=== PATIENT | female | born 1955 | race Caucasian/White ===

== ENCOUNTER → 2017-01-28 | Outpatient (CLI) | payer MEDICARE ==
[~2017-01-28] MED LIST: ABAT125S IV; ALBU0.632 IH; ALBU2.5V4 IH; ALBU8.5H2 IH; ALEN35TA32 PO; ALPR.5T; ALPR0.5T22 PO; ALPR1T PO; ALPR1TAB2 PO; ALPR1TAB7 PO; AMIT75TA2 PO; AMITRIPTYLINE; AMLO5TAB2 PO; ARIP2TAB10 PO; ARIP5TAB12 PO; ASP325T PO; ATOR40TA70; ATOR40TA70 PO; AZIT-21 PO; B1/B1TAB2; B6; BENZ100C18 PO; BENZ200C25 PO; BUDE10.22 IH; BUDE10.22 INH; BUPR200T PO; CALC-913 PO; CALC600T; CALC600T25 PO; CEFD300C3 PO; CEPH500C PO; CHOL10003 PO; CHOL200018 PO; CHOL200059 PO; CITA10TA70; CYAN10007 PO; D3; DCS100C PO; DICY10CA12; DICY20TA57 PO; DIPH25TA82 PO; DULA0.75 SQ; ESTROBLEND; ETAN50PE; EZET10TA5 PO; FAMO10TA71 PO; FAMO20TA5 PO; FLC1T; FLC1T PO; FLUO20CA42 PO; FLUO40CA PO; FLUT100D IH; FLUT1AER IN; FLUT50DI IH; FRSM40T PO; FURO20TA4 PO; FURO40TA4; GABA300C; GABA300C PO; GABA600T2; GARL400T13; GBPN300C; GBPN600T PO; GUAI100L2 PO; HUMIRA INJ; HYDR100T5; HYDR200T46 PO; IBP600T1; IBP600T1 PO; IBUP-15; KLOR-CON; LEVO500T69 PO; LEVO750T24 PO; MECL12.579 PO; MELO-198 PO; MELO7.5T46 PO; METH-288 PO; METH20TA34 PO; METH25VI31 IJ; METH4TAB PO; METHOTREXATE; METO-333 PO; METO25TA2 PO; METO25TA6 PO; MORP15TA PO; MTX2.5T; MTX2.5T PO; MULT-35 PO; MULT1CAP27 PO; MULT1TAB PO; MULTI VITAMIN; NF-ESOM40C PO; NITR0.3T6 SL; NITR0.4T12 SL; NITR100C10 PO; OMEG-109 PO; OMEP40CA36 PO; ORENCIA; PARO12.5; PARO40TA47 PO; PLAQUENIL; PLAQUNIL; POTA10TA6 PO; PRD10T PO; PRD20T PO; PRD50T PO; PRD5T PO; PRED2.5T4 PO; QTP25T PO; RABE20TA PO; RANI-10; RANI75TA30 PO; RNT150T PO; RT-ALBUINH INH; SCR1T1 PO; SIMV20TA3 PO; SOLI5TAB4 PO; SULF1TAB35 PO; TOFA5TAB PO; TRAM50TA2 PO; TRM50T PO; VENL100T PO; VENL150C98 PO; VENL75CA93 PO; VIT B-12; VIT B-6; VIT D-3; VIT E; ZOLP5TAB7 PO; [UNRECOGNIZED DRUG - CODE] IV; [UNRECOGNIZED DRUG - OTHER]; vitamin B6; vitamin e
--- NOTE | 2017-02-01 13:57 | ECHOCARDIOGRAPHY REPORT ---
DATE OF SERVICE: 01/28/2017 REFERRING PHYSICIAN: [facility]. TEST DATE: 01/28/2017. MEASUREMENTS: LVID end diastolic 3.7. IVS thickness 1.0 LVPW thickness 1.0. Left atrial diameter 2.7. Ejection fraction 60%. FINDINGS: 1. Technical quality is good. 2. The left ventricle is normal in size with normal contractility, systolic function appears to be normal. Estimated ejection fraction 60%. 3. The left atrium is normal in size. No clot or thrombus were seen within the left atrium. 4. The right atrium and right ventricle are normal in size. No clot or thrombus were seen within the right side. 5. Mitral valve is normal in morphology with mild mitral regurgitation noted by color Doppler flow. No mitral valve prolapse. No mitral valve stenosis. 6. Aortic valve is trileaflet with normal opening and closing pattern. No significant aortic stenosis or regurgitation was seen. 7. Tricuspid valve is normal in morphology with mild tricuspid regurgitation noted by color Doppler flow. Doppler echo tricuspid valve estimated pulmonary artery pressure of 13 plus right atrial pressure. 8. Pulmonic valve is functioning normally. 9. No pericardial effusion. CONCLUSION: 1. Normal left ventricular size and systolic function. Estimated ejection fraction 60%. 2. Mild mitral and tricuspid regurgitation. 3. Estimated pulmonary artery pressure of 20 mmHg. Job ID: [id number] DocumentID: [id number] Dictated Date: 02/01/2017 10:07:45 Tool And Gauge Inspector Date: 02/01/2017 10:39:50 Dictated By: NADIYA SCOTT MD
== END ==
LOC: CARD 13:19
PROVIDERS: ATTEND Physician Assistant
DX: I25.10 Atherosclerotic heart disease of native coronary artery without angina pectoris (principal); K21.9 Gastro-esophageal reflux disease without esophagitis; I10 Essential (primary) hypertension; R55 Syncope and collapse
CPT/HCPCS: 93306

== ENCOUNTER 2017-03-29 05:32 | Outpatient (CLI) | payer MEDICARE, MEDICAID ==
[~2017-03-29] VITALS: Ht 167.6 cm; Wt 83.2 kg
[2017-03-29] MEDS ORDERED: FLUT1DIS28 IH (11:28)
[2017-03-29] MEDS ORDERED: EZET10TA5 PO (11:28)
[2017-03-29] MEDS ORDERED: CYCL10TA9 PO (11:28)
[2017-03-29] MEDS ORDERED: DULA1.5P2 SQ (11:28)
[2017-03-29] MEDS ORDERED: ONDA4TAB11 PO (11:28)
[2017-03-29] MEDS ORDERED: GABA600T2 PO (11:28)
== END 2017-03-29 11:41 ==
LOC: PREOP 05:32
PROVIDERS: ATTEND Orthopaedic Surgery
DX: Z01.818 Encounter for other preprocedural examination (principal); M75.02 Adhesive capsulitis of left shoulder

== ENCOUNTER 2017-03-31 10:18 | Day surgery (SDC) | payer MEDICARE, MEDICAID ==
--- NOTE | 2017-03-23 10:36 | HISTORY AND PHYSICAL ---
DATE OF SERVICE: 03/31/2017 REASON FOR ADMISSION: Outpatient surgery on 03/31/2017 for left shoulder manipulation. HISTORY OF PRESENT ILLNESS: The patient is a 61-year-old right-hand dominant female with complaints of left shoulder pain and stiffness. She has undergone treatment with injections, physical therapy, rest and activity modifications without relief. She reports that she has had no improvement with her motion. Her pain has improved. She reports difficulty with sleeping. This has been ongoing for 4 months and due to failure to improve with conservative measures, the patient elected to proceed with manipulation under anesthesia. REVIEW OF SYSTEMS: No chest pain, no shortness of breath, no dysuria. PAST MEDICAL HISTORY: Rheumatoid arthritis, osteoporosis, anxiety, arthritis, autoimmune disease, depression, coronary artery disease, hypertension, hypercholesterolemia, reflux, asthma, irritable bowel syndrome. PAST SURGICAL HISTORY: Tonsillectomy, tubal ligation, bladder suspension, tongue biopsy, port placement and removal. FAMILY HISTORY: Significant for cancer, alcoholism, depression and heart disease. PRIMARY CARE PROVIDER: [facility]. MEDICATIONS: Gabapentin, metoprolol, Effexor, tramadol, Prilosec, Zetia, atorvastatin, Xelijanz, albuterol, Advair, ProAir, Zofran, Trulicity, morphine, cyclobenzaprine. ALLERGIES: SOLU-MEDROL, CODEINE, DOXYCYCLINE, OXYBUTYNIN, HYDROCODONE, IV DYE and PAXIL. SOCIAL HISTORY: The patient is a former smoker. Denies alcohol use. PHYSICAL EXAMINATION: GENERAL: The patient is well-developed, well-nourished, in no acute distress. HEENT: Normocephalic, atraumatic. Pupils are equal, round and reactive to light. Oropharynx is clear. NECK: Supple. No lymphadenopathy. LUNGS: Clear to auscultation bilaterally. HEART: Regular rate and rhythm. ABDOMEN: Soft, nontender and nondistended. EXTREMITIES: The left shoulder demonstrates no atrophy. She has active forward elevation to 90 degrees, passive to 130, external rotation actively is 20 degrees, internal rotation to her left buttock. She has no gross weakness with external rotation or abduction. IMPRESSION: Left shoulder adhesive capsulitis. PLAN: Left shoulder manipulation under the anesthesia. The risks, benefits, options, ramifications and recovery have been discussed at length with the patient. She understands and wishes to proceed. Job ID: [id number] DocumentID: [id number] Dictated Date: 03/23/2017 09:33:14 Sausage Inspector Date: 03/23/2017 10:19:05 Dictated By: ORLANDO HOFFMAN MD
[~2017-03-31] VITALS: Ht 167.6 cm; Wt 83.2 kg
[~2017-03-31 10:18] MED LIST changes: +CYCL10TA9 PO; +DULA1.5P2 SQ; +FLUT1DIS28 IH; +GABA600T2 PO; +LACTATED RINGERS 1,000 ML IV PRN; +LIDOCAINE PF 2% 5 ML (XYLOCAINE) VIAL ONE; +ONDA4TAB11 PO; +ONDANSETRON 4 MG/2 ML (SDV) Z0FRAN ONE; +fentaNYL INJECTION 100 MCG/2 ML AMP ONE; +proPOfol 200 MG/20 ML (DIPRIVAN) VIAL IV ONE
[2017-03-31 10:25] VITALS: BP 127/84
[2017-03-31] MEDS ORDERED: oxyCODONE/APAP 5/325MG (PERCOCET 5) TABLET PO PRN (10:30)
--- NOTE | 2017-03-31 10:36 | Progress Note-Pre Operative ---
Pre-Operative Progress Note H&P Reviewed The H&P was reviewed, patient examined and no changes noted. Date Seen by Provider: Mar 31, 2017 Time Seen by Provider: 10:36 Date H&P Reviewed: Mar 31, 2017 Time H&P Reviewed: 10:36 Pre-Operative Diagnosis: left shoulder adhesive capsulitis ORLANDO HOFFMAN MD Mar 31, 2017 10:36
--- NOTE | 2017-03-31 10:37 | Progress Note-Post Operative ---
Post-Operative Progess Note Surgeon (s)/Correctional Case Manager (s) Surgeon ORLANDO HOFFMAN MD Correctional Case Manager: Carlos Medina Pre-Operative Diagnosis left shoulder adhesive capsulitis Post-Operative Diagnosis left shoulder adhesive capsulitis Procedure & Operative Findings Date of Procedure 03/31/17 Procedure Performed/Findings left shoulder manipulation under anesthesia Anesthesia Type MAC Estimated Blood Loss Estimated blood loss (mL): none Specimens/Packing Specimens Removed none Packing: none ORLANDO HOFFMAN MD Mar 31, 2017 10:37
[2017-03-31] MEDS ORDERED: LACTATED RINGERS 1,000 ML IV PRN (10:57)
[2017-03-31] MEDS ORDERED: fentaNYL INJECTION 100 MCG/2 ML AMP ONE (11:31)
[2017-03-31] MEDS ORDERED: fentaNYL INJECTION 100 MCG/2 ML AMP IVP ONE (11:45)
[2017-03-31 11:55] VITALS: BP 145/85
[2017-03-31 12:25] VITALS: BP 149/97
[2017-03-31 13:05] VITALS: BP 148/84
[2017-03-31 13:10] VITALS: BP 148/84
--- NOTE | 2017-03-31 19:06 | OPERATIVE REPORT ---
DATE OF SERVICE: 03/31/2017 PREOPERATIVE DIAGNOSIS: Left shoulder adhesive capsulitis. POSTOPERATIVE DIAGNOSIS: Left shoulder adhesive capsulitis. PROCEDURE: Left shoulder manipulation under anesthesia. SURGEON: Woody Hoffman MD PLUMBING FOREMAN: MICHELLE Valles ANESTHESIA: Monitored anesthesia care by Josefina Edwards CRNA. ESTIMATED BLOOD LOSS: Not applicable. DRAINS: None. COMPLICATIONS: None. POSTOPERATIVE PLAN: Early range of motion. The patient was transferred to the recovery room, awake and in stable condition. STATEMENT OF MEDICAL NECESSITY: The patient is a 61-year-old female with complaints of left shoulder stiffness and pain. She has undergone treatment with therapy, home exercise program and anti-inflammatories as well as injections without relief and due to failure to obtain full motion. The patient elected to proceed with surgical manipulation. DESCRIPTION OF PROCEDURE: After risks and benefits of the procedure were discussed and questions were answered, an informed consent was signed and placed on the chart. The operative site was confirmed in the preoperative holding area and initialed by the surgeon. The patient was then transported to the operating room after adequate levels of monitored anesthesia care were obtained. A timeout was called, confirming the operative site. Manipulation was then performed. The patient lacked approximately 15 degrees to full forward elevation or stabilizing the scapula. The arm was brought into the forward elevation to a symmetric contralateral side. The arm was then brought to a side. An external rotation was performed while stabilizing the scapula until symmetric. The arm was then brought into 90 degrees of abduction and external and internal rotations were performed until symmetric to contralateral side. The arm was adducted and was symmetric as well. The humerus moved as unit post manipulation and the patient was transferred to the recovery room in awake and in stable condition. Job ID: [id number] DocumentID: [id number] Dictated Date: 03/31/2017 11:27:44 Bead Machine Operator Date: 03/31/2017 16:01:35 Dictated By: WOODY HOFFMAN MD
--- OUTSIDE RECORDS SUMMARY | 2017-04-01 18:31 | XMS REPORT ---
Author Author WILMA DIEGO [facility] eClinicalWorks Address Unknown Phone Unavailable Care Team Providers Care Deep Fat Cook Fry Name Role Phone WILMA DIEGO Unavailable Allergies No Known Allergies Problems Problem Type Condition Code Onset Dates Condition Status Problem Abnormal weight gain 783.1 Active Problem Pain in thoracic spine 724.1 Active Problem Cervicalgia 723.1 Active Problem Generalized anxiety disorder F41.1 Active Assessment Dysthymic disorder F34.1 Active Problem Dysthymic disorder F34.1 Active Problem ADHD (attention deficit hyperactivity disorder), combined type F90.2 Active Problem Hidradenitis 705.83 Active Problem Unspecified breast screening V76.10 Active Problem Other malaise and fatigue 780.79 Active Problem Screening for malignant neoplasm of the cervix V76.2 Active Problem Generalized hyperhidrosis 780.8 Active Problem Major depressive disorder, recurrent episode, severe, without mention of psychotic behavior 296.33 Active Assessment Generalized anxiety disorder F41.1 Active Assessment ADHD (attention deficit hyperactivity disorder), combined type F90.2 Active Problem Dysuria 788.1 Active Problem Dizziness and giddiness 780.4 Active Problem Fever, unspecified 780.60 Active Problem Unspecified hemorrhoids without mention of complication 455.6 Active Problem Cough 786.2 Active Problem Leukoplakia of oral mucosa, 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
--- OUTSIDE RECORDS SUMMARY | 2017-04-01 18:31 | XMS REPORT ---
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 Problem Screening for malignant neoplasm of the cervix V76.2 Active Problem Hidradenitis 705.83 Active Problem Other malaise and fatigue 780.79 Active Problem Cervicalgia 723.1 Active Problem Abnormal weight gain 783.1 Active Problem Unspecified breast screening V76.10 Active Problem Pain in thoracic spine 724.1 Active Problem Generalized hyperhidrosis 780.8 Active Problem Fever, unspecified 780.60 Active Problem Cough 786.2 Active Problem Agoraphobia with panic disorder 300.21 Active Problem Dysuria 788.1 Active Problem Major depressive disorder, recurrent episode, severe, without mention of psychotic behavior 296.33 Active Problem Dizziness and giddiness 780.4 Active Medications No Known Medications Results No Known Results Summary Purpose eClinicalWorks Submission
--- OUTSIDE RECORDS SUMMARY | 2017-04-01 18:31 | XMS REPORT ---
Author Author ZENAIDA BROTHERS [facility] eClinicalWorks Address Unknown Phone Unavailable Care Team Providers Care Process Engineering Manager Name Role Phone ZENAIDA BROTHERS Unavailable Allergies No Known Allergies Problems Problem Type Condition Code Onset Dates Condition Status Problem Dysthymic disorder F34.1 Active Problem ADHD (attention deficit hyperactivity disorder), combined type F90.2 Active Problem Generalized anxiety disorder F41.1 Active Problem Mixed hyperlipidemia E78.2 Active Problem Asthma J45.909 Active Problem Arteriosclerotic coronary artery disease I25.10 Active Problem Weight gain R63.5 Active Problem Chronic pain syndrome G89.4 Active Problem Hypertension I10 Active Problem Rheumatoid arthritis M06.9 Active Medications Medication Code System Code Instructions Start Date End Date Status Dosage Xanax [facility] [address]-54 1 MG Orally Twice a day December 11, 2014 take 1 tablet Results No Known Results Summary Purpose eClinicalWorks Submission
--- OUTSIDE RECORDS SUMMARY | 2017-04-01 18:32 | XMS REPORT ---
Author Author [facility] Medical Staff Organization [facility] Address [address], [place] [id number] Phone [phone] Care Team Providers Care Leaf Fat Scraper Name Role Phone TREVER MORGAN PP [phone] Summary purpose TRANSITION OF CARE AUTO GENERATION Chief Complaint and Reason for Visit Admit Diagnosis 1 INTERSTIM IMPLANT Problem list No authorized problems tracked for continuity of care are available for this visit. Encounters No authorized problems tracked for encounter diagnoses are available for this visit. Medications No medications recorded for this patient visit Allergies, adverse reactions, alerts Allergen Category Ingredient Status Reaction Severity Onset PAPER TAPE Miscellaneous Allergy PAPER TAPE Confirmed or Verified redness Moderate Adult oxybutynin Drug Allergy oxybutynin Confirmed or Verified mouth sores Moderate Adult hydrocodone Drug Allergy hydrocodone Confirmed or Verified Swelling Severe Adult codeine Drug Allergy codeine Confirmed or Verified Swelling Severe Adult methylprednisolone Drug Allergy methylprednisolone Confirmed or Verified Swelling Severe Adult doxycycline Drug Allergy doxycycline Confirmed or Verified Immunizations No immunizations recorded for this patient visit Relevant diagnostic tests and/or laboratory data RESULTS Chemistry 05-84-635891:10:00 Result Normal Range Units Sodium 141 134-145 mEq/l Potassium 4.0 3.5-5.1 mEq/l Chloride 105 98-107 mEq/l CO2 27.3 22-28 mEq/l Glucose H 110 70-105 mg/dl BUN L 5 7-18 mg/dl Creatinine H 1.03 0.6-1.0 mg/dl Calcium 9.0 8.4-10.2 mg/dl Osmolality L 279.2 280-300 mOsm/L Anion GAP 8.7 8-16 BUN/Creatinine Ratio L 4.9 10-20 Estimated GFR L 55 >=60 mL/min/1.7 Hematology 76-33-185139:10:00 Result Normal Range Units WBC 7.8 4.8-10.8 103/uL RBC 4.5 4.2-5.4 106/uL HGB 13.5 12.0-16.0 g/dl HCT 41.0 36.9-47.0 % MCV 90.7 81-99 FL MCH 29.9 27-31 pg MCHC L 32.9 33-37 g/dl RDW 14.8 11.5-15.5 % PLT 245 130-400 103/uL MPV 9.8 7.3-10.4 FL Neutro % 69.5 40-70 % Lymph % 22.8 20-40 % [place] % 4.9 0-10.0 % Eos % 1.9 0-7.0 % Baso % 0.4 0-2 % Neutro # 5.4 1.5-7.5 103/uL Lymph # 1.8 0.9-4.0 103/uL [place] # 0.4 0-0.8 103/uL Eos # 0.2 0-0.6 103/uL Baso # 0.0 0-0.1 103/uL Radiology Results 09-18-822890:59:00 SACRUM COCCYX XRAY - 2V PACs Image DATE OF EXAM: 2014 RAD [id number] XRAY-2 VIEW : RADIOLOGY REPORT DATE OF SERVICE: 06/18/15 HISTORY: Placement of InterStim. PORTABLE SACRUM AND [id number] HOURS Images were obtained with the portable image intensifier. Transsacral stimulator is inserted via a left mid transsacral approach. Final films show placement of the catheter extending anterior to the mid left sacrum. IMPRESSION: Placement of transsacral stimulator as above. MD OSCAR Reese/co06/18/2015 11:58:00 / 06/18/2015 12:21:11 cc:Dr. Panda Jordan This document has been electronically Signed by: On: DATE OF EXAM: 2014 RAD [id number] XRAY-2 VIEW : RADIOLOGY REPORT DATE OF SERVICE: 06/18/15 HISTORY: Placement of InterStim. PORTABLE SACRUM AND [id number] HOURS Images were obtained with the portable image intensifier. Transsacral stimulator is inserted via a left mid transsacral approach. Final films show placement of the catheter extending anterior to the mid left sacrum. IMPRESSION: Placement of transsacral stimulator as above. MD OSCAR Reese/co06/18/2015 11:58:00 / 06/18/2015 12:21:11 cc:Dr. Panda Jordan This document has been electronically Signed by: ORLANDO AGUSTIN On: 20141:59P INTERSTIM IMPLANT Result Amended on 2015-06-18 at 13:59:03. Previous status was [facility]. INTERSTIM IMPLANT 23-73-405760:10:00 Result Normal Range Units MPV 9.8 7.3-10.4 FL History of procedures No procedures recorded for this patient visit. Functional status Functional Status Finding Observation Time Hearing Prob Loc none 75-17-753090:45 Vision Problems yes 32-04-678541:45 Vision Correct Dev glasses 61-43-953720:45 Ambulation Asst Dev none 13-18-946981:45 Range of Motion full 51-78-579292:11 Muscle Strength RUE 5 ROM full resist 17-72-965122:11 Muscle Strength RLE 5 ROM full resist 85-63-348397:11 Muscle Strength LUE 5 ROM full resist 81-76-655117:11 Muscle Strength LLE 5 ROM full resist 46-90-439669:11 Transfers assist x 1 97-45-882499:11 Ambulation in room 78-19-937019:11 Balance steady 59-29-702883:11 Bathing Assistance none 54-50-899697:45 Eating Assistance none 93-03-388461:45 Dressing Assistance none 69-60-631106:45 Toileting Assistance none 40-75-684620:45 Transfer Assistance none 82-50-277032:45 Decline Slf Care/Mob no 65-50-061160:45 Phys Cond Stable yes 98-42-557402:45 Nutrition normal 75-13-450000:11 Diet regular 36-98-631636:11 Oral Cavity moist and intact 46-16-175468:11 Teeth dentures 53-91-957338:11 Dental Hygiene good 32-20-792592:11 Abdomen Appearance obese :11 Abdomen soft 40-35-694719:11 Bowel Sounds present 06-83-162428:11 NG Tube no 60-22-517742:11 Feeding Tube none 54-90-201012:11 Rosales no 71-78-498647:11 Cont Bladder Irr no 36-27-777820:11 Ostomy no 62-99-518785:11 Stool normal 87-24-628927:11 Color normal 96-74-643199:11 Consistency normal :11 Urination normal :11 Urine Clarity clear :11 Urine Color straw 68-03-913346:11 Quality sym/unlabored 28-56-886997:11 Cough absent :11 Secretions no :11 Secretion Consist thin :11 Secretion Color clear :11 Breath Sounds RUL clear 19-54-115985:11 Breath Sounds RML clear :11 Breath Sounds RLL clear :11 Breath Sounds SHERITA clear :11 Breath Sounds LLL clear 71-43-522234:11 Airway natural :11 Chest Tube no 23-74-643313:11 Oxygen no 98-20-984594:45 C-PAP no 70-87-690600:11 BI-PAP no 18-88-386941:11 New Infection other (specify) 42-66-991897:11 Temp >100.4 no :11 Temp <96.8 no :11 Chills with rigors no :11 HR > 90bpm no :11 Respirations > 20 no 65-95-577560:11 Systolic <90 no :11 headache stiff neck no 29-53-484834:11 WBC > 83090 no 17-99-849881:11 WBC < 4000 no 94-98-842884:11 Rapid Resp no 41-78-943627:11 VAD Type courtney-cath 96-08-245553:20 VAD Location l chest` :20 VAD Site Info discontinued Comment: pt states her port is a grashon and does not require heparin flush. port flushed withe 10cc normal saline flush as reported by the patient for flushing. :20 VAD Site Appearance WNL 25-56-087717:20 VAD Site Color clear 99-94-257585:20 VAD Site Patent yes :20 VAD Dressing Changed yes :20 VAD Dressing Type occlusive :20 Nursing Note pt received education from [facility] et acknowledged understanding. dc'd to car per w/c in good condition accompanied by her family. :20 Cognitive Status Finding Observation Time Oriented To Date 5 Yes 33-21-695505:[address] 5 Yes :45 Name 3 Objects 3 Yes :45 Name Object in Rm 2 Yes :45 Recall 3 Objects 3 Yes :45 Repeats a Phrase 1 Yes :45 Follows Verbal Direc 3 Yes :45 Follows Written Dire 1 Yes :45 Write a Sentance 1 Yes :45 Draw an Object 1 Yes :45 Mini Mental Total 25 points :45 Learning Ability comprehends well :38 Neurological no :38 Psychological no :38 Physical no :38 Hearing no :38 Supervisor Lace Tearing Needed no :38 Sign Language no :38 Emotional no :38 Vision no :38 Laguage no :38 Financial no :38 Vital signs Type Value Date Respiration Rate 18breaths per minute :45 Pulse 73beats per minute :45 Oxygen Saturation 97% :45 BP Systolic 143mmHg :45 BP Diastolic 53mmHg :45 Temperature 97.5F :10 Height 66inches :51 Weight 242LB :51 Social history Type Value Smoking Status CURRENT EVERY DAY SMOKER Treatment Plan No treatment plan text is available for this visit. Hospital discharge instructions Discharge Date/Time 06/18/2015 1420 Comment: time added This result is a modification to a previously-entered result. It was modified on 06/18/15 at 14:29 by ROBERTH. Accompanied By family members Relationship child Dismissal Condition good Disposition on DC home Valuables no DC Inst/Educ Give yes Exit Care Educ Given yes Med/Side Effects Rev yes PNE Vac 03/2010 Flu Vac 2013 Tetanus Vac Unknown Medical Equipment interstim devise Diet Explained yes Follow up appt appt made (specify) Follow Up Appt D/T 07/05/15 1:40 pm
--- OUTSIDE RECORDS SUMMARY | 2017-04-01 18:32 | XMS REPORT ---
Author Author FLORENTINO TATA Organization [facility] Address [address] [place] [address] Care Team Providers Care Poultry Trimmer Name Role Phone TATA GOOD Unavailable PROBLEMS Type Condition ICD9-CM Code [id number] Code Onset Dates Condition Status SNOMED Code Problem Generalized anxiety disorder F41.1 Active 67250933 Problem Dysthymic disorder F34.1 Active 77119136 Problem Asthma J45.909 Active 262486274 Problem Hypertension I10 Active 18963736 Problem Chronic pain syndrome G89.4 Active 538127011 Problem ADHD (attention deficit hyperactivity disorder), combined type F90.2 Active 04048835 Problem Rheumatoid arthritis M06.9 Active 76045697 Problem Weight gain R63.5 Active 9521946 ALLERGIES Unknown Allergies SOCIAL HISTORY No smoking Hx information available PLAN OF CARE VITAL SIGNS MEDICATIONS Medication Instructions Dosage Frequency Start Date End Date Duration Status Ritalin 20 mg Orally daily 1 tablet every am and 1/2 tab at noon, 1/2 tab at 1500. 24h Sep, Active RESULTS No Results PROCEDURES No Known procedures IMMUNIZATIONS No Known Immunizations
--- OUTSIDE RECORDS SUMMARY | 2017-04-01 18:32 | XMS REPORT | Clinical Summary ---
Author Author Admin, [facility] Organization [facility] Address Unknown Phone Unavailable Allergies, Adverse Reactions, Alerts Allergy Name Reaction Description Start Date Severity Status Provider No Known Allergies Aaliyah Elder Conditions or Problems Problem Name Problem Code Onset Date Status Entry Date Provider Comment Standard Description Annotate Anxiety 300.00 Active Parris Jordan MD Anxiety state, unspecified (History of) Depression 311 Active Parris Jordan MD Depressive disorder, not elsewhere classified Hyperlipidemia 272.4 Active Parris Jordan MD Other and unspecified hyperlipidemia Hypertension 401.9 Active Parris Jordan MD Unspecified essential hypertension Osteoarthritis 715.90 Active Parris Jordan MD Osteoarthrosis, unspecified whether generalized or localized, involving unspecified site INCONTINENCE, URGE 788.31 Active Parris Jordan MD Urge incontinence Dysuria 788.1 Active Aaliyah Elder Dysuria U T I-Acute Active Parris Jordan MD Urinary tract infection, site not specified Medication List Medication Instructions Start Date Stop Date Generic Name NDC Status Provider Patient Instruction RITALIN 10 MG ORAL TABS 1 tab by mputh daily METHYLPHENIDATE HCL 40206681019 Active Aaliyah Elder Active RITALIN 20 MG ORAL TABS 1 tab by mouth twice daily METHYLPHENIDATE HCL 73386936704 Active Aaliyah Elder Active NORVASC 5 MG ORAL TABS 1 qd AMLODIPINE BESYLATE 63406084523 No Longer Active Aaliyah Elder Active PROAIR HFA 108 (90 BASE) MCG/ACT INH AERS prn ALBUTEROL SULFATE 16334294117 Active Parris Jordan MD Active SYMBICORT 80-4.5 MCG/ACT INH AERO 2 puffs daily BUDESONIDE- FORMOTEROL FUMARATE 85607097193 Active Parris Jordan MD Active [facility] DAILY MULTIPLE ORAL TABS 1 qd MULTIPLE VITAMIN 03747484179 Active Parris Jordan MD Active CALCIUM 600 MG ORAL TABS 1 qd CALCIUM 56333536351 Active Parris Jordan MD Active [facility]S D3 CAPS 1 qd CHOLECALCIFEROL CAPS 06489772082 Active Parris Jordan MD Active EFFEXOR XR 75 MG ORAL [id number]-PEU 1 qd VENLAFAXINE HCL 68265426031 Active Parris Jordan MD Active XELJANZ 5 MG ORAL TABS 1 bid TOFACITINIB CITRATE 02859968148 Active Parris Jordan MD Active MELOXICAM 7.5 MG ORAL TABS 2 qd MELOXICAM 77105009642 Active Parris Jordan MD Active ATORVASTATIN CALCIUM 40 MG ORAL TABS 1 qd ATORVASTATIN CALCIUM 22250592515 Active Parris Jordan MD Active LOPRESSOR TABS 25 mg 1 bid METOPROLOL TARTRATE TABS 52663150804 Active Parris Jordan MD Active ALPRAZOLAM 1 MG ORAL TABS 1 tid ALPRAZOLAM 75609235424 Active Parris Jordan MD Active ABILIFY 5 MG ORAL TABS 1 qd ARIPIPRAZOLE 87737671270 Active Parris Jordan MD Active TRAMADOL HCL 50 MG ORAL TABS 4x a day TRAMADOL HCL 04824901149 Active Parris Jordan MD Active OMEPRAZOLE 40 MG ORAL CPDR 1 qd OMEPRAZOLE 31298455293 Active Parris Jordan MD Active NORVASC 5 MG ORAL TABS 1 qd NORVASC 5 MG ORAL TABS 803292 AMLODIPINE BESYLATE Inactive Advance Directives Directive Description Start Date PERMISSION TO SHARE Vital Signs Date Name Value Unit Range Description blood pressure, diastolic - 8462-4 90 mm[Hg] BP robert blood pressure, systolic - 8480-6 158 mm[Hg] BP sys pulse rate E&M - 8867-4 73 /min Heart rate temperature E&M 97.8 [degF] Body temperature weight E&M - 3141-9 233.5 [lb_av] Weight Measured blood pressure, diastolic - 8462-4 79 mm[Hg] BP robert blood pressure, systolic - 8480-6 131 mm[Hg] BP sys pulse rate E&M - 8867-4 87 /min Heart rate temperature E&M 96.5 [degF] Body temperature weight E&M - 3141-9 231.5 [lb_av] Weight Measured blood pressure, diastolic - 8462-4 92 mm[Hg] BP robert blood pressure, systolic - 8480-6 159 mm[Hg] BP sys pulse rate E&M - 8867-4 89 /min Heart rate weight E&M - 3141-9 238 [lb_av] Weight Measured blood pressure, diastolic - 8462-4 83 mm[Hg] BP robert blood pressure, systolic - 8480-6 128 mm[Hg] BP sys pulse rate E&M - 8867-4 69 /min Heart rate temperature E&M 96.4 [degF] Body temperature weight E&M - 3141-9 240 [lb_av] Weight Measured height E&M - 8302-2 66 [in_us] Bdy height pulse rate E&M - 8867-4 74 /min Heart rate temperature E&M 97.5 [degF] Body temperature weight E&M - 3141-9 245 [lb_av] Weight Measured Diagnostic Results Date Name Value Unit Range Description Chart Maintenance: Outside labs entered on flowsheet - Chemistry sodium, serum 141 mmol/L potassium, serum 4.0 mmol/L blood glucose 110 mg/dL creatinine, serum 1.03 mg/dL Chart Maintenance: Outside labs entered on flowsheet - Hematology leukocyte count, blood 7.8 10*3/mm3 hemoglobin, blood 13.5 g/dL platelet count 245 10*3/mm3 Office Visit: 2 week follow up uti/interstim - Chemistry RBC, urine, dipstick negative protein, total urine random negative mg/dL Office Visit: 2 week follow up uti/interstim - Urinalysis ketones, urine, by test strip negative bilirubin, urine negative glucose, urine, semiquantitative negative urinalysis, routine Clean Catch culture status No pH, urine, semiquantitative 5 specific gravity, urine 1.005 urine color yellow appearance, urine clear leukocyte esterase, urine, by dipstick negative nitrite, urine, semiquantitative negative urobilinogen, urine, semiquantitative (dipstick) negative protein, urine, semiquantitative (dipstick) negative Office Visit: CN Bladder spasms and Incontinence - Chemistry protein, total urine random negative mg/dL RBC, urine, dipstick negative Office Visit: CN Bladder spasms and Incontinence - Urinalysis ketones, urine, by test strip negative bilirubin, urine negative glucose, urine, semiquantitative negative urine color yellow appearance, urine clear leukocyte esterase, urine, by dipstick negative nitrite, urine, semiquantitative negative urobilinogen, urine, semiquantitative (dipstick) negative protein, urine, semiquantitative (dipstick) negative pH, urine, semiquantitative 5 specific gravity, urine 1.005 Office Visit: Interstim not working - Chemistry RBC, urine, dipstick negative protein, total urine random negative mg/dL Office Visit: Interstim not working - Urinalysis urinalysis, routine Clean Catch culture status Yes pH, urine, semiquantitative 5 specific gravity, urine 1.010 ketones, urine, by test strip negative bilirubin, urine negative glucose, urine, semiquantitative negative urine color yellow appearance, urine cloudy leukocyte esterase, urine, by dipstick 3+ nitrite, urine, semiquantitative positive urobilinogen, urine, semiquantitative (dipstick) 0.2 protein, urine, semiquantitative (dipstick) negative Encounters Code Encounter Date Provider Facility CPT-70952 Level 3 Est. Patient 16:06:50 CDT Parris Jordan MD [facility] CPT-60266 Level 3 Est. Patient 16:52:25 CDT Parris Jordan MD [facility] CPT-43415 Level 3 Est. Patient 17:13:41 CDT Parris Jordan MD [facility] CPT-77069 Level 4 New Patient 22:47:28 CDT Parris Jordan MD [facility] Procedures Code Procedure Name Date Entry Date Standard Description CPT-37259 Bladder Scan 16:06:50 CDT CPT-57121 Postop F/U Visit 11:51:38 CDT CPT-73551 Interstim trial 17:13:41 CDT
--- OUTSIDE RECORDS SUMMARY | 2017-04-01 18:32 | XMS REPORT ---
Author Author TATA GOOD Organization [employer] Address Unknown Phone Unavailable Care Team Providers Care Lot Associate Name Role Phone TATA GOOD CP Unavailable Allergies No Known Allergies Problems Problem Type Condition Code Onset Dates Condition Status Problem Dysthymic disorder F34.1 Active Problem Hypertension I10 Active Problem Rheumatoid arthritis M06.9 Active Problem Asthma J45.909 Active Problem ADHD (attention deficit hyperactivity disorder), combined type F90.2 Active Problem Generalized anxiety disorder F41.1 Active Problem Weight gain R63.5 Active Problem Chronic pain syndrome G89.4 Active Medications Medication Code System Code Instructions Start Date End Date Status Dosage Xanax [facility] [address]-19 1 MG Orally Three times a day as needed December 11, 2014 take 1 tablet Results No Known Results Summary Purpose [employer] Submission
--- OUTSIDE RECORDS SUMMARY | 2017-04-01 18:32 | XMS REPORT | Clinical Summary ---
Author Author Admin, QIE Organization [facility] Address Unknown Phone Unavailable Allergies, Adverse Reactions, Alerts Allergy Name Reaction Description Start Date Severity Status Provider IVP DYE Critical Active Parris Jordan MD SOLU-MEDROL Critical Active Parris Jordan MD DOXYCYCLINE Critical Active Parris Jordan MD CODEINE Critical Active Parris Jordan MD Conditions or Problems Problem Name Problem Code [...] MD Urge incontinence Dysuria 788.1 Active Aaliyah Alvares Dysuria U T I-Acute Active aPrris Jordan MD Urinary tract infection, site not specified Medication List Medication Instructions Start Date Stop Date Generic Name NDC Status Provider Patient Instruction NITROFURANTOIN MACROCRYSTAL 100 MG ORAL CAPS Take one by mouth daily NITROFURANTOIN MACROCRYSTAL 24524260851 Active Saima Blum Active TRULICITY 0.75 MG/0.5ML SC SOPN .qwk DULAGLUTIDE 89343836471 Active Parris Jordan MD Active ZETIA 10 MG ORAL TABS Take one by mouth daily EZETIMIBE 13521977982 Active Parris Jordan MD Active ABILIFY 5 MG ORAL TABS 1 qd ARIPIPRAZOLE 79853359855 No Longer Active Parris Jordan MD Active MELOXICAM 7.5 MG ORAL TABS 2 qd MELOXICAM 05370415616 No Longer Active Parris Jordan MD Active SYMBICORT 80-4.5 MCG/ACT INH AERO 2 puffs daily BUDESONIDE-FORMOTEROL FUMARATE 51990679481 No Longer Active Parris Jordan MD Active RITALIN 10 MG ORAL TABS 1 tab by mputh daily METHYLPHENIDATE HCL 53876257158 Active Aaliyah Elder Active RITALIN 20 MG ORAL TABS 1 tab by mouth twice daily METHYLPHENIDATE HCL 60334432749 Active Aaliyah Elder Active NORVASC 5 MG ORAL TABS 1 qd AMLODIPINE BESYLATE 52446848940 No Longer Active Aaliyah Alvares Active PROAIR HFA 108 (90 BASE) MCG/ACT INH AERS prn ALBUTEROL SULFATE 51997545166 Active Parris Jordan MD Active [facility] DAILY MULTIPLE ORAL TABS 1 qd MULTIPLE VITAMIN 38644822564 Active Parris Jordan MD Active CALCIUM 600 MG ORAL TABS 1 qd CALCIUM 35563853526 Active Parris Jordan MD Active [facility] D3 CAPS 1 qd CHOLECALCIFEROL CAPS 92862487611 Active Parris Jordan MD Active EFFEXOR XR 75 MG ORAL [id number] 1 qd VENLAFAXINE HCL 85931904384 Active Parris Jordan MD Active XELJANZ 5 MG ORAL TABS 1 bid TOFACITINIB CITRATE 13272464820 Active Parris Jordan MD Active ATORVASTATIN CALCIUM 40 MG ORAL TABS 1 qd ATORVASTATIN CALCIUM 03311295543 Active Parris Jordan MD Active LOPRESSOR TABS 25 mg 1 bid METOPROLOL TARTRATE TABS 99447055710 Active Parris Jordan MD Active ALPRAZOLAM 1 MG ORAL TABS 1 tid ALPRAZOLAM 93146153964 Active Parris Jordan MD Active TRAMADOL HCL 50 MG ORAL TABS 4x a day TRAMADOL HCL 82550940850 Active Parris Jordan MD Active OMEPRAZOLE 40 MG ORAL CPDR 1 qd OMEPRAZOLE 08069764673 Active Parris Jordan MD Active NORVASC 5 MG ORAL TABS 1 qd NORVASC 5 MG ORAL TABS 359221 AMLODIPINE BESYLATE Inactive SYMBICORT 80-4.5 MCG/ACT INH AERO 2 puffs daily SYMBICORT 80-4.5 MCG/ACT INH AERO BUDESONIDE-FORMOTEROL FUMARATE Inactive MELOXICAM 7.5 MG ORAL TABS 2 qd MELOXICAM 7.5 MG ORAL TABS 649900 MELOXICAM Inactive ABILIFY 5 MG ORAL TABS 1 qd ABILIFY 5 MG ORAL TABS 079698 ARIPIPRAZOLE Inactive Advance Directives Directive Description Start Date PERMISSION TO SHARE Vital Signs Date Name Value Unit Range Description blood pressure, diastolic - 8462-4 79 mm[Hg] BP robert blood pressure, systolic - 8480-6 146 mm[Hg] BP sys pulse rate E&M - 8867-4 97 /min Heart rate temperature E&M 96.2 [degF] Body temperature weight E&M - 3141-9 233 [lb_av] Weight Measured blood pressure, diastolic - 8462-4 90 mm[Hg] [...] E&M - 3141-9 231.5 [lb_av] Weight Measured Diagnostic Results Date Name Value Unit Range Description Office Visit: 2 week follow up uti/interstim [...] protein, urine, semiquantitative (dipstick) negative Office Visit: Interstim not working - Chemistry protein, total urine random negative mg/dL RBC, urine, dipstick negative Office Visit: Interstim not working - Urinalysis ketones, urine, by test strip negative bilirubin, urine negative glucose, urine, semiquantitative negative urine color yellow appearance, urine cloudy leukocyte esterase, urine, by dipstick 3+ nitrite, urine, semiquantitative positive urobilinogen, urine, semiquantitative (dipstick) 0.2 protein, urine, semiquantitative (dipstick) negative urinalysis, routine Clean Catch culture status Yes pH, urine, semiquantitative 5 specific gravity, urine 1.010 Encounters Code Encounter Date Provider Facility CPT-36480 Level 3 Est. Patient 16:17:17 CDT Parris Jordan MD [facility] CPT-94923 Level 3 Est. Patient 16:06:50 CDT Parris Jordan MD [facility] CPT-30930 Level 3 Est. Patient 16:52:25 CDT Parris Jordan MD [facility] CPT-85137 Level 3 Est. Patient 17:13:41 CDT Parris Jordan MD [facility] CPT-04532 Level 4 New Patient 22:47:28 CDT Parris Jordan MD [facility] Procedures Code Procedure Name Date Entry Date Standard Description CPT-90829 Bladder Scan 16:17:18 CDT CPT-90237 Bladder Scan 16:06:50 CDT CPT-05081 Postop F/U Visit 11:51:38 CDT CPT-73074 Interstim trial 17:13:41 CDT
--- OUTSIDE RECORDS SUMMARY | 2017-04-01 18:32 | XMS REPORT ---
Author Author WILMA DIEGO [facility] Address [address] [place] [address] Care Team Providers Care Hot Mill Observer Name Role Phone WILMA DIEGO Unavailable PROBLEMS Type Condition ICD9-CM Code [id number] Code Onset Dates Condition Status SNOMED Code Assessment ADHD (attention deficit hyperactivity disorder), combined type F90.2 Jun, Active 786248044 Problem Generalized anxiety disorder F41.1 Active 70329194 Problem Dysthymic disorder F34.1 Active 62649794 Problem Asthma J45.909 Active 793612312 Problem Hypertension I10 Active 70931086 Problem Chronic pain syndrome G89.4 Active 272384189 Problem ADHD (attention deficit hyperactivity disorder), combined type F90.2 Active 61560228 Problem Rheumatoid arthritis M06.9 Active 48802079 Problem Weight gain R63.5 Active 6371652 ALLERGIES Unknown Allergies SOCIAL HISTORY No smoking Hx information available PLAN OF CARE VITAL SIGNS MEDICATIONS Unknown Medications RESULTS No Results PROCEDURES Procedure Date Ordered Related Diagnosis Body Site [facility] VISIT MENTAL HEALTH ESTAB PT Jun 16, 2016 Psychotherapy, patient &/family, 30 minutes, established patient Jun 16, 2016 IMMUNIZATIONS No Known Immunizations
--- OUTSIDE RECORDS SUMMARY | 2017-04-01 18:33 | XMS REPORT | Clinical Summary ---
Author Author Admin, [facility] Organization [facility] Address Unknown Phone Unavailable Allergies, Adverse Reactions, Alerts Allergy Name Reaction Description Start Date Severity Status Provider Allergies Unknown Conditions or Problems Problem Name Problem Code Onset Date Status Entry Date Provider Comment Standard Description Annotate Problems Unknown Active Medication List Medication Instructions Start Date Stop Date Generic Name NDC Status Provider Patient Instruction Drug Treatment Unknown - unknown
--- OUTSIDE RECORDS SUMMARY | 2017-04-01 18:33 | XMS REPORT | Clinical Summary ---
Author Author Admin, E Organization [facility] Address Unknown Phone Unavailable Allergies, Adverse Reactions, [...] Generic Name NDC Status Provider Patient Instruction TRULICITY 0.75 MG/0.5ML SC SOPN .qwk DULAGLUTIDE 90805367580 Active Parris Jordan MD Active ZETIA 10 MG ORAL TABS Take one by mouth daily EZETIMIBE 59709030939 Active Parris Jordan MD Active ABILIFY 5 MG ORAL TABS 1 qd ARIPIPRAZOLE 48103305277 No Longer Active Parris Jordan MD Active MELOXICAM 7.5 MG ORAL TABS 2 qd MELOXICAM 24955081345 No Longer Active Parris Jordan MD Active SYMBICORT 80-4.5 MCG/ACT INH AERO 2 puffs daily BUDESONIDE-FORMOTEROL FUMARATE 46358790066 No Longer Active Parris Jordan MD Active RITALIN 10 MG ORAL TABS 1 tab by mputh daily METHYLPHENIDATE HCL 57124512633 Active Aaliyah Elder Active RITALIN 20 MG ORAL TABS 1 tab by mouth twice daily METHYLPHENIDATE HCL 35876862123 Active Aaliyah Elder Active NORVASC 5 MG ORAL TABS 1 qd AMLODIPINE BESYLATE 26354783087 No Longer Active Aaliyah Alvares Active PROAIR HFA 108 (90 BASE) MCG/ACT INH AERS prn ALBUTEROL SULFATE 17188381282 Active Parris Jordan MD Active CVS DAILY MULTIPLE ORAL TABS 1 qd MULTIPLE VITAMIN 77540956580 Active Parris Jordan MD Active CALCIUM 600 MG ORAL TABS 1 qd CALCIUM 65411999369 Active Parris Jordan MD Active CVS D3 CAPS 1 qd CHOLECALCIFEROL CAPS 44967132959 Active Parris Jordan MD Active EFFEXOR XR 75 MG ORAL GH68D-SKS 1 qd VENLAFAXINE HCL 58789781254 Active Parris Jordan MD Active XELJANZ 5 MG ORAL TABS 1 bid TOFACITINIB CITRATE 31514408074 Active Parris Jordan MD Active ATORVASTATIN CALCIUM 40 MG ORAL TABS 1 qd ATORVASTATIN CALCIUM 68356655973 Active Parris Jordan MD Active LOPRESSOR TABS 25 mg 1 bid METOPROLOL TARTRATE TABS 42462471607 Active Parris Jordan MD Active ALPRAZOLAM 1 MG ORAL TABS 1 tid ALPRAZOLAM 15017623626 Active Parris Jordan MD Active TRAMADOL HCL 50 MG ORAL TABS 4x a day TRAMADOL HCL 09428069727 Active Parris Jordan MD Active OMEPRAZOLE 40 MG ORAL CPDR 1 qd OMEPRAZOLE 35321235638 Active Parris Jordan MD Active NORVASC 5 MG ORAL TABS 1 qd NORVASC 5 MG ORAL TABS 231627 AMLODIPINE BESYLATE Inactive SYMBICORT 80-4.5 MCG/ACT INH AERO 2 puffs daily SYMBICORT 80-4.5 MCG/ACT INH AERO BUDESONIDE-FORMOTEROL FUMARATE Inactive MELOXICAM 7.5 MG ORAL TABS 2 qd MELOXICAM 7.5 MG ORAL TABS 897398 MELOXICAM Inactive ABILIFY 5 MG ORAL TABS 1 qd ABILIFY 5 MG ORAL TABS 113848 ARIPIPRAZOLE Inactive Advance Directives Directive Description Start [...] E&M - 3141-9 240 [lb_av] Weight Measured Diagnostic Results Date Name Value Unit Range Description Chart Maintenance: Outside labs entered on [employer] - Chemistry sodium, serum 141 mmol/L potassium, serum 4.0 mmol/L blood glucose 110 mg/dL creatinine, serum 1.03 mg/dL Chart Maintenance: Outside labs entered on [employer] - Hematology leukocyte count, blood 7.8 10*3/mm3 hemoglobin, blood 13.5 g/dL platelet count 245 10*3/mm3 Office Visit: 2 week follow up uti/interstim - Chemistry protein, total urine random negative mg/dL RBC, urine, dipstick negative Office Visit: 2 week follow up uti/interstim [...] negative Encounters Code Encounter Date Provider Facility CPT-54930 Level 3 Est. Patient 16:17:17 CDT Parris Jordan MD [facility] CPT-85200 Level 3 Est. Patient 16:06:50 CDT Parris Jordan MD [facility] CPT-93616 Level 3 Est. Patient 16:52:25 CDT Parris Jordan MD [facility] CPT-81284 Level 3 Est. Patient 17:13:41 CDT Parris Jordan MD [facility] CPT-86400 Level 4 New Patient 22:47:28 CDT Parris Jordan MD [facility] Procedures Code Procedure Name Date Entry Date Standard Description CPT-49656 Bladder Scan 16:17:18 CDT CPT-74221 Bladder Scan 16:06:50 CDT CPT-73758 Postop F/U Visit 11:51:38 CDT CPT-02132 Interstim trial 17:13:41 CDT
--- OUTSIDE RECORDS SUMMARY | 2017-04-01 18:33 | XMS REPORT | Clinical Summary ---
Author Author Admin, QIE Organization [facility] Address Unknown Phone Unavailable Allergies, Adverse Reactions, [...] Aaliyah Alvares Dysuria U T I-Acute Active Parris Jordan MD Urinary tract infection, site not specified Medication List Medication Instructions Start Date Stop Date Generic Name NDC Status Provider Patient Instruction NITROFURANTOIN MACROCRYSTAL 100 MG ORAL CAPS Take one by mouth daily NITROFURANTOIN MACROCRYSTAL 50508373773 Active Saima Blum Active TRULICITY 0.75 MG/0.5ML SC SOPN .qwk DULAGLUTIDE 47821406703 Active Parris Jordan MD Active ZETIA 10 MG ORAL TABS Take one by mouth daily EZETIMIBE 80549086172 Active Parris Jordan MD Active ABILIFY 5 MG ORAL TABS 1 qd ARIPIPRAZOLE 27757071399 No Longer Active Parris Jordan MD Active MELOXICAM 7.5 MG ORAL TABS 2 qd MELOXICAM 72844410979 No Longer Active Parris Jordan MD Active SYMBICORT 80-4.5 MCG/ACT INH AERO 2 puffs daily BUDESONIDE-FORMOTEROL FUMARATE 12869676061 No Longer Active Parris Jordan MD Active RITALIN 10 MG ORAL TABS 1 tab by mputh daily METHYLPHENIDATE HCL 12633763829 Active Aaliyah Elder Active RITALIN 20 MG ORAL TABS 1 tab by mouth twice daily METHYLPHENIDATE HCL 10354151801 Active Aaliyah Elder Active NORVASC 5 MG ORAL TABS 1 qd AMLODIPINE BESYLATE 47427374625 No Longer Active Aaliyah Alvares Active PROAIR HFA 108 (90 BASE) MCG/ACT INH AERS prn ALBUTEROL SULFATE 86037586572 Active Parris Jordan MD Active CVS DAILY MULTIPLE ORAL TABS 1 qd MULTIPLE VITAMIN 08627244760 Active Parris Jordan MD Active CALCIUM 600 MG ORAL TABS 1 qd CALCIUM 24174421674 Active Parris Jordan MD Active CVS D3 CAPS 1 qd CHOLECALCIFEROL CAPS 25813536366 Active Parris Jordan MD Active EFFEXOR XR 75 MG ORAL FC48G-TOT 1 qd VENLAFAXINE HCL 09033530681 Active Parris Jordan MD Active XELJANZ 5 MG ORAL TABS 1 bid TOFACITINIB CITRATE 02539801894 Active Parris Jordan MD Active ATORVASTATIN CALCIUM 40 MG ORAL TABS 1 qd ATORVASTATIN CALCIUM 43475234623 Active Parris Jordan MD Active LOPRESSOR TABS 25 mg 1 bid METOPROLOL TARTRATE TABS 19103125827 Active Parris Jordan MD Active ALPRAZOLAM 1 MG ORAL TABS 1 tid ALPRAZOLAM 25681604745 Active Parris Jordan MD Active TRAMADOL HCL 50 MG ORAL TABS 4x a day TRAMADOL HCL 68603472886 Active Parris Jordan MD Active OMEPRAZOLE 40 MG ORAL CPDR 1 qd OMEPRAZOLE 43868697443 Active Parris Jordan MD Active NORVASC 5 MG ORAL TABS 1 qd NORVASC 5 MG ORAL TABS 787450 AMLODIPINE BESYLATE Inactive SYMBICORT 80-4.5 MCG/ACT INH AERO 2 puffs daily SYMBICORT 80-4.5 MCG/ACT INH AERO BUDESONIDE-FORMOTEROL FUMARATE Inactive MELOXICAM 7.5 MG ORAL TABS 2 qd MELOXICAM 7.5 MG ORAL TABS 740978 MELOXICAM Inactive ABILIFY 5 MG ORAL TABS 1 qd ABILIFY 5 MG ORAL TABS 748350 ARIPIPRAZOLE Inactive Advance Directives Directive Description Start [...] E&M - 3141-9 238 [lb_av] Weight Measured Diagnostic Results Date Name [...] 1.010 Encounters Code Encounter Date Provider Facility CPT-27897 Level 3 Est. Patient 16:17:17 CDT Parris Jordan MD [facility] CPT-50478 Level 3 Est. Patient 16:06:50 CDT Parris Jordan MD [facility] CPT-16307 Level 3 Est. Patient 16:52:25 CDT Parris Jordan MD [facility] CPT-20599 Level 3 Est. Patient 17:13:41 CDT Parris Jordan MD [facility] CPT-40918 Level 4 New Patient 22:47:28 CDT Parris Jordan [facility] Procedures Code Procedure Name Date Entry Date Standard Description CPT-96597 Bladder Scan 16:17:18 CDT CPT-06705 Bladder Scan 16:06:50 CDT CPT-73445 Postop F/U Visit 11:51:38 CDT CPT-13129 Interstim trial 17:13:41 CDT
--- OUTSIDE RECORDS SUMMARY | 2017-04-01 18:33 | XMS REPORT ---
Author Author LORI SNOWDEN Organization [employer] Address Unknown Phone Unavailable Care Team Providers Care Hvac Lead Name Role Phone LORI SNOWDEN CP Unavailable Allergies No Known Allergies Problems Problem Type Condition Code Onset Dates Condition Status Problem Abnormal weight gain 783.1 Active Problem Pain in thoracic spine 724.1 Active Problem Cervicalgia 723.1 Active Problem Generalized anxiety disorder F41.1 Active Problem Dysthymic disorder F34.1 Active Problem ADHD (attention deficit hyperactivity disorder), combined type F90.2 Active Problem Hidradenitis 705.83 Active Problem Unspecified breast screening V76.10 Active Problem Other malaise and fatigue 780.79 Active Problem Screening for malignant neoplasm of the cervix V76.2 Active Problem Generalized hyperhidrosis 780.8 Active Problem Major depressive disorder, recurrent episode, severe, without mention of psychotic behavior 296.33 Active Problem Dysuria 788.1 Active Problem Dizziness and giddiness 780.4 Active Problem Fever, unspecified 780.60 Active Problem Unspecified hemorrhoids without mention of complication 455.6 Active Problem Cough 786.2 Active Problem Leukoplakia of oral mucosa, 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
--- OUTSIDE RECORDS SUMMARY | 2017-04-01 18:33 | XMS REPORT ---
Author Author ZENAIDA BROTHERS [facility] eClinicalWorks Address Unknown Phone Unavailable Care Team Providers Care Rug Cutter Helper Name Role Phone ZENAIDA BROTHERS Unavailable Allergies [...] Instructions Start Date End Date Status Dosage Ritalin [facility] [address]-77 10 mg Orally Twice a day Sep 13, 2015 1/2 tablet Results No Known Results Summary Purpose eClinicalWorks Submission
--- OUTSIDE RECORDS SUMMARY | 2017-04-01 18:34 | XMS REPORT | Clinical Summary ---
Author Author Admin, [facility] Organization [facility] Address Unknown Phone Unavailable Allergies, Adverse Reactions, Alerts Allergy Name Reaction Description Start Date Severity Status Provider No Known Allergies Lakisha Shirley RN Conditions or Problems Problem Name Problem Code [...] 1 tab by mputh daily METHYLPHENIDATE HCL 79340850761 Active Aaliyah Elder Active RITALIN 20 MG ORAL TABS 1 tab by mouth twice daily METHYLPHENIDATE HCL 95228735447 Active Aaliyah Elder Active NORVASC 5 MG ORAL TABS 1 qd AMLODIPINE BESYLATE 87445302421 No Longer Active Aaliyah Elder Active PROAIR HFA 108 (90 BASE) MCG/ACT INH AERS prn ALBUTEROL SULFATE 48644963325 Active Parris Jordan MD Active SYMBICORT 80-4.5 MCG/ACT INH AERO 2 puffs daily BUDESONIDE- FORMOTEROL FUMARATE 90821986393 Active Parris Jordan MD Active [facility] DAILY MULTIPLE ORAL TABS 1 qd MULTIPLE VITAMIN 60085285994 Active Parris Jordan MD Active CALCIUM 600 MG ORAL TABS 1 qd CALCIUM 54850797616 Active Parris Jordan MD Active [facility]S D3 CAPS 1 qd CHOLECALCIFEROL CAPS 08371052633 Active Parris Jordan MD Active EFFEXOR XR 75 MG ORAL [id number] 1 qd VENLAFAXINE HCL 16155286160 Active Parris Jordan MD Active XELJANZ 5 MG ORAL TABS 1 bid TOFACITINIB CITRATE 65634567298 Active Parris Jordan MD Active MELOXICAM 7.5 MG ORAL TABS 2 qd MELOXICAM 90577543069 Active Parris Jordan MD Active ATORVASTATIN CALCIUM 40 MG ORAL TABS 1 qd ATORVASTATIN CALCIUM 16092039160 Active Parris Jordan MD Active LOPRESSOR TABS 25 mg 1 bid METOPROLOL TARTRATE TABS 13766931043 Active Parris Jordan MD Active ALPRAZOLAM 1 MG ORAL TABS 1 tid ALPRAZOLAM 36541819990 Active Parris Jordan MD Active ABILIFY 5 MG ORAL TABS 1 qd ARIPIPRAZOLE 98506513820 Active Parris Jordan MD Active TRAMADOL HCL 50 MG ORAL TABS 4x a day TRAMADOL HCL 40449954169 Active Parris Jordan MD Active OMEPRAZOLE 40 MG ORAL CPDR 1 qd OMEPRAZOLE 26701785294 Active Parris Jordan MD Active NORVASC 5 MG ORAL TABS 1 qd NORVASC 5 MG ORAL TABS 491218 AMLODIPINE BESYLATE Inactive Advance Directives Directive Description Start Date PERMISSION TO SHARE Vital Signs Date Name Value Unit Range Description blood pressure, diastolic - 8462-4 92 mm[Hg] [...] g/dL platelet count 245 10*3/mm3 Office Visit: CN Bladder spasms and Incontinence [...] urine, semiquantitative 5 specific gravity, urine 1.005 Encounters Code Encounter Date Provider Facility CPT-83527 Level 3 Est. Patient 16:52:25 CDT Parris Jordan MD [facility] CPT-60192 Level 3 Est. Patient 17:13:41 CDT Parris Jordan MD [facility] CPT-57686 Level 4 New Patient 22:47:28 CDT Parris Jordan MD [facility] Procedures Code Procedure Name Date Entry Date Standard Description CPT-66929 Postop F/U Visit 11:51:38 CDT CPT-81283 Interstim trial 17:13:41 CDT
--- OUTSIDE RECORDS SUMMARY | 2017-04-01 18:34 | XMS REPORT ---
Author Author TEQUILA MINOR [facility] eClinicalWorks Address Unknown Phone Unavailable Care Team Providers Care Bingo Cashier Name Role Phone TEQUILA MINOR CP Unavailable Allergies No Known Allergies Problems [...] oral mucosa, 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 Medications Medication Code System Code Instructions Start Date End Date Status Dosage Ritalin [facility] [address]-[address] Qureshi to sign for Winnie Three times per day Jun 28, 2015 1 tablet Results No Known Results Summary Purpose eClinicalWorks Submission
--- OUTSIDE RECORDS SUMMARY | 2017-04-01 18:34 | XMS REPORT ---
Author Author LORI SNOWDEN Organization eClinicalWorks Address Unknown Phone Unavailable Care Team Providers Care Heel Sander Rubber Name Role Phone LORI SNOWDEN CP Unavailable [...] I10 Active Problem Rheumatoid arthritis M06.9 Active Assessment Other long term care administrator (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 Active Assessment Mixed hyperlipidemia E78.2 Active Assessment Arteriosclerotic coronary artery disease I25.10 Active Assessment Hyperglycemia R73.9 Active Assessment Hypertension I10 Active Medications No Known Medications Procedures Procedure Coding System Code Date [facility] NOBLL Jul 13, 2016 GLYCATED HEMOGLOBIN TEST CPT-4 30060 Jul 13, 2016 VENIPUNCT, ROUTINE* CPT-4 22249 Jul 13, 2016 Results Name Result Date Reference Range Unit Abnormality Flag CBC ----Lymphs 28 15946010 % ----Neutrophils 66 10827840 % ----Baso (Absolute) 0.0 [id number] 0.0-0.2 x10E3/uL ----Hemoglobin 15.1 94474601 11.1-15.9 g/dL ----Eos (Absolute) 0.1 62971680 0.0-0.4 x10E3/uL ----Hematocrit 43.5 93437949 34.0-46.6 % ----Monocytes(Absolute) 0.6 36114912 0.1-0.9 x10E3/uL ----MCV 87 39400316 79-97 fL ----Lymphs (Absolute) 3.1 45696022 0.7-3.1 x10E3/uL ----MCH 30.1 13656421 26.6-33.0 pg ----Neutrophils (Absolute) 7.4 35777883 1.4-7.0 x10E3/uL H ----MCHC 34.7 63791898 31.5-35.7 g/dL ----Immature Granulocytes 0 52206577 % ----Basos 0 62716783 % ----RDW 15.5 43918310 12.3-15.4 % H ----Immature Grans (Abs) 0.0 58250328 0.0-0.1 x10E3/uL ----WBC 11.2 90909493 3.4-10.8 x10E3/uL H ----Platelets 357 94567126 150-379 x10E3/uL ----Eos 1 78274081 % ----RBC 5.02 67430621 3.77-5.28 x10E6/uL ----Monocytes 5 30136256 % CRP ----C-Reactive Protein, Quant 8.1 [id number] 0.0-4.9 mg/L H ROUTINE VENIPUNCTURE ESR/SED RATE ----Sedimentation Rate-Westergren 14 28500283 0-40 mm/hr A1C (IN HOUSE) ----Exp date May [id number] ----Lot [id number] ----Previous A1c none available [id number] ----A1C IN HOUSE 5.5 60331160 4.3 - 5.6 % LIPID PANEL ----LDL Cholesterol Calc 74 76153043 0-99 mg/dL ----VLDL Cholesterol Davon 26 86289282 5-40 mg/dL ----HDL Cholesterol 47 14499220 >39 mg/dL ----Triglycerides 130 86996020 0-149 mg/dL ----Cholesterol, Total 147 87788082 100-199 mg/dL CMP ----Creatinine, Serum 1.11 96949409 0.57-1.00 mg/dL H ----BUN 6 44196758 6-24 mg/dL ----eGFR If Africn Am 63 64059194 >59 mL/min/1.73 ----eGFR If NonAfricn Am 54 20160713 >59 mL/min/1.73 L ----Sodium, Serum 138 20160713 134-144 mmol/L ----BUN/Creatinine Ratio 5 20160713 9-23 L ----Chloride, Serum 96 20160713 97-108 mmol/L L ----Potassium, Serum 4.6 90931261 3.5-5.2 mmol/L ----Carbon Dioxide, Total 24 20160713 18-29 mmol/L ----Protein, Total, Serum 7.6 20160713 6.0-8.5 g/dL ----Calcium, Serum 9.7 64477742 8.7-10.2 mg/dL ----Globulin, Total 3.3 20160713 1.5-4.5 g/dL ----Albumin, Serum 4.3 20160713 3.5-5.5 g/dL ----Bilirubin, Total 0.7 20160713 0.0-1.2 mg/dL ----Glucose, Serum 101 20160713 65-99 mg/dL H ----A/G Ratio 1.3 20160713 1.1-2.5 ----ALT (SGPT) 24 20160713 0-32 IU/L ----Alkaline Phosphatase, S 117 20160713 39-117 IU/L ----AST (SGOT) 21 20160713 0-40 IU/L Summary Purpose eClinicalWorks Submission
--- OUTSIDE RECORDS SUMMARY | 2017-04-01 18:34 | XMS REPORT | Clinical Summary ---
Author Author Admin, JOSHUA Organization [facility] Address Unknown Phone Unavailable Allergies, Adverse [...] unspecified site INCONTINENCE, URGE 788.31 Active Parris Jordna MD Urge incontinence Dysuria 788.1 Active Aaliyah Elder Dysuria U T I-Acute Active Parris Jordan MD Urinary tract infection, site not specified Medication List Medication Instructions Start Date Stop Date Generic Name NDC Status Provider Patient Instruction RITALIN 10 MG ORAL TABS 1 tab by mputh daily METHYLPHENIDATE HCL 85968270265 Active Aaliyah Elder Active RITALIN 20 MG ORAL TABS 1 tab by mouth twice daily METHYLPHENIDATE HCL 13480114080 Active Aaliyah Elder Active NORVASC 5 MG ORAL TABS 1 qd AMLODIPINE BESYLATE 16052072346 No Longer Active Aaliyah Elder Active PROAIR HFA 108 (90 BASE) MCG/ACT INH AERS prn ALBUTEROL SULFATE 75418273871 Active Parris Jordan MD Active SYMBICORT 80-4.5 MCG/ACT INH AERO 2 puffs daily BUDESONIDE- FORMOTEROL FUMARATE 80659420380 Active Parris Jordan MD Active [facility] DAILY MULTIPLE ORAL TABS 1 qd MULTIPLE VITAMIN 87808175772 Active Parris Jordan MD Active CALCIUM 600 MG ORAL TABS 1 qd CALCIUM 46590874301 Active Parris Jordan MD Active [facility] D3 CAPS 1 qd CHOLECALCIFEROL CAPS 47571566164 Active Parris Jordan MD Active EFFEXOR XR 75 MG ORAL [id number] 1 qd VENLAFAXINE HCL 47027671118 Active Parris Jordan MD Active XELJANZ 5 MG ORAL TABS 1 bid TOFACITINIB CITRATE 15672620219 Active Parris Jordan MD Active MELOXICAM 7.5 MG ORAL TABS 2 qd MELOXICAM 37745629759 Active Parris Jordan MD Active ATORVASTATIN CALCIUM 40 MG ORAL TABS 1 qd ATORVASTATIN CALCIUM 02095064097 Active Parris Jordan MD Active LOPRESSOR TABS 25 mg 1 bid METOPROLOL TARTRATE TABS 01803391629 Active Parris Jordan MD Active ALPRAZOLAM 1 MG ORAL TABS 1 tid ALPRAZOLAM 55591919323 Active Parris Jordan MD Active ABILIFY 5 MG ORAL TABS 1 qd ARIPIPRAZOLE 14467222496 Active Parris Jordan MD Active TRAMADOL HCL 50 MG ORAL TABS 4x a day TRAMADOL HCL 71663811938 Active Parris Jordan MD Active OMEPRAZOLE 40 MG ORAL CPDR 1 qd OMEPRAZOLE 10249569320 Active Parris Jordan MD Active NORVASC 5 MG ORAL TABS 1 qd NORVASC 5 MG ORAL TABS 754461 AMLODIPINE BESYLATE Inactive Advance Directives Directive Description [...] mg/dL Chart Maintenance: Outside labs entered on [employer]heet - Hematology leukocyte count, blood 7.8 10*3/mm3 [...] negative Encounters Code Encounter Date Provider Facility CPT-99383 Level 3 Est. Patient 16:52:25 CDT Parris Jordan MD [facility] CPT-27979 Level 3 Est. Patient 17:13:41 CDT Parris Jordan MD [facility] CPT-95674 Level 4 New Patient 22:47:28 CDT Parris Jordan MD [facility] Procedures Code Procedure Name Date Entry Date Standard Description CPT-77275 Postop F/U Visit 11:51:38 CDT CPT-24113 Interstim trial 17:13:41 CDT
--- OUTSIDE RECORDS SUMMARY | 2017-04-01 18:34 | XMS REPORT ---
Author Author TATA GOOD Organization eClinicalWorks Address Unknown Phone Unavailable Care Team Providers Care Database Manager Name Role Phone TATA GOOD CP Unavailable [...] Instructions Start Date End Date Status Dosage Methylphenidate HCl [facility] [address]-06 20 mg Orally Twice a day in the morning and 1500 1 tablet on an empty stomach Methylphenidate HCl [facility] [address]-20 10 mg Orally Once a day at 1200 1 tablet Results No Known Results Summary Purpose eClinicalWorks Submission
--- OUTSIDE RECORDS SUMMARY | 2017-04-01 18:34 | XMS REPORT ---
Author Author LORI SNOWDEN Organization [facility] Address [address] [place] [address] Care Team Providers Care Element Setter Name Role Phone LORI SNOWDEN Unavailable PROBLEMS Type Condition ICD9-CM Code [id number] Code Onset Dates Condition Status SNOMED Code Assessment Hypokalemia E87.6 Jun, Active 56621575 Problem Generalized anxiety disorder F41.1 Active 99897294 Problem Dysthymic disorder F34.1 Active 81372789 Assessment Hyperglycemia R73.9 Jun, Active 65974132 Problem Asthma J45.909 Active 032901133 Problem Hypertension I10 Active 69714606 Problem Chronic pain syndrome G89.4 Active 813592415 Problem ADHD (attention deficit hyperactivity disorder), combined type F90.2 Active 25213410 Problem Rheumatoid arthritis M06.9 Active 02264282 Problem Weight gain R63.5 Active 4030868 ALLERGIES Unknown Allergies SOCIAL HISTORY No smoking Hx information available PLAN OF CARE VITAL SIGNS MEDICATIONS Medication Instructions Dosage Frequency Start Date End Date Duration Status Klor-Con M10 10 MEQ Orally Twice a day 1 tablet with food 12h 16 Jun, 2016 30 day(s) Active RESULTS No Results PROCEDURES No Known procedures IMMUNIZATIONS No Known Immunizations
--- OUTSIDE RECORDS SUMMARY | 2017-04-01 18:35 | XMS REPORT ---
Author Author ZENAIDA BROTHERS [facility] eClinicalWorks Address Unknown Phone Unavailable Care Team Providers Care Recreational Aide Name Role Phone ZENAIDA BROTHERS Unavailable Allergies, Adverse Reactions, Alerts Substance Reaction Event Type Breo Ellipta nausea Drug Allergy Solu-Medrol rash, swelling Drug Allergy Paxil Info Not Available Drug Allergy Hydrocodone-Acetaminophen hives Drug Allergy Doxycycline Hyclate local swellling Drug Allergy Codeine Sulfate hives Drug Allergy Oxybutynin 5 Ea Tablet mouth sores Non Drug Allergy Iodinated Contrast Media - Iv Dye unknown Non Drug Allergy Problems Problem Type Condition Code Onset Dates Condition Status Problem Dysthymic disorder F34.1 Active Problem ADHD (attention deficit hyperactivity disorder), combined type F90.2 Active Problem Generalized anxiety disorder F41.1 Active Assessment Generalized anxiety disorder F41.1 Active Problem Mixed hyperlipidemia E78.2 Active Problem Asthma J45.909 Active Problem Arteriosclerotic coronary artery disease I25.10 Active Problem Weight gain R63.5 Active Problem Chronic pain syndrome G89.4 Active Problem Hypertension I10 Active Problem Rheumatoid arthritis M06.9 Active Medications Medication Code System Code Instructions Start Date End Date Status Dosage Xanax [facility] [address]-24 1 MG Orally Twice a day December 11, 2014 take 1 tablet Ritalin [facility] [address]-88 10 MG Orally Twice a day Sep 13, 2015 1/2 tablet Albuterol Sulfate [facility] [address]-62 2.5 mg /3 mL (0.083 %) Jul 23, 2014 1 Each by Inhalation route every 4 hours for cough and wheeze PRN for wheezing or cough Tramadol HCl [facility] [address]-98 50 mg Orally 4 times a day PRN PAIN 1-2 tablets Advair Diskus [facility] [address]-54 100-50 MCG/DOSE Inhalation Twice a day Jul 15, 2016 1 puff Klor-Con M10 [facility] [address]-77 10 MEQ Orally Twice a day Jun 26, 2016 1 tablet with food Metoprolol Tartrate [facility] [address]-35 25 MG Orally Twice a day 1 tablet with food Zofran [facility] [address]-09 4 MG Orally 3 times a day May 29, 2016 1 tablet ProAir HFA [facility] 08175916969 108 (90 Base) MCG/ACT INHALE TWO PUFFS BY MOUTH FOUR TIMES PER DAY NEEDED FOR SHORTNESS OF BREATH Morphine Sulfate [facility] [address]-28 15 MG Orally Once a day PRN PAIN February .5 tablet Cyclobenzaprine HCl [facility] [address]-58 10 mg Orally Three times a day Jul 1 tablet as needed Trulicity [facility] [address]-49 0.75 MG/0.5ML INJECT 0.5 MLS SUBCUTANEOUSLY ONCE A WEEK Effexor XR [facility] 70664747451 150 MG TAKE ONE CAPSULE BY MOUTH TWICE DAILY WITH FOOD Zetia [facility] [address]-02 10 MG Orally Once a day 1 tablet Venlafaxine HCl ER [facility] [address]-12 150 MG Orally twice a day 1 capsule with food Meloxicam [facility] [address]-69 7.5 MG Orally twice a day as needed for pain 1 tablet Omeprazole [facility] 33702551870 40 MG Orally Once a day 1 capsule Xeljanz [facility] [address]-73 5 mg December 19, 2013 1 Tablet by Oral route 2 times per day Atorvastatin Calcium [facility] [address]-90 40 MG Orally Once a day 1 tablet Vitamin D3 [facility] [address]-55 2000 UNIT Orally Once a day 1 capsule Procedures Procedure Coding System Code Date Office Visit, Est Pt., Level 3 CPT-4 88561 Aug 14, 2016 [facility] V[facility]IT ESTABLISHED PATIENT CPT-4 G0467 Aug 14, 2016 Vital Signs Date/Time: Aug 14, 2016 Cardiac Monitoring Heart Rate 120 bpm Weight 198.4 lbs Height 67 in BMI 31.07 Index Blood Pressure Diastolic 81 mmHg Blood Pressure Systolic 105 mmHg Results No Known Results Summary Purpose eClinicalWorks Submission
--- OUTSIDE RECORDS SUMMARY | 2017-04-01 18:35 | XMS REPORT ---
Author Author KEIKO RASCON [facility] eClinicalWorks Address Unknown Phone Unavailable Care Team Providers Care Economic Consultant Name Role Phone KEIKO RASCON Unavailable Allergies No Known Allergies Problems Problem [...] Start Date End Date Status Dosage Xanax [facility] [address]-35 1 MG Orally 3 times a day PRN PANIC AND ANXIETY MUST LAST [address] Qureshi to sign for Winnie December 11, 2014 take 1 tablet Results No Known Results Summary Purpose eClinicalWorks Submission
--- OUTSIDE RECORDS SUMMARY | 2017-04-01 18:35 | XMS REPORT ---
Author Author WILMA DIEGO [facility] eClinicalWorks Address Unknown Phone Unavailable Care Team Providers Care Management Consultant Name Role Phone WILMA DIEGO Unavailable Allergies [...] Active Problem Rheumatoid arthritis M06.9 Active Assessment Dysthymic disorder F34.1 Active Assessment Generalized anxiety disorder F41.1 Active Assessment ADHD (attention deficit hyperactivity disorder), combined type F90.2 Active Medications No Known Medications Procedures Procedure Coding System Code Date Psychotherapy, patient &/family, 45 minutes, established patient CPT-4 75948 Jul 14, 2016 [facility] VISIT MENTAL HEALTH ESTAB PT CPT-4 G0470 Jul 14, 2016 Results No Known Results Summary Purpose eClinicalWorks Submission
--- OUTSIDE RECORDS SUMMARY | 2017-04-01 18:35 | XMS REPORT ---
Author Author Z[facility]IDA BROTHERS [facility] Address [address] [place] [address] Care Team Providers Care Traffic Court Referee Name Role Phone ZENAIDA BROTHERS Unavailable PROBLEMS Type Condition ICD9-CM Code [id number] Code Onset Dates Condition Status SNOMED Code Problem Generalized anxiety disorder F41.1 Active 28695621 Problem Chronic pain syndrome G89.4 Active 309720816 Problem ADHD (attention deficit hyperactivity disorder), combined type F90.2 Active 66090528 Problem Dysthymic disorder F34.1 Active 63069653 Problem Arteriosclerotic coronary artery disease I25.10 Active 95055459 Problem Mixed hyperlipidemia E78.2 Active 980941121 Problem Rheumatoid arthritis M06.9 Active 57677531 Problem Weight gain R63.5 Active 1323063 Problem Asthma J45.909 Active 836468898 Problem Hypertension I10 Active 59097226 ALLERGIES Unknown Allergies SOCIAL HISTORY No smoking Hx information available PLAN OF CARE VITAL SIGNS MEDICATIONS Medication Instructions Dosage Frequency Start Date End Date Duration Status Xanax 1 MG Orally Once a day take 1 tablet 24h Dec, Active RESULTS No Results PROCEDURES No Known procedures IMMUNIZATIONS No Known Immunizations
--- OUTSIDE RECORDS SUMMARY | 2017-04-01 18:35 | XMS REPORT ---
Author Author LORI SNOWDEN Organization [employer]ClinicalWorks Address Unknown Phone Unavailable Care Team Providers Care Animal Attendants And Trainers Name Role Phone LORI SNOWDEN CP Unavailable Allergies No Known Allergies Problems Problem Type Condition Code Onset Dates Condition Status Problem Dysthymic disorder F34.1 Active Problem ADHD (attention deficit hyperactivity disorder), combined type F90.2 Active Problem Generalized anxiety disorder F41.1 Active Assessment Asthma J45.909 Active Problem Mixed hyperlipidemia E78.2 Active Problem Asthma J45.909 Active Problem Arteriosclerotic coronary artery disease I25.10 Active Problem Weight gain R63.5 Active Problem Chronic pain syndrome G89.4 Active Problem Hypertension I10 Active Problem Rheumatoid arthritis M06.9 Active Medications Medication Code System Code Instructions Start Date End Date Status Dosage Advair Diskus [facility] [address]-18 100-50 MCG/DOSE Inhalation Twice a day Jul 15, 2016 1 puff Results No Known Results Summary Purpose eClinicalWorks Submission
--- OUTSIDE RECORDS SUMMARY | 2017-04-01 18:35 | XMS REPORT ---
Author Author TEQUILA MINOR Organization [employer]Clinical[employer] Address Unknown Phone Unavailable Care Team Providers Care Bell Hole Digger Name Role Phone TEQUILA MINOR CP Unavailable [...] Problem Dizziness and giddiness 780.4 Active Medications Medication Code System Code Instructions Start Date End Date Status Dosage Xanax [facility] [address]-76 1 MG Orally 3 times a day PRN PANIC AND ANXIETY MUST LAST [address] Qureshi to sign for Winnie December 11, 2014 take 1 tablet Results No Known Results Summary Purpose eClinicalWorks Submission
--- OUTSIDE RECORDS SUMMARY | 2017-04-01 18:35 | XMS REPORT | Clinical Summary ---
Author Author Admin, [facility] Organization [facility] Address Unknown Phone Unavailable Allergies, Adverse [...] incontinence Dysuria 788.1 Active Aaliyah Alvares Dysuria Medication List Medication Instructions Start Date Stop Date Generic Name NDC Status Provider Patient Instruction RITALIN 10 MG ORAL TABS 1 tab by mputh daily METHYLPHENIDATE HCL 00032869001 Active Aaliyah Alvares Active RITALIN 20 MG ORAL TABS 1 tab by mouth twice daily METHYLPHENIDATE HCL [facility]856977882 [facility]ASC 5 MG ORAL TABS 1 qd AMLODIPINE BESYLATE 75108845478 No Longer Active Aaliyah Alvares Active PROAIR HFA 108 (90 BASE) MCG/ACT INH AERS prn ALBUTEROL SULFATE 49749627279 Active Parris Jordan MD Active SYMBICORT 80-4.5 MCG/ACT INH AERO 2 puffs daily BUDESONIDE- FORMOTEROL FUMARATE 30582042824 Active Parris Jordan MD Active [facility] DAILY MULTIPLE ORAL TABS 1 qd MULTIPLE VITAMIN 15720657199 Active Parris Jordan MD Active CALCIUM 600 MG ORAL TABS 1 qd CALCIUM 17510232352 Active Parris Jordan MD Active [facility] D3 CAPS 1 qd CHOLECALCIFEROL CAPS 09923250058 Active Parris Jordan MD Active EFFEXOR XR 75 MG ORAL [id number] 1 qd VENLAFAXINE HCL 38313690725 Active Parris Jordan MD Active XELJANZ 5 MG ORAL TABS 1 bid TOFACITINIB CITRATE 32035414858 Active Parris Jordan MD Active MELOXICAM 7.5 MG ORAL TABS 2 qd MELOXICAM 80976088284 Active Parris Jordan MD Active ATORVASTATIN CALCIUM 40 MG ORAL TABS 1 qd ATORVASTATIN CALCIUM 91455800441 Active Parris Jordan MD Active LOPRESSOR TABS 25 mg 1 bid METOPROLOL TARTRATE TABS 69737213994 Active Parris Jordan MD Active ALPRAZOLAM 1 MG ORAL TABS 1 tid ALPRAZOLAM 68653944559 Active Parris Jordan MD Active ABILIFY 5 MG ORAL TABS 1 qd ARIPIPRAZOLE 54530178026 Active Parris Jordan MD Active TRAMADOL HCL 50 MG ORAL TABS 4x a day TRAMADOL HCL 34807742397 Active Parris Jordan MD Active OMEPRAZOLE 40 MG ORAL CPDR 1 qd OMEPRAZOLE 31623815184 Active Parris Jordan MD Active NORVASC 5 MG ORAL TABS 1 qd NORVASC 5 MG ORAL TABS 876710 AMLODIPINE BESYLATE Inactive Advance Directives Directive Description [...] 1.005 Encounters Code Encounter Date Provider Facility CPT-43170 Level 3 Est. Patient 17:13:41 CDT Parris Jordan MD [facility] CPT-32868 Level 4 New Patient 22:47:28 CDT Parris Jodran MD [facility] Procedures Code Procedure Name Date Entry Date Standard Description CPT-20191 Postop F/U Visit 11:51:38 CDT CPT-70144 Interstim trial 17:13:41 CDT
--- OUTSIDE RECORDS SUMMARY | 2017-04-01 18:35 | XMS REPORT ---
Author Author ZENAIDA BROTHERS [facility] Address [address] [place] [address] Care Team Providers Care Market President Name Role Phone ZENAIDA BROTHERS Unavailable PROBLEMS Type Condition ICD9-CM Code [id number] Code Onset Dates Condition Status SNOMED Code Problem Generalized anxiety disorder F41.1 Active 37145738 Problem Chronic pain syndrome G89.4 Active 367816425 Problem ADHD (attention deficit hyperactivity disorder), combined type F90.2 Active 43748283 Problem Dysthymic disorder F34.1 Active 83673492 Problem Arteriosclerotic coronary artery disease I25.10 Active 39948536 Problem Mixed hyperlipidemia E78.2 Active 221963659 Problem Rheumatoid arthritis M06.9 Active 16771373 Problem Weight gain R63.5 Active 4248899 Problem Asthma J45.909 Active 565178285 Problem Hypertension I10 Active 78864375 ALLERGIES Unknown Allergies SOCIAL HISTORY No smoking Hx information available PLAN OF CARE VITAL SIGNS MEDICATIONS Unknown Medications RESULTS No Results PROCEDURES No Known procedures IMMUNIZATIONS No Known Immunizations
--- OUTSIDE RECORDS SUMMARY | 2017-04-01 18:36 | XMS REPORT ---
Author Author [employer] [facility] Medical Staff Organization [facility] Address [address], [place] [address] Phone [phone] Care Team Providers Care Thread Singer Name Role Phone TREVER MORGAN PP [phone] Summary purpose TRANSITION OF CARE AUTO GENERATION Chief Complaint and Reason for Visit Admit Diagnosis 1 URGE INCONTINENCE Problem list No authorized problems tracked for [...] diagnostic tests and/or laboratory data RESULTS Chemistry 95-34-116523:10:00 Result Normal Range Units Sodium 141 134-145 mEq/l Potassium 4.0 3.5-5.1 mEq/l Chloride 105 98-107 mEq/l CO2 27.3 22-28 mEq/l Glucose H 110 70-105 mg/dl BUN L 5 7-18 mg/dl Creatinine H 1.03 0.6-1.0 mg/dl Calcium 9.0 8.4-10.2 mg/dl Osmolality L 279.2 280-300 mOsm/L Anion GAP 8.7 8-16 BUN/Creatinine Ratio L 4.9 10-20 Estimated GFR L 55 >=60 mL/min/1.7 Hematology 40-43-358042:10:00 Result Normal Range Units WBC 7.8 4.8-10.8 103/uL RBC 4.5 4.2-5.4 106/uL HGB 13.5 12.0-16.0 g/dl HCT 41.0 36.9-47.0 % MCV 90.7 81-99 FL MCH 29.9 27-31 pg MCHC L 32.9 33-37 g/dl RDW 14.8 11.5-15.5 % PLT 245 130-400 103/uL MPV 9.8 7.3-10.4 FL Neutro % 69.5 40-70 % Lymph % 22.8 20-40 % [place] % 4.9 0-10.0 % Eos % 1.9 0-7.0 % Baso % 0.4 0-2 % Neutro # 5.4 1.5-7.5 103/uL Lymph # 1.8 0.9-4.0 103/uL [place] # 0.4 0-0.8 103/uL Eos # 0.2 0-0.6 103/uL Baso # 0.0 0-0.1 103/uL Radiology Results [id number]:59:00 SACRUM COCCYX XRAY - 2V PACs Image DATE OF EXAM: 2014 RAD [id number] XRAY-2 VIEW : RADIOLOGY REPORT DATE OF SERVICE: 06/18/15 HISTORY: Placement of InterStim. PORTABLE SACRUM AND [id number] HOURS Images were obtained with the portable image intensifier. Transsacral stimulator is inserted via a left mid transsacral approach. Final films show placement of the catheter extending anterior to the mid left sacrum. IMPRESSION: Placement of transsacral stimulator as above. MD OSCAR Reese/mt06/18/2015 11:58:00 / 06/18/2015 12:21:11 cc:Dr. Panda Santo This document has been electronically Signed by: On: DATE OF EXAM: 2014 RAD [id number] XRAY-2 VIEW : RADIOLOGY REPORT DATE OF SERVICE: 06/18/15 HISTORY: Placement of InterStim. PORTABLE SACRUM AND [id number] HOURS Images were obtained with the portable image intensifier. Transsacral stimulator is inserted via a left mid transsacral approach. Final films show placement of the catheter extending anterior to the mid left sacrum. IMPRESSION: Placement of transsacral stimulator as above. MD OSCAR Reese/mt06/18/2015 11:58:00 / 06/18/2015 12:21:11 cc:Dr. Panda Santo This document has been electronically Signed by: ORLANDO AGUSTIN On: 20141:59P INTERSTIM IMPLANT Result Amended on 2015-06-18 at 13:59:03. Previous status was DE. INTERSTIM IMPLANT [id number]:10:00 Result Normal Range Units MPV 9.8 7.3-10.4 FL History of procedures Procedure Code Code Type Description Date Performed Performing Physician 04.92 ICD9-CM IMPL PERIPH NEUROSTIM LD 06-18-2015 86.96 ICD9-CM INS OTH NEUROSTIM GEN 06-18-2015 PANDA SANTO 32640 CPT-4 IMPLANT NEUROELECTRODES 06-18-2015 PANDA SANTO 97539 CPT-4 INSRT/REDO PN/GASTR STIMUL 06-18-2015 PANDA SANTO 30994 CPT-4 COMPLETE CBC W/AUTO DIFF WBC 06-18-2015 PANDA SANTO 69378 CPT-4 METABOLIC PANEL TOTAL CA 06-18-2015 PANDA SANTO 60814 CPT-4 FLUOROSCOPE EXAMINATION 06-18-2015 PANDA SANTO 42281 CPT-4 X-RAY EXAM OF TAILBONE 06-18-2015 PANDA SANTO 03803 CPT-4 DRAW BLOOD OFF VENOUS DEVICE 06-18-2015 PANDA SANTO J7120 CPT-4 RINGERS LACTATE INFUSION 06-18-2015 PANDA SANTO J1580 CPT-4 GENTAMICIN UP TO 80MG INJ 06-18-2015 PANDA SANTO J2250 CPT-4 INJ MIDAZOLAM HYDROCHLORIDE 06-18-2015 PANDA SANTO J3010 CPT-4 FENTANYL CITRATE INJECITON 06-18-2015 PANDA SANTO J2704 CPT-4 INJ, PROPOFOL, 10 MG 06-18-2015 PANDA SANTO C1883 CPT-4 ADAPT/EXT, PACING/NEURO LEAD 06-18-2015 PANDA SANTO C1767 CPT-4 GENERATOR, NEURO NON-RECHARG 06-18-2015 PANDA SANTO C1894 CPT-4 INTRO/SHEATH, NON-LASER 06-18-2015 PANDA SANTO Functional status Functional Status Finding Observation Time Hearing Prob Loc none 61-90-370550:45 Vision Problems yes 94-96-098102:45 Vision Correct Dev glasses 95-31-942498:45 Ambulation Asst Dev none 19-56-382623:45 Range of Motion full 17-17-826999:11 Muscle Strength RUE 5 ROM full resist 17-14-190675:11 Muscle Strength RLE 5 ROM full resist 83-27-712011:11 Muscle Strength LUE 5 ROM full resist 17-62-214993:11 Muscle Strength LLE 5 ROM full resist 43-22-345167:11 Transfers assist x 1 33-20-694090:11 Ambulation in room 28-04-578630:11 Balance steady 55-67-715414:11 Bathing Assistance none 05-50-890954:45 Eating Assistance none 11-84-447797:45 Dressing Assistance none :45 Toileting Assistance none 76-76-243850:45 Transfer Assistance none :45 Decline Slf Care/Mob no :45 Phys Cond Stable yes 77-52-982164:45 Nutrition normal 23-10-624302:11 Diet regular 50-86-645181:11 Oral Cavity moist and intact :11 Teeth dentures 45-17-243766:11 Dental Hygiene good 30-24-111594:11 Abdomen Appearance obese 48-55-633038:11 Abdomen soft 10-25-070943:11 Bowel Sounds present 19-84-817028:11 NG Tube no :11 Feeding Tube none 70-98-283280:11 Rosales no 37-17-586936:11 Cont Bladder Irr no :11 Ostomy no 46-37-044016:11 Stool normal 90-46-940456:11 Color normal :11 Consistency normal :11 Urination normal 47-76-798845:11 Urine Clarity clear 05-79-762502:11 Urine Color straw 90-62-249092:11 Quality sym/unlabored :11 Cough absent :11 Secretions no :11 Secretion Consist thin 78-95-322429:11 Secretion Color clear 05-55-289870:11 Breath Sounds RUL clear 42-49-644453:11 Breath Sounds RML clear 97-23-375521:11 Breath Sounds RLL clear :11 Breath Sounds SHERITA clear 69-52-342523:11 Breath Sounds LLL clear 77-56-794707:11 Airway natural 68-30-599830:11 Chest Tube no 78-04-820043:11 Oxygen no :45 C-PAP no 45-56-187236:11 BI-PAP no :11 New Infection other (specify) 72-72-846846:11 Temp >100.4 no :11 Temp <96.8 no :11 Chills with rigors no :11 HR > 90bpm no :11 Respirations > 20 no :11 Systolic <90 no :11 headache stiff neck no :11 WBC > 83428 no :11 WBC < 4000 no :11 Rapid Resp no :11 VAD Type courtney-cath 17-18-076293:20 VAD Location l chest` :20 VAD Site Info discontinued Comment: pt states her port is a grashon and does not require heparin flush. port flushed withe 10cc normal saline flush as reported by the patient for flushing. 68-02-643048:20 VAD Site Appearance WNL :20 VAD Site Color clear :20 VAD Site Patent yes :20 VAD Dressing Changed yes :20 VAD Dressing Type occlusive 43-03-789446:20 Nursing Note pt received education from [facility] rep et acknowledged understanding. dc'd to car per w/c in good condition accompanied by her family. 91-54-764666:20 Cognitive Status Finding Observation Time Oriented To Date 5 Yes 85-63-228567:[address] 5 Yes 47-15-830889:45 Name 3 Objects 3 Yes 55-25-532569:45 Name Object in Rm 2 Yes :45 Recall 3 Objects 3 Yes 20-80-336686:45 Repeats a Phrase 1 Yes :45 Follows Verbal Direc 3 Yes :45 Follows Written Dire 1 Yes 13-50-807802:45 Write a Sentance 1 Yes 52-33-519626:45 Draw an Object 1 Yes :45 Mini Mental Total 25 points 11-55-939903:45 Learning Ability comprehends well :38 Neurological no :38 Psychological no :38 Physical no :38 Hearing no :38 Nuclear Medical Tech Needed no :38 Sign Language no :38 Emotional no :38 Vision no :38 Laguage no :38 Financial no :38 Vital signs Type Value Date Respiration Rate 18breaths per minute :45 Pulse 73beats per minute :45 Oxygen Saturation 97% :45 BP Systolic 143mmHg :45 BP Diastolic 53mmHg :45 Temperature 97.5F 34-82-693047:10 Height 66inches 90-77-802267:51 Weight 242LB 33-53-482322:51 Social history Type Value Smoking Status CURRENT [...] Rev yes PNE Vac 03/2010 Flu Vac 2014 Tetanus Vac Unknown Medical Equipment interstim devise Diet Explained yes Follow up appt appt made (specify) Follow Up Appt D/T 07/05/15 1:40 pm
--- OUTSIDE RECORDS SUMMARY | 2017-04-01 18:36 | XMS REPORT ---
Author Author TEQUILA MINOR Organization [employer] Address Unknown Phone Unavailable Care Team Providers Care Machine Feeder Floorperson Name Role Phone TEQUILA MINOR CP Unavailable Allergies No Known Allergies Problems Problem Type Condition ICD-9 Code Onset Dates Condition Status Problem Unspecified [...] Start Date End Date Status Dosage Ritalin [facility] [address]-40 10 MG Orally Twice a day Dr. Qureshi to sign for Winnie Jun 28, 2015 1 tablet Results No Known Results Summary Purpose [employer] Submission
--- OUTSIDE RECORDS SUMMARY | 2017-04-01 18:36 | XMS REPORT | Clinical Summary ---
Author Author Admin, JOSHUA Organization [facility] Address Unknown Phone Unavailable Allergies, [...] 788.31 Active Parris Jordan MD Urge incontinence Medication List Medication Instructions Start Date Stop Date Generic Name [facility] Status Provider Patient Instruction PROAIR HFA 108 (90 BASE) MCG/ACT INH AERS prn ALBUTEROL SULFATE 75950330536 Active Parris Jordan MD Active SYMBICORT 80-4.5 MCG/ACT INH AERO 2 puffs daily BUDESONIDE- FORMOTEROL FUMARATE 58052729649 Active Parris Jordan MD Active CVS DAILY MULTIPLE ORAL TABS 1 qd MULTIPLE VITAMIN 08740349100 Active Parris Jordan MD Active CALCIUM 600 MG ORAL TABS 1 qd CALCIUM 56058945062 Active Parris Jordan MD Active [facility]S D3 CAPS 1 qd CHOLECALCIFEROL CAPS 93061216930 Active Parris Jordan MD Active EFFEXOR XR 75 MG ORAL [id number] 1 qd VENLAFAXINE HCL 22229118419 Active Parris Jordan MD Active XELJANZ 5 MG ORAL TABS 1 bid TOFACITINIB CITRATE 35570617159 Active Parris Jordan MD Active MELOXICAM 7.5 MG ORAL TABS 2 qd MELOXICAM 87613957184 Active Parris Jordan MD Active ATORVASTATIN CALCIUM 40 MG ORAL TABS 1 qd ATORVASTATIN CALCIUM 48799778333 Active Parris Jordan MD Active LOPRESSOR TABS 25 mg 1 bid METOPROLOL TARTRATE TABS 92367086700 Active Parris Jordan MD Active NORVASC 5 MG ORAL TABS 1 qd AMLODIPINE BESYLATE 91691457388 Active Parris Jrodan MD Active ALPRAZOLAM 1 MG ORAL TABS 1 tid ALPRAZOLAM 05376861116 Active Parris Jordan MD Active ABILIFY 5 MG ORAL TABS 1 qd ARIPIPRAZOLE 84004526927 Active Parris Jordan MD Active TRAMADOL HCL 50 MG ORAL TABS 4x a day TRAMADOL HCL 04970905163 Active Parris Jordan MD Active OMEPRAZOLE 40 MG ORAL CPDR 1 qd OMEPRAZOLE 20830804546 Active Parris Jordan MD Active Vital Signs Date Name Value Unit Range Description height E&M - 8302-2 66 [in_us] Bdy height pulse rate E&M - 8867-4 74 /min Heart rate temperature E&M 97.5 [degF] Body temperature weight E&M - 3141-9 245 [lb_av] Weight Measured Diagnostic Results Date Name Value Unit Range Description Office Visit: CN Bladder spasms and Incontinence - Chemistry RBC, urine, dipstick negative protein, total urine random negative mg/dL Office Visit: CN Bladder spasms and Incontinence - Urinalysis pH, urine, semiquantitative 5 specific gravity, urine 1.005 ketones, urine, by test strip negative bilirubin, urine negative glucose, urine, semiquantitative negative urine color yellow appearance, urine clear leukocyte esterase, urine, by dipstick negative nitrite, urine, semiquantitative negative urobilinogen, urine, semiquantitative (dipstick) negative protein, urine, semiquantitative (dipstick) negative Encounters Code Encounter Date Provider Facility CPT-88336 Level 4 New Patient 22:47:28 TALA Jordan MD [facility]
--- OUTSIDE RECORDS SUMMARY | 2017-04-01 18:36 | XMS REPORT ---
Author Author WILMA DIEGO [facility] [employer] Address Unknown Phone Unavailable Care Team Providers Care Cognos Analyst Name Role Phone WILMA DIEGO Unavailable Allergies [...] patient &/family, 45 minutes, established patient CPT-4 57468 Aug 13, 2016 [facility] VISIT MENTAL HEALTH ESTAB PT CPT-4 G0470 Aug 13, 2016 Results No Known Results Summary Purpose [employer] Submission
--- OUTSIDE RECORDS SUMMARY | 2017-04-01 18:36 | XMS REPORT ---
Author Author GLENN PEREZ [employer] Address Unknown Phone Unavailable Care Team Providers Care Core Maker Helper Name Role Phone GLENN PEREZ CP Unavailable Allergies No Known Allergies Problems Problem Type Condition Code Onset Dates Condition Status Problem Dysthymic disorder F34.1 Active Assessment Hypokalemia E87.6 Active Problem Hypertension I10 Active Problem Rheumatoid arthritis M06.9 Active Problem Asthma J45.909 Active Problem ADHD (attention deficit hyperactivity disorder), combined type F90.2 Active Problem Generalized anxiety disorder F41.1 Active Problem Weight gain R63.5 Active Problem Chronic pain syndrome G89.4 Active Medications No Known Medications Procedures Procedure Coding System Code Date VENIPUNCT, ROUTINE* CPT-4 11911 May 15, 2016 [facility] C[facility]-4 NOBLL May 15, 2016 Results No Known Results Summary Purpose [employer] Submission
--- OUTSIDE RECORDS SUMMARY | 2017-04-01 18:37 | XMS REPORT | Clinical Summary ---
Author Author Admin, MEENAE Organization [facility] Address Unknown Phone Unavailable Allergies, [...] Instructions Start Date Stop Date Generic Name [facility] Status Provider Patient Instruction PROAIR HFA 108 (90 BASE) MCG/ACT INH AERS prn ALBUTEROL SULFATE 52710852112 Active Parris Jordan MD Active SYMBICORT 80-4.5 MCG/ACT INH AERO 2 puffs daily BUDESONIDE- FORMOTEROL FUMARATE 16518612268 Active Parris Jordan MD Active CVS DAILY MULTIPLE ORAL TABS 1 qd MULTIPLE VITAMIN 69178051080 Active Parris Jordan MD Active CALCIUM 600 MG ORAL TABS 1 qd CALCIUM 28955566715 Active Parris Jordan MD Active CVS D3 CAPS 1 qd CHOLECALCIFEROL CAPS 28479887234 Active Parris Jordan MD Active EFFEXOR XR 75 MG ORAL [id number] 1 qd VENLAFAXINE HCL 61576320202 Active Parris Jordan MD Active XELJANZ 5 MG ORAL TABS 1 bid TOFACITINIB CITRATE 49536589490 Active Parris Jordan MD Active MELOXICAM 7.5 MG ORAL TABS 2 qd MELOXICAM 33745085005 Active Parris Jordan MD Active ATORVASTATIN CALCIUM 40 MG ORAL TABS 1 qd ATORVASTATIN CALCIUM 24031852396 Active Parris Jordan MD Active LOPRESSOR TABS 25 mg 1 bid METOPROLOL TARTRATE TABS 71066891660 Active Parris Jordan MD Active NORVASC 5 MG ORAL TABS 1 qd AMLODIPINE BESYLATE 17096851602 Active Parris Jordan MD Active ALPRAZOLAM 1 MG ORAL TABS 1 tid ALPRAZOLAM 33465801850 Active Parris Jordan MD Active ABILIFY 5 MG ORAL TABS 1 qd ARIPIPRAZOLE 71862713167 Active Parris Jordan MD Active TRAMADOL HCL 50 MG ORAL TABS 4x a day TRAMADOL HCL 90127862184 Active Parris Jordan MD Active OMEPRAZOLE 40 MG ORAL CPDR 1 qd OMEPRAZOLE 05405320264 Active Parris Jordan MD Active Advance Directives Directive Description Start Date PERMISSION [...] negative Encounters Code Encounter Date Provider Facility CPT-48640 Level 4 New Patient 22:47:28 TALA Jordan MD [facility]
--- OUTSIDE RECORDS SUMMARY | 2017-04-01 18:37 | XMS REPORT ---
Author Author LORI SNOWDEN Organization [employer] Address Unknown Phone Unavailable Care Team Providers Care Foam Rubber Mixer Name Role Phone LORI SNOWDEN CP Unavailable [...]
--- OUTSIDE RECORDS SUMMARY | 2017-04-01 18:37 | XMS REPORT ---
Author Author KEIKO RASCON [facility] [employer] Address Unknown Phone Unavailable Care Team Providers Care Mechanical Engineering Lecturer Name Role Phone KEIKO RASCON Unavailable Allergies, Adverse Reactions, Alerts Substance Reaction Event Type Solu-Medrol rash, swelling Drug Allergy Paxil Info [...] mention of psychotic behavior 296.33 Active Assessment Attention-deficit hyperactivity disorder, combined type F90.2 Active Assessment Agoraphobia with panic disorder F40.01 Active Problem Dysuria 788.1 Active Problem Dizziness and giddiness 780.4 Active Problem Fever, unspecified 780.60 Active Problem Unspecified hemorrhoids without mention of complication 455.6 Active Problem Cough 786.2 Active Problem Leukoplakia of oral mucosa, 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 Qureshi to sign for Winnie December 11, 2014 take 1 tablet Atorvastatin Calcium [facility] [address]-90 40 MG Orally Once a day 1 tablet Metoprolol Succinate ER [facility] [address]-80 25 MG Orally Once a day 1 tablet Ritalin [facility] [address]-[address] Qureshi to sign for Winnie Once a day at noon Jun 28, 2015 1 tablet Ambien [facility] [address]-84 5 MG Orally Once a day April 30, 2015 1 tablet at bedtime Ritalin [facility] [address]-28 20 MG Orally Twice a day in morning and 1500 Sep 13, 2015 1 tablet on an empty stomach Tramadol HCl [facility] [address]-02 50 MG Orally 4 times a day 1 tablet as needed Norvasc [facility] [address]-96 5 MG Orally Once a day 1 tablet Mobic [facility] [address]-29 7.5 mg Nov 20, 2014 take 1 tablet by Oral route 2 times per day Xeljanz [facility] [address]-80 5 mg December 19, 2013 1 Tablet by Oral route 2 times per day Effexor XR [facility] [address]-86 150 MG Orally Once a day February 22, 2015 1 capsule with food ProAir HFA [facility] [id number] 108 (90 Base) MCG/ACT INHALE TWO PUFFS BY MOUTH FOUR TIMES PER DAY NEEDED FOR SHORTNESS OF BREATH Omeprazole [facility] 58807977960 40 MG Orally Once a day 1 capsule Multivitamins [facility] [address] Orally not defined Symbicort [facility] [address]-21 80-4.5 mcg/actuation Oct 29, 2014 2 puffs by Inhalation route 2 times per day for 30 day(s) Calcium 600 + D [facility] 79259-[address]77 600-200 MG-UNIT Orally not defined VESIcare [facility] 78712843933 5 MG 1 tablet by Oral route 1 time per day Albuterol Sulfate [facility] [address]-39 2.5 mg /3 mL (0.083 %) Jul 23, 2014 1 Each by Inhalation route every 4 hours for cough and wheeze PRN for wheezing or cough Procedures Procedure Coding System Code Date Office Visit, Est Pt., Level 4 CPT-4 40003 Sep 13, 2015 [facility] VISIT ESTABLISHED PATIENT CPT-4 G0467 Sep 13, 2015 Vital Signs Date/Time: Sep 13, 2015 Cardiac Monitoring Heart Rate 85 bpm Weight 237.4 lbs Height 67 in BMI 37.18 Index Blood Pressure Diastolic 86 mmHg Blood Pressure Systolic 132 mmHg Results No Known Results Summary Purpose [employer]ClinicalWorks Submission
--- OUTSIDE RECORDS SUMMARY | 2017-04-01 18:38 | XMS REPORT ---
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 Active Assessment Renal failure N19 Active Problem Hidradenitis 705.83 Active Assessment Other hypotension I95.89 Active Problem Other malaise and fatigue 780.79 Active Problem Cervicalgia 723.1 Active Problem Abnormal weight gain 783.1 Active Problem Unspecified breast screening V76.10 Active Problem Pain in thoracic spine 724.1 Active Assessment Urinary tract infection, site not specified N39.0 Active Problem Generalized hyperhidrosis 780.8 Active Assessment Gastroenteritis K52.9 Active Assessment Nausea R11.0 Active Problem Fever, unspecified 780.60 Active Problem Cough 786.2 Active Problem Agoraphobia with panic disorder 300.21 Active Problem Dysuria 788.1 Active Problem Major depressive disorder, recurrent episode, severe, without mention of psychotic behavior 296.33 Active Problem Dizziness and giddiness 780.4 Active Medications Medication Code System Code Instructions Start Date End Date Status Dosage Effexor XR [facility] [address]-94 75 MG Orally twice a day February 22, 2015 1 capsule with food Ritalin [facility] [address]-47 10 MG Orally Twice a day Dr. Qureshi to sign for Winnie Jun 28, 2015 1 tablet Xanax [facility] [address]-53 1 MG Orally 3 times a day PRN PANIC AND ANXIETY MUST LAST [address] Qureshi to sign for Winnie December 11, 2014 take 1 tablet VESIcare [facility] 08989514369 5 MG 1 tablet by Oral route 1 time per day Atorvastatin Calcium [facility] [address]-47 40 MG Orally Once a day 1 tablet Omeprazole [facility] 87111160335 40 MG Orally Once a day 1 capsule Tramadol HCl [facility] [address]-80 50 MG Orally 4 times a day 1 tablet as needed Symbicort [facility] [address]-36 80-4.5 mcg/actuation Oct 29, 2014 2 puffs by Inhalation route 2 times per day for 30 day(s) Mobic [facility] [address]-00 7.5 mg Nov 20, 2014 take 1 tablet by Oral route 2 times per day Albuterol Sulfate [facility] [address]-72 2.5 mg /3 mL (0.083 %) Jul 23, 2014 1 Each by Inhalation route every 4 hours for cough and wheeze PRN for wheezing or cough Xeljanz [facility] [address]-78 5 mg December 19, 2013 1 Tablet by Oral route 2 times per day Abilify [facility] [address]-76 5 MG Orally Once a day 1 tablet Ambien [facility] [address]-61 5 MG Orally Once a day April 30, 2015 1 tablet at bedtime Multivitamins [facility] [address] Orally not defined Zofran ODT [facility] [address]-50 4 MG Orally every 8 hrs Jul 18, 2015 1 tablet on the tongue and allow to dissolve Calcium 600 + D [facility] [address]64-97914 600-200 MG-UNIT Orally not defined Bactrim DS [facility] [address]-53 800-160 MG Orally 2 times a day Jul 18, 2015 Jul 25, 2015 1 tablet Procedures Procedure Coding System Code Date Office Visit, Est Pt., Level 3 CPT-4 96145 Jul 18, 2015 [facility] VISIT ESTABLISHED PATIENT CPT-4 G0467 Jul 18, 2015 Vital Signs Date/Time: Jul 18, 2015 Temperature 98.8 F Weight 237 lbs Height 67 in BMI 37.12 Index Blood Pressure Diastolic 68 mmHg Blood Pressure Systolic 104 mmHg Cardiac Monitoring Heart Rate 88 bpm Results No Known Results Summary Purpose eClinicalWorks Submission
--- OUTSIDE RECORDS SUMMARY | 2017-04-01 18:38 | XMS REPORT ---
Author Author WILMA DIEGO [facility] Address [address] [place] [address] Care Team Providers Care Surety Bond Agent Name Role Phone WILMA DIEGO Unavailable PROBLEMS Type Condition ICD9-CM Code [id number] Code Onset Dates Condition Status SNOMED Code Problem Generalized anxiety disorder F41.1 Active 11361373 Problem Chronic pain syndrome G89.4 Active 651261734 Problem ADHD (attention deficit hyperactivity disorder), combined type F90.2 Active 39970250 Assessment ADHD (attention deficit hyperactivity disorder), combined type F90.2 Sep, Active 297449119 Problem Dysthymic disorder F34.1 Active 86034558 Problem Arteriosclerotic coronary artery disease I25.10 Active 22968776 Problem Mixed hyperlipidemia E78.2 Active 159726604 Problem Rheumatoid arthritis M06.9 Active 87763214 Problem Weight gain R63.5 Active 1578773 Problem Asthma J45.909 Active 915473503 Problem Hypertension I10 Active 22729486 ALLERGIES Unknown Allergies SOCIAL HISTORY No smoking Hx information available PLAN OF CARE VITAL SIGNS MEDICATIONS Unknown Medications RESULTS No Results PROCEDURES Procedure Date Ordered Related Diagnosis Body Site [facility] VISIT MENTAL HEALTH ESTAB PT Sep 14, 2016 Psychotherapy, patient &/family, 30 minutes, established patient Sep 14, 2016 IMMUNIZATIONS No Known Immunizations
--- OUTSIDE RECORDS SUMMARY | 2017-04-01 18:38 | XMS REPORT ---
Author Author LORI SNOWDEN Organization [employer] Address Unknown Phone Unavailable Care Team Providers Care Plant Packer Name Role Phone LORI SNOWDEN CP Unavailable [...] Problem Generalized anxiety disorder F41.1 Active Assessment Breast cancer screening Z12.39 Active Problem Dysthymic disorder F34.1 Active Problem ADHD (attention deficit hyperactivity disorder), combined type F90.2 Active Problem Hidradenitis 705.83 Active Problem Unspecified breast screening V76.10 Active Problem Other malaise and fatigue 780.79 Active Problem Screening for malignant neoplasm of the cervix V76.2 Active Problem Generalized hyperhidrosis 780.8 Active Problem Major depressive disorder, recurrent episode, severe, without mention of psychotic behavior 296.33 Active Assessment Hypotension, unspecified I95.9 Active Assessment Urinary tract infection, site not specified N39.0 Active Problem Dysuria 788.1 Active Problem Dizziness and giddiness 780.4 Active Problem Fever, unspecified 780.60 Active Problem Unspecified hemorrhoids without mention of complication 455.6 Active Problem Cough 786.2 Active Problem Leukoplakia of oral mucosa, 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 Medications Medication Code System Code Instructions Start Date End Date Status Dosage VESIcare [facility] 09048290909 5 MG 1 tablet by Oral route 1 time per day Multivitamins [facility] 5[address] Orally not defined Tramadol HCl [facility] [address]-67 50 MG Orally 4 times a day 1 tablet as needed Abilify [facility] [address]-03 5 MG Orally Once a day [address] [facility] 64284714189 40 MG Orally Once a day 1 capsule Effexor XR [facility] [address]-75 75 MG Orally twice a day February 22, 2015 1 capsule with food Atorvastatin Calcium [facility] [address]-31 40 MG Orally Once a day 1 tablet ProAir HFA [facility] [address]-11 90 mcg/actuation January 01, 2015 2 puffs by Inhalation route 4 times per day for 30 day(s) PRN shortness of breath Ritalin [facility] [address]-69 10 MG Orally Twice a day Dr. Qureshi to sign for Winnie Jun 28, [address] [facility] [address]-39 7.5 mg Nov 20, 2014 take 1 tablet by Oral route 2 times per day Albuterol Sulfate [facility] [address]-10 2.5 mg /3 mL (0.083 %) Jul 23, 2014 1 Each by Inhalation route every 4 hours for cough and wheeze PRN for wheezing or cough Xanax [facility] [address]-03 1 MG Orally 3 times a day PRN PANIC AND ANXIETY MUST LAST [address] Qureshi to sign for Winnie December 11, 2014 take [address] [facility] [address]-68 5 MG Orally Once a day April 30, 2015 1 tablet at bedtime Zofran ODT [facility] [address]-90 4 MG Orally every 8 hrs Jul 18, 2015 1 tablet on the tongue and allow to dissolve Xeljanz [facility] [address]-95 5 mg December 19, 2013 1 Tablet by Oral route 2 times per day Calcium 600 + D [facility] 23131-03917 600-200 MG-UNIT Orally not defined Symbicort [facility] [address]-42 80-4.5 mcg/actuation Oct 29, 2014 2 puffs by Inhalation route 2 times per day for 30 day(s) Procedures Procedure Coding System Code Date No Charge CPT-4 59448 Aug 05, 2015 ON LICENSE OF [facility] VISIT ESTABLISHED PATIENT CPT-4 G0467 Aug 05, 2015 URINALYSIS, AUTO, W/O SCOPE CPT-4 24848 Aug 05, 2015 Office Visit, Est Pt., Level 3 CPT-4 06727 Aug 05, 2015 Vital Signs Date/Time: Aug 05, 2015 Temperature 98.8 F Weight 227.4 lbs Height 67 in BMI 35.61 Index Blood Pressure Diastolic 90 mmHg Blood Pressure Systolic 148 mmHg Cardiac Monitoring Heart Rate 84 bpm Results Name Result Date Reference Range Unit Abnormality Flag UA LONG DIP (IN HOUSE) AMERITOX Summary Purpose [employer] Submission
--- OUTSIDE RECORDS SUMMARY | 2017-04-01 18:38 | XMS REPORT ---
Author Author LYNDSAY RASHEED [facility] [employer] Address Unknown Phone Unavailable Care Team Providers Care Environmental Sustainability Manager Name Role Phone LYNDSAY RASHEED CP Unavailable Allergies No Known Allergies Problems [...] Instructions Start Date End Date Status Dosage Bactrim DS [facility] [address]-80 800-160 MG Orally Once a day Jul 15, 2015 Jul 18, 2015 1 tablet Results No Known Results Summary Purpose [employer] Submission
--- OUTSIDE RECORDS SUMMARY | 2017-04-01 18:39 | XMS REPORT ---
Author Author GLENN PEREZ [employer] Address Unknown Phone Unavailable Care Team Providers Care Ballistician Name Role Phone GLENN PEREZ Unavailable Allergies No Known Allergies Problems Problem [...] Instructions Start Date End Date Status Dosage Multi Vitamin Daily [facility] 143[address] Orally Once a day 1 tablet Calcium [facility] [address]-60 600 MG Orally Once a day 1 tablet with meals Venlafaxine HCl ER [facility] [address]-41 150 MG Orally twice a day 1 capsule with food Vitamin D3 [facility] [address]-82 2000 UNIT Orally Once a day 1 capsule Zetia [facility] [address]-73 10 MG Orally Once a day 1 tablet Morphine Sulfate [facility] [address]-39 15 MG Orally Once a day PRN PAIN February .5 tablet Atorvastatin Calcium [facility] [address]-41 40 MG Orally Once a day 1 tablet Breo Ellipta [facility] 52110164961 100-25 MCG/INH Inhalation Once a day 1 puff Nitrofurantoin [facility] [address]-88 100 MG Orally not defined Fish Oil [facility] [address]-47 1200 MG Orally Once a day 7 capsule Tramadol HCl [facility] [address]-57 50 mg Orally 4 times a day PRN PAIN 1-2 tablets Meloxicam [facility] [address]-71 7.5 MG Orally twice a day as needed for pain 1 tablet Methylphenidate HCl [facility] [address]-63 10 mg Orally Once a day at 1200 1 tablet Omeprazole [facility] 44223168536 40 MG Orally Once a day 1 capsule ProAir HFA [facility] 22374603237 108 (90 Base) MCG/ACT INHALE TWO PUFFS BY MOUTH FOUR TIMES PER DAY NEEDED FOR SHORTNESS OF BREATH Methylphenidate HCl [facility] [address]-26 20 mg Orally Twice a day in the morning and 1500 1 tablet on an empty stomach Xanax [facility] [address]-89 1 MG Orally Three times a day as needed December 11, 2014 take 1 tablet Albuterol Sulfate [facility] [address]-40 2.5 mg /3 mL (0.083 %) Jul 23, 2014 1 Each by Inhalation route every 4 hours for cough and wheeze PRN for wheezing or cough Metoprolol Tartrate [facility] [address]-39 25 MG Orally Twice a day 1 tablet with food Xeljanz [facility] [address]-75 5 mg December 19, 2013 1 Tablet by Oral route 2 times per day Trulicity [facility] [address]-51 0.75 MG/0.5ML Subcutaneous once weekly March 0.75 ml Results No Known Results Summary Purpose [employer]Works Submission
--- OUTSIDE RECORDS SUMMARY | 2017-04-01 18:39 | XMS REPORT ---
Author Author LORI SNOWDEN Organization [employer] Address Unknown Phone Unavailable Care Team Providers Care Cartridge Loading Operator Name Role Phone LORI SNOWDEN CP [...] Date End Date Status Dosage Effexor XR [facility] [address]-73 150 MG Orally Once a day February 22, 2015 1 capsule with food Results No Known Results Summary Purpose [employer] Submission
--- OUTSIDE RECORDS SUMMARY | 2017-04-01 18:39 | XMS REPORT | Clinical Summary ---
Author Author Admin, MEENAE Organization [facility] Address Unknown Phone Unavailable Allergies, Adverse Reactions, [...] TRULICITY 0.75 MG/0.5ML SC SOPN .qwk DULAGLUTIDE 94823153955 Active Parris Jordan MD Active ZETIA 10 MG ORAL TABS Take one by mouth daily EZETIMIBE 42351436222 Active Parris Jordan MD Active ABILIFY 5 MG ORAL TABS 1 qd ARIPIPRAZOLE 24431719345 No Longer Active Parris Jordan MD Active MELOXICAM 7.5 MG ORAL TABS 2 qd MELOXICAM 72690475968 No Longer Active Parris Jordan MD Active SYMBICORT 80-4.5 MCG/ACT INH AERO 2 puffs daily BUDESONIDE-FORMOTEROL FUMARATE 26427362007 No Longer Active Parris Jordan MD Active RITALIN 10 MG ORAL TABS 1 tab by mputh daily METHYLPHENIDATE HCL 91264370987 Active Aaliyah Elder Active RITALIN 20 MG ORAL TABS 1 tab by mouth twice daily METHYLPHENIDATE HCL 80505619171 Active Aaliyah Elder Active NORVASC 5 MG ORAL TABS 1 qd AMLODIPINE BESYLATE 92648218390 No Longer Active Aaliyah Alvares Active PROAIR HFA 108 (90 BASE) MCG/ACT INH AERS prn ALBUTEROL SULFATE 60156459339 Active Parris Jordan MD Active [facility] DAILY MULTIPLE ORAL TABS 1 qd MULTIPLE VITAMIN 50689527063 Active Parris Jordan MD Active CALCIUM 600 MG ORAL TABS 1 qd CALCIUM 23710915085 Active Parris Jordan MD Active [facility] D3 CAPS 1 qd CHOLECALCIFEROL CAPS 43163263746 Active Parris Jordan MD Active EFFEXOR XR 75 MG ORAL BC80D-DAP 1 qd VENLAFAXINE HCL 77592233055 Active Parris Jordan MD Active XELJANZ 5 MG ORAL TABS 1 bid TOFACITINIB CITRATE 42687169656 Active Parris Jordan MD Active ATORVASTATIN CALCIUM 40 MG ORAL TABS 1 qd ATORVASTATIN CALCIUM 59199536542 Active Parris Jordan MD Active LOPRESSOR TABS 25 mg 1 bid METOPROLOL TARTRATE TABS 01155643569 Active Parris Jordan MD Active ALPRAZOLAM 1 MG ORAL TABS 1 tid ALPRAZOLAM 73348834781 Active Parris Jordan MD Active TRAMADOL HCL 50 MG ORAL TABS 4x a day TRAMADOL HCL 51629922791 Active Parris Jordan MD Active OMEPRAZOLE 40 MG ORAL CPDR 1 qd OMEPRAZOLE 47067779586 Active J Panda Jordan MD Active NORVASC 5 MG ORAL TABS 1 qd NORVASC 5 MG ORAL TABS 915419 AMLODIPINE BESYLATE Inactive SYMBICORT 80-4.5 MCG/ACT INH AERO 2 puffs daily SYMBICORT 80-4.5 MCG/ACT INH AERO BUDESONIDE-FORMOTEROL FUMARATE Inactive MELOXICAM 7.5 MG ORAL TABS 2 qd MELOXICAM 7.5 MG ORAL TABS 367618 MELOXICAM Inactive ABILIFY 5 MG ORAL TABS 1 qd ABILIFY 5 MG ORAL TABS 453182 ARIPIPRAZOLE Inactive Advance Directives Directive Description Start [...] Description Chart Maintenance: Outside labs entered on [facility] - Chemistry sodium, serum 141 mmol/L potassium, serum 4.0 mmol/L blood glucose 110 mg/dL creatinine, serum 1.03 mg/dL Chart Maintenance: Outside labs entered on [facility] - Hematology leukocyte count, blood 7.8 10*3/mm3 [...] negative Encounters Code Encounter Date Provider Facility CPT-85228 Level 3 Est. Patient 16:17:17 CDT Parris Jordan MD [facility] CPT-74226 Level 3 Est. Patient 16:06:50 CDT Parris Jordan MD [facility] CPT-54145 Level 3 Est. Patient 16:52:25 CDT Parris Jordan MD [facility] CPT-58654 Level 3 Est. Patient 17:13:41 CDT Parris Jordan MD [facility] CPT-40953 Level 4 New Patient 22:47:28 CDT Parris Jordan MD [facility] Procedures Code Procedure Name Date Entry Date Standard Description CPT-09666 Bladder Scan 16:17:18 CDT CPT-28417 Bladder Scan 16:06:50 CDT CPT-66731 Postop F/U Visit 11:51:38 CDT CPT-93245 Interstim trial 17:13:41 CDT
--- OUTSIDE RECORDS SUMMARY | 2017-04-01 18:40 | XMS REPORT ---
Author Author FLORENTINO TATA Organization [facility] Address [address] [place] [address] Care Team Providers Care Cable Supervisor Name Role Phone TATA GOOD Unavailable PROBLEMS Type Condition ICD9-CM Code [id number] Code Onset Dates Condition Status SNOMED Code Assessment Generalized anxiety disorder F41.1 Jun, Active 51281151 Problem Generalized anxiety disorder F41.1 Active 54033538 Problem Dysthymic disorder F34.1 Active 90352046 Problem Asthma J45.909 Active 128239081 Problem Hypertension I10 Active 24967440 Problem Chronic pain syndrome G89.4 Active 731466726 Problem ADHD (attention deficit hyperactivity disorder), combined type F90.2 Active 11118493 Problem Rheumatoid arthritis M06.9 Active 58636238 Problem Weight gain R63.5 Active 7837772 ALLERGIES Substance Reaction Event Type Date Status Solu-Medrol rash, swelling Drug Allergy Jun, Active Paxil Unknown Drug Allergy Jun, Active Hydrocodone-Acetaminophen hives Drug Allergy Jun, Active Doxycycline Hyclate local swellling Drug Allergy Jun, Active Codeine Sulfate hives Drug Allergy Jun, Active Oxybutynin 5 Ea Tablet mouth sores Non Drug Allergy Jun, Active Iodinated Contrast Media - Iv Dye unknown Non Drug Allergy Jun, Active SOCIAL HISTORY No smoking Hx information available PLAN OF CARE VITAL SIGNS Height 67 in 2016-06-16 Weight 206.7 lbs 2016-06-16 Heart Rate 112 bpm 2016-06-16 Respiratory Rate 22 2016-06-16 BMI 32.37 kg/m2 2016-06-16 Blood pressure systolic 131 mmHg 2016-06-16 Blood pressure diastolic 87 mmHg 2016-06-16 MEDICATIONS Medication Instructions Dosage Frequency Start Date End Date Duration Status Atorvastatin Calcium 40 MG Orally Once a day 1 tablet 24h Active Vitamin D3 2000 UNIT Orally Once a day 1 capsule 24h Active Meloxicam 7.5 MG Orally twice a day as needed for pain 1 tablet Active Xeljanz 5 mg 1 Tablet by Oral route 2 times per day Dec, Active Tramadol HCl 50 mg Orally 4 times a day PRN PAIN 1-2 tablets Active Albuterol Sulfate 2.5 mg /3 mL (0.083 %) 1 Each by Inhalation route every 4 hours for cough and wheeze PRN for wheezing or cough Jul, Active Zetia 10 MG Orally Once a day 1 tablet 24h Active Zofran 4 MG Orally 3 times a day 1 tablet 8h May, 07 days Active Ritalin 20 MG Orally daily 1 tablet every am and 1/2 tab at noon, 1/2 tab at 1500. 24h Sep, 30 days Active Morphine Sulfate 15 MG Orally Once a day PRN PAIN .5 tablet February, Active Ibuprofen 800 MG Orally Three times a day 1 tablet 8h Active Nitrofurantoin 100 MG Active Metoprolol Tartrate 25 MG Orally Twice a day 1 tablet with food 12h Active Venlafaxine HCl ER 150 MG Orally twice a day 1 capsule with food 12h Active Breo Ellipta 100-25 MCG/INH Inhalation Once a day 1 puff 24h 30 Active ProAir HFA 108 (90 Base) MCG/ACT INHALE TWO PUFFS BY MOUTH FOUR TIMES PER DAY NEEDED FOR SHORTNESS OF BREATH 25 Active Flexeril Active Omeprazole 40 MG Orally Once a day 1 capsule 24h 90 Active Xanax 1 MG Orally Three times a day as needed take 1 tablet Dec, Active RESULTS No Results PROCEDURES Procedure Date Ordered Related Diagnosis Body Site [facility] VISIT ESTABLISHED PATIENT Jun 16, 2016 Office Visit, Est Pt., Level 3 Jun 16, 2016 IMMUNIZATIONS No Known Immunizations
--- OUTSIDE RECORDS SUMMARY | 2017-04-01 18:40 | XMS REPORT ---
Author Author LORI SNOWDEN Organization [facility] Address [address] [place] [address] Care Team Providers Care Utility Worker Driver Name Role Phone LORI SNOWDEN Unavailable PROBLEMS Type Condition ICD9-CM Code [id number] Code Onset Dates Condition Status SNOMED Code Assessment Hypokalemia E87.6 May, Active 31522559 Problem Generalized anxiety disorder F41.1 Active 64072611 Problem Dysthymic disorder F34.1 Active 51116326 Assessment Hyperinsulinemia E16.1 May, Active 17832306 Assessment Vertigo R42 May, Active 806883067 Problem Asthma J45.909 Active 364275181 Problem Hypertension I10 Active 95787630 Problem Chronic pain syndrome G89.4 Active 729299057 Problem ADHD (attention deficit hyperactivity disorder), combined type F90.2 Active 90311244 Problem Rheumatoid arthritis M06.9 Active 61441226 Problem Weight gain R63.5 Active 9142156 ALLERGIES Substance Reaction Event Type Date Status Solu-Medrol rash, swelling Drug Allergy May, Active Paxil Unknown Drug Allergy May, Active Hydrocodone-Acetaminophen hives Drug Allergy May, Active Doxycycline Hyclate local swellling Drug Allergy May, Active Codeine Sulfate hives Drug Allergy May, Active Iodinated Contrast Media - Iv Dye unknown Non Drug Allergy May, Active Oxybutynin 5 Ea Tablet mouth sores Non Drug Allergy May, Active SOCIAL HISTORY No smoking Hx information available PLAN OF CARE VITAL SIGNS Height 67 in 2016-06-09 Weight 206.9 lbs 2016-06-09 Heart Rate 92 bpm 2016-06-09 Respiratory Rate 20 2016-06-09 BMI 32.40 kg/m2 2016-06-09 Blood pressure systolic 142 mmHg 2016-06-09 Blood pressure diastolic 86 mmHg 2016-06-09 MEDICATIONS Medication Instructions Dosage Frequency Start Date End Date Duration Status Atorvastatin Calcium 40 MG Orally Once a day 1 tablet 24h Active Zofran 4 MG Orally 3 times a day 1 tablet 8h May, 07 days Active Methylphenidate HCl 10 mg Orally Once a day at 1200 1 tablet Active Nitrofurantoin 100 MG Active Methylphenidate HCl 20 mg Orally Twice a day in the morning and 1500 1 tablet on an empty stomach Active Xeljanz 5 mg 1 Tablet by Oral route 2 times per day Dec, Active Omeprazole 40 MG Orally Once a day 1 capsule 24h 90 Active ProAir HFA 108 (90 Base) MCG/ACT INHALE TWO PUFFS BY MOUTH FOUR TIMES PER DAY NEEDED FOR SHORTNESS OF BREATH 25 Active Xanax 1 MG Orally Three times a day as needed take 1 tablet Dec, Active Venlafaxine HCl ER 150 MG Orally twice a day 1 capsule with food 12h Active Vitamin D3 2000 UNIT Orally Once a day 1 capsule 24h Active Morphine Sulfate 15 MG Orally Once a day PRN PAIN .5 tablet February, Active Tramadol HCl 50 mg Orally 4 times a day PRN PAIN 1-2 tablets Active Meloxicam 7.5 MG Orally twice a day as needed for pain 1 tablet Active Breo Ellipta 100-25 MCG/INH Inhalation Once a day 1 puff 24h 30 Active Metoprolol Tartrate 25 MG Orally Twice a day 1 tablet with food 12h Active Albuterol Sulfate 2.5 mg /3 mL (0.083 %) 1 Each by Inhalation route every 4 hours for cough and wheeze PRN for wheezing or cough Jul, Active Zetia 10 MG Orally Once a day 1 tablet 24h Active RESULTS No Results PROCEDURES Procedure Date Ordered Related Diagnosis Body Site [facility] VISIT ESTABLISHED PATIENT Jun 09, 2016 Office Visit, Est Pt., Level 3 Jun 09, 2016 IMMUNIZATIONS No Known Immunizations
--- OUTSIDE RECORDS SUMMARY | 2017-04-01 18:40 | XMS REPORT ---
Author Author TATA GOOD Organization [employer] Address Unknown Phone Unavailable Care Team Providers Care Boating Safety Officer Name Role Phone TATA GOOD CP Unavailable [...] Start Date End Date Status Dosage Xanax [facility] [address]-81 1 MG Orally Three times a day as needed December 11, 2014 take 1 tablet Ritalin [facility] [address]-82 20 mg Orally Twice a day in morning and 1500 Sep 13, 2015 1 tablet on an empty stomach Ritalin [facility] [address]-43 10 mg Orally Once a day at noon Jun 28, 2015 1 tablet Results No Known Results Summary Purpose eClinicalWorks Submission
--- OUTSIDE RECORDS SUMMARY | 2017-04-01 18:40 | XMS REPORT ---
Author Author LORI SNOWDEN Organization [facility] Address [address] [place] [address] Care Team Providers Care Wet Mixer Name Role Phone LORI SNOWDEN Unavailable PROBLEMS Type Condition ICD9-CM Code [id number] Code Onset Dates Condition Status SNOMED Code Assessment Abnormal kidney function N28.9 Jun, Active 581512580 Problem Generalized anxiety disorder F41.1 Active 53357543 Problem Dysthymic disorder F34.1 Active 88509878 Problem Asthma J45.909 Active 178329492 Problem Hypertension I10 Active 11374200 Problem Chronic pain syndrome G89.4 Active 425938985 Problem ADHD (attention deficit hyperactivity disorder), combined type F90.2 Active 96066154 Problem Rheumatoid arthritis M06.9 Active 33440780 Problem Weight gain R63.5 Active 2532590 ALLERGIES Unknown Allergies SOCIAL HISTORY No smoking Hx information available PLAN OF CARE VITAL SIGNS MEDICATIONS Unknown Medications RESULTS Name Result Date Reference Range [facility] 2016-06-23 Glucose, Serum 136 65-99 BUN 9 6-24 Creatinine, Serum 1.28 0.57-1.00 eGFR If NonAfricn Am 46 >59 eGFR If Africn Am 53 >59 BUN/Creatinine Ratio 7 9-23 Sodium, Serum 141 134-144 Potassium, Serum 4.3 3.5-5.2 Chloride, Serum 93 97-108 Carbon Dioxide, Total 24 18-29 Calcium, Serum 10.5 8.7-10.2 Protein, Total, Serum 8.1 6.0-8.5 Albumin, Serum 4.7 3.5-5.5 Globulin, Total 3.4 1.5-4.5 A/G Ratio 1.4 1.1-2.5 Bilirubin, Total 0.9 0.0-1.2 Alkaline Phosphatase, S 125 39-117 AST (SGOT) 23 0-40 ALT (SGPT) 21 0-32 PROCEDURES Procedure Date Ordered Related Diagnosis Body Site LAB NOT BILLED BY [facility] Jun 23, 2016 VENIPUNCT, ROUTINE* Jun 23, 2016 IMMUNIZATIONS No Known Immunizations
--- OUTSIDE RECORDS SUMMARY | 2017-04-01 18:40 | XMS REPORT ---
Author Author LORI SNOWDEN Organization [employer] Address Unknown Phone Unavailable Care Team Providers Care Business Analyst Manager Name Role Phone LORI SNOWDEN CP Unavailable [...] Type Condition Code Onset Dates Condition Status Assessment Hyperinsulinemia E16.1 Active Problem Dysthymic disorder F34.1 Active Assessment Right arm pain M79.601 Active Problem Hypertension I10 Active Problem Rheumatoid arthritis M06.9 Active Problem Asthma J45.909 Active Problem ADHD (attention deficit hyperactivity disorder), combined type F90.2 Active Problem Generalized anxiety disorder F41.1 Active Problem Weight gain R63.5 Active Problem Chronic pain syndrome G89.4 Active Medications Medication Code System Code Instructions Start Date End Date Status Dosage Cyclobenzaprine HCl [facility] [address]-45 10 mg Orally Once a day at bedtime April 14, 2016 1 tablet Fish Oil [facility] [address]-65 1200 MG Orally Once a day 7 capsule Zetia [facility] [address]-92 10 MG Orally Once a day 1 tablet Omeprazole [facility] 61102581616 40 MG Orally Once a day 1 capsule Xeljanz [facility] [address]-23 5 mg December 19, 2013 1 Tablet by Oral route 2 times per day Xanax [facility] [address]-63 1 MG Orally Three times a day as needed December 11, 2014 take 1 tablet Albuterol Sulfate [facility] [address]-70 2.5 mg /3 mL (0.083 %) Jul 23, 2014 1 Each by Inhalation route every 4 hours for cough and wheeze PRN for wheezing or cough Multi Vitamin Daily [facility] [address] Orally Once a day 1 tablet Atorvastatin Calcium [facility] [address]-99 40 MG Orally Once a day 1 tablet Ritalin [facility] [address]-17 10 mg Orally Once a day at noon Jun 28, 2015 1 tablet Ritalin [facility] [address]-44 20 mg Orally Twice a day in morning and 1500 Sep 13, 2015 1 tablet on an empty stomach Ibuprofen [facility] [address]-55 600 MG Orally Three times a day April 14, 2016 May 14, 2016 1 tablet Breo Ellipta [facility] [address]-41 100-25 MCG/INH Inhalation Once a day FebruaryMay 13, 2016 1 puff Calcium [facility] [address]-96 600 MG Orally Once a day 1 tablet with meals Vitamin D3 [facility] [address]-69 2000 UNIT Orally Once a day 1 capsule Morphine Sulfate [facility] [address]-88 15 MG Orally PRN February 11, 2016 .5 tablet Trulicity [facility] [address]-31 0.75 MG/0.5ML Subcutaneous once weekly March 0.5 ml Tramadol HCl [facility] [address]-70 50 mg Orally 4 times a day 2 tablets Effexor XR [facility] [address]-35 150 MG Orally Twice a day February 22, 2015 1 capsule with food ProAir HFA [facility] 73300810748 108 (90 Base) MCG/ACT INHALE TWO PUFFS BY MOUTH FOUR TIMES PER DAY NEEDED FOR SHORTNESS OF BREATH Metoprolol Succinate ER [facility] [address]-03 25 MG Orally Once a day 1 tablet Procedures Procedure Coding System Code Date Office Visit, Est Pt., Level 3 CPT-4 03514 April 14, 2016 [facility] VISIT ESTABLISHED PATIENT CPT-4 G0467 April 14, 2016 Vital Signs Date/Time: April 14, 2016 Cardiac Monitoring Heart Rate 80 bpm Weight 222.5 lbs Height 67 in BMI 34.84 Index Blood Pressure Diastolic 84 mmHg Blood Pressure Systolic 128 mmHg Results No Known Results Summary Purpose [employer] Submission
--- OUTSIDE RECORDS SUMMARY | 2017-04-01 18:41 | XMS REPORT | Clinical Summary ---
Author Author Admin, QIE Organization [facility] Address Unknown Phone Unavailable Allergies, Adverse Reactions, [...] Take one by mouth daily NITROFURANTOIN MACROCRYSTAL 37364276781 Active Saima Blum Active TRULICITY 0.75 MG/0.5ML SC SOPN .qwk DULAGLUTIDE 86853872788 Active Parris Jordan MD Active ZETIA 10 MG ORAL TABS Take one by mouth daily EZETIMIBE 08773254821 Active Parris Jordan MD Active ABILIFY 5 MG ORAL TABS 1 qd ARIPIPRAZOLE 84377191793 No Longer Active Parris Jordan MD Active MELOXICAM 7.5 MG ORAL TABS 2 qd MELOXICAM 70697646513 No Longer Active Parris Jordan MD Active SYMBICORT 80-4.5 MCG/ACT INH AERO 2 puffs daily BUDESONIDE-FORMOTEROL FUMARATE 32056866420 No Longer Active Parris Jordan MD Active RITALIN 10 MG ORAL TABS 1 tab by mputh daily METHYLPHENIDATE HCL 61801212591 Active Aaliyah Elder Active RITALIN 20 MG ORAL TABS 1 tab by mouth twice daily METHYLPHENIDATE HCL 42724069640 Active Aaliyah Elder Active NORVASC 5 MG ORAL TABS 1 qd AMLODIPINE BESYLATE 82190573605 No Longer Active Aaliyah Alvares Active PROAIR HFA 108 (90 BASE) MCG/ACT INH AERS prn ALBUTEROL SULFATE 21543389136 Active Parris Jordan MD Active CVS DAILY MULTIPLE ORAL TABS 1 qd MULTIPLE VITAMIN 04697246661 Active Parris Jordan MD Active CALCIUM 600 MG ORAL TABS 1 qd CALCIUM 13210686501 Active Parris Jordan MD Active CVS D3 CAPS 1 qd CHOLECALCIFEROL CAPS 95984805883 Active Parris Jordan MD Active EFFEXOR XR 75 MG ORAL RC93H-VKG 1 qd VENLAFAXINE HCL 33135392337 Active Parris Jordan MD Active XELJANZ 5 MG ORAL TABS 1 bid TOFACITINIB CITRATE 21777038540 Active Parris Jordan MD Active ATORVASTATIN CALCIUM 40 MG ORAL TABS 1 qd ATORVASTATIN CALCIUM 43217927700 Active Parris Jordan MD Active LOPRESSOR TABS 25 mg 1 bid METOPROLOL TARTRATE TABS 14854986795 Active Parris Jordan MD Active ALPRAZOLAM 1 MG ORAL TABS 1 tid ALPRAZOLAM 94283791576 Active Parris Jordan MD Active TRAMADOL HCL 50 MG ORAL TABS 4x a day TRAMADOL HCL 67904881408 Active Parris Jordan MD Active OMEPRAZOLE 40 MG ORAL CPDR 1 qd OMEPRAZOLE 28836378765 Active Parris Jordan MD Active NORVASC 5 MG ORAL TABS 1 qd NORVASC 5 MG ORAL TABS 233585 AMLODIPINE BESYLATE Inactive SYMBICORT 80-4.5 MCG/ACT INH AERO 2 puffs daily SYMBICORT 80-4.5 MCG/ACT INH AERO BUDESONIDE-FORMOTEROL FUMARATE Inactive MELOXICAM 7.5 MG ORAL TABS 2 qd MELOXICAM 7.5 MG ORAL TABS 514520 MELOXICAM Inactive ABILIFY 5 MG ORAL TABS 1 qd ABILIFY 5 MG ORAL TABS 420268 ARIPIPRAZOLE Inactive Advance Directives Directive Description Start [...] 1.010 Encounters Code Encounter Date Provider Facility CPT-46932 Level 3 Est. Patient 16:17:17 CDT Parris Jordan MD [facility] CPT-95571 Level 3 Est. Patient 16:06:50 CDT Parris Jordan MD [facility] CPT-43527 Level 3 Est. Patient 16:52:25 CDT Parris Jordan MD [facility] CPT-83763 Level 3 Est. Patient 17:13:41 CDT Parris Jordan MD [facility] CPT-27564 Level 4 New Patient 22:47:28 CDT Parris Jordan MD [facility] Procedures Code Procedure Name Date Entry Date Standard Description CPT-44896 Bladder Scan 16:17:18 CDT CPT-26058 Bladder Scan 16:06:50 CDT CPT-05906 Postop F/U Visit 11:51:38 CDT CPT-77814 Interstim trial 17:13:41 CDT
--- OUTSIDE RECORDS SUMMARY | 2017-04-01 18:41 | XMS REPORT ---
Author Author TEQUILA MINOR [facility] [employer] Address Unknown Phone Unavailable Care Team Providers Care Auto Brake Mechanic Name Role Phone TEQUILA MINOR CP Unavailable Allergies, Adverse Reactions, Alerts Substance [...] Problem Generalized anxiety disorder F41.1 Active Assessment ADHD (attention deficit hyperactivity disorder), combined type F90.2 Active Problem Dysthymic disorder F34.1 Active Problem [...] Assessment Generalized anxiety disorder F41.1 Active Assessment Dysthymic disorder F34.1 Active Problem Dysuria 788.1 Active Problem Dizziness and giddiness 780.4 Active Problem Fever, unspecified 780.60 Active Problem Unspecified hemorrhoids without mention of complication 455.6 Active Problem Cough 786.2 Active Problem Leukoplakia of oral mucosa, 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 Medications Medication Code System Code Instructions Start Date End Date Status Dosage Zofran ODT [facility] [address]-55 4 MG Orally every 8 hrs Jul 18, 2015 1 tablet on the tongue and allow to dissolve Ambien [facility] [address]-64 5 MG Orally Once a day April 30, 2015 1 tablet at bedtime VESIcare [facility] 25091447377 5 MG 1 tablet by Oral route 1 time per day Symbicort [facility] [address]-59 80-4.5 mcg/actuation Oct 29, 2014 2 puffs by Inhalation route 2 times per day for 30 day(s) Atorvastatin Calcium [facility] [address]-42 40 MG Orally Once a day 1 tablet Effexor XR [facility] [address]-29 75 MG Orally twice a day February 22, 2015 1 capsule with food Mobic [facility] [address]-52 7.5 mg Nov 20, 2014 take 1 tablet by Oral route 2 times per day Abilify [facility] [address]-24 5 MG TAKE ONE TABLET BY MOUTH DAILY Metoprolol Succinate ER [facility] [address]-58 25 MG Orally Once a day 1 tablet ProAir HFA [facility] [address]-95 90 mcg/actuation January 01, 2015 2 puffs by Inhalation route 4 times per day for 30 day(s) PRN shortness of breath Albuterol Sulfate [facility] [address]-61 2.5 mg /3 mL (0.083 %) Jul 23, 2014 1 Each by Inhalation route every 4 hours for cough and wheeze PRN for wheezing or cough Xeljanz [facility] [address]-01 5 mg December 19, 2013 1 Tablet by Oral route 2 times per day Omeprazole [facility] 46959250893 40 MG Orally Once a day 1 capsule Ritalin [facility] [address]-18 10 MG Orally Three times per day Jun 28, 2015 1 tablet Xanax [facility] [address]-32 1 MG Orally 3 times a day PRN PANIC AND ANXIETY MUST LAST [address] Qureshi to sign for Winnie December 11, 2014 take 1 tablet Norvasc [facility] [address]-42 5 MG Orally Once a day 1 tablet Tramadol HCl [facility] [address]-66 50 MG Orally 4 times a day 1 tablet as needed Calcium 600 + D [facility] 06129-[address]681 600-200 MG-UNIT Orally not defined Multivitamins [facility] [address] Orally not defined Procedures Procedure Coding System Code Date Office Visit, Est Pt., Level 3 CPT-4 11115 Aug 15, 2015 [facility] VISIT ESTABLISHED PATIENT CPT-4 G0467 Aug 15, 2015 Vital Signs Date/Time: Aug 15, 2015 Cardiac Monitoring Heart Rate 96 bpm Weight 231.2 lbs Height 67 in BMI 36.21 Index Blood Pressure Diastolic 85 mmHg Blood Pressure Systolic 140 mmHg Results No Known Results Summary Purpose [employer] Submission
--- OUTSIDE RECORDS SUMMARY | 2017-04-01 18:41 | XMS REPORT ---
Author Author LORI SNOWDEN Organization [employer] Address Unknown Phone Unavailable Care Team Providers Care Ceramic Tile Mechanic Name Role Phone LORI SNOWDEN CP Unavailable [...] Active Problem Rheumatoid arthritis M06.9 Active Assessment Asthma J45.909 Active Assessment Hypokalemia E87.6 Active Assessment Hypertension I10 Active Assessment Nausea R11.0 Active Assessment Chronic pain syndrome G89.4 Active Medications Medication Code System Code Instructions Start Date End Date Status Dosage Tramadol HCl [facility] [address]-99 50 mg Orally 4 times a day PRN PAIN 1-2 tablets ProAir HFA [facility] 08069431341 108 (90 Base) MCG/ACT INHALE TWO PUFFS BY MOUTH FOUR TIMES PER DAY NEEDED FOR SHORTNESS OF BREATH Albuterol Sulfate [facility] [address]-13 2.5 mg /3 mL (0.083 %) Jul 23, 2014 1 Each by Inhalation route every 4 hours for cough and wheeze PRN for wheezing or cough Trulicity [facility] [address]-54 0.75 MG/0.5ML INJECT 0.5 MLS SUBCUTANEOUSLY ONCE A WEEK Advair Diskus [facility] [address]-10 100-50 MCG/DOSE Inhalation Twice a day Jul 15, 2016 1 puff Metoprolol Tartrate [facility] [address]-23 25 MG Orally Twice a day 1 tablet with food Zofran [facility] [address]-86 4 MG Orally 3 times a day May 29, 2016 1 tablet Ritalin [facility] [address]-37 20 mg Orally daily Sep 13, 2015 1 tablet every am and 1/2 tab at noon, 1/2 tab at 1500. Atorvastatin Calcium [facility] [address]-78 40 MG Orally Once a day 1 tablet Klor-Con M10 [facility] [address]-39 10 MEQ Orally Twice a day Jun 26, 2016 1 tablet with food Effexor XR [facility] 97878223504 150 MG TAKE ONE CAPSULE BY MOUTH TWICE DAILY WITH FOOD Omeprazole [facility] 30696841789 40 MG Orally Once a day 1 capsule Venlafaxine HCl ER [facility] [address]-66 150 MG Orally twice a day 1 capsule with food Meloxicam [facility] [address]-45 7.5 MG Orally twice a day as needed for pain 1 tablet Zetia [facility] [address]-41 10 MG Orally Once a day 1 tablet Cyclobenzaprine HCl [facility] [address]-96 10 mg Orally Three times a day Jul 1 tablet as needed Xanax [facility] [address]-77 1 MG Orally Three times a day as needed December 11, 2014 take 1 tablet Xeljanz [facility] [address]-63 5 mg December 19, 2013 1 Tablet by Oral route 2 times per day Vitamin D3 [facility] [address]-32 2000 UNIT Orally Once a day 1 capsule Morphine Sulfate [facility] [address]-51 15 MG Orally Once a day PRN PAIN February .5 tablet Procedures Procedure Coding System Code Date Office Visit, Est Pt., Level 3 CPT-4 12045 Jul 29, 2016 [facility] VISIT ESTABLISHED PATIENT CPT-4 G0467 Jul 29, 2016 Vital Signs Date/Time: Jul 29, 2016 Cardiac Monitoring Heart Rate 84 bpm Weight 202.1 lbs Height 67 in BMI 31.65 Index Blood Pressure Diastolic 78 mmHg Blood Pressure Systolic 132 mmHg Results No Known Results Summary Purpose [employer]ClinicalWorks Submission
--- OUTSIDE RECORDS SUMMARY | 2017-04-01 18:41 | XMS REPORT ---
Author Author LORI SNOWDEN [facility] Address [address] [place] [address] Care Team Providers Care Chief Cloth Finishing Range Operator Name Role Phone LORI SNOWDEN Unavailable PROBLEMS Type Condition ICD9-CM Code WVO16-TQ Code Onset Dates Condition Status SNOMED Code Problem Generalized anxiety disorder F41.1 Active 98759315 Problem Chronic pain syndrome G89.4 Active 439006592 Problem ADHD (attention deficit hyperactivity disorder), combined type F90.2 Active 02436757 Problem Arteriosclerotic coronary artery disease I25.10 Active 88871233 Problem Mixed hyperlipidemia E78.2 Active 233531024 Problem Rheumatoid arthritis M06.9 Active 26972458 Problem Weight gain R63.5 Active 5092219 Problem Asthma J45.909 Active 680728715 Problem Hypertension I10 Active 87940258 Assessment Abscess of right axilla L02.411 Sep, Active 05896634545424783 Assessment Herpes simplex type 1 infection B00.9 Sep, Active 214814350 Assessment Breast cancer screening Z12.39 Sep, Active 249271954 Assessment Cervical cancer screening Z12.4 Sep, Active 875142371 Assessment Hypokalemia E87.6 Sep, Active 41024533 Assessment Routine gynecological examination V72.31 Sep, Active 680213436923049 Assessment Colon cancer screening Z12.11 Sep, Active 487118957 Problem Dysthymic disorder F34.1 Active 98817872 ALLERGIES Substance Reaction Event Type Date Status Breo Ellipta nausea Drug Allergy Sep, Active Solu-Medrol rash, swelling Drug Allergy Sep, Active Paxil Unknown Drug Allergy Sep, Active Hydrocodone-Acetaminophen hives Drug Allergy Sep, Active Doxycycline Hyclate local swellling Drug Allergy Sep, Active Codeine Sulfate hives Drug Allergy Sep, Active Oxybutynin 5 Ea Tablet mouth sores Non Drug Allergy Sep, Active Iodinated Contrast Media - Iv Dye unknown Non Drug Allergy Sep, Active SOCIAL HISTORY No smoking Hx information available PLAN OF CARE Activity Details Pending Test PAP TEST W/ HPV REGARDLESS Pending Test Mammogram, Bilateral Screening prn,Reason: VITAL SIGNS Height 67 in 2016-09-17 Weight 196.7 lbs 2016-09-17 Heart Rate 110 bpm 2016-09-17 Respiratory Rate 20 2016-09-17 BMI 30.80 kg/m2 2016-09-17 Blood pressure systolic 118 mmHg 2016-09-17 Blood pressure diastolic 84 mmHg 2016-09-17 MEDICATIONS Medication Instructions Dosage Frequency Start Date End Date Duration Status Zetia 10 MG Orally Once a day 1 tablet 24h Active Effexor XR 150 MG TAKE ONE CAPSULE BY MOUTH TWICE DAILY WITH FOOD 30 Active Meloxicam 7.5 MG Orally twice a day as needed for pain 1 tablet Active Atorvastatin Calcium 40 MG Orally Once a day 1 tablet 24h Active Albuterol Sulfate 2.5 mg /3 mL (0.083 %) 1 Each by Inhalation route every 4 hours for cough and wheeze PRN for wheezing or cough Jul, Active Abreva 10 % Externally 5 times per day as directed Sep, Active Morphine Sulfate 15 MG Orally Once a day PRN PAIN .5 tablet February, Active Omeprazole 40 MG Orally Once a day 1 capsule 24h 90 Active Xeljanz 5 mg 1 Tablet by Oral route 2 times per day Dec, Active Advair Diskus 100-50 MCG/DOSE Inhalation Twice a day 1 puff 12h Jul, Active Vitamin D3 2000 UNIT Orally Once a day 1 capsule 24h Active ProAir HFA 108 (90 Base) MCG/ACT INHALE TWO PUFFS BY MOUTH FOUR TIMES PER DAY NEEDED FOR SHORTNESS OF BREATH 25 Active Bactrim DS 800-160 MG Orally Twice a day 1 tablet 12h Sep,Sep 10 day(s) Active Trulicity 0.75 MG/0.5ML INJECT 0.5 MLS SUBCUTANEOUSLY ONCE A WEEK 28 Active Metoprolol Tartrate 25 MG Orally Twice a day 1 tablet with food 12h Active Zofran 4 MG Orally 3 times a day 1 tablet 8h May, 07 days Active Tramadol HCl 50 mg Orally 4 times a day PRN PAIN 1-2 tablets Active Cyclobenzaprine HCl 10 mg Orally Three times a day 1 tablet as needed 8h Jul, Active RESULTS Name Result Date Reference Range [facility] 2016-09-17 Glucose, Serum 98 65-99 BUN 11 6-24 Creatinine, Serum 0.96 0.57-1.00 eGFR If NonAfricn Am 65 >59 eGFR If Africn Am 75 >59 BUN/Creatinine Ratio 11 9-23 Sodium, Serum 141 136-144 Potassium, Serum 3.9 3.5-5.2 Chloride, Serum 100 97-106 Carbon Dioxide, Total 26 18-29 Calcium, Serum 9.7 8.7-10.2 PDF Report 2016-09-17 PDF Report1 [facility] PAP TEST W/ HPV REGARDLESS 2016-09-17 DIAGNOSIS: Specimen adequacy: Clinician provided ICD10: Performed by: . . Note: HPV, high-risk Negative Negative Mammogram, Bilateral Screening 2016-09-22 PROCEDURES Procedure Date Ordered Related Diagnosis Body Site LAB NOT BILLED BY [facility] Sep 17, 2016 SPECIMEN HANDLING Sep 17, 2016 [facility] VISIT ESTABLISHED PATIENT Sep 17, 2016 VENIPUNCT, ROUTINE* Sep 17, 2016 Office Visit, Est Pt., Level 4 Sep 17, 2016 IMMUNIZATIONS No Known Immunizations
--- OUTSIDE RECORDS SUMMARY | 2017-04-01 18:42 | XMS REPORT ---
Author Author LORI SNOWDEN Organization [employer] Address Unknown Phone Unavailable Care Team Providers Care Air Intelligence Specialist Name Role Phone LORI SNOWDEN CP Unavailable Allergies No Known Allergies Problems Problem Type Condition Code Onset Dates Condition Status Assessment Hyperinsulinemia E16.1 Active Problem Dysthymic disorder F34.1 Active Assessment Abnormal kidney function N28.9 Active Assessment Nausea R11.0 Active Problem Hypertension I10 Active Problem Rheumatoid arthritis M06.9 Active Problem Asthma J45.909 Active Problem ADHD (attention deficit hyperactivity disorder), combined type F90.2 Active Problem Generalized anxiety disorder F41.1 Active Problem Weight gain R63.5 Active Problem Chronic pain syndrome G89.4 Active Medications Medication Code System Code Instructions Start Date End Date Status Dosage Kevin [facility] [address]-08 4 MG Orally 3 times a day May 29, 2016 1 tablet Results No Known Results Summary Purpose [employer] Submission
--- OUTSIDE RECORDS SUMMARY | 2017-04-01 18:42 | XMS REPORT ---
Author Author CYNTHIA GOOD Organization [employer] Address Unknown Phone Unavailable Care Team Providers Care Bark Fitter Name Role Phone CYNTHIA GOOD CP Unavailable Allergies No Known Allergies [...]
--- OUTSIDE RECORDS SUMMARY | 2017-04-01 18:42 | XMS REPORT | Clinical Summary ---
Author Author Admin, [facility] Organization [facility] Address Unknown Phone Unavailable Allergies, Adverse Reactions, [...] 1 tab by mputh daily METHYLPHENIDATE HCL 26487076017 Active Aaliyah Alvares Active RITALIN 20 MG ORAL TABS 1 tab by mouth twice daily METHYLPHENIDATE HCL 51463913573 [facility] NORVASC 5 MG ORAL TABS 1 qd AMLODIPINE BESYLATE 17128026766 No Longer Active Aaliyah Alvares Active PROAIR HFA 108 (90 BASE) MCG/ACT INH AERS prn ALBUTEROL SULFATE 47792907728 Active Parris Jordan MD Active SYMBICORT 80-4.5 MCG/ACT INH AERO 2 puffs daily BUDESONIDE- FORMOTEROL FUMARATE 74678547524 Active Parris Jordan MD Active CVS DAILY MULTIPLE ORAL TABS 1 qd MULTIPLE VITAMIN 77477952272 Active Parris Jordan MD Active CALCIUM 600 MG ORAL TABS 1 qd CALCIUM 15864993409 Active Parris Jordan MD Active CVS D3 CAPS 1 qd CHOLECALCIFEROL CAPS 68760397683 Active Parris Jordan MD Active EFFEXOR XR 75 MG ORAL XY20Y-SEG 1 qd VENLAFAXINE HCL 93897315802 Active Parris Jordan MD Active XELJANZ 5 MG ORAL TABS 1 bid TOFACITINIB CITRATE 79306578950 Active Parris Jordan MD Active MELOXICAM 7.5 MG ORAL TABS 2 qd MELOXICAM 96234540650 Active Parris Jordan MD Active ATORVASTATIN CALCIUM 40 MG ORAL TABS 1 qd ATORVASTATIN CALCIUM 53145758614 Active Parris Jordan MD Active LOPRESSOR TABS 25 mg 1 bid METOPROLOL TARTRATE TABS 96254196007 Active Parris Jordan MD Active ALPRAZOLAM 1 MG ORAL TABS 1 tid ALPRAZOLAM 87052115364 Active Parris Jordan MD Active ABILIFY 5 MG ORAL TABS 1 qd ARIPIPRAZOLE 51492298549 Active Parris Jordan MD Active TRAMADOL HCL 50 MG ORAL TABS 4x a day TRAMADOL HCL 71396802653 Active Parris Jordan MD Active OMEPRAZOLE 40 MG ORAL CPDR 1 qd OMEPRAZOLE 13414216538 Active Parris Jordan MD Active NORVASC 5 MG ORAL TABS 1 qd NORVASC 5 MG ORAL TABS 639711 AMLODIPINE BESYLATE Inactive Advance Directives Directive Description [...] 1.005 Encounters Code Encounter Date Provider Facility CPT-22762 Level 3 Est. Patient 17:13:41 CDT Parris Jordan MD [facility] CPT-28909 Level 4 New Patient 22:47:28 CDT Parris Jordan MD [facility] Procedures Code Procedure Name Date Entry Date Standard Description CPT-55602 Postop F/U Visit 11:51:38 CDT CPT-92448 Interstim trial 17:13:41 CDT
--- OUTSIDE RECORDS SUMMARY | 2017-04-01 18:46 | XMS REPORT | Continuity of Care Document ---
Author Author [facility] Address Unknown Phone Unavailable Allergies Active Description Code Type Severity Reaction Onset Reported/Identified Relationship to Patient Clinical Status Yes codeine 1550 Drug Allergy Severe Swelling Yes codeine 1550 Drug Allergy N/A N/A Confirmed or Verified Yes doxycycline 2748 Drug Allergy N/A N/A Confirmed or Verified Yes hydrocodone 1554 Drug Allergy Severe Swelling Yes hydrocodone 1554 Drug Allergy N/A N/A Confirmed or Verified Yes methylprednisolone 2160 Drug Allergy Severe Swelling Yes methylprednisolone 2160 Drug Allergy N/A N/A Confirmed or Verified Yes oxybutynin 4715 Drug Allergy Moderate mouth sores Yes oxybutynin 4715 Drug Allergy N/A N/A Confirmed or Verified Yes PAPER TAPE Paper Tape Miscellaneous Allergy Moderate redness Yes PAPER TAPE Paper Tape Miscellaneous Allergy N/A N/A Confirmed or Verified Yes codeine Drug Allergy N/A N/A 11/22/2008 Yes hydrocodone Drug Allergy N/A N/A 11/22/2008 Yes codeine Drug Allergy 11/22/2008 Yes hydrocodone Drug Allergy 11/22/2008 Yes Solu-Medrol Drug Allergy N/A N/A 07/04/2009 Yes Solu-Medrol Drug Allergy 07/04/2009 Yes doxycycline Drug Allergy N/A N/A 04/21/2010 Yes doxycycline Drug Allergy 04/21/2010 Yes Oxybutynin 5 EA tablet Drug Allergy N/A N/A 06/06/2012 Yes Oxybutynin 5 EA tablet Drug Allergy 06/06/2012 Yes Iodinated Contrast Media - IV Dye Drug Allergy N/A N/A 07/23/2014 Yes Paxil 40 mg tablet Drug Allergy N/A N/A 01/15/2015 Yes PAPER TAPE PAPER TAPE Unknown BLISTERS/SORES 07/10/2015 Yes doxycycline [id number] Drug Allergy Moderate FACIAL SWELLING 03/29/2017 Yes fluticasone furoate [id number] Drug Allergy Moderate N/V 03/29/2017 Yes hydrocodone [id number] Drug Allergy Moderate DYSPNEA, HIVES 03/29/2017 Yes Iodinated Contrast- Oral and IV Dye [id number] Drug Allergy Moderate N/A 03/29/2017 Yes paroxetine [id number] Drug Allergy Moderate N/A 03/29/2017 Yes vilanterol [id number] Drug Allergy Moderate N/V 03/29/2017 Yes methylprednisolone [id number] Drug Allergy Mild flushing and sk 03/29/2017 Yes oxybutynin [id number] Drug Allergy Mild sores in mouth 03/29/2017 Yes codeine [id number] Drug Allergy Unknown HIVES 03/29/2017 Medications Problems Date Dx Coded Attending Type Code Diagnosis Diagnosed By 11/22/2008 CORTEZ CARREON DO 300.00 anxiety 11/22/2008 CORTEZ CARREON DO 703.0 Ingrowing Nail With Infection 11/22/2008 CORTEZ CARREON DO 703.9 Dermatology Non-infectious Nails 11/22/2008 CORTEZ CARREON DO 704.8 Folliculitis 11/22/2008 CORTEZ CARREON DO 714.0 RHEUMATOID ARTHRITIS 11/22/2008 CORTEZ CARREON DO 785.6 Swollen Glands In The Neck 11/22/2008 CORTEZ CARREON DO V25.09 Health Seminar On Care 11/22/2008 300.00 anxiety 11/22/2008 703.0 Ingrowing Nail With Infection 11/22/2008 703.9 Dermatology Non-infectious Nails 11/22/2008 704.8 Folliculitis 11/22/2008 714.0 RHEUMATOID ARTHRITIS 11/22/2008 785.6 Swollen Glands In The Neck 11/22/2008 V25.09 Health Seminar On Care 11/22/2008 CORTEZ CARREON DO 300.00 anxiety 11/22/2008 CORTEZ CARREON DO 703.0 Ingrowing Nail With Infection 11/22/2008 CORTEZ CARREON DO 703.9 Dermatology Non-infectious Nails 11/22/2008 CORTEZ CARREON DO 704.8 Folliculitis 11/22/2008 CORTEZ CARREON DO 714.0 RHEUMATOID ARTHRITIS 11/22/2008 CORTEZ CARREON DO 785.6 Swollen Glands In The Neck 11/22/2008 CARREON DO, CORTEZ K V25.09 Health Seminar On Care 11/22/2008 CARREON DOBERTA K 300.00 anxiety 11/22/2008 CARREON DOBERTA K 703.0 Ingrowing Nail With Infection 11/22/2008 CARREON DOBERTA K 703.9 Dermatology Non-infectious Nails 11/22/2008 CARREON DOBERTA K 704.8 Folliculitis 11/22/2008 CARREON DO CORTEZ K 714.0 RHEUMATOID ARTHRITIS 11/22/2008 CARREON DO CORTEZ K 785.6 Swollen Glands In The Neck 11/22/2008 CARREON DO CORTEZ K V25.09 Health Seminar On Care 11/22/2008 MORAIMA LOYA APRN 300.00 anxiety 11/22/2008 MORAIMA LOYA APRN 703.0 Ingrowing Nail With Infection 11/22/2008 MORAIMA LOYA APRN 703.9 Dermatology Non-infectious Nails 11/22/2008 MORAIMA LOYA APRN 704.8 Folliculitis 11/22/2008 MORAIMA LOYA APRN 714.0 RHEUMATOID ARTHRITIS 11/22/2008 MORAIMA LOYA APRN 785.6 Swollen Glands In The Neck 11/22/2008 MORAIMA LOYA APRN V25.09 Health Seminar On Care 11/22/2008 LYNDSAY RASHEED MD 300.00 anxiety 11/22/2008 LYNDSAY RASHEED MD 703.0 Ingrowing Nail With Infection 11/22/2008 LYNDSAY RASHEED MD 703.9 Dermatology Non-infectious Nails 11/22/2008 LYNDSAY RASHEED MD 704.8 Folliculitis 11/22/2008 LYNDSAY RASHEED MD 714.0 RHEUMATOID ARTHRITIS 11/22/2008 LYNDSAY RASHEED MD 785.6 Swollen Glands In The Neck 11/22/2008 LYNDSAY RASHEED MD V25.09 Health Seminar On Care 11/22/2008 MORAIMA LOYA APRN 300.00 anxiety 11/22/2008 MORAIMA LOYA APRN 703.0 Ingrowing Nail With Infection 11/22/2008 MORAIMA LOYA APRN 703.9 Dermatology Non-infectious Nails 11/22/2008 MORAIMA LOYA APRN 704.8 Folliculitis 11/22/2008 MORAIMA LOYA APRN 714.0 RHEUMATOID ARTHRITIS 11/22/2008 MORAIMA LOYA APRN 785.6 Swollen Glands In The Neck 11/22/2008 MORAIMA LOYA APRN V25.09 Health Seminar On Care 11/22/2008 300.00 anxiety 11/22/2008 703.0 Ingrowing Nail With Infection 11/22/2008 703.9 Dermatology Non-infectious Nails 11/22/2008 704.8 Folliculitis 11/22/2008 714.0 RHEUMATOID ARTHRITIS 11/22/2008 785.6 Swollen Glands In The Neck 11/22/2008 V25.09 Health Seminar On Care 11/22/2008 MORAIMA LOYA APRN 300.00 anxiety 11/22/2008 MORAIMA LOYA APRN 703.0 Ingrowing Nail With Infection 11/22/2008 MORAIMA LOYA APRN 703.9 Dermatology Non-infectious Nails 11/22/2008 MORAIMA LOYA APRN 704.8 Folliculitis 11/22/2008 MORAIMA LOYA APRN 714.0 RHEUMATOID ARTHRITIS 11/22/2008 MORAIMA LOYA APRN 785.6 Swollen Glands In The Neck 11/22/2008 MORAIMA LOYA APRN V25.09 Health Seminar On Care 11/22/2008 MORAIMA LOYA APRN 300.00 anxiety 11/22/2008 MORAIMA LOYA APRN 703.0 Ingrowing Nail With Infection 11/22/2008 MORAIMA LOYA APRN 703.9 Dermatology Non-infectious Nails 11/22/2008 MORAIMA LOYA APRN 704.8 Folliculitis 11/22/2008 MORAIMA LOYA APRN 714.0 RHEUMATOID ARTHRITIS 11/22/2008 MORAIMA LOYA APRN 785.6 Swollen Glands In The Neck 11/22/2008 MORAIMA LOYA APRN V25.09 Health Seminar On Care 11/22/2008 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, TEQUILA 300.00 anxiety 11/22/2008 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, TEQUILA 703.0 Ingrowing Nail With Infection 11/22/2008 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, TEQUILA 703.9 Dermatology Non-infectious Nails 11/22/2008 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, TEQUILA 704.8 Folliculitis 11/22/2008 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, TEQUILA 714.0 RHEUMATOID ARTHRITIS 11/22/2008 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, TEQUILA 785.6 Swollen Glands In The Neck 11/22/2008 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, TEQUILA V25.09 Health Seminar On Care 11/22/2008 IVÁN HARRIS, TEQUILA 300.00 anxiety 11/22/2008 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, TEQUILA 703.0 Ingrowing Nail With Infection 11/22/2008 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, TEQUILA 703.9 Dermatology Non-infectious Nails 11/22/2008 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, TEQUILA 704.8 Folliculitis 11/22/2008 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, TEQUILA 714.0 RHEUMATOID ARTHRITIS 11/22/2008 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, TEQUILA 785.6 Swollen Glands In The Neck 11/22/2008 IVÁN HARRIS, TEQUILA V25.09 Health Seminar On Care 11/22/2008 IVÁN HARRIS TEQUILA 300.00 anxiety 11/22/2008 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, TEQUILA 703.0 Ingrowing Nail With Infection 11/22/2008 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, TEQUILA 703.9 Dermatology Non-infectious Nails 11/22/2008 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, TEQUILA 704.8 Folliculitis 11/22/2008 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, TEQUILA 714.0 RHEUMATOID ARTHRITIS 11/22/2008 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, TEQUILA 785.6 Swollen Glands In The Neck 11/22/2008 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, TEQUILA V25.09 Health Seminar On Care 11/22/2008 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, TEQUILA 300.00 anxiety 11/22/2008 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, TEQUILA 703.0 Ingrowing Nail With Infection 11/22/2008 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, TEQUILA 703.9 Dermatology Non-infectious Nails 11/22/2008 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, TEQUILA 704.8 Folliculitis 11/22/2008 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, TEQUILA 714.0 RHEUMATOID ARTHRITIS 11/22/2008 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, TEQUILA 785.6 Swollen Glands In The Neck 11/22/2008 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, TEQUILA V25.09 Health Seminar On Care 11/22/2008 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, TEQUILA 300.00 anxiety 11/22/2008 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, TEQUILA 703.0 Ingrowing Nail With Infection 11/22/2008 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, TEQUILA 703.9 Dermatology Non-infectious Nails 11/22/2008 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, TEQUILA 704.8 Folliculitis 11/22/2008 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, TEQUILA 714.0 RHEUMATOID ARTHRITIS 11/22/2008 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, TEQUILA 785.6 Swollen Glands In The Neck 11/22/2008 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, TEQUILA V25.09 Health Seminar On Care 11/22/2008 SP HARRIS TREVER S 300.00 anxiety 11/22/2008 SP CURTAIN CUTTER HAND, TREVER S 703.0 Ingrowing Nail With Infection 11/22/2008 SP CURTAIN CUTTER HAND, TREVER S 703.9 Dermatology Non-infectious Nails 11/22/2008 SP HARRIS, TREVER S 704.8 Folliculitis 11/22/2008 SP CURTAIN CUTTER HAND, TREVER S 714.0 RHEUMATOID ARTHRITIS 11/22/2008 SP CURTAIN CUTTER HAND, TREVER S 785.6 Swollen Glands In The Neck 11/22/2008 SP HARRIS TREVER S V25.09 Health Seminar On Care 11/22/2008 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, TEQUILA 300.00 anxiety 11/22/2008 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, TEQUILA 703.0 Ingrowing Nail With Infection 11/22/2008 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, TEQUILA 703.9 Dermatology Non-infectious Nails 11/22/2008 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, TEQUILA 704.8 Folliculitis 11/22/2008 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, TEQUILA 714.0 RHEUMATOID ARTHRITIS 11/22/2008 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, TEQUILA 785.6 Swollen Glands In The Neck 11/22/2008 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, TEQUILA V25.09 Health Seminar On Care 11/22/2008 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, TEQUILA 300.00 anxiety 11/22/2008 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, TEQUILA 703.0 Ingrowing Nail With Infection 11/22/2008 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, TEQUILA 703.9 Dermatology Non-infectious Nails 11/22/2008 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, TEQUILA 704.8 Folliculitis 11/22/2008 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, TEQUILA 714.0 RHEUMATOID ARTHRITIS 11/22/2008 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, TEQUILA 785.6 Swollen Glands In The Neck 11/22/2008 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, TEQUILA V25.09 Health Seminar On Care 11/22/2008 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, TEQUILA 300.00 anxiety 11/22/2008 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 TEQUILA 703.0 Ingrowing Nail With Infection 11/22/2008 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 TEQUILA 703.9 Dermatology Non-infectious Nails 11/22/2008 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, TEQUILA 704.8 Folliculitis 11/22/2008 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 TEQUILA 714.0 RHEUMATOID ARTHRITIS 11/22/2008 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, TEQUILA 785.6 Swollen Glands In The Neck 11/22/2008 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, TEQUILA V25.09 Health Seminar On Care 11/22/2008 SP HARRIS, TREVER S 300.00 anxiety 11/22/2008 SP CURTAIN CUTTER HAND, TREVER S 703.0 Ingrowing Nail With Infection 11/22/2008 SP CURTAIN CUTTER HAND, TREVER S 703.9 Dermatology Non-infectious Nails 11/22/2008 SP CURTAIN CUTTER HAND, TREVER S 704.8 Folliculitis 11/22/2008 SP CURTAIN CUTTER HAND, TREVER S 714.0 RHEUMATOID ARTHRITIS 11/22/2008 SP CURTAIN CUTTER HAND, TREVER S 785.6 Swollen Glands In The Neck 11/22/2008 SP CURTAIN CUTTER HAND, TREVER S V25.09 Health Seminar On Care 11/22/2008 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, TEQUILA 300.00 anxiety 11/22/2008 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, TEQUILA 703.0 Ingrowing Nail With Infection 11/22/2008 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 TEQUILA 703.9 Dermatology Non-infectious Nails 11/22/2008 TEQUILA MINOR APRN 704.8 Folliculitis 11/22/2008 TEQUILA MINOR APRN 714.0 RHEUMATOID ARTHRITIS 11/22/2008 TEQUILA MINOR APRN 785.6 Swollen Glands In The Neck 11/22/2008 TEQUILA MINOR APRN V25.09 Health Seminar On Care 11/30/2008 CORTEZ CARREON DO 611.72 Breast Lump Or Mass Right 11/30/2008 CORTEZ CARREON DO V72.31 Routine Gynecological Examination 11/30/2008 611.72 Breast Lump Or Mass Right 11/30/2008 V72.31 Routine Gynecological Examination 11/30/2008 CORTEZ CARREON DO 611.72 Breast Lump Or Mass Right 11/30/2008 CORTEZ CARREON DO V72.31 Routine Gynecological Examination 11/30/2008 CORTEZ CARREON DO 611.72 Breast Lump Or Mass Right 11/30/2008 CORTEZ CARREON DO V72.31 Routine Gynecological Examination 11/30/2008 MORAIMA LOYA APRN 611.72 Breast Lump Or Mass Right 11/30/2008 MORAIMA LOYA APRN V72.31 Routine Gynecological Examination 11/30/2008 LYNDSAY RASHEED MD 611.72 Breast Lump Or Mass Right 11/30/2008 LYNDSAY RASHEED MD V72.31 Routine Gynecological Examination 11/30/2008 MORAIMA LOYA APRN 611.72 Breast Lump Or Mass Right 11/30/2008 MORAIMA LOYA APRN V72.31 Routine Gynecological Examination 11/30/2008 611.72 Breast Lump Or Mass Right 11/30/2008 V72.31 Routine Gynecological Examination 11/30/2008 MORAIMA LOYA APRN 611.72 Breast Lump Or Mass Right 11/30/2008 MORAIMA LOYA APRN V72.31 Routine Gynecological Examination 11/30/2008 MORAIMA LOYA APRN 611.72 Breast Lump Or Mass Right 11/30/2008 MORAIMA LOYA APRN V72.31 Routine Gynecological Examination 11/30/2008 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, TEQUILA 611.72 Breast Lump Or Mass Right 11/30/2008 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, TEQUILA V72.31 Routine Gynecological Examination 11/30/2008 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, TEQUILA 611.72 Breast Lump Or Mass Right 11/30/2008 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, TEQUILA V72.31 Routine Gynecological Examination 11/30/2008 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, TEQUILA 611.72 Breast Lump Or Mass Right 11/30/2008 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, TEQUILA V72.31 Routine Gynecological Examination 11/30/2008 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, TEQUILA 611.72 Breast Lump Or Mass Right 11/30/2008 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, TEQUILA V72.31 Routine Gynecological Examination 11/30/2008 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, TEQUILA 611.72 Breast Lump Or Mass Right 11/30/2008 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, TEQUILA V72.31 Routine Gynecological Examination 11/30/2008 SP CURTAIN CUTTER HAND, TREVER S 611.72 Breast Lump Or Mass Right 11/30/2008 SP KIMBERLY, TREVER S V72.31 Routine Gynecological Examination 11/30/2008 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, TEQUILA 611.72 Breast Lump Or Mass Right 11/30/2008 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, TEQUILA V72.31 Routine Gynecological Examination 11/30/2008 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, TEQUILA 611.72 Breast Lump Or Mass Right 11/30/2008 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, TEQUILA V72.31 Routine Gynecological Examination 11/30/2008 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, TEQUILA 611.72 Breast Lump Or Mass Right 11/30/2008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, TEQUILA V72.31 Routine Gynecological Examination 11/30/2008 SP CURTAIN CUTTER HAND, TREVER S 611.72 Breast Lump Or Mass Right 11/30/2008 SP CURTAIN CUTTER HAND, TREVER S V72.31 Routine Gynecological Examination 11/30/2008 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, TEQUILA 611.72 Breast Lump Or Mass Right 11/30/2008 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, TEQUILA V72.31 Routine Gynecological Examination 03/01/2009 CORTEZ CARREON DO 795.03 Pap Smear (+) Low Grade Squamous Intraepithelial Lesion 03/01/2009 795.03 Pap Smear (+) Low Grade Squamous Intraepithelial Lesion 03/01/2009 CORTEZ CARREON DO K 795.03 Pap Smear (+) Low Grade Squamous Intraepithelial Lesion 03/01/2009 CARREON CORTEZ K 795.03 Pap Smear (+) Low Grade Squamous Intraepithelial Lesion 03/01/2009 MORAIMA LOYA APRN 795.03 Pap Smear (+) Low Grade Squamous Intraepithelial Lesion 03/01/2009 LYNDSAY RASHEED MD 795.03 Pap Smear (+) Low Grade Squamous Intraepithelial Lesion 03/01/2009 MORAIMA LOYA APRN 795.03 Pap Smear (+) Low Grade Squamous Intraepithelial Lesion 03/01/2009 795.03 Pap Smear (+) Low Grade Squamous Intraepithelial Lesion 03/01/2009 MORAIMA LOYA APRN 795.03 Pap Smear (+) Low Grade Squamous Intraepithelial Lesion 03/01/2009 MORAIMA LOYA APRN 795.03 Pap Smear (+) Low Grade Squamous Intraepithelial Lesion 03/01/2009 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, TEQUILA 795.03 Pap Smear (+) Low Grade Squamous Intraepithelial Lesion 03/01/2009 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, TEQUILA 795.03 Pap Smear (+) Low Grade Squamous Intraepithelial Lesion 03/01/2009 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, TEQUILA 795.03 PAP SMEAR (+) LOW GRADE SQUAMOUS INTRAEPITHELIAL LESION 03/01/2009 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, TEQUILA 795.03 PAP SMEAR (+) LOW GRADE SQUAMOUS INTRAEPITHELIAL LESION 03/01/2009 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, TEQUILA 795.03 PAP SMEAR (+) LOW GRADE SQUAMOUS INTRAEPITHELIAL LESION 03/01/2009 SP HARRIS TREVER S 795.03 PAP SMEAR (+) LOW GRADE SQUAMOUS INTRAEPITHELIAL LESION 03/01/2009 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, TEQUILA 795.03 PAP SMEAR (+) LOW GRADE SQUAMOUS INTRAEPITHELIAL LESION 03/01/2009 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, TEQUILA 795.03 PAP SMEAR (+) LOW GRADE SQUAMOUS INTRAEPITHELIAL LESION 03/01/2009 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, TEQUILA 795.03 PAP SMEAR (+) LOW GRADE SQUAMOUS INTRAEPITHELIAL LESION 03/01/2009 SP HARRIS TREVER S 795.03 PAP SMEAR (+) LOW GRADE SQUAMOUS INTRAEPITHELIAL LESION 03/01/2009 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, TEQUILA 795.03 PAP SMEAR (+) LOW GRADE SQUAMOUS INTRAEPITHELIAL LESION 07/04/2009 CARREON DO, CORTEZ K 278.02 OVERWEIGHT 07/04/2009 278.02 OVERWEIGHT 07/04/2009 CARREON DO, CORTEZ K 278.02 OVERWEIGHT 07/04/2009 CARREON DO, CORTEZ K 278.02 OVERWEIGHT 07/04/2009 LIDATON MORAIMA HARRIS 278.02 OVERWEIGHT 07/04/2009 LYNDSAY RASHEED MD 278.02 OVERWEIGHT 07/04/2009 MORAIMA LOYA APRN 278.02 OVERWEIGHT 07/04/2009 278.02 OVERWEIGHT 07/04/2009 GARTON CURTAIN CUTTER HANDMORAIMA Sims 278.02 OVERWEIGHT 07/04/2009 GARTON CURTAIN CUTTER HANDMORAIMA Sims 278.02 OVERWEIGHT 07/04/2009 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, TEQUILA 278.02 OVERWEIGHT 07/04/2009 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, TEQUILA 278.02 OVERWEIGHT 07/04/2009 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, TEQUILA 278.02 OVERWEIGHT 07/04/2009 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, TEQUILA 278.02 OVERWEIGHT 07/04/2009 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, TEQUILA 278.02 OVERWEIGHT 07/04/2009 SP CURTAIN CUTTER HAND, TREVER S 278.02 OVERWEIGHT 07/04/2009 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, TEQUILA 278.02 OVERWEIGHT 07/04/2009 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, TEQUILA 278.02 OVERWEIGHT 07/04/2009 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, TEQUILA 278.02 OVERWEIGHT 07/04/2009 SP CURTAIN CUTTER HAND, TREVER S 278.02 OVERWEIGHT 07/04/2009 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, TEQUILA 278.02 OVERWEIGHT 12/26/2009 CARREON DO, CORTEZ K 250.00 DIABETES MELLITUS 12/26/2009 CARREON DO, CORTEZ K 716.90 ARTHROPATHY 12/26/2009 250.00 DIABETES MELLITUS 12/26/2009 716.90 ARTHROPATHY 12/26/2009 CARREON DO, CORTEZ K 250.00 DIABETES MELLITUS 12/26/2009 CARREON DO, CORTEZ K 716.90 ARTHROPATHY 12/26/2009 CARREON DO, CORTEZ K 250.00 DIABETES MELLITUS 12/26/2009 CARREON DO, CORTEZ K 716.90 ARTHROPATHY 12/26/2009 MORAIMA LOYA APRN 250.00 DIABETES MELLITUS 12/26/2009 MORAIMA LOYA APRN 716.90 ARTHROPATHY 12/26/2009 LYNDSAY RASHEED MD 250.00 DIABETES MELLITUS 12/26/2009 LYNDSAY RASHEED MD 716.90 ARTHROPATHY 12/26/2009 MORAIMA LOYA APRN 250.00 DIABETES MELLITUS 12/26/2009 MORAIMA LOYA APRN 716.90 ARTHROPATHY 12/26/2009 250.00 DIABETES MELLITUS 12/26/2009 716.90 ARTHROPATHY 12/26/2009 MORAIMA LOYA APRN 250.00 DIABETES MELLITUS 12/26/2009 MORAIMA LOYA APRN 716.90 ARTHROPATHY 12/26/2009 MORAIMA LOYA APRN 250.00 DIABETES MELLITUS 12/26/2009 MORAIMA LOYA APRN 716.90 ARTHROPATHY 12/26/2009 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, TEQUILA 250.00 DIABETES MELLITUS 12/26/2009 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, TEQUILA 716.90 ARTHROPATHY 12/26/2009 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, TEQUILA 250.00 DIABETES MELLITUS 12/26/2009 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, TEQUILA 716.90 ARTHROPATHY 12/26/2009 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, TEQUILA 250.00 DIABETES MELLITUS 12/26/2009 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, TEQUILA 716.90 ARTHROPATHY 12/26/2009 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, TEQUILA 250.00 DIABETES MELLITUS 12/26/2009 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, TEQUILA 716.90 ARTHROPATHY 12/26/2009 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, TEQUILA 250.00 DIABETES MELLITUS 12/26/2009 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, TEQUILA 716.90 ARTHROPATHY 12/26/2009 SP CURTAIN CUTTER HAND, TREVER S 250.00 DIABETES MELLITUS 12/26/2009 SP CURTAIN CUTTER HAND, TREVER S 716.90 ARTHROPATHY 12/26/2009 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, TEQUILA 250.00 DIABETES MELLITUS 12/26/2009 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, TEQUILA 716.90 ARTHROPATHY 12/26/2009 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, TEQUILA 250.00 DIABETES MELLITUS 12/26/2009 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, TEQUILA 716.90 ARTHROPATHY 12/26/2009 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, TEQUILA 250.00 DIABETES MELLITUS 12/26/2009 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, TEQUILA 716.90 ARTHROPATHY 12/26/2009 SP CURTAIN CUTTER HAND, TREVER S 250.00 DIABETES MELLITUS 12/26/2009 SP CURTAIN CUTTER HAND, TREVER S 716.90 ARTHROPATHY 12/26/2009 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, TEQUILA 250.00 DIABETES MELLITUS 12/26/2009 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, TEQUILA 716.90 ARTHROPATHY 01/08/2010 CARREON DO, CORTEZ K 682.3 Skin Abscess Of The Left Axilla 01/08/2010 682.3 Skin Abscess Of The Left Axilla 01/08/2010 CARREON DO, CORTEZ K 682.3 Skin Abscess Of The Left Axilla 01/08/2010 CARREON DO, CORTEZ K 682.3 Skin Abscess Of The Left Axilla 01/08/2010 MORAIMA LOYA APRN 682.3 Skin Abscess Of The Left Axilla 01/08/2010 LYNDSAY RASHEED MD 682.3 Skin Abscess Of The Left Axilla 01/08/2010 MORAIMA LOYA APRN 682.3 Skin Abscess Of The Left Axilla 01/08/2010 682.3 Skin Abscess Of The Left Axilla 01/08/2010 GARTON MORAIMA HARRIS 682.3 Skin Abscess Of The Left Axilla 01/08/2010 MORAIMA LOYA APRN 682.3 Skin Abscess Of The Left Axilla 01/08/2010 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, TEQUILA 682.3 Skin Abscess Of The Left Axilla 01/08/2010 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, TEQUILA 682.3 Skin Abscess Of The Left Axilla 01/08/2010 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, TEQUILA 682.3 Skin Abscess Of The Left Axilla 01/08/2010 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, TEQUILA 682.3 Skin Abscess Of The Left Axilla 01/08/2010 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, TEQUILA 682.3 Skin Abscess Of The Left Axilla 01/08/2010 SP CURTAIN CUTTER HAND, TREVER S 682.3 Skin Abscess Of The Left Axilla 01/08/2010 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, TEQUILA 682.3 Skin Abscess Of The Left Axilla 01/08/2010 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, TEQUILA 682.3 Skin Abscess Of The Left Axilla 01/08/2010 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, TEQUILA 682.3 Skin Abscess Of The Left Axilla 01/08/2010 TREVER SNOWDEN APRN 682.3 Skin Abscess Of The Left Axilla 01/08/2010 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, TEQUILA 682.3 Skin Abscess Of The Left Axilla 01/11/2010 CARREON DO, CORTEZ K 682.9 Cellulitis 01/11/2010 CARREON DO, CORTEZ K V58.31 Wound Dressing 01/11/2010 682.9 Cellulitis 01/11/2010 V58.31 Wound Dressing 01/11/2010 CARREON DO, CORTEZ K 682.9 Cellulitis 01/11/2010 CARREON DO, CORTEZ K V58.31 Wound Dressing 01/11/2010 CARREON DO, CORTEZ K 682.9 Cellulitis 01/11/2010 CARREON DO, CORTEZ K V58.31 Wound Dressing 01/11/2010 MORAIMA LOYA APRN 682.9 Cellulitis 01/11/2010 MORAIMA LOYA APRN D V58.31 Wound Dressing 01/11/2010 LYNDSAY RASHEED MD 682.9 Cellulitis 01/11/2010 LYNDSAY RASHEED MD V58.31 Wound Dressing 01/11/2010 MORAIMA LOYA APRN 682.9 Cellulitis 01/11/2010 MORAIMA LOYA APRN D V58.31 Wound Dressing 01/11/2010 682.9 Cellulitis 01/11/2010 V58.31 Wound Dressing 01/11/2010 MORAIMA LOYA APRN 682.9 Cellulitis 01/11/2010 MORAIMA LOYA APRN D V58.31 Wound Dressing 01/11/2010 MORAIMA LOYA APRN D 682.9 Cellulitis 01/11/2010 MORAIMA LOYA APRN D V58.31 Wound Dressing 01/11/2010 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TEQUILA Sims 682.9 Cellulitis 01/11/2010 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, TEQUILA V58.31 Wound Dressing 01/11/2010 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, TEQUILA 682.9 Cellulitis 01/11/2010 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, TEQUILA V58.31 Wound Dressing 01/11/2010 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, TEQUILA 682.9 Cellulitis 01/11/2010 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, TEQUILA V58.31 Wound Dressing 01/11/2010 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, TEQUILA 682.9 Cellulitis 01/11/2010 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, TEQUILA V58.31 Wound Dressing 01/11/2010 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, TEQUILA 682.9 Cellulitis 01/11/2010 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, TEQUILA V58.31 Wound Dressing 01/11/2010 SP CURTAIN CUTTER HAND, TREVER S 682.9 Cellulitis 01/11/2010 SP CURTAIN CUTTER HAND, TREVER S V58.31 Wound Dressing 01/11/2010 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, TEQUILA 682.9 Cellulitis 01/11/2010 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, TEQUILA V58.31 Wound Dressing 01/11/2010 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, TEQUILA 682.9 Cellulitis 01/11/2010 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, TEQUILA V58.31 Wound Dressing 01/11/2010 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, TEQUILA 682.9 Cellulitis 01/11/2010 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, TEQUILA V58.31 Wound Dressing 01/11/2010 SP CURTAIN CUTTER HAND, TREVER S 682.9 Cellulitis 01/11/2010 SP CURTAIN CUTTER HAND, TREVER S V58.31 Wound Dressing 01/11/2010 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, TEQUILA 682.9 Cellulitis 01/11/2010 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, TEQUILA V58.31 Wound Dressing 01/17/2010 CORTEZ CARREON DO K 564.1 IRRITABLE BOWEL SYNDROME 01/17/2010 BERT CARREON DOA K 791.0 PROTEINURIA 01/17/2010 564.1 IRRITABLE BOWEL SYNDROME 01/17/2010 791.0 PROTEINURIA 01/17/2010 CARREON DO, CORTEZ K 564.1 IRRITABLE BOWEL SYNDROME 01/17/2010 CARREON , CORTEZ K 791.0 PROTEINURIA 01/17/2010 CARREON BERT HERNADEZA K 564.1 IRRITABLE BOWEL SYNDROME 01/17/2010 CARREON , CORTEZ K 791.0 PROTEINURIA 01/17/2010 MORAIMA LOYA APRN 564.1 IRRITABLE BOWEL SYNDROME 01/17/2010 MORAIMA LOYA APRN 791.0 PROTEINURIA 01/17/2010 LYNDSAY RASHEED MD 564.1 IRRITABLE BOWEL SYNDROME 01/17/2010 LYNDSAY RASHEED MD 791.0 PROTEINURIA 01/17/2010 MORAIMA LOYA APRN 564.1 IRRITABLE BOWEL SYNDROME 01/17/2010 MORAIMA LOYA APRN 791.0 PROTEINURIA 01/17/2010 564.1 IRRITABLE BOWEL SYNDROME 01/17/2010 791.0 PROTEINURIA 01/17/2010 MORAIMA LOYA APRN 564.1 IRRITABLE BOWEL SYNDROME 01/17/2010 MORAIMA LOYA APRN 791.0 PROTEINURIA 01/17/2010 MORAIMA LOYA APRN 564.1 IRRITABLE BOWEL SYNDROME 01/17/2010 MORAIMA LOYA APRN 791.0 PROTEINURIA 01/17/2010 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, TEQUILA 564.1 IRRITABLE BOWEL SYNDROME 01/17/2010 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, TEQUILA 791.0 PROTEINURIA 01/17/2010 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, TEQUILA 564.1 IRRITABLE BOWEL SYNDROME 01/17/2010 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, TEQUILA 791.0 PROTEINURIA 01/17/2010 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, TEQUILA 564.1 IRRITABLE BOWEL SYNDROME 01/17/2010 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, TEQUILA 791.0 PROTEINURIA 01/17/2010 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, TEQUILA 564.1 IRRITABLE BOWEL SYNDROME 01/17/2010 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, TEQUILA 791.0 PROTEINURIA 01/17/2010 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, TEQUILA 564.1 IRRITABLE BOWEL SYNDROME 01/17/2010 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, TEQUILA 791.0 PROTEINURIA 01/17/2010 SP CURTAIN CUTTER HAND, TREVER S 564.1 IRRITABLE BOWEL SYNDROME 01/17/2010 SP CURTAIN CUTTER HAND, TREVER S 791.0 PROTEINURIA 01/17/2010 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, TEQUILA 564.1 IRRITABLE BOWEL SYNDROME 01/17/2010 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, TEQUILA 791.0 PROTEINURIA 01/17/2010 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, TEQUILA 564.1 IRRITABLE BOWEL SYNDROME 01/17/2010 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, TEQUILA 791.0 PROTEINURIA 01/17/2010 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, TEQUILA 564.1 IRRITABLE BOWEL SYNDROME 01/17/2010 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, TEQUILA 791.0 PROTEINURIA 01/17/2010 JAYCOB SNOWDEN APRNA S 564.1 IRRITABLE BOWEL SYNDROME 01/17/2010 SAMANTHA SNOWDEN APRNNDA S 791.0 PROTEINURIA 01/17/2010 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, TEQUILA 564.1 IRRITABLE BOWEL SYNDROME 01/17/2010 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, TEQUILA 791.0 PROTEINURIA 03/31/2010 CARREON DO CORTEZ K 627.1 Postmenopausal Bleeding 03/31/2010 627.1 Postmenopausal Bleeding 03/31/2010 CARREON DO CORTEZ K 627.1 Postmenopausal Bleeding 03/31/2010 CARREON BERT HERNADEZA K 627.1 Postmenopausal Bleeding 03/31/2010 MORAIMA LOYA APRN 627.1 Postmenopausal Bleeding 03/31/2010 LYNDSAY RASHEED MD 627.1 Postmenopausal Bleeding 03/31/2010 MORAIMA LOYA APRN 627.1 Postmenopausal Bleeding 03/31/2010 627.1 Postmenopausal Bleeding 03/31/2010 MORAIMA LOYA APRN 627.1 Postmenopausal Bleeding 03/31/2010 MORAIMA LOYA APRN 627.1 Postmenopausal Bleeding 03/31/2010 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, TEQUILA 627.1 Postmenopausal Bleeding 03/31/2010 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, TEQUILA 627.1 Postmenopausal Bleeding 03/31/2010 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, TEQUILA 627.1 Postmenopausal Bleeding 03/31/2010 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, TEQUILA 627.1 Postmenopausal Bleeding 03/31/2010 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, TEQUILA 627.1 Postmenopausal Bleeding 03/31/2010 JAYCOB SNOWDEN APRNA S 627.1 Postmenopausal Bleeding 03/31/2010 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, TEQUILA 627.1 Postmenopausal Bleeding 03/31/2010 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, TEQUILA 627.1 Postmenopausal Bleeding 03/31/2010 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, TEQUILA 627.1 Postmenopausal Bleeding 03/31/2010 JAYCOB SNOWDEN APRNA S 627.1 Postmenopausal Bleeding 03/31/2010 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, TEQUILA 627.1 Postmenopausal Bleeding 04/21/2010 CARREON BERT HERNADEZA K 486 Pneumonia 04/21/2010 486 Pneumonia 04/21/2010 CARREON DOCORTEZ K 486 Pneumonia 04/21/2010 CARREON DO, CORTEZ K 486 Pneumonia 04/21/2010 MORAIMA LOYA APRN 486 Pneumonia 04/21/2010 LYNDSAY RASHEED MD 486 Pneumonia 04/21/2010 SHALINI CURTAIN CUTTER HAND, MORAIMA Rivera 486 Pneumonia 04/21/2010 486 Pneumonia 04/21/2010 SHALINI CURTAIN CUTTER HAND, MORAIMA Rivera 486 Pneumonia 04/21/2010 SHALINI CURTAIN CUTTER HAND, MORAIMA Rivera 486 Pneumonia 04/21/2010 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, TEQUILA 486 Pneumonia 04/21/2010 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, TEQUILA 486 Pneumonia 04/21/2010 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, TEQUILA 486 Pneumonia 04/21/2010 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, TEQUILA 486 Pneumonia 04/21/2010 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, TEQUILA 486 Pneumonia 04/21/2010 SP CURTAIN CUTTER HAND, TREVER S 486 Pneumonia 04/21/2010 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, TEQUILA 486 Pneumonia 04/21/2010 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, TEQUILA 486 Pneumonia 04/21/2010 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, TEQUILA 486 Pneumonia 04/21/2010 SP CURTAIN CUTTER HAND, TREVER S 486 Pneumonia 04/21/2010 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, TEQUILA 486 Pneumonia 05/07/2010 CORTEZ CARREON DO K 079.4 HUMAN PAPILLOMA VIRUS INFECTION 05/07/2010 CORTEZ CARREON DO K 616.10 Vaginitis Vulvovaginitis Unspecified 05/07/2010 079.4 HUMAN PAPILLOMA VIRUS INFECTION 05/07/2010 616.10 Vaginitis Vulvovaginitis Unspecified 05/07/2010 CORTEZ CARREON DO K 079.4 HUMAN PAPILLOMA VIRUS INFECTION 05/07/2010 CARREON CORTEZ HERNADEZ K 616.10 Vaginitis Vulvovaginitis Unspecified 05/07/2010 CORTEZ CARREON DO K 079.4 HUMAN PAPILLOMA VIRUS INFECTION 05/07/2010 CARREON CORTEZ HERNADEZ K 616.10 Vaginitis Vulvovaginitis Unspecified 05/07/2010 MORAIMA LOYA APRN 079.4 HUMAN PAPILLOMA VIRUS INFECTION 05/07/2010 MORAIMA LOYA APRN 616.10 Vaginitis Vulvovaginitis Unspecified 05/07/2010 LYNDSAY RASHEED MD 079.4 HUMAN PAPILLOMA VIRUS INFECTION 05/07/2010 LYNDSAY RASHEED MD 616.10 Vaginitis Vulvovaginitis Unspecified 05/07/2010 MORAIMA LOYA APRN 079.4 HUMAN PAPILLOMA VIRUS INFECTION 05/07/2010 MORAIMA LOYA APRN 616.10 Vaginitis Vulvovaginitis Unspecified 05/07/2010 079.4 HUMAN PAPILLOMA VIRUS INFECTION 05/07/2010 616.10 Vaginitis Vulvovaginitis Unspecified 05/07/2010 MORAIMA LOYA APRN 079.4 HUMAN PAPILLOMA VIRUS INFECTION 05/07/2010 MORAIMA LOYA APRN 616.10 Vaginitis Vulvovaginitis Unspecified 05/07/2010 MORAIMA LOYA APRN 079.4 HUMAN PAPILLOMA VIRUS INFECTION 05/07/2010 MORAIMA LOYA APRN 616.10 Vaginitis Vulvovaginitis Unspecified 05/07/2010 IVÁN HARRIS, TEQUILA 079.4 HUMAN PAPILLOMA VIRUS INFECTION 05/07/2010 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, TEQUILA 616.10 Vaginitis Vulvovaginitis Unspecified 05/07/2010 IVÁN HARRIS TEQUILA 079.4 HUMAN PAPILLOMA VIRUS INFECTION 05/07/2010 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, TEQUILA 616.10 Vaginitis Vulvovaginitis Unspecified 05/07/2010 IVÁN HARRIS TEQUILA 079.4 HUMAN PAPILLOMA VIRUS INFECTION 05/07/2010 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, TEQUILA 616.10 Vaginitis Vulvovaginitis Unspecified 05/07/2010 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, TEQUILA 079.4 HUMAN PAPILLOMA VIRUS INFECTION 05/07/2010 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, TEQUILA 616.10 Vaginitis Vulvovaginitis Unspecified 05/07/2010 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, TEQUILA 079.4 HUMAN PAPILLOMA VIRUS INFECTION 05/07/2010 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, TEQUILA 616.10 Vaginitis Vulvovaginitis Unspecified 05/07/2010 TREVER SNOWDEN APRN 079.4 HUMAN PAPILLOMA VIRUS INFECTION 05/07/2010 SP CURTAIN CUTTER HAND, TREVER S 616.10 Vaginitis Vulvovaginitis Unspecified 05/07/2010 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, TEQUILA 079.4 HUMAN PAPILLOMA VIRUS INFECTION 05/07/2010 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, TEQUILA 616.10 Vaginitis Vulvovaginitis Unspecified 05/07/2010 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, TEQUILA 079.4 HUMAN PAPILLOMA VIRUS INFECTION 05/07/2010 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, TEQUILA 616.10 Vaginitis Vulvovaginitis Unspecified 05/07/2010 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, TEQUILA 079.4 HUMAN PAPILLOMA VIRUS INFECTION 05/07/2010 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, TEQUILA 616.10 Vaginitis Vulvovaginitis Unspecified 05/07/2010 SP CURTAIN CUTTER HAND, TREVER S 079.4 HUMAN PAPILLOMA VIRUS INFECTION 05/07/2010 SP CURTAIN CUTTER HAND, TREVER S 616.10 Vaginitis Vulvovaginitis Unspecified 05/07/2010 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, TEQUILA 079.4 HUMAN PAPILLOMA VIRUS INFECTION 05/07/2010 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, TEQUILA 616.10 Vaginitis Vulvovaginitis Unspecified 06/04/2010 BERT CARREON DOA K 466.0 Bronchitis, Acute 06/04/2010 BERT CARREON DOA K 622.11 CERVICAL DYSPLASIA: MILD 06/04/2010 466.0 Bronchitis, Acute 06/04/2010 622.11 CERVICAL DYSPLASIA: MILD 06/04/2010 LAURI HERNADEZ CORTEZ K 466.0 Bronchitis, Acute 06/04/2010 BERT CARREON DOA K 622.11 CERVICAL DYSPLASIA: MILD 06/04/2010 LAURI HERNADEZ CORTEZ K 466.0 Bronchitis, Acute 06/04/2010 BERT CARREON DOA K 622.11 CERVICAL DYSPLASIA: MILD 06/04/2010 MORAIMA LOYA APRN 466.0 Bronchitis, Acute 06/04/2010 MORAIMA LOYA APRN 622.11 CERVICAL DYSPLASIA: MILD 06/04/2010 LYNDSAY RASHEED MD 466.0 Bronchitis, Acute 06/04/2010 LYNDSAY RASHEED MD 622.11 CERVICAL DYSPLASIA: MILD 06/04/2010 MORAIMA LOYA APRN 466.0 Bronchitis, Acute 06/04/2010 SHALINI DASHMORAIMA Sims D 622.11 CERVICAL DYSPLASIA: MILD 06/04/2010 466.0 Bronchitis, Acute 06/04/2010 622.11 CERVICAL DYSPLASIA: MILD 06/04/2010 [facility] CURTAIN CUTTER HANDMORAIMA Sims 466.0 Bronchitis, Acute 06/04/2010 [facility] CURTAIN CUTTER HAND, MORAIMA D 622.11 CERVICAL DYSPLASIA: MILD 06/04/2010 [facility] CURTAIN CUTTER HANDMORAIMA 466.0 Bronchitis, Acute 06/04/2010 [facility] CURTAIN CUTTER HAND, MORAIMA D 622.11 CERVICAL DYSPLASIA: MILD 06/04/2010 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, TEQUILA 466.0 Bronchitis, Acute 06/04/2010 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, TEQUILA 622.11 CERVICAL DYSPLASIA: MILD 06/04/2010 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, TEQUILA 466.0 Bronchitis, Acute 06/04/2010 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, TEQUILA 622.11 CERVICAL DYSPLASIA: MILD 06/04/2010 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, TEQUILA 466.0 Bronchitis, Acute 06/04/2010 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, TEQUILA 622.11 CERVICAL DYSPLASIA: MILD 06/04/2010 IÁVN CURTAIN CUTTER HAND, TEQUILA 466.0 Bronchitis, Acute 06/04/2010 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, TEQUILA 622.11 CERVICAL DYSPLASIA: MILD 06/04/2010 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, TEQUILA 466.0 Bronchitis, Acute 06/04/2010 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, TEQUILA 622.11 CERVICAL DYSPLASIA: MILD 06/04/2010 SP CURTAIN CUTTER HAND, TREVER S 466.0 Bronchitis, Acute 06/04/2010 SP CURTAIN CUTTER HAND, TERVER S 622.11 CERVICAL DYSPLASIA: MILD 06/04/2010 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, TEQUILA 466.0 Bronchitis, Acute 06/04/2010 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, TEQUILA 622.11 CERVICAL DYSPLASIA: MILD 06/04/2010 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, TEQUILA 466.0 Bronchitis, Acute 06/04/2010 IVÁN CURTAIN CUTTER HAND, TEQUILA 622.11 CERVICAL DYSPLASIA: MILD 06/04/2010 IVÁN CURTAIN CUTTER HAND, TEQUILA 466.0 Bronchitis, Acute 06/04/2010 IVÁN CURTAIN CUTTER HAND, TEQUILA 622.11 CERVICAL DYSPLASIA: MILD 06/04/2010 SP CURTAIN CUTTER HAND, TREVER S 466.0 Bronchitis, Acute 06/04/2010 TREVER SNOWDEN APRN 622.11 CERVICAL DYSPLASIA: MILD 06/04/2010 TEQUILA MINOR APRN 466.0 Bronchitis, Acute 06/04/2010 TEQUILA MINOR APRN 622.11 CERVICAL DYSPLASIA: MILD 06/30/2010 CORTEZ CARREON DO K 305.1 NICOTINE DEPENDENCE 06/30/2010 BERT CARREON DOA K 493.90 ASTHMA 06/30/2010 BERT CARREON DOA K V58.69 taking high-risk medication 06/30/2010 305.1 NICOTINE DEPENDENCE 06/30/2010 493.90 ASTHMA 06/30/2010 V58.69 taking high-risk medication 06/30/2010 CARREON BERT HERNDAEZA K 305.1 NICOTINE DEPENDENCE 06/30/2010 BERT CARREON DOA K 493.90 ASTHMA 06/30/2010 BERT CARREON DOA K V58.69 taking high-risk medication 06/30/2010 BERT CARREON DOA K 305.1 NICOTINE DEPENDENCE 06/30/2010 BERT CARREON DOA K 493.90 ASTHMA 06/30/2010 BERT CARREON DOA K V58.69 taking high-risk medication 06/30/2010 MORAIMA LOYA APRN 305.1 NICOTINE DEPENDENCE 06/30/2010 MORAIMA LOYA APRN 493.90 ASTHMA 06/30/2010 MORAIMA LOYA APRN V58.69 taking high-risk medication 06/30/2010 LYNDSAY RASHEED MD 305.1 NICOTINE DEPENDENCE 06/30/2010 LYNDSAY RASHEED MD 493.90 ASTHMA 06/30/2010 LYNDSAY RASHEED MD V58.69 taking high-risk medication 06/30/2010 MORAIMA LOYA APRN 305.1 NICOTINE DEPENDENCE 06/30/2010 MORAIMA LOYA APRN 493.90 ASTHMA 06/30/2010 MORAIMA LOYA APRN V58.69 taking high-risk medication 06/30/2010 305.1 NICOTINE DEPENDENCE 06/30/2010 493.90 ASTHMA 06/30/2010 V58.69 taking high-risk medication 06/30/2010 MORAIMA LOYA APRN 305.1 NICOTINE DEPENDENCE 06/30/2010 MORAIMA LOYA APRN 493.90 ASTHMA 06/30/2010 MORAIMA LOYA APRN V58.69 taking high-risk medication 06/30/2010 MORAIMA LOYA APRN 305.1 NICOTINE DEPENDENCE 06/30/2010 MORAIMA LOYA APRN 493.90 ASTHMA 06/30/2010 MORAIMA LOYA APRN V58.69 taking high-risk medication 06/30/2010 IVÁN CURTAIN CUTTER HAND, TEQUILA 305.1 NICOTINE DEPENDENCE 06/30/2010 IVÁN CURTAIN CUTTER HAND, TEQUILA 493.90 ASTHMA 06/30/2010 IVÁN CURTAIN CUTTER HAND, TEQUILA V58.69 taking high-risk medication 06/30/2010 IVÁN CURTAIN CUTTER HAND, TEQUILA 305.1 NICOTINE DEPENDENCE 06/30/2010 IVÁN CURTAIN CUTTER HAND, TEQUILA 493.90 ASTHMA 06/30/2010 IVÁN CURTAIN CUTTER HAND, TEQUILA V58.69 taking high-risk medication 06/30/2010 IVÁN CURTAIN CUTTER HAND, TEQUILA 305.1 NICOTINE DEPENDENCE 06/30/2010 IVÁN CURTAIN CUTTER HAND, TEQUILA 493.90 ASTHMA 06/30/2010 IVÁN CURTAIN CUTTER HAND, TEQUILA V58.69 taking high-risk medication 06/30/2010 IVÁN CURTAIN CUTTER HAND, TEQUILA 305.1 NICOTINE DEPENDENCE 06/30/2010 IVÁN CURTAIN CUTTER HAND, TEQUILA 493.90 ASTHMA 06/30/2010 IVÁN CURTAIN CUTTER HAND, TEQUILA V58.69 taking high-risk medication 06/30/2010 IVÁN CURTAIN CUTTER HAND, TEQUILA 305.1 NICOTINE DEPENDENCE 06/30/2010 IVÁN CURTAIN CUTTER HAND, TEQUILA 493.90 ASTHMA 06/30/2010 IVÁN CURTAIN CUTTER HAND, TEQUILA V58.69 taking high-risk medication 06/30/2010 SP CURTAIN CUTTER HAND, TREVER S 305.1 NICOTINE DEPENDENCE 06/30/2010 SP CURTAIN CUTTER HAND, TREVER S 493.90 ASTHMA 06/30/2010 SP CURTAIN CUTTER HAND, TREVER S V58.69 taking high-risk medication 06/30/2010 IVÁN CURTAIN CUTTER HAND, TEQUILA 305.1 NICOTINE DEPENDENCE 06/30/2010 IVÁN CURTAIN CUTTER HAND, TEQUILA 493.90 ASTHMA 06/30/2010 IVÁN CURTAIN CUTTER HAND, TEQUILA V58.69 taking high-risk medication 06/30/2010 IVÁN CURTAIN CUTTER HAND, TEQUILA 305.1 NICOTINE DEPENDENCE 06/30/2010 IVÁN CURTAIN CUTTER HAND, TEQUILA 493.90 ASTHMA 06/30/2010 IVÁN CURTAIN CUTTER HAND, TEQUILA V58.69 taking high-risk medication 06/30/2010 IVÁN CURTAIN CUTTER HAND, TEQUILA 305.1 NICOTINE DEPENDENCE 06/30/2010 IVÁN CURTAIN CUTTER HAND, TEQUILA 493.90 ASTHMA 06/30/2010 IVÁN CURTAIN CUTTER HAND, TEQUILA V58.69 taking high-risk medication 06/30/2010 SP CURTAIN CUTTER HAND, TREVER S 305.1 NICOTINE DEPENDENCE 06/30/2010 SP CURTAIN CUTTER HAND, TREVER S 493.90 ASTHMA 06/30/2010 SP CURTAIN CUTTER HAND, TREVER S V58.69 taking high-risk medication 06/30/2010 IVÁN CURTAIN CUTTER HAND, TEQUILA 305.1 NICOTINE DEPENDENCE 06/30/2010 IVÁN CURTAIN CUTTER HAND, TEQUILA 493.90 ASTHMA 06/30/2010 IVÁN CURTAIN CUTTER HAND, TEQUILA V58.69 taking high-risk medication 11/21/2010 CORTEZ CARREON DO K 491.21 Bronchitis Aecb 11/21/2010 BERT CARREON DOA K 784.0 Headache 11/21/2010 491.21 Bronchitis Aecb 11/21/2010 784.0 Headache 11/21/2010 BERT CARREON DOA K 491.21 Bronchitis Aecb 11/21/2010 BERT CARREON DOA K 784.0 Headache 11/21/2010 EBRT CARREON DOA K 491.21 Bronchitis Aecb 11/21/2010 BERT CARREON DOA K 784.0 Headache 11/21/2010 MORAIMA LOYA APRN 491.21 Bronchitis Aecb 11/21/2010 MORAIMA LOYA APRN 784.0 Headache 11/21/2010 LYNDSAY RASHEED MD 491.21 Bronchitis Aecb 11/21/2010 LYNDSAY RASHEED MD 784.0 Headache 11/21/2010 MORAIMA LOYA APRN 491.21 Bronchitis Aecb 11/21/2010 MORAIMA LOYA APRN 784.0 Headache 11/21/2010 491.21 Bronchitis Aecb 11/21/2010 784.0 Headache 11/21/2010 MORAIMA LOYA APRN 491.21 Bronchitis Aecb 11/21/2010 MORAIMA LOYA APRN 784.0 Headache 11/21/2010 MORAIMA LOYA APRN 491.21 Bronchitis Aecb 11/21/2010 MORAIMA LOYA APRN 784.0 Headache 11/21/2010 IVÁN CURTAIN CUTTER HAND, TEQUILA 491.21 Bronchitis Aecb 11/21/2010 IVÁN CURTAIN CUTTER HAND, TEQUILA 784.0 Headache 11/21/2010 IVÁN CURTAIN CUTTER HAND, TEQUILA 491.21 Bronchitis Aecb 11/21/2010 IVÁN CURTAIN CUTTER HAND, TEQUILA 784.0 Headache 11/21/2010 IVÁN CURTAIN CUTTER HAND, TEQUILA 491.21 Bronchitis Aecb 11/21/2010 IVÁN CURTAIN CUTTER HAND, TEQULIA 784.0 Headache 11/21/2010 IVÁN CURTAIN CUTTER HAND, TEQUILA 491.21 Bronchitis Aecb 11/21/2010 IVÁN CURTAIN CUTTER HAND, TEQUILA 784.0 Headache 11/21/2010 IVÁN CURTAIN CUTTER HAND, TEQUILA 491.21 Bronchitis Aecb 11/21/2010 IVÁN CURTAIN CUTTER HAND, TEQUILA 784.0 Headache 11/21/2010 SP CURTAIN CUTTER HAND, TREVER S 491.21 Bronchitis Aecb 11/21/2010 SP CURTAIN CUTTER HAND, TREVER S 784.0 Headache 11/21/2010 IVÁN CURTAIN CUTTER HAND, TEQUILA 491.21 Bronchitis Aecb 11/21/2010 IVÁN CURTAIN CUTTER HAND, TEQUILA 784.0 Headache 11/21/2010 IVÁN CURTAIN CUTTER HAND, TEQUILA 491.21 Bronchitis Aecb 11/21/2010 IVÁN CURTAIN CUTTER HAND, TEQUILA 784.0 Headache 11/21/2010 IVÁN CURTAIN CUTTER HAND, TEQUILA 491.21 Bronchitis Aecb 11/21/2010 IVÁN CURTAIN CUTTER HAND, TEQUILA 784.0 Headache 11/21/2010 SP CURTAIN CUTTER HAND, TREVER S 491.21 Bronchitis Aecb 11/21/2010 SP CURTAIN CUTTER HAND, TREVER S 784.0 Headache 11/21/2010 IVÁN CURTAIN CUTTER HAND, TEQUILA 491.21 Bronchitis Aecb 11/21/2010 IVÁN CURTAIN CUTTER HAND, TEQUILA 784.0 Headache 12/16/2010 CORTEZ CARREON DO 530.81 ESOPHAGEAL REFLUX 12/16/2010 CORTEZ CARREON DO 786.50 Chest Pain Or Discomfort 12/16/2010 CARREON DO, CORTEZ K 790.29 PREDIABETES (IMPAIRED GLUCOSE TOLERANCE) 12/16/2010 CARREON DO CORTEZ K V76.10 Visit For: Screening Exam Malignant Neoplasm Breast 12/16/2010 530.81 ESOPHAGEAL REFLUX 12/16/2010 786.50 Chest Pain Or Discomfort 12/16/2010 790.29 PREDIABETES (IMPAIRED GLUCOSE TOLERANCE) 12/16/2010 V76.10 Visit For: Screening Exam Malignant Neoplasm Breast 12/16/2010 CARREON DO CORTEZ K 530.81 ESOPHAGEAL REFLUX 12/16/2010 CARREON DO CORTEZ K 786.50 Chest Pain Or Discomfort 12/16/2010 CARREON DO, CORTEZ K 790.29 PREDIABETES (IMPAIRED GLUCOSE TOLERANCE) 12/16/2010 CARREON DO CORTEZ K V76.10 Visit For: Screening Exam Malignant Neoplasm Breast 12/16/2010 CARREON DO CORTEZ K 530.81 ESOPHAGEAL REFLUX 12/16/2010 CARREON DO CORTEZ K 786.50 Chest Pain Or Discomfort 12/16/2010 CARREON DO CORTEZ K 790.29 PREDIABETES (IMPAIRED GLUCOSE TOLERANCE) 12/16/2010 CARREON DO CORTEZ K V76.10 Visit For: Screening Exam Malignant Neoplasm Breast 12/16/2010 MORAIMA LOYA APRN 530.81 ESOPHAGEAL REFLUX 12/16/2010 MORAIMA LOYA APRN 786.50 Chest Pain Or Discomfort 12/16/2010 MORAIMA LOYA APRN 790.29 PREDIABETES (IMPAIRED GLUCOSE TOLERANCE) 12/16/2010 MORAIMA LOYA APRN V76.10 Visit For: Screening Exam Malignant Neoplasm Breast 12/16/2010 LYNDSAY RASHEED MD 530.81 ESOPHAGEAL REFLUX 12/16/2010 LYNDSAY RASHEED MD 786.50 Chest Pain Or Discomfort 12/16/2010 LYNDSAY RASHEED MD 790.29 PREDIABETES (IMPAIRED GLUCOSE TOLERANCE) 12/16/2010 LYNDSAY RASHEED MD V76.10 Visit For: Screening Exam Malignant Neoplasm Breast 12/16/2010 MORAIMA LOYA APRN 530.81 ESOPHAGEAL REFLUX 12/16/2010 MORAIMA LOYA APRN 786.50 Chest Pain Or Discomfort 12/16/2010 MORAIMA LOYA APRN 790.29 PREDIABETES (IMPAIRED GLUCOSE TOLERANCE) 12/16/2010 MORAIMA LOYA APRN V76.10 Visit For: Screening Exam Malignant Neoplasm Breast 12/16/2010 530.81 ESOPHAGEAL REFLUX 12/16/2010 786.50 Chest Pain Or Discomfort 12/16/2010 790.29 PREDIABETES (IMPAIRED GLUCOSE TOLERANCE) 12/16/2010 V76.10 Visit For: Screening Exam Malignant Neoplasm Breast 12/16/2010 MINNIE LOYA APRNBETH D 530.81 ESOPHAGEAL REFLUX 12/16/2010 MINNIE LOYA APRNBETH D 786.50 Chest Pain Or Discomfort 12/16/2010 MINNIE LOYA APRNBETH D 790.29 PREDIABETES (IMPAIRED GLUCOSE TOLERANCE) 12/16/2010 MINNIE LOYA APRNBETH D V76.10 Visit For: Screening Exam Malignant Neoplasm Breast 12/16/2010 MINNIE LOYA APRNBETH D 530.81 ESOPHAGEAL REFLUX 12/16/2010 MINNIE LOYA APRNBETH D 786.50 Chest Pain Or Discomfort 12/16/2010 MINNIE LOYA APRNBETH D 790.29 PREDIABETES (IMPAIRED GLUCOSE TOLERANCE) 12/16/2010 MINNIE LOYA APRNBETH D V76.10 Visit For: Screening Exam Malignant Neoplasm Breast 12/16/2010 IVÁN CURTAIN CUTTER HAND, TEQUILA 530.81 ESOPHAGEAL REFLUX 12/16/2010 IVÁN CURTAIN CUTTER HAND, TEQUILA 786.50 Chest Pain Or Discomfort 12/16/2010 IVÁN CURTAIN CUTTER HAND, TEQUILA 790.29 PREDIABETES (IMPAIRED GLUCOSE TOLERANCE) 12/16/2010 IVÁN HARRIS TEQUILA V76.10 Visit For: Screening Exam Malignant Neoplasm Breast 12/16/2010 IVÁN CURTAIN CUTTER HAND, TEQUILA 530.81 ESOPHAGEAL REFLUX 12/16/2010 IVÁN CURTAIN CUTTER HAND, TEQUILA 786.50 Chest Pain Or Discomfort 12/16/2010 IVÁN CURTAIN CUTTER HAND, TEQUILA 790.29 PREDIABETES (IMPAIRED GLUCOSE TOLERANCE) 12/16/2010 IVÁN CURTAIN CUTTER HAND, TEQUILA V76.10 Visit For: Screening Exam Malignant Neoplasm Breast 12/16/2010 IVÁN CURTAIN CUTTER HAND, TEQUILA 530.81 ESOPHAGEAL REFLUX 12/16/2010 IVÁN CURTAIN CUTTER HAND, TEQUILA 786.50 Chest Pain Or Discomfort 12/16/2010 IVÁN CURTAIN CUTTER HAND, TEQUILA 790.29 PREDIABETES (IMPAIRED GLUCOSE TOLERANCE) 12/16/2010 IVÁN CURTAIN CUTTER HAND, TEQUILA V76.10 Visit For: Screening Exam Malignant Neoplasm Breast 12/16/2010 IVÁN CURTAIN CUTTER HAND, TEQUILA 530.81 ESOPHAGEAL REFLUX 12/16/2010 IVÁN CURTAIN CUTTER HAND, TEQUILA 786.50 Chest Pain Or Discomfort 12/16/2010 IVÁN CURTAIN CUTTER HAND, TEQUILA 790.29 PREDIABETES (IMPAIRED GLUCOSE TOLERANCE) 12/16/2010 IVÁN CURTAIN CUTTER HAND, TEQUILA V76.10 Visit For: Screening Exam Malignant Neoplasm Breast 12/16/2010 IVÁN CURTAIN CUTTER HAND, TEQUILA 530.81 ESOPHAGEAL REFLUX 12/16/2010 IVÁN CURTAIN CUTTER HAND, TEQUILA 786.50 Chest Pain Or Discomfort 12/16/2010 IVÁN CURTAIN CUTTER HAND, TEQUILA 790.29 PREDIABETES (IMPAIRED GLUCOSE TOLERANCE) 12/16/2010 IVÁN CURTAIN CUTTER HAND, TEQUILA V76.10 Visit For: Screening Exam Malignant Neoplasm Breast 12/16/2010 SP CURTAIN CUTTER HAND, TREVER S 530.81 ESOPHAGEAL REFLUX 12/16/2010 SP CURTAIN CUTTER HAND, TREVER S 786.50 Chest Pain Or Discomfort 12/16/2010 SP CURTAIN CUTTER HAND, TREVER S 790.29 PREDIABETES (IMPAIRED GLUCOSE TOLERANCE ) 12/16/2010 SP CURTAIN CUTTER HAND, TREVER S V76.10 Visit For: Screening Exam Malignant Neoplasm Breast 12/16/2010 IVÁN CURTAIN CUTTER HAND, TEQUILA 530.81 ESOPHAGEAL REFLUX 12/16/2010 IVÁN CURTAIN CUTTER HAND, TEQUILA 786.50 Chest Pain Or Discomfort 12/16/2010 IVÁN CURTAIN CUTTER HAND, TEQUILA 790.29 PREDIABETES (IMPAIRED GLUCOSE TOLERANCE) 12/16/2010 IVÁN CURTAIN CUTTER HAND, TEQUILA V76.10 Visit For: Screening Exam Malignant Neoplasm Breast 12/16/2010 IVÁN CURTAIN CUTTER HAND, TEQUILA 530.81 ESOPHAGEAL REFLUX 12/16/2010 IVÁN CURTAIN CUTTER HAND, TEQUILA 786.50 Chest Pain Or Discomfort 12/16/2010 IVÁN CURTAIN CUTTER HAND, TEQUILA 790.29 PREDIABETES (IMPAIRED GLUCOSE TOLERANCE) 12/16/2010 IVÁN CURTAIN CUTTER HAND, TEQUILA V76.10 Visit For: Screening Exam Malignant Neoplasm Breast 12/16/2010 IVÁN CURTAIN CUTTER HAND, TEQUILA 530.81 ESOPHAGEAL REFLUX 12/16/2010 IVÁN CURTAIN CUTTER HAND, TEQUILA 786.50 Chest Pain Or Discomfort 12/16/2010 IVÁN CURTAIN CUTTER HAND, TEQUILA 790.29 PREDIABETES (IMPAIRED GLUCOSE TOLERANCE) 12/16/2010 IVÁN CURTAIN CUTTER HAND, TEQUILA V76.10 Visit For: Screening Exam Malignant Neoplasm Breast 12/16/2010 SP CURTAIN CUTTER HAND, TREVER S 530.81 ESOPHAGEAL REFLUX 12/16/2010 SP CURTAIN CUTTER HAND, TREVER S 786.50 Chest Pain Or Discomfort 12/16/2010 SP CURTAIN CUTTER HAND, TREVER S 790.29 PREDIABETES (IMPAIRED GLUCOSE TOLERANCE ) 12/16/2010 SP CURTAIN CUTTER HAND, TREVER S V76.10 Visit For: Screening Exam Malignant Neoplasm Breast 12/16/2010 IVÁN CURTAIN CUTTER HAND, TEQUILA 530.81 ESOPHAGEAL REFLUX 12/16/2010 IVÁN CURTAIN CUTTER HAND, TEQUILA 786.50 Chest Pain Or Discomfort 12/16/2010 IVÁN CURTAIN CUTTER HAND, TEQUILA 790.29 PREDIABETES (IMPAIRED GLUCOSE TOLERANCE) 12/16/2010 IVÁN CURTAIN CUTTER HAND, TEQUILA V76.10 Visit For: Screening Exam Malignant Neoplasm Breast 01/19/2011 CARREON DO, CORTEZ K 414.00 CORONARY ARTERY DISEASE 01/19/2011 CARREON DO, CORTEZ K 466.0 Acute Bronchitis 01/19/2011 CARREON DO, CORTEZ K 786.2 Cough 01/19/2011 414.00 CORONARY ARTERY DISEASE 01/19/2011 466.0 Acute Bronchitis 01/19/2011 786.2 Cough 01/19/2011 CARREON DO, CORTEZ K 414.00 CORONARY ARTERY DISEASE 01/19/2011 CARREON DO, CORTEZ K 466.0 Acute Bronchitis 01/19/2011 CARREON DO, CORTEZ K 786.2 Cough 01/19/2011 CARREON DO, CORTEZ K 414.00 CORONARY ARTERY DISEASE 01/19/2011 CARREON DO, CORTEZ K 466.0 Acute Bronchitis 01/19/2011 CARREON DO, CORTEZ K 786.2 Cough 01/19/2011 MORAIMA LOYA APRN 414.00 CORONARY ARTERY DISEASE 01/19/2011 MORAIMA LOYA APRN 466.0 Acute Bronchitis 01/19/2011 MORAIMA LOYA APRN 786.2 Cough 01/19/2011 LYDNSAY RASHEED MD 414.00 CORONARY ARTERY DISEASE 01/19/2011 LYNDSAY RASHEED MD 466.0 Acute Bronchitis 01/19/2011 LYNDSAY RASHEED MD 786.2 Cough 01/19/2011 MORAIMA LOYA APRN 414.00 CORONARY ARTERY DISEASE 01/19/2011 MORAIMA LOYA APRN 466.0 Acute Bronchitis 01/19/2011 MORAIMA LOYA APRN 786.2 Cough 01/19/2011 414.00 CORONARY ARTERY DISEASE 01/19/2011 466.0 Acute Bronchitis 01/19/2011 786.2 Cough 01/19/2011 MORAIMA LOYA APRN 414.00 CORONARY ARTERY DISEASE 01/19/2011 MORAIMA LOYA APRN 466.0 Acute Bronchitis 01/19/2011 MORAIMA LOYA APRN 786.2 Cough 01/19/2011 MORAIMA LOYA APRN 414.00 CORONARY ARTERY DISEASE 01/19/2011 MORAIMA LOYA APRN 466.0 Acute Bronchitis 01/19/2011 MORAIMA LOYA APRN 786.2 Cough 01/19/2011 IVÁN CURTAIN CUTTER HAND, TEQUILA 414.00 CORONARY ARTERY DISEASE 01/19/2011 IVÁN CURTAIN CUTTER HAND, TEQUILA 466.0 Acute Bronchitis 01/19/2011 IVÁN CURTAIN CUTTER HAND, TEQUILA 786.2 Cough 01/19/2011 IVÁN CURTAIN CUTTER HAND, TEQUILA 414.00 CORONARY ARTERY DISEASE 01/19/2011 IVÁN CURTAIN CUTTER HAND, TEQUILA 466.0 Acute Bronchitis 01/19/2011 IVÁN CURTAIN CUTTER HAND, TEQUILA 786.2 Cough 01/19/2011 IVÁN CURTAIN CUTTER HAND, TEQUILA 414.00 CORONARY ARTERY DISEASE 01/19/2011 IVÁN CURTAIN CUTTER HAND, TEQUILA 466.0 Acute Bronchitis 01/19/2011 IVÁN CURTAIN CUTTER HAND, TEQUILA 786.2 Cough 01/19/2011 IVÁN CURTAIN CUTTER HAND, TEQUILA 414.00 CORONARY ARTERY DISEASE 01/19/2011 IVÁN CURTAIN CUTTER HAND, TEQUILA 466.0 Acute Bronchitis 01/19/2011 IVÁN CURTAIN CUTTER HAND, TEQUILA 786.2 Cough 01/19/2011 IVÁN CURTAIN CUTTER HAND, TEQUILA 414.00 CORONARY ARTERY DISEASE 01/19/2011 IVÁN CURTAIN CUTTER HAND, TEQUILA 466.0 Acute Bronchitis 01/19/2011 IVÁN CURTAIN CUTTER HAND, TEQUILA 786.2 Cough 01/19/2011 SP CURTAIN CUTTER HAND, TREVER S 414.00 CORONARY ARTERY DISEASE 01/19/2011 SP CURTAIN CUTTER HAND, TREVER S 466.0 Acute Bronchitis 01/19/2011 SP CURTAIN CUTTER HAND, TREVER S 786.2 Cough 01/19/2011 IVÁN CURTAIN CUTTER HAND, TEQUILA 414.00 CORONARY ARTERY DISEASE 01/19/2011 IVÁN CURTAIN CUTTER HAND, TEQUILA 466.0 Acute Bronchitis 01/19/2011 IVÁN CURTAIN CUTTER HAND, TEQUILA 786.2 Cough 01/19/2011 IVÁN CURTAIN CUTTER HAND, TEQUILA 414.00 CORONARY ARTERY DISEASE 01/19/2011 IVÁN CURTAIN CUTTER HAND, TEQUILA 466.0 Acute Bronchitis 01/19/2011 IVÁN CURTAIN CUTTER HAND, TEQUILA 786.2 Cough 01/19/2011 IVÁN CURTAIN CUTTER HAND, TEQUILA 414.00 CORONARY ARTERY DISEASE 01/19/2011 IVÁN CURTAIN CUTTER HAND, TEQUILA 466.0 Acute Bronchitis 01/19/2011 IVÁN CURTAIN CUTTER HAND, TEQUILA 786.2 Cough 01/19/2011 SP CURTAIN CUTTER HAND, TREVER S 414.00 CORONARY ARTERY DISEASE 01/19/2011 SP CURTAIN CUTTER HAND, TREVER S 466.0 Acute Bronchitis 01/19/2011 SP CURTAIN CUTTER HAND, TREVER S 786.2 Cough 01/19/2011 IVÁN CURTAIN CUTTER HAND, TEQUILA 414.00 CORONARY ARTERY DISEASE 01/19/2011 IVÁN CURTAIN CUTTER HAND, TEQUILA 466.0 Acute Bronchitis 01/19/2011 IVÁN CURTAIN CUTTER HAND, TEQUILA 786.2 Cough 03/11/2011 CORTEZ CARREON DO 787.02 Nausea Alone 03/11/2011 CORTEZ CARREON DO 789.03 Abdominal Pain Right Lower Quadrant 03/11/2011 787.02 Nausea Alone 03/11/2011 789.03 Abdominal Pain Right Lower Quadrant 03/11/2011 CORETZ CARREON DO 787.02 Nausea Alone 03/11/2011 CORTEZ CARREON DO K 789.03 Abdominal Pain Right Lower Quadrant 03/11/2011 CORTEZ CARREON DO K 787.02 Nausea Alone 03/11/2011 CORTEZ CARREON DO K 789.03 Abdominal Pain Right Lower Quadrant 03/11/2011 MORAIMA LOYA APRN 787.02 Nausea Alone 03/11/2011 MORAIMA LOYA APRN 789.03 Abdominal Pain Right Lower Quadrant 03/11/2011 LYNDSAY RASHEED MD 787.02 Nausea Alone 03/11/2011 LYNDSAY RASHEED MD 789.03 Abdominal Pain Right Lower Quadrant 03/11/2011 MORAIMA LOYA APRN 787.02 Nausea Alone 03/11/2011 MORAIMA LOYA APRN 789.03 Abdominal Pain Right Lower Quadrant 03/11/2011 787.02 Nausea Alone 03/11/2011 789.03 Abdominal Pain Right Lower Quadrant 03/11/2011 MORAIMA LOYA APRN 787.02 Nausea Alone 03/11/2011 MORAIMA LOYA APRN 789.03 Abdominal Pain Right Lower Quadrant 03/11/2011 MORAIMA LOYA APRN 787.02 Nausea Alone 03/11/2011 MORAIMA LOYA APRN 789.03 Abdominal Pain Right Lower Quadrant 03/11/2011 IVÁN KIMBERLY TEQUILA 787.02 Nausea Alone 03/11/2011 IVÁN KIMBERLY TEQUILA 789.03 Abdominal Pain Right Lower Quadrant 03/11/2011 IVÁN KIMBERLY TEQUILA 787.02 Nausea Alone 03/11/2011 IVÁN KIMBERLY TEQUILA 789.03 Abdominal Pain Right Lower Quadrant 03/11/2011 IVÁN CURTAIN CUTTER HAND, TEQUILA 787.02 Nausea Alone 03/11/2011 IVÁN CURTAIN CUTTER HAND, TEQUILA 789.03 Abdominal Pain Right Lower Quadrant 03/11/2011 IVÁN KIMBERLY TEQUILA 787.02 Nausea Alone 03/11/2011 IVÁN KIMBERLY TEQUILA 789.03 Abdominal Pain Right Lower Quadrant 03/11/2011 IVÁN CURTAIN CUTTER HAND, TEQUILA 787.02 Nausea Alone 03/11/2011 IVÁN CURTAIN CUTTER HAND, TEQUILA 789.03 Abdominal Pain Right Lower Quadrant 03/11/2011 TREVER SNOWDEN APRN S 787.02 Nausea Alone 03/11/2011 TREVER SNOWDEN APRN S 789.03 Abdominal Pain Right Lower Quadrant 03/11/2011 IVÁN CURTAIN CUTTER HAND, TEQUILA 787.02 Nausea Alone 03/11/2011 IVÁN CURTAIN CUTTER HAND, TEQUILA 789.03 Abdominal Pain Right Lower Quadrant 03/11/2011 IVÁN CURTAIN CUTTER HAND, TEQUILA 787.02 Nausea Alone 03/11/2011 IVÁN CURTAIN CUTTER HAND, TEQUILA 789.03 Abdominal Pain Right Lower Quadrant 03/11/2011 IVÁN CURTAIN CUTTER HAND, TEQUILA 787.02 Nausea Alone 03/11/2011 IVÁN CURTAIN CUTTER HAND, TEQUILA 789.03 Abdominal Pain Right Lower Quadrant 03/11/2011 SP CURTAIN CUTTER HAND, TREVER S 787.02 Nausea Alone 03/11/2011 SP CURTAIN CUTTER HAND, TREVER S 789.03 Abdominal Pain Right Lower Quadrant 03/11/2011 IVÁN CURTAIN CUTTER HAND, TEQUILA 787.02 Nausea Alone 03/11/2011 IVÁN CURTAIN CUTTER HAND, TEQUILA 789.03 Abdominal Pain Right Lower Quadrant 04/09/2011 CARREON DO, CORTEZ K 272.4 HYPERLIPIDEMIA 04/09/2011 CARREON DO, CORTEZ K 458.0 ORTHOSTATIC HYPOTENSION 04/09/2011 CARREON DO, CORTEZ K 571.8 FATTY LIVER 04/09/2011 CARREON DO, CORTEZ K 788.30 INCONTINENCE/ENURESIS NOS 04/09/2011 272.4 HYPERLIPIDEMIA 04/09/2011 458.0 ORTHOSTATIC HYPOTENSION 04/09/2011 571.8 FATTY LIVER 04/09/2011 788.30 INCONTINENCE/ENURESIS NOS 04/09/2011 CARREON DO, CORTEZ K 272.4 HYPERLIPIDEMIA 04/09/2011 CARREON DO, CORTEZ K 458.0 ORTHOSTATIC HYPOTENSION 04/09/2011 CARREON DO, CORTEZ K 571.8 FATTY LIVER 04/09/2011 CARREON DO, CORTEZ K 788.30 INCONTINENCE/ENURESIS NOS 04/09/2011 CARREON DO, CORTEZ K 272.4 HYPERLIPIDEMIA 04/09/2011 CARREON DO, CORTEZ K 458.0 ORTHOSTATIC HYPOTENSION 04/09/2011 CARREON DO, CORTEZ K 571.8 FATTY LIVER 04/09/2011 CARREON DO, CORTEZ K 788.30 INCONTINENCE/ENURESIS NOS 04/09/2011 MORAIMA LOYA APRN 272.4 HYPERLIPIDEMIA 04/09/2011 MORAIMA LOYA APRN 458.0 ORTHOSTATIC HYPOTENSION 04/09/2011 MORAIMA LOYA APRN 571.8 FATTY LIVER 04/09/2011 MORAIMA LOYA APRN 788.30 INCONTINENCE/ENURESIS NOS 04/09/2011 KATHYA WEBSTER, LYNDSAY 272.4 HYPERLIPIDEMIA 04/09/2011 LYNDSAY RASHEED MD 458.0 ORTHOSTATIC HYPOTENSION 04/09/2011 LYNDSAY RASHEED MD 571.8 FATTY LIVER 04/09/2011 KATHYA WEBSTER, LYNDSAY 788.30 INCONTINENCE/ENURESIS NOS 04/09/2011 MORAIMA LOYA APRN 272.4 HYPERLIPIDEMIA 04/09/2011 MORAIMA LOYA APRN 458.0 ORTHOSTATIC HYPOTENSION 04/09/2011 MORAIMA LOYA APRN 571.8 FATTY LIVER 04/09/2011 MORAIMA LOYA APRN 788.30 INCONTINENCE/ENURESIS NOS 04/09/2011 272.4 HYPERLIPIDEMIA 04/09/2011 458.0 ORTHOSTATIC HYPOTENSION 04/09/2011 571.8 FATTY LIVER 04/09/2011 788.30 INCONTINENCE/ENURESIS NOS 04/09/2011 MORAIMA LOYA APRN 272.4 HYPERLIPIDEMIA 04/09/2011 MORAIMA LOYA APRN 458.0 ORTHOSTATIC HYPOTENSION 04/09/2011 MORAIMA LOYA APRN 571.8 FATTY LIVER 04/09/2011 MORAIMA LOYA APRN 788.30 INCONTINENCE/ENURESIS NOS 04/09/2011 MORAIMA LOYA APRN 272.4 HYPERLIPIDEMIA 04/09/2011 MORAIMA LOYA APRN 458.0 ORTHOSTATIC HYPOTENSION 04/09/2011 MORAIMA LOYA APRN 571.8 FATTY LIVER 04/09/2011 MORAIMA LOYA APRN 788.30 INCONTINENCE/ENURESIS NOS 04/09/2011 IVÁN CURTAIN CUTTER HAND, TEQUILA 272.4 HYPERLIPIDEMIA 04/09/2011 IVÁN CURTAIN CUTTER HAND, TEQUILA 458.0 ORTHOSTATIC HYPOTENSION 04/09/2011 IVÁN CURTAIN CUTTER HAND, TEQUILA 571.8 FATTY LIVER 04/09/2011 IVÁN CURTAIN CUTTER HAND, TEQUILA 788.30 INCONTINENCE/ENURESIS NOS 04/09/2011 IVÁN CURTAIN CUTTER HAND, TEQUILA 272.4 HYPERLIPIDEMIA 04/09/2011 IVÁN CURTAIN CUTTER HAND, TEQUILA 458.0 ORTHOSTATIC HYPOTENSION 04/09/2011 IVÁN CURTAIN CUTTER HAND, TEQUILA 571.8 FATTY LIVER 04/09/2011 IVÁN CURTAIN CUTTER HAND, TEQUILA 788.30 INCONTINENCE/ENURESIS NOS 04/09/2011 IVÁN CURTAIN CUTTER HAND, TEQUILA 272.4 HYPERLIPIDEMIA 04/09/2011 IVÁN CURTAIN CUTTER HAND, TEQUILA 458.0 ORTHOSTATIC HYPOTENSION 04/09/2011 IVÁN CURTAIN CUTTER HAND, TEQUILA 571.8 FATTY LIVER 04/09/2011 IVÁN CURTAIN CUTTER HAND, TEQUILA 788.30 INCONTINENCE/ENURESIS NOS 04/09/2011 IVÁN CURTAIN CUTTER HAND, TEQUILA 272.4 HYPERLIPIDEMIA 04/09/2011 IVÁN CURTAIN CUTTER HAND, TEQUILA 458.0 ORTHOSTATIC HYPOTENSION 04/09/2011 IVÁN CURTAIN CUTTER HAND, TEQUILA 571.8 FATTY LIVER 04/09/2011 IVÁN CURTAIN CUTTER HAND, TEQUILA 788.30 INCONTINENCE/ENURESIS NOS 04/09/2011 IVÁN CURTAIN CUTTER HAND, TEQUILA 272.4 HYPERLIPIDEMIA 04/09/2011 IVÁN CURTAIN CUTTER HAND, TEQUILA 458.0 ORTHOSTATIC HYPOTENSION 04/09/2011 IVÁN CURTAIN CUTTER HAND, TEQUILA 571.8 FATTY LIVER 04/09/2011 IVÁN CURTAIN CUTTER HAND, TEQUILA 788.30 INCONTINENCE/ENURESIS NOS 04/09/2011 PS CURTAIN CUTTER HAND, TREVER S 272.4 HYPERLIPIDEMIA 04/09/2011 SP CURTAIN CUTTER HAND, TREVER S 458.0 ORTHOSTATIC HYPOTENSION 04/09/2011 SP CURTAIN CUTTER HAND, TREVER S 571.8 FATTY LIVER 04/09/2011 SP CURTAIN CUTTER HAND, TREVER S 788.30 INCONTINENCE/ENURESIS NOS 04/09/2011 IVÁN CURTAIN CUTTER HAND, TEQUILA 272.4 HYPERLIPIDEMIA 04/09/2011 IVÁN CURTAIN CUTTER HAND, TEQUILA 458.0 ORTHOSTATIC HYPOTENSION 04/09/2011 IVÁN CURTAIN CUTTER HAND, TEQUILA 571.8 FATTY LIVER 04/09/2011 IVÁN CURTAIN CUTTER HAND, TEQUILA 788.30 INCONTINENCE/ENURESIS NOS 04/09/2011 IVÁN CURTAIN CUTTER HAND, TEQUILA 272.4 HYPERLIPIDEMIA 04/09/2011 IVÁN CURTAIN CUTTER HAND, TEQUILA 458.0 ORTHOSTATIC HYPOTENSION 04/09/2011 IVÁN CURTAIN CUTTER HAND, TEQUILA 571.8 FATTY LIVER 04/09/2011 IVÁN CURTAIN CUTTER HAND, TEQUILA 788.30 INCONTINENCE/ENURESIS NOS 04/09/2011 IVÁN CURTAIN CUTTER HAND, TEQUILA 272.4 HYPERLIPIDEMIA 04/09/2011 IVÁN CURTAIN CUTTER HAND, TEQUILA 458.0 ORTHOSTATIC HYPOTENSION 04/09/2011 IVÁN CURTAIN CUTTER HAND, TEQUILA 571.8 FATTY LIVER 04/09/2011 IVÁN CURTAIN CUTTER HAND, TEQUILA 788.30 INCONTINENCE/ENURESIS NOS 04/09/2011 SP CURTAIN CUTTER HAND, TREVER S 272.4 HYPERLIPIDEMIA 04/09/2011 SP CURTAIN CUTTER HAND, TREVER S 458.0 ORTHOSTATIC HYPOTENSION 04/09/2011 SP CURTAIN CUTTER HAND, TREVER S 571.8 FATTY LIVER 04/09/2011 SP CURTAIN CUTTER HAND, TREVER S 788.30 INCONTINENCE/ENURESIS NOS 04/09/2011 IVÁN CURTAIN CUTTER HAND, TEQUILA 272.4 HYPERLIPIDEMIA 04/09/2011 IVÁN CURTAIN CUTTER HAND, TEQUILA 458.0 ORTHOSTATIC HYPOTENSION 04/09/2011 IVÁN CURTAIN CUTTER HAND, TEQUILA 571.8 FATTY LIVER 04/09/2011 IVÁN CURTAIN CUTTER HAND, TEQUILA 788.30 INCONTINENCE/ENURESIS NOS 05/08/2011 CARREON DO, CORTEZ K 110.1 Onychomycosis 05/08/2011 CARREON DO, CORTEZ K 703.0 Nail Ingrown 05/08/2011 110.1 Onychomycosis 05/08/2011 703.0 Nail Ingrown 05/08/2011 CARREON DO, CORTEZ K 110.1 Onychomycosis 05/08/2011 CARREON DO, CORTEZ K 703.0 Nail Ingrown 05/08/2011 CARREON DO, CORTEZ K 110.1 Onychomycosis 05/08/2011 CARREON DO, CORTEZ K 703.0 Nail Ingrown 05/08/2011 MORAIMA LOYA APRN 110.1 Onychomycosis 05/08/2011 MORAIMA LOYA APRN 703.0 Nail Ingrown 05/08/2011 LYNDSAY RASHEED MD 110.1 Onychomycosis 05/08/2011 LYNDSAY RASHEED MD 703.0 Nail Ingrown 05/08/2011 MORAIMA LOYA APRN 110.1 Onychomycosis 05/08/2011 MORAIMA LOYA APRN 703.0 Nail Ingrown 05/08/2011 110.1 Onychomycosis 05/08/2011 703.0 Nail Ingrown 05/08/2011 MORAIMA LOYA APRN 110.1 Onychomycosis 05/08/2011 MORAIMA LOYA APRN 703.0 Nail Ingrown 05/08/2011 MORAIMA LOYA APRN 110.1 Onychomycosis 05/08/2011 MORAIMA LOYA APRN 703.0 Nail Ingrown 05/08/2011 IVÁN CURTAIN CUTTER HAND, TEQUILA 110.1 Onychomycosis 05/08/2011 IVÁN CURTAIN CUTTER HAND, TEQUILA 703.0 Nail Ingrown 05/08/2011 IVÁN CURTAIN CUTTER HAND, TEQUILA 110.1 Onychomycosis 05/08/2011 IVÁN CURTAIN CUTTER HAND, TEQUILA 703.0 Nail Ingrown 05/08/2011 IVÁN CURTAIN CUTTER HAND, TEQUILA 110.1 Onychomycosis 05/08/2011 IVÁN CURTAIN CUTTER HAND, TEQUILA 703.0 Nail Ingrown 05/08/2011 IVÁN CURTAIN CUTTER HAND, TEQUILA 110.1 Onychomycosis 05/08/2011 IVÁN CURTAIN CUTTER HAND, TEQUIAL 703.0 Nail Ingrown 05/08/2011 IVÁN CURTAIN CUTTER HAND, TEQUILA 110.1 Onychomycosis 05/08/2011 IVÁN CURTAIN CUTTER HAND, TEQUILA 703.0 Nail Ingrown 05/08/2011 SP CURTAIN CUTTER HAND, TREVER S 110.1 Onychomycosis 05/08/2011 SP CURTAIN CUTTER HAND, TREVER S 703.0 Nail Ingrown 05/08/2011 IVÁN CURTAIN CUTTER HAND, TEQUILA 110.1 Onychomycosis 05/08/2011 IVÁN CURTAIN CUTTER HAND, TEQUILA 703.0 Nail Ingrown 05/08/2011 IVÁN CURTAIN CUTTER HAND, TEQUILA 110.1 Onychomycosis 05/08/2011 IVÁN CURTAIN CUTTER HAND, TEQUILA 703.0 Nail Ingrown 05/08/2011 IVÁN CURTAIN CUTTER HAND, TEQUILA 110.1 Onychomycosis 05/08/2011 IVÁN CURTAIN CUTTER HAND, TEQUILA 703.0 Nail Ingrown 05/08/2011 SP CURTAIN CUTTER HAND, TREVER S 110.1 Onychomycosis 05/08/2011 SP CURTAIN CUTTER HAND, TREVER S 703.0 Nail Ingrown 05/08/2011 IVÁN CURTAIN CUTTER HAND, TEQUILA 110.1 Onychomycosis 05/08/2011 IVÁN CURTAIN CUTTER HAND, TEQUILA 703.0 Nail Ingrown 06/17/2011 CARREON DOBERTA K 780.1 Hallucinations 06/17/2011 CARREON DOCORTEZ K 781.1 Disturbances Of Sensation Of Smell And Taste 06/17/2011 780.1 Hallucinations 06/17/2011 781.1 Disturbances Of Sensation Of Smell And Taste 06/17/2011 CARREON DO, CORTEZ K 780.1 Hallucinations 06/17/2011 CARREON DO, CORTEZ K 781.1 Disturbances Of Sensation Of Smell And Taste 06/17/2011 CARREON DO, CORTEZ K 780.1 Hallucinations 06/17/2011 CARREON DO, CORTEZ K 781.1 Disturbances Of Sensation Of Smell And Taste 06/17/2011 MORAIMA LOYA APRN 780.1 Hallucinations 06/17/2011 MORAIMA LOYA APRN 781.1 Disturbances Of Sensation Of Smell And Taste 06/17/2011 LYNDSAY RASHEED MD 780.1 Hallucinations 06/17/2011 LYNDSAY RASHEED MD 781.1 Disturbances Of Sensation Of Smell And Taste 06/17/2011 MORAIMA LOYA APRN 780.1 Hallucinations 06/17/2011 MORAIMA LOYA APRN 781.1 Disturbances Of Sensation Of Smell And Taste 06/17/2011 780.1 Hallucinations 06/17/2011 781.1 Disturbances Of Sensation Of Smell And Taste 06/17/2011 MORAIMA LOYA APRN 780.1 Hallucinations 06/17/2011 MORAIMA LOYA APRN 781.1 Disturbances Of Sensation Of Smell And Taste 06/17/2011 MORAIMA LOYA APRN 780.1 Hallucinations 06/17/2011 MORAIMA LOYA APRN 781.1 Disturbances Of Sensation Of Smell And Taste 06/17/2011 IVÁNFITZ HARRIS TEQUILA 780.1 Hallucinations 06/17/2011 IVÁN KIMBERLY TEQUILA 781.1 Disturbances Of Sensation Of Smell And Taste 06/17/2011 IVÁN CURTAIN CUTTER HAND TEQUILA 780.1 Hallucinations 06/17/2011 IVÁN CURTAIN CUTTER HAND, TEQUILA 781.1 Disturbances Of Sensation Of Smell And Taste 06/17/2011 IVÁN CURTAIN CUTTER HAND TEQUILA 780.1 Hallucinations 06/17/2011 IVÁN CURTAIN CUTTER HAND, TEQUILA 781.1 Disturbances Of Sensation Of Smell And Taste 06/17/2011 IVÁN CURTAIN CUTTER HAND, TEQUILA 780.1 Hallucinations 06/17/2011 IVÁN CURTAIN CUTTER HAND, TEQUILA 781.1 Disturbances Of Sensation Of Smell And Taste 06/17/2011 IVÁN CURTAIN CUTTER HAND TEQUILA 780.1 Hallucinations 06/17/2011 IVÁN CURTAIN CUTTER HAND, TEQUILA 781.1 Disturbances Of Sensation Of Smell And Taste 06/17/2011 SP CURTAIN CUTTER HAND, TREVER S 780.1 Hallucinations 06/17/2011 SP CURTAIN CUTTER HAND, TREVER S 781.1 Disturbances Of Sensation Of Smell And Taste 06/17/2011 IVÁN CURTAIN CUTTER HAND, TEQUILA 780.1 Hallucinations 06/17/2011 IVÁN CURTAIN CUTTER HAND, TEQUILA 781.1 Disturbances Of Sensation Of Smell And Taste 06/17/2011 IVÁN CURTAIN CUTTER HAND, TEQUILA 780.1 Hallucinations 06/17/2011 IVÁN CURTAIN CUTTER HAND, TEQUILA 781.1 Disturbances Of Sensation Of Smell And Taste 06/17/2011 IVÁN CURTAIN CUTTER HAND, TEQUILA 780.1 Hallucinations 06/17/2011 IVÁN CURTAIN CUTTER HAND, TEQUILA 781.1 Disturbances Of Sensation Of Smell And Taste 06/17/2011 SP CURTAIN CUTTER HAND, TREVER S 780.1 Hallucinations 06/17/2011 SP CURTAIN CUTTER HAND, TREVER S 781.1 Disturbances Of Sensation Of Smell And Taste 06/17/2011 IVÁN CURTAIN CUTTER HAND, TEQUILA 780.1 Hallucinations 06/17/2011 IVÁN CURTAIN CUTTER HAND, TEQUILA 781.1 Disturbances Of Sensation Of Smell And Taste 08/31/2011 CORTEZ CARREON DO K 275.2 Hypomagnesemia 08/31/2011 BERT CARREON DOA K 276.8 Hypokalemia 08/31/2011 LAURI HERNADEZ CORTEZ K V04.81 Vaccines Prophylactic Need Against Influenza 08/31/2011 BERT CARREON DOA K V73.81 Visit For: Screening Exam For Human Papillomavirus (hpv) 08/31/2011 BERT CARREON DOA K V76.2 Cervical Pap Smear 08/31/2011 275.2 Hypomagnesemia 08/31/2011 276.8 Hypokalemia 08/31/2011 V04.81 Vaccines Prophylactic Need Against Influenza 08/31/2011 V73.81 Visit For: Screening Exam For Human Papillomavirus (hpv) 08/31/2011 V76.2 Cervical Pap Smear 08/31/2011 BERT CARREON DOA K 275.2 Hypomagnesemia 08/31/2011 LAURI HERNADEZ CORTEZ K 276.8 Hypokalemia 08/31/2011 LAURI HERNADEZ CORTEZ K V04.81 Vaccines Prophylactic Need Against Influenza 08/31/2011 CARREON , CORTEZ K V73.81 Visit For: Screening Exam For Human Papillomavirus (hpv) 08/31/2011 CARREON DO, CORTEZ K V76.2 Cervical Pap Smear 08/31/2011 CARREON DO, CORTEZ K 275.2 Hypomagnesemia 08/31/2011 CARREON DO, CORTEZ K 276.8 Hypokalemia 08/31/2011 CARREON , CORTEZ K V04.81 Vaccines Prophylactic Need Against Influenza 08/31/2011 CARREON , CORTEZ K V73.81 Visit For: Screening Exam For Human Papillomavirus (hpv) 08/31/2011 CARREON DO, CORTEZ K V76.2 Cervical Pap Smear 08/31/2011 MORAIMA LOYA APRN 275.2 Hypomagnesemia 08/31/2011 MORAIMA LOYA APRN 276.8 Hypokalemia 08/31/2011 MORAIMA LOYA APRN V04.81 Vaccines Prophylactic Need Against Influenza 08/31/2011 MORAIMA LOYA APRN V73.81 Visit For: Screening Exam For Human Papillomavirus (hpv) 08/31/2011 MORAIMA LOYA APRN V76.2 Cervical Pap Smear 08/31/2011 LYNDSAY RASHEED MD 275.2 Hypomagnesemia 08/31/2011 LYNDSAY RASHEED MD 276.8 Hypokalemia 08/31/2011 LYNDSAY RASHEED MD V04.81 Vaccines Prophylactic Need Against Influenza 08/31/2011 LYNDSAY RASHEED MD V73.81 Visit For: Screening Exam For Human Papillomavirus (hpv) 08/31/2011 LYNDSAY RASHEED MD V76.2 Cervical Pap Smear 08/31/2011 MORAIMA LOYA APRN 275.2 Hypomagnesemia 08/31/2011 MORAIMA LOYA APRN D 276.8 Hypokalemia 08/31/2011 MORAIMA LOYA APRN V04.81 Vaccines Prophylactic Need Against Influenza 08/31/2011 MORAIMA LOYA APRN V73.81 Visit For: Screening Exam For Human Papillomavirus (hpv) 08/31/2011 MORAIMA LOYA APRN V76.2 Cervical Pap Smear 08/31/2011 275.2 Hypomagnesemia 08/31/2011 276.8 Hypokalemia 08/31/2011 V04.81 Vaccines Prophylactic Need Against Influenza 08/31/2011 V73.81 Visit For: Screening Exam For Human Papillomavirus (hpv) 08/31/2011 V76.2 Cervical Pap Smear 08/31/2011 MORAIMA LOYA APRN 275.2 Hypomagnesemia 08/31/2011 MORAIMA LOYA APRN 276.8 Hypokalemia 08/31/2011 MORAIMA LOYA APRN D V04.81 Vaccines Prophylactic Need Against Influenza 08/31/2011 MORAIMA LOYA APRN D V73.81 Visit For: Screening Exam For Human Papillomavirus (hpv) 08/31/2011 MORAIMA LOYA APRN V76.2 Cervical Pap Smear 08/31/2011 MORAIMA LOYA APRN 275.2 Hypomagnesemia 08/31/2011 MORAIMA LOYA APRN 276.8 Hypokalemia 08/31/2011 MORAIMA LOYA APRN V04.81 Vaccines Prophylactic Need Against Influenza 08/31/2011 MORAIMA LOYA APRN V73.81 Visit For: Screening Exam For Human Papillomavirus (hpv) 08/31/2011 MORAIMA LOYA APRN V76.2 Cervical Pap Smear 08/31/2011 IVÁN [employer] HAND, TEQUILA 275.2 Hypomagnesemia 08/31/2011 IVÁN [employer], TEQUILA 276.8 Hypokalemia 08/31/2011 IVÁN [employer], TEQUILA V04.81 Vaccines Prophylactic Need Against Influenza 08/31/2011 IVÁN [employer], TEQUILA V73.81 Visit For: Screening Exam For Human Papillomavirus (hpv) 08/31/2011 IVÁN [employer], TEQUILA V76.2 Cervical Pap Smear 08/31/2011 IVÁN [employer], TEQUILA 275.2 Hypomagnesemia 08/31/2011 IVÁN [employer] HAND, TEQUILA 276.8 Hypokalemia 08/31/2011 IVÁN [employer], TEQUILA V04.81 Vaccines Prophylactic Need Against Influenza 08/31/2011 IVÁN [employer], TEQUILA V73.81 Visit For: Screening Exam For Human Papillomavirus (hpv) 08/31/2011 IVÁN [employer], TEQUILA V76.2 Cervical Pap Smear 08/31/2011 IVÁN [employer], TEQUILA 275.2 Hypomagnesemia 08/31/2011 IVÁN [employer] HAND, TEQUILA 276.8 Hypokalemia 08/31/2011 IVÁN [employer], TEQUILA V04.81 Vaccines Prophylactic Need Against Influenza 08/31/2011 IVÁN [employer], TEQUILA V73.81 Visit For: Screening Exam For Human Papillomavirus (hpv) 08/31/2011 IVÁN [employer], TEQUILA V76.2 Cervical Pap Smear 08/31/2011 IVÁN [employer], TEQUILA 275.2 Hypomagnesemia 08/31/2011 IVÁN [employer] HAND, TEQUILA 276.8 Hypokalemia 08/31/2011 IVÁN [employer], TEQUILA V04.81 Vaccines Prophylactic Need Against Influenza 08/31/2011 IVÁN [employer], TEQUILA V73.81 Visit For: Screening Exam For Human Papillomavirus (hpv) 08/31/2011 IVÁN [employer], TEQUILA V76.2 Cervical Pap Smear 08/31/2011 IVÁN [employer] HAND, TEQUILA 275.2 Hypomagnesemia 08/31/2011 IVÁN [employer] HAND, TEQUILA 276.8 Hypokalemia 08/31/2011 IVÁN [employer] HAND, TEQUILA V04.81 Vaccines Prophylactic Need Against Influenza 08/31/2011 IVÁN [employer], TEQUILA V73.81 Visit For: Screening Exam For Human Papillomavirus (hpv) 08/31/2011 IVÁN [employer], TEQUILA V76.2 Cervical Pap Smear 08/31/2011 SP [employer] CUT[employer] HAND, TREVER S 275.2 Hypomagnesemia 08/31/2011 SP [employer] HAND, TREVER S 276.8 Hypokalemia 08/31/2011 SP [employer] HAND, TREVER S V04.81 Vaccines Prophylactic Need Against Influenza 08/31/2011 SP [employer] HAND, TREVER S V73.81 Visit For: Screening Exam For Human Papillomavirus (hpv) 08/31/2011 SP [employer] HAND, TREVER S V76.2 Cervical Pap Smear 08/31/2011 IVÁN [employer] HAND, TEQUILA 275.2 Hypomagnesemia 08/31/2011 IVÁN [employer] HAND, TEQUILA 276.8 Hypokalemia 08/31/2011 IVÁN [employer], TEQUILA V04.81 Vaccines Prophylactic Need Against Influenza 08/31/2011 IVÁN [employer], TEQUILA V73.81 Visit For: Screening Exam For Human Papillomavirus (hpv) 08/31/2011 IVÁN [employer], TEQUILA V76.2 Cervical Pap Smear 08/31/2011 IVÁN [employer] HAND, TEQUILA 275.2 Hypomagnesemia 08/31/2011 IVÁN [employer] C[employer] HAND, TEQUILA 276.8 Hypokalemia 08/31/2011 IVÁN [employer] HAND, TEQUILA V04.81 Vaccines Prophylactic Need Against Influenza 08/31/2011 IVÁN [employer], TEQUILA V73.81 Visit For: Screening Exam For Human Papillomavirus (hpv) 08/31/2011 IVÁN [employer] HAND, TQEUILA V76.2 Cervical Pap Smear 08/31/2011 IVÁN [employer] HAND, TEQUILA 275.2 Hypomagnesemia 08/31/2011 IVÁN [employer] HAND, TEQUILA 276.8 Hypokalemia 08/31/2011 IVÁN [employer] HAND, TEQUILA V04.81 Vaccines Prophylactic Need Against Influenza 08/31/2011 IVÁN [employer], TEQUILA V73.81 Visit For: Screening Exam For Human Papillomavirus (hpv) 08/31/2011 IVÁN [employer], TEQUILA V76.2 Cervical Pap Smear 08/31/2011 SP [employer]TAIN CUT[employer] HAND, TREVER S 275.2 Hypomagnesemia 08/31/2011 SP [employer]TAIN [employer] HAND, TREVER S 276.8 Hypokalemia 08/31/2011 SP [employer] HAND, TREVER S V04.81 Vaccines Prophylactic Need Against Influenza 08/31/2011 SP [employer] HAND, TREVER S V73.81 Visit For: Screening Exam For Human Papillomavirus (hpv) 08/31/2011 SP [employer] HAND, TREVER S V76.2 Cervical Pap Smear 08/31/2011 IVÁN [employer], TEQUILA 275.2 Hypomagnesemia 08/31/2011 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, 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 276.8 Hypokalemia 08/31/2011 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, 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 V04.81 Vaccines Prophylactic Need Against Influenza 08/31/2011 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, 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 V73.81 Visit For: Screening Exam For Human Papillomavirus (hpv) 08/31/2011 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 CURTAIN 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 HAND, TEQUILA V76.2 Cervical Pap Smear 09/14/2011 Ot 682.3 01/30/2012 CARREON DO, CORTEZ K 455.6 HEMORRHOIDS NOS 01/30/2012 455.6 HEMORRHOIDS NOS 01/30/2012 CARREON DO, CORTEZ K 455.6 HEMORRHOIDS NOS 01/30/2012 CARREON DO, CORTEZ K 455.6 HEMORRHOIDS NOS 01/30/2012 MORAIMA LOYA APRN 455.6 HEMORRHOIDS NOS 01/30/2012 LYNDSAY RASHEED MD 455.6 HEMORRHOIDS NOS 01/30/2012 MORAIMA LOYA APRN 455.6 HEMORRHOIDS NOS 01/30/2012 455.6 HEMORRHOIDS NOS 01/30/2012 MORAIMA LOYA APRN 455.6 HEMORRHOIDS NOS 01/30/2012 MORAIMA LOYA APRN 455.6 HEMORRHOIDS NOS 01/30/2012 IVÁN CURTAIN CUTTER HAND, TEQUILA 455.6 HEMORRHOIDS NOS 01/30/2012 IVÁN CURTAIN CUTTER HAND, TEQUILA 455.6 HEMORRHOIDS NOS 01/30/2012 IVÁN CURTAIN CUTTER HAND, TEQUILA 455.6 HEMORRHOIDS NOS 01/30/2012 IVÁN CURTAIN CUTTER HAND, TEQUILA 455.6 HEMORRHOIDS NOS 01/30/2012 IVÁN CURTAIN CUTTER HAND, TEQUILA 455.6 HEMORRHOIDS NOS 01/30/2012 SP CURTAIN CUTTER HAND, TREVER S 455.6 HEMORRHOIDS NOS 01/30/2012 IVÁN CURTAIN CUTTER HAND, TEQUILA 455.6 HEMORRHOIDS NOS 01/30/2012 IVÁN CURTAIN CUTTER HAND, TEQUILA 455.6 HEMORRHOIDS NOS 01/30/2012 IVÁN CURTAIN CUTTER HAND, TEQUILA 455.6 HEMORRHOIDS NOS 01/30/2012 SP CURTAIN CUTTER HAND, TREVER S 455.6 HEMORRHOIDS NOS 01/30/2012 IVÁN CURTAIN CUTTER HAND, TEQUILA 455.6 HEMORRHOIDS NOS 03/30/2012 CARREON DO, CORTEZ K 528.6 ORAL LEUKOPLAKIA 03/30/2012 528.6 ORAL LEUKOPLAKIA 03/30/2012 CARREON DO, CORTEZ K 528.6 ORAL LEUKOPLAKIA 03/30/2012 CARREON DO, CORTEZ K 528.6 ORAL LEUKOPLAKIA 03/30/2012 MORAIMA LOYA APRN 528.6 ORAL LEUKOPLAKIA 03/30/2012 LYNDSAY RASHEED MD 528.6 ORAL LEUKOPLAKIA 03/30/2012 MORAIMA LOYA APRN 528.6 ORAL LEUKOPLAKIA 03/30/2012 528.6 ORAL LEUKOPLAKIA 03/30/2012 MORAIMA LOYA APRN 528.6 ORAL LEUKOPLAKIA 03/30/2012 MORAIMA LOYA APRN 528.6 ORAL LEUKOPLAKIA 03/30/2012 IVÁN CURTAIN CUTTER HAND, TEQUILA 528.6 ORAL LEUKOPLAKIA 03/30/2012 IVÁN CURTAIN CUTTER HAND, TEQUILA 528.6 ORAL LEUKOPLAKIA 03/30/2012 IVÁN CURTAIN CUTTER HAND, TEQUILA 528.6 ORAL LEUKOPLAKIA 03/30/2012 IVÁN CURTAIN CUTTER HAND, TEQUILA 528.6 ORAL LEUKOPLAKIA 03/30/2012 IVÁN CURTAIN CUTTER HAND, TEQUILA 528.6 ORAL LEUKOPLAKIA 03/30/2012 TREVER SNOWDEN APRN S 528.6 ORAL LEUKOPLAKIA 03/30/2012 IVÁN CURTAIN CUTTER HAND, TEQUILA 528.6 ORAL LEUKOPLAKIA 03/30/2012 IVÁN CURTAIN CUTTER HAND, TEQUILA 528.6 ORAL LEUKOPLAKIA 03/30/2012 IVÁN CURTAIN CUTTER HAND, TEQUILA 528.6 ORAL LEUKOPLAKIA 03/30/2012 TREVER SNOWDEN APRN S 528.6 ORAL LEUKOPLAKIA 03/30/2012 IVÁN CURTAIN CUTTER HAND, TEQUILA 528.6 ORAL LEUKOPLAKIA 06/06/2012 CORTEZ CARREON DO 780.8 GENERALIZED HYPERHIDROSIS 06/06/2012 780.8 GENERALIZED HYPERHIDROSIS 06/06/2012 CORTEZ CARREON DO 780.8 GENERALIZED HYPERHIDROSIS 06/06/2012 CORTEZ CARREON DO 780.8 GENERALIZED HYPERHIDROSIS 06/06/2012 MORAIMA LOYA APRN 780.8 GENERALIZED HYPERHIDROSIS 06/06/2012 LYNDSAY RASHEED MD 780.8 GENERALIZED HYPERHIDROSIS 06/06/2012 MORAIMA LOYA APRN 780.8 GENERALIZED HYPERHIDROSIS 06/06/2012 780.8 GENERALIZED HYPERHIDROSIS 06/06/2012 MORAIMA LOYA APRN 780.8 GENERALIZED HYPERHIDROSIS 06/06/2012 MORAIMA LOYA APRN 780.8 GENERALIZED HYPERHIDROSIS 06/06/2012 IVÁN CURTAIN CUTTER HAND, TEQUILA 780.8 GENERALIZED HYPERHIDROSIS 06/06/2012 IVÁN CURTAIN CUTTER HAND, TEQUILA 780.8 GENERALIZED HYPERHIDROSIS 06/06/2012 IVÁN CURTAIN CUTTER HAND, TEQUILA 780.8 GENERALIZED HYPERHIDROSIS 06/06/2012 IVÁN CURTAIN CUTTER HAND, TEQUILA 780.8 GENERALIZED HYPERHIDROSIS 06/06/2012 IVÁN CURTAIN CUTTER HAND, TEQUILA 780.8 GENERALIZED HYPERHIDROSIS 06/06/2012 SP CURTAIN CUTTER HAND, TREVER S 780.8 GENERALIZED HYPERHIDROSIS 06/06/2012 IVÁN CURTAIN CUTTER HAND, TEQUILA 780.8 GENERALIZED HYPERHIDROSIS 06/06/2012 IVÁN CURTAIN CUTTER HAND, TEQUILA 780.8 GENERALIZED HYPERHIDROSIS 06/06/2012 IVÁN CURTAIN CUTTER HAND, TEQUILA 780.8 GENERALIZED HYPERHIDROSIS 06/06/2012 SP CURTAIN CUTTER HAND, TREVER S 780.8 GENERALIZED HYPERHIDROSIS 06/06/2012 IVÁN CURTAIN CUTTER HAND, TEQUILA 780.8 GENERALIZED HYPERHIDROSIS 08/01/2012 CARREON DO, CORTEZ K 780.4 DIZZINESS AND VERTIGO 08/01/2012 CARREON DO, CORTEZ K 788.1 DYSURIA 08/01/2012 780.4 DIZZINESS AND VERTIGO 08/01/2012 788.1 DYSURIA 08/01/2012 CARREON DO, CORTEZ K 780.4 DIZZINESS AND VERTIGO 08/01/2012 CARREON DO, CORTEZ K 788.1 DYSURIA 08/01/2012 CARREON DO, CORTEZ K 780.4 DIZZINESS AND VERTIGO 08/01/2012 CARREON , CORTEZ K 788.1 DYSURIA 08/01/2012 MORAIMA LOYA APRN 780.4 DIZZINESS AND VERTIGO 08/01/2012 MORAIMA LOYA APRN 788.1 DYSURIA 08/01/2012 LYNDSAY RASHEED MD 780.4 DIZZINESS AND VERTIGO 08/01/2012 LYNDSAY RASHEED MD 788.1 DYSURIA 08/01/2012 MORAIMA LOYA APRN 780.4 DIZZINESS AND VERTIGO 08/01/2012 MORAIMA LOYA APRN 788.1 DYSURIA 08/01/2012 780.4 DIZZINESS AND VERTIGO 08/01/2012 788.1 DYSURIA 08/01/2012 LIDATON CURTAIN CUTTER HANDMORAIMA D 780.4 DIZZINESS AND VERTIGO 08/01/2012 GARTON CURTAIN CUTTER HANDMORAIMA D 788.1 DYSURIA 08/01/2012 GARTON CURTAIN CUTTER HAND, MORAIMA D 780.4 DIZZINESS AND VERTIGO 08/01/2012 SHALINI CURTAIN CUTTER HANDMORAIMA D 788.1 DYSURIA 08/01/2012 IVÁN CURTAIN CUTTER HAND, TEQUILA 780.4 DIZZINESS AND VERTIGO 08/01/2012 IVÁN CURTAIN CUTTER HAND, TEQUILA 788.1 DYSURIA 08/01/2012 IVÁN CURTAIN CUTTER HAND, TEQUILA 780.4 DIZZINESS AND VERTIGO 08/01/2012 IVÁN CURTAIN CUTTER HAND, TEQUILA 788.1 DYSURIA 08/01/2012 IVÁN CURTAIN CUTTER HAND, TEQUILA 780.4 DIZZINESS AND VERTIGO 08/01/2012 IVÁN CURTAIN CUTTER HAND, TEQUILA 788.1 DYSURIA 08/01/2012 IVÁN CURTAIN CUTTER HAND, TEQUILA 780.4 DIZZINESS AND VERTIGO 08/01/2012 IVÁN CURTAIN CUTTER HAND, TEQUILA 788.1 DYSURIA 08/01/2012 IVÁN CURTAIN CUTTER HAND, TEQUILA 780.4 DIZZINESS AND VERTIGO 08/01/2012 IVÁN CURTAIN CUTTER HAND, TEQUILA 788.1 DYSURIA 08/01/2012 SP CURTAIN CUTTER HAND, TREVER S 780.4 DIZZINESS AND VERTIGO 08/01/2012 SP CURTAIN CUTTER HAND, TREVER S 788.1 DYSURIA 08/01/2012 IVÁN CURTAIN CUTTER HAND, TEQUILA 780.4 DIZZINESS AND VERTIGO 08/01/2012 IVÁN CURTAIN CUTTER HAND, TEQUILA 788.1 DYSURIA 08/01/2012 IVÁN CURTAIN CUTTER HAND, TEQUILA 780.4 DIZZINESS AND VERTIGO 08/01/2012 IVÁN CURTAIN CUTTER HAND, TEQUILA 788.1 DYSURIA 08/01/2012 IVÁN CURTAIN CUTTER HAND, TEQUILA 780.4 DIZZINESS AND VERTIGO 08/01/2012 IVÁN CURTAIN CUTTER HAND, TEQUILA 788.1 DYSURIA 08/01/2012 SP CURTAIN CUTTER HAND, TREVER S 780.4 DIZZINESS AND VERTIGO 08/01/2012 SP CURTAIN CUTTER HAND, TREVER S 788.1 DYSURIA 08/01/2012 IVÁN CURTAIN CUTTER HAND, TEQUILA 780.4 DIZZINESS AND VERTIGO 08/01/2012 IVÁN CURTAIN CUTTER HAND, TEQUILA 788.1 DYSURIA 10/24/2012 CARREON DO, CORTEZ K 705.83 HIDRADENITIS 10/24/2012 CARREON DO, CORTEZ K V76.10 BREAST CANCER SCREENING 10/24/2012 CARREON DO, CORTEZ K V76.2 CERVICAL CANCER SCREENING (PAP SMEAR) 10/24/2012 MORAIMA LOYA APRN 705.83 HIDRADENITIS 10/24/2012 MORAIMA LOYA APRN V76.10 BREAST CANCER SCREENING 10/24/2012 MORAIMA LOYA APRN V76.2 CERVICAL CANCER SCREENING (PAP SMEAR) 10/24/2012 LYNDSAY RASHEED MD 705.83 HIDRADENITIS 10/24/2012 LYNDSAY RASHEED MD V76.10 BREAST CANCER SCREENING 10/24/2012 LYNDSAY RASHEED MD V76.2 CERVICAL CANCER SCREENING (PAP SMEAR) 10/24/2012 MORAIMA LOYA APRN 705.83 HIDRADENITIS 10/24/2012 MORAIMA LOYA APRN V76.10 BREAST CANCER SCREENING 10/24/2012 MORAIMA LOYA APRN V76.2 CERVICAL CANCER SCREENING (PAP SMEAR) 10/24/2012 705.83 HIDRADENITIS 10/24/2012 V76.10 BREAST CANCER SCREENING 10/24/2012 V76.2 CERVICAL CANCER SCREENING (PAP SMEAR) 10/24/2012 MORAIMA LOYA APRN 705.83 HIDRADENITIS 10/24/2012 MORAIMA LOYA APRN V76.10 BREAST CANCER SCREENING 10/24/2012 MORAIMA LOYA APRN V76.2 CERVICAL CANCER SCREENING (PAP SMEAR) 10/24/2012 MORAIMA LOYA APRN 705.83 HIDRADENITIS 10/24/2012 MORAIMA LOYA APRN V76.10 BREAST CANCER SCREENING 10/24/2012 MORAIMA LOYA APRN V76.2 CERVICAL CANCER SCREENING (PAP SMEAR) 10/24/2012 TEQUILA MINOR APRN 705.83 HIDRADENITIS 10/24/2012 TEQUILA MINOR APRN V76.10 BREAST CANCER SCREENING 10/24/2012 IVÁN CURTAIN CUTTER HAND, TEQUILA V76.2 CERVICAL CANCER SCREENING (PAP SMEAR) 10/24/2012 IVÁN CURTAIN CUTTER HAND, TEQUILA 705.83 HIDRADENITIS 10/24/2012 IVÁN CURTAIN CUTTER HAND, TEQUILA V76.10 BREAST CANCER SCREENING 10/24/2012 IVÁN CURTAIN CUTTER HAND, TEQUILA V76.2 CERVICAL CANCER SCREENING (PAP SMEAR) 10/24/2012 IVÁN CURTAIN CUTTER HAND, TEQUILA 705.83 HIDRADENITIS 10/24/2012 IVÁN CURTAIN CUTTER HAND, TEQUILA V76.10 BREAST CANCER SCREENING 10/24/2012 IVÁN CURTAIN CUTTER HAND, TEQUILA V76.2 CERVICAL CANCER SCREENING (PAP SMEAR) 10/24/2012 IVÁN CURTAIN CUTTER HAND, TEQUILA 705.83 HIDRADENITIS 10/24/2012 IVÁN CURTAIN CUTTER HAND, TEQUILA V76.10 BREAST CANCER SCREENING 10/24/2012 IVÁN CURTAIN CUTTER HAND, TEQUILA V76.2 CERVICAL CANCER SCREENING (PAP SMEAR) 10/24/2012 IVÁN CURTAIN CUTTER HAND, TEQUILA 705.83 HIDRADENITIS 10/24/2012 IVÁN CURTAIN CUTTER HAND, TEQUILA V76.10 BREAST CANCER SCREENING 10/24/2012 IVÁN CURTAIN CUTTER HAND, TEQUILA V76.2 CERVICAL CANCER SCREENING (PAP SMEAR) 10/24/2012 SP HARRIS, TREVER S 705.83 HIDRADENITIS 10/24/2012 SP HARRIS, TREVER S V76.10 BREAST CANCER SCREENING 10/24/2012 SP HARRIS, TREVER S V76.2 CERVICAL CANCER SCREENING (PAP SMEAR) 10/24/2012 IVÁN CURTAIN CUTTER HAND, TEQUILA 705.83 HIDRADENITIS 10/24/2012 IVÁN CURTAIN CUTTER HAND, TEQUILA V76.10 BREAST CANCER SCREENING 10/24/2012 IVÁN CURTAIN CUTTER HAND, TEQUILA V76.2 CERVICAL CANCER SCREENING (PAP SMEAR) 10/24/2012 IVÁN CURTAIN CUTTER HAND, TEQUILA 705.83 HIDRADENITIS 10/24/2012 IVÁN CURTAIN CUTTER HAND, TEQUILA V76.10 BREAST CANCER SCREENING 10/24/2012 IVÁN CURTAIN CUTTER HAND, TEQUILA V76.2 CERVICAL CANCER SCREENING (PAP SMEAR) 10/24/2012 IVÁN CURTAIN CUTTER HAND, TEQUILA 705.83 HIDRADENITIS 10/24/2012 IVÁN CURTAIN CUTTER HAND, TEQUILA V76.10 BREAST CANCER SCREENING 10/24/2012 TEQUILA MINOR APRN V76.2 CERVICAL CANCER SCREENING (PAP SMEAR) 10/24/2012 TREVER SNOWDEN APRN S 705.83 HIDRADENITIS 10/24/2012 TREVER SNOWDEN APRN S V76.10 BREAST CANCER SCREENING 10/24/2012 TREVER SNOWDEN APRN S V76.2 CERVICAL CANCER SCREENING (PAP SMEAR) 10/24/2012 TEQUILA MINOR APRN 705.83 HIDRADENITIS 10/24/2012 TEQUILA MINOR APRN V76.10 BREAST CANCER SCREENING 10/24/2012 TEQUILA MINOR APRN V76.2 CERVICAL CANCER SCREENING (PAP SMEAR) 07/06/2013 MORAIMA LOYA APRN 296.33 MO DEPRESSIVE RECURRENT SEVERE W/O PSYCHOTIC BEHAVIOR 07/06/2013 MORAIMA LOYA APRN 300.21 AN PANIC DIS W AGORA 07/06/2013 LYNDSAY RASHEED MD 296.33 MO DEPRESSIVE RECURRENT SEVERE W/O PSYCHOTIC BEHAVIOR 07/06/2013 LYNDSAY RASHEED MD 300.21 AN PANIC DIS W AGORA 07/06/2013 MORAIMA LOYA APRN 296.33 MO DEPRESSIVE RECURRENT SEVERE W/O PSYCHOTIC BEHAVIOR 07/06/2013 MORAIMA LOYA APRN 300.21 AN PANIC DIS W AGORA 07/06/2013 296.33 MO DEPRESSIVE RECURRENT SEVERE W/O PSYCHOTIC BEHAVIOR 07/06/2013 300.21 AN PANIC DIS W AGORA 07/06/2013 MORAIMA LOYA APRN 296.33 MO DEPRESSIVE RECURRENT SEVERE W/O PSYCHOTIC BEHAVIOR 07/06/2013 MORAIMA LOYA APRN 300.21 AN PANIC DIS W AGORA 07/06/2013 OMRAIMA LOYA APRN 296.33 MO DEPRESSIVE RECURRENT SEVERE W/O PSYCHOTIC BEHAVIOR 07/06/2013 MORAIMA LOYA APRN 300.21 AN PANIC DIS W AGORA 07/06/2013 TEQUILA MINOR APRN 296.33 MO DEPRESSIVE RECURRENT SEVERE W/O PSYCHOTIC BEHAVIOR 07/06/2013 TEQUILA MINOR APRN 300.21 AN PANIC DIS W AGORA 07/06/2013 TEQUILA MINOR APRN 296.33 MO DEPRESSIVE RECURRENT SEVERE W/O PSYCHOTIC BEHAVIOR 07/06/2013 IVÁN HARRIS TEQUILA 300.21 AN PANIC DIS W AGORA 07/06/2013 IVÁN CURTAIN CUTTER HAND, TEQUILA 296.33 MO DEPRESSIVE RECURRENT SEVERE W/O PSYCHOTIC BEHAVIOR 07/06/2013 IVÁN HARRIS TEQUILA 300.21 AN PANIC DIS W AGORA 07/06/2013 IVÁN CURTAIN CUTTER HAND, TEQUILA 296.33 MO DEPRESSIVE RECURRENT SEVERE W/O PSYCHOTIC BEHAVIOR 07/06/2013 IVÁN HARRIS TEQUILA 300.21 AN PANIC DIS W AGORA 07/06/2013 IVÁN CURTAIN CUTTER HAND, TEQUILA 296.33 MO DEPRESSIVE RECURRENT SEVERE W/O PSYCHOTIC BEHAVIOR 07/06/2013 IVÁN HARRIS TEQUILA 300.21 AN PANIC DIS W AGORA 07/06/2013 SAMANTHA SNOWDEN APRNNDA S 296.33 MO DEPRESSIVE RECURRENT SEVERE W/O PSYCHOTIC BEHAVIOR 07/06/2013 SAMANTHA SNOWDEN APRNNDA S 300.21 AN PANIC DIS W AGORA 07/06/2013 IVÁN HARRIS TEQUILA 296.33 MO DEPRESSIVE RECURRENT SEVERE W/O PSYCHOTIC BEHAVIOR 07/06/2013 IVÁN HARRIS TEQUILA 300.21 AN PANIC DIS W AGORA 07/06/2013 IVÁN HARRIS TEQUILA 296.33 MO DEPRESSIVE RECURRENT SEVERE W/O PSYCHOTIC BEHAVIOR 07/06/2013 IVÁN HARRIS TEQUILA 300.21 AN PANIC DIS W AGORA 07/06/2013 IVÁN HARRIS TEQUILA 296.33 MO DEPRESSIVE RECURRENT SEVERE W/O PSYCHOTIC BEHAVIOR 07/06/2013 IVÁN HARRIS TEQUILA 300.21 AN PANIC DIS W AGORA 07/06/2013 SAMANTHA SNOWDEN APRNNDA S 296.33 MO DEPRESSIVE RECURRENT SEVERE W/O PSYCHOTIC BEHAVIOR 07/06/2013 SP HARRIS TREVER S 300.21 AN PANIC DIS W AGORA 07/06/2013 IVÁN CURTAIN CUTTER HAND, TEQUILA 296.33 MO DEPRESSIVE RECURRENT SEVERE W/O PSYCHOTIC BEHAVIOR 07/06/2013 IVÁN HARRIS TEQUILA 300.21 AN PANIC DIS W AGORA 08/15/2013 LYNDSAY RASHEED MD 780.79 fatigue 08/15/2013 MORAIMA LOYA APRN 780.79 fatigue 08/15/2013 780.79 fatigue 08/15/2013 MORAIMA LOYA APRN 780.79 fatigue 08/15/2013 MORAIMA LOYA APRN 780.79 fatigue 08/15/2013 IVÁN CURTAIN CUTTER HAND, TEQUILA 780.79 fatigue 08/15/2013 IVÁN CURTAIN CUTTER HAND, TEQUILA 780.79 fatigue 08/15/2013 IVÁN CURTAIN CUTTER HAND, TEQUILA 780.79 FATIGUE 08/15/2013 IVÁN CURTAIN CUTTER HAND, TEQUILA 780.79 FATIGUE 08/15/2013 IVÁN CURTAIN CUTTER HAND, TEQUILA 780.79 FATIGUE 08/15/2013 SP CURTAIN CUTTER HAND, TREVER S 780.79 FATIGUE 08/15/2013 IVÁN CURTAIN CUTTER HAND, TEQUILA 780.79 FATIGUE 08/15/2013 IVÁN CURTAIN CUTTER HAND, TEQUILA 780.79 FATIGUE 08/15/2013 IVÁN CURTAIN CUTTER HAND, TEQUILA 780.79 FATIGUE 08/15/2013 SP CURTAIN CUTTER HAND, TREVER S 780.79 FATIGUE 08/15/2013 IVÁN CURTAIN CUTTER HAND, TEQUILA 780.79 FATIGUE 04/26/2014 IVÁN CURTAIN CUTTER HAND, TEQUILA 296.32 MO DEPRESSIVE RECURRENT MODERATE 04/26/2014 IVÁN CURTAIN CUTTER HAND, TEQUILA 296.32 MO DEPRESSIVE RECURRENT MODERATE 04/26/2014 IVÁN CURTAIN CUTTER HAND, TEQUILA 296.32 MO DEPRESSIVE RECURRENT MODERATE 04/26/2014 IVÁN CURTAIN CUTTER HAND, TEQUILA 296.32 MO DEPRESSIVE RECURRENT MODERATE 04/26/2014 IVÁN CURTAIN CUTTER HAND, TEQUILA 296.32 MO DEPRESSIVE RECURRENT MODERATE 04/26/2014 SP CURTAIN CUTTER HAND, TREVER S 296.32 MO DEPRESSIVE RECURRENT MODERATE 04/26/2014 IVÁN CURTAIN CUTTER HAND, TEQUILA 296.32 MO DEPRESSIVE RECURRENT MODERATE 04/26/2014 IVÁN CURTAIN CUTTER HAND, TEQUILA 296.32 MO DEPRESSIVE RECURRENT MODERATE 04/26/2014 IVÁN CURTAIN CUTTER HAND, TEQUILA 296.32 MO DEPRESSIVE RECURRENT MODERATE 04/26/2014 SP CURTAIN CUTTER HAND, TREVER S 296.32 MO DEPRESSIVE RECURRENT MODERATE 04/26/2014 IVÁN CURTAIN CUTTER HAND, TEQUILA 296.32 MO DEPRESSIVE RECURRENT MODERATE 09/25/2014 IVÁN CURTAIN CUTTER HAND, TEQUILA 723.1 PAIN NECK 09/25/2014 IVÁN CURTAIN CUTTER HAND, TEQUILA 724.1 PAIN IN THORACIC SPINE 09/25/2014 SP CURTAIN CUTTER HAND, TREVER S 723.1 PAIN NECK 09/25/2014 SP CURTAIN CUTTER HAND, TREVER S 724.1 PAIN IN THORACIC SPINE 09/25/2014 IVÁN CURTAIN CUTTER HAND, TEQUILA 723.1 PAIN NECK 09/25/2014 IVÁN CURTAIN CUTTER HAND, TEQUILA 724.1 PAIN IN THORACIC SPINE 09/25/2014 IVÁN CURTAIN CUTTER HAND, TEQUILA 723.1 PAIN NECK 09/25/2014 IVÁN CURTAIN CUTTER HAND, TEQUILA 724.1 PAIN IN THORACIC SPINE 09/25/2014 IVÁN CURTAIN CUTTER HAND, TEQUILA 723.1 PAIN NECK 09/25/2014 IVÁN CURTAIN CUTTER HAND, TEQUILA 724.1 PAIN IN THORACIC SPINE 09/25/2014 SP CURTAIN CUTTER HAND, TREVER S 723.1 PAIN NECK 09/25/2014 SP CURTAIN CUTTER HAND, TREVER S 724.1 PAIN IN THORACIC SPINE 09/25/2014 IVÁN CURTAIN CUTTER HAND, TEQUILA 723.1 PAIN NECK 09/25/2014 IVÁN CURTAIN CUTTER HAND, TEQUILA 724.1 PAIN IN THORACIC SPINE 10/14/2014 ANT HERNADEZ HOA K Ot 465.9 10/14/2014 ANT HOA K Ot 466.0 10/19/2014 TREVER SNOWDEN SERVICE DELIVERY SUPERVISOR Ot V76.12 10/30/2014 TREVER SNOWDEN SERVICE DELIVERY SUPERVISOR Ot V76.12 11/27/2014 IVÁN CURTAIN CUTTER HAND, TEQUILA 783.1 WEIGHT GAIN ABNORMAL 11/27/2014 SAMANTHA SNOWDEN APRNNDA S 783.1 WEIGHT GAIN ABNORMAL 11/27/2014 IVÁN CURTAIN CUTTER HAND, TEQUILA 783.1 WEIGHT GAIN ABNORMAL 01/01/2015 SAMANTHA SNOWDEN APRNNDA S 780.60 FEVER, UNSPECIFIED 01/01/2015 SAMANTHA SNOWDEN APRNNDA S 786.2 COUGH 01/01/2015 IVÁN CURTAIN CUTTER HAND, TEQUILA 780.60 FEVER, UNSPECIFIED 01/01/2015 IVÁN CURTAIN CUTTER HAND, TEQUILA 786.2 COUGH 01/06/2015 BAYLEE WEBSTER, LEAENN Simms Ot 305.1 01/06/2015 BAYLEE WEBSTER, LEEANN Simms Ot 490 01/06/2015 BAYLEE WEBSTER, LEEANN Simms Ot 729.1 01/06/2015 BAYLEE WEBSTER, LEEANN Simms Ot 729.82 03/21/2015 Ot 780.1 03/21/2015 Ot 781.1 07/11/2015 KATHYA WEBSTER, LYNDSAY Negron Ot 041.49 07/11/2015 KATHYA WEBSTER, LYNDSAY Negron Ot 276.51 07/11/2015 KATHYA WEBSTER, LYNDSAY Negron Ot 276.8 07/11/2015 KATHYA WEBSTER, LYNDSAY Negron Ot 305.1 07/11/2015 KATHYA WEBSTER, LYNDSAY Negron Ot 403.90 07/11/2015 KATHYA WEBSTER, LYNDSAY Negron Ot 558.9 07/11/2015 KATHYA WEBSTER, LYNDSAY Negron Ot 584.9 07/11/2015 KATHYA WEBSTER, LYNDSAY Negron Ot 585.9 07/11/2015 KATHYA WEBSTER, LYNDSAY Negron Ot 599.0 07/11/2015 KATHYA WEBSTER, LYNDSAY Negron Ot B96.20 07/11/2015 KATHYA WEBSTER, LYNDSAY Negron Ot E86.0 07/11/2015 KATHYA WEBSTER, LYNDSAY Negron Ot E87.6 07/11/2015 KATHYA WEBSTER, LYNDSAY Negron Ot F17.210 07/11/2015 KATHYA WEBSTER, LYNDSAY Negron Ot I12.9 07/11/2015 KATHYA WEBSTER, LYNDSAY Negron Ot J44.9 07/11/2015 KATHYA WEBSTER, LYNDSAY Negron Ot K52.9 07/11/2015 KATHYA WEBSTER, LYNDSAY Negron Ot N17.9 07/11/2015 KATHYA WEBSTER, LYNDSAY Negron Ot N18.9 07/11/2015 KATHYA WEBSTER, LYNDSAY Negron Ot N39.0 07/11/2015 KATHYA WEBSTER, LYNDSAY Negron Ot V03.82 07/11/2015 KATHYA WEBSTER, LYNDSAY Negron Ot V04.81 07/11/2015 KATHYA WEBSTER, LYNDSAY Negron Ot Z23 08/30/2015 TREVER SNOWDEN Ot Z12.31 01/13/2016 Ot M05.79 01/13/2016 Ot Z79.899 01/31/2016 Ot M05.79 RHEU ARTHRITIS W RHEU FACTOR MULT SITE W 01/31/2016 Ot Z79.899 OTHER BURNER TENDER (CURRENT) DRUG THERAPY 02/07/2016 Ot M05.79 RHEU ARTHRITIS W RHEU FACTOR MULT SITE W 02/07/2016 Ot Z79.899 OTHER JAIL (CURRENT) DRUG THERAPY 05/14/2016 CHRIS WEBSTER, GLENN Sims Ot E78.5 HYPERLIPIDEMIA, UNSPECIFIED 05/14/2016 GLENN PEREZ MD Ot E87.6 HYPOKALEMIA 05/14/2016 GLENN PEREZ MD Ot F17.210 NICOTINE DEPENDENCE, CIGARETTES, UNCOMPL 05/14/2016 GLENN PEREZ MD Ot G62.9 POLYNEUROPATHY, UNSPECIFIED 05/14/2016 GLENN PEREZ MD Ot I10 ESSENTIAL (PRIMARY) HYPERTENSION 05/14/2016 GLENN PEREZ MD Ot I25.10 ATHSCL HEART DISEASE OF [place] CORONARY 05/14/2016 GLENN PEREZ MD Ot M06.9 RHEUMATOID ARTHRITIS, UNSPECIFIED 05/14/2016 GLENN PEREZ MD Ot N39.0 URINARY TRACT INFECTION, SITE NOT SPECIF 05/14/2016 GLENN PEREZ MD Ot R00.0 TACHYCARDIA, UNSPECIFIED 05/14/2016 GLENN PEREZ MD Ot R11.0 NAUSEA 05/14/2016 GLENN PEREZ MD Ot R19.7 DIARRHEA, UNSPECIFIED 09/23/2016 TREVER SNOWDENP Ot Z12.39 ENCOUNTER FOR OTH SCREENING FOR MALIGNAN 09/23/2016 TREVER SNOWDEN SERVICE DELIVERY SUPERVISOR Ot Z12.31 ENCNTR SCREEN MAMMOGRAM FOR MALIGNANT NE 10/20/2016 TREVER SNOWDEN SERVICE DELIVERY SUPERVISOR Ot Z12.31 ENCNTR SCREEN MAMMOGRAM FOR MALIGNANT NE 10/26/2016 TREVER SNOWDEN SERVICE DELIVERY SUPERVISOR Ot Z12.31 ENCNTR SCREEN MAMMOGRAM FOR MALIGNANT NE 10/26/2016 TREVER SNOWDEN SERVICE DELIVERY SUPERVISOR Ot Z12.31 ENCNTR SCREEN MAMMOGRAM FOR MALIGNANT NE 10/28/2016 TREVER SNOWDENP Ot Z12.31 ENCNTR SCREEN MAMMOGRAM FOR MALIGNANT NE 01/29/2017 ANGIE LASSITER Ot I10 ESSENTIAL (PRIMARY) HYPERTENSION 01/29/2017 ANGIE LASSITER Ot I25.10 ATHSCL HEART DISEASE OF [place] CORONARY 01/29/2017 ANGIE LASSITER Ot K21.9 GASTRO-ESOPHAGEAL REFLUX DISEASE WITHOUT 01/29/2017 ANGIE LASSITER Ot R55 SYNCOPE AND COLLAPSE 02/22/2017 ANGIE LASSITER Ot I10 ESSENTIAL (PRIMARY) HYPERTENSION 02/22/2017 ANGIE LASSITER Ot I25.10 ATHSCL HEART DISEASE OF [place] CORONARY 02/22/2017 ANGIE LASSITER Ot K21.9 GASTRO-ESOPHAGEAL REFLUX DISEASE WITHOUT 02/22/2017 ANGIE LASSITER Ot R55 SYNCOPE AND COLLAPSE 03/08/2017 ANGIE LASSITER Ot I10 ESSENTIAL (PRIMARY) HYPERTENSION 03/08/2017 ANGIE LASSITER Ot I25.10 ATHSCL HEART DISEASE OF [place] CORONARY 03/08/2017 ANGIE LASSITER Ot K21.9 GASTRO-ESOPHAGEAL REFLUX DISEASE WITHOUT 03/08/2017 ANGIE LASSITER Ot R55 SYNCOPE AND COLLAPSE 03/30/2017 DALTON WEBSTER, ORLANDO Rodriguez Ot M75.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 03/30/2017 DALTON WEBSTER, OR[place]O Rodriguez Ot Z01.818 ENCOUNTER FOR OTHER PREPROCEDURAL EXAMIN Procedures Code [place] [address] ROUTINE VENIPUNCTURE 08/01/2012 54651 UA W/ CULTURE IF INDICATED 08/01/2012 92035 CBC 08/01/2012 56731 BMP 08/01/2012 [id number] GFR CALC (RESULT ONLY) 08/01/2012 31191 CULTURE URINE DARSHANA JUDD 04/2013 41292 MAMMOGRAM, SCREENING 10/25/2012 80405 PAP SMEAR 2012 Q0091 PAP SMEAR OBTAIN SMEAR 10/25/2012 15155 PSYCH DIAG EVAL W/MED SRVCS 07/12/2013 19992 SLEEP STUDY 07/13 80765 MAMMOGRAM, SCREENING 08/15/2013 01659 XRAY CERVICAL SPINE, 2 OR 3 VIEWS 09/25/2014 87250 XRAY THORACIC SPINE 3 VIEWS 09/25/2014 61094 MAMMOGRAM, SCREENING 09/28/2014 00670 ROUTINE VENIPUNCTURE 11/30/2014 13574 CBC 11/30/2014 [id number] GFR CALC (RESULT ONLY) 11/30/2014 04473 CMP 11/30/2014 42172 LIPID PANEL 11/30 62245 INFLUENZA A & B (IN-HOUSE) 01/01/2015 07675 NEBULIZER TREATMENT 02/03/2015 17362 OXIMETRY 2014 Results Test Result Range CBC WITH DIFF - 06/18/15 00:00 BASO% 0.4 % 0-2 EOS% 1.9 % 0-7.0 HCT 41.0 % 36.9-47.0 HGB 13.5 G/DL 12.0-16.0 LYMPH% 22.8 % 20-40 MCH 29.9 PG 27-31 MCHC 32.9 G/DL 33-37 MCV 90.7 FL 81-99 MONO% 4.9 % 0-10.0 MPV 9.8 FL 7.3-10.4 NEUTRO% 69.5 % 40-70 PLT 245 10^3u 130-400 RBC 4.5 10^6u 4.2-5.4 RDW 14.8 % 11.5-15.5 WBC 7.8 10^3u 4.8-10.8 NEUTRO# 5.4 10^3u 1.5-7.5 LYMPH# 1.8 10^3u 0.9-4.0 MONO# 0.4 10^3u 0-0.8 EOS# 0.2 10^3u 0-0.6 BASO# 0.0 10^3u 0-0.1 LINE DRAW - 06/18/15 00:00 IMM GRANULOCYTE % 0.5 % IMM GRANULOCYTE # 0.0 10^3u 0-5 BMP - 06/18/15 00:00 BCR 4.9 10-20 BUN 5 MG/DL 7-18 CA 9.0 MG/DL 8.4-10.2 CL 105 MEQ/L 98-107 CO2 27.3 MEQ/L 22-28 CREA 1.03 MG/DL 0.6-1.0 EGFR 55 eGFR >=60 GLU 110 MG/DL 70-105 K 4.0 MEQ/L 3.5-5.1 NA 141 MEQ/L 134-145 OSMSC 279.2 MOSML 280-300 Anion Gap 8.7 8-16 Complete urinalysis with reflex to culture - 05/13/16 09:48 Urine color determination YELLOW NRG Urine clarity determination CLEAR NRG Urine pH measurement by test strip 7 5- 9 Specific gravity of urine by test strip 1.010 1.016-1.022 Urine protein assay by test strip, semi-quantitative NEGATIVE NEGATIVE Urine glucose detection by automated test strip NEGATIVE NEGATIVE Erythrocytes detection in urine sediment by light microscopy NEGATIVE NEGATIVE Urine ketones detection by automated test strip NEGATIVE NEGATIVE Urine nitrite detection by test strip NEGATIVE NEGATIVE Urine total bilirubin detection by test strip NEGATIVE NEGATIVE Urine urobilinogen measurement by automated test strip (mass/volume) NORMAL NORMAL Urine leukocyte esterase detection by dipstick NEGATIVE NEGATIVE Automated urine sediment erythrocyte count by microscopy (number/high power field) NONE NRG Automated urine sediment leukocyte count by microscopy (number/high power field ) [HPF] NRG Bacteria detection in urine sediment by light microscopy TRACE NRG Squamous epithelial cells detection in urine sediment by light microscopy 10-25 NRG Crystals detection in urine sediment by light microscopy NONE NRG Casts detection in urine sediment by light microscopy NONE NRG Mucus detection in urine sediment by light microscopy NEGATIVE NRG Complete urinalysis with reflex to culture NO NRG Complete blood count (CBC) with automated white blood cell (WBC) differential - 05/13/16 11:42 Blood leukocytes automated count (number/volume) 10.6 10*3/ uL 4.3-11.0 Blood erythrocytes automated count (number/volume) 5.22 10*6 /uL 4.35-5.85 Venous blood hemoglobin measurement (mass/volume) 15.2 g/dL 11.5-16.0 Blood hematocrit (volume fraction) 45 % 35-52 Automated erythrocyte mean corpuscular volume 86 [foz_us] 80-99 Automated erythrocyte mean corpuscular hemoglobin (mass per erythrocyte) 29 pg 25-34 Automated erythrocyte mean corpuscular hemoglobin concentration measurement ( mass/volume) 34 g/dL 32-36 Automated erythrocyte distribution width ratio 15.4 % 10.0-14.5 Automated blood platelet count (count/volume) 374 10*3/uL 130-400 Automated blood platelet mean volume measurement 9.7 [foz_us ] 7.4-10.4 Automated blood neutrophils/100 leukocytes 71 % 42-75 Automated blood lymphocytes/100 leukocytes 22 % 12-44 Blood monocytes/100 leukocytes 7 % 0-12 Automated blood eosinophils/100 leukocytes 0 % 0-10 Automated blood basophils/100 leukocytes 0 % 0-10 Blood neutrophils automated count (number/volume) 7.5 10*3 1.8-7.8 Blood lymphocytes automated count (number/volume) 2.3 10*3 1.0-4.0 Blood monocytes automated count (number/volume) 0.7 10*3 0.0-1.0 Automated eosinophil count 0.0 10*3/uL 0.0-0.3 Automated blood basophil count (count/volume) 0.0 10*3/uL 0.0-0.1 Comprehensive metabolic panel - 05/13/16 11:42 Serum or plasma sodium measurement (moles/volume) 139 mmol/ L 135-145 Serum or plasma potassium measurement (moles/volume) 2.4 mmol/L 3.6-5.0 Serum or plasma chloride measurement (moles/volume) 101 mmol /L 98-107 Carbon dioxide 28 mmol/L 21-32 Serum or plasma anion gap determination (moles/volume) 10 mmol/L 5-14 Serum or plasma urea nitrogen measurement (mass/volume) 4 mg /dL 7-18 Serum or plasma creatinine measurement (mass/volume) 1.22 mg /dL 0.60-1.30 Serum or plasma urea nitrogen/creatinine mass ratio 3 NRG Serum or plasma creatinine measurement with calculation of estimated glomerular filtration rate 45 NRG Serum or plasma glucose measurement (mass/volume) 154 mg/dL 70-105 Serum or plasma calcium measurement (mass/volume) 10.0 mg/ dL 8.5-10.1 Serum or plasma total bilirubin measurement (mass/volume) 1.1 mg/dL 0.1-1.0 Serum or plasma alkaline phosphatase measurement (enzymatic activity/volume) 101 U/L 40-136 Serum or plasma aspartate aminotransferase measurement (enzymatic activity/ volume) 20 U/L 5-34 Serum or plasma alanine aminotransferase measurement (enzymatic activity/volume ) 22 U/L 0-55 Serum or plasma protein measurement (mass/volume) 8.0 g/dL 6.4-8.2 Serum or plasma albumin measurement (mass/volume) 4.1 g/dL 3.2-4.5 Magnesium - 05/13/16 11:42 Magnesium 1.9 mg/dL 1.8-2.4 Serum or plasma troponin i.cardiac measurement (mass/volume) - 05/13/16 11:42 Serum or plasma troponin i.cardiac measurement (mass/volume) < ng/mL <0.30 THYROID STIMULATING HORMONE - 05/13/16 11:42 THYROID STIMULATING HORMONE 2.20 u[iU]/mL 0.35-4.94 Serum or plasma thyroxine (T4) free measurement (mass/volume) - 05/13/16 11:42 Serum or plasma thyroxine (T4) free measurement (mass/volume) 1.23 ng/dL 0.70-1.48 Capillary blood glucose measurement by glucometer (mass/volume) - 05/13/16 11: 45 Capillary blood glucose measurement by glucometer (mass/volume) 151 mg/dL 70-110 Whole blood basic metabolic panel - 05/13/16 18:55 Serum or plasma sodium measurement (moles/volume) 141 mmol/ L 135-145 Serum or plasma potassium measurement (moles/volume) 3.4 mmol/L 3.6-5.0 Serum or plasma chloride measurement (moles/volume) 104 mmol /L 98-107 Carbon dioxide 29 mmol/L 21-32 Serum or plasma anion gap determination (moles/volume) 8 mmol/L 5-14 Serum or plasma urea nitrogen measurement (mass/volume) 5 mg /dL 7-18 Serum or plasma creatinine measurement (mass/volume) 1.12 mg /dL 0.60-1.30 Serum or plasma urea nitrogen/creatinine mass ratio 4 NRG Serum or plasma creatinine measurement with calculation of estimated glomerular filtration rate 50 NRG Serum or plasma glucose measurement (mass/volume) 98 mg/dL 70-105 Serum or plasma calcium measurement (mass/volume) 8.7 mg/dL 8.5-10.1 Serum or plasma troponin i.cardiac measurement (mass/volume) - 05/13/16 18:55 Serum or plasma troponin i.cardiac measurement (mass/volume) < ng/mL <0.30 Whole blood basic metabolic panel - 05/14/16 09:03 Serum or plasma sodium measurement (moles/volume) 142 mmol/ L 135-145 Serum or plasma potassium measurement (moles/volume) 3.0 mmol/L 3.6-5.0 Serum or plasma chloride measurement (moles/volume) 108 mmol /L 98-107 Carbon dioxide 28 mmol/L 21-32 Serum or plasma anion gap determination (moles/volume) 6 mmol/L 5-14 Serum or plasma urea nitrogen measurement (mass/volume) 8 mg /dL 7-18 Serum or plasma creatinine measurement (mass/volume) 0.94 mg /dL 0.60-1.30 Serum or plasma urea nitrogen/creatinine mass ratio 9 NRG Serum or plasma creatinine measurement with calculation of estimated glomerular filtration rate > NRG Serum or plasma glucose measurement (mass/volume) 117 mg/dL 70-105 Serum or plasma calcium measurement (mass/volume) 8.1 mg/dL 8.5-10.1 Whole blood basic metabolic panel - 05/14/16 14:55 Serum or plasma sodium measurement (moles/volume) 143 mmol/ L 135-145 Serum or plasma potassium measurement (moles/volume) 4.0 mmol/L 3.6-5.0 Serum or plasma chloride measurement (moles/volume) 111 mmol /L 98-107 Carbon dioxide 30 mmol/L 21-32 Serum or plasma anion gap determination (moles/volume) 2 mmol/L 5-14 Serum or plasma urea nitrogen measurement (mass/volume) 9 mg /dL 7-18 Serum or plasma creatinine measurement (mass/volume) 0.84 mg /dL 0.60-1.30 Serum or plasma urea nitrogen/creatinine mass ratio 11 NRG Serum or plasma creatinine measurement with calculation of estimated glomerular filtration rate > NRG Serum or plasma glucose measurement (mass/volume) 126 mg/dL 70-105 Serum or plasma calcium measurement (mass/volume) 8.4 mg/dL 8.5-10.1 Encounters ACCT No. Visit Date/Time Discharge Status Pt. Type Provider Facility Loc./Unit Complaint [id number] 01/15/2015 13:16:00 01/15/2015 23: 59:59 CLS Outpatient TEQUILA MINOR APRN [id number] 01/01/2015 10:37:00 01/01/2015 23: 59:59 CLS Outpatient TREVER SNOWDEN APRN [id number] 11/30/2014 13:53:00 11/30/2014 23: 59:59 CLS Outpatient TEQUILA MINOR APRN [id number] 10/18/2014 09:53:00 10/18/2014 23: 59:59 DEAN Outpatient TEQUILA MINOR APRN [id number] 10/18/2014 09:53:00 10/18/2014 23: 59:59 DEAN Outpatient TEQUILA MINOR APRN [id number] 09/25/2014 13:41:00 09/25/2014 23: 59:59 CLS Outpatient TREVER SNOWDEN APRN [id number] 08/28/2014 09:54:00 08/28/2014 23: 59:59 CLS Outpatient TEQUILA MINOR APRN [id number] 08/28/2014 09:54:00 08/28/2014 23: 59:59 CLS Outpatient TEQUILA MINOR APRN [id number] 07/27/2014 10:43:00 07/27/2014 23: 59:59 CLS Outpatient TEQUILA MINOR APRN [id number] 04/26/2014 15:51:00 04/26/2014 23: 59:59 CLS Outpatient TEQUILA MINOR APRN [id number] 04/26/2014 15:51:00 04/26/2014 23: 59:59 CLS Outpatient TEQUILA MINOR APRN [id number] 12/19/2013 16:22:00 12/19/2013 23: 59:59 CLS Outpatient MORAIMA LOYA APRN [id number] 12/19/2013 16:22:00 12/19/2013 23: 59:59 CLS Outpatient MORAIMA LOYA APRN [id number] 12/11/2013 08:28:00 12/11/2013 23: 59:59 CLS Outpatient [id number] 08/15/2013 14:59:00 08/15/2013 23: 59:59 CLS Outpatient LYNDSAY RASHEED MD [id number] 08/15/2013 14:17:00 08/15/2013 23: 59:59 CLS Outpatient MORAIMA LOYA APRN [id number] 07/06/2013 11:48:00 07/06/2013 23: 59:59 CLS Outpatient MORAIMA LOYA APRN [id number] 10/24/2012 09:56:00 10/24/2012 23: 59:59 CLS Outpatient CORTEZ CARREON DO [id number] 10/17/2012 09:33:00 10/17/2012 23: 59:59 [place] [id number] 08/01/2012 10:53:00 08/01/2012 23: 59:59 CLS Outpatient CORTEZ CARREON DO [id number] 08/01/2012 10:53:00 08/01/2012 23: 59:59 CLS Outpatient
--- OUTSIDE RECORDS SUMMARY | 2017-04-01 18:46 | XMS REPORT ---
Author Author LORI SNOWDEN Organization [employer] Address Unknown Phone Unavailable Care Team Providers Care Scientist Electronics Name Role Phone LORI SNOWDEN CP Unavailable [...]
--- OUTSIDE RECORDS SUMMARY | 2017-04-01 18:47 | XMS REPORT ---
Author Author TATA GOOD Organization [employer] Address Unknown Phone Unavailable Care Team Providers Care Gasoline Attendant Name Role Phone TATA GOOD CP Unavailable [...] Start Date End Date Status Dosage Xanax [facility] [address]-26 1 MG Orally Three times a day as needed December 11, 2014 take 1 tablet Results No Known Results Summary Purpose [employer] Submission
--- OUTSIDE RECORDS SUMMARY | 2017-04-01 18:47 | XMS REPORT ---
Author Author TEQUILA MINOR [facility] [employer] Address Unknown Phone Unavailable Care Team Providers Care Nurse Emergency Name Role Phone TEQUILA MINOR CP Unavailable [...] Start Date End Date Status Dosage Ritalin [facility] [address]-[address] Qureshi to sign for Winnie Three times per day Jun 28, 2015 1 tablet Results No Known Results Summary Purpose [employer] Submission
--- OUTSIDE RECORDS SUMMARY | 2017-04-01 18:47 | XMS REPORT ---
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 Assessment Generalized anxiety disorder 300.02 Active Problem Fever, unspecified 780.60 Active Problem Cough 786.2 Active Problem Agoraphobia with panic disorder 300.21 Active Problem Dysuria 788.1 Active Problem Major depressive disorder, recurrent episode, severe, without mention of psychotic behavior 296.33 Active Problem Dizziness and giddiness 780.4 Active Medications Medication Code System Code Instructions Start Date End Date Status Dosage Xanax [facility] [address]-87 1 MG Orally 3 times a day PRN PANIC AND ANXIETY MUST LAST 30 DAYS December 11, 2014 take 1 tablet Ritalin [facility] [address]-36 10 MG Orally Twice a day Jun 28, 2015 1 tablet Metoprolol Succinate ER [facility] [address]-22 25 MG Orally Once a day 1 tablet Atorvastatin Calcium [facility] [address]-41 40 MG Orally Once a day 1 tablet Multivitamins [facility] 9[address] Orally not defined Abilify [facility] [address]-52 5 MG Orally Once a day 1 tablet Norvasc [facility] [address]-31 5 MG Orally Once a day 1 tablet Omeprazole [facility] [address]-01 40 MG Orally Once a day 1 capsule Xeljanz [facility] [address]-40 5 mg December 19, 2013 1 Tablet by Oral route 2 times per day ProAir HFA [facility] [address]-82 90 mcg/actuation January 01, 2015 2 puffs by Inhalation route 4 times per day for 30 day(s) PRN shortness of breath Effexor XR [facility] [address]-64 75 MG Orally twice a day February 22, 2015 1 capsule with food Ambien [facility] [address]-61 5 MG Orally Once a day April 30, 2015 1 tablet at bedtime Mobic [facility] [address]-89 7.5 mg Nov 20, 2014 take 1 tablet by Oral route 2 times per day Symbicort [facility] [address]-42 80-4.5 mcg/actuation Oct 29, 2014 2 puffs by Inhalation route 2 times per day for 30 day(s) Calcium 600 + D [facility] 27[address]45 600-200 MG-UNIT Orally not defined Tramadol HCl [facility] [address]-21 50 MG Orally 4 times a day 1 tablet as needed Albuterol Sulfate [facility] [address]-99 2.5 mg /3 mL (0.083 %) Jul 23, 2014 1 Each by Inhalation route every 4 hours for cough and wheeze PRN for wheezing or cough Procedures Procedure Coding System Code Date Office Visit, Est Pt., Level 3 CPT-4 12538 Jun 28, 2015 [facility] VIS[facility] ESTABLISHED PATIENT CPT-4 G0467 Jun 28, 2015 Vital Signs Date/Time: Jun 28, 2015 Temperature 98.0 F Weight 240.3 lbs Height 67 in BMI 37.63 Index Blood Pressure Diastolic 80 mmHg Blood Pressure Systolic 130 mmHg Cardiac Monitoring Heart Rate 72 bpm Results No Known Results Summary Purpose [employer] Submission
--- OUTSIDE RECORDS SUMMARY | 2017-04-01 18:47 | XMS REPORT | Clinical Summary ---
Author Author Admin, [facility] Organization [facility] Address Unknown Phone Unavailable Allergies, [...] 1 tab by mputh daily METHYLPHENIDATE HCL 17379944817 Active Aaliyah Elder Active RITALIN 20 MG ORAL TABS 1 tab by mouth twice daily METHYLPHENIDATE HCL 42764001918 Active Aaliyah Elder Active NORVASC 5 MG ORAL TABS 1 qd AMLODIPINE BESYLATE 84110772817 No Longer Active Aaliyah Elder Active PROAIR HFA 108 (90 BASE) MCG/ACT INH AERS prn ALBUTEROL SULFATE 80055462533 Active Parris Jordan MD Active SYMBICORT 80-4.5 MCG/ACT INH AERO 2 puffs daily BUDESONIDE- FORMOTEROL FUMARATE 47224312198 Active Parris Jordan MD Active [facility] DAILY MULTIPLE ORAL TABS 1 qd MULTIPLE VITAMIN 64295939459 Active Parris Jordan MD Active CALCIUM 600 MG ORAL TABS 1 qd CALCIUM 12202680702 Active Parris Jordan MD Active [facility] D3 CAPS 1 qd CHOLECALCIFEROL CAPS 66704537970 Active Parris Jordan MD Active EFFEXOR XR 75 MG ORAL HC61H-OTR 1 qd VENLAFAXINE HCL 97126881721 Active Parris Jordan MD Active XELJANZ 5 MG ORAL TABS 1 bid TOFACITINIB CITRATE 54533481430 Active Parris Jordan MD Active MELOXICAM 7.5 MG ORAL TABS 2 qd MELOXICAM 49294680300 Active Parris Jordan MD Active ATORVASTATIN CALCIUM 40 MG ORAL TABS 1 qd ATORVASTATIN CALCIUM 05203815040 Active Parris Jordan MD Active LOPRESSOR TABS 25 mg 1 bid METOPROLOL TARTRATE TABS 80884273786 Active Parris Jordan MD Active ALPRAZOLAM 1 MG ORAL TABS 1 tid ALPRAZOLAM 71339609024 Active Parris Jordan MD Active ABILIFY 5 MG ORAL TABS 1 qd ARIPIPRAZOLE 51590151802 Active Parris Jordan MD Active TRAMADOL HCL 50 MG ORAL TABS 4x a day TRAMADOL HCL 84124921668 Active Parris Jordan MD Active OMEPRAZOLE 40 MG ORAL CPDR 1 qd OMEPRAZOLE 59566154860 Active Parris Jordan MD Active NORVASC 5 MG ORAL TABS 1 qd NORVASC 5 MG ORAL TABS 982741 AMLODIPINE BESYLATE Inactive Advance Directives Directive Description [...] 1.005 Encounters Code Encounter Date Provider Facility CPT-71800 Level 3 Est. Patient 16:52:25 CDT Parris Jordan MD [facility] CPT-00957 Level 3 Est. Patient 17:13:41 CDT Parris Jordan MD [facility] CPT-64586 Level 4 New Patient 22:47:28 CDT Parris Jordan MD [facility] Procedures Code Procedure Name Date Entry Date Standard Description CPT-05138 Postop F/U Visit 11:51:38 CDT CPT-97613 Interstim trial 17:13:41 CDT
--- OUTSIDE RECORDS SUMMARY | 2017-04-01 18:47 | XMS REPORT ---
Author Author TATA GOOD Organization [employer] Address Unknown Phone Unavailable Care Team Providers Care Salon Shampoo Assistant Name Role Phone TATA GOOD CP Unavailable [...] Start Date End Date Status Dosage Ritalin [facility] [address]-16 20 mg Orally daily Sep 13, 2015 1 tablet every am and 1/2 tab at noon, 1/2 tab at 1500. Results No Known Results Summary Purpose [employer] Submission
--- OUTSIDE RECORDS SUMMARY | 2017-04-01 18:47 | XMS REPORT ---
Author Author TEQUILA MINOR Organization [employer] Address Unknown Phone Unavailable Care Team Providers Care Refrigeration Manager Name Role Phone TEQUILA MINOR CP Unavailable [...] Start Date End Date Status Dosage Ritalin [facility] [address]-06 10 MG Orally Twice a day Dr. Qureshi to sign for Winnie Jun 28, 2015 1 tablet Results No Known Results Summary Purpose [employer] Submission
--- OUTSIDE RECORDS SUMMARY | 2017-04-01 18:47 | XMS REPORT ---
Author Author KEIKO RASCON [facility] [employer] Address Unknown Phone Unavailable Care Team Providers Care Ssds Mk 2 Advanced Operator Name Role Phone KEIKO RASCON Unavailable Allergies [...] Start Date End Date Status Dosage Ritalin [facility] [address]-87 20 MG Orally Twice a day in morning and 1500 Sep 13, 2015 1 tablet on an empty stomach Ritalin [facility] [address]-29 10 MG Orally. Once a day at noon Jun 28, 2015 1 tablet Xanax [facility] [address]-63 1 MG Orally 3 times a day PRN PANIC AND ANXIETY December 11, 2014 take 1 tablet Results No Known Results Summary Purpose [employer] Submission
--- OUTSIDE RECORDS SUMMARY | 2017-04-01 18:48 | XMS REPORT | CCD ---
Author Author TREVER BECK Organization Unknown Address [address] [place], [place] [id number] Care Team Providers Care Kitchen Porter Name Role Phone Hilda COLE MD Attphys Vital Signs Unknown or Not Available. Allergies Allergy Code Allergy Type Reaction Status SOLU MEDROL 0 Drug allergy Active CODEINE 0 Drug allergy Active HYDROCODONE 0 Drug allergy Active DOXYCYCLINE 0 Drug allergy Active Procedures Procedure Code Procedure Type Date CYSTOSCOPY NEC 5732 ICD-9 CM, Volume 3 04/08/2015 History of Immunizations Immunization Code Date Hep B, adult 43 12/26/1998 Hep B, adult 43 03/13/1999 Hep B, adult 43 08/28/1999 Influenza, seasonal, injectable 141 10/17/2012 Problems Unknown or Not Available. Results Unknown or Not Available. Active Medications Unknown or Not Available. Medications Administered During Visit Unknown or Not Available. 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 You had the following procedures done: CYSTOSCOPY You were discharged from [facility] on 04/08/2015. Should you have any questions prior to discharge, please contact a member of your healthcare team. If you have left the hospital and have any questions, please contact your primary care physician. Chief Complaint and Reason For Visit Chief Complaint Date of Onset CYSTOSCOPY Function Status Unknown or Not Available. Plan of Care Unknown or Not Available. Referral/Transition of Care Unknown or Not Available.
--- OUTSIDE RECORDS SUMMARY | 2017-04-01 18:48 | XMS REPORT ---
Author Author TATA GOOD Organization [facility] Address [address] [place] [address] Care Team Providers Care Unit Control Clerk Name Role Phone TATA OGOD Unavailable PROBLEMS Type Condition ICD9-CM Code [id number] Code Onset Dates Condition Status SNOMED Code Problem Generalized anxiety disorder F41.1 Active 27923437 Problem Dysthymic disorder F34.1 Active 41363113 Problem Asthma J45.909 Active 519669919 Problem Hypertension I10 Active 93618173 Problem Chronic pain syndrome G89.4 Active 203120726 Problem ADHD (attention deficit hyperactivity disorder), combined type F90.2 Active 87455925 Problem Rheumatoid arthritis M06.9 Active 09786392 Problem Weight gain R63.5 Active 5550691 ALLERGIES Unknown Allergies SOCIAL HISTORY No smoking Hx information available PLAN OF CARE VITAL SIGNS MEDICATIONS Medication Instructions Dosage Frequency Start Date End Date Duration Status Xanax 1 MG Orally Three times a day as needed take 1 tablet Dec, Active RESULTS No Results PROCEDURES No Known procedures IMMUNIZATIONS No Known Immunizations
--- OUTSIDE RECORDS SUMMARY | 2017-04-01 18:48 | XMS REPORT | Clinical Summary ---
Author Author Admin, QIE Organization [facility] Address Unknown Phone Unavailable Allergies, [...] Take one by mouth daily NITROFURANTOIN MACROCRYSTAL 54582154029 Active Saima Blum Active TRULICITY 0.75 MG/0.5ML SC SOPN .qwk DULAGLUTIDE 32603188317 Active Parris Jordan MD Active ZETIA 10 MG ORAL TABS Take one by mouth daily EZETIMIBE 25410847868 Active Parris Jordan MD Active ABILIFY 5 MG ORAL TABS 1 qd ARIPIPRAZOLE 13194683799 No Longer Active Parris Jordan MD Active MELOXICAM 7.5 MG ORAL TABS 2 qd MELOXICAM 10188331339 No Longer Active Parris Jordan MD Active SYMBICORT 80-4.5 MCG/ACT INH AERO 2 puffs daily BUDESONIDE-FORMOTEROL FUMARATE 74744362946 No Longer Active Parris Jordan MD Active RITALIN 10 MG ORAL TABS 1 tab by mputh daily METHYLPHENIDATE HCL 19363188546 Active Aaliyah Elder Active RITALIN 20 MG ORAL TABS 1 tab by mouth twice daily METHYLPHENIDATE HCL 06024277618 Active Aaliyah Elder Active NORVASC 5 MG ORAL TABS 1 qd AMLODIPINE BESYLATE 76066683121 No Longer Active Aaliyah Alvares Active PROAIR HFA 108 (90 BASE) MCG/ACT INH AERS prn ALBUTEROL SULFATE 99511600663 Active Parris Jordan MD Active [facility] DAILY MULTIPLE ORAL TABS 1 qd MULTIPLE VITAMIN 45682376269 Active Parris Jordan MD Active CALCIUM 600 MG ORAL TABS 1 qd CALCIUM 05701119672 Active Parris Jordan MD Active [facility] D3 CAPS 1 qd CHOLECALCIFEROL CAPS 03363606811 Active Parris Jordan MD Active EFFEXOR XR 75 MG ORAL [id number]-BRC 1 qd VENLAFAXINE HCL 99693017232 Active Parris Jordan MD Active XELJANZ 5 MG ORAL TABS 1 bid TOFACITINIB CITRATE 66847761807 Active Parris Jordan MD Active ATORVASTATIN CALCIUM 40 MG ORAL TABS 1 qd ATORVASTATIN CALCIUM 74648677791 Active Parris Jordan MD Active LOPRESSOR TABS 25 mg 1 bid METOPROLOL TARTRATE TABS 72483599396 Active Parris Jordan MD Active ALPRAZOLAM 1 MG ORAL TABS 1 tid ALPRAZOLAM 82607776871 Active Parris Jordan MD Active TRAMADOL HCL 50 MG ORAL TABS 4x a day TRAMADOL HCL 96506101769 Active Parris Jordan MD Active OMEPRAZOLE 40 MG ORAL CPDR 1 qd OMEPRAZOLE 14630492347 Active Parris Jordan MD Active NORVASC 5 MG ORAL TABS 1 qd NORVASC 5 MG ORAL TABS 013329 AMLODIPINE BESYLATE Inactive SYMBICORT 80-4.5 MCG/ACT INH AERO 2 puffs daily SYMBICORT 80-4.5 MCG/ACT INH AERO BUDESONIDE-FORMOTEROL FUMARATE Inactive MELOXICAM 7.5 MG ORAL TABS 2 qd MELOXICAM 7.5 MG ORAL TABS 048580 MELOXICAM Inactive ABILIFY 5 MG ORAL TABS 1 qd ABILIFY 5 MG ORAL TABS 131487 ARIPIPRAZOLE Inactive Advance Directives Directive Description Start Date PERMISSION TO SHARE Vital Signs Date Name Value Unit Range Description blood pressure, diastolic - 8462-4 87 mm[Hg] BP robert blood pressure, systolic - 8480-6 149 mm[Hg] BP sys pulse rate E&M - 8867-4 112 /min Heart rate temperature E&M 95.5 [degF] Body temperature weight E&M - 3141-9 199.6 [lb_av] Weight Measured blood pressure, diastolic - [...] protein, urine, semiquantitative (dipstick) negative Office Visit: 3 month followup InterStim implant - Chemistry RBC, urine, dipstick negative protein, total urine random negative mg/dL Office Visit: 3 month followup InterStim implant - Urinalysis pH, urine, semiquantitative 5 specific [...] 1.010 Encounters Code Encounter Date Provider Facility CPT-66098 Level 3 Est. Patient 17:26:39 MARKER ASSEMBLER Parris Jordan MD [facility] CPT-49499 Level 3 Est. Patient 16:17:17 CDT [address] [facility] CPT-51229 Level 3 Est. Patient 16:06:50 CDT Parris Jordan MD [facility] CPT-32213 Level 3 Est. Patient 16:52:25 CDT Parris Jordan MD [facility] CPT-35741 Level 3 Est. Patient 17:13:41 CDT Parris Jordan MD [facility] CPT-35089 Level 4 New Patient 22:47:28 CDT Parris Jordan MD [facility] Procedures Code Procedure Name Date Entry Date Standard Description CPT-69695 Bladder Scan 16:17:18 CDT CPT-55543 Bladder Scan 16:06:50 CDT CPT-59305 Postop F/U Visit 11:51:38 CDT [facility]-08532 Interstim trial 17:13:41 CDT
== END 2017-03-31 13:10 | disposition home or self-care (01) ==
LOC: SDC 10:18
PROVIDERS: ATTEND Orthopaedic Surgery
DX: M75.02 Adhesive capsulitis of left shoulder (principal); Z11.2 Encounter for screening for other bacterial diseases; M06.9 Rheumatoid arthritis, unspecified; M81.0 Age-related osteoporosis without current pathological fracture; F41.9 Anxiety disorder, unspecified; M19.90 Unspecified osteoarthritis, unspecified site; F32.9 Major depressive disorder, single episode, unspecified; I25.10 Atherosclerotic heart disease of native coronary artery without angina pectoris; I10 Essential (primary) hypertension; E78.00 Pure hypercholesterolemia, unspecified; K21.9 Gastro-esophageal reflux disease without esophagitis; J45.909 Unspecified asthma, uncomplicated; Z79.899 Other long term (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; Z87.891 Personal history of nicotine dependence; G47.33 Obstructive sleep apnea (adult) (pediatric); Z86.73 Personal history of transient ischemic attack (TIA), and cerebral infarction without residual deficits
CPT/HCPCS: 87081

== ENCOUNTER 2017-05-07 10:13 | Inpatient (IN) | payer MEDICAID, MEDICARE ==
[~2017-05-07] VITALS: Ht 167.6 cm; Wt 90.9 kg
[~2017-05-07 10:13] MED LIST changes: -LACTATED RINGERS 1,000 ML IV PRN; -LIDOCAINE PF 2% 5 ML (XYLOCAINE) VIAL ONE; -ONDANSETRON 4 MG/2 ML (SDV) Z0FRAN ONE; -fentaNYL INJECTION 100 MCG/2 ML AMP ONE; -proPOfol 200 MG/20 ML (DIPRIVAN) VIAL IV ONE
[2017-05-07 14:07] VITALS: BP 140/82
[2017-05-07] MEDS ORDERED: RT-ALBUTEROL SULF 2.5 MG/3 ML PRE-MIX VIAL IH PRN (14:30)
[2017-05-07] MEDS ORDERED: CYCLOBENZAPRINE 10 MG (FLEXERIL) TAB PO PRN (14:30)
[2017-05-07] MEDS ORDERED: RT-ALBUTEROL HFA (VENTOLIN) PER PUFF IH PRN (14:30)
[2017-05-07] MEDS ORDERED: ALBU2.5V4 NEB (15:25)
--- NOTE | 2017-05-07 15:54 | Occupational Therapy Eval ---
OT Evaluation-General/PLF Medical Diagnosis Admission Date May 07, 2017 at 13:52 Medical Diagnosis: poss stroke Onset Date: May 03, 2017 Therapy Diagnosis Therapy Diagnosis: decreased self care skills Height/Weight Height (Feet): 5 Height (Inches): 6.00 Weight (Pounds): 183 Weight (Ounces): 6.0 Referral Physician: Marco Medical History Pertinent Medical History: HTN, Rheumatoid Arthritis Additional Medical History hyperlipidemia, bladder stimulator, RA Reviewed History: Yes Social History Home: Apartment Current Living Status: Alone Entry Into Home: Level Entry ADL-Prior Level of Function ADL PLOF Comments Pt reports being independent prior to admission to hospital. Was not using an assistive device for mobility. Pt does the cooking, cleaning, and grocery shopping. Friend lives next door and checks on her frequently DME/Equipment: Bath Chair, Grab Bars, Tub/Shower Drive Self: Yes (Pt states she can drive, but does not have to. Her friend can drive her if necessary) OT Current Status Subjective Pt agrees to therapy this pm. No c/o pain, but reports fatigue at end of session. Mental Status/Objective Patient Orientation: Person, Place, Situation Current Glasses/Contacts: Yes Hearing Aids: No Dentures/Partials: Yes Hand Dominance: Right Upper Extremity ROM Right UE WFL Left UE- decreased shoulder ROM. Pt states she had a frozen shoulder and manipulation. Has been going to outpatient therapy Upper Extremity Coordination Intact Upper Extremity Strength Right UE WFL Left UE grossly 4/5 ADL-Treatment ADL-Current Pt participated in UE assessment while seated. Pt combed hair with set up and increased time while seated EOB. Gait to restroom with FWW. Pt transferred to toilet with CGA for safety. Able to manage toileting hygiene, but requires CGA for balance during clothing management. Transfer to walk in shower with CGA using grab bars, cues for safety. [place] clothing with CGA for lower body dressing. Seated shower completed using hand held shower. Pt able to wash all areas; Required CGA for balance during standing to wash buttocks. Pt donned pullover shirt with minimal assistance to pull down in back. Donned Depends with CGA for standing balance. Pt required minimal assistance for donning shorts secondary to wanting to stand to don them. Minimal assistance required for balance while threading LE into shorts. Pt donned bilateral socks with set up. Oral care completed standing at sink with SBA. Pt fatigues quickly with activity and requires occasional rest breaks throughout treatment. Pt in bed with needs met and visitors present after session. Co-treat with PT [id number]. OT focusing on ADL completion and sequencing with PT focusing on static and dynamic sitting and standing balance during ADL tasks. Functional [place] Measure 0=Not Assessed/NA 4=Minimal Assistance 1=Total Assistance 5=Supervision or Setup 2=Maximal Assistance 6=Modified [place] 3=Moderate Assistance 7=Complete IndependenceIRFPAI Quality Coding Scale 6 Independent with activity with or without an assistive device 5 Patient requires set up or clean up by helper. Patient completes activity by themselves 4 Supervision or touching assist (CGA). [place] provide cues , steadying assist 3 The helper provides less than half the effort to complete the activity 2 The helper provides more than half the effort to complete the activity 1 Dependent. The helper does all the effort to complete an activity 7 Patient refused to complete or attempt activity 9 The patient did not perform the activity before the current illness or injury 88 Not attempted due to Medical conditions or safety concerns Grooming (FIM): 5 Oral Hygiene (QC): 4 Bathing (FIM): 4 (CGA) Shower/Bathe Self (QC): 4 Upper Body Dressing (FIM): 4 Upper Body Dressing (QC): 3 Lower Body Dressing (FIM): 4 Lower Body Dressing (QC): 3 On/Off Footwear (QC): 5 Toileting (FIM): 4 Toileting Hygiene (QC): 4 (CGA) Toilet/Commode Transfer (FIM): 4 Toilet Transfer (QC): 4 (CGA) Shower Transfer (FIM): 4 (CGA) Education OT Patient Education: Rehab process Teaching Recipient: Patient Teaching Methods: Discussion Response to Teaching: Verbalize Understanding OT Short Term Goals Short Term Goals Time Frame: May 14, 2017 Bathing(FIM): 5 Upper Body Dressing(FIM): 5 Lower Body Dressing(FIM): 5 Toileting(FIM): 5 Toilet/Commode Transfer(FIM): 5 Additional Short Term Goals: 2-Verbalize Understanding, 3-ImproveStrength/[place] 1=Demonstrate adherence to instructed precautions during ADL tasks. 2=Patient will verbalize/demonstrate understanding of assistive devices/ modifications for ADL. 3=Patient will improve strength/tolerance for activity to enable patient to perform ADL's. OT Nursing Home Goals Chrome Tanning Drum Operator Goals Time Frame: May 28, 2017 Eating (FIM): 6 Eating (QC): 6 Groomin Oral Hygiene (QC): 6 Bathing(FIM): 6 Shower/Bathe Self (QC): 6 Upper Body Dressing(FIM): 6 Upper Body Dressing (QC): 6 Lower Body Dressing(FIM): 6 Lower Body Dressing (QC): 6 On/Off Footwear (QC): 6 Toileting(FIM): 6 Toileting Hygiene (QC): 6 Toilet/Commode Transfer(FIM): 6 Toilet/Commode Transfer (QC): 6 Shower Transfer(FIM): 6 Additional Goals: 2-Verbalize Understanding, 3-ImproveStrength/[place] 1=Demonstrate adherence to instructed precautions during ADL tasks. 2=Patient will verbalize/demonstrate understanding of assistive devices/ modifications for ADL. 3=Patient will improve strength/tolerance for activity to enable patient to perform ADL's. OT Education/Plan Problem List/Assessment Assessment: Decreased Activ Tolerance, Decreased UE Strength, Dependent Transfers, Impaired Self-Care Skills Pt demonstrates decreased ADL functioning, mobility, strength and activity tolerance. Pt to benefit from skilled OT intervention for ADL training, transfers, strengthening, and home safety education to maximize level of function and allow safe return home. Discharge Recommendations Plan/Recommendations: Continue POC Treatment Plan/Plan of Care Treatment,Training & Education: Yes Patient would benefit from OT for education, treatment and training to promote independence in ADL's, mobility, safety and/or upper extremity function for ADL' s. Plan of Care: ADL Retraining, Functional Mobility, Group Exercise/Act as Ind, UE Funct Exercise/Act Treatment Duration: May 28, 2017 Frequency: At least 5-7 days/Wk (IRF) Estimated Hrs Per Day: 1.5 hours per day Agreement: Yes Rehab Potential: Good Time/GCodes Start Time: 14:00 Stop Time: 15:30 Total Time Billed (hr/min): 80 Billed Treatment Time 1, visit, EVM (10minutes) [id number] 1, visit ADLx4(60minutes), FA(10minutes) [id number] Co-treat with PT SINDHU SILVERIO OT May 07, 2017 15:54
--- NOTE | 2017-05-07 15:56 | ST Cognitive Linguistic Eval ---
Speech Evaluation-General Medical Diagnosis CVA Onset Date: May 07, 2017 Therapy Diagnosis Therapy Diagnosis: Mild Dysarthria Referral Referring Physician: Dr. Gaurav Lara Reason for Referral: Evaluation/Treatment Cognitive Evaluation Medical History Pertinent Medical History: HTN, Rheumatoid Arthritis Reviewed History: Yes Social History Home: Single Level (Per patient, she resides in a handicap accessible apartment.) Current Living Status: Alone (With dog.) Speech PLF-Current Status Prior Level of Function The patient denied challenges with speech, language, or cognition prior to admission. Subjective The patient was recently admitted to [facility] following an acute ischemic CVA. The patient greeted the clinician appropriately and was agreeable to participation in the cognitive evaluation. The patient had her mother present for the duration of the evaluation. Language Eval: Auditory Comprehends Simple Yes/No Ques: Functional Indent/Objects Multiple Sahu: Functional Ident/Pics in Multiple Sahu: Functional Follows 1-Step Commands: Functional Follows Complex Directions: Functional Follows General Conversations: Functional Language Eval: Verbal Language Completes Spontaneous Greeting: Functional Produces Auto, Serial Info: Functional Imitates Simple Words/Phrases: Functional Word Finding: Functional Requests Basic Needs: Functional States Basic Personal Info: Functional Expresses Complex Ideas: Functional Cognitive Patient Orientation The patient was independently oriented to month, day of week, date, and year. Objective Cognitive Domain Attention: WNL Memory: WNL Problem Solving: Mild Executive Functions: Mild Objective Oral Motor/Speech Production A minimal left labial droop was present at rest. The patient reported intermittent "slurring" of speech (per patient, "my daughter said it sounds like I'm really tired."), however, the clinician did not observe specific dysarthric characteristics. Impression The patient displays minimally imprecise articulation secondary to mild facial weakness (left). Communication/Social Cognition Comprehension: 5 Expression: 5 Social Interaction: 6 Problem Solvin Memory: 5 Speech Patient Assess Expression of Ideas/Wants: Expression (4) Understanding [place] Content: Understands (4) Brief Interview-Mental Status: Yes Repetition of Three Words: Three (3) Temporal Orientation: Year: Correct (3) Temporal Orientation: Month: Accurate within 5 days(2) Temporal Orientation: Day: Correct (1) Recall : Wear to say "Sock": Yes, no cue required (2) Recall : Color: Yes, no cue required (2) Recall : Bed: Yes, no cue required (2) Speech Short Term Goals Short Term Goals Short Term Goals 1. The patient will demonstrate oral motor exercises with 90% accuracy, independently. Time Frame-STG: Two Days Speech Group Home Goals Pressure Test Operator Goals 1. The patient will display increased intelligibility for improved expressive communication. Time Frame: Five Days Speech-Plan Treatment Plan Speech Therapy Treatment Plan: Continue Plan of Care Continue skilled speech pathology to target lingual and labial strengthening through oral motor exercises. Frequency: Modified Program (IRF) Estimated Hrs Per Day: .5 hour per day Rehab Potential: Good Safety Risks/Education Teaching Recipient: Patient, Family Teaching Methods: Discussion Response to Teaching: Verbalize Understanding Education Topics Provided: Results, Recommendations, Plan of Care Time Speech Therapy Time In: 15:30 Speech Therapy Time Out: 15:50 Total Billed Time: 20 Billed Treatment Time 1, MORAIMA WILBURN May 07, 2017 15:56
--- NOTE | 2017-05-07 15:58 | Physical Therapy Evaluation ---
PT Evaluation-General Medical Diagnosis Admission Date May 07, 2017 at 13:52 Medical Diagnosis: CVA Onset Date: May 03, 2017 Therapy Diagnosis Therapy Diagnosis: weakness/abn gait Height/Weight Height (Feet): 5 Height (Inches): 6.00 Weight (Pounds): 183 Weight (Ounces): 6.0 Precautions Precautions/Isolations: Standard Precautions Referral Physician: Marco Reason for Referral: Evaluation/Treatment Medical History Pertinent Medical History: HTN, Rheumatoid Arthritis Additional Medical History bladder stimulator Current History Pt admittted post CVA; she did receive TPA. Reviewed History: Yes Social History Home: Apartment Current Living Status: Alone Entry Into Home: Level Entry Pt's next door neighbor checks on her frequently and helps as needed. Prior/Core FIM Prior Level of Function Functional [place] Measure 0=Not Assessed/NA 4=Minimal Assistance 1=Total Assistance 5=Supervision or Setup 2=Maximal Assistance 6=Modified [place] 3=Moderate Assistance 7=Complete [place] Bed Mobility: 7 Transfers (B,C,W/C) (FIM): 7 Gait: 7 Her friend typically drives, but she says she can drive. IADL"s; no AD. PT Evaluation-Current Subjective Agreeable to PT. Expresses during treatment that she is fatigued. No complaints of pain. Objective Patient Orientation: Person, Place, Time, Situation Problem Solving: Fair ROM/Strength ROM Lower Extremities WFL Strenght Lower Extremities Right LE is grossly 5/5 throughout; left LE is grossly 3/5 throughout. Able to move through full range but breaks with manual muscle testing. Integumentary/Posture Integumentary Refer to nursing notes. Bowel Incontinence: No Bladder Incontinence: Yes (stress incont; bladder stimulator) Posture normal and symmetrical Neuromuscular (Tone, Coordination, Reflexes) decreased functional coordination left LE with transfers and gait. Sensory Vision: Wears Glasses Hearing: Functional Hand Dominance: Right Sensation Right Lower Extremit: Intact Sensation Left Lower Extremity: Intact Transfers Functional [place] Measure 0=Not Assessed/NA 4=Minimal Assistance 1=Total Assistance 5=Supervision or Setup 2=Maximal Assistance 6=Modified [place] 3=Moderate Assistance 7=Complete IndependenceIRFPAI Quality Coding Scale 6 Independent with activity with or without an assistive device 5 Patient requires set up or clean up by helper. Patient completes activity by themselves 4 Supervision or touching assist (CGA). [place] provide cues , steadying assist 3 The helper provides less than half the effort to complete the activity 2 The helper provides more than half the effort to complete the activity 1 Dependent. The helper does all the effort to complete an activity 7 Patient refused to complete or attempt activity 9 The patient did not perform the activity before the current illness or injury 88 Not attempted due to Medical conditions or safety concerns Transfers (B, C, W/C) (FIM): 4 Scootin Roll Left to Right (QC): 5 Supine to/from Sit: 4 (CGA for safety) Sit to/from Stand: 4 (CGA for safety) bed t/f WC(FIM only if WC use): 4 Sit to Lying (QC): 4 Lying to Sitting/Side of Bed(Q: 4 Sit to Stand (QC): 4 Chair/Upp-sy-Guhrx Xfer(QC): 4 Car Transfer (QC): 4 (per family report) Pt needs light asssit with transfers and primarily CGA for safety and tactile cues to assist with sequencing. Gait Does the Patient Walk?: Yes Mode of Locomotion: Walk Anticipated Mode of Locomotion: Walk Gait (FIM): 2 Distance (FIM): 9=515-56 ft (125 ft) Walk 10 feet (QC): 4 (in room and in/out of bathroom with FWW with CGA) Walk 50 ft with 2 Turns(QC): 4 Walk 150 ft (QC): 88 Walking 10ft/uneven surface-QC: 4 Gait Assistive Device: FWW Wheelchair Training Does the Pt Use a Wheelchair?: No Stairs Stairs (FIM): 1 #of Steps: 1 1 Step (curb) (QC): 4 4 Steps (QC): 88 Assistive Device: Walker 12 Steps (QC): 88 Balance Sitting Static: Fair Sitting Dynamic: Fair Standing Static: Fair Standing Dynamic: Fair Picking up an Object (QC): 88 Treatment Co treat with OT this treatment due to patients need for skilled cues for multiple tasks and as OT was addressing ADL's such as bathing and dressing, PT addressed static and dynamic standing and seated balance. Pt tended to attempt transfers and balance activities that were unsafe without CGA or safety cues. Pt working on functional balance with seated in shower and performing sit to stand transfers; she also stood to dress and working on stepping into her clothes requiring min assist for balance maintenance and heavy cues for safety; whilst OT was addressing the sequencing of dressing and shower tasks. Pt ambulated in and about her room multiple times during treatment with FWW with CGA. Stood at sink to brush her teeth with CGA; toilteted as well with PT addressing the safety issue and balance activities as OT addresses the maintenance of clothing . Pt benefitted from cotreatment this date due to the increased need for cues for ADL"s as well as safety and functional balance skills. Assessment/Needs Pt presents post CVA with noted left sided weakness. She demonstrates balance deficits as well. She also required a fair amount of skilled cues for safety measures and safety awareness. ; She will beneift from skilled PT intervnetion to focus on functional strength, balance, safety and functional activity tolerance to allow her to return home as before. Eval of moderate intensity: comorbidities: RA, bladder stimulator and lives alone: Areas affected: Left LE strength, balance and safety awareness; her status is evolving due to recent CVA. Rehab Potential: Good PT Short Term Goals Short Term Goals Time Frame: May 14, 2017 Transfers (B,C,W/C) (FIM): 5 Gait (FIM): 5 PT Custodial Goals Custodial Goals PT Steam Distribution Supervisor Goals Time Frame: May 21, 2017 Transfers (B,C,W/C) (FIM): 7 Sit to Lying (QC): 6 Lying-Sitting on Side/Bed(QC): 6 Sit to Stand (QC): 6 Roll Left to Right (QC): 6 Chair/Xrq-np-Yzkmx Xfer(QC): 6 Car Transfer (QC): 6 Does the Patient Walk: Yes Gait (FIM): 6 Gait distance (FIM): 3=150 ft Walk 10 feet (QC): 6 Walk 10ft-Uneven Surface(QC): 6 Walk 50ft with 2 Turns (QC): 6 Walk 150 ft (QC): 6 Gait Level of Assist: 6 Gait Assistive Device: FWW Stairs (FIM): 6 # of Steps: 12 1 Step (curb) (QC): 6 4 Steps (QC): 6 12 Steps (QC): 6 Picking up an Object (QC): 5 All LTG's have been set to allow pt to return home alone and care for herself in her apartment with her neighbor checking in as needed. PT Plan Problem List Problem List: Activity Tolerance, Functional Strength, Safety, Balance, Gait, Transfer, Bed Mobility Treatment/Plan Treatment Plan: Continue Plan of Care Treatment Plan: Bed Mobility, Education, Functional Activity [place], Functional Strength, Group Therapy, Gait, Safety, Therapeutic Exercise, Transfers Treatment Duration: May 21, 2017 Frequency: At least 5-7 days/Wk (IRF) Estimated Hrs Per Day: 1.5 hours per day Patient and/or Family Agrees t: Yes Safety Risks/Education Patient Education: Transfer Techniques, Safety Issues Teaching Recipient: Patient Teaching Methods: Demonstration, Discussion Response to Teaching: Reinforcement Needed Discharge Recommendations Therapy D/C Recommendations: Physical Therapy Home Care Time/GCodes Time In: 1410 (1420) Time Out: 1420 (1530) Total Billed Treatment Time: 80 Total Billed Treatment visit EVM 10 visit NM x2 (30) FAx2 (25) GTx1 (15) JEWEL LOREDO PT May 07, 2017 15:58
--- NOTE | 2017-05-07 17:48 | PM&R Post Admission Assessment ---
Post Admission Physician Asses The preadmission screen agrees with the post admission assessment that the patient is a good candidate for inpatient rehabilitation. The patient will have a comprehensive program of inpatient rehabilitation with a goal of maximizing level of functional independence prior to discharge home with family. The patient will have PT/OT ninety minutes per day, each discipline, five days a week for gait, strengthening, conditioning, balance, ADLs, any patient/family/caregiver training as necessary. Speech therapy to do cognitive and speech assessment, and treat as indicated 5 days a week for 30-45 min per day for 2 weeks. Rehabilitation nursing to assist with bowel, bladder, skin, wound care, medication administration, pain management. Gse Mechanic to assist with discharge planning, community reentry. SCD's for DVT prophylaxis. She appears to be well motivated to participate in three hours of therapy a day. She should be able to tolerate three hours of therapy a day from a medical standpoint. She should benefit from the three hours of therapy a day. She has a reasonable discharge plan, reasonable discharge rehabilitation goals and a supportive family. She has various comorbidities that need to be closely monitored with medications and treatments adjusted on a daily basis as needed. These include: HTN Tobaccoism Barriers to discharge for this patient who had been independent prior to this are for her to be modified independent to supervision for ADLs and mobility skills prior to discharge home with family and HHC, so as to lessen the burden of the caregivers. Risks for this patient include: 1. Fall 2. Fracture 3. DVT 4. Pulmonary embolism 5. Recurrent stroke 6. Skin breakdown 7. Contractures 8. Poorly controlled pain 9. Urinary retention 10. UTI 11. Respiratory infection 12. Aspiration 13. nicotine withdrawal 14. Poorly controlled HTN Estimated Length of Stay: 14 days Prognosis: Rehab prognosis appears good for goal of discharge home with family and HHC modified independent to supervision for ADLs and mobility skills. CHELSI CORDOBA MD May 07, 2017 17:48
[2017-05-07] MEDS: NICOTINE 14 MG (NICODERM) PATCH TD SCH (18:09)
[2017-05-07 18:22] VITALS: BP 134/77
[2017-05-07] MEDS: RT-ADVAIR HFA 115/21 MCG PER PUFF IH SCH (19:17)
[2017-05-07] MEDS: ATORVASTATIN 80 MG (LIPITOR) TABLET PO SCH (20:26)
[2017-05-07] MEDS: meTOprolol TARTRATE 25 MG (LOPRESSOR) TABLET PO SCH (20:26)
[2017-05-07] MEDS: GABAPENTIN 600 MG (NEURONTIN) TAB PO SCH (20:26)
[2017-05-07] MEDS: VENlafaxine XR 75 MG (EFFEXOR XR) CAP PO SCH (20:26)
[2017-05-07] MEDS: TOFACITINIB 5 MG PO SCH (20:27)
[2017-05-08 05:09] LABS: BASOPHILS # (AUTO) 0.1 10^3/uL (0.0-0.1); BASOPHILS % (AUTO) 1 % (0-10); EOSINOPHILS # (AUTO) 0.1 10^3/uL (0.0-0.3); EOSINOPHILS % (AUTO) 1 % (0-10); LYMPHOCYTES % (AUTO) 26 % (12-44); MEAN CORPUSCULAR HEMOGLOBIN 29 PG (25-34); MEAN CORPUSCULAR HGB CONC 34 G/DL (32-36); MEAN CORPUSCULAR VOLUME 87 FL (80-99); MEAN PLATELET VOLUME 9.2 FL (7.4-10.4); MONOCYTES # (AUTO) 0.9 X 10^3 (0.0-1.0); MONOCYTES % (AUTO) 8 % (0-12); NEUTROPHILS # (AUTO) 7.6 X 10^3 (1.8-7.8); NEUTROPHILS % (AUTO) 65 % (42-75); PLATELET COUNT 315 10^3/uL (130-400); RED BLOOD COUNT 4.46 10^6/uL (4.35-5.85); RED CELL DISTRIBUTION WIDTH 14.2 % (10.0-14.5); WHITE BLOOD COUNT 11.7 10^3/uL (4.3-11.0)
[2017-05-08 05:48] LABS: ALANINE AMINOTRANSFERASE 17 U/L (0-55); ALBUMIN 3.8 GM/DL (3.2-4.5); ANION GAP 14 MMOL/L (5-14); ASPARTATE AMINO TRANSFERASE 17 U/L (5-34); BILIRUBIN,TOTAL 0.6 MG/DL (0.1-1.0); BLOOD UREA NITROGEN 10 MG/DL (7-18); BUN/CREATININE RATIO 12; CALCIUM 9.4 MG/DL (8.5-10.1); CARBON DIOXIDE 20 MMOL/L (21-32); CHLORIDE 103 MMOL/L (98-107); CREATININE SERUM 0.86 MG/DL (0.60-1.30); GFR ESTIMATED > 60; GLUCOSE 92 MG/DL (70-105); POTASSIUM 4.1 MMOL/L (3.6-5.0); SODIUM 137 MMOL/L (135-145); TOTAL PROTEIN 7.6 GM/DL (6.4-8.2)
[2017-05-08] MEDS: PANTOPRAZOLE 40 MG (PROTONIX) TAB PO SCH (05:59)
[2017-05-08 06:00] VITALS: BP 106/67
[2017-05-08] MEDS: RT-ADVAIR HFA 115/21 MCG PER PUFF IH SCH ×2 (06:43→19:49)
[2017-05-08] MEDS ORDERED: DULAGLUTIDE 1.5 MG/0.5 ML SQ SCH (08:00)
[2017-05-08] MEDS: VENlafaxine XR 75 MG (EFFEXOR XR) CAP PO SCH ×2 (09:06→20:21)
[2017-05-08] MEDS: GABAPENTIN 600 MG (NEURONTIN) TAB PO SCH ×3 (09:07→20:21)
[2017-05-08] MEDS: ASPIRIN 325 MG (5 GR) TABLET PO SCH (09:07)
[2017-05-08] MEDS: meTOprolol TARTRATE 25 MG (LOPRESSOR) TABLET PO SCH ×2 (09:07→20:23)
[2017-05-08] MEDS: NICOTINE 14 MG (NICODERM) PATCH TD SCH (09:08)
[2017-05-08] MEDS: TOFACITINIB 5 MG PO SCH ×2 (09:08→20:22)
[2017-05-08] MEDS: NICOTINE PATCH REMOVAL TP SCH (09:33)
--- NOTE | 2017-05-08 12:08 | Physical Therapy Daily Note ---
PT Daily Note-Current Subjective Pain rated 6/10 in (L) shoulder. Pt reports she is improving everyday. Pt agreeable to PT. Mental Status Patient Orientation: Person, Place, Situation Transfers Functional [place] Measure 0=Not Assessed/NA 4=Minimal Assistance 1=Total Assistance 5=Supervision or Setup 2=Maximal Assistance 6=Modified [place] 3=Moderate Assistance 7=Complete IndependenceIRFPAI Quality Coding Scale 6 Independent with activity with or without an assistive device 5 Patient requires set up or clean up by helper. Patient completes activity by themselves 4 Supervision or touching assist (CGA). [place] provide cues , steadying assist 3 The helper provides less than half the effort to complete the activity 2 The helper provides more than half the effort to complete the activity 1 Dependent. The helper does all the effort to complete an activity 7 Patient refused to complete or attempt activity 9 The patient did not perform the activity before the current illness or injury 88 Not attempted due to Medical conditions or safety concerns Pt demonstrates Mod (I) bed mobility and mod (I) transfers. Gait Training Gait Assistive Device: FWW Pt amb with FWW and CGA, steady speed and good equal stride length x 250ft. Exercises Supine Ex: Glut sets, Straight leg raise, Hip abd/add Supine Reps: 15 Treatments Practiced heel to [place] coordination exercises x 10 with (L) LE. Pt able to complete slide from knee to ankle x 10. Assessment Current Status: Good Progress PT progressing nicely. Pt sree very well. Pt back to bed with call light and all needs met. PT Plan Treatment/Plan Treatment Plan: Continue Plan of Care Treatment Plan: Bed Mobility, Education, Functional Activity [place], Functional Strength, Group Therapy, Gait, Safety, Therapeutic Exercise, Transfers Treatment Duration: May 21, 2017 Frequency: At least 5-7 days/Wk (IRF) Estimated Hrs Per Day: 1.5 hours per day Patient and/or Family Agrees t: Yes Time/GCodes Time In: 1130 Time Out: 1145 Total Billed Treatment Time: 15 Total Billed Treatment 1, gait x 10min, ther ex 5 min MARIO RAMOS CPTA May 08, 2017 12:07
[2017-05-08 17:30] VITALS: BP 105/62
[2017-05-08] MEDS: ATORVASTATIN 80 MG (LIPITOR) TABLET PO SCH (20:21)
[2017-05-09] MEDS: PANTOPRAZOLE 40 MG (PROTONIX) TAB PO SCH (05:44)
[2017-05-09 06:08] VITALS: BP 100/63
[2017-05-09] MEDS: RT-ADVAIR HFA 115/21 MCG PER PUFF IH SCH ×2 (07:55→19:36)
[2017-05-09 09:39] VITALS: BP 137/80
[2017-05-09] MEDS: ASPIRIN 325 MG (5 GR) TABLET PO SCH (09:42)
[2017-05-09] MEDS: meTOprolol TARTRATE 25 MG (LOPRESSOR) TABLET PO SCH ×2 (09:42→20:05)
[2017-05-09] MEDS: VENlafaxine XR 75 MG (EFFEXOR XR) CAP PO SCH ×2 (09:42→20:04)
[2017-05-09] MEDS: GABAPENTIN 600 MG (NEURONTIN) TAB PO SCH ×3 (09:43→20:05)
[2017-05-09] MEDS: TOFACITINIB 5 MG PO SCH ×2 (09:43→20:04)
[2017-05-09] MEDS: NICOTINE 14 MG (NICODERM) PATCH TD SCH (09:43)
[2017-05-09] MEDS: NICOTINE PATCH REMOVAL TP SCH (09:47)
[2017-05-09 18:03] VITALS: BP 127/77
[2017-05-09] MEDS: ATORVASTATIN 80 MG (LIPITOR) TABLET PO SCH (20:04)
--- NOTE | 2017-05-10 01:54 | HISTORY AND PHYSICAL ---
DATE OF ADMISSION: 05/07/2017 CHIEF COMPLAINT: Difficulty with walking. HISTORY OF PRESENT ILLNESS: The patient is a 62-year-old female, disabled with past medical history of hypertension, hyperlipidemia and tobaccoism, who lives in a handicap apartment, along with her dog in [place], [place]. She was admitted to [facility] on 05/03 due to left-sided numbness and weakness after suffering a fall. The patient was brought to the ED where a CT brain was performed, which was unremarkable for hemorrhage. Clinically she is felt to have sustained a CVA. She was provided with TPA and had fairly good reversal. She was unable to have an MRI of the brain to confirm a stroke as She has a bladder stimulator to help her to void and avoid incontinenence. She is now referred to Inpatient Rehabilitation Unit for a comprehensive program of inpatient stroke rehabilitation. PCP: [facility]. PAST MEDICAL HISTORY Depression HTN COPD PRIOR LEVEL OF FUNCTION: Independent prior to this as per above. She has a friend that lives nearby in her apartment complex that can drive her as necessary. She has a daughter in [place], [place]. 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 Min assist for upper body dressing, lower body dressing. Min assist for toilet transfers. She is reported to be continent of bowel bLADDER STRESS INCONTINENCE. She does report some slurring of speech occasionally since This most recent event.sHE IS CONTACT GUARD ASSIST FOR MOST TRANFSRES AND GAIT WITH A WALKER PAST SURGICAL HISTORY: Bladder stimulator. ALLERGIES: 1. IV dye. 2. Paper tape. 3. Codeine. 4. Doxycycline. 5. Flonase. 6. Hydrocodone. 7. Methylprednisolone. 8. Oxybutynin. 9. Paroxetine. FAMILY HISTORY: Noncontributory. SOCIAL HISTORY: Disabled but independent, lives alone. She is reported to be a . Positive tobacco history. REVIEW OF SYSTEMS: Ten-point review of systems significant for left-sided weakness, much improved, difficulty with voiding and has a bladder stimulator to assist with that, arthritic pain. MEDICATIONS: 1. ASA 325 mg p.o. daily. 2. Protonix 40 mg p.o. daily. 3. Lipitor 80 mg p.o. at bedtime. 4. Effexor XR 150 mg p.o. b.i.d. 5. Lopressor 25 mg p.o. b.i.d. 6. Gabapentin 600 mg p.o. t.i.d. 7. Advair 1 puff b.i.d. 8. Albuterol treatments q.4 hours p.r.n. dyspnea. Tramadol 50 to 100 mg p.o. every 4 hours p.r.n. moderate pain. 9. Flexeril 10 mg p.o. b.i.d. p.r.n. muscle spasms. PHYSICAL EXAMINATION: Significant for a pleasant female, appearing her stated age, lying in bed in no acute distress. VITAL SIGNS: Pulse is 114, respirations 18. She is afebrile. Blood pressure 140/82, O2 sat 96% on room air. HEENT: She has mild left labial droop. Vision and hearing grossly intact. Mild dysarthria as per speech therapy. No oral lesion is noted. NECK: Supple without mass. HEART: Regular rhythm. LUNGS: Clear. ABDOMEN: Soft, nontender. Bowel sounds present. EXTREMITIES: No lower leg edema. No calf tenderness. MUSCULOSKELETAL: The patient has limited range of motion in the left shoulder which she relates to frozen shoulder; otherwise, functional active range of motion in other limbs and joints. NEUROLOGIC: She has very mild left hemiparesis, mild standing gait imbalance. Sensation is grossly intact to touch. Mild dysarthria. Cognition grossly intact.Strength rt 5/5 Left 3/5 Lower limb and 4/ 5 upper limb.Coordination decreased on left IMPRESSION: 1. 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 2. Hypertension, controlled with medication. 3. Tobaccoism. Nicotine patch offered. 4. Left frozen shoulder. 5. Arthritis. 6. Stress incontinenece with Bladder stimulator in place to assist with voiding. 7. COPD PLAN: The patient will have a comprehensive program of inpatient rehabilitation with a goal of maximizing level of functional independence prior to discharge home with home health care and friend. The patient will have PT/OT 90 minutes per day, each discipline, 5 days week for gait, strengthening, conditioning, ADLs, any patient/family/caregiver training necessary, balance, any adaptive equipment and training necessary. Speech therapy to do ongoing speech therapy dysarthria 3 to 5 days a week for 30 to 45 minutes per day for 2 weeks. Rehabilitation nursing assist with bowel, bladder, skin care, medication administration, pain management, nicotine patch for smoking cessation. Therapy with cardiac and fall precautions. hospitality workers to assist with discharge planning, community reentry. We will ask Dr. Gill to follow this patient while on the rehab unit as I am uncertain if [facility] is actively consulting at this time. Routine admission labs in a.m. ESTIMATED LENGTH OF STAY: Two weeks. PROGNOSIS: Rehab prognosis appears good for goal of discharging home with family friend to assist along with home health care, modified independent to supervision for ADLs and mobility skills. DIET: Regular. CODE STATUS: Full code. Job ID: [id number] Dictated Date: 05/07/2017 18:03:11 Drier And Grinder Tender Date: 05/10/2017 01:39:17/klaus WILLIAM
[2017-05-10 05:24] VITALS: BP 120/59
[2017-05-10] MEDS: PANTOPRAZOLE 40 MG (PROTONIX) TAB PO SCH (05:32)
[2017-05-10] MEDS: RT-ADVAIR HFA 115/21 MCG PER PUFF IH SCH (06:48)
[2017-05-10] MEDS: NICOTINE PATCH REMOVAL TP SCH (08:24)
[2017-05-10] MEDS: GABAPENTIN 600 MG (NEURONTIN) TAB PO SCH ×2 (08:25→12:57)
[2017-05-10] MEDS: VENlafaxine XR 75 MG (EFFEXOR XR) CAP PO SCH (08:25)
[2017-05-10] MEDS: TOFACITINIB 5 MG PO SCH (08:25)
[2017-05-10] MEDS: ASPIRIN 325 MG (5 GR) TABLET PO SCH (08:25)
[2017-05-10] MEDS: NICOTINE 14 MG (NICODERM) PATCH TD SCH (08:25)
[2017-05-10] MEDS: meTOprolol TARTRATE 25 MG (LOPRESSOR) TABLET PO SCH (08:25)
--- NOTE | 2017-05-10 08:48 | Consultation ---
History of Present Illness History of Present Illness Patient Consulted On(debra/time) 05/10/17 08:43 Time Seen by Provider: 08:45 History of Present Illness patient on 05/03 had a stroke on the left side. Patient went to [facility] and had TPA. Patient did much better. After the TPA. Patient has a history of asthma, h bladder stimulator, hyperlipidemia,. Surgery tubal ligation, ear surgery, had infusions for rheumatoid arthritis. Patient lives alone with her dog in [facility] Patient can move her upper and low extremities and no problems with talking Allergies and Home Medications Allergies Coded Allergies: Iodinated Contrast- Oral and IV Dye (Verified Allergy, Intermediate, ) doxycycline (Unverified Allergy, Intermediate, FACIAL SWELLING, 03/29/17) fluticasone furoate (Verified Allergy, Intermediate, N/V, 03/29/17) paroxetine (Verified Allergy, Intermediate, 03/29/17) vilanterol (Verified Allergy, Intermediate, N/V, 03/29/17) methylprednisolone (Unverified Allergy, Mild, flushing and skin burning and eye itching, 03/29/17) codeine (Verified Allergy, Unknown, HIVES, 03/29/17) hydrocodone (Unverified Adverse Reaction, Intermediate, DYSPNEA, HIVES, ) oxybutynin (Verified Adverse Reaction, Mild, sores in mouth, 03/29/17) Uncoded Allergies: PAPER TAPE (Allergy, Unknown, BLISTERS/SORES, 07/10/15) Home Medications Albuterol Sulfate 8.5 Gm Hfa.aer.ad, 1-2 PUFF INH Q6H PRN for SHORTNESS OF BREATH, (Reported) Albuterol Sulfate 2.5 Mg/3 Ml Vial.neb, 2.5 MG NEB Q4H PRN for SHORTNESS OF BREATH, (Reported) Cyclobenzaprine HCl 10 Mg Tablet, 10 MG PO BID PRN for PAIN, (Reported) Dulaglutide 1.5 Mg/0.5 Ml Pen.injctr, 1.5 MG SQ Sa, (Reported) Ezetimibe 10 Mg Tablet, 10 MG PO DAILY, (Reported) Fluticasone/Salmeterol 1 Each Blst.w.dev, 1 PUFF IH BID, (Reported) Gabapentin 600 Mg Tablet, 600 MG PO TID, (Reported) Metoprolol Tartrate 25 Mg Tablet, 25 MG PO BID, (Reported) Omeprazole 40 Mg Capsule.dr, 40 MG PO DAILY, (Reported) Tofacitinib Citrate 5 Mg Tablet, 5 MG PO BID, (Reported) Tramadol HCl 50 Mg Tablet, 50-100 MG PO Q4H PRN for PAIN-MODERATE, (Reported) Venlafaxine HCl 150 Mg Cap.er.24h, 150 MG PO BID, (Reported) Past Kvnrcuo-Zahfof-Gmywce Hx Patient Social History Alcohol Use: Denies Use Recreational Drug Use: No Smoking Status: Current Everyday Smoker Type Used: Cigarettes Recent Foreign Travel: No Contact w/Someone Who Travel: No Recent Infectious Disease Expo: No Recent Hopitalizations: No Physical Abuse Screen: No Sexual Abuse: No Immunizations Up To Date Tetanus Booster (TDap): Unknown Date of Pneumonia Vaccine: Apr 09, 2010 Date of Influenza Vaccine: Jul 20, 2016 Seasonal Allergies Seasonal Allergies: No Surgeries HX Surgeries: Yes (port placement/REMOVED, bladder stimulator, EARS PINNED) Surgeries: Tubal Ligation Respiratory Hx Respiratory Disorders: Yes (2L NC NIGHT ) Respiratory Disorders: Asthma, Sleep Apnea Cardiovascular Hx Cardiac Disorders: Yes Cardiac Disorders: High Cholesterol, Hypertension Neurological Hx Neurological Disorders: Yes Neurological Disorders: TIA 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 System : No Hx 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 Disorders: No Sexually Transmitted Disease: No HIV/AIDS: No AREA OPERATIONS MANAGER History: Tubal Ligation, Menopausal Genitourinary Hx Genitourinary Disorders: Yes (MEDTRONIC INTERSTEM) Genitourinary Disorders: Kidney Infection, Bladder Infection Gastrointestinal Hx Gastrointestinal Disorders: Yes (Esophageal spasm) Gastrointestinal Disorders: Gastroesophageal Reflux, Chronic Constipation, Hemorrhoids, Chronic Diarrhea, Irritable Bowel Musculoskeletal Hx Musculoskeletal Disorders: Yes ("3 bulging disks", CHRONIC BILATERAL LEG PAIN) Musculoskeletal Disorders: Arthritis, Rheumatoid Arthritis, Chronic Back Pain Endocrine Hx Endocrine Disorders: No HEENT HX ENT Disorders: Yes (GLASSES, DENTURES) Loss of Vision: Bilateral Hearing Impairment: Denies Cancer Hx Cancer: No Psychosocial Hx Psychiatric Problems: Yes Behavioral Health Disorders: Anxiety, Depression Integumentary HX Skin/Integumentary Disorder: No Blood Transfusions Hx Blood Disorders: No Adverse Reaction to a Blood Tr: No (N/A) Family Medical History Significant Family History: Cancer Family Medial History: Dementia 19 MOTHER FH: prostate cancer son, Onset:25's - 30 Review of Systems-General Constitutional: no symptoms reported EENTM: no symptoms reported Respiratory: no symptoms reported, other ([place]) Cardiovascular: no symptoms reported Gastrointestinal: no symptoms reported Genitourinary: other (Uses a stimulator for incontinence) Physical Exam-General Problems Physical Exam Vital Signs Vital Sign - Last 12Hours 05/07/17 14:07 Temp 98.4 Pulse 114 Resp 18 B/P (MAP) 140/82 Pulse Ox 96 O2 Delivery Room Air Capillary Refill : General Appearance: WD/WN, no apparent distress Eyes: Bilateral Eye Normal Inspection HEENT: normal ENT inspection Neck: non-tender, full range of motion Respiratory: chest non-tender, no respiratory distress, no accessory muscle use Cardiovascular: regular rate, rhythm, no murmur Gastrointestinal: non tender, soft Assessment/Plan Assessment/Plan Admission Diagnosis/Plan recent CVA. Tobaccoism. Asthma.. Hypertension area Hyperlipidemia. Sleep apnea. Incontinence and uses bladder stim Clinical Quality Measures DVT/VTE Risk/Contraindication: Risk Factor Score Per Nursin RFS Level Per Nursing on Admit: 3=High RADHIKA MCARTHUR DO May 10, 2017 08:48
--- NOTE | 2017-05-10 09:46 | Speech Therapy Daily Note ---
Speech Daily Progress Note Subjective Date Seen by Provider: May 10, 2017 Time Seen by Provider: 09:00 The patient was laying in bed upon entrance. The patient greeted the clinician and was agreeable to participation in the speech treatment session. The patient remained pleasant and cooperative throughout therapy. The patient consistently reported her readiness to go home. Per patient, "I lost a good friend over the weekend and I need to go get everything figured out. " The clinician visited with the patient regarding possible concerns about returning home. The patient continued to state she does not have any concerns and is "so ready, like yesterday." The patient's request was shared with the unit social service assistant prior to the treatment session. Objective Oral Motor Exercises: The patient initiated, discussed, and demonstrated oral motor exercises with 90% accuracy and mild clinician verbal cueing. Oral motor exercises will be used to strengthen oral and lingual musculature and improve the patient's overall intelligibility and speech precision. Ten repetitions of each exercise was performed. Assessment Assessment Current Status: Excellent Progress Treatment Plan Discontinue ST, Goals Met Communication Comprehension: 5 Expression: 5 Social Cognition Social Interaction: 6 Problem Solvin Memory: 5 Speech Short Term Goals Short Term Goals Short Term Goals 1. The patient will demonstrate oral motor exercises with 90% accuracy, independently. MET Time Frame-STG: Two Days Speech Jail Goals Packer Fuser Goals 1. The patient will display increased intelligibility for improved expressive communication. Time Frame: Five Days Comprehension: 5 (MET) Expression: 5 (MET) Social Interaction: 6 (MET) Problem Solvin (MET) Memory: 5 Speech-Plan Treatment Plan Speech Therapy Treatment Plan: Discontinue ST, Goals Met The patient met speech pathology goals set and will be discharged from skilled speech services at this time. Frequency: Modified Program (IRF) Estimated Hrs Per Day: .5 hour per day Rehab Potential: Good Safety Risks/Education Teaching Recipient: Patient, Family Teaching Methods: Demonstration, Handout, Discussion Response to Teaching: Verbalize Understanding Education Topics Provided: Plan of Care, Oral Motor Exercises Time Speech Therapy Time In: 09:00 Speech Therapy Time Out: 09:30 Total Billed Time: 30 Billed Treatment Time 1JONATAN ELIZABETH May 10, 2017 09:46
--- NOTE | 2017-05-10 09:50 | Therapy Team Discharge Summary ---
Therapy Discharge Summary Discharge Recommendations Date of Discharge Therapy D/C Recommendations: Physical Therapy Home Care Speech-Language Pathology The patient was recently admitted to [facility] Unit with an acute ischemic CVA. Upon admission, the patient discussed her concern regarding minimally imprecise articulation throughout conversational speech. While limited deficits were noted, speech pathology focused on functional speech and language repetition to improve specific phonemes for communication. The patient demonstrated high accuracy with oral motor exercises and completed ten repetitions of each exercise discussed. The patient has met her goals at this time and will be discharged from skilled speech pathology services at this time. PT Senior Insight Manager Goals Senior Insight Manager Goals PT Correction Goals Time Frame: May 21, 2017 Transfers (B,C,W/C) (FIM): 7 Roll Left to Right (QC): 6 Sit to Lying (QC): 6 Lying-Sitting on Side/Bed(QC): 6 Sit to Stand (QC): 6 Chair/Vsn-if-Vsksm Xfer(QC): 6 Car Transfer (QC): 6 Does the Patient Walk: Yes Gait (FIM): 6 Gait distance (FIM): 3=150 ft Walk 10 feet (QC): 6 Walk 10ft-Uneven Surface(QC): 6 Walk 50ft with 2 Turns (QC): 6 Walk 150 ft (QC): 6 Gait Level of Assist: 6 Gait Assistive Device: FWW Stairs (FIM): 6 # of Steps: 12 1 Step (curb) (QC): 6 4 Steps (QC): 6 12 Steps (QC): 6 Picking up an Object (QC): 5 OT Senior Insight Manager Goals Senior Insight Manager Goals Time Frame: May 28, 2017 Eating (FIM): 6 Eating (QC): 6 Oral Hygiene (QC): 6 Grooming(FIM): 6 Bathing(FIM): 6 Shower/Bathe Self (QC): 6 Upper Body Dressing(FIM): 6 Upper Body Dressing (QC): 6 Lower Body Dressing(FIM): 6 Lower Body Dressing (QC): 6 On/Off Footwear (QC): 6 Toileting(FIM): 6 Toileting Hygiene (QC): 6 Toilet/Commode Transfer(FIM): 6 Toilet/Commode Transfer (QC): 6 Shower Transfer(FIM): 6 Comprehension(FIM): 5 (MET) Expression (FIM): 5 (MET) Social Interaction(FIM): 6 (MET) Problem Solving(FIM): 5 (MET) Memory(FIM): 5 Additional Goals: 2-Verbalize Understanding, 3-ImproveStrength/[place] 1=Demonstrate adherence to instructed precautions during ADL tasks. 2=Patient will verbalize/demonstrate understanding of assistive devices/ modifications for ADL. 3=Patient will improve strength/tolerance for activity to enable patient to perform ADL's. Speech Correction Goals Senior Insight Manager Goals 1. The patient will display increased intelligibility for improved expressive communication. Time Frame: Five Days Comprehension: 5 (MET) Expression: 5 (MET) Social Interaction: 6 (MET) Problem Solvin (MET) Memory: 5 (MET) MORAIMA CARRIZALES May 10, 2017 09:50
--- NOTE | 2017-05-10 11:41 | Occupational Ther Daily Note ---
OT Current Status-Daily Note Subjective Pt in bed, agrees to treatment. Pt states she lost a good friend and would like to go home today. States she will be staying with her friend who lives next door. Pt reports 3/10 pain in left shoulder. Mental Status/Objective Functional [place] Measure 0=Not Assessed/NA 4=Minimal Assistance 1=Total Assistance 5=Supervision or Setup 2=Maximal Assistance 6=Modified [place] 3=Moderate Assistance 7=Complete [place] ADL-Treatment Pt supine to sit with modified independence. Gait to restroom with FWW, no LOB noted. Pt retrieved clothing from bag using FWW for balance. Pt transferred to toilet with supervision. Doffed clothing without assistance. Pt transferred to walk in shower using grab bars. Pt able to wash/dry all areas with set up. Pt donned pullover shirt with modified independence. Donned pants with supervision for standing during pant hike. Donned socks with modified independence. Pt stood at sink to brush teeth with modified independence. Pt combed hair with modified independence while seated EOB. Pt sitting EOB with needs met and visitors present after session. Functional [place] Measure 0=Not Assessed/NA 4=Minimal Assistance 1=Total Assistance 5=Supervision or Setup 2=Maximal Assistance 6=Modified [place] 3=Moderate Assistance 7=Complete IndependenceIRFPAI Quality Coding Scale 6 Independent with activity with or without an assistive device 5 Patient requires set up or clean up by helper. Patient completes activity by themselves 4 Supervision or touching assist (CGA). [place] provide cues , steadying assist 3 The helper provides less than half the effort to complete the activity 2 The helper provides more than half the effort to complete the activity 1 Dependent. The helper does all the effort to complete an activity 7 Patient refused to complete or attempt activity 9 The patient did not perform the activity before the current illness or injury 88 Not attempted due to Medical conditions or safety concerns Eating (FIM): 6 (Pt reports feeding self, cutting food, and managing containers without assistance) Eating (QC): 6 Grooming (FIM): 6 Oral Hygiene (QC): 6 Bathing (FIM): 5 Shower/Bathe Self (QC): 5 Upper Body (FIM): 6 Upper Body Dressing (QC): 6 Lower Body Dressing (FIM): 5 Lower Body Dressing (QC): 4 On/Off Footwear (QC): 6 Toileting (FIM): 5 Toilet/Commode Transfer (FIM): 5 Toilet Transfer (QC): 4 Shower Transfer(FIM): 5 Education OT Patient Education: Safety issues Teaching Recipient: Patient Teaching Methods: Discussion Response to Teaching: Verbalize Understanding OT Short Term Goals Short Term Goals Time Frame: May 14, 2017 Bathing(FIM): 5 Upper Body Dressing(FIM): 5 Lower Body Dressing(FIM): 5 Toileting(FIM): 5 Transfers (B,C,W/C) (FIM): 5 Toilet/Commode Transfer(FIM): 5 Additional Short Term Goals: 2-Verbalize Understanding, 3-ImproveStrength/[place]co 1=Demonstrate adherence to instructed precautions during ADL tasks. 2=Patient will verbalize/demonstrate understanding of assistive devices/ modifications for ADL. 3=Patient will improve strength/tolerance for activity to enable patient to perform ADL's. OT [facility] Goals Oyster Sorter Goals Time Frame: May 28, 2017 Eating (FIM): 6 Eating (QC): 6 Groomin Oral Hygiene (QC): 6 Bathing(FIM): 6 Shower/Bathe Self (QC): 6 Upper Body Dressing(FIM): 6 Upper Body Dressing (QC): 6 Lower Body Dressing(FIM): 6 Lower Body Dressing (QC): 6 On/Off Footwear (QC): 6 Toileting(FIM): 6 Toileting Hygiene (QC): 6 Toilet/Commode Transfer(FIM): 6 Toilet/Commode Transfer (QC): 6 Shower Transfer(FIM): 6 Comprehension(FIM): 5 (MET) Expression (FIM): 5 (MET) Social Interaction(FIM): 6 (MET) Problem Solving(FIM): 5 (MET) Memory(FIM): 5 (MET) Additional Goals: 2-Verbalize Understanding, 3-ImproveStrength/[place] 1=Demonstrate adherence to instructed precautions during ADL tasks. 2=Patient will verbalize/demonstrate understanding of assistive devices/ modifications for ADL. 3=Patient will improve strength/tolerance for activity to enable patient to perform ADL's. OT Education/Plan Problem List/Assessment Pt demonstrates decreased ADL functioning, mobility, strength and activity tolerance. Pt to benefit from skilled OT intervention for ADL training, transfers, strengthening, and home safety education to maximize level of function and allow safe return home. Discharge Recommendations Plan/Recommendations: Continue POC Treatment Plan/Plan of Care Patient would benefit from OT for education, treatment and training to promote independence in ADL's, mobility, safety and/or upper extremity function for ADL' s. Plan of Care: ADL Retraining, Functional Mobility, Group Exercise/Act as Ind, UE Funct Exercise/Act Treatment Duration: May 28, 2017 Frequency: At least 5-7 days/Wk (IRF) Estimated Hrs Per Day: 1.5 hours per day Agreement: Yes Rehab Potential: Good Time/GCodes Start Time: 10:00 Stop Time: 11:00 Total Time Billed (hr/min): 60 Billed Treatment Time 1 visit, ADLx4(60minutes) SINDHU SILVERIO OT May 10, 2017 11:41
--- NOTE | 2017-05-10 11:47 | Physical Therapy Daily Note ---
PT Daily Note-Current Subjective Patient in bed pre tx, agrees to PT, has pain of 3/10 in her left shoulder ( patient states she has been getting PT on that for a frozen shoulder) Appearance Patient sitting EOB post tx with nurse call, phone, tray, family in the room. Mental Status Patient Orientation: Person, Place, Situation Transfers Functional [place] Measure 0=Not Assessed/NA 4=Minimal Assistance 1=Total Assistance 5=Supervision or Setup 2=Maximal Assistance 6=Modified [place] 3=Moderate Assistance 7=Complete IndependenceIRFPAI Quality Coding Scale 6 Independent with activity with or without an assistive device 5 Patient requires set up or clean up by helper. Patient completes activity by themselves 4 Supervision or touching assist (CGA). Ozone provide cues , steadying assist 3 The helper provides less than half the effort to complete the activity 2 The helper provides more than half the effort to complete the activity 1 Dependent. The helper does all the effort to complete an activity 7 Patient refused to complete or attempt activity 9 The patient did not perform the activity before the current illness or injury 88 Not attempted due to Medical conditions or safety concerns Transfers (B, C, W/C) (FIM): 5 Scootin Rollin Roll Left to Right (QC): 6 Supine to/from Sit: 6 Sit to/from Stand: 5 Sit to Lying (QC): 6 Sit to Stand (QC): 4 Patient performs bed mobility with mod I, sit to stand with SBA. Gait Training Gait (FIM): 5 Distance: 500', 200' Walk 10 feet (QC): 4 Walk 50 ft with 2 Turns(QC): 4 Walk 150 ft (QC): 4 Walking 10ft/uneven surface-QC: 4 Gait Level of Assist: 5 Gait Persons Needed: 1 Gait Assistive Device: FWW Patient can ambulate 500' with a rolling walker with SBA, including 50' with at least 2 turns of 90 degrees and 10' over an uneven surface. No LOB or unsteadiness. Wheelchair Training Does the Pt Use a Wheelchair?: No Stair Training Stair Training: Handrails/: 2 handrails Stairs (FIM): 5 #of Steps: 12 1 Step (curb) (QC): 4 4 Steps (QC): 4 12 Steps (QC): 4 Stairs: Pattern: Step to Level of Assist: 5 Patient can go up and down 12 steps using 2 handrails with SBA. Balance Picking up an Object (QC): 4 Special Test Comments SBA Exercises NuStep Minutes: 15 NuStep Workload: 6 Treatments bed mobility and transfers, ambulation, functional strengthening, stair training Assessment Current Status: Good Progress good progress with ambulation and balance, strength, mobility PT Short Term Goals Short Term Goals Time Frame: May 14, 2017 Transfers (B,C,W/C) (FIM): 5 Gait (FIM): 5 PT Electronic Components Assembler Goals Electronic Components Assembler Goals PT Mcc Goals Time Frame: May 21, 2017 Transfers (B,C,W/C) (FIM): 7 Sit to Lying (QC): 6 (met) Lying-Sitting on Side/Bed(QC): 6 (met) Sit to Stand (QC): 6 Roll Left to Right (QC): 6 (met) Chair/Rqc-eu-Mfqmq Xfer(QC): 6 (met) Car Transfer (QC): 6 Does the Patient Walk: Yes Gait (FIM): 6 Gait distance (FIM): 3=150 ft Walk 10 feet (QC): 6 Walk 10ft-Uneven Surface(QC): 6 Walk 50ft with 2 Turns (QC): 6 Walk 150 ft (QC): 6 Gait Level of Assist: 6 Gait Assistive Device: FWW Stairs (FIM): 6 # of Steps: 12 1 Step (curb) (QC): 6 4 Steps (QC): 6 12 Steps (QC): 6 Picking up an Object (QC): 5 (met) PT Plan Problem List Problem List: Activity Tolerance, Functional Strength, Safety, Balance, Gait, Transfer Treatment/Plan Treatment Plan: Continue Plan of Care Treatment Plan: Bed Mobility, Education, Functional Activity Checo, Functional Strength, Group Therapy, Gait, Safety, Therapeutic Exercise, Transfers Treatment Duration: May 21, 2017 Frequency: At least 5-7 days/Wk (IRF) Estimated Hrs Per Day: 1.5 hours per day Patient and/or Family Agrees t: Yes Safety Risks/Education Patient Education: Gait Training, Transfer Techniques, Steps, Correct Positioning, Safety Issues Teaching Recipient: Patient Teaching Methods: Demonstration, Discussion Response to Teaching: Reinforcement Needed Time/GCodes Time In: 1100 Time Out: 1145 Total Billed Treatment Time: 45 Total Billed Treatment 1 visit EX 15' GT 30' CLEMENTE BLANCO PT May 10, 2017 11:47
[2017-05-10] MEDS ORDERED: ASPI-808 PO (13:54)
[2017-05-10] MEDS ORDERED: ATOR80TA76 PO (13:54)
--- NOTE | 2017-05-10 18:30 | PM & R (SOAP) Progress Note ---
Subjective Time Seen by Provider: 12:00 Subjective/Events-last exam Contacted by IRU staff earlier today re patients desire to be discharged today, Patient progressing well with therapies and would have benefited from staying longer but patient cited personal issues.Discussed case with RN Objective Exam Last Set of Vital Signs Vital Signs Date Time Temp Pulse Resp B/P (MAP) Pulse Ox O2 Delivery O2 Flow Rate FiO2 05/10/17 06:48 99 Room Air 05/10/17 05:24 97.3 77 18 120/59 Capillary Refill : I&O Intake and Output 05/10/17 00:00 Intake Total 2468 ml Balance 2468 ml Intake Oral 2468 ml # Voids 12 General: Alert, Oriented X3, Cooperative, No Acute Distress HEENT: Atraumatic, PERRLA, EOMI, Mucous Memb Moist/[place] Neck: Supple, No JVD Lungs: Clear to Auscultation Heart: Regular Rate Abdomen: Normal Bowel Sounds, Soft, No Tenderness Extremities: No Edema Neuro: Other (very mild left sided weakness) Results Lab Laboratory Tests 05/08/17 04:44: White Blood Count 11.7H, Red Blood Count 4.46, Hemoglobin 13.1, Hematocrit 39, Mean Corpuscular Volume 87, Mean Corpuscular Hemoglobin 29, Mean Corpuscular Hemoglobin Concent 34, Red Cell Distribution Width 14.2, Platelet Count 315, Mean Platelet Volume 9.2, Neutrophils (%) (Auto) 65, Lymphocytes (%) (Auto) 26, Monocytes (%) (Auto) 8, Eosinophils (%) (Auto) 1, Basophils (%) (Auto) 1, Neutrophils # (Auto) 7.6, Lymphocytes # (Auto) 3.0, Monocytes # (Auto) 0.9, Eosinophils # (Auto) 0.1, Basophils # (Auto) 0.1, Sodium Level 137, Potassium Level 4.1, Chloride Level 103, Carbon Dioxide Level 20L, Anion Gap 14, Blood Urea Nitrogen 10, Creatinine 0.86, Estimat Glomerular Filtration Rate > 60, BUN/ Creatinine Ratio 12, Glucose Level 92, Calcium Level 9.4, Total Bilirubin 0.6, Aspartate Amino Transf (AST/SGOT) 17, Alanine Aminotransferase (ALT/SGPT) 17, Alkaline Phosphatase 91, Total Protein 7.6, Albumin 3.8 Assessment/Plan Assessment 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
--- NOTE | 2017-05-10 18:35 | Individualized Plan of Care ---
Individualized Plan of Care Rehab Nursing IPOC Order Admission Date May 07, 2017 at 13:52 Current Orders Orders Patient Visit (05/10/17 ) Treat. Speech/Lang/Voice (05/10/17 ) Patient Visit (05/10/17 ) Exercise Therap, Ea 15 Min (05/10/17 ) Gait Training, Ea 15 Min (05/10/17 ) Attending Discharge (05/10/17 13:27) Rehab Nursing Orders: Diseage Management, Edu in Press Rel Techn, Hydration Management, Nutrition Management, Pain Management PT IPOC Problem List: Activity Tolerance, Functional Strength, Safety, Balance, Gait, Transfer Treatment Plan: Continue Plan of Care Bed Mobility, Education, Functional Activity Checo, Functional Strength, Group Therapy, Gait, Safety, Therapeutic Exercise, Transfers Treatment Duration: May 21, 2017 Frequency: At least 5-7 days/Wk (IRF) Estimated Hrs Per Day: 1.5 hours per day OT IPOC Problems: Decreased Activ Tolerance, Decreased UE Strength, Dependent Transfers , Impaired Self-Care Skills OT Problems Pt demonstrates decreased ADL functioning, mobility, strength and activity tolerance. Pt to benefit from skilled OT intervention for ADL training, transfers, strengthening, and home safety education to maximize level of function and allow safe return home. Plan of Care: ADL Retraining, Functional Mobility, Group Exercise/Act as Ind, UE Funct Exercise/Act Treatment Duration: May 28, 2017 Frequency: At least 5-7 days/Wk (IRF) Estimated Hrs Per Day: 1.[address] IPOC Speech Therapy Treatment Plan: Discontinue ST, Goals Met Frequency: Modified Program (IRF) Estimated Hrs Per Day: .5 hour per day Physician IPOC Medical Issues being managed closely and that require the 24 hour availability of a physician:HTN smoking cessation Medical Issues: DVT Prophylaxis, Falls Precautions, Pain Management, Other ( List) (as per above) Brief Synthesis of Preadmission Screen, Post-Admission Evaluation, and Therapy Evaluations: 62 yo disabled female s/p stroke with marked improvemnt of Left HP s/p TPA who was referrred to IRU for ongoing stroke rehab Placed on ASA for stroke prophylaxis Patient requested early discharge today due to personal issues and will resume her outpatient PT with a local provider who she had been seeing for a left shoulder issue Medical Prognosis: good Anticipated Length of Stay: 05-10-17 Rehab Goals Modified Independent for adls and mobility skills Anticipated discharge destinat: Home with family and outpatient PT CHELSI CORDOBA MD May 10, 2017 18:35
--- NOTE | 2017-05-11 11:23 | Therapy Team Discharge Summary ---
Therapy Discharge Summary Discharge Recommendations Date of Discharge May 10, 2017 at 15:00 Therapy D/C Recommendations: Physical Therapy Home Care Physical Therapy This patient was seen on the ARU post CVA in which she had received TPA. Upon admission, she required much cuing and intervention for safety and completing of tasks, requiring co treatment for optimal treatment intervention. She was min assist with transfers, walked 125 ft with CGA and was only able to traverse 1 step. Pt needed cues for safety and sequencing as well as balance intervention at the initial evaluation. Pt was insistent on discharge on the date of discharge as she felt she had matters she needed to tend to at home. A day pass was offered in attempt to encourage her to stay on the unit to continue to make functional gains, but she wished to discharge. Therefore, her goals were not met and at discharge, she was SBA with transfers, gait and stairs. It is recommended that she have follow up care as she is not yet considered at a mod indep to indep level. However, discharge skilled PT at this level due to pt desire and insistence of discharging home. PT Long-Term Goals Prosthetist Goals PT Prosthetist Goals Time Frame: May 21, 2017 Transfers (B,C,W/C) (FIM): 7 ([place]mett, score 5) Roll Left to Right (QC): 6 (met) Sit to Lying (QC): 6 (met) Lying-Sitting on Side/Bed(QC): 6 (met) Sit to Stand (QC): 6 Chair/Hbu-he-Jlmjt Xfer(QC): 6 (met) Car Transfer (QC): 6 Does the Patient Walk: Yes Gait (FIM): 6 (unmet, scored a 5) Gait distance (FIM): 3=150 ft Walk 10 feet (QC): 6 Walk 10ft-Uneven Surface(QC): 6 Walk 50ft with 2 Turns (QC): 6 Walk 150 ft (QC): 6 Gait Level of Assist: 6 Gait Assistive Device: FWW Stairs (FIM): 6 (unmet; scored a 5) # of Steps: 12 1 Step (curb) (QC): 6 4 Steps (QC): 6 12 Steps (QC): 6 Picking up an Object (QC): 5 (met) OT Long-Term Goals Long-Term Goals Time Frame: May 28, 2017 Eating (FIM): 6 Eating (QC): 6 Oral Hygiene (QC): 6 Grooming(FIM): 6 Bathing(FIM): 6 Shower/Bathe Self (QC): 6 Upper Body Dressing(FIM): 6 Upper Body Dressing (QC): 6 Lower Body Dressing(FIM): 6 Lower Body Dressing (QC): 6 On/Off Footwear (QC): 6 Toileting(FIM): 6 Toileting Hygiene (QC): 6 Toilet/Commode Transfer(FIM): 6 Toilet/Commode Transfer (QC): 6 Shower Transfer(FIM): 6 Comprehension(FIM): 5 (MET) Expression (FIM): 5 (MET) Social Interaction(FIM): 6 (MET) Problem Solving(FIM): 5 (MET) Memory(FIM): 5 (MET) Additional Goals: 2-Verbalize Understanding, 3-ImproveStrength/[place] 1=Demonstrate adherence to instructed precautions during ADL tasks. 2=Patient will verbalize/demonstrate understanding of assistive devices/ modifications for ADL. 3=Patient will improve strength/tolerance for activity to enable patient to perform ADL's. Speech Long-Term Goals Long-Term Goals 1. The patient will display increased intelligibility for improved expressive communication. Time Frame: Five Days Comprehension: 5 (MET) Expression: 5 (MET) Social Interaction: 6 (MET) Problem Solvin (MET) Memory: 5 (MET) JEWEL LOREDO PT May 11, 2017 11:22
--- NOTE | 2017-05-11 11:36 | Therapy Team Discharge Summary ---
Therapy Discharge Summary Discharge Recommendations Date of Discharge May 10, 2017 at 15:00 Therapy D/C Recommendations: Physical Therapy Home Care Occupational Therapy Pt admitted to ARU following acute hospitalization for CVA. On admission pt required min assist for dressing and CGA for transfers, bathing, and toileting. Pt required cues for safety and sequencing. Pt did not meet all goals as pt discharged unexpectedly. Pt was able to complete eating, grooming, and UE dressing with modified independence, but required SBA for other ADLs. Pt met goals for feeding, grooming, and UE dressing, but did not meet other goals. Pt insisted on d/c and stated she would be staying with her friend who will be available to assist if needed. D/C ARU OT at this time. PT Horticultural Farmer Goals Skilled Nursing Goals PT Horticultural Farmer Goals Time Frame: May 21, 2017 Transfers (B,C,W/C) (FIM): 7 ([place]mett, score 5) Roll Left to Right (QC): 6 (met) Sit to Lying (QC): 6 (met) Lying-Sitting on Side/Bed(QC): 6 (met) Sit to Stand (QC): 6 Chair/Jjn-yq-Tzhev Xfer(QC): 6 (met) Car Transfer (QC): 6 Does the Patient Walk: Yes Gait (FIM): 6 (unmet, scored a 5) Gait distance (FIM): 3=150 ft Walk 10 feet (QC): 6 Walk 10ft-Uneven Surface(QC): 6 Walk 50ft with 2 Turns (QC): 6 Walk 150 ft (QC): 6 Gait Level of Assist: 6 Gait Assistive Device: FWW Stairs (FIM): 6 (unmet; scored a 5) # of Steps: 12 1 Step (curb) (QC): 6 4 Steps (QC): 6 12 Steps (QC): 6 Picking up an Object (QC): 5 (met) OT Skilled Nursing Goals Skilled Nursing Goals Time Frame: May 28, 2017 Eating (FIM): 6 Eating (QC): 6 Oral Hygiene (QC): 6 Grooming(FIM): 6 Bathing(FIM): 6 Shower/Bathe Self (QC): 6 Upper Body Dressing(FIM): 6 Upper Body Dressing (QC): 6 Lower Body Dressing(FIM): 6 Lower Body Dressing (QC): 6 On/Off Footwear (QC): 6 Toileting(FIM): 6 Toileting Hygiene (QC): 6 Toilet/Commode Transfer(FIM): 6 Toilet/Commode Transfer (QC): 6 Shower Transfer(FIM): 6 Comprehension(FIM): 5 (MET) Expression (FIM): 5 (MET) Social Interaction(FIM): 6 (MET) Problem Solving(FIM): 5 (MET) Memory(FIM): 5 (MET) Additional Goals: 2-Verbalize Understanding, 3-ImproveStrength/[place] 1=Demonstrate adherence to instructed precautions during ADL tasks. 2=Patient will verbalize/demonstrate understanding of assistive devices/ modifications for ADL. 3=Patient will improve strength/tolerance for activity to enable patient to perform ADL's. Speech Horticultural Farmer Goals Skilled Nursing Goals 1. The patient will display increased intelligibility for improved expressive communication. Time Frame: Five Days Comprehension: 5 (MET) Expression: 5 (MET) Social Interaction: 6 (MET) Problem Solvin (MET) Memory: 5 (MET) SINDHU SILVERIO OT May 11, 2017 11:36
== END 2017-05-10 15:00 | disposition home or self-care (01) | DRG 57 ==
LOC: ENPENDDIS 05-10 15:00
PROVIDERS: ADMIT Physical Medicine & Rehabilitation; ATTEND Physical Medicine & Rehabilitation
DX: I69.354 Hemiplegia and hemiparesis following cerebral infarction affecting left non-dominant side (principal); I69.322 Dysarthria following cerebral infarction; M75.02 Adhesive capsulitis of left shoulder; M06.9 Rheumatoid arthritis, unspecified; M19.91 Primary osteoarthritis, unspecified site; N39.3 Stress incontinence (female) (male); I10 Essential (primary) hypertension; E78.5 Hyperlipidemia, unspecified; F17.210 Nicotine dependence, cigarettes, uncomplicated; F32.9 Major depressive disorder, single episode, unspecified; J44.9 Chronic obstructive pulmonary disease, unspecified; J45.909 Unspecified asthma, uncomplicated; G47.30 Sleep apnea, unspecified; K21.9 Gastro-esophageal reflux disease without esophagitis
CPT/HCPCS: 36415; 80053; 85025; 94640; 94664; 94760

== ENCOUNTER 2017-08-24 09:19 | Inpatient (IN) | payer MEDICARE ==
[~2017-08-24] VITALS: Ht 167.6 cm; Wt 97.5 kg
[2017-08-24] VITALS (17 sets, daily range): BP systolic 97–129; BP diastolic 42–103
[~2017-08-24 09:19] MED LIST changes: +ALBU2.5V4 NEB; +ASPI-808 PO; +ATOR80TA76 PO
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
--- NOTE | 2017-08-24 09:38 | Diagnostic Imaging Report ---
Portable upright radiograph of the chest. INDICATION: Left-sided weakness. FINDINGS: There is left mid lung increased opacity concerning for possible infiltrate. The right lung appears clear. The heart size is normal. No effusion or pneumothorax. The mediastinum and yue appear unremarkable. IMPRESSION: Question of mild infiltrate versus tissue superimposition causing increased density over the mid left lung field on this portable radiograph. Correlate clinically and with 2-view radiographs if needed. Dictated by: Dictated on workstation # [id number]
[2017-08-24 09:40] LABS: BASOPHILS % (AUTO) 0 % (0-10); EOSINOPHILS # (AUTO) 0.1 10^3/uL (0.0-0.3); EOSINOPHILS % (AUTO) 2 % (0-10); LYMPHOCYTES # (AUTO) 3.5 X 10^3 (1.0-4.0); LYMPHOCYTES % (AUTO) 43 % (12-44); MEAN CORPUSCULAR HEMOGLOBIN 29 PG (25-34); MEAN CORPUSCULAR HGB CONC 33 G/DL (32-36); MEAN CORPUSCULAR VOLUME 88 FL (80-99); MEAN PLATELET VOLUME 9.3 FL (7.4-10.4); MONOCYTES # (AUTO) 0.6 X 10^3 (0.0-1.0); MONOCYTES % (AUTO) 8 % (0-12); NEUTROPHILS # (AUTO) 3.8 X 10^3 (1.8-7.8); NEUTROPHILS % (AUTO) 47 % (42-75); PLATELET COUNT 341 10^3/uL (130-400); RED BLOOD COUNT 5.06 10^6/uL (4.35-5.85); RED CELL DISTRIBUTION WIDTH 14.8 % (10.0-14.5); WHITE BLOOD COUNT 8.1 10^3/uL (4.3-11.0)
[2017-08-24 09:50] LABS: PROTHROMBIN TIME PATIENT 13.1 SEC (12.2-14.7)
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
[2017-08-24 09:57] LABS: ALANINE AMINOTRANSFERASE 17 U/L (0-55); ANION GAP 10 MMOL/L (5-14); ASPARTATE AMINO TRANSFERASE 23 U/L (5-34); BILIRUBIN,TOTAL 0.4 MG/DL (0.1-1.0); BLOOD UREA NITROGEN 7 MG/DL (7-18); BUN/CREATININE RATIO 6; CALCIUM 9.5 MG/DL (8.5-10.1); CARBON DIOXIDE 23 MMOL/L (21-32); CHLORIDE 104 MMOL/L (98-107); CREATININE SERUM 1.13 MG/DL (0.60-1.30); GFR ESTIMATED 49; GLUCOSE 87 MG/DL (70-105); POTASSIUM 3.9 MMOL/L (3.6-5.0); SODIUM 137 MMOL/L (135-145); TOTAL PROTEIN 8.3 GM/DL (6.4-8.2)
[2017-08-24 10:02] LABS: TROPONIN I < 0.30 NG/ML (<0.30)
--- OUTSIDE RECORDS SUMMARY | 2017-08-24 10:07 | XMS REPORT ---
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 Active 595297912 Problem Other insomnia G47.09 Active 075842160 Problem Neuropathy G62.9 Active 391391117 Problem Obstructive sleep apnea G47.33 Active 53057919 Problem Chronic obstructive pulmonary disease, unspecified J44.9 Active 91464504382759447 Problem Generalized anxiety disorder F41.1 Active 32206959 Problem ADHD (attention deficit hyperactivity disorder), combined type F90.2 Active 77638691 Problem Asthma J45.909 Active 213405938 Problem Hypertension I10 Active 10421303 Problem Rheumatoid arthritis M06.9 Active 23475720 Problem Chronic pain syndrome G89.4 Active 984263826 Problem Weight gain R63.5 Active 6325900 Problem Mixed hyperlipidemia E78.2 Active 410008124 ALLERGIES No Information SOCIAL HISTORY Never Assessed PLAN OF CARE VITAL SIGNS MEDICATIONS Unknown Medications RESULTS No Results PROCEDURES No Known procedures IMMUNIZATIONS No Known Immunizations MEDICAL (GENERAL) HISTORY Type Description Date Medical History Cardiovascular [id number]-HDJ-Hvfbzhkr, 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 Mendoza Medical History Stress test 03/07/13-Dr. Kelly Dietrich normal Medical History Hypertension Medical History Asthma Medical History Gastrointestinal Disorder--IBS, GERD, Hx of fatty liver Medical History Hernia 1979 Medical History Cervical dysplasia 02/16-Pap LGSIL/[place]-mild dysplasia Medical History Hyperlipidemia Medical History Rheumatoid arthritis ([place]) in remission 11/27/14 pain she has probably from OA Medical History Anxiety/Depression Medical History Neurologic disorder--peripheral neuropathy Medical History Urologic disorder Hx of incontinence Medical History Endocrine disorder pre-diabetes Medical History interstim for the bladder Medical History Other malaise and fatigue Medical History Cerebrovascular accident (CVA), unspecified mechanism Surgical History Inner stem for bladder 06/2015 Surgical History Otolaryngologic surgery ear surgery 1975 Surgical History Tongue biopsy Herpes I & II No dysplasia 03/2012 Surgical History Tonsillectomy Surgical History Tubal ligation 1984 Surgical History Interstim in the bladder 06/18/2015 Surgical History Port Removed 03/2016 Surgical History left shoulder march 2017 Hospitalization History surgeries Hospitalization History Gastroenteritis/acute Kidney injury 07/10/15-07/11/2015 Hospitalization History Symptomatic Hypokalemia/Nause-[facility]ia [facility] 05/13/16 Hospitalization History Stroke 05/03/2017
[2017-08-24 10:10] LABS: BILIRUBIN,URINE NEGATIVE (NEGATIVE); KETONES,URINE NEGATIVE (NEGATIVE); LEUKOCYTE ESTERASE ,URINE NEGATIVE (NEGATIVE); NITRITE,URINE NEGATIVE (NEGATIVE); PH,URINE 6 (5-9); PROTEIN,URINE NEGATIVE (NEGATIVE); UROBILINOGEN,URINE NORMAL (NORMAL)
--- OUTSIDE RECORDS SUMMARY | 2017-08-24 10:10 | XMS REPORT ---
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 Active 185688200 Problem Other insomnia G47.09 Active 598815359 Problem Neuropathy G62.9 Active 003658576 Problem Obstructive sleep apnea G47.33 Active 75055985 Problem Chronic obstructive pulmonary disease, unspecified J44.9 Active 78298718449446380 Problem Generalized anxiety disorder F41.1 Active 20427686 Problem ADHD (attention deficit hyperactivity disorder), combined type F90.2 Active 63174804 Problem Asthma J45.909 Active 371684020 Problem Hypertension I10 Active 79911272 Problem Rheumatoid arthritis M06.9 Active 09880649 Problem Chronic pain syndrome G89.4 Active 829386948 Problem Weight gain R63.5 Active 7081530 Problem Mixed hyperlipidemia E78.2 Active 853421329 ALLERGIES Substance Reaction Event Type Date Status Breo Ellipta nausea Drug Allergy Nov, Active Solu-Medrol rash, swelling Drug Allergy Nov, Active Paxil Unknown Drug Allergy Nov, Active Hydrocodone-Acetaminophen hives Drug Allergy Nov, Active Doxycycline Hyclate local swellling Drug Allergy Nov, Active Codeine Sulfate hives Drug Allergy Nov, Active Oxybutynin 5 Ea Tablet mouth sores Non Drug Allergy Nov, Active Iodinated Contrast Media - Iv Dye unknown Non Drug Allergy Nov, Active SOCIAL HISTORY Never Assessed PLAN OF CARE Activity Details Follow Up 4 Weeks Reason: VITAL SIGNS Height 67 in 2016-11-17 Weight 189.2 lbs 2016-11-17 Heart Rate 92 bpm 2016-11-17 Respiratory Rate 20 2016-11-17 BMI 29.63 kg/m2 2016-11-17 Blood pressure systolic 102 mmHg 2016-11-17 Blood pressure diastolic 74 mmHg 2016-11-17 MEDICATIONS Medication Instructions Dosage Frequency Start Date End Date Duration Status Tramadol HCl 50 mg Orally 4 times a day PRN PAIN 1-2 tablets Active Meloxicam 7.5 MG Orally twice a day as needed for pain 1 tablet Active Xeljanz 5 mg 1 Tablet by Oral route 2 times per day Dec, Active Atorvastatin Calcium 40 MG Orally Once a day 1 tablet 24h Active Omeprazole 40 MG Orally Once a day 1 capsule 24h 90 Active Venlafaxine HCl ER 150 MG Orally twice a day 1 capsule with food 12h 30 days Active Zofran 4 MG Orally 3 times a day 1 tablet 8h May, 07 days Active ProAir HFA 108 (90 Base) MCG/ACT INHALE TWO PUFFS BY MOUTH FOUR TIMES PER DAY NEEDED FOR SHORTNESS OF BREATH 25 Active Advair Diskus 100-50 MCG/DOSE Inhalation Twice a day 1 puff 12h Jul, Active Vitamin D3 2000 UNIT Orally Once a day 1 capsule 24h Active Effexor XR 150 MG TAKE ONE CAPSULE BY MOUTH TWICE DAILY WITH FOOD 30 Active Gabapentin 300 MG Orally 2 times a day 1 capsule 12h Nov, 30 day(s) Active Trulicity 0.75 MG/0.5ML INJECT 0.5 MLS SUBCUTANEOUSLY ONCE A WEEK 28 Active Albuterol Sulfate 2.5 mg /3 mL (0.083 %) 1 Each by Inhalation route every 4 hours for cough and wheeze PRN for wheezing or cough Jul, Active Zetia 10 MG Orally Once a day 1 tablet 24h Active Morphine Sulfate 15 MG Orally Once a day PRN PAIN .5 tablet February, Active Metoprolol Tartrate 25 MG Orally Twice a day 1 tablet with food 12h Active Cyclobenzaprine HCl 10 mg Orally Three times a day 1 tablet as needed 8h Jul, Active RESULTS No Results PROCEDURES Procedure Date Ordered Result Body Site [facility] VISIT ESTABLISHED PATIENT Nov 17, 2016 IMMUNIZATIONS No Known Immunizations MEDICAL (GENERAL) HISTORY Type Description Date Medical History Cardiovascular [id number]-[id number], non-obstructive per HC ( 01/2011) Dr. Mendoza Medical History Stress test 03/07/13-Dr. Kelly Dietrich normal Medical History Hypertension Medical History Asthma Medical History Gastrointestinal Disorder--IBS, GERD, Hx of fatty liver Medical History Hernia 1979 Medical History Cervical dysplasia 02/16-Pap LGSIL/[place]-mild dysplasia Medical History Hyperlipidemia Medical History Rheumatoid [...] Kidney injury 07/10/15-07/11/2015 Hospitalization History Symptomatic Hypokalemia/Nause-Via [facility] 05/13/16 Hospitalization History Stroke 05/03/2017
[2017-08-24] MEDS: NS IV 1000 ML 1,000 ML IV SCH ×3 (10:18→23:53)
--- OUTSIDE RECORDS SUMMARY | 2017-08-24 10:19 | XMS REPORT ---
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 Active 877570006 Problem Other insomnia G47.09 Active 264975887 Problem Neuropathy G62.9 Active 510753934 Problem Obstructive sleep apnea G47.33 Active 94242121 Problem Chronic obstructive pulmonary disease, unspecified J44.9 Active 40726248713832192 Problem Generalized anxiety disorder F41.1 Active 22234937 Problem ADHD (attention deficit hyperactivity disorder), combined type F90.2 Active 51941271 Problem Asthma J45.909 Active 579794857 Problem Hypertension I10 Active 18088800 Problem Rheumatoid arthritis M06.9 Active 34678708 Problem Chronic pain syndrome G89.4 Active 559069029 Problem Weight gain R63.5 Active 8714181 Problem Mixed hyperlipidemia E78.2 Active 869374488 ALLERGIES Substance Reaction Event Type Date Status Breo Ellipta nausea Drug Allergy February, Active Solu-Medrol rash, swelling Drug Allergy February, Active Paxil Unknown Drug Allergy February, Active Hydrocodone-Acetaminophen hives Drug Allergy February, Active Doxycycline Hyclate local swellling Drug Allergy February, Active Codeine Sulfate hives Drug Allergy February, Active Oxybutynin 5 Ea Tablet mouth sores Non Drug Allergy February, Active Iodinated Contrast Media - Iv Dye unknown Non Drug Allergy February, Active SOCIAL HISTORY Never Assessed PLAN OF CARE Activity Details Follow Up prn Reason: VITAL SIGNS MEDICATIONS Medication Instructions Dosage Frequency Start Date End Date Duration Status Zetia 10 MG Orally Once a day 1 tablet 24h Active Oxygen as directed Jan, Active Advair Diskus 100-50 MCG/DOSE Inhalation Twice a day 1 puff 12h Jul, Active Tramadol HCl 50 mg Orally 4 times a day PRN PAIN 1-2 tablets Active ProAir HFA 108 (90 Base) MCG/ACT INHALE TWO PUFFS BY MOUTH FOUR TIMES PER DAY NEEDED FOR SHORTNESS OF BREATH 25 Active Zofran 4 MG Orally 3 times a day 1 tablet 8h May, 07 days Active Effexor XR 150 MG Orally 2 times a day 1 capsule with food 12h 30 Active Omeprazole 40 MG Orally Once a day 1 capsule 24h 90 Active Trulicity 0.75 MG/0.5ML INJECT 0.5 MLS SUBCUTANEOUSLY ONCE A WEEK 28 Active Cyclobenzaprine HCl 10 MG Orally 2 times a day 1 tablet as needed 12h Jul, Active Albuterol Sulfate (2.5 MG/3ML) 0.083% Inhalation every 4 hours 3 ml as needed for cough or wheeze 4h Jul, 90 days Active Xeljanz 5 mg 1 Tablet by Oral route 2 times per day Dec, Active Metoprolol Tartrate 25 MG Orally Twice a day 1 tablet with food 12h Active Gabapentin 600 MG Orally 2 times a day 1 capsule 12h Nov, 30 day(s) Active Morphine Sulfate 15 mg Orally Once a day PRN PAIN .5 tablet February, Active RESULTS No Results PROCEDURES Procedure Date Ordered Result Body Site PULMONARY FUNCTION TEST (IN-HOUSE) 2017-03-02 Normal NEB/MDI DEMO March 02, 2017 RESPIRATORY FLOW VOLUME LOOP March 02, 2017 SPIROMETRY March 02, 2017 IMMUNIZATIONS No Known Immunizations MEDICAL (GENERAL) HISTORY Type Description Date Medical History Cardiovascular kzqzxhee-RKX-Ugxmilka, 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 Mendoza Medical History Stress test 03/07/13-Dr. Kelly Dietrich normal Medical History Hypertension Medical History Asthma Medical History Gastrointestinal Disorder--IBS, GERD, Hx of fatty liver Medical History Hernia 1979 Medical History Cervical dysplasia 02/16-Pap LGSIL/[place]-mild dysplasia Medical History Hyperlipidemia Medical History Rheumatoid [...] Kidney injury 07/10/15-07/11/2015 Hospitalization History Symptomatic Hypokalemia/Nause-[facility] 05/13/16 Hospitalization History Stroke 05/03/2017
--- OUTSIDE RECORDS SUMMARY | 2017-08-24 10:20 | XMS REPORT ---
Author Author LORI SNOWDEN Organization [facility] Address [address] [place] [address] Care Team Providers Care Deputy County Clerk Name Role Phone LORI SNOWDEN Unavailable PROBLEMS Type Condition ICD9-CM Code [id number] Code Onset Dates Condition Status SNOMED Code Problem Arteriosclerotic coronary artery disease I25.10 Active 97889371 Problem Hyperinsulinemia E16.1 Active 56632670 Problem Persistent depressive disorder F34.1 Active 70903135 Problem Cerebrovascular accident (CVA), unspecified mechanism I63.9 Active 918890027 Problem Other exterminator termite (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 Active 461479081 Problem Other insomnia G47.09 Active 127761264 Problem Neuropathy G62.9 Active 916907913 Problem Obstructive sleep apnea G47.33 Active 26887485 Problem Chronic obstructive pulmonary disease, unspecified J44.9 Active 68994166103208152 Problem Generalized anxiety disorder F41.1 Active 71037820 Problem ADHD (attention deficit hyperactivity disorder), combined type F90.2 Active 55381661 Problem Asthma J45.909 Active 622988028 Problem Hypertension I10 Active 81902326 Problem Rheumatoid arthritis M06.9 Active 55516673 Problem Chronic pain syndrome G89.4 Active 406725292 Problem Weight gain R63.5 Active 8222998 Problem Mixed hyperlipidemia E78.2 Active 805293208 ALLERGIES No Information SOCIAL HISTORY Never Assessed PLAN OF CARE VITAL SIGNS MEDICATIONS Medication Instructions Dosage Frequency Start Date End Date Duration Status Morphine Sulfate 15 MG Orally Once a day PRN PAIN .5 tablet February, Active RESULTS No Results PROCEDURES No Known procedures IMMUNIZATIONS No Known Immunizations MEDICAL (GENERAL) HISTORY Type Description Date Medical History Cardiovascular bdlqozcs-DHG-Emkliwkj, 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 Mendoza Medical History Stress test 03/07/13-Dr. Kelly Dietrich normal Medical History Hypertension Medical History Asthma Medical History Gastrointestinal Disorder--IBS, GERD, Hx of fatty liver Medical History Hernia 1978 Medical History Cervical dysplasia 02/16-Pap LGSIL/[place]-mild dysplasia Medical History Hyperlipidemia Medical History Rheumatoid arthritis ([place]) in remission 11/27/14 pain she has probably [...] Kidney injury 07/10/15-07/11/2015 Hospitalization History Symptomatic Hypokalemia/Nause-[facility]ia [facility] 05/13/16 Hospitalization History Stroke 05/03/2017
--- OUTSIDE RECORDS SUMMARY | 2017-08-24 10:20 | XMS REPORT ---
Author Author LORI SNOWDEN Organization [facility] Address [address] [place] [address] Care Team Providers Care Worksite Wellness Practitioner Name Role Phone LORI SNOWDEN Unavailable PROBLEMS Type Condition ICD9-CM Code QSQ67-XH Code Onset Dates Condition Status SNOMED Code Problem Arteriosclerotic coronary artery disease I25.10 Active 84230413 Problem Hyperinsulinemia E16.1 Active 67953802 Problem Persistent depressive disorder F34.1 Active 03012547 Problem Cerebrovascular accident (CVA), unspecified mechanism I63.9 Active 388099569 Problem Other termination clerk (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 Active 180625133 Problem Other insomnia G47.09 Active 598756326 Problem Neuropathy G62.9 Active 881534473 Problem Obstructive sleep apnea G47.33 Active 93815319 Problem Chronic obstructive pulmonary disease, unspecified J44.9 Active 96319855347141675 Problem Generalized anxiety disorder F41.1 Active 15650528 Problem ADHD (attention deficit hyperactivity disorder), combined type F90.2 Active 49620577 Problem Asthma J45.909 Active 505518545 Problem Hypertension I10 Active 55695156 Problem Rheumatoid arthritis M06.9 Active 30036263 Problem Chronic pain syndrome G89.4 Active 618796702 Problem Weight gain R63.5 Active 9221912 Problem Mixed hyperlipidemia E78.2 Active 586782569 ALLERGIES No Information SOCIAL HISTORY Never Assessed PLAN OF CARE VITAL SIGNS MEDICATIONS Medication Instructions Dosage Frequency Start Date End Date Duration Status Morphine Sulfate 15 MG Orally Once a day PRN PAIN .5 tablet February, Active RESULTS No Results PROCEDURES No Known procedures IMMUNIZATIONS No Known Immunizations MEDICAL (GENERAL) HISTORY Type Description Date Medical History Cardiovascular hwtahyuo-LQL-Ueqmysbt, 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 Mendoza Medical History Stress test 03/07/13-Dr. Kelly Dietrich normal Medical History Hypertension Medical History Asthma Medical History Gastrointestinal Disorder--IBS, GERD, Hx of fatty liver Medical History Hernia 1978 Medical History Cervical dysplasia 02/16-Pap LGSIL/[place]-mild dysplasia Medical History Hyperlipidemia Medical History Rheumatoid arthritis ([place]) in remission 11/27/14 pain she has probably [...] Kidney injury 07/10/15-07/11/2015 Hospitalization History Symptomatic Hypokalemia/Nause-[facility] 05/13/16 Hospitalization History Stroke 05/03/2017
[2017-08-24 10:22] LABS: SQUAMOUS EPITHELIAL CELL,UR 0-2 /HPF
--- OUTSIDE RECORDS SUMMARY | 2017-08-24 10:22 | XMS REPORT ---
Author Author ZENAIDA BROTHERS Organization [facility] Address [address] [place] [address] Care Team Providers Care Health And Safety Manager Name Role Phone KELLY BROTHERSJASON Unavailable PROBLEMS Type Condition ICD9-CM Code [id number] Code Onset Dates Condition Status SNOMED Code Problem Arteriosclerotic coronary artery disease I25.10 Active 44591293 Problem Hyperinsulinemia E16.1 Active 22692940 Problem Persistent depressive disorder F34.1 Active 05162964 Problem Cerebrovascular accident (CVA), unspecified mechanism I63.9 Active 263613109 Problem 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 project manager (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 Active 846594214 Problem Other insomnia G47.09 Active 744319284 Problem Neuropathy G62.9 Active 406740948 Problem Obstructive sleep apnea G47.33 Active 23813056 Problem Chronic obstructive pulmonary disease, unspecified J44.9 Active 95414729578166509 Problem Generalized anxiety disorder F41.1 Active 71366792 Problem ADHD (attention deficit hyperactivity disorder), combined type F90.2 Active 46309548 Problem Asthma J45.909 Active 179751825 Problem Hypertension I10 Active 43260217 Problem Rheumatoid arthritis M06.9 Active 35295693 Problem Chronic pain syndrome G89.4 Active 459451901 Problem Weight gain R63.5 Active 2058095 Problem Mixed hyperlipidemia E78.2 Active 415146239 ALLERGIES Substance Reaction Event Type Date Status Breo Ellipta nausea Drug Allergy Dec, Active Solu-Medrol rash, swelling Drug Allergy Dec, Active Paxil Unknown Drug Allergy Dec, Active Hydrocodone-Acetaminophen hives Drug Allergy Dec, Active Doxycycline Hyclate local swellling Drug Allergy Dec, Active Codeine Sulfate hives Drug Allergy Dec, Active Oxybutynin 5 Ea Tablet mouth sores Non Drug Allergy Dec, Active Iodinated Contrast Media - Iv Dye unknown Non Drug Allergy Dec, Active SOCIAL HISTORY Never Assessed PLAN OF CARE Activity Details Follow Up 4 Weeks Reason: VITAL SIGNS Height 67 in 2016-12-18 Weight 186.5 lbs 2016-12-18 Heart Rate 124 bpm 2016-12-18 Respiratory Rate 22 2016-12-18 BMI 29.21 kg/m2 2016-12-18 Blood pressure systolic 123 mmHg 2016-12-18 Blood pressure diastolic 86 mmHg 2016-12-18 MEDICATIONS Medication Instructions Dosage Frequency Start Date End Date Duration Status Zofran 4 MG Orally 3 times a day 1 tablet 8h May, 07 days Active Tramadol HCl 50 mg Orally 4 times a day PRN PAIN 1-2 tablets Active Morphine Sulfate 15 MG Orally Once a day PRN PAIN .5 tablet February, Active Cyclobenzaprine HCl 10 mg Orally Three times a day 1 tablet as needed 8h Jul, Active Metoprolol Tartrate 25 MG Orally Twice a day 1 tablet with food 12h Active ProAir HFA 108 (90 Base) MCG/ACT INHALE TWO PUFFS BY MOUTH FOUR TIMES PER DAY NEEDED FOR SHORTNESS OF BREATH 25 Active Albuterol Sulfate 2.5 mg /3 mL (0.083 %) 1 Each by Inhalation route every 4 hours for cough and wheeze PRN for wheezing or cough Jul, Active Xeljanz 5 mg 1 Tablet by Oral route 2 times per day Dec, Active Zetia 10 MG Orally Once a day 1 tablet 24h Active Effexor XR 150 MG Orally Once a day 1 capsule with food 24h 30 Active Gabapentin 600 MG Orally 2 times a day 1 capsule 12h Nov, 30 day(s) Active Advair Diskus 100-50 MCG/DOSE Inhalation Twice a day 1 puff 12h Jul, Active Vitamin D3 2000 UNIT Orally Once a day 1 capsule 24h Active Venlafaxine HCl ER 150 MG Orally twice a day 1 capsule with food 12h 30 days Active Trulicity 0.75 MG/0.5ML INJECT 0.5 MLS SUBCUTANEOUSLY ONCE A WEEK 28 Active Atorvastatin Calcium 40 MG Orally Once a day 1 tablet 24h Active Omeprazole 40 MG Orally Once a day 1 capsule 24h 90 Active Meloxicam 7.5 MG Orally twice a day as needed for pain 1 tablet Active RESULTS No Results PROCEDURES Procedure Date Ordered Result Body Site [facility] VISIT ESTABLISHED PATIENT December 18, 2016 IMMUNIZATIONS No Known Immunizations MEDICAL (GENERAL) HISTORY Type Description Date Medical History Cardiovascular kucfeuom-BHS-Fqavyaxn, non-obstructive per HC ( 01/2011) Dr. Mendoza Medical History Stress test 03/07/13-Dr. Kelly Dietrich normal Medical History Hypertension Medical History Asthma Medical History Gastrointestinal Disorder--IBS, GERD, Hx of fatty liver Medical History Hernia 1979 Medical History Cervical dysplasia 02/16-Pap LGSIL/[place]-mild dysplasia Medical History Hyperlipidemia Medical History Rheumatoid arthritis ([place]) in remission 11/27/14 pain she has probably [...] Kidney injury 07/10/15-07/11/2015 Hospitalization History Symptomatic Hypokalemia/Nause-[facility]ia [facility] 05/13/16 Hospitalization History Stroke 05/03/2017
--- OUTSIDE RECORDS SUMMARY | 2017-08-24 10:23 | XMS REPORT ---
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 Active 399689085 Problem Other insomnia G47.09 Active 747748285 Problem Neuropathy G62.9 Active 074183101 Problem Obstructive sleep apnea G47.33 Active 70772851 Problem Chronic obstructive pulmonary disease, unspecified J44.9 Active 64260496949530174 Problem Generalized anxiety disorder F41.1 Active 35485230 Problem ADHD (attention deficit hyperactivity disorder), combined type F90.2 Active 39555613 Problem Asthma J45.909 Active 403110278 Problem Hypertension I10 Active 34963727 Problem Rheumatoid arthritis M06.9 Active 97091351 Problem Chronic pain syndrome G89.4 Active 896782973 Problem Weight gain R63.5 Active 6859810 Problem Mixed hyperlipidemia E78.2 Active 816089151 ALLERGIES No Information SOCIAL HISTORY Never Assessed PLAN OF CARE VITAL SIGNS MEDICATIONS Medication Instructions Dosage Frequency Start Date End Date Duration Status Cyclobenzaprine HCl 10 mg Orally Three times a day 1 tablet as needed 8h 19 Jul, 2016 Active RESULTS No Results PROCEDURES No Known procedures IMMUNIZATIONS No Known Immunizations MEDICAL (GENERAL) HISTORY Type Description Date Medical History Cardiovascular dpoavzwu-OAT-Apsjyskk, 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 Mendoza Medical History Stress test 03/07/13-Dr. Kelly Dietrich normal Medical History Hypertension Medical History Asthma Medical History Gastrointestinal Disorder--IBS, GERD, Hx of fatty liver Medical History Hernia 1978 Medical History Cervical dysplasia 02/16-Pap LGSIL/[place]-mild dysplasia Medical History Hyperlipidemia Medical History Rheumatoid [...] Kidney injury 07/10/15-07/11/2015 Hospitalization History Symptomatic Hypokalemia/Nause-[facility]ia [facility] 05/13/16 Hospitalization History Stroke 05/03/2017
--- OUTSIDE RECORDS SUMMARY | 2017-08-24 10:23 | XMS REPORT ---
Author Author LORI SNOWDEN Organization [facility] Address [address] [place] [address] Care Team Providers Care Book Sewer Name Role Phone LORI SNOWDEN Unavailable PROBLEMS Type Condition ICD9-CM Code [id number] Code Onset Dates Condition Status SNOMED Code Problem Arteriosclerotic coronary artery disease I25.10 Active 12094488 Problem Hyperinsulinemia E16.1 Active 10716703 Problem Persistent depressive disorder F34.1 Active 89639390 Problem Cerebrovascular accident (CVA), unspecified mechanism I63.9 Active 298034986 Problem Other lobsterman (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 Active 719472125 Problem Other insomnia G47.09 Active 118444695 Problem Neuropathy G62.9 Active 812623429 Problem Obstructive sleep apnea G47.33 Active 56163864 Problem Chronic obstructive pulmonary disease, unspecified J44.9 Active 72345784363229941 Problem Generalized anxiety disorder F41.1 Active 12620995 Problem ADHD (attention deficit hyperactivity disorder), combined type F90.2 Active 05183385 Problem Asthma J45.909 Active 520319745 Problem Hypertension I10 Active 98652894 Problem Rheumatoid arthritis M06.9 Active 70260511 Problem Chronic pain syndrome G89.4 Active 266837252 Problem Weight gain R63.5 Active 6996006 Problem Mixed hyperlipidemia E78.2 Active 503623994 ALLERGIES Substance Reaction Event Type Date Status Breo Ellipta nausea Drug Allergy Jan, Active Solu-Medrol rash, swelling Drug Allergy Jan, Active Paxil Unknown Drug Allergy Jan, Active Hydrocodone-Acetaminophen hives Drug Allergy Jan, Active Doxycycline Hyclate local swellling Drug Allergy Jan, Active Codeine Sulfate hives Drug Allergy Jan, Active Oxybutynin 5 Ea Tablet mouth sores Non Drug Allergy Jan, Active Iodinated Contrast Media - Iv Dye unknown Non Drug Allergy Jan, Active SOCIAL HISTORY Never Assessed PLAN OF CARE Activity Details Follow Up 4 Weeks Reason:insomnia VITAL SIGNS Height 67 in 2017-01-25 Weight 197.4 lbs 2017-01-25 Temperature 98.3 degrees Fahrenheit 2017-01-25 Heart Rate 83 bpm 2017-01-25 Respiratory Rate 22 2017-01-25 Oximetry 98 % 2017-01-25 BMI 30.91 kg/m2 2017-01-25 Blood pressure systolic 118 mmHg 2017-01-25 Blood pressure diastolic 78 mmHg 2017-01-25 MEDICATIONS Medication Instructions Dosage Frequency Start Date End Date Duration Status Zetia 10 MG Orally Once a day 1 tablet 24h Active Morphine Sulfate 15 MG Orally Once a day PRN PAIN .5 tablet February, Active Albuterol Sulfate 2.5 mg /3 mL (0.083 %) 1 Each by Inhalation route every 4 hours for cough and wheeze PRN for wheezing or cough Jul, Active Metoprolol Tartrate 25 MG Orally Twice a day 1 tablet with food 12h Active Trulicity 0.75 MG/0.5ML INJECT 0.5 MLS SUBCUTANEOUSLY ONCE A WEEK 28 Active Effexor XR 150 MG Orally Once a day 1 capsule with food 24h 30 Active Oxygen as directed Jan, Active Advair Diskus 100-50 MCG/DOSE Inhalation Twice a day 1 puff 12h Jul, Active Zofran 4 MG Orally 3 times a day 1 tablet 8h May, 07 days Active Omeprazole 40 MG Orally Once a day 1 capsule 24h 90 Active Cyclobenzaprine HCl 10 MG Orally 2 times a day 1 tablet as needed 12h Jul, Active Xeljanz 5 mg 1 Tablet by Oral route 2 times per day Dec, Active Tramadol HCl 50 mg Orally 4 times a day PRN PAIN 1-2 tablets Active ProAir HFA 108 (90 Base) MCG/ACT INHALE TWO PUFFS BY MOUTH FOUR TIMES PER DAY NEEDED FOR SHORTNESS OF BREATH 25 Active Atorvastatin Calcium 40 MG Orally Once a day 1 tablet 24h Active Gabapentin 600 MG Orally 2 times a day 1 capsule 12h Nov, 30 day(s) Active RESULTS Name Result Date Reference Range Xray : Shoulder, Left 2 view (IN HOUSE) 2017-01-25 PROCEDURES Procedure Date Ordered Result Body Site MEASURE BLOOD OXYGEN LEVEL January 25, 2017 X-RAY EXAM OF SHOULDER January 25, 2017 [facility] VISIT ESTABLISHED PATIENT January 25, 2017 IMMUNIZATIONS No Known Immunizations MEDICAL (GENERAL) HISTORY Type Description Date Medical History Cardiovascular usljjlpr-XBP-Xyeuinot, non-obstructive per [facility] ( 01/2011) Dr. Mendoza Medical History Stress test 03/07/13-Dr. Kelly Dietrich normal Medical History Hypertension Medical History Asthma Medical History Gastrointestinal Disorder--IBS, GERD, Hx of fatty liver Medical History Hernia 1979 Medical History Cervical dysplasia 02/16-Pap LGSIL/[place]-mild dysplasia Medical History Hyperlipidemia Medical History Rheumatoid [...] Kidney injury 07/10/15-07/11/2015 Hospitalization History Symptomatic Hypokalemia/Nause-[facility]ia [facility] 05/13/16 Hospitalization History Stroke 05/03/2017
--- OUTSIDE RECORDS SUMMARY | 2017-08-24 10:24 | XMS REPORT ---
Author Author LORI SNOWDEN Organization [facility] Address [address] [place] [address] Care Team Providers Care Composite Boat Builder Name Role Phone LORI SNOWDEN Unavailable PROBLEMS Type Condition ICD9-CM Code [id number] Code Onset Dates Condition Status SNOMED Code Problem Arteriosclerotic coronary artery disease I25.10 Active 36167635 Problem Hyperinsulinemia E16.1 Active 05122223 Problem Persistent depressive disorder F34.1 Active 20915081 Problem Cerebrovascular accident (CVA), unspecified mechanism I63.9 Active 455814141 Problem Other stage settings painter (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 Active 888172381 Problem Other insomnia G47.09 Active 048251930 Problem Neuropathy G62.9 Active 155217267 Problem Obstructive sleep apnea G47.33 Active 70253196 Problem Chronic obstructive pulmonary disease, unspecified J44.9 Active 52890272135661595 Problem Generalized anxiety disorder F41.1 Active 30193690 Problem ADHD (attention deficit hyperactivity disorder), combined type F90.2 Active 40543938 Problem Asthma J45.909 Active 681139160 Problem Hypertension I10 Active 91974935 Problem Rheumatoid arthritis M06.9 Active 67962843 Problem Chronic pain syndrome G89.4 Active 778727659 Problem Weight gain R63.5 Active 7517174 Problem Mixed hyperlipidemia E78.2 Active 515982250 ALLERGIES Substance Reaction Event Type Date Status [...] PLAN OF CARE Activity Details Follow Up 3 Months Reason:Trulicity VITAL SIGNS Height 67 in 2016-11-16 Weight 188 lbs 2016-11-16 Temperature 98.6 degrees Fahrenheit 2016-11-16 Heart Rate 92 bpm 2016-11-16 Respiratory Rate 20 2016-11-16 BMI 29.44 kg/m2 2016-11-16 Blood pressure systolic 118 mmHg 2016-11-16 Blood pressure diastolic 78 mmHg 2016-11-16 MEDICATIONS Medication Instructions Dosage Frequency Start Date End Date Duration Status Zetia 10 MG Orally Once a day 1 tablet 24h Active Atorvastatin Calcium 40 MG Orally Once a day 1 tablet 24h Active Metoprolol Tartrate 25 MG Orally Twice a day 1 tablet with food 12h Active Tramadol HCl 50 mg Orally 4 times a day PRN PAIN 1-2 tablets Active Meloxicam 7.5 MG Orally twice a day as needed for pain 1 tablet Active Zofran 4 MG Orally 3 times a day 1 tablet 8h May, 07 days Active Trulicity 0.75 MG/0.5ML INJECT 0.5 MLS SUBCUTANEOUSLY ONCE A WEEK 28 Active Albuterol Sulfate 2.5 mg /3 mL (0.083 %) 1 Each by Inhalation route every 4 hours for cough and wheeze PRN for wheezing or cough Jul, Active Advair Diskus 100-50 MCG/DOSE Inhalation Twice a day 1 puff 12h Jul, Active Xeljanz 5 mg 1 Tablet by Oral route 2 times per day Dec, Active ProAir HFA 108 (90 Base) MCG/ACT INHALE TWO PUFFS BY MOUTH FOUR TIMES PER DAY NEEDED FOR SHORTNESS OF BREATH 25 Active Effexor XR 150 MG TAKE ONE CAPSULE BY MOUTH TWICE DAILY WITH FOOD 30 Active Cyclobenzaprine HCl 10 mg Orally Three times a day 1 tablet as needed 8h Jul, Active Vitamin D3 2000 UNIT Orally Once a day 1 capsule 24h Active Omeprazole 40 MG Orally Once a day 1 capsule 24h 90 Active RESULTS No Results PROCEDURES Procedure Date Ordered Result Body Site [facility] VISIT ESTABLISHED PATIENT Nov 16, 2016 IMMUNIZATIONS No Known Immunizations MEDICAL (GENERAL) HISTORY Type Description Date Medical History Cardiovascular pjlheqto-OKX-Itavdlee, 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 Mendoza Medical History Stress test 03/07/13-Dr. Kelly Dietrich normal Medical History Hypertension Medical History Asthma Medical History Gastrointestinal Disorder--IBS, GERD, Hx of fatty liver Medical History Hernia 1978 Medical History Cervical dysplasia 02/16-Pap LGSIL/[place]-mild dysplasia Medical History Hyperlipidemia Medical History Rheumatoid [...] Kidney injury 07/10/15-07/11/2015 Hospitalization History Symptomatic Hypokalemia/Nause-[facility]ia [facility] 05/13/16 Hospitalization History Stroke 05/03/2017
--- OUTSIDE RECORDS SUMMARY | 2017-08-24 10:25 | XMS REPORT ---
Author Author LORI SNOWDEN Organization [facility] Address [address] [place] [address] Care Team Providers Care Mend Worker Name Role Phone LORI SNOWDEN Unavailable PROBLEMS Type Condition ICD9-CM Code [id number] Code Onset Dates Condition Status SNOMED Code Problem Neuropathy G62.9 Active 259071115 Problem Chronic obstructive pulmonary disease, unspecified J44.9 Active 31375205245159295 Problem Other insomnia G47.09 Active 813207539 Problem Dysthymic disorder F34.1 Active 94575137 Problem Rheumatoid arthritis involving multiple sites, unspecified rheumatoid factor presence M06.9 Active 317569872 Problem 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 Active 701017664 Problem Obstructive sleep apnea G47.33 Active 91343681 Problem Sleep apnea in adult G47.30 Active 23907637 Problem Cerebrovascular accident (CVA), unspecified mechanism I63.9 Active 954725107 Problem Rheumatoid arthritis M06.9 Active 37908543 Problem Weight gain R63.5 Active 5249055 Problem Generalized anxiety disorder F41.1 Active 83745781 Problem ADHD (attention deficit hyperactivity disorder), combined type F90.2 Active 26611472 Problem Hypertension I10 Active 53210087 Problem Mixed hyperlipidemia E78.2 Active 978297656 Problem Chronic pain syndrome G89.4 Active 331184034 Problem Arteriosclerotic coronary artery disease I25.10 Active 55812271 Problem Asthma J45.909 Active 680777848 Problem Hyperinsulinemia E16.1 Active 21334569 ALLERGIES Substance Reaction Event Type Date Status [...] PLAN OF CARE Activity Details Follow Up 2 Months Reason:hypoxia VITAL SIGNS Height 67 in 2017-02-24 Weight 196.4 lbs 2017-02-24 Temperature 98.6 degrees Fahrenheit 2017-02-24 Heart Rate 93 bpm 2017-02-24 Respiratory Rate 20 2017-02-24 Oximetry on room air:98 % 2017-02-24 BMI 30.76 kg/m2 2017-02-24 Blood pressure systolic 130 mmHg 2017-02-24 Blood pressure diastolic 70 mmHg 2017-02-24 MEDICATIONS Medication Instructions Dosage Frequency Start Date End Date Duration Status Cyclobenzaprine HCl 10 MG Orally 2 times a day 1 tablet as needed 12h Jul, Active Advair Diskus 100-50 MCG/DOSE Inhalation Twice a day 1 puff 12h Jul, Active Metoprolol Tartrate 25 MG Orally Twice a day 1 tablet with food 12h Active Albuterol Sulfate (2.5 MG/3ML) 0.083% Inhalation every 4 hours 3 ml as needed for cough or wheeze 4h Jul, 90 days Active Omeprazole 40 MG Orally Once a day 1 capsule 24h 90 Active Effexor XR 150 MG Orally Once a day 1 capsule with food 24h 30 Active Trulicity 0.75 MG/0.5ML INJECT 0.5 MLS SUBCUTANEOUSLY ONCE A WEEK 28 Active Morphine Sulfate 15 mg Orally Once a day PRN PAIN .5 tablet February, Active Tramadol HCl 50 mg Orally 4 times a day PRN PAIN 1-2 tablets Active Xeljanz 5 mg 1 Tablet by Oral route 2 times per day Dec, Active ProAir HFA 108 (90 Base) MCG/ACT INHALE TWO PUFFS BY MOUTH FOUR TIMES PER DAY NEEDED FOR SHORTNESS OF BREATH 25 Active Zetia 10 MG Orally Once a day 1 tablet 24h Active Oxygen as directed Jan, Active Gabapentin 600 MG Orally 2 times a day 1 capsule 12h 07 Nov, 2016 30 day(s) Active Zofran 4 MG Orally 3 times a day 1 tablet 8h May, 07 days Active RESULTS No Results PROCEDURES Procedure Date Ordered Result Body Site MEASURE BLOOD OXYGEN LEVEL February 24, 2017 [facility] VISIT ESTABLISHED PATIENT February 24, 2017 IMMUNIZATIONS No Known Immunizations MEDICAL (GENERAL) HISTORY Type Description Date Medical History Cardiovascular kzqjyenx-AZT-Vdyoinmx, non-obstructive per HC ( 01/2011) Dr. Mendoza Medical History Stress test 03/07/13-Dr. Kelly Dietrich normal Medical History Hypertension Medical History Asthma Medical History Gastrointestinal Disorder--IBS, GERD, Hx of fatty liver Medical History Hernia 1979 Medical History Cervical dysplasia 02/16-Pap LGSIL/[place]-mild dysplasia Medical History Hyperlipidemia Medical History Rheumatoid [...]
--- OUTSIDE RECORDS SUMMARY | 2017-08-24 10:28 | XMS REPORT ---
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 Active 545001989 Problem Other insomnia G47.09 Active 485621378 Problem Neuropathy G62.9 Active 931565439 Problem Obstructive sleep apnea G47.33 Active 74094953 Problem Chronic obstructive pulmonary disease, unspecified J44.9 Active 99730194444821014 Problem Generalized anxiety disorder F41.1 Active 83645705 Problem ADHD (attention deficit hyperactivity disorder), combined type F90.2 Active 00501530 Problem Asthma J45.909 Active 905546169 Problem Hypertension I10 Active 34376564 Problem Rheumatoid arthritis M06.9 Active 97144512 Problem Chronic pain syndrome G89.4 Active 588760493 Problem Weight gain R63.5 Active 5984648 Problem Mixed hyperlipidemia E78.2 Active 032956502 ALLERGIES Substance Reaction Event Type Date Status Breo Ellipta nausea Drug Allergy Oct, Active Solu-Medrol rash, swelling Drug Allergy Oct, Active Paxil Unknown Drug Allergy Oct, Active Hydrocodone-Acetaminophen hives Drug Allergy Oct, Active Doxycycline Hyclate local swellling Drug Allergy Oct, Active Codeine Sulfate hives Drug Allergy Oct, Active Oxybutynin 5 Ea Tablet mouth sores Non Drug Allergy Oct, Active Iodinated Contrast Media - Iv Dye unknown Non Drug Allergy Oct, Active SOCIAL HISTORY No smoking Hx information available PLAN OF CARE Activity Details Follow Up 4 Weeks Reason:BH F/U VITAL SIGNS MEDICATIONS Unknown Medications RESULTS No Results PROCEDURES Procedure Date Ordered Related Diagnosis Body Site [facility] VISIT MENTAL HEALTH ESTAB PT Oct 19, 2016 Psychotherapy, patient &/family, 45 minutes, established patient Oct 19, 2016 IMMUNIZATIONS No Known Immunizations
--- OUTSIDE RECORDS SUMMARY | 2017-08-24 10:28 | XMS REPORT ---
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 Active 093467371 Problem Other insomnia G47.09 Active 433484956 Problem Neuropathy G62.9 Active 989299380 Problem Obstructive sleep apnea G47.33 Active 26588411 Problem Chronic obstructive pulmonary disease, unspecified J44.9 Active 66436281449768131 Problem Generalized anxiety disorder F41.1 Active 55837066 Problem ADHD (attention deficit hyperactivity disorder), combined type F90.2 Active 39397056 Problem Asthma J45.909 Active 582990573 Problem Hypertension I10 Active 20597923 Problem Rheumatoid arthritis M06.9 Active 85944317 Problem Chronic pain syndrome G89.4 Active 959487273 Problem Weight gain R63.5 Active 8246262 Problem Mixed hyperlipidemia E78.2 Active 815284837 ALLERGIES No Information SOCIAL HISTORY Never Assessed PLAN OF CARE VITAL SIGNS MEDICATIONS Unknown Medications RESULTS No Results PROCEDURES No Known procedures IMMUNIZATIONS No Known Immunizations MEDICAL (GENERAL) HISTORY Type Description Date Medical History Cardiovascular srughbew-XUT-Swiyweph, 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 Mendoza Medical History Stress test 03/07/13-Dr. Kelly Dietrich normal Medical History Hypertension Medical History Asthma Medical History Gastrointestinal Disorder--IBS, GERD, Hx of fatty liver Medical History Hernia 1979 Medical History Cervical dysplasia 02/16-Pap LGSIL/[place]-mild dysplasia Medical History Hyperlipidemia Medical History Rheumatoid [...] Kidney injury 07/10/15-07/11/2015 Hospitalization History Symptomatic Hypokalemia/Nause-[facility]ia [facility] 05/13/16 Hospitalization History Stroke 05/03/2017
--- OUTSIDE RECORDS SUMMARY | 2017-08-24 10:28 | XMS REPORT ---
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 Active 910473740 Problem Chronic obstructive pulmonary disease, unspecified J44.9 Active 06486380726600573 Problem Neuropathy G62.9 Active 553617077 Problem Obstructive sleep apnea G47.33 Active 94408587 Problem Other insomnia G47.09 Active 851292684 Problem Generalized anxiety disorder F41.1 Active 89201485 Problem ADHD (attention deficit hyperactivity disorder), combined type F90.2 Active 48999451 Problem Rheumatoid arthritis M06.9 Active 89818461 Problem Hypertension I10 Active 37544089 Problem Chronic pain syndrome G89.4 Active 989163586 Problem Asthma J45.909 Active 394296614 Problem Weight gain R63.5 Active 4544949 Problem Mixed hyperlipidemia E78.2 Active 444730740 ALLERGIES Unknown Allergies SOCIAL HISTORY No smoking Hx information available PLAN OF CARE VITAL SIGNS MEDICATIONS Medication Instructions Dosage Frequency Start Date End Date Duration Status ProAir HFA 108 (90 Base) MCG/ACT INHALE TWO PUFFS BY MOUTH FOUR TIMES PER DAY NEEDED FOR SHORTNESS OF BREATH 25 Active RESULTS No Results PROCEDURES No Known procedures IMMUNIZATIONS No Known Immunizations
--- OUTSIDE RECORDS SUMMARY | 2017-08-24 10:29 | XMS REPORT ---
Author Author WILMA DIEGO [facility] Address [address] [place] [address] Care Team Providers Care Social Services Assistant Name Role Phone WILMA DIEGO Unavailable PROBLEMS Type Condition ICD9-CM Code PCN83-HH Code Onset Dates Condition Status SNOMED Code Problem Arteriosclerotic coronary artery disease I25.10 Active 99987080 Problem Hyperinsulinemia E16.1 Active 30234974 Problem Persistent depressive disorder F34.1 Active 20890594 Problem Cerebrovascular accident (CVA), unspecified mechanism I63.9 Active 104282791 Problem Other terminal make up operator (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 Active 773020997 Problem Other insomnia G47.09 Active 057799671 Problem Neuropathy G62.9 Active 502246202 Problem Obstructive sleep apnea G47.33 Active 73342034 Problem Chronic obstructive pulmonary disease, unspecified J44.9 Active 62160495865268864 Problem Generalized anxiety disorder F41.1 Active 79082780 Problem ADHD (attention deficit hyperactivity disorder), combined type F90.2 Active 47924872 Problem Asthma J45.909 Active 492548159 Problem Hypertension I10 Active 19905965 Problem Rheumatoid arthritis M06.9 Active 22983597 Problem Chronic pain syndrome G89.4 Active 135187864 Problem Weight gain R63.5 Active 2754571 Problem Mixed hyperlipidemia E78.2 Active 412322957 ALLERGIES Unknown Allergies SOCIAL HISTORY No smoking Hx information available PLAN OF CARE Activity Details Follow Up 2 Weeks Reason:BH F/U VITAL SIGNS MEDICATIONS Unknown Medications RESULTS No Results PROCEDURES Procedure Date Ordered Related Diagnosis Body Site [facility] VISIT MENTAL HEALTH ESTAB PT Nov 16, 2016 Psychotherapy, patient &/family, 45 minutes, established patient Nov 16, 2016 IMMUNIZATIONS No Known Immunizations
--- OUTSIDE RECORDS SUMMARY | 2017-08-24 10:29 | XMS REPORT ---
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 Active 035368436 Problem Other insomnia G47.09 Active 843898311 Problem Neuropathy G62.9 Active 122966628 Problem Obstructive sleep apnea G47.33 Active 24025124 Problem Chronic obstructive pulmonary disease, unspecified J44.9 Active 70516476770186068 Problem Generalized anxiety disorder F41.1 Active 89017375 Problem ADHD (attention deficit hyperactivity disorder), combined type F90.2 Active 17143896 Problem Asthma J45.909 Active 278519385 Problem Hypertension I10 Active 22753578 Problem Rheumatoid arthritis M06.9 Active 11624487 Problem Chronic pain syndrome G89.4 Active 714742817 Problem Weight gain R63.5 Active 7394391 Problem Mixed hyperlipidemia E78.2 Active 991574531 ALLERGIES No Information SOCIAL HISTORY Never Assessed PLAN OF CARE Activity Details Follow Up 1- 2 Weeks Reason:F/U PT VITAL SIGNS MEDICATIONS Unknown Medications RESULTS No Results PROCEDURES Procedure Date Ordered Result Body Site THERAPEUTIC EXERCISES Nov 16, 2016 PT EVAL MOD COMPLEX 30 MIN Nov 16, 2016 IMMUNIZATIONS No Known Immunizations MEDICAL (GENERAL) HISTORY Type Description Date Medical History Cardiovascular lvoihglb-BGV-Mfttrfnl, 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 Mendoza Medical History Stress test 03/07/13-Dr. Kelly Dietrich normal Medical History Hypertension Medical History Asthma Medical History Gastrointestinal Disorder--IBS, GERD, Hx of fatty liver Medical History Hernia 1978 Medical History Cervical dysplasia 02/16-Pap LGSIL/[place]-mild dysplasia Medical History Hyperlipidemia Medical History Rheumatoid [...] Kidney injury 07/10/15-07/11/2015 Hospitalization History Symptomatic Hypokalemia/Nause-[facility]ia [facility] 05/13/16 Hospitalization History Stroke 05/03/2017
--- OUTSIDE RECORDS SUMMARY | 2017-08-24 10:29 | XMS REPORT ---
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 Active 032132771 Problem Other insomnia G47.09 Active 776794320 Problem Neuropathy G62.9 Active 537820484 Problem Obstructive sleep apnea G47.33 Active 17825171 Problem Chronic obstructive pulmonary disease, unspecified J44.9 Active 57162263452686316 Problem Generalized anxiety disorder F41.1 Active 01600820 Problem ADHD (attention deficit hyperactivity disorder), combined type F90.2 Active 83734274 Problem Asthma J45.909 Active 470400121 Problem Hypertension I10 Active 12037018 Problem Rheumatoid arthritis M06.9 Active 57887100 Problem Chronic pain syndrome G89.4 Active 824818152 Problem Weight gain R63.5 Active 9935928 Problem Mixed hyperlipidemia E78.2 Active 645787014 ALLERGIES No Information SOCIAL HISTORY Never Assessed PLAN OF CARE VITAL SIGNS MEDICATIONS Medication Instructions Dosage Frequency Start Date End Date Duration Status Venlafaxine HCl ER 150 MG Orally twice a day 1 capsule with food 12h 30 days Active RESULTS No Results PROCEDURES No Known procedures IMMUNIZATIONS No Known Immunizations MEDICAL (GENERAL) HISTORY Type Description Date Medical History Cardiovascular dttaooqe-VWN-Qfitjzvx, 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 Mendoza Medical History Stress test 03/07/13-Dr. Kelly Dietrich normal Medical History Hypertension Medical History Asthma Medical History Gastrointestinal Disorder--IBS, GERD, Hx of fatty liver Medical History Hernia 1978 Medical History Cervical dysplasia 02/16-Pap LGSIL/[place]-mild dysplasia Medical History Hyperlipidemia Medical History Rheumatoid [...] Kidney injury 07/10/15-07/11/2015 Hospitalization History Symptomatic Hypokalemia/Nause-[facility]ia [facility] 05/13/16 Hospitalization History Stroke 05/03/2017
--- OUTSIDE RECORDS SUMMARY | 2017-08-24 10:30 | XMS REPORT ---
Author Author WLIMA DIEGO [facility] Address [address] [place] [address] Care Team Providers Care Fiberglass Tube Molder Name Role Phone WILMA DIEGO Unavailable PROBLEMS Type Condition ICD9-CM Code HWC62-AZ Code Onset Dates Condition Status SNOMED Code Problem Arteriosclerotic coronary artery disease I25.10 Active 28414085 Problem Hyperinsulinemia E16.1 Active 74800264 Problem Persistent depressive disorder F34.1 Active 64589850 Problem Cerebrovascular accident (CVA), unspecified mechanism I63.9 Active 686602110 Problem Other adjunct faculty for medical terminology (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 Active 730026493 Problem Other insomnia G47.09 Active 855868842 Problem Neuropathy G62.9 Active 569990604 Problem Obstructive sleep apnea G47.33 Active 69902457 Problem Chronic obstructive pulmonary disease, unspecified J44.9 Active 00797818871457596 Problem Generalized anxiety disorder F41.1 Active 35548726 Problem ADHD (attention deficit hyperactivity disorder), combined type F90.2 Active 82943477 Problem Asthma J45.909 Active 876183446 Problem Hypertension I10 Active 79057551 Problem Rheumatoid arthritis M06.9 Active 59212114 Problem Chronic pain syndrome G89.4 Active 429431810 Problem Weight gain R63.5 Active 8197372 Problem Mixed hyperlipidemia E78.2 Active 770665530 ALLERGIES No Information SOCIAL HISTORY Never Assessed PLAN OF CARE Activity Details Follow Up 2 Weeks Reason:BH F/U VITAL SIGNS MEDICATIONS Unknown Medications RESULTS No Results PROCEDURES Procedure Date Ordered Result Body Site [facility] VISIT MENTAL HEALTH ESTAB PT Dec 07, 2016 Psychotherapy, patient &/family, 30 minutes, established patient Dec 07, 2016 IMMUNIZATIONS No Known Immunizations MEDICAL (GENERAL) HISTORY Type Description Date Medical History Cardiovascular xzgsotvf-QBF-Xeoecltk, 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 Mendoza Medical History Stress test 03/07/13-Dr. Kelly Lexiscan normal Medical History Hypertension Medical History Asthma Medical History Gastrointestinal Disorder--IBS, GERD, Hx of fatty liver Medical History Hernia 1978 Medical History Cervical dysplasia 02/16-Pap LGSIL/[place]-mild dysplasia Medical History Hyperlipidemia Medical History Rheumatoid [...]
--- OUTSIDE RECORDS SUMMARY | 2017-08-24 10:30 | XMS REPORT ---
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 Active 896841958 Problem Other insomnia G47.09 Active 024812854 Problem Neuropathy G62.9 Active 424707742 Problem Obstructive sleep apnea G47.33 Active 59209097 Problem Chronic obstructive pulmonary disease, unspecified J44.9 Active 18417805785889827 Problem Generalized anxiety disorder F41.1 Active 68835696 Problem ADHD (attention deficit hyperactivity disorder), combined type F90.2 Active 17432718 Problem Asthma J45.909 Active 151826071 Problem Hypertension I10 Active 62932351 Problem Rheumatoid arthritis M06.9 Active 02566387 Problem Chronic pain syndrome G89.4 Active 396872299 Problem Weight gain R63.5 Active 4023864 Problem Mixed hyperlipidemia E78.2 Active 816532783 ALLERGIES No Information SOCIAL HISTORY Never Assessed PLAN OF CARE Activity Details Follow Up 1 Week Reason:BH F/U VITAL SIGNS MEDICATIONS Unknown Medications RESULTS No Results PROCEDURES Procedure Date Ordered Result Body Site [facility] VISIT MENTAL HEALTH ESTAB PT Nov 30, 2016 Psychotherapy, patient &/family, 45 minutes, established patient Nov 30, 2016 IMMUNIZATIONS No Known Immunizations MEDICAL (GENERAL) HISTORY Type Description Date Medical History Cardiovascular xfhyinxs-LKN-Mwjvctzx, 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 Mendoza Medical History Stress test 03/07/13-Dr. Kelly Lexiscan normal Medical History Hypertension Medical History Asthma Medical History Gastrointestinal Disorder--IBS, GERD, Hx of fatty liver Medical History Hernia 1978 Medical History Cervical dysplasia 02/16-Pap LGSIL/[place]-mild dysplasia Medical History Hyperlipidemia Medical History Rheumatoid [...] Kidney injury 07/10/15-07/11/2015 Hospitalization History Symptomatic Hypokalemia/Nause-[facility]ia [facility] 05/13/16 Hospitalization History Stroke 05/03/2017
--- OUTSIDE RECORDS SUMMARY | 2017-08-24 10:31 | XMS REPORT ---
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 Active 944800667 Problem Other insomnia G47.09 Active 922378260 Problem Neuropathy G62.9 Active 663757821 Problem Obstructive sleep apnea G47.33 Active 45223900 Problem Chronic obstructive pulmonary disease, unspecified J44.9 Active 52805024165913315 Problem Generalized anxiety disorder F41.1 Active 53999301 Problem ADHD (attention deficit hyperactivity disorder), combined type F90.2 Active 67897942 Problem Asthma J45.909 Active 125024348 Problem Hypertension I10 Active 30306603 Problem Rheumatoid arthritis M06.9 Active 92402228 Problem Chronic pain syndrome G89.4 Active 533100939 Problem Weight gain R63.5 Active 4790389 Problem Mixed hyperlipidemia E78.2 Active 405059868 ALLERGIES No Information SOCIAL HISTORY Never Assessed PLAN OF CARE VITAL SIGNS MEDICATIONS Unknown Medications RESULTS No Results PROCEDURES No Known procedures IMMUNIZATIONS No Known Immunizations MEDICAL (GENERAL) HISTORY Type Description Date Medical History Cardiovascular smkficjq-LHR-Vssjbsgc, 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 Mendoza Medical History Stress test 03/07/13-Dr. Kelly Dietrich normal Medical History Hypertension Medical History Asthma Medical History Gastrointestinal Disorder--IBS, GERD, Hx of fatty liver Medical History Hernia 1979 Medical History Cervical dysplasia 02/16-Pap LGSIL/[place]-mild dysplasia Medical History Hyperlipidemia Medical History Rheumatoid [...]
--- OUTSIDE RECORDS SUMMARY | 2017-08-24 10:32 | XMS REPORT ---
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 Active 086107391 Problem Other insomnia G47.09 Active 671147533 Problem Neuropathy G62.9 Active 673293816 Problem Obstructive sleep apnea G47.33 Active 36785236 Problem Chronic obstructive pulmonary disease, unspecified J44.9 Active 55360709632124391 Problem Generalized anxiety disorder F41.1 Active 17464613 Problem ADHD (attention deficit hyperactivity disorder), combined type F90.2 Active 26360505 Problem Asthma J45.909 Active 229735263 Problem Hypertension I10 Active 08889985 Problem Rheumatoid arthritis M06.9 Active 60869119 Problem Chronic pain syndrome G89.4 Active 098035537 Problem Weight gain R63.5 Active 8132890 Problem Mixed hyperlipidemia E78.2 Active 795394258 ALLERGIES No Information SOCIAL HISTORY Never Assessed PLAN OF CARE Activity Details Follow Up 2 Weeks Reason:F/U HEP VITAL SIGNS MEDICATIONS Unknown Medications RESULTS No Results PROCEDURES Procedure Date Ordered Result Body Site THERAPEUTIC EXERCISES Nov 18, 2016 IMMUNIZATIONS No Known Immunizations MEDICAL (GENERAL) HISTORY Type Description Date Medical History Cardiovascular cqwakumy-PAI-Mitijysn, 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 Mendoza Medical History Stress test 03/07/13-Dr. Kelly Dietrich normal Medical History Hypertension Medical History Asthma Medical History Gastrointestinal Disorder--IBS, GERD, Hx of fatty liver Medical History Hernia 1979 Medical History Cervical dysplasia 02/16-Pap LGSIL/[place]-mild dysplasia Medical History Hyperlipidemia Medical History Rheumatoid [...] Kidney injury 07/10/15-07/11/2015 Hospitalization History Symptomatic Hypokalemia/Nause-[facility]ia [facility] 05/13/16 Hospitalization History Stroke 05/03/2017
--- OUTSIDE RECORDS SUMMARY | 2017-08-24 10:33 | XMS REPORT ---
Author Author IAN ASH [facility] Address [address] [place] [address] Care Team Providers Care Oracle Consultant Name Role Phone MIHIR IAN Unavailable PROBLEMS Type Condition ICD9-CM Code [id number] Code Onset Dates Condition Status SNOMED Code Problem Arteriosclerotic coronary artery disease I25.10 Active 71136230 Problem Hyperinsulinemia E16.1 Active 37443178 Problem Persistent depressive disorder F34.1 Active 76611541 Problem Cerebrovascular accident (CVA), unspecified mechanism I63.9 Active 866218152 Problem Other foam molder (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 Active 432905186 Problem Other insomnia G47.09 Active 910042981 Problem Neuropathy G62.9 Active 110745113 Problem Obstructive sleep apnea G47.33 Active 63648362 Problem Chronic obstructive pulmonary disease, unspecified J44.9 Active 51856949949961406 Problem Generalized anxiety disorder F41.1 Active 36421658 Problem ADHD (attention deficit hyperactivity disorder), combined type F90.2 Active 84528136 Problem Asthma J45.909 Active 131737157 Problem Hypertension I10 Active 48242146 Problem Rheumatoid arthritis M06.9 Active 60993845 Problem Chronic pain syndrome G89.4 Active 131280512 Problem Weight gain R63.5 Active 3705604 Problem Mixed hyperlipidemia E78.2 Active 603476734 ALLERGIES No Information SOCIAL HISTORY Never Assessed PLAN OF CARE Activity Details Follow Up 1 Week Reason:F/U Left shoulder pain VITAL SIGNS MEDICATIONS Unknown Medications RESULTS No Results PROCEDURES Procedure Date Ordered Result Body Site THERAPEUTIC EXERCISES Dec 07, 2016 IMMUNIZATIONS No Known Immunizations MEDICAL (GENERAL) HISTORY Type Description Date Medical History Cardiovascular qjvbtshx-ZNN-Mujzjmxq, 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 Mendoza Medical History Stress test 03/07/13-Dr. Kelly Dietrich normal Medical History Hypertension Medical History Asthma Medical History Gastrointestinal Disorder--IBS, GERD, Hx of fatty liver Medical History Hernia 1979 Medical History Cervical dysplasia 02/16-Pap LGSIL/[place]-mild dysplasia Medical History Hyperlipidemia Medical History Rheumatoid [...] Kidney injury 07/10/15-07/11/2015 Hospitalization History Symptomatic Hypokalemia/Nause-Via [facility] 05/13/16 Hospitalization History Stroke 05/03/2017
[2017-08-24] MEDS ORDERED: ALTEPLASE 100 MG/VIAL (ACTIVASE) IV ONE (11:00)
--- NOTE | 2017-08-24 14:48 | Pulmonary Consultation ---
History of Present Illness History of Present Illness Date of Consultation 08/24/17 14:42 Time Seen by Provider: 14:43 Date of Admission History of Present Illness 62yo with hx of CVA 04/26 and did receive TPA pt presented to ED via EMS secondary to stroke like symptoms. Onset was around 8AM. Pt was walking and leg suddenly became very weak on the left side. Her speech became slurred. PT was given TPA in the ED after discussing with [facility] neurology. Allergies and Home Medications Allergies Coded Allergies: Iodinated Contrast- Oral and IV Dye (Verified Allergy, Intermediate, ) doxycycline (Unverified Allergy, Intermediate, FACIAL SWELLING, 03/29/17) fluticasone furoate (Verified Allergy, Intermediate, N/V, 03/29/17) paroxetine (Verified Allergy, Intermediate, 03/29/17) vilanterol (Verified Allergy, Intermediate, N/V, 03/29/17) methylprednisolone (Unverified Allergy, Mild, flushing and skin burning and eye itching, 03/29/17) codeine (Verified Allergy, Unknown, HIVES, 03/29/17) hydrocodone (Unverified Adverse Reaction, Intermediate, DYSPNEA, HIVES, ) oxybutynin (Verified Adverse Reaction, Mild, sores in mouth, 03/29/17) Uncoded Allergies: PAPER TAPE (Allergy, Unknown, BLISTERS/SORES, 07/10/15) Home Medications Albuterol Sulfate 8.5 Gm Hfa.aer.ad, 1-2 PUFF INH Q6H PRN for SHORTNESS OF BREATH, (Reported) Albuterol Sulfate 2.5 Mg/3 Ml Vial.neb, 2.5 MG NEB Q4H PRN for SHORTNESS OF BREATH, (Reported) Aspirin 325 Mg Tablet, 325 MG PO DAILY for 30 Days Prescribed by: RENÉ TRINIDAD on 05/10/17 1354 Atorvastatin Calcium 80 Mg Tablet, 80 MG PO HS for 30 Days Prescribed by: RENÉ TRINIDAD on 05/10/17 1354 Cyclobenzaprine HCl 10 Mg Tablet, 10 MG PO BID PRN for PAIN, (Reported) Dulaglutide 1.5 Mg/0.5 Ml Pen.injctr, 1.5 MG SQ Sa, (Reported) Fluticasone/Salmeterol 1 Each Blst.w.dev, 1 PUFF IH BID, (Reported) Gabapentin 600 Mg Tablet, 600 MG PO TID, (Reported) Metoprolol Tartrate 25 Mg Tablet, 25 MG PO BID, (Reported) Omeprazole 40 Mg Capsule.dr, 40 MG PO DAILY, (Reported) Tofacitinib Citrate 5 Mg Tablet, 5 MG PO BID, (Reported) Tramadol HCl 50 Mg Tablet, 50-100 MG PO Q4H PRN for PAIN-MODERATE, (Reported) Venlafaxine HCl 150 Mg Cap.er.24h, 150 MG PO BID, (Reported) Past Cncsxfi-Jtyeqm-Jgonbq Hx Patient Social History Alcohol Use: Occasionally Uses Number of Drinks Today: Alcohol Beverage of Choice: Wine Recreational Drug Use: No Smoking Status: Current Everyday Smoker Type Used: Cigarettes Recent Foreign Travel: No Contact w/Someone Who Travel: No Recent Infectious Disease Expo: No Recent Hopitalizations: No Immunizations Up To Date Tetanus Booster (TDap): Unknown Date of Pneumonia Vaccine: Apr 09, 2010 Date of Influenza Vaccine: Jul 20, 2016 Seasonal Allergies Seasonal Allergies: No Surgeries History of Surgeries: Yes (port placement/REMOVED, bladder stimulator, EARS PINNED) Surgeries: Tubal Ligation Respiratory History of Respiratory Disorde: Yes (2L NC NIGHT ) Respiratory Disorders: Asthma, Sleep Apnea Currently Using CPAP: No Currently Using BIPAP: No Cardiovascular History of Cardiac Disorders: Yes Cardiac Disorders: High Cholesterol, Hypertension Neurological History of Neurological Disord: Yes Neurological Disorders: TIA 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 System Hx 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 Disorders: No Sexually Transmitted Disease: No HIV/AIDS: 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, Menopausal Genitourinary Genitourinary Disorders: Kidney Infection, Bladder Infection Gastrointestinal History of Gastrointestinal Di: Yes (Esophageal spasm) Gastrointestinal Disorders: Gastroesophageal Reflux, Chronic Constipation, Hemorrhoids, Chronic Diarrhea, Irritable Bowel Musculoskeletal History of Musculoskeletal Dis: Yes ("3 bulging disks", CHRONIC BILATERAL LEG PAIN) Musculoskeletal Disorders: Arthritis, Rheumatoid Arthritis, Chronic Back Pain Endocrine History of Endocrine Disorders: No HEENT Loss of Vision: Bilateral Hearing Impairment: Denies Cancer History of Cancer: No Psychosocial History of Psychiatric Problem: Yes Behavioral Health Disorders: Anxiety, Depression Integumentary History of Skin or Integumenta: No Blood Transfusions History of Blood Disorders: No Adverse Reaction to a Blood Tr: No (N/A) Reviewed Nursing Assessment Reviewed/Agree w Nursing PMH: Yes Family Medical History Significant Family History: Cancer Family Medial History: Dementia 19 MOTHER FH: prostate cancer son, Onset:25's - 30 Exam Exam Vital Signs Date Time Temp Pulse Resp B/P (MAP) Pulse Ox O2 Delivery O2 Flow Rate FiO2 08/24/17 13:00 73 08/24/17 12:31 74 08/24/17 11:21 73 18 95 08/24/17 09:20 99.4 77 18 111/83 98 Room Air I & O 08/25/17 07:00 Intake Total 1073.6 ml Balance 1073.6 ml Capillary Refill: Less Than 3 Seconds Gastrointestinal: non tender, soft Results Lab Laboratory Tests 08/24/17 09:33 Assessment/Plan Assessment/Plan CVA s/p TPA -Carotid dopplers -Echo cardiogram -Continue to monitor in ICU -Dysphagia screen QUINN VELÁZQUEZ DO Aug 24, 2017 14:47
[2017-08-24] MEDS ORDERED: ASPI-808 PO (15:17)
[2017-08-24] MEDS ORDERED: VENL75CA PO (15:17)
[2017-08-24] MEDS ORDERED: ONDA4TAB10 PO (15:17)
[2017-08-24] MEDS ORDERED: ROSU10TA PO (15:22)
[2017-08-24] MEDS ORDERED: RT-ALBUTEROL/IPRATROPIUM 3 ML (DUONEB) VIAL INH PRN (16:15)
--- NOTE | 2017-08-24 17:05 | Diagnostic Imaging Report ---
PROCEDURE: US Carotid Duplex Bilateral. TECHNIQUE: Multiple real-time grayscale images were obtained over the carotid arteries in various projections bilaterally. Additional duplex Doppler and color Doppler images were also obtained. INDICATION: Altered mental status and decreased level of consciousness. FINDINGS: Grayscale images demonstrate no significant atherosclerotic plaque. Color Doppler demonstrates patent common, internal and external carotid arteries on both sides. There is antegrade flow in the vertebral arteries on both sides. Peak systolic velocities in the right ICA are from 83, 42, and 49 cm/s and on the left side 63, 55, and 65 cm/s. ICA/CCA ratios are up to 1.3 on the right and 0.9 on the left. IMPRESSION: Estimated underlying stenosis is in the range of 0-25% bilaterally. Dictated by: Dictated on workstation # [id number]
[2017-08-24] MEDS: RT-ALBUTEROL/IPRATROPIUM 3 ML (DUONEB) VIAL INH SCH (20:18)
--- NOTE | 2017-08-24 21:09 | History & Physicial (CHS) ---
HPI History of Present Illness: 62 yo female brought to ER by EMS after she had an episode of acute weakness. She states this morning she was walking to her door when she suddenly nearly fell and had to hold herself up against the screen door until her friend returned with food that she had gone to get. Her friend was unable to help her move well but got her pulled backward into a nearby laundry pile. She was unable to move her left arm and leg and EMS was called. She has a history of stroke in April that she was treated for in [place] with TPA and then rehab here at [facility]. She reports she had weakness/paralysis of left arm and leg at that time as well which did improve significantly over 24 hours. When she left rehab, she was using a walker, but was able to walk without it within a week or so of going home. She does still report she had some residual weakness in her left arm and leg however. She has been taking full strength aspirin regularly and she states her atorvastatin dose was increased when she had the prior stroke , but she has had a sour stomach with it which had occurred before and last week Lori Willis changed her to rosuvastatin, since when her sour stomach has improved markedly. At this time, she is able to lift her left arm but not her leg. Her speech is clear and her face appears equal. Date seen by provider: Aug 24, 2017 Time Seen by Provider: 11:50 Attending Physician Glenn Nielsen MD PCP [facility] Consult Date of Admission Aug 24, 2017 at 11:34 am Home Medications Home Medications Reviewed patient Home Medication Reconciliation Form Allergies Coded Allergies: Iodinated Contrast- Oral and IV Dye (Verified Allergy, Intermediate, ) doxycycline (Unverified Allergy, Intermediate, FACIAL SWELLING, 03/29/17) fluticasone furoate (Verified Allergy, Intermediate, N/V, 03/29/17) paroxetine (Verified Allergy, Intermediate, 03/29/17) vilanterol (Verified Allergy, Intermediate, N/V, 03/29/17) methylprednisolone (Unverified Allergy, Mild, flushing and skin burning and eye itching, 03/29/17) codeine (Verified Allergy, Unknown, HIVES, 03/29/17) hydrocodone (Unverified Adverse Reaction, Intermediate, DYSPNEA, HIVES, ) oxybutynin (Verified Adverse Reaction, Mild, sores in mouth, 03/29/17) Uncoded Allergies: PAPER TAPE (Allergy, Unknown, BLISTERS/SORES, 07/10/15) CBT-Mhhyos-Nzjjrp Hx Patient Social History Alcohol Use: Denies Use Recreational Drug Use: No Smoking Status: Current Everyday Smoker Type Used: Cigarettes Recent Foreign Travel: No Contact w/other who traveled: No Recent Hopitalizations: No Recent Infectious Disease Expo: No Physical Abuse Screen: No Sexual Abuse: No Immunizations Up To Date Tetanus Booster (TDap): Unknown Date of Pneumonia Vaccine: Aug 18, 2017 Date of Influenza Vaccine: Aug 18, 2017 Past Medical History Past medical history 1. Rheumatoid arthritis 2. COPD 3. Morbid obesity 4. Depression, anxiety with associated agoraphobia 5. Hypertension 6. Hypercholesterolemia 7. Gastroesophageal reflux disease 8. Irritable bowel syndrome 9. Chronic urinary incontinence 10. CVA Past surgical history 1. Tonsillectomy 2. Tubal ligation 3. LEEP procedure 4. Port placement 5. Bladder stimulator placement Family Medical History Significant Family History: Cancer (prostate), Psychiatric Problems (dementia- mother) Review of Systems ([facility]C) Constitutional: No fever EENTM: No nose congestion Respiratory: No cough, No short of breath Cardiovascular: No chest pain Gastrointestinal: No abdominal pain, No constipation, No diarrhea, nausea Genitourinary: no symptoms reported Musculoskeletal: joint pain (diffuse) Skin: No rash Psychiatric/Neurological: No Symptoms Reported Reviewed Test Results Reviewed Test Results Lab Laboratory Tests Test 08/24/17 09:33 08/24/17 09:50 Range/Units White Blood Count 8.1 4.3-11.0 10^3/uL Red Blood Count 5.06 4.35-5.85 10^6/uL Hemoglobin 14.9 11.5-16.0 G/DL Hematocrit 45 35-52 % Mean Corpuscular Volume 88 80-99 FL Mean Corpuscular Hemoglobin 29 25-34 PG Mean Corpuscular Hemoglobin Concent 33 32-36 G/DL Red Cell Distribution Width 14.8 H 10.0-14.5 % Platelet Count 341 130-400 10^3/uL Mean Platelet Volume 9.3 7.4-10.4 FL Neutrophils (%) (Auto) 47 42-75 % Lymphocytes (%) (Auto) 43 12-44 % Monocytes (%) (Auto) 8 0-12 % Eosinophils (%) (Auto) 2 0-10 % Basophils (%) (Auto) 0 0-10 % Neutrophils # (Auto) 3.8 1.8-7.8 X 10^3 Lymphocytes # (Auto) 3.5 1.0-4.0 X 10^3 Monocytes # (Auto) 0.6 0.0-1.0 X 10^3 Eosinophils # (Auto) 0.1 0.0-0.3 10^3/uL Basophils # (Auto) 0.0 0.0-0.1 10^3/uL Prothrombin Time 13.1 12.2-14.7 SEC INR Comment 1.0 0.8-1.4 Activated Partial Thromboplast Time 43 H 24-35 SEC D-Dimer 0.49 0.00-0.49 UG/ML Sodium Level 137 135-145 MMOL/L Potassium Level 3.9 3.6-5.0 MMOL/L Chloride Level 104 98-107 MMOL/L Carbon Dioxide Level 23 21-32 MMOL/L Anion Gap 10 5-14 MMOL/L Blood Urea Nitrogen 7 7-18 MG/DL Creatinine 1.13 0.60-1.30 MG/DL Estimat Glomerular Filtration Rate 49 BUN/Creatinine Ratio 6 Glucose Level 87 70-105 MG/DL Lactic Acid Level 1.72 0.50-2.00 MMOL/L Calcium Level 9.5 8.5-10.1 MG/DL Total Bilirubin 0.4 0.1-1.0 MG/DL Aspartate Amino Transf (AST/SGOT) 23 5-34 U/L Alanine Aminotransferase (ALT/SGPT) 17 0-55 U/L Alkaline Phosphatase 118 40-136 U/L Troponin I < 0.30 <0.30 NG/ML Total Protein 8.3 H 6.4-8.2 GM/DL Albumin 4.0 3.2-4.5 GM/DL Urine Color YELLOW Urine Clarity CLEAR Urine pH 6 5-9 Urine Specific [place] 1.010 L 1.016-1.022 Urine Protein NEGATIVE NEGATIVE Urine Glucose (UA) NEGATIVE NEGATIVE Urine Ketones NEGATIVE NEGATIVE Urine Nitrite NEGATIVE NEGATIVE Urine Bilirubin NEGATIVE NEGATIVE Urine Urobilinogen NORMAL NORMAL MG/DL Urine Leukocyte Esterase NEGATIVE NEGATIVE Urine RBC (Auto) NEGATIVE NEGATIVE Urine RBC NONE /HPF Urine WBC NONE /HPF Urine Squamous Epithelial Cells 0-2 /HPF Urine Crystals NONE /LPF Urine Bacteria NEGATIVE /HPF Urine Casts NONE /LPF Urine Mucus NEGATIVE /LPF Urine Culture Indicated NO Radiology CT head 08/24/17: No acute process CXR 08/24/17: IMPRESSION: Question of mild infiltrate versus tissue superimposition causing increased density over the mid left lung field on this portable radiograph. Correlate clinically and with 2-view radiographs if needed. Physical Exam-([facility]) Physical Exam Vital Signs VS - Last 72 Hours, by Label 08/24/17 08/24/17 08/24/17 08/24/17 09:20 11:21 12:30 12:30 Temp 99.4 Pulse 77 73 73 Resp 18 18 17 B/P (MAP) 111/83 123/69 Pulse Ox 98 95 97 95 O2 Delivery Room Air Room Air Room Air 08/24/17 08/24/17 08/24/17 08/24/17 12:31 12:45 13:00 13:00 Pulse 74 75 73 73 Resp 23 24 B/P (MAP) 98/70 119/84 Pulse Ox 95 97 O2 Delivery Room Air Room Air 08/24/17 08/24/17 08/24/17 08/24/17 13:15 13:30 14:30 15:30 Pulse 72 70 71 80 Resp 14 24 12 28 B/P (MAP) 115/71 102/68 125/77 121/103 Pulse Ox 97 97 95 97 O2 Delivery Room Air Room Air Room Air Room Air 08/24/17 08/24/17 08/24/17 08/24/17 15:38 16:00 16:00 16:06 Pulse 75 75 75 Resp 23 23 B/P (MAP) 97/66 97/66 Pulse Ox 96 96 96 O2 Delivery Room Air Room Air Room Air 08/24/17 08/24/17 08/24/17 17:00 18:00 20:19 Pulse 71 74 Resp 18 25 B/P (MAP) 129/80 106/66 Pulse Ox 96 97 96 O2 Delivery Room Air Room Air Room Air Capillary Refill : Less Than 3 Seconds General Appearance: WD/WN, no apparent distress Eyes: Bilateral Eye PERRL, Bilateral Eye EOMI HEENT: PERRL/EOMI, pharynx normal Respiratory: lungs clear, normal breath sounds, no respiratory distress Cardiovascular: regular rate, rhythm, no edema, no murmur Gastrointestinal: normal bowel sounds, non tender, soft Extremities: no pedal edema Neurologic/Psychiatric: manager corporate 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 II-XII nml as tested, alert, normal mood/affect, No aphasia, No EOM palsy, No facial droop, other (4/5 strength in left arm, 2+/ 5 strength in left leg, sensation in left leg intact to light touch but altered per patient report "tingly", oriented to self, location and year but provided wrong month) Skin: normal color, warm/dry Clinical Quality Measures DVT/VTE Risk/Contraindication: Risk Factor Score Per Nursin RFS Level Per Nursing on Admit: 4+=Very High Copy Copies To 1: Lori Willis APRN Assessment/Plan Assessment/Plan Admission Dx Suspected CVA, s/p TPA given in ER HTN HLD Rheumatoid arthritis Depression/anxiety Elevated insulin COPD JENNIFER with nocturnal hypoxia Plan Suspected CVA, s/p TPA given in ER- improving symptoms at time of my exam, admit to ICU for post-TPA protocol, check carotid US, echocardiogram, swallow eval, PT/OT -Hold ASA for 24-48 hours HTN- with hypotension in ER, improved but still normal to low, hold metoprolol, monitor closely and maintain blood pressure less than 185/110 if it starts to rise HLD- continue rosuvastatin Rheumatoid arthritis- continue home Xeljanz, flexeril, gabapentin, holding tramadol due to interaction between flexeril and tramadol may need to adjust one or the other if requiring both Depression/anxiety- venlafaxine at home over maximum dose, will hold the extra 75 mg BID and resume 150 BID for now, although this is still above maximum for ER, may need to taper down further Elevated insulin- on dulaglutide outpatient for elevated insulin/weight management, will hold and monitor blood sugars COPD- RT MAT protocol, resume home inhaled steroid JENNIFER with nocturnal hypoxia- CPAP at night if able GLENN NIELSEN MD Aug 24, 2017 9:09 pm
[2017-08-24] MEDS ORDERED: CYCLOBENZAPRINE 10 MG (FLEXERIL) TAB PO PRN (21:30)
[2017-08-25] VITALS (18 sets, daily range): BP systolic 111–152; BP diastolic 53–92
[2017-08-25] MEDS: RT-ALBUTEROL/IPRATROPIUM 3 ML (DUONEB) VIAL INH SCH ×4 (02:46→21:53)
[2017-08-25 04:44] LABS: BASOPHILS % (AUTO) 0 % (0-10); EOSINOPHILS # (AUTO) 0.1 10^3/uL (0.0-0.3); EOSINOPHILS % (AUTO) 1 % (0-10); LYMPHOCYTES % (AUTO) 30 % (12-44); MEAN CORPUSCULAR HEMOGLOBIN 29 PG (25-34); MEAN CORPUSCULAR HGB CONC 33 G/DL (32-36); MEAN CORPUSCULAR VOLUME 90 FL (80-99); MONOCYTES # (AUTO) 0.5 X 10^3 (0.0-1.0); MONOCYTES % (AUTO) 8 % (0-12); NEUTROPHILS # (AUTO) 4.2 X 10^3 (1.8-7.8); NEUTROPHILS % (AUTO) 62 % (42-75); PLATELET COUNT 275 10^3/uL (130-400); RED BLOOD COUNT 4.28 10^6/uL (4.35-5.85); RED CELL DISTRIBUTION WIDTH 14.8 % (10.0-14.5); WHITE BLOOD COUNT 6.8 10^3/uL (4.3-11.0)
[2017-08-25 05:36] LABS: ALANINE AMINOTRANSFERASE 15 U/L (0-55); ALBUMIN 3.2 GM/DL (3.2-4.5); ANION GAP 9 MMOL/L (5-14); ASPARTATE AMINO TRANSFERASE 14 U/L (5-34); BILIRUBIN,TOTAL 0.2 MG/DL (0.1-1.0); BLOOD UREA NITROGEN 9 MG/DL (7-18); BUN/CREATININE RATIO 10; CALCIUM 8.1 MG/DL (8.5-10.1); CARBON DIOXIDE 21 MMOL/L (21-32); CHLORIDE 111 MMOL/L (98-107); GFR ESTIMATED > 60; GLUCOSE 108 MG/DL (70-105); PHOSPHORUS 2.6 MG/DL (2.3-4.7); POTASSIUM 3.8 MMOL/L (3.6-5.0); SODIUM 141 MMOL/L (135-145)
[2017-08-25] MEDS ORDERED: ONDANSETRON 4 MG (ZOFRAN) ORAL DISSOLVE TAB PO PRN (07:00)
--- NOTE | 2017-08-25 07:15 | Pulmonary Progress Note ---
Subjective Time Seen by Provider: 07:19 Subjective/Events-last exam PT is doing better. Improved left sided weakness. Exam Exam Vital Signs Date Time Temp Pulse Resp B/P (MAP) Pulse Ox O2 Delivery O2 Flow Rate FiO2 08/25/17 07:00 98 Room Air 08/25/17 06:00 73 21 144/86 96 Room Air 08/25/17 05:00 76 27 130/53 95 Room Air 08/25/17 04:00 72 27 148/90 95 Room Air 08/25/17 04:00 97.8 08/25/17 04:00 Room Air 08/25/17 03:00 75 12 142/72 97 Room Air 08/25/17 02:46 93 Room Air 08/25/17 02:00 73 21 152/92 96 Room Air 08/25/17 01:00 72 21 115/85 95 Room Air 08/25/17 01:00 72 08/25/17 00:00 68 23 131/79 90 Room Air 08/25/17 00:00 Room Air 08/24/17 23:00 82 15 124/69 96 Room Air 08/24/17 22:00 73 20 116/74 94 Room Air 08/24/17 21:00 78 19 114/69 93 Room Air 08/24/17 20:19 96 Room Air 08/24/17 20:00 96.9 08/24/17 20:00 Room Air 08/24/17 20:00 84 21 97/42 69 Room Air 08/24/17 19:00 73 19 102/79 95 Room Air 08/24/17 19:00 73 08/24/17 18:00 74 25 106/66 97 Room Air 08/24/17 17:00 71 18 129/80 96 Room Air 08/24/17 16:06 75 96 08/24/17 16:00 Room Air 08/24/17 16:00 75 23 97/66 96 Room Air 08/24/17 15:38 75 23 97/66 96 Room Air 08/24/17 15:30 80 28 121/103 97 Room Air 08/24/17 14:30 71 12 125/77 95 Room Air 08/24/17 13:30 70 24 102/68 97 Room Air 08/24/17 13:15 72 14 115/71 97 Room Air 08/24/17 13:00 73 08/24/17 13:00 73 24 119/84 97 Room Air 08/24/17 12:45 75 23 98/70 95 Room Air 08/24/17 12:31 74 08/24/17 12:30 73 17 123/69 95 Room Air 08/24/17 12:30 97 Room Air 08/24/17 11:21 73 18 95 08/24/17 09:20 99.4 77 18 111/83 98 Room Air General Appearance: No Apparent Distress, WD/WN HEENT: PERRL/EOMI, Normal ENT Inspection, Pharynx Normal Neck: Full Range of Motion, Normal Inspection Respiratory: Chest Non Tender, Lungs Clear, Normal Breath Sounds, No Accessory Muscle Use, No Respiratory Distress Cardiovascular: Regular Rate, Rhythm, No Edema, No Gallop, No Murmur Capillary Refill: Less Than 3 Seconds Gastrointestinal: normal bowel sounds, non tender, soft Extremity: Normal Capillary Refill, Normal Inspection Neurologic/Psychiatric: Alert, Oriented x3, Other (improved left sided weakness ) Skin: Normal Color, Warm/Dry Lymphatic: No Adenopathy Results Lab Laboratory Tests 08/24/17 09:33 08/25/17 04:25 Assessment/Plan Assessment/Plan CVA s/p TPA -Carotid dopplers -Echo cardiogram -Continue to monitor in ICU -Dysphagia screen -Start plavix after repeat CT shows no bleeding and after 1025 (24hrs after TPA given) -repeat CT with contrast of head -PT/OT 233 Clinical Quality Measures DVT/VTE Risk/Contraindication: Risk Factor Score Per Nursin RFS Level Per Nursing on Admit: 4+=Very High QUNIN VELÁZQUEZ DO Aug 25, 2017 07:15
[2017-08-25] MEDS ORDERED: RT-ADVAIR HFA 45/21 MCG PER PUFF IH SCH (08:00)
--- NOTE | 2017-08-25 08:41 | Physical Therapy Evaluation ---
PT Evaluation-General Medical Diagnosis Admission Date Aug 24, 2017 at 11:34 Medical Diagnosis: Weakness Onset Date: Aug 24, 2017 Therapy Diagnosis Therapy Diagnosis: L sided weakness Height/Weight Height (Feet): 5 Height (Inches): 6.00 Weight (Pounds): 213 Weight (Ounces): 7.0 Precautions Precautions/Isolations: Fall Prevention, Standard Precautions Weight Bear Status Right Lower Extremity: Right Weight Bearing/Tolerated Left Lower Extremity: Left Weight Bearing/Tolerated Referral Physician: Ruth Nielsen MD Reason for Referral: Evaluation/Treatment, Strengthening, Gait Medical History Pertinent Medical History: COPD, CVA, HTN, Rheumatoid Arthritis Additional Medical History smoker, obesity, depression, hypocholesterolemia, IBS, chronic urinary incontinence SURG- torsillectomy, tubal ligation, LEEP procedure, port procedure, bladder stimulator Reviewed History: Yes Social History Home: Apartment Current Living Status: Alone Entry Into Home: Level Entry Prior/Core FIM Prior Level of Function Functional [place] Measure 0=Not Assessed/NA 4=Minimal Assistance 1=Total Assistance 5=Supervision or Setup 2=Maximal Assistance 6=Modified [place] 3=Moderate Assistance 7=Complete [place] Bed Mobility: 7 Transfers (B,C,W/C) (FIM): 7 Gait: 7 Locomotion: 7 PT Evaluation-Current Subjective Patient is sleeping upon PT entering the room. She wakes up and reports she is doing okay today. She states she finally got her L LE to move last night. She agrees to PT eval. Pain Numeric Pain Scale: 0-No Pain Location: No Pain Reported Comment: reports numbness and tingling throughout L LE Pt/Family Goals Patient wishes to return to normal functioning at home. Objective Patient Orientation: Person, Place, Situation Attachments: Rosales Catheter, IV ROM/Strength ROM Lower Extremities WNL Strength Upper Extremities WNL Strength Lower Extremities 5/5 gross movements of R LE except hip flexion 3-/5 4/5 knee flexion/extension of L LE; hip flexion 3-/5 Integumentary/Posture Integumentary intact Bladder Incontinence: Rosales Cath Neuromuscular (Tone, Coordination, Reflexes) NT Sensory Vision: Functional Hearing: Functional Sensation Right Upper Extremit: Intact Sensation Left Upper Extremity: Intact Sensation Right Lower Extremit: Intact Sensation Left Lower Extremity: Intact Sensation Lower Extremities Reports numbness and tingling in LLE but still seems to have intact light touch sensation Transfers Functional [place] Measure 0=Not Assessed/NA 4=Minimal Assistance 1=Total Assistance 5=Supervision or Setup 2=Maximal Assistance 6=Modified [place] 3=Moderate Assistance 7=Complete [place] Transfers (B, C, W/C) (FIM): 5 Scootin Rollin Supine to/from Sit: 5 Sit to/from Stand: 5 Patient performed all bed mobility and sit to stand with SBA from PT. Gait Mode of Locomotion: Walk Anticipated Mode of Locomotion: Walk Gait (FIM): 4 Distance: 160' Gait Level of Assist: 4 Gait Persons Needed: 1 Gait Assistive Device: FWW Comments/Gait Description Patient walked with CGA from PT due to recent weakness in L extremities and reported numbness in L foot with WB. Patient distance limited by patient reporting that she is fatigued. Some unsteadiness with turning. Balance Sitting Static: Normal Sitting Dynamic: Normal Standing Static: Fair Standing Dynamic: Fair Assessment/Needs Patient reports significant improvements in strength and ROM in L extremities since the episode of weakness yesterday a.m. PT will progress gait and muscular strength and endurance activities especially addressing the affected L side. Rehab Potential: Fair PT Short Term Goals Short Term Goals Time Frame: Sep 01, 2017 Transfers (B,C,W/C) (FIM): 6 Gait (FIM): 5 Gait Distance Comment: >300' Gait Level of Assist: 5 Gait Assistive Device: FWW, Cane Single Point PT Plan Problem List Problem List: Activity Tolerance, Functional Strength, Safety, Balance, Gait, Transfer Treatment/Plan Treatment Plan: Continue Plan of Care Treatment Plan: Education, Functional Activity [place], Functional Strength, Gait , Safety, Therapeutic Exercise, Transfers Treatment Duration: Sep 01, 2017 Frequency: 6 times per week Estimated Hrs Per Day: .25 hour per day (15-30') Patient and/or Family Agrees t: Yes Safety Risks/Education Patient Education: Gait Training, Transfer Techniques, Correct Positioning, Safety Issues Teaching Recipient: Patient Teaching Methods: Demonstration, Discussion Response to Teaching: Verbalize Understanding, Return Demonstration, Reinforcement Needed Discharge Recommendations Plan Patient will perform bed mobility and transfer training, balance and endurance training, functional strengthening, stair training, gait training, and education to improve functional mobility and independence at home. Therapy D/C Recommendations: Home Independently Equpiment Recommendations-D/C: Straight Cane, Front Wheeled Walker Time/GCodes Time In: 810 Time Out: 830 Total Billed Treatment Time: 20 Total Billed Treatment 1 visit EVMod 20 min CLEMENTE BLANCO PT Aug 25, 2017 08:41
[2017-08-25] MEDS: PANTOPRAZOLE 40 MG (PROTONIX) TAB PO SCH (09:01)
[2017-08-25] MEDS: GABAPENTIN 600 MG (NEURONTIN) TAB PO SCH ×2 (09:01→20:10)
--- NOTE | 2017-08-25 09:07 | Diagnostic Imaging Report ---
INDICATION: Dyspnea. COMPARISON: 08/24/2017. FINDINGS: The vague parenchymal opacity projecting over the mid to lower left lung present on the prior exam is less well seen at this exam and may be resolving or resolved pneumonia or less conspicuous overlying soft tissue artifactual superimposition. The heart borders and diaphragms are well visualized. No effusion, pneumothorax, or volume loss. IMPRESSION: No acute finding apparent at followup. Dictated by: Dictated on workstation # [id number]
[2017-08-25] MEDS ORDERED: PATIENT MAY USE OWN MEDS, ALL MC SCH (09:30)
[2017-08-25] MEDS: XELJANZ 5 MG PO SCH ×2 (10:12→20:11)
[2017-08-25] MEDS: EFFEXOR 150 MG PO SCH ×2 (10:12→16:54)
[2017-08-25] MEDS: CLOPIDOGREL 75 MG (PLAVIX) TABLET PO SCH (11:06)
--- NOTE | 2017-08-25 13:17 | ST Dysphagia Evaluation ---
Speech Evaluation-General Medical Diagnosis Weakness Onset Date: Aug 24, 2017 Therapy Diagnosis Therapy Diagnosis: Oropharyngeal Swallow Function WNL Precautions Precautions/Isolations: Fall Prevention, Standard Precautions Referral Referring Physician: Dr. Nielsen Reason for Referral: Evaluation/Treatment Bedside Swallowing Evaluation Medical History Pertinent Medical History: COPD, CVA, HTN, Rheumatoid Arthritis Reviewed History: Yes Social History Current Living Status: Alone Speech PLF/Current-Dysphagia Prior Level of Function The patient denied prior challenges with swallowing, as well as, any signs/ symptoms of aspiration or laryngeal penetration. Subjective The patient was recently admitted to [facility] with suspicion of a CVA. The patient greeted the clinician appropriately and was agreeable to participation in the dysphagia evaluation. Cognitive Status Patient Orientation: Person, Place, Time, Situation Oral Motor Skills Dentition: Natural Current Food Consistancy: Regular, Thin Liquids Ability to Follow Directions: Excellent Oral Expression Ability: No Impairment Voice Voice Phonatory-Based Quality: Normal Voice Pitch: Normal Voice Loudness: Normal Face Facial Symmetry: Symmetrical Oral-Facial Assessment Oral-Facial Dentition: Normal Labial Seal Description: Normal Smile: Normal Puff Cheeks: Normal Lingual Protrusion: Normal Lingual ROM: Normal Lingual Strength: Normal Pharynx Velopharyngeal Move.: Normal Volitional Dry Swallow: Yes Dysphagia Evaluation Consistencies Presented: Regular, Thin Liquid, Pureed No oral impairments were noted throughout the evaluation. No pharyngeal deficits were noted throughout the evaluation. - No signs/symptoms of aspiration were demonstrated with multiple boluses of thin liquid (via straw), puree, and solid consistencies tested. The patient's vocal quality remained clear throughout the session. Dietary Recommendations: Regular Liquid Recommendations: Thin Swallowing Precautions: Small Bites and Sips, Sitting Upright 90 Degrees Dysphagia Evaluation Summary The patient displayed an oropharyngeal swallow function WNL. Speech-Plan Treatment Plan Speech Therapy Treatment Plan: Discontinue ST Evaluation, only. Frequency: 1 time per week (Evaluation, only.) Estimated Hrs Per Day: Other (Evaluation, only.) Rehab Potential: Fair Safety Risks/Education Teaching Recipient: Patient Teaching Methods: Discussion Response to Teaching: Verbalize Understanding Time Speech Therapy Time In: 10:00 Speech Therapy Time Out: 10:15 Total Billed Time: 15 Billed Treatment Time TIMUR Aleman ELIZABETH Aug 25, 2017 13:17
--- NOTE | 2017-08-25 15:53 | Occupational Therapy Eval ---
OT Evaluation-General/PLF Medical Diagnosis Admission Date Aug 24, 2017 at 11:34 Medical Diagnosis: Left sided weakness Onset Date: Aug 24, 2017 Therapy Diagnosis Therapy Diagnosis: Decreased ADL skills Height/Weight Height (Feet): 5 Height (Inches): 6.00 Weight (Pounds): 213 Weight (Ounces): 7.0 Precautions Precautions/Isolations: Fall Prevention, Standard Precautions Safety Interventions: None Weight Bear Status Weight Bearing Restriction: Weight Bearing/Tolerated Referral Physician: Ruth Nielsen MD Referral Reason: Activity Tolerance, Self Care, Evaluation/Treatment, Strengthening/ROM Medical History Pertinent Medical History: COPD, CVA, HTN, Rheumatoid Arthritis Additional Medical History Depression Current History Pt. was at home and had left sided weakness. Neighbor came over and called an ambulance. Suspected CVA. Reviewed History: Yes Social History Home: Apartment Current Living Status: Alone Entry Into Home: Level Entry Pt. has a neighbor that is very helpful. ADL-Prior Level of Function ADL PLOF Comments Pt. was independent with daily skills. Pt. drives, cooks, and cleans. DME/Equipment: Bath Chair, Grab Bars, Tall Toilet, Tub/Shower DME/Equipment Comments Pt. has access to a walker and cane if she needs it. Drive Self: Yes OT Current Status Subjective No pain reported. Pt. states that she feels everything in her left UE, but still has some "numbness and tingling" in left LE. Appearance Pt. is up in chair. Declines bathing at this time. No street clothing available and pt. has multiple lines/cords. Does however, agree to work with OT. Mental Status/Objective Patient Orientation: Person, Place, Time, Situation Attachments: Rosales Catheter, IV, Oxygen Current Hand Dominance: Right Upper Extremity ROM Right- WFL Left- Demonstrates approximately 90 degrees at shoulder in flexion. Full elbow flexion noted. Full hand movement. However, movements are delayed. Upper Extremity Coordination Left is impaired. Upper Extremity Sensation intact. Left UE sensation was impaired, but pt. states that it has resolved. Upper Extremity Strength Right UE- approximately 3+/5 throughout Left UE- 2+/5 proximally Left UE- 2+/5 distally ADL-Treatment Functional [place] Measure 0=Not Assessed/NA 4=Minimal Assistance 1=Total Assistance 5=Supervision or Setup 2=Maximal Assistance 6=Modified [place] 3=Moderate Assistance 7=Complete IndependenceIRFPAI Quality Coding Scale 6 Independent with activity with or without an assistive device 5 Patient requires set up or clean up by helper. Patient completes activity by themselves 4 Supervision or touching assist (CGA). [place] provide cues , steadying assist 3 The helper provides less than half the effort to complete the activity 2 The helper provides more than half the effort to complete the activity 1 Dependent. The helper does all the effort to complete an activity 7 Patient refused to complete or attempt activity 9 The patient did not perform the activity before the current illness or injury 88 Not attempted due to Medical conditions or safety concerns Eating (FIM): 6 Lower Body Dressing (FIM): 4 (CGA to doff/don socks. Pt. states that she had difficulty with this before however. No other street clothing available.) Transfers (B, C, W/C) (FIM): 4 (CGA/Min assist sit-stand.) Other Treatments Pt. is up in chair when OT enters room. Pt. declines bathing at this time. Friend arrives and pt. is waiting to order breakfast. States that she has no visual issues. No pain reported at this time. Pt. is issued pink therapy sponge and red theraband to increase overall strength with left UE. Pt. is educated on UE exercises and how to continue with strengthening for left UE improvement with ADL tasks. Education OT Patient Education: Modified ADL techniques, Progress toward Goal/Update tx plan, Purpose of tx/functional activities, Reviewed precautions, Rehab process, Transfer techniques Teaching Recipient: Patient Teaching Methods: Demonstration, Discussion Response to Teaching: Verbalize Understanding, Return Demonstration OT Short Term Goals Short Term Goals Time Frame: Sep 01, 2017 Eating(FIM): 6 Grooming(FIM): 5 Bathing(FIM): 5 Upper Body Dressing(FIM): 5 Lower Body Dressing(FIM): 5 Toileting(FIM): 5 Transfers (B,C,W/C) (FIM): 5 Toilet/Commode Transfer(FIM): 5 Shower Transfer(FIM): 5 Additional Short Term Goals: 1-Demonstrate ADL Tasks, 2-Verbalize Understanding , 3-ImproveStrength/[place] 1=Demonstrate adherence to instructed precautions during ADL tasks. 2=Patient will verbalize/demonstrate understanding of assistive devices/ modifications for ADL. 3=Patient will improve strength/tolerance for activity to enable patient to perform ADL's. OT Skilled Nursing Goals Skilled Nursing Goals Time Frame: Sep 08, 2017 Eating (FIM): 6 Grooming(FIM): 6 Bathing(FIM): 5 Upper Body Dressing(FIM): 6 Lower Body Dressing(FIM): 6 Toileting(FIM): 6 Transfers (B,C,W/C) (FIM): 6 Toilet/Commode Transfer(FIM): 6 Shower Transfer(FIM): 5 Additional Goals: 1-Demonstrate ADL Tasks, 2-Verbalize Understanding, 3- ImproveStrength/[place] 1=Demonstrate adherence to instructed precautions during ADL tasks. 2=Patient will verbalize/demonstrate understanding of assistive devices/ modifications for ADL. 3=Patient will improve strength/tolerance for activity to enable patient to perform ADL's. OT Education/Plan Problem List/Assessment Assessment: Decreased Activ Tolerance, Decreased UE Strength, Dependent Transfers, Impaired I ADL's, Impaired Self-Care Skills, Restricted Funct UE ROM Discharge Recommendations Plan/Recommendations: Continue POC Therapy D/C Recommendations: Acute Rehab Target Placement Pt. states that she would "be willing" to go to rehab on second floor. Treatment Plan/Plan of Care Treatment,Training & Education: Yes Patient would benefit from OT for education, treatment and training to promote independence in ADL's, mobility, safety and/or upper extremity function for ADL' s. Plan of Care: ADL Retraining, Functional Mobility, Group Exercise/Act as Ind, UE Funct Exercise/Act Treatment Duration: Sep 08, 2017 Frequency: 5 times per week Estimated Hrs Per Day: .25 hour per day Agreement: Yes Rehab Potential: Good Time/GCodes Start Time: 10:10 Stop Time: 10:30 Total Time Billed (hr/min): 20 Billed Treatment Time 1, GLADIS DELCID OT Aug 25, 2017 15:53
--- NOTE | 2017-08-25 16:11 | Progress Note (SOAP) ---
Subjective Subjective/Events-last exam Afebrile, no acute events. She is moving her left leg well now and reports she was able to walk in [place] with a walker. She denies headache, vision changes, speech difficulty. She is still feeling tingling/numbness in her left leg and the bottom of her left foot. Review of Systems Date Seen by Provider: Aug 25, 2017 Time Seen by Provider: 10:38 Objective Exam Last Set of Vital Signs Vital Signs Date Time Temp Pulse Resp B/P (MAP) Pulse Ox O2 Delivery O2 Flow Rate FiO2 08/25/17 15:28 Room Air 08/25/17 14:54 96 08/25/17 11:00 75 111/73 08/25/17 10:00 18 08/25/17 04:00 97.8 Capillary Refill : Less Than 3 Seconds I&O Intake and Output 08/26/17 00:00 Intake Total 1815 ml Output Total 625 ml Balance 1190 ml Intake Oral 815 ml IV Total 1000 ml Output Urine Total 625 ml General: Alert, No Acute Distress HEENT: PERRLA, EOMI Lungs: Clear to Auscultation, Normal Air Movement Heart: Regular Rate, No Murmurs Abdomen: Normal Bowel Sounds, Soft Neuro: Normal Speech, Cranial Nerves 3-12 NL, Other (Left hip flexor and knee extensor with 4/5 strength, remainder of upper and lower extremity strength 5/5) Psych/Mental Status: Mental Status NL Results/Procedures Lab Laboratory Tests 08/25/17 04:25: White Blood Count 6.8, Red Blood Count 4.28L, Hemoglobin 12.5, Hematocrit 38, Mean Corpuscular Volume 90, Mean Corpuscular Hemoglobin 29, Mean Corpuscular Hemoglobin Concent 33, Red Cell Distribution Width 14.8H, Platelet Count 275, Mean Platelet Volume 10.0, Neutrophils (%) (Auto) 62, Lymphocytes (%) (Auto) 30 , Monocytes (%) (Auto) 8, Eosinophils (%) (Auto) 1, Basophils (%) (Auto) 0, Neutrophils # (Auto) 4.2, Lymphocytes # (Auto) 2.0, Monocytes # (Auto) 0.5, Eosinophils # (Auto) 0.1, Basophils # (Auto) 0.0, Sodium Level 141, Potassium Level 3.8, Chloride Level 111H, Carbon Dioxide Level 21, Anion Gap 9, Blood Urea Nitrogen 9, Creatinine 0.90, Estimat Glomerular Filtration Rate > 60, BUN/ Creatinine Ratio 10, Glucose Level 108H, Calcium Level 8.1L, Phosphorus Level 2.6, Magnesium Level 2.0, Total Bilirubin 0.2, Aspartate Amino Transf (AST/SGOT ) 14, Alanine Aminotransferase (ALT/SGPT) 15, Alkaline Phosphatase 89, Total Protein 6.0L, Albumin 3.2 Microbiology 08/24/17 Blood Culture - Preliminary, Resulted No growth Radiology CT head 08/24/17: No acute process CXR 08/24/17: IMPRESSION: Question of mild infiltrate versus tissue superimposition causing increased density over the mid left lung field on this portable radiograph. Correlate clinically and with 2-view radiographs if needed. Assessment/Plan Assessment/Plan Plan Suspected CVA, s/p TPA given in ER- improving symptoms at time of my exam, admit to ICU for post-TPA protocol, check carotid US, echocardiogram, swallow eval, PT/OT -Hold ASA for 24-48 hours -Carotid US with 0-25% stenosis bilaterally, no swallow problems, walking with walker with PT -Start plavix at 24 hours, monitor neuro status closely. IRF consult HTN- with hypotension in ER, improved but still normal to low, hold metoprolol, monitor closely and maintain blood pressure less than 185/110 if it starts to rise HLD- continue rosuvastatin Rheumatoid arthritis- continue home Xeljanz, flexeril, gabapentin, holding tramadol due to interaction between flexeril and tramadol may need to adjust one or the other if requiring both Depression/anxiety- venlafaxine at home over maximum dose, will hold the extra 75 mg BID and resume 150 BID for now, although this is still above maximum for ER, may need to taper down further Elevated insulin- on dulaglutide outpatient for elevated insulin/weight management, will hold and monitor blood sugars COPD- RT MAT protocol, resume home inhaled steroid JENNIFER with nocturnal hypoxia- CPAP at night if able Clinical Quality Measures DVT/VTE Risk/Contraindication: Risk Factor Score Per Nursin RFS Level Per Nursing on Admit: 4+=Very High GLENN PEREZ MD Aug 25, 2017 4:11 pm
[2017-08-25] MEDS ORDERED: ROSUVASTATIN 5 MG (CRESTOR) TABLET PO SCH (21:00)
[2017-08-26] VITALS: BP 126/73
[2017-08-26] MEDS: RT-ALBUTEROL/IPRATROPIUM 3 ML (DUONEB) VIAL INH SCH ×2 (03:39→08:47)
[2017-08-26 04:51] LABS: BASOPHILS % (AUTO) 0 % (0-10); EOSINOPHILS # (AUTO) 0.1 10^3/uL (0.0-0.3); EOSINOPHILS % (AUTO) 1 % (0-10); LYMPHOCYTES # (AUTO) 2.6 X 10^3 (1.0-4.0); LYMPHOCYTES % (AUTO) 36 % (12-44); MEAN CORPUSCULAR HEMOGLOBIN 30 PG (25-34); MEAN CORPUSCULAR HGB CONC 33 G/DL (32-36); MEAN CORPUSCULAR VOLUME 90 FL (80-99); MEAN PLATELET VOLUME 9.5 FL (7.4-10.4); MONOCYTES # (AUTO) 0.5 X 10^3 (0.0-1.0); MONOCYTES % (AUTO) 7 % (0-12); NEUTROPHILS % (AUTO) 56 % (42-75); PLATELET COUNT 292 10^3/uL (130-400); RED BLOOD COUNT 4.37 10^6/uL (4.35-5.85); RED CELL DISTRIBUTION WIDTH 14.8 % (10.0-14.5); WHITE BLOOD COUNT 7.1 10^3/uL (4.3-11.0)
[2017-08-26 05:13] LABS: ANION GAP 11 MMOL/L (5-14); BLOOD UREA NITROGEN 8 MG/DL (7-18); BUN/CREATININE RATIO 11; CALCIUM 8.9 MG/DL (8.5-10.1); CARBON DIOXIDE 20 MMOL/L (21-32); CHLORIDE 110 MMOL/L (98-107); CREATININE SERUM 0.75 MG/DL (0.60-1.30); GFR ESTIMATED > 60; GLUCOSE 102 MG/DL (70-105); POTASSIUM 3.5 MMOL/L (3.6-5.0); SODIUM 141 MMOL/L (135-145)
[2017-08-26] MEDS: EFFEXOR 150 MG PO SCH (06:39)
[2017-08-26] MEDS: PANTOPRAZOLE 40 MG (PROTONIX) TAB PO SCH (06:39)
--- NOTE | 2017-08-26 06:45 | Pulmonary Progress Note ---
Subjective Time Seen by Provider: 06:47 Subjective/Events-last exam Pt is doing better and getting stronger. Exam Exam Vital Signs Date Time Temp Pulse Resp B/P (MAP) Pulse Ox O2 Delivery O2 Flow Rate FiO2 08/26/17 04:30 Room Air 08/26/17 03:40 98 Room Air 08/26/17 00:00 Room Air 08/26/17 00:00 96.2 89 18 126/73 95 Room Air 08/25/17 21:56 95 Room Air 08/25/17 20:16 97.3 81 16 145/91 100 Room Air 08/25/17 19:40 Room Air 08/25/17 16:00 89 11 114/60 96 Room Air 08/25/17 15:28 Room Air 08/25/17 15:00 74 17 138/80 99 Room Air 08/25/17 14:54 96 Room Air 08/25/17 14:00 79 21 137/80 96 Room Air 08/25/17 13:01 73 08/25/17 13:00 77 19 132/72 95 Room Air 08/25/17 12:00 82 28 128/85 98 Room Air 08/25/17 11:56 Room Air 08/25/17 11:00 75 111/73 98 Room Air 08/25/17 10:00 82 18 138/85 97 Room Air 08/25/17 09:00 81 12 128/80 96 Room Air 08/25/17 08:00 Room Air 08/25/17 08:00 81 18 125/75 96 Room Air 08/25/17 07:00 89 08/25/17 07:00 98 Room Air 08/25/17 07:00 73 19 143/82 96 Room Air General Appearance: No Apparent Distress, WD/WN HEENT: PERRL/EOMI, Normal ENT Inspection, Pharynx Normal Neck: Full Range of Motion, Normal Inspection Respiratory: Chest Non Tender, Lungs Clear, Normal Breath Sounds, No Accessory Muscle Use, No Respiratory Distress Cardiovascular: Regular Rate, Rhythm, No Edema, No Gallop, No Murmur Capillary Refill: Less Than 3 Seconds Gastrointestinal: normal bowel sounds, non tender, soft Extremity: Normal Capillary Refill, Normal Inspection Neurologic/Psychiatric: Alert, Oriented x3, Other (improved left sided weakness ) Skin: Normal Color, Warm/Dry Lymphatic: No Adenopathy Results Lab Laboratory Tests 08/24/17 09:33 08/25/17 04:25 08/26/17 04:05 Assessment/Plan Assessment/Plan CVA s/p TPA -Continue to monitor in ICU -Dysphagia screen -plavix -PT/OT Hypokalemia -replace Plan is for rehab transfer today. Will D/C Rosales catheter. I am going to sign off please call for any questions. I will see patient as out patient to evaluate for JENNIFER. 232 Clinical Quality Measures DVT/VTE Risk/Contraindication: Risk Factor Score Per Nursin RFS Level Per Nursing on Admit: 4+=Very High QUINN VELÁZQUEZ DO Aug 26, 2017 06:45
[2017-08-26] MEDS ORDERED: KCL 20 MEQ TAB (K-DUR) PO NR (07:06)
[2017-08-26 08:00] VITALS: BP 129/88
[2017-08-26] MEDS: CLOPIDOGREL 75 MG (PLAVIX) TABLET PO SCH (08:49)
[2017-08-26] MEDS: GABAPENTIN 600 MG (NEURONTIN) TAB PO SCH (08:49)
[2017-08-26] MEDS: XELJANZ 5 MG PO SCH (08:50)
--- NOTE | 2017-08-26 09:43 | Physical Therapy Daily Note ---
PT Daily Note-Current Subjective Patient reports she is doing better this a.m. She reports intact sensation on the medial aspect of the L LE, but she still has numbness and tingling down the lateral side of L LE. She agrees to PT. Pain Numeric Pain Scale: 3 Location: Left Location Body Site: Knee Comment: sharp pain medial knee Mental Status Patient Orientation: Normal For Age Transfers Functional [place] Measure 0=Not Assessed/NA 4=Minimal Assistance 1=Total Assistance 5=Supervision or Setup 2=Maximal Assistance 6=Modified [place] 3=Moderate Assistance 7=Complete IndependenceIRFPAI Quality Coding Scale 6 Independent with activity with or without an assistive device 5 Patient requires set up or clean up by helper. Patient completes activity by themselves 4 Supervision or touching assist (CGA). [place] provide cues , steadying assist 3 The helper provides less than half the effort to complete the activity 2 The helper provides more than half the effort to complete the activity 1 Dependent. The helper does all the effort to complete an activity 7 Patient refused to complete or attempt activity 9 The patient did not perform the activity before the current illness or injury 88 Not attempted due to Medical conditions or safety concerns Transfers (B, C, W/C) (FIM): 5 Scootin Rollin Supine to/from Sit: 5 Sit to/from Stand: 5 Patient is SBA for all bed mobility. Weight Bearing Right Lower Extremity: Right Weight Bearing/Tolerated Left Lower Extremity: Left Weight Bearing/Tolerated Gait Training Gait (FIM): 3 Distance (FIM): 5=491-97 ft Distance: 150' Gait Level of Assist: 5 Gait Persons Needed: 1 Gait Assistive Device: FWW Patient distance limited by weakness in the leg and feeling like "it is about to give out." Exercises Supine Ex: Heel Slides, Short Arc Quads, Straight leg raise Supine Reps: 10 Seated Therapy Exercises: Long arc quads Seated Reps: 20 Assessment Current Status: Good Progress Patient has good tolerance for exercise. She is currently only limited by weakness in L LE which she states she feels getting stronger since the injury. PT will continue gait and therapeutic exercise to improve strength in this area. PT Short Term Goals Short Term Goals Time Frame: Sep 01, 2017 Transfers (B,C,W/C) (FIM): 5 Gait (FIM): 5 Gait Distance Comment: >300' Gait Level of Assist: 5 Gait Assistive Device: FWW, Cane Single Point PT Plan Problem List Problem List: Activity Tolerance, Functional Strength, Safety, Balance, Gait, Transfer Treatment/Plan Treatment Plan: Continue Plan of Care Treatment Plan: Education, Functional Activity [place], Functional Strength, Gait , Safety, Therapeutic Exercise, Transfers Treatment Duration: Sep 01, 2017 Frequency: 6 times per week Estimated Hrs Per Day: .25 hour per day (15-30') Patient and/or Family Agrees t: Yes Time/GCodes Time In: 822 Time Out: 841 Total Billed Treatment Time: 19 Total Billed Treatment 1 visit FA 19 min FIDEL JARQUIN PT Aug 26, 2017 09:43
[2017-08-26 12:00] VITALS: BP 120/79
[2017-08-26] MEDS ORDERED: CLOP75TA28 PO (13:11)
--- NOTE | 2017-08-26 13:15 | Discharge Instructions ---
Discharge [facility] Discharge Medications New, Converted or Re-Newed RX: Other (not sent- going to [facility]) New Medications: Clopidogrel Bisulfate (Clopidogrel) 75 Mg Tablet 75 MG PO DAILY, #30 TAB 0 Refills Continued Medications: Albuterol Sulfate (Proair Hfa) 8.5 Gm Hfa.aer.ad 1-2 PUFF INH Q6H PRN for SHORTNESS OF BREATH, INHALER Albuterol Sulfate (Albuterol Sulfate) 2.5 Mg/3 Ml Vial.neb 2.5 MG NEB Q4H PRN for SHORTNESS OF BREATH, EA Cyclobenzaprine HCl (Cyclobenzaprine HCl) 10 Mg Tablet 10 MG PO BID PRN for MUSCLE SPASMS, TAB Dulaglutide (Trulicity) 1.5 Mg/0.5 Ml Pen.injctr 1.5 MG SQ Sa, VIAL Fluticasone/Salmeterol (Advair 100-50 Diskus) 1 Each Blst.w.dev 1 PUFF IH BID, EA Gabapentin (Gabapentin) 600 Mg Tablet 600 MG PO BID, TAB Metoprolol Tartrate (Metoprolol Tartrate) 25 Mg Tablet 25 MG PO BID, TAB Ondansetron HCl (Ondansetron HCl) 4 Mg Tablet 4 MG PO Q8H PRN for NAUSEA/VOMITING-1ST LINE Rosuvastatin Calcium (Crestor) 10 Mg Tablet 10 MG PO HS, TAB Tofacitinib Citrate (Xeljanz) 5 Mg Tablet 5 MG PO BID, TAB Tramadol HCl (Tramadol HCl) 50 Mg Tablet 50-100 MG PO Q4H PRN for PAIN-MODERATE, TAB Venlafaxine HCl (Venlafaxine HCl ER) 150 Mg Cap.er.24h 150 MG PO BID, CAP TAKES ALONG WITH VENLAFAXINE 75MG Discontinued Medications: Aspirin (Aspirin) 325 Mg Tablet 325 MG PO DAILY, TAB Omeprazole (Omeprazole) 40 Mg Capsule.dr 40 MG PO DAILY, CAP Venlafaxine HCl (Effexor Xr) 75 Mg Cap.er.24h 75 MG PO BID TAKES ALONG WITH 150MG Patient Instructions Goal/Follow Up Appt: Follow up with Lori Willis after discharge from Inpatient Rehab Patient Instructions: Stop taking omeprazole because it can decrease the effectiveness of clopidogrel- you may need to ultimately continue it but should discuss with your primary. Return to [facility]: Weakness, tingling, speech difficulty Activity & Diet Discharge Diet: Cardiac Diet Activity as Tolerated: Yes Copy Copies To 1: KIMBERLY Newman BETHANY N MD Aug 26, 2017 1:15 pm
--- NOTE | 2017-08-26 13:16 | Discharge Summary ---
Diagnosis/Chief Complaint Date of Admission Aug 24, 2017 at 11:34 am Date of Discharge Aug 26, 2017 Admission Diagnosis Admission Diagnosis Suspected CVA, s/p TPA given in ER HTN HLD Rheumatoid arthritis Depression/anxiety Elevated insulin COPD JENNIFER with nocturnal hypoxia Discharge Diagnosis Suspected CVA, s/p TPA given in ER- improving symptoms at time of my exam, admit to ICU for post-TPA protocol, check carotid US, echocardiogram, swallow eval, PT/OT -Hold ASA for 24-48 hours -Carotid US with 0-25% stenosis bilaterally, no swallow problems, walking with walker with PT -Start plavix at 24 hours, monitor neuro status closely. IRF consult- discharged to rehab HTN- with hypotension in ER, improved but still normal to low, hold metoprolol, monitor closely and maintain blood pressure less than 185/110 if it starts to rise HLD- continue rosuvastatin Rheumatoid arthritis- continue home Xeljanz, flexeril, gabapentin, tramadol- due to interaction between flexeril and tramadol may need to adjust one or the other if requiring both Depression/anxiety- venlafaxine at home over maximum dose, will hold the extra 75 mg BID and resume 150 BID for now, although this is still above maximum for ER, may need to taper down further Elevated insulin- on dulaglutide outpatient for elevated insulin/weight management, will hold and monitor blood sugars COPD- RT MAT protocol, resume home inhaled steroid JENNIFER with nocturnal hypoxia- CPAP at night if able Chief Complaint/HPI Chief Complaint/HPI 62 yo female brought to ER by EMS after she had an episode of acute weakness. She states this morning she was walking to her door when she suddenly nearly fell and had to hold herself up against the screen door until her friend returned with food that she had gone to get. Her friend was unable to help her move well but got her pulled backward into a nearby laundry pile. She was unable to move her left arm and leg and EMS was called. She has a history of stroke in April that she was treated for in [place] with TPA and then rehab here at [facility]. She reports she had weakness/paralysis of left arm and leg at that time as well which did improve significantly over 24 hours. When she left rehab, she was using a walker, but was able to walk without it within a week or so of going home. She does still report she had some residual weakness in her left arm and leg however. She has been taking full strength aspirin regularly and she states her atorvastatin dose was increased when she had the prior stroke , but she has had a sour stomach with it which had occurred before and last week Lori Willis changed her to rosuvastatin, since when her sour stomach has improved markedly. At this time, she is able to lift her left arm but not her leg. Her speech is clear and her face appears equal. Discharge Summary-Simple/Stand Consultations Discharge Physical Examination Allergies: Coded Allergies: Iodinated Contrast- Oral and IV Dye (Verified Allergy, Intermediate, ) doxycycline (Unverified Allergy, Intermediate, FACIAL SWELLING, 03/29/17) fluticasone furoate (Verified Allergy, Intermediate, N/V, 03/29/17) paroxetine (Verified Allergy, Intermediate, 03/29/17) vilanterol (Verified Allergy, Intermediate, N/V, 03/29/17) methylprednisolone (Unverified Allergy, Mild, flushing and skin burning and eye itching, 03/29/17) codeine (Verified Allergy, Unknown, HIVES, 03/29/17) hydrocodone (Unverified Adverse Reaction, Intermediate, DYSPNEA, HIVES, ) oxybutynin (Verified Adverse Reaction, Mild, sores in mouth, 03/29/17) Uncoded Allergies: PAPER TAPE (Allergy, Unknown, BLISTERS/SORES, 07/10/15) Vitals & I&Os Vital Sign - Last 12Hours Date Time Temp Pulse Resp B/P (MAP) Pulse Ox O2 Delivery O2 Flow Rate FiO2 08/26/17 08:52 Room Air 08/26/17 08:51 98 08/26/17 08:00 97.1 80 16 129/88 General Appearance: Alert, No Acute Distress Respiratory: Clear to Auscultation, Normal Air Movement Cardiovascular: Regular Rate, No Murmurs Neuro: Normal Speech Psych/Mental Status: Mental Status NL Hospital Course See final discharge diagnosis. Labs Laboratory Tests Test 08/25/17 04:25 08/26/17 04:05 Range/Units White Blood Count 6.8 7.1 4.3-11.0 10^3/uL Red Blood Count 4.28 L 4.37 4.35-5.85 10^6/uL Hemoglobin 12.5 12.9 11.5-16.0 G/DL Hematocrit 38 39 35-52 % Mean Corpuscular Volume 90 90 80-99 FL Mean Corpuscular Hemoglobin 29 30 25-34 PG Mean Corpuscular Hemoglobin Concent 33 33 32-36 G/DL Red Cell Distribution Width 14.8 H 14.8 H 10.0-14.5 % Platelet Count 275 292 130-400 10^3/uL Mean Platelet Volume 10.0 9.5 7.4-10.4 FL Neutrophils (%) (Auto) 62 56 42-75 % Lymphocytes (%) (Auto) 30 36 12-44 % Monocytes (%) (Auto) 8 7 0-12 % Eosinophils (%) (Auto) 1 1 0-10 % Basophils (%) (Auto) 0 0 0-10 % Neutrophils # (Auto) 4.2 4.0 1.8-7.8 X 10^3 Lymphocytes # (Auto) 2.0 2.6 1.0-4.0 X 10^3 Monocytes # (Auto) 0.5 0.5 0.0-1.0 X 10^3 Eosinophils # (Auto) 0.1 0.1 0.0-0.3 10^3/uL Basophils # (Auto) 0.0 0.0 0.0-0.1 10^3/uL Sodium Level 141 141 135-145 MMOL/L Potassium Level 3.8 3.5 L 3.6-5.0 MMOL/L Chloride Level 111 H 110 H 98-107 MMOL/L Carbon Dioxide Level 21 20 L 21-32 MMOL/L Anion Gap 9 11 5-14 MMOL/L Blood Urea Nitrogen 9 8 7-18 MG/DL Creatinine 0.90 0.75 0.60-1.30 MG/DL Estimat Glomerular Filtration Rate > 60 > 60 BUN/Creatinine Ratio 10 11 Glucose Level 108 H 102 70-105 MG/DL Calcium Level 8.1 L 8.9 8.5-10.1 MG/DL Phosphorus Level 2.6 2.3-4.7 MG/DL Magnesium Level 2.0 1.8-2.4 MG/DL Total Bilirubin 0.2 0.1-1.0 MG/DL Aspartate Amino Transf (AST/SGOT) 14 5-34 U/L Alanine Aminotransferase (ALT/SGPT) 15 0-55 U/L Alkaline Phosphatase 89 40-136 U/L Total Protein 6.0 L 6.4-8.2 GM/DL Albumin 3.2 3.2-4.5 GM/DL Radiology Reviewed CT head 08/24/17: No acute process CXR 08/24/17: IMPRESSION: Question of mild infiltrate versus tissue superimposition causing increased density over the mid left lung field on this portable radiograph. Correlate clinically and with 2-view radiographs if needed. Discharge Instructions to patient/family Please see electronic discharge instructions given to patient. Discharge Medications Reviewed and agree with Discharge Medication list on patient's Discharge Instruction sheet Clinical Quality Measures DVT/VTE Risk/Contraindication: Risk Factor Score Per Nursin RFS Level Per Nursing on Admit: 4+=Very High Copy Copies To 1: KIMBERLY Newman BETHANY N MD Aug 26, 2017 13:16
[2017-08-26] MEDS ORDERED: VENL75CA93 PO (14:57)
[2017-08-26] MEDS ORDERED: ASPI325T32 PO (14:57)
[2017-08-26] MEDS ORDERED: OMEP40CA36 PO (14:57)
[2017-08-28] MEDS ORDERED: NON-FORMULARY MEDICATION 1 EA EA (Dulaglutide (Trulicity) 1.5 MG) SQ SCH (21:30)
== END 2017-08-26 13:30 | DRG 62 ==
LOC: EDUNIT# 09:19 → ER 09:21 → ICU 11:34
PROVIDERS: ADMIT Family Medicine; ATTEND Family Medicine
DX: I63.50 Cerebral infarction due to unspecified occlusion or stenosis of unspecified cerebral artery (principal); G81.94 Hemiplegia, unspecified affecting left nondominant side; R47.81 Slurred speech; I69.354 Hemiplegia and hemiparesis following cerebral infarction affecting left non-dominant side; E87.6 Hypokalemia; J44.9 Chronic obstructive pulmonary disease, unspecified; G47.33 Obstructive sleep apnea (adult) (pediatric); F17.210 Nicotine dependence, cigarettes, uncomplicated; I10 Essential (primary) hypertension; R32 Unspecified urinary incontinence; E78.5 Hyperlipidemia, unspecified; K21.9 Gastro-esophageal reflux disease without esophagitis; M06.9 Rheumatoid arthritis, unspecified; M19.91 Primary osteoarthritis, unspecified site; F41.9 Anxiety disorder, unspecified; F40.00 Agoraphobia, unspecified; F32.9 Major depressive disorder, single episode, unspecified; K59.09 Other constipation; M54.9 Dorsalgia, unspecified; K58.9 Irritable bowel syndrome, unspecified; E88.81 Metabolic syndrome and other insulin resistance; E66.01 Morbid (severe) obesity due to excess calories; Z68.34 Body mass index [BMI] 34.0-34.9, adult; Z96.0 Presence of urogenital implants
CPT/HCPCS: 36415; 51702; 70450; 71010; 80048; 80053; 81000; 83605; 83735; 84100; 84484; 85025; 85379; 85610; 85730; 87040; 93005; 93041; 93306; 93880; 94640; 96365

== ENCOUNTER 2017-08-26 12:09 | Inpatient (IN) | payer MEDICARE ==
[~2017-08-26] VITALS: Ht 165.1 cm; Wt 97.5 kg
[~2017-08-26 12:09] MED LIST changes: +ONDA4TAB10 PO; +ROSU10TA PO; +VENL75CA PO
[2017-08-26] MEDS ORDERED: CLOP75TA28 PO (13:11)
[2017-08-26] MEDS ORDERED: ONDANSETRON 4 MG (ZOFRAN) ORAL DISSOLVE TAB PO PRN (14:00)
[2017-08-26] MEDS ORDERED: CYCLOBENZAPRINE 10 MG (FLEXERIL) TAB PO PRN (14:00)
[2017-08-26] MEDS ORDERED: RT-ALBUTEROL/IPRATROPIUM 3 ML (DUONEB) VIAL INH PRN ×4 (14:00→17:00)
[2017-08-26] MEDS ORDERED: PATIENT MAY USE OWN MEDS, ALL MC SCH (14:00)
[2017-08-26] MEDS ORDERED: PATIENT MAY USE OWN MED,SINGLE MED PO SCH (14:15)
[2017-08-26] MEDS ORDERED: NON-FORMULARY MEDICATION 1 EA EA IH PRN (14:15)
[2017-08-26] MEDS ORDERED: ASPI325T32 PO (14:57)
[2017-08-26] MEDS ORDERED: VENL75CA93 PO (14:57)
[2017-08-26] MEDS ORDERED: OMEP40CA36 PO (14:57)
[2017-08-26 14:58] VITALS: BP 141/87
[2017-08-26] MEDS ORDERED: RT-ALBUTEROL/IPRATROPIUM 3 ML (DUONEB) VIAL INH SCH (15:00)
--- NOTE | 2017-08-26 15:20 | Physical Therapy Evaluation ---
PT Evaluation-General Medical Diagnosis Admission Date Aug 26, 2017 at 13:31 Medical Diagnosis: CVA Onset Date: Aug 24, 2017 Therapy Diagnosis Therapy Diagnosis: weakness and abn gait Height/Weight Height (Feet): 5 Height (Inches): 5.00 Weight (Pounds): 215 Weight (Ounces): 0.0 Precautions Precautions/Isolations: Fall Prevention, Standard Precautions, Pressure Ulcer Weight Bear Status Right Lower Extremity: Right Weight Bearing/Tolerated Left Lower Extremity: Left Weight Bearing/Tolerated Referral Physician: Marco Reason for Referral: Evaluation/Treatment Medical History Pertinent Medical History: COPD, CVA, GERD, HTN, Rheumatoid Arthritis Additional Medical History CVA in April 2017, obesity, depression, anxiety, IBS, urinary incont. Current History Pt brought to ED 08/24/17 with acute weakness on the left; given TPA. Reviewed History: Yes Social History Home: Apartment Current Living Status: Alone (supportive neighbor and family) Entry Into Home: Level Entry Prior/Core FIM Prior Level of Function Functional [place] Measure 0=Not Assessed/NA 4=Minimal Assistance 1=Total Assistance 5=Supervision or Setup 2=Maximal Assistance 6=Modified [place] 3=Moderate Assistance 7=Complete [place] Bed Mobility: 7 Transfers (B,C,W/C) (FIM): 7 Gait: 7 Pt was indep at [facility] and not using an AD. She used a cane occas if her left knee was hurting. Pt able to drive. Pt reports she is able to ambulate community distances but often uses a scooter at [facility] PT Evaluation-Current Subjective Pt agreeable to PT. Acknowledges that she should be on the unit but anxious to return home. Post treatment today, pt fatigued. Pain Numeric Pain Scale: 0-No Pain Location: No Pain Reported Objective Patient Orientation: Person, Place, Time, Situation Problem Solving: Good ROM/Strength ROM Lower Extremities WFL Strenght Lower Extremities Right LE strength is grossly 4/5 Left LE strength is grossly 3/5 Integumentary/Posture Integumentary refer to nursing notes. Bowel Incontinence: No Bladder Incontinence: Yes Posture Normal and symmetrical Neuromuscular (Tone, Coordination, Reflexes) Tone is WNL left LE, coordination is slightly impaired left and reflexes are intact Right is WNL Sensory Vision: Wears Glasses Hearing: Functional Hand Dominance: Right Sensation Right Lower Extremit: Intact Sensation Left Lower Extremity: Impaired Sensation Lower Extremities Pt reports her left foot and lower lateral leg feel numb. Transfers Functional [place] Measure 0=Not Assessed/NA 4=Minimal Assistance 1=Total Assistance 5=Supervision or Setup 2=Maximal Assistance 6=Modified [place] 3=Moderate Assistance 7=Complete IndependenceIRFPAI Quality Coding Scale 6 Independent with activity with or without an assistive device 5 Patient requires set up or clean up by helper. Patient completes activity by themselves 4 Supervision or touching assist (CGA). [place] provide cues , steadying assist 3 The helper provides less than half the effort to complete the activity 2 The helper provides more than half the effort to complete the activity 1 Dependent. The helper does all the effort to complete an activity 7 Patient refused to complete or attempt activity 9 The patient did not perform the activity before the current illness or injury 88 Not attempted due to Medical conditions or safety concerns Transfers (B, C, W/C) (FIM): 4 Roll Left to Right (QC): 5 Supine to/from Sit: 5 Sit to/from Stand: 4 (CGA for safety) bed t/f WC(FIM only if WC use): 4 Sit to Lying (QC): 5 Lying to Sitting/Side of Bed(Q: 5 Sit to Stand (QC): 4 Chair/Dgp-zn-Sgsib Xfer(QC): 4 (CGA for safety) Car Transfer (QC): 4 (CGA for safety) CGA with transitional sit to from stand for safety. Gait Does the Patient Walk?: Yes Mode of Locomotion: Walk Anticipated Mode of Locomotion: Walk Gait (FIM): 4 Distance (FIM): 3=150 ft Walk 10 feet (QC): 4 Walk 50 ft with 2 Turns(QC): 4 Walk 150 ft (QC): 4 Walking 10ft/uneven surface-QC: 4 Gait Assistive Device: FWW Comments/Gait Description Slightly uncoordinated steps with the left LE but able to clear the floor and symmetrical step length. CGA with gait for safety purposes. Wheelchair Training Does the Pt Use a Wheelchair?: No Stairs Stairs (FIM): 2 #of Steps: 4 Level of Assist: 4 1 Step (curb) (QC): 4 4 Steps (QC): 4 Assistive Device: Walker 12 Steps (QC): 88 Balance Sitting Static: Good Sitting Dynamic: Good Standing Static: Fair Standing Dynamic: Fair Picking up an Object (QC): 4 Treatment Co treat with OT part of the treatment. Co treat necessary as OT addressed ADL' s/self care and PT addressed frequent functional sit to stand transfers from toilet, shower bench as as well as functional dynamic balance in standing for dressing and undressing. Co treat necessary for skilled cues and hand placement for optimal performance. Pt walked several bouts in the room with fWW with CGA and cues for safety. Pt in room after treatment with needs met. Assessment/Needs Pt presents post CVA with residual left sided weakness. She has impaired functional balance, gait, transfers and functional activity tolerance. She is a good candidate for skilled PT to address these deficits and progress her to return home alone as before. She was indep at [facility] and now in general requires min to CGA for all functional mobility. Rehab Potential: Good PT Short Term Goals Short Term Goals Time Frame: Sep 02, 2017 Transfers (B,C,W/C) (FIM): 5 Gait (FIM): 5 PT Analysis Mgr Goals Residential Goals PT Analysis Mgr Goals Time Frame: Sep 09, 2017 Transfers (B,C,W/C) (FIM): 6 Sit to Lying (QC): 6 Lying-Sitting on Side/Bed(QC): 6 Sit to Stand (QC): 6 Roll Left to Right (QC): 6 Chair/Zsg-eu-Jvnjh Xfer(QC): 6 Car Transfer (QC): 6 Does the Patient Walk: Yes Gait (FIM): 6 Gait distance (FIM): 3=150 ft Walk 10 feet (QC): 6 Walk 10ft-Uneven Surface(QC): 6 Walk 50ft with 2 Turns (QC): 6 Walk 150 ft (QC): 6 Gait Assistive Device: FWW Stairs (FIM): 5 # of Steps: 8 1 Step (curb) (QC): 5 4 Steps (QC): 5 12 Steps (QC): 0 (dash) Picking up an Object (QC): 5 PT Plan Problem List Problem List: Activity Tolerance, Functional Strength, Safety, Balance, Gait, Transfer, Bed Mobility Treatment/Plan Treatment Plan: Continue Plan of Care Treatment Plan: Bed Mobility, Education, Functional Activity [place], Functional Strength, Group Therapy, Gait, Safety, Therapeutic Exercise, Transfers Treatment Duration: Sep 09, 2017 Frequency: At least 5 of 7 days/Wk (IRF) Estimated Hrs Per Day: 1.5 hours per day Patient and/or Family Agrees t: Yes Safety Risks/Education Patient Education: Transfer Techniques, Safety Issues Teaching Recipient: Patient Teaching Methods: Demonstration, Discussion Response to Teaching: Reinforcement Needed Discharge Recommendations Therapy D/C Recommendations: Physical Therapy Home Care Time/GCodes Time In: 1340 Time Out: 1510 Total Billed Treatment Time: 90 Total Billed Treatment visit EVM 10 FA 80 Co treat wt OT [id number] JEWEL LOREDO PT Aug 26, 2017 15:20
--- NOTE | 2017-08-26 15:47 | ST Cognitive Linguistic Eval ---
Speech Evaluation-General Medical Diagnosis CVA Onset Date: Aug 24, 2017 Therapy Diagnosis Therapy Diagnosis: Cognitive Linguistic Skills WNL Precautions Precautions/Isolations: Fall Prevention, Standard Precautions, Pressure Ulcer Referral Referring Physician: Dr. Gaurav Lara Reason for Referral: Evaluation/Treatment Cognitive Evaluation Medical History Pertinent Medical History: COPD, CVA, GERD, HTN, Rheumatoid Arthritis Reviewed History: Yes Social History Current Living Status: Alone (supportive neighbor and family) Speech PLF-Current Status Prior Level of Function The patient denied prior challenges with speech, cognition, or language. Subjective The patient was recently admitted to [facility] following a suspected CVA. The patient greeted the clinician appropriately and was agreeable to participation in the cognitive evaluation. Language Eval: Auditory Comprehends Simple Yes/No Ques: Functional Indent/Objects Multiple Sahu: Functional Ident/Pics in Multiple Sahu: Functional Follows 1-Step Commands: Functional Follows Complex Directions: Functional Follows General Conversations: Functional Language Eval: Verbal Language Completes Spontaneous Greeting: Functional Produces Auto, Serial Info: Functional Imitates Simple Words/Phrases: Functional Word Finding: Mild Requests Basic Needs: Functional States Basic Personal Info: Functional Expresses Complex Ideas: Functional Cognitive Patient Orientation The patient was independently oriented to self, location, city, month, day of week and year. Objective Cognitive Domain Attention: WNL Memory: WNL Problem Solving: Functional Objective Impression The patient displayed cognitive linguistic skills grossly within normal limits and appropriate for completion of ADL's. Communication/Social Cognition Comprehension: 6 Expression: 6 Social Interaction: 6 Problem Solvin Memory: 5 Speech Patient Assess Expression of Ideas/Wants: Expression (4) Understanding Vebal Content: Understands (4) Brief Interview-Mental Status: Yes Repetition of Three Words: Three (3) Temporal Orientation: Year: Correct (3) Temporal Orientation: Month: Accurate within 5 days(2) Temporal Orientation: Day: Correct (1) Recall : Wear to say "Sock": Yes, no cue required (2) Recall : Color: Yes, no cue required (2) Recall : Bed: Yes, no cue required (2) Speech-Plan Treatment Plan Speech Therapy Treatment Plan: Discontinue ST Evaluation, only. Frequency: Modified Program (IRF) (Evaluation, only.) Estimated Hrs Per Day: Other (Evaluation, only.) Rehab Potential: Good Safety Risks/Education Teaching Recipient: Patient Teaching Methods: Discussion Response to Teaching: Verbalize Understanding Education Topics Provided: Results, Recommendations, Plan of Care Time Speech Therapy Time In: 15:18 Speech Therapy Time Out: 15:39 Total Billed Time: 21 Billed Treatment Time 1, MORAIMA WILBURN Aug 26, 2017 15:47
[2017-08-26 16:03] VITALS: BP 141/87
--- NOTE | 2017-08-26 16:52 | Occupational Therapy Eval ---
OT Evaluation-General/PLF Medical Diagnosis Admission Date Aug 26, 2017 at 13:31 Medical Diagnosis: CVA Onset Date: Aug 24, 2017 Therapy Diagnosis Therapy Diagnosis: Left sided weakness Height/Weight Height (Feet): 5 Height (Inches): 5.00 Weight (Pounds): 215 Weight (Ounces): 0.0 Precautions Precautions/Isolations: Fall Prevention, Standard Precautions, Pressure Ulcer Weight Bear Status Weight Bearing Restriction: Weight Bearing/Tolerated Referral Physician: Marco Referral Reason: Activity Tolerance, Self Care, Evaluation/Treatment Medical History Pertinent Medical History: COPD, CVA, GERD, HTN, Rheumatoid Arthritis Current History Pt. began having left sided weakness at home. Neighbor called ambulance. Reviewed History: Yes Social History Home: Apartment Current Living Status: Alone (supportive neighbor and family) Entry Into Home: Level Entry Pt. has a neighbor that is very supportive. ADL-Prior Level of Function ADL PLOF Comments Pt. was independent with daily skills. DME/Equipment: Bath Chair, Shower DME/Equipment Comments Pt. has access to walker and cane if needed. Drive Self: Yes OT Current Status Subjective No pain reported. Pt. states that her left arm is "starting to work again." Pt. states that previously, she was having PT due to left shoulder issues from an injury. She does not know how she injured her arm, other than she "moved it wrong." Appearance Pt. is alert and oriented. Agrees to work with OT. Mental Status/Objective Patient Orientation: Person, Place Current Hand Dominance: Right Upper Extremity ROM Right UE- WFL Left UE- approximately 70 degrees shoulder flexion. Movements are slow. Upper Extremity Strength Right UE- 4/5 throughout Left UE- 3+/5 throughout ADL-Treatment Functional [place] Measure 0=Not Assessed/NA 4=Minimal Assistance 1=Total Assistance 5=Supervision or Setup 2=Maximal Assistance 6=Modified [place] 3=Moderate Assistance 7=Complete IndependenceIRFPAI Quality Coding Scale 6 Independent with activity with or without an assistive device 5 Patient requires set up or clean up by helper. Patient completes activity by themselves 4 Supervision or touching assist (CGA). [place] provide cues , steadying assist 3 The helper provides less than half the effort to complete the activity 2 The helper provides more than half the effort to complete the activity 1 Dependent. The helper does all the effort to complete an activity 7 Patient refused to complete or attempt activity 9 The patient did not perform the activity before the current illness or injury 88 Not attempted due to Medical conditions or safety concerns Grooming (FIM): 5 (Pt. is able to brush hair after set up.) Bathing (FIM): 5 (Pt. is able to shower self with SBA.) Shower/Bathe Self (QC): 4 Upper Body Dressing (FIM): 5 Upper Body Dressing (QC): 4 Lower Body Dressing (FIM): 5 Lower Body Dressing (QC): 4 On/Off Footwear (QC): 4 Toileting (FIM): 5 Toileting Hygiene (QC): 5 Transfers (B, C, W/C) (FIM): 4 (CGA for ADL transfers for safety and balance.) Toilet/Commode Transfer (FIM): 4 Toilet Transfer (QC): 4 Shower Transfer (FIM): 4 Other Treatments OT/PT co-treated due to pt's fatigue level, and level of skilled care provided. OT facilitated ADL treatment, UE assessment, while PT focused on balance, gait , and LE weakness. Pt. demonstrates good balance but slow movements. Reports tingling and numbness in left foot with ambulation. No visual or swallowing issues identified. Education OT Patient Education: Correct positioning, Exercise program, Modified ADL techniques, Progress toward Goal/Update tx plan, Purpose of tx/functional activities, Reviewed precautions, Rehab process, Transfer techniques Teaching Recipient: Patient Teaching Methods: Demonstration, Discussion Response to Teaching: Verbalize Understanding, Return Demonstration OT Short Term Goals Short Term Goals Transfers (B,C,W/C) (FIM): 5 1=Demonstrate adherence to instructed precautions during ADL tasks. 2=Patient will verbalize/demonstrate understanding of assistive devices/ modifications for ADL. 3=Patient will improve strength/tolerance for activity to enable patient to perform ADL's. OT Product Safety Head Goals Product Safety Head Goals Time Frame: Sep 09, 2017 Eating (FIM): 6 Eating (QC): 6 Groomin Oral Hygiene (QC): 6 Bathing(FIM): 5 Shower/Bathe Self (QC): 5 Upper Body Dressing(FIM): 6 Upper Body Dressing (QC): 6 Lower Body Dressing(FIM): 6 Lower Body Dressing (QC): 6 On/Off Footwear (QC): 6 Toileting(FIM): 6 Toileting Hygiene (QC): 6 Transfers (B,C,W/C) (FIM): 6 Toilet/Commode Transfer(FIM): 6 Toilet/Commode Transfer (QC): 6 Shower Transfer(FIM): 5 Additional Goals: 1-Demonstrate ADL Tasks, 2-Verbalize Understanding, 3- ImproveStrength/[place] 1=Demonstrate adherence to instructed precautions during ADL tasks. 2=Patient will verbalize/demonstrate understanding of assistive devices/ modifications for ADL. 3=Patient will improve strength/tolerance for activity to enable patient to perform ADL's. OT Education/Plan Problem List/Assessment Assessment: Decreased Activ Tolerance, Decreased UE Strength, Impaired I ADL's , Impaired Self-Care Skills, Restricted Funct UE ROM Discharge Recommendations Plan/Recommendations: Continue POC Therapy D/C Recommendations: Home w/ Family Support, Occupational Therapy Home Care, Scheduled Assistance Target Placement Home with home health and support of family and friends. Treatment Plan/Plan of Care Treatment,Training & Education: Yes Patient would benefit from OT for education, treatment and training to promote independence in ADL's, mobility, safety and/or upper extremity function for ADL' s. Plan of Care: ADL Retraining, Caregiver Training, Functional Mobility, Group Exercise/Act as Ind, UE Funct Exercise/Act Treatment Duration: Sep 09, 2017 Frequency: At least 5 of 7 days/Wk (IRF) Estimated Hrs Per Day: 1.5 hours per day Agreement: Yes Rehab Potential: Good Time/GCodes Start Time: 13:30 Stop Time: 14:50 Total Time Billed (hr/min): 70 Billed Treatment Time 2661-0589 1, EVM OT eval only [id number] PT eval no charge [phone] ADL x 30minutes, FA x 30minutes co-treat. Please see above note for designated roles. GLADIS COFFMAN OT Aug 26, 2017 16:52
--- NOTE | 2017-08-26 19:11 | PM&R Post Admission Assessment ---
Post Admission Physician Asses The preadmission screen agrees with the post admission assessment that the patient is a good candidate for inpatient rehabilitation. The patient will have a comprehensive program of inpatient rehabilitation with a goal of maximizing level of functional independence prior to discharge home with family and HHC. The patient will have PT/OT ninety minutes per day, each discipline, five days a week for gait, strengthening, conditioning, balance, ADLs, any patient/family/caregiver training as necessary. Speech therapy to do cognitive assessment and treat as indicated. Rehabilitation nursing to assist with bowel, bladder, skin, wound care, medication administration, pain management. Financial Investment Manager to assist with discharge planning, community reentry. SCD's for DVT prophylaxis. She appears to be well motivated to participate in three hours of therapy a day. She should be able to tolerate three hours of therapy a day from a medical standpoint. She should benefit from the three hours of therapy a day. She has a reasonable discharge plan, reasonable discharge rehabilitation goals and a supportive family. She has various comorbidities that need to be closely monitored with medications and treatments adjusted on a daily basis as needed. These include: COPD GERD HTN Anxiety Depression RA Barriers to discharge for this patient who had been independent prior to this are for her to be modified independent to supervision for ADLs and mobility skills prior to discharge home with family and HHC, so as to lessen the burden of the caregivers. Risks for this patient include: 1. Fall 2. Fracture 3. DVT 4. Pulmonary embolism 5. Wound infection 6. Skin breakdown 7. Contractures 8. Poorly controlled pain 9. Urinary retention 10. UTI 11. Respiratory infection 12. Aspiration 13. Recurrent stroke 14. Acute exacerbation of COPD 15. Poorly controlled HTN 16. Flair of RA 17.Worsening Anxiety and depression Estimated Length of Stay: 17 days Prognosis: Rehab prognosis appears good for goal of discharge home with family and HHC modified independent to supervision for ADLs and mobility skills. CHELSI CORDOBA MD Aug 26, 2017 19:11
[2017-08-26 19:14] VITALS: BP 125/77
--- NOTE | 2017-08-26 19:49 | HISTORY AND PHYSICAL ---
DATE OF SERVICE: CHIEF COMPLAINT: Difficulty with walking. HISTORY OF PRESENT ILLNESS: The patient is a 62-year-old female who lives alone, is disabled, lives in [facility] when she had an episode of acute weakness and presented to the ED via the EMS. She was unable to move her left arm and leg and EMS was called. She was admitted to [facility] at [facility]. She had difficulty moving her leg. She has a prior history of having a stroke on the left side with negative CT, but improvement with TPA provided in [place] with rehabilitation on this unit earlier this year. Currently, she requires assistance for ADLs and mobility skills and is again referred to inpatient rehabilitation unit. The patient had a CT of the head on 08/24/2017 showing no acute process, mild periventricular and deep white matter hypodensities suggestive of chronic microvascular ischemic changes were noted. Chest x-ray on 08/25/2017 showed no acute findings. PAST MEDICAL HISTORY: Stroke, COPD, GERD, hypertension,disabled due to rheumatoid arthritis followed by [facility] in a satellite clinic. depression and anxiety PAST SURGICAL HISTORY: Noncontributory. ALLERGIES: Several and including paper tape, Paxil, Ditropan. FAMILY HISTORY: Noncontributory. SOCIAL HISTORY: She is a , disabled, lives alone in [facility], has a daughter nearby in [place], [place] and a son in [place], [place]. REVIEW OF SYSTEMS: Ten point review of systems significant for anxiety, depression and left-sided weakness.Joint pain MEDICATIONS: Plavix 75 mg p.o. daily, Protonix 40 mg p.o. daily, gabapentin 600 mg p.o. b.i.d., Crestor 10 mg p.o. at bedtime, metoprolol 25 mg p.o. b.i.d. Albuterol treatments q.6h. and q.2h. p.r.n. shortness of breath. Advair Diskus 2 puffs b.i.d. Tramadol 50 mg p.o. 4 hours p.r.n. moderate pain. Flexeril 10 mg p.o. b.i.d. p.r.n. muscle spasm. Zofran 4 mg p.o. q.8h. p.r.n. nausea, vomiting. PHYSICAL EXAMINATION: Significant for. GENERAL: A pleasant female appearing stated age, somewhat obese, sitting up in chair eating a late lunch, in no acute distress. VITAL SIGNS: She is afebrile, pulse is 91, respiration 18, blood pressure 141/87, O2 sat 97%. HEENT: Vision, speech, hearing grossly intact. No oral lesion is noted. NECK: Supple without mass. HEART: Regular rhythm. LUNGS: Clear. ABDOMEN: Soft, nontender. Bowel sounds present. EXTREMITIES: Trace edema both ankles. No calf tenderness. MUSCULOSKELETAL: The patient has functional active range of motion of all four extremities. NEUROLOGIC: Sensation to light touch is impaired in the left leg, otherwise intact. She reports of numbness in the left foot and lower lateral leg. Right lower extremity strength is grossly 4/5. Left lower extremity strength grossly 3/5. She is right hand dominant. Strength right upper limb is 4/5, left upper limb 3+/5. Cognition grossly intact. She is set up for grooming and bathing, min assist for showers, setup for upper body dressing, min assist for lower body dressing and toilet transfers. She had been independent prior to this not using any adaptive gait aid or equipment. She is reported to have some incontinence of bladder which is chronic. She is reported to be continent of bowel. IMPRESSION: 1. 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 2. Anxiety/depression, on meds. 3. COPD on respiratory treatments. 4. GERD on medication. 5. Hypertension, controlled on medication. 6. Rheumatoid arthritis on meds followed by [facility]. 7. Urinary incontinence. 8. Obesity. PLAN: The patient will have a comprehensive program of inpatient rehabilitation with goal of maximizing level of function independence prior to discharge home with family and home health care. The patient will have PT, OT 90 minutes per day each discipline five days a week for gait strengthening and conditioning, balance, ADLs, any patient family caregiver training necessary, any adaptive equipment and training necessary. Speech therapy has noted cognitive assessment found to be intact and signed off. Rehabilitation nursing to assist with bowel, bladder skin care, medication administration, pain management. financial services agent for discharge planning community reentry. Follow up with community health group Physicians as per their schedule.SCDS for dvt prophylaxis ESTIMATED LENGTH OF STAY: Two weeks. PROGNOSIS. Rehab prognosis appears good for goal of discharging home with home health care and family modified independent to supervision of her ADLs, mobility skills. DIET: Regular. CODE STATUS: Full code. Job ID: [id number] DocumentID: [id number] Dictated Date: 08/26/2017 18:51:28 Radio Announcer Date: 08/26/2017 19:48:37 Dictated By: CHELSI CORDOBA MD MTDD
[2017-08-26] MEDS: GABAPENTIN 600 MG (NEURONTIN) TAB PO SCH (20:57)
[2017-08-26] MEDS: meTOprolol TARTRATE 25 MG (LOPRESSOR) TABLET PO SCH (20:57)
[2017-08-26] MEDS: ROSUVASTATIN 5 MG (CRESTOR) TABLET PO SCH (20:57)
[2017-08-26] MEDS ORDERED: TOFACITINIB CITRATE 5 MG PO SCH (21:00)
[2017-08-26] MEDS: RT-ALBUTEROL/IPRATROPIUM 3 ML (DUONEB) VIAL INH SCH (21:51)
[2017-08-26] MEDS: RT-ADVAIR HFA 45/21 MCG PER PUFF IH SCH (21:52)
[2017-08-27] MEDS: RT-ALBUTEROL/IPRATROPIUM 3 ML (DUONEB) VIAL INH SCH ×4 (03:06→19:45)
[2017-08-27 05:51] VITALS: BP 150/86
[2017-08-27] MEDS: PANTOPRAZOLE 40 MG (PROTONIX) TAB PO SCH (06:13)
[2017-08-27] MEDS: GABAPENTIN 600 MG (NEURONTIN) TAB PO SCH ×2 (08:28→21:24)
[2017-08-27] MEDS: meTOprolol TARTRATE 25 MG (LOPRESSOR) TABLET PO SCH ×2 (08:28→21:24)
[2017-08-27] MEDS: CLOPIDOGREL 75 MG (PLAVIX) TABLET PO SCH (08:28)
--- NOTE | 2017-08-27 08:53 | PM & R (SOAP) Progress Note ---
Subjective Time Seen by Provider: 08:15 Subjective/Events-last exam Patient was seen in her room this AM Patient min assist for transfers Objective Exam Last Set of Vital Signs Vital Signs Date Time Temp Pulse Resp B/P (MAP) Pulse Ox O2 Delivery O2 Flow Rate FiO2 08/27/17 05:51 98.4 85 20 150/86 85 Room Air 08/26/17 16:03 21 Capillary Refill : Less Than 3 Seconds I&O Intake and Output 08/28/17 00:00 Intake Total 924 ml Balance 924 ml Intake Oral 924 ml # Voids 7 General: Alert, Oriented X3, Cooperative, No Acute Distress HEENT: Atraumatic, PERRLA, EOMI, Mucous Memb Moist/[place] Neck: Supple, No JVD Lungs: Clear to Auscultation Heart: Regular Rate Abdomen: Normal Bowel Sounds, Soft, No Tenderness Extremities: No Edema Neuro: Other (Mild left HP lower >upper limbs) Assessment/Plan Assessment Recurrent rt cva with left HP RA on meds COPD on meds HTN controlled with meds Plan Continue PT/OT [facility] CHELSI CORDOBA MD Aug 27, 2017 08:53
--- NOTE | 2017-08-27 08:59 | Individualized Plan of Care ---
Individualized Plan of Care Rehab Nursing IPOC Order Admission Date Aug 26, 2017 at 13:31 Current Orders Orders Admission-Acute Rehab Unit (08/26/17 12:11) Pt Evaluate/Treat Request (08/26/17 12:11) Request Ot Evaluate & Treat (08/26/17 12:11) Request For Cognitive Services (08/26/17 12:11) Admission Arrival Bed Request (08/26/17 13:30) General/Regular (08/26/17 Lunch) Code/Resuscitation (08/26/17 13:56) Nursing Communication (Patient (08/26/17 13:56) Sequential Compression Device 08,20 (08/26/17 13:56) Weight Bearing Status (08/26/17 13:56) (Nf) Tofacitinib Citrate (Xeljanz) (08/26/17 21:00) (Nf) Venlafaxine Hcl (Venlafaxine Hcl Er (08/26/17 17:00) Albuterol/Ipra Inhalation Soln (Duoneb I (08/26/17 14:00) Clopidogrel Tablet (Plavix Tablet) (08/27/17 09:00) Cyclobenzaprine Tablet (Flexeril Tablet) (08/26/17 14:00) Fluticasone/Salmeterol Common (Advair 45 (08/26/17 20:00) Gabapentin Capsule/Tablet (Neurontin Cap (08/26/17 21:00) Ondansetron Oral Dissolve Tab (Zofran (08/26/17 14:00) Pantoprazole Tablet (Protonix Tablet) (08/27/17 07:00) Patient May Use Own Meds, All (Patient M (08/26/17 14:00) Rosuvastatin Tablet (Crestor Tablet) (08/26/17 21:00) Consult Physician (08/26/17 13:56) Mat Protocol-Rt Rfs (08/26/17 13:56) Svn Sm Volume Nebulizer Rt-Rfs (08/26/17 13:56) Patient May Use Own Med,Single (Patient (08/26/17 14:15) Albuterol/Ipra Inhalation Soln (Duoneb I (08/26/17 15:00) Patient Visit (08/26/17 ) Speech Sound Lang Comp (08/26/17 ) Non-Formulary Medication (Non-Formulary (08/26/17 14:15) Metoprolol Tartrate (Ir) Tab (Lopressor (08/26/17 21:00) Tramadol Tablet (Ultram Tablet) (08/26/17 14:15) Albuterol/Ipra Inhalation Soln (Duoneb I (08/26/17 14:15) Request Ot Evaluate & Treat (08/26/17 14:36) Patient Visit (08/26/17 ) Functional Activities, Ea 15 (08/26/17 ) Patient Visit (08/26/17 ) Pt Eval Moderate Complexity (08/26/17 ) Functional Activities, Ea 15 (08/26/17 ) Albuterol/Ipra Inhalation Soln (Duoneb I (08/26/17 16:00) Albuterol/Ipra Inhalation Soln (Duoneb I (08/26/17 21:00) Svn Sm Volume Nebulizer Rt-Rfs (08/26/17 15:56) Svn Sm Volume Nebulizer Rt-Rfs (08/26/17 15:56) Other Nursing Orders: Monitor for urinary retention and constipation Intensity of Therapy to be met Patient to be seen: Min.3h per day/5 of 7d PT IPOC Problem List: Activity Tolerance, Functional Strength, Safety, Balance, Gait, Transfer, Bed Mobility Treatment Plan: Continue Plan of Care Bed Mobility, Education, Functional Activity [place], Functional Strength, Group Therapy, Gait, Safety, Therapeutic Exercise, Transfers Treatment Duration: Sep 09, 2017 Frequency: At least 5 of 7 days/Wk (IRF) Estimated Hrs Per Day: 1.5 hours per day OT IPOC Problems: Decreased Activ Tolerance, Decreased UE Strength, Impaired I ADL's, Impaired Self-Care Skills, Restricted Funct UE ROM OT Treatment, Training and Edu: Yes Plan of Care: ADL Retraining, Caregiver Training, Functional Mobility, Group Exercise/Act as Ind, UE Funct Exercise/Act Treatment Duration: Sep 09, 2017 Frequency: At least 5 of 7 days/Wk (IRF) Estimated Hrs Per Day: 1.[address] IPOC Speech Therapy Treatment Plan: Discontinue ST Treatment Duration: Aug 27, 2017 Frequency: Modified Program (IRF) (Evaluation, only.) Estimated Hrs Per Day: Other (Evaluation, only.) Manager Domestic/Case Mgmt Manager Domestic/Case Managemen: Discharge Planning, Patient/Family Counseling Physician IPOC Medical Issues being managed closely and that require the 24 hour availability of a physician: HTN RA COPD Medical Issues: DVT Prophylaxis, Falls Precautions, Fluid/Electrolyte/ Nutrition Balance, Infection Protection, Pain Management, Other (List) (as per above) Brief Synthesis of Preadmission Screen, Post-Admission Evaluation, and Therapy Evaluations: 62 yo disabled female due to RA who sustained a recurrent rt Cva with Left HP with a decline in Functional [place] referred to IRU for stroke rehab. Had been Independent prior to this and living alone with family nearby Medical Prognosis: good Anticipated Length of Stay: 09-09-17 Rehab Goals Modified Independent for adls and mobility skills Anticipated discharge destinat: Home with family and [facility] CHELSI CORDOBA MD Aug 27, 2017 08:58
--- NOTE | 2017-08-27 09:01 | Physical Therapy Daily Note ---
PT Daily Note-Current Subjective Pt. explains her situation at home and that her neighbor is her only real caregiver. Admits that her home is very tight and likely wont use her FWW at home. Pt states she has a CPAP at home, but has not been using it because the mask does not fit properly and requests assistance in getting her [employer] company to provide a new mask. Pain Numeric Pain Scale: 0-No Pain Comment: Pt c/o feeling like she was going to get a cramp in L hamstring. Mental Status Patient Orientation: Normal For Age Transfers Functional [place] Measure 0=Not Assessed/NA 4=Minimal Assistance 1=Total Assistance 5=Supervision or Setup 2=Maximal Assistance 6=Modified [place] 3=Moderate Assistance 7=Complete IndependenceIRFPAI Quality Coding Scale 6 Independent with activity with or without an assistive device 5 Patient requires set up or clean up by helper. Patient completes activity by themselves 4 Supervision or touching assist (CGA). [place] provide cues , steadying assist 3 The helper provides less than half the effort to complete the activity 2 The helper provides more than half the effort to complete the activity 1 Dependent. The helper does all the effort to complete an activity 7 Patient refused to complete or attempt activity 9 The patient did not perform the activity before the current illness or injury 88 Not attempted due to Medical conditions or safety concerns Transfers (B, C, W/C) (FIM): 6 Scootin Rollin Roll Left to Right (QC): 6 Supine to/from Sit: 6 Sit to/from Stand: 6 Sit to Lying (QC): 6 Sit to Stand (QC): 6 Pt described a very tall bed and was able to slide in and out of it with good arm strength. Weight Bearing Right Lower Extremity: Right Weight Bearing/Tolerated Left Lower Extremity: Left Weight Bearing/Tolerated Gait Training Does the Patient Walk?: Yes Gait (FIM): 5 Distance (FIM): 3=150 ft Distance: 175x2 Walk 10 feet (QC): 5 Walk 50 ft with 2 Turns(QC): 5 Walk 150 ft (QC): 5 Gait Level of Assist: 5 Gait Persons Needed: 1 Gait Assistive Device: FWW Pt states she probably won't use a FWW at home due to lack of room in apartment. Stair Training Stair Training: Handrails/: 2 handrails Stairs (FIM): 2 #of Steps: 8 Stairs: Pattern: Step to Level of Assist: 4 Pt was instructed in sequencing and safety. Exercises Supine Ex: Bridging, Ankle pumps, Quad Set, Glut sets, Lower trunk rotation, Heel Slides, Scooting, Straight leg raise, Hip abd/add Supine Reps: 12 NuStep Minutes: 8 NuStep Workload: 5 Treatments Pt completed supine EX. Pt then transitioned to standing using UE properly. Pt then ambulated from room to Therapy Gym and completed 8 stairs. Pt then used NuStep for 8 m and workload 5. Pt toileted and was able to handle clothing and cleaning alone. Pt then ambulated back to room to rest in bed with all needs met. Assessment Current Status: Good Progress Pt stated she did not sleep well due to sleep apnea. dry yard worker was contacted to inquire getting a new mask for CPAP. Pt still has numbness in L foot. PT Short Term Goals Short Term Goals Time Frame: Sep 02, 2017 Transfers (B,C,W/C) (FIM): 5 Gait (FIM): 5 PT Shelter Goals [place] Goals PT [place] Goals Time Frame: Sep 09, 2017 Transfers (B,C,W/C) (FIM): 6 Sit to Lying (QC): 6 Lying-Sitting on Side/Bed(QC): 6 Sit to Stand (QC): 6 Roll Left to Right (QC): 6 Chair/Eic-ev-Iwcex Xfer(QC): 6 Car Transfer (QC): 6 Does the Patient Walk: Yes Gait (FIM): 6 Gait distance (FIM): 3=150 ft Walk 10 feet (QC): 6 Walk 10ft-Uneven Surface(QC): 6 Walk 50ft with 2 Turns (QC): 6 Walk 150 ft (QC): 6 Gait Assistive Device: FWW Stairs (FIM): 5 # of Steps: 8 1 Step (curb) (QC): 5 4 Steps (QC): 5 12 Steps (QC): 0 (dash) Picking up an Object (QC): 5 PT Plan Problem List Problem List: Activity Tolerance, Functional Strength, Balance Treatment/Plan Treatment Plan: Continue Plan of Care Treatment Plan: Bed Mobility, Education, Functional Activity [place], Functional Strength, Group Therapy, Gait, Safety, Therapeutic Exercise, Transfers Treatment Duration: Sep 09, 2017 Frequency: At least 5 of 7 days/Wk (IRF) Estimated Hrs Per Day: 1.5 hours per day Patient and/or Family Agrees t: Yes Safety Risks/Education Patient Education: Gait Training, Transfer Techniques, Steps, Correct Positioning, Disease Process, Safety Issues Teaching Recipient: Patient Teaching Methods: Discussion Response to Teaching: Verbalize Understanding Time/GCodes Time In: 800 Time Out: 900 Total Billed Treatment Time: 60 Total Billed Treatment 1 visit, FA x 2 (30m), GT (15m), EX (15m) G Codes Necessary: ALEA Crane FANCY PACKER Aug 27, 2017 09:01
[2017-08-27] MEDS: RT-ADVAIR HFA 45/21 MCG PER PUFF IH SCH ×2 (09:31→19:45)
--- NOTE | 2017-08-27 10:33 | Occupational Ther Daily Note ---
OT Current Status-Daily Note Subjective Pt alert, sitting up in bed. Pt agreed to therapy. No c/o pain at this time. Nrsg and respiratory in room to give medicines and breathing treatment. Mental Status/Objective Patient Orientation: Person, Place, Time, Situation Functional [place] Measure 0=Not Assessed/NA 4=Minimal Assistance 1=Total Assistance 5=Supervision or Setup 2=Maximal Assistance 6=Modified [place] 3=Moderate Assistance 7=Complete [place] Attachments: IV ADL-Treatment Functional [place] Measure 0=Not Assessed/NA 4=Minimal Assistance 1=Total Assistance 5=Supervision or Setup 2=Maximal Assistance 6=Modified [place] 3=Moderate Assistance 7=Complete IndependenceIRFPAI Quality Coding Scale 6 Independent with activity with or without an assistive device 5 Patient requires set up or clean up by helper. Patient completes activity by themselves 4 Supervision or touching assist (CGA). [place] provide cues , steadying assist 3 The helper provides less than half the effort to complete the activity 2 The helper provides more than half the effort to complete the activity 1 Dependent. The helper does all the effort to complete an activity 7 Patient refused to complete or attempt activity 9 The patient did not perform the activity before the current illness or injury 88 Not attempted due to Medical conditions or safety concerns Grooming (FIM): 5 (Standing with FWW and supervision pt able to complete grooming.) Bathing (FIM): 5 (Supervision using shower bench, hand held shower and grabbars.) Bathing Location: L Arm, R Arm, L Upper Leg, R Upper Leg, L Lower Leg ( including foot), R Lower Leg (including foot), Chest, Abdomen, Buttocks, Perineal Area Shower/Bathe Self (QC): 4 Upper Body (FIM): 5 (GÓMEZ gave pt bag of clothing and pt was able to pull out clothing then transport to bathroom. Pt able to complete upper body dressing by self.) Upper Body Dressing (QC): 5 Lower Body Dressing (FIM): 5 (GÓMEZ gave pt bag of clothing and pt was able to pull out clothing then transport to bathroom. Pt able to complete lower body dressing with supervision when standing to hike pants over hips.) Lower Body Dressing (QC): 4 On/Off Footwear (QC): 5 Transfers (B, C, W/C) (FIM): 5 (Supervision using FWW.) Shower Transfer(FIM): 5 (Supervision using FWW, grabbar and shower bench.) After therapy, pt sitting in recliner with call light/phone in reach. All needs met in room. OT Short Term Goals Short Term Goals Transfers (B,C,W/C) (FIM): 5 1=Demonstrate adherence to instructed precautions during ADL tasks. 2=Patient will verbalize/demonstrate understanding of assistive devices/ modifications for ADL. 3=Patient will improve strength/tolerance for activity to enable patient to perform ADL's. OT Shelter Goals Instructional Assistant Goals Time Frame: Sep 09, 2017 Eating (FIM): 6 Eating (QC): 6 Groomin Oral Hygiene (QC): 6 Bathing(FIM): 5 Shower/Bathe Self (QC): 5 Upper Body Dressing(FIM): 6 Upper Body Dressing (QC): 6 Lower Body Dressing(FIM): 6 Lower Body Dressing (QC): 6 On/Off Footwear (QC): 6 Toileting(FIM): 6 Toileting Hygiene (QC): 6 Transfers (B,C,W/C) (FIM): 6 Toilet/Commode Transfer(FIM): 6 Toilet/Commode Transfer (QC): 6 Shower Transfer(FIM): 5 Additional Goals: 1-Demonstrate ADL Tasks, 2-Verbalize Understanding, 3- ImproveStrength/[place] 1=Demonstrate adherence to instructed precautions during ADL tasks. 2=Patient will verbalize/demonstrate understanding of assistive devices/ modifications for ADL. 3=Patient will improve strength/tolerance for activity to enable patient to perform ADL's. OT Education/Plan Discharge Recommendations Plan/Recommendations: Continue POC Treatment Plan/Plan of Care Patient would benefit from OT for education, treatment and training to promote independence in ADL's, mobility, safety and/or upper extremity function for ADL' s. Plan of Care: ADL Retraining, Caregiver Training, Functional Mobility, Group Exercise/Act as Ind, UE Funct Exercise/Act Treatment Duration: Sep 09, 2017 Frequency: At least 5 of 7 days/Wk (IRF) Estimated Hrs Per Day: 1.5 hours per day Agreement: Yes Rehab Potential: Good Time/GCodes Start Time: 09:00 Stop Time: 10:00 Total Time Billed (hr/min): 60 Billed Treatment Time 1 visit-ADL 4 (60 min) JEWEL MARCSO Aug 27, 2017 10:33
[2017-08-27] MEDS: NICOTINE 14 MG (NICODERM) PATCH TD SCH (12:12)
--- NOTE | 2017-08-27 14:21 | Therapy Group Daily Note ---
Therapy Daily Group Note Exercises Stretching Other/Notes Pt. attended group PT OT session. Pt. walked with SBA to from using FWW. Introductions and socialization activity with table games i.e. cars, dominoes, and puzzle assembly. Activities included dynamic sitting, core strength and endurance, memorization, sequencing,visual motor and fine motor. this pt. very social, shared and participated well in all activities. In room after with rothman at hand and up in chair for a meal. Start Time: 13:00 Stop Time: 14:00 Total Billed Treatment Time: 60 Total Billed Treatment 1,GRP ALEA CONDON FACTORY MANAGER Aug 27, 2017 14:21
--- NOTE | 2017-08-27 14:30 | Consultation (CHS) ---
HPI History of Present Illness: Transferred to inpatient rehab yesterday afternoon after acute hospitalization for suspected CVA with near resolution after TPA administration. Denies concerns , she still feels like her left leg is tingling but is working fairly well for her. Date seen by provider: Aug 27, 2017 Time Seen by Provider: 11:35 Attending Physician Gaurav Lara MD PCP France Shields DO Consult Date of Admission Aug 26, 2017 at 13:31 Home Medications Home Medications Reviewed patient Home Medication Reconciliation Form Allergies Coded Allergies: Iodinated Contrast- Oral and IV Dye (Verified Allergy, Intermediate, ) doxycycline (Unverified Allergy, Intermediate, FACIAL SWELLING, 03/29/17) fluticasone furoate (Verified Allergy, Intermediate, N/V, 03/29/17) paroxetine (Verified Allergy, Intermediate, 03/29/17) vilanterol (Verified Allergy, Intermediate, N/V, 03/29/17) methylprednisolone (Unverified Allergy, Mild, flushing and skin burning and eye itching, 03/29/17) codeine (Verified Allergy, Unknown, HIVES, 03/29/17) hydrocodone (Unverified Adverse Reaction, Intermediate, DYSPNEA, HIVES, ) oxybutynin (Verified Adverse Reaction, Mild, sores in mouth, 03/29/17) Uncoded Allergies: PAPER TAPE (Allergy, Unknown, BLISTERS/SORES, 07/10/15) QPX-Tobzmp-Avhkih Hx Patient Social History Alcohol Use: Denies Use Recreational Drug Use: No Smoking Status: Current Everyday Smoker Type Used: Cigarettes Recent Foreign Travel: No Contact w/other who traveled: No Recent Hopitalizations: Yes Recent Infectious Disease Expo: No Physical Abuse Screen: No Sexual Abuse: No Immunizations Up To Date Tetanus Booster (TDap): Unknown Date of Pneumonia Vaccine: Aug 18, 2017 Date of Influenza Vaccine: Aug 18, 2017 Past Medical History Past medical history 1. Rheumatoid arthritis 2. COPD 3. Morbid obesity 4. Depression, anxiety with associated agoraphobia 5. Hypertension 6. Hypercholesterolemia 7. Gastroesophageal reflux disease 8. Irritable bowel syndrome 9. Chronic urinary incontinence 10. CVA Past surgical history 1. Tonsillectomy 2. Tubal ligation 3. LEEP procedure 4. Port placement 5. Bladder stimulator placement Family Medical History Significant Family History: No Pertinent Family Hx, Cancer, Psychiatric Problems Family History: Dementia 19 MOTHER FH: prostate cancer son, Onset:25's - 30 Review of Systems ([facility]) Constitutional: no symptoms reported EENTM: no symptoms reported Respiratory: no symptoms reported Cardiovascular: no symptoms reported Gastrointestinal: no symptoms reported Genitourinary: no symptoms reported Musculoskeletal: muscle weakness (left leg) Skin: no symptoms reported Psychiatric/Neurological: Tingling Physical Exam-([facility]) Physical Exam Vital Signs VS - Last 72 Hours, by Label 08/26/17 08/26/17 08/26/17 08/26/17 14:24 14:58 16:03 19:14 Temp 98.0 97.3 Pulse 91 91 76 Resp 18 16 B/P (MAP) 141/87 125/77 Pulse Ox 97 97 93 O2 Delivery Room Air Room Air Room Air FiO2 21 08/26/17 08/26/17 08/26/17 08/27/17 19:15 21:51 21:52 03:06 Pulse Ox 96 96 96 O2 Delivery Room Air Room Air Room Air Room Air 08/27/17 08/27/17 08/27/17 05:51 09:29 09:29 Temp 98.4 Pulse 85 75 Resp 20 20 B/P (MAP) 150/86 Pulse Ox 85 96 97 O2 Delivery Room Air Room Air Room Air Capillary Refill : Less Than 3 Seconds General Appearance: WD/WN Respiratory: lungs clear, normal breath sounds Cardiovascular: regular rate, rhythm, no murmur Gastrointestinal: normal bowel sounds, non tender, soft Extremities: no pedal edema Neurologic/Psychiatric: normal mood/affect, No aphasia, No facial droop Skin: normal color, warm/dry Assessment/Plan Assessment/Plan Admission Dx s/p CVA and TPA administration HLD HTN Rheumatoid arthritis COPD Depression GERD Plan s/p CVA and TPA administration- much improved after TPA, now in rehab for strengthening, continue plavix, encourage smoking cessation HLD continue home rosuvastatin HTN resume home medications Rheumatoid arthritis- resume home Xeljanz, gabapentin, is also on tramadol, flexeril- continue with caution given possibility of serotonin syndrome with combination flexeril, tramadol and venlafaxine COPD resume home inhaler Depression resume home venlafaxine- decreased dose given combination of meds noted above GERD continue PPI High insulin level on dulaglutide at home for hyperinsulin/weight management, resumed Clinical Quality Measures DVT/VTE Risk/Contraindication: Risk Factor Score Per Nursin RFS Level Per Nursing on Admit: 3=High GLENN PEREZ MD Aug 27, 2017 14:30
[2017-08-27 18:35] VITALS: BP 150/88
[2017-08-27] MEDS ORDERED: VENlafaxine XR 75 MG (EFFEXOR XR) CAP PO SCH (21:00)
[2017-08-27] MEDS: ROSUVASTATIN 5 MG (CRESTOR) TABLET PO SCH (21:24)
[2017-08-28] MEDS: RT-ALBUTEROL/IPRATROPIUM 3 ML (DUONEB) VIAL INH SCH ×4 (02:17→19:57)
[2017-08-28 05:00] VITALS: BP 135/80
[2017-08-28] MEDS: PANTOPRAZOLE 40 MG (PROTONIX) TAB PO SCH (06:13)
[2017-08-28] MEDS: RT-ADVAIR HFA 45/21 MCG PER PUFF IH SCH ×2 (07:26→19:57)
[2017-08-28] MEDS: meTOprolol TARTRATE 25 MG (LOPRESSOR) TABLET PO SCH ×2 (08:40→20:23)
[2017-08-28] MEDS: GABAPENTIN 600 MG (NEURONTIN) TAB PO SCH ×2 (08:40→20:23)
[2017-08-28] MEDS: NICOTINE PATCH REMOVAL TP SCH (08:40)
[2017-08-28] MEDS: NICOTINE 14 MG (NICODERM) PATCH TD SCH (08:40)
[2017-08-28] MEDS: CLOPIDOGREL 75 MG (PLAVIX) TABLET PO SCH (08:40)
[2017-08-28] MEDS: VENlafaxine XR 75 MG (EFFEXOR XR) CAP PO SCH ×2 (09:26→20:23)
[2017-08-28] MEDS: TOFACITINIB CITRATE 5 MG PO SCH ×2 (09:27→20:23)
--- NOTE | 2017-08-28 09:28 | Physical Therapy Daily Note ---
PT Daily Note-Current Subjective Patient in recliner pre tx, agrees to PT, has pain in her right elbow but she says that is just her arthritis. Appearance Patient sitting EOB post tx with nurse call,phone, tray, all needs met. Mental Status Patient Orientation: Normal For Age Transfers Functional [place] Measure 0=Not Assessed/NA 4=Minimal Assistance 1=Total Assistance 5=Supervision or Setup 2=Maximal Assistance 6=Modified [place] 3=Moderate Assistance 7=Complete IndependenceIRFPAI Quality Coding Scale 6 Independent with activity with or without an assistive device 5 Patient requires set up or clean up by helper. Patient completes activity by themselves 4 Supervision or touching assist (CGA). [place] provide cues , steadying assist 3 The helper provides less than half the effort to complete the activity 2 The helper provides more than half the effort to complete the activity 1 Dependent. The helper does all the effort to complete an activity 7 Patient refused to complete or attempt activity 9 The patient did not perform the activity before the current illness or injury 88 Not attempted due to Medical conditions or safety concerns Transfers (B, C, W/C) (FIM): 6 Sit to/from Stand: 6 Weight Bearing Right Lower Extremity: Right Weight Bearing/Tolerated Left Lower Extremity: Left Weight Bearing/Tolerated Gait Training Gait (FIM): 5 Distance: 150'x2 Gait Level of Assist: 5 Gait Persons Needed: 1 Gait Assistive Device: FWW slow, but steady, no LOB Exercises NuStep Minutes: 15 NuStep Workload: 5 Treatments transfers, ambulation, functional strengthening Assessment Current Status: Fair Progress improving endurance and ambulation PT Short Term Goals Short Term Goals Time Frame: Sep 02, 2017 Transfers (B,C,W/C) (FIM): 5 Gait (FIM): 5 PT Logistics Vice President Goals Logistics Vice President Goals PT Correction Goals Time Frame: Sep 09, 2017 Transfers (B,C,W/C) (FIM): 6 Sit to Lying (QC): 6 Lying-Sitting on Side/Bed(QC): 6 Sit to Stand (QC): 6 Rollin Roll Left to Right (QC): 6 Chair/Iri-qk-Azilx Xfer(QC): 6 Car Transfer (QC): 6 Does the Patient Walk: Yes Gait (FIM): 6 Gait distance (FIM): 3=150 ft Walk 10 feet (QC): 6 Walk 10ft-Uneven Surface(QC): 6 Walk 50ft with 2 Turns (QC): 6 Walk 150 ft (QC): 6 Gait Assistive Device: FWW Stairs (FIM): 5 # of Steps: 8 1 Step (curb) (QC): 5 4 Steps (QC): 5 12 Steps (QC): 0 (dash) Picking up an Object (QC): 5 PT Plan Problem List Problem List: Activity Tolerance, Functional Strength, Safety, Balance, Gait, Transfer Treatment/Plan Treatment Plan: Continue Plan of Care Treatment Plan: Bed Mobility, Education, Functional Activity [place], Functional Strength, Group Therapy, Gait, Safety, Therapeutic Exercise, Transfers Treatment Duration: Sep 09, 2017 Frequency: At least 5 of 7 days/Wk (IRF) Estimated Hrs Per Day: 1.5 hours per day Patient and/or Family Agrees t: Yes Safety Risks/Education Patient Education: Gait Training, Transfer Techniques, Correct Positioning, Safety Issues Teaching Recipient: Patient Teaching Methods: Demonstration, Discussion Response to Teaching: Reinforcement Needed Time/GCodes Time In: 900 Time Out: 925 Total Billed Treatment Time: 25 Total Billed Treatment 1 visit GT 10' EX 15' CLEMENTE BLANCO PT Aug 28, 2017 09:28
[2017-08-28] MEDS ORDERED: TRULICITY SC SCH (14:00)
[2017-08-28 18:02] VITALS: BP 116/72
[2017-08-28] MEDS: ROSUVASTATIN 5 MG (CRESTOR) TABLET PO SCH (20:23)
[2017-08-29] MEDS: RT-ALBUTEROL/IPRATROPIUM 3 ML (DUONEB) VIAL INH SCH (02:44)
[2017-08-29 05:00] VITALS: BP 144/90
[2017-08-29] MEDS: PANTOPRAZOLE 40 MG (PROTONIX) TAB PO SCH (06:29)
[2017-08-29] MEDS: RT-ADVAIR HFA 45/21 MCG PER PUFF IH SCH ×2 (07:59→18:23)
[2017-08-29] MEDS: NICOTINE 14 MG (NICODERM) PATCH TD SCH (08:24)
[2017-08-29] MEDS: GABAPENTIN 600 MG (NEURONTIN) TAB PO SCH ×2 (08:24→21:15)
[2017-08-29] MEDS: CLOPIDOGREL 75 MG (PLAVIX) TABLET PO SCH (08:24)
[2017-08-29] MEDS: meTOprolol TARTRATE 25 MG (LOPRESSOR) TABLET PO SCH ×2 (08:24→21:16)
[2017-08-29] MEDS: NICOTINE PATCH REMOVAL TP SCH (08:25)
[2017-08-29] MEDS: TOFACITINIB CITRATE 5 MG PO SCH ×2 (09:17→21:16)
[2017-08-29] MEDS: VENlafaxine XR 75 MG (EFFEXOR XR) CAP PO SCH ×2 (09:22→21:24)
[2017-08-29 17:43] VITALS: BP 123/75
[2017-08-29] MEDS: MUPIROCIN 2% OINT 22 GM (BACTROBAN) TUBE TOP SCH (18:42)
[2017-08-29] MEDS: ROSUVASTATIN 5 MG (CRESTOR) TABLET PO SCH (21:15)
[2017-08-30 06:00] VITALS: BP 153/86
[2017-08-30] MEDS: NICOTINE PATCH REMOVAL TP SCH (06:27)
[2017-08-30] MEDS: NICOTINE 14 MG (NICODERM) PATCH TD SCH (06:27)
[2017-08-30] MEDS: PANTOPRAZOLE 40 MG (PROTONIX) TAB PO SCH (06:28)
[2017-08-30] MEDS: RT-ADVAIR HFA 45/21 MCG PER PUFF IH SCH ×2 (07:01→19:19)
[2017-08-30] MEDS: CLOPIDOGREL 75 MG (PLAVIX) TABLET PO SCH (08:04)
[2017-08-30] MEDS: VENlafaxine XR 75 MG (EFFEXOR XR) CAP PO SCH ×2 (08:04→20:33)
[2017-08-30] MEDS: meTOprolol TARTRATE 25 MG (LOPRESSOR) TABLET PO SCH ×2 (08:04→20:32)
[2017-08-30] MEDS: GABAPENTIN 600 MG (NEURONTIN) TAB PO SCH ×2 (08:04→20:32)
[2017-08-30] MEDS: TOFACITINIB CITRATE 5 MG PO SCH ×2 (08:05→20:34)
[2017-08-30] MEDS: MUPIROCIN 2% OINT 22 GM (BACTROBAN) TUBE TOP SCH ×2 (09:16→20:32)
--- NOTE | 2017-08-30 10:58 | Physical Therapy Daily Note ---
PT Daily Note-Current Subjective Pt. states she is having pain in left shoulder at 5/10. States it is close to time for pain meds. Agrees to rx. Pain Numeric Pain Scale: 5-Moderate Pain Location: Left Location Body Site: Shoulder Pain Description: Ache Appearance diaphoretic all over Mental Status Patient Orientation: Normal For Age Transfers Functional [place] Measure 0=Not Assessed/NA 4=Minimal Assistance 1=Total Assistance 5=Supervision or Setup 2=Maximal Assistance 6=Modified [place] 3=Moderate Assistance 7=Complete IndependenceIRFPAI Quality Coding Scale 6 Independent with activity with or without an assistive device 5 Patient requires set up or clean up by helper. Patient completes activity by themselves 4 Supervision or touching assist (CGA). [place] provide cues , steadying assist 3 The helper provides less than half the effort to complete the activity 2 The helper provides more than half the effort to complete the activity 1 Dependent. The helper does all the effort to complete an activity 7 Patient refused to complete or attempt activity 9 The patient did not perform the activity before the current illness or injury 88 Not attempted due to Medical conditions or safety concerns Transfers (B, C, W/C) (FIM): 6 Scootin Rollin Supine to/from Sit: 6 Sit to/from Stand: 6 Weight Bearing Right Lower Extremity: Right Weight Bearing/Tolerated Left Lower Extremity: Left Weight Bearing/Tolerated Gait Training Does the Patient Walk?: Yes Gait (FIM): 6 Distance (FIM): 3=150 ft (175x2) Gait Level of Assist: 6 Gait Persons Needed: 0 Gait Assistive Device: FWW fatigues , no LOB Stair Training Stair Training: Handrails/: 2 handrails Stairs (FIM): 5 #of Steps: 12 Stairs: Pattern: Step to Level of Assist: 5 Exercises Supine Ex: Bridging, Ankle pumps, Quad Set, Rolling, Glut sets, Heel Slides, Short Arc Quads, Scooting, Straight leg raise, Hip abd/add Supine Reps: 15 Standing: Hip Abduction, Hamstring curls, Heel/toe raises, Marching Standing Reps: 12 NuStep Minutes: 10 NuStep Workload: 2 Assessment Current Status: Good Progress PT Short Term Goals Short Term Goals Time Frame: Sep 02, 2017 Transfers (B,C,W/C) (FIM): 5 Gait (FIM): 5 PT Sorter/Assay Tech Goals Retirement Goals PT Retirement Goals Time Frame: Sep 09, 2017 Transfers (B,C,W/C) (FIM): 6 Sit to Lying (QC): 6 Lying-Sitting on Side/Bed(QC): 6 Sit to Stand (QC): 6 Rollin Roll Left to Right (QC): 6 Chair/Ngc-og-Ckqyg Xfer(QC): 6 Car Transfer (QC): 6 Does the Patient Walk: Yes Gait (FIM): 6 Gait distance (FIM): 3=150 ft Walk 10 feet (QC): 6 Walk 10ft-Uneven Surface(QC): 6 Walk 50ft with 2 Turns (QC): 6 Walk 150 ft (QC): 6 Gait Assistive Device: FWW Stairs (FIM): 5 # of Steps: 8 1 Step (curb) (QC): 5 4 Steps (QC): 5 12 Steps (QC): 0 (dash) Picking up an Object (QC): 5 PT Plan Treatment/Plan Treatment Plan: Continue Plan of Care Treatment Plan: Bed Mobility, Education, Functional Activity Checo, Functional Strength, Group Therapy, Gait, Safety, Therapeutic Exercise, Transfers Treatment Duration: Sep 09, 2017 Frequency: At least 5 of 7 days/Wk (IRF) Estimated Hrs Per Day: 1.5 hours per day Patient and/or Family Agrees t: Yes Safety Risks/Education Patient Education: Gait Training, Transfer Techniques, Steps Teaching Recipient: Patient Teaching Methods: Demonstration, Discussion Response to Teaching: Verbalize Understanding, Return Demonstration, Reinforcement Needed Time/GCodes Time In: 1000 Time Out: 1100 Total Billed Treatment Time: 60 Total Billed Treatment 1,EX25m,GT15m,FA20m G Codes Necessary: ALEA Crane BUSINESS PLANNING ANALYST Aug 30, 2017 10:58
--- NOTE | 2017-08-30 12:54 | Occupational Ther Daily Note ---
OT Current Status-Daily Note Subjective Pt seen in room, in bed, asleep. Reluctantly agreed to OT. Pt reported her L shoulder hurt and she really didn't want to do anything (she did not rate pain. ) She was also nauseated and requested meds. Mental Status/Objective Functional [place] Measure 0=Not Assessed/NA 4=Minimal Assistance 1=Total Assistance 5=Supervision or Setup 2=Maximal Assistance 6=Modified [place] 3=Moderate Assistance 7=Complete [place] ADL-Treatment Pt gradually was able to sit EOB, with L shoulder elevated and arm held against her body. Encouraged to relax arm in her lap, then supported it on pillow. She eventually was able to use L arm comfortably during ADLs. Pt reported that she had an old L shoulder injury but it had been rehabilitated and worked well until last night when it started to hurt. Functional [place] Measure 0=Not Assessed/NA 4=Minimal Assistance 1=Total Assistance 5=Supervision or Setup 2=Maximal Assistance 6=Modified [place] 3=Moderate Assistance 7=Complete IndependenceIRFPAI Quality Coding Scale 6 Independent with activity with or without an assistive device 5 Patient requires set up or clean up by helper. Patient completes activity by themselves 4 Supervision or touching assist (CGA). [place] provide cues , steadying assist 3 The helper provides less than half the effort to complete the activity 2 The helper provides more than half the effort to complete the activity 1 Dependent. The helper does all the effort to complete an activity 7 Patient refused to complete or attempt activity 9 The patient did not perform the activity before the current illness or injury 88 Not attempted due to Medical conditions or safety concerns Grooming (FIM): 5 (Pt stood at sink SBA to brush teeth. Brushed hair independently while seated EOB and was able to put it in a pony tail. Washed and dried hands at sink SBA, FWW) Upper Body (FIM): 5 (Pt educ modified technique for taking shirt off, which she was able to do witwhout hep. Donned shirt with setup) Lower Body Dressing (FIM): 5 (SBA standing to pull pants up, FWW) Toileting (FIM): 5 (SBA to toilet, tall toilet, grab bars, FWW. Managed clothing and hygiene) Toilet/Commode Transfer (FIM): 5 (SBA on and off tall toilet, grab bar, FWW) At end of tx, pt walked to gym but there was not enough time left to do exercises. Care transferred to PT. Education OT Patient Education: Modified ADL techniques, Purpose of tx/functional activities Teaching Recipient: Patient Teaching Methods: Demonstration, Discussion Response to Teaching: Verbalize Understanding, Return Demonstration, Reinforcement Needed OT Short Term Goals Short Term Goals Transfers (B,C,W/C) (FIM): 5 1=Demonstrate adherence to instructed precautions during ADL tasks. 2=Patient will verbalize/demonstrate understanding of assistive devices/ modifications for ADL. 3=Patient will improve strength/tolerance for activity to enable patient to perform ADL's. OT Prison Goals Prison Goals Time Frame: Sep 09, 2017 Eating (FIM): 6 Eating (QC): 6 Groomin Oral Hygiene (QC): 6 Bathing(FIM): 5 Shower/Bathe Self (QC): 5 Upper Body Dressing(FIM): 6 Upper Body Dressing (QC): 6 Lower Body Dressing(FIM): 6 Lower Body Dressing (QC): 6 On/Off Footwear (QC): 6 Toileting(FIM): 6 Toileting Hygiene (QC): 6 Transfers (B,C,W/C) (FIM): 6 Toilet/Commode Transfer(FIM): 6 Toilet/Commode Transfer (QC): 6 Shower Transfer(FIM): 5 Additional Goals: 1-Demonstrate ADL Tasks, 2-Verbalize Understanding, 3- ImproveStrength/[place] 1=Demonstrate adherence to instructed precautions during ADL tasks. 2=Patient will verbalize/demonstrate understanding of assistive devices/ modifications for ADL. 3=Patient will improve strength/tolerance for activity to enable patient to perform ADL's. OT Education/Plan Discharge Recommendations Plan/Recommendations: Continue POC Treatment Plan/Plan of Care Patient would benefit from OT for education, treatment and training to promote independence in ADL's, mobility, safety and/or upper extremity function for ADL' s. Plan of Care: ADL Retraining, Caregiver Training, Functional Mobility, Group Exercise/Act as Ind, UE Funct Exercise/Act Treatment Duration: Sep 09, 2017 Frequency: At least 5 of 7 days/Wk (IRF) Estimated Hrs Per Day: 1.5 hours per day Agreement: Yes Rehab Potential: Good Time/GCodes Start Time: 09:00 Stop Time: 10:00 Total Time Billed (hr/min): 60 Billed Treatment Time visit, 60 minutes ASHLEY BRENNER OT Aug 30, 2017 12:54
--- NOTE | 2017-08-30 13:58 | PM & R (SOAP) Progress Note ---
Subjective Time Seen by Provider: 13:00 Subjective/Events-last exam Patient was seen in her room this AM Patient Modified Independent for transfers Objective Exam Last Set of Vital Signs Vital Signs Date Time Temp Pulse Resp B/P (MAP) Pulse Ox O2 Delivery O2 Flow Rate FiO2 08/30/17 09:00 Room Air 08/30/17 07:01 93 08/30/17 06:00 98.5 79 16 153/86 08/29/17 06:11 21 Capillary Refill : Less Than 3 Seconds I&O Intake and Output 08/31/17 00:00 Intake Total 1100 ml Balance 1100 ml Intake Oral 1100 ml # Voids 2 General: Alert, Oriented X3, Cooperative, No Acute Distress HEENT: Atraumatic, PERRLA, EOMI, Mucous Memb Moist/Goss Neck: Supple, No JVD Lungs: Clear to Auscultation Heart: Regular Rate Abdomen: Normal Bowel Sounds, Soft, No Tenderness Extremities: No Edema Neuro: Other (Mild left HP lower >upper limbs) Assessment/Plan Assessment Recurrent rt cva with left HP RA on meds COPD on meds HTN controlled with meds Plan Continue PT/OT [facility] schedule-appreciate their note Team Conference 09-01-17 CHELSI CORDOBA MD Aug 30, 2017 13:58
--- NOTE | 2017-08-30 14:31 | Physical Therapy Daily Note ---
PT Daily Note-Current Subjective Pt. states she hopes to get a pass to leave the hospital for a while as her daughter is and her water has broken and she will be admitted to a hospital in [place]. Pt. agrees to Rx. Pain Numeric Pain Scale: 0-No Pain Mental Status Patient Orientation: Normal For Age Transfers Functional [place] Measure 0=Not Assessed/NA 4=Minimal Assistance 1=Total Assistance 5=Supervision or Setup 2=Maximal Assistance 6=Modified [place] 3=Moderate Assistance 7=Complete IndependenceIRFPAI Quality Coding Scale 6 Independent with activity with or without an assistive device 5 Patient requires set up or clean up by helper. Patient completes activity by themselves 4 Supervision or touching assist (CGA). [place] provide cues , steadying assist 3 The helper provides less than half the effort to complete the activity 2 The helper provides more than half the effort to complete the activity 1 Dependent. The helper does all the effort to complete an activity 7 Patient refused to complete or attempt activity 9 The patient did not perform the activity before the current illness or injury 88 Not attempted due to Medical conditions or safety concerns in out bed and chair SBA to Mod I Weight Bearing Right Lower Extremity: Right Weight Bearing/Tolerated Left Lower Extremity: Left Weight Bearing/Tolerated Gait Training gait FWW 125 ft SBA no LOB Exercises Supine Ex: Bridging, Ankle pumps, Quad Set, Glut sets, Lower trunk rotation, Heel Slides, Short Arc Quads, Scooting, Straight leg raise, Hip abd/add Supine Reps: 15 Assessment Current Status: Good Progress pt. preoccupied by her daughters situation PT Short Term Goals Short Term Goals Time Frame: Sep 02, 2017 Transfers (B,C,W/C) (FIM): 5 Gait (FIM): 5 PT Custodial Goals Custodial Goals PT [place] Selector Goals Time Frame: Sep 09, 2017 Transfers (B,C,W/C) (FIM): 6 Sit to Lying (QC): 6 Lying-Sitting on Side/Bed(QC): 6 Sit to Stand (QC): 6 Rollin Roll Left to Right (QC): 6 Chair/Ent-bc-Nhlnr Xfer(QC): 6 Car Transfer (QC): 6 Does the Patient Walk: Yes Gait (FIM): 6 Gait distance (FIM): 3=150 ft Walk 10 feet (QC): 6 Walk 10ft-Uneven Surface(QC): 6 Walk 50ft with 2 Turns (QC): 6 Walk 150 ft (QC): 6 Gait Assistive Device: FWW Stairs (FIM): 5 # of Steps: 8 1 Step (curb) (QC): 5 4 Steps (QC): 5 12 Steps (QC): 0 (dash) Picking up an Object (QC): 5 PT Plan Treatment/Plan Treatment Plan: Continue Plan of Care Treatment Plan: Bed Mobility, Education, Functional Activity [place], Functional Strength, Group Therapy, Gait, Safety, Therapeutic Exercise, Transfers Treatment Duration: Sep 09, 2017 Frequency: At least 5 of 7 days/Wk (IRF) Estimated Hrs Per Day: 1.5 hours per day Patient and/or Family Agrees t: Yes Time/GCodes Time In: 1400 Time Out: 1430 Total Billed Treatment Time: 30 Total Billed Treatment 1,EX20,FA10 G Codes Necessary: ALEA Crane MOTION PICTURE COMMENTATOR Aug 30, 2017 14:31
--- NOTE | 2017-08-30 14:41 | Occupational Ther Daily Note ---
OT Current Status-Daily Note Subjective Pt seen in room, up in bed, agreeable to OT. Pt reported no pain in L arm now. Mental Status/Objective Functional [place] Measure 0=Not Assessed/NA 4=Minimal Assistance 1=Total Assistance 5=Supervision or Setup 2=Maximal Assistance 6=Modified [place] 3=Moderate Assistance 7=Complete [place] ADL-Treatment Functional [place] Measure 0=Not Assessed/NA 4=Minimal Assistance 1=Total Assistance 5=Supervision or Setup 2=Maximal Assistance 6=Modified [place] 3=Moderate Assistance 7=Complete IndependenceIRFPAI Quality Coding Scale 6 Independent with activity with or without an assistive device 5 Patient requires set up or clean up by helper. Patient completes activity by themselves 4 Supervision or touching assist (CGA). [place] provide cues , steadying assist 3 The helper provides less than half the effort to complete the activity 2 The helper provides more than half the effort to complete the activity 1 Dependent. The helper does all the effort to complete an activity 7 Patient refused to complete or attempt activity 9 The patient did not perform the activity before the current illness or injury 88 Not attempted due to Medical conditions or safety concerns Other Treatment Supine to sit EOB with no difficulty. Walked to bathroom and toileted with SBA, FWW. After washing hands SBA, walked to gym with SBA for safety, FWW. Pt transferred on and off chair with arms with SBA, FWW. Pt did 12 minutes bilat UE exercise with arm bike set at 15W resistance, with one break at midpoint. Pt worked at steady pace and reported that her shoulder was not bothering her. She had no trouble holding on to handles of arm bike. Pt walked back to room with SBA, FWW and was left up in bed, 4 rails up, all needs met. Education OT Patient Education: Exercise program, Purpose of tx/functional activities Teaching Recipient: Patient Teaching Methods: Discussion Response to Teaching: Verbalize Understanding OT Short Term Goals Short Term Goals Transfers (B,C,W/C) (FIM): 5 1=Demonstrate adherence to instructed precautions during ADL tasks. 2=Patient will verbalize/demonstrate understanding of assistive devices/ modifications for ADL. 3=Patient will improve strength/tolerance for activity to enable patient to perform ADL's. OT Long-Term Goals Long-Term Goals Time Frame: Sep 09, 2017 Eating (FIM): 6 Eating (QC): 6 Groomin Oral Hygiene (QC): 6 Bathing(FIM): 5 Shower/Bathe Self (QC): 5 Upper Body Dressing(FIM): 6 Upper Body Dressing (QC): 6 Lower Body Dressing(FIM): 6 Lower Body Dressing (QC): 6 On/Off Footwear (QC): 6 Toileting(FIM): 6 Toileting Hygiene (QC): 6 Transfers (B,C,W/C) (FIM): 6 Toilet/Commode Transfer(FIM): 6 Toilet/Commode Transfer (QC): 6 Shower Transfer(FIM): 5 Additional Goals: 1-Demonstrate ADL Tasks, 2-Verbalize Understanding, 3- ImproveStrength/[place] 1=Demonstrate adherence to instructed precautions during ADL tasks. 2=Patient will verbalize/demonstrate understanding of assistive devices/ modifications for ADL. 3=Patient will improve strength/tolerance for activity to enable patient to perform ADL's. OT Education/Plan Discharge Recommendations Plan/Recommendations: Continue POC Treatment Plan/Plan of Care Patient would benefit from OT for education, treatment and training to promote independence in ADL's, mobility, safety and/or upper extremity function for ADL' s. Plan of Care: ADL Retraining, Caregiver Training, Functional Mobility, Group Exercise/Act as Ind, UE Funct Exercise/Act Treatment Duration: Sep 09, 2017 Frequency: At least 5 of 7 days/Wk (IRF) Estimated Hrs Per Day: 1.5 hours per day Agreement: Yes Rehab Potential: Good Time/GCodes Start Time: 13:00 Stop Time: 13:30 Total Time Billed (hr/min): 30 Billed Treatment Time visit, 30 minutes exercise ASHLEY STACK OT Aug 30, 2017 14:41
[2017-08-30 18:33] VITALS: BP 120/75
[2017-08-30] MEDS: ROSUVASTATIN 5 MG (CRESTOR) TABLET PO SCH (20:33)
[2017-08-31] MEDS: PANTOPRAZOLE 40 MG (PROTONIX) TAB PO SCH (05:25)
[2017-08-31 06:10] VITALS: BP 138/81
[2017-08-31] MEDS: RT-ADVAIR HFA 45/21 MCG PER PUFF IH SCH ×2 (07:00→21:49)
[2017-08-31] MEDS: MUPIROCIN 2% OINT 22 GM (BACTROBAN) TUBE TOP SCH ×2 (08:50→21:28)
[2017-08-31] MEDS: GABAPENTIN 600 MG (NEURONTIN) TAB PO SCH ×2 (08:50→21:26)
[2017-08-31] MEDS: NICOTINE 14 MG (NICODERM) PATCH TD SCH (08:50)
[2017-08-31] MEDS: VENlafaxine XR 75 MG (EFFEXOR XR) CAP PO SCH ×2 (08:50→21:26)
[2017-08-31] MEDS: CLOPIDOGREL 75 MG (PLAVIX) TABLET PO SCH (08:50)
[2017-08-31] MEDS: meTOprolol TARTRATE 25 MG (LOPRESSOR) TABLET PO SCH ×2 (08:51→21:26)
[2017-08-31] MEDS: TOFACITINIB CITRATE 5 MG PO SCH ×2 (08:51→21:26)
[2017-08-31] MEDS: NICOTINE PATCH REMOVAL TP SCH (08:55)
--- NOTE | 2017-08-31 11:53 | Occupational Ther Daily Note ---
OT Current Status-Daily Note Subjective Pt supine in bed at beginning of tx. Agreeable to therapy. No mention of pain, including L shoulder. Appearance Alert, cooperative. Mental Status/Objective Functional [place] Measure 0=Not Assessed/NA 4=Minimal Assistance 1=Total Assistance 5=Supervision or Setup 2=Maximal Assistance 6=Modified [place] 3=Moderate Assistance 7=Complete [place] ADL-Treatment Functional [place] Measure 0=Not Assessed/NA 4=Minimal Assistance 1=Total Assistance 5=Supervision or Setup 2=Maximal Assistance 6=Modified [place] 3=Moderate Assistance 7=Complete IndependenceIRFPAI Quality Coding Scale 6 Independent with activity with or without an assistive device 5 Patient requires set up or clean up by helper. Patient completes activity by themselves 4 Supervision or touching assist (CGA). [place] provide cues , steadying assist 3 The helper provides less than half the effort to complete the activity 2 The helper provides more than half the effort to complete the activity 1 Dependent. The helper does all the effort to complete an activity 7 Patient refused to complete or attempt activity 9 The patient did not perform the activity before the current illness or injury 88 Not attempted due to Medical conditions or safety concerns Upper Body (FIM): 5 (Pt able to don and doff pullover shirt while seated with supervision for safety. ) Lower Body Dressing (FIM): 5 (Pt able to don and doff pants while seated with supervision for safety. ) Toileting (FIM): 5 (Pt able to manage hygiene and clothing with supervision with no observed LOB. Grab bars, tall toilet, FWW. ) Toilet/Commode Transfer (FIM): 5 (Pt able to transfer on and off toilet with SBA for safety. FWW, grab bars, tall toilet. ) Other Treatment Pt chose not to shower but changed clothes and toileted. Pt walked with FWW and SBA to gym. Pt used arm bike for 14 minutes at 15 sutton (increase of 2 minutes) for strengthening of UE to improve functional transfers and ADLs. While wearing 1# weights, pt used both UE to move rings on ROM arc on small and medium arc setting with a short recovery period between activities. Still wearing 1# weights, pt used alternating hands to remove and replace graduated clothes pins and remove and replace nuts and bolts. These activities will increase strength and grasp to improve ADL participation. Pt walked to room with FWW and SBA. Pt in room with all needs met at end of tx. Education OT Patient Education: Correct positioning, Progress toward Goal/Update tx plan , Purpose of tx/functional activities Teaching Recipient: Patient Teaching Methods: Demonstration, Discussion Response to Teaching: Verbalize Understanding, Return Demonstration OT Short Term Goals Short Term Goals Transfers (B,C,W/C) (FIM): 5 1=Demonstrate adherence to instructed precautions during ADL tasks. 2=Patient will verbalize/demonstrate understanding of assistive devices/ modifications for ADL. 3=Patient will improve strength/tolerance for activity to enable patient to perform ADL's. OT [place] Or [place] Animal Caretaker Goals [place] Animal Caretaker Goals Time Frame: Sep 09, 2017 Eating (FIM): 6 Eating (QC): 6 Groomin Oral Hygiene (QC): 6 Bathing(FIM): 5 Shower/Bathe Self (QC): 5 Upper Body Dressing(FIM): 6 Upper Body Dressing (QC): 6 Lower Body Dressing(FIM): 6 Lower Body Dressing (QC): 6 On/Off Footwear (QC): 6 Toileting(FIM): 6 Toileting Hygiene (QC): 6 Transfers (B,C,W/C) (FIM): 6 Toilet/Commode Transfer(FIM): 6 Toilet/Commode Transfer (QC): 6 Shower Transfer(FIM): 5 Additional Goals: 1-Demonstrate ADL Tasks, 2-Verbalize Understanding, 3- ImproveStrength/[place] 1=Demonstrate adherence to instructed precautions during ADL tasks. 2=Patient will verbalize/demonstrate understanding of assistive devices/ modifications for ADL. 3=Patient will improve strength/tolerance for activity to enable patient to perform ADL's. OT Education/Plan Discharge Recommendations Plan/Recommendations: Continue POC Treatment Plan/Plan of Care Patient would benefit from OT for education, treatment and training to promote independence in ADL's, mobility, safety and/or upper extremity function for ADL' s. Plan of Care: ADL Retraining, Caregiver Training, Functional Mobility, Group Exercise/Act as Ind, UE Funct Exercise/Act Treatment Duration: Sep 09, 2017 Frequency: At least 5 of 7 days/Wk (IRF) Estimated Hrs Per Day: 1.5 hours per day Agreement: Yes Rehab Potential: Good Time/GCodes Start Time: 08:30 Stop Time: 10:00 Total Time Billed (hr/min): 90 Billed Treatment Time visit, ADL 15 minutes, EX 75 minutes ASHLEY STACK OT Aug 31, 2017 11:53
--- NOTE | 2017-08-31 12:04 | Physical Therapy Daily Note ---
PT Daily Note-Current Subjective Pt sitting on EOB upon arrival visiting with neighbors. Pt agrees to PT. Pain Numeric Pain Scale: 5-Moderate Pain Location: Left Location Body Site: Knee Pain Description: Ache Mental Status Patient Orientation: Person, Place, Time, Situation Transfers Functional [place] Measure 0=Not Assessed/NA 4=Minimal Assistance 1=Total Assistance 5=Supervision or Setup 2=Maximal Assistance 6=Modified [place] 3=Moderate Assistance 7=Complete IndependenceIRFPAI Quality Coding Scale 6 Independent with activity with or without an assistive device 5 Patient requires set up or clean up by helper. Patient completes activity by themselves 4 Supervision or touching assist (CGA). [place] provide cues , steadying assist 3 The helper provides less than half the effort to complete the activity 2 The helper provides more than half the effort to complete the activity 1 Dependent. The helper does all the effort to complete an activity 7 Patient refused to complete or attempt activity 9 The patient did not perform the activity before the current illness or injury 88 Not attempted due to Medical conditions or safety concerns Scootin Sit to/from Stand: 5 Sit to Stand (QC): 5 Weight Bearing Right Lower Extremity: Right Weight Bearing/Tolerated Left Lower Extremity: Left Weight Bearing/Tolerated Gait Training Does the Patient Walk?: Yes Distance (FIM): 3=150 ft Distance: 150' Walk 10 feet (QC): 5 Walk 50 ft with 2 Turns(QC): 5 Walk 150 ft (QC): 5 Gait Level of Assist: 5 Gait Persons Needed: 1 Gait Assistive Device: FWW Pt ambulates with normalized gait despite reporting pain in L knee & R foot cramping. Wheelchair Training Does the Pt Use a Wheelchair?: No Exercises Seated Therapy Exercises: Ankle pumps, Long arc quads, Hip flexion, Kicking activity, Hip abd/add (10) Seated Reps: 20 NuStep Minutes: 15 NuStep Workload: 2 Treatments Pt transfers from EOB to standing using FWW at SBA. Pt ambulates in Therapy Commons before making her way to Therapy Gym. Pt uses NuStep for 15m at Workload 2 followed by Seated Ex in chair. Pt & PT completed pt ed. over what pt needs to complete before discharging and how pt is wanting to leave [facility]. Pt is advised about Weekly Rehab Mtg tomorrow and what takes place. Pt is resting in chair in Gym at end of tx with all needs met. Assessment Current Status: Good Progress Pt is anxious to get to Daughter on Labor & Delivery floor of hospital since she is in labor currently. Pt will finish time this morning to allow pt to get to daughter [facility]. PT Short Term Goals Short Term Goals Time Frame: Sep 02, 2017 Transfers (B,C,W/C) (FIM): 5 Gait (FIM): 5 PT Senior Care Goals Nurse Transition Goals PT Nurse Transition Goals Time Frame: Sep 09, 2017 Transfers (B,C,W/C) (FIM): 6 Sit to Lying (QC): 6 Lying-Sitting on Side/Bed(QC): 6 Sit to Stand (QC): 6 Rollin Roll Left to Right (QC): 6 Chair/Evk-rg-Fytyo Xfer(QC): 6 Car Transfer (QC): 6 Does the Patient Walk: Yes Gait (FIM): 6 Gait distance (FIM): 3=150 ft Walk 10 feet (QC): 6 Walk 10ft-Uneven Surface(QC): 6 Walk 50ft with 2 Turns (QC): 6 Walk 150 ft (QC): 6 Gait Assistive Device: FWW Stairs (FIM): 5 # of Steps: 8 1 Step (curb) (QC): 5 4 Steps (QC): 5 12 Steps (QC): 0 (dash) Picking up an Object (QC): 5 PT Plan Problem List Problem List: Activity Tolerance, Functional Strength, Safety Treatment/Plan Treatment Plan: Continue Plan of Care Treatment Plan: Bed Mobility, Education, Functional Activity [place], Functional Strength, Group Therapy, Gait, Safety, Therapeutic Exercise, Transfers Treatment Duration: Sep 09, 2017 Frequency: At least 5 of 7 days/Wk (IRF) Estimated Hrs Per Day: 1.5 hours per day Patient and/or Family Agrees t: Yes Safety Risks/Education Patient Education: Gait Training, Transfer Techniques, Correct Positioning, Safety Issues Teaching Recipient: Patient Teaching Methods: Discussion Response to Teaching: Verbalize Understanding Time/GCodes Time In: 1015 Time Out: 1100 Total Billed Treatment Time: 45 Total Billed Treatment 1, EX x2 (30m) & FA (15m) OMID LOGAN PRODUCTION ASSEMBLY SUPERVISOR Aug 31, 2017 12:04
--- NOTE | 2017-08-31 12:13 | Physical Therapy Daily Note ---
PT Daily Note-Current Subjective Agrees to continue with PT treatment. Wanting to go to [facility] when done with therapy as her daughter is in labor. Pain Numeric Pain Scale: 0-No Pain Location: No Pain Reported Mental Status Patient Orientation: Person, Place, Time, Situation Transfers Functional [place] Measure 0=Not Assessed/NA 4=Minimal Assistance 1=Total Assistance 5=Supervision or Setup 2=Maximal Assistance 6=Modified [place] 3=Moderate Assistance 7=Complete IndependenceIRFPAI Quality Coding Scale 6 Independent with activity with or without an assistive device 5 Patient requires set up or clean up by helper. Patient completes activity by themselves 4 Supervision or touching assist (CGA). [place] provide cues , steadying assist 3 The helper provides less than half the effort to complete the activity 2 The helper provides more than half the effort to complete the activity 1 Dependent. The helper does all the effort to complete an activity 7 Patient refused to complete or attempt activity 9 The patient did not perform the activity before the current illness or injury 88 Not attempted due to Medical conditions or safety concerns Transfers (B, C, W/C) (FIM): 5 Roll Left to Right (QC): 6 Sit to Lying (QC): 6 Sit to Stand (QC): 5 Chair/Kct-ab-Jyhwj Xfer(QC): 5 Car Transfer (QC): 5 Weight Bearing Right Lower Extremity: Right Weight Bearing/Tolerated Left Lower Extremity: Left Weight Bearing/Tolerated Gait Training Gait (FIM): 5 Walk 10 feet (QC): 5 Walk 50 ft with 2 Turns(QC): 5 Walk 150 ft (QC): 5 Walking 10ft/uneven surface-QC: 5 Gait Assistive Device: FWW Wheelchair Training Does the Pt Use a Wheelchair?: No Stair Training 1 Step (curb) (QC): 5 4 Steps (QC): 5 12 Steps (QC): 5 Balance Picking up an Object (QC): 5 Treatments Up/down 12 steps with step to gait using B handrails with SBA. Up/down curb step with FWW with SBA. Pt ambulated in gym 50 ft with 2 turns, over uneven surface with FWW with SBA and > 150 ft. Pt able to perform a car transfer with SBA. Pt ambulated 500 ft with FWW with sBA and up/down ramped surface all with SBA. Pt in her daughter's hospital room awaiting delivery of baby post treatment. Nurse and nurse guest services assistant aware. Also informed nursing staff on [facility] of patient's situation and room. Assessment Current Status: Good Progress Progressing. Continues to require SBA for safety purposes. PT Short Term Goals Short Term Goals Time Frame: Sep 02, 2017 Transfers (B,C,W/C) (FIM): 5 (met) Gait (FIM): 5 (met) PT Clinical Staff Educator Goals [place] Goals PT Clinical Staff Educator Goals Time Frame: Sep 09, 2017 Transfers (B,C,W/C) (FIM): 6 Sit to Lying (QC): 6 Lying-Sitting on Side/Bed(QC): 6 Sit to Stand (QC): 6 Rollin Roll Left to Right (QC): 6 Chair/Qvm-oa-Puxzc Xfer(QC): 6 Car Transfer (QC): 6 Does the Patient Walk: Yes Gait (FIM): 6 Gait distance (FIM): 3=150 ft Walk 10 feet (QC): 6 Walk 10ft-Uneven Surface(QC): 6 Walk 50ft with 2 Turns (QC): 6 Walk 150 ft (QC): 6 Gait Assistive Device: FWW Stairs (FIM): 5 # of Steps: 8 1 Step (curb) (QC): 5 4 Steps (QC): 5 12 Steps (QC): 0 (dash) Picking up an Object (QC): 5 PT Plan Problem List Problem List: Activity Tolerance, Functional Strength, Safety Treatment/Plan Treatment Plan: Continue Plan of Care Treatment Plan: Bed Mobility, Education, Functional Activity [place], Functional Strength, Group Therapy, Gait, Safety, Therapeutic Exercise, Transfers Treatment Duration: Sep 09, 2017 Frequency: At least 5 of 7 days/Wk (IRF) Estimated Hrs Per Day: 1.5 hours per day Patient and/or Family Agrees t: Yes Safety Risks/Education Patient Education: Transfer Techniques, Safety Issues Teaching Recipient: Patient Teaching Methods: Discussion Response to Teaching: Reinforcement Needed Discharge Recommendations Therapy D/C Recommendations: Physical Therapy Home Care Time/GCodes Time In: 1100 Time Out: 1145 Total Billed Treatment Time: 45 Total Billed Treatment visit GT 45 JEWEL LOREDO PT Aug 31, 2017 12:13
[2017-08-31] MEDS: DICLOFENAC 1% GEL 100 GM (VOLTAREN) TUBE TOP SCH ×3 (13:45→21:28)
--- NOTE | 2017-08-31 16:28 | PM & R (SOAP) Progress Note ---
Subjective Time Seen by Provider: 07:50 Subjective/Events-last exam Patient was seen in her room this AM Patient c/o increasing arthritic pain in left knee Requesting Linament Review of Systems Musculoskeletal: leg pain Objective Exam Last Set of Vital Signs Vital Signs Date Time Temp Pulse Resp B/P (MAP) Pulse Ox O2 Delivery O2 Flow Rate FiO2 08/31/17 07:51 Room Air 08/31/17 07:00 93 08/31/17 06:10 97.7 75 20 138/81 08/29/17 06:11 21 Capillary Refill : Less Than 3 Seconds I&O Intake and Output 09/01/17 00:00 Intake Total 300 ml Balance 300 ml Intake Oral 300 ml # Voids 4 General: Alert, Oriented X3, Cooperative, No Acute Distress HEENT: Atraumatic, PERRLA, EOMI, Mucous Memb Moist/[place] Neck: Supple, No JVD Lungs: Clear to Auscultation Heart: Regular Rate Abdomen: Normal Bowel Sounds, Soft, No Tenderness Extremities: No Edema Neuro: Other (Mild left HP lower >upper limbs) Assessment/Plan Assessment Recurrent rt cva with left HP RA on meds COPD on meds HTN controlled with meds Plan Continue PT/OT [facility] schedule-appreciate their note Team Conference tomorrow 09-01-17 Pain Management-Voltaran gel -see orders Patient SBA for transfers CHELSI CORDOBA MD Aug 31, 2017 16:28
[2017-08-31] MEDS: ROSUVASTATIN 5 MG (CRESTOR) TABLET PO SCH (21:26)
[2017-08-31 21:27] VITALS: BP 134/84
[2017-09-01] MEDS: PANTOPRAZOLE 40 MG (PROTONIX) TAB PO SCH (05:23)
[2017-09-01 05:32] VITALS: BP 134/78
[2017-09-01] MEDS: RT-ADVAIR HFA 45/21 MCG PER PUFF IH SCH (08:00)
[2017-09-01] MEDS: MUPIROCIN 2% OINT 22 GM (BACTROBAN) TUBE TOP SCH (09:04)
[2017-09-01] MEDS: TOFACITINIB CITRATE 5 MG PO SCH (09:04)
[2017-09-01] MEDS: CLOPIDOGREL 75 MG (PLAVIX) TABLET PO SCH (09:05)
[2017-09-01] MEDS: GABAPENTIN 600 MG (NEURONTIN) TAB PO SCH (09:05)
[2017-09-01] MEDS: meTOprolol TARTRATE 25 MG (LOPRESSOR) TABLET PO SCH (09:05)
[2017-09-01] MEDS: VENlafaxine XR 75 MG (EFFEXOR XR) CAP PO SCH (09:05)
[2017-09-01] MEDS: DICLOFENAC 1% GEL 100 GM (VOLTAREN) TUBE TOP SCH (09:05)
[2017-09-01] MEDS: NICOTINE 14 MG (NICODERM) PATCH TD SCH (09:05)
[2017-09-01] MEDS: NICOTINE PATCH REMOVAL TP SCH (09:06)
--- NOTE | 2017-09-01 09:26 | PM & R (SOAP) Progress Note ---
Subjective Time Seen by Provider: 09:20 Subjective/Events-last exam Patient was seen in her room this AM Patient excited about the of a grandchild at this facility wants to be discharged today Patient SBA for transfers Discussed with SW Objective Exam Last Set of Vital Signs Vital Signs Date Time Temp Pulse Resp B/P (MAP) Pulse Ox O2 Delivery O2 Flow Rate FiO2 09/01/17 05:32 97.3 82 20 134/78 93 Room Air 08/29/17 06:11 21 Capillary Refill : Less Than 3 Seconds I&O Intake and Output 09/02/17 00:00 Intake Total 800 ml Balance 800 ml Intake Oral 800 ml # Voids 4 General: Alert, Oriented X3, Cooperative, No Acute Distress HEENT: Atraumatic, PERRLA, EOMI, Mucous Memb Moist/[place] Neck: Supple, No JVD Lungs: Clear to Auscultation Heart: Regular Rate Abdomen: Normal Bowel Sounds, Soft, No Tenderness Extremities: No Edema Neuro: Other (Mild left HP lower >upper limbs) Assessment/Plan Assessment Recurrent rt cva with left HP RA on meds COPD on meds HTN controlled with meds Plan Continue PT/OT F/U SW re OK for discharge today to home-Patient indicates that she has friends and family who will assist her at home. CHELSI CORDOBA MD Sep 01, 2017 09:26
[2017-09-01] MEDS ORDERED: TRAM50TA2 PO (09:39)
[2017-09-01] MEDS ORDERED: NICO-587 TD (09:39)
[2017-09-01] MEDS ORDERED: CLOP75TA28 PO (10:14)
--- NOTE | 2017-09-01 10:39 | Physical Therapy Daily Note ---
PT Daily Note-Current Subjective Pt. very excited that her daughter has delivered a new baby boy upstairs in this facility. Pt. anxious to DC to her daughters home where she states all of her family will be around her to help her if she needs it Pain Numeric Pain Scale: 0-No Pain Mental Status Patient Orientation: Normal For Age Transfers Functional [place] Measure 0=Not Assessed/NA 4=Minimal Assistance 1=Total Assistance 5=Supervision or Setup 2=Maximal Assistance 6=Modified [place] 3=Moderate Assistance 7=Complete IndependenceIRFPAI Quality Coding Scale 6 Independent with activity with or without an assistive device 5 Patient requires set up or clean up by helper. Patient completes activity by themselves 4 Supervision or touching assist (CGA). [place] provide cues , steadying assist 3 The helper provides less than half the effort to complete the activity 2 The helper provides more than half the effort to complete the activity 1 Dependent. The helper does all the effort to complete an activity 7 Patient refused to complete or attempt activity 9 The patient did not perform the activity before the current illness or injury 88 Not attempted due to Medical conditions or safety concerns Transfers (B, C, W/C) (FIM): 6 Scootin Rollin Roll Left to Right (QC): 6 Supine to/from Sit: 6 Sit to/from Stand: 6 Sit to Lying (QC): 6 Sit to Stand (QC): 6 Chair/Rlf-jy-Lwyrd Xfer(QC): 6 Bed to/from Chair: 6 Car Transfer (QC): 6 Weight Bearing Right Lower Extremity: Right Weight Bearing/Tolerated Left Lower Extremity: Left Weight Bearing/Tolerated Gait Training Does the Patient Walk?: Yes Gait (FIM): 6 Distance (FIM): 3=150 ft (200x2) Walk 10 feet (QC): 6 Walk 50 ft with 2 Turns(QC): 6 Walk 150 ft (QC): 6 Walking 10ft/uneven surface-QC: 6 Gait Level of Assist: 6 Gait Persons Needed: 0 Gait Assistive Device: FWW gait and balance improved from admit. No LOB, safety awareness noted during rx Wheelchair Training Does the Pt Use a Wheelchair?: No Stair Training Stair Training: Handrails/: 2 handrails Stairs (FIM): 6 #of Steps: 12 1 Step (curb) (QC): 6 4 Steps (QC): 6 12 Steps (QC): 6 Stairs: Pattern: Step to Level of Assist: 6 Balance Picking up an Object (QC): 6 Exercises Supine Ex: Ankle pumps, Quad Set, Rolling, Heel Slides, Short Arc Quads, Scooting, Hip abd/add Supine Reps: 12 NuStep Minutes: 10 NuStep Workload: 2 Assessment Current Status: Good Progress meets goals, to DC today PT Short Term Goals Short Term Goals Time Frame: Sep 02, 2017 Transfers (B,C,W/C) (FIM): 5 (met) Gait (FIM): 5 (met) PT Half-Way Goals [employer] And Carriage Operator Goals PT [employer] And Carriage Operator Goals Time Frame: Sep 09, 2017 Transfers (B,C,W/C) (FIM): 6 Sit to Lying (QC): 6 Lying-Sitting on Side/Bed(QC): 6 Sit to Stand (QC): 6 Rollin Roll Left to Right (QC): 6 Chair/Qtr-sh-Viyou Xfer(QC): 6 Car Transfer (QC): 6 Does the Patient Walk: Yes Gait (FIM): 6 Gait distance (FIM): 3=150 ft Walk 10 feet (QC): 6 Walk 10ft-Uneven Surface(QC): 6 Walk 50ft with 2 Turns (QC): 6 Walk 150 ft (QC): 6 Gait Assistive Device: FWW Stairs (FIM): 5 # of Steps: 8 1 Step (curb) (QC): 5 4 Steps (QC): 5 12 Steps (QC): 0 (dash) Picking up an Object (QC): 5 PT Plan Treatment/Plan Treatment Plan: Continue Plan of Care Treatment Plan: Bed Mobility, Education, Functional Activity [place], Functional Strength, Group Therapy, Gait, Safety, Therapeutic Exercise, Transfers Treatment Duration: Sep 09, 2017 Frequency: At least 5 of 7 days/Wk (IRF) Estimated Hrs Per Day: 1.5 hours per day Patient and/or Family Agrees t: Yes Safety Risks/Education Patient Education: Gait Training, Transfer Techniques, Steps, Correct Positioning, Disease Process, Safety Issues Teaching Recipient: Patient Teaching Methods: Demonstration, Discussion Response to Teaching: Verbalize Understanding, Return Demonstration Time/GCodes Time In: 1000 Time Out: 1040 Total Billed Treatment Time: 40 Total Billed Treatment 1,GT10m,FA20m,E10m G Codes Necessary: ALEA Crane CHIEF DIVERSITY OFFICER Sep 01, 2017 10:39
--- NOTE | 2017-09-01 11:58 | Occupational Ther Daily Note ---
OT Current Status-Daily Note Subjective Pt sitting EOB at beginning of tx. Agreeable to therapy. No mention of pain. Appearance Alert, cooperative. Mental Status/Objective Functional [place] Measure 0=Not Assessed/NA 4=Minimal Assistance 1=Total Assistance 5=Supervision or Setup 2=Maximal Assistance 6=Modified [place] 3=Moderate Assistance 7=Complete [place] ADL-Treatment Pt walked to bathroom with FWW,no assistance then back to bed with FWW, no assistance. Functional [place] Measure 0=Not Assessed/NA 4=Minimal Assistance 1=Total Assistance 5=Supervision or Setup 2=Maximal Assistance 6=Modified [place] 3=Moderate Assistance 7=Complete IndependenceIRFPAI Quality Coding Scale 6 Independent with activity with or without an assistive device 5 Patient requires set up or clean up by helper. Patient completes activity by themselves 4 Supervision or touching assist (CGA). [place] provide cues , steadying assist 3 The helper provides less than half the effort to complete the activity 2 The helper provides more than half the effort to complete the activity 1 Dependent. The helper does all the effort to complete an activity 7 Patient refused to complete or attempt activity 9 The patient did not perform the activity before the current illness or injury 88 Not attempted due to Medical conditions or safety concerns Eating (FIM): 6 (Pt is able to manage packages and containers with no assistance and feed herself. Has dentures and nees them for eating some foods.) Eating (QC): 6 Grooming (FIM): 6 (Pt able to stand at sink and brush teeth, mod I. Washed hands and face in shower. FWW, accessible sink. Able to brush hair without help) Oral Hygiene (QC): 6 Bathing (FIM): 6 (Pt washed all 10 parts with no assist. Able to turn water off and on, retrieve towel, and retrieve clothes with no assistance. FWW, shower bench, hand held shower, grab bars. ) Shower/Bathe Self (QC): 6 Upper Body (FIM): 6 (Pt able to don/doff pullover shirt while seated with no assist. ) Upper Body Dressing (QC): 6 Lower Body Dressing (FIM): 6 (Pt able to don/doff underwear, pants, and socks with no assist. FWW. Sitting and standing) Lower Body Dressing (QC): 6 On/Off Footwear (QC): 6 (Doffed socks and donned shoes and socks with no assist. ) Toileting (FIM): 6 (Pt able to complete hygiene and manage clothing with no assist. FWW, grab bars, tall toilet. ) Toileting Hygiene (QC): 6 Toilet/Commode Transfer (FIM): 6 (Pt able to transfer on and off toilet with no assist. Tall toilet, grab bars, FWW.) Toilet Transfer (QC): 6 Shower Transfer(FIM): 6 (Pt able to transfer in and out of shower with no assist. FWW, grab bars, shower bench.) Pt reported having DME that will be needed, including having walker delivered. Pt will be staying with daughter for short term, then home and has no concerns with these plans. Pt sitting EOB with all needs met at end of tx. Education OT Patient Education: Progress toward Goal/Update tx plan, Purpose of tx/ functional activities, Safety issues Teaching Recipient: Patient Teaching Methods: Demonstration, Discussion Response to Teaching: Verbalize Understanding, Return Demonstration OT Short Term Goals Short Term Goals Transfers (B,C,W/C) (FIM): 5 (met) 1=Demonstrate adherence to instructed precautions during ADL tasks. 2=Patient will verbalize/demonstrate understanding of assistive devices/ modifications for ADL. 3=Patient will improve strength/tolerance for activity to enable patient to perform ADL's. OT Long-Term Goals Long-Term Goals Time Frame: Sep 09, 2017 Eating (FIM): 6 (goal met 09-01-17) Eating (QC): 6 (goal met 09-01-17) Groomin (goal met 09-01-17) Oral Hygiene (QC): 6 (goal met 09-01-17) Bathing(FIM): 5 (goal met 09-01-17) Shower/Bathe Self (QC): 5 (goal met 09-01-17) Upper Body Dressing(FIM): 6 (goal met 09-01-17) Upper Body Dressing (QC): 6 (goal met 09-01-17) Lower Body Dressing(FIM): 6 (goal met 09-01-17) Lower Body Dressing (QC): 6 (goal met 09-01-17) On/Off Footwear (QC): 6 (goal met 09-01-17) Toileting(FIM): 6 (goal met 09-01-17) Toileting Hygiene (QC): 6 (goal met 09-01-17) Transfers (B,C,W/C) (FIM): 6 Toilet/Commode Transfer(FIM): 6 (goal met 09-01-17) Toilet/Commode Transfer (QC): 6 (goal met 09-01-17) Shower Transfer(FIM): 5 (goal met 09-01-17) Additional Goals: 1-Demonstrate ADL Tasks, 2-Verbalize Understanding, 3- ImproveStrength/[place] 1=Demonstrate adherence to instructed precautions during ADL tasks. 2=Patient will verbalize/demonstrate understanding of assistive devices/ modifications for ADL. 3=Patient will improve strength/tolerance for activity to enable patient to perform ADL's. OT Education/Plan Discharge Recommendations Plan/Recommendations: Discharge/Goals Met (see tx plan for specifics) Therapy D/C Recommendations: Home w/ Family Support Treatment Plan/Plan of Care Patient would benefit from OT for education, treatment and training to promote independence in ADL's, mobility, safety and/or upper extremity function for ADL' s. Plan of Care: ADL Retraining, Caregiver Training, Functional Mobility, Group Exercise/Act as Ind, UE Funct Exercise/Act Treatment Duration: Sep 09, 2017 Frequency: At least 5 of 7 days/Wk (IRF) Estimated Hrs Per Day: 1.5 hours per day Agreement: Yes Rehab Potential: Good Time/GCodes Start Time: 11:15 Stop Time: 11:55 Total Time Billed (hr/min): 40 Billed Treatment Time visit, ADL 40 minutes ASHLEY STACK OT Sep 01, 2017 11:58
[2017-09-01 12:30] VITALS: BP 134/78
--- NOTE | 2017-09-01 12:53 | Therapy Team Discharge Summary ---
Therapy Discharge Summary Discharge Recommendations Date of Discharge Therapy D/C Recommendations: Physical Therapy Home Care Physical Therapy Patient came to rehab following a CVA. Upon admission patient performed bed mobility with SBA and transfers with CGA, ambulated 150' with a rolling walker with CGA, and went up and down 4 steps using a rolling walker with CGA. Patient has been performing bed mobility and transfer training, balance and endurance training, functional strengthening, stair training, gait training, and education. Patient has made good progress and has met all of her fpc goals. Now, patient performs bed mobility and transfers with mod I, ambulates 200' with a rolling walker with mod I including 50' with at least 2 turns of 90 degrees and 10' over an uneven surface, performs a car transfer with mod I, can go up and down 12 steps using 2 handrails with mod I, and sweet pickle maker an object from the floor with mod I. Patient is being discharged from this facility today and will be discharged from PT at this time. 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 Journeyman Apprentice Electricians Goals PT Journeyman Apprentice Electricians Goals Time Frame: Sep 09, 2017 Transfers (B,C,W/C) (FIM): 6 Roll Left to Right (QC): 6 Sit to Lying (QC): 6 Lying-Sitting on Side/Bed(QC): 6 Sit to Stand (QC): 6 Chair/Lpd-ob-Ulobm Xfer(QC): 6 Car Transfer (QC): 6 Does the Patient Walk: Yes Gait (FIM): 6 Gait distance (FIM): 3=150 ft Walk 10 feet (QC): 6 Walk 10ft-Uneven Surface(QC): 6 Walk 50ft with 2 Turns (QC): 6 Walk 150 ft (QC): 6 Gait Assistive Device: FWW Stairs (FIM): 5 # of Steps: 8 1 Step (curb) (QC): 5 4 Steps (QC): 5 12 Steps (QC): 0 (dash) Picking up an Object (QC): 5 OT Long-Term Goals Journeyman Apprentice Electricians Goals Time Frame: Sep 09, 2017 Eating (FIM): 6 Eating (QC): 6 Oral Hygiene (QC): 6 Grooming(FIM): 6 Bathing(FIM): 5 Shower/Bathe Self (QC): 5 Upper Body Dressing(FIM): 6 Upper Body Dressing (QC): 6 Lower Body Dressing(FIM): 6 Lower Body Dressing (QC): 6 On/Off Footwear (QC): 6 Toileting(FIM): 6 Toileting Hygiene (QC): 6 Transfers (B,C,W/C) (FIM): 6 Toilet/Commode Transfer(FIM): 6 Toilet/Commode Transfer (QC): 6 Shower Transfer(FIM): 5 Additional Goals: 1-Demonstrate ADL Tasks, 2-Verbalize Understanding, 3- ImproveStrength/[place] 1=Demonstrate adherence to instructed precautions during ADL tasks. 2=Patient will verbalize/demonstrate understanding of assistive devices/ modifications for ADL. 3=Patient will improve strength/tolerance for activity to enable patient to perform ADL's. CLEMENTE BLANCO PT Sep 01, 2017 12:53
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
== END 2017-09-01 14:06 | disposition home health service (06) | DRG 57 ==
PROVIDERS: ADMIT Physical Medicine & Rehabilitation; ATTEND Physical Medicine & Rehabilitation
DX: I69.354 Hemiplegia and hemiparesis following cerebral infarction affecting left non-dominant side (principal); J44.9 Chronic obstructive pulmonary disease, unspecified; K21.9 Gastro-esophageal reflux disease without esophagitis; I10 Essential (primary) hypertension; M06.9 Rheumatoid arthritis, unspecified; F32.9 Major depressive disorder, single episode, unspecified; F41.9 Anxiety disorder, unspecified; R32 Unspecified urinary incontinence; E66.9 Obesity, unspecified; E78.5 Hyperlipidemia, unspecified; F17.210 Nicotine dependence, cigarettes, uncomplicated; Z68.35 Body mass index [BMI] 35.0-35.9, adult
CPT/HCPCS: 94640; 94760

== ENCOUNTER → 2017-12-22 | Day surgery (SDC) | payer MEDICARE ==
[~2017-12-22] VITALS: Ht 167.6 cm; Wt 90.7 kg
[~2017-12-22] MED LIST changes: +ASPI325T32 PO; +CLOP75TA28 PO; +LIDOCAINE 1% INJ 50 ML (XYLOCAINE) VIAL ONE; +NICO-587 TD
--- OUTSIDE RECORDS SUMMARY | 2017-12-22 07:28 | XMS REPORT | Clinical Summary ---
Author Author Admin, QIE Organization [facility] Address Unknown Phone Unavailable Allergies, [...] Generic Name NDC Status Provider Patient Instruction BACTRIM DS 800-160 MG ORAL TABLET by mouth twice a day SULFAMETHOXAZOLE-TRIMETHOPRIM 57168363300 Active Saima Blum Active NITROFURANTOIN MACROCRYSTAL 100 MG ORAL CAPSULE Take one by mouth daily NITROFURANTOIN MACROCRYSTAL 64339290635 Active Saima Blum Active TRULICITY 0.75 MG/0.5ML SUBCUTANEOUS SOLUTION PEN-INJECTOR .qwk DULAGLUTIDE 26034998238 Active Parris Jordan MD Active ZETIA 10 MG ORAL TABLET Take one by mouth daily EZETIMIBE 09440869611 Active Parris Jordan MD Active ABILIFY 5 MG ORAL TABLET 1 qd ARIPIPRAZOLE 10000097692 No Longer Active Parris Jordan MD Active MELOXICAM 7.5 MG ORAL TABLET 2 qd MELOXICAM 49807521175 No Longer Active Parris Jordan MD Active SYMBICORT 80-4.5 MCG/ACT INHALATION AEROSOL 2 puffs daily BUDESONIDE-FORMOTEROL FUMARATE 35982296243 No Longer Active Parris Jordan MD Active RITALIN 10 MG ORAL TABLET 1 tab by mputh daily METHYLPHENIDATE HCL 26787577467 Active Aaliyah Alvares Active RITALIN 20 MG ORAL TABLET 1 tab by mouth twice daily METHYLPHENIDATE HCL 36882895432 Active Aaliyah Alvares Active NORVASC 5 MG ORAL TABLET 1 qd AMLODIPINE BESYLATE 70547009683 No Longer Active Aaliyah Alvares Active PROAIR HFA 108 (90 Base) MCG/ACT INHALATION AEROSOL SOLUTION prn ALBUTEROL SULFATE 88180246971 Active Parris Jordan MD Active [facility] DAILY MULTIPLE ORAL TABLET 1 qd MULTIPLE VITAMIN 97544669766 Active Parris Jordan MD Active CALCIUM 600 MG ORAL TABLET 1 qd CALCIUM 47116969696 Active Parris Jordan MD Active [facility] D3 CAPSULE 1 qd CHOLECALCIFEROL CAPS 67054232417 Active Parris Jordan MD Active EFFEXOR XR 75 MG ORAL CAPSULE EXTENDED RELEASE 24 HOUR 1 qd VENLAFAXINE HCL 41216250746 Active Parris Jordan MD Active XELJANZ 5 MG ORAL TABLET 1 bid TOFACITINIB CITRATE 55587736774 Active Parris Jordan MD Active ATORVASTATIN CALCIUM 40 MG ORAL TABLET 1 qd ATORVASTATIN CALCIUM 30692839708 Active Parris Jordan MD Active LOPRESSOR TABLET 25 mg 1 bid METOPROLOL TARTRATE TABS 20715682115 Active Parris Jordan MD Active ALPRAZOLAM 1 MG ORAL TABLET 1 tid ALPRAZOLAM 18101007268 Active Parris Jordan MD Active TRAMADOL HCL 50 MG ORAL TABLET 4x a day TRAMADOL HCL 45587723090 Active Parris Jordan MD Active OMEPRAZOLE 40 MG ORAL CAPSULE DELAYED RELEASE 1 qd OMEPRAZOLE 92423571730 Active Parris Jordan MD Active NORVASC 5 MG ORAL TABLET 1 qd NORVASC 5 MG ORAL TABLET 943263 AMLODIPINE BESYLATE Inactive SYMBICORT 80-4.5 MCG/ACT INHALATION AEROSOL 2 puffs daily SYMBICORT 80-4.5 MCG/ACT INHALATION AEROSOL BUDESONIDE-FORMOTEROL FUMARATE Inactive MELOXICAM 7.5 MG ORAL TABLET 2 qd MELOXICAM 7.5 MG ORAL TABLET 865259 MELOXICAM Inactive ABILIFY 5 MG ORAL TABLET 1 qd ABILIFY 5 MG ORAL TABLET 455100 ARIPIPRAZOLE Inactive Advance Directives Directive Description Start Date PERMISSION TO SHARE Encounters Code Encounter Date Provider Facility CPT-18504 Level 3 Est. 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 Patient 17:26:39 V BELT FINISHER Parris Jordan MD [facility] CPT-18904 Level 3 Est. Patient 16:17:17 CDT Parris Jordan MD [facility] CPT-57521 Level 3 Est. Patient 16:06:50 CDT Parris Jordan MD [facility] CPT-58494 Level 3 Est. Patient 16:52:25 CDT Parris Jordan MD [facility] CPT-79268 Level 3 Est. Patient 17:13:41 CDT Parris Jordan MD [facility] CPT-67075 Level 4 New Patient 22:47:28 CDT Parris Jordan MD [facility] Procedures Code Procedure Name Date Entry Date Standard Description CPT-93339 Bladder Scan 16:17:18 CDT CPT-09240 Bladder Scan 16:06:50 CDT CPT-15830 Postop F/U Visit 11:51:38 CDT CPT-63727 Interstim trial 17:13:41 CDT
--- OUTSIDE RECORDS SUMMARY | 2017-12-22 07:28 | XMS REPORT | Clinical Summary ---
Author Author Admin, E Organization [facility] Address Unknown Phone Unavailable Allergies, [...] TABLET by mouth twice a day SULFAMETHOXAZOLE-TRIMETHOPRIM 01359061017 Active Saima Blum Active NITROFURANTOIN MACROCRYSTAL 100 MG ORAL CAPSULE Take one by mouth daily NITROFURANTOIN MACROCRYSTAL 37979892838 Active Saima Blum Active TRULICITY 0.75 MG/0.5ML SUBCUTANEOUS SOLUTION PEN-INJECTOR .qwk DULAGLUTIDE 53788037120 Active Parris Jordan MD Active ZETIA 10 MG ORAL TABLET Take one by mouth daily EZETIMIBE 22256557678 Active Parris Jordan MD Active ABILIFY 5 MG ORAL TABLET 1 qd ARIPIPRAZOLE 91528724379 No Longer Active Parris Jordan MD Active MELOXICAM 7.5 MG ORAL TABLET 2 qd MELOXICAM 68815693992 No Longer Active Parris Jordan MD Active SYMBICORT 80-4.5 MCG/ACT INHALATION AEROSOL 2 puffs daily BUDESONIDE-FORMOTEROL FUMARATE 57259231993 No Longer Active Parris Jordan MD Active RITALIN 10 MG ORAL TABLET 1 tab by mputh daily METHYLPHENIDATE HCL 94919021258 Active Aaliyah Alvares Active RITALIN 20 MG ORAL TABLET 1 tab by mouth twice daily METHYLPHENIDATE HCL 64338844824 Active Aaliyah Alvares Active NORVASC 5 MG ORAL TABLET 1 qd AMLODIPINE BESYLATE 19547754930 No Longer Active Aaliyah Alvares Active PROAIR HFA 108 (90 Base) MCG/ACT INHALATION AEROSOL SOLUTION prn ALBUTEROL SULFATE 28266926013 Active Parris Jordan MD Active [facility] DAILY MULTIPLE ORAL TABLET 1 qd MULTIPLE VITAMIN 47559374080 Active Parris Jordan MD Active CALCIUM 600 MG ORAL TABLET 1 qd CALCIUM 45903952406 Active Parris Jordan MD Active [facility] D3 CAPSULE 1 qd CHOLECALCIFEROL CAPS 54123011328 Active Parris Jordan MD Active EFFEXOR XR 75 MG ORAL CAPSULE EXTENDED RELEASE 24 HOUR 1 qd VENLAFAXINE HCL 04216015038 Active Parris Jordan MD Active XELJANZ 5 MG ORAL TABLET 1 bid TOFACITINIB CITRATE 74112324274 Active Parris Jordan MD Active ATORVASTATIN CALCIUM 40 MG ORAL TABLET 1 qd ATORVASTATIN CALCIUM 93951629412 Active Parris Jordan MD Active LOPRESSOR TABLET 25 mg 1 bid METOPROLOL TARTRATE TABS 10819620547 Active Parris Jordan MD Active ALPRAZOLAM 1 MG ORAL TABLET 1 tid ALPRAZOLAM 13306498811 Active Parris Jordan MD Active TRAMADOL HCL 50 MG ORAL TABLET 4x a day TRAMADOL HCL 19132032432 Active Parris Jordan MD Active OMEPRAZOLE 40 MG ORAL CAPSULE DELAYED RELEASE 1 qd OMEPRAZOLE 68514029041 Active Parris Jordan MD Active NORVASC 5 MG ORAL TABLET 1 qd NORVASC 5 MG ORAL TABLET 951936 AMLODIPINE BESYLATE Inactive SYMBICORT 80-4.5 MCG/ACT INHALATION AEROSOL 2 puffs daily SYMBICORT 80-4.5 MCG/ACT INHALATION AEROSOL BUDESONIDE-FORMOTEROL FUMARATE Inactive MELOXICAM 7.5 MG ORAL TABLET 2 qd MELOXICAM 7.5 MG ORAL TABLET 254271 MELOXICAM Inactive ABILIFY 5 MG ORAL TABLET 1 qd ABILIFY 5 MG ORAL TABLET 891380 ARIPIPRAZOLE Inactive Advance Directives Directive Description Start Date PERMISSION TO SHARE Vital Signs Date Name Value Unit Range Description blood pressure, diastolic 82 mm[Hg] BP robert blood pressure, systolic 123 mm[Hg] BP sys pulse rate E&M 82 /min Heart rate temperature E&M 96.5 [degF] Body temperature weight E&M 201.5 [lb_av] Weight Measured Diagnostic Results Date Name Value Unit Range Description Office Visit: Follow up InterStim - Chemistry RBC, urine, dipstick non-hemolyzed trace protein, total urine random negative mg/dL Office Visit: Follow up InterSt[facility] - Urinalysis pH, urine, semiquantitative 5 specific gravity, urine 1.015 urinalysis, routine Clean Catch culture status Yes ketones, urine, by test strip negative bilirubin, urine negative glucose, urine, semiquantitative negative urine color yellow appearance, urine clear leukocyte esterase, urine, by dipstick 2+ nitrite, urine, semiquantitative positive urobilinogen, urine, semiquantitative (dipstick) negative protein, urine, semiquantitative (dipstick) negative Encounters Code Encounter Date Provider Facility CPT-81356 Level 3 Est. 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 Patient 17:26:39 RECREATION SUPERINTENDENT Parris Jordan MD [facility] CPT-06679 Level 3 Est. Patient 16:17:17 CDT Parris Jordan MD [facility] CPT-09729 Level 3 Est. Patient 16:06:50 CDT Parris Jordan MD [facility] CPT-57734 Level 3 Est. Patient 16:52:25 CDT Parris Jordan [facility] CPT-57909 Level 3 Est. Patient 17:13:41 CDT Parris Jordan MD [facility] CPT-38125 Level 4 New Patient 22:47:28 CDT Parris Jordan MD [facility] Procedures Code Procedure Name Date Entry Date Standard Description CPT-77978 Bladder Scan 16:17:18 CDT CPT-57399 Bladder Scan 16:06:50 CDT CPT-93675 Postop F/U Visit 11:51:38 CDT CPT-36538 Interstim trial 17:13:41 CDT
--- OUTSIDE RECORDS SUMMARY | 2017-12-22 07:36 | XMS REPORT | Continuity of Care Document ---
Author Author [facility] Address Unknown Phone Unavailable Allergies Active Description Code Type Severity Reaction Onset Reported/Identified Relationship to Patient Clinical Status Yes codeine 1550 Drug Allergy Severe Swelling Yes codeine 1550 Drug Allergy N/A N/A Confirmed or Verified Yes doxycycline 2748 Drug Allergy N /A N/A Confirmed or Verified Yes hydrocodone 1554 Drug Allergy Severe Swelling Yes hydrocodone 1554 Drug Allergy N /A N/A Confirmed or Verified Yes methylprednisolone 2160 Drug Allergy Severe Swelling Yes methylprednisolone 2160 Drug Allergy N/A N/A Confirmed or Verified Yes oxybutynin 4715 Drug Allergy Moderate mouth sores Yes oxybutynin 4715 Drug Allergy N/ A N/A Confirmed or Verified Yes PAPER TAPE [...] PAPER TAPE Unknown BLISTERS/SORES 07/10/2015 Yes doxycycline [id number] Drug Allergy Moderate FACIAL SWELLING 03/29/2017 Yes fluticasone furoate [id number] Drug Allergy Moderate N/V 03/29/2017 Yes hydrocodone [id number] Drug Allergy Moderate DYSPNEA, HIVES 03/29/2017 Yes Iodinated Contrast- Oral and IV Dye [id number] Drug Allergy Moderate N/A Yes paroxetine [id number] Drug Allergy Moderate N/A 03/29/2017 Yes vilanterol [id number] Drug Allergy Moderate N/V 03/29/2017 Yes methylprednisolone [id number] Drug Allergy Mild flushing and sk 03/29 Yes oxybutynin [id number] Drug Allergy Mild sores in mouth 03/29/2017 Yes codeine [id number] Drug Allergy Unknown HIVES 03/29/2017 Medications There is no data. Problems Date Dx Coded Attending Type Code [...] V25.09 Health Seminar On Care 11/22/2008 CARREON DO CORTEZ K 300.00 anxiety 11/22/2008 CARREON DOBERTA K 703.0 Ingrowing Nail With Infection 11/22/2008 CARREON DO CORTEZ K 703.9 Dermatology Non-infectious Nails 11/22/2008 CARREON DO CORTEZ K 704.8 Folliculitis 11/22/2008 CARREON DOBERTA K 714.0 RHEUMATOID ARTHRITIS 11/22/2008 CARREON DOBERTA K 785.6 Swollen Glands In The Neck [...] 11/22/2008 LYNDSAY RASHEED MD 704.8 Folliculitis 11/22/2008 YLNDSAY RASHEED MD 714.0 RHEUMATOID ARTHRITIS 11/22/2008 LYNDSAY [...] APRN V25.09 Health Seminar On Care 11/22/2008 IVÁNFITZ HARRIS TEQUILA 300.00 anxiety 11/22/2008 IVÁNFITZ HARRIS TEQUILA 703.0 Ingrowing Nail With Infection 11/22/2008 IVÁN WATER HAULER, TEQUILA 703.9 Dermatology Non-infectious Nails 11/22/2008 IVÁN WATER HAULER, TEQUILA 704.8 Folliculitis 11/22/2008 IVÁN WATER HAULER, TEQUILA 714.0 RHEUMATOID ARTHRITIS 11/22/2008 IVÁN WATER HAULER, TEQUILA 785.6 Swollen Glands In The Neck 11/22/2008 IVÁN WATER HAULER, TEQUILA V25.09 Health Seminar On Care 11/22/2008 IVÁN HARRIS TEQUILA 300.00 anxiety 11/22/2008 IVÁN WATER HAULER, TEQUILA 703.0 Ingrowing Nail With Infection 11/22/2008 IVÁN WATER HAULER, TEQUILA 703.9 Dermatology Non-infectious Nails 11/22/2008 IVÁN HARRIS TEQUILA 704.8 Folliculitis 11/22/2008 IVÁN WATER HAULER, TEQUILA 714.0 RHEUMATOID ARTHRITIS 11/22/2008 IVÁN WATER HAULER, TEQUILA 785.6 Swollen Glands In The Neck 11/22/2008 IVÁN HARRIS TEQUILA V25.09 Health Seminar On Care 11/22/2008 IVÁN HARRIS TEQUILA 300.00 anxiety 11/22/2008 IVÁN WATER HAULER, TEQUILA 703.0 Ingrowing Nail With Infection 11/22/2008 IVÁNFITZ HARRIS TEQUILA 703.9 Dermatology Non-infectious Nails 11/22/2008 IVÁN WATER HAULER, TEQUILA 704.8 Folliculitis 11/22/2008 IVÁN WATER HAULER, TEQUILA 714.0 RHEUMATOID ARTHRITIS 11/22/2008 IVÁN WATER HAULER, TEQUILA 785.6 Swollen Glands In The Neck 11/22/2008 IVÁN HARRIS TEQUILA V25.09 Health Seminar On Care 11/22/2008 IVÁN HARRIS TEQUILA 300.00 anxiety 11/22/2008 IVÁN WATER HAULER, TEQUILA 703.0 Ingrowing Nail With Infection 11/22/2008 IVÁN WATER HAULER, TEQUILA 703.9 Dermatology Non-infectious Nails 11/22/2008 IVÁN WATER HAULER, TEQUILA 704.8 Folliculitis 11/22/2008 IVÁN WATER HAULER, TEQUILA 714.0 RHEUMATOID ARTHRITIS 11/22/2008 IVÁN WATER HAULER, TEQUILA 785.6 Swollen Glands In The Neck 11/22/2008 IVÁN WATER HAULER, TEQUILA V25.09 Health Seminar On Care 11/22/2008 IVÁN HARRIS TEQUILA 300.00 anxiety 11/22/2008 IVÁN WATER HAULER, TEQUILA 703.0 Ingrowing Nail With Infection 11/22/2008 IVÁN WATER HAULER, TEQUILA 703.9 Dermatology Non-infectious Nails 11/22/2008 IVÁN WATER HAULER, TEQUILA 704.8 Folliculitis 11/22/2008 IVÁN WATER HAULER, TEQUILA 714.0 RHEUMATOID ARTHRITIS 11/22/2008 IVÁN WATER HAULER, TEQUILA 785.6 Swollen Glands In The Neck 11/22/2008 IVÁN WATER HAULER, TEQUILA V25.09 Health Seminar On Care 11/22/2008 SP HARRIS TREVER S 300.00 anxiety 11/22/2008 SP HARRIS TREVER S 703.0 Ingrowing Nail With Infection 11/22/2008 SP WATER HAULER, TREVER S 703.9 Dermatology Non-infectious Nails 11/22/2008 SP HARRIS TREVER S 704.8 Folliculitis 11/22/2008 SP HARRIS TREVER S 714.0 RHEUMATOID ARTHRITIS 11/22/2008 SP WATER HAULER, TREVER S 785.6 Swollen Glands In The Neck 11/22/2008 SP HARRIS TREVER S V25.09 Health Seminar On Care 11/22/2008 IVÁN WATER HAULER, TEQUILA 300.00 anxiety 11/22/2008 IVÁN WATER HAULER, TEQUILA 703.0 Ingrowing Nail With Infection 11/22/2008 IVÁN WATER HAULER, TEQUILA 703.9 Dermatology Non-infectious Nails 11/22/2008 IVÁN WATER HAULER, TEQUILA 704.8 Folliculitis 11/22/2008 IVÁN WATER HAULER, TEQUILA 714.0 RHEUMATOID ARTHRITIS 11/22/2008 IVÁN WATER HAULER TEQUILA 785.6 Swollen Glands In The Neck 11/22/2008 IVÁN HARRIS TEQUILA V25.09 Health Seminar On Care 11/22/2008 IVÁN HARRIS TEQUILA 300.00 anxiety 11/22/2008 IVÁN HARRIS TEQUILA 703.0 Ingrowing Nail With Infection 11/22/2008 IVÁN WATER HAULER, TEQUILA 703.9 Dermatology Non-infectious Nails 11/22/2008 IVÁN WATER HAULER, TEQUILA 704.8 Folliculitis 11/22/2008 IVÁN HARRIS TEQUILA 714.0 RHEUMATOID ARTHRITIS 11/22/2008 IVÁN HARRIS TEQUILA 785.6 Swollen Glands In The Neck 11/22/2008 IVÁN HARRIS TEQUILA V25.09 Health Seminar On Care 11/22/2008 DENICE MINOR APRNETTE 300.00 anxiety 11/22/2008 IVÁN HARRIS TEQUILA 703.0 Ingrowing Nail With Infection 11/22/2008 IVÁN HARRIS TEQUILA 703.9 Dermatology Non-infectious Nails 11/22/2008 IVÁN HARRIS TEQUILA 704.8 Folliculitis 11/22/2008 IVÁN HARRIS TEQUILA 714.0 RHEUMATOID ARTHRITIS 11/22/2008 IVÁN WATER HAULER, TEQUILA 785.6 Swollen Glands In The Neck 11/22/2008 IVÁN HARRIS TEQUILA V25.09 Health Seminar On Care 11/22/2008 SAMANTHA SNOWDEN APRNNDA S 300.00 anxiety 11/22/2008 PS HARRIS, TREVER S 703.0 Ingrowing Nail With Infection 11/22/2008 SP HARRIS TREVER S 703.9 Dermatology Non-infectious Nails 11/22/2008 SP HARRIS, TREVER S 704.8 Folliculitis 11/22/2008 SP HARRIS, TREVER S 714.0 RHEUMATOID ARTHRITIS 11/22/2008 SP HARRIS, TREVER S 785.6 Swollen Glands In The Neck 11/22/2008 SP HARRIS TREVER S V25.09 Health Seminar On Care 11/22/2008 IVÁN HARRIS TEQUILA 300.00 anxiety 11/22/2008 IVÁN HARRIS TEQUILA 703.0 Ingrowing Nail With Infection 11/22/2008 TEQUILA MINOR APRN 703.9 Dermatology Non-infectious Nails 11/22/2008 TEQUILA MINOR [...] APRN V72.31 Routine Gynecological Examination 11/30/2008 IVÁN WATER HAULER, TEQUILA 611.72 Breast Lump Or Mass Right 11/30/2008 IVÁN WATER HAULER, TEQUILA V72.31 Routine Gynecological Examination 11/30/2008 IVÁN WATER HAULER, TEQUILA 611.72 Breast Lump Or Mass Right 11/30/2008 IVÁN WATER HAULER, TEQUILA V72.31 Routine Gynecological Examination 11/30/2008 IVÁN WATER HAULER, TEQUILA 611.72 Breast Lump Or Mass Right 11/30/2008 IVÁN WATER HAULER, TEQUILA V72.31 Routine Gynecological Examination 11/30/2008 IVÁN WATER HAULER, TEQUILA 611.72 Breast Lump Or Mass Right 11/30/2008 IVÁN WATER HAULER, TEQUILA V72.31 Routine Gynecological Examination 11/30/2008 IVÁN WATER HAULER, TEQUILA 611.72 Breast Lump Or Mass Right 11/30/2008 IVÁN WATER HAULER, TEQUILA V72.31 Routine Gynecological Examination 11/30/2008 SP WATER HAULER, TREVER S 611.72 Breast Lump Or Mass Right 11/30/2008 SP HARRIS, TREVER S V72.31 Routine Gynecological Examination 11/30/2008 IVÁN WATER HAULER, TEQUILA 611.72 Breast Lump Or Mass Right 11/30/2008 IVÁN WATER HAULER, TEQUILA V72.31 Routine Gynecological Examination 11/30/2008 IVÁN WATER HAULER, TEQUILA 611.72 Breast Lump Or Mass Right 11/30/2008 IVÁN WATER HAULER, TEQUILA V72.31 Routine Gynecological Examination 11/30/2008 IVÁN WATER HAULER, TEQUILA 611.72 Breast Lump Or Mass Right 11/30/2008 IVÁN WATER HAULER, TEQUILA V72.31 Routine Gynecological Examination 11/30/2008 SP WATER HAULER, TREVER S 611.72 Breast Lump Or Mass Right 11/30/2008 SP WATER HAULER, TREVER S V72.31 Routine Gynecological Examination 11/30/2008 IVÁN WATER HAULER, TEQUILA 611.72 Breast Lump Or Mass Right 11/30/2008 IVÁN WATER HAULER, TEQUILA V72.31 Routine Gynecological Examination 03/01/2009 CORTEZ CARREON DO 795.03 Pap Smear (+) Low Grade Squamous Intraepithelial Lesion 03/01/2009 795.03 Pap Smear (+ ) Low Grade Squamous Intraepithelial Lesion 03/01/2009 CARREON CORTEZ HERNADEZ K 795.03 Pap Smear (+) Low Grade Squamous Intraepithelial Lesion 03/01/2009 CORTEZ CRAREON DO K 795.03 Pap Smear (+) Low Grade Squamous Intraepithelial Lesion 03/01/2009 MORAIMA LOYA APRN 795.03 Pap Smear (+) Low Grade Squamous Intraepithelial Lesion 03/01/2009 LYNDSAY RASHEED MD 795.03 Pap Smear (+) Low Grade Squamous Intraepithelial Lesion 03/01/2009 MORAIMA LOYA APRN 795.03 Pap Smear (+) Low Grade Squamous Intraepithelial Lesion 03/01/2009 795.03 Pap Smear (+ ) Low Grade Squamous Intraepithelial Lesion 03/01/2009 MORAIMA LOYA APRN 795.03 Pap Smear (+) Low Grade Squamous Intraepithelial Lesion 03/01/2009 MORAIMA LOYA APRN 795.03 Pap Smear (+) Low Grade Squamous Intraepithelial Lesion 03/01/2009 IVÁN WATER HAULER, TEQUILA 795.03 Pap Smear (+) Low Grade Squamous Intraepithelial Lesion 03/01/2009 IVÁN WATER HAULER, TEQUILA 795.03 Pap Smear (+) Low Grade Squamous Intraepithelial Lesion 03/01/2009 IVÁN WATER HAULER, TEQUILA 795.03 PAP SMEAR (+) LOW GRADE SQUAMOUS INTRAEPITHELIAL LESION 03/01/2009 IVÁN WATER HAULER, TEQUILA 795.03 PAP SMEAR (+) LOW GRADE SQUAMOUS INTRAEPITHELIAL LESION 03/01/2009 IVÁN WATER HAULER, TEQUILA 795.03 PAP SMEAR (+) LOW GRADE SQUAMOUS INTRAEPITHELIAL LESION 03/01/2009 SP HARRIS TREVER S 795.03 PAP SMEAR (+) LOW GRADE SQUAMOUS INTRAEPITHELIAL LESION 03/01/2009 IVÁN WATER HAULER, TEQUILA 795.03 PAP SMEAR (+) LOW GRADE SQUAMOUS INTRAEPITHELIAL LESION 03/01/2009 IVÁN WATER HAULER, TEQUILA 795.03 PAP SMEAR (+) LOW GRADE SQUAMOUS INTRAEPITHELIAL LESION 03/01/2009 IVÁN WATER HAULER, TEQUILA 795.03 PAP SMEAR (+) LOW GRADE SQUAMOUS INTRAEPITHELIAL LESION 03/01/2009 SP HARRIS TREVER S 795.03 PAP SMEAR (+) LOW GRADE SQUAMOUS INTRAEPITHELIAL LESION 03/01/2009 IVÁN WATER HAULER, TEQUILA 795.03 PAP SMEAR (+) LOW GRADE SQUAMOUS INTRAEPITHELIAL LESION 07/04/2009 CARREON DO, CORTEZ K 278.02 OVERWEIGHT 07/04/2009 278.02 OVERWEIGHT 07/04/2009 CARREON DO, CORTEZ K 278.02 OVERWEIGHT 07/04/2009 CARREON DO, CORTEZ K 278.02 OVERWEIGHT 07/04/2009 MORAIMA LOYA APRN 278.02 OVERWEIGHT 07/04/2009 LYNDSAY RASHEED MD 278.02 OVERWEIGHT 07/04/2009 MORAIMA LOYA APRN 278.02 OVERWEIGHT 07/04/2009 278.02 OVERWEIGHT 07/04/2009 LIDATON MORAIMA HARRIS 278.02 OVERWEIGHT 07/04/2009 MORAIMA LOYA APRN 278.02 OVERWEIGHT 07/04/2009 IVÁN WATER HAULER, TEQUILA 278.02 OVERWEIGHT 07/04/2009 IVÁN WATER HAULER, TEQUILA 278.02 OVERWEIGHT 07/04/2009 IVÁN WATER HAULER, TEQUILA 278.02 OVERWEIGHT 07/04/2009 IVÁN WATER HAULER, TEQUILA 278.02 OVERWEIGHT 07/04/2009 IVÁN WATER HAULER, TEQUILA 278.02 OVERWEIGHT 07/04/2009 SP WATER HAULER, TREVER S 278.02 OVERWEIGHT 07/04/2009 IVÁN WATER HAULER, TEQUILA 278.02 OVERWEIGHT 07/04/2009 IVÁN WATER HAULER, TEQUILA 278.02 OVERWEIGHT 07/04/2009 IVÁN WATER HAULER, TEQUILA 278.02 OVERWEIGHT 07/04/2009 SP WATER HAULER, TREVER S 278.02 OVERWEIGHT 07/04/2009 IVÁN WATER HAULER, TEQUILA 278.02 OVERWEIGHT 12/26/2009 CARREON DO, CORTEZ [...] 12/26/2009 MORAIMA LOYA APRN 716.90 ARTHROPATHY 12/26/2009 KATHYA WEBSTER, LYNDSAY 250.00 DIABETES MELLITUS 12/26/2009 LYNDSAY RASHEED MD 716.90 ARTHROPATHY 12/26/2009 MORAIMA LOYA APRN 250.00 DIABETES MELLITUS 12/26/2009 MORAIMA LOYA APRN 716.90 ARTHROPATHY 12/26/2009 250.00 DIABETES MELLITUS 12/26/2009 716.90 ARTHROPATHY 12/26/2009 MORAIMA LOYA APRN 250.00 DIABETES MELLITUS 12/26/2009 MORAIMA LOYA APRN 716.90 ARTHROPATHY 12/26/2009 MORAIMA LOYA APRN 250.00 DIABETES MELLITUS 12/26/2009 MORAIMA LOYA APRN 716.90 ARTHROPATHY 12/26/2009 IVÁN WATER HAULER, TEQUILA 250.00 DIABETES MELLITUS 12/26/2009 IVÁN WATER HAULER, TEQUILA 716.90 ARTHROPATHY 12/26/2009 IVÁN WATER HAULER, TEQUILA 250.00 DIABETES MELLITUS 12/26/2009 IVÁN WATER HAULER, TEQUILA 716.90 ARTHROPATHY 12/26/2009 IVÁN WATER HAULER, TEQUILA 250.00 DIABETES MELLITUS 12/26/2009 IVÁN WATER HAULER, TEQUILA 716.90 ARTHROPATHY 12/26/2009 IVÁN WATER HAULER, TEQUILA 250.00 DIABETES MELLITUS 12/26/2009 IVÁN WATER HAULER, TEQUILA 716.90 ARTHROPATHY 12/26/2009 IVÁN WATER HAULER, TEQUILA 250.00 DIABETES MELLITUS 12/26/2009 IVÁN WATER HAULER, TEQUILA 716.90 ARTHROPATHY 12/26/2009 SP WATER HAULER, TREVER S 250.00 DIABETES MELLITUS 12/26/2009 SP WATER HAULER, TREVER S 716.90 ARTHROPATHY 12/26/2009 IVÁN WATER HAULER, TEQUILA 250.00 DIABETES MELLITUS 12/26/2009 IVÁN WATER HAULER, TEQUILA 716.90 ARTHROPATHY 12/26/2009 IVÁN WATER HAULER, TEQUILA 250.00 DIABETES MELLITUS 12/26/2009 IVÁN WATER HAULER, TEQUILA 716.90 ARTHROPATHY 12/26/2009 IVÁN WATER HAULER, TEQUILA 250.00 DIABETES MELLITUS 12/26/2009 IVÁN WATER HAULER, TEQUILA 716.90 ARTHROPATHY 12/26/2009 SP WATER HAULER, TREVER S 250.00 DIABETES MELLITUS 12/26/2009 SP WATER HAULER, TREVER S 716.90 ARTHROPATHY 12/26/2009 IVÁN WATER HAULER, TEQUILA 250.00 DIABETES MELLITUS 12/26/2009 IVÁN WATER HAULER, TEQUILA 716.90 ARTHROPATHY 01/08/2010 CARREON DO CORTEZ K 682.3 Skin Abscess Of The Left Axilla 01/08/2010 682.3 Skin Abscess Of The Left Axilla 01/08/2010 CARREON DO CORTEZ K 682.3 Skin Abscess Of The Left Axilla 01/08/2010 CARREON DOBERTA K 682.3 Skin Abscess Of The Left Axilla 01/08/2010 MORAIMA LOYA APRN 682.3 Skin Abscess Of The Left Axilla 01/08/2010 LYNDSAY RASHEED MD 682.3 Skin Abscess Of The Left Axilla 01/08/2010 MORAIMA LOYA APRN 682.3 Skin Abscess Of The Left Axilla 01/08/2010 682.3 Skin Abscess Of The Left Axilla 01/08/2010 LIDATON MORAIMA HARRIS 682.3 Skin Abscess Of The Left Axilla 01/08/2010 MORAIMA LOYA APRN 682.3 Skin Abscess Of The Left Axilla 01/08/2010 IVÁN WATER HAULER, TEQUILA 682.3 Skin Abscess Of The Left Axilla 01/08/2010 IVÁN WATER HAULER, TEQUILA 682.3 Skin Abscess Of The Left Axilla 01/08/2010 IVÁN WATER HAULER, TEQUILA 682.3 Skin Abscess Of The Left Axilla 01/08/2010 IVÁN WATER HAULER, TEQUILA 682.3 Skin Abscess Of The Left Axilla 01/08/2010 IVÁN WATER HAULER, TEQUILA 682.3 Skin Abscess Of The Left Axilla 01/08/2010 SP HARRIS, TREVER S 682.3 Skin Abscess Of The Left Axilla 01/08/2010 IVÁN WATER HAULER, TEQUILA 682.3 Skin Abscess Of The Left Axilla 01/08/2010 IVÁN WATER HAULER, TEQUILA 682.3 Skin Abscess Of The Left Axilla 01/08/2010 IVÁN WATER HAULER, TEQUILA 682.3 Skin Abscess Of The Left Axilla 01/08/2010 TREVER SNOWDEN APRN 682.3 Skin Abscess Of The Left Axilla 01/08/2010 IVÁN WATER HAULER, TEQUILA 682.3 Skin Abscess Of The Left [...] APRN 682.9 Cellulitis 01/11/2010 MORAIMA LOYA APRN V58.31 Wound Dressing 01/11/2010 LYNDSAY RASHEED MD 682.9 Cellulitis 01/11/2010 LYNDSAY RASHEED MD V58.31 Wound Dressing 01/11/2010 MORAIMA LOYA APRN 682.9 Cellulitis 01/11/2010 MORAIMA LOYA APRN V58.31 Wound Dressing 01/11/2010 682.9 Cellulitis 01/11/2010 V58.31 Wound Dressing 01/11/2010 MORAIMA LOYA APRN 682.9 Cellulitis 01/11/2010 MORAIMA LOYA APRN D V58.31 Wound Dressing 01/11/2010 MORAIMA LOYA APRN D 682.9 Cellulitis 01/11/2010 MORAIMA LOYA APRN D V58.31 Wound Dressing 01/11/2010 IVÁN WATER HAULER, TEQUILA 682.9 Cellulitis 01/11/2010 IVÁN WATER HAULER, TEQUILA V58.31 Wound Dressing 01/11/2010 IVÁN WATER HAULER, TEQUILA 682.9 Cellulitis 01/11/2010 IVÁN WATER HAULER, TEQUILA V58.31 Wound Dressing 01/11/2010 IVÁN WATER HAULER, TEQUILA 682.9 Cellulitis 01/11/2010 IVÁN WATER HAULER, TEQUILA V58.31 Wound Dressing 01/11/2010 IVÁN WATER HAULER, TEQUILA 682.9 Cellulitis 01/11/2010 IVÁN WATER HAULER, TEQUILA V58.31 Wound Dressing 01/11/2010 IVÁN WATER HAULER, TEQUILA 682.9 Cellulitis 01/11/2010 IVÁN WATER HAULER, TEQUILA V58.31 Wound Dressing 01/11/2010 SP WATER HAULER, TREVER S 682.9 Cellulitis 01/11/2010 SP WATER HAULER, TREVER S V58.31 Wound Dressing 01/11/2010 IVÁN WATER HAULER, TEQUILA 682.9 Cellulitis 01/11/2010 IVÁN WATER HAULER, TEQUILA V58.31 Wound Dressing 01/11/2010 IVÁN WATER HAULER, TEQUILA 682.9 Cellulitis 01/11/2010 IVÁN WATER HAULER, TEQUILA V58.31 Wound Dressing 01/11/2010 IVÁN WATER HAULER, TEQUILA 682.9 Cellulitis 01/11/2010 IVÁN WATER HAULER, TEQUILA V58.31 Wound Dressing 01/11/2010 SP WATER HAULER, TREVER S 682.9 Cellulitis 01/11/2010 SP WATER HAULER, TREVER S V58.31 Wound Dressing 01/11/2010 IVÁN WATER HAULER, TEQUILA 682.9 Cellulitis 01/11/2010 IVÁN WATER HAULER, TEQUILA V58.31 Wound Dressing 01/17/2010 CORTEZ CARREON DO K 564.1 IRRITABLE BOWEL SYNDROME 01/17/2010 BERT CARREON DOA K 791.0 PROTEINURIA 01/17/2010 564.1 IRRITABLE BOWEL SYNDROME 01/17/2010 791.0 PROTEINURIA 01/17/2010 CARREON BERT HERNADEZA K 564.1 IRRITABLE BOWEL SYNDROME 01/17/2010 CARREON BERT HERNADEZA K 791.0 PROTEINURIA 01/17/2010 CARREON BERT HERNADEZA K 564.1 IRRITABLE BOWEL SYNDROME 01/17/2010 CARREON BERT HERNADEZA K 791.0 PROTEINURIA 01/17/2010 MORAIMA LOYA APRN 564.1 IRRITABLE BOWEL SYNDROME 01/17/2010 MORAIMA LOYA APRN 791.0 PROTEINURIA 01/17/2010 KATHYA WEBSTER, LYNDSAY 564.1 IRRITABLE BOWEL SYNDROME 01/17/2010 LYNDSAY RASHEED MD 791.0 PROTEINURIA 01/17/2010 MORAIMA LOYA APRN 564.1 IRRITABLE BOWEL SYNDROME 01/17/2010 MORAIMA LOYA APRN 791.0 PROTEINURIA 01/17/2010 564.1 IRRITABLE BOWEL SYNDROME 01/17/2010 791.0 PROTEINURIA 01/17/2010 MORAIMA LOYA APRN 564.1 IRRITABLE BOWEL SYNDROME 01/17/2010 MORAIMA LOYA APRN 791.0 PROTEINURIA 01/17/2010 MORAIMA LOYA APRN 564.1 IRRITABLE BOWEL SYNDROME 01/17/2010 MORAIMA LOYA APRN 791.0 PROTEINURIA 01/17/2010 IVÁN WATER HAULER, TEQUILA 564.1 IRRITABLE BOWEL SYNDROME 01/17/2010 IVÁN WATER HAULER, TEQUILA 791.0 PROTEINURIA 01/17/2010 IVÁN WATER HAULER, TEQUILA 564.1 IRRITABLE BOWEL SYNDROME 01/17/2010 IVÁN WATER HAULER, TEQUILA 791.0 PROTEINURIA 01/17/2010 IVÁN WATER HAULER, TEQUILA 564.1 IRRITABLE BOWEL SYNDROME 01/17/2010 IVÁN WATER HAULER, TEQUILA 791.0 PROTEINURIA 01/17/2010 IVÁN WATER HAULER, TEQUILA 564.1 IRRITABLE BOWEL SYNDROME 01/17/2010 IVÁN WATER HAULER, TEQUILA 791.0 PROTEINURIA 01/17/2010 IVÁN WATER HAULER, TEQUILA 564.1 IRRITABLE BOWEL SYNDROME 01/17/2010 IVÁN WATER HAULER, TQEUILA 791.0 PROTEINURIA 01/17/2010 SP WATER HAULER, TREVER S 564.1 IRRITABLE BOWEL SYNDROME 01/17/2010 SP WATER HAULER, TREVER S 791.0 PROTEINURIA 01/17/2010 IVÁN WATER HAULER, TEQUILA 564.1 IRRITABLE BOWEL SYNDROME 01/17/2010 IVÁN WATER HAULER, TEQUILA 791.0 PROTEINURIA 01/17/2010 IVÁN WATER HAULER, TEQUILA 564.1 IRRITABLE BOWEL SYNDROME 01/17/2010 IVÁN WATER HAULER, TEQUILA 791.0 PROTEINURIA 01/17/2010 IVÁN WATER HAULER, TEQUILA 564.1 IRRITABLE BOWEL SYNDROME 01/17/2010 IVÁN WATER HAULER, TEQUILA 791.0 PROTEINURIA 01/17/2010 SAMANTHA SNOWDEN APRNNDA S 564.1 IRRITABLE BOWEL SYNDROME 01/17/2010 SAMANTHA SNOWDEN APRNNDA S 791.0 PROTEINURIA 01/17/2010 IVÁN WATER HAULER, TEQUILA 564.1 IRRITABLE BOWEL SYNDROME 01/17/2010 IVÁN WATER HAULER, TEQUILA 791.0 PROTEINURIA 03/31/2010 BERT CARREON DOA K 627.1 Postmenopausal Bleeding 03/31/2010 627.1 Postmenopausal Bleeding 03/31/2010 BERT CARREON DOA K 627.1 Postmenopausal Bleeding 03/31/2010 CORTEZ CARREON DO K 627.1 Postmenopausal Bleeding 03/31/2010 MORAIMA LOYA APRN 627.1 Postmenopausal Bleeding 03/31/2010 LYNDSAY RASHEED MD 627.1 Postmenopausal Bleeding 03/31/2010 MORAIMA LOYA APRN 627.1 Postmenopausal Bleeding 03/31/2010 627.1 Postmenopausal Bleeding 03/31/2010 MORAIMA LOYA APRN 627.1 Postmenopausal Bleeding 03/31/2010 MORAIMA LOYA APRN 627.1 Postmenopausal Bleeding 03/31/2010 IVÁN WATER HAULER, TEQUILA 627.1 Postmenopausal Bleeding 03/31/2010 IVÁN WATER HAULER, TEQUILA 627.1 Postmenopausal Bleeding 03/31/2010 IVÁN WATER HAULER, TEQUILA 627.1 Postmenopausal Bleeding 03/31/2010 IVÁN WATER HAULER, TEQUILA 627.1 Postmenopausal Bleeding 03/31/2010 IVÁN WATER HAULER, TEQUILA 627.1 Postmenopausal Bleeding 03/31/2010 JAYCOB SNOWDEN APRNA S 627.1 Postmenopausal Bleeding 03/31/2010 IVÁN WATER HAULER, TEQUILA 627.1 Postmenopausal Bleeding 03/31/2010 IVÁN WATER HAULER, TEQUILA 627.1 Postmenopausal Bleeding 03/31/2010 IVÁN WATER HAULER, TEQUILA 627.1 Postmenopausal Bleeding 03/31/2010 JAYCOB SNOWDEN APRNA S 627.1 Postmenopausal Bleeding 03/31/2010 IVÁN WATER HAULER, TEQUILA 627.1 Postmenopausal Bleeding 04/21/2010 CORTEZ CARREON DO K 486 Pneumonia 04/21/2010 486 Pneumonia 04/21/2010 CARREON DO, CORTEZ K 486 Pneumonia 04/21/2010 CARREON DO, CORTEZ K 486 Pneumonia 04/21/2010 MORAIMA LOYA APRN 486 Pneumonia 04/21/2010 LYNDSAY RASHEED MD 486 Pneumonia 04/21/2010 SHALINI WATER HAULER, MORAIMA Rivera 486 Pneumonia 04/21/2010 486 Pneumonia 04/21/2010 SHALINI WATER HAULER, MORAIMA Rivera 486 Pneumonia 04/21/2010 SHALINI WATER HAULER, MORAIMA Rivera 486 Pneumonia 04/21/2010 IVÁN WATER HAULER, TEQUILA 486 Pneumonia 04/21/2010 IVÁN WATER HAULER, TEQUILA 486 Pneumonia 04/21/2010 IVÁN WATER HAULER, TEQUILA 486 Pneumonia 04/21/2010 IVÁN WATER HAULER, TEQUILA 486 Pneumonia 04/21/2010 IVÁN WATER HAULER, TEQUILA 486 Pneumonia 04/21/2010 SP WATER HAULER, TREVER S 486 Pneumonia 04/21/2010 IVÁN WATER HAULER, TEQUILA 486 Pneumonia 04/21/2010 IVÁN WATER HAULER, TEQUILA 486 Pneumonia 04/21/2010 IVÁN WATER HAULER, TEQUILA 486 Pneumonia 04/21/2010 SP WATER HAULER, TREVER S 486 Pneumonia 04/21/2010 IVÁN WATER HAULER, TEQUILA 486 Pneumonia 05/07/2010 CORTEZ CARREON DO 079.4 HUMAN PAPILLOMA VIRUS INFECTION 05/07/2010 CORTEZ CARREON DO K 616.10 Vaginitis Vulvovaginitis Unspecified 05/07/2010 079.4 HUMAN PAPILLOMA VIRUS INFECTION 05/07/2010 616.10 Vaginitis Vulvovaginitis Unspecified 05/07/2010 CORTEZ CARREON DO K 079.4 HUMAN PAPILLOMA VIRUS INFECTION 05/07/2010 CORTEZ CARREON DO K 616.10 Vaginitis Vulvovaginitis Unspecified 05/07/2010 CORTEZ CARREON DO K 079.4 HUMAN PAPILLOMA VIRUS INFECTION 05/07/2010 CORTEZ CARREON DO K 616.10 Vaginitis Vulvovaginitis Unspecified 05/07/2010 MORAIMA [...] APRN 616.10 Vaginitis Vulvovaginitis Unspecified 05/07/2010 IVÁN HARRIS TEQUILA 079.4 HUMAN PAPILLOMA VIRUS INFECTION 05/07/2010 IVÁN HARRIS TEQUILA 616.10 Vaginitis Vulvovaginitis Unspecified 05/07/2010 IVÁN HARRIS TEQUILA 079.4 HUMAN PAPILLOMA VIRUS INFECTION 05/07/2010 IVÁN HARRIS TEQUILA 616.10 Vaginitis Vulvovaginitis Unspecified 05/07/2010 IVÁN HARRIS TEQUILA 079.4 HUMAN PAPILLOMA VIRUS INFECTION 05/07/2010 IVÁN WATER HAULER, TEQUILA 616.10 Vaginitis Vulvovaginitis Unspecified 05/07/2010 IVÁN WATER HAULER, TEQUILA 079.4 HUMAN PAPILLOMA VIRUS INFECTION 05/07/2010 IVÁN HARRIS TEQUILA 616.10 Vaginitis Vulvovaginitis Unspecified 05/07/2010 IVÁN WATER HAULER, TEQUILA 079.4 HUMAN PAPILLOMA VIRUS INFECTION 05/07/2010 IVÁN WATER HAULER, TEQUILA 616.10 Vaginitis Vulvovaginitis Unspecified 05/07/2010 TREVER SNOWDEN APRN 079.4 HUMAN PAPILLOMA VIRUS INFECTION 05/07/2010 SP WATER HAULER, TREVER S 616.10 Vaginitis Vulvovaginitis Unspecified 05/07/2010 IVÁN WATER HAULER, TEQUILA 079.4 HUMAN PAPILLOMA VIRUS INFECTION 05/07/2010 IVÁN WATER HAULER, TEQUILA 616.10 Vaginitis Vulvovaginitis Unspecified 05/07/2010 IVÁN WATER HAULER, TEQUILA 079.4 HUMAN PAPILLOMA VIRUS INFECTION 05/07/2010 IVÁN WATER HAULER, TEQUILA 616.10 Vaginitis Vulvovaginitis Unspecified 05/07/2010 IVÁN WATER HAULER, TEQUILA 079.4 HUMAN PAPILLOMA VIRUS INFECTION 05/07/2010 IVÁN WATER HAULER, TEQUILA 616.10 Vaginitis Vulvovaginitis Unspecified 05/07/2010 SP WATER HAULER, TREVER S 079.4 HUMAN PAPILLOMA VIRUS INFECTION 05/07/2010 SP WATER HAULER, TREVER S 616.10 Vaginitis Vulvovaginitis Unspecified 05/07/2010 IVÁN WATER HAULER, TEQUILA 079.4 HUMAN PAPILLOMA VIRUS INFECTION 05/07/2010 IVÁN WATER HAULER, TEQUILA 616.10 Vaginitis Vulvovaginitis Unspecified 06/04/2010 BERT CARREON DOA K 466.0 Bronchitis, Acute 06/04/2010 BERT CARREON DOA K 622.11 CERVICAL DYSPLASIA: MILD 06/04/2010 466.0 Bronchitis, Acute 06/04/2010 622.11 CERVICAL DYSPLASIA: MILD 06/04/2010 BERT CARREON DOA K 466.0 Bronchitis, [...] RASHEED MD 622.11 CERVICAL DYSPLASIA: MILD 06/04/2010 GARTON WATER HAULER, MORAIMA D 466.0 Bronchitis, Acute 06/04/2010 GARTON WATER HAULER, MORAIMA D 622.11 CERVICAL DYSPLASIA: MILD 06/04/2010 466.0 Bronchitis, Acute 06/04/2010 622.11 CERVICAL DYSPLASIA: MILD 06/04/2010 GARTON WATER HAULER, MORAIMA D 466.0 Bronchitis, Acute 06/04/2010 GARTON WATER HAULER, MORAIMA D 622.11 CERVICAL DYSPLASIA: MILD 06/04/2010 GARTON WATER HAULER, MORAIMA D 466.0 Bronchitis, Acute 06/04/2010 GARTON WATER HAULER, MORAIMA D 622.11 CERVICAL DYSPLASIA: MILD 06/04/2010 IVÁN WATER HAULER, TEQUILA 466.0 Bronchitis, Acute 06/04/2010 IVÁN WATER HAULER, TEQUILA 622.11 CERVICAL DYSPLASIA: MILD 06/04/2010 IVÁN WATER HAULER, TEQUILA 466.0 Bronchitis, Acute 06/04/2010 IVÁN WATER HAULER, TEQUILA 622.11 CERVICAL DYSPLASIA: MILD 06/04/2010 IVÁN WATER HAULER, TEQUILA 466.0 Bronchitis, Acute 06/04/2010 IVÁN WATER HAULER, TEQUILA 622.11 CERVICAL DYSPLASIA: MILD 06/04/2010 IVÁN WATER HAULER, TEQUILA 466.0 Bronchitis, Acute 06/04/2010 IVÁN WATER HAULER, TEQUILA 622.11 CERVICAL DYSPLASIA: MILD 06/04/2010 IVÁN WATER HAULER, TEQUILA 466.0 Bronchitis, Acute 06/04/2010 IVÁN WATER HAULER, TEQUILA 622.11 CERVICAL DYSPLASIA: MILD 06/04/2010 SP WATER HAULER, TREVER S 466.0 Bronchitis, Acute 06/04/2010 SP WATER HAULER, TREVER S 622.11 CERVICAL DYSPLASIA: MILD 06/04/2010 IVÁN WATER HAULER, TEQUILA 466.0 Bronchitis, Acute 06/04/2010 IVÁN WATER HAULER, TEQUILA 622.11 CERVICAL DYSPLASIA: MILD 06/04/2010 IVÁN WATER HAULER, TEQUILA 466.0 Bronchitis, Acute 06/04/2010 IVÁN WATER HAULER, TEQUILA 622.11 CERVICAL DYSPLASIA: MILD 06/04/2010 IVÁN WATER HAULER, TEQUILA 466.0 Bronchitis, Acute 06/04/2010 IVÁN WATER HAULER, TEQUILA 622.11 CERVICAL DYSPLASIA: MILD 06/04/2010 SP WATER HAULER, TREVER S 466.0 Bronchitis, Acute 06/04/2010 TREVER SNOWDEN APRN S 622.11 CERVICAL DYSPLASIA: MILD 06/04/2010 TEQUILA MINOR APRN 466.0 Bronchitis, Acute 06/04/2010 DENICE MINOR APRNETTE 622.11 CERVICAL DYSPLASIA: MILD 06/30/2010 BERT CARREON DOA K 305.1 NICOTINE DEPENDENCE 06/30/2010 BERT CARREON DOA K 493.90 ASTHMA 06/30/2010 BERT CARREON DOA K V58.69 taking high-risk medication 06/30/2010 305.1 NICOTINE DEPENDENCE 06/30/2010 493.90 ASTHMA 06/30/2010 V58.69 taking high- risk medication 06/30/2010 BERT CARREON DOA K 305.1 [...] DEPENDENCE 06/30/2010 493.90 ASTHMA 06/30/2010 V58.69 taking high- risk medication 06/30/2010 MORAIMA LOYA APRN 305.1 NICOTINE DEPENDENCE 06/30/2010 MORAIMA LOYA APRN 493.90 ASTHMA 06/30/2010 MORAIMA LOYA APRN V58.69 taking high-risk medication 06/30/2010 MORAIMA LOYA APRN 305.1 NICOTINE DEPENDENCE 06/30/2010 MORAIMA LOYA APRN 493.90 ASTHMA 06/30/2010 MORAIMA LOYA APRN V58.69 taking high-risk medication 06/30/2010 IVÁN WATER HAULER, TEQUILA 305.1 NICOTINE DEPENDENCE 06/30/2010 IVÁN WATER HAULER, TEQUILA 493.90 ASTHMA 06/30/2010 IVÁN WATER HAULER, TEQUILA V58.69 taking high-risk medication 06/30/2010 IVÁN WATER HAULER, TEQUILA 305.1 NICOTINE DEPENDENCE 06/30/2010 IVÁN WATER HAULER, TEQUILA 493.90 ASTHMA 06/30/2010 IVÁN WATER HAULER, TEQUILA V58.69 taking high-risk medication 06/30/2010 IVÁN WATER HAULER, TEQUILA 305.1 NICOTINE DEPENDENCE 06/30/2010 IVÁN WATER HAULER, TEQUILA 493.90 ASTHMA 06/30/2010 IVÁN WATER HAULER, TEQUILA V58.69 taking high-risk medication 06/30/2010 IVÁN WATER HAULER, TEQUILA 305.1 NICOTINE DEPENDENCE 06/30/2010 IVÁN WATER HAULER, TEQUILA 493.90 ASTHMA 06/30/2010 IVÁN WATER HAULER, TEQUILA V58.69 taking high-risk medication 06/30/2010 IVÁN WATER HAULER, TEQUILA 305.1 NICOTINE DEPENDENCE 06/30/2010 IVÁN WATER HAULER, TEQUILA 493.90 ASTHMA 06/30/2010 IVÁN WATER HAULER, TEQUILA V58.69 taking high-risk medication 06/30/2010 SP WATER HAULER, TREVER S 305.1 NICOTINE DEPENDENCE 06/30/2010 SP WATER HAULER, TREVER S 493.90 ASTHMA 06/30/2010 SP WATER HAULER, TREVER S V58.69 taking high-risk medication 06/30/2010 IVÁN WATER HAULER, TEQUILA 305.1 NICOTINE DEPENDENCE 06/30/2010 IVÁN WATER HAULER, TEQUILA 493.90 ASTHMA 06/30/2010 IVÁN WATER HAULER, TEQUILA V58.69 taking high-risk medication 06/30/2010 IVÁN WATER HAULER, TEQUILA 305.1 NICOTINE DEPENDENCE 06/30/2010 IVÁN WATER HAULER, TEQUILA 493.90 ASTHMA 06/30/2010 IVÁN WATER HAULER, TEQUILA V58.69 taking high-risk medication 06/30/2010 IVÁN WATER HAULER, TEQUILA 305.1 NICOTINE DEPENDENCE 06/30/2010 IVÁN WATER HAULER, TEQUILA 493.90 ASTHMA 06/30/2010 IVNÁ WATER HAULER, TEQUILA V58.69 taking high-risk medication 06/30/2010 SP WATER HAULER, TREVER S 305.1 NICOTINE DEPENDENCE 06/30/2010 SP WATER HAULER, TREVER S 493.90 ASTHMA 06/30/2010 SP WATER HAULER, TREVER S V58.69 taking high-risk medication 06/30/2010 IVÁN WATER HAULER, TEQUILA 305.1 NICOTINE DEPENDENCE 06/30/2010 IVÁN WATER HAULER, TEQUILA 493.90 ASTHMA 06/30/2010 IVÁN WATER HAULER, TEQUILA V58.69 taking high-risk medication 11/21/2010 CORTEZ CARREON DO K 491.21 Bronchitis Aecb 11/21/2010 BERT CARREON DOA K 784.0 Headache 11/21/2010 491.21 Bronchitis Aecb 11/21/2010 784.0 Headache 11/21/2010 CARREON BERT HERNADEZA K 491.21 Bronchitis Aecb 11/21/2010 BERT CARREON DOA K 784.0 Headache 11/21/2010 CARREON BERT HERNADEZA K 491.21 Bronchitis Aecb 11/21/2010 BERT CARREON [...] 11/21/2010 MORAIMA LOYA APRN 784.0 Headache 11/21/2010 SHALINI WATER HAULERMORAIMA Sims 491.21 Bronchitis Aecb 11/21/2010 MORAIMA LOYA APRN 784.0 Headache 11/21/2010 IVÁN WATER HAULER, TEQUILA 491.21 Bronchitis Aecb 11/21/2010 IVÁN WATER HAULER, TEQUILA 784.0 Headache 11/21/2010 IVÁN WATER HAULER, TEQUILA 491.21 Bronchitis Aecb 11/21/2010 IVÁN WATER HAULER, TEQUILA 784.0 Headache 11/21/2010 IVÁN WATER HAULER, TEQUILA 491.21 Bronchitis Aecb 11/21/2010 IVÁN WATER HAULER, TEQUILA 784.0 Headache 11/21/2010 IVÁN WATER HAULER, TEQUILA 491.21 Bronchitis Aecb 11/21/2010 IVÁN WATER HAULER, TEQUILA 784.0 Headache 11/21/2010 IVÁN WATER HAULER, TEQUILA 491.21 Bronchitis Aecb 11/21/2010 IVÁN WATER HAULER, TEQUILA 784.0 Headache 11/21/2010 SP WATER HAULER, TREVER S 491.21 Bronchitis Aecb 11/21/2010 SP WATER HAULER, TREVER S 784.0 Headache 11/21/2010 IVÁN WATER HAULER, TEQUILA 491.21 Bronchitis Aecb 11/21/2010 IVÁN WATER HAULER, TEQUILA 784.0 Headache 11/21/2010 IVÁN WATER HAULER, TEQUILA 491.21 Bronchitis Aecb 11/21/2010 IVÁN WATER HAULER, TEQUILA 784.0 Headache 11/21/2010 IVÁN WATER HAULER, TEQUILA 491.21 Bronchitis Aecb 11/21/2010 IVÁN WATER HAULER, TEQUILA 784.0 Headache 11/21/2010 SP WATER HAULER, TREVER S 491.21 Bronchitis Aecb 11/21/2010 SP WATER HAULER, TREVER S 784.0 Headache 11/21/2010 IVÁN WATER HAULER, TEQUILA 491.21 Bronchitis Aecb 11/21/2010 IVÁN WATER HAULER, TEQUILA 784.0 Headache 12/16/2010 CORTEZ CARREON DO 530.81 ESOPHAGEAL REFLUX 12/16/2010 CORTEZ CARREON DO 786.50 Chest Pain Or Discomfort 12/16/2010 CARREON DO, CORTEZ K 790.29 PREDIABETES (IMPAIRED GLUCOSE TOLERANCE) 12/16/2010 CARREON DO CORTEZ K V76.10 Visit For: Screening Exam Malignant Neoplasm Breast 12/16/2010 530.81 ESOPHAGEAL REFLUX 12/16/2010 786.50 Chest Pain Or Discomfort 12/16/2010 790.29 PREDIABETES ( IMPAIRED GLUCOSE TOLERANCE) 12/16/2010 V76.10 Visit For: Screening Exam Malignant Neoplasm Breast 12/16/2010 CARREON DO CORTEZ K 530.81 ESOPHAGEAL REFLUX 12/16/2010 CARREON DO, CORTEZ K 786.50 Chest Pain Or Discomfort [...] APRN 790.29 PREDIABETES (IMPAIRED GLUCOSE TOLERANCE) 12/16/2010 MINNIE LOYA APRNBETH D V76.10 Visit For: Screening Exam Malignant Neoplasm Breast 12/16/2010 530.81 ESOPHAGEAL REFLUX 12/16/2010 786.50 Chest Pain Or Discomfort 12/16/2010 790.29 PREDIABETES ( IMPAIRED GLUCOSE TOLERANCE) 12/16/2010 V76.10 Visit For: Screening Exam Malignant Neoplasm Breast 12/16/2010 MINNIE LOYA APRNBETH D 530.81 ESOPHAGEAL REFLUX 12/16/2010 MINNIE LOYA APRNBETH D 786.50 Chest Pain Or Discomfort 12/16/2010 SHALINI HARRIS MORAIMA D 790.29 PREDIABETES (IMPAIRED GLUCOSE TOLERANCE) 12/16/2010 MINNIE LOYA APRNBETH D V76.10 Visit For: Screening Exam Malignant Neoplasm Breast 12/16/2010 MINNIE LOYA APRNBETH D 530.81 ESOPHAGEAL REFLUX 12/16/2010 MINNIE LOYA APRNBETH D 786.50 Chest Pain Or Discomfort 12/16/2010 MINNIE LOYA APRNBETH D 790.29 PREDIABETES (IMPAIRED GLUCOSE TOLERANCE) 12/16/2010 MINNIE LOYA APRNBETH D V76.10 Visit For: Screening Exam Malignant Neoplasm Breast 12/16/2010 IVÁN WATER HAULER, TEQUILA 530.81 ESOPHAGEAL REFLUX 12/16/2010 IVÁN WATER HAULER, TEQUILA 786.50 Chest Pain Or Discomfort 12/16/2010 IVÁN WATER HAULER, TEQUILA 790.29 PREDIABETES (IMPAIRED GLUCOSE TOLERANCE) 12/16/2010 IVÁN HARRIS TEQUILA V76.10 Visit For: Screening Exam Malignant Neoplasm Breast 12/16/2010 IVÁN WATER HAULER, TEQUILA 530.81 ESOPHAGEAL REFLUX 12/16/2010 IVÁN WATER HAULER, TEQUILA 786.50 Chest Pain Or Discomfort 12/16/2010 IVÁN WATER HAULER, TEQUILA 790.29 PREDIABETES (IMPAIRED GLUCOSE TOLERANCE) 12/16/2010 IVÁN WATER HAULER, TEQUILA V76.10 Visit For: Screening Exam Malignant Neoplasm Breast 12/16/2010 IVÁN WATER HAULER, TEQUILA 530.81 ESOPHAGEAL REFLUX 12/16/2010 IVÁN WATER HAULER, TEQUILA 786.50 Chest Pain Or Discomfort 12/16/2010 IVÁN WATER HAULER, TEQUILA 790.29 PREDIABETES (IMPAIRED GLUCOSE TOLERANCE) 12/16/2010 IVÁN WATER HAULER, TEQUILA V76.10 Visit For: Screening Exam Malignant Neoplasm Breast 12/16/2010 IVÁN WATER HAULER, TEQUILA 530.81 ESOPHAGEAL REFLUX 12/16/2010 IVÁN WATER HAULER, TEQUILA 786.50 Chest Pain Or Discomfort 12/16/2010 IVÁN WATER HAULER, TEQUILA 790.29 PREDIABETES (IMPAIRED GLUCOSE TOLERANCE) 12/16/2010 IVÁN WATER HAULER, TEQUILA V76.10 Visit For: Screening Exam Malignant Neoplasm Breast 12/16/2010 IVÁN WATER HAULER, TEQUILA 530.81 ESOPHAGEAL REFLUX 12/16/2010 IVÁN WATER HAULER, TEQUILA 786.50 Chest Pain Or Discomfort 12/16/2010 IVÁN WATER HAULER, TEQUILA 790.29 PREDIABETES (IMPAIRED GLUCOSE TOLERANCE) 12/16/2010 IVÁN WATER HAULER, TEQUILA V76.10 Visit For: Screening Exam Malignant Neoplasm Breast 12/16/2010 SP WATER HAULER, TREVER S 530.81 ESOPHAGEAL REFLUX 12/16/2010 SP WATER HAULER, TREVER S 786.50 Chest Pain Or Discomfort 12/16/2010 SP WATER HAULER, TREVER S 790.29 PREDIABETES (IMPAIRED GLUCOSE TOLERANCE) 12/16/2010 SP WATER HAULER, TREVER S V76.10 Visit For: Screening Exam Malignant Neoplasm Breast 12/16/2010 IVÁN WATER HAULER, TEQUILA 530.81 ESOPHAGEAL REFLUX 12/16/2010 IVÁN WATER HAULER, TEQUILA 786.50 Chest Pain Or Discomfort 12/16/2010 IVÁN WATER HAULER, TEQUILA 790.29 PREDIABETES (IMPAIRED GLUCOSE TOLERANCE) 12/16/2010 IVÁN WATER HAULER, TEQUILA V76.10 Visit For: Screening Exam Malignant Neoplasm Breast 12/16/2010 IVÁN WATER HAULER, TEQUILA 530.81 ESOPHAGEAL REFLUX 12/16/2010 IVÁN WATER HAULER, TEQUILA 786.50 Chest Pain Or Discomfort 12/16/2010 IVÁN WATER HAULER, TEQUILA 790.29 PREDIABETES (IMPAIRED GLUCOSE TOLERANCE) 12/16/2010 IVÁN WATER HAULER, TEQUILA V76.10 Visit For: Screening Exam Malignant Neoplasm Breast 12/16/2010 IVÁN WATER HAULER, TEQUILA 530.81 ESOPHAGEAL REFLUX 12/16/2010 IVÁN WATER HAULER, TEQUILA 786.50 Chest Pain Or Discomfort 12/16/2010 IVÁN WATER HAULER, TEQUILA 790.29 PREDIABETES (IMPAIRED GLUCOSE TOLERANCE) 12/16/2010 IVÁN WATER HAULER, TEQUILA V76.10 Visit For: Screening Exam Malignant Neoplasm Breast 12/16/2010 SP WATER HAULER, TREVER S 530.81 ESOPHAGEAL REFLUX 12/16/2010 SP WATER HAULER, TREVER S 786.50 Chest Pain Or Discomfort 12/16/2010 SP WATER HAULER, TREVER S 790.29 PREDIABETES (IMPAIRED GLUCOSE TOLERANCE) 12/16/2010 SP WATER HAULER, TREVER S V76.10 Visit For: Screening Exam Malignant Neoplasm Breast 12/16/2010 IVÁN WATER HAULER, TEQUILA 530.81 ESOPHAGEAL REFLUX 12/16/2010 IVÁN WATER HAULER, TEQUILA 786.50 Chest Pain Or Discomfort 12/16/2010 IVÁN WATER HAULER, TEQUILA 790.29 PREDIABETES (IMPAIRED GLUCOSE TOLERANCE) 12/16/2010 IVÁN WATER HAULER, TEQUILA V76.10 Visit For: Screening Exam Malignant [...] 01/19/2011 MORAIMA LOYA APRN 786.2 Cough 01/19/2011 LYNDSAY RASHEED MD 414.00 CORONARY ARTERY DISEASE 01/19/2011 LYNDSAY RASHEED MD 466.0 Acute Bronchitis 01/19/2011 LYNDSAY RASHEED MD 786.2 Cough 01/19/2011 MORAIMA LOYA APRN D 414.00 CORONARY ARTERY DISEASE 01/19/2011 MORAIMA LOYA APRN D 466.0 Acute Bronchitis 01/19/2011 MORAIMA LOYA APRN D 786.2 Cough 01/19/2011 414.00 CORONARY ARTERY DISEASE 01/19/2011 466.0 Acute Bronchitis 01/19/2011 786.2 Cough 01/19/2011 MORAIMA LOYA APRN D 414.00 CORONARY ARTERY DISEASE 01/19/2011 MORAIMA LOYA APRN D 466.0 Acute Bronchitis 01/19/2011 MORAIMA LOYA APRN 786.2 Cough 01/19/2011 MORAIMA LOYA APRN D 414.00 CORONARY ARTERY DISEASE 01/19/2011 MORAIMA LOYA APRN D 466.0 Acute Bronchitis 01/19/2011 MORAIMA LOYA APRN D 786.2 Cough 01/19/2011 IVÁN WATER HAULER, TEQUILA 414.00 CORONARY ARTERY DISEASE 01/19/2011 IVÁN WATER HAULER, TEQUILA 466.0 Acute Bronchitis 01/19/2011 IVÁN WATER HAULER, TEQUILA 786.2 Cough 01/19/2011 IVÁN WATER HAULER, TEQUILA 414.00 CORONARY ARTERY DISEASE 01/19/2011 IVÁN WATER HAULER, TEQUILA 466.0 Acute Bronchitis 01/19/2011 IVÁN WATER HAULER, TEQUILA 786.2 Cough 01/19/2011 IVÁN WATER HAULER, TEQUILA 414.00 CORONARY ARTERY DISEASE 01/19/2011 IVÁN WATER HAULER, TEQUILA 466.0 Acute Bronchitis 01/19/2011 IVÁN WATER HAULER, TEQUILA 786.2 Cough 01/19/2011 IVÁN WATER HAULER, TEQUILA 414.00 CORONARY ARTERY DISEASE 01/19/2011 IVÁN WATER HAULER, TEQUILA 466.0 Acute Bronchitis 01/19/2011 IVÁN WATER HAULER, TEQUILA 786.2 Cough 01/19/2011 IVÁN WATER HAULER, TEQUILA 414.00 CORONARY ARTERY DISEASE 01/19/2011 IVÁN WATER HAULER, TEQUILA 466.0 Acute Bronchitis 01/19/2011 IVÁN WATER HAULER, TEQUILA 786.2 Cough 01/19/2011 SP WATER HAULER, TREVER S 414.00 CORONARY ARTERY DISEASE 01/19/2011 SP WATER HAULER, TREVER S 466.0 Acute Bronchitis 01/19/2011 SP WATER HAULER, TREVER S 786.2 Cough 01/19/2011 IVÁN WATER HAULER, TEQUILA 414.00 CORONARY ARTERY DISEASE 01/19/2011 IVÁN WATER HAULER, TEQUILA 466.0 Acute Bronchitis 01/19/2011 IVÁN WATER HAULER, TEQUILA 786.2 Cough 01/19/2011 IVÁN WATER HAULER, TEQUILA 414.00 CORONARY ARTERY DISEASE 01/19/2011 IVÁN WATER HAULER, TEQUILA 466.0 Acute Bronchitis 01/19/2011 IVÁN WATER HAULER, TEQUILA 786.2 Cough 01/19/2011 IVÁN WATER HAULER, TEQUILA 414.00 CORONARY ARTERY DISEASE 01/19/2011 IVÁN WATER HAULER, TEQUILA 466.0 Acute Bronchitis 01/19/2011 IVÁN WATER HAULER, TEQUILA 786.2 Cough 01/19/2011 SP WATER HAULER, TREVER S 414.00 CORONARY ARTERY DISEASE 01/19/2011 SP WATER HAULER, TREVER S 466.0 Acute Bronchitis 01/19/2011 SP WATER HAULER, TREVER S 786.2 Cough 01/19/2011 IVÁN WATER HAULER, TEQUILA 414.00 CORONARY ARTERY DISEASE 01/19/2011 IVÁN WATER HAULER, TEQUILA 466.0 Acute Bronchitis 01/19/2011 IVÁN WATER HAULER, TEQUILA 786.2 Cough 03/11/2011 CORTEZ CARREON DO K 787.02 Nausea Alone 03/11/2011 CORTEZ CARREON DO K 789.03 Abdominal Pain Right Lower Quadrant 03/11/2011 787.02 Nausea Alone 03/11/2011 789.03 Abdominal Pain Right Lower Quadrant 03/11/2011 CORTEZ CARREON DO K 787.02 Nausea Alone 03/11/2011 CORTEZ CARREON DO K 789.03 Abdominal Pain Right Lower Quadrant 03/11/2011 BERT CARREON DOA K 787.02 Nausea Alone 03/11/2011 BERT CARREON DOA K 789.03 Abdominal Pain Right Lower Quadrant [...] Abdominal Pain Right Lower Quadrant 03/11/2011 IVÁN KIMBERLY, TEQUILA 787.02 Nausea Alone 03/11/2011 IVÁN WATER HAULER, TEQUILA 789.03 Abdominal Pain Right Lower Quadrant 03/11/2011 IVÁN WATER HAULER, TEQUILA 787.02 Nausea Alone 03/11/2011 IVÁN WATER HAULER, TEQUILA 789.03 Abdominal Pain Right Lower Quadrant 03/11/2011 IVÁN WATER HAULER, TEQUILA 787.02 Nausea Alone 03/11/2011 IVÁN WATER HAULER, TEQUILA 789.03 Abdominal Pain Right Lower Quadrant 03/11/2011 IVÁN WATER HAULER, TEQUILA 787.02 Nausea Alone 03/11/2011 IVÁN WATER HAULER, TEQUILA 789.03 Abdominal Pain Right Lower Quadrant 03/11/2011 IVÁN WATER HAULER, TEQUILA 787.02 Nausea Alone 03/11/2011 IVÁN WATER HAULER, TEQUILA 789.03 Abdominal Pain Right Lower Quadrant 03/11/2011 SPTEJA HARRIS TREVER S 787.02 Nausea Alone 03/11/2011 SPTEJA HARRIS TREVER S 789.03 Abdominal Pain Right Lower Quadrant 03/11/2011 IVÁN WATER HAULER, TEQUILA 787.02 Nausea Alone 03/11/2011 IVÁN WATER HAULER, TEQUILA 789.03 Abdominal Pain Right Lower Quadrant 03/11/2011 IVÁN WATER HAULER, TEQUILA 787.02 Nausea Alone 03/11/2011 IVÁN WATER HAULER, TEQUILA 789.03 Abdominal Pain Right Lower Quadrant 03/11/2011 IVÁN WATER HAULER, TEQUILA 787.02 Nausea Alone 03/11/2011 IVÁN WATER HAULER, TEQUILA 789.03 Abdominal Pain Right Lower Quadrant 03/11/2011 SP WATER HAULER, TREVER S 787.02 Nausea Alone 03/11/2011 SP WATER HAULER, TREVER S 789.03 Abdominal Pain Right Lower Quadrant 03/11/2011 IVÁN WATER HAULER, TEQUILA 787.02 Nausea Alone 03/11/2011 IVÁN WATER HAULER, TEQUILA 789.03 Abdominal Pain Right Lower Quadrant 04/09/2011 CARREON DO, CORTEZ K 272.4 HYPERLIPIDEMIA 04/09/2011 CARREON DO, CORTEZ K 458.0 ORTHOSTATIC HYPOTENSION 04/09/2011 CARREON DO, CORTEZ K 571.8 FATTY LIVER 04/09/2011 CARREON DO, CORTEZ K 788.30 INCONTINENCE/ENURESIS NOS 04/09/2011 272.4 HYPERLIPIDEMIA 04/09/2011 458.0 ORTHOSTATIC HYPOTENSION 04/09/2011 571.8 FATTY LIVER 04/09/2011 788.30 INCONTINENCE/ ENURESIS NOS 04/09/2011 CARREON DO, CORTEZ K 272.4 [...] HYPOTENSION 04/09/2011 571.8 FATTY LIVER 04/09/2011 788.30 INCONTINENCE/ ENURESIS NOS 04/09/2011 MORAIMA LOYA APRN 272.4 HYPERLIPIDEMIA 04/09/2011 MORAIMA LOYA APRN 458.0 ORTHOSTATIC HYPOTENSION 04/09/2011 MORAIMA LOYA APRN 571.8 FATTY LIVER 04/09/2011 MORAIMA LOYA APRN 788.30 INCONTINENCE/ENURESIS NOS 04/09/2011 MORAIMA LOYA APRN 272.4 HYPERLIPIDEMIA 04/09/2011 MORAIMA LOYA APRN 458.0 ORTHOSTATIC HYPOTENSION 04/09/2011 MORAIMA LOYA APRN 571.8 FATTY LIVER 04/09/2011 MORAIMA LOYA APRN 788.30 INCONTINENCE/ENURESIS NOS 04/09/2011 IVÁN WATER HAULER, TEQUILA 272.4 HYPERLIPIDEMIA 04/09/2011 IVÁN WATER HAULER, TEQUILA 458.0 ORTHOSTATIC HYPOTENSION 04/09/2011 IVÁN WATER HAULER, TEQUILA 571.8 FATTY LIVER 04/09/2011 IVÁN WATER HAULER, TEQUILA 788.30 INCONTINENCE/ENURESIS NOS 04/09/2011 IVÁN WATER HAULER, TEQUILA 272.4 HYPERLIPIDEMIA 04/09/2011 IVÁN WATER HAULER, TEQUILA 458.0 ORTHOSTATIC HYPOTENSION 04/09/2011 IVÁN WATER HAULER, TEQUILA 571.8 FATTY LIVER 04/09/2011 IVÁN WATER HAULER, TEQUILA 788.30 INCONTINENCE/ENURESIS NOS 04/09/2011 IVÁN WATER HAULER, TEQUILA 272.4 HYPERLIPIDEMIA 04/09/2011 IVÁN WATER HAULER, TEQUILA 458.0 ORTHOSTATIC HYPOTENSION 04/09/2011 IVÁN WATER HAULER, TEQUILA 571.8 FATTY LIVER 04/09/2011 IVÁN WATER HAULER, TEQUILA 788.30 INCONTINENCE/ENURESIS NOS 04/09/2011 IVÁN WATER HAULER, TEQUILA 272.4 HYPERLIPIDEMIA 04/09/2011 IVÁN WATER HAULER, TEQUILA 458.0 ORTHOSTATIC HYPOTENSION 04/09/2011 IVÁN WATER HAULER, TEQUILA 571.8 FATTY LIVER 04/09/2011 IVÁN WATER HAULER, TEQUILA 788.30 INCONTINENCE/ENURESIS NOS 04/09/2011 IVÁN WATER HAULER, TEQUILA 272.4 HYPERLIPIDEMIA 04/09/2011 IVÁN WATER HAULER, TEQUILA 458.0 ORTHOSTATIC HYPOTENSION 04/09/2011 IVÁN WATER HAULER, TEQUILA 571.8 FATTY LIVER 04/09/2011 IVÁN WATER HAULER, TEQUILA 788.30 INCONTINENCE/ENURESIS NOS 04/09/2011 SP WATER HAULER, TREVER S 272.4 HYPERLIPIDEMIA 04/09/2011 SP WATER HAULER, TREVER S 458.0 ORTHOSTATIC HYPOTENSION 04/09/2011 SP WATER HAULER, TREVER S 571.8 FATTY LIVER 04/09/2011 SP WATER HAULER, TREVER S 788.30 INCONTINENCE/ENURESIS NOS 04/09/2011 IVÁN WATER HAULER, TEQUILA 272.4 HYPERLIPIDEMIA 04/09/2011 IVÁN WATER HAULER, TEQUILA 458.0 ORTHOSTATIC HYPOTENSION 04/09/2011 IVÁN WATER HAULER, TEQUILA 571.8 FATTY LIVER 04/09/2011 IVÁN WATER HAULER, TEQUILA 788.30 INCONTINENCE/ENURESIS NOS 04/09/2011 IVÁN WATER HAULER, TEQUILA 272.4 HYPERLIPIDEMIA 04/09/2011 IVÁN WATER HAULER, TEQUILA 458.0 ORTHOSTATIC HYPOTENSION 04/09/2011 IVÁN WATER HAULER, TEQUILA 571.8 FATTY LIVER 04/09/2011 IVÁN WATER HAULER, TEQUILA 788.30 INCONTINENCE/ENURESIS NOS 04/09/2011 IVÁN WATER HAULER, TEQUILA 272.4 HYPERLIPIDEMIA 04/09/2011 IVÁN WATER HAULER, TEQUILA 458.0 ORTHOSTATIC HYPOTENSION 04/09/2011 IVÁN WATER HAULER, TEQUILA 571.8 FATTY LIVER 04/09/2011 IVÁN WATER HAULER, TEQUILA 788.30 INCONTINENCE/ENURESIS NOS 04/09/2011 SP WATER HAULER, TREVER S 272.4 HYPERLIPIDEMIA 04/09/2011 SP WATER HAULER, TREVER S 458.0 ORTHOSTATIC HYPOTENSION 04/09/2011 SP WATER HAULER, TREVER S 571.8 FATTY LIVER 04/09/2011 SP WATER HAULER, TREVER S 788.30 INCONTINENCE/ENURESIS NOS 04/09/2011 IVÁN WATER HAULER, TEQUILA 272.4 HYPERLIPIDEMIA 04/09/2011 IVÁN WATER HAULER, TEQUILA 458.0 ORTHOSTATIC HYPOTENSION 04/09/2011 IVÁN WATER HAULER, TEQUILA 571.8 FATTY LIVER 04/09/2011 IVÁN WATER HAULER, TEQUILA 788.30 INCONTINENCE/ENURESIS NOS 05/08/2011 CARREON DO, [...] LOYA APRN 703.0 Nail Ingrown 05/08/2011 IVÁN WATER HAULER, TEQUILA 110.1 Onychomycosis 05/08/2011 IVÁN WATER HAULER, TEQUILA 703.0 Nail Ingrown 05/08/2011 IVÁN WATER HAULER, TEQUILA 110.1 Onychomycosis 05/08/2011 IVÁN WATER HAULER, TEQUILA 703.0 Nail Ingrown 05/08/2011 IVÁN WATER HAULER, TEQUILA 110.1 Onychomycosis 05/08/2011 IVÁN WATER HAULER, TEQUILA 703.0 Nail Ingrown 05/08/2011 IVÁN WATER HAULER, TEQUILA 110.1 Onychomycosis 05/08/2011 IVÁN WATER HAULER, TEQUILA 703.0 Nail Ingrown 05/08/2011 IVÁN WATER HAULER, TEQUILA 110.1 Onychomycosis 05/08/2011 IVÁN WATER HAULER, TEQUILA 703.0 Nail Ingrown 05/08/2011 SP WATER HAULER, TREVER S 110.1 Onychomycosis 05/08/2011 SP WATER HAULER, TREVER S 703.0 Nail Ingrown 05/08/2011 IVÁN WATER HAULER, TEQUILA 110.1 Onychomycosis 05/08/2011 IVÁN WATER HAULER, TEQUILA 703.0 Nail Ingrown 05/08/2011 IVÁN WATER HAULER, TEQUILA 110.1 Onychomycosis 05/08/2011 IVÁN WATER HAULER, TEQUILA 703.0 Nail Ingrown 05/08/2011 IVÁN WATER HAULER, TEQUILA 110.1 Onychomycosis 05/08/2011 VIÁN WATER HAULER, TEQUILA 703.0 Nail Ingrown 05/08/2011 SP WATER HAULER, TREVER S 110.1 Onychomycosis 05/08/2011 SP WATER HAULER, TREVER S 703.0 Nail Ingrown 05/08/2011 IVÁN WATER HAULER, TEQUILA 110.1 Onychomycosis 05/08/2011 IVÁN WATER HAULER, TEQUILA 703.0 Nail Ingrown 06/17/2011 CORTEZ CARREON DO 780.1 Hallucinations 06/17/2011 CARREON CORTEZ HERNADEZ 781.1 Disturbances Of Sensation Of Smell And [...] Sensation Of Smell And Taste 06/17/2011 MORAIMA LOAY APRN 780.1 Hallucinations 06/17/2011 MORAIMA LOYA APRN 781.1 Disturbances Of Sensation Of Smell And Taste 06/17/2011 IVÁN WATER HAULER, TEQUILA 780.1 Hallucinations 06/17/2011 IVÁN WATER HAULER, TEQUILA 781.1 Disturbances Of Sensation Of Smell And Taste 06/17/2011 IVÁN WATER HAULER TEQUILA 780.1 Hallucinations 06/17/2011 IVÁN WATER HAULER, TEQUILA 781.1 Disturbances Of Sensation Of Smell And Taste 06/17/2011 IVÁN WATER HAULER, TEQUILA 780.1 Hallucinations 06/17/2011 IVÁN WATER HAULER, TEQUILA 781.1 Disturbances Of Sensation Of Smell And Taste 06/17/2011 IVÁN WATER HAULER TEQUILA 780.1 Hallucinations 06/17/2011 IVÁN WATER HAULER, TEQUILA 781.1 Disturbances Of Sensation Of Smell And Taste 06/17/2011 IVÁN WATER HAULER, TEQUILA 780.1 Hallucinations 06/17/2011 IVÁN WATER HAULER, TEQUILA 781.1 Disturbances Of Sensation Of Smell And Taste 06/17/2011 SP WATER HAULER, TREVER S 780.1 Hallucinations 06/17/2011 SP WATER HAULER, TREVER S 781.1 Disturbances Of Sensation Of Smell And Taste 06/17/2011 IVÁN WATER HAULER, TEQUILA 780.1 Hallucinations 06/17/2011 IVÁN WATER HAULER, TEQUILA 781.1 Disturbances Of Sensation Of Smell And Taste 06/17/2011 IVÁN WATER HAULER, TEQUILA 780.1 Hallucinations 06/17/2011 IVÁN WATER HAULER, TEQUILA 781.1 Disturbances Of Sensation Of Smell And Taste 06/17/2011 IVÁN WATER HAULER, TEQUILA 780.1 Hallucinations 06/17/2011 IVÁN WATER HAULER, TEQUILA 781.1 Disturbances Of Sensation Of Smell And Taste 06/17/2011 SP WATER HAULER, TREVER S 780.1 Hallucinations 06/17/2011 SP WATER HAULER, TREVER S 781.1 Disturbances Of Sensation Of Smell And Taste 06/17/2011 IVÁN WATER HAULER, TEQUILA 780.1 Hallucinations 06/17/2011 IVÁN WATER HAULER, TEQUILA 781.1 Disturbances Of Sensation Of Smell [...] LAURI HERNADEZ CORTEZ K 276.8 Hypokalemia 08/31/2011 CARREON DO, CORTEZ K V04.81 Vaccines Prophylactic Need Against Influenza 08/31/2011 CARREON DO, CORTEZ K V73.81 Visit For: Screening Exam For Human Papillomavirus (hpv) 08/31/2011 CARREON DO, CORTEZ K V76.2 Cervical Pap Smear 08/31/2011 CARREON DO, CORTEZ K 275.2 Hypomagnesemia 08/31/2011 CARREON DO, CORTEZ K 276.8 Hypokalemia 08/31/2011 CARREON DO, CORTEZ K V04.81 Vaccines Prophylactic Need Against Influenza 08/31/2011 CARREON DO, CORTEZ K V73.81 Visit For: Screening Exam [...] V04.81 Vaccines Prophylactic Need Against Influenza 08/31/2011 MINNIE LOYA APRNBETH D V73.81 Visit For: Screening Exam For Human Papillomavirus (hpv) 08/31/2011 MORAIMA LOYA APRN V76.2 Cervical Pap Smear 08/31/2011 MORAIMA LOYA APRN 275.2 Hypomagnesemia 08/31/2011 MORAIMA LOYA APRN 276.8 Hypokalemia 08/31/2011 MORAIMA LOYA APRN V04.81 Vaccines Prophylactic Need Against Influenza 08/31/2011 MINNIE LOYA APRNBETH D V73.81 Visit For: Screening Exam For Human Papillomavirus (hpv) 08/31/2011 MORAIMA LOYA APRN V76.2 Cervical Pap Smear 08/31/2011 IVÁN WATER HAULER, TEQUILA 275.2 Hypomagnesemia 08/31/2011 IVÁN WATER HAULER, TEQUILA 276.8 Hypokalemia 08/31/2011 IVÁN WATER HAULER, TEQUILA V04.81 Vaccines Prophylactic Need Against Influenza 08/31/2011 IVÁN WATER HAULER, TEQUILA V73.81 Visit For: Screening Exam For Human Papillomavirus (hpv) 08/31/2011 IVÁN WATER HAULER, TEQUILA V76.2 Cervical Pap Smear 08/31/2011 IVÁN WATER HAULER, TEQUILA 275.2 Hypomagnesemia 08/31/2011 IVÁN WATER HAULER, TEQUILA 276.8 Hypokalemia 08/31/2011 IVÁN WATER HAULER, TEQUILA V04.81 Vaccines Prophylactic Need Against Influenza 08/31/2011 IVÁN WATER HAULER, TEQUILA V73.81 Visit For: Screening Exam For Human Papillomavirus (hpv) 08/31/2011 IVÁN WATER HAULER, TEQUILA V76.2 Cervical Pap Smear 08/31/2011 IVÁN WATER HAULER, TEQUILA 275.2 Hypomagnesemia 08/31/2011 IVÁN WATER HAULER, TEQUILA 276.8 Hypokalemia 08/31/2011 IVÁN WATER HAULER, TEQUILA V04.81 Vaccines Prophylactic Need Against Influenza 08/31/2011 IVÁN WATER HAULER, TEQUILA V73.81 Visit For: Screening Exam For Human Papillomavirus (hpv) 08/31/2011 IVÁN WATER HAULER, TEQUILA V76.2 Cervical Pap Smear 08/31/2011 IVÁN WATER HAULER, TEQUILA 275.2 Hypomagnesemia 08/31/2011 IVÁN WATER HAULER, TEQUILA 276.8 Hypokalemia 08/31/2011 IVÁN WATER HAULER, TEQUILA V04.81 Vaccines Prophylactic Need Against Influenza 08/31/2011 IVÁN WATER HAULER, TEQUILA V73.81 Visit For: Screening Exam For Human Papillomavirus (hpv) 08/31/2011 IVÁN WATER HAULER, TEQUILA V76.2 Cervical Pap Smear 08/31/2011 IVÁN WATER HAULER, TEQUILA 275.2 Hypomagnesemia 08/31/2011 IVÁN WATER HAULER, TEQUILA 276.8 Hypokalemia 08/31/2011 IVÁN WATER HAULER, TEQUILA V04.81 Vaccines Prophylactic Need Against Influenza 08/31/2011 IVÁN WATER HAULER, TEQUILA V73.81 Visit For: Screening Exam For Human Papillomavirus (hpv) 08/31/2011 IVÁN WATER HAULER, TEQUILA V76.2 Cervical Pap Smear 08/31/2011 SP WATER HAULER, TREVER S 275.2 Hypomagnesemia 08/31/2011 SP WATER HAULER, TREVER S 276.8 Hypokalemia 08/31/2011 SP WATER HAULER, TREVER S V04.81 Vaccines Prophylactic Need Against Influenza 08/31/2011 SP WATER HAULER, TREVER S V73.81 Visit For: Screening Exam For Human Papillomavirus (hpv) 08/31/2011 SP WATER HAULER, TREVER S V76.2 Cervical Pap Smear 08/31/2011 IVÁN WATER HAULER, TEQUILA 275.2 Hypomagnesemia 08/31/2011 IVÁN WATER HAULER, TEQUILA 276.8 Hypokalemia 08/31/2011 IVÁN WATER HAULER, TEQUILA V04.81 Vaccines Prophylactic Need Against Influenza 08/31/2011 IVÁN WATER HAULER, TEQUILA V73.81 Visit For: Screening Exam For Human Papillomavirus (hpv) 08/31/2011 IVÁN WATER HAULER, TEQUILA V76.2 Cervical Pap Smear 08/31/2011 IVÁN WATER HAULER, TEQUILA 275.2 Hypomagnesemia 08/31/2011 IVÁN WATER HAULER, TEQUILA 276.8 Hypokalemia 08/31/2011 IVÁN WATER HAULER, TEQUILA V04.81 Vaccines Prophylactic Need Against Influenza 08/31/2011 IVÁN WATER HAULER, TEQUILA V73.81 Visit For: Screening Exam For Human Papillomavirus (hpv) 08/31/2011 IVÁN WATER HAULER, TEQUILA V76.2 Cervical Pap Smear 08/31/2011 IVÁN WATER HAULER, TEQUILA 275.2 Hypomagnesemia 08/31/2011 IVÁN WATER HAULER, TEQUILA 276.8 Hypokalemia 08/31/2011 IVÁN WATER HAULER, TEQUILA V04.81 Vaccines Prophylactic Need Against Influenza 08/31/2011 IVÁN WATER HAULER, TEQUILA V73.81 Visit For: Screening Exam For Human Papillomavirus (hpv) 08/31/2011 IVÁN WATER HAULER, TEQUILA V76.2 Cervical Pap Smear 08/31/2011 SP WATER HAULER, TREVER S 275.2 Hypomagnesemia 08/31/2011 SP WATER HAULER, TREVER S 276.8 Hypokalemia 08/31/2011 SP WATER HAULER, TREVER S V04.81 Vaccines Prophylactic Need Against Influenza 08/31/2011 SP WATER HAULER, TREVER S V73.81 Visit For: Screening Exam For Human Papillomavirus (hpv) 08/31/2011 SP WATER HAULER, TREVER S V76.2 Cervical Pap Smear 08/31/2011 IVÁN WATER HAULER, TEQUILA 275.2 Hypomagnesemia 08/31/2011 IVÁN WATER HAULER, TEQUILA 276.8 Hypokalemia 08/31/2011 IVÁN WATER HAULER, TEQUILA V04.81 Vaccines Prophylactic Need Against Influenza 08/31/2011 IVÁN WATER HAULER, TEQUILA V73.81 Visit For: Screening Exam For Human Papillomavirus (hpv) 08/31/2011 IVÁN WATER HAULER, TEQUILA V76.2 Cervical Pap Smear 09/14/2011 Ot 682.3 01/30/2012 ACRREON DO, CORTEZ K 455.6 HEMORRHOIDS NOS 01/30/2012 [...] LOYA APRN 455.6 HEMORRHOIDS NOS 01/30/2012 IVÁN WATER HAULER, TEQUILA 455.6 HEMORRHOIDS NOS 01/30/2012 IVÁN WATER HAULER, TEQUILA 455.6 HEMORRHOIDS NOS 01/30/2012 IVÁN WATER HAULER, TEQUILA 455.6 HEMORRHOIDS NOS 01/30/2012 IVÁN WATER HAULER, TEQUILA 455.6 HEMORRHOIDS NOS 01/30/2012 IVÁN WATER HAULER, TEQUILA 455.6 HEMORRHOIDS NOS 01/30/2012 SPJAYCOB LEZAMA APRNA S 455.6 HEMORRHOIDS NOS 01/30/2012 IVÁN WATER HAULER, TEQUILA 455.6 HEMORRHOIDS NOS 01/30/2012 IVÁN WATER HAULER, TEQUILA 455.6 HEMORRHOIDS NOS 01/30/2012 IVÁN WATER HAULER, TEQUILA 455.6 HEMORRHOIDS NOS 01/30/2012 SAMANTHA SNOWDEN APRNNDA S 455.6 HEMORRHOIDS NOS 01/30/2012 IVÁN WATER HAULER, TEQUILA 455.6 HEMORRHOIDS NOS 03/30/2012 CARREON DO, CORTEZ K 528.6 ORAL LEUKOPLAKIA 03/30/2012 528.6 ORAL LEUKOPLAKIA 03/30/2012 CARREON DO CORTEZ K 528.6 ORAL LEUKOPLAKIA 03/30/2012 CARREON DO, CORTEZ K 528.6 ORAL LEUKOPLAKIA 03/30/2012 MORAIMA LOYA APRN 528.6 ORAL LE[place]OPLAKIA 03/30/2012 LYNDSAY RASHEED MD 528.6 ORAL LE[place]OPLAKIA 03/30/2012 MORAIMA LOYA APRN 528.6 ORAL [place] 03/30/2012 528.6 ORAL LEUKOPLAKIA 03/30/2012 MORAIMA LOYA APRN 528.6 ORAL LE[place]OPLAKIA 03/30/2012 MORAIMA LOYA APRN 528.6 ORAL [place]OPLA[place]IA 03/30/2012 IVÁN WATER HAULER, TEQUILA 528.6 ORAL LEUKOPLAKIA 03/30/2012 IVÁN WATER HAULER, TEQUILA 528.6 ORAL LEUKOPLAKIA 03/30/2012 IVÁN WATER HAULER, TEQUILA 528.6 ORAL LEUKOPLAKIA 03/30/2012 IVÁN WATER HAULER, TEQUILA 528.6 ORAL LEUKOPLAKIA 03/30/2012 IVÁN WATER HAULER, TEQUILA 528.6 ORAL LEUKOPLAKIA 03/30/2012 TREVER SNOWDEN APRN S 528.6 ORAL LEUKOPLAKIA 03/30/2012 IVÁN WATER HAULER, TEQUILA 528.6 ORAL LEUKOPLAKIA 03/30/2012 IVÁN WATER HAULER, TEQUILA 528.6 ORAL LEUKOPLAKIA 03/30/2012 IVÁN WATER HAULER, TEQUILA 528.6 ORAL LEUKOPLAKIA 03/30/2012 TREVER SNOWDEN APRN S 528.6 ORAL LEUKOPLAKIA 03/30/2012 IVÁN WATER HAULER, TEQUILA 528.6 ORAL LEUKOPLAKIA 06/06/2012 CORTEZ CARREON DO K 780.8 GENERALIZED HYPERHIDROSIS 06/06/2012 780.8 GENERALIZED HYPERHIDROSIS 06/06/2012 CORTEZ CARREON DO K 780.8 GENERALIZED HYPERHIDROSIS 06/06/2012 CORTEZ CARREON DO K 780.8 GENERALIZED HYPERHIDROSIS 06/06/2012 MORAIMA LOYA APRN 780.8 GENERALIZED HYPERHIDROSIS 06/06/2012 LYNDSAY RASHEED MD 780.8 GENERALIZED HYPERHIDROSIS 06/06/2012 MORAIMA LOYA APRN 780.8 GENERALIZED HYPERHIDROSIS 06/06/2012 780.8 GENERALIZED HYPERHIDROSIS 06/06/2012 MORAIMA LOYA APRN 780.8 GENERALIZED HYPERHIDROSIS 06/06/2012 MORAIMA LOYA APRN 780.8 GENERALIZED HYPERHIDROSIS 06/06/2012 IVÁN WATER HAULER, TEQUILA 780.8 GENERALIZED HYPERHIDROSIS 06/06/2012 IVÁN WATER HAULER, TEQUILA 780.8 GENERALIZED HYPERHIDROSIS 06/06/2012 IVÁN WATER HAULER, TEQUILA 780.8 GENERALIZED HYPERHIDROSIS 06/06/2012 IVÁN WATER HAULER, TEQUILA 780.8 GENERALIZED HYPERHIDROSIS 06/06/2012 IVÁN WATER HAULER, TEQUILA 780.8 GENERALIZED HYPERHIDROSIS 06/06/2012 SP WATER HAULER, TREVER S 780.8 GENERALIZED HYPERHIDROSIS 06/06/2012 IVÁN WATER HAULER, TEQUILA 780.8 GENERALIZED HYPERHIDROSIS 06/06/2012 IVÁN WATER HAULER, TEQUILA 780.8 GENERALIZED HYPERHIDROSIS 06/06/2012 IVÁN WATER HAULER, TEQUILA 780.8 GENERALIZED HYPERHIDROSIS 06/06/2012 SP WATER HAULER, TREVER S 780.8 GENERALIZED HYPERHIDROSIS 06/06/2012 IVÁN WATER HAULER, TEQUILA 780.8 GENERALIZED HYPERHIDROSIS 08/01/2012 CARREON DO, CORTEZ K 780.4 DIZZINESS AND VERTIGO 08/01/2012 CARREON DO, CORTEZ K 788.1 DYSURIA 08/01/2012 780.4 DIZZINESS AND VERTIGO 08/01/2012 788.1 DYSURIA 08/01/2012 CARREON DO, CORTEZ K 780.4 DIZZINESS AND VERTIGO 08/01/2012 CARREON DO, CORTEZ K 788.1 DYSURIA 08/01/2012 CARREON DO CORTEZ K 780.4 DIZZINESS AND VERTIGO 08/01/2012 CARREON DO, CORTEZ K 788.1 DYSURIA 08/01/2012 MORAIMA LOYA APRN 780.4 DIZZINESS AND VERTIGO 08/01/2012 MORAIMA LOYA APRN 788.1 DYSURIA 08/01/2012 LYNDSAY RASHEED MD 780.4 DIZZINESS AND VERTIGO 08/01/2012 LYNDSAY RASHEED MD 788.1 DYSURIA 08/01/2012 MORAIMA LOYA APRN 780.4 DIZZINESS AND VERTIGO 08/01/2012 MORAIMA LOYA APRN 788.1 DYSURIA 08/01/2012 780.4 DIZZINESS AND VERTIGO 08/01/2012 788.1 DYSURIA 08/01/2012 GARTON WATER HAULER, MORAIMA D 780.4 DIZZINESS AND VERTIGO 08/01/2012 GARTON WATER HAULER, MORAIMA D 788.1 DYSURIA 08/01/2012 GARTON WATER HAULER, MORAIMA D 780.4 DIZZINESS AND VERTIGO 08/01/2012 GARTON WATER HAULER, MORAIMA D 788.1 DYSURIA 08/01/2012 IVÁN WATER HAULER, TEQUILA 780.4 DIZZINESS AND VERTIGO 08/01/2012 IVÁN WATER HAULER, TEQUILA 788.1 DYSURIA 08/01/2012 IVÁN WATER HAULER, TEQUILA 780.4 DIZZINESS AND VERTIGO 08/01/2012 IVÁN WATER HAULER, TEQUILA 788.1 DYSURIA 08/01/2012 IVÁN WATER HAULER, TEQUILA 780.4 DIZZINESS AND VERTIGO 08/01/2012 IVÁN WATER HAULER, TEQUILA 788.1 DYSURIA 08/01/2012 IVÁN WATER HAULER, TEQUILA 780.4 DIZZINESS AND VERTIGO 08/01/2012 IVÁN WATER HAULER, TEQUILA 788.1 DYSURIA 08/01/2012 IVÁN WATER HAULER, TEQUILA 780.4 DIZZINESS AND VERTIGO 08/01/2012 IVÁN WATER HAULER, TEQUILA 788.1 DYSURIA 08/01/2012 SP WATER HAULER, TREVER S 780.4 DIZZINESS AND VERTIGO 08/01/2012 SP WATER HAULER, TREVER S 788.1 DYSURIA 08/01/2012 IVÁN WATER HAULER, TEQUILA 780.4 DIZZINESS AND VERTIGO 08/01/2012 IVÁN WATER HAULER, TEQUILA 788.1 DYSURIA 08/01/2012 IVÁN WATER HAULER, TEQUILA 780.4 DIZZINESS AND VERTIGO 08/01/2012 IVÁN WATER HAULER, TEQUILA 788.1 DYSURIA 08/01/2012 IVÁN WATER HAULER, TEQUILA 780.4 DIZZINESS AND VERTIGO 08/01/2012 IVÁN WATER HAULER, TEQUILA 788.1 DYSURIA 08/01/2012 SP WATER HAULER, TREVER S 780.4 DIZZINESS AND VERTIGO 08/01/2012 SP WATER HAULER, TREVER S 788.1 DYSURIA 08/01/2012 IVÁN WATER HAULER, TEQUILA 780.4 DIZZINESS AND VERTIGO 08/01/2012 TEQUILA MINOR APRN 788.1 DYSURIA 10/24/2012 CARREON BERTA K 705.83 HIDRADENITIS 10/24/2012 LAURI HERNADEZCORTEZ K V76.10 BREAST CANCER SCREENING 10/24/2012 CARREON , CORTEZ K V76.2 CERVICAL CANCER SCREENING (PAP SMEAR) 10/24/2012 MORAIMA LOYA APRN 705.83 HIDRADENITIS 10/24/2012 MORAIMA LOYA APRN V76.10 BREAST CANCER SCREENING 10/24/2012 MORAIMA LOYA APRN V76.2 CERVICAL CANCER SCREENING (PAP SMEAR) 10/24/2012 LYNDSAY RASHEED MD 705.83 HIDRADENITIS 10/24/2012 LYNDSAY RASHEED MD V76.10 BREAST CANCER SCREENING 10/24/2012 LYNDSAY RSAHEED MD V76.2 CERVICAL CANCER SCREENING (PAP SMEAR) [...] APRN V76.10 BREAST CANCER SCREENING 10/24/2012 IVÁN WATER HAULER, TEQUILA V76.2 CERVICAL CANCER SCREENING (PAP SMEAR) 10/24/2012 IVÁN WATER HAULER, TEQUILA 705.83 HIDRADENITIS 10/24/2012 IVÁN WATER HAULER, TEQUILA V76.10 BREAST CANCER SCREENING 10/24/2012 IVÁN WATER HAULER, TEQUILA V76.2 CERVICAL CANCER SCREENING (PAP SMEAR) 10/24/2012 IVÁN WATER HAULER, TQEUILA 705.83 HIDRADENITIS 10/24/2012 IVÁN WATER HAULER, TEQUILA V76.10 BREAST CANCER SCREENING 10/24/2012 IVÁN WATER HAULER, TEQUILA V76.2 CERVICAL CANCER SCREENING (PAP SMEAR) 10/24/2012IVÁN WATER HAULER, TEQUILA 705.83 HIDRADENITIS 10/24/2012 IVÁN WATER HAULER, TEQUILA V76.10 BREAST CANCER SCREENING 10/24/2012 IVÁN WATER HAULER, TEQUILA V76.2 CERVICAL CANCER SCREENING (PAP SMEAR) 10/24/2012 IVÁN WATER HAULER, TEQUILA 705.83 HIDRADENITIS 10/24/2012 IVÁN WATER HAULER, TEQUILA V76.10 BREAST CANCER SCREENING 10/24/2012 [facility] WATER HAULER, TEQUILA V76.2 CERVICAL CANCER SCREENING (PAP SMEAR) 10/24/2012 SP HARRIS TREVER S 705.83 HIDRADENITIS 10/24/2012 SP HARRIS, TREVRE S V76.10 BREAST CANCER SCREENING 10/24/2012 SP HARRIS TREVER S V76.2 CERVICAL CANCER SCREENING (PAP SMEAR) 10/24/2012 IVÁN WATER HAULER, TEQUILA 705.83 HIDRADENITIS 10/24/2012 IVÁN WATER HAULER, TEQUILA V76.10 BREAST CANCER SCREENING 10/24/2012 IVÁN WATER HAULER, TEQUILA V76.2 CERVICAL CANCER SCREENING (PAP SMEAR) 10/24/2012 IVÁN WATER HAULER, TEQUILA 705.83 HIDRADENITIS 10/24/2012 IVÁN WATER HAULER, TEQUILA V76.10 BREAST CANCER SCREENING 10/24/2012 IVÁN WATER HAULER, TEQUILA V76.2 CERVICAL CANCER SCREENING (PAP SMEAR) 10/24/2012 IVÁN WATER HAULER, TEQUILA 705.83 HIDRADENITIS 10/24/2012 IVÁN WATER HAULER, TEQUILA V76.10 BREAST CANCER SCREENING 10/24/2012 TEQUILA MINOR APRN V76.2 CERVICAL CANCER SCREENING (PAP SMEAR) 10/24/2012 TREVER SNOWDEN APRN S 705.83 HIDRADENITIS 10/24/2012 JAYCOB SNOWDEN APRNA S V76.10 BREAST CANCER SCREENING 10/24/2012 JAYCOB SNOWDEN APRNA S V76.2 CERVICAL CANCER SCREENING (PAP SMEAR) [...] AN PANIC DIS W AG[place] 07/06/2013 IVÁN WATER HAULER, TEQUILA 296.33 MO DEPRESSIVE RECURRENT SEVERE W/O PSYCHOTIC BEHAVIOR 07/06/2013 IVÁN HARRIS TEQUILA 300.21 AN PANIC DIS W [place] 07/06/2013 IVÁN HARRIS TEQUILA 296.33 MO DEPRESSIVE RECURRENT SEVERE W/O PSYCHOTIC BEHAVIOR 07/06/2013 IVÁN HARRIS TEQUILA 300.21 AN PANIC DIS W [place] 07/06/2013 SP HARRIS TREVER S 296.33 MO DEPRESSIVE RECURRENT SEVERE W/O [...] 300.21 AN PANIC DIS W AGORA 07/06/2013 SP HARRIS TREVER S 296.33 MO DEPRESSIVE RECURRENT SEVERE W/O PSYCHOTIC BEHAVIOR 07/06/2013 SP HARRIS TREVER S 300.21 AN PANIC DIS W [place] 07/06/2013 IVÁN HARRIS TEQUILA 296.33 MO DEPRESSIVE RECURRENT SEVERE W/O PSYCHOTIC BEHAVIOR 07/06/2013 IVÁN HARRIS TEQUILA 300.21 AN PANIC DIS W [place] 08/15/2013 KATHYA WEBSTER, LYNDSAY 780.79 fatigue 08/15/2013 MORAIMA LOYA APRN 780.79 fatigue 08/15/2013 780.79 fatigue 08/15/2013 MORAIMA LOYA APRN 780.79 fatigue 08/15/2013 MORAIMA LOYA APRN 780.79 fatigue 08/15/2013 IVÁN WATER HAULER, TEQUILA 780.79 fatigue 08/15/2013 IVÁN WATER HAULER, TEQUILA 780.79 fatigue 08/15/2013 IVÁN WATER HAULER, TEQUILA 780.79 FATIGUE 08/15/2013 IVÁN WATER HAULER, TEQUILA 780.79 FATIGUE 08/15/2013 IVÁN WATER HAULER, TEQUILA 780.79 FATIGUE 08/15/2013 SP WATER HAULER, TREVER S 780.79 FATIGUE 08/15/2013 IVÁN WATER HAULER, TEQUILA 780.79 FATIGUE 08/15/2013 IVÁN WATER HAULER, TEQUILA 780.79 FATIGUE 08/15/2013 IVÁN WATER HAULER, TEQUILA 780.79 FATIGUE 08/15/2013 SP WATER HAULER, TREVER S 780.79 FATIGUE 08/15/2013 IVÁN WATER HAULER, TEQUILA 780.79 FATIGUE 04/26/2014 IVÁN WATER HAULER, TEQUILA 296.32 MO DEPRESSIVE RECURRENT MODERATE 04/26/2014 IVÁN WATER HAULER, TEQUILA 296.32 MO DEPRESSIVE RECURRENT MODERATE 04/26/2014 IVÁN WATER HAULER, TEQUILA 296.32 MO DEPRESSIVE RECURRENT MODERATE 04/26/2014 IVÁN WATER HAULER, TEQUILA 296.32 MO DEPRESSIVE RECURRENT MODERATE 04/26/2014 IVÁN WATER HAULER, TEQUILA 296.32 MO DEPRESSIVE RECURRENT MODERATE 04/26/2014 SP WATER HAULER, TREVER S 296.32 MO DEPRESSIVE RECURRENT MODERATE 04/26/2014 IVÁN WATER HAULER, TEQUILA 296.32 MO DEPRESSIVE RECURRENT MODERATE 04/26/2014 IVÁN WATER HAULER, TEQUILA 296.32 MO DEPRESSIVE RECURRENT MODERATE 04/26/2014 IVÁN WATER HAULER, TEQUILA 296.32 MO DEPRESSIVE RECURRENT MODERATE 04/26/2014 SP WATER HAULER, TREVER S 296.32 MO DEPRESSIVE RECURRENT MODERATE 04/26/2014 IVÁN WATER HAULER, TEQUILA 296.32 MO DEPRESSIVE RECURRENT MODERATE 09/25/2014 IVÁN WATER HAULER, TEQUILA 723.1 PAIN NECK 09/25/2014 IVÁN WATER HAULER, TEQUILA 724.1 PAIN IN THORACIC SPINE 09/25/2014 SP WATER HAULER, TREVER S 723.1 PAIN NECK 09/25/2014 SP WATER HAULER, TREVER S 724.1 PAIN IN THORACIC SPINE 09/25/2014 IVÁN WATER HAULER, TEQUILA 723.1 PAIN NECK 09/25/2014 IVÁN WATER HAULER, TEQUILA 724.1 PAIN IN THORACIC SPINE 09/25/2014 IVÁN WATER HAULER, TEQUILA 723.1 PAIN NECK 09/25/2014 IVÁN WATER HAULER, TEQUILA 724.1 PAIN IN THORACIC SPINE 09/25/2014 IVÁN WATER HAULER, TEQUILA 723.1 PAIN NECK 09/25/2014 IVÁN WATER HAULER, TEQUILA 724.1 PAIN IN THORACIC SPINE 09/25/2014 SP WATER HAULER, TREVER S 723.1 PAIN NECK 09/25/2014 SP WATER HAULER, TREVER S 724.1 PAIN IN THORACIC SPINE 09/25/2014 IVÁN WATER HAULER, TEQUILA 723.1 PAIN NECK 09/25/2014 IVÁN WATER HAULER, TEQUILA 724.1 PAIN IN THORACIC SPINE 10/14/2014 HOA CAIN DO Ot 465.9 10/14/2014 HOA CAIN DO Ot 466.0 10/19/2014 TREVER SNOWDEN COPY OPERATOR Ot V76.12 10/30/2014 SPJAYCOB HURTADOA COPY OPERATOR Ot V76.12 11/27/2014 IVÁN WATER HAULER, TEQUILA 783.1 WEIGHT GAIN ABNORMAL 11/27/2014 SAMANTHA SNOWDEN APRNNDA S 783.1 WEIGHT GAIN ABNORMAL 11/27/2014 IVÁN WATER HAULER, TEQUILA 783.1 WEIGHT GAIN ABNORMAL 01/01/2015 SAMANTHA SNOWDEN APRNNDA S 780.60 FEVER, UNSPECIFIED 01/01/2015 SAMANTHA SNOWDEN APRNNDA S 786.2 COUGH 01/01/2015 IVÁN WATER HAULER, TEQUILA 780.60 FEVER, UNSPECIFIED 01/01/2015 IVÁN WATER HAULER, TEQUILA 786.2 COUGH 01/06/2015 BAYLEE WEBSTER, LEEANN Simms Ot 305.1 01/06/2015 BAYLEE WEBSTER, LEEANN Simms Ot 490 01/06/2015 BAYLEE WEBSTER, LEEANN Simms Ot 729.1 01/06/2015 BYALEE WEBSTER, LEEANN Simms Ot 729.82 03/21/2015 Ot [...] MULT SITE W 01/31/2016 Ot Z79.899 OTHER CHANGER FIXER (CURRENT) DRUG THERAPY 02/07/2016 Ot M05.79 RHEU ARTHRITIS W RHEU FACTOR MULT SITE W 02/07/2016 Ot Z79.899 OTHER CHANGER FIXER (CURRENT) DRUG THERAPY 05/14/2016 CHRIS WEBSTER, GLENN Sims Ot E78.5 HYPERLIPIDEMIA, UNSPECIFIED 05/14/2016 GLENN PEREZ MD Ot E87.6 HYPOKALEMIA 05/14/2016 GLENN PEREZ MD Ot F17.210 NICOTINE DEPENDENCE, CIGARETTES, UNCOMPL 05/14/2016 GLENN PEREZ MD Ot G62.9 POLYNEUROPATHY, UNSPECIFIED 05/14/2016 GLENN PEREZ MD Ot I10 ESSENTIAL (PRIMARY) HYPERTENSION 05/14/2016 LGENN PEREZ MD Ot I25.10 ATHSCL HEART DISEASE OF [place] CORONARY 05/14/2016 GLENN PEREZ MD Ot M06.9 RHEUMATOID ARTHRITIS, UNSPECIFIED 05/14/2016 GLENN PEREZ MD Ot N39.0 URINARY TRACT INFECTION, SITE NOT SPECIF 05/14/2016 GLENN PEREZ MD Ot R00.0 TACHYCARDIA, UNSPECIFIED 05/14/2016 GLENN PEREZ MD Ot R11.0 NAUSEA 05/14/2016 GLENN PEREZ MD Ot R19.7 DIARRHEA, UNSPECIFIED 09/23/2016 TREVER SNOWDEN Ot Z12.39 ENCOUNTER FOR OTH SCREENING FOR MALIGNAN 09/23/2016 TREVER SNOWDENP Ot Z12.31 ENCNTR SCREEN MAMMOGRAM FOR MALIGNANT NE 10/20/2016 TREVER SNOWDEN COPY OPERATOR Ot Z12.31 ENCNTR SCREEN MAMMOGRAM FOR MALIGNANT NE 10/26/2016 TREVER SNOWDENP Ot Z12.31 ENCNTR SCREEN MAMMOGRAM FOR MALIGNANT NE 10/26/2016 TREVER SNOWDENP Ot Z12.31 ENCNTR SCREEN MAMMOGRAM FOR MALIGNANT NE 10/28/2016 TREVER SNOWDEN COPY OPERATOR Ot Z12.31 ENCNTR SCREEN MAMMOGRAM FOR MALIGNANT NE 01/29/2017 ANGIE LASSITER Ot I10 ESSENTIAL (PRIMARY) HYPERTENSION 01/29/2017 ANGIE LASSITER Ot I25.10 ATHSCL HEART DISEASE OF [place] CORONARY 01/29/2017 ANGIE LASSITER Ot K21.9 GASTRO-ESOPHAGEAL REFLUX DISEASE WITHOUT 01/29/2017 ANGIE LASSITER Ot R55 SYNCOPE AND COLLAPSE 02/22/2017 NAGIE LASSITER Ot I10 ESSENTIAL (PRIMARY) HYPERTENSION 02/22/2017 ANGIE LASSITER Ot I25.10 ATHSCL HEART DISEASE OF [place] CORONARY 02/22/2017 ANGIE LASSITER Ot K21.9 GASTRO-ESOPHAGEAL REFLUX DISEASE WITHOUT 02/22/2017 ANGIE LASSITER Ot R55 SYNCOPE AND COLLAPSE 03/08/2017 ANGIE LASSITER Ot I10 ESSENTIAL (PRIMARY) HYPERTENSION 03/08/2017 ANGIE LASSITER Ot I25.10 ATHSCL HEART DISEASE OF [place] CORONARY 03/08/2017 ANGIE LASSITER Ot K21.9 GASTRO-ESOPHAGEAL REFLUX DISEASE WITHOUT 03/08/2017 ANGIE LASSITER Ot R55 SYNCOPE AND COLLAPSE 03/30/2017 ORLANDO HOFFMAN MD, Ot M75.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 03/30/2017 ORLANDO HOFFMAN MD, Ot Z01.818 ENCOUNTER FOR OTHER PREPROCEDURAL EXAMIN 03/31/2017 ORLANDO HOFFMAN MD, Ot E78.00 PURE HYPERCHOLESTEROLEMIA, UNSPECIFIED 03/31/2017 ORLANDO HOFFMAN MD, Ot F32.9 MAJOR DEPRESSIVE DISORDER, SINGLE EPISOD 03/31/2017 ORLANDO HOFFMAN MD, Ot F41.9 ANXIETY DISORDER, UNSPECIFIED 03/31/2017 ORLANDO HOFFMAN MD, Ot G47.33 OBSTRUCTIVE SLEEP APNEA (ADULT) (PEDIATR 03/31/2017 ORLANDO HOFFMAN MD Ot I10 ESSENTIAL (PRIMARY) HYPERTENSION 03/31/2017 ORLANDO HOFFMAN MD, Ot I25.10 ATHSCL HEART DISEASE OF [place] CORONARY 03/31/2017 ORLANDO HOFFMAN MD Ot J45.909 UNSPECIFIED ASTHMA, UNCOMPLICATED 03/31/2017 ORLANDO HOFFMAN MD, Ot K21.9 GASTRO-ESOPHAGEAL REFLUX DISEASE WITHOUT 03/31/2017 ORLANDO HOFFMAN MD Ot M06.9 RHEUMATOID ARTHRITIS, UNSPECIFIED 03/31/2017 ORLANDO HOFFMAN MD Ot M19.90 UNSPECIFIED OSTEOARTHRITIS, UNSPECIFIED 03/31/2017 ORLANDO HOFFMAN MD Ot M75.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 03/31/2017 ORLANDO HOFFMAN MD Ot M81.0 AGE-RELATED OSTEOPOROSIS W/O CURRENT PAT 03/31/2017 ORLANDO HOFFMAN MD, Ot Z11.2 ENCOUNTER FOR SCREENING FOR OTHER BACTER 03/31/2017 ORLANDO HOFFMAN MD, Ot Z79.899 OTHER CHANGER FIXER (CURRENT) DRUG THERAPY 03/31/2017 ORLANDO HOFFMAN MD, Ot Z86.73 PRSNL HX OF TIA (TIA), AND CEREB INFRC W 03/31/2017 ORLANDO HOFFMAN MD, Ot Z87.891 PERSONAL HISTORY OF NICOTINE DEPENDENCE 04/06/2017 ORLANDO HOFFMAN MD, Ot E78.00 PURE HYPERCHOLESTEROLEMIA, UNSPECIFIED 04/06/2017 ORLANDO HOFFMAN MD, Ot F32.9 MAJOR DEPRESSIVE DISORDER, SINGLE EPISOD 04/06/2017 ORLANDO HOFFMAN MD, Ot F41.9 ANXIETY DISORDER, UNSPECIFIED 04/06/2017 ORLANDO HOFFMAN MD, Ot G47.33 OBSTRUCTIVE SLEEP APNEA (ADULT) (PEDIATR 04/06/2017 ORLANDO HOFFMAN MD, Ot I10 ESSENTIAL (PRIMARY) HYPERTENSION 04/06/2017 ORLANDO HOFFMAN MD, Ot I25.10 ATHSCL HEART DISEASE OF [place] CORONARY 04/06/2017 ORLANDO HOFFMAN MD, Ot J45.909 UNSPECIFIED ASTHMA, UNCOMPLICATED 04/06/2017 ORLANDO HOFFMAN MD, Ot K21.9 GASTRO-ESOPHAGEAL REFLUX DISEASE WITHOUT 04/06/2017 ORLANDO HOFFMAN MD, Ot M06.9 RHEUMATOID ARTHRITIS, UNSPECIFIED 04/06/2017 ORLANDO HOFFMAN MD, Ot M19.90 UNSPECIFIED OSTEOARTHRITIS, UNSPECIFIED 04/06/2017 ORLANDO HOFFMAN MD, Ot M75.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 04/06/2017 ORLANDO HOFFMAN MD, Ot M81.0 AGE-RELATED OSTEOPOROSIS W/O CURRENT PAT 04/06/2017 ORLANDO HOFFMAN MD, Ot Z11.2 ENCOUNTER FOR SCREENING FOR OTHER BACTER 04/06/2017 ORLANDO HOFFMAN MD, Ot Z79.899 OTHER CHANGER FIXER (CURRENT) DRUG THERAPY 04/06/2017 ORLANDO HOFFMAN MD, Ot Z86.73 PRSNL HX OF TIA (TIA), AND CEREB INFRC W 04/06/2017 ORLANDO HOFFMAN MD, Ot Z87.891 PERSONAL HISTORY OF NICOTINE DEPENDENCE 05/10/2017 CHELSI CORDOBA MD Ot E78.5 HYPERLIPIDEMIA, UNSPECIFIED 05/10/2017 CHELSI CORDOBA MD E Ot F17.210 NICOTINE DEPENDENCE, CIGARETTES, UNCOMPL 05/10/2017 CHELSI CORDOBA MD Ot F32.9 MAJOR DEPRESSIVE DISORDER, SINGLE EPISOD 05/10/2017 CHELSI CORDOBA MD Ot G47.30 SLEEP APNEA, UNSPECIFIED 05/10/2017 CHELSI CORDOBA MD Ot I10 ESSENTIAL (PRIMARY) HYPERTENSION 05/10/2017 CHELSI CORDOBA MD E Ot I69.322 DYSARTHRIA FOLLOWING CEREBRAL INFARCTION 05/10/2017 CHELSI CORDOBA MD E Ot I69.354 HEMIPLGA FOLLOWING CEREBRAL INFRC AFFECT 05/10/2017 CHELSI CORDOBA MD Ot J44.9 CHRONIC OBSTRUCTIVE PULMONARY DISEASE, U 05/10/2017 CHELSI CORDOBA MD E Ot J45.909 UNSPECIFIED ASTHMA, UNCOMPLICATED 05/10/2017 CHELSI CORDOBA MD E Ot K21.9 GASTRO-ESOPHAGEAL REFLUX DISEASE WITHOUT 05/10/2017 CHELSI CORDOBA MD E Ot M06.9 RHEUMATOID ARTHRITIS, UNSPECIFIED 05/10/2017 CHELSI CORDOBA MD E Ot M19.91 PRIMARY OSTEOARTHRITIS, UNSPECIFIED SITE 05/10/2017 CHELSI CORDOBA MD E Ot M75.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 05/10/2017 CHELSI CORDOBA MD E Ot N39.3 STRESS INCONTINENCE (FEMALE) (MALE) 08/26/2017 GLENN PEREZ MD Ot E66.01 MORBID (SEVERE) OBESITY DUE TO EXCESS CA 08/26/2017 GLENN PEREZ MD Ot E78.00 PURE HYPERCHOLESTEROLEMIA, UNSPECIFIED 08/26/2017 GLENN PEREZ MD Ot F17.210 NICOTINE DEPENDENCE, CIGARETTES, UNCOMPL 08/26/2017 GLENN PEREZ MD Ot F32.9 MAJOR DEPRESSIVE DISORDER, SINGLE EPISOD 08/26/2017 GLENN PEREZ MD Ot F40.00 AGORAPHOBIA, UNSPECIFIED 08/26/2017 GLENN PEREZ MD Ot F41.9 ANXIETY DISORDER, UNSPECIFIED 08/26/2017 GLENN PEREZ MD Ot G47.33 OBSTRUCTIVE SLEEP APNEA (ADULT) (PEDIATR 08/26/2017 GLENN PEREZ MD Ot G81.94 HEMIPLEGIA, UNSPECIFIED AFFECTING LEFT N 08/26/2017 GLENN PEREZ MD, Ot I10 ESSENTIAL (PRIMARY) HYPERTENSION 08/26/2017 GLENN PEREZ MD Ot 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 08/26/2017 GLENN PEERZ MD Ot I69.354 HEMIPLGA FOLLOWING CEREBRAL INFRC AFFECT 08/26/2017 GLENN PEREZ MD, Ot J44.9 CHRONIC OBSTRUCTIVE PULMONARY DISEASE, U 08/26/2017 GLENN PEREZ MD, Ot K21.9 GASTRO-ESOPHAGEAL REFLUX DISEASE WITHOUT 08/26/2017 GLENN PEREZ MD, Ot K58.9 IRRITABLE BOWEL SYNDROME WITHOUT DIARRHE 08/26/2017 GLENN PEREZ MD, Ot K59.09 OTHER CONSTIPATION 08/26/2017 GLENN PEREZ MD, Ot M06.9 RHEUMATOID ARTHRITIS, UNSPECIFIED 08/26/2017 GLENN PEREZ MD, Ot M19.91 PRIMARY OSTEOARTHRITIS, UNSPECIFIED SITE 08/26/2017 GLENN PEREZ MD, Ot M54.9 DORSALGIA, UNSPECIFIED 08/26/2017 GLENN PEREZ MD Ot R32 UNSPECIFIED URINARY INCONTINENCE 08/26/2017 GLENN PEREZ MD, Ot R47.81 SLURRED SPEECH 08/26/2017 GLENN PEREZ MD Ot Z68.34 BODY MASS INDEX (BMI) 34.0-34.9, ADULT 08/26/2017 GLENN PEREZ MD, Ot Z96.0 PRESENCE OF UROGENITAL IMPLANTS 08/26/2017 GLENN PEREZ MD Ot E66.01 MORBID (SEVERE) OBESITY DUE TO EXCESS CA 08/26/2017 GLENN PEREZ MD Ot E78.00 PURE HYPERCHOLESTEROLEMIA, UNSPECIFIED 08/26/2017 GLENN PEREZ MD, Ot E78.5 HYPERLIPIDEMIA, UNSPECIFIED 08/26/2017 GLENN PEREZ MD Ot E87.6 HYPOKALEMIA 08/26/2017 GLENN PEREZ MD, Ot E88.81 METABOLIC SYNDROME 08/26/2017 GLENN PEREZ MD Ot F17.210 NICOTINE DEPENDENCE, CIGARETTES, UNCOMPL 08/26/2017 GLENN PEREZ MD Ot F32.9 MAJOR DEPRESSIVE DISORDER, SINGLE EPISOD 08/26/2017 GLENN PEREZ MD, Ot F40.00 AGORAPHOBIA, UNSPECIFIED 08/26/2017 GLENN PEREZ MD, Ot F41.9 ANXIETY DISORDER, UNSPECIFIED 08/26/2017 GLENN PEREZ MD Ot G47.33 OBSTRUCTIVE SLEEP APNEA (ADULT) (PEDIATR 08/26/2017 GLENN PEREZ MD Ot G81.94 HEMIPLEGIA, UNSPECIFIED AFFECTING LEFT N 08/26/2017 GLENN PEREZ MD, Ot I10 ESSENTIAL (PRIMARY) HYPERTENSION 08/26/2017 GLENN PEREZ MD Ot 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 08/26/2017 GLENN PEREZ MD Ot I69.354 HEMIPLGA FOLLOWING CEREBRAL INFRC AFFECT 08/26/2017 GLENN PEREZ MD, Ot J44.9 CHRONIC OBSTRUCTIVE PULMONARY DISEASE, U 08/26/2017 GLENN PEREZ MD Ot K21.9 GASTRO-ESOPHAGEAL REFLUX DISEASE WITHOUT 08/26/2017 GLENN PEREZ MD Ot K58.9 IRRITABLE BOWEL SYNDROME WITHOUT DIARRHE 08/26/2017 GLENN PEREZ MD Ot K59.09 OTHER CONSTIPATION 08/26/2017 GLENN PEREZ MD Ot M06.9 RHEUMATOID ARTHRITIS, UNSPECIFIED 08/26/2017 GLENN PEREZ MD Ot M19.91 PRIMARY OSTEOARTHRITIS, UNSPECIFIED SITE 08/26/2017 GLENN PEREZ MD, Ot M54.9 DORSALGIA, UNSPECIFIED 08/26/2017 GLENN PEREZ MD Ot R32 UNSPECIFIED URINARY INCONTINENCE 08/26/2017 GLENN PEREZ MD Ot R47.81 SLURRED SPEECH 08/26/2017 GLENN PEREZ MD Ot Z68.34 BODY MASS INDEX (BMI) 34.0-34.9, ADULT 08/26/2017 GLENN PEREZ MD Ot Z96.0 PRESENCE OF UROGENITAL IMPLANTS 08/31/2017 CHELSI CORDOBA MD Ot E66.9 OBESITY, UNSPECIFIED 08/31/2017 CHELSI CORDOBA MD Ot E78.5 HYPERLIPIDEMIA, UNSPECIFIED 08/31/2017 CORDOBA MD, CHELSI E Ot F17.210 NICOTINE DEPENDENCE, CIGARETTES, UNCOMPL 08/31/2017 CHELSI CORDOBA MD Ot F32.9 MAJOR DEPRESSIVE DISORDER, SINGLE EPISOD 08/31/2017 CHELSI CORDOBA MD Ot F41.9 ANXIETY DISORDER, UNSPECIFIED 08/31/2017 CHELSI CORDOBA MD E Ot I10 ESSENTIAL (PRIMARY) HYPERTENSION 08/31/2017 CHELSI CORDOBA MD Ot I69.354 HEMIPLGA FOLLOWING CEREBRAL INFRC AFFECT 08/31/2017 CHELSI CORDOBA MD Ot J44.9 CHRONIC OBSTRUCTIVE PULMONARY DISEASE, U 08/31/2017 CHELSI CORDOBA MD Ot K21.9 GASTRO-ESOPHAGEAL REFLUX DISEASE WITHOUT 08/31/2017 CHELSI CORDOBA MD Ot M06.9 RHEUMATOID ARTHRITIS, UNSPECIFIED 08/31/2017 CHELSI CORDOBA MD Ot R32 UNSPECIFIED URINARY INCONTINENCE 08/31/2017 CHELSI CORDOBA MD Ot Z68.35 BODY MASS INDEX (BMI) 35.0-35.9, ADULT 09/01/2017 CHELSI CORDOBA MD Ot E66.9 OBESITY, UNSPECIFIED 09/01/2017 CHELSI CORDOBA MD Ot E78.5 HYPERLIPIDEMIA, UNSPECIFIED 09/01/2017 CHELSI CORDOBA MD E Ot F17.210 NICOTINE DEPENDENCE, CIGARETTES, UNCOMPL 09/01/2017 CHELSI CORDOBA MD Ot F32.9 MAJOR DEPRESSIVE DISORDER, SINGLE EPISOD 09/01/2017 CHELSI CORDOBA MD Ot F41.9 ANXIETY DISORDER, UNSPECIFIED 09/01/2017 CHELSI CORDOBA MD Ot I10 ESSENTIAL (PRIMARY) HYPERTENSION 09/01/2017 CHELSI CORDOBA MD Ot I69.354 HEMIPLGA FOLLOWING CEREBRAL INFRC AFFECT 09/01/2017 CHELSI CORDOBA MD Ot J44.9 CHRONIC OBSTRUCTIVE PULMONARY DISEASE, U 09/01/2017 CHELSI CORDOBA MD Ot K21.9 GASTRO-ESOPHAGEAL REFLUX DISEASE WITHOUT 09/01/2017 CHELSI CORDOBA MD Ot M06.9 RHEUMATOID ARTHRITIS, UNSPECIFIED 09/01/2017 CHELSI CORDOBA MD Ot R32 UNSPECIFIED URINARY INCONTINENCE 09/01/2017 CHELSI CORDOBA MD Ot Z68.35 BODY MASS INDEX (BMI) 35.0-35.9, ADULT Procedures Code Description [place] [address] ROUTINE VENIPUNCTURE 08/01/2012 89775 UA W/ CULTURE IF INDICATED 08/01/2012 58734 CBC 08/01/2012 02284 BMP 08/01/2012 1564150 GFR CALC (RESULT ONLY) 08/01/2012 04417 CULTURE URINE 08/03/2012 DARSHANA JUDD 10/17/2012 03668 MAMMOGRAM, SCREENING 10/25/2012 55811 PAP SMEAR 10/25/2012 Q0091 PAP SMEAR OBTAIN SMEAR 10/25/2012 89299 PSYCH DIAG EVAL W/MED SRVCS 07/12/2013 23151 SLEEP STUDY 07/13/2013 04890 MAMMOGRAM, SCREENING 08/15/2013 63571 XRAY CERVICAL SPINE, 2 OR 3 VIEWS 09/25/2014 98633 XRAY THORACIC SPINE 3 VIEWS 09/25/2014 81678 MAMMOGRAM, SCREENING 09/28/2014 61336 ROUTINE VENIPUNCTURE 11/30/2014 44907 CBC 11/30/2014 [id number] GFR CALC (RESULT ONLY) 11/30/2014 27198 CMP 11/30/2014 57315 LIPID PANEL 11/30/2014 25565 INFLUENZA A & B (IN-HOUSE) 01/01/2015 34892 NEBULIZER TREATMENT 02/03/2015 51653 OXIMETRY 02/03/2015 [id number] INTRODUCE OTH THROMBOLYTIC IN PERIPH VEI 08/24/2017 55865 CULTURE AEROBIC IDENTIFY TATIANA SANTO MD 12/14/2017 10118 URINE CULTURE/COLONY COUNT TATIANA SANTO MD 12/14/2017 95002 MICROBE SUSCEPTIBLE CALLI TATIANA SANTO MD 12/14/2017 Results Test Result Range CBC WITH DIFF [...] Urine pH measurement by test strip 7 5-9 Specific gravity of urine by test strip 1.010 1.016- 1.022 Urine protein assay by test strip, semi-quantitative [...] 11:42 Blood leukocytes automated count (number/volume) 10.6 10*3/uL 4.3-11.0 Blood erythrocytes automated count (number/volume) 5.22 10*6/uL 4.35-5.85 Venous blood hemoglobin measurement (mass/volume) 15.2 [...] Automated blood platelet mean volume measurement 9.7 [foz_us] 7.4-10.4 Automated blood neutrophils/100 leukocytes 71 % [...] Serum or plasma sodium measurement (moles/volume) 139 mmol/L 135-145 Serum or plasma potassium measurement (moles/volume) 2.4 mmol/L 3.6-5.0 Serum or plasma chloride measurement (moles/volume) 101 mmol/L 98-107 Carbon dioxide 28 mmol/L 21-32 Serum or plasma anion gap determination (moles/volume) 10 mmol/L 5-14 Serum or plasma urea nitrogen measurement (mass/volume) 4 mg/dL 7-18 Serum or plasma creatinine measurement (mass/volume) 1.22 mg/dL 0.60-1.30 Serum or plasma urea nitrogen/creatinine mass ratio 3 NRG Serum or plasma creatinine measurement with calculation of estimated glomerular filtration rate 45 NRG Serum or plasma glucose measurement (mass/volume) 154 mg/dL 70-105 Serum or plasma calcium measurement (mass/volume) 10.0 mg/dL 8.5-10.1 Serum or plasma total bilirubin measurement [...] or plasma troponin i.cardiac measurement (mass/volume) < ng/ mL <0.30 THYROID STIMULATING HORMONE - 05/13/16 11:42 [...] Serum or plasma sodium measurement (moles/volume) 141 mmol/L 135-145 Serum or plasma potassium measurement (moles/volume) 3.4 mmol/L 3.6-5.0 Serum or plasma chloride measurement (moles/volume) 104 mmol/L 98-107 Carbon dioxide 29 mmol/L 21-32 Serum or plasma anion gap determination (moles/volume) 8 mmol/L 5-14 Serum or plasma urea nitrogen measurement (mass/volume) 5 mg/dL 7-18 Serum or plasma creatinine measurement (mass/volume) 1.12 mg/dL 0.60-1.30 Serum or plasma urea nitrogen/creatinine mass ratio 4 NRG Serum or plasma creatinine measurement with calculation of estimated glomerular filtration rate 50 NRG Serum or plasma glucose measurement (mass/volume) 98 mg/dL 70-105 Serum or plasma calcium measurement (mass/volume) 8.7 mg/dL 8.5-10.1 Serum or plasma troponin i.cardiac measurement (mass/volume) - 05/13/16 18:55 Serum or plasma troponin i.cardiac measurement (mass/volume) < ng/ mL <0.30 Whole blood basic metabolic panel - 05/14/16 09:03 Serum or plasma sodium measurement (moles/volume) 142 mmol/L 135-145 Serum or plasma potassium measurement (moles/volume) 3.0 mmol/L 3.6-5.0 Serum or plasma chloride measurement (moles/volume) 108 mmol/L 98-107 Carbon dioxide 28 mmol/L 21-32 Serum or plasma anion gap determination (moles/volume) 6 mmol/L 5-14 Serum or plasma urea nitrogen measurement (mass/volume) 8 mg/dL 7-18 Serum or plasma creatinine measurement (mass/volume) 0.94 mg/dL 0.60-1.30 Serum or plasma urea nitrogen/creatinine mass ratio 9 NRG Serum or plasma creatinine measurement with calculation of estimated glomerular filtration rate > NRG Serum or plasma glucose measurement (mass/volume) 117 mg/dL 70-105 Serum or plasma calcium measurement (mass/volume) 8.1 mg/dL 8.5-10.1 Whole blood basic metabolic panel - 05/14/16 14:55 Serum or plasma sodium measurement (moles/volume) 143 mmol/L 135-145 Serum or plasma potassium measurement (moles/volume) 4.0 mmol/L 3.6-5.0 Serum or plasma chloride measurement (moles/volume) 111 mmol/L 98-107 Carbon dioxide 30 mmol/L 21-32 Serum or plasma anion gap determination (moles/volume) 2 mmol/L 5-14 Serum or plasma urea nitrogen measurement (mass/volume) 9 mg/dL 7-18 Serum or plasma creatinine measurement (mass/volume) 0.84 mg/dL 0.60-1.30 Serum or plasma urea nitrogen/creatinine mass ratio 11 NRG Serum or plasma creatinine measurement with calculation of estimated glomerular filtration rate > NRG Serum or plasma glucose measurement (mass/volume) 126 mg/dL 70-105 Serum or plasma calcium measurement (mass/volume) 8.4 mg/dL 8.5-10.1 Methicillin resistant Staphylococcus aureus (MRSA) screening culture - 10:34 MRSA SCREEN RESULT MRSA ISOLATED NRG Complete blood count (CBC) with automated white blood cell (WBC) differential - 05/08/17 04:44 Blood leukocytes automated count (number/volume) 11.7 10*3/uL 4.3-11.0 Blood erythrocytes automated count (number/volume) 4.46 10*6/uL 4.35-5.85 Venous blood hemoglobin measurement (mass/volume) 13.1 g/dL 11.5-16.0 Blood hematocrit (volume fraction) 39 % 35-52 Automated erythrocyte mean corpuscular volume 87 [foz_us] 80-99 Automated erythrocyte mean corpuscular hemoglobin (mass per erythrocyte) 29 pg 25-34 Automated erythrocyte mean corpuscular hemoglobin concentration measurement ( mass/volume) 34 g/dL 32-36 Automated erythrocyte distribution width ratio 14.2 % 10.0-14.5 Automated blood platelet count (count/volume) 315 10*3/uL 130-400 Automated blood platelet mean volume measurement 9.2 [foz_us] 7.4-10.4 Automated blood neutrophils/100 leukocytes 65 % 42-75 Automated blood lymphocytes/100 leukocytes 26 % 12-44 Blood monocytes/100 leukocytes 8 % 0-12 Automated blood eosinophils/100 leukocytes 1 % 0-10 Automated blood basophils/100 leukocytes 1 % 0-10 Blood neutrophils automated count (number/volume) 7.6 10*3 1.8-7.8 Blood lymphocytes automated count (number/volume) 3.0 10*3 1.0-4.0 Blood monocytes automated count (number/volume) 0.9 10*3 0.0-1.0 Automated eosinophil count 0.1 10*3/uL 0.0-0.3 Automated blood basophil count (count/volume) 0.1 10*3/uL 0.0-0.1 Comprehensive metabolic panel - 05/08/17 04:44 Serum or plasma sodium measurement (moles/volume) 137 mmol/L 135-145 Serum or plasma potassium measurement (moles/volume) 4.1 mmol/L 3.6-5.0 Serum or plasma chloride measurement (moles/volume) 103 mmol/L 98-107 Carbon dioxide 20 mmol/L 21-32 Serum or plasma anion gap determination (moles/volume) 14 mmol/L 5-14 Serum or plasma urea nitrogen measurement (mass/volume) 10 mg/dL 7-18 Serum or plasma creatinine measurement (mass/volume) 0.86 mg/dL 0.60-1.30 Serum or plasma urea nitrogen/creatinine mass ratio 12 NRG Serum or plasma creatinine measurement with calculation of estimated glomerular filtration rate > NRG Serum or plasma glucose measurement (mass/volume) 92 mg/dL 70-105 Serum or plasma calcium measurement (mass/volume) 9.4 mg/dL 8.5-10.1 Serum or plasma total bilirubin measurement (mass/volume) 0.6 mg/dL 0.1-1.0 Serum or plasma alkaline phosphatase measurement (enzymatic activity/volume) 91 U/L 40-136 Serum or plasma aspartate aminotransferase measurement (enzymatic activity/ volume) 17 U/L 5-34 Serum or plasma alanine aminotransferase measurement (enzymatic activity/volume ) 17 U/L 0-55 Serum or plasma protein measurement (mass/volume) 7.6 g/dL 6.4-8.2 Serum or plasma albumin measurement (mass/volume) 3.8 g/dL 3.2-4.5 Complete blood count (CBC) with automated white blood cell (WBC) differential - 08/24/17 09:33 Blood leukocytes automated count (number/volume) 8.1 10*3/uL 4.3-11.0 Blood erythrocytes automated count (number/volume) 5.06 10*6/uL 4.35-5.85 Venous blood hemoglobin measurement (mass/volume) 14.9 g/dL 11.5-16.0 Blood hematocrit (volume fraction) 45 % 35-52 Automated erythrocyte mean corpuscular volume 88 [foz_us] 80-99 Automated erythrocyte mean corpuscular hemoglobin (mass per erythrocyte) 29 pg 25-34 Automated erythrocyte mean corpuscular hemoglobin concentration measurement ( mass/volume) 33 g/dL 32-36 Automated erythrocyte distribution width ratio 14.8 % 10.0-14.5 Automated blood platelet count (count/volume) 341 10*3/uL 130-400 Automated blood platelet mean volume measurement 9.3 [foz_us] 7.4-10.4 Automated blood neutrophils/100 leukocytes 47 % 42-75 Automated blood lymphocytes/100 leukocytes 43 % 12-44 Blood monocytes/100 leukocytes 8 % 0-12 Automated blood eosinophils/100 leukocytes 2 % 0-10 Automated blood basophils/100 leukocytes 0 % 0-10 Blood neutrophils automated count (number/volume) 3.8 10*3 1.8-7.8 Blood lymphocytes automated count (number/volume) 3.5 10*3 1.0-4.0 Blood monocytes automated count (number/volume) 0.6 10*3 0.0-1.0 Automated eosinophil count 0.1 10*3/uL 0.0-0.3 Automated blood basophil count (count/volume) 0.0 10*3/uL 0.0-0.1 PT panel in platelet poor plasma by coagulation assay - 08/24/17 09:33 Prothrombin time (PT) in platelet poor plasma by coagulation assay 13.1 s 12.2-14.7 INR in platelet poor plasma or blood by coagulation assay 1.0 0.8-1.4 Activated partial thromboplastin time (aPTT) in platelet poor plasma bycoagulation assay - 08/24/17 09:33 Activated partial thromboplastin time (aPTT) in platelet poor plasma bycoagulation assay 43 s 24-35 Fibrin D-dimer FEU measurement in platelet poor plasma (mass/volume) - 09:33 Fibrin D-dimer FEU measurement in platelet poor plasma (mass/volume) 0.49 ug/mL 0.00-0.49 Comprehensive metabolic panel - 08/24/17 09:33 Serum or plasma sodium measurement (moles/volume) 137 mmol/L 135-145 Serum or plasma potassium measurement (moles/volume) 3.9 mmol/L 3.6-5.0 Serum or plasma chloride measurement (moles/volume) 104 mmol/L 98-107 Carbon dioxide 23 mmol/L 21-32 Serum or plasma anion gap determination (moles/volume) 10 mmol/L 5-14 Serum or plasma urea nitrogen measurement (mass/volume) 7 mg/dL 7-18 Serum or plasma creatinine measurement (mass/volume) 1.13 mg/dL 0.60-1.30 Serum or plasma urea nitrogen/creatinine mass ratio 6 NRG Serum or plasma creatinine measurement with calculation of estimated glomerular filtration rate 49 NRG Serum or plasma glucose measurement (mass/volume) 87 mg/dL 70-105 Serum or plasma calcium measurement (mass/volume) 9.5 mg/dL 8.5-10.1 Serum or plasma total bilirubin measurement (mass/volume) 0.4 mg/dL 0.1-1.0 Serum or plasma alkaline phosphatase measurement (enzymatic activity/volume) 118 U/L 40-136 Serum or plasma aspartate aminotransferase measurement (enzymatic activity/ volume) 23 U/L 5-34 Serum or plasma alanine aminotransferase measurement (enzymatic activity/volume ) 17 U/L 0-55 Serum or plasma protein measurement (mass/volume) 8.3 g/dL 6.4-8.2 Serum or plasma albumin measurement (mass/volume) 4.0 g/dL 3.2-4.5 Serum or plasma troponin i.cardiac measurement (mass/volume) - 08/24/17 09:33 Serum or plasma troponin i.cardiac measurement (mass/volume) < ng/ mL <0.30 Blood lactic acid measurement (moles/volume) - 08/24/17 09:33 Blood lactic acid measurement (moles/volume) 1.72 mmol/L 0.50-2.00 Complete urinalysis with reflex to culture - 08/24/17 09:50 Urine color determination YELLOW NRG Urine clarity determination CLEAR NRG Urine pH measurement by test strip 6 5-9 Specific gravity of urine by test strip 1.010 1.016- 1.022 Urine protein assay by test strip, semi-quantitative [...] count by microscopy (number/high power field ) NONE NRG Bacteria detection in urine sediment by light microscopy NEGATIVE NRG Squamous epithelial cells detection in urine sediment by light microscopy 0-2 NRG Crystals detection in urine sediment by light microscopy NONE NRG Casts detection in urine sediment by light microscopy NONE NRG Mucus detection in urine sediment by light microscopy NEGATIVE NRG Complete urinalysis with reflex to culture NO NRG Bacterial blood culture - 08/24/17 11:10 Bacterial blood culture NG NRG Bacterial blood culture - 08/24/17 11:17 Bacterial blood culture NG NRG Complete blood count (CBC) with automated white blood cell (WBC) differential - 08/25/17 04:25 Blood leukocytes automated count (number/volume) 6.8 10*3/uL 4.3-11.0 Blood erythrocytes automated count (number/volume) 4.28 10*6/uL 4.35-5.85 Venous blood hemoglobin measurement (mass/volume) 12.5 g/dL 11.5-16.0 Blood hematocrit (volume fraction) 38 % 35-52 Automated erythrocyte mean corpuscular volume 90 [foz_us] 80-99 Automated erythrocyte mean corpuscular hemoglobin (mass per erythrocyte) 29 pg 25-34 Automated erythrocyte mean corpuscular hemoglobin concentration measurement ( mass/volume) 33 g/dL 32-36 Automated erythrocyte distribution width ratio 14.8 % 10.0-14.5 Automated blood platelet count (count/volume) 275 10*3/uL 130-400 Automated blood platelet mean volume measurement 10.0 [foz_us] 7.4-10.4 Automated blood neutrophils/100 leukocytes 62 % 42-75 Automated blood lymphocytes/100 leukocytes 30 % 12-44 Blood monocytes/100 leukocytes 8 % 0-12 Automated blood eosinophils/100 leukocytes 1 % 0-10 Automated blood basophils/100 leukocytes 0 % 0-10 Blood neutrophils automated count (number/volume) 4.2 10*3 1.8-7.8 Blood lymphocytes automated count (number/volume) 2.0 10*3 1.0-4.0 Blood monocytes automated count (number/volume) 0.5 10*3 0.0-1.0 Automated eosinophil count 0.1 10*3/uL 0.0-0.3 Automated blood basophil count (count/volume) 0.0 10*3/uL 0.0-0.1 Comprehensive metabolic panel - 08/25/17 04:25 Serum or plasma sodium measurement (moles/volume) 141 mmol/L 135-145 Serum or plasma potassium measurement (moles/volume) 3.8 mmol/L 3.6-5.0 Serum or plasma chloride measurement (moles/volume) 111 mmol/L 98-107 Carbon dioxide 21 mmol/L 21-32 Serum or plasma anion gap determination (moles/volume) 9 mmol/L 5-14 Serum or plasma urea nitrogen measurement (mass/volume) 9 mg/dL 7-18 Serum or plasma creatinine measurement (mass/volume) 0.90 mg/dL 0.60-1.30 Serum or plasma urea nitrogen/creatinine mass ratio 10 NRG Serum or plasma creatinine measurement with calculation of estimated glomerular filtration rate > NRG Serum or plasma glucose measurement (mass/volume) 108 mg/dL 70-105 Serum or plasma calcium measurement (mass/volume) 8.1 mg/dL 8.5-10.1 Serum or plasma total bilirubin measurement (mass/volume) 0.2 mg/dL 0.1-1.0 Serum or plasma alkaline phosphatase measurement (enzymatic activity/volume) 89 U/L 40-136 Serum or plasma aspartate aminotransferase measurement (enzymatic activity/ volume) 14 U/L 5-34 Serum or plasma alanine aminotransferase measurement (enzymatic activity/volume ) 15 U/L 0-55 Serum or plasma protein measurement (mass/volume) 6.0 g/dL 6.4-8.2 Serum or plasma albumin measurement (mass/volume) 3.2 g/dL 3.2-4.5 Serum or plasma phosphate measurement (mass/volume) - 08/25/17 04:25 Serum or plasma phosphate measurement (mass/volume) 2.6 mg/dL 2.3-4.7 Magnesium - 08/25/17 04:25 Magnesium 2.0 mg/dL 1.8-2.4 Complete blood count (CBC) with automated white blood cell (WBC) differential - 08/26/17 04:05 Blood leukocytes automated count (number/volume) 7.1 10*3/uL 4.3-11.0 Blood erythrocytes automated count (number/volume) 4.37 10*6/uL 4.35-5.85 Venous blood hemoglobin measurement (mass/volume) 12.9 g/dL 11.5-16.0 Blood hematocrit (volume fraction) 39 % 35-52 Automated erythrocyte mean corpuscular volume 90 [foz_us] 80-99 Automated erythrocyte mean corpuscular hemoglobin (mass per erythrocyte) 30 pg 25-34 Automated erythrocyte mean corpuscular hemoglobin concentration measurement ( mass/volume) 33 g/dL 32-36 Automated erythrocyte distribution width ratio 14.8 % 10.0-14.5 Automated blood platelet count (count/volume) 292 10*3/uL 130-400 Automated blood platelet mean volume measurement 9.5 [foz_us] 7.4-10.4 Automated blood neutrophils/100 leukocytes 56 % 42-75 Automated blood lymphocytes/100 leukocytes 36 % 12-44 Blood monocytes/100 leukocytes 7 % 0-12 Automated blood eosinophils/100 leukocytes 1 % 0-10 Automated blood basophils/100 leukocytes 0 % 0-10 Blood neutrophils automated count (number/volume) 4.0 10*3 1.8-7.8 Blood lymphocytes automated count (number/volume) 2.6 10*3 1.0-4.0 Blood monocytes automated count (number/volume) 0.5 10*3 0.0-1.0 Automated eosinophil count 0.1 10*3/uL 0.0-0.3 Automated blood basophil count (count/volume) 0.0 10*3/uL 0.0-0.1 Whole blood basic metabolic panel - 08/26/17 04:05 Serum or plasma sodium measurement (moles/volume) 141 mmol/L 135-145 Serum or plasma potassium measurement (moles/volume) 3.5 mmol/L 3.6-5.0 Serum or plasma chloride measurement (moles/volume) 110 mmol/L 98-107 Carbon dioxide 20 mmol/L 21-32 Serum or plasma anion gap determination (moles/volume) 11 mmol/L 5-14 Serum or plasma urea nitrogen measurement (mass/volume) 8 mg/dL 7-18 Serum or plasma creatinine measurement (mass/volume) 0.75 mg/dL 0.60-1.30 Serum or plasma urea nitrogen/creatinine mass ratio 11 NRG Serum or plasma creatinine measurement with calculation of estimated glomerular filtration rate > NRG Serum or plasma glucose measurement (mass/volume) 102 mg/dL 70-105 Serum or plasma calcium measurement (mass/volume) 8.9 mg/dL 8.5-10.1 Encounters ACCT No. Visit Date/Time Discharge Status Pt. Type Provider Facility Loc./Unit Complaint [id number] 01/15/2015 13:16:00 01/15/2015 23:59:59 CLS Outpatient TEQUILA MINOR APRN [id number] 01/01/2015 10:37:00 01/01/2015 23:59:59 CLS Outpatient TREVER SNOWDEN APRN [id number] 11/30/2014 13:53:00 11/30/2014 23:59:59 CLS Outpatient IVÁN WATER HAULERTEQUILA Sims [id number] 10/18/2014 09:53:00 10/18/2014 23:59:59 CLS Outpatient IVÁN WATER HAULERTEQUILA [id number] 10/18/2014 09:53:00 10/18/2014 23:59:59 CLS Outpatient IVÁN WATER HAULERTEQUILA [id number] 09/25/2014 13:41:00 09/25/2014 23:59:59 CLS Outpatient TREVER SNOWDEN APRN [id number] 08/28/2014 09:54:00 08/28/2014 23:59:59 CLS Outpatient IVÁN WATER HAULERTEQUILA Sims [id number] 08/28/2014 09:54:00 08/28/2014 23:59:59 CLS Outpatient IVÁN DENICE HARRISETTE [id number] 07/27/2014 10:43:00 07/27/2014 23:59:59 CLS Outpatient IVÁN WATER HAULERTEQUILA Sims [id number] 04/26/2014 15:51:00 04/26/2014 23:59:59 CLS Outpatient IVÁN WATER HAULER, TEQUILA [id number] 04/26/2014 15:51:00 04/26/2014 23:59:59 CLS Outpatient IVÁN DENICE HARRISETTE [id number] 12/19/2013 16:22:00 12/19/2013 23:59:59 CLS Outpatient MORAIMA LOYA APRN [id number] 12/19/2013 16:22:00 12/19/2013 23:59:59 CLS Outpatient MORAIMA LOYA APRN [id number] 12/11/2013 08:28:00 12/11/2013 23:59:59 CLS Outpatient [id number] 08/15/2013 14:59:00 08/15/2013 23:59:59 CLS Outpatient LYNDSAY RASHEED MD [id number] 08/15/2013 14:17:00 08/15/2013 23:59:59 CLS Outpatient MORAIMA LOYA APRN [id number] 07/06/2013 11:48:00 07/06/2013 23:59:59 CLS Outpatient MORAIMA LOYA APRN [id number] 10/24/2012 09:56:00 10/24/2012 23:59:59 CLS Outpatient CORTEZ CARREON DO [id number] 10/17/2012 09:33:00 10/17/2012 23:59:59 [place] [id number] 08/01/2012 10:53:00 08/01/2012 23:59:59 CLS Outpatient CORTEZ CARREON DO [id number] 08/01/2012 10:53:00 08/01/2012 23:59:59 CLS Outpatient [id number] 05/20/2015 22:24:36 05/20/2015 23:59:59 CLS Outpatient Sylwia, V S [id number] 01/28/2015 11:10:01 01/28/2015 23:59:59 CLS Outpatient Sylwia, V S [id number] 06/18/2015 10:25:00 06/18/2015 14:15:00 DIS Inpatient QUINN SANTO [facility] OPS [id number] 09/09/2014 00:00:00 Document Registration [id number] 09/24/2017 15:30:00 09/24/2017 23:59:59 CLS Preadmit TREVER SNOWDEN [facility] RAD SCREENING [id number] 08/26/2017 13:31:00 09/01/2017 14:06:00 DIS Inpatient CHELSI CORDOBA MD [facility] IRF CVA [id number] 08/24/2017 11:34:00 08/26/2017 13:30:00 DIS Inpatient GLENN PEREZ MD [facility] ICU CVA [id number] 05/07/2017 13:52:00 05/10/2017 15:00:00 DIS Inpatient CHELSI CORDOBA MD [facility] IRF POSS STROKE, ONSET OF ILLNESS [id number] 03/31/2017 10:18:00 03/31/2017 13:10:00 DIS Outpatient ORLANDO HOFFMAN MD [facility] SDC LEFT SHOULDER CAPSULITIS [id number] 03/29/2017 05:32:00 03/29/2017 11:41:00 DIS Outpatient ORLANDO HOFFMAN MD [facility] PREOP LEFT SHOULDER MANIPULATION [id number] 01/28/2017 13:19:00 01/28/2017 23:59:59 CLS Outpatient ANGIE LASSITER [facility] CARD I25.10 [id number] 09/22/2016 13:39:00 09/22/2016 23:59:59 CLS Outpatient TREVER SNOWDEN [facility] RAD SCREENING [id number] 05/13/2016 13:15:00 05/14/2016 16:38:00 DIS Inpatient CHRIS WEBSTER, GLENN Sims [facility] ICU SYMPTOMATIC HYPOKALEMIA NAUSEA [id number] 08/13/2015 10:56:00 08/13/2015 23:59:59 CLS Outpatient TREVER SNOWDEN [facility] RAD [id number] 07/10/2015 23:10:00 07/11/2015 18:45:00 DIS Inpatient KATHYA WEBSTER, LYNDSAY Negron [facility] 4TH [id number] 01/06/2015 08:22:00 01/06/2015 10:35:00 DIS Emergency BAYLEE WEBSTER, LEEANN Simms [facility] ER [id number] 10/14/2014 17:30:00 10/14/2014 19:48:00 DIS Emergency HOA CAIN DO [facility] ER [id number] 09/28/2014 13:48:00 09/28/2014 23:59:59 CLS Outpatient TREVER SNOWDEN [facility] RAD [id number] 09/12/2013 09:19:00 09/12/2013 23:59:59 CLS Outpatient [id number] 08/10/2013 21:28:00 08/11/2013 06:55:00 DIS Outpatient [id number] 03/07/2013 12:18:00 03/07/2013 23:59:59 CLS Outpatient [id number] 02/19/2013 17:13:00 02/19/2013 18:52:00 DIS Emergency [id number] 01/10/2016 08:51:00 Document Registration [id number] 07/10/2015 23:37:00 Document Registration [id number] 07/10/2015 23:37:00 Document Registration [id number] 03/21/2015 11:59:00 Document Registration [id number] 09/14/2011 16:25:00 Document Registration [id number] 11/17/2017 11:43:01 ACT Unknown [id number] 12/14/2017 16:58:00 12/14/2017 16:58:00 [facility]
[2017-12-22 07:43] VITALS: BP 156/85
--- NOTE | 2017-12-22 08:15 | Implantation of Loop Monitor ---
Implant of Loop Monitior IMPLANTATION OF LOOP MONITOR REPORT DATE OF PROCEDURE: 12/22/17 PREOP DIAGNOSIS: Long-term surveillance for cryptogenic stroke POSTOP DIAGNOSIS: cryptogenic stroke PROCEDURE DETAILS: The patient is a 62 female with history of paroxysmal atrial fibrillation requiring long-term surveillance. Therefore implantable loop recorder was discussed and agreed with the patient. Informed consent was taken. All risks and complications were discussed at length. The patient was draped and prepped in the usual sterile fashion. Local anesthesia was lidocaine, which was given in the substernal area close to the 4th intercostal space. Loop monitor Red [employer] with serial number [id number] was implanted according to the protocol. Steri-Strips were placed at the end of the procedure. There were no complications and the patient tolerated the procedure well. The device was interrogated with a voltage of. ANESTHESIA: Local anesthesia with lidocaine. COMPLICATIONS: None CONTRAST/FLUOROSCOPY: None CONCLUSION: 1. Successful implantation of loop monitor for cryptogenic stroke 2. No complication and the patient tolerated the procedure well. NADIYA SCOTT MD Dec 22, 2017 08:15
== END | disposition home or self-care (01) ==
LOC: CATH 07:17
PROVIDERS: ATTEND Internal Medicine Cardiovascular Disease
DX: I48.0 Paroxysmal atrial fibrillation (principal); R07.9 Chest pain, unspecified; R55 Syncope and collapse; I73.9 Peripheral vascular disease, unspecified; Z86.73 Personal history of transient ischemic attack (TIA), and cerebral infarction without residual deficits; I25.10 Atherosclerotic heart disease of native coronary artery without angina pectoris; I10 Essential (primary) hypertension; F17.210 Nicotine dependence, cigarettes, uncomplicated; E78.5 Hyperlipidemia, unspecified; I65.29 Occlusion and stenosis of unspecified carotid artery
CPT/HCPCS: 33282

== ENCOUNTER 2018-01-27 15:43 | Emergency (ER) | payer MEDICARE ==
[~2018-01-27] VITALS: Ht 167.6 cm; Wt 90.7 kg
[~2018-01-27 15:43] MED LIST changes: -LIDOCAINE 1% INJ 50 ML (XYLOCAINE) VIAL ONE
[2018-01-27] MEDS ORDERED: NS IV 1000 ML 1,000 ML IV SCH ×2 (16:15→18:00)
[2018-01-27 16:29] LABS: BASOPHILS % (AUTO) 0 % (0-10); EOSINOPHILS # (AUTO) 0.1 10^3/uL (0.0-0.3); EOSINOPHILS % (AUTO) 1 % (0-10); HEMATOCRIT 40 % (35-52); HEMOGLOBIN 13.8 G/DL (11.5-16.0); LYMPHOCYTES # (AUTO) 2.7 X 10^3 (1.0-4.0); LYMPHOCYTES % (AUTO) 29 % (12-44); MEAN CORPUSCULAR HEMOGLOBIN 30 PG (25-34); MEAN CORPUSCULAR HGB CONC 34 G/DL (32-36); MEAN CORPUSCULAR VOLUME 87 FL (80-99); MEAN PLATELET VOLUME 9.7 FL (7.4-10.4); MONOCYTES # (AUTO) 0.6 X 10^3 (0.0-1.0); MONOCYTES % (AUTO) 7 % (0-12); NEUTROPHILS # (AUTO) 5.8 X 10^3 (1.8-7.8); NEUTROPHILS % (AUTO) 63 % (42-75); PLATELET COUNT 349 10^3/uL (130-400); RED BLOOD COUNT 4.64 10^6/uL (4.35-5.85); RED CELL DISTRIBUTION WIDTH 16.2 % (10.0-14.5); WHITE BLOOD COUNT 9.2 10^3/uL (4.3-11.0)
[2018-01-27 16:30] LABS: BILIRUBIN,URINE NEGATIVE (NEGATIVE); CLARITY,URINE CLEAR; COLOR,URINE YELLOW; GLUCOSE, URINE (UA) NEGATIVE (NEGATIVE); KETONES,URINE NEGATIVE (NEGATIVE); LEUKOCYTE ESTERASE ,URINE NEGATIVE (NEGATIVE); NITRITE,URINE NEGATIVE (NEGATIVE); PH,URINE 6 (5-9); PROTEIN,URINE NEGATIVE (NEGATIVE); UROBILINOGEN,URINE NORMAL (NORMAL)
[2018-01-27 16:37] LABS: BACTERIA,URINE NEGATIVE /HPF
[2018-01-27 17:23] LABS: ALANINE AMINOTRANSFERASE 14 U/L (0-55); ALBUMIN 4.2 GM/DL (3.2-4.5); ALKALINE PHOSPHATASE 90 U/L (40-136); BILIRUBIN,TOTAL 0.4 MG/DL (0.1-1.0); BUN/CREATININE RATIO 9; CALCIUM 9.3 MG/DL (8.5-10.1); CARBON DIOXIDE 24 MMOL/L (21-32); CHLORIDE 101 MMOL/L (98-107); CREATININE SERUM 0.91 MG/DL (0.60-1.30); GFR ESTIMATED > 60; GLUCOSE 85 MG/DL (70-105); POTASSIUM 4.1 MMOL/L (3.6-5.0); SODIUM 133 MMOL/L (135-145); TOTAL PROTEIN 8.4 GM/DL (6.4-8.2)
--- NOTE | 2018-01-27 17:26 | ED GI ---
General Chief Complaint: Abdominal/GI Problems Stated Complaint: DEHYDRATION, V/D Nursing Triage Note: PT STATES SICK OFF AND ON SINCE , HX OF IBS, DIARRHEA FOR 4 DAYS, VOMITING 2 DAYS, TAKING ZOFRAN. Sepsis Screen: No Definite Risk Source of Information: Patient Exam Limitations: No Limitations (LEEANN BEACH MD) History of Present Illness Date Seen by Provider: Jan 27, 2018 Time Seen by Provider: 17:21 Initial Comments The patient is a 62-year-old female who presents with complaints of vomiting or diarrhea. She reports that this is happened on multiple occasions since about . This particular episode began about 4 days ago. She states that in the recent past she had seen a provider and had been given Bactrim for a urinary tract infection with Escherichia coli. She states that there had been no antibiotics involved prior to until that time. She has something in the way of crampy pain and multiple loose stools. She stated that there was some chilling and sweats yesterday. Timing/Duration: 4-5 Days Severity/Quality: Moderate Location: Generalized Abdomen Radiation: No Radiation Activities at Onset: None Associated Symptoms: Diaphoresis, Fever/Chills (LEEANN BEACH MD) Allergies and Home Medications Allergies Coded Allergies: Iodinated Contrast- Oral and IV Dye (Verified Allergy, Intermediate, ) doxycycline (Unverified Allergy, Intermediate, FACIAL SWELLING, 03/29/17) fluticasone furoate (Verified Allergy, Intermediate, N/V, 03/29/17) paroxetine (Verified Allergy, Intermediate, 03/29/17) vilanterol (Verified Allergy, Intermediate, N/V, 03/29/17) methylprednisolone (Unverified Allergy, Mild, flushing and skin burning and eye itching, 03/29/17) codeine (Verified Allergy, Unknown, HIVES, 03/29/17) hydrocodone (Unverified Adverse Reaction, Intermediate, DYSPNEA, HIVES, ) oxybutynin (Verified Adverse Reaction, Mild, sores in mouth, 03/29/17) Uncoded Allergies: PAPER TAPE (Allergy, Unknown, BLISTERS/SORES, 07/10/15) Home Medications Albuterol Sulfate 8.5 Gm Hfa.aer.ad, 1-2 PUFF INH Q6H PRN for SHORTNESS OF BREATH, (Reported) Albuterol Sulfate 2.5 Mg/3 Ml Vial.neb, 2.5 MG NEB Q4H PRN for SHORTNESS OF BREATH, (Reported) Clopidogrel Bisulfate 75 Mg Tablet, 75 MG PO DAILY Prescribed by: CHELSI CORDOBA on 09/01/17 1014 Cyclobenzaprine HCl 10 Mg Tablet, 10 MG PO BID PRN for MUSCLE SPASMS, (Reported) Dulaglutide 1.5 Mg/0.5 Ml Pen.injctr, 1.5 MG SQ Sa, (Reported) Fluticasone/Salmeterol 1 Each Blst.w.dev, 1 PUFF IH BID, (Reported) Gabapentin 600 Mg Tablet, 600 MG PO BID, (Reported) Loperamide HCl 2 Mg Capsule, 2 MG PO UD 2 tablets after the first loose stool then tabletafter each subsequent loose stool, do not exceed 6 tabs per day. Prescribed by: ESTELA MORAN on 01/27/181847 Metoprolol Tartrate 25 Mg Tablet, 25 MG PO BID, (Reported) Nicotine 1 Each Patch.td24, 14 MG TD DAILY@0900 Prescribed by: CHELSI CORDOBA on 09/01/17 0939 Omeprazole 40 Mg Capsule.dr, 40 MG PO DAILY, (Reported) Promethazine HCl 25 Mg Tablet, 25 MG PO Q8H PRN for NAUSEA/VOMITING Prescribed by: ESTELA MORAN on 01/27/181847 Rosuvastatin Calcium 10 Mg Tablet, 10 MG PO HS, (Reported) Tofacitinib Citrate 5 Mg Tablet, 5 MG PO BID, (Reported) Tramadol HCl 50 Mg Tablet, 50-100 MG PO Q4H PRN for PAIN-MODERATE Prescribed by: CHELSI CORDOBA on 09/01/17 09 Venlafaxine HCl 150 Mg Cap.er.24h, 150 MG PO BID, (Reported) TAKES ALONG WITH VENLAFAXINE 75MG Venlafaxine HCl 75 Mg Cap.er.24h, 75 MG PO BID, (Reported) TAKES ALONG WITH 150MG CAPSULE Patient Home Medication List Home Medication List Reviewed: Yes (ESTELA MORAN APRN) Review of Systems Constitutional: see HPI EENTM: No Symptoms Reported Respiratory: No Symptoms Reported Cardiovascular: No Symptoms Reported Gastrointestinal: See HPI, Diarrhea, Nausea, Vomiting Genitourinary: No Symptoms Reported Musculoskeletal: no symptoms reported Skin: no symptoms reported Psychiatric/Neurological: No Symptoms Reported Endocrine: No Symptoms Reported Hematologic/Lymphatic: No Symptoms Reported (LEEANN BEACH MD) Past Cnxugdn-Vgamke-Phlzse Hx Patient Social History Alcohol Use: Denies Use Number of Drinks Today: Alcohol Beverage of Choice: Wine Recreational Drug Use: No Smoking Status: Current Everyday Smoker Type Used: Cigarettes Recent Foreign Travel: No Contact w/Someone Who Travel: No Recent Infectious Disease Expo: No Recent Hopitalizations: Yes (08/2017) (LEEANN BEACH MD) Immunizations Up To Date Tetanus Booster (TDap): Unknown Date of Pneumonia Vaccine: Aug 18, 2017 Date of Influenza Vaccine: Aug 18, 2017 (LEEANN BEACH MD) Seasonal Allergies Seasonal Allergies: Yes (LEEANN BEACH MD) Past Medical History Surgeries: Yes (port placement/REMOVED, bladder stimulator, Right ear surgery, HEART MONITO) Tubal Ligation Respiratory: Yes (cpap at night) Sleep Apnea, Emphysema Currently Using CPAP: Yes Currently Using BIPAP: No Cardiac: Yes High Cholesterol, Hypertension Neurological: Yes (2 STROKES IN AND 2016) Stroke, TIA 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 Disorders: No 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: Tubal 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, Menopausal Sexually Transmitted Disease: No HIV/AIDS: No Genitourinary: Yes (bladder stimulator) Kidney Infection, Bladder Infection, Renal Failure Gastrointestinal: Yes (Esophageal spasm) Gastroesophageal Reflux, Irritable Bowel Musculoskeletal: Yes ("3 bulging disks", CHRONIC BILATERAL LEG PAIN) Arthritis, Rheumatoid Arthritis, Chronic Back Pain Endocrine: No HEENT: No Loss of Vision: Bilateral Hearing Impairment: Denies Cancer: No Psychosocial: Yes Anxiety, Depression Integumentary: No Blood Disorders: Yes (Anemia) Adverse Reaction/Blood Tranf: No (N/A) (LEEANN BEACH MD) Family Medical History Dementia 19 MOTHER FH: prostate cancer son, Onset:25's - 30 No Pertinent Family Hx, Cancer, Psychiatric Problems (LEEANN BEACH MD) Physical Exam Vital Signs Vital Signs - First Documented 01/27/18 15:51 Temp 96.8 Pulse 75 Resp 20 B/P (MAP) 123/82 (96) Pulse Ox 95 O2 Delivery Room Air (ESTELA MORAN APRN) Vital Signs Capillary Refill : Less Than 3 Seconds (LEEANN BEACH MD) General Appearance: mild distress HEENT: normal ENT inspection Neck: full range of motion Respiratory: chest non-tender Cardiovascular: normal peripheral pulses, regular rate, rhythm, no edema, no gallop, no JVD, no murmur Gastrointestinal: non tender, soft (hypoactive), no organomegaly, no pulsatile mass, abnormal bowel sounds Extremities: normal range of motion, non-tender, normal inspection, no pedal edema, no calf tenderness, normal capillary refill, pelvis stable Back: normal inspection Neurologic/Psychiatric: acid filler II-XII nml as tested, no motor/sensory deficits, alert, normal mood/affect, oriented x 3 (LEEANN BEACH MD) Progress/Results/Core Measures Lab Results Laboratory Tests Test 01/27/18 16:10 Range/Units White Blood Count 9.2 4.3-11.0 10^3/uL Red Blood Count 4.64 4.35-5.85 10^6/uL Hemoglobin 13.8 11.5-16.0 G/DL Hematocrit 40 35-52 % Mean Corpuscular Volume 87 80-99 FL Mean Corpuscular Hemoglobin 30 25-34 PG Mean Corpuscular Hemoglobin Concent 34 32-36 G/DL Red Cell Distribution Width 16.2 H 10.0-14.5 % Platelet Count 349 130-400 10^3/uL Mean Platelet Volume 9.7 7.4-10.4 FL Neutrophils (%) (Auto) 63 42-75 % Lymphocytes (%) (Auto) 29 12-44 % Monocytes (%) (Auto) 7 0-12 % Eosinophils (%) (Auto) 1 0-10 % Basophils (%) (Auto) 0 0-10 % Neutrophils # (Auto) 5.8 1.8-7.8 X 10^3 Lymphocytes # (Auto) 2.7 1.0-4.0 X 10^3 Monocytes # (Auto) 0.6 0.0-1.0 X 10^3 Eosinophils # (Auto) 0.1 0.0-0.3 10^3/uL Basophils # (Auto) 0.0 0.0-0.1 10^3/uL Urine Color YELLOW Urine Clarity CLEAR Urine pH 6 5-9 Urine Specific [place] 1.010 L 1.016-1.022 Urine Protein NEGATIVE NEGATIVE Urine Glucose (UA) NEGATIVE NEGATIVE Urine Ketones NEGATIVE NEGATIVE Urine Nitrite NEGATIVE NEGATIVE Urine Bilirubin NEGATIVE NEGATIVE Urine Urobilinogen NORMAL NORMAL MG/DL Urine Leukocyte Esterase NEGATIVE NEGATIVE Urine RBC (Auto) NEGATIVE NEGATIVE Urine RBC NONE /HPF Urine WBC NONE /HPF Urine Squamous Epithelial Cells 2-5 /HPF Urine Crystals NONE /LPF Urine Bacteria NEGATIVE /HPF Urine Casts NONE /LPF Urine Mucus NEGATIVE /LPF Urine Culture Indicated NO Sodium Level 133 L 135-145 MMOL/L Potassium Level 4.1 3.6-5.0 MMOL/L Chloride Level 101 98-107 MMOL/L Carbon Dioxide Level 24 21-32 MMOL/L Anion Gap 8 5-14 MMOL/L Blood Urea Nitrogen 8 7-18 MG/DL Creatinine 0.91 0.60-1.30 MG/DL Estimat Glomerular Filtration Rate > 60 BUN/Creatinine Ratio 9 Glucose Level 85 70-105 MG/DL Calcium Level 9.3 8.5-10.1 MG/DL Total Bilirubin 0.4 0.1-1.0 MG/DL Aspartate Amino Transf (AST/SGOT) 18 5-34 U/L Alanine Aminotransferase (ALT/SGPT) 14 0-55 U/L Alkaline Phosphatase 90 40-136 U/L Total Protein 8.4 H 6.4-8.2 GM/DL Albumin 4.2 3.2-4.5 GM/DL (ESTELA MORAN APRN) My Orders Orders - ESTELA MORAN APRN Ct Abdomen/Pelvis Wo (01/27/18 18:17) (ESTELA MORAN APRN) Vital Signs/I&O 01/27/18 15:51 Temp 96.8 Pulse 75 Resp 20 B/P (MAP) 123/82 (96) Pulse Ox 95 O2 Delivery Room Air (ESTELA MORAN APRN) Blood Pressure Mean: 96 Departure Impression Primary Impression: Nausea vomiting and diarrhea Disposition: HOME, SELF-CARE Condition: Stable Departure-Patient Inst. Decision time for Depature: 18:44 (ESTELA MORAN APRN) Referrals: [facility] (PCP) Primary Care Physician TREVER SNOWDEN (Family) Primary Care Physician Patient Instructions: No Instuctions Given Add. Discharge Instructions: 1. Drink plenty of fluids to stay hydrated. Use tthe Imodium as needed to help with loose stools. Use the nausea medication as needed to help with the nausea and vomiting. Call your regular health care provider tomorrow to make an appointment to be seen for further evaluation.All discharge instructions reviewed with patient and/or family. Voiced understanding. Scripts Promethazine HCl (Promethazine Tablet) 25 Mg Tablet 25 MG PO Q8H PRN for NAUSEA/VOMITING, #10 TAB Prov: ESTELA MORAN APRN 01/27/18 Loperamide HCl (Imodium A-D) 2 Mg Capsule 2 MG PO UD, #10 CAP 2 tablets after the first loose stool then tabletafter each subsequent loose stool, do not exceed 6 tabs per day. Prov: ESTELA MORAN APRN 01/27/18 LEEANN BEACH MD Jan 27, 2018 17:26 ESTELA MORAN APRN Jan 27, 2018 18:48
--- NOTE | 2018-01-27 18:38 | Diagnostic Imaging Report ---
PROCEDURE: CT abdomen and pelvis without contrast. TECHNIQUE: Multiple contiguous axial images were obtained through the abdomen and pelvis without the use of intravenous contrast. INDICATION: Left lower quadrant pain. FINDINGS: Lung bases are clear. Liver appears normal. Gallbladder is present. Pancreas is normal. Spleen is not enlarged. There are some simple cysts in each kidney. Adrenal glands are normal. There is no solid mass, calculus or hydronephrosis in either kidney. There is some calcific atherosclerosis of aorta but no aneurysm. Appendix is normal. Colon appears normal. Uterus is present. Adnexa unremarkable. There is no intraperitoneal free air or free fluid. IMPRESSION: Unremarkable CT abdomen and pelvis. Dictated by: Dictated on workstation # [id number]
[2018-01-27] MEDS ORDERED: LOPE-145 PO (18:48)
[2018-01-27] MEDS ORDERED: PROM25TA14 PO (18:48)
[2018-01-27 19:48] VITALS: BP 136/84
== END 2018-01-27 19:48 | disposition home or self-care (01) ==
LOC: EDUNIT# 15:43 → ER 15:44
DX: R11.2 Nausea with vomiting, unspecified (principal); R19.7 Diarrhea, unspecified; G47.30 Sleep apnea, unspecified; J43.9 Emphysema, unspecified; E78.00 Pure hypercholesterolemia, unspecified; K21.9 Gastro-esophageal reflux disease without esophagitis; I10 Essential (primary) hypertension; M06.9 Rheumatoid arthritis, unspecified; F32.9 Major depressive disorder, single episode, unspecified; F41.9 Anxiety disorder, unspecified; F17.210 Nicotine dependence, cigarettes, uncomplicated; Z98.51 Tubal ligation status; Z86.73 Personal history of transient ischemic attack (TIA), and cerebral infarction without residual deficits; Z87.19 Personal history of other diseases of the digestive system; Z87.440 Personal history of urinary (tract) infections; Z88.5 Allergy status to narcotic agent; Z96.0 Presence of urogenital implants; Z88.8 Allergy status to other drugs, medicaments and biological substances; Z91.041 Radiographic dye allergy status; Z91.048 Other nonmedicinal substance allergy status; Z79.51 Long term (current) use of inhaled steroids
CPT/HCPCS: 36415; 74176; 80053; 81000; 85025; 96360; 96361

== ENCOUNTER 2018-04-17 21:16 | Emergency (ER) | payer MEDICARE ==
[~2018-04-17] VITALS: Ht 167.6 cm; Wt 90.7 kg
[~2018-04-17 21:16] MED LIST changes: +LOPE-145 PO; +PROM25TA14 PO
[2018-04-17] MEDS ORDERED: RT-ALBUTEROL/IPRATROPIUM 3 ML (DUONEB) VIAL INH ONE ×2 (21:30→22:30)
--- NOTE | 2018-04-17 21:42 | ED Cough/URI ---
General Chief Complaint: Cough/Cold/Flu Symptoms Stated Complaint: COUGH,MUCOUS Nursing Triage Note: c/o productive cough x 2 weeks Source: patient Exam Limitations: no limitations History of Present Illness Date Seen by Provider: Apr 17, 2018 Time Seen by Provider: 21:42 Initial Comments 63-year-old female patient presents to the emergency department complaints of a productive cough for 2 weeks. Reports cough started out as a clear sputum and now has progressed to yellow". Denies fever or chills. Patient does have a history of COPD. Has not used her nebulizer for 2 weeks says it is at a friend' s house. Timing/Duration: getting worse, other (2 weeks onset) Severity/Quality: productive cough Prior Episodes/Possible Cause: occasional episodes Modifying Factors: Worse With Coughing Allergies and Home Medications Allergies Coded Allergies: Iodinated Contrast- Oral and IV Dye (Verified Allergy, Intermediate, ) doxycycline (Unverified Allergy, Intermediate, FACIAL SWELLING, 03/29/17) fluticasone furoate (Verified Allergy, Intermediate, N/V, 03/29/17) paroxetine (Verified Allergy, Intermediate, 03/29/17) vilanterol (Verified Allergy, Intermediate, N/V, 03/29/17) methylprednisolone (Unverified Allergy, Mild, flushing and skin burning and eye itching, 03/29/17) codeine (Verified Allergy, Unknown, HIVES, 03/29/17) hydrocodone (Unverified Adverse Reaction, Intermediate, DYSPNEA, HIVES, ) oxybutynin (Verified Adverse Reaction, Mild, sores in mouth, 03/29/17) Uncoded Allergies: PAPER TAPE (Allergy, Unknown, BLISTERS/SORES, 07/10/15) Home Medications Albuterol Sulfate 8.5 Gm Hfa.aer.ad, 1-2 PUFF INH Q6H PRN for SHORTNESS OF BREATH, (Reported) Albuterol Sulfate 2.5 Mg/3 Ml Vial.neb, 2.5 MG NEB Q4H PRN for SHORTNESS OF BREATH, (Reported) Albuterol Sulfate 2.5 Mg/3 Ml Vial.neb, 2.5 MG IH Q4H PRN for SHORTNESS OF BREATH Prescribed by: MONA SANDRA on 04/17/18 2249 Benzonatate 100 Mg Capsule, 1-2 MG PO Q8H PRN for COUGH Prescribed by: MONA SANDRA on 04/17/182247 Ciprofloxacin HCl 500 Mg Tablet, 500 MG PO BID Prescribed by: MONA SANDRA on 04/17/182247 Clopidogrel Bisulfate 75 Mg Tablet, 75 MG PO DAILY Prescribed by: CHELSI CORDOBA on 09/01/17 1014 Cyclobenzaprine HCl 10 Mg Tablet, 10 MG PO BID PRN for MUSCLE SPASMS, (Reported) Dulaglutide 1.5 Mg/0.5 Ml Pen.injctr, 1.5 MG SQ Sa, (Reported) Fluticasone/Salmeterol 1 Each Blst.w.dev, 1 PUFF IH BID, (Reported) Gabapentin 600 Mg Tablet, 600 MG PO BID, (Reported) Loperamide HCl 2 Mg Capsule, 2 MG PO UD 2 tablets after the first loose stool then tabletafter each subsequent loose stool, do not exceed 6 tabs per day. Prescribed by: ESTELA MORAN on 01/27/181847 Metoprolol Tartrate 25 Mg Tablet, 25 MG PO BID, (Reported) Nicotine 1 Each Patch.td24, 14 MG TD DAILY@0900 Prescribed by: CHELSI CORDOBA on 09/01/17 09 Omeprazole 40 Mg Capsule.dr, 40 MG PO DAILY, (Reported) Prednisone 20 Mg Tab, 40 MG PO DAILY Prescribed by: MONA SANDRA on 04/17/182247 Promethazine HCl 25 Mg Tablet, 25 MG PO Q8H PRN for NAUSEA/VOMITING Prescribed by: ESTELA MORAN on 01/27/181847 Rosuvastatin Calcium 10 Mg Tablet, 10 MG PO HS, (Reported) Tofacitinib Citrate 5 Mg Tablet, 5 MG PO BID, (Reported) Tramadol HCl 50 Mg Tablet, 50-100 MG PO Q4H PRN for PAIN-MODERATE Prescribed by: CHELSI CORDOBA on 09/01/17 09 Venlafaxine HCl 150 Mg Cap.er.24h, 150 MG PO BID, (Reported) TAKES ALONG WITH VENLAFAXINE 75MG Venlafaxine HCl 75 Mg Cap.er.24h, 75 MG PO BID, (Reported) TAKES ALONG WITH 150MG CAPSULE Patient Home Medication List Home Medication List Reviewed: Yes Review of Systems Constitutional: No chills, No fever, No malaise EENTM: no symptoms reported Respiratory: see HPI, cough, phlegm, short of breath, wheezing Cardiovascular: No chest pain, No edema, No palpitations, No syncope Gastrointestinal: no symptoms reported Genitourinary: no symptoms reported Musculoskeletal: no symptoms reported Skin: no symptoms reported Psychiatric/Neurological: No Symptoms Reported All Other Systems Reviewed Negative Unless Noted: Yes (Negative excepted noted.) Past Utfvsrl-Mixdoy-Kxkphg Hx Past Med/Social Hx: Reviewed Nursing Past Med/Soc Hx Patient Social History Alcohol Use: Denies Use Number of Drinks Today: Alcohol Beverage of Choice: Wine Recreational Drug Use: No Smoking Status: Current Everyday Smoker Type Used: Cigarettes Recent Foreign Travel: No Contact w/Someone Who Travel: No Recent Infectious Disease Expo: No Recent Hopitalizations: No Immunizations Up To Date Tetanus Booster (TDap): Unknown Date of Pneumonia Vaccine: Aug 18, 2017 Date of Influenza Vaccine: Aug 18, 2017 Seasonal Allergies Seasonal Allergies: Yes Past Medical History Surgeries: Yes (port placement/REMOVED, bladder stimulator, Right ear surgery, HEART MONITO) Tubal Ligation Respiratory: Yes (cpap at night) Sleep Apnea, Emphysema Currently Using CPAP: Yes Currently Using BIPAP: No Cardiac: Yes High Cholesterol, Hypertension Neurological: Yes (2 STROKES IN AND 2016) Stroke, TIA 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 Disorders: 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 History: Tubal Ligation, Menopausal Sexually Transmitted Disease: No HIV/AIDS: No Genitourinary: Yes (bladder stimulator) Kidney Infection, Bladder Infection, Renal Failure Gastrointestinal: Yes (Esophageal spasm) Gastroesophageal Reflux, Irritable Bowel Musculoskeletal: Yes ("3 bulging disks", CHRONIC BILATERAL LEG PAIN) Arthritis, Rheumatoid Arthritis, Chronic Back Pain Endocrine: No HEENT: No Loss of Vision: Bilateral Hearing Impairment: Denies Cancer: No Psychosocial: Yes Anxiety, Depression Integumentary: No Blood Disorders: Yes (Anemia) Adverse Reaction/Blood Tranf: No (N/A) Family Medical History Reviewed Nursing Family Hx Dementia 19 MOTHER FH: prostate cancer son, Onset:25's - 30 No Pertinent Family Hx, Cancer, Psychiatric Problems Physical Exam Vital Signs Vital Signs - First Documented 04/17/18 04/17/18 21:22 21:38 Temp 99.1 Pulse 89 Resp 18 B/P (MAP) 184/89 (120) Pulse Ox 94 O2 Delivery Room Air Capillary Refill : Less Than 3 Seconds General Appearance: WD/WN, no apparent distress HEENT: PERRL/EOMI, normal ENT inspection, TMs normal, pharynx normal Neck: non-tender, supple, normal inspection Respiratory: no respiratory distress, no accessory muscle use, decreased breath sounds, crackles, wheezing Cardiovascular: normal peripheral pulses, regular rate, rhythm, no edema, no gallop, no murmur Gastrointestinal: normal bowel sounds, non tender, soft, no organomegaly Extremities: no pedal edema, no calf tenderness, normal capillary refill Neurologic/Psychiatric: alert, normal mood/affect, oriented x 3 Skin: normal color, warm/dry Progress/Results/Core Measures Suspected Sepsis Recent Fever Within 48 Hours: No Infection Criteria Present: None New/Unexplained Altered Menta: No Sepsis Screen: No Definite Risk SIRS Temperature:99.1 Pulse: 89 Respiratory Rate: 18 Blood Pressure 184 /89 Mean: 120 Results/Orders My Orders Orders - MONA SANDRA Albuterol/Ipra Inhalation Soln (Duoneb I (04/17/18 21:30) Chest Pa/Lat (2 View) (04/17/18 21:25) Svn Small Volume Nebulizer (04/17/18 21:25) Albuterol Pre-Mix Nebs (Rt) (Proventil (04/17/18 22:23) Albuterol/Ipra Inhalation Soln (Duoneb I (04/17/18 22:30) Svn Small Volume Nebulizer (04/17/18 22:23) Svn Small Volume Nebulizer (04/17/18 22:23) Dexamethasone Pf Injection (Decadron Pf (04/17/18 22:30) Levofloxacin Tablet (Levaquin Tablet) (04/17/18 22:30) Prednisone Tablet (Deltasone Tablet) (04/17/18 22:30) Benzonatate Capsule (Tessalon Perles) (04/18/18 09:00) Guaifenesin Tablet (Mucinex Tablet) (04/17/18 22:30) Rx-Albuterol Inhaler (Rx-Proair) (04/17/18 22:27) Dexamethasone Injection (Decadron Inject (04/17/18 22:45) Benzonatate Capsule (Tessalon Perles) (04/17/18 23:22) Medications Given in ED Current Medications Medications Dose Ordered Sig/Osei Route Start Time Stop Time Status Last Admin Dose Admin Albuterol/ Ipratropium 3 ml ONCE ONCE INH 04/17/18 21:30 04/17/18 21:31 DC 04/17/18 21:38 3 ML Albuterol/ Ipratropium 3 ml ONCE ONCE INH 04/17/18 22:30 04/17/18 22:31 DC 04/17/18 22:41 3 ML Benzonatate 200 mg TID ONCE PO 04/18/18 09:00 04/18/18 09:00 DC 04/17/18 23:25 200 MG Guaifenesin 1,200 mg ONCE ONCE PO 04/17/18 22:30 04/17/18 22:31 DC 04/17/18 23:29 1,200 MG Levofloxacin 500 mg ONCE ONCE PO 04/17/18 22:30 04/17/18 22:31 DC 04/17/18 23:25 500 MG Prednisone 40 mg ONCE ONCE PO 04/17/18 22:30 04/17/18 22:31 DC 04/17/18 23:25 40 MG Vital Signs/I&O 04/17/18 04/17/18 04/17/18 04/17/18 21:22 21:38 22:47 22:50 Temp 99.1 Pulse 89 Resp 18 B/P (MAP) 184/89 (120) Pulse Ox 94 94 93 100 O2 Delivery Room Air Room Air Room Air 04/17/18 23:30 Temp 98.9 Pulse 113 Resp 20 B/P (MAP) 173/82 Pulse Ox 93 Capillary Refill : Less Than 3 Seconds Blood Pressure Mean: 120 Diagnostic Imaging Diagonstic Imaging: Xray Plain Films/CT/US/NM/MRI: chest Comments CHEST PA/LAT (2 VIEW) INDICATION: Cough x2 weeks PA and lateral chest obtained at 1012 PM and compared with 08/25/2017. Heart is borderline in size. There are chronic appearing increased interstitial markings. There is no acute consolidation or pneumothorax or pleural fluid. IMPRESSION: Chronic appearing increased interstitial markings. No acute consolidation or pneumothorax or pleural fluid. Stable appearance compared with 08/25/2017. Dictated by: Dictated on workstation # [id number] Reviewed: Reviewed by Me (radiology report reviewed by me) Departure Communication (Admissions) Diagnostic findings discussed with the patient. Patient was given 2 DuoNeb treatments, one albuterol treatment, and inhaled Decadron with improvement in symptoms. Patient shows clear breath sounds bilaterally. Cardiovascular regular rate and rhythm. Patient is alert and oriented 4, NAD. Plan for discharge to home. Impression Primary Impression: Acute bronchitis Qualified Codes: J20.9 - Acute bronchitis, unspecified Additional Impression: COPD with exacerbation Disposition: HOME, SELF-CARE Condition: Improved Departure-Patient Inst. Decision time for Depature: 22:45 Referrals: [facility] (PCP) Primary Care Physician TREVER SNOWDEN (Family) Primary Care Physician Patient Instructions: Acute Bronchitis, Adult (DC) Add. Discharge Instructions: All discharge instructions reviewed with patient and/or family. Voiced understanding. Medications as instructed. Continue usual home medications. Mucinex [id number] as directed for congestion. Follow-up with your primary care provider for recheck as an outpatient early this week. Call for appointment time tomorrow morning. Return to the emergency department for worsened symptoms or any other concerns. Scripts Ciprofloxacin HCl (Ciprofloxacin HCl) 500 Mg Tablet 500 MG PO BID, #14 TAB 0 Refills Prov: MONA SANDRA 04/17/18 Benzonatate (Tessalon Perle) 100 Mg Capsule 1-2 MG PO Q8H PRN for COUGH, #14 CAP 1 Refill Prov: MONA SANDRA 04/17/18 Albuterol Sulfate (Albuterol Sulfate) 2.5 Mg/3 Ml Vial.neb 2.5 MG IH Q4H PRN for SHORTNESS OF BREATH, #25 EA 0 Refills Prov: MONA SANDRA 04/17/18 Prednisone (Prednisone) 20 Mg Tab 40 MG PO DAILY, #8 TAB 0 Refills Prov: MONA SANDRA 04/17/18 MONA SANDRA Apr 17, 2018 21:42
--- NOTE | 2018-04-17 22:02 | Diagnostic Imaging Report ---
INDICATION: Cough x2 weeks PA and lateral chest obtained at 1012 PM and compared with 08/25/2017. Heart is borderline in size. There are chronic appearing increased interstitial markings. There is no acute consolidation or pneumothorax or pleural fluid. IMPRESSION: Chronic appearing increased interstitial markings. No acute consolidation or pneumothorax or pleural fluid. Stable appearance compared with 08/25/2017. Dictated by: Dictated on workstation # [id number]
[2018-04-17] MEDS ORDERED: RT-ALBUTEROL SULF 2.5 MG/3 ML PRE-MIX VIAL INH STA (22:23)
[2018-04-17] MEDS ORDERED: RX-ALBUTEROL INHALER (PROAIR) 8 GM IH STA (22:27)
[2018-04-17] MEDS ORDERED: guaiFENesin (MUCINEX) 600 MG TAB PO ONE (22:30)
[2018-04-17] MEDS ORDERED: DEXAMETHASONE PF 10 MG/ML (DECADRON) VIAL INH ONE (22:30)
[2018-04-17] MEDS ORDERED: LEVOFLOXACIN 500 MG TAB (LEVAQUIN) PO ONE (22:30)
[2018-04-17] MEDS ORDERED: predniSONE 20 MG TAB PO ONE (22:30)
[2018-04-17] MEDS ORDERED: DEXAMETHASONE 10 MG/ML (DECADRON) 1 ML VIAL INH ONE (22:45)
[2018-04-17] MEDS ORDERED: PRD20T PO (22:48)
[2018-04-17] MEDS ORDERED: BENZ-13 PO (22:48)
[2018-04-17] MEDS ORDERED: ALBU2.5V4 IH (22:48)
[2018-04-17] MEDS ORDERED: CIPR500T4 PO (22:48)
[2018-04-17] MEDS ORDERED: BENZONATATE 100 MG (TESSALON) CAPSULE PO ONE (23:22)
[2018-04-17 23:30] VITALS: BP 173/82
[2018-04-18] MEDS ORDERED: BENZONATATE 100 MG (TESSALON) CAPSULE PO ONE (09:00)
== END 2018-04-17 23:29 | disposition home or self-care (01) ==
LOC: EDUNIT# 21:16 → ER 21:18
DX: J44.0 Chronic obstructive pulmonary disease with (acute) lower respiratory infection (principal); J20.9 Acute bronchitis, unspecified; F17.210 Nicotine dependence, cigarettes, uncomplicated; E78.00 Pure hypercholesterolemia, unspecified; I10 Essential (primary) hypertension; K21.9 Gastro-esophageal reflux disease without esophagitis; M06.9 Rheumatoid arthritis, unspecified; F41.9 Anxiety disorder, unspecified; F32.9 Major depressive disorder, single episode, unspecified; Z86.73 Personal history of transient ischemic attack (TIA), and cerebral infarction without residual deficits; Z91.041 Radiographic dye allergy status; Z88.8 Allergy status to other drugs, medicaments and biological substances; Z88.5 Allergy status to narcotic agent; Z98.51 Tubal ligation status
CPT/HCPCS: 71046; 94640

== ENCOUNTER 2018-06-12 15:34 | Inpatient (IN) | payer MEDICARE ==
[~2018-06-12] VITALS: Ht 167.6 cm; Wt 92.7 kg
[~2018-06-12 15:34] MED LIST changes: -AMLO5TAB2 PO; +AMLO5TAB7 PO; +CIPR500T4 PO; +SUCCINYLCHOLINE INJ 100 MG/5 ML SYR INJ ONE
[2018-06-12] MEDS ORDERED: RT-ALBUTEROL/IPRATROPIUM 3 ML (DUONEB) VIAL ONE (15:42)
[2018-06-12 15:45] VITALS: BP 90/54
[2018-06-12] MEDS ORDERED: NS IV 1000 ML 1,000 ML IV ONE ×2 (15:46→15:56)
--- OUTSIDE RECORDS SUMMARY | 2018-06-12 15:46 | XMS REPORT | Clinical Summary ---
Author Author Admin, E Organization [facility] Address Unknown Phone Unavailable Allergies, Adverse [...] TABLET by mouth twice a day SULFAMETHOXAZOLE-TRIMETHOPRIM 85061750032 Active Saima Blum Active NITROFURANTOIN MACROCRYSTAL 100 MG ORAL CAPSULE Take one by mouth daily NITROFURANTOIN MACROCRYSTAL 72728942886 Active Saima Blum Active TRULICITY 0.75 MG/0.5ML SUBCUTANEOUS SOLUTION PEN-INJECTOR .qwk DULAGLUTIDE 11616943795 Active Parris Jordan MD Active ZETIA 10 MG ORAL TABLET Take one by mouth daily EZETIMIBE 73749373446 Active Parris Jordan MD Active ABILIFY 5 MG ORAL TABLET 1 qd ARIPIPRAZOLE 96013249938 No Longer Active Parris Jordan MD Active MELOXICAM 7.5 MG ORAL TABLET 2 qd MELOXICAM 98648489875 No Longer Active Parris Jordan MD Active SYMBICORT 80-4.5 MCG/ACT INHALATION AEROSOL 2 puffs daily BUDESONIDE-FORMOTEROL FUMARATE 04714422726 No Longer Active Parris Jordan MD Active RITALIN 10 MG ORAL TABLET 1 tab by mputh daily METHYLPHENIDATE HCL 23494714319 Active Aaliyah Alvares Active RITALIN 20 MG ORAL TABLET 1 tab by mouth twice daily METHYLPHENIDATE HCL 94705451502 Active Aaliyah Alvares Active NORVASC 5 MG ORAL TABLET 1 qd AMLODIPINE BESYLATE 80383030698 No Longer Active Aaliyah Alvares Active PROAIR HFA 108 (90 Base) MCG/ACT INHALATION AEROSOL SOLUTION prn ALBUTEROL SULFATE 08245147625 Active Parris Jordan MD Active [facility] DAILY MULTIPLE ORAL TABLET 1 qd MULTIPLE VITAMIN 30397901448 Active Parris Jordan MD Active CALCIUM 600 MG ORAL TABLET 1 qd CALCIUM 44680626849 Active Parris Jordan MD Active [facility] D3 CAPSULE 1 qd CHOLECALCIFEROL CAPS 36314082075 Active Parris Jordan MD Active EFFEXOR XR 75 MG ORAL CAPSULE EXTENDED RELEASE 24 HOUR 1 qd VENLAFAXINE HCL 43581747938 Active Parris Jordan MD Active XELJANZ 5 MG ORAL TABLET 1 bid TOFACITINIB CITRATE 74810392383 Active Parris Jordan MD Active ATORVASTATIN CALCIUM 40 MG ORAL TABLET 1 qd ATORVASTATIN CALCIUM 26720017535 Active Parris Jordan MD Active LOPRESSOR TABLET 25 mg 1 bid METOPROLOL TARTRATE TABS 83326098276 Active Parris Jordan MD Active ALPRAZOLAM 1 MG ORAL TABLET 1 tid ALPRAZOLAM 31328301289 Active Parris Jordan MD Active TRAMADOL HCL 50 MG ORAL TABLET 4x a day TRAMADOL HCL 31630530009 Active Parris Jordan MD Active OMEPRAZOLE 40 MG ORAL CAPSULE DELAYED RELEASE 1 qd OMEPRAZOLE 17550620634 Active Parris Jordan MD Active NORVASC 5 MG ORAL TABLET 1 qd NORVASC 5 MG ORAL TABLET 425536 AMLODIPINE BESYLATE Inactive SYMBICORT 80-4.5 MCG/ACT INHALATION AEROSOL 2 puffs daily SYMBICORT 80-4.5 MCG/ACT INHALATION AEROSOL BUDESONIDE-FORMOTEROL FUMARATE Inactive MELOXICAM 7.5 MG ORAL TABLET 2 qd MELOXICAM 7.5 MG ORAL TABLET 252945 MELOXICAM Inactive ABILIFY 5 MG ORAL TABLET 1 qd ABILIFY 5 MG ORAL TABLET 612563 ARIPIPRAZOLE Inactive Advance Directives Directive Description Start [...] negative Encounters Code Encounter Date Provider Facility CPT-43817 Level 3 Est. 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 Patient 16:17:17 CDT Parris Jordan MD [facility] CPT-47634 Level 3 Est. Patient 16:06:50 CDT Parris Jordan MD [facility] CPT-37935 Level 3 Est. Patient 16:52:25 CDT Parris Jordan [facility] CPT-14435 Level 3 Est. Patient 17:13:41 CDT Parris Jordan MD [facility] CPT-88524 Level 4 New Patient 22:47:28 CDT Parris Jordan MD [facility] Procedures Code Procedure Name Date Entry Date Standard Description CPT-92525 Bladder Scan 16:17:18 CDT CPT-78226 Bladder Scan 16:06:50 CDT CPT-33576 Postop F/U Visit 11:51:38 CDT CPT-15576 Interstim trial 17:13:41 CDT
--- OUTSIDE RECORDS SUMMARY | 2018-06-12 15:47 | XMS REPORT ---
Author Author DANIEL CARLTON Organization [facility] Address [address] [place] [address] Care Team Providers Care Career Technology Teacher Name Role Phone WILLIAMINDIA CARLTON Unavailable PROBLEMS Type Condition ICD9-CM Code AVB45-SU Code Onset Dates Condition Status SNOMED Code Problem ADHD (attention deficit hyperactivity disorder), combined type F90.2 Active 95956877 Problem Generalized anxiety disorder F41.1 Active 30395547 Problem Asthma J45.909 Active 790539953 Problem Dysthymic disorder F34.1 Active 74472742 Problem Hypertension I10 Active 40783325 Problem Sleep apnea in adult G47.30 Active 35138675 Problem Chronic pain syndrome G89.4 Active 222310825 Problem Rheumatoid arthritis involving multiple sites, unspecified rheumatoid factor presence M06.9 Active 242725153 Problem Anxiety F41.9 Active 85397090 Problem Gastroesophageal reflux disease with esophagitis K21.0 Active 698978720 Problem Primary insomnia F51.01 Active 7631996 Problem Chronic obstructive pulmonary disease, unspecified COPD type J44.9 Active 85834696 Problem Arteriosclerotic coronary artery disease I25.10 Active 72073728 Problem Weight gain R63.5 Active 5993404 Problem Rheumatoid arthritis M06.9 Active 82128400 Problem Panic attacks F41.0 Active 560210683 Problem Irritable bowel syndrome with diarrhea K58.0 Active 946486727 Problem Seasonal allergies J30.2 Active 143403134 Problem Mild episode of recurrent major depressive disorder F33.0 Active 490935809 Problem Neuropathy G62.9 Active 196362688 Problem Other insomnia G47.09 Active 479166278 Problem Mixed hyperlipidemia E78.2 Active 091133399 Problem Hyperinsulinemia E16.1 Active 52605171 Problem 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 (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 Active 783689694 Problem Cerebrovascular accident (CVA), unspecified mechanism I63.9 Active 989429348 Problem Chronic obstructive pulmonary disease, unspecified J44.9 Active 09642209949901621 Problem Obstructive sleep apnea G47.33 Active 12182439 ALLERGIES No Information ENCOUNTERS Encounter Location Date Diagnosis [facility] [id number] [place] [address] 73038- 3113 Jul, [facility] [id number] [place] [address] 80088- 9650 Jun, [facility] [address] 77457- 0336 Jun, [facility] [id number] [place] [address] 29694- 8263 May, Primary insomnia F51.01 [facility] [id number] [place] [address] 48787- 4971 May, Mild episode of recurrent major depressive disorder F33.0 [facility] [id number] [place] [address] 60792- 7603 May, [facility] [id number] [place] [address] 31694- 9003 May, Chronic obstructive pulmonary disease, unspecified COPD type J44.9 ; Primary insomnia F51.01 ; Fatigue, unspecified type R53.83 and Weight gain R63.5 [facility] [id number] [place] [address] 81416- 0857 May, Thrush B37.0 [facility] [id number] [place] [address] 98740- 7005 May, Mild episode of recurrent major depressive disorder F33.0 and Generalized anxiety disorder F41.1 [facility] [id number] [place] [address] 29812- 7204 May, Thrush B37.0 [facility] [id number] [place] [address] 61517- 9555 Apr, Cough R05 [facility] [id number] [place] [address] 50753- 5622 Mar, Mild episode of recurrent major depressive disorder F33.0 [facility] [id number] [place] [address] 73431- 8109 Mar, Mild episode of recurrent major depressive disorder F33.0 and Generalized anxiety disorder F41.1 [facility] [id number] [place] [address] 59351- 9796 Mar, Seasonal allergies J30.2 [facility] [id number] [place] [address] 10952- 8085 Mar, Seasonal allergies J30.2 [facility] [id number] [place] [address] 39113- 7773 February, Generalized anxiety disorder F41.1 [facility] [id number] [place] [address] 65445 -3302 February, Cough R05 and Seasonal allergies J30.2 [facility] [id number] [place] [address] 81205- 6117 February, Generalized anxiety disorder F41.1 and Mild episode of recurrent major depressive disorder F33.0 [facility] [id number] [place] [address] 43223- 0342 February, 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 exterminator (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 ; Anxiety F41.9 ; Panic attacks F41.0 and Irritable bowel syndrome with diarrhea K58.0 [facility] [id number] [place] [address] 22899- 2969 February, [facility] [id number] [place] [address] 81425- 4932 Jan, Mixed hyperlipidemia E78.2 [facility] [id number] [place] [address] 42635- 3829 Jan, [facility] [id number] [place] [address] 85736- 5047 Jan, [facility] [id number] [place] [address] 23745- 8538 Jan, [facility] [id number] [place] [address] 74361- 4980 Jan, [facility] [id number] [place] [address] 050375- 3276 Dec, [facility] [id number] [place] [address] 92107- 3452 Dec, [facility] [id number] [place] [address] 11106- 6642 Dec, [facility] [id number] [place] [address] 64696- 1074 Nov, Dysthymic disorder F34.1 [facility] [id number] [place] [address] 500535- 6530 Oct, [facility] [id number] [place] [address] 35742- 8627 Oct, [facility] [id number] [place] [address] 11949- 3646 Oct, [facility] [id number] [place] [address] 24208- 9274 Oct, Diarrhea, unspecified type R19.7 and Dysuria R30.0 [facility] [id number] [place] [address] 65393- 1145 Oct, [facility] [id number] [place] [address] 56283- 8637 Sep, [facility] [id number] [place] [address] 71308- 3458 Sep, [facility] [id number] [place] [address] 44325- 5128 Sep, Anxiety F41.9 [facility] [id number] [place] [address] 606253- 4508 Sep, Cerebrovascular accident (CVA), unspecified mechanism I63.9 ; Mixed hyperlipidemia E78.2 ; Gastroesophageal reflux disease with esophagitis K21.0 and Anxiety F41.9 [facility] [id number] [place] [address] 92484- 5424 Sep, [facility] [id number] [place] [address] 77226- 2846 Aug, Chronic obstructive pulmonary disease, unspecified J44.9 ; Asthma J45.909 ; Nausea R11.0 ; Dysthymic disorder F34.1 ; Cerebrovascular accident (CVA), unspecified mechanism I63.9 and Rheumatoid arthritis M06.9 [facility] [address] 49132- 5356 Aug, Nausea R11.0 ; Encounter for immunization Z23 ; Sleep apnea in adult G47.30 ; Rheumatoid arthritis involving multiple sites, unspecified rheumatoid factor presence M06.9 ; Generalized anxiety disorder F41.1 ; Dysthymic disorder F34.1 and Asthma J45.909 [facility] [id number] [place] [address] 71644- 3397 Jul, [facility] [id number] [place] [address] 18816- 0786 May, ADHD (attention deficit hyperactivity disorder), combined type F90.2 ; Generalized anxiety disorder F41.1 and Persistent depressive disorder F34.1 [place] [id number] [place] [address] 15962- 4104 May, Cerebrovascular accident (CVA), unspecified mechanism I63.9 [facility] [id number] [place] [address] 51557- 9503 Apr, Mixed hyperlipidemia E78.2 and Cerebrovascular accident (CVA ), unspecified mechanism I63.9 [facility] [id number] [place] [address] 25971- 3821 Apr, Generalized anxiety disorder F41.1 [facility] [id number] [place] [address] 46607- 4482 Apr, Bronchitis J40 and Tobacco use Z72.0 [facility] [id number] [place] [address] 46700- 8920 Apr, Mixed hyperlipidemia E78.2 [facility] [id number] [place] [address] 76573- 4151 Apr, 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 (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 [facility] [address] 98347- 4838 Apr, [facility] [address] 38024- 3499 Apr, Generalized anxiety disorder F41.1 [place] [address] 30113- 1875 Apr, Obstructive sleep apnea G47.33 and Hyperinsulinemia E16.1 [facility] [address] 94465- 5573 Apr, ADHD (attention deficit hyperactivity disorder), combined type F90.2 ; Generalized anxiety disorder F41.1 and Persistent depressive disorder F34.1 [facility] [address] 48332- 3116 Mar, [facility] [id number] [place] [address] 51315- 8920 Mar, Generalized anxiety disorder F41.1 [facility] [id number] [place] [address] 00441- 6050 Mar, Tarsal tunnel syndrome of both lower extremities G57.53 [facility] [id number] [place] [address] 10923- 5553 February, [facility] [address] 27834- 7461 February, [facility] [address] 02055- 7861 February, Asthma J45.909 [facility] [address] [place] [address]- 9378 February, Generalized anxiety disorder F41.1 [facility] [id number] [place] [address] 68545- 5166 February, Hypoxemia R09.02 ; Hyperglycemia R73.9 ; Rheumatoid arthritis M06.9 and Generalized anxiety disorder F41.1 [facility] [id number] [place] [address] 02923- 4398 February, [facility] [id number] [place] [address] 78164- 3706 Jan, Chronic obstructive pulmonary disease, unspecified J44.9 [facility] [address] 72787- 6816 Jan, Chronic pain syndrome G89.4 [facility] [id number] [place] [address] 07924- 9131 Jan, Hypoxemia R09.02 [facility] [address] 38293- 4060 Jan, [facility] [id number] [place] [address] 82429- 9512 Jan, Chronic obstructive pulmonary disease, unspecified J44.9 ; Hypoxemia R09.02 ; Other insomnia G47.09 and Left anterior shoulder pain M25.512 [facility] [id number] [place] [address] 00822- 1990 Jan, Numbness in feet R20.0 and Neuropathy G62.9 [facility] [id number] [place] [address] 38927- 8080 Jan, [facility] [id number] [place] [address] 91832- 5984 Dec, Acute pain of left shoulder M25.512 [facility] [id number] [place] [address] 04357- 5369 Dec, Acute pain of left shoulder M25.512 [facility] [id number] [address]- 3086 10 Dec, 2016 Generalized anxiety disorder F41.1 [facility] [id number] [place] [address] 62870 2546 03 Dec, 2016 Generalized anxiety disorder F41.1 [facility] [address] [place] [address] 49932- 0532 27 Nov, 2016 ADHD (attention deficit hyperactivity disorder), combined type F90.2 ; Generalized anxiety disorder F41.1 and Persistent depressive disorder F34.1 [facility] [address] [place] [address] 24456- 1115 Nov, Acute pain of left shoulder M25.512 [facility] [id number] [place] [address] 02875- 5218 20 Nov, 2016 ADHD (attention deficit hyperactivity disorder), combined type F90.2 ; Generalized anxiety disorder F41.1 and Persistent depressive disorder F34.1 [facility] [id number] [place] [address] 63442- 2968 17 Nov, 2016 Chronic pain syndrome G89.4 [facility] [id number] [place] [address] 48102 2542 13 Nov, 2016 Chronic pain syndrome G89.4 [facility] [id number] [place] [address] 46101 2548 08 Nov, 2016 Acute pain of left shoulder M25.512 [facility] [address] [address]- 9999 07 Nov, 2016 Generalized anxiety disorder F41.1 [facility] [id number] [place] [address] 41291 2540 06 Nov, 2016 Acute pain of left shoulder M25.512 [facility] [address] [address]- 2545 06 Nov, 2016 ADHD (attention deficit hyperactivity disorder), combined type F90.2 ; Generalized anxiety disorder F41.1 and Persistent depressive disorder F34.1 [facility] [id number] [place] [address] 26130- 0666 Nov, Acute pain of left shoulder M25.512 ; Generalized anxiety disorder F41.1 ; Chronic pain syndrome G89.4 ; Hyperinsulinemia E16.1 ; Pain of left foot M79.672 and Pain in right foot M79.[address] 58316- 9451 Oct, ADHD (attention deficit hyperactivity disorder), combined type F90.2 ; Generalized anxiety disorder F41.1 and Dysthymic disorder F34.1 [facility] [address] 67409- 1912 Sep, [facility] [address] 50309- 5341 Sep, [address] 20942- 1619 Sep, Routine gynecological examination V72.31 ; Cervical cancer screening Z12.4 ; Breast cancer screening Z12.39 ; Colon cancer screening Z12.11 ; Hypokalemia E87.6 ; Herpes simplex type 1 infection B00.9 and Abscess of right axilla L02.411 [place] [id number] [place] [address] 16859- 9528 Sep, [place] [id number] [place] [address] 54152- 8677 Sep, ADHD (attention deficit hyperactivity disorder), combined type F90.2 ; Generalized anxiety disorder F41.1 and Dysthymic disorder F34.1 [facility] [id number] [place] [address] 85884- 0440 Aug, [facility] [id number] [place] [address] 54669- 4837 Aug, [place] [id number] [place] [address] 19197- 7176 Aug, Generalized anxiety disorder F41.1 [facility] [id number] [place] [address] 26325- 7122 Aug, ADHD (attention deficit hyperactivity disorder), combined type F90.2 ; Generalized anxiety disorder F41.1 and Dysthymic disorder F34.1 [facility] [id number] [place] [address] 07903- 4583 Jul, Chronic pain syndrome G89.4 ; Hypertension I10 ; Hypokalemia E87.6 ; Asthma J45.909 and Nausea R11.0 [facility] [id number] [place] [address] 72226- 8975 Jul, [facility] [address] 99492- 1385 Jul, Asthma J45.909 [place] [address] 76466- 1001 Jul, ADHD (attention deficit hyperactivity disorder), combined type F90.2 ; Generalized anxiety disorder F41.1 and Dysthymic disorder F34.1 [facility] [id number] [place] [address] 97812- 4906 Jul, [facility] [id number] [place] [address] 96648- 6804 Jul, Hypertension I10 ; Arteriosclerotic coronary artery disease I25.10 ; Mixed hyperlipidemia E78.2 ; Other rat exterminator (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 and Hyperglycemia R73.9 [facility] [id number] [place] [address] 84466- 1728 16 Jun, 2016 Hypokalemia E87.6 and Hyperglycemia R73.9 [place] [address] 31806- 1498 14 Jun, 2016 [place] [address] 96171- 9233 13 Jun, 2016 Abnormal kidney function N28.9 [place] [address] [place] [address]- 7751 Jun, [place] [address] 04135- 7052 Jun, ADHD (attention deficit hyperactivity disorder), combined type F90.2 ; Generalized anxiety disorder F41.1 and Dysthymic disorder F34.1 [place] [address] 28053- 4847 Jun, Generalized anxiety disorder F41.1 and Dysthymic disorder F34.1 [place] [address] 43140- 8371 Jun, Hypokalemia E87.6 [place] [address] 23182- 4798 May, Hypokalemia E87.6 ; Vertigo R42 and Hyperinsulinemia E16.1 [place] [address] 24517- 9929 May, [place] [address] 16521- 3192 May, Abnormal kidney function N28.9 ; Hyperinsulinemia E16.1 and Nausea R11.0 [place] [address] 92173- 6064 May, Hypokalemia E87.6 ; Nausea R11.0 ; Epigastric pain R10.13 ; Dehydration E86.0 ; Diaphoresis R61 and Right arm pain M79.601 [place] [place] [id number] [place] [address] 57146- 0830 May, [place] [address] 15415- 8757 May, Hypokalemia E87.6 [place] [address] 37648- 1235 May, Hypokalemia E87.6 [place] [address] [address]- 6614 Apr, [facility] [id number] [place] [address] 27559- 8919 Apr, ADHD (attention deficit hyperactivity disorder), combined type F90.2 ; Generalized anxiety disorder F41.1 and Dysthymic disorder F34.1 [place] [place] [id number] [place] [address] 73803- 7568 Apr, Right arm pain M79.601 and Hyperinsulinemia E16.1 [place] [place] [id number] [place] [address] 16829- 9074 Mar, [place] [place] [id number] [place] [address] 05055- 4319 Mar, [facility] [id number] [place] [address] 77095- 3936 Mar, Hyperinsulinemia E16.1 ; Hyperlipidemia, unspecified hyperlipidemia type E78.5 ; Central venous catheter in place Z78.9 ; Generalized anxiety disorder F41.1 and Urinary tract infection, site not specified N39.0 [facility] [id number] [place] [address] 10514- 5362 Mar, ADHD (attention deficit hyperactivity disorder), combined type F90.2 ; Generalized anxiety disorder F41.1 and Dysthymic disorder F34.1 [facility] [place] [address] [place] [address] 39138- 5934 February, ADHD (attention deficit hyperactivity disorder), combined type F90.2 ; Generalized anxiety disorder F41.1 and Dysthymic disorder F34.1 [place] [place] [id number] [place] [address] 58830- 2698 February, [place] [id number] [place] [address] 16822- 8453 February, [facility] [id number] [place] [address] 26788- 7313 February, Hypertension I10 and Weight gain R63.5 [facility] [address] [place] [address]- 5632 10 Feb, 2016 Major depressive disorder, recurrent, moderate F33.1 and Generalized anxiety disorder F41.1 [facility] [id number] [place] [address] 73945- 7125 February, ADHD (attention deficit hyperactivity disorder), combined type F90.2 ; Generalized anxiety disorder F41.1 and Dysthymic disorder F34.1 [place] [id number] [place] [address] 33280- 8457 February, [place] [id number] [place] [address] 24357- 4550 February, Asthma J45.909 ; Weight gain R63.5 ; Hypertension I10 ; Rheumatoid arthritis M06.9 and Chronic pain syndrome G89.4 [place] [id number] [place] [address] 09575- 2712 Jan, ADHD (attention deficit hyperactivity disorder), combined type F90.2 ; Generalized anxiety disorder F41.1 and Dysthymic disorder F34.1 [place] [place] [id number] [place] [address] 90107- 6390 Dec, ADHD (attention deficit hyperactivity disorder), combined type F90.2 ; Generalized anxiety disorder F41.1 and Dysthymic disorder F34.1 [place] [id number] [place] [address] 25826- 1494 Dec, [place] [id number] [place] [address] 88438- 7370 Nov, [place] [id number] [place] [address] 17144- 7543 Nov, [place] [id number] [place] [address] 70569- 0323 Nov, [place] [id number] [place] [address] 79502- 8457 Nov, [facility] [address] [place] [address]- 8774 Oct, [facility] [address] [place] [address]- 9880 Oct, [facility] [address] [place] [address]- 4820 Oct, [facility] [address] [place] [address]- 1220 Sep, [facility] [address] [place] [address]- 1929 Sep, [facility] [address] [place] [address]- 8818 Sep, Agoraphobia with panic disorder F40.01 ; Attention-deficit hyperactivity disorder, combined type F90.2 and Dysthymic disorder F34.1 [facility] [address] [address]- 8508 Aug, [facility] [address] [place] [address]- 8610 Aug, [facility] [id number] [address] Aug, [facility] [id number] [address] Aug, Dysthymic disorder F34.1 ; Generalized anxiety disorder F41.1 and ADHD (attention deficit hyperactivity disorder), combined type F90.2 [facility] [id number] [address] Aug, ADHD (attention deficit hyperactivity disorder), combined type F90.2 ; Generalized anxiety disorder F41.1 and Dysthymic disorder F34.1 [facility] [id number] [address] Jul, Urinary tract infection, site not specified N39.0 ; Hypotension, unspecified I95.9 and Breast cancer screening Z12.39 [facility] [id number] [place] [address] Jul, [facility] [id number] [place] [id number] Jul, [facility] [facility] [id number] [place] [address] 78395- 6124 Jul, Urinary tract infection, site not specified N39.0 ; Nausea R11.0 ; Gastroenteritis K52.9 ; Renal failure N19 and Other hypotension I95.89 [facility] [id number] [place] [address] 57587- 5338 Jul, [facility] [id number] [place] [address] 83252- 2608 Jul, [facility] [id number] [place] [address] 42879- 2063 Jul, [facility] [id number] [place] [address] 34311- 6501 Jun, [facility] [id number] [place] [address] 95648- 1793 Jun, Major depression in partial remission 296.25 ; Generalized anxiety disorder 300.02 and ADHD, predominantly inattentive type 314.01 [facility] [id number] [place] [address] 28677- 6634 May, [facility] [id number] [place] [address] 34557- 9080 Apr, Major depressive disorder, recurrent episode, severe, without mention of psychotic behavior 296.33 ; Agoraphobia with panic disorder 300.21 and Generalized anxiety disorder 300.02 [facility] [id number] [place] [address] 10935- 2933 14 Apr, 2015 ADHD (attention deficit hyperactivity disorder), combined type 314.01 ; Generalized anxiety disorder 300.02 and Dysthymic disorder 300.4 [facility] [id number] [place] [address] 36300- 7613 Apr, CAD (coronary artery disease) 414.00 ; HTN (hypertension) 401.9 and Tobacco use 305.1 [facility] [id number] [place] [address] 98485- 3633 Apr, [facility] [id number] [place] [address] 00298- 0277 Mar, ADHD (attention deficit hyperactivity disorder), combined type 314.01 ; Generalized anxiety disorder 300.02 ; Dysthymic disorder 300.4 ; No condition on Alpine II V71.09 ; Rheumatoid arthritis 714.0 ; Incontinence 788.30 ; Irritable bowel syndrome 564.1 ; Osteoporosis 733.00 and Chronic pain 338.29 [facility] [id number] [place] [address] 35293- 8342 Mar, Agoraphobia with panic disorder 300.21 and Major depressive disorder, recurrent episode, moderate 296.32 [facility] [id number] [place] [address] 77065- 2908 Mar, [facility] [id number] [place] [address] 77810- 9124 February, [facility] [id number] [place] [address] 62166- 0687 February, Agoraphobia with panic disorder 300.21 and Major depressive disorder, recurrent episode, moderate 296.32 [facility] [id number] [place] [address] 97474- 1110 February, [facility] [id number] [place] [address] 67335- 3193 Jan, [facility] [id number] [place] [address] 62895- 7433 Jan, [facility] [id number] [place] [address] 15592- 5958 Dec, [facility] [id number] [place] [address] 43041- 2196 Dec, [facility] [place] [facility] [address] [id number] [place] [address]- 5141 Dec, [facility] [place] [facility] [address] [id number] [place] [address]- 2577 Dec, [facility] [place] [facility] [address] [id number] [place] [address]- 0722 Dec, [facility] [place] [facility] [address] [id number] [place] [address]- 9533 Dec, [facility] [place] [facility] [address] [id number] [place] [address]- 6134 Nov, [facility] [place] [facility] [address] [id number] [place] [address]- 9658 Nov, [facility] [place] [facility] [address] [id number] [place] [address]- 6916 Nov, [facility] [place] [facility] [address] [id number] [place] [address]- 6249 Nov, [facility] [place] [facility] [address] [id number] [place] [address]- 6841 Nov, [facility] [place] [facility] [address] [id number] [place] [address]- 1603 Nov, [facility] [place] [facility] [address] [id number] [place] [address]- 8222 Nov, [facility] [place] [facility] [address] [id number] [place] [address]- 2581 Nov, [facility] [place] [facility] [address] [id number] [place] [address]- 1690 Oct, [facility] [place] [facility] [address] [id number] [place] [address]- 6376 Oct, [facility] [place] [facility] [address] [facility] [id number] [place] [address]- 5749 Oct, [facility] [place] [facility] [address] [id number] [place] [address]- 8800 Oct, [facility] [place] [facility] [address] [id number] [place] [address]- 1363 Oct, [facility] [place] [facility] [address] [id number] [place] [address]- 2819 Oct, [facility] [place] [facility] [address] [id number] [place] [address]- 4820 Sep, [facility] [place] [facility] [address] [id number] [place] [address]- 5314 Sep, [facility] [place] [facility] [address] [id number] [place]504 Sep, [facility] [place] [facility] [address] [id number] [place] [address]- 7971 Sep, [facility] [place] [facility] [address] [id number] [place] [address]- 9199 Sep, [facility] [place] [facility] [address] [id number] [place] [address]- 7420 Sep, [facility] [place] [facility] [address] [id number] [place] [address]- 4072 Sep, [facility] [place] [facility] [address] [id number] [place] [address]- 4175 Aug, [facility] [place] [facility] [address] [id number] [place] [address]- 7265 Aug, [facility] [place] [facility] [address] [id number] [place] [address]- 0947 Aug, [facility] [place] [facility] [address] [id number] [place] [address]- 9361 Aug, [facility] [place] [facility] [address] [id number] [place] [address]- 9384 Aug, [facility] [place] [facility] [address] [id number] [place] [address]- 7159 Aug, [facility] [place] [facility] [address] [id number] [place] [address]- 3259 Jul, [facility] [place] [facility] [address] [id number] [place] [address]- 5029 Jul, [facility] [place] [facility] [address] [id number] [place] [address]- 8394 Jul, [facility] [place] [facility] [address] [id number] [place] [address]- 6273 Jul, [facility] [place] [facility] [address] [id number] [place] [address]- 7244 Jul, [facility] [place] [facility] [address] [id number] [place] [address]- 0606 Jul, [facility] [place] [facility] [address] [id number] [place] [address]- 7556 Jun, [facility] [place] [facility] [address] [id number] [place] [address]- 2074 Jun, [facility] [place] [facility] [address] [id number] [place] [address]- 6661 May, [facility] [place] [facility] [address] [id number] [place] [address]- 3722 May, [facility] [place] [facility] [address] [id number], [place] [address]- 7654 Apr, [facility] [place] [facility] [address] [id number], [place] [address]- 4095 Apr, [facility] [place] [facility] [address] [id number] [place] [address]- 5742 Apr, [facility] [place] [facility] [address] [id number] [place] [address]- 1389 Apr, [facility] [place] [facility] [address] [id number] [place] [address]- 1964 Mar, [facility] [place] [facility] [address] [id number] [place] [address]- 8639 Mar, [facility] [place] [facility] [address] [id number] [place] [address]- 8223 Mar, [facility] [place] [facility] [address] [id number] [place] [address]- 9814 Mar, [facility] [place] [facility] [address] [id number] [place] [address]- 7554 February, [facility] [place] [facility] [address] [id number] [place] [address]- 9971 February, [facility] [place] [facility] [address] [id number] [place] [address]- 9813 February, [facility] [place] [facility] [address] [id number] [place] [address]- 4407 February, [facility] [place] [facility] [address] [id number] [place] [address]- 4884 February, [facility] [place] [facility] [address] [id number] [place] [address]- 4440 February, [facility] [place] [facility] [address] [id number] [place] [address]- 7162 Jan, [facility] [place] [facility] [address] [id number] [place] [address]- 4146 Jan, [facility] [place] [facility] [address] [id number] [place] [address]- 5999 Dec, [facility] [place] [facility] [address] [id number] [place] [address]- 6953 Dec, [facility] [place] [facility] [address] [id number] [place] [address]- 1253 Nov, [facility] [place] [facility] [address] [id number] [place] [address]- 6705 Nov, [facility] [place] [facility] [address] [id number] [place] [address]- 4964 Oct, [facility] [place] [facility] [address] [id number] [place] [address]- 1573 Oct, [facility] [address] [id number] [place] [address]- 7904 Oct, [facility] [address] [id number] [place] [address]- 4019 Oct, [facility] [address] [id number] [place] [address]- 6129 Sep, [facility] [address] [id number] [place] [address]- 9095 Sep, [facility] [address] [id number] [place] [address]- 2456 Sep, [facility] [address] [id number] [place] [address]- 8300 Sep, [facility] [address] [id number] [place] [address]- 0976 Sep, [facility] [address] [id number] [place] [address]- 2007 Sep, [facility] [address] [id number] [place] [address]- 4237 Sep, [facility] [address] [id number] [place] [address]- 1742 Sep, [facility] [address] [id number], [place] [address]- 0041 Aug, [facility] [place] [facility] [address] [id number] [place] [address]- 2671 Aug, [facility] [place] [facility] [address] [id number] [place] [address]- 4686 Aug, [facility] [place] [facility] [address] [id number] [place] [address]- 2549 Aug, [facility] [place] [facility] [address] [id number], [place] [address]- 7244 Aug, [facility] [place] [facility] [address] [id number] [place] [address]- 4256 Aug, [facility] [place] [facility] [address] [id number] [place] [address]- 8578 Aug, [facility] [place] [facility] [address] [id number] [place] [address]- 5653 Aug, [facility] [place] [facility] [address] [id number] [place] [address]- 9151 Aug, [facility] [place] [facility] [address] [id number] [place] [address]- 7668 Jul, [facility] [place] [facility] [address] [id number] [place] [address]- 3900 Jun, [facility] [place] [facility] [address] [id number] [place] [address]- 1991 May, [facility] [place] [facility] [address] [id number] [place] [address]- 6141 May, [facility] [place] [facility] [address] [id number] [place] [address]- 0279 May, [facility] [place] [facility] [address] [id number] [place] [address]- 8065 Apr, [facility] [place] [facility] [address] [id number], [place] [address]- 4591 Mar, [facility] [place] [facility] [address] [id number] [place] [address]- 4016 February, [facility] [place] [facility] [address] [id number] [place] [address]- 6385 Oct, [facility] [place] [facility] [address] [id number] [place] [address]- 3584 Oct, [facility] [place] [facility] [address] [id number] [place] [address]- 9719 Oct, [facility] [place] [facility] [address] [id number] [place] [address]- 6595 Oct, [facility] [place] [facility] [address] [id number] [place] [address]- 6973 Oct, [facility] [place] [facility] [address] [id number] [place] [address] 2546 Oct, [facility] [address] [id number] [place] [address]- 1464 Sep, [facility] [place] [facility] [address] [id number] [place] [address]- 9109 Sep, [facility] [place] [facility] [address] [id number] [place] [address]- 5310 Aug, [facility] [place] [facility] [address] [id number] [place] [address]- 9735 Aug, [facility] [place] [facility] [address] [id number] [place] [address]- 6025 Jul, [facility] [address] [id number] [place] [address]- 5903 Jul, [facility] [place] [facility] [address] [id number] [place] [address]- 1205 Jul, [facility] [address] [id number] [place] [address]- 8989 Jul, [facility] [place] [facility] [address] [id number] [place] [address]- 5046 Jul, [facility] [place] [facility] [address] [id number] [place] [address]- 8630 Jul, [facility] [place] [facility] [address] [id number] [place] [address]- 2928 Jul, [facility] [place] [facility] [address] [id number] [place] [address] 2546 Jul, [facility] [place] [facility] [address] [id number] [place] [address]- 2589 16 Jun, 2012 [facility] [place] [facility] [address] [id number] [place] [address]- 5607 Jun, [facility] [place] [facility] [address] [id number] [place] [address]- 1177 May, [facility] [place] [facility] [address] [id number] [place] [address]- 5109 Apr, [facility] [place] [facility] [address] [id number] [place] [address]- 5197 Mar, [facility] [place] [facility] [address] [id number] [place] [address]- 1438 Mar, [facility] [place] [facility] [address] [id number] [place] [address]- 6846 Mar, [facility] [place] [facility] [address] [id number] [place] [address]- 4612 Mar, [facility] [place] [facility] [address] [id number] [place] [address]- 5701 Jan, [facility] [place] [facility] [address] [id number] [place] [address]- 8481 Nov, [facility] [place] [facility] [address] [id number] [place] [address]- 5632 Nov, [facility] [place] [facility] [address] [id number] [place] [address]- 8462 Nov, [facility] [place] [facility] [address] [id number] [place] [address]- 4631 Oct, [facility] [place] [facility] [address] [id number] [place] [address]- 6831 Sep, [facility] [place] [facility] [address] [id number] [place] [address]- 0892 Sep, [facility] [place] [facility] [address] [id number] [place] [address]- 4326 Aug, [facility] [place] [facility] [address] [id number] [address] 6949 Aug, [facility] [id number] [address]- 7159 Aug, [facility] [id number], [place] [address] 1956 Aug, [facility] [id number], [place] [address]- 4774 Jul, [facility] [id number] [address]- 5659 May, [facility] [id number] [place] [address] 40072- 8301 Jan, [facility] [id number] [place] [address] 09225- 8446 Nov, [facility] [id number] [place] [address] 54810- 5561 Apr, [facility] [id number], [place] [address]- 3585 Dec, [facility] [id number], [place] [address]- 3010 Nov, IMMUNIZATIONS No Known Immunizations SOCIAL HISTORY Never Assessed REASON FOR VISIT xanax refill PLAN OF CARE VITAL SIGNS MEDICATIONS Medication Instructions Dosage Frequency Start Date End Date Duration Status Xanax 0.5 MG Orally Twice a day 1 tablet as needed 12h Sep, 30 days Active RESULTS No Results PROCEDURES No Known procedures INSTRUCTIONS MEDICATIONS ADMINISTERED No Known Medications MEDICAL (GENERAL) HISTORY Type Description Date Medical History Cardiovascular tdanhjgi-SAN-Ncyuovnh, 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 Mendoza Medical History Stress test 03/07/13-Dr. Kelly Dietrich normal Medical History Hypertension Medical History Asthma Medical History Gastrointestinal Disorder--IBS, GERD, Hx of fatty liver Medical History Hernia 1979 Medical History Cervical dysplasia 02/16-Pap LGSIL/[place]-mild dysplasia Medical History Hyperlipidemia Medical History Rheumatoid [...] 03/2016 Surgical History left shoulder march 2017 Surgical History heart monitor placement 12/22/17 Hospitalization History surgeries Hospitalization History Gastroenteritis/acute Kidney injury 07/10/15-07/11/2015 Hospitalization History Symptomatic Hypokalemia/Nause-[facility] 05/13/16 Hospitalization History Stroke 05/03/2017 Hospitalization History stroke 08/24/2017--09/01/2017
--- OUTSIDE RECORDS SUMMARY | 2018-06-12 15:47 | XMS REPORT ---
Author Author DANIEL CARLTON Organization [facility] Address [address] [place] [address] Care Team Providers Care Back Office Medical Assistant Name Role Phone WILLIAMINDIA CARLTON Unavailable PROBLEMS Type Condition ICD9-CM Code JKR46-HR Code Onset Dates Condition Status SNOMED Code Problem ADHD (attention deficit hyperactivity disorder), combined type F90.2 Active 06332803 Problem Generalized anxiety disorder F41.1 Active 35214753 Problem Asthma J45.909 Active 606083006 Problem Dysthymic disorder F34.1 Active 44779555 Problem Hypertension I10 Active 70649459 Problem Sleep apnea in adult G47.30 Active 29967749 Problem Chronic pain syndrome G89.4 Active 416350132 Problem Rheumatoid arthritis involving multiple sites, unspecified rheumatoid factor presence M06.9 Active 263605483 Problem Anxiety F41.9 Active 93515314 Problem Gastroesophageal reflux disease with esophagitis K21.0 Active 761531952 Problem Primary insomnia F51.01 Active 2130304 Problem Chronic obstructive pulmonary disease, unspecified COPD type J44.9 Active 40109582 Problem Arteriosclerotic coronary artery disease I25.10 Active 00152373 Problem Weight gain R63.5 Active 1728746 Problem Rheumatoid arthritis M06.9 Active 65353566 Problem Panic attacks F41.0 Active 339684343 Problem Irritable bowel syndrome with diarrhea K58.0 Active 401756893 Problem Seasonal allergies J30.2 Active 170759104 Problem Mild episode of recurrent major depressive disorder F33.0 Active 910063987 Problem Neuropathy G62.9 Active 338510726 Problem Other insomnia G47.09 Active 210571621 Problem Mixed hyperlipidemia E78.2 Active 375605880 Problem Hyperinsulinemia E16.1 Active 58255249 Problem Other mcc (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 Active 771092209 Problem Cerebrovascular accident (CVA), unspecified mechanism I63.9 Active 153916625 Problem Chronic obstructive pulmonary disease, unspecified J44.9 Active 80272254365975132 Problem Obstructive sleep apnea G47.33 Active 90855675 ALLERGIES Substance Reaction Event Type Date Status Breo Ellipta Nausea, dizziness Drug Allergy Mar, Active Solu-Medrol rash, swelling Drug Allergy Mar, Active Paxil Unknown Drug Allergy Mar, Active Hydrocodone-Acetaminophen hives Drug Allergy Mar, Active Doxycycline Hyclate local swellling Drug Allergy Mar, Active Codeine Sulfate hives Drug Allergy Mar, Active Iodinated Contrast Media - Iv Dye unknown Non Drug Allergy Mar, Active Oxybutynin 5 Ea Tablet mouth sores Non Drug Allergy Mar, Active ENCOUNTERS Encounter Location Date Diagnosis [place] [address] [address] Jul, [place] [address] [address]- [address]807 Jun, [place] [address] [address]- 4307 Jun, [place] [address] 06694- 5549 May, Primary insomnia F51.01 [place] [address] 40546- 0349 May, Mild episode of recurrent major depressive disorder F33.0 [place] [address] [place] [id number] [place] [address] 12533- 5548 May, [place] [address] 18897- 9189 May, Chronic obstructive pulmonary disease, unspecified COPD type J44.9 ; Primary insomnia F51.01 ; Fatigue, unspecified type R53.83 and Weight gain R63.5 [place] [address] 63991- 1095 May, Thrush B37.0 [place] [address] [place] [id number] [place] [address] 67373- 9803 May, Mild episode of recurrent major depressive disorder F33.0 and Generalized anxiety disorder F41.1 [facility] [address] [address] 3904 May, Thrush B37.0 [facility] [id number] [place] [address] 48543- 8968 Apr, Cough R05 [facility] [address] [place] [id number] [place] [address] 97044- 7448 Mar, Mild episode of recurrent major depressive disorder F33.0 [facility] [address] [place] [id number] [place] [address] 34869- 3719 Mar, Mild episode of recurrent major depressive disorder F33.0 and Generalized anxiety disorder F41.1 [facility] [address] [place] [id number] [place] [address] 33870- 6222 Mar, Seasonal allergies J30.2 [facility] [address] [place] [id number] [place] [address] 12605- 7889 Mar, Seasonal allergies J30.2 [facility] [address] [place] [id number] [place] [address] 63404- 3310 February, Generalized anxiety disorder F41.1 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 ; Anxiety F41.9 ; Panic attacks F41.0 and Irritable bowel syndrome with diarrhea K58.0 [facility] [address], [place] [address] 34[address] February, [facility] [address] [place] [id number] [place] [address]- 5062 Jan, Mixed hyperlipidemia E78.2 [facility] [address] [place] [id number] [place] [address], [place] [address]- 3606 Jan, [facility] [address] [place] [id number] [place] [address]- 4706 Jan, [facility] [address] [place] [id number] [place] [address], [place] [address]- 9986 Jan, [facility] [address] [place] [id number] [place] [address], [place] [address]- 4471 Jan, [facility] [address] [place] [id number] [place] [address], [place] [address]- 7678 Dec, [facility] [address] [place] [id number] [place] [address], [place] [address]- 3923 Dec, [facility] [address] [place] [id number] [place] [address], [place] [address]- 8142 Dec, [facility] [id number] [place] [address] 91330- 1001 Nov, Dysthymic disorder F34.1 [facility] [address], [place] [address]- 6500 Oct, [facility] [address] [address] 9219 Oct, [facility] [address], [place] [address] 1901 Oct, [facility] [address] [address]- 6087 Oct, Diarrhea, unspecified type R19.7 and Dysuria R30.0 [facility] [address], [place] [address]- 2770 Oct, [facility] [address], [place] [address]- 2995 Sep, [place] [address], [place] [address] 3000 Sep, [place] [address] [place] [id number] [place] [address] 18354- 8901 Sep, Anxiety F41.9 [place] [address] [place] [id number] [place] [address] 92630- 3714 Sep, Cerebrovascular accident (CVA), unspecified mechanism I63.9 ; Mixed hyperlipidemia E78.2 ; Gastroesophageal reflux disease with esophagitis K21.0 and Anxiety F41.9 [place] [address] [place] [id number] [place] [address] 11743- 7938 Sep, [place] [address] [place] [id number] [place] [address] 32947- 6089 Aug, Chronic obstructive pulmonary disease, unspecified J44.9 ; Asthma J45.909 ; Nausea R11.0 ; Dysthymic disorder F34.1 ; Cerebrovascular accident (CVA), unspecified mechanism I63.9 and Rheumatoid arthritis M06.9 [place] [address] [place] [id number] [place] [address] 98481- 0583 Aug, Nausea R11.0 ; Encounter for immunization Z23 ; Sleep apnea in adult G47.30 ; Rheumatoid arthritis involving multiple sites, unspecified rheumatoid factor presence M06.9 ; Generalized anxiety disorder F41.1 ; Dysthymic disorder F34.1 and Asthma J45.909 [place] [address] [place] [address] 77273- 0088 Jul, [place] [address] [place] [id number] [place] [address] 21367- 7500 May, ADHD (attention deficit hyperactivity disorder), combined type F90.2 ; Generalized anxiety disorder F41.1 and Persistent depressive disorder F34.1 [place] [id number] [place] [address] 63789- 2430 May, Cerebrovascular accident (CVA), unspecified mechanism I63.9 [place] [address] [place] [id number] [place] [address] 82153- 4890 Apr, Mixed hyperlipidemia E78.2 and Cerebrovascular accident (CVA ), unspecified mechanism I63.9 [place] [address] [place] [id number] [place] [address] 35261- 0623 Apr, Generalized anxiety disorder F41.1 [place] [address] [place] [id number] [place] [address] 60650- 1544 Apr, Bronchitis J40 and Tobacco use Z72.0 [place] [address] [place] [id number] [place] [address] 98975- 7825 Apr, Mixed hyperlipidemia E78.2 [place] [address] [place] [id number] [place] [address] 25103- 7253 Apr, Other mcc (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 [place] [id number] [place] [address] 03070- 9176 Apr, [place] [address] [place] [id number] [place] [address] 41247- 2141 Apr, Generalized anxiety disorder F41.[address] 55035- 5800 Apr, Obstructive sleep apnea G47.33 and Hyperinsulinemia E16.1 [place] [id number] [place] [address] 90207- 1771 Apr, ADHD (attention deficit hyperactivity disorder), combined type F90.2 ; Generalized anxiety disorder F41.1 and Persistent depressive disorder F34.1 [place] [address] [place] [id number] [place] [address] 72126- 6714 Mar, [address] 41621- 9375 Mar, Generalized anxiety disorder F41.1 [place] [address] [place] [id number] [place] [address] 12285- 5571 Mar, Tarsal tunnel syndrome of both lower extremities G57.53 [facility] [address] [place] [id number] [place] [address] 45760- 6041 February, [place] [address] 87771- 6532 February, [place] [address] [place] [id number] [place] [address] 27141- 3459 February, Asthma J45.909 [place] [address] 46270- 4212 February, Generalized anxiety disorder F41.1 [place] [address] 552138- 9650 February, Hypoxemia R09.02 ; Hyperglycemia R73.9 ; Rheumatoid arthritis M06.9 and Generalized anxiety disorder F41.1 [place] [address] 62793- 4293 February, [place] [address] 56836- 4003 Jan, Chronic obstructive pulmonary disease, unspecified J44.9 [place] [address] 53116- 9948 Jan, Chronic pain syndrome G89.4 [place] [address] [place] [id number] [place] [address] 23533- 3373 Jan, Hypoxemia R09.02 [place] [address] [place] [id number] [place] [address] 56741- 3673 Jan, [place] [address] [place] [id number] [place] [address] 97078- 3628 Jan, Chronic obstructive pulmonary disease, unspecified J44.9 ; Hypoxemia R09.02 ; Other insomnia G47.09 and Left anterior shoulder pain M25.512 [place] [address] [place] [id number] [place] [address] 92150- 3999 Jan, Numbness in feet R20.0 and Neuropathy G62.9 [place] [address], [place] [address]- 0355 Jan, [facility] [address] [place] [id number] [place] [address] 19688- 0129 Dec, Acute pain of left shoulder M25.512 [facility] [id number] [place] [address] 22433- 0660 Dec, Acute pain of left shoulder M25.512 [facility] [address] [place] [id number] [place] [address] 39834- 8949 Dec, Generalized anxiety disorder F41.1 [facility] [address] [place] [id number] [place] [address] 85245- 0152 Dec, Generalized anxiety disorder F41.1 [facility] [address] [place] [id number] [place] [address] 35381- 1448 Nov, ADHD (attention deficit hyperactivity disorder), combined type F90.2 ; Generalized anxiety disorder F41.1 and Persistent depressive disorder F34.1 [facility] [id number] [place] [address] 79117- 2883 Nov, Acute pain of left shoulder M25.512 [facility] [id number] [place] [address] 72855- 9940 Nov, ADHD (attention deficit hyperactivity disorder), combined type F90.2 ; Generalized anxiety disorder F41.1 and Persistent depressive disorder F34.1 [facility] [id number] [place] [address] 51252- 4082 Nov, Chronic pain syndrome G89.4 [facility] [address], [place] [address]- 4926 13 Nov, 2016 Chronic pain syndrome G89.4 [facility] [id number] [place] [address] 91586- 1021 08 Nov, 2016 Acute pain of left shoulder M25.512 [facility] [id number] [place] [address] 44505- 0838 Nov, Generalized anxiety disorder F41.1 [facility] [id number] [place] [address] 20661- 4117 Nov, Acute pain of left shoulder M25.512 [place] [address] [place] [id number] [place] [address] 81810- 0051 Nov, ADHD (attention deficit hyperactivity disorder), combined type F90.2 ; Generalized anxiety disorder F41.1 and Persistent depressive disorder F34.1 [place] [address] [place] [id number] [place] [address] 26997- 9989 Nov, Acute pain of left shoulder M25.512 ; Generalized anxiety disorder F41.1 ; Chronic pain syndrome G89.4 ; Hyperinsulinemia E16.1 ; Pain of left foot M79.672 and Pain in right foot M79.671 [place] [address] [place] [id number] [place] [address] 25530- 4468 Oct, ADHD (attention deficit hyperactivity disorder), combined type F90.2 ; Generalized anxiety disorder F41.1 and Dysthymic disorder F34.1 [place] [address] [place] [id number] [place] [address] 98716- 4643 Sep, [place] [address] [place] [id number] [place] [address] 39641- 2548 Sep, [place] [address] [place] [id number] [place] [address] 77650- 0299 Sep, Routine gynecological examination V72.31 ; Cervical cancer screening Z12.4 ; Breast cancer screening Z12.39 ; Colon cancer screening Z12.11 ; Hypokalemia E87.6 ; Herpes simplex type 1 infection B00.9 and Abscess of right axilla L02.411 [place] [address] [place] [id number] [place] [address] 00668- 8326 Sep, [place] [address] [place] [id number] [place] [address] 83770- 2065 Sep, ADHD (attention deficit hyperactivity disorder), combined type F90.2 ; Generalized anxiety disorder F41.1 and Dysthymic disorder F34.1 [facility] [address] [place] [id number] [place] [address] 21954- 0971 Aug, [facility] [address] [place] [id number] [place] [address] 83202- 1187 Aug, [facility] [address] [place] [id number] [place] [address] 25382- 4427 Aug, Generalized anxiety disorder F41.1 [facility] [address] [place] [id number] [place] [address] 03509- 7031 Aug, ADHD (attention deficit hyperactivity disorder), combined type F90.2 ; Generalized anxiety disorder F41.1 and Dysthymic disorder F34.1 [place] [address] [place] [id number] [place] [address] 97465- 2651 Jul, Chronic pain syndrome G89.4 ; Hypertension I10 ; Hypokalemia E87.6 ; Asthma J45.909 and Nausea R11.0 [facility] [address] [place] [id number] [place] [address] 22371- 1375 Jul, [facility] [address] [place] [id number] [place] [address] 24219- 1913 Jul, Asthma J45.909 [place] [address] [place] [id number] [place] [address] 17424- 0345 Jul, ADHD (attention deficit hyperactivity disorder), combined type F90.2 ; Generalized anxiety disorder F41.1 and Dysthymic disorder F34.1 [facility] [address] [place] [id number] [place] [address] 83932- 0868 Jul, [facility] [address] [place] [id number] [place] [address] 44175- 2184 Jul, Hypertension I10 ; Arteriosclerotic coronary artery disease I25.10 ; Mixed hyperlipidemia E78.2 ; Other mcc (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 and Hyperglycemia R73.9 [place] [address] [place] [address]- 5855 16 Jun, 2016 Hypokalemia E87.6 and Hyperglycemia R73.9 [place] [address] 84231- 5561 14 Jun, 2016 [place] [address] 09389- 0295 13 Jun, 2016 Abnormal kidney function N28.9 [place] [address] 56870- 2891 Jun, [place] [address] 54373- 8505 Jun, ADHD (attention deficit hyperactivity disorder), combined type F90.2 ; Generalized anxiety disorder F41.1 and Dysthymic disorder F34.1 [place] [address] 57994- 7470 Jun, Generalized anxiety disorder F41.1 and Dysthymic disorder F34.1 [place] [address] 98043- 8588 Jun, Hypokalemia E87.6 [place] [address] [place] [address]- 2308 May, Hypokalemia E87.6 ; Vertigo R42 and Hyperinsulinemia E16.1 [place] [address] 71350- 5608 May, [place] [address] 66282- 4153 May, Abnormal kidney function N28.9 ; Hyperinsulinemia E16.1 and Nausea R11.[address] 42558- 5520 May, Hypokalemia E87.6 ; Nausea R11.0 ; Epigastric pain R10.13 ; Dehydration E86.0 ; Diaphoresis R61 and Right arm pain M79.601 [place] [address], [place] [address]- 9604 May, [place] [address] [place] [id number] [place] [address] 71655- 7699 May, Hypokalemia E87.6 [facility] [address], [place] [address]- 2290 May, Hypokalemia E87.6 [place] [address] [place] [id number] [place] [address] 56934- 8979 Apr, [place] [id number] [place] [address] 67059- 2157 Apr, ADHD (attention deficit hyperactivity disorder), combined type F90.2 ; Generalized anxiety disorder F41.1 and Dysthymic disorder F34.1 [place] [address] [place] [address] 34762- 0262 Apr, Right arm pain M79.601 and Hyperinsulinemia E16.1 [place] [address] [place] [id number] [place] [address] 77893- 7920 Mar, [place] [address] [place] [id number] [place] [address] 86733- 8373 Mar, [place] [address] [place] [address] 97882- 2088 Mar, Hyperinsulinemia E16.1 ; Hyperlipidemia, unspecified hyperlipidemia type E78.5 ; Central venous catheter in place Z78.9 ; Generalized anxiety disorder F41.1 and Urinary tract infection, site not specified N39.0 [place] [address], [place] [address]- 7986 Mar, ADHD (attention deficit hyperactivity disorder), combined type F90.2 ; Generalized anxiety disorder F41.1 and Dysthymic disorder F34.1 [place] [address], [place] [address]- 5092 February, ADHD (attention deficit hyperactivity disorder), combined type F90.2 ; Generalized anxiety disorder F41.1 and Dysthymic disorder F34.1 [place] [address], [place] [address]- 7203 February, [place] [address] [place] [id number] [place] [address] 88091- 8482 February, [place] [address] [place] [id number] [place] [address] 74629- 3875 February, Hypertension I10 and Weight gain R63.5 [place] [address] [place] [id number] [place] [address] 19027- 0274 February, Major depressive disorder, recurrent, moderate F33.1 and Generalized anxiety disorder F41.1 [place] [address] [place] [id number] [place] [address] 95658- 5194 February, ADHD (attention deficit hyperactivity disorder), combined type F90.2 ; Generalized anxiety disorder F41.1 and Dysthymic disorder F34.1 [place] [address] [place] [id number] [place] [address] 87103- 7765 February, [place] [address] [place] [id number] [place] [address] 10000- 2902 February, Asthma J45.909 ; Weight gain R63.5 ; Hypertension I10 ; Rheumatoid arthritis M06.9 and Chronic pain syndrome G89.4 [place] [address], [place] [address]- 5931 Jan, ADHD (attention deficit hyperactivity disorder), combined type F90.2 ; Generalized anxiety disorder F41.1 and Dysthymic disorder F34.1 [place] [address], [place] [address]- 4373 Dec, ADHD (attention deficit hyperactivity disorder), combined type F90.2 ; Generalized anxiety disorder F41.1 and Dysthymic disorder F34.1 [place] [address], [place] [address]- 1662 Dec, [place] [address] [place] [id number] [address]- 7412 Nov, [facility] [address] [place] [address]- 0824 Nov, [facility] [address], [place] [address]- 2056 Nov, [facility] [address], [place] [address]- 8656 Nov, [facility] [id number] [place] [address] 44740- 0193 Oct, [facility] [id number] [place] [address] 53279- 0587 Oct, [facility] [address], [place] [address]- 4164 Oct, [facility] [address], [place] [address]- 1024 Sep, [facility] [address], [place] [address]- 6905 Sep, [facility] [address], [place] [address] Sep, Agoraphobia with panic disorder F40.01 ; Attention-deficit hyperactivity disorder, combined type F90.2 and Dysthymic disorder F34.1 [facility] [id number], [place] [address] Aug, [facility] [id number] [address] Aug, [facility] [id number] [address] Aug, [facility] [id number] [address] Aug, Dysthymic disorder F34.1 ; Generalized anxiety disorder F41.1 and ADHD (attention deficit hyperactivity disorder), combined type F90.2 [facility] [id number], [place] [address] Aug, ADHD (attention deficit hyperactivity disorder), combined type F90.2 ; Generalized anxiety disorder F41.1 and Dysthymic disorder F34.1 [facility] [id number] [address] Jul, Urinary tract infection, site not specified N39.0 ; Hypotension, unspecified I95.9 and Breast cancer screening Z12.39 [facility] [id number] [place] [address] Jul, [facility] [id number] [place] [address] Jul, [facility] [id number] [place] [address] 86544- 8672 Jul, Urinary tract infection, site not specified N39.0 ; Nausea R11.0 ; Gastroenteritis K52.9 ; Renal failure N19 and Other hypotension I95.89 [facility] [id number] [place] [address] 80414- 2996 Jul, [facility] [id number] [place] [address] 63624- 8632 Jul, [facility] [address], [place] [address] 49[address] Jul, [facility] [id number] [place] [address] 50925- 7995 Jun, [facility] [id number] [place] [address] 17289- 1773 Jun, Major depression in partial remission 296.25 ; Generalized anxiety disorder 300.02 and ADHD, predominantly inattentive type 314.01 [facility] [address], [place] [address] 8[address] May, [facility] [id number] [place] [address] 24343- 5951 Apr, Major depressive disorder, recurrent episode, severe, without mention of psychotic behavior 296.33 ; Agoraphobia with panic disorder 300.21 and Generalized anxiety disorder 300.02 [address] [id number] [place] [address] 69372- 9973 Apr, ADHD (attention deficit hyperactivity disorder), combined type 314.01 ; Generalized anxiety disorder 300.02 and Dysthymic disorder 300.[address] 17957- 9584 Apr, CAD (coronary artery disease) 414.00 ; HTN (hypertension) 401.9 and Tobacco use 305.[address] 90245- 7456 Apr, [place] [address] 77388- 8971 Mar, ADHD (attention deficit hyperactivity disorder), combined type 314.01 ; Generalized anxiety disorder 300.02 ; Dysthymic disorder 300.4 ; No condition on Allison II V71.09 ; Rheumatoid arthritis 714.0 ; Incontinence 788.30 ; Irritable bowel syndrome 564.1 ; Osteoporosis 733.00 and Chronic pain 338.29 [place] [id number] [place] [address] 86128- 6453 Mar, Agoraphobia with panic disorder 300.21 and Major depressive disorder, recurrent episode, moderate 296.32 [place] [id number] [place] [address] 59247- 7641 Mar, [place] [id number] [place] [address] 25842- 3918 February, [place] [address] 99801- 5892 February, Agoraphobia with panic disorder 300.21 and Major depressive disorder, recurrent episode, moderate 296.32 [id number] [place] [address] 67716- 0439 February, [facility] [place] [facility] [address] [id number] [place] [address]- 3745 14 Jan, 2015 [facility] [place] [facility] [address] [id number] [place] [address]- 3992 13 Jan, 2015 [facility] [place] [facility] [address] [id number] [place] [address]- 3754 24 Dec, 2014 [facility] [place] [facility] [address] [id number] [place] [address]- 2702 24 Dec, 2014 [facility] [place] [facility] [address] [id number] [place] [address]- 8939 Dec, [facility] [place] [facility] [address] [id number] [place] [address]- 9215 Dec, [facility] [place] [facility] [address] [facility] [id number] [place] [address]- 5238 Dec, [facility] [place] [facility] [address] [facility] [id number] [place] [address]- 4757 Dec, [facility] [place] [facility] [address] [id number] [place] [address]- 9635 Nov, [facility] [place] [facility] [address] [facility] [id number] [place] [address]- 1514 Nov, [facility] [place] [facility] [address] [facility] [id number] [place] [address]- 3399 Nov, [facility] [place] [facility] [address] [facility] [id number] [place] [address]- 5340 Nov, 2014 [facility] [place] [facility] [address] [facility] [id number] [place] [address]- 4390 Nov, [facility] [place] [facility] [address] [id number] [place] [address]- 6022 17 Nov, 2014 [facility] [place] [facility] [address] [facility] [id number] [place] [address]- 6289 10 Nov, 2014 [facility] [place] [facility] [address] [facility] [id number], [place] [address]- 6585 Nov, [facility] [address] [id number] [place] [address]- 8689 Oct, [facility] [place] [facility] [address] [id number] [place] [address]- 4347 Oct, [facility] [place] [facility] [address] [facility] [id number] [place] [address]- 1763 Oct, [facility] [place] [facility] [address] [id number] [place] [address]- 3009 Oct, [facility] [place] [facility] [address] [id number] [place] [address]- 4566 Oct, [facility] [place] [facility] [address] [facility] [id number] [place] [address]- 2452 Oct, [facility] [address] [facility] [id number] [place] [address]- 8163 Sep, [facility] [place] [facility] [address] [id number] [place] [address]- 8237 Sep, [facility] [place] [facility] [address] [facility] [id number] [place] [address]- 2724 Sep, [facility] [place] [facility] [address] [facility] [id number] [place] [address]- 8157 Sep, [facility] [place] [facility] [address] [facility] [id number] [place] [address]- 1241 Sep, [facility] [place] [facility] [address] [id number], [place] [address]- 3371 Sep, [facility] [place] [facility] [address] [id number] [place] [address]- 5637 Sep, [facility] [place] [facility] [address] [facility] [id number] [place] [address]- 2021 Aug, [facility] [place] [facility] [address] [facility] [id number] [place] [address]- 7916 Aug, [facility] [place] [facility] [address] [id number] [place] [address]- 3838 18 Aug, 2014 [facility] [place] [facility] [address] [id number] [place] [address]- 0556 Aug, [facility] [place] [facility] [address] [id number] [place] [address]- 1168 Aug, [facility] [place] [facility] [address] [id number] [place] [address]- 9760 Aug, [facility] [place] [facility] [address] [id number] [place] [address]- 5796 Jul, [facility] [place] [facility] [address] [id number] [place] [address]- 0293 Jul, [facility] [place] [facility] [address] [id number] [place] [address]- 3845 Jul, [facility] [place] [facility] [address] [id number] [place] [address]- 2329 Jul, [facility] [place] [facility] [address] [id number] [place] [address]- 8844 Jul, [facility] [place] [facility] [address] [id number] [place] [address]- 5603 Jul, [facility] [place] [facility] [address] [id number] [place] [address]- 0668 Jun, [facility] [place] [facility] [address] [id number] [place] [address]- 4684 Jun, [facility] [place] [facility] [address] [id number] [place] [address]- 8172 May, [facility] [place] [facility] [address] [id number] [place] [address]- 4936 May, [facility] [place] [facility] [address] [id number] [place] [address]- 2546 Apr, [facility] [place] [facility] [address] [id number] [place] [address]- 3777 Apr, [facility] [place] [facility] [address] [id number] [place] [address]- 3840 Apr, [facility] [place] [facility] [address] [id number] [place] [address]- 0009 Apr, [facility] [place] [facility] [address] [id number] [place] [address]- 6121 Mar, [facility] [place] [facility] [address] [id number] [place] [address]- 3205 Mar, [facility] [place] [facility] [address] [id number] [place] [address]- 3041 Mar, [facility] [place] [facility] [address] [id number] [place] [address]- 8543 Mar, [facility] [place] [facility] [address] [id number] [place] [address]- 6453 February, [facility] [place] [facility] [address] [id number] [place] [address]- 8365 February, [facility] [place] [facility] [address] [id number] [place] [address]- 3956 February, [facility] [place] [facility] [address] [id number] [place] [address]- 0729 February, [facility] [place] [facility] [address] [id number] [place] [address]- 7993 February, [facility] [place] [facility] [address] [id number] [place] [address]- 3491 February, [facility] [place] [facility] [address] [id number] [place] [address]- 2116 Jan, [facility] [place] [facility] [address] [id number] [place] [address]- 9457 Jan, [facility] [place] [facility] [address] [id number] [place] [address]- 2330 Dec, [facility] [place] [facility] [address] [id number] [place] [address]- 9167 Dec, [facility] [address] [id number] [place] [address]- 7656 Nov, [facility] [address] [id number] [place] [address]- 5316 Nov, [facility] [address] [id number] [place] [address]- 4165 Oct, [facility] [address] [id number] [place] [address]- 3936 Oct, [facility] [address] [id number] [place] [address]- 5161 Oct, [facility] [address] [id number] [place] [address]- 1040 Oct, [facility] [address] [id number] [place] [address]- 2062 Sep, [facility] [address] [id number] [place] [address]- 4668 Sep, [facility] [address] [id number] [place] [address]- 0864 Sep, [facility] [address] [facility] [id number] [place] [address]- 2657 Sep, [facility] [address] [id number] [place] [address]- 0286 Sep, [facility] [address] [id number] [place] [address]- 5977 Sep, [facility] [place] [facility] [address] [id number] [place] [address]- 6569 Sep, [facility] [place] [facility] [address] [id number] [place] [address]- 3648 Sep, [facility] [address] [id number] [place] [address]- 2481 Aug, [facility] [place] [facility] [address] [id number] [place] [address]- 4506 Aug, [facility] [place] [facility] [address] [id number] [place]31 Aug, [facility] [place] [facility] [address] [id number] [place] [address]- 6007 Aug, [facility] [place] [facility] [address] [id number] [place] [address]- 0853 Aug, [facility] [place] [facility] [address] [id number] [place] [address]- 9781 Aug, [facility] [place] [facility] [address] [id number] [place] [address]- 4205 Aug, [facility] [place] [facility] [address] [id number] [place] [address]- 4277 Aug, [facility] [place] [facility] [address] [id number] [place] [address]- 5740 Aug, [facility] [place] [facility] [address] [id number] [place] [address]- 7862 Jul, [facility] [place] [facility] [address] [id number] [place] [address]- 2071 Jun, [facility] [place] [facility] [address] [id number] [place] [address]- 7231 May, [facility] [place] [facility] [address] [id number], [place] [address]- 8707 May, [facility] [place] [facility] [address] [id number] [place] [address]- 5940 May, [facility] [place] [facility] [address] [id number] [place] [address]- 8200 Apr, [facility] [place] [facility] [address] [id number], [place] [address]- 0790 Mar, [facility] [place] [facility] [address] [id number], [place] [address]- 2119 February, [facility] [address] [id number] [place] [address]- 7780 Oct, [facility] [place] [facility] [address] [id number] [place] [address]- 7713 Oct, [facility] [place] [facility] [address] [id number] [place] [address]- 6785 Oct, [facility] [place] [facility] [address] [id number] [place] [address]- 7535 Oct, [facility] [place] [facility] [address] [id number] [place] [address]- 2228 Oct, [facility] [place] [facility] [address] [id number] [place] [address]- 4454 Oct, [facility] [place] [facility] [address] [id number] [place] [address]- 7968 Sep, [facility] [place] [facility] [address] [id number] [place] [address]- 7232 Sep, [facility] [place] [facility] [address] [id number] [place] [address]- 8208 Aug, [facility] [place] [facility] [address] [id number] [place] [address]- 9953 Aug, [facility] [place] [facility] [address] [id number], [place] [address]- 0492 Jul, [facility] [place] [facility] [address] [id number] [place] [address]- 8011 Jul, [facility] [place] [facility] [address] [id number] [place] [address]- 0824 Jul, [facility] [place] [facility] [address] [id number] [place] [address]- 1740 Jul, [facility] [place] [facility] [address] [id number] [place] [address]- 1566 Jul, [facility] [place] [facility] [address] [id number] [place] [address]- 2767 Jul, [facility] [place] [facility] [address] [id number] [place] [address]- 8474 Jul, [facility] [place] [facility] [address] [id number] [place] [address]- 8958 Jul, [facility] [place] [facility] [address] [id number] [place] [address]- 4416 Jun, [facility] [place] [facility] [address] [id number] [place] [address]- 8178 Jun, [facility] [place] [facility] [address] [id number] [place] [address]- 4236 May, [facility] [place] [facility] [address] [id number] [place] [address]- 5016 Apr, [facility] [place] [facility] [address] [id number] [place] [address]- 0462 Mar, [facility] [place] [facility] [address] [id number] [place] [address]- 7446 Mar, [facility] [place] [facility] [address] [id number] [place] [address]- 8876 Mar, [facility] [place] [facility] [address] [facility] [id number] [place] [address]- 1903 Mar, [facility] [place] [facility] [address] [id number] [place] [address]- 0620 Jan, [facility] [place] [facility] [address] [id number] [place] [address]- 0419 14 Nov, 2011 [facility] [place] [facility] [address] [id number] [place] [address]- 9155 Nov, [facility] [place] [facility] [address] [id number] [place] [address]- 9616 Nov, [facility] [place] [facility] [address] [id number] [place] [address]- 7948 Oct, [facility] [id number] [address]- 0472 Sep, [facility] [address], [place] [address]- 2646 Sep, [facility] [address], [place] [address]- 7914 Aug, [facility] [address], [place] [address]- 4673 Aug, [facility] [address], [place] [address]- 5681 Aug, [facility] [address], [place] [address]- 3934 Aug, [facility] [address], [place] [address]- 6946 Jul, [facility] [address], [place] [address]- 1554 May, [facility] [address], [place] [address]- 3281 Jan, [facility] [address], [place] [address]- 5055 Nov, [facility] [address], [place] [address]- 8441 Apr, [facility] [address] [id number], [place] [address]- 3087 Dec, [facility] [id number] [address]- 5065 Nov, IMMUNIZATIONS No Known Immunizations SOCIAL HISTORY Never Assessed REASON FOR VISIT f/u Peggy PLAN OF CARE Activity Details Follow Up 6 Weeks Reason: VITAL SIGNS Height 67 in 2018-04-04 Weight 214.5 lbs 2018-04-04 Heart Rate 92 bpm 2018-04-04 Respiratory Rate 2018-04-04 BMI 33.59 kg/m2 2018-04-04 Blood pressure systolic 134 mmHg 2018-04-04 Blood pressure diastolic 88 mmHg 2018-04-04 MEDICATIONS Medication Instructions Dosage Frequency Start Date End Date Duration Status Tramadol HCl 50 mg Orally 4 times a day PRN PAIN 1-2 tablets Active Abilify 5 MG Orally Once a day 1 tablet 24h February, Active Clopidogrel Bisulfate 75 MG Orally Once a day 1 tablet 24h 30 days Active Metoprolol Tartrate 25 MG Orally Twice a day 1 tablet with food 12h Active Albuterol Sulfate (2.5 MG/3ML) 0.083% Inhalation every 4 hours 3 ml as needed for cough or wheeze 4h 13 Jul, 2014 Active Zofran 4 MG Orally 3 times a day 1 tablet 8h May, 7 Active Venlafaxine HCl ER 150 MG Orally Once a day 2 tablet 24h Nov, Active Levocetirizine Dihydrochloride 5 mg Orally Once a day 1 tablet in the evening 24h Mar, 30 day(s) Active Pantoprazole Sodium 40 mg Orally Once a day 1 tablet 24h Sep, 30 days Active Cyclobenzaprine HCl 10 MG Orally 2 times a day 1 tablet as needed 12h Jul, 30 Active Gabapentin 600 MG Orally Three times a day 1 capsule 8h Nov, 30 Active Dicyclomine HCl 20 mg Orally 2 times a day and 1 additional daily prn 1 tablet February, Active Questran 4 GM/DOSE Orally Twice a day 1 scoop 12h Oct, 30 day(s ) Not-Taking Advair Diskus 100-50 MCG/DOSE Inhalation Twice a day 1 puff 12h Jul, 30 Active Ventolin HFA 108 (90 Base) MCG/ACT Inhalation every 6 hrs 2 puffs as needed 6h Aug, Active Xeljanz 5 mg 1 Tablet by Oral route 2 times per day Dec, Active Flonase 50 MCG/ACT Nasally Once a day 1 spray in each nostril 24h Mar, 30 days Active Xanax 0.5 MG Orally Twice a day 1 tablet as needed 12h Sep, Active Simvastatin 40 MG Orally Once a day 1 tablet 24h Active RESULTS No Results PROCEDURES Procedure Date Ordered Result Body Site [facility] VISIT ESTABLISHED PATIENT April 04, 2018 INSTRUCTIONS MEDICATIONS ADMINISTERED No Known Medications MEDICAL (GENERAL) HISTORY Type Description Date Medical History Cardiovascular [id number], non-obstructive per [facility] ( 01/2011) Dr. Mendoza Medical History Stress test 03/07/13-Dr. Kelly Dietrich normal Medical History Hypertension Medical History Asthma Medical History Gastrointestinal Disorder--IBS, GERD, Hx of fatty liver Medical History Hernia 1978 Medical History Cervical dysplasia 02/16-Pap LGSIL/[place]-mild dysplasia Medical History Hyperlipidemia Medical History Rheumatoid arthritis ([place]) in remission 11/27/14 pain she has probably [...] [facility] Hospital[facility] History Stroke 05/03/2017 Hospitalization History stroke 08/24/2017--09/01/2017
--- OUTSIDE RECORDS SUMMARY | 2018-06-12 15:48 | XMS REPORT ---
Author Author LORI SNOWDEN Organization [facility] Address [address] [place] [address] Care Team Providers Care Retirement Assistant Name Role Phone LORI SNOWDEN Unavailable PROBLEMS Type Condition ICD9-CM Code BHL03-ED Code Onset Dates Condition Status SNOMED Code Problem ADHD (attention deficit hyperactivity disorder), combined type F90.2 Active 96181287 Problem Generalized anxiety disorder F41.1 Active 57654646 Problem Asthma J45.909 Active 318998249 Problem Dysthymic disorder F34.1 Active 70809573 Problem Hypertension I10 Active 72940126 Problem Sleep apnea in adult G47.30 Active 75114147 Problem Chronic pain syndrome G89.4 Active 708186161 Problem Rheumatoid arthritis involving multiple sites, unspecified rheumatoid factor presence M06.9 Active 391371418 Problem Anxiety F41.9 Active 93376174 Problem Gastroesophageal reflux disease with esophagitis K21.0 Active 487980119 Problem Primary insomnia F51.01 Active 2464831 Problem Chronic obstructive pulmonary disease, unspecified COPD type J44.9 Active 71755165 Problem Arteriosclerotic coronary artery disease I25.10 Active 42820835 Problem Weight gain R63.5 Active 6777311 Problem Rheumatoid arthritis M06.9 Active 89484821 Problem Panic attacks F41.0 Active 405986385 Problem Irritable bowel syndrome with diarrhea K58.0 Active 961504681 Problem Seasonal allergies J30.2 Active 987263943 Problem Mild episode of recurrent major depressive disorder F33.0 Active 253184115 Problem Neuropathy G62.9 Active 885401290 Problem Other insomnia G47.09 Active 120576211 Problem Mixed hyperlipidemia E78.2 Active 325392265 Problem Hyperinsulinemia E16.1 Active 21620171 Problem Other half-way (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 Active 139344651 Problem Cerebrovascular accident (CVA), unspecified mechanism I63.9 Active 243957134 Problem Chronic obstructive pulmonary disease, unspecified J44.9 Active [id number] Problem Obstructive sleep apnea G47.33 Active 16137737 ALLERGIES No Information ENCOUNTERS Encounter Location Date Diagnosis [facility] [id number] [place] [address] 87060- 8252 Jul, [facility] [id number] [place] [address] 61635- 5058 17 Jun, 2018 [facility] [address] 70255- 8623 Jun, [facility] [id number] [place] [address] 38294- 0079 May, [facility] [id number] [place] [address] 17788- 9631 May, Chronic obstructive pulmonary disease, unspecified COPD type J44.9 ; Primary insomnia F51.01 ; Fatigue, unspecified type R53.83 and Weight gain R63.5 [facility] [id number] [place] [address] 13047- 6232 May, Thrush B37.0 [facility] [id number] [place] [address] 59682- 2026 May, Mild episode of recurrent major depressive disorder F33.0 and Generalized anxiety disorder F41.1 [facility] [place] [id number] [place] [address] 51426- 1369 May, Thrush B37.0 [facility] [id number] [place] [address] 69840- 2604 Apr, Cough R05 [facility] [id number] [place] [address] 87096- 6118 Mar, Mild episode of recurrent major depressive disorder F33.0 [facility] [id number] [place] [address] 48754- 6281 Mar, Mild episode of recurrent major depressive disorder F33.0 and Generalized anxiety disorder F41.1 [facility] [place] [id number] [place] [address] 78419- 2650 Mar, Seasonal allergies J30.2 [facility] [id number] [place] [address] 52560- 6248 Mar, Seasonal allergies J30.2 [facility] [id number] [place] [address] 33931- 8904 February, Generalized anxiety disorder F41.1 [facility] [id number] [place] [address] 72170 -4966 February, Cough R05 and Seasonal allergies J30.2 [facility] [id number] [place] [address] 72665- 1338 February, Generalized anxiety disorder F41.1 and Mild episode of recurrent major depressive disorder F33.0 [facility] [id number] [place] [address] 03299- 6283 February, 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 ; Anxiety F41.9 ; Panic attacks F41.0 and Irritable bowel syndrome with diarrhea K58.0 [facility] [id number] [place] [address] 54518- 5092 February, [facility] [id number] [place] [address] 55332- 2778 Jan, Mixed hyperlipidemia E78.2 [facility] [id number] [place] [address] 50772- 3897 Jan, [facility] [id number] [place] [address] 22488- 1922 Jan, [facility] [id number] [place] [address] 92723- 0338 Jan, [facility] [id number] [place] [address] 62304- 1362 Jan, [facility] [id number] [place] [address] 55183- 4375 Dec, [facility] [id number] [place] [address] 09938- 5662 Dec, [facility] [id number] [place] [address] 49599- 2062 Dec, [facility] [id number] [place] [address] 40140- 2249 Nov, Dysthymic disorder F34.1 [facility] [address] 29136- 4742 Oct, [facility] [id number] [place] [address] 95716- 9046 Oct, [facility] [id number] [place] [address] 42892- 6653 Oct, [facility] [id number] [place] [address] 25820- 0799 Oct, Diarrhea, unspecified type R19.7 and Dysuria R30.0 [facility] [id number] [place] [address] 51274- 6960 Oct, [facility] [id number] [place] [address] 57686- 1621 Sep, [facility] [id number] [place] [address] 82910- 9519 Sep, [place] [id number] [place] [address] 11835- 6513 Sep, Anxiety F41.9 [facility] [id number] [place] [address] 25190- 8231 Sep, Cerebrovascular accident (CVA), unspecified mechanism I63.9 ; Mixed hyperlipidemia E78.2 ; Gastroesophageal reflux disease with esophagitis K21.0 and Anxiety F41.9 [facility] [id number] [place] [address] 28317- 6353 Sep, [facility] [id number] [place] [address] 89937- 8366 Aug, Chronic obstructive pulmonary disease, unspecified J44.9 ; Asthma J45.909 ; Nausea R11.0 ; Dysthymic disorder F34.1 ; Cerebrovascular accident (CVA), unspecified mechanism I63.9 and Rheumatoid arthritis M06.9 [facility] [id number] [place] [address] 47370- 0195 Aug, Nausea R11.0 ; Encounter for immunization Z23 ; Sleep apnea in adult G47.30 ; Rheumatoid arthritis involving multiple sites, unspecified rheumatoid factor presence M06.9 ; Generalized anxiety disorder F41.1 ; Dysthymic disorder F34.1 and Asthma J45.909 [facility] [address] 78935- 4011 Jul, [place] [address] 80724- 1296 May, ADHD (attention deficit hyperactivity disorder), combined type F90.2 ; Generalized anxiety disorder F41.1 and Persistent depressive disorder F34.1 [place] [address] 98374- 4550 May, Cerebrovascular accident (CVA), unspecified mechanism I63.9 [facility] [address] 33430- 2842 Apr, Mixed hyperlipidemia E78.2 and Cerebrovascular accident (CVA ), unspecified mechanism I63.9 [facility] [place] [id number] [place] [address] 11022- 3972 Apr, Generalized anxiety disorder F41.1 [facility] [address] 19274- 6728 Apr, Bronchitis J40 and Tobacco use Z72.0 [facility] [facility] [address] 31876- 0980 Apr, Mixed hyperlipidemia E78.2 [facility] [place] [address] 84546- 8332 Apr, Other half-way (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 [facility] [id number] [place] [address] 13007- 9930 Apr, [facility] [id number] [place] [address] 27529- 7665 Apr, Generalized anxiety disorder F41.1 [facility] [id number] [place] [address] 02451- 1319 Apr, Obstructive sleep apnea G47.33 and Hyperinsulinemia E16.1 [facility] [id number] [place] [address] 83508- 1815 Apr, ADHD (attention deficit hyperactivity disorder), combined type F90.2 ; Generalized anxiety disorder F41.1 and Persistent depressive disorder F34.1 [facility] [place] [id number] [place] [address] 49848- 0531 Mar, [facility] [id number] [place] [address] 54455- 6373 Mar, Generalized anxiety disorder F41.1 [facility] [place] [id number] [place] [address] 94624- 9225 Mar, Tarsal tunnel syndrome of both lower extremities G57.53 [facility] [id number] [place] [address] 29330- 1275 February, [facility] [id number] [place] [address] 52699- 1909 February, [facility] [id number] [place] [address] 77979- 9381 February, Asthma J45.909 [facility] [id number] [place] [address] 21839- 6871 February, Generalized anxiety disorder F41.1 [facility] [id number] [place] [address] 37140- 2742 February, Hypoxemia R09.02 ; Hyperglycemia R73.9 ; Rheumatoid arthritis M06.9 and Generalized anxiety disorder F41.1 [facility] [id number] [place] [address] 70052- 3567 February, [facility] [id number] [place] [address] 90418- 3744 Jan, Chronic obstructive pulmonary disease, unspecified J44.9 [facility] [id number] [place] [address] 45278- 9139 Jan, Chronic pain syndrome G89.4 [facility] [id number] [place] [address] 73366- 1250 Jan, Hypoxemia R09.02 [facility] [address] 66849- 9127 Jan, [facility] [place] [id number] [place] [address] 49016- 0278 Jan, Chronic obstructive pulmonary disease, unspecified J44.9 ; Hypoxemia R09.02 ; Other insomnia G47.09 and Left anterior shoulder pain M25.512 [facility] [place] [id number] [place] [address] 52406- 8536 Jan, Numbness in feet R20.0 and Neuropathy G62.9 [facility] [id number] [place] [address] 76622- 0106 Jan, [facility] [place] [id number] [place] [address] 40140- 8261 Dec, Acute pain of left shoulder M25.512 [facility] [id number] [place] [address] 14326- 9666 Dec, Acute pain of left shoulder M25.512 [facility] [id number] [place] [address] 34316- 0431 Dec, Generalized anxiety disorder F41.1 [facility] [id number] [place] [address] 32593- 6624 Dec, Generalized anxiety disorder F41.1 [facility] [id number] [place] [address] 86235- 4737 Nov, ADHD (attention deficit hyperactivity disorder), combined type F90.2 ; Generalized anxiety disorder F41.1 and Persistent depressive disorder F34.1 [facility] [id number] [place] [address] 25560- 1308 Nov, Acute pain of left shoulder M25.512 [facility] [address] 31689- 0594 Nov, ADHD (attention deficit hyperactivity disorder), combined type F90.2 ; Generalized anxiety disorder F41.1 and Persistent depressive disorder F34.1 [facility] [place] [address] 79328- 8787 Nov, Chronic pain syndrome G89.4 [facility] [address] 05073- 3295 Nov, Chronic pain syndrome G89.4 [facility] [id number] [place] [address] 36793- 6584 Nov, Acute pain of left shoulder M25.512 [facility] [id number] [place] [address] 86671- 7445 Nov, Generalized anxiety disorder F41.1 [facility] [id number] [place] [address] 43790- 3017 Nov, Acute pain of left shoulder M25.512 [facility] [facility] [id number] [place] [address] 91275- 2679 Nov, ADHD (attention deficit hyperactivity disorder), combined type F90.2 ; Generalized anxiety disorder F41.1 and Persistent depressive disorder F34.1 [facility] [place] [id number] [place] [address] 02011- 9749 Nov, Acute pain of left shoulder M25.512 ; Generalized anxiety disorder F41.1 ; Chronic pain syndrome G89.4 ; Hyperinsulinemia E16.1 ; Pain of left foot M79.672 and Pain in right foot M79.671 [place] [facility] [address] [place] [address] 89278- 3824 Oct, ADHD (attention deficit hyperactivity disorder), combined type F90.2 ; Generalized anxiety disorder F41.1 and Dysthymic disorder F34.1 [facility] [place] [id number] [place] [address] 41990- 4769 Sep, [facility] [address] 56125- 8484 Sep, [facility] [id number] [place] [address] 73620- 0964 Sep, Routine gynecological examination V72.31 ; Cervical cancer screening Z12.4 ; Breast cancer screening Z12.39 ; Colon cancer screening Z12.11 ; Hypokalemia E87.6 ; Herpes simplex type 1 infection B00.9 and Abscess of right axilla L02.411 [facility] [id number] [place] [address] 88526- 7961 Sep, [facility] [place] [id number] [place] [address] 81971- 6886 Sep, ADHD (attention deficit hyperactivity disorder), combined type F90.2 ; Generalized anxiety disorder F41.1 and Dysthymic disorder F34.1 [facility] [place] [id number] [place] [address] 59063- 0706 Aug, [facility] [place] [id number] [place] [address] 99708- 7193 Aug, [facility] [id number] [place] [address] 67273- 5110 Aug, Generalized anxiety disorder F41.1 [facility] [id number] [place] [address] 68219- 5727 Aug, ADHD (attention deficit hyperactivity disorder), combined type F90.2 ; Generalized anxiety disorder F41.1 and Dysthymic disorder F34.1 [place] [address] [place] [address]- 2267 Jul, Chronic pain syndrome G89.4 ; Hypertension I10 ; Hypokalemia E87.6 ; Asthma J45.909 and Nausea R11.0 [facility] [id number] [place] [address] 87935- 0883 Jul, [facility] [facility] [address] 15912- 5097 Jul, Asthma J45.909 [facility] [id number] [place] [address] 96940- 5056 Jul, ADHD (attention deficit hyperactivity disorder), combined type F90.2 ; Generalized anxiety disorder F41.1 and Dysthymic disorder F34.1 [facility] [id number] [place] [address] 53496- 8659 Jul, [facility] [address] 23701- 9623 Jul, Hypertension I10 ; Arteriosclerotic coronary artery disease I25.10 ; Mixed hyperlipidemia E78.2 ; Other half-way (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 and Hyperglycemia R73.9 [facility] [id number] [place] [address] 05597- 4107 16 Jun, 2016 Hypokalemia E87.6 and Hyperglycemia R73.9 [facility] [place] [id number] [place] [address] 66896- 3616 14 Jun, 2016 [place] [id number] [place] [address] 32207- 7405 13 Jun, 2016 Abnormal kidney function N28.9 [facility] [address] 84031- 8793 09 Jun, 2016 [place] [id number] [place] [address] 58908- 7504 06 Jun, 2016 ADHD (attention deficit hyperactivity disorder), combined type F90.2 ; Generalized anxiety disorder F41.1 and Dysthymic disorder F34.1 [place] [address] 06910- 7450 Jun, Generalized anxiety disorder F41.1 and Dysthymic disorder F34.1 [place] [address] 680341- 2286 Jun, Hypokalemia E87.6 [facility] [address] 97961- 3487 May, Hypokalemia E87.6 ; Vertigo R42 and Hyperinsulinemia E16.1 [facility] [address] 626280- 2966 May, [facility] [address] 585889- 0240 May, Abnormal kidney function N28.9 ; Hyperinsulinemia E16.1 and Nausea R11.0 [place] [address] 15685- 1061 May, Hypokalemia E87.6 ; Nausea R11.0 ; Epigastric pain R10.13 ; Dehydration E86.0 ; Diaphoresis R61 and Right arm pain M79.601 [facility] [address] 95721- 5286 May, [place] [address] 90959- 2202 May, Hypokalemia E87.6 [facility] [address] 90801- 0146 May, Hypokalemia E87.6 [facility] [address] 19641- 0877 Apr, [place] [address] 78959- 4566 Apr, ADHD (attention deficit hyperactivity disorder), combined type F90.2 ; Generalized anxiety disorder F41.1 and Dysthymic disorder F34.1 [place] [address] [place] [address] 53443- 8322 Apr, Right arm pain M79.601 and Hyperinsulinemia E16.1 [facility] [id number] [place] [address] 66502- 8722 Mar, [facility] [id number] [place] [address] 13980- 6656 Mar, [place] [id number] [place] [address] 83814- 3997 Mar, Hyperinsulinemia E16.1 ; Hyperlipidemia, unspecified hyperlipidemia type E78.5 ; Central venous catheter in place Z78.9 ; Generalized anxiety disorder F41.1 and Urinary tract infection, site not specified N39.0 [place] [id number] [place] [address] 65192- 7247 Mar, ADHD (attention deficit hyperactivity disorder), combined type F90.2 ; Generalized anxiety disorder F41.1 and Dysthymic disorder F34.1 [facility] [id number] [place] [address] 35133- 5837 February, ADHD (attention deficit hyperactivity disorder), combined type F90.2 ; Generalized anxiety disorder F41.1 and Dysthymic disorder F34.1 [place] [address] [place] [address] 32714- 6449 February, [place] [id number] [place] [address] 26524- 2893 February, [facility] [id number] [place] [address] 72332- 9409 February, Hypertension I10 and Weight gain R63.5 [facility] [id number] [place] [address] 79146- 0985 February, Major depressive disorder, recurrent, moderate F33.1 and Generalized anxiety disorder F41.1 [facility] [id number] [place] [address] 62974- 7947 February, ADHD (attention deficit hyperactivity disorder), combined type F90.2 ; Generalized anxiety disorder F41.1 and Dysthymic disorder F34.1 [facility] [id number] [place] [address] 42593- 2138 February, [facility] [id number] [place] [address] 48858- 5133 February, Asthma J45.909 ; Weight gain R63.5 ; Hypertension I10 ; Rheumatoid arthritis M06.9 and Chronic pain syndrome G89.4 [facility] [id number] [place] [address] 42438- 9479 Jan, ADHD (attention deficit hyperactivity disorder), combined type F90.2 ; Generalized anxiety disorder F41.1 and Dysthymic disorder F34.1 [facility] [id number] [place] [address] 48421- 8044 Dec, ADHD (attention deficit hyperactivity disorder), combined type F90.2 ; Generalized anxiety disorder F41.1 and Dysthymic disorder F34.1 [facility] [address] [place] [address] 48125- 9014 Dec, [facility] [id number] [place] [address] 96895- 3742 Nov, [facility] [id number] [address]- 8907 Nov, [facility] [id number] [place] [address] 51467- 5306 Nov, [facility] [id number] [address]- 9501 Nov, [facility] [id number] [place] [address] 91235- 2629 Oct, [facility] [id number] [address]- 9638 Oct, [facility] [id number] [address]- 2176 Oct, [facility] [id number] [address]- 0505 Sep, [facility] [id number] 4802 Sep, [facility] [id number] [place] [address] 32647- 6745 Sep, Agoraphobia with panic disorder F40.01 ; Attention-deficit hyperactivity disorder, combined type F90.2 and Dysthymic disorder F34.1 [facility] [address] [place] [address] 54369- 9235 Aug, [facility] [id number] [address]- 3025 Aug, [facility] [id number] [place] [address] 07141- 2309 Aug, [facility] [id number] [address]- 2460 Aug, Dysthymic disorder F34.1 ; Generalized anxiety disorder F41.1 and ADHD (attention deficit hyperactivity disorder), combined type F90.2 [facility] [id number] [address]- 0010 Aug, ADHD (attention deficit hyperactivity disorder), combined type F90.2 ; Generalized anxiety disorder F41.1 and Dysthymic disorder F34.1 [facility] [id number] [address]- 5663 Jul, Urinary tract infection, site not specified N39.0 ; Hypotension, unspecified I95.9 and Breast cancer screening Z12.39 [facility] [id number], [place] [address] Jul, [facility] [id number] [address] Jul, [facility] [id number] [place] [address] Jul, Urinary tract infection, site not specified N39.0 ; Nausea R11.0 ; Gastroenteritis K52.9 ; Renal failure N19 and Other hypotension I95.89 [place] [address] [place] [id number] [place] [address] Jul, [place] [address] [address] Jul, [facility] [address] [place] [id number] [place] [address] Jul, [place] [address] [address] Jun, [place] [address] [place] [id number] [place] [address] Jun, Major depression in partial remission 296.25 ; Generalized anxiety disorder 300.02 and ADHD, predominantly inattentive type 314.01 [place] [id number] [place] [address] May, [address] [address] Apr, Major depressive disorder, recurrent episode, severe, without mention of psychotic behavior 296.33 ; Agoraphobia with panic disorder 300.21 and Generalized anxiety disorder 300.02 [place] [id number] [place] [address] Apr, ADHD (attention deficit hyperactivity disorder), combined type 314.01 ; Generalized anxiety disorder 300.02 and Dysthymic disorder 300.4 [address] [place] [id number] [place] [address] 15828- 7172 Apr, CAD (coronary artery disease) 414.00 ; HTN (hypertension) 401.9 and Tobacco use 305.1 [address] [id number] [place] [address] 13168- 8275 Apr, [id number] [place] [address] 82104- 7239 Mar, ADHD (attention deficit hyperactivity disorder), combined type 314.01 ; Generalized anxiety disorder 300.02 ; Dysthymic disorder 300.4 ; No condition on [place] V71.09 ; Rheumatoid arthritis 714.0 ; Incontinence 788.30 ; Irritable bowel syndrome 564.1 ; Osteoporosis 733.00 and Chronic pain 338.29 [facility] [id number] [place] [address] 43220- 1622 16 Mar, 2015 Agoraphobia with panic disorder 300.21 and Major depressive disorder, recurrent episode, moderate 296.32 [address] [address] [address] 799886- 4394 Mar, [facility] [id number] [place] [address] 01117- 4263 February, [facility] [id number] [place] [address] 51248- 4511 February, Agoraphobia with panic disorder 300.21 and Major depressive disorder, recurrent episode, moderate 296.32 [facility] [id number] [place] [address] 56147- 3860 February, [facility] [id number] [place] [address] 46399- 4832 Jan, [facility] [id number] [place] [address] 49031- 6790 Jan, [facility] [id number] [place] [address] 39596- 5574 Dec, [facility] [id number] [place] [address] 77021- 7673 Dec, [facility] [id number] [place] [address] 01794- 1233 Dec, [facility] [id number] [place] [address] 90313- 1359 Dec, [facility] [id number] [place] [address]- 2961 Dec, [facility] [place] [facility] [address] [id number] [place] [address]- 0947 Dec, [facility] [place] [facility] [address] [id number] [place] [address]- 3091 Nov, 2014 [facility] [place] [facility] [address] [id number] [place] [address]- 8162 Nov, 2014 [facility] [place] [facility] [address] [id number] [place] [address]- 9104 Nov, [facility] [place] [facility] [address] [id number] [place] [address]- 4489 Nov, 2014 [facility] [place] [facility] [address] [id number] [place] [address]- 4773 Nov, [facility] [place] [facility] [address] [id number] [place] [address]- 5260 Nov, [facility] [place] [facility] [address] [id number] [place] [address]- 1365 Nov, [facility] [place] [facility] [address] [facility] [facility] [id number] [place] [address]- 8299 Nov, [facility] [place] [facility] [address] [facility] [facility] [id number] [place] [address]- 4575 Oct, [facility] [place] [facility] [address] [id number] [place] [address]- 6014 Oct, [facility] [place] [facility] [address] [id number] [place] [address]- 2980 Oct, [facility] [place] [facility] [address] [id number] [place] [address]- 7939 Oct, [facility] [place] [facility] [address] [id number] [place] [address]- 6134 Oct, [facility] [place] [facility] [address] [id number] [place] [address]- 0651 Oct, [facility] [place] [facility] [address] [id number] [place] [address]- 5019 Sep, [facility] [place] [facility] [address] [id number] [place] 7568 Sep, [facility] [place] [facility] [address] [id number] [place] [address]- 7574 Sep, [facility] [place] [facility] [address] [id number] [place] [address]- 2501 Sep, [facility] [place] [facility] [address] [id number] [place] [address]- 6441 Sep, [facility] [place] [facility] [address] [id number] [place] [address]- 2063 Sep, [facility] [place] [facility] [address] [id number] [place] [address]- 2074 Sep, [facility] [place] [facility] [address] [id number] [place] [address]- 0486 Aug, [facility] [place] [facility] [address] [id number] [place] [address]- 7997 Aug, [facility] [place] [facility] [address] [id number] [place] [address]- 4157 Aug, [facility] [place] [facility] [address] [id number] [place] [address]- 1119 Aug, [facility] [place] [facility] [address] [id number], [place] [address]- 8062 Aug, [facility] [place] [facility] [address] [id number] [place] [address]- 2289 Aug, [facility] [place] [facility] [address] [id number] [place] [address]- 3999 Jul, [facility] [place] [facility] [address] [id number] [place] [address]- 3599 Jul, [facility] [place] [facility] [address] [id number] [place] [address]- 6454 Jul, [facility] [place] [facility] [address] [id number] [place] [address]- 6786 Jul, [facility] [place] [facility] [address] [id number] [place] [address]- 7806 Jul, [facility] [place] [facility] [address] [id number] [place] [address]- 2455 Jul, [facility] [place] [facility] [address] [id number] [place] [address]- 8748 Jun, [facility] [place] [facility] [address] [id number] [place] [address]- 2138 Jun, [facility] [place] [facility] [address] [id number] [place] [address]- 9353 May, [facility] [place] [facility] [address] [id number] [place] [address]- 2485 May, [facility] [place] [facility] [address] [id number] [place] [address]- 2137 Apr, [facility] [place] [facility] [address] [id number] [place] [address]- 7498 Apr, [facility] [place] [facility] [address] [id number] [place] [address]- 2753 Apr, [facility] [place] [facility] [address] [id number] [place] [address]- 3527 Apr, [facility] [place] [facility] [address] [id number] [place] [address]- 9105 Mar, [facility] [place] [facility] [address] [id number] [place] [address]- 4038 Mar, [facility] [place] [facility] [address] [id number] [place] [address]- 0901 Mar, [facility] [place] [facility] [address] [id number] [place] 0692 Mar, [facility] [place] [facility] [address] [id number] [place] [address]- 4279 February, [facility] [place] [facility] [address] [id number] [place] [address]- 8426 February, [facility] [place] [facility] [address] [id number] [place] [address]- 3591 February, [facility] [place] [facility] [address] [id number] [place] [address]- 7837 February, [facility] [place] [facility] [address] [id number] [place] [address]- 3358 February, [facility] [place] [facility] [address] [id number] [place] [address]- 3229 February, [facility] [place] [facility] [address] [id number] [place] [address]- 7288 Jan, [facility] [place] [facility] [address] [id number] [place] [address]- 6283 Jan, [facility] [place] [facility] [address] [id number] [place] [address]- 5767 Dec, [facility] [place] [facility] [address] [id number] [place] [address]- 9792 Dec, [facility] [place] [facility] [address] [id number] [place] [address]- 1316 Nov, [facility] [place] [facility] [address] [id number] [place] [address]- 1134 Nov, [facility] [place] [facility] [address] [id number] [place] [address]- 4517 Oct, [facility] [place] [facility] [address] [id number] [place] [address]- 0100 Oct, [facility] [place] [facility] [address] [id number] [place] [address]- 6874 Oct, [facility] [place] [facility] [address] [id number] [place] [address]- 0518 Oct, [facility] [address] [id number] [place] [address]- 5707 Sep, [facility] [place] [facility] [address] [id number] [place] [address]- 7707 Sep, [facility] [address] [id number] [place] [address]- 9080 Sep, [facility] [place] [facility] [address] [id number] [place] [address]- 7774 Sep, [facility] [address] [id number] [place] [address]- 9341 Sep, [facility] [place] [facility] [address] [id number] [place] [address]- 5066 Sep, [facility] [address] [id number] [place] [address]- 9669 Sep, [facility] [place] [facility] [address] [id number] [place] [address]- 4978 Sep, [facility] [place] [facility] [address] [id number] [place] [address]- 6280 Aug, [facility] [place] [facility] [address] [facility] [address] [facility] [id number] [place] [address]- 4249 Aug, [facility] [place] [facility] [address] [id number] [place] [address]- 6720 Aug, [facility] [place] [facility] [address] [id number], [place] [address]- 2038 Aug, [facility] [place] [facility] [address] [id number] [place] [address]- 5907 Aug, [facility] [place] [facility] [address] [id number] [place] [address]- 9163 Aug, [facility] [place] [facility] [address] [address] [facility] [id number], [place] [address]- 4524 Aug, [facility] [place] [facility] [address] [id number] [place] [address]- 8584 Aug, [facility] [place] [facility] [address] [id number] [place] [address]- 0628 Aug, [facility] [place] [facility] [address] [id number] [place] [address]- 2546 Jul, [facility] [place] [facility] [address] [id number] [place] [address]- 8927 Jun, [facility] [place] [facility] [address] [id number] [place] [address]- 4330 May, [facility] [place] [facility] [address] [id number] [place] [address]- 6066 May, [facility] [place] [facility] [address] [id number] [place] [address]- 9537 May, [facility] [place] [facility] [address] [id number] [place] [address]- 4537 Apr, [facility] [place] [facility] [address] [id number] [place] [address]- 7216 Mar, [facility] [place] [facility] [address] [id number] [place] [address]- 3559 February, [facility] [place] [facility] [address] [id number] [place] [address]- 5676 Oct, [facility] [place] [facility] [address] [id number] [place] [address]- 5347 Oct, [facility] [place] [facility] [address] [id number] [place] [address]- 9210 Oct, [facility] [place] [facility] [address] [id number] [place] [address]- 4661 Oct, [facility] [place] [facility] [address] [id number] [place] [address]- 0296 Oct, [facility] [place] [facility] [address] [id number] [place] [address]- 2596 Oct, [facility] [place] [facility] [address] [id number] [place] [address]- 7650 Sep, [facility] [place] [facility] [address] [id number] [place] [address]- 1336 Sep, [facility] [place] [facility] [address] [address] [facility] [id number] [place] [address] 2542 Aug, [facility] [place] [facility] [address] [id number] [place] [address]- 5303 Aug, [facility] [place] [facility] [address] [id number] [place] [address]- 9546 Jul, [facility] [place] [facility] [address] [id number] [place] [address]- 7978 Jul, [facility] [place] [facility] [address] [id number] [place] [address]- 3030 Jul, [facility] [place] [facility] [address] [id number] [place] [address]- 6575 Jul, [facility] [place] [facility] [address] [id number] [place] 6498 Jul, [facility] [place] [facility] [address] [id number] [place] [address]- 2706 Jul, [facility] [place] [facility] [address] [id number], [place] [address]- 8595 Jul, [facility] [place] [facility] [address] [id number], [place] [address]- 8323 Jul, [facility] [place] [facility] [address] [id number] [place] [address]- 6283 Jun, [facility] [place] [facility] [address] [address] [facility] [id number], [place] [address]- 9777 Jun, [facility] [place] [facility] [address] [id number] [place] [address] 2546 May, [facility] [place] [facility] [address] [id number] [place] [address]- 4746 Apr, [facility] [address] [id number] [place] [address]- 4155 Mar, [facility] [place] [facility] [address] [id number] [place] [address]- 2266 Mar, [facility] [place] [facility] [address] [id number] [place] [address]- 9483 Mar, [facility] [place] [facility] [address] [id number] [place] [address]- 7254 Mar, [facility] [place] [facility] [address] [id number] [place] [address]- 7808 Jan, [facility] [place] [facility] [address] [id number] [place] [address]- 5315 Nov, [facility] [place] [facility] [address] [id number] [place] [address]- 7310 Nov, [facility] [place] [facility] [address] [id number] [place] [address]- 9971 Nov, [facility] [place] [facility] [address] [id number] [place] [address]- 5129 Oct, [facility] [address] [id number] [place] [address]- 4580 Sep, [facility] [place] [facility] [address] [id number] [place] [address]- 2121 Sep, [facility] [place] [facility] [address] [id number] [place] [address]- 9501 Aug, [facility] [place] [facility] [address] [id number] [place] [address]- 6672 Aug, [facility] [place] [facility] [address] [id number] [place] [address]- 3096 Aug, [facility] [place] [facility] [address] [id number] [place] [address]- 7688 Aug, [facility] [address] [id number] [address]- 3786 Jul, [facility] [id number] [address] 2546 May, [facility] [id number] [address]- 4186 Jan, [facility] [id number] [place] [address] 78192- 4846 Nov, [facility] [id number] [place] [address] 92660- 5059 Apr, [facility] [id number] [place] [address] 52390- 8776 Dec, [facility] [id number], [place] [address]- 2086 Nov, IMMUNIZATIONS No Known Immunizations SOCIAL HISTORY Never Assessed REASON FOR VISIT CCM note PLAN OF CARE VITAL SIGNS MEDICATIONS Medication Instructions Dosage Frequency Start Date End Date Duration Status Levocetirizine Dihydrochloride 5 mg Orally Once a day 1 tablet in the evening 24h Mar, 30 day(s) Active RESULTS No Results PROCEDURES No Known procedures INSTRUCTIONS MEDICATIONS ADMINISTERED No Known Medications MEDICAL (GENERAL) HISTORY Type Description Date Medical History Cardiovascular jlpkcabf-FUV-Yebfpene, 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 Mendoza Medical History Stress test 03/07/13-Dr. Kelly Dietrich normal Medical History Hypertension Medical History Asthma Medical History Gastrointestinal Disorder--IBS, GERD, Hx of fatty liver Medical History Hernia 1979 Medical History Cervical dysplasia 02/16-Pap LGSIL/[place]-mild dysplasia Medical History Hyperlipidemia Medical History Rheumatoid [...] Kidney injury 07/10/15-07/11/2015 Hospitalization History Symptomatic Hypokalemia/Nause-[facility] 05/13/16 Hospitalization History Stroke 05/03/2017 Hospitalization History stroke 08/24/2017--09/01/2017
--- OUTSIDE RECORDS SUMMARY | 2018-06-12 15:49 | XMS REPORT ---
Author Author LORI SNOWDEN Organization [facility] Address [address] [place] [address] Care Team Providers Care [employer] Instructor Name Role Phone LORI SNOWDEN Unavailable PROBLEMS Type Condition ICD9-CM Code FWH38-QS Code Onset Dates Condition Status SNOMED Code Problem ADHD (attention deficit hyperactivity disorder), combined type F90.2 Active 55791737 Problem Generalized anxiety disorder F41.1 Active 82519080 Problem Asthma J45.909 Active 260256684 Problem Dysthymic disorder F34.1 Active 74298986 Problem Hypertension I10 Active 53267980 Problem Sleep apnea in adult G47.30 Active 19357335 Problem Chronic pain syndrome G89.4 Active 127553283 Problem Rheumatoid arthritis involving multiple sites, unspecified rheumatoid factor presence M06.9 Active 745070997 Problem Anxiety F41.9 Active 85886198 Problem Gastroesophageal reflux disease with esophagitis K21.0 Active 966411632 Problem Primary insomnia F51.01 Active 1828651 Problem Chronic obstructive pulmonary disease, unspecified COPD type J44.9 Active 53147721 Problem Arteriosclerotic coronary artery disease I25.10 Active 81321507 Problem Weight gain R63.5 Active 1428769 Problem Rheumatoid arthritis M06.9 Active 43768744 Problem Panic attacks F41.0 Active 649650516 Problem Irritable bowel syndrome with diarrhea K58.0 Active 982431971 Problem Seasonal allergies J30.2 Active 834136320 Problem Mild episode of recurrent major depressive disorder F33.0 Active 749055783 Problem Neuropathy G62.9 Active 104296239 Problem Other insomnia G47.09 Active 119275097 Problem Mixed hyperlipidemia E78.2 Active 213363136 Problem Hyperinsulinemia E16.1 Active 03401381 Problem Other half-way (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 Active 157763753 Problem Cerebrovascular accident (CVA), unspecified mechanism I63.9 Active 206955453 Problem Chronic obstructive pulmonary disease, unspecified J44.9 Active [id number] Problem Obstructive sleep apnea G47.33 Active 49075469 ALLERGIES No Information ENCOUNTERS Encounter Location Date Diagnosis [facility] [id number] [place] [address] 49230- 8161 Jul, [facility] [id number] [place] [address] 81381- 3593 17 Jun, 2018 [facility] [address] 93831- 7364 Jun, [facility] [id number] [place] [address] 35694- 5970 May, [facility] [id number] [place] [address] 47454- 6270 May, Chronic obstructive pulmonary disease, unspecified COPD type J44.9 ; Primary insomnia F51.01 ; Fatigue, unspecified type R53.83 and Weight gain R63.5 [facility] [id number] [place] [address] 22687- 0576 May, Thrush B37.0 [facility] [id number] [place] [address] 13845- 8272 May, Mild episode of recurrent major depressive disorder F33.0 and Generalized anxiety disorder F41.1 [facility] [id number] [place] [address] 70871- 5855 May, Thrush B37.0 [facility] [id number] [place] [address] 05451- 3855 Apr, Cough R05 [facility] [id number] [place] [address] 75498- 8616 Mar, Mild episode of recurrent major depressive disorder F33.0 [facility] [id number] [place] [address] 34536- 0938 Mar, Mild episode of recurrent major depressive disorder F33.0 and Generalized anxiety disorder F41.1 [facility] [id number] [place] [address] 83173- 9800 Mar, Seasonal allergies J30.2 [facility] [id number] [place] [address] 64405- 1989 Mar, Seasonal allergies J30.2 [facility] [id number] [place] [address] 23100- 5287 February, Generalized anxiety disorder F41.1 [facility] [id number] [place] [address] 12913 -5278 February, Cough R05 and Seasonal allergies J30.2 [facility] [id number] [place] [address] 85992- 3641 February, Generalized anxiety disorder F41.1 and Mild episode of recurrent major depressive disorder F33.0 [facility] [id number] [place] [address] 05252- 6393 February, Other long term care pharmacist (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 ; Anxiety F41.9 ; Panic attacks F41.0 and Irritable bowel syndrome with diarrhea K58.0 [facility] [id number] [place] [address] 15636- 5871 February, [facility] [id number] [place] [address] 98626- 8066 Jan, Mixed hyperlipidemia E78.2 [facility] [id number] [place] [address] 52531- 2579 Jan, [facility] [id number] [place] [address] 79639- 2822 Jan, [facility] [id number] [place] [address] 71867- 9384 Jan, [facility] [id number] [place] [address] 83200- 2618 Jan, [facility] [id number] [place] [address] 25607- 3363 Dec, [facility] [id number] [place] [address] 92761- 3608 Dec, [facility] [id number] [place] [address] 57350- 6893 Dec, [facility] [id number] [place] [address] 82643- 7758 Nov, Dysthymic disorder F34.1 [facility] [address] 61525- 7251 Oct, [facility] [id number] [place] [address] 44805- 8679 Oct, [facility] [id number] [place] [address] 93610- 9351 Oct, [facility] [id number] [place] [address] 52366- 8210 Oct, Diarrhea, unspecified type R19.7 and Dysuria R30.0 [facility] [id number] [place] [address] 11290- 8544 Oct, [facility] [id number] [place] [address] 52987- 2350 Sep, [facility] [id number] [place] [address] 73922- 2062 Sep, [facility] [id number] [place] [address] 76307- 2105 Sep, Anxiety F41.9 [facility] [id number] [place] [address] 70206- 7635 Sep, Cerebrovascular accident (CVA), unspecified mechanism I63.9 ; Mixed hyperlipidemia E78.2 ; Gastroesophageal reflux disease with esophagitis K21.0 and Anxiety F41.9 [facility] [id number] [place] [address] 91125- 7715 Sep, [facility] [id number] [place] [address] 26747- 8074 Aug, Chronic obstructive pulmonary disease, unspecified J44.9 ; Asthma J45.909 ; Nausea R11.0 ; Dysthymic disorder F34.1 ; Cerebrovascular accident (CVA), unspecified mechanism I63.9 and Rheumatoid arthritis M06.9 [facility] [id number] [place] [address] 01300- 9214 Aug, Nausea R11.0 ; Encounter for immunization Z23 ; Sleep apnea in adult G47.30 ; Rheumatoid arthritis involving multiple sites, unspecified rheumatoid factor presence M06.9 ; Generalized anxiety disorder F41.1 ; Dysthymic disorder F34.1 and Asthma J45.909 [facility] [address] 66976- 5618 Jul, [facility] [address] 31423- 0054 May, ADHD (attention deficit hyperactivity disorder), combined type F90.2 ; Generalized anxiety disorder F41.1 and Persistent depressive disorder F34.1 [facility] [address] 91073- 9730 May, Cerebrovascular accident (CVA), unspecified mechanism I63.9 [facility] [address] 57275- 0144 Apr, Mixed hyperlipidemia E78.2 and Cerebrovascular accident (CVA ), unspecified mechanism I63.9 [facility] [id number] [place] [address] 38219- 7064 Apr, Generalized anxiety disorder F41.1 [facility] [address] 27848- 7028 Apr, Bronchitis J40 and Tobacco use Z72.0 [facility] [address] 32829- 3828 Apr, Mixed hyperlipidemia E78.2 [facility] [address] 65823- 9199 Apr, Other half-way (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 [facility] [id number] [place] [address] 60326- 9805 Apr, [facility] [id number] [place] [address] 29017- 5579 Apr, Generalized anxiety disorder F41.1 [facility] [id number] [place] [address] 88205- 6259 Apr, Obstructive sleep apnea G47.33 and Hyperinsulinemia E16.1 [facility] [id number] [place] [address] 89798- 2761 Apr, ADHD (attention deficit hyperactivity disorder), combined type F90.2 ; Generalized anxiety disorder F41.1 and Persistent depressive disorder F34.1 [facility] [id number] [place] [address] 86217- 2206 Mar, [facility] [id number] [place] [address] 90078- 6384 Mar, Generalized anxiety disorder F41.1 [facility] [id number] [place] [address] 86972- 4067 Mar, Tarsal tunnel syndrome of both lower extremities G57.53 [facility] [id number] [place] [address] 74959- 0161 February, [facility] [id number] [place] [address] 37731- 6782 February, [facility] [id number] [place] [address] 03534- 5279 February, Asthma J45.909 [facility] [id number] [place] [address] 37134- 4510 February, Generalized anxiety disorder F41.1 [facility] [id number] [place] [address] 08482- 1565 February, Hypoxemia R09.02 ; Hyperglycemia R73.9 ; Rheumatoid arthritis M06.9 and Generalized anxiety disorder F41.1 [facility] [id number] [place] [address] 87480- 5934 February, [facility] [id number] [place] [address] 49861- 6318 Jan, Chronic obstructive pulmonary disease, unspecified J44.9 [facility] [id number] [place] [address] 02204- 1909 Jan, Chronic pain syndrome G89.4 [facility] [id number] [place] [address] 11227- 7116 Jan, Hypoxemia R09.02 [facility] [address] 99840- 1447 Jan, [facility] [id number] [place] [address] 25552- 0855 Jan, Chronic obstructive pulmonary disease, unspecified J44.9 ; Hypoxemia R09.02 ; Other insomnia G47.09 and Left anterior shoulder pain M25.512 [facility] [id number] [place] [address] 86689- 8962 Jan, Numbness in feet R20.0 and Neuropathy G62.9 [facility] [id number] [place] [address] 18091- 5912 Jan, [facility] [id number] [place] [address] 77185- 0157 Dec, Acute pain of left shoulder M25.512 [facility] [id number] [place] [address] 22429- 2415 Dec, Acute pain of left shoulder M25.512 [facility] [id number] [place] [address] 39713- 5799 Dec, Generalized anxiety disorder F41.1 [facility] [id number] [place] [address] 51075- 1285 Dec, Generalized anxiety disorder F41.1 [facility] [address] [place] [address] 51649- 3656 Nov, ADHD (attention deficit hyperactivity disorder), combined type F90.2 ; Generalized anxiety disorder F41.1 and Persistent depressive disorder F34.1 [facility] [id number] [place] [address] 55526- 5083 Nov, Acute pain of left shoulder M25.512 [facility] [address] 85763- 4264 Nov, ADHD (attention deficit hyperactivity disorder), combined type F90.2 ; Generalized anxiety disorder F41.1 and Persistent depressive disorder F34.1 [facility] [address] 44688- 9943 Nov, Chronic pain syndrome G89.4 [facility] [address] 25085- 4104 Nov, Chronic pain syndrome G89.4 [facility] [id number] [place] [address] 80547- 4877 Nov, Acute pain of left shoulder M25.512 [facility] [id number] [place] [address] 46620- 0290 Nov, Generalized anxiety disorder F41.1 [facility] [id number] [place] [address] 12961- 4428 Nov, Acute pain of left shoulder M25.512 [facility] [id number] [place] [address] 84364- 7346 Nov, ADHD (attention deficit hyperactivity disorder), combined type F90.2 ; Generalized anxiety disorder F41.1 and Persistent depressive disorder F34.1 [facility] [id number] [place] [address] 37814- 4610 Nov, Acute pain of left shoulder M25.512 ; Generalized anxiety disorder F41.1 ; Chronic pain syndrome G89.4 ; Hyperinsulinemia E16.1 ; Pain of left foot M79.672 and Pain in right foot M79.671 [facility] [address] [place] [address] 69973- 0188 Oct, ADHD (attention deficit hyperactivity disorder), combined type F90.2 ; Generalized anxiety disorder F41.1 and Dysthymic disorder F34.1 [facility] [id number] [place] [address] 49280- 0579 Sep, [facility] [address] 95286- 4648 Sep, [facility] [id number] [place] [address] 17437- 5891 Sep, Routine gynecological examination V72.31 ; Cervical cancer screening Z12.4 ; Breast cancer screening Z12.39 ; Colon cancer screening Z12.11 ; Hypokalemia E87.6 ; Herpes simplex type 1 infection B00.9 and Abscess of right axilla L02.411 [facility] [id number] [place] [address] 21762- 4957 Sep, [facility] [id number] [place] [address] 34062- 6602 Sep, ADHD (attention deficit hyperactivity disorder), combined type F90.2 ; Generalized anxiety disorder F41.1 and Dysthymic disorder F34.1 [facility] [id number] [place] [address] 29000- 4678 Aug, [facility] [id number] [place] [address] 50792- 6842 Aug, [facility] [id number] [place] [address] 09317- 3095 Aug, Generalized anxiety disorder F41.1 [facility] [id number] [place] [address] 94271- 3951 Aug, ADHD (attention deficit hyperactivity disorder), combined type F90.2 ; Generalized anxiety disorder F41.1 and Dysthymic disorder F34.1 [facility] [address] [place] [address]- 7247 Jul, Chronic pain syndrome G89.4 ; Hypertension I10 ; Hypokalemia E87.6 ; Asthma J45.909 and Nausea R11.0 [facility] [id number] [place] [address] 49796- 0912 Jul, [facility] [address] 76357- 6012 Jul, Asthma J45.909 [facility] [id number] [place] [address] 76406- 4501 Jul, ADHD (attention deficit hyperactivity disorder), combined type F90.2 ; Generalized anxiety disorder F41.1 and Dysthymic disorder F34.1 [facility] [id number] [place] [address] 98487- 1737 Jul, [facility] [address] 79933- 8878 Jul, Hypertension I10 ; Arteriosclerotic coronary artery disease I25.10 ; Mixed hyperlipidemia E78.2 ; Other half-way (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 and Hyperglycemia R73.9 [facility] [id number] [place] [address] 24340- 2279 16 Jun, 2016 Hypokalemia E87.6 and Hyperglycemia R73.9 [facility] [id number] [place] [address] 30838- 2617 14 Jun, 2016 [facility] [id number] [place] [address] 06840- 6193 13 Jun, 2016 Abnormal kidney function N28.9 [facility] [address] 13947- 9972 09 Jun, 2016 [facility] [id number] [place] [address] 74148- 3423 06 Jun, 2016 ADHD (attention deficit hyperactivity disorder), combined type F90.2 ; Generalized anxiety disorder F41.1 and Dysthymic disorder F34.1 [facility] [address] 78966- 5284 Jun, Generalized anxiety disorder F41.1 and Dysthymic disorder F34.1 [facility] [address]994- 5161 Jun, Hypokalemia E87.6 [facility] [address] 96087- 9297 May, Hypokalemia E87.6 ; Vertigo R42 and Hyperinsulinemia E16.1 [facility] [address] 279663- 4175 May, [facility] [address] 977080- 7086 May, Abnormal kidney function N28.9 ; Hyperinsulinemia E16.1 and Nausea R11.0 [facility] [address] 56138- 3647 May, Hypokalemia E87.6 ; Nausea R11.0 ; Epigastric pain R10.13 ; Dehydration E86.0 ; Diaphoresis R61 and Right arm pain M79.601 [facility] [address] 25174- 8988 May, [facility] [address] 83255- 7774 May, Hypokalemia E87.6 [facility] [address] 71635- 3045 May, Hypokalemia E87.6 [facility] [address] 42854- 4184 Apr, [facility] [address] 41122- 3744 Apr, ADHD (attention deficit hyperactivity disorder), combined type F90.2 ; Generalized anxiety disorder F41.1 and Dysthymic disorder F34.1 [facility] [address] [place] [address] 59645- 1427 Apr, Right arm pain M79.601 and Hyperinsulinemia E16.1 [facility] [id number] [place] [address] 79911- 5506 Mar, [facility] [id number] [place] [address] 93940- 2556 Mar, [facility] [id number] [place] [address] 89978- 0468 Mar, Hyperinsulinemia E16.1 ; Hyperlipidemia, unspecified hyperlipidemia type E78.5 ; Central venous catheter in place Z78.9 ; Generalized anxiety disorder F41.1 and Urinary tract infection, site not specified N39.0 [facility] [id number] [place] [address] 87151- 7375 Mar, ADHD (attention deficit hyperactivity disorder), combined type F90.2 ; Generalized anxiety disorder F41.1 and Dysthymic disorder F34.1 [facility] [id number] [place] [address] 99615- 0480 February, ADHD (attention deficit hyperactivity disorder), combined type F90.2 ; Generalized anxiety disorder F41.1 and Dysthymic disorder F34.1 [facility] [address] [place] [address] 18237- 6252 February, [facility] [id number] [place] [address] 01621- 3122 February, [facility] [id number] [place] [address] 26266- 5320 February, Hypertension I10 and Weight gain R63.5 [facility] [id number] [place] [address] 85613- 6634 February, Major depressive disorder, recurrent, moderate F33.1 and Generalized anxiety disorder F41.1 [facility] [id number] [place] [address] 62031- 5167 February, ADHD (attention deficit hyperactivity disorder), combined type F90.2 ; Generalized anxiety disorder F41.1 and Dysthymic disorder F34.1 [facility] [id number] [place] [address] 97328- 9251 February, [facility] [id number] [place] [address] 10454- 7602 February, Asthma J45.909 ; Weight gain R63.5 ; Hypertension I10 ; Rheumatoid arthritis M06.9 and Chronic pain syndrome G89.4 [facility] [id number] [place] [address] 99662- 5727 Jan, ADHD (attention deficit hyperactivity disorder), combined type F90.2 ; Generalized anxiety disorder F41.1 and Dysthymic disorder F34.1 [facility] [id number] [place] [address] 64271- 0118 Dec, ADHD (attention deficit hyperactivity disorder), combined type F90.2 ; Generalized anxiety disorder F41.1 and Dysthymic disorder F34.1 [facility] [address] [place] [address] 38683- 6956 Dec, [facility] [id number] [place] [address] 25102- 7546 Nov, [facility] [address] [address]- 3456 Nov, [facility] [id number] [place] [address] 74633- 0733 Nov, [facility] [address] [address]- 8932 Nov, [facility] [id number] [place] [address] 72061- 9247 Oct, [facility] [id number] [address]- 3790 Oct, [facility] [id number] [address]- 1489 Oct, [facility] [address] [address]- 2862 Sep, [facility] [address] 0374 Sep, [facility] [address] [place] [address] 59679- 9427 Sep, Agoraphobia with panic disorder F40.01 ; Attention-deficit hyperactivity disorder, combined type F90.2 and Dysthymic disorder F34.1 [facility] [id number] [place] [id number] Aug, [facility] [id number] [address] Aug, [facility] [id number] [place] [address] Aug, [facility] [id number] [address] Aug, Dysthymic disorder F34.1 ; Generalized anxiety disorder F41.1 and ADHD (attention deficit hyperactivity disorder), combined type F90.2 [facility] [id number] [address] Aug, ADHD (attention deficit hyperactivity disorder), combined type F90.2 ; Generalized anxiety disorder F41.1 and Dysthymic disorder F34.1 [facility] [id number] [address] Jul, Urinary tract infection, site not specified N39.0 ; Hypotension, unspecified I95.9 and Breast cancer screening Z12.39 [facility] [id number] [address] Jul, [facility] [id number] [place] [address] Jul, [facility] [id number] [place] [address] 24024- 7481 Jul, Urinary tract infection, site not specified N39.0 ; Nausea R11.0 ; Gastroenteritis K52.9 ; Renal failure N19 and Other hypotension I95.89 [place] [id number] [place] [address] 59441- 2873 Jul, [place] [address] [address]- 6278 Jul, [place] [id number] [place] [address] 25140- 9905 Jul, [place] [address] 38688- 6961 Jun, [place] [id number] [place] [address] 99940- 3103 Jun, Major depression in partial remission 296.25 ; Generalized anxiety disorder 300.02 and ADHD, predominantly inattentive type 314.01 [place] [id number] [place] [address] 31580- 3718 May, [address] [address]- [address] Apr, Major depressive disorder, recurrent episode, severe, without mention of psychotic behavior 296.33 ; Agoraphobia with panic disorder 300.21 and Generalized anxiety disorder 300.02 [place] [id number] [place] [address] 23808- 8387 Apr, ADHD (attention deficit hyperactivity disorder), combined type 314.01 ; Generalized anxiety disorder 300.02 and Dysthymic disorder 300.4 [place] [id number] [place] [address] 10026- 0134 Apr, CAD (coronary artery disease) 414.00 ; HTN (hypertension) 401.9 and Tobacco use 305.1 [place] [id number] [place] [address] 20471- 8287 Apr, [id number] [place] [address] 54794- 3995 Mar, ADHD (attention deficit hyperactivity disorder), combined type 314.01 ; Generalized anxiety disorder 300.02 ; Dysthymic disorder 300.4 ; No condition on [place] V71.09 ; Rheumatoid arthritis 714.0 ; Incontinence 788.30 ; Irritable bowel syndrome 564.1 ; Osteoporosis 733.00 and Chronic pain 338.29 [facility] [id number] [place] [address] 46298- 7177 16 Mar, 2015 Agoraphobia with panic disorder 300.21 and Major depressive disorder, recurrent episode, moderate 296.32 [place] [address] 277397- 0670 Mar, [facility] [id number] [place] [address] 20995- 8354 February, [facility] [id number] [place] [address] 43306- 6648 February, Agoraphobia with panic disorder 300.21 and Major depressive disorder, recurrent episode, moderate 296.32 [facility] [id number] [place] [address] 36388- 9667 February, [facility] [id number] [place] [address] 08338- 7915 Jan, [facility] [id number] [place] [address] 58746- 6425 Jan, [facility] [id number] [place] [address] 83070- 0413 Dec, [facility] [id number] [place] [address] 51403- 9392 Dec, [facility] [id number] [place] [address] 16762- 4481 Dec, [facility] [id number] [place] [address] 62044- 2254 Dec, [facility] [id number] [address] 0198 Dec, [facility] [place] [facility] [address] [id number] [place] [address]- 3911 Dec, [facility] [place] [facility] [address] [id number] [place] [address]- 9608 Nov, 2014 [facility] [place] [facility] [address] [id number] [place] [address]- 3415 Nov, 2014 [facility] [place] [facility] [address] [id number] [place] [address]- 3380 Nov, [facility] [place] [facility] [address] [id number] [place] [address]- 4692 Nov, 2014 [facility] [place] [facility] [address] [id number] [place] [address]- 0287 Nov, [facility] [place] [facility] [address] [id number] [place] [address]- 0443 Nov, [facility] [place] [facility] [address] [id number] [place] [address]- 7154 Nov, [facility] [place] [facility] [address] [facility] [id number] [place] [address]- 4271 Nov, [facility] [place] [facility] [address] [facility] [id number] [place] [address]- 5302 Oct, [facility] [place] [facility] [address] [id number] [place] [address]- 6653 Oct, [facility] [place] [facility] [address] [id number] [place] [address]- 7644 Oct, [facility] [place] [facility] [address] [id number] [place] [address]- 3202 Oct, [facility] [place] [facility] [address] [id number] [place] [address]- 4056 Oct, [facility] [place] [facility] [address] [id number] [place] [address]- 5070 Oct, [facility] [place] [facility] [address] [id number] [place] [address]- 7316 Sep, [facility] [place] [facility] [address] [id number] [place] 8914 Sep, [facility] [place] [facility] [address] [id number] [place] [address]- 9524 Sep, [facility] [place] [facility] [address] [id number] [place] [address]- 6063 Sep, [facility] [place] [facility] [address] [id number] [place] [address]- 6480 Sep, [facility] [place] [facility] [address] [id number] [place] [address]- 4175 Sep, [facility] [place] [facility] [address] [id number] [place] [address]- 9086 Sep, [facility] [place] [facility] [address] [id number] [place] [address]- 5873 Aug, [facility] [place] [facility] [address] [id number] [place] [address]- 5570 Aug, [facility] [place] [facility] [address] [id number] [place] [address]- 1757 Aug, [facility] [place] [facility] [address] [id number] [place] [address]- 9441 Aug, [facility] [place] [facility] [address] [id number] [address]- 2701 Aug, [facility] [place] [facility] [address] [id number] [place] [address]- 4986 Aug, [facility] [place] [facility] [address] [id number] [place] [address]- 0032 Jul, [facility] [place] [facility] [address] [id number] [place] [address]- 1334 Jul, [facility] [place] [facility] [address] [id number] [place] [address]- 8295 Jul, [facility] [place] [facility] [address] [id number] [place] [address]- 4120 Jul, [facility] [place] [facility] [address] [id number] [place] [address]- 2796 Jul, [facility] [place] [facility] [address] [id number] [place] [address]- 7489 Jul, [facility] [place] [facility] [address] [id number] [place] [address]- 8636 Jun, [facility] [place] [facility] [address] [id number] [place] [address]- 3265 Jun, [facility] [place] [facility] [address] [id number] [place] [address]- 8628 May, [facility] [place] [facility] [address] [id number] [place] [address]- 4547 May, [facility] [place] [facility] [address] [id number] [place] [address]- 3500 Apr, [facility] [place] [facility] [address] [id number] [place] [address]- 4803 Apr, [facility] [place] [facility] [address] [id number] [place] [address]- 4161 Apr, [facility] [place] [facility] [address] [id number] [place] [address]- 6177 Apr, [facility] [place] [facility] [address] [id number] [place] [address]- 9047 Mar, [facility] [place] [facility] [address] [id number] [place] [address]- 2964 Mar, [facility] [place] [facility] [address] [id number] [place] [address]- 7006 Mar, [facility] [place] [facility] [address] [id number] [place] 2609 Mar, [facility] [place] [facility] [address] [id number] [place] [address]- 3087 February, [facility] [place] [facility] [address] [id number] [place] [address]- 3657 February, [facility] [place] [facility] [address] [id number] [place] [address]- 3836 February, [facility] [place] [facility] [address] [id number] [place] [address]- 3391 February, [facility] [place] [facility] [address] [id number] [place] [address]- 6617 February, [facility] [place] [facility] [address] [id number] [place] [address]- 1759 February, [facility] [place] [facility] [address] [id number] [place] [address]- 9092 Jan, [facility] [place] [facility] [address] [id number] [place] [address]- 7047 Jan, [facility] [place] [facility] [address] [id number] [place] [address]- 3748 Dec, [facility] [place] [facility] [address] [id number] [place] [address]- 8840 Dec, [facility] [place] [facility] [address] [id number] [place] [address]- 4226 Nov, [facility] [place] [facility] [address] [id number] [place] [address]- 3432 Nov, [facility] [place] [facility] [address] [id number] [place] [address]- 4778 Oct, [facility] [place] [facility] [address] [id number] [place] [address]- 3990 Oct, [facility] [place] [facility] [address] [id number] [place] [address]- 4542 Oct, [facility] [place] [facility] [address] [id number] [place] [address]- 8239 Oct, [facility] [address] [id number] [place] [address]- 8236 Sep, [facility] [place] [facility] [address] [id number] [place] [address]- 5161 Sep, [facility] [address] [id number] [place] [address]- 7077 Sep, [facility] [place] [facility] [address] [id number] [place] [address]- 5493 Sep, [facility] [address] [id number] [place] [address]- 9121 Sep, [facility] [place] [facility] [address] [id number] [place] [address]- 7484 Sep, [facility] [address] [id number] [place] [address]- 1422 Sep, [facility] [place] [facility] [address] [id number] [place] [address]- 9986 Sep, [facility] [place] [facility] [address] [id number] [place] [address]- 5837 Aug, [facility] [place] [facility] [address] [facility] [id number] [place] [address]- 6800 Aug, [facility] [place] [facility] [address] [id number] [place] [address]- 8001 Aug, [facility] [place] [facility] [address] [id number] [place] [address]- 3721 Aug, [facility] [place] [facility] [address] [id number] [place] [address]- 4071 Aug, [facility] [place] [facility] [address] [id number] [place] [address]- 9663 Aug, [facility] [place] [facility] [address] [facility] [id number] [place] [address]- 2533 Aug, [facility] [place] [facility] [address] [id number] [place] [address]- 5709 Aug, [facility] [place] [facility] [address] [id number] [place] [address]- 7409 Aug, [facility] [place] [facility] [address] [id number] [place] [address]- 2546 Jul, [facility] [place] [facility] [address] [id number] [place] [address]- 4819 Jun, [facility] [place] [facility] [address] [id number] [place] [address]- 8226 May, [facility] [place] [facility] [address] [id number] [place] [address]- 3910 May, [facility] [place] [facility] [address] [id number] [place] [address]- 9935 May, [facility] [place] [facility] [address] [id number] [place] [address]- 5146 Apr, [facility] [place] [facility] [address] [id number] [place] [address]- 7725 Mar, [facility] [place] [facility] [address] [id number] [place] [address]- 1188 February, [facility] [place] [facility] [address] [id number] [place] [address]- 6713 Oct, [facility] [place] [facility] [address] [id number] [place] [address]- 7130 Oct, [facility] [place] [facility] [address] [id number] [place] [address]- 2152 Oct, [facility] [place] [facility] [address] [id number] [place] [address]- 4110 Oct, [facility] [place] [facility] [address] [id number] [place] [address]- 3203 Oct, [facility] [place] [facility] [address] [id number] [place] [address]- 9226 Oct, [facility] [place] [facility] [address] [id number] [place] [address]- 4459 Sep, [facility] [place] [facility] [address] [id number] [place] [address]- 4706 Sep, [facility] [place] [facility] [address] [facility] [id number] [place] [address] 2548 Aug, [facility] [place] [facility] [address] [id number] [place] [address]- 3674 Aug, [facility] [place] [facility] [address] [id number] [place] [address]- 4441 Jul, [facility] [place] [facility] [address] [id number] [place] [address]- 8861 Jul, [facility] [place] [facility] [address] [id number] [place] [address]- 7560 Jul, [facility] [place] [facility] [address] [id number] [place] [address]- 4224 Jul, [facility] [place] [facility] [address] [id number] [place] 8839 Jul, [facility] [place] [facility] [address] [id number] [place] [address]- 2060 Jul, [facility] [place] [facility] [address] [id number] [place] [address]- 2116 Jul, [facility] [place] [facility] [address] [id number] [place] [address]- 5307 Jul, [facility] [place] [facility] [address] [id number] [place] [address]- 2051 Jun, [facility] [place] [facility] [address] [facility] [id number] [place] [address]- 7092 Jun, [facility] [place] [facility] [address] [id number] [place] [address] 2546 May, [facility] [place] [facility] [address] [id number] [place] [address]- 8826 Apr, [facility] [address] [id number] [place] [address]- 4737 Mar, [facility] [place] [facility] [address] [id number] [place] [address]- 3866 Mar, [facility] [place] [facility] [address] [id number] [place] [address]- 0953 Mar, [facility] [place] [facility] [address] [id number] [place] [address]- 7851 Mar, [facility] [place] [facility] [address] [id number] [place] [address]- 4725 Jan, [facility] [place] [facility] [address] [id number] [place] [address]- 8428 Nov, [facility] [place] [facility] [address] [id number] [place] [address]- 0085 Nov, [facility] [place] [facility] [address] [id number] [place] [address]- 2582 Nov, [facility] [place] [facility] [address] [id number] [place] [address]- 1162 Oct, [facility] [address] [id number] [place] [address]- 2783 Sep, [facility] [place] [facility] [address] [id number] [place] [address]- 7671 Sep, [facility] [place] [facility] [address] [id number] [place] [address]- 5204 Aug, [facility] [place] [facility] [address] [id number] [place] [address]- 7302 Aug, [facility] [place] [facility] [address] [id number] [place] [address]- 0376 Aug, [facility] [place] [facility] [address] [id number] [place] [address]- 8755 Aug, [facility] [address] [id number] [address]- 2844 Jul, [facility] [id number] [address]- 9506 May, [facility] [id number] [address]- 7871 Jan, [facility] [id number] [address]- 8386 Nov, [facility] [id number] [address]- 2381 Apr, [facility] [id number] [address]- 2956 Dec, [facility] [id number] [address]- 8006 Nov, IMMUNIZATIONS No Known Immunizations SOCIAL HISTORY Never Assessed REASON FOR VISIT Medication question PLAN OF CARE VITAL SIGNS MEDICATIONS Medication Instructions Dosage Frequency Start Date End Date Duration Status Flonase 50 MCG/ACT Nasally Once a day 1 spray in each nostril 24h Mar, 30 days Active RESULTS No Results PROCEDURES No Known procedures INSTRUCTIONS MEDICATIONS ADMINISTERED No Known Medications MEDICAL (GENERAL) HISTORY Type Description Date Medical History Cardiovascular mftazkot-ENM-Orqfacfa, 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 Mendoza Medical History Stress test 03/07/13-Dr. Kelly Dietrich normal Medical History Hypertension Medical History Asthma Medical History Gastrointestinal Disorder--IBS, GERD, Hx of fatty liver Medical History Hernia 1979 Medical History Cervical dysplasia 02/16-Pap LGSIL/[place]-mild dysplasia Medical History Hyperlipidemia Medical History Rheumatoid [...] Kidney injury 07/10/15-07/11/2015 Hospitalization History Symptomatic Hypokalemia/Nause-Via [facility] 05/13/16 Hospitalization History Stroke 05/03/2017 Hospitalization History stroke 08/24/2017--09/01/2017
--- OUTSIDE RECORDS SUMMARY | 2018-06-12 15:50 | XMS REPORT ---
Author Author LORI SNOWDEN Organization [facility] Address [address] [place] [address] Care Team Providers Care Aligner Barrel And Receiver Name Role Phone LORI SNOWDEN Unavailable PROBLEMS Type Condition ICD9-CM Code YUK08-PH Code Onset Dates Condition Status SNOMED Code Problem ADHD (attention deficit hyperactivity disorder), combined type F90.2 Active 81360483 Problem Generalized anxiety disorder F41.1 Active 53562215 Problem Asthma J45.909 Active 361605284 Problem Dysthymic disorder F34.1 Active 94138097 Problem Hypertension I10 Active 04638845 Problem Sleep apnea in adult G47.30 Active 72907092 Problem Chronic pain syndrome G89.4 Active 763068554 Problem Rheumatoid arthritis involving multiple sites, unspecified rheumatoid factor presence M06.9 Active 052886379 Problem Anxiety F41.9 Active 25966971 Problem Gastroesophageal reflux disease with esophagitis K21.0 Active 241896132 Problem Primary insomnia F51.01 Active 7458648 Problem Chronic obstructive pulmonary disease, unspecified COPD type J44.9 Active 84387935 Problem Arteriosclerotic coronary artery disease I25.10 Active 06761133 Problem Weight gain R63.5 Active 8578541 Problem Rheumatoid arthritis M06.9 Active 35071569 Problem Panic attacks F41.0 Active 477731376 Problem Irritable bowel syndrome with diarrhea K58.0 Active 752087462 Problem Seasonal allergies J30.2 Active 510483113 Problem Mild episode of recurrent major depressive disorder F33.0 Active 707555472 Problem Neuropathy G62.9 Active 824827211 Problem Other insomnia G47.09 Active 162367485 Problem Mixed hyperlipidemia E78.2 Active 625340486 Problem Hyperinsulinemia E16.1 Active 20329612 Problem Other residential (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 Active 014655402 Problem Cerebrovascular accident (CVA), unspecified mechanism I63.9 Active 791464126 Problem Chronic obstructive pulmonary disease, unspecified J44.9 Active [id number] Problem Obstructive sleep apnea G47.33 Active 91132466 ALLERGIES Substance Reaction Event Type Date Status Breo Ellipta Nausea, dizziness Drug Allergy February, Active Solu-Medrol rash, swelling Drug Allergy February, Active Paxil Unknown Drug Allergy February, Active Hydrocodone-Acetaminophen hives Drug Allergy February, Active Doxycycline Hyclate local swellling Drug Allergy February, Active Codeine Sulfate hives Drug Allergy February, Active Oxybutynin 5 Ea Tablet mouth sores Non Drug Allergy February, Active Iodinated Contrast Media - Iv Dye unknown Non Drug Allergy February, Active ENCOUNTERS Encounter Location Date Diagnosis [place] [address] 90873- 0446 Jul, [place] [address] 78463- 4588 Jun, [place] [address] 27015- 9149 May, [place] [address] 85372- 4132 May, Chronic obstructive pulmonary disease, unspecified COPD type J44.9 ; Primary insomnia F51.01 ; Fatigue, unspecified type R53.83 and Weight gain R63.5 [place] [address] [place] [id number] [place] [address] 71027- 5271 May, Thrush B37.0 [place] [address] [place] [id number] [place] [address] 33376- 0606 May, Mild episode of recurrent major depressive disorder F33.0 and Generalized anxiety disorder F41.1 [place] [address] [place] [id number] [place] [address] 49921- 7444 May, Thrush B37.0 [place] [address] [place] [id number] [place] [address] 54924- 3115 Apr, Cough R05 [place] [address] 89822- 1540 Mar, Mild episode of recurrent major depressive disorder F33.0 [facility] [address] [place] [id number] [place] [address] 50081- 0784 Mar, Mild episode of recurrent major depressive disorder F33.0 and Generalized anxiety disorder F41.1 [facility] [address] [place] [id number] [place] [address] 22819- 4811 Mar, Seasonal allergies J30.2 [facility] [address] 76148- 8400 Mar, Seasonal allergies J30.2 [facility] [address] 70225- 6401 February, Generalized anxiety disorder F41.1 [facility] [address] [place] [id number] [place] [address] 47129 -6552 February, Cough R05 and Seasonal allergies J30.2 [facility] [address] 51117- 2858 February, Generalized anxiety disorder F41.1 and Mild episode of recurrent major depressive disorder F33.0 [facility] [address] 77392- 4583 February, Other terminal system operator (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 ; Anxiety F41.9 ; Panic attacks F41.0 and Irritable bowel syndrome with diarrhea K58.0 [facility] [address] [place] [id number] [place] [address] 59452- 7359 February, [facility] [address] [place] [id number] [place] [address] 06351- 1880 Jan, Mixed hyperlipidemia E78.2 [facility] [address] [place] [id number] [place] [address] 64653- 2590 Jan, [facility] [address] [place] [id number] [place] [address] 49550- 2616 Jan, [facility] [address] 92087- 3080 Jan, [facility] [address] [address]- 0078 Jan, [facility] [address] [place] [address] 17636- 0766 Dec, [facility] [address] [place] [id number] [place] [address] 97921- 8654 Dec, [facility] [address] [place] [id number] [place] [address] 48460- 9918 Dec, [facility] [address] [place] [address] 95611- 4823 Nov, Dysthymic disorder F34.1 [facility] [address] [place] [id number] [place] [address] 552908- 3888 Oct, [facility] [address] [place] [id number] [place] [address] 856748- 6455 Oct, [facility] [address] [place] [address] 67869- 7387 Oct, [facility] [address] [place] [id number] [place] [address] 07670- 6825 Oct, Diarrhea, unspecified type R19.7 and Dysuria R30.0 [facility] [address] [address]- 5563 Oct, [facility] [address] [place] [address] 936822- 8120 Sep, [facility] [address] 2965 Sep, [facility] [address] [place] [id number] [place] [address] 913641- 9628 Sep, Anxiety F41.9 [facility] [address] 450[address] Sep, Cerebrovascular accident (CVA), unspecified mechanism I63.9 ; Mixed hyperlipidemia E78.2 ; Gastroesophageal reflux disease with esophagitis K21.0 and Anxiety F41.9 [place] [address] [place] [id number] [place] [address] 71323- 1268 Sep, [place] [address] [place] [id number] [place] [address] 63242- 3277 Aug, Chronic obstructive pulmonary disease, unspecified J44.9 ; Asthma J45.909 ; Nausea R11.0 ; Dysthymic disorder F34.1 ; Cerebrovascular accident (CVA), unspecified mechanism I63.9 and Rheumatoid arthritis M06.9 [place] [address] 94728- 4004 Aug, Nausea R11.0 ; Encounter for immunization Z23 ; Sleep apnea in adult G47.30 ; Rheumatoid arthritis involving multiple sites, unspecified rheumatoid factor presence M06.9 ; Generalized anxiety disorder F41.1 ; Dysthymic disorder F34.1 and Asthma J45.909 [place] [address] [place] [id number] [place] [address] 61433- 9797 Jul, [place] [address] 03466- 7391 May, ADHD (attention deficit hyperactivity disorder), combined type F90.2 ; Generalized anxiety disorder F41.1 and Persistent depressive disorder F34.1 [place] [address] [place] [id number] [place] [address] 94238- 0748 May, Cerebrovascular accident (CVA), unspecified mechanism I63.9 [place] [address] [place] [id number] [place] [address] 59646- 2503 Apr, Mixed hyperlipidemia E78.2 and Cerebrovascular accident (CVA ), unspecified mechanism I63.9 [place] [address] [place] [id number] [place] [address] 99081- 4423 Apr, Generalized anxiety disorder F41.1 [place] [address] [place] [id number] [place] [address] 02638- 4052 Apr, Bronchitis J40 and Tobacco use Z72.0 [facility] [address] [place] [id number] [place] [address] 88294- 2992 Apr, Mixed hyperlipidemia E78.2 [facility] [address] [place] [id number] [place] [address] 31302- 3778 Apr, Other terminal system operator (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 [facility] [address] 18214- 3919 Apr, [facility] [address] 14429- 8018 Apr, Generalized anxiety disorder F41.1 [place] [address] 90062- 0251 Apr, Obstructive sleep apnea G47.33 and Hyperinsulinemia E16.1 [place] [address] 15274- 8019 Apr, ADHD (attention deficit hyperactivity disorder), combined type F90.2 ; Generalized anxiety disorder F41.1 and Persistent depressive disorder F34.1 [place] [address] [place] [id number] [address] 60962- 7715 Mar, [place] [address] [place] [id number] [place] [address] 82057- 3016 Mar, Generalized anxiety disorder F41.1 [place] [address] 32772- 3663 Mar, Tarsal tunnel syndrome of both lower extremities G57.53 [facility] [address] [place] [id number] [place] [address] 03192- 2184 February, [place] [address] 47345- 5819 February, [facility] [address] [place] [id number] [place] [address] 41628- 2877 February, Asthma J45.909 [facility] [address] [place] [id number] [place] [address] 87935- 6080 February, Generalized anxiety disorder F41.1 [place] [address] 60226- 6623 February, Hypoxemia R09.02 ; Hyperglycemia R73.9 ; Rheumatoid arthritis M06.9 and Generalized anxiety disorder F41.1 [place] [address] 20714- 8464 February, [place] [address] 77850- 4062 Jan, Chronic obstructive pulmonary disease, unspecified J44.9 [place] [address] 93568- 4533 Jan, Chronic pain syndrome G89.4 [place] [address] 48375- 0522 Jan, Hypoxemia R09.02 [place] [address] 74473- 8825 Jan, [place] [address] 51870- 0035 Jan, Chronic obstructive pulmonary disease, unspecified J44.9 ; Hypoxemia R09.02 ; Other insomnia G47.09 and Left anterior shoulder pain M25.512 [place] [address] [place] [id number] [place] [address] 70599- 6906 Jan, Numbness in feet R20.0 and Neuropathy G62.9 [place] [address] [place] [id number] [place] [address] 87224- 0125 Jan, [place] [address] 94713- 9739 Dec, Acute pain of left shoulder M25.512 [place] [address] [place] [id number] [place] [address] 07911- 7369 Dec, Acute pain of left shoulder M25.512 [place] [address] [address]- 3896 Dec, Generalized anxiety disorder F41.1 [facility] [address] [address] 93912 2546 03 Dec, 2016 Generalized anxiety disorder F41.1 [facility] [address] [address]- 1676 Nov, ADHD (attention deficit hyperactivity disorder), combined type F90.2 ; Generalized anxiety disorder F41.1 and Persistent depressive disorder F34.1 [facility] [address] [address]- 0263 Nov, Acute pain of left shoulder M25.512 [facility] [address] [place] [address] 89634- 1686 20 Nov, 2016 ADHD (attention deficit hyperactivity disorder), combined type F90.2 ; Generalized anxiety disorder F41.1 and Persistent depressive disorder F34.1 [facility] [address] [place] [address] 73614- 9228 17 Nov, 2016 Chronic pain syndrome G89.4 [facility] [address] [place] [id number] [place] [address] 66092 2546 13 Nov, 2016 Chronic pain syndrome G89.4 [facility] [address] [address]- 2546 08 Nov, 2016 Acute pain of left shoulder M25.512 [facility] [address] [address]- 4419 07 Nov, 2016 Generalized anxiety disorder F41.1 [facility] [address] [address] 72612 2543 06 Nov, 2016 Acute pain of left shoulder M25.512 [facility] [address] [address]- 7792 06 Nov, 2016 ADHD (attention deficit hyperactivity disorder), combined type F90.2 ; Generalized anxiety disorder F41.1 and Persistent depressive disorder F34.1 [place] [address] 72052- 6022 Nov, Acute pain of left shoulder M25.512 ; Generalized anxiety disorder F41.1 ; Chronic pain syndrome G89.4 ; Hyperinsulinemia E16.1 ; Pain of left foot M79.672 and Pain in right foot M79.671 [place] [address] 21783- 3768 Oct, ADHD (attention deficit hyperactivity disorder), combined type F90.2 ; Generalized anxiety disorder F41.1 and Dysthymic disorder F34.[address] 59943- 8199 Sep, [address] 70918- 1324 Sep, [address] 20689- 0934 Sep, Routine gynecological examination V72.31 ; Cervical cancer screening Z12.4 ; Breast cancer screening Z12.39 ; Colon cancer screening Z12.11 ; Hypokalemia E87.6 ; Herpes simplex type 1 infection B00.9 and Abscess of right axilla L02.[address] 19711- 7924 Sep, [address] 60462- 3587 Sep, ADHD (attention deficit hyperactivity disorder), combined type F90.2 ; Generalized anxiety disorder F41.1 and Dysthymic disorder F34.[address] 88271- 9870 Aug, [place] [address] 53527- 7512 Aug, [address] 10361- 7892 Aug, Generalized anxiety disorder F41.1 [facility] [address] [place] [id number] [place] [address] 12221- 7245 Aug, ADHD (attention deficit hyperactivity disorder), combined type F90.2 ; Generalized anxiety disorder F41.1 and Dysthymic disorder F34.1 [place] [address] [place] [id number] [address] 69680- 0201 Jul, Chronic pain syndrome G89.4 ; Hypertension I10 ; Hypokalemia E87.6 ; Asthma J45.909 and Nausea R11.0 [place] [address] [place] [id number] [address] 30393- 2812 Jul, [place] [address] 34741- 2573 Jul, Asthma J45.909 [place] [address] 61213- 6080 Jul, ADHD (attention deficit hyperactivity disorder), combined type F90.2 ; Generalized anxiety disorder F41.1 and Dysthymic disorder F34.1 [place] [address] 49290- 6341 Jul, [place] [address] [place] [id number] [address] 77999- 9512 Jul, Hypertension I10 ; Arteriosclerotic coronary artery disease I25.10 ; Mixed hyperlipidemia E78.2 ; Other residential (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 and Hyperglycemia R73.9 [place] [address] [place] [id number] [address] 84473- 2358 16 Jun, 2016 Hypokalemia E87.6 and Hyperglycemia R73.9 [place] [address] 44572- 0541 14 Jun, 2016 [place] [address] 97199- 3704 13 Jun, 2016 Abnormal kidney function N28.9 [place] [address] 18877- 3107 Jun, [place] [address] 03044- 9195 Jun, ADHD (attention deficit hyperactivity disorder), combined type F90.2 ; Generalized anxiety disorder F41.1 and Dysthymic disorder F34.1 [place] [address] 19746- 8740 Jun, Generalized anxiety disorder F41.1 and Dysthymic disorder F34.1 [place] [address] 78469- 0307 Jun, Hypokalemia E87.6 [place] [address] 26776- 6519 May, Hypokalemia E87.6 ; Vertigo R42 and Hyperinsulinemia E16.1 [place] [address] 40161- 3928 May, [place] [address] 32580- 3879 May, Abnormal kidney function N28.9 ; Hyperinsulinemia E16.1 and Nausea R11.0 [place] [address] 83244- 6267 May, Hypokalemia E87.6 ; Nausea R11.0 ; Epigastric pain R10.13 ; Dehydration E86.0 ; Diaphoresis R61 and Right arm pain M79.601 [place] [address] 13262- 4134 May, [place] [address] 36783- 4955 May, Hypokalemia E87.6 [place] [address] 77623- 4661 May, Hypokalemia E87.6 [place] [address] [address] 86599- 7571 Apr, [place] [address] [place] [id number] [place] [address] 56821- 3586 Apr, ADHD (attention deficit hyperactivity disorder), combined type F90.2 ; Generalized anxiety disorder F41.1 and Dysthymic disorder F34.1 [place] [address] [place] [id number] [address] 24257- 4301 Apr, Right arm pain M79.601 and Hyperinsulinemia E16.1 [place] [address] [place] [id number] [address] 40252- 5151 Mar, [place] [address] [place] [id number] [place] [address] 65085- 3212 Mar, [place] [address] [place] [id number] [address] 88147- 4303 Mar, Hyperinsulinemia E16.1 ; Hyperlipidemia, unspecified hyperlipidemia type E78.5 ; Central venous catheter in place Z78.9 ; Generalized anxiety disorder F41.1 and Urinary tract infection, site not specified N39.0 [place] [address] [place] [id number] [place] [address] 64996- 4927 Mar, ADHD (attention deficit hyperactivity disorder), combined type F90.2 ; Generalized anxiety disorder F41.1 and Dysthymic disorder F34.1 [place] [address] [place] [id number] [address] 96092- 3903 February, ADHD (attention deficit hyperactivity disorder), combined type F90.2 ; Generalized anxiety disorder F41.1 and Dysthymic disorder F34.1 [place] [address] [place] [id number] [address] 11549- 9957 February, [place] [address] [place] [id number] [place] [address] 53551- 0865 February, [place] [address] [place] [id number] [place] [address] 58657- 4934 February, Hypertension I10 and Weight gain R63.5 [facility] [address] [place] [address] 80662- 9497 February, Major depressive disorder, recurrent, moderate F33.1 and Generalized anxiety disorder F41.1 [place] [address] [address] 72213- 5887 February, ADHD (attention deficit hyperactivity disorder), combined type F90.2 ; Generalized anxiety disorder F41.1 and Dysthymic disorder F34.1 [place] [address] [place] [id number] [address] 23805- 1135 February, [place] [address] [place] [id number] [address] 62845- 6475 February, Asthma J45.909 ; Weight gain R63.5 ; Hypertension I10 ; Rheumatoid arthritis M06.9 and Chronic pain syndrome G89.4 [place] [address] [place] [id number] [address] 54182- 7455 Jan, ADHD (attention deficit hyperactivity disorder), combined type F90.2 ; Generalized anxiety disorder F41.1 and Dysthymic disorder F34.1 [place] [address] [place] [id number] [address] 80921- 1939 Dec, ADHD (attention deficit hyperactivity disorder), combined type F90.2 ; Generalized anxiety disorder F41.1 and Dysthymic disorder F34.1 [place] [address] [place] [address] 60727- 7839 Dec, [place] [address] [address] 74385- 6767 Nov, [place] [address] [place] [id number] [place] [address] 94521- 0223 Nov, [place] [address] [place] [id number] [place] [address] 53850- 7337 Nov, [place] [address] [place] [id number] [place] [address] 90876- 2958 Nov, [facility] [address] [address]- 3033 Oct, [facility] [address], [place] [address]- 4607 Oct, [facility] [address], [place] [address]- 2460 Oct, [facility] [address] [place] [id number] [place] [address] 24052- 0699 Sep, [facility] [address] [address]- 7174 Sep, [facility] [address] [id number] [place] [address] 31465- 1273 Sep, Agoraphobia with panic disorder F40.01 ; Attention-deficit hyperactivity disorder, combined type F90.2 and Dysthymic disorder F34.1 [facility] [address], [place] [address]- 8319 Aug, [facility] [address] [address]- 1254 Aug, [facility] [address] [address]- 1402 Aug, [facility] [address] [address]- 7685 Aug, Dysthymic disorder F34.1 ; Generalized anxiety disorder F41.1 and ADHD (attention deficit hyperactivity disorder), combined type F90.2 [facility] [address] [id number] [address]- 6933 Aug, ADHD (attention deficit hyperactivity disorder), combined type F90.2 ; Generalized anxiety disorder F41.1 and Dysthymic disorder F34.1 [facility] [address] [address]- 9377 Jul, Urinary tract infection, site not specified N39.0 ; Hypotension, unspecified I95.9 and Breast cancer screening Z12.39 [facility] [address] [address]- 5025 Jul, [facility] [address] [address] [id number] [place] [address] 79835- 2524 Jul, [facility] [address] [id number] [place] [address] 56328- 1922 Jul, Urinary tract infection, site not specified N39.0 ; Nausea R11.0 ; Gastroenteritis K52.9 ; Renal failure N19 and Other hypotension I95.89 [facility] [address] [id number] [place] [address] 29536- 8377 Jul, [facility] [address] [place] [address] [id number] [place] [address] [id number] Jul, [facility] [id number] [place] [address] [id number] Jul, [facility] [id number] [place] [address] [id number]- [id number] Jun, [facility] [id number] [place] [address] [phone] Jun, Major depression in partial remission 296.25 ; Generalized anxiety disorder 300.02 and ADHD, predominantly inattentive type 314.01 [place] [address] [id number] [address] [phone] May, [facility] [address] [id number] [place] [address] 30791- 0270 Apr, Major depressive disorder, recurrent episode, severe, without mention of psychotic behavior 296.33 ; Agoraphobia with panic disorder 300.21 and Generalized anxiety disorder 300.02 [facility] [id number] [place] [address] 03870- 7098 Apr, ADHD (attention deficit hyperactivity disorder), combined type 314.01 ; Generalized anxiety disorder 300.02 and Dysthymic disorder 300.4 [facility] [id number] [place] [address] 74361- 1062 Apr, CAD (coronary artery disease) 414.00 ; HTN (hypertension) 401.9 and Tobacco use 305.1 [facility] [id number] [place] [address] 85089- 6358 Apr, [facility] [id number] [place] [address] 13496- 5499 Mar, ADHD (attention deficit hyperactivity disorder), combined type 314.01 ; Generalized anxiety disorder 300.02 ; Dysthymic disorder 300.4 ; No condition on [place] II V71.09 ; Rheumatoid arthritis 714.0 ; Incontinence 788.30 ; Irritable bowel syndrome 564.1 ; Osteoporosis 733.00 and Chronic pain 338.29 [facility] [id number] [place] [address] 65879- 0648 Mar, Agoraphobia with panic disorder 300.21 and Major depressive disorder, recurrent episode, moderate 296.32 [facility] [id number] [place] [address] 89895- 1777 Mar, [facility] [id number] [place] [address] 23405- 9945 February, [facility] [id number] [place] [address] 27778- 6830 February, Agoraphobia with panic disorder 300.21 and Major depressive disorder, recurrent episode, moderate 296.32 [facility] [id number] [place] [address] 74797- 1604 February, [facility] [id number] [place] [address] 23536- 4751 Jan, [facility] [address] [address]- 3241 Jan, [facility] [id number] [place] [address] 51949- 6619 Dec, [facility] [address] [address]26- 5612 Dec, [facility] [place] [facility] [address] [id number] [place] [address]- 4491 Dec, [facility] [place] [facility] [address] [id number] [place] [address]- 9652 Dec, [facility] [place] [facility] [address] [id number] [place] [address]- 3561 Dec, [facility] [place] [facility] [address] [id number] [place] [address]- 5528 Dec, [facility] [place] [facility] [address] [id number] [place] [address]- 0867 Nov, [facility] [place] [facility] [address] [id number] [place] [address]- 4769 Nov, [facility] [place] [facility] [address] [id number] [place] [address]- 5641 Nov, 2014 [facility] [place] [facility] [address] [id number] [place] [address]- 0476 Nov, [facility] [place] [facility] [address] [id number] [place] [address]- 8385 Nov, [facility] [place] [facility] [address] [id number] [place] [address]- 2870 Nov, [facility] [place] [facility] [address] [id number] [place] [address]- 8304 Nov, [facility] [place] [facility] [address] [id number] [place] [address]- 2455 Nov, [facility] [place] [facility] [address] [id number] [place] [address]- 6946 Oct, [facility] [place] [facility] [address] [id number] [place] [address]- 7471 Oct, [facility] [place] [facility] [address] [id number] [address]- 8183 Oct, [facility] [place] [facility] [address] [id number] [place] [address]- 5623 Oct, [facility] [place] [facility] [address] [id number] [place] [address]- 6522 Oct, [facility] [place] [facility] [address] [id number] [place] [address]- 8721 Oct, [facility] [place] [facility] [address] [id number] [place] [address]- 5509 Sep, [facility] [place] [facility] [address] [id number] [place] [address]- 4062 Sep, [facility] [place] [facility] [address] [id number] [place] [address]- 6033 Sep, [facility] [place] [facility] [address] [id number] [place] [address]- 1582 Sep, [facility] [place] [facility] [address] [id number] [place] [address]- 9888 Sep, [facility] [place] [facility] [address] [id number] [place] [address]- 2332 Sep, [facility] [place] [facility] [address] [id number] [place] [address]- 6636 Sep, [facility] [place] [facility] [address] [id number] [place] [address]- 3054 Aug, [facility] [place] [facility] [address] [id number] [place] [address]- 5453 Aug, [facility] [place] [facility] [address] [id number] [place] [address]- 1051 Aug, [facility] [place] [facility] [address] [id number] [place] [address]- 1592 Aug, [facility] [place] [facility] [address] [id number] [place] [address]- 7085 Aug, [facility] [place] [facility] [address] [id number] [place] [address]- 7567 Aug, [facility] [place] [facility] [address] [id number] [place] [address]- 8577 Jul, [facility] [place] [facility] [address] [id number] [place] [address]- 9605 Jul, [facility] [place] [facility] [address] [id number] [place] [address]- 6094 Jul, [facility] [place] [facility] [address] [id number] [place] [address]- 8035 Jul, [facility] [place] [facility] [address] [id number] [place] [address]- 1355 Jul, [facility] [place] [facility] [address] [id number] [place] [address]- 1467 Jul, [facility] [place] [facility] [address] [id number] [place] [address]- 8715 Jun, [facility] [place] [facility] [address] [id number] [place] [address]- 2684 Jun, [facility] [place] [facility] [address] [id number] [place] [address]- 5487 May, [facility] [place] [facility] [address] [id number] [place] [address]- 3077 May, [facility] [place] [facility] [address] [id number] [place] [address]- 3000 Apr, [facility] [place] [facility] [address] [id number] [place] [address]- 4513 Apr, [facility] [place] [facility] [address] [id number] [place] [address]- 0450 Apr, [facility] [place] [facility] [address] [id number] [place] [address]- 8610 Apr, [facility] [place] [facility] [address] [id number] [place] [address]- 3280 Mar, [facility] [place] [facility] [address] [id number] [place] [address]- 9834 Mar, [facility] [address] [id number] [place] [address]- 8455 Mar, [facility] [place] [facility] [address] [id number] [place] [address]- 0470 Mar, [facility] [place] [facility] [address] [id number] [place] [address]- 6029 February, [facility] [place] [facility] [address] [id number] [place] [address]- 1751 February, [facility] [place] [facility] [address] [id number] [place] [address]- 7921 February, [facility] [place] [facility] [address] [id number] [place] [address]- 5096 February, [facility] [place] [facility] [address] [id number] [place] [address]- 9544 February, [facility] [address] [id number] [place] [address]- 6202 February, [facility] [place] [facility] [address] [id number] [place] [address]- 4823 Jan, [facility] [place] [facility] [address] [id number] [place] [address]- 8333 Jan, [facility] [place] [facility] [address] [id number] [place] [address]- 8584 Dec, [facility] [place] [facility] [address] [id number] [place] [address]- 7291 Dec, [facility] [place] [facility] [address] [id number] [place] [address]- 2452 Nov, [facility] [place] [facility] [address] [id number] [place] [address]- 9536 Nov, [facility] [place] [facility] [address] [id number] [place] [address]- 4196 Oct, [facility] [place] [facility] [address] [id number] [place] [address]- 1673 Oct, [facility] [place] [facility] [address] [id number] [place] [address]- 0488 Oct, [facility] [place] [facility] [address] [id number] [place] [address]- 7515 Oct, [facility] [place] [facility] [address] [id number] [place] [address]- 0226 Sep, [facility] [place] [facility] [address] [id number] [place] [address]- 8463 Sep, [facility] [place] [facility] [address] [id number] [place] [address]- 2936 Sep, [facility] [place] [facility] [address] [id number] [place] [address]- 5659 Sep, [facility] [place] [facility] [address] [id number] [place] [address]- 2391 Sep, [facility] [place] [facility] [address] [id number] [place] [address]- 5623 Sep, [facility] [place] [facility] [address] [id number] [place] [address]- 1383 Sep, [facility] [place] [facility] [address] [id number] [address]- 0915 Sep, [facility] [place] [facility] [address] [id number] [address]- 0275 Aug, [facility] [place] [facility] [address] [id number] [place] [address]- 8951 Aug, [facility] [place] [facility] [address] [id number], [place] [address]- 7632 Aug, [facility] [place] [facility] [address] [id number] [address]- 9040 Aug, [facility] [place] [facility] [address] [id number] [place] [address] 2548 Aug, [facility] [address] [id number] [place] [address]- 2699 Aug, [facility] [place] [facility] [address] [id number] [place] [address]- 0812 Aug, [facility] [place] [facility] [address] [id number] [place] [address]- 1365 Aug, [facility] [place] [facility] [address] [id number] [place] [address]- 1723 Aug, [facility] [place] [facility] [address] [id number] [place] [address]- 8596 Jul, [facility] [place] [facility] [address] [id number] [place] [address]- 2102 Jun, [facility] [place] [facility] [address] [id number] [place] [address]- 1223 May, [facility] [place] [facility] [address] [id number] [place] [address]- 5612 May, [facility] [place] [facility] [address] [id number] [place] [address]- 3567 May, [facility] [place] [facility] [address] [id number] [place] [address]- 3940 Apr, [facility] [place] [facility] [address] [id number] [place] [address]- 2885 Mar, [facility] [place] [facility] [address] [id number] [place] [address] 2540 February, [facility] [place] [facility] [address] [id number] [place] [address]- 1094 Oct, [facility] [place] [facility] [address] [id number] [place] [address]- 2546 Oct, [facility] [place] [facility] [address] [id number] [place] [address]- 6827 Oct, [facility] [place] [facility] [address] [id number] [place] [address]- 7010 Oct, [facility] [place] [facility] [address] [id number] [place] [address]- 8266 Oct, [facility] [place] [facility] [address] [id number] [place] [address]- 3492 Oct, [facility] [place] [facility] [address] [id number] [place] [address]- 2910 Sep, [facility] [place] [facility] [address] [id number] [place] [address]- 2043 Sep, [facility] [place] [facility] [address] [id number] [place] [address]- 5521 Aug, [facility] [place] [facility] [address] [id number] [place] [address]- 0506 Aug, [facility] [place] [facility] [address] [id number] [place] [address]- 8097 Jul, [facility] [place] [facility] [address] [id number] [place] [address]- 8728 Jul, [facility] [place] [facility] [address] [id number] [place] [address]- 1707 Jul, [facility] [place] [facility] [address] [id number] [place] [address]- 7927 Jul, [facility] [place] [facility] [address] [id number] [place] [address]- 8801 Jul, [facility] [place] [facility] [address] [id number] [place] [address]- 6479 Jul, [facility] [place] [facility] [address] [id number] [place] [address]- 7164 Jul, [facility] [place] [facility] [address] [id number] [place] [address]- 1074 Jul, [facility] [place] [facility] [address] [id number] [place] [address]- 5096 16 Jun, 2012 [facility] [place] [facility] [address] [id number] [place] [address]- 4765 Jun, [facility] [place] [facility] [address] [id number] [place] [address]- 1544 May, [facility] [place] [facility] [address] [id number] [place] [address]- 3510 Apr, [facility] [place] [facility] [address] [id number] [place] [address]- 7887 Mar, [facility] [place] [facility] [address] [id number] [place] [address]- 1904 Mar, [facility] [place] [facility] [address] [id number] [place] [address]- 6612 Mar, [facility] [place] [facility] [address] [id number] [place] [address]- 3220 Mar, [facility] [place] [facility] [address] [id number] [place] [address]- 7117 Jan, [facility] [place] [facility] [address] [id number] [place] [address]- 5258 Nov, [facility] [place] [facility] [address] [id number] [place] [address]- 9049 Nov, [facility] [place] [facility] [address] [id number] [place] [address]- 5388 Nov, [facility] [place] [facility] [address] [id number] [place] [address]- 7624 Oct, [facility] [place] [facility] [address] [id number] [place] [address]- 2996 Sep, [facility] [place] [facility] [address] [id number] [place] [address]- 9191 Sep, [facility] [place] [facility] [address] [id number] [place] [address]- 1196 Aug, [facility] [place] [facility] [address] [id number] [address] 2546 Aug, [facility] [address] [address]- 9966 Aug, [facility] [address] [address]- 2546 Aug, [facility] [id number] [place] [address] 31529 2546 Jul, [facility] [address] [id number] [address]- 2546 May, [facility] [id number] [place] [address] 14137- 5376 Jan, [facility] [id number] [place] [address] 83476- 8426 Nov, [facility] [id number] [place] [address] 82229- 1996 Apr, [facility] [id number] [place] [address] 46341- 2795 Dec, [facility] [id number] [place] [address] 05333- 7366 Nov, IMMUNIZATIONS No Known Immunizations SOCIAL HISTORY Never Assessed REASON FOR VISIT ER follow up-diarrhea/sleep disorder/lack of focus without ADD meds DANILO-IKER, CCM note: Pt has not picked up the simvastatin yet from [facility]. Pt thinks she had issue with this med in the past. RN contacted [facility] and they have no past script for simvastatin. Pt should try med for a month and advise of any side effects. PA can then be done for Crestor if unable to tolerate. Cannot use CPAP currenlty as she may have accientally thrown away the head gear. Owes [employer] money. Food insecure (has been enc to go tto [employer] [facility] [employer]). See care plan for further._ _roldan rae PLAN OF CARE Activity Details Follow Up 3 Months Reason:DM Needs A1c Pending Test PDM - 09 PANEL (PROFILE 1) VITAL SIGNS Height 67 in 2018-02-09 Weight 201 lbs 2018-02-09 Temperature 99 degrees Fahrenheit 2018-02-09 Heart Rate 80 bpm 2018-02-09 Respiratory Rate 20 2018-02-09 BMI 31.48 kg/m2 2018-02-09 Blood pressure systolic 116 mmHg 2018-02-09 Blood pressure diastolic 74 mmHg 2018-02-09 MEDICATIONS Medication Instructions Dosage Frequency Start Date End Date Duration Status Dicyclomine HCl 20 mg Orally 2 times a day and 1 additional daily prn 1 tablet February, Active Simvastatin 40 mg Orally Once a day 1 tablet in the evening 24h 24 Jan, 2018 30 day(s) Not-Taking Questran 4 GM/DOSE Orally Twice a day 1 scoop 12h Oct, 30 day(s ) Active Zofran 4 MG Orally 3 times a day 1 tablet 8h May, 7 Active Clopidogrel Bisulfate 75 MG Orally Once a day 1 tablet 24h 30 days Active Advair Diskus 100-50 MCG/DOSE Inhalation Twice a day 1 puff 12h Jul, Active Xeljanz 5 mg 1 Tablet by Oral route 2 times per day Dec, Active Cyclobenzaprine HCl 10 MG Orally 2 times a day 1 tablet as needed 12h Jul, 30 Active Xanax 0.5 MG Orally Twice a day 1 tablet as needed 12h Sep, 28 days Active Vitamin D3 2000 UNIT Orally Once a day 1 capsule 24h Not-Taking Pantoprazole Sodium 40 mg Orally Once a day 1 tablet 24h Sep, 90 days Active Ventolin HFA 108 (90 Base) MCG/ACT Inhalation every 6 hrs 2 puffs as needed 6h Aug, Active Gabapentin 600 MG Orally Three times a day 1 capsule 8h 07 Nov, 2016 30 Active Venlafaxine HCl ER 150 MG Orally Once a day 2 tablet 24h Nov, 30 days Active Metoprolol Tartrate 25 MG Orally Twice a day 1 tablet with food 12h Active Tramadol HCl 50 mg Orally 4 times a day PRN PAIN 1-2 tablets Active Albuterol Sulfate (2.5 MG/3ML) 0.083% Inhalation every 4 hours 3 ml as needed for cough or wheeze 4h 13 Jul, 2014 Active RESULTS No Results PROCEDURES Procedure Date Ordered Result Body Site LAB NOT BILLED BY [facility] February 09, 2018 [facility] VISIT ESTABLISHED PATIENT February 09, 2018 INSTRUCTIONS MEDICATIONS ADMINISTERED No Known Medications MEDICAL (GENERAL) HISTORY Type Description Date Medical History Cardiovascular iulgvzeg-FFI-Jeynbmvw, non-obstructive per [facility] ( 01/2011) Dr. Mendoza Medical History Stress test 03/07/13-Dr. Kelly Dietrich normal Medical History Hypertension Medical History Asthma Medical History Gastrointestinal Disorder--IBS, GERD, Hx of fatty liver Medical History Hernia 1979 Medical History Cervical dysplasia 02/16-Pap LGSIL/[place]-mild dysplasia Medical History Hyperlipidemia Medical History Rheumatoid [...] at [place] 05/13/16 Hospitalization History Stroke 05/03/2017 Hospitalization History stroke 08/24/2017--09/01/2017
[2018-06-12] MEDS ORDERED: RT-ALBUTEROL SULF 2.5 MG/3 ML PRE-MIX VIAL ONE (15:51)
--- OUTSIDE RECORDS SUMMARY | 2018-06-12 15:51 | XMS REPORT ---
Author Author NAPOLEON KIDD [facility] Address [address] [place] [address] Care Team Providers Care Plugman Name Role Phone ESCAMILLA NAPOLEON MURO Unavailable PROBLEMS Type Condition ICD9-CM Code [id number] Code Onset Dates Condition Status SNOMED Code Problem ADHD (attention deficit hyperactivity disorder), combined type F90.2 Active 48940467 Problem Generalized anxiety disorder F41.1 Active 44018730 Problem Asthma J45.909 Active 709993698 Problem Dysthymic disorder F34.1 Active 42028296 Problem Hypertension I10 Active 14058429 Problem Sleep apnea in adult G47.30 Active 09287567 Problem Chronic pain syndrome G89.4 Active 986209238 Problem Rheumatoid arthritis involving multiple sites, unspecified rheumatoid factor presence M06.9 Active 780303428 Problem Anxiety F41.9 Active 58162534 Problem Gastroesophageal reflux disease with esophagitis K21.0 Active 823120013 Problem Primary insomnia F51.01 Active 3452484 Problem Chronic obstructive pulmonary disease, unspecified COPD type J44.9 Active 68675798 Problem Arteriosclerotic coronary artery disease I25.10 Active 70749070 Problem Weight gain R63.5 Active 9685945 Problem Rheumatoid arthritis M06.9 Active 17067851 Problem Panic attacks F41.0 Active 187655963 Problem Irritable bowel syndrome with diarrhea K58.0 Active 648925114 Problem Seasonal allergies J30.2 Active 769223677 Problem Mild episode of recurrent major depressive disorder F33.0 Active 039184159 Problem Neuropathy G62.9 Active 846673800 Problem Other insomnia G47.09 Active 181009794 Problem Mixed hyperlipidemia E78.2 Active 890791427 Problem Hyperinsulinemia E16.1 Active 85806069 Problem Other palletizer (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 Active 225922406 Problem Cerebrovascular accident (CVA), unspecified mechanism I63.9 Active 849354385 Problem Chronic obstructive pulmonary disease, unspecified J44.9 Active 26789803834006189 Problem Obstructive sleep apnea G47.33 Active 23887121 ALLERGIES Substance Reaction Event Type Date Status Breo Ellipta Nausea, dizziness Drug Allergy February, Active Solu-Medrol rash, swelling Drug Allergy February, Active Paxil Unknown Drug Allergy February, Active Hydrocodone-Acetaminophen hives Drug Allergy February, Active Doxycycline Hyclate local swellling Drug Allergy February, Active Codeine Sulfate hives Drug Allergy February, Active Iodinated Contrast Media - Iv Dye unknown Non Drug Allergy February, Active Oxybutynin 5 Ea Tablet mouth sores Non Drug Allergy February, Active ENCOUNTERS Encounter Location Date Diagnosis [place] [address] [address] Jul, [place] [address] 98573- 2092 Jun, [place] [address] 90691- 5824 May, [place] [address] 78274- 9065 May, Chronic obstructive pulmonary disease, unspecified COPD type J44.9 ; Primary insomnia F51.01 ; Fatigue, unspecified type R53.83 and Weight gain R63.5 [place] [address] [place] [id number] [place] [address] 10122- 6312 May, Thrush B37.0 [place] [address] [place] [id number] [place] [address] 84333- 2379 May, Mild episode of recurrent major depressive disorder F33.0 and Generalized anxiety disorder F41.1 [place] [address] 07841- 9528 May, Thrush B37.0 [place] [address] [place] [id number] [place] [address] 92617- 4769 Apr, Cough R05 [place] [address] 31344- 0803 Mar, Mild episode of recurrent major depressive disorder F33.0 [facility] [address] [place] [id number] [place] [address] 14513- 7483 Mar, Mild episode of recurrent major depressive disorder F33.0 and Generalized anxiety disorder F41.1 [facility] [address] [place] [id number] [place] [address] 78977- 2429 Mar, Seasonal allergies J30.2 [facility] [address] 12447- 1826 Mar, Seasonal allergies J30.2 [facility] [address] 99309- 6527 February, Generalized anxiety disorder F41.1 [facility] [address] [place] [id number] [place] [address] 73543 -7989 February, Cough R05 and Seasonal allergies J30.2 [facility] [address] 16006- 8841 February, Generalized anxiety disorder F41.1 and Mild episode of recurrent major depressive disorder F33.0 [facility] [address] 24760- 1192 February, Other residential (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 ; Anxiety F41.9 ; Panic attacks F41.0 and Irritable bowel syndrome with diarrhea K58.0 [facility] [address] [place] [id number] [place] [address] 66388- 5118 February, [facility] [address] [place] [id number] [place] [address] 16835- 4980 Jan, Mixed hyperlipidemia E78.2 [facility] [address] [place] [id number] [place] [address] 33485- 1666 Jan, [facility] [address] [place] [id number] [place] [address] 40350- 2947 Jan, [facility] [address] 36957- 1226 Jan, [facility] [address] [address]- 7308 Jan, [facility] [id number] [place] [address] 23668- 8496 Dec, [facility] [address] [place] [id number] [place] [address] 47650- 6506 Dec, [facility] [address] [place] [id number] [place] [address] 75349- 4609 Dec, [facility] [id number] [place] [address] 85222- 1618 Nov, Dysthymic disorder F34.1 [facility] [address] [place] [id number] [place] [address] 679732- 8570 Oct, [facility] [address] [place] [id number] [place] [address] 407093- 3290 Oct, [facility] [id number] [place] [address] 55320- 6033 Oct, [facility] [address] [place] [id number] [place] [address] 67773- 3513 Oct, Diarrhea, unspecified type R19.7 and Dysuria R30.0 [facility] [address] [address]- 7965 Oct, [facility] [id number] [place] [address] 049480- 6411 Sep, [facility] [address] [address] 8[address] Sep, [facility] [address] [place] [id number] [place] [address] 292395- 0895 Sep, Anxiety F41.9 [facility] [address] [address] [address] Sep, Cerebrovascular accident (CVA), unspecified mechanism I63.9 ; Mixed hyperlipidemia E78.2 ; Gastroesophageal reflux disease with esophagitis K21.0 and Anxiety F41.9 [place] [address] [place] [id number] [place] [address] 66465- 4126 Sep, [place] [address] [place] [id number] [place] [address] 04531- 6331 Aug, Chronic obstructive pulmonary disease, unspecified J44.9 ; Asthma J45.909 ; Nausea R11.0 ; Dysthymic disorder F34.1 ; Cerebrovascular accident (CVA), unspecified mechanism I63.9 and Rheumatoid arthritis M06.9 [place] [address] 12245- 0477 Aug, Nausea R11.0 ; Encounter for immunization Z23 ; Sleep apnea in adult G47.30 ; Rheumatoid arthritis involving multiple sites, unspecified rheumatoid factor presence M06.9 ; Generalized anxiety disorder F41.1 ; Dysthymic disorder F34.1 and Asthma J45.909 [place] [address] [place] [id number] [place] [address] 09121- 6827 Jul, [place] [address] 25469- 6638 May, ADHD (attention deficit hyperactivity disorder), combined type F90.2 ; Generalized anxiety disorder F41.1 and Persistent depressive disorder F34.1 [place] [address] [place] [id number] [place] [address] 80363- 8330 May, Cerebrovascular accident (CVA), unspecified mechanism I63.9 [place] [address] [place] [id number] [place] [address] 38836- 4108 Apr, Mixed hyperlipidemia E78.2 and Cerebrovascular accident (CVA ), unspecified mechanism I63.9 [place] [address] [place] [id number] [place] [address] 13582- 8282 Apr, Generalized anxiety disorder F41.1 [place] [address] [place] [id number] [place] [address] 11219- 9974 Apr, Bronchitis J40 and Tobacco use Z72.0 [facility] [address] [place] [id number] [place] [address] 54747- 1460 Apr, Mixed hyperlipidemia E78.2 [facility] [address] [place] [id number] [place] [address] 48574- 1037 Apr, Other residential (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 [facility] [address] 34725- 8895 Apr, [facility] [address] 34682- 9901 Apr, Generalized anxiety disorder F41.1 [place] [address] 41946- 6969 Apr, Obstructive sleep apnea G47.33 and Hyperinsulinemia E16.1 [place] [address] 78695- 5857 Apr, ADHD (attention deficit hyperactivity disorder), combined type F90.2 ; Generalized anxiety disorder F41.1 and Persistent depressive disorder F34.1 [place] [address] [place] [id number] [place] [address] 80584- 8098 Mar, [place] [address] [place] [id number] [place] [address] 16207- 4553 Mar, Generalized anxiety disorder F41.1 [place] [address] 54533- 9932 Mar, Tarsal tunnel syndrome of both lower extremities G57.53 [facility] [address] [place] [id number] [place] [address] 33426- 3723 February, [place] [address] 65839- 0973 February, [facility] [address] [place] [id number] [place] [address] 66954- 5196 February, Asthma J45.909 [facility] [address] [place] [id number] [place] [address] 86870- 7568 February, Generalized anxiety disorder F41.1 [place] [address] 00152- 1020 February, Hypoxemia R09.02 ; Hyperglycemia R73.9 ; Rheumatoid arthritis M06.9 and Generalized anxiety disorder F41.1 [place] [address] 80392- 8836 February, [place] [address] 36719- 3583 Jan, Chronic obstructive pulmonary disease, unspecified J44.9 [place] [address] 19241- 0740 Jan, Chronic pain syndrome G89.4 [place] [address] 88121- 5473 Jan, Hypoxemia R09.02 [place] [address] 91777- 2758 Jan, [place] [address] 74445- 9847 Jan, Chronic obstructive pulmonary disease, unspecified J44.9 ; Hypoxemia R09.02 ; Other insomnia G47.09 and Left anterior shoulder pain M25.512 [place] [address] [place] [id number] [place] [address] 32351- 6208 Jan, Numbness in feet R20.0 and Neuropathy G62.9 [place] [address] [place] [id number] [place] [address] 35136- 1742 Jan, [place] [address] 74283- 3030 Dec, Acute pain of left shoulder M25.512 [place] [address] [place] [id number] [place] [address] 60205- 2371 Dec, Acute pain of left shoulder M25.512 [place] [address] [address]- 8740 Dec, Generalized anxiety disorder F41.1 [facility] [id number] [place] [address] 21619 2546 03 Dec, 2016 Generalized anxiety disorder F41.1 [facility] [address] [address]- 5526 Nov, ADHD (attention deficit hyperactivity disorder), combined type F90.2 ; Generalized anxiety disorder F41.1 and Persistent depressive disorder F34.1 [facility] [address] [address]- 8261 Nov, Acute pain of left shoulder M25.512 [facility] [id number] [place] [address] 84138- 5456 20 Nov, 2016 ADHD (attention deficit hyperactivity disorder), combined type F90.2 ; Generalized anxiety disorder F41.1 and Persistent depressive disorder F34.1 [facility] [id number] [place] [address] 03195- 9971 17 Nov, 2016 Chronic pain syndrome G89.4 [facility] [address] [place] [id number] [place] [address] 22491 2546 13 Nov, 2016 Chronic pain syndrome G89.4 [facility] [address] [address]- 2546 08 Nov, 2016 Acute pain of left shoulder M25.512 [facility] [address] [address]- 4743 07 Nov, 2016 Generalized anxiety disorder F41.1 [facility] [id number] [place] [address] 87134 2545 06 Nov, 2016 Acute pain of left shoulder M25.512 [facility] [address] [address]- 1859 06 Nov, 2016 ADHD (attention deficit hyperactivity disorder), combined type F90.2 ; Generalized anxiety disorder F41.1 and Persistent depressive disorder F34.1 [place] [address] 71159- 6741 Nov, Acute pain of left shoulder M25.512 ; Generalized anxiety disorder F41.1 ; Chronic pain syndrome G89.4 ; Hyperinsulinemia E16.1 ; Pain of left foot M79.672 and Pain in right foot M79.671 [place] [address] 15574- 4231 Oct, ADHD (attention deficit hyperactivity disorder), combined type F90.2 ; Generalized anxiety disorder F41.1 and Dysthymic disorder F34.[address] 13056- 5709 Sep, [address] 96100- 0615 Sep, [address] 50095- 4881 Sep, Routine gynecological examination V72.31 ; Cervical cancer screening Z12.4 ; Breast cancer screening Z12.39 ; Colon cancer screening Z12.11 ; Hypokalemia E87.6 ; Herpes simplex type 1 infection B00.9 and Abscess of right axilla L02.[address] 42488- 4405 Sep, [address] 59205- 5430 Sep, ADHD (attention deficit hyperactivity disorder), combined type F90.2 ; Generalized anxiety disorder F41.1 and Dysthymic disorder F34.[address] 67791- 3983 Aug, [place] [address] 67004- 0269 Aug, [address] 98296- 8650 Aug, Generalized anxiety disorder F41.1 [facility] [address] [place] [id number] [place] [address] 93554- 6497 Aug, ADHD (attention deficit hyperactivity disorder), combined type F90.2 ; Generalized anxiety disorder F41.1 and Dysthymic disorder F34.1 [place] [address] [place] [id number] [place] [address] 61241- 6245 Jul, Chronic pain syndrome G89.4 ; Hypertension I10 ; Hypokalemia E87.6 ; Asthma J45.909 and Nausea R11.0 [place] [address] [place] [id number] [place] [address] 06019- 5003 Jul, [place] [address] 61860- 9360 Jul, Asthma J45.909 [place] [address] 54392- 2402 Jul, ADHD (attention deficit hyperactivity disorder), combined type F90.2 ; Generalized anxiety disorder F41.1 and Dysthymic disorder F34.1 [place] [address] 57828- 0499 Jul, [place] [address] [place] [id number] [place] [address] 55610- 1650 Jul, Hypertension I10 ; Arteriosclerotic coronary artery disease I25.10 ; Mixed hyperlipidemia E78.2 ; Other palletizer (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 and Hyperglycemia R73.9 [place] [address] [place] [id number] [place] [address] 33401- 8302 16 Jun, 2016 Hypokalemia E87.6 and Hyperglycemia R73.9 [place] [address] 02164- 4082 14 Jun, 2016 [place] [address] 46492- 2166 13 Jun, 2016 Abnormal kidney function N28.9 [place] [address] 20439- 2991 Jun, [place] [address] 69283- 7822 Jun, ADHD (attention deficit hyperactivity disorder), combined type F90.2 ; Generalized anxiety disorder F41.1 and Dysthymic disorder F34.1 [place] [address] 07885- 4128 Jun, Generalized anxiety disorder F41.1 and Dysthymic disorder F34.1 [place] [address] 18407- 5111 Jun, Hypokalemia E87.6 [place] [address] 60249- 2471 May, Hypokalemia E87.6 ; Vertigo R42 and Hyperinsulinemia E16.1 [place] [address] 43688- 8309 May, [place] [address] 33400- 0017 May, Abnormal kidney function N28.9 ; Hyperinsulinemia E16.1 and Nausea R11.0 [place] [address] 40970- 7602 May, Hypokalemia E87.6 ; Nausea R11.0 ; Epigastric pain R10.13 ; Dehydration E86.0 ; Diaphoresis R61 and Right arm pain M79.601 [place] [address] 84520- 6513 May, [place] [address] 85836- 2180 May, Hypokalemia E87.6 [place] [address] 29067- 5831 May, Hypokalemia E87.6 [place] [id number] [place] [address] 13895- 6208 Apr, [place] [address] [place] [id number] [place] [address] 02645- 8193 Apr, ADHD (attention deficit hyperactivity disorder), combined type F90.2 ; Generalized anxiety disorder F41.1 and Dysthymic disorder F34.1 [place] [address] [place] [id number] [place] [address] 04355- 4251 Apr, Right arm pain M79.601 and Hyperinsulinemia E16.1 [place] [address] [place] [id number] [place] [address] 20035- 0224 Mar, [place] [address] [place] [id number] [place] [address] 81725- 8395 Mar, [place] [address] [place] [id number] [place] [address] 83292- 7852 Mar, Hyperinsulinemia E16.1 ; Hyperlipidemia, unspecified hyperlipidemia type E78.5 ; Central venous catheter in place Z78.9 ; Generalized anxiety disorder F41.1 and Urinary tract infection, site not specified N39.0 [place] [address] [place] [id number] [place] [address] 41856- 0549 Mar, ADHD (attention deficit hyperactivity disorder), combined type F90.2 ; Generalized anxiety disorder F41.1 and Dysthymic disorder F34.1 [place] [address] [place] [id number] [place] [address] 11711- 3314 February, ADHD (attention deficit hyperactivity disorder), combined type F90.2 ; Generalized anxiety disorder F41.1 and Dysthymic disorder F34.1 [place] [address] [place] [id number] [place] [address] 07508- 4252 February, [place] [address] [place] [id number] [place] [address] 44783- 1212 February, [place] [address] [place] [id number] [place] [address] 82360- 6064 February, Hypertension I10 and Weight gain R63.5 [facility] [id number] [place] [address] 72189- 0609 February, Major depressive disorder, recurrent, moderate F33.1 and Generalized anxiety disorder F41.1 [place] [id number] [place] [address] 41697- 1850 February, ADHD (attention deficit hyperactivity disorder), combined type F90.2 ; Generalized anxiety disorder F41.1 and Dysthymic disorder F34.1 [place] [address] [place] [id number] [place] [address] 17704- 8430 February, [place] [address] [place] [id number] [place] [address] 52373- 0838 February, Asthma J45.909 ; Weight gain R63.5 ; Hypertension I10 ; Rheumatoid arthritis M06.9 and Chronic pain syndrome G89.4 [place] [address] [place] [id number] [place] [address] 22546- 9051 Jan, ADHD (attention deficit hyperactivity disorder), combined type F90.2 ; Generalized anxiety disorder F41.1 and Dysthymic disorder F34.1 [place] [address] [place] [id number] [place] [address] 69802- 9281 Dec, ADHD (attention deficit hyperactivity disorder), combined type F90.2 ; Generalized anxiety disorder F41.1 and Dysthymic disorder F34.1 [place] [id number] [place] [address] 15242- 7523 Dec, [place] [id number] [place] [address] 16423- 6936 Nov, [place] [address] [place] [id number] [place] [address] 09949- 7592 Nov, [place] [address] [place] [id number] [place] [address] 09453- 1333 Nov, [place] [address] [place] [id number] [place] [address] 66375- 4640 Nov, [facility] [address] [address]- 5575 Oct, [facility] [address] [address]- 9312 Oct, [facility] [address] [address]- 3671 Oct, [facility] [address] [place] [id number] [place] [address] 52653- 8678 Sep, [facility] [address] [address]- 0688 Sep, [facility] [address] [place] [id number] [place] [address] 15424- 2513 Sep, Agoraphobia with panic disorder F40.01 ; Attention-deficit hyperactivity disorder, combined type F90.2 and Dysthymic disorder F34.1 [facility] [address] [address]- 9831 Aug, [facility] [address] [address] Aug, [facility] [place] [address] [address] Aug, [facility] [place] [address] [address] Aug, Dysthymic disorder F34.1 ; Generalized anxiety disorder F41.1 and ADHD (attention deficit hyperactivity disorder), combined type F90.2 [facility] [place] [id number] [address] Aug, ADHD (attention deficit hyperactivity disorder), combined type F90.2 ; Generalized anxiety disorder F41.1 and Dysthymic disorder F34.1 [facility] [place] [address] [address] Jul, Urinary tract infection, site not specified N39.0 ; Hypotension, unspecified I95.9 and Breast cancer screening Z12.39 [facility] [place] [address] [address] Jul, [facility] [place] [id number] [place] [address] Jul, [facility] [place] [id number] [place] [address] Jul, Urinary tract infection, site not specified N39.0 ; Nausea R11.0 ; Gastroenteritis K52.9 ; Renal failure N19 and Other hypotension I95.89 [facility] [id number] [place] [address] 61408- 3559 Jul, [facility] [id number] [place] [address] 09043- 2601 Jul, [facility] [id number] [place] [address] 95260- 0168 Jul, [facility] [id number] [place] [address] 99044- 1475 Jun, [facility] [id number] [place] [address] 21301- 1087 Jun, Major depression in partial remission 296.25 ; Generalized anxiety disorder 300.02 and ADHD, predominantly inattentive type 314.01 [id number] [place] [address] 74464- 4544 May, [facility] [id number] [place] [address] 91178- 1147 Apr, Major depressive disorder, recurrent episode, severe, without mention of psychotic behavior 296.33 ; Agoraphobia with panic disorder 300.21 and Generalized anxiety disorder 300.02 [facility] [id number] [place] [address] 27675- 6864 Apr, ADHD (attention deficit hyperactivity disorder), combined type 314.01 ; Generalized anxiety disorder 300.02 and Dysthymic disorder 300.4 [facility] [id number] [place] [address] 71999- 8412 Apr, CAD (coronary artery disease) 414.00 ; HTN (hypertension) 401.9 and Tobacco use 305.1 [facility] [id number] [place] [address] 02980- 7963 Apr, [facility] [id number] [place] [address] 55206- 6269 Mar, ADHD (attention deficit hyperactivity disorder), combined type 314.01 ; Generalized anxiety disorder 300.02 ; Dysthymic disorder 300.4 ; No condition on [place] II V71.09 ; Rheumatoid arthritis 714.0 ; Incontinence 788.30 ; Irritable bowel syndrome 564.1 ; Osteoporosis 733.00 and Chronic pain 338.29 [facility] [id number] [place] [address] 29973- 2832 Mar, Agoraphobia with panic disorder 300.21 and Major depressive disorder, recurrent episode, moderate 296.32 [facility] [id number] [place] [address] 42014- 8872 Mar, [facility] [id number] [place] [address] 80405- 9420 February, [facility] [id number] [place] [address] 86392- 5194 February, Agoraphobia with panic disorder 300.21 and Major depressive disorder, recurrent episode, moderate 296.32 [facility] [id number] [place] [address] 83444- 7974 February, [facility] [id number] [place] [address] 17055- 2934 Jan, [facility] [address] 76550- 0567 Jan, [facility] [id number] [place] [address] 96323- 5636 Dec, [facility] [address] 02233- 5995 Dec, [facility] [place] [facility] [address] [id number] [place] [address]- 6736 Dec, [facility] [place] [facility] [address] [id number] [place] [address]- 0364 Dec, [facility] [place] [facility] [address] [facility] [id number] [place] [address]- 2433 Dec, [facility] [place] [facility] [address] [id number] [place] [address]- 3730 Dec, [facility] [place] [facility] [address] [id number] [place] [address]- 2557 Nov, [facility] [place] [facility] [address] [id number] [place] [address]- 2085 Nov, [facility] [place] [facility] [address] [facility] [id number] [place] [address]- 1856 Nov, 2014 [facility] [place] [facility] [address] [facility] [id number] [place] [address]- 4424 Nov, [facility] [place] [facility] [address] [id number] [place] [address]- 6243 Nov, [facility] [place] [facility] [address] [facility] [id number] [place] [address]- 8874 Nov, [facility] [place] [facility] [address] [facility] [id number] [place] [address]- 6599 Nov, [facility] [place] [facility] [address] [facility] [id number] [place] [address]- 8454 Nov, [facility] [place] [facility] [address] [id number] [place] [address]- 3189 Oct, [facility] [place] [facility] [address] [facility] [id number] [place] [address]- 0835 Oct, [facility] [place] [facility] [address] [facility] [id number] [address]- 8473 Oct, [facility] [place] [facility] [address] [id number] [place] [address]- 7399 Oct, [facility] [place] [facility] [address] [id number] [place] [address]- 3942 Oct, [facility] [place] [facility] [address] [id number] [place] [address]- 4474 Oct, [facility] [place] [facility] [address] [id number] [place] [address]- 8719 Sep, [facility] [place] [facility] [address] [id number] [place] [address]- 4922 Sep, [facility] [place] [facility] [address] [id number] [place] [address]- 1415 Sep, [facility] [place] [facility] [address] [id number] [place] [address]- 4238 Sep, [facility] [place] [facility] [address] [id number] [place] [address]- 3091 Sep, [facility] [place] [facility] [address] [id number] [place] [address]- 5734 Sep, [facility] [place] [facility] [address] [id number] [place] [address]- 0088 Sep, [facility] [place] [facility] [address] [id number] [place] [address]- 9940 Aug, [facility] [place] [facility] [address] [id number] [place] [address]- 5918 Aug, [facility] [place] [facility] [address] [id number] [place] [address]- 1007 Aug, [facility] [place] [facility] [address] [id number] [place] [address]- 4320 Aug, [facility] [place] [facility] [address] [id number] [place] [address]- 4519 Aug, [facility] [place] [facility] [address] [id number] [place] [address]- 8974 Aug, [facility] [place] [facility] [address] [id number] [place] [address]- 1007 Jul, [facility] [place] [facility] [address] [id number] [place] [address]- 9459 Jul, [facility] [place] [facility] [address] [id number] [place] [address]- 7588 Jul, [facility] [place] [facility] [address] [id number] [place] [address]- 6618 Jul, [facility] [place] [facility] [address] [id number] [place] [address]- 8628 Jul, [facility] [place] [facility] [address] [id number] [place] [address]- 4628 Jul, [facility] [place] [facility] [address] [id number] [place] [address]- 0542 Jun, [facility] [place] [facility] [address] [id number] [place] [address]- 5774 Jun, [facility] [place] [facility] [address] [id number] [place] [address]- 6744 May, [facility] [place] [facility] [address] [id number] [place] [address]- 8981 May, [facility] [place] [facility] [address] [id number] [place] [address]- 1139 Apr, [facility] [place] [facility] [address] [id number] [place] [address]- 0751 Apr, [facility] [place] [facility] [address] [id number] [place] [address]- 1590 Apr, [facility] [place] [facility] [address] [id number] [place] [address]- 7606 Apr, [facility] [place] [facility] [address] [id number] [place] [address]- 9130 Mar, [facility] [place] [facility] [address] [id number] [place] [address]- 4534 Mar, [facility] [address] [id number] [place] [address]- 0017 Mar, [facility] [place] [facility] [address] [id number] [place] [address]- 5677 Mar, [facility] [place] [facility] [address] [id number] [place] [address]- 6795 February, [facility] [place] [facility] [address] [id number] [place] [address]- 6854 February, [facility] [place] [facility] [address] [id number] [place] [address]- 2696 February, [facility] [place] [facility] [address] [id number] [place] [address]- 3037 February, [facility] [place] [facility] [address] [id number] [place] [address]- 5534 February, [facility] [address] [id number] [place] [address]- 9724 February, [facility] [place] [facility] [address] [id number] [place] [address]- 9211 Jan, [facility] [place] [facility] [address] [id number] [place] [address]- 3912 Jan, [facility] [place] [facility] [address] [id number] [place] [address]- 4863 Dec, [facility] [place] [facility] [address] [id number] [place] [address]- 8697 Dec, [facility] [place] [facility] [address] [id number] [place] [address]- 0055 Nov, [facility] [place] [facility] [address] [id number] [place] [address]- 6986 Nov, [facility] [place] [facility] [address] [id number] [place] [address]- 5423 Oct, [facility] [place] [facility] [address] [id number] [place] [address]- 5712 Oct, [facility] [place] [facility] [address] [id number] [place] [address]- 6482 Oct, [facility] [place] [facility] [address] [id number] [place] [address]- 0894 Oct, [facility] [place] [facility] [address] [id number] [place] [address]- 2849 Sep, [facility] [place] [facility] [address] [id number] [place] [address]- 1661 Sep, [facility] [place] [facility] [address] [id number] [place] [address]- 1257 Sep, [facility] [place] [facility] [address] [id number] [place] [address]- 4044 Sep, [facility] [place] [facility] [address] [id number] [place] [address]- 2700 Sep, [facility] [place] [facility] [address] [id number] [place] [address]- 6467 Sep, [facility] [place] [facility] [address] [id number] [place] [address]- 1337 Sep, [facility] [place] [facility] [address] [id number] [address]- 3442 Sep, [facility] [place] [facility] [address] [id number] [address]- 8490 Aug, [facility] [place] [facility] [address] [id number] [place] [address]- 9341 Aug, [facility] [place] [facility] [address] [id number] [address]- 1802 Aug, [facility] [place] [facility] [address] [facility] [id number] [place] [address]- 5567 Aug, [facility] [place] [facility] [address] [id number] [place] [address] 2543 Aug, [facility] [address] [id number] [place] [address]- 9454 Aug, [facility] [place] [facility] [address] [id number] [place] [address]- 8100 Aug, [facility] [place] [facility] [address] [id number] [place] [address]- 6855 Aug, [facility] [place] [facility] [address] [id number] [place] [address]- 3599 Aug, [facility] [place] [facility] [address] [id number] [place] [address]- 4310 Jul, [facility] [place] [facility] [address] [id number] [place] [address]- 1236 Jun, [facility] [place] [facility] [address] [id number] [place] [address]- 6394 May, [facility] [place] [facility] [address] [id number] [place] [address]- 5643 May, [facility] [place] [facility] [address] [id number] [place] [address]- 2384 May, [facility] [place] [facility] [address] [id number] [place] [address]- 0181 Apr, [facility] [place] [facility] [address] [id number] [place] [address]- 2776 Mar, [facility] [place] [facility] [address] [id number] [place] [address] 2549 February, [facility] [place] [facility] [address] [id number] [place] [address]- 0918 Oct, [facility] [place] [facility] [address] [id number] [place] [address]- 2546 Oct, [facility] [place] [facility] [address] [id number] [place] [address]- 2299 Oct, [facility] [place] [facility] [address] [id number] [place] [address]- 9449 Oct, [facility] [place] [facility] [address] [id number] [place] [address]- 7363 Oct, [facility] [place] [facility] [address] [id number] [place] [address]- 2972 Oct, [facility] [place] [facility] [address] [id number] [place] [address]- 4394 Sep, [facility] [place] [facility] [address] [id number] [place] [address]- 4883 Sep, [facility] [place] [facility] [address] [id number] [place] [address]- 8643 Aug, [facility] [place] [facility] [address] [id number] [place] [address]- 8291 Aug, [facility] [place] [facility] [address] [id number] [place] [address]- 4178 Jul, [facility] [place] [facility] [address] [id number] [place] [address]- 0452 Jul, [facility] [place] [facility] [address] [id number] [place] [address]- 8818 Jul, [facility] [place] [facility] [address] [id number] [place] [address]- 6731 Jul, [facility] [place] [facility] [address] [id number] [place] [address]- 9228 Jul, [facility] [place] [facility] [address] [id number] [place] [address]- 4441 Jul, [facility] [place] [facility] [address] [id number] [place] [address]- 7532 Jul, [facility] [place] [facility] [address] [id number] [place] [address]- 6551 Jul, [facility] [place] [facility] [address] [id number] [place] [address]- 8016 16 Jun, 2012 [facility] [place] [facility] [address] [id number] [place] [address]- 2512 Jun, [facility] [place] [facility] [address] [id number] [place] [address]- 0088 May, [facility] [place] [facility] [address] [id number] [place] [address]- 5843 Apr, [facility] [place] [facility] [address] [id number] [place] [address]- 3765 Mar, [facility] [place] [facility] [address] [id number] [place] [address]- 0160 Mar, [facility] [place] [facility] [address] [id number] [place] [address]- 6265 Mar, [facility] [place] [facility] [address] [id number] [place] [address]- 2806 Mar, [facility] [place] [facility] [address] [id number] [place] [address]- 8494 Jan, [facility] [place] [facility] [address] [id number] [place] [address]- 9002 Nov, [facility] [place] [facility] [address] [id number] [place] [address]- 9711 Nov, [facility] [place] [facility] [address] [id number] [place] [address]- 5017 Nov, [facility] [place] [facility] [address] [id number] [place] [address]- 4890 Oct, [facility] [place] [facility] [address] [id number] [place] [address]- 9029 Sep, [facility] [place] [facility] [address] [id number] [place] [address]- 3606 Sep, [facility] [place] [facility] [address] [id number] [place] [address]- 5188 Aug, [facility] [place] [facility] [address] [id number] [address]- 0230 Aug, [facility] [address] [address]- 7475 Aug, [facility] [address] [address]- 5089 Aug, [facility] [address] [address]- 0824 Jul, [facility] [address] [address]- 9072 May, [facility] [id number] [place] [address] 49104- 9385 Jan, [facility] [address] [address]- 8122 Nov, [facility] [id number] [place] [address] 88830- 2891 Apr, [facility] [address] [address]- 3990 Dec, [facility] [address] [address]- 1824 Nov, IMMUNIZATIONS No Known Immunizations SOCIAL HISTORY Never Assessed REASON FOR VISIT cough/congestion JStrasserRN PLAN OF CARE Activity Details Follow Up prn Reason: VITAL SIGNS Height 67 in 2018-03-04 Weight 210.6 lbs 2018-03-04 Temperature 97.4 degrees Fahrenheit 2018-03-04 Heart Rate 98 bpm 2018-03-04 Respiratory Rate 24 2018-03-04 Oximetry 90 % 2018-03-04 BMI 32.98 kg/m2 2018-03-04 Blood pressure systolic 104 mmHg 2018-03-04 Blood pressure diastolic 70 mmHg 2018-03-04 MEDICATIONS Medication Instructions Dosage Frequency Start Date End Date Duration Status Tramadol HCl 50 mg Orally 4 times a day PRN PAIN 1-2 tablets Active Questran 4 GM/DOSE Orally Twice a day 1 scoop 12h Oct, 30 day(s ) Active Metoprolol Tartrate 25 MG Orally Twice a day 1 tablet with food 12h Active Xeljanz 5 mg 1 Tablet by Oral route 2 times per day 11 Dec, 2013 Active Clopidogrel Bisulfate 75 MG Orally Once a day 1 tablet 24h 30 days Active PredniSONE 20 mg Orally twice a day 1 tablet 12h February, Mar, 07 days Active Abilify 5 MG Orally Once a day 0.5 tablet every day for one week then take full tablet daily 24h 14 Feb, 2018 30 day(s) Active Xanax 0.5 MG Orally Twice a day 1 tablet as needed 12h Sep, Active Cyclobenzaprine HCl 10 MG Orally 2 times a day 1 tablet as needed 12h Jul, 30 Active Gabapentin 600 MG Orally Three times a day 1 capsule 8h Nov, 30 Active Zofran 4 MG Orally 3 times a day 1 tablet 8h May, 7 Active Albuterol Sulfate (2.5 MG/3ML) 0.083% Inhalation every 4 hours 3 ml as needed for cough or wheeze 4h 13 Jul, 2014 Active Dicyclomine HCl 20 mg Orally 2 times a day and 1 additional daily prn 1 tablet February, Active Advair Diskus 100-50 MCG/DOSE Inhalation Twice a day 1 puff 12h Jul, Active Pantoprazole Sodium 40 mg Orally Once a day 1 tablet 24h Sep, 90 days Active Vi Allergy 180 MG Orally Once a day 1 tablet as needed 24h February, Apr, 30 day(s) Active Ventolin HFA 108 (90 Base) MCG/ACT Inhalation every 6 hrs 2 puffs as needed 6h Aug, Active Venlafaxine HCl ER 150 MG Orally Once a day 2 tablet 24h Nov, Active RESULTS No Results PROCEDURES Procedure Date Ordered Result Body Site [facility] VISIT ESTABLISHED PATIENT March 04, 2018 INSTRUCTIONS MEDICATIONS ADMINISTERED No Known Medications MEDICAL (GENERAL) HISTORY Type Description Date Medical History Cardiovascular ifhesrtu-OWT-Rgvxcuhy, 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 Mendoza Medical History Stress test 03/07/13-Dr. Kelly Dietrich normal Medical History Hypertension Medical History Asthma Medical History Gastrointestinal Disorder--IBS, GERD, Hx of fatty liver Medical History Hernia 1979 Medical History Cervical dysplasia 02/16-Pap LGSIL/Irving-mild dysplasia Medical History Hyperlipidemia Medical History Rheumatoid arthritis ([place]) in remission 11/27/14 pain she has probably [...] Kidney injury 07/10/15-07/11/2015 Hospitalization History Symptomatic Hypokalemia/Nause-Via [facility] 05/13/16 Hospitalization History Stroke 05/03/2017 Hospitalization History stroke 08/24/2017--09/01/2017
--- OUTSIDE RECORDS SUMMARY | 2018-06-12 15:51 | XMS REPORT ---
Author Author DANIEL CARLTON Organization [facility] Address [address] [place] [address] Care Team Providers Care Networks Computer Consultant Name Role Phone WILLIAMINDIA CARLTON Unavailable PROBLEMS Type Condition ICD9-CM Code TDU28-TV Code Onset Dates Condition Status SNOMED Code Problem ADHD (attention deficit hyperactivity disorder), combined type F90.2 Active 26052942 Problem Generalized anxiety disorder F41.1 Active 60209029 Problem Asthma J45.909 Active 592969362 Problem Dysthymic disorder F34.1 Active 70277860 Problem Hypertension I10 Active 26783061 Problem Sleep apnea in adult G47.30 Active 20767504 Problem Chronic pain syndrome G89.4 Active 949784682 Problem Rheumatoid arthritis involving multiple sites, unspecified rheumatoid factor presence M06.9 Active 125991148 Problem Anxiety F41.9 Active 47984209 Problem Gastroesophageal reflux disease with esophagitis K21.0 Active 262479272 Problem Primary insomnia F51.01 Active 6183919 Problem Chronic obstructive pulmonary disease, unspecified COPD type J44.9 Active 76906124 Problem Arteriosclerotic coronary artery disease I25.10 Active 86779513 Problem Weight gain R63.5 Active 1469290 Problem Rheumatoid arthritis M06.9 Active 44340349 Problem Panic attacks F41.0 Active 494860405 Problem Irritable bowel syndrome with diarrhea K58.0 Active 485016052 Problem Seasonal allergies J30.2 Active 920462704 Problem Mild episode of recurrent major depressive disorder F33.0 Active 032619662 Problem Neuropathy G62.9 Active 786025857 Problem Other insomnia G47.09 Active 281540201 Problem Mixed hyperlipidemia E78.2 Active 725970374 Problem Hyperinsulinemia E16.1 Active 78149134 Problem Other custodial (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 Active 178884656 Problem Cerebrovascular accident (CVA), unspecified mechanism I63.9 Active 738757705 Problem Chronic obstructive pulmonary disease, unspecified J44.9 Active [id number] Problem Obstructive sleep apnea G47.33 Active 64365748 ALLERGIES No Information ENCOUNTERS Encounter Location Date Diagnosis [facility] [id number] [place] [address] 35502- 6930 Jul, [facility] [id number] [place] [address] 67314- 1361 Jun, [facility] [address] 80897- 7119 May, [facility] [id number] [place] [address] 25141- 7073 May, Chronic obstructive pulmonary disease, unspecified COPD type J44.9 ; Primary insomnia F51.01 ; Fatigue, unspecified type R53.83 and Weight gain R63.5 [facility] [id number] [place] [address] 85803- 8004 May, Thrush B37.0 [facility] [id number] [place] [address] 65061- 6687 May, Mild episode of recurrent major depressive disorder F33.0 and Generalized anxiety disorder F41.1 [facility] [id number] [place] [address] 40596- 0031 May, Thrush B37.0 [facility] [id number] [place] [address] 60055- 8425 Apr, Cough R05 [facility] [id number] [place] [address] 40782- 9940 Mar, Mild episode of recurrent major depressive disorder F33.0 [facility] [id number] [place] [address] 44355- 0893 Mar, Mild episode of recurrent major depressive disorder F33.0 and Generalized anxiety disorder F41.1 [facility] [place] [id number] [place] [address] 09082- 5475 Mar, Seasonal allergies J30.2 [facility] [address] [address] 8254 Mar, Seasonal allergies J30.2 [facility] [id number] [place] [address] 69254- 7657 February, Generalized anxiety disorder F41.1 [facility] [id number] [place] [address] 26688 -0565 February, Cough R05 and Seasonal allergies J30.2 [facility] [id number] [place] [address] 80326- 3123 February, Generalized anxiety disorder F41.1 and Mild episode of recurrent major depressive disorder F33.0 [facility] [id number] [place] [address] 34324- 2335 February, Other custodial (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 ; Anxiety F41.9 ; Panic attacks F41.0 and Irritable bowel syndrome with diarrhea K58.0 [facility] [id number] [place] [address] 70235- 0717 February, [facility] [id number] [place] [address] 09190- 0560 Jan, Mixed hyperlipidemia E78.2 [facility] [id number] [place] [address] 89375- 0638 Jan, [facility] [id number] [place] [address] 52171- 1910 Jan, [facility] [id number] [place] [address] 72642- 2248 Jan, [facility] [id number] [place] [address] 54526- 8535 Jan, [facility] [id number] [place] [address] 32758- 5731 Dec, [facility] [id number] [place] [address] 30258- 3442 Dec, [facility] [id number] [place] [address] 62044- 2723 Dec, [facility] [id number] [place] [address] 40588- 0601 Nov, Dysthymic disorder F34.1 [facility] [id number] [place] [address] 66427- 9600 Oct, [facility] [address] 37346- 2384 Oct, [facility] [id number] [place] [address] 30868- 2374 Oct, [facility] [address] 76596- 3531 Oct, Diarrhea, unspecified type R19.7 and Dysuria R30.0 [facility] [address] 74108- 9761 Oct, [facility] [id number] [place] [address] 91466- 3614 Sep, [facility] [address] 22707- 8077 Sep, [facility] [id number] [place] [address] 19505- 0651 Sep, Anxiety F41.9 [facility] [id number] [place] [address] 93627- 6092 Sep, Cerebrovascular accident (CVA), unspecified mechanism I63.9 ; Mixed hyperlipidemia E78.2 ; Gastroesophageal reflux disease with esophagitis K21.0 and Anxiety F41.9 [facility] [id number] [place] [address] 65915- 1627 Sep, [facility] [id number] [place] [address] 83902- 7859 Aug, Chronic obstructive pulmonary disease, unspecified J44.9 ; Asthma J45.909 ; Nausea R11.0 ; Dysthymic disorder F34.1 ; Cerebrovascular accident (CVA), unspecified mechanism I63.9 and Rheumatoid arthritis M06.9 [facility] [address] 84824- 1777 Aug, Nausea R11.0 ; Encounter for immunization Z23 ; Sleep apnea in adult G47.30 ; Rheumatoid arthritis involving multiple sites, unspecified rheumatoid factor presence M06.9 ; Generalized anxiety disorder F41.1 ; Dysthymic disorder F34.1 and Asthma J45.909 [facility] [address] 00409- 8637 Jul, [address] 78603- 6682 May, ADHD (attention deficit hyperactivity disorder), combined type F90.2 ; Generalized anxiety disorder F41.1 and Persistent depressive disorder F34.1 [facility] [address] 38590- 6895 May, Cerebrovascular accident (CVA), unspecified mechanism I63.9 [facility] [address] 31671- 0669 Apr, Mixed hyperlipidemia E78.2 and Cerebrovascular accident (CVA ), unspecified mechanism I63.9 [facility] [address] 37426- 4226 Apr, Generalized anxiety disorder F41.1 [facility] [address] 29473- 8228 Apr, Bronchitis J40 and Tobacco use Z72.[address] 32949- 0924 Apr, Mixed hyperlipidemia E78.2 [facility] [address] 91588- 4560 Apr, Other custodial (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 [facility] [address] 95847- 9442 Apr, [facility] [id number] [place] [address] 22658- 5513 Apr, Generalized anxiety disorder F41.1 [facility] [address] 50474- 0067 Apr, Obstructive sleep apnea G47.33 and Hyperinsulinemia E16.1 [facility] [address] 62928- 2735 Apr, ADHD (attention deficit hyperactivity disorder), combined type F90.2 ; Generalized anxiety disorder F41.1 and Persistent depressive disorder F34.1 [place] [address] 17178- 1202 Mar, [facility] [address] 38685- 1080 Mar, Generalized anxiety disorder F41.1 [facility] [address] 23001- 2839 Mar, Tarsal tunnel syndrome of both lower extremities G57.53 [facility] [address] 81547- 9842 February, [facility] [address] 42700- 2161 February, [facility] [id number] [place] [address] 27538- 8720 February, Asthma J45.909 [facility] [address] 83317- 1202 February, Generalized anxiety disorder F41.1 [facility] [address] 73732- 6154 February, Hypoxemia R09.02 ; Hyperglycemia R73.9 ; Rheumatoid arthritis M06.9 and Generalized anxiety disorder F41.1 [facility] [address] 20363- 6376 February, [place] [id number] [place] [address] 59826- 8098 Jan, Chronic obstructive pulmonary disease, unspecified J44.9 [facility] [id number] [place] [address] 48238- 6655 Jan, Chronic pain syndrome G89.4 [facility] [id number] [place] [address] 57205- 6027 Jan, Hypoxemia R09.02 [facility] [address] 43413- 7686 Jan, [place] [address] 76696- 8342 Jan, Chronic obstructive pulmonary disease, unspecified J44.9 ; Hypoxemia R09.02 ; Other insomnia G47.09 and Left anterior shoulder pain M25.512 [place] [address] 39810- 8575 Jan, Numbness in feet R20.0 and Neuropathy G62.9 [place] [id number] [place] [address] 68748- 9171 Jan, [facility] [id number] [place] [address] 78934- 1118 Dec, Acute pain of left shoulder M25.512 [facility] [id number] [place] [address] 39931- 2489 Dec, Acute pain of left shoulder M25.512 [facility] [id number] [place] [address] 49034- 1761 Dec, Generalized anxiety disorder F41.1 [facility] [address] 30187- 9635 Dec, Generalized anxiety disorder F41.1 [facility] [id number] [place] [address] 34396- 7553 Nov, ADHD (attention deficit hyperactivity disorder), combined type F90.2 ; Generalized anxiety disorder F41.1 and Persistent depressive disorder F34.1 [facility] [id number] [place] [address] 03465- 5356 Nov, Acute pain of left shoulder M25.512 [facility] [id number] [place] [address] 56871 2546 Nov, ADHD (attention deficit hyperactivity disorder), combined type F90.2 ; Generalized anxiety disorder F41.1 and Persistent depressive disorder F34.1 [facility] [id number] [place] [address] 38113- 6515 Nov, Chronic pain syndrome G89.4 [facility] [id number] [place] [address] 34999 2546 Nov, Chronic pain syndrome G89.4 [facility] [id number] [place] [address] 25738- 3094 Nov, Acute pain of left shoulder M25.512 [facility] [id number] [place] [address] 71385- 1994 Nov, Generalized anxiety disorder F41.1 [facility] [id number] [place] [address] 21708- 2543 Nov, Acute pain of left shoulder M25.512 [facility] [id number] [place] [address] 63918- 7236 Nov, ADHD (attention deficit hyperactivity disorder), combined type F90.2 ; Generalized anxiety disorder F41.1 and Persistent depressive disorder F34.1 [facility] [id number] [place] [address] 75468- 1879 Nov, Acute pain of left shoulder M25.512 ; Generalized anxiety disorder F41.1 ; Chronic pain syndrome G89.4 ; Hyperinsulinemia E16.1 ; Pain of left foot M79.672 and Pain in right foot M79.671 [facility] [id number] [place] [address] 66877- 4346 Oct, ADHD (attention deficit hyperactivity disorder), combined type F90.2 ; Generalized anxiety disorder F41.1 and Dysthymic disorder F34.1 [place] [id number] [place] [address] 35667- 1736 Sep, [place] [id number] [place] [address] 49423- 7493 Sep, [place] [address] 58905- 5838 Sep, Routine gynecological examination V72.31 ; Cervical cancer screening Z12.4 ; Breast cancer screening Z12.39 ; Colon cancer screening Z12.11 ; Hypokalemia E87.6 ; Herpes simplex type 1 infection B00.9 and Abscess of right axilla L02.411 [place] [id number] [place] [address] 13281- 7838 Sep, [address] 93198- 1396 Sep, ADHD (attention deficit hyperactivity disorder), combined type F90.2 ; Generalized anxiety disorder F41.1 and Dysthymic disorder F34.1 [facility] [id number] [place] [address] 00112- 0659 Aug, [place] [id number] [place] [address] 64906- 4983 Aug, [facility] [address] 23105- 7464 Aug, Generalized anxiety disorder F41.1 [facility] [id number] [place] [address] 92402- 4701 Aug, ADHD (attention deficit hyperactivity disorder), combined type F90.2 ; Generalized anxiety disorder F41.1 and Dysthymic disorder F34.1 [place] [id number] [place] [address] 80479- 6080 Jul, Chronic pain syndrome G89.4 ; Hypertension I10 ; Hypokalemia E87.6 ; Asthma J45.909 and Nausea R11.0 [place] [id number] [place] [address] 68512- 4771 Jul, [place] [id number] [place] [address] 03506- 6260 Jul, Asthma J45.909 [facility] [id number] [place] [address] 13189- 6375 Jul, ADHD (attention deficit hyperactivity disorder), combined type F90.2 ; Generalized anxiety disorder F41.1 and Dysthymic disorder F34.1 [place] [address] 64868- 4921 Jul, [facility] [id number] [place] [address] 93340- 0834 Jul, Hypertension I10 ; Arteriosclerotic coronary artery disease I25.10 ; Mixed hyperlipidemia E78.2 ; Other custodial (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 and Hyperglycemia R73.9 [place] [id number] [place] [address] 76540- 3858 16 Jun, 2016 Hypokalemia E87.6 and Hyperglycemia R73.9 [place] [id number] [place] [address] 33736- 4548 14 Jun, 2016 [place] [id number] [place] [address] 45036- 9351 13 Jun, 2016 Abnormal kidney function N28.9 [place] [id number] [place] [address] 94620- 1828 Jun, [place] [address] 19777- 6812 Jun, ADHD (attention deficit hyperactivity disorder), combined type F90.2 ; Generalized anxiety disorder F41.1 and Dysthymic disorder F34.1 [place] [id number] [place] [address] 25681- 0199 Jun, Generalized anxiety disorder F41.1 and Dysthymic disorder F34.1 [facility] [address] 08515- 9409 Jun, Hypokalemia E87.6 [place] [address] 50736- 3162 May, Hypokalemia E87.6 ; Vertigo R42 and Hyperinsulinemia E16.1 [facility] [address] 06815- 9852 May, [place] [address] 63417- 5886 May, Abnormal kidney function N28.9 ; Hyperinsulinemia E16.1 and Nausea R11.0 [place] [address] 76212- 1306 May, Hypokalemia E87.6 ; Nausea R11.0 ; Epigastric pain R10.13 ; Dehydration E86.0 ; Diaphoresis R61 and Right arm pain M79.601 [place] [address] 44096- 1979 May, [place] [address] 44494- 0592 May, Hypokalemia E87.6 [place] [address] 76847- 0297 May, Hypokalemia E87.6 [facility] [address] 63985- 9909 Apr, [place] [address] 02345- 5045 Apr, ADHD (attention deficit hyperactivity disorder), combined type F90.2 ; Generalized anxiety disorder F41.1 and Dysthymic disorder F34.1 [place] [address] 06860- 3955 Apr, Right arm pain M79.601 and Hyperinsulinemia E16.1 [place] [id number] [place] [address] 80648- 7900 Mar, [place] [id number] [place] [address] 10124- 7922 Mar, [place] [address] 75127- 1246 Mar, Hyperinsulinemia E16.1 ; Hyperlipidemia, unspecified hyperlipidemia type E78.5 ; Central venous catheter in place Z78.9 ; Generalized anxiety disorder F41.1 and Urinary tract infection, site not specified N39.0 [place] [address] 48354- 0657 Mar, ADHD (attention deficit hyperactivity disorder), combined type F90.2 ; Generalized anxiety disorder F41.1 and Dysthymic disorder F34.1 [place] [address] 31484- 7408 February, ADHD (attention deficit hyperactivity disorder), combined type F90.2 ; Generalized anxiety disorder F41.1 and Dysthymic disorder F34.1 [place] [id number] [place] [address] 96809- 7007 February, [place] [id number] [place] [address] 41458- 2241 February, [place] [id number] [place] [address] 21853- 6380 February, Hypertension I10 and Weight gain R63.5 [place] [id number] [place] [address] 53969- 9016 February, Major depressive disorder, recurrent, moderate F33.1 and Generalized anxiety disorder F41.1 [place] [id number] [place] [address] 79887- 3088 February, ADHD (attention deficit hyperactivity disorder), combined type F90.2 ; Generalized anxiety disorder F41.1 and Dysthymic disorder F34.1 [facility] [address] [address]- 4296 February, [facility] [id number] [place] [address] 535940- 5260 February, Asthma J45.909 ; Weight gain R63.5 ; Hypertension I10 ; Rheumatoid arthritis M06.9 and Chronic pain syndrome G89.4 [facility] [id number] [place] [address] 25431- 3203 Jan, ADHD (attention deficit hyperactivity disorder), combined type F90.2 ; Generalized anxiety disorder F41.1 and Dysthymic disorder F34.1 [facility] [id number] [place] [address] 65215- 7225 Dec, ADHD (attention deficit hyperactivity disorder), combined type F90.2 ; Generalized anxiety disorder F41.1 and Dysthymic disorder F34.1 [facility] [address] [place] [address] 03281- 6707 Dec, [facility] [id number] [address]- 0624 Nov, [facility] [id number] [place] [address] 46654- 5900 Nov, [facility] [id number] [address]- 4365 Nov, [facility] [id number] [address]- 7484 Nov, [facility] [id number] [address]- 3443 Oct, [facility] [id number] [place] [address] 877447- 8244 Oct, [facility] [id number]- 1089 Oct, [facility] [id number] [address]- 0784 Sep, [facility] [address] [address]- 2640 Sep, [facility] [id number] [place] [address] 65564- 6121 Sep, Agoraphobia with panic disorder F40.01 ; Attention-deficit hyperactivity disorder, combined type F90.2 and Dysthymic disorder F34.1 [facility] [id number] [place] [address] 22836- 4061 Aug, [facility] [id number] [place] [address] 09008- 0488 Aug, [facility] [id number] [place] [address] 16694- 2911 Aug, [facility] [id number] [place] [address] 36655- 6745 Aug, Dysthymic disorder F34.1 ; Generalized anxiety disorder F41.1 and ADHD (attention deficit hyperactivity disorder), combined type F90.2 [facility] [id number] [place] [address] 08181- 4861 Aug, ADHD (attention deficit hyperactivity disorder), combined type F90.2 ; Generalized anxiety disorder F41.1 and Dysthymic disorder F34.1 [facility] [address] [place] [address] 82603- 5953 Jul, Urinary tract infection, site not specified N39.0 ; Hypotension, unspecified I95.9 and Breast cancer screening Z12.39 [facility] [address] [address]- 4138 Jul, [facility] [id number] [place] [address] 18320- 3189 Jul, [facility] [id number] [place] [address] 02642- 5944 Jul, Urinary tract infection, site not specified N39.0 ; Nausea R11.0 ; Gastroenteritis K52.9 ; Renal failure N19 and Other hypotension I95.89 [place] [id number] [place] [address] 62036- 8106 Jul, [facility] [id number] [place] [address] 44746- 7377 Jul, [place] [id number] [place] [address] [id number]- 3846 Jul, [place] [id number] [place] [address] 29128- 1852 Jun, [address] [address]- [address] Jun, Major depression in partial remission 296.25 ; Generalized anxiety disorder 300.02 and ADHD, predominantly inattentive type 314.01 [place] [id number] [place] [address] [id number] 1545 May, [place] [id number] [place] [address] 88094- 7970 Apr, Major depressive disorder, recurrent episode, severe, without mention of psychotic behavior 296.33 ; Agoraphobia with panic disorder 300.21 and Generalized anxiety disorder 300.02 [place] [id number] [place] [address] 07011- 1487 Apr, ADHD (attention deficit hyperactivity disorder), combined type 314.01 ; Generalized anxiety disorder 300.02 and Dysthymic disorder 300.4 [place] [id number] [place] [address]192- 7592 Apr, CAD (coronary artery disease) 414.00 ; HTN (hypertension) 401.9 and Tobacco use 305.1 [place] [id number] [place] [address] 38329- 0709 Apr, [place] [id number] [place] [address] 53813- 2474 Mar, ADHD (attention deficit hyperactivity disorder), combined type 314.01 ; Generalized anxiety disorder 300.02 ; Dysthymic disorder 300.4 ; No condition on [place] II V71.09 ; Rheumatoid arthritis 714.0 ; Incontinence 788.30 ; Irritable bowel syndrome 564.1 ; Osteoporosis 733.00 and Chronic pain 338.29 [facility] [id number] [address] 16 Mar, 2015 Agoraphobia with panic disorder 300.21 and Major depressive disorder, recurrent episode, moderate 296.32 [facility] [id number] [place] [address] 32606- 1655 Mar, [facility] [id number] [place] [address] 67310- 7137 February, [facility] [id number] [place] [address] 18615- 0135 February, Agoraphobia with panic disorder 300.21 and Major depressive disorder, recurrent episode, moderate 296.32 [facility] [id number] [address] 8827 February, [facility] [address] [id number] [address] 7[address] Jan, [facility] [address] [id number] [address] 2674 Jan, [facility] [id number] [address] 9885 Dec, [facility] [id number] [address] 7932 Dec, [facility] [id number] [address] 9541 Dec, [facility] [id number] [address]- 6652 Dec, [facility] [id number] [address] [address] Dec, [facility] [address] [id number] [place] [address]- 2970 Dec, [facility] [place] [facility] [address] [id number] [place] [address]- 3949 Nov, 2014 [facility] [place] [facility] [address] [id number] [place] [address]- 2196 Nov, 2014 [facility] [place] [facility] [address] [id number] [place] [address]- 6186 Nov, 2014 [facility] [place] [facility] [address] [id number] [place] [address]- 3753 Nov, 2014 [facility] [place] [facility] [address] [id number] [place] [address]- 4226 Nov, 2014 [facility] [place] [facility] [address] [id number] [place] [address]- 7546 Nov, 2014 [facility] [place] [facility] [address] [id number] [place] [address]- 4749 Nov, [facility] [place] [facility] [address] [id number] [place] [address]- 7303 Nov, [facility] [place] [facility] [address] [facility] [id number] [place] [address]- 3460 Oct, [facility] [place] [facility] [address] [facility] [id number] [place] [address]- 1030 Oct, [facility] [place] [facility] [address] [id number] [place] [address]- 4853 Oct, [facility] [place] [facility] [address] [id number] [place] [address]- 5783 Oct, [facility] [place] [facility] [address] [id number] [place] [address]- 1599 Oct, [facility] [place] [facility] [address] [id number] [place] [address]- 3994 Oct, [facility] [place] [facility] [address] [id number] [place] [address]- 3081 Sep, [facility] [place] [facility] [address] [id number] [place] [address]- 8868 Sep, [facility] [place] [facility] [address] [id number] [place] [address]- 6959 Sep, [facility] [place] [facility] [address] [facility] [id number] [place] 3963 Sep, [facility] [place] [facility] [address] [id number] [place] [address]- 1094 Sep, [facility] [place] [facility] [address] [id number] [place] [address]- 1844 Sep, [facility] [place] [facility] [address] [id number] [place] [address]- 1157 Sep, [facility] [place] [facility] [address] [id number] [place] [address]- 4566 Aug, [facility] [place] [facility] [address] [id number] [place] [address]- 3899 24 Aug, 2014 [facility] [place] [facility] [address] [id number] [place] [address]- 4251 Aug, [facility] [place] [facility] [address] [id number] [place] [address]- 1898 Aug, [facility] [place] [facility] [address] [id number] [address]- 5309 Aug, [facility] [place] [facility] [address] [id number] [place] [address]- 7168 18 Aug, 2014 [facility] [place] [facility] [address] [id number] [place] [address]- 5855 17 Jul, 2014 [facility] [place] [facility] [address] [id number] [address]- 8132 17 Jul, 2014 [facility] [place] [facility] [address] [id number] [address]- 7752 13 Jul, 2014 [facility] [place] [facility] [address] [id number] [place] [address]- 4115 Jul, [facility] [place] [facility] [address] [id number] [place] [address]- 3258 Jul, [facility] [place] [facility] [address] [id number] [place] [address]- 8397 Jul, [facility] [place] [facility] [address] [id number] [place] [address]- 6938 Jun, [facility] [place] [facility] [address] [id number] [place] [address]- 5792 Jun, [facility] [place] [facility] [address] [id number] [place] [address]- 1101 May, [facility] [place] [facility] [address] [id number] [place] [address]- 5295 May, [facility] [place] [facility] [address] [id number] [place] [address]- 8926 Apr, [facility] [place] [facility] [address] [id number] [place] [address]- 5488 Apr, [facility] [place] [facility] [address] [id number] [place] [address]- 0007 Apr, [facility] [place] [facility] [address] [id number] [place] [address]- 4535 Apr, [facility] [place] [facility] [address] [id number] [place] [address]- 9594 Mar, [facility] [place] [facility] [address] [id number] [place] [address]- 4998 Mar, [facility] [place] [facility] [address] [id number] [place] [address]- 2334 Mar, [facility] [place] [facility] [address] [id number] [place] [address]- 9423 Mar, [facility] [place] [facility] [address] [id number] [place] [address]- 5459 February, [facility] [place] [facility] [address] [id number] [place] [address]- 1466 February, [facility] [place] [facility] [address] [id number] [place] [address]- 5057 February, [facility] [place] [facility] [address] [id number] [place] [address]- 1144 February, [facility] [place] [facility] [address] [id number] [place] [address]- 1406 February, [facility] [place] [facility] [address] [id number] [place] [address]- 6399 February, [facility] [place] [facility] [address] [id number] [place] [address]- 4451 Jan, [facility] [place] [facility] [address] [id number] [place] [address]- 0663 Jan, [facility] [place] [facility] [address] [id number] [place] [address]- 5974 Dec, [facility] [place] [facility] [address] [id number] [place] [address]- 9673 Dec, [facility] [place] [facility] [address] [id number] [place] [address]- 3994 Nov, [facility] [place] [facility] [address] [id number] [place] [address]- 1351 Nov, [facility] [place] [facility] [address] [id number] [address]- 9148 Oct, [facility] [place] [facility] [address] [id number] [place] [address]- 7108 Oct, [facility] [place] [facility] [address] [id number] [place] [address]- 7552 Oct, [facility] [place] [facility] [address] [id number] [place] 1942 Oct, [facility] [place] [facility] [address] [id number] [address]- 5348 Sep, [facility] [address] [id number] [place] [address]- 2271 Sep, [facility] [place] [facility] [address] [facility] [id number] [address]- 4625 Sep, [facility] [address] [facility] [id number] [place] 5257 Sep, [facility] [place] [facility] [address] [id number] [place] [address]- 5615 Sep, [facility] [address] [facility] [id number] [place] [address]- 5200 Sep, [facility] [address] [facility] [id number] [place] [address]- 7485 Sep, [facility] [id number] [address]- 0110 Sep, [facility] [place] [facility] [address] [facility] [id number] [place] [address]- 4588 Aug, [facility] [address] [facility] [id number] [place] [address]- 3525 Aug, [facility] [place] [facility] [address] [id number] [address]- 7385 Aug, [facility] [address] [facility] [id number] [place] [address]- 1809 Aug, [facility] [place] [facility] [address] [facility] [id number] [place] [address]- 0119 Aug, [facility] [place] [facility] [address] [facility] [id number] [place] [address]- 8308 Aug, [facility] [place] [facility] [address] [facility] [id number] [place] [address]- 0752 Aug, [facility] [place] [facility] [address] [id number] [address]- 1971 Aug, [facility] [place] [facility] [address] [id number] [place] [address]- 2546 Aug, [facility] [place] [facility] [address] [id number] [place] [address]- 2546 Jul, [facility] [place] [facility] [address] [id number] [place] [address]- 2546 Jun, [facility] [place] [facility] [address] [id number] [place] [address]- 2546 May, [facility] [place] [facility] [address] [id number] [place] [address]- 2546 May, [facility] [place] [facility] [address] [id number] [place] [address]- 2546 May, [facility] [place] [facility] [address] [id number] [place] [address]- 2546 Apr, [facility] [place] [facility] [address] [id number] [place] [address]- 2546 Mar, [facility] [place] [facility] [address] [id number] [place] [address]- 8308 February, [facility] [place] [facility] [address] [id number] [place] [address]- 5136 Oct, [facility] [place] [facility] [address] [id number] [place] [address]- 2546 Oct, [facility] [place] [facility] [address] [id number] [place] [address]- 2546 Oct, [facility] [place] [facility] [address] [id number] [place] [address]- 2544 Oct, [facility] [place] [facility] [address] [id number] [place] [address]- 2546 Oct, [facility] [place] [facility] [address] [id number] [place] [address]- 2546 Oct, [facility] [place] [facility] [address] [id number] [place] [address]- 2294 Sep, [facility] [place] [facility] [address] [id number] [place] [address]- 7654 Sep, [facility] [place] [facility] [address] [id number] [place] [address]- 1538 Aug, [facility] [place] [facility] [address] [id number] [place] [address]- 0055 Aug, [facility] [place] [facility] [address] [id number] [place] [address]- 9655 Jul, [facility] [place] [facility] [address] [id number] [place] [address]- 7837 Jul, [facility] [place] [facility] [address] [id number] [place] [address]- 4917 Jul, [facility] [place] [facility] [address] [id number] [place] [address]- 9911 Jul, [facility] [place] [facility] [address] [id number] [place] [address]- 1048 Jul, [facility] [place] [facility] [address] [id number] [place] [address]- 6010 Jul, [facility] [place] [facility] [address] [id number] [place] [address]- 0188 Jul, [facility] [place] [facility] [address] [id number] [place] [address] 2541 Jul, [facility] [place] [facility] [address] [id number] [address] 2541 Jun, [facility] [place] [facility] [address] [id number] [place] [address] 2544 Jun, [facility] [place] [facility] [address] [id number] [place] [address]- 1116 May, [facility] [place] [facility] [address] [id number] [place] [address]- 2546 Apr, [facility] [place] [facility] [address] [id number] [place] [address]- 3574 Mar, [facility] [place] [facility] [address] [id number] [place] [address]- 7296 Mar, [facility] [place] [facility] [address] [id number] [place] [address]- 8696 Mar, [facility] [place] [facility] [address] [id number] [place] [address]- 5050 Mar, [facility] [place] [facility] [address] [id number] [place] [address]- 2207 Jan, [facility] [place] [facility] [address] [id number] [place] [address]- 8943 Nov, [facility] [place] [facility] [address] [id number] [place] [address]- 7106 Nov, [facility] [place] [facility] [address] [facility] [id number] [place] [address]- 4792 Nov, [facility] [place] [facility] [address] [facility] [id number] [place] [address]- 0095 Oct, [facility] [place] [facility] [address] [id number] [place] [address]- 2115 Sep, [facility] [place] [facility] [address] [facility] [id number] [place] [address]- 4962 Sep, [facility] [place] [facility] [address] [id number] [place] [address] 2540 Aug, [facility] [place] [facility] [address] [id number] [place] [address]- 2549 Aug, [facility] [place] [facility] [address] [id number] [place] [address]- 0900 Aug, [facility] [place] [facility] [address] [facility] [id number] [place] [address]- 3584 Aug, [facility] [place] [facility] [address] [facility] [id number] [place] [address]- 5317 Jul, [facility] [address] [facility] [id number] [place] [address]- 3234 May, [facility] [address] [id number] [address]- 4256 Jan, [facility] [address] [id number] [address]- 5196 Nov, [facility] [id number] [address]- 9366 Apr, [facility] [address] [facility] [id number] [place] [address]- 1451 Dec, [facility] [address] [id number] [address]- 0526 Nov, IMMUNIZATIONS No Known Immunizations SOCIAL HISTORY Never Assessed REASON FOR VISIT xanax 03/08/2018 PLAN OF CARE VITAL SIGNS MEDICATIONS Medication Instructions Dosage Frequency Start Date End Date Duration Status Xanax 0.5 MG Orally Twice a day 1 tablet as needed 12h Sep, 30 days Active RESULTS No Results PROCEDURES No Known procedures INSTRUCTIONS MEDICATIONS ADMINISTERED No Known Medications MEDICAL (GENERAL) HISTORY Type Description Date Medical History Cardiovascular ihqyfazy-MWQ-Msuvmxqm, 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 Mendoza Medical History Stress test 03/07/13-Dr. Kelly Dietrich normal Medical History Hypertension Medical History Asthma Medical History Gastrointestinal Disorder--IBS, GERD, Hx of fatty liver Medical History Hernia 1979 Medical History Cervical dysplasia 02/16-Pap LGSIL/[place]-mild dysplasia Medical History Hyperlipidemia Medical History Rheumatoid [...] Surgical History Tonsillectomy Surgical History Tubal ligation 1985 Surgical History Interstim in the bladder 06/18/2015 Surgical History Port Removed 03/2016 Surgical History left shoulder march 2017 Surgical History heart monitor placement 12/22/17 Hospitalization History surgeries Hospitalization History Gastroenteritis/acute Kidney injury 07/10/15-07/11/2015 Hospitalization History Symptomatic Hypokalemia/Nause-[facility]ia [facility] 05/13/16 Hospitalization History Stroke 05/03/2017 Hospitalization History stroke 08/24/2017--09/01/2017
--- OUTSIDE RECORDS SUMMARY | 2018-06-12 15:52 | XMS REPORT ---
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 Active 422795744 Problem Generalized anxiety disorder F41.1 Active 70603992 Problem Cerebrovascular accident (CVA), unspecified mechanism I63.9 Active 047999539 Problem Asthma J45.909 Active 158222622 Problem Dysthymic disorder F34.1 Active 51402642 Problem Rheumatoid arthritis involving multiple sites, unspecified rheumatoid factor presence M06.9 Active 437969923 Problem Sleep apnea in adult G47.30 Active 35141376 Problem Seasonal allergies J30.2 Active 159425998 Problem Mild episode of recurrent major depressive disorder F33.0 Active 493910789 Problem Rheumatoid arthritis M06.9 Active 42386502 Problem Chronic pain syndrome G89.4 Active 461720506 Problem Hypertension I10 Active 83233755 Problem Anxiety F41.9 Active 86720802 Problem Gastroesophageal reflux disease with esophagitis K21.0 Active 993700546 Problem Panic attacks F41.0 Active 916133119 Problem Irritable bowel syndrome with diarrhea K58.0 Active 474224418 Problem Mixed hyperlipidemia E78.2 Active 027263809 Problem Hyperinsulinemia E16.1 Active 18657459 Problem Weight gain R63.5 Active 6204476 Problem Arteriosclerotic coronary artery disease I25.10 Active 81967883 Problem Chronic obstructive pulmonary disease, unspecified J44.9 Active [id number] Problem Obstructive sleep apnea G47.33 Active 66290086 Problem Neuropathy G62.9 Active 889679507 Problem Other insomnia G47.09 Active 379383394 ALLERGIES Substance Reaction Event Type Date Status [...] February, Active ENCOUNTERS Encounter Location Date Diagnosis [facility] [id number] [place] [address] 55914- 5916 Jul, [facility] [facility] [address] [address]71- 1982 May, Thrush B37.0 [facility] [address] 6[address]20- 1955 May, Mild episode of recurrent major depressive disorder F33.0 and Generalized anxiety disorder F41.1 [facility] [address] 91826- 5290 May, Thrush B37.0 [facility] [facility] [address] 53797- 7760 Apr, Cough R05 [facility] [address] 14585- 4674 Mar, Mild episode of recurrent major depressive disorder F33.0 [facility] [id number] [place] [address] 86691- 4645 Mar, Mild episode of recurrent major depressive disorder F33.0 and Generalized anxiety disorder F41.1 [facility] [id number] [place] [address] 74594- 1758 Mar, Seasonal allergies J30.2 [facility] [id number] [place] [address] 93981- 6877 13 Mar, 2018 Seasonal allergies J30.2 [place] [address] 95731- 2312 February, Generalized anxiety disorder F41.1 [facility] [id number] [place] [address] 48843 -1457 February, Cough R05 and Seasonal allergies J30.2 [facility] [id number] [place] [address] 95506- 5247 February, Generalized anxiety disorder F41.1 and Mild episode of recurrent major depressive disorder F33.0 [facility] [id number] [place] [address] 95129- 6961 February, 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 ; Anxiety F41.9 ; Panic attacks F41.0 and Irritable bowel syndrome with diarrhea K58.0 [facility] [id number] [place] [address] 60722- 4525 February, [facility] [id number] [place] [address] 57956- 4767 Jan, Mixed hyperlipidemia E78.2 [facility] [id number] [place] [address] 65770- 2039 Jan, [facility] [id number] [place] [address] 28409- 0563 Jan, [facility] [id number] [place] [address] 28132- 4050 Jan, [facility] [id number] [place] [address] 51367- 8980 Jan, [facility] [id number] [place] [address] 31578- 7544 Dec, [facility] [id number] [place] [address] 29625- 0390 Dec, [facility] [id number] [place] [address] 30675- 6691 Dec, [facility] [id number] [place] [address] 76052- 8195 Nov, Dysthymic disorder F34.1 [facility] [id number] [place] [address] 84420- 7908 Oct, [facility] [id number] [address] [place] [address] 6278 Oct, [facility] [id number] [place] [address] 64407- 6637 Oct, [facility] [address] 48151- 7354 Oct, Diarrhea, unspecified type R19.7 and Dysuria R30.0 [facility] [facility] [address] 53219- 3766 Oct, [facility] [address] 11158- 9354 Sep, [facility] [place] [address] 78101- 9142 Sep, [facility] [id number] [place] [address] 91974- 6313 Sep, Anxiety F41.9 [facility] [address] 84739- 9561 Sep, Cerebrovascular accident (CVA), unspecified mechanism I63.9 ; Mixed hyperlipidemia E78.2 ; Gastroesophageal reflux disease with esophagitis K21.0 and Anxiety F41.9 [facility] [id number] [place] [address] 17605- 1704 Sep, [facility] [place] [id number] [place] [address] 58783- 3034 Aug, Chronic obstructive pulmonary disease, unspecified J44.9 ; Asthma J45.909 ; Nausea R11.0 ; Dysthymic disorder F34.1 ; Cerebrovascular accident (CVA), unspecified mechanism I63.9 and Rheumatoid arthritis M06.9 [facility] [id number] [place] [address] 21885- 0229 Aug, Nausea R11.0 ; Encounter for immunization Z23 ; Sleep apnea in adult G47.30 ; Rheumatoid arthritis involving multiple sites, unspecified rheumatoid factor presence M06.9 ; Generalized anxiety disorder F41.1 ; Dysthymic disorder F34.1 and Asthma J45.909 [facility] [id number] [place] [address] 51391- 8147 Jul, [facility] [address] 49296- 5669 May, ADHD (attention deficit hyperactivity disorder), combined type F90.2 ; Generalized anxiety disorder F41.1 and Persistent depressive disorder F34.1 [place] [id number] [place] [address] 66497- 8619 May, Cerebrovascular accident (CVA), unspecified mechanism I63.[address] 26502- 7451 Apr, Mixed hyperlipidemia E78.2 and Cerebrovascular accident (CVA ), unspecified mechanism I63.9 [facility] [address] 03609- 3167 Apr, Generalized anxiety disorder F41.1 [facility] [id number] [place] [address] 71549- 6829 Apr, Bronchitis J40 and Tobacco use Z72.0 [place] [id number] [place] [address] 77097- 1180 Apr, Mixed hyperlipidemia E78.2 [facility] [address] 95074- 6045 Apr, Other nursing home (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 [place] [id number] [place] [address] 70914- 0060 Apr, [place] [id number] [place] [address] 01830- 2140 Apr, Generalized anxiety disorder F41.1 [facility] [id number] [place] [address] 60783- 3000 Apr, Obstructive sleep apnea G47.33 and Hyperinsulinemia E16.1 [facility] [id number] [place] [address] 00201- 4051 Apr, ADHD (attention deficit hyperactivity disorder), combined type F90.2 ; Generalized anxiety disorder F41.1 and Persistent depressive disorder F34.1 [facility] [id number] [place] [address] 01220- 0998 Mar, [place] [address] 41412- 1628 Mar, Generalized anxiety disorder F41.1 [facility] [id number] [place] [address] 65910- 1746 Mar, Tarsal tunnel syndrome of both lower extremities G57.53 [facility] [place] [id number] [place] [address] 07972- 0026 February, [facility] [id number] [place] [address] 71024- 4600 February, [facility] [id number] [place] [address] 27873- 9087 February, Asthma J45.909 [facility] [id number] [place] [address] 10083- 2841 February, Generalized anxiety disorder F41.1 [facility] [id number] [place] [address] 52524- 8808 February, Hypoxemia R09.02 ; Hyperglycemia R73.9 ; Rheumatoid arthritis M06.9 and Generalized anxiety disorder F41.1 [facility] [id number] [place] [address] 25819- 2710 February, [facility] [id number] [place] [address] 44829- 6061 Jan, Chronic obstructive pulmonary disease, unspecified J44.9 [place] [id number] [place] [address] 11025- 1848 Jan, Chronic pain syndrome G89.4 [facility] [address] 49159- 0885 Jan, Hypoxemia R09.02 [place] [address] 63254- 4087 Jan, [place] [address] 95432- 1010 Jan, Chronic obstructive pulmonary disease, unspecified J44.9 ; Hypoxemia R09.02 ; Other insomnia G47.09 and Left anterior shoulder pain M25.512 [place] [address] 10097- 6720 Jan, Numbness in feet R20.0 and Neuropathy G62.9 [place] [address] 62647- 7131 Jan, [facility] [facility] [address] 40751- 8871 Dec, Acute pain of left shoulder M25.512 [facility] [id number] [place] [address] 41354- 1552 Dec, Acute pain of left shoulder M25.512 [facility] [id number] [place] [address] 81725- 4734 Dec, Generalized anxiety disorder F41.1 [facility] [address] 90646- 5291 Dec, Generalized anxiety disorder F41.1 [place] [address] 02457- 4799 Nov, ADHD (attention deficit hyperactivity disorder), combined type F90.2 ; Generalized anxiety disorder F41.1 and Persistent depressive disorder F34.1 [place] [address] 10670- 4100 Nov, Acute pain of left shoulder M25.512 [facility] [id number] [place] [address] 47358- 8762 Nov, ADHD (attention deficit hyperactivity disorder), combined type F90.2 ; Generalized anxiety disorder F41.1 and Persistent depressive disorder F34.1 [facility] [id number] [place] [address] 77453- 8604 Nov, Chronic pain syndrome G89.4 [facility] [id number] [place] [address] 34271- 2124 Nov, Chronic pain syndrome G89.4 [facility] [facility] [address] 03572- 0331 Nov, Acute pain of left shoulder M25.512 [facility] [id number] [place] [address] 75274- 7608 Nov, Generalized anxiety disorder F41.1 [facility] [facility] [id number] [place] [address] 38616- 5161 Nov, Acute pain of left shoulder M25.512 [place] [id number] [place] [address] 38101- 8146 Nov, ADHD (attention deficit hyperactivity disorder), combined type F90.2 ; Generalized anxiety disorder F41.1 and Persistent depressive disorder F34.1 [facility] [id number] [place] [address] 05411- 1348 Nov, Acute pain of left shoulder M25.512 ; Generalized anxiety disorder F41.1 ; Chronic pain syndrome G89.4 ; Hyperinsulinemia E16.1 ; Pain of left foot M79.672 and Pain in right foot M79.671 [facility] [address] [place] [address] 12669- 6983 Oct, ADHD (attention deficit hyperactivity disorder), combined type F90.2 ; Generalized anxiety disorder F41.1 and Dysthymic disorder F34.1 [facility] [place] [id number] [place] [address] 45147- 3032 Sep, [facility] [place] [id number] [place] [address] 56112- 4281 Sep, [facility] [place] [id number] [place] [address] 49905- 5715 Sep, Routine gynecological examination V72.31 ; Cervical cancer screening Z12.4 ; Breast cancer screening Z12.39 ; Colon cancer screening Z12.11 ; Hypokalemia E87.6 ; Herpes simplex type 1 infection B00.9 and Abscess of right axilla L02.411 [facility] [place] [id number] [place] [address] 48854- 7058 Sep, [facility] [id number] [place] [address] 91231- 7438 Sep, ADHD (attention deficit hyperactivity disorder), combined type F90.2 ; Generalized anxiety disorder F41.1 and Dysthymic disorder F34.1 [facility] [place] [id number] [place] [address] 12435- 6575 Aug, [facility] [place] [id number] [place] [address] 10042- 1765 Aug, [facility] [place] [id number] [place] [address] 00969- 5494 Aug, Generalized anxiety disorder F41.1 [facility] [id number] [place] [address] 03772- 1108 Aug, ADHD (attention deficit hyperactivity disorder), combined type F90.2 ; Generalized anxiety disorder F41.1 and Dysthymic disorder F34.1 [place] [place] [id number] [place] [address] 63041- 1167 Jul, Chronic pain syndrome G89.4 ; Hypertension I10 ; Hypokalemia E87.6 ; Asthma J45.909 and Nausea R11.0 [place] [place] [id number] [place] [address] 96810- 9986 Jul, [place] [address] [place] [address] 35849- 8216 Jul, Asthma J45.909 [facility] [place] [id number] [place] [address] 10453- 2670 Jul, ADHD (attention deficit hyperactivity disorder), combined type F90.2 ; Generalized anxiety disorder F41.1 and Dysthymic disorder F34.1 [place] [id number] [place] [address] 86078- 8144 Jul, [facility] [id number] [place] [address] 47282- 2394 Jul, Hypertension I10 ; Arteriosclerotic coronary artery disease I25.10 ; Mixed hyperlipidemia E78.2 ; Other nursing home (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 and Hyperglycemia R73.9 [facility] [id number] [place] [address] 60596- 6443 16 Jun, 2016 Hypokalemia E87.6 and Hyperglycemia R73.9 [facility] [id number] [place] [address] 95327- 0517 14 Jun, 2016 [facility] [id number] [place] [address] 78194- 3625 Jun, Abnormal kidney function N28.9 [facility] [place] [id number] [place] [address] 46478- 8111 09 Jun, 2016 [place] [address] 95130- 9959 Jun, ADHD (attention deficit hyperactivity disorder), combined type F90.2 ; Generalized anxiety disorder F41.1 and Dysthymic disorder F34.1 [facility] [id number] [place] [address] 14264- 7146 Jun, Generalized anxiety disorder F41.1 and Dysthymic disorder F34.1 [facility] [id number] [place] [address] 11399- 7068 Jun, Hypokalemia E87.6 [place] [facility] [address] 56276- 7647 May, Hypokalemia E87.6 ; Vertigo R42 and Hyperinsulinemia E16.1 [place] [facility] [address] 55253- 3067 May, [facility] [facility] [address] 35557- 8927 May, Abnormal kidney function N28.9 ; Hyperinsulinemia E16.1 and Nausea R11.0 [facility] [address] 18675- 6274 May, Hypokalemia E87.6 ; Nausea R11.0 ; Epigastric pain R10.13 ; Dehydration E86.0 ; Diaphoresis R61 and Right arm pain M79.601 [facility] [address] 83251- 9271 May, [facility] [address] 64724- 2454 May, Hypokalemia E87.6 [facility] [address] 27247- 0589 May, Hypokalemia E87.6 [facility] [address] 29061- 2393 Apr, [facility] [address] 05394- 6767 Apr, ADHD (attention deficit hyperactivity disorder), combined type F90.2 ; Generalized anxiety disorder F41.1 and Dysthymic disorder F34.1 [place] [address] 93181- 8543 Apr, Right arm pain M79.601 and Hyperinsulinemia E16.1 [place] [address] 45269- 9014 Mar, [facility] [address] [address]- 4360 Mar, [facility] [id number] [place] [address] 00630- 8563 Mar, Hyperinsulinemia E16.1 ; Hyperlipidemia, unspecified hyperlipidemia type E78.5 ; Central venous catheter in place Z78.9 ; Generalized anxiety disorder F41.1 and Urinary tract infection, site not specified N39.0 [place] [id number] [place] [address] 64082- 6400 Mar, ADHD (attention deficit hyperactivity disorder), combined type F90.2 ; Generalized anxiety disorder F41.1 and Dysthymic disorder F34.1 [place] [id number] [place] [address] 10479- 3499 February, ADHD (attention deficit hyperactivity disorder), combined type F90.2 ; Generalized anxiety disorder F41.1 and Dysthymic disorder F34.1 [place] [id number] [place] [address] 61629- 4025 February, [place] [id number] [place] [address] 94435- 3334 February, [place] [id number] [place] [address] 44530- 9062 February, Hypertension I10 and Weight gain R63.5 [place] [id number] [place] [address] 79165- 4326 February, Major depressive disorder, recurrent, moderate F33.1 and Generalized anxiety disorder F41.1 [facility] [address] [place] [address] 25309- 2068 February, ADHD (attention deficit hyperactivity disorder), combined type F90.2 ; Generalized anxiety disorder F41.1 and Dysthymic disorder F34.1 [facility] [address] [address]- 6377 February, [place] [id number] [address] 8281 February, Asthma J45.909 ; Weight gain R63.5 ; Hypertension I10 ; Rheumatoid arthritis M06.9 and Chronic pain syndrome G89.4 [facility] [id number] [place] [address] 809575- 8305 Jan, ADHD (attention deficit hyperactivity disorder), combined type F90.2 ; Generalized anxiety disorder F41.1 and Dysthymic disorder F34.1 [facility] [id number] [place] [address] 13904- 2693 Dec, ADHD (attention deficit hyperactivity disorder), combined type F90.2 ; Generalized anxiety disorder F41.1 and Dysthymic disorder F34.1 [facility] [id number] [place] [address] 56802- 5940 Dec, [facility] [id number] [place] [address] 55840- 9384 Nov, [facility] [id number] [place] [address] 18864- 0305 Nov, [facility] [id number] [place] [address] 88635- 7009 Nov, [facility] [id number] [place] [address] 67468- 5581 Nov, [facility] [id number] [place] [address] 36829- 5964 Oct, [facility] [id number] [place] [address] 613253- 5765 Oct, [facility] [id number] [place] [address] 902998- 5248 Oct, [facility] [id number] [place] [address] 762578- 4521 Sep, [facility] [id number] [place] [address] 524975- 6522 Sep, [place] [address], [place] [address]- 4018 Sep, Agoraphobia with panic disorder F40.01 ; Attention-deficit hyperactivity disorder, combined type F90.2 and Dysthymic disorder F34.1 [place] [address] [place] [address] 81367- 1081 Aug, [facility] [id number] [place] [address] 82573- 2386 Aug, [place] [id number] [place] [address] 87304- 3762 Aug, [place] [id number] [place] [address] 81703- 8718 Aug, Dysthymic disorder F34.1 ; Generalized anxiety disorder F41.1 and ADHD (attention deficit hyperactivity disorder), combined type F90.2 [place] [id number] [place] [address] 58137- 9603 Aug, ADHD (attention deficit hyperactivity disorder), combined type F90.2 ; Generalized anxiety disorder F41.1 and Dysthymic disorder F34.1 [place] [id number] [place] [address] 06060- 2008 Jul, Urinary tract infection, site not specified N39.0 ; Hypotension, unspecified I95.9 and Breast cancer screening Z12.39 [facility] [address] [place] [address] 71816- 3547 Jul, [place] [id number] [place] [address] 26405- 2182 Jul, [place] [id number] [place] [address] 87192- 3432 Jul, Urinary tract infection, site not specified N39.0 ; Nausea R11.0 ; Gastroenteritis K52.9 ; Renal failure N19 and Other hypotension I95.89 [place] [id number] [place] [address] 80246- 3183 Jul, [facility] [address], [place] [address]- 1348 Jul, [facility] [id number] [place] [address] 05781- 8100 Jul, [facility] [id number] [place] [address] 81781- 7628 Jun, [facility] [id number] [place] [address] 73587- 8453 Jun, Major depression in partial remission 296.25 ; Generalized anxiety disorder 300.02 and ADHD, predominantly inattentive type 314.01 [place] [id number] [place] [address] 67584- 2231 May, [facility] [address] [place] [address] 87230- 5196 Apr, Major depressive disorder, recurrent episode, severe, without mention of psychotic behavior 296.33 ; Agoraphobia with panic disorder 300.21 and Generalized anxiety disorder 300.02 [place] [address] [place] [address] 79249- 0386 Apr, ADHD (attention deficit hyperactivity disorder), combined type 314.01 ; Generalized anxiety disorder 300.02 and Dysthymic disorder 300.4 [place] [address] [place] [address] 28662- 3503 Apr, CAD (coronary artery disease) 414.00 ; HTN (hypertension) 401.9 and Tobacco use 305.1 [place] [address] [place] [address] 59131- 4391 Apr, [facility] [id number] [place] [address] 81673- 0395 Mar, ADHD (attention deficit hyperactivity disorder), combined type 314.01 ; Generalized anxiety disorder 300.02 ; Dysthymic disorder 300.4 ; No condition on [place] V71.09 ; Rheumatoid arthritis 714.0 ; Incontinence 788.30 ; Irritable bowel syndrome 564.1 ; Osteoporosis 733.00 and Chronic pain 338.29 [facility] [address] [id number], [place] [id number] Mar, Agoraphobia with panic disorder 300.21 and Major depressive disorder, recurrent episode, moderate 296.32 [facility] [id number] [place] [address] [id number]- 8306 Mar, [facility] [id number] [place] [address] [id number]- 7257 February, [facility] [id number] [place] [address] 29787- 0424 February, Agoraphobia with panic disorder 300.21 and Major depressive disorder, recurrent episode, moderate 296.32 [facility] [id number] [place] [address] [id number] [id number] February, [facility] [address] [id number] [place] [address] 04480- 5548 Jan, [facility] [id number] [place] [address] 04873- 0000 Jan, [facility] [id number] [place] [address] 47490- 3278 Dec, [facility] [id number], [place] [address] 2396 Dec, [facility] [id number] [place] [address] 64738- 6377 Dec, [facility] [address] [id number] [address] 6897 Dec, [facility] [id number] [place] [address] 657423- 5705 Dec, [facility] [id number] Dec, [facility] [id number] [place] [address] [id number] Nov, 2014 [facility] [place] [facility] [address] [id number] [place] [address]- 8874 Nov, 2014 [facility] [place] [facility] [address] [id number] [place] [address]- 8956 Nov, 2014 [facility] [place] [facility] [address] [facility] [id number] [place] [address]- 3490 Nov, 2014 [facility] [place] [facility] [address] [id number] [place] [address]- 1529 Nov, 2014 [facility] [place] [facility] [address] [id number] [place] [address]- 7426 Nov, 2014 [facility] [place] [facility] [address] [facility] [id number] [place] [address]- 1927 Nov, [facility] [place] [facility] [address] [facility] [id number] [place] [address]- 8228 Nov, [facility] [place] [facility] [address] [facility] [id number] [place] [address]- 1399 Oct, [facility] [place] [facility] [address] [facility] [id number] [place] [address]- 9989 Oct, [facility] [place] [facility] [address] [facility] [id number] [place] [address]- 7122 Oct, [facility] [place] [facility] [address] [facility] [id number] [place] [address]- 2171 Oct, [facility] [place] [facility] [address] [facility] [id number], [place] [address]- 3982 Oct, [facility] [place] [facility] [address] [facility] [id number] [place] [address]- 5957 Oct, [facility] [place] [facility] [address] [facility] [id number] [place] [address]- 5400 Sep, [facility] [place] [facility] [address] [facility] [id number] [place] [address]- 5392 Sep, [facility] [place] [facility] [address] [id number] [place] [address]- 2702 16 Sep, 2014 [facility] [place] [facility] [address] [id number] [place] 7977 16 Sep, 2014 [facility] [place] [facility] [address] [id number] [place] 9216 Sep, [facility] [place] [facility] [address] [id number] [place] [address]- 6860 05 Sep, 2014 [facility] [place] [facility] [address] [id number] [place] [address]- 1891 05 Sep, 2014 [facility] [place] [facility] [address] [id number] [place] [address]- 4861 Aug, [facility] [place] [facility] [address] [id number] [place] [address]- 0765 24 Aug, 2014 [facility] [place] [facility] [address] [id number] [place] [address]- 1148 18 Aug, 2014 [facility] [place] [facility] [address] [id number] [place] [address]- 6131 18 Aug, 2014 [facility] [place] [facility] [address] [id number] [place] [address]- 0672 18 Aug, 2014 [facility] [place] [facility] [address] [id number] [place] [address]- 7724 18 Aug, 2014 [facility] [place] [facility] [address] [id number] [place] [address]- 1899 17 Jul, 2014 [facility] [place] [facility] [address] [id number] [place] [address]- 8776 17 Jul, 2014 [facility] [place] [facility] [address] [id number] [place] [address]- 0241 13 Jul, 2014 [facility] [place] [facility] [address] [id number] [place] 4867 13 Jul, 2014 [facility] [place] [facility] [address] [id number] [place] [address]- 2719 Jul, [facility] [place] [facility] [address] [id number] [place] [address]- 7016 Jul, [facility] [place] [facility] [address] [id number] [place] [address]- 1356 Jun, [facility] [place] [facility] [address] [id number] [place] [address] 2540 Jun, [facility] [place] [facility] [address] [id number] [place] [address]- 2896 May, [facility] [place] [facility] [address] [id number] [place] [address]- 4573 May, [facility] [place] [facility] [address] [id number] [place] [address]- 6670 Apr, [facility] [place] [facility] [address] [id number] [place] [address]- 7634 Apr, [facility] [place] [facility] [address] [id number] [place] [address]- 7579 Apr, [facility] [place] [facility] [address] [id number] [place] [address]- 7015 Apr, [facility] [place] [facility] [address] [id number] [place] [address]- 7533 Mar, [facility] [place] [facility] [address] [id number], [place] [address]- 9535 Mar, [facility] [place] [facility] [address] [id number], [place] [address]- 7638 Mar, [facility] [place] [facility] [address] [id number] [place] [address]- 8002 Mar, [facility] [place] [facility] [address] [id number], [place] [address]- 5923 February, [facility] [place] [facility] [address] [id number] [place] [address]- 6681 February, [facility] [place] [facility] [address] [id number] [place] [address]- 7256 February, [facility] [address] [id number] [place] [address]- 8095 February, [facility] [place] [facility] [address] [id number] [place] 6699 February, [facility] [place] [facility] [address] [id number] [place] [address]- 9736 February, [facility] [place] [facility] [address] [id number] [place] [address]- 2197 Jan, [facility] [place] [facility] [address] [id number] [place] [address]- 9925 Jan, [facility] [place] [facility] [address] [id number] [place] [address]- 8481 Dec, [facility] [place] [facility] [address] [id number] [place] [address]- 2704 Dec, [facility] [place] [facility] [address] [id number] [place] [address]- 9166 Nov, [facility] [place] [facility] [address] [id number] [place] [address]- 0773 Nov, [facility] [place] [facility] [address] [id number] [place] [address]- 3801 Oct, [facility] [place] [facility] [address] [id number] [place] [address]- 5544 Oct, [facility] [place] [facility] [address] [id number] [place] [address]- 4102 Oct, [facility] [place] [facility] [address] [id number] [place] [address]- 6036 Oct, [facility] [place] [facility] [address] [id number] [place] [address]- 6366 Sep, [facility] [place] [facility] [address] [id number] [place] [address]- 4331 Sep, [facility] [address] [id number] [place] [address]- 7513 Sep, [facility] [place] [facility] [address] [id number] [place] [address]- 9236 Sep, [facility] [place] [facility] [address] [id number] [place] [address]- 2750 Sep, [facility] [place] [facility] [address] [id number] [place] [address]- 9895 Sep, [facility] [place] [facility] [address] [id number] [place] [address]- 1636 Sep, [facility] [place] [facility] [address] [id number] [place] [address]- 0085 Sep, [facility] [place] [facility] [address] [facility] [id number] [place] [address]- 1523 Aug, [facility] [place] [facility] [address] [id number], [place] [address]- 7724 Aug, [facility] [place] [facility] [address] [id number] [place] [address]- 8251 Aug, [facility] [place] [facility] [address] [facility] [id number], [place] [address]- 5638 Aug, [facility] [place] [facility] [address] [facility] [id number], [place] [address]- 9381 Aug, [facility] [place] [facility] [address] [id number], [place] [address]- 1164 Aug, [facility] [place] [facility] [address] [id number], [place] [address]- 4139 Aug, [facility] [place] [facility] [address] [id number], [place] [address]- 6980 Aug, [facility] [place] [facility] [address] [facility] [id number], [place] [address]- 7041 Aug, [facility] [place] [facility] [address] [id number], [place] [address]- 9890 Jul, [facility] [address] [id number] [place] [address]- 0676 Jun, [facility] [address] [id number] [place] [address]- 3236 May, [facility] [address] [id number] [place] [address]- 8056 May, [facility] [address] [id number] [place] [address]- 9705 May, [facility] [address] [id number] [place] [address]- 4482 Apr, [facility] [address] [id number] [place] [address]- 0366 Mar, [facility] [address] [id number] [place] [address]- 5426 February, [facility] [address] [id number] [place] [address]- 8307 Oct, [facility] [address] [id number] [place] [address]- 2517 Oct, [facility] [address] [id number] [place] [address]- 3768 Oct, [facility] [address] [id number] [place] [address]- 0481 Oct, [facility] [place] [facility] [address] [id number] [place] [address] 2543 Oct, [facility] [place] [facility] [address] [id number] [place] [address]- 6468 Oct, [facility] [place] [facility] [address] [id number] [place] [address]- 3776 Sep, [facility] [place] [facility] [address] [id number] [place] [address]- 6706 Sep, [facility] [place] [facility] [address] [id number] [place] [address]- 8739 Aug, [facility] [place] [facility] [address] [id number] [place] [address]- 0595 Aug, [facility] [place] [facility] [address] [id number] [place] [address]- 4750 Jul, [facility] [place] [facility] [address] [id number] [place] [address]- 0925 Jul, [facility] [place] [facility] [address] [id number] [place] [address]- 2475 Jul, [facility] [place] [facility] [address] [id number] [place] [address]- 1941 Jul, [facility] [place] [facility] [address] [id number] [place] [address]- 7722 Jul, [facility] [place] [facility] [address] [id number] [place] [address]- 5365 Jul, [facility] [place] [facility] [address] [id number] [place] [address]- 7544 Jul, [facility] [place] [facility] [address] [id number] [place] [address]- 7618 Jul, [facility] [place] [facility] [address] [facility] [id number] [place] [address]- 5436 Jun, [facility] [place] [facility] [address] [id number] [place] [address]- 3130 Jun, [facility] [place] [facility] [address] [id number] [place] [address]- 9891 May, [facility] [place] [facility] [address] [id number] [place] [address]- 8056 Apr, [facility] [place] [facility] [address] [id number] [place] [address]- 9216 Mar, [facility] [place] [facility] [address] [id number] [place] [address]- 8777 Mar, [facility] [place] [facility] [address] [id number] [place] [address]- 2634 Mar, [facility] [place] [facility] [address] [id number] [place] [address]- 5965 Mar, [facility] [place] [facility] [address] [id number] [place] [address]- 4739 Jan, [facility] [place] [facility] [address] [id number] [place] [address]- 2223 Nov, [facility] [place] [facility] [address] [id number] [place] [address]- 1752 Nov, [facility] [place] [facility] [address] [id number] [place] [address]- 2313 Nov, [facility] [place] [facility] [address] [id number] [place] [address]- 0917 Oct, [facility] [place] [facility] [address] [id number] [place] [address]- 5677 Sep, [facility] [place] [facility] [address] [id number] [place] [address]- 1428 Sep, [facility] [place] [facility] [address] [id number] [place] [address]- 5428 Aug, [facility] [place] [facility] [address] [id number] [place] [address]- 2430 Aug, [facility] [place] [facility] [address] [id number] [place] [address]- 9275 Aug, [facility] [place] [facility] [address] [id number] [place] [address]- 4591 Aug, [facility] [place] [facility] [address] [id number] [place] [address]- 4139 Jul, [facility] [place] [facility] [address] [id number] [place] [address]- 1973 May, [facility] [place] [facility] [address] [facility] [id number] [place] [address]- 9199 11 Jan, 2011 [facility] [address] [facility] [id number], [place] [address]- 2604 11 Nov, 2010 [facility] [address] [facility] [id number], [place] [address]- 6094 Apr, [address] [facility] [id number], [place] [address]- 5111 Dec, [facility] [address] [facility] [id number], [place] [address]- 9177 12 Nov, 2008 IMMUNIZATIONS No Known Immunizations SOCIAL HISTORY Never Assessed REASON FOR VISIT BH intake [facility] PLAN OF CARE Activity Details Follow Up 6 Weeks, prn Reason: VITAL SIGNS Height 67 in 2018-02-21 Weight 205.6 lbs 2018-02-21 Heart Rate 92 bpm 2018-02-21 Respiratory Rate 26 2018-02-21 BMI 32.20 kg/m2 2018-02-21 Blood pressure systolic 152 mmHg 2018-02-21 Blood pressure diastolic 100 mmHg 2018-02-21 MEDICATIONS Medication Instructions Dosage Frequency Start Date End Date Duration Status Xanax 0.5 MG Orally Twice a day 1 tablet as needed 12h Sep, Active Metoprolol Tartrate 25 MG Orally Twice a day 1 tablet with food 12h Active Albuterol Sulfate (2.5 MG/3ML) 0.083% Inhalation every 4 hours 3 ml as needed for cough or wheeze 4h 13 Jul, 2014 Active Abilify 5 MG Orally Once a day 0.5 tablet every day for one week then take full tablet daily 24h February, 30 day(s) Active Xeljanz 5 mg 1 Tablet by Oral route 2 times per day Dec, Active Zofran 4 MG Orally 3 times a day 1 tablet 8h May, 7 Active Cyclobenzaprine HCl 10 MG Orally 2 times a day 1 tablet as needed 12h Jul, 30 Active Advair Diskus 100-50 MCG/DOSE Inhalation Twice a day 1 puff 12h Jul, Active Tramadol HCl 50 mg Orally 4 times a day PRN PAIN 1-2 tablets Active Pantoprazole Sodium 40 mg Orally Once a day 1 tablet 24h Sep, 90 days Active Gabapentin 600 MG Orally Three times a day 1 capsule 8h Nov, 30 Active Ventolin HFA 108 (90 Base) MCG/ACT Inhalation every 6 hrs 2 puffs as needed 6h Aug, Active Venlafaxine HCl ER 150 MG Orally Once a day 2 tablet 24h Nov, Active Questran 4 GM/DOSE Orally Twice a day 1 scoop 12h Oct, 30 day(s ) Active Dicyclomine HCl 20 mg Orally 2 times a day and 1 additional daily prn 1 tablet February, Active Clopidogrel Bisulfate 75 MG Orally Once a day 1 tablet 24h 30 days Active RESULTS No Results PROCEDURES Procedure Date Ordered Result Body Site [facility] VISIT ESTABLISHED PATIENT February 21, 2018 INSTRUCTIONS MEDICATIONS ADMINISTERED No Known Medications MEDICAL (GENERAL) HISTORY Type Description Date Medical History Cardiovascular rggdrpem-DXN-Ttbuxacq, non-obstructive per HC ( 01/2011) Dr. Mendoza Medical History Stress test 03/07/13-Dr. Kelly Dietrich normal Medical History Hypertension Medical History Asthma Medical History Gastrointestinal Disorder--IBS, GERD, Hx of fatty liver Medical History Hernia 1979 Medical History Cervical dysplasia 02/16-Pap LGSIL/Nye-mild dysplasia Medical History Hyperlipidemia Medical History Rheumatoid [...] injury 07/10/15-07/11/2015 Hospitalization History Symptomatic Hypokalemia/Nause-[facility]ia [facility] 05/13/16 Hospitalization History Stroke 05/03/2017 Hospitalization History stroke 08/24/2017--09/01/2017
--- OUTSIDE RECORDS SUMMARY | 2018-06-12 15:53 | XMS REPORT ---
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 Name Role Phone LORI SNOWDEN Unavailable PROBLEMS Type Condition ICD9-CM Code VLW52-CD Code Onset Dates Condition Status SNOMED Code Problem ADHD (attention deficit hyperactivity disorder), combined type F90.2 Active 16630935 Problem Other nursing home (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 Active 708562474 Problem Generalized anxiety disorder F41.1 Active 75605055 Problem Cerebrovascular accident (CVA), unspecified mechanism I63.9 Active 602373110 Problem Asthma J45.909 Active 928704953 Problem Dysthymic disorder F34.1 Active 73016544 Problem Rheumatoid arthritis involving multiple sites, unspecified rheumatoid factor presence M06.9 Active 107079804 Problem Sleep apnea in adult G47.30 Active 40150695 Problem Seasonal allergies J30.2 Active 436899180 Problem Mild episode of recurrent major depressive disorder F33.0 Active 606991057 Problem Rheumatoid arthritis M06.9 Active 79946337 Problem Chronic pain syndrome G89.4 Active 666491274 Problem Hypertension I10 Active 69557103 Problem Anxiety F41.9 Active 62136455 Problem Gastroesophageal reflux disease with esophagitis K21.0 Active 043405167 Problem Panic attacks F41.0 Active 139633341 Problem Irritable bowel syndrome with diarrhea K58.0 Active 872967803 Problem Mixed hyperlipidemia E78.2 Active 461789424 Problem Hyperinsulinemia E16.1 Active 17424191 Problem Weight gain R63.5 Active 4815388 Problem Arteriosclerotic coronary artery disease I25.10 Active 13793747 Problem Chronic obstructive pulmonary disease, unspecified J44.9 Active [id number] Problem Obstructive sleep apnea G47.33 Active 50866583 Problem Neuropathy G62.9 Active 607723035 Problem Other insomnia G47.09 Active 764837596 ALLERGIES No Information ENCOUNTERS Encounter Location Date Diagnosis [facility] [address] [address] Jul, [facility] [id number] [place] [address] 14286- 1668 May, [facility] [address] [place] [address] 72398- 1236 May, Thrush B37.0 [facility] [id number] [place] [address] 92205- 5702 May, Mild episode of recurrent major depressive disorder F33.0 and Generalized anxiety disorder F41.1 [facility] [id number] [place] [address] 93786- 7779 May, Thrush B37.0 [facility] [id number] [place] [address] 39584- 5649 Apr, Cough R05 [facility] [id number] [place] [address] 93150- 1144 Mar, Mild episode of recurrent major depressive disorder F33.0 [facility] [address] [place] [address] 76576- 3720 Mar, Mild episode of recurrent major depressive disorder F33.0 and Generalized anxiety disorder F41.1 [facility] [address] [address] 4843 Mar, Seasonal allergies J30.2 [facility] [address] [place] [address] 95136- 1130 Mar, Seasonal allergies J30.2 [facility] [address] [place] [address] 00424- 8342 February, Generalized anxiety disorder F41.1 [facility] [address] [address] February, Cough R05 and Seasonal allergies J30.2 [facility] [id number] [place] [address] 12775- 7694 February, Generalized anxiety disorder F41.1 and Mild episode of recurrent major depressive disorder F33.0 [facility] [id number] [place] [address] 29101- 9370 February, 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 ; Anxiety F41.9 ; Panic attacks F41.0 and Irritable bowel syndrome with diarrhea K58.0 [facility] [id number] [place] [address] 14228- 1506 February, [facility] [id number] [place] [address] 46332- 1642 Jan, Mixed hyperlipidemia E78.2 [facility] [id number] [place] [address] 40719- 9599 Jan, [facility] [id number] [place] [address] 19434- 8252 Jan, [facility] [id number] [place] [address] 05199- 5195 Jan, [facility] [id number] [place] [address] 29939- 4119 Jan, [facility] [id number] [place] [address] 59872- 4718 Dec, [facility] [id number] [place] [address] 31593- 9332 Dec, [facility] [id number] [place] [address] 55442- 0296 Dec, [facility] [address] [place] [address] 55708- 7817 Nov, Dysthymic disorder F34.1 [facility] [address] [place] [address] 86490119- 6041 Oct, [facility] [id number] [place] [address] 67465- 5236 Oct, [place] [id number] [place] [address] 43939- 6149 Oct, [place] [address] 24590- 9539 Oct, Diarrhea, unspecified type R19.7 and Dysuria R30.[address] 59963- 6142 Oct, [place] [address] 28143- 1291 Sep, [address] 69656- 2667 Sep, [address] 58067- 1336 Sep, Anxiety F41.[address] 90744- 2537 Sep, Cerebrovascular accident (CVA), unspecified mechanism I63.9 ; Mixed hyperlipidemia E78.2 ; Gastroesophageal reflux disease with esophagitis K21.0 and Anxiety F41.[address] 56225- 1230 Sep, [place] [id number] [place] [address] 30864- 1000 Aug, Chronic obstructive pulmonary disease, unspecified J44.9 ; Asthma J45.909 ; Nausea R11.0 ; Dysthymic disorder F34.1 ; Cerebrovascular accident (CVA), unspecified mechanism I63.9 and Rheumatoid arthritis M06.[address] 68212- 4831 Aug, Nausea R11.0 ; Encounter for immunization Z23 ; Sleep apnea in adult G47.30 ; Rheumatoid arthritis involving multiple sites, unspecified rheumatoid factor presence M06.9 ; Generalized anxiety disorder F41.1 ; Dysthymic disorder F34.1 and Asthma J45.[id number] [place] [address] 99428- 7217 Jul, [place] [address] 85680- 3081 May, ADHD (attention deficit hyperactivity disorder), combined type F90.2 ; Generalized anxiety disorder F41.1 and Persistent depressive disorder F34.1 [place] [address] 24206- 5330 May, Cerebrovascular accident (CVA), unspecified mechanism I63.9 [place] [address] 64513- 0820 Apr, Mixed hyperlipidemia E78.2 and Cerebrovascular accident (CVA ), unspecified mechanism I63.9 [place] [address] 72729- 0396 Apr, Generalized anxiety disorder F41.1 [place] [address] 75916- 9733 Apr, Bronchitis J40 and Tobacco use Z72.0 [place] [address] 35506- 4029 Apr, Mixed hyperlipidemia E78.2 [place] [address] 23621- 3494 Apr, Other nursing home (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 [place] [id number] [place] [address] 77356- 3371 Apr, [place] [id number] [place] [address] 24352- 6302 Apr, Generalized anxiety disorder F41.1 [place] [address] 11612- 3501 Apr, Obstructive sleep apnea G47.33 and Hyperinsulinemia E16.1 [place] [address] 24692- 7351 Apr, ADHD (attention deficit hyperactivity disorder), combined type F90.2 ; Generalized anxiety disorder F41.1 and Persistent depressive disorder F34.1 [facility] [id number] [place] [address] 46606- 5176 Mar, [facility] [id number] [place] [address] 74611- 9108 Mar, Generalized anxiety disorder F41.1 [facility] [id number] [place] [address] 62639- 8305 Mar, Tarsal tunnel syndrome of both lower extremities G57.53 [facility] [id number] [place] [address] 88471- 0142 February, [facility] [id number] [place] [address] 04491- 5825 February, [facility] [id number] [place] [address] 86575- 8531 February, Asthma J45.909 [facility] [id number] [place] [address] 86026- 5279 February, Generalized anxiety disorder F41.1 [facility] [id number] [place] [address] 23756- 0750 February, Hypoxemia R09.02 ; Hyperglycemia R73.9 ; Rheumatoid arthritis M06.9 and Generalized anxiety disorder F41.1 [facility] [id number] [place] [address] 69837- 4644 February, [facility] [id number] [place] [address] 74708- 8935 Jan, Chronic obstructive pulmonary disease, unspecified J44.9 [facility] [id number] [place] [address] 59129- 8465 Jan, Chronic pain syndrome G89.4 [facility] [id number] [place] [address] 35539- 6999 Jan, Hypoxemia R09.02 [facility] [id number] [place] [address] 32493- 0976 Jan, [place] [address] 44498- 2430 Jan, Chronic obstructive pulmonary disease, unspecified J44.9 ; Hypoxemia R09.02 ; Other insomnia G47.09 and Left anterior shoulder pain M25.512 [place] [address] 81453- 1327 Jan, Numbness in feet R20.0 and Neuropathy G62.9 [place] [address] 23189- 2804 Jan, [place] [address] 77016- 5560 Dec, Acute pain of left shoulder M25.512 [place] [id number] [place] [address] 79743- 1746 Dec, Acute pain of left shoulder M25.512 [place] [id number] [place] [address] 67025- 1546 Dec, Generalized anxiety disorder F41.1 [place] [id number] [place] [address] 85133- 8568 Dec, Generalized anxiety disorder F41.1 [place] [id number] [place] [address] 16479- 2170 Nov, ADHD (attention deficit hyperactivity disorder), combined type F90.2 ; Generalized anxiety disorder F41.1 and Persistent depressive disorder F34.1 [place] [id number] [place] [address] 12586- 4130 Nov, Acute pain of left shoulder M25.512 [facility] [id number] [place] [address] 68018- 9312 Nov, ADHD (attention deficit hyperactivity disorder), combined type F90.2 ; Generalized anxiety disorder F41.1 and Persistent depressive disorder F34.1 [place] [address] [place] [address] 51462- 6797 Nov, Chronic pain syndrome G89.4 [facility] [id number] [place] [address] 05311- 8894 Nov, Chronic pain syndrome G89.4 [facility] [id number] [place] [address] 23745- 3756 Nov, Acute pain of left shoulder M25.512 [facility] [id number] [place] [address] 36870- 5571 Nov, Generalized anxiety disorder F41.1 [place] [id number] [place] [address] 29826- 6996 Nov, Acute pain of left shoulder M25.512 [place] [id number] [place] [address] 07621- 9953 Nov, ADHD (attention deficit hyperactivity disorder), combined type F90.2 ; Generalized anxiety disorder F41.1 and Persistent depressive disorder F34.1 [place] [id number] [place] [address] 71014- 7145 Nov, Acute pain of left shoulder M25.512 ; Generalized anxiety disorder F41.1 ; Chronic pain syndrome G89.4 ; Hyperinsulinemia E16.1 ; Pain of left foot M79.672 and Pain in right foot M79.671 [place] [id number] [place] [address] 00946- 2503 Oct, ADHD (attention deficit hyperactivity disorder), combined type F90.2 ; Generalized anxiety disorder F41.1 and Dysthymic disorder F34.1 [place] [id number] [place] [address] 68124- 3105 Sep, [place] [id number] [place] [address] 76866- 8200 Sep, [place] [id number] [place] [address] 06546- 7590 Sep, Routine gynecological examination V72.31 ; Cervical cancer screening Z12.4 ; Breast cancer screening Z12.39 ; Colon cancer screening Z12.11 ; Hypokalemia E87.6 ; Herpes simplex type 1 infection B00.9 and Abscess of right axilla L02.411 [place] [id number] [place] [address] 39487- 9268 Sep, [place] [address] 84840- 7685 Sep, ADHD (attention deficit hyperactivity disorder), combined type F90.2 ; Generalized anxiety disorder F41.1 and Dysthymic disorder F34.1 [place] [address] 23943- 9041 Aug, [place] [address] 45663- 1586 Aug, [place] [address] 69390- 5411 Aug, Generalized anxiety disorder F41.1 [place] [address] 24582- 8045 Aug, ADHD (attention deficit hyperactivity disorder), combined type F90.2 ; Generalized anxiety disorder F41.1 and Dysthymic disorder F34.1 [place] [id number] [place] [address] 37406- 6586 Jul, Chronic pain syndrome G89.4 ; Hypertension I10 ; Hypokalemia E87.6 ; Asthma J45.909 and Nausea R11.0 [place] [id number] [place] [address] 69030- 0085 Jul, [place] [address] 18841- 8067 Jul, Asthma J45.909 [place] [id number] [place] [address] 34696- 7553 Jul, ADHD (attention deficit hyperactivity disorder), combined type F90.2 ; Generalized anxiety disorder F41.1 and Dysthymic disorder F34.1 [place] [address] 34854- 5587 Jul, [place] [address] 05282- 0957 Jul, Hypertension I10 ; Arteriosclerotic coronary artery disease I25.10 ; Mixed hyperlipidemia E78.2 ; 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 and Hyperglycemia R73.9 [place] [address] 40254- 1992 16 Jun, 2016 Hypokalemia E87.6 and Hyperglycemia R73.9 [place] [address] 43960- 9996 14 Jun, 2016 [place] [address] 48524- 6153 Jun, Abnormal kidney function N28.9 [place] [address] 27811- 2083 Jun, [place] [address] 43786- 1054 Jun, ADHD (attention deficit hyperactivity disorder), combined type F90.2 ; Generalized anxiety disorder F41.1 and Dysthymic disorder F34.1 [place] [id number] [place] [address] 59199- 9710 Jun, Generalized anxiety disorder F41.1 and Dysthymic disorder F34.1 [place] [address] 26940- 2316 Jun, Hypokalemia E87.6 [place] [address] 18382- 5283 May, Hypokalemia E87.6 ; Vertigo R42 and Hyperinsulinemia E16.1 [place] [address] 91735- 3304 May, [place] [id number] [place] [address] 12786- 0618 May, Abnormal kidney function N28.9 ; Hyperinsulinemia E16.1 and Nausea R11.0 [place] [address] 08002- 3608 May, Hypokalemia E87.6 ; Nausea R11.0 ; Epigastric pain R10.13 ; Dehydration E86.0 ; Diaphoresis R61 and Right arm pain M79.601 [place] [address] 92950- 5363 May, [place] [address] 69096- 9802 May, Hypokalemia E87.6 [place] [address] 56409- 0117 May, Hypokalemia E87.6 [place] [id number] [place] [address] 49040- 4907 Apr, [place] [address] 51107- 6859 Apr, ADHD (attention deficit hyperactivity disorder), combined type F90.2 ; Generalized anxiety disorder F41.1 and Dysthymic disorder F34.1 [place] [address] 04963- 9426 Apr, Right arm pain M79.601 and Hyperinsulinemia E16.1 [place] [id number] [place] [address] 46415- 3737 Mar, [place] [address] 22834- 6181 Mar, [place] [id number] [place] [address] 76045- 8401 Mar, Hyperinsulinemia E16.1 ; Hyperlipidemia, unspecified hyperlipidemia type E78.5 ; Central venous catheter in place Z78.9 ; Generalized anxiety disorder F41.1 and Urinary tract infection, site not specified N39.0 [place] [id number] [place] [address] 63358- 8707 Mar, ADHD (attention deficit hyperactivity disorder), combined type F90.2 ; Generalized anxiety disorder F41.1 and Dysthymic disorder F34.1 [place] [address] 19929- 2438 February, ADHD (attention deficit hyperactivity disorder), combined type F90.2 ; Generalized anxiety disorder F41.1 and Dysthymic disorder F34.1 [place] [address] 73917- 6855 February, [place] [address] 60177- 0930 February, [place] [address] 20323- 8328 February, Hypertension I10 and Weight gain R63.5 [place] [id number] [place] [address] 44635- 1572 February, Major depressive disorder, recurrent, moderate F33.1 and Generalized anxiety disorder F41.1 [place] [id number] [place] [address] 88375- 9130 February, ADHD (attention deficit hyperactivity disorder), combined type F90.2 ; Generalized anxiety disorder F41.1 and Dysthymic disorder F34.1 [place] [id number] [place] [address] 61442- 2821 February, [place] [address] 90596- 9346 February, Asthma J45.909 ; Weight gain R63.5 ; Hypertension I10 ; Rheumatoid arthritis M06.9 and Chronic pain syndrome G89.4 [place] [address] 99820- 6642 Jan, ADHD (attention deficit hyperactivity disorder), combined type F90.2 ; Generalized anxiety disorder F41.1 and Dysthymic disorder F34.1 [facility] [id number] [place] [address] 915259- 3107 Dec, ADHD (attention deficit hyperactivity disorder), combined type F90.2 ; Generalized anxiety disorder F41.1 and Dysthymic disorder F34.1 [facility] [id number] [place] [address] 57586- 9526 Dec, [facility] [id number] [place] [address] 349737- 3376 Nov, [facility] [id number] [place] [address] 405680- 7116 Nov, [facility] [id number] [place] [address] 553245- 0266 Nov, [facility] [id number] [place] [address] 684669- 9902 Nov, [facility] [address] [place] [address] 18993- 6237 Oct, [facility] [address] [place] [address] 63487- 5972 Oct, [facility] [address]- 3256 Oct, [facility] [address] [address]- 2366 Sep, [facility] [address]- 3766 Sep, [facility] [id number] [place] [address] 22540- 8106 Sep, Agoraphobia with panic disorder F40.01 ; Attention-deficit hyperactivity disorder, combined type F90.2 and Dysthymic disorder F34.1 [facility] [id number] [place] [address] 83156- 3860 Aug, [facility] [id number] [place] [address] 73884- 5967 Aug, [facility] [id number] [place] [address] 31214- 5997 Aug, [facility] [id number] [place] [address] 33193- 1144 Aug, Dysthymic disorder F34.1 ; Generalized anxiety disorder F41.1 and ADHD (attention deficit hyperactivity disorder), combined type F90.2 [facility] [id number] [place] [address] 62140- 6863 Aug, ADHD (attention deficit hyperactivity disorder), combined type F90.2 ; Generalized anxiety disorder F41.1 and Dysthymic disorder F34.1 [facility] [id number] [place] [address] 73697- 9329 Jul, Urinary tract infection, site not specified N39.0 ; Hypotension, unspecified I95.9 and Breast cancer screening Z12.39 [facility] [id number] [place] [address] 92156- 4769 Jul, [facility] [id number] [place] [address] 65646- 7290 Jul, [facility] [address] [place] [address] 60802- 1667 Jul, Urinary tract infection, site not specified N39.0 ; Nausea R11.0 ; Gastroenteritis K52.9 ; Renal failure N19 and Other hypotension I95.89 [facility] [id number] [place] [address] 97056- 9104 Jul, [facility] [id number] [place] [address] 15977- 2159 Jul, [facility] [id number] [place] [address] 20638- 3899 Jul, [place] [address] [address]- 9008 Jun, [place] [id number] [place] [address] Jun, Major depression in partial remission 296.25 ; Generalized anxiety disorder 300.02 and ADHD, predominantly inattentive type 314.01 [id number] [place] [address] 73586- 8341 May, [place] [id number] [place] [address] 14185- 9510 Apr, Major depressive disorder, recurrent episode, severe, without mention of psychotic behavior 296.33 ; Agoraphobia with panic disorder 300.21 and Generalized anxiety disorder 300.02 [place] [id number] [place] [address] 74986- 3172 Apr, ADHD (attention deficit hyperactivity disorder), combined type 314.01 ; Generalized anxiety disorder 300.02 and Dysthymic disorder 300.4 [place] [id number] [place] [address] 26021- 4229 Apr, CAD (coronary artery disease) 414.00 ; HTN (hypertension) 401.9 and Tobacco use 305.1 [id number] [place] [address] 43376- [address]707 Apr, [id number] [place] [address] 07836- 4409 Mar, ADHD (attention deficit hyperactivity disorder), combined type 314.01 ; Generalized anxiety disorder 300.02 ; Dysthymic disorder 300.4 ; No condition on [place] V71.09 ; Rheumatoid arthritis 714.0 ; Incontinence 788.30 ; Irritable bowel syndrome 564.1 ; Osteoporosis 733.00 and Chronic pain 338.29 [id number] [address] Mar, Agoraphobia with panic disorder 300.21 and Major depressive disorder, recurrent episode, moderate 296.32 [id number] [address] Mar, [facility] [address]005[address] [address] February, [facility] [address]005[address] [address] February, Agoraphobia with panic disorder 300.21 and Major depressive disorder, recurrent episode, moderate 296.32 [facility] [address]005[address] [address] February, [facility] [address]005[address] [address] Jan, [facility] [address] [address] Jan, [facility] [address]005[address] [address] 98[address] Dec, [facility] [address]005[address] [address] Dec, [facility] [address] [address] Dec, [facility] [address] [address] Dec, [facility] [address] [address] Dec, [facility] [address] [address] Dec, [facility] [id number] [address] Nov, [facility] [address] [address] Nov, [facility] [address] [id number] [address] 1340 Nov, [facility] [place] [facility] [address] [id number] [address] Nov, 2014 [facility] [place] [facility] [address] [id number] [place] [address] Nov, 2014 [facility] [place] [facility] [address] [id number] [place] [address]- 7616 Nov, 2014 [facility] [place] [facility] [address] [id number] [place] [address]- 4798 Nov, 2014 [facility] [place] [facility] [address] [id number] [place] [address]- 0821 Nov, [facility] [place] [facility] [address] [id number] [place] [address]- 6[address] Oct, [facility] [place] [facility] [address] [id number] [place] [address]- 2011 Oct, [facility] [place] [facility] [address] [id number] [place] [address]- 7085 Oct, [facility] [place] [facility] [address] [id number] [place] [address]- 2569 Oct, [facility] [place] [facility] [address] [id number] [place] [address] 59[address] Oct, [facility] [place] [facility] [address] [id number] [place] [address] 7450 Oct, [facility] [place] [facility] [address] [id number] [place] [address]- 9469 Sep, [facility] [place] [facility] [address] [id number] [place] [address]- 9373 Sep, [facility] [place] [facility] [address] [id number] [place] [address]- 8542 Sep, [facility] [place] [facility] [address] [id number] [place] [address]- 2420 Sep, [facility] [place] [facility] [address] [id number] [place] [address] 9[address] Sep, [facility] [place] [facility] [address] [id number] [place] [address] Sep, [facility] [place] [facility] [address] [id number] [place] [address]- 1628 Sep, [facility] [place] [facility] [address] [facility] [id number] [place] [address]- 4760 Aug, [facility] [place] [facility] [address] [id number] [place] [address] Aug, [facility] [place] [facility] [address] [id number] [place] [address]- 7733 Aug, [facility] [place] [facility] [address] [id number] [place] [address]- 2951 Aug, [facility] [place] [facility] [address] [id number] [place] [address]- 1765 Aug, [facility] [place] [facility] [address] [id number] [place] [address] 5[address] Aug, [facility] [place] [facility] [address] [id number] [place] [address]- 9314 Jul, [facility] [place] [facility] [address] [id number] [place] [address] 29[address] Jul, [facility] [place] [facility] [address] [id number] [place] [address] 1387 Jul, [facility] [place] [facility] [address] [id number] [place] [address] 5435 Jul, [facility] [place] [facility] [address] [id number] [place] [address]- 2924 Jul, [facility] [place] [facility] [address] [facility] [id number] [place] [address] 27[address] Jul, [facility] [place] [facility] [address] [id number] [address] 4479 Jun, [facility] [place] [facility] [address] [id number] [place] [address]- 9456 Jun, [facility] [address] [id number] [place] [address]- 2253 May, [facility] [place] [facility] [address] [id number] [place] [address]- 5214 May, [facility] [place] [facility] [address] [id number] [place] [address]- 7107 Apr, [facility] [place] [facility] [address] [id number] [place] [address]- 1559 Apr, [facility] [place] [facility] [address] [id number] [place] [address]- 1852 Apr, [facility] [place] [facility] [address] [id number] [place] [address]- 9891 Apr, [facility] [address] [id number] [place] [address]- 6626 Mar, [facility] [place] [facility] [address] [id number] [place] [address]- 4100 Mar, [facility] [place] [facility] [address] [id number] [place] [address]- 1393 Mar, [facility] [address] [id number] [place] [address]- 5631 Mar, [facility] [place] [facility] [address] [id number] [place] [address]- 9867 February, [facility] [place] [facility] [address] [id number] [place] [address] 0[address] February, [facility] [place] [facility] [address] [id number] [place] [address]- 5497 February, [facility] [place] [facility] [address] [id number] [place] [address] February, [facility] [place] [facility] [address] [id number] [place] [address]- 4951 February, [facility] [place] [facility] [address] [id number] [place] [address]- 3970 February, [facility] [place] [facility] [address] [id number] [place] [address]- 6365 Jan, [facility] [place] [facility] [address] [id number] [place] [address]- 6726 Jan, [facility] [place] [facility] [address] [id number] [place] [address]- 0532 Dec, [facility] [place] [facility] [address] [id number] [place] [address]- 6372 Dec, [facility] [place] [facility] [address] [id number] [place] [address]- 4823 Nov, [facility] [place] [facility] [address] [id number] [place] [address]- 7923 Nov, [facility] [place] [facility] [address] [id number] [place] [address]- 3475 Oct, [facility] [place] [facility] [address] [id number] [place] [address]- 2435 Oct, [facility] [place] [facility] [address] [id number] [place] [address]- 5270 Oct, [facility] [place] [facility] [address] [id number] [place] [address]- 3146 Oct, [facility] [place] [facility] [address] [id number] [place] [address]- 2949 Sep, [facility] [place] [facility] [address] [id number] [place] [address]- 6573 Sep, [facility] [place] [facility] [address] [id number] [place] [address]- 2236 Sep, [facility] [place] [facility] [address] [id number] [place] [address]- 3624 Sep, [facility] [place] [facility] [address] [id number] [place] [address]- 8401 Sep, [facility] [address] [id number] [place] [address]- 3720 Sep, [facility] [place] [facility] [address] [facility] [id number] [place] [address] Sep, [facility] [place] [facility] [address] [facility] [id number] [place] [address]- 5145 Sep, [facility] [place] [facility] [address] [id number] [place] [address]- 5276 Aug, [facility] [place] [facility] [address] [facility] [id number] [place] [address]- 9178 Aug, [facility] [place] [facility] [address] [facility] [id number] [place] [address]- 7953 Aug, [facility] [id number] [address]- 2901 Aug, [facility] [place] [facility] [address] [facility] [id number] [place] [address]- 6648 Aug, [facility] [place] [facility] [address] [id number] [address]- 7552 Aug, [facility] [place] [facility] [address] [id number] [address]- 6665 Aug, [facility] [place] [facility] [address] [facility] [id number] [place] [address]- 1923 Aug, [facility] [place] [facility] [address] [facility] [id number] [place] [address]- 9884 Aug, [facility] [place] [facility] [address] [facility] [id number] [place] [address]- 3463 Jul, [facility] [place] [facility] [address] [facility] [id number] [place] [address]- 7731 Jun, [facility] [place] [facility] [address] [id number] [address]- 6552 May, [facility] [place] [facility] [address] [id number] [place] [address]- 2546 May, [facility] [place] [facility] [address] [id number] [place] [address] 2546 May, [facility] [place] [facility] [address] [id number] [place] [address]- 2546 Apr, [facility] [place] [facility] [address] [id number] [place] [address]- 2546 Mar, [facility] [place] [facility] [address] [id number] [place] [address] 2546 February, [facility] [place] [facility] [address] [id number] [place] [address]- 3116 Oct, [facility] [place] [facility] [address] [id number] [place] [address]- 2546 Oct, [facility] [place] [facility] [address] [id number] [place] [address]- 5226 Oct, [facility] [place] [facility] [address] [id number] [place] [address]- 9133 Oct, [facility] [place] [facility] [address] [id number] [place] [address]- 9786 Oct, [facility] [place] [facility] [address] [id number] [place] [address]- 2546 Oct, [facility] [place] [facility] [address] [id number] [place] [address]- 2546 Sep, [facility] [place] [facility] [address] [id number] [place] [address]- 2546 Sep, [facility] [place] [facility] [address] [id number] [place] [address]- 2546 Aug, [facility] [place] [facility] [address] [id number] [place] [address]- 2546 Aug, [facility] [place] [facility] [address] [id number] [place] [address]- 9410 Jul, [facility] [place] [facility] [address] [id number] [place] [address]- 9937 Jul, [facility] [place] [facility] [address] [id number] [place] [address]- 9362 Jul, [facility] [place] [facility] [address] [id number] [place] [address] Jul, [facility] [place] [facility] [address] [id number] [place] [address]- 8294 Jul, [facility] [place] [facility] [address] [id number] [place] [address]- 7117 Jul, [facility] [place] [facility] [address] [id number] [place] [address]- 3864 Jul, [facility] [place] [facility] [address] [id number] [place] [address]- 6355 Jul, [facility] [place] [facility] [address] [id number] [place] [address]- 1272 Jun, [facility] [place] [facility] [address] [id number] [place] [address]- 9719 Jun, [facility] [place] [facility] [address] [id number] [place] [address]- 6289 May, [facility] [place] [facility] [address] [id number] [place] [address]- 0455 Apr, [facility] [place] [facility] [address] [id number] [place] [address]- 5355 Mar, [facility] [place] [facility] [address] [id number] [place] [address]- 7727 Mar, [facility] [place] [facility] [address] [id number] [place] [address]- 7378 Mar, [facility] [place] [facility] [address] [facility] [id number] [place] [address]- 3004 Mar, [facility] [place] [facility] [address] [id number] [place] [address]- 2775 Jan, [facility] [address] [id number] [place] [address]- 6075 Nov, [facility] [place] [facility] [address] [id number] [place] [address] Nov, [facility] [address] [id number] [place] [address]- 8290 Nov, [facility] [place] [facility] [address] [id number] [place] [address]- 5226 Oct, [facility] [address] [id number] [place] [address] Sep, [facility] [address] [id number] [place] [address]- 8853 Sep, [facility] [address] [id number] [place] [address]- 4622 Aug, [facility] [address] [id number] [place] [address]- 7665 Aug, [facility] [address] [id number] [place] [address]- 2362 Aug, [facility] [address] [facility] [id number] [place] [address]- 6174 Aug, [facility] [place] [facility] [address] [id number] [place] [address]- 5879 Jul, [facility] [place] [facility] [address] [id number] [place] [address]- 7350 May, [facility] [place] [facility] [address] [id number] [place] [address]- 2891 Jan, [facility] [place] [facility] [address] [id number] [place] [address]- 0335 Nov, [facility] [place] [facility] [address] [id number] [place] [address]- 6443 Apr, [facility] [address] [facility] [id number] [place] [address]- 4833 Dec, [facility] [address] [facility] [id number] [place] [address]- 6303 Nov, IMMUNIZATIONS No Known Immunizations SOCIAL HISTORY Never Assessed REASON FOR VISIT Controlled Med Refill/PRN PLAN OF CARE VITAL SIGNS MEDICATIONS Medication Instructions Dosage Frequency Start Date End Date Duration Status Xanax 0.5 MG Orally Twice a day 1 tablet as needed 12h Sep, 28 days Active RESULTS No Results PROCEDURES No Known procedures INSTRUCTIONS MEDICATIONS ADMINISTERED No Known Medications MEDICAL (GENERAL) HISTORY Type Description Date Medical History Cardiovascular miszsrwb-UPM-Tfezpnqs, 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 Mendoza Medical History Stress test 03/07/13-Dr. 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
[2018-06-12] MEDS ORDERED: RT-ALBUTEROL SULF 2.5 MG/3 ML PRE-MIX VIAL INH STA ×2 (15:54→19:12)
--- OUTSIDE RECORDS SUMMARY | 2018-06-12 15:54 | XMS REPORT ---
Author Author LORI SNOWDEN Organization [facility] [place] Address [address] [place] [address] Care Team Providers Care Reconciliation Machine Operator Name Role Phone LORI SNOWDEN Unavailable PROBLEMS Type Condition ICD9-CM Code KCL14-VL Code Onset Dates Condition Status SNOMED Code Problem ADHD (attention deficit hyperactivity disorder), combined type F90.2 Active 00051302 Problem Other senior care (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 Active 211898895 Problem Generalized anxiety disorder F41.1 Active 91145133 Problem Cerebrovascular accident (CVA), unspecified mechanism I63.9 Active 591838811 Problem Asthma J45.909 Active 948410776 Problem Dysthymic disorder F34.1 Active 24950442 Problem Rheumatoid arthritis involving multiple sites, unspecified rheumatoid factor presence M06.9 Active 909201418 Problem Sleep apnea in adult G47.30 Active 11622826 Problem Seasonal allergies J30.2 Active 803240885 Problem Mild episode of recurrent major depressive disorder F33.0 Active 771673834 Problem Rheumatoid arthritis M06.9 Active 04839596 Problem Chronic pain syndrome G89.4 Active 603411159 Problem Hypertension I10 Active 19481336 Problem Anxiety F41.9 Active 28961202 Problem Gastroesophageal reflux disease with esophagitis K21.0 Active 978529566 Problem Panic attacks F41.0 Active 611880492 Problem Irritable bowel syndrome with diarrhea K58.0 Active 272140247 Problem Mixed hyperlipidemia E78.2 Active 069287367 Problem Hyperinsulinemia E16.1 Active 21886086 Problem Weight gain R63.5 Active 0711688 Problem Arteriosclerotic coronary artery disease I25.10 Active 27106073 Problem Chronic obstructive pulmonary disease, unspecified J44.9 Active [id number] Problem Obstructive sleep apnea G47.33 Active 10156105 Problem Neuropathy G62.9 Active 321563534 Problem Other insomnia G47.09 Active [id number] ALLERGIES No Information ENCOUNTERS Encounter Location Date Diagnosis [facility] [place] [id number] [place] [address] 42152- 8921 May, [facility] [place] [id number] [place] [address] 68156- 9058 May, [facility] [place] [id number] [place] [address] 47859- 3283 Apr, Cough R05 [facility] [place] [address] 21894- 2265 Mar, Mild episode of recurrent major depressive disorder F33.0 [facility] [place] [id number] [place] [address] 67031- 3080 Mar, Mild episode of recurrent major depressive disorder F33.0 and Generalized anxiety disorder F41.1 [place] [id number] [place] [address] 52799- 3280 Mar, Seasonal allergies J30.2 [facility] [place] [id number] [place] [address] 37017- 5924 Mar, Seasonal allergies J30.2 [facility] [place] [id number] [place] [address] 81540- 7157 February, Generalized anxiety disorder F41.1 [facility] [id number] [place] [address] 61598 -1336 February, Cough R05 and Seasonal allergies J30.2 [facility] [place] [id number] [place] [address] 34619- 2813 February, Generalized anxiety disorder F41.1 and Mild episode of recurrent major depressive disorder F33.0 [facility] [place] [id number] [place] [address] 95466- 0451 February, Other senior care (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 ; Anxiety F41.9 ; Panic attacks F41.0 and Irritable bowel syndrome with diarrhea K58.0 [facility] [place] [id number] [place] [address] 81728- 7567 February, [facility] [place] [address] [address] 9818 Jan, Mixed hyperlipidemia E78.2 [facility] [place] [address] [place] [address] 2356 Jan, [facility] [place] [id number] [place] [address]- 4918 Jan, [facility] [place] [id number] [place] [address] 76468- 4954 Jan, [facility] [place] [id number] [place] [address], [place] [address]- 8717 Jan, [facility] [place] [id number] [place] [address], [place] [address]- 2526 Dec, [facility] [place] [id number] [place] [address] 00433- 2908 Dec, [facility] [place] [id number] [place] [address] 16549- 4432 Dec, [facility] [place] [id number] [place] [address] 43406- 0336 Nov, Dysthymic disorder F34.1 [facility] [place] [address] [address]- 3315 Oct, [facility] [place] [address] [address]- 7005 Oct, [facility] [place] [address] [address]- 5331 Oct, [facility] [place] [id number] [place] [address] 70529- 6926 Oct, Diarrhea, unspecified type R19.7 and Dysuria R30.0 [facility] [place] [address] [address]- 9325 Oct, [facility] [place] [id number] [place] [address] 59971- 4084 Sep, [place] [id number] [place] [address] 86701- 9636 Sep, [place] [id number] [place] [address] 52041- 8240 Sep, Anxiety F41.9 [place] [address] 62164- 9118 Sep, Cerebrovascular accident (CVA), unspecified mechanism I63.9 ; Mixed hyperlipidemia E78.2 ; Gastroesophageal reflux disease with esophagitis K21.0 and Anxiety F41.9 [place] [address] 71096- 1810 Sep, [place] [id number] [place] [address] 02986- 9938 Aug, Chronic obstructive pulmonary disease, unspecified J44.9 ; Asthma J45.909 ; Nausea R11.0 ; Dysthymic disorder F34.1 ; Cerebrovascular accident (CVA), unspecified mechanism I63.9 and Rheumatoid arthritis M06.9 [place] [id number] [place] [address] 62402- 8568 Aug, Nausea R11.0 ; Encounter for immunization Z23 ; Sleep apnea in adult G47.30 ; Rheumatoid arthritis involving multiple sites, unspecified rheumatoid factor presence M06.9 ; Generalized anxiety disorder F41.1 ; Dysthymic disorder F34.1 and Asthma J45.909 [place] [id number] [place] [address] 60793- 8097 Jul, [place] [address] 77673- 5222 May, ADHD (attention deficit hyperactivity disorder), combined type F90.2 ; Generalized anxiety disorder F41.1 and Persistent depressive disorder F34.1 [place] [id number] [place] [address] 84127- 6687 May, Cerebrovascular accident (CVA), unspecified mechanism I63.9 [facility] [place] [id number] [place] [address] 51532- 9008 Apr, Mixed hyperlipidemia E78.2 and Cerebrovascular accident (CVA ), unspecified mechanism I63.9 [facility] [place] [id number] [place] [address] 26945- 7799 Apr, Generalized anxiety disorder F41.1 [place] [id number] [place] [address] 05288- 0671 Apr, Bronchitis J40 and Tobacco use Z72.0 [place] [address] 54106- 3021 Apr, Mixed hyperlipidemia E78.2 [place] [id number] [place] [address] 04734- 6293 Apr, Other senior care (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 [place] [address] 87548- 5079 Apr, [place] [address] 97910- 8129 Apr, Generalized anxiety disorder F41.1 [place] [id number] [place] [address] 38293- 4136 Apr, Obstructive sleep apnea G47.33 and Hyperinsulinemia E16.[address] 62305- 5936 Apr, ADHD (attention deficit hyperactivity disorder), combined type F90.2 ; Generalized anxiety disorder F41.1 and Persistent depressive disorder F34.1 [place] [id number] [place] [address] 99277- 0671 Mar, [place] [address] 90781- 7338 Mar, Generalized anxiety disorder F41.1 [place] [address] 47551- 9999 Mar, Tarsal tunnel syndrome of both lower extremities G57.53 [place] [id number] [place] [address] 28182- 8199 February, [place] [id number] [place] [address] 95498- 1438 February, [place] [id number] [place] [address] 91837- 7376 February, Asthma J45.909 [place] [address] 46869- 2620 February, Generalized anxiety disorder F41.1 [place] [address] 51700- 8905 February, Hypoxemia R09.02 ; Hyperglycemia R73.9 ; Rheumatoid arthritis M06.9 and Generalized anxiety disorder F41.1 [place] [address] 88333- 9455 February, [place] [id number] [place] [address] 41326- 7618 Jan, Chronic obstructive pulmonary disease, unspecified J44.9 [place] [address] 71159- 5650 Jan, Chronic pain syndrome G89.4 [place] [id number] [place] [address] 73676- 5024 Jan, Hypoxemia R09.02 [place] [id number] [place] [address] 54126- 9135 Jan, [place] [id number] [place] [address] 21626- 8792 Jan, Chronic obstructive pulmonary disease, unspecified J44.9 ; Hypoxemia R09.02 ; Other insomnia G47.09 and Left anterior shoulder pain M25.512 [place] [id number] [place] [address] 96473- 3419 Jan, Numbness in feet R20.0 and Neuropathy G62.9 [facility] [place] [address], [place] [address]- 2956 Jan, [facility] [place] [id number] [place] [address] 72103- 1936 Dec, Acute pain of left shoulder M25.512 [facility] [place] [id number] [place] [address] 14616- 0586 Dec, Acute pain of left shoulder M25.512 [facility] [place] [id number] [place] [address] 59719- 6872 Dec, Generalized anxiety disorder F41.1 [facility] [place] [id number] [place] [address] 67048- 9656 Dec, Generalized anxiety disorder F41.1 [facility] [place] [id number] [place] [address] 24285- 1671 Nov, ADHD (attention deficit hyperactivity disorder), combined type F90.2 ; Generalized anxiety disorder F41.1 and Persistent depressive disorder F34.1 [facility] [place] [id number] [place] [address] 95965- 0233 Nov, Acute pain of left shoulder M25.512 [facility] [place] [address] [address]- 6872 Nov, ADHD (attention deficit hyperactivity disorder), combined type F90.2 ; Generalized anxiety disorder F41.1 and Persistent depressive disorder F34.1 [facility] [place] [address], [place] [address]- 1695 Nov, Chronic pain syndrome G89.4 [facility] [place] [id number] [place] [address] 53808- 4185 Nov, Chronic pain syndrome G89.4 [facility] [place] [address], [place] [address]- 6538 08 Nov, 2016 Acute pain of left shoulder M25.512 [facility] [place] [id number] [place] [address] 69952- 6403 Nov, Generalized anxiety disorder F41.1 [place] [address] 65498- 1087 Nov, Acute pain of left shoulder M25.512 [place] [id number] [place] [address] 32701- 4299 Nov, ADHD (attention deficit hyperactivity disorder), combined type F90.2 ; Generalized anxiety disorder F41.1 and Persistent depressive disorder F34.1 [place] [address] 55675- 5815 Nov, Acute pain of left shoulder M25.512 ; Generalized anxiety disorder F41.1 ; Chronic pain syndrome G89.4 ; Hyperinsulinemia E16.1 ; Pain of left foot M79.672 and Pain in right foot M79.[address] 62344- 0466 Oct, ADHD (attention deficit hyperactivity disorder), combined type F90.2 ; Generalized anxiety disorder F41.1 and Dysthymic disorder F34.1 [place] [id number] [place] [address] 76859- 8445 Sep, [place] [id number] [place] [address] 98477- 1210 Sep, [address] 15307- 2953 Sep, Routine gynecological examination V72.31 ; Cervical cancer screening Z12.4 ; Breast cancer screening Z12.39 ; Colon cancer screening Z12.11 ; Hypokalemia E87.6 ; Herpes simplex type 1 infection B00.9 and Abscess of right axilla L02.411 [place] [id number] [place] [address] 69944- 1596 Sep, [place] [address] 09330- 0422 Sep, ADHD (attention deficit hyperactivity disorder), combined type F90.2 ; Generalized anxiety disorder F41.1 and Dysthymic disorder F34.1 [place] [id number] [place] [address] 78580- 7469 Aug, [place] [id number] [place] [address] 40196- 4193 Aug, [place] [address] 84421- 1943 Aug, Generalized anxiety disorder F41.1 [place] [id number] [place] [address] 13910- 4077 Aug, ADHD (attention deficit hyperactivity disorder), combined type F90.2 ; Generalized anxiety disorder F41.1 and Dysthymic disorder F34.1 [place] [id number] [place] [address] 45218- 5054 Jul, Chronic pain syndrome G89.4 ; Hypertension I10 ; Hypokalemia E87.6 ; Asthma J45.909 and Nausea R11.0 [place] [id number] [place] [address] 93062- 9418 Jul, [place] [id number] [place] [address] 51418- 8670 Jul, Asthma J45.909 [place] [id number] [place] [address] 43139- 8359 Jul, ADHD (attention deficit hyperactivity disorder), combined type F90.2 ; Generalized anxiety disorder F41.1 and Dysthymic disorder F34.1 [place] [id number] [place] [address] 22919- 1282 Jul, [place] [address] 21792- 5234 Jul, Hypertension I10 ; Arteriosclerotic coronary artery disease I25.10 ; Mixed hyperlipidemia E78.2 ; Other senior care (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 and Hyperglycemia R73.9 [place] [id number] [place] [address] 19290- 7580 16 Jun, 2016 Hypokalemia E87.6 and Hyperglycemia R73.9 [place] [address] 489873- 1762 14 Jun, 2016 [place] [address] 720186- 5488 13 Jun, 2016 Abnormal kidney function N28.9 [place] [address] 89124- 1444 Jun, [place] [address] 489877- 6047 Jun, ADHD (attention deficit hyperactivity disorder), combined type F90.2 ; Generalized anxiety disorder F41.1 and Dysthymic disorder F34.1 [place] [address] 07760- 5961 Jun, Generalized anxiety disorder F41.1 and Dysthymic disorder F34.1 [place] [address] 168226- 0741 Jun, Hypokalemia E87.6 [place] [address] 6[address]4575- 5457 May, Hypokalemia E87.6 ; Vertigo R42 and Hyperinsulinemia E16.1 [place] [address] 38301- 7505 May, [place] [address] 59232- 9958 May, Abnormal kidney function N28.9 ; Hyperinsulinemia E16.1 and Nausea R11.0 [place] [address] 97618- 1926 May, Hypokalemia E87.6 ; Nausea R11.0 ; Epigastric pain R10.13 ; Dehydration E86.0 ; Diaphoresis R61 and Right arm pain M79.601 [place] [id number] [place] [address] 63799- 6996 May, [place] [id number] [place] [address] 11883- 4603 May, Hypokalemia E87.6 [place] [id number] [place] [address] 63544- 2224 May, Hypokalemia E87.6 [place] [id number] [place] [address] 05133- 6528 Apr, [place] [address] 49389- 1074 Apr, ADHD (attention deficit hyperactivity disorder), combined type F90.2 ; Generalized anxiety disorder F41.1 and Dysthymic disorder F34.1 [place] [id number] [place] [address] 32008- 5700 Apr, Right arm pain M79.601 and Hyperinsulinemia E16.1 [place] [id number] [place] [address] 72683- 0122 Mar, [place] [id number] [place] [address] 80514- 3898 Mar, [place] [id number] [place] [address] 75141- 2149 Mar, Hyperinsulinemia E16.1 ; Hyperlipidemia, unspecified hyperlipidemia type E78.5 ; Central venous catheter in place Z78.9 ; Generalized anxiety disorder F41.1 and Urinary tract infection, site not specified N39.0 [place] [id number] [place] [address] 02809- 4985 Mar, ADHD (attention deficit hyperactivity disorder), combined type F90.2 ; Generalized anxiety disorder F41.1 and Dysthymic disorder F34.1 [place] [id number] [place] [address] 55322- 5314 February, ADHD (attention deficit hyperactivity disorder), combined type F90.2 ; Generalized anxiety disorder F41.1 and Dysthymic disorder F34.1 [place] [id number] [place] [address] 45527- 1440 February, [place] [id number] [place] [address] 33332- 4908 February, [place] [id number] [place] [address] 05425- 3680 February, Hypertension I10 and Weight gain R63.5 [place] [id number] [place] [address] 93264- 3147 February, Major depressive disorder, recurrent, moderate F33.1 and Generalized anxiety disorder F41.1 [place] [id number] [place] [address] 39195- 4989 February, ADHD (attention deficit hyperactivity disorder), combined type F90.2 ; Generalized anxiety disorder F41.1 and Dysthymic disorder F34.1 [place] [id number] [place] [address] 81252- 6885 February, [place] [id number] [place] [address] 40372- 3009 February, Asthma J45.909 ; Weight gain R63.5 ; Hypertension I10 ; Rheumatoid arthritis M06.9 and Chronic pain syndrome G89.4 [place] [id number] [place] [address] 42830- 3737 Jan, ADHD (attention deficit hyperactivity disorder), combined type F90.2 ; Generalized anxiety disorder F41.1 and Dysthymic disorder F34.1 [place] [id number] [place] [address] 57408- 9240 Dec, ADHD (attention deficit hyperactivity disorder), combined type F90.2 ; Generalized anxiety disorder F41.1 and Dysthymic disorder F34.1 [place] [id number] [place] [address] 13080- 5213 Dec, [facility] [place] [address], [place] [address]- 4808 Nov, [facility] [place] [address], [place] [address]- 9853 Nov, [facility] [place] [address], [place] [address]- 2409 Nov, [facility] [place] [id number] [place] [address] 84481- 8257 Nov, [facility] [place] [address], [place] [address]- 6404 Oct, [facility] [place] [id number] [place] [address] 21882- 5276 Oct, [facility] [place] [address], [place] [address]- 6849 Oct, [facility] [place] [address], [place] [address]- 7357 Sep, [facility], [place], [facility] [address], [place] [address] Sep, [facility], [place], [facility] [address] [address] Sep, Agoraphobia with panic disorder F40.01 ; Attention-deficit hyperactivity disorder, combined type F90.2 and Dysthymic disorder F34.1 [facility], [place], [facility] [address] [address] Aug, [facility], [place], [facility] [address], [place] [address] Aug, [facility], [place], [facility] [address], [place] [address] Aug, [facility], [place], [facility] [address] [address] Aug, Dysthymic disorder F34.1 ; Generalized anxiety disorder F41.1 and ADHD (attention deficit hyperactivity disorder), combined type F90.2 [facility], [place], [facility] [id number] [place] [phone] Aug, ADHD (attention deficit hyperactivity disorder), combined type F90.2 ; Generalized anxiety disorder F41.1 and Dysthymic disorder F34.1 [facility], [place], [facility] [address] [id number] [place] [address] Jul, Urinary tract infection, site not specified N39.0 ; Hypotension, unspecified I95.9 and Breast cancer screening Z12.39 [facility] [place] [id number] [place] [address] 46718- 5873 Jul, [facility] [place] [id number] [place] [address] 15688- 2707 Jul, [facility] [place] [id number] [place] [address] 50647- 9370 Jul, Urinary tract infection, site not specified N39.0 ; Nausea R11.0 ; Gastroenteritis K52.9 ; Renal failure N19 and Other hypotension I95.89 [facility] [place] [id number] [place] [address] 90849- 9101 Jul, [facility] [place] [id number] [place] [address] 24821- 1157 Jul, [facility] [place] [id number] [place] [address] 80527- 2792 Jul, [facility] [place] [id number] [place] [address] 22942- 8113 Jun, [facility] [place] [id number] [place] [address] 14808- 1416 Jun, Major depression in partial remission 296.25 ; Generalized anxiety disorder 300.02 and ADHD, predominantly inattentive type 314.01 [facility] [place] [id number] [place] [address] 50756- 1808 May, [facility] [place] [address] [place] [address]856 Apr, Major depressive disorder, recurrent episode, severe, without mention of psychotic behavior 296.33 ; Agoraphobia with panic disorder 300.21 and Generalized anxiety disorder 300.02 [address] [place] [id number] [place] [address] 58580- 0792 Apr, ADHD (attention deficit hyperactivity disorder), combined type 314.01 ; Generalized anxiety disorder 300.02 and Dysthymic disorder 300.4 [place] [id number] [place] [address] 51779- 5564 Apr, CAD (coronary artery disease) 414.00 ; HTN (hypertension) 401.9 and Tobacco use 305.1 [id number] [place] [address] 50930- 3324 Apr, [address] 06237- 5378 Mar, ADHD (attention deficit hyperactivity disorder), combined type 314.01 ; Generalized anxiety disorder 300.02 ; Dysthymic disorder 300.4 ; No condition on [place] V71.09 ; Rheumatoid arthritis 714.0 ; Incontinence 788.30 ; Irritable bowel syndrome 564.1 ; Osteoporosis 733.00 and Chronic pain 338.29 [place] [id number] [place] [address] 55945- 7439 Mar, Agoraphobia with panic disorder 300.21 and Major depressive disorder, recurrent episode, moderate 296.32 [place] [id number] [place] [address] 02378- 4722 Mar, [place] [id number] [place] [address] 71424- 2632 February, [address] [id number] [place] [address] 38063- 5295 February, Agoraphobia with panic disorder 300.21 and Major depressive disorder, recurrent episode, moderate 296.[address] 76146- 8746 February, [facility] [place] [facility] [address] [id number] [place] [address]- 1457 Jan, [facility] [place] [facility] [address] [id number] [place] [address]- 8344 Jan, [facility] [place] [facility] [address] [facility] [id number] [place] [address]- 7266 Dec, [facility] [place] [facility] [address] [id number] [place] [address]- 8077 Dec, [facility] [place] [facility] [address] [id number] [place] [address]- 5629 Dec, [facility] [place] [facility] [address] [facility] [id number] [place] [address]- 6965 Dec, [facility] [place] [facility] [address] [facility] [id number] [place] [address]- 7260 Dec, [facility] [place] [facility] [address] [facility] [id number], [place] [address]- 5002 Dec, [facility] [place] [facility] [address] [facility] [id number] [place] [address]- 6360 Nov, [facility] [place] [facility] [address] [facility] [id number] [place] [address]- 8725 Nov, [facility] [place] [facility] [address] [facility] [id number], [place] [address]- 3104 Nov, [facility] [place] [facility] [address] [facility] [id number], [place] [address]- 3485 Nov, [facility] [place] [facility] [address] [facility] [id number] [place] [address]- 9593 Nov, [facility] [place] [facility] [address] [facility] [id number] [place] [address]- 6237 Nov, [facility] [place] [facility] [address] [facility] [id number], [place] [address]- 2182 Nov, [facility] [place] [facility] [address] [id number] [place] [address]- 0548 Nov, [facility] [place] [facility] [address] [id number] [place] [address]- 1810 Oct, [facility] [place] [facility] [address] [id number] [place] [address]- 6303 Oct, [facility] [place] [facility] [address] [id number] [place] [address]- 8859 Oct, [facility] [place] [facility] [address] [id number] [place] [address]- 1270 Oct, [facility] [place] [facility] [address] [id number] [place] [address]- 1785 Oct, [facility] [place] [facility] [address] [id number] [place] [address]- 5854 Oct, [facility] [place] [facility] [address] [id number] [place] [address]- 9691 Sep, [facility] [place] [facility] [address] [id number] [place] [address]- 8181 Sep, [facility] [place] [facility] [address] [id number] [place] [address]- 1531 Sep, [facility] [place] [facility] [address] [id number] [place] [address]- 7769 Sep, [facility] [place] [facility] [address] [id number] [place] [address]- 0109 Sep, [facility] [place] [facility] [address] [id number] [place] [address]- 6624 Sep, [facility] [place] [facility] [address] [id number] [place] [address]- 6987 Sep, [facility] [place] [facility] [address] [id number] [place] [address]- 8709 Aug, [facility] [place] [facility] [address] [id number], [place] [address]- 2686 Aug, [facility] [place] [facility] [address] [id number] [place] [address]- 8793 Aug, [facility] [place] [facility] [address] [id number] [place] [address]- 9826 Aug, [facility] [place] [facility] [address] [id number] [place] [address]- 7324 Aug, [facility] [place] [facility] [address] [id number] [place] [address]- 3078 Aug, [facility] [place] [facility] [address] [id number] [place] [address]- 9984 Jul, [facility] [place] [facility] [address] [id number] [place] 4220 Jul, [facility] [place] [facility] [address] [id number] [place] [address]- 4651 Jul, [facility] [place] [facility] [address] [id number] [place] [address]- 8935 Jul, [facility] [place] [facility] [address] [id number] [place] 1575 Jul, [facility] [place] [facility] [address] [id number] [place] [address]- 7312 Jul, [facility] [place] [facility] [address] [id number], [place] [address]- 5742 Jun, [facility] [place] [facility] [address] [id number], [place] [address]- 5135 Jun, [facility] [place] [facility] [address] [id number] [place] [address]- 0157 May, [facility] [place] [facility] [address] [id number] [place] [address]- 4411 May, [facility] [place] [facility] [address] [id number] [place] [address]- 1163 Apr, [facility] [place] [facility] [address] [id number] [place] [address]- 5249 Apr, [facility] [address] [id number] [place] [address]- 5627 Apr, [facility] [place] [facility] [address] [id number] [place] [address]- 9396 Apr, [facility] [address] [id number] [place] [address]- 9552 Mar, [facility] [place] [facility] [address] [id number] [place] [address]- 9546 Mar, [facility] [place] [facility] [address] [id number] [place] [address]- 8720 Mar, [facility] [place] [facility] [address] [id number] [place] [address]- 7339 Mar, [facility] [place] [facility] [address] [id number] [place] [address]- 8915 February, [facility] [address] [id number] [place] [address]- 3522 February, [facility] [place] [facility] [address] [id number] [place] [address]- 8797 February, [facility] [address] [id number] [place] [address]- 4536 February, [facility] [place] [facility] [address] [id number] [place] [address]- 8562 February, [facility] [place] [facility] [address] [id number] [place] [address]- 4049 February, [facility] [place] [facility] [address] [id number] [place] [address]- 9758 Jan, [facility] [place] [facility] [address] [id number] [place] [address]- 5298 Jan, [facility] [place] [facility] [address] [id number] [place] [address]- 5325 Dec, [facility] [address] [id number] [place] [address]- 5518 Dec, [facility] [place] [facility] [address] [id number] [place] [address]- 0786 Nov, [facility] [place] [facility] [address] [id number] [place] [address]- 2896 Nov, [facility] [place] [facility] [address] [id number] [place] [address]- 0881 Oct, [facility] [place] [facility] [address] [id number] [place] [address]- 8216 Oct, [facility] [place] [facility] [address] [id number] [place] [address]- 9371 Oct, [facility] [place] [facility] [address] [id number] [place] [address]- 6324 Oct, [facility] [place] [facility] [address] [id number] [place] [address]- 2666 Sep, [facility] [place] [facility] [address] [id number] [place] [address]- 7672 Sep, [facility] [place] [facility] [address] [id number] [place] [address]- 1091 Sep, [facility] [place] [facility] [address] [id number], [place] [address]- 7191 Sep, [facility] [place] [facility] [address] [id number], [place] [address]- 6175 Sep, [facility] [place] [facility] [address] [id number] [place] [address]- 7286 Sep, [facility] [place] [facility] [address] [id number] [place] [address]- 3706 Sep, [facility] [place] [facility] [address] [id number] [place] [address]- 9732 Sep, [facility] [place] [facility] [address] [id number] [place] [address]- 4797 Aug, [facility] [address] [id number] [place] [address]- 9026 Aug, [facility] [place] [facility] [address] [id number] [place] [address]- 3990 Aug, [facility] [place] [facility] [address] [id number] [place] [address]- 6542 Aug, [facility] [place] [facility] [address] [id number] [place] [address]- 9809 Aug, [facility] [place] [facility] [address] [id number] [place] [address]- 2900 Aug, [facility] [place] [facility] [address] [id number] [place] [address]- 3307 Aug, [facility] [place] [facility] [address] [id number] [place] [address]- 8658 Aug, [facility] [place] [facility] [address] [id number] [place] [address]- 2400 Aug, [facility] [place] [facility] [address] [id number] [place] [address]- 8734 Jul, [facility] [place] [facility] [address] [id number] [place] [address]- 8921 Jun, [facility] [place] [facility] [address] [id number] [place] [address]- 1746 May, [facility] [place] [facility] [address] [id number], [place] [address]- 9388 May, [facility] [place] [facility] [address] [id number] [place] [address]- 7270 May, [facility] [place] [facility] [address] [id number] [place] [address]- 2842 Apr, [facility] [place] [facility] [address] [id number], [place] [address]- 0041 Mar, [facility] [place] [facility] [address] [id number] [place] [address]- 9472 February, [facility] [place] [facility] [address] [id number] [place] [address]- 7830 Oct, [facility] [place] [facility] [address] [id number] [place] [address]- 2546 Oct, [facility] [place] [facility] [address] [id number] [place] [address]- 4958 Oct, [facility] [place] [facility] [address] [id number] [place] [address]- 2027 Oct, [facility] [place] [facility] [address] [id number] [place] [address]- 7342 Oct, [facility] [place] [facility] [address] [id number] [place] [address]- 9893 Oct, [facility] [place] [facility] [address] [id number] [place] [address]- 8448 Sep, [facility] [place] [facility] [address] [id number] [place] [address]- 7491 Sep, [facility] [place] [facility] [address] [id number] [place] [address]- 5296 Aug, [facility] [place] [facility] [address] [id number] [place] [address]- 4402 Aug, [facility] [place] [facility] [address] [id number] [place] [address]- 8525 Jul, [facility] [place] [facility] [address] [id number] [place] [address]- 2393 Jul, [facility] [place] [facility] [address] [id number] [place] [address]- 5845 Jul, [facility] [place] [facility] [address] [id number] [place] [address]- 7147 Jul, [facility] [place] [facility] [address] [id number] [place] [address]- 2885 Jul, [facility] [place] [facility] [address] [id number] [place] [address]- 7155 Jul, [facility] [place] [facility] [address] [id number] [place] [address]- 5189 Jul, [facility] [place] [facility] [address] [id number] [place] [address]- 2880 Jul, [facility] [place] [facility] [address] [id number] [place] [address]- 6672 Jun, [facility] [place] [facility] [address] [id number] [place] 4209 Jun, [facility] [place] [facility] [address] [id number] [place] [address]- 7231 May, [facility] [place] [facility] [address] [id number] [place] [address]- 0071 Apr, [facility] [place] [facility] [address] [id number] [place] [address]- 0187 Mar, [facility] [place] [facility] [address] [id number] [place] [address]- 4945 Mar, [facility] [place] [facility] [address] [id number] [place] [address]- 9829 Mar, [facility] [place] [facility] [address] [id number], [place] [address]- 7670 Mar, [facility] [place] [facility] [address] [id number], [place] [address]- 3178 Jan, [facility] [place] [facility] [address] [id number] [place] [address]- 8180 Nov, [facility] [place] [facility] [address] [id number], [place] [address]- 0328 Nov, [facility] [place] [facility] [address] [id number], [place] [address]- 7626 Nov, [facility] [place] [facility] [address] [address]- 8936 Oct, [facility] [place] [address], [place] [address]- 2268 Sep, [facility] [place] [address], [place] [address]- 6776 Sep, [facility] [place] [address], [place] [address]- 3088 Aug, [facility] [place] [address], [place] [address]- 2389 Aug, [facility] [place] [id number] [place] [address] 94181- 5896 Aug, [facility] [place] [address], [place] [address]- 8556 Aug, [facility] [place] [id number] [place] [address] 30285- 3942 Jul, [facility] [place] [address], [place] [address]- 0486 May, [facility] [place] [address], [place] [address]- 6855 Jan, [facility] [place] [address], [place] [address]- 4828 Nov, [facility] [place] [address], [place] [address]- 2813 Apr, [facility] [place] [address], [place] [address]- 2880 Dec, [facility] [place] [address], [place] [address]- 6406 Nov, IMMUNIZATIONS No Known Immunizations SOCIAL HISTORY Never Assessed REASON FOR VISIT Enrolled in [facility] PLAN OF CARE VITAL SIGNS MEDICATIONS Unknown Medications RESULTS No Results PROCEDURES No Known procedures INSTRUCTIONS MEDICATIONS ADMINISTERED No Known Medications MEDICAL (GENERAL) HISTORY Type Description Date Medical History Cardiovascular zfoocefy-AOV-Swblmqjh, 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 Mendoza Medical History Stress test 03/07/13-Dr. Kelly Dietrich normal Medical History Hypertension Medical History Asthma Medical History Gastrointestinal Disorder--IBS, GERD, Hx of fatty liver Medical History Hernia 1979 Medical History Cervical dysplasia 02/16-Pap LGSIL/[place]-mild dysplasia Medical History Hyperlipidemia Medical History Rheumatoid arthritis ([place]) in remission 11/27/14 pain she has [...] Kidney injury 07/10/15-07/11/2015 Hospitalization History Symptomatic Hypokalemia/Nause-Via [facility] 05/13/16 Hospitalization History Stroke 05/03/2017 Hospitalization History stroke 08/24/2017--09/01/2017
--- OUTSIDE RECORDS SUMMARY | 2018-06-12 15:55 | XMS REPORT ---
Author Author LORI SNOWDEN Organization [facility] Address [address] [place] [address] Care Team Providers Care Veterans Contact Representative Name Role Phone LORI SNOWDEN Unavailable PROBLEMS Type Condition ICD9-CM Code [id number] Code Onset Dates Condition Status SNOMED Code Problem ADHD (attention deficit hyperactivity disorder), combined type F90.2 Active 53590716 Problem Other group home (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 Active 518617468 Problem Generalized anxiety disorder F41.1 Active 78459930 Problem Cerebrovascular accident (CVA), unspecified mechanism I63.9 Active 262862579 Problem Asthma J45.909 Active 520992821 Problem Dysthymic disorder F34.1 Active 84141563 Problem Rheumatoid arthritis involving multiple sites, unspecified rheumatoid factor presence M06.9 Active 872212922 Problem Sleep apnea in adult G47.30 Active 08478100 Problem Seasonal allergies J30.2 Active 898902683 Problem Mild episode of recurrent major depressive disorder F33.0 Active 043160708 Problem Rheumatoid arthritis M06.9 Active 45593926 Problem Chronic pain syndrome G89.4 Active 648430160 Problem Hypertension I10 Active 39429364 Problem Anxiety F41.9 Active 60713453 Problem Gastroesophageal reflux disease with esophagitis K21.0 Active 026635078 Problem Panic attacks F41.0 Active 394242066 Problem Irritable bowel syndrome with diarrhea K58.0 Active 628837675 Problem Mixed hyperlipidemia E78.2 Active 622517292 Problem Hyperinsulinemia E16.1 Active 06534874 Problem Weight gain R63.5 Active 9795024 Problem Arteriosclerotic coronary artery disease I25.10 Active 46874078 Problem Chronic obstructive pulmonary disease, unspecified J44.9 Active [id number] Problem Obstructive sleep apnea G47.33 Active 75602976 Problem Neuropathy G62.9 Active 803863959 Problem Other insomnia G47.09 Active 306678378 ALLERGIES No Information ENCOUNTERS Encounter Location Date Diagnosis [facility] [id number] [place] [address] 02898- 4188 May, [facility] [id number] [place] [address] 88807- 0077 Apr, Cough R05 [facility] [id number] [place] [address] 19494- 9333 Mar, Mild episode of recurrent major depressive disorder F33.0 [facility] [id number] [place] [address] 62713- 1743 Mar, Mild episode of recurrent major depressive disorder F33.0 and Generalized anxiety disorder F41.1 [facility] [id number] [place] [address] 29907- 7726 Mar, Seasonal allergies J30.2 [facility] [id number] [place] [address] 29783- 9458 Mar, Seasonal allergies J30.2 [facility] [id number] [place] [address] 82537- 9603 February, Generalized anxiety disorder F41.1 [facility] [id number] [place] [address] 58575 -3358 February, Cough R05 and Seasonal allergies J30.2 [facility] [address] [address] 0874 February, Generalized anxiety disorder F41.1 and Mild episode of recurrent major depressive disorder F33.0 [facility] [id number] [place] [address] 33293- 4862 February, 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 ; Anxiety F41.9 ; Panic attacks F41.0 and Irritable bowel syndrome with diarrhea K58.0 [facility] [address] [address] 4687 February, [facility] [id number] [place] [address] 49120- 2236 Jan, Mixed hyperlipidemia E78.2 [facility] [id number] [place] [address] 3222 Jan, [facility] [id number] [place] [address] 93872- 3507 Jan, [facility] [id number] [place] [address] 06082- 5694 Jan, [facility] [id number] [place] [address] 55265- 1352 Jan, [facility] [id number] [place] [address], [place] [address]- 5034 Dec, [facility] [id number] [place] [address] 14651- 6829 Dec, [facility] [id number] [place] [address] 52256- 1485 Dec, [facility] [id number] [place] [address] 62374- 2141 Nov, Dysthymic disorder F34.1 [facility] [id number] [place] [address] 86991- 7244 Oct, [facility] [address], [place] [address]- 6670 Oct, [facility] [address] [place] [address] 79681- 5245 Oct, [facility] [address] [address]- 7636 Oct, Diarrhea, unspecified type R19.7 and Dysuria R30.0 [facility] [address] 9230 Oct, [facility] [address] [address]- 6187 Sep, [facility] [id number] [place] [address] 77571- 8912 Sep, [place] [id number] [place] [address] 67685- 4562 Sep, Anxiety F41.9 [facility] [facility] [id number] [place] [address] 58392- 6085 Sep, Cerebrovascular accident (CVA), unspecified mechanism I63.9 ; Mixed hyperlipidemia E78.2 ; Gastroesophageal reflux disease with esophagitis K21.0 and Anxiety F41.9 [place] [id number] [place] [address] 28977- 4264 Sep, [place] [address] 43203- 3668 Aug, Chronic obstructive pulmonary disease, unspecified J44.9 ; Asthma J45.909 ; Nausea R11.0 ; Dysthymic disorder F34.1 ; Cerebrovascular accident (CVA), unspecified mechanism I63.9 and Rheumatoid arthritis M06.9 [facility] [facility] [id number] [place] [address] 64578- 7362 Aug, Nausea R11.0 ; Encounter for immunization Z23 ; Sleep apnea in adult G47.30 ; Rheumatoid arthritis involving multiple sites, unspecified rheumatoid factor presence M06.9 ; Generalized anxiety disorder F41.1 ; Dysthymic disorder F34.1 and Asthma J45.909 [facility] [id number] [place] [address] 98273- 3584 Jul, [facility] [id number] [place] [address] 14914- 2470 May, ADHD (attention deficit hyperactivity disorder), combined type F90.2 ; Generalized anxiety disorder F41.1 and Persistent depressive disorder F34.1 [facility] [facility] [id number] [place] [address] 13586- 9069 May, Cerebrovascular accident (CVA), unspecified mechanism I63.9 [facility] [facility] [id number] [place] [address] 08500- 1677 Apr, Mixed hyperlipidemia E78.2 and Cerebrovascular accident (CVA ), unspecified mechanism I63.9 [place] [address] 16189- 0324 Apr, Generalized anxiety disorder F41.1 [facility] [facility] [id number] [place] [address] 21996- 9806 Apr, Bronchitis J40 and Tobacco use Z72.0 [place] [address] 46351- 1182 Apr, Mixed hyperlipidemia E78.2 [facility] [facility] [address] 88567- 6550 Apr, Other group home (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 [place] [address] 39416- 1396 Apr, [place] [address] 27624- 9247 Apr, Generalized anxiety disorder F41.1 [place] [facility] [address] 21604- 2044 Apr, Obstructive sleep apnea G47.33 and Hyperinsulinemia E16.1 [place] [id number] [place] [address] 33352- 1596 Apr, ADHD (attention deficit hyperactivity disorder), combined type F90.2 ; Generalized anxiety disorder F41.1 and Persistent depressive disorder F34.1 [place] [id number] [place] [address] 84090- 3920 Mar, [place] [address] 54444- 0058 Mar, Generalized anxiety disorder F41.1 [facility] [id number] [place] [address] 09210- 9545 Mar, Tarsal tunnel syndrome of both lower extremities G57.53 [place] [address] 30236- 6145 February, [facility] [facility] [id number] [place] [address] 25516- 8182 February, [place] [id number] [place] [address] 12678- 0585 February, Asthma J45.909 [place] [id number] [place] [address] 41974- 0737 February, Generalized anxiety disorder F41.1 [place] [address] 81209- 1273 February, Hypoxemia R09.02 ; Hyperglycemia R73.9 ; Rheumatoid arthritis M06.9 and Generalized anxiety disorder F41.1 [facility] [id number] [place] [address] 14401- 6263 February, [place] [address] 41606- 9703 Jan, Chronic obstructive pulmonary disease, unspecified J44.9 [facility] [id number] [place] [address] 81624- 0857 Jan, Chronic pain syndrome G89.4 [facility] [id number] [place] [address] 74203- 7453 Jan, Hypoxemia R09.02 [facility] [id number] [place] [address] 40676- 1611 Jan, [place] [id number] [place] [address] 52053- 2175 Jan, Chronic obstructive pulmonary disease, unspecified J44.9 ; Hypoxemia R09.02 ; Other insomnia G47.09 and Left anterior shoulder pain M25.512 [place] [id number] [place] [address] 79679- 5495 07 Jan, 2017 Numbness in feet R20.0 and Neuropathy G62.9 [place] [address] 41053- 0525 Jan, [facility] [id number] [place] [address] 89047- 6952 Dec, Acute pain of left shoulder M25.512 [facility] [id number] [place] [address] 565770- 9566 Dec, Acute pain of left shoulder M25.512 [facility] [id number] [place] [address] 56945- 1372 Dec, Generalized anxiety disorder F41.1 [facility] [address] [place] [address] 37704- 6360 Dec, Generalized anxiety disorder F41.1 [facility] [id number] [place] [address] 42473- 4905 Nov, ADHD (attention deficit hyperactivity disorder), combined type F90.2 ; Generalized anxiety disorder F41.1 and Persistent depressive disorder F34.1 [facility] [address] [place] [address] 84885- 6454 Nov, Acute pain of left shoulder M25.512 [facility] [address] [place] [address] 33721- 4572 Nov, ADHD (attention deficit hyperactivity disorder), combined type F90.2 ; Generalized anxiety disorder F41.1 and Persistent depressive disorder F34.1 [facility] [address] [place] [address] 72426- 4824 Nov, Chronic pain syndrome G89.4 [facility] [address] [place] [address] 76742- 2529 Nov, Chronic pain syndrome G89.4 [facility] [id number] [place] [address] 96983- 0417 Nov, Acute pain of left shoulder M25.512 [facility] [address] [place] [address] 46531- 4700 Nov, Generalized anxiety disorder F41.1 [place] [address] [place] [address] 56016- 6327 Nov, Acute pain of left shoulder M25.512 [place] [id number] [place] [address] 91435- 3716 Nov, ADHD (attention deficit hyperactivity disorder), combined type F90.2 ; Generalized anxiety disorder F41.1 and Persistent depressive disorder F34.1 [place] [address] 75769- 7741 Nov, Acute pain of left shoulder M25.512 ; Generalized anxiety disorder F41.1 ; Chronic pain syndrome G89.4 ; Hyperinsulinemia E16.1 ; Pain of left foot M79.672 and Pain in right foot M79.671 [place] [id number] [place] [address] 94653- 6447 Oct, ADHD (attention deficit hyperactivity disorder), combined type F90.2 ; Generalized anxiety disorder F41.1 and Dysthymic disorder F34.1 [place] [id number] [place] [address] 77904- 6931 Sep, [place] [id number] [place] [address] 67513- 5110 Sep, [place] [id number] [place] [address] 15582- 4371 Sep, Routine gynecological examination V72.31 ; Cervical cancer screening Z12.4 ; Breast cancer screening Z12.39 ; Colon cancer screening Z12.11 ; Hypokalemia E87.6 ; Herpes simplex type 1 infection B00.9 and Abscess of right axilla L02.411 [place] [address] 36406- 3914 Sep, [place] [id number] [place] [address] 68233- 9018 Sep, ADHD (attention deficit hyperactivity disorder), combined type F90.2 ; Generalized anxiety disorder F41.1 and Dysthymic disorder F34.1 [place] [id number] [place] [address] 76050- 2226 Aug, [place] [address] 72487- 7331 Aug, [place] [id number] [place] [address] 58794- 5967 Aug, Generalized anxiety disorder F41.1 [place] [id number] [place] [address] 94466- 2813 Aug, ADHD (attention deficit hyperactivity disorder), combined type F90.2 ; Generalized anxiety disorder F41.1 and Dysthymic disorder F34.1 [place] [id number] [place] [address] 93076- 2152 Jul, Chronic pain syndrome G89.4 ; Hypertension I10 ; Hypokalemia E87.6 ; Asthma J45.909 and Nausea R11.0 [place] [id number] [place] [address] 58219- 5739 Jul, [place] [id number] [place] [address] 71475- 6541 Jul, Asthma J45.909 [place] [id number] [place] [address] 46465- 1590 Jul, ADHD (attention deficit hyperactivity disorder), combined type F90.2 ; Generalized anxiety disorder F41.1 and Dysthymic disorder F34.1 [place] [id number] [place] [address] 31641- 0085 Jul, [place] [id number] [place] [address] 93438- 5188 Jul, Hypertension I10 ; Arteriosclerotic coronary artery disease I25.10 ; Mixed hyperlipidemia E78.2 ; 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 and Hyperglycemia R73.9 [place] [id number] [place] [address] 24630- 9659 Jun, Hypokalemia E87.6 and Hyperglycemia R73.9 [place] [address] 00370- 8847 14 Jun, 2016 [place] [address] [place] [address]- 9260 Jun, Abnormal kidney function N28.9 [place] [address] 35565- 7744 Jun, [place] [address] 77333- 7671 Jun, ADHD (attention deficit hyperactivity disorder), combined type F90.2 ; Generalized anxiety disorder F41.1 and Dysthymic disorder F34.1 [place] [address] 63233- 3669 Jun, Generalized anxiety disorder F41.1 and Dysthymic disorder F34.1 [place] [address] 58186- 3031 Jun, Hypokalemia E87.6 [place] [address] [place] [address]- 4426 May, Hypokalemia E87.6 ; Vertigo R42 and Hyperinsulinemia E16.1 [place] [address] 98540- 0525 May, [place] [address] [place] [address]- 1717 May, Abnormal kidney function N28.9 ; Hyperinsulinemia E16.1 and Nausea R11.[address] 62225- 8118 May, Hypokalemia E87.6 ; Nausea R11.0 ; Epigastric pain R10.13 ; Dehydration E86.0 ; Diaphoresis R61 and Right arm pain M79.601 [place] [address] [address]- 4258 May, [place] [address] [place] [address] 86479- 2733 May, Hypokalemia E87.6 [place] [id number] [place] [address] 93763- 6459 May, Hypokalemia E87.6 [place] [id number] [place] [address] 51800- 2187 Apr, [place] [id number] [place] [address] 68267- 8991 Apr, ADHD (attention deficit hyperactivity disorder), combined type F90.2 ; Generalized anxiety disorder F41.1 and Dysthymic disorder F34.1 [place] [id number] [place] [address] 26312- 0502 Apr, Right arm pain M79.601 and Hyperinsulinemia E16.1 [place] [id number] [place] [address] 99593- 9917 Mar, [place] [id number] [place] [address] 41703- 0538 Mar, [place] [id number] [place] [address] 43287- 4422 Mar, Hyperinsulinemia E16.1 ; Hyperlipidemia, unspecified hyperlipidemia type E78.5 ; Central venous catheter in place Z78.9 ; Generalized anxiety disorder F41.1 and Urinary tract infection, site not specified N39.0 [place] [id number] [place] [address] 15928- 3303 Mar, ADHD (attention deficit hyperactivity disorder), combined type F90.2 ; Generalized anxiety disorder F41.1 and Dysthymic disorder F34.1 [place] [id number] [place] [address] 10812- 9649 February, ADHD (attention deficit hyperactivity disorder), combined type F90.2 ; Generalized anxiety disorder F41.1 and Dysthymic disorder F34.1 [place] [address], [place] [address]- 0727 February, [place] [address], [place] [address]- 4594 February, [place] [address], [place] [address]- 7648 February, Hypertension I10 and Weight gain R63.5 [place] [id number] [place] [address] 79239- 2441 February, Major depressive disorder, recurrent, moderate F33.1 and Generalized anxiety disorder F41.1 [place] [id number] [place] [address] 42719- 2738 February, ADHD (attention deficit hyperactivity disorder), combined type F90.2 ; Generalized anxiety disorder F41.1 and Dysthymic disorder F34.1 [place] [id number] [place] [address] 75868- 5724 February, [place] [address], [place] [address]- 3350 February, Asthma J45.909 ; Weight gain R63.5 ; Hypertension I10 ; Rheumatoid arthritis M06.9 and Chronic pain syndrome G89.4 [place] [address] [address]- 0039 Jan, ADHD (attention deficit hyperactivity disorder), combined type F90.2 ; Generalized anxiety disorder F41.1 and Dysthymic disorder F34.1 [place] [address], [place] [address]- 2088 Dec, ADHD (attention deficit hyperactivity disorder), combined type F90.2 ; Generalized anxiety disorder F41.1 and Dysthymic disorder F34.1 [place] [address] [address]- 8032 Dec, [place] [address], [place] [address]- 6244 Nov, [facility] [address], [place] [address]- 6374 Nov, [facility] [address], [place] [address]- 0084 Nov, [facility] [address] [address]- 6592 Nov, [facility] [address] [place] [address] 01364- 6692 Oct, [facility] [address], [place] [address]- 7902 Oct, [facility] [address] [place] [address] 48499- 1787 Oct, [facility] [address], [place] [address]- 4255 Sep, [facility] [address], [place] [address]- 4838 Sep, [facility] [address], [place] [address]- 0085 Sep, Agoraphobia with panic disorder F40.01 ; Attention-deficit hyperactivity disorder, combined type F90.2 and Dysthymic disorder F34.1 [facility] [address] [address]- 9406 Aug, [facility] [address] [address]- 1419 Aug, [facility] [address], [place] [address]- 7228 Aug, [facility] [address] [address]- 2591 Aug, Dysthymic disorder F34.1 ; Generalized anxiety disorder F41.1 and ADHD (attention deficit hyperactivity disorder), combined type F90.2 [facility] [id number] [place] [address] 62512- 2344 Aug, ADHD (attention deficit hyperactivity disorder), combined type F90.2 ; Generalized anxiety disorder F41.1 and Dysthymic disorder F34.1 [place] [id number] [place] [address] 47366- 8693 Jul, Urinary tract infection, site not specified N39.0 ; Hypotension, unspecified I95.9 and Breast cancer screening Z12.39 [place] [address] 00773- 7723 Jul, [facility] [address] 13803- 7924 Jul, [place] [address] 13491- 6155 Jul, Urinary tract infection, site not specified N39.0 ; Nausea R11.0 ; Gastroenteritis K52.9 ; Renal failure N19 and Other hypotension I95.89 [place] [id number] [place] [address] 27204- 8859 Jul, [facility] [address] 90221- 4442 Jul, [facility] [id number] [place] [address] 54113- 6696 Jul, [place] [id number] [place] [address] 60549- 9952 Jun, [facility] [id number] [place] [address] 15984- 1670 Jun, Major depression in partial remission 296.25 ; Generalized anxiety disorder 300.02 and ADHD, predominantly inattentive type 314.01 [facility] [address] 97790- 0562 May, [facility] [id number] [place] [address] 97723- 9087 Apr, Major depressive disorder, recurrent episode, severe, without mention of psychotic behavior 296.33 ; Agoraphobia with panic disorder 300.21 and Generalized anxiety disorder 300.02 [place] [id number] [place] [address] 395[address]- 4900 Apr, ADHD (attention deficit hyperactivity disorder), combined type 314.01 ; Generalized anxiety disorder 300.02 and Dysthymic disorder 300.4 [place] [id number] [place] [address] 15167- 4543 Apr, CAD (coronary artery disease) 414.00 ; HTN (hypertension) 401.9 and Tobacco use 305.1 [place] [id number] [place] [address] 01164- 5270 Apr, [place] [address] [id number] [place] [address] [id number]- 7354 Mar, ADHD (attention deficit hyperactivity disorder), combined type 314.01 ; Generalized anxiety disorder 300.02 ; Dysthymic disorder 300.4 ; No condition on [place] II V71.09 ; Rheumatoid arthritis 714.0 ; Incontinence 788.30 ; Irritable bowel syndrome 564.1 ; Osteoporosis 733.00 and Chronic pain 338.29 [place] [id number] [place] [address] 25668- 8013 Mar, Agoraphobia with panic disorder 300.21 and Major depressive disorder, recurrent episode, moderate 296.32 [place] [id number] [place] [address] 75728- 2598 Mar, [facility] [id number] [place] [address] [phone]- 9593 February, [place] [id number] [place] [address] 84716- 1780 February, Agoraphobia with panic disorder 300.21 and Major depressive disorder, recurrent episode, moderate 296.32 [place] [id number] [place] [address] [phone]- 4795 February, [place] [address] [address] 14 Jan, 2015 [facility] [facility] [address] [id number] [place] [address] Jan, [facility] [place] [facility] [address] [id number] [place] [address] 24 Dec, 2014 [facility] [place] [facility] [address] [facility] [id number] [place] [address] Dec, [facility] [place] [facility] [address] [id number] [place] [address] Dec, [facility] [place] [facility] [address] [id number] [place] [address]69 Dec, [facility] [place] [facility] [address] [facility] [id number] [place] [address] 8888 Dec, [facility] [place] [facility] [address] [facility] [id number] [place] [address] 2357 Dec, [facility] [place] [facility] [address] [facility] [id number] [place] [address] 9581 Nov, [facility] [place] [facility] [address] [facility] [id number] [place] [address] 1238 Nov, 2014 [facility] [place] [facility] [address] [facility] [id number] [place] [address] Nov, 2014 [facility] [place] [facility] [address] [facility] [id number] [place] [address] 1735 Nov, 2014 [facility] [place] [facility] [address] [facility] [id number] [place] [address]- 3238 Nov, 2014 [facility] [place] [facility] [address] [facility] [id number] [place] [address]- 6138 17 Nov, 2014 [facility] [place] [facility] [address] [facility] [id number] [place] [address]- 1112 10 Nov, 2014 [facility] [place] [facility] [address] [facility] [id number] [address] 10 Fe2014 [facility] [address] [id number] [place] [address]288 Oct, [facility] [place] [facility] [address] [id number] [place] [address]- 5497 Oct, [facility] [place] [facility] [address] [id number] [place] [address]- 8436 Oct, [facility] [place] [facility] [address] [id number] [place] [address]- 5186 Oct, [facility] [place] [facility] [address] [id number] [place] [address]- 8629 Oct, [facility] [place] [facility] [address] [id number] [place] [address] 4494 Oct, [facility] [place] [facility] [address] [id number] [place] [address]- 7735 Sep, [facility] [place] [facility] [address] [id number] [place] [address]- 7259 Sep, [facility] [place] [facility] [address] [id number] [place] [address]- 6459 Sep, [facility] [place] [facility] [address] [id number] [place] [address]- 0894 Sep, [facility] [place] [facility] [address] [id number] [place] [address]- 9035 Sep, [facility] [address] [id number] [place] [address]- 6407 Sep, [facility] [place] [address] [id number] [place] [address]- 1742 Sep, [facility] [place] [facility] [address] [id number] [place] [address]- 9379 Aug, [facility] [place] [address] [id number] [place] [address]- 2605 Aug, [facility] [address] [id number] [place] [address]- 2736 Aug, [facility] [facility] [address] [id number] [place] [address]- 7298 Aug, [facility] [address] [id number] [place] [address]- 1639 Aug, [facility] [address] [id number] [place] [address]- 5722 Aug, [facility] [address] [id number] [place] [address]- 8246 Jul, [facility] [address] [id number] [place] [address]- 7271 Jul, [facility] [facility] [address] [id number] [place] [address]- 8939 Jul, [facility] [facility] [address] [id number] [place] [address]- 9357 Jul, [facility] [address] [id number] [place] [address]- 8609 Jul, [facility] [address] [id number] [place] [address]- 9274 Jul, [facility] [address] [id number] [place] [address]- 1520 Jun, [facility] [address] [id number] [place] [address]- 6106 Jun, [facility] [address] [id number], [place] [address]- [address]242 May, [facility] [address] [id number] [place] [address]- 2290 May, [facility] [address] [id number] [place] [address]- 4870 Apr, [facility] [address] [id number] [place] [address]- 2543 Apr, [facility] [address] [id number] [place] [address]- 1627 Apr, [facility] [address] [id number] [place] [address]- 6617 Apr, [facility] [address] [id number] [place] [address]- 2117 Mar, [facility] [address] [id number] [place] [address]- 8385 Mar, [facility] [address] [id number] [place] [address]- 2753 Mar, [facility] [address] [id number] [place] [address]- 7672 Mar, [facility] [address] [id number] [place] [address]- 9740 February, [facility] [address] [id number] [place] [address] 6232 February, [facility] [address] [id number] [place] [address]- 4682 February, [facility] [address] [id number] [place] [address]- 4761 February, [facility] [address] [id number] [place] [address]- 0659 February, [facility] [address] [id number] [place] [address]- 0398 February, [facility] [address] [id number] [place] [address]- 1839 Jan, [facility] [address] [id number] [place] [address]- 9922 Jan, [facility] [address] [id number] [place] [address]- 8650 Dec, [facility] [address] [id number] [place] [address]- 1978 Dec, [facility] [address] [id number] [place] [address]- 5401 Nov, [facility] [address] [id number] [place] [address]- 8486 Nov, [facility] [address] [id number] [place] [address]- 7582 Oct, [facility] [address] [id number] [place] [address]- 8405 Oct, [facility] [address] [id number] [place] [address]- 7073 Oct, [facility] [address] [id number] [place] [address]- 0328 Oct, [facility] [address] [id number] [place] [address]- 0431 Sep, [facility] [address] [id number] [place] [address]- 9468 Sep, [facility] [address] [id number] [place] [address]- 1602 Sep, [facility] [address] [id number] [place] [address]- 2541 Sep, [facility] [address] [id number] [place] [address]- 6072 Sep, [facility] [address] [id number], [place] [address]- 8516 Sep, [facility] [address] [id number] [place] [address]- 4736 Sep, [facility] [address] [id number] [place] [address]- 7426 Sep, [facility] [address] [id number] [place] [address]- 1916 Aug, [facility] [address] [id number] [place] [address]- 3909 Aug, [facility] [address] [id number] [place] [address]- 1442 Aug, [facility] [address] [id number] [place] [address]- 9092 Aug, [facility] [address] [id number] [place] [address]- 0880 Aug, [facility] [address] [id number] [place] [address]- 2759 Aug, [facility] [address] [id number] [place] [address]- 0725 Aug, [facility] [address] [id number] [place] [address]- 3402 Aug, [facility] [address] [id number] [place] [address]- 6138 Aug, [facility] [address] [id number] [place] [address]- 6016 Jul, [facility] [address] [id number] [place] [address]- 4590 Jun, [facility] [address] [id number] [place] [address]- 7857 May, [facility] [address] [id number] [place] [address]- 7183 May, [facility] [address] [id number], [place] [address]- 3302 May, [facility] [address] [id number] [place] [address]- 1348 Apr, [facility] [address] [id number] [place] [address]- 7185 Mar, [facility] [address] [id number] [place] [address]- 4050 February, [facility] [address] [id number] [place] [address]- 7665 17 Oct, 2012 [facility] [address] [id number] [place] [address]- 5063 16 Oct, 2012 [facility] [address] [id number] [place] [address]- 4772 14 Oct, 2012 [facility] [address] [id number] [place] [address]- 7121 Oct, [facility] [address] [id number] [place] [address]- 9542 Oct, [facility] [address] [id number] [place] [address]- 7389 Oct, [facility] [address] [id number] [place] [address]- 0617 Sep, [facility] [address] [id number] [place] [address]- 2470 Sep, [facility] [address] [id number] [place] [address]- 7981 Aug, [facility] [address] [id number] [place] [address]- 7643 Aug, [facility] [address] [id number] [place] [address]- 5864 Jul, [facility] [address] [id number] [place] [address]- 0977 Jul, [facility] [address] [id number] [place] [address]- 9771 Jul, [facility] [address] [id number] [place] [address]- 7640 Jul, [facility] [address] [id number] [place] [address]- 0665 Jul, [facility] [address] [id number] [place] [address]- 5769 Jul, [facility] [address] [id number] [place] [address]- 8669 Jul, [facility] [place] [facility] [address] [id number] [place] [address]- 7431 Jul, [facility] [address] [id number] [place] [address]- 0674 16 Jun, 2012 [facility] [address] [id number] [place] [address]- 4237 Jun, [facility] [address] [id number] [place] [address]- 8501 May, [facility] [address] [id number] [place] [address]- 6163 Apr, [facility] [address] [id number] [place] [address]- 5731 Mar, [facility] [facility] [address] [id number] [place] [address]- 3771 Mar, [facility] [place] [facility] [address] [id number] [place] [address]- 0551 Mar, [facility] [place] [facility] [address] [id number] [place] [address]- 2153 Mar, [facility] [address] [id number], [place] [address]- 9950 Jan, [facility] [address] [id number], [place] [address]- 1232 Nov, [facility] [address] [id number] [place] [address]- 3288 Nov, [facility] [facility] [address] [id number], [place] [address]- 7289 Nov, [facility] [address] [id number] [place] [address]- 3852 Oct, [facility] [id number], [place] [address]- 2546 Sep, [facility] [id number], [place] [address]- 2956 Sep, [facility] [id number], [place] [address]- 3076 Aug, [facility] [id number] [place] [address]- 0627 Aug, [facility] [address] [id number], [place] [address]- 2538 Aug, [facility] [id number] [place] [address]- 4176 Aug, [facility] [id number], [place] [address]- 2946 Jul, [facility] [id number] [place] [address]- 7536 May, [facility] [id number], [place] [address]- 3693 Jan, [facility] [address] [id number], [place] [address]- 8056 Nov, [facility] [id number], [place] [address]- 4930 Apr, [facility] [id number], [place] [address]- 0556 Dec, [facility] [address] [id number], [place] [address]- 9957 Nov, IMMUNIZATIONS No Known Immunizations SOCIAL HISTORY Never Assessed REASON FOR VISIT med change PLAN OF CARE VITAL SIGNS MEDICATIONS Medication Instructions Dosage Frequency Start Date End Date Duration Status Simvastatin 40 mg Orally Once a day 1 tablet in the evening 24h Jan, 30 day(s) Active RESULTS No Results PROCEDURES No Known procedures INSTRUCTIONS MEDICATIONS ADMINISTERED No Known Medications MEDICAL (GENERAL) HISTORY Type Description Date Medical History Cardiovascular dmwljssl-NPU-Nkrmrscy, 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 Mendoza Medical History Stress test 03/07/13-Dr. Kelly Dietrich normal Medical History Hypertension Medical History Asthma Medical History Gastrointestinal Disorder--IBS, GERD, Hx of fatty liver Medical History Hernia 1979 Medical History Cervical dysplasia 02/16-Pap LGSIL/[place]-mild dysplasia Medical History Hyperlipidemia Medical History Rheumatoid [...]
--- OUTSIDE RECORDS SUMMARY | 2018-06-12 15:56 | XMS REPORT ---
Author Author LORI SNOWDEN Organization [facility] Address [address] [place] [address] Care Team Providers Care Gardening Supervisor Name Role Phone LORI SNOWDEN Unavailable PROBLEMS Type Condition ICD9-CM Code QVQ26-QF Code Onset Dates Condition Status SNOMED Code Problem ADHD (attention deficit hyperactivity disorder), combined type F90.2 Active 91318940 Problem Other nursing home (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 Active 805895527 Problem Generalized anxiety disorder F41.1 Active 66896829 Problem Cerebrovascular accident (CVA), unspecified mechanism I63.9 Active 991513847 Problem Asthma J45.909 Active 979913301 Problem Dysthymic disorder F34.1 Active 14334417 Problem Rheumatoid arthritis involving multiple sites, unspecified rheumatoid factor presence M06.9 Active 519899844 Problem Sleep apnea in adult G47.30 Active 73628744 Problem Seasonal allergies J30.2 Active 941635486 Problem Mild episode of recurrent major depressive disorder F33.0 Active 960724915 Problem Rheumatoid arthritis M06.9 Active 34302801 Problem Chronic pain syndrome G89.4 Active 402197564 Problem Hypertension I10 Active 12615929 Problem Anxiety F41.9 Active 23124735 Problem Gastroesophageal reflux disease with esophagitis K21.0 Active 013407371 Problem Panic attacks F41.0 Active 655355076 Problem Irritable bowel syndrome with diarrhea K58.0 Active 624477671 Problem Mixed hyperlipidemia E78.2 Active 711522549 Problem Hyperinsulinemia E16.1 Active 30144501 Problem Weight gain R63.5 Active 8203298 Problem Arteriosclerotic coronary artery disease I25.10 Active 94584701 Problem Chronic obstructive pulmonary disease, unspecified J44.9 Active [id number] Problem Obstructive sleep apnea G47.33 Active 98783107 Problem Neuropathy G62.9 Active 220339865 Problem Other insomnia G47.09 Active 041483715 ALLERGIES No Information ENCOUNTERS Encounter Location Date Diagnosis [facility] [id number] [place] [address] 64629- 6705 May, [facility] [id number] [place] [address] 89061- 7315 Apr, [address]05 [facility] [id number] [place] [address] 09978- 4570 Mar, Mild episode of recurrent major depressive disorder F33.0 [facility] [id number] [place] [address] 96247- 6210 Mar, Mild episode of recurrent major depressive disorder F33.0 and Generalized anxiety disorder F41.1 [facility] [id number] [place] [address] 23283- 0445 Mar, Seasonal allergies J30.2 [facility] [id number] [place] [address] 43848- 5387 Mar, Seasonal allergies J30.2 [facility] [id number] [place] [address] 54374- 3420 February, Generalized anxiety disorder F41.1 [facility] [id number] [place] [address] 72772 -7709 February, Cough R05 and Seasonal allergies J30.2 [facility] [address], [place] [address] 9071 February, Generalized anxiety disorder F41.1 and Mild episode of recurrent major depressive disorder F33.0 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 [address] [address] 32[address] February, [facility] [id number] [place] [address] 16301- 5111 Jan, Mixed hyperlipidemia E78.2 [facility] [id number] [place] [address] Jan, [facility] [id number] [place] [address] 14793- 2946 Jan, [facility] [id number] [place] [address] 63079- 4969 Jan, [facility] [id number] [place] [address] 03245- 8815 Jan, [facility] [id number] [place] [address], [place] [address]- [address] Dec, [facility] [id number] [place] [address] 09192- 3728 Dec, [facility] [id number] [place] [address] 94075- 0270 Dec, [facility] [id number] [place] [address] 35760- 5972 Nov, Dysthymic disorder F34.1 [facility] [id number] [place] [address] 12126- 6965 Oct, [facility] [address] [address]- 2478 Oct, [facility] [id number] [place] [address] 76851- 5259 Oct, [facility] [address] [place] [address]- 9750 Oct, Diarrhea, unspecified type R19.[address] [facility] [address] [address] Oct, [facility] [address] [address] 9560 Sep, [facility] [id number] [place] [address] 82677- 4680 Sep, [facility] [id number] [place] [address] 21609- 9897 Sep, Anxiety F41.9 [facility] [id number] [place] [address] 47531- 5794 Sep, Cerebrovascular accident (CVA), unspecified mechanism I63.9 ; Mixed hyperlipidemia E78.2 ; Gastroesophageal reflux disease with esophagitis K21.0 and Anxiety F41.9 [facility] [id number] [place] [address] 01039- 5225 Sep, [facility] [address] 40173- 8571 Aug, Chronic obstructive pulmonary disease, unspecified J44.9 ; Asthma J45.909 ; Nausea R11.0 ; Dysthymic disorder F34.1 ; Cerebrovascular accident (CVA), unspecified mechanism I63.9 and Rheumatoid arthritis M06.9 [facility] [id number] [place] [address] 04773- 2795 Aug, Nausea R11.0 ; Encounter for immunization Z23 ; Sleep apnea in adult G47.30 ; Rheumatoid arthritis involving multiple sites, unspecified rheumatoid factor presence M06.9 ; Generalized anxiety disorder F41.1 ; Dysthymic disorder F34.1 and Asthma J45.909 [facility] [id number] [place] [address] 36271- 7628 Jul, [facility] [id number] [place] [address] 50267- 5178 May, ADHD (attention deficit hyperactivity disorder), combined type F90.2 ; Generalized anxiety disorder F41.1 and Persistent depressive disorder F34.1 [facility] [id number] [place] [address] 96561- 3888 May, Cerebrovascular accident (CVA), unspecified mechanism I63.9 [facility] [id number] [place] [address] 40129- 4187 Apr, Mixed hyperlipidemia E78.2 and Cerebrovascular accident (CVA ), unspecified mechanism I63.9 [facility] [address] 51382- 1989 Apr, Generalized anxiety disorder F41.1 [facility] [id number] [place] [address] 81012- 1777 Apr, Bronchitis J40 and Tobacco use Z72.0 [facility] [address] 64113- 2348 Apr, Mixed hyperlipidemia E78.2 [facility] [address] 10461- 6732 Apr, Other nursing home (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 [facility] [address] 33311- 4608 Apr, [facility] [address] 35838- 6214 Apr, Generalized anxiety disorder F41.1 [facility] [address] 25138- 7992 Apr, Obstructive sleep apnea G47.33 and Hyperinsulinemia E16.1 [place] [id number] [place] [address] 20414- 3918 Apr, ADHD (attention deficit hyperactivity disorder), combined type F90.2 ; Generalized anxiety disorder F41.1 and Persistent depressive disorder F34.1 [facility] [id number] [place] [address] 36642- 9984 Mar, [facility] [address] 11398- 8735 Mar, Generalized anxiety disorder F41.1 [facility] [id number] [place] [address] 93376- 6358 Mar, Tarsal tunnel syndrome of both lower extremities G57.53 [facility] [address] 19813- 0736 February, [facility] [id number] [place] [address] 85353- 5446 February, [facility] [id number] [place] [address] 57433- 5719 February, Asthma J45.909 [facility] [id number] [place] [address] 13646- 8266 February, Generalized anxiety disorder F41.1 [facility] [address] 30321- 2809 February, Hypoxemia R09.02 ; Hyperglycemia R73.9 ; Rheumatoid arthritis M06.9 and Generalized anxiety disorder F41.1 [facility] [id number] [place] [address] 33291- 5894 February, [facility] [address] 61485- 7699 Jan, Chronic obstructive pulmonary disease, unspecified J44.9 [facility] [id number] [place] [address] 41120- 4675 Jan, Chronic pain syndrome G89.4 [facility] [id number] [place] [address] 69940- 0134 Jan, Hypoxemia R09.02 [facility] [id number] [place] [address] 93293- 8622 Jan, [facility] [id number] [place] [address] 56436- 8784 Jan, Chronic obstructive pulmonary disease, unspecified J44.9 ; Hypoxemia R09.02 ; Other insomnia G47.09 and Left anterior shoulder pain M25.512 [facility] [id number] [place] [address] 27034- 1200 07 Jan, 2017 Numbness in feet R20.0 and Neuropathy G62.9 [facility] [address] 02409- 8565 Jan, [facility] [id number] [place] [address] 09967- 3850 Dec, Acute pain of left shoulder M25.512 [facility] [id number] [place] [address] 704272- 9636 Dec, Acute pain of left shoulder M25.512 [facility] [id number] [place] [address] 16770- 0742 Dec, Generalized anxiety disorder F41.1 [facility] [id number] [place] [address] 92981- 0640 Dec, Generalized anxiety disorder F41.1 [facility] [id number] [place] [address] 55233- 6062 Nov, ADHD (attention deficit hyperactivity disorder), combined type F90.2 ; Generalized anxiety disorder F41.1 and Persistent depressive disorder F34.1 [facility] [id number] [place] [address] 45612- 2797 Nov, Acute pain of left shoulder M25.512 [facility] [id number] [place] [address] 41742- 2423 Nov, ADHD (attention deficit hyperactivity disorder), combined type F90.2 ; Generalized anxiety disorder F41.1 and Persistent depressive disorder F34.1 [facility] [id number] [place] [address] 73908- 0695 Nov, Chronic pain syndrome G89.4 [facility] [id number] [place] [address] 80933- 5168 Nov, Chronic pain syndrome G89.4 [facility] [id number] [place] [address] 02783- 3123 Nov, Acute pain of left shoulder M25.512 [facility] [id number] [place] [address] 27979- 1507 Nov, Generalized anxiety disorder F41.1 [facility] [id number] [place] [address] 63254- 8089 Nov, Acute pain of left shoulder M25.512 [facility] [id number] [place] [address] 52929- 2678 Nov, ADHD (attention deficit hyperactivity disorder), combined type F90.2 ; Generalized anxiety disorder F41.1 and Persistent depressive disorder F34.1 [facility] [address] 64246- 1788 Nov, Acute pain of left shoulder M25.512 ; Generalized anxiety disorder F41.1 ; Chronic pain syndrome G89.4 ; Hyperinsulinemia E16.1 ; Pain of left foot M79.672 and Pain in right foot M79.671 [facility] [id number] [place] [address] 55589- 6721 Oct, ADHD (attention deficit hyperactivity disorder), combined type F90.2 ; Generalized anxiety disorder F41.1 and Dysthymic disorder F34.1 [facility] [id number] [place] [address] 43011- 4341 Sep, [facility] [id number] [place] [address] 09593- 5559 Sep, [facility] [id number] [place] [address] 61526- 1178 Sep, Routine gynecological examination V72.31 ; Cervical cancer screening Z12.4 ; Breast cancer screening Z12.39 ; Colon cancer screening Z12.11 ; Hypokalemia E87.6 ; Herpes simplex type 1 infection B00.9 and Abscess of right axilla L02.411 [facility] [address] 18164- 7892 Sep, [facility] [id number] [place] [address] 80156- 3920 Sep, ADHD (attention deficit hyperactivity disorder), combined type F90.2 ; Generalized anxiety disorder F41.1 and Dysthymic disorder F34.1 [facility] [id number] [place] [address] 54576- 1464 Aug, [facility] [address] 57605- 4165 Aug, [facility] [id number] [place] [address] 10139- 5517 Aug, Generalized anxiety disorder F41.1 [facility] [id number] [place] [address] 65747- 2617 Aug, ADHD (attention deficit hyperactivity disorder), combined type F90.2 ; Generalized anxiety disorder F41.1 and Dysthymic disorder F34.1 [facility] [id number] [place] [address] 53446- 0820 Jul, Chronic pain syndrome G89.4 ; Hypertension I10 ; Hypokalemia E87.6 ; Asthma J45.909 and Nausea R11.0 [facility] [id number] [place] [address] 28782- 3697 Jul, [facility] [id number] [place] [address] 10696- 2950 Jul, Asthma J45.909 [facility] [id number] [place] [address] 33716- 7235 Jul, ADHD (attention deficit hyperactivity disorder), combined type F90.2 ; Generalized anxiety disorder F41.1 and Dysthymic disorder F34.1 [facility] [id number] [place] [address] 63030- 8718 Jul, [facility] [id number] [place] [address] 51388- 2657 Jul, Hypertension I10 ; Arteriosclerotic coronary artery disease I25.10 ; Mixed hyperlipidemia E78.2 ; 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 and Hyperglycemia R73.9 [facility] [id number] [place] [address] 45879- 0725 Jun, Hypokalemia E87.6 and Hyperglycemia R73.9 [facility] [address] 14508- 3699 14 Jun, 2016 [facility] [address]70[address]- 5303 Jun, Abnormal kidney function N28.9 [facility] [address] 35225- 6865 Jun, [facility] [address] 16104- 9129 Jun, ADHD (attention deficit hyperactivity disorder), combined type F90.2 ; Generalized anxiety disorder F41.1 and Dysthymic disorder F34.1 [facility] [address] 23359- 5269 Jun, Generalized anxiety disorder F41.1 and Dysthymic disorder F34.1 [facility] [address] 39134- 4410 Jun, Hypokalemia E87.6 [facility] [address] 577027- 1384 May, Hypokalemia E87.6 ; Vertigo R42 and Hyperinsulinemia E16.1 [facility] [address] 78428- 9263 May, [facility] [address] 577024- 6585 May, Abnormal kidney function N28.9 ; Hyperinsulinemia E16.1 and Nausea R11.[address] 14926- 2675 May, Hypokalemia E87.6 ; Nausea R11.0 ; Epigastric pain R10.13 ; Dehydration E86.0 ; Diaphoresis R61 and Right arm pain M79.601 [facility] [address]- 0833 May, [facility] [id number] [place] [address] 06098- 8801 May, Hypokalemia E87.6 [facility] [id number] [place] [address] 17250- 4462 May, Hypokalemia E87.6 [facility] [id number] [place] [address] 99532- 4794 Apr, [facility] [id number] [place] [address] 06973- 6814 Apr, ADHD (attention deficit hyperactivity disorder), combined type F90.2 ; Generalized anxiety disorder F41.1 and Dysthymic disorder F34.1 [facility] [id number] [place] [address] 66261- 0605 Apr, Right arm pain M79.601 and Hyperinsulinemia E16.1 [facility] [id number] [place] [address] 61367- 3661 Mar, [facility] [id number] [place] [address] 86913- 4125 Mar, [facility] [id number] [place] [address] 55703- 3373 Mar, Hyperinsulinemia E16.1 ; Hyperlipidemia, unspecified hyperlipidemia type E78.5 ; Central venous catheter in place Z78.9 ; Generalized anxiety disorder F41.1 and Urinary tract infection, site not specified N39.0 [facility] [id number] [place] [address] 55520- 4081 Mar, ADHD (attention deficit hyperactivity disorder), combined type F90.2 ; Generalized anxiety disorder F41.1 and Dysthymic disorder F34.1 [facility] [id number] [place] [address] 95258- 2849 February, ADHD (attention deficit hyperactivity disorder), combined type F90.2 ; Generalized anxiety disorder F41.1 and Dysthymic disorder F34.1 [facility] [address], [place] [address]- 6314 February, [facility] [address] [place] [address]- 3486 February, [facility] [address], [place] [address]- 0591 February, Hypertension I10 and Weight gain R63.5 [facility] [id number] [place] [address] 71532- 0631 February, Major depressive disorder, recurrent, moderate F33.1 and Generalized anxiety disorder F41.1 [facility] [id number] [place] [address] 34141- 1735 February, ADHD (attention deficit hyperactivity disorder), combined type F90.2 ; Generalized anxiety disorder F41.1 and Dysthymic disorder F34.1 [facility] [id number] [place] [address] 22387- 0656 February, [facility] [address] [address]- 7266 February, Asthma J45.909 ; Weight gain R63.5 ; Hypertension I10 ; Rheumatoid arthritis M06.9 and Chronic pain syndrome G89.4 [facility] [address] [place] [address]- 1345 Jan, ADHD (attention deficit hyperactivity disorder), combined type F90.2 ; Generalized anxiety disorder F41.1 and Dysthymic disorder F34.1 [facility] [address], [place] [address]- 2257 Dec, ADHD (attention deficit hyperactivity disorder), combined type F90.2 ; Generalized anxiety disorder F41.1 and Dysthymic disorder F34.1 [facility] [address], [place] [address]- 8352 Dec, [facility] [address], [place] [address]- 8143 Nov, [facility] [address] [place] [address]- 5650 Nov, [facility] [address], [place] [address]- 0857 Nov, [facility] [address], [place] [address]- 4055 Nov, [facility] [id number] [place] [address] 27326- 5468 Oct, [facility] [address] [address]- 3135 Oct, [facility] [id number] [place] [address] 29660- 8119 Oct, [facility] [address], [place] [address]- 5093 Sep, [facility] [address], [place] [address]- 0765 Sep, [facility] [address], [place] [address]- 2599 Sep, Agoraphobia with panic disorder F40.01 ; Attention-deficit hyperactivity disorder, combined type F90.2 and Dysthymic disorder F34.1 [facility] [address], [place] [address]- 8611 Aug, [facility] [address] [address]- 0109 Aug, [facility] [address], [place] [address]- 4930 Aug, [facility] [address] [address]- 4472 Aug, Dysthymic disorder F34.1 ; Generalized anxiety disorder F41.1 and ADHD (attention deficit hyperactivity disorder), combined type F90.2 [facility] [id number] [place] [address] 29897- 2748 Aug, ADHD (attention deficit hyperactivity disorder), combined type F90.2 ; Generalized anxiety disorder F41.1 and Dysthymic disorder F34.1 [facility] [id number] [place] [address] 67057- 8416 Jul, Urinary tract infection, site not specified N39.0 ; Hypotension, unspecified I95.9 and Breast cancer screening Z12.39 [facility] [address] 23950- 8130 Jul, [facility] [address] 55214- 0577 Jul, [facility] [address] 66375- 4367 Jul, Urinary tract infection, site not specified N39.0 ; Nausea R11.0 ; Gastroenteritis K52.9 ; Renal failure N19 and Other hypotension I95.89 [facility] [id number] [place] [address] 42936- 7310 Jul, [facility] [address] 95664- 7070 Jul, [facility] [id number] [place] [address] 47009- 8545 Jul, [facility] [id number] [place] [address] 86710- 6982 Jun, [facility] [id number] [place] [address] 02889- 7055 Jun, Major depression in partial remission 296.25 ; Generalized anxiety disorder 300.02 and ADHD, predominantly inattentive type 314.01 [facility] [address] 00707- 5639 May, [facility] [id number] [place] [address] [phone]- 8154 Apr, Major depressive disorder, recurrent episode, severe, without mention of psychotic behavior 296.33 ; Agoraphobia with panic disorder 300.21 and Generalized anxiety disorder 300.02 [id number] [place] [address] 25198- 7047 Apr, ADHD (attention deficit hyperactivity disorder), combined type 314.01 ; Generalized anxiety disorder 300.02 and Dysthymic disorder 300.4 [id number] [place] [address] 20224- 8577 Apr, CAD (coronary artery disease) 414.00 ; HTN (hypertension) 401.9 and Tobacco use 305.1 [address] [id number] [place] [address] 06109- 7725 Apr, [place] [facility] [id number] [place] [address] 28846- 1038 Mar, ADHD (attention deficit hyperactivity disorder), combined type 314.01 ; Generalized anxiety disorder 300.02 ; Dysthymic disorder 300.4 ; No condition on Prosper II V71.09 ; Rheumatoid arthritis 714.0 ; Incontinence 788.30 ; Irritable bowel syndrome 564.1 ; Osteoporosis 733.00 and Chronic pain 338.29 [place] [id number] [place] [address] 71606- 7391 Mar, Agoraphobia with panic disorder 300.21 and Major depressive disorder, recurrent episode, moderate 296.32 [address] [id number] [place] [address] 10817- 0110 Mar, [facility] [id number] [place] [address] [phone]- 7502 February, [place] [id number] [place] [address] 92109- 1116 February, Agoraphobia with panic disorder 300.21 and Major depressive disorder, recurrent episode, moderate 296.32 [place] [id number] [place] [address] 16947- 3897 February, [place] [address] [address] 14 Jan, 2015 [facility] [place] [facility] [address] [id number] [place] [address] Jan, [facility] [place] [facility] [address] [id number] [place] [address] 24 Dec, 2014 [facility] [place] [facility] [address] [facility] [id number] [place] [address] Dec, [facility] [place] [facility] [address] [id number] [place] [address] Dec, [facility] [place] [facility] [address] [id number] [place] [address] Dec, [facility] [place] [facility] [address] [facility] [id number] [place] [address] Dec, [facility] [place] [facility] [address] [facility] [id number] [place] [address] Dec, [facility] [place] [facility] [address] [facility] [id number] [place] [address] Nov, [facility] [place] [facility] [address] [facility] [id number] [place] [address]- [address] Nov, 2014 [facility] [place] [facility] [address] [facility] [id number] [place] [address] 9148 Nov, 2014 [facility] [place] [facility] [address] [facility] [id number] [place] [address]- 14[address] Nov, 2014 [facility] [place] [facility] [address] [facility] [id number] [place] [address]- [address] Nov, 2014 [facility] [place] [facility] [address] [facility] [id number] [place] [address]- [address] 17 Nov, 2014 [facility] [place] [facility] [address] [facility] [id number] [place] [address] 10 Nov, 2014 [facility] [place] [facility] [address] [facility] [id number] [address] 10 Fe2014 [facility] [place] [facility] [address] [id number] [place] [address] Oct, [facility] [place] [facility] [address] [id number] [place] [address]- [address] Oct, [facility] [place] [facility] [address] [id number] [place] [address] 1988 Oct, [facility] [place] [facility] [address] [id number] [place] [address]- 34[address] Oct, [facility] [place] [facility] [address] [id number] [place] [address] Oct, [facility] [place] [facility] [address] [id number] [place] [address] 1954 Oct, [facility] [place] [facility] [address] [id number] [place] [address]- 3315 Sep, [facility] [place] [facility] [address] [id number] [place] [address]- 5398 Sep, [facility] [place] [facility] [address] [id number] [place] [address]- 96[address] Sep, [facility] [place] [facility] [address] [id number] [place] [address]- 1254 Sep, [facility] [place] [facility] [address] [id number] [place] [address]- 4610 Sep, [facility] [place] [facility] [address] [id number] [place] [address]- 5760 Sep, [facility] [place] [facility] [address] [id number] [place] [address]- 3984 Sep, [facility] [place] [facility] [address] [id number] [place] [address]- 5107 Aug, [facility] [place] [facility] [address] [id number] [place] [address]- 6646 Aug, [facility] [place] [facility] [address] [id number] [place] [address]- 0886 Aug, [facility] [place] [facility] [address] [id number] [place] [address]- 1371 Aug, [facility] [place] [facility] [address] [id number] [place] [address]- 9491 Aug, [facility] [place] [facility] [address] [id number] [place] [address]- 9543 Aug, [facility] [place] [facility] [address] [id number] [place] [address]- 38[address] Jul, [facility] [place] [facility] [address] [id number] [place] [address]- 4929 Jul, [facility] [place] [facility] [address] [id number] [place] [address]- 1449 Jul, [facility] [place] [facility] [address] [id number] [place] [address]- [address] Jul, [facility] [place] [facility] [address] [id number] [place] [address]- 6762 Jul, [facility] [place] [facility] [address] [id number] [place] [address]- 1665 Jul, [facility] [place] [facility] [address] [id number] [place] [address]- 9849 Jun, [facility] [place] [facility] [address] [id number] [place] [address]- 6181 Jun, [facility] [place] [facility] [address] [id number], [place] [address] May, [facility] [place] [facility] [address] [id number] [place] [address]- 1395 May, [facility] [place] [facility] [address] [id number] [place] [address]- 1714 Apr, [facility] [place] [facility] [address] [id number] [place] [address]- 2545 Apr, [facility] [place] [facility] [address] [id number] [place] [address]- 7303 Apr, [facility] [address] [id number] [place] [address]- 8838 Apr, [facility] [place] [facility] [address] [id number] [place] [address]- 9701 Mar, [facility] [place] [facility] [address] [id number] [place] [address]- 5652 Mar, [facility] [place] [facility] [address] [id number] [place] [address]- 8970 Mar, [facility] [address] [id number] [place] [address]- 8503 Mar, [facility] [address] [id number] [place] [address]- [address] February, [facility] [place] [facility] [address] [id number] [place] [address] 1114 February, [facility] [address] [id number] [place] [address]- 0437 February, [facility] [place] [facility] [address] [id number] [place] [address] 4154 February, [facility] [address] [id number] [place] [address]- 1843 February, [facility] [place] [facility] [address] [id number] [place] [address]- 9178 February, [facility] [place] [facility] [address] [id number] [place] [address]- 4730 Jan, [facility] [place] [facility] [address] [id number] [place] [address]- 7748 Jan, [facility] [place] [facility] [address] [id number] [place] [address]- 9569 Dec, [facility] [place] [facility] [address] [id number] [place] [address]- 4712 Dec, [facility] [address] [id number] [place] [address]- [address] Nov, [facility] [place] [facility] [address] [id number] [place] [address]- 2916 Nov, [facility] [place] [facility] [address] [id number] [place] [address]- 0396 Oct, [facility] [place] [facility] [address] [id number] [place] [address]- 4224 Oct, [facility] [place] [facility] [address] [id number] [place] [address]- 1018 Oct, [facility] [place] [facility] [address] [id number] [place] [address]- 5885 Oct, [facility] [place] [facility] [address] [id number] [place] [address]- 1975 Sep, [facility] [place] [facility] [address] [id number] [place] [address]- 2463 Sep, [facility] [place] [facility] [address] [id number] [place] [address]- 3961 Sep, [facility] [place] [facility] [address] [id number] [place] [address]- 0984 Sep, [facility] [place] [facility] [address] [id number] [place] [address]- 8089 Sep, [facility] [place] [facility] [address] [id number], [place] [address]- 9735 Sep, [facility] [place] [facility] [address] [id number] [place] [address]- 3206 Sep, [facility] [place] [facility] [address] [id number] [place] [address]- 6586 Sep, [facility] [place] [facility] [address] [id number] [place] [address]- 4056 Aug, [facility] [place] [facility] [address] [id number] [place] [address]- 3288 Aug, [facility] [place] [facility] [address] [id number] [place] [address]- 3502 Aug, [facility] [place] [facility] [address] [id number] [place] [address]- 0768 Aug, [facility] [place] [facility] [address] [id number] [place] [address]- 5486 Aug, [facility] [place] [facility] [address] [id number] [place] [address]- 5307 Aug, [facility] [place] [facility] [address] [id number] [place] [address]- 4690 Aug, [facility] [place] [facility] [address] [id number] [place] [address]- 7405 Aug, [facility] [place] [facility] [address] [id number] [place] [address]- 6061 Aug, [facility] [place] [facility] [address] [id number] [place] [address]- 9180 Jul, [facility] [place] [facility] [address] [id number] [place] [address]- 4970 Jun, [facility] [place] [facility] [address] [id number] [place] [address]- 5724 May, [facility] [place] [facility] [address] [id number] [place] [address]- 4513 May, [facility] [place] [facility] [address] [id number], [place] [address]- 9079 May, [facility] [place] [facility] [address] [id number] [place] [address]- 9779 Apr, [facility] [place] [facility] [address] [id number] [place] [address]- 5212 Mar, [facility] [place] [facility] [address] [id number] [place] [address]- 0408 February, [facility] [place] [facility] [address] [id number] [place] [address]- 0304 17 Oct, 2012 [facility] [place] [facility] [address] [id number] [place] [address]- 9972 16 Oct, 2012 [facility] [place] [facility] [address] [id number] [place] [address]- 1465 14 Oct, 2012 [facility] [place] [facility] [address] [id number] [place] [address]- 6832 Oct, [facility] [place] [facility] [address] [id number] [place] [address]- 0563 Oct, [facility] [place] [facility] [address] [id number] [place] [address]- 7120 Oct, [facility] [place] [facility] [address] [id number] [place] [address]- 7762 Sep, [facility] [place] [facility] [address] [id number] [place] [address]- 9709 Sep, [facility] [place] [facility] [address] [id number] [place] [address]- 9359 Aug, [facility] [place] [facility] [address] [id number] [place] [address]- 0115 Aug, [facility] [place] [facility] [address] [id number] [place] [address]- 8944 Jul, [facility] [place] [facility] [address] [id number] [place] [address]- 8048 Jul, [facility] [place] [facility] [address] [id number] [place] [address]- 8304 Jul, [facility] [place] [facility] [address] [id number] [place] [address]- 4165 Jul, [facility] [place] [facility] [address] [id number] [place] [address]- 0189 Jul, [facility] [place] [facility] [address] [id number] [place] [address]- 2260 Jul, [facility] [place] [facility] [address] [id number] [place] [address]- 8999 Jul, [facility] [place] [facility] [address] [id number] [place] [address]- 8986 Jul, [facility] [place] [facility] [address] [id number] [place] [address]- 7676 16 Jun, 2012 [facility] [place] [facility] [address] [id number] [place] [address]- 1339 Jun, [facility] [place] [facility] [address] [id number] [place] [address]- 0609 May, [facility] [place] [facility] [address] [id number] [place] [address]- 1452 Apr, [facility] [place] [facility] [address] [id number] [place] [address]- 2905 Mar, [facility] [place] [facility] [address] [id number] [place] [address]- 9117 Mar, [facility] [place] [facility] [address] [id number] [place] [address]- 0172 Mar, [facility] [place] [facility] [address] [id number] [place] [address]- 0544 Mar, [facility] [place] [facility] [address] [id number], [place] [address]- 3917 Jan, [facility] [place] [facility] [address] [id number], [place] [address]- 6147 Nov, [facility] [place] [facility] [address] [id number] [place] [address]- 2887 Nov, [facility] [place] [facility] [address] [id number], [place] [address]- 2367 Nov, [facility] [place] [facility] [address] [id number] [place] [address]- 7432 Oct, [facility] [place] [facility] [id number], [place] [address] Sep, [facility] [id number], [place] [address] 7796 Sep, [facility] [id number] [address] 3396 Aug, [facility] [id number] [address] 1554 Aug, [facility] [id number] [address] 7160 Aug, [facility] [address] [place] [id number] [place] [address]- 0766 Aug, [facility] [id number] [address] 8316 Jul, [facility] [id number] [place] [address] 8366 May, [facility] [id number] [address] 4110 Jan, [facility] [id number] [address] 2971 Nov, [facility] [id number] [address] 6985 Apr, [facility] [id number], [place] [address] Dec, [facility] [address] [id number], [place] [address] 4830 Nov, IMMUNIZATIONS No Known Immunizations SOCIAL HISTORY Never Assessed REASON FOR VISIT CCM note/Diarrhea & Vomiting PLAN OF CARE VITAL SIGNS MEDICATIONS Unknown Medications RESULTS No Results PROCEDURES No Known procedures INSTRUCTIONS MEDICATIONS ADMINISTERED No Known Medications MEDICAL (GENERAL) HISTORY Type Description Date Medical History Cardiovascular jjaxwmml-[id number]-[id number], 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 Mendoza Medical History Stress test 03/07/13-Dr. Kelly Lexiscan normal Medical History Hypertension Medical History Asthma Medical History Gastrointestinal Disorder--IBS, GERD, Hx of fatty liver Medical History Hernia 1978 Medical History Cervical dysplasia 02/16-Pap LGSIL/Ionia-mild dysplasia Medical History Hyperlipidemia Medical History Rheumatoid [...]
--- OUTSIDE RECORDS SUMMARY | 2018-06-12 15:56 | XMS REPORT ---
Author Author LORI SNOWDEN Organization [facility] Address [address] [place] [address] Care Team Providers Care Community Services Coordinator Name Role Phone LORI SNOWDEN Unavailable PROBLEMS Type Condition ICD9-CM Code TIE70-BD Code Onset Dates Condition Status SNOMED Code Problem ADHD (attention deficit hyperactivity disorder), combined type F90.2 Active 00070242 Problem Other residential (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 Active 677995055 Problem Generalized anxiety disorder F41.1 Active 92990728 Problem Cerebrovascular accident (CVA), unspecified mechanism I63.9 Active 558794851 Problem Asthma J45.909 Active 869695017 Problem Dysthymic disorder F34.1 Active 15445221 Problem Rheumatoid arthritis involving multiple sites, unspecified rheumatoid factor presence M06.9 Active 980619394 Problem Sleep apnea in adult G47.30 Active 44156605 Problem Seasonal allergies J30.2 Active 560911627 Problem Mild episode of recurrent major depressive disorder F33.0 Active 662282835 Problem Rheumatoid arthritis M06.9 Active 04771715 Problem Chronic pain syndrome G89.4 Active 947940562 Problem Hypertension I10 Active 92988817 Problem Anxiety F41.9 Active 28591930 Problem Gastroesophageal reflux disease with esophagitis K21.0 Active 561112202 Problem Panic attacks F41.0 Active 163432743 Problem Irritable bowel syndrome with diarrhea K58.0 Active 507235469 Problem Mixed hyperlipidemia E78.2 Active 960605306 Problem Hyperinsulinemia E16.1 Active 50319892 Problem Weight gain R63.5 Active 4770423 Problem Arteriosclerotic coronary artery disease I25.10 Active 47867618 Problem Chronic obstructive pulmonary disease, unspecified J44.9 Active [id number] Problem Obstructive sleep apnea G47.33 Active 66449711 Problem Neuropathy G62.9 Active 865047120 Problem Other insomnia G47.09 Active 844445144 ALLERGIES No Information ENCOUNTERS Encounter Location Date Diagnosis [facility] [id number] [place] [address] 76973- 7926 May, [facility] [id number] [place] [address] 48066- 5422 Apr, Cough R05 [facility] [id number] [place] [address] 07275- 1135 Mar, Mild episode of recurrent major depressive disorder F33.0 [facility] [id number] [place] [address] 81518- 3958 Mar, Mild episode of recurrent major depressive disorder F33.0 and Generalized anxiety disorder F41.1 [facility] [id number] [place] [address] 99143- 6311 Mar, Seasonal allergies J30.2 [facility] [id number] [place] [address] 69653- 8434 Mar, Seasonal allergies J30.2 [facility] [id number] [place] [address] 83486- 7280 February, Generalized anxiety disorder F41.1 [facility] [id number] [place] [address] 15534 -7760 February, Cough R05 and Seasonal allergies J30.2 [facility] [address] [address] 9567 February, Generalized anxiety disorder F41.1 and Mild episode of recurrent major depressive disorder F33.0 [facility] [id number] [place] [address] 70601- 8112 February, Other meterman (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 ; Anxiety F41.9 ; Panic attacks F41.0 and Irritable bowel syndrome with diarrhea K58.0 [facility] [address] [address] 3865 February, [facility] [id number] [place] [address] 71730- 3843 Jan, Mixed hyperlipidemia E78.2 [facility] [address] [place] [address]- 7614 Jan, [facility] [address] [place] [address] 50733- 4505 Jan, [facility] [id number] [place] [address] 76739- 4315 Jan, [facility] [id number] [place] [address] 95652- 0843 Jan, [facility] [id number] [place] [address], [place] [address]- 0687 Dec, [facility] [id number] [place] [address] 84943- 8416 Dec, [facility] [id number] [place] [address] 39514- 8814 Dec, [facility] [address] [place] [address] 23206- 0693 Nov, Dysthymic disorder F34.1 [facility] [id number] [place] [address] 16680- 6862 Oct, [facility] [address], [place] [address]- 4788 Oct, [facility] [address] [place] [address] 61201- 4103 Oct, [facility] [address] [address]- 4476 Oct, Diarrhea, unspecified type R19.7 and Dysuria R30.0 [facility] [address] 8228 Oct, [facility] [address] [place] [address]- 6659 Sep, [facility] [id number] [place] [address] 68659- 9620 Sep, [facility] [id number] [place] [address] 34165- 6360 Sep, Anxiety F41.9 [facility] [id number] [place] [address] 61525- 9305 Sep, Cerebrovascular accident (CVA), unspecified mechanism I63.9 ; Mixed hyperlipidemia E78.2 ; Gastroesophageal reflux disease with esophagitis K21.0 and Anxiety F41.9 [facility] [id number] [place] [address] 16212- 0719 Sep, [place] [address] 07285- 8573 Aug, Chronic obstructive pulmonary disease, unspecified J44.9 ; Asthma J45.909 ; Nausea R11.0 ; Dysthymic disorder F34.1 ; Cerebrovascular accident (CVA), unspecified mechanism I63.9 and Rheumatoid arthritis M06.9 [facility] [id number] [place] [address] 02174- 1930 Aug, Nausea R11.0 ; Encounter for immunization Z23 ; Sleep apnea in adult G47.30 ; Rheumatoid arthritis involving multiple sites, unspecified rheumatoid factor presence M06.9 ; Generalized anxiety disorder F41.1 ; Dysthymic disorder F34.1 and Asthma J45.909 [facility] [id number] [place] [address] 05993- 6056 Jul, [facility] [id number] [place] [address] 62030- 9411 May, ADHD (attention deficit hyperactivity disorder), combined type F90.2 ; Generalized anxiety disorder F41.1 and Persistent depressive disorder F34.1 [facility] [id number] [place] [address] 85632- 8895 May, Cerebrovascular accident (CVA), unspecified mechanism I63.9 [facility] [id number] [place] [address] 82008- 5504 Apr, Mixed hyperlipidemia E78.2 and Cerebrovascular accident (CVA ), unspecified mechanism I63.9 [facility] [address] 98361- 1538 Apr, Generalized anxiety disorder F41.1 [facility] [id number] [place] [address] 61556- 1476 Apr, Bronchitis J40 and Tobacco use Z72.0 [facility] [facility] [address] 28162- 3668 Apr, Mixed hyperlipidemia E78.2 [place] [address] 30467- 0432 Apr, Other residential (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 [place] [address] 68835- 2758 Apr, [place] [address] 16636- 6056 Apr, Generalized anxiety disorder F41.1 [facility] [facility] [address] 10409- 7470 Apr, Obstructive sleep apnea G47.33 and Hyperinsulinemia E16.1 [place] [id number] [place] [address] 80470- 7009 Apr, ADHD (attention deficit hyperactivity disorder), combined type F90.2 ; Generalized anxiety disorder F41.1 and Persistent depressive disorder F34.1 [facility] [id number] [place] [address] 71049- 2279 Mar, [facility] [facility] [address] 70739- 2084 Mar, Generalized anxiety disorder F41.1 [facility] [id number] [place] [address] 17408- 7808 Mar, Tarsal tunnel syndrome of both lower extremities G57.53 [facility] [facility] [address] 43633- 8286 February, [facility] [id number] [place] [address] 07385- 7439 February, [facility] [id number] [place] [address] 06515- 1248 February, Asthma J45.909 [facility] [id number] [place] [address] 25053- 3810 February, Generalized anxiety disorder F41.1 [facility] [facility] [address] 55942- 3224 February, Hypoxemia R09.02 ; Hyperglycemia R73.9 ; Rheumatoid arthritis M06.9 and Generalized anxiety disorder F41.1 [facility] [id number] [place] [address] 69217- 7224 February, [facility] [facility] [address] 04394- 2656 Jan, Chronic obstructive pulmonary disease, unspecified J44.9 [facility] [id number] [place] [address] 61067- 8845 Jan, Chronic pain syndrome G89.4 [facility] [id number] [place] [address] 81506- 3000 Jan, Hypoxemia R09.02 [facility] [id number] [place] [address] 99299- 0298 Jan, [facility] [id number] [place] [address] 89417- 8811 Jan, Chronic obstructive pulmonary disease, unspecified J44.9 ; Hypoxemia R09.02 ; Other insomnia G47.09 and Left anterior shoulder pain M25.512 [facility] [id number] [place] [address] 25414- 0672 07 Jan, 2017 Numbness in feet R20.0 and Neuropathy G62.9 [place] [address] 49891- 5525 Jan, [facility] [id number] [place] [address] 51691- 5810 Dec, Acute pain of left shoulder M25.512 [facility] [id number] [place] [address] 788670- 6286 Dec, Acute pain of left shoulder M25.512 [facility] [id number] [place] [address] 40780- 6269 Dec, Generalized anxiety disorder F41.1 [facility] [address] [place] [address] 47485- 1777 Dec, Generalized anxiety disorder F41.1 [facility] [id number] [place] [address] 44000- 2812 Nov, ADHD (attention deficit hyperactivity disorder), combined type F90.2 ; Generalized anxiety disorder F41.1 and Persistent depressive disorder F34.1 [facility] [address] [place] [address] 76121- 0421 Nov, Acute pain of left shoulder M25.512 [facility] [address] [place] [address] 13390- 6677 Nov, ADHD (attention deficit hyperactivity disorder), combined type F90.2 ; Generalized anxiety disorder F41.1 and Persistent depressive disorder F34.1 [facility] [address] [place] [address] 32454- 3396 Nov, Chronic pain syndrome G89.4 [facility] [id number] [place] [address] 73289- 3594 Nov, Chronic pain syndrome G89.4 [facility] [id number] [place] [address] 03715- 1856 Nov, Acute pain of left shoulder M25.512 [facility] [address] [place] [address] 64836- 2139 Nov, Generalized anxiety disorder F41.1 [facility] [id number] [place] [address] 60229- 5221 Nov, Acute pain of left shoulder M25.512 [facility] [id number] [place] [address] 18503- 7199 Nov, ADHD (attention deficit hyperactivity disorder), combined type F90.2 ; Generalized anxiety disorder F41.1 and Persistent depressive disorder F34.1 [place] [address] 09918- 1533 Nov, Acute pain of left shoulder M25.512 ; Generalized anxiety disorder F41.1 ; Chronic pain syndrome G89.4 ; Hyperinsulinemia E16.1 ; Pain of left foot M79.672 and Pain in right foot M79.671 [facility] [id number] [place] [address] 09783- 8614 Oct, ADHD (attention deficit hyperactivity disorder), combined type F90.2 ; Generalized anxiety disorder F41.1 and Dysthymic disorder F34.1 [facility] [id number] [place] [address] 90351- 5226 Sep, [facility] [id number] [place] [address] 21599- 2654 Sep, [facility] [id number] [place] [address] 01025- 2036 Sep, Routine gynecological examination V72.31 ; Cervical cancer screening Z12.4 ; Breast cancer screening Z12.39 ; Colon cancer screening Z12.11 ; Hypokalemia E87.6 ; Herpes simplex type 1 infection B00.9 and Abscess of right axilla L02.411 [place] [address] 03980- 2919 Sep, [facility] [id number] [place] [address] 26439- 7161 Sep, ADHD (attention deficit hyperactivity disorder), combined type F90.2 ; Generalized anxiety disorder F41.1 and Dysthymic disorder F34.1 [facility] [id number] [place] [address] 21643- 6128 Aug, [place] [facility] [address] 81668- 6973 Aug, [facility] [id number] [place] [address] 56925- 2221 Aug, Generalized anxiety disorder F41.1 [facility] [id number] [place] [address] 50984- 7218 Aug, ADHD (attention deficit hyperactivity disorder), combined type F90.2 ; Generalized anxiety disorder F41.1 and Dysthymic disorder F34.1 [facility] [id number] [place] [address] 10095- 1800 Jul, Chronic pain syndrome G89.4 ; Hypertension I10 ; Hypokalemia E87.6 ; Asthma J45.909 and Nausea R11.0 [facility] [id number] [place] [address] 87793- 4303 Jul, [facility] [id number] [place] [address] 66616- 4822 Jul, Asthma J45.909 [facility] [id number] [place] [address] 80021- 1158 Jul, ADHD (attention deficit hyperactivity disorder), combined type F90.2 ; Generalized anxiety disorder F41.1 and Dysthymic disorder F34.1 [facility] [id number] [place] [address] 94309- 1186 Jul, [facility] [id number] [place] [address] 73894- 6454 Jul, Hypertension I10 ; Arteriosclerotic coronary artery disease I25.10 ; Mixed hyperlipidemia E78.2 ; Other meterman (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 and Hyperglycemia R73.9 [facility] [id number] [place] [address] 85247- 9664 Jun, Hypokalemia E87.6 and Hyperglycemia R73.9 [place] [address] 56220- 8334 14 Jun, 2016 [place] [address] [place] [address]- 7312 Jun, Abnormal kidney function N28.9 [place] [address] 40788- 7006 Jun, [facility] [facility] [address] 28903- 7425 Jun, ADHD (attention deficit hyperactivity disorder), combined type F90.2 ; Generalized anxiety disorder F41.1 and Dysthymic disorder F34.1 [place] [address] 64480- 1848 Jun, Generalized anxiety disorder F41.1 and Dysthymic disorder F34.1 [place] [address] 81602- 3779 Jun, Hypokalemia E87.6 [place] [address] [place] [address]576[address]- 3406 May, Hypokalemia E87.6 ; Vertigo R42 and Hyperinsulinemia E16.1 [place] [address] 96455- 9050 May, [place] [address] [place] [address]57682- 6325 May, Abnormal kidney function N28.9 ; Hyperinsulinemia E16.1 and Nausea R11.[address] 47620- 7987 May, Hypokalemia E87.6 ; Nausea R11.0 ; Epigastric pain R10.13 ; Dehydration E86.0 ; Diaphoresis R61 and Right arm pain M79.601 [place] [address] [place] [address]2522- 3356 May, [facility] [address] [place] [address] 23730- 0472 May, Hypokalemia E87.6 [facility] [id number] [place] [address] 16457- 0930 May, Hypokalemia E87.6 [facility] [facility] [id number] [place] [address] 89244- 0048 Apr, [facility] [id number] [place] [address] 37098- 3305 Apr, ADHD (attention deficit hyperactivity disorder), combined type F90.2 ; Generalized anxiety disorder F41.1 and Dysthymic disorder F34.1 [facility] [facility] [id number] [place] [address] 80906- 8098 Apr, Right arm pain M79.601 and Hyperinsulinemia E16.1 [facility] [id number] [place] [address] 49828- 3455 Mar, [facility] [id number] [place] [address] 40636- 7644 Mar, [facility] [facility] [id number] [place] [address] 30593- 3724 Mar, Hyperinsulinemia E16.1 ; Hyperlipidemia, unspecified hyperlipidemia type E78.5 ; Central venous catheter in place Z78.9 ; Generalized anxiety disorder F41.1 and Urinary tract infection, site not specified N39.0 [facility] [facility] [id number] [place] [address] 08611- 9947 Mar, ADHD (attention deficit hyperactivity disorder), combined type F90.2 ; Generalized anxiety disorder F41.1 and Dysthymic disorder F34.1 [facility] [id number] [place] [address] 50594- 9684 February, ADHD (attention deficit hyperactivity disorder), combined type F90.2 ; Generalized anxiety disorder F41.1 and Dysthymic disorder F34.1 [place] [address], [place] [address]- 4173 February, [facility] [address], [place] [address]- 7246 February, [place] [address], [place] [address]- 7543 February, Hypertension I10 and Weight gain R63.5 [facility] [id number] [place] [address] 88598- 2762 February, Major depressive disorder, recurrent, moderate F33.1 and Generalized anxiety disorder F41.1 [facility] [id number] [place] [address] 83668- 8725 February, ADHD (attention deficit hyperactivity disorder), combined type F90.2 ; Generalized anxiety disorder F41.1 and Dysthymic disorder F34.1 [facility] [id number] [place] [address] 29588- 5070 February, [facility] [address], [place] [address]- 6839 February, Asthma J45.909 ; Weight gain R63.5 ; Hypertension I10 ; Rheumatoid arthritis M06.9 and Chronic pain syndrome G89.4 [place] [address], [place] [address]- 0049 Jan, ADHD (attention deficit hyperactivity disorder), combined type F90.2 ; Generalized anxiety disorder F41.1 and Dysthymic disorder F34.1 [place] [address], [place] [address]- 5551 Dec, ADHD (attention deficit hyperactivity disorder), combined type F90.2 ; Generalized anxiety disorder F41.1 and Dysthymic disorder F34.1 [place] [address], [place] [address]- 8770 Dec, [place] [address], [place] [address]- 6862 Nov, [facility] [address], [place] [address]- 9251 Nov, [facility] [address], [place] [address]- 5270 Nov, [facility] [address], [place] [address]- 4636 Nov, [facility] [address] [place] [address] 71666- 0641 Oct, [facility] [address], [place] [address]- 6196 Oct, [facility] [address] [place] [address] 51692- 1105 Oct, [facility] [address], [place] [address]- 7745 Sep, [facility] [address], [place] [address]- 1018 Sep, [facility] [address], [place] [address]- 9067 Sep, Agoraphobia with panic disorder F40.01 ; Attention-deficit hyperactivity disorder, combined type F90.2 and Dysthymic disorder F34.1 [facility] [address], [place] [address]- 5457 Aug, [facility] [address], [place] [address]- 8754 Aug, [facility] [address], [place] [address]- 4550 Aug, [facility] [address], [place] [address]- 8407 Aug, Dysthymic disorder F34.1 ; Generalized anxiety disorder F41.1 and ADHD (attention deficit hyperactivity disorder), combined type F90.2 [facility] [id number] [place] [address] 02127- 3594 Aug, ADHD (attention deficit hyperactivity disorder), combined type F90.2 ; Generalized anxiety disorder F41.1 and Dysthymic disorder F34.1 [place] [id number] [place] [address] 86138- 7323 Jul, Urinary tract infection, site not specified N39.0 ; Hypotension, unspecified I95.9 and Breast cancer screening Z12.39 [place] [address] 88469- 7272 Jul, [facility] [address] 34722- 3243 Jul, [place] [address] 07833- 6828 Jul, Urinary tract infection, site not specified N39.0 ; Nausea R11.0 ; Gastroenteritis K52.9 ; Renal failure N19 and Other hypotension I95.89 [place] [id number] [place] [address] 11146- 8406 Jul, [facility] [address] 37233- 5101 Jul, [facility] [id number] [place] [address] 94392- 3514 Jul, [facility] [id number] [place] [address] 13178- 8368 Jun, [facility] [id number] [place] [address] 32527- 3892 Jun, Major depression in partial remission 296.25 ; Generalized anxiety disorder 300.02 and ADHD, predominantly inattentive type 314.01 [facility] [address] 58077- 5538 May, [facility] [id number] [place] [address] 53097- 8353 Apr, Major depressive disorder, recurrent episode, severe, without mention of psychotic behavior 296.33 ; Agoraphobia with panic disorder 300.21 and Generalized anxiety disorder 300.02 [place] [id number] [place] [address] 24283- 3469 Apr, ADHD (attention deficit hyperactivity disorder), combined type 314.01 ; Generalized anxiety disorder 300.02 and Dysthymic disorder 300.4 [place] [id number] [place] [address] 83494- 7481 Apr, CAD (coronary artery disease) 414.00 ; HTN (hypertension) 401.9 and Tobacco use 305.1 [place] [address] [id number] [place] [address] 46835- 0729 Apr, [place] [id number] [place] [address] 03694- 4326 Mar, ADHD (attention deficit hyperactivity disorder), combined type 314.01 ; Generalized anxiety disorder 300.02 ; Dysthymic disorder 300.4 ; No condition on [place] V71.09 ; Rheumatoid arthritis 714.0 ; Incontinence 788.30 ; Irritable bowel syndrome 564.1 ; Osteoporosis 733.00 and Chronic pain 338.29 [place] [id number] [place] [address] [id number] 2431 Mar, Agoraphobia with panic disorder 300.21 and Major depressive disorder, recurrent episode, moderate 296.32 [place] [id number] [place] [address] [phone] Mar, [facility] [id number] [place] [address] [id number] February, [place] [id number] [place] [address] [id number] February, Agoraphobia with panic disorder 300.21 and Major depressive disorder, recurrent episode, moderate 296.32 [place] [address] [address] [place] [id number] [place] [address] February, [place] [address] [address] 14 Jan, 2015 [facility] [place] [facility] [address] [id number] [place] [address] Jan, [facility] [place] [facility] [address] [id number] [place] [address] 24 Dec, 2014 [facility] [place] [facility] [address] [facility] [id number] [place] [address] 0148 Dec, [facility] [place] [facility] [address] [id number] [place] [address]- 6555 Dec, [facility] [place] [facility] [address] [id number] [place] [address]- 0389 Dec, [facility] [place] [facility] [address] [facility] [id number] [place] [address]- 1919 Dec, [facility] [place] [facility] [address] [facility] [id number] [place] [address]- 5292 Dec, [facility] [place] [facility] [address] [facility] [id number] [place] [address]- 4628 Nov, [facility] [place] [facility] [address] [facility] [id number] [place] [address]- 4376 Nov, 2014 [facility] [place] [facility] [address] [facility] [id number] [place] [address]- 5994 Nov, 2014 [facility] [place] [facility] [address] [facility] [id number] [place] [address]- 4642 Nov, 2014 [facility] [place] [facility] [address] [facility] [id number] [place] [address]- 1397 Nov, 2014 [facility] [place] [facility] [address] [facility] [id number] [place] [address]- 2219 17 Nov, 2014 [facility] [place] [facility] [address] [facility] [id number] [place] [address]- 1582 10 Nov, 2014 [facility] [place] [facility] [address] [facility] [id number] [address] 10 Fe2014 [facility] [place] [facility] [address] [id number] [place] [address]- 1619 Oct, [facility] [place] [facility] [address] [id number] [place] [address]- 6662 Oct, [facility] [place] [facility] [address] [id number] [place] [address]- 2185 Oct, [facility] [place] [facility] [address] [id number] [place] [address]- 3690 Oct, [facility] [place] [facility] [address] [id number] [place] [address]- 8263 Oct, [facility] [place] [facility] [address] [id number] [place] [address]- 7157 Oct, [facility] [place] [facility] [address] [id number] [place] [address]- 5313 Sep, [facility] [place] [facility] [address] [id number] [place] [address]- 9321 Sep, [facility] [place] [facility] [address] [id number] [place] [address]- 7862 Sep, [facility] [place] [facility] [address] [id number] [place] [address]- 3856 Sep, [facility] [place] [facility] [address] [id number] [place] [address]- 6615 Sep, [facility] [place] [facility] [address] [id number] [place] [address]- 0427 Sep, [facility] [place] [facility] [address] [id number] [place] [address]- 1496 Sep, [facility] [place] [facility] [address] [id number] [place] [address]- 3098 Aug, [facility] [place] [facility] [address] [id number] [place] [address]- 1615 Aug, [facility] [place] [facility] [address] [id number] [place] [address]- 3566 Aug, [facility] [place] [facility] [address] [id number] [place] [address]- 8920 Aug, [facility] [place] [facility] [address] [id number] [place] [address]- 9045 Aug, [facility] [place] [facility] [address] [id number] [place] [address]- 3966 Aug, [facility] [place] [facility] [address] [id number] [place] [address]- 1697 Jul, [facility] [place] [facility] [address] [id number] [place] [address]- 0946 Jul, [facility] [place] [facility] [address] [id number] [place] [address]- 8493 Jul, [facility] [place] [facility] [address] [id number] [place] [address]- 7330 Jul, [facility] [place] [facility] [address] [id number] [place] [address]- 4801 Jul, [facility] [place] [facility] [address] [id number] [place] [address]- 8990 Jul, [facility] [place] [facility] [address] [id number] [place] [address]- 0972 Jun, [facility] [place] [facility] [address] [id number] [place] [address]- 3600 Jun, [facility] [place] [facility] [address] [id number], [place] [address]- 4478 May, [facility] [place] [facility] [address] [id number] [place] [address]- 4014 May, [facility] [place] [facility] [address] [id number] [place] [address]- 6718 Apr, [facility] [place] [facility] [address] [id number] [place] [address]- 254 Apr, [facility] [place] [facility] [address] [id number] [place] [address]- 2212 Apr, [facility] [address] [id number] [place] [address]- 2141 Apr, [facility] [place] [facility] [address] [id number] [place] [address]- 3103 Mar, [facility] [place] [facility] [address] [id number] [place] [address]- 0602 Mar, [facility] [place] [facility] [address] [id number] [place] [address]- 9101 Mar, [facility] [address] [id number] [place] [address]- 5580 Mar, [facility] [address] [id number] [place] [address]- 7376 February, [facility] [place] [facility] [address] [id number] [place] [address]- 7017 February, [facility] [address] [id number] [place] [address]- 9089 February, [facility] [place] [facility] [address] [id number] [place] [address]- 2912 February, [facility] [address] [id number] [place] [address]- 7335 February, [facility] [place] [facility] [address] [id number] [place] [address]- 0232 February, [facility] [place] [facility] [address] [id number] [place] [address]- 2291 Jan, [facility] [place] [facility] [address] [id number] [place] [address]- 0935 Jan, [facility] [place] [facility] [address] [id number] [place] [address]- 6893 Dec, [facility] [place] [facility] [address] [id number] [place] [address]- 3005 Dec, [facility] [address] [id number] [place] [address]- 5221 Nov, [facility] [place] [facility] [address] [id number] [place] [address]- 4046 Nov, [facility] [place] [facility] [address] [id number] [place] [address]- 8295 Oct, [facility] [place] [facility] [address] [id number] [place] [address]- 8075 Oct, [facility] [place] [facility] [address] [id number] [place] [address]- 0018 Oct, [facility] [place] [facility] [address] [id number] [place] [address]- 7929 Oct, [facility] [place] [facility] [address] [id number] [place] [address]- 7507 Sep, [facility] [place] [facility] [address] [id number] [place] [address]- 1455 Sep, [facility] [place] [facility] [address] [id number] [place] [address]- 7883 Sep, [facility] [place] [facility] [address] [id number] [place] [address]- 2140 Sep, [facility] [place] [facility] [address] [id number] [place] [address]- 0523 Sep, [facility] [place] [facility] [address] [id number], [place] [address]- 9926 Sep, [facility] [place] [facility] [address] [id number] [place] [address]- 5356 Sep, [facility] [place] [facility] [address] [id number] [place] [address]- 4916 Sep, [facility] [place] [facility] [address] [id number] [place] [address]- 9296 Aug, [facility] [place] [facility] [address] [id number] [place] [address]- 6030 Aug, [facility] [place] [facility] [address] [id number] [place] [address]- 8680 Aug, [facility] [place] [facility] [address] [id number] [place] [address]- 2879 Aug, [facility] [place] [facility] [address] [id number] [place] [address]- 9919 Aug, [facility] [place] [facility] [address] [id number] [place] [address]- 7875 Aug, [facility] [place] [facility] [address] [id number] [place] [address]- 1172 Aug, [facility] [place] [facility] [address] [id number] [place] [address]- 4995 Aug, [facility] [place] [facility] [address] [id number] [place] [address]- 6376 Aug, [facility] [place] [facility] [address] [id number] [place] [address]- 0370 Jul, [facility] [place] [facility] [address] [id number] [place] [address]- 2945 Jun, [facility] [place] [facility] [address] [id number] [place] [address]- 7597 May, [facility] [place] [facility] [address] [id number] [place] [address]- 8635 May, [facility] [place] [facility] [address] [id number], [place] [address]- 8991 May, [facility] [place] [facility] [address] [id number] [place] [address]- 3395 Apr, [facility] [place] [facility] [address] [id number] [place] [address]- 0945 Mar, [facility] [place] [facility] [address] [id number] [place] [address]- 8976 February, [facility] [place] [facility] [address] [id number] [place] [address]- 7549 17 Oct, 2012 [facility] [place] [facility] [address] [id number] [place] [address]- 5370 16 Oct, 2012 [facility] [place] [facility] [address] [id number] [place] [address]- 9545 14 Oct, 2012 [facility] [place] [facility] [address] [id number] [place] [address]- 6010 Oct, [facility] [place] [facility] [address] [id number] [place] [address]- 4366 Oct, [facility] [place] [facility] [address] [id number] [place] [address]- 2101 Oct, [facility] [place] [facility] [address] [id number] [place] [address]- 0709 Sep, [facility] [place] [facility] [address] [id number] [place] [address]- 3911 Sep, [facility] [place] [facility] [address] [id number] [place] [address]- 0112 Aug, [facility] [place] [facility] [address] [id number] [place] [address]- 8836 Aug, [facility] [place] [facility] [address] [id number] [place] [address]- 2247 Jul, [facility] [place] [facility] [address] [id number] [place] [address]- 4333 Jul, [facility] [place] [facility] [address] [id number] [place] [address]- 2850 Jul, [facility] [place] [facility] [address] [id number] [place] [address]- 7802 Jul, [facility] [place] [facility] [address] [id number] [place] [address]- 2584 Jul, [facility] [place] [facility] [address] [id number] [place] [address]- 0037 Jul, [facility] [place] [facility] [address] [id number] [place] [address]- 5713 Jul, [facility] [place] [facility] [address] [id number] [place] [address]- 1568 Jul, [facility] [place] [facility] [address] [id number] [place] [address]- 4545 16 Jun, 2012 [facility] [place] [facility] [address] [id number] [place] [address]- 4989 Jun, [facility] [place] [facility] [address] [id number] [place] [address]- 4516 May, [facility] [place] [facility] [address] [id number] [place] [address]- 9519 Apr, [facility] [place] [facility] [address] [id number] [place] [address]- 0755 Mar, [facility] [place] [facility] [address] [id number] [place] [address]- 7251 Mar, [facility] [place] [facility] [address] [id number] [place] [address]- 0936 Mar, [facility] [place] [facility] [address] [id number] [place] [address]- 3368 Mar, [facility] [place] [facility] [address] [id number], [place] [address]- 2198 Jan, [facility] [place] [facility] [address] [id number], [place] [address]- 5053 Nov, [facility] [place] [facility] [address] [id number] [place] [address]- 9458 Nov, [facility] [place] [facility] [address] [id number], [place] [address]- 3348 Nov, [facility] [place] [facility] [address] [id number] [place] [address]- 4108 Oct, [facility] [place] [facility] [id number], [place] [address]- 2546 Sep, [facility] [id number], [place] [address]- 8386 Sep, [facility] [id number], [place] [address]- 4906 Aug, [facility] [id number], [place] [address]- 3076 Aug, [facility] [id number], [place] [address]- 5936 Aug, [facility] [id number] [place] [address]- 4116 Aug, [facility] [id number], [place] [address]- 5736 Jul, [facility] [id number], [place] [address]- 2726 May, [facility] [id number], [place] [address]- 5725 Jan, [facility] [id number], [place] [address]- 9556 Nov, [facility] [id number], [place] [address]- 0539 Apr, [facility] [id number], [place] [address]- 2336 Dec, [facility] [id number], [place] [address]- 5375 Nov, IMMUNIZATIONS No Known Immunizations SOCIAL HISTORY Never Assessed REASON FOR VISIT only PLAN OF CARE VITAL SIGNS MEDICATIONS Unknown Medications RESULTS No Results PROCEDURES No Known procedures INSTRUCTIONS MEDICATIONS ADMINISTERED No Known Medications MEDICAL (GENERAL) HISTORY Type Description Date Medical History Cardiovascular opvxxpzt-KGN-Dfpouutm, 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 Mendoza Medical History Stress test 03/07/13-Dr. Kelly Dietrich normal Medical History Hypertension Medical History Asthma Medical History Gastrointestinal Disorder--IBS, GERD, Hx of fatty liver Medical History Hernia 1978 Medical History Cervical dysplasia 02/16-Pap LGSIL/Hixson-mild dysplasia Medical History Hyperlipidemia Medical History Rheumatoid [...] Hospitalization History Symptomatic Hypokalemia/Nause-Via [facility] 05/13/16 Hospitalization History Stroke 05/03/2017 Hospitalization History stroke 08/24/2017--09/01/2017
--- OUTSIDE RECORDS SUMMARY | 2018-06-12 15:57 | XMS REPORT ---
Author Author LORI SNOWDEN Organization [facility] Address [address] [place] [address] Care Team Providers Care Milk Vendor Name Role Phone LORI SNOWDEN Unavailable PROBLEMS Type Condition ICD9-CM Code KWQ06-NM Code Onset Dates Condition Status SNOMED Code Problem ADHD (attention deficit hyperactivity disorder), combined type F90.2 Active 53632551 Problem Other assisted (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 Active 501693543 Problem Generalized anxiety disorder F41.1 Active 09309734 Problem Cerebrovascular accident (CVA), unspecified mechanism I63.9 Active 723067217 Problem Asthma J45.909 Active 346440894 Problem Dysthymic disorder F34.1 Active 03341716 Problem Rheumatoid arthritis involving multiple sites, unspecified rheumatoid factor presence M06.9 Active 134549783 Problem Sleep apnea in adult G47.30 Active 94924545 Problem Seasonal allergies J30.2 Active 849273218 Problem Mild episode of recurrent major depressive disorder F33.0 Active 460931864 Problem Rheumatoid arthritis M06.9 Active 48022171 Problem Chronic pain syndrome G89.4 Active 123205826 Problem Hypertension I10 Active 24822392 Problem Anxiety F41.9 Active 28703297 Problem Gastroesophageal reflux disease with esophagitis K21.0 Active 287427992 Problem Panic attacks F41.0 Active 676526439 Problem Irritable bowel syndrome with diarrhea K58.0 Active 781678996 Problem Mixed hyperlipidemia E78.2 Active 942960217 Problem Hyperinsulinemia E16.1 Active 51086417 Problem Weight gain R63.5 Active 3716295 Problem Arteriosclerotic coronary artery disease I25.10 Active 30321513 Problem Chronic obstructive pulmonary disease, unspecified J44.9 Active [id number] Problem Obstructive sleep apnea G47.33 Active 79579082 Problem Neuropathy G62.9 Active 570250905 Problem Other insomnia G47.09 Active 338268214 ALLERGIES No Information ENCOUNTERS Encounter Location Date Diagnosis [facility] [id number] [place] [address] 28989- 0570 May, [facility] [id number] [place] [address] 94486- 2530 Apr, Cough R05 [facility] [id number] [place] [address] 29236- 8715 Mar, Mild episode of recurrent major depressive disorder F33.0 [facility] [id number] [place] [address] 56862- 1823 Mar, Mild episode of recurrent major depressive disorder F33.0 and Generalized anxiety disorder F41.1 [facility] [id number] [place] [address] 51192- 9427 Mar, Seasonal allergies J30.2 [facility] [id number] [place] [address] 64869- 3110 Mar, Seasonal allergies J30.2 [facility] [id number] [place] [address] 63766- 0496 February, Generalized anxiety disorder F41.1 [facility] [id number] [place] [address] 36183 -0942 February, Cough R05 and Seasonal allergies J30.2 [facility] [address] [address] 2657 February, Generalized anxiety disorder F41.1 and Mild episode of recurrent major depressive disorder F33.0 [facility] [id number] [place] [address] 68325- 0057 February, 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 ; Anxiety F41.9 ; Panic attacks F41.0 and Irritable bowel syndrome with diarrhea K58.0 [facility] [address] [address] 8764 February, [facility] [id number] [place] [address] 21593- 7316 Jan, Mixed hyperlipidemia E78.2 [facility] [id number] [place] [address] 7201 Jan, [facility] [id number] [place] [address] 18287- 5959 Jan, [facility] [id number] [place] [address] 31757- 8651 Jan, [facility] [id number] [place] [address] 96723- 4740 Jan, [facility] [id number] [place] [address], [place] [address]- 0698 Dec, [facility] [id number] [place] [address] 92049- 3058 Dec, [facility] [id number] [place] [address] 51261- 9444 Dec, [facility] [id number] [place] [address] 25068- 0484 Nov, Dysthymic disorder F34.1 [facility] [id number] [place] [address] 63443- 3904 Oct, [facility] [address] [address]- 4406 Oct, [facility] [id number] [place] [address] 55827- 9576 Oct, [facility] [address] [address]- 5058 Oct, Diarrhea, unspecified type R19.7 and Dysuria R30.0 [facility] [address] 7025 Oct, [facility] [address] [address]- 5563 Sep, [facility] [id number] [place] [address] 01995- 0361 Sep, [facility] [id number] [place] [address] 99604- 9164 Sep, Anxiety F41.9 [facility] [id number] [place] [address] 16092- 0335 Sep, Cerebrovascular accident (CVA), unspecified mechanism I63.9 ; Mixed hyperlipidemia E78.2 ; Gastroesophageal reflux disease with esophagitis K21.0 and Anxiety F41.9 [facility] [id number] [place] [address] 80313- 1457 Sep, [facility] [address] 95455- 8845 Aug, Chronic obstructive pulmonary disease, unspecified J44.9 ; Asthma J45.909 ; Nausea R11.0 ; Dysthymic disorder F34.1 ; Cerebrovascular accident (CVA), unspecified mechanism I63.9 and Rheumatoid arthritis M06.9 [facility] [id number] [place] [address] 43746- 4553 Aug, Nausea R11.0 ; Encounter for immunization Z23 ; Sleep apnea in adult G47.30 ; Rheumatoid arthritis involving multiple sites, unspecified rheumatoid factor presence M06.9 ; Generalized anxiety disorder F41.1 ; Dysthymic disorder F34.1 and Asthma J45.909 [facility] [id number] [place] [address] 01780- 5795 Jul, [facility] [id number] [place] [address] 51938- 1950 May, ADHD (attention deficit hyperactivity disorder), combined type F90.2 ; Generalized anxiety disorder F41.1 and Persistent depressive disorder F34.1 [facility] [id number] [place] [address] 87106- 3486 May, Cerebrovascular accident (CVA), unspecified mechanism I63.9 [facility] [id number] [place] [address] 32898- 7509 Apr, Mixed hyperlipidemia E78.2 and Cerebrovascular accident (CVA ), unspecified mechanism I63.9 [facility] [address] 06679- 1385 Apr, Generalized anxiety disorder F41.1 [facility] [id number] [place] [address] 39309- 4452 Apr, Bronchitis J40 and Tobacco use Z72.0 [facility] [address] 93779- 0744 Apr, Mixed hyperlipidemia E78.2 [facility] [address] 70707- 9140 Apr, Other assisted (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 [facility] [address] 96187- 8684 Apr, [facility] [address] 40419- 7976 Apr, Generalized anxiety disorder F41.1 [facility] [address] 64975- 9101 Apr, Obstructive sleep apnea G47.33 and Hyperinsulinemia E16.1 [place] [id number] [place] [address] 69008- 6057 Apr, ADHD (attention deficit hyperactivity disorder), combined type F90.2 ; Generalized anxiety disorder F41.1 and Persistent depressive disorder F34.1 [facility] [id number] [place] [address] 44959- 6014 Mar, [facility] [address] 25304- 8905 Mar, Generalized anxiety disorder F41.1 [facility] [id number] [place] [address] 93327- 5414 Mar, Tarsal tunnel syndrome of both lower extremities G57.53 [facility] [address] 56833- 7563 February, [facility] [id number] [place] [address] 24257- 4259 February, [facility] [id number] [place] [address] 99357- 0816 February, Asthma J45.909 [facility] [id number] [place] [address] 65717- 0440 February, Generalized anxiety disorder F41.1 [facility] [address] 61225- 8918 February, Hypoxemia R09.02 ; Hyperglycemia R73.9 ; Rheumatoid arthritis M06.9 and Generalized anxiety disorder F41.1 [facility] [id number] [place] [address] 43849- 6955 February, [facility] [address] 69235- 0896 Jan, Chronic obstructive pulmonary disease, unspecified J44.9 [facility] [id number] [place] [address] 35277- 7400 Jan, Chronic pain syndrome G89.4 [facility] [id number] [place] [address] 99846- 3117 Jan, Hypoxemia R09.02 [facility] [id number] [place] [address] 79407- 4330 Jan, [facility] [id number] [place] [address] 72681- 9589 Jan, Chronic obstructive pulmonary disease, unspecified J44.9 ; Hypoxemia R09.02 ; Other insomnia G47.09 and Left anterior shoulder pain M25.512 [facility] [id number] [place] [address] 19785- 4779 07 Jan, 2017 Numbness in feet R20.0 and Neuropathy G62.9 [facility] [address] 05440- 4874 Jan, [facility] [id number] [place] [address] 49964- 5284 Dec, Acute pain of left shoulder M25.512 [facility] [id number] [place] [address] 922840- 9746 Dec, Acute pain of left shoulder M25.512 [facility] [id number] [place] [address] 65263- 7113 Dec, Generalized anxiety disorder F41.1 [facility] [id number] [place] [address] 89918- 6789 Dec, Generalized anxiety disorder F41.1 [facility] [id number] [place] [address] 39829- 4667 Nov, ADHD (attention deficit hyperactivity disorder), combined type F90.2 ; Generalized anxiety disorder F41.1 and Persistent depressive disorder F34.1 [facility] [id number] [place] [address] 36879- 0508 Nov, Acute pain of left shoulder M25.512 [facility] [id number] [place] [address] 12418- 0864 Nov, ADHD (attention deficit hyperactivity disorder), combined type F90.2 ; Generalized anxiety disorder F41.1 and Persistent depressive disorder F34.1 [facility] [id number] [place] [address] 92247- 6873 Nov, Chronic pain syndrome G89.4 [facility] [id number] [place] [address] 33529- 6129 Nov, Chronic pain syndrome G89.4 [facility] [id number] [place] [address] 59454- 2521 Nov, Acute pain of left shoulder M25.512 [facility] [id number] [place] [address] 75039- 9488 Nov, Generalized anxiety disorder F41.1 [facility] [id number] [place] [address] 16496- 3242 Nov, Acute pain of left shoulder M25.512 [facility] [id number] [place] [address] 78979- 1535 Nov, ADHD (attention deficit hyperactivity disorder), combined type F90.2 ; Generalized anxiety disorder F41.1 and Persistent depressive disorder F34.1 [facility] [address] 50274- 3968 Nov, Acute pain of left shoulder M25.512 ; Generalized anxiety disorder F41.1 ; Chronic pain syndrome G89.4 ; Hyperinsulinemia E16.1 ; Pain of left foot M79.672 and Pain in right foot M79.671 [facility] [id number] [place] [address] 05378- 2087 Oct, ADHD (attention deficit hyperactivity disorder), combined type F90.2 ; Generalized anxiety disorder F41.1 and Dysthymic disorder F34.1 [facility] [id number] [place] [address] 36085- 6723 Sep, [facility] [id number] [place] [address] 53830- 4430 Sep, [facility] [id number] [place] [address] 60626- 8668 Sep, Routine gynecological examination V72.31 ; Cervical cancer screening Z12.4 ; Breast cancer screening Z12.39 ; Colon cancer screening Z12.11 ; Hypokalemia E87.6 ; Herpes simplex type 1 infection B00.9 and Abscess of right axilla L02.411 [facility] [address] 72565- 3549 Sep, [facility] [id number] [place] [address] 68008- 7467 Sep, ADHD (attention deficit hyperactivity disorder), combined type F90.2 ; Generalized anxiety disorder F41.1 and Dysthymic disorder F34.1 [facility] [id number] [place] [address] 98317- 1927 Aug, [facility] [address] 65592- 6678 Aug, [facility] [id number] [place] [address] 49662- 6077 Aug, Generalized anxiety disorder F41.1 [facility] [id number] [place] [address] 38115- 1859 Aug, ADHD (attention deficit hyperactivity disorder), combined type F90.2 ; Generalized anxiety disorder F41.1 and Dysthymic disorder F34.1 [facility] [id number] [place] [address] 10663- 0400 Jul, Chronic pain syndrome G89.4 ; Hypertension I10 ; Hypokalemia E87.6 ; Asthma J45.909 and Nausea R11.0 [facility] [id number] [place] [address] 96494- 8238 Jul, [facility] [id number] [place] [address] 65748- 2714 Jul, Asthma J45.909 [facility] [id number] [place] [address] 08385- 1991 Jul, ADHD (attention deficit hyperactivity disorder), combined type F90.2 ; Generalized anxiety disorder F41.1 and Dysthymic disorder F34.1 [facility] [id number] [place] [address] 42486- 6992 Jul, [facility] [id number] [place] [address] 77003- 5172 Jul, Hypertension I10 ; Arteriosclerotic coronary artery disease I25.10 ; Mixed hyperlipidemia E78.2 ; 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 and Hyperglycemia R73.9 [facility] [id number] [place] [address] 58812- 4549 Jun, Hypokalemia E87.6 and Hyperglycemia R73.9 [facility] [address] 29536- 9303 14 Jun, 2016 [facility] [address] [address] 559424- 5310 Jun, Abnormal kidney function N28.9 [facility] [address] 09417- 9326 Jun, [facility] [address] 05950- 0184 Jun, ADHD (attention deficit hyperactivity disorder), combined type F90.2 ; Generalized anxiety disorder F41.1 and Dysthymic disorder F34.1 [facility] [address] 66535- 5401 Jun, Generalized anxiety disorder F41.1 and Dysthymic disorder F34.1 [facility] [address] 12747- 5549 Jun, Hypokalemia E87.6 [facility] [address] [address]59427- 8858 May, Hypokalemia E87.6 ; Vertigo R42 and Hyperinsulinemia E16.1 [facility] [address] 31270- 4614 May, [facility] [address] [address] [address]59423- 6127 May, Abnormal kidney function N28.9 ; Hyperinsulinemia E16.1 and Nausea R11.[address] 70879- 7176 May, Hypokalemia E87.6 ; Nausea R11.0 ; Epigastric pain R10.13 ; Dehydration E86.0 ; Diaphoresis R61 and Right arm pain M79.601 [facility] [address] [address]- 7532 May, [facility] [id number] [place] [address] 54228- 5197 May, Hypokalemia E87.6 [facility] [id number] [place] [address] 46585- 6388 May, Hypokalemia E87.6 [facility] [id number] [place] [address] 14450- 7160 Apr, [facility] [id number] [place] [address] 53400- 8194 Apr, ADHD (attention deficit hyperactivity disorder), combined type F90.2 ; Generalized anxiety disorder F41.1 and Dysthymic disorder F34.1 [facility] [id number] [place] [address] 63225- 2106 Apr, Right arm pain M79.601 and Hyperinsulinemia E16.1 [facility] [id number] [place] [address] 54861- 9528 Mar, [facility] [id number] [place] [address] 85721- 1828 Mar, [facility] [id number] [place] [address] 39186- 5098 Mar, Hyperinsulinemia E16.1 ; Hyperlipidemia, unspecified hyperlipidemia type E78.5 ; Central venous catheter in place Z78.9 ; Generalized anxiety disorder F41.1 and Urinary tract infection, site not specified N39.0 [facility] [id number] [place] [address] 14621- 0798 Mar, ADHD (attention deficit hyperactivity disorder), combined type F90.2 ; Generalized anxiety disorder F41.1 and Dysthymic disorder F34.1 [facility] [id number] [place] [address] 77378- 1586 February, ADHD (attention deficit hyperactivity disorder), combined type F90.2 ; Generalized anxiety disorder F41.1 and Dysthymic disorder F34.1 [facility] [address] [address]- 3191 February, [facility] [address], [place] [address]- 9762 February, [facility] [address], [place] [address]- 1407 February, Hypertension I10 and Weight gain R63.5 [facility] [id number] [place] [address] 49105- 1118 February, Major depressive disorder, recurrent, moderate F33.1 and Generalized anxiety disorder F41.1 [facility] [id number] [place] [address] 40422- 8735 February, ADHD (attention deficit hyperactivity disorder), combined type F90.2 ; Generalized anxiety disorder F41.1 and Dysthymic disorder F34.1 [facility] [id number] [place] [address] 68790- 9764 February, [facility] [address] [address]- 7972 February, Asthma J45.909 ; Weight gain R63.5 ; Hypertension I10 ; Rheumatoid arthritis M06.9 and Chronic pain syndrome G89.4 [facility] [address], [place] [address]- 2512 Jan, ADHD (attention deficit hyperactivity disorder), combined type F90.2 ; Generalized anxiety disorder F41.1 and Dysthymic disorder F34.1 [facility] [address], [place] [address]- 7049 Dec, ADHD (attention deficit hyperactivity disorder), combined type F90.2 ; Generalized anxiety disorder F41.1 and Dysthymic disorder F34.1 [facility] [address], [place] [address]- 7012 Dec, [facility] [address], [place] [address]- 5091 Nov, [facility] [address], [place] [address]- 0505 Nov, [facility] [address], [place] [address]- 3999 Nov, [facility] [address], [place] [address]- 4327 Nov, [facility] [id number] [place] [address] 11934- 4690 Oct, [facility] [address], [place] [address]- 0135 Oct, [facility] [id number] [place] [address] 02751- 1239 Oct, [facility] [address], [place] [address]- 5874 Sep, [facility] [address], [place] [address]- 2492 Sep, [facility] [address], [place] [address]- 1733 Sep, Agoraphobia with panic disorder F40.01 ; Attention-deficit hyperactivity disorder, combined type F90.2 and Dysthymic disorder F34.1 [facility] [address], [place] [address]- 7804 Aug, [facility] [address] [address]- 3353 Aug, [facility] [address], [place] [address]- 1488 Aug, [facility] [address], [place] [address]- 7469 Aug, Dysthymic disorder F34.1 ; Generalized anxiety disorder F41.1 and ADHD (attention deficit hyperactivity disorder), combined type F90.2 [facility] [id number] [place] [address] 04981- 4508 Aug, ADHD (attention deficit hyperactivity disorder), combined type F90.2 ; Generalized anxiety disorder F41.1 and Dysthymic disorder F34.1 [facility] [id number] [place] [address] 80766- 8071 Jul, Urinary tract infection, site not specified N39.0 ; Hypotension, unspecified I95.9 and Breast cancer screening Z12.39 [facility] [address] 81617- 3967 Jul, [facility] [address] 37556- 2781 Jul, [facility] [facility] [address] 49124- 5318 Jul, Urinary tract infection, site not specified N39.0 ; Nausea R11.0 ; Gastroenteritis K52.9 ; Renal failure N19 and Other hypotension I95.89 [facility] [id number] [place] [address] 20191- 8894 Jul, [facility] [address] 52359- 0918 Jul, [facility] [id number] [place] [address] 82989- 7030 Jul, [facility] [id number] [place] [address] 98036- 9155 Jun, [facility] [id number] [place] [address] 52706- 8301 Jun, Major depression in partial remission 296.25 ; Generalized anxiety disorder 300.02 and ADHD, predominantly inattentive type 314.01 [facility] [address] 13910- 6[address] May, [facility] [id number] [place] [address] 45347- 0629 Apr, Major depressive disorder, recurrent episode, severe, without mention of psychotic behavior 296.33 ; Agoraphobia with panic disorder 300.21 and Generalized anxiety disorder 300.02 [place] [id number] [place] [address] 94427- 7989 Apr, ADHD (attention deficit hyperactivity disorder), combined type 314.01 ; Generalized anxiety disorder 300.02 and Dysthymic disorder 300.4 [place] [id number] [place] [address] 37408- 1537 Apr, CAD (coronary artery disease) 414.00 ; HTN (hypertension) 401.9 and Tobacco use 305.1 [place] [id number] [place] [address] 08335- 0408 Apr, [place] [id number] [place] [address] 39426- 7284 Mar, ADHD (attention deficit hyperactivity disorder), combined type 314.01 ; Generalized anxiety disorder 300.02 ; Dysthymic disorder 300.4 ; No condition on [place] II V71.09 ; Rheumatoid arthritis 714.0 ; Incontinence 788.30 ; Irritable bowel syndrome 564.1 ; Osteoporosis 733.00 and Chronic pain 338.29 [place] [id number] [place] [address] 29738- 1016 Mar, Agoraphobia with panic disorder 300.21 and Major depressive disorder, recurrent episode, moderate 296.32 [place] [id number] [place] [address] 32806- 3180 Mar, [facility] [id number] [place] [address] 20801- 0675 February, [place] [id number] [place] [address] 54398- 2280 February, Agoraphobia with panic disorder 300.21 and Major depressive disorder, recurrent episode, moderate 296.32 [place] [id number] [place] [address] 18020- 8270 February, [place] [address] [address] 14 Jan, 2015 [facility] [place] [facility] [address] [id number] [place] [address] 34[address] Jan, [facility] [place] [facility] [address] [id number] [place] [address] 5704 24 Dec, 2014 [facility] [place] [facility] [address] [facility] [id number] [place] [address]- 5335 Dec, [facility] [place] [facility] [address] [id number] [place] [address]- 6334 Dec, [facility] [place] [facility] [address] [id number] [place] [address]- 7582 Dec, [facility] [place] [facility] [address] [facility] [id number] [place] [address]- 3648 Dec, [facility] [place] [facility] [address] [facility] [id number] [place] [address]- 4377 Dec, [facility] [place] [facility] [address] [facility] [id number] [place] [address]- 7185 Nov, [facility] [place] [facility] [address] [facility] [id number] [place] [address]- 5851 Nov, 2014 [facility] [place] [facility] [address] [facility] [id number] [place] [address]- 2729 Nov, 2014 [facility] [place] [facility] [address] [facility] [id number] [place] [address]- 6127 Nov, 2014 [facility] [place] [facility] [address] [facility] [id number] [place] [address]- 9014 Nov, 2014 [facility] [place] [facility] [address] [facility] [id number] [place] [address]- 0741 17 Nov, 2014 [facility] [place] [facility] [address] [facility] [id number] [place] [address]- 0626 10 Nov, 2014 [facility] [place] [facility] [address] [facility] [id number] [address] 10 Fe2014 [facility] [place] [facility] [address] [id number] [place] [address]- 3700 Oct, [facility] [place] [facility] [address] [id number] [place] [address]- 6017 Oct, [facility] [place] [facility] [address] [id number] [place] [address]- 0550 Oct, [facility] [place] [facility] [address] [id number] [place] [address]- 2108 Oct, [facility] [place] [facility] [address] [id number] [place] [address]- 2722 Oct, [facility] [place] [facility] [address] [id number] [place] [address]- 2656 Oct, [facility] [place] [facility] [address] [id number] [place] [address]- 8488 Sep, [facility] [place] [facility] [address] [id number] [place] [address]- 5159 Sep, [facility] [place] [facility] [address] [id number] [place] [address]- 6441 Sep, [facility] [place] [facility] [address] [id number] [place] [address]- 1865 Sep, [facility] [place] [facility] [address] [id number] [place] [address]- 6319 Sep, [facility] [place] [facility] [address] [id number] [place] [address]- 2580 Sep, [facility] [place] [facility] [address] [id number] [place] [address]- 5516 Sep, [facility] [place] [facility] [address] [id number] [place] [address]- 2484 Aug, [facility] [place] [facility] [address] [id number] [place] [address]- 0397 Aug, [facility] [place] [facility] [address] [id number] [place] [address]- 5646 Aug, [facility] [place] [facility] [address] [id number] [place] [address]- 9487 Aug, [facility] [place] [facility] [address] [id number] [place] [address]- 1284 Aug, [facility] [place] [facility] [address] [id number] [place] [address]- 7300 Aug, [facility] [place] [facility] [address] [id number] [place] [address]- 2291 Jul, [facility] [place] [facility] [address] [id number] [place] [address]- 6129 Jul, [facility] [place] [facility] [address] [id number] [place] [address]- 1098 Jul, [facility] [place] [facility] [address] [id number] [place] [address]- 3444 Jul, [facility] [place] [facility] [address] [id number] [place] [address]- 0552 Jul, [facility] [place] [facility] [address] [id number] [place] [address]- 9270 Jul, [facility] [place] [facility] [address] [id number] [place] [address]- 6503 Jun, [facility] [place] [facility] [address] [id number] [place] [address]- 6985 Jun, [facility] [place] [facility] [address] [id number][place] [address]- 9661 May, [facility] [place] [facility] [address] [id number] [place] [address]- 3956 May, [facility] [place] [facility] [address] [id number] [place] [address]- 7492 Apr, [facility] [place] [facility] [address] [id number] [place] [address]- 2541 Apr, [facility] [place] [facility] [address] [id number] [place] [address]- 1386 Apr, [facility] [address] [id number] [place] [address]- 4755 Apr, [facility] [place] [facility] [address] [id number] [place] [address]- 9285 Mar, [facility] [place] [facility] [address] [id number] [place] [address]- 4190 Mar, [facility] [place] [facility] [address] [id number] [place] [address]- 6283 Mar, [facility] [address] [id number] [place] [address]- 8958 Mar, [facility] [address] [id number] [place] [address]- 5855 February, [facility] [place] [facility] [address] [id number] [place] [address]- 7568 February, [facility] [address] [id number] [place] [address]- 7992 February, [facility] [place] [facility] [address] [id number] [place] [address]- 5077 February, [facility] [address] [id number] [place] [address]- 2146 February, [facility] [place] [facility] [address] [id number] [place] [address]- 0424 February, [facility] [place] [facility] [address] [id number] [place] [address]- 2896 Jan, [facility] [place] [facility] [address] [id number] [place] [address]- 0968 Jan, [facility] [place] [facility] [address] [id number] [place] [address]- 1353 Dec, [facility] [place] [facility] [address] [id number] [place] [address]- 5723 Dec, [facility] [address] [id number] [place] [address]- 9249 Nov, [facility] [place] [facility] [address] [id number] [place] [address]- 1746 Nov, [facility] [place] [facility] [address] [id number] [place] [address]- 7189 Oct, [facility] [place] [facility] [address] [id number] [place] [address]- 9429 Oct, [facility] [place] [facility] [address] [id number] [place] [address]- 1931 Oct, [facility] [place] [facility] [address] [id number] [place] [address]- 2426 Oct, [facility] [place] [facility] [address] [id number] [place] [address]- 4600 Sep, [facility] [place] [facility] [address] [id number] [place] [address]- 5807 Sep, [facility] [place] [facility] [address] [id number] [place] [address]- 8364 Sep, [facility] [place] [facility] [address] [id number] [place] [address]- 8696 Sep, [facility] [place] [facility] [address] [id number] [place] [address]- 3732 Sep, [facility] [place] [facility] [address] [id number], [place] [address]- 5893 Sep, [facility] [place] [facility] [address] [id number] [place] [address]- 4756 Sep, [facility] [place] [facility] [address] [id number] [place] [address]- 8996 Sep, [facility] [place] [facility] [address] [id number] [place] [address]- 9126 Aug, [facility] [place] [facility] [address] [id number] [place] [address]- 9903 Aug, [facility] [place] [facility] [address] [id number] [place] [address]- 0034 Aug, [facility] [place] [facility] [address] [id number] [place] [address]- 2907 Aug, [facility] [place] [facility] [address] [id number] [place] [address]- 0973 Aug, [facility] [place] [facility] [address] [id number] [place] [address]- 4217 Aug, [facility] [place] [facility] [address] [id number] [place] [address]- 6341 Aug, [facility] [place] [facility] [address] [id number] [place] [address]- 4377 Aug, [facility] [place] [facility] [address] [id number] [place] [address]- 2987 Aug, [facility] [place] [facility] [address] [id number] [place] [address]- 0465 Jul, [facility] [place] [facility] [address] [id number] [place] [address]- 9068 Jun, [facility] [place] [facility] [address] [id number] [place] [address]- 7341 May, [facility] [place] [facility] [address] [id number] [place] [address]- 4600 May, [facility] [place] [facility] [address] [id number], [place] [address]- 7743 May, [facility] [place] [facility] [address] [id number] [place] [address]- 8037 Apr, [facility] [place] [facility] [address] [id number] [place] [address]- 7949 Mar, [facility] [place] [facility] [address] [id number] [place] [address]- 3521 February, [facility] [place] [facility] [address] [id number] [place] [address]- 5705 17 Oct, 2012 [facility] [place] [facility] [address] [id number] [place] [address]- 0740 16 Oct, 2012 [facility] [place] [facility] [address] [id number] [place] [address]- 5471 14 Oct, 2012 [facility] [place] [facility] [address] [id number] [place] [address]- 5899 Oct, [facility] [place] [facility] [address] [id number] [place] [address]- 0610 Oct, [facility] [place] [facility] [address] [id number] [place] [address]- 0634 Oct, [facility] [place] [facility] [address] [id number] [place] [address]- 5471 Sep, [facility] [place] [facility] [address] [id number] [place] [address]- 1867 Sep, [facility] [place] [facility] [address] [id number] [place] [address]- 6168 Aug, [facility] [place] [facility] [address] [id number] [place] [address]- 0315 Aug, [facility] [place] [facility] [address] [id number] [place] [address]- 9552 Jul, [facility] [place] [facility] [address] [id number] [place] [address]- 5400 Jul, [facility] [place] [facility] [address] [id number] [place] [address]- 6909 Jul, [facility] [place] [facility] [address] [id number] [place] [address]- 9505 Jul, [facility] [place] [facility] [address] [id number] [place] [address]- 6825 Jul, [facility] [place] [facility] [address] [id number] [place] [address]- 4837 Jul, [facility] [place] [facility] [address] [id number] [place] [address]- 0415 Jul, [facility] [place] [facility] [address] [id number] [place] [address]- 4261 Jul, [facility] [place] [facility] [address] [id number] [place] [address]- 4258 16 Jun, 2012 [facility] [place] [facility] [address] [id number] [place] [address]- 8475 Jun, [facility] [place] [facility] [address] [id number] [place] [address]- 7717 May, [facility] [place] [facility] [address] [id number] [place] [address]- 1903 Apr, [facility] [place] [facility] [address] [id number] [place] [address]- 1246 Mar, [facility] [place] [facility] [address] [id number] [place] [address]- 6071 Mar, [facility] [place] [facility] [address] [id number] [place] [address]- 8125 Mar, [facility] [place] [facility] [address] [id number] [place] [address]- 7726 Mar, [facility] [place] [facility] [address] [id number], [place] [address]- 8009 Jan, [facility] [place] [facility] [address] [id number], [place] [address]- 4552 Nov, [facility] [place] [facility] [address] [id number] [place] [address]- 5553 Nov, [facility] [place] [facility] [address] [id number], [place] [address]- 4210 Nov, [facility] [place] [facility] [address] [id number] [place] [address]- 2157 Oct, [facility] [place] [facility] [address], [place] [address] 2546 Sep, [facility] [address], [place] [address]- 4246 Sep, [facility] [address], [place] [address]- 0456 Aug, [facility] [id number] [place] [address] 47023- 8495 Aug, [facility] [address], [place] [address]- 2584 Aug, [facility] [id number] [place] [address] 97441- 2116 Aug, [facility] [address], [place] [address]- 6436 Jul, [facility] [id number] [place] [address] 11939- 4036 May, [facility] [address], [place] [address]- 7478 Jan, [facility] [address] [id number], [place] [address]- 5677 Nov, [facility] [address], [place] [address]- 9675 Apr, [facility] [address], [place] [address]- 3686 Dec, [facility] [address] [id number], [place] [address]- 8878 Nov, IMMUNIZATIONS No Known Immunizations SOCIAL HISTORY Never Assessed REASON FOR VISIT Controlled Med Refill/PRN PLAN OF CARE VITAL SIGNS MEDICATIONS Medication Instructions Dosage Frequency Start Date End Date Duration Status Xanax 0.5 MG Orally Twice a day 1 tablet as needed 12h 06 Sep, 2017 28 days Active RESULTS No Results PROCEDURES No Known procedures INSTRUCTIONS MEDICATIONS ADMINISTERED No Known Medications MEDICAL (GENERAL) HISTORY Type Description Date Medical History Cardiovascular vauvsbmt-IOC-Lyfzaewc, non-obstructive per [facility] ( 01/2011) Dr. Mendoza Medical History Stress test 03/07/13-Dr. Kelly Dietrich normal Medical History Hypertension Medical History Asthma Medical History Gastrointestinal Disorder--IBS, GERD, Hx of fatty liver Medical History Hernia 1979 Medical History Cervical dysplasia 02/16-Pap LGSIL/[place]-mild dysplasia Medical History Hyperlipidemia Medical History Rheumatoid [...] injury 07/10/15-07/11/2015 Hospitalization History Symptomatic Hypokalemia/Nause-[facility] 05/13/16 Hospitalization History Stroke 05/03/2017 Hospitalization History stroke 08/24/2017--09/01/2017
--- OUTSIDE RECORDS SUMMARY | 2018-06-12 15:58 | XMS REPORT ---
Author Author LORI SNOWDEN Organization [facility] Address [address] [place] [address] Care Team Providers Care [employer] Technician Name Role Phone LORI SNOWDEN Unavailable PROBLEMS Type Condition ICD9-CM Code GYS79-XD Code Onset Dates Condition Status SNOMED Code Problem ADHD (attention deficit hyperactivity disorder), combined type F90.2 Active 54972082 Problem Other custodial (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 Active 097366924 Problem Generalized anxiety disorder F41.1 Active 56518290 Problem Cerebrovascular accident (CVA), unspecified mechanism I63.9 Active 065688435 Problem Asthma J45.909 Active 958349295 Problem Dysthymic disorder F34.1 Active 41257699 Problem Rheumatoid arthritis involving multiple sites, unspecified rheumatoid factor presence M06.9 Active 223811340 Problem Sleep apnea in adult G47.30 Active 29613095 Problem Seasonal allergies J30.2 Active 602078630 Problem Mild episode of recurrent major depressive disorder F33.0 Active 772166010 Problem Rheumatoid arthritis M06.9 Active 16345020 Problem Chronic pain syndrome G89.4 Active 258504113 Problem Hypertension I10 Active 59746098 Problem Anxiety F41.9 Active 21800434 Problem Gastroesophageal reflux disease with esophagitis K21.0 Active 285903111 Problem Panic attacks F41.0 Active 996422091 Problem Irritable bowel syndrome with diarrhea K58.0 Active 236288969 Problem Mixed hyperlipidemia E78.2 Active 952888691 Problem Hyperinsulinemia E16.1 Active 21280416 Problem Weight gain R63.5 Active 2989104 Problem Arteriosclerotic coronary artery disease I25.10 Active 34488548 Problem Chronic obstructive pulmonary disease, unspecified J44.9 Active [id number] Problem Obstructive sleep apnea G47.33 Active 93599768 Problem Neuropathy G62.9 Active 842450632 Problem Other insomnia G47.09 Active 495685122 ALLERGIES No Information ENCOUNTERS Encounter Location Date Diagnosis [facility] [id number] [place] [address] 23002- 6090 May, [facility] [id number] [place] [address] 79250- 6302 Mar, Mild episode of recurrent major depressive disorder F33.0 [facility] [address] 9[address]77- 0812 Mar, Mild episode of recurrent major depressive disorder F33.0 and Generalized anxiety disorder F41.1 [facility] [address] 24411- 0118 Mar, Seasonal allergies J30.2 [facility] [address] 19104- 6231 Mar, Seasonal allergies J30.2 [facility] [address] 67351- 9762 February, Generalized anxiety disorder F41.1 [facility] [id number] [place] [address] 40907 -6216 February, Cough R05 and Seasonal allergies J30.2 [facility] [id number] [place] [address] 69954- 7082 February, Generalized anxiety disorder F41.1 and Mild episode of recurrent major depressive disorder F33.0 [facility] [id number] [place] [address] 13734- 3213 February, Other custodial (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 ; Anxiety F41.9 ; Panic attacks F41.0 and Irritable bowel syndrome with diarrhea K58.0 [facility] [id number] [place] [address] 44567- 3044 February, [facility] [id number] [place] [address] 19436- 4192 Jan, Mixed hyperlipidemia E78.2 [facility] [address] 10051- 7376 Jan, [facility] [address] [place] [address]- 8199 Jan, [facility] [id number] [place] [address], [place] [address]- 4076 Jan, [facility] [id number] [place] [address]- 6061 Jan, [facility] [id number] [place] [address], [place] [address]- 6074 Dec, [facility] [id number] [place] [address], [place] [address]- 7525 Dec, [facility] [id number] [place] [address] 15661- 0450 Dec, [facility] [id number] [place] [address] 638019- 8547 Nov, Dysthymic disorder F34.1 [facility] [address] [address]- 3243 Oct, [facility] [id number] [place] [address] 632636- 3687 Oct, [facility] [address], [place] [address]- 0200 Oct, [facility] [id number] [place] [address] 99385- 4752 Oct, Diarrhea, unspecified type R19.7 and Dysuria R30.0 [facility] [address] [address]- 5058 Oct, [facility] [id number] 0009 Sep, [facility] [address] 3190 Sep, [facility] [id number] [place] [address] 39332- 4126 Sep, Anxiety F41.9 [facility] [id number] [place] [address] 72408- 5710 Sep, Cerebrovascular accident (CVA), unspecified mechanism I63.9 ; Mixed hyperlipidemia E78.2 ; Gastroesophageal reflux disease with esophagitis K21.0 and Anxiety F41.9 [id number] [place] [address] 81486- 3527 Sep, [id number] [place] [address] 12190- 6913 Aug, Chronic obstructive pulmonary disease, unspecified J44.9 ; Asthma J45.909 ; Nausea R11.0 ; Dysthymic disorder F34.1 ; Cerebrovascular accident (CVA), unspecified mechanism I63.9 and Rheumatoid arthritis M06.9 [id number] [place] [address] 39875- 3578 Aug, Nausea R11.0 ; Encounter for immunization Z23 ; Sleep apnea in adult G47.30 ; Rheumatoid arthritis involving multiple sites, unspecified rheumatoid factor presence M06.9 ; Generalized anxiety disorder F41.1 ; Dysthymic disorder F34.1 and Asthma J45.909 [facility] [id number] [place] [address] 52280- 5072 Jul, [id number] [place] [address] 74678- 0837 May, ADHD (attention deficit hyperactivity disorder), combined type F90.2 ; Generalized anxiety disorder F41.1 and Persistent depressive disorder F34.1 [id number] [place] [address] 34628- 7035 May, Cerebrovascular accident (CVA), unspecified mechanism I63.9 [id number] [place] [address] 25125- 4792 Apr, Mixed hyperlipidemia E78.2 and Cerebrovascular accident (CVA ), unspecified mechanism I63.9 [id number] [place] [address] 42794- 2443 Apr, Generalized anxiety disorder F41.1 [facility] [address] 83012- 9746 Apr, Bronchitis J40 and Tobacco use Z72.0 [facility] [address] 09994- 7957 Apr, Mixed hyperlipidemia E78.2 [facility] [address] 92158- 1909 Apr, Other custodial (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 [address] [address] [address] 74399- 4137 Apr, [facility] [address] 32312- 5309 Apr, Generalized anxiety disorder F41.1 [facility] [address] 47176- 6770 Apr, Obstructive sleep apnea G47.33 and Hyperinsulinemia E16.1 [facility] [address] 74158- 1809 Apr, ADHD (attention deficit hyperactivity disorder), combined type F90.2 ; Generalized anxiety disorder F41.1 and Persistent depressive disorder F34.1 [facility] [id number] [place] [address] 95617- 8549 Mar, [facility] [id number] [place] [address] 57997- 9010 Mar, Generalized anxiety disorder F41.1 [facility] [address] 35878- 7100 Mar, Tarsal tunnel syndrome of both lower extremities G57.53 [facility] [id number] [place] [address] 78667- 5126 February, [facility] [address] 87970- 0895 February, [facility] [address], [place] [address]- 8536 February, Asthma J45.909 [facility] [id number] [place] [address] 46972- 5330 February, Generalized anxiety disorder F41.1 [facility] [id number] [place] [address] 81924- 2968 February, Hypoxemia R09.02 ; Hyperglycemia R73.9 ; Rheumatoid arthritis M06.9 and Generalized anxiety disorder F41.1 [facility] [id number] [place] [address] 04871- 3723 February, [facility] [id number] [place] [address] 81974- 3966 Jan, Chronic obstructive pulmonary disease, unspecified J44.9 [facility] [id number] [place] [address] 15567- 7370 Jan, Chronic pain syndrome G89.4 [facility] [id number] [place] [address] 91089- 6325 Jan, Hypoxemia R09.02 [facility] [id number] [place] [address] 37819- 8848 Jan, [facility] [id number] [place] [address] 74670- 3077 Jan, Chronic obstructive pulmonary disease, unspecified J44.9 ; Hypoxemia R09.02 ; Other insomnia G47.09 and Left anterior shoulder pain M25.512 [facility] [id number] [place] [address] 54404- 0936 Jan, Numbness in feet R20.0 and Neuropathy G62.9 [facility] [id number] [place] [address] 35966- 7031 Jan, [facility] [id number] [place] [address] 75446- 7406 Dec, Acute pain of left shoulder M25.512 [facility] [address], [place] [address]- 1038 Dec, Acute pain of left shoulder M25.512 [facility] [id number] [place] [address] 26871- 6336 Dec, Generalized anxiety disorder F41.1 [facility] [id number] [place] [address] 26980- 8566 Dec, Generalized anxiety disorder F41.1 [facility] [id number] [place] [address] 62590- 2131 Nov, ADHD (attention deficit hyperactivity disorder), combined type F90.2 ; Generalized anxiety disorder F41.1 and Persistent depressive disorder F34.1 [facility] [id number] [place] [address] 44578- 0834 Nov, Acute pain of left shoulder M25.512 [facility] [id number] [place] [address] 90196- 8499 Nov, ADHD (attention deficit hyperactivity disorder), combined type F90.2 ; Generalized anxiety disorder F41.1 and Persistent depressive disorder F34.1 [facility] [id number] [place] [address] 90739- 2791 Nov, Chronic pain syndrome G89.4 [facility] [id number] [place] [address] 28435 2546 Nov, Chronic pain syndrome G89.4 [facility] [id number] [place] [address] 47669- 4272 08 Nov, 2016 Acute pain of left shoulder M25.512 [facility] [id number] [place] [address] 33455- 9049 Nov, Generalized anxiety disorder F41.1 [facility] [id number] [place] [address] 77324- 4008 Nov, Acute pain of left shoulder M25.512 [facility] [id number] [place] [address] 46799- 6561 Nov, ADHD (attention deficit hyperactivity disorder), combined type F90.2 ; Generalized anxiety disorder F41.1 and Persistent depressive disorder F34.1 [address] [id number] [place] [address] 32260- 3294 Nov, Acute pain of left shoulder M25.512 ; Generalized anxiety disorder F41.1 ; Chronic pain syndrome G89.4 ; Hyperinsulinemia E16.1 ; Pain of left foot M79.672 and Pain in right foot M79.671 [address] [address] 55087- 9519 Oct, ADHD (attention deficit hyperactivity disorder), combined type F90.2 ; Generalized anxiety disorder F41.1 and Dysthymic disorder F34.1 [facility] [id number] [place] [address] 35116- 2348 Sep, [facility] [id number] [place] [address] 49914- 4844 Sep, [id number] [place] [address] 04257- 5842 Sep, Routine gynecological examination V72.31 ; Cervical cancer screening Z12.4 ; Breast cancer screening Z12.39 ; Colon cancer screening Z12.11 ; Hypokalemia E87.6 ; Herpes simplex type 1 infection B00.9 and Abscess of right axilla L02.411 [facility] [id number] [place] [address] 28049- 4152 Sep, [facility] [id number] [place] [address] 99329- 7175 Sep, ADHD (attention deficit hyperactivity disorder), combined type F90.2 ; Generalized anxiety disorder F41.1 and Dysthymic disorder F34.1 [facility] [id number] [place] [address] 70892- 8930 Aug, [facility] [id number] [place] [address] 67432- 0270 Aug, [address] [address] 12235- 3878 Aug, Generalized anxiety disorder F41.1 [facility] [id number] [place] [address] 99313- 1593 Aug, ADHD (attention deficit hyperactivity disorder), combined type F90.2 ; Generalized anxiety disorder F41.1 and Dysthymic disorder F34.1 [facility] [id number] [place] [address] 28110- 1725 Jul, Chronic pain syndrome G89.4 ; Hypertension I10 ; Hypokalemia E87.6 ; Asthma J45.909 and Nausea R11.0 [facility] [id number] [place] [address] 43432- 9535 Jul, [facility] [id number] [place] [address] 93893- 1461 Jul, Asthma J45.909 [address] [address] 64625- 8759 Jul, ADHD (attention deficit hyperactivity disorder), combined type F90.2 ; Generalized anxiety disorder F41.1 and Dysthymic disorder F34.1 [facility] [id number] [place] [address] 12223- 5960 Jul, [facility] [id number] [place] [address] 32777- 3609 Jul, Hypertension I10 ; Arteriosclerotic coronary artery disease I25.10 ; Mixed hyperlipidemia E78.2 ; 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 and Hyperglycemia R73.9 [facility] [id number] [place] [address] 52716- 2222 16 Jun, 2016 Hypokalemia E87.6 and Hyperglycemia R73.9 [facility] [id number] [place] [address] 07773- 7797 14 Jun, 2016 [facility] [id number] [place] [address] 92032- 9216 Jun, Abnormal kidney function N28.9 [facility] [id number] [place] [address] 55006- 1901 Jun, [address] [address] 44066- 6181 Jun, ADHD (attention deficit hyperactivity disorder), combined type F90.2 ; Generalized anxiety disorder F41.1 and Dysthymic disorder F34.1 [address] [place] [address] 216628- 9482 Jun, Generalized anxiety disorder F41.1 and Dysthymic disorder F34.1 [facility] [address] 77754- 2032 Jun, Hypokalemia E87.6 [facility] [address] 65768- 6557 May, Hypokalemia E87.6 ; Vertigo R42 and Hyperinsulinemia E16.[address] 84912- 5572 May, [facility] [address] 60907- 4097 May, Abnormal kidney function N28.9 ; Hyperinsulinemia E16.1 and Nausea R11.0 [facility] [id number] [place] [address] 54984- 1488 May, Hypokalemia E87.6 ; Nausea R11.0 ; Epigastric pain R10.13 ; Dehydration E86.0 ; Diaphoresis R61 and Right arm pain M79.601 [facility] [id number] [place] [address] 69701- 5427 May, [facility] [address] 37710- 5381 May, Hypokalemia E87.6 [facility] [address], [place] [address]- 1934 May, Hypokalemia E87.6 [facility] [address], [place] [address]- 2195 Apr, [facility] [id number] [place] [address] 37050- 5994 Apr, ADHD (attention deficit hyperactivity disorder), combined type F90.2 ; Generalized anxiety disorder F41.1 and Dysthymic disorder F34.1 [facility] [id number] [place] [address] 10106- 8065 Apr, Right arm pain M79.601 and Hyperinsulinemia E16.1 [facility] [id number] [place] [address] 41417- 5461 Mar, [facility] [id number] [place] [address] 04326- 3605 Mar, [facility] [address] [place] [address] 96852- 3553 Mar, Hyperinsulinemia E16.1 ; Hyperlipidemia, unspecified hyperlipidemia type E78.5 ; Central venous catheter in place Z78.9 ; Generalized anxiety disorder F41.1 and Urinary tract infection, site not specified N39.0 [facility] [id number] [place] [address] 21337- 7600 Mar, ADHD (attention deficit hyperactivity disorder), combined type F90.2 ; Generalized anxiety disorder F41.1 and Dysthymic disorder F34.1 [facility] [address] [place] [address] 84557- 6255 February, ADHD (attention deficit hyperactivity disorder), combined type F90.2 ; Generalized anxiety disorder F41.1 and Dysthymic disorder F34.1 [facility] [address], [place] [address]- 2807 February, [facility] [id number] [place] [address] 06132- 3370 February, [facility] [id number] [place] [address] 66470- 6576 February, Hypertension I10 and Weight gain R63.5 [facility] [id number] [place] [address] 18641- 2177 February, Major depressive disorder, recurrent, moderate F33.1 and Generalized anxiety disorder F41.1 [facility] [id number] [place] [address] 06283- 7673 February, ADHD (attention deficit hyperactivity disorder), combined type F90.2 ; Generalized anxiety disorder F41.1 and Dysthymic disorder F34.1 [facility] [id number] [place] [address] 95696- 4199 February, [facility] [id number] [place] [address] 55864- 0696 February, Asthma J45.909 ; Weight gain R63.5 ; Hypertension I10 ; Rheumatoid arthritis M06.9 and Chronic pain syndrome G89.4 [facility] [id number] [place] [address] 72909- 4255 Jan, ADHD (attention deficit hyperactivity disorder), combined type F90.2 ; Generalized anxiety disorder F41.1 and Dysthymic disorder F34.1 [facility] [address] [place] [address] 04527- 3036 Dec, ADHD (attention deficit hyperactivity disorder), combined type F90.2 ; Generalized anxiety disorder F41.1 and Dysthymic disorder F34.1 [facility] [id number] [place] [address] 73439- 8512 Dec, [facility] [id number] [place] [address] 71427- 0517 Nov, [facility] [id number] [place] [address] 39932- 1227 Nov, [facility] [address], [place] [address]- 8450 Nov, [facility] [address], [place] [address]- 6574 Nov, [facility] [address], [place] [address]- 6285 Oct, [facility] [address], [place] [address]- 7072 Oct, [facility] [address], [place] [address]- 5392 Oct, [facility] [address], [place] [address]- 5680 Sep, [facility] [address], [place] [address]- 2387 Sep, [facility] [address], [place] [address]- 0311 Sep, Agoraphobia with panic disorder F40.01 ; Attention-deficit hyperactivity disorder, combined type F90.2 and Dysthymic disorder F34.1 [facility] [address], [place] [address]- 9208 Aug, [facility] [address], [place] [address]- 2590 Aug, [facility] [address], [place] [address]- 0217 Aug, [facility] [id number] [address]- 7258 Aug, Dysthymic disorder F34.1 ; Generalized anxiety disorder F41.1 and ADHD (attention deficit hyperactivity disorder), combined type F90.2 [facility] [id number] [address]- 7481 Aug, ADHD (attention deficit hyperactivity disorder), combined type F90.2 ; Generalized anxiety disorder F41.1 and Dysthymic disorder F34.1 [facility] [address], [place] [address]- 7432 Jul, Urinary tract infection, site not specified N39.0 ; Hypotension, unspecified I95.9 and Breast cancer screening Z12.39 [facility] [address], [place] [address]- 3138 Jul, [facility] [id number] [place] [address] 23463- 8198 Jul, [facility] [id number] [place] [address] 79831- 3796 Jul, Urinary tract infection, site not specified N39.0 ; Nausea R11.0 ; Gastroenteritis K52.9 ; Renal failure N19 and Other hypotension I95.89 [facility] [id number] [place] [address] 34104- 3676 Jul, [facility] [id number] [place] [address] 65040- 3388 Jul, [facility] [id number] [place] [address] 85325- 4316 Jul, [facility] [id number] [place] [address] 32276- 6720 Jun, [facility] [id number] [place] [address] 06141- 1920 Jun, Major depression in partial remission 296.25 ; Generalized anxiety disorder 300.02 and ADHD, predominantly inattentive type 314.01 [facility] [address], [place] [address]- 9983 May, [facility] [id number] [place] [address] Apr, Major depressive disorder, recurrent episode, severe, without mention of psychotic behavior 296.33 ; Agoraphobia with panic disorder 300.21 and Generalized anxiety disorder 300.02 [facility] [id number] [place] [address] Apr, ADHD (attention deficit hyperactivity disorder), combined type 314.01 ; Generalized anxiety disorder 300.02 and Dysthymic disorder 300.4 [facility] [address] [place] [id number] [place] [address] Apr, CAD (coronary artery disease) 414.00 ; HTN (hypertension) 401.9 and Tobacco use 305.1 [place] [place] [address] [address] Apr, [facility] [address] [place] [id number] [place] [address] Mar, ADHD (attention deficit hyperactivity disorder), combined type 314.01 ; Generalized anxiety disorder 300.02 ; Dysthymic disorder 300.4 ; No condition on [place] V71.09 ; Rheumatoid arthritis 714.0 ; Incontinence 788.30 ; Irritable bowel syndrome 564.1 ; Osteoporosis 733.00 and Chronic pain 338.29 [facility] [address] [place] [id number] [place] [address]- [address] Mar, Agoraphobia with panic disorder 300.21 and Major depressive disorder, recurrent episode, moderate [address] [id number] [place] [address] 41602- 7023 Mar, [place] [id number] [place] [address] 55705- 7289 February, [place] [id number] [place] [address] 68632- 7383 February, Agoraphobia with panic disorder 300.21 and Major depressive disorder, recurrent episode, moderate [address] [id number] [place] [address] 72400- 7716 February, [facility] [id number] [place] [address] 82393- 5176 Jan, [place] [id number] [place] [address] 56450- 8529 Jan, [facility] [place] [facility] [address] [id number] [place] [address]- 4705 Dec, [facility] [place] [facility] [address] [id number] [place] [address]- 9441 Dec, [facility] [place] [facility] [address] [facility] [id number] [place] [address]- 2999 Dec, [facility] [place] [facility] [address] [facility] [id number] [place] [address]- 5407 Dec, [facility] [place] [facility] [address] [facility] [id number] [place] [address]- 3955 Dec, [facility] [place] [facility] [address] [facility] [id number] [place] [address]- 5534 Dec, [facility] [place] [facility] [address] [facility] [id number] [place] [address]- 4966 Nov, [facility] [place] [facility] [address] [facility] [id number] [place] [address]- 3419 Nov, [facility] [place] [facility] [address] [facility] [id number] [place] [address]- 4626 Nov, [facility] [place] [facility] [address] [facility] [id number] [place] [address]- 6836 Nov, [facility] [place] [facility] [address] [id number] [place] [address]- 3326 Nov, 2014 [facility] [place] [facility] [address] [facility] [id number] [place] [address]- 5422 Nov, 2014 [facility] [place] [facility] [address] [facility] [id number] [place] [address]- 4416 Nov, 2014 [facility] [place] [facility] [address] [facility] [id number] [place] [address]- 2934 Nov, 2014 [facility] [place] [facility] [address] [id number] [place] [address]- 2820 Oct, [facility] [place] [facility] [address] [id number] [place] [address]- 1867 Oct, [facility] [place] [facility] [address] [id number] [place] [address]- 2296 Oct, [facility] [place] [facility] [address] [id number] [place] [address]- 5786 Oct, [facility] [place] [facility] [address] [id number] [place] [address]- 1295 Oct, [facility] [place] [facility] [address] [id number] [place] [address]- 9447 Oct, [facility] [place] [facility] [address] [id number] [place] [address]- 4293 Sep, [facility] [place] [facility] [address] [id number] [place] [address]- 8214 Sep, [facility] [place] [facility] [address] [id number] [place] [address]- 1481 Sep, [facility] [place] [facility] [address] [id number] [place] 3895 Sep, [facility] [place] [facility] [address] [id number] [place] [address]- 4659 Sep, [facility] [place] [facility] [address] [id number] [place] [address]- 8879 Sep, [facility] [place] [facility] [address] [id number] [place] [address]- 7662 Sep, [facility] [place] [facility] [address] [id number] [place] [address]- 5798 Aug, [facility] [place] [facility] [address] [id number] [place] [address]- 9974 Aug, [facility] [place] [facility] [address] [id number] [place] [address]- 2881 Aug, [facility] [place] [facility] [address] [id number] [place] [address]- 2248 Aug, [facility] [place] [facility] [address] [id number] [place] [address]- 7418 Aug, [facility] [place] [facility] [address] [id number] [place] [address]- 1616 Aug, [facility] [place] [facility] [address] [id number] [place] [address]- 1787 Jul, [facility] [place] [facility] [address] [id number] [place] [address]- 6862 Jul, [facility] [place] [facility] [address] [id number] [place] [address]- 0706 Jul, [facility] [place] [facility] [address] [id number] [place] [address]- 4478 Jul, [facility] [place] [facility] [address] [id number] [place] [address]- 2662 Jul, [facility] [place] [facility] [address] [id number] [place] [address]- 9116 Jul, [facility] [place] [facility] [address] [id number] [place] [address]- 6766 Jun, [facility] [place] [facility] [address] [id number] [place] [address]- 4241 Jun, [facility] [place] [facility] [address] [id number], [place] [address]- 2546 May, [facility] [place] [facility] [address] [id number], [place] [address]- 8682 May, [facility] [place] [facility] [address] [id number] [place] [address]- 3728 Apr, [facility] [place] [facility] [address] [id number] [place] [address]- 2546 Apr, [facility] [place] [facility] [address] [id number] [place] [address]- 2546 Apr, [facility] [place] [facility] [address] [id number] [place] [address]- 2408 Apr, [facility] [place] [facility] [address] [id number] [place] [address]- 9261 Mar, [facility] [place] [facility] [address] [id number] [place] [address]- 3826 Mar, [facility] [place] [facility] [address] [id number] [place] [address]- 9867 Mar, [facility] [place] [facility] [address] [id number] [place] [address]- 9400 Mar, [facility] [place] [facility] [address] [id number] [place] [address]- 7061 February, [facility] [place] [facility] [address] [id number] [place] [address]- 4525 February, [facility] [place] [facility] [address] [id number] [place] [address]- 1505 February, [facility] [place] [facility] [address] [id number] [place] [address]- 7203 February, [facility] [place] [facility] [address] [id number] [place] [address]- 9815 February, [facility] [place] [facility] [address] [facility] [id number] [place] [address]- 6537 February, [facility] [place] [facility] [address] [id number] [place] [address]- 2563 Jan, [facility] [place] [facility] [address] [id number] [place] [address]- 4834 Jan, [facility] [place] [facility] [address] [id number] [place] [address]- 5309 Dec, [facility] [place] [facility] [address] [id number] [place] [address]- 4471 Dec, [facility] [place] [facility] [address] [id number] [place] [address]- 3809 Nov, [facility] [place] [facility] [address] [id number] [place] [address]- 1772 Nov, [facility] [address] [id number] [place] [address]201 Oct, [facility] [place] [facility] [address] [id number] [place] [address]- 5587 Oct, [facility] [place] [facility] [address] [id number] [place] [address]- 8288 Oct, [facility] [address] [id number] [place] [address]- 7518 Oct, [facility] [place] [facility] [address] [id number] [place] [address]80 Sep, [facility] [address] [id number] [place] [address]- 5327 Sep, [facility] [address] [id number] [place] [address]- 0291 Sep, [facility] [place] [facility] [address] [id number] [place] [address]- 3380 Sep, [facility] [place] [facility] [address] [id number] [place] 7213 Sep, [facility] [place] [facility] [address] [id number] [place] [address]- 1851 Sep, [facility] [place] [facility] [address] [id number], [place] [address]- 8994 Sep, [facility] [place] [facility] [address] [id number] [place] [address]- 1487 Sep, [facility] [place] [facility] [address] [id number] [place] [address]- 5193 Aug, [facility] [place] [facility] [address] [id number] [place] [address]- 6492 Aug, [facility] [place] [facility] [address] [id number], [place] [address]- 6890 Aug, [facility] [place] [facility] [address] [id number] [place] [address]- 6160 Aug, [facility] [place] [facility] [address] [id number] [place] [address]- 7950 Aug, [facility] [place] [facility] [address] [id number] [place] [address]- 1030 Aug, [facility] [place] [facility] [address] [id number] [place] [address]- 3098 Aug, [facility] [place] [facility] [address] [id number] [place] [address]- 4852 Aug, [facility] [place] [facility] [address] [id number] [place] [address]- 1854 Aug, [facility] [place] [facility] [address] [id number] [place] [address]- 5466 Jul, [facility] [place] [facility] [address] [id number] [place] [address]- 5012 Jun, [facility] [place] [facility] [address] [id number] [place] [address]- 0578 May, [facility] [place] [facility] [address] [id number] [place] [address]- 1939 May, [facility] [place] [facility] [address] [id number], [place] [address]- 1375 May, [facility] [place] [facility] [address] [id number], [place] [address]- 2292 Apr, [facility] [place] [facility] [address] [id number] [place] [address]- 0432 Mar, [facility] [place] [facility] [address] [id number] [place] [address]- 7291 February, [facility] [place] [facility] [address] [id number] [place] [address]- 6150 Oct, [facility] [place] [facility] [address] [id number] [place] [address]- 0995 16 Oct, 2012 [facility] [place] [facility] [address] [id number] [place] [address]- 7463 14 Oct, 2012 [facility] [place] [facility] [address] [id number] [place] [address]- 2066 14 Oct, 2012 [facility] [place] [facility] [address] [id number] [place] [address]- 3873 Oct, [facility] [place] [facility] [address] [id number] [place] [address]- 0519 Oct, [facility] [place] [facility] [address] [id number] [place] [address]- 9864 Sep, [facility] [place] [facility] [address] [id number] [place] [address]- 7347 Sep, [facility] [place] [facility] [address] [id number] [place] [address]- 3101 Aug, [facility] [place] [facility] [address] [id number] [place] [address]- 2564 Aug, [facility] [place] [facility] [address] [id number] [place] [address]- 3698 Jul, [facility] [place] [facility] [address] [id number] [place] [address]- 1760 Jul, [facility] [place] [facility] [address] [id number] [place] [address]- 8089 Jul, [facility] [place] [facility] [address] [id number] [place] [address]- 9988 Jul, [facility] [place] [facility] [address] [id number] [place] [address]- 9902 Jul, [facility] [place] [facility] [address] [id number] [place] [address]- 6685 Jul, [facility] [place] [facility] [address] [id number] [place] [address]- 0432 Jul, [facility] [place] [facility] [address] [id number] [place] [address]- 0574 Jul, [facility] [place] [facility] [address] [id number] [place] [address]- 4149 16 Jun, 2012 [facility] [place] [facility] [address] [id number] [place] 7572 Jun, [facility] [place] [facility] [address] [id number] [place] [address]- 1097 May, [facility] [place] [facility] [address] [id number] [place] [address]- 1124 Apr, [facility] [place] [facility] [address] [id number] [place] [address]- 4280 Mar, [facility] [place] [facility] [address] [id number] [place] [address]- 7178 Mar, [facility] [place] [facility] [address] [id number] [place] [address]- 7416 Mar, [facility] [place] [facility] [address] [id number] [place] [address]- 8979 Mar, [facility] [place] [facility] [address] [id number] [place] [address]- 6987 Jan, [facility] [place] [facility] [address] [id number] [place] [address]- 5118 Nov, [facility] [place] [facility] [address] [id number], [place] [address]- 9628 Nov, [facility] [place] [facility] [address] [id number] [place] [address]- 8154 Nov, [facility] [place] [facility] [address] [id number] [place] 4535 Oct, [facility] [place] [facility] [address] [id number] [place] [address]- 1238 Sep, [facility] [place] [facility] [id number], [place] [address]- 4949 Sep, [facility] [id number], [place] [address]- 2435 Aug, [facility] [id number] [id number] 5731 Aug, [facility] [id number] 7046 Aug, [facility] [id number] 6157 Aug, [facility] [id number] [place] [address] 992283- 6656 Jul, [facility] [id number] [place] [address] 83808- 8638 May, [facility] [id number] [place] [address] 187137- 9249 Jan, [facility] [id number] [place] [address] 58016- 0669 Nov, [facility] [id number], [place] [address]- 2977 Apr, [facility] [id number], [place] [address]- 3232 Dec, [facility] [id number]- 1743 Nov, IMMUNIZATIONS No Known Immunizations SOCIAL HISTORY Never Assessed REASON FOR VISIT requesting a returned call PLAN OF CARE VITAL SIGNS MEDICATIONS Unknown Medications RESULTS No Results PROCEDURES No Known procedures INSTRUCTIONS MEDICATIONS ADMINISTERED No Known Medications MEDICAL (GENERAL) HISTORY Type Description Date Medical History Cardiovascular togchdbt-JYJ-Tjxveump, 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 Mendoza Medical History Stress test 03/07/13-Dr. Kelly Dietrich normal Medical History Hypertension Medical History Asthma Medical History Gastrointestinal Disorder--IBS, GERD, Hx of fatty liver Medical History Hernia 1979 Medical History Cervical dysplasia 02/16-Pap [place]GS[place]-mild dysplasia Medical History Hyperlipidemia Medical History Rheumatoid [...] Kidney injury 07/10/15-07/11/2015 Hospitalization History Symptomatic Hypokalemia/Nause-Via [facility] 05/13/16 Hospitalization History Stroke 05/03/2017 Hospitalization History stroke 08/24/2017--09/01/2017
--- OUTSIDE RECORDS SUMMARY | 2018-06-12 15:59 | XMS REPORT ---
Author Author LORI SNOWDEN Organization [facility] Address [address] [place] [address] Care Team Providers Care Byproducts Maker Name Role Phone LORI SNOWDEN Unavailable PROBLEMS Type Condition ICD9-CM Code AHI54-MB Code Onset Dates Condition Status SNOMED Code Problem ADHD (attention deficit hyperactivity disorder), combined type F90.2 Active 43833321 Problem Other assisted (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 Active 689443348 Problem Generalized anxiety disorder F41.1 Active 89658944 Problem Cerebrovascular accident (CVA), unspecified mechanism I63.9 Active 934972048 Problem Asthma J45.909 Active 215112324 Problem Dysthymic disorder F34.1 Active 55549487 Problem Rheumatoid arthritis involving multiple sites, unspecified rheumatoid factor presence M06.9 Active 327796187 Problem Sleep apnea in adult G47.30 Active 39441320 Problem Seasonal allergies J30.2 Active 394720032 Problem Mild episode of recurrent major depressive disorder F33.0 Active 984290191 Problem Rheumatoid arthritis M06.9 Active 15293665 Problem Chronic pain syndrome G89.4 Active 431330445 Problem Hypertension I10 Active 80031534 Problem Anxiety F41.9 Active 53467029 Problem Gastroesophageal reflux disease with esophagitis K21.0 Active 624268423 Problem Panic attacks F41.0 Active 275350491 Problem Irritable bowel syndrome with diarrhea K58.0 Active 733838040 Problem Mixed hyperlipidemia E78.2 Active 952140924 Problem Hyperinsulinemia E16.1 Active 62028692 Problem Weight gain R63.5 Active 0697186 Problem Arteriosclerotic coronary artery disease I25.10 Active 54446432 Problem Chronic obstructive pulmonary disease, unspecified J44.9 Active [id number] Problem Obstructive sleep apnea G47.33 Active 13269321 Problem Neuropathy G62.9 Active 394287358 Problem Other insomnia G47.09 Active 895327213 ALLERGIES No Information ENCOUNTERS Encounter Location Date Diagnosis [facility] [id number] [place] [address] 56950- 8395 May, [facility] [id number] [place] [address] 42493- 8802 Mar, Mild episode of recurrent major depressive disorder F33.0 [facility] [address] 37267- 9880 Mar, Mild episode of recurrent major depressive disorder F33.0 and Generalized anxiety disorder F41.1 [facility] [address] 76869- 4147 Mar, Seasonal allergies J30.2 [facility] [address] 86272- 3571 Mar, Seasonal allergies J30.2 [facility] [address] 23464- 9917 February, Generalized anxiety disorder F41.1 [facility] [id number] [place] [address] 54183 -1273 February, Cough R05 and Seasonal allergies J30.2 [facility] [id number] [place] [address] 02772- 8036 February, Generalized anxiety disorder F41.1 and Mild episode of recurrent major depressive disorder F33.0 [facility] [id number] [place] [address] 27456- 8264 February, Other assisted (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 ; Anxiety F41.9 ; Panic attacks F41.0 and Irritable bowel syndrome with diarrhea K58.0 [facility] [id number] [place] [address] 44720- 1635 February, [facility] [id number] [place] [address] 28564- 4058 Jan, Mixed hyperlipidemia E78.2 [facility] [address] 12454- 3745 Jan, [facility] [address] [place] [address]- 1542 Jan, [facility] [id number] [place] [address], [place] [address]- 0286 Jan, [facility] [id number] [place] [address]- 7029 Jan, [facility] [id number] [place] [address], [place] [address]- 1276 Dec, [facility] [id number] [place] [address], [place] [address]- 5658 Dec, [facility] [id number] [place] [address] 95086- 0036 Dec, [facility] [id number] [place] [address] 829359- 4511 Nov, Dysthymic disorder F34.1 [facility] [address] [address]- 1784 Oct, [facility] [id number] [place] [address] 551986- 5108 Oct, [facility] [address] [address]- 0374 Oct, [facility] [address] [place] [address] 24931- 5224 Oct, Diarrhea, unspecified type R19.7 and Dysuria R30.0 [facility] [address] [address]- 3854 Oct, [facility] [address] 6864 Sep, [facility] [address] 8[address] Sep, [facility] [id number] [place] [address] 62249- 0262 Sep, Anxiety F41.9 [place] [id number] [place] [address] 37438- 1812 Sep, Cerebrovascular accident (CVA), unspecified mechanism I63.9 ; Mixed hyperlipidemia E78.2 ; Gastroesophageal reflux disease with esophagitis K21.0 and Anxiety F41.9 [id number] [place] [address] 24700- 9432 Sep, [id number] [place] [address] 98254- 0418 Aug, Chronic obstructive pulmonary disease, unspecified J44.9 ; Asthma J45.909 ; Nausea R11.0 ; Dysthymic disorder F34.1 ; Cerebrovascular accident (CVA), unspecified mechanism I63.9 and Rheumatoid arthritis M06.9 [id number] [place] [address] 04707- 0946 Aug, Nausea R11.0 ; Encounter for immunization Z23 ; Sleep apnea in adult G47.30 ; Rheumatoid arthritis involving multiple sites, unspecified rheumatoid factor presence M06.9 ; Generalized anxiety disorder F41.1 ; Dysthymic disorder F34.1 and Asthma J45.909 [place] [id number] [place] [address] 99097- 6240 Jul, [id number] [place] [address] 20799- 1346 May, ADHD (attention deficit hyperactivity disorder), combined type F90.2 ; Generalized anxiety disorder F41.1 and Persistent depressive disorder F34.1 [id number] [place] [address] 61728- 3083 May, Cerebrovascular accident (CVA), unspecified mechanism I63.9 [id number] [place] [address] 11573- 8787 Apr, Mixed hyperlipidemia E78.2 and Cerebrovascular accident (CVA ), unspecified mechanism I63.9 [id number] [place] [address] 40607- 3945 Apr, Generalized anxiety disorder F41.1 [place] [address] 37233- 5587 Apr, Bronchitis J40 and Tobacco use Z72.0 [place] [address] 79264- 1212 Apr, Mixed hyperlipidemia E78.2 [facility] [address] 48359- 0581 Apr, Other assisted (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 [place] [address] 64420- 8941 Apr, [place] [address] 38883- 4352 Apr, Generalized anxiety disorder F41.1 [place] [address] 44432- 6499 Apr, Obstructive sleep apnea G47.33 and Hyperinsulinemia E16.1 [place] [address] 25227- 2140 Apr, ADHD (attention deficit hyperactivity disorder), combined type F90.2 ; Generalized anxiety disorder F41.1 and Persistent depressive disorder F34.1 [place] [id number] [place] [address] 12388- 5374 Mar, [place] [id number] [place] [address] 11099- 0238 Mar, Generalized anxiety disorder F41.1 [place] [address] 35706- 2023 Mar, Tarsal tunnel syndrome of both lower extremities G57.53 [place] [id number] [place] [address] 67431- 0373 February, [facility] [address] 30448- 3011 February, [facility] [address], [place] [address]- 0957 February, Asthma J45.909 [facility] [id number] [place] [address] 85726- 4307 February, Generalized anxiety disorder F41.1 [facility] [id number] [place] [address] 31986- 2070 February, Hypoxemia R09.02 ; Hyperglycemia R73.9 ; Rheumatoid arthritis M06.9 and Generalized anxiety disorder F41.1 [place] [id number] [place] [address] 03919- 3980 February, [facility] [id number] [place] [address] 56964- 2701 Jan, Chronic obstructive pulmonary disease, unspecified J44.9 [place] [id number] [place] [address] 50501- 9797 Jan, Chronic pain syndrome G89.4 [place] [id number] [place] [address] 43678- 6105 Jan, Hypoxemia R09.02 [facility] [id number] [place] [address] 12011- 5809 Jan, [place] [address] [place] [address] 72407- 5191 Jan, Chronic obstructive pulmonary disease, unspecified J44.9 ; Hypoxemia R09.02 ; Other insomnia G47.09 and Left anterior shoulder pain M25.512 [place] [id number] [place] [address] 33417- 2212 Jan, Numbness in feet R20.0 and Neuropathy G62.9 [facility] [id number] [place] [address] 73500- 9431 Jan, [facility] [id number] [place] [address] 19636- 9795 Dec, Acute pain of left shoulder M25.512 [facility] [address], [place] [address]- 1677 Dec, Acute pain of left shoulder M25.512 [facility] [id number] [place] [address] 48864- 5276 Dec, Generalized anxiety disorder F41.1 [facility] [id number] [place] [address] 23305- 3616 Dec, Generalized anxiety disorder F41.1 [facility] [id number] [place] [address] 88182- 3911 Nov, ADHD (attention deficit hyperactivity disorder), combined type F90.2 ; Generalized anxiety disorder F41.1 and Persistent depressive disorder F34.1 [facility] [id number] [place] [address] 04269- 8202 Nov, Acute pain of left shoulder M25.512 [facility] [id number] [place] [address] 31774- 0787 Nov, ADHD (attention deficit hyperactivity disorder), combined type F90.2 ; Generalized anxiety disorder F41.1 and Persistent depressive disorder F34.1 [facility] [id number] [place] [address] 86859- 2353 Nov, Chronic pain syndrome G89.4 [facility] [id number] [place] [address] 48418 2546 Nov, Chronic pain syndrome G89.4 [facility] [id number] [place] [address] 50175- 9999 08 Nov, 2016 Acute pain of left shoulder M25.512 [facility] [id number] [place] [address] 55088- 5066 Nov, Generalized anxiety disorder F41.1 [facility] [id number] [place] [address] 72284- 2764 Nov, Acute pain of left shoulder M25.512 [facility] [id number] [place] [address] 63720- 9479 Nov, ADHD (attention deficit hyperactivity disorder), combined type F90.2 ; Generalized anxiety disorder F41.1 and Persistent depressive disorder F34.1 [place] [address] [place] [address] 43359- 6531 Nov, Acute pain of left shoulder M25.512 ; Generalized anxiety disorder F41.1 ; Chronic pain syndrome G89.4 ; Hyperinsulinemia E16.1 ; Pain of left foot M79.672 and Pain in right foot M79.671 [place] [address] 09989- 6361 Oct, ADHD (attention deficit hyperactivity disorder), combined type F90.2 ; Generalized anxiety disorder F41.1 and Dysthymic disorder F34.1 [place] [id number] [place] [address] 28138- 5798 Sep, [place] [address] [place] [address] 76062- 1783 Sep, [id number] [place] [address] 95708- 9457 Sep, Routine gynecological examination V72.31 ; Cervical cancer screening Z12.4 ; Breast cancer screening Z12.39 ; Colon cancer screening Z12.11 ; Hypokalemia E87.6 ; Herpes simplex type 1 infection B00.9 and Abscess of right axilla L02.411 [place] [id number] [place] [address] 80151- 7470 Sep, [place] [id number] [place] [address] 98814- 3844 Sep, ADHD (attention deficit hyperactivity disorder), combined type F90.2 ; Generalized anxiety disorder F41.1 and Dysthymic disorder F34.1 [place] [id number] [place] [address] 66134- 4852 Aug, [place] [id number] [place] [address] 17536- 6925 Aug, [place] [address] 09610- 4167 Aug, Generalized anxiety disorder F41.1 [place] [id number] [place] [address] 87929- 5942 Aug, ADHD (attention deficit hyperactivity disorder), combined type F90.2 ; Generalized anxiety disorder F41.1 and Dysthymic disorder F34.1 [place] [id number] [place] [address] 64711- 6623 Jul, Chronic pain syndrome G89.4 ; Hypertension I10 ; Hypokalemia E87.6 ; Asthma J45.909 and Nausea R11.0 [place] [id number] [place] [address] 05657- 8209 Jul, [place] [id number] [place] [address] 28276- 9200 Jul, Asthma J45.909 [place] [address] 76649- 4917 Jul, ADHD (attention deficit hyperactivity disorder), combined type F90.2 ; Generalized anxiety disorder F41.1 and Dysthymic disorder F34.1 [place] [id number] [place] [address] 94625- 7641 Jul, [place] [address] [place] [address] 11764- 7782 Jul, Hypertension I10 ; Arteriosclerotic coronary artery disease I25.10 ; Mixed hyperlipidemia E78.2 ; 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 and Hyperglycemia R73.9 [place] [address] [place] [address] 39610- 4329 16 Jun, 2016 Hypokalemia E87.6 and Hyperglycemia R73.9 [place] [address] [place] [address] 42553- 2250 14 Jun, 2016 [place] [address] [place] [address] 52761- 4595 Jun, Abnormal kidney function N28.9 [place] [address] [place] [address] 37651- 0743 Jun, [place] [address] 35686- 1832 Jun, ADHD (attention deficit hyperactivity disorder), combined type F90.2 ; Generalized anxiety disorder F41.1 and Dysthymic disorder F34.1 [place] [address] 175589- 6365 Jun, Generalized anxiety disorder F41.1 and Dysthymic disorder F34.1 [place] [address] 29851- 9330 Jun, Hypokalemia E87.6 [place] [address] 84483- 6867 May, Hypokalemia E87.6 ; Vertigo R42 and Hyperinsulinemia E16.[address] 30831- 2715 May, [place] [address] 33339- 6461 May, Abnormal kidney function N28.9 ; Hyperinsulinemia E16.1 and Nausea R11.0 [place] [id number] [place] [address] 97807- 2248 May, Hypokalemia E87.6 ; Nausea R11.0 ; Epigastric pain R10.13 ; Dehydration E86.0 ; Diaphoresis R61 and Right arm pain M79.601 [place] [address] [place] [address] 44196- 4472 May, [place] [address] 03803- 7470 May, Hypokalemia E87.6 [facility] [address], [place] [address]- 3588 May, Hypokalemia E87.6 [facility] [address], [place] [address]- 2286 Apr, [facility] [id number] [place] [address] 91802- 0774 Apr, ADHD (attention deficit hyperactivity disorder), combined type F90.2 ; Generalized anxiety disorder F41.1 and Dysthymic disorder F34.1 [place] [address] [place] [address] 55943- 5736 Apr, Right arm pain M79.601 and Hyperinsulinemia E16.1 [facility] [address] [place] [address] 68774- 3696 Mar, [facility] [id number] [place] [address] 89570- 7852 Mar, [facility] [address] [place] [address] 64883- 3773 Mar, Hyperinsulinemia E16.1 ; Hyperlipidemia, unspecified hyperlipidemia type E78.5 ; Central venous catheter in place Z78.9 ; Generalized anxiety disorder F41.1 and Urinary tract infection, site not specified N39.0 [facility] [address] [place] [address] 38358- 1167 Mar, ADHD (attention deficit hyperactivity disorder), combined type F90.2 ; Generalized anxiety disorder F41.1 and Dysthymic disorder F34.1 [facility] [address] [place] [address] 04072- 2307 February, ADHD (attention deficit hyperactivity disorder), combined type F90.2 ; Generalized anxiety disorder F41.1 and Dysthymic disorder F34.1 [facility] [address], [place] [address]- 1332 February, [facility] [id number] [place] [address] 50182- 4362 February, [place] [id number] [place] [address] 02286- 0985 February, Hypertension I10 and Weight gain R63.5 [place] [id number] [place] [address] 17808- 2920 February, Major depressive disorder, recurrent, moderate F33.1 and Generalized anxiety disorder F41.1 [place] [address] [place] [address] 65224- 9791 February, ADHD (attention deficit hyperactivity disorder), combined type F90.2 ; Generalized anxiety disorder F41.1 and Dysthymic disorder F34.1 [place] [address] [place] [address] 95047- 0226 February, [place] [address] [place] [address] 16372- 3556 February, Asthma J45.909 ; Weight gain R63.5 ; Hypertension I10 ; Rheumatoid arthritis M06.9 and Chronic pain syndrome G89.4 [place] [address] [place] [address] 01886- 8569 Jan, ADHD (attention deficit hyperactivity disorder), combined type F90.2 ; Generalized anxiety disorder F41.1 and Dysthymic disorder F34.1 [place] [address] [place] [address] 85266- 1908 Dec, ADHD (attention deficit hyperactivity disorder), combined type F90.2 ; Generalized anxiety disorder F41.1 and Dysthymic disorder F34.1 [place] [id number] [place] [address] 90205- 5924 Dec, [place] [id number] [place] [address] 05109- 2572 Nov, [place] [id number] [place] [address] 51943- 3698 Nov, [facility] [address], [place] [address]- 3108 Nov, [facility] [address], [place] [address]- 7703 Nov, [facility] [address], [place] [address]- 7470 Oct, [facility] [address], [place] [address]- 2950 Oct, [facility] [address], [place] [address]- 4356 Oct, [facility] [address], [place] [address]- 9953 Sep, [facility] [address] [place] [address]- 6276 Sep, [facility] [address], [place] [address]- 5631 Sep, Agoraphobia with panic disorder F40.01 ; Attention-deficit hyperactivity disorder, combined type F90.2 and Dysthymic disorder F34.1 [facility] [address], [place] [address]- 5058 Aug, [facility] [address], [place] [address]- 2695 Aug, [facility] [address], [place] [address]- 4342 Aug, [facility] [id number] [address]- 2055 Aug, Dysthymic disorder F34.1 ; Generalized anxiety disorder F41.1 and ADHD (attention deficit hyperactivity disorder), combined type F90.2 [facility] [address] [address]- 7487 Aug, ADHD (attention deficit hyperactivity disorder), combined type F90.2 ; Generalized anxiety disorder F41.1 and Dysthymic disorder F34.1 [facility] [address] [place] [address]- 1974 Jul, Urinary tract infection, site not specified N39.0 ; Hypotension, unspecified I95.9 and Breast cancer screening Z12.39 [facility] [address] [place] [address]- 8851 Jul, [facility] [id number] [place] [address] 93315- 3134 Jul, [facility] [id number] [place] [address] 66535- 1002 Jul, Urinary tract infection, site not specified N39.0 ; Nausea R11.0 ; Gastroenteritis K52.9 ; Renal failure N19 and Other hypotension I95.89 [facility] [id number] [place] [address] [phone]- 8686 Jul, [facility] [id number] [place] [address] [id number]- 3536 Jul, [facility] [id number] [place] [address] [phone]- [phone] Jul, [facility] [id number] [place] [address] [phone]- 8858 Jun, [facility] [id number] [place] [address] [phone]- 9807 Jun, Major depression in partial remission 296.25 ; Generalized anxiety disorder 300.02 and ADHD, predominantly inattentive type 314.01 [facility] [id number] [address] May, [place] [id number] [place] [address] [id number]- 5413 Apr, Major depressive disorder, recurrent episode, severe, without mention of psychotic behavior 296.33 ; Agoraphobia with panic disorder 300.21 and Generalized anxiety disorder 300.02 [facility] [facility] [id number] [place] [address] 57390- 9593 Apr, ADHD (attention deficit hyperactivity disorder), combined type 314.01 ; Generalized anxiety disorder 300.02 and Dysthymic disorder 300.4 [facility] [id number] [place] [address] 88257- 3847 Apr, CAD (coronary artery disease) 414.00 ; HTN (hypertension) 401.9 and Tobacco use 305.1 [address] [place] [address] 69698- 7873 Apr, [place] [id number] [place] [address] 37430- 3349 Mar, ADHD (attention deficit hyperactivity disorder), combined type 314.01 ; Generalized anxiety disorder 300.02 ; Dysthymic disorder 300.4 ; No condition on [employer] II V71.09 ; Rheumatoid arthritis 714.0 ; Incontinence 788.30 ; Irritable bowel syndrome 564.1 ; Osteoporosis 733.00 and Chronic pain 338.29 [place] [id number] [place] [address] 70261- 4730 Mar, Agoraphobia with panic disorder 300.21 and Major depressive disorder, recurrent episode, moderate 296.32 [id number] [place] [address] 50527- 9654 Mar, [place] [id number] [place] [address] 97420- 1872 February, [place] [id number] [place] [address] 88644- 3289 February, Agoraphobia with panic disorder 300.21 and Major depressive disorder, recurrent episode, moderate 296.32 [id number] [place] [address] 31663- 1065 February, [facility] [id number] [place] [address] 89294- 5570 Jan, [place] [id number] [place] [address] 15667- 2208 Jan, [facility] [place] [facility] [address] [id number] [place] [address]- 3889 Dec, [facility] [place] [facility] [address] [id number] [place] [address]- 2818 Dec, [facility] [place] [facility] [address] [facility] [id number] [place] [address]- 9912 Dec, [facility] [place] [facility] [address] [facility] [id number] [place] [address]- 0341 Dec, [facility] [place] [facility] [address] [facility] [id number] [place] [address]- 5140 Dec, [facility] [place] [facility] [address] [facility] [id number] [place] [address]- 6516 Dec, [facility] [place] [facility] [address] [facility] [id number] [place] [address]- 8585 Nov, [facility] [place] [facility] [address] [facility] [id number] [place] [address]- 4105 Nov, [facility] [place] [facility] [address] [facility] [id number] [place] [address]- 5060 Nov, [facility] [place] [facility] [address] [facility] [id number] [place] [address]- 8698 Nov, [facility] [place] [facility] [address] [id number] [place] [address]- 9917 Nov, 2014 [facility] [place] [facility] [address] [facility] [id number] [place] [address]- 4864 Nov, 2014 [facility] [place] [facility] [address] [facility] [id number] [place] [address]- 2272 Nov, 2014 [facility] [place] [facility] [address] [facility] [id number] [place] [address]- 8411 Nov, 2014 [facility] [place] [facility] [address] [id number] [place] [address]- 3603 Oct, [facility] [place] [facility] [address] [id number] [place] [address]- 2548 Oct, [facility] [place] [facility] [address] [id number] [place] [address]- 0729 Oct, [facility] [place] [facility] [address] [id number] [place] [address]- 4106 Oct, [facility] [place] [facility] [address] [id number] [place] [address]- 4318 Oct, [facility] [place] [facility] [address] [id number] [place] [address]- 0969 Oct, [facility] [place] [facility] [address] [id number] [place] [address]- 1443 Sep, [facility] [place] [facility] [address] [id number] [place] [address]- 8529 Sep, [facility] [place] [facility] [address] [id number] [place] [address]- 2158 Sep, [facility] [place] [facility] [address] [id number] [place] 9489 Sep, [facility] [place] [facility] [address] [id number] [place] [address]- 3874 Sep, [facility] [place] [facility] [address] [id number] [place] [address]- 0818 Sep, [facility] [place] [facility] [address] [id number] [place] [address]- 0913 Sep, [facility] [place] [facility] [address] [id number] [place] [address]- 6536 Aug, [facility] [place] [facility] [address] [id number] [place] [address]- 6456 Aug, [facility] [place] [facility] [address] [id number] [place] [address]- 4823 Aug, [facility] [place] [facility] [address] [id number] [place] [address]- 4479 Aug, [facility] [place] [facility] [address] [id number] [place] [address]- 8176 Aug, [facility] [place] [facility] [address] [id number] [place] [address]- 1186 Aug, [facility] [place] [facility] [address] [id number] [place] [address]- 9502 Jul, [facility] [place] [facility] [address] [id number] [place] [address]- 4171 Jul, [facility] [place] [facility] [address] [id number] [place] [address]- 1083 Jul, [facility] [place] [facility] [address] [id number] [place] [address]- 1615 Jul, [facility] [place] [facility] [address] [id number] [place] [address]- 2875 Jul, [facility] [place] [facility] [address] [id number] [place] [address]- 5831 Jul, [facility] [place] [facility] [address] [id number] [place] [address]- 8970 Jun, [facility] [place] [facility] [address] [id number] [place] [address]- 8988 Jun, [facility] [place] [facility] [address] [id number], [place] [address]- 2546 May, [facility] [place] [facility] [address] [id number], [place] [address]- 3140 May, [facility] [place] [facility] [address] [id number] [place] [address]- 9201 Apr, [facility] [place] [facility] [address] [id number] [place] [address]- 2546 Apr, [facility] [place] [facility] [address] [id number] [place] [address]- 2546 Apr, [facility] [place] [facility] [address] [id number] [place] [address]- 7722 Apr, [facility] [place] [facility] [address] [id number] [place] [address]- 5924 Mar, [facility] [place] [facility] [address] [id number] [place] [address]- 2537 Mar, [facility] [place] [facility] [address] [id number] [place] [address]- 1467 Mar, [facility] [place] [facility] [address] [id number] [place] [address]- 2459 Mar, [facility] [place] [facility] [address] [id number] [place] [address]- 2226 February, [facility] [place] [facility] [address] [id number] [place] [address]- 0203 February, [facility] [place] [facility] [address] [id number] [place] [address]- 9721 February, [facility] [place] [facility] [address] [id number] [place] [address]- 0466 February, [facility] [place] [facility] [address] [id number] [place] [address]- 8085 February, [facility] [place] [facility] [address] [facility] [id number] [place] [address]- 5988 February, [facility] [place] [facility] [address] [id number] [place] [address]- 8628 Jan, [facility] [place] [facility] [address] [id number] [place] [address]- 7964 Jan, [facility] [place] [facility] [address] [id number] [place] [address]- 4490 Dec, [facility] [place] [facility] [address] [id number] [place] [address]- 3747 Dec, [facility] [place] [facility] [address] [id number] [place] [address]- 6739 Nov, [facility] [place] [facility] [address] [id number] [place] [address]- 1555 Nov, [facility] [place] [address] [id number] [place] 8841 Oct, [facility] [place] [facility] [address] [id number] [place] [address]- 5284 Oct, [facility] [place] [facility] [address] [id number] [place] [address]- 9812 Oct, [facility] [address] [id number] [place] [address]- 0873 Oct, [facility] [place] [facility] [address] [id number] [place] 8473 Sep, [facility] [place] [facility] [address] [id number] [place] [address]- 9076 Sep, [facility] [place] [facility] [address] [id number] [place] [address]- 1668 Sep, [facility] [place] [facility] [address] [id number] [place] [address]- 6457 Sep, [facility] [place] [facility] [address] [id number] [place]- 9131 Sep, [facility] [place] [facility] [address] [id number] [place] [address]- 7270 Sep, [facility] [place] [facility] [address] [id number], [place] [address]- 7241 Sep, [facility] [place] [facility] [address] [id number] [place] [address]- 9640 Sep, [facility] [place] [facility] [address] [id number] [place] [address]- 6937 Aug, [facility] [place] [facility] [address] [id number] [place] [address]- 0691 Aug, [facility] [place] [facility] [address] [id number], [place] [address]- 4975 Aug, [facility] [place] [facility] [address] [id number] [place] [address]- 7730 Aug, [facility] [place] [facility] [address] [id number] [place] [address]- 1209 Aug, [facility] [place] [facility] [address] [id number] [place] [address]- 3163 Aug, [facility] [place] [facility] [address] [id number] [place] [address]- 8388 Aug, [facility] [place] [facility] [address] [id number] [place] [address]- 8958 Aug, [facility] [place] [facility] [address] [id number] [place] [address]- 9705 Aug, [facility] [place] [facility] [address] [id number] [place] [address]- 7984 Jul, [facility] [place] [facility] [address] [id number] [place] [address]- 6100 Jun, [facility] [place] [facility] [address] [id number] [place] [address]- 5639 May, [facility] [place] [facility] [address] [id number] [place] [address]- 3532 May, [facility] [place] [facility] [address] [id number], [place] [address]- 2629 May, [facility] [place] [facility] [address] [id number], [place] [address]- 3496 Apr, [facility] [place] [facility] [address] [id number] [place] [address]- 8414 Mar, [facility] [place] [facility] [address] [id number] [place] [address]- 6009 February, [facility] [place] [facility] [address] [id number] [place] [address]- 9245 Oct, [facility] [place] [facility] [address] [id number] [place] [address]- 5324 16 Oct, 2012 [facility] [place] [facility] [address] [id number] [place] [address]- 2264 14 Oct, 2012 [facility] [place] [facility] [address] [id number] [place] [address]- 9486 14 Oct, 2012 [facility] [place] [facility] [address] [id number] [place] [address]- 6218 Oct, [facility] [place] [facility] [address] [id number] [place] [address]- 1236 Oct, [facility] [place] [facility] [address] [id number] [place] [address]- 3328 Sep, [facility] [place] [facility] [address] [id number] [place] [address]- 0128 Sep, [facility] [place] [facility] [address] [id number] [place] [address]- 2972 Aug, [facility] [place] [facility] [address] [id number] [place] [address]- 8975 Aug, [facility] [place] [facility] [address] [id number] [place] [address]- 7843 Jul, [facility] [place] [facility] [address] [id number] [place] [address]- 4128 Jul, [facility] [place] [facility] [address] [id number] [place] [address]- 8268 Jul, [facility] [place] [facility] [address] [id number] [place] [address]- 3960 Jul, [facility] [place] [facility] [address] [id number] [place] [address]- 4126 Jul, [facility] [place] [facility] [address] [id number] [place] [address]- 1374 Jul, [facility] [place] [facility] [address] [id number] [place] [address]- 1771 Jul, [facility] [place] [facility] [address] [id number] [place] [address]- 0220 Jul, [facility] [place] [facility] [address] [id number] [place] [address]- 9461 16 Jun, 2012 [facility] [place] [facility] [address] [id number] [place] 2828 Jun, [facility] [place] [facility] [address] [id number] [place] [address]- 2238 May, [facility] [place] [facility] [address] [id number] [place] [address]- 3880 Apr, [facility] [place] [facility] [address] [id number] [place] [address]- 0562 Mar, [facility] [place] [facility] [address] [id number] [place] [address]- 6623 Mar, [facility] [place] [facility] [address] [id number] [place] [address]- 2182 Mar, [facility] [place] [facility] [address] [id number] [place] [address]- 0620 Mar, [facility] [place] [facility] [address] [id number] [place] [address]- 3904 Jan, [facility] [place] [facility] [address] [id number] [place] [address]- 2085 Nov, [facility] [place] [facility] [address] [id number], [place] [address]- 3302 Nov, [facility] [place] [facility] [address] [id number] [place] [address]- 4499 Nov, [facility] [place] [facility] [address] [id number] [place] 8432 Oct, [facility] [place] [facility] [address] [id number] [place] [address]- 6867 Sep, [facility] [place] [facility] [address] [address]- 1326 Sep, [facility] [address] [address]- 9007 Aug, [facility] [address] 0570 Aug, [facility] [address], [place] [address]- 3078 Aug, [facility] [id number], [place] [address]- 1276 Aug, [facility] [id number] [place] [address] 53965- 2857 Jul, [facility] [id number] [place] [address] 16852- 4675 May, [facility] [id number] [place] [address] 72995- 9874 Jan, [facility] [id number] [place] [address] 96309- 2211 Nov, [facility] [id number] [place] [address] 53079- 0851 Apr, [facility] [address], [place] [address]- 7659 Dec, [facility] [address] 4555 Nov, IMMUNIZATIONS No Known Immunizations SOCIAL HISTORY Never Assessed REASON FOR VISIT referral to [facility] PLAN OF CARE VITAL SIGNS MEDICATIONS Unknown Medications RESULTS No Results PROCEDURES No Known procedures INSTRUCTIONS MEDICATIONS ADMINISTERED No Known Medications MEDICAL (GENERAL) HISTORY Type Description Date Medical History Cardiovascular uvxygkoj-FBJ-Wfqvavkm, 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 Mendoza Medical History Stress test 03/07/13-Dr. Kelly Dietrich normal Medical History Hypertension Medical History Asthma Medical History Gastrointestinal Disorder--IBS, GERD, Hx of fatty liver Medical History Hernia 1979 Medical History Cervical dysplasia 02/16-Pap LGSIL/Michie-mild dysplasia Medical History Hyperlipidemia Medical History Rheumatoid [...] Kidney injury 07/10/15-07/11/2015 Hospitalization History Symptomatic Hypokalemia/Nause-Via [facility] 05/13/16 Hospitalization History Stroke 05/03/2017 Hospitalization History stroke 08/24/2017--09/01/2017
[2018-06-12] MEDS ORDERED: RT-ALBUTEROL/IPRATROPIUM 3 ML (DUONEB) VIAL INH ONE (16:00)
--- OUTSIDE RECORDS SUMMARY | 2018-06-12 16:00 | XMS REPORT ---
Author Author LORI SNOWDEN [facility] Address [address] [place] [address] Care Team Providers Care Coverage Specialist Name Role Phone LORI SNOWDEN Unavailable PROBLEMS Type Condition ICD9-CM Code WIJ06-TI Code Onset Dates Condition Status SNOMED Code Problem ADHD (attention deficit hyperactivity disorder), combined type F90.2 Active 33654686 Problem Other jail (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 Active 013012485 Problem Generalized anxiety disorder F41.1 Active 19639111 Problem Cerebrovascular accident (CVA), unspecified mechanism I63.9 Active 828952951 Problem Asthma J45.909 Active 784769947 Problem Dysthymic disorder F34.1 Active 81901466 Problem Rheumatoid arthritis involving multiple sites, unspecified rheumatoid factor presence M06.9 Active 157517253 Problem Sleep apnea in adult G47.30 Active 59190308 Problem Seasonal allergies J30.2 Active 988301318 Problem Mild episode of recurrent major depressive disorder F33.0 Active 629853560 Problem Rheumatoid arthritis M06.9 Active 10121714 Problem Chronic pain syndrome G89.4 Active 655469430 Problem Hypertension I10 Active 56266219 Problem Anxiety F41.9 Active 45619641 Problem Gastroesophageal reflux disease with esophagitis K21.0 Active 356519020 Problem Panic attacks F41.0 Active 355656853 Problem Irritable bowel syndrome with diarrhea K58.0 Active 766673808 Problem Mixed hyperlipidemia E78.2 Active 500254342 Problem Hyperinsulinemia E16.1 Active 85384935 Problem Weight gain R63.5 Active 9021008 Problem Arteriosclerotic coronary artery disease I25.10 Active 30865007 Problem Chronic obstructive pulmonary disease, unspecified J44.9 Active [id number] Problem Obstructive sleep apnea G47.33 Active 09064783 Problem Neuropathy G62.9 Active 879024582 Problem Other insomnia G47.09 Active 595862277 ALLERGIES Substance Reaction Event Type Date Status Breo Ellipta Nausea, dizziness Drug Allergy Oct, Active Solu-Medrol rash, swelling Drug Allergy Oct, Active Paxil Unknown Drug Allergy Oct, Active Hydrocodone-Acetaminophen hives Drug Allergy Oct, Active Doxycycline Hyclate local swellling Drug Allergy Oct, Active Codeine Sulfate hives Drug Allergy Oct, Active Oxybutynin 5 Ea Tablet mouth sores Non Drug Allergy Oct, Active Iodinated Contrast Media - Iv Dye unknown Non Drug Allergy Oct, Active ENCOUNTERS Encounter Location Date Diagnosis [facility] [address] [address] Mar, [place] [address] [address]- 2794 Mar, Seasonal allergies J30.2 [place] [address] 33515- 1822 Mar, Seasonal allergies J30.2 [place] [address] 28406- 9500 February, Generalized anxiety disorder F41.1 [facility] [address] [address] February, Cough R05 and Seasonal allergies J30.2 [place] [address] 14799- 3443 February, Generalized anxiety disorder F41.1 and Mild episode of recurrent major depressive disorder F33.0 [place] [address] 38130- 2051 February, Other jail (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 ; Anxiety F41.9 ; Panic attacks F41.0 and Irritable bowel syndrome with diarrhea K58.0 [place] [address] 30556- 7645 February, [facility] [address] 71128- 9517 Jan, Mixed hyperlipidemia E78.2 [facility] [address] [address] Jan, [facility] [address] [place] [id number] [place] [address], [place] [address]- 5627 Jan, [facility] [address] [place] [id number] [place] [address] 43487- 9314 Jan, [facility] [address] [place] [id number] [place] [address], [place] [address]- 0216 Jan, [facility] [address] [place] [id number] [place] [address], [place] [address]- 3038 Dec, [facility] [address] [place] [id number] [place] [address], [place] [address]- 0628 Dec, [facility] [address] [place] [id number] [place] [address], [place] [address]- 2180 Dec, [facility] [address] [place] [id number] [place] [address] 31064- 1391 Nov, Dysthymic disorder F34.1 [facility] [address] [place] [id number] [place] [address] 79484- 6507 Oct, [facility] [address] [place] [id number] [place] [address] 33040- 1107 Oct, [facility] [address] [place] [address] 19938- 6961 Oct, [facility] [address] [place] [address] 19970- 3561 Oct, Diarrhea, unspecified type R19.7 and Dysuria R30.0 [facility] [address] [place] [id number] [place] [address] 62966- 3357 Oct, [facility] [address] [place] [id number] [place] [address] 53749- 5422 Sep, [facility] [address] [place] [id number] [place] [address] [id number]- 6945 Sep, [place] [address] [place] [id number] [place] [address] 90532- 7297 Sep, Anxiety F41.[address] 83012- 6155 Sep, Cerebrovascular accident (CVA), unspecified mechanism I63.9 ; Mixed hyperlipidemia E78.2 ; Gastroesophageal reflux disease with esophagitis K21.0 and Anxiety F41.9 [place] [address] 08386- 6230 Sep, [address] 97657- 2877 Aug, Chronic obstructive pulmonary disease, unspecified J44.9 ; Asthma J45.909 ; Nausea R11.0 ; Dysthymic disorder F34.1 ; Cerebrovascular accident (CVA), unspecified mechanism I63.9 and Rheumatoid arthritis M06.9 [place] [id number] [place] [address] 35221- 7885 Aug, Nausea R11.0 ; Encounter for immunization Z23 ; Sleep apnea in adult G47.30 ; Rheumatoid arthritis involving multiple sites, unspecified rheumatoid factor presence M06.9 ; Generalized anxiety disorder F41.1 ; Dysthymic disorder F34.1 and Asthma J45.909 [place] [id number] [place] [address] 60357- 5904 Jul, [address] 54880- 5618 May, ADHD (attention deficit hyperactivity disorder), combined type F90.2 ; Generalized anxiety disorder F41.1 and Persistent depressive disorder F34.1 [place] [id number] [place] [address] 04516- 7994 May, Cerebrovascular accident (CVA), unspecified mechanism I63.9 [place] [id number] [place] [address] 24144- 9364 Apr, Mixed hyperlipidemia E78.2 and Cerebrovascular accident (CVA ), unspecified mechanism I63.9 [place] [address] [place] [id number] [place] [address] 91248- 6745 Apr, Generalized anxiety disorder F41.1 [place] [address] 09361- 8327 Apr, Bronchitis J40 and Tobacco use Z72.0 [place] [address] 42789- 0938 Apr, Mixed hyperlipidemia E78.2 [place] [address] 29728- 5011 Apr, Other jail (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 [place] [address] 48851- 4998 Apr, [place] [address] 91794- 4222 Apr, Generalized anxiety disorder F41.1 [place] [address] 58654- 9353 Apr, Obstructive sleep apnea G47.33 and Hyperinsulinemia E16.[address] 17060- 4458 Apr, ADHD (attention deficit hyperactivity disorder), combined type F90.2 ; Generalized anxiety disorder F41.1 and Persistent depressive disorder F34.1 [place] [address] [place] [id number] [place] [address] 96083- 0394 Mar, [place] [address] 16840- 7139 Mar, Generalized anxiety disorder F41.1 [place] [address] 93159- 0674 Mar, Tarsal tunnel syndrome of both lower extremities G57.53 [place] [address] 39301- 1893 February, [facility] [address] [place] [id number] [place] [address] 22826- 5103 February, [facility] [address] [place] [id number] [place] [address] 90691- 3829 February, Asthma J45.909 [facility] [address] [place] [id number] [place] [address] 21619- 8269 February, Generalized anxiety disorder F41.1 [facility] [address] 57741- 9587 February, Hypoxemia R09.02 ; Hyperglycemia R73.9 ; Rheumatoid arthritis M06.9 and Generalized anxiety disorder F41.1 [place] [address] 25471- 3972 February, [place] [address] 14680- 3277 Jan, Chronic obstructive pulmonary disease, unspecified J44.9 [place] [address] 48332- 0451 Jan, Chronic pain syndrome G89.4 [place] [address] [place] [id number] [place] [address] 72260- 7221 Jan, Hypoxemia R09.02 [place] [address] 56139- 7041 Jan, [place] [address] 08620- 0532 Jan, Chronic obstructive pulmonary disease, unspecified J44.9 ; Hypoxemia R09.02 ; Other insomnia G47.09 and Left anterior shoulder pain M25.512 [place] [address] 19274- 6721 Jan, Numbness in feet R20.0 and Neuropathy G62.9 [place] [address] [place] [id number] [place] [address] 03490- 0918 Jan, [place] [address] [address]- 0954 Dec, Acute pain of left shoulder M25.512 [facility] [address] [place] [id number] [place] [address] 07279- 5186 Dec, Acute pain of left shoulder M25.512 [facility] [address] [place] [id number] [place] [address] 30036- 4716 Dec, Generalized anxiety disorder F41.1 [facility] [address] [place] [id number] [place] [address] 35251- 3397 Dec, Generalized anxiety disorder F41.1 [facility] [address] [place] [id number] [place] [address] 80177- 1897 Nov, ADHD (attention deficit hyperactivity disorder), combined type F90.2 ; Generalized anxiety disorder F41.1 and Persistent depressive disorder F34.1 [facility] [address] [place] [id number] [place] [address] 29686- 1917 Nov, Acute pain of left shoulder M25.512 [facility] [address] [place] [id number] [place] [address] 04677- 4333 Nov, ADHD (attention deficit hyperactivity disorder), combined type F90.2 ; Generalized anxiety disorder F41.1 and Persistent depressive disorder F34.1 [facility] [address] [place] [address] 86694- 8638 Nov, Chronic pain syndrome G89.4 [facility] [address] [place] [id number] [place] [address] 53863- 9035 13 Nov, 2016 Chronic pain syndrome G89.4 [facility] [address] [place] [id number] [place] [address] 45089- 8069 08 Nov, 2016 Acute pain of left shoulder M25.512 [facility] [address] [place] [address] 04632- 8919 07 Nov, 2016 Generalized anxiety disorder F41.1 [facility] [address] [place] [id number] [place] [address] 73437- 8939 Nov, Acute pain of left shoulder M25.512 [place] [address] [place] [id number] [place] [address] 15823- 1768 Nov, ADHD (attention deficit hyperactivity disorder), combined type F90.2 ; Generalized anxiety disorder F41.1 and Persistent depressive disorder F34.1 [place] [address] [place] [id number] [place] [address] 46622- 2472 Nov, Acute pain of left shoulder M25.512 ; Generalized anxiety disorder F41.1 ; Chronic pain syndrome G89.4 ; Hyperinsulinemia E16.1 ; Pain of left foot M79.672 and Pain in right foot M79.671 [place] [address] [place] [id number] [place] [address] 88342- 7931 Oct, ADHD (attention deficit hyperactivity disorder), combined type F90.2 ; Generalized anxiety disorder F41.1 and Dysthymic disorder F34.1 [place] [address] [place] [id number] [place] [address] 18257- 6645 Sep, [place] [address] [place] [id number] [place] [address] 99099- 6273 Sep, [place] [address] [place] [id number] [place] [address] 27044- 4655 Sep, Routine gynecological examination V72.31 ; Cervical cancer screening Z12.4 ; Breast cancer screening Z12.39 ; Colon cancer screening Z12.11 ; Hypokalemia E87.6 ; Herpes simplex type 1 infection B00.9 and Abscess of right axilla L02.411 [place] [address] [place] [id number] [place] [address] 12909- 0145 Sep, [place] [address] [place] [id number] [place] [address] 04684- 3908 Sep, ADHD (attention deficit hyperactivity disorder), combined type F90.2 ; Generalized anxiety disorder F41.1 and Dysthymic disorder F34.1 [place] [address] [place] [id number] [place] [address] 84314- 9703 Aug, [facility] [address] [place] [id number] [place] [address] 98285- 8717 Aug, [place] [address] [place] [id number] [place] [address] 36969- 5176 Aug, Generalized anxiety disorder F41.1 [place] [address] 66410- 2962 Aug, ADHD (attention deficit hyperactivity disorder), combined type F90.2 ; Generalized anxiety disorder F41.1 and Dysthymic disorder F34.1 [place] [address] 80441- 8967 Jul, Chronic pain syndrome G89.4 ; Hypertension I10 ; Hypokalemia E87.6 ; Asthma J45.909 and Nausea R11.0 [place] [address] 76688- 2244 Jul, [place] [address] [place] [id number] [place] [address] 35476- 4226 Jul, Asthma J45.909 [place] [address] [place] [id number] [place] [address] 96498- 8881 Jul, ADHD (attention deficit hyperactivity disorder), combined type F90.2 ; Generalized anxiety disorder F41.1 and Dysthymic disorder F34.1 [place] [address] [place] [id number] [place] [address] 97126- 3657 Jul, [place] [address] [place] [id number] [place] [address] 35953- 4610 Jul, Hypertension I10 ; Arteriosclerotic coronary artery disease I25.10 ; Mixed hyperlipidemia E78.2 ; 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 and Hyperglycemia R73.9 [place] [address] [place] [id number] [place] [address] 59751- 4370 Jun, Hypokalemia E87.6 and Hyperglycemia R73.9 [place] [address] [place] [id number] [place] [address] 39099- 4795 14 Jun, 2016 [place] [address] 85159- 5761 Jun, Abnormal kidney function N28.9 [place] [address] 52229- 6141 Jun, [place] [address] 08000- 0904 Jun, ADHD (attention deficit hyperactivity disorder), combined type F90.2 ; Generalized anxiety disorder F41.1 and Dysthymic disorder F34.1 [place] [address] 40413- 6722 Jun, Generalized anxiety disorder F41.1 and Dysthymic disorder F34.1 [place] [address] 43744- 9759 Jun, Hypokalemia E87.6 [place] [address] 84921- 3656 May, Hypokalemia E87.6 ; Vertigo R42 and Hyperinsulinemia E16.[address] 62215- 8356 May, [place] [address] 07096- 0781 May, Abnormal kidney function N28.9 ; Hyperinsulinemia E16.1 and Nausea R11.[address] 25611- 0419 May, Hypokalemia E87.6 ; Nausea R11.0 ; Epigastric pain R10.13 ; Dehydration E86.0 ; Diaphoresis R61 and Right arm pain M79.601 [place] [address] 14648- 0682 May, [place] [address] [address]- 7531 May, Hypokalemia E87.6 [place] [address] [place] [id number] [place] [address] 59929- 5964 May, Hypokalemia E87.6 [place] [address] [place] [id number] [place] [address] 45020- 8227 Apr, [place] [address] [place] [id number] [place] [address] 49912- 4567 Apr, ADHD (attention deficit hyperactivity disorder), combined type F90.2 ; Generalized anxiety disorder F41.1 and Dysthymic disorder F34.1 [place] [address] [place] [id number] [place] [address] 38416- 7041 Apr, Right arm pain M79.601 and Hyperinsulinemia E16.1 [place] [address] [place] [id number] [place] [address] 10233- 2382 Mar, [place] [address] [place] [id number] [place] [address] 72113- 5530 Mar, [place] [address] [place] [id number] [place] [address] 36530- 4095 Mar, Hyperinsulinemia E16.1 ; Hyperlipidemia, unspecified hyperlipidemia type E78.5 ; Central venous catheter in place Z78.9 ; Generalized anxiety disorder F41.1 and Urinary tract infection, site not specified N39.0 [place] [address] [place] [address] 17147- 6810 Mar, ADHD (attention deficit hyperactivity disorder), combined type F90.2 ; Generalized anxiety disorder F41.1 and Dysthymic disorder F34.1 [place] [address] [place] [address] 88336- 5917 February, ADHD (attention deficit hyperactivity disorder), combined type F90.2 ; Generalized anxiety disorder F41.1 and Dysthymic disorder F34.1 [place] [address] [place] [address] 95110- 9068 February, [place] [address] [address]- 8592 February, [place] [address] [place] [address] 32215- 8758 February, Hypertension I10 and Weight gain R63.5 [place] [address] [place] [id number] [place] [address] 07515- 5962 February, Major depressive disorder, recurrent, moderate F33.1 and Generalized anxiety disorder F41.1 [place] [address] [place] [address] 08262- 7028 February, ADHD (attention deficit hyperactivity disorder), combined type F90.2 ; Generalized anxiety disorder F41.1 and Dysthymic disorder F34.1 [place] [address] [place] [address] 19829- 5442 February, [place] [address] [place] [id number] [place] [address] 06417- 4141 February, Asthma J45.909 ; Weight gain R63.5 ; Hypertension I10 ; Rheumatoid arthritis M06.9 and Chronic pain syndrome G89.4 [place] [address] [address]- 2418 Jan, ADHD (attention deficit hyperactivity disorder), combined type F90.2 ; Generalized anxiety disorder F41.1 and Dysthymic disorder F34.1 [place] [address] [address]- 2934 Dec, ADHD (attention deficit hyperactivity disorder), combined type F90.2 ; Generalized anxiety disorder F41.1 and Dysthymic disorder F34.1 [place] [address] [address]- 6405 Dec, [place] [address] [address]- 2735 Nov, [place] [address] [place] [address] [address]- 4436 Nov, [facility] [id number] [address]- 7396 Nov, [facility] [address] [address]- 7696 Nov, [facility] [address] 4500 Oct, [facility] [id number] [place] [address]- 7175 Oct, [facility] [id number] [place]- 0331 Oct, [facility] [address] [address]- 3339 Sep, [facility] [address] [address]- 4654 Sep, [facility] [address] [address]- 5195 Sep, Agoraphobia with panic disorder F40.01 ; Attention-deficit hyperactivity disorder, combined type F90.2 and Dysthymic disorder F34.1 [facility] [address] [address]- 1817 Aug, [facility] [address] [address]- 3737 Aug, [facility] [address] [address]- 0745 Aug, [facility] [address] [address]- 8848 Aug, Dysthymic disorder F34.1 ; Generalized anxiety disorder F41.1 and ADHD (attention deficit hyperactivity disorder), combined type F90.2 [facility] [address] [address]- 1514 Aug, ADHD (attention deficit hyperactivity disorder), combined type F90.2 ; Generalized anxiety disorder F41.1 and Dysthymic disorder F34.1 [place] [address] [place] [id number] [place] [address] 95271- 9181 Jul, Urinary tract infection, site not specified N39.0 ; Hypotension, unspecified I95.9 and Breast cancer screening Z12.39 [place] [address] [place] [id number] [place] [address] 59635- 7486 Jul, [place] [address] [place] [id number] [place] [address] 55817- 2867 Jul, [place] [address] [place] [id number] [place] [address] 55622- 4620 Jul, Urinary tract infection, site not specified N39.0 ; Nausea R11.0 ; Gastroenteritis K52.9 ; Renal failure N19 and Other hypotension I95.89 [place] [address] [place] [id number] [place] [address] 50492- 9791 Jul, [facility] [address] [id number] [place] [address] 96940- 1187 Jul, [place] [address] [id number] [place] [address] 71000- 8590 Jul, [place] [address] [id number] [place] [address] 43068- 5060 Jun, [place] [address] [place] [id number] [place] [address] 91596- 5916 Jun, Major depression in partial remission 296.25 ; Generalized anxiety disorder 300.02 and ADHD, predominantly inattentive type 314.01 [place] [address] [id number] [place] [address] 70191- 1968 May, [place] [address] [place] [id number] [place] [address] 43671- 7820 Apr, Major depressive disorder, recurrent episode, severe, without mention of psychotic behavior 296.33 ; Agoraphobia with panic disorder 300.21 and Generalized anxiety disorder 300.02 [facility] [address] [address]- 1032 Apr, ADHD (attention deficit hyperactivity disorder), combined type 314.01 ; Generalized anxiety disorder 300.02 and Dysthymic disorder 300.4 [facility] [address] [place] [id number] [place] [address] 11786- 5889 Apr, CAD (coronary artery disease) 414.00 ; HTN (hypertension) 401.9 and Tobacco use 305.1 [place] [address] [place] [id number] [place] [address] 84831- 7348 Apr, [facility] [address] [place] [id number] [place] [address] 50590- 9321 Mar, ADHD (attention deficit hyperactivity disorder), combined type 314.01 ; Generalized anxiety disorder 300.02 ; Dysthymic disorder 300.4 ; No condition on [place] V71.09 ; Rheumatoid arthritis 714.0 ; Incontinence 788.30 ; Irritable bowel syndrome 564.1 ; Osteoporosis 733.00 and Chronic pain 338.29 [facility] [address] [id number] [place] [address] 00909- 9826 Mar, Agoraphobia with panic disorder 300.21 and Major depressive disorder, recurrent episode, moderate 296.32 [facility] [id number] [address] Mar, [facility] [id number] [place] [id number]- [phone] February, [facility] [id number] [place] [id number] February, Agoraphobia with panic disorder 300.21 and Major depressive disorder, recurrent episode, moderate 296.32 [facility] [id number] [place] [address]- [address] February, [facility] [id number] [place] [id number]- [address] Jan, [facility] [place] [facility] [address] [id number] [place] [address] Jan, [facility] [place] [facility] [address] [id number] [place] [address] Dec, [facility] [place] [facility] [address] [id number] [place] [address] Dec, [facility] [place] [facility] [address] [id number] [place] [address] Dec, [facility] [place] [facility] [address] [id number] [place] [address] Dec, [facility] [place] [facility] [address] [id number] [place] [address] Dec, [facility] [place] [facility] [address] [id number] [place] [address] Dec, [facility] [place] [facility] [address] [id number] [place] [address] Nov, [facility] [place] [facility] [address] [id number] [place] [address] 130[address] Nov, [facility] [place] [facility] [address] [id number] [place] [address] Nov, [facility] [place] [facility] [address] [facility] [id number] [place] [address] Nov, [facility] [place] [facility] [address] [id number] [place] [address] Nov, 2014 [facility] [place] [facility] [address] [id number] [place] [address] 289[address] Nov, 2014 [facility] [place] [facility] [address] [id number] [place] [address] 8475 Nov, 2014 [facility] [place] [facility] [address] [facility] [id number] [place] [address] Nov, 2014 [facility] [place] [facility] [address] [facility] [id number] [place] [address]- [address]29 Oct, [facility] [place] [facility] [address] [id number] [place] [address] 6854 Oct, [facility] [place] [facility] [address] [id number] [place] [address] 2168 Oct, [facility] [place] [facility] [address] [id number] [place] [address] 2285 Oct, [facility] [place] [facility] [address] [id number] [place] [address] 7007 Oct, [facility] [place] [facility] [address] [id number] [place] [address] 4071 Oct, [facility] [place] [facility] [address] [id number] [place] [address] 8[address] Sep, [facility] [place] [facility] [address] [id number] [place] [address] 1266 Sep, [facility] [place] [facility] [address] [id number] [place] [address]- 5534 Sep, [facility] [place] [facility] [address] [id number] [place] [address] 6028 Sep, [facility] [place] [facility] [address] [id number] [place] [address] 6967 Sep, [facility] [place] [facility] [address] [id number] [place] [address]- 0406 Sep, [facility] [place] [facility] [address] [id number] [place] [address] 9864 Sep, [facility] [place] [facility] [address] [id number] [place] [address] 3587 Aug, [facility] [place] [facility] [address] [id number] [place] [address] 8443 Aug, [facility] [place] [facility] [address] [id number] [place] [address] 8640 Aug, [facility] [place] [facility] [address] [id number] [place] [address] 37[address] Aug, [facility] [place] [facility] [address] [id number] [place] [address]- 4205 Aug, [facility] [place] [facility] [address] [id number] [place] [address] Aug, [facility] [place] [facility] [address] [id number] [place] [address] 3521 Jul, [facility] [place] [facility] [address] [id number] [place] [address]- 5966 Jul, [facility] [place] [facility] [address] [id number] [place] [address]- 0210 Jul, [facility] [place] [facility] [address] [id number] [place] [address]- 1708 Jul, [facility] [place] [facility] [address] [id number] [place] [address] 5[address] Jul, [facility] [place] [facility] [address] [id number] [place] [address] 3264 Jul, [facility] [place] [facility] [address] [id number] [place] [address] 7063 Jun, [facility] [place] [facility] [address] [id number] [place] [address]- 9295 Jun, [facility] [place] [facility] [address] [id number] [place] [address]- 6756 May, [facility] [place] [facility] [address] [id number] [place] [address]- 6098 May, [facility] [place] [facility] [address] [id number] [place] [address]- 2754 Apr, [facility] [place] [facility] [address] [id number] [place] [address]- 2546 Apr, [facility] [place] [facility] [address] [id number] [place] [address]- 9988 Apr, [facility] [place] [facility] [address] [id number] [place] [address]- 9338 Apr, [facility] [place] [facility] [address] [id number] [place] [address]- [address]381 Mar, [facility] [place] [facility] [address] [id number] [place] [address]- 4496 Mar, [facility] [place] [facility] [address] [id number] [place] [address]- 6118 Mar, [facility] [place] [facility] [address] [id number] [place] [address]- 8627 Mar, [facility] [place] [facility] [address] [id number] [place] [address]- 7598 February, [facility] [place] [facility] [address] [id number] [place] [address]- 5723 February, [facility] [place] [facility] [address] [id number] [place] [address]- 9627 February, [facility] [place] [facility] [address] [id number] [place] [address] February, [facility] [place] [facility] [address] [id number] [place] [address]- 3048 February, [facility] [place] [facility] [address] [id number] [place] [address]- 4376 February, [facility] [place] [facility] [address] [id number] [place] [address]- 6855 Jan, [facility] [place] [facility] [address] [id number] [place] [address] 3619 Jan, [facility] [place] [facility] [address] [id number] [place] [address]- 1152 Dec, [facility] [place] [facility] [address] [id number] [place] [address] 3908 Dec, [facility] [place] [facility] [address] [id number] [place] [address] 6202 Nov, [facility] [address] [id number] [place] [address] 8689 Nov, [facility] [address] [id number] [place] [address]- 8026 Oct, [facility] [address] [id number] [place] [address]- 2790 Oct, [facility] [address] [id number] [place] [address] 3996 Oct, [facility] [address] [id number] [place] [address]- 4270 Oct, [facility] [address] [id number] [place] [address]- 4737 Sep, [facility] [address] [id number] [place] [address]- 2063 Sep, [facility] [address] [id number] [place] [address]- 8301 Sep, [facility] [address] [id number] [place] [address]- 6419 Sep, [facility] [address] [facility] [id number] [place] [address]- 7622 Sep, [facility] [address] [id number] [place] [address]- 4326 Sep, [facility] [address] [id number] [place] [address]- 3801 Sep, [facility] [place] [facility] [address] [id number] [place] [address]- 9536 Sep, [facility] [address] [id number] [place] [address]- 2546 Aug, [facility] [address] [id number] [place] [address]- 3685 Aug, [facility] [place] [facility] [address] [id number] [place] [address]- 8595 Aug, [facility] [place] [facility] [address] [id number] [place] [address]- 0618 Aug, [facility] [place] [facility] [address] [id number] [place] [address]- 0972 Aug, [facility] [place] [facility] [address] [id number] [place] [address]- 0816 Aug, [facility] [place] [facility] [address] [id number] [place] [address]- 2045 Aug, [facility] [place] [facility] [address] [id number] [place] [address]- 6379 Aug, [facility] [place] [facility] [address] [id number] [place] [address]- 5201 Aug, [facility] [place] [facility] [address] [id number] [place] [address]- 0356 Jul, [facility] [place] [facility] [address] [id number] [place] [address]- 3692 Jun, [facility] [place] [facility] [address] [id number] [place] [address]- 2799 May, [facility] [place] [facility] [address] [id number] [place] [address]- 1905 May, [facility] [place] [facility] [address] [id number] [address]- 4487 May, [facility] [place] [facility] [address] [id number] [place] [address]- 0764 Apr, [facility] [place] [facility] [address] [id number] [place] [address]- 4962 Mar, [facility] [place] [facility] [address] [id number] [place] [address]- 5420 February, [facility] [place] [facility] [address] [id number] [place] [address]- 3163 17 Oct, 2012 [facility] [address] [id number] [place] [address]- 7677 16 Oct, 2012 [facility] [place] [facility] [address] [id number] [place] [address]- 8432 Oct, [facility] [place] [facility] [address] [id number] [place] [address]- 0502 Oct, [facility] [place] [facility] [address] [id number] [place] [address]- 0685 Oct, [facility] [place] [facility] [address] [id number] [place] [address]- 8595 Oct, [facility] [place] [facility] [address] [id number] [place] [address]- 9284 Sep, [facility] [address] [id number] [place] [address]- 8515 Sep, [facility] [place] [facility] [address] [id number] [place] [address]- 6831 Aug, [facility] [place] [facility] [address] [id number] [place] [address]- 1673 Aug, [facility] [place] [facility] [address] [facility] [id number] [place] [address]- 1321 Jul, [facility] [place] [facility] [address] [id number] [place] [address]- 0454 Jul, [facility] [place] [facility] [address] [id number] [address]- 9257 Jul, [facility] [place] [facility] [address] [id number] [place] [address]- 8875 Jul, [facility] [place] [facility] [address] [id number] [place] [address]- 8005 Jul, [facility] [place] [facility] [address] [id number] [place] [address]- 4288 Jul, [facility] [place] [facility] [address] [id number] [place] [address]- 5797 Jul, [facility] [place] [facility] [address] [id number] [place] [address]- 5553 Jul, [facility] [place] [facility] [address] [id number] [place] [address]- 7600 16 Jun, 2012 [facility] [place] [facility] [address] [id number] [place] [address]- 3838 Jun, [facility] [place] [facility] [address] [id number] [place] [address]- 3260 May, [facility] [place] [facility] [address] [id number] [place] [address]- 9608 Apr, [facility] [place] [facility] [address] [id number] [place] [address]- 4375 Mar, [facility] [place] [facility] [address] [id number] [place] [address]- 0257 Mar, [facility] [place] [facility] [address] [id number] [place] [address]- 9267 Mar, [facility] [place] [facility] [address] [id number] [place] [address]- 7274 Mar, [facility] [place] [facility] [address] [id number] [place] [address]- 1611 Jan, [facility] [place] [facility] [address] [id number] [place] [address]- 7508 Nov, [facility] [place] [facility] [address] [id number] [place] [address]- 2575 Nov, [facility] [place] [facility] [address] [id number] [place] [address]- 9432 Nov, [facility] [place] [facility] [address] [id number] [place] [address]- 1416 Oct, [facility] [place] [facility] [address] [id number] [address]- 2546 Sep, [facility] [address] [id number] [address] 2546 Sep, [facility] [id number] [address] 2546 Aug, [facility] [id number] [address] 2546 Aug, [facility] [id number] [address] 2546 Aug, [facility] [id number] [address] 2546 Aug, [facility] [id number] [address] 2546 Jul, [facility] [id number] [address]- 1316 May, [facility] [id number] [address] 2546 Jan, [facility] [id number] [address]- 5386 Nov, [facility] [id number] [address] 2546 Apr, [facility] [address] [id number] [address]- 9356 Dec, [facility] [id number] [address] 2546 Nov, IMMUNIZATIONS No Known Immunizations SOCIAL HISTORY Never Assessed REASON FOR VISIT Hypertension-Emery DONG, PT also has concerns with feeling ill and diarrhia PLAN OF CARE Activity Details Follow Up 4 Weeks Reason:diarrhea VITAL SIGNS Height 67 in 2017-10-18 Weight 199.7 lbs 2017-10-18 Temperature 98.8 degrees Fahrenheit 2017-10-18 Heart Rate 81 bpm 2017-10-18 Respiratory Rate 20 2017-10-18 Oximetry 96 % 2017-10-18 BMI 31.27 kg/m2 2017-10-18 Blood pressure systolic 118 mmHg 2017-10-18 Blood pressure diastolic 70 mmHg 2017-10-18 MEDICATIONS Medication Instructions Dosage Frequency Start Date End Date Duration Status Metoprolol Tartrate 25 MG Orally Twice a day 1 tablet with food 12h Active Pantoprazole Sodium 40 mg Orally Once a day 1 tablet 24h Sep, 90 days Active Advair Diskus 100-50 MCG/DOSE Inhalation Twice a day 1 puff 12h Jul, Active Xeljanz 5 mg 1 Tablet by Oral route 2 times per day 11 Dec, 2013 Active Tramadol HCl 50 mg Orally 4 times a day PRN PAIN 1-2 tablets Active Ventolin HFA 108 (90 Base) MCG/ACT Inhalation every 6 hrs 2 puffs as needed 6h Aug, Active Zofran 4 MG Orally 3 times a day 1 tablet 8h May, 7 Active Questran 4 GM/DOSE Orally Twice a day 1 scoop 12h Oct, 30 day(s ) Active Venlafaxine HCl ER 150 MG Orally Once a day 1 capsule with food 24h Aug 30 day(s) Active Trulicity 1.5 MG/0.5ML Subcutaneous once weekly INJECT 0.5 MLS SUBCUTANEOUSLY ONCE A WEEK 28 Active Effexor XR 75 MG Orally twice a day 1 capsule with food 12h Active Albuterol Sulfate (2.5 MG/3ML) 0.083% Inhalation every 4 hours 3 ml as needed for cough or wheeze 4h 13 Jul, 2014 Active Crestor 10 mg Orally Once a day 1 tablet 24h Aug, Active Cyclobenzaprine HCl 10 MG Orally 2 times a day 1 tablet as needed 12h Jul, Active Gabapentin 600 MG Orally Three times a day 1 capsule 8h 07 Nov, 2016 Active Xanax 0.5 MG Orally Twice a day 1 tablet 12h Sep, 28 days Active Vitamin D3 2000 UNIT Orally Once a day 1 capsule 24h Not-Taking Clopidogrel Bisulfate 75 MG Orally Once a day 1 tablet 24h 30 days Active RESULTS No Results PROCEDURES Procedure Date Ordered Result Body Site MEASURE BLOOD OXYGEN LEVEL Oct 18, 2017 URINALYSIS, AUTO, W/O SCOPE Oct 18, 2017 [facility] VISIT ESTABLISHED PATIENT Oct 18, 2017 [facility] Oct [facility], 2017 VENIPUNCT, ROUTINE* Oct 18, 2017 INSTRUCTIONS MEDICATIONS ADMINISTERED No Known Medications MEDICAL (GENERAL) HISTORY Type Description Date Medical History Cardiovascular pbyzabrh-TYZ-Prssthmr, non-obstructive per HC ( 01/2011) Dr. Mendoza Medical History Stress test 03/07/13-Dr. Kelly Dietrich normal Medical History Hypertension Medical History Asthma Medical History Gastrointestinal Disorder--IBS, GERD, Hx of fatty liver Medical History Hernia 1978 Medical History Cervical dysplasia 02/16-Pap LGSIL/[place]-mild dysplasia Medical History Hyperlipidemia Medical History Rheumatoid [...] Kidney injury 07/10/15-07/11/2015 Hospitalization History Symptomatic Hypokalemia/Nause-[facility]ia [facility] 05/13/16 Hospitalization History Stroke 05/03/2017 Hospitalization History stroke 08/24/2017--09/01/2017
--- OUTSIDE RECORDS SUMMARY | 2018-06-12 16:00 | XMS REPORT ---
Author Author LORI SNOWDEN Organization [facility] Address [address] [place] [address] Care Team Providers Care Software Installer Name Role Phone LORI SNOWDEN Unavailable PROBLEMS Type Condition ICD9-CM Code XOE93-ZY Code Onset Dates Condition Status SNOMED Code Problem ADHD (attention deficit hyperactivity disorder), combined type F90.2 Active 91804258 Problem Other penitentiary (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 Active 398804819 Problem Generalized anxiety disorder F41.1 Active 90202367 Problem Cerebrovascular accident (CVA), unspecified mechanism I63.9 Active 438105407 Problem Asthma J45.909 Active 595054731 Problem Dysthymic disorder F34.1 Active 73119556 Problem Rheumatoid arthritis involving multiple sites, unspecified rheumatoid factor presence M06.9 Active 476768062 Problem Sleep apnea in adult G47.30 Active 53883734 Problem Seasonal allergies J30.2 Active 426276298 Problem Mild episode of recurrent major depressive disorder F33.0 Active 531045499 Problem Rheumatoid arthritis M06.9 Active 14881001 Problem Chronic pain syndrome G89.4 Active 130770909 Problem Hypertension I10 Active 77212132 Problem Anxiety F41.9 Active 81691027 Problem Gastroesophageal reflux disease with esophagitis K21.0 Active 188707898 Problem Panic attacks F41.0 Active 782331655 Problem Irritable bowel syndrome with diarrhea K58.0 Active 478798969 Problem Mixed hyperlipidemia E78.2 Active 107626302 Problem Hyperinsulinemia E16.1 Active 76458344 Problem Weight gain R63.5 Active 3214533 Problem Arteriosclerotic coronary artery disease I25.10 Active 68759786 Problem Chronic obstructive pulmonary disease, unspecified J44.9 Active [id number] Problem Obstructive sleep apnea G47.33 Active 66406816 Problem Neuropathy G62.9 Active 093609244 Problem Other insomnia G47.09 Active [id number] ALLERGIES No Information ENCOUNTERS Encounter Location Date Diagnosis [facility] [id number] [place] [address] 21858- 5166 May, [facility] [id number] [place] [address] 36378- 8777 Mar, Mild episode of recurrent major depressive disorder F33.0 [facility] [address] 26061- 1181 Mar, Mild episode of recurrent major depressive disorder F33.0 and Generalized anxiety disorder F41.1 [facility] [address] 42711- 5452 Mar, Seasonal allergies J30.2 [facility] [address] 52748- 2764 Mar, Seasonal allergies J30.2 [facility] [address] 00737- 0069 February, Generalized anxiety disorder F41.1 [facility] [id number] [place] [address] 55374 -0920 February, Cough R05 and Seasonal allergies J30.2 [facility] [id number] [place] [address] 40040- 5880 February, Generalized anxiety disorder F41.1 and Mild episode of recurrent major depressive disorder F33.0 [facility] [id number] [place] [address] 41179- 0363 February, Other penitentiary (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 ; Anxiety F41.9 ; Panic attacks F41.0 and Irritable bowel syndrome with diarrhea K58.0 [facility] [id number] [place] [address] 08091- 9662 February, [facility] [id number] [place] [address] 43753- 6606 Jan, Mixed hyperlipidemia E78.2 [facility] [address] 75171- 6142 Jan, [facility] [address] [place] [address] 9059 Jan, [facility] [id number] [place] [address], [place] [address]- 1386 Jan, [facility] [id number] [place] [address]- 9529 Jan, [facility] [id number] [place] [address], [place] [address]- 1730 Dec, [facility] [id number] [place] [address], [place] [address]- 0957 Dec, [facility] [id number] [place] [address] 08700- 3882 Dec, [facility] [id number] [place] [address] 881141- 8928 Nov, Dysthymic disorder F34.1 [facility] [address], [place] [address]- 0717 Oct, [facility] [id number] [place] [address] 987555- 8833 Oct, [facility] [address], [place] [address]- 5797 Oct, [facility] [id number] [place] [address] 25814- 1419 Oct, Diarrhea, unspecified type R19.7 and Dysuria R30.0 [facility] [address] [address]- 0609 Oct, [facility] [id number] [address] Sep, [facility] [address] 10[address] Sep, [facility] [id number] [place] [address] 05573- 9451 Sep, Anxiety F41.9 [facility] [id number] [place] [address] 22264- 9822 Sep, Cerebrovascular accident (CVA), unspecified mechanism I63.9 ; Mixed hyperlipidemia E78.2 ; Gastroesophageal reflux disease with esophagitis K21.0 and Anxiety F41.9 [address] [id number] [place] [address] 48563- 5142 Sep, [address] [id number] [place] [address] 96914- 7950 Aug, Chronic obstructive pulmonary disease, unspecified J44.9 ; Asthma J45.909 ; Nausea R11.0 ; Dysthymic disorder F34.1 ; Cerebrovascular accident (CVA), unspecified mechanism I63.9 and Rheumatoid arthritis M06.9 [address] [id number] [place] [address] 88672- 9815 Aug, Nausea R11.0 ; Encounter for immunization Z23 ; Sleep apnea in adult G47.30 ; Rheumatoid arthritis involving multiple sites, unspecified rheumatoid factor presence M06.9 ; Generalized anxiety disorder F41.1 ; Dysthymic disorder F34.1 and Asthma J45.909 [facility] [id number] [place] [address] 43401- 4301 Jul, [address] [id number] [place] [address] 38977- 3027 May, ADHD (attention deficit hyperactivity disorder), combined type F90.2 ; Generalized anxiety disorder F41.1 and Persistent depressive disorder F34.1 [address] [id number] [place] [address] 51106- 1041 May, Cerebrovascular accident (CVA), unspecified mechanism I63.9 [id number] [place] [address] 72074- 5259 Apr, Mixed hyperlipidemia E78.2 and Cerebrovascular accident (CVA ), unspecified mechanism I63.9 [address] [id number] [place] [address] 15614- 2960 Apr, Generalized anxiety disorder F41.1 [facility] [address] 29493- 9717 Apr, Bronchitis J40 and Tobacco use Z72.0 [facility] [address] 42517- 7668 Apr, Mixed hyperlipidemia E78.2 [facility] [address] 34972- 2940 Apr, Other penitentiary (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 [place] [address] 01676- 1058 Apr, [facility] [address] 52988- 2340 Apr, Generalized anxiety disorder F41.1 [facility] [facility] [address] 30213- 7407 Apr, Obstructive sleep apnea G47.33 and Hyperinsulinemia E16.1 [facility] [address] 95163- 2303 Apr, ADHD (attention deficit hyperactivity disorder), combined type F90.2 ; Generalized anxiety disorder F41.1 and Persistent depressive disorder F34.1 [facility] [id number] [place] [address] 85255- 3786 Mar, [facility] [id number] [place] [address] 55093- 6669 Mar, Generalized anxiety disorder F41.1 [facility] [facility] [address] 43912- 0143 Mar, Tarsal tunnel syndrome of both lower extremities G57.53 [facility] [id number] [place] [address] 65506- 5656 February, [facility] [address] 64194- 9247 February, [facility] [address], [place] [address]- 6233 February, Asthma J45.909 [facility] [id number] [place] [address] 46936- 2847 February, Generalized anxiety disorder F41.1 [facility] [id number] [place] [address] 63162- 6356 February, Hypoxemia R09.02 ; Hyperglycemia R73.9 ; Rheumatoid arthritis M06.9 and Generalized anxiety disorder F41.1 [facility] [id number] [place] [address] 91667- 0921 February, [facility] [id number] [place] [address] 17207- 7687 Jan, Chronic obstructive pulmonary disease, unspecified J44.9 [facility] [id number] [place] [address] 28721- 9694 Jan, Chronic pain syndrome G89.4 [facility] [id number] [place] [address] 56957- 7989 Jan, Hypoxemia R09.02 [facility] [id number] [place] [address] 52902- 4316 Jan, [facility] [id number] [place] [address] 69792- 6874 Jan, Chronic obstructive pulmonary disease, unspecified J44.9 ; Hypoxemia R09.02 ; Other insomnia G47.09 and Left anterior shoulder pain M25.512 [facility] [id number] [place] [address] 20818- 2731 Jan, Numbness in feet R20.0 and Neuropathy G62.9 [facility] [id number] [place] [address] 04490- 3996 Jan, [facility] [id number] [place] [address] 40942- 9159 Dec, Acute pain of left shoulder M25.512 [facility] [address], [place] [address]- 1012 Dec, Acute pain of left shoulder M25.512 [facility] [address] [place] [address] 45616- 4186 Dec, Generalized anxiety disorder F41.1 [facility] [id number] [place] [address] 23832- 8966 Dec, Generalized anxiety disorder F41.1 [facility] [id number] [place] [address] 59908- 1372 Nov, ADHD (attention deficit hyperactivity disorder), combined type F90.2 ; Generalized anxiety disorder F41.1 and Persistent depressive disorder F34.1 [facility] [id number] [place] [address] 32361- 8487 Nov, Acute pain of left shoulder M25.512 [facility] [id number] [place] [address] 94899- 6871 Nov, ADHD (attention deficit hyperactivity disorder), combined type F90.2 ; Generalized anxiety disorder F41.1 and Persistent depressive disorder F34.1 [facility] [id number] [place] [address] 14206- 7260 Nov, Chronic pain syndrome G89.4 [facility] [id number] [place] [address] 04739 2546 Nov, Chronic pain syndrome G89.4 [facility] [id number] [place] [address] 35465- 7457 08 Nov, 2016 Acute pain of left shoulder M25.512 [facility] [id number] [place] [address] 10479- 8163 Nov, Generalized anxiety disorder F41.1 [facility] [id number] [place] [address] 64929- 2416 Nov, Acute pain of left shoulder M25.512 [facility] [id number] [place] [address] 85550- 2485 Nov, ADHD (attention deficit hyperactivity disorder), combined type F90.2 ; Generalized anxiety disorder F41.1 and Persistent depressive disorder F34.1 [facility] [id number] [place] [address] 98234- 6039 Nov, Acute pain of left shoulder M25.512 ; Generalized anxiety disorder F41.1 ; Chronic pain syndrome G89.4 ; Hyperinsulinemia E16.1 ; Pain of left foot M79.672 and Pain in right foot M79.671 [place] [address] 42919- 1795 Oct, ADHD (attention deficit hyperactivity disorder), combined type F90.2 ; Generalized anxiety disorder F41.1 and Dysthymic disorder F34.1 [facility] [id number] [place] [address] 65817- 5313 Sep, [facility] [id number] [place] [address] 26604- 6478 Sep, [address] [id number] [place] [address] 33278- 9619 Sep, Routine gynecological examination V72.31 ; Cervical cancer screening Z12.4 ; Breast cancer screening Z12.39 ; Colon cancer screening Z12.11 ; Hypokalemia E87.6 ; Herpes simplex type 1 infection B00.9 and Abscess of right axilla L02.411 [facility] [id number] [place] [address] 52672- 4961 Sep, [facility] [id number] [place] [address] 84888- 2473 Sep, ADHD (attention deficit hyperactivity disorder), combined type F90.2 ; Generalized anxiety disorder F41.1 and Dysthymic disorder F34.1 [facility] [id number] [place] [address] 68406- 4375 Aug, [facility] [id number] [place] [address] 92270- 3298 Aug, [facility] [address] 18852- 6620 Aug, Generalized anxiety disorder F41.1 [facility] [id number] [place] [address] 87467- 7926 Aug, ADHD (attention deficit hyperactivity disorder), combined type F90.2 ; Generalized anxiety disorder F41.1 and Dysthymic disorder F34.1 [facility] [id number] [place] [address] 02560- 4897 Jul, Chronic pain syndrome G89.4 ; Hypertension I10 ; Hypokalemia E87.6 ; Asthma J45.909 and Nausea R11.0 [facility] [id number] [place] [address] 79937- 7214 Jul, [facility] [id number] [place] [address] 71945- 3800 Jul, Asthma J45.909 [facility] [address] 52013- 4355 Jul, ADHD (attention deficit hyperactivity disorder), combined type F90.2 ; Generalized anxiety disorder F41.1 and Dysthymic disorder F34.1 [facility] [id number] [place] [address] 28141- 4672 Jul, [facility] [id number] [place] [address] 98371- 6402 Jul, Hypertension I10 ; Arteriosclerotic coronary artery disease I25.10 ; Mixed hyperlipidemia E78.2 ; Other intermodal dispatcher (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 and Hyperglycemia R73.9 [facility] [id number] [place] [address] 87046- 9562 16 Jun, 2016 Hypokalemia E87.6 and Hyperglycemia R73.9 [facility] [id number] [place] [address] 84596- 6529 14 Jun, 2016 [facility] [id number] [place] [address] 44200- 3994 Jun, Abnormal kidney function N28.9 [facility] [id number] [place] [address] 05308- 5836 Jun, [facility] [address] 43471- 3725 Jun, ADHD (attention deficit hyperactivity disorder), combined type F90.2 ; Generalized anxiety disorder F41.1 and Dysthymic disorder F34.1 [facility] [address] 376750- 2895 Jun, Generalized anxiety disorder F41.1 and Dysthymic disorder F34.1 [facility] [place] [address] 48413- 4494 Jun, Hypokalemia E87.6 [facility] [address] 25752- 7042 May, Hypokalemia E87.6 ; Vertigo R42 and Hyperinsulinemia E16.[address] 23822- 7859 May, [facility] [address] 45831- 6907 May, Abnormal kidney function N28.9 ; Hyperinsulinemia E16.1 and Nausea R11.0 [facility] [id number] [place] [address] 87330- 1381 May, Hypokalemia E87.6 ; Nausea R11.0 ; Epigastric pain R10.13 ; Dehydration E86.0 ; Diaphoresis R61 and Right arm pain M79.601 [facility] [id number] [place] [address] 22233- 7312 May, [facility] [address] 44311- 0671 May, Hypokalemia E87.6 [facility] [address], [place] [address]- 4200 May, Hypokalemia E87.6 [facility] [address], [place] [address]- 9358 Apr, [facility] [id number] [place] [address] 29905- 4446 Apr, ADHD (attention deficit hyperactivity disorder), combined type F90.2 ; Generalized anxiety disorder F41.1 and Dysthymic disorder F34.1 [facility] [place] [id number] [place] [address] 71155- 5761 Apr, Right arm pain M79.601 and Hyperinsulinemia E16.1 [facility] [id number] [place] [address] 31245- 7308 Mar, [facility] [id number] [place] [address] 71657- 3110 Mar, [facility] [address] [place] [address] 09570- 4141 Mar, Hyperinsulinemia E16.1 ; Hyperlipidemia, unspecified hyperlipidemia type E78.5 ; Central venous catheter in place Z78.9 ; Generalized anxiety disorder F41.1 and Urinary tract infection, site not specified N39.0 [facility] [address] [place] [address] 59259- 9312 Mar, ADHD (attention deficit hyperactivity disorder), combined type F90.2 ; Generalized anxiety disorder F41.1 and Dysthymic disorder F34.1 [facility] [address] [place] [address] 88963- 9605 February, ADHD (attention deficit hyperactivity disorder), combined type F90.2 ; Generalized anxiety disorder F41.1 and Dysthymic disorder F34.1 [facility] [address], [place] [address]- 2223 February, [facility] [id number] [place] [address] 30775- 1952 February, [facility] [id number] [place] [address] 13047- 7512 February, Hypertension I10 and Weight gain R63.5 [facility] [id number] [place] [address] 04783- 4350 February, Major depressive disorder, recurrent, moderate F33.1 and Generalized anxiety disorder F41.1 [facility] [id number] [place] [address] 20462- 3329 February, ADHD (attention deficit hyperactivity disorder), combined type F90.2 ; Generalized anxiety disorder F41.1 and Dysthymic disorder F34.1 [facility] [id number] [place] [address] 62025- 8533 February, [facility] [id number] [place] [address] 58986- 2343 February, Asthma J45.909 ; Weight gain R63.5 ; Hypertension I10 ; Rheumatoid arthritis M06.9 and Chronic pain syndrome G89.4 [facility] [place] [id number] [place] [address] 22340- 2870 Jan, ADHD (attention deficit hyperactivity disorder), combined type F90.2 ; Generalized anxiety disorder F41.1 and Dysthymic disorder F34.1 [facility] [address] [place] [address] 98677- 6279 Dec, ADHD (attention deficit hyperactivity disorder), combined type F90.2 ; Generalized anxiety disorder F41.1 and Dysthymic disorder F34.1 [facility] [place] [id number] [place] [address] 31137- 7151 Dec, [facility] [place] [id number] [place] [address] 74835- 3155 Nov, [facility] [id number] [place] [address] 04953- 6250 Nov, [facility] [address], [place] [address]- 4946 Nov, [facility] [address], [place] [address]- 8773 Nov, [facility] [address], [place] [address]- 2908 Oct, [facility] [address], [place] [address]- 2633 Oct, [facility] [address], [place] [address]- 7280 Oct, [facility] [address], [place] [address]- 3564 Sep, [facility] [address], [place] [address]- 3258 Sep, [facility] [address], [place] [address]- 9225 Sep, Agoraphobia with panic disorder F40.01 ; Attention-deficit hyperactivity disorder, combined type F90.2 and Dysthymic disorder F34.1 [facility] [address], [place] [address]- 6239 Aug, [facility] [address], [place] [address]- 1502 Aug, [facility] [address], [place] [address]- 5593 Aug, [facility] [id number] [address]- 1282 Aug, Dysthymic disorder F34.1 ; Generalized anxiety disorder F41.1 and ADHD (attention deficit hyperactivity disorder), combined type F90.2 [facility] [id number] [address]- 6298 Aug, ADHD (attention deficit hyperactivity disorder), combined type F90.2 ; Generalized anxiety disorder F41.1 and Dysthymic disorder F34.1 [facility] [address], [place] [address]- 0042 Jul, Urinary tract infection, site not specified N39.0 ; Hypotension, unspecified I95.9 and Breast cancer screening Z12.39 [facility] [address], [place] [address]- 3798 Jul, [facility] [id number] [place] [address] 31585- 8751 Jul, [facility] [id number] [place] [address] 57169- 9298 Jul, Urinary tract infection, site not specified N39.0 ; Nausea R11.0 ; Gastroenteritis K52.9 ; Renal failure N19 and Other hypotension I95.89 [facility] [id number] [place] [address] 50751- 2540 Jul, [facility] [id number] [place] [address] 46389- 6969 Jul, [facility] [id number] [place] [address] 78096- 8214 Jul, [facility] [id number] [place] [address] 46074- 9913 Jun, [facility] [address] [place] [address] 29423- 2320 Jun, Major depression in partial remission 296.25 ; Generalized anxiety disorder 300.02 and ADHD, predominantly inattentive type 314.01 [facility] [address], [place] [address]- 3162 May, [facility] [id number] [place] [address] 42128- 1233 Apr, Major depressive disorder, recurrent episode, severe, without mention of psychotic behavior 296.33 ; Agoraphobia with panic disorder 300.21 and Generalized anxiety disorder 300.02 [facility] [id number] [place] [address] 41659- 4635 Apr, ADHD (attention deficit hyperactivity disorder), combined type 314.01 ; Generalized anxiety disorder 300.02 and Dysthymic disorder 300.4 [facility] [id number] [place] [address] 26397- 0389 Apr, CAD (coronary artery disease) 414.00 ; HTN (hypertension) 401.9 and Tobacco use 305.1 [facility] [address] 71106- 1399 Apr, [facility] [id number] [place] [address] 84714- 8844 Mar, ADHD (attention deficit hyperactivity disorder), combined type 314.01 ; Generalized anxiety disorder 300.02 ; Dysthymic disorder 300.4 ; No condition on Harlan II V71.09 ; Rheumatoid arthritis 714.0 ; Incontinence 788.30 ; Irritable bowel syndrome 564.1 ; Osteoporosis 733.00 and Chronic pain 338.29 [facility] [id number] [place] [address] [phone]- [phone] Mar, Agoraphobia with panic disorder 300.21 and Major depressive disorder, recurrent episode, moderate 296.32 [place] [id number] [place] [id number]- [phone] Mar, [facility] [id number] [place] [address] 88968- 8463 February, [facility] [id number] [place] [address] [phone]- 4693 February, Agoraphobia with panic disorder 300.21 and Major depressive disorder, recurrent episode, moderate 296.32 [place] [id number] [place] [address] 24689- 5732 February, [facility] [id number] [place] [address] 61057- 8565 Jan, [place] [id number] [place] [address] 75689- 9115 Jan, [facility] [place] [facility] [address] [id number] [place] [address]- 0517 Dec, [facility] [place] [facility] [address] [id number] [place] [address]- 1814 Dec, [facility] [place] [facility] [address] [facility] [id number] [place] [address]- 1367 Dec, [facility] [place] [facility] [address] [facility] [id number] [place] [address]- 6254 Dec, [facility] [place] [facility] [address] [facility] [id number] [place] [address]- 0391 Dec, [facility] [place] [facility] [address] [facility] [id number] [place] [address]- 1126 Dec, [facility] [place] [facility] [address] [facility] [id number] [place] [address]- 4731 Nov, [facility] [place] [facility] [address] [facility] [id number] [place] [address]- 3136 Nov, [facility] [place] [facility] [address] [facility] [id number] [place] [address]- 9587 Nov, [facility] [place] [facility] [address] [facility] [id number] [place] [address]- 8022 Nov, [facility] [place] [facility] [address] [id number] [place] [address]- 9055 Nov, 2014 [facility] [place] [facility] [address] [facility] [id number] [place] [address]- 5251 Nov, 2014 [facility] [place] [facility] [address] [facility] [id number] [place] [address]- 5613 Nov, 2014 [facility] [place] [facility] [address] [facility] [id number] [place] [address]- 5928 Nov, 2014 [facility] [place] [facility] [address] [id number] [place] [address]- 1703 Oct, [facility] [place] [facility] [address] [id number] [place] [address]- 1460 Oct, [facility] [place] [facility] [address] [id number] [place] [address]- 4086 Oct, [facility] [place] [facility] [address] [id number] [place] [address]- 8276 Oct, [facility] [place] [facility] [address] [id number] [place] [address]- 9196 Oct, [facility] [place] [facility] [address] [id number] [place] [address]- 5616 Oct, [facility] [place] [facility] [address] [id number] [place] [address]- 1882 Sep, [facility] [place] [facility] [address] [id number] [place] [address]- 9706 Sep, [facility] [place] [facility] [address] [id number] [place] [address]- 0237 Sep, [facility] [place] [facility] [address] [id number] [place] 3563 Sep, [facility] [place] [facility] [address] [id number] [place] [address]- 9784 Sep, [facility] [place] [facility] [address] [id number] [place] [address]- 9858 Sep, [facility] [place] [facility] [address] [id number] [place] [address]- 6715 Sep, [facility] [place] [facility] [address] [id number] [place] [address]- 1647 Aug, [facility] [place] [facility] [address] [id number] [place] [address]- 8322 Aug, [facility] [place] [facility] [address] [id number] [place] [address]- 4748 Aug, [facility] [place] [facility] [address] [id number] [place] [address]- 2381 Aug, [facility] [place] [facility] [address] [id number] [place] [address]- 4250 Aug, [facility] [place] [facility] [address] [id number] [place] [address]- 0626 Aug, [facility] [place] [facility] [address] [id number] [place] [address]- 8929 Jul, [facility] [place] [facility] [address] [id number] [place] [address]- 3984 Jul, [facility] [place] [facility] [address] [id number] [place] [address]- 3995 Jul, [facility] [place] [facility] [address] [id number] [place] [address]- 9365 Jul, [facility] [place] [facility] [address] [id number] [place] [address]- 7800 Jul, [facility] [place] [facility] [address] [id number] [place] [address]- 1182 Jul, [facility] [place] [facility] [address] [id number] [place] [address]- 0967 Jun, [facility] [place] [facility] [address] [id number] [place] [address]- 9133 Jun, [facility] [place] [facility] [address] [id number], [place] [address]- 2546 May, [facility] [place] [facility] [address] [id number], [place] [address]- 2122 May, [facility] [place] [facility] [address] [id number] [place] [address]- 0115 Apr, [facility] [place] [facility] [address] [id number] [place] [address]- 2546 Apr, [facility] [place] [facility] [address] [id number] [place] [address]- 2546 Apr, [facility] [place] [facility] [address] [id number] [place] [address]- 7708 Apr, [facility] [place] [facility] [address] [id number] [place] [address]- 7648 Mar, [facility] [place] [facility] [address] [id number] [place] [address]- 6772 Mar, [facility] [place] [facility] [address] [id number] [place] [address]- 2116 Mar, [facility] [place] [facility] [address] [id number] [place] [address]- 0411 Mar, [facility] [place] [facility] [address] [id number] [place] [address]- 7183 February, [facility] [place] [facility] [address] [id number] [place] [address]- 3403 February, [facility] [place] [facility] [address] [id number] [place] [address]- 6926 February, [facility] [place] [facility] [address] [id number] [place] [address]- 6855 February, [facility] [place] [facility] [address] [id number] [place] [address]- 4421 February, [facility] [place] [facility] [address] [facility] [id number] [place] [address]- 8164 February, [facility] [place] [facility] [address] [id number] [place] [address]- 0834 Jan, [facility] [place] [facility] [address] [id number] [place] [address]- 3049 Jan, [facility] [place] [facility] [address] [id number] [place] [address]- 9375 Dec, [facility] [place] [facility] [address] [id number] [place] [address]- 7590 Dec, [facility] [place] [facility] [address] [id number] [place] [address]- 9308 Nov, [facility] [place] [facility] [address] [id number] [place] [address]- 9261 Nov, [facility] [address] [id number] [place] [address]337 Oct, [facility] [place] [facility] [address] [id number] [place] [address]- 4350 Oct, [facility] [place] [facility] [address] [id number] [place] [address]- 9670 Oct, [facility] [address] [id number] [place] [address]- 4375 Oct, [facility] [place] [facility] [address] [id number] [place] [address]62 Sep, [facility] [address] [id number] [place] [address]- 9887 Sep, [facility] [address] [id number] [place] [address]- 5760 Sep, [facility] [place] [facility] [address] [id number] [place] [address]- 9602 Sep, [facility] [place] [facility] [address] [id number] [place] [address]7 Sep, [facility] [place] [facility] [address] [id number] [place] [address]- 0458 Sep, [facility] [place] [facility] [address] [id number], [place] [address]- 2175 Sep, [facility] [place] [facility] [address] [id number] [place] [address]- 9860 Sep, [facility] [place] [facility] [address] [id number] [place] [address]- 8271 Aug, [facility] [place] [facility] [address] [id number] [place] [address]- 5640 Aug, [facility] [place] [facility] [address] [id number], [place] [address]- 3570 Aug, [facility] [place] [facility] [address] [id number] [place] [address]- 8977 Aug, [facility] [place] [facility] [address] [id number] [place] [address]- 1332 Aug, [facility] [place] [facility] [address] [id number] [place] [address]- 9267 Aug, [facility] [place] [facility] [address] [id number] [place] [address]- 2439 Aug, [facility] [place] [facility] [address] [id number] [place] [address]- 4696 Aug, [facility] [place] [facility] [address] [id number] [place] [address]- 7364 Aug, [facility] [place] [facility] [address] [id number] [place] [address]- 8866 Jul, [facility] [place] [facility] [address] [id number] [place] [address]- 8593 Jun, [facility] [place] [facility] [address] [id number] [place] [address]- 6695 May, [facility] [place] [facility] [address] [id number] [place] [address]- 4987 May, [facility] [place] [facility] [address] [id number], [place] [address]- 9893 May, [facility] [place] [facility] [address] [id number], [place] [address]- 6547 Apr, [facility] [place] [facility] [address] [id number] [place] [address]- 9704 Mar, [facility] [place] [facility] [address] [id number] [place] [address]- 4594 February, [facility] [place] [facility] [address] [id number] [place] [address]- 6840 Oct, [facility] [place] [facility] [address] [id number] [place] [address]- 6231 16 Oct, 2012 [facility] [place] [facility] [address] [id number] [place] [address]- 7905 14 Oct, 2012 [facility] [place] [facility] [address] [id number] [place] [address]- 4096 14 Oct, 2012 [facility] [place] [facility] [address] [id number] [place] [address]- 4278 Oct, [facility] [place] [facility] [address] [id number] [place] [address]- 2526 Oct, [facility] [place] [facility] [address] [id number] [place] [address]- 1280 Sep, [facility] [place] [facility] [address] [id number] [place] [address]- 7317 Sep, [facility] [place] [facility] [address] [id number] [place] [address]- 1463 Aug, [facility] [place] [facility] [address] [id number] [place] [address]- 6991 Aug, [facility] [place] [facility] [address] [id number] [place] [address]- 8902 Jul, [facility] [place] [facility] [address] [id number] [place] [address]- 8199 Jul, [facility] [place] [facility] [address] [id number] [place] [address]- 3949 Jul, [facility] [place] [facility] [address] [id number] [place] [address]- 3872 Jul, [facility] [place] [facility] [address] [id number] [place] [address]- 0995 Jul, [facility] [place] [facility] [address] [id number] [place] [address]- 3645 Jul, [facility] [place] [facility] [address] [id number] [place] [address]- 7083 Jul, [facility] [place] [facility] [address] [id number] [place] [address]- 3538 Jul, [facility] [place] [facility] [address] [id number] [place] [address]- 3081 16 Jun, 2012 [facility] [place] [facility] [address] [id number] [place] 4615 Jun, [facility] [place] [facility] [address] [id number] [place] [address]- 1879 May, [facility] [place] [facility] [address] [id number] [place] [address]- 8203 Apr, [facility] [place] [facility] [address] [id number] [place] [address]- 5825 Mar, [facility] [place] [facility] [address] [id number] [place] [address]- 2824 Mar, [facility] [place] [facility] [address] [id number] [place] [address]- 3355 Mar, [facility] [place] [facility] [address] [id number] [place] [address]- 6779 Mar, [facility] [place] [facility] [address] [id number] [place] [address]- 9456 Jan, [facility] [place] [facility] [address] [id number] [place] [address]- 3086 Nov, [facility] [place] [facility] [address] [id number], [place] [address]- 1578 Nov, [facility] [place] [facility] [address] [id number] [place] [address]- 0135 Nov, [facility] [place] [facility] [address] [id number] [place] 9415 Oct, [facility] [place] [facility] [address] [id number] [place] [address]- 5124 Sep, [facility] [place] [facility] [address], [place] [address]- 0616 Sep, [facility] [address], [place] [address]- 5211 Aug, [facility] [address], [place] [address]- 5851 Aug, [facility] [address]65[address], [place] [address]- 0480 Aug, [facility] [address], [place] [address]- 6748 Aug, [facility] [id number] [place] [address] 66030- 0907 Jul, [facility] [address], [place] [address]- 0426 May, [facility] [id number] [place] [address] 88884- 5903 Jan, [facility] [address], [place] [address]- 8638 Nov, [facility] [address], [place] [address]- 9322 Apr, [facility] [address], [place] [address]- 3916 Dec, [facility] [address]65[address], [place] [address]- 6205 Nov, IMMUNIZATIONS No Known Immunizations SOCIAL HISTORY Never Assessed REASON FOR VISIT Controlled Med Refill/PRN PLAN OF CARE VITAL SIGNS MEDICATIONS Medication Instructions Dosage Frequency Start Date End Date Duration Status Xanax 0.5 MG Orally Twice a day 1 tablet 12h Sep, 28 days Active RESULTS No Results PROCEDURES No Known procedures INSTRUCTIONS MEDICATIONS ADMINISTERED No Known Medications MEDICAL (GENERAL) HISTORY Type Description Date Medical History Cardiovascular kzcyjzuk-CSI-Ufuujklx, 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 Mendoza Medical History Stress test 03/07/13-Dr. Kelly Dietrich normal Medical History Hypertension Medical History Asthma Medical History Gastrointestinal Disorder--IBS, GERD, Hx of fatty liver Medical History Hernia 1978 Medical History Cervical dysplasia 02/16-Pap LGSIL/[place]-mild dysplasia Medical History Hyperlipidemia Medical History Rheumatoid [...] Kidney injury 07/10/15-07/11/2015 Hospitalization History Symptomatic Hypokalemia/Nause-Via [facility] 05/13/16 Hospitalization History Stroke 05/03/2017 Hospitalization History stroke 08/24/2017--09/01/2017
--- OUTSIDE RECORDS SUMMARY | 2018-06-12 16:02 | XMS REPORT ---
Author Author LORI SNOWDEN Organization [facility] Address [address] [place] [address] Care Team Providers Care Mesh Worker Name Role Phone LORI SNOWDEN Unavailable PROBLEMS Type Condition ICD9-CM Code YZR29-DE Code Onset Dates Condition Status SNOMED Code Problem ADHD (attention deficit hyperactivity disorder), combined type F90.2 Active 32205724 Problem Other longterm (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 Active 182329845 Problem Generalized anxiety disorder F41.1 Active 97157636 Problem Cerebrovascular accident (CVA), unspecified mechanism I63.9 Active 918476343 Problem Asthma J45.909 Active 319349055 Problem Dysthymic disorder F34.1 Active 94223746 Problem Rheumatoid arthritis involving multiple sites, unspecified rheumatoid factor presence M06.9 Active 933400678 Problem Sleep apnea in adult G47.30 Active 98959056 Problem Seasonal allergies J30.2 Active 532433867 Problem Mild episode of recurrent major depressive disorder F33.0 Active 233778795 Problem Rheumatoid arthritis M06.9 Active 74676932 Problem Chronic pain syndrome G89.4 Active 395274980 Problem Hypertension I10 Active 34327215 Problem Anxiety F41.9 Active 19055626 Problem Gastroesophageal reflux disease with esophagitis K21.0 Active 125901965 Problem Panic attacks F41.0 Active 650959814 Problem Irritable bowel syndrome with diarrhea K58.0 Active 461373884 Problem Mixed hyperlipidemia E78.2 Active 325617472 Problem Hyperinsulinemia E16.1 Active 54005464 Problem Weight gain R63.5 Active 8372678 Problem Arteriosclerotic coronary artery disease I25.10 Active 75064846 Problem Chronic obstructive pulmonary disease, unspecified J44.9 Active [id number] Problem Obstructive sleep apnea G47.33 Active 77658753 Problem Neuropathy G62.9 Active 808081528 Problem Other insomnia G47.09 Active 329663676 ALLERGIES No Information ENCOUNTERS Encounter Location Date Diagnosis [facility] [id number] [place] [address] 82126- 1412 Mar, [facility] [id number] [place] [address] 66777- 0600 Mar, Seasonal allergies J30.2 [facility] [id number] [place] [address] 91105- 7291 February, Generalized anxiety disorder F41.1 [facility] [id number] [place] [address] 15506 -3654 February, Cough R05 and Seasonal allergies J30.2 [facility] [address] 80171- 0464 February, Generalized anxiety disorder F41.1 and Mild episode of recurrent major depressive disorder F33.0 [facility] [id number] [place] [address] 01108- 6275 February, Other longterm (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 ; Anxiety F41.9 ; Panic attacks F41.0 and Irritable bowel syndrome with diarrhea K58.0 [facility] [id number] [place] [address] 71177- 2638 February, [facility] [id number] [place] [address] 29922- 6734 Jan, Mixed hyperlipidemia E78.2 [facility] [id number] [place] [address] 91153- 1157 Jan, [facility] [id number] [place] [address] 20813- 3628 Jan, [facility] [address] 53716- 9174 Jan, [facility] [id number] [place] [address] 88164- 0280 Jan, [facility] [id number] [place] [address] 59127- 8871 Dec, [facility] [id number] [place] [address] 49765- 7844 Dec, [facility] [id number] [place] [address] 06144- 2428 Dec, [facility] [id number] [place] [address] 612535- 9345 Nov, Dysthymic disorder F34.1 [facility] [address] 04719- 6865 Oct, [facility] [id number] [place] [address] 32611- 9869 Oct, [facility] [id number] [place] [address] 31582- 0311 Oct, [facility] [id number] [place] [address] 95320- 2156 Oct, Diarrhea, unspecified type R19.7 and Dysuria R30.0 [facility] [id number] [place] [address] 61882- 8742 Oct, [facility] [id number] [place] [address] 82531- 8318 Sep, [facility] [id number] [place] [address] 36796- 6365 Sep, [facility] [id number] [place] [address] 94699- 7280 Sep, Anxiety F41.9 [facility] [id number] [place] [address] 04965- 7142 Sep, Cerebrovascular accident (CVA), unspecified mechanism I63.9 ; Mixed hyperlipidemia E78.2 ; Gastroesophageal reflux disease with esophagitis K21.0 and Anxiety F41.9 [facility] [id number] [place] [address] 66433- 9068 Sep, [facility] [address] [place] [address]- 7405 Aug, Chronic obstructive pulmonary disease, unspecified J44.9 ; Asthma J45.909 ; Nausea R11.0 ; Dysthymic disorder F34.1 ; Cerebrovascular accident (CVA), unspecified mechanism I63.9 and Rheumatoid arthritis M06.9 [place] [address] 35173- 1355 Aug, Nausea R11.0 ; Encounter for immunization Z23 ; Sleep apnea in adult G47.30 ; Rheumatoid arthritis involving multiple sites, unspecified rheumatoid factor presence M06.9 ; Generalized anxiety disorder F41.1 ; Dysthymic disorder F34.1 and Asthma J45.909 [place] [address] 47886- 9154 Jul, [place] [address] 91955- 5289 May, ADHD (attention deficit hyperactivity disorder), combined type F90.2 ; Generalized anxiety disorder F41.1 and Persistent depressive disorder F34.1 [place] [facility] [address] 56952- 4928 May, Cerebrovascular accident (CVA), unspecified mechanism I63.9 [facility] [id number] [place] [address] 67049- 9583 Apr, Mixed hyperlipidemia E78.2 and Cerebrovascular accident (CVA ), unspecified mechanism I63.9 [facility] [id number] [place] [address] 88000- 8277 Apr, Generalized anxiety disorder F41.1 [place] [address] 46573- 0247 Apr, Bronchitis J40 and Tobacco use Z72.0 [facility] [id number] [place] [address] 98239- 1031 Apr, Mixed hyperlipidemia E78.2 [place] [facility] [address] 98026- 3521 Apr, Other longterm (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 [facility] [id number] [place] [address] 65150- 2689 Apr, [facility] [id number] [place] [address] 75687- 5836 Apr, Generalized anxiety disorder F41.1 [facility] [id number] [place] [address] 83126- 2538 Apr, Obstructive sleep apnea G47.33 and Hyperinsulinemia E16.1 [facility] [id number] [place] [address] 76209- 7737 Apr, ADHD (attention deficit hyperactivity disorder), combined type F90.2 ; Generalized anxiety disorder F41.1 and Persistent depressive disorder F34.1 [facility] [id number] [place] [address] 00588- 4440 Mar, [facility] [id number] [place] [address] 83350- 3354 Mar, Generalized anxiety disorder F41.1 [facility] [id number] [place] [address] 82334- 8463 Mar, Tarsal tunnel syndrome of both lower extremities G57.53 [facility] [id number] [place] [address] 31473- 8900 February, [facility] [id number] [place] [address] 72103- 7592 February, [facility] [id number] [place] [address] 56645- 8312 February, Asthma J45.909 [facility] [id number] [place] [address] 04749- 4898 February, Generalized anxiety disorder F41.1 [facility] [id number] [place] [address] 13891- 5466 February, Hypoxemia R09.02 ; Hyperglycemia R73.9 ; Rheumatoid arthritis M06.9 and Generalized anxiety disorder F41.1 [facility] [id number] [place] [address] 79888- 3354 February, [facility] [address] 77793- 3688 Jan, Chronic obstructive pulmonary disease, unspecified J44.9 [facility] [address] 52315- 3442 Jan, Chronic pain syndrome G89.4 [place] [address] 93351- 9260 Jan, Hypoxemia R09.02 [place] [address] 65815- 2324 Jan, [place] [address] 17714- 3302 Jan, Chronic obstructive pulmonary disease, unspecified J44.9 ; Hypoxemia R09.02 ; Other insomnia G47.09 and Left anterior shoulder pain M25.512 [place] [address] 92936- 5090 Jan, Numbness in feet R20.0 and Neuropathy G62.9 [facility] [id number] [place] [address] 13084- 8908 Jan, [facility] [id number] [place] [address] 05162- 0095 Dec, Acute pain of left shoulder M25.512 [facility] [id number] [place] [address] 99996- 4664 Dec, Acute pain of left shoulder M25.512 [place] [address] 13307- 0577 Dec, Generalized anxiety disorder F41.1 [facility] [id number] [place] [address] 72392- 8892 Dec, Generalized anxiety disorder F41.1 [facility] [address] [address]- 0831 Nov, ADHD (attention deficit hyperactivity disorder), combined type F90.2 ; Generalized anxiety disorder F41.1 and Persistent depressive disorder F34.1 [facility] [address] [place] [address] 70070- 6199 Nov, Acute pain of left shoulder M25.512 [facility] [id number] [place] [address] 91513- 0253 Nov, ADHD (attention deficit hyperactivity disorder), combined type F90.2 ; Generalized anxiety disorder F41.1 and Persistent depressive disorder F34.1 [facility] [id number] [place] [address] 16308- 9343 Nov, Chronic pain syndrome G89.4 [facility] [id number] [place] [address] 52784- 1024 Nov, Chronic pain syndrome G89.4 [facility] [id number] [place] [address] 57945- 1536 Nov, Acute pain of left shoulder M25.512 [facility] [address] [place] [address] 24710- 8510 Nov, Generalized anxiety disorder F41.1 [facility] [address], [place] [address]- 9241 Nov, Acute pain of left shoulder M25.512 [facility] [address] [place] [address] 64350- 4125 Nov, ADHD (attention deficit hyperactivity disorder), combined type F90.2 ; Generalized anxiety disorder F41.1 and Persistent depressive disorder F34.1 [facility] [address] [address]- 8936 Nov, Acute pain of left shoulder M25.512 ; Generalized anxiety disorder F41.1 ; Chronic pain syndrome G89.4 ; Hyperinsulinemia E16.1 ; Pain of left foot M79.672 and Pain in right foot M79.671 [place] [address] [place] [address] 89751- 4994 Oct, ADHD (attention deficit hyperactivity disorder), combined type F90.2 ; Generalized anxiety disorder F41.1 and Dysthymic disorder F34.1 [place] [address] [place] [address] 59926- 6339 Sep, [facility] [id number] [place] [address] 84998- 0401 Sep, [facility] [id number] [place] [address] 40585- 0509 Sep, Routine gynecological examination V72.31 ; Cervical cancer screening Z12.4 ; Breast cancer screening Z12.39 ; Colon cancer screening Z12.11 ; Hypokalemia E87.6 ; Herpes simplex type 1 infection B00.9 and Abscess of right axilla L02.411 [facility] [id number] [place] [address] 09697- 6202 Sep, [facility] [id number] [place] [address] 67368- 3549 Sep, ADHD (attention deficit hyperactivity disorder), combined type F90.2 ; Generalized anxiety disorder F41.1 and Dysthymic disorder F34.1 [facility] [address] [place] [address] 88577- 9016 Aug, [facility] [address] [place] [address] 98081- 1253 Aug, [facility] [id number] [place] [address] 57587- 1110 Aug, Generalized anxiety disorder F41.1 [facility] [address] [place] [address] 84375- 5924 Aug, ADHD (attention deficit hyperactivity disorder), combined type F90.2 ; Generalized anxiety disorder F41.1 and Dysthymic disorder F34.1 [place] [address] [place] [address] 65035- 7034 Jul, Chronic pain syndrome G89.4 ; Hypertension I10 ; Hypokalemia E87.6 ; Asthma J45.909 and Nausea R11.0 [facility] [id number] [place] [address] 39870- 1713 Jul, [place] [address] 40094- 1768 Jul, Asthma J45.909 [facility] [id number] [place] [address] 77351- 9784 Jul, ADHD (attention deficit hyperactivity disorder), combined type F90.2 ; Generalized anxiety disorder F41.1 and Dysthymic disorder F34.1 [facility] [id number] [place] [address] 43594- 7812 Jul, [facility] [id number] [place] [address] 82689- 7526 Jul, Hypertension I10 ; Arteriosclerotic coronary artery disease I25.10 ; Mixed hyperlipidemia E78.2 ; Other longterm (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 and Hyperglycemia R73.9 [facility] [id number] [place] [address] 22656- 3306 16 Jun, 2016 Hypokalemia E87.6 and Hyperglycemia R73.9 [facility] [id number] [place] [address] 77026- 6322 14 Jun, 2016 [facility] [id number] [place] [address] 77119- 3617 13 Jun, 2016 Abnormal kidney function N28.9 [facility] [id number] [place] [address] 27330- 3533 09 Jun, 2016 [facility] [id number] [place] [address] 75351- 0307 06 Jun, 2016 ADHD (attention deficit hyperactivity disorder), combined type F90.2 ; Generalized anxiety disorder F41.1 and Dysthymic disorder F34.1 [place] [address] 37684- 7876 Jun, Generalized anxiety disorder F41.1 and Dysthymic disorder F34.1 [place] [address] 61751- 8984 Jun, Hypokalemia E87.6 [place] [address] 30151- 9524 May, Hypokalemia E87.6 ; Vertigo R42 and Hyperinsulinemia E16.1 [place] [address] 513077- 5688 May, [facility] [facility] [address] 55513- 4717 May, Abnormal kidney function N28.9 ; Hyperinsulinemia E16.1 and Nausea R11.0 [place] [address] 71314- 4328 May, Hypokalemia E87.6 ; Nausea R11.0 ; Epigastric pain R10.13 ; Dehydration E86.0 ; Diaphoresis R61 and Right arm pain M79.601 [place] [address] 37430- 9050 May, [place] [address] 93119- 2640 May, Hypokalemia E87.6 [place] [address] 06889- 3636 May, Hypokalemia E87.6 [place] [address] 75113- 3337 Apr, [place] [address] 10590- 9377 Apr, ADHD (attention deficit hyperactivity disorder), combined type F90.2 ; Generalized anxiety disorder F41.1 and Dysthymic disorder F34.1 [facility] [id number] [place] [address] 29189- 3181 Apr, Right arm pain M79.601 and Hyperinsulinemia E16.1 [facility] [id number] [place] [address] 14594- 6129 Mar, [place] [address] 37937- 2533 Mar, [facility] [id number] [place] [address] 15661- 0778 Mar, Hyperinsulinemia E16.1 ; Hyperlipidemia, unspecified hyperlipidemia type E78.5 ; Central venous catheter in place Z78.9 ; Generalized anxiety disorder F41.1 and Urinary tract infection, site not specified N39.0 [facility] [id number] [place] [address] 34333- 3355 Mar, ADHD (attention deficit hyperactivity disorder), combined type F90.2 ; Generalized anxiety disorder F41.1 and Dysthymic disorder F34.1 [facility] [id number] [place] [address] 76457- 6090 February, ADHD (attention deficit hyperactivity disorder), combined type F90.2 ; Generalized anxiety disorder F41.1 and Dysthymic disorder F34.1 [facility] [id number] [place] [address] 73290- 8370 February, [facility] [id number] [place] [address] 71843- 9751 February, [facility] [id number] [place] [address] 77415- 7204 February, Hypertension I10 and Weight gain R63.5 [facility] [id number] [place] [address] 80369- 7999 February, Major depressive disorder, recurrent, moderate F33.1 and Generalized anxiety disorder F41.1 [place] [address] [place] [address]- 9856 February, ADHD (attention deficit hyperactivity disorder), combined type F90.2 ; Generalized anxiety disorder F41.1 and Dysthymic disorder F34.1 [facility] [id number] [place] [address] 51517- 0214 February, [facility] [id number] [place] [address] 69614- 2721 February, Asthma J45.909 ; Weight gain R63.5 ; Hypertension I10 ; Rheumatoid arthritis M06.9 and Chronic pain syndrome G89.4 [facility] [id number] [place] [address] 66195- 3473 Jan, ADHD (attention deficit hyperactivity disorder), combined type F90.2 ; Generalized anxiety disorder F41.1 and Dysthymic disorder F34.1 [facility] [id number] [place] [address] 92692- 3161 Dec, ADHD (attention deficit hyperactivity disorder), combined type F90.2 ; Generalized anxiety disorder F41.1 and Dysthymic disorder F34.1 [facility] [id number] [place] [address] 11857- 2726 Dec, [facility] [id number] [place] [address] 72291- 0072 Nov, [facility] [id number] [place] [address] 05838- 0312 Nov, [facility] [id number] [place] [address] 33378- 6448 Nov, [facility] [id number] [place] [address] 65352- 4851 Nov, [facility] [id number] [place] [address] 41942- 9301 Oct, [facility] [id number] [place] [address] 08869- 8253 Oct, [facility] [address], [place] [address]- 7523 Oct, [facility] [address], [place] [address]- 9538 Sep, [facility] [address], [place] [address]- 0741 Sep, [facility] [id number] [place] [address] 78751- 7487 Sep, Agoraphobia with panic disorder F40.01 ; Attention-deficit hyperactivity disorder, combined type F90.2 and Dysthymic disorder F34.1 [facility] [id number] [address]- 5535 Aug, [facility] [address], [place] [address]- 8000 Aug, [facility] [address] [place] [address]- 8473 Aug, [facility] [address], [place] [address]- 6645 Aug, Dysthymic disorder F34.1 ; Generalized anxiety disorder F41.1 and ADHD (attention deficit hyperactivity disorder), combined type F90.2 [facility] [address], [place] [address]- 0256 Aug, ADHD (attention deficit hyperactivity disorder), combined type F90.2 ; Generalized anxiety disorder F41.1 and Dysthymic disorder F34.1 [facility] [id number] [address]- 9019 Jul, Urinary tract infection, site not specified N39.0 ; Hypotension, unspecified I95.9 and Breast cancer screening Z12.39 [facility] [address], [place] [address]- 9826 Jul, [facility] [address], [place] [address]- 1315 Jul, [facility] [address], [place] [address]- 4389 Jul, Urinary tract infection, site not specified N39.0 ; Nausea R11.0 ; Gastroenteritis K52.9 ; Renal failure N19 and Other hypotension I95.89 [facility] [address] [place] [address] 84464- 7883 Jul, [facility] [id number] [place] [address] 416353- 9034 Jul, [facility] [id number] [place] [address] 41048- 6059 Jul, [facility] [id number] [place] [address] 98384- 1937 Jun, [facility] [id number] [place] [address] 65266- 7566 Jun, Major depression in partial remission 296.25 ; Generalized anxiety disorder 300.02 and ADHD, predominantly inattentive type 314.01 [id number] [place] [address] 70136- 7234 May, [address] [id number] [place] [address] 88181- 9148 Apr, Major depressive disorder, recurrent episode, severe, without mention of psychotic behavior 296.33 ; Agoraphobia with panic disorder 300.21 and Generalized anxiety disorder 300.02 [id number] [place] [address] 64307- 4636 Apr, ADHD (attention deficit hyperactivity disorder), combined type 314.01 ; Generalized anxiety disorder 300.02 and Dysthymic disorder 300.4 [id number] [place] [address] 30098- 0863 Apr, CAD (coronary artery disease) 414.00 ; HTN (hypertension) 401.9 and Tobacco use 305.1 [id number] [place] [address] 97979- 0953 Apr, [facility] [id number] [place] [address] 89830- 1612 Mar, ADHD (attention deficit hyperactivity disorder), combined type 314.01 ; Generalized anxiety disorder 300.02 ; Dysthymic disorder 300.4 ; No condition on [place] V71.09 ; Rheumatoid arthritis 714.0 ; Incontinence 788.30 ; Irritable bowel syndrome 564.1 ; Osteoporosis 733.00 and Chronic pain 338.29 [facility] [id number] [place] [address] 71985- 9487 Mar, Agoraphobia with panic disorder 300.21 and Major depressive disorder, recurrent episode, moderate 296.32 [facility] [address] [place] [id number] [place] [address] 773538- 8484 Mar, [facility] [id number] [place] [address] [id number]- 2742 February, [facility] [id number] [place] [address] [id number]- 5685 February, Agoraphobia with panic disorder 300.21 and Major depressive disorder, recurrent episode, moderate 296.32 [facility] [id number] [place] [address] [id number] February, [facility] [id number] [place] [address] 53734- 2220 Jan, [facility] [id number] [place] [address] 05711- 5191 Jan, [facility] [id number] [place] [address] 17924- 7399 Dec, [facility] [address] [id number]- 6468 Dec, [facility] [id number] [place] [address] [id number]- 0763 Dec, [facility] [id number] [place] [address] [id number]- 7466 Dec, [facility] [place] [facility] [address] [id number] [place] [address]- [address]41 Dec, [facility] [place] [facility] [address] [id number] [place] [address]- 6682 Dec, [facility] [place] [facility] [address] [id number] [place] [address]- 4751 Nov, [facility] [place] [facility] [address] [id number] [place] [address]- 6939 Nov, [facility] [place] [facility] [address] [id number] [place] [address]- 2481 Nov, [facility] [place] [facility] [address] [id number] [place] [address]- 2307 Nov, [facility] [place] [facility] [address] [id number] [place] [address] Nov, [facility] [place] [facility] [address] [id number] [place] [address]- 3871 Nov, [facility] [place] [facility] [address] [id number] [place] [address] Nov, [facility] [place] [facility] [address] [id number] [place] [address] Nov, [facility] [place] [facility] [address] [id number] [place] [address] Oct, [facility] [place] [facility] [address] [id number] [place] [address] Oct, [facility] [place] [facility] [address] [id number] [place] [address] Oct, [facility] [place] [facility] [address] [id number] [place] [address]4 Oct, [facility] [place] [facility] [address] [id number] [place] [address] 65[address] Oct, [facility] [place] [facility] [address] [id number] [place] [address] 05 Oct, 2014 [facility] [place] [facility] [address] [id number] [place] [address] Sep, [facility] [place] [facility] [address] [id number] [place] [address] Sep, [facility] [place] [facility] [address] [id number] [place] [address] Sep, [facility] [place] [facility] [address] [id number] [place] [address] 1468 Sep, [facility] [place] [facility] [address] [id number] [place] [address] 6039 Sep, [facility] [place] [facility] [address] [id number] [place] [address]- 56[address] Sep, [facility] [place] [facility] [address] [id number] [place] [address] Sep, [facility] [place] [facility] [address] [id number] [place] [address] 50[address] Aug, [facility] [place] [facility] [address] [id number] [place] [address]- [address] 24 Aug, 2014 [facility] [place] [facility] [address] [facility] [id number] [place] [address]- 9474 Aug, [facility] [place] [facility] [address] [id number] [place] [address]- 1055 Aug, [facility] [place] [facility] [address] [id number] [place] [address]- [address]278 Aug, [facility] [place] [facility] [address] [id number] [place] [address]- 7195 Aug, [facility] [place] [facility] [address] [id number] [place] [address]- 235[address] Jul, [facility] [place] [facility] [address] [id number] [place] [address]- 7180 Jul, [facility] [place] [facility] [address] [id number] [place] [address]- 8980 Jul, [facility] [place] [facility] [address] [id number] [place] [address]- 2991 Jul, [facility] [place] [facility] [address] [id number] [place] [address]- [address]100 Jul, [facility] [place] [facility] [address] [id number] [place] [address]- 4119 Jul, [facility] [place] [facility] [address] [id number] [place] [address]- 2811 Jun, [facility] [place] [facility] [address] [id number] [place] [address]- 5401 Jun, [facility] [place] [facility] [address] [id number] [place] [address]- 0452 May, [facility] [place] [facility] [address] [id number] [place] [address]- 2484 May, [facility] [place] [facility] [address] [id number] [place] [address] Apr, [facility] [place] [facility] [address] [id number] [place] [address]- 2864 Apr, [facility] [place] [facility] [address] [id number], [place] [address] Apr, [facility] [place] [facility] [address] [id number], [place] [address] Apr, [facility] [place] [facility] [address] [id number] [place] [address]- 9278 Mar, [facility] [place] [facility] [address] [id number] [place] [address]- 6948 Mar, [facility] [place] [facility] [address] [id number], [place] [address] Mar, [facility] [place] [facility] [address] [id number], [place] [address] Mar, [facility] [place] [facility] [address] [id number] [place] [address] 4984 February, [facility] [place] [facility] [address] [id number] [place] [address]- 2480 February, [facility] [place] [facility] [address] [facility] [id number] [place] [address] 8559 February, [facility] [place] [facility] [address] [id number] [place] [address] 3048 February, [facility] [place] [facility] [address] [id number] [place] [address]- 2238 February, [facility] [place] [facility] [address] [id number] [place] [address]- 0657 February, [facility] [place] [facility] [address] [facility] [id number] [place] [address]- 9774 Jan, [facility] [place] [facility] [address] [id number] [place] [address]- 2678 Jan, [facility] [place] [facility] [address] [id number] [place] [address]- 3070 Dec, [facility] [place] [facility] [address] [id number] [place] [address]- 4688 Dec, [facility] [place] [facility] [address] [id number] [place] [address]- 5596 Nov, [facility] [place] [facility] [address] [id number] [place] [address]- 2624 Nov, [facility] [place] [facility] [address] [id number] [place] [address]- 2965 Oct, [facility] [place] [facility] [address] [id number] [place] [address]- 8083 Oct, [facility] [place] [facility] [address] [facility] [id number][place] [address]33 Oct, [facility] [place] [facility] [address] [id number] [place] [address]- 4952 Oct, [facility] [address] [id number] [place] [address]- 2655 Sep, [facility] [place] [facility] [address] [id number] [place] [address]- 1063 Sep, [facility] [place] [facility] [address] [id number] [place] [address]- 1471 Sep, [facility] [place] [facility] [address] [id number] [place] [address]- 3619 Sep, [facility] [place] [facility] [address] [id number] [place] [address]- 8125 Sep, [facility] [address] [id number] [place] [address]- 2296 Sep, [facility] [place] [facility] [address] [id number] [place] [address]- 8653 Sep, [facility] [place] [facility] [address] [id number] [place] [address]- 2699 Sep, [facility] [place] [facility] [address] [id number] [place] [address]- 8296 Aug, [facility] [place] [facility] [address] [id number] [place] [address]- 7976 Aug, [facility] [place] [facility] [address] [id number] [place] [address]- 4942 Aug, [facility] [place] [facility] [address] [id number] [place] [address]- 3548 Aug, [facility] [place] [facility] [address] [id number] [place] [address]- 1276 Aug, [facility] [place] [facility] [address] [id number] [place] [address]- 0030 05 Aug, 2013 [facility] [place] [facility] [address] [id number] [place] [address]- 1798 Aug, [facility] [place] [facility] [address] [id number] [place] [address] 2543 Aug, [facility] [place] [facility] [address] [id number] [place] [address]- 2546 Aug, [facility] [place] [facility] [address] [id number] [place] [address] 2546 Jul, [facility] [place] [facility] [address] [id number] [place] [address] 2546 Jun, [facility] [place] [facility] [address] [id number] [place] [address]- 0246 May, [facility] [place] [facility] [address] [id number] [place] [address]- 6286 May, [facility] [place] [facility] [address] [id number] [place] [address]- 2221 May, [facility] [place] [facility] [address] [id number] [place] [address]- 4536 Apr, [facility] [place] [facility] [address] [id number] [place] [address]- 0562 Mar, [facility] [place] [facility] [address] [id number] [place] [address]- 7798 February, [facility] [place] [facility] [address] [id number], [place] [address]- [address]01 Oct, [facility] [place] [facility] [address] [id number], [place] [address] 2547 Oct, [facility] [place] [facility] [address] [id number] [place] [address]- 3505 Oct, [facility] [place] [facility] [address] [id number] [place] [address]- 4395 Oct, [facility] [place] [facility] [address] [id number] [place] [address]- 2546 Oct, [facility] [place] [facility] [address] [id number] [place] [address]- 3760 Oct, [facility] [address] [id number] [place] [address] Sep, [facility] [place] [facility] [address] [id number] [place] [address]- 6936 Sep, [facility] [place] [facility] [address] [id number] [place] [address]- 6263 Aug, [facility] [place] [facility] [address] [id number] [place] [address]- 9866 Aug, [facility] [place] [facility] [address] [id number] [place] [address] Jul, [facility] [place] [facility] [address] [id number] [place] [address]- 1098 Jul, [facility] [place] [facility] [address] [id number] [place] [address]- 0605 Jul, [facility] [place] [facility] [address] [id number] [place] [address]- 8030 Jul, [facility] [place] [facility] [address] [id number] [place] [address]- 4665 Jul, [facility] [place] [facility] [address] [id number] [place] [address]- 5065 Jul, [facility] [place] [facility] [address] [id number] [place] [address]- 3190 Jul, [facility] [place] [facility] [address] [id number] [place] [address]- 2899 Jul, [facility] [place] [facility] [address] [id number] [place] [address]- 0099 16 Jun, 2012 [facility] [place] [facility] [address] [id number] [place] [address]- 1304 Jun, [facility] [place] [facility] [address] [id number] [place] [address]- 2294 May, [facility] [place] [facility] [address] [id number] [place] [address]- 1802 Apr, [facility] [place] [facility] [address] [id number] [place] [address]- 3100 Mar, [facility] [place] [facility] [address] [id number] [place] [address]- 3575 Mar, [facility] [place] [facility] [address] [id number] [place] [address]- 8086 Mar, [facility] [place] [facility] [address] [id number] [place] [address]- 4523 Mar, [facility] [place] [facility] [address] [id number] [place] [address]- 7410 Jan, [facility] [place] [facility] [address] [id number] [place] [address]- 2937 Nov, [facility] [place] [facility] [address] [id number] [place] [address]- 1284 Nov, [facility] [place] [facility] [address] [id number] [place] [address]- 7772 Nov, [facility] [place] [facility] [address] [id number] [place] [address]- 2397 Oct, [facility] [place] [facility] [address] [id number] [place] [address]- 2537 Sep, [facility] [place] [facility] [address] [id number] [place] [address]- 8076 Sep, [facility] [place] [facility] [address] [id number] [place] [address]- 7068 Aug, [facility] [place] [facility] [address] [id number] [place] [address]- 4411 Aug, [facility] [place] [facility] [address] [id number] [place] 2989 Aug, [facility] [place] [facility] [address] [id number], [place] [address]- 0696 Aug, [facility] [id number], [place] [address]- 5876 Jul, [facility] [id number], [place] [address]- 8096 May, [facility] [id number] [place] [address]- 8716 Jan, [facility] [id number] [place] [address] 61564- 3336 Nov, [facility] [id number] [place] [address] 987[address]- 1776 Apr, [facility] [id number] [place] [address] 54498- 7076 Dec, [facility] [id number] [place] [address] 38885- 2096 Nov, IMMUNIZATIONS No Known Immunizations SOCIAL HISTORY Never Assessed REASON FOR VISIT Controlled Med Refill 10/13/17 PLAN OF CARE VITAL SIGNS MEDICATIONS Medication Instructions Dosage Frequency Start Date End Date Duration Status Xanax 0.5 MG Orally Twice a day 1 tablet 12h Sep, 28 days Active RESULTS No Results PROCEDURES No Known procedures INSTRUCTIONS MEDICATIONS ADMINISTERED No Known Medications MEDICAL (GENERAL) HISTORY Type Description Date Medical History Cardiovascular sgdpumlw-[id number]-Scuxzmgr, 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 Mendoza Medical History Stress test 03/07/13-Dr. Kelly Dietrich normal Medical History Hypertension Medical History Asthma Medical History Gastrointestinal Disorder--IBS, GERD, Hx of fatty liver Medical History Hernia 1979 Medical History Cervical dysplasia 02/16-Pap LGSIL/Morrill-mild dysplasia Medical History Hyperlipidemia Medical History Rheumatoid [...] Kidney injury 07/10/15-07/11/2015 Hospitalization History Symptomatic Hypokalemia/Nause-Via [facility] [place] 05/13/16 Hospitalization History Stroke 05/03/2017 Hospitalization History stroke 08/24/2017--09/01/2017
--- OUTSIDE RECORDS SUMMARY | 2018-06-12 16:03 | XMS REPORT ---
Author Author LORI SNOWDEN [facility] Address [address] [place] [address] Care Team Providers Care Cloth Bleaching Supervisor Name Role Phone LORI SNOWDEN Unavailable PROBLEMS Type Condition ICD9-CM Code ACT42-BS Code Onset Dates Condition Status SNOMED Code Problem ADHD (attention deficit hyperactivity disorder), combined type F90.2 Active 57500181 Problem Other snf (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 Active 868591389 Problem Generalized anxiety disorder F41.1 Active 39209077 Problem Cerebrovascular accident (CVA), unspecified mechanism I63.9 Active 371136045 Problem Asthma J45.909 Active 247061497 Problem Dysthymic disorder F34.1 Active 64829393 Problem Rheumatoid arthritis involving multiple sites, unspecified rheumatoid factor presence M06.9 Active 402334956 Problem Sleep apnea in adult G47.30 Active 03197875 Problem Seasonal allergies J30.2 Active 756078553 Problem Mild episode of recurrent major depressive disorder F33.0 Active 632591226 Problem Rheumatoid arthritis M06.9 Active 59742628 Problem Chronic pain syndrome G89.4 Active 158641992 Problem Hypertension I10 Active 42633028 Problem Anxiety F41.9 Active 25324224 Problem Gastroesophageal reflux disease with esophagitis K21.0 Active 028960033 Problem Panic attacks F41.0 Active 687054480 Problem Irritable bowel syndrome with diarrhea K58.0 Active 014043313 Problem Mixed hyperlipidemia E78.2 Active 200653287 Problem Hyperinsulinemia E16.1 Active 74955117 Problem Weight gain R63.5 Active 2486768 Problem Arteriosclerotic coronary artery disease I25.10 Active 17858339 Problem Chronic obstructive pulmonary disease, unspecified J44.9 Active [id number] Problem Obstructive sleep apnea G47.33 Active 76769266 Problem Neuropathy G62.9 Active 676370230 Problem Other insomnia G47.09 Active 151415498 ALLERGIES Substance Reaction Event Type Date Status Breo Ellipta Nausea, dizziness Drug Allergy Sep, Active Solu-Medrol rash, swelling Drug Allergy Sep, Active Paxil Unknown Drug Allergy Sep, Active Hydrocodone-Acetaminophen hives Drug Allergy Sep, Active Doxycycline Hyclate local swellling Drug Allergy Sep, Active Codeine Sulfate hives Drug Allergy Sep, Active Oxybutynin 5 Ea Tablet mouth sores Non Drug Allergy Sep, Active Iodinated Contrast Media - Iv Dye unknown Non Drug Allergy Sep, Active ENCOUNTERS Encounter Location Date Diagnosis [facility] [id number] [place] [address] 39140- 5191 Mar, [place] [address] 13973- 4482 February, Generalized anxiety disorder F41.[address] 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 ; Anxiety F41.9 ; Panic attacks F41.0 and Irritable bowel syndrome with diarrhea K58.0 [place] [id number] [place] [address] 14535- 0037 February, [place] [id number] [place] [address] 73791- 9862 Jan, Mixed hyperlipidemia E78.2 [place] [address] 51869- 8729 Jan, [place] [id number] [place] [address] 33467- 6049 Jan, [place] [address] [place] [address] 0794 Jan, [facility] [id number] [place] [address] 25090- 2658 Jan, [facility] [id number] [place] [address] 53328- 5490 Dec, [facility] [id number] [place] [address] 76445- 4881 Dec, [facility] [id number] [place] [address] 87821- 0855 Dec, [facility] [id number] [place] [address] 58190- 2668 Nov, Dysthymic disorder F34.1 [facility] [id number] [place] [address] 03555- 6375 Oct, [facility] [id number] [place] [address] 93819- 6267 Oct, [facility] [id number] [place] [address] 35154- 2449 Oct, [facility] [id number] [place] [address] 68218- 0566 Oct, Diarrhea, unspecified type R19.7 and Dysuria R30.0 [facility] [id number] [place] [address] 77514- 3501 Oct, [facility] [id number] [place] [address] 72184- 4524 Sep, [facility] [id number] [place] [address] 037219- 5093 Sep, [facility] [id number] [place] [address] 785023- 5928 Sep, Anxiety F41.9 [facility] [address] [address] 5656 Sep, Cerebrovascular accident (CVA), unspecified mechanism I63.9 ; Mixed hyperlipidemia E78.2 ; Gastroesophageal reflux disease with esophagitis K21.0 and Anxiety F41.9 [place] [id number] [place] [address] 06758- 0537 Sep, [place] [id number] [place] [address] 35410- 1552 Aug, Chronic obstructive pulmonary disease, unspecified J44.9 ; Asthma J45.909 ; Nausea R11.0 ; Dysthymic disorder F34.1 ; Cerebrovascular accident (CVA), unspecified mechanism I63.9 and Rheumatoid arthritis M06.9 [place] [address] 61532- 0492 Aug, Nausea R11.0 ; Encounter for immunization Z23 ; Sleep apnea in adult G47.30 ; Rheumatoid arthritis involving multiple sites, unspecified rheumatoid factor presence M06.9 ; Generalized anxiety disorder F41.1 ; Dysthymic disorder F34.1 and Asthma J45.909 [place] [id number] [place] [address] 53444- 4537 Jul, [place] [address] 23403- 4156 May, ADHD (attention deficit hyperactivity disorder), combined type F90.2 ; Generalized anxiety disorder F41.1 and Persistent depressive disorder F34.1 [place] [id number] [place] [address] 71453- 1453 May, Cerebrovascular accident (CVA), unspecified mechanism I63.9 [place] [id number] [place] [address] 21540- 7475 Apr, Mixed hyperlipidemia E78.2 and Cerebrovascular accident (CVA ), unspecified mechanism I63.9 [place] [id number] [place] [address] 13993- 5173 Apr, Generalized anxiety disorder F41.1 [place] [address] 09261- 9454 Apr, Bronchitis J40 and Tobacco use Z72.0 [place] [address] 99569- 9205 Apr, Mixed hyperlipidemia E78.2 [place] [address] 19342- 8990 Apr, Other snf (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 [place] [address] 21562- 4797 Apr, [place] [address] 14346- 6911 Apr, Generalized anxiety disorder F41.1 [place] [address] 74259- 3979 Apr, Obstructive sleep apnea G47.33 and Hyperinsulinemia E16.[address] 87110- 2851 Apr, ADHD (attention deficit hyperactivity disorder), combined type F90.2 ; Generalized anxiety disorder F41.1 and Persistent depressive disorder F34.1 [place] [address] 43146- 3585 Mar, [place] [address] 07755- 6677 Mar, Generalized anxiety disorder F41.1 [place] [address] 63562- 3058 Mar, Tarsal tunnel syndrome of both lower extremities G57.53 [place] [address] 08878- 1081 February, [place] [address] 20184- 2277 February, [place] [address] 61459- 6368 February, Asthma J45.909 [place] [id number] [place] [address] 59369- 1550 February, Generalized anxiety disorder F41.1 [place] [address] 34782- 6581 February, Hypoxemia R09.02 ; Hyperglycemia R73.9 ; Rheumatoid arthritis M06.9 and Generalized anxiety disorder F41.1 [place] [address] 09444- 2262 February, [place] [address] 90295- 9420 Jan, Chronic obstructive pulmonary disease, unspecified J44.9 [place] [address] 93993- 7456 Jan, Chronic pain syndrome G89.4 [place] [address] 64351- 2571 Jan, Hypoxemia R09.02 [place] [address] 31119- 2316 Jan, [place] [address] 27774- 9256 Jan, Chronic obstructive pulmonary disease, unspecified J44.9 ; Hypoxemia R09.02 ; Other insomnia G47.09 and Left anterior shoulder pain M25.512 [place] [id number] [place] [address] 08213- 8544 Jan, Numbness in feet R20.0 and Neuropathy G62.9 [place] [id number] [place] [address] 77415- 4601 Jan, [place] [id number] [place] [address] 07042- 0741 Dec, Acute pain of left shoulder M25.512 [place] [id number] [place] [address] 77111- 3876 Dec, Acute pain of left shoulder M25.512 [facility] [address] [address]- 8960 Dec, Generalized anxiety disorder F41.1 [facility] [id number] [place] [address] 87035 2546 Dec, Generalized anxiety disorder F41.1 [facility] [id number] [place] [address] 67976 2546 Nov, ADHD (attention deficit hyperactivity disorder), combined type F90.2 ; Generalized anxiety disorder F41.1 and Persistent depressive disorder F34.1 [facility] [id number] [place] [address] 39501- 7576 Nov, Acute pain of left shoulder M25.512 [facility] [id number] [place] [address] 94476 2546 Nov, ADHD (attention deficit hyperactivity disorder), combined type F90.2 ; Generalized anxiety disorder F41.1 and Persistent depressive disorder F34.1 [facility] [id number] [place] [address] 71577- 8076 Nov, Chronic pain syndrome G89.4 [facility] [id number] [place] [address] 37294 2546 13 Nov, 2016 Chronic pain syndrome G89.4 [facility] [id number] [place] [address] 20303 2546 08 Nov, 2016 Acute pain of left shoulder M25.512 [facility] [address] [address] 2546 07 Nov, 2016 Generalized anxiety disorder F41.1 [facility] [id number] [place] [address] 08482 2546 06 Nov, 2016 Acute pain of left shoulder M25.512 [facility] [address] [address] 2546 Nov, ADHD (attention deficit hyperactivity disorder), combined type F90.2 ; Generalized anxiety disorder F41.1 and Persistent depressive disorder F34.1 [place] [id number] [place] [address] 41343- 3999 Nov, Acute pain of left shoulder M25.512 ; Generalized anxiety disorder F41.1 ; Chronic pain syndrome G89.4 ; Hyperinsulinemia E16.1 ; Pain of left foot M79.672 and Pain in right foot M79.671 [place] [address] 76394- 5997 Oct, ADHD (attention deficit hyperactivity disorder), combined type F90.2 ; Generalized anxiety disorder F41.1 and Dysthymic disorder F34.1 [place] [address] 74428- 5190 Sep, [place] [address] 53363- 8286 Sep, [address] 81785- 2383 Sep, Routine gynecological examination V72.31 ; Cervical cancer screening Z12.4 ; Breast cancer screening Z12.39 ; Colon cancer screening Z12.11 ; Hypokalemia E87.6 ; Herpes simplex type 1 infection B00.9 and Abscess of right axilla L02.411 [place] [id number] [place] [address] 53980- 0484 Sep, [place] [id number] [place] [address] 99971- 1870 Sep, ADHD (attention deficit hyperactivity disorder), combined type F90.2 ; Generalized anxiety disorder F41.1 and Dysthymic disorder F34.1 [place] [address] 50652- 0319 Aug, [place] [id number] [place] [address] 24195- 0833 Aug, [place] [address] 74662- 7036 Aug, Generalized anxiety disorder F41.1 [facility] [id number] [place] [address] 46138- 8002 Aug, ADHD (attention deficit hyperactivity disorder), combined type F90.2 ; Generalized anxiety disorder F41.1 and Dysthymic disorder F34.1 [place] [id number] [place] [address] 49354- 7665 Jul, Chronic pain syndrome G89.4 ; Hypertension I10 ; Hypokalemia E87.6 ; Asthma J45.909 and Nausea R11.0 [place] [address] 68925- 2733 Jul, [place] [address] 56750- 3310 Jul, Asthma J45.909 [place] [address] 70168- 2426 Jul, ADHD (attention deficit hyperactivity disorder), combined type F90.2 ; Generalized anxiety disorder F41.1 and Dysthymic disorder F34.1 [place] [address] 13293- 4417 Jul, [place] [id number] [place] [address] 27494- 5165 Jul, Hypertension I10 ; Arteriosclerotic coronary artery disease I25.10 ; Mixed hyperlipidemia E78.2 ; Other snf (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 and Hyperglycemia R73.9 [place] [id number] [place] [address] 21576- 6239 16 Jun, 2016 Hypokalemia E87.6 and Hyperglycemia R73.9 [place] [id number] [place] [address] 76775- 6575 14 Jun, 2016 [facility] [id number] [place] [address] 89089- 9024 13 Jun, 2016 Abnormal kidney function N28.9 [place] [address] 00288- 6133 Jun, [place] [address] 46985- 2961 Jun, ADHD (attention deficit hyperactivity disorder), combined type F90.2 ; Generalized anxiety disorder F41.1 and Dysthymic disorder F34.1 [place] [address] 67680- 5310 Jun, Generalized anxiety disorder F41.1 and Dysthymic disorder F34.1 [place] [address] 08961- 0059 Jun, Hypokalemia E87.6 [place] [address] 84770- 2201 May, Hypokalemia E87.6 ; Vertigo R42 and Hyperinsulinemia E16.1 [place] [address] 90626- 7998 May, [place] [address] 59490- 2505 May, Abnormal kidney function N28.9 ; Hyperinsulinemia E16.1 and Nausea R11.0 [place] [address] 06475- 3226 May, Hypokalemia E87.6 ; Nausea R11.0 ; Epigastric pain R10.13 ; Dehydration E86.0 ; Diaphoresis R61 and Right arm pain M79.601 [place] [address] 28817- 1768 May, [place] [address] 73981- 7268 May, Hypokalemia E87.6 [place] [address] 78841- 4139 May, Hypokalemia E87.6 [place] [id number] [place] [address] 06982- 4648 Apr, [place] [address] 59130- 1730 Apr, ADHD (attention deficit hyperactivity disorder), combined type F90.2 ; Generalized anxiety disorder F41.1 and Dysthymic disorder F34.1 [place] [address] 69567- 8584 Apr, Right arm pain M79.601 and Hyperinsulinemia E16.1 [place] [address] 09812- 0287 Mar, [place] [address] 74654- 0494 Mar, [place] [address] 86867- 4840 Mar, Hyperinsulinemia E16.1 ; Hyperlipidemia, unspecified hyperlipidemia type E78.5 ; Central venous catheter in place Z78.9 ; Generalized anxiety disorder F41.1 and Urinary tract infection, site not specified N39.0 [place] [id number] [place] [address] 38619- 8789 Mar, ADHD (attention deficit hyperactivity disorder), combined type F90.2 ; Generalized anxiety disorder F41.1 and Dysthymic disorder F34.1 [place] [id number] [place] [address] 70545- 0221 February, ADHD (attention deficit hyperactivity disorder), combined type F90.2 ; Generalized anxiety disorder F41.1 and Dysthymic disorder F34.1 [place] [id number] [place] [address] 24161- 2098 February, [place] [id number] [place] [address] 42367- 4683 February, [place] [id number] [place] [address] 41769- 2057 February, Hypertension I10 and Weight gain R63.5 [facility] [id number] [place] [address] 67194- 3542 February, Major depressive disorder, recurrent, moderate F33.1 and Generalized anxiety disorder F41.1 [place] [id number] [place] [address] 43504- 0642 February, ADHD (attention deficit hyperactivity disorder), combined type F90.2 ; Generalized anxiety disorder F41.1 and Dysthymic disorder F34.1 [place] [id number] [place] [address] 48194- 6383 February, [place] [id number] [place] [address] 12889- 8664 February, Asthma J45.909 ; Weight gain R63.5 ; Hypertension I10 ; Rheumatoid arthritis M06.9 and Chronic pain syndrome G89.4 [place] [id number] [place] [address] 50498- 9416 Jan, ADHD (attention deficit hyperactivity disorder), combined type F90.2 ; Generalized anxiety disorder F41.1 and Dysthymic disorder F34.1 [place] [id number] [place] [address] 76112- 2224 Dec, ADHD (attention deficit hyperactivity disorder), combined type F90.2 ; Generalized anxiety disorder F41.1 and Dysthymic disorder F34.1 [place] [id number] [place] [address] 71507- 9091 Dec, [place] [id number] [place] [address] 68651- 1799 Nov, [place] [id number] [place] [address] 31200- 4497 Nov, [place] [id number] [place] [address] 61492- 5199 Nov, [place] [id number] [place] [address] 45270- 0614 Nov, [facility] [address], [place] [address]- 4244 Oct, [facility] [address], [place] [address]- 7135 Oct, [facility] [address], [place] [address]- 8448 Oct, [facility] [id number] [place] [address] 92716- 9361 Sep, [facility] [id number] [place] [address] 55769- 7569 Sep, [facility] [address], [place] [address]- 7130 Sep, Agoraphobia with panic disorder F40.01 ; Attention-deficit hyperactivity disorder, combined type F90.2 and Dysthymic disorder F34.1 [facility] [address], [place] [address]- 9813 Aug, [facility] [address], [place] [address]- 5859 Aug, [facility] [address], [place] [address]- 3761 Aug, [facility] [address], [place] [address]- 5483 Aug, Dysthymic disorder F34.1 ; Generalized anxiety disorder F41.1 and ADHD (attention deficit hyperactivity disorder), combined type F90.2 [facility] [address], [place] [address]- 0860 Aug, ADHD (attention deficit hyperactivity disorder), combined type F90.2 ; Generalized anxiety disorder F41.1 and Dysthymic disorder F34.1 [facility] [address], [place] [address]- 6735 Jul, Urinary tract infection, site not specified N39.0 ; Hypotension, unspecified I95.9 and Breast cancer screening Z12.39 [facility] [id number] [place] [address] 45193- 2311 Jul, [facility] [id number] [place] [address] 91852- 7072 Jul, [facility] [id number] [place] [address] 98149- 2646 Jul, Urinary tract infection, site not specified N39.0 ; Nausea R11.0 ; Gastroenteritis K52.9 ; Renal failure N19 and Other hypotension I95.89 [facility] [id number] [place] [address] 56003- 0086 Jul, [facility] [id number] [place] [address] 41339- 5787 Jul, [facility] [id number] [place] [address] 31161- 3093 Jul, [facility] [id number] [place] [address] 15779- 8422 Jun, [facility] [id number] [place] [address] 68016- 5158 Jun, Major depression in partial remission 296.25 ; Generalized anxiety disorder 300.02 and ADHD, predominantly inattentive type 314.01 [place] [id number] [place] [address] 26265- 1957 May, [facility] [id number] [place] [address] 78658- 1960 Apr, Major depressive disorder, recurrent episode, severe, without mention of psychotic behavior 296.33 ; Agoraphobia with panic disorder 300.21 and Generalized anxiety disorder 300.02 [facility] [id number] [place] [address] 78706- 3402 Apr, ADHD (attention deficit hyperactivity disorder), combined type 314.01 ; Generalized anxiety disorder 300.02 and Dysthymic disorder 300.4 [place] [id number] [address]- 2614 Apr, CAD (coronary artery disease) 414.00 ; HTN (hypertension) 401.9 and Tobacco use 305.1 [facility] [id number] [place] [address] 95605- 1525 Apr, [facility] [id number] [place] [address] [phone]- [phone] Mar, ADHD (attention deficit hyperactivity disorder), combined type 314.01 ; Generalized anxiety disorder 300.02 ; Dysthymic disorder 300.4 ; No condition on [place] V71.09 ; Rheumatoid arthritis 714.0 ; Incontinence 788.30 ; Irritable bowel syndrome 564.1 ; Osteoporosis 733.00 and Chronic pain 338.29 [facility] [id number] [place] [address] [id number] 16 Mar, 2015 Agoraphobia with panic disorder 300.21 and Major depressive disorder, recurrent episode, moderate 296.32 [facility] [id number] [place] [address] [phone]- [phone] Mar, [facility] [id number] [place] [phone]- [phone] February, [facility] [id number] [place] [address] [phone]- [phone] February, Agoraphobia with panic disorder 300.21 and Major depressive disorder, recurrent episode, moderate 296.32 [facility] [id number] [place] [address] [phone]- [phone] February, [facility] [id number] [place] [phone]- [phone] Jan, [place] [facility] [id number] [place] [address]- 6947 Jan, [facility] [id number] [place] [address]- [address]64 Dec, [facility] [id number] [address] Dec, [facility] [place] [facility] [address] [id number] [place] [address] 1192 Dec, [facility] [place] [facility] [address] [id number] [place] [address]- 4562 Dec, [facility] [place] [facility] [address] [id number] [place] [address]- 9451 Dec, [facility] [place] [facility] [address] [id number] [place] [address]- 0221 Dec, [facility] [place] [facility] [address] [id number] [place] [address] 0260 Nov, 2014 [facility] [place] [facility] [address] [id number] [place] [address]- 0261 Nov, [facility] [place] [facility] [address] [facility] [id number] [place] [address]- 4195 Nov, [facility] [place] [facility] [address] [id number] [place] [address]- 5147 Nov, [facility] [place] [facility] [address] [id number] [place] [address]- 1505 Nov, [facility] [place] [facility] [address] [facility] [id number] [place] [address]- 6915 Nov, [facility] [place] [facility] [address] [facility] [id number] [place] [address]- 8881 Nov, [facility] [place] [facility] [address] [id number] [place] [address]- 7561 Nov, [facility] [place] [facility] [address] [id number] [place] [address]- 6589 Oct, [facility] [place] [facility] [address] [facility] [id number] [place] [address]- 8346 Oct, [facility] [place] [facility] [address] [facility] [id number] [place] [address]- 8527 Oct, [facility] [place] [facility] [address] [id number] [place] [address]- 0898 Oct, [facility] [place] [facility] [address] [id number] [place] [address]- 4229 Oct, [facility] [place] [facility] [address] [id number] [place] [address]- 5111 Oct, [facility] [place] [facility] [address] [id number] [place] [address]- 5644 Sep, [facility] [place] [facility] [address] [id number] [place] [address]- 3156 Sep, [facility] [place] [facility] [address] [id number] [place] [address]- 9849 Sep, [facility] [place] [facility] [address] [id number] [place] [address]- 9463 Sep, [facility] [place] [facility] [address] [id number] [place] [address]- 3690 Sep, [facility] [place] [facility] [address] [id number] [place] [address]- 9663 Sep, [facility] [place] [facility] [address] [id number] [place] [address]- 6500 Sep, [facility] [place] [facility] [address] [id number] [place] [address]- 9532 Aug, [facility] [place] [facility] [address] [id number], [place] [address]- 0166 Aug, [facility] [place] [facility] [address] [id number] [place] [address]- 4827 Aug, [facility] [place] [facility] [address] [id number] [place] [address]- 7799 Aug, [facility] [place] [facility] [address] [id number] [place] [address]- 3572 Aug, [facility] [place] [facility] [address] [id number] [place] [address]- 2164 Aug, [facility] [place] [facility] [address] [id number] [place] [address]- 2044 Jul, [facility] [place] [facility] [address] [id number] [place] [address]- 5630 Jul, [facility] [place] [facility] [address] [id number] [place] [address]- 8359 Jul, [facility] [place] [facility] [address] [id number] [place] [address]- 0997 Jul, [facility] [place] [facility] [address] [id number] [place] [address]- 8944 Jul, [facility] [place] [facility] [address] [id number] [place] [address]- 8714 Jul, [facility] [place] [facility] [address] [id number] [place] [address]- 8165 Jun, [facility] [place] [facility] [address] [id number] [place] [address]- 6800 Jun, [facility] [place] [facility] [address] [id number] [place] [address]- 5816 May, [facility] [place] [facility] [address] [id number] [place] [address]- 4977 May, [facility] [place] [facility] [address] [id number] [place] [address]- 9622 Apr, [facility] [place] [facility] [address] [id number] [place] [address]- 7973 Apr, [facility] [place] [facility] [address] [id number] [place] [address]- 6180 Apr, [facility] [place] [facility] [address] [id number] [place] [address]- 5825 Apr, [facility] [place] [facility] [address] [id number] [place] [address]- 7116 Mar, [facility] [place] [facility] [address] [id number] [place] [address]- 6056 Mar, [facility] [place] [facility] [address] [id number] [place] [address]- 8382 Mar, [facility] [place] [facility] [address] [id number] [place] [address]- 3005 Mar, [facility] [place] [facility] [address] [id number] [place] [address]- 9350 February, [facility] [place] [facility] [address] [id number] [place] [address]- 5358 February, [facility] [place] [facility] [address] [id number] [place] [address]- 5742 February, [facility] [place] [facility] [address] [id number] [place] [address]- 0981 February, [facility] [place] [facility] [address] [id number] [place] [address]- 6079 February, [facility] [place] [facility] [address] [id number] [place] [address]- 8684 February, [facility] [place] [facility] [address] [id number] [place] [address]- 4159 Jan, [facility] [place] [facility] [address] [id number] [place] [address]- 6131 Jan, [facility] [place] [facility] [address] [id number] [place] [address]- 6035 Dec, [facility] [place] [facility] [address] [id number] [place] [address]- 6476 Dec, [facility] [place] [facility] [address] [id number] [place] [address]- 2470 Nov, [facility] [place] [facility] [address] [id number] [place] [address]- 5788 Nov, [facility] [place] [facility] [address] [id number] [place] [address]- 2297 Oct, [facility] [address] [id number] [place] [address]- 4110 Oct, [facility] [place] [facility] [address] [id number] [place] [address]- 8482 Oct, [facility] [place] [facility] [address] [id number] [place] [address]- 6597 Oct, [facility] [place] [facility] [address] [id number] [place] [address]- 1364 Sep, [facility] [place] [facility] [address] [id number] [place] [address]- 3607 Sep, [facility] [place] [facility] [address] [id number] [place] [address]- 8215 Sep, [facility] [place] [facility] [address] [id number] [place] [address]- 9353 Sep, [facility] [place] [facility] [address] [id number] [place] [address]- 4061 Sep, [facility] [place] [facility] [address] [id number] [place] [address]- 2171 Sep, [facility] [place] [facility] [address] [id number] [place] [address]- 5921 Sep, [facility] [place] [facility] [address] [id number], [place] [address]- 9945 Sep, [facility] [place] [facility] [address] [id number], [place] [address]- 1978 Aug, [facility] [place] [facility] [address] [id number] [place] [address]- 8731 Aug, [facility] [place] [facility] [address] [id number] [place] [address]491 Aug, [facility] [place] [facility] [address] [id number] [place] [address]32 Aug, [facility] [place] [facility] [address] [id number] [place] [address]- 2546 Aug, [facility] [address] [id number] [place] [address]- 4906 Aug, [facility] [place] [facility] [address] [id number] [place] [address]- 2546 Aug, [facility] [address] [id number] [place] [address] 2546 Aug, [facility] [address] [id number] [place] [address] 2547 Aug, [facility] [address] [id number] [place] [address]- 6404 Jul, [facility] [address] [id number] [place] [address]- 3646 Jun, [facility] [address] [id number] [place] [address]- 7820 May, [facility] [address] [id number] [place] [address]- 9910 May, [facility] [address] [id number] [place] [address]- 4184 May, [facility] [address] [id number] [place] [address] 2544 Apr, [facility] [address] [id number] [place] [address]- 2546 Mar, [facility] [address] [id number] [place] [address]- 2549 February, [facility] [place] [facility] [address] [id number] [place] [address]- 2546 Oct, [facility] [place] [facility] [address] [id number] [place] [address]- 2546 16 Oct, 2012 [facility] [place] [facility] [address] [id number] [place] [address]- 2793 Oct, [facility] [place] [facility] [address] [id number] [place] [address]- 5232 14 Oct, 2012 [facility] [place] [facility] [address] [id number] [place] [address]- 8514 Oct, [facility] [place] [facility] [address] [id number] [place] [address]- 3595 Oct, [facility] [place] [facility] [address] [id number] [place] [address]- 8434 Sep, [facility] [place] [facility] [address] [id number] [place] [address]- 8415 Sep, [facility] [place] [facility] [address] [id number] [place] [address]- 3270 Aug, [facility] [place] [facility] [address] [id number] [place] [address]- 2182 Aug, [facility] [place] [facility] [address] [id number] [place] [address]- 6806 Jul, [facility] [place] [facility] [address] [id number] [place] [address]- 1110 Jul, [facility] [place] [facility] [address] [id number] [place] [address]- 9553 Jul, [facility] [place] [facility] [address] [id number] [place] [address]- 1353 Jul, [facility] [place] [facility] [address] [id number], [place] [address]- 9692 Jul, [facility] [place] [facility] [address] [id number] [place] [address]- 6857 Jul, [facility] [place] [facility] [address] [id number] [place] 9500 Jul, [facility] [place] [facility] [address] [id number] [place] [address]- 5691 Jul, [facility] [place] [facility] [address] [id number] [place] [address]- 8729 16 Jun, 2012 [facility] [place] [facility] [address] [id number] [place] [address]- 8105 Jun, [facility] [place] [facility] [address] [id number] [place] [address]- 2101 May, [facility] [place] [facility] [address] [id number] [place] [address]- 6281 Apr, [facility] [place] [facility] [address] [id number] [place] [address]- 8162 Mar, [facility] [place] [facility] [address] [id number] [place] [address]- 3898 Mar, [facility] [place] [facility] [address] [id number] [place] [address]- 7681 Mar, [facility] [place] [facility] [address] [id number] [place] [address]- 7789 Mar, [facility] [place] [facility] [address] [id number] [place] [address]- 9589 Jan, [facility] [place] [facility] [address] [id number] [place] [address]- 6812 Nov, [facility] [place] [facility] [address] [id number] [place] [address]- 8982 Nov, [facility] [place] [facility] [address] [id number] [place] [address]- 5095 Nov, [facility] [place] [facility] [address] [id number] [place] [address]- 4421 Oct, [facility] [place] [facility] [address] [id number] [place] [address]- 3811 Sep, [facility] [place] [facility] [address] [id number] [place] [address]- 8849 Sep, [facility] [place] [facility] [address] [id number] [place] [address]- 2828 Aug, [facility] [address] [id number] [address]- 7819 Aug, [facility] [id number], [place] [address]- 0784 Aug, [facility] [id number], [place] [address]- 9411 Aug, [facility] [address] [id number] [address]- 1288 Jul, [facility] [id number], [place] [address]- 6848 May, [facility] [id number], [place] [address]- 7622 Jan, [facility] [id number], [place] [address]- 3353 Nov, [facility] [id number], [place] [address]- 0521 Apr, [facility] [id number], [place] [address]- 9709 Dec, [facility] [id number], [place] [address]- 9578 Nov, IMMUNIZATIONS No Known Immunizations SOCIAL HISTORY Never Assessed REASON FOR VISIT Hyperinsulin, stroke on the --[facility] C[facility] Activity Details Follow Up 4 Weeks Reason:anxiety VITAL SIGNS Height 67 in 2017-09-15 Weight 203.7 lbs 2017-09-15 Temperature 99.0 degrees Fahrenheit 2017-09-15 Heart Rate 84 bpm 2017-09-15 Respiratory Rate 22 2017-09-15 BMI 31.90 kg/m2 2017-09-15 Blood pressure systolic 122 mmHg 2017-09-15 Blood pressure diastolic 72 mmHg 2017-09-15 MEDICATIONS Medication Instructions Dosage Frequency Start Date End Date Duration Status Zofran 4 MG Orally 3 times a day 1 tablet 8h 19 May, 2016 Active Crestor 10 mg Orally Once a day 1 tablet 24h Aug, Active Venlafaxine HCl ER 150 MG Orally Once a day 1 capsule with food 24h Aug 30 day(s) Active Trulicity 1.5 MG/0.5ML Subcutaneous once weekly INJECT 0.5 MLS SUBCUTANEOUSLY ONCE A WEEK 28 Active Vitamin D3 2000 UNIT Orally Once a day 1 capsule 24h Not-Taking Pantoprazole Sodium 40 mg Orally Once a day 1 tablet 24h Sep, 90 days Active Cyclobenzaprine HCl 10 MG Orally 2 times a day 1 tablet as needed 12h 19 Jul, 2016 Active Albuterol Sulfate (2.5 MG/3ML) 0.083% Inhalation every 4 hours 3 ml as needed for cough or wheeze 4h 13 Jul, 2014 Active Clopidogrel Bisulfate 75 MG Orally Once a day 1 tablet 24h Active Effexor XR 75 MG Orally twice a day 1 capsule with food 12h Active Gabapentin 600 MG Orally Three times a day 1 capsule 8h 07 Nov, 2016 Active Xanax XR 0.5 MG Orally Once a day 1 tablet in the morning 24h Sep, Active Tramadol HCl 50 mg Orally 4 times a day PRN PAIN 1-2 tablets Active Xeljanz 5 mg 1 Tablet by Oral route 2 times per day Dec, Active Ventolin HFA 108 (90 Base) MCG/ACT Inhalation every 6 hrs 2 puffs as needed 6h Aug, Active Metoprolol Tartrate 25 MG Orally Twice a day 1 tablet with food 12h Active Advair Diskus 100-50 MCG/DOSE Inhalation Twice a day 1 puff 12h 05 Jul, 2016 Active RESULTS No Results PROCEDURES Procedure Date Ordered Result Body Site [facility] VISIT ESTABLISHED PATIENT Sep 15, 2017 INSTRUCTIONS MEDICATIONS ADMINISTERED No Known Medications MEDICAL (GENERAL) HISTORY Type Description Date Medical History Cardiovascular aeielowo-YVE-Amggsklv, 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 Mendoza Medical History Stress test 03/07/13-Dr. Kelly Dietrich normal Medical History Hypertension Medical History Asthma Medical History Gastrointestinal Disorder--IBS, GERD, Hx of fatty liver Medical History Hernia 1978 Medical History Cervical dysplasia 02/16-Pap LGSIL/[place]-mild dysplasia Medical History Hyperlipidemia Medical History Rheumatoid [...] at [facility] 05/13/16 Hospitalization History Stroke 05/03/2017 Hospitalization History stroke 08/24/2017--09/01/2017
[2018-06-12 16:04] LABS: ABG BASE EXCESS -5.4 MMOL/L (-2.5-2.5); ABG OXYGEN SATURATION 96 % (94-100); ABG PCO2 37 MMHG (35-45); ABG PO2 71 MMHG (79-93); ABG TCO2 20.7 MMOL/L (21.0-31.0)
--- NOTE | 2018-06-12 16:04 | ED General ---
General Stated Complaint: FALL,GENERALIZED WEAKNESS Source of Information: Patient Exam Limitations: No Limitations History of Present Illness Date Seen by Provider: Jun 12, 2018 Time Seen by Provider: 15:40 Initial Comments Here by EMS with weakness and at least 2 falls over the last 2 days. Patient is a poor historian but does no place and date of . She is unsure of time. Family called that she was increasingly weak today. She is coughing with fairly significant shortness of breath. She did receive duo neb treatment in route. Last known well time 2 days ago. Does have history of previous strokes. No focal deficits. EMS. Patient was noted to be in the upper 80s on oxygen saturation per EMS and low 90s after 2 L of nasal cannula. Timing/Duration: 2-3 Days, Getting Worse Severity: Moderate Associated Systoms: Cough, Weakness Allergies and Home Medications Allergies Coded Allergies: Iodinated Contrast- Oral and IV Dye (Verified Allergy, Intermediate, ) doxycycline (Unverified Allergy, Intermediate, FACIAL SWELLING, 03/29/17) fluticasone furoate (Verified Allergy, Intermediate, N/V, 03/29/17) paroxetine (Verified Allergy, Intermediate, 03/29/17) vilanterol (Verified Allergy, Intermediate, N/V, 03/29/17) methylprednisolone (Unverified Allergy, Mild, flushing and skin burning and eye itching, 03/29/17) codeine (Verified Allergy, Unknown, HIVES, 03/29/17) hydrocodone (Unverified Adverse Reaction, Intermediate, DYSPNEA, HIVES, ) oxybutynin (Verified Adverse Reaction, Mild, sores in mouth, 03/29/17) Uncoded Allergies: PAPER TAPE (Allergy, Unknown, BLISTERS/SORES, 07/10/15) Home Medications Albuterol Sulfate 1 Puff Puff, 2 PUFF IH Q4H PRN for SHORTNESS OF BREATH, ( Reported) 1 PUFF = 90 MCG Alprazolam 0.5 Mg Tablet, 0.5 MG PO BID PRN for ANXIETY, (Reported) Aripiprazole 5 Mg Tablet, 5 MG PO DAILY, (Reported) Clopidogrel Bisulfate 75 Mg Tablet, 75 MG PO DAILY Prescribed by: CHELSI CORDOBA on 09/01/17 1014 Cyclobenzaprine HCl 10 Mg Tablet, 10 MG PO BID PRN for MUSCLE SPASMS, (Reported) Dicyclomine HCl 20 Mg Tablet, 20 MG PO BID, (Reported) Dicyclomine HCl 20 Mg Tablet, 20 MG PO DAILY PRN for STOMACH UPSET, (Reported) Fluticasone Propionate 9.9 Ml [place].susp, 1 SPRAY NS BID, (Reported) Fluticasone/Salmeterol 1 Each Blst.w.dev, 1 PUFF IH BID, (Reported) LAST FILLED 03-08-18 Furosemide 20 Mg Tablet, 20 MG PO DAILY, (Reported) Gabapentin 600 Mg Tablet, 600 MG PO TID, (Reported) Guaifenesin 400 Mg Tablet, 400 MG PO TID PRN for CONGESTION, (Reported) Levocetirizine Dihydrochloride 5 Mg Tablet, 5 MG PO DAILY IN EVENING, (Reported) Metoprolol Tartrate 25 Mg Tablet, 25 MG PO BID, (Reported) LAST FILLED 11-11-17 90 DAYS Montelukast Sodium 10 Mg Tablet, 10 MG PO HS, (Reported) Ondansetron HCl 4 Mg Tab, 4 MG PO TID PRN for NAUSEA/VOMITING-1ST LINE, ( Reported) Pantoprazole Sodium 40 Mg Tablet.dr, 40 MG PO DAILY, (Reported) Potassium Chloride 10 Meq Capsule.er, 10 MEQ PO DAILY, (Reported) Simvastatin 40 Mg Tablet, 40 MG PO HS, (Reported) Tofacitinib Citrate 5 Mg Tablet, 5 MG PO BID, (Reported) Tramadol HCl 50 Mg Tablet, 50-100 MG PO EVERY 4-6 HOURS PRN for PAIN-MODERATE, ( Reported) Venlafaxine HCl 150 Mg Cap.er.24h, 300 MG PO DAILY Prescribed by: ROHIT AZEVEDO on 06/13/18 1605 Zolpidem Tartrate 5 Mg Tablet, 5 MG PO HS PRN for SLEEP, (Reported) Patient Home Medication List Home Medication List Reviewed: Yes Review of Systems Review of Systems Constitutional: see HPI; No chills, No fever Respiratory: cough, short of breath, wheezing Cardiovascular: No chest pain; edema Gastrointestinal: No abdominal pain, No nausea, No vomiting Psychiatric/Neurological: See HPI; Denies Anxiety; Weakness Unable to complete review of systems due to altered mental status Past Lnwgpix-Fvoppe-Bcnvcn Hx Past Med/Social Hx: Reviewed Nursing Past Med/Soc Hx Patient Social History Alcohol Beverage of Choice: Wine Smoking Status: Current Everyday Smoker Type Used: Cigarettes Recent Hopitalizations: No Immunizations Up To Date Tetanus Booster (TDap): Unknown Date of Pneumonia Vaccine: Aug 18, 2017 Date of Influenza Vaccine: Aug 18, 2017 Seasonal Allergies Seasonal Allergies: Yes Past Medical History Surgeries: Yes (port placement/REMOVED, bladder stimulator, Right ear surgery, HEART MONITO) Tubal Ligation Respiratory: Yes (cpap at night) Sleep Apnea, Emphysema Currently Using CPAP: Yes Currently Using BIPAP: No Cardiac: Yes High Cholesterol, Hypertension Neurological: Yes (2 STROKES IN AND 2016) Stroke, TIA 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 Disorders: No 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: Tubal Ligation, Menopausal Sexually Transmitted Disease: No HIV/AIDS: No Genitourinary: Yes (bladder stimulator) Kidney Infection, Bladder Infection, Renal Failure Gastrointestinal: Yes (Esophageal spasm) Gastroesophageal Reflux, Irritable Bowel Musculoskeletal: Yes ("3 bulging disks", CHRONIC BILATERAL LEG PAIN) Arthritis, Rheumatoid Arthritis, Chronic Back Pain Endocrine: No HEENT: No Loss of Vision: Bilateral Hearing Impairment: Denies Cancer: No Psychosocial: Yes Anxiety, Depression Integumentary: No Blood Disorders: Yes (Anemia) Adverse Reaction/Blood Tranf: No (N/A) Family Medical History Reviewed Nursing Family Hx Dementia 19 MOTHER FH: prostate cancer son, Onset:25's - 30 No Pertinent Family Hx, Cancer, Psychiatric Problems Physical Exam Vital Signs Vital Signs - First Documented 06/12/18 06/12/18 06/13/18 15:37 15:40 20:00 Temp 97.2 Pulse 75 Resp 22 B/P (MAP) 90/54 (66) Pulse Ox 90 O2 Delivery Nasal Cannula O2 Flow Rate 2.00 FiO2 55 Capillary Refill : Height, Weight, BMI Height: 5'6.00" Weight: 200lbs. 0.0oz. 90.411463ih; 32.3 BMI Method:Stated General Appearance: WD/WN, Mild Distress (respiratory) HEENT: PERRL/EOMI, Pharynx Normal Neck: Non Tender, Supple Respiratory: Crackles, Decreased Breath Sounds, Expiration, Wheezing Cardiovascular: Regular Rate, Rhythm, No Murmur Gastrointestinal: Non Tender, Soft Back: Normal Inspection, No CVA Tenderness, No Vertebral Tenderness Extremity: Normal Range of Motion, Non Tender Neurologic/Psychiatric: Alert, No Motor/Sensory Deficits, Disoriented Skin: Normal Color, Warm/Dry Focused Exam Lactate Level Lactic Acid Level Progress/Results/Core Measures Suspected Sepsis SIRS Temperature: Pulse: Respiratory Rate: Laboratory Tests 06/16/18 04:05: White Blood Count 7.6 06/17/18 03:30: White Blood Count 8.9 Blood Pressure / Mean: Laboratory Tests 06/15/18 08:35: INR Comment 1.2 06/16/18 04:05: Creatinine 0.80, Platelet Count 314 06/16/18 04:40: Creatinine 0.81, Total Bilirubin 0.5 06/17/18 03:30: Creatinine 0.86, Platelet Count 341 Results/Orders Lab Results Laboratory Tests Test 06/16/18 04:05 06/16/18 04:40 06/16/18 14:57 06/16/18 18:44 Range/Units White Blood Count 7.6 4.3-11.0 10^3/uL Red Blood Count 3.40 L 4.35-5.85 10^6/uL Hemoglobin 10.2 L 11.5-16.0 G/DL Hematocrit 31 L 35-52 % Mean Corpuscular Volume 90 80-99 FL Mean Corpuscular Hemoglobin 30 25-34 PG Mean Corpuscular Hemoglobin Concent 33 32-36 G/DL Red Cell Distribution Width 15.9 H 10.0-14.5 % Platelet Count 314 130-400 10^3/uL Mean Platelet Volume 9.3 7.4-10.4 FL Neutrophils (%) (Auto) 85 H 42-75 % Lymphocytes (%) (Auto) 10 L 12-44 % Monocytes (%) (Auto) 5 0-12 % Eosinophils (%) (Auto) 0 0-10 % Basophils (%) (Auto) 0 0-10 % Neutrophils # (Auto) 6.4 1.8-7.8 X 10^3 Lymphocytes # (Auto) 0.7 L 1.0-4.0 X 10^3 Monocytes # (Auto) 0.4 0.0-1.0 X 10^3 Eosinophils # (Auto) 0.0 0.0-0.3 10^3/uL Basophils # (Auto) 0.0 0.0-0.1 10^3/uL Blood Gas Puncture Site RT RADIAL Blood Gas Patient Temperature 98.1 Arterial Blood pH 7.39 7.37-7.43 Arterial Blood Partial Pressure CO2 41 35-45 MMHG Arterial Blood Partial Pressure O2 97 H 79-93 MMHG Arterial Blood HCO3 24 23-27 MMOL/L Arterial Blood Total CO2 25.3 21.0-31.0 MMOL/L Arterial Blood Oxygen Saturation 98 94-100 % Arterial Blood Base Excess -0.4 -2.5-2.5 MMOL/L Tanner Test ART LINE Blood Gas Ventilator Setting YES Blood Gas Inspired Oxygen 50% Sodium Level 138 137 135-145 MMOL/L Potassium Level 3.9 3.8 3.6-5.0 MMOL/L Chloride Level 107 106 98-107 MMOL/L Carbon Dioxide Level 23 23 21-32 MMOL/L Anion Gap 8 8 5-14 MMOL/L Blood Urea Nitrogen 12 13 7-18 MG/DL Creatinine 0.80 0.81 0.60-1.30 MG/DL Estimat Glomerular Filtration Rate > 60 > 60 BUN/Creatinine Ratio 15 16 Glucose Level 169 H 166 H 70-105 MG/DL Calcium Level 8.6 8.5 8.5-10.1 MG/DL Phosphorus Level 2.6 2.3-4.7 MG/DL Magnesium Level 2.2 1.8-2.4 MG/DL Corrected Calcium 9.3 8.5-10.1 MG/DL Total Bilirubin 0.5 0.1-1.0 MG/DL Aspartate Amino Transf (AST/SGOT) 19 5-34 U/L Alanine Aminotransferase (ALT/SGPT) 18 0-55 U/L Alkaline Phosphatase 66 40-136 U/L Total Protein 6.3 L 6.4-8.2 GM/DL Albumin 3.0 L 3.2-4.5 GM/DL Glucometer 141 H 158 H 70-110 MG/DL Test 06/17/18 00:45 06/17/18 03:30 06/17/18 12:08 06/17/18 18:06 Range/Units Glucometer 172 H 179 H 206 H 70-110 MG/DL White Blood Count 8.9 4.3-11.0 10^3/uL Red Blood Count 3.52 L 4.35-5.85 10^6/uL Hemoglobin 10.4 L 11.5-16.0 G/DL Hematocrit 32 L 35-52 % Mean Corpuscular Volume 91 80-99 FL Mean Corpuscular Hemoglobin 30 25-34 PG Mean Corpuscular Hemoglobin Concent 33 32-36 G/DL Red Cell Distribution Width 16.1 H 10.0-14.5 % Platelet Count 341 130-400 10^3/uL Mean Platelet Volume 9.0 7.4-10.4 FL Neutrophils (%) (Auto) 81 H 42-75 % Lymphocytes (%) (Auto) 12 12-44 % Monocytes (%) (Auto) 7 0-12 % Eosinophils (%) (Auto) 0 0-10 % Basophils (%) (Auto) 0 0-10 % Neutrophils # (Auto) 7.2 1.8-7.8 X 10^3 Lymphocytes # (Auto) 1.1 1.0-4.0 X 10^3 Monocytes # (Auto) 0.6 0.0-1.0 X 10^3 Eosinophils # (Auto) 0.0 0.0-0.3 10^3/uL Basophils # (Auto) 0.0 0.0-0.1 10^3/uL Blood Gas Puncture Site RIGHT RADIAL Blood Gas Patient Temperature 99.2 Arterial Blood pH 7.41 7.37-7.43 Arterial Blood Partial Pressure CO2 41 35-45 MMHG Arterial Blood Partial Pressure O2 80 79-93 MMHG Arterial Blood HCO3 25 23-27 MMOL/L Arterial Blood Total CO2 26.4 21.0-31.0 MMOL/L Arterial Blood Oxygen Saturation 96 94-100 % Arterial Blood Base Excess 1.1 -2.5-2.5 MMOL/L Tanner Test ART LINE Blood Gas Ventilator Setting YES Blood Gas Inspired Oxygen 30% Sodium Level 137 135-145 MMOL/L Potassium Level 4.1 3.6-5.0 MMOL/L Chloride Level 105 98-107 MMOL/L Carbon Dioxide Level 21 21-32 MMOL/L Anion Gap 11 5-14 MMOL/L Blood Urea Nitrogen 22 H 7-18 MG/DL Creatinine 0.86 0.60-1.30 MG/DL Estimat Glomerular Filtration Rate > 60 BUN/Creatinine Ratio 26 Glucose Level 181 H 70-105 MG/DL Calcium Level 8.4 L 8.5-10.1 MG/DL Phosphorus Level 2.4 2.3-4.7 MG/DL Magnesium Level 2.4 1.8-2.4 MG/DL Test 06/18/18 01:05 Range/Units Glucometer 199 H 70-110 MG/DL My Orders Orders - JAIRO PARKER MD Iv Infusion <= First Hr Ed (06/12/18 ) Medications Given in ED Vital Signs/I&O 06/17/18 06/17/18 06/17/18 06/17/18 16:00 16:12 16:14 16:15 Temp 97.6 Pulse 61 59 64 64 Resp 13 22 20 15 B/P (MAP) 151/69 (96) 147/67 146/66 Pulse Ox 95 96 98 98 O2 Delivery Mechanical Ventilator Mechanical Ventilator Mechanical Ventilator O2 Flow Rate 30.00 30.00 30.00 FiO2 30 06/17/18 06/17/18 06/17/18 06/17/18 16:30 17:00 18:00 18:44 Pulse 61 61 61 Resp 12 9 22 B/P (MAP) 161/74 (103) 142/64 (90) Pulse Ox 98 99 99 O2 Delivery Mechanical Ventilator Mechanical Ventilator Mechanical Ventilator O2 Flow Rate 30.00 30.00 FiO2 30 30 06/17/18 06/17/18 06/17/18 06/17/18 19:00 19:00 19:02 19:32 Temp 97.6 96.9 Pulse 69 68 67 Resp 13 20 B/P (MAP) 139/62 (87) 139/62 (87) Pulse Ox 96 95 O2 Delivery Mechanical Ventilator Mechanical Ventilator O2 Flow Rate 30.00 30.00 06/17/18 06/17/18 06/17/18 06/17/18 20:00 20:00 21:00 22:00 Pulse 64 65 61 Resp 17 18 20 B/P (MAP) 148/63 (91) 141/60 (87) 151/66 (94) Pulse Ox 96 95 96 94 O2 Delivery Mechanical Ventilator Mechanical Ventilator Mechanical Ventilator Mechanical Ventilator O2 Flow Rate 30.00 30.00 30.00 FiO2 30 06/17/18 06/17/18 06/17/18 06/18/18 23:00 23:05 23:36 00:00 Temp 96.9 Pulse 64 60 60 64 Resp 18 20 20 14 B/P (MAP) 139/62 (87) 151/66 146/61 (89) Pulse Ox 96 95 95 95 O2 Delivery Mechanical Ventilator Mechanical Ventilator Mechanical Ventilator O2 Flow Rate 30.00 30.00 30.00 FiO2 30 06/18/18 06/18/18 06/18/18 06/18/18 00:00 01:00 01:00 01:30 Pulse 62 62 61 Resp 16 20 B/P (MAP) 141/60 (87) Pulse Ox 95 95 95 O2 Delivery Mechanical Ventilator Mechanical Ventilator O2 Flow Rate 30.00 FiO2 30 30 Capillary Refill : Progress Note : Progress Note Seen and evaluated. IV by EMS. Labs, EKG, chest x-ray, CT head ordered. Duo neb ordered. Patient placed on O2 due to oxygen saturation 88 percent on room air. Blood pressure noted to be 80s to 90s systolic. Concerns for sepsis at this point given patient's respiratory status so we will initiate high-volume fluid resuscitation but will use ideal body weight for female 5 feet 6 inches. BMI exceeds 30. [place] body weight with the right at 60 kg. 2 L of normal saline has been ordered which will see him in a 30 mL/kg bolus. Monitor patient. Albuterol neb dosing continued 3 more nebs. Improved afterwards with O2 sat in the mid upper 90s on 2 L via nasal cannula. 1909: Dysphagia screen is complete. Rocephin 1 g IV and hydrocortisone 100 mg IV ordered. We will continue fluid at 250 mL an hour. Repeat albuterol neb now. Patient has been resting comfortably and blood pressure has improved with fluids and currently is 104/87 with heart rate of 87 and O2 sat 94 percent on 2 L. I attest a focused exam at this time. Patient still has coarse cough. I did discuss the case with Dr. Azevedo and she accepts patient to admission to the ICU. Patient is noted to be on Xanax and Ambien which was not noted earlier. Patient states that she took her last dose of Ambien last night. This may be part of her drowsiness. Hydrocortisone for potential adrenal insufficiency as she sometimes is on steroids. I did discuss all of this with the patient and family and all agree to admission. Patient to go to ICU. ECG Initial ECG Impression Date: Jun 12, 2018 Initial ECG Impression Time: 16:49 Initial ECG Rate: 79 Initial ECG Rhythm: Normal Sinus Comment Sinus rhythm with normal axis. No evidence of ST elevation MS. Similar to previous of 08/24/17. Interpreted by me. Diagnostic Imaging Diagonstic Imaging: CT Plain Films/CT/US/NM/MRI: head Comments [facility] [employer] [facility]. [place], [place] NAME: TREVER KWON [facility] REC#: [id number] PT STATUS: REG ER : 1955 PHYSICIAN: JAIRO PARKER MD ADMIT DATE: 06/12/18/ER Draft Date of Exam:06/12/18 CT HEAD WO-R/O STROKE EXAM: CT HEAD WO-R/O STROKE INDICATION: Leg weakness. Altered mental status. Slurred speech. COMPARISON: CT head without contrast from 08/24/2017. FINDINGS: No intracranial hemorrhage, mass effect, hydrocephalus, or extra-axial fluid collections. No CT evidence of acute infarction. Osseous structures are intact. The visualized paranasal sinuses and mastoids are unremarkable. IMPRESSION: No acute intracranial CT findings. Dictated on workstation # [id number] Dict: 06/12/18 1652 Trans: 06/12/18 1701 [id number] Interpreted by: DENISSE DEMPSEY MD Electronically signed by: Ann-Marie Imaging: Xray Plain Films/CT/US/NM/MRI: chest Comments [facility] [id number] PT STATUS: REG ER : 1955 PHYSICIAN: JAIRO PARKER MD ADMIT DATE: 06/12/18/ER Draft Date of Exam:06/12/18 CHEST 1 VIEW, AP/PA ONLY INDICATION: Wheezing. EXAMINATION: Portable erect AP chest at 4:42 p.m. FINDINGS: The heart is enlarged and has increased in size since the prior exam of 04/17/2018. Furthermore, in the interval since the prior study, alveolar/interstitial pulmonary infiltrates have developed in the right suprahilar region, the left upper lung and the left midlung. These findings could be secondary to pulmonary edema, pneumonia/atelectasis or a combination of all three. The periphery of the right lung is generally clear and there is no significant pleural effusion in either lung base. The mediastinum is not widened. The osseous structures are intact. There is a loop recorder device again noted overlying the left thorax. IMPRESSION: The appearance of the chest has worsened since the prior study as the heart has increased in size and alveolar/interstitial pulmonary infiltrates have developed, bilaterally, particularly on the left. These abnormal parenchymal densities may be related to pulmonary edema, pneumonia, atelectasis or a combination of all three. A followup exam would be recommended for continued evaluation. Dictated on workstation # [id number] Dict: 06/12/18 1646 Trans: 06/12/18 1711 [facility] [id number] Interpreted by: JIM PAYAN MD Electronically signed by: Departure Communication (Admissions) Time/Spoke to Admitting Phy: 18:46 Impression Primary Impression: Pneumonia involving left lung Qualified Codes: J18.1 - Lobar pneumonia, unspecified organism Additional Impressions: Acute renal failure Qualified Codes: N17.9 - Acute kidney failure, unspecified Altered mental status Qualified Codes: R41.0 - Disorientation, unspecified Labile blood pressure Disposition: ADMITTED INPATIENT Condition: Stable Admissions Decision to Admit Reason: Admit from ER (General) Decision to Admit/Date: Jun 12, 2018 Time/Decision to Admit Time: 18:46 Departure-Patient Inst. Referrals: [facility] (PCP) Primary Care Physician TREVER SNOWDEN (Family) Primary Care Physician Scripts Venlafaxine HCl (Venlafaxine HCl ER) 150 Mg Cap.er.24h 300 MG PO DAILY for 30 Days, CAP Prov: ROHIT AZEVEDO DO 06/13/18 JAIRO PARKER MD Jun 12, 2018 16:04
--- OUTSIDE RECORDS SUMMARY | 2018-06-12 16:04 | XMS REPORT ---
Author Author LORI SNOWDEN Organization [facility] Address [address] [place] [address] Care Team Providers [facility] Police Officer Name Role Phone LORI SNOWDEN Unavailable PROBLEMS Type Condition ICD9-CM Code JFO46-NV Code Onset Dates Condition Status SNOMED Code Problem Chronic obstructive pulmonary disease, unspecified J44.9 Active [id number] Problem Other shelter (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 Active 543080351 Problem Obstructive sleep apnea G47.33 Active 21078672 Problem Anxiety F41.9 Active 67524520 Problem ADHD (attention deficit hyperactivity disorder), combined type F90.2 Active 49505472 Problem Gastroesophageal reflux disease with esophagitis K21.0 Active 885908383 Problem Generalized anxiety disorder F41.1 Active 90514625 Problem Sleep apnea in adult G47.30 Active 69118305 Problem Cerebrovascular accident (CVA), unspecified mechanism I63.9 Active 093846410 Problem Rheumatoid arthritis involving multiple sites, unspecified rheumatoid factor presence M06.9 Active 965823314 Problem Dysthymic disorder F34.1 Active 92881808 Problem Chronic pain syndrome G89.4 Active 191334671 Problem Asthma J45.909 Active 751364859 Problem Weight gain R63.5 Active 2734776 Problem Rheumatoid arthritis M06.9 Active 34944844 Problem Arteriosclerotic coronary artery disease I25.10 Active 15175982 Problem Hyperinsulinemia E16.1 Active 65492467 Problem Hypertension I10 Active 98955208 Problem Neuropathy G62.9 Active 574124667 Problem Mixed hyperlipidemia E78.2 Active 062055478 Problem Other insomnia G47.09 Active 451701784 ALLERGIES No Information ENCOUNTERS Encounter Location Date Diagnosis [facility] [id number], [place] [address] Dec, [facility] [id number] [place] [address] 81468- 3180 Dec, [facility] [id number] [place] [address] 78510- 6519 Dec, [facility] [id number] [place] [address] Nov, Dysthymic disorder F34.1 [facility] [address] 62058- 2526 Oct, [facility] [address] 14317- 3399 Oct, [address] 71059- 2637 Oct, [facility] [address] 73777- 3992 Oct, Diarrhea, unspecified type R19.7 and Dysuria R30.0 [place] [address] 71080- 2235 Oct, [facility] [id number] [place] [address] 17008- 6000 Sep, [place] [id number] [place] [address] 09894- 2107 Sep, [place] [id number] [place] [address] 15839- 0248 Sep, Anxiety F41.9 [place] [address] 82064- 9183 Sep, Cerebrovascular accident (CVA), unspecified mechanism I63.9 ; Mixed hyperlipidemia E78.2 ; Gastroesophageal reflux disease with esophagitis K21.0 and Anxiety F41.9 [facility] [id number] [place] [address] 08160- 3532 Sep, [facility] [address] 91667- 9824 Aug, Chronic obstructive pulmonary disease, unspecified J44.9 ; Asthma J45.909 ; Nausea R11.0 ; Dysthymic disorder F34.1 ; Cerebrovascular accident (CVA), unspecified mechanism I63.9 and Rheumatoid arthritis M06.9 [facility] [address] 58055- 5306 Aug, Nausea R11.0 ; Encounter for immunization Z23 ; Sleep apnea in adult G47.30 ; Rheumatoid arthritis involving multiple sites, unspecified rheumatoid factor presence M06.9 ; Generalized anxiety disorder F41.1 ; Dysthymic disorder F34.1 and Asthma J45.909 [place] [address] 87092- 2057 Jul, [place] [address] 66024- 7777 May, ADHD (attention deficit hyperactivity disorder), combined type F90.2 ; Generalized anxiety disorder F41.1 and Persistent depressive disorder F34.1 [place] [address] 89763- 9438 May, Cerebrovascular accident (CVA), unspecified mechanism I63.9 [address] [address] 92626- 0416 Apr, Mixed hyperlipidemia E78.2 and Cerebrovascular accident (CVA ), unspecified mechanism I63.9 [place] [address] 12235- 9410 Apr, Generalized anxiety disorder F41.1 [place] [address] 47429- 9584 Apr, Bronchitis J40 and Tobacco use Z72.[address] 13621- 6320 Apr, Mixed hyperlipidemia E78.2 [place] [address] 08736- 5640 Apr, 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 [facility] [address] [place] [address] 75311- 6476 Apr, [facility] [id number] [place] [address] 88529- 1519 Apr, Generalized anxiety disorder F41.1 [facility] [id number] [place] [address] 91865- 2844 Apr, Obstructive sleep apnea G47.33 and Hyperinsulinemia E16.1 [facility] [id number] [place] [address] 10692- 3637 Apr, ADHD (attention deficit hyperactivity disorder), combined type F90.2 ; Generalized anxiety disorder F41.1 and Persistent depressive disorder F34.1 [place] [id number] [place] [address] 21013- 7585 Mar, [place] [id number] [place] [address] 18376- 2153 Mar, Generalized anxiety disorder F41.1 [place] [id number] [place] [address] 64121- 8537 Mar, Tarsal tunnel syndrome of both lower extremities G57.53 [place] [id number] [place] [address] 39284- 7055 February, [facility] [id number] [place] [address] 81482- 8831 February, [place] [id number] [place] [address] 38308- 2034 February, Asthma J45.909 [facility] [id number] [place] [address] 76485- 1746 February, Generalized anxiety disorder F41.1 [facility] [id number] [place] [address] 45356- 8578 February, Hypoxemia R09.02 ; Hyperglycemia R73.9 ; Rheumatoid arthritis M06.9 and Generalized anxiety disorder F41.1 [place] [id number] [place] [address] 42961- 2170 February, [facility] [id number] [place] [address] 02155- 5009 Jan, Chronic obstructive pulmonary disease, unspecified J44.9 [facility] [id number] [place] [address] 40832- 8612 Jan, Chronic pain syndrome G89.4 [address] [address] 80080- 1106 Jan, Hypoxemia R09.02 [address] [address] 69082- 9430 Jan, [place] [id number] [place] [address] 59503- 1249 Jan, Chronic obstructive pulmonary disease, unspecified J44.9 ; Hypoxemia R09.02 ; Other insomnia G47.09 and Left anterior shoulder pain M25.512 [place] [id number] [place] [address] 21590- 4733 Jan, Numbness in feet R20.0 and Neuropathy G62.9 [place] [id number] [place] [address] 23713- 7655 Jan, [place] [id number] [place] [address] 65096- 3199 Dec, Acute pain of left shoulder M25.512 [place] [id number] [place] [address] 85082- 6407 Dec, Acute pain of left shoulder M25.512 [place] [id number] [place] [address] 89076- 9697 Dec, Generalized anxiety disorder F41.1 [facility] [id number] [place] [address] 92713- 6041 Dec, Generalized anxiety disorder F41.1 [place] [id number] [place] [address] 30394- 7091 Nov, ADHD (attention deficit hyperactivity disorder), combined type F90.2 ; Generalized anxiety disorder F41.1 and Persistent depressive disorder F34.1 [facility] [id number] [place] [address] 86189- 3865 Nov, Acute pain of left shoulder M25.512 [facility] [id number] [place] [address] 25543- 5272 Nov, ADHD (attention deficit hyperactivity disorder), combined type F90.2 ; Generalized anxiety disorder F41.1 and Persistent depressive disorder F34.1 [facility] [id number] [place] [address] 72819- 4193 Nov, Chronic pain syndrome G89.4 [facility] [id number] [place] [address] 79363- 5460 Nov, Chronic pain syndrome G89.4 [facility] [id number] [place] [address] 31237- 1650 Nov, Acute pain of left shoulder M25.512 [facility] [id number] [place] [address] 18808- 8860 Nov, Generalized anxiety disorder F41.1 [facility] [address] [place] [address] 88983- 8149 Nov, Acute pain of left shoulder M25.512 [facility] [address] [place] [address] 35670- 5444 Nov, ADHD (attention deficit hyperactivity disorder), combined type F90.2 ; Generalized anxiety disorder F41.1 and Persistent depressive disorder F34.1 [facility] [address] [place] [address] 93082- 1994 Nov, Acute pain of left shoulder M25.512 ; Generalized anxiety disorder F41.1 ; Chronic pain syndrome G89.4 ; Hyperinsulinemia E16.1 ; Pain of left foot M79.672 and Pain in right foot M79.671 [address], [place] [address]- 0084 Oct, ADHD (attention deficit hyperactivity disorder), combined type F90.2 ; Generalized anxiety disorder F41.1 and Dysthymic disorder F34.1 [address], [place] [address]- 9081 Sep, [address] [address] [address]- 8387 Sep, [place] [id number] [place] [address] 57580- 6806 Sep, Routine gynecological examination V72.31 ; Cervical cancer screening Z12.4 ; Breast cancer screening Z12.39 ; Colon cancer screening Z12.11 ; Hypokalemia E87.6 ; Herpes simplex type 1 infection B00.9 and Abscess of right axilla L02.411 [place] [address] [address]- 9151 Sep, [place] [id number] [place] [address] 98051- 7585 Sep, ADHD (attention deficit hyperactivity disorder), combined type F90.2 ; Generalized anxiety disorder F41.1 and Dysthymic disorder F34.1 [address] [address]- 3730 Aug, [address] [address] [address]- 1558 Aug, [address] [address] [address]- 5083 Aug, Generalized anxiety disorder F41.1 [address] [address] [place] [address] 61607- 3770 Aug, ADHD (attention deficit hyperactivity disorder), combined type F90.2 ; Generalized anxiety disorder F41.1 and Dysthymic disorder F34.1 [address], [place] [address]- 0196 Jul, Chronic pain syndrome G89.4 ; Hypertension I10 ; Hypokalemia E87.6 ; Asthma J45.909 and Nausea R11.0 [place] [id number] [place] [address] 18495- 0708 Jul, [address] [address] 09180- 5340 Jul, Asthma J45.909 [address] 18861- 2093 Jul, ADHD (attention deficit hyperactivity disorder), combined type F90.2 ; Generalized anxiety disorder F41.1 and Dysthymic disorder F34.1 [address] [id number] [place] [address] 17510- 0877 Jul, [address] 85234- 7765 Jul, Hypertension I10 ; Arteriosclerotic coronary artery disease I25.10 ; Mixed hyperlipidemia E78.2 ; 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 and Hyperglycemia R73.[address] 16575- 7997 16 Jun, 2016 Hypokalemia E87.6 and Hyperglycemia R73.9 [id number] [place] [address] 15147- 7376 14 Jun, 2016 [address] [place] 06917- 9933 13 Jun, 2016 Abnormal kidney function N28.9 [place] [id number] [place] [address] 87918- 5674 09 Jun, [address] 40092- 0822 Jun, ADHD (attention deficit hyperactivity disorder), combined type F90.2 ; Generalized anxiety disorder F41.1 and Dysthymic disorder F34.1 [id number] [address]- 4040 Jun, Generalized anxiety disorder F41.1 and Dysthymic disorder F34.1 [address] [address] 31010- 5628 Jun, Hypokalemia E87.6 [address] [address] 93935- 6722 May, Hypokalemia E87.6 ; Vertigo R42 and Hyperinsulinemia E16.1 [address] 56239- 3560 May, [address] [address] 19924- 7104 May, Abnormal kidney function N28.9 ; Hyperinsulinemia E16.1 and Nausea R11.0 [address] 56230- 3769 May, Hypokalemia E87.6 ; Nausea R11.0 ; Epigastric pain R10.13 ; Dehydration E86.0 ; Diaphoresis R61 and Right arm pain M79.601 [address] 44597- 7656 May, [address] [address] 21651- 1035 May, Hypokalemia E87.6 [address] [address] 48752- 5446 May, Hypokalemia E87.6 [address] 48888- 0180 Apr, [address] [address] 82913- 9695 Apr, ADHD (attention deficit hyperactivity disorder), combined type F90.2 ; Generalized anxiety disorder F41.1 and Dysthymic disorder F34.1 [place] [id number] [place] [address] 94858- 2274 Apr, Right arm pain M79.601 and Hyperinsulinemia E16.1 [address] [id number] [place] [address] 78918- 0793 Mar, [address] [id number] [place] [address] 03217- 5629 Mar, [address] [id number] [place] [address] 15415- 0726 Mar, Hyperinsulinemia E16.1 ; Hyperlipidemia, unspecified hyperlipidemia type E78.5 ; Central venous catheter in place Z78.9 ; Generalized anxiety disorder F41.1 and Urinary tract infection, site not specified N39.0 [address] [id number] [place] [address] 32704- 7519 Mar, ADHD (attention deficit hyperactivity disorder), combined type F90.2 ; Generalized anxiety disorder F41.1 and Dysthymic disorder F34.1 [address] [id number] [place] [address] 62590- 4477 February, ADHD (attention deficit hyperactivity disorder), combined type F90.2 ; Generalized anxiety disorder F41.1 and Dysthymic disorder F34.1 [address] [place] [place] [address] 97261- 4644 February, [place] [id number] [place] [address] 13854- 6606 February, [address] [id number] [place] [address] 19940- 0834 February, Hypertension I10 and Weight gain R63.5 [address] [id number] [place] [address] 38590- 0721 February, Major depressive disorder, recurrent, moderate F33.1 and Generalized anxiety disorder F41.1 [address] [id number] [place] [address] 59603- 7064 February, ADHD (attention deficit hyperactivity disorder), combined type F90.2 ; Generalized anxiety disorder F41.1 and Dysthymic disorder F34.1 [facility] [address], [place] [address]- 1536 February, [facility] [address] [address]- 5777 February, Asthma J45.909 ; Weight gain R63.5 ; Hypertension I10 ; Rheumatoid arthritis M06.9 and Chronic pain syndrome G89.4 [facility] [address] [address]- 1448 Jan, ADHD (attention deficit hyperactivity disorder), combined type F90.2 ; Generalized anxiety disorder F41.1 and Dysthymic disorder F34.1 [facility] [address], [place] [address]- 3810 Dec, ADHD (attention deficit hyperactivity disorder), combined type F90.2 ; Generalized anxiety disorder F41.1 and Dysthymic disorder F34.1 [facility] [address], [place] [address]- 8792 Dec, [facility] [id number] [place] [address] 05412- 9814 Nov, [facility] [address], [place] [address]- 3024 Nov, [facility] [address], [place] [address]- 7598 Nov, [facility] [address], [place] [address]- 9188 Nov, [facility] [address] 4813 Oct, [facility] [address], [place] [address]- 7007 Oct, [facility] [address] [place] [address] 24957- 0388 Oct, [facility] [address], [place] [address]- 7561 Sep, [facility] [id number] [place] [address] 48776- 9707 Sep, [facility] [id number] [place] [address] 89353- 5409 Sep, Agoraphobia with panic disorder F40.01 ; Attention-deficit hyperactivity disorder, combined type F90.2 and Dysthymic disorder F34.1 [facility] [id number] [place] [address] 22969- 4851 Aug, [facility] [id number] [place] [address] 82350- 6731 Aug, [facility] [id number] [place] [address] 65698- 3909 Aug, [facility] [id number] [place] [address] 74409- 7051 Aug, Dysthymic disorder F34.1 ; Generalized anxiety disorder F41.1 and ADHD (attention deficit hyperactivity disorder), combined type F90.2 [facility] [address] [place] [address] 78366- 8937 Aug, ADHD (attention deficit hyperactivity disorder), combined type F90.2 ; Generalized anxiety disorder F41.1 and Dysthymic disorder F34.1 [facility] [address] [place] [address] 77021- 3099 Jul, Urinary tract infection, site not specified N39.0 ; Hypotension, unspecified I95.9 and Breast cancer screening Z12.39 [facility] [id number] [place] [address] 54141- 4808 Jul, [facility] [id number] [place] [address] 26261- 7462 Jul, [facility] [id number] [place] [address] 17266- 9152 Jul, Urinary tract infection, site not specified N39.0 ; Nausea R11.0 ; Gastroenteritis K52.9 ; Renal failure N19 and Other hypotension I95.89 [facility] [address] [place] [address] 51684- 3992 Jul, [facility] [id number] [place] [address] 73581- 8096 Jul, [facility] [id number] [place] [address] 87222- 8542 Jul, [facility] [id number] [place] [address] 61481- 0240 Jun, [place] [id number] [place] [address] 06906- 3053 Jun, Major depression in partial remission 296.25 ; Generalized anxiety disorder 300.02 and ADHD, predominantly inattentive type 314.01 [place] [id number] [place] [address] 02542- 7364 May, [address] [id number] [place] [address] 93690- 3689 Apr, Major depressive disorder, recurrent episode, severe, without mention of psychotic behavior 296.33 ; Agoraphobia with panic disorder 300.21 and Generalized anxiety disorder 300.02 [place] [id number] [place] [address] 91045- 3871 Apr, ADHD (attention deficit hyperactivity disorder), combined type 314.01 ; Generalized anxiety disorder 300.02 and Dysthymic disorder 300.4 [address] [id number] [place] [address] 69976- 8319 Apr, CAD (coronary artery disease) 414.00 ; HTN (hypertension) 401.9 and Tobacco use 305.1 [place] [id number] [place] [address] 59222- 0096 Apr, [facility] [address] 60145- 0770 Mar, ADHD (attention deficit hyperactivity disorder), combined type 314.01 ; Generalized anxiety disorder 300.02 ; Dysthymic disorder 300.4 ; No condition on [place] II V71.09 ; Rheumatoid arthritis 714.0 ; Incontinence 788.30 ; Irritable bowel syndrome 564.1 ; Osteoporosis 733.00 and Chronic pain 338.29 [facility] [id number] [place] [address] 13814- 2033 Mar, Agoraphobia with panic disorder 300.21 and Major depressive disorder, recurrent episode, moderate 296.32 [facility] [address] 17479- 7421 Mar, [facility] [id number] [place] [address] 09833- 5665 February, [facility] [id number] [place] [address] 21565- 7725 February, Agoraphobia with panic disorder 300.21 and Major depressive disorder, recurrent episode, moderate 296.32 [facility] [id number] [place] [address] 64672- 5240 February, [facility] [id number] [place] [address] 00167- 4058 Jan, [facility] [id number] [place] [address] 98484- 6621 Jan, [facility] [id number] [place] [address] 16489- 3023 Dec, [facility] [id number] [place] [address] 90973- 9602 Dec, [facility] [id number] [place] [address] 10238- 8252 Dec, [facility] [id number] [place] [address] 58540- 5389 Dec, [facility] [address] 34959- 8936 Dec, [facility] [place] [facility] [address] [id number] [place] [address]- 3525 Dec, [facility] [place] [facility] [address] [id number] [place] [address]- 4666 Nov, 2014 [facility] [place] [facility] [address] [id number] [place] [address]- 0916 Nov, 2014 [facility] [place] [facility] [address] [id number] [place] [address]- 5811 Nov, 2014 [facility] [place] [facility] [address] [id number] [place] [address]- 5586 Nov, 2014 [facility] [place] [facility] [address] [id number] [place] [address]- 8286 Nov, [facility] [place] [facility] [address] [facility] [id number] [place] [address]- 3440 Nov, 2014 [facility] [place] [facility] [address] [id number] [place] [address]- 8933 Nov, [facility] [place] [facility] [address] [id number] [place] [address]- 0896 Nov, [facility] [place] [facility] [address] [facility] [id number] [place] [address] Oct, [facility] [place] [facility] [address] [facility] [id number] [place] [address] Oct, [facility] [place] [facility] [address] [id number], [place] [address] Oct, [facility] [place] [facility] [address] [id number] [place] [address] Oct, [facility] [place] [facility] [address] [facility] [id number] [place] [address] Oct, [facility] [place] [facility] [address] [facility] [id number], [place] [address] Oct, [facility] [place] [facility] [address] [id number] [place] [address] Sep, [facility] [place] [facility] [address] [id number] [place] [address] Sep, [facility] [place] [facility] [address] [id number] [place] [address] Sep, [facility] [place] [facility] [address] [id number] [place] [address] Sep, [facility] [place] [facility] [address] [id number] [place] [address] Sep, [facility] [place] [facility] [address] [id number] [place] [address] Sep, [facility] [place] [facility] [address] [id number] [place] [address] Sep, [facility] [place] [facility] [address] [id number] [place] [address] Aug, [facility] [place] [facility] [address] [id number] [place] [address] Aug, [facility] [place] [facility] [address] [id number] [place] [address] Aug, [facility] [place] [facility] [address] [id number] [place] [address] Aug, [facility] [place] [facility] [address] [id number] [place] [address] Aug, [facility] [place] [facility] [address] [id number] [place] [address] 18 Aug, 2014 [facility] [place] [facility] [address] [id number] [place] [address] Jul, [facility] [place] [facility] [address] [id number] [place] [address] 17 Jul, 2014 [facility] [place] [facility] [address] [id number] [place] [address] Jul, [facility] [place] [facility] [address] [id number] [place] [address]697 Jul, [facility] [place] [facility] [address] [id number] [place] [address] Jul, [facility] [place] [facility] [address] [id number] [place] [address] 48[address] Jul, [facility] [place] [facility] [address] [id number] [place] [address] Jun, [facility] [place] [facility] [address] [id number] [place] [address]- 45[address] Jun, [facility] [place] [facility] [address] [id number] [place] [address] 65[address] May, [facility] [place] [facility] [address] [id number] [place] [address] 4275 May, [facility] [place] [facility] [address] [id number] [place] [address] 8104 Apr, [facility] [place] [facility] [address] [id number] [place] [address]- 1134 Apr, [facility] [place] [facility] [address] [id number] [place] [address] 0495 Apr, [facility] [place] [facility] [address] [id number] [place] [address]- 7726 Apr, [facility] [place] [facility] [address] [id number], [place] [address] Mar, [facility] [place] [facility] [address] [id number] [place] [address] 345[address] Mar, [facility] [place] [facility] [address] [id number] [place] [address] 09[address] Mar, [facility] [place] [facility] [address] [id number] [place] [address] 3628 Mar, [facility] [place] [facility] [address] [id number] [place] [address] February, [facility] [address] [id number] [place] [address] 89[address] February, [facility] [address] [id number] [place] [address] 4581 February, [facility] [address] [id number] [place] [address] February, [facility] [address] [id number] [place] [address] 9564 February, [facility] [address] [id number] [place] [address] 7630 February, [facility] [address] [id number] [place] [address] Jan, [facility] [address] [id number] [place] [address] 1932 Jan, [facility] [address] [id number] [place] [address] Dec, [facility] [address] [id number] [place] [address] 9466 Dec, [facility] [address] [id number] [place] [address] 5674 Nov, [facility] [place] [facility] [address] [id number] [place] [address] 3972 Nov, [facility] [address] [id number] [place] [address] 8197 Oct, [facility] [place] [facility] [address] [id number] [place] [address] Oct, [facility] [place] [facility] [address] [id number] [place] [address] 6217 Oct, [facility] [place] [facility] [address] [id number] [place] [address] 8053 Oct, [facility] [address] [id number] [place] [address] Sep, [facility] [place] [facility] [address] [id number] [place] [address]- 6093 Sep, [facility] [place] [facility] [address] [id number] [place] [address]- 6274 Sep, [facility] [place] [facility] [address] [id number] [place] [address]- 9635 Sep, [facility] [place] [facility] [address] [id number] [place] [address]- 1333 Sep, [facility] [place] [facility] [address] [id number] [place] [address]- 6656 Sep, [facility] [place] [facility] [address] [id number] [place] [address]- 9665 Sep, [facility] [place] [facility] [address] [id number] [place] [address]- 8627 Sep, [facility] [place] [facility] [address] [id number] [place] [address]- 8213 Aug, [facility] [place] [facility] [address] [id number] [place] [address]- 5640 Aug, [facility] [place] [facility] [address] [id number], [place] [address]- [address] Aug, [facility] [place] [facility] [address] [id number], [place] [address]- 4485 Aug, [facility] [place] [facility] [address] [id number] [place] [address]- 2344 Aug, [facility] [place] [facility] [address] [id number] [place] [address]- 5828 Aug, [facility] [place] [facility] [address] [id number], [place] [address] Aug, [facility] [place] [facility] [address] [id number] [place] [address] 2546 Aug, [facility] [address] [id number] [place] [address]- 8926 Aug, [facility] [address] [id number] [place] [address]- 6086 Jul, [facility] [address] [id number] [place] [address] 2546 Jun, [facility] [address] [id number] [place] [address] 2544 May, [facility] [address] [id number] [place] [address]- 1507 May, [facility] [address] [id number] [place] [address]- 7106 May, [facility] [address] [id number] [place] [address]- 6734 Apr, [facility] [address] [id number] [place] [address] 4021 Mar, [facility] [address] [id number] [place] [address]- 8774 February, [facility] [address] [id number] [place] [address]- 0655 Oct, [facility] [address] [id number] [place] [address]- 6128 Oct, [facility] [place] [facility] [address] [id number], [place] [address] 1680 Oct, [facility] [place] [facility] [address] [id number] [place] [address]- 5968 Oct, [facility] [place] [facility] [address] [id number] [place] [address]- 4400 Oct, [facility] [place] [facility] [address] [id number], [place] [address]- 5005 Oct, [facility] [place] [facility] [address] [id number] [place] [address]- 8077 Sep, [facility] [place] [facility] [address] [id number] [place] [address] Sep, [facility] [place] [facility] [address] [id number] [place] [address]- 8196 Aug, [facility] [place] [facility] [address] [id number] [place] [address]- 3387 Aug, [facility] [place] [facility] [address] [id number] [place] [address]- 7120 Jul, [facility] [place] [facility] [address] [id number] [place] [address]- 2175 Jul, [facility] [place] [facility] [address] [id number] [place] [address]- 8093 Jul, [facility] [place] [facility] [address] [id number] [place] [address]- 5591 Jul, [facility] [place] [facility] [address] [id number] [place] [address]- 9293 Jul, [facility] [place] [facility] [address] [id number] [place] [address]- 7915 Jul, [facility] [place] [facility] [address] [id number] [place] [address]- 0823 Jul, [facility] [place] [facility] [address] [id number] [place] [address]- 2883 Jul, [facility] [place] [facility] [address] [id number] [place] [address]- 7696 Jun, [facility] [place] [facility] [address] [id number] [place] [address]- 5346 Jun, [facility] [place] [facility] [address] [id number] [place] [address]- 9802 May, [facility] [place] [facility] [address] [id number] [place] [address]- 0121 Apr, [facility] [place] [facility] [address] [id number] [place] [address]- 4618 Mar, [facility] [place] [facility] [address] [id number] [place] [address]- 5220 Mar, [facility] [place] [facility] [address] [id number] [place] [address]- 1757 Mar, [facility] [place] [facility] [address] [id number] [place] [address]- 9304 Mar, [facility] [place] [facility] [address] [id number] [place] [address]- 7881 Jan, [facility] [place] [facility] [address] [id number] [place] [address]- 0797 Nov, [facility] [place] [facility] [address] [id number] [place] [address]- 9798 Nov, [facility] [place] [facility] [address] [id number] [place] [address]- 0582 Nov, [facility] [place] [facility] [address] [id number] [place] [address]- 4197 Oct, [facility] [place] [facility] [address] [id number] [place] [address]- 8743 Sep, [facility] [place] [facility] [address] [id number] [place] [address]- 8568 Sep, [facility] [place] [facility] [address] [id number] [place] [address]- 8775 Aug, [facility] [place] [facility] [address] [id number] [place] [address]- 2143 Aug, [facility] [place] [facility] [address] [id number] [place] [address]- 4016 Aug, [facility] [place] [facility] [address] [id number] [place] [address]- 9283 Aug, [facility] [place] [facility] [address] [id number], [place] [address] Jul, [facility] [address] [id number], [place] [address] May, [facility] [address], [place] [address] 137[address] Jan, [facility] [address], [place] [address]- [address] Nov, [facility] [address], [place] [address]- 8976 Apr, [facility] [id number] [place] [address] 67[address] Dec, [facility] [address], [place] [address]- [address]157 Nov, IMMUNIZATIONS No Known Immunizations SOCIAL HISTORY Never Assessed REASON FOR VISIT per lab results PLAN OF CARE VITAL SIGNS MEDICATIONS Medication Instructions Dosage Frequency Start Date End Date Duration Status Lipitor 20 mg Orally Once a day 1 tablet 24h Apr, 30 day(s) Active RESULTS No Results PROCEDURES No Known procedures INSTRUCTIONS MEDICATIONS ADMINISTERED No Known Medications MEDICAL (GENERAL) HISTORY Type Description Date Medical History Cardiovascular inrejyfm-XYW-Bdyidgct, 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 Mendoza Medical History Stress test 03/07/13-Dr. Kelly Dietrich normal Medical History Hypertension Medical History Asthma Medical History Gastrointestinal Disorder--IBS, GERD, Hx of fatty liver Medical History Hernia 1979 Medical History Cervical dysplasia 02/16-Pap [facility]/[place]-mild dysplasia Medical History Hyperlipidemia Medical History Rheumatoid [...] Kidney injury 07/10/15-07/11/2015 Hospitalization History Symptomatic Hypokalemia/Nause-[facility] 05/13/16 Hospitalization History Stroke 05/03/2017 Hospitalization History stroke 08/24/2017--09/01/2017
--- OUTSIDE RECORDS SUMMARY | 2018-06-12 16:05 | XMS REPORT ---
Author Author LYNDSAY RASHEED Organization [facility] Address [address] [place] [address] Care Team Providers Care Story Teller Name Role Phone LYNDSAY RASHEED Unavailable PROBLEMS Type Condition ICD9-CM Code [id number] Code Onset Dates Condition Status SNOMED Code Problem ADHD (attention deficit hyperactivity disorder), combined type F90.2 Active 20957453 Problem 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 (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 Active 211571155 Problem Generalized anxiety disorder F41.1 Active 07780986 Problem Cerebrovascular accident (CVA), unspecified mechanism I63.9 Active 273926271 Problem Asthma J45.909 Active 248339302 Problem Dysthymic disorder F34.1 Active 27431144 Problem Rheumatoid arthritis involving multiple sites, unspecified rheumatoid factor presence M06.9 Active 134600694 Problem Sleep apnea in adult G47.30 Active 68859291 Problem Seasonal allergies J30.2 Active 743490354 Problem Mild episode of recurrent major depressive disorder F33.0 Active 485280086 Problem Rheumatoid arthritis M06.9 Active 29841132 Problem Chronic pain syndrome G89.4 Active 260880678 Problem Hypertension I10 Active 31613174 Problem Anxiety F41.9 Active 74445885 Problem Gastroesophageal reflux disease with esophagitis K21.0 Active 694084983 Problem Panic attacks F41.0 Active 573656964 Problem Irritable bowel syndrome with diarrhea K58.0 Active 147447044 Problem Mixed hyperlipidemia E78.2 Active 894458207 Problem Hyperinsulinemia E16.1 Active 56686391 Problem Weight gain R63.5 Active 1478966 Problem Arteriosclerotic coronary artery disease I25.10 Active 39246414 Problem Chronic obstructive pulmonary disease, unspecified J44.9 Active [id number] Problem Obstructive sleep apnea G47.33 Active 64775033 Problem Neuropathy G62.9 Active 057807333 Problem Other insomnia G47.09 Active 886861121 ALLERGIES No Information ENCOUNTERS Encounter Location Date Diagnosis [facility] [id number] [place] [address] 32107- 5662 Mar, [facility] [id number] [place] [address] 66037- 5318 February, Generalized anxiety disorder F41.1 [facility] [id number] [place] [address] 54369 -8114 February, Cough R05 and Seasonal allergies J30.2 [facility] [id number] [place] [address] 23392- 4945 February, Generalized anxiety disorder F41.1 and Mild episode of recurrent major depressive disorder F33.0 [facility] [id number] [place] [address] 88230- 1794 February, 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 (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 ; Anxiety F41.9 ; Panic attacks F41.0 and Irritable bowel syndrome with diarrhea K58.0 [facility] [id number] [place] [address] 88500- 9494 February, [facility] [id number] [place] [address] 48542- 4460 Jan, Mixed hyperlipidemia E78.2 [facility] [id number] [place] [address] 18817- 9883 Jan, [facility] [id number] [place] [address] 50119- 2490 Jan, [facility] [id number] [place] [address] 39255- 3003 Jan, [facility] [id number] [place] [address] 42604- 0778 Jan, [facility] [id number] [place] [address] 42466- 0888 Dec, [facility] [id number] [place] [address] 45946- 4307 Dec, [facility] [id number] [place] [address] 59537- 2524 Dec, [facility] [address] 65056- 3060 Nov, Dysthymic disorder F34.1 [facility] [address] 81753- 7501 Oct, [facility] [address] 44991- 2841 Oct, [facility] [address] 67775- 4974 Oct, [facility] [address] 38560- 3544 Oct, Diarrhea, unspecified type R19.7 and Dysuria R30.0 [place] [address] 57979- 7799 Oct, [facility] [id number] [place] [address] 42213- 7049 Sep, [place] [address] 36623- 5197 Sep, [place] [id number] [place] [address] 89744- 9593 Sep, Anxiety F41.9 [place] [address] 11087- 3260 Sep, Cerebrovascular accident (CVA), unspecified mechanism I63.9 ; Mixed hyperlipidemia E78.2 ; Gastroesophageal reflux disease with esophagitis K21.0 and Anxiety F41.9 [place] [id number] [place] [address] 17825- 4530 Sep, [facility] [id number] [place] [address] 43737- 6503 Aug, Chronic obstructive pulmonary disease, unspecified J44.9 ; Asthma J45.909 ; Nausea R11.0 ; Dysthymic disorder F34.1 ; Cerebrovascular accident (CVA), unspecified mechanism I63.9 and Rheumatoid arthritis M06.9 [place] [address] 51363- 7223 Aug, Nausea R11.0 ; Encounter for immunization Z23 ; Sleep apnea in adult G47.30 ; Rheumatoid arthritis involving multiple sites, unspecified rheumatoid factor presence M06.9 ; Generalized anxiety disorder F41.1 ; Dysthymic disorder F34.1 and Asthma J45.909 [place] [address] 96706- 7509 Jul, [place] [address] 12669- 5691 May, ADHD (attention deficit hyperactivity disorder), combined type F90.2 ; Generalized anxiety disorder F41.1 and Persistent depressive disorder F34.1 [place] [address] 65012- 6206 May, Cerebrovascular accident (CVA), unspecified mechanism I63.9 [place] [address] 81073- 0906 Apr, Mixed hyperlipidemia E78.2 and Cerebrovascular accident (CVA ), unspecified mechanism I63.9 [place] [address] 37826- 6754 Apr, Generalized anxiety disorder F41.1 [place] [address] 94611- 0235 Apr, Bronchitis J40 and Tobacco use Z72.[address] 10185- 4080 Apr, Mixed hyperlipidemia E78.2 [place] [address] 65055- 6043 Apr, 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 (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 [place] [address] 42340- 0564 Apr, [facility] [address] [place] [address] 86792- 4821 Apr, Generalized anxiety disorder F41.1 [facility] [id number] [place] [address] 20812- 8520 Apr, Obstructive sleep apnea G47.33 and Hyperinsulinemia E16.1 [facility] [id number] [place] [address] 41110- 4192 Apr, ADHD (attention deficit hyperactivity disorder), combined type F90.2 ; Generalized anxiety disorder F41.1 and Persistent depressive disorder F34.1 [place] [id number] [place] [address] 12413- 1159 Mar, [place] [id number] [place] [address] 26814- 4920 Mar, Generalized anxiety disorder F41.1 [facility] [id number] [place] [address] 13764- 0852 Mar, Tarsal tunnel syndrome of both lower extremities G57.53 [facility] [id number] [place] [address] 17537- 3830 February, [facility] [id number] [place] [address] 04172- 1449 February, [facility] [id number] [place] [address] 30435- 5654 February, Asthma J45.909 [facility] [id number] [place] [address] 90079- 5346 February, Generalized anxiety disorder F41.1 [facility] [id number] [place] [address] 55099- 3417 February, Hypoxemia R09.02 ; Hyperglycemia R73.9 ; Rheumatoid arthritis M06.9 and Generalized anxiety disorder F41.1 [facility] [id number] [place] [address] 00192- 8939 February, [facility] [id number] [place] [address] 28278- 6905 Jan, Chronic obstructive pulmonary disease, unspecified J44.9 [facility] [id number] [place] [address] 57134- 3021 Jan, Chronic pain syndrome G89.4 [place] [address] 26721- 7050 Jan, Hypoxemia R09.02 [place] [address] 37044- 8646 Jan, [place] [address] 55004- 7692 Jan, Chronic obstructive pulmonary disease, unspecified J44.9 ; Hypoxemia R09.02 ; Other insomnia G47.09 and Left anterior shoulder pain M25.512 [place] [address] 93501- 4908 Jan, Numbness in feet R20.0 and Neuropathy G62.9 [place] [id number] [place] [address] 80233- 3450 Jan, [place] [id number] [place] [address] 68079- 3933 Dec, Acute pain of left shoulder M25.512 [place] [id number] [place] [address] 02369- 1835 Dec, Acute pain of left shoulder M25.512 [place] [id number] [place] [address] 49117- 0490 Dec, Generalized anxiety disorder F41.1 [place] [id number] [place] [address] 39890- 3731 Dec, Generalized anxiety disorder F41.1 [place] [id number] [place] [address] 04681- 8288 Nov, ADHD (attention deficit hyperactivity disorder), combined type F90.2 ; Generalized anxiety disorder F41.1 and Persistent depressive disorder F34.1 [facility] [address] [place] [address] 51185- 7161 Nov, Acute pain of left shoulder M25.512 [facility] [id number] [place] [address] 92978- 5807 Nov, ADHD (attention deficit hyperactivity disorder), combined type F90.2 ; Generalized anxiety disorder F41.1 and Persistent depressive disorder F34.1 [facility] [id number] [place] [address] 46932- 8791 Nov, Chronic pain syndrome G89.4 [facility] [address] 56053- 6359 Nov, Chronic pain syndrome G89.4 [facility] [id number] [place] [address] 41503- 3663 Nov, Acute pain of left shoulder M25.512 [facility] [id number] [place] [address] 65494- 5756 Nov, Generalized anxiety disorder F41.1 [facility] [id number] [place] [address] 79622- 9626 Nov, Acute pain of left shoulder M25.512 [facility] [address] [place] [address] 73617- 1545 Nov, ADHD (attention deficit hyperactivity disorder), combined type F90.2 ; Generalized anxiety disorder F41.1 and Persistent depressive disorder F34.1 [facility] [address] [place] [address] 77717- 3653 Nov, Acute pain of left shoulder M25.512 ; Generalized anxiety disorder F41.1 ; Chronic pain syndrome G89.4 ; Hyperinsulinemia E16.1 ; Pain of left foot M79.672 and Pain in right foot M79.671 [facility] [id number] [place] [address] 84972- 3481 Oct, ADHD (attention deficit hyperactivity disorder), combined type F90.2 ; Generalized anxiety disorder F41.1 and Dysthymic disorder F34.1 [place] [id number] [place] [address] 64679- 1246 Sep, [place] [id number] [place] [address] 21032- 6124 Sep, [place] [address] 698105- 0717 Sep, Routine gynecological examination V72.31 ; Cervical cancer screening Z12.4 ; Breast cancer screening Z12.39 ; Colon cancer screening Z12.11 ; Hypokalemia E87.6 ; Herpes simplex type 1 infection B00.9 and Abscess of right axilla L02.411 [place] [id number] [place] [address] 22120- 5292 Sep, [place] [address] 68217- 4986 Sep, ADHD (attention deficit hyperactivity disorder), combined type F90.2 ; Generalized anxiety disorder F41.1 and Dysthymic disorder F34.1 [place] [id number] [place] [address] 43220- 6444 Aug, [place] [address] [place] [address] 74054- 8565 Aug, [place] [id number] [place] [address] 27208- 8248 Aug, Generalized anxiety disorder F41.1 [place] [id number] [place] [address] 98282- 7286 Aug, ADHD (attention deficit hyperactivity disorder), combined type F90.2 ; Generalized anxiety disorder F41.1 and Dysthymic disorder F34.1 [place] [address] [place] [address] 35374- 2709 Jul, Chronic pain syndrome G89.4 ; Hypertension I10 ; Hypokalemia E87.6 ; Asthma J45.909 and Nausea R11.0 [place] [address] 53164- 5725 Jul, [place] [address] 19706- 1700 Jul, Asthma J45.909 [place] [address] 81923- 6481 Jul, ADHD (attention deficit hyperactivity disorder), combined type F90.2 ; Generalized anxiety disorder F41.1 and Dysthymic disorder F34.1 [place] [address] 46445- 9230 Jul, [place] [address] 56658- 1680 Jul, Hypertension I10 ; Arteriosclerotic coronary artery disease I25.10 ; Mixed hyperlipidemia E78.2 ; 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 and Hyperglycemia R73.9 [place] [id number] [place] [address] 83041- 7151 16 Jun, 2016 Hypokalemia E87.6 and Hyperglycemia R73.9 [place] [id number] [place] [address] 13079- 8144 14 Jun, 2016 [place] [id number] [place] [address] 20719- 6818 13 Jun, 2016 Abnormal kidney function N28.9 [place] [id number] [place] [address] 78762- 9376 Jun, [place] [address] 63386- 3325 Jun, ADHD (attention deficit hyperactivity disorder), combined type F90.2 ; Generalized anxiety disorder F41.1 and Dysthymic disorder F34.1 [place] [address] 36178- 7683 Jun, Generalized anxiety disorder F41.1 and Dysthymic disorder F34.1 [place] [address] 07294- 5286 Jun, Hypokalemia E87.6 [place] [address] 29343- 3318 May, Hypokalemia E87.6 ; Vertigo R42 and Hyperinsulinemia E16.1 [place] [address] 34503- 4978 May, [place] [address] 08560- 2015 May, Abnormal kidney function N28.9 ; Hyperinsulinemia E16.1 and Nausea R11.0 [place] [address] 95816- 8280 May, Hypokalemia E87.6 ; Nausea R11.0 ; Epigastric pain R10.13 ; Dehydration E86.0 ; Diaphoresis R61 and Right arm pain M79.601 [place] [address] 71486- 5535 May, [place] [address] 10071- 8872 May, Hypokalemia E87.6 [place] [address] 28664- 3028 May, Hypokalemia E87.6 [place] [address] 63913- 1853 Apr, [place] [address] 64819- 4059 Apr, ADHD (attention deficit hyperactivity disorder), combined type F90.2 ; Generalized anxiety disorder F41.1 and Dysthymic disorder F34.1 [place] [address] 63550- 5893 Apr, Right arm pain M79.601 and Hyperinsulinemia E16.1 [place] [id number] [place] [address] 96671- 9419 Mar, [place] [id number] [place] [address] 66032- 4783 Mar, [place] [id number] [place] [address] 54239- 1154 Mar, Hyperinsulinemia E16.1 ; Hyperlipidemia, unspecified hyperlipidemia type E78.5 ; Central venous catheter in place Z78.9 ; Generalized anxiety disorder F41.1 and Urinary tract infection, site not specified N39.0 [place] [id number] [place] [address] 44602- 1222 Mar, ADHD (attention deficit hyperactivity disorder), combined type F90.2 ; Generalized anxiety disorder F41.1 and Dysthymic disorder F34.1 [place] [id number] [place] [address] 35438- 4325 February, ADHD (attention deficit hyperactivity disorder), combined type F90.2 ; Generalized anxiety disorder F41.1 and Dysthymic disorder F34.1 [place] [id number] [place] [address] 86630- 6901 February, [place] [id number] [place] [address] 83682- 9294 February, [place] [id number] [place] [address] 12163- 9006 February, Hypertension I10 and Weight gain R63.5 [place] [id number] [place] [address] 49072- 2911 February, Major depressive disorder, recurrent, moderate F33.1 and Generalized anxiety disorder F41.1 [place] [address] [place] [address] 65278- 9932 February, ADHD (attention deficit hyperactivity disorder), combined type F90.2 ; Generalized anxiety disorder F41.1 and Dysthymic disorder F34.1 [facility] [address] [address]- 1500 February, [facility] [id number] [place] [address] 99631- 4217 February, Asthma J45.909 ; Weight gain R63.5 ; Hypertension I10 ; Rheumatoid arthritis M06.9 and Chronic pain syndrome G89.4 [facility] [id number] [place] [address] 62694- 2542 Jan, ADHD (attention deficit hyperactivity disorder), combined type F90.2 ; Generalized anxiety disorder F41.1 and Dysthymic disorder F34.1 [facility] [id number] [place] [address] 89908- 1287 Dec, ADHD (attention deficit hyperactivity disorder), combined type F90.2 ; Generalized anxiety disorder F41.1 and Dysthymic disorder F34.1 [facility] [id number] [place] [address] 50020- 0245 Dec, [facility] [address] [address]- 4068 Nov, [facility] [id number] [place] [address] 08039- 5197 Nov, [facility] [address] [address]- 2453 Nov, [facility] [address] [place] [address] 75066- 5871 Nov, [facility] [address] [address]- 8331 Oct, [facility] [id number] [place] [address] 31669- 6120 Oct, [facility] [address] [address]- 7664 Oct, [facility] [address] [place] [address]- 5270 Sep, [facility] [address] [address]- 6933 Sep, [facility] [address] [place] [address] 85365- 1889 Sep, Agoraphobia with panic disorder F40.01 ; Attention-deficit hyperactivity disorder, combined type F90.2 and Dysthymic disorder F34.1 [facility] [address] [place] [address] 66586- 4890 Aug, [facility] [id number] [place] [address] 30204- 2627 Aug, [facility] [id number] [place] [address] 75922- 6693 Aug, [facility] [id number] [place] [address] 93701- 2811 Aug, Dysthymic disorder F34.1 ; Generalized anxiety disorder F41.1 and ADHD (attention deficit hyperactivity disorder), combined type F90.2 [facility] [id number] [place] [address] 41341- 4406 Aug, ADHD (attention deficit hyperactivity disorder), combined type F90.2 ; Generalized anxiety disorder F41.1 and Dysthymic disorder F34.1 [facility] [address] [address]- 3660 Jul, Urinary tract infection, site not specified N39.0 ; Hypotension, unspecified I95.9 and Breast cancer screening Z12.39 [facility] [address] [address]- 6456 Jul, [facility] [id number] [place] [address] 60590- 7510 Jul, [facility] [address] [address]- 8091 Jul, Urinary tract infection, site not specified N39.0 ; Nausea R11.0 ; Gastroenteritis K52.9 ; Renal failure N19 and Other hypotension I95.89 [place] [id number] [place] [address] 39753- 8230 Jul, [facility] [id number] [place] [address] 86007- 5142 Jul, [place] [address] 02557- 7635 Jul, [place] [id number] [place] [address] 62658- 9535 Jun, [address] 93024- 1313 Jun, Major depression in partial remission 296.25 ; Generalized anxiety disorder 300.02 and ADHD, predominantly inattentive type 314.01 [place] [id number] [place] [address] 12142- 7528 May, [place] [id number] [place] [address] 21735- 4456 Apr, Major depressive disorder, recurrent episode, severe, without mention of psychotic behavior 296.33 ; Agoraphobia with panic disorder 300.21 and Generalized anxiety disorder 300.02 [place] [id number] [place] [address] 31295- 3937 Apr, ADHD (attention deficit hyperactivity disorder), combined type 314.01 ; Generalized anxiety disorder 300.02 and Dysthymic disorder 300.[address] [place] [address] 97326- 3043 Apr, CAD (coronary artery disease) 414.00 ; HTN (hypertension) 401.9 and Tobacco use 305.1 [address] [place] [address] 35025- 3676 Apr, [place] [id number] [place] [address] 49586- 0479 Mar, ADHD (attention deficit hyperactivity disorder), combined type 314.01 ; Generalized anxiety disorder 300.02 ; Dysthymic disorder 300.4 ; No condition on Miracle II V71.09 ; Rheumatoid arthritis 714.0 ; Incontinence 788.30 ; Irritable bowel syndrome 564.1 ; Osteoporosis 733.00 and Chronic pain 338.29 [facility] [id number] [address]- 3334 16 Mar, 2015 Agoraphobia with panic disorder 300.21 and Major depressive disorder, recurrent episode, moderate 296.32 [facility] [id number] [place] [address] 89060- 9019 Mar, [facility] [id number] [place] [address] 71991- 1992 February, [facility] [id number] [place] [address] 91008- 1756 February, Agoraphobia with panic disorder 300.21 and Major depressive disorder, recurrent episode, moderate 296.32 [facility] [id number] [place] [address] 73395- 1750 February, [facility] [id number] [place] [address] 32394- 8797 Jan, [facility] [id number] [place] [address] [phone] Jan, [facility] [id number] [place] [address] [id number] [id number] Dec, [facility] [id number] [place] [address] [id number] [phone] Dec, [facility] [address] [id number] [place] [address]- 7714 Dec, [facility] [id number] [place] [address]2623- 1067 Dec, [facility] [id number] [place] [address] 68080- 7839 Dec, [facility] [place] [facility] [address] [id number] [place] [address]- 5984 Dec, [facility] [place] [facility] [address] [id number] [place] [address]- 1541 Nov, 2014 [facility] [place] [facility] [address] [id number] [place] [address]- 7986 Nov, 2014 [facility] [place] [facility] [address] [id number] [place] [address]- 2119 Nov, 2014 [facility] [place] [facility] [address] [id number] [place] [address]- 3248 Nov, 2014 [facility] [place] [facility] [address] [id number] [place] [address]- 3716 Nov, 2014 [facility] [place] [facility] [address] [id number] [place] [address]- 1791 Nov, [facility] [place] [facility] [address] [id number] [place] [address]- 0915 Nov, [facility] [place] [facility] [address] [id number] [place] [address]- 3890 Nov, [facility] [place] [facility] [address] [id number] [place] [address]- 2043 Oct, [facility] [place] [facility] [address] [id number] [place] [address]- 3212 Oct, [facility] [place] [facility] [address] [id number], [place] [address] 1008 Oct, [facility] [place] [facility] [address] [id number] [place] [address]- 5880 Oct, [facility] [place] [facility] [address] [id number] [place] [address]- 1637 Oct, [facility] [place] [facility] [address] [id number] [place] [address]- 7698 Oct, [facility] [place] [facility] [address] [id number], [place] [address] 2816 Sep, [facility] [place] [facility] [address] [id number] [place] [address]- 9872 Sep, [facility] [place] [facility] [address] [id number] [place] [address] Sep, [facility] [place] [facility] [address] [id number] [place] [address]- 5886 Sep, [facility] [place] [facility] [address] [id number] [place] [address]- 2986 Sep, [facility] [place] [facility] [address] [id number] [place] [address]- 4000 Sep, [facility] [place] [facility] [address] [id number] [place] [address]- 5364 Sep, [facility] [place] [facility] [address] [id number] [place] [address]- 4944 Aug, [facility] [place] [facility] [address] [id number] [place] [address]- 9571 24 Aug, 2014 [facility] [place] [facility] [address] [id number], [place] [address]- 0320 Aug, [facility] [place] [facility] [address] [id number], [place] [address]- 0940 Aug, [facility] [place] [facility] [address] [id number], [place] [address]- 4446 Aug, [facility] [place] [facility] [address] [id number], [place] [address]- 1093 18 Aug, 2014 [facility] [place] [facility] [address] [id number], [place] [address]- 0034 17 Jul, 2014 [facility] [place] [facility] [address] [id number], [place] [address]- 6572 17 Jul, 2014 [facility] [place] [facility] [address] [id number], [place] [address]- 2659 13 Jul, 2014 [facility] [place] [facility] [address] [id number] [place] [address]- 1236 Jul, [facility] [place] [facility] [address] [id number] [place] [address]- 8321 Jul, [facility] [place] [facility] [address] [id number] [place] [address] 2546 Jul, [facility] [place] [facility] [address] [id number] [place] [address]- 7563 Jun, [facility] [place] [facility] [address] [id number] [place] [address]- 1372 Jun, [facility] [place] [facility] [address] [id number] [place] [address]- 8029 May, [facility] [place] [facility] [address] [id number] [place] [address]- 4926 May, [facility] [place] [facility] [address] [id number] [place] [address]- 1831 Apr, [facility] [place] [facility] [address] [id number] [place] [address]- 2018 Apr, [facility] [place] [facility] [address] [id number] [place] [address]- 5213 Apr, [facility] [place] [facility] [address] [id number] [place] [address]- 4049 Apr, [facility] [place] [facility] [address] [id number] [place] [address]- 9687 Mar, [facility] [place] [facility] [address] [id number] [place] [address]- 4582 Mar, [facility] [place] [facility] [address] [id number] [place] [address]- 0239 Mar, [facility] [place] [facility] [address] [id number] [place] [address]- 2816 Mar, [facility] [place] [facility] [address] [id number] [place] [address]- 9855 February, [facility] [place] [facility] [address] [id number] [place] [address]- 1403 February, [facility] [place] [facility] [address] [id number] [place] [address]- 7228 February, [facility] [place] [facility] [address] [id number] [place] [address]- 1441 February, [facility] [place] [facility] [address] [id number] [place] [address]- 4444 February, [facility] [place] [facility] [address] [id number] [place] [address]- 6435 February, [facility] [place] [facility] [address] [id number] [place] [address]- 9742 Jan, [facility] [place] [facility] [address] [id number] [place] [address]- 0182 Jan, [facility] [place] [facility] [address] [id number] [place] [address]- 7789 Dec, [facility] [place] [facility] [address] [id number] [place] [address]- 0122 Dec, [facility] [place] [facility] [address] [id number] [place] [address]- 0616 Nov, [facility] [place] [facility] [address] [id number] [place] [address]- 0524 Nov, [facility] [place] [facility] [address] [id number], [place] [address] 1931 Oct, [facility] [place] [facility] [address] [id number] [place] [address]- 8578 Oct, [facility] [place] [facility] [address] [id number] [place] [address]- 0832 Oct, [facility] [place] [facility] [address] [id number] [place] [address]- 2451 Oct, [facility] [place] [facility] [address] [id number] [place] [address]- 5770 16 Sep, 2012 [facility] [address] [id number] [place] [address]- 8022 Sep, 2012 [facility] [place] [facility] [address] [id number] [place] [address]- 9346 Sep, 2012 [facility] [address] [id number] [place] [address]- 6136 Sep, 2012 [facility] [place] [facility] [address] [id number] [place] [address]- 5900 Sep, 2012 [facility] [address] [id number] [place] [address]- 1877 Sep, 2012 [facility] [place] [facility] [address] [id number] [place] [address]- 2282 Sep, [facility] [address] [id number] [place] [address]- 0559 Sep, [facility] [place] [facility] [address] [id number] [place] [address]- 7364 Aug, [facility] [place] [facility] [address] [id number] [place] [address]- 6950 Aug, [facility] [place] [facility] [address] [id number] [place] [address]- 6524 Aug, [facility] [place] [facility] [address] [id number] [place] [address]- 3074 Aug, [facility] [place] [facility] [address] [id number], [place] [address]- 2561 Aug, [facility] [place] [facility] [address] [id number] [place] [address]- 0580 Aug, [facility] [place] [facility] [address] [id number] [place] [address]- 9848 Aug, [facility] [place] [facility] [address] [id number], [place] [address]- 8217 Aug, [facility] [place] [facility] [address] [id number] [place] [address]- 2541 Aug, [facility] [address] [id number] [place] [address]- 2546 Jul, [facility] [address] [id number] [place] [address]- 2546 Jun, [facility] [address] [id number] [place] [address]- 2546 May, [facility] [address] [id number] [place] [address]- 4770 May, [facility] [address] [id number] [place] [address]- 2546 May, [facility] [address] [id number] [place] [address]- 3070 Apr, [facility] [address] [id number] [place] [address]- 2903 Mar, [facility] [address] [id number] [place] [address]- 9201 February, [facility] [address] [id number] [place] [address]- 2638 Oct, [facility] [address] [id number] [place] [address]- 6967 Oct, [facility] [address] [id number] [place] [address]- 2361 Oct, [facility] [place] [facility] [address] [id number] [place] [address]- 0595 Oct, [facility] [place] [facility] [address] [id number] [place] [address]- 2546 Oct, [facility] [place] [facility] [address] [id number] [place] [address]- 6730 Oct, [facility] [place] [facility] [address] [id number] [place] [address]- 6153 Sep, [facility] [place] [facility] [address] [id number] [place] [address]- 0660 Sep, [facility] [place] [facility] [address] [id number] [place] [address]- 3722 Aug, [facility] [place] [facility] [address] [id number] [place] [address]- 6956 Aug, [facility] [place] [facility] [address] [id number] [place] [address]- 4313 Jul, [facility] [place] [facility] [address] [id number] [place] 2643 Jul, [facility] [place] [facility] [address] [id number] [place] 2804 Jul, [facility] [place] [facility] [address] [id number] [place] 9979 Jul, [facility] [place] [facility] [address] [id number] [place] [address]- 3455 Jul, [facility] [place] [facility] [address] [id number] [place] 5802 Jul, [facility] [place] [facility] [address] [id number] [place] [address]- 8129 Jul, [facility] [place] [facility] [address] [id number] [place] [address]- 6623 Jul, [facility] [place] [facility] [address] [id number] [place] [address]- 0202 Jun, [facility] [place] [facility] [address] [id number] [place] [address]- 7067 Jun, [facility] [place] [facility] [address] [id number] [place] [address]- 4447 May, [facility] [place] [facility] [address] [id number] [place] [address] 2546 Apr, [facility] [place] [facility] [address] [id number] [place] [address]- 8821 Mar, [facility] [place] [facility] [address] [id number] [place] [address]- 6900 Mar, [facility] [place] [facility] [address] [id number] [place] [address]- 8074 Mar, [facility] [place] [facility] [address] [id number] [place] [address]- 3314 Mar, [facility] [place] [facility] [address] [id number] [place] [address]- 6876 Jan, [facility] [place] [facility] [address] [id number] [place] [address]- 7505 Nov, [facility] [place] [facility] [address] [id number] [place] [address]- 6043 Nov, [facility] [place] [facility] [address] [id number] [place] [address]- 5333 Nov, [facility] [place] [facility] [address] [id number] [place] [address]- 3288 Oct, [facility] [place] [facility] [address] [id number] [place] [address]- 0471 Sep, [facility] [place] [facility] [address] [id number] [place] [address]- 5433 Sep, [facility] [place] [facility] [address] [id number] [place] [address]- 1096 Aug, [facility] [place] [facility] [address] [id number] [place] [address]- 2541 Aug, [facility] [place] [facility] [address] [id number] [place] [address]- 5853 Aug, [facility] [place] [facility] [address] [id number] [place] [address]- 7576 Aug, [facility] [place] [facility] [address] [id number] [place] [address]- 8078 Jul, [facility] [address] [id number] [address]- 7395 May, [facility] [address] [id number] [address]- 5376 Jan, [facility] [address] [id number], [place] [address]- 7236 Nov, [facility] [id number] [address]- 5863 Apr, [facility] [address] [id number], [place] [address]- 8053 Dec, [facility] [address] [id number], [place] [address]- 3973 Nov, IMMUNIZATIONS No Known Immunizations SOCIAL HISTORY Never Assessed REASON FOR VISIT Plavix refill PLAN OF CARE VITAL SIGNS MEDICATIONS Medication Instructions Dosage Frequency Start Date End Date Duration Status Clopidogrel Bisulfate 75 MG Orally Once a day 1 tablet 24h 30 days Active RESULTS No Results PROCEDURES No Known procedures INSTRUCTIONS MEDICATIONS ADMINISTERED No Known Medications MEDICAL (GENERAL) HISTORY Type Description Date Medical History Cardiovascular lwprsxka-DTA-Pwkgpfjf, 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 Mendoza Medical History Stress test 03/07/13-Dr. Kelly Dietrich normal Medical History Hypertension Medical History Asthma Medical History Gastrointestinal Disorder--IBS, GERD, Hx of fatty liver Medical History Hernia 1979 Medical History Cervical dysplasia 02/16-Pap LGSIL/[place]-mild dysplasia Medical History Hyperlipidemia Medical History Rheumatoid [...] Kidney injury 07/10/15-07/11/2015 Hospitalization History Symptomatic Hypokalemia/Nause-[facility] 05/13/16 Hospitalization History Stroke 05/03/2017 Hospitalization History stroke 08/24/2017--09/01/2017
--- OUTSIDE RECORDS SUMMARY | 2018-06-12 16:06 | XMS REPORT ---
Author Author LORI SNOWDEN Organization [facility] Address [address] [place] [address] Care Team Providers Care Mate Chief Name Role Phone LORI SNOWDEN Unavailable PROBLEMS Type Condition ICD9-CM Code [id number] Code Onset Dates Condition Status SNOMED Code Problem ADHD (attention deficit hyperactivity disorder), combined type F90.2 Active 86998304 Problem Other senior living (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 Active 575466690 Problem Generalized anxiety disorder F41.1 Active 24706272 Problem Cerebrovascular accident (CVA), unspecified mechanism I63.9 Active 785429370 Problem Asthma J45.909 Active 563540765 Problem Dysthymic disorder F34.1 Active 98029153 Problem Rheumatoid arthritis involving multiple sites, unspecified rheumatoid factor presence M06.9 Active 493702805 Problem Sleep apnea in adult G47.30 Active 78484937 Problem Seasonal allergies J30.2 Active 187423365 Problem Mild episode of recurrent major depressive disorder F33.0 Active 204188793 Problem Rheumatoid arthritis M06.9 Active 20263326 Problem Chronic pain syndrome G89.4 Active 595728442 Problem Hypertension I10 Active 74167865 Problem Anxiety F41.9 Active 85629798 Problem Gastroesophageal reflux disease with esophagitis K21.0 Active 425687479 Problem Panic attacks F41.0 Active 654392248 Problem Irritable bowel syndrome with diarrhea K58.0 Active 540497827 Problem Mixed hyperlipidemia E78.2 Active 075790460 Problem Hyperinsulinemia E16.1 Active 15160947 Problem Weight gain R63.5 Active 6319034 Problem Arteriosclerotic coronary artery disease I25.10 Active 88793875 Problem Chronic obstructive pulmonary disease, unspecified J44.9 Active [id number] Problem Obstructive sleep apnea G47.33 Active 78984852 Problem Neuropathy G62.9 Active 892000305 Problem Other insomnia G47.09 Active 436901859 ALLERGIES No Information ENCOUNTERS Encounter Location Date Diagnosis [facility] [id number] [place] [address] 19015- 8307 Mar, [facility] [id number] [place] [address] 99393- 5314 February, Generalized anxiety disorder F41.1 [facility] [id number] [place] [address] 10360 -1718 February, Cough R05 and Seasonal allergies J30.2 [facility] [id number] [place] [address] 08718- 8931 February, Generalized anxiety disorder F41.1 and Mild episode of recurrent major depressive disorder F33.0 [facility] [id number] [place] [address] 31791- 1908 February, 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 ; Anxiety F41.9 ; Panic attacks F41.0 and Irritable bowel syndrome with diarrhea K58.0 [facility] [id number] [place] [address] 39992- 8994 February, [facility] [id number] [place] [address] 22822- 2735 Jan, Mixed hyperlipidemia E78.2 [facility] [id number] [place] [address] 07721- 4878 Jan, [facility] [id number] [place] [address] 28271- 3210 Jan, [facility] [id number] [place] [address] 03453- 7921 Jan, [facility] [id number] [place] [address] 55408- 0399 Jan, [facility] [id number] [place] [address] 38547- 2384 Dec, [facility] [id number] [place] [address] 11195- 1789 Dec, [facility] [id number] [place] [address] 61063- 6718 Dec, [facility] [address] 43775- 7276 Nov, Dysthymic disorder F34.1 [facility] [address] 23301- 3839 Oct, [facility] [address] 74154- 7902 Oct, [facility] [address] 47042- 2385 Oct, [place] [address] 80764- 1089 Oct, Diarrhea, unspecified type R19.7 and Dysuria R30.0 [place] [address] 93680- 6868 Oct, [facility] [id number] [place] [address] 21349- 6684 Sep, [place] [address] 82396- 6318 Sep, [place] [address] 97209- 0393 Sep, Anxiety F41.9 [place] [id number] [place] [address] 42793- 2936 Sep, Cerebrovascular accident (CVA), unspecified mechanism I63.9 ; Mixed hyperlipidemia E78.2 ; Gastroesophageal reflux disease with esophagitis K21.0 and Anxiety F41.9 [place] [id number] [place] [address] 03899- 7175 Sep, [facility] [id number] [place] [address] 94589- 3822 Aug, Chronic obstructive pulmonary disease, unspecified J44.9 ; Asthma J45.909 ; Nausea R11.0 ; Dysthymic disorder F34.1 ; Cerebrovascular accident (CVA), unspecified mechanism I63.9 and Rheumatoid arthritis M06.9 [facility] [address] 22922- 1241 Aug, Nausea R11.0 ; Encounter for immunization Z23 ; Sleep apnea in adult G47.30 ; Rheumatoid arthritis involving multiple sites, unspecified rheumatoid factor presence M06.9 ; Generalized anxiety disorder F41.1 ; Dysthymic disorder F34.1 and Asthma J45.909 [place] [address] 61767- 8059 Jul, [place] [address] 41569- 9841 May, ADHD (attention deficit hyperactivity disorder), combined type F90.2 ; Generalized anxiety disorder F41.1 and Persistent depressive disorder F34.1 [place] [address] 17111- 0947 May, Cerebrovascular accident (CVA), unspecified mechanism I63.9 [place] [address] 75419- 8075 Apr, Mixed hyperlipidemia E78.2 and Cerebrovascular accident (CVA ), unspecified mechanism I63.9 [place] [address] 78623- 7471 Apr, Generalized anxiety disorder F41.1 [place] [address] 12535- 4718 Apr, Bronchitis J40 and Tobacco use Z72.0 [place] [address] 43912- 6021 Apr, Mixed hyperlipidemia E78.2 [place] [address] 54500- 6408 Apr, Other senior living (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 [place] [address] [place] [address]- 7640 Apr, [facility] [id number] [place] [address] 55526- 3599 Apr, Generalized anxiety disorder F41.1 [facility] [id number] [place] [address] 87165- 3843 Apr, Obstructive sleep apnea G47.33 and Hyperinsulinemia E16.1 [place] [address] 38332- 1539 Apr, ADHD (attention deficit hyperactivity disorder), combined type F90.2 ; Generalized anxiety disorder F41.1 and Persistent depressive disorder F34.1 [place] [address] 82462- 2648 Mar, [place] [address] 76711- 2270 Mar, Generalized anxiety disorder F41.1 [place] [address] 57696- 6302 Mar, Tarsal tunnel syndrome of both lower extremities G57.53 [place] [address] 49223- 1927 February, [place] [id number] [place] [address] 57369- 5083 February, [place] [id number] [place] [address] 28256- 6746 February, Asthma J45.909 [facility] [id number] [place] [address] 51545- 0455 February, Generalized anxiety disorder F41.1 [place] [id number] [place] [address] 12559- 8494 February, Hypoxemia R09.02 ; Hyperglycemia R73.9 ; Rheumatoid arthritis M06.9 and Generalized anxiety disorder F41.1 [facility] [address] 64225- 9082 February, [facility] [id number] [place] [address] 12099- 0759 Jan, Chronic obstructive pulmonary disease, unspecified J44.9 [facility] [id number] [place] [address] 81195- 5344 Jan, Chronic pain syndrome G89.4 [place] [address] 73717- 8747 Jan, Hypoxemia R09.02 [place] [address] 83350- 2716 Jan, [place] [address] 20884- 3166 Jan, Chronic obstructive pulmonary disease, unspecified J44.9 ; Hypoxemia R09.02 ; Other insomnia G47.09 and Left anterior shoulder pain M25.512 [place] [address] 15254- 2304 Jan, Numbness in feet R20.0 and Neuropathy G62.9 [place] [address] 12438- 1504 Jan, [place] [id number] [place] [address] 36388- 8332 Dec, Acute pain of left shoulder M25.512 [place] [id number] [place] [address] 61857- 8112 Dec, Acute pain of left shoulder M25.512 [place] [id number] [place] [address] 02566- 0879 Dec, Generalized anxiety disorder F41.1 [place] [address] 91584- 4254 Dec, Generalized anxiety disorder F41.1 [place] [id number] [place] [address] 45218- 2679 27 Feb, 2017 ADHD (attention deficit hyperactivity disorder), combined type F90.2 ; Generalized anxiety disorder F41.1 and Persistent depressive disorder F34.1 [facility] [id number] [place] [address] 73708- 0499 Nov, Acute pain of left shoulder M25.512 [facility] [id number] [place] [address] 84242- 3844 20 Nov, 2016 ADHD (attention deficit hyperactivity disorder), combined type F90.2 ; Generalized anxiety disorder F41.1 and Persistent depressive disorder F34.1 [facility] [id number] [place] [address] 00475- 5789 17 Nov, 2016 Chronic pain syndrome G89.4 [facility] [address] 85752- 7650 13 Nov, 2016 Chronic pain syndrome G89.4 [facility] [address] 29858- 2409 08 Nov, 2016 Acute pain of left shoulder M25.512 [facility] [id number] [place] [address] 27628- 1558 Nov, Generalized anxiety disorder F41.1 [facility] [id number] [place] [address] 21257- 1521 Nov, Acute pain of left shoulder M25.512 [facility] [id number] [place] [address] 18899- 9526 Nov, ADHD (attention deficit hyperactivity disorder), combined type F90.2 ; Generalized anxiety disorder F41.1 and Persistent depressive disorder F34.1 [facility] [id number] [place] [address] 73164- 0330 Nov, Acute pain of left shoulder M25.512 ; Generalized anxiety disorder F41.1 ; Chronic pain syndrome G89.4 ; Hyperinsulinemia E16.1 ; Pain of left foot M79.672 and Pain in right foot M79.671 [facility] [address] 69888- 4392 Oct, ADHD (attention deficit hyperactivity disorder), combined type F90.2 ; Generalized anxiety disorder F41.1 and Dysthymic disorder F34.1 [place] [id number] [place] [address] 71606- 3652 Sep, [place] [id number] [place] [address] 28509- 1322 Sep, [place] [address] 37592- 5739 Sep, Routine gynecological examination V72.31 ; Cervical cancer screening Z12.4 ; Breast cancer screening Z12.39 ; Colon cancer screening Z12.11 ; Hypokalemia E87.6 ; Herpes simplex type 1 infection B00.9 and Abscess of right axilla L02.411 [place] [id number] [place] [address] 11411- 4914 Sep, [place] [id number] [place] [address] 27094- 9202 Sep, ADHD (attention deficit hyperactivity disorder), combined type F90.2 ; Generalized anxiety disorder F41.1 and Dysthymic disorder F34.1 [place] [id number] [place] [address] 55001- 2142 Aug, [place] [id number] [place] [address] 89422- 9943 Aug, [place] [id number] [place] [address] 19495- 9874 Aug, Generalized anxiety disorder F41.1 [place] [id number] [place] [address] 24170- 1431 Aug, ADHD (attention deficit hyperactivity disorder), combined type F90.2 ; Generalized anxiety disorder F41.1 and Dysthymic disorder F34.1 [place] [address] [place] [address] 53013- 4009 Jul, Chronic pain syndrome G89.4 ; Hypertension I10 ; Hypokalemia E87.6 ; Asthma J45.909 and Nausea R11.0 [place] [address] 62746- 1142 Jul, [place] [address] 79657- 2927 Jul, Asthma J45.909 [place] [address] 24881- 2355 Jul, ADHD (attention deficit hyperactivity disorder), combined type F90.2 ; Generalized anxiety disorder F41.1 and Dysthymic disorder F34.1 [place] [address] 77512- 6932 Jul, [place] [address] 42020- 0384 Jul, Hypertension I10 ; Arteriosclerotic coronary artery disease I25.10 ; Mixed hyperlipidemia E78.2 ; Other senior living (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 and Hyperglycemia R73.9 [place] [address] 77615- 5748 16 Jun, 2016 Hypokalemia E87.6 and Hyperglycemia R73.9 [place] [address] 70343- 7955 14 Jun, 2016 [place] [address] 13107- 6427 13 Jun, 2016 Abnormal kidney function N28.9 [place] [id number] [place] [address] 90577- 7449 Jun, [place] [address] 38369- 0663 Jun, ADHD (attention deficit hyperactivity disorder), combined type F90.2 ; Generalized anxiety disorder F41.1 and Dysthymic disorder F34.1 [place] [address] 06038- 5962 Jun, Generalized anxiety disorder F41.1 and Dysthymic disorder F34.1 [place] [address] 577864- 1515 Jun, Hypokalemia E87.6 [place] [address] 04226- 7012 May, Hypokalemia E87.6 ; Vertigo R42 and Hyperinsulinemia E16.1 [place] [address] 35215- 5008 May, [place] [address] 47051- 9134 May, Abnormal kidney function N28.9 ; Hyperinsulinemia E16.1 and Nausea R11.0 [place] [address] 74611- 4975 May, Hypokalemia E87.6 ; Nausea R11.0 ; Epigastric pain R10.13 ; Dehydration E86.0 ; Diaphoresis R61 and Right arm pain M79.601 [place] [address] 19884- 5434 May, [place] [address] 31409- 5759 May, Hypokalemia E87.6 [place] [address] 01926- 8124 May, Hypokalemia E87.6 [place] [address] 84262- 4885 Apr, [place] [address] 70850- 6232 Apr, ADHD (attention deficit hyperactivity disorder), combined type F90.2 ; Generalized anxiety disorder F41.1 and Dysthymic disorder F34.1 [place] [address] 16308- 2288 Apr, Right arm pain M79.601 and Hyperinsulinemia E16.1 [place] [id number] [place] [address] 15012- 8673 Mar, [place] [id number] [place] [address] 92485- 7175 Mar, [place] [address] 85672- 5580 Mar, Hyperinsulinemia E16.1 ; Hyperlipidemia, unspecified hyperlipidemia type E78.5 ; Central venous catheter in place Z78.9 ; Generalized anxiety disorder F41.1 and Urinary tract infection, site not specified N39.0 [place] [address] 44468- 3872 Mar, ADHD (attention deficit hyperactivity disorder), combined type F90.2 ; Generalized anxiety disorder F41.1 and Dysthymic disorder F34.1 [place] [address] 70527- 1118 February, ADHD (attention deficit hyperactivity disorder), combined type F90.2 ; Generalized anxiety disorder F41.1 and Dysthymic disorder F34.1 [place] [id number] [place] [address] 34945- 5957 February, [place] [id number] [place] [address] 77130- 2829 February, [place] [address] 09397- 7668 February, Hypertension I10 and Weight gain R63.5 [place] [id number] [place] [address] 88209- 5157 February, Major depressive disorder, recurrent, moderate F33.1 and Generalized anxiety disorder F41.1 [place] [id number] [place] [address] 44899- 4523 February, ADHD (attention deficit hyperactivity disorder), combined type F90.2 ; Generalized anxiety disorder F41.1 and Dysthymic disorder F34.1 [facility] [address] [address]- 5136 February, [facility] [id number] 6374 February, Asthma J45.909 ; Weight gain R63.5 ; Hypertension I10 ; Rheumatoid arthritis M06.9 and Chronic pain syndrome G89.4 [facility] [address] [address]- 9259 Jan, ADHD (attention deficit hyperactivity disorder), combined type F90.2 ; Generalized anxiety disorder F41.1 and Dysthymic disorder F34.1 [facility] [address] [address]- 9585 Dec, ADHD (attention deficit hyperactivity disorder), combined type F90.2 ; Generalized anxiety disorder F41.1 and Dysthymic disorder F34.1 [facility] [address] [address]- 7658 Dec, [facility] [id number] [place] [address]- 2744 Nov, [facility] [id number] [address]- 4084 Nov, [facility] [id number] [place] [address]- 2385 Nov, [facility] [id number] [address]- 7075 Nov, [facility] [id number] [place] [address]- 5685 Oct, [facility] [id number] [address]- 4587 Oct, [facility] [id number] [place] [address]- 4809 Oct, [facility] [id number] [place] [address]- 4855 Sep, [facility] [id number] [address]- 9388 Sep, [facility] [id number] [place] [address]- 4426 Sep, Agoraphobia with panic disorder F40.01 ; Attention-deficit hyperactivity disorder, combined type F90.2 and Dysthymic disorder F34.1 [facility] [address] [place] [address]- 7705 Aug, [facility] [id number] [place] [address] 51237- 7929 Aug, [facility] [id number] [place] [address] 28706- 9173 Aug, [facility] [id number] [address]- 8173 Aug, Dysthymic disorder F34.1 ; Generalized anxiety disorder F41.1 and ADHD (attention deficit hyperactivity disorder), combined type F90.2 [facility] [address] [address]- 4194 Aug, ADHD (attention deficit hyperactivity disorder), combined type F90.2 ; Generalized anxiety disorder F41.1 and Dysthymic disorder F34.1 [facility] [address] [place] [address]- 6088 Jul, Urinary tract infection, site not specified N39.0 ; Hypotension, unspecified I95.9 and Breast cancer screening Z12.39 [facility] [id number] [address]- 0102 Jul, [facility] [id number] [address]- 3568 Jul, [facility] [id number] [address]- 8204 Jul, Urinary tract infection, site not specified N39.0 ; Nausea R11.0 ; Gastroenteritis K52.9 ; Renal failure N19 and Other hypotension I95.89 [place] [id number] [place] [address] 99643- 0781 Jul, [facility] [id number] [place] [address] 54274- 3707 Jul, [facility] [id number] [place] [address] 80305- 6124 Jul, [facility] [id number] [place] [address] 20526- 6315 Jun, [place] [id number] [place] [address] 80395- 5799 Jun, Major depression in partial remission 296.25 ; Generalized anxiety disorder 300.02 and ADHD, predominantly inattentive type 314.01 [place] [id number] [place] [address] 75605- 5786 May, [place] [id number] [place] [address] 37667- 1610 Apr, Major depressive disorder, recurrent episode, severe, without mention of psychotic behavior 296.33 ; Agoraphobia with panic disorder 300.21 and Generalized anxiety disorder 300.02 [place] [id number] [place] [address] 30764- 3636 Apr, ADHD (attention deficit hyperactivity disorder), combined type 314.01 ; Generalized anxiety disorder 300.02 and Dysthymic disorder 300.[id number] [place] [address] 73318- 5355 Apr, CAD (coronary artery disease) 414.00 ; HTN (hypertension) 401.9 and Tobacco use 305.[id number] [place] [address] 51063- 5394 Apr, [place] [id number] [place] [address] 06058- 7410 Mar, ADHD (attention deficit hyperactivity disorder), combined type 314.01 ; Generalized anxiety disorder 300.02 ; Dysthymic disorder 300.4 ; No condition on [employer] V71.09 ; Rheumatoid arthritis 714.0 ; Incontinence 788.30 ; Irritable bowel syndrome 564.1 ; Osteoporosis 733.00 and Chronic pain 338.29 [facility] [id number] [place] [address] 97227- 3344 16 Mar, 2015 Agoraphobia with panic disorder 300.21 and Major depressive disorder, recurrent episode, moderate 296.32 [facility] [id number] [place] [address] [phone] Mar, [facility] [id number] [place] [address] [phone] February, [facility] [id number] [place] [address] [phone] February, Agoraphobia with panic disorder 300.21 and Major depressive disorder, recurrent episode, moderate 296.32 [facility] [id number] [place] [address] [phone] February, [facility] [id number] [place] [address] [phone] Jan, [facility] [id number] [place] [address] [phone] Jan, [facility] [id number] [place] [address] [phone] Dec, [facility] [id number] [place] [address] [phone] Dec, [facility] [id number] [place] [address] [phone] Dec, [facility] [id number] [place] [address] [phone] Dec, [facility] [id number] [place] [address] [phone] Dec, [facility] [address] [id number] [place] [address] Dec, [facility] [place] [facility] [address] [id number] [place] [address] Nov, 2014 [facility] [place] [facility] [address] [id number] [place] [address] Nov, 2014 [facility] [place] [facility] [address] [id number] [place] [address] Nov, 2014 [facility] [place] [facility] [address] [id number] [place] [address] Nov, 2014 [facility] [place] [facility] [address] [id number] [place] [address] 1156 Nov, 2014 [facility] [place] [facility] [address] [id number] [place] [address] Nov, [facility] [place] [facility] [address] [id number] [place] [address] Nov, 2014 [facility] [place] [facility] [address] [id number] [place] [address] Nov, [facility] [place] [facility] [address] [facility] [id number] [place] [address] 4984 Oct, [facility] [place] [facility] [address] [id number] [place] [address]377 Oct, [facility] [place] [facility] [address] [id number], [place] [address] Oct, [facility] [place] [facility] [address] [id number] [place] [address] 9524 Oct, [facility] [place] [facility] [address] [id number] [place] [address] 488[address] Oct, [facility] [place] [facility] [address] [facility] [id number] [place] [address] 3731 Oct, [facility] [place] [facility] [address] [id number] [place] [address] 29 Sep, 2014 [facility] [place] [facility] [address] [id number] [place] [address] 9145 29 Sep, 2014 [facility] [place] [facility] [address] [id number] [place] [address] Sep, [facility] [place] [facility] [address] [facility] [id number] [place] [address] Sep, [facility] [place] [facility] [address] [id number] [place] [address] 43[address] Sep, [facility] [place] [facility] [address] [id number] [place] [address]- 4440 05 Sep, 2014 [facility] [place] [facility] [address] [id number] [place] [address]- 278[address] Sep, [facility] [place] [facility] [address] [id number] [place] [address]- 2929 24 Aug, 2014 [facility] [place] [facility] [address] [id number] [place] [address]- 7366 24 Aug, 2014 [facility] [place] [facility] [address] [id number] [place] [address]- 5731 Aug, [facility] [place] [facility] [address] [facility] [id number] [place] [address]- 1066 Aug, [facility] [place] [facility] [address] [id number] [place] [address]- 4[address] 18 Aug, 2014 [facility] [place] [facility] [address] [facility] [id number][place] [address] 18 Aug, 2014 [facility] [place] [facility] [address] [id number] [place] [address]- [address]376 17 Jul, 2014 [facility] [place] [facility] [address] [facility] [id number] [place] [address]- 0641 17 Jul, 2014 [facility] [place] [facility] [address] [facility] [id number], [place] [address]- 1206 13 Jul, 2014 [facility] [place] [facility] [address] [id number] [place] [address] 65[address] Jul, [facility] [place] [facility] [address] [id number] [place] [address]- 9548 Jul, [facility] [place] [facility] [address] [id number] [place] [address]- 2366 Jul, [facility] [place] [facility] [address] [id number] [place] [address] 8581 Jun, [facility] [place] [facility] [address] [id number] [place] [address] 36[address] Jun, [facility] [place] [facility] [address] [id number] [place] [address] 4736 May, [facility] [place] [facility] [address] [id number] [place] [address]- 6921 May, [facility] [place] [facility] [address] [id number] [place] [address]- 2891 Apr, [facility] [place] [facility] [address] [id number] [place] [address]- 0176 Apr, [facility] [place] [facility] [address] [id number] [place] [address]- 0359 Apr, [facility] [place] [facility] [address] [id number] [place] [address]- 0084 Apr, [facility] [place] [facility] [address] [id number] [place] [address] 1982 Mar, [facility] [place] [facility] [address] [id number] [place] [address]- 9153 Mar, [facility] [place] [facility] [address] [id number] [place] [address]- 3796 Mar, [facility] [place] [facility] [address] [id number] [place] [address]- 0013 Mar, [facility] [place] [facility] [address] [id number] [place] [address]- 8407 February, [facility] [place] [facility] [address] [id number] [place] [address]- 7297 February, [facility] [place] [facility] [address] [id number] [place] [address]- 1231 February, [facility] [place] [facility] [address] [id number] [place] [address]- 8199 February, [facility] [place] [facility] [address] [id number] [place] [address]- 1605 February, [facility] [place] [facility] [address] [id number] [place] [address]- 2293 February, [facility] [place] [facility] [address] [id number] [place] [address]- 9540 Jan, [facility] [place] [facility] [address] [id number] [place] [address]- 4808 Jan, [facility] [place] [facility] [address] [id number] [place] [address]- 5670 Dec, [facility] [place] [facility] [address] [id number] [place] [address]- 8353 Dec, [facility] [place] [facility] [address] [id number] [place] [address] 4909 Nov, [facility] [place] [facility] [address] [id number] [place] [address]- 5496 Nov, [facility] [place] [facility] [address] [id number] [place] [address]- 3665 Oct, [facility] [place] [facility] [address] [id number] [place] [address]- 3399 Oct, [facility] [place] [facility] [address] [id number] [place] [address]- 9182 Oct, [facility] [place] [facility] [address] [id number] [place] [address]- 2687 Oct, [facility] [place] [facility] [address] [id number] [place] [address]- 6490 16 Sep, 2012 [facility] [address] [id number] [place] [address]- 3106 Sep, [facility] [address] [id number] [place] [address]- 7411 Sep, [facility] [address] [id number] [place] [address]- 5906 Sep, 2012 [facility] [address] [id number] [place] [address]- 3801 Sep, [facility] [address] [id number] [place] [address]- 3886 Sep, [facility] [address] [id number] [place] [address]- 3241 Sep, [facility] [address] [id number] [place] [address]- 8459 Sep, [facility] [address] [id number] [place] [address]- 1056 Aug, [facility] [address] [id number] [place] [address]- 0188 Aug, [facility] [address] [id number] [place] [address]- 4548 Aug, [facility] [address] [id number] [place] [address]- 4459 Aug, [facility] [address] [id number] [place] [address]- 2954 Aug, [facility] [place] [facility] [address] [id number] [place] [address]- 5273 Aug, [facility] [address] [id number] [place] [address]- 8417 Aug, [facility] [address] [id number] [place] [address]- 4053 Aug, [facility] [address] [id number] [place] [address]- 3719 Aug, [facility] [place] [facility] [address] [id number] [place] [address]- 2546 Jul, [facility] [place] [facility] [address] [id number] [place] [address]- 4736 Jun, [facility] [place] [facility] [address] [id number] [place] [address]- 2546 May, [facility] [place] [facility] [address] [id number] [place] [address]- 8073 May, [facility] [place] [facility] [address] [id number] [place] [address]- 7206 May, [facility] [place] [facility] [address] [id number] [place] [address]- 2546 Apr, [facility] [place] [facility] [address] [id number] [place] [address]- 3502 Mar, [facility] [place] [facility] [address] [id number] [place] [address]- 2317 February, [facility] [place] [facility] [address] [id number], [place] [address]- 9163 Oct, [facility] [place] [facility] [address] [id number], [place] [address]- 5136 Oct, [facility] [place] [facility] [address] [id number], [place] [address]- 7004 Oct, [facility] [place] [facility] [address] [id number] [place] [address]- 3631 Oct, [facility] [place] [facility] [address] [id number], [place] [address]- 2176 Oct, [facility] [place] [facility] [address] [id number], [place] [address]- 8876 Oct, [facility] [place] [facility] [address] [id number], [place] [address]- 4198 Sep, [facility] [place] [facility] [address] [id number] [place] [address]- 5540 Sep, [facility] [place] [facility] [address] [id number] [place] [address]- 1996 Aug, [facility] [place] [facility] [address] [facility] [id number] [place] [address]- 4767 Aug, [facility] [place] [facility] [address] [id number] [place] [address]- 1088 Jul, [facility] [place] [facility] [address] [id number] [place] [address], [place] [address]- 0729 Jul, [facility] [place] [facility] [address] [id number] [place] [address]- 4158 Jul, [facility] [place] [facility] [id number] [place] [address], [place] [address]- 4906 Jul, [facility] [place] [facility] [address] [id number] [place] [address]- 5431 Jul, [facility] [place] [facility] [address] [id number] [place] [address]- 5046 Jul, [facility] [place] [facility] [address] [facility] [id number] [place] [address]- 8208 Jul, [facility] [place] [facility] [address] [facility] [id number], [place] [address]- 4101 Jul, [facility] [place] [facility] [address] [id number], [place] [address]- 8900 Jun, [facility] [place] [facility] [address] [id number] [place] [address]- 2978 Jun, [facility] [place] [facility] [address] [facility] [id number], [place] [address]- 8378 May, [facility] [place] [facility] [address] [facility] [id number] [place] [address]- 1033 Apr, [facility] [place] [facility] [address] [id number] [place] [address]- 7009 Mar, [facility] [place] [facility] [address] [id number] [place] [address]- 2317 Mar, [facility] [place] [facility] [address] [id number] [place] [address]- 7302 Mar, [facility] [place] [facility] [address] [id number] [place] [address]- 4122 Mar, [facility] [place] [facility] [address] [id number] [place] [address]- 7070 Jan, [facility] [place] [facility] [address] [id number] [place] [address]- 1255 Nov, [facility] [place] [facility] [address] [id number] [place] [address]- 9396 Nov, [facility] [place] [facility] [address] [id number] [place] [address]- 9415 Nov, [facility] [place] [facility] [address] [id number] [place] [address]- 7671 Oct, [facility] [place] [facility] [address] [id number] [place] [address]- 1102 Sep, [facility] [place] [facility] [address] [id number] [place] [address]- 1028 Sep, [facility] [place] [facility] [address] [id number] [place] [address]- 6081 Aug, [facility] [place] [facility] [address] [id number] [place] [address]- 9835 Aug, [facility] [place] [facility] [address] [id number] [place] [address]- 7286 Aug, [facility] [place] [facility] [address] [id number] [place] [address]- 4585 Aug, [facility] [place] [facility] [address] [id number], [place] [address]- 4806 Jul, [facility] [address] [facility] [id number], [place] [address]- 5506 May, [facility] [address] [id number], [place] [address] 2546 Jan, [facility] [address] [id number], [place] [address]- 5276 Nov, [facility] [address] [id number], [place] [address]- 4916 Apr, [facility] [address] [facility] [id number], [place] [address]- 1596 Dec, [facility] [address] [id number], [place] [address]- 2576 Nov, IMMUNIZATIONS No Known Immunizations SOCIAL HISTORY Never Assessed REASON FOR VISIT Refill request PLAN OF CARE VITAL SIGNS MEDICATIONS Unknown Medications RESULTS No Results PROCEDURES No Known procedures INSTRUCTIONS MEDICATIONS ADMINISTERED No Known Medications MEDICAL (GENERAL) HISTORY Type Description Date Medical History Cardiovascular ckvkvjih-KPA-Ecksncjx, 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 Mendoza Medical History Stress test 03/07/13-Dr. Kelly Dietrich normal Medical History Hypertension Medical History Asthma Medical History Gastrointestinal Disorder--IBS, GERD, Hx of fatty liver Medical History Hernia 1978 Medical History Cervical dysplasia 02/16-Pap LGSIL/[place]-mild dysplasia Medical History Hyperlipidemia Medical History Rheumatoid [...]
[2018-06-12 16:07] LABS: ABG PH 7.33 (7.37-7.43); ALLENS TEST YES-POS; INSPIRED O2 2 LITERS; PATIENT TEMP 97.2; VENTILATOR NO
--- OUTSIDE RECORDS SUMMARY | 2018-06-12 16:07 | XMS REPORT ---
Author Author LORI SNOWDEN Organization [facility] Address [address] [place] [address] Care Team Providers Care Juice Standardizer Name Role Phone LORI SNOWDEN Unavailable PROBLEMS Type Condition ICD9-CM Code RNC30-VV Code Onset Dates Condition Status SNOMED Code Problem ADHD (attention deficit hyperactivity disorder), combined type F90.2 Active 57872109 Problem Other senior care (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 Active 281324989 Problem Generalized anxiety disorder F41.1 Active 15038758 Problem Cerebrovascular accident (CVA), unspecified mechanism I63.9 Active 819727263 Problem Asthma J45.909 Active 501296645 Problem Dysthymic disorder F34.1 Active 83938143 Problem Rheumatoid arthritis involving multiple sites, unspecified rheumatoid factor presence M06.9 Active 320786842 Problem Sleep apnea in adult G47.30 Active 18039391 Problem Seasonal allergies J30.2 Active 766030598 Problem Mild episode of recurrent major depressive disorder F33.0 Active 148990764 Problem Rheumatoid arthritis M06.9 Active 66666740 Problem Chronic pain syndrome G89.4 Active 171035568 Problem Hypertension I10 Active 66440022 Problem Anxiety F41.9 Active 87486227 Problem Gastroesophageal reflux disease with esophagitis K21.0 Active 080948233 Problem Panic attacks F41.0 Active 859500051 Problem Irritable bowel syndrome with diarrhea K58.0 Active 305259004 Problem Mixed hyperlipidemia E78.2 Active 901432221 Problem Hyperinsulinemia E16.1 Active 39012203 Problem Weight gain R63.5 Active 0877373 Problem Arteriosclerotic coronary artery disease I25.10 Active 33789077 Problem Chronic obstructive pulmonary disease, unspecified J44.9 Active [id number] Problem Obstructive sleep apnea G47.33 Active 94880907 Problem Neuropathy G62.9 Active 690235849 Problem Other insomnia G47.09 Active 844137366 ALLERGIES No Information ENCOUNTERS Encounter Location Date Diagnosis [facility] [id number] [place] [address] 87199- 2463 Mar, [facility] [id number] [place] [address] 92071- 3122 February, Generalized anxiety disorder F41.1 [facility] [id number] [place] [address] 82056 -1299 February, Cough R05 and Seasonal allergies J30.2 [facility] [id number] [place] [address] 52728- 5555 February, Generalized anxiety disorder F41.1 and Mild episode of recurrent major depressive disorder F33.0 [facility] [id number] [place] [address] 72143- 8082 February, 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 ; Anxiety F41.9 ; Panic attacks F41.0 and Irritable bowel syndrome with diarrhea K58.0 [facility] [id number] [place] [address] 09948- 1182 February, [facility] [id number] [place] [address] 83228- 1871 Jan, Mixed hyperlipidemia E78.2 [facility] [id number] [place] [address] 50191- 5399 Jan, [facility] [id number] [place] [address] 73115- 1263 Jan, [facility] [id number] [place] [address] 10965- 4485 Jan, [facility] [id number] [place] [address] 60410- 0646 Jan, [facility] [id number] [place] [address] 19132- 6064 Dec, [facility] [id number] [place] [address] 96270- 5533 Dec, [facility] [id number] [place] [address] 84832- 8702 Dec, [facility] [address] 03218- 2267 Nov, Dysthymic disorder F34.1 [facility] [address] 33988- 7082 Oct, [facility] [address] 65835- 9853 Oct, [facility] [address] 63479- 0039 Oct, [place] [address] 71626- 4851 Oct, Diarrhea, unspecified type R19.7 and Dysuria R30.0 [facility] [address] 61603- 3735 Oct, [facility] [id number] [place] [address] 62039- 1705 Sep, [place] [address] 63534- 1920 Sep, [place] [address] 63889- 9094 Sep, Anxiety F41.9 [facility] [id number] [place] [address] 96452- 5362 Sep, Cerebrovascular accident (CVA), unspecified mechanism I63.9 ; Mixed hyperlipidemia E78.2 ; Gastroesophageal reflux disease with esophagitis K21.0 and Anxiety F41.9 [facility] [id number] [place] [address] 66183- 0793 Sep, [facility] [id number] [place] [address] 86381- 8231 Aug, Chronic obstructive pulmonary disease, unspecified J44.9 ; Asthma J45.909 ; Nausea R11.0 ; Dysthymic disorder F34.1 ; Cerebrovascular accident (CVA), unspecified mechanism I63.9 and Rheumatoid arthritis M06.9 [facility] [address] 22717- 5732 Aug, Nausea R11.0 ; Encounter for immunization Z23 ; Sleep apnea in adult G47.30 ; Rheumatoid arthritis involving multiple sites, unspecified rheumatoid factor presence M06.9 ; Generalized anxiety disorder F41.1 ; Dysthymic disorder F34.1 and Asthma J45.909 [place] [address] 07404- 5967 Jul, [place] [address] 79378- 7117 May, ADHD (attention deficit hyperactivity disorder), combined type F90.2 ; Generalized anxiety disorder F41.1 and Persistent depressive disorder F34.1 [place] [address] 05196- 7640 May, Cerebrovascular accident (CVA), unspecified mechanism I63.9 [place] [address] 36877- 4635 Apr, Mixed hyperlipidemia E78.2 and Cerebrovascular accident (CVA ), unspecified mechanism I63.9 [place] [address] 04464- 7606 Apr, Generalized anxiety disorder F41.1 [place] [address] 14106- 0380 Apr, Bronchitis J40 and Tobacco use Z72.0 [place] [address] 43941- 1222 Apr, Mixed hyperlipidemia E78.2 [facility] [place] [address] 27629- 3650 Apr, Other senior care (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 [place] [address] [place] [address]- 2872 Apr, [facility] [id number] [place] [address] 05795- 9122 Apr, Generalized anxiety disorder F41.1 [facility] [id number] [place] [address] 09511- 5639 Apr, Obstructive sleep apnea G47.33 and Hyperinsulinemia E16.1 [place] [address] 51654- 6485 Apr, ADHD (attention deficit hyperactivity disorder), combined type F90.2 ; Generalized anxiety disorder F41.1 and Persistent depressive disorder F34.1 [place] [address] 62284- 8181 Mar, [place] [address] 63362- 2955 Mar, Generalized anxiety disorder F41.1 [place] [address] 52556- 9884 Mar, Tarsal tunnel syndrome of both lower extremities G57.53 [place] [address] 98850- 7083 February, [facility] [id number] [place] [address] 99408- 7761 February, [facility] [id number] [place] [address] 75018- 1371 February, Asthma J45.909 [facility] [id number] [place] [address] 04018- 7094 February, Generalized anxiety disorder F41.1 [facility] [id number] [place] [address] 69616- 2541 February, Hypoxemia R09.02 ; Hyperglycemia R73.9 ; Rheumatoid arthritis M06.9 and Generalized anxiety disorder F41.1 [facility] [address] 33340- 1583 February, [facility] [id number] [place] [address] 12729- 7587 Jan, Chronic obstructive pulmonary disease, unspecified J44.9 [facility] [id number] [place] [address] 34400- 7189 Jan, Chronic pain syndrome G89.4 [place] [address] 74338- 0556 Jan, Hypoxemia R09.02 [place] [address] 23385- 6982 Jan, [place] [address] 31564- 3293 Jan, Chronic obstructive pulmonary disease, unspecified J44.9 ; Hypoxemia R09.02 ; Other insomnia G47.09 and Left anterior shoulder pain M25.512 [place] [address] 68296- 8674 Jan, Numbness in feet R20.0 and Neuropathy G62.9 [place] [address] 03013- 8718 Jan, [facility] [id number] [place] [address] 03105- 3685 Dec, Acute pain of left shoulder M25.512 [facility] [id number] [place] [address] 68779- 1485 Dec, Acute pain of left shoulder M25.512 [facility] [id number] [place] [address] 61304- 9310 Dec, Generalized anxiety disorder F41.1 [place] [address] 09796- 6949 Dec, Generalized anxiety disorder F41.1 [facility] [id number] [place] [address] 77314- 5052 27 Feb, 2017 ADHD (attention deficit hyperactivity disorder), combined type F90.2 ; Generalized anxiety disorder F41.1 and Persistent depressive disorder F34.1 [facility] [id number] [place] [address] 14431- 0320 Nov, Acute pain of left shoulder M25.512 [facility] [id number] [place] [address] 03596- 3215 20 Nov, 2016 ADHD (attention deficit hyperactivity disorder), combined type F90.2 ; Generalized anxiety disorder F41.1 and Persistent depressive disorder F34.1 [facility] [id number] [place] [address] 81514- 6517 17 Nov, 2016 Chronic pain syndrome G89.4 [facility] [address] 40019- 9729 13 Nov, 2016 Chronic pain syndrome G89.4 [facility] [address] 97366- 6295 08 Nov, 2016 Acute pain of left shoulder M25.512 [facility] [id number] [place] [address] 02702- 3819 Nov, Generalized anxiety disorder F41.1 [facility] [id number] [place] [address] 98586- 1908 Nov, Acute pain of left shoulder M25.512 [facility] [id number] [place] [address] 44625- 8297 Nov, ADHD (attention deficit hyperactivity disorder), combined type F90.2 ; Generalized anxiety disorder F41.1 and Persistent depressive disorder F34.1 [facility] [id number] [place] [address] 97931- 7638 Nov, Acute pain of left shoulder M25.512 ; Generalized anxiety disorder F41.1 ; Chronic pain syndrome G89.4 ; Hyperinsulinemia E16.1 ; Pain of left foot M79.672 and Pain in right foot M79.671 [facility] [address] 57884- 7291 Oct, ADHD (attention deficit hyperactivity disorder), combined type F90.2 ; Generalized anxiety disorder F41.1 and Dysthymic disorder F34.1 [place] [id number] [place] [address] 29136- 9695 Sep, [place] [id number] [place] [address] 21265- 6874 Sep, [place] [address] 62975- 2076 Sep, Routine gynecological examination V72.31 ; Cervical cancer screening Z12.4 ; Breast cancer screening Z12.39 ; Colon cancer screening Z12.11 ; Hypokalemia E87.6 ; Herpes simplex type 1 infection B00.9 and Abscess of right axilla L02.411 [place] [facility] [id number] [place] [address] 19399- 7077 Sep, [place] [id number] [place] [address] 12481- 6206 Sep, ADHD (attention deficit hyperactivity disorder), combined type F90.2 ; Generalized anxiety disorder F41.1 and Dysthymic disorder F34.1 [facility] [id number] [place] [address] 62828- 0364 Aug, [place] [id number] [place] [address] 24545- 4957 Aug, [place] [id number] [place] [address] 64616- 7863 Aug, Generalized anxiety disorder F41.1 [facility] [id number] [place] [address] 82763- 5238 Aug, ADHD (attention deficit hyperactivity disorder), combined type F90.2 ; Generalized anxiety disorder F41.1 and Dysthymic disorder F34.1 [place] [id number] [place] [address] 44452- 1322 Jul, Chronic pain syndrome G89.4 ; Hypertension I10 ; Hypokalemia E87.6 ; Asthma J45.909 and Nausea R11.0 [place] [address] 12387- 7980 Jul, [place] [address] 02879- 8227 Jul, Asthma J45.909 [place] [address] 39029- 1105 Jul, ADHD (attention deficit hyperactivity disorder), combined type F90.2 ; Generalized anxiety disorder F41.1 and Dysthymic disorder F34.1 [place] [address] 75294- 2715 Jul, [place] [address] 08561- 1431 Jul, Hypertension I10 ; Arteriosclerotic coronary artery disease I25.10 ; Mixed hyperlipidemia E78.2 ; Other senior care (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 and Hyperglycemia R73.9 [place] [address] 10949- 8467 16 Jun, 2016 Hypokalemia E87.6 and Hyperglycemia R73.9 [place] [address] 12626- 2162 14 Jun, 2016 [place] [address] 36547- 2135 13 Jun, 2016 Abnormal kidney function N28.9 [place] [id number] [place] [address] 05475- 6651 Jun, [place] [address] 31330- 2918 Jun, ADHD (attention deficit hyperactivity disorder), combined type F90.2 ; Generalized anxiety disorder F41.1 and Dysthymic disorder F34.1 [place] [address] 70460- 1545 Jun, Generalized anxiety disorder F41.1 and Dysthymic disorder F34.1 [place] [address] 640365- 9642 Jun, Hypokalemia E87.6 [place] [address] 66640- 2366 May, Hypokalemia E87.6 ; Vertigo R42 and Hyperinsulinemia E16.1 [place] [address] 19062- 8277 May, [place] [address] 20019- 0033 May, Abnormal kidney function N28.9 ; Hyperinsulinemia E16.1 and Nausea R11.0 [place] [address] 11491- 7125 May, Hypokalemia E87.6 ; Nausea R11.0 ; Epigastric pain R10.13 ; Dehydration E86.0 ; Diaphoresis R61 and Right arm pain M79.601 [place] [address] 29547- 2520 May, [place] [address] 61148- 2916 May, Hypokalemia E87.6 [place] [address] 85995- 2724 May, Hypokalemia E87.6 [place] [address] 61345- 0282 Apr, [place] [address] 90284- 8674 Apr, ADHD (attention deficit hyperactivity disorder), combined type F90.2 ; Generalized anxiety disorder F41.1 and Dysthymic disorder F34.1 [place] [address] 36512- 6919 Apr, Right arm pain M79.601 and Hyperinsulinemia E16.1 [place] [id number] [place] [address] 48500- 7141 Mar, [place] [id number] [place] [address] 75995- 3700 Mar, [place] [address] 11644- 3645 Mar, Hyperinsulinemia E16.1 ; Hyperlipidemia, unspecified hyperlipidemia type E78.5 ; Central venous catheter in place Z78.9 ; Generalized anxiety disorder F41.1 and Urinary tract infection, site not specified N39.0 [place] [address] 20724- 5002 Mar, ADHD (attention deficit hyperactivity disorder), combined type F90.2 ; Generalized anxiety disorder F41.1 and Dysthymic disorder F34.1 [place] [address] 27861- 0864 February, ADHD (attention deficit hyperactivity disorder), combined type F90.2 ; Generalized anxiety disorder F41.1 and Dysthymic disorder F34.1 [place] [id number] [place] [address] 90590- 5864 February, [place] [id number] [place] [address] 36299- 6730 February, [place] [address] 22759- 0959 February, Hypertension I10 and Weight gain R63.5 [place] [id number] [place] [address] 34379- 9358 February, Major depressive disorder, recurrent, moderate F33.1 and Generalized anxiety disorder F41.1 [place] [id number] [place] [address] 54835- 9300 February, ADHD (attention deficit hyperactivity disorder), combined type F90.2 ; Generalized anxiety disorder F41.1 and Dysthymic disorder F34.1 [facility] [id number] [address]- 1993 February, [facility] [id number] 5831 February, Asthma J45.909 ; Weight gain R63.5 ; Hypertension I10 ; Rheumatoid arthritis M06.9 and Chronic pain syndrome G89.4 [facility] [address] [address]- 8258 Jan, ADHD (attention deficit hyperactivity disorder), combined type F90.2 ; Generalized anxiety disorder F41.1 and Dysthymic disorder F34.1 [facility] [address] [address]- 4470 Dec, ADHD (attention deficit hyperactivity disorder), combined type F90.2 ; Generalized anxiety disorder F41.1 and Dysthymic disorder F34.1 [facility] [address] [address]- 7136 Dec, [facility] [id number] [address]- 7331 Nov, [facility] [id number] [address]- 0038 Nov, [facility] [id number] [address]- 3715 Nov, [facility] [id number] [address]- 4671 Nov, [facility] [id number] [address]- 1029 Oct, [facility] [id number] [address]- 3678 Oct, [facility] [id number] [address]- 4545 Oct, [facility] [id number] [address]- 5332 Sep, [facility] [id number] [address]- 0855 Sep, [facility] [id number] [address]- 3029 Sep, Agoraphobia with panic disorder F40.01 ; Attention-deficit hyperactivity disorder, combined type F90.2 and Dysthymic disorder F34.1 [facility] [address] [address]- 6008 Aug, [facility] [id number] [place] [address] 33693- 0730 Aug, [facility] [id number] [place] [address] 74040- 1695 Aug, [facility] [id number] [address]- 9434 Aug, Dysthymic disorder F34.1 ; Generalized anxiety disorder F41.1 and ADHD (attention deficit hyperactivity disorder), combined type F90.2 [facility] [address] [address]- 8184 Aug, ADHD (attention deficit hyperactivity disorder), combined type F90.2 ; Generalized anxiety disorder F41.1 and Dysthymic disorder F34.1 [facility] [address] [address]- 9240 Jul, Urinary tract infection, site not specified N39.0 ; Hypotension, unspecified I95.9 and Breast cancer screening Z12.39 [facility] [id number] [address]- 3021 Jul, [facility] [id number] [address]- 9206 Jul, [facility] [id number] [address]- 4979 Jul, Urinary tract infection, site not specified N39.0 ; Nausea R11.0 ; Gastroenteritis K52.9 ; Renal failure N19 and Other hypotension I95.89 [facility] [id number] [place] [address] 54930- 0113 Jul, [facility] [id number] [place] [address] 32398- 8136 Jul, [facility] [id number] [place] [address] 11703- 6913 Jul, [facility] [id number] [place] [address] 43340- 3987 Jun, [place] [id number] [place] [address] 18219- 8611 Jun, Major depression in partial remission 296.25 ; Generalized anxiety disorder 300.02 and ADHD, predominantly inattentive type 314.01 [place] [id number] [place] [address] 85287- 7851 May, [facility] [id number] [place] [address] 97016- 5395 Apr, Major depressive disorder, recurrent episode, severe, without mention of psychotic behavior 296.33 ; Agoraphobia with panic disorder 300.21 and Generalized anxiety disorder 300.02 [place] [id number] [place] [address] 84948- 4730 Apr, ADHD (attention deficit hyperactivity disorder), combined type 314.01 ; Generalized anxiety disorder 300.02 and Dysthymic disorder 300.[id number] [place] [address] 98823- 3020 Apr, CAD (coronary artery disease) 414.00 ; HTN (hypertension) 401.9 and Tobacco use 305.1 [address] [place] [address] 61247- 2689 Apr, [facility] [id number] [place] [address] 21691- 0981 Mar, ADHD (attention deficit hyperactivity disorder), combined type 314.01 ; Generalized anxiety disorder 300.02 ; Dysthymic disorder 300.4 ; No condition on [place] II V71.09 ; Rheumatoid arthritis 714.0 ; Incontinence 788.30 ; Irritable bowel syndrome 564.1 ; Osteoporosis 733.00 and Chronic pain 338.29 [facility] [id number] [place] [address] 49057- 4489 16 Mar, 2015 Agoraphobia with panic disorder 300.21 and Major depressive disorder, recurrent episode, moderate 296.32 [facility] [id number] [place] [address] 96849- 6330 Mar, [facility] [id number] [place] [address] 52861- 0117 February, [facility] [id number] [place] [address] 57350- 8796 February, Agoraphobia with panic disorder 300.21 and Major depressive disorder, recurrent episode, moderate 296.32 [facility] [id number] [place] [address] 54629- 0647 February, [facility] [id number] [place] [address] [phone] Jan, [facility] [id number] [place] [address] [phone] Jan, [facility] [id number] [place] [address] [phone] Dec, [facility] [id number] [place] [address] [phone] Dec, [facility] [id number] [place] [address] [phone] Dec, [facility] [id number] [place] [address] [phone] Dec, [facility] [id number] [place] [address] [phone] Dec, [facility] [place] [facility] [address] [id number] [place] [address] Dec, [facility] [place] [facility] [address] [id number] [place] [address] Nov, 2014 [facility] [place] [facility] [address] [id number] [place] [address] Nov, 2014 [facility] [place] [facility] [address] [id number] [place] [address]93 Nov, 2014 [facility] [place] [facility] [address] [id number] [place] [address] Nov, 2014 [facility] [place] [facility] [address] [id number] [place] [address] Nov, 2014 [facility] [place] [facility] [address] [id number] [place] [address] Nov, [facility] [place] [facility] [address] [id number] [place] [address] Nov, 2014 [facility] [place] [facility] [address] [id number] [place] [address] 58[address] Nov, [facility] [place] [facility] [address] [facility] [id number] [place] [address] Oct, [facility] [place] [facility] [address] [id number] [place] [address] Oct, [facility] [place] [facility] [address] [id number] [address] Oct, [facility] [place] [facility] [address] [id number] [place] [address] 8704 Oct, [facility] [place] [facility] [address] [id number] [place] [address] 0364 Oct, [facility] [place] [facility] [address] [facility] [id number] [place] [address] 3806 Oct, [facility] [place] [facility] [address] [id number] [place] [address] 29 Sep, 2014 [facility] [place] [facility] [address] [id number] [place] [address]15 29 Sep, 2014 [facility] [place] [facility] [address] [id number] [place] [address] Sep, [facility] [place] [facility] [address] [facility] [id number] [place] [address] Sep, [facility] [place] [facility] [address] [id number] [place] [address] 65[address] Sep, [facility] [place] [facility] [address] [id number] [place] [address]- 1455 05 Sep, 2014 [facility] [place] [facility] [address] [id number] [place] [address]- 4162 Sep, [facility] [place] [facility] [address] [id number] [place] [address] 9210 24 Aug, 2014 [facility] [place] [facility] [address] [id number] [place] [address] 8381 24 Aug, 2014 [facility] [place] [facility] [address] [id number] [place] [address] 4150 Aug, [facility] [place] [facility] [address] [facility] [id number] [place] [address]- 6595 Aug, [facility] [place] [facility] [address] [id number] [place] [address] 9169 18 Aug, 2014 [facility] [place] [facility] [address] [facility] [id number] [place] [address] 18 Aug, 2014 [facility] [place] [facility] [address] [id number] [place] [address] 4932 17 Jul, 2014 [facility] [place] [facility] [address] [facility] [id number] [place] [address] 1248 17 Jul, 2014 [facility] [place] [facility] [address] [facility] [id number] [place] [address] 13 Jul, 2014 [facility] [place] [facility] [address] [id number] [place] [address] 9[address] Jul, [facility] [place] [facility] [address] [id number] [place] [address] 1739 Jul, [facility] [place] [facility] [address] [id number] [place] [address] 3169 Jul, [facility] [place] [facility] [address] [id number] [place] [address]- 5453 Jun, [facility] [place] [facility] [address] [id number] [place] [address] 7846 Jun, [facility] [place] [facility] [address] [id number] [place] [address]- 7577 May, [facility] [place] [facility] [address] [id number] [place] [address] 1341 May, [facility] [place] [facility] [address] [id number] [place] [address]- 1160 Apr, [facility] [place] [facility] [address] [id number] [place] [address]- 7476 Apr, [facility] [place] [facility] [address] [id number] [place] [address]- 8274 Apr, [facility] [place] [facility] [address] [id number] [place] [address]- 4091 Apr, [facility] [place] [facility] [address] [id number] [place] [address] 9817 Mar, [facility] [place] [facility] [address] [id number] [place] [address] 9066 Mar, [facility] [place] [facility] [address] [id number] [place] [address]- 4373 Mar, [facility] [place] [facility] [address] [id number] [place] [address]- 8662 Mar, [facility] [place] [facility] [address] [id number] [place] [address] 0104 February, [facility] [place] [facility] [address] [id number] [place] [address]- 5698 February, [facility] [place] [facility] [address] [id number] [place] [address]- 5676 February, [facility] [place] [facility] [address] [id number] [place] [address] 3204 February, [facility] [place] [facility] [address] [id number] [place] [address]- 3684 February, [facility] [place] [facility] [address] [id number] [place] [address]- 1715 February, [facility] [place] [facility] [address] [id number] [place] [address]- 5456 Jan, [facility] [place] [facility] [address] [id number] [place] [address] 1253 Jan, [facility] [place] [facility] [address] [id number] [place] [address] 4000 Dec, [facility] [place] [facility] [address] [id number] [place] [address]- 2221 Dec, [facility] [place] [facility] [address] [id number] [place] [address]- 9361 Nov, [facility] [place] [facility] [address] [id number] [place] [address]- 2644 Nov, [facility] [place] [facility] [address] [id number] [place] [address]- 7003 Oct, [facility] [place] [facility] [address] [id number] [place] [address]- 0945 Oct, [facility] [place] [facility] [address] [id number] [place] [address]- 5864 Oct, [facility] [place] [facility] [address] [id number] [place] [address]- 4147 Oct, [facility] [place] [facility] [address] [id number] [place] [address]- 8274 16 Sep, 2012 [facility] [address] [id number] [place] [address] 7303 Sep, [facility] [address] [id number] [place] [address]- 6216 Sep, [facility] [address] [id number] [place] [address] 1989 Sep, 2012 [facility] [address] [id number] [place] [address]- 0933 Sep, [facility] [address] [id number] [place] [address]- 2874 Sep, [facility] [address] [id number] [place] [address]- 1691 Sep, [facility] [address] [id number] [place] [address]- 3158 Sep, [facility] [address] [id number] [place] [address]- 2121 Aug, [facility] [address] [id number] [place] [address]- 6919 Aug, [facility] [address] [id number] [place] [address]- 2064 Aug, [facility] [address] [id number] [place] [address]- 9551 Aug, [facility] [address] [id number] [place] [address]- 9182 Aug, [facility] [place] [facility] [address] [id number] [place] [address]- 6676 Aug, [facility] [address] [id number] [place] [address]- 3829 Aug, [facility] [address] [id number] [place] [address]- 8449 Aug, [facility] [address] [id number] [place] [address]- 9433 Aug, [facility] [place] [facility] [address] [id number] [place] [address]- 2546 Jul, [facility] [place] [facility] [address] [id number] [place] [address]- 5536 Jun, [facility] [place] [facility] [address] [id number] [place] [address]- 2546 May, [facility] [place] [facility] [address] [id number] [place] [address]- 4527 May, [facility] [place] [facility] [address] [id number] [place] [address]- 2356 May, [facility] [place] [facility] [address] [id number] [place] [address]- 2546 Apr, [facility] [place] [facility] [address] [id number] [place] [address]- 3836 Mar, [facility] [place] [facility] [address] [id number] [place] [address]- 5215 February, [facility] [place] [facility] [address] [id number] [place] [address]- 0729 Oct, [facility] [place] [facility] [address] [id number] [place] [address]- 9172 Oct, [facility] [place] [facility] [address] [id number] [place] [address]- 0115 Oct, [facility] [place] [facility] [address] [id number] [place] [address]- 1195 Oct, [facility] [place] [facility] [address] [id number] [place] [address]- 2386 Oct, [facility] [place] [facility] [address] [id number] [place] [address]- 9706 Oct, [facility] [place] [facility] [address] [id number] [place] [address]- 4467 Sep, [facility] [place] [facility] [address] [id number] [place] [address]- 5966 Sep, [facility] [place] [facility] [address] [id number] [place] [address]- 9412 Aug, [facility] [place] [facility] [address] [facility] [id number] [place] [address]- 1945 Aug, [facility] [place] [facility] [address] [id number] [place] [address]- 6272 Jul, [facility] [place] [facility] [address] [id number] [place] [address], [place] [address]- 8621 Jul, [facility] [place] [facility] [address] [id number] [place] [address]- 6336 Jul, [facility] [place] [facility] [id number] [place] [address], [place] [address]- 9292 Jul, [facility] [place] [facility] [address] [id number] [place] [address]- 3208 Jul, [facility] [place] [facility] [address] [id number] [place] [address]- 2433 Jul, [facility] [place] [facility] [address] [facility] [id number] [place] [address]- 6478 Jul, [facility] [place] [facility] [address] [facility] [id number] [place] [address]- 1301 Jul, [facility] [place] [facility] [address] [id number] [place] [address]- 7417 Jun, [facility] [place] [facility] [address] [id number] [place] [address]- 7887 Jun, [facility] [place] [facility] [address] [facility] [id number] [place] [address]- 5602 May, [facility] [place] [facility] [address] [facility] [id number] [place] [address]- 6722 Apr, [facility] [place] [facility] [address] [id number] [place] [address]- 1652 Mar, [facility] [place] [facility] [address] [id number] [place] [address]- 4528 Mar, [facility] [place] [facility] [address] [id number] [place] [address]- 3266 Mar, [facility] [place] [facility] [address] [id number] [place] [address]- 8749 Mar, [facility] [place] [facility] [address] [id number] [place] [address]- 0965 Jan, [facility] [place] [facility] [address] [id number] [place] [address]- 0217 Nov, [facility] [place] [facility] [address] [id number] [place] [address]- 3894 Nov, [facility] [place] [facility] [address] [id number] [place] [address]- 7508 Nov, [facility] [place] [facility] [address] [id number] [place] [address]- 6169 Oct, [facility] [place] [facility] [address] [id number] [place] [address]- 4823 Sep, [facility] [place] [facility] [address] [id number] [place] [address]- 4960 Sep, [facility] [place] [facility] [address] [id number] [place] [address]- 8172 Aug, [facility] [place] [facility] [address] [id number] [place] [address]- 8475 Aug, [facility] [place] [facility] [address] [id number] [place] [address]- 0568 Aug, [facility] [place] [facility] [address] [id number] [place] [address]- 5310 Aug, [facility] [place] [facility] [address] [id number] [place] [address]- 1376 Jul, [facility] [address] [facility] [id number] [place] [address]- 2546 May, [facility] [address] [id number] [place] [address]- 2546 Jan, [facility] [address] [facility] [id number] [place] [address]- 2546 Nov, [facility] [address] [id number] [place] [address]- 2546 Apr, [facility] [address] [facility] [id number] [place] [address] 2546 Dec, [facility] [address] [id number] [place] [address] 2546 12 Nov, 2008 IMMUNIZATIONS No Known Immunizations SOCIAL HISTORY Never Assessed REASON FOR VISIT medication PLAN OF CARE VITAL SIGNS MEDICATIONS Medication Instructions Dosage Frequency Start Date End Date Duration Status Xanax 0.5 MG Orally Twice a day 1 tablet 12Sep, 28 days Active RESULTS No Results PROCEDURES No Known procedures INSTRUCTIONS MEDICATIONS ADMINISTERED No Known Medications MEDICAL (GENERAL) HISTORY Type Description Date Medical History Cardiovascular ueispnuv-UCV-Cptyhebn, 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 Mendoza Medical History Stress test 03/07/13-Dr. Kelly Dietrich normal Medical History Hypertension Medical History Asthma Medical History Gastrointestinal Disorder--IBS, GERD, Hx of fatty liver Medical History Hernia 1979 Medical History Cervical dysplasia 02/16-Pap LGSIL/Stephen-mild dysplasia Medical History Hyperlipidemia Medical History Rheumatoid [...] Kidney injury 07/10/15-07/11/2015 Hospitalization History Symptomatic Hypokalemia/Nause-[facility]ia [facility] 05/13/16 Hospitalization History Stroke 05/03/2017 Hospitalization History stroke 08/24/2017--09/01/2017
--- OUTSIDE RECORDS SUMMARY | 2018-06-12 16:08 | XMS REPORT ---
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 Role Phone WILMA DIEGO Unavailable PROBLEMS Type Condition ICD9-CM Code WNQ28-OC Code Onset Dates Condition Status SNOMED Code Problem Chronic obstructive pulmonary disease, unspecified J44.9 Active [id number] Problem Other chcf (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 Active 119150939 Problem Obstructive sleep apnea G47.33 Active 32728781 Problem Anxiety F41.9 Active 18003330 Problem ADHD (attention deficit hyperactivity disorder), combined type F90.2 Active 30341030 Problem Gastroesophageal reflux disease with esophagitis K21.0 Active 181288993 Problem Generalized anxiety disorder F41.1 Active 91403225 Problem Sleep apnea in adult G47.30 Active 37076765 Problem Cerebrovascular accident (CVA), unspecified mechanism I63.9 Active 207082013 Problem Rheumatoid arthritis involving multiple sites, unspecified rheumatoid factor presence M06.9 Active 116187814 Problem Dysthymic disorder F34.1 Active 47492525 Problem Chronic pain syndrome G89.4 Active 149637928 Problem Asthma J45.909 Active 744677296 Problem Weight gain R63.5 Active 6970030 Problem Rheumatoid arthritis M06.9 Active 92557109 Problem Arteriosclerotic coronary artery disease I25.10 Active 65004132 Problem Hyperinsulinemia E16.1 Active 55991553 Problem Hypertension I10 Active 89330900 Problem Neuropathy G62.9 Active 365374122 Problem Mixed hyperlipidemia E78.2 Active 309895604 Problem Other insomnia G47.09 Active [id number] ALLERGIES No Information ENCOUNTERS Encounter Location Date Diagnosis [facility] [address] [facility] [id number] [address] Dec, [facility] [address] [id number] [address] 5090 Dec, [facility] [id number] [place] [address] 54079- 6090 Dec, [facility] [id number] [place] [address] 653941- 7906 Nov, Dysthymic disorder F34.1 [facility] [id number] [place] [address] 62390- 3629 Oct, [facility] [address] 73252- 6665 Oct, [facility] [address] 97508- 0020 Oct, [facility] [id number] [place] [address] 72210- 3189 Oct, Diarrhea, unspecified type R19.7 and Dysuria R30.0 [place] [address] 28919- 3271 Oct, [facility] [id number] [place] [address] 31804- 1154 Sep, [place] [id number] [place] [address] 59408- 1201 Sep, [place] [id number] [place] [address] 10744- 7267 Sep, Anxiety F41.9 [place] [id number] [place] [address] 62281- 6613 Sep, Cerebrovascular accident (CVA), unspecified mechanism I63.9 ; Mixed hyperlipidemia E78.2 ; Gastroesophageal reflux disease with esophagitis K21.0 and Anxiety F41.9 [facility] [id number] [place] [address] 11801- 2484 Sep, [facility] [id number] [place] [address] 01031- 6815 Aug, Chronic obstructive pulmonary disease, unspecified J44.9 ; Asthma J45.909 ; Nausea R11.0 ; Dysthymic disorder F34.1 ; Cerebrovascular accident (CVA), unspecified mechanism I63.9 and Rheumatoid arthritis M06.9 [place] [address] 39599- 6988 Aug, Nausea R11.0 ; Encounter for immunization Z23 ; Sleep apnea in adult G47.30 ; Rheumatoid arthritis involving multiple sites, unspecified rheumatoid factor presence M06.9 ; Generalized anxiety disorder F41.1 ; Dysthymic disorder F34.1 and Asthma J45.909 [place] [address] 83083- 9928 Jul, [place] [address] 33748- 2034 May, ADHD (attention deficit hyperactivity disorder), combined type F90.2 ; Generalized anxiety disorder F41.1 and Persistent depressive disorder F34.1 [place] [address] 05778- 8282 May, Cerebrovascular accident (CVA), unspecified mechanism I63.9 [place] [address] 85067- 4327 Apr, Mixed hyperlipidemia E78.2 and Cerebrovascular accident (CVA ), unspecified mechanism I63.9 [place] [address] 20674- 2192 Apr, Generalized anxiety disorder F41.1 [place] [address] 21656- 6826 Apr, Bronchitis J40 and Tobacco use Z72.[address] 69741- 0675 Apr, Mixed hyperlipidemia E78.2 [place] [address] 10565- 4852 Apr, Other oysterman (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 [place] [id number] [place] [address] 92815- 0980 Apr, [facility] [id number] [place] [address] 96988- 8766 Apr, Generalized anxiety disorder F41.1 [facility] [id number] [place] [address] 26031- 9841 Apr, Obstructive sleep apnea G47.33 and Hyperinsulinemia E16.1 [facility] [id number] [place] [address] 36832- 4014 Apr, ADHD (attention deficit hyperactivity disorder), combined type F90.2 ; Generalized anxiety disorder F41.1 and Persistent depressive disorder F34.1 [facility] [id number] [place] [address] 73257- 7128 Mar, [place] [id number] [place] [address] 07160- 4896 Mar, Generalized anxiety disorder F41.1 [facility] [id number] [place] [address] 76345- 8000 Mar, Tarsal tunnel syndrome of both lower extremities G57.53 [facility] [id number] [place] [address] 24272- 5058 February, [facility] [id number] [place] [address] 30854- 2486 February, [facility] [id number] [place] [address] 39120- 8020 February, Asthma J45.909 [facility] [id number] [place] [address] 62163- 3269 February, Generalized anxiety disorder F41.1 [facility] [id number] [place] [address] 32529- 0365 February, Hypoxemia R09.02 ; Hyperglycemia R73.9 ; Rheumatoid arthritis M06.9 and Generalized anxiety disorder F41.1 [facility] [id number] [address]- 4541 February, [facility] [id number] [place] [address] 43685- 0520 Jan, Chronic obstructive pulmonary disease, unspecified J44.9 [facility] [id number] [place] [address] 98347- 3443 Jan, Chronic pain syndrome G89.4 [facility] [address] 95180- 3839 Jan, Hypoxemia R09.02 [facility] [address] 46735- 9212 Jan, [place] [address] 46538- 2523 Jan, Chronic obstructive pulmonary disease, unspecified J44.9 ; Hypoxemia R09.02 ; Other insomnia G47.09 and Left anterior shoulder pain M25.512 [place] [address] 42306- 0600 Jan, Numbness in feet R20.0 and Neuropathy G62.9 [place] [id number] [place] [address] 06910- 8878 Jan, [place] [id number] [place] [address] 28953- 4233 Dec, Acute pain of left shoulder M25.512 [place] [id number] [place] [address] 36946- 6326 Dec, Acute pain of left shoulder M25.512 [place] [id number] [place] [address] 37941- 5639 Dec, Generalized anxiety disorder F41.1 [facility] [id number] [place] [address] 86998- 3998 Dec, Generalized anxiety disorder F41.1 [facility] [id number] [place] [address] 15800- 4836 Nov, ADHD (attention deficit hyperactivity disorder), combined type F90.2 ; Generalized anxiety disorder F41.1 and Persistent depressive disorder F34.1 [facility] [id number] [place] [address] 73413- 0630 Nov, Acute pain of left shoulder M25.512 [facility] [id number] [place] [address] 79990- 3128 Nov, ADHD (attention deficit hyperactivity disorder), combined type F90.2 ; Generalized anxiety disorder F41.1 and Persistent depressive disorder F34.1 [facility] [id number] [place] [address] 91701- 5333 Nov, Chronic pain syndrome G89.4 [facility] [id number] [place] [address] 85617- 5838 Nov, Chronic pain syndrome G89.4 [facility] [id number] [place] [address] 42474- 6711 Nov, Acute pain of left shoulder M25.512 [facility] [id number] [place] [address] 60195- 5568 Nov, Generalized anxiety disorder F41.1 [facility] [id number] [place] [address] 89976- 2362 Nov, Acute pain of left shoulder M25.512 [facility] [id number] [place] [address] 54696- 9889 Nov, ADHD (attention deficit hyperactivity disorder), combined type F90.2 ; Generalized anxiety disorder F41.1 and Persistent depressive disorder F34.1 [facility] [id number] [place] [address] 55844- 5545 Nov, Acute pain of left shoulder M25.512 ; Generalized anxiety disorder F41.1 ; Chronic pain syndrome G89.4 ; Hyperinsulinemia E16.1 ; Pain of left foot M79.672 and Pain in right foot M79.671 [facility] [id number] [place] [address] 05005- 0987 Oct, ADHD (attention deficit hyperactivity disorder), combined type F90.2 ; Generalized anxiety disorder F41.1 and Dysthymic disorder F34.1 [place] [id number] [place] [address] 53018- 4882 Sep, [place] [id number] [place] [address] 18158- 9753 Sep, [place] [id number] [place] [address] 64517- 1191 Sep, Routine gynecological examination V72.31 ; Cervical cancer screening Z12.4 ; Breast cancer screening Z12.39 ; Colon cancer screening Z12.11 ; Hypokalemia E87.6 ; Herpes simplex type 1 infection B00.9 and Abscess of right axilla L02.411 [place] [id number] [place] [address] 04831- 1202 Sep, [place] [id number] [place] [address] 37329- 3299 Sep, ADHD (attention deficit hyperactivity disorder), combined type F90.2 ; Generalized anxiety disorder F41.1 and Dysthymic disorder F34.1 [place] [id number] [place] [address] 95386- 2190 Aug, [place] [address] [id number] [address]- 0665 Aug, [place] [id number] [place] [address] 96253- 8062 Aug, Generalized anxiety disorder F41.1 [place] [id number] [place] [address] 41087- 0561 Aug, ADHD (attention deficit hyperactivity disorder), combined type F90.2 ; Generalized anxiety disorder F41.1 and Dysthymic disorder F34.1 [place] [id number] [place] [address] 71877- 4061 Jul, Chronic pain syndrome G89.4 ; Hypertension I10 ; Hypokalemia E87.6 ; Asthma J45.909 and Nausea R11.0 [place] [address] 90814- 1639 Jul, [place] [address] 35219- 4523 Jul, Asthma J45.909 [place] [address] 93639- 8557 Jul, ADHD (attention deficit hyperactivity disorder), combined type F90.2 ; Generalized anxiety disorder F41.1 and Dysthymic disorder F34.1 [place] [address] 90655- 0448 Jul, [place] [address] 57213- 3338 Jul, Hypertension I10 ; Arteriosclerotic coronary artery disease I25.10 ; Mixed hyperlipidemia E78.2 ; Other oysterman (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 and Hyperglycemia R73.9 [place] [address] 62858- 6297 16 Jun, 2016 Hypokalemia E87.6 and Hyperglycemia R73.9 [place] [address] 09740- 8805 14 Jun, 2016 [place] [address] 78670- 6167 13 Jun, 2016 Abnormal kidney function N28.9 [place] [id number] [place] [address] 61645- 5125 09 Jun, [address] 18472- 1499 Jun, ADHD (attention deficit hyperactivity disorder), combined type F90.2 ; Generalized anxiety disorder F41.1 and Dysthymic disorder F34.1 [place] [id number] [place] [address]- 7893 Jun, Generalized anxiety disorder F41.1 and Dysthymic disorder F34.1 [place] [address] [address]- 5602 Jun, Hypokalemia E87.6 [place] [address] 62279- 2167 May, Hypokalemia E87.6 ; Vertigo R42 and Hyperinsulinemia E16.1 [place] [address] 74814- 9016 May, [place] [address] 38565- 3366 May, Abnormal kidney function N28.9 ; Hyperinsulinemia E16.1 and Nausea R11.0 [place] [address] 63077- 9073 May, Hypokalemia E87.6 ; Nausea R11.0 ; Epigastric pain R10.13 ; Dehydration E86.0 ; Diaphoresis R61 and Right arm pain M79.601 [place] [address] 33529- 5697 May, [place] [id number] [place] [address] 53099- 4486 May, Hypokalemia E87.6 [place] [address] 83861- 4213 May, Hypokalemia E87.6 [place] [address] 41960- 9538 Apr, [place] [address] 01340- 9591 Apr, ADHD (attention deficit hyperactivity disorder), combined type F90.2 ; Generalized anxiety disorder F41.1 and Dysthymic disorder F34.1 [place] [address] [id number] [address]- 6959 Apr, Right arm pain M79.601 and Hyperinsulinemia E16.1 [place] [id number] [place] [address] 60926- 2676 Mar, [place] [id number] [place] [address] 25406- 8206 Mar, [place] [id number] [place] [address] 71938- 0042 Mar, Hyperinsulinemia E16.1 ; Hyperlipidemia, unspecified hyperlipidemia type E78.5 ; Central venous catheter in place Z78.9 ; Generalized anxiety disorder F41.1 and Urinary tract infection, site not specified N39.0 [place] [id number] [place] [address] 08617- 7221 Mar, ADHD (attention deficit hyperactivity disorder), combined type F90.2 ; Generalized anxiety disorder F41.1 and Dysthymic disorder F34.1 [place] [id number] [place] [address] 49271- 3966 February, ADHD (attention deficit hyperactivity disorder), combined type F90.2 ; Generalized anxiety disorder F41.1 and Dysthymic disorder F34.1 [place] [id number] [place] [address] 44595- 5414 February, [place] [id number] [place] [address] 35003- 9926 February, [place] [id number] [place] [address] 23033- 1635 February, Hypertension I10 and Weight gain R63.5 [place] [id number] [place] [address] 04355- 8986 February, Major depressive disorder, recurrent, moderate F33.1 and Generalized anxiety disorder F41.1 [place] [id number] [place] [address] 42569- 0117 February, ADHD (attention deficit hyperactivity disorder), combined type F90.2 ; Generalized anxiety disorder F41.1 and Dysthymic disorder F34.1 [facility] [address] [address]- 5325 February, [facility] [address] [address]- 7235 February, Asthma J45.909 ; Weight gain R63.5 ; Hypertension I10 ; Rheumatoid arthritis M06.9 and Chronic pain syndrome G89.4 [facility] [id number] [place] [address] 15615- 4519 Jan, ADHD (attention deficit hyperactivity disorder), combined type F90.2 ; Generalized anxiety disorder F41.1 and Dysthymic disorder F34.1 [facility] [address] [address]- 3381 Dec, ADHD (attention deficit hyperactivity disorder), combined type F90.2 ; Generalized anxiety disorder F41.1 and Dysthymic disorder F34.1 [facility] [address] [address]- 8184 Dec, [facility] [id number] [place] [address] 25188- 4686 Nov, [facility] [address] [address]- 3864 Nov, [facility] [address] [address]- 9199 Nov, [facility] [address] [address]- 7502 Nov, [facility] [id number] [place] [address] 47589- 5035 Oct, [facility] [address] [address]- 3402 Oct, [facility] [id number] [place] [address] 25427- 1412 Oct, [facility] [address] [address]- 6807 Sep, [facility] [id number] [place] [address] 15991- 2899 Sep, [facility] [id number] [place] [address] 34446- 6346 Sep, Agoraphobia with panic disorder F40.01 ; Attention-deficit hyperactivity disorder, combined type F90.2 and Dysthymic disorder F34.1 [facility] [id number] [place] [address] 71335- 3955 Aug, [facility] [id number] [place] [address] 07587- 3325 Aug, [facility] [id number] [place] [address] 39485- 4264 Aug, [facility] [id number] [place] [address] 92719- 6743 Aug, Dysthymic disorder F34.1 ; Generalized anxiety disorder F41.1 and ADHD (attention deficit hyperactivity disorder), combined type F90.2 [facility] [id number] [place] [address] 65935- 4969 Aug, ADHD (attention deficit hyperactivity disorder), combined type F90.2 ; Generalized anxiety disorder F41.1 and Dysthymic disorder F34.1 [facility] [id number] [place] [address] 91458- 3498 Jul, Urinary tract infection, site not specified N39.0 ; Hypotension, unspecified I95.9 and Breast cancer screening Z12.39 [facility] [id number] [place] [address] 15409- 5851 Jul, [facility] [id number] [place] [address] 69422- 7285 Jul, [facility] [id number] [place] [address] 13228- 6517 Jul, Urinary tract infection, site not specified N39.0 ; Nausea R11.0 ; Gastroenteritis K52.9 ; Renal failure N19 and Other hypotension I95.89 [place] [id number] [place] [address] 01745- 1187 Jul, [place] [id number] [place] [address] 58728- 0492 Jul, [place] [id number] [place] [address] 33440- 0447 Jul, [place] [id number] [place] [address] 02637- 9471 Jun, [place] [id number] [place] [address] 44216- 7365 Jun, Major depression in partial remission 296.25 ; Generalized anxiety disorder 300.02 and ADHD, predominantly inattentive type 314.01 [place] [id number] [place] [address] 00916- 2540 May, [address] 15189- 8056 Apr, Major depressive disorder, recurrent episode, severe, without mention of psychotic behavior 296.33 ; Agoraphobia with panic disorder 300.21 and Generalized anxiety disorder 300.02 [place] [id number] [place] [address] 56835- 8700 Apr, ADHD (attention deficit hyperactivity disorder), combined type 314.01 ; Generalized anxiety disorder 300.02 and Dysthymic disorder 300.4 [place] [id number] [place] [address] 87098- 8537 Apr, CAD (coronary artery disease) 414.00 ; HTN (hypertension) 401.9 and Tobacco use 305.1 [place] [id number] [place] [address] 71976- 4370 Apr, [place] [address] 69912- 9662 Mar, ADHD (attention deficit hyperactivity disorder), combined type 314.01 ; Generalized anxiety disorder 300.02 ; Dysthymic disorder 300.4 ; No condition on [place] II V71.09 ; Rheumatoid arthritis 714.0 ; Incontinence 788.30 ; Irritable bowel syndrome 564.1 ; Osteoporosis 733.00 and Chronic pain 338.29 [facility] [id number] [place] [address] 44499- 4644 Mar, Agoraphobia with panic disorder 300.21 and Major depressive disorder, recurrent episode, moderate 296.32 [facility] [id number] [place] [address] 62893- 6544 Mar, [facility] [id number] [place] [address] 48988- 6705 February, [facility] [id number] [place] [address] 18992- 8603 February, Agoraphobia with panic disorder 300.21 and Major depressive disorder, recurrent episode, moderate 296.32 [facility] [id number] [place] [address] 92295- 3453 February, [facility] [id number] [place] [address] 65904- 4736 Jan, [facility] [id number] [place] [address] 75062- 1192 Jan, [facility] [id number] [place] [address] 17597- 6323 Dec, [facility] [id number] [place] [address] 33994- 2739 Dec, [facility] [id number] [place] [address] 96178- 7822 Dec, [facility] [id number] [place] [address] 60163- 6993 Dec, [facility] [id number] [place] [address] 94652685- 5775 Dec, [facility] [place] [facility] [address] [id number] [place] [address]- 1040 Dec, [facility] [place] [facility] [address] [id number] [place] [address] Nov, 2014 [facility] [place] [facility] [address] [facility] [id number] [place] [address] Nov, [facility] [place] [facility] [address] [id number] [place] [address] Nov, 2014 [facility] [place] [facility] [address] [id number] [place] [address] Nov, [facility] [place] [facility] [address] [facility] [id number] [place] [address] Nov, [facility] [place] [facility] [address] [facility] [id number] [place] [address] Nov, [facility] [place] [facility] [address] [facility] [id number] [place] [address] Nov, [facility] [place] [facility] [address] [facility] [id number] [place] [address] Nov, [facility] [place] [facility] [address] [facility] [id number] [place] [address] Oct, [facility] [place] [facility] [address] [facility] [id number] [place] [address] Oct, [facility] [place] [facility] [address] [facility] [id number] [address] Oct, [facility] [place] [facility] [address] [facility] [id number] [place] [address] Oct, [facility] [place] [facility] [address] [facility] [facility] [id number] [address] Oct, [facility] [place] [facility] [address] [facility] [id number] [place] [address] Oct, [facility] [place] [facility] [address] [id number] [place] [address] Sep, [facility] [place] [facility] [address] [id number] [place] [address] Sep, [facility] [place] [facility] [address] [id number] [place] [address] Sep, [facility] [place] [facility] [address] [id number] [place] [address] Sep, [facility] [place] [facility] [address] [id number] [place] [address] Sep, [facility] [place] [facility] [address] [id number] [place] [address] Sep, [facility] [place] [facility] [address] [id number] [place] [address] 7633 Sep, [facility] [place] [facility] [address] [id number] [place] [address] Aug, [facility] [place] [facility] [address] [id number] [place] [address] 24 Aug, 2014 [facility] [place] [facility] [address] [id number] [place] [address] 6480 Aug, [facility] [place] [facility] [address] [id number] [place] [address]- [address] Aug, [facility] [place] [facility] [address] [id number] [place] [address]- 9226 18 Aug, 2014 [facility] [place] [facility] [address] [id number] [place] [address]- [address]274 18 Aug, 2014 [facility] [place] [facility] [address] [id number] [place] [address]- 8182 17 Jul, 2014 [facility] [place] [facility] [address] [id number] [place] [address]- [address]95 17 Jul, 2014 [facility] [place] [facility] [address] [id number] [place] [address]- 5706 Jul, [facility] [place] [facility] [address] [id number] [place] [address] 4316 Jul, [facility] [place] [facility] [address] [id number] [place] [address]- 2316 Jul, [facility] [place] [facility] [address] [id number] [place] [address]304 Jul, [facility] [place] [facility] [address] [id number] [place] [address]- 4379 Jun, [facility] [place] [facility] [address] [id number] [place] [address] 7848 Jun, [facility] [place] [facility] [address] [id number] [place] [address]- 1685 May, [facility] [place] [facility] [address] [id number] [place] [address] 8756 May, [facility] [place] [facility] [address] [id number] [place] [address]- 4009 Apr, [facility] [place] [facility] [address] [id number] [place] [address]- 4485 Apr, [facility] [place] [facility] [address] [id number] [place] [address]- 1312 Apr, [facility] [place] [facility] [address] [id number] [place] [address] Apr, [facility] [place] [facility] [address] [id number] [place] [address] Mar, [facility] [place] [facility] [address] [id number] [place] [address]- 0792 Mar, [facility] [place] [facility] [address] [id number] [place] [address] Mar, [facility] [place] [facility] [address] [id number] [place] [address] 1599 Mar, [facility] [place] [facility] [address] [id number] [place] [address]- 10[address] February, [facility] [place] [facility] [address] [id number] [place] [address] February, [facility] [place] [facility] [address] [id number] [place] [address] 5189 February, [facility] [place] [facility] [address] [id number] [place] [address] 1805 February, [facility] [place] [facility] [address] [id number] [place] [address] 0674 February, [facility] [place] [facility] [address] [id number] [place] [address]- 9525 February, [facility] [place] [facility] [address] [id number] [place] [address]- 5291 Jan, [facility] [place] [facility] [address] [id number] [place] [address] Jan, [facility] [place] [facility] [address] [id number] [place] [address]- 7777 Dec, [facility] [place] [facility] [address] [id number] [place] [address] Dec, [facility] [place] [facility] [address] [id number] [place] [address] Nov, [facility] [place] [facility] [address] [id number] [place] [address] Nov, [facility] [place] [facility] [address] [id number] [place] [address] 3917 Oct, [facility] [place] [facility] [address] [id number] [place] [address] 5573 Oct, [facility] [place] [facility] [address] [id number] [place] [address] 8764 Oct, [facility] [place] [facility] [address] [id number] [place] [address] 8907 Oct, [facility] [address] [id number] [place] [address] 2528 Sep, [facility] [place] [facility] [address] [id number] [place] [address]- 5306 Sep, [facility] [place] [facility] [address] [id number] [place] [address]- 7284 Sep, [facility] [place] [facility] [address] [id number] [place] [address]- 0056 Sep, [facility] [address] [id number] [place] [address]- 2526 Sep, [facility] [place] [facility] [address] [id number] [place] [address]- 6836 Sep, [facility] [place] [facility] [address] [facility] [id number] [place] [address]- 0772 Sep, [facility] [place] [facility] [address] [id number] [place] [address] 38[address] Sep, [facility] [place] [facility] [address] [id number] [place] [address]- 9384 Aug, [facility] [place] [facility] [address] [id number] [place] [address] 6[address] Aug, [facility] [place] [facility] [address] [facility] [id number] [place] [address] 8963 Aug, [facility] [place] [facility] [address] [id number] [place] [address] 9216 Aug, [facility] [place] [facility] [address] [id number] [place] [address]- [address]39 Aug, [facility] [place] [facility] [address] [id number] [place] [address] 3796 Aug, [facility] [place] [facility] [address] [facility] [id number] [place] [address] 0418 Aug, [facility] [place] [facility] [address] [id number] [place] [address] 2546 Aug, [facility] [address] [id number] [place] [address] 8084 Aug, [facility] [place] [facility] [address] [id number] [place] [address]- 1046 Jul, [facility] [place] [facility] [address] [id number] [place] [address]- 5306 Jun, [facility] [place] [facility] [address] [id number] [place] [address]- 8371 May, [facility] [address] [id number] [place] [address]- 4021 May, [facility] [place] [facility] [address] [id number] [place] [address]- 4679 May, [facility] [address] [id number] [place] [address]- 4067 Apr, [facility] [place] [facility] [address] [id number] [place] [address]- 5412 Mar, [facility] [address] [id number] [place] [address]- 9167 February, [facility] [place] [facility] [address] [id number] [place] [address]- 2200 Oct, [facility] [place] [facility] [address] [id number] [place] [address] Oct, [facility] [place] [facility] [address] [id number] [place] [address]- 9646 Oct, [facility] [place] [facility] [address] [id number] [place] [address]- 1463 Oct, [facility] [place] [facility] [address] [id number] [place] [address]- 2059 Oct, [facility] [place] [facility] [address] [id number] [place] [address]- 8493 Oct, [facility] [place] [facility] [address] [id number] [place] [address]- 4576 Sep, [facility] [place] [facility] [address] [id number] [place] [address]- 4450 Sep, [facility] [place] [facility] [address] [id number] [place] [address]- 2546 Aug, [facility] [place] [facility] [address] [id number] [place] [address]- 0778 Aug, [facility] [place] [facility] [address] [id number] [place] [address]- 3108 Jul, [facility] [place] [facility] [address] [id number] [place] [address]- 4473 Jul, [facility] [place] [facility] [address] [id number] [place] [address] Jul, [facility] [place] [facility] [address] [id number] [place] [address]- 9167 Jul, [facility] [place] [facility] [address] [id number] [place] [address] Jul, [facility] [place] [facility] [address] [id number] [place] [address]- 1049 Jul, [facility] [place] [facility] [address] [id number] [place] [address] Jul, [facility] [place] [facility] [address] [id number] [place] [address]- 1753 Jul, [facility] [place] [facility] [address] [id number] [place] [address] 2540 Jun, [facility] [place] [facility] [address] [id number] [place] [address]- 3516 Jun, [facility] [place] [facility] [address] [id number] [place] [address]- 2546 May, [facility] [place] [facility] [address] [id number] [place] [address]- 0896 Apr, [facility] [place] [facility] [address] [id number] [place] [address]- 6819 Mar, [facility] [place] [facility] [address] [id number] [place] [address]- 4643 Mar, [facility] [place] [facility] [address] [id number] [place] [address]- 1786 Mar, [facility] [place] [facility] [address] [id number] [place] [address]- 9957 Mar, [facility] [place] [facility] [address] [id number] [place] [address]- 8398 Jan, [facility] [place] [facility] [address] [id number] [place] [address]- 5568 Nov, [facility] [place] [facility] [address] [id number] [place] [address]- 4282 Nov, [facility] [place] [facility] [address] [id number] [place] [address]- 6890 Nov, [facility] [place] [facility] [address] [id number] [place] [address]- 6462 Oct, [facility] [place] [facility] [address] [id number] [place] [address]- 3853 Sep, [facility] [place] [facility] [address] [id number] [place] [address]- 3769 Sep, [facility] [place] [facility] [address] [id number] [place] [address]- 2044 Aug, [facility] [place] [facility] [address] [id number] [place] [address]- 1577 Aug, [facility] [place] [facility] [address] [id number] [place] [address]- 9277 Aug, [facility] [place] [facility] [address] [id number] [place] [address]- 2159 Aug, [facility] [place] [facility] [address] [id number]- [address]12 13 Jul, 2011 [facility] [address] [id number] [address] May, [facility] [id number] [address] 10[address] Jan, [facility] [id number] [address]- 6561 Nov, [facility] [id number] [address]- 3542 Apr, [facility] [id number] [address]64 Dec, [facility] [id number] [address]34 Nov, IMMUNIZATIONS No Known Immunizations SOCIAL HISTORY Never Assessed REASON FOR VISIT f/u PLAN OF CARE Activity Details Follow Up 4 Weeks Reason: F/U VITAL SIGNS MEDICATIONS Unknown Medications RESULTS No Results PROCEDURES Procedure Date Ordered Result Body Site [facility] ESTAB PT April 14, 2017 Psychotherapy, patient &/family, 45 minutes, established patient April 14, 2017 INSTRUCTIONS MEDICATIONS ADMINISTERED No Known Medications MEDICAL (GENERAL) HISTORY Type Description Date Medical History Cardiovascular [id number], 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 Mendoza Medical History Stress test 03/07/13-Dr. Kelly Dietrich normal Medical History Hypertension Medical History Asthma Medical History Gastrointestinal Disorder--IBS, GERD, Hx of fatty liver Medical History Hernia 1979 Medical History Cervical dysplasia 02/16-Pap LGSIL/[place]-mild dysplasia Medical History Hyperlipidemia Medical History Rheumatoid [...] Kidney injury 07/10/15-07/11/2015 Hospitalization History Symptomatic Hypokalemia/Nause-Via [facility] 05/13/16 Hospitalization History Stroke 05/03/2017 Hospitalization History stroke 08/24/2017--09/01/2017
--- OUTSIDE RECORDS SUMMARY | 2018-06-12 16:08 | XMS REPORT ---
Author Author LORI SNOWDEN Organization [facility] Address [address] [place] [address] Care Team Providers Care [employer]ator Name Role Phone LORI SNOWDEN Unavailable PROBLEMS Type Condition ICD9-CM Code OAU73-YJ Code Onset Dates Condition Status SNOMED Code Problem Chronic obstructive pulmonary disease, unspecified J44.9 Active [id number] Problem Other snf (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 Active 641991594 Problem Obstructive sleep apnea G47.33 Active 82901472 Problem Anxiety F41.9 Active 46708249 Problem ADHD (attention deficit hyperactivity disorder), combined type F90.2 Active 40950278 Problem Gastroesophageal reflux disease with esophagitis K21.0 Active 832073971 Problem Generalized anxiety disorder F41.1 Active 03727130 Problem Sleep apnea in adult G47.30 Active 81608328 Problem Cerebrovascular accident (CVA), unspecified mechanism I63.9 Active 860272960 Problem Rheumatoid arthritis involving multiple sites, unspecified rheumatoid factor presence M06.9 Active 060127333 Problem Dysthymic disorder F34.1 Active 17761033 Problem Chronic pain syndrome G89.4 Active 333541663 Problem Asthma J45.909 Active 007813042 Problem Weight gain R63.5 Active 5278586 Problem Rheumatoid arthritis M06.9 Active 56331967 Problem Arteriosclerotic coronary artery disease I25.10 Active 62647787 Problem Hyperinsulinemia E16.1 Active 02747399 Problem Hypertension I10 Active 35029926 Problem Neuropathy G62.9 Active 582985043 Problem Mixed hyperlipidemia E78.2 Active 436786755 Problem Other insomnia G47.09 Active [id number] ALLERGIES No Information ENCOUNTERS Encounter Location Date Diagnosis [facility] [address] [facility] [id number] [address] Jan, [facility] [id number] [place] [address] 44249- 1912 Dec, [facility] [id number] [place] [address] 78363- 1981 Dec, [facility] [id number] [place] [address] 15172- 8142 Dec, [facility] [id number] [place] [address] 133414- 1193 Nov, Dysthymic disorder F34.1 [facility] [id number] [place] [address] 20872- 0594 Oct, [facility] [id number] [place] [address] 187893- 8022 Oct, [facility] [id number] [place] [address] 61241- 4442 Oct, [facility] [id number] [place] [address] 02243- 3139 Oct, Diarrhea, unspecified type R19.7 and Dysuria R30.0 [facility] [id number] [place] [address] 77392- 0750 Oct, [facility] [id number] [place] [address] 01465- 7445 Sep, [facility] [id number] [place] [address] 06368- 3731 Sep, [facility] [id number] [place] [address] 307811- 0165 Sep, Anxiety F41.9 [facility] [id number] [place] [address] 12356- 9063 Sep, Cerebrovascular accident (CVA), unspecified mechanism I63.9 ; Mixed hyperlipidemia E78.2 ; Gastroesophageal reflux disease with esophagitis K21.0 and Anxiety F41.9 [facility] [id number] [place] [address] 98956- 1351 Sep, [place] [id number] [place] [address] 46077- 8661 Aug, Chronic obstructive pulmonary disease, unspecified J44.9 ; Asthma J45.909 ; Nausea R11.0 ; Dysthymic disorder F34.1 ; Cerebrovascular accident (CVA), unspecified mechanism I63.9 and Rheumatoid arthritis M06.9 [place] [address] 01940- 0414 Aug, Nausea R11.0 ; Encounter for immunization Z23 ; Sleep apnea in adult G47.30 ; Rheumatoid arthritis involving multiple sites, unspecified rheumatoid factor presence M06.9 ; Generalized anxiety disorder F41.1 ; Dysthymic disorder F34.1 and Asthma J45.909 [place] [address] 19741- 8217 Jul, [address] 48054- 6598 May, ADHD (attention deficit hyperactivity disorder), combined type F90.2 ; Generalized anxiety disorder F41.1 and Persistent depressive disorder F34.1 [place] [address] 27887- 5026 May, Cerebrovascular accident (CVA), unspecified mechanism I63.9 [place] [address] 60445- 9523 Apr, Mixed hyperlipidemia E78.2 and Cerebrovascular accident (CVA ), unspecified mechanism I63.9 [place] [id number] [place] [address] 75968- 7860 Apr, Generalized anxiety disorder F41.1 [place] [address] 29643- 2830 Apr, Bronchitis J40 and Tobacco use Z72.0 [place] [address] 42538- 0399 Apr, Mixed hyperlipidemia E78.2 [place] [address] [place] [address]- 2302 Apr, 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 accountant (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 [place] [id number] [place] [address] 23975- 7443 Apr, [facility] [id number] [place] [address] 33407- 2936 Apr, Generalized anxiety disorder F41.1 [place] [address] 69056- 4941 Apr, Obstructive sleep apnea G47.33 and Hyperinsulinemia E16.1 [place] [address] 26907- 8816 Apr, ADHD (attention deficit hyperactivity disorder), combined type F90.2 ; Generalized anxiety disorder F41.1 and Persistent depressive disorder F34.1 [place] [id number] [place] [address] 54776- 7602 Mar, [place] [id number] [place] [address] 05354- 7998 Mar, Generalized anxiety disorder F41.1 [place] [id number] [place] [address] 94746- 2233 Mar, Tarsal tunnel syndrome of both lower extremities G57.53 [place] [id number] [place] [address] 78880- 3562 February, [place] [id number] [place] [address] 02678- 5722 February, [facility] [id number] [place] [address] 80042- 9812 February, Asthma J45.909 [place] [id number] [place] [address] 79385- 3835 February, Generalized anxiety disorder F41.1 [facility] [id number] [place] [address] 79138- 0521 17 May, 2017 Hypoxemia R09.02 ; Hyperglycemia R73.9 ; Rheumatoid arthritis M06.9 and Generalized anxiety disorder F41.1 [place] [id number] [place] [address] 15207- 8334 February, [place] [address] 83356- 0269 Jan, Chronic obstructive pulmonary disease, unspecified J44.9 [place] [address] 57961- 6207 Jan, Chronic pain syndrome G89.4 [place] [address] 63886- 9087 Jan, Hypoxemia R09.02 [place] [address] 57649- 9373 Jan, [place] [address] 30759- 2149 Jan, Chronic obstructive pulmonary disease, unspecified J44.9 ; Hypoxemia R09.02 ; Other insomnia G47.09 and Left anterior shoulder pain M25.512 [place] [address] 33412- 5222 Jan, Numbness in feet R20.0 and Neuropathy G62.9 [place] [id number] [place] [address] 22944- 0134 Jan, [place] [address] 93334- 2590 Dec, Acute pain of left shoulder M25.512 [place] [id number] [place] [address] 30410- 8162 Dec, Acute pain of left shoulder M25.512 [place] [address] 16078- 6677 Dec, Generalized anxiety disorder F41.1 [place] [address] 52847- 9606 Dec, Generalized anxiety disorder F41.1 [facility] [id number] [place] [address] 44348- 5300 Nov, ADHD (attention deficit hyperactivity disorder), combined type F90.2 ; Generalized anxiety disorder F41.1 and Persistent depressive disorder F34.1 [facility] [id number] [place] [address] 94100- 6861 Nov, Acute pain of left shoulder M25.512 [facility] [id number] [place] [address] 00564- 9331 Nov, ADHD (attention deficit hyperactivity disorder), combined type F90.2 ; Generalized anxiety disorder F41.1 and Persistent depressive disorder F34.1 [facility] [id number] [place] [address] 49932- 1441 Nov, Chronic pain syndrome G89.4 [facility] [id number] [place] [address] 40227- 7838 Nov, Chronic pain syndrome G89.4 [facility] [id number] [place] [address] 41779- 9010 Nov, Acute pain of left shoulder M25.512 [facility] [id number] [place] [address] 93177- 8331 Nov, Generalized anxiety disorder F41.1 [facility] [id number] [place] [address] 24643- 4365 Nov, Acute pain of left shoulder M25.512 [facility] [id number] [place] [address] 30870- 6508 Nov, ADHD (attention deficit hyperactivity disorder), combined type F90.2 ; Generalized anxiety disorder F41.1 and Persistent depressive disorder F34.1 [facility] [address] [address]- 0310 Nov, Acute pain of left shoulder M25.512 ; Generalized anxiety disorder F41.1 ; Chronic pain syndrome G89.4 ; Hyperinsulinemia E16.1 ; Pain of left foot M79.672 and Pain in right foot M79.671 [place] [id number] [place] [address] 38173- 1972 Oct, ADHD (attention deficit hyperactivity disorder), combined type F90.2 ; Generalized anxiety disorder F41.1 and Dysthymic disorder F34.1 [place] [id number] [place] [address] 97957- 2879 Sep, [place] [id number] [place] [address] 00987- 2469 Sep, [place] [id number] [place] [address] 61255- 3640 Sep, Routine gynecological examination V72.31 ; Cervical cancer screening Z12.4 ; Breast cancer screening Z12.39 ; Colon cancer screening Z12.11 ; Hypokalemia E87.6 ; Herpes simplex type 1 infection B00.9 and Abscess of right axilla L02.411 [place] [id number] [place] [address] 56493- 9539 Sep, [place] [id number] [place] [address] 15061- 2501 Sep, ADHD (attention deficit hyperactivity disorder), combined type F90.2 ; Generalized anxiety disorder F41.1 and Dysthymic disorder F34.1 [place] [id number] [place] [address] 05788- 7109 Aug, [place] [id number] [place] [address] 45140- 8707 Aug, [place] [id number] [place] [address] 80975- 5538 Aug, Generalized anxiety disorder F41.1 [place] [id number] [place] [address] 45047- 9906 Aug, ADHD (attention deficit hyperactivity disorder), combined type F90.2 ; Generalized anxiety disorder F41.1 and Dysthymic disorder F34.1 [place] [id number] [place] [address] 89178- 7441 Jul, Chronic pain syndrome G89.4 ; Hypertension I10 ; Hypokalemia E87.6 ; Asthma J45.909 and Nausea R11.0 [place] [id number] [place] [address] 50633- 3065 Jul, [place] [address] 79249- 5588 Jul, Asthma J45.909 [place] [address] 50729- 5271 Jul, ADHD (attention deficit hyperactivity disorder), combined type F90.2 ; Generalized anxiety disorder F41.1 and Dysthymic disorder F34.1 [place] [address] 03910- 2067 Jul, [place] [address] 50651- 3677 Jul, Hypertension I10 ; Arteriosclerotic coronary artery disease I25.10 ; Mixed hyperlipidemia E78.2 ; 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 accountant (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 and Hyperglycemia R73.9 [place] [id number] [place] [address] 74914- 4081 16 Jun, 2016 Hypokalemia E87.6 and Hyperglycemia R73.9 [place] [id number] [place] [address] 84620- 7821 14 Jun, 2016 [place] [id number] [place] [address] 73341- 3349 13 Jun, 2016 Abnormal kidney function N28.9 [place] [id number] [place] [address] 88375- 8520 09 Jun, 2016 [place] [id number] [place] [address] 94768- 0402 Jun, ADHD (attention deficit hyperactivity disorder), combined type F90.2 ; Generalized anxiety disorder F41.1 and Dysthymic disorder F34.1 [place] [address] 54912- 2220 Jun, Generalized anxiety disorder F41.1 and Dysthymic disorder F34.1 [place] [address] 368757- 8605 Jun, Hypokalemia E87.6 [place] [address] 65347- 3440 May, Hypokalemia E87.6 ; Vertigo R42 and Hyperinsulinemia E16.1 [place] [address] 66850- 7462 May, [place] [address] 23837- 1013 May, Abnormal kidney function N28.9 ; Hyperinsulinemia E16.1 and Nausea R11.0 [place] [address] 80872- 3902 May, Hypokalemia E87.6 ; Nausea R11.0 ; Epigastric pain R10.13 ; Dehydration E86.0 ; Diaphoresis R61 and Right arm pain M79.601 [place] [address] 22637- 3285 May, [place] [address] 50384- 0330 May, Hypokalemia E87.6 [place] [address] 21419- 5997 May, Hypokalemia E87.6 [place] [address] 61550- 5008 Apr, [place] [address] 44543- 5659 Apr, ADHD (attention deficit hyperactivity disorder), combined type F90.2 ; Generalized anxiety disorder F41.1 and Dysthymic disorder F34.1 [place] [address] [place] [address] 97998- 5523 Apr, Right arm pain M79.601 and Hyperinsulinemia E16.1 [place] [id number] [place] [address] 65440- 6115 Mar, [place] [id number] [place] [address] 46769- 7894 Mar, [place] [id number] [place] [address] 39859- 0958 Mar, Hyperinsulinemia E16.1 ; Hyperlipidemia, unspecified hyperlipidemia type E78.5 ; Central venous catheter in place Z78.9 ; Generalized anxiety disorder F41.1 and Urinary tract infection, site not specified N39.0 [place] [id number] [place] [address] 11858- 9523 Mar, ADHD (attention deficit hyperactivity disorder), combined type F90.2 ; Generalized anxiety disorder F41.1 and Dysthymic disorder F34.1 [place] [id number] [place] [address] 32164- 4783 February, ADHD (attention deficit hyperactivity disorder), combined type F90.2 ; Generalized anxiety disorder F41.1 and Dysthymic disorder F34.1 [place] [address] [place] [address] 65124- 4642 February, [place] [id number] [place] [address] 93203- 8289 February, [place] [id number] [place] [address] 59402- 8161 February, Hypertension I10 and Weight gain R63.5 [place] [id number] [place] [address] 61420- 9567 February, Major depressive disorder, recurrent, moderate F33.1 and Generalized anxiety disorder F41.1 [place] [address] [address]- 9710 February, ADHD (attention deficit hyperactivity disorder), combined type F90.2 ; Generalized anxiety disorder F41.1 and Dysthymic disorder F34.1 [facility] [address] [place] [address] 89310- 0973 February, [facility] [id number] [place] [address] 12995- 7548 February, Asthma J45.909 ; Weight gain R63.5 ; Hypertension I10 ; Rheumatoid arthritis M06.9 and Chronic pain syndrome G89.4 [place] [id number] [place] [address] 77004- 0534 Jan, ADHD (attention deficit hyperactivity disorder), combined type F90.2 ; Generalized anxiety disorder F41.1 and Dysthymic disorder F34.1 [facility] [id number] [place] [address] 89342- 9637 Dec, ADHD (attention deficit hyperactivity disorder), combined type F90.2 ; Generalized anxiety disorder F41.1 and Dysthymic disorder F34.1 [place] [id number] [place] [address] 61980- 0694 Dec, [facility] [address] [place] [address] 70406- 6412 Nov, [facility] [address] [address]- 5910 Nov, [facility] [address] [address]- 0742 Nov, [facility] [id number] [place] [address] 49584- 0454 Nov, [facility] [address] [address]- 3093 Oct, [facility] [id number] [place] [address] 87229- 2954 Oct, [facility] [address] [address]- 0892 Oct, [facility] [address] [address]- 8516 Sep, [facility] [address] [address]- 5009 Sep, [facility] [id number] [place] [address] 25052- 4104 Sep, Agoraphobia with panic disorder F40.01 ; Attention-deficit hyperactivity disorder, combined type F90.2 and Dysthymic disorder F34.1 [facility] [id number] [place] [address] 90291- 7940 Aug, [facility] [id number] [address]- 6146 Aug, [facility] [id number] [place] [address] 54556- 7164 Aug, [facility] [id number] [place] [address] 18668- 4179 Aug, Dysthymic disorder F34.1 ; Generalized anxiety disorder F41.1 and ADHD (attention deficit hyperactivity disorder), combined type F90.2 [facility] [address] [address]- 0824 Aug, ADHD (attention deficit hyperactivity disorder), combined type F90.2 ; Generalized anxiety disorder F41.1 and Dysthymic disorder F34.1 [facility] [address] [address]- 7686 Jul, Urinary tract infection, site not specified N39.0 ; Hypotension, unspecified I95.9 and Breast cancer screening Z12.39 [facility] [address] [address]- 6306 Jul, [facility] [id number] [place] [address] 22268- 5399 Jul, [facility] [address] [place] [address] 76207- 7519 Jul, Urinary tract infection, site not specified N39.0 ; Nausea R11.0 ; Gastroenteritis K52.9 ; Renal failure N19 and Other hypotension I95.89 [facility] [id number] [place] [address] 31739- 8548 Jul, [facility] [id number] [place] [address] 89293- 3979 Jul, [facility] [id number] [place] [address] 57139- 4451 Jul, [facility] [id number] [place] [address] 85845- 5988 Jun, [place] [id number] [place] [address] 37902- 4717 Jun, Major depression in partial remission 296.25 ; Generalized anxiety disorder 300.02 and ADHD, predominantly inattentive type 314.[address] [id number] [place] [address] 06807- 9589 May, [place] [id number] [place] [address] 55133- 7473 Apr, Major depressive disorder, recurrent episode, severe, without mention of psychotic behavior 296.33 ; Agoraphobia with panic disorder 300.21 and Generalized anxiety disorder 300.02 [place] [id number] [place] [address] 62555- 5573 Apr, ADHD (attention deficit hyperactivity disorder), combined type 314.01 ; Generalized anxiety disorder 300.02 and Dysthymic disorder 300.4 [place] [id number] [place] [address] 87939- 0772 Apr, CAD (coronary artery disease) 414.00 ; HTN (hypertension) 401.9 and Tobacco use 305.1 [place] [id number] [place] [address] 38435- 5881 Apr, [facility] [id number] [place] [address] 44552- 1857 Mar, ADHD (attention deficit hyperactivity disorder), combined type 314.01 ; Generalized anxiety disorder 300.02 ; Dysthymic disorder 300.4 ; No condition on [place] II V71.09 ; Rheumatoid arthritis 714.0 ; Incontinence 788.30 ; Irritable bowel syndrome 564.1 ; Osteoporosis 733.00 and Chronic pain 338.29 [facility] [id number] [place] [address] 23128- 4281 Mar, Agoraphobia with panic disorder 300.21 and Major depressive disorder, recurrent episode, moderate 296.32 [facility] [id number] [place] [address] 02695- 6381 Mar, [facility] [id number] [place] [address] 64929- 5233 February, [facility] [id number] [place] [address] 21332- 2258 February, Agoraphobia with panic disorder 300.21 and Major depressive disorder, recurrent episode, moderate 296.32 [facility] [id number] [place] [address] 51194- 0000 February, [facility] [id number] [place] [address] 25132- 3439 Jan, [facility] [id number] [place] [address] 69009- 7211 Jan, [facility] [id number] [place] [address]- 0028 Dec, [facility] [address] [address] Dec, [facility] [id number] [place] [address] 46[address]- 6855 Dec, [facility] [address] [id number]- [address] Dec, [facility] [place] [facility] [address] [id number] [place] [address] Dec, [facility] [place] [facility] [address] [id number] [place] [address] Dec, [facility] [place] [facility] [address] [facility] [id number] [place] [address] Nov, 2014 [facility] [place] [facility] [address] [id number] [place] [address] Nov, 2014 [facility] [place] [facility] [address] [id number] [place] [address] Nov, 2014 [facility] [place] [facility] [address] [id number] [place] [address] Nov, 2014 [facility] [place] [facility] [address] [facility] [id number] [place] [address] Nov, [facility] [place] [facility] [address] [id number] [place] [address] Nov, [facility] [place] [facility] [address] [id number] [place] [address] Nov, [facility] [place] [facility] [address] [facility] [id number] [place] [address] Nov, [facility] [place] [facility] [address] [facility] [id number] [place] [address] Oct, [facility] [place] [facility] [address] [id number] [place] [address] Oct, [facility] [place] [facility] [address] [id number] [place] [address] Oct, [facility] [place] [facility] [address] [facility] [id number] [place] [address] Oct, [facility] [place] [facility] [address] [facility] [id number] [place] [address] Oct, [facility] [place] [facility] [address] [id number] [place] [address] 3[address] Oct, [facility] [place] [facility] [address] [id number] [place] [address] Sep, [facility] [place] [facility] [address] [id number] [place] [address] Sep, [facility] [place] [facility] [address] [id number] [place] [address] 4768 Sep, [facility] [place] [facility] [address] [id number] [place] [address] Sep, [facility] [place] [facility] [address] [id number] [place] [address] 6499 Sep, [facility] [place] [facility] [address] [id number] [place] [address]- 8954 Sep, [facility] [place] [facility] [address] [id number] [place] [address] 1151 Sep, [facility] [place] [facility] [address] [id number] [place] [address] 0255 Aug, [facility] [place] [facility] [address] [id number] [place] [address] 4[address] Aug, [facility] [place] [facility] [address] [id number] [place] [address] 4884 Aug, [facility] [place] [facility] [address] [id number] [place] [address] 1898 Aug, [facility] [place] [facility] [address] [id number] [place] [address]- 7571 Aug, [facility] [place] [facility] [address] [id number] [place] [address] 2904 Aug, [facility] [place] [facility] [address] [id number] [place] [address] 17 Jul, 2014 [facility] [place] [facility] [address] [id number] [place] [address]- 6846 Jul, [facility] [place] [facility] [address] [id number] [place] [address]- 1254 Jul, [facility] [place] [facility] [address] [id number] [place] [address]- 7116 Jul, [facility] [place] [facility] [address] [id number] [place] [address]- 4348 Jul, [facility] [place] [facility] [address] [id number] [place] [address]- 9904 Jul, [facility] [place] [facility] [address] [id number] [place] [address]- 0225 Jun, [facility] [place] [facility] [address] [id number] [place] [address]- 4589 Jun, [facility] [place] [facility] [address] [id number] [place] [address] 3487 May, [facility] [place] [facility] [address] [id number] [place] [address]- 2175 May, [facility] [place] [facility] [address] [id number] [place] [address]- 3[address] Apr, [facility] [place] [facility] [address] [id number] [place] [address]- 8435 Apr, [facility] [place] [facility] [address] [id number] [place] [address]- 9749 Apr, [facility] [place] [facility] [address] [id number] [place] [address] Apr, [facility] [place] [facility] [address] [id number] [place] [address] 30[address] Mar, [facility] [place] [facility] [address] [id number] [place] [address]- 4[address] Mar, [facility] [place] [facility] [address] [id number] [place] [address]- 2012 Mar, [facility] [place] [facility] [address] [id number] [place] [address] Mar, [facility] [address] [id number] [place] [address] February, [facility] [address] [id number] [place] [address] February, [facility] [address] [id number] [place] [address] February, [facility] [address] [id number] [place] [address] February, [facility] [address] [id number] [place] [address] 7851 February, [facility] [address] [id number] [place] [address] 59[address] February, [facility] [address] [id number] [place] [address]- 8[address] Jan, [facility] [address] [id number] [place] [address]- 5121 Jan, [facility] [address] [id number] [place] [address]- 8699 Dec, [facility] [address] [id number] [place] [address]- [address]304 Dec, [facility] [place] [facility] [address] [id number] [place] [address] 77[address] Nov, [facility] [place] [facility] [address] [id number] [place] [address]- 1237 Nov, [facility] [place] [facility] [address] [id number] [place] [address]- 7786 Oct, [facility] [place] [facility] [address] [id number] [place] [address]- 4436 Oct, [facility] [place] [facility] [address] [id number] [place] [address]- 7572 Oct, [facility] [address] [id number] [place] [address]- 2861 Oct, [facility] [place] [facility] [address] [id number] [place] [address]- 0554 Sep, [facility] [place] [facility] [address] [id number] [place] [address]- 5977 Sep, [facility] [place] [facility] [address] [id number] [place] [address]- 6612 Sep, [facility] [place] [facility] [address] [id number] [place] [address]- 4430 Sep, [facility] [place] [facility] [address] [id number] [place] [address]- 1287 Sep, [facility] [place] [facility] [address] [id number] [place] [address]- 0446 Sep, [facility] [place] [facility] [address] [id number] [place] [address]- 5433 Sep, [facility] [place] [facility] [address] [id number] [place] [address]- 1700 Sep, [facility] [place] [facility] [address] [id number] [place] [address]- 5206 Aug, [facility] [place] [facility] [address] [id number] [place] [address]- 6477 Aug, [facility] [place] [facility] [address] [id number] [place] [address]- [address] Aug, [facility] [place] [facility] [address] [id number] [place] [address]- 4910 Aug, [facility] [place] [facility] [address] [id number] [place] [address]- 2306 Aug, [facility] [place] [facility] [address] [id number] [place] [address]- 3188 Aug, [facility] [place] [facility] [address] [id number] [place] [address] 2540 Aug, [facility] [address] [id number] [place] [address]- 5695 Aug, [facility] [place] [facility] [address] [id number] [place] [address]- 4295 Aug, [facility] [address] [id number] [place] [address] 2545 Jul, [facility] [place] [facility] [address] [id number] [place] [address]- 4403 Jun, [facility] [address] [id number] [place] [address]- 1420 May, [facility] [place] [facility] [address] [id number] [place] [address]- 9926 May, [facility] [address] [id number] [place] [address]- 9814 May, [facility] [address] [id number] [place] [address]- 9756 Apr, [facility] [address] [id number] [place] [address]- 0037 Mar, [facility] [address] [id number] [place] [address]- 9720 February, [facility] [address] [id number] [place] [address]- 9619 Oct, [facility] [place] [facility] [address] [id number] [place] [address]- 8526 Oct, [facility] [place] [facility] [address] [id number] [place] [address]- 8657 Oct, [facility] [place] [facility] [address] [id number] [place] [address]- 5938 Oct, [facility] [place] [facility] [address] [id number] [place] [address]- 3769 Oct, [facility] [place] [facility] [address] [id number] [place] [address]- 8798 Oct, [facility] [place] [facility] [address] [id number] [place] [address]- 9096 Sep, [facility] [place] [facility] [address] [id number] [place] [address]- 4806 Sep, [facility] [place] [facility] [address] [id number] [place] [address]- 1487 Aug, [facility] [place] [facility] [address] [id number] [place] [address]- 9460 Aug, [facility] [place] [facility] [address] [id number] [place] [address] Jul, [facility] [place] [facility] [address] [id number] [place] [address] Jul, [facility] [place] [facility] [address] [id number] [place] [address]- 1687 Jul, [facility] [place] [facility] [address] [id number] [place] [address]- 1505 Jul, [facility] [place] [facility] [address] [id number] [place] [address]- 3243 Jul, [facility] [place] [facility] [address] [id number] [place] [address]- 1237 Jul, [facility] [place] [facility] [address] [id number] [place] [address]- 7645 Jul, [facility] [place] [facility] [address] [id number] [place] [address]- 1827 Jul, [facility] [place] [facility] [address] [id number] [place] [address]- 2426 16 Jun, 2012 [facility] [place] [facility] [address] [id number] [place] [address]- 2976 03 Jun, 2012 [facility] [place] [facility] [address] [id number] [place] [address]- 1496 May, [facility] [place] [facility] [address] [id number] [place] [address]- 6371 Apr, [facility] [place] [facility] [address] [id number] [place] [address]- 3752 Mar, [facility] [place] [facility] [address] [id number] [place] [address]- 7445 Mar, [facility] [place] [facility] [address] [id number] [place] [address]- 1180 Mar, [facility] [place] [facility] [address] [id number] [place] [address]- 0907 Mar, [facility] [place] [facility] [address] [id number] [place] [address]- 4581 Jan, [facility] [place] [facility] [address] [id number] [place] [address]- 9927 Nov, [facility] [place] [facility] [address] [id number] [place] [address]- 3390 Nov, [facility] [place] [facility] [address] [id number] [place] [address]- 4922 Nov, [facility] [place] [facility] [address] [id number] [place] [address]- 9169 Oct, [facility] [place] [facility] [address] [id number] [place] [address]- 5765 Sep, [facility] [place] [facility] [address] [id number] [place] [address]- 6699 Sep, [facility] [place] [facility] [address] [id number] [place] [address]- 6946 Aug, [facility] [place] [facility] [address] [id number] [place] [address]- 5205 Aug, [facility] [place] [facility] [address] [id number] [place] [address]- 0171 Aug, [facility] [place] [facility] [id number] [place] [address]- 2546 Aug, [facility] [id number] [address]- 2826 Jul, [facility] [id number] [address]- 2546 May, [facility] [id number] [place] [address]- 8816 Jan, [facility] [id number] [place] [address] 632[address]- 3516 Nov, [facility] [id number] [place] [address]84[address]- 7036 Apr, [facility] [id number] [address]- 1666 Dec, [facility] [id number] [place] [address]- 2046 Nov, IMMUNIZATIONS No Known Immunizations SOCIAL HISTORY Never Assessed REASON FOR VISIT Refill Gabapentin at increased dose PLAN OF CARE VITAL SIGNS MEDICATIONS Medication Instructions Dosage Frequency Start Date End Date Duration Status Gabapentin 600 MG Orally Three times a day 1 capsule 8h Nov, 30 day(s) Active RESULTS No Results PROCEDURES No Known procedures INSTRUCTIONS MEDICATIONS ADMINISTERED No Known Medications MEDICAL (GENERAL) HISTORY Type Description Date Medical History Cardiovascular qzoohxtw-PDB-Uimixski, 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 Mendoza Medical History Stress test 03/07/13-Dr. Kelly Dietrich normal Medical History Hypertension Medical History Asthma Medical History Gastrointestinal Disorder--IBS, GERD, Hx of fatty liver Medical History Hernia 1979 Medical History Cervical dysplasia 02/16-Pap LGSIL/[place]-mild dysplasia Medical History Hyperlipidemia Medical History Rheumatoid [...] 06/2015 Surgical History Otolaryngologic surgery ear surgery 1976 Surgical History Tongue biopsy Herpes I & II No dysplasia 03/2012 Surgical History Tonsillectomy Surgical History Tubal ligation 1984 Surgical History Interstim in the bladder 06/18/2015 Surgical History Port Removed 03/2016 Surgical History left shoulder march 2017 Hospitalization History surgeries Hospitalization History Gastroenteritis/acute Kidney injury 07/10/15-07/11/2015 Hospitalization History Symptomatic Hypokalemia/Nause-Via [facility] 05/13/16 Hospitalization History Stroke 05/03/2017 Hospitalization History stroke 08/24/2017--09/01/2017
--- OUTSIDE RECORDS SUMMARY | 2018-06-12 16:09 | XMS REPORT ---
Author Author LORI SNOWDEN Organization [facility] Address [address] [place] [address] Care Team Providers Care Dross Skimmer Name Role Phone LORI SNOWDEN Unavailable PROBLEMS Type Condition ICD9-CM Code ILO30-OL Code Onset Dates Condition Status SNOMED Code Problem ADHD (attention deficit hyperactivity disorder), combined type F90.2 Active 25179371 Problem Other residential (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 Active 435514806 Problem Generalized anxiety disorder F41.1 Active 17040092 Problem Cerebrovascular accident (CVA), unspecified mechanism I63.9 Active 061832844 Problem Asthma J45.909 Active 386799414 Problem Dysthymic disorder F34.1 Active 37918751 Problem Rheumatoid arthritis involving multiple sites, unspecified rheumatoid factor presence M06.9 Active 276403299 Problem Sleep apnea in adult G47.30 Active 83576622 Problem Seasonal allergies J30.2 Active 480040154 Problem Mild episode of recurrent major depressive disorder F33.0 Active 403738287 Problem Rheumatoid arthritis M06.9 Active 48124835 Problem Chronic pain syndrome G89.4 Active 237728405 Problem Hypertension I10 Active 87671246 Problem Anxiety F41.9 Active 45232832 Problem Gastroesophageal reflux disease with esophagitis K21.0 Active 049014381 Problem Panic attacks F41.0 Active 298628305 Problem Irritable bowel syndrome with diarrhea K58.0 Active 973857036 Problem Mixed hyperlipidemia E78.2 Active 306823920 Problem Hyperinsulinemia E16.1 Active 99538918 Problem Weight gain R63.5 Active 7454921 Problem Arteriosclerotic coronary artery disease I25.10 Active 89398827 Problem Chronic obstructive pulmonary disease, unspecified J44.9 Active [id number] Problem Obstructive sleep apnea G47.33 Active 27846245 Problem Neuropathy G62.9 Active 650322288 Problem Other insomnia G47.09 Active 231277086 ALLERGIES No Information ENCOUNTERS Encounter Location Date Diagnosis [facility] [id number] [place] [address] 72568- 5436 May, [facility] [id number] [place] [address] 05608- 1499 Mar, Mild episode of recurrent major depressive disorder F33.0 [facility] [address] 48595- 1604 Mar, Mild episode of recurrent major depressive disorder F33.0 and Generalized anxiety disorder F41.1 [facility] [address] 77476- 7259 Mar, Seasonal allergies J30.2 [facility] [address] 41342- 6664 Mar, Seasonal allergies J30.2 [facility] [address] 57477- 0694 February, Generalized anxiety disorder F41.1 [facility] [id number] [place] [address] 80881 -6351 February, Cough R05 and Seasonal allergies J30.2 [facility] [id number] [place] [address] 14037- 7057 February, Generalized anxiety disorder F41.1 and Mild episode of recurrent major depressive disorder F33.0 [facility] [id number] [place] [address] 71533- 6813 February, Other residential (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 ; Anxiety F41.9 ; Panic attacks F41.0 and Irritable bowel syndrome with diarrhea K58.0 [facility] [id number] [place] [address] 27674- 5312 February, [facility] [id number] [place] [address] 76715- 4899 Jan, Mixed hyperlipidemia E78.2 [facility] [address] 70662- 3467 Jan, [facility] [address] [address] 1085 Jan, [facility] [id number] [place] [address], [place] [address]- 3996 Jan, [facility] [id number] [address]- 3139 Jan, [facility] [id number] [place] [address], [place] [address]- 7359 Dec, [facility] [id number] [place] [address], [place] [address]- 0499 Dec, [facility] [id number] [place] [address] 19330- 4059 Dec, [facility] [id number] [place] [address] 362511- 9802 Nov, Dysthymic disorder F34.1 [facility] [address] [address]- 5405 Oct, [facility] [id number] [place] [address] 069817- 5786 Oct, [facility] [address] [address]- 9181 Oct, [facility] [id number] [place] [address] 50957- 7306 Oct, Diarrhea, unspecified type R19.7 and Dysuria R30.0 [facility] [address] [address]- 3717 Oct, [facility] [id number] 8[address] Sep, [facility] [address] [address] Sep, [facility] [id number] [place] [address] 00205- 7180 Sep, Anxiety F41.9 [place] [id number] [place] [address] 37904- 0887 Sep, Cerebrovascular accident (CVA), unspecified mechanism I63.9 ; Mixed hyperlipidemia E78.2 ; Gastroesophageal reflux disease with esophagitis K21.0 and Anxiety F41.9 [id number] [place] [address] 68113- 7521 Sep, [id number] [place] [address] 11819- 8137 Aug, Chronic obstructive pulmonary disease, unspecified J44.9 ; Asthma J45.909 ; Nausea R11.0 ; Dysthymic disorder F34.1 ; Cerebrovascular accident (CVA), unspecified mechanism I63.9 and Rheumatoid arthritis M06.9 [id number] [place] [address] 57400- 6526 Aug, Nausea R11.0 ; Encounter for immunization Z23 ; Sleep apnea in adult G47.30 ; Rheumatoid arthritis involving multiple sites, unspecified rheumatoid factor presence M06.9 ; Generalized anxiety disorder F41.1 ; Dysthymic disorder F34.1 and Asthma J45.909 [place] [id number] [place] [address] 69910- 5529 Jul, [id number] [place] [address] 45153- 7009 May, ADHD (attention deficit hyperactivity disorder), combined type F90.2 ; Generalized anxiety disorder F41.1 and Persistent depressive disorder F34.1 [id number] [place] [address] 87051- 5239 May, Cerebrovascular accident (CVA), unspecified mechanism I63.9 [id number] [place] [address] 09940- 7456 Apr, Mixed hyperlipidemia E78.2 and Cerebrovascular accident (CVA ), unspecified mechanism I63.9 [address] [id number] [place] [address] 05613- 1642 Apr, Generalized anxiety disorder F41.1 [place] [address] 82086- 4191 Apr, Bronchitis J40 and Tobacco use Z72.0 [place] [address] 14311- 4432 Apr, Mixed hyperlipidemia E78.2 [facility] [address] 85220- 5523 Apr, Other residential (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 [place] [address] 03120- 8725 Apr, [place] [address] 49262- 3826 Apr, Generalized anxiety disorder F41.1 [place] [address] 53547- 8272 Apr, Obstructive sleep apnea G47.33 and Hyperinsulinemia E16.1 [place] [address] 53008- 3292 Apr, ADHD (attention deficit hyperactivity disorder), combined type F90.2 ; Generalized anxiety disorder F41.1 and Persistent depressive disorder F34.1 [place] [id number] [place] [address] 92955- 1081 Mar, [place] [id number] [place] [address] 53489- 0070 Mar, Generalized anxiety disorder F41.1 [place] [address] 51439- 3933 Mar, Tarsal tunnel syndrome of both lower extremities G57.53 [place] [id number] [place] [address] 80559- 8700 February, [facility] [address] 96966- 0269 February, [facility] [address] [address]- 1347 February, Asthma J45.909 [facility] [id number] [place] [address] 35352- 0404 February, Generalized anxiety disorder F41.1 [facility] [id number] [place] [address] 01094- 3202 February, Hypoxemia R09.02 ; Hyperglycemia R73.9 ; Rheumatoid arthritis M06.9 and Generalized anxiety disorder F41.1 [place] [id number] [place] [address] 75238- 1661 February, [facility] [id number] [place] [address] 75512- 6498 Jan, Chronic obstructive pulmonary disease, unspecified J44.9 [place] [id number] [place] [address] 45892- 9463 Jan, Chronic pain syndrome G89.4 [place] [id number] [place] [address] 58117- 9879 Jan, Hypoxemia R09.02 [facility] [id number] [place] [address] 02949- 0998 Jan, [place] [id number] [place] [address] 94873- 8538 Jan, Chronic obstructive pulmonary disease, unspecified J44.9 ; Hypoxemia R09.02 ; Other insomnia G47.09 and Left anterior shoulder pain M25.512 [place] [id number] [place] [address] 66476- 8140 Jan, Numbness in feet R20.0 and Neuropathy G62.9 [facility] [id number] [place] [address] 76847- 1460 Jan, [facility] [id number] [place] [address] 76600- 4226 Dec, Acute pain of left shoulder M25.512 [facility] [address] [address]- 5331 Dec, Acute pain of left shoulder M25.512 [facility] [id number] [place] [address] 30356- 2786 Dec, Generalized anxiety disorder F41.1 [facility] [id number] [place] [address] 53245- 4576 Dec, Generalized anxiety disorder F41.1 [facility] [id number] [place] [address] 06838- 6213 Nov, ADHD (attention deficit hyperactivity disorder), combined type F90.2 ; Generalized anxiety disorder F41.1 and Persistent depressive disorder F34.1 [facility] [id number] [place] [address] 44265- 0793 Nov, Acute pain of left shoulder M25.512 [facility] [id number] [place] [address] 28089- 4165 Nov, ADHD (attention deficit hyperactivity disorder), combined type F90.2 ; Generalized anxiety disorder F41.1 and Persistent depressive disorder F34.1 [facility] [id number] [place] [address] 22771- 4589 Nov, Chronic pain syndrome G89.4 [facility] [id number] [place] [address] 23066 2546 Nov, Chronic pain syndrome G89.4 [facility] [id number] [place] [address] 02273- 4185 08 Nov, 2016 Acute pain of left shoulder M25.512 [facility] [id number] [place] [address] 21138- 3969 Nov, Generalized anxiety disorder F41.1 [facility] [id number] [place] [address] 41821- 1285 Nov, Acute pain of left shoulder M25.512 [facility] [id number] [place] [address] 65614- 3167 Nov, ADHD (attention deficit hyperactivity disorder), combined type F90.2 ; Generalized anxiety disorder F41.1 and Persistent depressive disorder F34.1 [address] [place] [id number] [place] [address] 44147- 4672 Nov, Acute pain of left shoulder M25.512 ; Generalized anxiety disorder F41.1 ; Chronic pain syndrome G89.4 ; Hyperinsulinemia E16.1 ; Pain of left foot M79.672 and Pain in right foot M79.671 [place] [address] 68673- 7869 Oct, ADHD (attention deficit hyperactivity disorder), combined type F90.2 ; Generalized anxiety disorder F41.1 and Dysthymic disorder F34.1 [place] [id number] [place] [address] 74173- 0435 Sep, [place] [id number] [place] [address] 06668- 4302 Sep, [id number] [place] [address] 06262- 3937 Sep, Routine gynecological examination V72.31 ; Cervical cancer screening Z12.4 ; Breast cancer screening Z12.39 ; Colon cancer screening Z12.11 ; Hypokalemia E87.6 ; Herpes simplex type 1 infection B00.9 and Abscess of right axilla L02.411 [place] [id number] [place] [address] 69389- 2348 Sep, [place] [id number] [place] [address] 70038- 9516 Sep, ADHD (attention deficit hyperactivity disorder), combined type F90.2 ; Generalized anxiety disorder F41.1 and Dysthymic disorder F34.1 [place] [id number] [place] [address] 02146- 2126 Aug, [place] [id number] [place] [address] 67741- 2328 Aug, [place] [address] 83364- 9063 Aug, Generalized anxiety disorder F41.1 [place] [id number] [place] [address] 02222- 6328 Aug, ADHD (attention deficit hyperactivity disorder), combined type F90.2 ; Generalized anxiety disorder F41.1 and Dysthymic disorder F34.1 [place] [id number] [place] [address] 03955- 1370 Jul, Chronic pain syndrome G89.4 ; Hypertension I10 ; Hypokalemia E87.6 ; Asthma J45.909 and Nausea R11.0 [place] [id number] [place] [address] 90071- 8443 Jul, [place] [id number] [place] [address] 51041- 9439 Jul, Asthma J45.909 [place] [address] 18858- 2253 Jul, ADHD (attention deficit hyperactivity disorder), combined type F90.2 ; Generalized anxiety disorder F41.1 and Dysthymic disorder F34.1 [place] [id number] [place] [address] 50512- 7370 Jul, [place] [id number] [place] [address] 72382- 0116 Jul, Hypertension I10 ; Arteriosclerotic coronary artery disease I25.10 ; Mixed hyperlipidemia E78.2 ; Other manager long term care (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 and Hyperglycemia R73.9 [place] [id number] [place] [address] 29735- 5442 16 Jun, 2016 Hypokalemia E87.6 and Hyperglycemia R73.9 [place] [id number] [place] [address] 16157- 7776 14 Jun, 2016 [place] [id number] [place] [address] 93350- 0708 Jun, Abnormal kidney function N28.9 [place] [id number] [place] [address] 13420- 2296 Jun, [place] [address] 90210- 6997 Jun, ADHD (attention deficit hyperactivity disorder), combined type F90.2 ; Generalized anxiety disorder F41.1 and Dysthymic disorder F34.1 [place] [address] 357985- 4762 Jun, Generalized anxiety disorder F41.1 and Dysthymic disorder F34.1 [place] [address] 12016- 4354 Jun, Hypokalemia E87.6 [place] [address] 02729- 5159 May, Hypokalemia E87.6 ; Vertigo R42 and Hyperinsulinemia E16.[address] 66158- 4556 May, [place] [address] 55481- 3723 May, Abnormal kidney function N28.9 ; Hyperinsulinemia E16.1 and Nausea R11.0 [place] [id number] [place] [address] 69523- 7208 May, Hypokalemia E87.6 ; Nausea R11.0 ; Epigastric pain R10.13 ; Dehydration E86.0 ; Diaphoresis R61 and Right arm pain M79.601 [place] [id number] [place] [address] 32388- 6437 May, [place] [address] 91553- 7317 May, Hypokalemia E87.6 [facility] [address] [address]- 9310 May, Hypokalemia E87.6 [facility] [address] [address]- 8906 Apr, [facility] [id number] [place] [address] 14995- 9282 Apr, ADHD (attention deficit hyperactivity disorder), combined type F90.2 ; Generalized anxiety disorder F41.1 and Dysthymic disorder F34.1 [place] [id number] [place] [address] 41251- 0451 Apr, Right arm pain M79.601 and Hyperinsulinemia E16.1 [facility] [id number] [place] [address] 56352- 6295 Mar, [facility] [id number] [place] [address] 34391- 9793 Mar, [facility] [address] [place] [address] 04575- 6101 Mar, Hyperinsulinemia E16.1 ; Hyperlipidemia, unspecified hyperlipidemia type E78.5 ; Central venous catheter in place Z78.9 ; Generalized anxiety disorder F41.1 and Urinary tract infection, site not specified N39.0 [facility] [address] [place] [address] 73924- 6413 Mar, ADHD (attention deficit hyperactivity disorder), combined type F90.2 ; Generalized anxiety disorder F41.1 and Dysthymic disorder F34.1 [facility] [address] [place] [address] 71008- 7664 February, ADHD (attention deficit hyperactivity disorder), combined type F90.2 ; Generalized anxiety disorder F41.1 and Dysthymic disorder F34.1 [facility] [address] [address]- 8442 February, [facility] [address] [place] [address] 24203- 3016 February, [place] [id number] [place] [address] 42289- 9165 February, Hypertension I10 and Weight gain R63.5 [place] [id number] [place] [address] 04489- 1108 February, Major depressive disorder, recurrent, moderate F33.1 and Generalized anxiety disorder F41.1 [place] [id number] [place] [address] 72434- 4238 February, ADHD (attention deficit hyperactivity disorder), combined type F90.2 ; Generalized anxiety disorder F41.1 and Dysthymic disorder F34.1 [place] [id number] [place] [address] 42401- 2141 February, [place] [id number] [place] [address] 97006- 4052 February, Asthma J45.909 ; Weight gain R63.5 ; Hypertension I10 ; Rheumatoid arthritis M06.9 and Chronic pain syndrome G89.4 [place] [id number] [place] [address] 32048- 8844 Jan, ADHD (attention deficit hyperactivity disorder), combined type F90.2 ; Generalized anxiety disorder F41.1 and Dysthymic disorder F34.1 [place] [address] [place] [address] 43189- 5310 Dec, ADHD (attention deficit hyperactivity disorder), combined type F90.2 ; Generalized anxiety disorder F41.1 and Dysthymic disorder F34.1 [place] [id number] [place] [address] 30628- 8989 Dec, [place] [id number] [place] [address] 41112- 7083 Nov, [place] [id number] [place] [address] 13433- 6985 Nov, [facility] [address] [address]- 8314 Nov, [facility] [address] [address]- 0496 Nov, [facility] [address] [address]- 8600 Oct, [facility] [address] [address]- 4942 Oct, [facility] [address] [address]- 2593 Oct, [facility] [address] [address]- 3466 Sep, [facility] [address] [address]- 3095 Sep, [facility] [address] [address]- 1028 Sep, Agoraphobia with panic disorder F40.01 ; Attention-deficit hyperactivity disorder, combined type F90.2 and Dysthymic disorder F34.1 [facility] [address] [address]- 4792 Aug, [facility] [address] [address]- 8424 Aug, [facility] [address] [address]- 6343 Aug, [facility] [id number] [address]- 9699 Aug, Dysthymic disorder F34.1 ; Generalized anxiety disorder F41.1 and ADHD (attention deficit hyperactivity disorder), combined type F90.2 [facility] [id number] [address]- 2981 Aug, ADHD (attention deficit hyperactivity disorder), combined type F90.2 ; Generalized anxiety disorder F41.1 and Dysthymic disorder F34.1 [facility] [address] [address]- 6813 Jul, Urinary tract infection, site not specified N39.0 ; Hypotension, unspecified I95.9 and Breast cancer screening Z12.39 [facility] [address] [address]- 8193 Jul, [facility] [id number] [place] [address] 05402- 7169 Jul, [facility] [id number] [place] [address] 08712- 9950 Jul, Urinary tract infection, site not specified N39.0 ; Nausea R11.0 ; Gastroenteritis K52.9 ; Renal failure N19 and Other hypotension I95.89 [facility] [id number] [place] [address] 85205- 8348 Jul, [facility] [id number] [place] [address] 79530- 2562 Jul, [facility] [id number] [place] [address] 22763- 9276 Jul, [facility] [id number] [place] [address] 19477- 5190 Jun, [facility] [id number] [place] [address] 50706- 3588 Jun, Major depression in partial remission 296.25 ; Generalized anxiety disorder 300.02 and ADHD, predominantly inattentive type 314.01 [facility] [address] [address]- 4593 May, [place] [id number] [place] [address] 84586- 1544 Apr, Major depressive disorder, recurrent episode, severe, without mention of psychotic behavior 296.33 ; Agoraphobia with panic disorder 300.21 and Generalized anxiety disorder 300.02 [facility] [id number] [place] [address] 29862- 4954 Apr, ADHD (attention deficit hyperactivity disorder), combined type 314.01 ; Generalized anxiety disorder 300.02 and Dysthymic disorder 300.4 [facility] [id number] [place] [address] 48292- 3770 Apr, CAD (coronary artery disease) 414.00 ; HTN (hypertension) 401.9 and Tobacco use 305.1 [place] [address] 43424- 0676 Apr, [place] [id number] [place] [address] 84309- 2646 Mar, ADHD (attention deficit hyperactivity disorder), combined type 314.01 ; Generalized anxiety disorder 300.02 ; Dysthymic disorder 300.4 ; No condition on [place] V71.09 ; Rheumatoid arthritis 714.0 ; Incontinence 788.30 ; Irritable bowel syndrome 564.1 ; Osteoporosis 733.00 and Chronic pain 338.29 [place] [id number] [place] [address] 35160- 7064 Mar, Agoraphobia with panic disorder 300.21 and Major depressive disorder, recurrent episode, moderate 296.32 [place] [id number] [place] [address] [phone] Mar, [place] [id number] [place] [address] [id number]- [phone] February, [place] [id number] [place] [address] 276[address]- 9513 February, Agoraphobia with panic disorder 300.21 and Major depressive disorder, recurrent episode, moderate 296.32 [address] [place] [id number] [place] [address] 19646- 1437 February, [facility] [id number] [place] [address] 21549- 9114 Jan, [place] [id number] [place] [address] 47235- 7185 Jan, [facility] [place] [facility] [address] [id number] [place] [address] 4160 Dec, [facility] [place] [facility] [address] [id number] [place] [address]- 7565 Dec, [facility] [place] [facility] [address] [facility] [id number] [place] [address]- 5686 Dec, [facility] [place] [facility] [address] [facility] [id number] [place] [address]- 7548 Dec, [facility] [place] [facility] [address] [facility] [id number] [place] [address]- 3548 Dec, [facility] [place] [facility] [address] [facility] [id number] [place] [address]- 7813 Dec, [facility] [place] [facility] [address] [facility] [id number] [place] [address]- 9462 Nov, [facility] [place] [facility] [address] [facility] [id number] [place] [address]- 0583 Nov, [facility] [place] [facility] [address] [facility] [id number] [place] [address]- 3720 Nov, [facility] [place] [facility] [address] [facility] [id number] [place] [address]- 9649 Nov, [facility] [place] [facility] [address] [id number] [address]- 4302 Nov, 2014 [facility] [place] [facility] [address] [facility] [id number] [place] [address]- 4991 Nov, 2014 [facility] [place] [facility] [address] [facility] [id number] [place] [address]- 8717 Nov, 2014 [facility] [place] [facility] [address] [facility] [id number] [place] [address]- 3138 Nov, 2014 [facility] [place] [facility] [address] [id number] [place] [address]- 8314 Oct, [facility] [place] [facility] [address] [id number] [place] [address]- 2199 Oct, [facility] [place] [facility] [address] [id number] [place] [address]- 5603 Oct, [facility] [place] [facility] [address] [id number] [place] [address]- 2776 Oct, [facility] [place] [facility] [address] [id number] [place] [address]- 8787 Oct, [facility] [place] [facility] [address] [id number] [place] [address]- 2736 Oct, [facility] [place] [facility] [address] [id number] [place] [address]- 1643 Sep, [facility] [place] [facility] [address] [id number] [place] [address]- 5775 Sep, [facility] [place] [facility] [address] [id number] [place] [address]- 5352 Sep, [facility] [place] [facility] [address] [id number] [place] 5248 Sep, [facility] [place] [facility] [address] [id number] [place] [address]- 9864 Sep, [facility] [place] [facility] [address] [id number] [place] [address]- 1527 Sep, [facility] [place] [facility] [address] [id number] [place] [address]- 4882 Sep, [facility] [place] [facility] [address] [id number] [place] [address]- 4562 Aug, [facility] [place] [facility] [address] [id number] [place] [address]- 8830 Aug, [facility] [place] [facility] [address] [id number] [place] [address]- 7284 Aug, [facility] [place] [facility] [address] [id number] [place] [address]- 7510 Aug, [facility] [place] [facility] [address] [id number] [place] [address]- 3907 Aug, [facility] [place] [facility] [address] [id number] [place] [address]- 2836 Aug, [facility] [place] [facility] [address] [id number] [place] [address]- 1848 Jul, [facility] [place] [facility] [address] [id number] [place] [address]- 2561 Jul, [facility] [place] [facility] [address] [id number] [place] [address]- 9551 Jul, [facility] [place] [facility] [address] [id number] [place] [address]- 0722 Jul, [facility] [place] [facility] [address] [id number] [place] [address]- 9104 Jul, [facility] [place] [facility] [address] [id number] [place] [address]- 5584 Jul, [facility] [place] [facility] [address] [id number] [place] [address]- 1691 Jun, [facility] [place] [facility] [address] [id number] [place] [address]- 8539 Jun, [facility] [place] [facility] [address] [id number] [address]- 2546 May, [facility] [place] [facility] [address] [id number] [place] [address]- 5907 May, [facility] [place] [facility] [address] [id number] [place] [address]- 8735 Apr, [facility] [place] [facility] [address] [id number] [place] [address]- 2546 Apr, [facility] [place] [facility] [address] [id number] [place] [address]- 2546 Apr, [facility] [place] [facility] [address] [id number] [place] [address]- 2438 Apr, [facility] [place] [facility] [address] [id number] [place] [address]- 0202 Mar, [facility] [place] [facility] [address] [id number] [place] [address]- 6404 Mar, [facility] [place] [facility] [address] [id number] [place] [address]- 2827 Mar, [facility] [place] [facility] [address] [id number] [place] [address]- 8882 Mar, [facility] [place] [facility] [address] [id number] [place] [address]- 5860 February, [facility] [place] [facility] [address] [id number] [place] [address]- 9298 February, [facility] [place] [facility] [address] [id number] [place] [address]- 3630 February, [facility] [place] [facility] [address] [id number] [place] [address]- 6290 February, [facility] [place] [facility] [address] [id number] [place] [address]- 9225 February, [facility] [place] [facility] [address] [facility] [id number] [place] [address]- 5853 February, [facility] [place] [facility] [address] [id number] [place] [address]- 2095 Jan, [facility] [place] [facility] [address] [id number] [place] [address]- 2541 Jan, [facility] [place] [facility] [address] [id number] [place] [address]- 2540 Dec, [facility] [place] [facility] [address] [id number] [place] [address]- 9687 Dec, [facility] [place] [facility] [address] [id number] [place] [address]- 9201 Nov, [facility] [place] [facility] [address] [id number] [place] [address]- 2520 Nov, [facility] [address] [id number] [place]36 Oct, [facility] [place] [facility] [address] [id number] [place] [address]- 0882 Oct, [facility] [place] [facility] [address] [id number] [place] [address]- 3907 Oct, [facility] [address] [id number] [place] [address]- 7205 Oct, [facility] [place] [facility] [address] [id number] [place] 4474 Sep, [facility] [address] [id number] [place] [address]- 1561 Sep, [facility] [address] [id number] [place] [address]- 7542 Sep, [facility] [place] [facility] [address] [id number] [place] [address]- 8593 Sep, [facility] [place] [facility] [address] [id number] [place] 4712 Sep, [facility] [place] [facility] [address] [id number] [place] [address]- 1591 Sep, [facility] [place] [facility] [address] [id number] [place] [address]- 1385 Sep, [facility] [place] [facility] [address] [id number] [place] [address]- 5124 Sep, [facility] [place] [facility] [address] [id number] [place] [address]- 8694 Aug, [facility] [place] [facility] [address] [id number] [place] [address]- 9195 Aug, [facility] [place] [facility] [address] [id number] [place] [address]- 5798 Aug, [facility] [place] [facility] [address] [id number] [place] [address]- 7897 Aug, [facility] [place] [facility] [address] [id number] [place] [address]- 9967 Aug, [facility] [place] [facility] [address] [id number] [place] [address]- 3181 Aug, [facility] [place] [facility] [address] [id number] [place] [address]- 8987 Aug, [facility] [place] [facility] [address] [id number] [place] [address]- 2606 Aug, [facility] [place] [facility] [address] [id number] [place] [address]- 9838 Aug, [facility] [place] [facility] [address] [id number] [place] [address]- 2515 Jul, [facility] [place] [facility] [address] [id number] [place] [address]- 4721 Jun, [facility] [place] [facility] [address] [id number] [place] [address]- 7501 May, [facility] [place] [facility] [address] [id number] [place] [address]- 9003 May, [facility] [place] [facility] [address] [id number] [place] [address]- 6582 May, [facility] [place] [facility] [address] [id number] [place] [address]- 3818 Apr, [facility] [place] [facility] [address] [id number] [place] [address]- 9587 Mar, [facility] [place] [facility] [address] [id number] [place] [address]- 4716 February, [facility] [place] [facility] [address] [id number] [place] [address]- 4288 Oct, [facility] [place] [facility] [address] [id number] [place] [address]- 6704 16 Oct, 2012 [facility] [place] [facility] [address] [id number] [place] [address]- 1859 14 Oct, 2012 [facility] [place] [facility] [address] [id number] [place] [address]- 0956 14 Oct, 2012 [facility] [place] [facility] [address] [id number] [place] [address]- 4119 Oct, [facility] [place] [facility] [address] [id number] [place] [address]- 2718 Oct, [facility] [place] [facility] [address] [id number] [place] [address]- 3222 Sep, [facility] [place] [facility] [address] [id number] [place] [address]- 6893 Sep, [facility] [place] [facility] [address] [id number] [place] [address]- 9476 Aug, [facility] [place] [facility] [address] [id number] [place] [address]- 8912 Aug, [facility] [place] [facility] [address] [id number] [place] [address]- 6853 Jul, [facility] [place] [facility] [address] [id number] [place] [address]- 9848 Jul, [facility] [place] [facility] [address] [id number] [place] [address]- 2609 Jul, [facility] [place] [facility] [address] [id number] [place] [address]- 7763 Jul, [facility] [place] [facility] [address] [id number] [place] [address]- 5227 Jul, [facility] [place] [facility] [address] [id number] [place] [address]- 2712 Jul, [facility] [place] [facility] [address] [id number] [place] [address]- 7582 Jul, [facility] [place] [facility] [address] [id number] [place] [address]- 4304 Jul, [facility] [place] [facility] [address] [id number] [place] [address]- 7401 16 Jun, 2012 [facility] [place] [facility] [address] [id number] [place] [address]676 Jun, [facility] [place] [facility] [address] [id number] [place] [address]- 1340 May, [facility] [place] [facility] [address] [id number] [place] [address]- 0343 Apr, [facility] [place] [facility] [address] [id number] [place] [address]- 8274 Mar, [facility] [place] [facility] [address] [id number] [place] [address]- 1613 Mar, [facility] [place] [facility] [address] [id number] [place] [address]- 0266 Mar, [facility] [place] [facility] [address] [id number] [place] [address]- 0797 Mar, [facility] [place] [facility] [address] [id number] [place] [address]- 7125 Jan, [facility] [place] [facility] [address] [id number] [place] [address]- 2037 Nov, [facility] [place] [facility] [address] [id number] [place] [address]- 3759 Nov, [facility] [place] [facility] [address] [id number] [place] [address]- 5896 Nov, [facility] [place] [facility] [address] [id number] [place] [address]862 Oct, [facility] [place] [facility] [address] [id number] [place] [address]- 8486 Sep, [facility] [place] [facility] [id number] [address]- 2966 Sep, [facility] [id number] [address]101 Aug, [facility] [id number] [place] [address] 3815 Aug, [facility] [id number] [address] Aug, [facility] [id number] [address]- 2121 Aug, [facility] [id number] [place] [address] 79768- 7431 Jul, [facility] [id number] [place] [address] 681283- 1965 May, [facility] [id number] [place] [address] 475916- 2561 Jan, [facility] [id number] [address]- 3000 Nov, [facility] [id number] [place] [address] 12733- 3848 Apr, [facility] [id number] [address]- 8574 Dec, [facility] [id number] Nov, IMMUNIZATIONS No Known Immunizations SOCIAL HISTORY Never Assessed REASON FOR VISIT Medication Clarification PLAN OF CARE VITAL SIGNS MEDICATIONS Medication Instructions Dosage Frequency Start Date End Date Duration Status Venlafaxine HCl ER 225 MG Orally Once a day 1 tablet 24h Nov, 30 days Active RESULTS No Results PROCEDURES No Known procedures INSTRUCTIONS MEDICATIONS ADMINISTERED No Known Medications MEDICAL (GENERAL) HISTORY Type Description Date Medical History Cardiovascular rcgkhowx-VBL-Ifwhfrnz, 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 Mendoza Medical History Stress test 03/07/13-Dr. Kelly Dietrich normal Medical History Hypertension Medical History Asthma Medical History Gastrointestinal Disorder--IBS, GERD, Hx of fatty liver Medical History Hernia 1978 Medical History Cervical dysplasia 02/16-Pap LGSIL/[place]-mild dysplasia Medical History Hyperlipidemia Medical History Rheumatoid [...] Kidney injury 07/10/15-07/11/2015 Hospitalization History Symptomatic Hypokalemia/Nause-[facility]ia [facility] 05/13/16 Hospitalization History Stroke 05/03/2017 Hospitalization History stroke 08/24/2017--09/01/2017
--- OUTSIDE RECORDS SUMMARY | 2018-06-12 16:10 | XMS REPORT ---
Author Author LORI SNOWDEN [facility] Address [address] [place] [address] Care Team Providers Care Camera Storage Clerk Name Role Phone LORI SNOWDEN Unavailable PROBLEMS Type Condition ICD9-CM Code FGR93-GC Code Onset Dates Condition Status SNOMED Code Problem ADHD (attention deficit hyperactivity disorder), combined type F90.2 Active 52971916 Problem Other fdc (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 Active 118541692 Problem Generalized anxiety disorder F41.1 Active 17959174 Problem Cerebrovascular accident (CVA), unspecified mechanism I63.9 Active 198010546 Problem Asthma J45.909 Active 565901726 Problem Dysthymic disorder F34.1 Active 23846412 Problem Rheumatoid arthritis involving multiple sites, unspecified rheumatoid factor presence M06.9 Active 686878716 Problem Sleep apnea in adult G47.30 Active 88947392 Problem Seasonal allergies J30.2 Active 984401662 Problem Mild episode of recurrent major depressive disorder F33.0 Active 692987092 Problem Rheumatoid arthritis M06.9 Active 64140835 Problem Chronic pain syndrome G89.4 Active 654594161 Problem Hypertension I10 Active 39791565 Problem Anxiety F41.9 Active 93565850 Problem Gastroesophageal reflux disease with esophagitis K21.0 Active 774495400 Problem Panic attacks F41.0 Active 184571151 Problem Irritable bowel syndrome with diarrhea K58.0 Active 082772800 Problem Mixed hyperlipidemia E78.2 Active 980111878 Problem Hyperinsulinemia E16.1 Active 66855917 Problem Weight gain R63.5 Active 5243804 Problem Arteriosclerotic coronary artery disease I25.10 Active 40330031 Problem Chronic obstructive pulmonary disease, unspecified J44.9 Active [id number] Problem Obstructive sleep apnea G47.33 Active 68678099 Problem Neuropathy G62.9 Active 911952939 Problem Other insomnia G47.09 Active 887965953 ALLERGIES Substance Reaction Event Type Date Status Breo Ellipta Nausea, dizziness Drug Allergy Aug, Active Solu-Medrol rash, swelling Drug Allergy Aug, Active Paxil Unknown Drug Allergy Aug, Active Hydrocodone-Acetaminophen hives Drug Allergy Aug, Active Doxycycline Hyclate local swellling Drug Allergy Aug, Active Codeine Sulfate hives Drug Allergy Aug, Active Iodinated Contrast Media - Iv Dye unknown Non Drug Allergy Aug, Active Oxybutynin 5 Ea Tablet mouth sores Non Drug Allergy Aug, Active ENCOUNTERS Encounter Location Date Diagnosis [facility] [id number] [place] [address] 54405- 3752 Mar, [place] [address] 42294- 3252 February, Generalized anxiety disorder F41.1 [facility] [address] [address] February, Cough R05 and Seasonal allergies J30.2 [place] [address] 70476- 4082 February, Generalized anxiety disorder F41.1 and Mild episode of recurrent major depressive disorder F33.0 [place] [id number] [place] [address] 26374- 3586 February, 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 ; Anxiety F41.9 ; Panic attacks F41.0 and Irritable bowel syndrome with diarrhea K58.0 [place] [id number] [place] [address] 45498- 6816 February, [facility] [id number] [place] [address] 50708- 2691 Jan, Mixed hyperlipidemia E78.2 [place] [address] 50762- 6883 Jan, [place] [address] 82715- 3875 Jan, [facility] [address] [place] [address] 7112 Jan, [facility] [id number] [place] [address] 73534- 5412 Jan, [facility] [id number] [place] [address] 30967- 4263 Dec, [facility] [id number] [place] [address] 98805- 8525 Dec, [facility] [id number] [place] [address] 81959- 3049 Dec, [facility] [id number] [place] [address] 44421- 1131 Nov, Dysthymic disorder F34.1 [facility] [id number] [place] [address] 25726- 1708 Oct, [facility] [id number] [place] [address] 99503- 9265 Oct, [facility] [id number] [place] [address] 36548- 0702 Oct, [facility] [id number] [place] [address] 07318- 3733 Oct, Diarrhea, unspecified type R19.7 and Dysuria R30.0 [facility] [id number] [place] [address] 60851- 4721 Oct, [facility] [id number] [place] [address] 74853- 6134 Sep, [facility] [id number] [place] [address] 891584- 0607 Sep, [facility] [id number] [place] [address] 826403- 9319 Sep, Anxiety F41.9 [facility] [address] [address] Sep, Cerebrovascular accident (CVA), unspecified mechanism I63.9 ; Mixed hyperlipidemia E78.2 ; Gastroesophageal reflux disease with esophagitis K21.0 and Anxiety F41.9 [place] [id number] [place] [address] 13751- 8999 Sep, [place] [id number] [place] [address] 87014- 6866 Aug, Chronic obstructive pulmonary disease, unspecified J44.9 ; Asthma J45.909 ; Nausea R11.0 ; Dysthymic disorder F34.1 ; Cerebrovascular accident (CVA), unspecified mechanism I63.9 and Rheumatoid arthritis M06.9 [place] [address] 37160- 3342 Aug, Nausea R11.0 ; Encounter for immunization Z23 ; Sleep apnea in adult G47.30 ; Rheumatoid arthritis involving multiple sites, unspecified rheumatoid factor presence M06.9 ; Generalized anxiety disorder F41.1 ; Dysthymic disorder F34.1 and Asthma J45.909 [place] [id number] [place] [address] 53176- 8447 Jul, [place] [address] 04903- 2136 May, ADHD (attention deficit hyperactivity disorder), combined type F90.2 ; Generalized anxiety disorder F41.1 and Persistent depressive disorder F34.1 [place] [id number] [place] [address] 69199- 1460 May, Cerebrovascular accident (CVA), unspecified mechanism I63.9 [place] [id number] [place] [address] 10647- 5357 Apr, Mixed hyperlipidemia E78.2 and Cerebrovascular accident (CVA ), unspecified mechanism I63.9 [place] [id number] [place] [address] 78264- 5540 Apr, Generalized anxiety disorder F41.1 [place] [address] 29105- 1005 Apr, Bronchitis J40 and Tobacco use Z72.0 [place] [address] 03327- 6526 Apr, Mixed hyperlipidemia E78.2 [place] [address] 09647- 1135 Apr, Other fdc (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 [place] [address] 60900- 8043 Apr, [place] [address] 75833- 4064 Apr, Generalized anxiety disorder F41.1 [place] [address] 28595- 2897 Apr, Obstructive sleep apnea G47.33 and Hyperinsulinemia E16.[address] 37448- 0501 Apr, ADHD (attention deficit hyperactivity disorder), combined type F90.2 ; Generalized anxiety disorder F41.1 and Persistent depressive disorder F34.1 [place] [address] 47475- 0907 Mar, [place] [address] 07917- 3997 Mar, Generalized anxiety disorder F41.1 [place] [address] 61246- 2766 Mar, Tarsal tunnel syndrome of both lower extremities G57.53 [place] [address] 94361- 1984 February, [place] [address] 67474- 9400 February, [place] [address] 71374- 4235 February, Asthma J45.909 [place] [id number] [place] [address] 16000- 1652 February, Generalized anxiety disorder F41.1 [place] [address] 42299- 8094 February, Hypoxemia R09.02 ; Hyperglycemia R73.9 ; Rheumatoid arthritis M06.9 and Generalized anxiety disorder F41.1 [place] [address] 27525- 2638 February, [place] [address] 58801- 2314 Jan, Chronic obstructive pulmonary disease, unspecified J44.9 [place] [address] 84945- 7252 Jan, Chronic pain syndrome G89.4 [place] [address] 95887- 0116 Jan, Hypoxemia R09.02 [place] [address] 58285- 4964 Jan, [place] [address] 71870- 7309 Jan, Chronic obstructive pulmonary disease, unspecified J44.9 ; Hypoxemia R09.02 ; Other insomnia G47.09 and Left anterior shoulder pain M25.512 [place] [id number] [place] [address] 53136- 2840 Jan, Numbness in feet R20.0 and Neuropathy G62.9 [place] [id number] [place] [address] 46028- 8618 Jan, [place] [id number] [place] [address] 35466- 1692 Dec, Acute pain of left shoulder M25.512 [place] [id number] [place] [address] 06372- 6998 Dec, Acute pain of left shoulder M25.512 [facility] [address], [place] [address]- 6780 Dec, Generalized anxiety disorder F41.1 [facility] [id number] [place] [address] 57428 2546 Dec, Generalized anxiety disorder F41.1 [facility] [id number] [place] [address] 62530 2546 Nov, ADHD (attention deficit hyperactivity disorder), combined type F90.2 ; Generalized anxiety disorder F41.1 and Persistent depressive disorder F34.1 [facility] [address] [place] [address] 66708- 1576 Nov, Acute pain of left shoulder M25.512 [facility] [address] [place] [address] 12967 2546 Nov, ADHD (attention deficit hyperactivity disorder), combined type F90.2 ; Generalized anxiety disorder F41.1 and Persistent depressive disorder F34.1 [facility] [address] [place] [address] 46022- 1046 Nov, Chronic pain syndrome G89.4 [facility] [id number] [place] [address] 73407 2546 13 Nov, 2016 Chronic pain syndrome G89.4 [facility] [id number] [place] [address] 45426 2546 08 Nov, 2016 Acute pain of left shoulder M25.512 [facility] [address], [place] [address] 2546 07 Nov, 2016 Generalized anxiety disorder F41.1 [facility] [id number] [place] [address] 09565 2546 06 Nov, 2016 Acute pain of left shoulder M25.512 [facility] [address], [place] [address] 2546 Nov, ADHD (attention deficit hyperactivity disorder), combined type F90.2 ; Generalized anxiety disorder F41.1 and Persistent depressive disorder F34.1 [place] [id number] [place] [address] 35133- 5648 Nov, Acute pain of left shoulder M25.512 ; Generalized anxiety disorder F41.1 ; Chronic pain syndrome G89.4 ; Hyperinsulinemia E16.1 ; Pain of left foot M79.672 and Pain in right foot M79.671 [place] [address] 57025- 0845 Oct, ADHD (attention deficit hyperactivity disorder), combined type F90.2 ; Generalized anxiety disorder F41.1 and Dysthymic disorder F34.1 [place] [address] 85028- 4464 Sep, [place] [address] 83391- 7367 Sep, [address] 15213- 8583 Sep, Routine gynecological examination V72.31 ; Cervical cancer screening Z12.4 ; Breast cancer screening Z12.39 ; Colon cancer screening Z12.11 ; Hypokalemia E87.6 ; Herpes simplex type 1 infection B00.9 and Abscess of right axilla L02.411 [place] [id number] [place] [address] 87859- 0504 Sep, [place] [id number] [place] [address] 18247- 9502 Sep, ADHD (attention deficit hyperactivity disorder), combined type F90.2 ; Generalized anxiety disorder F41.1 and Dysthymic disorder F34.1 [place] [address] 10411- 1090 Aug, [place] [id number] [place] [address] 85682- 2976 Aug, [place] [address] 32442- 5896 Aug, Generalized anxiety disorder F41.1 [facility] [id number] [place] [address] 57951- 0439 Aug, ADHD (attention deficit hyperactivity disorder), combined type F90.2 ; Generalized anxiety disorder F41.1 and Dysthymic disorder F34.1 [place] [id number] [place] [address] 15777- 8211 Jul, Chronic pain syndrome G89.4 ; Hypertension I10 ; Hypokalemia E87.6 ; Asthma J45.909 and Nausea R11.0 [place] [address] 26183- 4175 Jul, [place] [address] 35554- 2392 Jul, Asthma J45.909 [place] [address] 56252- 8501 Jul, ADHD (attention deficit hyperactivity disorder), combined type F90.2 ; Generalized anxiety disorder F41.1 and Dysthymic disorder F34.1 [place] [address] 53387- 7412 Jul, [place] [id number] [place] [address] 80757- 4603 Jul, Hypertension I10 ; Arteriosclerotic coronary artery disease I25.10 ; Mixed hyperlipidemia E78.2 ; Other fdc (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 and Hyperglycemia R73.9 [place] [id number] [place] [address] 51294- 5959 16 Jun, 2016 Hypokalemia E87.6 and Hyperglycemia R73.9 [place] [id number] [place] [address] 04415- 5352 14 Jun, 2016 [facility] [id number] [place] [address] 40369- 4125 13 Jun, 2016 Abnormal kidney function N28.9 [place] [address] 59096- 9527 Jun, [place] [address] 41345- 1705 Jun, ADHD (attention deficit hyperactivity disorder), combined type F90.2 ; Generalized anxiety disorder F41.1 and Dysthymic disorder F34.1 [place] [address] 93834- 3597 Jun, Generalized anxiety disorder F41.1 and Dysthymic disorder F34.1 [place] [address] 17251- 7729 Jun, Hypokalemia E87.6 [place] [address] 82768- 7886 May, Hypokalemia E87.6 ; Vertigo R42 and Hyperinsulinemia E16.1 [place] [address] 09934- 0603 May, [place] [address] 12352- 9102 May, Abnormal kidney function N28.9 ; Hyperinsulinemia E16.1 and Nausea R11.0 [place] [address] 56241- 4788 May, Hypokalemia E87.6 ; Nausea R11.0 ; Epigastric pain R10.13 ; Dehydration E86.0 ; Diaphoresis R61 and Right arm pain M79.601 [place] [address] 98949- 9987 May, [place] [address] 78269- 5821 May, Hypokalemia E87.6 [place] [address] 10991- 9543 May, Hypokalemia E87.6 [place] [id number] [place] [address] 70135- 2777 Apr, [place] [address] 55199- 2968 Apr, ADHD (attention deficit hyperactivity disorder), combined type F90.2 ; Generalized anxiety disorder F41.1 and Dysthymic disorder F34.1 [place] [address] 29820- 5366 Apr, Right arm pain M79.601 and Hyperinsulinemia E16.1 [place] [address] 39439- 2983 Mar, [place] [address] 06603- 7714 Mar, [place] [address] 79052- 0853 Mar, Hyperinsulinemia E16.1 ; Hyperlipidemia, unspecified hyperlipidemia type E78.5 ; Central venous catheter in place Z78.9 ; Generalized anxiety disorder F41.1 and Urinary tract infection, site not specified N39.0 [place] [id number] [place] [address] 03660- 6837 Mar, ADHD (attention deficit hyperactivity disorder), combined type F90.2 ; Generalized anxiety disorder F41.1 and Dysthymic disorder F34.1 [place] [id number] [place] [address] 11688- 5600 February, ADHD (attention deficit hyperactivity disorder), combined type F90.2 ; Generalized anxiety disorder F41.1 and Dysthymic disorder F34.1 [place] [id number] [place] [address] 90600- 9894 February, [place] [id number] [place] [address] 55045- 5515 February, [place] [id number] [place] [address] 05103- 0677 February, Hypertension I10 and Weight gain R63.5 [facility] [id number] [place] [address] 63631- 9482 February, Major depressive disorder, recurrent, moderate F33.1 and Generalized anxiety disorder F41.1 [place] [id number] [place] [address] 21142- 0078 February, ADHD (attention deficit hyperactivity disorder), combined type F90.2 ; Generalized anxiety disorder F41.1 and Dysthymic disorder F34.1 [place] [id number] [place] [address] 24550- 9239 February, [place] [id number] [place] [address] 42244- 0871 February, Asthma J45.909 ; Weight gain R63.5 ; Hypertension I10 ; Rheumatoid arthritis M06.9 and Chronic pain syndrome G89.4 [place] [id number] [place] [address] 04302- 9093 Jan, ADHD (attention deficit hyperactivity disorder), combined type F90.2 ; Generalized anxiety disorder F41.1 and Dysthymic disorder F34.1 [place] [id number] [place] [address] 02860- 5342 Dec, ADHD (attention deficit hyperactivity disorder), combined type F90.2 ; Generalized anxiety disorder F41.1 and Dysthymic disorder F34.1 [place] [id number] [place] [address] 68233- 2207 Dec, [place] [id number] [place] [address] 46770- 1817 Nov, [place] [id number] [place] [address] 54915- 0314 Nov, [place] [id number] [place] [address] 65375- 9605 Nov, [place] [id number] [place] [address] 72893- 6475 Nov, [facility] [address], [place] [address]- 4565 Oct, [facility] [address], [place] [address]- 4078 Oct, [facility] [address], [place] [address]- 6002 Oct, [facility] [id number] [place] [address] 49372- 7677 Sep, [facility] [id number] [place] [address] 39392- 9725 Sep, [facility] [address], [place] [address]- 1228 Sep, Agoraphobia with panic disorder F40.01 ; Attention-deficit hyperactivity disorder, combined type F90.2 and Dysthymic disorder F34.1 [facility] [address], [place] [address]- 1781 Aug, [facility] [address], [place] [address]- 8557 Aug, [facility] [address], [place] [address]- 3016 Aug, [facility] [address], [place] [address]- 9011 Aug, Dysthymic disorder F34.1 ; Generalized anxiety disorder F41.1 and ADHD (attention deficit hyperactivity disorder), combined type F90.2 [facility] [address], [place] [address]- 8257 Aug, ADHD (attention deficit hyperactivity disorder), combined type F90.2 ; Generalized anxiety disorder F41.1 and Dysthymic disorder F34.1 [facility] [address], [place] [address]- 0464 Jul, Urinary tract infection, site not specified N39.0 ; Hypotension, unspecified I95.9 and Breast cancer screening Z12.39 [facility] [id number] [place] [address] 86345- 5987 Jul, [facility] [id number] [place] [address] 63464- 4214 Jul, [facility] [id number] [place] [address] 84442- 9788 Jul, Urinary tract infection, site not specified N39.0 ; Nausea R11.0 ; Gastroenteritis K52.9 ; Renal failure N19 and Other hypotension I95.89 [facility] [id number] [place] [address] 57728- 3366 Jul, [facility] [id number] [place] [address] 01981- 2960 Jul, [facility] [id number] [place] [address] 50810- 8884 Jul, [facility] [id number] [place] [address] 58637- 6085 Jun, [facility] [id number] [place] [address] 53167- 0935 Jun, Major depression in partial remission 296.25 ; Generalized anxiety disorder 300.02 and ADHD, predominantly inattentive type 314.01 [place] [id number] [place] [address] 06959- 6436 May, [facility] [id number] [place] [address] 97275- 9228 Apr, Major depressive disorder, recurrent episode, severe, without mention of psychotic behavior 296.33 ; Agoraphobia with panic disorder 300.21 and Generalized anxiety disorder 300.02 [facility] [address] [place] [address] 20342- 8448 Apr, ADHD (attention deficit hyperactivity disorder), combined type 314.01 ; Generalized anxiety disorder 300.02 and Dysthymic disorder 300.4 [place] [id number] [address]- 1209 Apr, CAD (coronary artery disease) 414.00 ; HTN (hypertension) 401.9 and Tobacco use 305.1 [facility] [id number] [place] [address] 64726- 4163 Apr, [facility] [id number] [place] [address] 77764- 2042 Mar, ADHD (attention deficit hyperactivity disorder), combined type 314.01 ; Generalized anxiety disorder 300.02 ; Dysthymic disorder 300.4 ; No condition on Dewitt II V71.09 ; Rheumatoid arthritis 714.0 ; Incontinence 788.30 ; Irritable bowel syndrome 564.1 ; Osteoporosis 733.00 and Chronic pain 338.29 [facility] [id number] [place] [address] 61923- 7467 16 Mar, 2015 Agoraphobia with panic disorder 300.21 and Major depressive disorder, recurrent episode, moderate 296.32 [facility] [id number] [place] [address] 45430- 2674 Mar, [facility] [id number] [place] [address] 73805- 1307 February, [facility] [id number] [place] [address]11- [address]300 February, Agoraphobia with panic disorder 300.21 and Major depressive disorder, recurrent episode, moderate 296.32 [facility] [id number] [place] [address] 76243- 0021 February, [facility] [id number] [place] [address] 40997- 3379 Jan, [facility] [id number] [place] [address] 20102- 5409 Jan, [facility] [id number] [place] [address] [id number]- 0085 Dec, [facility] [id number] [address] Dec, [facility] [place] [facility] [address] [id number] [place] [address] Dec, [facility] [place] [facility] [address] [id number] [place] [address] Dec, [facility] [place] [facility] [address] [id number] [place] [address] Dec, [facility] [place] [facility] [address] [id number] [place] [address] Dec, [facility] [place] [facility] [address] [id number] [place] [address] Nov, 2014 [facility] [place] [facility] [address] [id number] [place] [address] Nov, [facility] [place] [facility] [address] [facility] [id number] [place] [address] Nov, [facility] [place] [facility] [address] [id number] [place] [address] 9270 Nov, [facility] [place] [facility] [address] [id number] [place] [address] 1347 Nov, [facility] [place] [facility] [address] [facility] [id number] [place] [address] Nov, [facility] [place] [facility] [address] [facility] [id number] [place] [address] Nov, [facility] [place] [facility] [address] [id number] [place] [address] 5938 Nov, [facility] [place] [facility] [address] [id number] [place] [address]111 Oct, [facility] [place] [facility] [address] [facility] [id number] [place] [address]- 7876 Oct, [facility] [place] [facility] [address] [facility] [id number] [place] [address] 9269 Oct, [facility] [place] [facility] [address] [id number] [place] [address] 8520 Oct, [facility] [place] [facility] [address] [id number] [place] [address]- 5498 Oct, [facility] [place] [facility] [address] [id number] [place] [address]- 9084 Oct, [facility] [place] [facility] [address] [id number] [place] [address]- 9981 Sep, [facility] [place] [facility] [address] [id number] [place] [address]- 8234 Sep, [facility] [place] [facility] [address] [id number] [place] [address]- 5584 Sep, [facility] [place] [facility] [address] [id number] [place] [address]- 3672 Sep, [facility] [place] [facility] [address] [id number] [place] [address]- 7060 Sep, [facility] [place] [facility] [address] [id number] [place] [address]- 8792 Sep, [facility] [place] [facility] [address] [id number] [place] [address]- 8991 Sep, [facility] [place] [facility] [address] [id number] [place] [address]- 7846 Aug, [facility] [place] [facility] [address] [id number], [place] [address] Aug, [facility] [place] [facility] [address] [id number] [place] [address]- 9497 Aug, [facility] [place] [facility] [address] [id number] [place] [address]- 7814 Aug, [facility] [place] [facility] [address] [id number] [place] [address]- 8036 Aug, [facility] [place] [facility] [address] [id number] [place] [address]- 1769 Aug, [facility] [place] [facility] [address] [id number] [place] [address]- 9394 Jul, [facility] [place] [facility] [address] [id number] [place] [address]- 5198 Jul, [facility] [place] [facility] [address] [id number] [place] [address]- 2051 Jul, [facility] [place] [facility] [address] [id number] [place] [address]- 5303 Jul, [facility] [place] [facility] [address] [id number] [place] [address]- 0098 Jul, [facility] [place] [facility] [address] [id number] [place] [address]- 2782 Jul, [facility] [place] [facility] [address] [id number] [place] [address]- 1444 Jun, [facility] [place] [facility] [address] [id number] [place] [address]- 8369 Jun, [facility] [place] [facility] [address] [id number] [place] [address]- 3239 May, [facility] [place] [facility] [address] [id number] [place] [address]- 3441 May, [facility] [place] [facility] [address] [id number] [place] [address] 4197 Apr, [facility] [place] [facility] [address] [id number] [place] [address]- 5888 Apr, [facility] [place] [facility] [address] [id number] [place] [address]- 9166 Apr, [facility] [place] [facility] [address] [id number] [place] [address]- 3999 Apr, [facility] [place] [facility] [address] [id number] [place] [address]- 5834 Mar, [facility] [place] [facility] [address] [id number] [place] [address] 8012 Mar, [facility] [place] [facility] [address] [id number] [place] [address]- 3251 Mar, [facility] [place] [facility] [address] [id number] [place] [address]- 5750 Mar, [facility] [place] [facility] [address] [id number] [place] [address] 4095 February, [facility] [place] [facility] [address] [id number] [place] [address] 3610 February, [facility] [place] [facility] [address] [id number] [place] [address]- 9264 February, [facility] [place] [facility] [address] [id number] [place] [address] 6194 February, [facility] [place] [facility] [address] [id number] [place] [address]- 9752 February, [facility] [place] [facility] [address] [id number] [place] [address]- 8581 February, [facility] [place] [facility] [address] [id number] [place] [address]- 1435 Jan, [facility] [place] [facility] [address] [id number] [place] [address]- 7956 Jan, [facility] [place] [facility] [address] [id number] [place] [address]- 8644 Dec, [facility] [place] [facility] [address] [id number] [place] [address]- 1034 Dec, [facility] [place] [facility] [address] [id number] [place] [address]- 9562 Nov, [facility] [place] [facility] [address] [id number] [place] [address]- 6777 Nov, [facility] [place] [facility] [address] [id number] [place] [address]- 1008 Oct, [facility] [address] [id number] [place] [address]- 2637 Oct, [facility] [place] [facility] [address] [id number] [place] [address]- 0042 Oct, [facility] [place] [facility] [address] [id number] [place] [address]- 3547 Oct, [facility] [place] [facility] [address] [id number] [place] [address]- 5162 Sep, [facility] [place] [facility] [address] [id number] [place] [address]- 8404 Sep, [facility] [place] [facility] [address] [id number] [place] [address]- 2882 Sep, [facility] [place] [facility] [address] [id number] [place] [address]- 9670 Sep, [facility] [place] [facility] [address] [id number] [place] [address]- 8395 Sep, [facility] [place] [facility] [address] [id number] [place] [address]- 0923 Sep, [facility] [place] [facility] [address] [id number] [place] [address]- 8962 Sep, [facility] [place] [facility] [address] [id number], [place] [address]- 1378 Sep, [facility] [place] [facility] [address] [id number], [place] [address]- 8521 Aug, [facility] [place] [facility] [address] [id number] [place] [address]- 2721 Aug, [facility] [place] [facility] [address] [id number] [place] [address] Aug, [facility] [place] [facility] [address] [id number] [place] [address] Aug, [facility] [place] [facility] [address] [id number] [place] [address]- 2546 Aug, [facility] [address] [id number] [place] [address]- 2014 Aug, [facility] [place] [facility] [address] [id number] [place] [address]- 2546 Aug, [facility] [address] [id number] [place] [address] 2546 Aug, [facility] [address] [id number] [place] [address] 2541 Aug, [facility] [address] [id number] [place] [address]- 3013 Jul, [facility] [address] [id number] [place] [address]- 7246 Jun, [facility] [address] [id number] [place] [address]- 1601 May, [facility] [address] [id number] [place] [address]- [address]89 May, [facility] [address] [id number] [place] [address]- 0784 May, [facility] [address] [id number] [place] [address] [address] Apr, [facility] [address] [id number] [place] [address]- 2546 Mar, [facility] [address] [id number] [place] [address]- 2547 February, [facility] [place] [facility] [address] [id number] [place] [address]- 2546 Oct, [facility] [place] [facility] [address] [id number] [place] [address]- 2546 16 Oct, 2012 [facility] [place] [facility] [address] [id number] [place] [address]- 5781 Oct, [facility] [place] [facility] [address] [id number] [place] [address]- 5028 14 Oct, 2012 [facility] [place] [facility] [address] [id number] [place] [address]- 3907 Oct, [facility] [place] [facility] [address] [id number] [place] [address]- 2060 Oct, [facility] [place] [facility] [address] [id number] [place] [address]- 7105 Sep, [facility] [place] [facility] [address] [id number] [place] [address]- 8045 Sep, [facility] [place] [facility] [address] [id number] [place] [address]- 4391 Aug, [facility] [place] [facility] [address] [id number] [place] [address]- 2908 Aug, [facility] [place] [facility] [address] [id number] [place] [address]- 1806 Jul, [facility] [place] [facility] [address] [id number] [place] [address]- 5254 Jul, [facility] [place] [facility] [address] [id number] [place] [address]- 5473 Jul, [facility] [place] [facility] [address] [id number] [place] [address]- 5070 Jul, [facility] [place] [facility] [address] [id number], [place] [address]- 6668 Jul, [facility] [place] [facility] [address] [id number] [place] [address]- 0730 Jul, [facility] [place] [facility] [address] [id number] [place] [address] Jul, [facility] [place] [facility] [address] [id number] [place] [address]- 8822 Jul, [facility] [place] [facility] [address] [id number] [place] [address]- 7134 16 Jun, 2012 [facility] [place] [facility] [address] [id number] [place] [address]- 5962 Jun, [facility] [place] [facility] [address] [id number] [place] [address]- 7325 May, [facility] [place] [facility] [address] [id number] [place] [address]- 4561 Apr, [facility] [place] [facility] [address] [id number] [place] [address]- 3189 Mar, [facility] [place] [facility] [address] [id number] [place] [address]- 1600 Mar, [facility] [place] [facility] [address] [id number] [place] [address]- 4242 Mar, [facility] [place] [facility] [address] [id number] [place] [address]- 2392 Mar, [facility] [place] [facility] [address] [id number] [place] [address]- 7348 Jan, [facility] [place] [facility] [address] [id number] [place] [address]- 0206 Nov, [facility] [place] [facility] [address] [id number] [place] [address]- 7622 Nov, [facility] [place] [facility] [address] [id number] [place] [address]- 2347 Nov, [facility] [place] [facility] [address] [id number] [place] [address]- 5785 Oct, [facility] [place] [facility] [address] [id number] [place] [address]- 5171 Sep, [facility] [place] [facility] [address] [id number] [place] [address]- 9102 Sep, [facility] [place] [facility] [address] [id number] [place] [address]- 1745 Aug, [facility] [id number] [address]- 8920 Aug, [facility] [id number], [place] [address]- 3024 Aug, [facility] [id number], [place] [address]- 9479 Aug, [facility] [id number] [place] [address]- 7522 Jul, [facility] [id number] [place] [address]51- 3012 May, [facility] [id number] [place] [address] 25856- 5591 Jan, [facility] [id number] [place] [address] 76767- 1793 Nov, [facility] [id number] [place] [address] 55248- 8757 Apr, [facility] [id number] [place] [address] 46476- 8959 Dec, [facility] [id number] [place] [address]- 9948 Nov, IMMUNIZATIONS Vaccine Route Administration Date Status FLUARIX QUAD (3 AND UP) 2016 IM Intramuscular Aug 18, 2017 Administered PPSV23 (PNEUMOVAX) IM Intramuscular Aug 18, 2017 Administered SOCIAL HISTORY Never Assessed REASON FOR VISIT Hyperinsulin and f/u with her C-Pap machine-[facility] DONG PLAN OF CARE Activity Details Follow Up 4 Weeks Reason:depression VITAL SIGNS Height 67 in 2017-08-18 Weight 201.2 lbs 2017-08-18 Temperature 98.5 degrees Fahrenheit 2017-08-18 Heart Rate 78 bpm 2017-08-18 Respiratory Rate 20 2017-08-18 BMI 31.51 kg/m2 2017-08-18 Blood pressure systolic 120 mmHg 2017-08-18 Blood pressure diastolic 76 mmHg 2017-08-18 MEDICATIONS Medication Instructions Dosage Frequency Start Date End Date Duration Status Zofran 4 MG Orally 3 times a day 1 tablet 8h May, 07 days Active Crestor 10 mg Orally Once a day 1 tablet 24h 08 Aug, 2017 14 days Active Tramadol HCl 50 mg Orally 4 times a day PRN PAIN 1-2 tablets Active Metoprolol Tartrate 25 MG Orally Twice a day 1 tablet with food 12h Active Ventolin HFA 108 (90 Base) MCG/ACT Inhalation every 6 hrs 2 puffs as needed 6h Aug, Active Aspirin 325 MG Orally Once a day 1 tablet 24h Apr, 30 days Active Vitamin D3 2000 UNIT Orally Once a day 1 capsule 24h Active Effexor XR 75 MG Orally 2 times a day 1 capsule with the 150mg tab 12h 30 Active Xeljanz 5 mg 1 Tablet by Oral route 2 times per day Dec, Active Albuterol Sulfate (2.5 MG/3ML) 0.083% Inhalation every 4 hours 3 ml as needed for cough or wheeze 4h 13 Jul, 2014 90 days Active Advair Diskus 100-50 MCG/DOSE Inhalation Twice a day 1 puff 12h Jul, 30 Active Trulicity 1.5 MG/0.5ML Subcutaneous once weekly INJECT 0.5 MLS SUBCUTANEOUSLY ONCE A WEEK 28 Active Gabapentin 600 MG Orally Three times a day 1 capsule 8h Nov, 30 day(s) Active Omeprazole 40 MG Orally Once a day 1 capsule 24h 90 Active Cyclobenzaprine HCl 10 MG Orally 2 times a day 1 tablet as needed 12h 19 Jul, 2016 30 Active Morphine Sulfate 15 mg Orally Once a day PRN PAIN .5 tablet February, Active RESULTS No Results PROCEDURES Procedure Date Ordered Result Body Site PPSV23 (PNEUMOVAX) Aug 18, 2017 ADMN PNEUMCOC VAC NO FEE SCHED DAY Aug 18, 2017 SINGLE IMMUNIZATION ADMIN Aug 18, 2017 FLUARIX QUAD (3 AND UP) 2016Aug 18, 2017 FQ VISIT ESTABLISHED PATIENT Aug 18, 2017 IMMUNIZATION ADMIN, EACH ADD (please include units) Aug 18, 2017 INSTRUCTIONS MEDICATIONS ADMINISTERED No Known Medications MEDICAL (GENERAL) HISTORY Type Description Date Medical History Cardiovascular feytfvky-BTE-Dkggxklt, non-obstructive per HC ( 01/2011) Dr. Mendoza Medical History Stress test 03/07/13-Dr. Kelly Dietrich normal Medical History Hypertension Medical History Asthma Medical History Gastrointestinal Disorder--IBS, GERD, Hx of fatty liver Medical History Hernia 1979 Medical History Cervical dysplasia 02/16-Pap LGS[place]-mild dysplasia Medical History Hyperlipidemia Medical History Rheumatoid [...] Kidney injury 07/10/15-07/11/2015 Hospitalization History Symptomatic Hypokalemia/Nause-[facility]ia [facility] 05/13/16 Hospitalization History Stroke 05/03/2017 Hospitalization History stroke 08/24/2017--09/01/2017
--- OUTSIDE RECORDS SUMMARY | 2018-06-12 16:12 | XMS REPORT ---
Author Author LORI SNOWDEN Organization [facility] Address [address] [place] [address] Care Team Providers Care Aircraft Magneto Mechanic Name Role Phone LORI SNOWDEN Unavailable PROBLEMS Type Condition ICD9-CM Code [id number] Code Onset Dates Condition Status SNOMED Code Problem ADHD (attention deficit hyperactivity disorder), combined type F90.2 Active 50492504 Problem Other usp (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 Active 816668944 Problem Generalized anxiety disorder F41.1 Active 40345966 Problem Cerebrovascular accident (CVA), unspecified mechanism I63.9 Active 150245740 Problem Asthma J45.909 Active 828451156 Problem Dysthymic disorder F34.1 Active 27334731 Problem Rheumatoid arthritis involving multiple sites, unspecified rheumatoid factor presence M06.9 Active 121476283 Problem Sleep apnea in adult G47.30 Active 23174317 Problem Seasonal allergies J30.2 Active 324750613 Problem Mild episode of recurrent major depressive disorder F33.0 Active 736361966 Problem Rheumatoid arthritis M06.9 Active 41186079 Problem Chronic pain syndrome G89.4 Active 599107241 Problem Hypertension I10 Active 82649490 Problem Anxiety F41.9 Active 09219572 Problem Gastroesophageal reflux disease with esophagitis K21.0 Active 649365910 Problem Panic attacks F41.0 Active 883484555 Problem Irritable bowel syndrome with diarrhea K58.0 Active 433108357 Problem Mixed hyperlipidemia E78.2 Active 563599874 Problem Hyperinsulinemia E16.1 Active 92432602 Problem Weight gain R63.5 Active 3435797 Problem Arteriosclerotic coronary artery disease I25.10 Active 45937327 Problem Chronic obstructive pulmonary disease, unspecified J44.9 Active 87187319029809001 Problem Obstructive sleep apnea G47.33 Active 48257767 Problem Neuropathy G62.9 Active 288462973 Problem Other insomnia G47.09 Active 280583243 ALLERGIES No Information ENCOUNTERS Encounter Location Date Diagnosis [facility] [id number] [place] [address] 32790- 8859 Mar, [facility] [id number] [place] [address] 79197- 4451 Mar, Seasonal allergies J30.2 [facility] [id number] [place] [address] 39412- 5873 Mar, Seasonal allergies J30.2 [facility] [address] 33407- 4237 February, Generalized anxiety disorder F41.1 [facility] [address] 23303 -8112 February, Cough R05 and Seasonal allergies J30.2 [facility] [id number] [place] [address] 12267- 0383 February, Generalized anxiety disorder F41.1 and Mild episode of recurrent major depressive disorder F33.0 [facility] [id number] [place] [address] 44918- 0135 February, Other usp (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 ; Anxiety F41.9 ; Panic attacks F41.0 and Irritable bowel syndrome with diarrhea K58.0 [facility] [id number] [place] [address] 88317- 6433 February, [facility] [id number] [place] [address] 90068- 3630 Jan, Mixed hyperlipidemia E78.2 [facility] [id number] [place] [address] 63369- 3437 Jan, [facility] [id number] [place] [address] 77211- 2419 Jan, [facility] [id number] [place] [address] 93518- 6115 Jan, [facility] [address] 65157- 2366 Jan, [facility] [id number] [place] [address] 24440- 8933 Dec, [facility] [id number] [place] [address] 50985- 3926 Dec, [facility] [id number] [place] [address] 21043- 1936 Dec, [facility] [id number] [place] [address] 51207- 5774 Nov, Dysthymic disorder F34.1 [facility] [id number] [place] [address] 93422- 1239 Oct, [facility] [id number] [place] [address] 948416 Oct, [facility] [address] 32841- 0091 Oct, [facility] [id number] [place] [address] 20185- 2565 Oct, Diarrhea, unspecified type R19.7 and Dysuria R30.0 [facility] [id number] [place] [address] 410557- 6846 Oct, [facility] [id number] [place] [address] 36537- 2601 Sep, [facility] [id number] [place] [address] 00175- 1256 Sep, [facility] [id number] [place] [address] 861312- 0844 Sep, Anxiety F41.9 [facility] [id number] [place] [address] 204465- 0776 Sep, Cerebrovascular accident (CVA), unspecified mechanism I63.9 ; Mixed hyperlipidemia E78.2 ; Gastroesophageal reflux disease with esophagitis K21.0 and Anxiety F41.9 [facility] [id number] [place] [address] 20731- 6372 Sep, [facility] [address] 40722- 4332 Aug, Chronic obstructive pulmonary disease, unspecified J44.9 ; Asthma J45.909 ; Nausea R11.0 ; Dysthymic disorder F34.1 ; Cerebrovascular accident (CVA), unspecified mechanism I63.9 and Rheumatoid arthritis M06.9 [facility] [id number] [place] [address] 61945- 7723 Aug, Nausea R11.0 ; Encounter for immunization Z23 ; Sleep apnea in adult G47.30 ; Rheumatoid arthritis involving multiple sites, unspecified rheumatoid factor presence M06.9 ; Generalized anxiety disorder F41.1 ; Dysthymic disorder F34.1 and Asthma J45.909 [address] [id number] [place] [address] 25385- 6074 Jul, [facility] [address] 81632- 5167 May, ADHD (attention deficit hyperactivity disorder), combined type F90.2 ; Generalized anxiety disorder F41.1 and Persistent depressive disorder F34.1 [address] [id number] [place] [address] 60958- 8196 May, Cerebrovascular accident (CVA), unspecified mechanism I63.9 [facility] [id number] [place] [address] 45563- 5356 Apr, Mixed hyperlipidemia E78.2 and Cerebrovascular accident (CVA ), unspecified mechanism I63.9 [facility] [id number] [place] [address] 65277- 5781 Apr, Generalized anxiety disorder F41.1 [address] [id number] [place] [address] 04924- 1906 Apr, Bronchitis J40 and Tobacco use Z72.[address] 75793- 8708 Apr, Mixed hyperlipidemia E78.2 [facility] [id number] [place] [address] 68807- 3044 Apr, Other usp (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 [facility] [id number] [place] [address] 03088- 4232 Apr, [facility] [address] 42100- 0791 Apr, Generalized anxiety disorder F41.1 [facility] [id number] [place] [address] 34148- 2584 Apr, Obstructive sleep apnea G47.33 and Hyperinsulinemia E16.1 [facility] [id number] [place] [address] 60675- 6453 Apr, ADHD (attention deficit hyperactivity disorder), combined type F90.2 ; Generalized anxiety disorder F41.1 and Persistent depressive disorder F34.1 [facility] [id number] [place] [address] 16405- 3749 Mar, [facility] [id number] [place] [address] 33067- 6525 Mar, Generalized anxiety disorder F41.1 [facility] [id number] [place] [address] 64638- 7553 Mar, Tarsal tunnel syndrome of both lower extremities G57.53 [facility] [id number] [place] [address] 94274- 3046 February, [facility] [id number] [place] [address] 84211- 6791 February, [facility] [id number] [place] [address] 60680- 4691 February, Asthma J45.909 [facility] [id number] [place] [address] 82803- 6985 February, Generalized anxiety disorder F41.1 [facility] [id number] [place] [address] 35487- 0831 February, Hypoxemia R09.02 ; Hyperglycemia R73.9 ; Rheumatoid arthritis M06.9 and Generalized anxiety disorder F41.1 [facility] [id number] [place] [address] 74958- 8625 February, [facility] [address] 91674- 6452 Jan, Chronic obstructive pulmonary disease, unspecified J44.9 [facility] [address] 14337- 6600 Jan, Chronic pain syndrome G89.4 [facility] [address] 48946- 7872 Jan, Hypoxemia R09.02 [facility] [address] 81019- 3129 Jan, [facility] [address] 33233- 2272 Jan, Chronic obstructive pulmonary disease, unspecified J44.9 ; Hypoxemia R09.02 ; Other insomnia G47.09 and Left anterior shoulder pain M25.512 [facility] [id number] [place] [address] 63165- 5492 Jan, Numbness in feet R20.0 and Neuropathy G62.9 [facility] [id number] [place] [address] 42307- 2855 Jan, [facility] [address] 82223- 8679 Dec, Acute pain of left shoulder M25.512 [facility] [address] 51087- 6475 Dec, Acute pain of left shoulder M25.512 [facility] [id number] [place] [address] 30228- 8764 Dec, Generalized anxiety disorder F41.1 [facility] [address] [place] [address] 48827- 0896 Dec, Generalized anxiety disorder F41.1 [facility] [id number] [place] [address] 76613- 7986 Nov, ADHD (attention deficit hyperactivity disorder), combined type F90.2 ; Generalized anxiety disorder F41.1 and Persistent depressive disorder F34.1 [facility] [id number] [place] [address] 27161- 5526 Nov, Acute pain of left shoulder M25.512 [facility] [id number] [place] [address] 08107- 8396 Nov, ADHD (attention deficit hyperactivity disorder), combined type F90.2 ; Generalized anxiety disorder F41.1 and Persistent depressive disorder F34.1 [facility] [id number] [place] [address] 92188- 3096 Nov, Chronic pain syndrome G89.4 [facility] [id number] [place] [address] 88039- 0897 Nov, Chronic pain syndrome G89.4 [facility] [id number] [place] [address] 68246 2546 08 Nov, 2016 Acute pain of left shoulder M25.512 [facility] [id number] [place] [address] 89604- 2976 Nov, Generalized anxiety disorder F41.1 [facility] [id number] [place] [address] 98298 2546 06 Nov, 2016 Acute pain of left shoulder M25.512 [facility] [id number] [place] [address] 69712 2546 Nov, ADHD (attention deficit hyperactivity disorder), combined type F90.2 ; Generalized anxiety disorder F41.1 and Persistent depressive disorder F34.1 [facility] [id number] [place] [address] 83525- 7014 Nov, Acute pain of left shoulder M25.512 ; Generalized anxiety disorder F41.1 ; Chronic pain syndrome G89.4 ; Hyperinsulinemia E16.1 ; Pain of left foot M79.672 and Pain in right foot M79.671 [facility] [id number] [place] [address] 16605- 1161 Oct, ADHD (attention deficit hyperactivity disorder), combined type F90.2 ; Generalized anxiety disorder F41.1 and Dysthymic disorder F34.1 [facility] [id number] [place] [address] 81517- 7301 Sep, [facility] [id number] [place] [address] 27931- 6156 Sep, [facility] [id number] [place] [address] 03651- 1994 Sep, Routine gynecological examination V72.31 ; Cervical cancer screening Z12.4 ; Breast cancer screening Z12.39 ; Colon cancer screening Z12.11 ; Hypokalemia E87.6 ; Herpes simplex type 1 infection B00.9 and Abscess of right axilla L02.411 [facility] [id number] [place] [address] 00413- 2743 Sep, [facility] [address] [place] [address] 95178- 4892 Sep, ADHD (attention deficit hyperactivity disorder), combined type F90.2 ; Generalized anxiety disorder F41.1 and Dysthymic disorder F34.1 [facility] [address] [place] [address] 27063- 0152 Aug, [facility] [id number] [place] [address] 44356- 6542 Aug, [facility] [id number] [place] [address] 08828- 8135 Aug, Generalized anxiety disorder F41.1 [facility] [id number] [place] [address] 55338- 5703 Aug, ADHD (attention deficit hyperactivity disorder), combined type F90.2 ; Generalized anxiety disorder F41.1 and Dysthymic disorder F34.[address] 03874- 6561 Jul, Chronic pain syndrome G89.4 ; Hypertension I10 ; Hypokalemia E87.6 ; Asthma J45.909 and Nausea R11.0 [facility] [address] 05659- 5013 Jul, [facility] [address] 39277- 9037 Jul, Asthma J45.[address] 74610- 9369 Jul, ADHD (attention deficit hyperactivity disorder), combined type F90.2 ; Generalized anxiety disorder F41.1 and Dysthymic disorder F34.1 [facility] [address] 15320- 4930 Jul, [address] 43064- 6011 Jul, Hypertension I10 ; Arteriosclerotic coronary artery disease I25.10 ; Mixed hyperlipidemia E78.2 ; Other [employer] (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 and Hyperglycemia R73.9 [place] [id number] [place] [address] 40929- 9489 16 Jun, 2016 Hypokalemia E87.6 and Hyperglycemia R73.9 [facility] [id number] [place] [address] 35319- 7399 14 Jun, [address] 50901- 0854 13 Jun, 2016 Abnormal kidney function N28.9 [facility] [id number] [place] [address] 98336- 7550 09 Jun, 2016 [place] [id number] [address]- 6767 Jun, ADHD (attention deficit hyperactivity disorder), combined type F90.2 ; Generalized anxiety disorder F41.1 and Dysthymic disorder F34.1 [facility] [address] 28481- 3486 Jun, Generalized anxiety disorder F41.1 and Dysthymic disorder F34.1 [facility] [address] 46846- 9713 Jun, Hypokalemia E87.6 [facility] [address] 26680- 6417 May, Hypokalemia E87.6 ; Vertigo R42 and Hyperinsulinemia E16.1 [facility] [address] 23765- 7505 May, [facility] [address] 22891- 7738 May, Abnormal kidney function N28.9 ; Hyperinsulinemia E16.1 and Nausea R11.0 [facility] [address] 35660- 0902 May, Hypokalemia E87.6 ; Nausea R11.0 ; Epigastric pain R10.13 ; Dehydration E86.0 ; Diaphoresis R61 and Right arm pain M79.601 [facility] [id number] [place] [address] 30918- 6244 May, [facility] [address] 42715- 0144 May, Hypokalemia E87.6 [facility] [address] 53072- 6944 May, Hypokalemia E87.6 [facility] [id number] [place] [address] 79835- 9654 Apr, [facility] [address] [place] [address] 29581- 4269 Apr, ADHD (attention deficit hyperactivity disorder), combined type F90.2 ; Generalized anxiety disorder F41.1 and Dysthymic disorder F34.1 [facility] [id number] [place] [address] 70113- 3431 Apr, Right arm pain M79.601 and Hyperinsulinemia E16.1 [facility] [id number] [place] [address] 59980- 0264 Mar, [facility] [id number] [place] [address] 91175- 9971 Mar, [facility] [id number] [place] [address] 32183- 3240 Mar, Hyperinsulinemia E16.1 ; Hyperlipidemia, unspecified hyperlipidemia type E78.5 ; Central venous catheter in place Z78.9 ; Generalized anxiety disorder F41.1 and Urinary tract infection, site not specified N39.0 [facility] [id number] [place] [address] 31095- 4023 Mar, ADHD (attention deficit hyperactivity disorder), combined type F90.2 ; Generalized anxiety disorder F41.1 and Dysthymic disorder F34.1 [facility] [id number] [place] [address] 20651- 6083 February, ADHD (attention deficit hyperactivity disorder), combined type F90.2 ; Generalized anxiety disorder F41.1 and Dysthymic disorder F34.1 [facility] [address] [address]- 9920 February, [facility] [id number] [place] [address] 03190- 8385 February, [facility] [id number] [place] [address] 00932- 3358 February, Hypertension I10 and Weight gain R63.5 [facility] [id number] [place] [address] 23236- 8810 February, Major depressive disorder, recurrent, moderate F33.1 and Generalized anxiety disorder F41.1 [facility] [id number] [place] [address] 47170- 9750 February, ADHD (attention deficit hyperactivity disorder), combined type F90.2 ; Generalized anxiety disorder F41.1 and Dysthymic disorder F34.1 [facility] [id number] [place] [address] 90502- 3106 February, [facility] [id number] [place] [address] 73466- 0619 February, Asthma J45.909 ; Weight gain R63.5 ; Hypertension I10 ; Rheumatoid arthritis M06.9 and Chronic pain syndrome G89.4 [facility] [id number] [place] [address] 98452- 6319 Jan, ADHD (attention deficit hyperactivity disorder), combined type F90.2 ; Generalized anxiety disorder F41.1 and Dysthymic disorder F34.1 [facility] [id number] [place] [address] 27517- 8036 Dec, ADHD (attention deficit hyperactivity disorder), combined type F90.2 ; Generalized anxiety disorder F41.1 and Dysthymic disorder F34.1 [facility] [address] [place] [address] 09165- 5966 Dec, [facility] [id number] [place] [address] 64766- 6081 Nov, [facility] [id number] [place] [address] 47021- 0154 Nov, [facility] [id number] [place] [address] 19636- 4309 Nov, [facility] [id number] [place] [address] 00756- 5959 Nov, [facility] [id number] [place] [address] 97243- 8617 Oct, [facility] [address] [address]- 9303 Oct, [facility] [id number] [place] [address] 37735- 4716 Oct, [facility] [address] [address]- 9716 Sep, [facility] [id number] [place] [address] 22305- 8573 Sep, [facility] [address] [place] [address] 84382- 0249 Sep, Agoraphobia with panic disorder F40.01 ; Attention-deficit hyperactivity disorder, combined type F90.2 and Dysthymic disorder F34.1 [facility] [id number] [address]- 6493 Aug, [facility] [id number] [address]- 2395 Aug, [facility] [address] [place] [address] 94940- 0855 Aug, [facility] [id number] [place] [address] 45092- 5275 Aug, Dysthymic disorder F34.1 ; Generalized anxiety disorder F41.1 and ADHD (attention deficit hyperactivity disorder), combined type F90.2 [facility] [address] [address]- 4100 Aug, ADHD (attention deficit hyperactivity disorder), combined type F90.2 ; Generalized anxiety disorder F41.1 and Dysthymic disorder F34.1 [facility] [address] [address]- 5121 Jul, Urinary tract infection, site not specified N39.0 ; Hypotension, unspecified I95.9 and Breast cancer screening Z12.39 [facility] [address] [place] [address] 19104- 0572 Jul, [facility] [id number] [place] [address] 70305- 7699 Jul, [facility] [id number] [place] [address] 05983- 2778 Jul, Urinary tract infection, site not specified N39.0 ; Nausea R11.0 ; Gastroenteritis K52.9 ; Renal failure N19 and Other hypotension I95.89 [facility] [id number] [place] [address] 53704- 1349 Jul, [facility] [id number] [place] [address] 73426- 0950 Jul, [facility] [id number] [place] [address] 64305- 4662 Jul, [facility] [id number] [place] [address] 44943- 3838 Jun, [facility] [id number] [place] [address] 49963- 7975 Jun, Major depression in partial remission 296.25 ; Generalized anxiety disorder 300.02 and ADHD, predominantly inattentive type 314.01 [facility] [id number] [place] [address] 52194- 9903 May, [facility] [id number] [place] [address] 56414- 7910 Apr, Major depressive disorder, recurrent episode, severe, without mention of psychotic behavior 296.33 ; Agoraphobia with panic disorder 300.21 and Generalized anxiety disorder 300.02 [facility] [id number] [place] [address] 97945- 5782 Apr, ADHD (attention deficit hyperactivity disorder), combined type 314.01 ; Generalized anxiety disorder 300.02 and Dysthymic disorder 300.4 [facility] [id number] [place] [address] 24987- 9713 Apr, CAD (coronary artery disease) 414.00 ; HTN (hypertension) 401.9 and Tobacco use 305.1 [facility] [id number] [place] [address] 36391- 0230 Apr, [facility] [id number] [place] [address] [id number]- 3404 Mar, ADHD (attention deficit hyperactivity disorder), combined type 314.01 ; Generalized anxiety disorder 300.02 ; Dysthymic disorder 300.4 ; No condition on [place] II V71.09 ; Rheumatoid arthritis 714.0 ; Incontinence 788.30 ; Irritable bowel syndrome 564.1 ; Osteoporosis 733.00 and Chronic pain 338.29 [facility] [id number] [place] [address] 32003- 5033 Mar, Agoraphobia with panic disorder 300.21 and Major depressive disorder, recurrent episode, moderate 296.32 [facility] [id number] [place] [address] 32015- 9773 Mar, [facility] [id number] [place] [address] 40693- 0970 February, [facility] [id number] [place] [address] 66784- 0744 February, Agoraphobia with panic disorder 300.21 and Major depressive disorder, recurrent episode, moderate 296.32 [facility] [id number] [place] [address] 75204- 9930 February, [facility] [id number] [place] [address] 00529- 0486 Jan, [facility] [id number] [place] [address] 23251- 2470 Jan, [facility] [id number] [place] [address] 28848- 3219 Dec, [facility] [id number] [place] [address] 31132- 6211 Dec, [facility] [address] [address]- [address]782 Dec, [facility] [place] [facility] [address] [id number] [place] [address] 3987 Dec, [facility] [place] [facility] [address] [id number] [place] [address]- 6251 Dec, [facility] [place] [facility] [address] [facility] [id number] [place] [address]- 9824 Dec, [facility] [place] [facility] [address] [id number] [place] [address]- 7473 Nov, [facility] [place] [facility] [address] [id number] [place] [address]- 2097 Nov, [facility] [place] [facility] [address] [facility] [id number] [place] [address]- 9745 Nov, [facility] [place] [facility] [address] [facility] [id number] [place] [address]- 7058 Nov, [facility] [place] [facility] [address] [facility] [id number] [place] [address]- 7167 Nov, [facility] [place] [facility] [address] [facility] [id number] [place] [address]- 1405 Nov, [facility] [place] [facility] [address] [facility] [id number] [place] [address]- 1808 Nov, [facility] [place] [facility] [address] [facility] [id number] [place] [address]- 4246 Nov, [facility] [place] [facility] [address] [facility] [id number] [address]- 5708 Oct, [facility] [place] [facility] [address] [facility] [id number] [place] [address]- 4422 Oct, [facility] [place] [facility] [address] [facility] [id number] [place] [address]- 3012 Oct, [facility] [place] [facility] [address] [facility] [id number] [address]- 2697 Oct, [facility] [place] [facility] [address] [id number] [place] [address]- 0504 Oct, [facility] [place] [facility] [address] [id number] [place] [address]- 3958 Oct, [facility] [place] [facility] [address] [id number] [place] [address]- 0486 Sep, [facility] [place] [facility] [address] [id number] [place] [address]- 8571 Sep, [facility] [place] [facility] [address] [id number] [place] [address]- 4692 Sep, [facility] [place] [facility] [address] [id number] [place] [address]- 7813 Sep, [facility] [place] [facility] [address] [id number] [place] [address]- 0558 Sep, [facility] [place] [facility] [address] [id number] [place] [address]- 2999 Sep, [facility] [place] [facility] [address] [id number] [place] [address]- 4574 Sep, [facility] [place] [facility] [address] [id number] [place] [address]- 5534 Aug, [facility] [place] [facility] [address] [id number] [place] [address]- 7703 Aug, [facility] [place] [facility] [address] [id number] [place] [address]- 5861 Aug, [facility] [place] [facility] [address] [id number] [place] [address]- 2201 Aug, [facility] [place] [facility] [address] [id number] [place] [address]- 5462 Aug, [facility] [place] [facility] [address] [id number] [place] [address]- 8047 Aug, [facility] [place] [facility] [address] [id number] [place] [address]- 5791 Jul, [facility] [place] [facility] [address] [id number] [place] [address]- 7556 Jul, [facility] [place] [facility] [address] [id number] [place] [address]- 4226 Jul, [facility] [place] [facility] [address] [id number] [place] [address]- 2546 Jul, [facility] [place] [facility] [address] [id number] [place] [address] 2541 Jul, [facility] [place] [facility] [address] [id number] [place] [address]- 3717 Jul, [facility] [place] [facility] [address] [id number] [place] [address]- 9891 Jun, [facility] [place] [facility] [address] [id number] [place] [address]- 9087 Jun, [facility] [place] [facility] [address] [id number] [place] [address]- 3872 May, [facility] [place] [facility] [address] [id number] [place] [address]- 9203 May, [facility] [place] [facility] [address] [id number] [place] [address]- 8566 Apr, [facility] [place] [facility] [address] [id number] [place] [address]- 7544 Apr, [facility] [place] [facility] [address] [id number], [place] [address] 2540 Apr, [facility] [place] [facility] [address] [id number] [place] [address]- 2548 Apr, [facility] [place] [facility] [address] [id number] [place] [address]- 1293 Mar, [facility] [place] [facility] [address] [id number] [place] [address]- 2546 Mar, [facility] [place] [facility] [address] [id number] [place] [address]- 5148 Mar, [facility] [address] [id number] [place] [address]- 7666 Mar, [facility] [place] [facility] [address] [id number] [place] [address]- 1205 February, [facility] [address] [id number] [place] [address]- 2970 February, [facility] [place] [facility] [address] [id number] [place] [address]- 8043 February, [facility] [address] [id number] [place] [address]- 0587 February, [facility] [place] [facility] [address] [id number] [place] [address]- 3166 February, [facility] [address] [id number] [place] [address]- 9017 February, [facility] [address] [id number] [place] [address]- 9529 Jan, [facility] [place] [facility] [address] [id number] [place] [address]- 2514 Jan, [facility] [address] [id number] [place] [address]- 1006 Dec, [facility] [place] [facility] [address] [id number] [place] [address]- 2897 Dec, [facility] [place] [facility] [address] [id number] [place] [address]- 0107 Nov, [facility] [place] [facility] [address] [id number] [place] [address]- 5431 Nov, [facility] [place] [facility] [address] [id number] [place] [address]- 5518 Oct, [facility] [place] [facility] [address] [id number] [place] [address]- 2455 Oct, [facility] [address] [id number] [place] [address]- 2908 Oct, [facility] [place] [facility] [address] [id number] [place] [address]- 4843 Oct, [facility] [place] [facility] [address] [id number] [place] 9406 Sep, [facility] [place] [facility] [address] [id number] [place] [address]- 4743 Sep, [facility] [place] [facility] [address] [id number] [place] 1893 Sep, [facility] [place] [facility] [address] [id number] [place] [address]- 1696 Sep, [facility] [place] [facility] [address] [id number] [place] [address]- 2605 Sep, [facility] [place] [facility] [address] [id number] [address]- 8185 Sep, [facility] [place] [facility] [address] [id number] [place] [address]- 7825 Sep, [facility] [place] [facility] [address] [id number][place] [address]- 4241 Sep, [facility] [place] [facility] [address] [id number][place] [address]- 7386 Aug, [facility] [place] [facility] [address] [id number][place] [address]- 7329 Aug, [facility] [place] [facility] [address] [id number][place] [address]- 2750 Aug, [facility] [place] [facility] [address] [id number], [place] [address]- 4870 Aug, [facility] [place] [facility] [address] [facility] [id number][place] [address]- 7589 Aug, [facility] [place] [facility] [address] [id number], [place] [address]- 9802 Aug, [facility] [address] [id number] [place] [address]- 9514 Aug, [facility] [place] [facility] [address] [id number], [place] [address]- 7725 Aug, [facility] [place] [facility] [address] [facility] [id number] [place] [address]- 6609 Aug, [facility] [place] [facility] [address] [id number] [place] [address]- 4831 Jul, [facility] [address] [id number] [place] [address]- 9055 Jun, [facility] [place] [facility] [address] [id number] [place] [address]- 8675 May, [facility] [address]65[address] [address]- 9076 May, [facility] [place] [facility] [address] [id number] [place] [address]- 9318 May, [facility] [place] [facility] [address] [id number] [place] [address]- 9490 Apr, [facility] [place] [facility] [address] [id number] [place] [address]- 0022 Mar, [facility] [place] [facility] [address] [id number], [place] [address]- 4243 February, [facility] [place] [facility] [address] [id number], [place] [address]- 5106 Oct, [facility] [place] [facility] [address] [id number], [place] [address]- 3800 16 Oct, 2012 [facility] [place] [facility] [address] [facility] [id number], [place] [address]- 8552 Oct, [facility] [place] [facility] [address] [facility] [id number][place] [address]- 6682 Oct, [facility] [place] [facility] [address] [id number] [place] [address] 2545 Oct, [facility] [place] [facility] [address] [id number] [place] [address]- 9913 Oct, [facility] [place] [facility] [address] [id number] [place] [address]- 7432 Sep, [facility] [place] [facility] [address] [id number] [place] [address]- 9136 Sep, [facility] [place] [facility] [address] [id number] [place] [address]- 7126 Aug, [facility] [place] [facility] [address] [id number] [place] [address]- 5490 Aug, [facility] [place] [facility] [address] [id number] [place] 7000 Jul, [facility] [place] [facility] [address] [id number] [place] [address]- 4967 Jul, [facility] [place] [facility] [address] [id number] [place] [address]- 9797 Jul, [facility] [place] [facility] [address] [id number] [place] [address]- 8953 Jul, [facility] [place] [facility] [address] [id number] [place] [address]- 9132 Jul, [facility] [place] [facility] [address] [id number] [place] [address]- 8309 Jul, [facility] [place] [facility] [address] [id number] [place] [address]- 6982 Jul, [facility] [place] [facility] [address] [id number] [place] [address]- 8202 Jul, [facility] [place] [facility] [address] [id number] [place] [address]- 2546 16 Jun, 2012 [facility] [place] [facility] [address] [id number] [place] [address]- 5548 Jun, [facility] [place] [facility] [address] [id number] [place] [address]- 0867 May, [facility] [place] [facility] [address] [id number] [place] [address]- 6985 Apr, [facility] [place] [facility] [address] [id number] [place] [address]- 1502 Mar, [facility] [place] [facility] [address] [id number] [place] [address]- 3292 Mar, [facility] [place] [facility] [address] [id number] [place] [address]- 3775 Mar, [facility] [place] [facility] [address] [id number] [place] [address]- 0017 Mar, [facility] [place] [facility] [address] [id number] [place] [address]- 7855 Jan, [facility] [place] [facility] [address] [id number] [place] [address]- 0160 Nov, [facility] [place] [facility] [address] [id number] [place] [address]- 8101 Nov, [facility] [place] [facility] [address] [id number] [place] [address]- 0078 Nov, [facility] [place] [facility] [address] [id number] [place] [address]- 2744 Oct, [facility] [place] [facility] [address] [id number] [place] [address]- 3027 Sep, [facility] [place] [facility] [address] [id number] [place] [address]- 2479 Sep, [facility] [place] [facility] [address] [facility] [id number] [place] [address]- 0685 Aug, [facility] [place] [facility] [address] [id number] [place] [address]- 3377 Aug, [facility] [place] [facility] [address] [address]- 6376 Aug, [facility] [id number] [address]- 3126 Aug, [facility] [id number] [address]- 3306 Jul, [facility] [id number] [address]- 8786 May, [facility] [address], [place] [address]- 8099 Jan, [facility] [id number] [place] [address] 61019- 5779 Nov, [facility] [id number] [address]- 1276 Apr, [facility] [id number], [place] [address]- 0270 Dec, [facility] [address] [id number] [address]- 6606 Nov, IMMUNIZATIONS No Known Immunizations SOCIAL HISTORY Never Assessed REASON FOR VISIT med per lab result PLAN OF CARE VITAL SIGNS MEDICATIONS Medication Instructions Dosage Frequency Start Date End Date Duration Status Bactrim DS 800-160 MG Orally Twice a day-voucher 1 tablet Oct, Oct, 07 days Active RESULTS No Results PROCEDURES No Known procedures INSTRUCTIONS MEDICATIONS ADMINISTERED No Known Medications MEDICAL (GENERAL) HISTORY Type Description Date Medical History Cardiovascular pvthdtee-HEY-Osvfovbi, 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 Mendoza Medical History Stress test 03/07/13-Dr. Kelly Dietrich normal Medical History Hypertension Medical History Asthma Medical History Gastrointestinal Disorder--IBS, GERD, Hx of fatty liver Medical History Hernia 1979 Medical History Cervical dysplasia 02/16-Pap LGSIL/[place]-mild dysplasia Medical History Hyperlipidemia Medical History Rheumatoid [...] injury 07/10/15-07/11/2015 Hospitalization History Symptomatic Hypokalemia/Nause-[facility] 05/13/16 Hospitalization History Stroke 05/03/2017 Hospitalization History stroke 08/24/2017--09/01/2017
--- OUTSIDE RECORDS SUMMARY | 2018-06-12 16:12 | XMS REPORT ---
Author Author WILMA DIEGO [facility] Address [address] [place] [address] Care Team Providers Care Robot Operator Name Role Phone WILMA DIEGO Unavailable PROBLEMS Type Condition ICD9-CM Code HCV40-DP Code Onset Dates Condition Status SNOMED Code Problem Chronic obstructive pulmonary disease, unspecified J44.9 Active 13614368075420173 Problem Other jail (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 Active 941939108 Problem Obstructive sleep apnea G47.33 Active 30321289 Problem Anxiety F41.9 Active 44640426 Problem ADHD (attention deficit hyperactivity disorder), combined type F90.2 Active 06671406 Problem Gastroesophageal reflux disease with esophagitis K21.0 Active 840758733 Problem Generalized anxiety disorder F41.1 Active 10789977 Problem Sleep apnea in adult G47.30 Active 29903513 Problem Cerebrovascular accident (CVA), unspecified mechanism I63.9 Active 477731596 Problem Rheumatoid arthritis involving multiple sites, unspecified rheumatoid factor presence M06.9 Active 575653921 Problem Dysthymic disorder F34.1 Active 62947384 Problem Chronic pain syndrome G89.4 Active 698795738 Problem Asthma J45.909 Active 640208353 Problem Weight gain R63.5 Active 9880584 Problem Rheumatoid arthritis M06.9 Active 25486412 Problem Arteriosclerotic coronary artery disease I25.10 Active 77507113 Problem Hyperinsulinemia E16.1 Active 37552194 Problem Hypertension I10 Active 08789249 Problem Neuropathy G62.9 Active 020821678 Problem Mixed hyperlipidemia E78.2 Active 372814798 Problem Other insomnia G47.09 Active 364199096 ALLERGIES No Information ENCOUNTERS Encounter Location Date Diagnosis [facility] [address] [facility] [id number] [address] Jan, [facility] [address] [id number], [place] [address] 9851 Dec, [facility] [id number] [place] [address] 27322- 7169 Dec, [facility] [id number] [place] [address] 956576- 4515 Dec, [facility] [id number] [place] [address] 095746- 5630 Nov, Dysthymic disorder F34.1 [facility] [id number] [place] [address] 08004- 6845 Oct, [facility] [id number] [place] [address] 742497- 0932 Oct, [facility] [id number] [place] [address] 83448- 2377 Oct, [facility] [id number] [place] [address] 21935- 0172 Oct, Diarrhea, unspecified type R19.7 and Dysuria R30.0 [facility] [id number] [place] [address] 04484- 0305 Oct, [facility] [id number] [place] [address] 86930- 2489 Sep, [facility] [id number] [place] [address] 15156- 9228 Sep, [facility] [id number] [place] [address] 248900- 9226 Sep, Anxiety F41.9 [facility] [id number] [place] [address] 67881- 8859 Sep, Cerebrovascular accident (CVA), unspecified mechanism I63.9 ; Mixed hyperlipidemia E78.2 ; Gastroesophageal reflux disease with esophagitis K21.0 and Anxiety F41.9 [facility] [id number] [place] [address] 85945- 2684 Sep, [facility] [address] 86468- 6631 Aug, Chronic obstructive pulmonary disease, unspecified J44.9 ; Asthma J45.909 ; Nausea R11.0 ; Dysthymic disorder F34.1 ; Cerebrovascular accident (CVA), unspecified mechanism I63.9 and Rheumatoid arthritis M06.9 [place] [address] 01116- 7563 Aug, Nausea R11.0 ; Encounter for immunization Z23 ; Sleep apnea in adult G47.30 ; Rheumatoid arthritis involving multiple sites, unspecified rheumatoid factor presence M06.9 ; Generalized anxiety disorder F41.1 ; Dysthymic disorder F34.1 and Asthma J45.909 [place] [address] 02807- 7874 Jul, [address] 21056- 8876 May, ADHD (attention deficit hyperactivity disorder), combined type F90.2 ; Generalized anxiety disorder F41.1 and Persistent depressive disorder F34.1 [place] [address] 35258- 3125 May, Cerebrovascular accident (CVA), unspecified mechanism I63.9 [place] [address] 81514- 4402 Apr, Mixed hyperlipidemia E78.2 and Cerebrovascular accident (CVA ), unspecified mechanism I63.9 [place] [address] 87623- 4042 Apr, Generalized anxiety disorder F41.[address] 27952- 4734 Apr, Bronchitis J40 and Tobacco use Z72.0 [place] [address] 17685- 5100 Apr, Mixed hyperlipidemia E78.2 [place] [address] [place] [address]- 4466 Apr, Other emt intermediate (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 [place] [id number] [place] [address] 09559- 5550 Apr, [facility] [id number] [place] [address] 41768- 8354 Apr, Generalized anxiety disorder F41.1 [place] [address] 55436- 9626 Apr, Obstructive sleep apnea G47.33 and Hyperinsulinemia E16.1 [place] [address] 17643- 0278 Apr, ADHD (attention deficit hyperactivity disorder), combined type F90.2 ; Generalized anxiety disorder F41.1 and Persistent depressive disorder F34.1 [place] [id number] [place] [address] 32957- 8541 Mar, [place] [address] 90749- 0461 Mar, Generalized anxiety disorder F41.1 [place] [address] 74407- 9745 Mar, Tarsal tunnel syndrome of both lower extremities G57.53 [place] [id number] [place] [address] 52351- 0495 February, [place] [id number] [place] [address] 39259- 6781 February, [facility] [id number] [place] [address] 51258- 2051 February, Asthma J45.909 [place] [id number] [place] [address] 62391- 6061 February, Generalized anxiety disorder F41.1 [facility] [id number] [place] [address] 45107- 7811 February, Hypoxemia R09.02 ; Hyperglycemia R73.9 ; Rheumatoid arthritis M06.9 and Generalized anxiety disorder F41.1 [place] [id number] [place] [address] 11798- 2803 February, [place] [id number] [place] [address] 07288- 1146 Jan, Chronic obstructive pulmonary disease, unspecified J44.9 [place] [address] 44325- 5028 Jan, Chronic pain syndrome G89.4 [place] [address] 10745- 5172 Jan, Hypoxemia R09.02 [place] [address] 53403- 7448 Jan, [place] [address] 84111- 8125 Jan, Chronic obstructive pulmonary disease, unspecified J44.9 ; Hypoxemia R09.02 ; Other insomnia G47.09 and Left anterior shoulder pain M25.512 [place] [address] 18192- 0142 Jan, Numbness in feet R20.0 and Neuropathy G62.9 [place] [id number] [place] [address] 94616- 0127 Jan, [place] [address] 83167- 9063 Dec, Acute pain of left shoulder M25.512 [place] [id number] [place] [address] 31738- 2050 Dec, Acute pain of left shoulder M25.512 [place] [id number] [place] [address] 14683- 0223 Dec, Generalized anxiety disorder F41.1 [place] [id number] [place] [address] 35759- 3986 Dec, Generalized anxiety disorder F41.1 [facility] [id number] [place] [address] 16659- 0262 Nov, ADHD (attention deficit hyperactivity disorder), combined type F90.2 ; Generalized anxiety disorder F41.1 and Persistent depressive disorder F34.1 [facility] [id number] [place] [address] 69886- 6759 Nov, Acute pain of left shoulder M25.512 [facility] [id number] [place] [address] 50099- 8378 Nov, ADHD (attention deficit hyperactivity disorder), combined type F90.2 ; Generalized anxiety disorder F41.1 and Persistent depressive disorder F34.1 [facility] [id number] [place] [address] 96333- 4791 Nov, Chronic pain syndrome G89.4 [facility] [id number] [place] [address] 00797- 1486 Nov, Chronic pain syndrome G89.4 [facility] [id number] [place] [address] 45019- 6879 08 Nov, 2016 Acute pain of left shoulder M25.512 [facility] [id number] [place] [address] 80911- 3546 07 Nov, 2016 Generalized anxiety disorder F41.1 [facility] [id number] [place] [address] 67583 2540 Nov, Acute pain of left shoulder M25.512 [facility] [id number] [place] [address] 46660 2540 Nov, ADHD (attention deficit hyperactivity disorder), combined type F90.2 ; Generalized anxiety disorder F41.1 and Persistent depressive disorder F34.1 [facility] [id number] [place] [address] 91396- 0381 Nov, Acute pain of left shoulder M25.512 ; Generalized anxiety disorder F41.1 ; Chronic pain syndrome G89.4 ; Hyperinsulinemia E16.1 ; Pain of left foot M79.672 and Pain in right foot M79.671 [place] [id number] [place] [address] 59699- 2557 Oct, ADHD (attention deficit hyperactivity disorder), combined type F90.2 ; Generalized anxiety disorder F41.1 and Dysthymic disorder F34.1 [place] [address] 32337- 3593 Sep, [place] [address] 98911- 8724 Sep, [address] 36999- 4987 Sep, Routine gynecological examination V72.31 ; Cervical cancer screening Z12.4 ; Breast cancer screening Z12.39 ; Colon cancer screening Z12.11 ; Hypokalemia E87.6 ; Herpes simplex type 1 infection B00.9 and Abscess of right axilla L02.411 [place] [id number] [place] [address] 01643- 6812 Sep, [address] 42215- 7934 Sep, ADHD (attention deficit hyperactivity disorder), combined type F90.2 ; Generalized anxiety disorder F41.1 and Dysthymic disorder F34.1 [place] [id number] [place] [address] 43522- 0925 Aug, [place] [id number] [place] [address] 55071- 6153 Aug, [place] [id number] [place] [address] 87606- 5372 Aug, Generalized anxiety disorder F41.1 [place] [id number] [place] [address] 36065- 0431 Aug, ADHD (attention deficit hyperactivity disorder), combined type F90.2 ; Generalized anxiety disorder F41.1 and Dysthymic disorder F34.1 [place] [id number] [place] [address] 55203- 9947 Jul, Chronic pain syndrome G89.4 ; Hypertension I10 ; Hypokalemia E87.6 ; Asthma J45.909 and Nausea R11.0 [place] [id number] [place] [address] 45356- 6629 Jul, [place] [address] 70872- 1974 Jul, Asthma J45.909 [place] [address] 43999- 2518 Jul, ADHD (attention deficit hyperactivity disorder), combined type F90.2 ; Generalized anxiety disorder F41.1 and Dysthymic disorder F34.1 [place] [id number] [place] [address] 60890- 6431 Jul, [place] [address] 55809- 2006 Jul, Hypertension I10 ; Arteriosclerotic coronary artery disease I25.10 ; Mixed hyperlipidemia E78.2 ; Other emt intermediate (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 and Hyperglycemia R73.9 [place] [id number] [place] [address] 50371- 7342 16 Jun, 2016 Hypokalemia E87.6 and Hyperglycemia R73.9 [place] [id number] [place] [address] 60974- 3643 14 Jun, 2016 [place] [id number] [place] [address] 79874- 0618 13 Jun, 2016 Abnormal kidney function N28.9 [place] [id number] [place] [address] 24976- 6743 09 Jun, 2016 [place] [id number] [place] [address] 44066- 4174 Jun, ADHD (attention deficit hyperactivity disorder), combined type F90.2 ; Generalized anxiety disorder F41.1 and Dysthymic disorder F34.1 [place] [address] 10855- 1259 Jun, Generalized anxiety disorder F41.1 and Dysthymic disorder F34.1 [place] [address] 39203- 1234 Jun, Hypokalemia E87.6 [place] [address] 12846- 1617 May, Hypokalemia E87.6 ; Vertigo R42 and Hyperinsulinemia E16.1 [place] [address] 02938- 2181 May, [place] [address] 18120- 7459 May, Abnormal kidney function N28.9 ; Hyperinsulinemia E16.1 and Nausea R11.0 [place] [address] 67284- 1863 May, Hypokalemia E87.6 ; Nausea R11.0 ; Epigastric pain R10.13 ; Dehydration E86.0 ; Diaphoresis R61 and Right arm pain M79.601 [place] [address] 61665- 4622 May, [place] [address] 68954- 9931 May, Hypokalemia E87.6 [place] [address] 00021- 1572 May, Hypokalemia E87.6 [place] [address] 06745- 1188 Apr, [place] [address] 75951- 0958 Apr, ADHD (attention deficit hyperactivity disorder), combined type F90.2 ; Generalized anxiety disorder F41.1 and Dysthymic disorder F34.1 [place] [id number] [place] [address] 56488- 0332 Apr, Right arm pain M79.601 and Hyperinsulinemia E16.1 [place] [id number] [place] [address] 83652- 3433 Mar, [place] [id number] [place] [address] 17567- 5851 Mar, [place] [id number] [place] [address] 99674- 2317 Mar, Hyperinsulinemia E16.1 ; Hyperlipidemia, unspecified hyperlipidemia type E78.5 ; Central venous catheter in place Z78.9 ; Generalized anxiety disorder F41.1 and Urinary tract infection, site not specified N39.0 [place] [id number] [place] [address] 37353- 1466 Mar, ADHD (attention deficit hyperactivity disorder), combined type F90.2 ; Generalized anxiety disorder F41.1 and Dysthymic disorder F34.1 [place] [id number] [place] [address] 08810- 6909 February, ADHD (attention deficit hyperactivity disorder), combined type F90.2 ; Generalized anxiety disorder F41.1 and Dysthymic disorder F34.1 [place] [id number] [place] [address] 47293- 8684 February, [place] [id number] [place] [address] 03947- 9283 February, [place] [id number] [place] [address] 19115- 3532 February, Hypertension I10 and Weight gain R63.5 [place] [id number] [place] [address] 01887- 9195 February, Major depressive disorder, recurrent, moderate F33.1 and Generalized anxiety disorder F41.1 [place] [address] [id number] [address]- 2908 February, ADHD (attention deficit hyperactivity disorder), combined type F90.2 ; Generalized anxiety disorder F41.1 and Dysthymic disorder F34.1 [facility] [id number] [place] [address] 82457- 2254 February, [facility] [id number] [place] [address] 02397- 0840 February, Asthma J45.909 ; Weight gain R63.5 ; Hypertension I10 ; Rheumatoid arthritis M06.9 and Chronic pain syndrome G89.4 [facility] [id number] [place] [address] 04410- 9286 Jan, ADHD (attention deficit hyperactivity disorder), combined type F90.2 ; Generalized anxiety disorder F41.1 and Dysthymic disorder F34.1 [facility] [id number] [place] [address] 60814- 2117 Dec, ADHD (attention deficit hyperactivity disorder), combined type F90.2 ; Generalized anxiety disorder F41.1 and Dysthymic disorder F34.1 [facility] [id number] [place] [address] 65014- 2665 Dec, [facility] [id number] [place] [address] 90673- 4583 Nov, [facility] [id number] [place] [address] 81112- 5048 Nov, [facility] [id number] [place] [address] 14367- 4414 Nov, [facility] [id number] [place] [address] 15358- 9555 Nov, [facility] [id number] [place] [address] 82629- 2017 Oct, [facility] [id number] [place] [address] 55982- 0223 Oct, [facility] [address], [place] [address]- 3992 Oct, [facility] [address], [place] [address]- 5711 Sep, [facility] [address], [place] [address]- 6307 Sep, [facility] [id number] [place] [address] 36708- 6077 Sep, Agoraphobia with panic disorder F40.01 ; Attention-deficit hyperactivity disorder, combined type F90.2 and Dysthymic disorder F34.1 [facility] [id number] [place] [address] 17346- 2645 Aug, [facility] [address], [place] [address]- 2331 Aug, [facility] [id number] [address]- 9353 Aug, [facility] [address], [place] [address]- 7238 Aug, Dysthymic disorder F34.1 ; Generalized anxiety disorder F41.1 and ADHD (attention deficit hyperactivity disorder), combined type F90.2 [facility] [address] [address]- 3519 Aug, ADHD (attention deficit hyperactivity disorder), combined type F90.2 ; Generalized anxiety disorder F41.1 and Dysthymic disorder F34.1 [facility] [address], [place] [address]- 5437 Jul, Urinary tract infection, site not specified N39.0 ; Hypotension, unspecified I95.9 and Breast cancer screening Z12.39 [facility] [address], [place] [address]- 6109 Jul, [facility] [id number] [place] [address] 33074- 8533 Jul, [facility] [id number] [place] [address] 36377- 1078 Jul, Urinary tract infection, site not specified N39.0 ; Nausea R11.0 ; Gastroenteritis K52.9 ; Renal failure N19 and Other hypotension I95.89 [facility] [id number] [place] [address] 90447- 2728 Jul, [facility] [address] 56563- 2883 Jul, [facility] [address] 25600- 9169 Jul, [place] [address] 52555- 3177 Jun, [place] [id number] [place] [address] 60393- 7983 Jun, Major depression in partial remission 296.25 ; Generalized anxiety disorder 300.02 and ADHD, predominantly inattentive type 314.01 [place] [id number] [place] [address] 36236- 2676 May, [place] [address] 00284- 6351 Apr, Major depressive disorder, recurrent episode, severe, without mention of psychotic behavior 296.33 ; Agoraphobia with panic disorder 300.21 and Generalized anxiety disorder 300.02 [place] [id number] [place] [address] 11651- 3879 Apr, ADHD (attention deficit hyperactivity disorder), combined type 314.01 ; Generalized anxiety disorder 300.02 and Dysthymic disorder 300.[address] 59305- 5802 Apr, CAD (coronary artery disease) 414.00 ; HTN (hypertension) 401.9 and Tobacco use 305.[address] 94978- 4474 Apr, [facility] [id number] [place] [address] 472025- 0251 Mar, ADHD (attention deficit hyperactivity disorder), combined type 314.01 ; Generalized anxiety disorder 300.02 ; Dysthymic disorder 300.4 ; No condition on [place] V71.09 ; Rheumatoid arthritis 714.0 ; Incontinence 788.30 ; Irritable bowel syndrome 564.1 ; Osteoporosis 733.00 and Chronic pain 338.29 [facility] [id number] [place] [address] 253071- 2260 Mar, Agoraphobia with panic disorder 300.21 and Major depressive disorder, recurrent episode, moderate 296.32 [facility] [id number] [place] [address] 072319- 4040 Mar, [facility] [id number] [place] [address] 81215- 1533 February, [facility] [id number] [place] [address] 22276- 7885 February, Agoraphobia with panic disorder 300.21 and Major depressive disorder, recurrent episode, moderate 296.32 [facility] [id number] [place] [address] 743600- 6826 February, [facility] [id number] [place] [address] 23549- 0842 Jan, [facility] [id number] [place] [address] 21224- 7245 Jan, [facility] [id number] [place] [address] 82994- 2393 Dec, [facility] [id number] [place] [address] 00099368- 6440 Dec, [facility] [id number] [place] [address] 051343- 8524 Dec, [facility] [id number] [place] [id number]- 2551 Dec, [facility] [place] [facility] [address] [id number] [place] [address] Dec, [facility] [place] [facility] [address] [id number] [place] [address] Dec, [facility] [place] [facility] [address] [facility] [id number] [place] [address] Nov, [facility] [place] [facility] [address] [id number] [place] [address] Nov, [facility] [place] [facility] [address] [id number] [place] [address] Nov, [facility] [place] [facility] [address] [facility] [id number] [place] [address] Nov, [facility] [place] [facility] [address] [facility] [id number] [place] [address]798 Nov, [facility] [place] [facility] [address] [facility] [id number] [place] [address]702 Nov, [facility] [place] [facility] [address] [facility] [id number] [place] [address] Nov, [facility] [place] [facility] [address] [facility] [id number] [place] [address] 1678 Nov, [facility] [place] [facility] [address] [facility] [id number] [place] [address] 1754 Oct, [facility] [place] [facility] [address] [facility] [id number] [address]- 2177 Oct, [facility] [place] [facility] [address] [facility] [id number], [place] [address] Oct, [facility] [place] [facility] [address] [facility] [id number], [place] [address] Oct, [facility] [place] [facility] [address] [facility] [id number], [place] [address] Oct, [facility] [place] [facility] [address] [id number] [place] [address] Oct, [facility] [place] [facility] [address] [id number] [place] [address] 1200 Sep, [facility] [place] [facility] [address] [id number] [place] [address] Sep, [facility] [place] [facility] [address] [id number] [place] [address] Sep, [facility] [place] [facility] [address] [id number] [place] [address] Sep, [facility] [place] [facility] [address] [id number] [place] [address]697 Sep, [facility] [place] [facility] [address] [id number] [place] [address] 73[address] Sep, [facility] [place] [facility] [address] [id number] [place] [address] 3545 Sep, [facility] [place] [facility] [address] [id number] [place] [address] Aug, [facility] [place] [facility] [address] [id number] [place] [address]85 Aug, [facility] [place] [facility] [address] [id number] [place] [address]- 8[address] Aug, [facility] [place] [facility] [address] [id number] [place] [address]- 7364 Aug, [facility] [place] [facility] [address] [id number] [place] [address]- 5910 Aug, [facility] [place] [facility] [address] [id number] [place] [address] 8736 Aug, [facility] [place] [facility] [address] [id number] [place] [address] 17 Jul, 2014 [facility] [place] [facility] [address] [id number] [place] [address] 7977 Jul, [facility] [place] [facility] [address] [id number] [place] [address]- 8952 Jul, [facility] [place] [facility] [address] [id number] [place] [address]- [address]286 Jul, [facility] [place] [facility] [address] [id number] [place] [address]- 7950 Jul, [facility] [place] [facility] [address] [id number] [place] [address]- 2419 Jul, [facility] [place] [facility] [address] [id number] [place] [address]- 3088 Jun, [facility] [place] [facility] [address] [id number] [place] [address]- 3505 Jun, [facility] [place] [facility] [address] [id number] [place] [address] 1323 May, [facility] [place] [facility] [address] [id number] [place] [address]- 2086 May, [facility] [place] [facility] [address] [id number] [place] [address]- [address]255 Apr, [facility] [place] [facility] [address] [id number] [place] [address]- 5878 Apr, [facility] [place] [facility] [address] [id number], [place] [address] Apr, [facility] [place] [facility] [address] [id number], [place] [address]- 44[address] Apr, [facility] [place] [facility] [address] [id number] [place] [address]- 4583 Mar, [facility] [place] [facility] [address] [id number], [place] [address] 8927 Mar, [facility] [place] [facility] [address] [id number] [place] [address]- 3442 Mar, [facility] [place] [facility] [address] [id number] [place] [address]- 5455 Mar, [facility] [place] [facility] [address] [id number] [place] [address] 9558 February, [facility] [place] [facility] [address] [id number] [place] [address]- 1419 February, [facility] [place] [facility] [address] [id number] [place] [address]- [address]443 February, [facility] [place] [facility] [address] [id number] [place] [address]- 7666 February, [facility] [place] [facility] [address] [id number] [place] [address] 6170 February, [facility] [place] [facility] [address] [id number] [place] [address]- 5455 February, [facility] [place] [facility] [address] [id number] [place] [address]- 1730 Jan, [facility] [place] [facility] [address] [id number] [place] [address] 7722 Jan, [facility] [place] [facility] [address] [id number] [place] [address]- 1587 Dec, [facility] [place] [facility] [address] [id number] [place] [address] Dec, [facility] [place] [facility] [address] [id number] [place] [address]- 4312 Nov, [facility] [place] [facility] [address] [id number] [place] [address]- 4693 Nov, [facility] [place] [facility] [address] [id number] [place] [address] Oct, [facility] [place] [facility] [address] [id number] [place] [address]- 7845 Oct, [facility] [place] [facility] [address] [id number] [place] [address]- 7713 Oct, [facility] [address] [id number] [place] [address]- 3511 Oct, [facility] [place] [facility] [address] [id number] [place] [address]- 5556 Sep, [facility] [place] [facility] [address] [id number] [place] [address]- 9456 Sep, [facility] [place] [facility] [address] [id number] [place] [address]- 3926 Sep, [facility] [address] [id number] [place] [address]- 0766 Sep, [facility] [place] [facility] [address] [id number] [place] [address]- 5236 Sep, [facility] [place] [facility] [address] [facility] [id number] [place] [address]- 6188 Sep, [facility] [place] [facility] [address] [id number] [place] [address]- 2537 Sep, [facility] [place] [facility] [address] [id number] [place] [address]- 1191 Sep, [facility] [place] [facility] [address] [id number], [place] [address]- 4248 Aug, [facility] [place] [facility] [address] [id number], [place] [address]- 9509 Aug, [facility] [place] [facility] [address] [id number], [place] [address]- 5502 Aug, [facility] [place] [facility] [address] [id number], [place] [address]- 7738 Aug, [facility] [place] [facility] [address] [id number], [place] [address] 1926 Aug, [facility] [place] [facility] [address] [facility] [id number], [place] [address]- 6476 Aug, [facility] [place] [facility] [address] [id number], [place] [address]- 7118 Aug, [facility] [address] [id number] [place] [address]- 8651 Aug, [facility] [place] [facility] [address] [id number] [place] [address]- 8433 Aug, [facility] [place] [facility] [address] [id number] [place] [address]- 2446 Jul, [facility] [place] [facility] [address] [id number] [place] [address]- 7409 Jun, [facility] [place] [facility] [address] [id number] [place] [address]- 7729 May, [facility] [place] [facility] [address] [id number] [place] [address]- 9638 May, [facility] [address] [id number] [place] [address]- 2956 May, [facility] [place] [facility] [address] [id number] [place] [address]- 4844 Apr, [facility] [place] [facility] [address] [id number] [place] [address]- 1233 Mar, [facility] [place] [facility] [address] [id number] [place] [address]- 0548 February, [facility] [place] [facility] [address] [id number], [place] [address]- 8218 Oct, [facility] [place] [facility] [address] [id number], [place] [address]- 8975 Oct, [facility] [place] [facility] [address] [id number] [place] [address]- 1600 Oct, [facility] [place] [facility] [address] [id number] [place] [address]- 2651 Oct, [facility] [place] [facility] [address] [id number] [place] [address]- 0223 Oct, [facility] [place] [facility] [address] [id number] [place] [address]- 3296 Oct, [facility] [place] [facility] [address] [id number] [place] [address]- 3556 Sep, [facility] [place] [facility] [address] [id number] [place] [address]- 2036 Sep, [facility] [place] [facility] [address] [id number] [place] [address]- 5276 Aug, [facility] [place] [facility] [address] [id number] [place] [address]- 4730 Aug, [facility] [place] [facility] [address] [id number] [place] [address]- 9410 Jul, [facility] [place] [facility] [address] [id number] [place] [address] Jul, [facility] [place] [facility] [address] [id number] [place] [address]- 6588 Jul, [facility] [place] [facility] [address] [id number] [place] [address]- 5273 Jul, [facility] [place] [facility] [address] [id number] [place] [address]- 4425 Jul, [facility] [place] [facility] [address] [id number] [place] 4723 Jul, [facility] [place] [facility] [address] [id number] [place] [address]- 5840 Jul, [facility] [place] [facility] [address] [id number] [place] [address]- 7566 Jul, [facility] [place] [facility] [address] [id number] [place] [address]- 2296 16 Jun, 2012 [facility] [place] [facility] [address] [id number] [place] [address]- 2546 Jun, [facility] [place] [facility] [address] [id number] [place] [address]- 8379 May, [facility] [place] [facility] [address] [id number] [place] [address]- 3918 Apr, [facility] [place] [facility] [address] [id number] [place] [address]- 8828 Mar, [facility] [place] [facility] [address] [id number] [place] [address]- 2927 Mar, [facility] [place] [facility] [address] [id number] [place] [address]- 9560 Mar, [facility] [place] [facility] [address] [id number] [place] [address]- 3489 Mar, [facility] [place] [facility] [address] [id number] [place] [address]- 6643 Jan, [facility] [place] [facility] [address] [id number] [place] [address]- 7542 Nov, [facility] [place] [facility] [address] [id number] [place] [address]- 1227 Nov, [facility] [place] [facility] [address] [id number] [place] [address]- 7030 Nov, [facility] [place] [facility] [address] [id number] [place] [address]- 3715 Oct, [facility] [place] [facility] [address] [id number] [place] [address]- 7008 Sep, [facility] [place] [facility] [address] [id number] [place] [address]- 6189 Sep, [facility] [place] [facility] [address] [id number] [place] [address]- 6054 Aug, [facility] [place] [facility] [address] [id number] [place] [address]- 3422 Aug, [facility] [place] [facility] [address] [id number] [place] [address]- 0934 Aug, [facility] [place] [facility] [id number], [place] [address]- 1826 Aug, [facility] [id number] [address] Jul, [facility] [id number], [place] [address]- 5826 May, [facility] [id number], [place] [address]- 0592 Jan, [facility] [id number], [place] [address]- 1166 Nov, [facility] [address] [id number] [place] [address]- 7650 Apr, [facility] [id number], [place] [address]- 3856 Dec, [facility] [id number], [place] [address] 1940 Nov, IMMUNIZATIONS No Known Immunizations SOCIAL HISTORY Never Assessed REASON FOR VISIT BH f/u PLAN OF CARE Activity Details Follow Up 1 Week Reason: F/U VITAL SIGNS MEDICATIONS Unknown Medications RESULTS No Results PROCEDURES Procedure Date Ordered Result Body Site [facility] VIS[facility] ESTAB PT May 18, 2017 Psychotherapy, patient &/family, 45 minutes, established patient May 18, 2017 INSTRUCTIONS MEDICATIONS ADMINISTERED No Known Medications MEDICAL (GENERAL) HISTORY Type Description Date Medical History Cardiovascular vyhmlwgj-YWF-Gbwykusg, 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 Mendoza Medical History Stress test 03/07/13-Dr. Kelly Dietrich normal Medical History Hypertension Medical History Asthma Medical History Gastrointestinal Disorder--IBS, GERD, Hx of fatty liver Medical History Hernia 1979 Medical History Cervical dysplasia 02/16-Pap LGSIL/[place]-mild dysplasia Medical History Hyperlipidemia Medical History Rheumatoid [...]
--- OUTSIDE RECORDS SUMMARY | 2018-06-12 16:14 | XMS REPORT ---
Author Author LORI SNOWDEN Organization 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 Name Role Phone LORI SNOWDEN Unavailable PROBLEMS Type Condition ICD9-CM Code UQD87-IW Code Onset Dates Condition Status SNOMED Code Problem ADHD (attention deficit hyperactivity disorder), combined type F90.2 Active 04723646 Problem Other halfway (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 Active 122566547 Problem Generalized anxiety disorder F41.1 Active 40911522 Problem Cerebrovascular accident (CVA), unspecified mechanism I63.9 Active 976674925 Problem Asthma J45.909 Active 625608946 Problem Dysthymic disorder F34.1 Active 66307445 Problem Rheumatoid arthritis involving multiple sites, unspecified rheumatoid factor presence M06.9 Active 812334052 Problem Sleep apnea in adult G47.30 Active 21980417 Problem Seasonal allergies J30.2 Active 998672574 Problem Mild episode of recurrent major depressive disorder F33.0 Active 708658707 Problem Rheumatoid arthritis M06.9 Active 20863169 Problem Chronic pain syndrome G89.4 Active 297178847 Problem Hypertension I10 Active 26020385 Problem Anxiety F41.9 Active 25763912 Problem Gastroesophageal reflux disease with esophagitis K21.0 Active 855259257 Problem Panic attacks F41.0 Active 154859880 Problem Irritable bowel syndrome with diarrhea K58.0 Active 743664666 Problem Mixed hyperlipidemia E78.2 Active 368521686 Problem Hyperinsulinemia E16.1 Active 21025559 Problem Weight gain R63.5 Active 8500931 Problem Arteriosclerotic coronary artery disease I25.10 Active 06574644 Problem Chronic obstructive pulmonary disease, unspecified J44.9 Active [id number] Problem Obstructive sleep apnea G47.33 Active 74957561 Problem Neuropathy G62.9 Active 635341292 Problem Other insomnia G47.09 Active 500509460 ALLERGIES No Information ENCOUNTERS Encounter Location Date Diagnosis [facility] [id number] [place] [address] 88684- 9427 Mar, [facility] [id number] [place] [address] 44262- 3689 Mar, Seasonal allergies J30.2 [facility] [id number] [place] [address] 68357- 2291 February, Generalized anxiety disorder F41.1 [facility] [id number] [place] [address] 37997 -8569 February, Cough R05 and Seasonal allergies J30.2 [facility] [address] 93373- 1579 February, Generalized anxiety disorder F41.1 and Mild episode of recurrent major depressive disorder F33.0 [facility] [id number] [place] [address] 64747- 3716 February, Other halfway (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 ; Anxiety F41.9 ; Panic attacks F41.0 and Irritable bowel syndrome with diarrhea K58.0 [facility] [id number] [place] [address] 92473- 6472 February, [facility] [id number] [place] [address] 50704- 1027 Jan, Mixed hyperlipidemia E78.2 [facility] [id number] [place] [address] 79791- 7272 Jan, [facility] [id number] [place] [address] 45902- 9411 Jan, [facility] [address] 57354- 9690 Jan, [facility] [id number] [place] [address] 01144- 0496 Jan, [facility] [id number] [place] [address] 53238- 9929 Dec, [facility] [id number] [place] [address] 38168- 3709 Dec, [facility] [id number] [place] [address] 14399- 8408 Dec, [facility] [id number] [place] [address] 881081- 8301 Nov, Dysthymic disorder F34.1 [facility] [address] 56576- 0122 Oct, [facility] [id number] [place] [address] 50144- 6162 Oct, [facility] [id number] [place] [address] 53393- 3048 Oct, [facility] [id number] [place] [address] 79128- 7073 Oct, Diarrhea, unspecified type R19.[address] [facility] [id number] [place] [address] 50298- 3227 Oct, [facility] [id number] [place] [address] 74013- 5037 Sep, [facility] [id number] [place] [address] 57637- 7698 Sep, [facility] [id number] [place] [address] 61235- 1198 Sep, Anxiety F41.9 [facility] [id number] [place] [address] 16049- 2089 Sep, Cerebrovascular accident (CVA), unspecified mechanism I63.9 ; Mixed hyperlipidemia E78.2 ; Gastroesophageal reflux disease with esophagitis K21.[address] [facility] [id number] [place] [address] 87305- 6255 Sep, [facility] [address] [place] [address] 2118 Aug, Chronic obstructive pulmonary disease, unspecified J44.9 ; Asthma J45.909 ; Nausea R11.0 ; Dysthymic disorder F34.1 ; Cerebrovascular accident (CVA), unspecified mechanism I63.9 and Rheumatoid arthritis M06.9 [place] [address] 66812- 5275 Aug, Nausea R11.0 ; Encounter for immunization Z23 ; Sleep apnea in adult G47.30 ; Rheumatoid arthritis involving multiple sites, unspecified rheumatoid factor presence M06.9 ; Generalized anxiety disorder F41.1 ; Dysthymic disorder F34.1 and Asthma J45.909 [place] [address] 42579- 1734 Jul, [place] [address] 92485- 4691 May, ADHD (attention deficit hyperactivity disorder), combined type F90.2 ; Generalized anxiety disorder F41.1 and Persistent depressive disorder F34.1 [place] [address] 62040- 5689 May, Cerebrovascular accident (CVA), unspecified mechanism I63.9 [place] [id number] [place] [address] 93055- 3541 Apr, Mixed hyperlipidemia E78.2 and Cerebrovascular accident (CVA ), unspecified mechanism I63.9 [place] [id number] [place] [address] 07779- 0993 Apr, Generalized anxiety disorder F41.1 [place] [address] 50390- 9047 Apr, Bronchitis J40 and Tobacco use Z72.0 [place] [id number] [place] [address] 10914- 2055 Apr, Mixed hyperlipidemia E78.2 [place] [address] 46447- 3896 Apr, Other halfway (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 [facility] [id number] [place] [address] 16005- 6318 Apr, [facility] [id number] [place] [address] 02908- 3370 Apr, Generalized anxiety disorder F41.1 [facility] [id number] [place] [address] 86929- 3985 Apr, Obstructive sleep apnea G47.33 and Hyperinsulinemia E16.1 [place] [id number] [place] [address] 42108- 4430 Apr, ADHD (attention deficit hyperactivity disorder), combined type F90.2 ; Generalized anxiety disorder F41.1 and Persistent depressive disorder F34.1 [place] [id number] [place] [address] 44418- 9032 Mar, [place] [id number] [place] [address] 77722- 8950 Mar, Generalized anxiety disorder F41.1 [place] [id number] [place] [address] 87259- 9899 Mar, Tarsal tunnel syndrome of both lower extremities G57.53 [place] [id number] [place] [address] 23477- 6594 February, [facility] [id number] [place] [address] 52977- 4205 February, [facility] [id number] [place] [address] 91785- 6235 February, Asthma J45.909 [facility] [id number] [place] [address] 64289- 6705 February, Generalized anxiety disorder F41.1 [facility] [id number] [place] [address] 51941- 5271 February, Hypoxemia R09.02 ; Hyperglycemia R73.9 ; Rheumatoid arthritis M06.9 and Generalized anxiety disorder F41.1 [facility] [id number] [place] [address] 70550- 7025 February, [facility] [address] 33733- 9473 Jan, Chronic obstructive pulmonary disease, unspecified J44.9 [facility] [address] 91384- 9481 Jan, Chronic pain syndrome G89.4 [place] [address] 49015- 5944 Jan, Hypoxemia R09.02 [place] [address] 48134- 7389 Jan, [place] [address] 77400- 6039 Jan, Chronic obstructive pulmonary disease, unspecified J44.9 ; Hypoxemia R09.02 ; Other insomnia G47.09 and Left anterior shoulder pain M25.512 [place] [address] 02231- 1899 Jan, Numbness in feet R20.0 and Neuropathy G62.9 [place] [id number] [place] [address] 83648- 0637 Jan, [place] [id number] [place] [address] 88816- 1978 Dec, Acute pain of left shoulder M25.512 [place] [id number] [place] [address] 46984- 1570 Dec, Acute pain of left shoulder M25.512 [place] [address] 20111- 3960 Dec, Generalized anxiety disorder F41.1 [facility] [id number] [place] [address] 36879- 9691 Dec, Generalized anxiety disorder F41.1 [facility] [address] [address]- 3668 Nov, ADHD (attention deficit hyperactivity disorder), combined type F90.2 ; Generalized anxiety disorder F41.1 and Persistent depressive disorder F34.1 [facility] [address] [place] [address] 80260- 7018 Nov, Acute pain of left shoulder M25.512 [facility] [id number] [place] [address] 11987- 5792 Nov, ADHD (attention deficit hyperactivity disorder), combined type F90.2 ; Generalized anxiety disorder F41.1 and Persistent depressive disorder F34.1 [facility] [id number] [place] [address] 50331- 7931 Nov, Chronic pain syndrome G89.4 [facility] [id number] [place] [address] 08276- 4580 Nov, Chronic pain syndrome G89.4 [facility] [id number] [place] [address] 66508- 8215 Nov, Acute pain of left shoulder M25.512 [facility] [address] [place] [address] 62495- 9911 Nov, Generalized anxiety disorder F41.1 [facility] [address] [address]- 7209 Nov, Acute pain of left shoulder M25.512 [facility] [address] [place] [address] 45209- 2924 Nov, ADHD (attention deficit hyperactivity disorder), combined type F90.2 ; Generalized anxiety disorder F41.1 and Persistent depressive disorder F34.1 [facility] [address] [address]- 6076 Nov, Acute pain of left shoulder M25.512 ; Generalized anxiety disorder F41.1 ; Chronic pain syndrome G89.4 ; Hyperinsulinemia E16.1 ; Pain of left foot M79.672 and Pain in right foot M79.671 [place] [address] [place] [address] 73626- 9460 Oct, ADHD (attention deficit hyperactivity disorder), combined type F90.2 ; Generalized anxiety disorder F41.1 and Dysthymic disorder F34.1 [place] [address] [place] [address] 33671- 2588 Sep, [place] [id number] [place] [address] 24771- 4692 Sep, [place] [id number] [place] [address] 81666- 8004 Sep, Routine gynecological examination V72.31 ; Cervical cancer screening Z12.4 ; Breast cancer screening Z12.39 ; Colon cancer screening Z12.11 ; Hypokalemia E87.6 ; Herpes simplex type 1 infection B00.9 and Abscess of right axilla L02.411 [place] [id number] [place] [address] 42578- 1077 Sep, [place] [id number] [place] [address] 67767- 0332 Sep, ADHD (attention deficit hyperactivity disorder), combined type F90.2 ; Generalized anxiety disorder F41.1 and Dysthymic disorder F34.1 [place] [address] [place] [address] 40450- 7768 Aug, [place] [address] [place] [address] 13686- 1548 Aug, [place] [id number] [place] [address] 09117- 3443 Aug, Generalized anxiety disorder F41.1 [place] [address] [place] [address] 17881- 3337 Aug, ADHD (attention deficit hyperactivity disorder), combined type F90.2 ; Generalized anxiety disorder F41.1 and Dysthymic disorder F34.1 [place] [address] [place] [address] 70212- 6781 Jul, Chronic pain syndrome G89.4 ; Hypertension I10 ; Hypokalemia E87.6 ; Asthma J45.909 and Nausea R11.0 [place] [id number] [place] [address] 77094- 3524 Jul, [place] [address] 58896- 9241 Jul, Asthma J45.909 [place] [id number] [place] [address] 14454- 1039 Jul, ADHD (attention deficit hyperactivity disorder), combined type F90.2 ; Generalized anxiety disorder F41.1 and Dysthymic disorder F34.1 [place] [id number] [place] [address] 04448- 9341 Jul, [place] [id number] [place] [address] 95520- 0184 Jul, Hypertension I10 ; Arteriosclerotic coronary artery disease I25.10 ; Mixed hyperlipidemia E78.2 ; Other halfway (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 and Hyperglycemia R73.9 [place] [id number] [place] [address] 09407- 7907 16 Jun, 2016 Hypokalemia E87.6 and Hyperglycemia R73.9 [place] [id number] [place] [address] 29597- 9124 14 Jun, 2016 [place] [id number] [place] [address] 83147- 3853 13 Jun, 2016 Abnormal kidney function N28.9 [place] [id number] [place] [address] 59677- 4643 09 Jun, 2016 [place] [id number] [place] [address] 12716- 1328 06 Jun, 2016 ADHD (attention deficit hyperactivity disorder), combined type F90.2 ; Generalized anxiety disorder F41.1 and Dysthymic disorder F34.1 [place] [address] 70460- 7431 Jun, Generalized anxiety disorder F41.1 and Dysthymic disorder F34.1 [place] [address] 99063- 2657 Jun, Hypokalemia E87.6 [place] [address] 28126- 7905 May, Hypokalemia E87.6 ; Vertigo R42 and Hyperinsulinemia E16.1 [place] [address] 293599- 1189 May, [place] [address] 17642- 4791 May, Abnormal kidney function N28.9 ; Hyperinsulinemia E16.1 and Nausea R11.0 [place] [address] 34737- 6333 May, Hypokalemia E87.6 ; Nausea R11.0 ; Epigastric pain R10.13 ; Dehydration E86.0 ; Diaphoresis R61 and Right arm pain M79.601 [place] [address] 20973- 6273 May, [place] [address] 87517- 5605 May, Hypokalemia E87.6 [place] [address] 45287- 1263 May, Hypokalemia E87.6 [place] [address] 82926- 3738 Apr, [place] [address] 28456- 9605 Apr, ADHD (attention deficit hyperactivity disorder), combined type F90.2 ; Generalized anxiety disorder F41.1 and Dysthymic disorder F34.1 [place] [id number] [place] [address] 78985- 2869 Apr, Right arm pain M79.601 and Hyperinsulinemia E16.1 [place] [id number] [place] [address] 87490- 7847 Mar, [place] [address] 10274- 1163 Mar, [place] [id number] [place] [address] 83060- 4810 Mar, Hyperinsulinemia E16.1 ; Hyperlipidemia, unspecified hyperlipidemia type E78.5 ; Central venous catheter in place Z78.9 ; Generalized anxiety disorder F41.1 and Urinary tract infection, site not specified N39.0 [place] [id number] [place] [address] 48194- 6559 Mar, ADHD (attention deficit hyperactivity disorder), combined type F90.2 ; Generalized anxiety disorder F41.1 and Dysthymic disorder F34.1 [place] [id number] [place] [address] 67871- 1004 February, ADHD (attention deficit hyperactivity disorder), combined type F90.2 ; Generalized anxiety disorder F41.1 and Dysthymic disorder F34.1 [place] [id number] [place] [address] 32378- 1963 February, [place] [id number] [place] [address] 84543- 2236 February, [place] [id number] [place] [address] 86435- 3848 February, Hypertension I10 and Weight gain R63.5 [place] [id number] [place] [address] 41044- 8243 February, Major depressive disorder, recurrent, moderate F33.1 and Generalized anxiety disorder F41.1 [place] [address] [place] [address]- 6497 February, ADHD (attention deficit hyperactivity disorder), combined type F90.2 ; Generalized anxiety disorder F41.1 and Dysthymic disorder F34.1 [facility] [id number] [place] [address] 15292- 5916 February, [facility] [id number] [place] [address] 58934- 6297 February, Asthma J45.909 ; Weight gain R63.5 ; Hypertension I10 ; Rheumatoid arthritis M06.9 and Chronic pain syndrome G89.4 [facility] [id number] [place] [address] 34277- 8781 Jan, ADHD (attention deficit hyperactivity disorder), combined type F90.2 ; Generalized anxiety disorder F41.1 and Dysthymic disorder F34.1 [facility] [id number] [place] [address] 49588- 2528 Dec, ADHD (attention deficit hyperactivity disorder), combined type F90.2 ; Generalized anxiety disorder F41.1 and Dysthymic disorder F34.1 [facility] [id number] [place] [address] 85026- 4431 Dec, [facility] [id number] [place] [address] 46045- 8767 Nov, [facility] [id number] [place] [address] 22454- 9640 Nov, [facility] [id number] [place] [address] 09896- 0730 Nov, [facility] [id number] [place] [address] 23331- 0630 Nov, [facility] [id number] [place] [address] 06167- 8839 Oct, [facility] [id number] [place] [address] 77587- 9971 Oct, [facility] [address] [address]- 7754 Oct, [facility] [address] [address]- 9999 Sep, [facility] [address] [address]- 6375 Sep, [facility] [id number] [place] [address] 55063- 1409 Sep, Agoraphobia with panic disorder F40.01 ; Attention-deficit hyperactivity disorder, combined type F90.2 and Dysthymic disorder F34.1 [facility] [id number] [address]- 3964 Aug, [facility] [address] [address]- 1246 Aug, [facility] [id number] [address]- 0020 Aug, [facility] [address] [address]- 5333 Aug, Dysthymic disorder F34.1 ; Generalized anxiety disorder F41.1 and ADHD (attention deficit hyperactivity disorder), combined type F90.2 [facility] [address] [address]- 0034 Aug, ADHD (attention deficit hyperactivity disorder), combined type F90.2 ; Generalized anxiety disorder F41.1 and Dysthymic disorder F34.1 [facility] [id number] [address]- 9394 Jul, Urinary tract infection, site not specified N39.0 ; Hypotension, unspecified I95.9 and Breast cancer screening Z12.39 [facility] [address] [address]- 8329 Jul, [facility] [address] [address]- 7282 Jul, [facility] [address] [address]- 3759 Jul, Urinary tract infection, site not specified N39.0 ; Nausea R11.0 ; Gastroenteritis K52.9 ; Renal failure N19 and Other hypotension I95.89 [facility] [id number] [place] [address] Jul, [facility] [id number] [place] [id number]- [address]337 Jul, [facility] [id number] [place] [address]- [address] Jul, [place] [id number] [place] [address]48- [address]597 Jun, [place] [id number] [place] [address]- [address] Jun, Major depression in partial remission 296.25 ; Generalized anxiety disorder 300.02 and ADHD, predominantly inattentive type 314.01 [place] [id number] [place] [address] 67[address]- [address] May, [place] [id number] [place] [address] 99936- [address] Apr, Major depressive disorder, recurrent episode, severe, without mention of psychotic behavior 296.33 ; Agoraphobia with panic disorder 300.21 and Generalized anxiety disorder 300.02 [place] [id number] [place] [address] 13723- 8522 Apr, ADHD (attention deficit hyperactivity disorder), combined type 314.01 ; Generalized anxiety disorder 300.02 and Dysthymic disorder 300.4 [place] [id number] [place] [address] 72511- 2491 Apr, CAD (coronary artery disease) 414.00 ; HTN (hypertension) 401.9 and Tobacco use 305.1 [place] [id number] [place] [address] 30107[address]228 Apr, [facility] [id number] [place] [address] 8[address]68- 2434 Mar, ADHD (attention deficit hyperactivity disorder), combined type 314.01 ; Generalized anxiety disorder 300.02 ; Dysthymic disorder 300.4 ; No condition on [place] V71.09 ; Rheumatoid arthritis 714.0 ; Incontinence 788.30 ; Irritable bowel syndrome 564.1 ; Osteoporosis 733.[address] [facility] [id number] [place] [address] 80388- 8976 Mar, Agoraphobia with panic disorder 300.21 and Major depressive disorder, recurrent episode, moderate 296.32 [facility] [address] [place], [place] [id number] [place] [address] 758885- 7382 Mar, [facility] [id number] [place] [address] 47806- 6088 February, [facility] [id number] [place] [address] 38244- 5428 February, Agoraphobia with panic disorder 300.21 and Major depressive disorder, recurrent episode, moderate 296.32 [facility] [id number] [place] [address] 306776- 5896 February, [facility] [id number] [place] [address] 067[address]- 2169 Jan, [facility] [id number] [place] [address] 90914- 8550 Jan, [facility] [id number] [place] [address] 17668- 9859 Dec, [facility] [address] 496589- 8039 Dec, [facility] [id number] [place] [address] 458663- 9542 Dec, [facility] [id number] [place] [address] 91772- 5270 Dec, [facility] [place] [facility] [address] [id number] [place] [address]- 0264 Dec, [facility] [place] [facility] [address] [id number] [place] [address]- 9953 Dec, [facility] [place] [facility] [address] [id number] [place] [address]- 9028 Nov, [facility] [place] [facility] [address] [id number] [place] [address]- 8426 Nov, [facility] [place] [facility] [address] [id number] [place] [address]- 1768 Nov, [facility] [place] [facility] [address] [id number] [place] [address]- 2351 Nov, [facility] [place] [facility] [address] [id number] [place] [address]- 1283 Nov, [facility] [place] [facility] [address] [id number] [place] [address]- 2191 Nov, [facility] [place] [facility] [address] [id number] [place] [address]- 9194 Nov, [facility] [place] [facility] [address] [id number] [place] [address]- 5485 Nov, [facility] [place] [facility] [address] [id number] [place] [address]- 3734 Oct, [facility] [place] [facility] [address] [id number] [place] [address]- 7346 Oct, [facility] [place] [facility] [address] [id number] [place] [address]- 5971 Oct, [facility] [place] [facility] [address] [id number] [place] [address]- 9845 Oct, [facility] [place] [facility] [address] [id number] [place] [address]- 7357 Oct, [facility] [place] [facility] [address] [id number] [place] [address]- 3615 05 Oct, 2014 [facility] [place] [facility] [address] [id number] [place] [address]- 3025 Sep, [facility] [place] [facility] [address] [id number] [place] 5106 Sep, [facility] [place] [facility] [address] [id number] [place] [address]- 6370 Sep, [facility] [place] [facility] [address] [id number] [place] [address]- 5502 Sep, [facility] [place] [facility] [address] [id number] [place] [address]- 7312 Sep, [facility] [place] [facility] [address] [id number] [place] [address]- 0558 Sep, [facility] [place] [facility] [address] [id number] [place] [address]- 1902 Sep, [facility] [place] [facility] [address] [id number] [place] [address]- 7762 Aug, [facility] [place] [facility] [address] [id number] [place] [address]- 2066 24 Aug, 2014 [facility] [place] [facility] [address] [facility] [id number] [place] [address]- 3969 Aug, [facility] [place] [facility] [address] [id number] [place] [address]- 2925 Aug, [facility] [place] [facility] [address] [id number] [place] [address]- 3658 Aug, [facility] [place] [facility] [address] [id number] [place] [address]- 3309 Aug, [facility] [place] [facility] [address] [id number] [place] [address]- 9099 Jul, [facility] [place] [facility] [address] [id number] [place] [address]- 8286 Jul, [facility] [place] [facility] [address] [id number] [place] [address]- 8929 Jul, [facility] [place] [facility] [address] [id number] [place] [address]- 8521 Jul, [facility] [place] [facility] [address] [id number] [place] [address]- 0879 Jul, [facility] [place] [facility] [address] [id number] [place] [address]- 8951 Jul, [facility] [place] [facility] [address] [id number] [place] [address]- 8075 Jun, [facility] [place] [facility] [address] [id number] [place] [address]- 3854 Jun, [facility] [place] [facility] [address] [id number] [place] [address]- 7983 May, [facility] [place] [facility] [address] [id number] [place] [address]- 1156 May, [facility] [place] [facility] [address] [id number] [place] 9833 Apr, [facility] [place] [facility] [address] [id number] [place] [address]- 9898 Apr, [facility] [place] [facility] [address] [id number] [address]- 1932 Apr, [facility] [place] [facility] [address] [id number] [address]- 1393 Apr, [facility] [place] [facility] [address] [id number] [place] [address]- 7058 Mar, [facility] [place] [facility] [address] [id number] [place] [address]- 7557 Mar, [facility] [place] [facility] [address] [id number] [address]- 6330 Mar, [facility] [place] [facility] [address] [id number] [address]- 4518 Mar, [facility] [place] [facility] [address] [id number] [place] [address]- 2396 February, [facility] [place] [facility] [address] [id number] [place] [address]- 8854 February, [facility] [place] [facility] [address] [facility] [id number] [place] [address]- 4515 February, [facility] [place] [facility] [address] [id number] [place] [address]- 5301 February, [facility] [place] [facility] [address] [id number] [place] [address]- 5222 February, [facility] [place] [facility] [address] [id number] [place] [address]- 1388 February, [facility] [place] [facility] [address] [facility] [id number] [place] [address]- 8536 Jan, [facility] [place] [facility] [address] [id number] [place] [address]- 8986 Jan, [facility] [place] [facility] [address] [id number] [place] [address]- 7461 Dec, [facility] [place] [facility] [address] [id number] [place] [address]- 4346 Dec, [facility] [place] [facility] [address] [id number] [place] [address]- 3396 Nov, [facility] [place] [facility] [address] [id number] [place] [address]- 3470 Nov, [facility] [place] [facility] [address] [id number] [place] [address]- 0393 Oct, [facility] [place] [facility] [address] [id number] [place] [address]- 9513 Oct, [facility] [place] [facility] [address] [facility] [id number] [place] 3503 Oct, [facility] [place] [facility] [address] [id number] [place] [address]- 5126 Oct, [facility] [address] [id number] [place] [address]- 2241 Sep, [facility] [place] [facility] [address] [id number] [place] [address]- 9390 Sep, [facility] [place] [facility] [address] [id number] [place] [address]- 2660 Sep, [facility] [place] [facility] [address] [id number] [place] [address]- 8154 Sep, [facility] [place] [facility] [address] [id number] [place] [address]- 8146 Sep, [facility] [address] [id number] [place] [address]- 1433 Sep, [facility] [place] [facility] [address] [id number] [place] [address]- 7781 Sep, [facility] [place] [facility] [address] [id number] [place] [address]- 8276 Sep, [facility] [place] [facility] [address] [id number] [place] [address]- 0909 Aug, [facility] [place] [facility] [address] [id number] [place] [address]- 7381 Aug, [facility] [place] [facility] [address] [id number] [place] [address]- 6767 Aug, [facility] [place] [facility] [address] [id number] [place] [address]- 2349 Aug, [facility] [place] [facility] [address] [id number] [place] [address]- 9456 Aug, [facility] [place] [facility] [address] [id number] [place] [address]- 7900 05 Aug, 2013 [facility] [place] [facility] [address] [id number] [place] [address]- 0270 Aug, [facility] [place] [facility] [address] [id number] [place] [address] 254 Aug, [facility] [place] [facility] [address] [id number] [place] [address]- 2546 Aug, [facility] [place] [facility] [address] [id number] [place] [address] 2546 Jul, [facility] [place] [facility] [address] [id number] [place] [address] 2546 Jun, [facility] [place] [facility] [address] [id number] [place] [address]- 0480 May, [facility] [place] [facility] [address] [id number] [place] [address]- 6896 May, [facility] [place] [facility] [address] [id number] [place] [address]- 6083 May, [facility] [place] [facility] [address] [id number] [place] [address]- 6435 Apr, [facility] [place] [facility] [address] [id number] [place] [address]- 0265 Mar, [facility] [place] [facility] [address] [id number] [place] [address]- 3219 February, [facility] [place] [facility] [address] [id number] [place] [address]- 7899 Oct, [facility] [place] [facility] [address] [id number] [place] [address] 2544 Oct, [facility] [place] [facility] [address] [id number] [place] [address]- 8711 Oct, [facility] [place] [facility] [address] [id number] [place] [address]- 1095 Oct, [facility] [place] [facility] [address] [id number] [place] [address]- 2546 Oct, [facility] [place] [facility] [address] [id number] [place] [address]- 8534 Oct, [facility] [address] [id number] [place] 8375 Sep, [facility] [place] [facility] [address] [id number] [place] [address]- 4986 Sep, [facility] [place] [facility] [address] [id number] [place] [address]- 5094 Aug, [facility] [place] [facility] [address] [id number] [place] [address]- 3636 Aug, [facility] [place] [facility] [address] [id number] [place] [address]505 Jul, [facility] [place] [facility] [address] [id number] [place] [address]- 2878 Jul, [facility] [place] [facility] [address] [id number] [place] [address]- 2293 Jul, [facility] [place] [facility] [address] [id number] [place] [address]- 9627 Jul, [facility] [place] [facility] [address] [id number] [place] [address]- 4478 Jul, [facility] [place] [facility] [address] [id number] [place] [address]- 8111 Jul, [facility] [place] [facility] [address] [id number] [place] [address]- 5632 Jul, [facility] [place] [facility] [address] [id number] [place] [address]- 3729 Jul, [facility] [place] [facility] [address] [id number] [place] [address]- 3602 16 Jun, 2012 [facility] [place] [facility] [address] [id number] [place] [address]- 7301 Jun, [facility] [place] [facility] [address] [id number] [place] [address]- 4140 May, [facility] [place] [facility] [address] [id number] [place] [address]- 4935 Apr, [facility] [place] [facility] [address] [id number] [place] [address]- 0694 Mar, [facility] [place] [facility] [address] [id number] [place] [address]- 9202 Mar, [facility] [place] [facility] [address] [id number] [place] [address]- 7107 Mar, [facility] [place] [facility] [address] [id number] [place] [address]- 9873 Mar, [facility] [place] [facility] [address] [id number] [place] [address]- 1731 Jan, [facility] [place] [facility] [address] [id number] [place] [address]- 9942 Nov, [facility] [place] [facility] [address] [id number] [place] [address]- 7701 Nov, [facility] [place] [facility] [address] [id number] [place] [address]- 1497 Nov, [facility] [place] [facility] [address] [id number] [place] [address]- 6052 Oct, [facility] [place] [facility] [address] [id number] [place] [address]- 4933 Sep, [facility] [place] [facility] [address] [id number] [place] [address]- 1359 Sep, [facility] [place] [facility] [address] [id number] [place] [address]- 8299 Aug, [facility] [place] [facility] [address] [id number] [place] [address]- 5314 Aug, [facility] [place] [facility] [address] [id number] [place] [address]17 Aug, [facility] [place] [facility] [address] [id number] [place] [address]- 7386 Aug, [facility] [id number] [address]- [address] Jul, [facility] [id number] [address]- 8686 May, [facility] [id number] [address]- 6075 Jan, [facility] [id number] [place] [address] 32944- [address] Nov, [facility] [id number] [place] [address] 05001- 67[address] Apr, [facility] [id number] [place] [address] 15066- 9661 Dec, [facility] [id number] [place] [address] 59837- 0889 Nov, IMMUNIZATIONS No Known Immunizations SOCIAL HISTORY Never Assessed REASON FOR VISIT Requests return call PLAN OF CARE VITAL SIGNS MEDICATIONS Unknown Medications RESULTS No Results PROCEDURES No Known procedures INSTRUCTIONS MEDICATIONS ADMINISTERED No Known Medications MEDICAL (GENERAL) HISTORY Type Description Date Medical History Cardiovascular yjdvlvvn-BDO-Uhkqwuxc, 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 Mendoza Medical History Stress test 03/07/13-Dr. eKlly Dietrich normal Medical History Hypertension Medical History Asthma Medical History Gastrointestinal Disorder--IBS, GERD, Hx of fatty liver Medical History Hernia 1979 Medical History Cervical dysplasia 02/16-Pap LGSIL/Dexter-mild dysplasia Medical History Hyperlipidemia Medical History Rheumatoid [...] for Rehabilitation 05/13/16 Hospitalization History Stroke 05/03/2017 Hospitalization History stroke 08/24/2017--09/01/2017
--- OUTSIDE RECORDS SUMMARY | 2018-06-12 16:17 | XMS REPORT ---
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 Name Role Phone LORI SNOWDEN Unavailable PROBLEMS Type Condition ICD9-CM Code NOS92-YA Code Onset Dates Condition Status SNOMED Code Problem Chronic obstructive pulmonary disease, unspecified J44.9 Active [id number] Problem 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 Active 551712835 Problem Obstructive sleep apnea G47.33 Active 00943963 Problem Anxiety F41.9 Active 60217523 Problem ADHD (attention deficit hyperactivity disorder), combined type F90.2 Active 15798242 Problem Gastroesophageal reflux disease with esophagitis K21.0 Active 342708960 Problem Generalized anxiety disorder F41.1 Active 55179682 Problem Sleep apnea in adult G47.30 Active 50558358 Problem Cerebrovascular accident (CVA), unspecified mechanism I63.9 Active 883425289 Problem Rheumatoid arthritis involving multiple sites, unspecified rheumatoid factor presence M06.9 Active 712919386 Problem Dysthymic disorder F34.1 Active 40961899 Problem Chronic pain syndrome G89.4 Active 937387422 Problem Asthma J45.909 Active 745363827 Problem Weight gain R63.5 Active 4607661 Problem Rheumatoid arthritis M06.9 Active 33839139 Problem Arteriosclerotic coronary artery disease I25.10 Active 98909155 Problem Hyperinsulinemia E16.1 Active 33132597 Problem Hypertension I10 Active 22167974 Problem Neuropathy G62.9 Active 835835973 Problem Mixed hyperlipidemia E78.2 Active 841486428 Problem Other insomnia G47.09 Active 062978406 ALLERGIES No Information ENCOUNTERS Encounter Location Date Diagnosis [facility] [id number], [place] [address] Dec, [facility] [id number] [place] [address] 11150- 9310 Dec, [facility] [id number] [place] [address] 70104- 0400 Dec, [facility] [id number] [place] [address] Nov, Dysthymic disorder F34.1 [facility] [address] 46200- 4257 Oct, [facility] [address] 17455- 6769 Oct, [address] [address] 39954- 0499 Oct, [facility] [address] 54146- 2979 Oct, Diarrhea, unspecified type R19.7 and Dysuria R30.0 [place] [address] 83366- 0552 Oct, [facility] [id number] [place] [address] 08925- 1976 Sep, [place] [id number] [place] [address] 31106- 1084 Sep, [place] [id number] [place] [address] 33876- 2769 Sep, Anxiety F41.9 [place] [address] 37371- 6633 Sep, Cerebrovascular accident (CVA), unspecified mechanism I63.9 ; Mixed hyperlipidemia E78.2 ; Gastroesophageal reflux disease with esophagitis K21.0 and Anxiety F41.9 [facility] [id number] [place] [address] 27560- 0077 Sep, [facility] [address] 35047- 3761 Aug, Chronic obstructive pulmonary disease, unspecified J44.9 ; Asthma J45.909 ; Nausea R11.0 ; Dysthymic disorder F34.1 ; Cerebrovascular accident (CVA), unspecified mechanism I63.9 and Rheumatoid arthritis M06.9 [facility] [address] 19561- 7580 Aug, Nausea R11.0 ; Encounter for immunization Z23 ; Sleep apnea in adult G47.30 ; Rheumatoid arthritis involving multiple sites, unspecified rheumatoid factor presence M06.9 ; Generalized anxiety disorder F41.1 ; Dysthymic disorder F34.1 and Asthma J45.909 [address] [place] [address] 51409- 7727 Jul, [place] [address] 46030- 1086 May, ADHD (attention deficit hyperactivity disorder), combined type F90.2 ; Generalized anxiety disorder F41.1 and Persistent depressive disorder F34.1 [place] [address] 65008- 6634 May, Cerebrovascular accident (CVA), unspecified mechanism I63.9 [address] [address] 72566- 3351 Apr, Mixed hyperlipidemia E78.2 and Cerebrovascular accident (CVA ), unspecified mechanism I63.9 [place] [address] 81831- 5924 Apr, Generalized anxiety disorder F41.1 [place] [address] 41575- 5425 Apr, Bronchitis J40 and Tobacco use Z72.[address] 08817- 7974 Apr, Mixed hyperlipidemia E78.2 [place] [address] 78307- 1323 Apr, Other terminologist (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 [facility] [address] [place] [address] 87334- 3386 Apr, [facility] [id number] [place] [address] 90679- 0382 Apr, Generalized anxiety disorder F41.1 [facility] [id number] [place] [address] 80614- 8048 Apr, Obstructive sleep apnea G47.33 and Hyperinsulinemia E16.1 [facility] [id number] [place] [address] 41053- 3021 Apr, ADHD (attention deficit hyperactivity disorder), combined type F90.2 ; Generalized anxiety disorder F41.1 and Persistent depressive disorder F34.1 [place] [id number] [place] [address] 99756- 6710 Mar, [place] [id number] [place] [address] 89510- 8303 Mar, Generalized anxiety disorder F41.1 [place] [id number] [place] [address] 84950- 6608 Mar, Tarsal tunnel syndrome of both lower extremities G57.53 [place] [id number] [place] [address] 42073- 6973 February, [facility] [id number] [place] [address] 46766- 4817 February, [place] [id number] [place] [address] 61540- 8115 February, Asthma J45.909 [facility] [id number] [place] [address] 87073- 1416 February, Generalized anxiety disorder F41.1 [facility] [id number] [place] [address] 79730- 1158 February, Hypoxemia R09.02 ; Hyperglycemia R73.9 ; Rheumatoid arthritis M06.9 and Generalized anxiety disorder F41.1 [place] [id number] [place] [address] 39927- 7694 February, [facility] [id number] [place] [address] 75240- 2237 Jan, Chronic obstructive pulmonary disease, unspecified J44.9 [facility] [id number] [place] [address] 39678- 0621 Jan, Chronic pain syndrome G89.4 [place] [address] 70807- 0692 Jan, Hypoxemia R09.02 [address] [address] 57315- 6139 Jan, [place] [id number] [place] [address] 40178- 7742 Jan, Chronic obstructive pulmonary disease, unspecified J44.9 ; Hypoxemia R09.02 ; Other insomnia G47.09 and Left anterior shoulder pain M25.512 [place] [id number] [place] [address] 22019- 3749 Jan, Numbness in feet R20.0 and Neuropathy G62.9 [place] [id number] [place] [address] 90638- 4835 Jan, [place] [id number] [place] [address] 66000- 6390 Dec, Acute pain of left shoulder M25.512 [place] [id number] [place] [address] 50530- 0686 Dec, Acute pain of left shoulder M25.512 [place] [id number] [place] [address] 72730- 6392 Dec, Generalized anxiety disorder F41.1 [facility] [id number] [place] [address] 77984- 7557 Dec, Generalized anxiety disorder F41.1 [place] [id number] [place] [address] 61897- 4813 Nov, ADHD (attention deficit hyperactivity disorder), combined type F90.2 ; Generalized anxiety disorder F41.1 and Persistent depressive disorder F34.1 [facility] [id number] [place] [address] 71753- 8682 Nov, Acute pain of left shoulder M25.512 [facility] [id number] [place] [address] 43821- 1581 Nov, ADHD (attention deficit hyperactivity disorder), combined type F90.2 ; Generalized anxiety disorder F41.1 and Persistent depressive disorder F34.1 [facility] [id number] [place] [address] 41458- 1118 Nov, Chronic pain syndrome G89.4 [facility] [id number] [place] [address] 84531- 2121 Nov, Chronic pain syndrome G89.4 [facility] [id number] [place] [address] 50331- 7652 Nov, Acute pain of left shoulder M25.512 [facility] [id number] [place] [address] 17365- 5822 Nov, Generalized anxiety disorder F41.1 [facility] [address] [place] [address] 71214- 1603 Nov, Acute pain of left shoulder M25.512 [facility] [address] [place] [address] 97946- 1362 Nov, ADHD (attention deficit hyperactivity disorder), combined type F90.2 ; Generalized anxiety disorder F41.1 and Persistent depressive disorder F34.1 [facility] [address] [place] [address] 02247- 7468 Nov, Acute pain of left shoulder M25.512 ; Generalized anxiety disorder F41.1 ; Chronic pain syndrome G89.4 ; Hyperinsulinemia E16.1 ; Pain of left foot M79.672 and Pain in right foot M79.671 [address], [place] [address]- 5372 Oct, ADHD (attention deficit hyperactivity disorder), combined type F90.2 ; Generalized anxiety disorder F41.1 and Dysthymic disorder F34.1 [place] [address], [place] [address]- 2146 Sep, [place] [id number] [address]- 9601 Sep, [place] [id number] [place] [address] 70861- 6539 Sep, Routine gynecological examination V72.31 ; Cervical cancer screening Z12.4 ; Breast cancer screening Z12.39 ; Colon cancer screening Z12.11 ; Hypokalemia E87.6 ; Herpes simplex type 1 infection B00.9 and Abscess of right axilla L02.411 [place] [id number] [address]- 2585 Sep, [place] [id number] [place] [address] 32669- 8448 Sep, ADHD (attention deficit hyperactivity disorder), combined type F90.2 ; Generalized anxiety disorder F41.1 and Dysthymic disorder F34.1 [place] [address] [address]- 3310 Aug, [address] [address] [address]- 8965 Aug, [address] [address] [address]- 8441 Aug, Generalized anxiety disorder F41.1 [address] [place] [id number] [place] [address] 85587- 9348 Aug, ADHD (attention deficit hyperactivity disorder), combined type F90.2 ; Generalized anxiety disorder F41.1 and Dysthymic disorder F34.1 [address] [place] [address] [address]- 1530 Jul, Chronic pain syndrome G89.4 ; Hypertension I10 ; Hypokalemia E87.6 ; Asthma J45.909 and Nausea R11.0 [place] [id number] [place] [address] 14977- 7077 Jul, [address] [address] 58644- 4756 Jul, Asthma J45.909 [address] [place] [address] 57193- 7036 Jul, ADHD (attention deficit hyperactivity disorder), combined type F90.2 ; Generalized anxiety disorder F41.1 and Dysthymic disorder F34.1 [place] [id number] [place] [address] 90129- 5203 Jul, [address] 82444- 4014 Jul, Hypertension I10 ; Arteriosclerotic coronary artery disease I25.10 ; Mixed hyperlipidemia E78.2 ; Other terminologist (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 and Hyperglycemia R73.[address] 23760- 5552 16 Jun, 2016 Hypokalemia E87.6 and Hyperglycemia R73.9 [id number] [place] [address] 88529- 5584 14 Jun, 2016 [address] [place] [address] 48608- 1756 13 Jun, 2016 Abnormal kidney function N28.9 [place] [id number] [place] [address] 86154- 2322 09 Jun, [address] 88006- 5190 Jun, ADHD (attention deficit hyperactivity disorder), combined type F90.2 ; Generalized anxiety disorder F41.1 and Dysthymic disorder F34.1 [id number] [address]- 6560 Jun, Generalized anxiety disorder F41.1 and Dysthymic disorder F34.1 [address] [address] 27992- 0361 Jun, Hypokalemia E87.6 [address] [place] [address] 67460- 7459 May, Hypokalemia E87.6 ; Vertigo R42 and Hyperinsulinemia E16.1 [address] [place] [address] 50730- 5687 May, [address] [address] 74270- 9647 May, Abnormal kidney function N28.9 ; Hyperinsulinemia E16.1 and Nausea R11.0 [address] [place] [address] 27546- 9028 May, Hypokalemia E87.6 ; Nausea R11.0 ; Epigastric pain R10.13 ; Dehydration E86.0 ; Diaphoresis R61 and Right arm pain M79.601 [address] [place] [address] 15518- 8743 May, [place] [address] 58543- 3683 May, Hypokalemia E87.6 [address] [address] 02316- 1928 May, Hypokalemia E87.6 [address] [address] 80178- 6809 Apr, [address] [address] 21036- 9520 Apr, ADHD (attention deficit hyperactivity disorder), combined type F90.2 ; Generalized anxiety disorder F41.1 and Dysthymic disorder F34.1 [address] [id number] [place] [address] 75026- 0396 Apr, Right arm pain M79.601 and Hyperinsulinemia E16.1 [place] [id number] [place] [address] 67268- 1788 Mar, [address] [id number] [place] [address] 21230- 4565 Mar, [place] [id number] [place] [address] 40893- 3635 Mar, Hyperinsulinemia E16.1 ; Hyperlipidemia, unspecified hyperlipidemia type E78.5 ; Central venous catheter in place Z78.9 ; Generalized anxiety disorder F41.1 and Urinary tract infection, site not specified N39.0 [place] [id number] [place] [address] 72240- 8285 Mar, ADHD (attention deficit hyperactivity disorder), combined type F90.2 ; Generalized anxiety disorder F41.1 and Dysthymic disorder F34.1 [address] [id number] [place] [address] 41198- 3527 February, ADHD (attention deficit hyperactivity disorder), combined type F90.2 ; Generalized anxiety disorder F41.1 and Dysthymic disorder F34.1 [address] [place] [address] [place] [address] 81936- 8258 February, [address] [id number] [place] [address] 23340- 8635 February, [address] [id number] [place] [address] 60598- 6814 February, Hypertension I10 and Weight gain R63.5 [address] [id number] [place] [address] 26058- 7612 February, Major depressive disorder, recurrent, moderate F33.1 and Generalized anxiety disorder F41.1 [address] [id number] [place] [address] 08649- 3328 February, ADHD (attention deficit hyperactivity disorder), combined type F90.2 ; Generalized anxiety disorder F41.1 and Dysthymic disorder F34.1 [facility] [address], [place] [address]- 6386 February, [facility] [id number] [address]- 5791 February, Asthma J45.909 ; Weight gain R63.5 ; Hypertension I10 ; Rheumatoid arthritis M06.9 and Chronic pain syndrome G89.4 [facility] [id number] [address]- 3069 Jan, ADHD (attention deficit hyperactivity disorder), combined type F90.2 ; Generalized anxiety disorder F41.1 and Dysthymic disorder F34.1 [facility] [address], [place] [address]- 8723 Dec, ADHD (attention deficit hyperactivity disorder), combined type F90.2 ; Generalized anxiety disorder F41.1 and Dysthymic disorder F34.1 [facility] [address], [place] [address]- 1694 Dec, [facility] [id number] [place] [address] 80289- 8823 Nov, [facility] [address], [place] [address]- 7820 Nov, [facility] [address], [place] [address]- 1743 Nov, [facility] [address], [place] [address]- 0280 Nov, [facility] [id number] 9227 Oct, [facility] [address], [place] [address]- 8495 Oct, [facility] [id number] [place] [address] 81122- 0657 Oct, [facility] [address], [place] [address]- 2456 Sep, [facility] [id number] [place] [address] 39280- 5889 Sep, [facility] [id number] [place] [address] 06854- 8883 Sep, Agoraphobia with panic disorder F40.01 ; Attention-deficit hyperactivity disorder, combined type F90.2 and Dysthymic disorder F34.1 [facility] [id number] [place] [address] 10598- 7615 Aug, [facility] [id number] [place] [address] 40114- 3279 Aug, [facility] [id number] [place] [address] 98742- 0819 Aug, [facility] [id number] [place] [address] 95737- 0584 Aug, Dysthymic disorder F34.1 ; Generalized anxiety disorder F41.1 and ADHD (attention deficit hyperactivity disorder), combined type F90.2 [facility] [address] [place] [address] 39602- 4575 Aug, ADHD (attention deficit hyperactivity disorder), combined type F90.2 ; Generalized anxiety disorder F41.1 and Dysthymic disorder F34.1 [facility] [address] [place] [address] 30749- 2300 Jul, Urinary tract infection, site not specified N39.0 ; Hypotension, unspecified I95.9 and Breast cancer screening Z12.39 [facility] [id number] [place] [address] 77318- 2703 Jul, [facility] [id number] [place] [address] 60390- 9206 Jul, [facility] [id number] [place] [address] 41839- 5159 Jul, Urinary tract infection, site not specified N39.0 ; Nausea R11.0 ; Gastroenteritis K52.9 ; Renal failure N19 and Other hypotension I95.89 [facility] [address] [place] [address] 42142- 3842 Jul, [facility] [id number] [place] [address] 05293- 1538 Jul, [facility] [id number] [place] [address] 69278- 7760 Jul, [facility] [id number] [place] [address] 61139- 4901 Jun, [place] [id number] [place] [address] 34489- 0017 Jun, Major depression in partial remission 296.25 ; Generalized anxiety disorder 300.02 and ADHD, predominantly inattentive type 314.01 [place] [id number] [place] [address] 73879- 1898 May, [place] [id number] [place] [address] 05415- 6796 Apr, Major depressive disorder, recurrent episode, severe, without mention of psychotic behavior 296.33 ; Agoraphobia with panic disorder 300.21 and Generalized anxiety disorder 300.02 [place] [id number] [place] [address] 55554- 6113 Apr, ADHD (attention deficit hyperactivity disorder), combined type 314.01 ; Generalized anxiety disorder 300.02 and Dysthymic disorder 300.4 [place] [id number] [place] [address] 81828- 3703 Apr, CAD (coronary artery disease) 414.00 ; HTN (hypertension) 401.9 and Tobacco use 305.1 [address] [id number] [place] [address] 08590- 7451 Apr, [facility] [address] 42963- 5498 Mar, ADHD (attention deficit hyperactivity disorder), combined type 314.01 ; Generalized anxiety disorder 300.02 ; Dysthymic disorder 300.4 ; No condition on [place] V71.09 ; Rheumatoid arthritis 714.0 ; Incontinence 788.30 ; Irritable bowel syndrome 564.1 ; Osteoporosis 733.00 and Chronic pain 338.29 [facility] [id number] [place] [address] 42811- 7309 Mar, Agoraphobia with panic disorder 300.21 and Major depressive disorder, recurrent episode, moderate 296.32 [facility] [address] 49355- 9818 Mar, [facility] [id number] [place] [address] 11618- 6905 February, [facility] [id number] [place] [address] 60227- 7616 February, Agoraphobia with panic disorder 300.21 and Major depressive disorder, recurrent episode, moderate 296.32 [facility] [id number] [place] [address] 35007- 9893 February, [facility] [id number] [place] [address] 25246- 5234 Jan, [facility] [id number] [place] [address] 74579- 6267 Jan, [facility] [id number] [place] [address] 25113- 1639 Dec, [facility] [id number] [place] [address] 54636- 7906 Dec, [facility] [id number] [place] [address] 47762- 2000 Dec, [facility] [id number] [place] [address] 52828- 1831 Dec, [facility] [address] 64047- 0196 Dec, [facility] [place] [facility] [address] [id number] [place] [address]- 9915 Dec, [facility] [place] [facility] [address] [id number] [place] [address]- 0076 Nov, 2014 [facility] [place] [facility] [address] [id number] [place] [address]- 7256 Nov, 2014 [facility] [place] [facility] [address] [id number] [place] [address]- 4619 Nov, 2014 [facility] [place] [facility] [address] [id number] [place] [address]- 9287 Nov, 2014 [facility] [place] [facility] [address] [id number] [place] [address]- 4926 Nov, [facility] [place] [facility] [address] [facility] [id number] [place] [address]- 3342 Nov, 2014 [facility] [place] [facility] [address] [id number] [place] [address] Nov, [facility] [place] [facility] [address] [id number] [place] [address] Nov, [facility] [place] [facility] [address] [facility] [id number] [place] [address] Oct, [facility] [place] [facility] [address] [facility] [id number] [place] [address] Oct, [facility] [place] [facility] [address] [id number], [place] [address] Oct, [facility] [place] [facility] [address] [id number] [place] [address] Oct, [facility] [place] [facility] [address] [facility] [id number] [place] [address] Oct, [facility] [place] [facility] [address] [facility] [id number], [place] [address] Oct, [facility] [place] [facility] [address] [id number] [place] [address] Sep, [facility] [place] [facility] [address] [id number] [place] [address] Sep, [facility] [place] [facility] [address] [id number] [place] [address] Sep, [facility] [place] [facility] [address] [id number] [place] [address] Sep, [facility] [place] [facility] [address] [id number] [place] [address] Sep, [facility] [place] [facility] [address] [id number] [place] [address] Sep, [facility] [place] [facility] [address] [id number] [place] [address] Sep, [facility] [place] [facility] [address] [id number] [place] [address] Aug, [facility] [place] [facility] [address] [id number] [place] [address] Aug, [facility] [place] [facility] [address] [id number] [place] [address] Aug, [facility] [place] [facility] [address] [id number] [place] [address] Aug, [facility] [place] [facility] [address] [id number] [place] [address] Aug, [facility] [place] [facility] [address] [id number] [place] [address] 18 Aug, 2014 [facility] [place] [facility] [address] [id number] [place] [address] Jul, [facility] [place] [facility] [address] [id number] [place] [address] 17 Jul, 2014 [facility] [place] [facility] [address] [id number] [place] [address] Jul, [facility] [place] [facility] [address] [id number] [place] [address] Jul, [facility] [place] [facility] [address] [id number] [place] [address] Jul, [facility] [place] [facility] [address] [id number] [place] [address] 49[address] Jul, [facility] [place] [facility] [address] [id number] [place] [address] 5073 Jun, [facility] [place] [facility] [address] [id number] [place] [address] Jun, [facility] [place] [facility] [address] [id number] [place] [address] 9837 May, [facility] [place] [facility] [address] [id number] [place] [address]856 May, [facility] [place] [facility] [address] [id number] [place] [address] 9406 Apr, [facility] [place] [facility] [address] [id number] [place] [address] 1883 Apr, [facility] [place] [facility] [address] [id number] [place] [address] 7786 Apr, [facility] [place] [facility] [address] [id number] [place] [address] 6928 Apr, [facility] [place] [facility] [address] [id number], [place] [address] Mar, [facility] [place] [facility] [address] [id number] [place] [address] Mar, [facility] [place] [facility] [address] [id number] [place] [address] 9447 Mar, [facility] [place] [facility] [address] [id number] [place] [address] 6183 Mar, [facility] [place] [facility] [address] [id number] [place] [address] 6859 February, [facility] [address] [id number] [place] [address] 6626 February, [facility] [address] [id number] [place] [address] 3833 February, [facility] [address] [id number] [place] [address] 1544 February, [facility] [address] [id number] [place] [address] 1563 February, [facility] [address] [id number] [place] [address] 49[address] February, [facility] [address] [id number] [place] [address] Jan, [facility] [address] [id number] [place] [address] Jan, [facility] [address] [id number] [place] [address] 1530 Dec, [facility] [address] [id number] [place] [address] Dec, [facility] [address] [id number] [place] [address] 4318 Nov, [facility] [place] [facility] [address] [id number] [place] [address] 8921 Nov, [facility] [address] [id number] [place] [address] Oct, [facility] [place] [facility] [address] [id number] [place] [address] Oct, [facility] [place] [facility] [address] [id number] [place] [address] 6721 Oct, [facility] [place] [facility] [address] [id number] [place] [address] Oct, [facility] [address] [id number] [place] [address] 0840 Sep, [facility] [place] [facility] [address] [id number] [place] [address] 2507 Sep, [facility] [place] [facility] [address] [id number] [place] [address] 3055 Sep, [facility] [place] [facility] [address] [id number] [place] [address] 3752 Sep, [facility] [place] [facility] [address] [id number] [place] [address] 5594 Sep, [facility] [place] [facility] [address] [id number] [place] [address] 8212 Sep, [facility] [place] [facility] [address] [id number] [place] [address] 3170 Sep, [facility] [place] [facility] [address] [id number] [place] [address] 7851 Sep, [facility] [place] [facility] [address] [id number] [place] [address] 8898 Aug, [facility] [place] [facility] [address] [id number] [place] [address] 4435 Aug, [facility] [place] [facility] [address] [id number], [place] [address] Aug, [facility] [place] [facility] [address] [id number], [place] [address] 7936 Aug, [facility] [place] [facility] [address] [id number] [place] [address] 2422 Aug, [facility] [place] [facility] [address] [id number] [place] [address] 3362 Aug, [facility] [place] [facility] [address] [id number], [place] [address] Aug, [facility] [place] [facility] [address] [id number] [place] [address] 2546 Aug, [facility] [address] [id number] [place] [address]- 4284 Aug, [facility] [address] [id number] [place] [address] 3826 Jul, [facility] [address] [id number] [place] [address] 2546 Jun, [facility] [address] [id number] [place] [address] 2547 May, [facility] [address] [id number] [place] [address]- 7123 May, [facility] [address] [id number] [place] [address]- 1756 May, [facility] [address] [id number] [place] [address] 3945 Apr, [facility] [address] [id number] [place] [address] 6326 Mar, [facility] [address] [id number] [place] [address] 8828 February, [facility] [address] [id number] [place] [address]- 5892 Oct, [facility] [address] [id number] [place] [address]- 7339 Oct, [facility] [place] [facility] [address] [id number], [place] [address]486 Oct, [facility] [place] [facility] [address] [id number] [place] [address] 1984 Oct, [facility] [place] [facility] [address] [id number] [place] [address]- 0504 Oct, [facility] [place] [facility] [address] [id number], [place] [address]- 0810 Oct, [facility] [place] [facility] [address] [id number] [place] [address]- 2611 Sep, [facility] [place] [facility] [address] [id number] [place] [address] Sep, [facility] [place] [facility] [address] [id number] [place] [address]- 7769 Aug, [facility] [place] [facility] [address] [id number] [place] [address]- 9628 Aug, [facility] [place] [facility] [address] [id number] [place] [address]- 2473 Jul, [facility] [place] [facility] [address] [id number] [place] [address]- 7776 Jul, [facility] [place] [facility] [address] [id number] [place] [address]- 9518 Jul, [facility] [place] [facility] [address] [id number] [place] [address]- 5065 Jul, [facility] [place] [facility] [address] [id number] [place] [address]- 8414 Jul, [facility] [place] [facility] [address] [id number] [place] [address]- 3435 Jul, [facility] [place] [facility] [address] [id number] [place] [address]- 3887 Jul, [facility] [place] [facility] [address] [id number] [place] [address]- 0358 Jul, [facility] [place] [facility] [address] [id number] [place] [address]- 7448 Jun, [facility] [place] [facility] [address] [id number] [place] [address]- 9716 Jun, [facility] [place] [facility] [address] [id number] [place] [address]- 5151 May, [facility] [place] [facility] [address] [id number] [place] [address]- 3555 Apr, [facility] [place] [facility] [address] [id number] [place] [address]- 2675 Mar, [facility] [place] [facility] [address] [id number] [place] [address]- 6664 Mar, [facility] [place] [facility] [address] [id number] [place] [address]- 7775 Mar, [facility] [place] [facility] [address] [id number] [place] [address]- 7194 Mar, [facility] [place] [facility] [address] [id number] [place] [address]- 4098 Jan, [facility] [place] [facility] [address] [id number] [place] [address]- 9401 Nov, [facility] [place] [facility] [address] [id number] [place] [address]- 5021 Nov, [facility] [place] [facility] [address] [id number] [place] [address]- 5004 Nov, [facility] [place] [facility] [address] [id number] [place] [address]- 0835 Oct, [facility] [place] [facility] [address] [id number] [place] [address]- 6043 Sep, [facility] [place] [facility] [address] [id number] [place] [address]- 2894 Sep, [facility] [place] [facility] [address] [id number] [place] [address]- 8640 Aug, [facility] [place] [facility] [address] [id number] [place] [address]- 4537 Aug, [facility] [place] [facility] [address] [id number] [place] [address]- 1325 Aug, [facility] [place] [facility] [address] [id number] [place] [address]- 1389 Aug, [facility] [place] [facility] [address] [id number], [place] [address] Jul, [facility] [address] [id number], [place] [address]846 May, [facility] [id number], [place] [address]- 4807 Jan, [facility] [id number], [place] [address]- 5655 Nov, [facility] [id number], [place] [address]- 6041 Apr, [facility] [id number] [place] [address] Dec, [facility] [id number], [place] [address]- 2469 Nov, IMMUNIZATIONS No Known Immunizations SOCIAL HISTORY Never Assessed REASON FOR VISIT PT Referral PLAN OF CARE VITAL SIGNS MEDICATIONS Unknown Medications RESULTS No Results PROCEDURES No Known procedures INSTRUCTIONS MEDICATIONS ADMINISTERED No Known Medications MEDICAL (GENERAL) HISTORY Type Description Date Medical History Cardiovascular [id number]-[id number], 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 Mendoza Medical History Stress test 03/07/13-Dr. Kelly Dietrich normal Medical History Hypertension Medical History Asthma Medical History Gastrointestinal Disorder--IBS, GERD, Hx of fatty liver Medical History Hernia 1979 Medical History Cervical dysplasia 02/16-Pap LGSIL/[place]-mild dysplasia Medical History Hyperlipidemia Medical History Rheumatoid [...]
--- OUTSIDE RECORDS SUMMARY | 2018-06-12 16:20 | XMS REPORT ---
Author Author LORI SNOWDEN Organization [facility] [place] Address [address] [place] [address] Care Team Providers Care Wound Care Physician Name Role Phone LORI SNOWDEN Unavailable PROBLEMS Type Condition ICD9-CM Code ZKM18-CO Code Onset Dates Condition Status SNOMED Code Problem ADHD (attention deficit hyperactivity disorder), combined type F90.2 Active 56014724 Problem Other prison (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 Active 233464960 Problem Generalized anxiety disorder F41.1 Active 17483245 Problem Cerebrovascular accident (CVA), unspecified mechanism I63.9 Active 068695753 Problem Asthma J45.909 Active 262798265 Problem Dysthymic disorder F34.1 Active 04027170 Problem Rheumatoid arthritis involving multiple sites, unspecified rheumatoid factor presence M06.9 Active 615695317 Problem Sleep apnea in adult G47.30 Active 69403446 Problem Seasonal allergies J30.2 Active 723561986 Problem Mild episode of recurrent major depressive disorder F33.0 Active 120307267 Problem Rheumatoid arthritis M06.9 Active 59731218 Problem Chronic pain syndrome G89.4 Active 618499670 Problem Hypertension I10 Active 73332961 Problem Anxiety F41.9 Active 48963614 Problem Gastroesophageal reflux disease with esophagitis K21.0 Active 515139804 Problem Panic attacks F41.0 Active 951055623 Problem Irritable bowel syndrome with diarrhea K58.0 Active 064373754 Problem Mixed hyperlipidemia E78.2 Active 812997553 Problem Hyperinsulinemia E16.1 Active 12940067 Problem Weight gain R63.5 Active 2595038 Problem Arteriosclerotic coronary artery disease I25.10 Active 96832203 Problem Chronic obstructive pulmonary disease, unspecified J44.9 Active [id number] Problem Obstructive sleep apnea G47.33 Active 62034462 Problem Neuropathy G62.9 Active 578114870 Problem Other insomnia G47.09 Active 448278105 ALLERGIES No Information ENCOUNTERS Encounter Location Date Diagnosis [facility] [place] [id number] [place] [address] 67572- 9752 Mar, [facility] [place] [id number] [place] [address] 73825- 7235 February, Generalized anxiety disorder F41.1 [facility] [id number] [place] [address] 10260 -0331 February, Cough R05 and Seasonal allergies J30.2 [facility] [place] [id number] [place] [address] 24790- 3358 February, Generalized anxiety disorder F41.1 and Mild episode of recurrent major depressive disorder F33.0 [facility] [place] [id number] [place] [address] 41698- 3840 February, 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 ; Anxiety F41.9 ; Panic attacks F41.0 and Irritable bowel syndrome with diarrhea K58.0 [facility] [place] [id number] [place] [address] 61569- 2436 February, [facility] [place] [id number] [place] [address] 77383- 6576 Jan, Mixed hyperlipidemia E78.2 [facility] [place] [id number] [place] [address] 24136- 1793 Jan, [facility] [place] [id number] [place] [address] 87073- 6103 Jan, [facility] [place] [id number] [place] [address] 79797- 9771 Jan, [facility] [place] [id number] [place] [address] 40298- 4202 Jan, [facility] [place] [id number] [place] [address] 65572- 5947 Dec, [facility] [place] [id number] [place] [address] 14739- 0943 Dec, [facility] [place] [id number] [place] [address] 73668- 6740 Dec, [facility] [place] [address] 05939- 3084 Nov, Dysthymic disorder F34.1 [facility] [place] [address] 67397- 8612 Oct, [facility] [place] [address] 93274- 1490 Oct, [facility] [place] [address] 05610- 7541 Oct, [place] [address] 95043- 1303 Oct, Diarrhea, unspecified type R19.7 and Dysuria R30.0 [place] [address] 09121- 0190 Oct, [facility] [place] [id number] [place] [address] 45897- 4908 Sep, [place] [address] 34284- 9702 Sep, [place] [address] 51852- 1836 Sep, Anxiety F41.9 [facility] [id number] [place] [address] 34879- 9832 Sep, Cerebrovascular accident (CVA), unspecified mechanism I63.9 ; Mixed hyperlipidemia E78.2 ; Gastroesophageal reflux disease with esophagitis K21.0 and Anxiety F41.9 [facility] [id number] [place] [address] 69263- 5387 Sep, [facility] [place] [id number] [place] [address] 52147- 0085 Aug, Chronic obstructive pulmonary disease, unspecified J44.9 ; Asthma J45.909 ; Nausea R11.0 ; Dysthymic disorder F34.1 ; Cerebrovascular accident (CVA), unspecified mechanism I63.9 and Rheumatoid arthritis M06.9 [facility] [place] [address] 57082- 5074 Aug, Nausea R11.0 ; Encounter for immunization Z23 ; Sleep apnea in adult G47.30 ; Rheumatoid arthritis involving multiple sites, unspecified rheumatoid factor presence M06.9 ; Generalized anxiety disorder F41.1 ; Dysthymic disorder F34.1 and Asthma J45.909 [place] [address] 20435- 0152 Jul, [place] [address] 08757- 4718 May, ADHD (attention deficit hyperactivity disorder), combined type F90.2 ; Generalized anxiety disorder F41.1 and Persistent depressive disorder F34.1 [place] [address] 93967- 4102 May, Cerebrovascular accident (CVA), unspecified mechanism I63.9 [place] [address] 38318- 7032 Apr, Mixed hyperlipidemia E78.2 and Cerebrovascular accident (CVA ), unspecified mechanism I63.9 [place] [address] 16434- 7211 Apr, Generalized anxiety disorder F41.1 [place] [address] 35046- 2277 Apr, Bronchitis J40 and Tobacco use Z72.0 [place] [address] 86101- 2027 Apr, Mixed hyperlipidemia E78.2 [place] [address] 77188- 8298 Apr, Other prison (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 [place] [address] [place] [address]- 3829 Apr, [facility] [place] [id number] [place] [address] 99579- 7966 Apr, Generalized anxiety disorder F41.1 [facility] [place] [id number] [place] [address] 16998- 2471 Apr, Obstructive sleep apnea G47.33 and Hyperinsulinemia E16.1 [place] [address] 34635- 6732 Apr, ADHD (attention deficit hyperactivity disorder), combined type F90.2 ; Generalized anxiety disorder F41.1 and Persistent depressive disorder F34.1 [place] [address] 49673- 0508 Mar, [place] [address] 29775- 9391 Mar, Generalized anxiety disorder F41.1 [place] [address] 64856- 3879 Mar, Tarsal tunnel syndrome of both lower extremities G57.53 [place] [address] 24301- 9522 February, [facility] [id number] [place] [address] 25769- 3666 February, [facility] [id number] [place] [address] 54095- 0679 February, Asthma J45.909 [facility] [place] [id number] [place] [address] 30430- 5734 February, Generalized anxiety disorder F41.1 [facility] [id number] [place] [address] 53997- 2502 February, Hypoxemia R09.02 ; Hyperglycemia R73.9 ; Rheumatoid arthritis M06.9 and Generalized anxiety disorder F41.1 [facility] [place] [address] 45681- 7074 February, [facility] [place] [id number] [place] [address] 16814- 0746 Jan, Chronic obstructive pulmonary disease, unspecified J44.9 [facility] [place] [id number] [place] [address] 91465- 0087 Jan, Chronic pain syndrome G89.4 [place] [address] 85156- 9816 Jan, Hypoxemia R09.02 [place] [address] 90799- 0954 Jan, [place] [address] 23296- 5691 Jan, Chronic obstructive pulmonary disease, unspecified J44.9 ; Hypoxemia R09.02 ; Other insomnia G47.09 and Left anterior shoulder pain M25.512 [place] [address] 31570- 9713 Jan, Numbness in feet R20.0 and Neuropathy G62.9 [place] [address] 76692- 0839 Jan, [facility] [id number] [place] [address] 09325- 8593 Dec, Acute pain of left shoulder M25.512 [facility] [id number] [place] [address] 96683- 0205 Dec, Acute pain of left shoulder M25.512 [facility] [id number] [place] [address] 74086- 9380 Dec, Generalized anxiety disorder F41.1 [place] [address] 55716- 4116 Dec, Generalized anxiety disorder F41.1 [place] [id number] [place] [address] 49586- 6333 27 Feb, 2017 ADHD (attention deficit hyperactivity disorder), combined type F90.2 ; Generalized anxiety disorder F41.1 and Persistent depressive disorder F34.1 [facility] [place] [id number] [place] [address] 58740- 8195 Nov, Acute pain of left shoulder M25.512 [facility] [place] [id number] [place] [address] 61404- 2012 20 Nov, 2016 ADHD (attention deficit hyperactivity disorder), combined type F90.2 ; Generalized anxiety disorder F41.1 and Persistent depressive disorder F34.1 [facility] [place] [id number] [place] [address] 18957- 1717 17 Nov, 2016 Chronic pain syndrome G89.4 [facility] [place] [address] 03214- 0609 13 Nov, 2016 Chronic pain syndrome G89.4 [facility] [place] [address] 42256- 0503 08 Nov, 2016 Acute pain of left shoulder M25.512 [facility] [place] [id number] [place] [address] 41599- 4026 Nov, Generalized anxiety disorder F41.1 [facility] [place] [id number] [place] [address] 40576- 4124 Nov, Acute pain of left shoulder M25.512 [facility] [place] [id number] [place] [address] 85725- 8594 Nov, ADHD (attention deficit hyperactivity disorder), combined type F90.2 ; Generalized anxiety disorder F41.1 and Persistent depressive disorder F34.1 [facility] [place] [id number] [place] [address] 84767- 7121 Nov, Acute pain of left shoulder M25.512 ; Generalized anxiety disorder F41.1 ; Chronic pain syndrome G89.4 ; Hyperinsulinemia E16.1 ; Pain of left foot M79.672 and Pain in right foot M79.671 [facility] [place] [address] 49058- 5954 Oct, ADHD (attention deficit hyperactivity disorder), combined type F90.2 ; Generalized anxiety disorder F41.1 and Dysthymic disorder F34.1 [place] [id number] [place] [address] 59820- 3735 Sep, [place] [id number] [place] [address] 97760- 0638 Sep, [place] [address] 56223- 9447 Sep, Routine gynecological examination V72.31 ; Cervical cancer screening Z12.4 ; Breast cancer screening Z12.39 ; Colon cancer screening Z12.11 ; Hypokalemia E87.6 ; Herpes simplex type 1 infection B00.9 and Abscess of right axilla L02.411 [place] [id number] [place] [address] 63805- 1186 Sep, [place] [id number] [place] [address] 13388- 0736 Sep, ADHD (attention deficit hyperactivity disorder), combined type F90.2 ; Generalized anxiety disorder F41.1 and Dysthymic disorder F34.1 [place] [id number] [place] [address] 73997- 7010 Aug, [place] [id number] [place] [address] 51007- 8642 Aug, [facility] [id number] [place] [address] 04779- 4520 Aug, Generalized anxiety disorder F41.1 [facility] [id number] [place] [address] 91817- 7527 Aug, ADHD (attention deficit hyperactivity disorder), combined type F90.2 ; Generalized anxiety disorder F41.1 and Dysthymic disorder F34.1 [place] [id number] [place] [address] 09441- 6602 Jul, Chronic pain syndrome G89.4 ; Hypertension I10 ; Hypokalemia E87.6 ; Asthma J45.909 and Nausea R11.0 [place] [address] 62277- 5064 Jul, [place] [address] 63309- 3117 Jul, Asthma J45.909 [place] [address] 48345- 8536 Jul, ADHD (attention deficit hyperactivity disorder), combined type F90.2 ; Generalized anxiety disorder F41.1 and Dysthymic disorder F34.1 [place] [address] 11338- 4792 Jul, [place] [address] 16864- 0949 Jul, Hypertension I10 ; Arteriosclerotic coronary artery disease I25.10 ; Mixed hyperlipidemia E78.2 ; Other prison (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 and Hyperglycemia R73.9 [place] [address] 93878- 9084 16 Jun, 2016 Hypokalemia E87.6 and Hyperglycemia R73.9 [place] [address] 65917- 6800 14 Jun, 2016 [place] [address] 24610- 3329 13 Jun, 2016 Abnormal kidney function N28.9 [place] [id number] [place] [address] 60485- 9015 Jun, [place] [address] 97616- 8900 Jun, ADHD (attention deficit hyperactivity disorder), combined type F90.2 ; Generalized anxiety disorder F41.1 and Dysthymic disorder F34.1 [place] [address] 66347- 3207 Jun, Generalized anxiety disorder F41.1 and Dysthymic disorder F34.1 [place] [address] 204977- 6674 Jun, Hypokalemia E87.6 [place] [address] 15538- 9762 May, Hypokalemia E87.6 ; Vertigo R42 and Hyperinsulinemia E16.1 [place] [address] 44242- 0295 May, [place] [address] 80491- 8403 May, Abnormal kidney function N28.9 ; Hyperinsulinemia E16.1 and Nausea R11.0 [place] [address] 53459- 2397 May, Hypokalemia E87.6 ; Nausea R11.0 ; Epigastric pain R10.13 ; Dehydration E86.0 ; Diaphoresis R61 and Right arm pain M79.601 [place] [address] 76003- 4391 May, [place] [address] 70694- 1173 May, Hypokalemia E87.6 [place] [address] 59091- 6414 May, Hypokalemia E87.6 [place] [address] 25195- 1309 Apr, [place] [address] 96601- 2702 Apr, ADHD (attention deficit hyperactivity disorder), combined type F90.2 ; Generalized anxiety disorder F41.1 and Dysthymic disorder F34.1 [place] [address] 90656- 8296 Apr, Right arm pain M79.601 and Hyperinsulinemia E16.1 [place] [id number] [place] [address] 74713- 4360 Mar, [place] [id number] [place] [address] 82953- 6666 Mar, [place] [address] 51069- 7429 Mar, Hyperinsulinemia E16.1 ; Hyperlipidemia, unspecified hyperlipidemia type E78.5 ; Central venous catheter in place Z78.9 ; Generalized anxiety disorder F41.1 and Urinary tract infection, site not specified N39.0 [place] [address] 38694- 6156 Mar, ADHD (attention deficit hyperactivity disorder), combined type F90.2 ; Generalized anxiety disorder F41.1 and Dysthymic disorder F34.1 [place] [address] 17884- 6459 February, ADHD (attention deficit hyperactivity disorder), combined type F90.2 ; Generalized anxiety disorder F41.1 and Dysthymic disorder F34.1 [place] [id number] [place] [address] 52695- 4641 February, [place] [id number] [place] [address] 92427- 0591 February, [place] [address] 40021- 7211 February, Hypertension I10 and Weight gain R63.5 [place] [id number] [place] [address] 98018- 0658 February, Major depressive disorder, recurrent, moderate F33.1 and Generalized anxiety disorder F41.1 [place] [id number] [place] [address] 84637- 0633 February, ADHD (attention deficit hyperactivity disorder), combined type F90.2 ; Generalized anxiety disorder F41.1 and Dysthymic disorder F34.1 [facility] [address] [place] [address]- 7180 February, [facility] [place] [address]- 4176 February, Asthma J45.909 ; Weight gain R63.5 ; Hypertension I10 ; Rheumatoid arthritis M06.9 and Chronic pain syndrome G89.4 [facility] [place] [address] [place] [address]- 5158 Jan, ADHD (attention deficit hyperactivity disorder), combined type F90.2 ; Generalized anxiety disorder F41.1 and Dysthymic disorder F34.1 [facility] [address] [address]- 2865 Dec, ADHD (attention deficit hyperactivity disorder), combined type F90.2 ; Generalized anxiety disorder F41.1 and Dysthymic disorder F34.1 [facility] [address] [place] [address]- 8734 Dec, [facility] [place] [address] [place] [address]- 4230 Nov, [facility] [place] [address] [place] [address]- 3228 Nov, [facility] [place] [address] [place] [address]- 3889 Nov, [facility] [place] [address] [place] [address]- 0751 Nov, [facility] [place] [address] [place] [address]- 6850 Oct, [facility] [place] [address] [address]- 1147 Oct, [facility] [place] [address] [place] [address]- 6646 Oct, [facility] [place] [address] [place] [address]- 1060 Sep, [facility] [place] [address] [place] [address]- 3749 Sep, [facility] [place] [address] [place] [address]- 7933 Sep, Agoraphobia with panic disorder F40.01 ; Attention-deficit hyperactivity disorder, combined type F90.2 and Dysthymic disorder F34.1 [facility] [place] [address] [place] [address]- 3829 Aug, [facility] [place] [id number] [place] [address] 30495- 6130 Aug, [facility] [place] [id number] [place] [address] 41736- 1708 Aug, [facility] [address] [place] [address]- 8325 Aug, Dysthymic disorder F34.1 ; Generalized anxiety disorder F41.1 and ADHD (attention deficit hyperactivity disorder), combined type F90.2 [facility] [address] [place] [address]- 8582 Aug, ADHD (attention deficit hyperactivity disorder), combined type F90.2 ; Generalized anxiety disorder F41.1 and Dysthymic disorder F34.1 [facility] [address] [place] [address]- 0777 Jul, Urinary tract infection, site not specified N39.0 ; Hypotension, unspecified I95.9 and Breast cancer screening Z12.39 [facility] [address] [place] [address]- 8126 Jul, [facility] [place] [address] [place] [address]- 8495 Jul, [facility] [address] [place] [address]- 6831 Jul, Urinary tract infection, site not specified N39.0 ; Nausea R11.0 ; Gastroenteritis K52.9 ; Renal failure N19 and Other hypotension I95.89 [place] [id number] [place] [address] 07920- 8882 Jul, [facility] [id number] [place] [address] 99134- 3575 Jul, [facility] [place] [id number] [place] [address] 98459- 7804 Jul, [facility] [id number] [place] [address] 23766- 1523 Jun, [place] [id number] [place] [address] 23978- 0007 Jun, Major depression in partial remission 296.25 ; Generalized anxiety disorder 300.02 and ADHD, predominantly inattentive type 314.01 [place] [id number] [place] [address] 43699- 2321 May, [facility] [id number] [place] [address] 27792- 7893 Apr, Major depressive disorder, recurrent episode, severe, without mention of psychotic behavior 296.33 ; Agoraphobia with panic disorder 300.21 and Generalized anxiety disorder 300.02 [place] [id number] [place] [address] 48145- 0469 Apr, ADHD (attention deficit hyperactivity disorder), combined type 314.01 ; Generalized anxiety disorder 300.02 and Dysthymic disorder 300.[id number] [place] [address] 31305- 2303 Apr, CAD (coronary artery disease) 414.00 ; HTN (hypertension) 401.9 and Tobacco use 305.1 [id number] [place] [address] 38382- 2661 Apr, [place] [id number] [place] [address] 71507- 2083 Mar, ADHD (attention deficit hyperactivity disorder), combined type 314.01 ; Generalized anxiety disorder 300.02 ; Dysthymic disorder 300.4 ; No condition on [place] V71.09 ; Rheumatoid arthritis 714.0 ; Incontinence 788.30 ; Irritable bowel syndrome 564.1 ; Osteoporosis 733.00 and Chronic pain 338.29 [facility] [place] [id number] [place] [address] 76545- 7963 16 Mar, 2015 Agoraphobia with panic disorder 300.21 and Major depressive disorder, recurrent episode, moderate 296.32 [facility] [place] [id number] [place] [address] 85965- 7667 Mar, [facility] [place] [id number] [place] [address] 39641- 8145 February, [facility] [place] [id number] [place] [address] 32381- 5528 February, Agoraphobia with panic disorder 300.21 and Major depressive disorder, recurrent episode, moderate 296.32 [facility] [place] [id number] [place] [address] 42250- 6657 February, [facility] [place] [id number] [place] [address] 50835- 2078 Jan, [facility] [place] [id number] [place] [address] 75996- 6566 Jan, [facility] [place] [id number] [place] [address] 70335- 7824 Dec, [facility] [place] [id number] [place] [address] 08680- 0909 Dec, [facility] [place] [id number] [place] [address] 64339- 9729 Dec, [facility] [place] [id number] [place] [address] 70859- 1035 Dec, [facility] [place] [id number] [place] [address] 60788- 4861 Dec, [facility] [place] [facility] [address] [id number] [place] [address]- 0008 Dec, [facility] [place] [facility] [address] [id number] [place] [address]- 2487 Nov, 2014 [facility] [place] [facility] [address] [id number] [place] [address]- 7846 Nov, 2014 [facility] [place] [facility] [address] [id number] [place] [address]- 5824 Nov, 2014 [facility] [place] [facility] [address] [id number] [place] [address]- 5739 Nov, 2014 [facility] [place] [facility] [address] [id number] [place] [address]- 5856 Nov, 2014 [facility] [place] [facility] [address] [id number] [place] [address]- 5252 Nov, [facility] [place] [facility] [address] [id number] [place] [address]- 0254 Nov, 2014 [facility] [place] [facility] [address] [id number] [place] [address]- 6265 Nov, [facility] [place] [facility] [address] [facility] [id number] [place] [address]- 0617 Oct, [facility] [place] [facility] [address] [id number] [place] [address]- 4112 Oct, [facility] [place] [facility] [address] [id number], [place] [address]- 6493 Oct, [facility] [place] [facility] [address] [id number] [place] [address]- 4714 Oct, [facility] [place] [facility] [address] [id number] [place] [address]- 0331 Oct, [facility] [place] [facility] [address] [facility] [id number] [place] [address]- 3687 Oct, [facility] [place] [facility] [address] [id number] [place] 9311 29 Sep, 2014 [facility] [place] [facility] [address] [id number] [place] [address]- 3740 29 Sep, 2014 [facility] [place] [facility] [address] [id number] [place] 9417 Sep, [facility] [place] [facility] [address] [facility] [id number] [place] 6340 Sep, [facility] [place] [facility] [address] [id number] [place] [address]- 8281 Sep, [facility] [place] [facility] [address] [id number] [place] [address]- 4616 05 Sep, 2014 [facility] [place] [facility] [address] [id number] [place] [address]- 0970 Sep, [facility] [place] [facility] [address] [id number] [place] [address]- 2273 24 Aug, 2014 [facility] [place] [facility] [address] [id number] [place] [address]- 2502 24 Aug, 2014 [facility] [place] [facility] [address] [id number] [place] [address]- 1342 Aug, [facility] [place] [facility] [address] [facility] [id number] [place] [address]- 8852 Aug, [facility] [place] [facility] [address] [id number] [place] [address]- 4027 18 Aug, 2014 [facility] [place] [facility] [address] [facility] [id number], [place] [address]- 5641 18 Aug, 2014 [facility] [place] [facility] [address] [id number] [place] [address]- 5084 17 Jul, 2014 [facility] [place] [facility] [address] [facility] [id number] [place] [address]- 7455 17 Jul, 2014 [facility] [place] [facility] [address] [facility] [id number], [place] [address]- 5646 13 Jul, 2014 [facility] [place] [facility] [address] [id number] [place] [address]- 7088 Jul, [facility] [place] [facility] [address] [id number] [place] [address]- 4842 Jul, [facility] [place] [facility] [address] [id number] [place] [address]- 6621 Jul, [facility] [place] [facility] [address] [id number] [place] [address]- 1029 Jun, [facility] [place] [facility] [address] [id number] [place] [address]- 6956 Jun, [facility] [place] [facility] [address] [id number] [place] [address]- 5992 May, [facility] [place] [facility] [address] [id number] [place] [address]- 6740 May, [facility] [place] [facility] [address] [id number] [place] [address]- 8748 Apr, [facility] [place] [facility] [address] [id number] [place] [address]- 9403 Apr, [facility] [place] [facility] [address] [id number] [place] [address]- 6291 Apr, [facility] [place] [facility] [address] [id number] [place] [address]- 8587 Apr, [facility] [place] [facility] [address] [id number] [place] [address]- 0908 Mar, [facility] [place] [facility] [address] [id number] [place] [address]- 0145 Mar, [facility] [place] [facility] [address] [id number] [place] [address]- 7004 Mar, [facility] [place] [facility] [address] [id number] [place] [address]- 6942 Mar, [facility] [place] [facility] [address] [id number] [place] [address]- 1125 February, [facility] [place] [facility] [address] [id number] [place] [address]- 5342 February, [facility] [place] [facility] [address] [id number] [place] [address]- 0440 February, [facility] [place] [facility] [address] [id number] [place] [address]- 7050 February, [facility] [place] [facility] [address] [id number] [place] [address]- 9128 February, [facility] [place] [facility] [address] [id number] [place] [address]- 6886 February, [facility] [place] [facility] [address] [id number] [place] [address]- 1988 Jan, [facility] [place] [facility] [address] [id number] [place] [address]- 1118 Jan, [facility] [place] [facility] [address] [id number] [place] [address]- 4942 Dec, [facility] [place] [facility] [address] [id number] [place] [address]- 9544 Dec, [facility] [place] [facility] [address] [id number] [place] [address]- 2314 Nov, [facility] [place] [facility] [address] [id number] [place] [address]- 0566 Nov, [facility] [place] [facility] [address] [id number] [place] [address]- 2620 Oct, [facility] [place] [facility] [address] [id number] [place] [address]- 8085 Oct, [facility] [place] [facility] [address] [id number] [place] [address]- 2906 Oct, [facility] [place] [facility] [address] [id number] [place] [address]- 4896 Oct, [facility] [place] [facility] [address] [id number] [place] [address]- 4091 16 Sep, 2012 [facility] [address] [id number] [place] [address]- 3520 Sep, [facility] [address] [id number] [place] [address]- 8183 Sep, [facility] [address] [id number] [place] [address]- 0038 Sep, 2012 [facility] [address] [id number] [place] [address]- 9347 Sep, [facility] [address] [id number] [place] [address]- 5115 Sep, [facility] [address] [id number] [place] [address]- 5025 Sep, [facility] [address] [id number] [place] [address]- 8638 Sep, [facility] [address] [id number] [place] [address]- 1946 Aug, [facility] [address] [id number] [place] [address]- 6270 Aug, [facility] [address] [id number] [place] [address]- 7935 Aug, [facility] [address] [id number] [place] [address]- 0866 Aug, [facility] [address] [id number] [place] [address]- 9658 Aug, [facility] [place] [facility] [address] [id number] [place] [address]- 0688 Aug, [facility] [address] [id number] [place] [address]- 0661 Aug, [facility] [address] [id number] [place] [address]- 7536 Aug, [facility] [address] [id number] [place] [address]- 4486 Aug, [facility] [place] [facility] [address] [id number] [place] [address]- 2546 Jul, [facility] [place] [facility] [address] [id number] [place] [address]- 8596 Jun, [facility] [place] [facility] [address] [id number] [place] [address]- 2546 May, [facility] [place] [facility] [address] [id number] [place] [address]- 7667 May, [facility] [place] [facility] [address] [id number] [place] [address]- 8786 May, [facility] [place] [facility] [address] [id number] [place] [address]- 2546 Apr, [facility] [place] [facility] [address] [id number] [place] [address]- 9195 Mar, [facility] [place] [facility] [address] [id number] [place] [address]- 2511 February, [facility] [place] [facility] [address] [id number], [place] [address]- 3625 Oct, [facility] [place] [facility] [address] [id number], [place] [address]- 2355 Oct, [facility] [place] [facility] [address] [id number], [place] [address]- 2045 Oct, [facility] [place] [facility] [address] [id number] [place] [address]- 6525 Oct, [facility] [place] [facility] [address] [id number], [place] [address]- 6946 Oct, [facility] [place] [facility] [address] [id number], [place] [address]- 1486 Oct, [facility] [place] [facility] [address] [id number], [place] [address]- 7513 Sep, [facility] [place] [facility] [address] [id number] [place] [address]- 9096 Sep, [facility] [place] [facility] [address] [id number] [place] [address]- 0273 Aug, [facility] [place] [facility] [address] [facility] [id number] [place] [address]- 7799 Aug, [facility] [place] [facility] [address] [id number] [place] [address]- 7044 Jul, [facility] [place] [facility] [address] [id number] [place] [address], [place] [address]- 5502 Jul, [facility] [place] [facility] [address] [id number] [place] [address]- 6638 Jul, [facility] [place] [facility] [id number] [place] [address], [place] [address]- 1391 Jul, [facility] [place] [facility] [address] [id number] [place] [address]- 4789 Jul, [facility] [place] [facility] [address] [id number] [place] [address]- 2849 Jul, [facility] [place] [facility] [address] [facility] [id number] [place] [address]- 4869 Jul, [facility] [place] [facility] [address] [facility] [id number], [place] [address]- 8579 Jul, [facility] [place] [facility] [address] [id number], [place] [address]- 7226 Jun, [facility] [place] [facility] [address] [id number] [place] [address]- 2613 Jun, [facility] [place] [facility] [address] [facility] [id number], [place] [address]- 3086 May, [facility] [place] [facility] [address] [facility] [id number] [place] [address]- 4784 Apr, [facility] [place] [facility] [address] [id number] [place] [address]- 1716 Mar, [facility] [place] [facility] [address] [id number] [place] [address]- 5221 Mar, [facility] [place] [facility] [address] [id number] [place] [address]- 4682 Mar, [facility] [place] [facility] [address] [id number] [place] [address]- 4625 Mar, [facility] [place] [facility] [address] [id number] [place] [address]- 5176 Jan, [facility] [place] [facility] [address] [id number] [place] [address]- 1513 Nov, [facility] [place] [facility] [address] [id number] [place] [address]- 2813 Nov, [facility] [place] [facility] [address] [id number] [place] [address]- 2199 Nov, [facility] [place] [facility] [address] [id number] [place] [address]- 4754 Oct, [facility] [place] [facility] [address] [id number] [place] [address]- 4294 Sep, [facility] [place] [facility] [address] [id number] [place] [address]- 7300 Sep, [facility] [place] [facility] [address] [id number] [place] [address]- 8912 Aug, [facility] [place] [facility] [address] [id number] [place] [address]- 3949 Aug, [facility] [place] [facility] [address] [id number] [place] [address]- 3339 Aug, [facility] [place] [facility] [address] [id number] [place] [address]- 7344 Aug, [facility] [place] [facility] [address] [id number], [place] [address]- 1226 Jul, [facility] [place] [address] [facility] [id number], [place] [address]- 7466 May, [facility] [place] [address] [id number], [place] [address] 2546 Jan, [facility] [place] [address] [id number], [place] [address]- 5196 Nov, [facility] [place] [address] [id number], [place] [address]- 9426 Apr, [facility] [place] [address] [facility] [id number], [place] [address]- 6776 Dec, [facility] [place] [address] [id number], [place] [address]- 0566 Nov, IMMUNIZATIONS No Known Immunizations SOCIAL HISTORY Never Assessed REASON FOR VISIT FYI only PLAN OF CARE VITAL SIGNS MEDICATIONS Unknown Medications RESULTS No Results PROCEDURES No Known procedures INSTRUCTIONS MEDICATIONS ADMINISTERED No Known Medications MEDICAL (GENERAL) HISTORY Type Description Date Medical History Cardiovascular gxypcnqy-FWZ-Ejiccbky, 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 Mendoza Medical History Stress test 03/07/13-Dr. Kelly Dietrich normal Medical History Hypertension Medical History Asthma Medical History Gastrointestinal Disorder--IBS, GERD, Hx of fatty liver Medical History Hernia 1978 Medical History Cervical dysplasia 02/16-Pap LGSIL/[place]-mild dysplasia Medical History Hyperlipidemia Medical History Rheumatoid [...] Kidney injury 07/10/15-07/11/2015 Hospitalization History Symptomatic Hypokalemia/Nause-[facility]ia [facility] 05/13/16 Hospitalization History Stroke 05/03/2017 Hospitalization History stroke 08/24/2017--09/01/2017
--- OUTSIDE RECORDS SUMMARY | 2018-06-12 16:21 | XMS REPORT ---
Author Author LORI SNOWDEN Organization [facility] Address [address] [place] [address] Care Team Providers Care Textile Dyer Name Role Phone LORI SNOWDEN Unavailable PROBLEMS Type Condition ICD9-CM Code AQM91-NM Code Onset Dates Condition Status SNOMED Code Problem ADHD (attention deficit hyperactivity disorder), combined type F90.2 Active 59649420 Problem Other fci (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 Active 460591585 Problem Generalized anxiety disorder F41.1 Active 34322231 Problem Cerebrovascular accident (CVA), unspecified mechanism I63.9 Active 647831819 Problem Asthma J45.909 Active 257025652 Problem Dysthymic disorder F34.1 Active 44874640 Problem Rheumatoid arthritis involving multiple sites, unspecified rheumatoid factor presence M06.9 Active 977355717 Problem Sleep apnea in adult G47.30 Active 43572570 Problem Seasonal allergies J30.2 Active 190211042 Problem Mild episode of recurrent major depressive disorder F33.0 Active 684166706 Problem Rheumatoid arthritis M06.9 Active 82708760 Problem Chronic pain syndrome G89.4 Active 923006212 Problem Hypertension I10 Active 93618444 Problem Anxiety F41.9 Active 02019796 Problem Gastroesophageal reflux disease with esophagitis K21.0 Active 913926017 Problem Panic attacks F41.0 Active 281246123 Problem Irritable bowel syndrome with diarrhea K58.0 Active 980310522 Problem Mixed hyperlipidemia E78.2 Active 606595176 Problem Hyperinsulinemia E16.1 Active 81786498 Problem Weight gain R63.5 Active 1945628 Problem Arteriosclerotic coronary artery disease I25.10 Active 91807154 Problem Chronic obstructive pulmonary disease, unspecified J44.9 Active [id number] Problem Obstructive sleep apnea G47.33 Active 81978449 Problem Neuropathy G62.9 Active 609580973 Problem Other insomnia G47.09 Active 261372636 ALLERGIES No Information ENCOUNTERS Encounter Location Date Diagnosis [facility] [id number] [place] [address] 59395- 8737 Mar, [facility] [id number] [place] [address] 90363- 9005 February, Generalized anxiety disorder F41.1 [facility] [id number] [place] [address] 95702 -9017 February, Cough R05 and Seasonal allergies J30.2 [facility] [id number] [place] [address] 05254- 8593 February, Generalized anxiety disorder F41.1 and Mild episode of recurrent major depressive disorder F33.0 [facility] [id number] [place] [address] 33067- 8124 February, Other clinical pharmacy coordinator (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 ; Anxiety F41.9 ; Panic attacks F41.0 and Irritable bowel syndrome with diarrhea K58.0 [facility] [id number] [place] [address] 55340- 1004 February, [facility] [id number] [place] [address] 14102- 6099 Jan, Mixed hyperlipidemia E78.2 [facility] [id number] [place] [address] 35805- 7597 Jan, [facility] [id number] [place] [address] 80138- 0790 Jan, [facility] [id number] [place] [address] 13569- 5307 Jan, [facility] [id number] [place] [address] 94672- 7842 Jan, [facility] [id number] [place] [address] 83060- 5165 Dec, [facility] [id number] [place] [address] 08062- 6325 Dec, [facility] [id number] [place] [address] 90401- 2465 Dec, [facility] [address] 63870- 7733 Nov, Dysthymic disorder F34.1 [facility] [address] 61787- 7404 Oct, [facility] [address] 29101- 1770 Oct, [facility] [address] 05794- 4211 Oct, [place] [address] 98208- 9368 Oct, Diarrhea, unspecified type R19.7 and Dysuria R30.0 [place] [address] 54899- 1654 Oct, [facility] [id number] [place] [address] 73965- 5210 Sep, [place] [address] 11080- 4386 Sep, [place] [address] 03026- 4721 Sep, Anxiety F41.9 [place] [id number] [place] [address] 59089- 2528 Sep, Cerebrovascular accident (CVA), unspecified mechanism I63.9 ; Mixed hyperlipidemia E78.2 ; Gastroesophageal reflux disease with esophagitis K21.0 and Anxiety F41.9 [place] [id number] [place] [address] 13543- 7758 Sep, [facility] [id number] [place] [address] 47422- 6352 Aug, Chronic obstructive pulmonary disease, unspecified J44.9 ; Asthma J45.909 ; Nausea R11.0 ; Dysthymic disorder F34.1 ; Cerebrovascular accident (CVA), unspecified mechanism I63.9 and Rheumatoid arthritis M06.9 [facility] [address] 77376- 7429 Aug, Nausea R11.0 ; Encounter for immunization Z23 ; Sleep apnea in adult G47.30 ; Rheumatoid arthritis involving multiple sites, unspecified rheumatoid factor presence M06.9 ; Generalized anxiety disorder F41.1 ; Dysthymic disorder F34.1 and Asthma J45.909 [place] [address] 18916- 8132 Jul, [place] [address] 42099- 7531 May, ADHD (attention deficit hyperactivity disorder), combined type F90.2 ; Generalized anxiety disorder F41.1 and Persistent depressive disorder F34.1 [place] [address] 18018- 7212 May, Cerebrovascular accident (CVA), unspecified mechanism I63.9 [place] [address] 66318- 4373 Apr, Mixed hyperlipidemia E78.2 and Cerebrovascular accident (CVA ), unspecified mechanism I63.9 [place] [address] 69202- 4778 Apr, Generalized anxiety disorder F41.1 [place] [address] 23855- 0143 Apr, Bronchitis J40 and Tobacco use Z72.0 [place] [address] 57706- 5482 Apr, Mixed hyperlipidemia E78.2 [place] [address] 84978- 7727 Apr, Other fci (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 [place] [address] [place] [address]- 9391 Apr, [facility] [id number] [place] [address] 07678- 4407 Apr, Generalized anxiety disorder F41.1 [facility] [id number] [place] [address] 88977- 4168 Apr, Obstructive sleep apnea G47.33 and Hyperinsulinemia E16.1 [place] [address] 20209- 9805 Apr, ADHD (attention deficit hyperactivity disorder), combined type F90.2 ; Generalized anxiety disorder F41.1 and Persistent depressive disorder F34.1 [place] [address] 55600- 1117 Mar, [place] [address] 50205- 2054 Mar, Generalized anxiety disorder F41.1 [place] [address] 92934- 6569 Mar, Tarsal tunnel syndrome of both lower extremities G57.53 [place] [address] 69353- 6844 February, [place] [id number] [place] [address] 94690- 8199 February, [place] [id number] [place] [address] 78564- 9085 February, Asthma J45.909 [facility] [id number] [place] [address] 97019- 8260 February, Generalized anxiety disorder F41.1 [place] [id number] [place] [address] 41956- 8083 February, Hypoxemia R09.02 ; Hyperglycemia R73.9 ; Rheumatoid arthritis M06.9 and Generalized anxiety disorder F41.1 [facility] [address] 47695- 9844 February, [facility] [id number] [place] [address] 03935- 5150 Jan, Chronic obstructive pulmonary disease, unspecified J44.9 [facility] [id number] [place] [address] 78121- 5118 Jan, Chronic pain syndrome G89.4 [place] [address] 61301- 5433 Jan, Hypoxemia R09.02 [place] [address] 61568- 3946 Jan, [place] [address] 31714- 0906 Jan, Chronic obstructive pulmonary disease, unspecified J44.9 ; Hypoxemia R09.02 ; Other insomnia G47.09 and Left anterior shoulder pain M25.512 [place] [address] 80043- 2925 Jan, Numbness in feet R20.0 and Neuropathy G62.9 [place] [address] 28897- 5690 Jan, [place] [id number] [place] [address] 91040- 1096 Dec, Acute pain of left shoulder M25.512 [place] [id number] [place] [address] 24199- 8421 Dec, Acute pain of left shoulder M25.512 [place] [id number] [place] [address] 69766- 7149 Dec, Generalized anxiety disorder F41.1 [place] [address] 96008- 8872 Dec, Generalized anxiety disorder F41.1 [place] [id number] [place] [address] 20018- 0397 27 Feb, 2017 ADHD (attention deficit hyperactivity disorder), combined type F90.2 ; Generalized anxiety disorder F41.1 and Persistent depressive disorder F34.1 [facility] [id number] [place] [address] 28974- 4445 Nov, Acute pain of left shoulder M25.512 [facility] [id number] [place] [address] 56093- 2212 20 Nov, 2016 ADHD (attention deficit hyperactivity disorder), combined type F90.2 ; Generalized anxiety disorder F41.1 and Persistent depressive disorder F34.1 [facility] [id number] [place] [address] 17963- 9246 17 Nov, 2016 Chronic pain syndrome G89.4 [facility] [address] 69989- 3268 13 Nov, 2016 Chronic pain syndrome G89.4 [facility] [address] 13439- 2746 08 Nov, 2016 Acute pain of left shoulder M25.512 [facility] [id number] [place] [address] 42086- 8418 Nov, Generalized anxiety disorder F41.1 [facility] [id number] [place] [address] 85440- 0301 Nov, Acute pain of left shoulder M25.512 [facility] [id number] [place] [address] 57740- 8881 Nov, ADHD (attention deficit hyperactivity disorder), combined type F90.2 ; Generalized anxiety disorder F41.1 and Persistent depressive disorder F34.1 [facility] [id number] [place] [address] 35970- 8243 Nov, Acute pain of left shoulder M25.512 ; Generalized anxiety disorder F41.1 ; Chronic pain syndrome G89.4 ; Hyperinsulinemia E16.1 ; Pain of left foot M79.672 and Pain in right foot M79.671 [facility] [address] 69989- 4529 Oct, ADHD (attention deficit hyperactivity disorder), combined type F90.2 ; Generalized anxiety disorder F41.1 and Dysthymic disorder F34.1 [place] [address] [place] [address] 99939- 6087 Sep, [place] [id number] [place] [address] 62526- 6777 Sep, [place] [address] 48910- 3931 Sep, Routine gynecological examination V72.31 ; Cervical cancer screening Z12.4 ; Breast cancer screening Z12.39 ; Colon cancer screening Z12.11 ; Hypokalemia E87.6 ; Herpes simplex type 1 infection B00.9 and Abscess of right axilla L02.411 [place] [id number] [place] [address] 18265- 0565 Sep, [place] [id number] [place] [address] 64955- 3336 Sep, ADHD (attention deficit hyperactivity disorder), combined type F90.2 ; Generalized anxiety disorder F41.1 and Dysthymic disorder F34.1 [place] [id number] [place] [address] 55598- 4984 Aug, [place] [id number] [place] [address] 41033- 0036 Aug, [place] [id number] [place] [address] 54198- 5267 Aug, Generalized anxiety disorder F41.1 [place] [id number] [place] [address] 88109- 7538 Aug, ADHD (attention deficit hyperactivity disorder), combined type F90.2 ; Generalized anxiety disorder F41.1 and Dysthymic disorder F34.1 [place] [address] [place] [address] 11999- 0889 Jul, Chronic pain syndrome G89.4 ; Hypertension I10 ; Hypokalemia E87.6 ; Asthma J45.909 and Nausea R11.0 [place] [address] 42498- 8632 Jul, [place] [address] 22763- 5181 Jul, Asthma J45.909 [place] [address] 45321- 1723 Jul, ADHD (attention deficit hyperactivity disorder), combined type F90.2 ; Generalized anxiety disorder F41.1 and Dysthymic disorder F34.1 [place] [address] 28455- 4188 Jul, [place] [address] 58667- 6665 Jul, Hypertension I10 ; Arteriosclerotic coronary artery disease I25.10 ; Mixed hyperlipidemia E78.2 ; Other fci (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 and Hyperglycemia R73.9 [place] [address] 27324- 6373 16 Jun, 2016 Hypokalemia E87.6 and Hyperglycemia R73.9 [place] [address] 07739- 5493 14 Jun, 2016 [place] [address] 69960- 6739 13 Jun, 2016 Abnormal kidney function N28.9 [place] [id number] [place] [address] 52291- 0204 Jun, [place] [address] 42830- 6827 Jun, ADHD (attention deficit hyperactivity disorder), combined type F90.2 ; Generalized anxiety disorder F41.1 and Dysthymic disorder F34.1 [place] [address] 65396- 4985 Jun, Generalized anxiety disorder F41.1 and Dysthymic disorder F34.1 [place] [address] 768876- 7244 Jun, Hypokalemia E87.6 [place] [address] 13140- 6604 May, Hypokalemia E87.6 ; Vertigo R42 and Hyperinsulinemia E16.1 [place] [address] 15152- 1993 May, [place] [address] 22113- 0001 May, Abnormal kidney function N28.9 ; Hyperinsulinemia E16.1 and Nausea R11.0 [place] [address] 65470- 9559 May, Hypokalemia E87.6 ; Nausea R11.0 ; Epigastric pain R10.13 ; Dehydration E86.0 ; Diaphoresis R61 and Right arm pain M79.601 [place] [address] 23587- 1741 May, [place] [address] 32266- 8254 May, Hypokalemia E87.6 [place] [address] 69226- 4426 May, Hypokalemia E87.6 [place] [address] 35865- 2054 Apr, [place] [address] 61661- 4999 Apr, ADHD (attention deficit hyperactivity disorder), combined type F90.2 ; Generalized anxiety disorder F41.1 and Dysthymic disorder F34.1 [place] [address] 22599- 7767 Apr, Right arm pain M79.601 and Hyperinsulinemia E16.1 [place] [id number] [place] [address] 02772- 5020 Mar, [place] [id number] [place] [address] 58210- 4553 Mar, [place] [address] 71461- 1652 Mar, Hyperinsulinemia E16.1 ; Hyperlipidemia, unspecified hyperlipidemia type E78.5 ; Central venous catheter in place Z78.9 ; Generalized anxiety disorder F41.1 and Urinary tract infection, site not specified N39.0 [place] [address] 19876- 1168 Mar, ADHD (attention deficit hyperactivity disorder), combined type F90.2 ; Generalized anxiety disorder F41.1 and Dysthymic disorder F34.1 [place] [address] 81378- 9667 February, ADHD (attention deficit hyperactivity disorder), combined type F90.2 ; Generalized anxiety disorder F41.1 and Dysthymic disorder F34.1 [place] [id number] [place] [address] 62937- 6382 February, [place] [id number] [place] [address] 15151- 3811 February, [place] [address] 71683- 0191 February, Hypertension I10 and Weight gain R63.5 [place] [id number] [place] [address] 81427- 9885 February, Major depressive disorder, recurrent, moderate F33.1 and Generalized anxiety disorder F41.1 [place] [id number] [place] [address] 83731- 4899 February, ADHD (attention deficit hyperactivity disorder), combined type F90.2 ; Generalized anxiety disorder F41.1 and Dysthymic disorder F34.1 [facility] [address] [address]- 7777 February, [facility] [address] 2218 February, Asthma J45.909 ; Weight gain R63.5 ; Hypertension I10 ; Rheumatoid arthritis M06.9 and Chronic pain syndrome G89.4 [facility] [address] [address]- 2853 Jan, ADHD (attention deficit hyperactivity disorder), combined type F90.2 ; Generalized anxiety disorder F41.1 and Dysthymic disorder F34.1 [facility] [address] [address]- 0676 Dec, ADHD (attention deficit hyperactivity disorder), combined type F90.2 ; Generalized anxiety disorder F41.1 and Dysthymic disorder F34.1 [facility] [address] [address]- 3083 Dec, [facility] [address] [address]- 4651 Nov, [facility] [address] [address]- 1469 Nov, [facility] [address] [place] [address]- 1640 Nov, [facility] [address] [address]- 7942 Nov, [facility] [address] [place] [address]- 4743 Oct, [facility] [address] [address]- 7675 Oct, [facility] [address] [place] [address]- 6588 Oct, [facility] [address] [address]- 4718 Sep, [facility] [address] [place] [address]- 1547 Sep, [facility] [address] [address]- 3912 Sep, Agoraphobia with panic disorder F40.01 ; Attention-deficit hyperactivity disorder, combined type F90.2 and Dysthymic disorder F34.1 [facility] [address] [address]- 0926 Aug, [facility] [id number] [place] [address] 59545- 9480 Aug, [facility] [address] [place] [address] 36618- 6766 Aug, [facility] [address] [address]- 4329 Aug, Dysthymic disorder F34.1 ; Generalized anxiety disorder F41.1 and ADHD (attention deficit hyperactivity disorder), combined type F90.2 [facility] [address] [address]- 6447 Aug, ADHD (attention deficit hyperactivity disorder), combined type F90.2 ; Generalized anxiety disorder F41.1 and Dysthymic disorder F34.1 [facility] [address] [address]- 6760 Jul, Urinary tract infection, site not specified N39.0 ; Hypotension, unspecified I95.9 and Breast cancer screening Z12.39 [facility] [address] [address]- 6699 Jul, [facility] [address] [address]- 4782 Jul, [facility] [address] [place] [address]- 3709 Jul, Urinary tract infection, site not specified N39.0 ; Nausea R11.0 ; Gastroenteritis K52.9 ; Renal failure N19 and Other hypotension I95.89 [place] [id number] [place] [address] 60533- 4367 Jul, [facility] [id number] [place] [address] 41869- 8114 Jul, [facility] [id number] [place] [address] 13840- 5742 Jul, [facility] [id number] [place] [address] 83006- 4910 Jun, [place] [id number] [place] [address] 40022- 9546 Jun, Major depression in partial remission 296.25 ; Generalized anxiety disorder 300.02 and ADHD, predominantly inattentive type 314.01 [place] [id number] [place] [address] 29142- 8392 May, [place] [id number] [place] [address] 54440- 0754 Apr, Major depressive disorder, recurrent episode, severe, without mention of psychotic behavior 296.33 ; Agoraphobia with panic disorder 300.21 and Generalized anxiety disorder 300.02 [place] [id number] [place] [address] 18785- 2190 Apr, ADHD (attention deficit hyperactivity disorder), combined type 314.01 ; Generalized anxiety disorder 300.02 and Dysthymic disorder 300.[address] [place] [address] 20368- 2415 Apr, CAD (coronary artery disease) 414.00 ; HTN (hypertension) 401.9 and Tobacco use 305.1 [address] [place] [address] 16295- 5333 Apr, [place] [id number] [place] [address] 12824- 8165 Mar, ADHD (attention deficit hyperactivity disorder), combined type 314.01 ; Generalized anxiety disorder 300.02 ; Dysthymic disorder 300.4 ; No condition on [place] II V71.09 ; Rheumatoid arthritis 714.0 ; Incontinence 788.30 ; Irritable bowel syndrome 564.1 ; Osteoporosis 733.00 and Chronic pain 338.29 [facility] [id number] [place] [address] 17612- 6691 16 Mar, 2015 Agoraphobia with panic disorder 300.21 and Major depressive disorder, recurrent episode, moderate 296.32 [facility] [id number] [place] [address] 81346- 7518 Mar, [facility] [id number] [place] [address] 63464- 4363 February, [facility] [id number] [place] [address] 70098- 6900 February, Agoraphobia with panic disorder 300.21 and Major depressive disorder, recurrent episode, moderate 296.32 [facility] [id number] [place] [address] 90105- 9260 February, [facility] [id number] [place] [address] 91359- 4724 Jan, [facility] [id number] [place] [phone] Jan, [facility] [id number] [place] [address] [phone] Dec, [facility] [id number] [place] [address] [phone] Dec, [facility] [id number] [place] [place] [address]- [address]62 Dec, [facility] [id number] [place] [address]- 4881 Dec, [facility] [id number] [place] [address]- 1597 Dec, [facility] [place] [facility] [address] [id number] [place] [address] 3151 Dec, [facility] [place] [facility] [address] [id number] [place] [address] 0074 Nov, 2014 [facility] [place] [facility] [address] [id number] [place] [address] 2326 Nov, 2014 [facility] [place] [facility] [address] [id number] [place] [address] 9936 Nov, 2014 [facility] [place] [facility] [address] [id number] [place] [address]- 3792 Nov, 2014 [facility] [place] [facility] [address] [id number] [place] [address]- 9926 Nov, 2014 [facility] [place] [facility] [address] [id number] [place] [address]- 2826 Nov, [facility] [place] [facility] [address] [id number] [place] [address]- 3762 Nov, 2014 [facility] [place] [facility] [address] [id number] [place] [address]- 4169 Nov, [facility] [place] [facility] [address] [facility] [id number] [place] [address]- 4686 Oct, [facility] [place] [facility] [address] [id number] [place] [address]- 4619 Oct, [facility] [place] [facility] [address] [id number], [place] [address] 7437 Oct, [facility] [place] [facility] [address] [id number] [place] [address]- 9527 Oct, [facility] [place] [facility] [address] [id number] [place] [address]- 6839 Oct, [facility] [place] [facility] [address] [facility] [id number] [place] [address]- 0743 Oct, [facility] [place] [facility] [address] [id number] [place] 8833 29 Sep, 2014 [facility] [place] [facility] [address] [id number] [place] [address]- 1417 29 Sep, 2014 [facility] [place] [facility] [address] [id number] [place] 7[address] Sep, [facility] [place] [facility] [address] [facility] [id number] [place] 1716 Sep, [facility] [place] [facility] [address] [id number] [place] [address]- 5355 Sep, [facility] [place] [facility] [address] [id number] [place] [address]- 7853 05 Sep, 2014 [facility] [place] [facility] [address] [id number] [place] [address]- 6897 Sep, [facility] [place] [facility] [address] [id number] [place] [address]- 1853 24 Aug, 2014 [facility] [place] [facility] [address] [id number] [place] [address]- 9158 24 Aug, 2014 [facility] [place] [facility] [address] [id number] [place] [address]- 4178 Aug, [facility] [place] [facility] [address] [facility] [id number] [place] [address]- 3551 Aug, [facility] [place] [facility] [address] [id number] [place] [address]- 6114 18 Aug, 2014 [facility] [place] [facility] [address] [facility] [id number], [place] [address]- 8511 18 Aug, 2014 [facility] [place] [facility] [address] [id number] [place] [address]- 9481 17 Jul, 2014 [facility] [place] [facility] [address] [facility] [id number] [place] [address]- 6779 17 Jul, 2014 [facility] [place] [facility] [address] [facility] [id number], [place] [address]- 1280 13 Jul, 2014 [facility] [place] [facility] [address] [id number] [place] [address]- 9764 Jul, [facility] [place] [facility] [address] [id number] [place] [address]- 4189 Jul, [facility] [place] [facility] [address] [id number] [place] [address]- 4025 Jul, [facility] [place] [facility] [address] [id number] [place] [address]- 1665 Jun, [facility] [place] [facility] [address] [id number] [place] [address]- 7856 Jun, [facility] [place] [facility] [address] [id number] [place] [address]- 6111 May, [facility] [place] [facility] [address] [id number] [place] [address]- 8786 May, [facility] [place] [facility] [address] [id number] [place] [address]- 7908 Apr, [facility] [place] [facility] [address] [id number] [place] [address]- 1651 Apr, [facility] [place] [facility] [address] [id number] [place] [address]- 4829 Apr, [facility] [place] [facility] [address] [id number] [place] [address]- 5317 Apr, [facility] [place] [facility] [address] [id number] [place] [address]- 5750 Mar, [facility] [place] [facility] [address] [id number] [place] [address]- 4107 Mar, [facility] [place] [facility] [address] [id number] [place] [address]- 8690 Mar, [facility] [place] [facility] [address] [id number] [place] [address]- 1579 Mar, [facility] [place] [facility] [address] [id number] [place] [address]- 7397 February, [facility] [place] [facility] [address] [id number] [place] [address]- 3732 February, [facility] [place] [facility] [address] [id number] [place] [address]- 2239 February, [facility] [place] [facility] [address] [id number] [place] [address]- 4753 February, [facility] [place] [facility] [address] [id number] [place] [address]- 3210 February, [facility] [place] [facility] [address] [id number] [place] [address]- 8414 February, [facility] [place] [facility] [address] [id number] [place] [address]- 3145 Jan, [facility] [place] [facility] [address] [id number] [place] [address]- 6150 Jan, [facility] [place] [facility] [address] [id number] [place] [address]- 7157 Dec, [facility] [place] [facility] [address] [id number] [place] [address]- 4389 Dec, [facility] [place] [facility] [address] [id number] [place] [address]- 6894 Nov, [facility] [place] [facility] [address] [id number] [place] [address]- 4393 Nov, [facility] [place] [facility] [address] [id number] [place] [address]- 3141 Oct, [facility] [place] [facility] [address] [id number] [place] [address]- 8973 Oct, [facility] [place] [facility] [address] [id number] [place] [address]- 1844 Oct, [facility] [place] [facility] [address] [id number] [place] [address]- 7913 Oct, [facility] [place] [facility] [address] [id number] [place] [address]- 2932 16 Sep, 2012 [facility] [address] [id number] [place] [address]- 9755 Sep, [facility] [address] [id number] [place] [address]- 4311 Sep, [facility] [address] [id number] [place] [address]- 3413 Sep, 2012 [facility] [address] [id number] [place] [address]- 7620 Sep, [facility] [address] [id number] [place] [address]- 3704 Sep, [facility] [address] [id number] [place] [address]- 5543 Sep, [facility] [address] [id number] [place] [address]- 4770 Sep, [facility] [address] [id number] [place] [address]- 3246 Aug, [facility] [address] [id number] [place] [address]- 0790 Aug, [facility] [address] [id number] [place] [address]- 1529 Aug, [facility] [address] [id number] [place] [address]- 3200 Aug, [facility] [address] [id number] [place] [address]- 6955 Aug, [facility] [place] [facility] [address] [id number] [place] [address]- 7122 Aug, [facility] [address] [id number] [place] [address]- 5368 Aug, [facility] [address] [id number] [place] [address]- 4071 Aug, [facility] [address] [id number] [place] [address]- 3294 Aug, [facility] [place] [facility] [address] [id number] [place] [address]- 2546 Jul, [facility] [place] [facility] [address] [id number] [place] [address]- 3036 Jun, [facility] [place] [facility] [address] [id number] [place] [address]- 2546 May, [facility] [place] [facility] [address] [id number] [place] [address]- 6448 May, [facility] [place] [facility] [address] [id number] [place] [address]- 7796 May, [facility] [place] [facility] [address] [id number] [place] [address]- 2546 Apr, [facility] [place] [facility] [address] [id number] [place] [address]- 3866 Mar, [facility] [place] [facility] [address] [id number] [place] [address]- 1631 February, [facility] [place] [facility] [address] [id number], [place] [address]- 4235 Oct, [facility] [place] [facility] [address] [id number], [place] [address]- 4466 Oct, [facility] [place] [facility] [address] [id number], [place] [address]- 9396 Oct, [facility] [place] [facility] [address] [id number] [place] [address]- 8394 Oct, [facility] [place] [facility] [address] [id number], [place] [address]- 3666 Oct, [facility] [place] [facility] [address] [id number], [place] [address]- 4306 Oct, [facility] [place] [facility] [address] [id number], [place] [address]- 4801 Sep, [facility] [place] [facility] [address] [id number] [place] [address]- 8833 Sep, [facility] [place] [facility] [address] [id number] [place] [address]- 5469 Aug, [facility] [place] [facility] [address] [facility] [id number] [place] [address]- 6793 Aug, [facility] [place] [facility] [address] [id number] [place] [address]- 5280 Jul, [facility] [place] [facility] [address] [id number] [place] [address], [place] [address]- 6625 Jul, [facility] [place] [facility] [address] [id number] [place] [address]- 4489 Jul, [facility] [place] [facility] [id number] [place] [address], [place] [address]- 2837 Jul, [facility] [place] [facility] [address] [id number] [place] [address]- 2542 Jul, [facility] [place] [facility] [address] [id number] [place] [address]- 3935 Jul, [facility] [place] [facility] [address] [facility] [id number] [place] [address]- 0064 Jul, [facility] [place] [facility] [address] [facility] [id number], [place] [address]- 3356 Jul, [facility] [place] [facility] [address] [id number], [place] [address]- 5585 Jun, [facility] [place] [facility] [address] [id number] [place] [address]- 8336 Jun, [facility] [place] [facility] [address] [facility] [id number], [place] [address]- 9162 May, [facility] [place] [facility] [address] [facility] [id number] [place] [address]- 3951 Apr, [facility] [place] [facility] [address] [id number] [place] [address]- 5174 Mar, [facility] [place] [facility] [address] [id number] [place] [address]- 0587 Mar, [facility] [place] [facility] [address] [id number] [place] [address]- 6895 Mar, [facility] [place] [facility] [address] [id number] [place] [address]- 4526 Mar, [facility] [place] [facility] [address] [id number] [place] [address]- 1092 Jan, [facility] [place] [facility] [address] [id number] [place] [address]- 5489 Nov, [facility] [place] [facility] [address] [id number] [place] [address]- 5187 Nov, [facility] [place] [facility] [address] [id number] [place] [address]- 5196 Nov, [facility] [place] [facility] [address] [id number] [place] [address]- 9102 Oct, [facility] [place] [facility] [address] [id number] [place] [address]- 5140 Sep, [facility] [place] [facility] [address] [id number] [place] [address]- 5283 Sep, [facility] [place] [facility] [address] [id number] [place] [address]- 8304 Aug, [facility] [place] [facility] [address] [id number] [place] [address]- 2729 Aug, [facility] [place] [facility] [address] [id number] [place] [address]- 1194 Aug, [facility] [place] [facility] [address] [id number] [place] [address]- 0706 Aug, [facility] [place] [facility] [address] [id number], [place] [address]- 9586 Jul, [facility] [address] [facility] [id number], [place] [address]- 5606 May, [facility] [address] [id number], [place] [address]- 2546 Jan, [facility] [address] [id number], [place] [address]- 9186 Nov, [facility] [address] [id number], [place] [address] 2546 Apr, [facility] [address] [facility] [id number], [place] [address]- 2976 Dec, [facility] [address] [id number], [place] [address]- 2316 Nov, IMMUNIZATIONS No Known Immunizations SOCIAL HISTORY Never Assessed REASON FOR VISIT Order request PLAN OF CARE VITAL SIGNS MEDICATIONS Unknown Medications RESULTS No Results PROCEDURES No Known procedures INSTRUCTIONS MEDICATIONS ADMINISTERED No Known Medications MEDICAL (GENERAL) HISTORY Type Description Date Medical History Cardiovascular cykjgksw-KUU-Gnagzgtf, 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 Mendoza Medical History Stress test 03/07/13-Dr. Kelly Dietrich normal Medical History Hypertension Medical History Asthma Medical History Gastrointestinal Disorder--IBS, GERD, Hx of fatty liver Medical History Hernia 1978 Medical History Cervical dysplasia 02/16-Pap [place]-mild dysplasia Medical History Hyperlipidemia Medical History Rheumatoid [...] Kidney injury 07/10/15-07/11/2015 Hospitalization History Symptomatic Hypokalemia/Nause-Via [facility] 05/13/16 Hospitalization History Stroke 05/03/2017 Hospitalization History stroke 08/24/2017--09/01/2017
--- OUTSIDE RECORDS SUMMARY | 2018-06-12 16:25 | XMS REPORT ---
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 Name Role Phone LORI SNOWDEN Unavailable PROBLEMS Type Condition ICD9-CM Code RFD77-HM Code Onset Dates Condition Status SNOMED Code Problem Chronic obstructive pulmonary disease, unspecified J44.9 Active [id number] Problem Other longterm (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 Active 342083943 Problem Obstructive sleep apnea G47.33 Active 26422052 Problem Anxiety F41.9 Active 24892850 Problem ADHD (attention deficit hyperactivity disorder), combined type F90.2 Active 17091006 Problem Gastroesophageal reflux disease with esophagitis K21.0 Active 802609729 Problem Generalized anxiety disorder F41.1 Active 51868706 Problem Sleep apnea in adult G47.30 Active 98444613 Problem Cerebrovascular accident (CVA), unspecified mechanism I63.9 Active 022616242 Problem Rheumatoid arthritis involving multiple sites, unspecified rheumatoid factor presence M06.9 Active 620922683 Problem Dysthymic disorder F34.1 Active 98104840 Problem Chronic pain syndrome G89.4 Active 929759195 Problem Asthma J45.909 Active 735960342 Problem Weight gain R63.5 Active 6719620 Problem Rheumatoid arthritis M06.9 Active 60478716 Problem Arteriosclerotic coronary artery disease I25.10 Active 80762851 Problem Hyperinsulinemia E16.1 Active 32260102 Problem Hypertension I10 Active 86120492 Problem Neuropathy G62.9 Active 257150866 Problem Mixed hyperlipidemia E78.2 Active 982190321 Problem Other insomnia G47.09 Active 902081298 ALLERGIES Substance Reaction Event Type Date Status Breo Ellipta nausea Drug Allergy Apr, Active Solu-Medrol rash, swelling Drug Allergy Apr, Active Paxil Unknown Drug Allergy Apr, Active Hydrocodone-Acetaminophen hives Drug Allergy Apr, Active Doxycycline Hyclate local swellling Drug Allergy Apr, Active Codeine Sulfate hives Drug Allergy Apr, Active Oxybutynin 5 Ea Tablet mouth sores Non Drug Allergy Apr, Active Iodinated Contrast Media - Iv Dye unknown Non Drug Allergy Apr, Active ENCOUNTERS Encounter Location Date Diagnosis [facility] [id number] [place] [address] 27926- 7784 Jan, [facility] [address] 03034- 7588 Dec, [facility] [id number] [place] [address] 76198- 9813 Dec, [facility] [address] 88888- 0891 Dec, [facility] [id number] [place] [address] 48907- 1087 Nov, Dysthymic disorder F34.1 [facility] [id number] [place] [address] 72891- 9464 Oct, [facility] [id number] [place] [address] 80233- 8331 Oct, [facility] [id number] [place] [address] 57749- 4533 Oct, [facility] [id number] [place] [address] 57453- 2008 Oct, Diarrhea, unspecified type R19.7 and Dysuria R30.0 [facility] [id number] [place] [address] 55825- 3970 Oct, [facility] [id number] [place] [address] 99945- 9190 Sep, [facility] [id number] [place] [address] 49305- 7820 Sep, [facility] [id number] [place] [address] 05949- 2338 Sep, Anxiety F41.9 [facility] [id number] [place] [address] 22059- 5277 Sep, Cerebrovascular accident (CVA), unspecified mechanism I63.9 ; Mixed hyperlipidemia E78.2 ; Gastroesophageal reflux disease with esophagitis K21.0 and Anxiety F41.[address] 81217- 6672 Sep, [address] 84381- 2336 Aug, Chronic obstructive pulmonary disease, unspecified J44.9 ; Asthma J45.909 ; Nausea R11.0 ; Dysthymic disorder F34.1 ; Cerebrovascular accident (CVA), unspecified mechanism I63.9 and Rheumatoid arthritis M06.[address] 80209- 9657 Aug, Nausea R11.0 ; Encounter for immunization Z23 ; Sleep apnea in adult G47.30 ; Rheumatoid arthritis involving multiple sites, unspecified rheumatoid factor presence M06.9 ; Generalized anxiety disorder F41.1 ; Dysthymic disorder F34.1 and Asthma J45.909 [id number] [place] [address] 36684- 1431 Jul, [address] 66229- 0496 May, ADHD (attention deficit hyperactivity disorder), combined type F90.2 ; Generalized anxiety disorder F41.1 and Persistent depressive disorder F34.1 [id number] [place] [address] 46000- 6659 May, Cerebrovascular accident (CVA), unspecified mechanism I63.9 [facility] [id number] [place] [address] 23252- 7409 Apr, Mixed hyperlipidemia E78.2 and Cerebrovascular accident (CVA ), unspecified mechanism I63.[address] 31845- 5405 Apr, Generalized anxiety disorder F41.1 [facility] [id number] [place] [address] 56208- 7319 Apr, Bronchitis J40 and Tobacco use Z72.0 [facility] [id number] [place] [address] 43098- 3322 Apr, Mixed hyperlipidemia E78.2 [facility] [facility] [address] 16690- 0827 Apr, Other longterm (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 [address] [place] [address] 05904- 2526 Apr, [facility] [id number] [place] [address] 70797- 7820 Apr, Generalized anxiety disorder F41.1 [facility] [id number] [place] [address] 17131- 0694 Apr, Obstructive sleep apnea G47.33 and Hyperinsulinemia E16.1 [facility] [id number] [place] [address] 26986- 0303 Apr, ADHD (attention deficit hyperactivity disorder), combined type F90.2 ; Generalized anxiety disorder F41.1 and Persistent depressive disorder F34.1 [facility] [id number] [place] [address] 62647- 6270 Mar, [facility] [id number] [place] [address] 94860- 1419 Mar, Generalized anxiety disorder F41.1 [facility] [id number] [place] [address] 93419- 4055 Mar, Tarsal tunnel syndrome of both lower extremities G57.53 [facility] [id number] [place] [address] 49649- 8926 February, [facility] [id number] [place] [address] 53305- 2754 February, [facility] [id number] [place] [address] 03269- 9530 February, Asthma J45.909 [facility] [id number] [place] [address] 66509- 2800 February, Generalized anxiety disorder F41.1 [facility] [id number] [place] [address] 93021- 6812 February, Hypoxemia R09.02 ; Hyperglycemia R73.9 ; Rheumatoid arthritis M06.9 and Generalized anxiety disorder F41.1 [facility] [id number] [place] [address] 14736- 5908 February, [facility] [address] 02697- 6504 Jan, Chronic obstructive pulmonary disease, unspecified J44.9 [address] [place] [address] 68207- 2922 Jan, Chronic pain syndrome G89.4 [facility] [id number] [place] [address] 75319- 0346 Jan, Hypoxemia R09.02 [facility] [id number] [place] [address] 83906- 5128 Jan, [facility] [id number] [place] [address] 41316- 5613 Jan, Chronic obstructive pulmonary disease, unspecified J44.9 ; Hypoxemia R09.02 ; Other insomnia G47.09 and Left anterior shoulder pain M25.512 [facility] [id number] [place] [address] 11271- 0966 Jan, Numbness in feet R20.0 and Neuropathy G62.9 [facility] [id number] [place] [address] 57243- 6602 Jan, [facility] [id number] [place] [address] 42864- 4489 Dec, Acute pain of left shoulder M25.512 [facility] [address] [address]- 4159 Dec, Acute pain of left shoulder M25.512 [facility] [address] [place] [address] 82674 2546 Dec, Generalized anxiety disorder F41.1 [facility] [address] [place] [address] 21149 2546 Dec, Generalized anxiety disorder F41.1 [facility] [address] [place] [address] 55207- 9808 Nov, ADHD (attention deficit hyperactivity disorder), combined type F90.2 ; Generalized anxiety disorder F41.1 and Persistent depressive disorder F34.1 [facility] [address] [place] [address] 61144- 6581 Nov, Acute pain of left shoulder M25.512 [facility] [id number] [place] [address] 16165- 7043 Nov, ADHD (attention deficit hyperactivity disorder), combined type F90.2 ; Generalized anxiety disorder F41.1 and Persistent depressive disorder F34.1 [facility] [address] [place] [address] 30980- 8620 Nov, Chronic pain syndrome G89.4 [facility] [address] [place] [address] 86907- 1786 Nov, Chronic pain syndrome G89.4 [facility] [address] [place] [address] 22943- 2543 08 Nov, 2016 Acute pain of left shoulder M25.512 [facility] [id number] [place] [address] 99068- 3766 Nov, Generalized anxiety disorder F41.1 [facility] [address] [place] [address] 08787- 2546 Nov, Acute pain of left shoulder M25.512 [facility] [id number] [place] [address] 20958- 8302 Nov, ADHD (attention deficit hyperactivity disorder), combined type F90.2 ; Generalized anxiety disorder F41.1 and Persistent depressive disorder F34.1 [address] [address] [place] [address] 06597- 4872 Nov, Acute pain of left shoulder M25.512 ; Generalized anxiety disorder F41.1 ; Chronic pain syndrome G89.4 ; Hyperinsulinemia E16.1 ; Pain of left foot M79.672 and Pain in right foot M79.671 [facility] [id number] [place] [address] 31466- 1361 Oct, ADHD (attention deficit hyperactivity disorder), combined type F90.2 ; Generalized anxiety disorder F41.1 and Dysthymic disorder F34.1 [facility] [id number] [place] [address] 18838- 2342 Sep, [facility] [id number] [place] [address] 16582- 2817 Sep, [id number] [place] [address] 85365- 8409 Sep, Routine gynecological examination V72.31 ; Cervical cancer screening Z12.4 ; Breast cancer screening Z12.39 ; Colon cancer screening Z12.11 ; Hypokalemia E87.6 ; Herpes simplex type 1 infection B00.9 and Abscess of right axilla L02.411 [facility] [id number] [place] [address] 48508- 8722 Sep, [facility] [id number] [place] [address] 04768- 3899 Sep, ADHD (attention deficit hyperactivity disorder), combined type F90.2 ; Generalized anxiety disorder F41.1 and Dysthymic disorder F34.1 [facility] [id number] [place] [address] 96599- 5933 Aug, [place] [id number] [place] [address]- 4202 Aug, [facility] [id number] [place] [address] 66228- 9329 Aug, Generalized anxiety disorder F41.1 [facility] [id number] [place] [address] 21871- 5356 Aug, ADHD (attention deficit hyperactivity disorder), combined type F90.2 ; Generalized anxiety disorder F41.1 and Dysthymic disorder F34.1 [facility] [id number] [place] [address] 85933- 1709 Jul, Chronic pain syndrome G89.4 ; Hypertension I10 ; Hypokalemia E87.6 ; Asthma J45.909 and Nausea R11.0 [facility] [id number] [place] [address] 37253- 3295 Jul, [address] [facility] [address] 29963- 8433 Jul, Asthma J45.909 [facility] [id number] [place] [address] 93704- 8135 Jul, ADHD (attention deficit hyperactivity disorder), combined type F90.2 ; Generalized anxiety disorder F41.1 and Dysthymic disorder F34.1 [facility] [id number] [place] [address] 15008- 7020 Jul, [facility] [id number] [place] [address] 48177- 1777 Jul, Hypertension I10 ; Arteriosclerotic coronary artery disease I25.10 ; Mixed hyperlipidemia E78.2 ; 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 and Hyperglycemia R73.9 [facility] [id number] [place] [address] 02948- 3284 16 Jun, 2016 Hypokalemia E87.6 and Hyperglycemia R73.9 [facility] [id number] [place] [address] 07200- 5931 14 Jun, 2016 [facility] [id number] [place] [address] 73199- 4851 13 Jun, 2016 Abnormal kidney function N28.9 [address] [place] 02781- 5086 Jun, [facility] [facility] [address] 15324- 5635 Jun, ADHD (attention deficit hyperactivity disorder), combined type F90.2 ; Generalized anxiety disorder F41.1 and Dysthymic disorder F34.1 [address] [place] [address] 02850- 5742 Jun, Generalized anxiety disorder F41.1 and Dysthymic disorder F34.1 [address] [address] 13622- 0913 Jun, Hypokalemia E87.6 [place] [facility] [address] 42054- 0606 May, Hypokalemia E87.6 ; Vertigo R42 and Hyperinsulinemia E16.[address] 30213- 0613 May, [place] [facility] [address] 31435- 0285 May, Abnormal kidney function N28.9 ; Hyperinsulinemia E16.1 and Nausea R11.0 [address] [place] [address] 38024- 3888 May, Hypokalemia E87.6 ; Nausea R11.0 ; Epigastric pain R10.13 ; Dehydration E86.0 ; Diaphoresis R61 and Right arm pain M79.601 [address] [address] 65728- 9915 May, [place] [address] 63337- 2580 May, Hypokalemia E87.6 [facility] [address] [address]- 2273 May, Hypokalemia E87.6 [facility] [address] [address]- 8389 Apr, [facility] [address] [address]- 0271 Apr, ADHD (attention deficit hyperactivity disorder), combined type F90.2 ; Generalized anxiety disorder F41.1 and Dysthymic disorder F34.1 [address] [place] [address]- 2527 Apr, Right arm pain M79.601 and Hyperinsulinemia E16.1 [facility] [facility] [address] [address]- 0064 Mar, [facility] [id number] [place] [address] 29840- 0950 Mar, [facility] [address] [address]- 9800 Mar, Hyperinsulinemia E16.1 ; Hyperlipidemia, unspecified hyperlipidemia type E78.5 ; Central venous catheter in place Z78.9 ; Generalized anxiety disorder F41.1 and Urinary tract infection, site not specified N39.0 [facility] [address] [address]- 6637 Mar, ADHD (attention deficit hyperactivity disorder), combined type F90.2 ; Generalized anxiety disorder F41.1 and Dysthymic disorder F34.1 [facility] [address] [address]- 4677 February, ADHD (attention deficit hyperactivity disorder), combined type F90.2 ; Generalized anxiety disorder F41.1 and Dysthymic disorder F34.1 [facility] [address] [address]- 4219 February, [facility] [id number] [place] [address] 04388- 0333 February, [place] [address]- 6894 February, Hypertension I10 and Weight gain R63.5 [address] [place] [place] [address] 32799- 9573 February, Major depressive disorder, recurrent, moderate F33.1 and Generalized anxiety disorder F41.1 [address] [place] [place] [address] 53755- 6825 February, ADHD (attention deficit hyperactivity disorder), combined type F90.2 ; Generalized anxiety disorder F41.1 and Dysthymic disorder F34.1 [address] [place] [place] [address] 85693- 8214 February, [address] [address] [place] [address] 94486- 2017 February, Asthma J45.909 ; Weight gain R63.5 ; Hypertension I10 ; Rheumatoid arthritis M06.9 and Chronic pain syndrome G89.4 [address] [address] [place] [address] 76332- 7908 Jan, ADHD (attention deficit hyperactivity disorder), combined type F90.2 ; Generalized anxiety disorder F41.1 and Dysthymic disorder F34.1 [place] [address] [address]- 6558 Dec, ADHD (attention deficit hyperactivity disorder), combined type F90.2 ; Generalized anxiety disorder F41.1 and Dysthymic disorder F34.1 [place] [address] [address]- 7859 Dec, [place] [address] [place] [address] 35947- 2698 Nov, [facility] [address] [address]- 8561 Nov, [place] [address] [address]- 9342 15 Nov, 2015 [facility] [address] 5316 Nov, [facility] [address]- 5593 Oct, [facility] [address] 7545 Oct, [facility] [address] 0898 Oct, [facility] [address] 0806 Sep, [facility] [address] [address]- 2363 Sep, [facility] [address] [address]- 8484 Sep, Agoraphobia with panic disorder F40.01 ; Attention-deficit hyperactivity disorder, combined type F90.2 and Dysthymic disorder F34.1 [facility] [address] [address]- 9902 Aug, [facility] [address], [place] [address]- 1489 Aug, [facility] [address], [place] [address]- 7877 Aug, [facility] [id number] [address]- 6575 Aug, Dysthymic disorder F34.1 ; Generalized anxiety disorder F41.1 and ADHD (attention deficit hyperactivity disorder), combined type F90.2 [facility] [id number] [address]- 3472 Aug, ADHD (attention deficit hyperactivity disorder), combined type F90.2 ; Generalized anxiety disorder F41.1 and Dysthymic disorder F34.1 [facility] [address], [place] [address]- 1371 Jul, Urinary tract infection, site not specified N39.0 ; Hypotension, unspecified I95.9 and Breast cancer screening Z12.39 [facility] [address] [place] [address] 56326- 1389 Jul, [facility] [id number] [place] [address] 29882- 2934 Jul, [facility] [id number] [place] [address] 37717- 9975 Jul, Urinary tract infection, site not specified N39.0 ; Nausea R11.0 ; Gastroenteritis K52.9 ; Renal failure N19 and Other hypotension I95.89 [facility] [id number] [place] [address] 28154- 5576 Jul, [facility] [id number] [place] [address] 15561- 0460 Jul, [facility] [id number] [place] [address] 69686- 6387 Jul, [facility] [id number] [place] [address] 95082- 3544 Jun, [facility] [address] [place] [address] 93102- 0950 Jun, Major depression in partial remission 296.25 ; Generalized anxiety disorder 300.02 and ADHD, predominantly inattentive type 314.01 [facility] [address] [place] [address] 40210- 2339 May, [facility] [id number] [place] [address] 03733- 8608 Apr, Major depressive disorder, recurrent episode, severe, without mention of psychotic behavior 296.33 ; Agoraphobia with panic disorder 300.21 and Generalized anxiety disorder 300.02 [facility] [id number] [place] [address] 29865- 8084 Apr, ADHD (attention deficit hyperactivity disorder), combined type 314.01 ; Generalized anxiety disorder 300.02 and Dysthymic disorder 300.4 [facility] [id number] [place] [address] 35458- 2356 Apr, CAD (coronary artery disease) 414.00 ; HTN (hypertension) 401.9 and Tobacco use 305.1 [place] [address] 74724- 7173 Apr, [facility] [id number] [place] [address] 35388- 8712 Mar, ADHD (attention deficit hyperactivity disorder), combined type 314.01 ; Generalized anxiety disorder 300.02 ; Dysthymic disorder 300.4 ; No condition on Winkelman II V71.09 ; Rheumatoid arthritis 714.0 ; Incontinence 788.30 ; Irritable bowel syndrome 564.1 ; Osteoporosis 733.00 and Chronic pain 338.29 [facility] [id number] [place] [address] 64743- 6274 Mar, Agoraphobia with panic disorder 300.21 and Major depressive disorder, recurrent episode, moderate 296.32 [facility] [id number] [place] [address] 57869- 3799 Mar, [facility] [id number] [place] [address] 23174- 8666 February, [facility] [id number] [place] [address] 43950- 6422 February, Agoraphobia with panic disorder 300.21 and Major depressive disorder, recurrent episode, moderate 296.32 [facility] [id number] [place] [address] 82193- 8169 February, [facility] [id number] [place] [address] 25074- 2109 Jan, [facility] [id number] [place] [address] 84312- 5893 Jan, [facility] [place] [facility] [address] [id number] [place] [address]- 2465 Dec, [facility] [place] [facility] [address] [id number] [place] [address]- 6[address] Dec, [facility] [place] [facility] [address] [id number] [place] [address] Dec, [facility] [place] [facility] [address] [id number] [place] [address] Dec, [facility] [place] [facility] [address] [id number] [place] [address] Dec, [facility] [place] [facility] [address] [id number] [place] [address] Dec, [facility] [place] [facility] [address] [id number] [place] [address] Nov, [facility] [place] [facility] [address] [id number] [place] [address] Nov, 2014 [facility] [place] [facility] [address] [id number] [place] [address] Nov, [facility] [place] [facility] [address] [facility] [id number] [place] [address] Nov, [facility] [place] [facility] [address] [facility] [id number] [place] [address] Nov, [facility] [place] [facility] [address] [id number] [place] [address] Nov, 2014 [facility] [place] [facility] [address] [id number] [place] [address] Nov, [facility] [place] [facility] [address] [id number] [place] [address] Nov, 2014 [facility] [place] [facility] [address] [address] [id number] [place] [address] Oct, [facility] [place] [facility] [address] [id number] [place] [address] Oct, [facility] [place] [facility] [address] [id number] [place] [address] Oct, [facility] [place] [facility] [address] [id number] [place] [address] Oct, [facility] [place] [facility] [address] [id number] [place] [address] Oct, [facility] [place] [facility] [address] [id number] [place] [address] Oct, [facility] [place] [facility] [address] [id number] [place] [address] Sep, [facility] [place] [facility] [address] [id number] [place] [address] Sep, [facility] [place] [facility] [address] [id number] [place] [address] 95[address] Sep, [facility] [place] [facility] [address] [id number] [place] [address]607 Sep, [facility] [place] [facility] [address] [id number] [place] [address] Sep, [facility] [place] [facility] [address] [facility] [id number] [place] [address] Sep, [facility] [place] [facility] [address] [id number] [place] [address]177 Sep, [facility] [place] [facility] [address] [id number] [place] [address] 1386 Aug, [facility] [place] [facility] [address] [id number] [place] [address] Aug, [facility] [place] [facility] [address] [id number] [place] [address] 0957 Aug, [facility] [place] [facility] [address] [id number] [place] [address] 4780 Aug, [facility] [place] [facility] [address] [id number] [place] [address] 3137 Aug, [facility] [place] [facility] [address] [id number] [place] [address] Aug, [facility] [place] [facility] [address] [id number] [place] [address]- 96[address] Jul, [facility] [place] [facility] [address] [id number] [place] [address]- 2482 Jul, [facility] [place] [facility] [address] [id number] [place] [address] Jul, [facility] [place] [facility] [address] [id number] [place] [address]- 4807 Jul, [facility] [place] [facility] [address] [id number] [place] [address]- 3421 Jul, [facility] [place] [facility] [address] [id number] [place] [address]- 2225 Jul, [facility] [place] [facility] [address] [id number] [place] [address] 3943 Jun, [facility] [place] [facility] [address] [id number] [place] [address]- 1219 Jun, [facility] [place] [facility] [address] [id number] [place] [address]- 5013 May, [facility] [place] [facility] [address] [id number] [place] [address] 6[address] May, [facility] [place] [facility] [address] [id number] [place] [address]39 Apr, [facility] [place] [facility] [address] [id number] [place] [address]- 5427 Apr, [facility] [place] [facility] [address] [id number] [place] [address]- 2540 Apr, [facility] [place] [facility] [address] [id number] [place] [address]- [address]95 Apr, [facility] [place] [facility] [address] [id number] [place] [address]- 7358 Mar, [facility] [place] [facility] [address] [id number] [place] [address] 7702 Mar, [facility] [place] [facility] [address] [id number] [place] [address]- 3723 Mar, [facility] [place] [facility] [address] [id number] [place] [address]- 7888 Mar, [facility] [place] [facility] [address] [id number] [place] [address] 5514 February, [facility] [place] [facility] [address] [id number] [place] [address]79 February, [facility] [place] [facility] [address] [id number] [place] [address] 3874 February, [facility] [place] [facility] [address] [id number] [place] [address] 5[address] February, [facility] [place] [facility] [address] [id number] [place] [address]176 February, [facility] [place] [facility] [address] [id number] [place] [address]38 February, [facility] [place] [facility] [address] [id number] [place] [address] 3747 Jan, [facility] [place] [facility] [address] [id number] [place] [address] 5[address] Jan, [facility] [place] [facility] [address] [id number] [place] [address] 8992 Dec, [facility] [place] [facility] [address] [id number] [place] [address]- 2788 Dec, [facility] [place] [facility] [address] [id number] [place] [address] 4421 Nov, [facility] [place] [facility] [address] [id number] [place] [address]196 Nov, [facility] [address] [id number] [place] [address] Oct, [facility] [address] [id number] [place] [address] 3946 Oct, [facility] [address] [id number] [place] [address] 1896 Oct, [facility] [address] [id number] [place] [address] 9203 Oct, [facility] [address] [id number] [place] [address]- 0979 Sep, [facility] [address] [id number] [place] [address] 8244 Sep, [facility] [address] [id number] [place] [address]- 6572 Sep, [facility] [address] [id number] [place] [address]- 3247 Sep, [facility] [address] [id number] [place] [address]- 8195 Sep, [facility] [address] [facility] [id number] [place] [address]- 3310 Sep, [facility] [address] [id number] [place] [address] 6172 Sep, [facility] [address] [id number] [place] [address]- 7016 Sep, [facility] [address] [id number] [place] [address]- 2296 Aug, [facility] [address] [id number] [place] [address]- 2546 Aug, [facility] [address] [id number] [place] [address] 3876 Aug, [facility] [place] [facility] [address] [id number] [place] [address]- 9118 Aug, [facility] [place] [facility] [address] [id number] [place] [address]- 9262 Aug, [facility] [place] [facility] [address] [id number] [place] [address]- 6399 Aug, [facility] [place] [facility] [address] [id number] [place] [address]- 8181 Aug, [facility] [place] [facility] [address] [id number] [place] [address] Aug, [facility] [place] [facility] [address] [id number] [place] [address]- 6273 Aug, [facility] [place] [facility] [address] [id number] [place] [address]- 7412 Jul, [facility] [place] [facility] [address] [id number], [place] [address]- 2686 Jun, [facility] [place] [facility] [address] [id number] [place] [address]- 2840 May, [facility] [place] [facility] [address] [id number], [place] [address]- 5749 May, [facility] [place] [facility] [address] [id number], [place] [address]- 3265 May, [facility] [place] [facility] [address] [id number], [place] [address]- 5633 Apr, [facility] [place] [facility] [address] [id number], [place] [address]- 9694 Mar, [facility] [place] [facility] [address] [id number], [place] [address]- 8120 February, [facility] [place] [facility] [address] [id number], [place] [address]- 6571 Oct, [facility] [place] [facility] [address] [id number], [place] [address]- [address]376 16 Oct, 2012 [facility] [place] [facility] [address] [id number] [place] [address]- 7460 Oct, [facility] [place] [facility] [address] [facility] [id number], [place] [address]- 2473 Oct, [facility] [place] [facility] [address] [facility] [id number] [place] [address]- 1409 Oct, [facility] [place] [facility] [address] [facility] [id number] [place] [address]- 8506 Oct, [facility] [place] [facility] [address] [facility] [id number] [place] [address], [place] [address]- [address]388 Sep, [facility] [place] [facility] [address] [facility] [id number] [place] [address]- 6176 Sep, [facility] [place] [facility] [id number], [place] [address]- 2856 Aug, [facility] [place] [facility] [address] [facility] [id number] [place] [address]- 6710 Aug, [facility] [place] [facility] [address] [id number] [place] [address]- 1697 Jul, [facility] [place] [facility] [address] [id number] [place] [address]- 9761 Jul, [facility] [place] [facility] [address] [facility] [id number], [place] [address]- 2391 Jul, [facility] [place] [facility] [address] [facility] [id number], [place] [address]- 4559 Jul, [facility] [place] [facility] [address] [id number], [place] [address]- 9262 Jul, [facility] [place] [facility] [address] [facility] [id number], [place] [address]- 5971 Jul, [facility] [place] [facility] [address] [facility] [id number], [place] [address]- 8792 Jul, [facility] [place] [facility] [address] [id number] [place] [address]- 9756 Jul, [facility] [place] [facility] [address] [id number] [place] [address]- 7598 16 Jun, 2012 [facility] [place] [facility] [address] [id number] [place] [address]- 9440 Jun, [facility] [place] [facility] [address] [id number] [place] [address]- 8582 May, [facility] [place] [facility] [address] [id number] [place] [address]- 8913 Apr, [facility] [place] [facility] [address] [id number] [place] [address]- 2493 Mar, [facility] [place] [facility] [address] [id number] [place] [address]- 0045 Mar, [facility] [place] [facility] [address] [id number] [place] [address]- 4291 Mar, [facility] [place] [facility] [address] [id number] [place] [address]- 5361 Mar, [facility] [place] [facility] [address] [id number] [place] [address]- 6650 Jan, [facility] [place] [facility] [address] [id number] [place] [address]- 9827 Nov, [facility] [place] [facility] [address] [id number] [place] [address]- 7122 Nov, [facility] [place] [facility] [address] [id number] [place] [address]- 2892 Nov, [facility] [place] [facility] [address] [id number] [place] [address]- 5408 Oct, [facility] [place] [facility] [address] [id number] [place] [address]- 9951 Sep, [facility] [place] [facility] [address] [id number], [place] [address]- 4866 Sep, [facility] [address] [id number], [place] [address]- 4160 Aug, [facility] [id number], [place] [address]- 4774 Aug, [facility] [id number], [place] [address]- 0938 Aug, [facility] [id number], [place] [address]- 0656 Aug, [facility] [id number], [place] [address]- 0088 Jul, [facility] [id number] [place] [address] 4450 May, [facility] [id number], [place] [address]- 8249 Jan, [facility] [id number], [place] [address]- 6904 Nov, [facility] [id number], [place] [address]- 1201 Apr, [facility] [id number], [place] [address]- 9008 Dec, [facility] [address] [id number], [place] [address]- 7013 Nov, IMMUNIZATIONS No Known Immunizations SOCIAL HISTORY Never Assessed REASON FOR VISIT PFT results - Emery DONG PLAN OF CARE Activity Details Follow Up 3 Months Reason:hyperinsulin VITAL SIGNS Height 67 in 2017-04-14 Weight 198.2 lbs 2017-04-14 Temperature 98.4 degrees Fahrenheit 2017-04-14 Heart Rate 82 bpm 2017-04-14 Respiratory Rate 22 2017-04-14 Oximetry 98 % 2017-04-14 BMI 31.04 kg/m2 2017-04-14 Blood pressure systolic 134 mmHg 2017-04-14 Blood pressure diastolic 86 mmHg 2017-04-14 MEDICATIONS Medication Instructions Dosage Frequency Start Date End Date Duration Status Gabapentin 600 MG Orally 2 times a day 1 capsule 12h 07 Nov, 2016 30 day(s) Active Tramadol HCl 50 mg Orally 4 times a day PRN PAIN 1-2 tablets Active Metoprolol Tartrate 25 MG Orally Twice a day 1 tablet with food 12h Active Trulicity 1.5 MG/0.5ML Subcutaneous once weekly INJECT 0.5 MLS SUBCUTANEOUSLY ONCE A WEEK 28 Active Advair Diskus 100-50 MCG/DOSE Inhalation Twice a day 1 puff 12h Jul, Active Oxygen as directed Jan, Apr, Active Albuterol Sulfate (2.5 MG/3ML) 0.083% Inhalation every 4 hours 3 ml as needed for cough or wheeze 4h 13 Jul, 2014 90 days Active Xeljanz 5 mg 1 Tablet by Oral route 2 times per day Dec, Active ProAir HFA 108 (90 Base) MCG/ACT INHALE TWO PUFFS BY MOUTH FOUR TIMES PER DAY NEEDED FOR SHORTNESS OF BREATH 25 Active Omeprazole 40 MG Orally Once a day 1 capsule 24h 90 Active Zofran 4 MG Orally 3 times a day 1 tablet 8h May, 07 days Active Zetia 10 MG Orally Once a day 1 tablet 24h Active Effexor XR 150 MG Orally 2 times a day 1 capsule with food 12h 30 Active Cyclobenzaprine HCl 10 MG Orally 2 times a day 1 tablet as needed 12h Jul, Active Morphine Sulfate 15 mg Orally Once a day PRN PAIN .5 tablet February, Active RESULTS No Results PROCEDURES Procedure Date Ordered Result Body Site MEASURE BLOOD OXYGEN LEVEL April 14, 2017 [facility] VISIT ESTABLISHED PATIENT April 14, 2017 [facility] Visit needs to be added with another visit on the same day April 14, 2017 INSTRUCTIONS MEDICATIONS ADMINISTERED No Known Medications MEDICAL (GENERAL) HISTORY Type Description Date Medical History Cardiovascular dodzfaxt-ESJ-Cdprnnuw, 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 Mendoza Medical History Stress test 03/07/13-Dr. 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
--- OUTSIDE RECORDS SUMMARY | 2018-06-12 16:27 | XMS REPORT ---
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 Name Role Phone LORI SNOWDEN Unavailable PROBLEMS Type Condition ICD9-CM Code [id number] Code Onset Dates Condition Status SNOMED Code Problem Chronic obstructive pulmonary disease, unspecified J44.9 Active 58905194588915486 Problem Other snf (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 Active 779538443 Problem Obstructive sleep apnea G47.33 Active 30089122 Problem Anxiety F41.9 Active 34286449 Problem ADHD (attention deficit hyperactivity disorder), combined type F90.2 Active 56264085 Problem Gastroesophageal reflux disease with esophagitis K21.0 Active 118703176 Problem Generalized anxiety disorder F41.1 Active 10914002 Problem Sleep apnea in adult G47.30 Active 56735582 Problem Cerebrovascular accident (CVA), unspecified mechanism I63.9 Active 216642365 Problem Rheumatoid arthritis involving multiple sites, unspecified rheumatoid factor presence M06.9 Active 556820756 Problem Dysthymic disorder F34.1 Active 79984028 Problem Chronic pain syndrome G89.4 Active 066449628 Problem Asthma J45.909 Active 655733364 Problem Weight gain R63.5 Active 5210505 Problem Rheumatoid arthritis M06.9 Active 06927200 Problem Arteriosclerotic coronary artery disease I25.10 Active 09590242 Problem Hyperinsulinemia E16.1 Active 62780727 Problem Hypertension I10 Active 42003293 Problem Neuropathy G62.9 Active 932272521 Problem Mixed hyperlipidemia E78.2 Active 308413928 Problem Other insomnia G47.09 Active [id number] ALLERGIES No Information ENCOUNTERS Encounter Location Date Diagnosis [facility] [address] [facility] [id number] [address] Jan, [facility] [id number] [place] [address] 12686- 9855 Dec, [facility] [id number] [place] [address] 37615- 5223 Dec, [facility] [id number] [place] [address] 05265- 3073 Dec, [facility] [id number] [place] [address] 783530- 9303 Nov, Dysthymic disorder F34.1 [facility] [id number] [place] [address] 84353- 4857 Oct, [facility] [id number] [place] [address] 678351- 2467 Oct, [facility] [id number] [place] [address] 33808- 1731 Oct, [facility] [id number] [place] [address] 12875- 8410 Oct, Diarrhea, unspecified type R19.7 and Dysuria R30.0 [facility] [id number] [place] [address] 00734- 7145 Oct, [facility] [id number] [place] [address] 64307- 7875 Sep, [facility] [id number] [place] [address] 25601- 4104 Sep, [facility] [id number] [place] [address] 819681- 1247 Sep, Anxiety F41.9 [facility] [id number] [place] [address] 38766- 6979 Sep, Cerebrovascular accident (CVA), unspecified mechanism I63.9 ; Mixed hyperlipidemia E78.2 ; Gastroesophageal reflux disease with esophagitis K21.0 and Anxiety F41.9 [facility] [id number] [place] [address] 21508- 6796 Sep, [place] [id number] [place] [address] 23100- 2971 Aug, Chronic obstructive pulmonary disease, unspecified J44.9 ; Asthma J45.909 ; Nausea R11.0 ; Dysthymic disorder F34.1 ; Cerebrovascular accident (CVA), unspecified mechanism I63.9 and Rheumatoid arthritis M06.9 [place] [address] 16294- 3893 Aug, Nausea R11.0 ; Encounter for immunization Z23 ; Sleep apnea in adult G47.30 ; Rheumatoid arthritis involving multiple sites, unspecified rheumatoid factor presence M06.9 ; Generalized anxiety disorder F41.1 ; Dysthymic disorder F34.1 and Asthma J45.909 [place] [address] 53988- 3109 Jul, [address] 07271- 2893 May, ADHD (attention deficit hyperactivity disorder), combined type F90.2 ; Generalized anxiety disorder F41.1 and Persistent depressive disorder F34.1 [place] [address] 09712- 0718 May, Cerebrovascular accident (CVA), unspecified mechanism I63.9 [place] [address] 93450- 7163 Apr, Mixed hyperlipidemia E78.2 and Cerebrovascular accident (CVA ), unspecified mechanism I63.9 [place] [id number] [place] [address] 76199- 2678 Apr, Generalized anxiety disorder F41.1 [place] [address] 43313- 3537 Apr, Bronchitis J40 and Tobacco use Z72.0 [place] [address] 92388- 6835 Apr, Mixed hyperlipidemia E78.2 [place] [address] [place] [address]- 4002 Apr, 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 [place] [id number] [place] [address] 78006- 4452 Apr, [facility] [id number] [place] [address] 33806- 3542 Apr, Generalized anxiety disorder F41.1 [place] [address] 84235- 8951 Apr, Obstructive sleep apnea G47.33 and Hyperinsulinemia E16.1 [place] [address] 47466- 0645 Apr, ADHD (attention deficit hyperactivity disorder), combined type F90.2 ; Generalized anxiety disorder F41.1 and Persistent depressive disorder F34.1 [place] [id number] [place] [address] 23870- 2016 Mar, [place] [id number] [place] [address] 15705- 0450 Mar, Generalized anxiety disorder F41.1 [place] [id number] [place] [address] 50262- 2021 Mar, Tarsal tunnel syndrome of both lower extremities G57.53 [place] [id number] [place] [address] 58642- 2798 February, [place] [address] [id number] [place] [address] 47186- 7078 February, [facility] [id number] [place] [address] 96035- 7720 February, Asthma J45.909 [place] [id number] [place] [address] 33661- 7503 February, Generalized anxiety disorder F41.1 [facility] [id number] [place] [address] 36035- 6381 17 May, 2017 Hypoxemia R09.02 ; Hyperglycemia R73.9 ; Rheumatoid arthritis M06.9 and Generalized anxiety disorder F41.1 [place] [id number] [place] [address] 80897- 2862 February, [place] [address] 46123- 7214 Jan, Chronic obstructive pulmonary disease, unspecified J44.9 [place] [address] 05122- 8639 Jan, Chronic pain syndrome G89.4 [place] [address] 59546- 2020 Jan, Hypoxemia R09.02 [place] [address] 67672- 7907 Jan, [place] [address] 01203- 9647 Jan, Chronic obstructive pulmonary disease, unspecified J44.9 ; Hypoxemia R09.02 ; Other insomnia G47.09 and Left anterior shoulder pain M25.512 [place] [address] 28159- 1203 Jan, Numbness in feet R20.0 and Neuropathy G62.9 [place] [id number] [place] [address] 26327- 6807 Jan, [place] [address] 13527- 3776 Dec, Acute pain of left shoulder M25.512 [place] [id number] [place] [address] 15046- 6607 Dec, Acute pain of left shoulder M25.512 [place] [address] 76820- 5462 Dec, Generalized anxiety disorder F41.1 [place] [address] 61291- 8703 Dec, Generalized anxiety disorder F41.1 [facility] [id number] [place] [address] 68952- 9922 Nov, ADHD (attention deficit hyperactivity disorder), combined type F90.2 ; Generalized anxiety disorder F41.1 and Persistent depressive disorder F34.1 [facility] [id number] [place] [address] 27839- 2525 Nov, Acute pain of left shoulder M25.512 [facility] [id number] [place] [address] 50996- 8280 Nov, ADHD (attention deficit hyperactivity disorder), combined type F90.2 ; Generalized anxiety disorder F41.1 and Persistent depressive disorder F34.1 [facility] [id number] [place] [address] 04622- 8959 Nov, Chronic pain syndrome G89.4 [facility] [id number] [place] [address] 68038- 7669 Nov, Chronic pain syndrome G89.4 [facility] [id number] [place] [address] 33709- 4037 Nov, Acute pain of left shoulder M25.512 [facility] [id number] [place] [address] 99156- 1437 Nov, Generalized anxiety disorder F41.1 [facility] [id number] [place] [address] 66603- 6376 Nov, Acute pain of left shoulder M25.512 [facility] [id number] [place] [address] 18287- 4526 Nov, ADHD (attention deficit hyperactivity disorder), combined type F90.2 ; Generalized anxiety disorder F41.1 and Persistent depressive disorder F34.1 [facility] [address] [address]- 5446 Nov, Acute pain of left shoulder M25.512 ; Generalized anxiety disorder F41.1 ; Chronic pain syndrome G89.4 ; Hyperinsulinemia E16.1 ; Pain of left foot M79.672 and Pain in right foot M79.671 [place] [id number] [place] [address] 96126- 4493 Oct, ADHD (attention deficit hyperactivity disorder), combined type F90.2 ; Generalized anxiety disorder F41.1 and Dysthymic disorder F34.1 [place] [id number] [place] [address] 33026- 9504 Sep, [place] [id number] [place] [address] 93189- 1277 Sep, [place] [id number] [place] [address] 78111- 4866 Sep, Routine gynecological examination V72.31 ; Cervical cancer screening Z12.4 ; Breast cancer screening Z12.39 ; Colon cancer screening Z12.11 ; Hypokalemia E87.6 ; Herpes simplex type 1 infection B00.9 and Abscess of right axilla L02.411 [place] [address] [id number] [place] [address] 73286- 2673 Sep, [place] [id number] [place] [address] 62907- 0654 Sep, ADHD (attention deficit hyperactivity disorder), combined type F90.2 ; Generalized anxiety disorder F41.1 and Dysthymic disorder F34.1 [place] [id number] [place] [address] 31532- 1493 Aug, [place] [id number] [place] [address] 95422- 8068 Aug, [place] [id number] [place] [address] 98955- 2599 Aug, Generalized anxiety disorder F41.1 [place] [id number] [place] [address] 96260- 3460 Aug, ADHD (attention deficit hyperactivity disorder), combined type F90.2 ; Generalized anxiety disorder F41.1 and Dysthymic disorder F34.1 [place] [id number] [place] [address] 41974- 3142 Jul, Chronic pain syndrome G89.4 ; Hypertension I10 ; Hypokalemia E87.6 ; Asthma J45.909 and Nausea R11.0 [place] [id number] [place] [address] 65450- 9004 Jul, [place] [address] 79744- 0854 Jul, Asthma J45.909 [place] [address] 80933- 2225 Jul, ADHD (attention deficit hyperactivity disorder), combined type F90.2 ; Generalized anxiety disorder F41.1 and Dysthymic disorder F34.1 [place] [address] 19991- 3996 Jul, [place] [address] 32067- 6089 Jul, Hypertension I10 ; Arteriosclerotic coronary artery disease I25.10 ; Mixed hyperlipidemia E78.2 ; 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 and Hyperglycemia R73.9 [place] [id number] [place] [address] 01928- 3436 16 Jun, 2016 Hypokalemia E87.6 and Hyperglycemia R73.9 [place] [address] [id number] [place] [address] 10953- 3335 14 Jun, 2016 [place] [address] [id number] [place] [address] 83164- 2245 13 Jun, 2016 Abnormal kidney function N28.9 [place] [address] [id number] [place] [address] 37512- 5962 09 Jun, 2016 [place] [address] [id number] [place] [address] 35047- 5772 Jun, ADHD (attention deficit hyperactivity disorder), combined type F90.2 ; Generalized anxiety disorder F41.1 and Dysthymic disorder F34.1 [place] [address] 34096- 0464 Jun, Generalized anxiety disorder F41.1 and Dysthymic disorder F34.1 [place] [address] 783932- 9960 Jun, Hypokalemia E87.6 [place] [address] 43048- 9465 May, Hypokalemia E87.6 ; Vertigo R42 and Hyperinsulinemia E16.1 [place] [address] 13025- 8539 May, [place] [address] 67399- 9754 May, Abnormal kidney function N28.9 ; Hyperinsulinemia E16.1 and Nausea R11.0 [place] [address] 26685- 0501 May, Hypokalemia E87.6 ; Nausea R11.0 ; Epigastric pain R10.13 ; Dehydration E86.0 ; Diaphoresis R61 and Right arm pain M79.601 [place] [address] 94081- 5910 May, [place] [address] 95716- 6744 May, Hypokalemia E87.6 [place] [address] 93227- 2316 May, Hypokalemia E87.6 [place] [address] 30214- 5783 Apr, [place] [address] 71594- 3682 Apr, ADHD (attention deficit hyperactivity disorder), combined type F90.2 ; Generalized anxiety disorder F41.1 and Dysthymic disorder F34.1 [place] [id number] [place] [address] 93976- 2623 Apr, Right arm pain M79.601 and Hyperinsulinemia E16.1 [place] [address] [id number] [place] [address] 16485- 1366 Mar, [place] [id number] [place] [address] 15342- 5063 Mar, [place] [address] [place] [id number] [place] [address] 32451- 2457 Mar, Hyperinsulinemia E16.1 ; Hyperlipidemia, unspecified hyperlipidemia type E78.5 ; Central venous catheter in place Z78.9 ; Generalized anxiety disorder F41.1 and Urinary tract infection, site not specified N39.0 [place] [address] [id number] [place] [address] 23619- 7184 Mar, ADHD (attention deficit hyperactivity disorder), combined type F90.2 ; Generalized anxiety disorder F41.1 and Dysthymic disorder F34.1 [place] [address] [id number] [place] [address] 18036- 7699 February, ADHD (attention deficit hyperactivity disorder), combined type F90.2 ; Generalized anxiety disorder F41.1 and Dysthymic disorder F34.1 [place] [address] [place] [address] 87946- 1702 February, [place] [address] [id number] [place] [address] 42599- 8276 February, [place] [address] [id number] [place] [address] 35956- 0955 February, Hypertension I10 and Weight gain R63.5 [place] [address] [id number] [place] [address] 39100- 1378 February, Major depressive disorder, recurrent, moderate F33.1 and Generalized anxiety disorder F41.1 [place] [address] [address]- 5010 February, ADHD (attention deficit hyperactivity disorder), combined type F90.2 ; Generalized anxiety disorder F41.1 and Dysthymic disorder F34.1 [facility] [address] [place] [address] 63972- 5773 February, [facility] [address] [id number] [place] [address] 57884- 7064 February, Asthma J45.909 ; Weight gain R63.5 ; Hypertension I10 ; Rheumatoid arthritis M06.9 and Chronic pain syndrome G89.4 [place] [address] [id number] [place] [address] 24409- 1444 Jan, ADHD (attention deficit hyperactivity disorder), combined type F90.2 ; Generalized anxiety disorder F41.1 and Dysthymic disorder F34.1 [facility] [id number] [place] [address] 36702- 9850 Dec, ADHD (attention deficit hyperactivity disorder), combined type F90.2 ; Generalized anxiety disorder F41.1 and Dysthymic disorder F34.1 [place] [address] [id number] [place] [address] 35874- 2131 Dec, [facility] [id number] [place] [address] 80308- 3960 Nov, [facility] [address] [address]- 9194 Nov, [facility] [address] [address]- 4126 Nov, [facility] [id number] [place] [address] 89353- 8788 Nov, [facility] [address] [address]- 3490 Oct, [facility] [id number] [place] [address] 95454- 6996 Oct, [facility] [address] [address]- 1757 Oct, [facility] [address], [place] [address]- 0359 Sep, [facility] [address] [address]- 0060 Sep, [facility] [id number] [place] [address] 54083- 7695 Sep, Agoraphobia with panic disorder F40.01 ; Attention-deficit hyperactivity disorder, combined type F90.2 and Dysthymic disorder F34.1 [facility] [id number] [place] [address] 87474- 9821 Aug, [facility] [id number] [address]- 9493 Aug, [facility] [id number] [place] [address] 53017- 9625 Aug, [facility] [id number] [place] [address] 97367- 5853 Aug, Dysthymic disorder F34.1 ; Generalized anxiety disorder F41.1 and ADHD (attention deficit hyperactivity disorder), combined type F90.2 [facility] [address], [place] [address]- 4181 Aug, ADHD (attention deficit hyperactivity disorder), combined type F90.2 ; Generalized anxiety disorder F41.1 and Dysthymic disorder F34.1 [facility] [address], [place] [address]- 2232 Jul, Urinary tract infection, site not specified N39.0 ; Hypotension, unspecified I95.9 and Breast cancer screening Z12.39 [facility] [address] [address]- 5017 Jul, [facility] [id number] [place] [address] 47017- 1467 Jul, [facility] [address] [place] [address] 95786- 2186 Jul, Urinary tract infection, site not specified N39.0 ; Nausea R11.0 ; Gastroenteritis K52.9 ; Renal failure N19 and Other hypotension I95.89 [facility] [id number] [place] [address] 43439- 2052 Jul, [facility] [id number] [place] [address] 19826- 7097 Jul, [facility] [id number] [place] [address] 81774- 2633 Jul, [facility] [id number] [place] [address] 43602- 7877 Jun, [place] [id number] [place] [address] 61531- 1877 Jun, Major depression in partial remission 296.25 ; Generalized anxiety disorder 300.02 and ADHD, predominantly inattentive type 314.01 [place] [id number] [place] [address] 93312- 0905 May, [place] [id number] [place] [address] 72479- 2823 Apr, Major depressive disorder, recurrent episode, severe, without mention of psychotic behavior 296.33 ; Agoraphobia with panic disorder 300.21 and Generalized anxiety disorder 300.02 [place] [id number] [place] [address] 00014- 9745 Apr, ADHD (attention deficit hyperactivity disorder), combined type 314.01 ; Generalized anxiety disorder 300.02 and Dysthymic disorder 300.4 [place] [id number] [place] [address] 08317- 3346 Apr, CAD (coronary artery disease) 414.00 ; HTN (hypertension) 401.9 and Tobacco use 305.1 [place] [id number] [place] [address] 92626- 0307 Apr, [facility] [id number] [place] [address] 09364- 0074 Mar, ADHD (attention deficit hyperactivity disorder), combined type 314.01 ; Generalized anxiety disorder 300.02 ; Dysthymic disorder 300.4 ; No condition on [place] II V71.09 ; Rheumatoid arthritis 714.0 ; Incontinence 788.30 ; Irritable bowel syndrome 564.1 ; Osteoporosis 733.00 and Chronic pain 338.29 [facility] [id number] [place] [address] 39559- 3392 Mar, Agoraphobia with panic disorder 300.21 and Major depressive disorder, recurrent episode, moderate 296.32 [facility] [id number] [place] [address] 60273- 9174 Mar, [facility] [id number] [place] [address] 44247- 7904 February, [facility] [id number] [place] [address] 29770- 8410 February, Agoraphobia with panic disorder 300.21 and Major depressive disorder, recurrent episode, moderate 296.32 [facility] [id number] [place] [address] 38832- 3755 February, [facility] [id number] [place] [address] 82366- 3506 Jan, [facility] [id number] [place] [address] 95467- 2337 Jan, [facility] [id number] [place] [address] 59092- 3980 Dec, [facility] [address] 44573- 3068 Dec, [facility] [id number] [place] [address] 75078- 0263 Dec, [facility] [address] 52207- 2876 Dec, [facility] [place] [facility] [address] [id number] [place] [address] Dec, [facility] [place] [facility] [address] [id number] [place] [address] Dec, [facility] [place] [facility] [address] [facility] [id number] [place] [address] Nov, 2014 [facility] [place] [facility] [address] [id number] [place] [address] Nov, 2014 [facility] [place] [facility] [address] [id number] [place] [address] Nov, 2014 [facility] [place] [facility] [address] [id number] [place] [address] Nov, 2014 [facility] [place] [facility] [address] [facility] [id number] [place] [address] Nov, [facility] [place] [facility] [address] [id number] [place] [address] Nov, [facility] [place] [facility] [address] [id number] [place] [address] Nov, [facility] [place] [facility] [address] [facility] [id number] [place] [address] Nov, [facility] [place] [facility] [address] [facility] [id number] [place] [address] Oct, [facility] [place] [facility] [address] [id number] [place] [address] Oct, [facility] [place] [facility] [address] [id number] [place] [address] Oct, [facility] [place] [facility] [address] [facility] [id number] [place] [address] Oct, [facility] [place] [facility] [address] [facility] [id number] [address] Oct, [facility] [place] [facility] [address] [id number] [place] [address] 44[address] Oct, [facility] [place] [facility] [address] [id number] [place] [address] Sep, [facility] [place] [facility] [address] [id number] [place] [address] Sep, [facility] [place] [facility] [address] [id number] [place] [address]- [address] Sep, [facility] [place] [facility] [address] [id number] [place] [address] 8315 Sep, [facility] [place] [facility] [address] [id number] [place] [address] 7253 Sep, [facility] [place] [facility] [address] [id number] [place] [address] Sep, [facility] [place] [facility] [address] [id number] [place] [address]- 5[address] Sep, [facility] [place] [facility] [address] [id number] [place] [address] 59[address] Aug, [facility] [place] [facility] [address] [id number] [place] [address] 7736 Aug, [facility] [place] [facility] [address] [id number] [place] [address]- 8434 Aug, [facility] [place] [facility] [address] [id number] [place] [address]- 270[address] Aug, [facility] [place] [facility] [address] [id number] [place] [address] 8651 Aug, [facility] [place] [facility] [address] [id number] [place] [address] 6441 Aug, [facility] [place] [facility] [address] [id number] [place] [address] 17 Jul, 2014 [facility] [place] [facility] [address] [id number] [place] [address]- [address] Jul, [facility] [place] [facility] [address] [id number] [place] [address]- 1012 Jul, [facility] [place] [facility] [address] [id number] [place] [address]- 6096 Jul, [facility] [place] [facility] [address] [id number] [place] [address] Jul, [facility] [place] [facility] [address] [id number] [place] [address] 6[address] Jul, [facility] [place] [facility] [address] [id number] [place] [address]- 1074 Jun, [facility] [place] [facility] [address] [id number] [place] [address]- 7749 Jun, [facility] [place] [facility] [address] [id number] [place] [address] 8890 May, [facility] [place] [facility] [address] [id number] [place] [address]- 69[address] May, [facility] [place] [facility] [address] [id number] [place] [address]- 9868 Apr, [facility] [place] [facility] [address] [id number] [place] [address]- 1856 Apr, [facility] [place] [facility] [address] [id number] [place] [address]- 1739 Apr, [facility] [place] [facility] [address] [id number], [place] [address] Apr, [facility] [place] [facility] [address] [id number] [place] [address]65 Mar, [facility] [place] [facility] [address] [id number] [place] [address]- 7939 Mar, [facility] [place] [facility] [address] [id number] [place] [address]- 1530 Mar, [facility] [place] [facility] [address] [id number] [place] [address] 6[address] Mar, [facility] [address] [id number] [place] [address] 12[address] February, [facility] [address] [id number] [place] [address] February, [facility] [address] [id number] [place] [address] 36[address] February, [facility] [address] [id number] [place] [address]- 4385 February, [facility] [address] [id number] [place] [address]379 February, [facility] [address] [id number] [place] [address]- 1283 February, [facility] [address] [id number] [place] [address] 92[address] Jan, [facility] [address] [id number] [place] [address] 6137 Jan, [facility] [address] [id number] [place] [address]- 5579 Dec, [facility] [address] [id number] [place] [address]- 1834 Dec, [facility] [place] [facility] [address] [id number] [place] [address]- 9230 Nov, [facility] [place] [facility] [address] [id number] [place] [address]- 2941 Nov, [facility] [place] [facility] [address] [id number] [place] [address]- 6241 Oct, [facility] [place] [facility] [address] [id number] [place] [address] 2336 Oct, [facility] [place] [facility] [address] [id number] [place] [address]- 9992 Oct, [facility] [address] [id number] [place] [address]- 8049 Oct, [facility] [place] [facility] [address] [id number] [place] [address]- 5534 Sep, [facility] [place] [facility] [address] [id number] [place] [address]- 8702 Sep, [facility] [place] [facility] [address] [id number] [place] [address]- 4087 Sep, [facility] [place] [facility] [address] [id number] [place] [address]- 4800 Sep, [facility] [place] [facility] [address] [id number] [place] [address]- 8656 Sep, [facility] [place] [facility] [address] [id number] [place] [address]- 9889 Sep, [facility] [place] [facility] [address] [id number] [place] [address]- 6868 Sep, [facility] [place] [facility] [address] [id number] [place] [address]- 1032 Sep, [facility] [place] [facility] [address] [id number] [place] [address]- 3147 Aug, [facility] [place] [facility] [address] [id number] [place] [address]- 1275 Aug, [facility] [place] [facility] [address] [id number], [place] [address]- [address]21 Aug, [facility] [place] [facility] [address] [id number] [place] [address]- 5798 Aug, [facility] [place] [facility] [address] [id number] [place] [address]- 5386 Aug, [facility] [place] [facility] [address] [id number], [place] [address]- 1618 Aug, [facility] [place] [facility] [address] [id number] [place] [address] 2541 Aug, [facility] [address] [id number] [place] [address]- 0153 Aug, [facility] [place] [facility] [address] [id number] [place] [address]- 0752 Aug, [facility] [address] [id number] [place] [address] 2545 Jul, [facility] [place] [facility] [address] [id number] [place] [address]- 5979 Jun, [facility] [address] [id number] [place] [address]- 7336 May, [facility] [place] [facility] [address] [id number] [place] [address]- 3191 May, [facility] [address] [id number] [place] [address]- 0509 May, [facility] [address] [id number] [place] [address]- 8575 Apr, [facility] [address] [id number] [place] [address]- 6694 Mar, [facility] [address] [id number] [place] [address]- 4906 February, [facility] [address] [id number] [place] [address]- 1419 Oct, [facility] [place] [facility] [address] [id number], [place] [address]- 5876 Oct, [facility] [place] [facility] [address] [id number] [place] [address]- 8255 Oct, [facility] [place] [facility] [address] [id number] [place] [address]- 9434 Oct, [facility] [place] [facility] [address] [id number], [place] [address]- 8908 Oct, [facility] [place] [facility] [address] [id number] [place] [address]- 8575 Oct, [facility] [place] [facility] [address] [id number] [place] [address]- 2646 Sep, [facility] [place] [facility] [address] [id number] [place] [address]- 8936 Sep, [facility] [place] [facility] [address] [id number] [place] [address]- 9792 Aug, [facility] [place] [facility] [address] [id number] [place] [address]- 5744 Aug, [facility] [place] [facility] [address] [id number] [place] [address] Jul, [facility] [place] [facility] [address] [id number] [place] [address] Jul, [facility] [place] [facility] [address] [id number] [place] [address]- 9203 Jul, [facility] [place] [facility] [address] [id number] [place] [address]- 5147 Jul, [facility] [place] [facility] [address] [id number] [place] [address]- 8849 Jul, [facility] [place] [facility] [address] [id number] [place] [address]- 9346 Jul, [facility] [place] [facility] [address] [id number] [place] [address]- 7315 Jul, [facility] [place] [facility] [address] [id number] [place] [address]- 3188 Jul, [facility] [place] [facility] [address] [id number] [place] [address]- 1096 16 Jun, 2012 [facility] [place] [facility] [address] [id number] [place] [address]- 5626 03 Jun, 2012 [facility] [place] [facility] [address] [id number] [place] [address]- 2988 May, [facility] [place] [facility] [address] [id number] [place] [address]- 4714 Apr, [facility] [place] [facility] [address] [id number] [place] [address]- 9050 Mar, [facility] [place] [facility] [address] [id number] [place] [address]- 1364 Mar, [facility] [place] [facility] [address] [id number] [place] [address]- 2170 Mar, [facility] [place] [facility] [address] [id number] [place] [address]- 9197 Mar, [facility] [place] [facility] [address] [id number] [place] [address]- 3673 Jan, [facility] [place] [facility] [address] [id number] [place] [address]- 7560 Nov, [facility] [place] [facility] [address] [id number] [place] [address]- 1356 Nov, [facility] [place] [facility] [address] [id number] [place] [address]- 7545 Nov, [facility] [place] [facility] [address] [id number] [place] [address]- 1947 Oct, [facility] [place] [facility] [address] [id number] [place] [address]- 5077 Sep, [facility] [place] [facility] [address] [id number] [place] [address]- 5754 Sep, [facility] [place] [facility] [address] [id number] [place] [address]- 3572 Aug, [facility] [place] [facility] [address] [id number] [place] [address]- 4564 Aug, [facility] [place] [facility] [address] [id number] [place] [address]- 1997 Aug, [facility] [place] [facility] [id number], [place] [address] 2546 Aug, [facility] [id number], [place] [address]- 2436 Jul, [facility] [id number], [place] [address] 2546 May, [facility] [id number], [place] [address]- 4103 Jan, [facility] [id number] [place] [address]- 4776 Nov, [facility] [id number] [place] [address]- 8166 Apr, [facility] [id number], [place] [address]- 6256 Dec, [facility] [id number], [place] [address]- 4776 Nov, IMMUNIZATIONS No Known Immunizations SOCIAL HISTORY Never Assessed REASON FOR VISIT Rx requests PLAN OF CARE VITAL SIGNS MEDICATIONS Medication Instructions Dosage Frequency Start Date End Date Duration Status Aspirin 325 MG Orally Once a day 1 tablet 24h Apr, 30 days Active Lipitor 80 MG Orally Once a day 1 tablet 24h Apr, 30 days Active RESULTS No Results PROCEDURES No Known procedures INSTRUCTIONS MEDICATIONS ADMINISTERED No Known Medications MEDICAL (GENERAL) HISTORY Type Description Date Medical History Cardiovascular rkalehls-NIJ-Bdidyucm, 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 Mendoza Medical History Stress test 03/07/13-Dr. Kelly Dietrich normal Medical History Hypertension Medical History Asthma Medical History Gastrointestinal Disorder--IBS, GERD, Hx of fatty liver Medical History Hernia 1979 Medical History Cervical dysplasia 02/16-Pap LGSIL/Eminence-mild dysplasia Medical History Hyperlipidemia Medical History Rheumatoid [...] Hypokalemia/Nause-Via [facility] 05/13/16 Hospitalization History Stroke 05/03/2017 Hospitalization History stroke 08/24/2017--09/01/2017
--- OUTSIDE RECORDS SUMMARY | 2018-06-12 16:36 | XMS REPORT | Continuity of Care Document ---
Author Author [facility] Address Unknown Phone Unavailable Allergies Active Description [...] PAPER TAPE Unknown BLISTERS/SORES 07/10/2015 Yes doxycycline [id number] Drug Allergy Moderate FACIAL SWELLING 03/29/2017 Yes fluticasone furoate [id number] Drug Allergy Moderate N/V 03/29/2017 Yes hydrocodone [id number] Drug Allergy Moderate DYSPNEA, HIVES 03/29/2017 Yes Iodinated Contrast- Oral and IV Dye [id number] Drug Allergy Moderate N/A Yes paroxetine [id number] Drug Allergy Moderate N/A 03/29/2017 Yes vilanterol [id number] Drug Allergy Moderate N/V 03/29/2017 Yes methylprednisolone [id number] Drug Allergy Mild flushing and sk 03/29 Yes oxybutynin [id number] Drug Allergy Mild sores in mouth 03/29/2017 Yes codeine [id number] Drug Allergy Unknown HIVES 03/29/2017 Medications There [...] DO CORTEZ K 300.00 anxiety 11/22/2008 CARREON DO CORTEZ K 703.0 Ingrowing Nail With Infection 11/22/2008 CARREON DOBERTA K 703.9 Dermatology Non-infectious Nails 11/22/2008 CARREON DO CORTEZ K 704.8 Folliculitis 11/22/2008 CARREON DO CORTEZ K 714.0 RHEUMATOID ARTHRITIS 11/22/2008 CARREON DO CORTEZ K 785.6 Swollen Glands In The Neck 11/22/2008 CARRENO DO CORTEZ K V25.09 Health Seminar On [...] V25.09 Health Seminar On Care 11/22/2008 IVÁN SCROLL SHEAR OPERATOR, TEQUILA 300.00 anxiety 11/22/2008 IVÁN SCROLL SHEAR OPERATOR, TEQUILA 703.0 Ingrowing Nail With Infection 11/22/2008 IVÁN SCROLL SHEAR OPERATOR, TEQUILA 703.9 Dermatology Non-infectious Nails 11/22/2008 IVÁN SCROLL SHEAR OPERATOR, TEQUILA 704.8 Folliculitis 11/22/2008 IVÁN SCROLL SHEAR OPERATOR, TEQUILA 714.0 RHEUMATOID ARTHRITIS 11/22/2008 IVÁN SCROLL SHEAR OPERATOR, TEQUILA 785.6 Swollen Glands In The Neck 11/22/2008 IVÁN SCROLL SHEAR OPERATOR, TEQUILA V25.09 Health Seminar On Care 11/22/2008 IVÁN SCROLL SHEAR OPERATOR, TEQUILA 300.00 anxiety 11/22/2008 IVÁN SCROLL SHEAR OPERATOR, TEQUILA 703.0 Ingrowing Nail With Infection 11/22/2008 IVÁN SCROLL SHEAR OPERATOR, TEQUILA 703.9 Dermatology Non-infectious Nails 11/22/2008 IVÁN SCROLL SHEAR OPERATOR, TEQUILA 704.8 Folliculitis 11/22/2008 IVÁN SCROLL SHEAR OPERATOR, TEQUILA 714.0 RHEUMATOID ARTHRITIS 11/22/2008 IVÁN SCROLL SHEAR OPERATOR, TEQUILA 785.6 Swollen Glands In The Neck 11/22/2008 IVÁN SCROLL SHEAR OPERATOR TEQUILA V25.09 Health Seminar On Care 11/22/2008 IVÁN SCROLL SHEAR OPERATOR, TEQUILA 300.00 anxiety 11/22/2008 IVÁN SCROLL SHEAR OPERATOR, TEQUILA 703.0 Ingrowing Nail With Infection 11/22/2008 IVÁN SCROLL SHEAR OPERATOR, TEQUILA 703.9 Dermatology Non-infectious Nails 11/22/2008 IVÁN SCROLL SHEAR OPERATOR, TEQUILA 704.8 Folliculitis 11/22/2008 IVÁN SCROLL SHEAR OPERATOR, TEQUILA 714.0 RHEUMATOID ARTHRITIS 11/22/2008 IVÁN SCROLL SHEAR OPERATOR, TEQUILA 785.6 Swollen Glands In The Neck 11/22/2008 IVÁN SCROLL SHEAR OPERATOR, TEQUILA V25.09 Health Seminar On Care 11/22/2008 IVÁN SCROLL SHEAR OPERATOR, TEQUILA 300.00 anxiety 11/22/2008 IVÁN SCROLL SHEAR OPERATOR, TEQUILA 703.0 Ingrowing Nail With Infection 11/22/2008 IVÁN SCROLL SHEAR OPERATOR, TEQUILA 703.9 Dermatology Non-infectious Nails 11/22/2008 IVÁN SCROLL SHEAR OPERATOR, TEQUILA 704.8 Folliculitis 11/22/2008 IVÁN SCROLL SHEAR OPERATOR, TEQUILA 714.0 RHEUMATOID ARTHRITIS 11/22/2008 IVÁN SCROLL SHEAR OPERATOR, TEQUILA 785.6 Swollen Glands In The Neck 11/22/2008 IVÁN SCROLL SHEAR OPERATOR, TEQUILA V25.09 Health Seminar On Care 11/22/2008 IVÁN SCROLL SHEAR OPERATOR, TEQUILA 300.00 anxiety 11/22/2008 IVÁN SCROLL SHEAR OPERATOR, TEQUILA 703.0 Ingrowing Nail With Infection 11/22/2008 IVÁN SCROLL SHEAR OPERATOR, TEQUILA 703.9 Dermatology Non-infectious Nails 11/22/2008 IVÁN SCROLL SHEAR OPERATOR, TEQUILA 704.8 Folliculitis 11/22/2008 IVÁN SCROLL SHEAR OPERATOR, TEQUILA 714.0 RHEUMATOID ARTHRITIS 11/22/2008 IVÁN SCROLL SHEAR OPERATOR, TEQUILA 785.6 Swollen Glands In The Neck 11/22/2008 IVÁN SCROLL SHEAR OPERATOR, TEQUILA V25.09 Health Seminar On Care 11/22/2008 SP HARRIS TREVER S 300.00 anxiety 11/22/2008 SP SCROLL SHEAR OPERATOR, TREVER S 703.0 Ingrowing Nail With Infection 11/22/2008 SP SCROLL SHEAR OPERATOR, TREVER S 703.9 Dermatology Non-infectious Nails 11/22/2008 SP SCROLL SHEAR OPERATOR, TREVER S 704.8 Folliculitis 11/22/2008 SP SCROLL SHEAR OPERATOR, TREVER S 714.0 RHEUMATOID ARTHRITIS 11/22/2008 SP SCROLL SHEAR OPERATOR, TREVER S 785.6 Swollen Glands In The Neck 11/22/2008 SP HARRIS TREVER S V25.09 Health Seminar On Care 11/22/2008 IVÁN SCROLL SHEAR OPERATOR, TEQUILA 300.00 anxiety 11/22/2008 IVÁN SCROLL SHEAR OPERATOR, TEQUILA 703.0 Ingrowing Nail With Infection 11/22/2008 IVÁN SCROLL SHEAR OPERATOR, TEQUILA 703.9 Dermatology Non-infectious Nails 11/22/2008 IVÁN SCROLL SHEAR OPERATOR, TEQUILA 704.8 Folliculitis 11/22/2008 IVÁN SCROLL SHEAR OPERATOR, TEQUILA 714.0 RHEUMATOID ARTHRITIS 11/22/2008 IVÁN SCROLL SHEAR OPERATOR, TEQUILA 785.6 Swollen Glands In The Neck 11/22/2008 IVÁN SCROLL SHEAR OPERATOR, TEQUILA V25.09 Health Seminar On Care 11/22/2008 IVÁN SCROLL SHEAR OPERATOR, TEQUILA 300.00 anxiety 11/22/2008 IVÁN SCROLL SHEAR OPERATOR, TEQUILA 703.0 Ingrowing Nail With Infection 11/22/2008 IVÁN SCROLL SHEAR OPERATOR, TEQUILA 703.9 Dermatology Non-infectious Nails 11/22/2008 IVÁN SCROLL SHEAR OPERATOR, TEQUILA 704.8 Folliculitis 11/22/2008 IVÁN SCROLL SHEAR OPERATOR, TEQUILA 714.0 RHEUMATOID ARTHRITIS 11/22/2008 IVÁN SCROLL SHEAR OPERATOR, TEQUILA 785.6 Swollen Glands In The Neck 11/22/2008 IVÁN SCROLL SHEAR OPERATOR, TEQUILA V25.09 Health Seminar On Care 11/22/2008 IVÁN HARRIS TEQUILA 300.00 anxiety 11/22/2008 IVÁN SCROLL SHEAR OPERATOR, TEQUILA 703.0 Ingrowing Nail With Infection 11/22/2008 IVÁN SCROLL SHEAR OPERATOR, TEQUILA 703.9 Dermatology Non-infectious Nails 11/22/2008 IVÁN SCROLL SHEAR OPERATOR, TEQUILA 704.8 Folliculitis 11/22/2008 IVÁN SCROLL SHEAR OPERATOR, TEQUILA 714.0 RHEUMATOID ARTHRITIS 11/22/2008 IVÁN SCROLL SHEAR OPERATOR, TEQUILA 785.6 Swollen Glands In The Neck 11/22/2008 IVÁN SCROLL SHEAR OPERATOR, TEQUILA V25.09 Health Seminar On Care 11/22/2008 SP HARRIS, TREVER S 300.00 anxiety 11/22/2008 SP SCROLL SHEAR OPERATOR, TREVER S 703.0 Ingrowing Nail With Infection 11/22/2008 SP HARRIS TREVER S 703.9 Dermatology Non-infectious Nails 11/22/2008 SP SCROLL SHEAR OPERATOR, TREVER S 704.8 Folliculitis 11/22/2008 SP SCROLL SHEAR OPERATOR, TREVER S 714.0 RHEUMATOID ARTHRITIS 11/22/2008 SP SCROLL SHEAR OPERATOR, TREVER S 785.6 Swollen Glands In The Neck 11/22/2008 SP HARRIS, TREVER S V25.09 Health Seminar On Care 11/22/2008 IVÁN SCROLL SHEAR OPERATOR, TEQUILA 300.00 anxiety 11/22/2008 IVÁN SCROLL SHEAR OPERATOR, TEQUILA 703.0 Ingrowing Nail With Infection 11/22/2008 [...] APRN V72.31 Routine Gynecological Examination 11/30/2008 IVÁN SCROLL SHEAR OPERATOR, TEQUILA 611.72 Breast Lump Or Mass Right 11/30/2008 IVÁN SCROLL SHEAR OPERATOR, TEQUILA V72.31 Routine Gynecological Examination 11/30/2008 IVÁN SCROLL SHEAR OPERATOR, TEQUILA 611.72 Breast Lump Or Mass Right 11/30/2008 IVÁN SCROLL SHEAR OPERATOR, TEQUILA V72.31 Routine Gynecological Examination 11/30/2008 IVÁN SCROLL SHEAR OPERATOR, TEQUILA 611.72 Breast Lump Or Mass Right 11/30/2008 IVÁN SCROLL SHEAR OPERATOR, TEQUILA V72.31 Routine Gynecological Examination 11/30/2008 IVÁN SCROLL SHEAR OPERATOR, TEQUILA 611.72 Breast Lump Or Mass Right 11/30/2008 IVÁN SCROLL SHEAR OPERATOR, TEQUILA V72.31 Routine Gynecological Examination 11/30/2008 IVÁN SCROLL SHEAR OPERATOR, TEQUILA 611.72 Breast Lump Or Mass Right 11/30/2008 IVÁN SCROLL SHEAR OPERATOR, TEQUILA V72.31 Routine Gynecological Examination 11/30/2008 SP SCROLL SHEAR OPERATOR, TREVER S 611.72 Breast Lump Or Mass Right 11/30/2008 SP HARRIS, TREVER S V72.31 Routine Gynecological Examination 11/30/2008 IVÁN SCROLL SHEAR OPERATOR, TEQUILA 611.72 Breast Lump Or Mass Right 11/30/2008 IVÁN SCROLL SHEAR OPERATOR, TEQUILA V72.31 Routine Gynecological Examination 11/30/2008 IVÁN SCROLL SHEAR OPERATOR, TEQUILA 611.72 Breast Lump Or Mass Right 11/30/2008 IVÁN SCROLL SHEAR OPERATOR, TEQUILA V72.31 Routine Gynecological Examination 11/30/2008 IVÁN SCROLL SHEAR OPERATOR, TEQUILA 611.72 Breast Lump Or Mass Right 11/30/2008 IVÁN SCROLL SHEAR OPERATOR, TEQUILA V72.31 Routine Gynecological Examination 11/30/2008 SP SCROLL SHEAR OPERATOR, TREVER S 611.72 Breast Lump Or Mass Right 11/30/2008 SP SCROLL SHEAR OPERATOR, TREVER S V72.31 Routine Gynecological Examination 11/30/2008 IVÁN SCROLL SHEAR OPERATOR, TEQUILA 611.72 Breast Lump Or Mass Right 11/30/2008 IVÁN SCROLL SHEAR OPERATOR, TEQUILA V72.31 Routine Gynecological Examination 03/01/2009 CORTEZ CARREON DO 795.03 Pap Smear (+) Low Grade Squamous Intraepithelial Lesion 03/01/2009 795.03 Pap Smear (+ ) Low Grade Squamous Intraepithelial Lesion 03/01/2009 LAURI HERNADEZCORTEZ K 795.03 Pap Smear (+) Low Grade Squamous Intraepithelial Lesion 03/01/2009 LAURI HERNADEZ CORTEZ K 795.03 Pap Smear (+) Low [...] Low Grade Squamous Intraepithelial Lesion 03/01/2009 IVÁN SCROLL SHEAR OPERATOR, TEQUILA 795.03 Pap Smear (+) Low Grade Squamous Intraepithelial Lesion 03/01/2009 IVÁN SCROLL SHEAR OPERATOR, TEQUILA 795.03 Pap Smear (+) Low Grade Squamous Intraepithelial Lesion 03/01/2009 IVÁN SCROLL SHEAR OPERATOR, TEQUILA 795.03 PAP SMEAR (+) LOW GRADE SQUAMOUS INTRAEPITHELIAL LESION 03/01/2009 IVÁN SCROLL SHEAR OPERATOR, TEQUILA 795.03 PAP SMEAR (+) LOW GRADE SQUAMOUS INTRAEPITHELIAL LESION 03/01/2009 IVÁN SCROLL SHEAR OPERATOR, TEQUILA 795.03 PAP SMEAR (+) LOW GRADE SQUAMOUS INTRAEPITHELIAL LESION 03/01/2009 JACYOB SNOWDEN APRNA S 795.03 PAP SMEAR (+) LOW GRADE SQUAMOUS INTRAEPITHELIAL LESION 03/01/2009 IVÁN SCROLL SHEAR OPERATOR, TEQUILA 795.03 PAP SMEAR (+) LOW GRADE SQUAMOUS INTRAEPITHELIAL LESION 03/01/2009 IVÁN SCROLL SHEAR OPERATOR, TEQUILA 795.03 PAP SMEAR (+) LOW GRADE SQUAMOUS INTRAEPITHELIAL LESION 03/01/2009 IVÁN SCROLL SHEAR OPERATOR, TEQUILA 795.03 PAP SMEAR (+) LOW GRADE SQUAMOUS INTRAEPITHELIAL LESION 03/01/2009 JAYCOB SNOWDEN APRNA S 795.03 PAP SMEAR (+) LOW GRADE SQUAMOUS INTRAEPITHELIAL LESION 03/01/2009 IVÁN SCROLL SHEAR OPERATOR, TEQUILA 795.03 PAP SMEAR (+) LOW GRADE SQUAMOUS INTRAEPITHELIAL LESION 07/04/2009 CARREON DO, CORTEZ K 278.02 OVERWEIGHT 07/04/2009 278.02 OVERWEIGHT 07/04/2009 CARREON DO, CORTEZ K 278.02 OVERWEIGHT 07/04/2009 CARREON DO, CORTEZ K 278.02 OVERWEIGHT 07/04/2009 MORAIMA LOYA APRN 278.02 OVERWEIGHT 07/04/2009 LYNDSAY RASHEED MD 278.02 OVERWEIGHT 07/04/2009 MORAIMA LOYA APRN 278.02 OVERWEIGHT 07/04/2009 278.02 OVERWEIGHT 07/04/2009 MORAIMA LOYA APRN 278.02 OVERWEIGHT 07/04/2009 MORAIMA LOYA APRN 278.02 OVERWEIGHT 07/04/2009 IVÁN SCROLL SHEAR OPERATOR, TEQUILA 278.02 OVERWEIGHT 07/04/2009 IVÁN SCROLL SHEAR OPERATOR, TEQUILA 278.02 OVERWEIGHT 07/04/2009 IVÁN SCROLL SHEAR OPERATOR, TEQUILA 278.02 OVERWEIGHT 07/04/2009 IVÁN SCROLL SHEAR OPERATOR, TEQUILA 278.02 OVERWEIGHT 07/04/2009 IVÁN SCROLL SHEAR OPERATOR, TEQUILA 278.02 OVERWEIGHT 07/04/2009 SP SCROLL SHEAR OPERATOR, TREVER S 278.02 OVERWEIGHT 07/04/2009 IVÁN SCROLL SHEAR OPERATOR, TEQUILA 278.02 OVERWEIGHT 07/04/2009 IVÁN SCROLL SHEAR OPERATOR, TEQUILA 278.02 OVERWEIGHT 07/04/2009 IVÁN SCROLL SHEAR OPERATOR, TEQUILA 278.02 OVERWEIGHT 07/04/2009 SP SCROLL SHEAR OPERATOR, TREVER S 278.02 OVERWEIGHT 07/04/2009 IVÁN SCROLL SHEAR OPERATOR, TEQUILA 278.02 OVERWEIGHT 12/26/2009 CARREON DO, CORTEZ [...] MORAIMA LOYA APRN 716.90 ARTHROPATHY 12/26/2009 IVÁN SCROLL SHEAR OPERATOR, TEQUILA 250.00 DIABETES MELLITUS 12/26/2009 IVÁN SCROLL SHEAR OPERATOR, TEQUILA 716.90 ARTHROPATHY 12/26/2009 IVÁN SCROLL SHEAR OPERATOR, TEQUILA 250.00 DIABETES MELLITUS 12/26/2009 IVÁN SCROLL SHEAR OPERATOR, TEQUILA 716.90 ARTHROPATHY 12/26/2009 IVÁN SCROLL SHEAR OPERATOR, TEQUILA 250.00 DIABETES MELLITUS 12/26/2009 IVÁN SCROLL SHEAR OPERATOR, TEQUILA 716.90 ARTHROPATHY 12/26/2009 IVÁN SCROLL SHEAR OPERATOR, TEQUILA 250.00 DIABETES MELLITUS 12/26/2009 IVÁN SCROLL SHEAR OPERATOR, TEQUILA 716.90 ARTHROPATHY 12/26/2009 IVÁN SCROLL SHEAR OPERATOR, TEQUILA 250.00 DIABETES MELLITUS 12/26/2009 IVÁN SCROLL SHEAR OPERATOR, TEQUILA 716.90 ARTHROPATHY 12/26/2009 SP SCROLL SHEAR OPERATOR, TREVER S 250.00 DIABETES MELLITUS 12/26/2009 SP SCROLL SHEAR OPERATOR, TREVER S 716.90 ARTHROPATHY 12/26/2009 IVÁN SCROLL SHEAR OPERATOR, TEQUILA 250.00 DIABETES MELLITUS 12/26/2009 IVÁN SCROLL SHEAR OPERATOR, TEQUILA 716.90 ARTHROPATHY 12/26/2009 IVÁN SCROLL SHEAR OPERATOR, TEQUILA 250.00 DIABETES MELLITUS 12/26/2009 IVÁN SCROLL SHEAR OPERATOR, TEQUILA 716.90 ARTHROPATHY 12/26/2009 IVÁN SCROLL SHEAR OPERATOR, TEQUILA 250.00 DIABETES MELLITUS 12/26/2009 IVÁN SCROLL SHEAR OPERATOR, TEQUILA 716.90 ARTHROPATHY 12/26/2009 SP SCROLL SHEAR OPERATOR, TREVER S 250.00 DIABETES MELLITUS 12/26/2009 SP SCROLL SHEAR OPERATOR, TREVER S 716.90 ARTHROPATHY 12/26/2009 IVÁN SCROLL SHEAR OPERATOR, TEQUILA 250.00 DIABETES MELLITUS 12/26/2009 IVÁN SCROLL SHEAR OPERATOR, TEQUILA 716.90 ARTHROPATHY 01/08/2010 CARREON DO CORTEZ [...] Abscess Of The Left Axilla 01/08/2010 IVÁN SCROLL SHEAR OPERATOR, TEQUILA 682.3 Skin Abscess Of The Left Axilla 01/08/2010 IVÁN SCROLL SHEAR OPERATOR, TEQUILA 682.3 Skin Abscess Of The Left Axilla 01/08/2010 IVÁN SCROLL SHEAR OPERATOR, TEQUILA 682.3 Skin Abscess Of The Left Axilla 01/08/2010 IVÁN SCROLL SHEAR OPERATOR, TEQUILA 682.3 Skin Abscess Of The Left Axilla 01/08/2010 IVÁN SCROLL SHEAR OPERATOR, TEQUILA 682.3 Skin Abscess Of The Left Axilla 01/08/2010 SP SCROLL SHEAR OPERATOR, TREVER S 682.3 Skin Abscess Of The Left Axilla 01/08/2010 IVÁN SCROLL SHEAR OPERATOR, TEQUILA 682.3 Skin Abscess Of The Left Axilla 01/08/2010 IVÁN SCROLL SHEAR OPERATOR, TEQUILA 682.3 Skin Abscess Of The Left Axilla 01/08/2010 IVÁN SCROLL SHEAR OPERATOR, TEQUILA 682.3 Skin Abscess Of The Left Axilla 01/08/2010 TREVER SNOWDEN APRN 682.3 Skin Abscess Of The Left Axilla 01/08/2010 IVÁN SCROLL SHEAR OPERATOR, TEQUILA 682.3 Skin Abscess Of The Left [...] APRN D V58.31 Wound Dressing 01/11/2010 IVÁN SCROLL SHEAR OPERATOR, TEQUILA 682.9 Cellulitis 01/11/2010 IVÁN SCROLL SHEAR OPERATOR, TEQUILA V58.31 Wound Dressing 01/11/2010 IVÁN SCROLL SHEAR OPERATOR, TEQUILA 682.9 Cellulitis 01/11/2010 IVÁN SCROLL SHEAR OPERATOR, TEQUILA V58.31 Wound Dressing 01/11/2010 IVÁN SCROLL SHEAR OPERATOR, TEQUILA 682.9 Cellulitis 01/11/2010 IVÁN SCROLL SHEAR OPERATOR, TEQUILA V58.31 Wound Dressing 01/11/2010 IVÁN SCROLL SHEAR OPERATOR, TEQUILA 682.9 Cellulitis 01/11/2010 IVÁN SCROLL SHEAR OPERATOR, TEQUILA V58.31 Wound Dressing 01/11/2010 IVÁN SCROLL SHEAR OPERATOR, TEQUILA 682.9 Cellulitis 01/11/2010 IVÁN SCROLL SHEAR OPERATOR, TEQUILA V58.31 Wound Dressing 01/11/2010 SP SCROLL SHEAR OPERATOR, TREVER S 682.9 Cellulitis 01/11/2010 SP SCROLL SHEAR OPERATOR, TREVER S V58.31 Wound Dressing 01/11/2010 IVÁN SCROLL SHEAR OPERATOR, TEQUILA 682.9 Cellulitis 01/11/2010 IVÁN SCROLL SHEAR OPERATOR, TEQUILA V58.31 Wound Dressing 01/11/2010 IVÁN SCROLL SHEAR OPERATOR, TEQUILA 682.9 Cellulitis 01/11/2010 IVÁN SCROLL SHEAR OPERATOR, TEQUILA V58.31 Wound Dressing 01/11/2010 IVÁN SCROLL SHEAR OPERATOR, TEQUILA 682.9 Cellulitis 01/11/2010 IVÁN SCROLL SHEAR OPERATOR, TEQUILA V58.31 Wound Dressing 01/11/2010 SP SCROLL SHEAR OPERATOR, TREVER S 682.9 Cellulitis 01/11/2010 SP SCROLL SHEAR OPERATOR, TREVER S V58.31 Wound Dressing 01/11/2010 IVÁN SCROLL SHEAR OPERATOR, TEQUILA 682.9 Cellulitis 01/11/2010 IVÁN SCROLL SHEAR OPERATOR, TEQUILA V58.31 Wound Dressing 01/17/2010 CORTEZ CARREON DO K 564.1 IRRITABLE BOWEL SYNDROME 01/17/2010 CORTEZ CARREON DO K 791.0 PROTEINURIA 01/17/2010 564.1 IRRITABLE BOWEL SYNDROME 01/17/2010 791.0 PROTEINURIA 01/17/2010 CARREON , CORTEZ K 564.1 IRRITABLE BOWEL SYNDROME 01/17/2010 [...] MORAIMA LOYA APRN 791.0 PROTEINURIA 01/17/2010 IVÁN SCROLL SHEAR OPERATOR, TEQUILA 564.1 IRRITABLE BOWEL SYNDROME 01/17/2010 IVÁN SCROLL SHEAR OPERATOR, TEQUILA 791.0 PROTEINURIA 01/17/2010 IVÁN SCROLL SHEAR OPERATOR, TEQUILA 564.1 IRRITABLE BOWEL SYNDROME 01/17/2010 IVÁN SCROLL SHEAR OPERATOR, TEQUILA 791.0 PROTEINURIA 01/17/2010 IVÁN SCROLL SHEAR OPERATOR, TEQUILA 564.1 IRRITABLE BOWEL SYNDROME 01/17/2010 IVÁN SCROLL SHEAR OPERATOR, TEQUILA 791.0 PROTEINURIA 01/17/2010 IVÁN SCROLL SHEAR OPERATOR, TEQUILA 564.1 IRRITABLE BOWEL SYNDROME 01/17/2010 IVÁN SCROLL SHEAR OPERATOR, TEQUILA 791.0 PROTEINURIA 01/17/2010 IVÁN SCROLL SHEAR OPERATOR, TEQUILA 564.1 IRRITABLE BOWEL SYNDROME 01/17/2010 IVÁN SCROLL SHEAR OPERATOR, TEQUILA 791.0 PROTEINURIA 01/17/2010 SP SCROLL SHEAR OPERATOR, TREVER S 564.1 IRRITABLE BOWEL SYNDROME 01/17/2010 SP HARRIS TREVER S 791.0 PROTEINURIA 01/17/2010 IVÁN SCROLL SHEAR OPERATOR, TEQUILA 564.1 IRRITABLE BOWEL SYNDROME 01/17/2010 IVÁN SCROLL SHEAR OPERATOR, TEQUILA 791.0 PROTEINURIA 01/17/2010 IVÁN SCROLL SHEAR OPERATOR, TEQUILA 564.1 IRRITABLE BOWEL SYNDROME 01/17/2010 IVÁN SCROLL SHEAR OPERATOR, TEQUILA 791.0 PROTEINURIA 01/17/2010 IVÁN SCROLL SHEAR OPERATOR, TEQUILA 564.1 IRRITABLE BOWEL SYNDROME 01/17/2010 IVÁN SCROLL SHEAR OPERATOR, TEQUILA 791.0 PROTEINURIA 01/17/2010 JAYCOB SNOWDEN APRNA S 564.1 IRRITABLE BOWEL SYNDROME 01/17/2010 JAYCOB SNOWDEN APRNA S 791.0 PROTEINURIA 01/17/2010 IVÁN SCROLL SHEAR OPERATOR, TEQUILA 564.1 IRRITABLE BOWEL SYNDROME 01/17/2010 IVÁN SCROLL SHEAR OPERATOR, TEQUILA 791.0 PROTEINURIA 03/31/2010 CORTEZ CARREON DO K 627.1 Postmenopausal Bleeding 03/31/2010 627.1 Postmenopausal Bleeding 03/31/2010 CARREON BERT HERNADEZA K 627.1 Postmenopausal Bleeding 03/31/2010 CORTEZ CARREON DO K 627.1 Postmenopausal Bleeding 03/31/2010 MORAIMA LOYA APRN 627.1 Postmenopausal Bleeding 03/31/2010 LYNDSAY RASHEED MD 627.1 Postmenopausal Bleeding 03/31/2010 MORAIMA LOYA APRN 627.1 Postmenopausal Bleeding 03/31/2010 627.1 Postmenopausal Bleeding 03/31/2010 MORAIMA LOYA APRN 627.1 Postmenopausal Bleeding 03/31/2010 MORAIMA LOYA APRN 627.1 Postmenopausal Bleeding 03/31/2010 IVÁN SCROLL SHEAR OPERATOR, TEQUILA 627.1 Postmenopausal Bleeding 03/31/2010 IVÁN SCROLL SHEAR OPERATOR, TEQUILA 627.1 Postmenopausal Bleeding 03/31/2010 IVÁN SCROLL SHEAR OPERATOR, TEQUILA 627.1 Postmenopausal Bleeding 03/31/2010 IVÁN SCROLL SHEAR OPERATOR, TEQUILA 627.1 Postmenopausal Bleeding 03/31/2010 IVÁN SCROLL SHEAR OPERATOR, TEQUILA 627.1 Postmenopausal Bleeding 03/31/2010 JAYCOB SNOWDEN APRNA S 627.1 Postmenopausal Bleeding 03/31/2010 IVÁN SCROLL SHEAR OPERATOR, TEQUILA 627.1 Postmenopausal Bleeding 03/31/2010 IVÁN SCROLL SHEAR OPERATOR, TEQUILA 627.1 Postmenopausal Bleeding 03/31/2010 IVÁN SCROLL SHEAR OPERATOR, TEQUILA 627.1 Postmenopausal Bleeding 03/31/2010 JAYCOB SNOWDEN APRNA S 627.1 Postmenopausal Bleeding 03/31/2010 IVÁN SCROLL SHEAR OPERATOR, TEQUILA 627.1 Postmenopausal Bleeding 04/21/2010 CARREON DO, CORTEZ K 486 Pneumonia 04/21/2010 486 Pneumonia 04/21/2010 CARREON DO, CORTEZ K 486 Pneumonia 04/21/2010 CARREON , CORTEZ K 486 Pneumonia 04/21/2010 MORAIMA OLYA APRN 486 Pneumonia 04/21/2010 KATHYA WEBSTER, LYNDSAY 486 Pneumonia 04/21/2010 SHALINI SCROLL SHEAR OPERATOR, MORAIMA Rivera 486 Pneumonia 04/21/2010 486 Pneumonia 04/21/2010 SHALINI SCROLL SHEAR OPERATOR, MORAIMA Rivera 486 Pneumonia 04/21/2010 SHALINI SCROLL SHEAR OPERATORMORAIMA Sims 486 Pneumonia 04/21/2010 IVÁN SCROLL SHEAR OPERATOR, TEQUILA 486 Pneumonia 04/21/2010 IVÁN SCROLL SHEAR OPERATOR, TEQUILA 486 Pneumonia 04/21/2010 IVÁN SCROLL SHEAR OPERATOR, TEQUILA 486 Pneumonia 04/21/2010 IVÁN SCROLL SHEAR OPERATOR, TEQUILA 486 Pneumonia 04/21/2010 IVÁN SCROLL SHEAR OPERATOR, TEQIULA 486 Pneumonia 04/21/2010 SP SCROLL SHEAR OPERATOR, TREVER S 486 Pneumonia 04/21/2010 IVÁN SCROLL SHEAR OPERATOR, TEQUILA 486 Pneumonia 04/21/2010 IVÁN SCROLL SHEAR OPERATOR, TEQUILA 486 Pneumonia 04/21/2010 IVÁN SCROLL SHEAR OPERATOR, TEQUILA 486 Pneumonia 04/21/2010 SP SCROLL SHEAR OPERATOR, TREVER S 486 Pneumonia 04/21/2010 IVÁN SCROLL SHEAR OPERATOR, TEQUILA 486 Pneumonia 05/07/2010 CORTEZ CARREON DO [...] 079.4 HUMAN PAPILLOMA VIRUS INFECTION 05/07/2010 IVÁN HARRIS, TEQUILA 616.10 Vaginitis Vulvovaginitis Unspecified 05/07/2010 IVÁN HARRIS TEQUILA 079.4 HUMAN PAPILLOMA VIRUS INFECTION 05/07/2010 IVÁN HARRIS TEQUILA 616.10 Vaginitis Vulvovaginitis Unspecified 05/07/2010 IVÁN HARRIS TEQUILA 079.4 HUMAN PAPILLOMA VIRUS INFECTION 05/07/2010 IVÁN SCROLL SHEAR OPERATOR, TEQUILA 616.10 Vaginitis Vulvovaginitis Unspecified 05/07/2010 IVÁN SCROLL SHEAR OPERATOR, TEQUILA 079.4 HUMAN PAPILLOMA VIRUS INFECTION 05/07/2010 IVÁN SCROLL SHEAR OPERATOR, TEQUILA 616.10 Vaginitis Vulvovaginitis Unspecified 05/07/2010 IVÁN SCROLL SHEAR OPERATOR, TEQUILA 079.4 HUMAN PAPILLOMA VIRUS INFECTION 05/07/2010 IVÁN SCROLL SHEAR OPERATOR, TEQUILA 616.10 Vaginitis Vulvovaginitis Unspecified 05/07/2010 TREVER SNOWDEN APRN 079.4 HUMAN PAPILLOMA VIRUS INFECTION 05/07/2010 SP SCROLL SHEAR OPERATOR, TREVER S 616.10 Vaginitis Vulvovaginitis Unspecified 05/07/2010 IVÁN SCROLL SHEAR OPERATOR, TEQUILA 079.4 HUMAN PAPILLOMA VIRUS INFECTION 05/07/2010 IVÁN SCROLL SHEAR OPERATOR, TEQUILA 616.10 Vaginitis Vulvovaginitis Unspecified 05/07/2010 IVÁN SCROLL SHEAR OPERATOR, TEQUILA 079.4 HUMAN PAPILLOMA VIRUS INFECTION 05/07/2010 IVÁN SCROLL SHEAR OPERATOR, TEQUILA 616.10 Vaginitis Vulvovaginitis Unspecified 05/07/2010 IVÁN SCROLL SHEAR OPERATOR, TEQUILA 079.4 HUMAN PAPILLOMA VIRUS INFECTION 05/07/2010 IVÁN SCROLL SHEAR OPERATOR, TEQUILA 616.10 Vaginitis Vulvovaginitis Unspecified 05/07/2010 SP SCROLL SHEAR OPERATOR, TREVER S 079.4 HUMAN PAPILLOMA VIRUS INFECTION 05/07/2010 SP SCROLL SHEAR OPERATOR, TREVER S 616.10 Vaginitis Vulvovaginitis Unspecified 05/07/2010 IVÁN SCROLL SHEAR OPERATOR, TEQUILA 079.4 HUMAN PAPILLOMA VIRUS INFECTION 05/07/2010 IVÁN SCROLL SHEAR OPERATOR, TEQUILA 616.10 Vaginitis Vulvovaginitis Unspecified 06/04/2010 BERT [...] MORAIMA LOYA APRN 466.0 Bronchitis, Acute 06/04/2010 GARTON SCROLL SHEAR OPERATOR, MORAIMA D 622.11 CERVICAL DYSPLASIA: MILD 06/04/2010 466.0 Bronchitis, Acute 06/04/2010 622.11 CERVICAL DYSPLASIA: MILD 06/04/2010 [facility] SCROLL SHEAR OPERATOR, MORAIMA D 466.0 Bronchitis, Acute 06/04/2010 [facility] SCROLL SHEAR OPERATOR, MORAIMA D 622.11 CERVICAL DYSPLASIA: MILD 06/04/2010 [facility] SCROLL SHEAR OPERATOR, MORAIMA D 466.0 Bronchitis, Acute 06/04/2010 GARTON SCROLL SHEAR OPERATOR, MORAIMA D 622.11 CERVICAL DYSPLASIA: MILD 06/04/2010 IVÁN SCROLL SHEAR OPERATOR, TEQUILA 466.0 Bronchitis, Acute 06/04/2010 IVÁN SCROLL SHEAR OPERATOR, TEQUILA 622.11 CERVICAL DYSPLASIA: MILD 06/04/2010 IVÁN SCROLL SHEAR OPERATOR, TEQUILA 466.0 Bronchitis, Acute 06/04/2010 IVÁN SCROLL SHEAR OPERATOR, TEQUILA 622.11 CERVICAL DYSPLASIA: MILD 06/04/2010 IVÁN SCROLL SHEAR OPERATOR, TEQUILA 466.0 Bronchitis, Acute 06/04/2010 IVÁN SCROLL SHEAR OPERATOR, TEQUILA 622.11 CERVICAL DYSPLASIA: MILD 06/04/2010 IVÁN SCROLL SHEAR OPERATOR, TEQUILA 466.0 Bronchitis, Acute 06/04/2010 IVÁN SCROLL SHEAR OPERATOR, TEQUILA 622.11 CERVICAL DYSPLASIA: MILD 06/04/2010 IVÁN SCROLL SHEAR OPERATOR, TEQUILA 466.0 Bronchitis, Acute 06/04/2010 IVÁN SCROLL SHEAR OPERATOR, TEQUILA 622.11 CERVICAL DYSPLASIA: MILD 06/04/2010 SP SCROLL SHEAR OPERATOR, TREVER S 466.0 Bronchitis, Acute 06/04/2010 SP SCROLL SHEAR OPERATOR, TREVER S 622.11 CERVICAL DYSPLASIA: MILD 06/04/2010 IVÁN SCROLL SHEAR OPERATOR, TEQUILA 466.0 Bronchitis, Acute 06/04/2010 IVÁN SCROLL SHEAR OPERATOR, TEQUILA 622.11 CERVICAL DYSPLASIA: MILD 06/04/2010 IVÁN SCROLL SHEAR OPERATOR, TEQUILA 466.0 Bronchitis, Acute 06/04/2010 IVÁN SCROLL SHEAR OPERATOR, TEQUILA 622.11 CERVICAL DYSPLASIA: MILD 06/04/2010 IVÁN SCROLL SHEAR OPERATOR, TEQUILA 466.0 Bronchitis, Acute 06/04/2010 IVÁN SCROLL SHEAR OPERATOR, TEQUILA 622.11 CERVICAL DYSPLASIA: MILD 06/04/2010 SP SCROLL SHEAR OPERATOR, TREVER S 466.0 Bronchitis, Acute 06/04/2010 SPSAMANTHA HURTADO APRNNDA S 622.11 CERVICAL DYSPLASIA: MILD 06/04/2010 TEQUILA MINOR APRN 466.0 Bronchitis, Acute 06/04/2010 DENICE MINOR APRNETTE 622.11 CERVICAL DYSPLASIA: MILD 06/30/2010 BERT CARREON DOA K 305.1 NICOTINE DEPENDENCE 06/30/2010 BERT CARREON DOA K 493.90 ASTHMA 06/30/2010 BERT CARREON DOA K V58.69 taking high-risk medication 06/30/2010 305.1 NICOTINE DEPENDENCE 06/30/2010 493.90 ASTHMA 06/30/2010 V58.69 taking high- risk medication 06/30/2010 CARREON BERT HERNADEZA K 305.1 NICOTINE DEPENDENCE 06/30/2010 BERT CARREON DOA K 493.90 ASTHMA 06/30/2010 CARREON BERT HERNADEZA K V58.69 taking high-risk medication 06/30/2010 BERT [...] APRN V58.69 taking high-risk medication 06/30/2010 IVÁN SCROLL SHEAR OPERATOR, TEQUILA 305.1 NICOTINE DEPENDENCE 06/30/2010 IVÁN SCROLL SHEAR OPERATOR, TEQUILA 493.90 ASTHMA 06/30/2010 IVÁN SCROLL SHEAR OPERATOR, TEQUILA V58.69 taking high-risk medication 06/30/2010 IVÁN SCROLL SHEAR OPERATOR, TEQUILA 305.1 NICOTINE DEPENDENCE 06/30/2010 IVÁN SCROLL SHEAR OPERATOR, TEQUILA 493.90 ASTHMA 06/30/2010 IVÁN SCROLL SHEAR OPERATOR, TEQUILA V58.69 taking high-risk medication 06/30/2010 IVÁN SCROLL SHEAR OPERATOR, TEQUILA 305.1 NICOTINE DEPENDENCE 06/30/2010 IVÁN SCROLL SHEAR OPERATOR, TEQUILA 493.90 ASTHMA 06/30/2010 IVÁN SCROLL SHEAR OPERATOR, TEQUILA V58.69 taking high-risk medication 06/30/2010 IVÁN SCROLL SHEAR OPERATOR, TEQUILA 305.1 NICOTINE DEPENDENCE 06/30/2010 IVÁN SCROLL SHEAR OPERATOR, TEQUILA 493.90 ASTHMA 06/30/2010 IVÁN SCROLL SHEAR OPERATOR, TEQUILA V58.69 taking high-risk medication 06/30/2010 IVÁN SCROLL SHEAR OPERATOR, TEQUILA 305.1 NICOTINE DEPENDENCE 06/30/2010 IVÁN SCROLL SHEAR OPERATOR, TEQUILA 493.90 ASTHMA 06/30/2010 IVÁN SCROLL SHEAR OPERATOR, TEQUILA V58.69 taking high-risk medication 06/30/2010 SP SCROLL SHEAR OPERATOR, TREVER S 305.1 NICOTINE DEPENDENCE 06/30/2010 SP SCROLL SHEAR OPERATOR, TREVER S 493.90 ASTHMA 06/30/2010 SP SCROLL SHEAR OPERATOR, TREVER S V58.69 taking high-risk medication 06/30/2010 IVÁN SCROLL SHEAR OPERATOR, TEQUILA 305.1 NICOTINE DEPENDENCE 06/30/2010 IVÁN SCROLL SHEAR OPERATOR, TEQUILA 493.90 ASTHMA 06/30/2010 IVÁN SCROLL SHEAR OPERATOR, TEQUILA V58.69 taking high-risk medication 06/30/2010 IVÁN SCROLL SHEAR OPERATOR, TEQUILA 305.1 NICOTINE DEPENDENCE 06/30/2010 IVÁN SCROLL SHEAR OPERATOR, TEQUILA 493.90 ASTHMA 06/30/2010 IVÁN SCROLL SHEAR OPERATOR, TEQUILA V58.69 taking high-risk medication 06/30/2010 IVÁN SCROLL SHEAR OPERATOR, TEQUILA 305.1 NICOTINE DEPENDENCE 06/30/2010 IVÁN SCROLL SHEAR OPERATOR, TEQUILA 493.90 ASTHMA 06/30/2010 IVÁN SCROLL SHEAR OPERATOR, TEQUILA V58.69 taking high-risk medication 06/30/2010 SP KIMBERLY TREVER S 305.1 NICOTINE DEPENDENCE 06/30/2010 SP SCROLL SHEAR OPERATOR, TREVER S 493.90 ASTHMA 06/30/2010 SP SCROLL SHEAR OPERATOR, TREVER S V58.69 taking high-risk medication 06/30/2010 IVÁN SCROLL SHEAR OPERATOR, TEQUILA 305.1 NICOTINE DEPENDENCE 06/30/2010 IVÁN SCROLL SHEAR OPERATOR, TEQUILA 493.90 ASTHMA 06/30/2010 IVÁN SCROLL SHEAR OPERATOR, TEQUILA V58.69 taking high-risk medication 11/21/2010 CORTEZ CARREON DO K 491.21 Bronchitis Aecb 11/21/2010 CORTEZ CARREON DO K 784.0 Headache 11/21/2010 491.21 Bronchitis Aecb 11/21/2010 784.0 Headache 11/21/2010 BERT CARREON DOA K 491.21 Bronchitis Aecb 11/21/2010 BERT CARREON DOA K 784.0 Headache 11/21/2010 CORTEZ CARREON DO K 491.21 Bronchitis [...] 11/21/2010 MORAIMA LOYA APRN 784.0 Headache 11/21/2010 LIDATON SCROLL SHEAR OPERATORMORAIMA Sims 491.21 Bronchitis Aecb 11/21/2010 LIDATON SCROLL SHEAR OPERATORMORAIMA Sims 784.0 Headache 11/21/2010 IVÁN SCROLL SHEAR OPERATOR, TEQUILA 491.21 Bronchitis Aecb 11/21/2010 IVÁN SCROLL SHEAR OPERATOR, TEQUILA 784.0 Headache 11/21/2010 IVÁN SCROLL SHEAR OPERATOR, TEQUILA 491.21 Bronchitis Aecb 11/21/2010 IVÁN SCROLL SHEAR OPERATOR, TEQUILA 784.0 Headache 11/21/2010 IVÁN SCROLL SHEAR OPERATOR, TEQUILA 491.21 Bronchitis Aecb 11/21/2010 IVÁN SCROLL SHEAR OPERATOR, TEQUILA 784.0 Headache 11/21/2010 IVÁN SCROLL SHEAR OPERATOR, TEQUILA 491.21 Bronchitis Aecb 11/21/2010 IVÁN SCROLL SHEAR OPERATOR, TEQUILA 784.0 Headache 11/21/2010 IVÁN SCROLL SHEAR OPERATOR, TEQUILA 491.21 Bronchitis Aecb 11/21/2010 IVÁN SCROLL SHEAR OPERATOR, TEQUILA 784.0 Headache 11/21/2010 SP SCROLL SHEAR OPERATOR, TREVER S 491.21 Bronchitis Aecb 11/21/2010 SP SCROLL SHEAR OPERATOR, TREVER S 784.0 Headache 11/21/2010 IVÁN SCROLL SHEAR OPERATOR, TEQUILA 491.21 Bronchitis Aecb 11/21/2010 IVÁN SCROLL SHEAR OPERATOR, TEQUILA 784.0 Headache 11/21/2010 IVÁN SCROLL SHEAR OPERATOR, TEQUILA 491.21 Bronchitis Aecb 11/21/2010 IVÁN SCROLL SHEAR OPERATOR, TEQUILA 784.0 Headache 11/21/2010 IVÁN SCROLL SHEAR OPERATOR, TEQUILA 491.21 Bronchitis Aecb 11/21/2010 IVÁN SCROLL SHEAR OPERATOR, TEQUILA 784.0 Headache 11/21/2010 SP SCROLL SHEAR OPERATOR, TREVER S 491.21 Bronchitis Aecb 11/21/2010 SP SCROLL SHEAR OPERATOR, TREVER S 784.0 Headache 11/21/2010 IVÁN SCROLL SHEAR OPERATOR, TEQUILA 491.21 Bronchitis Aecb 11/21/2010 IVÁN SCROLL SHEAR OPERATOR, TEQUILA 784.0 Headache 12/16/2010 CORTEZ CARREON DO [...] Screening Exam Malignant Neoplasm Breast 12/16/2010 IVÁN SCROLL SHEAR OPERATOR, TEQUILA 530.81 ESOPHAGEAL REFLUX 12/16/2010 IVÁN SCROLL SHEAR OPERATOR, TEQUILA 786.50 Chest Pain Or Discomfort 12/16/2010 IVÁN SCROLL SHEAR OPERATOR, TEQUILA 790.29 PREDIABETES (IMPAIRED GLUCOSE TOLERANCE) 12/16/2010 IVÁN HARRIS TEQUILA V76.10 Visit For: Screening Exam Malignant Neoplasm Breast 12/16/2010 IVÁN SCROLL SHEAR OPERATOR, TEQUILA 530.81 ESOPHAGEAL REFLUX 12/16/2010 IVÁN SCROLL SHEAR OPERATOR, TEQUILA 786.50 Chest Pain Or Discomfort 12/16/2010 IVÁN SCROLL SHEAR OPERATOR, TEQUILA 790.29 PREDIABETES (IMPAIRED GLUCOSE TOLERANCE) 12/16/2010 IVÁN SCROLL SHEAR OPERATOR, TEQUILA V76.10 Visit For: Screening Exam Malignant Neoplasm Breast 12/16/2010 IVÁN SCROLL SHEAR OPERATOR, TEQUILA 530.81 ESOPHAGEAL REFLUX 12/16/2010 IVÁN SCROLL SHEAR OPERATOR, TEQUILA 786.50 Chest Pain Or Discomfort 12/16/2010 IVÁN SCROLL SHEAR OPERATOR, TEQUILA 790.29 PREDIABETES (IMPAIRED GLUCOSE TOLERANCE) 12/16/2010 IVÁN SCROLL SHEAR OPERATOR, TEQUILA V76.10 Visit For: Screening Exam Malignant Neoplasm Breast 12/16/2010 IVÁN SCROLL SHEAR OPERATOR, TEQUILA 530.81 ESOPHAGEAL REFLUX 12/16/2010 IVÁN SCROLL SHEAR OPERATOR, TEQUILA 786.50 Chest Pain Or Discomfort 12/16/2010 IVÁN SCROLL SHEAR OPERATOR, TEQUILA 790.29 PREDIABETES (IMPAIRED GLUCOSE TOLERANCE) 12/16/2010 IVÁN SCROLL SHEAR OPERATOR, TEQUILA V76.10 Visit For: Screening Exam Malignant Neoplasm Breast 12/16/2010 IVÁN SCROLL SHEAR OPERATOR, TEQUILA 530.81 ESOPHAGEAL REFLUX 12/16/2010 IVÁN SCROLL SHEAR OPERATOR, TEQUILA 786.50 Chest Pain Or Discomfort 12/16/2010 IVÁN SCROLL SHEAR OPERATOR, TEQUILA 790.29 PREDIABETES (IMPAIRED GLUCOSE TOLERANCE) 12/16/2010 IVÁN SCROLL SHEAR OPERATOR, TEQUILA V76.10 Visit For: Screening Exam Malignant Neoplasm Breast 12/16/2010 SP SCROLL SHEAR OPERATOR, TREVER S 530.81 ESOPHAGEAL REFLUX 12/16/2010 SP SCROLL SHEAR OPERATOR, TREVER S 786.50 Chest Pain Or Discomfort 12/16/2010 SP SCROLL SHEAR OPERATOR, TREVER S 790.29 PREDIABETES (IMPAIRED GLUCOSE TOLERANCE) 12/16/2010 SP SCROLL SHEAR OPERATOR, TREVER S V76.10 Visit For: Screening Exam Malignant Neoplasm Breast 12/16/2010 IVÁN SCROLL SHEAR OPERATOR, TEQUILA 530.81 ESOPHAGEAL REFLUX 12/16/2010 IVÁN SCROLL SHEAR OPERATOR, TEQUILA 786.50 Chest Pain Or Discomfort 12/16/2010 IVÁN SCROLL SHEAR OPERATOR, TEQUILA 790.29 PREDIABETES (IMPAIRED GLUCOSE TOLERANCE) 12/16/2010 IVÁN SCROLL SHEAR OPERATOR, TEQUILA V76.10 Visit For: Screening Exam Malignant Neoplasm Breast 12/16/2010 IVÁN SCROLL SHEAR OPERATOR, TEQUILA 530.81 ESOPHAGEAL REFLUX 12/16/2010 IVÁN SCROLL SHEAR OPERATOR, TEQUILA 786.50 Chest Pain Or Discomfort 12/16/2010 IVÁN SCROLL SHEAR OPERATOR, TEQUILA 790.29 PREDIABETES (IMPAIRED GLUCOSE TOLERANCE) 12/16/2010 IVÁN SCROLL SHEAR OPERATOR, TEQUILA V76.10 Visit For: Screening Exam Malignant Neoplasm Breast 12/16/2010 IVÁN SCROLL SHEAR OPERATOR, TEQUILA 530.81 ESOPHAGEAL REFLUX 12/16/2010 IVÁN SCROLL SHEAR OPERATOR, TEQUILA 786.50 Chest Pain Or Discomfort 12/16/2010 IVÁN SCROLL SHEAR OPERATOR, TEQUILA 790.29 PREDIABETES (IMPAIRED GLUCOSE TOLERANCE) 12/16/2010 IVÁN SCROLL SHEAR OPERATOR, TEQUILA V76.10 Visit For: Screening Exam Malignant Neoplasm Breast 12/16/2010 SP SCROLL SHEAR OPERATOR, TREVER S 530.81 ESOPHAGEAL REFLUX 12/16/2010 SP SCROLL SHEAR OPERATOR, TREVER S 786.50 Chest Pain Or Discomfort 12/16/2010 SP SCROLL SHEAR OPERATOR, TREVER S 790.29 PREDIABETES (IMPAIRED GLUCOSE TOLERANCE) 12/16/2010 SP SCROLL SHEAR OPERATOR, TREVER S V76.10 Visit For: Screening Exam Malignant Neoplasm Breast 12/16/2010 IVÁN SCROLL SHEAR OPERATOR, TEQUILA 530.81 ESOPHAGEAL REFLUX 12/16/2010 IVÁN SCROLL SHEAR OPERATOR, TEQUILA 786.50 Chest Pain Or Discomfort 12/16/2010 IVÁN SCROLL SHEAR OPERATOR, TEQUILA 790.29 PREDIABETES (IMPAIRED GLUCOSE TOLERANCE) 12/16/2010 IVÁN SCROLL SHEAR OPERATOR, TEQULIA V76.10 Visit For: Screening Exam Malignant Neoplasm [...] MORAIMA LOYA APRN 786.2 Cough 01/19/2011 IVÁN SCROLL SHEAR OPERATOR, TEQUILA 414.00 CORONARY ARTERY DISEASE 01/19/2011 IVÁN SCROLL SHEAR OPERATOR, TEQUILA 466.0 Acute Bronchitis 01/19/2011 IVÁN SCROLL SHEAR OPERATOR, TEQUILA 786.2 Cough 01/19/2011 IVÁN SCROLL SHEAR OPERATOR, TEQUILA 414.00 CORONARY ARTERY DISEASE 01/19/2011 IVÁN SCROLL SHEAR OPERATOR, TEQUILA 466.0 Acute Bronchitis 01/19/2011 IVÁN SCROLL SHEAR OPERATOR, TEQUILA 786.2 Cough 01/19/2011 IVÁN SCROLL SHEAR OPERATOR, TEQUILA 414.00 CORONARY ARTERY DISEASE 01/19/2011 IVÁN SCROLL SHEAR OPERATOR, TEQUILA 466.0 Acute Bronchitis 01/19/2011 IVÁN SCROLL SHEAR OPERATOR, TEQUILA 786.2 Cough 01/19/2011 IVÁN SCROLL SHEAR OPERATOR, TEQUILA 414.00 CORONARY ARTERY DISEASE 01/19/2011 IVÁN SCROLL SHEAR OPERATOR, TEQUILA 466.0 Acute Bronchitis 01/19/2011 IVÁN SCROLL SHEAR OPERATOR, TEQUILA 786.2 Cough 01/19/2011 IVÁN SCROLL SHEAR OPERATOR, TEQUILA 414.00 CORONARY ARTERY DISEASE 01/19/2011 IVÁN SCROLL SHEAR OPERATOR, TEQUILA 466.0 Acute Bronchitis 01/19/2011 IVÁN SCROLL SHEAR OPERATOR, TEQUILA 786.2 Cough 01/19/2011 SP SCROLL SHEAR OPERATOR, TREVER S 414.00 CORONARY ARTERY DISEASE 01/19/2011 SP SCROLL SHEAR OPERATOR, TREVER S 466.0 Acute Bronchitis 01/19/2011 SP SCROLL SHEAR OPERATOR, TREVER S 786.2 Cough 01/19/2011 IVÁN SCROLL SHEAR OPERATOR, TEQUILA 414.00 CORONARY ARTERY DISEASE 01/19/2011 IVÁN SCROLL SHEAR OPERATOR, TEQUILA 466.0 Acute Bronchitis 01/19/2011 IVÁN SCROLL SHEAR OPERATOR, TEQUILA 786.2 Cough 01/19/2011 IVÁN SCROLL SHEAR OPERATOR, TEQUILA 414.00 CORONARY ARTERY DISEASE 01/19/2011 IVÁN SCROLL SHEAR OPERATOR, TEQUILA 466.0 Acute Bronchitis 01/19/2011 IVÁN SCROLL SHEAR OPERATOR, TEQUILA 786.2 Cough 01/19/2011 IVÁN SCROLL SHEAR OPERATOR, TEQUILA 414.00 CORONARY ARTERY DISEASE 01/19/2011 IVÁN SCROLL SHEAR OPERATOR, TEQUILA 466.0 Acute Bronchitis 01/19/2011 IVÁN SCROLL SHEAR OPERATOR, TEQUILA 786.2 Cough 01/19/2011 SP SCROLL SHEAR OPERATOR, TREVER S 414.00 CORONARY ARTERY DISEASE 01/19/2011 SP SCROLL SHEAR OPERATOR, TREVER S 466.0 Acute Bronchitis 01/19/2011 SP SCROLL SHEAR OPERATOR, TREVER S 786.2 Cough 01/19/2011 IVÁN SCROLL SHEAR OPERATOR, TEQUILA 414.00 CORONARY ARTERY DISEASE 01/19/2011 IVÁN SCROLL SHEAR OPERATOR, TEQUILA 466.0 Acute Bronchitis 01/19/2011 IVÁN SCROLL SHEAR OPERATOR, TEQUILA 786.2 Cough 03/11/2011 CORTEZ CARREON DO 787.02 Nausea Alone 03/11/2011 CORTEZ CARREON DO 789.03 Abdominal Pain Right Lower Quadrant 03/11/2011 787.02 Nausea Alone 03/11/2011 789.03 Abdominal Pain Right Lower Quadrant 03/11/2011 CORTEZ CARREON DO 787.02 Nausea Alone [...] Abdominal Pain Right Lower Quadrant 03/11/2011 IVÁN HARRIS TEQUILA 787.02 Nausea Alone 03/11/2011 IVÁN HARRIS TEQUILA 789.03 Abdominal Pain Right Lower Quadrant 03/11/2011 IVÁNFITZ HARRIS TEQUILA 787.02 Nausea Alone 03/11/2011 IVÁNFITZ HARRIS TEQUILA 789.03 Abdominal Pain Right Lower Quadrant 03/11/2011 IVÁN SCROLL SHEAR OPERATOR, TEQUILA 787.02 Nausea Alone 03/11/2011 IVÁN SCROLL SHEAR OPERATOR, TEQUILA 789.03 Abdominal Pain Right Lower Quadrant 03/11/2011 IVÁN KIMBERLY TEQUILA 787.02 Nausea Alone 03/11/2011 IVÁN SCROLL SHEAR OPERATOR, TEQUILA 789.03 Abdominal Pain Right Lower Quadrant 03/11/2011 IVÁN SCROLL SHEAR OPERATOR, TEQUILA 787.02 Nausea Alone 03/11/2011 IVÁN SCROLL SHEAR OPERATOR, TEQUILA 789.03 Abdominal Pain Right Lower Quadrant 03/11/2011 JAYCOB SNOWDEN APRNA S 787.02 Nausea Alone 03/11/2011 JAYCOB SNOWDEN APRNA S 789.03 Abdominal Pain Right Lower Quadrant 03/11/2011 IVÁN SCROLL SHEAR OPERATOR, TEQUILA 787.02 Nausea Alone 03/11/2011 IVÁN SCROLL SHEAR OPERATOR, TEQUILA 789.03 Abdominal Pain Right Lower Quadrant 03/11/2011 IVÁN SCROLL SHEAR OPERATOR, TEQUILA 787.02 Nausea Alone 03/11/2011 IVÁN SCROLL SHEAR OPERATOR, TEQUILA 789.03 Abdominal Pain Right Lower Quadrant 03/11/2011 IVÁN SCROLL SHEAR OPERATOR, TEQUILA 787.02 Nausea Alone 03/11/2011 IÁVN SCROLL SHEAR OPERATOR, TEQUILA 789.03 Abdominal Pain Right Lower Quadrant 03/11/2011 SP SCROLL SHEAR OPERATOR, TREVER S 787.02 Nausea Alone 03/11/2011 SP SCROLL SHEAR OPERATOR, TREVER S 789.03 Abdominal Pain Right Lower Quadrant 03/11/2011 IVÁN SCROLL SHEAR OPERATOR, TEQUILA 787.02 Nausea Alone 03/11/2011 IVÁN SCROLL SHEAR OPERATOR, TEQUILA 789.03 Abdominal Pain Right Lower Quadrant 04/09/2011 CARRENO DO, CORTEZ K 272.4 HYPERLIPIDEMIA 04/09/2011 CARREON [...] LOYA APRN 788.30 INCONTINENCE/ENURESIS NOS 04/09/2011 IVÁN SCROLL SHEAR OPERATOR, TEQUILA 272.4 HYPERLIPIDEMIA 04/09/2011 IVÁN SCROLL SHEAR OPERATOR, TEQUILA 458.0 ORTHOSTATIC HYPOTENSION 04/09/2011 IVÁN SCROLL SHEAR OPERATOR, TEQUILA 571.8 FATTY LIVER 04/09/2011 IVÁN SCROLL SHEAR OPERATOR, TEQUILA 788.30 INCONTINENCE/ENURESIS NOS 04/09/2011 IVÁN SCROLL SHEAR OPERATOR, TEQUILA 272.4 HYPERLIPIDEMIA 04/09/2011 IVÁN SCROLL SHEAR OPERATOR, TEQUILA 458.0 ORTHOSTATIC HYPOTENSION 04/09/2011 IVÁN SCROLL SHEAR OPERATOR, TEQUILA 571.8 FATTY LIVER 04/09/2011 IVÁN SCROLL SHEAR OPERATOR, TEQUILA 788.30 INCONTINENCE/ENURESIS NOS 04/09/2011 IVÁN SCROLL SHEAR OPERATOR, TEQUILA 272.4 HYPERLIPIDEMIA 04/09/2011 IVÁN SCROLL SHEAR OPERATOR, TEQUILA 458.0 ORTHOSTATIC HYPOTENSION 04/09/2011 IVÁN SCROLL SHEAR OPERATOR, TEQUILA 571.8 FATTY LIVER 04/09/2011 IVÁN SCROLL SHEAR OPERATOR, TEQUILA 788.30 INCONTINENCE/ENURESIS NOS 04/09/2011 IVÁN SCROLL SHEAR OPERATOR, TEQUILA 272.4 HYPERLIPIDEMIA 04/09/2011 IVÁN SCROLL SHEAR OPERATOR, TEQUILA 458.0 ORTHOSTATIC HYPOTENSION 04/09/2011 IVÁN SCROLL SHEAR OPERATOR, TEQUILA 571.8 FATTY LIVER 04/09/2011 IVÁN SCROLL SHEAR OPERATOR, TEQUILA 788.30 INCONTINENCE/ENURESIS NOS 04/09/2011 IVÁN SCROLL SHEAR OPERATOR, TEQUILA 272.4 HYPERLIPIDEMIA 04/09/2011 IVÁN SCROLL SHEAR OPERATOR, TEQUILA 458.0 ORTHOSTATIC HYPOTENSION 04/09/2011 IVÁN SCROLL SHEAR OPERATOR, TEQUILA 571.8 FATTY LIVER 04/09/2011 IVÁN SCROLL SHEAR OPERATOR, TEQUILA 788.30 INCONTINENCE/ENURESIS NOS 04/09/2011 SP SCROLL SHEAR OPERATOR, TREVER S 272.4 HYPERLIPIDEMIA 04/09/2011 SP SCROLL SHEAR OPERATOR, TREVER S 458.0 ORTHOSTATIC HYPOTENSION 04/09/2011 SP SCROLL SHEAR OPERATOR, TREVER S 571.8 FATTY LIVER 04/09/2011 SP SCROLL SHEAR OPERATOR, TREVER S 788.30 INCONTINENCE/ENURESIS NOS 04/09/2011 IVÁN SCROLL SHEAR OPERATOR, TEQUILA 272.4 HYPERLIPIDEMIA 04/09/2011 IVÁN SCROLL SHEAR OPERATOR, TEQUILA 458.0 ORTHOSTATIC HYPOTENSION 04/09/2011 IVÁN SCROLL SHEAR OPERATOR, TEQUILA 571.8 FATTY LIVER 04/09/2011 IVÁN SCROLL SHEAR OPERATOR, TEQUILA 788.30 INCONTINENCE/ENURESIS NOS 04/09/2011 IVÁN SCROLL SHEAR OPERATOR, TEQUILA 272.4 HYPERLIPIDEMIA 04/09/2011 IVÁN SCROLL SHEAR OPERATOR, TEQUILA 458.0 ORTHOSTATIC HYPOTENSION 04/09/2011 IVÁN SCROLL SHEAR OPERATOR, TEQUILA 571.8 FATTY LIVER 04/09/2011 IVÁN SCROLL SHEAR OPERATOR, TEQUILA 788.30 INCONTINENCE/ENURESIS NOS 04/09/2011 IVÁN SCROLL SHEAR OPERATOR, TEQUILA 272.4 HYPERLIPIDEMIA 04/09/2011 IVÁN SCROLL SHEAR OPERATOR, TEQUILA 458.0 ORTHOSTATIC HYPOTENSION 04/09/2011 IVÁN SCROLL SHEAR OPERATOR, TEQUILA 571.8 FATTY LIVER 04/09/2011 IVÁN SCROLL SHEAR OPERATOR, TEQUILA 788.30 INCONTINENCE/ENURESIS NOS 04/09/2011 SP SCROLL SHEAR OPERATOR, TREVER S 272.4 HYPERLIPIDEMIA 04/09/2011 SP SCROLL SHEAR OPERATOR, TREVER S 458.0 ORTHOSTATIC HYPOTENSION 04/09/2011 SP SCROLL SHEAR OPERATOR, TREVER S 571.8 FATTY LIVER 04/09/2011 SP SCROLL SHEAR OPERATOR, TREVER S 788.30 INCONTINENCE/ENURESIS NOS 04/09/2011 IVÁN SCROLL SHEAR OPERATOR, TEQUILA 272.4 HYPERLIPIDEMIA 04/09/2011 IVÁN SCROLL SHEAR OPERATOR, TEQUILA 458.0 ORTHOSTATIC HYPOTENSION 04/09/2011 IVÁN SCROLL SHEAR OPERATOR, TEQUILA 571.8 FATTY LIVER 04/09/2011 IVÁN SCROLL SHEAR OPERATOR, TEQUILA 788.30 INCONTINENCE/ENURESIS NOS 05/08/2011 CARREON DO, [...] LOYA APRN 703.0 Nail Ingrown 05/08/2011 IVÁN SCROLL SHEAR OPERATOR, TEQUILA 110.1 Onychomycosis 05/08/2011 IVÁN SCROLL SHEAR OPERATOR, TEQUILA 703.0 Nail Ingrown 05/08/2011 IVÁN SCROLL SHEAR OPERATOR, TEQUILA 110.1 Onychomycosis 05/08/2011 IVÁN SCROLL SHEAR OPERATOR, TEQUILA 703.0 Nail Ingrown 05/08/2011 IVÁN SCROLL SHEAR OPERATOR, TEQUILA 110.1 Onychomycosis 05/08/2011 IVÁN SCROLL SHEAR OPERATOR, TEQUILA 703.0 Nail Ingrown 05/08/2011 IVÁN SCROLL SHEAR OPERATOR, TEQUILA 110.1 Onychomycosis 05/08/2011 IVÁN SCROLL SHEAR OPERATOR, TEQUILA 703.0 Nail Ingrown 05/08/2011 IVÁN SCROLL SHEAR OPERATOR, TEQUILA 110.1 Onychomycosis 05/08/2011 IVÁN SCROLL SHEAR OPERATOR, TEQUILA 703.0 Nail Ingrown 05/08/2011 SP SCROLL SHEAR OPERATOR, TREVER S 110.1 Onychomycosis 05/08/2011 SP SCROLL SHEAR OPERATOR, TREVER S 703.0 Nail Ingrown 05/08/2011 IVÁN SCROLL SHEAR OPERATOR, TEQUILA 110.1 Onychomycosis 05/08/2011 IVÁN SCROLL SHEAR OPERATOR, TEQUILA 703.0 Nail Ingrown 05/08/2011 IVÁN SCROLL SHEAR OPERATOR, TEQUILA 110.1 Onychomycosis 05/08/2011 IVÁN SCROLL SHEAR OPERATOR, TEQUILA 703.0 Nail Ingrown 05/08/2011 IVÁN SCROLL SHEAR OPERATOR, TEQUILA 110.1 Onychomycosis 05/08/2011 IVÁN SCROLL SHEAR OPERATOR, TEQUILA 703.0 Nail Ingrown 05/08/2011 SP SCROLL SHEAR OPERATOR, TREVER S 110.1 Onychomycosis 05/08/2011 SP SCROLL SHEAR OPERATOR, TREVER S 703.0 Nail Ingrown 05/08/2011 IVÁN SCROLL SHEAR OPERATOR, TEQUILA 110.1 Onychomycosis 05/08/2011 IVÁN SCROLL SHEAR OPERATOR, ETQUILA 703.0 Nail Ingrown 06/17/2011 CARREON DOCORTEZ 780.1 Hallucinations 06/17/2011 CARREON DOCORTEZ K 781.1 [...] Sensation Of Smell And Taste 06/17/2011 IVÁN SCROLL SHEAR OPERATOR, TEQUILA 780.1 Hallucinations 06/17/2011 IVÁN KIMBERLY TEQUILA 781.1 Disturbances Of Sensation Of Smell And Taste 06/17/2011 IVÁN SCROLL SHEAR OPERATOR, TEQUILA 780.1 Hallucinations 06/17/2011 IVÁN SCROLL SHEAR OPERATOR, TEQUILA 781.1 Disturbances Of Sensation Of Smell And Taste 06/17/2011 IVÁN SCROLL SHEAR OPERATOR TEQUILA 780.1 Hallucinations 06/17/2011 IVÁN SCROLL SHEAR OPERATOR TEQUILA 781.1 Disturbances Of Sensation Of Smell And Taste 06/17/2011 IVÁN SCROLL SHEAR OPERATOR TEQUILA 780.1 Hallucinations 06/17/2011 IVÁN SCROLL SHEAR OPERATOR TEQUILA 781.1 Disturbances Of Sensation Of Smell And Taste 06/17/2011 IVÁN SCROLL SHEAR OPERATOR, TEQUILA 780.1 Hallucinations 06/17/2011 IVÁN SCROLL SHEAR OPERATOR, TEQUILA 781.1 Disturbances Of Sensation Of Smell And Taste 06/17/2011 SP SCROLL SHEAR OPERATOR, TREVER S 780.1 Hallucinations 06/17/2011 SP SCROLL SHEAR OPERATOR, TREVER S 781.1 Disturbances Of Sensation Of Smell And Taste 06/17/2011 IVÁN SCROLL SHEAR OPERATOR, TEQUILA 780.1 Hallucinations 06/17/2011 IVÁN SCROLL SHEAR OPERATOR, TEQUILA 781.1 Disturbances Of Sensation Of Smell And Taste 06/17/2011 IVÁN SCROLL SHEAR OPERATOR, TEQUILA 780.1 Hallucinations 06/17/2011 IVÁN SCROLL SHEAR OPERATOR, TEQUILA 781.1 Disturbances Of Sensation Of Smell And Taste 06/17/2011 IVÁN SCROLL SHEAR OPERATOR, TEQUILA 780.1 Hallucinations 06/17/2011 IVÁN SCROLL SHEAR OPERATOR, TEQUILA 781.1 Disturbances Of Sensation Of Smell And Taste 06/17/2011 SP SCROLL SHEAR OPERATOR, TREVER S 780.1 Hallucinations 06/17/2011 SP SCROLL SHEAR OPERATOR, TREVER S 781.1 Disturbances Of Sensation Of Smell And Taste 06/17/2011 IVÁN SCROLL SHEAR OPERATOR, TEQUILA 780.1 Hallucinations 06/17/2011 IVÁN SCROLL SHEAR OPERATOR, TEQUILA 781.1 Disturbances Of Sensation Of Smell And Taste 08/31/2011 CORTEZ CARREON DO K 275.2 Hypomagnesemia 08/31/2011 LAURI HERNADEZ CORTEZ K 276.8 Hypokalemia 08/31/2011 CARREON , CORTEZ K V04.81 Vaccines Prophylactic Need Against Influenza 08/31/2011 LAURI HERNADEZ CORTEZ K V73.81 Visit For: Screening Exam For Human Papillomavirus (hpv) 08/31/2011 BERT CARREON DOA K V76.2 Cervical Pap Smear 08/31/2011 275.2 Hypomagnesemia 08/31/2011 276.8 Hypokalemia 08/31/2011 V04.81 Vaccines Prophylactic Need Against Influenza 08/31/2011 V73.81 Visit For: Screening Exam For Human Papillomavirus (hpv) 08/31/2011 V76.2 Cervical Pap Smear 08/31/2011 CARREON DO CORTEZ K 275.2 Hypomagnesemia 08/31/2011 CARREON DO CORTEZ K 276.8 Hypokalemia 08/31/2011 CARREON DO CORTEZ K V04.81 Vaccines Prophylactic Need Against Influenza 08/31/2011 CARREON , CORTEZ K V73.81 Visit For: Screening Exam For Human Papillomavirus (hpv) 08/31/2011 LAURI HERNADEZ, CORTEZ K V76.2 Cervical Pap Smear 08/31/2011 CARREON DO, CORTEZ K 275.2 Hypomagnesemia 08/31/2011 LAURI HERNADEZ, CORTEZ K 276.8 Hypokalemia 08/31/2011 LAURI HERNADEZ, CORTEZ K V04.81 Vaccines Prophylactic Need Against Influenza 08/31/2011 CARREON , CORTEZ K V73.81 Visit For: Screening Exam For Human Papillomavirus (hpv) 08/31/2011 CARREON , CORTEZ K V76.2 Cervical Pap Smear 08/31/2011 [...] D 276.8 Hypokalemia 08/31/2011 MORAIMA LOYA APRN D [...] APRN V76.2 Cervical Pap Smear 08/31/2011 IVÁN SCROLL SHEAR OPERATOR, TEQUILA 275.2 Hypomagnesemia 08/31/2011 IVÁN SCROLL SHEAR OPERATOR, TEQUILA 276.8 Hypokalemia 08/31/2011 IVÁN SCROLL SHEAR OPERATOR, TEQUILA V04.81 Vaccines Prophylactic Need Against Influenza 08/31/2011 IVÁN SCROLL SHEAR OPERATOR, TEQUILA V73.81 Visit For: Screening Exam For Human Papillomavirus (hpv) 08/31/2011 IVÁN SCROLL SHEAR OPERATOR, TEQUILA V76.2 Cervical Pap Smear 08/31/2011 IVÁN SCROLL SHEAR OPERATOR, TEQUILA 275.2 Hypomagnesemia 08/31/2011 IVÁN SCROLL SHEAR OPERATOR, TEQUILA 276.8 Hypokalemia 08/31/2011 IVÁN SCROLL SHEAR OPERATOR, TEQUILA V04.81 Vaccines Prophylactic Need Against Influenza 08/31/2011 IVÁN SCROLL SHEAR OPERATOR, TEQUILA V73.81 Visit For: Screening Exam For Human Papillomavirus (hpv) 08/31/2011 IVÁN SCROLL SHEAR OPERATOR, TEQUILA V76.2 Cervical Pap Smear 08/31/2011 IVÁN SCROLL SHEAR OPERATOR, TEQUILA 275.2 Hypomagnesemia 08/31/2011 IVÁN SCROLL SHEAR OPERATOR, TEQUILA 276.8 Hypokalemia 08/31/2011 IVÁN SCROLL SHEAR OPERATOR, TEQUILA V04.81 Vaccines Prophylactic Need Against Influenza 08/31/2011 IVÁN SCROLL SHEAR OPERATOR, TEQUILA V73.81 Visit For: Screening Exam For Human Papillomavirus (hpv) 08/31/2011 IVÁN SCROLL SHEAR OPERATOR, TEQUILA V76.2 Cervical Pap Smear 08/31/2011 IVÁN SCROLL SHEAR OPERATOR, TEQUILA 275.2 Hypomagnesemia 08/31/2011 IVÁN SCROLL SHEAR OPERATOR, TEQUILA 276.8 Hypokalemia 08/31/2011 IVÁN SCROLL SHEAR OPERATOR, TEQUILA V04.81 Vaccines Prophylactic Need Against Influenza 08/31/2011 IVÁN SCROLL SHEAR OPERATOR, TEQUILA V73.81 Visit For: Screening Exam For Human Papillomavirus (hpv) 08/31/2011 IVÁN SCROLL SHEAR OPERATOR, TEQUILA V76.2 Cervical Pap Smear 08/31/2011 IVÁN SCROLL SHEAR OPERATOR, TEQUILA 275.2 Hypomagnesemia 08/31/2011 IVÁN SCROLL SHEAR OPERATOR, TEQUILA 276.8 Hypokalemia 08/31/2011 IVÁN SCROLL SHEAR OPERATOR, TEQUILA V04.81 Vaccines Prophylactic Need Against Influenza 08/31/2011 IVÁN SCROLL SHEAR OPERATOR, TEQUILA V73.81 Visit For: Screening Exam For Human Papillomavirus (hpv) 08/31/2011 IVÁN SCROLL SHEAR OPERATOR, TEQUILA V76.2 Cervical Pap Smear 08/31/2011 SP SCROLL SHEAR OPERATOR, TREVER S 275.2 Hypomagnesemia 08/31/2011 SP SCROLL SHEAR OPERATOR, TREVER S 276.8 Hypokalemia 08/31/2011 SP SCROLL SHEAR OPERATOR, TREVER S V04.81 Vaccines Prophylactic Need Against Influenza 08/31/2011 SP SCROLL SHEAR OPERATOR, TREVER S V73.81 Visit For: Screening Exam For Human Papillomavirus (hpv) 08/31/2011 SP SCROLL SHEAR OPERATOR, TREVER S V76.2 Cervical Pap Smear 08/31/2011 IVÁN SCROLL SHEAR OPERATOR, TEQUILA 275.2 Hypomagnesemia 08/31/2011 IVÁN SCROLL SHEAR OPERATOR, TEQUILA 276.8 Hypokalemia 08/31/2011 IVÁN SCROLL SHEAR OPERATOR, TEQUILA V04.81 Vaccines Prophylactic Need Against Influenza 08/31/2011 IVÁN SCROLL SHEAR OPERATOR, TEQUILA V73.81 Visit For: Screening Exam For Human Papillomavirus (hpv) 08/31/2011 IVÁN SCROLL SHEAR OPERATOR, TEQUILA V76.2 Cervical Pap Smear 08/31/2011 IVÁN SCROLL SHEAR OPERATOR, TEQUILA 275.2 Hypomagnesemia 08/31/2011 IVÁN SCROLL SHEAR OPERATOR, TEQUILA 276.8 Hypokalemia 08/31/2011 IVÁN SCROLL SHEAR OPERATOR, TEQUILA V04.81 Vaccines Prophylactic Need Against Influenza 08/31/2011 IVÁN SCROLL SHEAR OPERATOR, TEQUILA V73.81 Visit For: Screening Exam For Human Papillomavirus (hpv) 08/31/2011 IVÁN SCROLL SHEAR OPERATOR, TEQUILA V76.2 Cervical Pap Smear 08/31/2011 IVÁN SCROLL SHEAR OPERATOR, TEQUILA 275.2 Hypomagnesemia 08/31/2011 IVÁN SCROLL SHEAR OPERATOR, TEQUILA 276.8 Hypokalemia 08/31/2011 IVÁN SCROLL SHEAR OPERATOR, TEQUILA V04.81 Vaccines Prophylactic Need Against Influenza 08/31/2011 IVÁN SCROLL SHEAR OPERATOR, TEQUILA V73.81 Visit For: Screening Exam For Human Papillomavirus (hpv) 08/31/2011 IVÁN SCROLL SHEAR OPERATOR, TEQUILA V76.2 Cervical Pap Smear 08/31/2011 SP SCROLL SHEAR OPERATOR, TREVER S 275.2 Hypomagnesemia 08/31/2011 SP SCROLL SHEAR OPERATOR, TREVER S 276.8 Hypokalemia 08/31/2011 SP SCROLL SHEAR OPERATOR, TREVER S V04.81 Vaccines Prophylactic Need Against Influenza 08/31/2011 SP SCROLL SHEAR OPERATOR, TREVER S V73.81 Visit For: Screening Exam For Human Papillomavirus (hpv) 08/31/2011 SP SCROLL SHEAR OPERATOR, TREVER S V76.2 Cervical Pap Smear 08/31/2011 IVÁN SCROLL SHEAR OPERATOR, TEQUILA 275.2 Hypomagnesemia 08/31/2011 IVÁN SCROLL SHEAR OPERATOR, TEQUILA 276.8 Hypokalemia 08/31/2011 IVÁN SCROLL SHEAR OPERATOR, TEQUILA V04.81 Vaccines Prophylactic Need Against Influenza 08/31/2011 IVÁN SCROLL SHEAR OPERATOR, TEQUILA V73.81 Visit For: Screening Exam For Human Papillomavirus (hpv) 08/31/2011 IVÁN SCROLL SHEAR OPERATOR, TEQUILA V76.2 Cervical Pap Smear 09/14/2011 Ot 682.3 01/30/2012 CARREON DO, CORTEZ K 455.6 HEMORRHOIDS NOS 01/30/2012 455.6 HEMORRHOIDS NOS 01/30/2012 CARREON DO, CORTEZ K 455.6 HEMORRHOIDS NOS 01/30/2012 CARROEN DO, CORTEZ K 455.6 HEMORRHOIDS NOS 01/30/2012 MORAIMA LOYA APRN 455.6 HEMORRHOIDS NOS 01/30/2012 LYNDSAY RASHEED MD 455.6 HEMORRHOIDS NOS 01/30/2012 MORAIMA LOYA APRN 455.6 HEMORRHOIDS NOS 01/30/2012 455.6 HEMORRHOIDS NOS 01/30/2012 MORAIMA LOYA APRN 455.6 HEMORRHOIDS NOS 01/30/2012 MORAIMA LOYA APRN 455.6 HEMORRHOIDS NOS 01/30/2012 IVÁN SCROLL SHEAR OPERATOR, TEQUILA 455.6 HEMORRHOIDS NOS 01/30/2012 IVÁN SCROLL SHEAR OPERATOR, TEQUILA 455.6 HEMORRHOIDS NOS 01/30/2012 IVÁN SCROLL SHEAR OPERATOR, TEQUILA 455.6 HEMORRHOIDS NOS 01/30/2012 IVÁN SCROLL SHEAR OPERATOR, TEQUILA 455.6 HEMORRHOIDS NOS 01/30/2012 IVÁN SCROLL SHEAR OPERATOR, TEQUILA 455.6 HEMORRHOIDS NOS 01/30/2012 SP SCROLL SHEAR OPERATOR, TREVER S 455.6 HEMORRHOIDS NOS 01/30/2012 IVÁN SCROLL SHEAR OPERATOR, TEQUILA 455.6 HEMORRHOIDS NOS 01/30/2012 IVÁN SCROLL SHEAR OPERATOR, TEQUILA 455.6 HEMORRHOIDS NOS 01/30/2012 IVÁN SCROLL SHEAR OPERATOR, TEQUILA 455.6 HEMORRHOIDS NOS 01/30/2012 SP SCROLL SHEAR OPERATOR, TREVER S 455.6 HEMORRHOIDS NOS 01/30/2012 IVÁN SCROLL SHEAR OPERATOR, TEQUILA 455.6 HEMORRHOIDS NOS 03/30/2012 CARREON DO, CORTEZ K 528.6 ORAL LEUKOPLAKIA 03/30/2012 528.6 ORAL LEUKOPLAKIA 03/30/2012 CARERON DO, CORTEZ K 528.6 ORAL LEUKOPLAKIA 03/30/2012 CARREON DO, CORTEZ K 528.6 ORAL LEUKOPLAKIA 03/30/2012 MORAIMA LOYA APRN 528.6 ORAL LEUKOPLAKIA 03/30/2012 LYNDSAY RASHEED MD 528.6 ORAL LEUKOPLAKIA 03/30/2012 MORAIMA LOYA APRN 528.6 ORAL LEUKOPLAKIA 03/30/2012 528.6 ORAL LEUKOPLAKIA 03/30/2012 MORAIMA LOYA APRN 528.6 ORAL LEUKOPLAKIA 03/30/2012 MORAIMA LOYA APRN 528.6 ORAL LEUKOPLAKIA 03/30/2012 IVÁN SCROLL SHEAR OPERATOR, TEQUILA 528.6 ORAL LEUKOPLAKIA 03/30/2012 IVÁN SCROLL SHEAR OPERATOR, TEQUILA 528.6 ORAL LEUKOPLAKIA 03/30/2012 IVÁN SCROLL SHEAR OPERATOR, TEQUILA 528.6 ORAL LEUKOPLAKIA 03/30/2012 IVÁN SCROLL SHEAR OPERATOR, TEQUILA 528.6 ORAL LEUKOPLAKIA 03/30/2012 IVÁN SCROLL SHEAR OPERATOR, TEQUILA 528.6 ORAL LEUKOPLAKIA 03/30/2012 TREVER SNOWDEN APRN S 528.6 ORAL LEUKOPLAKIA 03/30/2012 IVÁN SCROLL SHEAR OPERATOR, TEQUILA 528.6 ORAL LEUKOPLAKIA 03/30/2012 IVÁNFITZ HARRIS TEQUILA 528.6 ORAL LEUKOPLAKIA 03/30/2012 IVÁN SCROLL SHEAR OPERATOR, TEQUILA 528.6 ORAL LEUKOPLAKIA 03/30/2012 TREVER SNOWDEN APRN S 528.6 ORAL LEUKOPLAKIA 03/30/2012 IVÁN SCROLL SHEAR OPERATOR, TEQUILA 528.6 ORAL LEUKOPLAKIA 06/06/2012 CORTEZ CARREON [...] LOYA APRN 780.8 GENERALIZED HYPERHIDROSIS 06/06/2012 IVÁN SCROLL SHEAR OPERATOR, TEQUILA 780.8 GENERALIZED HYPERHIDROSIS 06/06/2012 IVÁN SCROLL SHEAR OPERATOR, TEQUILA 780.8 GENERALIZED HYPERHIDROSIS 06/06/2012 IVÁN SCROLL SHEAR OPERATOR, TEQUILA 780.8 GENERALIZED HYPERHIDROSIS 06/06/2012 IVÁN SCROLL SHEAR OPERATOR, TEQUILA 780.8 GENERALIZED HYPERHIDROSIS 06/06/2012 IVÁN SCROLL SHEAR OPERATOR, TEQUILA 780.8 GENERALIZED HYPERHIDROSIS 06/06/2012 SP SCROLL SHEAR OPERATOR, TREVER S 780.8 GENERALIZED HYPERHIDROSIS 06/06/2012 IVÁN SCROLL SHEAR OPERATOR, TEQUILA 780.8 GENERALIZED HYPERHIDROSIS 06/06/2012 IVÁN SCROLL SHEAR OPERATOR, TEQUIAL 780.8 GENERALIZED HYPERHIDROSIS 06/06/2012 IVÁN SCROLL SHEAR OPERATOR, TEQUILA 780.8 GENERALIZED HYPERHIDROSIS 06/06/2012 SP SCROLL SHEAR OPERATOR, TREVER S 780.8 GENERALIZED HYPERHIDROSIS 06/06/2012 IVÁN SCROLL SHEAR OPERATOR, TEQUILA 780.8 GENERALIZED HYPERHIDROSIS 08/01/2012 CARREON DO, [...] AND VERTIGO 08/01/2012 788.1 DYSURIA 08/01/2012 GARTON SCROLL SHEAR OPERATOR, MORAIMA D 780.4 DIZZINESS AND VERTIGO 08/01/2012 GARTON SCROLL SHEAR OPERATOR, MORAIMA D 788.1 DYSURIA 08/01/2012 GARTON SCROLL SHEAR OPERATOR, MORAIMA D 780.4 DIZZINESS AND VERTIGO 08/01/2012 GARTON SCROLL SHEAR OPERATOR, MORAIMA D 788.1 DYSURIA 08/01/2012 IVÁN SCROLL SHEAR OPERATOR, TEQUILA 780.4 DIZZINESS AND VERTIGO 08/01/2012 IVÁN SCROLL SHEAR OPERATOR, TEQUILA 788.1 DYSURIA 08/01/2012 IVÁN SCROLL SHEAR OPERATOR, TEQUILA 780.4 DIZZINESS AND VERTIGO 08/01/2012 IVÁN SCROLL SHEAR OPERATOR, TEQUILA 788.1 DYSURIA 08/01/2012 IVÁN SCROLL SHEAR OPERATOR, TEQUILA 780.4 DIZZINESS AND VERTIGO 08/01/2012 IVÁN SCROLL SHEAR OPERATOR, TEQUILA 788.1 DYSURIA 08/01/2012 IVÁN SCROLL SHEAR OPERATOR, TEQUILA 780.4 DIZZINESS AND VERTIGO 08/01/2012 IVÁN SCROLL SHEAR OPERATOR, TEQUILA 788.1 DYSURIA 08/01/2012 IVÁN SCROLL SHEAR OPERATOR, TEQUILA 780.4 DIZZINESS AND VERTIGO 08/01/2012 IVÁN SCROLL SHEAR OPERATOR, TEQUILA 788.1 DYSURIA 08/01/2012 SP SCROLL SHEAR OPERATOR, TREVER S 780.4 DIZZINESS AND VERTIGO 08/01/2012 SP SCROLL SHEAR OPERATOR, TREVER S 788.1 DYSURIA 08/01/2012 IVÁN SCROLL SHEAR OPERATOR, TEQUILA 780.4 DIZZINESS AND VERTIGO 08/01/2012 IVÁN SCROLL SHEAR OPERATOR, TEQUILA 788.1 DYSURIA 08/01/2012 IVÁN SCROLL SHEAR OPERATOR, TEQUILA 780.4 DIZZINESS AND VERTIGO 08/01/2012 IVÁN SCROLL SHEAR OPERATOR, TEQUILA 788.1 DYSURIA 08/01/2012 IVÁN SCROLL SHEAR OPERATOR, TEQUILA 780.4 DIZZINESS AND VERTIGO 08/01/2012 IVÁN SCROLL SHEAR OPERATOR, TEQUILA 788.1 DYSURIA 08/01/2012 SP SCROLL SHEAR OPERATOR, TREVER S 780.4 DIZZINESS AND VERTIGO 08/01/2012 SP SCROLL SHEAR OPERATOR, TREVER S 788.1 DYSURIA 08/01/2012 IVÁN SCROLL SHEAR OPERATOR, TEQUILA 780.4 DIZZINESS AND VERTIGO 08/01/2012 TEQUILA MINOR APRN 788.1 DYSURIA 10/24/2012 LAURI HERNADEZ, CORTEZ K 705.83 HIDRADENITIS 10/24/2012 CARREON DO, [...] APRN V76.10 BREAST CANCER SCREENING 10/24/2012 IVÁN SCROLL SHEAR OPERATOR, TEQUILA V76.2 CERVICAL CANCER SCREENING (PAP SMEAR) 10/24/2012 IVÁN SCROLL SHEAR OPERATOR, TEQUILA 705.83 HIDRADENITIS 10/24/2012 IVÁN SCROLL SHEAR OPERATOR, TEQUILA V76.10 BREAST CANCER SCREENING 10/24/2012 IVÁN SCROLL SHEAR OPERATOR, TEQUILA V76.2 CERVICAL CANCER SCREENING (PAP SMEAR) 10/24/2012 IVÁN SCROLL SHEAR OPERATOR, TEQUILA 705.83 HIDRADENITIS 10/24/2012 IVÁN SCROLL SHEAR OPERATOR, TEQUILA V76.10 BREAST CANCER SCREENING 10/24/2012 IVÁN SCROLL SHEAR OPERATOR, TEQUILA V76.2 CERVICAL CANCER SCREENING (PAP SMEAR) 10/24/2012 IVÁN SCROLL SHEAR OPERATOR, TEQUILA 705.83 HIDRADENITIS 10/24/2012 IVÁN SCROLL SHEAR OPERATOR, TEQUILA V76.10 BREAST CANCER SCREENING 10/24/2012 IVÁN SCROLL SHEAR OPERATOR, TEQUILA V76.2 CERVICAL CANCER SCREENING (PAP SMEAR) 10/24/2012 IVÁN SCROLL SHEAR OPERATOR, TEQUILA 705.83 HIDRADENITIS 10/24/2012 IVÁN SCROLL SHEAR OPERATOR, TEQUILA V76.10 BREAST CANCER SCREENING 10/24/2012 IVÁN SCROLL SHEAR OPERATOR, TEQUILA V76.2 CERVICAL CANCER SCREENING (PAP SMEAR) 10/24/2012 SP HARRIS, TREVER S 705.83 HIDRADENITIS 10/24/2012 SP HARRIS, TREVER S V76.10 BREAST CANCER SCREENING 10/24/2012 SP HARRIS, TREVER S V76.2 CERVICAL CANCER SCREENING (PAP SMEAR) 10/24/2012 IVÁN SCROLL SHEAR OPERATOR, TEQUILA 705.83 HIDRADENITIS 10/24/2012 IVÁN SCROLL SHEAR OPERATOR, TEQUILA V76.10 BREAST CANCER SCREENING 10/24/2012 IVÁN SCROLL SHEAR OPERATOR, TQEUILA V76.2 CERVICAL CANCER SCREENING (PAP SMEAR) 10/24/2012 IVÁN SCROLL SHEAR OPERATOR, TEQUILA 705.83 HIDRADENITIS 10/24/2012 IVÁN SCROLL SHEAR OPERATOR, TEQUILA V76.10 BREAST CANCER SCREENING 10/24/2012 IVÁN SCROLL SHEAR OPERATOR, TEQUILA V76.2 CERVICAL CANCER SCREENING (PAP SMEAR) 10/24/2012 IVÁN SCROLL SHEAR OPERATOR, TEQUILA 705.83 HIDRADENITIS 10/24/2012 IVÁN SCROLL SHEAR OPERATOR, TEQUILA V76.10 BREAST CANCER SCREENING 10/24/2012 TEQUILA MINOR APRN V76.2 CERVICAL CANCER SCREENING (PAP SMEAR) 10/24/2012 TREVER SNOWDEN APRN S 705.83 HIDRADENITIS 10/24/2012 RTEVER SNOWDEN APRN S V76.10 BREAST CANCER SCREENING [...] AN PANIC DIS W AGORA 07/06/2013 IVÁN SCROLL SHEAR OPERATOR, TEQUILA 296.33 MO DEPRESSIVE RECURRENT SEVERE W/O PSYCHOTIC BEHAVIOR 07/06/2013 IVÁN HARRIS TEQUILA 300.21 AN PANIC DIS W AGORA 07/06/2013 IVÁN SCROLL SHEAR OPERATOR, TEQUILA 296.33 MO DEPRESSIVE RECURRENT SEVERE W/O PSYCHOTIC BEHAVIOR 07/06/2013 IVÁN HARRIS TEQUILA 300.21 AN PANIC DIS W AGORA 07/06/2013 IVÁN SCROLL SHEAR OPERATOR, TEQUILA 296.33 MO DEPRESSIVE RECURRENT SEVERE W/O PSYCHOTIC BEHAVIOR 07/06/2013 IVÁN SCROLL SHEAR OPERATOR, TEQUILA 300.21 AN PANIC DIS W AGORA 07/06/2013 SP HARRIS TREVER S 296.33 MO DEPRESSIVE RECURRENT SEVERE W/O PSYCHOTIC BEHAVIOR 07/06/2013 SP HARRIS TREVER S 300.21 AN PANIC DIS W AGORA 07/06/2013 IVÁN HARRIS TEQUILA 296.33 MO DEPRESSIVE RECURRENT SEVERE W/O PSYCHOTIC BEHAVIOR 07/06/2013 IVÁN HARRIS TEQUILA 300.21 AN PANIC DIS W AGORA 07/06/2013 IVÁN SCROLL SHEAR OPERATOR, TEQUILA 296.33 MO DEPRESSIVE RECURRENT SEVERE W/O PSYCHOTIC BEHAVIOR 07/06/2013 IVÁN HARRIS TEQUILA 300.21 AN PANIC DIS W AGORA 07/06/2013 IVÁN SCROLL SHEAR OPERATOR, TEQUILA 296.33 MO DEPRESSIVE RECURRENT SEVERE W/O [...] MORAIMA LOYA APRN 780.79 fatigue 08/15/2013 IVÁN SCROLL SHEAR OPERATOR, TEQUILA 780.79 fatigue 08/15/2013 IVÁN SCROLL SHEAR OPERATOR, TEQUILA 780.79 fatigue 08/15/2013 IVÁN SCROLL SHEAR OPERATOR, TEQUILA 780.79 FATIGUE 08/15/2013 IVÁN SCROLL SHEAR OPERATOR, TEQUILA 780.79 FATIGUE 08/15/2013 IVÁN SCROLL SHEAR OPERATOR, TEQUILA 780.79 FATIGUE 08/15/2013 SP SCROLL SHEAR OPERATOR, TREVER S 780.79 FATIGUE 08/15/2013 IVÁN SCROLL SHEAR OPERATOR, TEQUILA 780.79 FATIGUE 08/15/2013 IVÁN SCROLL SHEAR OPERATOR, TEQUILA 780.79 FATIGUE 08/15/2013 IVÁN SCROLL SHEAR OPERATOR, TEQUILA 780.79 FATIGUE 08/15/2013 SP SCROLL SHEAR OPERATOR, TREVER S 780.79 FATIGUE 08/15/2013 IVÁN SCROLL SHEAR OPERATOR, TEQUILA 780.79 FATIGUE 04/26/2014 IVÁN SCROLL SHEAR OPERATOR, TEQUILA 296.32 MO DEPRESSIVE RECURRENT MODERATE 04/26/2014 IVÁN SCROLL SHEAR OPERATOR, TEQUILA 296.32 MO DEPRESSIVE RECURRENT MODERATE 04/26/2014 IVÁN SCROLL SHEAR OPERATOR, TEQUILA 296.32 MO DEPRESSIVE RECURRENT MODERATE 04/26/2014 IVÁN SCROLL SHEAR OPERATOR, TEQUILA 296.32 MO DEPRESSIVE RECURRENT MODERATE 04/26/2014 IVÁN SCROLL SHEAR OPERATOR, TEQUILA 296.32 MO DEPRESSIVE RECURRENT MODERATE 04/26/2014 SP SCROLL SHEAR OPERATOR, TREVER S 296.32 MO DEPRESSIVE RECURRENT MODERATE 04/26/2014 IVÁN SCROLL SHEAR OPERATOR, TEQUILA 296.32 MO DEPRESSIVE RECURRENT MODERATE 04/26/2014 IVÁN SCROLL SHEAR OPERATOR, TEQUILA 296.32 MO DEPRESSIVE RECURRENT MODERATE 04/26/2014 IVÁN SCROLL SHEAR OPERATOR, TEQUILA 296.32 MO DEPRESSIVE RECURRENT MODERATE 04/26/2014 SP SCROLL SHEAR OPERATOR, TREVER S 296.32 MO DEPRESSIVE RECURRENT MODERATE 04/26/2014 IVÁN SCROLL SHEAR OPERATOR, TEQUILA 296.32 MO DEPRESSIVE RECURRENT MODERATE 09/25/2014 IVÁN SCROLL SHEAR OPERATOR, TEQUILA 723.1 PAIN NECK 09/25/2014 IVÁN SCROLL SHEAR OPERATOR, TEQUILA 724.1 PAIN IN THORACIC SPINE 09/25/2014 SP SCROLL SHEAR OPERATOR, TREVER S 723.1 PAIN NECK 09/25/2014 SP SCROLL SHEAR OPERATOR, TREVER S 724.1 PAIN IN THORACIC SPINE 09/25/2014 IVÁN SCROLL SHEAR OPERATOR, TEQUILA 723.1 PAIN NECK 09/25/2014 IVÁN SCROLL SHEAR OPERATOR, TEQUILA 724.1 PAIN IN THORACIC SPINE 09/25/2014 IVÁN SCROLL SHEAR OPERATOR, TEQUILA 723.1 PAIN NECK 09/25/2014 IVÁN SCROLL SHEAR OPERATOR, TEQUILA 724.1 PAIN IN THORACIC SPINE 09/25/2014 IVÁN SCROLL SHEAR OPERATOR, TEQUILA 723.1 PAIN NECK 09/25/2014 IVÁN SCROLL SHEAR OPERATOR, TEQUILA 724.1 PAIN IN THORACIC SPINE 09/25/2014 SP SCROLL SHEAR OPERATOR, TREVER S 723.1 PAIN NECK 09/25/2014 SP SCROLL SHEAR OPERATOR, TREVER S 724.1 PAIN IN THORACIC SPINE 09/25/2014 IVÁN SCROLL SHEAR OPERATOR, TEQUILA 723.1 PAIN NECK 09/25/2014 IVÁN SCROLL SHEAR OPERATOR, TEQUILA 724.1 PAIN IN THORACIC SPINE 10/14/2014 ANT HERNADEZ HOA K Ot 465.9 10/14/2014 ANT HERNADEZ HOA K Ot 466.0 10/19/2014 TREVER SNOWDEN OIL AND GAS RECRUITER Ot V76.12 10/30/2014 TREVER SNOWDEN OIL AND GAS RECRUITER Ot V76.12 11/27/2014 IVÁN SCROLL SHEAR OPERATOR, TEQUILA 783.1 WEIGHT GAIN ABNORMAL 11/27/2014 SAMANTHA SNOWDEN APRNNDA S 783.1 WEIGHT GAIN ABNORMAL 11/27/2014 IVÁN SCROLL SHEAR OPERATOR, TEQUILA 783.1 WEIGHT GAIN ABNORMAL 01/01/2015 SAMANTHA SNOWDEN APRNNDA S 780.60 FEVER, UNSPECIFIED 01/01/2015 SAMANTHA SNOWDEN APRNNDA S 786.2 COUGH 01/01/2015 IVÁN SCROLL SHEAR OPERATOR, TEQUILA 780.60 FEVER, UNSPECIFIED 01/01/2015 IVÁN SCROLL SHEAR OPERATOR, TEQUILA 786.2 COUGH 01/06/2015 BAYLEE WEBSTER, LEEANN Simms Ot 305.1 01/06/2015 BAYLEE WEBSTER, LEEANN Simms Ot 490 01/06/2015 BAYLEE WEBSTER, LEEANN Simms Ot 729.1 01/06/2015 BAYLEE WEBSTER, LEEANN Simms Ot 729.82 03/21/2015 Ot 780.1 03/21/2015 Ot 781.1 07/11/2015 KATHYA WEBSTER, LYNDSAY F Ot 041.49 07/11/2015 KATHYA WEBSTER, LYNDSAY Negron Ot 276.51 07/11/2015 KATHYA WEBSTER, LYNDSAY F Ot 276.8 07/11/2015 KATHYA WEBSTER, LYNDSAY F Ot 305.1 07/11/2015 KATHYA WEBSTER, LYNDSAY Negron Ot 403.90 07/11/2015 KATHYA WEBSTER, LYNDSAY F Ot 558.9 07/11/2015 KATHYA WEBSTER, LYNDSAY F Ot 584.9 07/11/2015 KATHYA WEBSTER, LYNDSAY F Ot 585.9 07/11/2015 KATHYA WEBSTER, LYNDSAY Negron Ot 599.0 07/11/2015 KATHYA WEBSTRE, LYNDSAY F Ot B96.20 07/11/2015 KATHYA WEBSTER, LYNDSAY F Ot E86.0 07/11/2015 KATHYA WEBSTER, LYNDSAY F Ot E87.6 07/11/2015 KATHYA WEBSTER, LYNDSAY Negron Ot F17.210 07/11/2015 KATHYA WEBSTER, LYNDSAY F Ot I12.9 07/11/2015 KATHYA WEBSTER, LYNDSAY Negron [...] MULT SITE W 01/31/2016 Ot Z79.899 OTHER CHANNEL REBUILDER (CURRENT) DRUG THERAPY 02/07/2016 Ot M05.79 RHEU ARTHRITIS W RHEU FACTOR MULT SITE W 02/07/2016 Ot Z79.899 OTHER JAIL (CURRENT) DRUG THERAPY 05/14/2016 CHRIS EWBSTER, GLENN Sims Ot E78.5 HYPERLIPIDEMIA, UNSPECIFIED 05/14/2016 GLENN PEREZ MD Ot E87.6 HYPOKALEMIA 05/14/2016 GLENN PEREZ MD Ot F17.210 NICOTINE DEPENDENCE, CIGARETTES, UNCOMPL 05/14/2016 GLENN PEREZ MD Ot G62.9 POLYNEUROPATHY, UNSPECIFIED 05/14/2016 GLENN PEREZ MD Ot I10 ESSENTIAL (PRIMARY) HYPERTENSION 05/14/2016 GLENN PEREZ MD Ot I25.10 ATHSCL HEART DISEASE OF [place] CORONARY 05/14/2016 GLENN PEREZ MD Ot M06.9 RHEUMATOID ARTHRITIS, UNSPECIFIED 05/14/2016 GLENN PEREZ MD Ot N39.0 URINARY TRACT INFECTION, SITE NOT SPECIF 05/14/2016 GLENN PEREZ MD Ot R00.0 TACHYCARDIA, UNSPECIFIED 05/14/2016 GLENN PEREZ MD Ot R11.0 NAUSEA 05/14/2016 GLENN PEREZ MD Ot R19.7 DIARRHEA, UNSPECIFIED 09/23/2016 TREVER SNOWDENP Ot Z12.39 ENCOUNTER FOR OTH SCREENING FOR MALIGNAN 09/23/2016 TREVER SNOWDEN OIL AND GAS RECRUITER Ot Z12.31 ENCNTR SCREEN MAMMOGRAM FOR MALIGNANT NE 10/20/2016 TREVER SNOWDEN OIL AND GAS RECRUITER Ot Z12.31 ENCNTR SCREEN MAMMOGRAM FOR MALIGNANT NE 10/26/2016 TREVER SNOWDEN OIL AND GAS RECRUITER Ot Z12.31 ENCNTR SCREEN MAMMOGRAM FOR MALIGNANT NE 10/26/2016 TREVER SNOWDEN OIL AND GAS RECRUITER Ot Z12.31 ENCNTR SCREEN MAMMOGRAM FOR MALIGNANT NE 10/28/2016 TREVER SNOWDEN OIL AND GAS RECRUITER Ot Z12.31 ENCNTR SCREEN MAMMOGRAM FOR MALIGNANT NE 01/29/2017 ANGIE LASSITER Ot I10 ESSENTIAL (PRIMARY) HYPERTENSION 01/29/2017 ANGIE LASSITER Ot I25.10 ATHSCL HEART DISEASE OF [place] CORONARY 01/29/2017 ANGIE LASSITER Ot K21.9 GASTRO-ESOPHAGEAL REFLUX DISEASE WITHOUT 01/29/2017 ANGIE LASSITER Ot R55 SYNCOPE AND COLLAPSE 02/22/2017 ANGIE LASSITER Ot I10 ESSENTIAL (PRIMARY) HYPERTENSION 02/22/2017 ANGIE LASSITER Ot I25.10 ATHSCL HEART DISEASE OF [place] CORONARY 02/22/2017 ANGIE LASSITER Ot K21.9 GASTRO-ESOPHAGEAL REFLUX DISEASE WITHOUT 02/22/2017 ANGIE LASSITER Ot R55 SYNCOPE AND COLLAPSE 03/08/2017 ANGIE LASSITER Ot I10 ESSENTIAL (PRIMARY) HYPERTENSION 03/08/2017 ANGIE LASSITER Ot I25.10 ATHSCL HEART DISEASE OF [place] CORONARY 03/08/2017 ANGIE LASSITER Ot K21.9 GASTRO-ESOPHAGEAL [...] MD, Ot I25.10 ATHSCL HEART DISEASE OF [place] CORONARY 03/31/2017 ORLANDO HOFFMAN MD, Ot J45.909 UNSPECIFIED ASTHMA, UNCOMPLICATED 03/31/2017 ORLANDO HOFFMAN MD, Ot K21.9 GASTRO-ESOPHAGEAL REFLUX DISEASE WITHOUT 03/31/2017 ORLANDO HOFFMAN MD, Ot M06.9 RHEUMATOID ARTHRITIS, UNSPECIFIED 03/31/2017 ORLANDO HOFFMAN MD, Ot M19.90 UNSPECIFIED OSTEOARTHRITIS, UNSPECIFIED 03/31/2017 ORLANDO HOFFMAN MD Ot M75.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 03/31/2017 ORLANDO HOFFMAN MD, Ot M81.0 AGE-RELATED OSTEOPOROSIS W/O CURRENT PAT 03/31/2017 ORLANDO HOFFMAN MD, Ot Z11.2 ENCOUNTER FOR SCREENING FOR OTHER BACTER 03/31/2017 ORLANDO HOFFMAN MD, Ot Z79.899 OTHER JAIL (CURRENT) DRUG THERAPY 03/31/2017 ORLANDO HOFFMAN MD, [...] SLEEP APNEA (ADULT) (PEDIATR 04/06/2017 ORLANDO HOFFMAN MD Ot I10 ESSENTIAL (PRIMARY) HYPERTENSION 04/06/2017 ORLANDO HOFFMAN MD, Ot I25.10 ATHSCL HEART DISEASE OF [place] CORONARY 04/06/2017 ORLANDO HOFFMAN MD, Ot J45.909 [...] 04/06/2017 ORLANDO HOFFMAN MD, Ot Z79.899 OTHER CHANNEL REBUILDER (CURRENT) DRUG THERAPY 04/06/2017 ORLANDO HOFFMAN MD, Ot Z86.73 PRSNL HX OF TIA (TIA), AND CEREB INFRC W 04/06/2017 ORLANDO HOFFMAN MD, Ot Z87.891 PERSONAL HISTORY OF NICOTINE DEPENDENCE 05/10/2017 CHELSI CORDOBA MD Ot E78.5 HYPERLIPIDEMIA, UNSPECIFIED 05/10/2017 MICHAEL CORDOBA MDIC E Ot F17.210 NICOTINE DEPENDENCE, CIGARETTES, UNCOMPL 05/10/2017 CHELSI CORDOBA MD Ot F32.9 MAJOR DEPRESSIVE DISORDER, SINGLE EPISOD 05/10/2017 CHELSI CORDOBA MD Ot G47.30 SLEEP APNEA, UNSPECIFIED 05/10/2017 CHELSI CORDOBA MD E Ot I10 ESSENTIAL (PRIMARY) HYPERTENSION 05/10/2017 CHELSI [...] E Ot M06.9 RHEUMATOID ARTHRITIS, UNSPECIFIED 05/10/2017 MICHAEL CORDOBA MDIC E Ot M19.91 PRIMARY OSTEOARTHRITIS, UNSPECIFIED SITE [...] UNSPECIFIED AFFECTING LEFT N 08/26/2017 GLENN PEREZ MD Ot I10 ESSENTIAL (PRIMARY) HYPERTENSION 08/26/2017 GLENN PEREZ MD, Ot 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 08/26/2017 GLENN PEREZ MD, Ot I69.354 HEMIPLGA FOLLOWING CEREBRAL INFRC AFFECT [...] Ot M54.9 DORSALGIA, UNSPECIFIED 08/26/2017 GLENN PEREZ MD, Ot R32 UNSPECIFIED URINARY INCONTINENCE 08/26/2017 GLENN PEREZ MD, Ot R47.81 SLURRED SPEECH 08/26/2017 GLENN PEERZ MD, Ot Z68.34 BODY MASS INDEX (BMI) 34.0-34.9, ADULT 08/26/2017 GLENN PEREZ MD, Ot Z96.0 PRESENCE OF UROGENITAL IMPLANTS 08/26/2017 GLENN PEREZ MD, Ot E66.01 MORBID (SEVERE) OBESITY DUE TO EXCESS CA 08/26/2017 GLENN PEREZ MD, Ot E78.00 PURE HYPERCHOLESTEROLEMIA, UNSPECIFIED 08/26/2017 GLENN PEREZ MD, Ot E78.5 HYPERLIPIDEMIA, UNSPECIFIED 08/26/2017 GLENN PEREZ MD, Ot E87.6 HYPOKALEMIA 08/26/2017 GLENN PEREZ MD, [...] UNSPECIFIED AFFECTING LEFT N 08/26/2017 GLENN PEREZ MD Ot I10 ESSENTIAL (PRIMARY) HYPERTENSION 08/26/2017 GLENN [...] PRIMARY OSTEOARTHRITIS, UNSPECIFIED SITE 08/26/2017 GLENN PEREZ MD Ot M54.9 DORSALGIA, UNSPECIFIED 08/26/2017 GLENN PEREZ MD Ot R32 UNSPECIFIED URINARY INCONTINENCE 08/26/2017 GLENN PEREZ MD Ot R47.81 SLURRED SPEECH 08/26/2017 GLENN PEREZ MD Ot Z68.34 BODY MASS INDEX (BMI) 34.0-34.9, ADULT 08/26/2017 GLENN PEREZ MD, Ot Z96.0 PRESENCE OF UROGENITAL IMPLANTS 08/31/2017 CHELSI CORDOBA MD Ot E66.9 OBESITY, UNSPECIFIED 08/31/2017 CHELSI CORDOBA MD Ot E78.5 HYPERLIPIDEMIA, UNSPECIFIED 08/31/2017 CHELSI CORDOBA MD Ot F17.210 NICOTINE DEPENDENCE, CIGARETTES, UNCOMPL 08/31/2017 CHELSI CORDOBA MD E Ot F32.9 MAJOR DEPRESSIVE DISORDER, SINGLE EPISOD 08/31/2017 CHELSI CORDOBA MD Ot F41.9 ANXIETY DISORDER, UNSPECIFIED 08/31/2017 CHELSI CORDOBA MD E Ot I10 ESSENTIAL (PRIMARY) HYPERTENSION 08/31/2017 CHELSI CORDOBA MD E Ot I69.354 HEMIPLGA FOLLOWING CEREBRAL INFRC AFFECT 08/31/2017 CHELSI CORDOBA MD Ot J44.9 CHRONIC OBSTRUCTIVE PULMONARY DISEASE, U 08/31/2017 CHELSI CORDOBA MD E Ot K21.9 GASTRO-ESOPHAGEAL REFLUX DISEASE WITHOUT 08/31/2017 CHELSI CORDOBA MD E Ot M06.9 RHEUMATOID ARTHRITIS, UNSPECIFIED 08/31/2017 CHELSI CORDOBA MD E Ot R32 UNSPECIFIED URINARY INCONTINENCE 08/31/2017 CHELSI CORDOBA MD E Ot Z68.35 BODY MASS INDEX (BMI) 35.0-35.9, ADULT 09/01/2017 CHELSI CORDOBA MD Ot E66.9 OBESITY, UNSPECIFIED 09/01/2017 CHELSI CORDOBA MD E Ot E78.5 HYPERLIPIDEMIA, UNSPECIFIED 09/01/2017 CHELSI CORDOBA MD E Ot F17.210 NICOTINE DEPENDENCE, CIGARETTES, UNCOMPL 09/01/2017 CHELSI CORDOBA MD Ot F32.9 MAJOR DEPRESSIVE DISORDER, SINGLE EPISOD 09/01/2017 CHELSI CORDOBA MD E Ot F41.9 ANXIETY DISORDER, UNSPECIFIED 09/01/2017 CHELSI CORDOBA MD E Ot I10 ESSENTIAL (PRIMARY) HYPERTENSION 09/01/2017 CHELSI CORDOBA MD E Ot I69.354 HEMIPLGA FOLLOWING CEREBRAL INFRC AFFECT 09/01/2017 CHELSI CORDOBA MD E Ot J44.9 CHRONIC OBSTRUCTIVE PULMONARY DISEASE, U 09/01/2017 CHELSI CORDOBA MD E Ot K21.9 GASTRO-ESOPHAGEAL REFLUX DISEASE WITHOUT 09/01/2017 CHELSI OCRDOBA MD E Ot M06.9 RHEUMATOID ARTHRITIS, UNSPECIFIED 09/01/2017 CHELSI CORDOBA MD E Ot R32 UNSPECIFIED URINARY INCONTINENCE 09/01/2017 CHELSI CORDOBA MD E Ot Z68.35 BODY MASS INDEX (BMI) 35.0-35.9, ADULT 12/14/2017 HANSA WEBSTER, TATIANA Rivera N39.0 Urinary tract infection, site not specified 12/23/2017 NADIYA SCOTT MD Ot E78.5 HYPERLIPIDEMIA, UNSPECIFIED 12/23/2017 NADIYA SCOTT MD Ot F17.210 NICOTINE DEPENDENCE, CIGARETTES, UNCOMPL 12/23/2017 NADIYA SCOTT MD Ot I10 ESSENTIAL (PRIMARY) HYPERTENSION 12/23/2017 NADIYA SCOTT MD Ot I25.10 ATHSCL HEART DISEASE OF [place] CORONARY 12/23/2017 NADIYA SCOTT MD Ot I48.0 PAROXYSMAL ATRIAL FIBRILLATION 12/23/2017 NADIYA SCOTT MD Ot I65.29 OCCLUSION AND STENOSIS OF UNSPECIFIED CA 12/23/2017 NADIYA SCOTT MD Ot I73.9 PERIPHERAL VASCULAR DISEASE, UNSPECIFIED 12/23/2017 NADIYA SCOTT MD Ot R07.9 CHEST PAIN, UNSPECIFIED 12/23/2017 NADIYA SCOTT MD Ot R55 SYNCOPE AND COLLAPSE 12/23/2017 NADIYA SCOTT MD Ot Z86.73 PRSNL HX OF TIA (TIA), AND CEREB INFRC W 01/11/2018 NADIYA SCOTT MD Ot E78.5 HYPERLIPIDEMIA, UNSPECIFIED 01/11/2018 NADIYA SCOTT MD Ot F17.210 NICOTINE DEPENDENCE, CIGARETTES, UNCOMPL 01/11/2018 NADIYA SCOTT MD Ot I10 ESSENTIAL (PRIMARY) HYPERTENSION 01/11/2018 NADIYA SCOTT MD Ot I25.10 ATHSCL HEART DISEASE OF [place] CORONARY 01/11/2018 NADIYA SCOTT MD Ot I48.0 PAROXYSMAL ATRIAL FIBRILLATION 01/11/2018 NADIYA SCOTT MD Ot I65.29 OCCLUSION AND STENOSIS OF UNSPECIFIED CA 01/11/2018 NADIYA SCOTT MD Ot I73.9 PERIPHERAL VASCULAR DISEASE, UNSPECIFIED 01/11/2018 NADIYA SCOTT MD Ot R07.9 CHEST PAIN, UNSPECIFIED 01/11/2018 NADIYA SCOTT MD Ot R55 SYNCOPE AND COLLAPSE 01/11/2018 NADIYA SCOTT MD Ot Z86.73 PRSNL HX OF TIA (TIA), AND CEREB INFRC W 01/27/2018 ESTELA MORAN APRN Ot E78.00 PURE HYPERCHOLESTEROLEMIA, UNSPECIFIED 01/27/2018 ESTELA MORAN APRN Ot F17.210 NICOTINE DEPENDENCE, CIGARETTES, UNCOMPL 01/27/2018 ESTELA MORAN APRN Ot F32.9 MAJOR DEPRESSIVE DISORDER, SINGLE EPISOD 01/27/2018 ESTELA MORAN APRN Ot F41.9 ANXIETY DISORDER, UNSPECIFIED 01/27/2018 ESTELA MORAN APRN Ot G47.30 SLEEP APNEA, UNSPECIFIED 01/27/2018 ESTELA MORAN APRN Ot I10 ESSENTIAL (PRIMARY) HYPERTENSION 01/27/2018 ESTELA MORAN APRN Ot J43.9 EMPHYSEMA, UNSPECIFIED 01/27/2018 ESTELA MORAN APRN Ot K21.9 GASTRO-ESOPHAGEAL REFLUX DISEASE WITHOUT 01/27/2018 ESTELA MORAN APRN Ot M06.9 RHEUMATOID ARTHRITIS, UNSPECIFIED 01/27/2018 ESTELA MORAN APRN Ot R11.2 NAUSEA WITH VOMITING, UNSPECIFIED 01/27/2018 ESTELA MORAN APRN Ot R19.7 DIARRHEA, UNSPECIFIED 01/27/2018 ESTELA MORAN APRN Ot Z79.51 CHANNEL REBUILDER (CURRENT) USE OF INHALED STERO 01/27/2018 ESTELA MORAN APRN Ot Z86.73 PRSNL HX OF TIA (TIA), AND CEREB INFRC W 01/27/2018 ESTELA MORAN APRN Ot Z87.19 PERSONAL HISTORY OF OTHER DISEASES OF TH 01/27/2018 ESTELA MORAN APRN Ot Z87.440 PERSONAL HISTORY OF URINARY (TRACT) INFE 01/27/2018 ESTELA MORAN APRN Ot Z88.5 ALLERGY STATUS TO NARCOTIC AGENT STATUS 01/27/2018 SETELA MORAN APRN Ot Z88.8 ALLERGY STATUS TO OTH DRUG/MEDS/BIOL SUB 01/27/2018 ESTELA MORAN APRN Ot Z91.041 RADIOGRAPHIC DYE ALLERGY STATUS 01/27/2018 ESTELA MORAN APRN Ot Z91.048 OTHER NONMEDICINAL SUBSTANCE ALLERGY STA 01/27/2018 ESTELA MORAN APRN Ot Z96.0 PRESENCE OF UROGENITAL IMPLANTS 01/27/2018 ESTELA MORAN APRN Ot Z98.51 TUBAL LIGATION STATUS 01/31/2018 ESTELA MORAN APRN Ot E78.00 PURE HYPERCHOLESTEROLEMIA, UNSPECIFIED 01/31/2018 ESTELA MORAN APRN Ot F17.210 NICOTINE DEPENDENCE, CIGARETTES, UNCOMPL 01/31/2018 ESTELA MORAN APRN Ot F32.9 MAJOR DEPRESSIVE DISORDER, SINGLE EPISOD 01/31/2018 ESTELA MORAN APRN Ot F41.9 ANXIETY DISORDER, UNSPECIFIED 01/31/2018 ESTELA MORAN APRN Ot G47.30 SLEEP APNEA, UNSPECIFIED 01/31/2018 ESTELA MORAN APRN Ot I10 ESSENTIAL (PRIMARY) HYPERTENSION 01/31/2018 ESTELA MORAN APRN Ot J43.9 EMPHYSEMA, UNSPECIFIED 01/31/2018 ESTELA MORAN APRN Ot K21.9 GASTRO-ESOPHAGEAL REFLUX DISEASE WITHOUT 01/31/2018 ESTELA MORAN APRN Ot M06.9 RHEUMATOID ARTHRITIS, UNSPECIFIED 01/31/2018 ESTELA MORAN APRN Ot R11.2 NAUSEA WITH VOMITING, UNSPECIFIED 01/31/2018 ESTELA MORAN APRN Ot R19.7 DIARRHEA, UNSPECIFIED 01/31/2018 ESTELA MORAN APRN Ot Z79.51 CHANNEL REBUILDER (CURRENT) USE OF INHALED STERO 01/31/2018 ESTELA MORAN APRN Ot Z86.73 PRSNL HX OF TIA (TIA), AND CEREB INFRC W 01/31/2018 ESTELA MORAN APRN Ot Z87.19 PERSONAL HISTORY OF OTHER DISEASES OF TH 01/31/2018 ESTELA MORAN APRN Ot Z87.440 PERSONAL HISTORY OF URINARY (TRACT) INFE 01/31/2018 ESTELA MORAN APRN Ot Z88.5 ALLERGY STATUS TO NARCOTIC AGENT STATUS 01/31/2018 ESTELA MORAN APRN Ot Z88.8 ALLERGY STATUS TO OTH DRUG/MEDS/BIOL SUB 01/31/2018 ESTELA MORAN APRN Ot Z91.041 RADIOGRAPHIC DYE ALLERGY STATUS 01/31/2018 ESTELA MORAN APRN Ot Z91.048 OTHER NONMEDICINAL SUBSTANCE ALLERGY STA 01/31/2018 ESTELA MORAN APRN Ot Z96.0 PRESENCE OF UROGENITAL IMPLANTS 01/31/2018 ESTELA MORAN APRN Ot Z98.51 TUBAL LIGATION STATUS 04/17/2018 MONA FITZPATRICK Ot E78.00 PURE HYPERCHOLESTEROLEMIA, UNSPECIFIED 04/17/2018 MONA FITZPATRICK Ot F17.210 NICOTINE DEPENDENCE, CIGARETTES, UNCOMPL 04/17/2018 MONA FITZPATRICK Ot F32.9 MAJOR DEPRESSIVE DISORDER, SINGLE EPISOD 04/17/2018 MONA FITZPATRICK Ot F41.9 ANXIETY DISORDER, UNSPECIFIED 04/17/2018 MONA FITZPATRICK Ot I10 ESSENTIAL (PRIMARY) HYPERTENSION 04/17/2018 MONA FITZPATRICK Ot J20.9 ACUTE BRONCHITIS, UNSPECIFIED 04/17/2018 MONA FITZPATRICK Ot J44.0 CHRONIC OBSTRUCTIVE PULMON DISEASE W ACU 04/17/2018 MONA FITZPATRICK Ot K21.9 GASTRO-ESOPHAGEAL REFLUX DISEASE WITHOUT 04/17/2018 MONA FITZPATRICK Ot M06.9 RHEUMATOID ARTHRITIS, UNSPECIFIED 04/17/2018 MONA FITZPATRICK Ot R05 COUGH 04/17/2018 MONA FITZPATRICK Ot Z86.73 PRSNL HX OF TIA (TIA), AND CEREB INFRC W 04/17/2018 MONA FITZPATRICK Ot Z88.5 ALLERGY STATUS TO NARCOTIC AGENT STATUS 04/17/2018 MONA FITZPATRICK Ot Z88.8 ALLERGY STATUS TO OTH DRUG/MEDS/BIOL SUB 04/17/2018 MONA FITZPATRICK Ot Z91.041 RADIOGRAPHIC DYE ALLERGY STATUS 04/17/2018 MONA FITZPATRICK Ot Z98.51 TUBAL LIGATION STATUS 04/19/2018 MONA FITZPATRICK Ot E78.00 PURE HYPERCHOLESTEROLEMIA, UNSPECIFIED 04/19/2018 MONA FITZPATRICK Ot F17.210 NICOTINE DEPENDENCE, CIGARETTES, UNCOMPL 04/19/2018 MONA FITZPATRICK Ot F32.9 MAJOR DEPRESSIVE DISORDER, SINGLE EPISOD 04/19/2018 MONA FITZPATRICK Ot F41.9 ANXIETY DISORDER, UNSPECIFIED 04/19/2018 MONA FITZPATRICK Ot I10 ESSENTIAL (PRIMARY) HYPERTENSION 04/19/2018 MONA FITZPATRICK Ot J20.9 ACUTE BRONCHITIS, UNSPECIFIED 04/19/2018 MONA FITZPATRICK Ot J44.0 CHRONIC OBSTRUCTIVE PULMON DISEASE W ACU 04/19/2018 MONA FITZPATRICK Ot K21.9 GASTRO-ESOPHAGEAL REFLUX DISEASE WITHOUT 04/19/2018 MONA FITZPATRICK Ot M06.9 RHEUMATOID ARTHRITIS, UNSPECIFIED 04/19/2018 MONA FITZPATRICK Ot R05 COUGH 04/19/2018 MONA FITZPATRICK Ot Z86.73 PRSNL HX OF TIA (TIA), AND CEREB INFRC W 04/19/2018 MONA FITZPTARICK Ot Z88.5 ALLERGY STATUS TO NARCOTIC AGENT STATUS 04/19/2018 MONA FITZPATRICK Ot Z88.8 ALLERGY STATUS TO OTH DRUG/MEDS/BIOL SUB 04/19/2018 MONA FITZPATRICK Ot Z91.041 RADIOGRAPHIC DYE ALLERGY STATUS 04/19/2018 MONA FITZPATRICK Ot Z98.51 TUBAL LIGATION STATUS Procedures Code Description [place] [address] ROUTINE VENIPUNCTURE 08/01/2012 68064 UA W/ CULTURE IF INDICATED 08/01/2012 28910 CBC 08/01/2012 19805 BMP 08/01/2012 [id number] GFR CALC (RESULT ONLY) 08/01/2012 34917 CULTURE URINE 08/03/2012 DARSHANA JUDD 10/17/2012 62007 MAMMOGRAM, SCREENING 10/25/2012 11246 PAP SMEAR 10/25/2012 Q0091 PAP SMEAR OBTAIN SMEAR 10/25/2012 09190 PSYCH DIAG EVAL W/MED SRVCS 07/12/2013 32937 SLEEP STUDY 07/13/2013 50080 MAMMOGRAM, SCREENING 08/15/2013 59214 XRAY CERVICAL SPINE, 2 OR 3 VIEWS 09/25/2014 89577 XRAY THORACIC SPINE 3 VIEWS 09/25/2014 72057 MAMMOGRAM, SCREENING 09/28/2014 12083 ROUTINE VENIPUNCTURE 11/30/2014 86629 CBC 11/30/2014 [id number] GFR CALC (RESULT ONLY) 11/30/2014 75930 CMP 11/30/2014 47448 LIPID PANEL 11/30/2014 14318 INFLUENZA A & B (IN-HOUSE) 01/01/2015 20405 NEBULIZER TREATMENT 02/03/2015 48914 OXIMETRY 02/03/2015 [id number] INTRODUCE OTH THROMBOLYTIC IN PERIPH VEI 08/24/2017 13305 CULTURE AEROBIC IDENTIFY TATIANA SANTO MD 12/14/2017 10003 URINE CULTURE/COLONY COUNT TATIANA SANTO MD 12/14/2017 60693 MICROBE SUSCEPTIBLE CALLI TATIANA SANTO MD 12/14/2017 [...] plasma calcium measurement (mass/volume) 8.4 mg/dL 8.5-10.1 Potassium, 24 hr Urine - 06/12/16 10:32 Potassium, Urine 5.9 mmol/L Not Estab. Potassium, Urine 14.2 mmol/24 hr 25.0-125.0 CBC With Differential/Platelet - 06/24/17 09:07 WBC 5.7 x10E3/uL 3.4-10.8 RBC 4.39 x10E6/uL 3.77-5.28 Hemoglobin 12.1 g/dL 11.1-15.9 Hematocrit 37.5 % 34.0-46.6 MCV 85 fL 79-97 MCH 27.6 pg 26.6-33.0 MCHC 32.3 g/dL 31.5-35.7 RDW 15.1 % 12.3-15.4 Platelets 415 x10E3/uL 150-379 Neutrophils 59 % Lymphs 19 % Monocytes 7 % Eos 14 % Basos 1 % Neutrophils (Absolute) 3.4 x10E3/uL 1.4-7.0 Lymphs (Absolute) 1.1 x10E3/uL 0.7-3.1 Monocytes(Absolute) 0.4 x10E3/uL 0.1-0.9 Eos (Absolute) 0.8 x10E3/uL 0.0-0.4 Baso (Absolute) 0.1 x10E3/uL 0.0-0.2 Immature Granulocytes 0 % Immature Grans (Abs) 0.0 x10E3/uL 0.0-0.1 Comp. Metabolic Panel (14) - 06/24/17 09:07 Glucose, Serum 85 mg/dL 65-99 BUN 9 mg/dL 6-20 Creatinine, Serum 0.79 mg/dL 0.57-1.00 eGFR If NonAfricn Am 99 mL/min/1.73 >59 eGFR If Africn Am 114 mL/min/1.73 >59 BUN/Creatinine Ratio 11 9-23 Sodium, Serum 141 mmol/L 134-144 Potassium, Serum 4.8 mmol/L 3.5-5.2 Chloride, Serum 100 mmol/L 96-106 Carbon Dioxide, Total 24 mmol/L 18-29 Calcium, Serum 9.9 mg/dL 8.7-10.2 Protein, Total, Serum 7.2 g/dL 6.0-8.5 Albumin, Serum 4.4 g/dL 3.5-5.5 Globulin, Total 2.8 g/dL 1.5-4.5 A/G Ratio 1.6 1.2-2.2 Bilirubin, Total 0.3 mg/dL 0.0-1.2 Alkaline Phosphatase, S 95 IU/L 39-117 AST (SGOT) 21 IU/L 0-40 ALT (SGPT) 19 IU/L 0-32 Lipid Panel - 06/24/17 09:07 Cholesterol, Total 238 mg/dL 100-199 Triglycerides 92 mg/dL 0-149 HDL Cholesterol 57 mg/dL >39 VLDL Cholesterol Davon 18 mg/dL 5-40 LDL Cholesterol Calc 163 mg/dL 0-99 Thyroid [place] Profile - 06/24/17 09:07 TSH 1.120 uIU/mL 0.450-4.500 CBC With Differential/Platelet - 07/13/16 09:53 WBC 11.2 x10E3/uL 3.4-10.8 RBC 5.02 x10E6/uL 3.77-5.28 Hemoglobin 15.1 g/dL 11.1-15.9 Hematocrit 43.5 % 34.0-46.6 MCV 87 fL 79-97 MCH 30.1 pg 26.6-33.0 MCHC 34.7 g/dL 31.5-35.7 RDW 15.5 % 12.3-15.4 Platelets 357 x10E3/uL 150-379 Neutrophils 66 % Lymphs 28 % Monocytes 5 % Eos 1 % Basos 0 % Neutrophils (Absolute) 7.4 x10E3/uL 1.4-7.0 Lymphs (Absolute) 3.1 x10E3/uL 0.7-3.1 Monocytes(Absolute) 0.6 x10E3/uL 0.1-0.9 Eos (Absolute) 0.1 x10E3/uL 0.0-0.4 Baso (Absolute) 0.0 x10E3/uL 0.0-0.2 Immature Granulocytes 0 % Immature Grans (Abs) 0.0 x10E3/uL 0.0-0.1 Comp. Metabolic Panel (14) - 07/13/16 09:53 Glucose, Serum 101 mg/dL 65-99 BUN 6 mg/dL 6-24 Creatinine, Serum 1.11 mg/dL 0.57-1.00 eGFR If NonAfricn Am 54 mL/min/1.73 >59 eGFR If Africn Am 63 mL/min/1.73 >59 BUN/Creatinine Ratio 5 9-23 Sodium, Serum 138 mmol/L 134-144 Potassium, Serum 4.6 mmol/L 3.5-5.2 Chloride, Serum 96 mmol/L 97-108 Carbon Dioxide, Total 24 mmol/L 18-29 Calcium, Serum 9.7 mg/dL 8.7-10.2 Protein, Total, Serum 7.6 g/dL 6.0-8.5 Albumin, Serum 4.3 g/dL 3.5-5.5 Globulin, Total 3.3 g/dL 1.5-4.5 A/G Ratio 1.3 1.1-2.5 Bilirubin, Total 0.7 mg/dL 0.0-1.2 Alkaline Phosphatase, S 117 IU/L 39-117 AST (SGOT) 21 IU/L 0-40 ALT (SGPT) 24 IU/L 0-32 Lipid Panel - 07/13/16 09:53 Cholesterol, Total 147 mg/dL 100-199 Triglycerides 130 mg/dL 0-149 HDL Cholesterol 47 mg/dL >39 VLDL Cholesterol Davon 26 mg/dL 5-40 LDL Cholesterol Calc 74 mg/dL 0-99 Sedimentation Rate-Westergren - 07/13/16 09:53 Sedimentation Rate-Westergren 14 mm/hr 0-40 C-Reactive Protein, Quant - 07/13/16 09:53 C-Reactive Protein, Quant 8.1 mg/L 0.0-4.9 Basic Metabolic Panel (8) - 09/17/16 11:48 Glucose, Serum 98 mg/dL 65-99 BUN 11 mg/dL 6-24 Creatinine, Serum 0.96 mg/dL 0.57-1.00 eGFR If NonAfricn Am 65 mL/min/1.73 >59 eGFR If Africn Am 75 mL/min/1.73 >59 BUN/Creatinine Ratio 11 9-23 Sodium, Serum 141 mmol/L 136-144 Potassium, Serum 3.9 mmol/L 3.5-5.2 Chloride, Serum 100 mmol/L 97-106 Carbon Dioxide, Total 26 mmol/L 18-29 Calcium, Serum 9.7 mg/dL 8.7-10.2 Pap Lb, HPV-hr - 09/17/16 12:26 HPV, high-risk Negative Negative DIAGNOSIS: Comment Specimen adequacy: Comment Clinician provided ICD10: Comment Performed by: Comment . . Note: Comment Methicillin resistant Staphylococcus aureus (MRSA) screening culture - 10:34 MRSA SCREEN RESULT MRSA ISOLATED NRG CBC With Differential/Platelet - 04/23/17 10:14 WBC 7.9 x10E3/uL 3.4-10.8 RBC 5.14 x10E6/uL 3.77-5.28 Hemoglobin 15.1 g/dL 11.1-15.9 Hematocrit 44.9 % 34.0-46.6 MCV 87 fL 79-97 MCH 29.4 pg 26.6-33.0 MCHC 33.6 g/dL 31.5-35.7 RDW 14.9 % 12.3-15.4 Platelets 340 x10E3/uL 150-379 Neutrophils 72 % Lymphs 19 % Monocytes 8 % Eos 1 % Basos 0 % Neutrophils (Absolute) 5.7 x10E3/uL 1.4-7.0 Lymphs (Absolute) 1.5 x10E3/uL 0.7-3.1 Monocytes(Absolute) 0.6 x10E3/uL 0.1-0.9 Eos (Absolute) 0.1 x10E3/uL 0.0-0.4 Baso (Absolute) 0.0 x10E3/uL 0.0-0.2 Immature Granulocytes 0 % Immature Grans (Abs) 0.0 x10E3/uL 0.0-0.1 Comp. Metabolic Panel (14) - 04/23/17 10:14 Glucose, Serum 119 mg/dL 65-99 BUN 7 mg/dL 8-27 Creatinine, Serum 1.00 mg/dL 0.57-1.00 eGFR If NonAfricn Am 61 mL/min/1.73 >59 eGFR If Africn Am 71 mL/min/1.73 >59 BUN/Creatinine Ratio 7 12-28 Sodium, Serum 142 mmol/L 134-144 Potassium, Serum 4.2 mmol/L 3.5-5.2 Chloride, Serum 99 mmol/L 96-106 Carbon Dioxide, Total 20 mmol/L 18-29 Calcium, Serum 9.8 mg/dL 8.7-10.3 Protein, Total, Serum 8.1 g/dL 6.0-8.5 Albumin, Serum 4.6 g/dL 3.6-4.8 Globulin, Total 3.5 g/dL 1.5-4.5 A/G Ratio 1.3 1.2-2.2 Bilirubin, Total 0.6 mg/dL 0.0-1.2 Alkaline Phosphatase, S 115 IU/L 39-117 AST (SGOT) 17 IU/L 0-40 ALT (SGPT) 12 IU/L 0-32 Lipid Panel - 04/23/17 10:14 Cholesterol, Total 259 mg/dL 100-199 Triglycerides 147 mg/dL 0-149 HDL Cholesterol 65 mg/dL >39 VLDL Cholesterol Davon 29 mg/dL 5-40 LDL Cholesterol Calc 165 mg/dL 0-99 Sedimentation Rate-Westergren - 04/23/17 10:14 Sedimentation Rate-[place] 25 mm/hr 0-40 C-Reactive Protein, Quant - 04/23/17 10:14 C-Reactive Protein, Quant 7.8 mg/L 0.0-4.9 Complete blood count (CBC) with automated white [...] plasma calcium measurement (mass/volume) 8.9 mg/dL 8.5-10.1 CBC - 10/18/17 10:25 WHITE BLOOD CELL COUNT 9.7 Thousand/uL 3.8-10.8 RED BLOOD CELL COUNT 4.80 Million/uL 3.80-5.10 HEMOGLOBIN 14.1 g/dL 11.7-15.5 HEMATOCRIT 41.4 % 35.0-45.0 MCV 86.3 fL 80.0-100.0 MCH 29.4 pg 27.0-33.0 MCHC 34.1 g/dL 32.0-36.0 RDW 14.6 % 11.0-15.0 PLATELET COUNT 391 Thousand/uL 140-400 MPV 9.5 fL 7.5-12.5 ABSOLUTE NEUTROPHILS 6887 cells/uL 2731-3646 ABSOLUTE LYMPHOCYTES 2037 cells/uL 850-3900 ABSOLUTE MONOCYTES 640 cells/uL 200-950 ABSOLUTE EOSINOPHILS 97 cells/uL 15-500 ABSOLUTE BASOPHILS 39 cells/uL 0-200 NEUTROPHILS 71 % NRG LYMPHOCYTES 21.0 % NRG MONOCYTES 6.6 % NRG EOSINOPHILS 1.0 % NRG BASOPHILS 0.4 % NRG CULTURE, URINE - 10/18/17 10:25 CULTURE, URINE, ROUTINE SEE NOTE NRG Complete urinalysis with reflex to culture - 01/27/18 16:10 Urine color determination YELLOW NRG Urine clarity [...] detection in urine sediment by light microscopy 2-5 NRG Crystals detection in urine sediment by light microscopy NONE NRG Casts detection in urine sediment by light microscopy NONE NRG Mucus detection in urine sediment by light microscopy NEGATIVE NRG Complete urinalysis with reflex to culture NO NRG Complete blood count (CBC) with automated white blood cell (WBC) differential - 01/27/18 16:10 Blood leukocytes automated count (number/volume) 9.2 10*3/uL 4.3-11.0 Blood erythrocytes automated count (number/volume) 4.64 10*6/uL 4.35-5.85 Venous blood hemoglobin measurement (mass/volume) 13.8 g/dL 11.5-16.0 Blood hematocrit (volume fraction) 40 % 35-52 Automated erythrocyte mean corpuscular volume 87 [foz_us] 80-99 Automated erythrocyte mean corpuscular hemoglobin (mass per erythrocyte) 30 pg 25-34 Automated erythrocyte mean corpuscular hemoglobin concentration measurement ( mass/volume) 34 g/dL 32-36 Automated erythrocyte distribution width ratio 16.2 % 10.0-14.5 Automated blood platelet count (count/volume) 349 10*3/uL 130-400 Automated blood platelet mean volume measurement 9.7 [foz_us] 7.4-10.4 Automated blood neutrophils/100 leukocytes 63 % 42-75 Automated blood lymphocytes/100 leukocytes 29 % 12-44 Blood monocytes/100 leukocytes 7 % 0-12 Automated blood eosinophils/100 leukocytes 1 % 0-10 Automated blood basophils/100 leukocytes 0 % 0-10 Blood neutrophils automated count (number/volume) 5.8 10*3 1.8-7.8 Blood lymphocytes automated count (number/volume) 2.7 10*3 1.0-4.0 Blood monocytes automated count (number/volume) 0.6 10*3 0.0-1.0 Automated eosinophil count 0.1 10*3/uL 0.0-0.3 Automated blood basophil count (count/volume) 0.0 10*3/uL 0.0-0.1 Comprehensive metabolic panel - 01/27/18 16:10 Serum or plasma sodium measurement (moles/volume) 133 mmol/L 135-145 Serum or plasma potassium measurement (moles/volume) 4.1 mmol/L 3.6-5.0 Serum or plasma chloride measurement (moles/volume) 101 mmol/L 98-107 Carbon dioxide 24 mmol/L 21-32 Serum or plasma anion gap determination (moles/volume) 8 mmol/L 5-14 Serum or plasma urea nitrogen measurement (mass/volume) 8 mg/dL 7-18 Serum or plasma creatinine measurement (mass/volume) 0.91 mg/dL 0.60-1.30 Serum or plasma urea nitrogen/creatinine mass ratio 9 NRG Serum or plasma creatinine measurement with calculation of estimated glomerular filtration rate > NRG Serum or plasma glucose measurement (mass/volume) 85 mg/dL 70-105 Serum or plasma calcium measurement (mass/volume) 9.3 mg/dL 8.5-10.1 Serum or plasma total bilirubin measurement (mass/volume) 0.4 mg/dL 0.1-1.0 Serum or plasma alkaline phosphatase measurement (enzymatic activity/volume) 90 U/L 40-136 Serum or plasma aspartate aminotransferase measurement (enzymatic activity/ volume) 18 U/L 5-34 Serum or plasma alanine aminotransferase measurement (enzymatic activity/volume ) 14 U/L 0-55 Serum or plasma protein measurement (mass/volume) 8.4 g/dL 6.4-8.2 Serum or plasma albumin measurement (mass/volume) 4.2 g/dL 3.2-4.5 CMP - 05/25/18 15:16 GLUCOSE 98 mg/dL 65-99 UREA NITROGEN (BUN) 13 mg/dL 7-25 CREATININE 0.87 mg/dL 0.50-0.99 eGFR NON-AFR. [place] 72 mL/min/1.73m2 > OR=60 eGFR 83 mL/min/1.73m2 > OR=60 BUN/CREATININE RATIO NOT APPLICABLE (calc) 6-22 SODIUM 135 mmol/L 135-146 POTASSIUM 4.6 mmol/L 3.5-5.3 CHLORIDE 101 mmol/L 98-110 CARBON DIOXIDE 28 mmol/L 20-32 CALCIUM 9.8 mg/dL 8.6-10.4 PROTEIN, TOTAL 8.1 g/dL 6.1-8.1 ALBUMIN 4.2 g/dL 3.6-5.1 GLOBULIN 3.9 g/dL (calc) 1.9-3.7 ALBUMIN/GLOBULIN RATIO 1.1 (calc) 1.0-2.5 BILIRUBIN, TOTAL 0.5 mg/dL 0.2-1.2 ALKALINE PHOSPHATASE 93 U/L 33-130 AST 18 U/L 10-35 ALT 17 U/L 6-29 CBC - 05/25/18 15:16 WHITE BLOOD CELL COUNT 8.7 Thousand/uL 3.8-10.8 RED BLOOD CELL COUNT 4.62 Million/uL 3.80-5.10 HEMOGLOBIN 14.1 g/dL 11.7-15.5 HEMATOCRIT 40.7 % 35.0-45.0 MCV 88.1 fL 80.0-100.0 MCH 30.5 pg 27.0-33.0 MCHC 34.6 g/dL 32.0-36.0 RDW 14.4 % 11.0-15.0 PLATELET COUNT 364 Thousand/uL 140-400 MPV 9.6 fL 7.5-12.5 ABSOLUTE NEUTROPHILS 5255 cells/uL 4750-9843 ABSOLUTE LYMPHOCYTES 2758 cells/uL 850-3900 ABSOLUTE MONOCYTES 557 cells/uL 200-950 ABSOLUTE EOSINOPHILS 87 cells/uL 15-500 ABSOLUTE BASOPHILS 44 cells/uL 0-200 NEUTROPHILS 60.4 % NRG LYMPHOCYTES 31.7 % NRG MONOCYTES 6.4 % NRG EOSINOPHILS 1.0 % NRG BASOPHILS 0.5 % NRG TSH - 05/25/18 15:16 TSH 3.52 mIU/L 0.40-4.50 Encounters ACCT No. Visit Date/Time Discharge Status Pt. Type Provider Facility Loc./Unit Complaint [id number] 12/14/2017 16:58:00 12/14/2017 16:58:00 DIS Outpatient HANSA WEBSTER, TATIANA [facility] LAB [id number] 09/18/2016 08:07:00 Document Registration [id number] 09/22/2016 13:06:00 Document Registration [email or web address] 02/01/2018 16:01:50 ACT Document Registration [id number] 04/17/2018 21:18:00 04/17/2018 23:29:00 DIS Emergency MONA FITZPATRICK [facility] ER COUGH,MUCOUS [id number] 01/27/2018 15:44:00 01/27/2018 19:48:00 DIS Emergency ESTELA MORAN SCROLL SHEAR OPERATOR [facility] ER DEHYDRATION, V/D [id number] 12/22/2017 07:17:00 12/22/2017 23:59:59 CLS Outpatient NADIYA SCOTT MD [facility] CATH CVA [id number] 09/24/2017 15:30:00 09/24/2017 23:59:59 CLS Preadmit TREVER SNOWDEN [facility] RAD SCREENING [id number] 08/26/2017 13:31:00 09/01/2017 14:06:00 DIS Inpatient CHELSI CORDOBA MD [facility] IRF CVA [id number] 08/24/2017 11:34:00 08/26/2017 13:30:00 DIS Inpatient GLENN PEREZ MD [facility] ICU CVA [id number] 05/07/2017 13:52:00 05/10/2017 15:00:00 DIS Inpatient CHELSI CORDOBA MD [facility] IRF POSS STROKE, ONSET OF ILLNESS [id number] 03/31/2017 10:18:00 03/31/2017 13:10:00 DIS Outpatient ORLANDO HOFFMAN MD [facility] LEFT SHOULDER CAPSULITIS [id number] 03/29/2017 05:32:00 03/29/2017 11:41:00 DIS Outpatient ORLANDO HOFFMAN MD [facility] PREOP LEFT SHOULDER MANIPULATION [id number] 01/28/2017 13:19:00 01/28/2017 23:59:59 CLS Outpatient ANGIE LASSITER [facility] CARD I25.10 [id number] 09/22/2016 13:39:00 09/22/2016 23:59:59 CLS Outpatient TREVER SNOWDEN [facility] RAD SCREENING [id number] 05/13/2016 13:15:00 05/14/2016 16:38:00 DIS Inpatient CHRIS WBESTER, GLENN Sims [facility] ICU SYMPTOMATIC HYPOKALEMIA NAUSEA [id number] 08/13/2015 10:56:00 08/13/2015 23:59:59 CLS Outpatient TREVER SNOWDEN [facility] RAD [id number] 07/10/2015 23:10:00 07/11/2015 18:45:00 DIS Inpatient KATHYA WEBSTER, LYNDSAY Negron [facility] 4TH [id number] 01/06/2015 08:22:00 01/06/2015 10:35:00 DIS Emergency LEEANN BEACH MD [facility] ER [id number] 10/14/2014 17:30:00 10/14/2014 19:48:00 DIS Emergency HOA CAIN DO [facility] ER [id number] 09/28/2014 13:48:00 09/28/2014 23:59:59 CLS Outpatient TREVER SNOWDEN [facility] RAD [id number] 09/12/2013 09:19:00 09/12/2013 23:59:59 CLS Outpatient [id number] 08/10/2013 21:28:00 08/11/2013 06:55:00 DIS Outpatient [id number] 03/07/2013 12:18:00 03/07/2013 23:59:59 CLS Outpatient [id number] 02/19/2013 17:13:00 02/19/2013 18:52:00 DIS Emergency [id number] 01/10/2016 08:51:00 Document Registration [id number] 07/10/2015 23:37:00 Document Registration [id number] 07/10/2015 23:37:00 Document Registration [id number] 03/21/2015 11:59:00 Document Registration [id number] 09/14/2011 16:25:00 Document Registration [id number] 06/13/2016 13:05:00 Document Registration [id number] 07/10/2015 20:11:47 ACT Document Registration [id number] 04/24/2017 07:06:00 Document Registration [id number] 01/15/2015 13:16:00 01/15/2015 23:59:59 CLS 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, TEQUILA [id number] 01/01/2015 10:37:00 01/01/2015 23:59:59 CLS Outpatient TREVER SNOWDEN APRN [id number] 11/30/2014 13:53:00 11/30/2014 23:59:59 CLS 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, TEQUILA [id number] 10/18/2014 09:53:00 10/18/2014 23:59:59 CLS 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, TEQUILA [id number] 10/18/2014 09:53:00 10/18/2014 23:59:59 CLS 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, TEQUILA [id number] 09/25/2014 13:41:00 09/25/2014 23:59:59 CLS Outpatient TREVER SNOWDEN APRN [id number] 08/28/2014 09:54:00 08/28/2014 23:59:59 CLS 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, TEQUILA [id number] 08/28/2014 09:54:00 08/28/2014 23:59:59 CLS 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, TEQUILA [id number] 07/27/2014 10:43:00 07/27/2014 23:59:59 CLS 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, TEQUILA [id number] 04/26/2014 15:51:00 04/26/2014 23:59:59 CLS 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, 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 [id number] 04/26/2014 15:51:00 04/26/2014 23:59:59 CLS 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, 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 [id number] 12/19/2013 16:22:00 12/19/2013 23:59:59 CLS Outpatient MORAIMA LOYA APRN [id number] 12/19/2013 16:22:00 12/19/2013 23:59:59 CLS Outpatient MORAIAM LOYA APRN [id number] 12/11/2013 08:28:00 12/11/2013 23:59:59 CLS Outpatient [id number] 08/15/2013 14:59:00 08/15/2013 23:59:59 CLS Outpatient LYNDSAY RASHEED MD [id number] 08/15/2013 14:17:00 08/15/2013 23:59:59 CLS Outpatient MORAIMA LOYA APRN [id number] 07/06/2013 11:48:00 07/06/2013 23:59:59 CLS Outpatient MORAIMA LOYA APRN [id number] 10/24/2012 09:56:00 10/24/2012 23:59:59 CLS Outpatient CORTEZ CARREON DO [id number] 10/17/2012 09:33:00 10/17/2012 23:59:59 [place] [id number] 08/01/2012 10:53:00 08/01/2012 23:59:59 CLS Outpatient CORTEZ CARREON DO [id number] 08/01/2012 10:53:00 08/01/2012 23:59:59 CLS Outpatient [id number] 06/25/2017 13:06:00 Document Registration [id number] 06/24/2016 07:06:00 Document Registration [id number] 05/16/2018 11:00:00 05/16/2018 23:59:59 CLS Outpatient TREVER SNOWDEN APRN [facility] [id number] 05/25/2018 14:40:00 Document Registration [id number] 10/18/2017 10:25:00 Document Registration [id number] 10/18/2017 09:20:00 Document Registration [id number] 05/20/2015 22:24:36 05/20/2015 23:59:59 CLS Outpatient Sylwia, V S [id number] 01/28/2015 11:10:01 01/28/2015 23:59:59 CLS Outpatient Sylwia, V S [id number] 01/28/2018 20:08:03 ACT Unknown [id number] 07/14/2016 13:05:00 Document Registration [id number] 06/18/2015 10:25:00 06/18/2015 14:15:00 DIS Inpatient QUINN SANTO [facility] OPS [id number] 09/09/2014 00:00:00 Document Registration
[2018-06-12 16:39] LABS: BASOPHILS % (AUTO) 0 % (0-10); EOSINOPHILS # (AUTO) 0.1 10^3/uL (0.0-0.3); EOSINOPHILS % (AUTO) 1 % (0-10); HEMATOCRIT 32 % (35-52); HEMOGLOBIN 11.1 G/DL (11.5-16.0); LYMPHOCYTES # (AUTO) 1.9 X 10^3 (1.0-4.0); LYMPHOCYTES % (AUTO) 24 % (12-44); MEAN CORPUSCULAR HGB CONC 35 G/DL (32-36); MEAN CORPUSCULAR VOLUME 87 FL (80-99); MEAN PLATELET VOLUME 9.5 FL (7.4-10.4); MONOCYTES # (AUTO) 0.4 X 10^3 (0.0-1.0); MONOCYTES % (AUTO) 5 % (0-12); NEUTROPHILS # (AUTO) 5.7 X 10^3 (1.8-7.8); NEUTROPHILS % (AUTO) 70 % (42-75); PLATELET COUNT 237 10^3/uL (130-400); RED BLOOD COUNT 3.64 10^6/uL (4.35-5.85); RED CELL DISTRIBUTION WIDTH 14.9 % (10.0-14.5); WHITE BLOOD COUNT 8.1 10^3/uL (4.3-11.0)
[2018-06-12 16:40] LABS: MEAN CORPUSCULAR HEMOGLOBIN 30 PG (25-34)
[2018-06-12 16:51] LABS: FIBRIN DEGRADATION PRODUCTS 2.11 UG/ML (0.00-0.49); INR 1.2 (0.8-1.4); PROTHROMBIN TIME PATIENT 14.8 SEC (12.2-14.7)
[2018-06-12 16:58] LABS: ALANINE AMINOTRANSFERASE 25 U/L (0-55); ALBUMIN 3.5 GM/DL (3.2-4.5); ALKALINE PHOSPHATASE 89 U/L (40-136); BILIRUBIN,TOTAL 0.8 MG/DL (0.1-1.0); BUN/CREATININE RATIO 14; CALCIUM 8.2 MG/DL (8.5-10.1); CARBON DIOXIDE 19 MMOL/L (21-32); CHLORIDE 96 MMOL/L (98-107); CREATININE SERUM 1.94 MG/DL (0.60-1.30); GFR ESTIMATED 26; GLUCOSE 94 MG/DL (70-105); TOTAL PROTEIN 6.8 GM/DL (6.4-8.2)
--- NOTE | 2018-06-12 17:01 | Diagnostic Imaging Report ---
EXAM: CT HEAD WO-R/O STROKE INDICATION: Leg weakness. Altered mental status. Slurred speech. COMPARISON: CT head without contrast from 08/24/2017. FINDINGS: No intracranial hemorrhage, mass effect, hydrocephalus, or extra-axial fluid collections. No CT evidence of acute infarction. Osseous structures are intact. The visualized paranasal sinuses and mastoids are unremarkable. IMPRESSION: No acute intracranial CT findings. Dictated by: Dictated on workstation # [id number]
[2018-06-12 17:07] LABS: BILIRUBIN,URINE 1+ (NEGATIVE); CLARITY,URINE CLEAR; COLOR,URINE YELLOW; GLUCOSE, URINE (UA) NEGATIVE (NEGATIVE); KETONES,URINE NEGATIVE (NEGATIVE); LEUKOCYTE ESTERASE ,URINE 1+ (NEGATIVE); NITRITE,URINE NEGATIVE (NEGATIVE); PH,URINE 5 (5-9); PROTEIN,URINE NEGATIVE (NEGATIVE); UROBILINOGEN,URINE 1 MG/DL (NORMAL)
--- NOTE | 2018-06-12 17:12 | Diagnostic Imaging Report ---
INDICATION: Wheezing. EXAMINATION: Portable erect AP chest at 4:42 p.m. FINDINGS: The heart is enlarged and has increased in size since the prior exam of 04/17/2018. Furthermore, in the interval since the prior study, alveolar/interstitial pulmonary infiltrates have developed in the right suprahilar region, the left upper lung and the left midlung. These findings could be secondary to pulmonary edema, pneumonia/atelectasis or a combination of all three. The periphery of the right lung is generally clear and there is no significant pleural effusion in either lung base. The mediastinum is not widened. The osseous structures are intact. There is a loop recorder device again noted overlying the left thorax. IMPRESSION: The appearance of the chest has worsened since the prior study as the heart has increased in size and alveolar/interstitial pulmonary infiltrates have developed, bilaterally, particularly on the left. These abnormal parenchymal densities may be related to pulmonary edema, pneumonia, atelectasis or a combination of all three. A followup exam would be recommended for continued evaluation. Dictated by: Dictated on workstation # [id number]
[2018-06-12 17:25] LABS: SODIUM 124 MMOL/L (135-145)
[2018-06-12 17:28] LABS: BACTERIA,URINE LARGE /HPF; SQUAMOUS EPITHELIAL CELL,UR 0-2 /HPF; WBC,URINE 0-2 /HPF
[2018-06-12 17:30] LABS: AMPHETAMINE SCREEN, URINE NEGATIVE (NEGATIVE); BARBITURATE SCREEN URINE NEGATIVE (NEGATIVE); BENZODIAZEPINES SCREEN URINE NEGATIVE (NEGATIVE); CANNABINOID SCREEN, URINE NEGATIVE (NEGATIVE); COCAINE SCREEN URINE NEGATIVE (NEGATIVE); METHADONE STAT NEGATIVE (NEGATIVE); METHAMPHETAMINE SCREEN URINE S NEGATIVE (NEGATIVE); OPIATE SCREEN URINE NEGATIVE (NEGATIVE); OXYCODONE STAT NEGATIVE (NEGATIVE); PROPOXYPHENE STAT NEGATIVE (NEGATIVE); TRICYCLIC ANTIDEPRESSANTS SCRE POSITIVE (NEGATIVE)
[2018-06-12] MEDS ORDERED: cefTRIAXone FOR IV USE 1,000 MG in NS (IVPB) 50 ML IV ONE (19:00)
[2018-06-12] MEDS ORDERED: HYDROCORTISONE 100 MG/2 ML (Solu-CORTEF) VIAL IV ONE (19:00)
[2018-06-12] MEDS ORDERED: NS IV 1000 ML 1,000 ML IV SCH (19:15)
[2018-06-12 20:05] VITALS: BP 137/66
[2018-06-12 20:07] VITALS: BP 137/66
[2018-06-12] MEDS ORDERED: LACTATED RINGERS 1,000 ML IV ONE (20:19)
[2018-06-12] MEDS: LACTATED RINGERS 1,000 ML IV SCH (20:38)
[2018-06-12] MEDS: NOREPINEPHRINE 4 MG in NS (IVPB) 250 ML IV SCH (20:39)
[2018-06-12] MEDS ORDERED: CATHETER FLUSH 10 ML SYR IV PRN (20:45)
[2018-06-12 21:00] VITALS: BP 124/73
[2018-06-12 22:00] VITALS: BP 92/69
[2018-06-12] MEDS: RT-ALBUTEROL/IPRATROPIUM 3 ML (DUONEB) VIAL INH SCH (22:32)
[2018-06-12 23:00] VITALS: BP 102/52
[2018-06-12] MEDS: CATHETER FLUSH 10 ML SYR IV SCH (23:30)
[2018-06-12] MEDS: AZITHROMYCIN 500 MG/NS 250 ML IVPB IV SCH ×2 (23:39)
[2018-06-13] VITALS (36 sets, daily range): BP systolic 97–179; BP diastolic 43–99
[2018-06-13] MEDS: LACTATED RINGERS 1,000 ML IV SCH ×6 (00:43→20:27)
[2018-06-13] MEDS: RT-ALBUTEROL/IPRATROPIUM 3 ML (DUONEB) VIAL INH SCH ×5 (02:36→18:35)
[2018-06-13 03:01] LABS: BASOPHILS % (AUTO) 0 % (0-10); EOSINOPHILS % (AUTO) 0 % (0-10); HEMATOCRIT 28 % (35-52); HEMOGLOBIN 10.1 G/DL (11.5-16.0); LYMPHOCYTES # (AUTO) 0.7 X 10^3 (1.0-4.0); LYMPHOCYTES % (AUTO) 12 % (12-44); MEAN CORPUSCULAR HEMOGLOBIN 31 PG (25-34); MEAN CORPUSCULAR HGB CONC 36 G/DL (32-36); MEAN CORPUSCULAR VOLUME 86 FL (80-99); MEAN PLATELET VOLUME 9.6 FL (7.4-10.4); MONOCYTES # (AUTO) 0.3 X 10^3 (0.0-1.0); MONOCYTES % (AUTO) 5 % (0-12); NEUTROPHILS # (AUTO) 4.8 X 10^3 (1.8-7.8); NEUTROPHILS % (AUTO) 84 % (42-75); PLATELET COUNT 229 10^3/uL (130-400); RED BLOOD COUNT 3.25 10^6/uL (4.35-5.85); RED CELL DISTRIBUTION WIDTH 14.9 % (10.0-14.5); WHITE BLOOD COUNT 5.8 10^3/uL (4.3-11.0)
[2018-06-13 03:55] LABS: CHOLESTEROL 124 MG/DL (< 200); HDL CHOLESTEROL 36 MG/DL (40-60); TRIGLYCERIDES 100 MG/DL (<150); VLDL CHOLESTEROL 20 MG/DL (5-40)
[2018-06-13 03:58] LABS: CALCIUM 7.8 MG/DL (8.5-10.1); CREATININE SERUM 1.31 MG/DL (0.60-1.30); MAGNESIUM 2.1 MG/DL (1.8-2.4); PHOSPHORUS 3.1 MG/DL (2.3-4.7); POTASSIUM 4.3 MMOL/L (3.6-5.0)
[2018-06-13] MEDS: CATHETER FLUSH 10 ML SYR IV SCH ×3 (05:37→22:00)
[2018-06-13] MEDS: KCL 20 MEQ TAB (K-DUR) PO SCH (05:38)
[2018-06-13] MEDS: MAGNESIUM 1 GM/100 ML IVPB 100 ML IV SCH (05:38)
[2018-06-13] MEDS: POTASSIUM CL 10MEQ/50ML IVPB 50 ML IV SCH ×5 (05:38→23:46)
[2018-06-13] MEDS ORDERED: ACETAMINOPHEN 325 MG TABLET PO PRN (06:45)
[2018-06-13 07:13] LABS: ABG BASE EXCESS -3.8 MMOL/L (-2.5-2.5); ABG OXYGEN SATURATION 74 % (94-100); ABG PCO2 39 MMHG (35-45); ABG PH 7.35 (7.37-7.43); ABG PO2 41 MMHG (79-93); ABG TCO2 21.6 MMOL/L (21.0-31.0)
[2018-06-13 07:23] LABS: ALLENS TEST YES-POS; INSPIRED O2 2 LITERS; PATIENT TEMP 101.3; VENTILATOR NO
[2018-06-13] MEDS: NOREPINEPHRINE 4 MG in NS (IVPB) 250 ML IV SCH ×2 (08:31→23:39)
--- NOTE | 2018-06-13 08:47 | Diagnostic Imaging Report ---
INDICATION: Followup of infiltrates with shortness of breath. FINDINGS: Bilateral dense infiltrates noted in the upper lobes bilaterally. Moderate perihilar infiltrate noted in the left lower lobe as well. Right lower lung appears clear. The heart is mildly enlarged and has increased in size since 04/17/2018. No evidence of pleural effusion. No pneumothorax. IMPRESSION: 1. Increasing cardiac size. 2. Bilateral infiltrates present increasing in density since previous exam. These could represent inflammatory infiltrates or increasing pulmonary edema. Dictated by: Dictated on workstation # [id number]
--- NOTE | 2018-06-13 10:15 | History & Physicial (CHS) ---
HPI History of Present Illness: Patient presented yesterday via EMS with complaint of increased weakness, she has had at least 2 falls in the last 2 days. Her family reports that she has gotten progressively more ill over the last few days. Short of breath - when EMS picked her up, patient had sats in the 80's, was placed on nasal canula with improvement in oxygenation to the 90's. Required multiple breathing treatments in ED. Head CT negative for acute process. CXR shows bilateral infiltrates in upper lobes as well as left lower lobe infiltrate. Review of clinic chart shows that patient has been seen multiple times for coughing and weakness over the last 2-3 months. Patient also hypotensive in the ED, responded to fluid bolus. Admitted to ICU with severe sepsis. Overnight called by ICU nurse, patient coughing up bloody sputum. Given that she has RA and is on Xeljanz, it is not unreasonable to verify that she does not have TB. Will check Quanterferon Gold and place in isolation in negative pressure room until ruled out. When seen at the time of exam, patient appears quite distressed, and has significantly increased work of breathing. She reports that she has been sick for at least the last 2 months, but that she got significantly worse 2-3 days ago, and is continuing to feel worse. She is tachypneic and tachycardic with accessory muscle use. Pt has an allergy to IV contrast listed; when asked about this, she reports that she can have contrast as long as she gets Benadryl at the same time. She is agreeable to being placed on Bi-pap to see if that helps improve her respiratory status, and a consult has been placed to Dr. Bautista for assistance with pulmonary management. Source: patient, RN/MD, RN notes reviewed, old records Exam Limitations: clinical condition Date seen by provider: Jun 13, 2018 Time Seen by Provider: 16:30 Attending Physician Lata Robins DO PCP Lori Willis, [facility] [place],[facility] Consult Dr. Bautista Date of Admission Jun 12, 2018 at 19:02 Home Medications Home Medications Reviewed patient Home Medication Reconciliation performed by pharmacy medication reconciliations voip technician and/or nursing. Patients Allergies have been reviewed. Allergies Coded Allergies: Iodinated Contrast- Oral and IV Dye (Verified Allergy, Intermediate, ) doxycycline (Unverified Allergy, Intermediate, FACIAL SWELLING, 03/29/17) fluticasone furoate (Verified Allergy, Intermediate, N/V, 03/29/17) paroxetine (Verified Allergy, Intermediate, 03/29/17) vilanterol (Verified Allergy, Intermediate, N/V, 03/29/17) methylprednisolone (Unverified Allergy, Mild, flushing and skin burning and eye itching, 03/29/17) codeine (Verified Allergy, Unknown, HIVES, 03/29/17) hydrocodone (Unverified Adverse Reaction, Intermediate, DYSPNEA, HIVES, ) oxybutynin (Verified Adverse Reaction, Mild, sores in mouth, 03/29/17) Uncoded Allergies: PAPER TAPE (Allergy, Unknown, BLISTERS/SORES, 07/10/15) [id number] Hx Patient Social History Marrital Status: Living Status: lives independently Employed/Student: retired Alcohol Use: Denies Use Recreational Drug Use: No Smoking Status: Current Everyday Smoker Type Used: Cigarettes Recent Foreign Travel: No Contact w/other who traveled: No Recent Hopitalizations: No Recent Infectious Disease Expo: No Physical Abuse Screen: No Sexual Abuse: No Immunizations Up To Date Tetanus Booster (TDap): Unknown Date of Pneumonia Vaccine: Aug 18, 2017 Date of Influenza Vaccine: Aug 18, 2017 Past Medical History Past medical history 1. Rheumatoid arthritis 2. COPD 3. Morbid obesity 4. Depression, anxiety with associated agoraphobia 5. Hypertension 6. Hypercholesterolemia 7. Gastroesophageal reflux disease 8. Irritable bowel syndrome 9. Chronic urinary incontinence 10. CVA 11. Moderate, Non-obstructive CAD 12. Asthma 13. COPD 14. Fatty Liver Disease 15. Peripheral Neuropathy 16. Prediabetes 17. Osteoarthritis 18. Tobacco Abuse 19. Insomnia 20. Chronic Pain 21. Sleep Apnea - non-compliance with CPAP 22. Obesity, BMI 38 23. Seasonal Allergies Past surgical history 1. Tonsillectomy 2. Tubal ligation 3. LEEP procedure 4. Port placement and removal 5. Bladder stimulator placement 6. Ear surgery - 1975 7. Tongue Biopsy 2011 8. Left Shoulder Surgery - 2016 9. Loop Recorder - 12/2017 Family Medical History Significant Family History: Cancer (esophageal cancer), Psychiatric Problems Family History: Dementia 19 MOTHER FH: prostate cancer son, Onset:25's - 30 Review of Systems (CHC) Constitutional: see HPI, fever, malaise, weakness EENTM: no symptoms reported Respiratory: see HPI, cough, dyspnea on exertion, hemoptysis, phlegm, short of breath, wheezing Cardiovascular: no symptoms reported Gastrointestinal: loss of appetite Genitourinary: no symptoms reported : No Musculoskeletal: no symptoms reported Psychiatric/Neurological: No Symptoms Reported Reviewed Test Results Reviewed Test Results Lab Laboratory Tests Test 06/12/18 15:52 06/12/18 16:30 06/12/18 17:01 06/13/18 02:45 Range/Units Blood Gas Puncture Site R.RADIAL Blood Gas Patient Temperature 97.2 Arterial Blood pH 7.33 *L 7.37-7.43 Arterial Blood Partial Pressure CO2 37 35-45 MMHG Arterial Blood Partial Pressure O2 71 L 79-93 MMHG Arterial Blood HCO3 20 L 23-27 MMOL/L Arterial Blood Total CO2 20.7 L 21.0-31.0 MMOL/L Arterial Blood Oxygen Saturation 96 94-100 % Arterial Blood Base Excess -5.4 L -2.5-2.5 MMOL/L Tanner Test YES-POS Blood Gas Ventilator Setting NO Blood Gas Inspired Oxygen 2 LITERS White Blood Count 8.1 5.8 4.3-11.0 10^3/uL Red Blood Count 3.64 L 3.25 L 4.35-5.85 10^6/uL Hemoglobin 11.1 L 10.1 L 11.5-16.0 G/DL Hematocrit 32 L 28 L 35-52 % Mean Corpuscular Volume 87 86 80-99 FL Mean Corpuscular Hemoglobin 30 31 25-34 PG Mean Corpuscular Hemoglobin Concent 35 36 32-36 G/DL Red Cell Distribution Width 14.9 H 14.9 H 10.0-14.5 % Platelet Count 237 229 130-400 10^3/uL Mean Platelet Volume 9.5 9.6 7.4-10.4 FL Neutrophils (%) (Auto) 70 84 H 42-75 % Lymphocytes (%) (Auto) 24 12 12-44 % Monocytes (%) (Auto) 5 5 0-12 % Eosinophils (%) (Auto) 1 0 0-10 % Basophils (%) (Auto) 0 0 0-10 % Neutrophils # (Auto) 5.7 4.8 1.8-7.8 X 10^3 Lymphocytes # (Auto) 1.9 0.7 L 1.0-4.0 X 10^3 Monocytes # (Auto) 0.4 0.3 0.0-1.0 X 10^3 Eosinophils # (Auto) 0.1 0.0 0.0-0.3 10^3/uL Basophils # (Auto) 0.0 0.0 0.0-0.1 10^3/uL Prothrombin Time 14.8 H 12.2-14.7 SEC INR Comment 1.2 0.8-1.4 Activated Partial Thromboplast Time 39 H 24-35 SEC D-Dimer 2.11 H 0.00-0.49 UG/ML Sodium Level 124 *L 132 L 135-145 MMOL/L Potassium Level 4.0 4.3 3.6-5.0 MMOL/L Chloride Level 96 L 106 98-107 MMOL/L Carbon Dioxide Level 19 L 14 L 21-32 MMOL/L Anion Gap 9 12 5-14 MMOL/L Blood Urea Nitrogen 28 H 21 H 7-18 MG/DL Creatinine 1.94 H 1.31 H 0.60-1.30 MG/DL Estimat Glomerular Filtration Rate 26 41 BUN/Creatinine Ratio 14 16 Glucose Level 94 140 H 70-105 MG/DL Lactic Acid Level 0.85 0.50-2.00 MMOL/L Calcium Level 8.2 L 7.8 L 8.5-10.1 MG/DL Corrected Calcium 8.6 8.5-10.1 MG/DL Total Bilirubin 0.8 0.1-1.0 MG/DL Aspartate Amino Transf (AST/SGOT) 45 H 5-34 U/L Alanine Aminotransferase (ALT/SGPT) 25 0-55 U/L Alkaline Phosphatase 89 40-136 U/L Troponin I < 0.30 <0.30 NG/ML C-Reactive Protein High Sensitivity > 15.00 H 0.00-0.50 MG/DL B-Type Natriuretic Peptide 424.0 H <100.0 PG/ML Total Protein 6.8 6.4-8.2 GM/DL Albumin 3.5 3.2-4.5 GM/DL Urine Color YELLOW Urine Clarity CLEAR Urine pH 5 5-9 Urine Specific [place] 1.015 L 1.016-1.022 Urine Protein NEGATIVE NEGATIVE Urine Glucose (UA) NEGATIVE NEGATIVE Urine Ketones NEGATIVE NEGATIVE Urine Nitrite NEGATIVE NEGATIVE Urine Bilirubin 1+ H NEGATIVE Urine Urobilinogen 1 NORMAL MG/DL Urine Leukocyte Esterase 1+ H NEGATIVE Urine RBC (Auto) NEGATIVE NEGATIVE Urine RBC NONE /HPF Urine WBC 0-2 /HPF Urine Squamous Epithelial Cells 0-2 /HPF Urine Crystals NONE /LPF Urine Bacteria LARGE H /HPF Urine Casts NONE /LPF Urine Mucus NEGATIVE /LPF Urine Culture Indicated YES Urine Opiates Screen NEGATIVE NEGATIVE Urine Oxycodone Screen NEGATIVE NEGATIVE Urine Methadone Screen NEGATIVE NEGATIVE Urine Propoxyphene Screen NEGATIVE NEGATIVE Urine Barbiturates Screen NEGATIVE NEGATIVE Ur Tricyclic Antidepressants Screen POSITIVE H NEGATIVE Urine Phencyclidine Screen NEGATIVE NEGATIVE Urine Amphetamines Screen NEGATIVE NEGATIVE Urine Methamphetamines Screen NEGATIVE NEGATIVE Urine Benzodiazepines Screen NEGATIVE NEGATIVE Urine Cocaine Screen NEGATIVE NEGATIVE Urine Cannabinoids Screen NEGATIVE NEGATIVE Phosphorus Level 3.1 2.3-4.7 MG/DL Magnesium Level 2.1 1.8-2.4 MG/DL Triglycerides Level 100 <150 MG/DL Cholesterol Level 124 < 200 MG/DL LDL Cholesterol Direct 62 1-129 MG/DL VLDL Cholesterol 20 5-40 MG/DL HDL Cholesterol 36 L 40-60 MG/DL Test 06/13/18 06:57 06/13/18 06:58 Range/Units Lactic Acid Level 1.89 0.50-2.00 MMOL/L Blood Gas Puncture Site R.RADIAL Blood Gas Patient Temperature 101.3 Arterial Blood pH 7.35 L 7.37-7.43 Arterial Blood Partial Pressure CO2 39 35-45 MMHG Arterial Blood Partial Pressure O2 41 L 79-93 MMHG Arterial Blood HCO3 21 L 23-27 MMOL/L Arterial Blood Total CO2 21.6 21.0-31.0 MMOL/L Arterial Blood Oxygen Saturation 74 L 94-100 % Arterial Blood Base Excess -3.8 L -2.5-2.5 MMOL/L Tanner Test YES-POS Blood Gas Ventilator Setting NO Blood Gas Inspired Oxygen 2 LITERS Radiology Date of Exam: 06/12/18 CT HEAD WO-R/O STROKE EXAM: CT HEAD WO-R/O STROKE INDICATION: Leg weakness. Altered mental status. Slurred speech. COMPARISON: CT head without contrast from 08/24/2017. FINDINGS: No intracranial hemorrhage, mass effect, hydrocephalus, or extra-axial fluid collections. No CT evidence of acute infarction. Osseous structures are intact. The visualized paranasal sinuses and mastoids are unremarkable. IMPRESSION: No acute intracranial CT findings. Date of Exam: 06/12/18 CHEST 1 VIEW, AP/PA ONLY INDICATION: Wheezing. EXAMINATION: Portable erect AP chest at 4:42 p.m. FINDINGS: The heart is enlarged and has increased in size since the prior exam of 04/17/2018. Furthermore, in the interval since the prior study, alveolar/interstitial pulmonary infiltrates have developed in the right suprahilar region, the left upper lung and the left midlung. These findings could be secondary to pulmonary edema, pneumonia/atelectasis or a combination of all three. The periphery of the right lung is generally clear and there is no significant pleural effusion in either lung base. The mediastinum is not widened. The osseous structures are intact. There is a loop recorder device again noted overlying the left thorax. IMPRESSION: The appearance of the chest has worsened since the prior study as the heart has increased in size and alveolar/interstitial pulmonary infiltrates have developed, bilaterally, particularly on the left. These abnormal parenchymal densities may be related to pulmonary edema, pneumonia, atelectasis or a combination of all three. A followup exam would be recommended for continued evaluation. Date of Exam: 06/13/18 CHEST 1 VIEW, AP/PA ONLY INDICATION: Followup of infiltrates with shortness of breath. FINDINGS: Bilateral dense infiltrates noted in the upper lobes bilaterally. Moderate perihilar infiltrate noted in the left lower lobe as well. Right lower lung appears clear. The heart is mildly enlarged and has increased in size since 04/17/2018. No evidence of pleural effusion. No pneumothorax. IMPRESSION: 1. Increasing cardiac size. 2. Bilateral infiltrates present increasing in density since previous exam. These could represent inflammatory infiltrates or increasing pulmonary edema. Physical Exam-([facility]C) Physical Exam Vital Signs VS - Last 72 Hours, by Label 06/12/18 06/12/18 06/12/18 06/12/18 15:37 15:40 15:45 15:49 Temp 97.2 Pulse 75 75 Resp 22 22 B/P (MAP) 90/54 (66) 90/54 Pulse Ox 90 90 97 O2 Delivery Nasal Cannula Nasal Cannula O2 Flow Rate 2.00 2.00 06/12/18 06/12/18 06/12/18 06/12/18 15:56 16:30 19:21 19:43 Temp 97.2 97.2 Pulse 75 75 Resp 22 22 B/P (MAP) 95/80 102/51 (85) Pulse Ox 92 96 96 96 O2 Delivery Nasal Cannula Nasal Cannula Nasal Cannula Nasal Cannula O2 Flow Rate 2.00 2.00 2.00 2.00 06/12/18 06/12/18 06/12/18 06/12/18 20:05 20:05 20:07 20:19 Temp 99.0 Pulse 108 103 99 Resp 26 B/P (MAP) 137/66 (89) Pulse Ox 97 97 96 O2 Delivery Nasal Cannula Nasal Cannula O2 Flow Rate 2.00 2.00 06/12/18 06/12/18 06/12/18 06/12/18 20:30 21:00 22:00 22:32 Pulse 101 93 Resp 15 22 B/P (MAP) 124/73 (90) 92/69 (77) Pulse Ox 96 94 92 95 O2 Delivery Nasal Cannula Nasal Cannula Nasal Cannula Nasal Cannula O2 Flow Rate 2.00 2.00 2.00 2.00 06/12/18 06/12/18 06/13/18 06/13/18 23:00 23:03 00:00 00:00 Temp 98.5 Pulse 97 90 Resp 24 17 B/P (MAP) 102/52 (69) 97/55 (69) Pulse Ox 91 93 94 O2 Delivery Nasal Cannula Nasal Cannula Nasal Cannula O2 Flow Rate 2.00 2.00 2.00 06/13/18 06/13/18 06/13/18 06/13/18 01:00 01:00 02:00 02:26 Pulse 90 85 85 Resp 27 26 B/P (MAP) 103/63 (76) 99/63 (75) Pulse Ox 100 100 98 O2 Delivery Nasal Cannula Nasal Cannula Nasal Cannula O2 Flow Rate 2.00 2.00 2.00 06/13/18 06/13/18 06/13/18 06/13/18 03:00 04:00 04:00 05:00 Pulse 87 87 90 Resp 22 24 28 B/P (MAP) 109/63 (78) 117/70 (86) 120/64 (82) Pulse Ox 100 99 93 96 O2 Delivery Nasal Cannula Nasal Cannula Nasal Cannula Nasal Cannula O2 Flow Rate 2.00 2.00 2.00 2.00 06/13/18 06/13/18 06/13/18 06/13/18 05:52 06:00 06:22 06:42 Temp 100.7 101.5 Pulse 100 Resp 29 B/P (MAP) 103/60 (74) Pulse Ox 94 96 O2 Delivery Nasal Cannula Nasal Cannula O2 Flow Rate 2.00 2.00 06/13/18 06/13/18 06/13/18 06/13/18 07:00 07:00 07:06 08:00 Temp 101.3 Pulse 104 105 Resp 31 B/P (MAP) 99/58 (72) Pulse Ox 95 94 O2 Delivery Nasal Cannula Nasal Cannula O2 Flow Rate 2.00 2.00 06/13/18 06/13/18 06/13/18 06/13/18 08:00 08:15 09:00 10:00 Temp 99.3 Pulse 103 84 87 Resp 26 21 26 B/P (MAP) 107/43 (64) 103/48 (66) 109/58 (75) Pulse Ox 99 98 92 O2 Delivery Nasal Cannula Nasal Cannula Nasal Cannula O2 Flow Rate 2.00 2.00 2.00 06/13/18 06/13/18 06/13/18 06/13/18 10:34 11:00 12:00 12:00 Temp 99.6 Pulse 100 103 Resp 22 30 B/P (MAP) 116/51 (72) 108/61 (77) Pulse Ox 96 93 91 O2 Delivery Nasal Cannula Nasal Cannula Nasal Cannula O2 Flow Rate 2.00 2.00 2.00 06/13/18 06/13/18 06/13/18 06/13/18 12:00 13:00 13:00 13:49 Pulse 98 98 Resp 29 B/P (MAP) 127/61 (83) Pulse Ox 94 95 O2 Delivery Nasal Cannula Nasal Cannula Nasal Cannula O2 Flow Rate 2.00 2.00 4.00 06/13/18 06/13/18 06/13/18 06/13/18 14:00 14:16 15:00 16:00 Pulse 114 115 Resp 27 32 B/P (MAP) 140/57 (84) 101/72 (82) Pulse Ox 92 92 94 94 O2 Delivery Nasal Cannula Nasal Cannula Nasal Cannula Nasal Cannula O2 Flow Rate 4.00 4.00 4.00 2.00 06/13/18 06/13/18 06/13/18 06/13/18 16:00 17:00 17:27 18:00 Pulse 112 114 114 123 Resp 38 36 36 38 B/P (MAP) 116/64 (81) 126/70 (88) 128/74 (92) Pulse Ox 94 94 97 97 O2 Delivery Nasal Cannula NIV Bilevel NIV Bilevel O2 Flow Rate 4.00 40.00 40.00 55.00 06/13/18 06/13/18 06/13/18 06/13/18 18:35 19:00 19:00 20:00 Pulse 123 144 144 Resp 28 30 B/P (MAP) 138/72 (94) Pulse Ox 97 93 94 O2 Delivery NIV Bilevel NIV Bilevel O2 Flow Rate 55.00 55.00 FiO2 55 06/13/18 06/13/18 06/13/18 06/13/18 20:00 21:00 21:40 22:00 Pulse 112 104 100 122 Resp 36 36 41 B/P (MAP) 117/52 (73) 127/51 (76) Pulse Ox 98 94 86 O2 Delivery NIV Bilevel NIV Bilevel O2 Flow Rate 55.00 55.00 06/13/18 06/13/18 06/13/18 06/13/18 22:23 22:25 22:28 22:30 Pulse 130 130 129 126 Resp 37 22 47 25 B/P (MAP) 179/99 (125) 177/83 (114) 145/90 (108) 142/79 (100) Pulse Ox 96 94 89 O2 Delivery Mechanical Ventilator Mechanical Ventilator Mechanical Ventilator Mechanical Ventilator O2 Flow Rate 100.00 100.00 100.00 100.00 06/13/18 06/13/18 06/13/18 06/13/18 22:35 22:35 22:40 22:45 Pulse 116 116 116 114 Resp 29 22 36 27 B/P (MAP) 118/61 (80) 124/87 (99) 118/63 (81) Pulse Ox 93 94 90 92 O2 Delivery Mechanical Ventilator Mechanical Ventilator Mechanical Ventilator O2 Flow Rate 100.00 100.00 100.00 FiO2 100 06/13/18 06/13/18 06/13/18 06/13/18 22:57 23:00 23:15 23:30 Temp 99.5 Pulse 116 108 98 95 Resp 29 34 31 31 B/P (MAP) 113/55 (74) 126/67 (86) 130/69 (89) Pulse Ox 93 98 99 99 O2 Delivery Mechanical Ventilator Mechanical Ventilator Mechanical Ventilator O2 Flow Rate 75.00 75.00 75.00 FiO2 100 06/13/18 06/13/18 06/14/18 06/14/18 23:34 23:45 00:00 00:00 Temp 99.2 Pulse 100 92 90 Resp 30 B/P (MAP) 137/78 (97) 137/82 (100) Pulse Ox 99 99 98 O2 Delivery Mechanical Ventilator Mechanical Ventilator Mechanical Ventilator O2 Flow Rate 75.00 75.00 FiO2 75 06/14/18 06/14/18 06/14/18 06/14/18 00:15 00:30 00:45 00:56 Pulse 88 86 86 83 Resp 27 26 B/P (MAP) 138/85 (102) 141/85 (103) 133/85 (101) Pulse Ox 99 99 98 99 O2 Delivery Mechanical Ventilator Mechanical Ventilator Mechanical Ventilator O2 Flow Rate 75.00 75.00 75.00 FiO2 75 06/14/18 06/14/18 06/14/18 06/14/18 01:00 01:00 01:15 01:30 Pulse 83 83 82 81 Resp 24 B/P (MAP) 136/88 (104) 132/87 (102) 132/84 (100) Pulse Ox 98 97 97 O2 Delivery Mechanical Ventilator Mechanical Ventilator Mechanical Ventilator O2 Flow Rate 65.00 65.00 65.00 06/14/18 06/14/18 06/14/18 06/14/18 01:45 02:00 02:11 02:15 Pulse 80 80 80 80 Resp 24 21 24 B/P (MAP) 130/82 (98) 130/83 (99) 133/79 (97) Pulse Ox 98 98 98 O2 Delivery Mechanical Ventilator Mechanical Ventilator Mechanical Ventilator O2 Flow Rate 65.00 65.00 65.00 06/14/18 06/14/18 06/14/18 06/14/18 02:30 02:45 03:00 03:15 Pulse 81 89 80 78 Resp 24 B/P (MAP) 97/63 (74) 105/61 (76) 115/68 (84) 119/68 (85) Pulse Ox 98 100 100 100 O2 Delivery Mechanical Ventilator Mechanical Ventilator Mechanical Ventilator Mechanical Ventilator O2 Flow Rate 65.00 65.00 65.00 65.00 06/14/18 06/14/18 06/14/18 06/14/18 03:30 03:45 03:47 04:00 Temp 99.2 Pulse 77 89 78 Resp 23 B/P (MAP) 119/71 (87) 112/60 (77) Pulse Ox 100 96 100 O2 Delivery Mechanical Ventilator Mechanical Ventilator O2 Flow Rate 65.00 55.00 FiO2 65 06/14/18 06/14/18 06/14/18 06/14/18 04:00 04:00 04:15 04:30 Pulse 85 81 82 Resp B/P (MAP) 104/57 (73) 107/65 (79) Pulse Ox 98 97 97 99 O2 Delivery Mechanical Ventilator Mechanical Ventilator Mechanical Ventilator Mechanical Ventilator O2 Flow Rate 55.00 55.00 55.00 FiO2 55 06/14/18 06/14/18 06/14/18 06/14/18 04:45 05:00 05:15 05:30 Pulse 80 79 79 78 Resp 22 B/P (MAP) 99/57 (71) 100/56 (71) 99/57 (71) 103/55 (71) Pulse Ox 99 99 99 99 O2 Delivery Mechanical Ventilator Mechanical Ventilator Mechanical Ventilator Mechanical Ventilator O2 Flow Rate 55.00 55.00 55.00 55.00 06/14/18 06/14/18 06/14/18 06/14/18 05:43 05:45 06:00 06:15 Pulse 80 78 76 77 Resp B/P (MAP) 103/55 102/55 (71) 99/56 (70) Pulse Ox 98 98 97 O2 Delivery Mechanical Ventilator Mechanical Ventilator Mechanical Ventilator O2 Flow Rate 55.00 55.00 55.00 06/14/18 06/14/18 06/14/18 06/14/18 06:30 06:33 06:45 07:00 Pulse 82 81 89 86 Resp B/P (MAP) 129/65 (86) Pulse Ox 95 95 99 O2 Delivery Mechanical Ventilator Mechanical Ventilator O2 Flow Rate 55.00 55.00 FiO2 45 06/14/18 06/14/18 06/14/18 06/14/18 07:00 07:55 07:55 08:00 Temp 98.1 Pulse 86 79 Resp B/P (MAP) 108/60 (76) 92/59 (70) Pulse Ox 98 96 O2 Delivery Mechanical Ventilator Mechanical Ventilator Mechanical Ventilator Mechanical Ventilator O2 Flow Rate 55.00 55.00 55.00 FiO2 55 9/406/14/18 06/14/18 06/14/18 08:15 08:21 09:00 09:28 Pulse 76 76 77 Resp 23 23 25 B/P (MAP) 97/58 (71) 94/56 (69) 98/58 Pulse Ox 96 95 95 O2 Delivery Mechanical Ventilator Mechanical Ventilator O2 Flow Rate 55.00 55.00 FiO2 45 06/14/18 06/14/18 06/14/18 06/14/18 10:00 10:57 11:00 11:40 Temp 98.4 Pulse 80 90 90 Resp 46 30 28 B/P (MAP) 98/58 (71) 108/55 (72) Pulse Ox 97 95 99 O2 Delivery Mechanical Ventilator Mechanical Ventilator Mechanical Ventilator O2 Flow Rate 55.00 55.00 50.00 FiO2 45 06/14/18 06/14/18 06/14/18 06/14/18 11:40 12:00 12:15 12:30 Pulse 98 109 101 Resp 20 32 29 B/P (MAP) 171/112 (131) 122/49 (73) 133/69 (90) Pulse Ox 99 99 98 O2 Delivery Mechanical Ventilator Mechanical Ventilator Mechanical Ventilator Mechanical Ventilator O2 Flow Rate 50.00 50.00 50.00 FiO2 50 06/14/18 06/14/18 06/14/18 06/14/18 13:00 13:30 14:00 14:16 Pulse 98 99 95 93 Resp 28 25 23 B/P (MAP) 115/64 (81) 115/63 (80) Pulse Ox 99 99 98 O2 Delivery Mechanical Ventilator Mechanical Ventilator O2 Flow Rate 55.00 55.00 FiO2 45 06/14/18 06/14/18 06/14/18 06/14/18 14:47 15:00 15:56 16:00 Pulse 93 93 92 Resp 27 22 25 B/P (MAP) 144/68 113/61 (78) 132/75 (94) Pulse Ox 96 96 96 O2 Delivery Mechanical Ventilator Mechanical Ventilator O2 Flow Rate 55.00 55.00 FiO2 45 Capillary Refill : Greater Than 3 SecondsLess Than 3 Seconds General Appearance: WD/WN, moderate distress, obese Eyes: Bilateral Eye Normal Inspection, Bilateral Eye EOMI HEENT: normal ENT inspection; No scleral icterus (R), No scleral icterus (L), No photophobia Neck: non-tender, full range of motion, supple, normal inspection Respiratory: respiratory distress, decreased breath sounds, accessory muscle use, wheezing, other (coarse throughout) Cardiovascular: no gallop, tachycardia Peripheral Pulses: 2+ Radial Pulses (R), 2+ Radial Pulses (L) Gastrointestinal: normal bowel sounds, non tender, soft, no pulsatile mass Rectal: deferred Extremities: no calf tenderness, slow capillary refill Neurologic/Psychiatric: 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 tested, alert, normal mood/affect, oriented x 3, motor weakness Skin: pallor Assessment/Plan Assessment/Plan Admission Dx Severe Sepsis Multilobar PNA Acute Respiratory Failure Acute Renal Insufficiency Elevated LFT Bacturia Hyponatremia Anemia Cardiomegaly Rheumatoid Arthritis Tobacco Abuse Elevated D-Dimer Depression Anxiety Obesity, BMI 38 Admission Status: Inpatient Order (span 2 midnights) Reason for Inpatient Admission: treatment and stabilization of admission conditions (1) Severe sepsis Status: Acute Assessment & Plan: 06/13 -secondary to multi-lobar PNA -Day 2 Rocephin, Azithromycin -hypotension, improved after fluid bolus; febrile to 101.5, tachycardia and tachypnea -hydrocortizone 100 mg IV in ED, will start on prednisone (pt with solumedrol allergy) -CRP >15 (2) Multilobar lung infiltrate Status: Acute Assessment & Plan: 06/13 -bilateral upper lobe infiltrates and left lower lobe infiltrate -day 2 rocephin and azithromycin -start prednisone 40 mg PO daily -start bipap to see if that improves pt's respiratory status -repeat CXR in AM; can get CT if needed, pt reports she just requires benadryl with contrast and can tolerate ok - will hold off for now due to DEBRA -consult to Dr. Bautista (3) Hyponatremia Status: Acute Assessment & Plan: 06/13 -pt with previous history of hospitalization due to altered mental status and hyponatremia -Na 124 --> 132 -recheck in AM (4) Acute renal injury due to sepsis Status: Acute Assessment & Plan: 06/13 -baseline Cr 0.87 (checked in office on 05/25/18) -Cr 1.94 --> 1.31 -BUN 28 --> 21 -GFR 26 --> 41 -monitor renal function (5) Acute respiratory failure with hypoxia Status: Acute Assessment & Plan: 06/13 -pt initially placed on NC and given multiple duonebs in ED -IV hydrocortizone, now PO prednisone (allergy to solumedrol) -MAT protocol -at the time of exam pt has NC but with significant work of breathing, tachypnea and sats dropping into the 80's --> will place on bipap to see if that decreases work of breathing -consult to Dr. Bautista for pulmonary management (6) Rheumatoid arthritis Status: Chronic Assessment & Plan: 06/13 -pt on Xeljanz 5 mg BID - hold for now Qualifiers: Qualified Codes: M06.9 - Rheumatoid arthritis, unspecified (7) Elevated LFTs Status: Acute Assessment & Plan: 06/13 -pt's history notes a history of fatty liver disease -AST 45 on admission -recheck in AM (8) Hemoptysis Status: Acute Assessment & Plan: 06/13 -called by nursing staff last night that patient was coughing up thick bloody sputum -pt with RA and on Xeljanz -will check Quanterferon Gold for TB and send sputum for culture -place in isolation in negative pressure room until TB ruled out, although chances are low -pt states she had TB test before starting Xeljanz that was negative (9) Anemia Assessment & Plan: 06/13 -Hgb 11.1 --> 10.1 -recheck in AM Qualifiers: Qualified Codes: D64.9 - Anemia, unspecified (10) Cardiomegaly Status: Acute Assessment & Plan: 06/13 -CXR from yesterday and this AM both note significant enlargement from previous CXR on 04/17/18 -will check echo in AM (11) Sleep apnea Status: Chronic Assessment & Plan: -pt has CPAP at home but reported to nursing staff that she does not wear it -requiring BiPap now for acute respiratory failure -encourage compliance with CPAP use after discharge Qualifiers: Qualified Codes: G47.33 - Obstructive sleep apnea (adult) (pediatric) (12) Obesity (BMI 30-39.9) Status: Chronic (13) Coronary artery disease Status: Chronic Assessment & Plan: Moderate, non-obstructive CAD per history Qualifiers: Qualified Codes: I25.10 - Atherosclerotic heart disease of tang[place] coronary artery without angina pectoris (14) Anxiety Status: Chronic Assessment & Plan: 06/13 -clinic notes show that patient is being tapered off her Xanax -pt appears extremely anxious at the time of exam -IV ativan now while placing patient on Bipap (15) Bacteria in urine Status: Acute Assessment & Plan: 06/13 -large bacteria on UA -urine cx pending -pt on rocephin for PNA which should provide adequate coverage until cx results available (16) Tobacco abuse Status: Chronic Assessment & Plan: 06/13 -cessation encouraged (17) Chronic pain Status: Chronic Assessment & Plan: 06/13 -pt on chronic Tramadol, 1-2 tabs 4 times per day -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 -polyneuropathy, on gabapentin -resume home meds Qualifiers: Qualified Codes: G89.29 - Other chronic pain (18) Weakness Status: Acute Assessment & Plan: 06/13 -pt reports that she has gotten weaker over the last few days and had a few falls -PT to eval and treat (19) History of stroke Status: Chronic Assessment & Plan: 2016, pt has some residual hemiplegia continue home meds (20) DVT prophylaxis Status: Acute Assessment & Plan: 40 mg Lovenox SQ daily Clinical Quality Measures DVT/VTE Risk/Contraindication: Risk Factor Score Per Nursin RFS Level Per Nursing on Admit: 4+=Very High Sepsis: Within 3hrs of presentation: Admin fluids, Admin 30ml/kg IBW due to BMI>30, Admin ABX, Blood cultures prior to ABX's, Focus exam, Lactate level Pneumonia: Pseudomonal Risk: COPD Copy Copies To 1: [facility]/LATA MORRISON DO Jun 13, 2018 10:15
[2018-06-13] MEDS ORDERED: ALPRAZolam 0.5 MG (XANAX) TAB PO PRN (15:30)
[2018-06-13] MEDS ORDERED: CYCLOBENZAPRINE 10 MG (FLEXERIL) TAB PO PRN (15:30)
[2018-06-13] MEDS ORDERED: predniSONE 20 MG TAB PO NR (15:50)
[2018-06-13] MEDS ORDERED: LEVO5TAB12 PO (16:05)
[2018-06-13] MEDS ORDERED: DICY20TA10 PO (16:05)
[2018-06-13] MEDS ORDERED: ONDN4T PO (16:05)
[2018-06-13] MEDS ORDERED: PANT40TA3 PO (16:05)
[2018-06-13] MEDS ORDERED: VENL150C98 PO (16:05)
[2018-06-13] MEDS ORDERED: ALPR0.5T7 PO (16:05)
[2018-06-13] MEDS ORDERED: SIMV40TA4 PO (16:05)
[2018-06-13] MEDS ORDERED: FLUT9.9S NS (16:05)
[2018-06-13] MEDS ORDERED: TRAM50TA2 PO (16:05)
[2018-06-13] MEDS ORDERED: GABA600T2 PO (16:05)
[2018-06-13] MEDS ORDERED: ZOLP5TAB PO (16:06)
[2018-06-13] MEDS ORDERED: ZOLPIDEM 5 MG (AMBIEN) TAB PO PRN (16:30)
[2018-06-13] MEDS ORDERED: DICYCLOMINE 10 MG (BENTYL) CAP PO PRN (16:30)
[2018-06-13] MEDS: ONDANSETRON 4 MG (ZOFRAN) ORAL DISSOLVE TAB PO SCH (17:08)
[2018-06-13] MEDS: ENOXAPARIN 40 MG/0.4 ML (LOVENOX) SYR SC SCH (17:09)
[2018-06-13] MEDS ORDERED: LORazepam INJ 2 MG/ML (ATIVAN) VIAL IVP ONE ×2 (17:15→18:15)
[2018-06-13] MEDS ORDERED: LORazepam INJ 2 MG/ML (ATIVAN) VIAL IVP PRN (17:15)
[2018-06-13] MEDS: cefTRIAXone 1 GM/NS 50 ML IVPB IV SCH ×2 (18:30)
[2018-06-13] MEDS: RT-ALBUTEROL/IPRATROPIUM 3 ML (DUONEB) VIAL INH PRN (18:35)
[2018-06-13 18:51] LABS: ABG OXYGEN SATURATION 98 % (94-100); ABG PCO2 42 MMHG (35-45); ABG PO2 113 MMHG (79-93)
[2018-06-13 18:53] LABS: ALLENS TEST YES-POS
[2018-06-13 18:54] LABS: PATIENT TEMP 100.3; VENTILATOR NO
[2018-06-13 18:55] LABS: ABG PH 7.34 (7.37-7.43)
[2018-06-13] MEDS ORDERED: NS (IVPB) 100 ML ONE (19:28)
[2018-06-13] MEDS ORDERED: HALOPERIDOL 5 MG/ML (HALDOL) AMP ONE (19:28)
[2018-06-13] MEDS ORDERED: HALOPERIDOL 5 MG/ML (HALDOL) AMP IM ONE (19:30)
[2018-06-13] MEDS: DEXMEDETOMIDINE INJECTION 400 MCG in NS (IVPB) 96 ML IV SCH ×2 (19:45→23:40)
[2018-06-13] MEDS ORDERED: FUROSEMIDE 40 MG/4 ML INJ (LASIX) ONE (20:04)
[2018-06-13] MEDS ORDERED: FUROSEMIDE 40 MG/4 ML INJ (LASIX) IVP ONE (20:15)
[2018-06-13] MEDS ORDERED: LACTATED RINGERS 1,000 ML IV ONE (20:19)
[2018-06-13] MEDS ORDERED: diphenhydrAMINE 50 MG/ML INJ (BENADRYL) ONE (20:53)
[2018-06-13] MEDS ORDERED: GABAPENTIN 600 MG (NEURONTIN) TAB PO SCH (21:00)
[2018-06-13] MEDS ORDERED: guaiFENesin (MUCINEX) 600 MG TAB PO SCH (21:00)
[2018-06-13] MEDS ORDERED: TOFACITINIB CITRATE 5 MG PO SCH (21:00)
[2018-06-13] MEDS: meTOprolol TARTRATE 25 MG (LOPRESSOR) TABLET PO SCH (21:23)
[2018-06-13] MEDS: SIMvastatin 40 MG (ZOCOR) TAB PO SCH (21:24)
[2018-06-13] MEDS ORDERED: LORazepam INJ 2 MG/ML (ATIVAN) VIAL IV ONE (21:30)
[2018-06-13] MEDS ORDERED: diphenhydrAMINE 50 MG/ML INJ (BENADRYL) IV ONE (21:30)
[2018-06-13] MEDS ORDERED: PROPOFOL DRIP (ICU) 100 ML IV ONE (21:40)
--- NOTE | 2018-06-13 22:49 | Anesthesia-Procedure Note ---
Procedures/Interventions Procedure Start/Stop/Diagnosis Date of Procedure: Jun 13, 2018 Start Time: 09:55 Preprocedural Diagnosis: pneumonia, possible TB, respiratory distress Brief History [id number]: Called to ICU1 for intubation. Upon arrival, two RNs and two RT's were holding the patient down and attempting to place restraints. Patient was very uncooperative and not tolerating BiPap. I talked with the patient and made several attempts to ask her questions; however, she was unable to open her eyes and was nonverbal except for shaking her head back and forth and shouting into the BiPap mask. The patients SaO2 was 90s. The patient had received several IV medications, including Ativan, Haldol, and Precedex since 1699, in order to attempt relaxation so that the patient would stop hyperventilating and tolerate the BiPap (respiratory rate in the 40s at this time). Once the various medications proved unsuccessful, the EICU physician ordered the patient be intubated. I reviewed lab work, including K level of 4.2, brief history, and list of allergies. The exact time of NPO status could not be determined; however , the RN knew she hadn't eaten since 1699 because the BiPap was placed at that time. Since the patient had already received several anxiolytics, I chose to withhold the versed and gave Propofol 100mg and Succs 100 mg. Upon attempting to give the intubation medication, the patients IV infiltrated. I made 4 attempts to restart another IV and placed a 22g IV in her left hand. With a patent IV, the intubation medications were given (as noted previously) and the patient was intubated easily with an 8.0 ett. This size was chosen per RT as they received word that Dr. Bautista planned on performing a bronchoscopy on this patient in the near future. ETC02 color change was confirmed and the ett was noted at the lip at 22 cm. Chest xray was ordered and RT received vent orders from EICU. Report was given to Nicole Escobedo RN Stop Time: 10:38 Intubation Reason Intubation/Diagnosis: pneumoia, possible TB, respiratory distress with failed BiPap RSI: Yes 100% pre-Ox, [id number]: Yes Intubation Method: orotracheal MAC (size used 1-4): 4 Videoscope used: No Grade View: 1 Medications: Propofol (100), Succinylcholine (100) Mask Ventilation: positive Positive End Tide CO2: Yes Breath Sounds after Intubation: bilateral-equal ETT Securred @ (cm): 22 Intubated with ease: Yes Intubation Complications: no complications Post Intubation Xray-done: Yes Progress After intubation, patient was started on a Propofol drip per EICU physician orders. Patient stopped fighting vent and HR returned to 100-110. NIBP 120s/ 70s. SaO2 92-96%. Vent settings per EICU physician. Care turned over to: BRANDON Giraldo SHANNA R CRNA Jun 13, 2018 22:49
[2018-06-13 23:08] LABS: ABG BASE EXCESS -4.9 MMOL/L (-2.5-2.5); ABG OXYGEN SATURATION 98 % (94-100); ABG PCO2 63 MMHG (35-45); ABG PO2 111 MMHG (79-93); ABG TCO2 24.1 MMOL/L (21.0-31.0); ALLENS TEST YES-POS
[2018-06-13 23:09] LABS: INSPIRED O2 100%; PATIENT TEMP 99.5; VENTILATOR YES
[2018-06-13 23:12] LABS: ABG PH 7.18 (7.37-7.43)
[2018-06-13] MEDS ORDERED: NS IV 1000 ML 1,000 ML ONE (23:14)
[2018-06-13] MEDS: AZITHROMYCIN 500 MG/NS 250 ML IVPB IV SCH ×2 (23:41)
[2018-06-14] VITALS (50 sets, daily range): BP systolic 92–171; BP diastolic 49–112
[2018-06-14] MEDS: RT-ALBUTEROL/IPRATROPIUM 3 ML (DUONEB) VIAL INH SCH ×7 (00:28→22:02)
[2018-06-14 01:02] LABS: ABG BASE EXCESS -1.8 MMOL/L (-2.5-2.5); ABG OXYGEN SATURATION 100 % (94-100); ABG PCO2 38 MMHG (35-45); ABG PH 7.39 (7.37-7.43); ABG PO2 135 MMHG (79-93); ABG TCO2 23.5 MMOL/L (21.0-31.0)
[2018-06-14 01:03] LABS: ALLENS TEST YES-POS; INSPIRED O2 75%; PATIENT TEMP 99.2; VENTILATOR YES
[2018-06-14 03:58] LABS: BASOPHILS % (AUTO) 0 % (0-10); EOSINOPHILS % (AUTO) 0 % (0-10); HEMATOCRIT 32 % (35-52); HEMOGLOBIN 10.9 G/DL (11.5-16.0); LYMPHOCYTES # (AUTO) 0.6 X 10^3 (1.0-4.0); LYMPHOCYTES % (AUTO) 10 % (12-44); MEAN CORPUSCULAR HEMOGLOBIN 30 PG (25-34); MEAN CORPUSCULAR HGB CONC 34 G/DL (32-36); MEAN CORPUSCULAR VOLUME 88 FL (80-99); MEAN PLATELET VOLUME 9.9 FL (7.4-10.4); MONOCYTES # (AUTO) 0.4 X 10^3 (0.0-1.0); MONOCYTES % (AUTO) 7 % (0-12); NEUTROPHILS # (AUTO) 5.2 X 10^3 (1.8-7.8); NEUTROPHILS % (AUTO) 83 % (42-75); PLATELET COUNT 258 10^3/uL (130-400); RED BLOOD COUNT 3.62 10^6/uL (4.35-5.85); RED CELL DISTRIBUTION WIDTH 15.6 % (10.0-14.5); WHITE BLOOD COUNT 6.3 10^3/uL (4.3-11.0)
[2018-06-14 04:14] LABS: ALANINE AMINOTRANSFERASE 22 U/L (0-55); ALBUMIN 3.1 GM/DL (3.2-4.5); ALKALINE PHOSPHATASE 81 U/L (40-136); BILIRUBIN,TOTAL 0.5 MG/DL (0.1-1.0); BUN/CREATININE RATIO 13; CALCIUM 8.2 MG/DL (8.5-10.1); CARBON DIOXIDE 21 MMOL/L (21-32); CHLORIDE 109 MMOL/L (98-107); GFR ESTIMATED > 60; GLUCOSE 145 MG/DL (70-105); MAGNESIUM 2.1 MG/DL (1.8-2.4); PHOSPHORUS 1.7 MG/DL (2.3-4.7); POTASSIUM 4.5 MMOL/L (3.6-5.0); SODIUM 138 MMOL/L (135-145); TOTAL PROTEIN 6.3 GM/DL (6.4-8.2)
[2018-06-14] MEDS: POTASSIUM CL 10MEQ/50ML IVPB 50 ML IV SCH (04:32)
[2018-06-14] MEDS: MAGNESIUM 1 GM/100 ML IVPB 100 ML IV SCH (04:33)
[2018-06-14] MEDS: KCL 20 MEQ TAB (K-DUR) PO SCH (04:33)
--- NOTE | 2018-06-14 05:21 | Pulmonary Consultation ---
History of Present Illness History of Present Illness Date of Consultation 06/14/18 05:13 Time Seen by Provider: 05:13 Date of Admission History of Present Illness 63yo poor historian presented to ED on 06/12/18 at around 1600 secondary to falls x2 progressive weakness, coughing and SOB. PT was found to be hypoxic upon admission and was placed on 2 liters of oxygen. Pt was admitted to ICU with severe sepsis protocol and continued to decline. Pt was placed in TB isolation secondary to hemoptysis. She continued to have respiratory decline and BiPAP was initiated. I was consulted on 06/13/18 at 1700 and notified at 1920. I decreased IVF and gave lasix 60mg IV X 1. PT continued to decline and also became combative. Anesthesia intubated patient around 2200. BNP was 424 on admission and is now 934. No leukocytosis however does have a Tm of 101.5. LA has been normal since admission. TB quantiferon is pending. Sputum has been sent for AFB. Unable to obtain any history or ROS from pt secondary to her being intubated on vent. No family currently at bedside. Allergies and Home Medications Allergies Coded Allergies: Iodinated Contrast- Oral and IV Dye (Verified Allergy, Intermediate, ) doxycycline (Unverified Allergy, Intermediate, FACIAL SWELLING, 03/29/17) fluticasone furoate (Verified Allergy, Intermediate, N/V, 03/29/17) paroxetine (Verified Allergy, Intermediate, 03/29/17) vilanterol (Verified Allergy, Intermediate, N/V, 03/29/17) methylprednisolone (Unverified Allergy, Mild, flushing and skin burning and eye itching, 03/29/17) codeine (Verified Allergy, Unknown, HIVES, 03/29/17) hydrocodone (Unverified Adverse Reaction, Intermediate, DYSPNEA, HIVES, ) oxybutynin (Verified Adverse Reaction, Mild, sores in mouth, 03/29/17) Uncoded Allergies: PAPER TAPE (Allergy, Unknown, BLISTERS/SORES, 07/10/15) Home Medications Albuterol Sulfate 1 Puff Puff, 2 PUFF IH Q4H PRN for SHORTNESS OF BREATH, ( Reported) 1 PUFF = 90 MCG Alprazolam 0.5 Mg Tablet, 0.5 MG PO BID PRN for ANXIETY, (Reported) Aripiprazole 5 Mg Tablet, 5 MG PO DAILY, (Reported) Clopidogrel Bisulfate 75 Mg Tablet, 75 MG PO DAILY Prescribed by: CHELSI CORDOBA on 09/01/17 1014 Cyclobenzaprine HCl 10 Mg Tablet, 10 MG PO BID PRN for MUSCLE SPASMS, (Reported) Dicyclomine HCl 20 Mg Tablet, 20 MG PO BID, (Reported) Dicyclomine HCl 20 Mg Tablet, 20 MG PO DAILY PRN for STOMACH UPSET, (Reported) Fluticasone Propionate 9.9 Ml Zapata.susp, 1 SPRAY NS BID, (Reported) Fluticasone/Salmeterol 1 Each Blst.w.dev, 1 PUFF IH BID, (Reported) LAST FILLED 03-08-18 Furosemide 20 Mg Tablet, 20 MG PO DAILY, (Reported) Gabapentin 600 Mg Tablet, 600 MG PO TID, (Reported) Guaifenesin 400 Mg Tablet, 400 MG PO TID PRN for CONGESTION, (Reported) Levocetirizine Dihydrochloride 5 Mg Tablet, 5 MG PO DAILY IN EVENING, (Reported) Metoprolol Tartrate 25 Mg Tablet, 25 MG PO BID, (Reported) LAST FILLED 11-11-17 90 DAYS Montelukast Sodium 10 Mg Tablet, 10 MG PO HS, (Reported) Ondansetron HCl 4 Mg Tab, 4 MG PO TID PRN for NAUSEA/VOMITING-1ST LINE, ( Reported) Pantoprazole Sodium 40 Mg Tablet.dr, 40 MG PO DAILY, (Reported) Potassium Chloride 10 Meq Capsule.er, 10 MEQ PO DAILY, (Reported) Simvastatin 40 Mg Tablet, 40 MG PO HS, (Reported) Tofacitinib Citrate 5 Mg Tablet, 5 MG PO BID, (Reported) Tramadol HCl 50 Mg Tablet, 50-100 MG PO EVERY 4-6 HOURS PRN for PAIN-MODERATE, ( Reported) Venlafaxine HCl 150 Mg Cap.er.24h, 300 MG PO DAILY Prescribed by: ROHIT AZEVEDO on 06/13/18 1605 Zolpidem Tartrate 5 Mg Tablet, 5 MG PO HS PRN for SLEEP, (Reported) Past Ztedyga-Tvwkmu-Oqascc Hx Past Med/Social Hx: Reviewed Nursing Past Med/Soc Hx Patient Social History Alcohol Use: Denies Use Number of Drinks Today: Alcohol Beverage of Choice: Wine Recreational Drug Use: No Smoking Status: Current Everyday Smoker Type Used: Cigarettes Recent Foreign Travel: No Contact w/Someone Who Travel: No Recent Infectious Disease Expo: No Recent Hopitalizations: No Immunizations Up To Date Tetanus Booster (TDap): Unknown Date of Pneumonia Vaccine: Aug 18, 2017 Date of Influenza Vaccine: Aug 18, 2017 Seasonal Allergies Seasonal Allergies: Yes Past Medical History Surgeries: Yes (port placement/REMOVED, bladder stimulator, Right ear surgery, HEART MONITO) Tubal Ligation Respiratory: Yes (cpap at night) Pneumonia, Sleep Apnea, Emphysema Currently Using CPAP: Yes Currently Using BIPAP: No Cardiac: Yes High Cholesterol, Hypertension Neurological: Yes (2 STROKES IN APRIL AND Aug) Stroke, TIA 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 Disorders: 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, 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 Sexually Transmitted Disease: No HIV/AIDS: No Genitourinary: Yes (bladder stimulator) Kidney Infection, Bladder Infection, Renal Failure Gastrointestinal: Yes (Esophageal spasm) Gastroesophageal Reflux, Irritable Bowel Musculoskeletal: Yes ("3 bulging disks", CHRONIC BILATERAL LEG PAIN) Arthritis, Rheumatoid Arthritis, Chronic Back Pain Endocrine: No HEENT: No Loss of Vision: Bilateral Hearing Impairment: Denies Cancer: No Psychosocial: Yes Anxiety, Depression Integumentary: No Blood Disorders: Yes (Anemia) Adverse Reaction/Blood Tranf: No (N/A) Family Medical History Reviewed Nursing Family Hx Dementia 19 MOTHER FH: prostate cancer son, Onset:25's - 30 No Pertinent Family Hx, Cancer, Psychiatric Problems Review of Systems Time Seen by Provider: 06:07 Sepsis Event Evaluation Height, Weight, BMI Height: 5'6.00" Weight: 237lbs. 3.0oz. 107.399000cj; 37.8 BMI Method:Stated Exam Exam Vital Signs Date Time Temp Pulse Resp B/P (MAP) Pulse Ox O2 Delivery O2 Flow Rate FiO2 06/14/18 05:00 79 22 100/56 (71) 99 Mechanical Ventilator 55.00 06/14/18 04:45 80 24 99/57 (71) 99 Mechanical Ventilator 55.00 06/14/18 04:30 82 26 107/65 (79) 99 Mechanical Ventilator 55.00 06/14/18 04:15 81 25 97 Mechanical Ventilator 55.00 06/14/18 04:00 85 27 104/57 (73) 97 Mechanical Ventilator 55.00 06/14/18 04:00 98 Mechanical Ventilator 55 18 03:47 78 23 100 65 18 03:45 89 16 112/60 (77) 96 Mechanical Ventilator 55.00 18 03:30 77 24 119/71 (87) 100 Mechanical Ventilator 65.00 18 03:15 78 24 119/68 (85) 100 Mechanical Ventilator 65.00 06/14/18 03:00 80 28 115/68 (84) 100 Mechanical Ventilator 65.00 18 02:45 89 31 105/61 (76) 100 Mechanical Ventilator 65.00 18 02:30 81 25 97/63 (74) 98 Mechanical Ventilator 65.00 06/14/18 02:15 80 24 133/79 (97) 98 Mechanical Ventilator 65.00 06/14/18 02:11 80 06/14/18 02:00 80 21 130/83 (99) 98 Mechanical Ventilator 65.00 06/14/18 01:45 80 24 130/82 (98) 98 Mechanical Ventilator 65.00 06/14/18 01:30 81 24 132/84 (100) 97 Mechanical Ventilator 65.00 06/14/18 01:15 82 25 132/87 (102) 97 Mechanical Ventilator 65.00 06/14/18 01:00 83 18 01:00 83 25 136/88 (104) 98 Mechanical Ventilator 65.00 06/14/18 00:56 83 26 99 75 18 00:45 86 26 133/85 (101) 98 Mechanical Ventilator 75.00 06/14/18 00:30 86 27 141/85 (103) 99 Mechanical Ventilator 75.00 18 00:15 88 27 138/85 (102) 99 Mechanical Ventilator 75.00 18 00:00 98 Mechanical Ventilator 75 18 00:00 99.2 90 30 137/82 (100) 99 Mechanical Ventilator 75.00 18 23:45 92 28 137/78 (97) 99 Mechanical Ventilator 75.00 18 23:34 100 318 23:30 95 31 130/69 (89) 99 Mechanical Ventilator 75.00 18 23:15 98 31 126/67 (86) 99 Mechanical Ventilator 75.00 18 23:00 99.5 108 34 113/55 (74) 98 Mechanical Ventilator 75.00 06/13/18 22:57 116 29 93 100 18 22:45 114 27 118/63 (81) 92 Mechanical Ventilator 100.00 18 22:40 116 36 124/87 (99) 90 Mechanical Ventilator 100.00 18 22:35 116 22 118/61 (80) 94 Mechanical Ventilator 100.00 06/13/18 22:35 116 29 93 100 18 22:30 126 25 142/79 (100) Mechanical Ventilator 100.00 18 22:28 129 47 145/90 (108) 89 Mechanical Ventilator 100.00 06/13/18 22:25 130 22 177/83 (114) 94 Mechanical Ventilator 100.00 06/13/18 22:23 130 37 179/99 (125) 96 Mechanical Ventilator 100.00 06/13/18 22:00 122 41 86 06/13/18 21:40 100 06/13/18 21:00 104 36 127/51 (76) 94 NIV Bilevel 55.00 06/13/18 20:00 112 36 117/52 (73) 98 NIV Bilevel 55.00 06/13/18 20:00 94 NIV Bilevel 55 06/13/18 19:00 144 06/13/18 19:00 144 30 138/72 (94) 93 NIV Bilevel 55.00 18 18:35 123 28 97 55.00 18 18:00 123 38 128/74 (92) 97 NIV Bilevel 55.00 06/13/18 17:27 114 36 97 40.00 18 17:00 114 36 126/70 (88) 94 NIV Bilevel 40.00 18 16:00 112 38 116/64 (81) 94 Nasal Cannula 4.00 06/13/18 16:00 94 Nasal Cannula 2.00 06/13/18 15:00 115 32 101/72 (82) 94 Nasal Cannula 4.00 06/13/18 14:16 92 Nasal Cannula 4.00 18 14:00 114 27 140/57 (84) 92 Nasal Cannula 4.00 06/13/18 13:49 Nasal Cannula 4.00 06/13/18 13:00 98 06/13/18 13:00 98 29 127/61 (83) 95 Nasal Cannula 2.00 06/13/18 12:00 94 Nasal Cannula 2.00 06/13/18 12:00 99.6 06/13/18 12:00 103 30 108/61 (77) 91 Nasal Cannula 2.00 06/13/18 11:00 100 22 116/51 (72) 93 Nasal Cannula 2.00 06/13/18 10:34 96 Nasal Cannula 2.00 06/13/18 10:00 87 26 109/58 (75) 92 Nasal Cannula 2.00 06/13/18 09:00 84 21 103/48 (66) 98 Nasal Cannula 2.00 06/13/18 08:15 99.3 06/13/18 08:00 103 26 107/43 (64) 99 Nasal Cannula 2.00 06/13/18 08:00 94 Nasal Cannula 2.00 06/13/18 07:06 101.3 06/13/18 07:00 105 06/13/18 07:00 104 31 99/58 (72) 95 Nasal Cannula 2.00 06/13/18 06:42 96 Nasal Cannula 2.00 06/13/18 06:22 101.5 06/13/18 06:00 100 29 103/60 (74) 94 Nasal Cannula 2.00 06/13/18 05:52 100.7 I & O 06/14/18 07:00 Intake Total 2100 ml Output Total 4250 ml Balance -2150 ml Height & Weight Height: 5'6.00" Weight: 237lbs. 3.0oz. 107.535055is; 37.8 BMI Method:Stated General Appearance: WD/WN, Mild Distress (unresponsive on vent) HEENT: Pharynx Normal (ET TUBE in PLace ) Neck: Non Tender, Supple Respiratory: Crackles, Decreased Breath Sounds, Expiration, Wheezing Cardiovascular: Regular Rate, Rhythm, No Murmur Capillary Refill: Less Than 3 Seconds Gastrointestinal: normal bowel sounds, non tender, soft, no organomegaly Extremity: Normal Capillary Refill, Normal Range of Motion, Non Tender Neurologic/Psychiatric: Alert, No Motor/Sensory Deficits, Disoriented Skin: Normal Color, Warm/Dry Lymphatic: No Adenopathy Results Lab Laboratory Tests 06/12/18 16:30 06/13/18 02:45 06/14/18 03:35 Assessment/Plan Assessment/Plan Acute respiratory failure secondary to pneumonia vs chf -Bilateral LE dopplers - echocardiogram -KVO IVF -Continue Lasix -Await viramontes cultures -Prednisone currently. -pt has allergy listed to solumedrol. Will try to find out what her reaction was. COPDAE -DuoNeb Q4 UTI with Sepsis -Continue Abx therapy -Currently on Rocephin and azithromycin -Will hold off on advancing antibiotics for now. If pt spikes another fever will increase Abx coverage. Combative with RN last night/Metabolic encephalopathy - multifactorial including sepsis and extensive sedating medications -D/C Flexeril, Ambien, Xanax, Neurontin, and Ativan -CT head without contrast on admission is negative HX of depression -- I question if pt is BiPolar -PT is on 300mg of Effexor XR - daily -will decrease to 150mg for now Acute renal failure -improved -present on admission -D/C tordol HX of CVA and TPA in the past -CT on admission was negative DVT/GI PPX -Continue protonix and lovenox QUINN VELÁZQUEZ DO Jun 14, 2018 05:21
[2018-06-14] MEDS: CATHETER FLUSH 10 ML SYR IV SCH ×3 (06:27→22:12)
[2018-06-14] MEDS: VENlafaxine XR 75 MG (EFFEXOR XR) CAP PO SCH (06:28)
[2018-06-14] MEDS: ONDANSETRON 4 MG (ZOFRAN) ORAL DISSOLVE TAB PO SCH ×3 (06:28→17:34)
[2018-06-14] MEDS ORDERED: predniSONE 20 MG TAB PO SCH (07:00)
[2018-06-14] MEDS ORDERED: VENlafaxine XR 75 MG (EFFEXOR XR) CAP PO SCH (07:00)
--- NOTE | 2018-06-14 07:20 | Diagnostic Imaging Report ---
INDICATION: Evaluate tube placement. Comparison made with prior examination 06/13/18. FINDINGS: The ET and NG tubes are in satisfactory position. There is diffuse bilateral airspace disease. Some underlying central pulmonary venous congestion cannot be excluded. Heart size is stable. There is no pleural effusion or pneumothorax. IMPRESSION: Increasing diffuse bilateral airspace disease. Some underlying central pulmonary venous congestion cannot be excluded. ET and NG tubes are in satisfactory position. Dictated by: Dictated on workstation # [id number]
[2018-06-14] MEDS ORDERED: CLOPIDOGREL 75 MG (PLAVIX) TABLET PO SCH (09:00)
[2018-06-14] MEDS ORDERED: PANTOPRAZOLE 40 MG (PROTONIX) TAB PO SCH (09:00)
[2018-06-14] MEDS: FLUTICASONE NASAL SPRAY (FLONASE) 16 GM BTL NS SCH (09:27)
[2018-06-14] MEDS: LORATADINE (CLARITIN) 10 MG TAB PO SCH (09:27)
[2018-06-14] MEDS: meTOprolol TARTRATE 25 MG (LOPRESSOR) TABLET PO SCH ×2 (09:28→22:01)
[2018-06-14] MEDS: PANTOPRAZOLE 40 MG (PROTONIX) VIAL IV SCH (09:28)
--- NOTE | 2018-06-14 09:50 | Diagnostic Imaging Report ---
PROCEDURE: US Venous Lower Ext Shane. TECHNIQUE: Multiple real-time grayscale images were obtained over the lower extremities in various projections, bilaterally. Additional duplex Doppler and color Doppler images were also obtained. INDICATION: Ventilatory dependency. EXAMINATIONS: Both grayscale and color Doppler imaging of the deep veins of the lower extremities were performed with waveform analysis. FINDINGS: There is no intraluminal filling defect. Normal continuous flow is seen throughout the deep venous systems of both legs, and there is normal response to augmentation. The deep veins compress normally. IMPRESSION: No ultrasound evidence of deep venous thrombosis in either lower extremity. Dictated by: Dictated on workstation # [id number]
[2018-06-14] MEDS: fentaNYL INJECTION 100 MCG/2 ML AMP IV PRN ×2 (10:07→15:13)
--- NOTE | 2018-06-14 10:16 | Physical Therapy Progress Note ---
Therapy Progress Note Patient is currently sedated and on mechanical ventilator and cannot actively participate with PT. PT will continue to monitor patient status. RN aware and concurs. FIDEL JARQUIN PT Jun 14, 2018 10:16
[2018-06-14] MEDS ORDERED: IOHEXOL 350 MG/ML 150 ML (OMNIPAQUE 350) VIAL IV ONE (10:45)
[2018-06-14] MEDS ORDERED: NS 250 ML (IVPB) BAG IV ONE (10:45)
[2018-06-14] MEDS: predniSONE 20 MG TAB NG SCH (10:52)
[2018-06-14] MEDS: DEXMEDETOMIDINE INJECTION 400 MCG in NS (IVPB) 96 ML IV SCH ×2 (10:52→17:34)
[2018-06-14] MEDS: diphenhydrAMINE 50 MG/ML INJ (BENADRYL) IVP SCH ×3 (11:09→20:57)
--- NOTE | 2018-06-14 11:47 | Diagnostic Imaging Report ---
INDICATION: PICC line placement COMPARISON: 06/13/2018 FINDINGS: An ET tube is in the lower thoracic trachea and OG catheter is in the stomach. A left PICC line has its tip oriented inferiorly at the mid to lower SVC. A 5 lobed airspace disease edema versus pneumonia unchanged from one day prior. IMPRESSION: Visualized support apparatus in good alignment, unchanged 5 lobed airspace disease. Dictated by: Dictated on workstation # [id number]
[2018-06-14] MEDS ORDERED: DICY20TA10 PO (14:12)
[2018-06-14] MEDS ORDERED: TRAM50TA2 PO (14:12)
[2018-06-14] MEDS ORDERED: RT-ALBUINH IH (14:12)
[2018-06-14] MEDS ORDERED: GUAI400T44 PO (14:12)
[2018-06-14] MEDS ORDERED: MONT10TA24 PO (14:12)
[2018-06-14] MEDS ORDERED: ARIP5TAB12 PO (14:12)
[2018-06-14] MEDS ORDERED: POTA10CA43 PO (14:12)
[2018-06-14] MEDS ORDERED: FURO20TA4 PO (14:12)
[2018-06-14] MEDS: NOREPINEPHRINE 4 MG in NS (IVPB) 250 ML IV SCH (15:08)
--- NOTE | 2018-06-14 16:30 | Anesthesia-Procedure Note ---
Procedures/Interventions Procedure Start/Stop/Diagnosis Date of Procedure: Jun 14, 2018 Start Time: 16:00 Referring Physician: Julienne Preprocedural Diagnosis: Respiratory Failure Brief History Called to start Arterial Line on patient once she returned from CT. Pt had a previous A-line attempt without success last night. Pt hx obtained. Pt sedated on propofol and precedex infusions. Right radial arterial line started under sterile technique x1 attempt after positioning arm on table. Catheter advanced easily with brisk blood return and strong wave form on monitor. Secured with op site and tape. Restraint re applied by RN. Stop Time: 16:15 Arterial Line Arterial Line Catheter: 22G Type: Radial Location: Right Procedure: prepped, draped in sterile fashion, good wave-form was obtained, patient tolerated procedure well, no immediate complications, post procedure area cleaned, post procedure dressing applied OSVALDO VILLAGRAN CRNA Jun 14, 2018 16:30
--- NOTE | 2018-06-14 17:08 | Diagnostic Imaging Report ---
PROCEDURE: CT angiography of the chest with and without contrast. TECHNIQUE: A noncontrast CT of the chest was performed. Subsequently, after intravenous administration of contrast, thin section axial CT angiography of the chest was performed. MIP reconstructions were made. INDICATION: Elevated d-dimer with shortness of air and pneumonia. COMPARISON: No prior CT chest studies are available for comparison. FINDINGS: The patient is intubated. The tip of the ET tube appears to be at the level of the phu or perhaps slightly extending into the right mainstem bronchus. This should be pulled back. There is an NG tube passing into the stomach. The pulmonary arteries are prominent. No definite evidence of thromboemboli is seen. No filling defects are detected. The segmental branches are limited in evaluation due to respiratory motion artifact. The thoracic aorta is of normal caliber. No dissection is seen. No pericardial fluid is identified. There is trace pleural fluid on the right. No axillary lymphadenopathy is seen. There are some prominent lymph nodes in the mediastinum and prevascular space as well as paratracheal location. The largest node is paratracheal with a short axis measurement of 9 mm. There appear to be prominent lymph nodes in the yue bilaterally as well as subcarinal regions. Parenchymal evaluation does show extensive interstitial and airspace pulmonary infiltrates throughout all 5 lobes. A discrete parenchymal mass is not seen. The upper abdomen is unremarkable. IMPRESSION: 1. The endotracheal tube appears to be in a low position, as described above. This should be repositioned and pulled back. 2. Prominent pulmonary arteries raising the question of pulmonary arterial hypertension. No central emboli are detected. The segmental branches are limited in evaluation from the patient's respiratory motion. 3. Extensive bilateral pulmonary infiltrates. In addition, there are prominent lymph nodes in the mediastinum and yue bilaterally which may be on a reactive basis. Followup could be obtained. Report given to patient's nurse (Natty) at 5:08 p.m. 06/14/2018/cb Dictated by: Dictated on workstation # [id number]
[2018-06-14] MEDS: cefTRIAXone 1 GM/NS 50 ML IVPB IV SCH ×2 (17:48)
[2018-06-14] MEDS: ENOXAPARIN 40 MG/0.4 ML (LOVENOX) SYR SC SCH (17:48)
--- NOTE | 2018-06-14 18:38 | Progress Note (SOAP) ---
Subjective Subjective/Events-last exam Patient with acute decompensation overnight, intubated and now on ventilator. FiO2 55%. Sedated. Review of Systems Date Seen by Provider: Jun 14, 2018 Time Seen by Provider: 11:30 intubated and sedated Focused Exam Lactate Level 06/12/18 16:30: Lactic Acid Level 0.85 06/13/18 06:57: Lactic Acid Level 1.89 Objective Exam Last Set of Vital Signs Vital Signs Date Time Temp Pulse Resp B/P (MAP) Pulse Ox O2 Delivery O2 Flow Rate FiO2 06/14/18 16:00 92 25 132/75 (94) 96 Mechanical Ventilator 55.00 06/14/18 15:56 45 06/14/18 11:40 98.4 Capillary Refill : Greater Than 3 SecondsLess Than 3 Seconds I&O Intake and Output 06/14/18 00:00 Intake Total 2750 ml Output Total 4200 ml Balance -1450 ml Intake Oral 600 ml IV Total 2150 ml Output Urine Total 4200 ml General: Mild Distress, Other (intubated, sedated) HEENT: Atraumatic, Mucous Memb Moist/[place] Neck: Supple Lungs: Other (diminished, coarse throughout) Heart: Normal S1, Normal S2 Abdomen: Normal Bowel Sounds, Soft, No Masses Extremities: No Cyanosis, No Tenderness/Swelling Skin: No Rashes, No Significant Lesion Neuro: Other (intubated, sedated) Psych/Mental Status: Other (intubated, sedated) Results/Procedures Lab Laboratory Tests 06/13/18 18:38: Blood Gas Puncture Site R RAD, Blood Gas Patient Temperature 100.3, Arterial Blood pH 7.34*L, Arterial Blood Partial Pressure CO2 42, Arterial Blood Partial Pressure O2 113H, Arterial Blood HCO3 22L, Arterial Blood Total CO2 23.0, Arterial Blood Oxygen Saturation 98, Arterial Blood Base Excess -3.0L, Tanner Test YES-POS, Blood Gas Ventilator Setting NO, Blood Gas Inspired Oxygen 55% FIO2 BIPAP 10/06/13/18 22:58: Blood Gas Puncture Site L BRACH, Blood Gas Patient Temperature 99.5, Arterial Blood pH 7.18*L, Arterial Blood Partial Pressure CO2 63H, Arterial Blood Partial Pressure O2 111H, Arterial Blood HCO3 22L, Arterial Blood Total CO2 24.1 , Arterial Blood Oxygen Saturation 98, Arterial Blood Base Excess -4.9L, Tanner Test YES-POS, Blood Gas Ventilator Setting YES, Blood Gas Inspired Oxygen 100% 06/14/18 00:55: Blood Gas Puncture Site R RAD, Blood Gas Patient Temperature 99.2, Arterial Blood pH 7.39, Arterial Blood Partial Pressure CO2 38, Arterial Blood Partial Pressure O2 135H, Arterial Blood HCO3 22L, Arterial Blood Total CO2 23.5, Arterial Blood Oxygen Saturation 100, Arterial Blood Base Excess -1.8, Tanner Test YES-POS, Blood Gas Ventilator Setting YES, Blood Gas Inspired Oxygen 75% 06/14/18 03:35: White Blood Count 6.3, Red Blood Count 3.62L, Hemoglobin 10.9L, Hematocrit 32L, Mean Corpuscular Volume 88, Mean Corpuscular Hemoglobin 30, Mean Corpuscular Hemoglobin Concent 34, Red Cell Distribution Width 15.6H, Platelet Count 258, Mean Platelet Volume 9.9, Neutrophils (%) (Auto) 83H, Lymphocytes (%) (Auto) 10L , Monocytes (%) (Auto) 7, Eosinophils (%) (Auto) 0, Basophils (%) (Auto) 0, Neutrophils # (Auto) 5.2, Lymphocytes # (Auto) 0.6L, Monocytes # (Auto) 0.4, Eosinophils # (Auto) 0.0, Basophils # (Auto) 0.0, Sodium Level 138, Potassium Level 4.5, Chloride Level 109H, Carbon Dioxide Level 21, Anion Gap 8, Blood Urea Nitrogen 12, Creatinine 0.90, Estimat Glomerular Filtration Rate > 60, BUN/ Creatinine Ratio 13, Glucose Level 145H, Calcium Level 8.2L, Corrected Calcium 8.9, Phosphorus Level 1.7L, Magnesium Level 2.1, Total Bilirubin 0.5, Aspartate Amino Transf (AST/SGOT) 38H, Alanine Aminotransferase (ALT/SGPT) 22, Alkaline Phosphatase 81, C-Reactive Protein High Sensitivity 25.63H, B-Type Natriuretic Peptide 934.3H, Total Protein 6.3L, Albumin 3.1L 06/14/18 07:28: D-Dimer 2.95H, Troponin I < 0.30 06/14/18 11:27: Glucometer 125H 06/14/18 12:26: Troponin I < 0.30 Microbiology 06/12/18 Blood Culture - Preliminary, Resulted No growth 06/13/18 Mycobacterial Culture - Preliminary, Resulted 06/12/18 Urine Culture - Final, Complete Enterococcus faecalis Radiology Date of Exam: 06/12/18 CT HEAD WO-R/O STROKE EXAM: CT HEAD WO-R/O STROKE INDICATION: Leg weakness. Altered mental status. Slurred speech. COMPARISON: CT head without contrast from 08/24/2017. FINDINGS: No intracranial hemorrhage, mass effect, hydrocephalus, or extra-axial fluid collections. No CT evidence of acute infarction. Osseous structures are intact. The visualized paranasal sinuses and mastoids are unremarkable. IMPRESSION: No acute intracranial CT findings. Date of Exam: 06/12/18 CHEST 1 VIEW, AP/PA ONLY INDICATION: Wheezing. EXAMINATION: Portable erect AP chest at 4:42 p.m. FINDINGS: The heart is enlarged and has increased in size since the prior exam of 04/17/2018. Furthermore, in the interval since the prior study, alveolar/interstitial pulmonary infiltrates have developed in the right suprahilar region, the left upper lung and the left midlung. These findings could be secondary to pulmonary edema, pneumonia/atelectasis or a combination of all three. The periphery of the right lung is generally clear and there is no significant pleural effusion in either lung base. The mediastinum is not widened. The osseous structures are intact. There is a loop recorder device again noted overlying the left thorax. IMPRESSION: The appearance of the chest has worsened since the prior study as the heart has increased in size and alveolar/interstitial pulmonary infiltrates have developed, bilaterally, particularly on the left. These abnormal parenchymal densities may be related to pulmonary edema, pneumonia, atelectasis or a combination of all three. A followup exam would be recommended for continued evaluation. Date of Exam: 06/13/18 CHEST 1 VIEW, AP/PA ONLY INDICATION: Followup of infiltrates with shortness of breath. FINDINGS: Bilateral dense infiltrates noted in the upper lobes bilaterally. Moderate perihilar infiltrate noted in the left lower lobe as well. Right lower lung appears clear. The heart is mildly enlarged and has increased in size since 04/17/2018. No evidence of pleural effusion. No pneumothorax. IMPRESSION: 1. Increasing cardiac size. 2. Bilateral infiltrates present increasing in density since previous exam. These could represent inflammatory infiltrates or increasing pulmonary edema. Assessment/Plan Assessment/Plan (1) Severe sepsis Status: Acute Assessment & Plan: 06/13 -secondary to multi-lobar PNA -Day 2 Rocephin, Azithromycin -hypotension, improved after fluid bolus; febrile to 101.5, tachycardia and tachypnea -hydrocortizone 100 mg IV in ED, will start on prednisone (pt with solumedrol allergy) -CRP >15 06/14 -CXR again shows multi-lobar PNA -Day 3 Rocephin, Azithromycin -sputum culture + yeast, + e coli -urine cx + enterococcus -sensitivities indicate both sensitive to Levaquin, will change to 750 Levaquin daily, add Diflucan for yeast -critical care management per Dr. Bautista (2) Multilobar lung infiltrate Status: Acute Assessment & Plan: 06/13 -bilateral upper lobe infiltrates and left lower lobe infiltrate -day 2 rocephin and azithromycin -start prednisone 40 mg PO daily -start bipap to see if that improves pt's respiratory status -repeat CXR in AM; can get CT if needed, pt reports she just requires benadryl with contrast and can tolerate ok - will hold off for now due to DEBRA -consult to Dr. Bautista 06/14 -WBC 5.8 --> 6.3 -CRP 25.63 -sputum cx + yeast, e coli -Day 2 azithromycin and rocephin -stop rocephin, start levaquin based on sputum sensitivities (3) Acute respiratory failure with hypoxia Status: Acute (4) Hyponatremia Status: Resolved Assessment & Plan: 06/13 -pt with previous history of hospitalization due to altered mental status and hyponatremia -Na 124 --> 132 -recheck in AM 06/14 -Na 124 --> 132 --> 138 (5) Acute renal injury due to sepsis Status: Resolved Assessment & Plan: 06/13 -baseline Cr 0.87 (checked in office on 05/25/18) -Cr 1.94 --> 1.31 -BUN 28 --> 21 -GFR 26 --> 41 -monitor renal function 06/14 -Cr 1.94 --> 1.31 --> 0.9 -BUN 28 --> 21 -GFR 26 --> 41 (6) Rheumatoid arthritis Status: Chronic Assessment & Plan: 06/13 -pt on Xeljanz 5 mg BID - hold for now Qualifiers: Qualified Codes: M06.9 - Rheumatoid arthritis, unspecified (7) Elevated LFTs Status: Acute Assessment & Plan: 06/13 -pt's history notes a history of fatty liver disease -AST 45 on admission -recheck in AM 06/14 -AST remains elevated, now 38 (8) Hemoptysis Status: Acute Assessment & Plan: 06/13 -called by nursing staff last night that patient was coughing up thick bloody sputum -pt with RA and on Xeljanz -will check Quanterferon Gold for TB and send sputum for culture -place in isolation in negative pressure room until TB ruled out, although chances are low -pt states she had TB test before starting Xeljanz that was negative 06/14 -results of TB testing pending, pt to remain in isolation until result obtained (9) Anemia Assessment & Plan: 06/13 -Hgb 11.1 --> 10.1 -recheck in AM 06/14 -Hgb 11.1 --> 10.1 --> 10.3 Qualifiers: Qualified Codes: D64.9 - Anemia, unspecified (10) Cardiomegaly Status: Acute Assessment & Plan: 06/13 -CXR from yesterday and this AM both note significant enlargement from previous CXR on 04/17/18 -will check echo in AM 06/14 -CXR shows stable cardiomegaly -echo pending (11) Sleep apnea Status: Chronic Assessment & Plan: -pt has CPAP at home but reported to nursing staff that she does not wear it -requiring BiPap now for acute respiratory failure -encourage compliance with CPAP use after discharge Qualifiers: Qualified Codes: G47.33 - Obstructive sleep apnea (adult) (pediatric) (12) Obesity (BMI 30-39.9) Status: Chronic (13) Coronary artery disease Status: Chronic Assessment & Plan: Moderate, non-obstructive CAD per history Qualifiers: Qualified Codes: I25.10 - Atherosclerotic heart disease of [place] coronary artery without angina pectoris (14) Anxiety Status: Chronic Assessment & Plan: 06/13 -clinic notes show that patient is being tapered off her Xanax -pt appears extremely anxious at the time of exam -IV ativan now while placing patient on Bipap 06/14 -intubated, now on precedex and propofol (15) Bacteria in urine Status: Acute Assessment & Plan: 06/13 -large bacteria on UA -urine cx pending -pt on rocephin for PNA which should provide adequate coverage until cx results available 06/14 -enterococcus per cx -change rocephin to levaquin based on sensitivities (16) Tobacco abuse Status: Chronic Assessment & Plan: 06/13 -cessation encouraged (17) Chronic pain Status: Chronic Qualifiers: Qualified Codes: G89.29 - Other chronic pain (18) Weakness Status: Acute Assessment & Plan: 06/13 -pt reports that she has gotten weaker over the last few days and had a few falls -PT to eval and treat 06/14 -pt now intubated, will have PT see after extubated (19) Elevated d-dimer Status: Acute Assessment & Plan: 06/14 -2.11 on admission --> 2.95 -CTA pending -doppler of LE shows no evidence of DVT (20) History of stroke Status: Chronic Assessment & Plan: 2016, pt has some residual hemiplegia continue home meds (21) DVT prophylaxis Status: Acute Assessment & Plan: 40 mg Lovenox SQ daily Clinical Quality Measures DVT/VTE Risk/Contraindication: Risk Factor Score Per Nursin RFS Level Per Nursing on Admit: 4+=Very High Pneumonia: Pseudomonal Risk: COPD Copy Copies To 1: [facility]/ROHIT MORRISON DO Jun 14, 2018 18:38
[2018-06-14] MEDS: FLUCONAZOLE 200 MG/100 ML 50 ML, EMPTY IV BAG (PVC) 1 EA IV SCH ×2 (19:49)
[2018-06-14] MEDS: LEVOFLOXACIN 750 MG/150 ML IV 150 ML IV SCH (19:50)
[2018-06-14] MEDS: AZITHROMYCIN 500 MG/NS 250 ML IVPB IV SCH ×2 (20:56)
[2018-06-14] MEDS: LACTATED RINGERS 1,000 ML IV SCH (20:59)
[2018-06-14] MEDS: SIMvastatin 40 MG (ZOCOR) TAB PO SCH (22:01)
[2018-06-15] VITALS (35 sets, daily range): BP systolic 107–162; BP diastolic 51–89
[2018-06-15] MEDS: NOREPINEPHRINE 4 MG in NS (IVPB) 250 ML IV SCH ×2 (01:57→15:31)
[2018-06-15] MEDS: RT-ALBUTEROL/IPRATROPIUM 3 ML (DUONEB) VIAL INH SCH ×6 (01:58→22:15)
[2018-06-15] MEDS ORDERED: NS (IVPB) 50 ML ONE (03:03)
[2018-06-15] MEDS: DEXMEDETOMIDINE INJECTION 400 MCG in NS (IVPB) 96 ML IV SCH ×3 (03:21→18:45)
[2018-06-15 03:30] LABS: ABG BASE EXCESS -1.3 MMOL/L (-2.5-2.5); ABG OXYGEN SATURATION 100 % (94-100); ABG PCO2 46 MMHG (35-45); ABG PO2 158 MMHG (79-93); ABG TCO2 25.5 MMOL/L (21.0-31.0)
[2018-06-15 03:32] LABS: ABG PH 7.33 (7.37-7.43); INSPIRED O2 50%; PATIENT TEMP 97.4; VENTILATOR YES
[2018-06-15 03:34] LABS: BASOPHILS % (AUTO) 0 % (0-10); EOSINOPHILS % (AUTO) 0 % (0-10); HEMATOCRIT 30 % (35-52); HEMOGLOBIN 10.4 G/DL (11.5-16.0); LYMPHOCYTES # (AUTO) 1.1 X 10^3 (1.0-4.0); LYMPHOCYTES % (AUTO) 13 % (12-44); MEAN CORPUSCULAR HEMOGLOBIN 31 PG (25-34); MEAN CORPUSCULAR HGB CONC 34 G/DL (32-36); MEAN CORPUSCULAR VOLUME 89 FL (80-99); MEAN PLATELET VOLUME 9.6 FL (7.4-10.4); MONOCYTES # (AUTO) 0.6 X 10^3 (0.0-1.0); MONOCYTES % (AUTO) 7 % (0-12); NEUTROPHILS # (AUTO) 6.9 X 10^3 (1.8-7.8); NEUTROPHILS % (AUTO) 80 % (42-75); PLATELET COUNT 296 10^3/uL (130-400); RED BLOOD COUNT 3.39 10^6/uL (4.35-5.85); RED CELL DISTRIBUTION WIDTH 15.7 % (10.0-14.5); WHITE BLOOD COUNT 8.7 10^3/uL (4.3-11.0)
[2018-06-15] MEDS: diphenhydrAMINE 50 MG/ML INJ (BENADRYL) IVP SCH (03:36)
[2018-06-15 03:51] LABS: BUN/CREATININE RATIO 13; CALCIUM 8.4 MG/DL (8.5-10.1); CARBON DIOXIDE 20 MMOL/L (21-32); CHLORIDE 107 MMOL/L (98-107); CREATININE SERUM 0.82 MG/DL (0.60-1.30); GFR ESTIMATED > 60; GLUCOSE 115 MG/DL (70-105); MAGNESIUM 2.2 MG/DL (1.8-2.4); POTASSIUM 4.6 MMOL/L (3.6-5.0); SODIUM 137 MMOL/L (135-145)
[2018-06-15] MEDS: MAGNESIUM 1 GM/100 ML IVPB 100 ML IV SCH (04:04)
[2018-06-15] MEDS: POTASSIUM CL 10MEQ/50ML IVPB 50 ML IV SCH (04:04)
[2018-06-15] MEDS: KCL 20 MEQ TAB (K-DUR) PO SCH (04:05)
[2018-06-15] MEDS: ONDANSETRON 4 MG (ZOFRAN) ORAL DISSOLVE TAB PO SCH (05:05)
[2018-06-15] MEDS: CATHETER FLUSH 10 ML SYR IV SCH ×3 (05:05→22:05)
[2018-06-15] MEDS: predniSONE 20 MG TAB NG SCH (05:16)
[2018-06-15] MEDS: VENlafaxine XR 75 MG (EFFEXOR XR) CAP PO SCH (05:16)
[2018-06-15] MEDS ORDERED: SODIUM PHOSPHATE INJ 30 MM in NS (IVPB) 250 ML IV NR (07:00)
--- NOTE | 2018-06-15 07:13 | Diagnostic Imaging Report ---
Indication: Ventilator patient. Comparison with 06/14/2018. Findings: ET tube is in good position. NG tube in the stomach. Both lungs show a very dense consolidated infiltrate with air bronchograms. Moderate aeration noted of the lungs bilaterally. Impression: 1. Finding consistent with RDS with very dense opacification of both lungs. 2. Tubes and lines in good position. Dictated by: Dictated on workstation # [id number]
--- NOTE | 2018-06-15 07:34 | Pulmonary Progress Note ---
Subjective Time Seen by Provider: 08:01 Subjective/Events-last exam PT is sedated on ventilator. Sepsis Event Evaluation Height, Weight, BMI Height: 5'6.00" Weight: 234lbs. 3.0oz. 106.737590og; 37.8 BMI Method:Stated Focused Exam Lactate Level 06/12/18 16:30: Lactic Acid Level 0.85 06/13/18 06:57: Lactic Acid Level 1.89 Exam Exam Vital Signs Date Time Temp Pulse Resp B/P (MAP) Pulse Ox O2 Delivery O2 Flow Rate FiO2 06/15/18 06:45 Mechanical Ventilator 100.00 06/15/18 06:30 Mechanical Ventilator 100.00 06/15/18 06:15 Mechanical Ventilator 100.00 06/15/18 06:05 Mechanical Ventilator 100.00 06/15/18 06:00 71 21 128/66 (86) 94 Mechanical Ventilator 45.00 06/15/18 05:00 70 24 138/68 (91) 100 Mechanical Ventilator 45.00 06/15/18 04:00 74 24 135/67 (89) 100 Mechanical Ventilator 45.00 06/15/18 03:58 75 24 133/66 (88) 100 Mechanical Ventilator 45.00 06/15/18 03:56 74 24 100 45 06/15/18 03:35 100 Mechanical Ventilator 50 06/15/18 03:35 97.2 06/15/18 03:00 86 36 133/72 (92) 93 Mechanical Ventilator 50.00 06/15/18 02:00 72 25 137/69 (91) 93 Mechanical Ventilator 50.00 06/15/18 01:58 72 25 94 50 06/15/18 01:56 Mechanical Ventilator 50.00 06/15/18 01:00 74 06/15/18 01:00 74 23 135/70 (91) 91 Mechanical Ventilator 50.00 06/15/18 00:11 78 26 94 50 06/15/18 00:00 86 20 152/76 (101) 100 Mechanical Ventilator 50.00 06/14/18 23:47 96.9 06/14/18 23:45 98 Mechanical Ventilator 50 06/14/18 23:03 130/68 Mechanical Ventilator 50.00 06/14/18 23:00 82 23 131/69 (89) 98 Mechanical Ventilator 50.00 06/14/18 22:03 77 25 97 50 06/14/18 22:00 85 28 132/68 (89) 97 Mechanical Ventilator 50.00 06/14/18 21:00 80 19 137/61 (86) 96 Mechanical Ventilator 55.00 06/14/18 20:00 Mechanical Ventilator 50 18 20:00 97.3 81 21 134/60 (84) 97 Mechanical Ventilator 55.00 06/14/18 20:00 85 135/61 06/14/18 19:23 81 24 98 50 18 19:00 87 25 115/52 (73) 98 Mechanical Ventilator 55.00 06/14/18 19:00 87 06/14/18 18:16 93 23 98 55 18 18:00 85 22 140/58 (85) 97 Mechanical Ventilator 55.00 06/14/18 17:45 85 26 134/56 (82) 97 Mechanical Ventilator 55.00 06/14/18 17:33 136/57 06/14/18 17:30 96 35 123/53 (76) 90 Mechanical Ventilator 55.00 06/14/18 17:15 88 22 137/55 (82) 95 Mechanical Ventilator 55.00 06/14/18 17:00 87 23 139/55 (83) 95 Mechanical Ventilator 55.00 06/14/18 16:20 Mechanical Ventilator 50 06/14/18 16:00 92 25 132/75 (94) 96 Mechanical Ventilator 55.00 06/14/18 15:56 93 22 96 45 06/14/18 15:00 93 27 113/61 (78) 96 Mechanical Ventilator 55.00 06/14/18 14:47 144/68 06/14/18 14:16 93 23 98 45 06/14/18 14:00 95 25 115/63 (80) 99 Mechanical Ventilator 55.00 06/14/18 13:30 99 28 115/64 (81) 99 Mechanical Ventilator 55.00 06/14/18 13:00 98 18 12:30 101 29 133/69 (90) 98 Mechanical Ventilator 50.00 06/14/18 12:15 109 32 122/49 (73) 99 Mechanical Ventilator 50.00 06/14/18 12:00 98 20 171/112 (131) 99 Mechanical Ventilator 50.00 06/14/18 11:40 Mechanical Ventilator 50 18 11:40 98.4 Mechanical Ventilator 50.00 06/14/18 11:00 90 28 108/55 (72) 99 Mechanical Ventilator 55.00 06/14/18 10:57 90 30 95 45 06/14/18 10:00 80 46 98/58 (71) 97 Mechanical Ventilator 55.00 06/14/18 09:28 98/58 06/14/18 09:00 77 25 94/56 (69) 95 Mechanical Ventilator 55.00 06/14/18 08:21 76 23 95 45 06/14/18 08:15 76 23 97/58 (71) 96 Mechanical Ventilator 55.00 06/14/18 08:00 79 24 92/59 (70) 96 Mechanical Ventilator 55.00 06/14/18 07:55 Mechanical Ventilator 55 06/14/18 07:55 98.1 Mechanical Ventilator 55.00 I & O 06/15/18 07:00 Intake Total 1370 ml Output Total 1245 ml Balance 125 ml Height & Weight Height: 5'6.00" Weight: 234lbs. 3.0oz. 106.630254ns; 37.8 BMI Method:Stated General Appearance: WD/WN, Mild Distress (unresponsive on vent) HEENT: Pharynx Normal (ET TUBE in PLace ) Neck: Non Tender, Supple Respiratory: Crackles, Decreased Breath Sounds, Expiration, Wheezing Cardiovascular: Regular Rate, Rhythm, No Murmur Capillary Refill: Less Than 3 Seconds Peripheral Pulses: 2+ Radial Pulses (R), 2+ Radial Pulses (L) Gastrointestinal: normal bowel sounds, non tender, soft, no organomegaly Extremity: Normal Capillary Refill, Normal Range of Motion, Non Tender Neurologic/Psychiatric: No Motor/Sensory Deficits, Disoriented Skin: Normal Color, Warm/Dry Lymphatic: No Adenopathy Results Lab Laboratory Tests 06/14/18 03:35 06/15/18 03:15 Assessment/Plan Assessment/Plan Acute respiratory failure secondary to pneumonia r/o alveolar hemorrhage s/p bronchoscopy -Bilateral LE dopplers - echocardiogram -Sputum cultures reviewed will change diflucan to Eraxis -KVO IVF -Continue Lasix -Await viramontes cultures -Hold Lovenox and plavix -Check ANCA, MAX, antiglomerular basement Ab. -recheck PT, INR, PTT -Prednisone currently. -pt has allergy listed to solumedrol. Will try to find out what her reaction was. COPDAE -DuoNeb Q4 UTI with Sepsis -Continue Abx therapy -Currently on Rocephin and azithromycin -Will hold off on advancing antibiotics for now. If pt spikes another fever will increase Abx coverage. Combative with RN last night/Metabolic encephalopathy - multifactorial including sepsis and extensive sedating medications -D/C Flexeril, Ambien, Xanax, Neurontin, and Ativan -CT head without contrast on admission is negative HX of depression -- I question if pt is BiPolar -PT is on 300mg of Effexor XR - daily -will decrease to 150mg for now Acute renal failure -improved -present on admission -D/C tordol HX of CVA and TPA in the past -CT on admission was negative DVT/GI PPX -Continue protonix and lovenox Prognosis is guarded at this time. I discussed with Dr. Robins who will be talking with family today. 60min not including bronchoscopy time spent with patient, and medical team discussing current condition and plan of care. QUINN VELÁZQUEZ DO Jun 15, 2018 07:34
[2018-06-15] MEDS: RT-ALBUTEROL/IPRATROPIUM 3 ML (DUONEB) VIAL INH PRN (07:50)
--- NOTE | 2018-06-15 08:01 | Pulmonary Procedures ---
Pulmonary Procedures Date of Procedure Date of Service: Jun 15, 2018 Bronch Bronchoscopy with bronchoalveolar lavage (BAL) RLL, SHERITA , transbronchial washes RLL, and SHERITA Preop DX ILD Postop DX: washings and BAL contained multiple blood clots and red to pink color. - question diffuse pulmonary hemorrhage Complications: none After informed consent obtained and formal time out pt was sedated using diprivan. She is already on ventilator in ICU. Bronchoscope was advanced through the ET tube. 1% lidocaine was used to anesthetize phu, and left/ right main stem bronchus. An anatomical tour was undertaken down to the segmental bronchi bilaterally. No endobronchial lesions noted. bronchoalveolar lavage (BAL) RLL, SHERITA , transbronchial washes RLL, and SHERITA were obtained. Washing did clear up slightly with aggressive saline flushing. Pt tolerated procedure well. No complications noted. Stat CXR is pending. QUINN VELÁZQUEZ DO Jun 15, 2018 08:00
[2018-06-15] MEDS: FLUTICASONE NASAL SPRAY (FLONASE) 16 GM BTL NS SCH (08:10)
[2018-06-15] MEDS: PANTOPRAZOLE 40 MG (PROTONIX) VIAL IV SCH (08:10)
[2018-06-15] MEDS: FLUCONAZOLE 200 MG/100 ML 50 ML, EMPTY IV BAG (PVC) 1 EA IV SCH ×2 (08:10)
[2018-06-15] MEDS: LORATADINE (CLARITIN) 10 MG TAB PO SCH (08:10)
[2018-06-15] MEDS: meTOprolol TARTRATE 25 MG (LOPRESSOR) TABLET PO SCH ×2 (08:10→21:03)
[2018-06-15] MEDS ORDERED: diphenhydrAMINE 50 MG/ML INJ (BENADRYL) IVP PRN (08:15)
[2018-06-15] MEDS ORDERED: ANIDULAFUNGIN INJECTION 200 MG in NS (IVPB) 250 ML IV NR (08:15)
[2018-06-15] MEDS ORDERED: LIDOCAINE PF 1% 2 ML VIAL (OR ONLY) IJ ONE (08:23)
[2018-06-15] MEDS: LEVOFLOXACIN 750 MG/150 ML IV 150 ML IV SCH (08:23)
[2018-06-15 09:19] LABS: INR 1.2 (0.8-1.4); PROTHROMBIN TIME PATIENT 15.7 SEC (12.2-14.7)
--- NOTE | 2018-06-15 10:26 | Physical Therapy Progress Note ---
Therapy Progress Note Pt remains on the ventilator and is sedated. Underwent a bronch this date. Nurse reports they plan to try to begin weaning off the vent 06/16/2018. Will recheck tomorrow. No treatment rendered. Visit only. JEWEL LOREDO PT Jun 15, 2018 10:26
[2018-06-15] MEDS: fentaNYL INJECTION 100 MCG/2 ML AMP IV PRN ×2 (12:03→15:11)
--- NOTE | 2018-06-15 12:25 | Progress Note (SOAP) ---
Subjective Subjective/Events-last exam Patient with bronchoscopy by Dr. Bautista this morning and significant old blood noted without active bleeding. Preliminary TB testing came back negative. Pt continues to require ventilatory support, sedated with precedex and propofol. Review of Systems Date Seen by Provider: Jun 15, 2018 Time Seen by Provider: 11:40 intubated and sedated Focused Exam Lactate Level 06/12/18 16:30: Lactic Acid Level 0.85 06/13/18 06:57: Lactic Acid Level 1.89 Objective Exam Last Set of Vital Signs Vital Signs Date Time Temp Pulse Resp B/P (MAP) Pulse Ox O2 Delivery O2 Flow Rate FiO2 06/15/18 12:00 84 29 134/51 (78) 82 Mechanical Ventilator 40.00 06/15/18 10:25 50 06/15/18 10:00 99.3 Capillary Refill : Greater Than 3 SecondsLess Than 3 Seconds I&O Intake and Output 06/15/18 00:00 Intake Total 1530 ml Output Total 2520 ml Balance -990 ml IV Total 1500 ml Other 30 ml Output Urine Total 2470 ml Gastric Drainage Total 50 ml General: Other (intubated and sedated) HEENT: Atraumatic, Mucous Memb Moist/[place] Neck: Supple Lungs: Other (diminished with coarseness and wheezing diffusely) Heart: Regular Rate, Normal S1, Normal S2, Other (NSR per telemetry) Abdomen: Normal Bowel Sounds, Soft, No Masses Extremities: No Cyanosis, Normal Pulses, Other (edema in extremities x4) Skin: No Rashes, No Significant Lesion Neuro: Other (sedated ) Psych/Mental Status: Other (sedated) Results/Procedures Lab Laboratory Tests 06/14/18 12:26: Troponin I < 0.30 06/14/18 18:27: Troponin I < 0.30 06/14/18 18:31: Glucometer 159H 06/14/18 23:57: Glucometer 143H 06/15/18 03:15: White Blood Count 8.7, Red Blood Count 3.39L, Hemoglobin 10.4L, Hematocrit 30L, Mean Corpuscular Volume 89, Mean Corpuscular Hemoglobin 31, Mean Corpuscular Hemoglobin Concent 34, Red Cell Distribution Width 15.7H, Platelet Count 296, Mean Platelet Volume 9.6, Neutrophils (%) (Auto) 80H, Lymphocytes (%) (Auto) 13 , Monocytes (%) (Auto) 7, Eosinophils (%) (Auto) 0, Basophils (%) (Auto) 0, Neutrophils # (Auto) 6.9, Lymphocytes # (Auto) 1.1, Monocytes # (Auto) 0.6, Eosinophils # (Auto) 0.0, Basophils # (Auto) 0.0, Blood Gas Puncture Site RIGHT RADIAL, Blood Gas Patient Temperature 97.4, Arterial Blood pH 7.33*L, Arterial Blood Partial Pressure CO2 46H, Arterial Blood Partial Pressure O2 158H, Arterial Blood HCO3 24, Arterial Blood Total CO2 25.5, Arterial Blood Oxygen Saturation 100, Arterial Blood Base Excess -1.3, Tanner Test , Blood Gas Ventilator Setting YES, Blood Gas Inspired Oxygen 50%, Sodium Level 137, Potassium Level 4.6, Chloride Level 107, Carbon Dioxide Level 20L, Anion Gap 10 , Blood Urea Nitrogen 11, Creatinine 0.82, Estimat Glomerular Filtration Rate > 60, BUN/Creatinine Ratio 13, Glucose Level 115H, Calcium Level 8.4L, Phosphorus Level 2.0L, Magnesium Level 2.2 06/15/18 05:09: Glucometer 124H 06/15/18 08:35: Prothrombin Time 15.7H, INR Comment 1.2, Activated Partial Thromboplast Time 33 Microbiology 06/12/18 Blood Culture - Preliminary, Resulted No growth 06/13/18 Mycobacterial Culture - Preliminary, Resulted 06/12/18 Urine Culture - Final, Complete Enterococcus faecalis Radiology Date of Exam: 06/12/18 CT HEAD WO-R/O STROKE EXAM: CT HEAD WO-R/O STROKE INDICATION: Leg weakness. Altered mental status. Slurred speech. COMPARISON: CT head without contrast from 08/24/2017. FINDINGS: No intracranial hemorrhage, mass effect, hydrocephalus, or extra-axial fluid collections. No CT evidence of acute infarction. Osseous structures are intact. The visualized paranasal sinuses and mastoids are unremarkable. IMPRESSION: No acute intracranial CT findings. Date of Exam: 06/12/18 CHEST 1 VIEW, AP/PA ONLY INDICATION: Wheezing. EXAMINATION: Portable erect AP chest at 4:42 p.m. FINDINGS: The heart is enlarged and has increased in size since the prior exam of 04/17/2018. Furthermore, in the interval since the prior study, alveolar/interstitial pulmonary infiltrates have developed in the right suprahilar region, the left upper lung and the left midlung. These findings could be secondary to pulmonary edema, pneumonia/atelectasis or a combination of all three. The periphery of the right lung is generally clear and there is no significant pleural effusion in either lung base. The mediastinum is not widened. The osseous structures are intact. There is a loop recorder device again noted overlying the left thorax. IMPRESSION: The appearance of the chest has worsened since the prior study as the heart has increased in size and alveolar/interstitial pulmonary infiltrates have developed, bilaterally, particularly on the left. These abnormal parenchymal densities may be related to pulmonary edema, pneumonia, atelectasis or a combination of all three. A followup exam would be recommended for continued evaluation. Date of Exam: 06/13/18 CHEST 1 VIEW, AP/PA ONLY INDICATION: Followup of infiltrates with shortness of breath. FINDINGS: Bilateral dense infiltrates noted in the upper lobes bilaterally. Moderate perihilar infiltrate noted in the left lower lobe as well. Right lower lung appears clear. The heart is mildly enlarged and has increased in size since 04/17/2018. No evidence of pleural effusion. No pneumothorax. IMPRESSION: 1. Increasing cardiac size. 2. Bilateral infiltrates present increasing in density since previous exam. These could represent inflammatory infiltrates or increasing pulmonary edema. Assessment/Plan Assessment/Plan (1) Severe sepsis Status: Acute Assessment & Plan: 06/13 -secondary to multi-lobar PNA -Day 2 Rocephin, Azithromycin -hypotension, improved after fluid bolus; febrile to 101.5, tachycardia and tachypnea -hydrocortizone 100 mg IV in ED, will start on prednisone (pt with solumedrol allergy) -CRP >15 06/14 -CXR again shows multi-lobar PNA -Day 3 Rocephin, Azithromycin -sputum culture + yeast, + e coli -urine cx + enterococcus -sensitivities indicate both sensitive to Levaquin, will change to 750 Levaquin daily, add Diflucan for yeast -critical care management per Dr. Bautista 06/15 -worsening CXR, concern for ARDS -Azithromycin, Levaquin -stop Diflucan, change to Eraxis -stop prednisone, change to Solu-Medrol 125 mg Q8H - pt allergy is burning skin and eye irritation, at this point it is felt that the potential benefit outweighs the risks; will monitor closely for signs of allergic rxn to medication -bronch this AM -sputum cx + yeast, + e coli -urine cx + enterococcus -blood cx with no growth to date -attempted to contact family; message left for daughter Kaycee that pt is critically ill and her overall prognosis is guarded at best; the next 48 hours will be critical (2) Multilobar lung infiltrate Status: Acute Assessment & Plan: 06/13 -bilateral upper lobe infiltrates and left lower lobe infiltrate -day 2 rocephin and azithromycin -start prednisone 40 mg PO daily -start bipap to see if that improves pt's respiratory status -repeat CXR in AM; can get CT if needed, pt reports she just requires benadryl with contrast and can tolerate ok - will hold off for now due to DEBRA -consult to Dr. Bautista 06/14 -WBC 5.8 --> 6.3 -CRP 25.63 -sputum cx + yeast, e coli -Day 2 azithromycin and rocephin -stop rocephin, start levaquin based on sputum sensitivities 06/15 -WBC 5.8 --> 6.3 --> 8.7 -sputum + yeast, + e coli -Day 3 antibiotics - azithromycin, levaquin -diflucan changed to Eraxis -bronch today by Dr. Bautista; large amount of bloody sputum; no active bleeding seen but concern for pulmonary hemorrhage - will stop plavix and lovenox and monitor closely -CXR shows worsening, CTA from yesterday showed 5 lobe disease -prognosis is guarded at best (3) Acute respiratory failure with hypoxia Status: Acute Assessment & Plan: 06/15 -patient now on ventilator day 2, FiO2 at 50% -requiring a significant amount of sedation to tolerate vent, currently on both precedex and propofol -ABG this AM pH 7.33, pCO2 46, pO2 158 -worsening CXR, concerning for ARDS (4) Hyponatremia Status: Resolved (5) Acute renal injury due to sepsis Status: Resolved (6) Rheumatoid arthritis Status: Chronic Assessment & Plan: 06/13 -pt on Xeljanz 5 mg BID - hold for now 06/15 -continue to hold Xeljanz -extensive review of pt's chart, both hospital and clinic show that pt's current Pairer Inspector is Dr. Ohara at [facility]; per progress notes in clinic system, pt's RA has been considered in remission since before 05/15/15, as that note reports it as "still in remission" -first diagnosed in 2005, at one point patient was on methotrexate and Yamilka Qualifiers: Qualified Codes: M06.9 - Rheumatoid arthritis, unspecified (7) Elevated LFTs Status: Acute Assessment & Plan: 06/13 -pt's history notes a history of fatty liver disease -AST 45 on admission -recheck in AM 06/14 -AST remains elevated, now 38 06/15 -pt requiring both precedex and propofol for sedation -will add fentanyl gtt, as she is on large dose of propofol given her hx of fatty liver disease and elevated LFT on arrival (8) Hemoptysis Status: Acute Assessment & Plan: 06/13 -called by nursing staff last night that patient was coughing up thick bloody sputum -pt with RA and on Xeljanz -will check Quanterferon Gold for TB and send sputum for culture -place in isolation in negative pressure room until TB ruled out, although chances are low -pt states she had TB test before starting Xeljanz that was negative 06/14 -results of TB testing pending, pt to remain in isolation until result obtained 06/15 -preliminary results returned last night - negative for TB; pt taken out of TB isolation -bronch this AM by Dr. Bautista shows large amount of old bloody sputum but no active bleeding -consider pulmonary hemorrhage; will hold plavix and lovenox (9) Anemia Assessment & Plan: 06/13 -Hgb 11.1 --> 10.1 -recheck in AM 06/14 -Hgb 11.1 --> 10.1 --> 10.3 06/15 -Hgb 10.4 this AM Qualifiers: Qualified Codes: D64.9 - Anemia, unspecified (10) Cardiomegaly Status: Acute Assessment & Plan: 06/13 -CXR from yesterday and this AM both note significant enlargement from previous CXR on 04/17/18 -will check echo in AM 06/14 -CXR shows stable cardiomegaly -echo pending 06/15 -echo shows hyperdynamic LV, with EF 80-85%, Grade 2 Diastolic Dysfunction, tricuspid valve with mild to moderate regurgitation and pulmonary artery pressure estimated to be 50-55 mmHg (11) Grade II diastolic dysfunction Assessment & Plan: -new from pt's previous echo 08/24/2017, which made no mention of diastolic dysfunction (12) Tricuspid regurgitation Status: Chronic Assessment & Plan: -mild to moderate per echo, has previously been mild on echo for the last several years at least Qualifiers: Qualified Codes: I36.1 - Nonrheumatic tricuspid (valve) insufficiency (13) Pulmonary hypertension Status: Acute Assessment & Plan: 06/15 -pulmonary artery systolic pressure estimated 50-55 mmHg -previous 25 mmHg (Aug 2017), 20 mmHg (January 2017), 30 mmHg (2011) (14) Sleep apnea Status: Chronic Assessment & Plan: -pt has CPAP at home but reported to nursing staff that she does not wear it -requiring BiPap now for acute respiratory failure -encourage compliance with CPAP use after discharge Qualifiers: Qualified Codes: G47.33 - Obstructive sleep apnea (adult) (pediatric) (15) Coronary artery disease Status: Chronic Assessment & Plan: Moderate, non-obstructive CAD per history 06/15 -extensive chart review -2010 cardiac cath: mid RCA 30% plaquing, distal RCA 40-50% disease; LAD with 40 -50% lesion after first diagonal Qualifiers: Qualified Codes: I25.10 - Atherosclerotic heart disease of [place] coronary artery without angina pectoris (16) Anxiety Status: Chronic Assessment & Plan: 06/13 -clinic notes show that patient is being tapered off her Xanax -pt appears extremely anxious at the time of exam -IV ativan now while placing patient on Bipap 06/14 -intubated, now on precedex and propofol 06/15 -remains intubated on precedex and propofol (17) Bacteria in urine Status: Acute Assessment & Plan: 06/13 -large bacteria on UA -urine cx pending -pt on rocephin for PNA which should provide adequate coverage until cx results available 06/14 -enterococcus per cx -change rocephin to levaquin based on sensitivities 06/15 -urine cx + enterococcus -levaquin 750 mg Q24h -abx day 3 (18) Chronic pain Status: Chronic Assessment & Plan: 06/15 -pt normally on tramadol and gabapentin for chronic pain -will place on fentanyl gtt, as she is requiring large amounts of precedex and propofol and it could potential be secondary to some of her chronic pain Qualifiers: Qualified Codes: G89.29 - Other chronic pain (19) Tobacco abuse Status: Chronic Assessment & Plan: -cessation encouraged (20) Weakness Status: Acute Assessment & Plan: 06/13 -pt reports that she has gotten weaker over the last few days and had a few falls -PT to eval and treat 06/14 -pt now intubated, will have PT see after extubated (21) Elevated d-dimer Status: Acute Assessment & Plan: 06/14 -2.11 on admission --> 2.95 -CTA pending -doppler of LE shows no evidence of DVT 06/15 -CTA showed no evidence of PE (22) History of stroke Status: Chronic Assessment & Plan: 2016, pt has some residual hemiplegia continue home meds 06/15 -extensive chart review -April 2017 pt presented to [place] ED with left facial and leg weakness, known to be well 2 hours previous; CT head unremarkable for hemorrhage or acute process, TPA given at recommendation of neurology; pt was noted to have patent vertebral arteries, <40% stenosis ICA bilaterally -08/24/17 patient presented with acute onset of weakness and slurred speech ~80 minutes prior; [facility] contacted, and they recommended TPA, which was given. CT Head showed mild periventricular and deep white matter hypodensities suggestive of chronic microvascular ischemic changes and 4 mm metallic foreign body at left frontal outer skull table suggestive of prior injury but identified no acute process -given current appearance of pulmonary hemorrhage, hold plavix and lovenox (23) DVT prophylaxis Status: Acute Assessment & Plan: 40 mg Lovenox SQ daily 06/15 -chemoprophylaxis on hold due to concern for pulmonary hemorrhage; SCDS in place (24) Obesity (BMI 30-39.9) Status: Chronic Clinical Quality Measures DVT/VTE Risk/Contraindication: VTE Present on Admission: No Risk Factor Score Per Nursin RFS Level Per Nursing on Admit: 4+=Very High Contraindications-Pharm: Other *list below* Other: bronch this AM shows significant amount of bloody sputum, concern for pulmonary hemorrhage; holding all blood thinners; pt has SCDs on. Pneumonia: Pseudomonal Risk: COPD Copy Copies To 1: [facility]/ROHIT MORRISON DO Jun 15, 2018 12:24
[2018-06-15] MEDS: methylPREDNISolone 125 MG (Solu-MEDROL) VIAL IV SCH ×2 (13:18→22:22)
[2018-06-15] MEDS: fentaNYL INJECTION 1,250 MCG in NS (IVPB) 250 ML IV SCH (13:30)
[2018-06-15] MEDS ORDERED: predniSONE 20 MG TAB NG SCH (17:00)
[2018-06-15] MEDS: LACTATED RINGERS 1,000 ML IV SCH (20:09)
[2018-06-15] MEDS: SIMvastatin 40 MG (ZOCOR) TAB PO SCH (21:03)
[2018-06-15] MEDS: AZITHROMYCIN 500 MG/NS 250 ML IVPB IV SCH ×2 (21:03)
[2018-06-16] VITALS (35 sets, daily range): BP systolic 110–172; BP diastolic 56–104
[2018-06-16] MEDS: NOREPINEPHRINE 4 MG in NS (IVPB) 250 ML IV SCH (01:13)
[2018-06-16] MEDS: DEXMEDETOMIDINE INJECTION 400 MCG in NS (IVPB) 96 ML IV SCH ×5 (01:54→21:50)
[2018-06-16] MEDS: RT-ALBUTEROL/IPRATROPIUM 3 ML (DUONEB) VIAL INH SCH ×6 (02:18→23:03)
[2018-06-16 04:19] LABS: BASOPHILS % (AUTO) 0 % (0-10); EOSINOPHILS % (AUTO) 0 % (0-10); HEMATOCRIT 31 % (35-52); HEMOGLOBIN 10.2 G/DL (11.5-16.0); LYMPHOCYTES # (AUTO) 0.7 X 10^3 (1.0-4.0); LYMPHOCYTES % (AUTO) 10 % (12-44); MEAN CORPUSCULAR HEMOGLOBIN 30 PG (25-34); MEAN CORPUSCULAR HGB CONC 33 G/DL (32-36); MEAN CORPUSCULAR VOLUME 90 FL (80-99); MEAN PLATELET VOLUME 9.3 FL (7.4-10.4); MONOCYTES # (AUTO) 0.4 X 10^3 (0.0-1.0); MONOCYTES % (AUTO) 5 % (0-12); NEUTROPHILS # (AUTO) 6.4 X 10^3 (1.8-7.8); NEUTROPHILS % (AUTO) 85 % (42-75); PLATELET COUNT 314 10^3/uL (130-400); RED CELL DISTRIBUTION WIDTH 15.9 % (10.0-14.5); WHITE BLOOD COUNT 7.6 10^3/uL (4.3-11.0)
[2018-06-16 04:20] LABS: ABG BASE EXCESS -0.4 MMOL/L (-2.5-2.5); ABG OXYGEN SATURATION 98 % (94-100); ABG PCO2 41 MMHG (35-45); ABG PH 7.39 (7.37-7.43); ABG PO2 97 MMHG (79-93); ABG TCO2 25.3 MMOL/L (21.0-31.0)
[2018-06-16 04:23] LABS: ALLENS TEST ART LINE; INSPIRED O2 50%; PATIENT TEMP 98.1; VENTILATOR YES
[2018-06-16 04:39] LABS: BUN/CREATININE RATIO 15; CALCIUM 8.6 MG/DL (8.5-10.1); CARBON DIOXIDE 23 MMOL/L (21-32); CHLORIDE 107 MMOL/L (98-107); GFR ESTIMATED > 60; GLUCOSE 169 MG/DL (70-105); MAGNESIUM 2.2 MG/DL (1.8-2.4); PHOSPHORUS 2.6 MG/DL (2.3-4.7); POTASSIUM 3.9 MMOL/L (3.6-5.0); SODIUM 138 MMOL/L (135-145)
[2018-06-16] MEDS: POTASSIUM CL 10MEQ/50ML IVPB 50 ML IV SCH ×5 (05:29→07:50)
[2018-06-16] MEDS: CATHETER FLUSH 10 ML SYR IV SCH ×3 (05:30→22:39)
[2018-06-16] MEDS: MAGNESIUM 1 GM/100 ML IVPB 100 ML IV SCH (05:30)
[2018-06-16] MEDS: KCL 20 MEQ TAB (K-DUR) PO SCH (05:30)
[2018-06-16] MEDS: methylPREDNISolone 125 MG (Solu-MEDROL) VIAL IV SCH ×3 (05:42→22:40)
[2018-06-16] MEDS ORDERED: BUMETANIDE 1 MG/4 ML (BUMEX) VIAL ONE (06:12)
--- NOTE | 2018-06-16 06:13 | Pulmonary Progress Note ---
Subjective Time Seen by Provider: 06:21 Subjective/Events-last exam pt is sedated on vent. SHe is requiring less oxygen today. Sepsis Event Evaluation Height, Weight, BMI Height: 5'6.00" Weight: 244lbs. 2.0oz. 110.988217oo; 37.8 BMI Method:Stated Focused Exam Lactate Level 06/13/18 06:57: Lactic Acid Level 1.89 Exam Exam Vital Signs Date Time Temp Pulse Resp B/P (MAP) Pulse Ox O2 Delivery O2 Flow Rate FiO2 06/16/18 05:23 159/68 06/16/18 05:00 71 25 160/68 (98) 99 Mechanical Ventilator 50.00 06/16/18 04:53 71 24 99 50 06/16/18 04:00 73 23 157/68 (97) 100 Mechanical Ventilator 50.00 06/16/18 04:00 98 Mechanical Ventilator 50 06/16/18 03:00 77 25 158/70 (99) 98 Mechanical Ventilator 50.00 06/16/18 02:38 151/68 06/16/18 02:19 71 22 97 50 06/16/18 02:00 72 25 161/72 (101) 97 Mechanical Ventilator 50.00 06/16/18 01:00 73 06/16/18 01:00 73 24 172/86 (114) 98 Mechanical Ventilator 50.00 06/16/18 00:15 76 24 99 50 06/16/18 00:00 97.9 06/16/18 00:00 97 Mechanical Ventilator 50 06/16/18 00:00 78 26 151/68 (95) 99 Mechanical Ventilator 50.00 06/15/18 23:44 108/53 06/15/18 23:00 77 22 154/72 (99) 97 Mechanical Ventilator 50.00 06/15/18 22:16 68 24 97 50 06/15/18 22:00 64 14 162/89 (113) 97 Mechanical Ventilator 50.00 06/15/18 21:00 77 21 151/66 (94) 100 Mechanical Ventilator 50.00 06/15/18 20:55 154/68 06/15/18 20:04 90 31 99 50 06/15/18 20:00 97 Mechanical Ventilator 50 06/15/18 20:00 92 27 137/81 (99) 90 Mechanical Ventilator 50.00 06/15/18 20:00 98.8 06/15/18 19:00 84 23 145/62 (89) 97 Mechanical Ventilator 50.00 06/15/18 19:00 84 06/15/18 18:47 80 24 97 50 06/15/18 18:09 160/72 9 18:00 80 21 160/69 (99) 93 Mechanical Ventilator 50.00 06/15/18 17:00 81 24 162/72 (102) 94 Mechanical Ventilator 50.00 06/15/18 16:27 84 23 96 50 06/15/18 16:11 100 Mechanical Ventilator 50 06/15/18 16:05 98.6 Mechanical Ventilator 50.00 06/15/18 16:00 82 15 134/54 (80) 94 Mechanical Ventilator 50.00 06/15/18 15:10 152/67 06/15/18 15:00 81 26 147/65 (92) 96 Mechanical Ventilator 50.00 06/15/18 14:48 80 25 96 50 06/15/18 14:00 79 23 146/65 (92) 97 Mechanical Ventilator 50.00 06/15/18 13:49 97.9 Mechanical Ventilator 50.00 06/15/18 13:00 76 25 119/56 (77) 100 Mechanical Ventilator 40.00 06/15/18 12:58 81 26 95 50 06/15/18 12:53 124/59 06/15/18 12:50 100 Mechanical Ventilator 50 06/15/18 12:44 77 06/15/18 12:00 84 29 134/51 (78) 82 Mechanical Ventilator 40.00 06/15/18 11:00 75 25 124/58 (80) 89 Mechanical Ventilator 40.00 06/15/18 10:44 Mechanical Ventilator 40.00 06/15/18 10:25 78 21 97 50 06/15/18 10:22 124/59 06/15/18 10:00 99.3 Mechanical Ventilator 50.00 06/15/18 10:00 71 23 133/62 (85) 100 Mechanical Ventilator 50.00 06/15/18 09:00 76 25 140/65 (90) 97 Mechanical Ventilator 100.00 06/15/18 08:10 100 Mechanical Ventilator 60 06/15/18 08:00 91 58 149/63 (91) 85 Mechanical Ventilator 100.00 06/15/18 07:50 73 25 97 75 06/15/18 07:00 76 9/5/18 07:00 76 28 142/72 (95) 100 Mechanical Ventilator 100.00 06/15/18 06:45 Mechanical Ventilator 100.00 06/15/18 06:30 Mechanical Ventilator 100.00 06/15/18 06:15 Mechanical Ventilator 100.00 I & O 06/16/18 07:00 Intake Total 1670 ml Output Total 1790 ml Balance -120 ml Height & Weight Height: 5'6.00" Weight: 244lbs. 2.0oz. 110.400538nb; 37.8 BMI Method:Stated General Appearance: WD/WN, Mild Distress (unresponsive on vent) HEENT: Pharynx Normal (ET TUBE in PLace ) Neck: Non Tender, Supple Respiratory: Crackles, Decreased Breath Sounds, Expiration, Wheezing Cardiovascular: Regular Rate, Rhythm, No Murmur Capillary Refill: Less Than 3 Seconds Peripheral Pulses: 2+ Radial Pulses (R), 2+ Radial Pulses (L) Gastrointestinal: normal bowel sounds, non tender, soft, no organomegaly Extremity: Normal Capillary Refill, Normal Range of Motion, Non Tender Neurologic/Psychiatric: No Motor/Sensory Deficits, Disoriented Skin: Normal Color, Warm/Dry Lymphatic: No Adenopathy Results Lab Laboratory Tests 06/15/18 03:15 06/16/18 04:05 Assessment/Plan Assessment/Plan Acute respiratory failure secondary to pneumonia r/o alveolar hemorrhage s/p bronchoscopy -Bilateral LE dopplers - echocardiogram -Sputum cultures reviewed will change diflucan to Eraxis -KVO IVF -Continue Lasix -Await viramontes cultures -Hold Lovenox and plavix -Check ANCA, MAX, antiglomerular basement Ab. -Solumedrol 125mg IV Q 6 ARDS -increase PEEP to 8 -Will give 2mg of bumex COPDAE -DuoNeb Q4 UTI with Sepsis -Continue Abx therapy -Currently on Rocephin and azithromycin -Will hold off on advancing antibiotics for now. If pt spikes another fever will increase Abx coverage. Combative with RN last night/Metabolic encephalopathy - multifactorial including sepsis and extensive sedating medications -CT head without contrast on admission is negative HX of depression -- I question if pt is BiPolar -PT is on 300mg of Effexor XR - daily -will decrease to 150mg for now Acute renal failure -improved -present on admission -D/C tordol HX of CVA and TPA in the past -CT on admission was negative DVT/GI PPX -Continue protonix and lovenox QUINN VELÁZQUEZ DO Jun 16, 2018 06:13
[2018-06-16] MEDS ORDERED: BUMETANIDE 1 MG/4 ML (BUMEX) VIAL IV ONE ×2 (06:30)
[2018-06-16] MEDS: LACTATED RINGERS 1,000 ML IV SCH (06:45)
[2018-06-16 07:05] LABS: ALANINE AMINOTRANSFERASE 18 U/L (0-55); ALKALINE PHOSPHATASE 66 U/L (40-136); BILIRUBIN,TOTAL 0.5 MG/DL (0.1-1.0); BUN/CREATININE RATIO 16; CALCIUM 8.5 MG/DL (8.5-10.1); CARBON DIOXIDE 23 MMOL/L (21-32); CHLORIDE 106 MMOL/L (98-107); CREATININE SERUM 0.81 MG/DL (0.60-1.30); GFR ESTIMATED > 60; GLUCOSE 166 MG/DL (70-105); POTASSIUM 3.8 MMOL/L (3.6-5.0); SODIUM 137 MMOL/L (135-145); TOTAL PROTEIN 6.3 GM/DL (6.4-8.2)
--- NOTE | 2018-06-16 08:05 | Diagnostic Imaging Report ---
INDICATION: Shortness of breath Portable chest 3:20 AM There is an ET tube projecting over the trachea. NG tube enters the stomach. There are diffuse alveolar infiltrates in the lungs which appear similar to the previous day. There is no appreciable effusion or pneumothorax. PICC line tip projects over the right azygos vein. IMPRESSION: Diffuse pulmonary infiltrates unchanged from previous day. PICC line appears to be in the right azygos vein. Dictated by: Dictated on workstation # [id number]
--- NOTE | 2018-06-16 08:14 | Physical Therapy Progress Note ---
Therapy Progress Note Patient currently sedated and on ventilator. No skilled PT intervention required at this time. Will continue to monitor patient status. FIDEL JARQUIN PT Jun 16, 2018 08:14
--- NOTE | 2018-06-16 08:44 | Progress Note (SOAP) ---
Subjective Subjective/Events-last exam Pt remains sedated and on ventilator. No acute events overnight, patient has been able to come down slightly on her oxygen requirements. Throughout the day the patient has had issues with hypotension and bradycardia whenever she is suctioned or turned. She has copious amounts of secretions, and thus is requiring large amounts of sedation for when she needs turning or suctioning. Review of Systems Date Seen by Provider: Jun 16, 2018 Time Seen by Provider: 15:45 intubated and sedated Objective Exam Last Set of Vital Signs Vital Signs Date Time Temp Pulse Resp B/P (MAP) Pulse Ox O2 Delivery O2 Flow Rate FiO2 06/16/18 08:03 95 27 91 35 06/16/18 06:00 138/62 (87) Mechanical Ventilator 50.00 06/16/18 00:00 97.9 Capillary Refill : Greater Than 3 SecondsLess Than 3 Seconds I&O Intake and Output 06/15/18 23:59 Intake Total 2060 ml Output Total 1675 ml Balance 385 ml IV Total 1810 ml Other 250 ml Output Urine Total 1675 ml General: Other (heavily sedated and on ventilator) HEENT: Atraumatic, Mucous Memb Moist/[place] Neck: Supple, No Thyromegaly Lungs: Other (diminished, crackles and wheezes) Heart: Regular Rate, Normal S1, Normal S2, Other (generalized edema) Abdomen: Normal Bowel Sounds, Soft, No Masses, Other (mild distension) Extremities: No Clubbing, No Cyanosis, Normal Pulses Skin: No Rashes, No Significant Lesion Neuro: Other (sedated on ventilator) Results/Procedures Lab Laboratory Tests 06/15/18 12:55: Glucometer 132H 06/15/18 18:51: Glucometer 189H 06/16/18 01:09: Glucometer 173H 06/16/18 04:05: White Blood Count 7.6, Red Blood Count 3.40L, Hemoglobin 10.2L, Hematocrit 31L, Mean Corpuscular Volume 90, Mean Corpuscular Hemoglobin 30, Mean Corpuscular Hemoglobin Concent 33, Red Cell Distribution Width 15.9H, Platelet Count 314, Mean Platelet Volume 9.3, Neutrophils (%) (Auto) 85H, Lymphocytes (%) (Auto) 10L , Monocytes (%) (Auto) 5, Eosinophils (%) (Auto) 0, Basophils (%) (Auto) 0, Neutrophils # (Auto) 6.4, Lymphocytes # (Auto) 0.7L, Monocytes # (Auto) 0.4, Eosinophils # (Auto) 0.0, Basophils # (Auto) 0.0, Blood Gas Puncture Site RT RADIAL, Blood Gas Patient Temperature 98.1, Arterial Blood pH 7.39, Arterial Blood Partial Pressure CO2 41, Arterial Blood Partial Pressure O2 97H, Arterial Blood HCO3 24, Arterial Blood Total CO2 25.3, Arterial Blood Oxygen Saturation 98, Arterial Blood Base Excess -0.4, Tanner Test ART LINE, Blood Gas Ventilator Setting YES, Blood Gas Inspired Oxygen 50%, Sodium Level 138, Potassium Level 3.9, Chloride Level 107, Carbon Dioxide Level 23, Anion Gap 8, Blood Urea Nitrogen 12, Creatinine 0.80, Estimat Glomerular Filtration Rate > 60, BUN/ Creatinine Ratio 15, Glucose Level 169H, Calcium Level 8.6, Phosphorus Level 2.6 , Magnesium Level 2.2 06/16/18 04:40: Sodium Level 137, Potassium Level 3.8, Chloride Level 106, Carbon Dioxide Level 23, Anion Gap 8, Blood Urea Nitrogen 13, Creatinine 0.81, Estimat Glomerular Filtration Rate > 60, BUN/Creatinine Ratio 16, Glucose Level 166H, Calcium Level 8.5, Corrected Calcium 9.3, Total Bilirubin 0.5, Aspartate Amino Transf ( AST/SGOT) 19, Alanine Aminotransferase (ALT/SGPT) 18, Alkaline Phosphatase 66, Total Protein 6.3L, Albumin 3.0L Microbiology 06/12/18 Blood Culture - Preliminary, Resulted No growth 06/13/18 Mycobacterial Culture - Preliminary, Resulted 06/12/18 Urine Culture - Final, Complete Enterococcus faecalis Radiology Date of Exam: 06/12/18 CT HEAD WO-R/O STROKE EXAM: CT HEAD WO-R/O STROKE INDICATION: Leg weakness. Altered mental status. Slurred speech. COMPARISON: CT head without contrast from 08/24/2017. FINDINGS: No intracranial hemorrhage, mass effect, hydrocephalus, or extra-axial fluid collections. No CT evidence of acute infarction. Osseous structures are intact. The visualized paranasal sinuses and mastoids are unremarkable. IMPRESSION: No acute intracranial CT findings. Date of Exam: 06/12/18 CHEST 1 VIEW, AP/PA ONLY INDICATION: Wheezing. EXAMINATION: Portable erect AP chest at 4:42 p.m. FINDINGS: The heart is enlarged and has increased in size since the prior exam of 04/17/2018. Furthermore, in the interval since the prior study, alveolar/interstitial pulmonary infiltrates have developed in the right suprahilar region, the left upper lung and the left midlung. These findings could be secondary to pulmonary edema, pneumonia/atelectasis or a combination of all three. The periphery of the right lung is generally clear and there is no significant pleural effusion in either lung base. The mediastinum is not widened. The osseous structures are intact. There is a loop recorder device again noted overlying the left thorax. IMPRESSION: The appearance of the chest has worsened since the prior study as the heart has increased in size and alveolar/interstitial pulmonary infiltrates have developed, bilaterally, particularly on the left. These abnormal parenchymal densities may be related to pulmonary edema, pneumonia, atelectasis or a combination of all three. A followup exam would be recommended for continued evaluation. Date of Exam: 06/13/18 CHEST 1 VIEW, AP/PA ONLY INDICATION: Followup of infiltrates with shortness of breath. FINDINGS: Bilateral dense infiltrates noted in the upper lobes bilaterally. Moderate perihilar infiltrate noted in the left lower lobe as well. Right lower lung appears clear. The heart is mildly enlarged and has increased in size since 04/17/2018. No evidence of pleural effusion. No pneumothorax. IMPRESSION: 1. Increasing cardiac size. 2. Bilateral infiltrates present increasing in density since previous exam. These could represent inflammatory infiltrates or increasing pulmonary edema. Assessment/Plan Assessment/Plan (1) Severe sepsis Status: Acute Assessment & Plan: 06/13 -secondary to multi-lobar PNA -Day 2 Rocephin, Azithromycin -hypotension, improved after fluid bolus; febrile to 101.5, tachycardia and tachypnea -hydrocortizone 100 mg IV in ED, will start on prednisone (pt with solumedrol allergy) -CRP >15 06/14 -CXR again shows multi-lobar PNA -Day 3 Rocephin, Azithromycin -sputum culture + yeast, + e coli -urine cx + enterococcus -sensitivities indicate both sensitive to Levaquin, will change to 750 Levaquin daily, add Diflucan for yeast -critical care management per Dr. Bautista 06/15 -worsening CXR, concern for ARDS -Azithromycin, Levaquin -stop Diflucan, change to Eraxis -stop prednisone, change to Solu-Medrol 125 mg Q8H - pt allergy is burning skin and eye irritation, at this point it is felt that the potential benefit outweighs the risks; will monitor closely for signs of allergic rxn to medication -bronch this AM -sputum cx + yeast, + e coli -urine cx + enterococcus -blood cx with no growth to date -attempted to contact family; message left for daughter Kaycee that pt is critically ill and her overall prognosis is guarded at best; the next 48 hours will be critical 06/16 -no improvement in CXR -Eraxis, Azithromycin, Levaquin -Solu-medrol 125 mg Q8H; pt with no sign of intolerance or allergic reaction -blood cx with no growth to date -Day 4 abx (2) ARDS (adult respiratory distress syndrome) Status: Acute (3) Multilobar lung infiltrate Status: Acute Assessment & Plan: 06/13 -bilateral upper lobe infiltrates and left lower lobe infiltrate -day 2 rocephin and azithromycin -start prednisone 40 mg PO daily -start bipap to see if that improves pt's respiratory status -repeat CXR in AM; can get CT if needed, pt reports she just requires benadryl with contrast and can tolerate ok - will hold off for now due to DEBRA -consult to Dr. Bautista 06/14 -WBC 5.8 --> 6.3 -CRP 25.63 -sputum cx + yeast, e coli -Day 2 azithromycin and rocephin -stop rocephin, start levaquin based on sputum sensitivities 06/15 -WBC 5.8 --> 6.3 --> 8.7 -sputum + yeast, + e coli -Day 3 antibiotics - azithromycin, levaquin -diflucan changed to Eraxis -bronch today by Dr. Bautista; large amount of bloody sputum; no active bleeding seen but concern for pulmonary hemorrhage - will stop plavix and lovenox and monitor closely -CXR shows worsening, CTA from yesterday showed 5 lobe disease -prognosis is guarded at best 06/16 -Day 4 abx -Eraxis, Azithromycin, Levaquin -no improvement in CXR (4) Acute respiratory failure with hypoxia Status: Acute Assessment & Plan: 06/15 -patient now on ventilator day 2, FiO2 at 50% -requiring a significant amount of sedation to tolerate vent, currently on both precedex and propofol -ABG this AM pH 7.33, pCO2 46, pO2 158 -worsening CXR, concerning for ARDS 06/16 -Vent Day 3, FiO2 35% -pt requiring large amounts of sedation and still tolerating turning and suctioning very poorly -given 5mg morphine prior to turning and suctioning with less severe hypotension ; pt was previously having systolic pressure drops into the 70s, when morphine given first patient did drop systolic pressure into the upper 80's but very briefly then returned to baseline -will order 5 mg morphine Q1H PRN turning and suctioning, with the hope that patient can wean down on some of her other high dose sedation, currently on propofol, precedex and fentanyl; fentanyl bolus prior to cares did not seem to help, patient did much better with morphine bolus (5) Hyponatremia Status: Resolved (6) Acute renal injury due to sepsis Status: Resolved (7) Rheumatoid arthritis Status: Chronic Assessment & Plan: 06/13 -pt on Xeljanz 5 mg BID - hold for now 06/15 -continue to hold Xeljanz -extensive review of pt's chart, both hospital and clinic show that pt's current Applications Administrator is Dr. Ohara at [facility]; per progress notes in clinic system, pt's RA has been considered in remission since before 05/15/15, as that note reports it as "still in remission" -first diagnosed in 2005, at one point patient was on methotrexate and [place] Qualifiers: Qualified Codes: M06.9 - Rheumatoid arthritis, unspecified (8) Elevated LFTs Status: Resolved Assessment & Plan: 06/13 -pt's history notes a history of fatty liver disease -AST 45 on admission -recheck in AM 06/14 -AST remains elevated, now 38 06/15 -pt requiring both precedex and propofol for sedation -will add fentanyl gtt, as she is on large dose of propofol given her hx of fatty liver disease and elevated LFT on arrival 06/16 -resolved (9) Hemoptysis Status: Acute Assessment & Plan: 06/13 -called by nursing staff last night that patient was coughing up thick bloody sputum -pt with RA and on Xeljanz -will check Quanterferon Gold for TB and send sputum for culture -place in isolation in negative pressure room until TB ruled out, although chances are low -pt states she had TB test before starting Xeljanz that was negative 06/14 -results of TB testing pending, pt to remain in isolation until result obtained 06/15 -preliminary results returned last night - negative for TB; pt taken out of TB isolation -bronch this AM by Dr. Bautista shows large amount of old bloody sputum but no active bleeding -consider pulmonary hemorrhage; will hold plavix and lovenox 06/16 -continues to have blood tinged, copious secretions (10) Anemia Assessment & Plan: 06/13 -Hgb 11.1 --> 10.1 -recheck in AM 06/14 -Hgb 11.1 --> 10.1 --> 10.3 06/15 -Hgb 10.4 this AM 06/16 Hgb 10.2, stable Qualifiers: Qualified Codes: D64.9 - Anemia, unspecified (11) Cardiomegaly Status: Acute Assessment & Plan: 06/13 -CXR from yesterday and this AM both note significant enlargement from previous CXR on 04/17/18 -will check echo in AM 06/14 -CXR shows stable cardiomegaly -echo pending 06/15 -echo shows hyperdynamic LV, with EF 80-85%, Grade 2 Diastolic Dysfunction, tricuspid valve with mild to moderate regurgitation and pulmonary artery pressure estimated to be 50-55 mmHg (12) Grade II diastolic dysfunction Assessment & Plan: -new from pt's previous echo 08/24/2017, which made no mention of diastolic dysfunction (13) Tricuspid regurgitation Status: Chronic Assessment & Plan: -mild to moderate per echo, has previously been mild on echo for the last several years at least Qualifiers: Qualified Codes: I36.1 - Nonrheumatic tricuspid (valve) insufficiency (14) Pulmonary hypertension Status: Acute Assessment & Plan: 06/15 -pulmonary artery systolic pressure estimated 50-55 mmHg -previous 25 mmHg (Aug 2017), 20 mmHg (January 2017), 30 mmHg (2011) (15) Sleep apnea Status: Chronic Assessment & Plan: -pt has CPAP at home but reported to nursing staff that she does not wear it -encourage compliance with CPAP use after discharge Qualifiers: Qualified Codes: G47.33 - Obstructive sleep apnea (adult) (pediatric) (16) Coronary artery disease Status: Chronic Assessment & Plan: Moderate, non-obstructive CAD per history 06/15 -extensive chart review -2010 cardiac cath: mid RCA 30% plaquing, distal RCA 40-50% disease; LAD with 40 -50% lesion after first diagonal Qualifiers: Qualified Codes: I25.10 - Atherosclerotic heart disease of platinum coronary artery without angina pectoris (17) Anxiety Status: Chronic Assessment & Plan: 06/13 -clinic notes show that patient is being tapered off her Xanax -pt appears extremely anxious at the time of exam -IV ativan now while placing patient on Bipap 06/14 -intubated, now on precedex and propofol 06/15 -remains intubated on precedex and propofol (18) Bacteria in urine Status: Acute Assessment & Plan: 06/13 -large bacteria on UA -urine cx pending -pt on rocephin for PNA which should provide adequate coverage until cx results available 06/14 -enterococcus per cx -change rocephin to levaquin based on sensitivities 06/15 -urine cx + enterococcus -levaquin 750 mg Q24h -abx day 3 06/16 -day 4 abx (19) Chronic pain Status: Chronic Assessment & Plan: 06/15 -pt normally on tramadol and gabapentin for chronic pain -will place on fentanyl gtt, as she is requiring large amounts of precedex and propofol and it could potential be secondary to some of her chronic pain Qualifiers: Qualified Codes: G89.29 - Other chronic pain (20) Tobacco abuse Status: Chronic Assessment & Plan: -cessation encouraged (21) Weakness Status: Acute Assessment & Plan: 06/13 -pt reports that she has gotten weaker over the last few days and had a few falls -PT to eval and treat 06/14 -pt now intubated, will have PT see after extubated (22) Elevated d-dimer Status: Acute Assessment & Plan: 06/14 -2.11 on admission --> 2.95 -CTA pending -doppler of LE shows no evidence of DVT 06/15 -CTA showed no evidence of PE (23) History of stroke Status: Chronic Assessment & Plan: 2016, pt has some residual hemiplegia continue home meds 06/15 -extensive chart review -April 2017 pt presented to [place] [facility] with left facial and leg weakness, known to be well 2 hours previous; CT head unremarkable for hemorrhage or acute process, TPA given at recommendation of neurology; pt was noted to have patent vertebral arteries, <40% stenosis ICA bilaterally -08/24/17 patient presented with acute onset of weakness and slurred speech ~80 minutes prior; Neurology contacted, and they recommended TPA, which was given. CT Head showed mild periventricular and deep white matter hypodensities suggestive of chronic microvascular ischemic changes and 4 mm metallic foreign body at left frontal outer skull table suggestive of prior injury but identified no acute process -given current appearance of pulmonary hemorrhage, hold plavix and lovenox (24) DVT prophylaxis Status: Acute Assessment & Plan: 40 mg Lovenox SQ daily 06/15 -chemoprophylaxis on hold due to concern for pulmonary hemorrhage; SCDS in place (25) Obesity (BMI 30-39.9) Status: Chronic Clinical Quality Measures DVT/VTE Risk/Contraindication: VTE Present on Admission: No Risk Factor Score Per Nursin RFS Level Per Nursing on Admit: 4+=Very High Contraindications-Pharm: Other *list below* Other: bronch this AM shows significant amount of bloody sputum, concern for pulmonary hemorrhage; holding all blood thinners; pt has SCDs on. Pneumonia: Pseudomonal Risk: COPD Copy Copies To 1: [facility]/ROHIT MORRISON DO Jun 16, 2018 08:44
[2018-06-16] MEDS: VENlafaxine 75 MG (EFFEXOR) TAB PO SCH ×2 (08:46→20:07)
[2018-06-16] MEDS: meTOprolol TARTRATE 25 MG (LOPRESSOR) TABLET PO SCH ×2 (08:46→20:07)
[2018-06-16] MEDS: PANTOPRAZOLE 40 MG (PROTONIX) VIAL IV SCH (08:46)
[2018-06-16] MEDS: LORATADINE (CLARITIN) 10 MG TAB PO SCH (08:46)
[2018-06-16] MEDS: FLUTICASONE NASAL SPRAY (FLONASE) 16 GM BTL NS SCH (08:47)
[2018-06-16] MEDS: LEVOFLOXACIN 750 MG/150 ML IV 150 ML IV SCH (08:47)
[2018-06-16] MEDS: ANIDULAFUNGIN INJECTION 100 MG in NS (IVPB) 100 ML IV SCH (08:47)
[2018-06-16] MEDS: fentaNYL INJECTION 1,250 MCG in NS (IVPB) 250 ML IV SCH (10:28)
[2018-06-16] MEDS: fentaNYL INJECTION 100 MCG/2 ML AMP IV PRN (15:09)
[2018-06-16] MEDS ORDERED: morphine INJ 10 MG/ML 1ML (SYR OR VIAL) IVP NR (15:45)
[2018-06-16] MEDS ORDERED: LORazepam INJ 2 MG/ML (ATIVAN) VIAL ONE (18:21)
[2018-06-16] MEDS: LORazepam INJ 2 MG/ML (ATIVAN) VIAL IVP PRN (18:29)
[2018-06-16] MEDS: SIMvastatin 40 MG (ZOCOR) TAB PO SCH (20:07)
[2018-06-16] MEDS: AZITHROMYCIN 500 MG/NS 250 ML IVPB IV SCH ×2 (20:07)
[2018-06-16] MEDS: POLYETHYLENE GLYCOL 17 GM (MIRALAX) PACK PO SCH (20:10)
[2018-06-16] MEDS ORDERED: POLYETHYLENE GLYCOL 17 GM (MIRALAX) PACK NG SCH (21:00)
[2018-06-17] VITALS (28 sets, daily range): BP systolic 139–178; BP diastolic 60–85
[2018-06-17] MEDS: DEXMEDETOMIDINE INJECTION 400 MCG in NS (IVPB) 96 ML IV SCH ×3 (01:06→07:32)
[2018-06-17] MEDS: fentaNYL INJECTION 1,250 MCG in NS (IVPB) 250 ML IV SCH ×3 (01:11→18:32)
[2018-06-17] MEDS: RT-ALBUTEROL/IPRATROPIUM 3 ML (DUONEB) VIAL INH SCH ×6 (02:25→23:05)
[2018-06-17 03:42] LABS: ABG BASE EXCESS 1.1 MMOL/L (-2.5-2.5); ABG OXYGEN SATURATION 96 % (94-100); ABG PCO2 41 MMHG (35-45); ABG PH 7.41 (7.37-7.43); ABG PO2 80 MMHG (79-93); ABG TCO2 26.4 MMOL/L (21.0-31.0)
[2018-06-17 03:43] LABS: ALLENS TEST ART LINE; BASOPHILS % (AUTO) 0 % (0-10); EOSINOPHILS % (AUTO) 0 % (0-10); HEMATOCRIT 32 % (35-52); HEMOGLOBIN 10.4 G/DL (11.5-16.0); INSPIRED O2 30%; LYMPHOCYTES # (AUTO) 1.1 X 10^3 (1.0-4.0); LYMPHOCYTES % (AUTO) 12 % (12-44); MEAN CORPUSCULAR HEMOGLOBIN 30 PG (25-34); MEAN CORPUSCULAR HGB CONC 33 G/DL (32-36); MEAN CORPUSCULAR VOLUME 91 FL (80-99); MONOCYTES # (AUTO) 0.6 X 10^3 (0.0-1.0); MONOCYTES % (AUTO) 7 % (0-12); NEUTROPHILS # (AUTO) 7.2 X 10^3 (1.8-7.8); NEUTROPHILS % (AUTO) 81 % (42-75); PATIENT TEMP 99.2; PLATELET COUNT 341 10^3/uL (130-400); RED BLOOD COUNT 3.52 10^6/uL (4.35-5.85); RED CELL DISTRIBUTION WIDTH 16.1 % (10.0-14.5); VENTILATOR YES; WHITE BLOOD COUNT 8.9 10^3/uL (4.3-11.0)
[2018-06-17 04:00] LABS: BUN/CREATININE RATIO 26; CALCIUM 8.4 MG/DL (8.5-10.1); CARBON DIOXIDE 21 MMOL/L (21-32); CHLORIDE 105 MMOL/L (98-107); CREATININE SERUM 0.86 MG/DL (0.60-1.30); GFR ESTIMATED > 60; GLUCOSE 181 MG/DL (70-105); MAGNESIUM 2.4 MG/DL (1.8-2.4); PHOSPHORUS 2.4 MG/DL (2.3-4.7); POTASSIUM 4.1 MMOL/L (3.6-5.0); SODIUM 137 MMOL/L (135-145)
--- NOTE | 2018-06-17 05:36 | Pulmonary Progress Note ---
Subjective Time Seen by Provider: 05:51 Subjective/Events-last exam Pt is sedated on vent. RN states she is unable to decrease Diprivan secondary to patient agitation. Sepsis Event Evaluation Height, Weight, BMI Height: 5'6.00" Weight: 244lbs. 2.0oz. 110.891933fd; 37.8 BMI Method:Stated Exam Exam Vital Signs Date Time Temp Pulse Resp B/P (MAP) Pulse Ox O2 Delivery O2 Flow Rate FiO2 06/17/18 05:00 64 14 168/71 (103) 92 Mechanical Ventilator 30.00 06/17/18 05:00 99.2 64 14 168/71 92 Mechanical Ventilator 30.00 06/17/18 04:30 63 24 93 30 06/17/18 04:00 69 19 164/76 (105) 95 Mechanical Ventilator 30.00 06/17/18 03:30 99.2 06/17/18 03:11 96.1 68 26 165/76 93 Mechanical Ventilator 30.00 06/17/18 03:00 71 19 166/71 (102) 94 Mechanical Ventilator 30.00 06/17/18 02:25 62 20 95 30 06/17/18 02:00 64 17 167/74 (105) 93 Mechanical Ventilator 30.00 06/17/18 01:05 96.1 68 26 165/76 93 Mechanical Ventilator 30.00 06/17/18 01:00 68 06/17/18 01:00 66 29 162/74 (103) 93 Mechanical Ventilator 30.00 06/17/18 00:20 66 23 94 30 06/17/18 00:14 Mechanical Ventilator 30.00 06/17/18 00:07 68 26 165/76 (105) 93 Mechanical Ventilator 35.00 06/17/18 00:00 93 Mechanical Ventilator 30 06/16/18 23:03 60 23 96 30 06/16/18 23:00 61 15 166/104 (124) 96 Mechanical Ventilator 35.00 06/16/18 22:00 58 16 164/75 (104) 96 Mechanical Ventilator 35.00 06/16/18 21:00 63 14 164/77 (106) 96 Mechanical Ventilator 35.00 06/16/18 20:41 67 23 94 35 06/16/18 20:15 96.1 71 20 163/69 95 Mechanical Ventilator 35.00 06/16/18 20:00 95 Mechanical Ventilator 35 9/6/18 20:00 70 17 165/69 (101) 91 Mechanical Ventilator 35.00 06/16/18 19:49 71 18 19:29 96.1 70 20 163/69 (100) 95 Mechanical Ventilator 35.00 618 18:57 62 20 94 35 9/6/18 18:00 60 20 164/74 (104) 96 Mechanical Ventilator 35.00 06/16/18 17:00 71 23 135/63 (87) 93 Mechanical Ventilator 35.00 06/16/18 16:40 98.9 Mechanical Ventilator 35.00 06/16/18 16:05 60 26 90 35 06/16/18 16:01 Mechanical Ventilator 35 06/16/18 16:00 61 19 148/63 (91) 91 Mechanical Ventilator 35.00 06/16/18 15:11 140/59 06/16/18 15:10 126/64 06/16/18 15:00 64 21 136/57 (83) 94 Mechanical Ventilator 35.00 06/16/18 14:16 80 30 95 35 06/16/18 14:00 58 19 143/63 (89) 95 Mechanical Ventilator 35.00 06/16/18 13:00 64 06/16/18 13:00 62 23 132/65 (87) 94 Mechanical Ventilator 35.00 06/16/18 12:35 Mechanical Ventilator 35 06/16/18 12:00 61 20 145/59 (87) 96 Mechanical Ventilator 35.00 06/16/18 11:00 61 20 149/59 (89) 96 Mechanical Ventilator 35.00 06/16/18 10:40 156/66 06/16/18 10:40 156/66 06/16/18 10:20 64 23 98 35 18 10:00 66 21 141/72 (95) 97 Mechanical Ventilator 35.00 06/16/18 09:00 69 22 152/67 (95) 97 Mechanical Ventilator 35.00 06/16/18 08:50 97.6 Mechanical Ventilator 35.00 06/16/18 08:45 Mechanical Ventilator 35 18 08:20 159/81 06/16/18 08:03 95 27 91 35 06/16/18 08:00 95 21 130/56 (80) 98 Mechanical Ventilator 50.00 06/16/18 07:00 73 06/16/18 07:00 72 21 143/61 (88) 97 Mechanical Ventilator 50.00 06/16/18 06:14 72 23 98 35 06/16/18 06:00 70 27 138/62 (87) 99 Mechanical Ventilator 50.00 I & O 06/17/18 07:00 Intake Total 1375 ml Output Total 3050 ml Balance -1675 ml Height & Weight Height: 5'6.00" Weight: 244lbs. 2.0oz. 110.275926nj; 37.8 BMI Method:Stated General Appearance: WD/WN, Mild Distress (unresponsive on vent) HEENT: Pharynx Normal (ET TUBE in PLace ) Neck: Non Tender, Supple Respiratory: Crackles, Decreased Breath Sounds, Expiration, Wheezing Cardiovascular: Regular Rate, Rhythm, No Murmur Capillary Refill: Less Than 3 Seconds Peripheral Pulses: 2+ Radial Pulses (R), 2+ Radial Pulses (L) Gastrointestinal: normal bowel sounds, non tender, soft, no organomegaly Extremity: Normal Capillary Refill, Normal Range of Motion, Non Tender Neurologic/Psychiatric: No Motor/Sensory Deficits, Disoriented Skin: Normal Color, Warm/Dry Lymphatic: No Adenopathy Results Lab Laboratory Tests 06/16/18 04:05 06/16/18 04:40 06/17/18 03:30 Assessment/Plan Assessment/Plan Acute respiratory failure secondary to pneumonia r/o alveolar hemorrhage s/p bronchoscopy - - Eraxis -Will give 40mg of Lasix today. -KVO IVF -Await viramontes cultures -Hold Lovenox and plavix -Check ANCA, antiglomerular basement Ab. MAX is positive. Pt has hx of RA -Solumedrol 125mg IV Q 6 -Sedation: fentanyl is at 150mcg/hr, Propofol is 60mg, increase precedex-- attempt to decrease propofol ARDS - improving Pa02/Fi02 = 266 was 194 -PEEP to 8 COPDAE -DuoNeb Q4 UTI with Sepsis -Continue Abx therapy -Currently on Rocephin and azithromycin -Will hold off on advancing antibiotics for now. If pt spikes another fever will increase Abx coverage. Combative with RN last night/Metabolic encephalopathy - multifactorial including sepsis and extensive sedating medications -CT head without contrast on admission is negative HX of depression -- I question if pt is BiPolar Acute renal failure -improved -present on admission -D/C tordol HX of CVA and TPA in the past -CT on admission was negative DVT/GI PPX -Continue protonix and lovenox QUINN VELÁZQUEZ DO Jun 17, 2018 05:36
[2018-06-17] MEDS: CATHETER FLUSH 10 ML SYR IV SCH ×3 (05:55→21:59)
[2018-06-17] MEDS: KCL 20 MEQ TAB (K-DUR) PO SCH (05:56)
[2018-06-17] MEDS: POTASSIUM CL 10MEQ/50ML IVPB 50 ML IV SCH ×3 (05:56→07:42)
[2018-06-17] MEDS: MAGNESIUM 1 GM/100 ML IVPB 100 ML IV SCH (05:56)
[2018-06-17] MEDS ORDERED: FUROSEMIDE 40 MG/4 ML INJ (LASIX) IVP NR (06:00)
[2018-06-17] MEDS: LORazepam INJ 2 MG/ML (ATIVAN) VIAL IVP PRN ×2 (06:32→21:16)
[2018-06-17] MEDS: methylPREDNISolone 125 MG (Solu-MEDROL) VIAL IV SCH ×3 (06:32→23:34)
--- NOTE | 2018-06-17 08:02 | Physical Therapy Progress Note ---
Therapy Progress Note Patient continues to be sedated and on mechanical ventilator. PT will continue to monitor. FIDEL JARQUIN PT Jun 17, 2018 08:02
--- NOTE | 2018-06-17 09:01 | Diagnostic Imaging Report ---
Indication: Dyspnea. Comparison study: Chest from June 16. Findings: A portable upright view of the chest demonstrates an endotracheal tube, orogastric tube and left arm PICC line remaining in place. Diffuse bilateral pulmonary infiltrates have improved. No pleural effusions are seen. Impression: There has been some improvement in the diffuse bilateral pulmonary infiltrates. No pleural effusion is present. Dictated by: Dictated on workstation # [id number]
[2018-06-17] MEDS: PANTOPRAZOLE 40 MG (PROTONIX) VIAL IV SCH (09:03)
[2018-06-17] MEDS: LEVOFLOXACIN 750 MG/150 ML IV 150 ML IV SCH (09:03)
[2018-06-17] MEDS: LORATADINE (CLARITIN) 10 MG TAB PO SCH (09:03)
[2018-06-17] MEDS: meTOprolol TARTRATE 25 MG (LOPRESSOR) TABLET PO SCH ×2 (09:03→21:15)
[2018-06-17] MEDS: FLUTICASONE NASAL SPRAY (FLONASE) 16 GM BTL NS SCH (09:16)
[2018-06-17] MEDS: DEXMEDETOMIDINE INJECTION 1,000 MCG in NS (IVPB) 240 ML IV SCH ×4 (09:57→23:36)
[2018-06-17] MEDS: ANIDULAFUNGIN INJECTION 100 MG in NS (IVPB) 100 ML IV SCH (09:58)
--- NOTE | 2018-06-17 10:17 | Progress Note (SOAP) ---
Subjective Subjective/Events-last exam No acute events overnight. Patient continues to have copious secretions, and difficulty with tolerating suctioning and turning. She has been able to wean off Precedex, and nursing staff reports that she is tolerating suctioning and turning with morphine given before. She has been somewhat hypertensive with systolic blood pressures in the 160's. She has also been able to wean down to FiO2 30%, on vent day #4. Tube feeding started today. Review of Systems Date Seen by Provider: Jun 17, 2018 Time Seen by Provider: 15:00 intubated and sedated Objective Exam Last Set of Vital Signs Vital Signs Date Time Temp Pulse Resp B/P (MAP) Pulse Ox O2 Delivery O2 Flow Rate FiO2 06/17/18 10:08 97.4 06/17/18 10:00 59 19 178/85 (116) 94 Mechanical Ventilator 30.00 06/17/18 09:00 30 Capillary Refill : Greater Than 3 SecondsLess Than 3 Seconds I&O Intake and Output 06/17/18 00:00 Intake Total 1455 ml Output Total 2965 ml Balance -1510 ml IV Total 1335 ml Other 120 ml Output Urine Total 2890 ml Gastric Drainage Total 75 ml General: No Acute Distress, Other (intubated and sedated) HEENT: Atraumatic, Mucous Memb Moist/Sophia, Other (mild conjunctival injection) Neck: Supple, No Thyromegaly Lungs: Other (diminished with diffuse wheezing and coarseness, but improved from previous) Heart: Regular Rate, Normal S1, Normal S2, Other (soft murmur best heard at left sternal border) Abdomen: Normal Bowel Sounds, Soft, No Masses Extremities: No Clubbing, No Cyanosis, Normal Pulses, Other (generalized edema) Skin: No Rashes, No Significant Lesion Neuro: Other (sedated ) Psych/Mental Status: Other (sedated) Results/Procedures Lab Laboratory Tests 06/16/18 14:57: Glucometer 141H 06/16/18 18:44: Glucometer 158H 06/17/18 00:45: Glucometer 172H 06/17/18 03:30: White Blood Count 8.9, Red Blood Count 3.52L, Hemoglobin 10.4L, Hematocrit 32L, Mean Corpuscular Volume 91, Mean Corpuscular Hemoglobin 30, Mean Corpuscular Hemoglobin Concent 33, Red Cell Distribution Width 16.1H, Platelet Count 341, Mean Platelet Volume 9.0, Neutrophils (%) (Auto) 81H, Lymphocytes (%) (Auto) 12 , Monocytes (%) (Auto) 7, Eosinophils (%) (Auto) 0, Basophils (%) (Auto) 0, Neutrophils # (Auto) 7.2, Lymphocytes # (Auto) 1.1, Monocytes # (Auto) 0.6, Eosinophils # (Auto) 0.0, Basophils # (Auto) 0.0, Blood Gas Puncture Site RIGHT RADIAL, Blood Gas Patient Temperature 99.2, Arterial Blood pH 7.41, Arterial Blood Partial Pressure CO2 41, Arterial Blood Partial Pressure O2 80, Arterial Blood HCO3 25, Arterial Blood Total CO2 26.4, Arterial Blood Oxygen Saturation 96, Arterial Blood Base Excess 1.1, Tanner Test ART LINE, Blood Gas Ventilator Setting YES, Blood Gas Inspired Oxygen 30%, Sodium Level 137, Potassium Level 4.1, Chloride Level 105, Carbon Dioxide Level 21, Anion Gap 11, Blood Urea Nitrogen 22H, Creatinine 0.86, Estimat Glomerular Filtration Rate > 60, BUN/ Creatinine Ratio 26, Glucose Level 181H, Calcium Level 8.4L, Phosphorus Level 2.4, Magnesium Level 2.4 Microbiology 06/12/18 Blood Culture - Preliminary, Resulted No growth 06/15/18 Mycobacterial Culture - Preliminary, Resulted See Comments 06/12/18 Urine Culture - Final, Complete Enterococcus faecalis Radiology Date of Exam: 06/12/18 CT HEAD WO-R/O STROKE EXAM: CT HEAD WO-R/O STROKE INDICATION: Leg weakness. Altered mental status. Slurred speech. COMPARISON: CT head without contrast from 08/24/2017. FINDINGS: No intracranial hemorrhage, mass effect, hydrocephalus, or extra-axial fluid collections. No CT evidence of acute infarction. Osseous structures are intact. The visualized paranasal sinuses and mastoids are unremarkable. IMPRESSION: No acute intracranial CT findings. Date of Exam: 06/12/18 CHEST 1 VIEW, AP/PA ONLY INDICATION: Wheezing. EXAMINATION: Portable erect AP chest at 4:42 p.m. FINDINGS: The heart is enlarged and has increased in size since the prior exam of 04/17/2018. Furthermore, in the interval since the prior study, alveolar/interstitial pulmonary infiltrates have developed in the right suprahilar region, the left upper lung and the left midlung. These findings could be secondary to pulmonary edema, pneumonia/atelectasis or a combination of all three. The periphery of the right lung is generally clear and there is no significant pleural effusion in either lung base. The mediastinum is not widened. The osseous structures are intact. There is a loop recorder device again noted overlying the left thorax. IMPRESSION: The appearance of the chest has worsened since the prior study as the heart has increased in size and alveolar/interstitial pulmonary infiltrates have developed, bilaterally, particularly on the left. These abnormal parenchymal densities may be related to pulmonary edema, pneumonia, atelectasis or a combination of all three. A followup exam would be recommended for continued evaluation. Date of Exam: 06/13/18 CHEST 1 VIEW, AP/PA ONLY INDICATION: Followup of infiltrates with shortness of breath. FINDINGS: Bilateral dense infiltrates noted in the upper lobes bilaterally. Moderate perihilar infiltrate noted in the left lower lobe as well. Right lower lung appears clear. The heart is mildly enlarged and has increased in size since 04/17/2018. No evidence of pleural effusion. No pneumothorax. IMPRESSION: 1. Increasing cardiac size. 2. Bilateral infiltrates present increasing in density since previous exam. These could represent inflammatory infiltrates or increasing pulmonary edema. Assessment/Plan Assessment/Plan (1) Severe sepsis Status: Acute Assessment & Plan: 06/13 -secondary to multi-lobar PNA -Day 2 Rocephin, Azithromycin -hypotension, improved after fluid bolus; febrile to 101.5, tachycardia and tachypnea -hydrocortizone 100 mg IV in ED, will start on prednisone (pt with solumedrol allergy) -CRP >15 06/14 -CXR again shows multi-lobar PNA -Day 3 Rocephin, Azithromycin -sputum culture + yeast, + e coli -urine cx + enterococcus -sensitivities indicate both sensitive to Levaquin, will change to 750 Levaquin daily, add Diflucan for yeast -critical care management per Dr. Bautista 06/15 -worsening CXR, concern for ARDS -Azithromycin, Levaquin -stop Diflucan, change to Eraxis -stop prednisone, change to Solu-Medrol 125 mg Q8H - pt allergy is burning skin and eye irritation, at this point it is felt that the potential benefit outweighs the risks; will monitor closely for signs of allergic rxn to medication -bronch this AM -sputum cx + yeast, + e coli -urine cx + enterococcus -blood cx with no growth to date -attempted to contact family; message left for daughter Kaycee that pt is critically ill and her overall prognosis is guarded at best; the next 48 hours will be critical 06/16 -no improvement in CXR -Eraxis, Azithromycin, Levaquin -Solu-medrol 125 mg Q8H; pt with no sign of intolerance or allergic reaction -blood cx with no growth to date -Day 4 abx 06/17 -some improvement in CXR from previous -Eraxis, Levaquin -Day 5 abx -Solu-medrol 125 mg Q8H Day 3 - no signs of intolerance or allergy -blood cx no growth to date (2) ARDS (adult respiratory distress syndrome) Status: Acute Assessment & Plan: 06/17 -Vent Day 4 -Solu-Medrol 125 mg Q8H - Day 3 -some improvement in CXR this AM (3) Multilobar lung infiltrate Status: Acute Assessment & Plan: 06/13 -bilateral upper lobe infiltrates and left lower lobe infiltrate -day 2 rocephin and azithromycin -start prednisone 40 mg PO daily -start bipap to see if that improves pt's respiratory status -repeat CXR in AM; can get CT if needed, pt reports she just requires benadryl with contrast and can tolerate ok - will hold off for now due to DEBRA -consult to Dr. Bautista 06/14 -WBC 5.8 --> 6.3 -CRP 25.63 -sputum cx + yeast, e coli -Day 2 azithromycin and rocephin -stop rocephin, start levaquin based on sputum sensitivities 06/15 -WBC 5.8 --> 6.3 --> 8.7 -sputum + yeast, + e coli -Day 3 antibiotics - azithromycin, levaquin -diflucan changed to Eraxis -bronch today by Dr. Bautista; large amount of bloody sputum; no active bleeding seen but concern for pulmonary hemorrhage - will stop plavix and lovenox and monitor closely -CXR shows worsening, CTA from yesterday showed 5 lobe disease -prognosis is guarded at best 06/16 -Day 4 abx -Eraxis, Azithromycin, Levaquin -no improvement in CXR 06/17 -Day 5 abx -Eraxis, Levaquin -Azithromycin completed -some improvement in CXR compared to yesterday (4) Acute respiratory failure with hypoxia Status: Acute Assessment & Plan: 06/15 -patient now on ventilator day 2, FiO2 at 50% -requiring a significant amount of sedation to tolerate vent, currently on both precedex and propofol -ABG this AM pH 7.33, pCO2 46, pO2 158 -worsening CXR, concerning for ARDS 06/16 -Vent Day 3, FiO2 35% -pt requiring large amounts of sedation and still tolerating turning and suctioning very poorly -given 5mg morphine prior to turning and suctioning with less severe hypotension ; pt was previously having systolic pressure drops into the 70s, when morphine given first patient did drop systolic pressure into the upper 80's but very briefly then returned to baseline -will order 5 mg morphine Q1H PRN turning and suctioning, with the hope that patient can wean down on some of her other high dose sedation, currently on propofol, precedex and fentanyl; fentanyl bolus prior to cares did not seem to help, patient did much better with morphine bolus 06/17 -Vent Day 4 -FiO2 30% -continues to have copious secretions, but tolerating suctioning better with morphine prior -precedex off this AM, propofol and fentanyl gtt (5) Hyperglycemia, drug-induced Status: Acute Assessment & Plan: 06/17 -HgbA1C checked on admission, <6.5 and patient without existing diagnosis of diabetes -elevated glucose secondary to high dose steroids -glucose over last 24 hours 166 - 141 - 158 - 172 - 181 -Pulmacort started today -NovoLog sliding scale B Q6 hours (6) Hypertension Status: Chronic Assessment & Plan: 06/17 -patient on home dose of lopressor 50 mg BID, HR is 60 -over last ~24 hours patient with elevated blood pressures -add 10 mg amlodipine per NG, as suspect HR will not tolerate increased beta danuta dose Qualifiers: Qualified Codes: I10 - Essential (primary) hypertension (7) Acute renal injury due to sepsis Status: Resolved (8) Rheumatoid arthritis Status: Chronic Assessment & Plan: 06/13 -pt on Xeljanz 5 mg BID - hold for now 06/15 -continue to hold Xeljanz -extensive review of pt's chart, both hospital and clinic show that 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 Ohara at [facility]; per progress notes in clinic system, pt's RA has been considered in remission since before 05/15/15, as that note reports it as "still in remission" -first diagnosed in 2005, at one point patient was on methotrexate and Yamilka 06/17 -MAX positive, 1:640, homogenous -anti-yarelis antibody positive -SS-A Ro antibody positive, La antibody negative Qualifiers: Qualified Codes: M06.9 - Rheumatoid arthritis, unspecified (9) Elevated LFTs Status: Resolved (10) Hemoptysis Status: Acute Assessment & Plan: 06/13 -called by nursing staff last night that patient was coughing up thick bloody sputum -pt with RA and on Xeljanz -will check Quanterferon Gold for TB and send sputum for culture -place in isolation in negative pressure room until TB ruled out, although chances are low -pt states she had TB test before starting Xeljanz that was negative 06/14 -results of TB testing pending, pt to remain in isolation until result obtained 06/15 -preliminary results returned last night - negative for TB; pt taken out of TB isolation -bronch this AM by Dr. Bautista shows large amount of old bloody sputum but no active bleeding -consider pulmonary hemorrhage; will hold plavix and lovenox 06/16 -continues to have blood tinged, copious secretions (11) Anemia Assessment & Plan: 06/13 -Hgb 11.1 --> 10.1 -recheck in AM 06/14 -Hgb 11.1 --> 10.1 --> 10.3 06/15 -Hgb 10.4 this AM 06/16 Hgb 10.2, stable 06/17 Hgb 10.4, stable Qualifiers: Qualified Codes: D64.9 - Anemia, unspecified (12) Cardiomegaly Status: Acute Assessment & Plan: 06/13 -CXR from yesterday and this AM both note significant enlargement from previous CXR on 04/17/18 -will check echo in AM 06/14 -CXR shows stable cardiomegaly -echo pending 06/15 -echo shows hyperdynamic LV, with EF 80-85%, Grade 2 Diastolic Dysfunction, tricuspid valve with mild to moderate regurgitation and pulmonary artery pressure estimated to be 50-55 mmHg (13) Grade II diastolic dysfunction Assessment & Plan: -new from pt's previous echo 08/24/2017, which made no mention of diastolic dysfunction (14) Tricuspid regurgitation Status: Chronic Assessment & Plan: -mild to moderate per echo, has previously been mild on echo for the last several years at least Qualifiers: Qualified Codes: I36.1 - Nonrheumatic tricuspid (valve) insufficiency (15) Pulmonary hypertension Status: Acute Assessment & Plan: 06/15 -pulmonary artery systolic pressure estimated 50-55 mmHg -previous 25 mmHg (Aug 2017), 20 mmHg (January 2017), 30 mmHg (2011) (16) Sleep apnea Status: Chronic Assessment & Plan: -pt has CPAP at home but reported to nursing staff that she does not wear it -encourage compliance with CPAP use after discharge Qualifiers: Qualified Codes: G47.33 - Obstructive sleep apnea (adult) (pediatric) (17) Coronary artery disease Status: Chronic Assessment & Plan: Moderate, non-obstructive CAD per history 06/15 -extensive chart review -2010 cardiac cath: mid RCA 30% plaquing, distal RCA 40-50% disease; LAD with 40 -50% lesion after first diagonal Qualifiers: Qualified Codes: I25.10 - Atherosclerotic heart disease of [place] coronary artery without angina pectoris (18) Anxiety Status: Chronic (19) Bacteria in urine Status: Acute Assessment & Plan: 06/13 -large bacteria on UA -urine cx pending -pt on rocephin for PNA which should provide adequate coverage until cx results available 06/14 -enterococcus per cx -change rocephin to levaquin based on sensitivities 06/15 -urine cx + enterococcus -levaquin 750 mg Q24h -abx day 3 06/16 -day 4 abx 06/17 -day 5 abx (20) Chronic pain Status: Chronic Assessment & Plan: 06/15 -pt normally on tramadol and gabapentin for chronic pain -will place on fentanyl gtt, as she is requiring large amounts of precedex and propofol and it could potential be secondary to some of her chronic pain 06/17 -fentanyl gtt, morphine PRN Qualifiers: Qualified Codes: G89.29 - Other chronic pain (21) Tobacco abuse Status: Chronic Assessment & Plan: -cessation encouraged (22) Weakness Status: Acute Assessment & Plan: 06/13 -pt reports that she has gotten weaker over the last few days and had a few falls -PT to eval and treat 06/14 -pt now intubated, will have PT see after extubated 06/17 -PT working with patient daily for passive range of motion while intubated (23) Elevated d-dimer Status: Acute Assessment & Plan: 06/14 -2.11 on admission --> 2.95 -CTA pending -doppler of LE shows no evidence of DVT 06/15 -CTA showed no evidence of PE (24) History of stroke Status: Chronic Assessment & Plan: 2016, pt has some residual hemiplegia continue home meds 06/15 -extensive chart review -April 2017 pt presented to [place] ED with left facial and leg weakness, known to be well 2 hours previous; CT head unremarkable for hemorrhage or acute process, TPA given at recommendation of neurology; pt was noted to have patent vertebral arteries, <40% stenosis ICA bilaterally -08/24/17 patient presented with acute onset of weakness and slurred speech ~80 minutes prior; [facility] contacted, and they recommended TPA, which was given. CT Head showed mild periventricular and deep white matter hypodensities suggestive of chronic microvascular ischemic changes and 4 mm metallic foreign body at left frontal outer skull table suggestive of prior injury but identified no acute process -given current appearance of pulmonary hemorrhage, hold plavix and lovenox (25) DVT prophylaxis Status: Acute Assessment & Plan: 40 mg Lovenox SQ daily 06/15 -chemoprophylaxis on hold due to concern for pulmonary hemorrhage; SCDS in place (26) Obesity (BMI 30-39.9) Status: Chronic (27) Hyponatremia Status: Resolved Clinical Quality Measures DVT/VTE Risk/Contraindication: VTE Present on Admission: No Risk Factor Score Per Nursin RFS Level Per Nursing on Admit: 4+=Very High Contraindications-Pharm: Other *list below* Other: bronch this AM shows significant amount of bloody sputum, concern for pulmonary hemorrhage; holding all blood thinners; pt has SCDs on. Pneumonia: Pseudomonal Risk: COPD Copy Copies To 1: [facility]/ROHIT MORRISON DO Jun 17, 2018 10:17
[2018-06-17] MEDS: morphine INJ 10 MG/ML 1ML (SYR OR VIAL) IVP PRN ×4 (12:04→18:24)
[2018-06-17] MEDS ORDERED: amLODIPine 10 MG (NORVASC) TAB NG NR (15:30)
[2018-06-17] MEDS ORDERED: BISACODYL 10 MG SUPP (DULCOLAX) PR PRN (18:15)
[2018-06-17] MEDS: inSUlin ASPART (NovoLOG) 1 UNIT/0.01 ML (CHARGE PER UNIT) SC SCH (18:24)
[2018-06-17] MEDS: LACTATED RINGERS 1,000 ML IV SCH ×2 (20:51→21:15)
[2018-06-17] MEDS: ATORVASTATIN 20 MG (LIPITOR) TABLET PO SCH (21:15)
[2018-06-17] MEDS: POLYETHYLENE GLYCOL 17 GM (MIRALAX) PACK PO SCH (21:15)
[2018-06-17] MEDS: ARTIFICIAL TEARS OINT (LACRI-LUBE) 3.5 GM TUBE OU SCH (21:16)
[2018-06-18] VITALS (36 sets, daily range): BP systolic 75–171; BP diastolic 46–85
[2018-06-18] MEDS: morphine INJ 10 MG/ML 1ML (SYR OR VIAL) IVP PRN ×4 (00:01→12:43)
[2018-06-18] MEDS: inSUlin ASPART (NovoLOG) 1 UNIT/0.01 ML (CHARGE PER UNIT) SC SCH ×5 (01:12→23:23)
[2018-06-18] MEDS: RT-ALBUTEROL/IPRATROPIUM 3 ML (DUONEB) VIAL INH SCH ×6 (01:30→21:03)
[2018-06-18] MEDS: fentaNYL INJECTION 1,250 MCG in NS (IVPB) 250 ML IV SCH ×3 (02:38→17:57)
[2018-06-18] MEDS: LORazepam INJ 2 MG/ML (ATIVAN) VIAL IVP PRN ×2 (03:05→12:43)
[2018-06-18 04:08] LABS: BASOPHILS % (AUTO) 0 % (0-10); EOSINOPHILS % (AUTO) 0 % (0-10); HEMATOCRIT 31 % (35-52); HEMOGLOBIN 10.2 G/DL (11.5-16.0); LYMPHOCYTES # (AUTO) 0.9 X 10^3 (1.0-4.0); LYMPHOCYTES % (AUTO) 10 % (12-44); MEAN CORPUSCULAR HEMOGLOBIN 30 PG (25-34); MEAN CORPUSCULAR HGB CONC 33 G/DL (32-36); MEAN CORPUSCULAR VOLUME 91 FL (80-99); MEAN PLATELET VOLUME 8.7 FL (7.4-10.4); MONOCYTES # (AUTO) 0.7 X 10^3 (0.0-1.0); MONOCYTES % (AUTO) 7 % (0-12); NEUTROPHILS # (AUTO) 7.7 X 10^3 (1.8-7.8); NEUTROPHILS % (AUTO) 82 % (42-75); PLATELET COUNT 326 10^3/uL (130-400); RED BLOOD COUNT 3.43 10^6/uL (4.35-5.85); RED CELL DISTRIBUTION WIDTH 16.1 % (10.0-14.5); WHITE BLOOD COUNT 9.4 10^3/uL (4.3-11.0)
[2018-06-18 04:09] LABS: ABG BASE EXCESS 2.5 MMOL/L (-2.5-2.5); ABG OXYGEN SATURATION 94 % (94-100); ABG PCO2 41 MMHG (35-45); ABG PH 7.42 (7.37-7.43); ABG PO2 71 MMHG (79-93)
[2018-06-18 04:15] LABS: ALLENS TEST YES-POS; INSPIRED O2 30%; PATIENT TEMP 97.3; VENTILATOR YES
[2018-06-18 04:24] LABS: BUN/CREATININE RATIO 35; CALCIUM 8.1 MG/DL (8.5-10.1); CARBON DIOXIDE 24 MMOL/L (21-32); CHLORIDE 106 MMOL/L (98-107); CREATININE SERUM 0.81 MG/DL (0.60-1.30); GFR ESTIMATED > 60; GLUCOSE 216 MG/DL (70-105); MAGNESIUM 2.4 MG/DL (1.8-2.4); PHOSPHORUS 2.8 MG/DL (2.3-4.7); POTASSIUM 4.4 MMOL/L (3.6-5.0); SODIUM 138 MMOL/L (135-145)
[2018-06-18] MEDS: DEXMEDETOMIDINE INJECTION 1,000 MCG in NS (IVPB) 240 ML IV SCH ×4 (05:00→23:54)
[2018-06-18] MEDS: POTASSIUM CL 10MEQ/50ML IVPB 50 ML IV SCH (06:01)
[2018-06-18] MEDS: CATHETER FLUSH 10 ML SYR IV SCH ×3 (06:01→22:04)
[2018-06-18] MEDS: MAGNESIUM 1 GM/100 ML IVPB 100 ML IV SCH (06:01)
[2018-06-18] MEDS: KCL 20 MEQ TAB (K-DUR) PO SCH (06:01)
[2018-06-18] MEDS: methylPREDNISolone 125 MG (Solu-MEDROL) VIAL IV SCH ×3 (06:09→22:04)
--- NOTE | 2018-06-18 06:30 | Pulmonary Progress Note ---
Subjective Time Seen by Provider: 06:27 Subjective/Events-last exam Pt appears to be improving. Sepsis Event Evaluation Height, Weight, BMI Height: 5'6.00" Weight: 245lbs. 2.0oz. [id number]; 37.8 BMI Method:Stated Exam Exam Vital Signs Date Time Temp Pulse Resp B/P (MAP) Pulse Ox O2 Delivery O2 Flow Rate FiO2 06/18/18 06:00 60 20 166/67 (100) 95 Mechanical Ventilator 30.00 06/18/18 05:00 64 19 157/64 (95) 96 Mechanical Ventilator 30.00 06/18/18 04:47 97.3 06/18/18 04:29 63 21 95 30 06/18/18 04:00 65 18 156/64 (94) 95 Mechanical Ventilator 30.00 06/18/18 04:00 96 Mechanical Ventilator 30 06/18/18 03:00 70 10 142/73 (96) 92 Mechanical Ventilator 30.00 06/18/18 02:00 64 13 146/63 (90) 95 Mechanical Ventilator 30.00 06/18/18 01:30 61 20 95 30 06/18/18 01:00 62 06/18/18 01:00 62 16 141/60 (87) 95 Mechanical Ventilator 30.00 06/18/18 00:00 98.1 06/18/18 00:00 95 Mechanical Ventilator 30 06/18/18 00:00 64 14 146/61 (89) 95 Mechanical Ventilator 30.00 06/17/18 23:36 96.9 60 20 151/66 95 Mechanical Ventilator 30.00 06/17/18 23:05 60 20 95 30 06/17/18 23:00 64 18 139/62 (87) 96 Mechanical Ventilator 30.00 06/17/18 22:00 61 20 151/66 (94) 94 Mechanical Ventilator 30.00 06/17/18 21:00 65 18 141/60 (87) 96 Mechanical Ventilator 30.00 06/17/18 20:00 64 17 148/63 (91) 95 Mechanical Ventilator 30.00 06/17/18 20:00 96 Mechanical Ventilator 30 06/17/18 19:32 96.9 67 20 139/62 (87) 95 Mechanical Ventilator 30.00 06/17/18 19:02 97.6 06/17/18 19:00 68 06/17/18 19:00 69 13 139/62 (87) 96 Mechanical Ventilator 30.00 06/17/18 18:44 61 22 99 30 06/17/18 18:00 61 9 142/64 (90) 99 Mechanical Ventilator 30.00 06/17/18 17:00 61 12 161/74 (103) 98 Mechanical Ventilator 30.00 06/17/18 16:30 Mechanical Ventilator 30 06/17/18 16:15 64 15 146/66 98 Mechanical Ventilator 30.00 06/17/18 16:14 64 20 147/67 98 Mechanical Ventilator 30.00 06/17/18 16:12 59 22 96 30 06/17/18 16:00 97.6 61 13 151/69 (96) 95 Mechanical Ventilator 30.00 06/17/18 15:00 64 8 152/63 (92) 94 Mechanical Ventilator 30.00 06/17/18 14:27 62 24 95 30 06/17/18 14:00 61 12 164/62 (96) 93 Mechanical Ventilator 30.00 06/17/18 13:00 63 6 159/63 (95) 94 Mechanical Ventilator 30.00 06/17/18 13:00 63 06/17/18 12:10 67 20 158/62 95 Mechanical Ventilator 30.00 06/17/18 12:07 Mechanical Ventilator 30 06/17/18 12:07 99.0 Mechanical Ventilator 30.00 06/17/18 12:00 82 25 164/76 (105) 94 Mechanical Ventilator 30.00 06/17/18 11:00 63 20 155/62 (93) 95 Mechanical Ventilator 30.00 06/17/18 10:47 59 20 97 30 06/17/18 10:08 97.4 06/17/18 10:00 59 19 178/85 (116) 94 Mechanical Ventilator 30.00 06/17/18 09:00 59 22 96 30 06/17/18 09:00 63 22 160/77 (104) 96 Mechanical Ventilator 30.00 06/17/18 08:00 60 19 161/81 (107) 97 Mechanical Ventilator 30.00 06/17/18 07:42 Mechanical Ventilator 30 06/17/18 07:42 97.4 Mechanical Ventilator 30.00 06/17/18 07:37 99.2 62 22 169/74 95 Mechanical Ventilator 30.00 06/17/18 07:07 99.2 62 22 169/74 95 Mechanical Ventilator 30.00 06/17/18 07:02 62 22 95 30 06/17/18 07:00 61 18 164/77 (106) 95 Mechanical Ventilator 30.00 06/17/18 07:00 62 I & O 06/18/18 07:00 Intake Total 1482 ml Output Total 3050 ml Balance -1568 ml Height & Weight Height: 5'6.00" Weight: 245lbs. 2.0oz. 111.688225yz; 37.8 BMI Method:Stated General Appearance: WD/WN, Mild Distress (respiratory) HEENT: PERRL/EOMI, Pharynx Normal Neck: Non Tender, Supple Respiratory: Crackles, Decreased Breath Sounds, Expiration, Wheezing Cardiovascular: Regular Rate, Rhythm, No Murmur Capillary Refill: Less Than 3 Seconds Peripheral Pulses: 2+ Radial Pulses (R), 2+ Radial Pulses (L) Gastrointestinal: normal bowel sounds, non tender, soft, no organomegaly Extremity: Normal Range of Motion, Non Tender Neurologic/Psychiatric: Alert, No Motor/Sensory Deficits, Disoriented Skin: Normal Color, Warm/Dry Lymphatic: No Adenopathy Results Lab Laboratory Tests 06/17/18 03:30 06/18/18 04:00 Assessment/Plan Assessment/Plan Acute respiratory failure secondary to pneumonia r/o alveolar hemorrhage s/p bronchoscopy - - Eraxis - 40mg of Lasix BID -KVO IVF -Tube feeds with pulmicare. -Await viramontes cultures -Hold Lovenox and plavix -Check ANCA, antiglomerular basement Ab. MAX is positive. Pt has hx of RA -Solumedrol 125mg IV Q 8 -Sedation: fentanyl Propofol Ativan ARDS - improving Pa02/Fi02 = 236 was 194 -PEEP to 8 COPDAE -DuoNeb Q4 UTI with Sepsis -Continue Abx therapy -Currently on Rocephin and azithromycin Combative with RN last night/Metabolic encephalopathy - multifactorial including sepsis and extensive sedating medications -CT head without contrast on admission is negative HX of depression -- I question if pt is BiPolar Acute renal failure -improved -present on admission HX of CVA and TPA in the past -CT on admission was negative DVT/GI PPX -Continue protonix QUINN VELÁZQUEZ DO Jun 18, 2018 06:30
[2018-06-18] MEDS: FUROSEMIDE 40 MG/4 ML INJ (LASIX) IVP SCH ×2 (07:54→20:37)
[2018-06-18] MEDS: LEVOFLOXACIN 750 MG/150 ML IV 150 ML IV SCH (07:54)
[2018-06-18] MEDS: DOCUSATE SODIUM 10 MG/ML 10 ML UDC (COLACE) PO SCH ×2 (07:54→20:37)
[2018-06-18] MEDS: LORATADINE (CLARITIN) 10 MG TAB PO SCH (07:54)
[2018-06-18] MEDS: amLODIPine 10 MG (NORVASC) TAB NG SCH (07:54)
[2018-06-18] MEDS: FLUTICASONE NASAL SPRAY (FLONASE) 16 GM BTL NS SCH (07:55)
[2018-06-18] MEDS: meTOprolol TARTRATE 25 MG (LOPRESSOR) TABLET PO SCH ×2 (07:55→20:37)
[2018-06-18] MEDS: ARTIFICIAL TEARS OINT (LACRI-LUBE) 3.5 GM TUBE OU SCH ×3 (08:00→20:38)
[2018-06-18] MEDS: PANTOPRAZOLE 40 MG (PROTONIX) VIAL IV SCH (08:00)
--- NOTE | 2018-06-18 08:13 | Diagnostic Imaging Report ---
INDICATION: Shortness of breath. COMPARISON: 06/17/2018. FINDINGS: Single view of the chest demonstrates well positioned support lines. The heart is prominent with persistent but decreased interstitial infiltrates. Lung volumes remain low. There is no pneumothorax or large effusion. IMPRESSION: 1. Stable support lines. 2. Cardiac enlargement with persistent but decreased interstitial infiltrates. Dictated by: Dictated on workstation # [id number]
[2018-06-18] MEDS: POLYETHYLENE GLYCOL 17 GM (MIRALAX) PACK PO SCH ×2 (09:41→20:37)
[2018-06-18] MEDS: ANIDULAFUNGIN INJECTION 100 MG in NS (IVPB) 100 ML IV SCH (10:08)
--- NOTE | 2018-06-18 15:39 | Progress Note (SOAP) ---
Subjective Subjective/Events-last exam Afebrile. Remains intubated with significant agitation every time she requires turning or suctioning. Review of Systems Date Seen by Provider: Jun 18, 2018 Time Seen by Provider: 11:42 Objective Exam Last Set of Vital Signs Vital Signs Date Time Temp Pulse Resp B/P (MAP) Pulse Ox O2 Delivery O2 Flow Rate FiO2 06/18/18 15:13 98.3 06/18/18 15:11 Mechanical Ventilator 30 06/18/18 14:34 63 137/57 06/18/18 14:30 29 80 30.00 Capillary Refill : Greater Than 3 SecondsLess Than 3 Seconds I&O Intake and Output 06/18/18 00:00 Intake Total 3452 ml Output Total 3525 ml Balance -73 ml Intake Oral 0 ml IV Total 2965 ml Tube Feeding 167 ml Other 320 ml Output Urine Total 2925 ml Gastric Drainage Total 600 ml General: Other (Intubated, sedated) Lungs: Other (ronchi throughout) Heart: Regular Rate, No Murmurs Abdomen: Normal Bowel Sounds Extremities: Other (1+ edema in legs) Results/Procedures Lab Laboratory Tests 06/17/18 18:06: Glucometer 206H 06/18/18 01:05: Glucometer 199H 06/18/18 04:00: White Blood Count 9.4, Red Blood Count 3.43L, Hemoglobin 10.2L, Hematocrit 31L, Mean Corpuscular Volume 91, Mean Corpuscular Hemoglobin 30, Mean Corpuscular Hemoglobin Concent 33, Red Cell Distribution Width 16.1H, Platelet Count 326, Mean Platelet Volume 8.7, Neutrophils (%) (Auto) 82H, Lymphocytes (%) (Auto) 10L , Monocytes (%) (Auto) 7, Eosinophils (%) (Auto) 0, Basophils (%) (Auto) 0, Neutrophils # (Auto) 7.7, Lymphocytes # (Auto) 0.9L, Monocytes # (Auto) 0.7, Eosinophils # (Auto) 0.0, Basophils # (Auto) 0.0, Blood Gas Puncture Site RIGHT RADIAL, Blood Gas Patient Temperature 97.3, Arterial Blood pH 7.42, Arterial Blood Partial Pressure CO2 41, Arterial Blood Partial Pressure O2 71L, Arterial Blood HCO3 27, Arterial Blood Total CO2 28.0, Arterial Blood Oxygen Saturation 94, Arterial Blood Base Excess 2.5, Tanner Test YES-POS, Blood Gas Ventilator Setting YES, Blood Gas Inspired Oxygen 30%, Sodium Level 138, Potassium Level 4.4, Chloride Level 106, Carbon Dioxide Level 24, Anion Gap 8, Blood Urea Nitrogen 28H, Creatinine 0.81, Estimat Glomerular Filtration Rate > 60, BUN/ Creatinine Ratio 35, Glucose Level 216H, Calcium Level 8.1L, Phosphorus Level 2.8, Magnesium Level 2.4 06/18/18 11:32: Glucometer 213H Microbiology 06/12/18 Blood Culture - Preliminary, Resulted No growth 06/15/18 Mycobacterial Culture - Preliminary, Resulted See Comments 06/12/18 Urine Culture - Final, Complete Enterococcus faecalis Radiology Date of Exam: 06/12/18 CT HEAD WO-R/O STROKE EXAM: CT HEAD WO-R/O STROKE INDICATION: Leg weakness. Altered mental status. Slurred speech. COMPARISON: CT head without contrast from 08/24/2017. FINDINGS: No intracranial hemorrhage, mass effect, hydrocephalus, or extra-axial fluid collections. No CT evidence of acute infarction. Osseous structures are intact. The visualized paranasal sinuses and mastoids are unremarkable. IMPRESSION: No acute intracranial CT findings. Date of Exam: 06/12/18 CHEST 1 VIEW, AP/PA ONLY INDICATION: Wheezing. EXAMINATION: Portable erect AP chest at 4:42 p.m. FINDINGS: The heart is enlarged and has increased in size since the prior exam of 04/17/2018. Furthermore, in the interval since the prior study, alveolar/interstitial pulmonary infiltrates have developed in the right suprahilar region, the left upper lung and the left midlung. These findings could be secondary to pulmonary edema, pneumonia/atelectasis or a combination of all three. The periphery of the right lung is generally clear and there is no significant pleural effusion in either lung base. The mediastinum is not widened. The osseous structures are intact. There is a loop recorder device again noted overlying the left thorax. IMPRESSION: The appearance of the chest has worsened since the prior study as the heart has increased in size and alveolar/interstitial pulmonary infiltrates have developed, bilaterally, particularly on the left. These abnormal parenchymal densities may be related to pulmonary edema, pneumonia, atelectasis or a combination of all three. A followup exam would be recommended for continued evaluation. Date of Exam: 06/13/18 CHEST 1 VIEW, AP/PA ONLY INDICATION: Followup of infiltrates with shortness of breath. FINDINGS: Bilateral dense infiltrates noted in the upper lobes bilaterally. Moderate perihilar infiltrate noted in the left lower lobe as well. Right lower lung appears clear. The heart is mildly enlarged and has increased in size since 04/17/2018. No evidence of pleural effusion. No pneumothorax. IMPRESSION: 1. Increasing cardiac size. 2. Bilateral infiltrates present increasing in density since previous exam. These could represent inflammatory infiltrates or increasing pulmonary edema. Assessment/Plan Assessment/Plan (1) Severe sepsis Status: Acute Assessment & Plan: 06/13 -secondary to multi-lobar PNA -hypotension, improved after fluid bolus; febrile to 101.5, tachycardia and tachypnea -hydrocortisone 100 mg IV in ED, will start on prednisone (pt with solumedrol allergy)-CRP >15 06/14 -CXR again shows multi-lobar PNA -Day 3 Rocephin, Azithromycin -sputum culture + yeast, + e coli -urine cx + enterococcus -sensitivities indicate both sensitive to Levaquin, will change to 750 Levaquin daily, add Diflucan for yeast 06/15 -worsening CXR, concern for ARDS -Azithromycin, Levaquin -stop Diflucan, change to Eraxis -stop prednisone, change to Solu-Medrol 125 mg Q8H - pt allergy is burning skin and eye irritation, at this point it is felt that the potential benefit outweighs the risks; will monitor closely for signs of allergic rxn to medication -bronch this AM -blood cx with no growth to date - attempted to contact family; message left for daughter Kaycee that pt is critically ill and her overall prognosis is guarded at best; the next 48 hours will be critical 06/16 -no improvement in CXR -Eraxis, Azithromycin, Levaquin -Solu-medrol 125 mg Q8H; pt with no sign of intolerance or allergic reaction -blood cx with no growth to date -Day 4 abx 06/17 -some improvement in CXR from previous -Eraxis, Levaquin -Day 5 abx -Solu- medrol 125 mg Q8H Day 3 - no signs of intolerance or allergy -blood cx no growth to date 06/18- management per Dr. Bautista, no change in antimicrobials or clinical status (2) ARDS (adult respiratory distress syndrome) Status: Acute Assessment & Plan: 9/7 -Vent Day 4 -Solu-Medrol 125 mg Q8H - Day 3 -some improvement in CXR this AM 06/18- stable with minimal improvement, working on weaning sedation (3) Multilobar lung infiltrate Status: Acute Assessment & Plan: See severe sepsis and ARDS plan (4) Acute respiratory failure with hypoxia Status: Acute Assessment & Plan: 06/15 -patient now on ventilator day 2, FiO2 at 50% -requiring a significant amount of sedation to tolerate vent, currently on both precedex and propofol -ABG this AM pH 7.33, pCO2 46, pO2 158 -worsening CXR, concerning for ARDS 06/16 -Vent Day 3, FiO2 35% -pt requiring large amounts of sedation and still tolerating turning and suctioning very poorly -given 5mg morphine prior to turning and suctioning with less severe hypotension ; pt was previously having systolic pressure drops into the 70s, when morphine given first patient did drop systolic pressure into the upper 80's but very briefly then returned to baseline -will order 5 mg morphine Q1H PRN turning and suctioning, with the hope that patient can wean down on some of her other high dose sedation, currently on propofol, precedex and fentanyl; fentanyl bolus prior to cares did not seem to help, patient did much better with morphine bolus 06/17 -Vent Day 4 -FiO2 30% -continues to have copious secretions, but tolerating suctioning better with morphine prior -precedex off this AM, propofol and fentanyl gtt 06/18- continues on FiO2 30% and with excessive secretions and agitation requiring Precedex, propofol and fentanyl (5) Hyperglycemia, drug-induced Status: Acute Assessment & Plan: 06/17 -HgbA1C checked on admission, <6.5 and patient without existing diagnosis of diabetes -elevated glucose secondary to high dose steroids -glucose over last 24 hours 166 - 141 - 158 - 172 - 181 -Pulmacort started today -NovoLog sliding scale B Q6 hours (6) Hypertension Status: Chronic Assessment & Plan: 06/17 -patient on home dose of lopressor 50 mg BID, HR is 60 -over last ~24 hours patient with elevated blood pressures -add 10 mg amlodipine per NG, as suspect HR will not tolerate increased beta danuta dose Qualifiers: Qualified Codes: I10 - Essential (primary) hypertension (7) Acute renal injury due to sepsis Status: Resolved (8) Rheumatoid arthritis Status: Chronic Assessment & Plan: 06/13 -pt on Xeljanz 5 mg BID - hold for now 06/15 -continue to hold Xeljanz -extensive review of pt's chart, both hospital and clinic show that pt's current [employer]in[employer] is Dr. Ohara at [facility]; per progress notes in clinic system, pt's RA has been considered in remission since before 05/15/15, as that note reports it as "still in remission" -first diagnosed in 2005, at one point patient was on methotrexate and Yamilka 06/17 -MAX positive, 1:640, homogenous -anti-yarelis antibody positive -SS-A Ro antibody positive, La antibody negative Qualifiers: Qualified Codes: M06.9 - Rheumatoid arthritis, unspecified (9) Elevated LFTs Status: Resolved (10) Hemoptysis Status: Acute Assessment & Plan: 06/13 -called by nursing staff last night that patient was coughing up thick bloody sputum -pt with RA and on Xeljanz -will check Quanterferon Gold for TB and send sputum for culture -place in isolation in negative pressure room until TB ruled out, although chances are low -pt states she had TB test before starting Xeljanz that was negative 06/14 -results of TB testing pending, pt to remain in isolation until result obtained 06/15 -preliminary results returned last night - negative for TB; pt taken out of TB isolation -bronch this AM by Dr. Bautista shows large amount of old bloody sputum but no active bleeding -consider pulmonary hemorrhage; will hold plavix and lovenox 06/16 -continues to have blood tinged, copious secretions 06/18 mycobacterial culture remains negative (11) Anemia Assessment & Plan: Stable Qualifiers: Qualified Codes: D64.9 - Anemia, unspecified (12) Cardiomegaly Status: Acute Assessment & Plan: 06/13 -CXR from yesterday and this AM both note significant enlargement from previous CXR on 04/17/18 -will check echo in AM 06/14 -CXR shows stable cardiomegaly -echo pending 06/15 -echo shows hyperdynamic LV, with EF 80-85%, Grade 2 Diastolic Dysfunction, tricuspid valve with mild to moderate regurgitation and pulmonary artery pressure estimated to be 50-55 mmHg (13) Grade II diastolic dysfunction Assessment & Plan: -new from pt's previous echo 08/24/2017, which made no mention of diastolic dysfunction (14) Tricuspid regurgitation Status: Chronic Assessment & Plan: -mild to moderate per echo, has previously been mild on echo for the last several years at least Qualifiers: Qualified Codes: I36.1 - Nonrheumatic tricuspid (valve) insufficiency (15) Pulmonary hypertension Status: Acute Assessment & Plan: 06/15 -pulmonary artery systolic pressure estimated 50-55 mmHg -previous 25 mmHg (Aug 2017), 20 mmHg (January 2017), 30 mmHg (2011) (16) Sleep apnea Status: Chronic Assessment & Plan: -pt has CPAP at home but reported to nursing staff that she does not wear it -encourage compliance with CPAP use after discharge Qualifiers: Qualified Codes: G47.33 - Obstructive sleep apnea (adult) (pediatric) (17) Coronary artery disease Status: Chronic Qualifiers: Qualified Codes: I25.10 - Atherosclerotic heart disease of [place] coronary artery without angina pectoris (18) Anxiety Status: Chronic (19) Bacteria in urine Status: Acute Assessment & Plan: 06/13 -large bacteria on UA -urine cx pending -pt on rocephin for PNA which should provide adequate coverage until cx results available 06/14 -enterococcus per cx -change rocephin to levaquin based on sensitivities 06/15 -urine cx + enterococcus -levaquin 750 mg Q24h -abx day 3 06/16 -day 4 abx 06/17 -day 5 abx 06/18 day 6 abx (20) Chronic pain Status: Chronic Assessment & Plan: 06/15 -pt normally on tramadol and gabapentin for chronic pain -will place on fentanyl gtt, as she is requiring large amounts of precedex and propofol and it could potential be secondary to some of her chronic pain 06/17 -fentanyl gtt, morphine PRN Qualifiers: Qualified Codes: G89.29 - Other chronic pain (21) Tobacco abuse Status: Chronic (22) Weakness Status: Acute (23) Elevated d-dimer Status: Acute Assessment & Plan: 06/14 -2.11 on admission --> 2.95 -CTA pending -doppler of LE shows no evidence of DVT 06/15 -CTA showed no evidence of PE (24) History of stroke Status: Chronic (25) DVT prophylaxis Status: Acute Assessment & Plan: 40 mg Lovenox SQ daily 06/15 -chemoprophylaxis on hold due to concern for pulmonary hemorrhage; SCDS in place (26) Obesity (BMI 30-39.9) Status: Chronic (27) Hyponatremia Status: Resolved Clinical Quality Measures DVT/VTE Risk/Contraindication: VTE Present on Admission: No Risk Factor Score Per Nursin RFS Level Per Nursing on Admit: 4+=Very High Contraindications-Pharm: Other *list below* Other: bronch this AM shows significant amount of bloody sputum, concern for pulmonary hemorrhage; holding all blood thinners; pt has SCDs on. Pneumonia: Pseudomonal Risk: COPD GLENN PEREZ MD Jun 18, 2018 3:39 pm
[2018-06-18] MEDS: ATORVASTATIN 20 MG (LIPITOR) TABLET PO SCH (20:37)
[2018-06-19] VITALS (35 sets, daily range): BP systolic 32–197; BP diastolic 57–138
[2018-06-19] MEDS: RT-ALBUTEROL/IPRATROPIUM 3 ML (DUONEB) VIAL INH SCH ×6 (01:32→21:00)
[2018-06-19] MEDS: fentaNYL INJECTION 1,250 MCG in NS (IVPB) 250 ML IV SCH ×3 (01:48→17:14)
[2018-06-19 03:47] LABS: BASOPHILS % (AUTO) 0 % (0-10); EOSINOPHILS % (AUTO) 0 % (0-10); HEMATOCRIT 28 % (35-52); HEMOGLOBIN 9.6 G/DL (11.5-16.0); LYMPHOCYTES # (AUTO) 0.7 X 10^3 (1.0-4.0); LYMPHOCYTES % (AUTO) 8 % (12-44); MEAN CORPUSCULAR HGB CONC 34 G/DL (32-36); MEAN CORPUSCULAR VOLUME 92 FL (80-99); MEAN PLATELET VOLUME 9.1 FL (7.4-10.4); MONOCYTES # (AUTO) 0.8 X 10^3 (0.0-1.0); MONOCYTES % (AUTO) 8 % (0-12); NEUTROPHILS % (AUTO) 84 % (42-75); PLATELET COUNT 274 10^3/uL (130-400); RED BLOOD COUNT 3.05 10^6/uL (4.35-5.85); WHITE BLOOD COUNT 9.5 10^3/uL (4.3-11.0)
[2018-06-19 03:48] LABS: ABG BASE EXCESS 5.7 MMOL/L (-2.5-2.5); ABG OXYGEN SATURATION 92 % (94-100); ABG PCO2 43 MMHG (35-45); ABG PH 7.45 (7.37-7.43); ABG PO2 63 MMHG (79-93)
[2018-06-19 03:50] LABS: MEAN CORPUSCULAR HEMOGLOBIN 31 PG (25-34)
[2018-06-19 03:51] LABS: ALLENS TEST YES-POS; INSPIRED O2 30%; PATIENT TEMP 98.6; VENTILATOR YES
[2018-06-19 04:05] LABS: BUN/CREATININE RATIO 37; CARBON DIOXIDE 22 MMOL/L (21-32); CHLORIDE 102 MMOL/L (98-107); CREATININE SERUM 0.65 MG/DL (0.60-1.30); GFR ESTIMATED > 60; GLUCOSE 165 MG/DL (70-105); MAGNESIUM 2.3 MG/DL (1.8-2.4); PHOSPHORUS 2.2 MG/DL (2.3-4.7); SODIUM 133 MMOL/L (135-145)
[2018-06-19] MEDS: inSUlin ASPART (NovoLOG) 1 UNIT/0.01 ML (CHARGE PER UNIT) SC SCH ×3 (05:19→17:08)
[2018-06-19] MEDS: MAGNESIUM 1 GM/100 ML IVPB 100 ML IV SCH (05:19)
[2018-06-19] MEDS: KCL 20 MEQ TAB (K-DUR) PO SCH (05:19)
[2018-06-19] MEDS: POTASSIUM CL 10MEQ/50ML IVPB 50 ML IV SCH (05:20)
[2018-06-19] MEDS: CATHETER FLUSH 10 ML SYR IV SCH ×3 (05:20→21:31)
[2018-06-19] MEDS: methylPREDNISolone 125 MG (Solu-MEDROL) VIAL IV SCH ×3 (05:22→21:30)
[2018-06-19] MEDS: DEXMEDETOMIDINE INJECTION 1,000 MCG in NS (IVPB) 240 ML IV SCH ×3 (05:59→21:30)
--- NOTE | 2018-06-19 06:34 | Pulmonary Progress Note ---
Subjective Time Seen by Provider: 06:41 Subjective/Events-last exam Pt still on ventilator Sepsis Event Evaluation Height, Weight, BMI Height: 5'6.00" Weight: 246lbs. 7.0oz. 111.057687ju; 37.8 BMI Method:Stated Exam Exam Vital Signs Date Time Temp Pulse Resp B/P (MAP) Pulse Ox O2 Delivery O2 Flow Rate FiO2 06/19/18 06:00 57 9 32/66 (55) 91 Mechanical Ventilator 35.00 06/19/18 05:46 35 06/19/18 05:32 64 9 167/69 (101) 90 Mechanical Ventilator 35.00 06/19/18 05:19 134/63 06/19/18 05:00 78 21 104/73 (83) 88 Mechanical Ventilator 30.00 06/19/18 04:30 60 22 95 30 06/19/18 04:00 59 15 135/71 (92) 93 Mechanical Ventilator 30.00 06/19/18 04:00 Mechanical Ventilator 30 06/19/18 03:40 98.6 06/19/18 03:00 59 16 105/62 (76) 91 Mechanical Ventilator 30.00 06/19/18 02:00 70 14 102/91 (95) 92 Mechanical Ventilator 30.00 06/19/18 01:42 60 06/19/18 01:32 60 24 96 30 06/19/18 01:00 60 16 84/66 (72) 92 Mechanical Ventilator 30.00 06/19/18 01:00 60 06/19/18 00:00 Mechanical Ventilator 30 06/19/18 00:00 56 9 103/85 (91) 94 Mechanical Ventilator 30.00 06/18/18 23:19 97.2 06/18/18 23:11 59 22 95 30 06/18/18 23:00 61 18 100/74 (83) 95 Mechanical Ventilator 30.00 06/18/18 22:05 60 06/18/18 22:00 61 18 111/85 (94) 95 Mechanical Ventilator 30.00 06/18/18 21:03 64 21 92 30 06/18/18 21:00 60 10 152/59 (90) 92 Mechanical Ventilator 30.00 06/18/18 20:00 61 11 108/79 (89) 90 Mechanical Ventilator 30.00 06/18/18 20:00 Mechanical Ventilator 30 06/18/18 19:45 97.8 9/8/18 19:07 56 23 30 06/18/18 19:00 60 17 155/62 (93) 99 Mechanical Ventilator 30.00 06/18/18 19:00 60 06/18/18 18:00 57 20 144/57 (86) 96 Mechanical Ventilator 30.00 06/18/18 17:14 94 30 06/18/18 17:00 61 16 139/67 (91) 97 Mechanical Ventilator 30.00 06/18/18 16:08 60 25 98 30 06/18/18 16:00 61 19 142/59 (86) 91 Mechanical Ventilator 30.00 06/18/18 15:30 62 21 139/57 (84) 92 Mechanical Ventilator 30.00 06/18/18 15:15 64 19 142/59 (86) 92 Mechanical Ventilator 30.00 06/18/18 15:13 98.3 06/18/18 15:11 Mechanical Ventilator 30 06/18/18 15:00 65 17 140/57 (84) 92 Mechanical Ventilator 30.00 06/18/18 14:34 63 137/57 06/18/18 14:30 71 29 143/71 (95) 80 Mechanical Ventilator 30.00 06/18/18 14:20 63 26 96 30 06/18/18 14:15 64 13 133/55 (81) 96 Mechanical Ventilator 30.00 06/18/18 14:00 64 14 134/55 (81) 96 Mechanical Ventilator 30.00 06/18/18 13:45 65 12 118/55 (76) 97 Mechanical Ventilator 30.00 06/18/18 13:30 67 20 75/64 (68) 96 Mechanical Ventilator 30.00 06/18/18 13:15 64 19 127/54 (78) 89 Mechanical Ventilator 30.00 06/18/18 13:00 65 15 133/46 (75) Mechanical Ventilator 30.00 06/18/18 13:00 65 06/18/18 12:30 67 17 136/50 (78) 92 Mechanical Ventilator 30.00 06/18/18 12:15 71 18 126/53 (77) 82 Mechanical Ventilator 30.00 06/18/18 12:00 68 16 134/49 (77) 94 Mechanical Ventilator 30.00 06/18/18 11:40 93 Mechanical Ventilator 30 06/18/18 11:11 67 22 94 30 06/18/18 11:00 65 19 143/54 (83) 92 Mechanical Ventilator 30.00 06/18/18 10:59 142/54 06/18/18 10:58 142/54 06/18/18 10:00 61 18 157/63 (94) 96 Mechanical Ventilator 30.00 06/18/18 09:00 61 20 167/67 (100) 92 Mechanical Ventilator 30.00 06/18/18 08:00 63 16 171/71 (104) 100 Mechanical Ventilator 30.00 06/18/18 07:58 96 Mechanical Ventilator 30 06/18/18 07:54 155/61 06/18/18 07:53 97.1 Mechanical Ventilator 30.00 06/18/18 07:47 60 18 95 30 06/18/18 07:00 60 17 169/68 (101) 94 Mechanical Ventilator 30.00 06/18/18 07:00 60 I & O 06/19/18 07:00 Intake Total 5249 ml Output Total 5675 ml Balance -426 ml Height & Weight Height: 5'6.00" Weight: 246lbs. 7.0oz. 111.698382bs; 37.8 BMI Method:Stated General Appearance: WD/WN, Mild Distress (respiratory) HEENT: PERRL/EOMI, Pharynx Normal Neck: Non Tender, Supple Respiratory: Crackles, Decreased Breath Sounds, Expiration, Wheezing Cardiovascular: Regular Rate, Rhythm, No Murmur Capillary Refill: Less Than 3 Seconds Peripheral Pulses: 2+ Radial Pulses (R), 2+ Radial Pulses (L) Gastrointestinal: normal bowel sounds, non tender, soft, no organomegaly Extremity: Normal Range of Motion, Non Tender Neurologic/Psychiatric: Alert, No Motor/Sensory Deficits, Disoriented Skin: Normal Color, Warm/Dry Lymphatic: No Adenopathy Results Lab Laboratory Tests 06/18/18 04:00 06/19/18 03:36 Assessment/Plan Assessment/Plan Acute respiratory failure secondary to pneumonia r/o alveolar hemorrhage s/p bronchoscopy - - Eraxis -Add versed gtt -CXR with increased atelectasis SHERITA - probably mucous plugging -Will repeat bronchoscopy in AM -PT is on a heated circuit -I anticipate we will be weaning ventilator this week and expected extubation by mid to end of the week - 40mg of Lasix BID -KVO IVF -Tube feeds with pulmicare. -Await viramontes cultures -Hold Lovenox and plavix -Check ANCA, antiglomerular basement Ab. MAX is positive. Pt has hx of RA -Solumedrol 125mg IV Q 8 -Sedation: fentanyl Propofol Ativan ARDS - improving Pa02/Fi02 = 236 was 194 -PEEP to 8-- increase peep 10 COPDAE -DuoNeb Q4 UTI with Sepsis -Continue Abx therapy -Currently on Rocephin and azithromycin Combative with RN last night/Metabolic encephalopathy - multifactorial including sepsis and extensive sedating medications -CT head without contrast on admission is negative HX of depression -- I question if pt is BiPolar Acute renal failure -improved -present on admission HX of CVA and TPA in the past -CT on admission was negative DVT/GI PPX -Continue protonix QUINN VELÁZQUEZ DO Jun 19, 2018 06:34
[2018-06-19] MEDS ORDERED: SODIUM PHOSPHATE INJ 30 MM in NS (IVPB) 250 ML IV ONE (06:45)
[2018-06-19] MEDS: PANTOPRAZOLE 40 MG (PROTONIX) VIAL IV SCH (07:52)
--- NOTE | 2018-06-19 07:52 | Diagnostic Imaging Report ---
INDICATION: Dyspnea COMPARISON: 06/18/2018 FINDINGS: Single frontal radiographic view of the chest was obtained and demonstrates indwelling endotracheal tube with tip at the clavicular heads. Gastric tube tip terminates in stomach. Lungs continue to show low inspiratory volumes with diffuse infiltrates bilaterally. There does appear to be some improved aeration on the right. Small pleural effusions may be obscured. There is no evidence of pneumothorax. Cardiac silhouette does appear to be enlarged. Left upper extremity PICC line is noted. IMPRESSION: 1. Persistent diffuse bilateral infiltrates, but with likely some slight improved aeration on the right. 2. Lines and tubes as above. 3. Cardiomegaly. Dictated by: Dictated on workstation # [id number]
[2018-06-19] MEDS: FUROSEMIDE 40 MG/4 ML INJ (LASIX) IVP SCH ×2 (07:53→21:30)
[2018-06-19] MEDS: LEVOFLOXACIN 750 MG/150 ML IV 150 ML IV SCH (08:02)
[2018-06-19] MEDS: MIDAZOLAM INJECTION FOR DRIPS 50 MG in NS (IVPB) 90 ML IV SCH ×2 (08:06→18:48)
[2018-06-19] MEDS: amLODIPine 10 MG (NORVASC) TAB NG SCH (08:09)
[2018-06-19] MEDS: LORATADINE (CLARITIN) 10 MG TAB PO SCH (08:09)
[2018-06-19] MEDS: ARTIFICIAL TEARS OINT (LACRI-LUBE) 3.5 GM TUBE OU SCH ×3 (08:09→21:31)
[2018-06-19] MEDS: risperiDONE 0.25 MG (RisperDAL) TAB PO SCH ×2 (08:09→21:30)
[2018-06-19] MEDS: meTOprolol TARTRATE 25 MG (LOPRESSOR) TABLET PO SCH ×2 (08:09→21:30)
[2018-06-19] MEDS: DOCUSATE SODIUM 10 MG/ML 10 ML UDC (COLACE) PO SCH ×2 (08:15→21:30)
[2018-06-19] MEDS: POLYETHYLENE GLYCOL 17 GM (MIRALAX) PACK PO SCH ×2 (08:28→21:30)
[2018-06-19] MEDS: FLUTICASONE NASAL SPRAY (FLONASE) 16 GM BTL NS SCH (08:28)
[2018-06-19] MEDS: ANIDULAFUNGIN INJECTION 100 MG in NS (IVPB) 100 ML IV SCH (08:49)
--- NOTE | 2018-06-19 12:47 | Progress Note (SOAP) ---
Subjective Subjective/Events-last exam Afebrile, no acute events. Plan for repeat bronch tomorrow per Dr. Bautista. Review of Systems Date Seen by Provider: Jun 19, 2018 Time Seen by Provider: 11:24 Objective Exam Last Set of Vital Signs Vital Signs Date Time Temp Pulse Resp B/P (MAP) Pulse Ox O2 Delivery O2 Flow Rate FiO2 06/19/18 11:21 98.4 06/19/18 11:10 Mechanical Ventilator 35 06/19/18 11:00 65 13 156/60 (92) 92 35.00 Capillary Refill : Greater Than 3 SecondsLess Than 3 Seconds I&O Intake and Output 06/18/18 23:59 Intake Total 5187 ml Output Total 5525 ml Balance -338 ml Intake Oral 0 ml IV Total 2000 ml Tube Feeding 2343 ml Other 844 ml Output Urine Total 5525 ml General: Other (Intubated and sedated) Lungs: Other (ronchi) Heart: Regular Rate, No Murmurs Abdomen: Normal Bowel Sounds, Soft Results/Procedures Lab Laboratory Tests 06/18/18 17:37: Glucometer 207H 06/18/18 23:17: Glucometer 225H 06/19/18 03:36: White Blood Count 9.5, Red Blood Count 3.05L, Hemoglobin 9.6L, Hematocrit 28L, Mean Corpuscular Volume 92, Mean Corpuscular Hemoglobin 31, Mean Corpuscular Hemoglobin Concent 34, Red Cell Distribution Width 16.0H, Platelet Count 274, Mean Platelet Volume 9.1, Neutrophils (%) (Auto) 84H, Lymphocytes (%) (Auto) 8L , Monocytes (%) (Auto) 8, Eosinophils (%) (Auto) 0, Basophils (%) (Auto) 0, Neutrophils # (Auto) 8.0H, Lymphocytes # (Auto) 0.7L, Monocytes # (Auto) 0.8, Eosinophils # (Auto) 0.0, Basophils # (Auto) 0.0, Blood Gas Puncture Site LEFT RADIAL, Blood Gas Patient Temperature 98.6, Arterial Blood pH 7.45H, Arterial Blood Partial Pressure CO2 43, Arterial Blood Partial Pressure O2 63L, Arterial Blood HCO3 30H, Arterial Blood Total CO2 31.0, Arterial Blood Oxygen Saturation 92L, Arterial Blood Base Excess 5.7H, Tanner Test YES-POS, Blood Gas Ventilator Setting YES, Blood Gas Inspired Oxygen 30%, Sodium Level 133L, Potassium Level 4.0, Chloride Level 102, Carbon Dioxide Level 22, Anion Gap 9, Blood Urea Nitrogen 24H, Creatinine 0.65, Estimat Glomerular Filtration Rate > 60, BUN/ Creatinine Ratio 37, Glucose Level 165H, Calcium Level 7.0L, Phosphorus Level 2.2L, Magnesium Level 2.3, B-Type Natriuretic Peptide 416.4H, Triglycerides Level 1333H 06/19/18 11:08: Glucometer 188H Microbiology 06/12/18 Blood Culture - Final, Complete No growth 06/15/18 Mycobacterial Culture - Preliminary, Resulted See Comments 06/12/18 Urine Culture - Final, Complete Enterococcus faecalis Radiology Date of Exam: 06/12/18 CT HEAD WO-R/O STROKE EXAM: CT HEAD WO-R/O STROKE INDICATION: Leg weakness. Altered mental status. Slurred speech. COMPARISON: CT head without contrast from 08/24/2017. FINDINGS: No intracranial hemorrhage, mass effect, hydrocephalus, or extra-axial fluid collections. No CT evidence of acute infarction. Osseous structures are intact. The visualized paranasal sinuses and mastoids are unremarkable. IMPRESSION: No acute intracranial CT findings. Date of Exam: 06/12/18 CHEST 1 VIEW, AP/PA ONLY INDICATION: Wheezing. EXAMINATION: Portable erect AP chest at 4:42 p.m. FINDINGS: The heart is enlarged and has increased in size since the prior exam of 04/17/2018. Furthermore, in the interval since the prior study, alveolar/interstitial pulmonary infiltrates have developed in the right suprahilar region, the left upper lung and the left midlung. These findings could be secondary to pulmonary edema, pneumonia/atelectasis or a combination of all three. The periphery of the right lung is generally clear and there is no significant pleural effusion in either lung base. The mediastinum is not widened. The osseous structures are intact. There is a loop recorder device again noted overlying the left thorax. IMPRESSION: The appearance of the chest has worsened since the prior study as the heart has increased in size and alveolar/interstitial pulmonary infiltrates have developed, bilaterally, particularly on the left. These abnormal parenchymal densities may be related to pulmonary edema, pneumonia, atelectasis or a combination of all three. A followup exam would be recommended for continued evaluation. Date of Exam: 06/13/18 CHEST 1 VIEW, AP/PA ONLY INDICATION: Followup of infiltrates with shortness of breath. FINDINGS: Bilateral dense infiltrates noted in the upper lobes bilaterally. Moderate perihilar infiltrate noted in the left lower lobe as well. Right lower lung appears clear. The heart is mildly enlarged and has increased in size since 04/17/2018. No evidence of pleural effusion. No pneumothorax. IMPRESSION: 1. Increasing cardiac size. 2. Bilateral infiltrates present increasing in density since previous exam. These could represent inflammatory infiltrates or increasing pulmonary edema. Assessment/Plan Assessment/Plan (1) Severe sepsis Status: Acute Assessment & Plan: 06/13 -secondary to multi-lobar PNA -hypotension, improved after fluid bolus; febrile to 101.5, tachycardia and tachypnea -hydrocortisone 100 mg IV in ED, will start on prednisone (pt with solumedrol allergy)-CRP >15 06/14 -CXR again shows multi-lobar PNA -Day 3 Rocephin, Azithromycin -sputum culture + yeast, + e coli -urine cx + enterococcus -sensitivities indicate both sensitive to Levaquin, will change to 750 Levaquin daily, add Diflucan for yeast 06/15 -worsening CXR, concern for ARDS -Azithromycin, Levaquin -stop Diflucan, change to Eraxis -stop prednisone, change to Solu-Medrol 125 mg Q8H - pt allergy is burning skin and eye irritation, at this point it is felt that the potential benefit outweighs the risks; will monitor closely for signs of allergic rxn to medication -bronch this AM -blood cx with no growth to date - attempted to contact family; message left for daughter Kaycee that pt is critically ill and her overall prognosis is guarded at best; the next 48 hours will be critical 06/16 -no improvement in CXR -Eraxis, Azithromycin, Levaquin -Solu-medrol 125 mg Q8H; pt with no sign of intolerance or allergic reaction -blood cx with no growth to date -Day 4 abx 06/17 -some improvement in CXR from previous -Eraxis, Levaquin -Day 5 abx -Solu- medrol 125 mg Q8H Day 3 - no signs of intolerance or allergy -blood cx no growth to date 06/18- management per Dr. Bautista, no change in antimicrobials or clinical status 06/19- continue Eraxis, levofloxacin and solumedrol (2) ARDS (adult respiratory distress syndrome) Status: Acute Assessment & Plan: 06/17 -Vent Day 4 -Solu-Medrol 125 mg Q8H - Day 3 -some improvement in CXR this AM 06/18- stable with minimal improvement, working on weaning sedation 06/[address] Bautista, anticipating weaning later this week (3) Multilobar lung infiltrate Status: Acute Assessment & Plan: See severe sepsis and ARDS plan (4) Acute respiratory failure with hypoxia Status: Acute Assessment & Plan: 06/15 -patient now on ventilator day 2, FiO2 at 50% -requiring a significant amount of sedation to tolerate vent, currently on both precedex and propofol -ABG this AM pH 7.33, pCO2 46, pO2 158 -worsening CXR, concerning for ARDS 06/16 -Vent Day 3, FiO2 35% -pt requiring large amounts of sedation and still tolerating turning and suctioning very poorly -given 5mg morphine prior to turning and suctioning with less severe hypotension ; pt was previously having systolic pressure drops into the 70s, when morphine given first patient did drop systolic pressure into the upper 80's but very briefly then returned to baseline -will order 5 mg morphine Q1H PRN turning and suctioning, with the hope that patient can wean down on some of her other high dose sedation, currently on propofol, precedex and fentanyl; fentanyl bolus prior to cares did not seem to help, patient did much better with morphine bolus 06/17 -Vent Day 4 -FiO2 30% -continues to have copious secretions, but tolerating suctioning better with morphine prior -precedex off this AM, propofol and fentanyl gtt 06/18- continues on FiO2 30% and with excessive secretions and agitation requiring Precedex, propofol and fentanyl 06/19 FiO2 increased to 35% this am (5) Hyperglycemia, drug-induced Status: Acute Assessment & Plan: 06/17 -HgbA1C checked on admission, <6.5 and patient without existing diagnosis of diabetes -elevated glucose secondary to high dose steroids -glucose over last 24 hours 166 - 141 - 158 - 172 - 181 -Pulmacort started today -NovoLog sliding scale B Q6 hours (6) Hypertension Status: Chronic Assessment & Plan: 06/17 -patient on home dose of lopressor 50 mg BID, HR is 60 -over last ~24 hours patient with elevated blood pressures -add 10 mg amlodipine per NG, as suspect HR will not tolerate increased beta danuta dose Qualifiers: Qualified Codes: I10 - Essential (primary) hypertension (7) Acute renal injury due to sepsis Status: Resolved (8) Rheumatoid arthritis Status: Chronic Assessment & Plan: 06/13 -pt on Xeljanz 5 mg BID - hold for now 06/15 -continue to hold Xeljanz -extensive review of pt's chart, both hospital and clinic show that 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 Ohara at [facility] per progress notes in clinic system, pt's RA has been considered in remission since before 05/15/15, as that note reports it as "still in remission" -first diagnosed in 2005, at one point patient was on methotrexate and Yamilka 06/17 -MAX positive, 1:640, homogenous -anti-yarelis antibody positive -SS-A Ro antibody positive, La antibody negative Qualifiers: Qualified Codes: M06.9 - Rheumatoid arthritis, unspecified (9) Elevated LFTs Status: Resolved (10) Hemoptysis Status: Acute Assessment & Plan: 06/13 -called by nursing staff last night that patient was coughing up thick bloody sputum -pt with RA and on Xeljanz -will check Quanterferon Gold for TB and send sputum for culture -place in isolation in negative pressure room until TB ruled out, although chances are low -pt states she had TB test before starting Xeljanz that was negative 06/14 -results of TB testing pending, pt to remain in isolation until result obtained 06/15 -preliminary results returned last night - negative for TB; pt taken out of TB isolation -bronch this AM by Dr. Bautista shows large amount of old bloody sputum but no active bleeding -consider pulmonary hemorrhage; will hold plavix and lovenox 06/16 -continues to have blood tinged, copious secretions 06/18 mycobacterial culture remains negative (11) Anemia Assessment & Plan: Stable Qualifiers: Qualified Codes: D64.9 - Anemia, unspecified (12) Cardiomegaly Status: Acute Assessment & Plan: 06/13 -CXR from yesterday and this AM both note significant enlargement from previous CXR on 04/17/18 -will check echo in AM 06/14 -CXR shows stable cardiomegaly -echo pending 06/15 -echo shows hyperdynamic LV, with EF 80-85%, Grade 2 Diastolic Dysfunction, tricuspid valve with mild to moderate regurgitation and pulmonary artery pressure estimated to be 50-55 mmHg (13) Grade II diastolic dysfunction Assessment & Plan: -new from pt's previous echo 08/24/2017, which made no mention of diastolic dysfunction (14) Tricuspid regurgitation Status: Chronic Qualifiers: Qualified Codes: I36.1 - Nonrheumatic tricuspid (valve) insufficiency (15) Pulmonary hypertension Status: Acute Assessment & Plan: 06/15 -pulmonary artery systolic pressure estimated 50-55 mmHg -previous 25 mmHg (Aug 2017), 20 mmHg (January 2017), 30 mmHg (2011) (16) Sleep apnea Status: Chronic Assessment & Plan: -pt has CPAP at home but reported to nursing staff that she does not wear it -encourage compliance with CPAP use after discharge Qualifiers: Qualified Codes: G47.33 - Obstructive sleep apnea (adult) (pediatric) (17) Coronary artery disease Status: Chronic Qualifiers: Qualified Codes: I25.10 - Atherosclerotic heart disease of [place] coronary artery without angina pectoris (18) Anxiety Status: Chronic (19) Bacteria in urine Status: Acute Assessment & Plan: 06/13 -large bacteria on UA -urine cx pending -pt on rocephin for PNA which should provide adequate coverage until cx results available 06/14 -enterococcus per cx -change rocephin to levaquin based on sensitivities 06/15 -urine cx + enterococcus -levaquin 750 mg Q24h -abx day 3 06/16 -day 4 abx 06/17 -day 5 abx 06/18 day 6 abx 06/19 day 7 abx, urine should be fully treated. (20) Chronic pain Status: Chronic Assessment & Plan: 06/15 -pt normally on tramadol and gabapentin for chronic pain -will place on fentanyl gtt, as she is requiring large amounts of precedex and propofol and it could potential be secondary to some of her chronic pain 06/17 -fentanyl gtt, morphine PRN Qualifiers: Qualified Codes: G89.29 - Other chronic pain (21) Tobacco abuse Status: Chronic (22) Weakness Status: Acute (23) Elevated d-dimer Status: Acute Assessment & Plan: 06/14 -2.11 on admission --> 2.95 -CTA pending -doppler of LE shows no evidence of DVT 06/15 -CTA showed no evidence of PE (24) History of stroke Status: Chronic (25) DVT prophylaxis Status: Acute Assessment & Plan: 40 mg Lovenox SQ daily 06/15 -chemoprophylaxis on hold due to concern for pulmonary hemorrhage; SCDS in place (26) Obesity (BMI 30-39.9) Status: Chronic (27) Hyponatremia Status: Resolved Clinical Quality Measures DVT/VTE Risk/Contraindication: VTE Present on Admission: No Risk Factor Score Per Nursin RFS Level Per Nursing on Admit: 4+=Very High Contraindications-Pharm: Other *list below* Other: bronch this AM shows significant amount of bloody sputum, concern for pulmonary hemorrhage; holding all blood thinners; pt has SCDs on. Pneumonia: Pseudomonal Risk: COPD GLENN PEREZ MD Jun 19, 2018 12:47 pm
[2018-06-19] MEDS: LACTATED RINGERS 1,000 ML IV SCH ×2 (20:05→21:30)
[2018-06-19] MEDS: ATORVASTATIN 20 MG (LIPITOR) TABLET PO SCH (21:30)
[2018-06-20] VITALS (34 sets, daily range): BP systolic 103–188; BP diastolic 57–87
[2018-06-20] MEDS: fentaNYL INJECTION 1,250 MCG in NS (IVPB) 250 ML IV SCH ×2 (00:33→08:16)
[2018-06-20] MEDS: morphine INJ 10 MG/ML 1ML (SYR OR VIAL) IVP PRN ×3 (00:43→17:46)
[2018-06-20] MEDS: RT-ALBUTEROL/IPRATROPIUM 3 ML (DUONEB) VIAL INH SCH ×6 (01:29→22:26)
[2018-06-20] MEDS: MAGNESIUM 1 GM/100 ML IVPB 100 ML IV SCH (02:04)
[2018-06-20] MEDS: POTASSIUM CL 10MEQ/50ML IVPB 50 ML IV SCH (02:04)
[2018-06-20] MEDS: CATHETER FLUSH 10 ML SYR IV SCH ×3 (02:04→20:15)
[2018-06-20] MEDS: KCL 20 MEQ TAB (K-DUR) PO SCH (02:05)
[2018-06-20] MEDS ORDERED: MIDAZOLAM FOR DRIPS 10 MG/2 ML VIAL ONE (03:23)
[2018-06-20] MEDS ORDERED: NS (IVPB) 100 ML ONE (03:23)
[2018-06-20] MEDS: MIDAZOLAM INJECTION FOR DRIPS 50 MG in NS (IVPB) 90 ML IV SCH (03:31)
[2018-06-20 04:51] LABS: BASOPHILS % (AUTO) 0 % (0-10); EOSINOPHILS % (AUTO) 0 % (0-10); HEMATOCRIT 33 % (35-52); LYMPHOCYTES # (AUTO) 0.7 X 10^3 (1.0-4.0); LYMPHOCYTES % (AUTO) 7 % (12-44); MEAN CORPUSCULAR HEMOGLOBIN 30 PG (25-34); MEAN CORPUSCULAR HGB CONC 33 G/DL (32-36); MEAN CORPUSCULAR VOLUME 90 FL (80-99); MEAN PLATELET VOLUME 8.5 FL (7.4-10.4); MONOCYTES # (AUTO) 0.5 X 10^3 (0.0-1.0); MONOCYTES % (AUTO) 6 % (0-12); NEUTROPHILS % (AUTO) 87 % (42-75); PLATELET COUNT 281 10^3/uL (130-400); RED BLOOD COUNT 3.68 10^6/uL (4.35-5.85); RED CELL DISTRIBUTION WIDTH 15.8 % (10.0-14.5); WHITE BLOOD COUNT 9.2 10^3/uL (4.3-11.0)
[2018-06-20 04:52] LABS: ABG OXYGEN SATURATION 97 % (94-100); ABG PCO2 41 MMHG (35-45); ABG PH 7.47 (7.37-7.43); ABG PO2 79 MMHG (79-93); ABG TCO2 31.4 MMOL/L (21.0-31.0)
[2018-06-20 04:55] LABS: ALLENS TEST ART LINE; INSPIRED O2 35%; PATIENT TEMP 96.1; VENTILATOR YES
[2018-06-20] MEDS: DEXMEDETOMIDINE INJECTION 1,000 MCG in NS (IVPB) 240 ML IV SCH ×5 (04:55→20:55)
[2018-06-20 05:07] LABS: BUN/CREATININE RATIO 38; CALCIUM 8.2 MG/DL (8.5-10.1); CARBON DIOXIDE 28 MMOL/L (21-32); CHLORIDE 100 MMOL/L (98-107); CREATININE SERUM 0.73 MG/DL (0.60-1.30); GFR ESTIMATED > 60; GLUCOSE 182 MG/DL (70-105); MAGNESIUM 2.4 MG/DL (1.8-2.4); PHOSPHORUS 4.1 MG/DL (2.3-4.7); POTASSIUM 4.2 MMOL/L (3.6-5.0); SODIUM 136 MMOL/L (135-145); TRIGLYCERIDES 130 MG/DL (<150)
--- NOTE | 2018-06-20 05:29 | Pulmonary Progress Note ---
Subjective Time Seen by Provider: 05:30 Subjective/Events-last exam No complications noted. Sepsis Event Evaluation Height, Weight, BMI Height: 5'6.00" Weight: 246lbs. 7.0oz. 111.369842zq; 37.8 BMI Method:Stated Exam Exam Vital Signs Date Time Temp Pulse Resp B/P (MAP) Pulse Ox O2 Delivery O2 Flow Rate FiO2 06/20/18 04:56 96.1 06/20/18 04:00 96 Mechanical Ventilator 35 06/20/18 04:00 56 19 135/57 (83) 100 Mechanical Ventilator 35.00 06/20/18 03:55 60 20 98 35 06/20/18 03:31 96.6 62 19 139/58 99 Mechanical Ventilator 35.00 06/20/18 03:31 96.6 62 19 139/58 99 Mechanical Ventilator 35.00 06/20/18 03:00 68 20 165/68 (100) 99 Mechanical Ventilator 35.00 06/20/18 02:00 62 19 139/58 (85) 99 Mechanical Ventilator 35.00 06/20/18 01:30 59 20 99 35 06/20/18 01:00 60 06/20/18 01:00 60 19 143/63 (89) 99 Mechanical Ventilator 35.00 06/20/18 00:00 57 19 143/64 (90) 99 Mechanical Ventilator 35.00 06/20/18 00:00 97 Mechanical Ventilator 35 06/19/18 23:59 96.6 06/19/18 23:39 58 20 98 35 06/19/18 23:00 59 20 126/60 (82) 99 Mechanical Ventilator 35.00 06/19/18 22:00 56 19 128/57 (80) 100 Mechanical Ventilator 35.00 06/19/18 21:00 50 20 100 35 06/19/18 21:00 49 20 144/63 (90) 100 Mechanical Ventilator 35.00 06/19/18 20:00 96 Mechanical Ventilator 35 06/19/18 20:00 54 19 138/59 (85) 99 Mechanical Ventilator 35.00 06/19/18 19:30 96.9 54 20 138/59 (85) 99 Mechanical Ventilator 35.00 06/19/18 19:00 56 06/19/18 19:00 56 20 136/58 (84) 99 Mechanical Ventilator 35.00 06/19/18 18:48 132/57 9/9/18 18:28 52 20 99 35 06/19/18 18:00 52 20 151/65 (93) 99 Mechanical Ventilator 35.00 06/19/18 17:58 150/64 06/19/18 17:00 51 19 143/63 (89) 94 Mechanical Ventilator 35.00 06/19/18 16:14 97.4 06/19/18 16:00 60 20 161/67 (98) 92 Mechanical Ventilator 35.00 06/19/18 15:30 93 Mechanical Ventilator 35 06/19/18 15:00 56 20 126/61 (82) 93 Mechanical Ventilator 35.00 06/19/18 14:21 53 20 93 35 06/19/18 14:00 54 20 142/60 (87) 95 Mechanical Ventilator 35.00 06/19/18 13:26 55 149/61 06/19/18 13:00 54 06/19/18 13:00 54 20 146/60 (88) 95 Mechanical Ventilator 35.00 06/19/18 12:00 55 20 149/63 (91) 95 Mechanical Ventilator 35.00 06/19/18 11:21 98.4 06/19/18 11:10 Mechanical Ventilator 35 06/19/18 11:00 65 13 156/60 (92) 92 Mechanical Ventilator 35.00 06/19/18 10:15 56 22 95 35 06/19/18 10:00 58 19 165/66 (99) 97 Mechanical Ventilator 35.00 06/19/18 09:08 56 20 90 35 06/19/18 09:00 56 20 175/72 (106) 90 Mechanical Ventilator 35.00 06/19/18 08:57 175/71 06/19/18 08:40 Mechanical Ventilator 35 06/19/18 08:10 97.6 58 20 165/66 (99) 93 Mechanical Ventilator 35.00 06/19/18 08:06 173/70 06/19/18 08:00 68 30 178/75 (109) 82 Mechanical Ventilator 35.00 06/19/18 07:00 56 06/19/18 07:00 56 20 167/67 (100) 91 Mechanical Ventilator 35.00 06/19/18 06:39 54 20 91 35 06/19/18 06:00 57 9 32/66 (55) 91 Mechanical Ventilator 35.00 06/19/18 05:46 35 06/19/18 05:32 64 9 167/69 (101) 90 Mechanical Ventilator 35.00 I & O 06/20/18 07:00 Intake Total 1855 ml Output Total 6425 ml Balance -4570 ml Height & Weight Height: 5'6.00" Weight: 246lbs. 7.0oz. 111.856833jz; 37.8 BMI Method:Stated General Appearance: WD/WN, Mild Distress HEENT: PERRL/EOMI, Pharynx Normal Neck: Non Tender, Supple Respiratory: Crackles, Decreased Breath Sounds, Expiration, Wheezing Cardiovascular: Regular Rate, Rhythm, No Murmur Capillary Refill: Less Than 3 Seconds Peripheral Pulses: 2+ Radial Pulses (R), 2+ Radial Pulses (L) Gastrointestinal: normal bowel sounds, non tender, soft, no organomegaly Extremity: Normal Range of Motion, Non Tender Neurologic/Psychiatric: No Motor/Sensory Deficits, Other (sedated on vent ) Skin: Normal Color, Warm/Dry Lymphatic: No Adenopathy Results Lab Laboratory Tests 06/19/18 03:36 06/20/18 04:30 Assessment/Plan Assessment/Plan Acute respiratory failure secondary to pneumonia r/o alveolar hemorrhage s/p bronchoscopy - - Eraxis -versed gtt -Will do bronchoscopy this AM then start weaning sedation. -Start weaning sedation/vent today starting with d/cing versed gtt -Currently sedation includes, propofol, versed gtt, fentanyl gtt, Precedex , rispiradol, and PRN Haldol -Decrease peep to 5 - 40mg of Lasix BID -KVO IVF -Tube feeds with pulmicare. - HOLD for weaning -Await viramontes cultures -Hold Lovenox and plavix -Check ANCA, antiglomerular basement Ab. MAX is positive. Pt has hx of RA -Solumedrol 125mg IV Q 8-- decrease to 40mg -Sedation: fentanyl Propofol Ativan ARDS - improving COPDAE -DuoNeb Q4 UTI with Sepsis -Continue Abx therapy -Currently on Rocephin and azithromycin Metabolic encephalopathy -Risperdol added over the weededn HX of depression -- I question if pt is BiPolar Acute renal failure -improved -present on admission HX of CVA and TPA in the past -CT on admission was negative DVT/GI PPX -Continue protonix QUINN VELÁZQUEZ DO Jun 20, 2018 05:29
[2018-06-20] MEDS ORDERED: HALOPERIDOL 5 MG/ML (HALDOL) AMP IV PRN (05:30)
[2018-06-20] MEDS: inSUlin ASPART (NovoLOG) 1 UNIT/0.01 ML (CHARGE PER UNIT) SC SCH ×4 (05:45→17:50)
[2018-06-20] MEDS ORDERED: methylPREDNISolone 125 MG (Solu-MEDROL) VIAL IV SCH (06:00)
--- NOTE | 2018-06-20 06:28 | Pulmonary Procedures ---
Pulmonary Procedures Date of Procedure Date of Service: Jun 20, 2018 Bronch Bronchoscopy with bronchoalveolar lavage (BAL). Preop DX Atelectasis, mucous plugging Postop DX: large mucous plugging SHERITA noted. All sputum lavaged and suctioned. No signs of pulmonary hemorrhage Complications: none After informed consent obtained and formal time out pt was sedated using Fentanyl and Versed. Bronchoscope was advanced through the nare and vocal cords. 1% lidocaine was used to anesthetize vocal cords, epiglottis, phu, and left/right main stem bronchus. An anatomical tour was undertaken down to the segmental bronchi bilaterally. No endobronchial lesions noted. large mucous plugging SHERITA noted. All sputum lavaged and suctioned. No signs of pulmonary hemorrhage Pt tolerated procedure well. No complications noted. Stat CXR is pending. QUINN VELÁZQUEZ DO Jun 20, 2018 06:28
[2018-06-20] MEDS ORDERED: LIDOCAINE PF 1% 2 ML AMP INJ ONE (06:30)
--- NOTE | 2018-06-20 07:27 | Diagnostic Imaging Report ---
CLINICAL INDICATION: Patient with dyspnea. EXAM: Portable chest x-ray upright view. COMPARISON: Portable chest x-ray semiupright view dated 06/19/2018. FINDINGS: ET tube is again seen with tip at the T3 vertebral body level in good position. Orogastric feeding tube seen with its distal portion overlying the expected region of the gastric body. There is slight improved aeration of both lung bases. There is persistent small to moderate amount of consolidation involving the left lung base. There is minimal right lung base atelectasis versus infiltrate remaining. Pulmonary vasculature is mildly prominent centrally. Cardiac silhouette is upper limits of normal. Loop recorder is again seen overlying left chest. IMPRESSION: 1: There is slight improved aeration of both lungs with persistent bibasilar atelectasis and/or infiltrates (left side more than the right). 2: Lines and tubes are in good position. 3: The remainder of this exam shows no significant interval change compared to the prior study of comparison. Dictated by: Dictated on workstation # [id number]
--- NOTE | 2018-06-20 08:17 | Diagnostic Imaging Report ---
Clinical indication: Patient with ARDS. Exam: Portable chest x-ray semiupright view. Comparison: Portable chest x-ray dated 02/17/2018. Findings: Again seen ET tube and orogastric feeding tube in good position and is not significantly changed. There is slight increase left basilar patchy consolidation and slight increased minimal right lung base airspace opacity. There is no pneumothorax. A left pleural effusion cannot be completely excluded. Left PICC line again seen with tip in the superior vena cava. Pulmonary vasculature and cardiac silhouette within normal limits. Loop recorder is again seen. The remainder of this exam shows no significant interval change compared to the prior study of comparison. Impression: 1: There is slight increase bibasilar atelectasis versus infiltrate (left side more than the right). Possible small left pleural effusion. 2: The remainder of this exam shows no significant interval change compared to the prior study of comparison. Dictated by: Dictated on workstation # [id number]
[2018-06-20] MEDS: FLUTICASONE NASAL SPRAY (FLONASE) 16 GM BTL NS SCH (08:19)
[2018-06-20] MEDS: ARTIFICIAL TEARS OINT (LACRI-LUBE) 3.5 GM TUBE OU SCH ×3 (08:19→20:15)
[2018-06-20] MEDS: DOCUSATE SODIUM 10 MG/ML 10 ML UDC (COLACE) PO SCH ×2 (08:19→20:14)
[2018-06-20] MEDS: LEVOFLOXACIN 750 MG/150 ML IV 150 ML IV SCH (08:19)
[2018-06-20] MEDS: POLYETHYLENE GLYCOL 17 GM (MIRALAX) PACK PO SCH ×2 (08:19→20:14)
[2018-06-20] MEDS: amLODIPine 10 MG (NORVASC) TAB NG SCH (08:20)
[2018-06-20] MEDS: FUROSEMIDE 40 MG/4 ML INJ (LASIX) IVP SCH ×2 (08:20→20:14)
[2018-06-20] MEDS: LORATADINE (CLARITIN) 10 MG TAB PO SCH (08:20)
[2018-06-20] MEDS: risperiDONE 1 MG (RisperDAL) TAB PO SCH ×2 (08:20→20:14)
[2018-06-20] MEDS: meTOprolol TARTRATE 25 MG (LOPRESSOR) TABLET PO SCH ×2 (08:20→20:14)
[2018-06-20] MEDS: PANTOPRAZOLE 40 MG (PROTONIX) VIAL IV SCH (08:20)
[2018-06-20] MEDS: ANIDULAFUNGIN INJECTION 100 MG in NS (IVPB) 100 ML IV SCH (08:33)
[2018-06-20] MEDS: methylPREDNISolone 40 MG/ML (Solu-MEDROL) VIAL IV SCH ×2 (13:52→20:15)
--- NOTE | 2018-06-20 14:18 | Progress Note (SOAP) ---
Subjective Subjective/Events-last exam Afebrile. Had repeat bronchoscopy this am. Review of Systems Date Seen by Provider: Jun 20, 2018 Time Seen by Provider: 10:40 Objective Exam Last Set of Vital Signs Vital Signs Date Time Temp Pulse Resp B/P (MAP) Pulse Ox O2 Delivery O2 Flow Rate FiO2 06/20/18 13:53 98 20 97 30 06/20/18 13:00 136/71 (92) Mechanical Ventilator 40.00 06/20/18 12:00 99.1 Capillary Refill : Greater Than 3 SecondsLess Than 3 Seconds I&O Intake and Output 06/20/18 00:00 Intake Total 4688 ml Output Total 6625 ml Balance -1937 ml Intake Oral 0 ml IV Total 3695 ml Tube Feeding 353 ml Other 640 ml Output Urine Total 6625 ml # Bowel Movements 1 General: Other (intubated, sedated) Lungs: Clear to Auscultation Heart: Regular Rate, No Murmurs Abdomen: Normal Bowel Sounds, Soft Extremities: Other (trace edema) Results/Procedures Lab Laboratory Tests 06/19/18 17:07: Glucometer 159H 06/19/18 23:56: Glucometer 177H 06/20/18 04:30: White Blood Count 9.2, Red Blood Count 3.68L, Hemoglobin 11.0L, Hematocrit 33L, Mean Corpuscular Volume 90, Mean Corpuscular Hemoglobin 30, Mean Corpuscular Hemoglobin Concent 33, Red Cell Distribution Width 15.8H, Platelet Count 281, Mean Platelet Volume 8.5, Neutrophils (%) (Auto) 87H, Lymphocytes (%) (Auto) 7L , Monocytes (%) (Auto) 6, Eosinophils (%) (Auto) 0, Basophils (%) (Auto) 0, Neutrophils # (Auto) 8.0H, Lymphocytes # (Auto) 0.7L, Monocytes # (Auto) 0.5, Eosinophils # (Auto) 0.0, Basophils # (Auto) 0.0, Blood Gas Puncture Site RIGHT ARTLINE, Blood Gas Patient Temperature 96.1, Arterial Blood pH 7.47H, Arterial Blood Partial Pressure CO2 41, Arterial Blood Partial Pressure O2 79, Arterial Blood HCO3 30H, Arterial Blood Total CO2 31.4H, Arterial Blood Oxygen Saturation 97, Arterial Blood Base Excess 6.0H, Tanner Test ART LINE, Blood Gas Ventilator Setting YES, Blood Gas Inspired Oxygen 35%, Sodium Level 136, Potassium Level 4.2, Chloride Level 100, Carbon Dioxide Level 28, Anion Gap 8, Blood Urea Nitrogen 28H, Creatinine 0.73, Estimat Glomerular Filtration Rate > 60, BUN/Creatinine Ratio 38, Glucose Level 182H, Calcium Level 8.2L, Phosphorus Level 4.1, Magnesium Level 2.4, Triglycerides Level 130 06/20/18 11:17: Glucometer 191H Microbiology 06/12/18 Blood Culture - Final, Complete No growth 06/15/18 Mycobacterial Culture - Preliminary, Resulted See Comments 06/12/18 Urine Culture - Final, Complete Enterococcus faecalis Radiology Date of Exam: 06/12/18 CT HEAD WO-R/O STROKE EXAM: CT HEAD WO-R/O STROKE INDICATION: Leg weakness. Altered mental status. Slurred speech. COMPARISON: CT head without contrast from 08/24/2017. FINDINGS: No intracranial hemorrhage, mass effect, hydrocephalus, or extra-axial fluid collections. No CT evidence of acute infarction. Osseous structures are intact. The visualized paranasal sinuses and mastoids are unremarkable. IMPRESSION: No acute intracranial CT findings. Date of Exam: 06/12/18 CHEST 1 VIEW, AP/PA ONLY INDICATION: Wheezing. EXAMINATION: Portable erect AP chest at 4:42 p.m. FINDINGS: The heart is enlarged and has increased in size since the prior exam of 04/17/2018. Furthermore, in the interval since the prior study, alveolar/interstitial pulmonary infiltrates have developed in the right suprahilar region, the left upper lung and the left midlung. These findings could be secondary to pulmonary edema, pneumonia/atelectasis or a combination of all three. The periphery of the right lung is generally clear and there is no significant pleural effusion in either lung base. The mediastinum is not widened. The osseous structures are intact. There is a loop recorder device again noted overlying the left thorax. IMPRESSION: The appearance of the chest has worsened since the prior study as the heart has increased in size and alveolar/interstitial pulmonary infiltrates have developed, bilaterally, particularly on the left. These abnormal parenchymal densities may be related to pulmonary edema, pneumonia, atelectasis or a combination of all three. A followup exam would be recommended for continued evaluation. Date of Exam: 06/13/18 CHEST 1 VIEW, AP/PA ONLY INDICATION: Followup of infiltrates with shortness of breath. FINDINGS: Bilateral dense infiltrates noted in the upper lobes bilaterally. Moderate perihilar infiltrate noted in the left lower lobe as well. Right lower lung appears clear. The heart is mildly enlarged and has increased in size since 04/17/2018. No evidence of pleural effusion. No pneumothorax. IMPRESSION: 1. Increasing cardiac size. 2. Bilateral infiltrates present increasing in density since previous exam. These could represent inflammatory infiltrates or increasing pulmonary edema. Assessment/Plan Assessment/Plan (1) Severe sepsis Status: Acute Assessment & Plan: 06/13 -secondary to multi-lobar PNA -hypotension, improved after fluid bolus; febrile to 101.5, tachycardia and tachypnea -hydrocortisone 100 mg IV in ED, will start on prednisone (pt with solumedrol allergy)-CRP >15 06/14 -CXR again shows multi-lobar PNA -Day 3 Rocephin, Azithromycin -sputum culture + yeast, + e coli -urine cx + enterococcus -sensitivities indicate both sensitive to Levaquin, will change to 750 Levaquin daily, add Diflucan for yeast 06/15 -worsening CXR, concern for ARDS -Azithromycin, Levaquin -stop Diflucan, change to Eraxis -stop prednisone, change to Solu-Medrol 125 mg Q8H - pt allergy is burning skin and eye irritation, at this point it is felt that the potential benefit outweighs the risks; will monitor closely for signs of allergic rxn to medication -bronch this AM -blood cx with no growth to date - attempted to contact family; message left for daughter Kaycee that pt is critically ill and her overall prognosis is guarded at best; the next 48 hours will be critical 06/16 -no improvement in CXR -Eraxis, Azithromycin, Levaquin -Solu-medrol 125 mg Q8H; pt with no sign of intolerance or allergic reaction -blood cx with no growth to date -Day 4 abx 06/17 -some improvement in CXR from previous -Eraxis, Levaquin -Day 5 abx -Solu- medrol 125 mg Q8H Day 3 - no signs of intolerance or allergy -blood cx no growth to date 06/18- management per Dr. Bautista, no change in antimicrobials or clinical status 06/19- continue Eraxis, levofloxacin and solumedrol 06/[address] Bautista (2) ARDS (adult respiratory distress syndrome) Status: Acute Assessment & Plan: 06/17 -Vent Day 4 -Solu-Medrol 125 mg Q8H - Day 3 -some improvement in CXR this AM 06/18- stable with minimal improvement, working on weaning sedation 06/[address] Bautista, anticipating weaning later this week 06/20 trying to wean sedation today (3) Multilobar lung infiltrate Status: Acute Assessment & Plan: See severe sepsis and ARDS plan (4) Acute respiratory failure with hypoxia Status: Acute Assessment & Plan: 06/15 -patient now on ventilator day 2, FiO2 at 50% -requiring a significant amount of sedation to tolerate vent, currently on both precedex and propofol -ABG this AM pH 7.33, pCO2 46, pO2 158 -worsening CXR, concerning for ARDS 06/16 -Vent Day 3, FiO2 35% -pt requiring large amounts of sedation and still tolerating turning and suctioning very poorly -given 5mg morphine prior to turning and suctioning with less severe hypotension ; pt was previously having systolic pressure drops into the 70s, when morphine given first patient did drop systolic pressure into the upper 80's but very briefly then returned to baseline -will order 5 mg morphine Q1H PRN turning and suctioning, with the hope that patient can wean down on some of her other high dose sedation, currently on propofol, precedex and fentanyl; fentanyl bolus prior to cares did not seem to help, patient did much better with morphine bolus 06/17 -continues to have copious secretions, but tolerating suctioning better with morphine prior -precedex off this AM, propofol and fentanyl gtt 06/18- continues on FiO2 30% and with excessive secretions and agitation requiring Precedex, propofol and fentanyl 06/19 FiO2 increased to 35% this am 06/20- working on beginning of weaning per Dr. Bautista (5) Hyperglycemia, drug-induced Status: Acute Assessment & Plan: 06/17 -HgbA1C checked on admission, <6.5 and patient without existing diagnosis of diabetes -elevated glucose secondary to high dose steroids -glucose over last 24 hours 166 - 141 - 158 - 172 - 181 -Pulmacort started today -NovoLog sliding scale B Q6 hours (6) Hypertension Status: Chronic Assessment & Plan: 06/17 -patient on home dose of lopressor 50 mg BID, HR is 60 -over last ~24 hours patient with elevated blood pressures -add 10 mg amlodipine per NG, as suspect HR will not tolerate increased beta danuta dose 06/19- BP rising, on metoprolol 25 mg BID and amlodipin 10 mg daily, will increase metoprolol to 50 mg BID. HR in 80s today. Qualifiers: Qualified Codes: I10 - Essential (primary) hypertension (7) Acute renal injury due to sepsis Status: Resolved (8) Rheumatoid arthritis Status: Chronic Assessment & Plan: 06/13 -pt on Xeljanz 5 mg BID - hold for now 06/15 -continue to hold Xeljanz -extensive review of pt's chart, both hospital and clinic show that pt's current Core Maker is Dr. Ohara at [facility]; per progress notes in clinic system, pt's RA has been considered in remission since before 05/15/15, as that note reports it as "still in remission" -first diagnosed in 2005, at one point patient was on methotrexate and Yamilka 06/17 -MAX positive, 1:640, homogenous -anti-yarelis antibody positive -SS-A Ro antibody positive, La antibody negative Qualifiers: Qualified Codes: M06.9 - Rheumatoid arthritis, unspecified (9) Elevated LFTs Status: Resolved (10) Hemoptysis Status: Acute Assessment & Plan: 06/13 -called by nursing staff last night that patient was coughing up thick bloody sputum -pt with RA and on Xeljanz -will check Quanterferon Gold for TB and send sputum for culture -place in isolation in negative pressure room until TB ruled out, although chances are low -pt states she had TB test before starting Xeljanz that was negative 06/14 -results of TB testing pending, pt to remain in isolation until result obtained 06/15 -preliminary results returned last night - negative for TB; pt taken out of TB isolation -bronch this AM by Dr. Bautista shows large amount of old bloody sputum but no active bleeding -consider pulmonary hemorrhage; will hold plavix and lovenox 06/16 -continues to have blood tinged, copious secretions 06/20 mycobacterial culture remains negative (11) Anemia Assessment & Plan: Stable Qualifiers: Qualified Codes: D64.9 - Anemia, unspecified (12) Cardiomegaly Status: Acute Assessment & Plan: 06/13 -CXR from yesterday and this AM both note significant enlargement from previous CXR on 04/17/18 -will check echo in AM 06/14 -CXR shows stable cardiomegaly -echo pending 06/15 -echo shows hyperdynamic LV, with EF 80-85%, Grade 2 Diastolic Dysfunction, tricuspid valve with mild to moderate regurgitation and pulmonary artery pressure estimated to be 50-55 mmHg (13) Grade II diastolic dysfunction Assessment & Plan: -new from pt's previous echo 08/24/2017, which made no mention of diastolic dysfunction (14) Tricuspid regurgitation Status: Chronic Qualifiers: Qualified Codes: I36.1 - Nonrheumatic tricuspid (valve) insufficiency (15) Pulmonary hypertension Status: Acute Assessment & Plan: 06/15 -pulmonary artery systolic pressure estimated 50-55 mmHg -previous 25 mmHg (Aug 2017), 20 mmHg (January 2017), 30 mmHg (2011) (16) Sleep apnea Status: Chronic Assessment & Plan: -pt has CPAP at home but reported to nursing staff that she does not wear it -encourage compliance with CPAP use after discharge Qualifiers: Qualified Codes: G47.33 - Obstructive sleep apnea (adult) (pediatric) (17) Coronary artery disease Status: Chronic Qualifiers: Qualified Codes: I25.10 - Atherosclerotic heart disease of [place] coronary artery without angina pectoris (18) Anxiety Status: Chronic (19) Bacteria in urine Status: Resolved Assessment & Plan: 06/13 -large bacteria on UA -urine cx pending -pt on rocephin for PNA which should provide adequate coverage until cx results available 06/14 -enterococcus per cx -change rocephin to levaquin based on sensitivities 06/15 -urine cx + enterococcus -levaquin 750 mg Q24h -abx day 3 06/16 -day 4 abx 06/17 -day 5 abx 06/18 day 6 abx 06/19 day 7 abx, urine should be fully treated. (20) Chronic pain Status: Chronic Assessment & Plan: 06/15 -pt normally on tramadol and gabapentin for chronic pain -will place on fentanyl gtt, as she is requiring large amounts of precedex and propofol and it could potential be secondary to some of her chronic pain 06/17 -fentanyl gtt, morphine PRN Qualifiers: Qualified Codes: G89.29 - Other chronic pain (21) Tobacco abuse Status: Chronic (22) Weakness Status: Acute (23) Elevated d-dimer Status: Acute Assessment & Plan: 06/14 -2.11 on admission --> 2.95 -CTA pending -doppler of LE shows no evidence of DVT 06/15 -CTA showed no evidence of PE (24) History of stroke Status: Chronic (25) DVT prophylaxis Status: Acute Assessment & Plan: 40 mg Lovenox SQ daily 06/15 -chemoprophylaxis on hold due to concern for pulmonary hemorrhage; SCDS in place (26) Obesity (BMI 30-39.9) Status: Chronic (27) Hyponatremia Status: Resolved Clinical Quality Measures DVT/VTE Risk/Contraindication: VTE Present on Admission: No Risk Factor Score Per Nursin RFS Level Per Nursing on Admit: 4+=Very High Contraindications-Pharm: Other *list below* Other: bronch this AM shows significant amount of bloody sputum, concern for pulmonary hemorrhage; holding all blood thinners; pt has SCDs on. Pneumonia: Pseudomonal Risk: COPD GLENN PEREZ MD Jun 20, 2018 2:18 pm
[2018-06-20] MEDS: fentaNYL INJECTION 100 MCG/2 ML AMP IV PRN (15:40)
[2018-06-20] MEDS: ATORVASTATIN 20 MG (LIPITOR) TABLET PO SCH (20:14)
[2018-06-21] VITALS (36 sets, daily range): BP systolic 103–172; BP diastolic 52–119
[2018-06-21] MEDS: inSUlin ASPART (NovoLOG) 1 UNIT/0.01 ML (CHARGE PER UNIT) SC SCH ×4 (00:31→18:12)
[2018-06-21] MEDS: DEXMEDETOMIDINE INJECTION 1,000 MCG in NS (IVPB) 240 ML IV SCH ×3 (03:03→16:55)
[2018-06-21 03:24] LABS: ABG OXYGEN SATURATION 93 % (94-100); ABG PCO2 36 MMHG (35-45); ABG PH 7.53 (7.37-7.43); ABG PO2 65 MMHG (79-93); ABG TCO2 31.4 MMOL/L (21.0-31.0); BASOPHILS % (AUTO) 0 % (0-10); EOSINOPHILS % (AUTO) 0 % (0-10); HEMATOCRIT 37 % (35-52); HEMOGLOBIN 12.7 G/DL (11.5-16.0); LYMPHOCYTES % (AUTO) 8 % (12-44); MEAN CORPUSCULAR HEMOGLOBIN 30 PG (25-34); MEAN CORPUSCULAR HGB CONC 34 G/DL (32-36); MEAN CORPUSCULAR VOLUME 89 FL (80-99); MEAN PLATELET VOLUME 8.7 FL (7.4-10.4); MONOCYTES # (AUTO) 0.6 X 10^3 (0.0-1.0); MONOCYTES % (AUTO) 5 % (0-12); NEUTROPHILS # (AUTO) 10.4 X 10^3 (1.8-7.8); NEUTROPHILS % (AUTO) 87 % (42-75); PLATELET COUNT 260 10^3/uL (130-400); RED BLOOD COUNT 4.21 10^6/uL (4.35-5.85); RED CELL DISTRIBUTION WIDTH 15.9 % (10.0-14.5)
[2018-06-21 03:28] LABS: ALLENS TEST ART LINE; INSPIRED O2 25%; PATIENT TEMP 97.4; VENTILATOR YES
[2018-06-21 03:43] LABS: BUN/CREATININE RATIO 35; CALCIUM 8.6 MG/DL (8.5-10.1); CARBON DIOXIDE 23 MMOL/L (21-32); CHLORIDE 98 MMOL/L (98-107); CREATININE SERUM 0.71 MG/DL (0.60-1.30); GFR ESTIMATED > 60; GLUCOSE 144 MG/DL (70-105); MAGNESIUM 2.4 MG/DL (1.8-2.4); PHOSPHORUS 3.1 MG/DL (2.3-4.7); POTASSIUM 3.7 MMOL/L (3.6-5.0); SODIUM 135 MMOL/L (135-145)
[2018-06-21] MEDS: CATHETER FLUSH 10 ML SYR IV SCH ×3 (04:19→21:48)
[2018-06-21] MEDS: POTASSIUM CL 10MEQ/50ML IVPB 50 ML IV SCH (04:19)
[2018-06-21] MEDS: KCL 20 MEQ TAB (K-DUR) PO SCH (04:19)
[2018-06-21] MEDS: MAGNESIUM 1 GM/100 ML IVPB 100 ML IV SCH (04:19)
[2018-06-21] MEDS ORDERED: fentaNYL INJECTION 100 MCG/2 ML AMP IV PRN (06:15)
[2018-06-21] MEDS: methylPREDNISolone 40 MG/ML (Solu-MEDROL) VIAL IV SCH ×3 (06:22→21:48)
[2018-06-21] MEDS: RT-ALBUTEROL/IPRATROPIUM 3 ML (DUONEB) VIAL INH SCH ×5 (06:46→22:30)
[2018-06-21] MEDS: LACTATED RINGERS 1,000 ML IV SCH (08:46)
[2018-06-21] MEDS: LORATADINE (CLARITIN) 10 MG TAB PO SCH (08:47)
[2018-06-21] MEDS: PANTOPRAZOLE 40 MG (PROTONIX) VIAL IV SCH (08:47)
[2018-06-21] MEDS: FUROSEMIDE 40 MG/4 ML INJ (LASIX) IVP SCH ×2 (08:47→20:34)
[2018-06-21] MEDS: ARTIFICIAL TEARS OINT (LACRI-LUBE) 3.5 GM TUBE OU SCH ×3 (08:47→20:34)
[2018-06-21] MEDS: FLUTICASONE NASAL SPRAY (FLONASE) 16 GM BTL NS SCH (08:47)
[2018-06-21] MEDS: risperiDONE 1 MG (RisperDAL) TAB PO SCH (08:47)
[2018-06-21] MEDS: amLODIPine 10 MG (NORVASC) TAB NG SCH (08:47)
[2018-06-21] MEDS: meTOprolol TARTRATE 25 MG (LOPRESSOR) TABLET PO SCH ×2 (08:47→20:34)
[2018-06-21] MEDS: LEVOFLOXACIN 750 MG/150 ML IV 150 ML IV SCH (08:47)
[2018-06-21] MEDS: ANIDULAFUNGIN INJECTION 100 MG in NS (IVPB) 100 ML IV SCH (08:52)
[2018-06-21] MEDS: POLYETHYLENE GLYCOL 17 GM (MIRALAX) PACK PO SCH ×2 (08:52→20:34)
[2018-06-21] MEDS: DOCUSATE SODIUM 10 MG/ML 10 ML UDC (COLACE) PO SCH ×2 (08:52→20:34)
--- NOTE | 2018-06-21 09:14 | Diagnostic Imaging Report ---
INDICATION: Dyspnea. TECHNIQUE: Single view chest 3:40 AM. CORRELATION STUDY: 06/20/2018 FINDINGS: Endotracheal tube, gastric tube and left-sided central line remain in place. Loop recorder device over the left heart border. Heart size enlarged. Vascular slightly prominent. There is overall limited depth of inspiration with crowding and atelectasis of the lung bases. The lung escobar overall appearing slightly improved in their aeration. IMPRESSION: 1. Stable support lines and tubes. 2. Critical enlargement, mild vascular congestion. 2. Crowding of lung bases but overall improved aeration through the lung escobar. Dictated by: Dictated on workstation # [id number]
--- NOTE | 2018-06-21 10:15 | Progress Note (SOAP) ---
Subjective Subjective/Events-last exam Afebrile. Working on weaning sedation, is moving legs some on my exam this am. No BM in spite of aggressive bowel regimen. Review of Systems Date Seen by Provider: Jun 21, 2018 Time Seen by Provider: 09:32 Objective Exam Last Set of Vital Signs Vital Signs Date Time Temp Pulse Resp B/P (MAP) Pulse Ox O2 Delivery O2 Flow Rate FiO2 06/21/18 10:00 73 13 118/61 (80) 98 Mechanical Ventilator 30.00 06/21/18 08:47 30 06/21/18 08:47 97.6 Capillary Refill : Greater Than 3 SecondsLess Than 3 Seconds I&O Intake and Output 06/21/18 00:00 Intake Total 2000 ml Output Total 6950 ml Balance -4950 ml Intake Oral 0 ml IV Total 1700 ml Other 300 ml Output Urine Total 6950 ml General: Alert, No Acute Distress Lungs: Other (Ronchi) Heart: Regular Rate, No Murmurs Abdomen: Normal Bowel Sounds, No Tenderness Neuro: Normal Speech Psych/Mental Status: Mental Status NL Results/Procedures Lab Laboratory Tests 06/20/18 11:17: Glucometer 191H 06/20/18 17:45: Glucometer 164H 06/21/18 00:27: Glucometer 167H 06/21/18 03:10: White Blood Count 12.0H, Red Blood Count 4.21L, Hemoglobin 12.7, Hematocrit 37, Mean Corpuscular Volume 89, Mean Corpuscular Hemoglobin 30, Mean Corpuscular Hemoglobin Concent 34, Red Cell Distribution Width 15.9H, Platelet Count 260, Mean Platelet Volume 8.7, Neutrophils (%) (Auto) 87H, Lymphocytes (%) (Auto) 8L , Monocytes (%) (Auto) 5, Eosinophils (%) (Auto) 0, Basophils (%) (Auto) 0, Neutrophils # (Auto) 10.4H, Lymphocytes # (Auto) 1.0, Monocytes # (Auto) 0.6, Eosinophils # (Auto) 0.0, Basophils # (Auto) 0.0, Blood Gas Puncture Site RIGHT RADIAL, Blood Gas Patient Temperature 97.4, Arterial Blood pH 7.53H, Arterial Blood Partial Pressure CO2 36, Arterial Blood Partial Pressure O2 65L, Arterial Blood HCO3 30H, Arterial Blood Total CO2 31.4H, Arterial Blood Oxygen Saturation 93L, Arterial Blood Base Excess 7.0H, Tanner Test ART LINE, Blood Gas Ventilator Setting YES, Blood Gas Inspired Oxygen 25%, Sodium Level 135, Potassium Level 3.7, Chloride Level 98, Carbon Dioxide Level 23, Anion Gap 14, Blood Urea Nitrogen 25H, Creatinine 0.71, Estimat Glomerular Filtration Rate > 60, BUN/Creatinine Ratio 35, Glucose Level 144H, Calcium Level 8.6, Phosphorus Level 3.1, Magnesium Level 2.4, Triglycerides Level 404#H Microbiology 06/12/18 Blood Culture - Final, Complete No growth 06/15/18 Mycobacterial Culture - Preliminary, Resulted See Comments 06/12/18 Urine Culture - Final, Complete Enterococcus faecalis Radiology Date of Exam: 06/12/18 CT HEAD WO-R/O STROKE EXAM: CT HEAD WO-R/O STROKE INDICATION: Leg weakness. Altered mental status. Slurred speech. COMPARISON: CT head without contrast from 08/24/2017. FINDINGS: No intracranial hemorrhage, mass effect, hydrocephalus, or extra-axial fluid collections. No CT evidence of acute infarction. Osseous structures are intact. The visualized paranasal sinuses and mastoids are unremarkable. IMPRESSION: No acute intracranial CT findings. Date of Exam: 06/12/18 CHEST 1 VIEW, AP/PA ONLY INDICATION: Wheezing. EXAMINATION: Portable erect AP chest at 4:42 p.m. FINDINGS: The heart is enlarged and has increased in size since the prior exam of 04/17/2018. Furthermore, in the interval since the prior study, alveolar/interstitial pulmonary infiltrates have developed in the right suprahilar region, the left upper lung and the left midlung. These findings could be secondary to pulmonary edema, pneumonia/atelectasis or a combination of all three. The periphery of the right lung is generally clear and there is no significant pleural effusion in either lung base. The mediastinum is not widened. The osseous structures are intact. There is a loop recorder device again noted overlying the left thorax. IMPRESSION: The appearance of the chest has worsened since the prior study as the heart has increased in size and alveolar/interstitial pulmonary infiltrates have developed, bilaterally, particularly on the left. These abnormal parenchymal densities may be related to pulmonary edema, pneumonia, atelectasis or a combination of all three. A followup exam would be recommended for continued evaluation. Date of Exam: 06/13/18 CHEST 1 VIEW, AP/PA ONLY INDICATION: Followup of infiltrates with shortness of breath. FINDINGS: Bilateral dense infiltrates noted in the upper lobes bilaterally. Moderate perihilar infiltrate noted in the left lower lobe as well. Right lower lung appears clear. The heart is mildly enlarged and has increased in size since 04/17/2018. No evidence of pleural effusion. No pneumothorax. IMPRESSION: 1. Increasing cardiac size. 2. Bilateral infiltrates present increasing in density since previous exam. These could represent inflammatory infiltrates or increasing pulmonary edema. Assessment/Plan Assessment/Plan (1) Severe sepsis Status: Acute Assessment & Plan: 06/13 -secondary to multi-lobar PNA -hypotension, improved after fluid bolus; febrile to 101.5, tachycardia and tachypnea -hydrocortisone 100 mg IV in ED, will start on prednisone (pt with solumedrol allergy)-CRP >15 06/14 -CXR again shows multi-lobar PNA -Day 3 Rocephin, Azithromycin -sputum culture + yeast, + e coli -urine cx + enterococcus -sensitivities indicate both sensitive to Levaquin, will change to 750 Levaquin daily, add Diflucan for yeast 06/15 -worsening CXR, concern for ARDS -Azithromycin, Levaquin -stop Diflucan, change to Eraxis -stop prednisone, change to Solu-Medrol 125 mg Q8H - pt allergy is burning skin and eye irritation, at this point it is felt that the potential benefit outweighs the risks; will monitor closely for signs of allergic rxn to medication -bronch this AM -blood cx with no growth to date - attempted to contact family; message left for daughter Kaycee that pt is critically ill and her overall prognosis is guarded at best; the next 48 hours will be critical 06/16 -no improvement in CXR -Eraxis, Azithromycin, Levaquin -Solu-medrol 125 mg Q8H; pt with no sign of intolerance or allergic reaction -blood cx with no growth to date -Day 4 abx 06/17 -some improvement in CXR from previous -Eraxis, Levaquin -Day 5 abx -Solu- medrol 125 mg Q8H Day 3 - no signs of intolerance or allergy -blood cx no growth to date 06/18- management per Dr. Bautista, no change in antimicrobials or clinical status 06/19- continue Eraxis, levofloxacin and solumedrol 06/[address] Bautista (2) ARDS (adult respiratory distress syndrome) Status: Acute Assessment & Plan: 06/17 -Vent Day 4 -Solu-Medrol 125 mg Q8H - Day 3 -some improvement in CXR this AM 06/18- stable with minimal improvement, working on weaning sedation 06/[address] Bautista, anticipating weaning later this week 06/20 trying to wean sedation today 06/21- continue weaning, hopeful for extubation this pm per Dr. Bautista (3) Multilobar lung infiltrate Status: Acute Assessment & Plan: See severe sepsis and ARDS plan (4) Acute respiratory failure with hypoxia Status: Acute Assessment & Plan: 06/15 -patient now on ventilator day 2, FiO2 at 50% -requiring a significant amount of sedation to tolerate vent, currently on both precedex and propofol -ABG this AM pH 7.33, pCO2 46, pO2 158 -worsening CXR, concerning for ARDS 06/16 -Vent Day 3, FiO2 35% -pt requiring large amounts of sedation and still tolerating turning and suctioning very poorly -given 5mg morphine prior to turning and suctioning with less severe hypotension ; pt was previously having systolic pressure drops into the 70s, when morphine given first patient did drop systolic pressure into the upper 80's but very briefly then returned to baseline -will order 5 mg morphine Q1H PRN turning and suctioning, with the hope that patient can wean down on some of her other high dose sedation, currently on propofol, precedex and fentanyl; fentanyl bolus prior to cares did not seem to help, patient did much better with morphine bolus 06/17 -continues to have copious secretions, but tolerating suctioning better with morphine prior -precedex off this AM, propofol and fentanyl gtt 06/18- continues on FiO2 30% and with excessive secretions and agitation requiring Precedex, propofol and fentanyl 06/19 FiO2 increased to 35% this am 06/20- working on beginning of weaning per Dr. Bautista (5) Hyperglycemia, drug-induced Status: Acute Assessment & Plan: 06/17 -HgbA1C checked on admission, <6.5 and patient without existing diagnosis of diabetes -elevated glucose secondary to high dose steroids -glucose over last 24 hours 166 - 141 - 158 - 172 - 181 -Pulmacort started today -NovoLog sliding scale B Q6 hours (6) Hypertension Status: Chronic Assessment & Plan: 06/17 -patient on home dose of lopressor 50 mg BID, HR is 60 -over last ~24 hours patient with elevated blood pressures -add 10 mg amlodipine per NG, as suspect HR will not tolerate increased beta danuta dose 06/20- BP rising, on metoprolol 25 mg BID and amlodipin 10 mg daily, will increase metoprolol to 50 mg BID. HR in 80s today. 06/21- improved Qualifiers: Qualified Codes: I10 - Essential (primary) hypertension (7) Acute renal injury due to sepsis Status: Resolved (8) Rheumatoid arthritis Status: Chronic Assessment & Plan: 06/13 -pt on Xeljanz 5 mg BID - hold for now 06/15 -continue to hold Xeljanz -extensive review of pt's chart, both hospital and clinic show that pt's current Manager Staffing is Dr. Ohara at [facility]; per progress notes in clinic system, pt's RA has been considered in remission since before 05/15/15, as that note reports it as "still in remission" -first diagnosed in 2005, at one point patient was on methotrexate and Yamilka 06/17 -MAX positive, 1:640, homogenous -anti-yarelis antibody positive -SS-A Ro antibody positive, La antibody negative Qualifiers: Qualified Codes: M06.9 - Rheumatoid arthritis, unspecified (9) Elevated LFTs Status: Resolved (10) Hemoptysis Status: Acute Assessment & Plan: 06/13 -called by nursing staff last night that patient was coughing up thick bloody sputum -pt with RA and on Xeljanz -will check Quanterferon Gold for TB and send sputum for culture -place in isolation in negative pressure room until TB ruled out, although chances are low -pt states she had TB test before starting Xeljanz that was negative 06/14 -results of TB testing pending, pt to remain in isolation until result obtained 06/15 -preliminary results returned last night - negative for TB; pt taken out of TB isolation -bronch this AM by Dr. Bautista shows large amount of old bloody sputum but no active bleeding -consider pulmonary hemorrhage; will hold plavix and lovenox 06/16 -continues to have blood tinged, copious secretions 06/21 mycobacterial culture remains negative (11) Anemia Assessment & Plan: Stable Qualifiers: Qualified Codes: D64.9 - Anemia, unspecified (12) Cardiomegaly Status: Acute Assessment & Plan: 06/13 -CXR from yesterday and this AM both note significant enlargement from previous CXR on 04/17/18 -will check echo in AM 06/14 -CXR shows stable cardiomegaly -echo pending 06/15 -echo shows hyperdynamic LV, with EF 80-85%, Grade 2 Diastolic Dysfunction, tricuspid valve with mild to moderate regurgitation and pulmonary artery pressure estimated to be 50-55 mmHg (13) Grade II diastolic dysfunction Assessment & Plan: -new from pt's previous echo 08/24/2017, which made no mention of diastolic dysfunction (14) Tricuspid regurgitation Status: Chronic Qualifiers: Qualified Codes: I36.1 - Nonrheumatic tricuspid (valve) insufficiency (15) Pulmonary hypertension Status: Acute Assessment & Plan: 06/15 -pulmonary artery systolic pressure estimated 50-55 mmHg -previous 25 mmHg (Aug 2017), 20 mmHg (January 2017), 30 mmHg (2011) (16) Sleep apnea Status: Chronic Qualifiers: Qualified Codes: G47.33 - Obstructive sleep apnea (adult) (pediatric) (17) Coronary artery disease Status: Chronic Qualifiers: Qualified Codes: I25.10 - Atherosclerotic heart disease of [place] coronary artery without angina pectoris (18) Anxiety Status: Chronic (19) Bacteria in urine Status: Resolved (20) Chronic pain Status: Chronic Assessment & Plan: 06/15 -pt normally on tramadol and gabapentin for chronic pain -will place on fentanyl gtt, as she is requiring large amounts of precedex and propofol and it could potential be secondary to some of her chronic pain 06/17 -fentanyl gtt, morphine PRN Qualifiers: Qualified Codes: G89.29 - Other chronic pain (21) Tobacco abuse Status: Chronic (22) Weakness Status: Acute (23) Elevated d-dimer Status: Acute Assessment & Plan: 06/14 -2.11 on admission --> 2.95 -CTA pending -doppler of LE shows no evidence of DVT 06/15 -CTA showed no evidence of PE (24) History of stroke Status: Chronic (25) DVT prophylaxis Status: Acute Assessment & Plan: 40 mg Lovenox SQ daily 06/15 -chemoprophylaxis on hold due to concern for pulmonary hemorrhage; SCDS in place (26) Obesity (BMI 30-39.9) Status: Chronic (27) Hyponatremia Status: Resolved Clinical Quality Measures DVT/VTE Risk/Contraindication: VTE Present on Admission: No Risk Factor Score Per Nursin RFS Level Per Nursing on Admit: 4+=Very High Contraindications-Pharm: Other *list below* Other: bronch this AM shows significant amount of bloody sputum, concern for pulmonary hemorrhage; holding all blood thinners; pt has SCDs on. Pneumonia: Pseudomonal Risk: COPD GLENN PEREZ MD Jun 21, 2018 10:15 am
[2018-06-21] MEDS: ENOXAPARIN 40 MG/0.4 ML (LOVENOX) SYR SQ SCH (12:14)
[2018-06-21] MEDS: morphine INJ 10 MG/ML 1ML (SYR OR VIAL) IVP PRN (12:26)
[2018-06-21] MEDS ORDERED: hydrALAZINE (APESOLINE) 20 MG/ML VIAL IV PRN (14:30)
[2018-06-21] MEDS: ATORVASTATIN 20 MG (LIPITOR) TABLET PO SCH (20:34)
[2018-06-21] MEDS ORDERED: risperiDONE 1 MG (RisperDAL) TAB NG SCH (21:00)
[2018-06-22] VITALS (31 sets, daily range): BP systolic 85–183; BP diastolic 61–98
[2018-06-22] MEDS: inSUlin ASPART (NovoLOG) 1 UNIT/0.01 ML (CHARGE PER UNIT) SC SCH ×4 (00:20→17:39)
[2018-06-22] MEDS: DEXMEDETOMIDINE INJECTION 1,000 MCG in NS (IVPB) 240 ML IV SCH ×4 (00:20→17:39)
[2018-06-22] MEDS: RT-ALBUTEROL/IPRATROPIUM 3 ML (DUONEB) VIAL INH SCH ×6 (02:20→22:36)
[2018-06-22 03:54] LABS: BASOPHILS % (AUTO) 0 % (0-10); EOSINOPHILS % (AUTO) 0 % (0-10); HEMATOCRIT 39 % (35-52); HEMOGLOBIN 13.3 G/DL (11.5-16.0); LYMPHOCYTES # (AUTO) 0.7 X 10^3 (1.0-4.0); LYMPHOCYTES % (AUTO) 5 % (12-44); MEAN CORPUSCULAR HEMOGLOBIN 30 PG (25-34); MEAN CORPUSCULAR HGB CONC 34 G/DL (32-36); MEAN CORPUSCULAR VOLUME 87 FL (80-99); MEAN PLATELET VOLUME 9.1 FL (7.4-10.4); MONOCYTES # (AUTO) 0.5 X 10^3 (0.0-1.0); MONOCYTES % (AUTO) 4 % (0-12); NEUTROPHILS # (AUTO) 12.5 X 10^3 (1.8-7.8); NEUTROPHILS % (AUTO) 91 % (42-75); PLATELET COUNT 214 10^3/uL (130-400); RED BLOOD COUNT 4.44 10^6/uL (4.35-5.85); RED CELL DISTRIBUTION WIDTH 15.9 % (10.0-14.5); WHITE BLOOD COUNT 13.8 10^3/uL (4.3-11.0)
[2018-06-22 03:55] LABS: ABG BASE EXCESS 6.4 MMOL/L (-2.5-2.5); ABG OXYGEN SATURATION 94 % (94-100); ABG PCO2 33 MMHG (35-45); ABG PH 7.55 (7.37-7.43); ABG PO2 69 MMHG (79-93); ABG TCO2 30.5 MMOL/L (21.0-31.0)
[2018-06-22 03:57] LABS: ALLENS TEST YES-POS; INSPIRED O2 30%; VENTILATOR YES
[2018-06-22 04:21] LABS: BUN/CREATININE RATIO 42; CARBON DIOXIDE 25 MMOL/L (21-32); CHLORIDE 100 MMOL/L (98-107); CREATININE SERUM 0.73 MG/DL (0.60-1.30); POTASSIUM 3.1 MMOL/L (3.6-5.0); SODIUM 138 MMOL/L (135-145)
[2018-06-22 04:22] LABS: CALCIUM 9.2 MG/DL (8.5-10.1); GFR ESTIMATED > 60; GLUCOSE 154 MG/DL (70-105); MAGNESIUM 2.7 MG/DL (1.8-2.4); PHOSPHORUS 3.3 MG/DL (2.3-4.7)
[2018-06-22] MEDS: POTASSIUM CL 10MEQ/50ML IVPB 50 ML IV SCH ×6 (05:13→13:04)
[2018-06-22] MEDS: KCL 20 MEQ TAB (K-DUR) PO SCH (05:13)
[2018-06-22] MEDS: MAGNESIUM 1 GM/100 ML IVPB 100 ML IV SCH (05:13)
--- NOTE | 2018-06-22 05:31 | Pulmonary Progress Note ---
Subjective Time Seen by Provider: 04:27 Subjective/Events-last exam Pt is doing better. Sepsis Event Evaluation Height, Weight, BMI Height: 5'6.00" Weight: 223lbs. 2.0oz. 101.723792bc; 37.8 BMI Method:Stated Exam Exam Vital Signs Date Time Temp Pulse Resp B/P (MAP) Pulse Ox O2 Delivery O2 Flow Rate FiO2 06/22/18 04:00 89 20 98 06/22/18 04:00 93 20 97 25 06/22/18 03:40 98 Mechanical Ventilator 25 06/22/18 03:40 97.0 Mechanical Ventilator 25.00 06/22/18 03:00 93 21 121/61 (81) 97 Mechanical Ventilator 30.00 06/22/18 02:20 94 23 98 25 06/22/18 02:00 92 19 130/72 (91) 96 Mechanical Ventilator 30.00 06/22/18 01:00 99 06/22/18 01:00 97 20 155/81 (105) 93 Mechanical Ventilator 30.00 06/22/18 00:45 90 19 92 30 06/22/18 00:15 97.7 Mechanical Ventilator 30.00 06/22/18 00:00 90 17 121/70 (87) 96 Mechanical Ventilator 30.00 06/21/18 23:31 96 Mechanical Ventilator 30 06/21/18 23:00 103 29 123/66 (85) 97 Mechanical Ventilator 30.00 06/21/18 22:30 93 20 97 30 06/21/18 22:00 96 17 127/79 (95) 96 Mechanical Ventilator 30.00 06/21/18 21:00 103 23 158/90 (112) 96 Mechanical Ventilator 30.00 06/21/18 20:00 97 Mechanical Ventilator 30 06/21/18 20:00 104 17 150/86 (107) 95 Mechanical Ventilator 30.00 06/21/18 19:35 98.7 104 21 155/63 (93) 95 Mechanical Ventilator 30.00 06/21/18 19:00 103 18 162/95 (117) 95 Mechanical Ventilator 30.00 06/21/18 19:00 111 06/21/18 18:41 100 21 99 30 06/21/18 18:00 92 16 157/93 (114) 97 Mechanical Ventilator 30.00 06/21/18 17:00 105 14 172/92 (118) 96 Mechanical Ventilator 30.00 06/21/18 16:55 97 Mechanical Ventilator 30 06/21/18 16:36 96 19 97 30 06/21/18 16:00 99 13 158/111 (127) 95 Mechanical Ventilator 30.00 06/21/18 15:00 87 20 146/77 (100) 95 Mechanical Ventilator 30.00 06/21/18 14:09 101 20 94 30 06/21/18 14:00 87 17 146/74 (98) 94 Mechanical Ventilator 30.00 06/21/18 13:00 98 06/21/18 13:00 92 20 164/119 (134) 95 Mechanical Ventilator 30.00 06/21/18 12:50 92 18 97 30 06/21/18 12:26 97 Mechanical Ventilator 30 06/21/18 12:00 97.7 Mechanical Ventilator 30.00 06/21/18 12:00 92 23 131/80 (97) 97 Mechanical Ventilator 30.00 06/21/18 11:00 98 14 139/96 (110) 94 Mechanical Ventilator 30.00 06/21/18 10:24 82 18 99 30 06/21/18 10:00 73 13 118/61 (80) 98 Mechanical Ventilator 30.00 06/21/18 09:00 74 16 128/55 (79) 94 Mechanical Ventilator 30.00 06/21/18 08:47 77 16 95 30 06/21/18 08:47 97.6 Mechanical Ventilator 30.00 06/21/18 08:47 97 Mechanical Ventilator 30 06/21/18 08:00 79 11 140/64 (89) 94 Mechanical Ventilator 30.00 06/21/18 07:00 75 06/21/18 07:00 75 18 118/55 (76) 97 Mechanical Ventilator 30.00 06/21/18 06:46 74 17 97 30 06/21/18 06:00 87 11 119/66 (83) 92 Mechanical Ventilator 30.00 06/21/18 05:30 77 20 112/52 (72) 94 Mechanical Ventilator 25.00 I & O 06/22/18 07:00 Intake Total 960 ml Output Total 4445 ml Balance -3485 ml Height & Weight Height: 5'6.00" Weight: 223lbs. 2.0oz. 101.208086up; 37.8 BMI Method:Stated General Appearance: WD/WN, Mild Distress HEENT: PERRL/EOMI, Pharynx Normal Neck: Non Tender, Supple Respiratory: Crackles, Decreased Breath Sounds, Expiration, Wheezing Cardiovascular: Regular Rate, Rhythm, No Murmur Capillary Refill: Less Than 3 Seconds Peripheral Pulses: 2+ Radial Pulses (R), 2+ Radial Pulses (L) Gastrointestinal: normal bowel sounds, non tender, soft, no organomegaly Extremity: Normal Range of Motion, Non Tender Neurologic/Psychiatric: No Motor/Sensory Deficits, Other (sedated on vent ) Skin: Normal Color, Warm/Dry Lymphatic: No Adenopathy Results Lab Laboratory Tests 06/21/18 03:10 06/22/18 03:40 Assessment/Plan Assessment/Plan Acute respiratory failure secondary to pneumonia s/p bronchoscopy - - Eraxis -versed gtt -D/C all sedation - 40mg of Lasix BID -KVO IVF -Tube feeds with pulmicare. - HOLD for weaning -Await viramontes cultures -Hold plavix -Sedation: fentanyl Propofol Ativan ARDS - improving COPDAE -DuoNeb Q4 UTI with Sepsis -Continue Abx therapy -Currently on Rocephin and azithromycin Metabolic encephalopathy -Risperdol added over the weededn HX of depression -- I question if pt is BiPolar Acute renal failure -improved -present on admission HX of CVA and TPA in the past -CT on admission was negative DVT/GI PPX -Continue protonix QUINN VELÁZQUEZ DO Jun 22, 2018 05:31
[2018-06-22] MEDS: methylPREDNISolone 40 MG/ML (Solu-MEDROL) VIAL IV SCH ×2 (05:41→20:41)
[2018-06-22] MEDS: CATHETER FLUSH 10 ML SYR IV SCH ×3 (05:41→21:58)
--- NOTE | 2018-06-22 07:31 | Diagnostic Imaging Report ---
INDICATION: Dyspnea. COMPARISON: 06/21/2018. FINDINGS: Two frontal radiographic views of the chest were obtained and demonstrate indwelling endotracheal tube with tip at the clavicular heads. Gastric tube is also seen with tip in the stomach. Left upper extremity PICC line is present with tip in the SVC. Cardiac silhouette and pulmonary vasculature within normal limits. Lungs are clear. There is no focal consolidation, large effusion, nor pneumothorax. Bony structures show no gross acute abnormalities. IMPRESSION: 1. Lines and tubes as above. 2. Otherwise, no acute cardiopulmonary process. Dictated by: Dictated on workstation # [id number]
[2018-06-22] MEDS: PANTOPRAZOLE 40 MG (PROTONIX) VIAL IV SCH (08:04)
[2018-06-22] MEDS: LEVOFLOXACIN 750 MG/150 ML IV 150 ML IV SCH (08:04)
[2018-06-22] MEDS: meTOprolol TARTRATE 25 MG (LOPRESSOR) TABLET PO SCH ×2 (08:05→20:02)
[2018-06-22] MEDS: POLYETHYLENE GLYCOL 17 GM (MIRALAX) PACK PO SCH ×2 (08:05→20:01)
[2018-06-22] MEDS: FLUTICASONE NASAL SPRAY (FLONASE) 16 GM BTL NS SCH (08:05)
[2018-06-22] MEDS: amLODIPine 10 MG (NORVASC) TAB NG SCH (08:05)
[2018-06-22] MEDS: DOCUSATE SODIUM 10 MG/ML 10 ML UDC (COLACE) PO SCH ×2 (08:05→20:01)
[2018-06-22] MEDS: LORATADINE (CLARITIN) 10 MG TAB PO SCH (08:05)
[2018-06-22] MEDS: ARTIFICIAL TEARS OINT (LACRI-LUBE) 3.5 GM TUBE OU SCH ×3 (08:07→20:01)
[2018-06-22] MEDS ORDERED: FUROSEMIDE 40 MG/4 ML INJ (LASIX) IVP SCH (09:00)
[2018-06-22] MEDS: ANIDULAFUNGIN INJECTION 100 MG in NS (IVPB) 100 ML IV SCH (10:16)
--- NOTE | 2018-06-22 11:41 | Progress Note (SOAP) ---
Subjective Subjective/Events-last exam Afebrile, sedation being d/c'd to try to extubate today. Her eyes are open but she does not clearly respond to me. Review of Systems Date Seen by Provider: Jun 22, 2018 Time Seen by Provider: 10:45 Objective Exam Last Set of Vital Signs Vital Signs Date Time Temp Pulse Resp B/P (MAP) Pulse Ox O2 Delivery O2 Flow Rate FiO2 06/22/18 11:00 110 17 124/88 (100) 92 Mechanical Ventilator 25.00 06/22/18 08:44 25 06/22/18 08:00 97.8 Capillary Refill : Greater Than 3 SecondsLess Than 3 Seconds I&O Intake and Output 06/22/18 00:00 Intake Total 1542.5 ml Output Total 5370 ml Balance -3827.5 ml Intake Oral 0 ml IV Total 1122.5 ml Other 420 ml Output Urine Total 4970 ml Gastric Drainage Total 400 ml # Bowel Movements 1 General: Alert Lungs: Clear to Auscultation, Normal Air Movement Abdomen: Normal Bowel Sounds, No Tenderness Results/Procedures Lab Laboratory Tests 06/21/18 12:19: Glucometer 126H 06/21/18 18:11: Glucometer 170H 06/22/18 00:17: Glucometer 203H 06/22/18 03:40: White Blood Count 13.8H, Red Blood Count 4.44, Hemoglobin 13.3, Hematocrit 39, Mean Corpuscular Volume 87, Mean Corpuscular Hemoglobin 30, Mean Corpuscular Hemoglobin Concent 34, Red Cell Distribution Width 15.9H, Platelet Count 214, Mean Platelet Volume 9.1, Neutrophils (%) (Auto) 91H, Lymphocytes (%) (Auto) 5L , Monocytes (%) (Auto) 4, Eosinophils (%) (Auto) 0, Basophils (%) (Auto) 0, Neutrophils # (Auto) 12.5H, Lymphocytes # (Auto) 0.7L, Monocytes # (Auto) 0.5, Eosinophils # (Auto) 0.0, Basophils # (Auto) 0.0, Blood Gas Puncture Site RIGHT RADIAL, Blood Gas Patient Temperature 97.0, Arterial Blood pH 7.55H, Arterial Blood Partial Pressure CO2 33L, Arterial Blood Partial Pressure O2 69L, Arterial Blood HCO3 29H, Arterial Blood Total CO2 30.5, Arterial Blood Oxygen Saturation 94, Arterial Blood Base Excess 6.4H, Tanner Test YES-POS, Blood Gas Ventilator Setting YES, Blood Gas Inspired Oxygen 30%, Sodium Level 138, Potassium Level 3.1L, Chloride Level 100, Carbon Dioxide Level 25, Anion Gap 13 , Blood Urea Nitrogen 31H, Creatinine 0.73, Estimat Glomerular Filtration Rate > 60, BUN/Creatinine Ratio 42, Glucose Level 154H, Calcium Level 9.2, Phosphorus Level 3.3, Magnesium Level 2.7H Microbiology 06/12/18 Blood Culture - Final, Complete No growth 06/15/18 Mycobacterial Culture - Preliminary, Resulted See Comments 06/12/18 Urine Culture - Final, Complete Enterococcus faecalis Radiology Date of Exam: 06/12/18 CT HEAD WO-R/O STROKE EXAM: CT HEAD WO-R/O STROKE INDICATION: Leg weakness. Altered mental status. Slurred speech. COMPARISON: CT head without contrast from 08/24/2017. FINDINGS: No intracranial hemorrhage, mass effect, hydrocephalus, or extra-axial fluid collections. No CT evidence of acute infarction. Osseous structures are intact. The visualized paranasal sinuses and mastoids are unremarkable. IMPRESSION: No acute intracranial CT findings. Date of Exam: 06/12/18 CHEST 1 VIEW, AP/PA ONLY INDICATION: Wheezing. EXAMINATION: Portable erect AP chest at 4:42 p.m. FINDINGS: The heart is enlarged and has increased in size since the prior exam of 04/17/2018. Furthermore, in the interval since the prior study, alveolar/interstitial pulmonary infiltrates have developed in the right suprahilar region, the left upper lung and the left midlung. These findings could be secondary to pulmonary edema, pneumonia/atelectasis or a combination of all three. The periphery of the right lung is generally clear and there is no significant pleural effusion in either lung base. The mediastinum is not widened. The osseous structures are intact. There is a loop recorder device again noted overlying the left thorax. IMPRESSION: The appearance of the chest has worsened since the prior study as the heart has increased in size and alveolar/interstitial pulmonary infiltrates have developed, bilaterally, particularly on the left. These abnormal parenchymal densities may be related to pulmonary edema, pneumonia, atelectasis or a combination of all three. A followup exam would be recommended for continued evaluation. Date of Exam: 06/13/18 CHEST 1 VIEW, AP/PA ONLY INDICATION: Followup of infiltrates with shortness of breath. FINDINGS: Bilateral dense infiltrates noted in the upper lobes bilaterally. Moderate perihilar infiltrate noted in the left lower lobe as well. Right lower lung appears clear. The heart is mildly enlarged and has increased in size since 04/17/2018. No evidence of pleural effusion. No pneumothorax. IMPRESSION: 1. Increasing cardiac size. 2. Bilateral infiltrates present increasing in density since previous exam. These could represent inflammatory infiltrates or increasing pulmonary edema. Assessment/Plan Assessment/Plan (1) Severe sepsis Status: Acute Assessment & Plan: 06/13 -secondary to multi-lobar PNA -hypotension, improved after fluid bolus; febrile to 101.5, tachycardia and tachypnea -hydrocortisone 100 mg IV in ED, will start on prednisone (pt with solumedrol allergy)-CRP >15 06/14 -CXR again shows multi-lobar PNA -Day 3 Rocephin, Azithromycin -sputum culture + yeast, + e coli -urine cx + enterococcus -sensitivities indicate both sensitive to Levaquin, will change to 750 Levaquin daily, add Diflucan for yeast 06/15 -worsening CXR, concern for ARDS -Azithromycin, Levaquin -stop Diflucan, change to Eraxis -stop prednisone, change to Solu-Medrol 125 mg Q8H - pt allergy is burning skin and eye irritation, at this point it is felt that the potential benefit outweighs the risks; will monitor closely for signs of allergic rxn to medication -bronch this AM -blood cx with no growth to date - attempted to contact family; message left for daughter Kaycee that pt is critically ill and her overall prognosis is guarded at best; the next 48 hours will be critical 06/16 -no improvement in CXR -Eraxis, Azithromycin, Levaquin -Solu-medrol 125 mg Q8H; pt with no sign of intolerance or allergic reaction -blood cx with no growth to date -Day 4 abx 06/17 -some improvement in CXR from previous -Eraxis, Levaquin -Day 5 abx -Solu- medrol 125 mg Q8H Day 3 - no signs of intolerance or allergy -blood cx no growth to date 06/18- management per Dr. Bautista, no change in antimicrobials or clinical status 06/19- continue Eraxis, levofloxacin and solumedrol 06/[address] Bautista 06/22- decreased solumedrol dose (2) ARDS (adult respiratory distress syndrome) Status: Acute Assessment & Plan: 06/17 -Vent Day 4 -Solu-Medrol 125 mg Q8H - Day 3 -some improvement in CXR this AM 06/18- stable with minimal improvement, working on weaning sedation 06/[address] Bautista, anticipating weaning later this week 06/20 trying to wean sedation today 06/21- continue weaning, hopeful for extubation this pm per Dr. Bautista 06/22- d/c sedation per Dr. Bautista, working toward extubation (3) Multilobar lung infiltrate Status: Acute Assessment & Plan: See severe sepsis and ARDS plan (4) Acute respiratory failure with hypoxia Status: Acute Assessment & Plan: 06/15 -patient now on ventilator day 2, FiO2 at 50% -requiring a significant amount of sedation to tolerate vent, currently on both precedex and propofol -ABG this AM pH 7.33, pCO2 46, pO2 158 -worsening CXR, concerning for ARDS 06/16 -Vent Day 3, FiO2 35% -pt requiring large amounts of sedation and still tolerating turning and suctioning very poorly -given 5mg morphine prior to turning and suctioning with less severe hypotension ; pt was previously having systolic pressure drops into the 70s, when morphine given first patient did drop systolic pressure into the upper 80's but very briefly then returned to baseline -will order 5 mg morphine Q1H PRN turning and suctioning, with the hope that patient can wean down on some of her other high dose sedation, currently on propofol, precedex and fentanyl; fentanyl bolus prior to cares did not seem to help, patient did much better with morphine bolus 06/17 -continues to have copious secretions, but tolerating suctioning better with morphine prior -precedex off this AM, propofol and fentanyl gtt 06/18- continues on FiO2 30% and with excessive secretions and agitation requiring Precedex, propofol and fentanyl 06/19 FiO2 increased to 35% this am 06/20- working on beginning of weaning per Dr. Bautista (5) Hyperglycemia, drug-induced Status: Acute Assessment & Plan: 06/17 -HgbA1C checked on admission, <6.5 and patient without existing diagnosis of diabetes -elevated glucose secondary to high dose steroids -glucose over last 24 hours 166 - 141 - 158 - 172 - 181 -Pulmacort started today -NovoLog sliding scale B Q6 hours (6) Hypertension Status: Chronic Assessment & Plan: 06/17 -patient on home dose of lopressor 50 mg BID, HR is 60 -over last ~24 hours patient with elevated blood pressures -add 10 mg amlodipine per NG, as suspect HR will not tolerate increased beta danuta dose 06/20- BP rising, on metoprolol 25 mg BID and amlodipin 10 mg daily, will increase metoprolol to 50 mg BID. HR in 80s today. 06/21- improved Qualifiers: Qualified Codes: I10 - Essential (primary) hypertension (7) Acute renal injury due to sepsis Status: Resolved (8) Rheumatoid arthritis Status: Chronic Assessment & Plan: 06/13 -pt on Xeljanz 5 mg BID - hold for now 06/15 -continue to hold Xeljanz -extensive review of pt's chart, both hospital and clinic show that pt's current [employer] Tender is Dr. Ohara at [facility]; per progress notes in clinic system, pt's RA has been considered in remission since before 05/15/15, as that note reports it as "still in remission" -first diagnosed in 2005, at one point patient was on methotrexate and Yamilka 06/17 -MAX positive, 1:640, homogenous -anti-yarelis antibody positive -SS-A Ro antibody positive, La antibody negative Qualifiers: Qualified Codes: M06.9 - Rheumatoid arthritis, unspecified (9) Elevated LFTs Status: Resolved (10) Hemoptysis Status: Acute Assessment & Plan: 06/13 -called by nursing staff last night that patient was coughing up thick bloody sputum -pt with RA and on Xeljanz -will check Quanterferon Gold for TB and send sputum for culture -place in isolation in negative pressure room until TB ruled out, although chances are low -pt states she had TB test before starting Xeljanz that was negative 06/14 -results of TB testing pending, pt to remain in isolation until result obtained 06/15 -preliminary results returned last night - negative for TB; pt taken out of TB isolation -bronch this AM by Dr. Bautista shows large amount of old bloody sputum but no active bleeding -consider pulmonary hemorrhage; will hold plavix and lovenox 06/16 -continues to have blood tinged, copious secretions 06/22 mycobacterial culture remains negative (11) Anemia Assessment & Plan: Stable Qualifiers: Qualified Codes: D64.9 - Anemia, unspecified (12) Cardiomegaly Status: Acute Assessment & Plan: 06/13 -CXR from yesterday and this AM both note significant enlargement from previous CXR on 04/17/18 -will check echo in AM 06/14 -CXR shows stable cardiomegaly -echo pending 06/15 -echo shows hyperdynamic LV, with EF 80-85%, Grade 2 Diastolic Dysfunction, tricuspid valve with mild to moderate regurgitation and pulmonary artery pressure estimated to be 50-55 mmHg (13) Grade II diastolic dysfunction Assessment & Plan: -new from pt's previous echo 08/24/2017, which made no mention of diastolic dysfunction (14) Tricuspid regurgitation Status: Chronic Qualifiers: Qualified Codes: I36.1 - Nonrheumatic tricuspid (valve) insufficiency (15) Pulmonary hypertension Status: Acute Assessment & Plan: 06/15 -pulmonary artery systolic pressure estimated 50-55 mmHg -previous 25 mmHg (Aug 2017), 20 mmHg (January 2017), 30 mmHg (2011) (16) Sleep apnea Status: Chronic Qualifiers: Qualified Codes: G47.33 - Obstructive sleep apnea (adult) (pediatric) (17) Coronary artery disease Status: Chronic Qualifiers: Qualified Codes: I25.10 - Atherosclerotic heart disease of [place] coronary artery without angina pectoris (18) Anxiety Status: Chronic (19) Bacteria in urine Status: Resolved (20) Chronic pain Status: Chronic Assessment & Plan: 06/15 -pt normally on tramadol and gabapentin for chronic pain -will place on fentanyl gtt, as she is requiring large amounts of precedex and propofol and it could potential be secondary to some of her chronic pain 06/17 -fentanyl gtt, morphine PRN 06/22 fentanyl and morphine d/c to aid in decreasing sedation for extubation Qualifiers: Qualified Codes: G89.29 - Other chronic pain (21) Tobacco abuse Status: Chronic (22) Weakness Status: Acute (23) Elevated d-dimer Status: Acute Assessment & Plan: 06/14 -2.11 on admission --> 2.95 -CTA pending -doppler of LE shows no evidence of DVT 06/15 -CTA showed no evidence of PE (24) History of stroke Status: Chronic (25) Obesity (BMI 30-39.9) Status: Chronic (26) Hyponatremia Status: Resolved (27) DVT prophylaxis Status: Acute Assessment & Plan: 40 mg Lovenox SQ daily 06/15 -chemoprophylaxis on hold due to concern for pulmonary hemorrhage; SCDS in place 06/22- no evidence of hemorrhage on bronchoscopy, discussed with Dr. Bautista and resumed enoxaparin yesterday Clinical Quality Measures DVT/VTE Risk/Contraindication: VTE Present on Admission: No Risk Factor Score Per Nursin RFS Level Per Nursing on Admit: 4+=Very High Contraindications-Pharm: Other *list below* Other: bronch this AM shows significant amount of bloody sputum, concern for pulmonary hemorrhage; holding all blood thinners; pt has SCDs on. Pneumonia: Pseudomonal Risk: COPD GLENN PEREZ MD Jun 22, 2018 11:41
[2018-06-22] MEDS: ENOXAPARIN 40 MG/0.4 ML (LOVENOX) SYR SQ SCH (13:04)
[2018-06-22] MEDS ORDERED: meTOprolol 5 MG/5 ML (LOPRESSOR) VIAL ONE ×2 (15:13→18:48)
[2018-06-22] MEDS ORDERED: meTOprolol 5 MG/5 ML (LOPRESSOR) VIAL IV ONE (15:30)
[2018-06-22] MEDS: LABETALOL HCL 20 MG/4 ML VIAL IV PRN (18:40)
[2018-06-22] MEDS ORDERED: meTOprolol 5 MG/5 ML (LOPRESSOR) VIAL IV NR (19:00)
[2018-06-22] MEDS: ATORVASTATIN 20 MG (LIPITOR) TABLET PO SCH (20:02)
[2018-06-22] MEDS: LACTATED RINGERS 1,000 ML IV SCH ×2 (20:41→23:33)
[2018-06-23] VITALS (26 sets, daily range): BP systolic 120–186; BP diastolic 37–106
[2018-06-23] MEDS: inSUlin ASPART (NovoLOG) 1 UNIT/0.01 ML (CHARGE PER UNIT) SC SCH ×4 (00:23→18:30)
[2018-06-23] MEDS: LABETALOL HCL 20 MG/4 ML VIAL IV PRN ×2 (01:40→20:23)
[2018-06-23] MEDS: RT-ALBUTEROL/IPRATROPIUM 3 ML (DUONEB) VIAL INH SCH ×6 (02:28→21:35)
[2018-06-23 04:11] LABS: BASOPHILS % (AUTO) 0 % (0-10); EOSINOPHILS % (AUTO) 0 % (0-10); HEMATOCRIT 42 % (35-52); HEMOGLOBIN 14.1 G/DL (11.5-16.0); LYMPHOCYTES # (AUTO) 0.9 X 10^3 (1.0-4.0); LYMPHOCYTES % (AUTO) 6 % (12-44); MEAN CORPUSCULAR HEMOGLOBIN 30 PG (25-34); MEAN CORPUSCULAR HGB CONC 34 G/DL (32-36); MEAN CORPUSCULAR VOLUME 89 FL (80-99); MEAN PLATELET VOLUME 9.5 FL (7.4-10.4); MONOCYTES # (AUTO) 0.8 X 10^3 (0.0-1.0); MONOCYTES % (AUTO) 6 % (0-12); NEUTROPHILS % (AUTO) 88 % (42-75); PLATELET COUNT 213 10^3/uL (130-400); RED BLOOD COUNT 4.68 10^6/uL (4.35-5.85); RED CELL DISTRIBUTION WIDTH 16.4 % (10.0-14.5); WHITE BLOOD COUNT 14.8 10^3/uL (4.3-11.0)
--- NOTE | 2018-06-23 04:33 | Pulmonary Progress Note ---
Subjective Time Seen by Provider: 04:30 Subjective/Events-last exam PT was extubated last night. Sepsis Event Evaluation Height, Weight, BMI Height: 5'6.00" Weight: 212lbs. 3.0oz. 96.610195kg; 37.8 BMI Method:Stated Exam Exam Vital Signs Date Time Temp Pulse Resp B/P (MAP) Pulse Ox O2 Delivery O2 Flow Rate FiO2 06/23/18 04:00 96 34 142/91 (108) 100 NIV CPAP 40.00 06/23/18 03:00 102 30 144/89 (107) 100 NIV CPAP 40.00 06/23/18 02:37 NIV CPAP 40.00 06/23/18 02:28 94 25 99 45.00 06/23/18 02:00 89 33 149/87 (107) 100 NIV CPAP 45.00 06/23/18 01:00 105 06/23/18 01:00 104 35 169/97 (121) 100 NIV CPAP 45.00 06/23/18 00:03 115 13 129/95 (106) 98 NIV CPAP 45.00 06/23/18 00:00 98.5 06/23/18 00:00 99 NIV CPAP 45 06/22/18 23:37 NIV CPAP 45.00 06/22/18 23:36 103 36 98 45.00 06/22/18 23:00 110 37 172/96 (121) 91 Nasal Cannula 3.00 06/22/18 22:37 94 Nasal Cannula 3.00 06/22/18 22:07 105 94 32 06/22/18 22:00 106 29 158/91 (113) 96 Nasal Cannula 3.00 06/22/18 21:00 100 33 144/80 (101) 93 Nasal Cannula 3.00 06/22/18 20:00 Nasal Cannula 2.00 06/22/18 20:00 98 36 142/80 (100) 94 Nasal Cannula 3.00 06/22/18 20:00 97.4 06/22/18 19:14 94 Nasal Cannula 3.00 06/22/18 19:13 94 3.00 06/22/18 19:00 100 06/22/18 19:00 99 28 157/86 (109) 94 Nasal Cannula 3.00 06/22/18 18:00 117 35 153/90 (111) 98 Nasal Cannula 3.00 06/22/18 17:05 95 Nasal Cannula 3.00 06/22/18 17:00 122 13 149/93 (111) 98 Mechanical Ventilator 25.00 06/22/18 16:00 110 43 163/70 (101) 93 Mechanical Ventilator 25.00 06/22/18 15:50 Mechanical Ventilator 25 06/22/18 15:40 97.1 06/22/18 15:00 128 21 95 Mechanical Ventilator 25.00 06/22/18 14:38 121 20 95 25 06/22/18 14:00 126 22 121/74 (90) 93 Mechanical Ventilator 25.00 06/22/18 13:00 124 21 166/69 (101) 91 Mechanical Ventilator 25.00 06/22/18 13:00 124 06/22/18 12:00 123 18 148/65 (92) 93 Mechanical Ventilator 25.00 06/22/18 11:52 Mechanical Ventilator 25 06/22/18 11:50 98.3 06/22/18 11:36 114 19 92 25 06/22/18 11:00 110 17 124/88 (100) 92 Mechanical Ventilator 25.00 06/22/18 10:00 107 21 134/88 (103) 97 Mechanical Ventilator 25.00 06/22/18 09:00 103 21 113/68 (83) 93 Mechanical Ventilator 25.00 06/22/18 08:44 105 20 94 25 06/22/18 08:00 Mechanical Ventilator 25 06/22/18 08:00 113 19 146/65 (92) 96 Mechanical Ventilator 25.00 06/22/18 08:00 97.8 06/22/18 07:24 105 20 94 25 06/22/18 07:00 109 06/22/18 07:00 102 19 145/83 (103) 96 Mechanical Ventilator 25.00 06/22/18 06:00 101 18 143/85 (104) 98 Mechanical Ventilator 30.00 06/22/18 05:00 101 19 142/80 (100) 98 Mechanical Ventilator 30.00 I & O 06/23/18 07:00 Intake Total 740 ml Output Total 2235 ml Balance -1495 ml Height & Weight Height: 5'6.00" Weight: 212lbs. 3.0oz. 96.819011ql; 37.8 BMI Method:Stated General Appearance: WD/WN, Mild Distress HEENT: PERRL/EOMI, Pharynx Normal Neck: Non Tender, Supple Respiratory: Normal Breath Sounds, Crackles, Decreased Breath Sounds, Expiration Cardiovascular: Regular Rate, Rhythm, No Murmur Capillary Refill: Less Than 3 Seconds Peripheral Pulses: 2+ Radial Pulses (R), 2+ Radial Pulses (L) Gastrointestinal: normal bowel sounds, non tender, soft, no organomegaly Extremity: Normal Range of Motion, Non Tender Neurologic/Psychiatric: No Motor/Sensory Deficits, Other (sedated on vent ) Skin: Normal Color, Warm/Dry Lymphatic: No Adenopathy Results Lab Laboratory Tests 06/22/18 03:40 06/23/18 03:55 Assessment/Plan Assessment/Plan Acute respiratory failure secondary to pneumonia r/o alveolar hemorrhage s/p bronchoscopy - - Eraxis -IVF-- increase 75cc/hr -Tube feeds with pulmicare. - HOLD for weaning -Await viramontes cultures -Sedation: fentanyl Propofol Ativan pulmonary hemorrhage-- - improved after holding plavix -repeat CT of chest COPDAE -DuoNeb Q4 UTI with Sepsis -Continue Abx therapy -Currently on Rocephin and azithromycin Metabolic encephalopathy -sedation is on hold HX of depression -- I question if pt is BiPolar Acute renal failure -improved -present on admission HX of CVA and TPA in the past -CT on admission was negative DVT/GI PPX -Continue protonix QUINN VELÁZQUEZ DO Jun 23, 2018 04:33
[2018-06-23 04:37] LABS: ANISOCYTOSIS SLIGHT; BAND NEUTROPHILS 0 %; BASOPHILS % (MANUAL) 0 %; BUN/CREATININE RATIO 45; CALCIUM 9.5 MG/DL (8.5-10.1); CARBON DIOXIDE 23 MMOL/L (21-32); CHLORIDE 103 MMOL/L (98-107); CREATININE SERUM 0.76 MG/DL (0.60-1.30); EOSINOPHILS % (MANUAL) 0 %; GFR ESTIMATED > 60; GLUCOSE 163 MG/DL (70-105); LYMPHOCYTES % (MANUAL) 5 %; MAGNESIUM 2.7 MG/DL (1.8-2.4); METAMYELOCYTES % 1 %; MONOCYTES % (MANUAL) 7 %; NEUTROPHILS % (MANUAL) 86 %; PHOSPHORUS 3.8 MG/DL (2.3-4.7); POTASSIUM 3.9 MMOL/L (3.6-5.0); REACTIVE LYMPHOCYTES 1 %; SODIUM 141 MMOL/L (135-145)
[2018-06-23] MEDS: CATHETER FLUSH 10 ML SYR IV SCH ×3 (05:53→22:06)
[2018-06-23] MEDS: MAGNESIUM 1 GM/100 ML IVPB 100 ML IV SCH (05:53)
[2018-06-23] MEDS: POTASSIUM CL 10MEQ/50ML IVPB 50 ML IV SCH (05:53)
[2018-06-23] MEDS: KCL 20 MEQ TAB (K-DUR) PO SCH (05:54)
--- NOTE | 2018-06-23 07:45 | Diagnostic Imaging Report ---
PROCEDURE: CT chest without contrast. TECHNIQUE: Multiple contiguous axial images were obtained through the chest without the use of intravenous contrast. INDICATION: Pneumonia and dyspnea Comparison is made to study of 06/14/2018. There is residual diffuse groundglass density throughout the lungs with improved aeration bilaterally since previous study. There maybe small amount of bilateral pleural fluid. There is no evidence of pneumothorax or new consolidation. No evidence of mediastinal hematoma or fluid collection. Upper abdominal sections reveal dominant cyst in both kidneys. Impression: Overall improvement in aeration of the lungs with residual groundglass edema and/or pneumonitis bilaterally. No focal consolidation or evidence of adverse change is identified. Dictated by: Dictated on workstation # [id number]
--- NOTE | 2018-06-23 07:51 | Diagnostic Imaging Report ---
PROCEDURE: CT head without contrast. TECHNIQUE: Multiple contiguous axial images were obtained through the brain without the use of intravenous contrast. INDICATION: Dyspnea, pneumonia and altered mental status. CT HEAD: Multiple contiguous axial CT images of the head were obtained. FINDINGS: Ventricles and sulci are within normal limits for size. There is no intracranial hemorrhage identified. There is no abnormal mass effect or shift of midline structures. IMPRESSION: Unremarkable CT of the head. Dictated by: Dictated on workstation # [id number]
--- NOTE | 2018-06-23 09:55 | Physical Therapy Evaluation ---
PT Evaluation-General Medical Diagnosis Admission Date Jun 12, 2018 at 19:02 Medical Diagnosis: acture respiratory failure Onset Date: Jun 12, 2018 Therapy Diagnosis Therapy Diagnosis: severely debilitated/weakness Height/Weight Height (Feet): 5 Height (Inches): 6.00 Weight (Pounds): 208 Weight (Ounces): 9.0 Precautions Precautions/Isolations: Droplet Isolation, Fall Prevention, Pressure Ulcer Weight Bear Status Right Lower Extremity: Right Full Weight Bearing Left Lower Extremity: Left Full Weight Bearing Referral Physician: Ashley Reason for Referral: Evaluation/Treatment Medical History Pertinent Medical History: COPD, CVA, GERD, HTN, Rheumatoid Arthritis Current History has been on mechanical ventilator for several days and is currently on BiPap. Patient is minimally alert and unable to follow simple direction Reviewed History: Yes Social History Home: Single Level Current Living Status: Alone Prior/Core FIM Prior Level of Function Functional [place] Measure 0=Not Assessed/NA 4=Minimal Assistance 1=Total Assistance 5=Supervision or Setup 2=Maximal Assistance 6=Modified [place] 3=Moderate Assistance 7=Complete [place] Bed Mobility: 7 Transfers (B,C,W/C) (FIM): 7 Gait: 7 PT Evaluation-Current Subjective Patient is sedated in bed and unable to follow simple direction. Pain Numeric Pain Scale: 0-No Pain Location: No Pain Reported Objective Patient Orientation: Listless Problem Solving: Poor Attachments: Oxygen (bipap), Rosales Catheter, IV ROM/Strength ROM Lower Extremities bilateral LE WNL Strength Lower Extremities 0/5 grossly bilaterally due to sedation/weakness Integumentary/Posture Integumentary refer to nursing notes Bladder Incontinence: Rosales Cath Neuromuscular (Tone, Coordination, Reflexes) severely diminished Sensory Vision: Unable to Assess Hearing: Unable to Assess Transfers Functional [place] Measure 0=Not Assessed/NA 4=Minimal Assistance 1=Total Assistance 5=Supervision or Setup 2=Maximal Assistance 6=Modified [place] 3=Moderate Assistance 7=Complete [place] Treatment PROM bilateral LE in supine Assessment/Needs 63 y.o. female, will be seen by skilled PT to increase activity as patient improves with alertness and ability to follow direction. From a PT standpoint, patient is currently unsafe to tolerate OOB activity unless staff utilizes Dong lift for up in chair. RN notified. Rehab Potential: Guarded PT Short Term Goals Short Term Goals Time Frame: Jul 02, 2018 Transfers (B,C,W/C) (FIM): 2 PT Skilled Nursing Goals Garage Laborer Goals PT Garage Laborer Goals Time Frame: Aug 06, 2018 Transfers (B,C,W/C) (FIM): 4 Gait (FIM): 2 Gait distance (FIM): 6=210-54 ft Distance: 75' Gait Level of Assist: 4 Gait Assistive Device: FWW PT Plan Problem List Problem List: Activity Tolerance, Functional Strength, Safety, Balance, Gait, Transfer, Bed Mobility Treatment/Plan Treatment Plan: Continue Plan of Care Treatment Plan: Bed Mobility, Education, Functional Activity [place], Functional Strength, Gait, Safety, Therapeutic Exercise, Transfers Treatment Duration: Aug 06, 2018 Frequency: 6 times per week (increase as patient improves) Estimated Hrs Per Day: .5 hour per day Patient and/or Family Agrees t: Yes Discharge Recommendations Therapy D/C Recommendations: Acute Rehab, [facility] Placement, Care Home (TCU/NH) Time/GCodes Time In: 858 Time Out: 915 Total Billed Treatment Time: 17 Total Billed Treatment 1 visit EVMod 17 min FIDEL JARQUIN PT Jun 23, 2018 09:55
[2018-06-23] MEDS: ANIDULAFUNGIN INJECTION 100 MG in NS (IVPB) 100 ML IV SCH (09:57)
[2018-06-23] MEDS: methylPREDNISolone 40 MG/ML (Solu-MEDROL) VIAL IV SCH ×2 (09:57→20:23)
[2018-06-23] MEDS: LEVOFLOXACIN 750 MG/150 ML IV 150 ML IV SCH (09:57)
[2018-06-23] MEDS: PANTOPRAZOLE 40 MG (PROTONIX) VIAL IV SCH (09:57)
[2018-06-23] MEDS: amLODIPine 10 MG (NORVASC) TAB NG SCH (10:15)
[2018-06-23] MEDS: FLUTICASONE NASAL SPRAY (FLONASE) 16 GM BTL NS SCH (10:15)
[2018-06-23] MEDS: ARTIFICIAL TEARS OINT (LACRI-LUBE) 3.5 GM TUBE OU SCH ×3 (10:15→20:16)
[2018-06-23] MEDS: DOCUSATE SODIUM 10 MG/ML 10 ML UDC (COLACE) PO SCH ×2 (10:16→20:16)
[2018-06-23] MEDS: meTOprolol TARTRATE 25 MG (LOPRESSOR) TABLET PO SCH ×2 (10:16→20:16)
[2018-06-23] MEDS: LORATADINE (CLARITIN) 10 MG TAB PO SCH (10:16)
[2018-06-23] MEDS: POLYETHYLENE GLYCOL 17 GM (MIRALAX) PACK PO SCH ×2 (10:16→20:16)
--- NOTE | 2018-06-23 10:30 | Occupational Therapy Eval ---
OT Evaluation-General/PLF Medical Diagnosis Admission Date Jun 12, 2018 at 19:02 Medical Diagnosis: acture respiratory failure Onset Date: Jun 12, 2018 Therapy Diagnosis Therapy Diagnosis: Weakness/Decreased ADL skills Height/Weight Height (Feet): 5 Height (Inches): 6.00 Weight (Pounds): 208 Weight (Ounces): 9.0 Precautions Precautions/Isolations: Droplet Isolation, Fall Prevention, Pressure Ulcer Safety Interventions: Reorient-PRN Weight Bear Status Weight Bearing Restriction: Weight Bearing/Tolerated Referral Physician: Ashley Referral Reason: Activity Tolerance, Self Care, Evaluation/Treatment, Strengthening/ROM Medical History Pertinent Medical History: CAD, COPD, CVA, GERD, HTN, Rheumatoid Arthritis Additional Medical History Depression, IBS, asthma Current History Pt. has become weaker in recent days at home, had several falls. Came to ER with SOA. Found to be septic. Reviewed History: Yes Social History Home: Single Level Current Living Status: Alone ADL-Prior Level of Function ADL PLOF Comments Pt. is unable to answer any questions at this time. OT Current Status Subjective Pt. is able to look at OT on command approximately 25% of time. Appearance Pt. in bed on bi-pap. Nursing comes into room to remove bi-pap and place nasal cannula. Mental Status/Objective Attachments: [place] Catheter, IV, Oxygen ADL-Treatment Functional [place] Measure 0=Not Assessed/NA 4=Minimal Assistance 1=Total Assistance 5=Supervision or Setup 2=Maximal Assistance 6=Modified [place] 3=Moderate Assistance 7=Complete IndependenceIRFPAI Quality Coding Scale 6 Independent with activity with or without an assistive device 5 Patient requires set up or clean up by helper. Patient completes activity by themselves 4 Supervision or touching assist (CGA). [place] provide cues , steadying assist 3 The helper provides less than half the effort to complete the activity 2 The helper provides more than half the effort to complete the activity 1 Dependent. The helper does all the effort to complete an activity 7 Patient refused to complete or attempt activity 9 The patient did not perform the activity before the current illness or injury 88 Not attempted due to Medical conditions or safety concerns Transfers (B, C, W/C) (FIM): 1 Other Treatments Pt. in bed. Nursing is okay with OT assessing pt. Pt. unable to demonstrate any active movement, but is able to turn her eyes slightly to the left and look at OT on command. Note that mouth is open. OT assessed and performed UE ROM. Resistance with extension in all planes. Completed gentle shoulder flexion, elbow flexion, and finger flexion. Attempted to engage pt. in activity of washing hands. Pt.unable to participate. OT completed gentle finger and hand cleanse with wash cloths, and then retrograde massage with lotion. Will continue to monitor possible need for resting hands splints if pt. develops significant tone. Completed gentle neck ROM with turning head to left. Noted that head is in fixed downward flexion toward right side. Completed gentle hair brushing. Pt. unable to assist with this. Nursing assisted with bed mobility and positioning. OT positioned head with towels to more neutral position. Positioned pt. onto right side. All needs met. Will continue to monitor pt's progress and abilities to provide skilled care. Education OT Patient Education: Correct positioning, Exercise program, Modified ADL techniques, Reviewed precautions, Rehab process, Transfer techniques Teaching Recipient: Patient Teaching Methods: Demonstration Response to Teaching: Unable to Return Demonstration OT Short Term Goals Short Term Goals Time Frame: Jul 07, 2018 Grooming(FIM): 3 Transfers (B,C,W/C) (FIM): 2 Additional Short Term Goals: 1-Demonstrate ADL Tasks, 2-Verbalize Understanding , 3-ImproveStrength/[place] 1=Demonstrate adherence to instructed precautions during ADL tasks. 2=Patient will verbalize/demonstrate understanding of assistive devices/ modifications for ADL. 3=Patient will improve strength/tolerance for activity to enable patient to perform ADL's. OT Curriculum And Assessment Director Goals Curriculum And Assessment Director Goals Time Frame: Jul 21, 2018 Grooming(FIM): 4 Upper Body Dressing(FIM): 4 Lower Body Dressing(FIM): 3 Toileting(FIM): 4 Transfers (B,C,W/C) (FIM): 4 Toilet/Commode Transfer(FIM): 4 Additional Goals: 1-Demonstrate ADL Tasks, 2-Verbalize Understanding, 3- ImproveStrength/[place] 1=Demonstrate adherence to instructed precautions during ADL tasks. 2=Patient will verbalize/demonstrate understanding of assistive devices/ modifications for ADL. 3=Patient will improve strength/tolerance for activity to enable patient to perform ADL's. OT Education/Plan Problem List/Assessment Assessment: Decreased Activ Tolerance, Decreased Safety Aware, Decreased UE Strength, Dependent Transfers, Edema, Impaired Bed Mobility, Impaired Cognition , Impaired Coordination, Impaired Funct Balance, Impaired I ADL's, Impaired Self -Care Skills, Restricted Funct UE ROM Discharge Recommendations Plan/Recommendations: Continue POC Therapy D/C Recommendations: 24 hr Supervision Comment Equipment needs and discharge location to be determined. Treatment Plan/Plan of Care Treatment,Training & Education: Yes Patient would benefit from OT for education, treatment and training to promote independence in ADL's, mobility, safety and/or upper extremity function for ADL' s. Plan of Care: ADL Retraining, Caregiver Training, Cognitive Retraining, Functional Mobility, UE Funct Exercise/Act, UE Neuromus Re-Ed/Coord Treatment Duration: Jul 21, 2018 Frequency: 5 times per week Estimated Hrs Per Day: .5 hour per day Agreement: Yes Rehab Potential: Guarded Time/GCodes Start Time: 09:45 Stop Time: 10:10 Total Time Billed (hr/min): 25 Billed Treatment Time 1, EVH x 15minutes, ADL x 10minutes GLADIS COFFMAN OT Jun 23, 2018 10:30
--- NOTE | 2018-06-23 10:52 | Diagnostic Imaging Report ---
EXAM: Frontal chest obtained at 4:25 hours a.m. COMPARISON: 06/22/2018 FINDINGS: The patient has been extubated compared to the prior study. The left-sided PICC line remains in place with tip in the SVC. This is minimal infiltrate or atelectasis in the left base. There is improved aeration of the right base compared to the prior study. IMPRESSION: Status post extubation. Minimal infiltrate or atelectasis in the left base. Improved aeration of the right base compared to the prior study. There is no pneumothorax or pleural fluid. Dictated by: Dictated on workstation # [id number]
--- NOTE | 2018-06-23 11:46 | Progress Note (SOAP) ---
Subjective Subjective/Events-last exam Extubated. Minimally responsive, following with eyes but does not answer questions. Is not moving right arm much at all and is leaning to right and has some possible mouth droop to right. Review of Systems Date Seen by Provider: Jun 23, 2018 Time Seen by Provider: 10:55 Objective Exam Last Set of Vital Signs Vital Signs Date Time Temp Pulse Resp B/P (MAP) Pulse Ox O2 Delivery O2 Flow Rate FiO2 06/23/18 11:00 111 36 164/103 (123) 99 Nasal Cannula 2.00 06/23/18 04:00 98.0 06/23/18 04:00 45 Capillary Refill : Greater Than 3 SecondsLess Than 3 Seconds I&O Intake and Output 06/23/18 00:00 Intake Total 850 ml Output Total 2945 ml Balance -2095 ml Intake Oral 0 ml IV Total 730 ml Other 120 ml Output Urine Total 2645 ml Gastric Drainage Total 300 ml # Bowel Movements 6 General: Alert Lungs: Clear to Auscultation, Normal Air Movement Heart: Regular Rate, No Murmurs Neuro: Other (Apparent right side of mouth drooping, right arm does not drop completely when raised, but does have poor muscle tone with nearly immediate drop when released) Psych/Mental Status: Other (looks at me and follows me with eyes, but does not follow any commands or answer questions.) Results/Procedures Lab Laboratory Tests 06/22/18 11:55: Glucometer 136H 06/22/18 17:31: Glucometer 130H 06/23/18 00:21: Glucometer 178H 06/23/18 03:55: White Blood Count 14.8H, Red Blood Count 4.68, Hemoglobin 14.1, Hematocrit 42, Mean Corpuscular Volume 89, Mean Corpuscular Hemoglobin 30, Mean Corpuscular Hemoglobin Concent 34, Red Cell Distribution Width 16.4H, Platelet Count 213, Mean Platelet Volume 9.5, Neutrophils (%) (Auto) 88H, Lymphocytes (%) (Auto) 6L , Monocytes (%) (Auto) 6, Eosinophils (%) (Auto) 0, Basophils (%) (Auto) 0, Neutrophils # (Auto) 13.0H, Lymphocytes # (Auto) 0.9L, Monocytes # (Auto) 0.8, Eosinophils # (Auto) 0.0, Basophils # (Auto) 0.0, Neutrophils % (Manual) 86, Lymphocytes % (Manual) 5, Monocytes % (Manual) 7, Eosinophils % (Manual) 0, Basophils % (Manual) 0, Metamyelocytes % 1, Band Neutrophils 0, Reactive Lymphocytes 1, Anisocytosis SLIGHT, Sodium Level 141, Potassium Level 3.9, Chloride Level 103, Carbon Dioxide Level 23, Anion Gap 15H, Blood Urea Nitrogen 34H, Creatinine 0.76, Estimat Glomerular Filtration Rate > 60, BUN/Creatinine Ratio 45, Glucose Level 163H, Calcium Level 9.5, Phosphorus Level 3.8, Magnesium Level 2.7H Microbiology 06/12/18 Blood Culture - Final, Complete No growth 06/15/18 Mycobacterial Culture - Preliminary, Resulted See Comments 06/12/18 Urine Culture - Final, Complete Enterococcus faecalis Radiology Date of Exam: 06/12/18 CT HEAD WO-R/O STROKE EXAM: CT HEAD WO-R/O STROKE INDICATION: Leg weakness. Altered mental status. Slurred speech. COMPARISON: CT head without contrast from 08/24/2017. FINDINGS: No intracranial hemorrhage, mass effect, hydrocephalus, or extra-axial fluid collections. No CT evidence of acute infarction. Osseous structures are intact. The visualized paranasal sinuses and mastoids are unremarkable. IMPRESSION: No acute intracranial CT findings. Date of Exam: 06/12/18 CHEST 1 VIEW, AP/PA ONLY INDICATION: Wheezing. EXAMINATION: Portable erect AP chest at 4:42 p.m. FINDINGS: The heart is enlarged and has increased in size since the prior exam of 04/17/2018. Furthermore, in the interval since the prior study, alveolar/interstitial pulmonary infiltrates have developed in the right suprahilar region, the left upper lung and the left midlung. These findings could be secondary to pulmonary edema, pneumonia/atelectasis or a combination of all three. The periphery of the right lung is generally clear and there is no significant pleural effusion in either lung base. The mediastinum is not widened. The osseous structures are intact. There is a loop recorder device again noted overlying the left thorax. IMPRESSION: The appearance of the chest has worsened since the prior study as the heart has increased in size and alveolar/interstitial pulmonary infiltrates have developed, bilaterally, particularly on the left. These abnormal parenchymal densities may be related to pulmonary edema, pneumonia, atelectasis or a combination of all three. A followup exam would be recommended for continued evaluation. Date of Exam: 06/13/18 CHEST 1 VIEW, AP/PA ONLY INDICATION: Followup of infiltrates with shortness of breath. FINDINGS: Bilateral dense infiltrates noted in the upper lobes bilaterally. Moderate perihilar infiltrate noted in the left lower lobe as well. Right lower lung appears clear. The heart is mildly enlarged and has increased in size since 04/17/2018. No evidence of pleural effusion. No pneumothorax. IMPRESSION: 1. Increasing cardiac size. 2. Bilateral infiltrates present increasing in density since previous exam. These could represent inflammatory infiltrates or increasing pulmonary edema. Assessment/Plan Assessment/Plan (1) Severe sepsis Status: Acute Assessment & Plan: 06/13 -secondary to multi-lobar PNA -hypotension, improved after fluid bolus; febrile to 101.5, tachycardia and tachypnea -hydrocortisone 100 mg IV in ED, will start on prednisone (pt with solumedrol allergy)-CRP >15 06/14 -CXR again shows multi-lobar PNA -Day 3 Rocephin, Azithromycin -sputum culture + yeast, + e coli -urine cx + enterococcus -sensitivities indicate both sensitive to Levaquin, will change to 750 Levaquin daily, add Diflucan for yeast 06/15 -worsening CXR, concern for ARDS -Azithromycin, Levaquin -stop Diflucan, change to Eraxis -stop prednisone, change to Solu-Medrol 125 mg Q8H - pt allergy is burning skin and eye irritation, at this point it is felt that the potential benefit outweighs the risks; will monitor closely for signs of allergic rxn to medication -bronch this AM -blood cx with no growth to date - attempted to contact family; message left for daughter Kaycee that pt is critically ill and her overall prognosis is guarded at best; the next 48 hours will be critical 06/16 -no improvement in CXR -Eraxis, Azithromycin, Levaquin -Solu-medrol 125 mg Q8H; pt with no sign of intolerance or allergic reaction -blood cx with no growth to date -Day 4 abx 06/17 -some improvement in CXR from previous -Eraxis, Levaquin -Day 5 abx -Solu- medrol 125 mg Q8H Day 3 - no signs of intolerance or allergy -blood cx no growth to date 06/18- management per Dr. Bautista, no change in antimicrobials or clinical status 06/19- continue Eraxis, levofloxacin and solumedrol 06/[address] Bautista 06/22- decreased solumedrol dose (2) ARDS (adult respiratory distress syndrome) Status: Acute Assessment & Plan: 06/17 -Vent Day 4 -Solu-Medrol 125 mg Q8H - Day 3 -some improvement in CXR this AM 06/18- stable with minimal improvement, working on weaning sedation 06/[address] Bautista, anticipating weaning later this week 06/20 trying to wean sedation today 06/21- continue weaning, hopeful for extubation this pm per Dr. Bautista 06/22- d/c sedation per Dr. Bautista, working toward extubation 06/23 extubated yesterday, on supplemental O2 by nasal cannula (3) Multilobar lung infiltrate Status: Acute Assessment & Plan: See severe sepsis and ARDS plan (4) Acute respiratory failure with hypoxia Status: Acute Assessment & Plan: 06/15 -patient now on ventilator day 2, FiO2 at 50% -requiring a significant amount of sedation to tolerate vent, currently on both precedex and propofol -ABG this AM pH 7.33, pCO2 46, pO2 158 -worsening CXR, concerning for ARDS 06/16 -Vent Day 3, FiO2 35% -pt requiring large amounts of sedation and still tolerating turning and suctioning very poorly -given 5mg morphine prior to turning and suctioning with less severe hypotension ; pt was previously having systolic pressure drops into the 70s, when morphine given first patient did drop systolic pressure into the upper 80's but very briefly then returned to baseline -will order 5 mg morphine Q1H PRN turning and suctioning, with the hope that patient can wean down on some of her other high dose sedation, currently on propofol, precedex and fentanyl; fentanyl bolus prior to cares did not seem to help, patient did much better with morphine bolus 06/17 -continues to have copious secretions, but tolerating suctioning better with morphine prior -precedex off this AM, propofol and fentanyl gtt 06/18- continues on FiO2 30% and with excessive secretions and agitation requiring Precedex, propofol and fentanyl 06/19 FiO2 increased to 35% this am 06/20- working on beginning of weaning per Dr. Bautista 06/23 extubated and improved respiratory status (5) Hyperglycemia, drug-induced Status: Acute Assessment & Plan: 06/17 -HgbA1C checked on admission, <6.5 and patient without existing diagnosis of diabetes -elevated glucose secondary to high dose steroids -glucose over last 24 hours 166 - 141 - 158 - 172 - 181 -Pulmacort started today -NovoLog sliding scale B Q6 hours (6) Hypertension Status: Chronic Assessment & Plan: 06/17 -patient on home dose of lopressor 50 mg BID, HR is 60 -over last ~24 hours patient with elevated blood pressures -add 10 mg amlodipine per NG, as suspect HR will not tolerate increased beta danuta dose 06/20- BP rising, on metoprolol 25 mg BID and amlodipin 10 mg daily, will increase metoprolol to 50 mg BID. HR in 80s today. 06/21- improved Qualifiers: Qualified Codes: I10 - Essential (primary) hypertension (7) Acute renal injury due to sepsis Status: Resolved (8) Rheumatoid arthritis Status: Chronic Qualifiers: Qualified Codes: M06.9 - Rheumatoid arthritis, unspecified (9) Elevated LFTs Status: Resolved (10) Hemoptysis Status: Acute Assessment & Plan: 06/13 -called by nursing staff last night that patient was coughing up thick bloody sputum -pt with RA and on Xeljanz -will check Quanterferon Gold for TB and send sputum for culture -place in isolation in negative pressure room until TB ruled out, although chances are low -pt states she had TB test before starting Xeljanz that was negative 06/14 -results of TB testing pending, pt to remain in isolation until result obtained 06/15 -preliminary results returned last night - negative for TB; pt taken out of TB isolation -bronch this AM by Dr. Bautista shows large amount of old bloody sputum but no active bleeding -consider pulmonary hemorrhage; will hold plavix and lovenox 06/16 -continues to have blood tinged, copious secretions 06/23 mycobacterial culture remains negative (11) Anemia Qualifiers: Qualified Codes: D64.9 - Anemia, unspecified (12) Cardiomegaly Status: Acute (13) Grade II diastolic dysfunction (14) Tricuspid regurgitation Status: Chronic Qualifiers: Qualified Codes: I36.1 - Nonrheumatic tricuspid (valve) insufficiency (15) Pulmonary hypertension Status: Acute (16) Sleep apnea Status: Chronic Qualifiers: Qualified Codes: G47.33 - Obstructive sleep apnea (adult) (pediatric) (17) Coronary artery disease Status: Chronic Qualifiers: Qualified Codes: I25.10 - Atherosclerotic heart disease of [place] coronary artery without angina pectoris (18) Anxiety Status: Chronic (19) Bacteria in urine Status: Resolved (20) Chronic pain Status: Chronic Assessment & Plan: 06/15 -pt normally on tramadol and gabapentin for chronic pain -will place on fentanyl gtt, as she is requiring large amounts of precedex and propofol and it could potential be secondary to some of her chronic pain 06/17 -fentanyl gtt, morphine PRN 06/22 fentanyl and morphine d/c to aid in decreasing sedation for extubation Qualifiers: Qualified Codes: G89.29 - Other chronic pain (21) Tobacco abuse Status: Chronic (22) Weakness Status: Acute (23) Elevated d-dimer Status: Acute Assessment & Plan: 06/14 -2.11 on admission --> 2.95 -CTA pending -doppler of LE shows no evidence of DVT 06/15 -CTA showed no evidence of PE (24) History of stroke Status: Chronic (25) Obesity (BMI 30-39.9) Status: Chronic (26) Hyponatremia Status: Resolved (27) Altered mental status Status: Acute Assessment & Plan: Minimally responsive after extubation, tracking but not talking and minimal movement. CT head without acute findings. May be related to heavy sedation previously used. Qualifiers: Qualified Codes: R41.82 - Altered mental status, unspecified (28) DVT prophylaxis Status: Acute Assessment & Plan: 40 mg Lovenox SQ daily 06/15 -chemoprophylaxis on hold due to concern for pulmonary hemorrhage; SCDS in place 06/22- no evidence of hemorrhage on bronchoscopy, discussed with Dr. Bautista and resumed enoxaparin yesterday Clinical Quality Measures DVT/VTE Risk/Contraindication: VTE Present on Admission: No Risk Factor Score Per Nursin RFS Level Per Nursing on Admit: 4+=Very High Contraindications-Pharm: Other *list below* Other: bronch this AM shows significant amount of bloody sputum, concern for pulmonary hemorrhage; holding all blood thinners; pt has SCDs on. Pneumonia: Pseudomonal Risk: COPD GLENN PEREZ MD Jun 23, 2018 11:46 am
[2018-06-23] MEDS: ENOXAPARIN 40 MG/0.4 ML (LOVENOX) SYR SQ SCH (13:51)
--- NOTE | 2018-06-23 15:31 | ST Dysphagia Evaluation ---
Speech Evaluation-General Medical Diagnosis acture respiratory failure Onset Date: Jun 12, 2018 Therapy Diagnosis Therapy Diagnosis: Dysphagia Precautions Precautions/Isolations: Aspiration, Droplet Isolation, Fall Prevention, Pressure Ulcer Referral Referring Physician: Lata Robins Reason for Referral: Evaluation/Treatment Medical History Pertinent Medical History: CAD, COPD, CVA, GERD, HTN, Rheumatoid Arthritis Reviewed History: Yes Social History Current Living Status: Alone Speech PLF/Current-Dysphagia Subjective Pt in bed....alert but not responsive. Cognitive Status unable to assess. Oral Motor Skills Dentition: Edentalous Ability to Follow Directions: Unable Pt currently NPO. Oral Expression Ability: Unable Dysphagia Evaluation Consistencies Presented: Thin Liquid (pt aspirated 2/3 times for thin liquid.) , Pureed Oral Phase: Absent Oral Transit (for pureed texture.) Pharyngeal Phase: Reduced Laryngeal Elevation Dietary Recommendations: NPO Liquid Recommendations: NPO Dysphagia Evaluation Summary Pt dysphagic for consistencies attempt. Pt had possible aspiration on thin liquids 2/3 trials. Pureed texture placed in mouth but pt made no attempt to swallow. Had to use toothette to clear residue out of mouth. Informed nursing pt need to be NPO until she is more alert and can follow directions. Speech-Plan Patient/Family Goals Patient/Family Goals: NA Treatment Plan Speech Therapy Treatment Plan: Continue Plan of Care (continue to follow to determine appropriate time for PO trials) Not a candidate for PO presently. Frequency: 5 times per week Estimated Hrs Per Day: Other (check on pt's status on a daily basis) Rehab Potential: Guarded Time Speech Therapy Time In: 10:00 Speech Therapy Time Out: 10:25 Total Billed Time: 25 Billed Treatment Time [facility]TIMUR RANDY ST Jun 23, 2018 15:30
[2018-06-23] MEDS: ATORVASTATIN 20 MG (LIPITOR) TABLET PO SCH (20:16)
[2018-06-23] MEDS ORDERED: morphine INJ 4 MG/ML 1 ML (VIAL/SYRINGE) ONE (21:52)
[2018-06-23] MEDS ORDERED: morphine INJ 4 MG/ML 1 ML (VIAL/SYRINGE) IV ONE (22:00)
[2018-06-24] VITALS (24 sets, daily range): BP systolic 127–178; BP diastolic 69–111
[2018-06-24] MEDS: RT-ALBUTEROL/IPRATROPIUM 3 ML (DUONEB) VIAL INH SCH ×6 (01:00→22:29)
[2018-06-24 04:20] LABS: BASOPHILS % (AUTO) 0 % (0-10); EOSINOPHILS % (AUTO) 0 % (0-10); HEMATOCRIT 37 % (35-52); HEMOGLOBIN 12.6 G/DL (11.5-16.0); LYMPHOCYTES % (AUTO) 10 % (12-44); MEAN CORPUSCULAR HEMOGLOBIN 30 PG (25-34); MEAN CORPUSCULAR HGB CONC 34 G/DL (32-36); MEAN CORPUSCULAR VOLUME 90 FL (80-99); MEAN PLATELET VOLUME 9.9 FL (7.4-10.4); MONOCYTES # (AUTO) 0.9 X 10^3 (0.0-1.0); MONOCYTES % (AUTO) 9 % (0-12); NEUTROPHILS # (AUTO) 7.9 X 10^3 (1.8-7.8); NEUTROPHILS % (AUTO) 81 % (42-75); PLATELET COUNT 212 10^3/uL (130-400); RED BLOOD COUNT 4.15 10^6/uL (4.35-5.85); RED CELL DISTRIBUTION WIDTH 15.9 % (10.0-14.5); WHITE BLOOD COUNT 9.7 10^3/uL (4.3-11.0)
[2018-06-24 04:31] LABS: BUN/CREATININE RATIO 38; CALCIUM 9.1 MG/DL (8.5-10.1); CARBON DIOXIDE 24 MMOL/L (21-32); CHLORIDE 107 MMOL/L (98-107); CREATININE SERUM 0.74 MG/DL (0.60-1.30); GFR ESTIMATED > 60; GLUCOSE 158 MG/DL (70-105); MAGNESIUM 2.4 MG/DL (1.8-2.4); PHOSPHORUS 3.8 MG/DL (2.3-4.7); POTASSIUM 4.3 MMOL/L (3.6-5.0); SODIUM 142 MMOL/L (135-145)
[2018-06-24] MEDS: CATHETER FLUSH 10 ML SYR IV SCH ×3 (05:12→22:33)
[2018-06-24] MEDS: MAGNESIUM 1 GM/100 ML IVPB 100 ML IV SCH (05:12)
[2018-06-24] MEDS: KCL 20 MEQ TAB (K-DUR) PO SCH (05:12)
[2018-06-24] MEDS: POTASSIUM CL 10MEQ/50ML IVPB 50 ML IV SCH (05:12)
[2018-06-24] MEDS: inSUlin ASPART (NovoLOG) 1 UNIT/0.01 ML (CHARGE PER UNIT) SC SCH ×4 (05:13→18:42)
--- NOTE | 2018-06-24 05:56 | Pulmonary Progress Note ---
Subjective Time Seen by Provider: 06:07 Subjective/Events-last exam Sedation has been D/C'd however pt is still not responding appropriately. Sepsis Event Evaluation Height, Weight, BMI Height: 5'6.00" Weight: 208lbs. 9.0oz. 94.240993aq; 37.8 BMI Method:Stated Exam Exam Vital Signs Date Time Temp Pulse Resp B/P (MAP) Pulse Ox O2 Delivery O2 Flow Rate FiO2 06/24/18 03:55 100 NIV CPAP 30 06/24/18 03:55 98.2 06/24/18 03:00 104 35 145/81 (102) 100 NIV CPAP 30.00 06/24/18 02:00 103 34 132/77 (95) 99 NIV CPAP 30.00 06/24/18 01:04 101 30 99 30.00 06/24/18 01:00 95 06/24/18 01:00 102 32 145/83 (103) 99 NIV CPAP 30.00 06/24/18 00:00 99 35 149/83 (105) 98 NIV CPAP 30.00 06/24/18 00:00 96 NIV CPAP 30 06/23/18 23:41 98.6 06/23/18 23:00 100 33 151/80 (103) 99 NIV CPAP 30.00 06/23/18 22:00 99 17 158/103 (121) 93 NIV CPAP 30.00 06/23/18 21:35 93 37 99 30.00 06/23/18 21:00 99 38 148/85 (106) 92 NIV CPAP 30.00 06/23/18 20:00 120 42 186/100 (128) 93 Nasal Cannula 2.00 06/23/18 20:00 96 Nasal Cannula 2.00 06/23/18 20:00 98.5 06/23/18 19:00 107 06/23/18 19:00 105 32 165/37 (79) 98 Nasal Cannula 2.00 06/23/18 18:54 96 Nasal Cannula 1.00 06/23/18 18:00 110 23 163/84 (110) 95 Nasal Cannula 2.00 06/23/18 17:00 110 37 162/81 (108) 93 Nasal Cannula 2.00 06/23/18 16:00 96 Nasal Cannula 3.00 06/23/18 16:00 111 34 158/83 (108) 93 Nasal Cannula 2.00 06/23/18 15:00 111 24 157/88 (111) 96 Nasal Cannula 2.00 06/23/18 14:41 98 Nasal Cannula 2.00 06/23/18 14:00 109 27 154/87 (109) 94 Nasal Cannula 2.00 06/23/18 13:00 113 28 175/94 (121) 99 Nasal Cannula 2.00 06/23/18 13:00 116 06/23/18 12:00 96 Nasal Cannula 3.00 06/23/18 12:00 98.2 06/23/18 12:00 105 37 156/95 (115) 98 Nasal Cannula 2.00 06/23/18 11:00 111 36 164/103 (123) 99 Nasal Cannula 2.00 06/23/18 10:55 Nasal Cannula 2.00 06/23/18 10:50 100 Nasal Cannula 2.00 06/23/18 10:00 106 16 120/74 (89) 97 NIV CPAP 30.00 06/23/18 09:00 98 35 140/106 (117) 99 NIV CPAP 40.00 06/23/18 08:00 97 32 160/85 (110) 100 NIV CPAP 40.00 06/23/18 08:00 95 NIV CPAP 30.00 06/23/18 07:00 105 12 152/73 (99) 100 NIV CPAP 40.00 06/23/18 07:00 98.4 06/23/18 07:00 105 06/23/18 06:36 95 32 100 30.00 06/23/18 06:00 93 34 135/65 (88) 100 NIV CPAP 40.00 I & O 06/24/18 07:00 Intake Total 0 ml Output Total 1170 ml Balance -1170 ml Height & Weight Height: 5'6.00" Weight: 208lbs. 9.0oz. 94.081308md; 37.8 BMI Method:Stated General Appearance: No Apparent Distress, WD/WN HEENT: PERRL/EOMI, Pharynx Normal Neck: Non Tender, Supple Respiratory: Normal Breath Sounds, Crackles, Decreased Breath Sounds, Expiration Cardiovascular: Regular Rate, Rhythm, No Murmur Capillary Refill: Less Than 3 Seconds Peripheral Pulses: 2+ Radial Pulses (R), 2+ Radial Pulses (L) Gastrointestinal: normal bowel sounds, non tender, soft, no organomegaly Extremity: Normal Range of Motion, Non Tender Neurologic/Psychiatric: Alert (Not following all commands. ), No Motor/Sensory Deficits Skin: Normal Color, Warm/Dry Lymphatic: No Adenopathy Results Lab Laboratory Tests 06/23/18 03:55 06/24/18 03:55 Assessment/Plan Assessment/Plan Acute respiratory failure secondary to pneumonia r/o alveolar hemorrhage s/p bronchoscopy - - Eraxis -IVF-- increase 75cc/hr -Await viramontes cultures Metabolic encephalopathy r/o acute CVA -- pt does have hx of CVA -Pt failed swallow eval -Will place NG tube for Benadryl precontrast treatment and TF after. -Check TSH T4, T3 -sedation has been on hold -CT of head w/o is negative -Pt has allergy to contrast. -She still continues not to respond appropriately. -Will pretreat her for contrast allergy and do CTA of head and neck. pulmonary hemorrhage-- - improved after holding plavix -repeat CT of chest - appears much improved COPDAE -DuoNeb Q4 UTI with Sepsis -Continue Abx therapy HX of depression -- Acute renal failure -improved -present on admission HX of CVA and TPA in the past -CT on admission was negative DVT/GI PPX -Continue protonix QUINN VELÁZQUEZ DO Jun 24, 2018 05:56
[2018-06-24 06:38] LABS: FREE T4 (FREE THYROXINE) 1.08 NG/DL (0.70-1.48)
[2018-06-24] MEDS: diphenhydrAMINE 50 MG/ML INJ (BENADRYL) IV SCH ×3 (06:56→13:00)
[2018-06-24] MEDS: LACTATED RINGERS 1,000 ML IV SCH ×2 (07:28→22:44)
--- NOTE | 2018-06-24 07:41 | Diagnostic Imaging Report ---
INDICATION: Shortness of air. COMPARISON: 06/23/2018. FINDINGS: Stable left PICC. Visualized lungs remain clear. No pleural effusion or pneumothorax. Heart is normal in size. IMPRESSION: Stable exam without adverse development. Dictated by: Dictated on workstation # [id number]
[2018-06-24] MEDS ORDERED: diphenhydrAMINE 12.5 MG/5 ML UDC (BENADRYL) PO SCH (08:00)
[2018-06-24] MEDS: DOCUSATE SODIUM 10 MG/ML 10 ML UDC (COLACE) PO SCH ×2 (08:32→22:33)
[2018-06-24] MEDS: amLODIPine 10 MG (NORVASC) TAB NG SCH (08:32)
[2018-06-24] MEDS: LORATADINE (CLARITIN) 10 MG TAB PO SCH (08:32)
[2018-06-24] MEDS: ANIDULAFUNGIN INJECTION 100 MG in NS (IVPB) 100 ML IV SCH (08:32)
[2018-06-24] MEDS: PANTOPRAZOLE 40 MG (PROTONIX) VIAL IV SCH (08:33)
[2018-06-24] MEDS: LEVOFLOXACIN 750 MG/150 ML IV 150 ML IV SCH (08:33)
[2018-06-24] MEDS: methylPREDNISolone 40 MG/ML (Solu-MEDROL) VIAL IV SCH ×2 (08:33→22:32)
[2018-06-24] MEDS: RANITIDINE IV SCH ×4 (08:40→14:00)
[2018-06-24] MEDS: NS IV SCH ×4 (08:40→14:00)
[2018-06-24] MEDS: ARTIFICIAL TEARS OINT (LACRI-LUBE) 3.5 GM TUBE OU SCH ×3 (09:00→22:33)
[2018-06-24] MEDS: FLUTICASONE NASAL SPRAY (FLONASE) 16 GM BTL NS SCH (09:00)
[2018-06-24] MEDS: POLYETHYLENE GLYCOL 17 GM (MIRALAX) PACK PO SCH ×2 (09:00→22:33)
[2018-06-24] MEDS ORDERED: FAMOTIDINE 20MG/2ML IV (PEPCID) IV SCH (09:00)
[2018-06-24] MEDS: meTOprolol TARTRATE 25 MG (LOPRESSOR) TABLET PO SCH ×2 (09:00→22:32)
--- NOTE | 2018-06-24 09:02 | Physical Therapy Daily Note ---
PT Daily Note-Current Subjective eyes closed, unresponsive to verbal or tactile stimuli Pain Location: No Pain Reported Mental Status Patient Orientation: Unresponsive Attachments: SCD's, Oxygen, IV Transfers Functional [place] Measure 0=Not Assessed/NA 4=Minimal Assistance 1=Total Assistance 5=Supervision or Setup 2=Maximal Assistance 6=Modified [place] 3=Moderate Assistance 7=Complete IndependenceIRFPAI Quality Coding Scale 6 Independent with activity with or without an assistive device 5 Patient requires set up or clean up by helper. Patient completes activity by themselves 4 Supervision or touching assist (CGA). [place] provide cues , steadying assist 3 The helper provides less than half the effort to complete the activity 2 The helper provides more than half the effort to complete the activity 1 Dependent. The helper does all the effort to complete an activity 7 Patient refused to complete or attempt activity 9 The patient did not perform the activity before the current illness or injury 88 Not attempted due to Medical conditions or safety concerns max assist all rolling etc Weight Bearing Right Lower Extremity: Right Full Weight Bearing Left Lower Extremity: Left Full Weight Bearing Exercises Supine Ex: Ankle pumps (HC stretches 3 x 20s ea), Rolling, Heel Slides (max assist), Straight leg raise (passive), Hip abd/add (passive) Supine Reps: 12 D1 D2 U&L extremities, PROM, UEs and LEs Assessment Current Status: Fair Progress PT Short Term Goals Short Term Goals Time Frame: Jul 02, 2018 Transfers (B,C,W/C) (FIM): 2 PT Assisted Goals Assisted Goals PT Dealership Manager Goals Time Frame: Aug 06, 2018 Transfers (B,C,W/C) (FIM): 4 Gait (FIM): 2 Gait distance (FIM): 4=136-98 ft Distance: 75' Gait Level of Assist: 4 Gait Assistive Device: FWW PT Plan Treatment/Plan Treatment Plan: Continue Plan of Care Treatment Plan: Bed Mobility, Education, Functional Activity [place], Functional Strength, Gait, Safety, Therapeutic Exercise, Transfers Treatment Duration: Aug 06, 2018 Frequency: 6 times per week (increase as patient improves) Estimated Hrs Per Day: .5 hour per day Patient and/or Family Agrees t: Yes Time/GCodes Time In: 830 Time Out: 853 Total Billed Treatment Time: 23 Total Billed Treatment 1,EX23m G Codes Necessary: No ALEA CONDON ANESTHESIOLOGIST Jun 24, 2018 09:02
--- NOTE | 2018-06-24 09:42 | Occupational Ther Daily Note ---
OT Current Status-Daily Note Subjective Upon arrival, nrsg leaving room. Nrsg states that pt resists when she does not like something. Pt did not respond during OT session to touch or verbal. Mental Status/Objective Patient Orientation: Unable to Assess, Non-Verbal/Aphasic, Unresponsive Functional [place] Measure 0=Not Assessed/NA 4=Minimal Assistance 1=Total Assistance 5=Supervision or Setup 2=Maximal Assistance 6=Modified [place] 3=Moderate Assistance 7=Complete [place] Attachments: Rosales Catheter, IV, Oxygen, Telemetry ADL-Treatment Completed PROM on B UE's to maintain good UE ROM and edema massage to decrease edema in B UE's. Tightness noted at end ranges. Continue to monitor edema and UE ROM. After therapy, pt lying in bed with call light within reach. All needs met in room. OT Short Term Goals Short Term Goals Time Frame: Jul 07, 2018 Grooming(FIM): 3 Transfers (B,C,W/C) (FIM): 2 Additional Short Term Goals: 1-Demonstrate ADL Tasks, 2-Verbalize Understanding , 3-ImproveStrength/[place] 1=Demonstrate adherence to instructed precautions during ADL tasks. 2=Patient will verbalize/demonstrate understanding of assistive devices/ modifications for ADL. 3=Patient will improve strength/tolerance for activity to enable patient to perform ADL's. OT Custodial Goals Environmental Remediation Consultant Goals Time Frame: Jul 21, 2018 Grooming(FIM): 4 Upper Body Dressing(FIM): 4 Lower Body Dressing(FIM): 3 Toileting(FIM): 4 Transfers (B,C,W/C) (FIM): 4 Toilet/Commode Transfer(FIM): 4 Additional Goals: 1-Demonstrate ADL Tasks, 2-Verbalize Understanding, 3- ImproveStrength/[place] 1=Demonstrate adherence to instructed precautions during ADL tasks. 2=Patient will verbalize/demonstrate understanding of assistive devices/ modifications for ADL. 3=Patient will improve strength/tolerance for activity to enable patient to perform ADL's. OT Education/Plan Discharge Recommendations Plan/Recommendations: Continue POC Treatment Plan/Plan of Care Patient would benefit from OT for education, treatment and training to promote independence in ADL's, mobility, safety and/or upper extremity function for ADL' s. Plan of Care: ADL Retraining, Caregiver Training, Cognitive Retraining, Functional Mobility, UE Funct Exercise/Act, UE Neuromus Re-Ed/Coord Treatment Duration: Jul 21, 2018 Frequency: 5 times per week Estimated Hrs Per Day: .5 hour per day Agreement: Yes Rehab Potential: Guarded Time/GCodes Start Time: 09:11 Stop Time: 09:29 Total Time Billed (hr/min): 18 Billed Treatment Time 1 visit-NM 1 (18 min) JEWEL MARCOS Jun 24, 2018 09:42
[2018-06-24] MEDS ORDERED: RECEIVED CONTRAST (Hold Metformin) IV SCH (10:00)
[2018-06-24] MEDS ORDERED: NS 250 ML (IVPB) BAG IV ONE (10:00)
[2018-06-24] MEDS ORDERED: IOHEXOL 350 MG/ML 100 ML (OMNIPAQUE 350) VIAL IV ONE (10:00)
--- NOTE | 2018-06-24 10:41 | Diagnostic Imaging Report ---
PROCEDURE: CT angiography of the head and CT angiography of the neck with and without contrast. TECHNIQUE: Contiguous noncontrast images were obtained from the skull base through the vertex. After intravenous contrast administration, helical CT angiography of the neck was performed. Source data was reformatted into multiple MIP projections. Delayed post contrast acquisition was also obtained. INDICATION: Unable to communicate. The study is performed to evaluate for stroke. FINDINGS: The precontrast portion of the study demonstrates ventricles and sulci to be within normal limits. No sulcal effacement is seen. There is no midline shift. No acute intra-axial or extra-axial hemorrhage is detected. The delayed postcontrast portions of the brain is without an enhancing lesion. The CTA portion of the study demonstrates both common carotid arteries to be widely patent. The carotid bifurcations are unremarkable. Bilateral internal carotid arteries are widely patent. The right and left middle cerebral arteries are unremarkable. No filling defect or thromboembolism is seen. There appears to be a hypoplastic right anterior cerebral artery. Left anterior cerebral artery is unremarkable without filling defect. Bilateral posterior cerebral arteries are unremarkable. There is a patent right posterior communicating artery, normal variant. The basilar is unremarkable. Bilateral vertebral arteries are patent with the right vertebral artery being dominant. IMPRESSION: Unremarkable CT angiogram of the head and neck. No thromboemboli are detected. Dictated by: Dictated on workstation # [id number]
[2018-06-24] MEDS: diphenhydrAMINE 12.5 MG/5 ML UDC (BENADRYL) PO SCH ×2 (12:17→15:00)
[2018-06-24] MEDS: ENOXAPARIN 40 MG/0.4 ML (LOVENOX) SYR SQ SCH (12:17)
--- NOTE | 2018-06-24 13:16 | Speech Therapy Progress Note ---
Therapy Progress Note Checked on pt today early afternoon. Pt sleeping. PT and OT reported that she was not alert for their therapy. Will continue to follow pt to determine appropriate time to attempt PO feeding. RIZWANA CONTRERAS Jun 24, 2018 13:16
--- NOTE | 2018-06-24 16:45 | Progress Note (SOAP) ---
Subjective Subjective/Events-last exam Afebrile, decreasing supplemental oxygen requirement, but remains nonverbal and not following commands in general. Review of Systems Date Seen by Provider: Jun 24, 2018 Time Seen by Provider: 10:23 Objective Exam Last Set of Vital Signs Vital Signs Date Time Temp Pulse Resp B/P (MAP) Pulse Ox O2 Delivery O2 Flow Rate FiO2 06/24/18 15:51 96 Nasal Cannula 3.00 06/24/18 15:00 99 20 127/78 (94) 06/24/18 03:55 30 06/24/18 03:55 98.2 Capillary Refill : Greater Than 3 SecondsLess Than 3 Seconds I&O Intake and Output 06/24/18 00:00 Intake Total 0 ml Output Total 1330 ml Balance -1330 ml Intake Oral 0 ml Output Urine Total 1330 ml # Bowel Movements 2 General: Alert, No Acute Distress Lungs: Clear to Auscultation, Normal Air Movement Heart: Regular Rate, No Murmurs Abdomen: Normal Bowel Sounds, Soft, No Tenderness Psych/Mental Status: Other (makes eye contact and tracks movement with eyes, but does not speak in response to questions) Results/Procedures Lab Laboratory Tests 06/23/18 17:01: Glucometer 138H 06/24/18 00:00: Glucometer 172H 06/24/18 03:55: White Blood Count 9.7, Red Blood Count 4.15L, Hemoglobin 12.6, Hematocrit 37, Mean Corpuscular Volume 90, Mean Corpuscular Hemoglobin 30, Mean Corpuscular Hemoglobin Concent 34, Red Cell Distribution Width 15.9H, Platelet Count 212, Mean Platelet Volume 9.9, Neutrophils (%) (Auto) 81H, Lymphocytes (%) (Auto) 10L , Monocytes (%) (Auto) 9, Eosinophils (%) (Auto) 0, Basophils (%) (Auto) 0, Neutrophils # (Auto) 7.9H, Lymphocytes # (Auto) 1.0, Monocytes # (Auto) 0.9, Eosinophils # (Auto) 0.0, Basophils # (Auto) 0.0, Sodium Level 142, Potassium Level 4.3, Chloride Level 107, Carbon Dioxide Level 24, Anion Gap 11, Blood Urea Nitrogen 28H, Creatinine 0.74, Estimat Glomerular Filtration Rate > 60, BUN /Creatinine Ratio 38, Glucose Level 158H, Calcium Level 9.1, Phosphorus Level 3.8, Magnesium Level 2.4, Thyroid Stimulating Hormone (TSH) 0.83, Free Thyroxine 1.08 06/24/18 12:01: Glucometer 154H Microbiology 06/12/18 Blood Culture - Final, Complete No growth 06/15/18 Mycobacterial Culture - Preliminary, Resulted See Comments 06/12/18 Urine Culture - Final, Complete Enterococcus faecalis Radiology Date of Exam: 06/12/18 CT HEAD WO-R/O STROKE EXAM: CT HEAD WO-R/O STROKE INDICATION: Leg weakness. Altered mental status. Slurred speech. COMPARISON: CT head without contrast from 08/24/2017. FINDINGS: No intracranial hemorrhage, mass effect, hydrocephalus, or extra-axial fluid collections. No CT evidence of acute infarction. Osseous structures are intact. The visualized paranasal sinuses and mastoids are unremarkable. IMPRESSION: No acute intracranial CT findings. Date of Exam: 06/12/18 CHEST 1 VIEW, AP/PA ONLY INDICATION: Wheezing. EXAMINATION: Portable erect AP chest at 4:42 p.m. FINDINGS: The heart is enlarged and has increased in size since the prior exam of 04/17/2018. Furthermore, in the interval since the prior study, alveolar/interstitial pulmonary infiltrates have developed in the right suprahilar region, the left upper lung and the left midlung. These findings could be secondary to pulmonary edema, pneumonia/atelectasis or a combination of all three. The periphery of the right lung is generally clear and there is no significant pleural effusion in either lung base. The mediastinum is not widened. The osseous structures are intact. There is a loop recorder device again noted overlying the left thorax. IMPRESSION: The appearance of the chest has worsened since the prior study as the heart has increased in size and alveolar/interstitial pulmonary infiltrates have developed, bilaterally, particularly on the left. These abnormal parenchymal densities may be related to pulmonary edema, pneumonia, atelectasis or a combination of all three. A followup exam would be recommended for continued evaluation. Date of Exam: 06/13/18 CHEST 1 VIEW, AP/PA ONLY INDICATION: Followup of infiltrates with shortness of breath. FINDINGS: Bilateral dense infiltrates noted in the upper lobes bilaterally. Moderate perihilar infiltrate noted in the left lower lobe as well. Right lower lung appears clear. The heart is mildly enlarged and has increased in size since 04/17/2018. No evidence of pleural effusion. No pneumothorax. IMPRESSION: 1. Increasing cardiac size. 2. Bilateral infiltrates present increasing in density since previous exam. These could represent inflammatory infiltrates or increasing pulmonary edema. Assessment/Plan Assessment/Plan (1) Severe sepsis Status: Acute Assessment & Plan: 06/13 -secondary to multi-lobar PNA -hypotension, improved after fluid bolus; febrile to 101.5, tachycardia and tachypnea -hydrocortisone 100 mg IV in ED, will start on prednisone (pt with solumedrol allergy)-CRP >15 06/14 -CXR again shows multi-lobar PNA -Day 3 Rocephin, Azithromycin -sputum culture + yeast, + e coli -urine cx + enterococcus -sensitivities indicate both sensitive to Levaquin, will change to 750 Levaquin daily, add Diflucan for yeast 06/15 -worsening CXR, concern for ARDS -Azithromycin, Levaquin -stop Diflucan, change to Eraxis -stop prednisone, change to Solu-Medrol 125 mg Q8H - pt allergy is burning skin and eye irritation, at this point it is felt that the potential benefit outweighs the risks; will monitor closely for signs of allergic rxn to medication -bronch this AM -blood cx with no growth to date - attempted to contact family; message left for daughter Kaycee that pt is critically ill and her overall prognosis is guarded at best; the next 48 hours will be critical 06/16 -no improvement in CXR -Eraxis, Azithromycin, Levaquin -Solu-medrol 125 mg Q8H; pt with no sign of intolerance or allergic reaction -blood cx with no growth to date -Day 4 abx 06/17 -some improvement in CXR from previous -Eraxis, Levaquin -Day 5 abx -Solu- medrol 125 mg Q8H Day 3 - no signs of intolerance or allergy -blood cx no growth to date 06/18- management per Dr. Bautista, no change in antimicrobials or clinical status 06/19- continue Eraxis, levofloxacin and solumedrol 06/[address] Bautista 06/22- decreased solumedrol dose 06/24- remains on Eraxis, levofloxacin and solumedrol 40 mg IV q12. (2) ARDS (adult respiratory distress syndrome) Status: Acute Assessment & Plan: 9/7 -Vent Day 4 -Solu-Medrol 125 mg Q8H - Day 3 -some improvement in CXR this AM 06/18- stable with minimal improvement, working on weaning sedation 06/[address] Bautista, anticipating weaning later this week 06/20 trying to wean sedation today 06/21- continue weaning, hopeful for extubation this pm per Dr. Bautista 06/22- d/c sedation per Dr. Bautista, working toward extubation 06/23 extubated yesterday, on supplemental O2 by nasal cannula 06/24 respiratory status stable with decreasing supplemental oxygen requirement (3) Multilobar lung infiltrate Status: Acute Assessment & Plan: See severe sepsis and ARDS plan (4) Acute respiratory failure with hypoxia Status: Acute Assessment & Plan: 06/15 -patient now on ventilator day 2, FiO2 at 50% -requiring a significant amount of sedation to tolerate vent, currently on both precedex and propofol -ABG this AM pH 7.33, pCO2 46, pO2 158 -worsening CXR, concerning for ARDS 06/16 -Vent Day 3, FiO2 35% -pt requiring large amounts of sedation and still tolerating turning and suctioning very poorly -given 5mg morphine prior to turning and suctioning with less severe hypotension ; pt was previously having systolic pressure drops into the 70s, when morphine given first patient did drop systolic pressure into the upper 80's but very briefly then returned to baseline -will order 5 mg morphine Q1H PRN turning and suctioning, with the hope that patient can wean down on some of her other high dose sedation, currently on propofol, precedex and fentanyl; fentanyl bolus prior to cares did not seem to help, patient did much better with morphine bolus 06/17 -continues to have copious secretions, but tolerating suctioning better with morphine prior -precedex off this AM, propofol and fentanyl gtt 06/18- continues on FiO2 30% and with excessive secretions and agitation requiring Precedex, propofol and fentanyl 06/19 FiO2 increased to 35% this am 06/20- working on beginning of weaning per Dr. Bautista 06/23 extubated and improved respiratory status (5) Hyperglycemia, drug-induced Status: Acute Assessment & Plan: 06/17 -HgbA1C checked on admission, <6.5 and patient without existing diagnosis of diabetes -elevated glucose secondary to high dose steroids -glucose over last 24 hours 166 - 141 - 158 - 172 - 181 -Pulmacort started today -NovoLog sliding scale B Q6 hours (6) Hypertension Status: Chronic Assessment & Plan: 06/17 -patient on home dose of lopressor 50 mg BID, HR is 60 -over last ~24 hours patient with elevated blood pressures -add 10 mg amlodipine per NG, as suspect HR will not tolerate increased beta danuta dose 06/20- BP rising, on metoprolol 25 mg BID and amlodipin 10 mg daily, will increase metoprolol to 50 mg BID. HR in 80s today. 06/21- improved Qualifiers: Qualified Codes: I10 - Essential (primary) hypertension (7) Acute renal injury due to sepsis Status: Resolved (8) Rheumatoid arthritis Status: Chronic Qualifiers: Qualified Codes: M06.9 - Rheumatoid arthritis, unspecified (9) Elevated LFTs Status: Resolved (10) Hemoptysis Status: Acute Assessment & Plan: 06/13 -called by nursing staff last night that patient was coughing up thick bloody sputum -pt with RA and on Xeljanz -will check Quanterferon Gold for TB and send sputum for culture -place in isolation in negative pressure room until TB ruled out, although chances are low -pt states she had TB test before starting Xeljanz that was negative 06/14 -results of TB testing pending, pt to remain in isolation until result obtained 06/15 -preliminary results returned last night - negative for TB; pt taken out of TB isolation -bronch this AM by Dr. Bautista shows large amount of old bloody sputum but no active bleeding -consider pulmonary hemorrhage; will hold plavix and lovenox 06/16 -continues to have blood tinged, copious secretions 06/24 mycobacterial culture remains negative (11) Anemia Qualifiers: Qualified Codes: D64.9 - Anemia, unspecified (12) Cardiomegaly Status: Acute (13) Grade II diastolic dysfunction (14) Tricuspid regurgitation Status: Chronic Qualifiers: Qualified Codes: I36.1 - Nonrheumatic tricuspid (valve) insufficiency (15) Pulmonary hypertension Status: Acute (16) Sleep apnea Status: Chronic Qualifiers: Qualified Codes: G47.33 - Obstructive sleep apnea (adult) (pediatric) (17) Coronary artery disease Status: Chronic Qualifiers: Qualified Codes: I25.10 - Atherosclerotic heart disease of [place] coronary artery without angina pectoris (18) Anxiety Status: Chronic (19) Bacteria in urine Status: Resolved (20) Chronic pain Status: Chronic Assessment & Plan: 06/15 -pt normally on tramadol and gabapentin for chronic pain -will place on fentanyl gtt, as she is requiring large amounts of precedex and propofol and it could potential be secondary to some of her chronic pain 06/17 -fentanyl gtt, morphine PRN 06/22 fentanyl and morphine d/c to aid in decreasing sedation for extubation Qualifiers: Qualified Codes: G89.29 - Other chronic pain (21) Tobacco abuse Status: Chronic (22) Weakness Status: Acute (23) Elevated d-dimer Status: Acute Assessment & Plan: 06/14 -2.11 on admission --> 2.95 -CTA pending -doppler of LE shows no evidence of DVT 06/15 -CTA showed no evidence of PE (24) History of stroke Status: Chronic (25) Obesity (BMI 30-39.9) Status: Chronic (26) Hyponatremia Status: Resolved (27) Altered mental status Status: Acute Assessment & Plan: Minimally responsive after extubation, tracking but not talking and minimal movement. CT head without acute findings. May be related to heavy sedation previously used. 06/24 minimal improvement even though off sedation for a couple of days. CTA head /neck pending. Qualifiers: Qualified Codes: R41.82 - Altered mental status, unspecified (28) DVT prophylaxis Status: Acute Assessment & Plan: 40 mg Lovenox SQ daily 06/15 -chemoprophylaxis on hold due to concern for pulmonary hemorrhage; SCDS in place 06/22- no evidence of hemorrhage on bronchoscopy, discussed with Dr. Bautista and resumed enoxaparin yesterday Clinical Quality Measures DVT/VTE Risk/Contraindication: VTE Present on Admission: No Risk Factor Score Per Nursin RFS Level Per Nursing on Admit: 4+=Very High Contraindications-Pharm: Other *list below* Other: bronch this AM shows significant amount of bloody sputum, concern for pulmonary hemorrhage; holding all blood thinners; pt has SCDs on. Pneumonia: Pseudomonal Risk: COPD GLENN PEREZ MD Jun 24, 2018 4:45 pm
[2018-06-24] MEDS: ATORVASTATIN 20 MG (LIPITOR) TABLET PO SCH (22:32)
[2018-06-24] MEDS ORDERED: morphine INJ 4 MG/ML 1 ML (VIAL/SYRINGE) IV ONE (23:45)
[2018-06-24] MEDS ORDERED: morphine INJ 10 MG/ML 1ML (SYR OR VIAL) ONE (23:59)
[2018-06-25] VITALS (14 sets, daily range): BP systolic 118–174; BP diastolic 73–98
[2018-06-25] MEDS: RT-ALBUTEROL/IPRATROPIUM 3 ML (DUONEB) VIAL INH SCH ×6 (02:36→22:12)
[2018-06-25 04:34] LABS: BASOPHILS % (AUTO) 0 % (0-10); EOSINOPHILS % (AUTO) 0 % (0-10); HEMATOCRIT 37 % (35-52); HEMOGLOBIN 12.1 G/DL (11.5-16.0); LYMPHOCYTES # (AUTO) 0.7 X 10^3 (1.0-4.0); LYMPHOCYTES % (AUTO) 9 % (12-44); MEAN CORPUSCULAR HEMOGLOBIN 30 PG (25-34); MEAN CORPUSCULAR HGB CONC 33 G/DL (32-36); MEAN CORPUSCULAR VOLUME 90 FL (80-99); MEAN PLATELET VOLUME 9.3 FL (7.4-10.4); MONOCYTES # (AUTO) 0.6 X 10^3 (0.0-1.0); MONOCYTES % (AUTO) 8 % (0-12); NEUTROPHILS # (AUTO) 6.1 X 10^3 (1.8-7.8); NEUTROPHILS % (AUTO) 83 % (42-75); PLATELET COUNT 251 10^3/uL (130-400); WHITE BLOOD COUNT 7.4 10^3/uL (4.3-11.0)
[2018-06-25 04:57] LABS: BUN/CREATININE RATIO 30; CALCIUM 9.1 MG/DL (8.5-10.1); CARBON DIOXIDE 22 MMOL/L (21-32); CHLORIDE 109 MMOL/L (98-107); CREATININE SERUM 0.69 MG/DL (0.60-1.30); GFR ESTIMATED > 60; GLUCOSE 179 MG/DL (70-105); MAGNESIUM 2.3 MG/DL (1.8-2.4); PHOSPHORUS 3.7 MG/DL (2.3-4.7); POTASSIUM 3.7 MMOL/L (3.6-5.0); SODIUM 142 MMOL/L (135-145)
--- NOTE | 2018-06-25 06:18 | Pulmonary Progress Note ---
Subjective Time Seen by Provider: 06:15 Subjective/Events-last exam PT still lethargic. Respiratory curry she is doing well. Sepsis Event Evaluation Height, Weight, BMI Height: 5'6.00" Weight: 210lbs. 1.0oz. 95.300215tv; 37.8 BMI Method:Stated Exam Exam Vital Signs Date Time Temp Pulse Resp B/P (MAP) Pulse Ox O2 Delivery O2 Flow Rate FiO2 06/25/18 04:00 94 Nasal Cannula 1.00 06/25/18 04:00 101 30 149/96 (113) 96 Nasal Cannula 1.00 06/25/18 04:00 98.7 06/25/18 03:00 100 28 118/80 (93) 91 Nasal Cannula 1.00 06/25/18 02:37 97 Nasal Cannula 3.00 06/25/18 02:00 98 44 128/85 (99) 97 Nasal Cannula 1.00 06/25/18 01:00 93 35 147/79 (101) 93 Nasal Cannula 1.00 06/25/18 01:00 99 06/25/18 00:00 98.8 06/25/18 00:00 94 Nasal Cannula 1.00 06/24/18 22:30 95 Nasal Cannula 3.00 06/24/18 22:00 109 33 132/75 (94) 94 Nasal Cannula 1.00 06/24/18 21:00 108 28 144/79 (100) 97 Nasal Cannula 1.00 06/24/18 20:00 98.3 06/24/18 20:00 94 Nasal Cannula 1.00 06/24/18 20:00 94 16 127/72 (90) 98 Nasal Cannula 1.00 06/24/18 19:00 109 31 143/90 (107) 95 Nasal Cannula 1.00 06/24/18 19:00 109 06/24/18 18:35 96 Nasal Cannula 3.00 06/24/18 18:00 111 30 145/91 (109) 96 Nasal Cannula 1.00 06/24/18 17:00 109 28 136/85 (102) 95 Nasal Cannula 1.00 06/24/18 16:00 100 27 129/73 (91) 97 Nasal Cannula 1.00 06/24/18 16:00 94 Nasal Cannula 1.00 06/24/18 16:00 98.0 06/24/18 15:51 96 Nasal Cannula 3.00 06/24/18 15:00 99 20 127/78 (94) 96 Nasal Cannula 1.00 06/24/18 14:00 114 21 158/100 (119) 98 Nasal Cannula 1.00 06/24/18 13:00 112 27 161/92 (115) 99 Nasal Cannula 1.00 06/24/18 13:00 112 06/24/18 12:00 96 Nasal Cannula 1.00 06/24/18 12:00 105 29 168/111 (130) 99 Nasal Cannula 1.00 06/24/18 12:00 97.6 06/24/18 11:00 105 27 149/100 (116) 99 Nasal Cannula 1.00 06/24/18 10:35 93 Nasal Cannula 3.00 06/24/18 10:00 93 29 146/83 (104) 95 Nasal Cannula 1.00 06/24/18 09:00 109 46 178/101 (126) 93 Nasal Cannula 1.00 06/24/18 08:00 106 31 165/93 (117) 97 Nasal Cannula 1.00 06/24/18 08:00 96 Nasal Cannula 1.00 06/24/18 07:00 100 06/24/18 07:00 98.6 06/24/18 07:00 100 29 153/89 (110) 100 Nasal Cannula 1.00 06/24/18 06:53 99 Nasal Cannula 5.00 I & O 06/25/18 07:00 Intake Total 0 ml Output Total 1350 ml Balance -1350 ml Height & Weight Height: 5'6.00" Weight: 210lbs. 1.0oz. 95.378477le; 37.8 BMI Method:Stated General Appearance: No Apparent Distress, WD/WN HEENT: PERRL/EOMI, Pharynx Normal Neck: Non Tender, Supple Respiratory: Normal Breath Sounds, Crackles, Decreased Breath Sounds, Expiration Cardiovascular: Regular Rate, Rhythm, No Murmur Capillary Refill: Less Than 3 Seconds Peripheral Pulses: 2+ Radial Pulses (R), 2+ Radial Pulses (L) Gastrointestinal: normal bowel sounds, non tender, soft, no organomegaly Extremity: Normal Range of Motion, Non Tender Neurologic/Psychiatric: Alert (Not following all commands. ), No Motor/Sensory Deficits Skin: Normal Color, Warm/Dry Lymphatic: No Adenopathy Results Lab Laboratory Tests 06/24/18 03:55 06/25/18 04:26 Assessment/Plan Assessment/Plan Acute respiratory failure secondary to pneumonia r/o alveolar hemorrhage s/p bronchoscopy - - Eraxis -IVF-- 75cc/hr -Await viramontes cultures Metabolic encephalopathy r/o acute CVA -- pt does have hx of CVA -Check CMP, ammonia, and repeat ABG -Pt failed swallow eval -Start TF per NG tube -TSH T4, - are normal -sedation has been on hold -CT of head /neck with contrast is negative pulmonary hemorrhage-- - improved after holding plavix -repeat CT of chest - appears much improved COPDAE -DuoNeb Q4 UTI with Sepsis -improved HX of depression -- Acute renal failure -improved -present on admission HX of CVA and TPA in the past -CT on admission was negative DVT/GI PPX -Continue protonix QUINN VELÁZQUEZ DO Jun 25, 2018 06:17
[2018-06-25 06:39] LABS: ABG BASE EXCESS -0.5 MMOL/L (-2.5-2.5); ABG OXYGEN SATURATION 92 % (94-100); ABG PCO2 30 MMHG (35-45); ABG PH 7.49 (7.37-7.43); ABG PO2 57 MMHG (79-93); ABG TCO2 23.5 MMOL/L (21.0-31.0)
[2018-06-25 06:40] LABS: ALLENS TEST POSITIVE; INSPIRED O2 21L; PATIENT TEMP 98.3; VENTILATOR NO
[2018-06-25] MEDS: inSUlin ASPART (NovoLOG) 1 UNIT/0.01 ML (CHARGE PER UNIT) SC SCH ×4 (06:43→18:40)
[2018-06-25] MEDS: KCL 20 MEQ TAB (K-DUR) PO SCH (06:43)
[2018-06-25] MEDS: POTASSIUM CL 10MEQ/50ML IVPB 50 ML IV SCH (06:43)
[2018-06-25] MEDS: CATHETER FLUSH 10 ML SYR IV SCH ×3 (06:43→20:33)
[2018-06-25] MEDS: MAGNESIUM 1 GM/100 ML IVPB 100 ML IV SCH (06:43)
[2018-06-25] MEDS: PANTOPRAZOLE 40 MG (PROTONIX) VIAL IV SCH (09:52)
[2018-06-25] MEDS: ANIDULAFUNGIN INJECTION 100 MG in NS (IVPB) 100 ML IV SCH (09:52)
[2018-06-25] MEDS: methylPREDNISolone 40 MG/ML (Solu-MEDROL) VIAL IV SCH ×2 (09:52→20:32)
[2018-06-25] MEDS: amLODIPine 10 MG (NORVASC) TAB NG SCH (09:53)
[2018-06-25] MEDS: meTOprolol TARTRATE 25 MG (LOPRESSOR) TABLET PO SCH ×2 (09:53→20:33)
[2018-06-25] MEDS: DOCUSATE SODIUM 10 MG/ML 10 ML UDC (COLACE) PO SCH ×2 (09:53→20:31)
[2018-06-25] MEDS: LORATADINE (CLARITIN) 10 MG TAB PO SCH (09:53)
[2018-06-25] MEDS: FLUTICASONE NASAL SPRAY (FLONASE) 16 GM BTL NS SCH (09:53)
[2018-06-25] MEDS: ARTIFICIAL TEARS OINT (LACRI-LUBE) 3.5 GM TUBE OU SCH (09:54)
[2018-06-25] MEDS: POLYETHYLENE GLYCOL 17 GM (MIRALAX) PACK PO SCH ×2 (09:54→20:32)
[2018-06-25 10:17] LABS: ALANINE AMINOTRANSFERASE 36 U/L (0-55); ALBUMIN 3.5 GM/DL (3.2-4.5); ALKALINE PHOSPHATASE 62 U/L (40-136); AMMONIA 27 UMOL/L (11-32); BILIRUBIN,TOTAL 0.9 MG/DL (0.1-1.0); BUN/CREATININE RATIO 31; CALCIUM 9.1 MG/DL (8.5-10.1); CARBON DIOXIDE 21 MMOL/L (21-32); CHLORIDE 108 MMOL/L (98-107); CREATININE SERUM 0.67 MG/DL (0.60-1.30); GFR ESTIMATED > 60; GLUCOSE 153 MG/DL (70-105); POTASSIUM 3.3 MMOL/L (3.6-5.0); SODIUM 141 MMOL/L (135-145); TOTAL PROTEIN 6.2 GM/DL (6.4-8.2)
--- NOTE | 2018-06-25 10:19 | Diagnostic Imaging Report ---
Indication: Dyspnea. Comparison: 06/24/2018. Findings: Stable left PICC. Enteric tube now courses into the stomach and terminates in the fundus. The lungs are clear. No pleural effusion or pneumothorax. Stable cardiomegaly. Impression: 1. Well-positioned support devices. 2. No adverse development. Dictated by: Dictated on workstation # [id number]
--- NOTE | 2018-06-25 11:58 | Physical Therapy Daily Note ---
PT Daily Note-Current Subjective Pt laying Supine in bed after Nurse repositions pt upon arrival. Pt nods head in agreement for PT. Mental Status Patient Orientation: Person, Unresponsive Attachments: NG Tube, SCD's, Oxygen, IV Transfers Functional [place] Measure 0=Not Assessed/NA 4=Minimal Assistance 1=Total Assistance 5=Supervision or Setup 2=Maximal Assistance 6=Modified [place] 3=Moderate Assistance 7=Complete IndependenceIRFPAI Quality Coding Scale 6 Independent with activity with or without an assistive device 5 Patient requires set up or clean up by helper. Patient completes activity by themselves 4 Supervision or touching assist (CGA). [place] provide cues , steadying assist 3 The helper provides less than half the effort to complete the activity 2 The helper provides more than half the effort to complete the activity 1 Dependent. The helper does all the effort to complete an activity 7 Patient refused to complete or attempt activity 9 The patient did not perform the activity before the current illness or injury 88 Not attempted due to Medical conditions or safety concerns Weight Bearing Right Lower Extremity: Right Full Weight Bearing Left Lower Extremity: Left Full Weight Bearing Exercises Supine Ex: Ankle pumps, Quad Set, Straight leg raise, Hip abd/add Supine Reps: 20 Treatments EXPENSE ANALYST completed PROM for both UE & LE while pt tried to assist. Pt was awake but nonverbal. Assessment Current Status: Fair Progress Pt is more alert/awake today although still PROM is all that could be completed. PT Short Term Goals Short Term Goals Time Frame: Jul 02, 2018 Transfers (B,C,W/C) (FIM): 2 PT Fpc Goals Clipper Counters Goals PT Clipper Counters Goals Time Frame: Aug 06, 2018 Transfers (B,C,W/C) (FIM): 4 Gait (FIM): 2 Gait distance (FIM): 9=231-03 ft Distance: 75' Gait Level of Assist: 4 Gait Assistive Device: FWW PT Plan Problem List Problem List: Activity Tolerance, Functional Strength, Safety, Balance, Gait, Transfer, Bed Mobility, ROM Treatment/Plan Treatment Plan: Continue Plan of Care Treatment Plan: Bed Mobility, Education, Functional Activity [place], Functional Strength, Gait, Safety, Therapeutic Exercise, Transfers Treatment Duration: Aug 06, 2018 Frequency: 6 times per week (increase as patient improves) Estimated Hrs Per Day: .5 hour per day Patient and/or Family Agrees t: Yes Safety Risks/Education Patient Education: Correct Positioning, Safety Issues Teaching Recipient: Patient, Family Teaching Methods: Discussion Response to Teaching: Unable to Comprehend Time/GCodes Time In: 1105 Time Out: 1125 Total Billed Treatment Time: 20 Total Billed Treatment 1, EX (20m) G Codes Necessary: OMID Murguia EXPENSE ANALYST Jun 25, 2018 11:58
--- NOTE | 2018-06-25 13:36 | Progress Note (SOAP) ---
Subjective Subjective/Events-last exam Pt improved some. Per RN more alert and will blink eyes for yes/no and follow commands most of the time. Still not speaking. Review of Systems Date Seen by Provider: Jun 25, 2018 Time Seen by Provider: 07:15 Objective Exam Last Set of Vital Signs Vital Signs Date Time Temp Pulse Resp B/P (MAP) Pulse Ox O2 Delivery O2 Flow Rate FiO2 06/25/18 12:00 96 35 139/92 (108) 92 Nasal Cannula 1.00 06/25/18 04:00 98.7 06/24/18 03:55 30 Capillary Refill : Greater Than 3 SecondsLess Than 3 Seconds I&O Intake and Output 06/25/18 00:00 Intake Total 0 ml Output Total 1695 ml Balance -1695 ml Intake Oral 0 ml Output Urine Total 1695 ml General: Other (arousable, blinks eyes) Lungs: Other (intermittent rhonchi) Heart: Regular Rate Results/Procedures Lab Laboratory Tests 06/24/18 18:38: Glucometer 150H 06/25/18 04:26: White Blood Count 7.4, Red Blood Count 4.10L, Hemoglobin 12.1, Hematocrit 37, Mean Corpuscular Volume 90, Mean Corpuscular Hemoglobin 30, Mean Corpuscular Hemoglobin Concent 33, Red Cell Distribution Width 16.0H, Platelet Count 251, Mean Platelet Volume 9.3, Neutrophils (%) (Auto) 83H, Lymphocytes (%) (Auto) 9L , Monocytes (%) (Auto) 8, Eosinophils (%) (Auto) 0, Basophils (%) (Auto) 0, Neutrophils # (Auto) 6.1, Lymphocytes # (Auto) 0.7L, Monocytes # (Auto) 0.6, Eosinophils # (Auto) 0.0, Basophils # (Auto) 0.0, Sodium Level 142, Potassium Level 3.7, Chloride Level 109H, Carbon Dioxide Level 22, Anion Gap 11, Blood Urea Nitrogen 21H, Creatinine 0.69, Estimat Glomerular Filtration Rate > 60, BUN /Creatinine Ratio 30, Glucose Level 179H, Calcium Level 9.1, Phosphorus Level 3.7, Magnesium Level 2.3 06/25/18 06:24: Glucometer 162H 06/25/18 06:34: Blood Gas Puncture Site RIGHT RADIAL, Blood Gas Patient Temperature 98.3, Arterial Blood pH 7.49H, Arterial Blood Partial Pressure CO2 30L, Arterial Blood Partial Pressure O2 57L, Arterial Blood HCO3 23, Arterial Blood Total CO2 23.5, Arterial Blood Oxygen Saturation 92L, Arterial Blood Base Excess -0.5, Tanner Test POSITIVE, Blood Gas Ventilator Setting NO, Blood Gas Inspired Oxygen 21L 06/25/18 09:49: Sodium Level 141, Potassium Level 3.3L, Chloride Level 108H, Carbon Dioxide Level 21, Anion Gap 12, Blood Urea Nitrogen 21H, Creatinine 0.67, Estimat Glomerular Filtration Rate > 60, BUN/Creatinine Ratio 31, Glucose Level 153H, Calcium Level 9.1, Corrected Calcium 9.5, Total Bilirubin 0.9, Aspartate Amino Transf (AST/SGOT) 18, Alanine Aminotransferase (ALT/SGPT) 36, Alkaline Phosphatase 62, Ammonia 27, Total Protein 6.2L, Albumin 3.5 Microbiology 06/12/18 Blood Culture - Final, Complete No growth 06/15/18 Mycobacterial Culture - Preliminary, Resulted See Comments 06/12/18 Urine Culture - Final, Complete Enterococcus faecalis Radiology Date of Exam: 06/12/18 CT HEAD WO-R/O STROKE EXAM: CT HEAD WO-R/O STROKE INDICATION: Leg weakness. Altered mental status. Slurred speech. COMPARISON: CT head without contrast from 08/24/2017. FINDINGS: No intracranial hemorrhage, mass effect, hydrocephalus, or extra-axial fluid collections. No CT evidence of acute infarction. Osseous structures are intact. The visualized paranasal sinuses and mastoids are unremarkable. IMPRESSION: No acute intracranial CT findings. Date of Exam: 06/12/18 CHEST 1 VIEW, AP/PA ONLY INDICATION: Wheezing. EXAMINATION: Portable erect AP chest at 4:42 p.m. FINDINGS: The heart is enlarged and has increased in size since the prior exam of 04/17/2018. Furthermore, in the interval since the prior study, alveolar/interstitial pulmonary infiltrates have developed in the right suprahilar region, the left upper lung and the left midlung. These findings could be secondary to pulmonary edema, pneumonia/atelectasis or a combination of all three. The periphery of the right lung is generally clear and there is no significant pleural effusion in either lung base. The mediastinum is not widened. The osseous structures are intact. There is a loop recorder device again noted overlying the left thorax. IMPRESSION: The appearance of the chest has worsened since the prior study as the heart has increased in size and alveolar/interstitial pulmonary infiltrates have developed, bilaterally, particularly on the left. These abnormal parenchymal densities may be related to pulmonary edema, pneumonia, atelectasis or a combination of all three. A followup exam would be recommended for continued evaluation. Date of Exam: 06/13/18 CHEST 1 VIEW, AP/PA ONLY INDICATION: Followup of infiltrates with shortness of breath. FINDINGS: Bilateral dense infiltrates noted in the upper lobes bilaterally. Moderate perihilar infiltrate noted in the left lower lobe as well. Right lower lung appears clear. The heart is mildly enlarged and has increased in size since 04/17/2018. No evidence of pleural effusion. No pneumothorax. IMPRESSION: 1. Increasing cardiac size. 2. Bilateral infiltrates present increasing in density since previous exam. These could represent inflammatory infiltrates or increasing pulmonary edema. Assessment/Plan Assessment/Plan (1) Severe sepsis Status: Acute Assessment & Plan: 06/13 -secondary to multi-lobar PNA -hypotension, improved after fluid bolus; febrile to 101.5, tachycardia and tachypnea -hydrocortisone 100 mg IV in ED, will start on prednisone (pt with solumedrol allergy)-CRP >15 06/14 -CXR again shows multi-lobar PNA -Day 3 Rocephin, Azithromycin -sputum culture + yeast, + e coli -urine cx + enterococcus -sensitivities indicate both sensitive to Levaquin, will change to 750 Levaquin daily, add Diflucan for yeast 06/15 -worsening CXR, concern for ARDS -Azithromycin, Levaquin -stop Diflucan, change to Eraxis -stop prednisone, change to Solu-Medrol 125 mg Q8H - pt allergy is burning skin and eye irritation, at this point it is felt that the potential benefit outweighs the risks; will monitor closely for signs of allergic rxn to medication -bronch this AM -blood cx with no growth to date - attempted to contact family; message left for daughter Kaycee that pt is critically ill and her overall prognosis is guarded at best; the next 48 hours will be critical 06/16 -no improvement in CXR -Eraxis, Azithromycin, Levaquin -Solu-medrol 125 mg Q8H; pt with no sign of intolerance or allergic reaction -blood cx with no growth to date -Day 4 abx 06/17 -some improvement in CXR from previous -Eraxis, Levaquin -Day 5 abx -Solu- medrol 125 mg Q8H Day 3 - no signs of intolerance or allergy -blood cx no growth to date 06/18- management per Dr. Bautista, no change in antimicrobials or clinical status 06/19- continue Eraxis, levofloxacin and solumedrol 06/[address] Bautista 06/22- decreased solumedrol dose 06/24- remains on Eraxis, levofloxacin and solumedrol 40 mg IV q12. (2) Multilobar lung infiltrate Status: Acute Assessment & Plan: See severe sepsis and ARDS plan (3) Acute respiratory failure with hypoxia Status: Acute Assessment & Plan: 06/15 -patient now on ventilator day 2, FiO2 at 50% -requiring a significant amount of sedation to tolerate vent, currently on both precedex and propofol -ABG this AM pH 7.33, pCO2 46, pO2 158 -worsening CXR, concerning for ARDS 06/16 -Vent Day 3, FiO2 35% -pt requiring large amounts of sedation and still tolerating turning and suctioning very poorly -given 5mg morphine prior to turning and suctioning with less severe hypotension ; pt was previously having systolic pressure drops into the 70s, when morphine given first patient did drop systolic pressure into the upper 80's but very briefly then returned to baseline -will order 5 mg morphine Q1H PRN turning and suctioning, with the hope that patient can wean down on some of her other high dose sedation, currently on propofol, precedex and fentanyl; fentanyl bolus prior to cares did not seem to help, patient did much better with morphine bolus 06/17 -continues to have copious secretions, but tolerating suctioning better with morphine prior -precedex off this AM, propofol and fentanyl gtt 06/18- continues on FiO2 30% and with excessive secretions and agitation requiring Precedex, propofol and fentanyl 06/19 FiO2 increased to 35% this am 06/20- working on beginning of weaning per Dr. Bautista 06/23 extubated and improved respiratory status 06/25 - currently on 1L nc (4) Altered mental status Status: Acute Assessment & Plan: Minimally responsive after extubation, tracking but not talking and minimal movement. CT head without acute findings. May be related to heavy sedation previously used. 06/24 minimal improvement even though off sedation for a couple of days. CTA head /neck pending. 06/25 - CT head negative; slow improvement; appears to be secondary to metabolic encephalopathy Qualifiers: Qualified Codes: R41.82 - Altered mental status, unspecified (5) Hyperglycemia, drug-induced Status: Acute Assessment & Plan: 06/17 -HgbA1C checked on admission, <6.5 and patient without existing diagnosis of diabetes -elevated glucose secondary to high dose steroids -glucose over last 24 hours 166 - 141 - 158 - 172 - 181 -Pulmacort started today -NovoLog sliding scale B Q6 hours (6) Hypertension Status: Chronic Assessment & Plan: 06/17 -patient on home dose of lopressor 50 mg BID, HR is 60 -over last ~24 hours patient with elevated blood pressures -add 10 mg amlodipine per NG, as suspect HR will not tolerate increased beta danuta dose 06/20- BP rising, on metoprolol 25 mg BID and amlodipin 10 mg daily, will increase metoprolol to 50 mg BID. HR in 80s today. 06/21- improved Qualifiers: Qualified Codes: I10 - Essential (primary) hypertension (7) Rheumatoid arthritis Status: Chronic Qualifiers: Qualified Codes: M06.9 - Rheumatoid arthritis, unspecified (8) Hemoptysis Status: Acute Assessment & Plan: 06/13 -called by nursing staff last night that patient was coughing up thick bloody sputum -pt with RA and on Xeljanz -will check Quanterferon Gold for TB and send sputum for culture -place in isolation in negative pressure room until TB ruled out, although chances are low -pt states she had TB test before starting Xeljanz that was negative 06/14 -results of TB testing pending, pt to remain in isolation until result obtained 06/15 -preliminary results returned last night - negative for TB; pt taken out of TB isolation -bronch this AM by Dr. Bautista shows large amount of old bloody sputum but no active bleeding -consider pulmonary hemorrhage; will hold plavix and lovenox 06/16 -continues to have blood tinged, copious secretions 06/24 mycobacterial culture remains negative 06/25 - improving (9) Anemia Qualifiers: Qualified Codes: D64.9 - Anemia, unspecified (10) Cardiomegaly Status: Acute (11) Grade II diastolic dysfunction (12) Tricuspid regurgitation Status: Chronic Qualifiers: Qualified Codes: I36.1 - Nonrheumatic tricuspid (valve) insufficiency (13) Pulmonary hypertension Status: Acute (14) Sleep apnea Status: Chronic Qualifiers: Qualified Codes: G47.33 - Obstructive sleep apnea (adult) (pediatric) (15) Coronary artery disease Status: Chronic Qualifiers: Qualified Codes: I25.10 - Atherosclerotic heart disease of [place] coronary artery without angina pectoris (16) Anxiety Status: Chronic (17) Chronic pain Status: Chronic Qualifiers: Qualified Codes: G89.29 - Other chronic pain (18) Tobacco abuse Status: Chronic (19) Weakness Status: Acute (20) Elevated d-dimer Status: Acute Assessment & Plan: 06/14 -2.11 on admission --> 2.95 -CTA pending -doppler of LE shows no evidence of DVT 06/15 -CTA showed no evidence of PE (21) History of stroke Status: Chronic (22) Obesity (BMI 30-39.9) Status: Chronic (23) Hyponatremia Status: Resolved (24) DVT prophylaxis Status: Acute Assessment & Plan: 40 mg Lovenox SQ daily 06/15 -chemoprophylaxis on hold due to concern for pulmonary hemorrhage; SCDS in place 06/22- no evidence of hemorrhage on bronchoscopy, discussed with Dr. Bautista and resumed enoxaparin yesterday (25) ARDS (adult respiratory distress syndrome) Status: Resolved Assessment & Plan: 06/17 -Vent Day 4 -Solu-Medrol 125 mg Q8H - Day 3 -some improvement in CXR this AM 06/18- stable with minimal improvement, working on weaning sedation 06/[address] Bautista, anticipating weaning later this week 06/20 trying to wean sedation today 06/21- continue weaning, hopeful for extubation this pm per Dr. Bautista 06/22- d/c sedation per Dr. Bautista, working toward extubation 06/23 extubated yesterday, on supplemental O2 by nasal cannula 06/24 respiratory status stable with decreasing supplemental oxygen requirement 06/25 - currently on 1L NC (26) Acute renal injury due to sepsis Status: Resolved (27) Elevated LFTs Status: Resolved (28) Bacteria in urine Status: Resolved Clinical Quality Measures DVT/VTE Risk/Contraindication: VTE Present on Admission: No Risk Factor Score Per Nursin RFS Level Per Nursing on Admit: 4+=Very High Contraindications-Pharm: Other *list below* Other: bronch this AM shows significant amount of bloody sputum, concern for pulmonary hemorrhage; holding all blood thinners; pt has SCDs on. Pneumonia: Pseudomonal Risk: COPD CORTEZ CARREON DO Jun 25, 2018 13:35
[2018-06-25] MEDS: ENOXAPARIN 40 MG/0.4 ML (LOVENOX) SYR SQ SCH (14:16)
[2018-06-25] MEDS: LACTATED RINGERS 1,000 ML IV SCH (14:17)
[2018-06-25] MEDS: ACETAMINOPHEN 500 MG TAB (TYLENOL) PO PRN (20:32)
[2018-06-25] MEDS: ATORVASTATIN 20 MG (LIPITOR) TABLET PO SCH (20:32)
[2018-06-26] VITALS: BP 143/76
[2018-06-26] MEDS: inSUlin ASPART (NovoLOG) 1 UNIT/0.01 ML (CHARGE PER UNIT) SC SCH ×4 (00:39→17:02)
[2018-06-26] MEDS: RT-ALBUTEROL/IPRATROPIUM 3 ML (DUONEB) VIAL INH SCH ×6 (02:19→22:04)
[2018-06-26 04:00] VITALS: BP 147/70
[2018-06-26] MEDS: LACTATED RINGERS 1,000 ML IV SCH ×2 (04:32→13:33)
[2018-06-26] MEDS: CATHETER FLUSH 10 ML SYR IV SCH ×3 (06:09→22:00)
[2018-06-26 06:19] LABS: BASOPHILS % (AUTO) 0 % (0-10); EOSINOPHILS % (AUTO) 0 % (0-10); HEMATOCRIT 34 % (35-52); HEMOGLOBIN 11.5 G/DL (11.5-16.0); LYMPHOCYTES # (AUTO) 1.2 X 10^3 (1.0-4.0); LYMPHOCYTES % (AUTO) 13 % (12-44); MEAN CORPUSCULAR HEMOGLOBIN 31 PG (25-34); MEAN CORPUSCULAR HGB CONC 34 G/DL (32-36); MEAN CORPUSCULAR VOLUME 89 FL (80-99); MEAN PLATELET VOLUME 9.6 FL (7.4-10.4); MONOCYTES % (AUTO) 11 % (0-12); NEUTROPHILS # (AUTO) 6.7 X 10^3 (1.8-7.8); NEUTROPHILS % (AUTO) 76 % (42-75); PLATELET COUNT 274 10^3/uL (130-400); RED BLOOD COUNT 3.77 10^6/uL (4.35-5.85); RED CELL DISTRIBUTION WIDTH 15.6 % (10.0-14.5); WHITE BLOOD COUNT 8.9 10^3/uL (4.3-11.0)
[2018-06-26 06:36] LABS: BUN/CREATININE RATIO 30; CARBON DIOXIDE 22 MMOL/L (21-32); CHLORIDE 109 MMOL/L (98-107); CREATININE SERUM 0.66 MG/DL (0.60-1.30); GFR ESTIMATED > 60; GLUCOSE 192 MG/DL (70-105); PHOSPHORUS 3.3 MG/DL (2.3-4.7); POTASSIUM 3.3 MMOL/L (3.6-5.0); SODIUM 141 MMOL/L (135-145)
[2018-06-26 08:00] VITALS: BP 147/61
[2018-06-26] MEDS: methylPREDNISolone 40 MG/ML (Solu-MEDROL) VIAL IV SCH ×2 (09:04→21:52)
[2018-06-26] MEDS: PANTOPRAZOLE 40 MG (PROTONIX) VIAL IV SCH (09:04)
[2018-06-26] MEDS: ANIDULAFUNGIN INJECTION 100 MG in NS (IVPB) 100 ML IV SCH (09:04)
[2018-06-26] MEDS: LORATADINE (CLARITIN) 10 MG TAB PO SCH (09:05)
[2018-06-26] MEDS: meTOprolol TARTRATE 25 MG (LOPRESSOR) TABLET PO SCH ×2 (09:05→21:52)
[2018-06-26] MEDS: FLUTICASONE NASAL SPRAY (FLONASE) 16 GM BTL NS SCH (09:05)
[2018-06-26] MEDS: amLODIPine 10 MG (NORVASC) TAB NG SCH (09:05)
[2018-06-26] MEDS: DOCUSATE SODIUM 10 MG/ML 10 ML UDC (COLACE) PO SCH ×2 (09:05→21:51)
[2018-06-26] MEDS: POLYETHYLENE GLYCOL 17 GM (MIRALAX) PACK PO SCH ×2 (09:06→21:52)
[2018-06-26 12:13] VITALS: BP 126/60
[2018-06-26] MEDS: ENOXAPARIN 40 MG/0.4 ML (LOVENOX) SYR SQ SCH (13:32)
--- NOTE | 2018-06-26 13:39 | Progress Note (SOAP) ---
Subjective Subjective/Events-last exam Patient alert but continues to be non-verbal. Follows with her eyes but does not generally follow commands. Review of Systems Date Seen by Provider: Jun 26, 2018 Time Seen by Provider: 10:40 Objective Exam Last Set of Vital Signs Vital Signs Date Time Temp Pulse Resp B/P (MAP) Pulse Ox O2 Delivery O2 Flow Rate FiO2 06/26/18 12:13 98.2 97 22 126/60 (82) 94 Nasal Cannula 2.00 06/26/18 09:05 28 Capillary Refill : Less Than 3 SecondsLess Than 3 Seconds I&O Intake and Output 06/26/18 00:00 Intake Total 550 ml Output Total 1350 ml Balance -800 ml Intake Oral 0 ml Tube Feeding 300 ml Other 250 ml Output Urine Total 1350 ml # Bowel Movements 4 General: Alert, No Acute Distress Lungs: Clear to Auscultation Heart: Regular Rate Results/Procedures Lab Laboratory Tests 06/25/18 14:14: Glucometer 162H 06/25/18 18:33: Glucometer 161H 06/25/18 23:51: Glucometer 242H 06/26/18 05:33: Glucometer 211H 06/26/18 06:00: White Blood Count 8.9, Red Blood Count 3.77L, Hemoglobin 11.5, Hematocrit 34L, Mean Corpuscular Volume 89, Mean Corpuscular Hemoglobin 31, Mean Corpuscular Hemoglobin Concent 34, Red Cell Distribution Width 15.6H, Platelet Count 274, Mean Platelet Volume 9.6, Neutrophils (%) (Auto) 76H, Lymphocytes (%) (Auto) 13 , Monocytes (%) (Auto) 11, Eosinophils (%) (Auto) 0, Basophils (%) (Auto) 0, Neutrophils # (Auto) 6.7, Lymphocytes # (Auto) 1.2, Monocytes # (Auto) 1.0, Eosinophils # (Auto) 0.0, Basophils # (Auto) 0.0, Sodium Level 141, Potassium Level 3.3L, Chloride Level 109H, Carbon Dioxide Level 22, Anion Gap 10, Blood Urea Nitrogen 20H, Creatinine 0.66, Estimat Glomerular Filtration Rate > 60, BUN /Creatinine Ratio 30, Glucose Level 192H, Calcium Level 9.0, Phosphorus Level 3.3, Magnesium Level 2.0 06/26/18 13:20: Glucometer 224H Microbiology 06/12/18 Blood Culture - Final, Complete No growth 06/15/18 Mycobacterial Culture - Preliminary, Resulted See Comments 06/12/18 Urine Culture - Final, Complete Enterococcus faecalis Radiology Date of Exam: 06/12/18 CT HEAD WO-R/O STROKE EXAM: CT HEAD WO-R/O STROKE INDICATION: Leg weakness. Altered mental status. Slurred speech. COMPARISON: CT head without contrast from 08/24/2017. FINDINGS: No intracranial hemorrhage, mass effect, hydrocephalus, or extra-axial fluid collections. No CT evidence of acute infarction. Osseous structures are intact. The visualized paranasal sinuses and mastoids are unremarkable. IMPRESSION: No acute intracranial CT findings. Date of Exam: 06/12/18 CHEST 1 VIEW, AP/PA ONLY INDICATION: Wheezing. EXAMINATION: Portable erect AP chest at 4:42 p.m. FINDINGS: The heart is enlarged and has increased in size since the prior exam of 04/17/2018. Furthermore, in the interval since the prior study, alveolar/interstitial pulmonary infiltrates have developed in the right suprahilar region, the left upper lung and the left midlung. These findings could be secondary to pulmonary edema, pneumonia/atelectasis or a combination of all three. The periphery of the right lung is generally clear and there is no significant pleural effusion in either lung base. The mediastinum is not widened. The osseous structures are intact. There is a loop recorder device again noted overlying the left thorax. IMPRESSION: The appearance of the chest has worsened since the prior study as the heart has increased in size and alveolar/interstitial pulmonary infiltrates have developed, bilaterally, particularly on the left. These abnormal parenchymal densities may be related to pulmonary edema, pneumonia, atelectasis or a combination of all three. A followup exam would be recommended for continued evaluation. Date of Exam: 06/13/18 CHEST 1 VIEW, AP/PA ONLY INDICATION: Followup of infiltrates with shortness of breath. FINDINGS: Bilateral dense infiltrates noted in the upper lobes bilaterally. Moderate perihilar infiltrate noted in the left lower lobe as well. Right lower lung appears clear. The heart is mildly enlarged and has increased in size since 04/17/2018. No evidence of pleural effusion. No pneumothorax. IMPRESSION: 1. Increasing cardiac size. 2. Bilateral infiltrates present increasing in density since previous exam. These could represent inflammatory infiltrates or increasing pulmonary edema. Assessment/Plan Assessment/Plan Assessment & Plan 06/26/18 - Transferred to the floor from ICU yesterday; Dr. Bautista consulted - Pt stable but remains non-verbal likely secondary to metabolic encephalopathy ; head imaging negative - PICC line and enteric tube feed in place - remains on Eraxis, levofloxacin and solumedrol 40 mg IV q12. - updated Social Service consult to start working on long-term care placement - Dr. Da Silva to assume care in the am. (1) Severe sepsis Status: Acute Assessment & Plan: 06/13 -secondary to multi-lobar PNA -hypotension, improved after fluid bolus; febrile to 101.5, tachycardia and tachypnea -hydrocortisone 100 mg IV in ED, will start on prednisone (pt with solumedrol allergy)-CRP >15 06/14 -CXR again shows multi-lobar PNA -Day 3 Rocephin, Azithromycin -sputum culture + yeast, + e coli -urine cx + enterococcus -sensitivities indicate both sensitive to Levaquin, will change to 750 Levaquin daily, add Diflucan for yeast 06/15 -worsening CXR, concern for ARDS -Azithromycin, Levaquin -stop Diflucan, change to Eraxis -stop prednisone, change to Solu-Medrol 125 mg Q8H - pt allergy is burning skin and eye irritation, at this point it is felt that the potential benefit outweighs the risks; will monitor closely for signs of allergic rxn to medication -bronch this AM -blood cx with no growth to date - attempted to contact family; message left for daughter Kaycee that pt is critically ill and her overall prognosis is guarded at best; the next 48 hours will be critical 06/16 -no improvement in CXR -Eraxis, Azithromycin, Levaquin -Solu-medrol 125 mg Q8H; pt with no sign of intolerance or allergic reaction -blood cx with no growth to date -Day 4 abx 06/17 -some improvement in CXR from previous -Eraxis, Levaquin -Day 5 abx -Solu- medrol 125 mg Q8H Day 3 - no signs of intolerance or allergy -blood cx no growth to date 06/18- management per Dr. Bautista, no change in antimicrobials or clinical status 06/19- continue Eraxis, levofloxacin and solumedrol 06/[address] Bautista 06/22- decreased solumedrol dose 06/24- remains on Eraxis, levofloxacin and solumedrol 40 mg IV q12. (2) Multilobar lung infiltrate Status: Acute Assessment & Plan: See severe sepsis and ARDS plan (3) Acute respiratory failure with hypoxia Status: Acute Assessment & Plan: 06/15 -patient now on ventilator day 2, FiO2 at 50% -requiring a significant amount of sedation to tolerate vent, currently on both precedex and propofol -ABG this AM pH 7.33, pCO2 46, pO2 158 -worsening CXR, concerning for ARDS 06/16 -Vent Day 3, FiO2 35% -pt requiring large amounts of sedation and still tolerating turning and suctioning very poorly -given 5mg morphine prior to turning and suctioning with less severe hypotension ; pt was previously having systolic pressure drops into the 70s, when morphine given first patient did drop systolic pressure into the upper 80's but very briefly then returned to baseline -will order 5 mg morphine Q1H PRN turning and suctioning, with the hope that patient can wean down on some of her other high dose sedation, currently on propofol, precedex and fentanyl; fentanyl bolus prior to cares did not seem to help, patient did much better with morphine bolus 06/17 -continues to have copious secretions, but tolerating suctioning better with morphine prior -precedex off this AM, propofol and fentanyl gtt 06/18- continues on FiO2 30% and with excessive secretions and agitation requiring Precedex, propofol and fentanyl 06/19 FiO2 increased to 35% this am 06/20- working on beginning of weaning per Dr. Bautista 06/23 extubated and improved respiratory status 06/25 - currently on 1L nc 06/26 - 94% on 2L nc (4) Altered mental status Status: Acute Assessment & Plan: Minimally responsive after extubation, tracking but not talking and minimal movement. CT head without acute findings. May be related to heavy sedation previously used. 06/24 minimal improvement even though off sedation for a couple of days. CTA head /neck pending. 06/25 - CT head negative; slow improvement; appears to be secondary to metabolic encephalopathy Qualifiers: Qualified Codes: R41.82 - Altered mental status, unspecified (5) Hemoptysis Status: Acute Assessment & Plan: 06/13 -called by nursing staff last night that patient was coughing up thick bloody sputum -pt with RA and on Xeljanz -will check Quanterferon Gold for TB and send sputum for culture -place in isolation in negative pressure room until TB ruled out, although chances are low -pt states she had TB test before starting Xeljanz that was negative 06/14 -results of TB testing pending, pt to remain in isolation until result obtained 06/15 -preliminary results returned last night - negative for TB; pt taken out of TB isolation -bronch this AM by Dr. Bautista shows large amount of old bloody sputum but no active bleeding -consider pulmonary hemorrhage; will hold plavix and lovenox 06/16 -continues to have blood tinged, copious secretions 06/24 mycobacterial culture remains negative 06/25 - improving (6) Hyperglycemia, drug-induced Status: Acute (7) Hypertension Status: Chronic Qualifiers: Qualified Codes: I10 - Essential (primary) hypertension (8) Rheumatoid arthritis Status: Chronic Qualifiers: Qualified Codes: M06.9 - Rheumatoid arthritis, unspecified (9) Anemia Qualifiers: Qualified Codes: D64.9 - Anemia, unspecified (10) Cardiomegaly Status: Acute (11) Grade II diastolic dysfunction (12) Tricuspid regurgitation Status: Chronic Qualifiers: Qualified Codes: I36.1 - Nonrheumatic tricuspid (valve) insufficiency (13) Pulmonary hypertension Status: Acute (14) Sleep apnea Status: Chronic Qualifiers: Qualified Codes: G47.33 - Obstructive sleep apnea (adult) (pediatric) (15) Coronary artery disease Status: Chronic Qualifiers: Qualified Codes: I25.10 - Atherosclerotic heart disease of [place] coronary artery without angina pectoris (16) Anxiety Status: Chronic (17) Chronic pain Status: Chronic Qualifiers: Qualified Codes: G89.29 - Other chronic pain (18) Tobacco abuse Status: Chronic (19) Weakness Status: Acute (20) Elevated d-dimer Status: Acute (21) History of stroke Status: Chronic (22) Obesity (BMI 30-39.9) Status: Chronic (23) Hyponatremia Status: Resolved (24) DVT prophylaxis Status: Acute (25) ARDS (adult respiratory distress syndrome) Status: Resolved (26) Acute renal injury due to sepsis Status: Resolved (27) Elevated LFTs Status: Resolved (28) Bacteria in urine Status: Resolved Clinical Quality Measures DVT/VTE Risk/Contraindication: VTE Present on Admission: No Risk Factor Score Per Nursin RFS Level Per Nursing on Admit: 4+=Very High Contraindications-Pharm: Other *list below* Other: Lovenox Pneumonia: Pseudomonal Risk: COPD CORTEZ CARREON DO Jun 26, 2018 13:39
[2018-06-26 16:00] VITALS: BP 157/85
[2018-06-26 20:00] VITALS: BP 179/78
[2018-06-26] MEDS: ATORVASTATIN 20 MG (LIPITOR) TABLET PO SCH (21:52)
[2018-06-27] VITALS: BP 150/77
[2018-06-27] MEDS: RT-ALBUTEROL/IPRATROPIUM 3 ML (DUONEB) VIAL INH SCH ×6 (02:32→21:12)
[2018-06-27 03:09] LABS: BASOPHILS % (AUTO) 0 % (0-10); EOSINOPHILS % (AUTO) 0 % (0-10); HEMATOCRIT 35 % (35-52); HEMOGLOBIN 11.8 G/DL (11.5-16.0); LYMPHOCYTES # (AUTO) 0.7 X 10^3 (1.0-4.0); LYMPHOCYTES % (AUTO) 9 % (12-44); MEAN CORPUSCULAR HEMOGLOBIN 30 PG (25-34); MEAN CORPUSCULAR HGB CONC 33 G/DL (32-36); MEAN CORPUSCULAR VOLUME 89 FL (80-99); MEAN PLATELET VOLUME 9.4 FL (7.4-10.4); MONOCYTES # (AUTO) 0.4 X 10^3 (0.0-1.0); MONOCYTES % (AUTO) 5 % (0-12); NEUTROPHILS % (AUTO) 86 % (42-75); PLATELET COUNT 280 10^3/uL (130-400); RED BLOOD COUNT 3.99 10^6/uL (4.35-5.85); RED CELL DISTRIBUTION WIDTH 15.7 % (10.0-14.5); WHITE BLOOD COUNT 8.1 10^3/uL (4.3-11.0)
[2018-06-27 03:23] LABS: BUN/CREATININE RATIO 21; CARBON DIOXIDE 22 MMOL/L (21-32); CHLORIDE 107 MMOL/L (98-107); CREATININE SERUM 0.66 MG/DL (0.60-1.30); GFR ESTIMATED > 60; GLUCOSE 227 MG/DL (70-105); MAGNESIUM 1.9 MG/DL (1.8-2.4); PHOSPHORUS 3.3 MG/DL (2.3-4.7); POTASSIUM 3.4 MMOL/L (3.6-5.0); SODIUM 140 MMOL/L (135-145)
[2018-06-27 04:00] VITALS: BP 156/85
[2018-06-27] MEDS: LACTATED RINGERS 1,000 ML IV SCH (04:14)
[2018-06-27] MEDS: CATHETER FLUSH 10 ML SYR IV SCH ×3 (05:18→22:40)
[2018-06-27] MEDS: inSUlin ASPART (NovoLOG) 1 UNIT/0.01 ML (CHARGE PER UNIT) SC SCH ×4 (05:42→18:03)
[2018-06-27 08:00] VITALS: BP 156/72
[2018-06-27] MEDS: LORATADINE (CLARITIN) 10 MG TAB PO SCH (09:04)
[2018-06-27] MEDS: PANTOPRAZOLE 40 MG (PROTONIX) VIAL IV SCH (09:04)
[2018-06-27] MEDS: amLODIPine 10 MG (NORVASC) TAB NG SCH (09:04)
[2018-06-27] MEDS: methylPREDNISolone 40 MG/ML (Solu-MEDROL) VIAL IV SCH (09:04)
[2018-06-27] MEDS: meTOprolol TARTRATE 25 MG (LOPRESSOR) TABLET PO SCH ×2 (09:04→22:40)
[2018-06-27] MEDS: FLUTICASONE NASAL SPRAY (FLONASE) 16 GM BTL NS SCH (09:05)
[2018-06-27] MEDS: DOCUSATE SODIUM 10 MG/ML 10 ML UDC (COLACE) PO SCH ×2 (09:05→20:00)
[2018-06-27] MEDS: POLYETHYLENE GLYCOL 17 GM (MIRALAX) PACK PO SCH ×2 (09:05→20:01)
[2018-06-27] MEDS: ANIDULAFUNGIN INJECTION 100 MG in NS (IVPB) 100 ML IV SCH (09:27)
--- NOTE | 2018-06-27 09:35 | Pulmonary Progress Note ---
Subjective Time Seen by Provider: 12:58 Sepsis Event Evaluation Height, Weight, BMI Height: 5'6.00" Weight: 218lbs. 3.0oz. 98.368836qz; 37.8 BMI Method:Stated Exam Exam Vital Signs Date Time Temp Pulse Resp B/P (MAP) Pulse Ox O2 Delivery O2 Flow Rate FiO2 06/27/18 08:00 97.9 83 16 156/72 (100) 92 Nasal Cannula 2.00 06/27/18 07:40 95 Nasal Cannula 2.00 06/27/18 04:00 97.7 93 20 156/85 (108) 96 Nasal Cannula 2.00 06/27/18 02:32 93 Nasal Cannula 2.00 06/27/18 00:00 96.7 83 34 150/77 (101) 95 Nasal Cannula 2.00 06/26/18 22:04 92 Nasal Cannula 2.00 06/26/18 21:00 Nasal Cannula 2.00 06/26/18 20:00 99.0 110 34 179/78 (111) 93 Nasal Cannula 2.00 06/26/18 18:55 92 Nasal Cannula 2.00 06/26/18 17:08 Nasal Cannula 2.00 06/26/18 16:00 99.1 105 20 157/85 (109) 96 Nasal Cannula 2.00 06/26/18 12:13 98.2 97 22 126/60 (82) 94 Nasal Cannula 2.00 06/26/18 10:54 90 Nasal Cannula 2.00 I & O 06/27/18 07:00 Intake Total 3887 ml Output Total 1975 ml Balance 1912 ml Height & Weight Height: 5'6.00" Weight: 218lbs. 3.0oz. 98.863381gp; 37.8 BMI Method:Stated General Appearance: No Apparent Distress, WD/WN HEENT: PERRL/EOMI, Pharynx Normal Neck: Non Tender, Supple Respiratory: Normal Breath Sounds, Crackles, Decreased Breath Sounds, Expiration Cardiovascular: Regular Rate, Rhythm, No Murmur Capillary Refill: Less Than 3 Seconds Peripheral Pulses: 2+ Radial Pulses (R), 2+ Radial Pulses (L) Gastrointestinal: normal bowel sounds, non tender, soft, no organomegaly Extremity: Normal Range of Motion, Non Tender Neurologic/Psychiatric: Alert (Not following all commands. ), No Motor/Sensory Deficits Skin: Normal Color, Warm/Dry Lymphatic: No Adenopathy Results Lab Laboratory Tests 06/25/18 09:49 06/26/18 06:00 06/27/18 02:55 Assessment/Plan Assessment/Plan Acute respiratory failure secondary to pneumonia--- improved - Eraxis -- Will D/C -D/C solumedrol -Check BNP Metabolic encephalopathy r/o acute CVA -- pt does have hx of CVA -TSH T4, - are normal -sedation has been on hold -CT of head /neck with contrast is negative pulmonary hemorrhage-- - improved after holding plavix -repeat CT of chest - appears much improved COPDAE -DuoNeb Q4 UTI with Sepsis -improved HX of depression -- Acute renal failure -improved -present on admission HX of CVA and TPA in the past -CT on admission was negative DVT/GI PPX -Continue protonix Pt is going to need ECF placement QUINN VELÁZQUEZ DO Jun 27, 2018 09:35
--- NOTE | 2018-06-27 09:53 | Progress Note-Hospitalist ---
MELLISA MORAN MEDICAL STUDENT 06/27/18 0953: Subjective HPI/CC On Admission Date Seen by Provider: Jun 27, 2018 Time Seen by Provider: 08:00 Weakness and falls Subjective/Events-last exam Pt had no acute events overnight. She appeared alert today when I visited her, but was only able to occasionally nod her head. Per nursing staff, there is no change in her mental status. She is having regular BMs with a sage in place. Blood pressure tends to rise when nursing staff shifts her. Focused Exam Respiratory: Chest Non Tender, Lungs Clear, Normal Breath Sounds, No Accessory Muscle Use Cardiovascular: Regular Rate, Rhythm Objective Exam Vital Signs Vital Signs Date Time Temp Pulse Resp B/P (MAP) Pulse Ox O2 Delivery O2 Flow Rate FiO2 06/27/18 08:00 97.9 83 16 156/72 (100) 92 Nasal Cannula 2.00 06/26/18 09:05 28 Capillary Refill : Less Than 3 SecondsLess Than 3 Seconds General Appearance: No Apparent Distress, Other (NG and nasal cannula in place. Pt awake. ) Neurologic/Psychiatric: Other (non-verbal) Results/Procedures Lab Laboratory Tests 06/27/18 02:55 Patient resulted labs reviewed. Assessment/Plan Assessment and Plan Assess & Plan/Chief Complaint 63 year old female with RA that was found to have UTI, hemoptysis, pneumonia, and severe sepsis that was intubated from 06/13-06/23 and has had altered mental status since extubation. Altered Mental Status: Likely related to metabolic acidosis. CT head unremarkable. Pneumonia/Hemoptysis: WBC now normal, lungs clear -On Levaquin, eraxis, solumedrol -Oxygen supplementation Hypertension -Will consider adding lisinopril Hypokalemia -Replace through NG tube Dispo: -Will likely require long-term care Clinical Quality Measures DVT/VTE Risk/Contraindication: VTE Present on Admission: No Risk Factor Score Per Nursin RFS Level Per Nursing on Admit: 4+=Very High Contraindications-Pharm: Other *list below* Other: Lovenox Pneumonia: Pseudomonal Risk: COPD KISHAN CHAVEZ DO 06/27/18 1209: Subjective HPI/CC On Admission Time Seen by Provider: 10:30 Supervisory Addendum Participated in pt care: history Personally performed: exam E&M service: agree Results interpretation: agree Notes: patient doing a little better She actually spoke to me and answered and simple question when I examined her Moving to air bed currently SW consult for placement Diagnosis/Problems Diagnosis/Problems (1) ARDS (adult respiratory distress syndrome) Status: Resolved (2) Altered mental status Status: Acute Qualifiers: Altered mental status type: unspecified Qualified Codes: R41.82 - Altered mental status, unspecified (3) Pneumonia involving left lung Status: Acute Qualifiers: Pneumonia type: due to unspecified organism Lung location: upper lobe of lung Qualified Codes: J18.1 - Lobar pneumonia, unspecified organism (4) Labile blood pressure Status: Acute (5) Acute renal failure Status: Acute Qualifiers: Acute renal failure type: unspecified Qualified Codes: N17.9 - Acute kidney failure, unspecified (6) Hypertension Status: Chronic Qualifiers: Hypertension type: essential hypertension Qualified Codes: I10 - Essential (primary) hypertension (7) Elevated LFTs Status: Resolved MELLISA MORAN MEDICAL STUDENT Jun 27, 2018 09:53 KISHAN CHAVEZ DO Jun 27, 2018 12:09
--- NOTE | 2018-06-27 09:55 | Occupational Ther Daily Note ---
OT Current Status-Daily Note Subjective Pt lying in bed asleep, opened eyes in response to name. Mental Status/Objective Patient Orientation: Person, Non-Verbal/Aphasic, Eyes Open Functional Gem Measure 0=Not Assessed/NA 4=Minimal Assistance 1=Total Assistance 5=Supervision or Setup 2=Maximal Assistance 6=Modified Gem 3=Moderate Assistance 7=Complete Gem Attachments: Rosales Catheter, IV, NG Tube, Oxygen, Telemetry ADL-Treatment BEATER WORKER HELPER/s performed UE bilateral PROM x5 to maintain ROM/joint mobility and edema massage to reduce edema in the UE's. Pt resisted R UE shoulder ROM, moaning when manipulated. No muscle tightness felt. Pt responded to questions by nodding head, inconsistent with accuracy. Pt unable to follow verbal or visual directions. After therapy, call light within reach. All needs met in room. OT Short Term Goals Short Term Goals Time Frame: Jul 07, 2018 Grooming(FIM): 3 Transfers (B,C,W/C) (FIM): 2 Additional Short Term Goals: 1-Demonstrate ADL Tasks, 2-Verbalize Understanding , 3-ImproveStrength/[place] 1=Demonstrate adherence to instructed precautions during ADL tasks. 2=Patient will verbalize/demonstrate understanding of assistive devices/ modifications for ADL. 3=Patient will improve strength/tolerance for activity to enable patient to perform ADL's. OT Customer Experience Intern Goals Customer Experience Intern Goals Time Frame: Jul 21, 2018 Grooming(FIM): 4 Upper Body Dressing(FIM): 4 Lower Body Dressing(FIM): 3 Toileting(FIM): 4 Transfers (B,C,W/C) (FIM): 4 Toilet/Commode Transfer(FIM): 4 Additional Goals: 1-Demonstrate ADL Tasks, 2-Verbalize Understanding, 3- ImproveStrength/[place] 1=Demonstrate adherence to instructed precautions during ADL tasks. 2=Patient will verbalize/demonstrate understanding of assistive devices/ modifications for ADL. 3=Patient will improve strength/tolerance for activity to enable patient to perform ADL's. OT Education/Plan Discharge Recommendations Plan/Recommendations: Continue POC Treatment Plan/Plan of Care Patient would benefit from OT for education, treatment and training to promote independence in ADL's, mobility, safety and/or upper extremity function for ADL' s. Plan of Care: ADL Retraining, Caregiver Training, Cognitive Retraining, Functional Mobility, UE Funct Exercise/Act, UE Neuromus Re-Ed/Coord Treatment Duration: Jul 21, 2018 Frequency: 5 times per week Estimated Hrs Per Day: .5 hour per day Agreement: Yes Rehab Potential: Guarded Time/GCodes Start Time: 09:52 Stop Time: 10:11 Total Time Billed (hr/min): 19 Billed Treatment Time 1 visit- EX (19 min) JEWEL MARCOS Jun 27, 2018 09:54
--- NOTE | 2018-06-27 11:23 | Physical Therapy Daily Note ---
PT Daily Note-Current Subjective Patient is alert and confused. Pain Numeric Pain Scale: 5-Moderate Pain Location: Right, Left Location Body Site: Hip Pain Description: Tightness (FLACC with ROM) Mental Status Patient Orientation: Confused Attachments: NG Tube, Oxygen, Rosales Catheter Transfers Functional Cuming Measure 0=Not Assessed/NA 4=Minimal Assistance 1=Total Assistance 5=Supervision or Setup 2=Maximal Assistance 6=Modified Cuming 3=Moderate Assistance 7=Complete IndependenceIRFPAI Quality Coding Scale 6 Independent with activity with or without an assistive device 5 Patient requires set up or clean up by helper. Patient completes activity by themselves 4 Supervision or touching assist (CGA). Joshua provide cues , steadying assist 3 The helper provides less than half the effort to complete the activity 2 The helper provides more than half the effort to complete the activity 1 Dependent. The helper does all the effort to complete an activity 7 Patient refused to complete or attempt activity 9 The patient did not perform the activity before the current illness or injury 88 Not attempted due to Medical conditions or safety concerns Transfers (B, C, W/C) (FIM): 1 Scootin Rollin dependent assist with changing and cleansing patient. Weight Bearing Right Lower Extremity: Right Full Weight Bearing Left Lower Extremity: Left Full Weight Bearing Exercises Supine Ex: Ankle pumps, Heel Slides, Straight leg raise, Hip abd/add Supine Reps: 15 (3 sets) Assessment Patient tolerated treatment and has noted bilateral hip tightness with ROM and noted FLACC response. Patient is unable to follow simple direction. PT Short Term Goals Short Term Goals Time Frame: Jul 02, 2018 Transfers (B,C,W/C) (FIM): 2 PT Vendor Management Consultant Goals Vendor Management Consultant Goals PT Vendor Management Consultant Goals Time Frame: Aug 06, 2018 Transfers (B,C,W/C) (FIM): 4 Gait (FIM): 2 Gait distance (FIM): 3=378-94 ft Distance: 75' Gait Level of Assist: 4 Gait Assistive Device: FWW PT Plan Treatment/Plan Treatment Plan: Continue Plan of Care Treatment Plan: Bed Mobility, Education, Functional Activity Checo, Functional Strength, Gait, Safety, Therapeutic Exercise, Transfers Treatment Duration: Aug 06, 2018 Frequency: 6 times per week (increase as patient improves) Estimated Hrs Per Day: .5 hour per day Patient and/or Family Agrees t: Yes Time/GCodes Time In: 1047 Time Out: 1105 Total Billed Treatment Time: 18 Total Billed Treatment 1 visit EX 18 min FIDEL JARQUIN PT Jun 27, 2018 11:22
[2018-06-27 12:00] VITALS: BP 157/93
[2018-06-27] MEDS: ENOXAPARIN 40 MG/0.4 ML (LOVENOX) SYR SQ SCH (13:26)
--- NOTE | 2018-06-27 14:28 | Speech Therapy Daily Note ---
Speech Daily Progress Note Subjective Date Seen by Provider: Jun 27, 2018 Time Seen by Provider: 13:15 Pt in bed, alert today. Objective Attempted PO trials today since pt is alert. Gave pt 1/2 tsp of water. Pt appeared to tolerate thin with no signs of aspiration. Also provided pureed ( applesauce) with no signs of aspiration. Due to the pt's altered mental status and edentulous begin pt on Dysphagia 1 (pureed) diet with nectar thick liquids. Assessment Assessment Current Status: Fair Progress Treatment Plan Modify Plan, See Comments (Skilled ST indicated for dysphagia) Speech Short Term Goals Short Term Goals Short Term Goals Follow pt to determine safety of diet. Upgrade pt's diet with appropriate. Time Frame-ST-2 weeks Speech Recycling Attendant Goals Long-Term Goals Pt will tolerate least restrictive diet with no signs/symptoms of aspiration. Time Frame: 2 weeks Speech-Plan Patient/Family Goals Patient/Family Goals: pt unable to state goal due to altered mental status Treatment Plan Speech Therapy Treatment Plan: Modify Plan, See Comments (Skilled ST indicated) skilled ST indicated to determine safeness of recommended diet. Frequency: 3 times per week Estimated Hrs Per Day: .25 hour per day Rehab Potential: Fair Barriers to Learning: Decreased mental status Safety Risks/Education Teaching Recipient: Patient Teaching Methods: Discussion Response to Teaching: Unable to Comprehend Time Speech Therapy Time In: 13:15 Speech Therapy Time Out: 13:40 Total Billed Time: 25 Billed Treatment Time 1, DYST RIZWANA Gutierrez Jun 27, 2018 14:28
[2018-06-27 16:00] VITALS: BP 167/81
[2018-06-27 22:15] VITALS: BP 135/90
[2018-06-27] MEDS: ATORVASTATIN 20 MG (LIPITOR) TABLET PO SCH (22:40)
[2018-06-28 00:30] VITALS: BP 149/71
[2018-06-28] MEDS: inSUlin ASPART (NovoLOG) 1 UNIT/0.01 ML (CHARGE PER UNIT) SC SCH ×4 (00:56→18:41)
[2018-06-28] MEDS: RT-ALBUTEROL/IPRATROPIUM 3 ML (DUONEB) VIAL INH SCH ×6 (01:27→22:46)
[2018-06-28 04:00] VITALS: BP 143/76
[2018-06-28 06:43] LABS: BASOPHILS % (AUTO) 0 % (0-10); EOSINOPHILS # (AUTO) 0.1 10^3/uL (0.0-0.3); EOSINOPHILS % (AUTO) 1 % (0-10); HEMATOCRIT 34 % (35-52); LYMPHOCYTES # (AUTO) 1.2 X 10^3 (1.0-4.0); LYMPHOCYTES % (AUTO) 12 % (12-44); MEAN CORPUSCULAR HEMOGLOBIN 31 PG (25-34); MEAN CORPUSCULAR HGB CONC 35 G/DL (32-36); MEAN CORPUSCULAR VOLUME 88 FL (80-99); MEAN PLATELET VOLUME 9.1 FL (7.4-10.4); MONOCYTES # (AUTO) 0.8 X 10^3 (0.0-1.0); MONOCYTES % (AUTO) 8 % (0-12); NEUTROPHILS # (AUTO) 7.5 X 10^3 (1.8-7.8); NEUTROPHILS % (AUTO) 79 % (42-75); PLATELET COUNT 272 10^3/uL (130-400); RED BLOOD COUNT 3.93 10^6/uL (4.35-5.85); RED CELL DISTRIBUTION WIDTH 15.5 % (10.0-14.5); WHITE BLOOD COUNT 9.4 10^3/uL (4.3-11.0)
[2018-06-28 07:00] LABS: BUN/CREATININE RATIO 25; CALCIUM 8.7 MG/DL (8.5-10.1); CARBON DIOXIDE 23 MMOL/L (21-32); CHLORIDE 108 MMOL/L (98-107); GFR ESTIMATED > 60; GLUCOSE 142 MG/DL (70-105); MAGNESIUM 1.9 MG/DL (1.8-2.4); PHOSPHORUS 2.9 MG/DL (2.3-4.7); SODIUM 140 MMOL/L (135-145)
[2018-06-28] MEDS: CATHETER FLUSH 10 ML SYR IV SCH ×3 (07:08→21:01)
--- NOTE | 2018-06-28 07:28 | Pulmonary Progress Note ---
Subjective Time Seen by Provider: 07:28 Sepsis Event Evaluation Height, Weight, BMI Height: 5'6.00" Weight: 218lbs. 3.0oz. 98.184620de; 37.8 BMI Method:Stated Exam Exam Vital Signs Date Time Temp Pulse Resp B/P (MAP) Pulse Ox O2 Delivery O2 Flow Rate FiO2 06/28/18 07:02 94 Nasal Cannula 2.00 06/28/18 01:27 96 Nasal Cannula 2.00 06/28/18 00:30 96.8 88 16 149/71 (97) 96 Nasal Cannula 2.00 06/27/18 22:15 98.2 95 16 135/90 (105) 98 Nasal Cannula 2.00 06/27/18 21:13 93 Nasal Cannula 2.00 06/27/18 20:20 Nasal Cannula 1.00 06/27/18 18:58 97 Nasal Cannula 2.00 06/27/18 16:00 97.3 99 20 167/81 (109) 95 Nasal Cannula 2.00 06/27/18 14:20 92 Nasal Cannula 2.00 06/27/18 12:00 98.0 87 16 157/93 (114) 95 Nasal Cannula 2.00 06/27/18 09:00 Nasal Cannula 2.00 06/27/18 08:00 97.9 83 16 156/72 (100) 92 Nasal Cannula 2.00 06/27/18 07:40 95 Nasal Cannula 2.00 I & O 06/28/18 07:00 Intake Total 770 ml Output Total 1350 ml Balance -580 ml Height & Weight Height: 5'6.00" Weight: 218lbs. 3.0oz. 98.481596ij; 37.8 BMI Method:Stated General Appearance: No Apparent Distress, Other (NG and nasal cannula in place. Pt awake. ) HEENT: PERRL/EOMI, Pharynx Normal Neck: Non Tender, Supple Respiratory: Chest Non Tender, Lungs Clear, Normal Breath Sounds, No Accessory Muscle Use Cardiovascular: Regular Rate, Rhythm Capillary Refill: Less Than 3 Seconds Peripheral Pulses: 2+ Radial Pulses (R), 2+ Radial Pulses (L) Gastrointestinal: normal bowel sounds, non tender, soft, no organomegaly Extremity: Normal Range of Motion, Non Tender Neurologic/Psychiatric: Other (non-verbal) Skin: Normal Color, Warm/Dry Lymphatic: No Adenopathy Results Lab Laboratory Tests 9/17/18 02:55 06/28/18 06:34 Assessment/Plan Assessment/Plan Acute respiratory failure secondary to pneumonia--- improved Metabolic encephalopathy r/o acute CVA -- pt does have hx of CVA -TSH T4, - are normal -sedation has been on hold -CT of head /neck with contrast is negative COPDAE -DuoNeb Q4 UTI with Sepsis -improved HX of depression -- Acute renal failure -improved -present on admission 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
[2018-06-28 08:00] VITALS: BP 150/82
--- NOTE | 2018-06-28 08:18 | Progress Note-Hospitalist ---
MELLISA MORAN MEDICAL STUDENT 06/28/18 0818: Subjective HPI/CC On Admission Date Seen by Provider: Jun 28, 2018 Time Seen by Provider: 07:30 Weakness and falls Subjective/Events-last exam Held NG feedings yesterday as patient started tolerating PO intake. Pt states clearly that she is not feeling any better. Unable to respond when asked about pain. Per chart review, she is having regular BMs and adequate urine output. Focused Exam Respiratory: Chest Non Tender, Lungs Clear, Normal Breath Sounds Cardiovascular: Regular Rate, Rhythm, No Murmur Skin: normal color, warm/dry Objective Exam Vital Signs Vital Signs Date Time Temp Pulse Resp B/P (MAP) Pulse Ox O2 Delivery O2 Flow Rate FiO2 06/28/18 07:02 94 Nasal Cannula 2.00 06/28/18 04:00 97.9 88 18 143/76 (98) 06/26/18 09:05 28 Capillary Refill : Less Than 3 SecondsLess Than 3 Seconds General Appearance: No Apparent Distress, WD/WN Neurologic/Psychiatric: Other (Unable to tell her name. Speaks with yes or no only occasionally. ) Results/Procedures Lab Laboratory Tests 06/28/18 06:34 Patient resulted labs reviewed. Assessment/Plan Assessment and Plan Assess & Plan/Chief Complaint 63 year old female with RA that was found to have UTI, hemoptysis, pneumonia, and severe sepsis that was intubated from 06/13-06/23 and has had altered mental status since extubation. Altered Mental Status: Likely related to metabolic acidosis. CT head unremarkable. Pneumonia/Hemoptysis: WBC now normal, lungs clear -On Levaquin. Eraxis and solumedrol discontinued yesterday. -Oxygen supplementation Hypertension: better controlled overnight on same regimen. -Will consider adding lisinopril Hypokalemia -Replace orally GI -NG tube in place, but tolerating PO intake so NG feedings discontinued. Dispo: -Will require long-term care placement Clinical Quality Measures DVT/VTE Risk/Contraindication: VTE Present on Admission: No Risk Factor Score Per Nursin RFS Level Per Nursing on Admit: 4+=Very High Contraindications-Pharm: Other *list below* Other: Lovenox Pneumonia: Pseudomonal Risk: COPD KISHAN CHAVEZ DO 06/28/18 1125: Subjective Subjective/Events-last exam Pt has returned to non-verbal status Doubt recovery will be any more significant than this Review of Systems Neurological: Confusion Objective Exam General Appearance: No Apparent Distress, WD/WN, Chronically ill, Obese Respiratory: Chest Non Tender, Lungs Clear, Normal Breath Sounds, No Accessory Muscle Use, No Respiratory Distress Cardiovascular: Regular Rate, Rhythm, No Edema, No Gallop, No JVD, No Murmur, Normal Peripheral Pulses Neurologic/Psychiatric: Alert, Disoriented, Other (non-verbal) Skin: Normal Color, Warm/Dry Assessment/Plan Assessment and Plan Assess & Plan/Chief Complaint Doubt recovery will be any more than current status NHP Feeding tube? Supervisory Addendum Participated in pt care: history Personally performed: exam E&M service: agree Results interpretation: agree Notes: I personally have seen and evaluated the patient and performed the physical exam. I agree with the documented assessment and plan. Diagnosis/Problems Diagnosis/Problems (1) Aphasia Status: Acute (2) Debility Status: Acute (3) Poor prognosis Status: Acute (4) Hypokalemia Status: Acute (5) Altered mental status Status: Acute Qualifiers: Altered mental status type: unspecified Qualified Codes: R41.82 - Altered mental status, unspecified (6) Hypertension Status: Chronic Qualifiers: Hypertension type: essential hypertension Qualified Codes: I10 - Essential (primary) hypertension MELLISA MORAN MEDICAL STUDENT Jun 28, 2018 08:18 KISHAN CHAVEZ DO Jun 28, 2018 11:25
--- NOTE | 2018-06-28 09:07 | Occupational Ther Daily Note ---
OT Current Status-Daily Note Subjective Pt alert, lying in bed. Pt inconsistent with vocalizations or pain or questions. Mental Status/Objective Patient Orientation: Person, Non-Verbal/Aphasic, Eyes Open, Mumbles Functional [place] Measure 0=Not Assessed/NA 4=Minimal Assistance 1=Total Assistance 5=Supervision or Setup 2=Maximal Assistance 6=Modified [place] 3=Moderate Assistance 7=Complete [place] Attachments: [place] Catheter, IV, NG Tube, Oxygen, Telemetry Other Treatment PIT LABORER/s performed UE bilateral PROM x5 to maintain ROM/joint mobility and edema massage to reduce edema in the UE's. Pt resisted R UE shoulder ROM, moaning when manipulated. Joint prominence noted on R shoulder. Pt spontaneously opened and closed hands, unable to imitate movements. Pt responded to questions by nodding head, and attempting to speak, speech slurred. After therapy, call light within reach. All needs met in room. OT Short Term Goals Short Term Goals Time Frame: Jul 07, 2018 Grooming(FIM): 3 Transfers (B,C,W/C) (FIM): 2 Additional Short Term Goals: 1-Demonstrate ADL Tasks, 2-Verbalize Understanding , 3-ImproveStrength/[place] 1=Demonstrate adherence to instructed precautions during ADL tasks. 2=Patient will verbalize/demonstrate understanding of assistive devices/ modifications for ADL. 3=Patient will improve strength/tolerance for activity to enable patient to perform ADL's. OT Cosmetology Instructor Goals Usp Goals Time Frame: Jul 21, 2018 Grooming(FIM): 4 Upper Body Dressing(FIM): 4 Lower Body Dressing(FIM): 3 Toileting(FIM): 4 Transfers (B,C,W/C) (FIM): 4 Toilet/Commode Transfer(FIM): 4 Additional Goals: 1-Demonstrate ADL Tasks, 2-Verbalize Understanding, 3- ImproveStrength/[place] 1=Demonstrate adherence to instructed precautions during ADL tasks. 2=Patient will verbalize/demonstrate understanding of assistive devices/ modifications for ADL. 3=Patient will improve strength/tolerance for activity to enable patient to perform ADL's. OT Education/Plan Discharge Recommendations Plan/Recommendations: Continue POC Treatment Plan/Plan of Care Patient would benefit from OT for education, treatment and training to promote independence in ADL's, mobility, safety and/or upper extremity function for ADL' s. Plan of Care: ADL Retraining, Caregiver Training, Cognitive Retraining, Functional Mobility, UE Funct Exercise/Act, UE Neuromus Re-Ed/Coord Treatment Duration: Jul 21, 2018 Frequency: 5 times per week Estimated Hrs Per Day: .5 hour per day Agreement: Yes Rehab Potential: Fair Time/GCodes Start Time: 08:37 Stop Time: 08:59 Total Time Billed (hr/min): 22 Billed Treatment Time 1 visit- EX 1 (22 min) JEWEL MARCOS Jun 28, 2018 09:07
[2018-06-28] MEDS: LORATADINE (CLARITIN) 10 MG TAB PO SCH (09:53)
[2018-06-28] MEDS: PANTOPRAZOLE 40 MG (PROTONIX) VIAL IV SCH (09:54)
[2018-06-28] MEDS: amLODIPine 10 MG (NORVASC) TAB NG SCH (09:54)
[2018-06-28] MEDS: meTOprolol TARTRATE 25 MG (LOPRESSOR) TABLET PO SCH ×2 (09:54→21:01)
[2018-06-28] MEDS: POLYETHYLENE GLYCOL 17 GM (MIRALAX) PACK PO SCH ×2 (09:54→21:00)
[2018-06-28] MEDS: FLUTICASONE NASAL SPRAY (FLONASE) 16 GM BTL NS SCH (09:54)
[2018-06-28] MEDS: DOCUSATE SODIUM 10 MG/ML 10 ML UDC (COLACE) PO SCH ×2 (09:54→21:00)
--- NOTE | 2018-06-28 09:57 | Physical Therapy Daily Note ---
PT Daily Note-Current Subjective Patient is alert. Continues to be confused Pain Numeric Pain Scale: 5-Moderate Pain Location: Right, Left Location Body Site: Hip Pain Description: Tightness (FLACC with stretching due to tone) Mental Status Patient Orientation: Confused Attachments: NG Tube Transfers Functional [place] Measure 0=Not Assessed/NA 4=Minimal Assistance 1=Total Assistance 5=Supervision or Setup 2=Maximal Assistance 6=Modified [place] 3=Moderate Assistance 7=Complete IndependenceIRFPAI Quality Coding Scale 6 Independent with activity with or without an assistive device 5 Patient requires set up or clean up by helper. Patient completes activity by themselves 4 Supervision or touching assist (CGA). [place] provide cues , steadying assist 3 The helper provides less than half the effort to complete the activity 2 The helper provides more than half the effort to complete the activity 1 Dependent. The helper does all the effort to complete an activity 7 Patient refused to complete or attempt activity 9 The patient did not perform the activity before the current illness or injury 88 Not attempted due to Medical conditions or safety concerns Weight Bearing Right Lower Extremity: Right Full Weight Bearing Left Lower Extremity: Left Full Weight Bearing Exercises Supine Ex: Ankle pumps, Lower trunk rotation, Heel Slides, Straight leg raise, Hip abd/add Supine Reps: 15 (PROM bilaterally with stretching due to tone) Assessment Patient is more alert, however, continues to require dependent assist with all mobility. PT Short Term Goals Short Term Goals Time Frame: Jul 02, 2018 Transfers (B,C,W/C) (FIM): 2 PT Usp Goals Usp Goals PT Senior Behavioral Scientist Goals Time Frame: Aug 06, 2018 Transfers (B,C,W/C) (FIM): 4 Gait (FIM): 2 Gait distance (FIM): 3=619-56 ft Distance: 75' Gait Level of Assist: 4 Gait Assistive Device: FWW PT Plan Treatment/Plan Treatment Plan: Continue Plan of Care Treatment Plan: Bed Mobility, Education, Functional Activity [place], Functional Strength, Gait, Safety, Therapeutic Exercise, Transfers Treatment Duration: Aug 06, 2018 Frequency: 6 times per week (increase as patient improves) Estimated Hrs Per Day: .5 hour per day Patient and/or Family Agrees t: Yes Time/GCodes Time In: 913 Time Out: 924 Total Billed Treatment Time: 11 Total Billed Treatment 1 visit EX 11 min FIDEL JARQUIN PT Jun 28, 2018 09:57
[2018-06-28 12:00] VITALS: BP 150/82
[2018-06-28] MEDS: ENOXAPARIN 40 MG/0.4 ML (LOVENOX) SYR SQ SCH (12:51)
[2018-06-28] MEDS: LACTATED RINGERS 1,000 ML IV SCH (12:51)
[2018-06-28 15:26] VITALS: BP 132/84
--- NOTE | 2018-06-28 15:37 | Speech Therapy Daily Note ---
Speech Daily Progress Note Subjective Date Seen by Provider: Jun 28, 2018 Time Seen by Provider: 09:00 pt in bed. Alert but not as vocal today. Pain Comment: pt unable to state if in pain or not. Objective Arrived at the end of her breakfast. Nursing reported pt did not eat much and that she stated that she is not a breakfast eater. Provided pt with a few more bites of her food and no s/s of aspiration was observed. Assessment Assessment Current Status: Fair Progress Speech Short Term Goals Short Term Goals Short Term Goals Follow pt to determine safety of diet. Upgrade pt's diet with appropriate. Time Frame-ST-2 weeks Speech [facility] Goals Technical Information Specialist Goals Pt will tolerate least restrictive diet with no signs/symptoms of aspiration. Time Frame: 2 weeks Speech-Plan Patient/Family Goals Patient/Family Goals: pt uanble to state plan due to decreased mental status. Treatment Plan Speech Therapy Treatment Plan: Continue Plan of Care continue to follow pt. Frequency: 3 times per week Estimated Hrs Per Day: .25 hour per day Rehab Potential: Fair Barriers to Learning: decreased mental status Safety Risks/Education Teaching Recipient: Patient Teaching Methods: Discussion Response to Teaching: Unable to Comprehend Education Topics Provided: Why pt is on current diet. Time Speech Therapy Time In: 09:00 Speech Therapy Time Out: 09:15 Total Billed Time: 15 Billed Treatment Time 1, DYST RIZWANA Gutierrez Jun 28, 2018 15:36
[2018-06-28] MEDS: KCL 20 MEQ POWDER FOR ORAL SOLUTION NG SCH (18:39)
[2018-06-28 19:35] VITALS: BP 144/86
[2018-06-28] MEDS: ATORVASTATIN 20 MG (LIPITOR) TABLET PO SCH (21:00)
[2018-06-29] VITALS (7 sets, daily range): BP systolic 135–169; BP diastolic 72–98
[2018-06-29] MEDS: inSUlin ASPART (NovoLOG) 1 UNIT/0.01 ML (CHARGE PER UNIT) SC SCH ×5 (00:23→23:56)
[2018-06-29] MEDS: RT-ALBUTEROL/IPRATROPIUM 3 ML (DUONEB) VIAL INH SCH ×6 (02:43→23:00)
[2018-06-29] MEDS: LACTATED RINGERS 1,000 ML IV SCH (04:04)
[2018-06-29 05:45] LABS: BASOPHILS % (AUTO) 0 % (0-10); EOSINOPHILS # (AUTO) 0.1 10^3/uL (0.0-0.3); EOSINOPHILS % (AUTO) 1 % (0-10); HEMATOCRIT 36 % (35-52); HEMOGLOBIN 12.2 G/DL (11.5-16.0); LYMPHOCYTES # (AUTO) 1.1 X 10^3 (1.0-4.0); LYMPHOCYTES % (AUTO) 14 % (12-44); MEAN CORPUSCULAR HEMOGLOBIN 30 PG (25-34); MEAN CORPUSCULAR HGB CONC 34 G/DL (32-36); MEAN CORPUSCULAR VOLUME 89 FL (80-99); MEAN PLATELET VOLUME 9.5 FL (7.4-10.4); MONOCYTES # (AUTO) 0.5 X 10^3 (0.0-1.0); MONOCYTES % (AUTO) 6 % (0-12); NEUTROPHILS # (AUTO) 6.5 X 10^3 (1.8-7.8); NEUTROPHILS % (AUTO) 79 % (42-75); PLATELET COUNT 253 10^3/uL (130-400); RED BLOOD COUNT 4.03 10^6/uL (4.35-5.85); RED CELL DISTRIBUTION WIDTH 16.1 % (10.0-14.5); WHITE BLOOD COUNT 8.2 10^3/uL (4.3-11.0)
[2018-06-29] MEDS: CATHETER FLUSH 10 ML SYR IV SCH ×3 (06:01→21:04)
[2018-06-29] MEDS: KCL 20 MEQ POWDER FOR ORAL SOLUTION NG SCH ×2 (06:01→17:48)
[2018-06-29 06:14] LABS: BUN/CREATININE RATIO 20; CALCIUM 8.9 MG/DL (8.5-10.1); CARBON DIOXIDE 22 MMOL/L (21-32); CHLORIDE 107 MMOL/L (98-107); CREATININE SERUM 0.64 MG/DL (0.60-1.30); GFR ESTIMATED > 60; GLUCOSE 130 MG/DL (70-105); MAGNESIUM 1.9 MG/DL (1.8-2.4); PHOSPHORUS 2.7 MG/DL (2.3-4.7); POTASSIUM 3.1 MMOL/L (3.6-5.0); SODIUM 140 MMOL/L (135-145)
--- NOTE | 2018-06-29 06:27 | Pulmonary Progress Note ---
Subjective Time Seen by a Provider: 06:23 Subjective/Events-last exam NO complications noted. Sepsis Event Evaluation Height, Weight, BMI Height: 5'6.00" Weight: 213lbs. 0.9oz. 96.019856kk; 37.8 BMI Method:Stated Exam Exam Vital Signs Date Time Temp Pulse Resp B/P (MAP) Pulse Ox O2 Delivery O2 Flow Rate FiO2 06/29/18 04:11 98.4 92 18 135/72 (93) 96 Nasal Cannula 2.00 06/29/18 02:43 93 Nasal Cannula 2.00 06/29/18 00:37 97.7 93 17 141/79 (99) 96 Nasal Cannula 2.00 06/28/18 22:46 95 Nasal Cannula 2.00 06/28/18 21:00 Nasal Cannula 1.00 06/28/18 19:35 97.1 113 36 144/86 (105) 97 2.00 06/28/18 19:16 95 Nasal Cannula 2.00 06/28/18 15:26 97.2 96 18 132/84 (100) 97 Nasal Cannula 2.00 06/28/18 14:21 96 Nasal Cannula 2.00 06/28/18 12:00 96.9 94 21 150/82 (104) 93 Nasal Cannula 2.00 06/28/18 10:36 95 Nasal Cannula 2.00 06/28/18 08:35 Nasal Cannula 1.00 06/28/18 08:00 96.0 99 22 150/82 (104) 92 Nasal Cannula 2.00 06/28/18 07:02 94 Nasal Cannula 2.00 I & O 06/29/18 07:00 Intake Total 620 ml Output Total 1550 ml Balance -930 ml Height & Weight Height: 5'6.00" Weight: 213lbs. 0.9oz. 96.594273gf; 37.8 BMI Method:Stated General Appearance: No Apparent Distress, WD/WN, Chronically ill, Obese HEENT: PERRL/EOMI, Pharynx Normal Neck: Non Tender, Supple Respiratory: Chest Non Tender, Lungs Clear, Normal Breath Sounds, No Accessory Muscle Use, No Respiratory Distress Cardiovascular: Regular Rate, Rhythm, No Edema, No Gallop, No JVD, No Murmur, Normal Peripheral Pulses Capillary Refill: Less Than 3 Seconds Peripheral Pulses: 2+ Radial Pulses (R), 2+ Radial Pulses (L) Gastrointestinal: normal bowel sounds, non tender, soft, no organomegaly Extremity: Normal Range of Motion, Non Tender Neurologic/Psychiatric: Alert, Disoriented, Other (non-verbal) Skin: Normal Color, Warm/Dry Lymphatic: No Adenopathy Results Lab Laboratory Tests 06/28/18 06:34 06/29/18 05:20 Assessment/Plan Assessment/Plan Acute respiratory failure secondary to pneumonia--- improved Metabolic encephalopathy r/o acute CVA -- pt does have hx of CVA Hypokalemia -Replace COPDAE -DuoNeb Q4 UTI with Sepsis -improved HX of depression -- Acute renal failure -improved -present on admission 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 I will see her in f/u in 4-6 wks. QUINN VELÁZQUEZ DO Jun 29, 2018 06:27
[2018-06-29] MEDS ORDERED: KCL 10 MEQ TAB (MICRO K) PO ONE (06:30)
[2018-06-29] MEDS: DOCUSATE SODIUM 10 MG/ML 10 ML UDC (COLACE) PO SCH ×2 (07:52→21:00)
[2018-06-29] MEDS: PANTOPRAZOLE 40 MG (PROTONIX) VIAL IV SCH (07:52)
[2018-06-29] MEDS: amLODIPine 10 MG (NORVASC) TAB NG SCH (07:52)
[2018-06-29] MEDS: meTOprolol TARTRATE 25 MG (LOPRESSOR) TABLET PO SCH ×2 (07:53→20:57)
[2018-06-29] MEDS: LORATADINE (CLARITIN) 10 MG TAB PO SCH (07:53)
[2018-06-29] MEDS: POLYETHYLENE GLYCOL 17 GM (MIRALAX) PACK PO SCH ×2 (07:53→21:00)
[2018-06-29] MEDS: FLUTICASONE NASAL SPRAY (FLONASE) 16 GM BTL NS SCH (07:53)
--- NOTE | 2018-06-29 08:28 | Progress Note-Hospitalist ---
MELLISA MORAN MEDICAL STUDENT 06/29/18 0828: Subjective HPI/CC On Admission Date Seen by Provider: Jun 29, 2018 Time Seen by Provider: 07:20 Weakness and falls Subjective/Events-last exam Pt had no acute events overnight. Her NG tube was removed as it was barely in per nursing staff and she is tolerating PO intake. Pt is having regular BMs with adequate output in [place]. Pt unable to answer if she has pain and how she is feeling. Focused Exam Respiratory: Chest Non Tender, Lungs Clear, Normal Breath Sounds Cardiovascular: Regular Rate, Rhythm, No Murmur Skin: normal color, warm/dry Objective Exam Vital Signs Vital Signs Date Time Temp Pulse Resp B/P (MAP) Pulse Ox O2 Delivery O2 Flow Rate FiO2 06/29/18 07:07 94 Nasal Cannula 2.00 06/29/18 04:11 98.4 92 18 135/72 (93) 06/26/18 09:05 28 Capillary Refill : Less Than 3 SecondsLess Than 3 Seconds General Appearance: No Apparent Distress, WD/WN Gastrointestinal: Normal Bowel Sounds Neurologic/Psychiatric: Other (Pt unable to consistently answer questions.) Results/Procedures Lab Laboratory Tests 06/29/18 05:20 Patient resulted labs reviewed. Assessment/Plan Assessment and Plan Assess & Plan/Chief Complaint 63 year old female with RA that was found to have UTI, hemoptysis, pneumonia, and severe sepsis that was intubated from 06/13-06/23 and has had altered mental status since extubation. Altered Mental Status: Likely related to metabolic acidosis. CT head unremarkable. Pneumonia/Hemoptysis: WBC now normal, lungs clear, Satting appropriately on 2 L. -On Levaquin. Will discharge without antibiotics. -Will F/U with CXR and Dr. Bautista in clinic in 4-6 weeks. Hypertension: better controlled overnight on same regimen. Hypokalemia -Replace orally -Will consider checking magnesium today. GI -Tolerating PO intake so NG feedings discontinued and NG removed. Dispo: -Working on long-term care placement Diagnosis/Problems Diagnosis/Problems (1) Rheumatoid arthritis Status: Chronic Qualifiers: Rheumatoid arthritis location: unspecified site Rheumatoid factor presence : unspecified presence Qualified Codes: M06.9 - Rheumatoid arthritis, unspecified (2) Hypokalemia Status: Acute (3) Aphasia Status: Acute (4) Poor prognosis Status: Acute (5) Hypertension Status: Chronic Qualifiers: Hypertension type: essential hypertension Qualified Codes: I10 - Essential (primary) hypertension (6) Altered mental status Status: Acute Qualifiers: Altered mental status type: unspecified Qualified Codes: R41.82 - Altered mental status, unspecified Clinical Quality Measures DVT/VTE Risk/Contraindication: VTE Present on Admission: No Risk Factor Score Per Nursin RFS Level Per Nursing on Admit: 4+=Very High Contraindications-Pharm: Other *list below* Other: Lovenox Pneumonia: Pseudomonal Risk: COPD KISHAN CHAVEZ DO 06/29/18 0945: Subjective Subjective/Events-last exam Patient aphasic again today VCV NHP Assessment/Plan Supervisory Addendum Participated in pt care: history Personally performed: exam E&M service: agree Results interpretation: agree Notes: Ready for DC NHP pending DC catheter MELLISA MORAN MEDICAL STUDENT Jun 29, 2018 08:28 KISHAN CHAVEZ DO Jun 29, 2018 09:45
[2018-06-29] MEDS ORDERED: MAGNESIUM OXIDE (MAG-OX)400 MG TAB PO NR (09:15)
[2018-06-29] MEDS ORDERED: ENOX40DI8 SQ (09:38)
[2018-06-29] MEDS ORDERED: POLY17PO23 PO (09:38)
[2018-06-29] MEDS ORDERED: MAGN400T6 PO (09:38)
[2018-06-29] MEDS ORDERED: AMLO10TA6 NG (09:38)
[2018-06-29] MEDS ORDERED: ACET-77 PO (09:38)
[2018-06-29] MEDS ORDERED: TRAM50TA2 PO (09:38)
[2018-06-29] MEDS ORDERED: POTA20PA28 PO (09:38)
--- NOTE | 2018-06-29 09:39 | Discharge Inst-Skilled Nursing ---
Discharge Inst-Skilled NF Patient Instructions Patient Problems: Severe acute on chronic debility Aphasia RA Consult/Follow Up/Orders Follow Up Appt.: [facility] on [facility] rounds Skilled NF Admit to: [facility] Certification (SNF) I certify that SNF services are required to be given on an inpatient basis because of the above named patient's need for half-way care on a continuing basis for the conditions(s) for which he/she was receiving inpatient hospital services prior to his/her transfer to the SNF. [facility] Facility Order: Nursing Services, Therapy Assistant-Evaluate & Treat, Physical Therapy-Evaluate & Treat, Speech Language-Evaluate & Treat Discharge Diet: No Restrictions Daily Activity as Tolerated: Yes New & Resume Previous Orders Lucy Da Silva Jun 29, 2018 09:38 LUCY DA SILVA DO Jun 29, 2018 09:39
--- NOTE | 2018-06-29 10:32 | Discharge Summary-Hospitalist ---
MELLISA MORAN MEDICAL STUDENT 06/29/18 1032: Diagnosis/Chief Complaint Date of Admission Jun 12, 2018 at 19:02 Date of Discharge Discharge Date: Jun 29, 2018 Discharge Diagnosis (1) Rheumatoid arthritis Status: Chronic (2) Hypokalemia Status: Acute (3) Aphasia Status: Acute (4) Poor prognosis Status: Acute (5) Hypertension Status: Chronic (6) Altered mental status Status: Acute Discharge Summary Discharge Physical Exam Allergies: Coded Allergies: Iodinated Contrast- Oral and IV Dye (Verified Allergy, Intermediate, ) doxycycline (Unverified Allergy, Intermediate, FACIAL SWELLING, 03/29/17) fluticasone furoate (Verified Allergy, Intermediate, N/V, 03/29/17) paroxetine (Verified Allergy, Intermediate, 03/29/17) vilanterol (Verified Allergy, Intermediate, N/V, 03/29/17) codeine (Verified Allergy, Unknown, HIVES, Has received morphine in the past w/o issue, 06/20/18) hydrocodone (Unverified Adverse Reaction, Intermediate, DYSPNEA, HIVES, ) oxybutynin (Verified Adverse Reaction, Mild, sores in mouth, 03/29/17) Uncoded Allergies: PAPER TAPE (Allergy, Unknown, BLISTERS/SORES, 07/10/15) Vitals & I&Os General Appearance: No Apparent Distress, WD/WN HEENT: Pharynx Normal Cardiovascular: Regular Rate, Rhythm, No Murmur Gastrointestinal: Normal Bowel Sounds, Non Tender, Soft Skin: Normal Color, Warm/Dry Neurologic/Psychiatric: Alert, Aphasia, Other (Unable to consistently respond verbally to questions. Occasionally nodded head.) Hospital Course 63 year old female with a history of COPD, CVA, and RA on Xeljanz presented to ED on 06/13 via EMS with weakness and falls following months of a cough. EMS noted saturation in 80s that improved with oxygen and she was hypotensive in the ED. Creatinine was elevated consistent with DEBRA that resolved with fluid. CT head was negative. CXR showed new cardiomegaly and bilateral upper lobe infiltrates. UA had significant bacteria. She was started on empiric Rocephin and Azithromycin as well as prednisone. On her first hospital night, had significant hemoptysis with worsening respiratory distress. She was intubated on 06/13. TB quantiferon obtained was negative. Bronchoscopy on 06/15 showed large clots concerning for pulmonary hemorrhage but not active bleeding. Urine culture grew enterococcus and sputum culture grew yeast and e. coli with all bacteria sensitive to Levaquin, which was started in addition to Eraxis. Repeat bronchoscopy on 06/20 showed no further bleeding. Following this bronchoscopy, she was weaned off of the ventilator and extubated on 06/23. After extubation, patient had persistent altered mental status with aphasia. CT head showed no acute process, so mental status was likely secondary to metabolic encephalopathy. Serial CXRs showed resolving pneumonia after 10 day course of antibiotics, so Levaquin, Eraxis, and steroids were discontinued. Given altered mental status, patient required long line teamster nursing care and was discharged to [facility] on 06/29 to follow up with Dr. Bautista in 4-6 weeks. Changes to her medication regimen include Labs (last 24 hrs) Microbiology 06/12/18 Blood Culture - Final, Complete No growth 06/15/18 Mycobacterial Culture - Preliminary, Resulted See Comments 06/12/18 Urine Culture - Final, Complete Enterococcus faecalis Patient resulted labs reviewed. Pending Labs Discussion & Recommendations Discharge Planning: >30 minutes discharge planning Discharge Home Medications: Active Scripts Active Haloperidol 0.5 Mg Tablet 0.5 Mg PO BID 30 Days Magnesium Oxide 400 Mg Tablet 400 Mg PO DAILY 14 Days Potassium Chloride 20 Meq Packet 20 Meq PO DAILY 14 Days Polyethylene Glycol 3350 17 Gm Powd.pack 17 Gm PO BID 30 Days Acetaminophen 500 Mg Tablet 1,000 Mg PO Q8H PRN 30 Days Amlodipine Besylate 10 Mg Tablet 10 Mg NG DAILY 30 Days Enoxaparin Sodium 40 Mg/0.4 Ml Syringe 40 Mg SQ 1200 14 Days Tramadol HCl 50 Mg Tablet 50-100 Mg PO EVERY 4-6 HOURS PRN Venlafaxine HCl ER (Venlafaxine HCl) 150 Mg Cap.er.24h 300 Mg PO DAILY 30 Days Clopidogrel (Clopidogrel Bisulfate) 75 Mg Tablet 75 Mg PO DAILY 30 Days Reported Abilify (Aripiprazole) 5 Mg Tablet 5 Mg PO DAILY Furosemide 20 Mg Tablet 20 Mg PO DAILY Mucus Relief (Guaifenesin) 400 Mg Tablet 400 Mg PO TID PRN Montelukast Sodium 10 Mg Tablet 10 Mg PO HS Dicyclomine HCl 20 Mg Tablet 20 Mg PO DAILY PRN Ventolin Hfa (Albuterol Sulfate) 1 Puff Puff 2 Puff IH Q4H PRN 1 PUFF = 90 MCG Ambien (Zolpidem Tartrate) 5 Mg Tablet 5 Mg PO HS PRN Alprazolam 0.5 Mg Tablet 0.5 Mg PO BID PRN Simvastatin 40 Mg Tablet 40 Mg PO HS Levocetirizine Dihydrochloride 5 Mg Tablet 5 Mg PO DAILY IN EVENING Flonase Allergy Relief (Fluticasone Propionate) 9.9 Ml Nixon.susp 1 Nixon NS BID Pantoprazole Sodium 40 Mg Tablet.dr 40 Mg PO DAILY Dicyclomine HCl 20 Mg Tablet 20 Mg PO BID Gabapentin 600 Mg Tablet 600 Mg PO TID Advair 100-50 Diskus (Fluticasone/Salmeterol) 1 Each Blst.w.dev 1 Puff IH BID LAST FILLED 03-08-18 Cyclobenzaprine HCl 10 Mg Tablet 10 Mg PO BID PRN Xeljanz (Tofacitinib Citrate) 5 Mg Tablet 5 Mg PO BID Metoprolol Tartrate 25 Mg Tablet 25 Mg PO BID LAST FILLED 11-11-17 90 DAYS Instructions to patient/family Please see electronic discharge instructions given to patient. Clinical Quality Measures DVT/VTE Risk/Contraindication: VTE Present on Admission: No Risk Factor Score Per Nursin RFS Level Per Nursing on Admit: 4+=Very High Contraindications-Pharm: Other *list below* Other: Lovenox Pneumonia: Pseudomonal Risk: COPD KISHAN CHAVEZ DO 07/13/18 1315: Discharge Summary Discharge Physical Exam Allergies: Coded Allergies: Iodinated Contrast- Oral and IV Dye (Verified Allergy, Intermediate, ) doxycycline (Unverified Allergy, Intermediate, FACIAL SWELLING, 03/29/17) fluticasone furoate (Verified Allergy, Intermediate, N/V, 03/29/17) paroxetine (Verified Allergy, Intermediate, 03/29/17) vilanterol (Verified Allergy, Intermediate, N/V, 03/29/17) codeine (Verified Allergy, Unknown, HIVES, Has received morphine in the past w/o issue, 06/20/18) hydrocodone (Unverified Adverse Reaction, Intermediate, DYSPNEA, HIVES, ) oxybutynin (Verified Adverse Reaction, Mild, sores in mouth, 03/29/17) Uncoded Allergies: PAPER TAPE (Allergy, Unknown, BLISTERS/SORES, 07/10/15) General Appearance: No Apparent Distress Hospital Course Noted above. I personally have seen and evaluated the patient and performed the physical exam. I agree with the documented assessment and plan. Discussion & Recommendations Discharge Planning: <30 minutes discharge planning Problem Qualifiers (1) Rheumatoid arthritis: Rheumatoid arthritis location: unspecified site Rheumatoid factor presence: unspecified presence Qualified Codes: M06.9 - Rheumatoid arthritis, unspecified (2) Hypertension: Hypertension type: essential hypertension Qualified Codes: I10 - Essential ( primary) hypertension (3) Altered mental status: Altered mental status type: unspecified Qualified Codes: R41.82 - Altered mental status, unspecified MELLISA MORAN MEDICAL STUDENT Jun 29, 2018 10:32 KISHAN CHAVEZ DO Jul 13, 2018 13:15
[2018-06-29] MEDS: diphenhydrAMINE 50 MG/ML INJ (BENADRYL) IV PRN ×2 (10:54→20:57)
--- NOTE | 2018-06-29 10:59 | Physical Therapy Progress Note ---
Therapy Progress Note Pt is wailing and restless. Nurse states she has been in the pt's room numerous times and cannot calm pt. RT attempts Breathing Tx but pt continues to take mask off. Pt is not sen at this time due to agitation. 1, no tx rendered (1030) OMID LOGAN PARALEGAL ASSISTANT Jun 29, 2018 10:59
--- NOTE | 2018-06-29 11:43 | Occ Therapy Progress Note ---
Therapy Progress Note Attempted OT treatment this am. Pt in bed, somewhat alert. Pt moving bilateral UE spontaneously, but is agitated with attempts at therapy. Unable to complete treatment secondary to agitation. RN states plan is for pt to d/c today if possible. Will continue to monitor and complete therapy as pt able to tolerate and participate. 1, visit SINDHU SILVERIO OT Jun 29, 2018 11:43
[2018-06-29] MEDS: ENOXAPARIN 40 MG/0.4 ML (LOVENOX) SYR SQ SCH (14:24)
[2018-06-29] MEDS: ACETAMINOPHEN 500 MG TAB (TYLENOL) PO PRN ×2 (16:33→20:59)
[2018-06-29] MEDS: MAGNESIUM OXIDE (MAG-OX)400 MG TAB PO SCH (17:48)
[2018-06-29] MEDS: ATORVASTATIN 20 MG (LIPITOR) TABLET PO SCH ×2 (20:59→21:03)
[2018-06-30] MEDS: RT-ALBUTEROL/IPRATROPIUM 3 ML (DUONEB) VIAL INH SCH ×6 (02:33→22:17)
[2018-06-30] MEDS: CATHETER FLUSH 10 ML SYR IV SCH ×3 (04:47→21:43)
[2018-06-30] MEDS: diphenhydrAMINE 50 MG/ML INJ (BENADRYL) IV PRN ×2 (04:47→22:55)
[2018-06-30 05:21] LABS: BASOPHILS % (AUTO) 0 % (0-10); EOSINOPHILS # (AUTO) 0.1 10^3/uL (0.0-0.3); EOSINOPHILS % (AUTO) 2 % (0-10); HEMATOCRIT 36 % (35-52); HEMOGLOBIN 12.6 G/DL (11.5-16.0); LYMPHOCYTES # (AUTO) 1.2 X 10^3 (1.0-4.0); LYMPHOCYTES % (AUTO) 16 % (12-44); MEAN CORPUSCULAR HEMOGLOBIN 31 PG (25-34); MEAN CORPUSCULAR HGB CONC 35 G/DL (32-36); MEAN CORPUSCULAR VOLUME 88 FL (80-99); MEAN PLATELET VOLUME 9.8 FL (7.4-10.4); MONOCYTES # (AUTO) 0.6 X 10^3 (0.0-1.0); MONOCYTES % (AUTO) 8 % (0-12); NEUTROPHILS # (AUTO) 5.3 X 10^3 (1.8-7.8); NEUTROPHILS % (AUTO) 74 % (42-75); PLATELET COUNT 218 10^3/uL (130-400); RED BLOOD COUNT 4.09 10^6/uL (4.35-5.85); RED CELL DISTRIBUTION WIDTH 15.6 % (10.0-14.5); WHITE BLOOD COUNT 7.2 10^3/uL (4.3-11.0)
[2018-06-30] MEDS: inSUlin ASPART (NovoLOG) 1 UNIT/0.01 ML (CHARGE PER UNIT) SC SCH ×4 (05:41→23:51)
[2018-06-30 05:42] LABS: BUN/CREATININE RATIO 22; CALCIUM 9.2 MG/DL (8.5-10.1); CARBON DIOXIDE 22 MMOL/L (21-32); CHLORIDE 109 MMOL/L (98-107); CREATININE SERUM 0.63 MG/DL (0.60-1.30); GFR ESTIMATED > 60; GLUCOSE 126 MG/DL (70-105); MAGNESIUM 1.7 MG/DL (1.8-2.4); PHOSPHORUS 2.6 MG/DL (2.3-4.7); POTASSIUM 3.5 MMOL/L (3.6-5.0); SODIUM 141 MMOL/L (135-145)
[2018-06-30] MEDS: KCL 20 MEQ POWDER FOR ORAL SOLUTION NG SCH ×2 (06:24→17:00)
--- NOTE | 2018-06-30 07:31 | Pulmonary Progress Note ---
Sepsis Event Evaluation Height, Weight, BMI Height: 5'6.00" Weight: 213lbs. 0.9oz. 96.754026la; 37.8 BMI Method:Stated Exam Exam Vital Signs Date Time Temp Pulse Resp B/P (MAP) Pulse Ox O2 Delivery O2 Flow Rate FiO2 06/30/18 02:33 95 Room Air 06/29/18 23:44 96.7 83 22 142/72 (95) 93 Room Air 06/29/18 23:00 94 Room Air 06/29/18 20:45 97.0 100 20 169/89 (115) 95 Room Air 06/29/18 20:00 Room Air 06/29/18 16:44 97.6 110 18 143/79 (100) 95 Nasal Cannula 2.00 06/29/18 14:39 91 Room Air 06/29/18 10:28 91 Room Air 06/29/18 10:00 92 92 28 06/29/18 09:00 Nasal Cannula 1.00 06/29/18 08:00 97.5 96 18 151/98 (115) 97 Nasal Cannula 2.00 I & O 06/30/18 07:00 Intake Total 970 ml Output Total 802 ml Balance 168 ml Height & Weight Height: 5'6.00" Weight: 213lbs. 0.9oz. 96.030425cy; 37.8 BMI Method:Stated General Appearance: No Apparent Distress, WD/WN HEENT: Pharynx Normal Neck: Non Tender, Supple Respiratory: Chest Non Tender, Lungs Clear, Normal Breath Sounds Cardiovascular: Regular Rate, Rhythm, No Murmur Capillary Refill: Less Than 3 Seconds Peripheral Pulses: 2+ Radial Pulses (R), 2+ Radial Pulses (L) Gastrointestinal: normal bowel sounds, non tender, soft, no organomegaly Extremity: Normal Range of Motion, Non Tender Neurologic/Psychiatric: Alert, Aphasia, Other (Unable to consistently respond verbally to questions. Occasionally nodded head.) Skin: Normal Color, Warm/Dry Lymphatic: No Adenopathy Results Lab Laboratory Tests 06/29/18 05:20 06/30/18 04:53 Assessment/Plan Assessment/Plan Acute respiratory failure secondary to pneumonia--- improved Metabolic encephalopathy r/o acute CVA -- pt does have hx of CVA COPDAE -DuoNeb Q4 UTI with Sepsis -improved HX of depression -- Acute renal failure -improved -present on admission 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 She is awaiting bed placement. QUINN VELÁZQUEZ DO Jun 30, 2018 07:31
[2018-06-30] MEDS ORDERED: KCL 10 MEQ TAB (MICRO K) PO NR (07:56)
[2018-06-30] MEDS: MAGNESIUM OXIDE (MAG-OX)400 MG TAB PO SCH ×4 (08:40→17:00)
[2018-06-30] MEDS: meTOprolol TARTRATE 25 MG (LOPRESSOR) TABLET PO SCH ×2 (08:41→20:33)
[2018-06-30] MEDS: PANTOPRAZOLE 40 MG (PROTONIX) VIAL IV SCH (08:41)
[2018-06-30] MEDS: FLUTICASONE NASAL SPRAY (FLONASE) 16 GM BTL NS SCH (08:41)
[2018-06-30] MEDS: DOCUSATE SODIUM 10 MG/ML 10 ML UDC (COLACE) PO SCH ×2 (08:41→20:33)
[2018-06-30] MEDS: amLODIPine 10 MG (NORVASC) TAB NG SCH (08:41)
[2018-06-30] MEDS: LORATADINE (CLARITIN) 10 MG TAB PO SCH (08:41)
--- NOTE | 2018-06-30 08:41 | Progress Note-Hospitalist ---
MELLISA MORAN MEDICAL STUDENT 06/30/18 0841: Subjective HPI/CC On Admission Date Seen by Provider: Jun 30, 2018 Time Seen by Provider: 07:10 Weakness and falls Subjective/Events-last exam Pt was loud overnight and cursing at nurses. Benadryl was given. Pt is having regular BMs and urinating well without Rosales, which was removed yesterday. Breathing well on room air. Unable to respond to questions this morning. Focused Exam Respiratory: Chest Non Tender, Lungs Clear Cardiovascular: Regular Rate, Rhythm, No Murmur Objective Exam Vital Signs Vital Signs Date Time Temp Pulse Resp B/P (MAP) Pulse Ox O2 Delivery O2 Flow Rate FiO2 06/30/18 07:28 93 Room Air 06/29/18 23:44 96.7 83 22 142/72 (95) 06/29/18 16:44 2.00 06/29/18 10:00 28 Capillary Refill : Less Than 3 SecondsLess Than 3 Seconds General Appearance: No Apparent Distress, WD/WN Results/Procedures Lab Laboratory Tests 06/30/18 04:53 Patient resulted labs reviewed. Assessment/Plan Assessment and Plan Assess & Plan/Chief Complaint 63 year old female with RA that was found to have UTI, hemoptysis, pneumonia, and severe sepsis that was intubated from 06/13-06/23 and has had altered mental status since extubation. Altered Mental Status: Likely related to metabolic acidosis. CT head unremarkable. Pneumonia/Hemoptysis: WBC now normal, lungs clear, Satting appropriately on room air. -Will discharge without antibiotics. -Will F/U with CXR and Dr. Bautista in clinic in 4-6 weeks. Hypertension: Systolic consistently elvated 140s -160s -Will manage on outpatient basis Hypokalemia: resolving -Replace orally PRN GI -Tolerating PO intake so NG feedings discontinued and NG removed. Dispo: -Remaining inpatient while exterminator termite placement is found. Diagnosis/Problems Diagnosis/Problems (1) Rheumatoid arthritis Status: Chronic Qualifiers: Rheumatoid arthritis location: unspecified site Rheumatoid factor presence : unspecified presence Qualified Codes: M06.9 - Rheumatoid arthritis, unspecified (2) Hypokalemia Status: Acute (3) Aphasia Status: Acute (4) Poor prognosis Status: Acute (5) Hypertension Status: Chronic Qualifiers: Hypertension type: essential hypertension Qualified Codes: I10 - Essential (primary) hypertension (6) Altered mental status Status: Acute Qualifiers: Altered mental status type: unspecified Qualified Codes: R41.82 - Altered mental status, unspecified Clinical Quality Measures DVT/VTE Risk/Contraindication: VTE Present on Admission: No Risk Factor Score Per Nursin RFS Level Per Nursing on Admit: 4+=Very High Contraindications-Pharm: Other *list below* Other: Lovenox Pneumonia: Pseudomonal Risk: COPD KISHAN CHAVEZ DO 06/30/18 1101: Subjective Subjective/Events-last exam Insurance delay for NHP Awaiting dispo Pt has very poor prognosis Objective Exam General Appearance: No Apparent Distress, WD/WN, Chronically ill, Obese, Other (sleeping soundly) Respiratory: Lungs Clear, Normal Breath Sounds Cardiovascular: Regular Rate, Rhythm Skin: Normal Color, Warm/Dry Supervisory-Addendum Brief Supervisory Addendum Participated in pt care: history Personally performed: exam E&M service: agree Results interpretation: agree Notes: I personally have seen and evaluated the patient and performed the physical exam. I agree with the documented assessment and plan. MELLISA MORAN MEDICAL STUDENT Jun 30, 2018 08:41 KISHAN CHAVEZ DO Jun 30, 2018 11:01
[2018-06-30] MEDS: POLYETHYLENE GLYCOL 17 GM (MIRALAX) PACK PO SCH ×2 (08:42→20:33)
--- NOTE | 2018-06-30 09:08 | Speech Therapy Daily Note ---
Speech Daily Progress Note Subjective Date Seen by Provider: Jun 30, 2018 Time Seen by Provider: 08:00 Pt alert in bed. With the help of Nursing turned pt over in bed on her back. She kept repeating "ow ow ow". But when asked where it hurt pt would not respond. Objective Fed pt breakfast of pureed and nectar thick liquids. Pt unable to feed self so METAL MACHINE OPERATOR did. Pt required verbal and tactile cues to form lip seal around spoon. Observed some "abnormal" chewing movements some of the time. Pt did cough after the orange juice x1. This was due to dyscoordination of her swallow. No other s/s of aspiration were observed. Assessment Assessment Current Status: Fair Progress Treatment Plan Continue Plan of Care Speech Short Term Goals Short Term Goals Short Term Goals Follow pt to determine safety of diet. Upgrade pt's diet with appropriate. Time Frame-ST-2 weeks Speech Mat Cleaning Machine Operator Goals Mat Cleaning Machine Operator Goals Pt will tolerate least restrictive diet with no signs/symptoms of aspiration. Time Frame: 2 weeks Speech-Plan Patient/Family Goals Patient/Family Goals: pt unable to state goals due to decreased mental status. Treatment Plan Speech Therapy Treatment Plan: Continue Plan of Care continue to follow pt to determine safety of diet and possible upgrade when appropriate. Frequency: 3 times per week Estimated Hrs Per Day: .25 hour per day Rehab Potential: Fair Time Speech Therapy Time In: 08:00 Speech Therapy Time Out: 08:25 Total Billed Time: 25 Billed Treatment Time 1FARRAH BENGLORYSharon CALERO Jun 30, 2018 09:08
--- NOTE | 2018-06-30 09:47 | Occupational Ther Daily Note ---
OT Current Status-Daily Note Subjective Pt lying in bed, alert. Pt and nrsg completed sponge bath due to pt's cognitive state and resistive behavior towards being handled. Mental Status/Objective Patient Orientation: Person, Unable to Assess, Mumbles Functional [place] Measure 0=Not Assessed/NA 4=Minimal Assistance 1=Total Assistance 5=Supervision or Setup 2=Maximal Assistance 6=Modified [place] 3=Moderate Assistance 7=Complete [place] Attachments: Other-See Comments (PICC) ADL-Treatment Nrsg and therapy completed sponge bath. Pt resisted being moved and would scream out in pain when moved. Pt incontinent of urine. Pt spontaneously moves UE's with full ROM. When rolled to side, pt had redness in her perineal/ buttocks area, cream applied by nsrg assistant boiler operator. Nrsg/therapy donned cleaned gown. After bath, bedding was changed. After therapy, pt lying in bed with HOB raised, call light within reach, all needs met in room. Bathing (FIM): 1 Upper Body (FIM): 1 Toileting (FIM): 1 (Pt incontinent.) OT Short Term Goals Short Term Goals Time Frame: Jul 07, 2018 Grooming(FIM): 3 Transfers (B,C,W/C) (FIM): 2 Additional Short Term Goals: 1-Demonstrate ADL Tasks, 2-Verbalize Understanding , 3-ImproveStrength/[place] 1=Demonstrate adherence to instructed precautions during ADL tasks. 2=Patient will verbalize/demonstrate understanding of assistive devices/ modifications for ADL. 3=Patient will improve strength/tolerance for activity to enable patient to perform ADL's. OT Manager Of Broadcast Content Goals [facility] Goals Time Frame: Jul 21, 2018 Grooming(FIM): 4 Upper Body Dressing(FIM): 4 Lower Body Dressing(FIM): 3 Toileting(FIM): 4 Transfers (B,C,W/C) (FIM): 4 Toilet/Commode Transfer(FIM): 4 Additional Goals: 1-Demonstrate ADL Tasks, 2-Verbalize Understanding, 3- ImproveStrength/[place] 1=Demonstrate adherence to instructed precautions during ADL tasks. 2=Patient will verbalize/demonstrate understanding of assistive devices/ modifications for ADL. 3=Patient will improve strength/tolerance for activity to enable patient to perform ADL's. OT Education/Plan Discharge Recommendations Plan/Recommendations: Continue POC Treatment Plan/Plan of Care Patient would benefit from OT for education, treatment and training to promote independence in ADL's, mobility, safety and/or upper extremity function for ADL' s. Plan of Care: ADL Retraining, Caregiver Training, Cognitive Retraining, Functional Mobility, UE Funct Exercise/Act, UE Neuromus Re-Ed/Coord Treatment Duration: Jul 21, 2018 Frequency: 5 times per week Estimated Hrs Per Day: .5 hour per day Agreement: Yes Rehab Potential: Fair Time/GCodes Start Time: 09:15 Stop Time: 09:38 Total Time Billed (hr/min): 23 Billed Treatment Time 1 visit- ADL 2 (23 min) JEWEL MARCOS Jun 30, 2018 09:47
--- NOTE | 2018-06-30 10:27 | Physical Therapy Daily Note ---
PT Daily Note-Current Subjective Patient is in bed and positioned to side lying left. Patient did assist this PT with repositioning in bed. Pain Numeric Pain Scale: 5-Moderate Pain Location: Soft Tissue Location Body Site: Generalized Pain Description: Ache Comment: FLACC Mental Status Patient Orientation: Confused Transfers Functional [place] Measure 0=Not Assessed/NA 4=Minimal Assistance 1=Total Assistance 5=Supervision or Setup 2=Maximal Assistance 6=Modified [place] 3=Moderate Assistance 7=Complete IndependenceIRFPAI Quality Coding Scale 6 Independent with activity with or without an assistive device 5 Patient requires set up or clean up by helper. Patient completes activity by themselves 4 Supervision or touching assist (CGA). [place] provide cues , steadying assist 3 The helper provides less than half the effort to complete the activity 2 The helper provides more than half the effort to complete the activity 1 Dependent. The helper does all the effort to complete an activity 7 Patient refused to complete or attempt activity 9 The patient did not perform the activity before the current illness or injury 88 Not attempted due to Medical conditions or safety concerns Transfers (B, C, W/C) (FIM): 2 Scootin Rollin Patient assisted with bed mobility to perform exercises. Weight Bearing Right Lower Extremity: Right Full Weight Bearing Left Lower Extremity: Left Full Weight Bearing Exercises Supine Ex: Ankle pumps, Heel Slides, Straight leg raise, Hip abd/add Supine Reps: 15 (2 sets AAROM) Assessment Patient does continue to require Dong lift transfers bed to chair for safety due to weakness, however, patient did actively participate with AAROM bilateral LE and with bed mobility activity, which is an improvement. Patient does appear to be in pain and staff has been informed. PT to continue to increase activity as patient tolerates. PT Short Term Goals Short Term Goals Time Frame: Jul 02, 2018 Transfers (B,C,W/C) (FIM): 2 PT Poultry Buyer Goals Poultry Buyer Goals PT Assisted Goals Time Frame: Aug 06, 2018 Transfers (B,C,W/C) (FIM): 4 Gait (FIM): 2 Gait distance (FIM): 5=866-32 ft Distance: 75' Gait Level of Assist: 4 Gait Assistive Device: FWW PT Plan Treatment/Plan Treatment Plan: Continue Plan of Care Treatment Plan: Bed Mobility, Education, Functional Activity [place], Functional Strength, Gait, Safety, Therapeutic Exercise, Transfers Treatment Duration: Aug 06, 2018 Frequency: 6 times per week (increase as patient improves) Estimated Hrs Per Day: .5 hour per day Patient and/or Family Agrees t: Yes Discharge Recommendations Therapy D/C Recommendations: Halfway Placement, Usp (TCU/NH) Time/GCodes Time In: 956 Time Out: 1009 Total Billed Treatment Time: 13 Total Billed Treatment 1 visit EX 13 min FIDEL JARQUIN PT Jun 30, 2018 10:27
[2018-06-30] MEDS: ENOXAPARIN 40 MG/0.4 ML (LOVENOX) SYR SQ SCH (13:21)
[2018-06-30 16:36] VITALS: BP 120/75
[2018-06-30 20:32] VITALS: BP 138/88
[2018-07-01 00:02] VITALS: BP 118/66
[2018-07-01] MEDS: RT-ALBUTEROL/IPRATROPIUM 3 ML (DUONEB) VIAL INH SCH ×4 (02:35→14:25)
[2018-07-01] MEDS: CATHETER FLUSH 10 ML SYR IV SCH ×3 (05:47→22:18)
[2018-07-01 05:54] LABS: BASOPHILS % (AUTO) 0 % (0-10); EOSINOPHILS # (AUTO) 0.1 10^3/uL (0.0-0.3); EOSINOPHILS % (AUTO) 2 % (0-10); HEMATOCRIT 39 % (35-52); HEMOGLOBIN 13.1 G/DL (11.5-16.0); LYMPHOCYTES # (AUTO) 1.7 X 10^3 (1.0-4.0); LYMPHOCYTES % (AUTO) 19 % (12-44); MEAN CORPUSCULAR HEMOGLOBIN 30 PG (25-34); MEAN CORPUSCULAR HGB CONC 34 G/DL (32-36); MEAN CORPUSCULAR VOLUME 89 FL (80-99); MEAN PLATELET VOLUME 9.5 FL (7.4-10.4); MONOCYTES # (AUTO) 0.6 X 10^3 (0.0-1.0); MONOCYTES % (AUTO) 7 % (0-12); NEUTROPHILS # (AUTO) 6.4 X 10^3 (1.8-7.8); NEUTROPHILS % (AUTO) 72 % (42-75); PLATELET COUNT 232 10^3/uL (130-400); RED BLOOD COUNT 4.35 10^6/uL (4.35-5.85); WHITE BLOOD COUNT 8.9 10^3/uL (4.3-11.0)
[2018-07-01] MEDS: inSUlin ASPART (NovoLOG) 1 UNIT/0.01 ML (CHARGE PER UNIT) SC SCH ×3 (05:54→16:36)
[2018-07-01 06:11] LABS: BUN/CREATININE RATIO 25; CALCIUM 9.8 MG/DL (8.5-10.1); CARBON DIOXIDE 23 MMOL/L (21-32); CHLORIDE 106 MMOL/L (98-107); CREATININE SERUM 0.69 MG/DL (0.60-1.30); GFR ESTIMATED > 60; GLUCOSE 144 MG/DL (70-105); MAGNESIUM 2.2 MG/DL (1.8-2.4); PHOSPHORUS 2.9 MG/DL (2.3-4.7); POTASSIUM 4.7 MMOL/L (3.6-5.0); SODIUM 139 MMOL/L (135-145)
[2018-07-01] MEDS: KCL 20 MEQ POWDER FOR ORAL SOLUTION NG SCH (06:31)
[2018-07-01 08:00] VITALS: BP 136/66
[2018-07-01] MEDS: LORATADINE (CLARITIN) 10 MG TAB PO SCH (08:17)
[2018-07-01] MEDS: MAGNESIUM OXIDE (MAG-OX)400 MG TAB PO SCH ×2 (08:17→17:05)
[2018-07-01] MEDS: amLODIPine 10 MG (NORVASC) TAB NG SCH (08:17)
[2018-07-01] MEDS: meTOprolol TARTRATE 25 MG (LOPRESSOR) TABLET PO SCH ×2 (08:17→20:17)
[2018-07-01] MEDS: ACETAMINOPHEN 500 MG TAB (TYLENOL) PO PRN ×3 (08:19→17:06)
[2018-07-01] MEDS: PANTOPRAZOLE 40 MG (PROTONIX) TAB PO SCH (08:25)
--- NOTE | 2018-07-01 08:41 | Speech Therapy Daily Note ---
Speech Daily Progress Note Subjective Date Seen by Provider: Jul 01, 2018 Time Seen by Provider: 08:10 Pt alert. Said "Hi" upon txist's arrival. Objective Continued PO trials of pureed texture with nectar thick liquids. IMPREGNATOR OPERATOR fed pt as pt unable to use an utensil. She can hold a cup to drink however. No signs/symptoms of aspiration were observed. Still inconsistent with a lip seal around the spoon. Pt very vocal today. Assessment Assessment Current Status: Fair Progress Treatment Plan Continue Plan of Care Speech Short Term Goals Short Term Goals Short Term Goals Follow pt to determine safety of diet. Upgrade pt's diet with appropriate. Time Frame-ST-2 weeks Speech Senior Living Goals Senior Living Goals Pt will tolerate least restrictive diet with no signs/symptoms of aspiration. Time Frame: 2 weeks Speech-Plan Patient/Family Goals Patient/Family Goals: pt unable to state goals. Treatment Plan Speech Therapy Treatment Plan: Continue Plan of Care Pt appears to be tolerating current diet with difficulty. Frequency: 3 times per week Estimated Hrs Per Day: .25 hour per day Rehab Potential: Fair Time Speech Therapy Time In: 08:10 Speech Therapy Time Out: 08:30 Total Billed Time: 30 Billed Treatment Time 1FARRAH RANDSharon CALERO Jul 01, 2018 08:41
[2018-07-01] MEDS: FLUTICASONE NASAL SPRAY (FLONASE) 16 GM BTL NS SCH (09:21)
[2018-07-01] MEDS: POLYETHYLENE GLYCOL 17 GM (MIRALAX) PACK PO SCH ×2 (09:21→20:16)
[2018-07-01] MEDS: DOCUSATE SODIUM 10 MG/ML 10 ML UDC (COLACE) PO SCH ×2 (09:21→20:16)
--- NOTE | 2018-07-01 09:51 | Physical Therapy Daily Note ---
PT Daily Note-Current Subjective Patient is in bed, alert and eating breakfast. Continues to be confused. Pain Numeric Pain Scale: 8 Location: Soft Tissue Location Body Site: Generalized Comment: FLACC Mental Status Patient Orientation: Confused Transfers Functional [place] Measure 0=Not Assessed/NA 4=Minimal Assistance 1=Total Assistance 5=Supervision or Setup 2=Maximal Assistance 6=Modified [place] 3=Moderate Assistance 7=Complete IndependenceIRFPAI Quality Coding Scale 6 Independent with activity with or without an assistive device 5 Patient requires set up or clean up by helper. Patient completes activity by themselves 4 Supervision or touching assist (CGA). [place] provide cues , steadying assist 3 The helper provides less than half the effort to complete the activity 2 The helper provides more than half the effort to complete the activity 1 Dependent. The helper does all the effort to complete an activity 7 Patient refused to complete or attempt activity 9 The patient did not perform the activity before the current illness or injury 88 Not attempted due to Medical conditions or safety concerns Transfers (B, C, W/C) (FIM): 1 Scootin Rollin Supine to/from Sit: 1 Sit to/from Stand: 2 Bed to/from Chair: 2 Patient sat EOB x 14 min with minimal assist to maintain due to on air mattress. Patient did demonstrate ability to sit SBA, however, fatigues with activity. Patient assist with sit to stand and SPT bet to recliner with chair alarm, pad, and omero sling under for staff to utilize if necessary. Weight Bearing Right Lower Extremity: Right Full Weight Bearing Left Lower Extremity: Left Full Weight Bearing Exercises Supine Ex: Ankle pumps, Heel Slides, Straight leg raise, Hip abd/add Supine Reps: 15 (AAROM) Seated Therapy Exercises: Long arc quads Seated Reps: 15 (AAROM) Assessment Patient improving with treatment plan and is actively participating with therapy. Patient continues to be confused, however, was able to follow simple direction on this date. PT to continue to increase activity as tolerated by patient. From a PT standpoint, patient would benefit from extended care facility to continue improving with gross motor skills. 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 Goals Intermediate Goals PT Intermediate Goals Time Frame: Aug 06, 2018 Transfers (B,C,W/C) (FIM): 4 Gait (FIM): 2 Gait distance (FIM): 3=058-89 ft Distance: 75' Gait Level of Assist: 4 Gait Assistive Device: FWW PT Plan Treatment/Plan Treatment Plan: Continue Plan of Care Treatment Plan: Bed Mobility, Education, Functional Activity [place], Functional Strength, Gait, Safety, Therapeutic Exercise, Transfers Treatment Duration: Aug 06, 2018 Frequency: 6 times per week (increase as patient improves) Estimated Hrs Per Day: .5 hour per day Patient and/or Family Agrees t: Yes Time/GCodes Time In: 912 Time Out: 935 Total Billed Treatment Time: 23 Total Billed Treatment 1 visit FA x 2 23 min FIDEL JARQUIN PT Jul 01, 2018 09:51
--- NOTE | 2018-07-01 10:16 | Progress Note-Hospitalist ---
[place] F[employer]MING MED STUDENT 07/01/18 1016: Subjective HPI/CC On Admission Date Seen by Provider: Jul 01, 2018 Time Seen by Provider: 07:50 Weakness and falls Subjective/Events-last exam condition mostly unchanged, very clearly aggitated yelling heard throughout 4th floor patient answered questions with "yes, no, ok" but says nothing else states in no pain heart and lungs clear Objective Exam Vital Signs Vital Signs Date Time Temp Pulse Resp B/P (MAP) Pulse Ox O2 Delivery O2 Flow Rate FiO2 07/01/18 08:00 Room Air 07/01/18 08:00 96.5 95 20 136/66 (89) 97 2.00 06/29/18 10:00 28 Capillary Refill : Less Than 3 SecondsLess Than 3 Seconds General Appearance: WD/WN, Severe Distress HEENT: Normal ENT Inspection, Pharynx Normal Neck: Full Range of Motion, Normal Inspection, Non Tender, Supple Respiratory: Chest Non Tender, Lungs Clear, Normal Breath Sounds, No Accessory Muscle Use, No Respiratory Distress Cardiovascular: Regular Rate, Rhythm, No Edema, No Murmur Gastrointestinal: Non Tender, Soft Back: Normal Inspection, No CVA Tenderness, No Vertebral Tenderness Extremity: Normal Inspection, Normal Range of Motion, Non Tender, No Pedal Edema Neurologic/Psychiatric: Alert; No Normal Mood/Affect; Disoriented Skin: Normal Color, Warm/Dry Lymphatic: No Adenopathy Results/Procedures Lab Laboratory Tests 07/01/18 05:45 Patient resulted labs reviewed. Assessment/Plan Assessment and Plan Assess & Plan/Chief Complaint 63 year old female with RA that was found to have UTI, hemoptysis, pneumonia, and severe sepsis that was intubated from 06/13-06/23 and has had altered mental status since extubation. Altered Mental Status: Likely related to metabolic acidosis. CT head unremarkable. Pneumonia/Hemoptysis: WBC now normal, lungs clear, Satting appropriately on room air. -Will discharge without antibiotics. -Will F/U with CXR and Dr. Bautista in clinic in 4-6 weeks. Hypertension: Systolic consistently elvated 140s -160s -Will manage on outpatient basis Hypokalemia: resolving -Replace orally PRN GI -Tolerating PO intake so NG feedings discontinued and NG removed. 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 Clinical Quality Measures DVT/VTE Risk/Contraindication: VTE Present on Admission: No Risk Factor Score Per Nursin RFS Level Per Nursing on Admit: 4+=Very High Contraindications-Pharm: Other *list below* Other: Lovenox Pneumonia: Pseudomonal Risk: COPD KISHAN CHAVEZ DO 07/01/18 1052: Subjective Subjective/Events-last exam Patient yelling out so I reviewed home meds and will restart Abilify and Haldol was added Assessment/Plan Assessment and Plan Assess & Plan/Chief Complaint Agitation and yelling out noted Abilify home dose and add Haldol PO for yelling out Diagnosis/Problems Diagnosis/Problems (1) Bipolar 1 disorder Status: Chronic (2) Poor prognosis Status: Acute (3) Aphasia Status: Acute (4) Debility Status: Acute Supervisory-Addendum Brief Supervisory Addendum Participated in pt care: history Personally performed: exam E&M service: agree Results interpretation: agree Notes: I personally have seen and evaluated the patient and performed the physical exam. I agree with the documented assessment and plan. [place] F[employer]MING MED STUDENT Jul 01, 2018 10:16 KISHAN CHAVEZ DO Jul 01, 2018 10:52
[2018-07-01] MEDS ORDERED: diphenhydrAMINE 50 MG/ML INJ (BENADRYL) IVP PRN (10:30)
--- NOTE | 2018-07-01 10:37 | Occupational Ther Daily Note ---
OT Current Status-Daily Note Subjective Attempted to see pt. Pt verbalized "Actually, I want to be left alone." GÓMEZ encouraged pt to participate in therapy. Pt stated, "I just want to go home." Mental Status/Objective Patient Orientation: Person, Unable to Assess Functional [place] Measure 0=Not Assessed/NA 4=Minimal Assistance 1=Total Assistance 5=Supervision or Setup 2=Maximal Assistance 6=Modified [place] 3=Moderate Assistance 7=Complete [place] Other Treatment Pt did demonstrate good strength in UE's and B AROM. Pt declined to complete any ADLs at this time. Dependent with donning/doffing socks. Pt vocalized when touched possibly due to pain. After therapy, pt sitting in chair. All needs met in room. OT Short Term Goals Short Term Goals Time Frame: Jul 07, 2018 Grooming(FIM): 3 Transfers (B,C,W/C) (FIM): 2 Additional Short Term Goals: 1-Demonstrate ADL Tasks, 2-Verbalize Understanding , 3-ImproveStrength/[place] 1=Demonstrate adherence to instructed precautions during ADL tasks. 2=Patient will verbalize/demonstrate understanding of assistive devices/ modifications for ADL. 3=Patient will improve strength/tolerance for activity to enable patient to perform ADL's. OT Resident Caregiver Goals Senior Care Goals Time Frame: Jul 21, 2018 Grooming(FIM): 4 Upper Body Dressing(FIM): 4 Lower Body Dressing(FIM): 3 Toileting(FIM): 4 Transfers (B,C,W/C) (FIM): 4 Toilet/Commode Transfer(FIM): 4 Additional Goals: 1-Demonstrate ADL Tasks, 2-Verbalize Understanding, 3- ImproveStrength/[place] 1=Demonstrate adherence to instructed precautions during ADL tasks. 2=Patient will verbalize/demonstrate understanding of assistive devices/ modifications for ADL. 3=Patient will improve strength/tolerance for activity to enable patient to perform ADL's. OT Education/Plan Discharge Recommendations Plan/Recommendations: Continue POC Treatment Plan/Plan of Care Patient would benefit from OT for education, treatment and training to promote independence in ADL's, mobility, safety and/or upper extremity function for ADL' s. Plan of Care: ADL Retraining, Caregiver Training, Cognitive Retraining, Functional Mobility, UE Funct Exercise/Act, UE Neuromus Re-Ed/Coord Treatment Duration: Jul 21, 2018 Frequency: 5 times per week Estimated Hrs Per Day: .5 hour per day Agreement: Yes Rehab Potential: Fair Time/GCodes Start Time: 10:10 Stop Time: 10:30 Total Time Billed (hr/min): 20 Billed Treatment Time 1 visit-FA 1 (20 min) JEWEL MARCOS Jul 01, 2018 10:37
[2018-07-01] MEDS ORDERED: GUAIFENESIN 400 MG PO PRN (11:00)
[2018-07-01] MEDS ORDERED: NON-FORMULARY MEDICATION 1 EA EA (Dicyclomine HCl 20 MG) PO PRN (11:00)
[2018-07-01] MEDS ORDERED: guaiFENesin (MUCINEX) 600 MG TAB PO PRN (11:00)
[2018-07-01] MEDS ORDERED: RT-ALBUTEROL SULF 2.5 MG/3 ML PRE-MIX VIAL IH PRN (11:00)
[2018-07-01] MEDS: HALOPERIDOL 0.5 MG (HALDOL) TAB PO SCH ×3 (11:02→20:16)
[2018-07-01] MEDS: ARIPIPRAZOLE 10 MG (ABILIFY) TAB PO SCH (11:03)
[2018-07-01] MEDS: ENOXAPARIN 40 MG/0.4 ML (LOVENOX) SYR SQ SCH (11:05)
[2018-07-01] MEDS: diphenhydrAMINE 50 MG/ML INJ (BENADRYL) IV PRN (13:59)
[2018-07-01 15:45] VITALS: BP 158/72
[2018-07-01] MEDS ORDERED: HYDROcodone/APAP 5 MG/325 MG (LORTAB) TAB ONE (15:56)
[2018-07-01] MEDS ORDERED: CYCLOBENZAPRINE 10 MG (FLEXERIL) TAB PO PRN (17:00)
[2018-07-01] MEDS: DICYCLOMINE 10 MG (BENTYL) CAP PO PRN (17:05)
[2018-07-01] MEDS ORDERED: RT-ADVAIR HFA 45/21 MCG PER PUFF IH SCH (20:00)
[2018-07-01] MEDS: ATORVASTATIN 20 MG (LIPITOR) TABLET PO SCH (20:17)
[2018-07-01] MEDS: GABAPENTIN 600 MG (NEURONTIN) TAB PO SCH (20:17)
[2018-07-01] MEDS: MONTELUKAST 10 MG (SINGULAIR) TAB PO SCH (20:17)
[2018-07-01] MEDS: NYSTATIN CREAM (MYCOSTATIN) 30 GM TUBE TP SCH (20:32)
[2018-07-01] MEDS ORDERED: NON-FORMULARY MEDICATION 1 EA EA (Fluticasone/Salmeterol (Advair 100-50 Diskus) 1 PUFF) IH SCH (21:00)
[2018-07-02] VITALS: BP 133/85
[2018-07-02] MEDS: inSUlin ASPART (NovoLOG) 1 UNIT/0.01 ML (CHARGE PER UNIT) SC SCH ×5 (00:23→23:43)
[2018-07-02] MEDS: CATHETER FLUSH 10 ML SYR IV SCH ×3 (05:41→21:03)
[2018-07-02 05:52] LABS: BASOPHILS % (AUTO) 0 % (0-10); EOSINOPHILS # (AUTO) 0.1 10^3/uL (0.0-0.3); EOSINOPHILS % (AUTO) 2 % (0-10); HEMATOCRIT 37 % (35-52); HEMOGLOBIN 12.8 G/DL (11.5-16.0); LYMPHOCYTES # (AUTO) 1.8 X 10^3 (1.0-4.0); LYMPHOCYTES % (AUTO) 26 % (12-44); MEAN CORPUSCULAR HEMOGLOBIN 31 PG (25-34); MEAN CORPUSCULAR HGB CONC 35 G/DL (32-36); MEAN CORPUSCULAR VOLUME 88 FL (80-99); MEAN PLATELET VOLUME 9.8 FL (7.4-10.4); MONOCYTES # (AUTO) 0.6 X 10^3 (0.0-1.0); MONOCYTES % (AUTO) 9 % (0-12); NEUTROPHILS # (AUTO) 4.4 X 10^3 (1.8-7.8); NEUTROPHILS % (AUTO) 63 % (42-75); PLATELET COUNT 208 10^3/uL (130-400); RED BLOOD COUNT 4.16 10^6/uL (4.35-5.85); RED CELL DISTRIBUTION WIDTH 15.8 % (10.0-14.5); WHITE BLOOD COUNT 6.9 10^3/uL (4.3-11.0)
[2018-07-02 06:08] LABS: BUN/CREATININE RATIO 25; CALCIUM 9.5 MG/DL (8.5-10.1); CARBON DIOXIDE 25 MMOL/L (21-32); CHLORIDE 103 MMOL/L (98-107); CREATININE SERUM 0.67 MG/DL (0.60-1.30); GFR ESTIMATED > 60; GLUCOSE 129 MG/DL (70-105); MAGNESIUM 2.1 MG/DL (1.8-2.4); PHOSPHORUS 3.5 MG/DL (2.3-4.7); SODIUM 137 MMOL/L (135-145)
[2018-07-02] MEDS: PANTOPRAZOLE 40 MG (PROTONIX) TAB PO SCH (06:26)
[2018-07-02 08:00] VITALS: BP 126/66
--- NOTE | 2018-07-02 08:10 | Progress Note (SOAP) ---
Subjective Subjective/Events-last exam Patient appears to be in good spirits this am. She doesn't report any severe pain. Review of Systems Date Seen by Provider: Jul 02, 2018 Time Seen by Provider: 07:00 Objective Exam Last Set of Vital Signs Vital Signs Date Time Temp Pulse Resp B/P (MAP) Pulse Ox O2 Delivery O2 Flow Rate FiO2 07/02/18 07:30 Room Air 07/02/18 00:00 97.5 92 20 133/85 (101) 93 07/01/18 08:00 2.00 06/29/18 10:00 28 Capillary Refill : Less Than 3 SecondsLess Than 3 Seconds I&O Intake and Output 07/02/18 00:00 Intake Total 1540 ml Balance 1540 ml Intake Oral 1540 ml # Voids 4 # Urine Diapers 4 General: No Acute Distress Lungs: Clear to Auscultation Heart: Regular Rate Abdomen: Soft Skin: No Rashes Results/Procedures Lab Laboratory Tests 07/01/18 18:12: Glucometer 147H 07/02/18 00:21: Glucometer 101 07/02/18 05:39: Glucometer 123H 07/02/18 05:40: White Blood Count 6.9, Red Blood Count 4.16L, Hemoglobin 12.8, Hematocrit 37, Mean Corpuscular Volume 88, Mean Corpuscular Hemoglobin 31, Mean Corpuscular Hemoglobin Concent 35, Red Cell Distribution Width 15.8H, Platelet Count 208, Mean Platelet Volume 9.8, Neutrophils (%) (Auto) 63, Lymphocytes (%) (Auto) 26, Monocytes (%) (Auto) 9, Eosinophils (%) (Auto) 2, Basophils (%) (Auto) 0, Neutrophils # (Auto) 4.4, Lymphocytes # (Auto) 1.8, Monocytes # (Auto) 0.6, Eosinophils # (Auto) 0.1, Basophils # (Auto) 0.0, Sodium Level 137, Potassium Level 4.0, Chloride Level 103, Carbon Dioxide Level 25, Anion Gap 9, Blood Urea Nitrogen 17, Creatinine 0.67, Estimat Glomerular Filtration Rate > 60, BUN/ Creatinine Ratio 25, Glucose Level 129H, Calcium Level 9.5, Phosphorus Level 3.5 , Magnesium Level 2.1 Microbiology 06/12/18 Blood Culture - Final, Complete No growth 06/15/18 Mycobacterial Culture - Preliminary, Resulted See Comments 06/12/18 Urine Culture - Final, Complete Enterococcus faecalis Radiology Date of Exam: 06/12/18 CT HEAD WO-R/O STROKE EXAM: CT HEAD WO-R/O STROKE INDICATION: Leg weakness. Altered mental status. Slurred speech. COMPARISON: CT head without contrast from 08/24/2017. FINDINGS: No intracranial hemorrhage, mass effect, hydrocephalus, or extra-axial fluid collections. No CT evidence of acute infarction. Osseous structures are intact. The visualized paranasal sinuses and mastoids are unremarkable. IMPRESSION: No acute intracranial CT findings. Date of Exam: 06/12/18 CHEST 1 VIEW, AP/PA ONLY INDICATION: Wheezing. EXAMINATION: Portable erect AP chest at 4:42 p.m. FINDINGS: The heart is enlarged and has increased in size since the prior exam of 04/17/2018. Furthermore, in the interval since the prior study, alveolar/interstitial pulmonary infiltrates have developed in the right suprahilar region, the left upper lung and the left midlung. These findings could be secondary to pulmonary edema, pneumonia/atelectasis or a combination of all three. The periphery of the right lung is generally clear and there is no significant pleural effusion in either lung base. The mediastinum is not widened. The osseous structures are intact. There is a loop recorder device again noted overlying the left thorax. IMPRESSION: The appearance of the chest has worsened since the prior study as the heart has increased in size and alveolar/interstitial pulmonary infiltrates have developed, bilaterally, particularly on the left. These abnormal parenchymal densities may be related to pulmonary edema, pneumonia, atelectasis or a combination of all three. A followup exam would be recommended for continued evaluation. Date of Exam: 06/13/18 CHEST 1 VIEW, AP/PA ONLY INDICATION: Followup of infiltrates with shortness of breath. FINDINGS: Bilateral dense infiltrates noted in the upper lobes bilaterally. Moderate perihilar infiltrate noted in the left lower lobe as well. Right lower lung appears clear. The heart is mildly enlarged and has increased in size since 04/17/2018. No evidence of pleural effusion. No pneumothorax. IMPRESSION: 1. Increasing cardiac size. 2. Bilateral infiltrates present increasing in density since previous exam. These could represent inflammatory infiltrates or increasing pulmonary edema. Assessment/Plan Assessment/Plan Assessment & Plan 1. Pneumonia/Hemoptysis c sepsis -Will F/U with CXR and Dr. Bautista in clinic in 4-6 weeks. -awaiting placement 2. UTI treated 3. AMS--improved 4. Hypertension -Will manage on outpatient basis 5. Hypokalemia: resolving -Replace orally PRN 6. RA -improved now since on gabapentin and her regular RA treatment meds Clinical Quality Measures DVT/VTE Risk/Contraindication: VTE Present on Admission: No Risk Factor Score Per Nursin RFS Level Per Nursing on Admit: 4+=Very High Contraindications-Pharm: Other *list below* Other: Lovenox Pneumonia: Pseudomonal Risk: COPD SHAYNA NASSAR MD Jul 02, 2018 08:10
[2018-07-02] MEDS ORDERED: NON-FORMULARY MEDICATION 1 EA EA (Aripiprazole (Abilify) 5 MG) PO SCH (09:00)
[2018-07-02] MEDS ORDERED: NON-FORMULARY MEDICATION 1 EA EA (Potassium Chloride 10 MEQ) PO SCH (09:00)
[2018-07-02] MEDS: ARIPIPRAZOLE 10 MG (ABILIFY) TAB PO SCH (09:01)
[2018-07-02] MEDS: MAGNESIUM OXIDE (MAG-OX)400 MG TAB PO SCH ×2 (09:01→18:00)
[2018-07-02] MEDS: meTOprolol TARTRATE 25 MG (LOPRESSOR) TABLET PO SCH ×2 (09:01→21:01)
[2018-07-02] MEDS: GABAPENTIN 600 MG (NEURONTIN) TAB PO SCH ×3 (09:02→21:01)
[2018-07-02] MEDS: POLYETHYLENE GLYCOL 17 GM (MIRALAX) PACK PO SCH ×2 (09:02→21:01)
[2018-07-02] MEDS: DOCUSATE SODIUM 10 MG/ML 10 ML UDC (COLACE) PO SCH ×2 (09:02→21:01)
[2018-07-02] MEDS: HALOPERIDOL 0.5 MG (HALDOL) TAB PO SCH ×3 (09:02→21:03)
[2018-07-02] MEDS: KCL 10 MEQ TAB (MICRO K) PO SCH (09:02)
[2018-07-02] MEDS: amLODIPine 10 MG (NORVASC) TAB NG SCH (09:03)
[2018-07-02] MEDS: NYSTATIN CREAM (MYCOSTATIN) 30 GM TUBE TP SCH ×3 (09:03→21:02)
[2018-07-02] MEDS: LORATADINE (CLARITIN) 10 MG TAB PO SCH (09:03)
[2018-07-02] MEDS: FUROSEMIDE 20 MG (LASIX) TAB PO SCH (09:03)
[2018-07-02] MEDS: FLUTICASONE NASAL SPRAY (FLONASE) 16 GM BTL NS SCH (09:03)
--- NOTE | 2018-07-02 09:37 | Physical Therapy Progress Note ---
Therapy Progress Note Attempted bed exercises with PT. Pt initially agreeable but unable to remain awake to participate despite VCS, tactile cues. VALERIE BOSS DPT Jul 02, 2018 09:37
[2018-07-02] MEDS: ENOXAPARIN 40 MG/0.4 ML (LOVENOX) SYR SQ SCH (12:01)
[2018-07-02 16:47] VITALS: BP 119/69
[2018-07-02] MEDS: ATORVASTATIN 20 MG (LIPITOR) TABLET PO SCH (21:01)
[2018-07-02] MEDS: MONTELUKAST 10 MG (SINGULAIR) TAB PO SCH (21:01)
[2018-07-03] VITALS: BP 118/56
[2018-07-03] MEDS: PANTOPRAZOLE 40 MG (PROTONIX) TAB PO SCH (06:21)
[2018-07-03] MEDS: CATHETER FLUSH 10 ML SYR IV SCH ×3 (06:21→20:01)
[2018-07-03] MEDS: inSUlin ASPART (NovoLOG) 1 UNIT/0.01 ML (CHARGE PER UNIT) SC SCH ×3 (06:21→18:36)
[2018-07-03 06:35] LABS: BASOPHILS % (AUTO) 0 % (0-10); EOSINOPHILS # (AUTO) 0.1 10^3/uL (0.0-0.3); EOSINOPHILS % (AUTO) 1 % (0-10); HEMATOCRIT 38 % (35-52); HEMOGLOBIN 12.9 G/DL (11.5-16.0); LYMPHOCYTES # (AUTO) 1.8 X 10^3 (1.0-4.0); LYMPHOCYTES % (AUTO) 24 % (12-44); MEAN CORPUSCULAR HEMOGLOBIN 30 PG (25-34); MEAN CORPUSCULAR HGB CONC 34 G/DL (32-36); MEAN CORPUSCULAR VOLUME 88 FL (80-99); MONOCYTES # (AUTO) 0.8 X 10^3 (0.0-1.0); MONOCYTES % (AUTO) 10 % (0-12); NEUTROPHILS # (AUTO) 4.9 X 10^3 (1.8-7.8); NEUTROPHILS % (AUTO) 64 % (42-75); PLATELET COUNT 216 10^3/uL (130-400); RED BLOOD COUNT 4.32 10^6/uL (4.35-5.85); RED CELL DISTRIBUTION WIDTH 15.8 % (10.0-14.5); WHITE BLOOD COUNT 7.6 10^3/uL (4.3-11.0)
[2018-07-03 06:51] LABS: BUN/CREATININE RATIO 21; CALCIUM 9.1 MG/DL (8.5-10.1); CARBON DIOXIDE 24 MMOL/L (21-32); CHLORIDE 102 MMOL/L (98-107); CREATININE SERUM 0.77 MG/DL (0.60-1.30); GFR ESTIMATED > 60; GLUCOSE 169 MG/DL (70-105); MAGNESIUM 2.1 MG/DL (1.8-2.4); PHOSPHORUS 3.2 MG/DL (2.3-4.7); POTASSIUM 3.7 MMOL/L (3.6-5.0); SODIUM 135 MMOL/L (135-145)
[2018-07-03 08:00] VITALS: BP 125/71
--- NOTE | 2018-07-03 08:36 | Progress Note (SOAP) ---
Subjective Subjective/Events-last exam Patient is pleasant this morning. She appears to be in no pain. She is tolerating regular diet. She is awaiting placement. Review of Systems Date Seen by Provider: Jul 03, 2018 Time Seen by Provider: 07:50 Objective Exam Last Set of Vital Signs Vital Signs Date Time Temp Pulse Resp B/P (MAP) Pulse Ox O2 Delivery O2 Flow Rate FiO2 07/03/18 02:46 Room Air 07/03/18 00:00 98.1 92 18 118/56 (76) 93 07/02/18 08:00 2.00 06/29/18 10:00 28 Capillary Refill : Less Than 3 SecondsLess Than 3 Seconds I&O Intake and Output 07/03/18 00:00 Intake Total 670 ml Balance 670 ml Intake Oral 670 ml # Voids 4 # Urine Diapers 5 General: No Acute Distress Lungs: Clear to Auscultation Heart: Regular Rate Skin: No Rashes Psych/Mental Status: Mental Status NL, Mood NL Results/Procedures Lab Laboratory Tests 07/02/18 11:58: Glucometer 119H 07/02/18 17:46: Glucometer 120H 07/02/18 23:42: Glucometer 110 07/03/18 06:19: Glucometer 159H 07/03/18 06:20: White Blood Count 7.6, Red Blood Count 4.32L, Hemoglobin 12.9, Hematocrit 38, Mean Corpuscular Volume 88, Mean Corpuscular Hemoglobin 30, Mean Corpuscular Hemoglobin Concent 34, Red Cell Distribution Width 15.8H, Platelet Count 216, Mean Platelet Volume 10.0, Neutrophils (%) (Auto) 64, Lymphocytes (%) (Auto) 24 , Monocytes (%) (Auto) 10, Eosinophils (%) (Auto) 1, Basophils (%) (Auto) 0, Neutrophils # (Auto) 4.9, Lymphocytes # (Auto) 1.8, Monocytes # (Auto) 0.8, Eosinophils # (Auto) 0.1, Basophils # (Auto) 0.0, Sodium Level 135, Potassium Level 3.7, Chloride Level 102, Carbon Dioxide Level 24, Anion Gap 9, Blood Urea Nitrogen 16, Creatinine 0.77, Estimat Glomerular Filtration Rate > 60, BUN/ Creatinine Ratio 21, Glucose Level 169H, Calcium Level 9.1, Phosphorus Level 3.2 , Magnesium Level 2.1 Microbiology 06/12/18 Blood Culture - Final, Complete No growth 06/15/18 Mycobacterial Culture - Preliminary, Resulted See Comments 06/12/18 Urine Culture - Final, Complete Enterococcus faecalis Radiology Date of Exam: 06/12/18 CT HEAD WO-R/O STROKE EXAM: CT HEAD WO-R/O STROKE INDICATION: Leg weakness. Altered mental status. Slurred speech. COMPARISON: CT head without contrast from 08/24/2017. FINDINGS: No intracranial hemorrhage, mass effect, hydrocephalus, or extra-axial fluid collections. No CT evidence of acute infarction. Osseous structures are intact. The visualized paranasal sinuses and mastoids are unremarkable. IMPRESSION: No acute intracranial CT findings. Date of Exam: 06/12/18 CHEST 1 VIEW, AP/PA ONLY INDICATION: Wheezing. EXAMINATION: Portable erect AP chest at 4:42 p.m. FINDINGS: The heart is enlarged and has increased in size since the prior exam of 04/17/2018. Furthermore, in the interval since the prior study, alveolar/interstitial pulmonary infiltrates have developed in the right suprahilar region, the left upper lung and the left midlung. These findings could be secondary to pulmonary edema, pneumonia/atelectasis or a combination of all three. The periphery of the right lung is generally clear and there is no significant pleural effusion in either lung base. The mediastinum is not widened. The osseous structures are intact. There is a loop recorder device again noted overlying the left thorax. IMPRESSION: The appearance of the chest has worsened since the prior study as the heart has increased in size and alveolar/interstitial pulmonary infiltrates have developed, bilaterally, particularly on the left. These abnormal parenchymal densities may be related to pulmonary edema, pneumonia, atelectasis or a combination of all three. A followup exam would be recommended for continued evaluation. Date of Exam: 06/13/18 CHEST 1 VIEW, AP/PA ONLY INDICATION: Followup of infiltrates with shortness of breath. FINDINGS: Bilateral dense infiltrates noted in the upper lobes bilaterally. Moderate perihilar infiltrate noted in the left lower lobe as well. Right lower lung appears clear. The heart is mildly enlarged and has increased in size since 04/17/2018. No evidence of pleural effusion. No pneumothorax. IMPRESSION: 1. Increasing cardiac size. 2. Bilateral infiltrates present increasing in density since previous exam. These could represent inflammatory infiltrates or increasing pulmonary edema. Assessment/Plan Assessment/Plan Assessment & Plan 1. Pneumonia/Hemoptysis c sepsis -Will F/U with CXR and Dr. Bautista in clinic in 4-6 weeks. -awaiting placement 07/03 -Resolved 2. UTI treated 3. AMS--improved 4. Hypertension -Will manage on outpatient basis 5. Hypokalemia: resolving -Replace orally PRN 6. RA -improved now since on gabapentin and her regular RA treatment meds 07/03 -Markedly improved on her medications -Awaiting placement at [facility] and suspect she will be transferred there tomorrow. Clinical Quality Measures DVT/VTE Risk/Contraindication: VTE Present on Admission: No Risk Factor Score Per Nursin RFS Level Per Nursing on Admit: 4+=Very High Contraindications-Pharm: Other *list below* Other: Lovenox Pneumonia: Pseudomonal Risk: COPD SHAYNA NASSAR MD Jul 03, 2018 08:35
[2018-07-03] MEDS: DOCUSATE SODIUM 10 MG/ML 10 ML UDC (COLACE) PO SCH ×2 (08:48→20:00)
[2018-07-03] MEDS: KCL 10 MEQ TAB (MICRO K) PO SCH (08:48)
[2018-07-03] MEDS: FLUTICASONE NASAL SPRAY (FLONASE) 16 GM BTL NS SCH (08:48)
[2018-07-03] MEDS: NYSTATIN CREAM (MYCOSTATIN) 30 GM TUBE TP SCH ×3 (08:48→20:00)
[2018-07-03] MEDS: ARIPIPRAZOLE 10 MG (ABILIFY) TAB PO SCH (08:48)
[2018-07-03] MEDS: HALOPERIDOL 0.5 MG (HALDOL) TAB PO SCH ×3 (08:49→20:00)
[2018-07-03] MEDS: MAGNESIUM OXIDE (MAG-OX)400 MG TAB PO SCH ×2 (08:49→17:44)
[2018-07-03] MEDS: amLODIPine 10 MG (NORVASC) TAB NG SCH (08:49)
[2018-07-03] MEDS: meTOprolol TARTRATE 25 MG (LOPRESSOR) TABLET PO SCH ×2 (08:49→20:00)
[2018-07-03] MEDS: FUROSEMIDE 20 MG (LASIX) TAB PO SCH (08:49)
[2018-07-03] MEDS: POLYETHYLENE GLYCOL 17 GM (MIRALAX) PACK PO SCH ×2 (08:49→20:00)
[2018-07-03] MEDS: GABAPENTIN 600 MG (NEURONTIN) TAB PO SCH ×3 (08:49→20:00)
[2018-07-03] MEDS: LORATADINE (CLARITIN) 10 MG TAB PO SCH (08:49)
[2018-07-03 09:40] VITALS: BP 78/40
[2018-07-03] MEDS: ENOXAPARIN 40 MG/0.4 ML (LOVENOX) SYR SQ SCH (12:06)
[2018-07-03 16:12] VITALS: BP 124/68
[2018-07-03] MEDS: MONTELUKAST 10 MG (SINGULAIR) TAB PO SCH (20:00)
[2018-07-03] MEDS: ATORVASTATIN 20 MG (LIPITOR) TABLET PO SCH (20:00)
[2018-07-04] MEDS: inSUlin ASPART (NovoLOG) 1 UNIT/0.01 ML (CHARGE PER UNIT) SC SCH ×3 (00:15→12:49)
[2018-07-04 00:18] VITALS: BP 122/74
[2018-07-04] MEDS: PANTOPRAZOLE 40 MG (PROTONIX) TAB PO SCH (05:58)
[2018-07-04] MEDS: CATHETER FLUSH 10 ML SYR IV SCH ×2 (05:58→13:46)
[2018-07-04 06:05] LABS: BASOPHILS % (AUTO) 0 % (0-10); EOSINOPHILS # (AUTO) 0.1 10^3/uL (0.0-0.3); EOSINOPHILS % (AUTO) 2 % (0-10); HEMATOCRIT 35 % (35-52); HEMOGLOBIN 12.4 G/DL (11.5-16.0); LYMPHOCYTES % (AUTO) 34 % (12-44); MEAN CORPUSCULAR HEMOGLOBIN 31 PG (25-34); MEAN CORPUSCULAR HGB CONC 35 G/DL (32-36); MEAN CORPUSCULAR VOLUME 89 FL (80-99); MEAN PLATELET VOLUME 9.9 FL (7.4-10.4); MONOCYTES # (AUTO) 0.6 X 10^3 (0.0-1.0); MONOCYTES % (AUTO) 11 % (0-12); NEUTROPHILS % (AUTO) 53 % (42-75); PLATELET COUNT 189 10^3/uL (130-400); RED BLOOD COUNT 3.99 10^6/uL (4.35-5.85); RED CELL DISTRIBUTION WIDTH 15.8 % (10.0-14.5); WHITE BLOOD COUNT 5.7 10^3/uL (4.3-11.0)
[2018-07-04 06:20] LABS: BUN/CREATININE RATIO 18; CALCIUM 9.3 MG/DL (8.5-10.1); CARBON DIOXIDE 25 MMOL/L (21-32); CHLORIDE 103 MMOL/L (98-107); CREATININE SERUM 0.76 MG/DL (0.60-1.30); GFR ESTIMATED > 60; GLUCOSE 135 MG/DL (70-105); MAGNESIUM 2.2 MG/DL (1.8-2.4); PHOSPHORUS 3.4 MG/DL (2.3-4.7); POTASSIUM 3.6 MMOL/L (3.6-5.0); SODIUM 137 MMOL/L (135-145)
[2018-07-04 08:00] VITALS: BP 144/66
--- NOTE | 2018-07-04 09:16 | Progress Note (SOAP) ---
ROSA BENITEZ MEDICAL STUDENT 07/04/18 9:16am: Subjective Subjective/Events-last exam Pt well appearing and conversational this morning. Denies pain or any complaint and states she is feeling much better. She was aware of plan for placement in SNF. Review of Systems Date Seen by Provider: Jul 04, 2018 Time Seen by Provider: 08:15 General: No Chills, No Fatigue, No Malaise HEENT: No Head Aches, No Visual Changes, No Dysphasia Pulmonary: No Dyspnea, No Cough Cardiovascular: No: Chest Pain, Palpitations, Edema Gastrointestinal: No: Nausea, Vomiting, Abdominal Pain, Diarrhea Genitourinary: No Dysuria, No Frequency Neurological: No: Weakness, Numbness, Incoordination, Change in speech, Confusion Objective Exam Last Set of Vital Signs Vital Signs Date Time Temp Pulse Resp B/P (MAP) Pulse Ox O2 Delivery O2 Flow Rate FiO2 07/04/18 00:18 98.2 96 17 122/74 (90) 95 Room Air 07/03/18 08:00 2.00 06/29/18 10:00 28 Capillary Refill : Less Than 3 SecondsLess Than 3 Seconds I&O Intake and Output 07/04/18 00:00 Intake Total 2490 ml Output Total 203 ml Balance 2287 ml Intake Oral 2490 ml Output Urine Total 200 ml Stool Total 3 ml # Voids 5 General: Alert, Oriented X3, Cooperative, No Acute Distress HEENT: PERRLA, EOMI Neck: Supple, No Thyromegaly Lungs: Clear to Auscultation, Normal Air Movement Heart: Regular Rate, Normal S1, Normal S2, No Murmurs Abdomen: Normal Bowel Sounds, Soft, No Tenderness, No Masses Extremities: No Cyanosis, No Edema Skin: No Rashes, No Breakdown Neuro: Normal Speech Psych/Mental Status: Mental Status NL, Mood NL Results/Procedures Lab Laboratory Tests 07/03/18 09:26: Glucometer 256H 07/03/18 12:00: Glucometer 164H 07/03/18 18:16: Glucometer 174H 07/03/18 23:50: Glucometer 125H 07/04/18 05:03: Glucometer 117H 07/04/18 06:00: White Blood Count 5.7, Red Blood Count 3.99L, Hemoglobin 12.4, Hematocrit 35, Mean Corpuscular Volume 89, Mean Corpuscular Hemoglobin 31, Mean Corpuscular Hemoglobin Concent 35, Red Cell Distribution Width 15.8H, Platelet Count 189, Mean Platelet Volume 9.9, Neutrophils (%) (Auto) 53, Lymphocytes (%) (Auto) 34, Monocytes (%) (Auto) 11, Eosinophils (%) (Auto) 2, Basophils (%) (Auto) 0, Neutrophils # (Auto) 3.0, Lymphocytes # (Auto) 2.0, Monocytes # (Auto) 0.6, Eosinophils # (Auto) 0.1, Basophils # (Auto) 0.0, Sodium Level 137, Potassium Level 3.6, Chloride Level 103, Carbon Dioxide Level 25, Anion Gap 9, Blood Urea Nitrogen 14, Creatinine 0.76, Estimat Glomerular Filtration Rate > 60, BUN/ Creatinine Ratio 18, Glucose Level 135H, Calcium Level 9.3, Phosphorus Level 3.4 , Magnesium Level 2.2 Microbiology 06/12/18 Blood Culture - Final, Complete No growth 06/15/18 Mycobacterial Culture - Preliminary, Resulted See Comments 06/12/18 Urine Culture - Final, Complete Enterococcus faecalis Radiology Date of Exam: 06/12/18 CT HEAD WO-R/O STROKE EXAM: CT HEAD WO-R/O STROKE INDICATION: Leg weakness. Altered mental status. Slurred speech. COMPARISON: CT head without contrast from 08/24/2017. FINDINGS: No intracranial hemorrhage, mass effect, hydrocephalus, or extra-axial fluid collections. No CT evidence of acute infarction. Osseous structures are intact. The visualized paranasal sinuses and mastoids are unremarkable. IMPRESSION: No acute intracranial CT findings. Date of Exam: 06/12/18 CHEST 1 VIEW, AP/PA ONLY INDICATION: Wheezing. EXAMINATION: Portable erect AP chest at 4:42 p.m. FINDINGS: The heart is enlarged and has increased in size since the prior exam of 04/17/2018. Furthermore, in the interval since the prior study, alveolar/interstitial pulmonary infiltrates have developed in the right suprahilar region, the left upper lung and the left midlung. These findings could be secondary to pulmonary edema, pneumonia/atelectasis or a combination of all three. The periphery of the right lung is generally clear and there is no significant pleural effusion in either lung base. The mediastinum is not widened. The osseous structures are intact. There is a loop recorder device again noted overlying the left thorax. IMPRESSION: The appearance of the chest has worsened since the prior study as the heart has increased in size and alveolar/interstitial pulmonary infiltrates have developed, bilaterally, particularly on the left. These abnormal parenchymal densities may be related to pulmonary edema, pneumonia, atelectasis or a combination of all three. A followup exam would be recommended for continued evaluation. Date of Exam: 06/13/18 CHEST 1 VIEW, AP/PA ONLY INDICATION: Followup of infiltrates with shortness of breath. FINDINGS: Bilateral dense infiltrates noted in the upper lobes bilaterally. Moderate perihilar infiltrate noted in the left lower lobe as well. Right lower lung appears clear. The heart is mildly enlarged and has increased in size since 04/17/2018. No evidence of pleural effusion. No pneumothorax. IMPRESSION: 1. Increasing cardiac size. 2. Bilateral infiltrates present increasing in density since previous exam. These could represent inflammatory infiltrates or increasing pulmonary edema. Assessment/Plan Assessment/Plan Assessment & Plan 1. Pneumonia/Hemoptysis c sepsis -Will F/U with CXR and Dr. Bautista in clinic in 4-6 weeks. -awaiting placement 07/03 -Resolved 2. UTI treated 3. AMS--improved 4. Hypertension -Will manage on outpatient basis 5. Hypokalemia: resolving -Replace orally PRN 6. RA -improved now since on gabapentin and her regular RA treatment meds 07/03 -Markedly improved on her medications 07/04: Awaiting placement at [facility]. Should be transferred today. Clinical Quality Measures DVT/VTE Risk/Contraindication: VTE Present on Admission: No Risk Factor Score Per Nursin RFS Level Per Nursing on Admit: 4+=Very High Contraindications-Pharm: Other *list below* Other: Lovenox Pneumonia: Pseudomonal Risk: COPD AMBER LEON MD 07/04/18 2:36pm: Subjective Subjective/Events-last exam Patient states that she is feeling better this AM. Still requiring assistance with ambulation. Lives home alone. No stairs in home. Tolerating PO diet. States that pain is better. Assessment/Plan Assessment/Plan Assessment & Plan Patient seen and evaluated with Rosa Benitez, MS3 Patient continues to improve but not stable enough to return home alone. Recommend SNF with PT for safe discharge. Plan to d/c to [facility] today. MD PENNY Barraza TYLER MEDICAL STUDENT Jul 04, 2018 9:16 am AMBER LEON MD Jul 04, 2018 2:36 pm
[2018-07-04] MEDS: ARIPIPRAZOLE 10 MG (ABILIFY) TAB PO SCH (10:03)
[2018-07-04] MEDS: meTOprolol TARTRATE 25 MG (LOPRESSOR) TABLET PO SCH (10:04)
[2018-07-04] MEDS: GABAPENTIN 600 MG (NEURONTIN) TAB PO SCH ×2 (10:04→13:45)
[2018-07-04] MEDS: FUROSEMIDE 20 MG (LASIX) TAB PO SCH (10:04)
[2018-07-04] MEDS: KCL 10 MEQ TAB (MICRO K) PO SCH (10:04)
[2018-07-04] MEDS: HALOPERIDOL 0.5 MG (HALDOL) TAB PO SCH ×2 (10:05→13:45)
[2018-07-04] MEDS: amLODIPine 10 MG (NORVASC) TAB NG SCH (10:05)
[2018-07-04] MEDS: MAGNESIUM OXIDE (MAG-OX)400 MG TAB PO SCH (10:05)
[2018-07-04] MEDS: LORATADINE (CLARITIN) 10 MG TAB PO SCH (10:05)
[2018-07-04] MEDS: DOCUSATE SODIUM 10 MG/ML 10 ML UDC (COLACE) PO SCH (10:05)
[2018-07-04] MEDS: FLUTICASONE NASAL SPRAY (FLONASE) 16 GM BTL NS SCH (10:06)
[2018-07-04] MEDS: POLYETHYLENE GLYCOL 17 GM (MIRALAX) PACK PO SCH (10:06)
[2018-07-04] MEDS: NYSTATIN CREAM (MYCOSTATIN) 30 GM TUBE TP SCH ×2 (10:07→13:46)
--- NOTE | 2018-07-04 10:35 | Occupational Ther Daily Note ---
OT Current Status-Daily Note Subjective Pt alert, lying in bed. No c/o pain. Pt was pleasant and seemed in good spirits. Mental Status/Objective Patient Orientation: Person, Place, Time, Situation Functional [place] Measure 0=Not Assessed/NA 4=Minimal Assistance 1=Total Assistance 5=Supervision or Setup 2=Maximal Assistance 6=Modified [place] 3=Moderate Assistance 7=Complete [place] ADL-Treatment Pt agreed to sponge bath given by therapy and nrsg. Pt able to cleanse B UE and face after handed wash cloth, fatiguing quickly. Therapy and nrsg completed rest. Pt was able to initiate rolling, assist to roll to side. Pt able to stay on side holding onto bed rail. Pt was able to lift upper extremities to thread into hospital gown. Pt has progressed extremely well. Pt participated in therapy. After therapy, pt lying in bed with call light/phone within reach. All needs met in room. Grooming (FIM): 5 Bathing (FIM): 1 Bathing Location: L Arm, R Arm OT Short Term Goals Short Term Goals Time Frame: Jul 07, 2018 Grooming(FIM): 3 Transfers (B,C,W/C) (FIM): 2 Additional Short Term Goals: 1-Demonstrate ADL Tasks, 2-Verbalize Understanding , 3-ImproveStrength/[place] 1=Demonstrate adherence to instructed precautions during ADL tasks. 2=Patient will verbalize/demonstrate understanding of assistive devices/ modifications for ADL. 3=Patient will improve strength/tolerance for activity to enable patient to perform ADL's. OT Pre Wave Assembler Goals Pre Wave Assembler Goals Time Frame: Jul 21, 2018 Grooming(FIM): 4 Upper Body Dressing(FIM): 4 Lower Body Dressing(FIM): 3 Toileting(FIM): 4 Transfers (B,C,W/C) (FIM): 4 Toilet/Commode Transfer(FIM): 4 Additional Goals: 1-Demonstrate ADL Tasks, 2-Verbalize Understanding, 3- ImproveStrength/[place] 1=Demonstrate adherence to instructed precautions during ADL tasks. 2=Patient will verbalize/demonstrate understanding of assistive devices/ modifications for ADL. 3=Patient will improve strength/tolerance for activity to enable patient to perform ADL's. OT Education/Plan Discharge Recommendations Plan/Recommendations: Continue POC Treatment Plan/Plan of Care Patient would benefit from OT for education, treatment and training to promote independence in ADL's, mobility, safety and/or upper extremity function for ADL' s. Plan of Care: ADL Retraining, Caregiver Training, Cognitive Retraining, Functional Mobility, UE Funct Exercise/Act, UE Neuromus Re-Ed/Coord Treatment Duration: Jul 21, 2018 Frequency: 5 times per week Estimated Hrs Per Day: .5 hour per day Agreement: Yes Rehab Potential: Fair Time/GCodes Start Time: 10:10 Stop Time: 10:30 Total Time Billed (hr/min): 20 Billed Treatment Time 1 visit- ADL 1 (20 min) JEWEL MARCOS Jul 04, 2018 10:35
--- NOTE | 2018-07-04 11:28 | Physical Therapy Daily Note ---
PT Daily Note-Current Subjective Patient is alert and oriented. Agrees to PT. Pain Numeric Pain Scale: 3 Location: Soft Tissue Location Body Site: Generalized Pain Description: Chronic Mental Status Patient Orientation: Person, Time, Situation Transfers Functional [place] Measure 0=Not Assessed/NA 4=Minimal Assistance 1=Total Assistance 5=Supervision or Setup 2=Maximal Assistance 6=Modified [place] 3=Moderate Assistance 7=Complete IndependenceIRFPAI Quality Coding Scale 6 Independent with activity with or without an assistive device 5 Patient requires set up or clean up by helper. Patient completes activity by themselves 4 Supervision or touching assist (CGA). [place] provide cues , steadying assist 3 The helper provides less than half the effort to complete the activity 2 The helper provides more than half the effort to complete the activity 1 Dependent. The helper does all the effort to complete an activity 7 Patient refused to complete or attempt activity 9 The patient did not perform the activity before the current illness or injury 88 Not attempted due to Medical conditions or safety concerns Transfers (B, C, W/C) (FIM): 2 Scootin Rollin Supine to/from Sit: 2 Sit to/from Stand: 3 Bed to/from Chair: 2 Patient performed sit to stand x 3 sets to FWW moderate assist x 2 for safety due to weakness Weight Bearing Right Lower Extremity: Right Full Weight Bearing Left Lower Extremity: Left Full Weight Bearing Gait Training Gait (FIM): 1 Distance (FIM): 1=up to 49 ft Distance: 8' Gait Level of Assist: 2 Gait Persons Needed: 2 Gait Assistive Device: FWW max assist x 2 for safety due to weakness/ambulated x 8' with FWW (noted ataxia/ diminished coordination due to weakness) Exercises Seated Therapy Exercises: Ankle pumps, Long arc quads, Hip flexion Seated Reps: 15 (3 sets) Assessment Patient much more alert and able to follow direction. PT to increase activity as tolerated by patient. PT Short Term Goals Short Term Goals Time Frame: Jul 02, 2018 Transfers (B,C,W/C) (FIM): 2 PT Anesthesia Technician Goals Anesthesia Technician Goals PT Intermediate Goals Time Frame: Aug 06, 2018 Transfers (B,C,W/C) (FIM): 4 Gait (FIM): 2 Gait distance (FIM): 9=854-91 ft Distance: 75' Gait Level of Assist: 4 Gait Assistive Device: FWW PT Plan Treatment/Plan Treatment Plan: Continue Plan of Care Treatment Plan: Bed Mobility, Education, Functional Activity [place], Functional Strength, Gait, Safety, Therapeutic Exercise, Transfers Treatment Duration: Aug 06, 2018 Frequency: 6 times per week (increase as patient improves) Estimated Hrs Per Day: .5 hour per day Patient and/or Family Agrees t: Yes Time/GCodes Time In: 1043 Time Out: 1106 Total Billed Treatment Time: 23 Total Billed Treatment 1 visit FA 14 min EX 9 min FIDEL JARQUIN PT Jul 04, 2018 11:28
[2018-07-04] MEDS: ENOXAPARIN 40 MG/0.4 ML (LOVENOX) SYR SQ SCH (13:45)
[2018-07-04] MEDS: DICYCLOMINE 10 MG (BENTYL) CAP PO PRN (13:52)
[2018-07-04] MEDS ORDERED: HALO0.5T PO (14:24)
--- NOTE | 2018-07-04 14:27 | Discharge Summary ---
Diagnosis/Chief Complaint Date of Admission Jun 12, 2018 at 7:02 pm Date of Discharge 07/04/2018 Admission Diagnosis Admission Diagnosis Acute Respiratory Failure Severe Sepsis Pneumonia UTI Rheumatoid Arthritis Altered mental status HTN Hemoptysis Discharge Diagnosis See Above Chief Complaint/HPI Chief Complaint/HPI Patient presented yesterday via EMS with complaint of increased weakness, she has had at least 2 falls in the last 2 days. Her family reports that she has gotten progressively more ill over the last few days. Short of breath - when EMS picked her up, patient had sats in the 80's, was placed on nasal canula with improvement in oxygenation to the 90's. Required multiple breathing treatments in ED. Head CT negative for acute process. CXR shows bilateral infiltrates in upper lobes as well as left lower lobe infiltrate. Review of clinic chart shows that patient has been seen multiple times for coughing and weakness over the last 2-3 months. Patient also hypotensive in the ED, responded to fluid bolus. Admitted to ICU with severe sepsis. Overnight called by ICU nurse, patient coughing up bloody sputum. Given that she has RA and is on Xeljanz, it is not unreasonable to verify that she does not have TB. Will check Quanterferon Gold and place in isolation in negative pressure room until ruled out. When seen at the time of exam, patient appears quite distressed, and has significantly increased work of breathing. She reports that she has been sick for at least the last 2 months, but that she got significantly worse 2-3 days ago, and is continuing to feel worse. She is tachypneic and tachycardic with accessory muscle use. Pt has an allergy to IV contrast listed; when asked about this, she reports that she can have contrast as long as she gets Benadryl at the same time. She is agreeable to being placed on Bi-pap to see if that helps improve her respiratory status, and a consult has been placed to Dr. Bautista for assistance with pulmonary management. Discharge Summary-Simple/Stand Procedures - Intubation - Bronchoscopy Consultations Dr. Bautista Discharge Physical Examination Allergies: Coded Allergies: Iodinated Contrast- Oral and IV Dye (Verified Allergy, Intermediate, ) doxycycline (Unverified Allergy, Intermediate, FACIAL SWELLING, 03/29/17) fluticasone furoate (Verified Allergy, Intermediate, N/V, 03/29/17) paroxetine (Verified Allergy, Intermediate, 03/29/17) vilanterol (Verified Allergy, Intermediate, N/V, 03/29/17) codeine (Verified Allergy, Unknown, HIVES, Has received morphine in the past w/o issue, 06/20/18) hydrocodone (Unverified Adverse Reaction, Intermediate, DYSPNEA, HIVES, ) oxybutynin (Verified Adverse Reaction, Mild, sores in mouth, 03/29/17) Uncoded Allergies: PAPER TAPE (Allergy, Unknown, BLISTERS/SORES, 07/10/15) Vitals & I&Os Vital Sign - Last 12Hours Date Time Temp Pulse Resp B/P (MAP) Pulse Ox O2 Delivery O2 Flow Rate FiO2 07/04/18 08:00 97.6 98 20 144/66 (92) 95 Room Air 07/03/18 08:00 2.00 06/29/18 10:00 28 Intake and Output 07/04/18 00:00 Intake Total 2050 ml Output Total 200 ml Balance 1850 ml General Appearance: Alert, Oriented X3, No Acute Distress HEENT: Mucous Memb Moist/[place] Respiratory: Clear to Auscultation Cardiovascular: Regular Rate, No Murmurs Abdominal: Normal Bowel Sounds, Soft, No Tenderness Extremities: No Tenderness/Swelling Neuro: Normal Speech, Other (Requiring help with ambulation) Psych/Mental Status: Mental Status NL Hospital Course See final discharge diagnosis. Pending Labs - Patient needs 4-6 week followup CXR with Dr Bautista Radiology Reviewed Date of Exam: 06/12/18 CT HEAD WO-R/O STROKE EXAM: CT HEAD WO-R/O STROKE INDICATION: Leg weakness. Altered mental status. Slurred speech. COMPARISON: CT head without contrast from 08/24/2017. FINDINGS: No intracranial hemorrhage, mass effect, hydrocephalus, or extra-axial fluid collections. No CT evidence of acute infarction. Osseous structures are intact. The visualized paranasal sinuses and mastoids are unremarkable. IMPRESSION: No acute intracranial CT findings. Date of Exam: 06/12/18 CHEST 1 VIEW, AP/PA ONLY INDICATION: Wheezing. EXAMINATION: Portable erect AP chest at 4:42 p.m. FINDINGS: The heart is enlarged and has increased in size since the prior exam of 04/17/2018. Furthermore, in the interval since the prior study, alveolar/interstitial pulmonary infiltrates have developed in the right suprahilar region, the left upper lung and the left midlung. These findings could be secondary to pulmonary edema, pneumonia/atelectasis or a combination of all three. The periphery of the right lung is generally clear and there is no significant pleural effusion in either lung base. The mediastinum is not widened. The osseous structures are intact. There is a loop recorder device again noted overlying the left thorax. IMPRESSION: The appearance of the chest has worsened since the prior study as the heart has increased in size and alveolar/interstitial pulmonary infiltrates have developed, bilaterally, particularly on the left. These abnormal parenchymal densities may be related to pulmonary edema, pneumonia, atelectasis or a combination of all three. A followup exam would be recommended for continued evaluation. Date of Exam: 06/13/18 CHEST 1 VIEW, AP/PA ONLY INDICATION: Followup of infiltrates with shortness of breath. FINDINGS: Bilateral dense infiltrates noted in the upper lobes bilaterally. Moderate perihilar infiltrate noted in the left lower lobe as well. Right lower lung appears clear. The heart is mildly enlarged and has increased in size since 04/17/2018. No evidence of pleural effusion. No pneumothorax. IMPRESSION: 1. Increasing cardiac size. 2. Bilateral infiltrates present increasing in density since previous exam. These could represent inflammatory infiltrates or increasing pulmonary edema. Discussion & Recommendations 63 yo F with known RA that presented with PNA, Severe Sepsis and required intubation. Patient was also found to have Hemoptysis which was concerning for TB given current treatment for RA. Quantiferon gold neg. Patient was treated in the ICU with broad spectrum antibiotics and was eventually weaned off the vent. Patient continued to have episodes of altered mental status and severe pain crisis last week. Patient requires further assistance prior to discharge home due to living on her own after such a long illness and hospitalization. Patient was then accepted to SNF at [facility]. Patient will have f/u with Dr Bautista and [facility] Discharge Condition at discharge Guarded Instructions to patient/family Please see electronic discharge instructions given to patient. Discharge Medications Reviewed and agree with Discharge Medication list on patient's Discharge Instruction sheet Clinical Quality Measures DVT/VTE Risk/Contraindication: VTE Present on Admission: No Risk Factor Score Per Nursin RFS Level Per Nursing on Admit: 4+=Very High Contraindications-Pharm: Other *list below* Other: Lovenox Pneumonia: Pseudomonal Risk: COPD Copy Copies To 1: LYNDSAY RASHEED MD, HOLLY R MD Jul 04, 2018 14:27
== END 2018-07-04 15:45 | DRG 853 ==
LOC: EDUNIT# 15:34 → ER 15:35 → ICU 19:02 → 4TH 06-25 14:28
PROVIDERS: ADMIT Family Medicine; ATTEND Family Medicine
PROC: 5A1955Z Respiratory Ventilation, Greater than 96 Consecutive Hours (ICD-10-PCS; principal; 2018-06-13)
PROC: 0B9F8ZX Drainage of Right Lower Lung Lobe, Via Natural or Artificial Opening Endoscopic, Diagnostic (ICD-10-PCS; 2018-06-15)
PROC: 0B9G8ZX Drainage of Left Upper Lung Lobe, Via Natural or Artificial Opening Endoscopic, Diagnostic (ICD-10-PCS; 2018-06-15)
PROC: 0BCG8ZZ Extirpation of Matter from Left Upper Lung Lobe, Via Natural or Artificial Opening Endoscopic (ICD-10-PCS; 2018-06-20)
DX: A41.9 Sepsis, unspecified organism (principal); R65.20 Severe sepsis without septic shock; J18.9 Pneumonia, unspecified organism; N17.9 Acute kidney failure, unspecified; E87.1 Hypo-osmolality and hyponatremia; R04.2 Hemoptysis; I69.359 Hemiplegia and hemiparesis following cerebral infarction affecting unspecified side; J44.0 Chronic obstructive pulmonary disease with (acute) lower respiratory infection; J44.1 Chronic obstructive pulmonary disease with (acute) exacerbation; N39.0 Urinary tract infection, site not specified; G93.41 Metabolic encephalopathy; G92 Toxic encephalopathy; J80 Acute respiratory distress syndrome; M06.9 Rheumatoid arthritis, unspecified; D64.9 Anemia, unspecified; T42.75XA Adverse effect of unspecified antiepileptic and sedative-hypnotic drugs, initial encounter; G47.33 Obstructive sleep apnea (adult) (pediatric); E66.9 Obesity, unspecified; I25.10 Atherosclerotic heart disease of native coronary artery without angina pectoris; F17.200 Nicotine dependence, unspecified, uncomplicated; G62.9 Polyneuropathy, unspecified; F40.00 Agoraphobia, unspecified; F32.9 Major depressive disorder, single episode, unspecified; I10 Essential (primary) hypertension; E78.00 Pure hypercholesterolemia, unspecified; K21.9 Gastro-esophageal reflux disease without esophagitis; K76.0 Fatty (change of) liver, not elsewhere classified; R73.03 Prediabetes; Z68.36 Body mass index [BMI] 36.0-36.9, adult
CPT/HCPCS: 36415; 36569; 36600; 70450; 70496; 70498; 71045; 71250; 71275; 76937; 80048; 80053; 80061; 80306; 81000; 82140; 82805; 82962; 83036; 83605; 83735; 83880; 84100; 84439; 84443; 84478; 84481; 84484; 85007; 85025; 85027; 85379; 85610; 85730; 86021; 86038; 86039; 86141; 86225; 86235; 86256; 86480; 86703; 87040; 87070; 87077; 87081; 87088; 87101; 87106; 87116; 87186; 87205; 93005; 93041; 93306; 93970; 94002; 94003; 94640; 94660; 94664; 94760; 94799; 96361; 96365; 96375

== ENCOUNTER → 2018-11-16 | Outpatient (CLI) | payer MEDICARE ==
[~2018-11-16] VITALS: Ht 167.6 cm; Wt 95.3 kg
[~2018-11-16] MED LIST changes: +ACET-77 PO; +ALPR0.5T7 PO; +AMLO10TA7 NG; -AMLO5TAB7 PO; +AMLO5TAB9 PO; +CATHETER FLUSH 10 ML SYR IV PRN; +DICY20TA10 PO; +ENOX40DI8 SQ; +FLUT9.9S NS; -GABA600T2 PO; +GUAI400T44 PO; +HALO0.5T PO; +LEVO5TAB12 PO; +MAGN400T6 PO; +MONT10TA24 PO; +ONDN4T PO; +PANT40TA3 PO; +POLY17PO31 PO; +POTA10CA43 PO; +POTA20PA28 PO; +REGADENOSON 0.4 MG/5 ML SYR (LEXISCAN) IV ONE; +RT-ALBUINH IH; +SIMV40TA4 PO; -SUCCINYLCHOLINE INJ 100 MG/5 ML SYR INJ ONE; +ZOLP5TAB PO
[2018-11-16 13:32] VITALS: BP 160/104
--- NOTE | 2018-11-17 00:46 | STRESS TEST ---
DATE OF SERVICE: 11/16/2018 LEXISCAN MYOVIEW STRESS TEST REPORT REFERRING PHYSICIAN: Dr. Lori Willis. Baseline heart rate is 87. Baseline blood pressure is 174/110. Baseline EKG is sinus rhythm with no ischemic changes. In summary, the patient was injected with 10.36 mCi of technetium-99 Myoview and the resting images were obtained. Then, the patient received 0.4 mg of Lexiscan followed by 29.7 mCi of technetium-99 Myoview. Throughout the test, there were no EKG changes. The resting and stress images were reviewed and compared in the short axis, horizontal long axis, and vertical long axis views. Review of the images showed good radiotracer uptake with no significant ischemia or infarction. SSS is 1, SDS 1, TID value 1.09. On the gated images, the left ventricle appeared to be normal size with normal contractility. Calculated ejection fraction is 63%. CONCLUSION: 1. The patient tolerated Lexiscan well. 2. No ischemia or infarction on SPECT images. 3. Normal left ventricular size with normal contractility. Calculated ejection fraction is 63%. Job ID: [id number] DocumentID: [id number] Dictated Date: 11/16/2018 17:32:39 Lifter Date: 11/17/2018 00:45:55 Dictated By: NADIYA SCOTT MD
== END ==
LOC: CARD 11:42
PROVIDERS: ATTEND Physician Assistant
DX: I25.10 Atherosclerotic heart disease of native coronary artery without angina pectoris (principal); I10 Essential (primary) hypertension; I63.9 Cerebral infarction, unspecified; I48.0 Paroxysmal atrial fibrillation; M06.9 Rheumatoid arthritis, unspecified
CPT/HCPCS: 78452; 93017

== ENCOUNTER 2019-05-18 14:00 | Outpatient (CLI) | payer MEDICARE ==
[~2019-05-18] VITALS: Ht 167.6 cm; Wt 99.8 kg
[~2019-05-18 14:00] MED LIST changes: -CATHETER FLUSH 10 ML SYR IV PRN; -REGADENOSON 0.4 MG/5 ML SYR (LEXISCAN) IV ONE; -ROSU10TA PO; +ROSU10TA22 PO
[2019-05-18] MEDS ORDERED: MELO15TA39 PO (14:05)
[2019-05-18] MEDS ORDERED: APIX5TAB PO (14:05)
[2019-05-18] MEDS ORDERED: POTA-51 PO (14:05)
[2019-05-18] MEDS ORDERED: DOXE25CA46 PO (14:05)
[2019-05-18] MEDS ORDERED: TOFA11TA PO (14:05)
== END 2019-05-18 15:06 | disposition home or self-care (01) ==
LOC: PREOP 14:00
PROVIDERS: ATTEND Surgery
DX: Z01.818 Encounter for other preprocedural examination (principal)

== ENCOUNTER 2019-05-22 07:11 | Day surgery (SDC) | payer MEDICARE ==
[2019-05-22] VITALS (7 sets, daily range): BP systolic 88–169; BP diastolic 52–81
[~2019-05-22] VITALS: Ht 167.6 cm; Wt 99.8 kg
[~2019-05-22 07:11] MED LIST changes: +APIX5TAB PO; +DOXE25CA46 PO; +MELO15TA39 PO; +POTA-51 PO; +TOFA11TA PO
[2019-05-22] MEDS ORDERED: LACTATED RINGERS 1,000 ML IV ONE (07:15)
--- OUTSIDE RECORDS SUMMARY | 2019-05-22 07:22 | XMS REPORT ---
Author Author CORTEZ CARREON Organization [facility] Address [address] [place] [address] Care Team Providers Care Supervisor Cloth Winding Name Role Phone CORTEZ CARREON Unavailable PROBLEMS Type Condition ICD9-CM Code POX89-FF Code Onset Dates Condition Status SNOMED Code Problem Asthma J45.909 Active 261542831 Problem Rheumatoid arthritis M06.9 Active 34779715 Problem Chronic pain syndrome G89.4 Active 396805302 Problem Hypertension I10 Active 93639203 Problem Mixed hyperlipidemia E78.2 Active 098603545 Problem Arteriosclerotic coronary artery disease I25.10 Active 93006226 Problem Other insomnia G47.09 Active 062812085 Problem Hemiparesis of left nondominant side as late effect of cerebral infarction I69.354 Active 315957119 Problem Neuropathy G62.9 Active 166310869 Problem Gastroesophageal reflux disease with esophagitis K21.0 Active 691518359 Problem Irritable bowel syndrome with diarrhea K58.0 Active 868342940 Problem Panic attacks F41.0 Active 420687989 Problem Hemiplegia affecting left nondominant side G81.94 Active Problem Dysthymic disorder F34.1 Active 06675589 Problem Generalized anxiety disorder F41.1 Active 33712464 Problem Rheumatoid arthritis with rheumatoid factor of multiple sites without organ or systems involvement M05.79 Active 30841278 Problem Obstructive sleep apnea G47.33 Active 37470284 Problem Morbid (severe) obesity due to excess calories E66.01 Active 397040161 Problem ADHD (attention deficit hyperactivity disorder), combined type F90.2 Active 39910619 Problem Mild episode of recurrent major depressive disorder F33.0 Active 567968560 Problem Seasonal allergies J30.2 Active 064307044 Problem Paroxysmal atrial fibrillation I48.0 Active 110326112 Problem Chronic obstructive pulmonary disease J44.9 Active 02586381 ALLERGIES No Information ENCOUNTERS Encounter Location Date Diagnosis [facility] [address] [address] May, [id number] [id number] May, [facility] [id number] [place] [address] Apr, [address] [place] [id number] Apr, Hypertension I10 ; Mixed hyperlipidemia E78.2 ; Arteriosclerotic coronary artery disease I25.10 ; History of atrial fibrillation Z86.79 ; Prediabetes R73.03 ; Asthma J45.909 ; Rheumatoid arthritis M06.9 ; Obstructive sleep apnea G47.33 ; Other insomnia G47.09 ; Dysthymic disorder F34.1 ; Generalized anxiety disorder F41.1 ; Chronic pain syndrome G89.4 ; Neuropathy G62.9 ; Irritable bowel syndrome with diarrhea K58.0 ; Seasonal allergies J30.2 ; Hemiparesis of left nondominant side as late effect of cerebral infarction I69.354 and Elevated blood sugar R73.09 [address] [place] [id number] Apr, Elevated blood sugar R73.09 [id number] [place] [id number] Apr, Thyroid disorder screening Z13.29 ; Lipid screening Z13.220 ; Urinary tract infection, site not specified N39.0 and Rheumatoid arthritis with rheumatoid factor of multiple sites without organ or systems involvement M05.79 [address] [place] [id number] Apr, Urinary tract infection, site not specified N39.0 ; Hematuria, unspecified R31.9 ; Right lower quadrant abdominal pain R10.31 ; Lipid screening Z13.220 ; Thyroid disorder screening Z13.29 and Irritable bowel syndrome with diarrhea K58.0 [facility] [address] [address] Mar, [facility] [address] [address] Mar, [id number] [id number] 14 Mar, 2019 [place] [id number] [place] [address] Mar, [place] [id number] [place] [address] February, Generalized anxiety disorder F41.1 and Mild episode of recurrent major depressive disorder F33.0 [place] [id number] [place] [address] Jan, [facility] [id number] [place] [id number] Jan, Herpes zoster without complication B02.9 [place] [id number] [place] [address] Jan, Other insomnia G47.09 ; Hypertension I10 ; Rheumatoid arthritis M06.9 ; Mild episode of recurrent major depressive disorder F33.0 ; Breast cancer screening Z12.39 ; Arteriosclerotic coronary artery disease I25.10 ; Morbid (severe) obesity due to excess calories E66.01 and Hemiparesis of left nondominant side as late effect of cerebral infarction I69.354 [place] [id number] [place] [address] Jan, Asthma J45.909 and Other insomnia G47.09 [place] [id number] [place] [address] Jan, [place] [id number] [place] [address] Dec, Generalized anxiety disorder F41.1 and Mild episode of recurrent major depressive disorder F33.0 [place] [id number] [place] [address] Dec, [place] [id number] [place] [address] Dec, [place] [id number] [place] [address] Dec, [facility] [address] [id number] [id number] Nov, Viral upper respiratory tract infection J06.9 [facility] [address] [address] Nov, [facility] [address] [place] [address] Oct, [facility] [address] [place] [address] Sep, [facility] [id number] [place] [address] Sep, [facility] [id number] [place] [address] Sep, [facility] [id number] [place] [address] Sep, Orthostatic hypotension I95.1 ; Shortness of breath R06.02 ; Right foot pain M79.671 and Morbid (severe) obesity due to excess calories E66.01 [facility] [id number] [place] [address] Aug, [facility] [address] [place] [address] Aug, [facility] [address] [place] [address] Aug, [facility] [address] [address] Aug, [facility] [id number] [place] [address] Aug, [facility] [address], [place] [address] Jul, [facility] [id number] [place] [address] Jul, [facility] [address] [address] Jul, [facility] [address], [place] [address] Jul, [facility] [address], [place] [address] Jul, [facility] [address] [place] [address] Jul, [employer] [address] [place] [id number] Jul, Hemiplegia affecting left nondominant side G81.94 ; Chronic obstructive pulmonary disease J44.9 and Weakness R53.1 [facility] [address] [address] Jul, [employer] [address] [place] [id number] Jul, Weakness R53.1 ; Paroxysmal atrial fibrillation I48.0 and Unsteady gait R26.81 [facility] [address], [place] [address] Jul, Tobacco abuse Z72.0 [employer] [address] [place] [id number] Jun, History of acute respiratory failure Z87.09 ; Weight gain R63.5 and Tobacco abuse Z72.0 [facility] [address], [place] [address] Jun, [facility] [address], [place] [address] May, Primary insomnia F51.01 [facility] [address], [place] [address] May, Mild episode of recurrent major depressive disorder F33.0 [facility] [address], [place] [address] May, [facility] [id number] [place] [address] 15 May, 2018 Chronic obstructive pulmonary disease, unspecified COPD type J44.9 ; Primary insomnia F51.01 ; Fatigue, unspecified type R53.83 and Weight gain R63.5 [place] [id number] [place] [address] May, Thrush B37.0 [facility] [address] [address] May, Mild episode of recurrent major depressive disorder F33.0 and Generalized anxiety disorder F41.1 [place] [address] [address] May, Thrush B37.0 [place] [id number] [place] [address] Apr, Cough R05 [place] [id number] [place] [address] Mar, Mild episode of recurrent major depressive disorder F33.0 [place] [id number] [place] [address] Mar, Mild episode of recurrent major depressive disorder F33.0 and Generalized anxiety disorder F41.1 [place] [id number] [place] [address] Mar, Seasonal allergies J30.2 [facility] [id number] [place] [address] Mar, Seasonal allergies J30.2 [facility] [id number] [place] [address] February, Generalized anxiety disorder F41.1 [facility] [address] [place] [address] February, Cough R05 and Seasonal allergies J30.2 [facility] [id number] [place] [address] February, Generalized anxiety disorder F41.1 and Mild episode of recurrent major depressive disorder F33.0 [facility] [id number] [place] [address] February, 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 accountant (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 ; Anxiety F41.9 ; Panic attacks F41.0 and Irritable bowel syndrome with diarrhea K58.0 [facility] [address] [address] February, [facility] [id number] [place] [address] Jan, Mixed hyperlipidemia E78.2 [facility] [address] [address] Jan, [facility] [id number] [place] [address] Jan, [facility] [id number] [place] [address] Jan, [facility] [id number] [place] [address] Jan, [facility] [id number] [place] [address] Dec, [facility] [id number] [place] [address] Dec, [facility] [id number] [place] [address] Dec, [facility] [id number] [place] [address] Nov, Dysthymic disorder F34.1 [facility] [id number] [place] [address] Oct, [facility] [id number] [place] [address] Oct, [place] [id number] [place] [address] Oct, [place] [address] [address] Oct, Diarrhea, unspecified type R19.7 and Dysuria R30.0 [place] [address] [address] Oct, [place] [address] [address] Sep, [place] [id number] [place] [address] Sep, [place] [address] [address] Sep, Anxiety F41.[address] [address] Sep, Cerebrovascular accident (CVA), unspecified mechanism I63.9 ; Mixed hyperlipidemia E78.2 ; Gastroesophageal reflux disease with esophagitis K21.0 and Anxiety F41.9 [id number] [place] [address] Sep, [place] [id number] [place] [address] Aug, Chronic obstructive pulmonary disease, unspecified J44.9 ; Asthma J45.909 ; Nausea R11.0 ; Dysthymic disorder F34.1 ; Cerebrovascular accident (CVA), unspecified mechanism I63.9 and Rheumatoid arthritis M06.9 [place] [id number] [place] [address] Aug, Nausea R11.0 ; Encounter for immunization Z23 ; Sleep apnea in adult G47.30 ; Rheumatoid arthritis involving multiple sites, unspecified rheumatoid factor presence M06.9 ; Generalized anxiety disorder F41.1 ; Dysthymic disorder F34.1 and Asthma J45.[address] [place] [address] Jul, [place] [id number] [place] [address] May, ADHD (attention deficit hyperactivity disorder), combined type F90.2 ; Generalized anxiety disorder F41.1 and Persistent depressive disorder F34.1 [place] [id number] [place] [address] May, Cerebrovascular accident (CVA), unspecified mechanism I63.9 [place] [address] [address] Apr, Mixed hyperlipidemia E78.2 and Cerebrovascular accident (CVA), unspecified mechanism I63.9 [place] [id number] [place] [address] Apr, Generalized anxiety disorder F41.1 [place] [address] [address] Apr, Bronchitis J40 and Tobacco use Z72.0 [place] [id number] [place] [address] Apr, Mixed hyperlipidemia E78.2 [place] [id number] [place] [address] Apr, 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 accountant (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 [place] [id number] [place] [address] Apr, [place] [id number] [place] [address] Apr, Generalized anxiety disorder F41.1 [place] [id number] [place] [address] Apr, Obstructive sleep apnea G47.33 and Hyperinsulinemia E16.1 [place] [id number] [place] [address] Apr, ADHD (attention deficit hyperactivity disorder), combined type F90.2 ; Generalized anxiety disorder F41.1 and Persistent depressive disorder F34.1 [facility] [id number] [place] [address] Mar, [facility] [id number] [place] [address] Mar, Generalized anxiety disorder F41.1 [facility] [id number] [place] [address] Mar, Tarsal tunnel syndrome of both lower extremities G57.53 [facility] [id number] [place] [address] February, [facility] [id number] [place] [address] February, [facility] [id number] [place] [address] February, Asthma J45.909 [facility] [id number] [place] [address] February, Generalized anxiety disorder F41.1 [facility] [id number] [place] [address] February, Hypoxemia R09.02 ; Hyperglycemia R73.9 ; Rheumatoid arthritis M06.9 and Generalized anxiety disorder F41.1 [facility] [id number] [place] [address] February, [facility] [id number] [place] [address] Jan, Chronic obstructive pulmonary disease, unspecified J44.9 [facility] [id number] [place] [address] Jan, Chronic pain syndrome G89.4 [facility] [id number] [place] [address] Jan, Hypoxemia R09.02 [facility] [address] [place] [address] Jan, [facility] [id number] [place] [address] Jan, Chronic obstructive pulmonary disease, unspecified J44.9 ; Hypoxemia R09.02 ; Other insomnia G47.09 and Left anterior shoulder pain M25.512 [facility] [address] [address] Jan, Numbness in feet R20.0 and Neuropathy G62.9 [facility] [id number] [place] [address] Jan, [facility] [address] [address] Dec, Acute pain of left shoulder M25.512 [facility] [id number] [place] [address] Dec, Acute pain of left shoulder M25.512 [facility] [id number] [place] [address] Dec, Generalized anxiety disorder F41.1 [facility] [id number] [place] [address] Dec, Generalized anxiety disorder F41.1 [facility] [id number] [place] [address] Nov, ADHD (attention deficit hyperactivity disorder), combined type F90.2 ; Generalized anxiety disorder F41.1 and Persistent depressive disorder F34.1 [facility] [id number] [place] [address] Nov, Acute pain of left shoulder M25.512 [facility] [id number] [place] [address] Nov, ADHD (attention deficit hyperactivity disorder), combined type F90.2 ; Generalized anxiety disorder F41.1 and Persistent depressive disorder F34.1 [facility] [address] [place] [address] 17 Nov, 2016 Chronic pain syndrome G89.4 [facility] [id number] [place] [address] Nov, Chronic pain syndrome G89.4 [facility] [id number] [place] [address] Nov, Acute pain of left shoulder M25.512 [place] [id number] [place] [address] Nov, Generalized anxiety disorder F41.1 [place] [id number] [place] [address] Nov, Acute pain of left shoulder M25.512 [place] [id number] [place] [address] Nov, ADHD (attention deficit hyperactivity disorder), combined type F90.2 ; Generalized anxiety disorder F41.1 and Persistent depressive disorder F34.1 [place] [address] [place] [address] Nov, Acute pain of left shoulder M25.512 ; Generalized anxiety disorder F41.1 ; Chronic pain syndrome G89.4 ; Hyperinsulinemia E16.1 ; Pain of left foot M79.672 and Pain in right foot M79.671 [place] [address] [place] [address] Oct, ADHD (attention deficit hyperactivity disorder), combined type F90.2 ; Generalized anxiety disorder F41.1 and Dysthymic disorder F34.1 [place] [id number] [place] [address] Sep, [place] [id number] [place] [address] Sep, [place] [id number] [place] [address] Sep, Routine gynecological examination V72.31 ; Cervical cancer screening Z12.4 ; Breast cancer screening Z12.39 ; Colon cancer screening Z12.11 ; Hypokalemia E87.6 ; Herpes simplex type 1 infection B00.9 and Abscess of right axilla L02.411 [address] [id number] [place] [address] Sep, [place] [address] [address] Sep, ADHD (attention deficit hyperactivity disorder), combined type F90.2 ; Generalized anxiety disorder F41.1 and Dysthymic disorder F34.1 [place] [address] [address] Aug, [place] [address] [address] Aug, [place] [address] [address] Aug, Generalized anxiety disorder F41.1 [place] [address] [address] Aug, ADHD (attention deficit hyperactivity disorder), combined type F90.2 ; Generalized anxiety disorder F41.1 and Dysthymic disorder F34.1 [place] [id number] [place] [address] Jul, Chronic pain syndrome G89.4 ; Hypertension I10 ; Hypokalemia E87.6 ; Asthma J45.909 and Nausea R11.0 [place] [id number] [place] [address] Jul, [place] [address] [address] Jul, Asthma J45.909 [place] [id number] [place] [address] Jul, ADHD (attention deficit hyperactivity disorder), combined type F90.2 ; Generalized anxiety disorder F41.1 and Dysthymic disorder F34.1 [place] [address] [address] Jul, [place] [address] [address] Jul, Hypertension I10 ; Arteriosclerotic coronary artery disease I25.10 ; Mixed hyperlipidemia E78.2 ; Other assisted (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 and Hyperglycemia R73.9 [place] [address] [address] 16 Jun, 2016 Hypokalemia E87.6 and Hyperglycemia R73.9 [place] [address] [address] Jun, [place] [address] [address] Jun, Abnormal kidney function N28.9 [place] [address] [address] Jun, [place] [address] [address] Jun, ADHD (attention deficit hyperactivity disorder), combined type F90.2 ; Generalized anxiety disorder F41.1 and Dysthymic disorder F34.1 [place] [address] [address] Jun, Generalized anxiety disorder F41.1 and Dysthymic disorder F34.1 [place] [id number] [place] [address] Jun, Hypokalemia E87.6 [place] [address] [address] May, Hypokalemia E87.6 ; Vertigo R42 and Hyperinsulinemia E16.1 [place] [address] [address] May, [place] [id number] [place] [address] May, Abnormal kidney function N28.9 ; Hyperinsulinemia E16.1 and Nausea R11.0 [place] [address] [address] May, Hypokalemia E87.6 ; Nausea R11.0 ; Epigastric pain R10.13 ; Dehydration E86.0 ; Diaphoresis R61 and Right arm pain M79.601 [place] [address] [address] May, [place] [address] [address] May, Hypokalemia E87.6 [place] [address] [address] May, Hypokalemia E87.6 [place] [address] [address] Apr, [place] [address] [address] Apr, ADHD (attention deficit hyperactivity disorder), combined type F90.2 ; Generalized anxiety disorder F41.1 and Dysthymic disorder F34.1 [place] [address] [address] Apr, Right arm pain M79.601 and Hyperinsulinemia E16.1 [place] [address] [place] [id number] [place] [address] Mar, [place] [address] [address] Mar, [place] [address] [address] Mar, Hyperinsulinemia E16.1 ; Hyperlipidemia, unspecified hyperlipidemia type E78.5 ; Central venous catheter in place Z78.9 ; Generalized anxiety disorder F41.1 and Urinary tract infection, site not specified N39.0 [place] [address] [place] [id number] [place] [address] Mar, ADHD (attention deficit hyperactivity disorder), combined type F90.2 ; Generalized anxiety disorder F41.1 and Dysthymic disorder F34.1 [place] [address] [address] February, ADHD (attention deficit hyperactivity disorder), combined type F90.2 ; Generalized anxiety disorder F41.1 and Dysthymic disorder F34.1 [place] [address] [address] February, [place] [address] [address] February, [place] [address] [address] February, Hypertension I10 and Weight gain R63.5 [place] [address] [place] [id number] [place] [address] February, Major depressive disorder, recurrent, moderate F33.1 and Generalized anxiety disorder F41.1 [place] [address] [place] [id number] [place] [address] February, ADHD (attention deficit hyperactivity disorder), combined type F90.2 ; Generalized anxiety disorder F41.1 and Dysthymic disorder F34.1 [place] [address] [place] [id number] [place] [address] February, [place] [address] [place] [id number] [place] [address] February, Asthma J45.909 ; Weight gain R63.5 ; Hypertension I10 ; Rheumatoid arthritis M06.9 and Chronic pain syndrome G89.4 [place] [address] [place] [id number] [place] [address] Jan, ADHD (attention deficit hyperactivity disorder), combined type F90.2 ; Generalized anxiety disorder F41.1 and Dysthymic disorder F34.1 [facility] [id number] [place] [address] Dec, ADHD (attention deficit hyperactivity disorder), combined type F90.2 ; Generalized anxiety disorder F41.1 and Dysthymic disorder F34.1 [facility] [id number] [place] [address] Dec, [facility] [id number] [place] [address] Nov, [facility] [address] [place] [id number] [place] [address], [place] [address] Nov, [facility] [address] [place] [id number] [place] [address] Nov, [facility] [address] [place] [id number] [place] [address] Nov, [facility] [address] [address] Oct, [facility] [address] [place] [id number] [place] [address] Oct, [facility] [address], [place] [address] Oct, [facility] [address], [place] [address] Sep, [facility] [address], [place] [address] Sep, [facility] [address] [place] [id number] [place] [address] Sep, Agoraphobia with panic disorder F40.01 ; Attention-deficit hyperactivity disorder, combined type F90.2 and Dysthymic disorder F34.1 [facility] [address], [place] [address] Aug, [facility] [address] [address] Aug, [facility] [id number] [place] [address] Aug, [facility] [address], [place] [address] Aug, Dysthymic disorder F34.1 ; Generalized anxiety disorder F41.1 and ADHD (attention deficit hyperactivity disorder), combined type F90.2 [facility] [address], [place] [address] Aug, ADHD (attention deficit hyperactivity disorder), combined type F90.2 ; Generalized anxiety disorder F41.1 and Dysthymic disorder F34.1 [facility] [address], [place] [address] Jul, Urinary tract infection, site not specified N39.0 ; Hypotension, unspecified I95.9 and Breast cancer screening Z12.39 [facility] [address], [place] [address] Jul, [facility] [address] [place] [address] Jul, [facility] [address], [place] [address] Jul, Urinary tract infection, site not specified N39.0 ; Nausea R11.0 ; Gastroenteritis K52.9 ; Renal failure N19 and Other hypotension I95.89 [facility] [address], [place] [address] Jul, [facility] [address] [place] [address] Jul, [facility] [address], [place] [address] Jul, [facility] [place] [address], [place] [address] Jun, [address] [place] [address] Jun, Major depression in partial remission 296.25 ; Generalized anxiety disorder 300.02 and ADHD, predominantly inattentive type 314.01 [place] [id number] [place] [address] May, [address] [address] Apr, Major depressive disorder, recurrent episode, severe, without mention of psychotic behavior 296.33 ; Agoraphobia with panic disorder 300.21 and Generalized anxiety disorder 300.02 [place] [id number] [place] [address] Apr, ADHD (attention deficit hyperactivity disorder), combined type 314.01 ; Generalized anxiety disorder 300.02 and Dysthymic disorder 300.4 [place] [id number] [place] [address] Apr, CAD (coronary artery disease) 414.00 ; HTN (hypertension) 401.9 and Tobacco use 305.[address] [place] [address] Apr, [address] [place] [address] Mar, ADHD (attention deficit hyperactivity disorder), combined type 314.01 ; Generalized anxiety disorder 300.02 ; Dysthymic disorder 300.4 ; No condition on [place] V71.09 ; Rheumatoid arthritis 714.0 ; Incontinence 788.30 ; Irritable bowel syndrome 564.1 ; Osteoporosis 733.00 and Chronic pain 338.[address] [place] [address] Mar, Agoraphobia with panic disorder 300.21 and Major depressive disorder, recurrent episode, moderate 296.32 [place] [id number] [place] [address] Mar, [facility] [address], [place] [address] February, [facility] [address] [place] [id number] [place] [address] February, Agoraphobia with panic disorder 300.21 and Major depressive disorder, recurrent episode, moderate 296.32 [facility] [address] [place] [id number] [place] [address] February, [facility] [address], [place] [address] Jan, [facility] [address] [place] [id number] [place] [address] Jan, [facility] [address] [place] [address] [id number] [address] Dec, [facility] [address], [place] [address] Dec, [facility] [address], [place] [address] Dec, [facility] [address], [place] [address] Dec, [facility] [address], [place] [address] Dec, [facility] [address], [place] [address] Dec, [facility] [address], [place] [address] Nov, [facility] [address], [place] [address] Nov, [facility] [address], [place] [address] Nov, [facility] [address] [place] [id number] [place] [address] Nov, 2014 [facility] [place] [facility] [address] [id number] [place] [address] Nov, 2014 [facility] [place] [facility] [address] [id number] [place] [address] Nov, 2014 [facility] [place] [facility] [address] [id number] [place] [address] Nov, 2014 [facility] [place] [facility] [address] [id number] [place] [address] Nov, [facility] [place] [facility] [address] [id number] [place] [address] Oct, [facility] [place] [facility] [address] [id number] [place] [address] Oct, [facility] [place] [facility] [address] [id number] [place] [address] Oct, [facility] [place] [facility] [address] [id number] [place] [address] Oct, [facility] [place] [facility] [address] [id number] [place] [address] Oct, [facility] [place] [facility] [address] [facility] [id number] [place] [address] Oct, [facility] [place] [facility] [address] [id number] [place] [address] Sep, [facility] [place] [facility] [address] [id number] [place] [address] Sep, [facility] [place] [facility] [address] [id number] [place] [address] Sep, [facility] [place] [facility] [address] [id number] [place] [address] Sep, [facility] [place] [facility] [address] [id number] [place] [address] Sep, [facility] [place] [facility] [address] [id number] [place] [address] Sep, [facility] [place] [facility] [address] [id number] [place] [address] Sep, [facility] [place] [facility] [address] [id number] [place] [address] Aug, [facility] [place] [facility] [address] [id number] [place] [address] Aug, [facility] [place] [facility] [address] [id number] [place] [address] Aug, [facility] [place] [facility] [address] [id number] [place] [address] Aug, [facility] [place] [facility] [address] [id number] [place] [address] Aug, [facility] [place] [facility] [address] [id number] [place] [address] Aug, [facility] [place] [facility] [address] [id number] [place] [address] Jul, [facility] [place] [facility] [address] [id number], [place] [address] Jul, [facility] [place] [facility] [address] [id number], [place] [address] Jul, [facility] [place] [facility] [address] [id number], [place] [address] Jul, [facility] [place] [facility] [address] [id number] [place] [address] Jul, [facility] [place] [facility] [address] [id number], [place] [address] Jul, [facility] [place] [facility] [address] [id number] [place] [address] Jun, [facility] [place] [facility] [address] [id number] [place] [address] Jun, [facility] [place] [facility] [address] [id number] [place] [address] May, [facility] [place] [facility] [address] [id number] [place] [address] May, [facility] [place] [facility] [address] [id number] [place] [address] Apr, [facility] [place] [facility] [address] [id number] [place] [address] Apr, [facility] [place] [facility] [address] [id number] [place] [address] Apr, [facility] [place] [facility] [address] [id number] [place] [address] Apr, [facility] [place] [facility] [address] [id number] [place] [address] Mar, [facility] [place] [facility] [address] [id number] [place] [address] Mar, [facility] [place] [facility] [address] [id number] [place] [address] Mar, [facility] [place] [facility] [address] [id number] [place] [address] Mar, [facility] [place] [facility] [address] [id number] [place] [address] February, [facility] [place] [facility] [address] [id number] [place] [address] February, [facility] [place] [facility] [address] [id number] [place] [address] February, [facility] [place] [facility] [address] [id number] [place] [address] February, [facility] [place] [facility] [address] [id number] [place] [address] February, [facility] [place] [facility] [address] [id number] [place] [address] February, [facility] [place] [facility] [address] [id number] [place] [address] Jan, [facility] [place] [facility] [address] [id number] [place] [address] Jan, [facility] [place] [facility] [address] [id number] [place] [address] Dec, [facility] [place] [facility] [address] [id number] [place] [address] Dec, [facility] [place] [facility] [address] [id number] [place] [address] Nov, [facility] [place] [facility] [address] [id number] [place] [address] Nov, [facility] [place] [facility] [address] [id number] [place] [address] Oct, [facility] [place] [facility] [address] [id number] [place] [address] Oct, [facility] [place] [facility] [address] [id number] [place] [address] Oct, [facility] [place] [facility] [address] [id number] [place] [address] Oct, [facility] [place] [facility] [address] [id number] [place] [address] Sep, [facility] [place] [facility] [address] [id number] [place] [address] Sep, [facility] [place] [facility] [address] [id number] [place] [address] Sep, [facility] [place] [facility] [address] [id number] [place] [address] Sep, [facility] [place] [facility] [address] [id number] [place] [address] Sep, [facility] [place] [facility] [address] [id number] [place] [address] Sep, [facility] [place] [facility] [address] [id number] [place] [address] Sep, [facility] [place] [facility] [address] [id number] [place] [address] Sep, [facility] [place] [facility] [address] [id number] [place] [address] Aug, [facility] [place] [facility] [address] [id number] [place] [address] Aug, [facility] [place] [facility] [address] [id number] [place] [address] Aug, [facility] [place] [facility] [address] [id number] [place] [address] Aug, [facility] [place] [facility] [address] [id number] [place] [address] Aug, [facility] [place] [facility] [address] [id number] [place] [address] Aug, [facility] [place] [facility] [address] [id number] [place] [address] Aug, [facility] [place] [facility] [address] [id number], [place] [address] Aug, [facility] [place] [facility] [address] [id number], [place] [address] Aug, [facility] [place] [facility] [address] [id number] [place] [address] Jul, [facility] [place] [facility] [address] [id number] [place] [address] Jun, [facility] [place] [facility] [address] [id number] [place] [address] May, [facility] [place] [facility] [address] [id number] [place] [address] May, [facility] [address] [id number] [place] [address] May, [facility] [address] [id number] [place] [address] Apr, [facility] [address] [id number] [place] [address] Mar, [facility] [address] [id number] [place] [address] February, [facility] [address] [id number] [place] [address] Oct, [facility] [address] [id number] [place] [address] Oct, [facility] [address] [id number] [place] [address] Oct, [facility] [address] [id number] [place] [address] Oct, [facility] [address] [id number] [place] [address] Oct, [facility] [address] [id number] [place] [address] Oct, [facility] [address] [id number] [place] [address] Sep, [facility] [address] [id number] [place] [address] Sep, [facility] [address] [id number] [place] [address] Aug, [facility] [address] [id number] [place] [address] Aug, [facility] [address] [id number] [place] [address] Jul, [facility] [place] [facility] [address] [id number] [place] [address] Jul, [facility] [place] [facility] [address] [id number] [place] [address] Jul, [facility] [place] [facility] [address] [id number] [place] [address] Jul, [facility] [place] [facility] [address] [id number] [place] [address] Jul, [facility] [place] [facility] [address] [id number] [place] [address] Jul, [facility] [place] [facility] [address] [id number] [place] [address] Jul, [facility] [place] [facility] [address] [id number] [place] [address] Jul, [facility] [place] [facility] [address] [id number] [place] [address] Jun, [facility] [place] [facility] [address] [id number] [place] [address] Jun, [facility] [place] [facility] [address] [id number], [place] [address] May, [facility] [place] [facility] [address] [id number], [place] [address] Apr, [facility] [place] [facility] [address] [id number], [place] [address] Mar, [facility] [place] [facility] [address] [id number] [place] [address] Mar, [facility] [place] [facility] [address] [id number], [place] [address] Mar, [facility] [place] [facility] [address] [facility] [id number], [place] [address] Mar, [facility] [place] [facility] [address] [id number], [place] [address] Jan, [facility] [place] [facility] [address] [id number] [place] [address] Nov, [facility] [place] [facility] [address] [id number] [place] [address] Nov, [facility] [place] [facility] [address] [id number] [place] [address] Nov, [facility] [place] [facility] [address] [id number] [place] [address] Oct, [facility] [place] [facility] [address] [id number] [place] [address] Sep, [facility] [place] [facility] [address] [id number] [place] [address] Sep, [facility] [place] [facility] [address] [id number] [place] [address] Aug, [facility] [place] [facility] [address] [id number] [place] [address] Aug, [facility] [place] [facility] [address] [id number] [place] [address] Aug, [facility] [place] [facility] [address] [facility] [id number] [place] [address] Aug, [facility] [place] [facility] [address] [id number] [place] [address] Jul, [facility] [place] [facility] [address] [id number] [place] [address] May, [facility] [place] [facility] [address] [id number] [place] [address] Jan, [facility] [place] [facility] [address] [id number] [place] [address] Nov, [facility] [place] [facility] [address] [id number] [place] [address] Apr, [facility] [address] [facility] [id number] [place] [address] Dec, [facility] [address] [facility] [id number], [place] [address] Nov, IMMUNIZATIONS No Known Immunizations SOCIAL HISTORY Never Assessed REASON FOR VISIT PLAN OF CARE VITAL SIGNS MEDICATIONS Unknown Medications RESULTS No Results PROCEDURES No Known procedures INSTRUCTIONS MEDICATIONS ADMINISTERED No Known Medications MEDICAL (GENERAL) HISTORY Type Description Date Medical History Cardiovascular ygitlqyd-IJN-Gydcywab, non-obstructive per (01/2011) Dr. Mendoza Medical History Stress test 03/07/13-Dr. Kelly Dietrich normal Medical History Hypertension Medical History Asthma Medical History Gastrointestinal Disorder--IBS, GERD, Hx of fatty liver Medical History Hernia 1979 Medical History Cervical dysplasia 02/16-Pap LGSIL/[place]-mild dysplasia Medical History Hyperlipidemia Medical History Rheumatoid arthritis (Jeff) in remission 11/27/14 pain she has probably from OA Medical History Anxiety/Depression Medical History Neurologic disorder--peripheral neuropathy Medical History Urologic disorder Hx of incontinence Medical History Endocrine disorder pre-diabetes Medical History interstim for the bladder Medical History Other malaise and fatigue Medical History Cerebrovascular accident (CVA), unspecified mechanism Medical History Hyperinsulinemia Surgical History Inner stem for bladder 06/2015 [...] Kidney injury 07/10/15-07/11/2015 Hospitalization History Symptomatic Hypokalemia/Nause-[facility]ia [facility] 05/13/16 Hospitalization History Stroke 05/03/2017 Hospitalization History stroke 08/24/2017--09/01/2017
--- OUTSIDE RECORDS SUMMARY | 2019-05-22 07:23 | XMS REPORT ---
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 Name Role Phone TEQUILA Lynn Unavailable PROBLEMS Type Condition ICD9-CM Code MPH53-XS Code Onset Dates Condition Status SNOMED Code Problem Asthma J45.909 Active 814089021 Problem Rheumatoid arthritis M06.9 Active 79649256 Problem Chronic pain syndrome G89.4 Active 853514697 Problem Hypertension I10 Active 11944055 Problem Mixed hyperlipidemia E78.2 Active 122911758 Problem Arteriosclerotic coronary artery disease I25.10 Active 16511152 Problem Other insomnia G47.09 Active 634523354 Problem Hemiparesis of left nondominant side as late effect of cerebral infarction I69.354 Active 646129418 Problem Neuropathy G62.9 Active 684926023 Problem Gastroesophageal reflux disease with esophagitis K21.0 Active 029461383 Problem Irritable bowel syndrome with diarrhea K58.0 Active 872904868 Problem Panic attacks F41.0 Active 032152422 Problem Hemiplegia affecting left nondominant side G81.94 Active Problem Dysthymic disorder F34.1 Active 80692934 Problem Generalized anxiety disorder F41.1 Active 70044846 Problem Rheumatoid arthritis with rheumatoid factor of multiple sites without organ or systems involvement M05.79 Active 66863930 Problem Obstructive sleep apnea G47.33 Active 71777196 Problem Morbid (severe) obesity due to excess calories E66.01 Active 714600089 Problem ADHD (attention deficit hyperactivity disorder), combined type F90.2 Active 72907012 Problem Mild episode of recurrent major depressive disorder F33.0 Active 636367283 Problem Seasonal allergies J30.2 Active 594605541 Problem Paroxysmal atrial fibrillation I48.0 Active 992581578 Problem Chronic obstructive pulmonary disease J44.9 Active 95010422 ALLERGIES No Information ENCOUNTERS Encounter Location Date Diagnosis [facility] [id number] [place] [address] May, [id number] [place] [phone] Apr, [id number] [place] [address] [phone] Apr, Hypertension I10 ; Mixed hyperlipidemia E78.2 [...] infarction I69.354 and Elevated blood sugar R73.09 [id number] [place] [address] [phone] Apr, Elevated blood sugar R73.09 [id number] [place] [address] [phone] Apr, Thyroid disorder screening Z13.29 ; Lipid screening Z13.220 ; Urinary tract infection, site not specified N39.0 and Rheumatoid arthritis with rheumatoid factor of multiple sites without organ or systems involvement M05.79 [address] [place] [address] [id number] Apr, Urinary tract infection, site not specified N39.0 ; Hematuria, unspecified R31.9 ; Right lower quadrant abdominal pain R10.31 ; Lipid screening Z13.220 ; Thyroid disorder screening Z13.29 and Irritable bowel syndrome with diarrhea K58.0 [facility] [id number] [place] [address] Mar, [facility] [id number] [place] [address] Mar, [id number] [place] [address] [phone] Mar, [facility] [address] [address] Mar, [place] [id number] [place] [address] February, Generalized anxiety disorder F41.1 and Mild episode of recurrent major depressive disorder F33.0 [place] [id number] [place] [address] Jan, [facility] [id number] [place] [phone] Jan, Herpes zoster without complication B02.9 [place] [id number] [place] [address] Jan, Other insomnia G47.09 ; Hypertension I10 ; Rheumatoid arthritis M06.9 ; Mild episode of recurrent major depressive disorder F33.0 ; Breast cancer screening Z12.39 ; Arteriosclerotic coronary artery disease I25.10 ; Morbid (severe) obesity due to excess calories E66.01 and Hemiparesis of left nondominant side as late effect of cerebral infarction I69.354 [place] [id number] [place] [address] Jan, Asthma J45.909 and Other insomnia G47.09 [place] [id number] [place] [address] Jan, [place] [id number] [place] [address] Dec, Generalized anxiety disorder F41.1 and Mild episode of recurrent major depressive disorder F33.0 [place] [id number] [place] [address] Dec, [place] [id number] [place] [address] Dec, [place] [id number] [place] [address] Dec, [facility] [id number] [place] [address] [phone] Nov, Viral upper respiratory tract infection J06.9 [facility] [id number] [place] [address] Nov, [facility] [id number] [place] [address] Oct, [facility] [id number] [place] [address] Sep, [facility] [id number] [place] [address] Sep, [facility] [id number] [place] [address] Sep, [facility] [id number] [place] [address] Sep, Orthostatic hypotension I95.1 ; Shortness of breath R06.02 ; Right foot pain M79.671 and Morbid (severe) obesity due to excess calories E66.01 [facility] [address] [place] [address] Aug, [facility] [id number] [place] [address] Aug, [facility] [id number] [place] [address] Aug, [facility] [id number] [place] [address] Aug, [facility] [id number] [place] [address] Aug, [facility] [id number] [place] [address] Jul, [facility] [id number] [place] [address] Jul, [facility] [id number] [place] [address] Jul, [facility] [address] [address] Jul, [facility] [id number] [place] [address] Jul, [facility] [address] [place] [address] Jul, [facility] [address] [place] [id number] Jul, Hemiplegia affecting left nondominant side G81.94 ; Chronic obstructive pulmonary disease J44.9 and Weakness R53.1 [place] [id number] [place] [address] Jul, [facility] [address] [place] [id number] Jul, Weakness R53.1 ; Paroxysmal atrial fibrillation I48.0 and Unsteady gait R26.81 [place] [address] [place] [address] Jul, Tobacco abuse Z72.0 [facility] [address] [place] [id number] Jun, History of acute respiratory failure Z87.09 ; Weight gain R63.5 and Tobacco abuse Z72.0 [place] [address] [address] Jun, [place] [id number] [place] [phone] May, Primary insomnia F51.01 [place] [address] [address] May, Mild episode of recurrent major depressive disorder F33.0 [facility] [address] [address] May, [facility] [address] [address] May, Chronic obstructive pulmonary disease, unspecified COPD type J44.9 ; Primary insomnia F51.01 ; Fatigue, unspecified type R53.83 and Weight gain R63.5 [facility] [id number] [place] [address] May, Thrush B37.0 [facility] [id number] [place] [address] May, Mild episode of recurrent major depressive disorder F33.0 and Generalized anxiety disorder F41.1 [facility] [id number] [place] [address] May, Thrush B37.0 [place] [id number] [place] [address] Apr, Cough R05 [place] [id number] [place] [address] Mar, Mild episode of recurrent major depressive disorder F33.0 [facility] [id number] [place] [address] Mar, Mild episode of recurrent major depressive disorder F33.0 and Generalized anxiety disorder F41.1 [place] [id number] [place] [address] Mar, Seasonal allergies J30.2 [facility] [id number] [place] [address] Mar, Seasonal allergies J30.2 [facility] [id number] [place] [address] February, Generalized anxiety disorder F41.1 [facility] [id number] [place] [address] February, Cough R05 and Seasonal allergies J30.2 [facility] [id number] [place] [address] February, Generalized anxiety disorder F41.1 and Mild episode of recurrent major depressive disorder F33.0 [facility] [address] [address] February, Other long-term (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 ; Anxiety F41.9 ; Panic attacks F41.0 and Irritable bowel syndrome with diarrhea K58.0 [facility] [id number] [address] February, [facility] [id number] [place] [address] Jan, Mixed hyperlipidemia E78.2 [facility] [id number] [place] [address] Jan, [facility] [id number] [place] [address] Jan, [facility] [id number] [place] [address] Jan, [facility] [id number] [place] [address] Jan, [facility] [id number] [place] [address] Dec, [facility] [id number] [address] Dec, [facility] [address] [address] Dec, [facility] [id number] [place] [address] Nov, Dysthymic disorder F34.1 [facility] [id number] [place] [address] Oct, [facility] [id number] [address] Oct, [facility] [id number] [place] [address] Oct, [place] [id number] [place] [address] Oct, Diarrhea, unspecified type R19.7 and Dysuria R30.0 [place] [address] [address] Oct, [place] [address] [address] Sep, [place] [address] [address] Sep, [address] [address] Sep, Anxiety F41.[address] [address] Sep, Cerebrovascular accident (CVA), unspecified mechanism I63.9 ; Mixed hyperlipidemia E78.2 ; Gastroesophageal reflux disease with esophagitis K21.0 and Anxiety F41.9 [place] [id number] [place] [address] Sep, [address] [address] Aug, Chronic obstructive pulmonary disease, unspecified J44.9 ; Asthma J45.909 ; Nausea R11.0 ; Dysthymic disorder F34.1 ; Cerebrovascular accident (CVA), unspecified mechanism I63.9 and Rheumatoid arthritis M06.9 [place] [id number] [place] [address] Aug, Nausea R11.0 ; Encounter for immunization Z23 ; Sleep apnea in adult G47.30 ; Rheumatoid arthritis involving multiple sites, unspecified rheumatoid factor presence M06.9 ; Generalized anxiety disorder F41.1 ; Dysthymic disorder F34.1 and Asthma J45.909 [id number] [place] [address] Jul, [place] [id number] [place] [address] May, ADHD (attention deficit hyperactivity disorder), combined type F90.2 ; Generalized anxiety disorder F41.1 and Persistent depressive disorder F34.1 [place] [id number] [place] [address] May, Cerebrovascular accident (CVA), unspecified mechanism I63.9 [place] [address] [address] Apr, Mixed hyperlipidemia E78.2 and Cerebrovascular accident (CVA), unspecified mechanism I63.9 [place] [address] [address] Apr, Generalized anxiety disorder F41.1 [place] [address] [address] Apr, Bronchitis J40 and Tobacco use Z72.0 [place] [address] [address] Apr, Mixed hyperlipidemia E78.2 [place] [address] [address] Apr, Other long-term (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 [place] [address] [address] Apr, [place] [id number] [place] [address] Apr, Generalized anxiety disorder F41.1 [place] [address] [address] Apr, Obstructive sleep apnea G47.33 and Hyperinsulinemia E16.1 [place] [id number] [place] [address] Apr, ADHD (attention deficit hyperactivity disorder), combined type F90.2 ; Generalized anxiety disorder F41.1 and Persistent depressive disorder F34.1 [place] [address] [address] Mar, [facility] [id number] [place] [address] Mar, Generalized anxiety disorder F41.1 [facility] [address] [address] Mar, Tarsal tunnel syndrome of both lower extremities G57.53 [facility] [id number] [place] [address] February, [facility] [id number] [place] [address] February, [facility] [id number] [place] [address] February, Asthma J45.909 [facility] [id number] [place] [address] February, Generalized anxiety disorder F41.1 [facility] [id number] [place] [address] February, Hypoxemia R09.02 ; Hyperglycemia R73.9 ; Rheumatoid arthritis M06.9 and Generalized anxiety disorder F41.1 [facility] [address] [place] [address] February, [facility] [id number] [place] [address] Jan, Chronic obstructive pulmonary disease, unspecified J44.9 [facility] [id number] [place] [address] Jan, Chronic pain syndrome G89.4 [facility] [id number] [place] [address] Jan, Hypoxemia R09.02 [facility] [address] [place] [address] Jan, [facility] [id number] [place] [address] Jan, Chronic obstructive pulmonary disease, unspecified J44.9 ; Hypoxemia R09.02 ; Other insomnia G47.09 and Left anterior shoulder pain M25.512 [facility] [id number] [place] [address] Jan, Numbness in feet R20.0 and Neuropathy G62.9 [place] [address] [address] Jan, [place] [address] [address] Dec, Acute pain of left shoulder M25.512 [place] [id number] [place] [address] Dec, Acute pain of left shoulder M25.512 [place] [id number] [place] [address] Dec, Generalized anxiety disorder F41.1 [place] [id number] [place] [address] Dec, Generalized anxiety disorder F41.1 [place] [id number] [place] [address] Nov, ADHD (attention deficit hyperactivity disorder), combined type F90.2 ; Generalized anxiety disorder F41.1 and Persistent depressive disorder F34.1 [place] [id number] [place] [address] Nov, Acute pain of left shoulder M25.512 [place] [id number] [place] [address] Nov, ADHD (attention deficit hyperactivity disorder), combined type F90.2 ; Generalized anxiety disorder F41.1 and Persistent depressive disorder F34.1 [place] [id number] [place] [address] 17 Feb, 2017 Chronic pain syndrome G89.4 [facility] [address] [address] Nov, Chronic pain syndrome G89.4 [facility] [address] [place] [address] Nov, Acute pain of left shoulder M25.512 [facility] [address] [place] [address] Nov, Generalized anxiety disorder F41.1 [facility] [address] [place] [address] Nov, Acute pain of left shoulder M25.512 [place] [id number] [place] [address] Nov, ADHD (attention deficit hyperactivity disorder), combined type F90.2 ; Generalized anxiety disorder F41.1 and Persistent depressive disorder F34.1 [place] [address] [place] [address] Nov, Acute pain of left shoulder M25.512 ; Generalized anxiety disorder F41.1 ; Chronic pain syndrome G89.4 ; Hyperinsulinemia E16.1 ; Pain of left foot M79.672 and Pain in right foot M79.671 [place] [address] [address] Oct, ADHD (attention deficit hyperactivity disorder), combined type F90.2 ; Generalized anxiety disorder F41.1 and Dysthymic disorder F34.1 [place] [address] [address] Sep, [place] [id number] [place] [address] Sep, [facility] [address] [address] Sep, Routine gynecological examination V72.31 ; Cervical cancer screening Z12.4 ; Breast cancer screening Z12.39 ; Colon cancer screening Z12.11 ; Hypokalemia E87.6 ; Herpes simplex type 1 infection B00.9 and Abscess of right axilla L02.411 [place] [id number] [place] [address] Sep, [place] [id number] [place] [address] Sep, ADHD (attention deficit hyperactivity disorder), combined type F90.2 ; Generalized anxiety disorder F41.1 and Dysthymic disorder F34.1 [place] [id number] [place] [address] Aug, [place] [address] [address] Aug, [place] [address] [address] Aug, Generalized anxiety disorder F41.1 [place] [id number] [place] [address] Aug, ADHD (attention deficit hyperactivity disorder), combined type F90.2 ; Generalized anxiety disorder F41.1 and Dysthymic disorder F34.1 [place] [id number] [place] [address] Jul, Chronic pain syndrome G89.4 ; Hypertension I10 ; Hypokalemia E87.6 ; Asthma J45.909 and Nausea R11.0 [place] [id number] [place] [address] Jul, [place] [id number] [place] [address] Jul, Asthma J45.909 [place] [id number] [place] [address] Jul, ADHD (attention deficit hyperactivity disorder), combined type F90.2 ; Generalized anxiety disorder F41.1 and Dysthymic disorder F34.1 [place] [address] [address] Jul, [place] [address] [address] Jul, Hypertension I10 ; Arteriosclerotic coronary artery disease I25.10 ; Mixed hyperlipidemia E78.2 ; 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 and Hyperglycemia R73.9 [place] [address] [address] 16 Jun, 2016 Hypokalemia E87.6 and Hyperglycemia R73.9 [place] [address] [address] 14 Jun, 2016 [place] [address] [address] Jun, Abnormal kidney function N28.9 [place] [address] [address] Jun, [place] [address] [address] Jun, ADHD (attention deficit hyperactivity disorder), combined type F90.2 ; Generalized anxiety disorder F41.1 and Dysthymic disorder F34.1 [place] [address] [address] Jun, Generalized anxiety disorder F41.1 and Dysthymic disorder F34.1 [place] [address] [address] Jun, Hypokalemia E87.6 [place] [address] [address] May, Hypokalemia E87.6 ; Vertigo R42 and Hyperinsulinemia E16.1 [place] [address] [address] May, [place] [address] [address] May, Abnormal kidney function N28.9 ; Hyperinsulinemia E16.1 and Nausea R11.0 [place] [address] [address] May, Hypokalemia E87.6 ; Nausea R11.0 ; Epigastric pain R10.13 ; Dehydration E86.0 ; Diaphoresis R61 and Right arm pain M79.601 [place] [address] [address] May, [place] [address] [address] May, Hypokalemia E87.6 [place] [address] [address] May, Hypokalemia E87.6 [place] [address] [address] Apr, [place] [address] [address] Apr, ADHD (attention deficit hyperactivity disorder), combined type F90.2 ; Generalized anxiety disorder F41.1 and Dysthymic disorder F34.1 [place] [id number] [place] [address] Apr, Right arm pain M79.601 and Hyperinsulinemia E16.1 [place] [id number] [place] [address] Mar, [place] [address] [address] Mar, [place] [address] [address] Mar, Hyperinsulinemia E16.1 ; Hyperlipidemia, unspecified hyperlipidemia type E78.5 ; Central venous catheter in place Z78.9 ; Generalized anxiety disorder F41.1 and Urinary tract infection, site not specified N39.0 [place] [id number] [address] Mar, ADHD (attention deficit hyperactivity disorder), combined type F90.2 ; Generalized anxiety disorder F41.1 and Dysthymic disorder F34.1 [place] [id number] [address] February, ADHD (attention deficit hyperactivity disorder), combined type F90.2 ; Generalized anxiety disorder F41.1 and Dysthymic disorder F34.1 [place] [address] [id number] [place] [id number] February, [place] [address] [place] [id number] [place] [id number] February, [place] [address] [place] [id number] [place] [id number] February, Hypertension I10 and Weight gain R63.5 [place] [address] [place] [id number] [place] [phone] February, Major depressive disorder, recurrent, moderate F33.1 and Generalized anxiety disorder F41.1 [place] [id number] [place] [address] February, ADHD (attention deficit hyperactivity disorder), combined type F90.2 ; Generalized anxiety disorder F41.1 and Dysthymic disorder F34.1 [place] [id number] [place] [address] February, [place] [id number] [place] [address] February, Asthma J45.909 ; Weight gain R63.5 ; Hypertension I10 ; Rheumatoid arthritis M06.9 and Chronic pain syndrome G89.4 [place] [id number] [place] [address] Jan, ADHD (attention deficit hyperactivity disorder), combined type F90.2 ; Generalized anxiety disorder F41.1 and Dysthymic disorder F34.1 [facility] [address] [address] Dec, ADHD (attention deficit hyperactivity disorder), combined type F90.2 ; Generalized anxiety disorder F41.1 and Dysthymic disorder F34.1 [facility] [address] [address] Dec, [facility] [id number] [place] [address] Nov, [facility] [address] [address] Nov, [facility] [id number] [place] [address] Nov, [facility] [address] [address] Nov, [facility] [id number] [place] [address] Oct, [facility] [id number] [place] [address] Oct, [facility] [address] [address] Oct, [facility] [address] [address] Sep, [facility] [address] [address] Sep, [facility] [address] [address] Sep, Agoraphobia with panic disorder F40.01 ; Attention-deficit hyperactivity disorder, combined type F90.2 and Dysthymic disorder F34.1 [facility] [address] [address] Aug, [facility] [id number] [address] Aug, [facility] [id number] [place] [address] Aug, [facility] [id number] [place] [address] Aug, Dysthymic disorder F34.1 ; Generalized anxiety disorder F41.1 and ADHD (attention deficit hyperactivity disorder), combined type F90.2 [facility] [id number] [place] [address] Aug, ADHD (attention deficit hyperactivity disorder), combined type F90.2 ; Generalized anxiety disorder F41.1 and Dysthymic disorder F34.1 [facility] [id number] [place] [address] Jul, Urinary tract infection, site not specified N39.0 ; Hypotension, unspecified I95.9 and Breast cancer screening Z12.39 [facility] [id number] [place] [address] Jul, [facility] [id number] [place] [address] Jul, [facility] [id number] [place] [address] Jul, Urinary tract infection, site not specified N39.0 ; Nausea R11.0 ; Gastroenteritis K52.9 ; Renal failure N19 and Other hypotension I95.89 [facility] [id number] [place] [address] Jul, [facility] [id number] [place] [address] Jul, [facility] [id number] [place] [address] Jul, [facility] [id number] [place] [address] Jun, [facility] [address] [address] Jun, Major depression in partial remission 296.25 ; Generalized anxiety disorder 300.02 and ADHD, predominantly inattentive type 314.01 [facility] [id number] [place] [address] May, [facility] [id number] [place] [address] Apr, Major depressive disorder, recurrent episode, severe, without mention of psychotic behavior 296.33 ; Agoraphobia with panic disorder 300.21 and Generalized anxiety disorder 300.[address] [address] Apr, ADHD (attention deficit hyperactivity disorder), combined type 314.01 ; Generalized anxiety disorder 300.02 and Dysthymic disorder 300.[address] [address] Apr, CAD (coronary artery disease) 414.00 ; HTN (hypertension) 401.9 and Tobacco use 305.1 [place] [id number] [place] [address] Apr, [place] [id number] [place] [address] Mar, ADHD (attention deficit hyperactivity disorder), combined type 314.01 ; Generalized anxiety disorder 300.02 ; Dysthymic disorder 300.4 ; No condition on [place] II V71.09 ; Rheumatoid arthritis 714.0 ; Incontinence 788.30 ; Irritable bowel syndrome 564.1 ; Osteoporosis 733.00 and Chronic pain 338.29 [place] [id number] [place] [address] Mar, Agoraphobia with panic disorder 300.21 and Major depressive disorder, recurrent episode, moderate 296.32 [place] [id number] [place] [address] Mar, [address] [place] [address] February, [facility] [address] [address] February, Agoraphobia with panic disorder 300.21 and Major depressive disorder, recurrent episode, moderate 296.32 [facility] [address] [place] [address] February, [facility] [address]005[address] [address] Jan, [facility] [id number] [place] [address] Jan, [facility] [address] [address] Dec, [facility] [address] [address] Dec, [facility] [address] [address] Dec, [facility] [address] [place] [address] Dec, [facility] [address] [address] Dec, [facility] [address] [address] Dec, [facility] [place] [facility] [address] [address] Nov, [facility] [place] [facility] [address] [id number] [place] [address] Nov, [facility] [place] [facility] [address] [address] Nov, [facility] [place] [facility] [id number] [address] Nov, [facility] [place] [facility] [address] [facility] [id number] [place] [address] 17 Nov, 2014 [facility] [place] [facility] [address] [id number] [place] [address] Nov, 2014 [facility] [place] [facility] [address] [id number] [place] [address] Nov, 2014 [facility] [place] [facility] [address] [id number] [place] [address] Nov, [facility] [place] [facility] [address] [id number] [place] [address] Oct, [facility] [place] [facility] [address] [id number] [place] [address] Oct, [facility] [place] [facility] [address] [id number] [place] [address] Oct, [facility] [place] [facility] [address] [id number] [place] [address] Oct, [facility] [place] [facility] [address] [id number] [place] [address] Oct, [facility] [place] [facility] [address] [id number] [place] [address] Oct, [facility] [place] [facility] [address] [id number] [place] [address] Sep, [facility] [place] [facility] [address] [id number] [place] [address] Sep, [facility] [place] [facility] [address] [id number] [place] [address] Sep, [facility] [place] [facility] [address] [id number] [place] [address] Sep, [facility] [place] [facility] [address] [id number] [place] [address] Sep, [facility] [place] [facility] [address] [id number] [place] [address] 05 Sep, 2014 [facility] [place] [facility] [address] [id number] [place] [address] Sep, [facility] [place] [facility] [address] [id number] [place] [address] Aug, [facility] [place] [facility] [address] [id number] [place] [address] Aug, [facility] [place] [facility] [address] [id number] [place] [address] Aug, [facility] [place] [facility] [address] [id number] [place] [address] Aug, [facility] [place] [facility] [address] [id number] [place] [address] Aug, [facility] [place] [facility] [address] [id number] [place] [address] Aug, [facility] [place] [facility] [address] [id number] [address] Jul, [facility] [place] [facility] [address] [id number] [place] [address] Jul, [facility] [place] [facility] [address] [id number] [place] [address] Jul, [facility] [place] [facility] [address] [id number] [address] Jul, [facility] [place] [facility] [address] [id number] [place] [address] Jul, [facility] [place] [facility] [address] [id number] [place] [address] Jul, [facility] [place] [facility] [address] [id number] [place] [address] Jun, [facility] [place] [facility] [address] [id number] [place] [address] Jun, [facility] [place] [facility] [address] [id number] [place] [address] May, [facility] [address] [id number] [place] [address] May, [facility] [place] [facility] [address] [id number] [place] [address] Apr, [facility] [place] [facility] [address] [id number] [place] [address] Apr, [facility] [place] [facility] [address] [id number] [place] [address] Apr, [facility] [place] [facility] [address] [id number] [place] [address] Apr, [facility] [place] [facility] [address] [id number] [place] [address] Mar, [facility] [place] [facility] [address] [id number] [place] [address] Mar, [facility] [address] [id number] [place] [address] Mar, [facility] [place] [facility] [address] [id number] [place] [address] Mar, [facility] [address] [id number] [place] [address] February, [facility] [place] [facility] [address] [id number] [place] [address] February, [facility] [place] [facility] [address] [id number] [place] [address] February, [facility] [place] [facility] [address] [id number] [place] [address] February, [facility] [place] [facility] [address] [id number] [place] [address] February, [facility] [place] [facility] [address] [id number] [place] [address] February, [facility] [place] [facility] [address] [id number] [place] [address] Jan, [facility] [place] [facility] [address] [id number] [place] [address] Jan, [facility] [place] [facility] [address] [id number] [place] [address] Dec, [facility] [place] [facility] [address] [id number] [place] [address] Dec, [facility] [place] [facility] [address] [id number] [place] [address] Nov, [facility] [place] [facility] [address] [id number] [place] [address] Nov, [facility] [place] [facility] [address] [id number] [place] [address] Oct, [facility] [place] [facility] [address] [id number] [place] [address] Oct, [facility] [place] [facility] [address] [id number] [place] [address] Oct, [facility] [place] [facility] [address] [id number] [place] [address] Oct, [facility] [place] [facility] [address] [id number] [place] [address] Sep, [facility] [place] [facility] [address] [id number] [place] [address] Sep, [facility] [place] [facility] [address] [id number] [place] [address] Sep, [facility] [place] [facility] [address] [id number] [place] [address] Sep, [facility] [place] [facility] [address] [id number] [address] Sep, [facility] [place] [facility] [address] [id number] [place] [address] Sep, [facility] [address] [id number] [place] [address] Sep, [facility] [place] [facility] [address] [facility] [id number] [place] [address] Sep, [facility] [place] [facility] [address] [facility] [id number] [place] [address] Aug, [facility] [place] [facility] [address] [id number] [place] [address] Aug, [facility] [place] [facility] [id number] [place] [address] Aug, [facility] [place] [facility] [address] [facility] [id number] [place] [address] Aug, [facility] [address] [address] Aug, [facility] [place] [facility] [address] [facility] [id number] [place] [address] Aug, [facility] [place] [facility] [id number] [place] [address] Aug, [facility] [place] [facility] [id number] [address] Aug, [facility] [place] [facility] [address] [facility] [id number] [place] [address] Aug, [facility] [place] [facility] [address] [facility] [id number] [place] [address] Jul, [facility] [place] [facility] [address] [id number] [place] [address] Jun, [facility] [place] [facility] [address] [facility] [id number] [place] [address] May, [facility] [place] [facility] [address] [id number] [address] May, [facility] [place] [facility] [address] [id number] [place] [address] May, [facility] [place] [facility] [address] [id number] [place] [address] Apr, [facility] [place] [facility] [address] [id number] [place] [address] Mar, [facility] [place] [facility] [address] [id number] [place] [address] February, [facility] [place] [facility] [address] [id number] [place] [address] Oct, [facility] [place] [facility] [address] [id number] [place] [address] Oct, [facility] [place] [facility] [address] [id number] [place] [address] Oct, [facility] [place] [facility] [address] [id number] [place] [address] Oct, [facility] [place] [facility] [address] [id number] [place] [address] Oct, [facility] [place] [facility] [address] [id number] [place] [address] Oct, [facility] [place] [facility] [address] [id number] [place] [address] Sep, [facility] [place] [facility] [address] [id number] [place] [address] Sep, [facility] [place] [facility] [address] [id number] [place] [address] Aug, [facility] [place] [facility] [address] [id number] [place] [address] Aug, [facility] [place] [facility] [address] [id number] [place] [address] Jul, [facility] [place] [facility] [address] [id number] [place] [address] Jul, [facility] [place] [facility] [address] [id number] [place] [address] Jul, [facility] [place] [facility] [address] [id number] [place] [address] Jul, [facility] [place] [facility] [address] [id number] [place] [address] Jul, [facility] [place] [facility] [address] [id number] [place] [address] Jul, [facility] [place] [facility] [address] [id number] [place] [address] Jul, [facility] [place] [facility] [address] [id number] [place] [address] Jul, [facility] [place] [facility] [address] [id number] [place] [address] Jun, [facility] [place] [facility] [address] [id number] [place] [address] Jun, [facility] [place] [facility] [address] [id number] [place] [address] May, [facility] [place] [facility] [address] [id number] [place] [address] Apr, [facility] [place] [facility] [address] [id number] [place] [address] Mar, [facility] [place] [facility] [address] [id number] [place] [address] Mar, [facility] [place] [facility] [address] [id number] [place] [address] Mar, [facility] [place] [facility] [address] [id number] [place] [address] Mar, [facility] [place] [facility] [address] [id number] [place] [address] Jan, [facility] [place] [facility] [address] [id number] [place] [address] 14 Nov, 2011 [facility] [address] [id number] [place] [address] Nov, [facility] [place] [facility] [address] [id number] [place] [address] Nov, [facility] [address] [id number] [place] [address] Oct, [facility] [address] [id number] [place] [address] Sep, [facility] [address] [id number] [place] [address] Sep, [facility] [address] [id number] [place] [address] Aug, [facility] [address] [id number] [place] [address] Aug, [facility] [address] [id number] [place] [address] Aug, [facility] [address] [facility] [id number] [place] [address] Aug, [facility] [address] [facility] [id number] [place] [address] Jul, [facility] [address] [id number] [place] [address] May, [facility] [address] [id number] [place] [address] Jan, [facility] [place] [facility] [address] [id number] [place] [address] Nov, [facility] [place] [facility] [address] [id number] [place] [address] Apr, [facility] [place] [facility] [address] [id number] [place] [address] Dec, [facility] [address] [facility] [id number] [place] [address] Nov, IMMUNIZATIONS No Known Immunizations SOCIAL HISTORY Never Assessed REASON FOR VISIT PLAN OF CARE VITAL SIGNS Height 67 in 2014-10-18 Weight 238.25 lbs 2014-10-18 Temperature 97.8 degrees Fahrenheit 2014-10-18 Heart Rate 88 bpm 2014-10-18 Respiratory Rate 32 2014-10-18 Blood pressure systolic 140 mmHg 2014-10-18 Blood pressure diastolic 82 mmHg 2014-10-18 MEDICATIONS Unknown Medications RESULTS No Results PROCEDURES No Known procedures INSTRUCTIONS MEDICATIONS ADMINISTERED No Known Medications MEDICAL (GENERAL) HISTORY Type Description Date Medical History Cardiovascular [id number]-Gpvbcutn, non-obstructive per [facility] (01/2011) Dr. Mendoza Medical History Stress test 03/07/13-Dr. Kelly Dietrich normal Medical History Hypertension Medical History Asthma Medical History Gastrointestinal Disorder--IBS, GERD, Hx of fatty liver Medical History Hernia 1979 Medical History Cervical dysplasia 02/16-Pap LGSIL/Omega-mild dysplasia Medical History Hyperlipidemia Medical History Rheumatoid [...] Hospitalization History Symptomatic Hypokalemia/Nause-[facility]ia [facility] 05/13/16 Hospitalization History Stroke 05/03/2017 Hospitalization History stroke 08/24/2017--09/01/2017
--- OUTSIDE RECORDS SUMMARY | 2019-05-22 07:23 | XMS REPORT ---
Author Author TEQUILA Lynn Organization [facility] Address [address] [place] [address] Care Team Providers Care Bonsai Culturist Name Role Phone TEQUILA Lynn Unavailable PROBLEMS Type Condition ICD9-CM Code [id number] Code Onset Dates Condition Status SNOMED Code Problem Asthma J45.909 Active 469057151 Problem Rheumatoid arthritis M06.9 Active 59455209 Problem Chronic pain syndrome G89.4 Active 669582016 Problem Hypertension I10 Active 78084547 Problem Mixed hyperlipidemia E78.2 Active 945945149 Problem Arteriosclerotic coronary artery disease I25.10 Active 10049845 Problem Other insomnia G47.09 Active 822008855 Problem Hemiparesis of left nondominant side as late effect of cerebral infarction I69.354 Active 634640722 Problem Neuropathy G62.9 Active 591354766 Problem Gastroesophageal reflux disease with esophagitis K21.0 Active 474761178 Problem Irritable bowel syndrome with diarrhea K58.0 Active 740013393 Problem Panic attacks F41.0 Active 108285346 Problem Hemiplegia affecting left nondominant side G81.94 Active Problem Dysthymic disorder F34.1 Active 82602885 Problem Generalized anxiety disorder F41.1 Active 79265025 Problem Rheumatoid arthritis with rheumatoid factor of multiple sites without organ or systems involvement M05.79 Active 82257165 Problem Obstructive sleep apnea G47.33 Active 75430196 Problem Morbid (severe) obesity due to excess calories E66.01 Active 281313963 Problem ADHD (attention deficit hyperactivity disorder), combined type F90.2 Active 68607827 Problem Mild episode of recurrent major depressive disorder F33.0 Active 842865732 Problem Seasonal allergies J30.2 Active 397076561 Problem Paroxysmal atrial fibrillation I48.0 Active 068666497 Problem Chronic obstructive pulmonary disease J44.9 Active 56191679 ALLERGIES No Information ENCOUNTERS Encounter Location Date Diagnosis [facility] [id number] [place] [address] May, [id number] [place] [id number] Apr, [id number] [place] [phone] Apr, Hypertension I10 ; Mixed hyperlipidemia E78.2 [...] infarction I69.354 and Elevated blood sugar R73.09 [id number] [place] [address] [id number] Apr, Elevated blood sugar R73.09 [id number] [place] [address] [phone] Apr, Thyroid disorder screening Z13.29 ; Lipid screening Z13.220 ; Urinary tract infection, site not specified N39.0 and Rheumatoid arthritis with rheumatoid factor of multiple sites without organ or systems involvement M05.79 [address] [place] [phone] Apr, Urinary tract infection, site not specified N39.0 ; Hematuria, unspecified R31.9 ; Right lower quadrant abdominal pain R10.31 ; Lipid screening Z13.220 ; Thyroid disorder screening Z13.29 and Irritable bowel syndrome with diarrhea K58.0 [facility] [id number] [place] [address] Mar, [facility] [id number] [place] [address] Mar, [address] [place] [address] [phone] Mar, [facility] [address] [place] [address] Mar, [place] [id number] [place] [address] February, Generalized anxiety disorder F41.1 and Mild episode of recurrent major depressive disorder F33.0 [place] [id number] [place] [address] Jan, [facility] [id number] [place] [phone] Jan, Herpes zoster without complication B02.9 [place] [id number] [place] [address] Jan, Other insomnia G47.09 ; Hypertension I10 ; Rheumatoid arthritis M06.9 ; Mild episode of recurrent major depressive disorder F33.0 ; Breast cancer screening Z12.39 ; Arteriosclerotic coronary artery disease I25.10 ; Morbid (severe) obesity due to excess calories E66.01 and Hemiparesis of left nondominant side as late effect of cerebral infarction I69.354 [place] [id number] [place] [address] Jan, Asthma J45.909 and Other insomnia G47.09 [place] [id number] [place] [address] Jan, [place] [id number] [place] [address] Dec, Generalized anxiety disorder F41.1 and Mild episode of recurrent major depressive disorder F33.0 [place] [address] [place] [address] Dec, [place] [id number] [place] [address] Dec, [place] [address] [place] [address] Dec, [facility] [address] [place] [address] [id number] Nov, Viral upper respiratory tract infection J06.9 [facility] [id number] [place] [address] Nov, [facility] [id number] [place] [address] Oct, [facility] [id number] [place] [address] Sep, [facility] [id number] [place] [address] Sep, [facility] [id number] [place] [address] Sep, [facility] [id number] [place] [address] Sep, Orthostatic hypotension I95.1 ; Shortness of breath R06.02 ; Right foot pain M79.671 and Morbid (severe) obesity due to excess calories E66.01 [facility] [address] [place] [address] Aug, [facility] [id number] [place] [address] Aug, [facility] [id number] [place] [address] Aug, [facility] [id number] [place] [address] Aug, [facility] [id number] [place] [address] Aug, [facility] [id number] [place] [address] Jul, [facility] [address] [place] [address] Jul, [facility] [id number] [place] [address] Jul, [facility] [address], [place] [address] Jul, [facility] [id number] [place] [address] Jul, [facility] [address] [place] [address] Jul, [facility] [address] [place] [id number] Jul, Hemiplegia affecting left nondominant side G81.94 ; Chronic obstructive pulmonary disease J44.9 and Weakness R53.1 [place] [id number] [place] [address] Jul, [facility] [address] [place] [id number] Jul, Weakness R53.1 ; Paroxysmal atrial fibrillation I48.0 and Unsteady gait R26.81 [place] [address] [place] [address] Jul, Tobacco abuse Z72.0 [facility] [address] [place] [id number] Jun, History of acute respiratory failure Z87.09 ; Weight gain R63.5 and Tobacco abuse Z72.0 [place] [address], [place] [address] Jun, [place] [address] [place] [address] May, Primary insomnia F51.01 [place] [address], [place] [address] May, Mild episode of recurrent major depressive disorder F33.0 [facility] [address], [place] [address] May, [facility] [address], [place] [address] May, Chronic obstructive pulmonary disease, unspecified COPD type J44.9 ; Primary insomnia F51.01 ; Fatigue, unspecified type R53.83 and Weight gain R63.5 [facility] [id number] [place] [address] May, Thrush B37.0 [facility] [id number] [place] [address] May, Mild episode of recurrent major depressive disorder F33.0 and Generalized anxiety disorder F41.1 [facility] [id number] [place] [address] May, Thrush B37.0 [place] [id number] [place] [address] Apr, Cough R05 [place] [id number] [place] [address] Mar, Mild episode of recurrent major depressive disorder F33.0 [facility] [id number] [place] [address] Mar, Mild episode of recurrent major depressive disorder F33.0 and Generalized anxiety disorder F41.1 [place] [id number] [place] [address] Mar, Seasonal allergies J30.2 [facility] [id number] [place] [address] Mar, Seasonal allergies J30.2 [facility] [id number] [place] [address] February, Generalized anxiety disorder F41.1 [facility] [id number] [place] [address] February, Cough R05 and Seasonal allergies J30.2 [facility] [id number] [place] [address] February, Generalized anxiety disorder F41.1 and Mild episode of recurrent major depressive disorder F33.0 [facility] [address], [place] [address] February, Other care home (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 ; Anxiety F41.9 ; Panic attacks F41.0 and Irritable bowel syndrome with diarrhea K58.0 [facility] [id number] [address] February, [facility] [id number] [place] [address] Jan, Mixed hyperlipidemia E78.2 [facility] [id number] [place] [address] Jan, [facility] [id number] [place] [address] Jan, [facility] [id number] [place] [address] Jan, [facility] [id number] [place] [address] Jan, [facility] [id number] [place] [address] Dec, [facility] [id number] [place] [address] Dec, [facility] [address], [place] [address] Dec, [facility] [id number] [place] [address] Nov, Dysthymic disorder F34.1 [facility] [address] [place] [address] Oct, [facility] [id number] [address] Oct, [facility] [id number] [place] [address] Oct, [place] [id number] [place] [address] Oct, Diarrhea, unspecified type R19.7 and Dysuria R30.0 [place] [address] [address] Oct, [place] [address] [address] Sep, [place] [address] [address] Sep, [address] [address] Sep, Anxiety F41.[address] [address] Sep, Cerebrovascular accident (CVA), unspecified mechanism I63.9 ; Mixed hyperlipidemia E78.2 ; Gastroesophageal reflux disease with esophagitis K21.0 and Anxiety F41.9 [place] [id number] [place] [address] Sep, [address] [address] Aug, Chronic obstructive pulmonary disease, unspecified J44.9 ; Asthma J45.909 ; Nausea R11.0 ; Dysthymic disorder F34.1 ; Cerebrovascular accident (CVA), unspecified mechanism I63.9 and Rheumatoid arthritis M06.9 [place] [id number] [place] [address] Aug, Nausea R11.0 ; Encounter for immunization Z23 ; Sleep apnea in adult G47.30 ; Rheumatoid arthritis involving multiple sites, unspecified rheumatoid factor presence M06.9 ; Generalized anxiety disorder F41.1 ; Dysthymic disorder F34.1 and Asthma J45.909 [id number] [place] [address] Jul, [place] [id number] [place] [address] May, ADHD (attention deficit hyperactivity disorder), combined type F90.2 ; Generalized anxiety disorder F41.1 and Persistent depressive disorder F34.1 [place] [id number] [place] [address] May, Cerebrovascular accident (CVA), unspecified mechanism I63.9 [place] [address] [address] Apr, Mixed hyperlipidemia E78.2 and Cerebrovascular accident (CVA), unspecified mechanism I63.9 [place] [address] [address] Apr, Generalized anxiety disorder F41.1 [place] [address] [address] Apr, Bronchitis J40 and Tobacco use Z72.0 [place] [address] [address] Apr, Mixed hyperlipidemia E78.2 [place] [address] [address] Apr, Other care home (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 [place] [address] [address] Apr, [place] [id number] [place] [address] Apr, Generalized anxiety disorder F41.1 [place] [address] [address] Apr, Obstructive sleep apnea G47.33 and Hyperinsulinemia E16.1 [place] [id number] [place] [address] Apr, ADHD (attention deficit hyperactivity disorder), combined type F90.2 ; Generalized anxiety disorder F41.1 and Persistent depressive disorder F34.1 [place] [address], [place] [address] Mar, [facility] [id number] [place] [address] Mar, Generalized anxiety disorder F41.1 [facility] [address], [place] [address] Mar, Tarsal tunnel syndrome of both lower extremities G57.53 [facility] [id number] [place] [address] February, [facility] [id number] [place] [address] February, [facility] [id number] [place] [address] February, Asthma J45.909 [facility] [id number] [place] [address] February, Generalized anxiety disorder F41.1 [facility] [id number] [place] [address] February, Hypoxemia R09.02 ; Hyperglycemia R73.9 ; Rheumatoid arthritis M06.9 and Generalized anxiety disorder F41.1 [facility] [address] [place] [address] February, [facility] [id number] [place] [address] Jan, Chronic obstructive pulmonary disease, unspecified J44.9 [facility] [id number] [place] [address] Jan, Chronic pain syndrome G89.4 [facility] [id number] [place] [address] Jan, Hypoxemia R09.02 [facility] [address] [place] [address] Jan, [facility] [id number] [place] [address] Jan, Chronic obstructive pulmonary disease, unspecified J44.9 ; Hypoxemia R09.02 ; Other insomnia G47.09 and Left anterior shoulder pain M25.512 [facility] [id number] [place] [address] Jan, Numbness in feet R20.0 and Neuropathy G62.9 [place] [address] [address] Jan, [place] [address] [address] Dec, Acute pain of left shoulder M25.512 [place] [id number] [place] [address] Dec, Acute pain of left shoulder M25.512 [place] [id number] [place] [address] Dec, Generalized anxiety disorder F41.1 [place] [id number] [place] [address] Dec, Generalized anxiety disorder F41.1 [place] [id number] [place] [address] Nov, ADHD (attention deficit hyperactivity disorder), combined type F90.2 ; Generalized anxiety disorder F41.1 and Persistent depressive disorder F34.1 [place] [id number] [place] [address] Nov, Acute pain of left shoulder M25.512 [place] [id number] [place] [address] Nov, ADHD (attention deficit hyperactivity disorder), combined type F90.2 ; Generalized anxiety disorder F41.1 and Persistent depressive disorder F34.1 [place] [id number] [place] [address] 17 Feb, 2017 Chronic pain syndrome G89.4 [facility] [address], [place] [address] Nov, Chronic pain syndrome G89.4 [facility] [id number] [place] [address] Nov, Acute pain of left shoulder M25.512 [facility] [address] [place] [address] Nov, Generalized anxiety disorder F41.1 [facility] [id number] [place] [address] Nov, Acute pain of left shoulder M25.512 [place] [id number] [place] [address] Nov, ADHD (attention deficit hyperactivity disorder), combined type F90.2 ; Generalized anxiety disorder F41.1 and Persistent depressive disorder F34.1 [place] [address] [place] [address] Nov, Acute pain of left shoulder M25.512 ; Generalized anxiety disorder F41.1 ; Chronic pain syndrome G89.4 ; Hyperinsulinemia E16.1 ; Pain of left foot M79.672 and Pain in right foot M79.671 [place] [address], [place] [address] Oct, ADHD (attention deficit hyperactivity disorder), combined type F90.2 ; Generalized anxiety disorder F41.1 and Dysthymic disorder F34.1 [place] [address], [place] [address] Sep, [place] [id number] [place] [address] Sep, [facility] [address], [place] [address] Sep, Routine gynecological examination V72.31 ; Cervical cancer screening Z12.4 ; Breast cancer screening Z12.39 ; Colon cancer screening Z12.11 ; Hypokalemia E87.6 ; Herpes simplex type 1 infection B00.9 and Abscess of right axilla L02.411 [place] [id number] [place] [address] Sep, [place] [id number] [place] [address] Sep, ADHD (attention deficit hyperactivity disorder), combined type F90.2 ; Generalized anxiety disorder F41.1 and Dysthymic disorder F34.1 [place] [id number] [place] [address] Aug, [place] [address] [address] Aug, [place] [address] [address] Aug, Generalized anxiety disorder F41.1 [place] [id number] [place] [address] Aug, ADHD (attention deficit hyperactivity disorder), combined type F90.2 ; Generalized anxiety disorder F41.1 and Dysthymic disorder F34.1 [place] [id number] [place] [address] Jul, Chronic pain syndrome G89.4 ; Hypertension I10 ; Hypokalemia E87.6 ; Asthma J45.909 and Nausea R11.0 [place] [id number] [place] [address] Jul, [place] [id number] [place] [address] Jul, Asthma J45.909 [place] [id number] [place] [address] Jul, ADHD (attention deficit hyperactivity disorder), combined type F90.2 ; Generalized anxiety disorder F41.1 and Dysthymic disorder F34.1 [place] [address] [address] Jul, [place] [address] [address] Jul, Hypertension I10 ; Arteriosclerotic coronary artery disease I25.10 ; Mixed hyperlipidemia E78.2 ; Other terminal manager (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1 and Dysthymic disorder F34.1 [place] [address] [address] Jun, Hypokalemia E87.6 [place] [address] [address] May, Hypokalemia E87.6 ; Vertigo R42 and Hyperinsulinemia E16.1 [place] [address] [address] May, [place] [address] [address] May, Abnormal kidney function N28.9 ; Hyperinsulinemia E16.1 and Nausea R11.0 [place] [address] [address] May, Hypokalemia E87.6 ; Nausea R11.0 ; Epigastric pain R10.13 ; Dehydration E86.0 ; Diaphoresis R61 and Right arm pain M79.601 [place] [address] [address] May, [place] [address] [address] May, Hypokalemia E87.6 [place] [address] [address] May, Hypokalemia E87.6 [place] [address] [address] Apr, [place] [address] [address] Apr, ADHD (attention deficit hyperactivity disorder), combined type F90.2 ; Generalized anxiety disorder F41.1 and Dysthymic disorder F34.1 [place] [address] [place] [id number] [place] [address] Apr, Right arm pain M79.601 and Hyperinsulinemia E16.1 [place] [address] [place] [id number] [place] [address] Mar, [place] [address] [address] Mar, [place] [address] [address] Mar, Hyperinsulinemia E16.1 ; Hyperlipidemia, unspecified hyperlipidemia type E78.5 ; Central venous catheter in place Z78.9 ; Generalized anxiety disorder F41.1 and Urinary tract infection, site not specified N39.0 [place] [id number], [place] [address] Mar, ADHD (attention deficit hyperactivity disorder), combined type F90.2 ; Generalized anxiety disorder F41.1 and Dysthymic disorder F34.1 [place] [id number], [place] [address] February, ADHD (attention deficit hyperactivity disorder), combined type F90.2 ; Generalized anxiety disorder F41.1 and Dysthymic disorder F34.1 [place] [address] [place] [id number] [place] [address] February, [place] [address] [place] [id number] [place] [address] February, [place] [address] [place] [id number] [place] [address] February, Hypertension I10 and Weight gain R63.5 [place] [address] [place] [id number] [place] [address] February, Major depressive disorder, recurrent, moderate F33.1 and Generalized anxiety disorder F41.1 [place] [id number] [place] [address] February, ADHD (attention deficit hyperactivity disorder), combined type F90.2 ; Generalized anxiety disorder F41.1 and Dysthymic disorder F34.1 [place] [id number] [place] [address] February, [place] [id number] [place] [address] February, Asthma J45.909 ; Weight gain R63.5 ; Hypertension I10 ; Rheumatoid arthritis M06.9 and Chronic pain syndrome G89.4 [place] [id number] [place] [address] Jan, ADHD (attention deficit hyperactivity disorder), combined type F90.2 ; Generalized anxiety disorder F41.1 and Dysthymic disorder F34.1 [facility] [address] [address] Dec, ADHD (attention deficit hyperactivity disorder), combined type F90.2 ; Generalized anxiety disorder F41.1 and Dysthymic disorder F34.1 [facility] [address], [place] [address] Dec, [facility] [id number] [place] [address] Nov, [facility] [address], [place] [address] Nov, [facility] [id number] [place] [address] Nov, [facility] [address], [place] [address] Nov, [facility] [id number] [place] [address] Oct, [facility] [id number] [place] [address] Oct, [facility] [address], [place] [address] Oct, [facility] [address], [place] [address] Sep, [facility] [address], [place] [address] Sep, [facility] [address], [place] [address] Sep, Agoraphobia with panic disorder F40.01 ; Attention-deficit hyperactivity disorder, combined type F90.2 and Dysthymic disorder F34.1 [facility] [address], [place] [address] Aug, [facility] [id number] [address] Aug, [facility] [id number] [place] [address] Aug, [facility] [id number] [place] [address] Aug, Dysthymic disorder F34.1 ; Generalized anxiety disorder F41.1 and ADHD (attention deficit hyperactivity disorder), combined type F90.2 [facility] [id number] [place] [address] Aug, ADHD (attention deficit hyperactivity disorder), combined type F90.2 ; Generalized anxiety disorder F41.1 and Dysthymic disorder F34.1 [facility] [id number] [place] [address] Jul, Urinary tract infection, site not specified N39.0 ; Hypotension, unspecified I95.9 and Breast cancer screening Z12.39 [facility] [id number] [place] [address] Jul, [facility] [id number] [place] [address] Jul, [facility] [id number] [place] [address] Jul, Urinary tract infection, site not specified N39.0 ; Nausea R11.0 ; Gastroenteritis K52.9 ; Renal failure N19 and Other hypotension I95.89 [facility] [id number] [place] [address] Jul, [facility] [id number] [place] [address] Jul, [facility] [id number] [place] [address] Jul, [facility] [id number] [place] [address] Jun, [facility] [address], [place] [address] Jun, Major depression in partial remission 296.25 ; Generalized anxiety disorder 300.02 and ADHD, predominantly inattentive type 314.01 [facility] [id number] [place] [address] May, [facility] [id number] [place] [address] Apr, Major depressive disorder, recurrent episode, severe, without mention of psychotic behavior 296.33 ; Agoraphobia with panic disorder 300.21 and Generalized anxiety disorder 300.[address] [address] Apr, ADHD (attention deficit hyperactivity disorder), combined type 314.01 ; Generalized anxiety disorder 300.02 and Dysthymic disorder 300.[address] [address] Apr, CAD (coronary artery disease) 414.00 ; HTN (hypertension) 401.9 and Tobacco use 305.1 [place] [id number] [place] [address] Apr, [place] [id number] [place] [address] Mar, ADHD (attention deficit hyperactivity disorder), combined type 314.01 ; Generalized anxiety disorder 300.02 ; Dysthymic disorder 300.4 ; No condition on Stow II V71.09 ; Rheumatoid arthritis 714.0 ; Incontinence 788.30 ; Irritable bowel syndrome 564.1 ; Osteoporosis 733.00 and Chronic pain 338.29 [place] [id number] [place] [address] Mar, Agoraphobia with panic disorder 300.21 and Major depressive disorder, recurrent episode, moderate 296.32 [place] [id number] [place] [address] Mar, [address] [place] [address] February, [facility] [address], [place] [address] February, Agoraphobia with panic disorder 300.21 and Major depressive disorder, recurrent episode, moderate 296.[address] [facility] [address] [place] [address] February, [facility] [address], [place] [address] Jan, [facility] [id number] [place] [address] Jan, [facility] [address], [place] [address] Dec, [facility] [address], [place] [address] Dec, [facility] [address], [place] [address] Dec, [facility] [address] [place] [address] Dec, [facility] [address], [place] [address] Dec, [facility] [address], [place] [address] Dec, [facility] [place] [facility] [address], [place] [address] Nov, [facility] [place] [facility] [id number] [place] [address] Nov, [facility] [place] [facility] [address], [place] [address] Nov, [facility] [place] [facility] [id number] [address] Nov, [facility] [place] [facility] [address] [facility] [id number] [place] [address] 17 Nov, 2014 [facility] [place] [facility] [address] [id number] [place] [address] Nov, 2014 [facility] [place] [facility] [address] [id number] [place] [address] Nov, 2014 [facility] [place] [facility] [address] [id number] [place] [address] Nov, [facility] [place] [facility] [address] [id number] [place] [address] Oct, [facility] [place] [facility] [address] [id number] [place] [address] Oct, [facility] [place] [facility] [address] [id number] [place] [address] Oct, [facility] [place] [facility] [address] [id number] [place] [address] Oct, [facility] [place] [facility] [address] [id number] [place] [address] Oct, [facility] [place] [facility] [address] [id number] [place] [address] Oct, [facility] [place] [facility] [address] [id number] [place] [address] Sep, [facility] [place] [facility] [address] [id number] [place] [address] Sep, [facility] [place] [facility] [address] [id number] [place] [address] Sep, [facility] [place] [facility] [address] [id number] [place] [address] Sep, [facility] [place] [facility] [address] [id number] [place] [address] Sep, [facility] [place] [facility] [address] [id number] [place] [address] 05 Sep, 2014 [facility] [place] [facility] [address] [id number] [place] [address] Sep, [facility] [place] [facility] [address] [id number] [place] [address] Aug, [facility] [place] [facility] [address] [id number] [place] [address] Aug, [facility] [place] [facility] [address] [id number] [place] [address] Aug, [facility] [place] [facility] [address] [id number] [place] [address] Aug, [facility] [place] [facility] [address] [id number] [place] [address] Aug, [facility] [place] [facility] [address] [id number] [place] [address] Aug, [facility] [place] [facility] [address] [id number], [place] [address] Jul, [facility] [place] [facility] [address] [id number] [place] [address] Jul, [facility] [place] [facility] [address] [id number] [place] [address] Jul, [facility] [place] [facility] [address] [id number], [place] [address] Jul, [facility] [place] [facility] [address] [id number], [place] [address] Jul, [facility] [place] [facility] [address] [id number] [place] [address] Jul, [facility] [place] [facility] [address] [id number], [place] [address] Jun, [facility] [place] [facility] [address] [id number], [place] [address] Jun, [facility] [place] [facility] [address] [id number] [place] [address] May, [facility] [address] [id number] [place] [address] May, [facility] [place] [facility] [address] [id number] [place] [address] Apr, [facility] [place] [facility] [address] [id number] [place] [address] Apr, [facility] [place] [facility] [address] [id number] [place] [address] Apr, [facility] [place] [facility] [address] [id number] [place] [address] Apr, [facility] [place] [facility] [address] [id number] [place] [address] Mar, [facility] [place] [facility] [address] [id number] [place] [address] Mar, [facility] [address] [id number] [place] [address] Mar, [facility] [place] [facility] [address] [id number] [place] [address] Mar, [facility] [address] [id number] [place] [address] February, [facility] [place] [facility] [address] [id number] [place] [address] February, [facility] [place] [facility] [address] [id number] [place] [address] February, [facility] [place] [facility] [address] [id number] [place] [address] February, [facility] [place] [facility] [address] [id number] [place] [address] February, [facility] [place] [facility] [address] [id number] [place] [address] February, [facility] [place] [facility] [address] [id number] [place] [address] Jan, [facility] [place] [facility] [address] [id number] [place] [address] Jan, [facility] [place] [facility] [address] [id number] [place] [address] Dec, [facility] [place] [facility] [address] [id number] [place] [address] Dec, [facility] [place] [facility] [address] [id number] [place] [address] Nov, [facility] [place] [facility] [address] [id number] [place] [address] Nov, [facility] [place] [facility] [address] [id number] [place] [address] Oct, [facility] [place] [facility] [address] [id number] [place] [address] Oct, [facility] [place] [facility] [address] [id number] [place] [address] Oct, [facility] [place] [facility] [address] [id number] [place] [address] Oct, [facility] [place] [facility] [address] [id number], [place] [address] Sep, [facility] [place] [facility] [address] [id number], [place] [address] Sep, [facility] [place] [facility] [address] [id number] [place] [address] Sep, [facility] [place] [facility] [address] [id number] [place] [address] Sep, [facility] [place] [facility] [address] [id number], [place] [address] Sep, [facility] [place] [facility] [address] [id number], [place] [address] Sep, [facility] [address] [id number] [place] [address] Sep, [facility] [place] [facility] [address] [facility] [id number], [place] [address] Sep, [facility] [place] [facility] [address] [facility] [id number] [place] [address] Aug, [facility] [place] [facility] [address] [id number] [place] [address] Aug, [facility] [place] [facility] [id number] [place] [address] Aug, [facility] [place] [facility] [address] [facility] [id number] [place] [address] Aug, [facility] [address], [place] [address] Aug, [facility] [place] [facility] [address] [facility] [id number], [place] [address] Aug, [facility] [place] [facility] [id number] [place] [address] Aug, [facility] [place] [facility] [id number], [place] [address] Aug, [facility] [place] [facility] [address] [facility] [id number], [place] [address] Aug, [facility] [place] [facility] [address] [facility] [id number], [place] [address] Jul, [facility] [place] [facility] [address] [id number], [place] [address] Jun, [facility] [place] [facility] [address] [facility] [id number], [place] [address] May, [facility] [place] [facility] [id number], [place] [address] May, [facility] [place] [facility] [address] [id number] [place] [address] May, [facility] [place] [facility] [address] [id number] [place] [address] Apr, [facility] [place] [facility] [address] [id number] [place] [address] Mar, [facility] [place] [facility] [address] [id number] [place] [address] February, [facility] [place] [facility] [address] [id number] [place] [address] Oct, [facility] [place] [facility] [address] [id number] [place] [address] Oct, [facility] [place] [facility] [address] [id number] [place] [address] Oct, [facility] [place] [facility] [address] [id number] [place] [address] Oct, [facility] [place] [facility] [address] [id number] [place] [address] Oct, [facility] [place] [facility] [address] [id number] [place] [address] Oct, [facility] [place] [facility] [address] [id number] [place] [address] Sep, [facility] [place] [facility] [address] [id number] [place] [address] Sep, [facility] [place] [facility] [address] [id number] [place] [address] Aug, [facility] [place] [facility] [address] [id number] [place] [address] Aug, [facility] [place] [facility] [address] [id number] [place] [address] Jul, [facility] [place] [facility] [address] [id number] [place] [address] Jul, [facility] [place] [facility] [address] [id number] [place] [address] Jul, [facility] [place] [facility] [address] [id number] [place] [address] Jul, [facility] [place] [facility] [address] [id number] [place] [address] Jul, [facility] [place] [facility] [address] [id number] [place] [address] Jul, [facility] [place] [facility] [address] [id number] [place] [address] Jul, [facility] [place] [facility] [address] [id number] [place] [address] Jul, [facility] [place] [facility] [address] [id number] [place] [address] Jun, [facility] [place] [facility] [address] [id number] [place] [address] Jun, [facility] [place] [facility] [address] [id number] [place] [address] May, [facility] [place] [facility] [address] [id number] [place] [address] Apr, [facility] [place] [facility] [address] [id number], [place] [address] Mar, [facility] [place] [facility] [address] [id number], [place] [address] Mar, [facility] [place] [facility] [address] [id number] [place] [address] Mar, [facility] [place] [facility] [address] [id number], [place] [address] Mar, [facility] [place] [facility] [address] [id number] [place] [address] Jan, [facility] [place] [facility] [address] [id number] [place] [address] 14 Nov, 2011 [facility] [address] [id number] [place] [address] Nov, [facility] [place] [facility] [address] [id number] [place] [address] Nov, [facility] [address] [id number] [place] [address] Oct, [facility] [address] [id number] [place] [address] Sep, [facility] [address] [id number] [place] [address] Sep, [facility] [address] [id number] [place] [address] Aug, [facility] [address] [id number] [place] [address] Aug, [facility] [address] [id number] [place] [address] Aug, [facility] [address] [facility] [id number] [place] [address] Aug, [facility] [address] [facility] [id number] [place] [address] Jul, [facility] [address] [id number] [place] [address] May, [facility] [address] [id number] [place] [address] Jan, [facility] [place] [facility] [address] [id number] [place] [address] Nov, [facility] [place] [facility] [address] [id number] [place] [address] Apr, [facility] [place] [facility] [address] [id number] [place] [address] Dec, [facility] [address] [facility] [id number] [place] [address] Nov, IMMUNIZATIONS No Known Immunizations SOCIAL HISTORY Never Assessed REASON FOR VISIT PLAN OF CARE VITAL SIGNS MEDICATIONS Unknown Medications RESULTS No Results PROCEDURES No Known procedures INSTRUCTIONS MEDICATIONS ADMINISTERED No Known Medications MEDICAL (GENERAL) HISTORY Type Description Date Medical History Cardiovascular [id number], non-obstructive per (01/2011) Dr. Mendoza Medical History Stress test 03/07/13-Dr. Kelly Dietrich normal Medical History Hypertension Medical History Asthma Medical History Gastrointestinal Disorder--IBS, GERD, Hx of fatty liver Medical History Hernia 1979 Medical History Cervical dysplasia 02/16-Pap LGSIL/[place]-mild dysplasia Medical History Hyperlipidemia Medical History Rheumatoid [...] injury 07/10/15-07/11/2015 Hospitalization History Symptomatic Hypokalemia/Nause-[facility]ia [facility] 05/13/16 Hospitalization History Stroke 05/03/2017 Hospitalization History stroke 08/24/2017--09/01/2017
[2019-05-22] MEDS ORDERED: LACTATED RINGERS 1,000 ML IV STA (07:24)
--- OUTSIDE RECORDS SUMMARY | 2019-05-22 07:24 | XMS REPORT ---
Author Author TEQUILA Lynn Organization [facility] [place] Address [address] [place] [address] Care Team Providers Care Medicaid Business Analyst Name Role Phone TEQUILA Lynn Unavailable PROBLEMS Type Condition ICD9-CM Code [id number] Code Onset Dates Condition Status SNOMED Code Problem Asthma J45.909 Active 728102439 Problem Rheumatoid arthritis M06.9 Active 13302458 Problem Chronic pain syndrome G89.4 Active 283466909 Problem Hypertension I10 Active 44611318 Problem Mixed hyperlipidemia E78.2 Active 493223106 Problem Arteriosclerotic coronary artery disease I25.10 Active 99429226 Problem Other insomnia G47.09 Active 028132338 Problem Hemiparesis of left nondominant side as late effect of cerebral infarction I69.354 Active 203248258 Problem Neuropathy G62.9 Active 273991390 Problem Gastroesophageal reflux disease with esophagitis K21.0 Active 960154770 Problem Irritable bowel syndrome with diarrhea K58.0 Active 622136606 Problem Panic attacks F41.0 Active 219650308 Problem Hemiplegia affecting left nondominant side G81.94 Active Problem Dysthymic disorder F34.1 Active 38059785 Problem Generalized anxiety disorder F41.1 Active 68321533 Problem Rheumatoid arthritis with rheumatoid factor of multiple sites without organ or systems involvement M05.79 Active 76606918 Problem Obstructive sleep apnea G47.33 Active 40079903 Problem Morbid (severe) obesity due to excess calories E66.01 Active 380682059 Problem ADHD (attention deficit hyperactivity disorder), combined type F90.2 Active 38598843 Problem Mild episode of recurrent major depressive disorder F33.0 Active 125565860 Problem Seasonal allergies J30.2 Active 359935819 Problem Paroxysmal atrial fibrillation I48.0 Active 018383081 Problem Chronic obstructive pulmonary disease J44.9 Active 85467710 ALLERGIES No Information ENCOUNTERS Encounter Location Date Diagnosis [facility] [place] [id number] [place] [address] May, [id number] [place] [id number] Apr, [place] [id number] [place] [address] [id number] Apr, Hypertension I10 ; Mixed hyperlipidemia E78.2 [...] infarction I69.354 and Elevated blood sugar R73.09 [place] [id number] [place] [address] [id number] Apr, Elevated blood sugar R73.09 [place] [id number] [place] [address] [id number] Apr, Thyroid disorder screening Z13.29 ; Lipid screening Z13.220 ; Urinary tract infection, site not specified N39.0 and Rheumatoid arthritis with rheumatoid factor of multiple sites without organ or systems involvement M05.79 [id number] [place] [id number] Apr, Urinary tract infection, site not specified N39.0 ; Hematuria, unspecified R31.9 ; Right lower quadrant abdominal pain R10.31 ; Lipid screening Z13.220 ; Thyroid disorder screening Z13.29 and Irritable bowel syndrome with diarrhea K58.0 [facility] [place] [id number] [place] [address] Mar, [facility] [place] [id number] [place] [address] Mar, [id number] [place] [address] [id number] Mar, [facility] [place] [address] [address] Mar, [place] [id number] [place] [address] February, Generalized anxiety disorder F41.1 and Mild episode of recurrent major depressive disorder F33.0 [place] [id number] [place] [address] Jan, [facility] [id number] [place] [address] [id number] Jan, Herpes zoster without complication B02.9 [place] [id number] [place] [address] Jan, Other insomnia G47.09 ; Hypertension I10 ; Rheumatoid arthritis M06.9 ; Mild episode of recurrent major depressive disorder F33.0 ; Breast cancer screening Z12.39 ; Arteriosclerotic coronary artery disease I25.10 ; Morbid (severe) obesity due to excess calories E66.01 and Hemiparesis of left nondominant side as late effect of cerebral infarction I69.354 [place] [id number] [place] [address] Jan, Asthma J45.909 and Other insomnia G47.09 [place] [id number] [place] [address] Jan, [place] [id number] [place] [address] Dec, Generalized anxiety disorder F41.1 and Mild episode of recurrent major depressive disorder F33.0 [place] [id number] [place] [address] Dec, [place] [id number] [place] [address] Dec, [place] [id number] [place] [address] Dec, [facility] [id number] [place] [address] [id number] Nov, Viral upper respiratory tract infection J06.9 [facility] [place] [id number] [place] [address] Nov, [facility] [place] [id number] [place] [address] Oct, [facility] [place] [id number] [place] [address] Sep, [facility] [place] [id number] [place] [address] Sep, [facility] [place] [id number] [place] [address] Sep, [facility] [place] [id number] [place] [address] Sep, Orthostatic hypotension I95.1 ; Shortness of breath R06.02 ; Right foot pain M79.671 and Morbid (severe) obesity due to excess calories E66.01 [facility] [place] [id number] [place] [address] Aug, [facility] [place] [id number] [place] [address] Aug, [facility] [place] [id number] [place] [address] Aug, [facility] [place] [id number] [place] [address] Aug, [facility] [place] [id number] [place] [address] Aug, [facility] [place] [id number] [place] [address] Jul, [facility] [place] [id number] [place] [address] Jul, [facility] [place] [id number] [place] [address] Jul, [facility] [place] [address], [place] [address] Jul, [facility] [place] [id number] [place] [address] Jul, [facility] [place] [id number] [place] [address] Jul, [facility] [address] [place] [id number] Jul, Hemiplegia affecting left nondominant side G81.94 ; Chronic obstructive pulmonary disease J44.9 and Weakness R53.1 [place] [id number] [place] [address] Jul, [facility] [address] [place] [id number] Jul, Weakness R53.1 ; Paroxysmal atrial fibrillation I48.0 and Unsteady gait R26.81 [place] [id number] [place] [address] Jul, Tobacco abuse Z72.0 [facility] [address] [place] [id number] Jun, History of acute respiratory failure Z87.09 ; Weight gain R63.5 and Tobacco abuse Z72.0 [place] [address] [address] Jun, [place] [id number] [place] [address] May, Primary insomnia F51.01 [place] [address] [address] May, Mild episode of recurrent major depressive disorder F33.0 [facility] [place] [address] [address] May, [facility] [place] [address] [address] May, Chronic obstructive pulmonary disease, unspecified COPD type J44.9 ; Primary insomnia F51.01 ; Fatigue, unspecified type R53.83 and Weight gain R63.5 [facility] [place] [id number] [place] [address] May, Thrush B37.0 [facility] [place] [id number] [place] [address] May, Mild episode of recurrent major depressive disorder F33.0 and Generalized anxiety disorder F41.1 [facility] [place] [id number] [place] [address] May, Thrush B37.0 [place] [id number] [place] [address] Apr, Cough R05 [place] [id number] [place] [address] Mar, Mild episode of recurrent major depressive disorder F33.0 [facility] [place] [id number] [place] [address] Mar, Mild episode of recurrent major depressive disorder F33.0 and Generalized anxiety disorder F41.1 [place] [id number] [place] [address] Mar, Seasonal allergies J30.2 [facility] [place] [id number] [place] [address] Mar, Seasonal allergies J30.2 [facility] [place] [id number] [place] [address] February, Generalized anxiety disorder F41.1 [facility] [id number] [place] [address] February, Cough R05 and Seasonal allergies J30.2 [facility] [place] [id number] [place] [address] February, Generalized anxiety disorder F41.1 and Mild episode of recurrent major depressive disorder F33.0 [facility] [place] [address] [address] February, Other chcf (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 ; Anxiety F41.9 ; Panic attacks F41.0 and Irritable bowel syndrome with diarrhea K58.0 [facility] [place] [id number] [address] February, [facility] [place] [id number] [place] [address] Jan, Mixed hyperlipidemia E78.2 [facility] [place] [id number] [place] [address] Jan, [facility] [place] [id number] [place] [address] Jan, [facility] [place] [id number] [place] [address] Jan, [facility] [place] [id number] [place] [address] Jan, [facility] [place] [id number] [place] [address] Dec, [facility] [place] [id number] [address] Dec, [facility] [place] [address] [address] Dec, [facility] [place] [id number] [place] [address] Nov, Dysthymic disorder F34.1 [facility] [place] [id number] [place] [address] Oct, [facility] [place] [id number] [address] Oct, [facility] [place] [id number] [place] [address] Oct, [place] [id number] [place] [address] Oct, Diarrhea, unspecified type R19.7 and Dysuria R30.0 [place] [address] [address] Oct, [place] [address] [address] Sep, [place] [address] [address] Sep, [address] [address] Sep, Anxiety F41.[address] [address] Sep, Cerebrovascular accident (CVA), unspecified mechanism I63.9 ; Mixed hyperlipidemia E78.2 ; Gastroesophageal reflux disease with esophagitis K21.0 and Anxiety F41.9 [place] [id number] [place] [address] Sep, [address] [address] Aug, Chronic obstructive pulmonary disease, unspecified J44.9 ; Asthma J45.909 ; Nausea R11.0 ; Dysthymic disorder F34.1 ; Cerebrovascular accident (CVA), unspecified mechanism I63.9 and Rheumatoid arthritis M06.9 [place] [id number] [place] [address] Aug, Nausea R11.0 ; Encounter for immunization Z23 ; Sleep apnea in adult G47.30 ; Rheumatoid arthritis involving multiple sites, unspecified rheumatoid factor presence M06.9 ; Generalized anxiety disorder F41.1 ; Dysthymic disorder F34.1 and Asthma J45.909 [id number] [place] [address] Jul, [place] [id number] [place] [address] May, ADHD (attention deficit hyperactivity disorder), combined type F90.2 ; Generalized anxiety disorder F41.1 and Persistent depressive disorder F34.1 [place] [id number] [place] [address] May, Cerebrovascular accident (CVA), unspecified mechanism I63.9 [place] [address] [address] Apr, Mixed hyperlipidemia E78.2 and Cerebrovascular accident (CVA), unspecified mechanism I63.9 [place] [address] [address] Apr, Generalized anxiety disorder F41.1 [place] [address] [address] Apr, Bronchitis J40 and Tobacco use Z72.0 [place] [address] [address] Apr, Mixed hyperlipidemia E78.2 [place] [address] [address] Apr, Other chcf (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 [place] [address] [address] Apr, [place] [id number] [place] [address] Apr, Generalized anxiety disorder F41.1 [place] [address] [address] Apr, Obstructive sleep apnea G47.33 and Hyperinsulinemia E16.1 [place] [id number] [place] [address] Apr, ADHD (attention deficit hyperactivity disorder), combined type F90.2 ; Generalized anxiety disorder F41.1 and Persistent depressive disorder F34.1 [place] [address] [address] Mar, [facility] [place] [id number] [place] [address] Mar, Generalized anxiety disorder F41.1 [facility] [place] [address], [place] [address] Mar, Tarsal tunnel syndrome of both lower extremities G57.53 [facility] [place] [id number] [place] [address] February, [facility] [place] [id number] [place] [address] February, [facility] [place] [id number] [place] [address] February, Asthma J45.909 [facility] [place] [id number] [place] [address] February, Generalized anxiety disorder F41.1 [facility] [place] [id number] [place] [address] February, Hypoxemia R09.02 ; Hyperglycemia R73.9 ; Rheumatoid arthritis M06.9 and Generalized anxiety disorder F41.1 [facility] [place] [id number] [place] [address] February, [facility] [place] [id number] [place] [address] Jan, Chronic obstructive pulmonary disease, unspecified J44.9 [facility] [place] [id number] [place] [address] Jan, Chronic pain syndrome G89.4 [facility] [place] [id number] [place] [address] Jan, Hypoxemia R09.02 [facility] [place] [id number] [place] [address] Jan, [facility] [place] [id number] [place] [address] Jan, Chronic obstructive pulmonary disease, unspecified J44.9 ; Hypoxemia R09.02 ; Other insomnia G47.09 and Left anterior shoulder pain M25.512 [facility] [place] [id number] [place] [address] Jan, Numbness in feet R20.0 and Neuropathy G62.9 [place] [address] [address] Jan, [place] [address] [address] Dec, Acute pain of left shoulder M25.512 [place] [id number] [place] [address] Dec, Acute pain of left shoulder M25.512 [place] [id number] [place] [address] Dec, Generalized anxiety disorder F41.1 [place] [id number] [place] [address] Dec, Generalized anxiety disorder F41.1 [place] [id number] [place] [address] Nov, ADHD (attention deficit hyperactivity disorder), combined type F90.2 ; Generalized anxiety disorder F41.1 and Persistent depressive disorder F34.1 [place] [id number] [place] [address] Nov, Acute pain of left shoulder M25.512 [place] [id number] [place] [address] Nov, ADHD (attention deficit hyperactivity disorder), combined type F90.2 ; Generalized anxiety disorder F41.1 and Persistent depressive disorder F34.1 [place] [id number] [place] [address] 17 Feb, 2017 Chronic pain syndrome G89.4 [facility] [place] [address] [address] Nov, Chronic pain syndrome G89.4 [facility] [place] [id number] [place] [address] Nov, Acute pain of left shoulder M25.512 [facility] [place] [id number] [place] [address] Nov, Generalized anxiety disorder F41.1 [facility] [place] [id number] [place] [address] Nov, Acute pain of left shoulder M25.512 [place] [id number] [place] [address] Nov, ADHD (attention deficit hyperactivity disorder), combined type F90.2 ; Generalized anxiety disorder F41.1 and Persistent depressive disorder F34.1 [place] [id number] [place] [address] Nov, Acute pain of left shoulder M25.512 ; Generalized anxiety disorder F41.1 ; Chronic pain syndrome G89.4 ; Hyperinsulinemia E16.1 ; Pain of left foot M79.672 and Pain in right foot M79.671 [place] [address], [place] [address] Oct, ADHD (attention deficit hyperactivity disorder), combined type F90.2 ; Generalized anxiety disorder F41.1 and Dysthymic disorder F34.1 [place] [address] [address] Sep, [place] [id number] [place] [address] Sep, [facility] [place] [address], [place] [address] Sep, Routine gynecological examination V72.31 ; Cervical cancer screening Z12.4 ; Breast cancer screening Z12.39 ; Colon cancer screening Z12.11 ; Hypokalemia E87.6 ; Herpes simplex type 1 infection B00.9 and Abscess of right axilla L02.411 [place] [id number] [place] [address] Sep, [place] [id number] [place] [address] Sep, ADHD (attention deficit hyperactivity disorder), combined type F90.2 ; Generalized anxiety disorder F41.1 and Dysthymic disorder F34.1 [place] [id number] [place] [address] Aug, [place] [address] [address] Aug, [place] [address] [address] Aug, Generalized anxiety disorder F41.1 [place] [id number] [place] [address] Aug, ADHD (attention deficit hyperactivity disorder), combined type F90.2 ; Generalized anxiety disorder F41.1 and Dysthymic disorder F34.1 [place] [id number] [place] [address] Jul, Chronic pain syndrome G89.4 ; Hypertension I10 ; Hypokalemia E87.6 ; Asthma J45.909 and Nausea R11.0 [place] [id number] [place] [address] Jul, [place] [id number] [place] [address] Jul, Asthma J45.909 [place] [id number] [place] [address] Jul, ADHD (attention deficit hyperactivity disorder), combined type F90.2 ; Generalized anxiety disorder F41.1 and Dysthymic disorder F34.1 [place] [address] [address] Jul, [place] [address] [address] Jul, Hypertension I10 ; Arteriosclerotic coronary artery disease I25.10 ; Mixed hyperlipidemia E78.2 ; 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 and Hyperglycemia R73.9 [place] [address] [address] 16 Jun, 2016 Hypokalemia E87.6 and Hyperglycemia R73.9 [place] [address] [address] 14 Jun, 2016 [place] [address] [address] Jun, Abnormal kidney function N28.9 [place] [address] [address] Jun, [place] [address] [address] Jun, ADHD (attention deficit hyperactivity disorder), combined type F90.2 ; Generalized anxiety disorder F41.1 and Dysthymic disorder F34.1 [place] [address] [address] Jun, Generalized anxiety disorder F41.1 and Dysthymic disorder F34.1 [place] [address] [address] Jun, Hypokalemia E87.6 [place] [address] [address] May, Hypokalemia E87.6 ; Vertigo R42 and Hyperinsulinemia E16.1 [place] [address] [address] May, [place] [address] [address] May, Abnormal kidney function N28.9 ; Hyperinsulinemia E16.1 and Nausea R11.0 [place] [address] [address] May, Hypokalemia E87.6 ; Nausea R11.0 ; Epigastric pain R10.13 ; Dehydration E86.0 ; Diaphoresis R61 and Right arm pain M79.601 [place] [address] [address] May, [place] [address] [address] May, Hypokalemia E87.6 [place] [address] [address] May, Hypokalemia E87.6 [place] [address] [address] Apr, [place] [address] [address] Apr, ADHD (attention deficit hyperactivity disorder), combined type F90.2 ; Generalized anxiety disorder F41.1 and Dysthymic disorder F34.1 [place] [address] [address] [id number] [place] [address] Apr, Right arm pain M79.601 and Hyperinsulinemia E16.1 [place] [id number] [place] [address] Mar, [place] [address] [address] Mar, [place] [address] [address] Mar, Hyperinsulinemia E16.1 ; Hyperlipidemia, unspecified hyperlipidemia type E78.5 ; Central venous catheter in place Z78.9 ; Generalized anxiety disorder F41.1 and Urinary tract infection, site not specified N39.0 [place] [address] [address] Mar, ADHD (attention deficit hyperactivity disorder), combined type F90.2 ; Generalized anxiety disorder F41.1 and Dysthymic disorder F34.1 [place] [address], [place] [address] February, ADHD (attention deficit hyperactivity disorder), combined type F90.2 ; Generalized anxiety disorder F41.1 and Dysthymic disorder F34.1 [place] [id number] [place] [address] February, [place] [id number] [place] [address] February, [place] [id number] [place] [address] February, Hypertension I10 and Weight gain R63.5 [place] [id number] [place] [address] February, Major depressive disorder, recurrent, moderate F33.1 and Generalized anxiety disorder F41.1 [place] [id number] [place] [address] February, ADHD (attention deficit hyperactivity disorder), combined type F90.2 ; Generalized anxiety disorder F41.1 and Dysthymic disorder F34.1 [place] [id number] [place] [address] February, [place] [id number] [place] [address] February, Asthma J45.909 ; Weight gain R63.5 ; Hypertension I10 ; Rheumatoid arthritis M06.9 and Chronic pain syndrome G89.4 [place] [id number] [place] [address] Jan, ADHD (attention deficit hyperactivity disorder), combined type F90.2 ; Generalized anxiety disorder F41.1 and Dysthymic disorder F34.1 [facility] [place] [address], [place] [address] Dec, ADHD (attention deficit hyperactivity disorder), combined type F90.2 ; Generalized anxiety disorder F41.1 and Dysthymic disorder F34.1 [facility] [place] [address], [place] [address] Dec, [facility] [place] [id number] [place] [address] Nov, [facility] [place] [address], [place] [address] Nov, [facility] [place] [id number] [place] [address] Nov, [facility] [place] [address], [place] [address] Nov, [facility] [place] [id number] [place] [address] Oct, [facility] [place] [id number] [place] [address] Oct, [facility] [place] [address], [place] [address] Oct, [facility] [place] [address], [place] [address] Sep, [facility] [place] [address], [place] [address] Sep, [facility] [place] [address], [place] [address] Sep, Agoraphobia with panic disorder F40.01 ; Attention-deficit hyperactivity disorder, combined type F90.2 and Dysthymic disorder F34.1 [facility] [place] [address], [place] [address] Aug, [facility] [place] [id number], [place] [address] Aug, [facility] [place] [id number] [place] [address] Aug, [facility] [place] [id number] [place] [address] Aug, Dysthymic disorder F34.1 ; Generalized anxiety disorder F41.1 and ADHD (attention deficit hyperactivity disorder), combined type F90.2 [facility] [place] [id number] [place] [address] Aug, ADHD (attention deficit hyperactivity disorder), combined type F90.2 ; Generalized anxiety disorder F41.1 and Dysthymic disorder F34.1 [facility] [place] [id number] [place] [address] Jul, Urinary tract infection, site not specified N39.0 ; Hypotension, unspecified I95.9 and Breast cancer screening Z12.39 [facility] [place] [id number] [place] [address] Jul, [facility] [place] [id number] [place] [address] Jul, [facility] [place] [id number] [place] [address] Jul, Urinary tract infection, site not specified N39.0 ; Nausea R11.0 ; Gastroenteritis K52.9 ; Renal failure N19 and Other hypotension I95.89 [facility] [place] [id number] [place] [address] Jul, [facility] [place] [id number] [place] [address] Jul, [facility] [place] [id number] [place] [address] Jul, [facility] [place] [id number] [place] [address] Jun, [facility] [place] [address], [place] [address] Jun, Major depression in partial remission 296.25 ; Generalized anxiety disorder 300.02 and ADHD, predominantly inattentive type 314.01 [facility] [place] [id number] [place] [address] May, [facility] [place] [id number] [place] [address] Apr, Major depressive disorder, recurrent episode, severe, without mention of psychotic behavior 296.33 ; Agoraphobia with panic disorder 300.21 and Generalized anxiety disorder 300.[address] [address] Apr, ADHD (attention deficit hyperactivity disorder), combined type 314.01 ; Generalized anxiety disorder 300.02 and Dysthymic disorder 300.[address] [address] Apr, CAD (coronary artery disease) 414.00 ; HTN (hypertension) 401.9 and Tobacco use 305.1 [place] [id number] [place] [address] Apr, [place] [id number] [place] [address] Mar, ADHD (attention deficit hyperactivity disorder), combined type 314.01 ; Generalized anxiety disorder 300.02 ; Dysthymic disorder 300.4 ; No condition on [place] V71.09 ; Rheumatoid arthritis 714.0 ; Incontinence 788.30 ; Irritable bowel syndrome 564.1 ; Osteoporosis 733.00 and Chronic pain 338.29 [place] [id number] [place] [address] Mar, Agoraphobia with panic disorder 300.21 and Major depressive disorder, recurrent episode, moderate 296.32 [place] [id number] [place] [address] Mar, [address] [place] [address] February, [facility] [address], [place] [address] February, Agoraphobia with panic disorder 300.21 and Major depressive disorder, recurrent episode, moderate 296.32 [facility] [address] [place] [address] February, [facility] [address], [place] [address] Jan, [facility] [id number] [address] Jan, [facility] [address], [place] [address] Dec, [facility] [address], [place] [address] Dec, [facility] [address], [place] [address] Dec, [facility] [address] [address] Dec, [facility] [address], [place] [address] Dec, [facility] [address], [place] [address] Dec, [facility] [place] [facility] [address], [place] [address] Nov, [facility] [place] [facility] [id number] [address] Nov, [facility] [place] [facility] [address], [place] [address] Nov, [facility] [place] [facility] [id number] [address] Nov, [facility] [place] [facility] [address] [facility] [id number] [place] [address] 17 Nov, 2014 [facility] [place] [facility] [address] [id number] [place] [address] Nov, 2014 [facility] [place] [facility] [address] [id number] [place] [address] Nov, 2014 [facility] [place] [facility] [address] [id number] [place] [address] Nov, [facility] [place] [facility] [address] [id number] [place] [address] Oct, [facility] [place] [facility] [address] [id number] [place] [address] Oct, [facility] [place] [facility] [address] [id number] [place] [address] Oct, [facility] [place] [facility] [address] [id number] [place] [address] Oct, [facility] [place] [facility] [address] [id number] [place] [address] Oct, [facility] [place] [facility] [address] [id number] [place] [address] Oct, [facility] [place] [facility] [address] [id number] [place] [address] Sep, [facility] [place] [facility] [address] [id number] [place] [address] Sep, [facility] [place] [facility] [address] [id number] [place] [address] Sep, [facility] [place] [facility] [address] [id number] [place] [address] Sep, [facility] [place] [facility] [address] [id number] [place] [address] Sep, [facility] [place] [facility] [address] [id number] [place] [address] 05 Sep, 2014 [facility] [place] [facility] [address] [id number] [place] [address] Sep, [facility] [place] [facility] [address] [id number] [place] [address] Aug, [facility] [place] [facility] [address] [id number] [place] [address] Aug, [facility] [place] [facility] [address] [id number] [place] [address] Aug, [facility] [place] [facility] [address] [id number] [place] [address] Aug, [facility] [place] [facility] [address] [id number] [place] [address] Aug, [facility] [place] [facility] [address] [id number] [place] [address] Aug, [facility] [place] [facility] [address] [id number], [place] [address] Jul, [facility] [place] [facility] [address] [id number] [place] [address] Jul, [facility] [place] [facility] [address] [id number] [place] [address] Jul, [facility] [place] [facility] [address] [id number][place] [address] Jul, [facility] [place] [facility] [address] [id number], [place] [address] Jul, [facility] [place] [facility] [address] [id number] [place] [address] Jul, [facility] [place] [facility] [address] [id number], [place] [address] Jun, [facility] [place] [facility] [address] [id number], [place] [address] Jun, [facility] [place] [facility] [address] [id number] [place] [address] May, [facility] [address] [id number] [place] [address] May, [facility] [place] [facility] [address] [id number] [place] [address] Apr, [facility] [place] [facility] [address] [id number] [place] [address] Apr, [facility] [place] [facility] [address] [id number] [place] [address] Apr, [facility] [place] [facility] [address] [id number] [place] [address] Apr, [facility] [place] [facility] [address] [id number] [place] [address] Mar, [facility] [place] [facility] [address] [id number] [place] [address] Mar, [facility] [address] [id number] [place] [address] Mar, [facility] [place] [facility] [address] [id number] [place] [address] Mar, [facility] [address] [id number] [place] [address] February, [facility] [place] [facility] [address] [id number] [place] [address] February, [facility] [place] [facility] [address] [id number] [place] [address] February, [facility] [place] [facility] [address] [id number] [place] [address] February, [facility] [place] [facility] [address] [id number] [place] [address] February, [facility] [place] [facility] [address] [id number] [place] [address] February, [facility] [place] [facility] [address] [id number] [place] [address] Jan, [facility] [place] [facility] [address] [id number] [place] [address] Jan, [facility] [place] [facility] [address] [id number] [place] [address] Dec, [facility] [place] [facility] [address] [id number] [place] [address] Dec, [facility] [place] [facility] [address] [id number] [place] [address] Nov, [facility] [place] [facility] [address] [id number] [place] [address] Nov, [facility] [place] [facility] [address] [id number] [place] [address] Oct, [facility] [place] [facility] [address] [id number] [place] [address] Oct, [facility] [place] [facility] [address] [id number] [place] [address] Oct, [facility] [place] [facility] [address] [id number] [place] [address] Oct, [facility] [place] [facility] [address] [id number], [place] [address] Sep, [facility] [place] [facility] [address] [id number], [place] [address] Sep, [facility] [place] [facility] [address] [id number] [place] [address] Sep, [facility] [place] [facility] [address] [id number] [place] [address] Sep, [facility] [place] [facility] [address] [id number], [place] [address] Sep, [facility] [place] [facility] [address] [id number], [place] [address] Sep, [facility] [address] [id number] [place] [address] Sep, [facility] [place] [facility] [address] [facility] [id number], [place] [address] Sep, [facility] [place] [facility] [address] [facility] [id number] [place] [address] Aug, [facility] [place] [facility] [address] [id number] [place] [address] Aug, [facility] [place] [facility] [id number] [address] Aug, [facility] [place] [facility] [address] [facility] [id number] [place] [address] Aug, [facility] [address] [address] Aug, [facility] [place] [facility] [address] [facility] [id number], [place] [address] Aug, [facility] [place] [facility] [id number] [address] Aug, [facility] [place] [facility] [id number] [address] Aug, [facility] [place] [facility] [address] [facility] [id number], [place] [address] Aug, [facility] [place] [facility] [address] [facility] [id number], [place] [address] Jul, [facility] [place] [facility] [address] [id number], [place] [address] Jun, [facility] [place] [facility] [address] [facility] [id number], [place] [address] May, [facility] [place] [facility] [id number] [address] May, [facility] [place] [facility] [address] [id number] [place] [address] May, [facility] [place] [facility] [address] [id number] [place] [address] Apr, [facility] [place] [facility] [address] [id number] [place] [address] Mar, [facility] [place] [facility] [address] [id number] [place] [address] February, [facility] [place] [facility] [address] [id number] [place] [address] Oct, [facility] [place] [facility] [address] [id number] [place] [address] Oct, [facility] [place] [facility] [address] [id number] [place] [address] Oct, [facility] [place] [facility] [address] [id number] [place] [address] Oct, [facility] [place] [facility] [address] [id number] [place] [address] Oct, [facility] [place] [facility] [address] [id number] [place] [address] Oct, [facility] [place] [facility] [address] [id number] [place] [address] Sep, [facility] [place] [facility] [address] [id number] [place] [address] Sep, [facility] [place] [facility] [address] [id number] [place] [address] Aug, [facility] [place] [facility] [address] [id number] [place] [address] Aug, [facility] [place] [facility] [address] [id number] [place] [address] Jul, [facility] [place] [facility] [address] [id number] [place] [address] Jul, [facility] [place] [facility] [address] [id number] [place] [address] Jul, [facility] [place] [facility] [address] [id number] [place] [address] Jul, [facility] [place] [facility] [address] [id number] [place] [address] Jul, [facility] [place] [facility] [address] [id number] [place] [address] Jul, [facility] [place] [facility] [address] [id number] [place] [address] Jul, [facility] [place] [facility] [address] [id number] [place] [address] Jul, [facility] [place] [facility] [address] [id number] [place] [address] Jun, [facility] [place] [facility] [address] [id number] [place] [address] Jun, [facility] [place] [facility] [address] [id number] [place] [address] May, [facility] [place] [facility] [address] [id number] [place] [address] Apr, [facility] [place] [facility] [address] [id number], [place] [address] Mar, [facility] [place] [facility] [address] [id number], [place] [address] Mar, [facility] [place] [facility] [address] [id number] [place] [address] Mar, [facility] [place] [facility] [address] [id number], [place] [address] Mar, [facility] [place] [facility] [address] [id number] [place] [address] Jan, [facility] [place] [facility] [address] [id number] [place] [address] 14 Nov, 2011 [facility] [address] [id number] [place] [address] Nov, [facility] [place] [facility] [address] [id number] [place] [address] Nov, [facility] [address] [id number] [place] [address] Oct, [facility] [address] [id number] [place] [address] Sep, [facility] [address] [id number] [place] [address] Sep, [facility] [address] [id number] [place] [address] Aug, [facility] [address] [id number] [place] [address] Aug, [facility] [address] [id number] [place] [address] Aug, [facility] [address] [facility] [id number] [place] [address] Aug, [facility] [address] [facility] [id number] [place] [address] Jul, [facility] [address] [id number] [place] [address] May, [facility] [address] [id number] [place] [address] Jan, [facility] [place] [facility] [address] [id number] [place] [address] Nov, [facility] [place] [facility] [address] [id number] [place] [address] Apr, [facility] [place] [facility] [address] [id number] [place] [address] Dec, [facility] [place] [address] [facility] [id number] [place] [address] Nov, IMMUNIZATIONS No Known Immunizations SOCIAL HISTORY Never Assessed REASON FOR VISIT PLAN OF CARE VITAL SIGNS MEDICATIONS Unknown Medications RESULTS No Results PROCEDURES No Known procedures INSTRUCTIONS MEDICATIONS ADMINISTERED No Known Medications MEDICAL (GENERAL) HISTORY Type Description Date Medical History Cardiovascular [id number], non-obstructive per (01/2011) Dr. Mendoza Medical History Stress test 03/07/13-Dr. Kelly Dietrich normal Medical History Hypertension Medical History Asthma Medical History Gastrointestinal Disorder--IBS, GERD, Hx of fatty liver Medical History Hernia 1979 Medical History Cervical dysplasia 02/16-Pap LGSIL/[place]-mild dysplasia Medical History Hyperlipidemia Medical History Rheumatoid [...] Kidney injury 07/10/15-07/11/2015 Hospitalization History Symptomatic Hypokalemia/Nause-[facility]ia [facility] 05/13/16 Hospitalization History Stroke 05/03/2017 Hospitalization History stroke 08/24/2017--09/01/2017
--- OUTSIDE RECORDS SUMMARY | 2019-05-22 07:25 | XMS REPORT ---
Author Author LORI SNOWDEN [facility] Address [address] [place] [address] Care Team Providers Care Bar Helper Name Role Phone LORI SNOWDEN Unavailable PROBLEMS Type Condition ICD9-CM Code KER01-KU Code Onset Dates Condition Status SNOMED Code Problem Morbid (severe) obesity due to excess calories E66.01 Active 052448928 Problem ADHD (attention deficit hyperactivity disorder), combined type F90.2 Active 18739582 Problem Generalized anxiety disorder F41.1 Active 55979238 Problem Hypertension I10 Active 85787561 Problem Asthma J45.909 Active 106370851 Problem Chronic pain syndrome G89.4 Active 888902032 Problem Rheumatoid arthritis M06.9 Active 43906536 Problem Irritable bowel syndrome with diarrhea K58.0 Active 430525137 Problem Anxiety F41.9 Active 20977539 Problem Hemiparesis of left nondominant side as late effect of cerebral infarction I69.354 Active 676937315 Problem Other insomnia G47.09 Active 140547816 Problem Neuropathy G62.9 Active 749724257 Problem 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 Active 216677837 Problem Obstructive sleep apnea G47.33 Active 44879807 Problem Dysthymic disorder F34.1 Active 80169427 Problem Cerebrovascular accident (CVA), unspecified mechanism I63.9 Active 022515084 Problem Gastroesophageal reflux disease with esophagitis K21.0 Active 512285257 Problem Sleep apnea in adult G47.30 Active 79850943 Problem Panic attacks F41.0 Active 535782364 Problem Mild episode of recurrent major depressive disorder F33.0 Active 810558791 Problem Seasonal allergies J30.2 Active 251772629 Problem Hemiplegia affecting left nondominant side G81.94 Active Problem Arteriosclerotic coronary artery disease I25.10 Active 28024299 Problem Rheumatoid arthritis with rheumatoid factor of multiple sites without organ or systems involvement M05.79 Active 68781584 Problem Mixed hyperlipidemia E78.2 Active 981511361 Problem Hyperinsulinemia E16.1 Active 21561819 Problem Primary insomnia F51.01 Active 9421319 Problem Paroxysmal atrial fibrillation I48.0 Active 263771955 Problem Unsteady gait R26.81 Active 94910690 Problem Chronic obstructive pulmonary disease J44.9 Active 42087687 ALLERGIES No Information ENCOUNTERS Encounter Location Date Diagnosis [facility] [address] [address] May, [facility] [id number] [place] [address] Apr, [place] [id number] [place] [id number] Apr, [place] [id number] [place] [id number] Apr, Thyroid disorder screening Z13.29 ; Lipid screening Z13.220 ; Urinary tract infection, site not specified N39.0 and Rheumatoid arthritis with rheumatoid factor of multiple sites without organ or systems involvement M05.79 [facility] [id number] [id number] Apr, Urinary tract infection, site not specified N39.0 ; Hematuria, unspecified R31.9 ; Right lower quadrant abdominal pain R10.31 ; Lipid screening Z13.220 ; Thyroid disorder screening Z13.29 and Irritable bowel syndrome with diarrhea K58.0 [place] [address] [address] Mar, [facility] [address] [place] [address] Mar, [facility] [address] [id number] Mar, [place] [id number] [place] [address] Mar, [facility] [address] [address] February, Generalized anxiety disorder F41.1 and Mild episode of recurrent major depressive disorder F33.0 [facility] [address] [address] Jan, [facility] [id number] [id number] Jan, Herpes zoster without complication B02.9 [facility] [address] [place] [address] Jan, Other insomnia G47.09 ; Hypertension I10 ; Rheumatoid arthritis M06.9 ; Mild episode of recurrent major depressive disorder F33.0 ; Breast cancer screening Z12.39 ; Arteriosclerotic coronary artery disease I25.10 ; Morbid (severe) obesity due to excess calories E66.01 and Hemiparesis of left nondominant side as late effect of cerebral infarction I69.354 [place] [address] [place] [address] Jan, Asthma J45.909 and Other insomnia G47.09 [place] [id number] [place] [address] Jan, [place] [id number] [place] [address] Dec, Generalized anxiety disorder F41.1 and Mild episode of recurrent major depressive disorder F33.0 [place] [address] [place] [address] Dec, [place] [id number] [place] [address] Dec, [place] [address] [address] Dec, [facility] [address] [id number] [id number] Nov, Viral upper respiratory tract infection J06.9 [place] [address] [place] [address] Nov, [place] [id number] [place] [address] Oct, [facility] [id number] [place] [address] Sep, [facility] [id number] [place] [address] Sep, [facility] [id number] [place] [address] Sep, [facility] [id number] [place] [address] Sep, Orthostatic hypotension I95.1 ; Shortness of breath R06.02 ; Right foot pain M79.671 and Morbid (severe) obesity due to excess calories E66.01 [facility] [id number] [place] [address] Aug, [facility] [id number] [place] [address] Aug, [facility] [id number] [place] [address] Aug, [facility] [id number] [place] [address] Aug, [facility] [id number] [place] [address] Aug, [facility] [id number] [place] [address] Jul, [facility] [id number] [place] [address] Jul, [facility] [id number] [place] [address] Jul, [facility] [id number] [place] [address] Jul, [facility] [id number] [place] [address] Jul, [place] [address] [address] Jul, [facility] [address] [place] [id number] Jul, Hemiplegia affecting left nondominant side G81.94 ; Chronic obstructive pulmonary disease J44.9 and Weakness R53.1 [place] [address] [place] [address] Jul, [facility] [address] [place] [id number] Jul, Weakness R53.1 ; Paroxysmal atrial fibrillation I48.0 and Unsteady gait R26.81 [place] [id number] [place] [address] Jul, Tobacco abuse Z72.0 [facility] [address] [place] [id number] Jun, History of acute respiratory failure Z87.09 ; Weight gain R63.5 and Tobacco abuse Z72.0 [place] [address] [place] [address] Jun, [place] [id number] [place] [address] May, Primary insomnia F51.01 [place] [address] [address] May, Mild episode of recurrent major depressive disorder F33.0 [place] [address] [place] [address] May, [place] [address] [place] [address] May, Chronic obstructive pulmonary disease, unspecified COPD type J44.9 ; Primary insomnia F51.01 ; Fatigue, unspecified type R53.83 and Weight gain R63.5 [place] [address] [address] May, Thrush B37.0 [place] [address] [address] May, Mild episode of recurrent major depressive disorder F33.0 and Generalized anxiety disorder F41.1 [facility] [address] [place] [address] May, Thrush B37.0 [place] [id number] [place] [address] Apr, Cough R05 [facility] [id number] [place] [address] Mar, Mild episode of recurrent major depressive disorder F33.0 [place] [id number] [place] [address] Mar, Mild episode of recurrent major depressive disorder F33.0 and Generalized anxiety disorder F41.1 [place] [id number] [place] [address] Mar, Seasonal allergies J30.2 [place] [id number] [place] [address] Mar, Seasonal allergies J30.2 [place] [id number] [place] [address] February, Generalized anxiety disorder F41.1 [facility] [address] [place] [address] February, Cough R05 and Seasonal allergies J30.2 [facility] [id number] [place] [address] February, Generalized anxiety disorder F41.1 and Mild episode of recurrent major depressive disorder F33.0 [place] [address] [place] [address] February, 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 ; Anxiety F41.9 ; Panic attacks F41.0 and Irritable bowel syndrome with diarrhea K58.0 [facility] [address] [address] February, [facility] [id number] [place] [address] Jan, Mixed hyperlipidemia E78.2 [facility] [id number] [place] [address] Jan, [facility] [id number] [place] [address] Jan, [facility] [id number] [place] [address], [place] [address] Jan, [facility] [id number] [place] [address], [place] [address] Jan, [facility] [id number] [place] [address], [place] [address] Dec, [facility] [id number] [place] [address] Dec, [facility] [id number] [place] [address] Dec, [facility] [id number] [place] [address] Nov, Dysthymic disorder F34.1 [facility] [address] [place] [address] Oct, [facility] [address] [place] [address] Oct, [facility] [id number] [place] [address] Oct, [facility] [id number] [place] [address] Oct, Diarrhea, unspecified type R19.7 and Dysuria R30.0 [facility] [id number] [place] [address] Oct, [facility] [address] [address] Sep, [facility] [id number] [place] [address] Sep, [place] [id number] [place] [address] Sep, Anxiety F41.9 [place] [id number] [place] [address] Sep, Cerebrovascular accident (CVA), unspecified mechanism I63.9 ; Mixed hyperlipidemia E78.2 ; Gastroesophageal reflux disease with esophagitis K21.0 and Anxiety F41.9 [place] [address] [place] [address] Sep, [place] [address] [place] [address] Aug, Chronic obstructive pulmonary disease, unspecified J44.9 ; Asthma J45.909 ; Nausea R11.0 ; Dysthymic disorder F34.1 ; Cerebrovascular accident (CVA), unspecified mechanism I63.9 and Rheumatoid arthritis M06.9 [place] [id number] [place] [address] Aug, Nausea R11.0 ; Encounter for immunization Z23 ; Sleep apnea in adult G47.30 ; Rheumatoid arthritis involving multiple sites, unspecified rheumatoid factor presence M06.9 ; Generalized anxiety disorder F41.1 ; Dysthymic disorder F34.1 and Asthma J45.909 [place] [address] [place] [address] Jul, [place] [id number] [place] [address] May, ADHD (attention deficit hyperactivity disorder), combined type F90.2 ; Generalized anxiety disorder F41.1 and Persistent depressive disorder F34.1 [place] [id number] [place] [address] May, Cerebrovascular accident (CVA), unspecified mechanism I63.9 [place] [address] [address] Apr, Mixed hyperlipidemia E78.2 and Cerebrovascular accident (CVA), unspecified mechanism I63.9 [place] [id number] [place] [address] Apr, Generalized anxiety disorder F41.1 [place] [address] [address] Apr, Bronchitis J40 and Tobacco use Z72.0 [place] [address] [address] Apr, Mixed hyperlipidemia E78.2 [place] [address] [address] Apr, 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 [place] [address] [address] Apr, [place] [address] [address] Apr, Generalized anxiety disorder F41.1 [place] [address] [address] Apr, Obstructive sleep apnea G47.33 and Hyperinsulinemia E16.1 [place] [id number] [place] [address] Apr, ADHD (attention deficit hyperactivity disorder), combined type F90.2 ; Generalized anxiety disorder F41.1 and Persistent depressive disorder F34.1 [place] [id number] [place] [address] Mar, [place] [id number] [place] [address] Mar, Generalized anxiety disorder F41.1 [place] [address] [place] [address] Mar, Tarsal tunnel syndrome of both lower extremities G57.53 [facility] [address] [place] [address] February, [facility] [id number] [place] [address] February, [place] [address] [place] [address] February, Asthma J45.909 [place] [address] [place] [address] February, Generalized anxiety disorder F41.1 [place] [address] [place] [address] February, Hypoxemia R09.02 ; Hyperglycemia R73.9 ; Rheumatoid arthritis M06.9 and Generalized anxiety disorder F41.1 [place] [address] [place] [address] February, [place] [address] [place] [address] Jan, Chronic obstructive pulmonary disease, unspecified J44.9 [place] [address] [place] [address] Jan, Chronic pain syndrome G89.4 [place] [address] [place] [address] Jan, Hypoxemia R09.02 [place] [address] [place] [address] Jan, [place] [address] [place] [address] Jan, Chronic obstructive pulmonary disease, unspecified J44.9 ; Hypoxemia R09.02 ; Other insomnia G47.09 and Left anterior shoulder pain M25.512 [place] [address] [place] [address] Jan, Numbness in feet R20.0 and Neuropathy G62.9 [facility] [id number] [place] [address] Jan, [facility] [id number] [place] [address] Dec, Acute pain of left shoulder M25.512 [facility] [id number] [place] [address] Dec, Acute pain of left shoulder M25.512 [facility] [id number] [place] [address] Dec, Generalized anxiety disorder F41.1 [place] [id number] [place] [address] Dec, Generalized anxiety disorder F41.1 [place] [address] [place] [address] Nov, ADHD (attention deficit hyperactivity disorder), combined type F90.2 ; Generalized anxiety disorder F41.1 and Persistent depressive disorder F34.1 [place] [address] [place] [address] Nov, Acute pain of left shoulder M25.512 [facility] [address] [place] [address] Nov, ADHD (attention deficit hyperactivity disorder), combined type F90.2 ; Generalized anxiety disorder F41.1 and Persistent depressive disorder F34.1 [facility] [address] [place] [address] Nov, Chronic pain syndrome G89.4 [facility] [address] [place] [address] 13 Nov, 2016 Chronic pain syndrome G89.4 [facility] [address] [place] [address] 08 Nov, 2016 Acute pain of left shoulder M25.512 [facility] [address] [address] Nov, Generalized anxiety disorder F41.1 [place] [address] [place] [address] Nov, Acute pain of left shoulder M25.512 [place] [id number] [place] [address] Nov, ADHD (attention deficit hyperactivity disorder), combined type F90.2 ; Generalized anxiety disorder F41.1 and Persistent depressive disorder F34.1 [place] [address] [place] [address] Nov, Acute pain of left shoulder M25.512 ; Generalized anxiety disorder F41.1 ; Chronic pain syndrome G89.4 ; Hyperinsulinemia E16.1 ; Pain of left foot M79.672 and Pain in right foot M79.671 [place] [address] [place] [address] Oct, ADHD (attention deficit hyperactivity disorder), combined type F90.2 ; Generalized anxiety disorder F41.1 and Dysthymic disorder F34.1 [place] [address] [place] [address] Sep, [place] [address] [address] Sep, [place] [address] [place] [address] Sep, Routine gynecological examination V72.31 ; Cervical cancer screening Z12.4 ; Breast cancer screening Z12.39 ; Colon cancer screening Z12.11 ; Hypokalemia E87.6 ; Herpes simplex type 1 infection B00.9 and Abscess of right axilla L02.411 [place] [address] [place] [address] Sep, [place] [id number] [place] [address] Sep, ADHD (attention deficit hyperactivity disorder), combined type F90.2 ; Generalized anxiety disorder F41.1 and Dysthymic disorder F34.1 [place] [id number] [place] [address] Aug, [place] [address] [address] Aug, [place] [id number] [place] [address] Aug, Generalized anxiety disorder F41.1 [place] [address] [address] Aug, ADHD (attention deficit hyperactivity disorder), combined type F90.2 ; Generalized anxiety disorder F41.1 and Dysthymic disorder F34.1 [place] [address] [address] Jul, Chronic pain syndrome G89.4 ; Hypertension I10 ; Hypokalemia E87.6 ; Asthma J45.909 and Nausea R11.0 [place] [id number] [place] [address] Jul, [place] [id number] [place] [address] Jul, Asthma J45.909 [place] [id number] [place] [address] Jul, ADHD (attention deficit hyperactivity disorder), combined type F90.2 ; Generalized anxiety disorder F41.1 and Dysthymic disorder F34.1 [place] [id number] [place] [address] Jul, [place] [id number] [place] [address] Jul, Hypertension I10 ; Arteriosclerotic coronary artery disease I25.10 ; Mixed hyperlipidemia E78.2 ; 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 and Hyperglycemia R73.9 [place] [id number] [place] [address] 16 Jun, 2016 Hypokalemia E87.6 and Hyperglycemia R73.9 [place] [id number] [place] [address] 14 Jun, 2016 [place] [address] [address] 13 Jun, 2016 Abnormal kidney function N28.9 [place] [address] [address] Jun, [place] [address] [address] Jun, ADHD (attention deficit hyperactivity disorder), combined type F90.2 ; Generalized anxiety disorder F41.1 and Dysthymic disorder F34.1 [place] [address] [address] Jun, Generalized anxiety disorder F41.1 and Dysthymic disorder F34.1 [place] [address] [address] Jun, Hypokalemia E87.6 [place] [address] [address] May, Hypokalemia E87.6 ; Vertigo R42 and Hyperinsulinemia E16.1 [place] [id number] [place] [address] May, [place] [address] [address] May, Abnormal kidney function N28.9 ; Hyperinsulinemia E16.1 and Nausea R11.0 [place] [address] [address] May, Hypokalemia E87.6 ; Nausea R11.0 ; Epigastric pain R10.13 ; Dehydration E86.0 ; Diaphoresis R61 and Right arm pain M79.601 [place] [address] [place] [id number] [place] [address] May, [place] [address] [address] May, Hypokalemia E87.6 [place] [address] [address] May, Hypokalemia E87.6 [place] [address] [place] [id number] [place] [id number] Apr, [place] [address] [address] Apr, ADHD (attention deficit hyperactivity disorder), combined type F90.2 ; Generalized anxiety disorder F41.1 and Dysthymic disorder F34.1 [place] [address] [address] Apr, Right arm pain M79.601 and Hyperinsulinemia E16.1 [place] [address] [address] Mar, [place] [address] [address] Mar, [place] [address] [place] [id number] [place] [address] Mar, Hyperinsulinemia E16.1 ; Hyperlipidemia, unspecified hyperlipidemia type E78.5 ; Central venous catheter in place Z78.9 ; Generalized anxiety disorder F41.1 and Urinary tract infection, site not specified N39.0 [place] [address] [place] [id number] [place] [address] Mar, ADHD (attention deficit hyperactivity disorder), combined type F90.2 ; Generalized anxiety disorder F41.1 and Dysthymic disorder F34.1 [place] [address] [place] [id number] [place] [address] February, ADHD (attention deficit hyperactivity disorder), combined type F90.2 ; Generalized anxiety disorder F41.1 and Dysthymic disorder F34.1 [place] [id number] [place] [address] February, [place] [address] [place] [id number] [place] [address] February, [place] [address] [place] [address] [id number] [place] [address] February, Hypertension I10 and Weight gain R63.5 [place] [address] [place] [id number] [place] [address] February, Major depressive disorder, recurrent, moderate F33.1 and Generalized anxiety disorder F41.1 [place] [address] [place] [address] [id number] [place] [address] February, ADHD (attention deficit hyperactivity disorder), combined type F90.2 ; Generalized anxiety disorder F41.1 and Dysthymic disorder F34.1 [place] [address] [place] [id number] [place] [address] February, [place] [address] [place] [id number] [place] [address] February, Asthma J45.909 ; Weight gain R63.5 ; Hypertension I10 ; Rheumatoid arthritis M06.9 and Chronic pain syndrome G89.4 [place] [address] [place] [id number] [place] [address] Jan, ADHD (attention deficit hyperactivity disorder), combined type F90.2 ; Generalized anxiety disorder F41.1 and Dysthymic disorder F34.1 [place] [address] [place] [id number] [place] [address] Dec, ADHD (attention deficit hyperactivity disorder), combined type F90.2 ; Generalized anxiety disorder F41.1 and Dysthymic disorder F34.1 [place] [address] [place] [address] [place] [address] Dec, [facility] [address] [place] [address] Nov, [facility] [id number] [place] [address] Nov, [facility] [address] [place] [address] Nov, [facility] [address] [place] [address] Nov, [facility] [id number] [place] [address], [place] [address] Oct, [facility] [address] [place] [address] Oct, [facility] [address] [place] [address] Oct, [facility] [address] [address] Sep, [facility] [address] [address] Sep, [facility] [address] [address] Sep, Agoraphobia with panic disorder F40.01 ; Attention-deficit hyperactivity disorder, combined type F90.2 and Dysthymic disorder F34.1 [facility] [address] [address] Aug, [facility] [address] [address] Aug, [facility] [address] [address] Aug, [facility] [address] [address] Aug, Dysthymic disorder F34.1 ; Generalized anxiety disorder F41.1 and ADHD (attention deficit hyperactivity disorder), combined type F90.2 [place] [address] [place] [id number] [place] [address] Aug, ADHD (attention deficit hyperactivity disorder), combined type F90.2 ; Generalized anxiety disorder F41.1 and Dysthymic disorder F34.1 [place] [address] [place] [id number] [place] [address] Jul, Urinary tract infection, site not specified N39.0 ; Hypotension, unspecified I95.9 and Breast cancer screening Z12.39 [place] [address] [place] [id number] [place] [address] Jul, [place] [address] [place] [id number] [place] [address] Jul, [place] [address] [place] [id number] [place] [address] Jul, Urinary tract infection, site not specified N39.0 ; Nausea R11.0 ; Gastroenteritis K52.9 ; Renal failure N19 and Other hypotension I95.89 [place] [address] [place] [id number] [place] [address] Jul, [place] [address] [place] [id number] [place] [address] Jul, [place] [address] [place] [id number] [place] [address] Jul, [facility] [address] [place] [id number] [place] [address] Jun, [place] [address] [place] [id number] [place] [address] Jun, Major depression in partial remission 296.25 ; Generalized anxiety disorder 300.02 and ADHD, predominantly inattentive type 314.01 [place] [address] [place] [id number] [place] [address] May, [facility] [address] [place] [address] Apr, Major depressive disorder, recurrent episode, severe, without mention of psychotic behavior 296.33 ; Agoraphobia with panic disorder 300.21 and Generalized anxiety disorder 300.02 [facility] [address] [place] [id number] [place] [address] Apr, ADHD (attention deficit hyperactivity disorder), combined type 314.01 ; Generalized anxiety disorder 300.02 and Dysthymic disorder 300.4 [place] [address] [place] [id number] [place] [address] Apr, CAD (coronary artery disease) 414.00 ; HTN (hypertension) 401.9 and Tobacco use 305.1 [place] [address] [place] [id number] [place] [address] Apr, [place] [address] [place] [id number] [place] [address] Mar, ADHD (attention deficit hyperactivity disorder), combined type 314.01 ; Generalized anxiety disorder 300.02 ; Dysthymic disorder 300.4 ; No condition on [place] V71.09 ; Rheumatoid arthritis 714.0 ; Incontinence 788.30 ; Irritable bowel syndrome 564.1 ; Osteoporosis 733.00 and Chronic pain 338.29 [facility] [address] [place] [address] Mar, Agoraphobia with panic disorder 300.21 and Major depressive disorder, recurrent episode, moderate 296.32 [facility] [address] [place] [id number] [place] [address] Mar, [facility] [address] [place] [id number] [place] [address] February, [facility] [id number] [place] [address] February, Agoraphobia with panic disorder 300.21 and Major depressive disorder, recurrent episode, moderate 296.32 [place] [address] [id number] [place] [address] February, [facility] [place] [facility] [address] [id number] [place] [address] Jan, [facility] [place] [facility] [address] [id number] [place] [address] Jan, [facility] [place] [facility] [address] [id number] [place] [address] Dec, [facility] [place] [facility] [address] [id number] [place] [address] Dec, [facility] [place] [facility] [address] [id number] [place] [address] Dec, [facility] [place] [facility] [address] [facility] [id number] [place] [address] Dec, [facility] [place] [facility] [address] [id number] [place] [address] Dec, [facility] [place] [facility] [address] [facility] [id number] [place] [address] Dec, [facility] [place] [facility] [address] [facility] [id number] [place] [address] Nov, [facility] [place] [facility] [address] [facility] [id number] [place] [address] Nov, [facility] [place] [facility] [address] [id number] [place] [address] Nov, [facility] [place] [facility] [address] [facility] [id number] [place] [address] Nov, [facility] [place] [facility] [address] [id number] [place] [address] Nov, [facility] [place] [facility] [address] [facility] [id number] [place] [address] Nov, [facility] [place] [facility] [address] [facility] [id number] [address] 10 Nov, 2014 [facility] [address] [id number] [place] [address] Nov, [facility] [place] [facility] [address] [id number] [place] [address] Oct, [facility] [place] [facility] [address] [facility] [id number] [place] [address] Oct, [facility] [place] [facility] [address] [id number] [place] [address] Oct, [facility] [place] [facility] [address] [id number] [place] [address] Oct, [facility] [place] [facility] [address] [facility] [id number] [place] [address] Oct, [facility] [place] [facility] [address] [facility] [id number] [place] [address] Oct, [facility] [place] [facility] [address] [facility] [id number] [place] [address] Sep, [facility] [place] [facility] [address] [id number] [place] [address] Sep, [facility] [place] [facility] [address] [facility] [id number] [place] [address] Sep, [facility] [place] [facility] [address] [facility] [id number] [place] [address] Sep, [facility] [place] [facility] [address] [facility] [id number] [place] [address] Sep, [facility] [place] [facility] [address] [id number] [place] [address] Sep, [facility] [place] [facility] [address] [facility] [id number] [place] [address] Sep, [facility] [place] [facility] [address] [facility] [id number] [place] [address] Aug, [facility] [place] [facility] [address] [id number] [place] [address] Aug, [facility] [place] [facility] [address] [id number] [place] [address] Aug, [facility] [place] [facility] [address] [id number] [place] [address] Aug, [facility] [place] [facility] [address] [id number] [place] [address] Aug, [facility] [place] [facility] [address] [id number] [place] [address] Aug, [facility] [place] [facility] [address] [id number] [place] [address] Jul, [facility] [place] [facility] [address] [id number] [place] [address] Jul, [facility] [place] [facility] [address] [id number] [place] [address] Jul, [facility] [place] [facility] [address] [id number] [place] [address] Jul, [facility] [place] [facility] [address] [id number] [place] [address] Jul, [facility] [place] [facility] [address] [id number] [place] [address] Jul, [facility] [place] [facility] [address] [id number] [place] [address] Jun, [facility] [place] [facility] [address] [id number] [place] [address] Jun, [facility] [place] [facility] [address] [id number] [place] [address] May, [facility] [place] [facility] [address] [id number] [place] [address] May, [facility] [place] [facility] [address] [id number] [place] [address] Apr, [facility] [place] [facility] [address] [id number] [place] [address] Apr, [facility] [place] [facility] [address] [id number] [place] [address] Apr, [facility] [place] [facility] [address] [id number] [place] [address] Apr, [facility] [place] [facility] [address] [id number] [place] [address] Mar, [facility] [place] [facility] [address] [id number] [place] [address] Mar, [facility] [place] [facility] [address] [id number] [place] [address] Mar, [facility] [place] [facility] [address] [id number] [place] [address] Mar, [facility] [place] [facility] [address] [id number] [place] [address] February, [facility] [place] [facility] [address] [id number] [place] [address] February, [facility] [place] [facility] [address] [id number] [place] [address] February, [facility] [place] [facility] [address] [id number] [place] [address] February, [facility] [place] [facility] [address] [id number] [place] [address] February, [facility] [place] [facility] [address] [id number] [place] [address] February, [facility] [place] [facility] [address] [id number] [place] [address] Jan, [facility] [place] [facility] [address] [id number] [place] [address] Jan, [facility] [place] [facility] [address] [id number] [place] [address] Dec, [facility] [address] [id number] [place] [address] Dec, [facility] [address] [id number] [place] [address] Nov, [facility] [address] [id number] [place] [address] Nov, [facility] [address] [id number] [place] [address] Oct, [facility] [address] [id number] [place] [address] Oct, [facility] [address] [id number] [place] [address] Oct, [facility] [address] [id number] [place] [address] Oct, [facility] [address] [id number] [place] [address] Sep, [facility] [address] [id number] [place] [address] Sep, [facility] [address] [id number] [place] [address] Sep, [facility] [address] [id number] [place] [address] Sep, [facility] [address] [id number] [place] [address] Sep, [facility] [place] [facility] [address] [id number] [place] [address] Sep, [facility] [place] [facility] [address] [id number] [place] [address] Sep, [facility] [address] [id number] [place] [address] Sep, [facility] [place] [facility] [address] [id number] [place] [address] Aug, [facility] [place] [facility] [address] [id number] [place] [address] Aug, [facility] [place] [facility] [address] [id number] [place] [address] Aug, [facility] [place] [facility] [address] [id number] [place] [address] Aug, [facility] [place] [facility] [address] [id number] [place] [address] Aug, [facility] [place] [facility] [address] [id number] [place] [address] Aug, [facility] [place] [facility] [address] [id number] [place] [address] Aug, [facility] [place] [facility] [address] [id number] [address] Aug, [facility] [place] [facility] [address] [id number] [place] [address] Aug, [facility] [place] [facility] [address] [id number] [place] [address] Jul, [facility] [place] [facility] [address] [id number] [place] [address] Jun, [facility] [place] [facility] [address] [id number] [place] [address] May, [facility] [place] [facility] [address] [id number] [place] [address] May, [facility] [place] [facility] [address] [id number] [place] [address] May, [facility] [place] [facility] [address] [id number] [place] [address] Apr, [facility] [place] [facility] [address] [id number] [place] [address] 07 Mar, 2013 [facility] [address] [id number] [place] [address] February, [facility] [place] [facility] [address] [id number] [place] [address] Oct, [facility] [address] [facility] [id number] [place] [address] 16 Oct, 2012 [facility] [place] [facility] [address] [id number] [place] [address] Oct, [facility] [address] [id number] [place] [address] Oct, [facility] [place] [facility] [address] [facility] [id number] [place] [address] Oct, [facility] [id number] [address] Oct, [facility] [place] [facility] [address] [facility] [id number] [place] [address] Sep, [facility] [address] [facility] [id number] [place] [address] Sep, [facility] [place] [facility] [id number] [address] Aug, [facility] [address] [facility] [id number] [place] [address] Aug, [facility] [place] [facility] [address] [facility] [id number] [place] [address] Jul, [facility] [place] [facility] [address] [id number] [place] [address] Jul, [facility] [place] [facility] [address] [facility] [id number] [place] [address] Jul, [facility] [place] [facility] [address] [facility] [id number] [place] [address] Jul, [facility] [place] [facility] [address] [id number] [place] [address] Jul, [facility] [place] [facility] [address] [id number] [place] [address] Jul, [facility] [place] [facility] [address] [id number] [place] [address] Jul, [facility] [place] [facility] [address] [id number] [place] [address] Jul, [facility] [place] [facility] [address] [id number] [place] [address] Jun, [facility] [place] [facility] [address] [id number] [place] [address] Jun, [facility] [place] [facility] [address] [id number] [place] [address] May, [facility] [place] [facility] [address] [id number] [place] [address] Apr, [facility] [place] [facility] [address] [id number] [place] [address] Mar, [facility] [place] [facility] [address] [id number] [place] [address] Mar, [facility] [place] [facility] [address] [id number] [place] [address] Mar, [facility] [place] [facility] [address] [id number] [place] [address] Mar, [facility] [place] [facility] [address] [id number] [place] [address] Jan, [facility] [place] [facility] [address] [id number] [place] [address] 14 Nov, 2011 [facility] [place] [facility] [address] [id number] [place] [address] Nov, [facility] [place] [facility] [address] [id number] [place] [address] Nov, [facility] [id number] [address] Oct, [facility] [address] [address] Sep, [facility] [address] [address] Sep, [facility] [address] [facility] [id number] [address] Aug, [facility] [id number] [address] Aug, [facility] [address] [address] Aug, [facility] [address] [address] Aug, [facility] [address] [address] Jul, [facility] [address] [address] May, [facility] [address] [address] Jan, [facility] [id number] [address] Nov, [facility] [id number] [address] Apr, [facility] [id number] [address] Dec, [facility] [id number] [address] Nov, IMMUNIZATIONS No Known Immunizations SOCIAL HISTORY Never Assessed REASON FOR VISIT PLAN OF CARE VITAL SIGNS Height 67 in 2015-01-01 Weight 239.4 lbs 2015-01-01 Temperature 98.9 degrees Fahrenheit 2015-01-01 Heart Rate 113 bpm 2015-01-01 Respiratory Rate 30 2015-01-01 Blood pressure systolic 140 mmHg 2015-01-01 Blood pressure diastolic 92 mmHg 2015-01-01 MEDICATIONS Unknown Medications RESULTS No Results PROCEDURES Procedure Date Ordered Result Body Site MEASURE BLOOD OXYGEN LEVEL January 01, 2015 INFLUENZA ASSAY W/OPTIC January 01, 2015 NEB/MDI RX INITIAL January 01, 2015 INSTRUCTIONS MEDICATIONS ADMINISTERED No Known Medications MEDICAL (GENERAL) HISTORY Type Description Date Medical History Cardiovascular tckdagvs-TWZ-Nccwyoir, non-obstructive per [facility] (01/2011) Dr. Mendoza Medical History Stress test 03/07/13-Dr. Kelly Dietrich normal Medical History Hypertension Medical History Asthma Medical History Gastrointestinal Disorder--IBS, GERD, Hx of fatty liver Medical History Hernia 1979 Medical History Cervical dysplasia 02/16-Pap [facility]-mild dysplasia Medical History Hyperlipidemia Medical History Rheumatoid [...] Kidney injury 07/10/15-07/11/2015 Hospitalization History Symptomatic Hypokalemia/Nause-[facility]ia [facility] 05/13/16 Hospitalization History Stroke 05/03/2017 Hospitalization History stroke 08/24/2017--09/01/2017
--- OUTSIDE RECORDS SUMMARY | 2019-05-22 07:26 | XMS REPORT ---
Author Author LORI SNOWDEN [facility] Address [address] [place] [address] Care Team Providers Care Digital Intern Name Role Phone LORI SNOWDEN Unavailable PROBLEMS Type Condition ICD9-CM Code [id number] Code Onset Dates Condition Status SNOMED Code Problem Hemiparesis of left nondominant side as late effect of cerebral infarction I69.354 Active 869218183 Problem Generalized anxiety disorder F41.1 Active 03206142 Problem Morbid (severe) obesity due to excess calories E66.01 Active 600540357 Problem Chronic pain syndrome G89.4 Active 576273892 Problem ADHD (attention deficit hyperactivity disorder), combined type F90.2 Active 06981189 Problem Asthma J45.909 Active 338878715 Problem Rheumatoid arthritis M06.9 Active 73680617 Problem Anxiety F41.9 Active 67924614 Problem Gastroesophageal reflux disease with esophagitis K21.0 Active 230972289 Problem Neuropathy G62.9 Active 324266253 Problem Hyperinsulinemia E16.1 Active 34098643 Problem Obstructive sleep apnea G47.33 Active 15988506 Problem Other insomnia G47.09 Active 691978639 Problem Cerebrovascular accident (CVA), unspecified mechanism I63.9 Active 157284576 Problem 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 Active 952604556 Problem Sleep apnea in adult G47.30 Active 89294737 Problem Dysthymic disorder F34.1 Active 45019972 Problem Irritable bowel syndrome with diarrhea K58.0 Active 538112013 Problem Panic attacks F41.0 Active 902983206 Problem Mild episode of recurrent major depressive disorder F33.0 Active 918063101 Problem Chronic obstructive pulmonary disease J44.9 Active 20308601 Problem Arteriosclerotic coronary artery disease I25.10 Active 49725328 Problem Hemiplegia affecting left nondominant side G81.94 Active Problem Hypertension I10 Active 32004264 Problem Mixed hyperlipidemia E78.2 Active 016215659 Problem Seasonal allergies J30.2 Active 462730629 Problem Primary insomnia F51.01 Active 5606984 Problem Paroxysmal atrial fibrillation I48.0 Active 746148525 Problem Unsteady gait R26.81 Active 94931275 ALLERGIES No Information ENCOUNTERS Encounter Location Date Diagnosis [facility] [id number] [place] [address] May, [place] [id number] [place] [address] Apr, [id number] [place] [id number] Apr, Urinary tract infection, site not specified N39.0 ; Hematuria, unspecified R31.9 ; Right lower quadrant abdominal pain R10.31 ; Lipid screening Z13.220 ; Thyroid disorder screening Z13.29 and Irritable bowel syndrome with diarrhea K58.0 [place] [id number] [place] [address] Mar, [place] [id number] [place] [address] Mar, [place] [id number] [place] [id number] Mar, [place] [id number] [place] [address] Mar, [place] [id number] [place] [address] February, Generalized anxiety disorder F41.1 and Mild episode of recurrent major depressive disorder F33.0 [facility] [id number] [place] [address] Jan, [place] [id number] [place] [phone] Jan, Herpes zoster without complication B02.9 [place] [id number] [place] [address] Jan, Other insomnia G47.09 ; Hypertension I10 ; Rheumatoid arthritis M06.9 ; Mild episode of recurrent major depressive disorder F33.0 ; Breast cancer screening Z12.39 ; Arteriosclerotic coronary artery disease I25.10 ; Morbid (severe) obesity due to excess calories E66.01 and Hemiparesis of left nondominant side as late effect of cerebral infarction I69.354 [facility] [address] [place] [address] Jan, Asthma J45.909 and Other insomnia G47.09 [facility] [id number] [place] [address] Jan, [facility] [id number] [place] [address] Dec, Generalized anxiety disorder F41.1 and Mild episode of recurrent major depressive disorder F33.0 [facility] [id number] [place] [address] Dec, [facility] [id number] [place] [address] Dec, [facility] [address] [place] [address] Dec, [place] [id number] [place] [id number] Nov, Viral upper respiratory tract infection J06.9 [facility] [address] [address] Nov, [facility] [id number] [place] [address] Oct, [facility] [id number] [place] [address] Sep, [facility] [id number] [place] [address] Sep, [facility] [address] [place] [address] Sep, [facility] [id number] [place] [address] Sep, Orthostatic hypotension I95.1 ; Shortness of breath R06.02 ; Right foot pain M79.671 and Morbid (severe) obesity due to excess calories E66.01 [facility] [address] [address] Aug, [facility] [id number] [place] [address] Aug, [facility] [id number] [place] [address] Aug, [facility] [id number] [place] [address] Aug, [facility] [id number] [place] [address] Aug, [facility] [id number] [place] [address] Jul, [facility] [address] [place] [address] Jul, [facility] [id number] [place] [address] Jul, [facility] [address] [place] [address] Jul, [facility] [address] [place] [address] Jul, [facility] [id number] [address] Jul, [facility] [employer] [address] [place] [id number] Jul, Hemiplegia affecting left nondominant side G81.94 ; Chronic obstructive pulmonary disease J44.9 and Weakness R53.1 [facility] [address] [place] [address] Jul, [facility] [employer] [facility] [address] [place] [id number] Jul, Weakness R53.1 ; Paroxysmal atrial fibrillation I48.0 and Unsteady gait R26.81 [place] [id number] [place] [address] Jul, Tobacco abuse Z72.0 [facility] [address] [place] [id number] Jun, History of acute respiratory failure Z87.09 ; Weight gain R63.5 and Tobacco abuse Z72.0 [place] [id number] [place] [address] Jun, [place] [id number] [place] [address] May, Primary insomnia F51.01 [place] [id number] [place] [address] May, Mild episode of recurrent major depressive disorder F33.0 [place] [id number] [place] [address] May, [place] [id number] [place] [address] May, Chronic obstructive pulmonary disease, unspecified COPD type J44.9 ; Primary insomnia F51.01 ; Fatigue, unspecified type R53.83 and Weight gain R63.5 [place] [id number] [place] [address] May, Thrush B37.0 [place] [id number] [place] [address] May, Mild episode of recurrent major depressive disorder F33.0 and Generalized anxiety disorder F41.1 [place] [id number] [place] [address] May, Thrush B37.0 [place] [id number] [place] [address] Apr, Cough R05 [facility] [address] [place] [address] Mar, Mild episode of recurrent major depressive disorder F33.0 [facility] [id number] [place] [address] Mar, Mild episode of recurrent major depressive disorder F33.0 and Generalized anxiety disorder F41.1 [facility] [address] [address] Mar, Seasonal allergies J30.2 [facility] [id number] [place] [address] Mar, Seasonal allergies J30.2 [facility] [id number] [place] [address] February, Generalized anxiety disorder F41.1 [facility] [id number] [place] [address] February, Cough R05 and Seasonal allergies J30.2 [facility] [id number] [place] [address] February, Generalized anxiety disorder F41.1 and Mild episode of recurrent major depressive disorder F33.0 [facility] [id number] [place] [address] February, Other snf (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 ; Anxiety F41.9 ; Panic attacks F41.0 and Irritable bowel syndrome with diarrhea K58.0 [facility] [id number] [place] [address] February, [place] [id number] [place] [address] Jan, Mixed hyperlipidemia E78.2 [facility] [id number] [place] [address] Jan, [facility] [id number] [place] [address] Jan, [facility] [address], [place] [address] Jan, [facility] [id number] [place] [address] Jan, [facility] [id number] [place] [address] Dec, [facility] [id number] [place] [address] Dec, [facility] [id number] [place] [address] Dec, [facility] [id number] [place] [address] Nov, Dysthymic disorder F34.1 [facility] [id number] [place] [address] Oct, [facility] [id number] [place] [address] Oct, [facility] [id number] [place] [address] Oct, [facility] [id number] [place] [address] Oct, Diarrhea, unspecified type R19.7 and Dysuria R30.0 [facility] [id number] [place] [address] Oct, [facility] [id number] [place] [address] Sep, [facility] [id number] [place] [address] Sep, [facility] [id number] [place] [address] Sep, Anxiety F41.9 [facility] [id number] [place] [address] Sep, Cerebrovascular accident (CVA), unspecified mechanism I63.9 ; Mixed hyperlipidemia E78.2 ; Gastroesophageal reflux disease with esophagitis K21.0 and Anxiety F41.9 [place] [address] [place] [address] Sep, [place] [address] [address] Aug, Chronic obstructive pulmonary disease, unspecified J44.9 ; Asthma J45.909 ; Nausea R11.0 ; Dysthymic disorder F34.1 ; Cerebrovascular accident (CVA), unspecified mechanism I63.9 and Rheumatoid arthritis M06.9 [place] [id number] [place] [address] Aug, Nausea R11.0 ; Encounter for immunization Z23 ; Sleep apnea in adult G47.30 ; Rheumatoid arthritis involving multiple sites, unspecified rheumatoid factor presence M06.9 ; Generalized anxiety disorder F41.1 ; Dysthymic disorder F34.1 and Asthma J45.909 [place] [id number] [place] [address] Jul, [place] [id number] [place] [address] May, ADHD (attention deficit hyperactivity disorder), combined type F90.2 ; Generalized anxiety disorder F41.1 and Persistent depressive disorder F34.1 [place] [id number] [place] [address] May, Cerebrovascular accident (CVA), unspecified mechanism I63.9 [place] [id number] [place] [address] Apr, Mixed hyperlipidemia E78.2 and Cerebrovascular accident (CVA), unspecified mechanism I63.9 [place] [id number] [place] [address] Apr, Generalized anxiety disorder F41.1 [place] [id number] [place] [address] Apr, Bronchitis J40 and Tobacco use Z72.0 [place] [address] [address] Apr, Mixed hyperlipidemia E78.2 [place] [address] [address] Apr, 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 [place] [address] [address] Apr, [place] [address] [address] Apr, Generalized anxiety disorder F41.[address] [address] Apr, Obstructive sleep apnea G47.33 and Hyperinsulinemia E16.1 [place] [address] [address] Apr, ADHD (attention deficit hyperactivity disorder), combined type F90.2 ; Generalized anxiety disorder F41.1 and Persistent depressive disorder F34.1 [place] [id number] [place] [address] Mar, [place] [id number] [place] [address] Mar, Generalized anxiety disorder F41.1 [place] [id number] [place] [address] Mar, Tarsal tunnel syndrome of both lower extremities G57.53 [place] [address] [address] February, [place] [id number] [place] [address] February, [place] [address] [address] February, Asthma J45.909 [place] [id number] [place] [address] February, Generalized anxiety disorder F41.1 [place] [address] [address] February, Hypoxemia R09.02 ; Hyperglycemia R73.9 ; Rheumatoid arthritis M06.9 and Generalized anxiety disorder F41.1 [place] [address] [address] February, [place] [address] [address] Jan, Chronic obstructive pulmonary disease, unspecified J44.9 [place] [address] [address] Jan, Chronic pain syndrome G89.4 [place] [address] [address] Jan, Hypoxemia R09.02 [place] [address] [address] Jan, [place] [address] [address] Jan, Chronic obstructive pulmonary disease, unspecified J44.9 ; Hypoxemia R09.02 ; Other insomnia G47.09 and Left anterior shoulder pain M25.512 [place] [id number] [place] [address] Jan, Numbness in feet R20.0 and Neuropathy G62.9 [place] [address] [address] Jan, [place] [address] [address] Dec, Acute pain of left shoulder M25.512 [place] [address] [address] Dec, Acute pain of left shoulder M25.512 [facility] [address] [place] [address] Dec, Generalized anxiety disorder F41.1 [facility] [address] [place] [address] Dec, Generalized anxiety disorder F41.1 [facility] [id number] [place] [address] Nov, ADHD (attention deficit hyperactivity disorder), combined type F90.2 ; Generalized anxiety disorder F41.1 and Persistent depressive disorder F34.1 [facility] [id number] [place] [address] Nov, Acute pain of left shoulder M25.512 [facility] [id number] [place] [address] Nov, ADHD (attention deficit hyperactivity disorder), combined type F90.2 ; Generalized anxiety disorder F41.1 and Persistent depressive disorder F34.1 [facility] [address] [place] [address] Nov, Chronic pain syndrome G89.4 [facility] [id number] [place] [address] Nov, Chronic pain syndrome G89.4 [facility] [id number] [place] [address] 08 Nov, 2016 Acute pain of left shoulder M25.512 [facility] [address] [place] [address] Nov, Generalized anxiety disorder F41.1 [facility] [address] [place] [address] Nov, Acute pain of left shoulder M25.512 [facility] [id number] [place] [address] Nov, ADHD (attention deficit hyperactivity disorder), combined type F90.2 ; Generalized anxiety disorder F41.1 and Persistent depressive disorder F34.1 [place] [id number] [place] [address] Nov, Acute pain of left shoulder M25.512 ; Generalized anxiety disorder F41.1 ; Chronic pain syndrome G89.4 ; Hyperinsulinemia E16.1 ; Pain of left foot M79.672 and Pain in right foot M79.671 [place] [address] [address] Oct, ADHD (attention deficit hyperactivity disorder), combined type F90.2 ; Generalized anxiety disorder F41.1 and Dysthymic disorder F34.1 [place] [id number] [place] [address] Sep, [address] [address] Sep, [address] [address] Sep, Routine gynecological examination V72.31 ; Cervical cancer screening Z12.4 ; Breast cancer screening Z12.39 ; Colon cancer screening Z12.11 ; Hypokalemia E87.6 ; Herpes simplex type 1 infection B00.9 and Abscess of right axilla L02.411 [id number] [place] [address] Sep, [place] [id number] [place] [address] Sep, ADHD (attention deficit hyperactivity disorder), combined type F90.2 ; Generalized anxiety disorder F41.1 and Dysthymic disorder F34.1 [id number] [place] [address] Aug, [place] [id number] [place] [address] Aug, [address] [address] Aug, Generalized anxiety disorder F41.1 [place] [address] [address] Aug, ADHD (attention deficit hyperactivity disorder), combined type F90.2 ; Generalized anxiety disorder F41.1 and Dysthymic disorder F34.1 [place] [address] [address] Jul, Chronic pain syndrome G89.4 ; Hypertension I10 ; Hypokalemia E87.6 ; Asthma J45.909 and Nausea R11.0 [place] [address] [address] Jul, [place] [address] [address] Jul, Asthma J45.909 [place] [address] [address] Jul, ADHD (attention deficit hyperactivity disorder), combined type F90.2 ; Generalized anxiety disorder F41.1 and Dysthymic disorder F34.1 [place] [address] [address] Jul, [place] [address] [address] Jul, Hypertension I10 ; Arteriosclerotic coronary artery disease I25.10 ; Mixed hyperlipidemia E78.2 ; 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 and Hyperglycemia R73.9 [place] [address] [address] 16 Jun, 2016 Hypokalemia E87.6 and Hyperglycemia R73.9 [place] [address] [address] 14 Jun, 2016 [place] [address] [address] Jun, Abnormal kidney function N28.9 [place] [address] [address] Jun, [place] [address] [address] Jun, ADHD (attention deficit hyperactivity disorder), combined type F90.2 ; Generalized anxiety disorder F41.1 and Dysthymic disorder F34.1 [place] [address] [address] Jun, Generalized anxiety disorder F41.1 and Dysthymic disorder F34.1 [place] [address] [address] Jun, Hypokalemia E87.6 [place] [address] [address] May, Hypokalemia E87.6 ; Vertigo R42 and Hyperinsulinemia E16.1 [place] [address] [address] May, [place] [address] [address] May, Abnormal kidney function N28.9 ; Hyperinsulinemia E16.1 and Nausea R11.0 [place] [address] [address] May, Hypokalemia E87.6 ; Nausea R11.0 ; Epigastric pain R10.13 ; Dehydration E86.0 ; Diaphoresis R61 and Right arm pain M79.601 [place] [address] [address] May, [place] [address] [address] May, Hypokalemia E87.6 [place] [address] [address] May, Hypokalemia E87.6 [facility] [address] [place] [address] Apr, [facility] [id number] [place] [address] Apr, ADHD (attention deficit hyperactivity disorder), combined type F90.2 ; Generalized anxiety disorder F41.1 and Dysthymic disorder F34.1 [place] [id number] [place] [address] Apr, Right arm pain M79.601 and Hyperinsulinemia E16.1 [place] [id number] [place] [address] Mar, [place] [id number] [place] [address] Mar, [place] [id number] [place] [address] Mar, Hyperinsulinemia E16.1 ; Hyperlipidemia, unspecified hyperlipidemia type E78.5 ; Central venous catheter in place Z78.9 ; Generalized anxiety disorder F41.1 and Urinary tract infection, site not specified N39.0 [place] [address] [place] [address] Mar, ADHD (attention deficit hyperactivity disorder), combined type F90.2 ; Generalized anxiety disorder F41.1 and Dysthymic disorder F34.1 [place] [address] [place] [address] February, ADHD (attention deficit hyperactivity disorder), combined type F90.2 ; Generalized anxiety disorder F41.1 and Dysthymic disorder F34.1 [place] [address] [place] [address] February, [facility] [address] [place] [address] February, [facility] [id number] [address] February, Hypertension I10 and Weight gain R63.5 [place] [id number] [place] [address] February, Major depressive disorder, recurrent, moderate F33.1 and Generalized anxiety disorder F41.1 [place] [address] [place] [address] February, ADHD (attention deficit hyperactivity disorder), combined type F90.2 ; Generalized anxiety disorder F41.1 and Dysthymic disorder F34.1 [place] [address] [place] [address] February, [place] [address] [place] [id number] [place] [id number] February, Asthma J45.909 ; Weight gain R63.5 ; Hypertension I10 ; Rheumatoid arthritis M06.9 and Chronic pain syndrome G89.4 [place] [address] [id number] [place] [phone] Jan, ADHD (attention deficit hyperactivity disorder), combined type F90.2 ; Generalized anxiety disorder F41.1 and Dysthymic disorder F34.1 [place] [id number] [phone] Dec, ADHD (attention deficit hyperactivity disorder), combined type F90.2 ; Generalized anxiety disorder F41.1 and Dysthymic disorder F34.1 [place] [address], [place] [address] Dec, [place] [address] [place] [id number] [place] [address] Nov, [place] [id number] [place] [address] Nov, [place] [address], [place] [address] Nov, [facility] [address], [place] [address] Nov, [facility] [address], [place] [address] Oct, [facility] [address], [place] [address] Oct, [facility] [id number] [place] [address] Oct, [facility] [id number] [place] [address] Sep, [facility] [id number] [place] [address] Sep, [facility] [address], [place] [address] Sep, Agoraphobia with panic disorder F40.01 ; Attention-deficit hyperactivity disorder, combined type F90.2 and Dysthymic disorder F34.1 [facility] [address], [place] [address] Aug, [facility] [address], [place] [address] Aug, [facility] [address], [place] [address] Aug, [facility] [address], [place] [address] Aug, Dysthymic disorder F34.1 ; Generalized anxiety disorder F41.1 and ADHD (attention deficit hyperactivity disorder), combined type F90.2 [facility] [address], [place] [address] Aug, ADHD (attention deficit hyperactivity disorder), combined type F90.2 ; Generalized anxiety disorder F41.1 and Dysthymic disorder F34.1 [facility] [address], [place] [address] Jul, Urinary tract infection, site not specified N39.0 ; Hypotension, unspecified I95.9 and Breast cancer screening Z12.39 [facility] [id number] [place] [address] Jul, [facility] [id number] [place] [address] Jul, [facility] [id number] [place] [address] Jul, Urinary tract infection, site not specified N39.0 ; Nausea R11.0 ; Gastroenteritis K52.9 ; Renal failure N19 and Other hypotension I95.89 [facility] [address] [id number] [place] [address] Jul, [facility] [id number] [place] [address] Jul, [facility] [id number] [place] [address] Jul, [facility] [id number] [place] [address] Jun, [facility] [id number] [place] [address] Jun, Major depression in partial remission 296.25 ; Generalized anxiety disorder 300.02 and ADHD, predominantly inattentive type 314.01 [facility] [id number] [place] [address] May, [facility] [id number] [place] [address] Apr, Major depressive disorder, recurrent episode, severe, without mention of psychotic behavior 296.33 ; Agoraphobia with panic disorder 300.21 and Generalized anxiety disorder 300.02 [facility] [id number] [place] [address] Apr, ADHD (attention deficit hyperactivity disorder), combined type 314.01 ; Generalized anxiety disorder 300.02 and Dysthymic disorder 300.4 [facility] [id number] [place] [address] Apr, CAD (coronary artery disease) 414.00 ; HTN (hypertension) 401.9 and Tobacco use 305.1 [facility] [id number] [place] [address] Apr, [facility] [address] [place] [address] Mar, ADHD (attention deficit hyperactivity disorder), combined type 314.01 ; Generalized anxiety disorder 300.02 ; Dysthymic disorder 300.4 ; No condition on [place] II V71.09 ; Rheumatoid arthritis 714.0 ; Incontinence 788.30 ; Irritable bowel syndrome 564.1 ; Osteoporosis 733.00 and Chronic pain 338.29 [place] [id number] [place] [address] Mar, Agoraphobia with panic disorder 300.21 and Major depressive disorder, recurrent episode, moderate 296.32 [facility] [address] [place] [id number] [place] [address] Mar, [facility] [id number] [place] [address] February, [facility] [id number] [place] [address] February, Agoraphobia with panic disorder 300.21 and Major depressive disorder, recurrent episode, moderate 296.32 [facility] [id number] [place] [address] February, [facility] [address] [place] [id number] [place] [address] Jan, [facility] [id number] [place] [address] Jan, [facility] [address] [id number] [place] [address] Dec, [facility] [place] [facility] [address] [id number] [place] [address] Dec, [facility] [place] [facility] [address] [id number] [place] [address] Dec, [facility] [place] [facility] [address] [id number] [place] [address] Dec, [facility] [place] [facility] [address] [id number] [place] [address] Dec, [facility] [place] [facility] [address] [id number] [place] [address] Dec, [facility] [place] [facility] [address] [id number] [place] [address] Nov, [facility] [place] [facility] [address] [id number] [place] [address] Nov, [facility] [place] [facility] [address] [id number] [place] [address] Nov, [facility] [place] [facility] [address] [id number] [place] [address] Nov, [facility] [place] [facility] [address] [id number] [place] [address] Nov, [facility] [place] [facility] [address] [id number] [place] [address] Nov, [facility] [place] [facility] [address] [id number] [place] [address] Nov, [facility] [place] [facility] [address] [id number] [place] [address] Nov, [facility] [place] [facility] [address] [id number] [place] [address] Oct, [facility] [place] [facility] [address] [id number] [place] [address] Oct, [facility] [place] [facility] [address] [id number] [place] [address] Oct, [facility] [address] [id number] [place] [address] Oct, [facility] [place] [facility] [address] [id number] [place] [address] Oct, [facility] [address] [id number] [place] [address] Oct, [facility] [place] [facility] [address] [id number] [place] [address] Sep, [facility] [place] [facility] [address] [id number] [place] [address] Sep, [facility] [place] [facility] [address] [id number] [place] [address] Sep, [facility] [place] [facility] [address] [id number] [place] [address] Sep, [facility] [address] [id number] [place] [address] Sep, [facility] [place] [facility] [address] [id number] [place] [address] Sep, [facility] [place] [facility] [address] [id number] [place] [address] Sep, [facility] [place] [facility] [address] [id number] [place] [address] Aug, [facility] [place] [facility] [address] [id number] [place] [address] Aug, [facility] [place] [facility] [address] [id number] [place] [address] Aug, [facility] [place] [facility] [address] [id number] [place] [address] Aug, [facility] [place] [facility] [address] [id number] [place] [address] Aug, [facility] [place] [facility] [address] [id number] [place] [address] Aug, [facility] [place] [facility] [address] [id number] [place] [address] Jul, [facility] [place] [facility] [address] [id number] [place] [address] Jul, [facility] [place] [facility] [address] [id number] [place] [address] Jul, [facility] [place] [facility] [address] [id number] [place] [address] Jul, [facility] [place] [facility] [address] [id number] [place] [address] Jul, [facility] [place] [facility] [address] [id number] [place] [address] Jul, [facility] [place] [facility] [address] [id number] [place] [address] Jun, [facility] [place] [facility] [address] [id number] [place] [address] Jun, [facility] [place] [facility] [address] [id number] [place] [address] May, [facility] [place] [facility] [address] [id number] [place] [address] May, [facility] [place] [facility] [address] [id number] [place] [address] Apr, [facility] [place] [facility] [address] [id number] [place] [address] Apr, [facility] [place] [facility] [address] [id number] [place] [address] Apr, [facility] [place] [facility] [address] [id number] [place] [address] Apr, [facility] [place] [facility] [address] [id number] [place] [address] Mar, [facility] [place] [facility] [address] [id number] [place] [address] Mar, [facility] [place] [facility] [address] [id number] [place] [address] Mar, [facility] [place] [facility] [address] [id number] [place] [address] Mar, [facility] [place] [facility] [address] [id number] [place] [address] February, [facility] [place] [facility] [address] [id number] [place] [address] February, [facility] [place] [facility] [address] [id number] [place] [address] February, [facility] [place] [facility] [address] [id number] [place] [address] February, [facility] [place] [facility] [address] [id number] [place] [address] February, [facility] [place] [facility] [address] [id number] [place] [address] February, [facility] [place] [facility] [address] [id number] [place] [address] Jan, [facility] [place] [facility] [address] [id number] [place] [address] Jan, [facility] [place] [facility] [address] [id number] [place] [address] Dec, [facility] [place] [facility] [address] [id number] [place] [address] Dec, [facility] [place] [facility] [address] [id number] [place] [address] Nov, [facility] [place] [facility] [address] [id number] [place] [address] Nov, [facility] [place] [facility] [address] [id number] [place] [address] Oct, [facility] [place] [facility] [address] [id number] [place] [address] Oct, [facility] [place] [facility] [address] [id number] [place] [address] Oct, [facility] [place] [facility] [address] [id number] [place] [address] Oct, [facility] [place] [facility] [address] [id number] [place] [address] Sep, [facility] [place] [facility] [address] [id number] [place] [address] Sep, [facility] [address] [id number] [place] [address] Sep, [facility] [place] [facility] [address] [id number] [place] [address] Sep, [facility] [place] [facility] [address] [id number] [place] [address] Sep, [facility] [place] [facility] [address] [id number] [place] [address] Sep, [facility] [place] [facility] [address] [id number] [place] [address] Sep, [facility] [place] [facility] [address] [id number] [place] [address] Sep, [facility] [place] [facility] [address] [id number] [place] [address] Aug, [facility] [place] [facility] [address] [id number] [place] [address] Aug, [facility] [place] [facility] [address] [id number] [place] [address] Aug, [facility] [place] [facility] [address] [id number] [place] [address] Aug, [facility] [place] [facility] [address] [id number] [place] [address] Aug, [facility] [place] [facility] [address] [id number] [place] [address] Aug, [facility] [place] [facility] [address] [id number] [place] [address] Aug, [facility] [place] [facility] [address] [id number] [place] [address] Aug, [facility] [place] [facility] [address] [id number] [place] [address] Aug, [facility] [place] [facility] [address] [id number] [place] [address] Jul, [facility] [place] [facility] [address] [id number] [place] [address] Jun, [facility] [place] [facility] [address] [id number] [place] [address] May, [facility] [place] [facility] [address] [id number] [place] [address] May, [facility] [place] [facility] [address] [id number] [place] [address] May, [facility] [place] [facility] [address] [id number], [place] [address] Apr, [facility] [place] [facility] [address] [id number], [place] [address] Mar, [facility] [place] [facility] [address] [id number] [place] [address] February, [facility] [place] [facility] [address] [id number] [place] [address] Oct, [facility] [place] [facility] [address] [id number] [place] [address] Oct, [facility] [place] [facility] [address] [id number] [place] [address] 14 Oct, 2012 [facility] [address] [id number] [place] [address] 14 Oct, 2012 [facility] [address] [id number] [place] [address] 09 Oct, 2012 [facility] [address] [id number] [place] [address] Oct, [facility] [address] [id number] [place] [address] Sep, [facility] [address] [id number] [place] [address], [place] [address] Sep, [facility] [address] [id number] [place] [address] Aug, [facility] [address] [facility] [id number] [place] [address] Aug, [facility] [address] [id number] [place] [address] Jul, [facility] [address] [facility] [id number] [place] [address] Jul, [facility] [address] [facility] [id number] [place] [address] Jul, [facility] [place] [facility] [address] [id number] [place] [address] Jul, [facility] [address] [id number] [place] [address] Jul, [facility] [place] [facility] [address] [id number] [place] [address] Jul, [facility] [place] [facility] [address] [facility] [id number] [place] [address] Jul, [facility] [place] [facility] [address] [facility] [id number] [place] [address] Jul, [facility] [address] [id number] [place] [address] 16 Jun, 2012 [facility] [place] [facility] [address] [id number] [place] [address] Jun, [facility] [place] [facility] [address] [id number] [place] [address] May, [facility] [place] [facility] [address] [id number] [place] [address] Apr, [facility] [place] [facility] [address] [id number] [place] [address] Mar, [facility] [place] [facility] [address] [id number] [place] [address] Mar, [facility] [place] [facility] [address] [id number] [place] [address] Mar, [facility] [place] [facility] [address] [id number] [place] [address] Mar, [facility] [place] [facility] [address] [id number] [place] [address] Jan, [facility] [place] [facility] [address] [id number] [place] [address] Nov, [facility] [place] [facility] [address] [id number] [place] [address] Nov, [facility] [place] [facility] [address] [id number], [place] [address] Nov, [facility] [place] [facility] [address] [id number] [place] [address] Oct, [facility] [place] [facility] [address] [id number] [place] [address] Sep, [facility] [place] [facility] [address] [id number] [place] [address] Sep, [facility] [place] [facility] [address] [place] [address] Aug, [facility] [address] [address] Aug, [facility] [address], [place] [address] Aug, [facility] [address], [place] [address] Aug, [facility] [address], [place] [address] Jul, [facility] [id number] [place] [address] May, [facility] [id number] [address] Jan, [facility] [id number] [place] [address] Nov, [facility] [address], [place] [address] Apr, [facility] [address], [place] [address] Dec, [facility] [address], [place] [address] Nov, IMMUNIZATIONS No Known Immunizations SOCIAL HISTORY Never Assessed REASON FOR VISIT PLAN OF CARE VITAL SIGNS Height 67 in 2014-11-30 Weight 247.5 lbs 2014-11-30 Temperature 98.7 degrees Fahrenheit 2014-11-30 Heart Rate 96 bpm 2014-11-30 Respiratory Rate 32 2014-11-30 Blood pressure systolic 128 mmHg 2014-11-30 Blood pressure diastolic 88 mmHg 2014-11-30 MEDICATIONS Unknown Medications RESULTS No Results PROCEDURES Procedure Date Ordered Result Body Site COMPLETE CBC W/AUTO DIFF WBC Nov 30, 2014 LIPID PANEL Nov 30, 2014 COMPREHEN METABOLIC PANEL Nov 30, 2014 VENIPUNCT, ROUTINE* Nov 30, 2014 INSTRUCTIONS MEDICATIONS ADMINISTERED No Known Medications MEDICAL (GENERAL) HISTORY Type Description Date Medical History Cardiovascular evratiyf-SZN-Yehypfki, non-obstructive per [facility] (01/2011) Dr. Mendoza Medical History Stress test 03/07/13-Dr. Kelly Dietrich normal Medical History Hypertension Medical History Asthma Medical History Gastrointestinal Disorder--IBS, GERD, Hx of fatty liver Medical History Hernia 1979 Medical History Cervical dysplasia 02/16-Pap LGSIL/[place]-mild dysplasia Medical History Hyperlipidemia Medical History Rheumatoid [...]
--- OUTSIDE RECORDS SUMMARY | 2019-05-22 07:27 | XMS REPORT ---
Author Author LORI SNOWDEN [facility] Address [address] [place] [address] Care Team Providers Care Life Sciences Manager Name Role Phone LORI SNOWDEN Unavailable PROBLEMS Type Condition ICD9-CM Code FYA24-UG Code Onset Dates Condition Status SNOMED Code Problem Hemiparesis of left nondominant side as late effect of cerebral infarction I69.354 Active 051698638 Problem Generalized anxiety disorder F41.1 Active 17024354 Problem Morbid (severe) obesity due to excess calories E66.01 Active 397159634 Problem Chronic pain syndrome G89.4 Active 477461474 Problem ADHD (attention deficit hyperactivity disorder), combined type F90.2 Active 44868281 Problem Asthma J45.909 Active 193861823 Problem Rheumatoid arthritis M06.9 Active 75600164 Problem Anxiety F41.9 Active 98436477 Problem Gastroesophageal reflux disease with esophagitis K21.0 Active 170326254 Problem Neuropathy G62.9 Active 938551216 Problem Hyperinsulinemia E16.1 Active 77151983 Problem Obstructive sleep apnea G47.33 Active 21855527 Problem Other insomnia G47.09 Active 992038695 Problem Cerebrovascular accident (CVA), unspecified mechanism I63.9 Active 071983529 Problem Other oysterman (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 Active 025162650 Problem Sleep apnea in adult G47.30 Active 47256012 Problem Dysthymic disorder F34.1 Active 36637113 Problem Irritable bowel syndrome with diarrhea K58.0 Active 188547785 Problem Panic attacks F41.0 Active 361904152 Problem Mild episode of recurrent major depressive disorder F33.0 Active 114940214 Problem Chronic obstructive pulmonary disease J44.9 Active 46713123 Problem Arteriosclerotic coronary artery disease I25.10 Active 09517560 Problem Hemiplegia affecting left nondominant side G81.94 Active Problem Hypertension I10 Active 31043016 Problem Mixed hyperlipidemia E78.2 Active 671120650 Problem Seasonal allergies J30.2 Active 413590304 Problem Primary insomnia F51.01 Active 5356584 Problem Paroxysmal atrial fibrillation I48.0 Active 098479312 Problem Unsteady gait R26.81 Active 09562504 ALLERGIES No Information ENCOUNTERS Encounter Location Date Diagnosis [place] [id number] [place] [address] May, [place] [id number] [place] [address] Apr, [place] [id number] [place] [address] Mar, [place] [address] [address] Mar, [place] [id number] [place] [id number] Mar, [place] [address] [address] Mar, [place] [id number] [place] [address] February, Generalized anxiety disorder F41.1 and Mild episode of recurrent major depressive disorder F33.0 [place] [id number] [place] [address] Jan, [place] [id number] [place] [id number] Jan, Herpes zoster without complication B02.9 [place] [id number] [place] [address] 15 Jan, 2019 Other insomnia G47.09 ; Hypertension I10 ; Rheumatoid arthritis M06.9 ; Mild episode of recurrent major depressive disorder F33.0 ; Breast cancer screening Z12.39 ; Arteriosclerotic coronary artery disease I25.10 ; Morbid (severe) obesity due to excess calories E66.01 and Hemiparesis of left nondominant side as late effect of cerebral infarction I69.354 [place] [id number] [place] [address] Jan, Asthma J45.909 and Other insomnia G47.09 [facility] [id number] [place] [address] Jan, [facility] [id number] [place] [address] Dec, Generalized anxiety disorder F41.1 and Mild episode of recurrent major depressive disorder F33.0 [facility] [id number] [place] [address] Dec, [facility] [id number] [place] [address] Dec, [facility] [id number] [place] [address] Dec, [address] [id number] Nov, Viral upper respiratory tract infection J06.9 [facility] [address] [address] Nov, [facility] [id number] [place] [address] Oct, [facility] [address] [address] Sep, [facility] [id number] [place] [address] Sep, [facility] [id number] [place] [address] Sep, [facility] [id number] [place] [address] Sep, Orthostatic hypotension I95.1 ; Shortness of breath R06.02 ; Right foot pain M79.671 and Morbid (severe) obesity due to excess calories E66.01 [facility] [id number] [place] [address] Aug, [facility] [address] [facility] [id number] [address] Aug, [facility] [address] [facility] [id number] [address] Aug, [facility] [address] [facility] [id number] [place] [address] Aug, [facility] [address] [facility] [id number] [place] [address] Aug, [facility] [address] [facility] [id number] [address] Jul, [facility] [address] [facility] [id number] [place] [address] Jul, [facility] [address] [facility] [id number] [place] [address] Jul, [facility] [address] [facility] [id number] [address] Jul, [facility] [address] [facility] [id number] [place] [address] Jul, [facility] [address] [facility] [id number] [place] [address] Jul, [employer] [address] [place] [id number] Jul, Hemiplegia affecting left nondominant side G81.94 ; Chronic obstructive pulmonary disease J44.9 and Weakness R53.1 [facility] [address] [facility] [id number] [place] [address] Jul, [employer] [address] [place] [place] [id number] Jul, Weakness R53.1 ; Paroxysmal atrial fibrillation I48.0 and Unsteady gait R26.81 [facility] [address] [facility] [id number] [place] [address] Jul, Tobacco abuse Z72.0 [employer] [address] [place] [id number] Jun, History of acute respiratory failure Z87.09 ; Weight gain R63.5 and Tobacco abuse Z72.0 [place] [id number] [place] [address] Jun, [facility] [id number] [place] [address] May, Primary insomnia F51.01 [facility] [id number] [place] [address] May, Mild episode of recurrent major depressive disorder F33.0 [place] [id number] [place] [address] May, [place] [id number] [place] [address] May, Chronic obstructive pulmonary disease, unspecified COPD type J44.9 ; Primary insomnia F51.01 ; Fatigue, unspecified type R53.83 and Weight gain R63.5 [place] [id number] [place] [address] May, Thrush B37.0 [place] [id number] [place] [address] May, Mild episode of recurrent major depressive disorder F33.0 and Generalized anxiety disorder F41.1 [place] [id number] [place] [address] May, Thrush B37.0 [place] [id number] [place] [address] Apr, Cough R05 [facility] [id number] [place] [address] Mar, Mild episode of recurrent major depressive disorder F33.0 [facility] [address] [address] Mar, Mild episode of recurrent major depressive disorder F33.0 and Generalized anxiety disorder F41.1 [facility] [id number] [place] [address] Mar, Seasonal allergies J30.2 [facility] [id number] [place] [address] Mar, Seasonal allergies J30.2 [facility] [id number] [place] [address] February, Generalized anxiety disorder F41.1 [facility] [id number] [place] [address] February, Cough R05 and Seasonal allergies J30.2 [facility] [id number] [place] [address] February, Generalized anxiety disorder F41.1 and Mild episode of recurrent major depressive disorder F33.0 [facility] [id number] [place] [address] February, Other snf (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 ; Anxiety F41.9 ; Panic attacks F41.0 and Irritable bowel syndrome with diarrhea K58.0 [facility] [id number] [place] [address] February, [facility] [id number] [place] [address] Jan, Mixed hyperlipidemia E78.2 [facility] [id number] [place] [address] Jan, [facility] [id number] [place] [address] Jan, [facility] [address] [address] Jan, [facility] [id number] [place] [address] Jan, [facility] [address] [place] [address] Dec, [facility] [id number] [place] [address] Dec, [facility] [id number] [place] [address] Dec, [facility] [id number] [place] [address] Nov, Dysthymic disorder F34.1 [facility] [id number] [place] [address] Oct, [facility] [address] [address] Oct, [facility] [id number] [place] [address] Oct, [facility] [address] [address] Oct, Diarrhea, unspecified type R19.7 and Dysuria R30.0 [facility] [id number] [place] [address] Oct, [facility] [id number] [place] [address] Sep, [facility] [id number] [place] [address] Sep, [facility] [id number] [place] [address] Sep, Anxiety F41.9 [facility] [id number] [place] [address] Sep, Cerebrovascular accident (CVA), unspecified mechanism I63.9 ; Mixed hyperlipidemia E78.2 ; Gastroesophageal reflux disease with esophagitis K21.0 and Anxiety F41.9 [facility] [id number] [place] [address] Sep, [place] [id number] [place] [address] Aug, Chronic obstructive pulmonary disease, unspecified J44.9 ; Asthma J45.909 ; Nausea R11.0 ; Dysthymic disorder F34.1 ; Cerebrovascular accident (CVA), unspecified mechanism I63.9 and Rheumatoid arthritis M06.[address] [address] Aug, Nausea R11.0 ; Encounter for immunization Z23 ; Sleep apnea in adult G47.30 ; Rheumatoid arthritis involving multiple sites, unspecified rheumatoid factor presence M06.9 ; Generalized anxiety disorder F41.1 ; Dysthymic disorder F34.1 and Asthma J45.[address] [address] Jul, [address] [address] May, ADHD (attention deficit hyperactivity disorder), combined type F90.2 ; Generalized anxiety disorder F41.1 and Persistent depressive disorder F34.[address] [address] May, Cerebrovascular accident (CVA), unspecified mechanism I63.[address] [address] Apr, Mixed hyperlipidemia E78.2 and Cerebrovascular accident (CVA), unspecified mechanism I63.9 [place] [id number] [place] [address] Apr, Generalized anxiety disorder F41.[address] [address] Apr, Bronchitis J40 and Tobacco use Z72.[address] [address] Apr, Mixed hyperlipidemia E78.[id number] [place] [address] Apr, Other snf (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 [facility] [id number] [place] [address] Apr, [place] [id number] [place] [address] Apr, Generalized anxiety disorder F41.1 [place] [address] [address] Apr, Obstructive sleep apnea G47.33 and Hyperinsulinemia E16.1 [place] [address] [address] Apr, ADHD (attention deficit hyperactivity disorder), combined type F90.2 ; Generalized anxiety disorder F41.1 and Persistent depressive disorder F34.1 [place] [id number] [place] [address] Mar, [place] [id number] [place] [address] Mar, Generalized anxiety disorder F41.1 [place] [id number] [place] [address] Mar, Tarsal tunnel syndrome of both lower extremities G57.53 [place] [id number] [place] [address] February, [place] [id number] [place] [address] February, [place] [id number] [place] [address] February, Asthma J45.909 [facility] [id number] [place] [address] February, Generalized anxiety disorder F41.1 [place] [id number] [place] [address] February, Hypoxemia R09.02 ; Hyperglycemia R73.9 ; Rheumatoid arthritis M06.9 and Generalized anxiety disorder F41.1 [place] [address] [address] February, [place] [address] [address] Jan, Chronic obstructive pulmonary disease, unspecified J44.9 [place] [address] [address] Jan, Chronic pain syndrome G89.4 [place] [address] [address] Jan, Hypoxemia R09.02 [place] [address] [address] Jan, [place] [address] [address] Jan, Chronic obstructive pulmonary disease, unspecified J44.9 ; Hypoxemia R09.02 ; Other insomnia G47.09 and Left anterior shoulder pain M25.512 [place] [address] [address] Jan, Numbness in feet R20.0 and Neuropathy G62.9 [place] [address] [address] Jan, [place] [address] [address] Dec, Acute pain of left shoulder M25.512 [place] [address] [address] Dec, Acute pain of left shoulder M25.512 [place] [address] [address] Dec, Generalized anxiety disorder F41.1 [place] [address] [address] Dec, Generalized anxiety disorder F41.1 [facility] [address] [address] Nov, ADHD (attention deficit hyperactivity disorder), combined type F90.2 ; Generalized anxiety disorder F41.1 and Persistent depressive disorder F34.1 [facility] [address] [address] Nov, Acute pain of left shoulder M25.512 [facility] [id number] [place] [address] Nov, ADHD (attention deficit hyperactivity disorder), combined type F90.2 ; Generalized anxiety disorder F41.1 and Persistent depressive disorder F34.1 [facility] [id number] [place] [address] Nov, Chronic pain syndrome G89.4 [facility] [id number] [place] [address] Nov, Chronic pain syndrome G89.4 [facility] [id number] [place] [address] Nov, Acute pain of left shoulder M25.512 [facility] [address] [address] Nov, Generalized anxiety disorder F41.1 [facility] [address] [place] [address] Nov, Acute pain of left shoulder M25.512 [facility] [address] [place] [id number] [place] [address] Nov, ADHD (attention deficit hyperactivity disorder), combined type F90.2 ; Generalized anxiety disorder F41.1 and Persistent depressive disorder F34.1 [facility] [address] [address] Nov, Acute pain of left shoulder M25.512 ; Generalized anxiety disorder F41.1 ; Chronic pain syndrome G89.4 ; Hyperinsulinemia E16.1 ; Pain of left foot M79.672 and Pain in right foot M79.671 [place] [id number] [place] [address] Oct, ADHD (attention deficit hyperactivity disorder), combined type F90.2 ; Generalized anxiety disorder F41.1 and Dysthymic disorder F34.1 [place] [id number] [place] [address] Sep, [place] [id number] [place] [address] Sep, [place] [id number] [place] [address] Sep, Routine gynecological examination V72.31 ; Cervical cancer screening Z12.4 ; Breast cancer screening Z12.39 ; Colon cancer screening Z12.11 ; Hypokalemia E87.6 ; Herpes simplex type 1 infection B00.9 and Abscess of right axilla L02.411 [place] [id number] [place] [address] Sep, [place] [id number] [place] [address] Sep, ADHD (attention deficit hyperactivity disorder), combined type F90.2 ; Generalized anxiety disorder F41.1 and Dysthymic disorder F34.1 [place] [id number] [place] [address] Aug, [place] [id number] [place] [address] Aug, [place] [id number] [place] [address] Aug, Generalized anxiety disorder F41.1 [place] [id number] [place] [address] Aug, ADHD (attention deficit hyperactivity disorder), combined type F90.2 ; Generalized anxiety disorder F41.1 and Dysthymic disorder F34.1 [place] [id number] [place] [address] Jul, Chronic pain syndrome G89.4 ; Hypertension I10 ; Hypokalemia E87.6 ; Asthma J45.909 and Nausea R11.0 [place] [address] [address] Jul, [place] [address] [address] Jul, Asthma J45.909 [place] [address] [address] Jul, ADHD (attention deficit hyperactivity disorder), combined type F90.2 ; Generalized anxiety disorder F41.1 and Dysthymic disorder F34.1 [place] [address] [address] Jul, [place] [address] [address] Jul, Hypertension I10 ; Arteriosclerotic coronary artery disease I25.10 ; Mixed hyperlipidemia E78.2 ; Other snf (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 and Hyperglycemia R73.9 [place] [id number] [place] [address] 16 Jun, 2016 Hypokalemia E87.6 and Hyperglycemia R73.9 [place] [id number] [place] [address] 14 Jun, 2016 [place] [address] [address] 13 Jun, 2016 Abnormal kidney function N28.9 [place] [id number] [place] [address] 09 Jun, 2016 [place] [id number] [place] [address] Jun, ADHD (attention deficit hyperactivity disorder), combined type F90.2 ; Generalized anxiety disorder F41.1 and Dysthymic disorder F34.1 [place] [address] [address] Jun, Generalized anxiety disorder F41.1 and Dysthymic disorder F34.1 [place] [address] [address] Jun, Hypokalemia E87.6 [place] [address] [address] May, Hypokalemia E87.6 ; Vertigo R42 and Hyperinsulinemia E16.1 [place] [address] [address] May, [place] [address] [address] May, Abnormal kidney function N28.9 ; Hyperinsulinemia E16.1 and Nausea R11.0 [place] [address] [address] May, Hypokalemia E87.6 ; Nausea R11.0 ; Epigastric pain R10.13 ; Dehydration E86.0 ; Diaphoresis R61 and Right arm pain M79.601 [place] [address] [address] May, [place] [address] [address] May, Hypokalemia E87.6 [place] [address] [address] May, Hypokalemia E87.6 [place] [id number] [place] [address] Apr, [place] [address] [address] Apr, ADHD (attention deficit hyperactivity disorder), combined type F90.2 ; Generalized anxiety disorder F41.1 and Dysthymic disorder F34.1 [place] [id number] [place] [address] Apr, Right arm pain M79.601 and Hyperinsulinemia E16.1 [place] [id number] [place] [address] Mar, [place] [id number] [place] [address] Mar, [place] [id number] [place] [address] Mar, Hyperinsulinemia E16.1 ; Hyperlipidemia, unspecified hyperlipidemia type E78.5 ; Central venous catheter in place Z78.9 ; Generalized anxiety disorder F41.1 and Urinary tract infection, site not specified N39.0 [place] [id number] [place] [id number] Mar, ADHD (attention deficit hyperactivity disorder), combined type F90.2 ; Generalized anxiety disorder F41.1 and Dysthymic disorder F34.1 [place] [id number] [place] [id number] February, ADHD (attention deficit hyperactivity disorder), combined type F90.2 ; Generalized anxiety disorder F41.1 and Dysthymic disorder F34.1 [place] [id number] [place] [phone] February, [place] [id number] [place] [id number] February, [place] [address] [id number] [place] [id number] February, Hypertension I10 and Weight gain R63.5 [place] [address] [id number] [place] [phone] February, Major depressive disorder, recurrent, moderate F33.1 and Generalized anxiety disorder F41.1 [facility] [id number] [place] [id number] February, ADHD (attention deficit hyperactivity disorder), combined type F90.2 ; Generalized anxiety disorder F41.1 and Dysthymic disorder F34.1 [facility] [id number] [place] [id number] February, [facility] [id number] [place] [id number] February, Asthma J45.909 ; Weight gain R63.5 ; Hypertension I10 ; Rheumatoid arthritis M06.9 and Chronic pain syndrome G89.4 [facility] [id number] [place] [id number] Jan, ADHD (attention deficit hyperactivity disorder), combined type F90.2 ; Generalized anxiety disorder F41.1 and Dysthymic disorder F34.1 [facility] [id number] [place] [address] Dec, ADHD (attention deficit hyperactivity disorder), combined type F90.2 ; Generalized anxiety disorder F41.1 and Dysthymic disorder F34.1 [facility] [id number] [place] [address] Dec, [facility] [id number] [place] [address] Nov, [facility] [id number] [place] [address] Nov, [facility] [id number] [place] [address] Nov, [facility] [id number] [place] [address] Nov, [facility] [id number] [place] [address] Oct, [facility] [id number] [place] [address] Oct, [facility] [address] [address] Oct, [facility] [address] [address] Sep, [facility] [address] [address] Sep, [facility] [id number] [place] [address] Sep, Agoraphobia with panic disorder F40.01 ; Attention-deficit hyperactivity disorder, combined type F90.2 and Dysthymic disorder F34.1 [facility] [address] [address] Aug, [facility] [address] [address] Aug, [facility] [address] [address] Aug, [facility] [address] [address] Aug, Dysthymic disorder F34.1 ; Generalized anxiety disorder F41.1 and ADHD (attention deficit hyperactivity disorder), combined type F90.2 [facility] [id number] [address] Aug, ADHD (attention deficit hyperactivity disorder), combined type F90.2 ; Generalized anxiety disorder F41.1 and Dysthymic disorder F34.1 [facility] [address] [address] Jul, Urinary tract infection, site not specified N39.0 ; Hypotension, unspecified I95.9 and Breast cancer screening Z12.39 [facility] [address] [address] Jul, [facility] [id number] [place] [address] Jul, [facility] [id number] [place] [address] Jul, Urinary tract infection, site not specified N39.0 ; Nausea R11.0 ; Gastroenteritis K52.9 ; Renal failure N19 and Other hypotension I95.89 [facility] [address] [address] Jul, [facility] [address] [address] Jul, [facility] [address] [address] Jul, [facility] [address] [address] Jun, [facility] [address] [address] Jun, Major depression in partial remission 296.25 ; Generalized anxiety disorder 300.02 and ADHD, predominantly inattentive type 314.01 [address] [address] May, [facility] [id number] [place] [address] Apr, Major depressive disorder, recurrent episode, severe, without mention of psychotic behavior 296.33 ; Agoraphobia with panic disorder 300.21 and Generalized anxiety disorder 300.02 [facility] [id number] [place] [address] Apr, ADHD (attention deficit hyperactivity disorder), combined type 314.01 ; Generalized anxiety disorder 300.02 and Dysthymic disorder 300.4 [facility] [address] [address] Apr, CAD (coronary artery disease) 414.00 ; HTN (hypertension) 401.9 and Tobacco use 305.[address] [place] [address] Apr, [facility] [id number] [place] [address] Mar, ADHD (attention deficit hyperactivity disorder), combined type 314.01 ; Generalized anxiety disorder 300.02 ; Dysthymic disorder 300.4 ; No condition on [place] II V71.09 ; Rheumatoid arthritis 714.0 ; Incontinence 788.30 ; Irritable bowel syndrome 564.1 ; Osteoporosis 733.00 and Chronic pain 338.29 [facility] [id number] [place] [address] Mar, Agoraphobia with panic disorder 300.21 and Major depressive disorder, recurrent episode, moderate 296.32 [facility] [id number] [place] [address] Mar, [facility] [id number] [place] [address] February, [facility] [id number] [place] [address] February, Agoraphobia with panic disorder 300.21 and Major depressive disorder, recurrent episode, moderate 296.32 [facility] [id number] [place] [address] February, [facility] [id number] [address] Jan, [facility] [id number] [place] [address] Jan, [facility] [id number] [place] [address] Dec, [facility] [id number] [place] [address] Dec, [facility] [id number] [place] [address] Dec, [facility] [address] [place] [address] Dec, [facility] [place] [facility] [address] [id number] [place] [address] Dec, [facility] [place] [facility] [address] [id number] [place] [address] Dec, [facility] [place] [facility] [address] [id number] [place] [address] Nov, 2014 [facility] [place] [facility] [address] [id number] [place] [address] Nov, [facility] [place] [facility] [address] [id number] [place] [address] Nov, 2014 [facility] [place] [facility] [address] [id number] [place] [address] Nov, [facility] [place] [facility] [address] [id number] [place] [address] Nov, [facility] [place] [facility] [address] [id number] [place] [address] Nov, [facility] [place] [facility] [address] [id number] [place] [address] Nov, [facility] [place] [facility] [address] [facility] [id number] [place] [address] Nov, [facility] [place] [facility] [address] [id number] [place] [address] Oct, [facility] [place] [facility] [address] [id number] [place] [address] Oct, [facility] [place] [facility] [address] [id number] [place] [address] Oct, [facility] [place] [facility] [address] [id number] [place] [address] Oct, [facility] [place] [facility] [address] [facility] [id number] [place] [address] Oct, [facility] [place] [facility] [address] [id number] [place] [address] Oct, [facility] [place] [facility] [address] [id number] [place] [address] Sep, [facility] [place] [facility] [address] [id number] [place] [address] Sep, [facility] [place] [facility] [address] [id number] [place] [address] Sep, [facility] [place] [facility] [address] [id number] [place] [address] Sep, [facility] [place] [facility] [address] [id number] [place] [address] Sep, [facility] [place] [facility] [address] [id number] [place] [address] Sep, [facility] [place] [facility] [address] [id number] [place] [address] Sep, [facility] [place] [facility] [address] [id number] [place] [address] Aug, [facility] [place] [facility] [address] [id number] [place] [address] Aug, [facility] [place] [facility] [address] [id number] [place] [address] Aug, [facility] [place] [facility] [address] [id number] [address] Aug, [facility] [place] [facility] [address] [id number] [place] [address] Aug, [facility] [place] [facility] [address] [id number] [place] [address] Aug, [facility] [place] [facility] [address] [id number] [place] [address] 17 Jul, 2014 [facility] [place] [facility] [address] [id number] [place] [address] Jul, [facility] [place] [facility] [address] [id number] [place] [address] Jul, [facility] [place] [facility] [address] [id number] [place] [address] Jul, [facility] [place] [facility] [address] [id number] [place] [address] Jul, [facility] [place] [facility] [address] [id number] [place] [address] Jul, [facility] [place] [facility] [address] [id number] [place] [address] Jun, [facility] [place] [facility] [address] [id number] [place] [address] Jun, [facility] [place] [facility] [address] [id number] [place] [address] May, [facility] [place] [facility] [address] [id number] [place] [address] May, [facility] [place] [facility] [address] [id number] [place] [address] Apr, [facility] [place] [facility] [address] [facility] [id number] [place] [address] Apr, [facility] [place] [facility] [address] [id number] [place] [address] Apr, [facility] [place] [facility] [address] [id number] [place] [address] Apr, [facility] [place] [facility] [address] [id number] [place] [address] Mar, [facility] [place] [facility] [address] [id number] [place] [address] Mar, [facility] [place] [facility] [address] [id number] [place] [address] Mar, [facility] [place] [facility] [address] [id number] [place] [address] Mar, [facility] [place] [facility] [address] [id number] [place] [address] February, [facility] [place] [facility] [address] [id number] [place] [address] February, [facility] [place] [facility] [address] [id number] [place] [address] February, [facility] [place] [facility] [address] [id number] [place] [address] February, [facility] [place] [facility] [address] [id number] [place] [address] February, [facility] [place] [facility] [address] [id number] [place] [address] February, [facility] [place] [facility] [address] [id number] [place] [address] Jan, [facility] [place] [facility] [address] [id number] [place] [address] Jan, [facility] [place] [facility] [address] [id number] [place] [address] Dec, [facility] [place] [facility] [address] [id number] [place] [address] Dec, [facility] [place] [facility] [address] [id number] [place] [address] Nov, [facility] [place] [facility] [address] [id number] [place] [address] Nov, [facility] [place] [facility] [address] [id number] [place] [address] Oct, [facility] [place] [facility] [address] [id number] [place] [address] Oct, [facility] [place] [facility] [address] [id number] [place] [address] Oct, [facility] [address] [id number] [place] [address] Oct, [facility] [place] [facility] [address] [id number] [place] [address] Sep, [facility] [place] [facility] [address] [id number] [place] [address] Sep, [facility] [place] [facility] [address] [id number] [place] [address] Sep, [facility] [place] [facility] [address] [id number] [place] [address] Sep, [facility] [place] [facility] [address] [id number] [place] [address] Sep, [facility] [place] [facility] [address] [id number] [place] [address] Sep, [facility] [place] [facility] [address] [id number] [place] [address] Sep, [facility] [place] [facility] [address] [id number] [place] [address] Sep, [facility] [place] [facility] [address] [id number] [place] [address] Aug, [facility] [place] [facility] [address] [id number] [address] Aug, [facility] [place] [facility] [address] [id number] [address] Aug, [facility] [place] [facility] [address] [id number] [place] [address] Aug, [facility] [place] [facility] [address] [id number] [place] [address] Aug, [facility] [place] [facility] [address] [id number] [place] [address] Aug, [facility] [place] [facility] [address] [id number] [place] [address] Aug, [facility] [address] [id number] [place] [address] Aug, [facility] [address] [id number] [place] [address] Aug, [facility] [address] [id number] [place] [address] Jul, [facility] [address] [id number] [place] [address] Jun, [facility] [address] [id number] [place] [address] May, [facility] [address] [id number] [place] [address] May, [facility] [address] [id number] [place] [address] May, [facility] [address] [id number] [place] [address] Apr, [facility] [address] [id number] [place] [address] Mar, [facility] [address] [id number] [place] [address] February, [facility] [address] [id number] [place] [address] Oct, [facility] [address] [id number] [place] [address] Oct, [facility] [place] [facility] [address] [id number] [place] [address] Oct, [facility] [place] [facility] [address] [id number] [place] [address] Oct, [facility] [address] [id number] [place] [address] Oct, [facility] [place] [facility] [address] [id number] [place] [address] Oct, [facility] [place] [facility] [address] [id number] [place] [address] Sep, [facility] [place] [facility] [address] [id number] [place] [address] Sep, [facility] [place] [facility] [address] [id number] [place] [address] Aug, [facility] [place] [facility] [address] [id number] [place] [address] Aug, [facility] [place] [facility] [address] [id number] [place] [address] Jul, [facility] [place] [facility] [address] [id number] [place] [address] Jul, [facility] [place] [facility] [address] [id number] [place] [address] Jul, [facility] [place] [facility] [address] [id number] [place] [address] Jul, [facility] [place] [facility] [address] [id number] [address] Jul, [facility] [place] [facility] [address] [id number] [address] Jul, [facility] [place] [facility] [address] [id number] [address] Jul, [facility] [place] [facility] [address] [id number] [address] Jul, [facility] [place] [facility] [address] [id number] [address] 16 Jun, 2012 [facility] [place] [facility] [address] [id number] [address] 03 Jun, 2012 [facility] [place] [facility] [address] [id number] [address] May, [facility] [place] [facility] [address] [id number] [place] [address] Apr, [facility] [place] [facility] [address] [id number] [place] [address] Mar, [facility] [place] [facility] [address] [id number] [place] [address] Mar, [facility] [place] [facility] [address] [id number] [place] [address] Mar, [facility] [place] [facility] [address] [id number] [place] [address] Mar, [facility] [place] [facility] [address] [id number] [place] [address] Jan, [facility] [place] [facility] [address] [id number] [place] [address] Nov, [facility] [place] [facility] [address] [id number] [place] [address] Nov, [facility] [place] [facility] [address] [id number] [place] [address] Nov, [facility] [place] [facility] [id number] [place] [address] Oct, [facility] [place] [facility] [address] [id number] [place] [address] Sep, [facility] [place] [facility] [address] [id number] [place] [address] Sep, [facility] [place] [facility] [address] [id number] [place] [address] Aug, [facility] [place] [facility] [address] [id number] [place] [address] Aug, [facility] [place] [facility] [address] [id number] [place] [address] Aug, [facility] [id number] [address] Aug, [facility] [id number] [address] Jul, [facility] [address] [address] May, [facility] [id number] [place] [address] Jan, [facility] [id number] [place] [address] Nov, [facility] [id number] [place] [address] Apr, [facility] [address] [address] Dec, [facility] [id number] [address] Nov, IMMUNIZATIONS No Known Immunizations SOCIAL HISTORY Never Assessed REASON FOR VISIT PLAN OF CARE VITAL SIGNS Height 67 in 2014-11-27 Weight 24.56 lbs 2014-11-27 Temperature 97.7 degrees Fahrenheit 2014-11-27 Heart Rate 84 bpm 2014-11-27 Respiratory Rate 22 2014-11-27 Blood pressure systolic 142 mmHg 2014-11-27 Blood pressure diastolic 76 mmHg 2014-11-27 MEDICATIONS Unknown Medications RESULTS No Results PROCEDURES Procedure Date Ordered Result Body Site URINALYSIS, AUTO, W/O SCOPE Nov 27, 2014 INSTRUCTIONS MEDICATIONS ADMINISTERED No Known Medications MEDICAL (GENERAL) HISTORY Type Description Date Medical History Cardiovascular kwztykmj-QXN-Eafetpkd, non-obstructive per (01/2011) Dr. Mendoza Medical History Stress test 03/07/13-Dr. Kelly Dietrich normal Medical History Hypertension Medical History Asthma Medical History Gastrointestinal Disorder--IBS, GERD, Hx of fatty liver Medical History Hernia 1979 Medical History Cervical dysplasia 02/16-Pap LGSIL/Baxley-mild dysplasia Medical History Hyperlipidemia Medical History Rheumatoid [...]
--- OUTSIDE RECORDS SUMMARY | 2019-05-22 07:28 | XMS REPORT ---
Author Author LORI SNOWDEN [facility] Address [address] [place] [address] Care Team Providers Care Halal Butcher Name Role Phone LORI SNOWDEN Unavailable PROBLEMS Type Condition ICD9-CM Code KZP61-OD Code Onset Dates Condition Status SNOMED Code Problem Hemiparesis of left nondominant side as late effect of cerebral infarction I69.354 Active 804443624 Problem Generalized anxiety disorder F41.1 Active 91379100 Problem Morbid (severe) obesity due to excess calories E66.01 Active 764853319 Problem Chronic pain syndrome G89.4 Active 023585720 Problem ADHD (attention deficit hyperactivity disorder), combined type F90.2 Active 97598583 Problem Asthma J45.909 Active 247446305 Problem Rheumatoid arthritis M06.9 Active 58247142 Problem Anxiety F41.9 Active 18769588 Problem Gastroesophageal reflux disease with esophagitis K21.0 Active 449353156 Problem Neuropathy G62.9 Active 555452545 Problem Hyperinsulinemia E16.1 Active 60545193 Problem Obstructive sleep apnea G47.33 Active 78299319 Problem Other insomnia G47.09 Active 456064475 Problem Cerebrovascular accident (CVA), unspecified mechanism I63.9 Active 061360025 Problem 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 accountant (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 Active 918617147 Problem Sleep apnea in adult G47.30 Active 83974869 Problem Dysthymic disorder F34.1 Active 62293353 Problem Irritable bowel syndrome with diarrhea K58.0 Active 453597157 Problem Panic attacks F41.0 Active 094482789 Problem Mild episode of recurrent major depressive disorder F33.0 Active 207155777 Problem Chronic obstructive pulmonary disease J44.9 Active 02723471 Problem Arteriosclerotic coronary artery disease I25.10 Active 04393077 Problem Hemiplegia affecting left nondominant side G81.94 Active Problem Hypertension I10 Active 74067083 Problem Mixed hyperlipidemia E78.2 Active 478617729 Problem Seasonal allergies J30.2 Active 954987888 Problem Primary insomnia F51.01 Active 1810821 Problem Paroxysmal atrial fibrillation I48.0 Active 970849348 Problem Unsteady gait R26.81 Active 54483840 ALLERGIES No Information ENCOUNTERS Encounter Location Date Diagnosis [place] [id number] [place] [address] May, [place] [id number] [place] [address] Apr, [place] [id number] [place] [address] Mar, [place] [address] [address] Mar, [place] [id number] [place] [id number] Mar, [place] [address] [address] Mar, [place] [id number] [place] [address] February, Generalized anxiety disorder F41.1 and Mild episode of recurrent major depressive disorder F33.0 [place] [id number] [place] [address] Jan, [place] [id number] [place] [id number] Jan, Herpes zoster without complication B02.9 [place] [id number] [place] [address] 15 Jan, 2019 Other insomnia G47.09 ; Hypertension I10 ; Rheumatoid arthritis M06.9 ; Mild episode of recurrent major depressive disorder F33.0 ; Breast cancer screening Z12.39 ; Arteriosclerotic coronary artery disease I25.10 ; Morbid (severe) obesity due to excess calories E66.01 and Hemiparesis of left nondominant side as late effect of cerebral infarction I69.354 [place] [id number] [place] [address] Jan, Asthma J45.909 and Other insomnia G47.09 [facility] [id number] [place] [address] Jan, [facility] [id number] [place] [address] Dec, Generalized anxiety disorder F41.1 and Mild episode of recurrent major depressive disorder F33.0 [facility] [id number] [place] [address] Dec, [facility] [id number] [place] [address] Dec, [facility] [id number] [place] [address] Dec, [address] [id number] Nov, Viral upper respiratory tract infection J06.9 [facility] [address] [address] Nov, [facility] [id number] [place] [address] Oct, [facility] [address] [address] Sep, [facility] [id number] [place] [address] Sep, [facility] [id number] [place] [address] Sep, [facility] [id number] [place] [address] Sep, Orthostatic hypotension I95.1 ; Shortness of breath R06.02 ; Right foot pain M79.671 and Morbid (severe) obesity due to excess calories E66.01 [facility] [address] [place] [address] Aug, [facility] [address] [facility] [id number], [place] [address] Aug, [facility] [address] [facility] [id number], [place] [address] Aug, [facility] [address] [facility] [id number], [place] [address] Aug, [facility] [address] [facility] [id number], [place] [address] Aug, [facility] [address] [facility] [id number], [place] [address] Jul, [facility] [address] [facility] [id number], [place] [address] Jul, [facility] [address] [facility] [id number], [place] [address] Jul, [facility] [address] [facility] [id number], [place] [address] Jul, [facility] [address] [facility] [id number], [place] [address] Jul, [facility] [address] [facility] [id number], [place] [address] Jul, [email or web address] [address] [place] [place] [id number] Jul, Hemiplegia affecting left nondominant side G81.94 ; Chronic obstructive pulmonary disease J44.9 and Weakness R53.1 [facility] [address] [facility] [id number], [place] [address] Jul, [email or web address] [address] [id number] Jul, Weakness R53.1 ; Paroxysmal atrial fibrillation I48.0 and Unsteady gait R26.81 [facility] [address] [facility] [id number], [place] [address] Jul, Tobacco abuse Z72.0 [email or web address] [address] [place] [id number] Jun, History of acute respiratory failure Z87.09 ; Weight gain R63.5 and Tobacco abuse Z72.0 [place] [address] [place] [address] Jun, [facility] [id number] [place] [address] May, Primary insomnia F51.01 [facility] [id number] [place] [address] May, Mild episode of recurrent major depressive disorder F33.0 [place] [id number] [place] [address] May, [place] [id number] [place] [address] May, Chronic obstructive pulmonary disease, unspecified COPD type J44.9 ; Primary insomnia F51.01 ; Fatigue, unspecified type R53.83 and Weight gain R63.5 [place] [address] [place] [address] May, Thrush B37.0 [place] [id number] [place] [address] May, Mild episode of recurrent major depressive disorder F33.0 and Generalized anxiety disorder F41.1 [place] [address] [place] [address] May, Thrush B37.0 [place] [address] [place] [address] Apr, Cough R05 [facility] [id number] [place] [address] Mar, Mild episode of recurrent major depressive disorder F33.0 [facility] [address] [address] Mar, Mild episode of recurrent major depressive disorder F33.0 and Generalized anxiety disorder F41.1 [facility] [id number] [place] [address] Mar, Seasonal allergies J30.2 [facility] [id number] [place] [address] Mar, Seasonal allergies J30.2 [facility] [id number] [place] [address] February, Generalized anxiety disorder F41.1 [facility] [id number] [place] [address] February, Cough R05 and Seasonal allergies J30.2 [facility] [id number] [place] [address] February, Generalized anxiety disorder F41.1 and Mild episode of recurrent major depressive disorder F33.0 [facility] [id number] [place] [address] February, Other chcf (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 ; Anxiety F41.9 ; Panic attacks F41.0 and Irritable bowel syndrome with diarrhea K58.0 [facility] [id number] [place] [address] February, [facility] [id number] [place] [address] Jan, Mixed hyperlipidemia E78.2 [facility] [id number] [place] [address] Jan, [facility] [id number] [place] [address] Jan, [facility] [address] [address] Jan, [facility] [id number] [place] [address] Jan, [facility] [address] [place] [address] Dec, [facility] [id number] [place] [address] Dec, [facility] [id number] [place] [address] Dec, [facility] [id number] [place] [address] Nov, Dysthymic disorder F34.1 [facility] [id number] [place] [address] Oct, [facility] [address] [address] Oct, [facility] [id number] [place] [address] Oct, [facility] [address] [address] Oct, Diarrhea, unspecified type R19.7 and Dysuria R30.0 [facility] [id number] [place] [address] Oct, [facility] [id number] [place] [address] Sep, [facility] [id number] [place] [address] Sep, [facility] [id number] [place] [address] Sep, Anxiety F41.9 [facility] [id number] [place] [address] Sep, Cerebrovascular accident (CVA), unspecified mechanism I63.9 ; Mixed hyperlipidemia E78.2 ; Gastroesophageal reflux disease with esophagitis K21.0 and Anxiety F41.9 [facility] [id number] [place] [address] Sep, [place] [id number] [place] [address] Aug, Chronic obstructive pulmonary disease, unspecified J44.9 ; Asthma J45.909 ; Nausea R11.0 ; Dysthymic disorder F34.1 ; Cerebrovascular accident (CVA), unspecified mechanism I63.9 and Rheumatoid arthritis M06.[address] [address] Aug, Nausea R11.0 ; Encounter for immunization Z23 ; Sleep apnea in adult G47.30 ; Rheumatoid arthritis involving multiple sites, unspecified rheumatoid factor presence M06.9 ; Generalized anxiety disorder F41.1 ; Dysthymic disorder F34.1 and Asthma J45.[address] [address] Jul, [address] [address] May, ADHD (attention deficit hyperactivity disorder), combined type F90.2 ; Generalized anxiety disorder F41.1 and Persistent depressive disorder F34.[address] [address] May, Cerebrovascular accident (CVA), unspecified mechanism I63.[address] [address] Apr, Mixed hyperlipidemia E78.2 and Cerebrovascular accident (CVA), unspecified mechanism I63.9 [place] [id number] [place] [address] Apr, Generalized anxiety disorder F41.[address] [address] Apr, Bronchitis J40 and Tobacco use Z72.[address] [address] Apr, Mixed hyperlipidemia E78.[id number] [place] [address] Apr, Other chcf (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 [facility] [id number] [place] [address] Apr, [place] [id number] [place] [address] Apr, Generalized anxiety disorder F41.1 [place] [address] [address] Apr, Obstructive sleep apnea G47.33 and Hyperinsulinemia E16.1 [place] [address] [address] Apr, ADHD (attention deficit hyperactivity disorder), combined type F90.2 ; Generalized anxiety disorder F41.1 and Persistent depressive disorder F34.1 [place] [id number] [place] [address] Mar, [place] [id number] [place] [address] Mar, Generalized anxiety disorder F41.1 [place] [id number] [place] [address] Mar, Tarsal tunnel syndrome of both lower extremities G57.53 [place] [id number] [place] [address] February, [place] [id number] [place] [address] February, [place] [id number] [place] [address] February, Asthma J45.909 [facility] [id number] [place] [address] February, Generalized anxiety disorder F41.1 [place] [id number] [place] [address] February, Hypoxemia R09.02 ; Hyperglycemia R73.9 ; Rheumatoid arthritis M06.9 and Generalized anxiety disorder F41.1 [place] [address] [address] February, [place] [address] [address] Jan, Chronic obstructive pulmonary disease, unspecified J44.9 [place] [address] [address] Jan, Chronic pain syndrome G89.4 [place] [address] [address] Jan, Hypoxemia R09.02 [place] [address] [address] Jan, [place] [address] [address] Jan, Chronic obstructive pulmonary disease, unspecified J44.9 ; Hypoxemia R09.02 ; Other insomnia G47.09 and Left anterior shoulder pain M25.512 [place] [address] [address] Jan, Numbness in feet R20.0 and Neuropathy G62.9 [place] [address] [address] Jan, [place] [address] [address] Dec, Acute pain of left shoulder M25.512 [place] [address] [address] Dec, Acute pain of left shoulder M25.512 [place] [address] [address] Dec, Generalized anxiety disorder F41.1 [place] [address] [address] Dec, Generalized anxiety disorder F41.1 [facility] [address], [place] [address] Nov, ADHD (attention deficit hyperactivity disorder), combined type F90.2 ; Generalized anxiety disorder F41.1 and Persistent depressive disorder F34.1 [facility] [address], [place] [address] Nov, Acute pain of left shoulder M25.512 [facility] [id number] [place] [address] Nov, ADHD (attention deficit hyperactivity disorder), combined type F90.2 ; Generalized anxiety disorder F41.1 and Persistent depressive disorder F34.1 [facility] [address] [place] [address] Nov, Chronic pain syndrome G89.4 [facility] [id number] [place] [address] Nov, Chronic pain syndrome G89.4 [facility] [address] [place] [address] Nov, Acute pain of left shoulder M25.512 [facility] [address], [place] [address] Nov, Generalized anxiety disorder F41.1 [facility] [address] [place] [address] Nov, Acute pain of left shoulder M25.512 [facility] [address] [place] [id number] [place] [address] Nov, ADHD (attention deficit hyperactivity disorder), combined type F90.2 ; Generalized anxiety disorder F41.1 and Persistent depressive disorder F34.1 [facility] [address], [place] [address] Nov, Acute pain of left shoulder M25.512 ; Generalized anxiety disorder F41.1 ; Chronic pain syndrome G89.4 ; Hyperinsulinemia E16.1 ; Pain of left foot M79.672 and Pain in right foot M79.671 [place] [id number] [place] [address] Oct, ADHD (attention deficit hyperactivity disorder), combined type F90.2 ; Generalized anxiety disorder F41.1 and Dysthymic disorder F34.1 [place] [id number] [place] [address] Sep, [place] [id number] [place] [address] Sep, [place] [id number] [place] [address] Sep, Routine gynecological examination V72.31 ; Cervical cancer screening Z12.4 ; Breast cancer screening Z12.39 ; Colon cancer screening Z12.11 ; Hypokalemia E87.6 ; Herpes simplex type 1 infection B00.9 and Abscess of right axilla L02.411 [place] [id number] [place] [address] Sep, [place] [address] [id number] [place] [address] Sep, ADHD (attention deficit hyperactivity disorder), combined type F90.2 ; Generalized anxiety disorder F41.1 and Dysthymic disorder F34.1 [place] [id number] [place] [address] Aug, [place] [id number] [place] [address] Aug, [place] [id number] [place] [address] Aug, Generalized anxiety disorder F41.1 [place] [address] [id number] [place] [address] Aug, ADHD (attention deficit hyperactivity disorder), combined type F90.2 ; Generalized anxiety disorder F41.1 and Dysthymic disorder F34.1 [place] [id number] [place] [address] Jul, Chronic pain syndrome G89.4 ; Hypertension I10 ; Hypokalemia E87.6 ; Asthma J45.909 and Nausea R11.0 [place] [address] [address] Jul, [place] [address] [address] Jul, Asthma J45.909 [place] [address] [address] Jul, ADHD (attention deficit hyperactivity disorder), combined type F90.2 ; Generalized anxiety disorder F41.1 and Dysthymic disorder F34.1 [place] [address] [address] Jul, [place] [address] [address] Jul, Hypertension I10 ; Arteriosclerotic coronary artery disease I25.10 ; Mixed hyperlipidemia E78.2 ; Other chcf (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 and Hyperglycemia R73.9 [place] [id number] [place] [address] 16 Jun, 2016 Hypokalemia E87.6 and Hyperglycemia R73.9 [place] [id number] [place] [address] 14 Jun, 2016 [place] [address] [address] 13 Jun, 2016 Abnormal kidney function N28.9 [place] [id number] [place] [address] 09 Jun, 2016 [place] [id number] [place] [address] Jun, ADHD (attention deficit hyperactivity disorder), combined type F90.2 ; Generalized anxiety disorder F41.1 and Dysthymic disorder F34.1 [place] [address] [address] Jun, Generalized anxiety disorder F41.1 and Dysthymic disorder F34.1 [place] [address] [address] Jun, Hypokalemia E87.6 [place] [address] [address] May, Hypokalemia E87.6 ; Vertigo R42 and Hyperinsulinemia E16.1 [place] [address] [address] May, [place] [address] [address] May, Abnormal kidney function N28.9 ; Hyperinsulinemia E16.1 and Nausea R11.0 [place] [address] [address] May, Hypokalemia E87.6 ; Nausea R11.0 ; Epigastric pain R10.13 ; Dehydration E86.0 ; Diaphoresis R61 and Right arm pain M79.601 [place] [address] [address] May, [place] [address] [address] May, Hypokalemia E87.6 [place] [address] [address] May, Hypokalemia E87.6 [place] [id number] [place] [address] Apr, [place] [address] [address] Apr, ADHD (attention deficit hyperactivity disorder), combined type F90.2 ; Generalized anxiety disorder F41.1 and Dysthymic disorder F34.1 [place] [id number] [place] [address] Apr, Right arm pain M79.601 and Hyperinsulinemia E16.1 [place] [id number] [place] [address] Mar, [place] [id number] [place] [address] Mar, [place] [id number] [place] [address] Mar, Hyperinsulinemia E16.1 ; Hyperlipidemia, unspecified hyperlipidemia type E78.5 ; Central venous catheter in place Z78.9 ; Generalized anxiety disorder F41.1 and Urinary tract infection, site not specified N39.0 [place] [id number] [place] [phone] Mar, ADHD (attention deficit hyperactivity disorder), combined type F90.2 ; Generalized anxiety disorder F41.1 and Dysthymic disorder F34.1 [place] [address] [place] [id number] [place] [phone] February, ADHD (attention deficit hyperactivity disorder), combined type F90.2 ; Generalized anxiety disorder F41.1 and Dysthymic disorder F34.1 [place] [id number] [place] [id number] February, [place] [address] [place] [id number] [place] [id number] February, [place] [address] [place] [id number] [place] [phone] February, Hypertension I10 and Weight gain R63.5 [place] [address] [place] [id number] [place] [phone] February, Major depressive disorder, recurrent, moderate F33.1 and Generalized anxiety disorder F41.1 [facility] [id number] [place] [id number] February, ADHD (attention deficit hyperactivity disorder), combined type F90.2 ; Generalized anxiety disorder F41.1 and Dysthymic disorder F34.1 [facility] [id number] [place] [phone] February, [facility] [id number] [place] [phone] February, Asthma J45.909 ; Weight gain R63.5 ; Hypertension I10 ; Rheumatoid arthritis M06.9 and Chronic pain syndrome G89.4 [facility] [id number] [place] [address] Jan, ADHD (attention deficit hyperactivity disorder), combined type F90.2 ; Generalized anxiety disorder F41.1 and Dysthymic disorder F34.1 [facility] [id number] [place] [address] Dec, ADHD (attention deficit hyperactivity disorder), combined type F90.2 ; Generalized anxiety disorder F41.1 and Dysthymic disorder F34.1 [facility] [id number] [place] [address] Dec, [facility] [id number] [place] [address] Nov, [facility] [id number] [place] [address] Nov, [facility] [id number] [place] [address] Nov, [facility] [id number] [place] [address] Nov, [facility] [id number] [place] [address] Oct, [facility] [id number] [place] [address] Oct, [facility] [address], [place] [address] Oct, [facility] [address] [address] Sep, [facility] [address], [place] [address] Sep, [facility] [id number] [place] [address] Sep, Agoraphobia with panic disorder F40.01 ; Attention-deficit hyperactivity disorder, combined type F90.2 and Dysthymic disorder F34.1 [facility] [address], [place] [address] Aug, [facility] [address], [place] [address] Aug, [facility] [address], [place] [address] Aug, [facility] [address], [place] [address] Aug, Dysthymic disorder F34.1 ; Generalized anxiety disorder F41.1 and ADHD (attention deficit hyperactivity disorder), combined type F90.2 [facility] [id number] [address] Aug, ADHD (attention deficit hyperactivity disorder), combined type F90.2 ; Generalized anxiety disorder F41.1 and Dysthymic disorder F34.1 [facility] [address], [place] [address] Jul, Urinary tract infection, site not specified N39.0 ; Hypotension, unspecified I95.9 and Breast cancer screening Z12.39 [facility] [address], [place] [address] Jul, [facility] [id number] [place] [address] Jul, [facility] [id number] [place] [address] Jul, Urinary tract infection, site not specified N39.0 ; Nausea R11.0 ; Gastroenteritis K52.9 ; Renal failure N19 and Other hypotension I95.89 [facility] [address] [address] Jul, [facility] [address] [address] Jul, [facility] [address] [address] Jul, [facility] [address] [address] Jun, [facility] [address] [address] Jun, Major depression in partial remission 296.25 ; Generalized anxiety disorder 300.02 and ADHD, predominantly inattentive type 314.01 [place] [address] [address] May, [facility] [id number] [place] [address] Apr, Major depressive disorder, recurrent episode, severe, without mention of psychotic behavior 296.33 ; Agoraphobia with panic disorder 300.21 and Generalized anxiety disorder 300.02 [facility] [id number] [place] [address] Apr, ADHD (attention deficit hyperactivity disorder), combined type 314.01 ; Generalized anxiety disorder 300.02 and Dysthymic disorder 300.4 [facility] [address] [address] Apr, CAD (coronary artery disease) 414.00 ; HTN (hypertension) 401.9 and Tobacco use 305.[address] [place] [address] Apr, [facility] [id number] [place] [address] Mar, ADHD (attention deficit hyperactivity disorder), combined type 314.01 ; Generalized anxiety disorder 300.02 ; Dysthymic disorder 300.4 ; No condition on [place] V71.09 ; Rheumatoid arthritis 714.0 ; Incontinence 788.30 ; Irritable bowel syndrome 564.1 ; Osteoporosis 733.00 and Chronic pain 338.29 [facility] [id number] [place] [address] Mar, Agoraphobia with panic disorder 300.21 and Major depressive disorder, recurrent episode, moderate 296.32 [facility] [id number] [place] [address] Mar, [facility] [id number] [place] [address] February, [facility] [id number] [place] [address] February, Agoraphobia with panic disorder 300.21 and Major depressive disorder, recurrent episode, moderate 296.32 [facility] [id number] [place] [address] February, [facility] [id number] [address] Jan, [facility] [id number] [place] [address] Jan, [facility] [id number] [place] [address] Dec, [facility] [id number] [place] [address] Dec, [facility] [id number] [place] [address] Dec, [facility] [address] [place] [address] Dec, [facility] [place] [facility] [address] [id number] [place] [address] Dec, [facility] [place] [facility] [address] [id number] [place] [address] Dec, [facility] [place] [facility] [address] [id number] [place] [address] Nov, 2014 [facility] [place] [facility] [address] [id number] [place] [address] Nov, [facility] [place] [facility] [address] [id number] [place] [address] Nov, 2014 [facility] [place] [facility] [address] [id number] [place] [address] Nov, [facility] [place] [facility] [address] [id number] [place] [address] Nov, [facility] [place] [facility] [address] [id number] [place] [address] Nov, [facility] [place] [facility] [address] [id number] [place] [address] Nov, [facility] [place] [facility] [address] [facility] [id number] [place] [address] Nov, [facility] [place] [facility] [address] [id number] [place] [address] Oct, [facility] [place] [facility] [address] [id number] [place] [address] Oct, [facility] [place] [facility] [address] [id number] [place] [address] Oct, [facility] [place] [facility] [address] [id number] [place] [address] Oct, [facility] [place] [facility] [address] [facility] [id number] [place] [address] Oct, [facility] [place] [facility] [address] [id number] [place] [address] Oct, [facility] [place] [facility] [address] [id number] [place] [address] Sep, [facility] [place] [facility] [address] [id number] [place] [address] Sep, [facility] [place] [facility] [address] [id number] [place] [address] Sep, [facility] [place] [facility] [address] [id number] [place] [address] Sep, [facility] [place] [facility] [address] [id number] [place] [address] Sep, [facility] [place] [facility] [address] [id number] [place] [address] Sep, [facility] [place] [facility] [address] [id number] [place] [address] Sep, [facility] [place] [facility] [address] [id number] [place] [address] Aug, [facility] [place] [facility] [address] [id number] [place] [address] Aug, [facility] [place] [facility] [address] [id number] [place] [address] Aug, [facility] [place] [facility] [address] [id number], [place] [address] Aug, [facility] [place] [facility] [address] [id number] [place] [address] Aug, [facility] [place] [facility] [address] [id number] [place] [address] Aug, [facility] [place] [facility] [address] [id number] [place] [address] 17 Jul, 2014 [facility] [place] [facility] [address] [id number] [place] [address] Jul, [facility] [place] [facility] [address] [id number] [place] [address] Jul, [facility] [place] [facility] [address] [id number] [place] [address] Jul, [facility] [place] [facility] [address] [id number] [place] [address] Jul, [facility] [place] [facility] [address] [id number] [place] [address] Jul, [facility] [place] [facility] [address] [id number] [place] [address] Jun, [facility] [place] [facility] [address] [id number] [place] [address] Jun, [facility] [place] [facility] [address] [id number] [place] [address] May, [facility] [place] [facility] [address] [id number] [place] [address] May, [facility] [place] [facility] [address] [id number] [place] [address] Apr, [facility] [place] [facility] [address] [facility] [id number] [place] [address] Apr, [facility] [place] [facility] [address] [id number] [place] [address] Apr, [facility] [place] [facility] [address] [id number] [place] [address] Apr, [facility] [place] [facility] [address] [id number] [place] [address] Mar, [facility] [place] [facility] [address] [id number] [place] [address] Mar, [facility] [place] [facility] [address] [id number] [place] [address] Mar, [facility] [place] [facility] [address] [id number] [place] [address] Mar, [facility] [place] [facility] [address] [id number] [place] [address] February, [facility] [place] [facility] [address] [id number] [place] [address] February, [facility] [place] [facility] [address] [id number] [place] [address] February, [facility] [place] [facility] [address] [id number] [place] [address] February, [facility] [place] [facility] [address] [id number] [place] [address] February, [facility] [place] [facility] [address] [id number] [place] [address] February, [facility] [place] [facility] [address] [id number] [place] [address] Jan, [facility] [place] [facility] [address] [id number] [place] [address] Jan, [facility] [place] [facility] [address] [id number] [place] [address] Dec, [facility] [place] [facility] [address] [id number] [place] [address] Dec, [facility] [place] [facility] [address] [id number] [place] [address] Nov, [facility] [place] [facility] [address] [id number] [place] [address] Nov, [facility] [place] [facility] [address] [id number] [place] [address] Oct, [facility] [place] [facility] [address] [id number] [place] [address] Oct, [facility] [place] [facility] [address] [id number] [place] [address] Oct, [facility] [address] [id number] [place] [address] Oct, [facility] [place] [facility] [address] [id number] [place] [address] Sep, [facility] [place] [facility] [address] [id number] [place] [address] Sep, [facility] [place] [facility] [address] [id number] [place] [address] Sep, [facility] [place] [facility] [address] [id number] [place] [address] Sep, [facility] [place] [facility] [address] [id number] [place] [address] Sep, [facility] [place] [facility] [address] [id number] [place] [address] Sep, [facility] [place] [facility] [address] [id number] [place] [address] Sep, [facility] [place] [facility] [address] [id number] [place] [address] Sep, [facility] [place] [facility] [address] [id number] [place] [address] Aug, [facility] [place] [facility] [address] [id number], [place] [address] Aug, [facility] [place] [facility] [address] [id number], [place] [address] Aug, [facility] [place] [facility] [address] [id number] [place] [address] Aug, [facility] [place] [facility] [address] [id number] [place] [address] Aug, [facility] [place] [facility] [address] [id number] [place] [address] Aug, [facility] [place] [facility] [address] [id number] [place] [address] Aug, [facility] [address] [id number] [place] [address] Aug, [facility] [address] [id number] [place] [address] Aug, [facility] [address] [id number] [place] [address] Jul, [facility] [address] [id number] [place] [address] Jun, [facility] [address] [id number] [place] [address] May, [facility] [address] [id number] [place] [address] May, [facility] [address] [id number] [place] [address] May, [facility] [address] [id number] [place] [address] Apr, [facility] [address] [id number] [place] [address] Mar, [facility] [address] [id number] [place] [address] February, [facility] [address] [id number] [place] [address] Oct, [facility] [address] [id number] [place] [address] Oct, [facility] [place] [facility] [address] [id number] [place] [address] Oct, [facility] [place] [facility] [address] [id number] [place] [address] Oct, [facility] [address] [id number] [place] [address] Oct, [facility] [place] [facility] [address] [id number] [place] [address] Oct, [facility] [place] [facility] [address] [id number] [place] [address] Sep, [facility] [place] [facility] [address] [id number] [place] [address] Sep, [facility] [place] [facility] [address] [id number] [place] [address] Aug, [facility] [place] [facility] [address] [id number] [place] [address] Aug, [facility] [place] [facility] [address] [id number] [place] [address] Jul, [facility] [place] [facility] [address] [id number] [place] [address] Jul, [facility] [place] [facility] [address] [id number] [place] [address] Jul, [facility] [place] [facility] [address] [id number] [place] [address] Jul, [facility] [place] [facility] [address] [id number], [place] [address] Jul, [facility] [place] [facility] [address] [id number], [place] [address] Jul, [facility] [place] [facility] [address] [id number], [place] [address] Jul, [facility] [place] [facility] [address] [id number], [place] [address] Jul, [facility] [place] [facility] [address] [id number], [place] [address] 16 Jun, 2012 [facility] [place] [facility] [address] [id number], [place] [address] 03 Jun, 2012 [facility] [place] [facility] [address] [id number], [place] [address] May, [facility] [place] [facility] [address] [id number] [place] [address] Apr, [facility] [place] [facility] [address] [id number] [place] [address] Mar, [facility] [place] [facility] [address] [id number] [place] [address] Mar, [facility] [place] [facility] [address] [id number] [place] [address] Mar, [facility] [place] [facility] [address] [id number] [place] [address] Mar, [facility] [place] [facility] [address] [id number] [place] [address] Jan, [facility] [place] [facility] [address] [id number] [place] [address] Nov, [facility] [place] [facility] [address] [id number] [place] [address] Nov, [facility] [place] [facility] [address] [id number] [place] [address] Nov, [facility] [place] [facility] [id number] [place] [address] Oct, [facility] [place] [facility] [address] [id number] [place] [address] Sep, [facility] [place] [facility] [address] [id number] [place] [address] Sep, [facility] [place] [facility] [address] [id number] [place] [address] Aug, [facility] [place] [facility] [address] [id number] [place] [address] Aug, [facility] [place] [facility] [address] [id number] [place] [address] Aug, [facility] [address] [id number] [address] Aug, [facility] [address], [place] [address] Jul, [facility] [address], [place] [address] May, [facility] [id number] [place] [address] Jan, [facility] [id number] [place] [address] Nov, [facility] [id number] [place] [address] Apr, [facility] [address], [place] [address] Dec, [facility] [address], [place] [address] Nov, IMMUNIZATIONS No Known Immunizations SOCIAL HISTORY Never Assessed REASON FOR VISIT PLAN OF CARE VITAL SIGNS MEDICATIONS Unknown Medications RESULTS No Results PROCEDURES No Known procedures INSTRUCTIONS MEDICATIONS ADMINISTERED No Known Medications MEDICAL (GENERAL) HISTORY Type Description Date Medical History Cardiovascular ofwrhxvo-JBT-Svbqyezg, non-obstructive per (01/2011) Dr. Mendoza Medical History Stress test 03/07/13-Dr. Kelly Dietrich normal Medical History Hypertension Medical History Asthma Medical History Gastrointestinal Disorder--IBS, GERD, Hx of fatty liver Medical History Hernia 1979 Medical History Cervical dysplasia 02/16-Pap LGSIL/[place]-mild dysplasia Medical History Hyperlipidemia Medical History Rheumatoid [...] Kidney injury 07/10/15-07/11/2015 Hospitalization History Symptomatic Hypokalemia/Nause-[facility]ia [facility] 05/13/16 Hospitalization History Stroke 05/03/2017 Hospitalization History stroke 08/24/2017--09/01/2017
--- OUTSIDE RECORDS SUMMARY | 2019-05-22 07:29 | XMS REPORT ---
Author Author LORI SNOWDEN [facility] Address [address] [place] [address] Care Team Providers Care Practice Or Student Teacher Name Role Phone LORI SNOWDEN Unavailable PROBLEMS Type Condition ICD9-CM Code [id number] Code Onset Dates Condition Status SNOMED Code Problem Hemiparesis of left nondominant side as late effect of cerebral infarction I69.354 Active 227524085 Problem Generalized anxiety disorder F41.1 Active 01248065 Problem Morbid (severe) obesity due to excess calories E66.01 Active 587065668 Problem Chronic pain syndrome G89.4 Active 071838611 Problem ADHD (attention deficit hyperactivity disorder), combined type F90.2 Active 09016857 Problem Asthma J45.909 Active 887253697 Problem Rheumatoid arthritis M06.9 Active 73941351 Problem Anxiety F41.9 Active 04911687 Problem Gastroesophageal reflux disease with esophagitis K21.0 Active 447963040 Problem Neuropathy G62.9 Active 137801134 Problem Hyperinsulinemia E16.1 Active 01263825 Problem Obstructive sleep apnea G47.33 Active 16670395 Problem Other insomnia G47.09 Active 208729026 Problem Cerebrovascular accident (CVA), unspecified mechanism I63.9 Active 707255400 Problem 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 manager (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 Active 962211685 Problem Sleep apnea in adult G47.30 Active 43981268 Problem Dysthymic disorder F34.1 Active 19843189 Problem Irritable bowel syndrome with diarrhea K58.0 Active 059580186 Problem Panic attacks F41.0 Active 455035014 Problem Mild episode of recurrent major depressive disorder F33.0 Active 401195150 Problem Chronic obstructive pulmonary disease J44.9 Active 34178157 Problem Arteriosclerotic coronary artery disease I25.10 Active 12693216 Problem Hemiplegia affecting left nondominant side G81.94 Active Problem Hypertension I10 Active 02168945 Problem Mixed hyperlipidemia E78.2 Active 851708341 Problem Seasonal allergies J30.2 Active 916111328 Problem Primary insomnia F51.01 Active 8410304 Problem Paroxysmal atrial fibrillation I48.0 Active 014310990 Problem Unsteady gait R26.81 Active 87808963 ALLERGIES No Information ENCOUNTERS Encounter Location Date Diagnosis [facility] [id number] [place] [address] May, [facility] [facility] [address] [address] Apr, [facility] [id number] [place] [address] Mar, [place] [id number] [place] [id number] Mar, [facility] [address] [address] Mar, [facility] [address] [address] February, Generalized anxiety disorder F41.1 and Mild episode of recurrent major depressive disorder F33.0 [facility] [id number] [place] [address] Jan, [place] [id number] [place] [phone] Jan, Herpes zoster without complication B02.9 [facility] [id number] [place] [address] Jan, Other insomnia G47.09 ; Hypertension I10 ; Rheumatoid arthritis M06.9 ; Mild episode of recurrent major depressive disorder F33.0 ; Breast cancer screening Z12.39 ; Arteriosclerotic coronary artery disease I25.10 ; Morbid (severe) obesity due to excess calories E66.01 and Hemiparesis of left nondominant side as late effect of cerebral infarction I69.354 [facility] [id number] [place] [address] 08 Jan, 2019 Asthma J45.909 and Other insomnia G47.09 [facility] [place] [address] [address] Jan, [facility] [address] [address] Dec, Generalized anxiety disorder F41.1 and Mild episode of recurrent major depressive disorder F33.0 [facility] [address] [address] Dec, [facility] [address] [place] [address] Dec, [facility] [address] [address] Dec, [address] [id number] Nov, Viral upper respiratory tract infection J06.9 [facility] [address] [place] [address] Nov, [facility] [address] [address] Oct, [facility] [address] [address] Sep, [facility] [address] [address] Sep, [facility] [address] [address] Sep, [facility] [address] [address] Sep, Orthostatic hypotension I95.1 ; Shortness of breath R06.02 ; Right foot pain M79.671 and Morbid (severe) obesity due to excess calories E66.01 [facility] [address] [address] Aug, [facility] [address] [address] Aug, [facility] [id number] [address] Aug, [facility] [address] [facility] [id number], [place] [address] Aug, [facility] [address] [facility] [id number], [place] [address] Aug, [facility] [address] [facility] [id number], [place] [address] Jul, [facility] [address] [facility] [id number], [place] [address] Jul, [facility] [address] [facility] [id number], [place] [address] Jul, [facility] [address] [address] Jul, [facility] [address] [address] Jul, [facility] [id number] [address] Jul, [facility] [address] [place] [id number] Jul, Hemiplegia affecting left nondominant side G81.94 ; Chronic obstructive pulmonary disease J44.9 and Weakness R53.1 [facility] [id number] [address] Jul, [facility] [address] [place] [id number] Jul, Weakness R53.1 ; Paroxysmal atrial fibrillation I48.0 and Unsteady gait R26.81 [facility] [address] [facility] [id number], [place] [address] Jul, Tobacco abuse Z72.0 [facility] [address] [place] [id number] Jun, History of acute respiratory failure Z87.09 ; Weight gain R63.5 and Tobacco abuse Z72.0 [facility] [address] [address] Jun, [facility] [id number] [place] [address] May, Primary insomnia F51.01 [facility] [id number] [place] [address] May, Mild episode of recurrent major depressive disorder F33.0 [facility] [id number] [place] [address] May, [facility] [id number] [place] [address] May, Chronic obstructive pulmonary disease, unspecified COPD type J44.9 ; Primary insomnia F51.01 ; Fatigue, unspecified type R53.83 and Weight gain R63.5 [place] [id number] [place] [address] May, Thrush B37.0 [facility] [address] [place] [address] May, Mild episode of recurrent major depressive disorder F33.0 and Generalized anxiety disorder F41.1 [place] [address] [place] [address] May, Thrush B37.0 [facility] [address] [place] [address] Apr, Cough R05 [facility] [address], [place] [address] Mar, Mild episode of recurrent major depressive disorder F33.0 [facility] [address] [place] [address] Mar, Mild episode of recurrent major depressive disorder F33.0 and Generalized anxiety disorder F41.1 [facility] [address] [place] [address] Mar, Seasonal allergies J30.2 [facility] [address] [place] [address] Mar, Seasonal allergies J30.2 [facility] [id number] [place] [address] February, Generalized anxiety disorder F41.1 [facility] [id number] [place] [address] February, Cough R05 and Seasonal allergies J30.2 [facility] [id number] [place] [address] February, Generalized anxiety disorder F41.1 and Mild episode of recurrent major depressive disorder F33.0 [facility] [id number] [place] [address] February, Other chcf (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 ; Anxiety F41.9 ; Panic attacks F41.0 and Irritable bowel syndrome with diarrhea K58.0 [facility] [id number] [place] [address] February, [facility] [id number] [place] [address] Jan, Mixed hyperlipidemia E78.2 [facility] [id number] [place] [address] Jan, [facility] [id number] [place] [address] Jan, [facility] [id number] [place] [address] Jan, [facility] [address] [address] Jan, [facility] [id number] [place] [address] Dec, [facility] [address] [place] [address] Dec, [facility] [id number] [place] [address] Dec, [facility] [id number] [place] [address] Nov, Dysthymic disorder F34.1 [facility] [address] [address] Oct, [facility] [address] [address] Oct, [facility] [address] [address] Oct, [facility] [address] [address] Oct, Diarrhea, unspecified type R19.7 and Dysuria R30.0 [facility] [id number] [place] [address] Oct, [facility] [id number] [place] [address] Sep, [facility] [id number] [place] [address] Sep, [facility] [id number] [place] [address] Sep, Anxiety F41.9 [facility] [id number] [place] [address] Sep, Cerebrovascular accident (CVA), unspecified mechanism I63.9 ; Mixed hyperlipidemia E78.2 ; Gastroesophageal reflux disease with esophagitis K21.0 and Anxiety F41.9 [facility] [id number] [place] [address] Sep, [facility] [address] [address] Aug, Chronic obstructive pulmonary disease, unspecified J44.9 ; Asthma J45.909 ; Nausea R11.0 ; Dysthymic disorder F34.1 ; Cerebrovascular accident (CVA), unspecified mechanism I63.9 and Rheumatoid arthritis M06.9 [facility] [id number] [place] [address] Aug, Nausea R11.0 ; Encounter for immunization Z23 ; Sleep apnea in adult G47.30 ; Rheumatoid arthritis involving multiple sites, unspecified rheumatoid factor presence M06.9 ; Generalized anxiety disorder F41.1 ; Dysthymic disorder F34.1 and Asthma J45.909 [facility] [address] [address] Jul, [place] [address] [address] May, ADHD (attention deficit hyperactivity disorder), combined type F90.2 ; Generalized anxiety disorder F41.1 and Persistent depressive disorder F34.1 [place] [address] [address] May, Cerebrovascular accident (CVA), unspecified mechanism I63.9 [place] [address] [address] Apr, Mixed hyperlipidemia E78.2 and Cerebrovascular accident (CVA), unspecified mechanism I63.9 [facility] [id number] [place] [address] Apr, Generalized anxiety disorder F41.1 [place] [address] [address] Apr, Bronchitis J40 and Tobacco use Z72.0 [place] [address] [address] Apr, Mixed hyperlipidemia E78.2 [place] [address] [address] Apr, 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 manager (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 [facility] [address], [place] [address] Apr, [facility] [id number] [place] [address] Apr, Generalized anxiety disorder F41.1 [facility] [id number] [place] [address] Apr, Obstructive sleep apnea G47.33 and Hyperinsulinemia E16.1 [facility] [id number] [place] [address] Apr, ADHD (attention deficit hyperactivity disorder), combined type F90.2 ; Generalized anxiety disorder F41.1 and Persistent depressive disorder F34.1 [place] [id number] [place] [address] Mar, [place] [id number] [place] [address] Mar, Generalized anxiety disorder F41.1 [place] [id number] [place] [address] Mar, Tarsal tunnel syndrome of both lower extremities G57.53 [facility] [id number] [place] [address] February, [place] [id number] [place] [address] February, [facility] [id number] [place] [address] February, Asthma J45.909 [facility] [id number] [place] [address] February, Generalized anxiety disorder F41.1 [facility] [address] [place] [address] February, Hypoxemia R09.02 ; Hyperglycemia R73.9 ; Rheumatoid arthritis M06.9 and Generalized anxiety disorder F41.1 [place] [id number] [place] [address] February, [facility] [address] [address] Jan, Chronic obstructive pulmonary disease, unspecified J44.9 [facility] [id number] [place] [address] Jan, Chronic pain syndrome G89.4 [facility] [address] [address] Jan, Hypoxemia R09.02 [place] [address] [address] Jan, [place] [address] [address] Jan, Chronic obstructive pulmonary disease, unspecified J44.9 ; Hypoxemia R09.02 ; Other insomnia G47.09 and Left anterior shoulder pain M25.512 [place] [id number] [place] [address] Jan, Numbness in feet R20.0 and Neuropathy G62.9 [place] [id number] [place] [address] Jan, [place] [id number] [place] [address] Dec, Acute pain of left shoulder M25.512 [place] [id number] [place] [address] Dec, Acute pain of left shoulder M25.512 [place] [address] [address] Dec, Generalized anxiety disorder F41.1 [place] [id number] [place] [address] Dec, Generalized anxiety disorder F41.1 [place] [id number] [place] [address] Nov, ADHD (attention deficit hyperactivity disorder), combined type F90.2 ; Generalized anxiety disorder F41.1 and Persistent depressive disorder F34.1 [facility] [id number] [place] [address] Nov, Acute pain of left shoulder M25.512 [facility] [id number] [place] [address] Nov, ADHD (attention deficit hyperactivity disorder), combined type F90.2 ; Generalized anxiety disorder F41.1 and Persistent depressive disorder F34.1 [facility] [id number] [place] [address] 17 Nov, 2016 Chronic pain syndrome G89.4 [facility] [id number] [place] [address] Nov, Chronic pain syndrome G89.4 [facility] [id number] [place] [address] Nov, Acute pain of left shoulder M25.512 [facility] [id number] [place] [address] Nov, Generalized anxiety disorder F41.1 [facility] [id number] [place] [address] Nov, Acute pain of left shoulder M25.512 [facility] [id number] [place] [address] Nov, ADHD (attention deficit hyperactivity disorder), combined type F90.2 ; Generalized anxiety disorder F41.1 and Persistent depressive disorder F34.1 [facility] [address] [place] [address] 06 Nov, 2016 Acute pain of left shoulder M25.512 ; Generalized anxiety disorder F41.1 ; Chronic pain syndrome G89.4 ; Hyperinsulinemia E16.1 ; Pain of left foot M79.672 and Pain in right foot M79.671 [place] [address] [place] [address] Oct, ADHD (attention deficit hyperactivity disorder), combined type F90.2 ; Generalized anxiety disorder F41.1 and Dysthymic disorder F34.1 [place] [address] [place] [address] Sep, [place] [id number] [place] [address] Sep, [place] [id number] [place] [address] Sep, Routine gynecological examination V72.31 ; Cervical cancer screening Z12.4 ; Breast cancer screening Z12.39 ; Colon cancer screening Z12.11 ; Hypokalemia E87.6 ; Herpes simplex type 1 infection B00.9 and Abscess of right axilla L02.411 [place] [id number] [place] [address] Sep, [place] [id number] [place] [address] Sep, ADHD (attention deficit hyperactivity disorder), combined type F90.2 ; Generalized anxiety disorder F41.1 and Dysthymic disorder F34.1 [place] [address] [place] [address] Aug, [place] [id number] [place] [address] Aug, [place] [id number] [place] [address] Aug, Generalized anxiety disorder F41.1 [place] [id number] [place] [address] Aug, ADHD (attention deficit hyperactivity disorder), combined type F90.2 ; Generalized anxiety disorder F41.1 and Dysthymic disorder F34.1 [place] [id number] [place] [address] Jul, Chronic pain syndrome G89.4 ; Hypertension I10 ; Hypokalemia E87.6 ; Asthma J45.909 and Nausea R11.0 [place] [id number] [place] [address] Jul, [place] [id number] [place] [address] Jul, Asthma J45.909 [place] [address] [address] Jul, ADHD (attention deficit hyperactivity disorder), combined type F90.2 ; Generalized anxiety disorder F41.1 and Dysthymic disorder F34.1 [place] [id number] [place] [address] Jul, [place] [address] [address] Jul, Hypertension I10 ; Arteriosclerotic coronary artery disease I25.10 ; Mixed hyperlipidemia E78.2 ; 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 manager (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 and Hyperglycemia R73.9 [place] [id number] [place] [address] 16 Jun, 2016 Hypokalemia E87.6 and Hyperglycemia R73.9 [place] [id number] [place] [phone] 14 Jun, 2016 [place] [address] [phone] 13 Jun, 2016 Abnormal kidney function N28.9 [facility] [address] [place] [id number] [place] [phone] 09 Jun, 2016 [place] [address] [place] [id number] [place] [phone] 06 Jun, 2016 ADHD (attention deficit hyperactivity disorder), combined type F90.2 ; Generalized anxiety disorder F41.1 and Dysthymic disorder F34.1 [facility] [address] [place] [id number] [place] [phone] Jun, Generalized anxiety disorder F41.1 and Dysthymic disorder F34.1 [place] [address] [place] [phone] Jun, Hypokalemia E87.6 [place] [address] [address] May, Hypokalemia E87.6 ; Vertigo R42 and Hyperinsulinemia E16.1 [place] [address] [phone] May, [place] [address] [phone] May, Abnormal kidney function N28.9 ; Hyperinsulinemia E16.1 and Nausea R11.0 [place] [address] [phone] May, Hypokalemia E87.6 ; Nausea R11.0 ; Epigastric pain R10.13 ; Dehydration E86.0 ; Diaphoresis R61 and Right arm pain M79.601 [place] [address] [phone] May, [place] [address] [phone] May, Hypokalemia E87.6 [place] [address] [phone] May, Hypokalemia E87.6 [place] [address] [phone] Apr, [place] [address] [phone] Apr, ADHD (attention deficit hyperactivity disorder), combined type F90.2 ; Generalized anxiety disorder F41.1 and Dysthymic disorder F34.1 [facility] [address] [address] Apr, Right arm pain M79.601 and Hyperinsulinemia E16.1 [place] [address] [place] [id number] [place] [address] Mar, [place] [address] [id number] [place] [address] Mar, [facility] [id number] [place] [address] Mar, Hyperinsulinemia E16.1 ; Hyperlipidemia, unspecified hyperlipidemia type E78.5 ; Central venous catheter in place Z78.9 ; Generalized anxiety disorder F41.1 and Urinary tract infection, site not specified N39.0 [facility] [id number] [place] [address] Mar, ADHD (attention deficit hyperactivity disorder), combined type F90.2 ; Generalized anxiety disorder F41.1 and Dysthymic disorder F34.1 [place] [address] [id number] [place] [address] February, ADHD (attention deficit hyperactivity disorder), combined type F90.2 ; Generalized anxiety disorder F41.1 and Dysthymic disorder F34.1 [place] [id number] [place] [address] February, [place] [id number] [place] [address] February, [place] [id number] [place] [address] February, Hypertension I10 and Weight gain R63.5 [place] [id number] [place] [address] February, Major depressive disorder, recurrent, moderate F33.1 and Generalized anxiety disorder F41.1 [place] [id number] [place] [address] February, ADHD (attention deficit hyperactivity disorder), combined type F90.2 ; Generalized anxiety disorder F41.1 and Dysthymic disorder F34.1 [facility] [id number] [place] [address] February, [facility] [id number] [place] [address] February, Asthma J45.909 ; Weight gain R63.5 ; Hypertension I10 ; Rheumatoid arthritis M06.9 and Chronic pain syndrome G89.4 [facility] [id number] [place] [address] Jan, ADHD (attention deficit hyperactivity disorder), combined type F90.2 ; Generalized anxiety disorder F41.1 and Dysthymic disorder F34.1 [facility] [id number] [place] [address] Dec, ADHD (attention deficit hyperactivity disorder), combined type F90.2 ; Generalized anxiety disorder F41.1 and Dysthymic disorder F34.1 [facility] [id number] [place] [address] Dec, [facility] [id number] [place] [address] Nov, [facility] [id number] [address] Nov, [facility] [id number] [place] [address] Nov, [facility] [id number] [address] Nov, [facility] [id number] [place] [address] Oct, [facility] [id number] [address] Oct, [facility] [id number] [place] [address] Oct, [facility] [id number] [address] Sep, [facility] [id number] [address] Sep, [facility] [address], [place] [address] Sep, Agoraphobia with panic disorder F40.01 ; Attention-deficit hyperactivity disorder, combined type F90.2 and Dysthymic disorder F34.1 [facility] [id number] [address] Aug, [facility] [id number] [address] Aug, [facility] [id number] [address] Aug, [facility] [id number] [address] Aug, Dysthymic disorder F34.1 ; Generalized anxiety disorder F41.1 and ADHD (attention deficit hyperactivity disorder), combined type F90.2 [facility] [address] [address] Aug, ADHD (attention deficit hyperactivity disorder), combined type F90.2 ; Generalized anxiety disorder F41.1 and Dysthymic disorder F34.1 [facility] [address] [address] Jul, Urinary tract infection, site not specified N39.0 ; Hypotension, unspecified I95.9 and Breast cancer screening Z12.39 [facility] [address] [address] Jul, [facility] [id number], [place] [address] Jul, [facility] [id number] [place] [address] Jul, Urinary tract infection, site not specified N39.0 ; Nausea R11.0 ; Gastroenteritis K52.9 ; Renal failure N19 and Other hypotension I95.89 [facility] [id number] [place] [address] Jul, [facility] [address] [address] Jul, [facility] [id number] [place] [address] Jul, [facility] [address] [address] Jun, [facility] [id number] [place] [address] Jun, Major depression in partial remission 296.25 ; Generalized anxiety disorder 300.02 and ADHD, predominantly inattentive type 314.01 [facility] [address] [id number] [place] [address] May, [facility] [address] [place] [address] Apr, Major depressive disorder, recurrent episode, severe, without mention of psychotic behavior 296.33 ; Agoraphobia with panic disorder 300.21 and Generalized anxiety disorder 300.02 [place] [address] [place] [id number] [place] [address] Apr, ADHD (attention deficit hyperactivity disorder), combined type 314.01 ; Generalized anxiety disorder 300.02 and Dysthymic disorder 300.[address] [address] Apr, CAD (coronary artery disease) 414.00 ; HTN (hypertension) 401.9 and Tobacco use 305.1 [place] [address] [place] [id number] [place] [address] Apr, [facility] [address] [place] [address] Mar, ADHD (attention deficit hyperactivity disorder), combined type 314.01 ; Generalized anxiety disorder 300.02 ; Dysthymic disorder 300.4 ; No condition on [place] V71.09 ; Rheumatoid arthritis 714.0 ; Incontinence 788.30 ; Irritable bowel syndrome 564.1 ; Osteoporosis 733.00 and Chronic pain 338.29 [facility] [address] [address] Mar, Agoraphobia with panic disorder 300.21 and Major depressive disorder, recurrent episode, moderate 296.32 [facility] [address] [address] Mar, [facility] [id number] [place] [address] February, [facility] [address] [id number] [place] [address] February, Agoraphobia with panic disorder 300.21 and Major depressive disorder, recurrent episode, moderate 296.32 [facility] [id number] [place] [address] February, [facility] [id number] [place] [address] Jan, [facility] [id number] [place] [address] Jan, [facility] [id number] [place] [address] Dec, [facility] [id number] [place] [address] Dec, [facility] [address] [address] Dec, [facility] [id number] [place] [address] Dec, [facility] [address] [place] [address] Dec, [facility] [place] [facility] [address] [id number] [place] [address] Dec, [facility] [place] [facility] [address] [id number] [place] [address] Nov, 2014 [facility] [place] [facility] [address] [id number] [place] [address] Nov, 2014 [facility] [place] [facility] [address] [id number] [place] [address] Nov, 2014 [facility] [place] [facility] [address] [id number] [place] [address] Nov, 2014 [facility] [place] [facility] [address] [id number] [place] [address] Nov, 2014 [facility] [place] [facility] [address] [id number] [place] [address] Nov, [facility] [place] [facility] [address] [id number] [place] [address] Nov, [facility] [place] [facility] [address] [id number] [place] [address] Nov, [facility] [place] [facility] [address] [facility] [id number] [place] [address] Oct, [facility] [place] [facility] [address] [id number] [place] [address] Oct, [facility] [place] [facility] [address] [id number] [place] [address] Oct, [facility] [place] [facility] [address] [id number] [place] [address] Oct, [facility] [place] [facility] [address] [id number] [place] [address] Oct, [facility] [place] [facility] [address] [facility] [id number] [place] [address] Oct, [facility] [place] [facility] [address] [id number] [place] [address] Sep, [facility] [place] [facility] [address] [id number] [place] [address] Sep, [facility] [place] [facility] [address] [id number] [place] [address] Sep, [facility] [place] [facility] [address] [id number] [place] [address] Sep, [facility] [place] [facility] [address] [id number] [place] [address] Sep, [facility] [place] [facility] [address] [id number] [place] [address] Sep, [facility] [place] [facility] [address] [id number] [place] [address] Sep, [facility] [place] [facility] [address] [id number] [place] [address] Aug, [facility] [place] [facility] [address] [id number] [place] [address] Aug, [facility] [place] [facility] [address] [id number] [place] [address] Aug, [facility] [place] [facility] [address] [id number] [place] [address] Aug, [facility] [place] [facility] [address] [id number], [place] [address] Aug, [facility] [place] [facility] [address] [id number] [place] [address] Aug, [facility] [place] [facility] [address] [id number] [address] Jul, [facility] [place] [facility] [address] [id number] [place] [address] Jul, [facility] [place] [facility] [address] [id number] [place] [address] Jul, [facility] [place] [facility] [address] [id number] [place] [address] Jul, [facility] [place] [facility] [address] [id number] [place] [address] Jul, [facility] [place] [facility] [address] [id number] [place] [address] Jul, [facility] [place] [facility] [address] [id number] [place] [address] Jun, [facility] [place] [facility] [address] [id number] [place] [address] Jun, [facility] [place] [facility] [address] [id number] [place] [address] May, [facility] [place] [facility] [address] [id number] [place] [address] May, [facility] [place] [facility] [address] [id number] [place] [address] Apr, [facility] [place] [facility] [address] [id number] [place] [address] Apr, [facility] [place] [facility] [address] [id number] [place] [address] Apr, [facility] [place] [facility] [address] [id number] [place] [address] Apr, [facility] [place] [facility] [address] [id number] [place] [address] Mar, [facility] [place] [facility] [address] [id number] [place] [address] Mar, [facility] [place] [facility] [address] [id number] [place] [address] Mar, [facility] [place] [facility] [address] [id number] [place] [address] Mar, [facility] [place] [facility] [address] [id number] [place] [address] February, [facility] [place] [facility] [address] [id number] [place] [address] February, [facility] [place] [facility] [address] [id number] [place] [address] February, [facility] [place] [facility] [address] [id number] [place] [address] February, [facility] [place] [facility] [address] [id number] [place] [address] February, [facility] [place] [facility] [address] [id number] [place] [address] February, [facility] [place] [facility] [address] [id number] [place] [address] Jan, [facility] [place] [facility] [address] [id number] [place] [address] Jan, [facility] [place] [facility] [address] [id number] [place] [address] Dec, [facility] [place] [facility] [address] [id number] [place] [address] Dec, [facility] [place] [facility] [address] [id number] [place] [address] Nov, [facility] [place] [facility] [address] [id number] [place] [address] Nov, [facility] [place] [facility] [address] [id number] [place] [address] Oct, [facility] [place] [facility] [address] [id number] [place] [address] Oct, [facility] [place] [facility] [address] [id number] [place] [address] Oct, [facility] [place] [facility] [address] [id number] [place] [address] Oct, [facility] [place] [facility] [address] [id number] [place] [address] Sep, [facility] [place] [facility] [address] [id number] [place] [address] Sep, [facility] [place] [facility] [address] [id number] [place] [address] Sep, [facility] [place] [facility] [address] [id number] [place] [address] Sep, [facility] [place] [facility] [address] [id number] [place] [address] Sep, [facility] [place] [facility] [address] [id number] [place] [address] Sep, [facility] [place] [facility] [address] [id number] [place] [address] Sep, [facility] [place] [facility] [address] [id number] [place] [address] Sep, [facility] [place] [facility] [address] [id number] [place] [address] Aug, [facility] [place] [facility] [address] [id number] [place] [address] Aug, [facility] [place] [facility] [address] [id number], [place] [address] Aug, [facility] [place] [facility] [address] [id number], [place] [address] Aug, [facility] [place] [facility] [address] [id number] [place] [address] Aug, [facility] [place] [facility] [address] [id number], [place] [address] Aug, [facility] [place] [facility] [address] [id number] [place] [address] Aug, [facility] [place] [facility] [address] [id number] [place] [address] Aug, [facility] [address] [id number] [place] [address] Aug, [facility] [address] [id number] [place] [address] Jul, [facility] [address] [id number] [place] [address] Jun, [facility] [address] [id number] [place] [address] May, [facility] [address] [id number] [place] [address] May, [facility] [address] [id number] [place] [address] May, [facility] [address] [id number] [place] [address] Apr, [facility] [address] [id number] [place] [address] Mar, [facility] [address] [id number] [place] [address] February, [facility] [address] [id number] [place] [address] Oct, [facility] [address] [id number] [place] [address] Oct, [facility] [address] [id number] [place] [address] Oct, [facility] [address] [id number] [place] [address] Oct, [facility] [address] [id number] [place] [address] Oct, [facility] [address] [id number] [place] [address] Oct, [facility] [place] [facility] [address] [id number] [place] [address] Sep, [facility] [place] [facility] [address] [id number] [place] [address] Sep, [facility] [place] [facility] [address] [id number] [place] [address] Aug, [facility] [place] [facility] [address] [id number] [place] [address] Aug, [facility] [place] [facility] [address] [id number] [place] [address] Jul, [facility] [place] [facility] [address] [id number] [place] [address] Jul, [facility] [place] [facility] [address] [id number] [place] [address] Jul, [facility] [place] [facility] [address] [id number], [place] [address] Jul, [facility] [place] [facility] [address] [id number] [place] [address] Jul, [facility] [place] [facility] [address] [id number], [place] [address] Jul, [facility] [place] [facility] [address] [id number], [place] [address] Jul, [facility] [place] [facility] [address] [id number], [place] [address] Jul, [facility] [place] [facility] [address] [id number] [place] [address] 16 Jun, 2012 [facility] [place] [facility] [address] [id number], [place] [address] Jun, [facility] [place] [facility] [address] [facility] [id number], [place] [address] May, [facility] [place] [facility] [address] [id number], [place] [address] Apr, [facility] [place] [facility] [address] [id number] [place] [address] Mar, [facility] [place] [facility] [address] [id number] [place] [address] Mar, [facility] [place] [facility] [address] [id number] [place] [address] Mar, [facility] [place] [facility] [address] [id number] [place] [address] Mar, [facility] [place] [facility] [address] [id number] [place] [address] Jan, [facility] [place] [facility] [address] [id number] [place] [address] Nov, [facility] [place] [facility] [address] [id number] [place] [address] Nov, [facility] [place] [facility] [address] [id number] [place] [address] Nov, [facility] [place] [facility] [address] [id number] [place] [address] Oct, [facility] [place] [facility] [address] [facility] [id number] [place] [address] Sep, [facility] [place] [facility] [address] [id number] [place] [address] Sep, [facility] [place] [facility] [address] [id number] [place] [address] Aug, [facility] [place] [facility] [address] [id number] [place] [address] Aug, [facility] [place] [facility] [address] [id number] [place] [address] Aug, [facility] [place] [facility] [address] [id number], [place] [address] Aug, [facility] [address] [id number] [address] Jul, [facility] [id number] [address] May, [facility] [id number] [address] Jan, [facility] [id number] [place] [id number] Nov, [facility] [id number] [place] [id number] Apr, [facility] [id number] [place] [id number] Dec, [facility] [id number] [address] Nov, IMMUNIZATIONS No Known Immunizations SOCIAL HISTORY Never Assessed REASON FOR VISIT Controlled Med Refill PLAN OF CARE VITAL SIGNS MEDICATIONS Medication Instructions Dosage Frequency Start Date End Date Duration Status Ambien 5 mg Orally Once a day 1 tablet at bedtime as needed 24h Jun, 28 days Active RESULTS No Results PROCEDURES No Known procedures INSTRUCTIONS MEDICATIONS ADMINISTERED No Known Medications MEDICAL (GENERAL) HISTORY Type Description Date Medical History Cardiovascular uehyyedu-WBB-Esrvalpf, non-obstructive per (01/2011) Dr. Mendoza Medical History Stress test 03/07/13-Dr. Kelly Dietrich normal Medical History Hypertension Medical History Asthma Medical History Gastrointestinal Disorder--IBS, GERD, Hx of fatty liver Medical History Hernia 1979 Medical History Cervical dysplasia 02/16-Pap LGSIL/[place]-mild dysplasia Medical History Hyperlipidemia Medical History Rheumatoid [...] Kidney injury 07/10/15-07/11/2015 Hospitalization History Symptomatic Hypokalemia/Nause-[facility]ia [facility] 05/13/16 Hospitalization History Stroke 05/03/2017 Hospitalization History stroke 08/24/2017--09/01/2017
[2019-05-22] MEDS ORDERED: HURRICAINE EXT TUBE (BENZOCAINE) XX PRN (07:30)
--- OUTSIDE RECORDS SUMMARY | 2019-05-22 07:30 | XMS REPORT ---
Author Author TEQUILA Lynn Organization [facility] Address [address] [place] [address] Care Team Providers Care Resistance Welder Name Role Phone TEQUILA Lynn Unavailable PROBLEMS Type Condition ICD9-CM Code [id number] Code Onset Dates Condition Status SNOMED Code Problem Hemiparesis of left nondominant side as late effect of cerebral infarction I69.354 Active 087004841 Problem Generalized anxiety disorder F41.1 Active 62561693 Problem Morbid (severe) obesity due to excess calories E66.01 Active 595413671 Problem Chronic pain syndrome G89.4 Active 983884973 Problem ADHD (attention deficit hyperactivity disorder), combined type F90.2 Active 07815135 Problem Asthma J45.909 Active 641713106 Problem Rheumatoid arthritis M06.9 Active 83631811 Problem Anxiety F41.9 Active 77578196 Problem Gastroesophageal reflux disease with esophagitis K21.0 Active 386179381 Problem Neuropathy G62.9 Active 518647477 Problem Hyperinsulinemia E16.1 Active 06949912 Problem Obstructive sleep apnea G47.33 Active 93209961 Problem Other insomnia G47.09 Active 508654316 Problem Cerebrovascular accident (CVA), unspecified mechanism I63.9 Active 912766318 Problem Other director long term care (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 Active 811923978 Problem Sleep apnea in adult G47.30 Active 72293518 Problem Dysthymic disorder F34.1 Active 07512753 Problem Irritable bowel syndrome with diarrhea K58.0 Active 510512980 Problem Panic attacks F41.0 Active 583098406 Problem Mild episode of recurrent major depressive disorder F33.0 Active 421386682 Problem Chronic obstructive pulmonary disease J44.9 Active 75919799 Problem Arteriosclerotic coronary artery disease I25.10 Active 56218449 Problem Hemiplegia affecting left nondominant side G81.94 Active Problem Hypertension I10 Active 52323656 Problem Mixed hyperlipidemia E78.2 Active 521359352 Problem Seasonal allergies J30.2 Active 042173216 Problem Primary insomnia F51.01 Active 2579320 Problem Paroxysmal atrial fibrillation I48.0 Active 554032858 Problem Unsteady gait R26.81 Active 12347464 ALLERGIES No Information ENCOUNTERS Encounter Location Date Diagnosis [place] [id number] [place] [address] May, [place] [address] [address] Apr, [place] [id number] [place] [address] Mar, [place] [id number] [place] [id number] Mar, [place] [address] [address] Mar, [place] [address] [address] February, Generalized anxiety disorder F41.1 and Mild episode of recurrent major depressive disorder F33.0 [place] [id number] [place] [address] Jan, [place] [id number] [place] [id number] Jan, Herpes zoster without complication B02.9 [place] [id number] [place] [address] Jan, Other insomnia G47.09 ; Hypertension I10 ; Rheumatoid arthritis M06.9 ; Mild episode of recurrent major depressive disorder F33.0 ; Breast cancer screening Z12.39 ; Arteriosclerotic coronary artery disease I25.10 ; Morbid (severe) obesity due to excess calories E66.01 and Hemiparesis of left nondominant side as late effect of cerebral infarction I69.354 [place] [id number] [place] [address] 08 Jan, 2019 Asthma J45.909 and Other insomnia G47.09 [place] [address], [place] [address] Jan, [facility] [address], [place] [address] Dec, Generalized anxiety disorder F41.1 and Mild episode of recurrent major depressive disorder F33.0 [facility] [address], [place] [address] Dec, [facility] [address] [place] [address] Dec, [facility] [address], [place] [address] Dec, [address] [id number] Nov, Viral upper respiratory tract infection J06.9 [facility] [address] [place] [address] Nov, [facility] [address], [place] [address] Oct, [facility] [address], [place] [address] Sep, [facility] [address], [place] [address] Sep, [facility] [address], [place] [address] Sep, [facility] [address], [place] [address] Sep, Orthostatic hypotension I95.1 ; Shortness of breath R06.02 ; Right foot pain M79.671 and Morbid (severe) obesity due to excess calories E66.01 [facility] [address], [place] [address] Aug, [facility] [address], [place] [address] Aug, [facility] [id number] [address] Aug, [facility] [address] [facility] [id number] [address] Aug, [facility] [address] [facility] [id number] [address] Aug, [facility] [address] [facility] [id number] [address] Jul, [facility] [address] [facility] [id number] [address] Jul, [facility] [address] [facility] [id number] [address] Jul, [facility] [address], [place] [address] Jul, [facility] [address], [place] [address] Jul, [facility] [id number], [place] [address] Jul, [facility] [address] [place] [id number] Jul, Hemiplegia affecting left nondominant side G81.94 ; Chronic obstructive pulmonary disease J44.9 and Weakness R53.1 [facility] [id number] [address] Jul, [facility] [address] [place] [id number] Jul, Weakness R53.1 ; Paroxysmal atrial fibrillation I48.0 and Unsteady gait R26.81 [facility] [address] [facility] [id number], [place] [address] Jul, Tobacco abuse Z72.0 [facility] [address] [place] [id number] Jun, History of acute respiratory failure Z87.09 ; Weight gain R63.5 and Tobacco abuse Z72.0 [facility] [address], [place] [address] Jun, [facility] [id number] [place] [address] May, Primary insomnia F51.01 [facility] [id number] [place] [address] May, Mild episode of recurrent major depressive disorder F33.0 [facility] [id number] [place] [address] May, [place] [id number] [place] [address] May, Chronic obstructive pulmonary disease, unspecified COPD type J44.9 ; Primary insomnia F51.01 ; Fatigue, unspecified type R53.83 and Weight gain R63.5 [place] [id number] [place] [address] May, Thrush B37.0 [facility] [address] [place] [address] May, Mild episode of recurrent major depressive disorder F33.0 and Generalized anxiety disorder F41.1 [place] [address] [place] [address] May, Thrush B37.0 [facility] [address] [place] [address] Apr, Cough R05 [facility] [address], [place] [address] Mar, Mild episode of recurrent major depressive disorder F33.0 [facility] [address] [place] [address] Mar, Mild episode of recurrent major depressive disorder F33.0 and Generalized anxiety disorder F41.1 [facility] [address] [place] [address] Mar, Seasonal allergies J30.2 [facility] [address] [place] [address] Mar, Seasonal allergies J30.2 [facility] [id number] [place] [address] February, Generalized anxiety disorder F41.1 [facility] [id number] [place] [address] February, Cough R05 and Seasonal allergies J30.2 [facility] [id number] [place] [address] February, Generalized anxiety disorder F41.1 and Mild episode of recurrent major depressive disorder F33.0 [facility] [id number] [place] [address] February, Other half-way (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 ; Anxiety F41.9 ; Panic attacks F41.0 and Irritable bowel syndrome with diarrhea K58.0 [facility] [id number] [place] [address] February, [facility] [id number] [place] [address] Jan, Mixed hyperlipidemia E78.2 [facility] [id number] [place] [address] Jan, [facility] [id number] [place] [address] Jan, [facility] [id number] [place] [address] Jan, [facility] [address] [address] Jan, [facility] [id number] [place] [address] Dec, [facility] [address] [place] [address] Dec, [facility] [id number] [place] [address] Dec, [facility] [id number] [place] [address] Nov, Dysthymic disorder F34.1 [facility] [address] [address] Oct, [facility] [address] [address] Oct, [facility] [address] [address] Oct, [facility] [address] [address] Oct, Diarrhea, unspecified type R19.7 and Dysuria R30.0 [facility] [id number] [place] [address] Oct, [facility] [id number] [place] [address] Sep, [facility] [id number] [place] [address] Sep, [facility] [id number] [place] [address] Sep, Anxiety F41.9 [facility] [id number] [place] [address] Sep, Cerebrovascular accident (CVA), unspecified mechanism I63.9 ; Mixed hyperlipidemia E78.2 ; Gastroesophageal reflux disease with esophagitis K21.0 and Anxiety F41.9 [facility] [id number] [place] [address] Sep, [facility] [address] [address] Aug, Chronic obstructive pulmonary disease, unspecified J44.9 ; Asthma J45.909 ; Nausea R11.0 ; Dysthymic disorder F34.1 ; Cerebrovascular accident (CVA), unspecified mechanism I63.9 and Rheumatoid arthritis M06.9 [facility] [id number] [place] [address] Aug, Nausea R11.0 ; Encounter for immunization Z23 ; Sleep apnea in adult G47.30 ; Rheumatoid arthritis involving multiple sites, unspecified rheumatoid factor presence M06.9 ; Generalized anxiety disorder F41.1 ; Dysthymic disorder F34.1 and Asthma J45.909 [place] [address] [address] Jul, [place] [address] [address] May, ADHD (attention deficit hyperactivity disorder), combined type F90.2 ; Generalized anxiety disorder F41.1 and Persistent depressive disorder F34.1 [place] [address] [address] May, Cerebrovascular accident (CVA), unspecified mechanism I63.9 [place] [address] [address] Apr, Mixed hyperlipidemia E78.2 and Cerebrovascular accident (CVA), unspecified mechanism I63.9 [place] [id number] [place] [address] Apr, Generalized anxiety disorder F41.1 [place] [address] [address] Apr, Bronchitis J40 and Tobacco use Z72.0 [place] [address] [address] Apr, Mixed hyperlipidemia E78.2 [place] [address] [address] Apr, Other half-way (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 [facility] [address], [place] [address] Apr, [facility] [id number] [place] [address] Apr, Generalized anxiety disorder F41.1 [facility] [id number] [place] [address] Apr, Obstructive sleep apnea G47.33 and Hyperinsulinemia E16.1 [facility] [id number] [place] [address] Apr, ADHD (attention deficit hyperactivity disorder), combined type F90.2 ; Generalized anxiety disorder F41.1 and Persistent depressive disorder F34.1 [place] [id number] [place] [address] Mar, [place] [id number] [place] [address] Mar, Generalized anxiety disorder F41.1 [place] [id number] [place] [address] Mar, Tarsal tunnel syndrome of both lower extremities G57.53 [facility] [id number] [place] [address] February, [place] [id number] [place] [address] February, [facility] [id number] [place] [address] February, Asthma J45.909 [facility] [id number] [place] [address] February, Generalized anxiety disorder F41.1 [facility] [address] [place] [address] February, Hypoxemia R09.02 ; Hyperglycemia R73.9 ; Rheumatoid arthritis M06.9 and Generalized anxiety disorder F41.1 [place] [id number] [place] [address] February, [facility] [address] [address] Jan, Chronic obstructive pulmonary disease, unspecified J44.9 [facility] [id number] [place] [address] Jan, Chronic pain syndrome G89.4 [facility] [address] [address] Jan, Hypoxemia R09.02 [place] [address] [address] Jan, [place] [address] [address] Jan, Chronic obstructive pulmonary disease, unspecified J44.9 ; Hypoxemia R09.02 ; Other insomnia G47.09 and Left anterior shoulder pain M25.512 [place] [id number] [place] [address] Jan, Numbness in feet R20.0 and Neuropathy G62.9 [place] [id number] [place] [address] Jan, [place] [id number] [place] [address] Dec, Acute pain of left shoulder M25.512 [place] [id number] [place] [address] Dec, Acute pain of left shoulder M25.512 [place] [address] [address] Dec, Generalized anxiety disorder F41.1 [place] [id number] [place] [address] Dec, Generalized anxiety disorder F41.1 [place] [id number] [place] [address] Nov, ADHD (attention deficit hyperactivity disorder), combined type F90.2 ; Generalized anxiety disorder F41.1 and Persistent depressive disorder F34.1 [facility] [id number] [place] [address] Nov, Acute pain of left shoulder M25.512 [facility] [id number] [place] [address] Nov, ADHD (attention deficit hyperactivity disorder), combined type F90.2 ; Generalized anxiety disorder F41.1 and Persistent depressive disorder F34.1 [facility] [id number] [place] [address] 17 Nov, 2016 Chronic pain syndrome G89.4 [facility] [id number] [place] [address] Nov, Chronic pain syndrome G89.4 [facility] [id number] [place] [address] Nov, Acute pain of left shoulder M25.512 [facility] [id number] [place] [address] Nov, Generalized anxiety disorder F41.1 [facility] [id number] [place] [address] Nov, Acute pain of left shoulder M25.512 [facility] [id number] [place] [address] Nov, ADHD (attention deficit hyperactivity disorder), combined type F90.2 ; Generalized anxiety disorder F41.1 and Persistent depressive disorder F34.1 [facility] [address] [place] [address] 06 Nov, 2016 Acute pain of left shoulder M25.512 ; Generalized anxiety disorder F41.1 ; Chronic pain syndrome G89.4 ; Hyperinsulinemia E16.1 ; Pain of left foot M79.672 and Pain in right foot M79.671 [place] [address] [place] [address] Oct, ADHD (attention deficit hyperactivity disorder), combined type F90.2 ; Generalized anxiety disorder F41.1 and Dysthymic disorder F34.1 [place] [address] [place] [address] Sep, [place] [id number] [place] [address] Sep, [place] [id number] [place] [address] Sep, Routine gynecological examination V72.31 ; Cervical cancer screening Z12.4 ; Breast cancer screening Z12.39 ; Colon cancer screening Z12.11 ; Hypokalemia E87.6 ; Herpes simplex type 1 infection B00.9 and Abscess of right axilla L02.411 [place] [id number] [place] [address] Sep, [place] [id number] [place] [address] Sep, ADHD (attention deficit hyperactivity disorder), combined type F90.2 ; Generalized anxiety disorder F41.1 and Dysthymic disorder F34.1 [place] [address] [place] [address] Aug, [place] [id number] [place] [address] Aug, [place] [id number] [place] [address] Aug, Generalized anxiety disorder F41.1 [place] [id number] [place] [address] Aug, ADHD (attention deficit hyperactivity disorder), combined type F90.2 ; Generalized anxiety disorder F41.1 and Dysthymic disorder F34.1 [place] [id number] [place] [address] Jul, Chronic pain syndrome G89.4 ; Hypertension I10 ; Hypokalemia E87.6 ; Asthma J45.909 and Nausea R11.0 [place] [id number] [place] [address] Jul, [place] [id number] [place] [address] Jul, Asthma J45.909 [place] [address] [address] Jul, ADHD (attention deficit hyperactivity disorder), combined type F90.2 ; Generalized anxiety disorder F41.1 and Dysthymic disorder F34.1 [place] [id number] [place] [address] Jul, [place] [address] [address] Jul, Hypertension I10 ; Arteriosclerotic coronary artery disease I25.10 ; Mixed hyperlipidemia E78.2 ; Other director long term care (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 and Hyperglycemia R73.9 [place] [id number] [place] [address] 16 Jun, 2016 Hypokalemia E87.6 and Hyperglycemia R73.9 [place] [id number] [place] [address] 14 Jun, 2016 [place] [address] [address] 13 Jun, 2016 Abnormal kidney function N28.9 [place] [id number] [place] [address] 09 Jun, 2016 [place] [id number] [place] [address] 06 Jun, 2016 ADHD (attention deficit hyperactivity disorder), combined type F90.2 ; Generalized anxiety disorder F41.1 and Dysthymic disorder F34.1 [place] [id number] [place] [address] Jun, Generalized anxiety disorder F41.1 and Dysthymic disorder F34.1 [place] [address] [id number] Jun, Hypokalemia E87.6 [place] [address] [address] May, Hypokalemia E87.6 ; Vertigo R42 and Hyperinsulinemia E16.1 [place] [address] [address] May, [place] [address] [address] May, Abnormal kidney function N28.9 ; Hyperinsulinemia E16.1 and Nausea R11.0 [place] [address] [address] May, Hypokalemia E87.6 ; Nausea R11.0 ; Epigastric pain R10.13 ; Dehydration E86.0 ; Diaphoresis R61 and Right arm pain M79.601 [place] [address] [address] May, [place] [address] [address] May, Hypokalemia E87.6 [place] [address] [address] May, Hypokalemia E87.6 [place] [address] [address] Apr, [place] [address] [address] Apr, ADHD (attention deficit hyperactivity disorder), combined type F90.2 ; Generalized anxiety disorder F41.1 and Dysthymic disorder F34.1 [place] [id number] [address] Apr, Right arm pain M79.601 and Hyperinsulinemia E16.1 [place] [address] [place] [id number] [place] [phone] Mar, [place] [address] [place] [id number] [place] [id number] Mar, [place] [address] [place] [id number] [place] [id number] Mar, Hyperinsulinemia E16.1 ; Hyperlipidemia, unspecified hyperlipidemia type E78.5 ; Central venous catheter in place Z78.9 ; Generalized anxiety disorder F41.1 and Urinary tract infection, site not specified N39.0 [place] [address] [place] [id number] [place] [id number] Mar, ADHD (attention deficit hyperactivity disorder), combined type F90.2 ; Generalized anxiety disorder F41.1 and Dysthymic disorder F34.1 [place] [address] [place] [id number] [place] [id number] February, ADHD (attention deficit hyperactivity disorder), combined type F90.2 ; Generalized anxiety disorder F41.1 and Dysthymic disorder F34.1 [place] [id number] [place] [id number] February, [place] [address] [place] [id number] [place] [id number] February, [place] [address] [place] [id number] [place] [address] [address] February, Hypertension I10 and Weight gain R63.5 [facility] [id number] [place] [address] February, Major depressive disorder, recurrent, moderate F33.1 and Generalized anxiety disorder F41.1 [facility] [id number] [place] [address] February, ADHD (attention deficit hyperactivity disorder), combined type F90.2 ; Generalized anxiety disorder F41.1 and Dysthymic disorder F34.1 [facility] [id number] [place] [address] February, [facility] [id number] [place] [address] February, Asthma J45.909 ; Weight gain R63.5 ; Hypertension I10 ; Rheumatoid arthritis M06.9 and Chronic pain syndrome G89.4 [facility] [id number] [place] [address] Jan, ADHD (attention deficit hyperactivity disorder), combined type F90.2 ; Generalized anxiety disorder F41.1 and Dysthymic disorder F34.1 [facility] [id number] [place] [address] Dec, ADHD (attention deficit hyperactivity disorder), combined type F90.2 ; Generalized anxiety disorder F41.1 and Dysthymic disorder F34.1 [facility] [id number] [place] [address] Dec, [facility] [id number] [place] [address] Nov, [facility] [id number] [address] Nov, [facility] [id number] [place] [address] Nov, [facility] [address] [address] Nov, [facility] [id number] [place] [address] Oct, [facility] [id number] [address] Oct, [facility] [id number] [place] [address] Oct, [facility] [address] [address] Sep, [facility] [address], [place] [address] Sep, [facility] [address] [address] Sep, Agoraphobia with panic disorder F40.01 ; Attention-deficit hyperactivity disorder, combined type F90.2 and Dysthymic disorder F34.1 [facility] [address] [address] Aug, [facility] [address] [address] Aug, [facility] [id number] [address] Aug, [facility] [address] [address] Aug, Dysthymic disorder F34.1 ; Generalized anxiety disorder F41.1 and ADHD (attention deficit hyperactivity disorder), combined type F90.2 [facility] [address] [address] Aug, ADHD (attention deficit hyperactivity disorder), combined type F90.2 ; Generalized anxiety disorder F41.1 and Dysthymic disorder F34.1 [facility] [address], [place] [address] Jul, Urinary tract infection, site not specified N39.0 ; Hypotension, unspecified I95.9 and Breast cancer screening Z12.39 [facility] [address] [address] Jul, [facility] [address], [place] [address] Jul, [facility] [id number] [place] [address] Jul, Urinary tract infection, site not specified N39.0 ; Nausea R11.0 ; Gastroenteritis K52.9 ; Renal failure N19 and Other hypotension I95.89 [facility] [id number] [place] [address] Jul, [facility] [address] [address] Jul, [facility] [id number] [place] [address] Jul, [facility] [address] [address] Jun, [facility] [id number] [place] [address] Jun, Major depression in partial remission 296.25 ; Generalized anxiety disorder 300.02 and ADHD, predominantly inattentive type 314.01 [facility] [id number] [place] [address] May, [facility] [address] [place] [address] Apr, Major depressive disorder, recurrent episode, severe, without mention of psychotic behavior 296.33 ; Agoraphobia with panic disorder 300.21 and Generalized anxiety disorder 300.02 [facility] [id number] [place] [address] Apr, ADHD (attention deficit hyperactivity disorder), combined type 314.01 ; Generalized anxiety disorder 300.02 and Dysthymic disorder 300.[address] [address] Apr, CAD (coronary artery disease) 414.00 ; HTN (hypertension) 401.9 and Tobacco use 305.1 [facility] [id number] [place] [address] Apr, [facility] [address] [place] [address] Mar, ADHD (attention deficit hyperactivity disorder), combined type 314.01 ; Generalized anxiety disorder 300.02 ; Dysthymic disorder 300.4 ; No condition on Gerton II V71.09 ; Rheumatoid arthritis 714.0 ; Incontinence 788.30 ; Irritable bowel syndrome 564.1 ; Osteoporosis 733.00 and Chronic pain 338.29 [facility] [address] [address] Mar, Agoraphobia with panic disorder 300.21 and Major depressive disorder, recurrent episode, moderate 296.32 [facility] [address] [address] Mar, [facility] [id number] [place] [address] February, [facility] [id number] [place] [address] February, Agoraphobia with panic disorder 300.21 and Major depressive disorder, recurrent episode, moderate 296.32 [facility] [id number] [place] [address] February, [facility] [id number] [place] [address] Jan, [facility] [id number] [place] [address] Jan, [facility] [id number] [place] [address] Dec, [facility] [id number] [place] [address] Dec, [facility] [address] [address] Dec, [facility] [id number] [place] [address] Dec, [facility] [address] [place] [address] Dec, [facility] [place] [facility] [address] [id number] [place] [address] Dec, [facility] [place] [facility] [address] [id number] [place] [address] Nov, 2014 [facility] [place] [facility] [address] [id number] [place] [address] Nov, 2014 [facility] [place] [facility] [address] [id number] [place] [address] Nov, 2014 [facility] [place] [facility] [address] [id number] [place] [address] Nov, 2014 [facility] [place] [facility] [address] [id number] [place] [address] Nov, 2014 [facility] [place] [facility] [address] [id number] [place] [address] Nov, [facility] [place] [facility] [address] [id number] [place] [address] Nov, [facility] [place] [facility] [address] [id number] [place] [address] Nov, [facility] [place] [facility] [address] [facility] [id number] [place] [address] Oct, [facility] [place] [facility] [address] [id number] [place] [address] Oct, [facility] [place] [facility] [address] [id number] [place] [address] Oct, [facility] [place] [facility] [address] [id number] [place] [address] Oct, [facility] [place] [facility] [address] [id number] [place] [address] Oct, [facility] [place] [facility] [address] [facility] [id number] [place] [address] Oct, [facility] [place] [facility] [address] [id number] [place] [address] Sep, [facility] [place] [facility] [address] [id number] [place] [address] Sep, [facility] [place] [facility] [address] [id number] [place] [address] Sep, [facility] [place] [facility] [address] [id number] [place] [address] Sep, [facility] [place] [facility] [address] [id number] [place] [address] Sep, [facility] [place] [facility] [address] [id number] [place] [address] Sep, [facility] [place] [facility] [address] [id number] [place] [address] Sep, [facility] [place] [facility] [address] [id number] [place] [address] Aug, [facility] [place] [facility] [address] [id number] [place] [address] Aug, [facility] [place] [facility] [address] [id number] [place] [address] Aug, [facility] [place] [facility] [address] [id number] [place] [address] Aug, [facility] [place] [facility] [address] [id number] [address] Aug, [facility] [place] [facility] [address] [id number] [place] [address] Aug, [facility] [place] [facility] [address] [id number] [address] Jul, [facility] [place] [facility] [address] [id number] [place] [address] Jul, [facility] [place] [facility] [address] [id number] [place] [address] Jul, [facility] [place] [facility] [address] [id number] [place] [address] Jul, [facility] [place] [facility] [address] [id number] [place] [address] Jul, [facility] [place] [facility] [address] [id number] [place] [address] Jul, [facility] [place] [facility] [address] [id number] [place] [address] Jun, [facility] [place] [facility] [address] [id number] [place] [address] Jun, [facility] [place] [facility] [address] [id number] [place] [address] May, [facility] [place] [facility] [address] [id number] [place] [address] May, [facility] [place] [facility] [address] [id number] [place] [address] Apr, [facility] [place] [facility] [address] [id number] [place] [address] Apr, [facility] [place] [facility] [address] [id number] [place] [address] Apr, [facility] [place] [facility] [address] [id number] [place] [address] Apr, [facility] [place] [facility] [address] [id number] [place] [address] Mar, [facility] [place] [facility] [address] [id number] [place] [address] Mar, [facility] [place] [facility] [address] [id number] [place] [address] Mar, [facility] [place] [facility] [address] [id number] [place] [address] Mar, [facility] [place] [facility] [address] [id number] [place] [address] February, [facility] [place] [facility] [address] [id number] [place] [address] February, [facility] [place] [facility] [address] [id number] [place] [address] February, [facility] [place] [facility] [address] [id number] [place] [address] February, [facility] [place] [facility] [address] [id number] [place] [address] February, [facility] [place] [facility] [address] [id number] [place] [address] February, [facility] [place] [facility] [address] [id number] [place] [address] Jan, [facility] [place] [facility] [address] [id number] [place] [address] Jan, [facility] [place] [facility] [address] [id number] [place] [address] Dec, [facility] [place] [facility] [address] [id number] [place] [address] Dec, [facility] [place] [facility] [address] [id number] [place] [address] Nov, [facility] [place] [facility] [address] [id number] [place] [address] Nov, [facility] [place] [facility] [address] [id number] [place] [address] Oct, [facility] [place] [facility] [address] [id number] [place] [address] Oct, [facility] [place] [facility] [address] [id number] [place] [address] Oct, [facility] [place] [facility] [address] [id number] [place] [address] Oct, [facility] [place] [facility] [address] [id number] [place] [address] Sep, [facility] [place] [facility] [address] [id number] [place] [address] Sep, [facility] [place] [facility] [address] [id number] [place] [address] Sep, [facility] [place] [facility] [address] [id number] [place] [address] Sep, [facility] [place] [facility] [address] [id number] [place] [address] Sep, [facility] [place] [facility] [address] [id number] [place] [address] Sep, [facility] [place] [facility] [address] [id number] [place] [address] Sep, [facility] [place] [facility] [address] [id number] [place] [address] Sep, [facility] [place] [facility] [address] [id number] [place] [address] Aug, [facility] [place] [facility] [address] [id number] [place] [address] Aug, [facility] [place] [facility] [address] [id number], [place] [address] Aug, [facility] [place] [facility] [address] [id number], [place] [address] Aug, [facility] [place] [facility] [address] [id number] [place] [address] Aug, [facility] [place] [facility] [address] [id number], [place] [address] Aug, [facility] [place] [facility] [address] [id number] [place] [address] Aug, [facility] [place] [facility] [address] [id number] [place] [address] Aug, [facility] [address] [id number] [place] [address] Aug, [facility] [address] [id number] [place] [address] Jul, [facility] [address] [id number] [place] [address] Jun, [facility] [address] [id number] [place] [address] May, [facility] [address] [id number] [place] [address] May, [facility] [address] [id number] [place] [address] May, [facility] [address] [id number] [place] [address] Apr, [facility] [address] [id number] [place] [address] Mar, [facility] [address] [id number] [place] [address] February, [facility] [address] [id number] [place] [address] Oct, [facility] [address] [id number] [place] [address] Oct, [facility] [address] [id number] [place] [address] Oct, [facility] [address] [id number] [place] [address] Oct, [facility] [address] [id number] [place] [address] Oct, [facility] [address] [id number] [place] [address] Oct, [facility] [place] [facility] [address] [id number] [place] [address] Sep, [facility] [place] [facility] [address] [id number] [place] [address] Sep, [facility] [place] [facility] [address] [id number] [place] [address] Aug, [facility] [place] [facility] [address] [id number] [place] [address] Aug, [facility] [place] [facility] [address] [id number] [place] [address] Jul, [facility] [place] [facility] [address] [id number] [place] [address] Jul, [facility] [place] [facility] [address] [id number] [place] [address] Jul, [facility] [place] [facility] [address] [id number], [place] [address] Jul, [facility] [place] [facility] [address] [id number] [place] [address] Jul, [facility] [place] [facility] [address] [id number], [place] [address] Jul, [facility] [place] [facility] [address] [id number], [place] [address] Jul, [facility] [place] [facility] [address] [id number], [place] [address] Jul, [facility] [place] [facility] [address] [id number] [place] [address] 16 Jun, 2012 [facility] [place] [facility] [address] [id number], [place] [address] Jun, [facility] [place] [facility] [address] [facility] [id number], [place] [address] May, [facility] [place] [facility] [address] [id number], [place] [address] Apr, [facility] [place] [facility] [address] [id number] [place] [address] Mar, [facility] [place] [facility] [address] [id number] [place] [address] Mar, [facility] [place] [facility] [address] [id number] [place] [address] Mar, [facility] [place] [facility] [address] [id number] [place] [address] Mar, [facility] [place] [facility] [address] [id number] [place] [address] Jan, [facility] [place] [facility] [address] [id number] [place] [address] Nov, [facility] [place] [facility] [address] [id number] [place] [address] Nov, [facility] [place] [facility] [address] [id number] [place] [address] Nov, [facility] [place] [facility] [address] [id number] [place] [address] Oct, [facility] [place] [facility] [address] [facility] [id number] [place] [address] Sep, [facility] [place] [facility] [address] [id number] [place] [address] Sep, [facility] [place] [facility] [address] [id number] [place] [address] Aug, [facility] [place] [facility] [address] [id number] [place] [address] Aug, [facility] [place] [facility] [address] [id number] [place] [address] Aug, [facility] [place] [facility] [address] [id number], [place] [address] Aug, [facility] [address] [id number] [address] Jul, [facility] [address] [address] May, [facility] [address] [address] Jan, [facility] [id number] [place] [address] Nov, [facility] [id number] [place] [address] Apr, [facility] [id number] [place] [address] Dec, [facility] [address] [address] Nov, IMMUNIZATIONS No Known Immunizations SOCIAL HISTORY Never Assessed REASON FOR VISIT PLAN OF CARE VITAL SIGNS MEDICATIONS Unknown Medications RESULTS No Results PROCEDURES No Known procedures INSTRUCTIONS MEDICATIONS ADMINISTERED No Known Medications MEDICAL (GENERAL) HISTORY Type Description Date Medical History Cardiovascular vyezgeiq-[facility], non-obstructive per (01/2011) Dr. Mendoza Medical History Stress test 03/07/13-Dr. 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
--- OUTSIDE RECORDS SUMMARY | 2019-05-22 07:31 | XMS REPORT ---
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 Name Role Phone Migration, Doctor Unavailable Unavailable PROBLEMS Type Condition ICD9-CM Code UCA36-LL Code Onset Dates Condition Status SNOMED Code Problem Hemiparesis of left nondominant side as late effect of cerebral infarction I69.354 Active 922501659 Problem Generalized anxiety disorder F41.1 Active 52500354 Problem Morbid (severe) obesity due to excess calories E66.01 Active 149331611 Problem Chronic pain syndrome G89.4 Active 928951819 Problem ADHD (attention deficit hyperactivity disorder), combined type F90.2 Active 67636752 Problem Asthma J45.909 Active 954155859 Problem Rheumatoid arthritis M06.9 Active 40389907 Problem Anxiety F41.9 Active 06701903 Problem Gastroesophageal reflux disease with esophagitis K21.0 Active 583481094 Problem Neuropathy G62.9 Active 137153368 Problem Hyperinsulinemia E16.1 Active 54744600 Problem Obstructive sleep apnea G47.33 Active 03742309 Problem Other insomnia G47.09 Active 106383540 Problem Cerebrovascular accident (CVA), unspecified mechanism I63.9 Active 034640175 Problem Other terminal system operator (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 Active 774759408 Problem Sleep apnea in adult G47.30 Active 90067719 Problem Dysthymic disorder F34.1 Active 58685807 Problem Irritable bowel syndrome with diarrhea K58.0 Active 333673422 Problem Panic attacks F41.0 Active 323580290 Problem Mild episode of recurrent major depressive disorder F33.0 Active 945514257 Problem Chronic obstructive pulmonary disease J44.9 Active 89499756 Problem Arteriosclerotic coronary artery disease I25.10 Active 16974795 Problem Hemiplegia affecting left nondominant side G81.94 Active Problem Hypertension I10 Active 92732770 Problem Mixed hyperlipidemia E78.2 Active 214532912 Problem Seasonal allergies J30.2 Active 302990858 Problem Primary insomnia F51.01 Active 7074334 Problem Paroxysmal atrial fibrillation I48.0 Active 383729217 Problem Unsteady gait R26.81 Active 08238024 ALLERGIES No Information ENCOUNTERS Encounter Location Date Diagnosis [facility] [id number] [place] [address] May, [facility] [facility] [id number] [place] [address] February, Generalized anxiety disorder F41.1 and Mild episode of recurrent major depressive disorder F33.0 [facility] [id number] [place] [address] Jan, [facility] [id number] [place] [id number] Jan, Herpes zoster without complication B02.9 [facility] [id number] [place] [address] Jan, Other insomnia G47.09 ; Hypertension I10 ; Rheumatoid arthritis M06.9 ; Mild episode of recurrent major depressive disorder F33.0 ; Breast cancer screening Z12.39 ; Arteriosclerotic coronary artery disease I25.10 ; Morbid (severe) obesity due to excess calories E66.01 and Hemiparesis of left nondominant side as late effect of cerebral infarction I69.354 [facility] [facility] [id number] [place] [address] Jan, Asthma J45.909 and Other insomnia G47.09 [facility] [id number] [place] [address] Jan, [facility] [id number] [place] [address] Dec, Generalized anxiety disorder F41.1 and Mild episode of recurrent major depressive disorder F33.0 [facility] [id number] [place] [address] Dec, [facility] [id number] [place] [address] Dec, [place] [address] [place] [address] Dec, [facility] [address] [id number] [id number] Nov, Viral upper respiratory tract infection J06.9 [facility] [address] [place] [address] Nov, [facility] [id number] [place] [address] Oct, [facility] [id number] [place] [address] Sep, [facility] [id number] [place] [address] Sep, [facility] [id number] [place] [address] Sep, [facility] [id number] [place] [address] Sep, Orthostatic hypotension I95.1 ; Shortness of breath R06.02 ; Right foot pain M79.671 and Morbid (severe) obesity due to excess calories E66.01 [facility] [id number] [place] [address] Aug, [facility] [id number] [address] Aug, [facility] [id number] [place] [address] Aug, [facility] [id number] [place] [address] Aug, [facility] [id number] [place] [address] Aug, [facility] [address] [address] Jul, [facility] [id number] [place] [address] Jul, [facility] [address] [address] Jul, [facility] [address] [place] [address] Jul, [facility] [address] [address] Jul, [facility] [address] [place] [address] Jul, [facility] [address] [place] [id number] Jul, Hemiplegia affecting left nondominant side G81.94 ; Chronic obstructive pulmonary disease J44.9 and Weakness R53.1 [facility] [address] [place] [address] Jul, [facility] [employer] [address] [place] [id number] Jul, Weakness R53.1 ; Paroxysmal atrial fibrillation I48.0 and Unsteady gait R26.81 [facility] [address] [place] [address] Jul, Tobacco abuse Z72.0 [facility] [address] [place] [id number] Jun, History of acute respiratory failure Z87.09 ; Weight gain R63.5 and Tobacco abuse Z72.0 [facility] [address] [address] Jun, [facility] [address] [place] [address] May, Primary insomnia F51.01 [facility] [address] [place] [address] May, Mild episode of recurrent major depressive disorder F33.0 [facility] [address] [place] [address] May, [facility] [id number] [place] [address] 15 May, 2018 Chronic obstructive pulmonary disease, unspecified COPD type J44.9 ; Primary insomnia F51.01 ; Fatigue, unspecified type R53.83 and Weight gain R63.5 [place] [id number] [place] [address] May, Thrush B37.0 [facility] [id number] [place] [address] May, Mild episode of recurrent major depressive disorder F33.0 and Generalized anxiety disorder F41.1 [facility] [place] [id number] [place] [address] May, Thrush B37.0 [place] [id number] [place] [address] Apr, Cough R05 [facility] [id number] [place] [address] Mar, Mild episode of recurrent major depressive disorder F33.0 [facility] [id number] [place] [address] Mar, Mild episode of recurrent major depressive disorder F33.0 and Generalized anxiety disorder F41.1 [facility] [id number] [place] [address] Mar, Seasonal allergies J30.2 [facility] [id number] [place] [address] Mar, Seasonal allergies J30.2 [facility] [id number] [place] [address] February, Generalized anxiety disorder F41.1 [facility] [address] [place] [address] February, Cough R05 and Seasonal allergies J30.2 [facility] [id number] [place] [address] February, Generalized anxiety disorder F41.1 and Mild episode of recurrent major depressive disorder F33.0 [facility] [id number] [place] [address] February, Other terminal system operator (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 ; Anxiety F41.9 ; Panic attacks F41.0 and Irritable bowel syndrome with diarrhea K58.0 [facility] [address] [address] February, [facility] [id number] [place] [address] Jan, Mixed hyperlipidemia E78.2 [facility] [id number] [place] [address] Jan, [facility] [id number] [place] [address] Jan, [facility] [id number] [place] [address] Jan, [facility] [id number] [place] [address] Jan, [facility] [id number] [place] [address] Dec, [facility] [id number] [place] [address] Dec, [facility] [id number] [place] [address] Dec, [facility] [id number] [place] [address] Nov, Dysthymic disorder F34.1 [facility] [id number] [place] [address] Oct, [facility] [id number] [place] [address] Oct, [facility] [id number] [place] [address] Oct, [facility] [facility] [address] [address] Oct, Diarrhea, unspecified type R19.7 and Dysuria R30.[address] [address] Oct, [facility] [address] [address] Sep, [facility] [facility] [address] [address] Sep, [facility] [address] [address] Sep, Anxiety F41.[address] [address] Sep, Cerebrovascular accident (CVA), unspecified mechanism I63.9 ; Mixed hyperlipidemia E78.2 ; Gastroesophageal reflux disease with esophagitis K21.0 and Anxiety F41.[address] [address] Sep, [place] [id number] [place] [address] Aug, Chronic obstructive pulmonary disease, unspecified J44.9 ; Asthma J45.909 ; Nausea R11.0 ; Dysthymic disorder F34.1 ; Cerebrovascular accident (CVA), unspecified mechanism I63.9 and Rheumatoid arthritis M06.[address] [address] Aug, Nausea R11.0 ; Encounter for immunization Z23 ; Sleep apnea in adult G47.30 ; Rheumatoid arthritis involving multiple sites, unspecified rheumatoid factor presence M06.9 ; Generalized anxiety disorder F41.1 ; Dysthymic disorder F34.1 and Asthma J45.909 [facility] [id number] [place] [address] Jul, [facility] [facility] [address] [address] May, ADHD (attention deficit hyperactivity disorder), combined type F90.2 ; Generalized anxiety disorder F41.1 and Persistent depressive disorder F34.1 [place] [address] [address] May, Cerebrovascular accident (CVA), unspecified mechanism I63.9 [place] [address] [address] Apr, Mixed hyperlipidemia E78.2 and Cerebrovascular accident (CVA), unspecified mechanism I63.9 [place] [address] [address] Apr, Generalized anxiety disorder F41.1 [facility] [address] [address] Apr, Bronchitis J40 and Tobacco use Z72.0 [facility] [address] [address] Apr, Mixed hyperlipidemia E78.2 [place] [address] [address] Apr, Other terminal system operator (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 [place] [address] [address] Apr, [place] [id number] [place] [address] Apr, Generalized anxiety disorder F41.1 [place] [address] [address] Apr, Obstructive sleep apnea G47.33 and Hyperinsulinemia E16.1 [place] [facility] [address] [address] Apr, ADHD (attention deficit hyperactivity disorder), combined type F90.2 ; Generalized anxiety disorder F41.1 and Persistent depressive disorder F34.1 [facility] [id number] [place] [address] Mar, [facility] [id number] [place] [address] Mar, Generalized anxiety disorder F41.1 [facility] [id number] [place] [address] Mar, Tarsal tunnel syndrome of both lower extremities G57.53 [facility] [id number] [place] [address] February, [facility] [id number] [place] [address] February, [facility] [id number] [place] [address] February, Asthma J45.909 [facility] [id number] [place] [address] February, Generalized anxiety disorder F41.1 [facility] [id number] [place] [address] February, Hypoxemia R09.02 ; Hyperglycemia R73.9 ; Rheumatoid arthritis M06.9 and Generalized anxiety disorder F41.1 [facility] [id number] [place] [address] February, [facility] [id number] [place] [address] Jan, Chronic obstructive pulmonary disease, unspecified J44.9 [facility] [id number] [place] [address] Jan, Chronic pain syndrome G89.4 [facility] [id number] [place] [address] Jan, Hypoxemia R09.02 [place] [id number] [place] [address] Jan, [facility] [id number] [place] [address] Jan, Chronic obstructive pulmonary disease, unspecified J44.9 ; Hypoxemia R09.02 ; Other insomnia G47.09 and Left anterior shoulder pain M25.512 [facility] [address] [address] Jan, Numbness in feet R20.0 and Neuropathy G62.9 [facility] [id number] [place] [address] Jan, [facility] [id number] [place] [address] Dec, Acute pain of left shoulder M25.512 [facility] [id number] [place] [address] Dec, Acute pain of left shoulder M25.512 [facility] [id number] [place] [address] Dec, Generalized anxiety disorder F41.1 [facility] [id number] [place] [address] Dec, Generalized anxiety disorder F41.1 [facility] [facility] [id number] [place] [address] Nov, ADHD (attention deficit hyperactivity disorder), combined type F90.2 ; Generalized anxiety disorder F41.1 and Persistent depressive disorder F34.1 [facility] [id number] [place] [address] Nov, Acute pain of left shoulder M25.512 [facility] [id number] [place] [address] Nov, ADHD (attention deficit hyperactivity disorder), combined type F90.2 ; Generalized anxiety disorder F41.1 and Persistent depressive disorder F34.1 [facility] [address] [place] [address] 17 Nov, 2016 Chronic pain syndrome G89.4 [facility] [id number] [place] [address] 13 Nov, 2016 Chronic pain syndrome G89.4 [facility] [id number] [place] [address] 08 Nov, 2016 Acute pain of left shoulder M25.512 [facility] [id number] [place] [address] Nov, Generalized anxiety disorder F41.1 [facility] [id number] [place] [address] Nov, Acute pain of left shoulder M25.512 [facility] [id number] [place] [address] Nov, ADHD (attention deficit hyperactivity disorder), combined type F90.2 ; Generalized anxiety disorder F41.1 and Persistent depressive disorder F34.1 [place] [address] [place] [address] Nov, Acute pain of left shoulder M25.512 ; Generalized anxiety disorder F41.1 ; Chronic pain syndrome G89.4 ; Hyperinsulinemia E16.1 ; Pain of left foot M79.672 and Pain in right foot M79.671 [place] [address] [place] [address] Oct, ADHD (attention deficit hyperactivity disorder), combined type F90.2 ; Generalized anxiety disorder F41.1 and Dysthymic disorder F34.1 [place] [address] [place] [address] Sep, [place] [address] [place] [address] Sep, [place] [facility] [id number] [place] [address] Sep, Routine gynecological examination V72.31 ; Cervical cancer screening Z12.4 ; Breast cancer screening Z12.39 ; Colon cancer screening Z12.11 ; Hypokalemia E87.6 ; Herpes simplex type 1 infection B00.9 and Abscess of right axilla L02.411 [place] [id number] [place] [address] Sep, [place] [address] [address] Sep, ADHD (attention deficit hyperactivity disorder), combined type F90.2 ; Generalized anxiety disorder F41.1 and Dysthymic disorder F34.1 [place] [address] [address] Aug, [place] [address] [address] Aug, [place] [address] [address] Aug, Generalized anxiety disorder F41.1 [place] [address] [address] Aug, ADHD (attention deficit hyperactivity disorder), combined type F90.2 ; Generalized anxiety disorder F41.1 and Dysthymic disorder F34.1 [place] [id number] [place] [address] Jul, Chronic pain syndrome G89.4 ; Hypertension I10 ; Hypokalemia E87.6 ; Asthma J45.909 and Nausea R11.0 [place] [id number] [place] [address] Jul, [place] [address] [address] Jul, Asthma J45.909 [place] [id number] [place] [address] 04 Oct, 2016 ADHD (attention deficit hyperactivity disorder), combined type F90.2 ; Generalized anxiety disorder F41.1 and Dysthymic disorder F34.1 [place] [address] [address] Jul, [place] [address] [address] Jul, Hypertension I10 ; Arteriosclerotic coronary artery disease I25.10 ; Mixed hyperlipidemia E78.2 ; Other terminal system operator (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 and Hyperglycemia R73.9 [place] [address] [address] 16 Jun, 2016 Hypokalemia E87.6 and Hyperglycemia R73.9 [place] [address] [address] 14 Jun, 2016 [place] [address] [address] Jun, Abnormal kidney function N28.9 [place] [address] [address] Jun, [place] [address] [address] Jun, ADHD (attention deficit hyperactivity disorder), combined type F90.2 ; Generalized anxiety disorder F41.1 and Dysthymic disorder F34.1 [place] [id number] [place] [address] Jun, Generalized anxiety disorder F41.1 and Dysthymic disorder F34.1 [place] [id number] [place] [address] Jun, Hypokalemia E87.6 [place] [address] [address] May, Hypokalemia E87.6 ; Vertigo R42 and Hyperinsulinemia E16.1 [place] [address] [address] May, [place] [address] [address] May, Abnormal kidney function N28.9 ; Hyperinsulinemia E16.1 and Nausea R11.0 [place] [address] [address] May, Hypokalemia E87.6 ; Nausea R11.0 ; Epigastric pain R10.13 ; Dehydration E86.0 ; Diaphoresis R61 and Right arm pain M79.601 [place] [address] [address] May, [place] [address] [address] May, Hypokalemia E87.6 [place] [address] [address] May, Hypokalemia E87.6 [place] [address] [address] Apr, [place] [address] [address] Apr, ADHD (attention deficit hyperactivity disorder), combined type F90.2 ; Generalized anxiety disorder F41.1 and Dysthymic disorder F34.1 [place] [address] [address] Apr, Right arm pain M79.601 and Hyperinsulinemia E16.1 [place] [address] [address] Mar, [place] [address] [address] Mar, [place] [address] [address] Mar, Hyperinsulinemia E16.1 ; Hyperlipidemia, unspecified hyperlipidemia type E78.5 ; Central venous catheter in place Z78.9 ; Generalized anxiety disorder F41.1 and Urinary tract infection, site not specified N39.0 [place] [address] [address] Mar, ADHD (attention deficit hyperactivity disorder), combined type F90.2 ; Generalized anxiety disorder F41.1 and Dysthymic disorder F34.1 [place] [address] [address] February, ADHD (attention deficit hyperactivity disorder), combined type F90.2 ; Generalized anxiety disorder F41.1 and Dysthymic disorder F34.1 [place] [address] [address] February, [place] [address] [address] February, [place] [address] [address] February, Hypertension I10 and Weight gain R63.5 [place] [address] [address] February, Major depressive disorder, recurrent, moderate F33.1 and Generalized anxiety disorder F41.1 [place] [address] [address] [place] [id number] [place] [address] February, ADHD (attention deficit hyperactivity disorder), combined type F90.2 ; Generalized anxiety disorder F41.1 and Dysthymic disorder F34.1 [place] [address] [place] [id number] [place] [address] February, [place] [address] [address] February, Asthma J45.909 ; Weight gain R63.5 ; Hypertension I10 ; Rheumatoid arthritis M06.9 and Chronic pain syndrome G89.4 [place] [address] [address] Jan, ADHD (attention deficit hyperactivity disorder), combined type F90.2 ; Generalized anxiety disorder F41.1 and Dysthymic disorder F34.1 [facility] [id number] [address] Dec, ADHD (attention deficit hyperactivity disorder), combined type F90.2 ; Generalized anxiety disorder F41.1 and Dysthymic disorder F34.1 [facility] [facility] [id number] [place] [address] Dec, [facility] [id number], [place] [address] Nov, [facility] [id number] [place] [address] Nov, [facility] [address] [id number] [address] Nov, [facility] [id number] [address] Nov, [facility] [id number], [place] [address] Oct, [facility] [id number], [place] [address] Oct, [facility] [id number], [place] [address] Oct, [facility] [id number], [place] [address] Sep, [facility] [id number], [place] [address] Sep, [facility] [id number] [place] [address] Sep, Agoraphobia with panic disorder F40.01 ; Attention-deficit hyperactivity disorder, combined type F90.2 and Dysthymic disorder F34.1 [facility] [id number] [address] Aug, [facility] [id number] [place] [address] Aug, [facility] [id number] [place] [address] Aug, [facility] [id number] [place] [address] Aug, Dysthymic disorder F34.1 ; Generalized anxiety disorder F41.1 and ADHD (attention deficit hyperactivity disorder), combined type F90.2 [facility] [id number] [place] [address] Aug, ADHD (attention deficit hyperactivity disorder), combined type F90.2 ; Generalized anxiety disorder F41.1 and Dysthymic disorder F34.1 [facility] [id number] [place] [address] Jul, Urinary tract infection, site not specified N39.0 ; Hypotension, unspecified I95.9 and Breast cancer screening Z12.39 [facility] [id number] [place] [address] Jul, [facility] [id number] [place] [address] Jul, [facility] [id number] [place] [address] Jul, Urinary tract infection, site not specified N39.0 ; Nausea R11.0 ; Gastroenteritis K52.9 ; Renal failure N19 and Other hypotension I95.89 [facility] [id number] [place] [address] Jul, [facility] [id number] [place] [address] Jul, [facility] [id number] [place] [address] Jul, [place] [id number], [place] [address] Jun, [id number] [place] [address] Jun, Major depression in partial remission 296.25 ; Generalized anxiety disorder 300.02 and ADHD, predominantly inattentive type 314.01 [id number] [place] [address] May, [address] [place] [id number] [place] [address] Apr, Major depressive disorder, recurrent episode, severe, without mention of psychotic behavior 296.33 ; Agoraphobia with panic disorder 300.21 and Generalized anxiety disorder 300.[id number] [place] [address] Apr, ADHD (attention deficit hyperactivity disorder), combined type 314.01 ; Generalized anxiety disorder 300.02 and Dysthymic disorder 300.4 [address] [id number] [place] [address] Apr, CAD (coronary artery disease) 414.00 ; HTN (hypertension) 401.9 and Tobacco use 305.[id number] [place] [address] Apr, [id number] [place] [address] Mar, ADHD (attention deficit hyperactivity disorder), combined type 314.01 ; Generalized anxiety disorder 300.02 ; Dysthymic disorder 300.4 ; No condition on [place] II V71.09 ; Rheumatoid arthritis 714.0 ; Incontinence 788.30 ; Irritable bowel syndrome 564.1 ; Osteoporosis 733.00 and Chronic pain 338.29 [id number] [place] [address] Mar, Agoraphobia with panic disorder 300.21 and Major depressive disorder, recurrent episode, moderate 296.32 [id number] [address] Mar, [facility] [id number], [place] [address] February, [facility] [address], [place] [address] February, Agoraphobia with panic disorder 300.21 and Major depressive disorder, recurrent episode, moderate 296.32 [facility] [address], [place] [address] February, [facility] [id number] [address] Jan, [facility] [id number], [place] [address] Jan, [facility] [id number], [place] [address] Dec, [facility] [address], [place] [address] Dec, [facility] [address], [place] [address] Dec, [facility] [address], [place] [address] Dec, [facility] [address], [place] [address] Dec, [facility] [address], [place] [address] Dec, [facility] [id number], [place] [address] Nov, [facility] [id number], [place] [address] Nov, [facility] [id number] [address] Nov, [facility] [place] [facility] [address] [id number] [place] [address] Nov, 2014 [facility] [place] [facility] [address] [id number] [place] [address] Nov, 2014 [facility] [place] [facility] [address] [id number] [place] [address] Nov, 2014 [facility] [place] [facility] [address] [id number] [place] [address] Nov, 2014 [facility] [place] [facility] [address] [id number] [place] [address] Nov, [facility] [place] [facility] [address] [id number] [place] [address] Oct, [facility] [place] [facility] [address] [id number] [place] [address] Oct, [facility] [place] [facility] [address] [id number] [place] [address] Oct, [facility] [place] [facility] [address] [id number] [place] [address] Oct, [facility] [place] [facility] [address] [facility] [id number] [place] [address] Oct, [facility] [place] [facility] [address] [facility] [id number] [place] [address] Oct, [facility] [place] [facility] [address] [id number] [place] [address] Sep, [facility] [place] [facility] [address] [id number] [place] [address] Sep, [facility] [place] [facility] [address] [id number] [place] [address] Sep, [facility] [place] [facility] [address] [id number] [place] [address] Sep, [facility] [place] [facility] [address] [id number], [place] [address] Sep, [facility] [place] [facility] [address] [id number] [place] [address] Sep, [facility] [place] [facility] [address] [id number] [place] [address] Sep, [facility] [place] [facility] [address] [id number] [place] [address] Aug, [facility] [place] [facility] [address] [id number] [place] [address] Aug, [facility] [place] [facility] [address] [id number] [place] [address] Aug, [facility] [place] [facility] [address] [id number] [place] [address] Aug, [facility] [place] [facility] [address] [id number] [place] [address] Aug, [facility] [place] [facility] [address] [id number] [place] [address] Aug, [facility] [place] [facility] [address] [id number], [place] [address] Jul, [facility] [place] [facility] [address] [id number], [place] [address] Jul, [facility] [place] [facility] [address] [id number], [place] [address] Jul, [facility] [place] [facility] [address] [id number], [place] [address] Jul, [facility] [place] [facility] [address] [id number], [place] [address] Jul, [facility] [place] [facility] [address] [id number], [place] [address] Jul, [facility] [place] [facility] [address] [id number] [place] [address] Jun, [facility] [place] [facility] [address] [id number] [place] [address] Jun, [facility] [place] [facility] [address] [id number] [place] [address] May, [facility] [place] [facility] [address] [id number] [place] [address] May, [facility] [place] [facility] [address] [id number] [place] [address] Apr, [facility] [place] [facility] [address] [id number] [place] [address] Apr, [facility] [place] [facility] [address] [id number] [place] [address] Apr, [facility] [place] [facility] [address] [id number] [place] [address] Apr, [facility] [place] [facility] [address] [id number] [place] [address] Mar, [facility] [place] [facility] [address] [id number] [place] [address] Mar, [facility] [place] [facility] [address] [id number] [place] [address] Mar, [facility] [place] [facility] [address] [id number] [place] [address] Mar, [facility] [place] [facility] [address] [id number] [place] [address] February, [facility] [place] [facility] [address] [id number] [place] [address] February, [facility] [place] [facility] [address] [id number] [place] [address] February, [facility] [place] [facility] [address] [id number] [place] [address] February, [facility] [place] [facility] [address] [id number] [place] [address] February, [facility] [place] [facility] [address] [id number] [place] [address] February, [facility] [place] [facility] [address] [id number] [place] [address] Jan, [facility] [place] [facility] [address] [id number] [place] [address] Jan, [facility] [place] [facility] [address] [id number] [place] [address] Dec, [facility] [place] [facility] [address] [id number] [place] [address] Dec, [facility] [place] [facility] [address] [id number] [place] [address] Nov, [facility] [place] [facility] [address] [id number] [place] [address] Nov, [facility] [place] [facility] [address] [id number] [place] [address] Oct, [facility] [place] [facility] [address] [id number] [place] [address] Oct, [facility] [place] [facility] [address] [id number] [place] [address] Oct, [facility] [place] [facility] [address] [id number] [place] [address] Oct, [facility] [place] [facility] [address] [id number], [place] [address] Sep, [facility] [place] [facility] [address] [id number] [place] [address] Sep, [facility] [place] [facility] [address] [id number] [place] [address] Sep, [facility] [place] [facility] [address] [id number] [place] [address] Sep, [facility] [place] [facility] [address] [id number] [place] [address] 06 Sep, 2013 [facility] [address] [id number] [place] [address] 06 Sep, 2013 [facility] [place] [facility] [address] [id number] [place] [address] Sep, [facility] [address] [id number] [place] [address] Sep, [facility] [place] [facility] [address] [id number] [place] [address] Aug, [facility] [place] [facility] [address] [id number] [place] [address] Aug, [facility] [place] [facility] [address] [id number] [place] [address] Aug, [facility] [address] [id number] [place] [address] Aug, [facility] [place] [facility] [address] [id number] [place] [address] Aug, [facility] [place] [facility] [address] [id number] [place] [address] Aug, [facility] [place] [facility] [address] [facility] [id number] [place] [address] Aug, [facility] [place] [facility] [address] [id number] [place] [address] Aug, [facility] [place] [facility] [address] [id number], [place] [address] Aug, [facility] [place] [facility] [address] [id number] [place] [address] Jul, [facility] [place] [facility] [address] [id number] [place] [address] Jun, [facility] [place] [facility] [address] [id number], [place] [address] May, [facility] [place] [facility] [address] [id number] [place] [address] May, [facility] [address] [id number] [place] [address] May, [facility] [place] [facility] [address] [id number] [place] [address] Apr, [facility] [address] [id number] [place] [address] Mar, [facility] [address] [id number] [place] [address] February, [facility] [address] [id number] [place] [address] Oct, [facility] [address] [id number] [place] [address] Oct, [facility] [address] [id number] [place] [address] Oct, [facility] [address] [id number] [place] [address] Oct, [facility] [address] [id number] [place] [address] Oct, [facility] [address] [id number] [place] [address] Oct, [facility] [address] [id number] [place] [address] Sep, [facility] [place] [facility] [address] [id number] [place] [address] Sep, [facility] [place] [facility] [address] [id number] [place] [address] Aug, [facility] [place] [facility] [address] [id number] [place] [address] Aug, [facility] [place] [facility] [address] [id number] [place] [address] Jul, [facility] [place] [facility] [address] [id number] [place] [address] Jul, [facility] [place] [facility] [address] [id number] [place] [address] Jul, [facility] [place] [facility] [address] [id number] [place] [address] Jul, [facility] [place] [facility] [address] [id number] [place] [address] Jul, [facility] [place] [facility] [address] [id number] [place] [address] Jul, [facility] [place] [facility] [address] [id number] [place] [address] Jul, [facility] [place] [facility] [address] [id number] [place] [address] Jul, [facility] [place] [facility] [address] [id number] [place] [address] Jun, [facility] [place] [facility] [address] [id number] [place] [address] Jun, [facility] [place] [facility] [address] [id number] [place] [address] May, [facility] [place] [facility] [address] [id number], [place] [address] Apr, [facility] [place] [facility] [address] [id number], [place] [address] Mar, [facility] [place] [facility] [address] [id number] [place] [address] Mar, [facility] [place] [facility] [address] [facility] [id number] [place] [address] Mar, [facility] [place] [facility] [address] [facility] [id number] [place] [address] Mar, [facility] [place] [facility] [address] [id number] [place] [address] Jan, [facility] [address] [id number] [place] [address] Nov, [facility] [place] [facility] [address] [id number] [place] [address] Nov, [facility] [place] [facility] [address] [id number] [place] [address] Nov, [facility] [place] [facility] [address] [id number] [place] [address] Oct, [facility] [place] [facility] [address] [id number] [place] [address] Sep, [facility] [place] [facility] [address] [id number] [place] [address] Sep, [facility] [place] [facility] [address] [id number] [place] [address] Aug, [facility] [place] [facility] [address] [id number] [place] [address] Aug, [facility] [place] [facility] [address] [id number] [place] [address] Aug, [facility] [place] [facility] [address] [id number] [place] [address] Aug, [facility] [place] [facility] [address] [id number] [place] [address] Jul, [facility] [place] [facility] [address] [id number] [place] [address] May, [facility] [place] [facility] [address] [id number] [place] [address] Jan, [facility] [place] [facility] [address] [id number] [place] [address] Nov, [facility] [place] [facility] [address] [id number] [place] [address] Apr, [facility] [address] [facility] [id number] [place] [address] Dec, [facility] [address] [facility] [id number], [place] [address] Nov, IMMUNIZATIONS No Known Immunizations SOCIAL HISTORY Never Assessed [place]AS[place] FOR [place] [place] VITAL SIGNS MEDICATIONS Unknown Medications RESULTS No Results PROCEDURES No Known procedures INSTRUCTIONS MEDICATIONS ADMINISTERED No Known Medications MEDICAL (GENERAL) HISTORY Type Description Date Medical History Cardiovascular uehiirvt-SAU-Vxnjcixe, non-obstructive per (01/2011) Dr. Mendoza Medical History [...] injury 07/10/15-07/11/2015 Hospitalization History Symptomatic Hypokalemia/Nause-[facility]ia [facility] 05/13/16 Hospitalization History Stroke 05/03/2017 Hospitalization History stroke 08/24/2017--09/01/2017
--- OUTSIDE RECORDS SUMMARY | 2019-05-22 07:31 | XMS REPORT ---
Author Author Migration, Doctor Organization [facility] Address Unknown Phone Unavailable Care Team Providers Care Boat Tester Name Role Phone Migration, Doctor Unavailable Unavailable PROBLEMS Type Condition ICD9-CM Code [id number] Code Onset Dates Condition Status SNOMED Code Problem Hemiparesis of left nondominant side as late effect of cerebral infarction I69.354 Active 577353405 Problem Generalized anxiety disorder F41.1 Active 80715112 Problem Morbid (severe) obesity due to excess calories E66.01 Active 630177378 Problem Chronic pain syndrome G89.4 Active 019672221 Problem ADHD (attention deficit hyperactivity disorder), combined type F90.2 Active 21161332 Problem Asthma J45.909 Active 648108164 Problem Rheumatoid arthritis M06.9 Active 27666298 Problem Anxiety F41.9 Active 86231758 Problem Gastroesophageal reflux disease with esophagitis K21.0 Active 147928852 Problem Neuropathy G62.9 Active 851813220 Problem Hyperinsulinemia E16.1 Active 83429620 Problem Obstructive sleep apnea G47.33 Active 41362009 Problem Other insomnia G47.09 Active 268313298 Problem Cerebrovascular accident (CVA), unspecified mechanism I63.9 Active 044814074 Problem 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 Active 001498998 Problem Sleep apnea in adult G47.30 Active 75564597 Problem Dysthymic disorder F34.1 Active 75030393 Problem Irritable bowel syndrome with diarrhea K58.0 Active 278394922 Problem Panic attacks F41.0 Active 990665840 Problem Mild episode of recurrent major depressive disorder F33.0 Active 382935766 Problem Chronic obstructive pulmonary disease J44.9 Active 98157109 Problem Arteriosclerotic coronary artery disease I25.10 Active 62220429 Problem Hemiplegia affecting left nondominant side G81.94 Active Problem Hypertension I10 Active 31544602 Problem Mixed hyperlipidemia E78.2 Active 282035818 Problem Seasonal allergies J30.2 Active 094088937 Problem Primary insomnia F51.01 Active 8614338 Problem Paroxysmal atrial fibrillation I48.0 Active 344002097 Problem Unsteady gait R26.81 Active 13204783 ALLERGIES Substance Reaction Event Type Date Status Oxybutynin 5 Ea Tablet mouth sores Non Drug Allergy Jan, Active Iodinated Contrast Media - Iv Dye Unknown Non Drug Allergy Jan, Active ENCOUNTERS Encounter Location Date Diagnosis [place] [address] [address] May, [place] [address] [place] [id number] [place] [address] Apr, [address] [id number] Mar, [place] [id number] [place] [address] Mar, [place] [id number] [place] [id number] Mar, [place] [id number] [place] [address] Mar, [place] [address] [place] [id number] [place] [address] February, Generalized anxiety disorder F41.1 and Mild episode of recurrent major depressive disorder F33.0 [place] [address] [place] [id number] [place] [address] Jan, [id number] [place] [id number] Jan, Herpes zoster without complication B02.9 [place] [address] [place] [id number] [place] [address] Jan, Other insomnia G47.09 ; Hypertension I10 ; Rheumatoid arthritis M06.9 ; Mild episode of recurrent major depressive disorder F33.0 ; Breast cancer screening Z12.39 ; Arteriosclerotic coronary artery disease I25.10 ; Morbid (severe) obesity due to excess calories E66.01 and Hemiparesis of left nondominant side as late effect of cerebral infarction I69.354 [place] [address] [place] [id number] [place] [address] Jan, Asthma J45.909 and Other insomnia G47.09 [facility] [address] [place] [id number] [place] [address] Jan, [facility] [id number] [place] [address] Dec, Generalized anxiety disorder F41.1 and Mild episode of recurrent major depressive disorder F33.0 [facility] [address] [place] [id number] [place] [address] Dec, [facility] [address] [place] [id number] [place] [address] Dec, [facility] [address] [place] [id number] [place] [address] Dec, [place] [id number] [place] [id number] Nov, Viral upper respiratory tract infection J06.9 [facility] [address] [place] [id number] [place] [address] Nov, [facility] [address] [place] [id number] [place] [address] Oct, [facility] [id number] [place] [address] Sep, [facility] [address] [place] [id number] [place] [address] Sep, [facility] [address] [place] [id number] [place] [address] Sep, [facility] [address] [place] [id number] [place] [address] Sep, Orthostatic hypotension I95.1 ; Shortness of breath R06.02 ; Right foot pain M79.671 and Morbid (severe) obesity due to excess calories E66.01 [facility] [address] [place] [id number] [place] [address] Aug, [facility] [address] [facility] [id number] [address] Aug, [facility] [address] [facility] [id number] [address] Aug, [facility] [address] [facility] [id number] [address] Aug, [facility] [address] [facility] [id number] [address] Aug, [facility] [address] [facility] [id number] [address] Jul, [facility] [address] [facility] [id number] [place] [address] Jul, [facility] [address] [facility] [id number] [place] [address] Jul, [facility] [address] [facility] [id number] [place] [address] Jul, [facility] [address] [facility] [id number] [place] [address] Jul, [facility] [address] [facility] [id number] [place] [address] Jul, [facility] [address] [place] [id number] Jul, Hemiplegia affecting left nondominant side G81.94 ; Chronic obstructive pulmonary disease J44.9 and Weakness R53.1 [facility] [address] [facility] [id number] [address] Jul, [facility] [address] [place] [id number] Jul, Weakness R53.1 ; Paroxysmal atrial fibrillation I48.0 and Unsteady gait R26.81 [facility] [address] [facility] [id number] [place] [address] Jul, Tobacco abuse Z72.0 [facility] [address] [place] [id number] Jun, History of acute respiratory failure Z87.09 ; Weight gain R63.5 and Tobacco abuse Z72.0 [place] [address] [place] [address] Jun, [place] [address] [place] [id number] [place] [address] May, Primary insomnia F51.01 [place] [address] [place] [id number] [place] [address] May, Mild episode of recurrent major depressive disorder F33.0 [place] [address] [place] [id number] [place] [address] May, [place] [address] [place] [id number] [place] [address] May, Chronic obstructive pulmonary disease, unspecified COPD type J44.9 ; Primary insomnia F51.01 ; Fatigue, unspecified type R53.83 and Weight gain R63.5 [place] [address] [place] [address] May, Thrush B37.0 [place] [address] [place] [id number] [place] [address] May, Mild episode of recurrent major depressive disorder F33.0 and Generalized anxiety disorder F41.1 [place] [address] [place] [address] May, Thrush B37.0 [place] [address] [place] [address] Apr, Cough R05 [place] [address] [place] [id number] [place] [address] Mar, Mild episode of recurrent major depressive disorder F33.0 [place] [address] [place] [address] Mar, Mild episode of recurrent major depressive disorder F33.0 and Generalized anxiety disorder F41.1 [facility] [address] [place] [id number] [place] [address] Mar, Seasonal allergies J30.2 [facility] [address] [place] [id number] [place] [address] Mar, Seasonal allergies J30.2 [facility] [address] [address] February, Generalized anxiety disorder F41.1 [facility] [address] [place] [id number] [place] [address] February, Cough R05 and Seasonal allergies J30.2 [facility] [address] [place] [id number] [place] [address] February, Generalized anxiety disorder F41.1 and Mild episode of recurrent major depressive disorder F33.0 [facility] [address] [place] [id number] [place] [address] February, 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 ; Anxiety F41.9 ; Panic attacks F41.0 and Irritable bowel syndrome with diarrhea K58.0 [facility] [address] [place] [id number] [place] [address] February, [facility] [address] [place] [id number] [place] [address] Jan, Mixed hyperlipidemia E78.2 [facility] [address] [place] [id number] [place] [address] Jan, [facility] [address] [place] [id number] [place] [address] Jan, [facility] [address] [place] [id number] [place] [address] Jan, [facility] [address] [place] [id number] [place] [address] Jan, [facility] [address] [place] [id number] [place] [address] Dec, [facility] [address] [address] Dec, [facility] [address] [place] [id number] [place] [address] Dec, [facility] [address] [place] [id number] [place] [address] Nov, Dysthymic disorder F34.1 [facility] [address] [place] [id number] [place] [address] Oct, [facility] [address] [address] Oct, [facility] [address] [address] Oct, [facility] [address] [address] Oct, Diarrhea, unspecified type R19.7 and Dysuria R30.0 [facility] [address] [place] [id number] [place] [address] Oct, [facility] [address] [place] [id number] [place] [address] Sep, [facility] [address] [place] [id number] [place] [address] Sep, [facility] [address] [place] [id number] [place] [address] Sep, Anxiety F41.9 [facility] [address] [address] Sep, Cerebrovascular accident (CVA), unspecified mechanism I63.9 ; Mixed hyperlipidemia E78.2 ; Gastroesophageal reflux disease with esophagitis K21.0 and Anxiety F41.9 [facility] [address] [place] [id number] [place] [address] Sep, [place] [address] [place] [id number] [place] [address] Aug, Chronic obstructive pulmonary disease, unspecified J44.9 ; Asthma J45.909 ; Nausea R11.0 ; Dysthymic disorder F34.1 ; Cerebrovascular accident (CVA), unspecified mechanism I63.9 and Rheumatoid arthritis M06.[address] [address] Aug, Nausea R11.0 ; Encounter for immunization Z23 ; Sleep apnea in adult G47.30 ; Rheumatoid arthritis involving multiple sites, unspecified rheumatoid factor presence M06.9 ; Generalized anxiety disorder F41.1 ; Dysthymic disorder F34.1 and Asthma J45.[address] [address] Jul, [address] [address] May, ADHD (attention deficit hyperactivity disorder), combined type F90.2 ; Generalized anxiety disorder F41.1 and Persistent depressive disorder F34.[address] [address] May, Cerebrovascular accident (CVA), unspecified mechanism I63.9 [place] [id number] [place] [address] Apr, Mixed hyperlipidemia E78.2 and Cerebrovascular accident (CVA), unspecified mechanism I63.9 [place] [address] [place] [id number] [place] [address] Apr, Generalized anxiety disorder F41.[address] [address] Apr, Bronchitis J40 and Tobacco use Z72.[address] [address] Apr, Mixed hyperlipidemia E78.2 [facility] [address] [place] [id number] [place] [address] Apr, Other jail (current) drug therapy Z79.899 [facility] [address] [place] [id number] [place] [address] Apr, [facility] [address] [place] [id number] [place] [address] Apr, Generalized anxiety disorder F41.1 [facility] [address] [place] [id number] [place] [address] Apr, Obstructive sleep apnea G47.33 and Hyperinsulinemia E16.1 [place] [address] [address] Apr, ADHD (attention deficit hyperactivity disorder), combined type F90.2 ; Generalized anxiety disorder F41.1 and Persistent depressive disorder F34.1 [place] [address] [place] [id number] [place] [address] Mar, [place] [address] [place] [id number] [place] [address] Mar, Generalized anxiety disorder F41.1 [place] [address] [place] [id number] [place] [address] Mar, Tarsal tunnel syndrome of both lower extremities G57.53 [place] [address] [place] [id number] [place] [address] February, [facility] [address] [place] [id number] [place] [address] February, [facility] [address] [place] [id number] [place] [address] February, Asthma J45.909 [facility] [address] [place] [id number] [place] [address] February, Generalized anxiety disorder F41.1 [facility] [address] [place] [id number] [place] [address] February, Hypoxemia R09.02 ; Hyperglycemia R73.9 ; Rheumatoid arthritis M06.9 and Generalized anxiety disorder F41.1 [place] [address] [address] February, [place] [address] [address] Jan, Chronic obstructive pulmonary disease, unspecified J44.9 [place] [address] [address] Jan, Chronic pain syndrome G89.4 [place] [address] [address] Jan, Hypoxemia R09.02 [place] [address] [address] Jan, [place] [address] [address] Jan, Chronic obstructive pulmonary disease, unspecified J44.9 ; Hypoxemia R09.02 ; Other insomnia G47.09 and Left anterior shoulder pain M25.512 [place] [address] [address] Jan, Numbness in feet R20.0 and Neuropathy G62.9 [place] [address] [address] Jan, [place] [address] [address] Dec, Acute pain of left shoulder M25.512 [place] [address] [address] Dec, Acute pain of left shoulder M25.512 [place] [address] [address] Dec, Generalized anxiety disorder F41.1 [place] [address] [address] Dec, Generalized anxiety disorder F41.1 [facility] [address] [place] [address] Nov, ADHD (attention deficit hyperactivity disorder), combined type F90.2 ; Generalized anxiety disorder F41.1 and Persistent depressive disorder F34.1 [facility] [address] [place] [id number] [place] [address] Nov, Acute pain of left shoulder M25.512 [facility] [address] [place] [id number] [place] [address] Nov, ADHD (attention deficit hyperactivity disorder), combined type F90.2 ; Generalized anxiety disorder F41.1 and Persistent depressive disorder F34.1 [facility] [address] [place] [id number] [place] [address] Nov, Chronic pain syndrome G89.4 [facility] [address] [place] [id number] [place] [address] Nov, Chronic pain syndrome G89.4 [facility] [address] [place] [id number] [place] [address] Nov, Acute pain of left shoulder M25.512 [facility] [address] [place] [id number] [place] [address] Nov, Generalized anxiety disorder F41.1 [facility] [address] [place] [id number] [place] [address] Nov, Acute pain of left shoulder M25.512 [facility] [address] [place] [address] Nov, ADHD (attention deficit hyperactivity disorder), combined type F90.2 ; Generalized anxiety disorder F41.1 and Persistent depressive disorder F34.1 [facility] [address] [address] Nov, Acute pain of left shoulder M25.512 ; Generalized anxiety disorder F41.1 ; Chronic pain syndrome G89.4 ; Hyperinsulinemia E16.1 ; Pain of left foot M79.672 and Pain in right foot M79.671 [place] [address] [place] [id number] [place] [address] Oct, ADHD (attention deficit hyperactivity disorder), combined type F90.2 ; Generalized anxiety disorder F41.1 and Dysthymic disorder F34.1 [place] [address] [place] [id number] [place] [address] Sep, [place] [address] [place] [id number] [place] [address] Sep, [place] [address] [place] [id number] [place] [address] Sep, Routine gynecological examination V72.31 ; Cervical cancer screening Z12.4 ; Breast cancer screening Z12.39 ; Colon cancer screening Z12.11 ; Hypokalemia E87.6 ; Herpes simplex type 1 infection B00.9 and Abscess of right axilla L02.411 [place] [address] [place] [id number] [place] [address] Sep, [place] [address] [place] [id number] [place] [address] Sep, ADHD (attention deficit hyperactivity disorder), combined type F90.2 ; Generalized anxiety disorder F41.1 and Dysthymic disorder F34.1 [place] [address] [place] [id number] [place] [address] Aug, [place] [address] [place] [id number] [place] [address] Aug, [place] [address] [place] [id number] [place] [address] Aug, Generalized anxiety disorder F41.1 [place] [address] [place] [address] Aug, ADHD (attention deficit hyperactivity disorder), combined type F90.2 ; Generalized anxiety disorder F41.1 and Dysthymic disorder F34.1 [place] [address] [place] [id number] [place] [address] Jul, Chronic pain syndrome G89.4 ; Hypertension I10 ; Hypokalemia E87.6 ; Asthma J45.909 and Nausea R11.0 [place] [address] [address] Jul, [place] [address] [address] Jul, Asthma J45.909 [place] [address] [address] Jul, ADHD (attention deficit hyperactivity disorder), combined type F90.2 ; Generalized anxiety disorder F41.1 and Dysthymic disorder F34.1 [place] [address] [address] Jul, [place] [address] [address] Jul, Hypertension I10 ; Arteriosclerotic coronary artery disease I25.10 ; Mixed hyperlipidemia E78.2 ; Other jail (current) drug therapy Z79.899 and Hyperglycemia R73.9 [place] [address] [place] [id number] [place] [address] 16 Jun, 2016 Hypokalemia E87.6 and Hyperglycemia R73.9 [place] [address] [place] [id number] [place] [address] 14 Jun, 2016 [place] [address] [address] 13 Jun, 2016 Abnormal kidney function N28.9 [place] [address] [place] [id number] [place] [address] 09 Jun, 2016 [place] [address] [address] Jun, ADHD (attention deficit hyperactivity disorder), combined type F90.2 ; Generalized anxiety disorder F41.1 and Dysthymic disorder F34.1 [place] [address] [address] Jun, Generalized anxiety disorder F41.1 and Dysthymic disorder F34.1 [place] [address] [address] Jun, Hypokalemia E87.6 [place] [address] [address] May, Hypokalemia E87.6 ; Vertigo R42 and Hyperinsulinemia E16.1 [place] [address] [address] May, [place] [address] [address] May, Abnormal kidney function N28.9 ; Hyperinsulinemia E16.1 and Nausea R11.0 [place] [address] [address] May, Hypokalemia E87.6 ; Nausea R11.0 ; Epigastric pain R10.13 ; Dehydration E86.0 ; Diaphoresis R61 and Right arm pain M79.601 [place] [address] [address] May, [place] [address] [address] May, Hypokalemia E87.6 [place] [address] [address] May, Hypokalemia E87.6 [place] [address] [address] Apr, [place] [address] [address] Apr, ADHD (attention deficit hyperactivity disorder), combined type F90.2 ; Generalized anxiety disorder F41.1 and Dysthymic disorder F34.1 [place] [address] [place] [id number] [place] [address] Apr, Right arm pain M79.601 and Hyperinsulinemia E16.1 [place] [address] [place] [id number] [place] [address] Mar, [place] [address] [place] [id number] [place] [id number] Mar, [place] [address] [place] [id number] [place] [phone] Mar, Hyperinsulinemia E16.1 ; Hyperlipidemia, unspecified hyperlipidemia type E78.5 ; Central venous catheter in place Z78.9 ; Generalized anxiety disorder F41.1 and Urinary tract infection, site not specified N39.0 [place] [id number] [place] [phone] Mar, ADHD (attention deficit hyperactivity disorder), combined type F90.2 ; Generalized anxiety disorder F41.1 and Dysthymic disorder F34.1 [place] [id number] [place] [phone] February, ADHD (attention deficit hyperactivity disorder), combined type F90.2 ; Generalized anxiety disorder F41.1 and Dysthymic disorder F34.1 [place] [id number] [place] [phone] February, [place] [address] [place] [id number] [place] [phone] February, [place] [address] [place] [id number] [place] [phone] February, Hypertension I10 and Weight gain R63.5 [place] [address] [place] [id number] [place] [phone] February, Major depressive disorder, recurrent, moderate F33.1 and Generalized anxiety disorder F41.1 [facility] [id number] [address] February, ADHD (attention deficit hyperactivity disorder), combined type F90.2 ; Generalized anxiety disorder F41.1 and Dysthymic disorder F34.1 [facility] [id number] [place] [address] February, [facility] [id number] [place] [address] February, Asthma J45.909 ; Weight gain R63.5 ; Hypertension I10 ; Rheumatoid arthritis M06.9 and Chronic pain syndrome G89.4 [facility] [id number] [place] [address] Jan, ADHD (attention deficit hyperactivity disorder), combined type F90.2 ; Generalized anxiety disorder F41.1 and Dysthymic disorder F34.1 [facility] [id number] [place] [address] Dec, ADHD (attention deficit hyperactivity disorder), combined type F90.2 ; Generalized anxiety disorder F41.1 and Dysthymic disorder F34.1 [facility] [id number] [place] [address] Dec, [facility] [address] [address] Nov, [facility] [id number] [place] [address] Nov, [facility] [id number] [place] [address] Nov, [facility] [id number] [place] [address] Nov, [facility] [id number] [place] [address] Oct, [facility] [address] [place] [address] Oct, [facility] [address] [address] Oct, [facility] [address] [address] Sep, [facility] [id number] [place] [address] Sep, [facility] [id number] [place] [address] Sep, Agoraphobia with panic disorder F40.01 ; Attention-deficit hyperactivity disorder, combined type F90.2 and Dysthymic disorder F34.1 [facility] [id number] [place] [address] Aug, [facility] [id number] [place] [address] Aug, [facility] [address] [address] Aug, [facility] [id number] [place] [address] Aug, Dysthymic disorder F34.1 ; Generalized anxiety disorder F41.1 and ADHD (attention deficit hyperactivity disorder), combined type F90.2 [facility] [address] [address] Aug, ADHD (attention deficit hyperactivity disorder), combined type F90.2 ; Generalized anxiety disorder F41.1 and Dysthymic disorder F34.1 [facility] [id number] [place] [address] Jul, Urinary tract infection, site not specified N39.0 ; Hypotension, unspecified I95.9 and Breast cancer screening Z12.39 [facility] [address] [address] Jul, [facility] [id number] [address] Jul, [facility] [id number] [place] [address] Jul, Urinary tract infection, site not specified N39.0 ; Nausea R11.0 ; Gastroenteritis K52.9 ; Renal failure N19 and Other hypotension I95.89 [facility] [address] [address] Jul, [facility] [id number] [place] [address] Jul, [facility] [id number] [place] [address] Jul, [facility] [id number] [place] [address] Jun, [facility] [id number] [place] [address] Jun, Major depression in partial remission 296.25 ; Generalized anxiety disorder 300.02 and ADHD, predominantly inattentive type 314.[id number] [place] [address] May, [facility] [id number] [place] [address] Apr, Major depressive disorder, recurrent episode, severe, without mention of psychotic behavior 296.33 ; Agoraphobia with panic disorder 300.21 and Generalized anxiety disorder 300.02 [facility] [id number] [place] [address] Apr, ADHD (attention deficit hyperactivity disorder), combined type 314.01 ; Generalized anxiety disorder 300.02 and Dysthymic disorder 300.4 [facility] [id number] [place] [address] Apr, CAD (coronary artery disease) 414.00 ; HTN (hypertension) 401.9 and Tobacco use 305.1 [id number] [address] Apr, [facility] [id number] [place] [address] Mar, ADHD (attention deficit hyperactivity disorder), combined type 314.01 ; Generalized anxiety disorder 300.02 ; Dysthymic disorder 300.4 ; No condition on Nekoma II V71.09 ; Rheumatoid arthritis 714.0 ; Incontinence 788.30 ; Irritable bowel syndrome 564.1 ; Osteoporosis 733.00 and Chronic pain 338.29 [facility] [id number] [place] [address] Mar, Agoraphobia with panic disorder 300.21 and Major depressive disorder, recurrent episode, moderate 296.32 [facility] [id number] [place] [address] Mar, [facility] [id number] [place] [address] February, [facility] [id number] [place] [address] February, Agoraphobia with panic disorder 300.21 and Major depressive disorder, recurrent episode, moderate 296.32 [facility] [address] [address] February, [facility] [address] [address] Jan, [facility] [id number] [address] Jan, [facility] [id number] [place] [address] Dec, [facility] [id number] [place] [address] Dec, [facility] [address] [address] Dec, [facility] [id number] [place] [address] Dec, [facility] [place] [facility] [address] [id number] [place] [address] Dec, [facility] [place] [facility] [address] [id number] [place] [address] Dec, [facility] [place] [facility] [address] [id number] [place] [address] Nov, 2014 [facility] [place] [facility] [address] [id number] [place] [address] Nov, [facility] [place] [facility] [address] [id number] [place] [address] Nov, [facility] [place] [facility] [address] [id number] [place] [address] Nov, [facility] [place] [facility] [address] [id number] [place] [address] Nov, [facility] [place] [facility] [address] [id number] [place] [address] Nov, [facility] [place] [facility] [address] [facility] [id number] [place] [address] Nov, [facility] [place] [facility] [address] [id number] [place] [address] Nov, [facility] [place] [facility] [address] [id number] [address] Oct, [facility] [place] [facility] [address] [id number] [place] [address] Oct, [facility] [place] [facility] [address] [id number] [place] [address] Oct, [facility] [place] [facility] [address] [id number] [place] [address] Oct, [facility] [place] [facility] [address] [id number] [address] Oct, [facility] [place] [facility] [address] [id number] [place] [address] Oct, [facility] [place] [facility] [address] [id number] [place] [address] Sep, [facility] [place] [facility] [address] [id number] [place] [address] Sep, [facility] [place] [facility] [address] [id number] [place] [address] Sep, [facility] [place] [facility] [address] [id number] [place] [address] Sep, [facility] [place] [facility] [address] [id number] [place] [address] Sep, [facility] [place] [facility] [address] [id number] [place] [address] Sep, [facility] [place] [facility] [address] [id number] [place] [address] Sep, [facility] [place] [facility] [address] [id number] [place] [address] Aug, [facility] [place] [facility] [address] [id number] [place] [address] Aug, [facility] [place] [facility] [address] [id number] [address] Aug, [facility] [place] [facility] [address] [id number] [address] Aug, [facility] [place] [facility] [address] [id number] [place] [address] Aug, [facility] [place] [facility] [address] [id number] [place] [address] Aug, [facility] [place] [facility] [address] [id number] [place] [address] Jul, [facility] [place] [facility] [address] [id number] [place] [address] Jul, [facility] [place] [facility] [address] [id number] [place] [address] Jul, [facility] [place] [facility] [address] [id number] [place] [address] Jul, [facility] [place] [facility] [address] [id number] [place] [address] Jul, [facility] [place] [facility] [address] [id number] [place] [address] Jul, [facility] [place] [facility] [address] [id number] [place] [address] Jun, [facility] [place] [facility] [address] [id number] [place] [address] Jun, [facility] [place] [facility] [address] [id number] [place] [address] May, [facility] [place] [facility] [address] [id number] [place] [address] May, [facility] [place] [facility] [address] [id number] [place] [address] Apr, [facility] [place] [facility] [address] [id number] [place] [address] Apr, [facility] [place] [facility] [address] [id number] [place] [address] Apr, [facility] [place] [facility] [address] [id number] [place] [address] Apr, [facility] [place] [facility] [address] [id number] [place] [address] Mar, [facility] [place] [facility] [address] [id number] [place] [address] Mar, [facility] [place] [facility] [address] [id number] [place] [address] Mar, [facility] [place] [facility] [address] [id number] [place] [address] Mar, [facility] [place] [facility] [address] [id number] [place] [address] February, [facility] [place] [facility] [address] [id number] [place] [address] February, [facility] [place] [facility] [address] [id number] [place] [address] February, [facility] [place] [facility] [address] [id number] [place] [address] February, [facility] [place] [facility] [address] [id number] [place] [address] February, [facility] [place] [facility] [address] [id number] [place] [address] February, [facility] [place] [facility] [address] [id number] [place] [address] Jan, [facility] [place] [facility] [address] [id number] [place] [address] Jan, [facility] [place] [facility] [address] [id number] [place] [address] Dec, [facility] [place] [facility] [address] [id number] [place] [address] Dec, [facility] [place] [facility] [address] [id number] [place] [address] Nov, [facility] [place] [facility] [address] [id number] [place] [address] Nov, [facility] [place] [facility] [address] [id number] [place] [address] Oct, [facility] [place] [facility] [address] [id number] [place] [address] Oct, [facility] [place] [facility] [address] [id number] [place] [address] Oct, [facility] [address] [id number] [place] [address] Oct, [facility] [address] [id number] [place] [address] Sep, [facility] [address] [id number] [place] [address] Sep, [facility] [place] [facility] [address] [id number] [place] [address] Sep, [facility] [address] [id number] [place] [address] Sep, [facility] [address] [id number] [place] [address] Sep, [facility] [address] [id number] [place] [address] Sep, [facility] [address] [id number] [place] [address] Sep, [facility] [address] [id number] [place] [address] Sep, [facility] [address] [id number] [place] [address] Aug, [facility] [address] [id number] [place] [address] Aug, [facility] [place] [facility] [address] [id number] [place] [address] 08 Aug, 2013 [facility] [place] [facility] [address] [id number] [place] [address] 07 Aug, 2013 [facility] [place] [facility] [address] [id number] [place] [address] Aug, [facility] [place] [facility] [address] [id number] [address] 05 Aug, 2013 [facility] [place] [facility] [address] [id number] [place] [address] Aug, [facility] [place] [facility] [address] [id number] [place] [address] Aug, [facility] [place] [facility] [address] [id number] [place] [address] Aug, [facility] [place] [facility] [address] [id number] [place] [address] Jul, [facility] [place] [facility] [address] [id number] [place] [address] Jun, [facility] [place] [facility] [address] [id number] [place] [address] May, [facility] [place] [facility] [address] [id number] [place] [address] May, [facility] [place] [facility] [address] [id number] [place] [address] May, [facility] [place] [facility] [address] [id number] [place] [address] Apr, [facility] [place] [facility] [address] [id number] [place] [address] Mar, [facility] [place] [facility] [address] [id number] [place] [address] February, [facility] [place] [facility] [address] [id number] [place] [address] Oct, [facility] [place] [facility] [address] [id number] [place] [address] 16 Oct, 2012 [facility] [place] [facility] [address] [id number] [place] [address] Oct, [facility] [place] [facility] [address] [id number] [place] [address] Oct, [facility] [place] [facility] [address] [id number] [address] Oct, [facility] [place] [facility] [address] [id number] [place] [address] Oct, [facility] [place] [facility] [address] [id number] [place] [address] Sep, [facility] [place] [facility] [address] [id number] [place] [address] Sep, [facility] [place] [facility] [address] [id number] [place] [address] Aug, [facility] [place] [facility] [address] [id number] [place] [address] Aug, [facility] [place] [facility] [address] [id number] [place] [address] Jul, [facility] [place] [facility] [address] [id number] [place] [address] Jul, [facility] [place] [facility] [address] [id number] [place] [address] Jul, [facility] [place] [facility] [address] [id number] [place] [address] Jul, [facility] [place] [facility] [address] [id number] [place] [address] Jul, [facility] [place] [facility] [address] [id number] [address] Jul, [facility] [place] [facility] [address] [id number] [address] Jul, [facility] [place] [facility] [address] [id number] [place] [address] Jul, [facility] [place] [facility] [address] [facility] [id number] [address] 16 Jun, 2012 [facility] [place] [facility] [address] [id number] [place] [address] 03 Jun, 2012 [facility] [place] [facility] [address] [id number] [place] [address] May, [facility] [address] [id number] [place] [address] Apr, [facility] [place] [facility] [address] [id number] [place] [address] Mar, [facility] [address] [id number] [place] [address] Mar, [facility] [place] [facility] [address] [id number] [place] [address] Mar, [facility] [address] [id number] [place] [address] Mar, [facility] [place] [facility] [address] [id number] [place] [address] Jan, [facility] [address] [id number] [place] [address] Nov, [facility] [address] [id number] [place] [address] Nov, [facility] [place] [facility] [address] [id number] [place] [address] Nov, [facility] [address] [id number] [place] [address] Oct, [facility] [address] [id number] [place] [address] Sep, [facility] [place] [facility] [address] [id number] [place] [address] Sep, [facility] [place] [facility] [address] [id number] [place] [address] Aug, [facility] [place] [facility] [address] [id number] [place] [address] Aug, [facility] [place] [facility] [address] [id number] [place] [address] Aug, [facility] [id number] [address] Aug, [facility] [address] [address] Jul, [facility] [address] [address] May, [facility] [id number] [address] Jan, [facility] [address] [address] Nov, [facility] [id number] [place] [address] Apr, [facility] [address] [address] Dec, [facility] [address] [address] Nov, IMMUNIZATIONS No Known Immunizations SOCIAL HISTORY Never Assessed REASON FOR VISIT EMR-[facility] [place] PLAN OF CARE VITAL SIGNS MEDICATIONS Medication Instructions Dosage Frequency Start Date End Date Duration Status Clindamycin Phosphate 1 % apply by Topical route 2 times per day for 2 week Oct, Active Fosamax 70 mg take 1 tablet (70 mg) by oral route once weekly in the morning, at least 30 min before first food, beverage, or medication of day May, Active ProAir HFA 90 mcg/actuation 2 puffs by Inhalation route 4 times per day for 30 day(s) PRN shortness of breath Dec, Active Xeljanz 5 mg 1 Tablet by Oral route 2 times per day Dec, Active Lidoderm 5 %(700 mg/patch) to knees May, Active Effexor XR 75 mg take 2 capsules by Oral route with food 1 time per day for 7 day then 1 cap po qd X 1 week, then DC Aug, Active VESIcare 5 mg 1 tablet by Oral route 1 time per day Nov, Active Symbicort 80-4.5 mcg/actuation 2 puffs by Inhalation route 2 times per day for 30 day(s) Oct, Active Levaquin 750 mg 1 tablet by Oral route every 24 hours for 7 days Dec, Active Paxil 40 mg 1 tablet by Oral route 1 time per day Oct, Active Mobic 7.5 mg take 1 tablet by Oral route 2 times per day Nov, Active Abilify 2 mg 1 tablet by Oral route 1 time per day Dec, Active tramadol 50 mg take 1 tablet (50 mg) by oral route every 4 hours as needed Nov, Active Cefdinir 300 mg take 2 capsules (600 mg) by oral route once daily for 10 days Oct, Active Lopressor by Oral [id number] bid Mar, Active Xanax 1 mg take 1 tablet by Oral route 3 times per day for anxiety and panic (Most last 30 days) Dec, Active PredniSONE 2.5 mg take 1 tablet (2.5 mg) by oral route once daily Nov, Active Albuterol Sulfate 2.5 mg /3 mL (0.083 %) 1 Each by Inhalation route every 4 hours for cough and wheeze PRN for wheezing or cough Jul, Active RESULTS No Results PROCEDURES No Known procedures INSTRUCTIONS MEDICATIONS ADMINISTERED No Known Medications MEDICAL (GENERAL) HISTORY Type Description Date Medical History Cardiovascular [id number], non-obstructive per (01/2011) Dr. Mendoza Medical History Stress test 03/07/13-Dr. Kelly Dietrich normal Medical History Hypertension Medical History Asthma Medical History Gastrointestinal Disorder--IBS, GERD, Hx of fatty liver Medical History Hernia 1979 Medical History Cervical dysplasia 02/16-Pap LGSIL/[place]-mild dysplasia Medical History Hyperlipidemia Medical History Rheumatoid [...] injury 07/10/15-07/11/2015 Hospitalization History Symptomatic Hypokalemia/Nause-[facility] 05/13/16 Hospitalization History Stroke 05/03/2017 Hospitalization History stroke 08/24/2017--09/01/2017
--- OUTSIDE RECORDS SUMMARY | 2019-05-22 07:32 | XMS REPORT ---
Author Author Migration, Doctor Organization [facility] Address Unknown Phone Unavailable Care Team Providers Care Recreational Therapist Name Role Phone Migration, Doctor Unavailable Unavailable PROBLEMS Type Condition ICD9-CM Code IMF56-UM Code Onset Dates Condition Status SNOMED Code Problem Hemiparesis of left nondominant side as late effect of cerebral infarction I69.354 Active 957083982 Problem Generalized anxiety disorder F41.1 Active 51313429 Problem Morbid (severe) obesity due to excess calories E66.01 Active 633887099 Problem Chronic pain syndrome G89.4 Active 343931024 Problem ADHD (attention deficit hyperactivity disorder), combined type F90.2 Active 10496909 Problem Asthma J45.909 Active 411713644 Problem Rheumatoid arthritis M06.9 Active 72244822 Problem Anxiety F41.9 Active 16602334 Problem Gastroesophageal reflux disease with esophagitis K21.0 Active 449816603 Problem Neuropathy G62.9 Active 556368138 Problem Hyperinsulinemia E16.1 Active 74029728 Problem Obstructive sleep apnea G47.33 Active 94689587 Problem Other insomnia G47.09 Active 528228781 Problem Cerebrovascular accident (CVA), unspecified mechanism I63.9 Active 817860400 Problem 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 manager (current) drug therapy Z79.899 Active 535803612 Problem Sleep apnea in adult G47.30 Active 18984006 Problem Dysthymic disorder F34.1 Active 17939804 Problem Irritable bowel syndrome with diarrhea K58.0 Active 901445878 Problem Panic attacks F41.0 Active 471020122 Problem Mild episode of recurrent major depressive disorder F33.0 Active 559685741 Problem Chronic obstructive pulmonary disease J44.9 Active 18878320 Problem Arteriosclerotic coronary artery disease I25.10 Active 31437044 Problem Hemiplegia affecting left nondominant side G81.94 Active Problem Hypertension I10 Active 44712958 Problem Mixed hyperlipidemia E78.2 Active 237738848 Problem Seasonal allergies J30.2 Active 960704878 Problem Primary insomnia F51.01 Active 5463970 Problem Paroxysmal atrial fibrillation I48.0 Active 516596987 Problem Unsteady gait R26.81 Active 19275621 ALLERGIES No Information ENCOUNTERS Encounter Location Date Diagnosis [facility] [id number] [place] [address] February, [facility] [id number] [place] [address] Jan, [facility] [id number] [place] [id number] Jan, Herpes zoster without complication B02.9 [facility] [id number] [place] [address] Jan, Other insomnia G47.09 ; Hypertension I10 ; Rheumatoid arthritis M06.9 ; Mild episode of recurrent major depressive disorder F33.0 ; Breast cancer screening Z12.39 ; Arteriosclerotic coronary artery disease I25.10 ; Morbid (severe) obesity due to excess calories E66.01 and Hemiparesis of left nondominant side as late effect of cerebral infarction I69.354 [facility] [place] [id number] [place] [address] Jan, Asthma J45.909 and Other insomnia G47.09 [facility] [id number] [place] [address] Jan, [facility] [id number] [place] [address] Dec, Generalized anxiety disorder F41.1 and Mild episode of recurrent major depressive disorder F33.0 [facility] [id number] [place] [address] Dec, [facility] [id number] [place] [address] Dec, [facility] [id number] [place] [address] Dec, [facility] [id number] [place] [id number] Nov, Viral upper respiratory tract infection J06.9 [facility] [address] [address] Nov, [facility] [id number] [address] Oct, [facility] [address], [place] [address] Sep, [facility] [id number] [place] [address] Sep, [facility] [id number] [place] [address] Sep, [facility] [id number] [place] [address] Sep, Orthostatic hypotension I95.1 ; Shortness of breath R06.02 ; Right foot pain M79.671 and Morbid (severe) obesity due to excess calories E66.01 [facility] [address], [place] [address] Aug, [facility] [address], [place] [address] Aug, [facility] [id number] [address] Aug, [facility] [address], [place] [address] Aug, [facility] [address], [place] [address] Aug, [facility] [address], [place] [address] Jul, [facility] [address], [place] [address] Jul, [facility] [address], [place] [address] Jul, [facility] [address], [place] [address] Jul, [facility] [id number] [place] [address] Jul, [facility] [place] [id number] [place] [address] Jul, [facility] [address] [place] [id number] Jul, Hemiplegia affecting left nondominant side G81.94 ; Chronic obstructive pulmonary disease J44.9 and Weakness R53.1 [facility] [place] [id number] [place] [address] Jul, [facility] [address] [place] [id number] Jul, Weakness R53.1 ; Paroxysmal atrial fibrillation I48.0 and Unsteady gait R26.81 [facility] [id number] [place] [address] Jul, Tobacco abuse Z72.0 [facility] [address] [place] [id number] Jun, History of acute respiratory failure Z87.09 ; Weight gain R63.5 and Tobacco abuse Z72.0 [facility] [address], [place] [address] Jun, [facility] [place] [id number] [place] [address] May, Primary insomnia F51.01 [facility] [address], [place] [address] May, Mild episode of recurrent major depressive disorder F33.0 [facility] [place] [id number] [place] [address] May, [facility] [place] [address], [place] [address] May, Chronic obstructive pulmonary disease, unspecified COPD type J44.9 ; Primary insomnia F51.01 ; Fatigue, unspecified type R53.83 and Weight gain R63.5 [facility] [place] [id number] [place] [address] May, Thrush B37.0 [facility] [id number] [place] [address] May, Mild episode of recurrent major depressive disorder F33.0 and Generalized anxiety disorder F41.1 [facility] [id number] [place] [address] May, Thrush B37.0 [place] [address] [address] Apr, Cough R05 [place] [address] [address] Mar, Mild episode of recurrent major depressive disorder F33.0 [place] [place] [id number] [place] [address] Mar, Mild episode of recurrent major depressive disorder F33.0 and Generalized anxiety disorder F41.1 [place] [id number] [place] [address] Mar, Seasonal allergies J30.2 [facility] [place] [id number] [place] [address] Mar, Seasonal allergies J30.2 [facility] [place] [id number] [place] [address] February, Generalized anxiety disorder F41.1 [facility] [id number] [place] [address] February, Cough R05 and Seasonal allergies J30.2 [facility] [id number] [place] [address] February, Generalized anxiety disorder F41.1 and Mild episode of recurrent major depressive disorder F33.0 [facility] [place] [id number] [place] [address] February, 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 manager (current) drug therapy Z79.899 ; Anxiety F41.9 ; Panic attacks F41.0 and Irritable bowel syndrome with diarrhea K58.0 [facility] [id number], [place] [address] February, [facility] [id number] [place] [address] Jan, Mixed hyperlipidemia E78.2 [facility] [id number] [place] [address] Jan, [facility] [id number] [place] [address] Jan, [facility] [id number] [place] [address] Jan, [facility] [id number] [place] [address] Jan, [facility] [id number] [place] [address] Dec, [facility] [id number] [place] [address] Dec, [facility] [address], [place] [address] Dec, [facility] [id number] [place] [address] Nov, Dysthymic disorder F34.1 [facility] [id number] [place] [address] Oct, [facility] [id number] [place] [address] Oct, [facility] [address], [place] [address] Oct, [facility] [id number] [place] [address] Oct, Diarrhea, unspecified type R19.7 and Dysuria R30.0 [place] [address] [address] Oct, [place] [address] [address] Sep, [facility] [place] [address] [address] Sep, [facility] [place] [address] [address] Sep, Anxiety F41.[address] [address] Sep, Cerebrovascular accident (CVA), unspecified mechanism I63.9 ; Mixed hyperlipidemia E78.2 ; Gastroesophageal reflux disease with esophagitis K21.0 and Anxiety F41.9 [place] [place] [address] [address] Sep, [facility] [place] [id number] [place] [address] Aug, Chronic obstructive pulmonary disease, unspecified J44.9 ; Asthma J45.909 ; Nausea R11.0 ; Dysthymic disorder F34.1 ; Cerebrovascular accident (CVA), unspecified mechanism I63.9 and Rheumatoid arthritis M06.9 [place] [id number] [place] [address] Aug, Nausea R11.0 ; Encounter for immunization Z23 ; Sleep apnea in adult G47.30 ; Rheumatoid arthritis involving multiple sites, unspecified rheumatoid factor presence M06.9 ; Generalized anxiety disorder F41.1 ; Dysthymic disorder F34.1 and Asthma J45.909 [place] [place] [id number] [place] [address] Jul, [facility] [address] [address] May, ADHD (attention deficit hyperactivity disorder), combined type F90.2 ; Generalized anxiety disorder F41.1 and Persistent depressive disorder F34.1 [place] [address] [address] May, Cerebrovascular accident (CVA), unspecified mechanism I63.9 [place] [address] [address] Apr, Mixed hyperlipidemia E78.2 and Cerebrovascular accident (CVA), unspecified mechanism I63.9 [place] [address] [address] Apr, Generalized anxiety disorder F41.1 [place] [address] [address] Apr, Bronchitis J40 and Tobacco use Z72.0 [place] [address] [address] Apr, Mixed hyperlipidemia E78.2 [place] [address] [address] Apr, Other mcfp (current) drug therapy Z79.899 [place] [address] [address] Apr, [place] [place] [address] [address] Apr, Generalized anxiety disorder F41.1 [place] [address] [address] Apr, Obstructive sleep apnea G47.33 and Hyperinsulinemia E16.1 [place] [address] [address] Apr, ADHD (attention deficit hyperactivity disorder), combined type F90.2 ; Generalized anxiety disorder F41.1 and Persistent depressive disorder F34.1 [place] [address] [address] Mar, [facility] [id number] [place] [address] Mar, Generalized anxiety disorder F41.1 [facility] [id number] [place] [address] Mar, Tarsal tunnel syndrome of both lower extremities G57.53 [facility] [id number] [place] [address] February, [facility] [id number] [place] [address] February, [facility] [id number] [place] [address] February, Asthma J45.909 [facility] [id number] [place] [address] February, Generalized anxiety disorder F41.1 [facility] [id number] [place] [address] February, Hypoxemia R09.02 ; Hyperglycemia R73.9 ; Rheumatoid arthritis M06.9 and Generalized anxiety disorder F41.1 [facility] [id number] [place] [address] February, [facility] [id number] [place] [address] Jan, Chronic obstructive pulmonary disease, unspecified J44.9 [facility] [id number] [place] [address] Jan, Chronic pain syndrome G89.4 [facility] [id number] [place] [address] Jan, Hypoxemia R09.02 [facility] [id number] [place] [address] Jan, [facility] [id number] [place] [address] Jan, Chronic obstructive pulmonary disease, unspecified J44.9 ; Hypoxemia R09.02 ; Other insomnia G47.09 and Left anterior shoulder pain M25.512 [facility] [id number] [place] [address] Jan, Numbness in feet R20.0 and Neuropathy G62.9 [place] [address] [address] Jan, [place] [address] [address] Dec, Acute pain of left shoulder M25.512 [place] [address] [address] Dec, Acute pain of left shoulder M25.512 [facility] [place] [id number] [place] [address] Dec, Generalized anxiety disorder F41.1 [place] [place] [id number] [place] [address] Dec, Generalized anxiety disorder F41.1 [place] [address] [address] Nov, ADHD (attention deficit hyperactivity disorder), combined type F90.2 ; Generalized anxiety disorder F41.1 and Persistent depressive disorder F34.1 [place] [id number] [place] [address] Nov, Acute pain of left shoulder M25.512 [place] [place] [id number] [place] [address] Nov, ADHD (attention deficit hyperactivity disorder), combined type F90.2 ; Generalized anxiety disorder F41.1 and Persistent depressive disorder F34.1 [place] [id number] [place] [address] Nov, Chronic pain syndrome G89.4 [place] [address] [place] [address] Nov, Chronic pain syndrome G89.4 [facility] [place] [id number] [place] [address] Nov, Acute pain of left shoulder M25.512 [place] [place] [id number] [place] [address] Nov, Generalized anxiety disorder F41.1 [facility] [place] [id number] [place] [address] Nov, Acute pain of left shoulder M25.512 [place] [address] [address] Nov, ADHD (attention deficit hyperactivity disorder), combined type F90.2 ; Generalized anxiety disorder F41.1 and Persistent depressive disorder F34.1 [place] [place] [id number] [place] [address] Nov, Acute pain of left shoulder M25.512 ; Generalized anxiety disorder F41.1 ; Chronic pain syndrome G89.4 ; Hyperinsulinemia E16.1 ; Pain of left foot M79.672 and Pain in right foot M79.671 [place] [place] [id number] [place] [address] Oct, ADHD (attention deficit hyperactivity disorder), combined type F90.2 ; Generalized anxiety disorder F41.1 and Dysthymic disorder F34.1 [place] [id number] [place] [address] Sep, [facility] [id number] [place] [address] Sep, [facility] [id number] [place] [address] Sep, Routine gynecological examination V72.31 ; Cervical cancer screening Z12.4 ; Breast cancer screening Z12.39 ; Colon cancer screening Z12.11 ; Hypokalemia E87.6 ; Herpes simplex type 1 infection B00.9 and Abscess of right axilla L02.411 [place] [place] [id number] [place] [address] Sep, [place] [address] [address] Sep, ADHD (attention deficit hyperactivity disorder), combined type F90.2 ; Generalized anxiety disorder F41.1 and Dysthymic disorder F34.1 [place] [address] [address] Aug, [place] [address] [address] Aug, [place] [address] [address] Aug, Generalized anxiety disorder F41.1 [place] [address] [address] Aug, ADHD (attention deficit hyperactivity disorder), combined type F90.2 ; Generalized anxiety disorder F41.1 and Dysthymic disorder F34.1 [place] [address] [address] Jul, Chronic pain syndrome G89.4 ; Hypertension I10 ; Hypokalemia E87.6 ; Asthma J45.909 and Nausea R11.0 [facility] [place] [id number] [place] [address] Jul, [facility] [id number] [place] [address] Jul, Asthma J45.909 [place] [address] [address] Jul, ADHD (attention deficit hyperactivity disorder), combined type F90.2 ; Generalized anxiety disorder F41.1 and Dysthymic disorder F34.1 [place] [address] [address] Jul, [place] [address] [address] Jul, Hypertension I10 ; Arteriosclerotic coronary artery disease I25.10 ; Mixed hyperlipidemia E78.2 ; Other mcfp (current) drug therapy Z79.899 and Hyperglycemia R73.9 [place] [address] [address] Jun, Hypokalemia E87.6 and Hyperglycemia R73.9 [place] [address] [address] 14 Jun, 2016 [place] [address] [address] Jun, Abnormal kidney function N28.9 [place] [address] [address] Jun, [place] [address] [address] Jun, ADHD (attention deficit hyperactivity disorder), combined type F90.2 ; Generalized anxiety disorder F41.1 and Dysthymic disorder F34.1 [place] [address] [address] Jun, Generalized anxiety disorder F41.1 and Dysthymic disorder F34.1 [place] [address] [address] Jun, Hypokalemia E87.6 [place] [address] [address] May, Hypokalemia E87.6 ; Vertigo R42 and Hyperinsulinemia E16.1 [place] [address] [address] May, [place] [address] [address] May, Abnormal kidney function N28.9 ; Hyperinsulinemia E16.1 and Nausea R11.0 [facility] [place] [id number] [place] [address] May, Hypokalemia E87.6 ; Nausea R11.0 ; Epigastric pain R10.13 ; Dehydration E86.0 ; Diaphoresis R61 and Right arm pain M79.601 [place] [address] [address] May, [place] [address] [address] May, Hypokalemia E87.6 [place] [address] [address] May, Hypokalemia E87.6 [place] [address] [address] Apr, [place] [address] [address] Apr, ADHD (attention deficit hyperactivity disorder), combined type F90.2 ; Generalized anxiety disorder F41.1 and Dysthymic disorder F34.1 [place] [address] [address] Apr, Right arm pain M79.601 and Hyperinsulinemia E16.1 [facility] [place] [id number] [place] [address] Mar, [place] [address] [address] Mar, [place] [address] [address] Mar, Hyperinsulinemia E16.1 ; Hyperlipidemia, unspecified hyperlipidemia type E78.5 ; Central venous catheter in place Z78.9 ; Generalized anxiety disorder F41.1 and Urinary tract infection, site not specified N39.0 [place] [address] [address] Mar, ADHD (attention deficit hyperactivity disorder), combined type F90.2 ; Generalized anxiety disorder F41.1 and Dysthymic disorder F34.1 [place] [address] [id number] [place] [phone] February, ADHD (attention deficit hyperactivity disorder), combined type F90.2 ; Generalized anxiety disorder F41.1 and Dysthymic disorder F34.1 [place] [address] [address] [place] [id number] [place] [phone] February, [place] [address] [address] [place] [id number] [place] [phone] February, [place] [address] [address] [place] [id number] [place] [phone] February, Hypertension I10 and Weight gain R63.5 [place] [address] [address] [place] [id number] [place] [phone] February, Major depressive disorder, recurrent, moderate F33.1 and Generalized anxiety disorder F41.1 [place] [address] [address] [place] [id number] [place] [phone] February, ADHD (attention deficit hyperactivity disorder), combined type F90.2 ; Generalized anxiety disorder F41.1 and Dysthymic disorder F34.1 [place] [address] [address] [place] [id number] [place] [phone] February, [place] [address] [address] [place] [id number] [place] [phone] February, Asthma J45.909 ; Weight gain R63.5 ; Hypertension I10 ; Rheumatoid arthritis M06.9 and Chronic pain syndrome G89.4 [place] [address] [address] [place] [id number] [place] [phone] Jan, ADHD (attention deficit hyperactivity disorder), combined type F90.2 ; Generalized anxiety disorder F41.1 and Dysthymic disorder F34.1 [place] [address] [address] [place] [id number] [address] Dec, ADHD (attention deficit hyperactivity disorder), combined type F90.2 ; Generalized anxiety disorder F41.1 and Dysthymic disorder F34.1 [facility] [id number] [address] Dec, [facility] [id number] [place] [address] Nov, [facility] [id number] [place] [address] Nov, [facility] [id number] [place] [address] Nov, [facility] [id number] [place] [address] Nov, [facility] [id number] [place] [address] Oct, [facility] [id number] [place] [address] Oct, [facility] [id number] [place] [address] Oct, [facility] [address], [place] [address] Sep, [facility] [id number] [place] [address] Sep, [facility] [id number] [place] [address] Sep, Agoraphobia with panic disorder F40.01 ; Attention-deficit hyperactivity disorder, combined type F90.2 and Dysthymic disorder F34.1 [facility] [address], [place] [address] Aug, [facility] [id number] [place] [address] Aug, [facility] [id number] [place] [address] Aug, [facility] [id number] [place] [address] Aug, Dysthymic disorder F34.1 ; Generalized anxiety disorder F41.1 and ADHD (attention deficit hyperactivity disorder), combined type F90.2 [facility] [id number] [place] [address] Aug, ADHD (attention deficit hyperactivity disorder), combined type F90.2 ; Generalized anxiety disorder F41.1 and Dysthymic disorder F34.1 [facility] [id number] [place] [address] Jul, Urinary tract infection, site not specified N39.0 ; Hypotension, unspecified I95.9 and Breast cancer screening Z12.39 [facility] [id number] [place] [address] Jul, [facility] [id number] [place] [address] Jul, [facility] [id number] [place] [address] Jul, Urinary tract infection, site not specified N39.0 ; Nausea R11.0 ; Gastroenteritis K52.9 ; Renal failure N19 and Other hypotension I95.89 [facility] [id number] [place] [address] Jul, [facility] [id number] [place] [address] Jul, [facility] [id number] [place] [address] Jul, [facility] [id number] [place] [address] Jun, [facility] [id number] [place] [address] Jun, Major depression in partial remission 296.25 ; Generalized anxiety disorder 300.02 and ADHD, predominantly inattentive type 314.01 [facility] [id number] [place] [address] May, [facility] [id number] [place] [address] Apr, Major depressive disorder, recurrent episode, severe, without mention of psychotic behavior 296.33 ; Agoraphobia with panic disorder 300.21 and Generalized anxiety disorder 300.02 [facility] [id number] [place] [address] Apr, ADHD (attention deficit hyperactivity disorder), combined type 314.01 ; Generalized anxiety disorder 300.02 and Dysthymic disorder 300.4 [facility] [id number] [place] [address] Apr, CAD (coronary artery disease) 414.00 ; HTN (hypertension) 401.9 and Tobacco use 305.1 [facility] [id number] [place] [address] Apr, [facility] [id number] [place] [address] Mar, ADHD (attention deficit hyperactivity disorder), combined type 314.01 ; Generalized anxiety disorder 300.02 ; Dysthymic disorder 300.4 ; No condition on [place] V71.09 ; Rheumatoid arthritis 714.0 ; Incontinence 788.30 ; Irritable bowel syndrome 564.1 ; Osteoporosis 733.00 and Chronic pain 338.29 [facility] [id number] [place] [address] Mar, Agoraphobia with panic disorder 300.21 and Major depressive disorder, recurrent episode, moderate 296.32 [facility] [place] [id number] [place] [address] Mar, [facility] [id number] [place] [address] February, [facility] [id number], [place] [address] February, Agoraphobia with panic disorder 300.21 and Major depressive disorder, recurrent episode, moderate 296.32 [facility] [id number] [place] [address] February, [facility] [id number] [address] Jan, [facility] [address] [facility] [id number] [place] [address] Jan, [facility] [id number] [place] [address] Dec, [facility] [id number] [place] [address] Dec, [facility] [id number] [place] [address] Dec, [facility] [id number] [address] Dec, [facility] [id number] [address] Dec, [facility] [id number], [place] [address] Dec, [facility] [id number], [place] [address] Nov, [facility] [id number], [place] [address] Nov, [facility] [id number] [place] [address] Nov, [facility] [id number], [place] [address] Nov, [facility] [id number], [place] [address] Nov, 2014 [facility] [place] [facility] [address] [id number] [place] [address] Nov, [facility] [place] [facility] [address] [id number] [place] [address] Nov, [facility] [place] [facility] [address] [id number] [place] [address] Nov, [facility] [place] [facility] [address] [id number] [place] [address] Oct, [facility] [place] [facility] [address] [id number] [place] [address] Oct, [facility] [place] [facility] [address] [id number] [place] [address] Oct, [facility] [place] [facility] [address] [id number] [place] [address] Oct, [facility] [place] [facility] [address] [id number] [place] [address] Oct, [facility] [place] [facility] [address] [id number] [place] [address] Oct, [facility] [place] [facility] [address] [facility] [id number] [place] [address] Sep, [facility] [place] [facility] [address] [id number] [place] [address] Sep, [facility] [place] [facility] [address] [id number] [place] [address] Sep, [facility] [place] [facility] [address] [id number] [place] [address] Sep, [facility] [place] [facility] [address] [id number] [place] [address] Sep, [facility] [place] [facility] [address] [facility] [id number] [place] [address] Sep, [facility] [place] [facility] [address] [id number] [place] [address] Sep, [facility] [place] [facility] [address] [id number] [place] [address] Aug, [facility] [place] [facility] [address] [id number] [place] [address] Aug, [facility] [place] [facility] [address] [id number] [place] [address] Aug, [facility] [place] [facility] [address] [id number] [place] [address] Aug, [facility] [place] [facility] [address] [id number] [place] [address] Aug, [facility] [place] [facility] [address] [id number] [place] [address] Aug, [facility] [place] [facility] [address] [id number] [place] [address] Jul, [facility] [place] [facility] [address] [id number] [place] [address] Jul, [facility] [place] [facility] [address] [id number] [place] [address] Jul, [facility] [place] [facility] [address] [id number] [place] [address] Jul, [facility] [place] [facility] [address] [id number] [place] [address] Jul, [facility] [place] [facility] [address] [id number] [place] [address] Jul, [facility] [place] [facility] [address] [id number] [place] [address] Jun, [facility] [place] [facility] [address] [id number] [place] [address] Jun, [facility] [place] [facility] [address] [id number] [place] [address] May, [facility] [place] [facility] [address] [id number] [place] [address] May, [facility] [place] [facility] [address] [id number] [place] [address] Apr, [facility] [place] [facility] [address] [id number] [place] [address] Apr, [facility] [place] [facility] [address] [id number] [place] [address] Apr, [facility] [place] [facility] [address] [id number] [place] [address] Apr, [facility] [place] [facility] [address] [id number] [place] [address] Mar, [facility] [place] [facility] [address] [id number] [place] [address] Mar, [facility] [place] [facility] [address] [id number] [place] [address] Mar, [facility] [place] [facility] [address] [id number] [place] [address] Mar, [facility] [place] [facility] [address] [id number] [place] [address] February, [facility] [place] [facility] [address] [id number] [place] [address] February, [facility] [place] [facility] [address] [id number] [place] [address] February, [facility] [place] [facility] [address] [id number] [place] [address] February, [facility] [place] [facility] [address] [id number] [place] [address] February, [facility] [place] [facility] [address] [id number] [place] [address] February, [facility] [place] [facility] [address] [id number] [place] [address] Jan, [facility] [place] [facility] [address] [id number] [place] [address] Jan, [facility] [place] [facility] [address] [id number] [place] [address] Dec, [facility] [place] [facility] [address] [id number] [place] [address] Dec, [facility] [place] [facility] [address] [id number] [place] [address] Nov, [facility] [place] [facility] [address] [id number] [place] [address] Nov, [facility] [place] [facility] [address] [id number] [place] [address] Oct, [facility] [place] [facility] [address] [id number] [place] [address] Oct, [facility] [place] [facility] [address] [id number] [place] [address] Oct, [facility] [place] [facility] [address] [id number] [place] [address] Oct, [facility] [place] [facility] [address] [id number] [place] [address] Sep, [facility] [place] [facility] [address] [id number] [place] [address] Sep, [facility] [place] [facility] [address] [id number] [place] [address] Sep, [facility] [place] [facility] [address] [id number] [place] [address] Sep, [facility] [place] [facility] [address] [id number] [place] [address] Sep, [facility] [place] [facility] [address] [id number] [place] [address] Sep, [facility] [place] [facility] [address] [id number] [place] [address] Sep, [facility] [place] [facility] [address] [id number] [place] [address] Sep, [facility] [place] [facility] [address] [id number] [place] [address] Aug, [facility] [place] [facility] [address] [id number] [place] [address] Aug, [facility] [place] [facility] [address] [id number] [place] [address] Aug, [facility] [place] [facility] [address] [id number] [place] [address] Aug, [facility] [address] [id number] [place] [address] Aug, [facility] [place] [facility] [address] [id number] [place] [address] Aug, [facility] [place] [facility] [address] [id number] [place] [address] Aug, [facility] [place] [facility] [address] [id number] [place] [address] Aug, [facility] [place] [facility] [address] [id number] [place] [address] Aug, [facility] [place] [facility] [address] [id number] [place] [address] Jul, [facility] [place] [facility] [address] [id number] [place] [address] Jun, [facility] [place] [facility] [address] [id number] [place] [address] May, [facility] [place] [facility] [address] [id number] [place] [address] May, [facility] [place] [facility] [address] [id number] [place] [address] May, [facility] [address] [id number] [place] [address] Apr, [facility] [place] [facility] [address] [id number] [place] [address] Mar, [facility] [place] [facility] [address] [id number] [place] [address] February, [facility] [place] [facility] [address] [id number] [place] [address] Oct, [facility] [place] [facility] [address] [id number] [place] [address] Oct, [facility] [place] [facility] [address] [id number] [place] [address] Oct, [facility] [place] [facility] [address] [id number] [place] [address] Oct, [facility] [place] [facility] [address] [id number] [place] [address] Oct, [facility] [place] [facility] [address] [id number] [place] [address] Oct, [facility] [place] [facility] [address] [id number] [place] [address] Sep, [facility] [place] [facility] [address] [id number] [place] [address] Sep, [facility] [place] [facility] [address] [id number] [place] [address] Aug, [facility] [place] [facility] [address] [id number] [place] [address] Aug, [facility] [place] [facility] [address] [id number] [place] [address] Jul, [facility] [place] [facility] [address] [id number] [place] [address] Jul, [facility] [place] [facility] [address] [id number] [place] [address] Jul, [facility] [place] [facility] [address] [id number] [place] [address] Jul, [facility] [place] [facility] [address] [id number] [place] [address] Jul, [facility] [place] [facility] [address] [id number] [place] [address] Jul, [facility] [place] [facility] [address] [id number] [place] [address] Jul, [facility] [place] [facility] [address] [id number] [place] [address] Jul, [facility] [place] [facility] [address] [id number] [place] [address] Jun, [facility] [place] [facility] [address] [id number] [place] [address] Jun, [facility] [place] [facility] [address] [id number] [place] [address] May, [facility] [place] [facility] [address] [id number] [place] [address] Apr, [facility] [place] [facility] [address] [id number] [place] [address] Mar, [facility] [place] [facility] [address] [id number] [place] [address] Mar, [facility] [place] [facility] [address] [id number] [place] [address] Mar, [facility] [place] [facility] [address] [id number] [place] [address] Mar, [facility] [place] [facility] [address] [id number] [place] [address] Jan, [facility] [place] [facility] [address] [id number] [place] [address] Nov, [facility] [place] [facility] [address] [id number] [place] [address] Nov, [facility] [place] [facility] [address] [id number] [place] [address] Nov, [facility] [place] [facility] [address] [id number] [place] [address] Oct, [facility] [place] [facility] [address] [id number] [place] [address] Sep, [facility] [place] [facility] [address] [id number] [place] [address] Sep, [facility] [place] [facility] [address] [id number] [place] [address] Aug, [facility] [place] [facility] [address] [id number] [place] [address] Aug, [facility] [place] [facility] [address] [id number] [place] [address] Aug, [facility] [place] [facility] [address] [id number] [place] [address] Aug, [facility] [place] [facility] [address] [id number] [place] [address] Jul, [facility] [place] [facility] [address] [id number], [place] [address] May, [facility] [place] [facility] [address] [id number], [place] [address] Jan, [facility] [place] [facility] [address] [id number] [place] [address] Nov, [facility] [place] [facility] [address] [id number], [place] [address] Apr, [facility] [place] [facility] [address] [id number] [place] [address] Dec, [facility] [place] [facility] [address] [facility] [id number] [place] [address] Nov, IMMUNIZATIONS No Known Immunizations SOCIAL HISTORY Never Assessed REASON FOR VISIT EMR[place] [place] CARE VITAL SIGNS MEDICATIONS Unknown Medications RESULTS No Results PROCEDURES No Known procedures INSTRUCTIONS MEDICATIONS ADMINISTERED No Known Medications MEDICAL (GENERAL) HISTORY Type Description Date Medical History Cardiovascular [id number], non-obstructive per (01/2011) Dr. Mendoza Medical History Stress test 03/07/13-Dr. Kelly Dietrich normal Medical History Hypertension Medical History Asthma Medical History Gastrointestinal Disorder--IBS, GERD, Hx of fatty liver Medical History Hernia 1979 Medical History Cervical dysplasia 02/16-Pap LGSIL/[place]-mild dysplasia Medical History Hyperlipidemia Medical History Rheumatoid [...] Kidney injury 07/10/15-07/11/2015 Hospitalization History Symptomatic Hypokalemia/Nause-[facility]ia [facility] 05/13/16 Hospitalization History Stroke 05/03/2017 Hospitalization History stroke 08/24/2017--09/01/2017
--- OUTSIDE RECORDS SUMMARY | 2019-05-22 07:33 | XMS REPORT ---
Author Author Migration, Doctor Organization [facility] Address Unknown Phone Unavailable Care Team Providers Care Air [employer] Operations Agent Name Role Phone Migration, Doctor Unavailable Unavailable PROBLEMS Type Condition ICD9-CM Code [id number] Code Onset Dates Condition Status SNOMED Code Problem Hemiparesis of left nondominant side as late effect of cerebral infarction I69.354 Active 387769632 Problem Generalized anxiety disorder F41.1 Active 23928919 Problem Morbid (severe) obesity due to excess calories E66.01 Active 197752309 Problem Chronic pain syndrome G89.4 Active 235449716 Problem ADHD (attention deficit hyperactivity disorder), combined type F90.2 Active 72981274 Problem Asthma J45.909 Active 224007984 Problem Rheumatoid arthritis M06.9 Active 33390029 Problem Anxiety F41.9 Active 42461210 Problem Gastroesophageal reflux disease with esophagitis K21.0 Active 661630733 Problem Neuropathy G62.9 Active 070725134 Problem Hyperinsulinemia E16.1 Active 46646998 Problem Obstructive sleep apnea G47.33 Active 13406293 Problem Other insomnia G47.09 Active 295204185 Problem Cerebrovascular accident (CVA), unspecified mechanism I63.9 Active 934975905 Problem Other salvage determiner (current) drug therapy Z79.899 Active 551040119 Problem Sleep apnea in adult G47.30 Active 76954192 Problem Dysthymic disorder F34.1 Active 64364090 Problem Irritable bowel syndrome with diarrhea K58.0 Active 888395299 Problem Panic attacks F41.0 Active 068626877 Problem Mild episode of recurrent major depressive disorder F33.0 Active 255344009 Problem Chronic obstructive pulmonary disease J44.9 Active 92703153 Problem Arteriosclerotic coronary artery disease I25.10 Active 70040994 Problem Hemiplegia affecting left nondominant side G81.94 Active Problem Hypertension I10 Active 12760176 Problem Mixed hyperlipidemia E78.2 Active 124064649 Problem Seasonal allergies J30.2 Active 922076348 Problem Primary insomnia F51.01 Active 6919616 Problem Paroxysmal atrial fibrillation I48.0 Active 022587140 Problem Unsteady gait R26.81 Active 06874458 ALLERGIES No Information ENCOUNTERS Encounter Location Date Diagnosis [facility] [id number] [place] [address] February, [facility] [id number] [place] [address] 15 Jan, 2019 Other insomnia G47.09 ; Hypertension I10 ; Rheumatoid arthritis M06.9 ; Mild episode of recurrent major depressive disorder F33.0 ; Breast cancer screening Z12.39 ; Arteriosclerotic coronary artery disease I25.10 ; Morbid (severe) obesity due to excess calories E66.01 and Hemiparesis of left nondominant side as late effect of cerebral infarction I69.354 [facility] [id number] [place] [address] 08 Jan, 2019 Asthma J45.909 and Other insomnia G47.[address] [address] Jan, [facility] [facility] [id number] [place] [address] Dec, Generalized anxiety disorder F41.1 and Mild episode of recurrent major depressive disorder F33.0 [facility] [id number] [place] [address] Dec, [facility] [facility] [id number] [place] [address] Dec, [facility] [id number] [place] [address] Dec, [facility] [id number] [place] [id number] Nov, Viral upper respiratory tract infection J06.9 [facility] [id number] [place] [address] Nov, [facility] [facility] [address] [address] Oct, [facility] [place] [address] [address] Sep, [facility] [place] [id number] [place] [address] Sep, [facility] [place] [id number] [place] [address] Sep, [facility] [place] [id number] [place] [address] Sep, Orthostatic hypotension I95.1 ; Shortness of breath R06.02 ; Right foot pain M79.671 and Morbid (severe) obesity due to excess calories E66.01 [facility] [place] [id number] [place] [address] Aug, [facility] [place] [id number] [place] [address] Aug, [facility] [place] [id number] [place] [address] Aug, [facility] [place] [id number] [place] [address] Aug, [facility] [place] [id number] [place] [address] Aug, [facility] [place] [address] [address] Jul, [facility] [place] [id number] [place] [address] Jul, [facility] [id number] [address] Jul, [facility] [id number] [place] [address] Jul, [facility] [address], [place] [address] Jul, [facility] [place] [address] [address] Jul, [facility] [address] [place] [id number] Jul, Hemiplegia affecting left nondominant side G81.94 ; Chronic obstructive pulmonary disease J44.9 and Weakness R53.1 [facility] [place] [address] [place] [address] Jul, [facility] [address] [place] [id number] Jul, Weakness R53.1 ; Paroxysmal atrial fibrillation I48.0 and Unsteady gait R26.81 [facility] [id number] [place] [address] Jul, Tobacco abuse Z72.0 [facility] [address] [place] [id number] Jun, History of acute respiratory failure Z87.09 ; Weight gain R63.5 and Tobacco abuse Z72.0 [facility] [id number] [place] [address] Jun, [facility] [id number] [place] [address] May, Primary insomnia F51.01 [facility] [id number] [place] [address] May, Mild episode of recurrent major depressive disorder F33.0 [facility] [address] [place] [address] May, [facility] [address] [place] [address] May, Chronic obstructive pulmonary disease, unspecified COPD type J44.9 ; Primary insomnia F51.01 ; Fatigue, unspecified type R53.83 and Weight gain R63.5 [facility] [place] [address], [place] [address] May, Thrush B37.0 [facility] [id number] [place] [address] May, Mild episode of recurrent major depressive disorder F33.0 and Generalized anxiety disorder F41.1 [facility] [id number] [place] [address] May, Thrush B37.0 [facility] [id number] [place] [address] Apr, Cough R05 [facility] [place] [id number] [place] [address] Mar, Mild episode of recurrent major depressive disorder F33.0 [facility] [address] [address] Mar, Mild episode of recurrent major depressive disorder F33.0 and Generalized anxiety disorder F41.1 [facility] [id number] [place] [address] Mar, Seasonal allergies J30.2 [facility] [id number] [place] [address] Mar, Seasonal allergies J30.2 [facility] [id number] [place] [address] February, Generalized anxiety disorder F41.1 [facility] [id number] [place] [address] February, Cough R05 and Seasonal allergies J30.2 [facility] [place] [id number] [place] [address] February, Generalized anxiety disorder F41.1 and Mild episode of recurrent major depressive disorder F33.0 [facility] [id number] [place] [address] February, Other salvage determiner (current) drug therapy Z79.899 ; Anxiety F41.9 ; Panic attacks F41.0 and Irritable bowel syndrome with diarrhea K58.0 [facility] [address] [place] [address] February, [facility] [place] [id number] [place] [address] Jan, Mixed hyperlipidemia E78.2 [facility] [place] [id number] [place] [address], [place] [address] Jan, [facility] [place] [id number] [place] [address] Jan, [facility] [place] [id number] [place] [address], [place] [address] Jan, [facility] [place] [id number] [place] [address], [place] [address] Jan, [facility] [place] [id number] [place] [address] Dec, [facility] [place] [id number] [place] [address] Dec, [facility] [place] [id number] [place] [address] Dec, [facility] [place] [id number] [place] [address] Nov, Dysthymic disorder F34.1 [facility] [place] [id number] [place] [address] Oct, [facility] [place] [id number] [place] [address] Oct, [facility] [place] [id number] [place] [address] Oct, [facility] [place] [id number] [place] [address] Oct, Diarrhea, unspecified type R19.7 and Dysuria R30.0 [facility] [place] [id number] [place] [address] Oct, [facility] [place] [address], [place] [address] Sep, [facility] [place] [id number] [place] [address] Sep, [facility] [place] [id number] [place] [address] Sep, Anxiety F41.9 [facility] [id number] [place] [address] Sep, Cerebrovascular accident (CVA), unspecified mechanism I63.9 ; Mixed hyperlipidemia E78.2 ; Gastroesophageal reflux disease with esophagitis K21.0 and Anxiety F41.9 [facility] [id number] [place] [address] Sep, [facility] [id number] [place] [address] Aug, Chronic obstructive pulmonary disease, unspecified J44.9 ; Asthma J45.909 ; Nausea R11.0 ; Dysthymic disorder F34.1 ; Cerebrovascular accident (CVA), unspecified mechanism I63.9 and Rheumatoid arthritis M06.9 [place] [id number] [place] [address] Aug, Nausea R11.0 ; Encounter for immunization Z23 ; Sleep apnea in adult G47.30 ; Rheumatoid arthritis involving multiple sites, unspecified rheumatoid factor presence M06.9 ; Generalized anxiety disorder F41.1 ; Dysthymic disorder F34.1 and Asthma J45.909 [facility] [id number] [place] [address] Jul, [facility] [id number] [place] [address] May, ADHD (attention deficit hyperactivity disorder), combined type F90.2 ; Generalized anxiety disorder F41.1 and Persistent depressive disorder F34.1 [facility] [id number] [place] [address] May, Cerebrovascular accident (CVA), unspecified mechanism I63.9 [facility] [facility] [address] [address] Apr, Mixed hyperlipidemia E78.2 and Cerebrovascular accident (CVA), unspecified mechanism I63.9 [facility] [facility] [address] [address] Apr, Generalized anxiety disorder F41.1 [facility] [facility] [address] [address] Apr, Bronchitis J40 and Tobacco use Z72.0 [facility] [facility] [address] [address] Apr, Mixed hyperlipidemia E78.2 [facility] [facility] [address] [address] Apr, Other fpc (current) drug therapy Z79.899 [facility] [facility] [address] [address] Apr, [facility] [facility] [address] [address] Apr, Generalized anxiety disorder F41.1 [facility] [facility] [address] [address] Apr, Obstructive sleep apnea G47.33 and Hyperinsulinemia E16.1 [facility] [facility] [address] [address] Apr, ADHD (attention deficit hyperactivity disorder), combined type F90.2 ; Generalized anxiety disorder F41.1 and Persistent depressive disorder F34.1 [facility] [facility] [address] [address] Mar, [place] [facility] [address] [address] Mar, Generalized anxiety disorder F41.1 [facility] [facility] [address] [address] Mar, Tarsal tunnel syndrome of both lower extremities G57.53 [facility] [facility] [id number] [place] [address] February, [facility] [place] [id number] [place] [address] February, [facility] [id number] [place] [address] February, Asthma J45.909 [facility] [id number] [place] [address] February, Generalized anxiety disorder F41.1 [facility] [id number] [place] [address] February, Hypoxemia R09.02 ; Hyperglycemia R73.9 ; Rheumatoid arthritis M06.9 and Generalized anxiety disorder F41.1 [facility] [id number] [place] [address] February, [facility] [id number] [place] [address] Jan, Chronic obstructive pulmonary disease, unspecified J44.9 [facility] [id number] [place] [address] Jan, Chronic pain syndrome G89.4 [facility] [id number] [place] [address] Jan, Hypoxemia R09.02 [facility] [facility] [id number] [place] [address] Jan, [facility] [id number] [place] [address] Jan, Chronic obstructive pulmonary disease, unspecified J44.9 ; Hypoxemia R09.02 ; Other insomnia G47.09 and Left anterior shoulder pain M25.512 [facility] [id number] [place] [address] Jan, Numbness in feet R20.0 and Neuropathy G62.9 [facility] [place] [id number] [place] [address] Jan, [facility] [place] [id number] [place] [address] Dec, Acute pain of left shoulder M25.512 [facility] [id number] [place] [address] Dec, Acute pain of left shoulder M25.512 [facility] [place] [id number] [place] [address] Dec, Generalized anxiety disorder F41.1 [facility] [place] [id number] [place] [address] Dec, Generalized anxiety disorder F41.1 [facility] [place] [id number] [place] [address] Nov, ADHD (attention deficit hyperactivity disorder), combined type F90.2 ; Generalized anxiety disorder F41.1 and Persistent depressive disorder F34.1 [facility] [place] [id number] [place] [address] Nov, Acute pain of left shoulder M25.512 [facility] [place] [id number] [place] [address] Nov, ADHD (attention deficit hyperactivity disorder), combined type F90.2 ; Generalized anxiety disorder F41.1 and Persistent depressive disorder F34.1 [facility] [place] [id number] [place] [address] Nov, Chronic pain syndrome G89.4 [facility] [id number] [place] [address] 13 Nov, 2016 Chronic pain syndrome G89.4 [facility] [place] [address] [place] [address] 08 Nov, 2016 Acute pain of left shoulder M25.512 [place] [id number] [place] [address] Nov, Generalized anxiety disorder F41.1 [place] [facility] [id number] [place] [address] Nov, Acute pain of left shoulder M25.512 [place] [facility] [id number] [place] [address] Nov, ADHD (attention deficit hyperactivity disorder), combined type F90.2 ; Generalized anxiety disorder F41.1 and Persistent depressive disorder F34.1 [place] [id number] [place] [address] Nov, Acute pain of left shoulder M25.512 ; Generalized anxiety disorder F41.1 ; Chronic pain syndrome G89.4 ; Hyperinsulinemia E16.1 ; Pain of left foot M79.672 and Pain in right foot M79.671 [place] [id number] [place] [address] Oct, ADHD (attention deficit hyperactivity disorder), combined type F90.2 ; Generalized anxiety disorder F41.1 and Dysthymic disorder F34.1 [place] [address] [place] [address] Sep, [place] [address] [place] [address] Sep, [place] [facility] [id number] [place] [address] Sep, Routine gynecological examination V72.31 ; Cervical cancer screening Z12.4 ; Breast cancer screening Z12.39 ; Colon cancer screening Z12.11 ; Hypokalemia E87.6 ; Herpes simplex type 1 infection B00.9 and Abscess of right axilla L02.411 [place] [address] [place] [address] Sep, [place] [id number] [place] [address] Sep, ADHD (attention deficit hyperactivity disorder), combined type F90.2 ; Generalized anxiety disorder F41.1 and Dysthymic disorder F34.1 [place] [id number] [place] [address] Aug, [facility] [id number] [place] [address] Aug, [place] [address] [address] Aug, Generalized anxiety disorder F41.1 [place] [id number] [place] [address] Aug, ADHD (attention deficit hyperactivity disorder), combined type F90.2 ; Generalized anxiety disorder F41.1 and Dysthymic disorder F34.1 [place] [address] [address] Jul, Chronic pain syndrome G89.4 ; Hypertension I10 ; Hypokalemia E87.6 ; Asthma J45.909 and Nausea R11.0 [place] [id number] [place] [address] Jul, [place] [id number] [place] [address] Jul, Asthma J45.909 [place] [id number] [place] [address] Jul, ADHD (attention deficit hyperactivity disorder), combined type F90.2 ; Generalized anxiety disorder F41.1 and Dysthymic disorder F34.1 [place] [id number] [place] [address] Jul, [place] [id number] [place] [address] Jul, Hypertension I10 ; Arteriosclerotic coronary artery disease I25.10 ; Mixed hyperlipidemia E78.2 ; Other fpc (current) drug therapy Z79.899 and Hyperglycemia R73.9 [place] [address] [id number] [place] [id number] 16 Jun, 2016 Hypokalemia E87.6 and Hyperglycemia R73.9 [place] [address] [place] [id number] [place] [id number] 14 Jun, 2016 [place] [address] [address] 13 Jun, 2016 Abnormal kidney function N28.9 [place] [address] [address] Jun, [place] [address] [address] Jun, ADHD (attention deficit hyperactivity disorder), combined type F90.2 ; Generalized anxiety disorder F41.1 and Dysthymic disorder F34.1 [place] [address] [address] Jun, Generalized anxiety disorder F41.1 and Dysthymic disorder F34.1 [place] [address] [place] [id number] Jun, Hypokalemia E87.6 [place] [address] [address] May, Hypokalemia E87.6 ; Vertigo R42 and Hyperinsulinemia E16.1 [place] [address] [place] [id number] [place] [address] May, [place] [address] [address] May, Abnormal kidney function N28.9 ; Hyperinsulinemia E16.1 and Nausea R11.0 [place] [address] [address] May, Hypokalemia E87.6 ; Nausea R11.0 ; Epigastric pain R10.13 ; Dehydration E86.0 ; Diaphoresis R61 and Right arm pain M79.601 [place] [address] [place] [id number] [place] [address] May, [place] [address] [place] [id number] [place] [address] May, Hypokalemia E87.6 [place] [address] [address] May, Hypokalemia E87.6 [place] [address] [place] [id number] [place] [address] Apr, [place] [address] [address] Apr, ADHD (attention deficit hyperactivity disorder), combined type F90.2 ; Generalized anxiety disorder F41.1 and Dysthymic disorder F34.1 [place] [address] [address] Apr, Right arm pain M79.601 and Hyperinsulinemia E16.1 [place] [address] [address] Mar, [place] [address] [address] Mar, [place] [address] [place] [id number] [place] [address] Mar, Hyperinsulinemia E16.1 ; Hyperlipidemia, unspecified hyperlipidemia type E78.5 ; Central venous catheter in place Z78.9 ; Generalized anxiety disorder F41.1 and Urinary tract infection, site not specified N39.0 [place] [address] [address] Mar, ADHD (attention deficit hyperactivity disorder), combined type F90.2 ; Generalized anxiety disorder F41.1 and Dysthymic disorder F34.1 [place] [address] [address] February, ADHD (attention deficit hyperactivity disorder), combined type F90.2 ; Generalized anxiety disorder F41.1 and Dysthymic disorder F34.1 [place] [address] [place] [id number] [place] [address] February, [place] [address] [place] [id number] [place] [address] February, [place] [address] [place] [id number] [place] [address] February, Hypertension I10 and Weight gain R63.5 [place] [address] [place] [id number] [place] [address] February, Major depressive disorder, recurrent, moderate F33.1 and Generalized anxiety disorder F41.1 [place] [address] [place] [id number] [place] [address] February, ADHD (attention deficit hyperactivity disorder), combined type F90.2 ; Generalized anxiety disorder F41.1 and Dysthymic disorder F34.1 [place] [address] [place] [id number] [place] [address] February, [place] [address] [place] [id number] [place] [address] February, Asthma J45.909 ; Weight gain R63.5 ; Hypertension I10 ; Rheumatoid arthritis M06.9 and Chronic pain syndrome G89.4 [place] [address] [place] [id number] [place] [address] Jan, ADHD (attention deficit hyperactivity disorder), combined type F90.2 ; Generalized anxiety disorder F41.1 and Dysthymic disorder F34.1 [place] [address] [place] [id number] [place] [address] Dec, ADHD (attention deficit hyperactivity disorder), combined type F90.2 ; Generalized anxiety disorder F41.1 and Dysthymic disorder F34.1 [place] [address] [place] [id number] [place] [address] Dec, [facility] [place] [address] [address] Nov, [facility] [place] [address], [place] [address] Nov, [facility] [place] [address], [place] [address] Nov, [facility] [place] [address], [place] [address] Nov, [facility] [place] [address], [place] [address] Oct, [facility] [place] [address], [place] [address] Oct, [facility] [place] [id number], [place] [address] Oct, [facility] [place] [id number], [place] [address] Sep, [facility] [place] [address], [place] [address] Sep, [facility] [place] [id number], [place] [address] Sep, Agoraphobia with panic disorder F40.01 ; Attention-deficit hyperactivity disorder, combined type F90.2 and Dysthymic disorder F34.1 [facility] [place] [address], [place] [address] Aug, [facility] [place] [address], [place] [address] Aug, [facility] [place] [address], [place] [address] Aug, [facility] [place] [address], [place] [address] Aug, Dysthymic disorder F34.1 ; Generalized anxiety disorder F41.1 and ADHD (attention deficit hyperactivity disorder), combined type F90.2 [facility] [place] [address] [place] [id number] [place] [address] Aug, ADHD (attention deficit hyperactivity disorder), combined type F90.2 ; Generalized anxiety disorder F41.1 and Dysthymic disorder F34.1 [facility] [place] [address] [place] [id number] [place] [address] Jul, Urinary tract infection, site not specified N39.0 ; Hypotension, unspecified I95.9 and Breast cancer screening Z12.39 [place] [address] [place] [id number] [place] [address] Jul, [facility] [place] [address] [place] [id number] [place] [address] Jul, [facility] [place] [address] [place] [id number] [place] [address] Jul, Urinary tract infection, site not specified N39.0 ; Nausea R11.0 ; Gastroenteritis K52.9 ; Renal failure N19 and Other hypotension I95.89 [facility] [place] [address] [place] [id number] [place] [address] Jul, [facility] [place] [address] [place] [address] [id number] [place] [address] Jul, [facility] [place] [address] [place] [id number] [place] [address] Jul, [facility] [place] [address] [place] [id number] [place] [address] Jun, [facility] [place] [address] [place] [id number] [place] [address] Jun, Major depression in partial remission 296.25 ; Generalized anxiety disorder 300.02 and ADHD, predominantly inattentive type 314.01 [facility] [place] [address] [place] [id number] [place] [address] May, [facility] [place] [address], [place] [address] Apr, Major depressive disorder, recurrent episode, severe, without mention of psychotic behavior 296.33 ; Agoraphobia with panic disorder 300.21 and Generalized anxiety disorder 300.02 [place] [id number] [place] [address] Apr, ADHD (attention deficit hyperactivity disorder), combined type 314.01 ; Generalized anxiety disorder 300.02 and Dysthymic disorder 300.4 [place] [id number] [place] [address] Apr, CAD (coronary artery disease) 414.00 ; HTN (hypertension) 401.9 and Tobacco use 305.1 [place] [id number] [place] [address] Apr, [place] [id number] [place] [address] Mar, ADHD (attention deficit hyperactivity disorder), combined type 314.01 ; Generalized anxiety disorder 300.02 ; Dysthymic disorder 300.4 ; No condition on [place] II V71.09 ; Rheumatoid arthritis 714.0 ; Incontinence 788.30 ; Irritable bowel syndrome 564.1 ; Osteoporosis 733.00 and Chronic pain 338.29 [address], [place] [address] Mar, Agoraphobia with panic disorder 300.21 and Major depressive disorder, recurrent episode, moderate 296.32 [place] [id number] [place] [address] Mar, [place] [address] [place] [id number] [place] [address] February, [place] [id number] [place] [address] February, Agoraphobia with panic disorder 300.21 and Major depressive disorder, recurrent episode, moderate 296.32 [place] [id number] [place] [address] February, [facility] [place] [facility] [address] [id number] [place] [address] Jan, [facility] [place] [facility] [address] [id number] [place] [address] Jan, [facility] [place] [facility] [address] [id number] [place] [address] Dec, [facility] [place] [facility] [address] [id number] [place] [address] Dec, [facility] [place] [facility] [address] [id number] [place] [address] Dec, [facility] [place] [facility] [address] [facility] [id number] [place] [address] Dec, [facility] [place] [facility] [address] [facility] [id number] [place] [address] Dec, [facility] [place] [facility] [address] [facility] [id number] [place] [address] Dec, [facility] [place] [facility] [address] [facility] [id number] [place] [address] Nov, [facility] [place] [facility] [address] [facility] [id number] [place] [address] Nov, [facility] [place] [facility] [address] [facility] [id number] [place] [address] Nov, [facility] [place] [facility] [address] [facility] [id number] [place] [address] Nov, [facility] [place] [facility] [address] [id number] [place] [address] Nov, [facility] [place] [facility] [address] [facility] [id number] [place] [address] 17 Nov, 2014 [facility] [place] [facility] [address] [facility] [id number] [place] [address] Nov, [facility] [place] [facility] [address] [id number] [place] [address] Nov, [facility] [place] [facility] [address] [id number] [place] [address] Oct, [facility] [place] [facility] [address] [facility] [id number] [place] [address] Oct, [facility] [place] [facility] [address] [id number] [place] [address] Oct, [facility] [place] [facility] [address] [id number] [place] [address] Oct, [facility] [place] [facility] [address] [facility] [id number] [place] [address] Oct, [facility] [place] [facility] [address] [facility] [id number] [place] [address] Oct, [facility] [place] [facility] [address] [id number] [place] [address] Sep, [facility] [place] [facility] [address] [id number] [place] [address] Sep, [facility] [place] [facility] [address] [id number] [place] [address] Sep, [facility] [place] [facility] [address] [id number], [place] [address] Sep, [facility] [place] [facility] [address] [id number], [place] [address] Sep, [facility] [place] [facility] [address] [id number] [place] [address] Sep, [facility] [place] [facility] [address] [facility] [id number] [place] [address] Sep, [facility] [place] [facility] [address] [id number] [place] [address] Aug, [facility] [place] [facility] [address] [id number] [place] [address] Aug, [facility] [place] [facility] [address] [id number] [place] [address] Aug, [facility] [place] [facility] [address] [id number] [place] [address] Aug, [facility] [place] [facility] [address] [id number] [place] [address] Aug, [facility] [place] [facility] [address] [id number] [place] [address] Aug, [facility] [place] [facility] [address] [id number] [place] [address] Jul, [facility] [place] [facility] [address] [id number] [place] [address] Jul, [facility] [place] [facility] [address] [id number] [place] [address] Jul, [facility] [place] [facility] [address] [id number] [place] [address] Jul, [facility] [place] [facility] [address] [id number] [place] [address] Jul, [facility] [place] [facility] [address] [facility] [id number] [place] [address] Jul, [facility] [place] [facility] [address] [id number] [place] [address] Jun, [facility] [place] [facility] [address] [id number] [place] [address] Jun, [facility] [place] [facility] [address] [id number] [place] [address] May, [facility] [place] [facility] [address] [id number] [place] [address] May, [facility] [place] [facility] [address] [id number] [place] [address] Apr, [facility] [place] [facility] [address] [id number] [place] [address] Apr, [facility] [place] [facility] [address] [id number] [place] [address] Apr, [facility] [place] [facility] [address] [id number] [place] [address] Apr, [facility] [place] [facility] [address] [id number] [place] [address] Mar, [facility] [place] [facility] [address] [id number] [place] [address] Mar, [facility] [place] [facility] [address] [id number] [place] [address] Mar, [facility] [place] [facility] [address] [id number] [place] [address] Mar, [facility] [place] [facility] [address] [id number] [place] [address] February, [facility] [place] [facility] [address] [id number] [place] [address] February, [facility] [place] [facility] [address] [id number] [place] [address] February, [facility] [place] [facility] [address] [id number] [place] [address] February, [facility] [place] [facility] [address] [id number] [place] [address] February, [facility] [place] [facility] [address] [id number] [place] [address] February, [facility] [place] [facility] [address] [id number] [place] [address] Jan, [facility] [place] [facility] [address] [id number] [place] [address] Jan, [facility] [place] [facility] [address] [id number], [place] [address] Dec, [facility] [address] [id number] [place] [address] Dec, [facility] [place] [facility] [address] [id number] [place] [address] Nov, [facility] [place] [facility] [address] [id number] [place] [address] Nov, [facility] [place] [facility] [address] [id number] [place] [address] Oct, [facility] [address] [id number] [place] [address] Oct, [facility] [address] [id number] [place] [address] Oct, [facility] [address] [id number] [place] [address] Oct, [facility] [address] [id number] [place] [address] Sep, [facility] [address] [id number] [place] [address] Sep, [facility] [address] [facility] [id number] [place] [address] Sep, [facility] [place] [facility] [address] [id number] [place] [address] Sep, [facility] [place] [facility] [address] [id number], [place] [address] Sep, [facility] [place] [facility] [address] [id number] [place] [address] Sep, [facility] [place] [facility] [address] [id number] [place] [address] Sep, [facility] [place] [facility] [address] [facility] [id number] [place] [address] Sep, [facility] [place] [facility] [address] [id number] [place] [address] Aug, [facility] [place] [facility] [address] [id number] [place] [address] Aug, [facility] [place] [facility] [address] [id number] [place] [address] Aug, [facility] [place] [facility] [address] [id number] [place] [address] Aug, [facility] [place] [facility] [address] [id number] [place] [address] Aug, [facility] [place] [facility] [address] [id number] [place] [address] Aug, [facility] [place] [facility] [address] [id number] [place] [address] Aug, [facility] [place] [facility] [address] [id number] [place] [address] Aug, [facility] [place] [facility] [address] [id number] [place] [address] Aug, [facility] [place] [facility] [address] [id number] [place] [address] Jul, [facility] [place] [facility] [address] [id number] [place] [address] Jun, [facility] [place] [facility] [address] [id number] [place] [address] May, [facility] [place] [facility] [address] [id number] [place] [address] May, [facility] [place] [facility] [address] [id number] [place] [address] May, [facility] [place] [facility] [address] [id number] [place] [address] Apr, [facility] [place] [facility] [address] [id number] [place] [address] Mar, [facility] [address] [id number] [place] [address] February, [facility] [place] [facility] [address] [id number] [place] [address] Oct, [facility] [place] [facility] [address] [id number] [place] [address] Oct, [facility] [place] [facility] [address] [id number] [place] [address] Oct, [facility] [place] [facility] [address] [id number] [place] [address] Oct, [facility] [place] [facility] [address] [id number] [place] [address] Oct, [facility] [place] [facility] [address] [id number] [place] [address] Oct, [facility] [place] [facility] [address] [id number], [place] [address] Sep, [facility] [place] [facility] [address] [id number], [place] [address] Sep, [facility] [place] [facility] [address] [id number], [place] [address] Aug, [facility] [place] [facility] [address] [id number], [place] [address] Aug, [facility] [place] [facility] [address] [id number], [place] [address] Jul, [facility] [place] [facility] [address] [id number] [place] [address] Jul, [facility] [place] [facility] [address] [id number], [place] [address] Jul, [facility] [place] [facility] [address] [id number], [place] [address] Jul, [facility] [place] [facility] [address] [id number] [place] [address] Jul, [facility] [place] [facility] [address] [id number] [place] [address] Jul, [facility] [place] [facility] [address] [id number] [place] [address] Jul, [facility] [place] [facility] [address] [id number] [place] [address] Jul, [facility] [place] [facility] [address] [id number] [place] [address] 16 Jun, 2012 [facility] [place] [facility] [address] [id number] [place] [address] Jun, [facility] [place] [facility] [address] [id number] [place] [address] May, [facility] [place] [facility] [address] [id number] [place] [address] Apr, [facility] [place] [facility] [address] [id number] [place] [address] Mar, [facility] [place] [facility] [address] [id number] [place] [address] Mar, [facility] [place] [facility] [address] [facility] [id number] [place] [address] Mar, [facility] [place] [facility] [address] [id number] [place] [address] Mar, [facility] [place] [facility] [address] [facility] [id number] [place] [address] Jan, [facility] [place] [facility] [address] [id number] [place] [address] Nov, [facility] [place] [facility] [address] [facility] [id number] [place] [address] Nov, [facility] [place] [facility] [address] [facility] [id number] [place] [address] Nov, [facility] [place] [id number] [address] Oct, [facility] [place] [id number] [place] [address] Sep, [facility] [place] [id number] [place] [address] Sep, [facility] [place] [id number] [place] [address] Aug, [facility] [place] [id number] [place] [address] Aug, [facility] [place] [id number] [place] [address] Aug, [facility] [place] [id number] [place] [address] Aug, [facility] [place] [id number] [place] [address] Jul, [facility] [place] [id number] [place] [address] May, [facility] [place] [id number] [place] [address] Jan, [facility] [place] [id number] [place] [address] Nov, [facility] [place] [id number] [address] Apr, [facility] [place] [id number] [place] [address] Dec, [facility] [place] [id number] [address] Nov, IMMUNIZATIONS No Known Immunizations SOCIAL HISTORY Never Assessed REASON FOR VISIT EMR-[facility] [place] PLAN OF CARE VITAL SIGNS MEDICATIONS Unknown Medications RESULTS No Results PROCEDURES No Known procedures INSTRUCTIONS MEDICATIONS ADMINISTERED No Known Medications MEDICAL (GENERAL) HISTORY Type Description Date Medical History Cardiovascular vrqyubts-ZPQ-Tyzuybom, non-obstructive per [facility] (01/2011) Dr. Mendoza Medical History Stress test 03/07/13-Dr. Kelly Dietrich normal Medical History Hypertension Medical History Asthma Medical History Gastrointestinal Disorder--IBS, GERD, Hx of fatty liver Medical History Hernia 1979 Medical History Cervical dysplasia 02/16-Pap LGSIL/[place]-mild dysplasia Medical History Hyperlipidemia Medical History Rheumatoid arthritis ([place]) in remission 11/27/14 pain she has probably [...] injury 07/10/15-07/11/2015 Hospitalization History Symptomatic Hypokalemia/Nause-[facility] 05/13/16 Hospitalization History Stroke 05/03/2017 Hospitalization History stroke 08/24/2017--09/01/2017
--- OUTSIDE RECORDS SUMMARY | 2019-05-22 07:34 | XMS REPORT ---
Author Author Migration, Doctor Organization [facility] Address Unknown Phone Unavailable Care Team Providers Care Wellness Instructor Name Role Phone Migration, Doctor Unavailable Unavailable PROBLEMS Type Condition ICD9-CM Code UCR80-RH Code Onset Dates Condition Status SNOMED Code Problem Hemiparesis of left nondominant side as late effect of cerebral infarction I69.354 Active 479024926 Problem Generalized anxiety disorder F41.1 Active 18570335 Problem Morbid (severe) obesity due to excess calories E66.01 Active 821747913 Problem Chronic pain syndrome G89.4 Active 224261682 Problem ADHD (attention deficit hyperactivity disorder), combined type F90.2 Active 03919033 Problem Asthma J45.909 Active 644372225 Problem Rheumatoid arthritis M06.9 Active 59811355 Problem Anxiety F41.9 Active 51631597 Problem Gastroesophageal reflux disease with esophagitis K21.0 Active 066814861 Problem Neuropathy G62.9 Active 192179610 Problem Hyperinsulinemia E16.1 Active 92831599 Problem Obstructive sleep apnea G47.33 Active 10504866 Problem Other insomnia G47.09 Active 921315598 Problem Cerebrovascular accident (CVA), unspecified mechanism I63.9 Active 417594165 Problem 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 remote computer terminal operator (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 Z79.899 Active 845021994 Problem Sleep apnea in adult G47.30 Active 58158853 Problem Dysthymic disorder F34.1 Active 36194824 Problem Irritable bowel syndrome with diarrhea K58.0 Active 925244565 Problem Panic attacks F41.0 Active 767567877 Problem Mild episode of recurrent major depressive disorder F33.0 Active 503693532 Problem Chronic obstructive pulmonary disease J44.9 Active 29079622 Problem Arteriosclerotic coronary artery disease I25.10 Active 86608360 Problem Hemiplegia affecting left nondominant side G81.94 Active Problem Hypertension I10 Active 02834040 Problem Mixed hyperlipidemia E78.2 Active 676713108 Problem Seasonal allergies J30.2 Active 734401512 Problem Primary insomnia F51.01 Active 6147557 Problem Paroxysmal atrial fibrillation I48.0 Active 652270982 Problem Unsteady gait R26.81 Active 60626495 ALLERGIES No Information ENCOUNTERS Encounter Location Date Diagnosis [facility] [id number] [place] [address] February, [facility] [id number] [place] [address] 15 Jan, 2019 Other insomnia G47.09 ; Hypertension I10 ; Rheumatoid arthritis M06.9 ; Mild episode of recurrent major depressive disorder F33.0 ; Breast cancer screening Z12.39 ; Arteriosclerotic coronary artery disease I25.10 ; Morbid (severe) obesity due to excess calories E66.01 and Hemiparesis of left nondominant side as late effect of cerebral infarction I69.354 [facility] [id number] [place] [address] 08 Jan, 2019 Asthma J45.909 and Other insomnia G47.[address] [address] Jan, [facility] [id number] [place] [address] Dec, Generalized anxiety disorder F41.1 and Mild episode of recurrent major depressive disorder F33.0 [facility] [id number] [place] [address] Dec, [facility] [id number] [place] [address] Dec, [facility] [id number] [place] [address] Dec, [facility] [id number] [place] [id number] Nov, Viral upper respiratory tract infection J06.9 [facility] [id number] [place] [address] Nov, [place] [address] [address] Oct, [facility] [address] [address] Sep, [facility] [id number] [place] [address] Sep, [facility] [id number] [place] [address] Sep, [facility] [id number] [place] [address] Sep, Orthostatic hypotension I95.1 ; Shortness of breath R06.02 ; Right foot pain M79.671 and Morbid (severe) obesity due to excess calories E66.01 [facility] [id number] [place] [address] Aug, [facility] [id number] [place] [address] Aug, [facility] [id number] [place] [address] Aug, [facility] [id number] [place] [address] Aug, [facility] [id number] [place] [address] Aug, [facility] [address] [address] Jul, [facility] [id number] [place] [address] Jul, [facility] [id number] [address] Jul, [facility] [id number] [place] [address] Jul, [facility] [address] [address] Jul, [facility] [address] [address] Jul, [facility] [address] [place] [id number] Jul, Hemiplegia affecting left nondominant side G81.94 ; Chronic obstructive pulmonary disease J44.9 and Weakness R53.1 [facility] [address] [place] [address] Jul, [facility] [address] [place] [id number] Jul, Weakness R53.1 ; Paroxysmal atrial fibrillation I48.0 and Unsteady gait R26.81 [facility] [id number] [place] [address] Jul, Tobacco abuse Z72.0 [facility] [address] [place] [id number] Jun, History of acute respiratory failure Z87.09 ; Weight gain R63.5 and Tobacco abuse Z72.0 [facility] [id number] [place] [address] Jun, [facility] [id number] [place] [address] May, Primary insomnia F51.01 [facility] [address] [place] [address] May, Mild episode of recurrent major depressive disorder F33.0 [facility] [address] [place] [address] May, [facility] [address] [place] [address] May, Chronic obstructive pulmonary disease, unspecified COPD type J44.9 ; Primary insomnia F51.01 ; Fatigue, unspecified type R53.83 and Weight gain R63.5 [facility] [address], [place] [address] May, Thrush B37.0 [facility] [id number] [place] [address] May, Mild episode of recurrent major depressive disorder F33.0 and Generalized anxiety disorder F41.1 [facility] [id number] [place] [address] May, Thrush B37.0 [facility] [id number] [place] [address] Apr, Cough R05 [facility] [id number] [place] [address] Mar, Mild episode of recurrent major depressive disorder F33.0 [facility] [address] [address] Mar, Mild episode of recurrent major depressive disorder F33.0 and Generalized anxiety disorder F41.1 [facility] [id number] [place] [address] Mar, Seasonal allergies J30.2 [facility] [place] [id number] [place] [address] Mar, Seasonal allergies J30.2 [facility] [id number] [place] [address] February, Generalized anxiety disorder F41.1 [facility] [id number] [place] [address] February, Cough R05 and Seasonal allergies J30.2 [facility] [id number] [place] [address] February, Generalized anxiety disorder F41.1 and Mild episode of recurrent major depressive disorder F33.0 [facility] [id number] [place] [address] February, Other remote computer terminal operator (current) drug therapy Z79.899 ; Anxiety F41.9 ; Panic attacks F41.0 and Irritable bowel syndrome with diarrhea K58.0 [place] [address] [place] [address] February, [facility] [id number] [place] [address] Jan, Mixed hyperlipidemia E78.2 [facility] [id number] [place] [address], [place] [address] Jan, [facility] [id number] [place] [address] Jan, [facility] [id number] [place] [address], [place] [address] Jan, [facility] [id number] [place] [address], [place] [address] Jan, [facility] [id number] [place] [address] Dec, [facility] [id number] [place] [address] Dec, [facility] [id number] [place] [address] Dec, [facility] [id number] [place] [address] Nov, Dysthymic disorder F34.1 [facility] [id number] [place] [address] Oct, [facility] [id number] [place] [address] Oct, [facility] [id number] [place] [address] Oct, [facility] [id number] [place] [address] Oct, Diarrhea, unspecified type R19.7 and Dysuria R30.0 [facility] [id number] [place] [address] Oct, [facility] [address], [place] [address] Sep, [facility] [id number] [place] [address] Sep, [facility] [id number] [place] [address] Sep, Anxiety F41.9 [facility] [id number] [place] [address] Sep, Cerebrovascular accident (CVA), unspecified mechanism I63.9 ; Mixed hyperlipidemia E78.2 ; Gastroesophageal reflux disease with esophagitis K21.0 and Anxiety F41.9 [facility] [place] [id number] [place] [address] Sep, [facility] [id number] [place] [address] Aug, Chronic obstructive pulmonary disease, unspecified J44.9 ; Asthma J45.909 ; Nausea R11.0 ; Dysthymic disorder F34.1 ; Cerebrovascular accident (CVA), unspecified mechanism I63.9 and Rheumatoid arthritis M06.9 [place] [id number] [place] [address] Aug, Nausea R11.0 ; Encounter for immunization Z23 ; Sleep apnea in adult G47.30 ; Rheumatoid arthritis involving multiple sites, unspecified rheumatoid factor presence M06.9 ; Generalized anxiety disorder F41.1 ; Dysthymic disorder F34.1 and Asthma J45.909 [facility] [address] [place] [address] Jul, [facility] [id number] [place] [address] May, ADHD (attention deficit hyperactivity disorder), combined type F90.2 ; Generalized anxiety disorder F41.1 and Persistent depressive disorder F34.1 [facility] [id number] [place] [address] May, Cerebrovascular accident (CVA), unspecified mechanism I63.9 [place] [address] [address] Apr, Mixed hyperlipidemia E78.2 and Cerebrovascular accident (CVA), unspecified mechanism I63.9 [facility] [address] [address] Apr, Generalized anxiety disorder F41.1 [facility] [address] [address] Apr, Bronchitis J40 and Tobacco use Z72.0 [facility] [address] [address] Apr, Mixed hyperlipidemia E78.2 [facility] [address] [address] Apr, Other half-way (current) drug therapy Z79.899 [place] [address] [address] Apr, [facility] [address] [address] Apr, Generalized anxiety disorder F41.1 [facility] [address] [address] Apr, Obstructive sleep apnea G47.33 and Hyperinsulinemia E16.1 [facility] [address] [address] Apr, ADHD (attention deficit hyperactivity disorder), combined type F90.2 ; Generalized anxiety disorder F41.1 and Persistent depressive disorder F34.1 [facility] [place] [address] [address] Mar, [place] [place] [address] [address] Mar, Generalized anxiety disorder F41.1 [facility] [place] [address] [address] Mar, Tarsal tunnel syndrome of both lower extremities G57.53 [place] [id number] [place] [address] February, [facility] [id number] [place] [address] February, [facility] [id number] [place] [address] February, Asthma J45.909 [facility] [place] [id number] [place] [address] February, Generalized anxiety disorder F41.1 [facility] [id number] [place] [address] February, Hypoxemia R09.02 ; Hyperglycemia R73.9 ; Rheumatoid arthritis M06.9 and Generalized anxiety disorder F41.1 [facility] [id number] [place] [address] February, [facility] [place] [id number] [place] [address] Jan, Chronic obstructive pulmonary disease, unspecified J44.9 [facility] [id number] [place] [address] Jan, Chronic pain syndrome G89.4 [facility] [id number] [place] [address] Jan, Hypoxemia R09.02 [facility] [place] [id number] [place] [address] Jan, [facility] [id number] [place] [address] Jan, Chronic obstructive pulmonary disease, unspecified J44.9 ; Hypoxemia R09.02 ; Other insomnia G47.09 and Left anterior shoulder pain M25.512 [facility] [place] [id number] [place] [address] Jan, Numbness in feet R20.0 and Neuropathy G62.9 [facility] [id number] [place] [address] Jan, [facility] [id number] [place] [address] Dec, Acute pain of left shoulder M25.512 [facility] [id number] [place] [address] Dec, Acute pain of left shoulder M25.512 [facility] [id number] [place] [address] Dec, Generalized anxiety disorder F41.1 [facility] [id number] [place] [address] Dec, Generalized anxiety disorder F41.1 [facility] [id number] [place] [address] Nov, ADHD (attention deficit hyperactivity disorder), combined type F90.2 ; Generalized anxiety disorder F41.1 and Persistent depressive disorder F34.1 [facility] [id number] [place] [address] Nov, Acute pain of left shoulder M25.512 [facility] [address] [place] [address] Nov, ADHD (attention deficit hyperactivity disorder), combined type F90.2 ; Generalized anxiety disorder F41.1 and Persistent depressive disorder F34.1 [facility] [address] [place] [address] Nov, Chronic pain syndrome G89.4 [facility] [id number] [place] [address] 13 Nov, 2016 Chronic pain syndrome G89.4 [facility] [address] [place] [address] 08 Nov, 2016 Acute pain of left shoulder M25.512 [place] [address] [place] [address] Nov, Generalized anxiety disorder F41.1 [facility] [id number] [place] [address] Nov, Acute pain of left shoulder M25.512 [place] [place] [id number] [place] [address] Nov, ADHD (attention deficit hyperactivity disorder), combined type F90.2 ; Generalized anxiety disorder F41.1 and Persistent depressive disorder F34.1 [facility] [id number] [place] [address] Nov, Acute pain of left shoulder M25.512 ; Generalized anxiety disorder F41.1 ; Chronic pain syndrome G89.4 ; Hyperinsulinemia E16.1 ; Pain of left foot M79.672 and Pain in right foot M79.671 [place] [place] [id number] [place] [address] Oct, ADHD (attention deficit hyperactivity disorder), combined type F90.2 ; Generalized anxiety disorder F41.1 and Dysthymic disorder F34.1 [place] [place] [address] [place] [address] Sep, [place] [address] [place] [address] Sep, [facility] [id number] [place] [address] Sep, Routine gynecological examination V72.31 ; Cervical cancer screening Z12.4 ; Breast cancer screening Z12.39 ; Colon cancer screening Z12.11 ; Hypokalemia E87.6 ; Herpes simplex type 1 infection B00.9 and Abscess of right axilla L02.411 [place] [address] [place] [address] Sep, [place] [place] [id number] [place] [address] Sep, ADHD (attention deficit hyperactivity disorder), combined type F90.2 ; Generalized anxiety disorder F41.1 and Dysthymic disorder F34.1 [place] [id number] [place] [address] Aug, [facility] [id number] [place] [address] Aug, [place] [address] [address] Aug, Generalized anxiety disorder F41.1 [place] [id number] [place] [address] Aug, ADHD (attention deficit hyperactivity disorder), combined type F90.2 ; Generalized anxiety disorder F41.1 and Dysthymic disorder F34.1 [place] [address] [address] Jul, Chronic pain syndrome G89.4 ; Hypertension I10 ; Hypokalemia E87.6 ; Asthma J45.909 and Nausea R11.0 [place] [id number] [place] [address] Jul, [place] [id number] [place] [address] Jul, Asthma J45.909 [place] [id number] [place] [address] Jul, ADHD (attention deficit hyperactivity disorder), combined type F90.2 ; Generalized anxiety disorder F41.1 and Dysthymic disorder F34.1 [place] [id number] [place] [address] Jul, [place] [place] [id number] [place] [address] Jul, Hypertension I10 ; Arteriosclerotic coronary artery disease I25.10 ; Mixed hyperlipidemia E78.2 ; Other half-way (current) drug therapy Z79.899 and Hyperglycemia R73.9 [place] [id number] [place] [address] 16 Jun, 2016 Hypokalemia E87.6 and Hyperglycemia R73.9 [place] [id number] [place] [address] 14 Jun, 2016 [place] [address] [address] 13 Jun, 2016 Abnormal kidney function N28.9 [place] [address] [address] Jun, [place] [address] [address] Jun, ADHD (attention deficit hyperactivity disorder), combined type F90.2 ; Generalized anxiety disorder F41.1 and Dysthymic disorder F34.1 [place] [address] [address] Jun, Generalized anxiety disorder F41.1 and Dysthymic disorder F34.1 [place] [id number] Jun, Hypokalemia E87.6 [place] [address] [address] May, Hypokalemia E87.6 ; Vertigo R42 and Hyperinsulinemia E16.1 [place] [id number] [place] [address] May, [place] [address] [address] May, Abnormal kidney function N28.9 ; Hyperinsulinemia E16.1 and Nausea R11.0 [place] [address] [address] May, Hypokalemia E87.6 ; Nausea R11.0 ; Epigastric pain R10.13 ; Dehydration E86.0 ; Diaphoresis R61 and Right arm pain M79.601 [place] [id number] [place] [address] May, [place] [id number] [place] [address] May, Hypokalemia E87.6 [place] [address] [address] May, Hypokalemia E87.6 [place] [id number] [place] [address] Apr, [place] [address] [address] Apr, ADHD (attention deficit hyperactivity disorder), combined type F90.2 ; Generalized anxiety disorder F41.1 and Dysthymic disorder F34.1 [place] [address] [address] Apr, Right arm pain M79.601 and Hyperinsulinemia E16.1 [place] [address] [address] Mar, [place] [address] [address] Mar, [place] [id number] [place] [address] Mar, Hyperinsulinemia E16.1 ; Hyperlipidemia, unspecified hyperlipidemia type E78.5 ; Central venous catheter in place Z78.9 ; Generalized anxiety disorder F41.1 and Urinary tract infection, site not specified N39.0 [place] [address] [address] Mar, ADHD (attention deficit hyperactivity disorder), combined type F90.2 ; Generalized anxiety disorder F41.1 and Dysthymic disorder F34.1 [place] [address] [address] February, ADHD (attention deficit hyperactivity disorder), combined type F90.2 ; Generalized anxiety disorder F41.1 and Dysthymic disorder F34.1 [place] [address] [address] [place] [id number] [place] [phone] February, [place] [address] [place] [id number] [place] [phone] February, [place] [address] [place] [id number] [place] [phone] February, Hypertension I10 and Weight gain R63.5 [place] [address] [place] [id number] [place] [phone] February, Major depressive disorder, recurrent, moderate F33.1 and Generalized anxiety disorder F41.1 [place] [address] [place] [id number] [place] [phone] February, ADHD (attention deficit hyperactivity disorder), combined type F90.2 ; Generalized anxiety disorder F41.1 and Dysthymic disorder F34.1 [place] [id number] [place] [address] February, [place] [id number] [place] [address] February, Asthma J45.909 ; Weight gain R63.5 ; Hypertension I10 ; Rheumatoid arthritis M06.9 and Chronic pain syndrome G89.4 [place] [id number] [place] [address] Jan, ADHD (attention deficit hyperactivity disorder), combined type F90.2 ; Generalized anxiety disorder F41.1 and Dysthymic disorder F34.1 [place] [id number] [place] [address] Dec, ADHD (attention deficit hyperactivity disorder), combined type F90.2 ; Generalized anxiety disorder F41.1 and Dysthymic disorder F34.1 [place] [id number] [place] [address] Dec, [facility] [id number] [address] Nov, [facility] [id number], [place] [address] Nov, [facility] [id number] [address] Nov, [facility] [id number], [place] [address] Nov, [facility] [id number] [address] Oct, [facility] [id number], [place] [address] Oct, [facility] [id number], [place] [address] Oct, [facility] [id number], [place] [address] Sep, [facility] [id number], [place] [address] Sep, [facility] [id number], [place] [address] Sep, Agoraphobia with panic disorder F40.01 ; Attention-deficit hyperactivity disorder, combined type F90.2 and Dysthymic disorder F34.1 [facility] [id number], [place] [address] Aug, [facility] [id number], [place] [address] Aug, [facility] [id number], [place] [address] Aug, [facility] [id number], [place] [address] Aug, Dysthymic disorder F34.1 ; Generalized anxiety disorder F41.1 and ADHD (attention deficit hyperactivity disorder), combined type F90.2 [facility] [id number] [place] [address] Aug, ADHD (attention deficit hyperactivity disorder), combined type F90.2 ; Generalized anxiety disorder F41.1 and Dysthymic disorder F34.1 [facility] [id number] [place] [address] Jul, Urinary tract infection, site not specified N39.0 ; Hypotension, unspecified I95.9 and Breast cancer screening Z12.39 [place] [id number] [place] [address] Jul, [facility] [id number] [place] [address] Jul, [facility] [id number] [place] [address] Jul, Urinary tract infection, site not specified N39.0 ; Nausea R11.0 ; Gastroenteritis K52.9 ; Renal failure N19 and Other hypotension I95.89 [facility] [id number] [place] [address] Jul, [facility] [id number] [place] [address] Jul, [facility] [id number] [place] [address] Jul, [facility] [id number] [place] [address] Jun, [facility] [id number] [place] [address] Jun, Major depression in partial remission 296.25 ; Generalized anxiety disorder 300.02 and ADHD, predominantly inattentive type 314.01 [facility] [id number] [place] [address] May, [facility] [id number], [place] [address] Apr, Major depressive disorder, recurrent episode, severe, without mention of psychotic behavior 296.33 ; Agoraphobia with panic disorder 300.21 and Generalized anxiety disorder 300.02 [place] [id number] [place] [address] Apr, ADHD (attention deficit hyperactivity disorder), combined type 314.01 ; Generalized anxiety disorder 300.02 and Dysthymic disorder 300.4 [place] [id number] [place] [address] Apr, CAD (coronary artery disease) 414.00 ; HTN (hypertension) 401.9 and Tobacco use 305.1 [place] [id number] [place] [address] Apr, [place] [id number] [place] [address] Mar, ADHD (attention deficit hyperactivity disorder), combined type 314.01 ; Generalized anxiety disorder 300.02 ; Dysthymic disorder 300.4 ; No condition on [place] V71.09 ; Rheumatoid arthritis 714.0 ; Incontinence 788.30 ; Irritable bowel syndrome 564.1 ; Osteoporosis 733.00 and Chronic pain 338.29 [address] [address] Mar, Agoraphobia with panic disorder 300.21 and Major depressive disorder, recurrent episode, moderate 296.32 [place] [id number] [place] [address] Mar, [place] [id number] [place] [address] February, [place] [id number] [place] [address] February, Agoraphobia with panic disorder 300.21 and Major depressive disorder, recurrent episode, moderate 296.32 [place] [id number] [place] [address] February, [facility] [place] [facility] [address] [id number] [place] [address] Jan, [facility] [place] [facility] [address] [id number] [place] [address] Jan, [facility] [place] [facility] [address] [id number] [place] [address] Dec, [facility] [place] [facility] [address] [id number] [place] [address] Dec, [facility] [place] [facility] [address] [id number] [place] [address] Dec, [facility] [place] [facility] [address] [facility] [id number] [place] [address] Dec, [facility] [place] [facility] [address] [facility] [id number] [place] [address] Dec, [facility] [place] [facility] [address] [facility] [id number] [place] [address] Dec, [facility] [place] [facility] [address] [facility] [id number] [place] [address] Nov, [facility] [place] [facility] [address] [facility] [id number] [place] [address] Nov, [facility] [place] [facility] [address] [facility] [id number] [place] [address] Nov, [facility] [place] [facility] [address] [facility] [id number] [place] [address] Nov, [facility] [place] [facility] [address] [id number] [place] [address] Nov, [facility] [place] [facility] [address] [facility] [id number] [place] [address] 17 Nov, 2014 [facility] [place] [facility] [address] [facility] [id number] [place] [address] Nov, [facility] [place] [facility] [address] [id number] [place] [address] Nov, [facility] [place] [facility] [address] [id number] [place] [address] Oct, [facility] [place] [facility] [address] [facility] [id number] [place] [address] Oct, [facility] [place] [facility] [address] [id number] [place] [address] Oct, [facility] [place] [facility] [address] [id number] [place] [address] Oct, [facility] [place] [facility] [address] [facility] [id number] [place] [address] Oct, [facility] [place] [facility] [address] [facility] [id number] [place] [address] Oct, [facility] [place] [facility] [address] [id number] [place] [address] Sep, [facility] [place] [facility] [address] [id number] [place] [address] Sep, [facility] [place] [facility] [address] [id number] [place] [address] Sep, [facility] [place] [facility] [address] [id number], [place] [address] Sep, [facility] [place] [facility] [address] [id number], [place] [address] Sep, [facility] [place] [facility] [address] [id number] [place] [address] Sep, [facility] [place] [facility] [address] [facility] [id number] [place] [address] Sep, [facility] [place] [facility] [address] [id number] [place] [address] Aug, [facility] [place] [facility] [address] [id number] [place] [address] Aug, [facility] [place] [facility] [address] [id number] [place] [address] Aug, [facility] [place] [facility] [address] [id number] [place] [address] Aug, [facility] [place] [facility] [address] [id number] [place] [address] Aug, [facility] [place] [facility] [address] [id number] [place] [address] Aug, [facility] [place] [facility] [address] [id number] [place] [address] Jul, [facility] [place] [facility] [address] [id number] [place] [address] Jul, [facility] [place] [facility] [address] [id number] [place] [address] Jul, [facility] [place] [facility] [address] [id number] [place] [address] Jul, [facility] [place] [facility] [address] [id number] [place] [address] Jul, [facility] [place] [facility] [address] [facility] [id number] [place] [address] Jul, [facility] [place] [facility] [address] [id number] [place] [address] Jun, [facility] [place] [facility] [address] [id number] [place] [address] Jun, [facility] [place] [facility] [address] [id number] [place] [address] May, [facility] [place] [facility] [address] [id number] [place] [address] May, [facility] [place] [facility] [address] [id number] [place] [address] Apr, [facility] [place] [facility] [address] [id number] [place] [address] Apr, [facility] [place] [facility] [address] [id number] [place] [address] Apr, [facility] [place] [facility] [address] [id number] [place] [address] Apr, [facility] [place] [facility] [address] [id number] [place] [address] Mar, [facility] [place] [facility] [address] [id number] [place] [address] Mar, [facility] [place] [facility] [address] [id number] [place] [address] Mar, [facility] [place] [facility] [address] [id number] [place] [address] Mar, [facility] [place] [facility] [address] [id number] [place] [address] February, [facility] [place] [facility] [address] [id number] [place] [address] February, [facility] [place] [facility] [address] [id number] [place] [address] February, [facility] [place] [facility] [address] [id number] [place] [address] February, [facility] [place] [facility] [address] [id number] [place] [address] February, [facility] [place] [facility] [address] [id number] [place] [address] February, [facility] [place] [facility] [address] [id number] [place] [address] Jan, [facility] [place] [facility] [address] [id number] [place] [address] Jan, [facility] [place] [facility] [address] [id number], [place] [address] Dec, [facility] [address] [id number] [place] [address] Dec, [facility] [place] [facility] [address] [id number] [place] [address] Nov, [facility] [place] [facility] [address] [id number] [place] [address] Nov, [facility] [place] [facility] [address] [id number] [place] [address] Oct, [facility] [address] [id number] [place] [address] Oct, [facility] [address] [id number] [place] [address] Oct, [facility] [address] [id number] [place] [address] Oct, [facility] [address] [id number] [place] [address] Sep, [facility] [address] [id number] [place] [address] Sep, [facility] [address] [facility] [id number] [place] [address] Sep, [facility] [place] [facility] [address] [id number] [place] [address] Sep, [facility] [place] [facility] [address] [id number], [place] [address] Sep, [facility] [place] [facility] [address] [id number] [place] [address] Sep, [facility] [place] [facility] [address] [id number] [place] [address] Sep, [facility] [place] [facility] [address] [facility] [id number] [place] [address] Sep, [facility] [place] [facility] [address] [id number] [place] [address] Aug, [facility] [place] [facility] [address] [id number] [place] [address] Aug, [facility] [place] [facility] [address] [id number] [place] [address] Aug, [facility] [place] [facility] [address] [id number] [place] [address] Aug, [facility] [place] [facility] [address] [id number] [place] [address] Aug, [facility] [place] [facility] [address] [id number] [place] [address] Aug, [facility] [place] [facility] [address] [id number] [place] [address] Aug, [facility] [place] [facility] [address] [id number] [place] [address] Aug, [facility] [place] [facility] [address] [id number] [place] [address] Aug, [facility] [place] [facility] [address] [id number] [place] [address] Jul, [facility] [place] [facility] [address] [id number] [place] [address] Jun, [facility] [place] [facility] [address] [id number] [place] [address] May, [facility] [place] [facility] [address] [id number] [place] [address] May, [facility] [place] [facility] [address] [id number] [place] [address] May, [facility] [place] [facility] [address] [id number] [place] [address] Apr, [facility] [place] [facility] [address] [id number] [place] [address] Mar, [facility] [address] [id number] [place] [address] February, [facility] [place] [facility] [address] [id number] [place] [address] Oct, [facility] [place] [facility] [address] [id number] [place] [address] Oct, [facility] [place] [facility] [address] [id number] [place] [address] Oct, [facility] [place] [facility] [address] [id number] [place] [address] Oct, [facility] [place] [facility] [address] [id number] [place] [address] Oct, [facility] [place] [facility] [address] [id number] [place] [address] Oct, [facility] [place] [facility] [address] [id number], [place] [address] Sep, [facility] [place] [facility] [address] [id number], [place] [address] Sep, [facility] [place] [facility] [address] [id number], [place] [address] Aug, [facility] [place] [facility] [address] [id number], [place] [address] Aug, [facility] [place] [facility] [address] [id number], [place] [address] Jul, [facility] [place] [facility] [address] [id number] [place] [address] Jul, [facility] [place] [facility] [address] [id number], [place] [address] Jul, [facility] [place] [facility] [address] [id number], [place] [address] Jul, [facility] [place] [facility] [address] [id number] [place] [address] Jul, [facility] [place] [facility] [address] [id number] [place] [address] Jul, [facility] [place] [facility] [address] [id number] [place] [address] Jul, [facility] [place] [facility] [address] [id number] [place] [address] Jul, [facility] [place] [facility] [address] [id number] [place] [address] 16 Jun, 2012 [facility] [place] [facility] [address] [id number] [place] [address] Jun, [facility] [place] [facility] [address] [id number] [place] [address] May, [facility] [place] [facility] [address] [id number] [place] [address] Apr, [facility] [place] [facility] [address] [id number] [place] [address] Mar, [facility] [place] [facility] [address] [id number] [place] [address] Mar, [facility] [place] [facility] [address] [facility] [id number] [place] [address] Mar, [facility] [place] [facility] [address] [id number] [place] [address] Mar, [facility] [place] [facility] [address] [facility] [id number] [place] [address] Jan, [facility] [place] [facility] [address] [id number] [place] [address] Nov, [facility] [place] [facility] [address] [facility] [id number] [place] [address] Nov, [facility] [place] [facility] [address] [facility] [id number] [place] [address] Nov, [facility] [id number] [address] Oct, [facility] [id number], [place] [address] Sep, [facility] [id number], [place] [address] Sep, [facility] [id number], [place] [address] Aug, [facility] [id number], [place] [address] Aug, [facility] [id number], [place] [address] Aug, [facility] [id number], [place] [address] Aug, [facility] [id number], [place] [address] Jul, [facility] [id number], [place] [address] May, [facility] [id number], [place] [address] Jan, [facility] [id number], [place] [address] Nov, [facility] [id number], [place] [address] Apr, [facility] [id number], [place] [address] Dec, [facility] [id number], [place] [address] Nov, IMMUNIZATIONS No Known Immunizations SOCIAL HISTORY Never Assessed REASON FOR VISIT EMR-[facility] [place] PLAN OF CARE VITAL SIGNS MEDICATIONS Unknown Medications RESULTS No Results PROCEDURES No Known procedures INSTRUCTIONS MEDICATIONS ADMINISTERED No Known Medications MEDICAL (GENERAL) HISTORY Type Description Date Medical History Cardiovascular rbojqhnj-DXA-Bdsrzleq, non-obstructive per [facility] (01/2011) Dr. Mendoza Medical History Stress test 03/07/13-Dr. Kelly Dietrich normal Medical History Hypertension Medical History Asthma Medical History Gastrointestinal Disorder--IBS, GERD, Hx of fatty liver Medical History Hernia 1979 Medical History Cervical dysplasia 02/16-Pap LGSIL/[place]-mild dysplasia Medical History Hyperlipidemia Medical History Rheumatoid arthritis ([place]) in remission 11/27/14 pain she has probably [...] Kidney injury 07/10/15-07/11/2015 Hospitalization History Symptomatic Hypokalemia/Nause-Via [facility] 05/13/16 Hospitalization History Stroke 05/03/2017 Hospitalization History stroke 08/24/2017--09/01/2017
--- OUTSIDE RECORDS SUMMARY | 2019-05-22 07:35 | XMS REPORT ---
Author Author Migration, Doctor Organization [facility] Address Unknown Phone Unavailable Care Team Providers Care Vessel Ordinary Seaman Name Role Phone Migration, Doctor Unavailable Unavailable PROBLEMS Type Condition ICD9-CM Code JRC49-AS Code Onset Dates Condition Status SNOMED Code Problem Morbid (severe) obesity due to excess calories E66.01 Active 148139006 Problem ADHD (attention deficit hyperactivity disorder), combined type F90.2 Active 57736990 Problem Generalized anxiety disorder F41.1 Active 24325881 Problem Rheumatoid arthritis M06.9 Active 98479235 Problem Chronic pain syndrome G89.4 Active 486664321 Problem Hypertension I10 Active 94988747 Problem Asthma J45.909 Active 861303554 Problem Anxiety F41.9 Active 19084022 Problem Gastroesophageal reflux disease with esophagitis K21.0 Active 409783184 Problem Hemiparesis of left nondominant side as late effect of cerebral infarction I69.354 Active 927143995 Problem Other insomnia G47.09 Active 169488966 Problem Neuropathy G62.9 Active 771726014 Problem Other detention (current) drug therapy Z79.899 Active 478304108 Problem Obstructive sleep apnea G47.33 Active 57175921 Problem Dysthymic disorder F34.1 Active 41809111 Problem Cerebrovascular accident (CVA), unspecified mechanism I63.9 Active 576124199 Problem Rheumatoid arthritis involving multiple sites, unspecified rheumatoid factor presence M06.9 Active 467161074 Problem Sleep apnea in adult G47.30 Active 00069855 Problem Irritable bowel syndrome with diarrhea K58.0 Active 226120226 Problem Panic attacks F41.0 Active 991263324 Problem Mild episode of recurrent major depressive disorder F33.0 Active 210201367 Problem Chronic obstructive pulmonary disease J44.9 Active 42681961 Problem Mixed hyperlipidemia E78.2 Active 767554812 Problem Hemiplegia affecting left nondominant side G81.94 Active Problem Arteriosclerotic coronary artery disease I25.10 Active 96289318 Problem Hyperinsulinemia E16.1 Active 79609455 Problem Seasonal allergies J30.2 Active 131400995 Problem Primary insomnia F51.01 Active 3405752 Problem Paroxysmal atrial fibrillation I48.0 Active 935148012 Problem Unsteady gait R26.81 Active 86005150 ALLERGIES No Information ENCOUNTERS Encounter Location Date Diagnosis [facility] [id number] [place] [address] 18 Jan, 2019 [facility] [id number] [place] [address] Jan, [facility] [id number] [place] [address] Jan, Asthma J45.909 and Other insomnia G47.09 [facility] [id number] [place] [address] Jan, [facility] [id number] [place] [address] Dec, Generalized anxiety disorder F41.1 and Mild episode of recurrent major depressive disorder F33.0 [facility] [id number] [place] [address] Dec, [facility] [id number] [place] [address] Dec, [facility] [id number] [place] [address] Dec, [place] [id number] [place] [id number] Nov, Viral upper respiratory tract infection J06.9 [facility] [address] [place] [address] Nov, [facility] [id number] [place] [address] Oct, [facility] [id number] [place] [address] Sep, [facility] [id number] [place] [address] Sep, [facility] [address] [address] Sep, [facility] [id number] [place] [address] Sep, Orthostatic hypotension I95.1 ; Shortness of breath R06.02 ; Right foot pain M79.671 and Morbid (severe) obesity due to excess calories E66.01 [facility] [id number] [place] [address] Aug, [facility] [id number] [place] [address] Aug, [facility] [id number] [place] [address] Aug, [facility] [id number] [place] [address] Aug, [facility] [id number] [place] [address] Aug, [facility] [address] [place] [address] Jul, [facility] [id number] [address] Jul, [facility] [address] [place] [address] Jul, [facility] [id number] [place] [address] Jul, [facility] [address] [address] Jul, [facility] [id number] [place] [address] Jul, [facility] [address] [place] [id number] Jul, Hemiplegia affecting left nondominant side G81.94 ; Chronic obstructive pulmonary disease J44.9 and Weakness R53.1 [place] [id number] [place] [address] Jul, [facility] [address] [place] [id number] Jul, Weakness R53.1 ; Paroxysmal atrial fibrillation I48.0 and Unsteady gait R26.81 [place] [id number] [place] [address] Jul, Tobacco abuse Z72.0 [facility] [address] [place] [id number] Jun, History of acute respiratory failure Z87.09 ; Weight gain R63.5 and Tobacco abuse Z72.0 [place] [id number] [place] [address] Jun, [place] [id number] [place] [address] May, Primary insomnia F51.01 [place] [id number] [place] [address] May, Mild episode of recurrent major depressive disorder F33.0 [place] [id number] [place] [address] May, [place] [id number] [place] [address] May, Chronic obstructive pulmonary disease, unspecified COPD type J44.9 ; Primary insomnia F51.01 ; Fatigue, unspecified type R53.83 and Weight gain R63.5 [place] [address] [place] [address] May, Thrush B37.0 [place] [id number] [place] [address] May, Mild episode of recurrent major depressive disorder F33.0 and Generalized anxiety disorder F41.1 [place] [id number] [place] [address] May, Thrush B37.0 [facility] [id number] [place] [address] Apr, Cough R05 [facility] [id number] [place] [address] Mar, Mild episode of recurrent major depressive disorder F33.0 [facility] [address] [address] Mar, Mild episode of recurrent major depressive disorder F33.0 and Generalized anxiety disorder F41.1 [place] [address] [address] Mar, Seasonal allergies J30.2 [place] [id number] [place] [address] Mar, Seasonal allergies J30.2 [place] [address] [address] February, Generalized anxiety disorder F41.1 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 [address] Jan, [facility] [id number] [place] [address], [place] [address] Jan, [facility] [id number] [place] [address] Jan, [facility] [id number] [place] [address], [place] [address] Jan, [facility] [id number] [place] [address], [place] [address] Dec, [facility] [id number] [place] [address], [place] [address] Dec, [facility] [id number] [place] [address] Dec, [facility] [id number] [place] [address] Nov, Dysthymic disorder F34.1 [facility] [address] [address] Oct, [facility] [address] [address] Oct, [facility] [address] [address] Oct, [facility] [address] [address] Oct, Diarrhea, unspecified type R19.7 and Dysuria R30.0 [facility] [address] [address] Oct, [facility] [address] [address] Sep, [facility] [address] [address] Sep, [place] [id number] [place] [address] Sep, Anxiety F41.9 [place] [id number] [place] [address] Sep, Cerebrovascular accident (CVA), unspecified mechanism I63.9 ; Mixed hyperlipidemia E78.2 ; Gastroesophageal reflux disease with esophagitis K21.0 and Anxiety F41.9 [place] [id number] [place] [address] Sep, [place] [id number] [place] [address] Aug, Chronic obstructive pulmonary disease, unspecified J44.9 ; Asthma J45.909 ; Nausea R11.0 ; Dysthymic disorder F34.1 ; Cerebrovascular accident (CVA), unspecified mechanism I63.9 and Rheumatoid arthritis M06.9 [place] [id number] [place] [address] Aug, Nausea R11.0 ; Encounter for immunization Z23 ; Sleep apnea in adult G47.30 ; Rheumatoid arthritis involving multiple sites, unspecified rheumatoid factor presence M06.9 ; Generalized anxiety disorder F41.1 ; Dysthymic disorder F34.1 and Asthma J45.909 [address] [place] [address] Jul, [place] [id number] [place] [address] May, ADHD (attention deficit hyperactivity disorder), combined type F90.2 ; Generalized anxiety disorder F41.1 and Persistent depressive disorder F34.1 [id number] [place] [address] May, Cerebrovascular accident (CVA), unspecified mechanism I63.9 [address] [id number] [place] [address] Apr, Mixed hyperlipidemia E78.2 and Cerebrovascular accident (CVA), unspecified mechanism I63.9 [place] [id number] [place] [address] Apr, Generalized anxiety disorder F41.1 [place] [address] [address] Apr, Bronchitis J40 and Tobacco use Z72.0 [place] [address] [address] Apr, Mixed hyperlipidemia E78.2 [place] [address] [address] Apr, Other detention (current) drug therapy Z79.899 [place] [address] [address] Apr, [place] [address] [address] Apr, Generalized anxiety disorder F41.1 [place] [address] [address] Apr, Obstructive sleep apnea G47.33 and Hyperinsulinemia E16.[address] [address] Apr, ADHD (attention deficit hyperactivity disorder), combined type F90.2 ; Generalized anxiety disorder F41.1 and Persistent depressive disorder F34.1 [place] [id number] [place] [address] Mar, [place] [id number] [place] [address] Mar, Generalized anxiety disorder F41.1 [place] [address] [address] Mar, Tarsal tunnel syndrome of both lower extremities G57.53 [place] [id number] [place] [address] February, [place] [id number] [place] [address] February, [facility] [id number] [place] [address] February, Asthma J45.909 [facility] [id number] [place] [address] February, Generalized anxiety disorder F41.1 [place] [id number] [place] [address] February, Hypoxemia R09.02 ; Hyperglycemia R73.9 ; Rheumatoid arthritis M06.9 and Generalized anxiety disorder F41.1 [place] [id number] [place] [address] February, [place] [id number] [place] [address] Jan, Chronic obstructive pulmonary disease, unspecified J44.9 [place] [id number] [place] [address] Jan, Chronic pain syndrome G89.4 [place] [id number] [place] [address] Jan, Hypoxemia R09.02 [place] [id number] [place] [address] Jan, [place] [id number] [place] [address] Jan, Chronic obstructive pulmonary disease, unspecified J44.9 ; Hypoxemia R09.02 ; Other insomnia G47.09 and Left anterior shoulder pain M25.512 [place] [id number] [place] [address] Jan, Numbness in feet R20.0 and Neuropathy G62.9 [place] [id number] [place] [address] Jan, [place] [id number] [place] [address] Dec, Acute pain of left shoulder M25.512 [facility] [id number] [place] [address] Dec, Acute pain of left shoulder M25.512 [facility] [id number] [place] [address] Dec, Generalized anxiety disorder F41.1 [facility] [id number] [place] [address] Dec, Generalized anxiety disorder F41.1 [facility] [id number] [place] [address] Nov, ADHD (attention deficit hyperactivity disorder), combined type F90.2 ; Generalized anxiety disorder F41.1 and Persistent depressive disorder F34.1 [facility] [id number] [place] [address] Nov, Acute pain of left shoulder M25.512 [facility] [id number] [place] [address] Nov, ADHD (attention deficit hyperactivity disorder), combined type F90.2 ; Generalized anxiety disorder F41.1 and Persistent depressive disorder F34.1 [facility] [id number] [place] [address] Nov, Chronic pain syndrome G89.4 [facility] [id number] [place] [address] Nov, Chronic pain syndrome G89.4 [facility] [id number] [place] [address] 08 Nov, 2016 Acute pain of left shoulder M25.512 [facility] [id number] [place] [address] 07 Nov, 2016 Generalized anxiety disorder F41.1 [facility] [id number] [place] [address] Nov, Acute pain of left shoulder M25.512 [place] [address] [place] [address] Nov, ADHD (attention deficit hyperactivity disorder), combined type F90.2 ; Generalized anxiety disorder F41.1 and Persistent depressive disorder F34.1 [place] [id number] [place] [address] Nov, Acute pain of left shoulder M25.512 ; Generalized anxiety disorder F41.1 ; Chronic pain syndrome G89.4 ; Hyperinsulinemia E16.1 ; Pain of left foot M79.672 and Pain in right foot M79.671 [place] [id number] [place] [address] Oct, ADHD (attention deficit hyperactivity disorder), combined type F90.2 ; Generalized anxiety disorder F41.1 and Dysthymic disorder F34.1 [place] [id number] [place] [address] Sep, [place] [id number] [place] [address] Sep, [place] [id number] [place] [address] Sep, Routine gynecological examination V72.31 ; Cervical cancer screening Z12.4 ; Breast cancer screening Z12.39 ; Colon cancer screening Z12.11 ; Hypokalemia E87.6 ; Herpes simplex type 1 infection B00.9 and Abscess of right axilla L02.411 [place] [address] [place] [address] Sep, [place] [id number] [place] [address] Sep, ADHD (attention deficit hyperactivity disorder), combined type F90.2 ; Generalized anxiety disorder F41.1 and Dysthymic disorder F34.1 [place] [id number] [place] [address] Aug, [place] [address] [address] Aug, [place] [address] [address] Aug, Generalized anxiety disorder F41.1 [place] [address] [address] Aug, ADHD (attention deficit hyperactivity disorder), combined type F90.2 ; Generalized anxiety disorder F41.1 and Dysthymic disorder F34.1 [place] [address] [address] Jul, Chronic pain syndrome G89.4 ; Hypertension I10 ; Hypokalemia E87.6 ; Asthma J45.909 and Nausea R11.0 [place] [address] [address] Jul, [place] [address] [address] Jul, Asthma J45.909 [place] [address] [address] Jul, ADHD (attention deficit hyperactivity disorder), combined type F90.2 ; Generalized anxiety disorder F41.1 and Dysthymic disorder F34.1 [place] [id number] [place] [address] Jul, [place] [address] [address] Jul, Hypertension I10 ; Arteriosclerotic coronary artery disease I25.10 ; Mixed hyperlipidemia E78.2 ; 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 termite inspector (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.899 and Hyperglycemia R73.9 [place] [id number] [place] [address] Jun, Hypokalemia E87.6 and Hyperglycemia R73.9 [place] [id number] [place] [address] 14 Jun, 2016 [place] [address] [place] [address] Jun, Abnormal kidney function N28.9 [place] [address] [address] Jun, [place] [address] [address] Jun, ADHD (attention deficit hyperactivity disorder), combined type F90.2 ; Generalized anxiety disorder F41.1 and Dysthymic disorder F34.1 [place] [address] [address] Jun, Generalized anxiety disorder F41.1 and Dysthymic disorder F34.1 [place] [address] [address] Jun, Hypokalemia E87.6 [place] [address] [address] May, Hypokalemia E87.6 ; Vertigo R42 and Hyperinsulinemia E16.1 [place] [address] [address] May, [place] [address] [address] May, Abnormal kidney function N28.9 ; Hyperinsulinemia E16.1 and Nausea R11.[address] [address] May, Hypokalemia E87.6 ; Nausea R11.0 ; Epigastric pain R10.13 ; Dehydration E86.0 ; Diaphoresis R61 and Right arm pain M79.601 [place] [address] [address] May, [place] [id number] [place] [address] May, Hypokalemia E87.6 [place] [id number] [place] [address] May, Hypokalemia E87.6 [place] [id number] [place] [address] Apr, [place] [address] [address] Apr, ADHD (attention deficit hyperactivity disorder), combined type F90.2 ; Generalized anxiety disorder F41.1 and Dysthymic disorder F34.1 [place] [address] [address] Apr, Right arm pain M79.601 and Hyperinsulinemia E16.1 [place] [address] [address] Mar, [place] [id number] [place] [address] Mar, [place] [id number] [place] [address] Mar, Hyperinsulinemia E16.1 ; Hyperlipidemia, unspecified hyperlipidemia type E78.5 ; Central venous catheter in place Z78.9 ; Generalized anxiety disorder F41.1 and Urinary tract infection, site not specified N39.0 [place] [id number] [place] [address] Mar, ADHD (attention deficit hyperactivity disorder), combined type F90.2 ; Generalized anxiety disorder F41.1 and Dysthymic disorder F34.1 [place] [id number] [place] [address] February, ADHD (attention deficit hyperactivity disorder), combined type F90.2 ; Generalized anxiety disorder F41.1 and Dysthymic disorder F34.1 [place] [id number] [place] [address] February, [place] [address] [place] [address] February, [place] [id number] [place] [address] February, Hypertension I10 and Weight gain R63.5 [place] [id number] [place] [id number] February, Major depressive disorder, recurrent, moderate F33.1 and Generalized anxiety disorder F41.1 [place] [address] [address] [place] [id number] [place] [phone] February, ADHD (attention deficit hyperactivity disorder), combined type F90.2 ; Generalized anxiety disorder F41.1 and Dysthymic disorder F34.1 [place] [address] [address] [place] [id number] [place] [phone] February, [place] [address] [address] [place] [id number] [place] [id number] February, Asthma J45.909 ; Weight gain R63.5 ; Hypertension I10 ; Rheumatoid arthritis M06.9 and Chronic pain syndrome G89.4 [place] [address] [address] [place] [id number] [place] [phone] Jan, ADHD (attention deficit hyperactivity disorder), combined type F90.2 ; Generalized anxiety disorder F41.1 and Dysthymic disorder F34.1 [place] [address] [address] [place] [id number] [place] [address] Dec, ADHD (attention deficit hyperactivity disorder), combined type F90.2 ; Generalized anxiety disorder F41.1 and Dysthymic disorder F34.1 [place] [address] [place] [address] [id number] [place] [address] Dec, [place] [id number] [place] [address] Nov, [place] [id number] [place] [address] [place] [address] Nov, [facility] [address] [address] Nov, [facility] [address], [place] [address] Nov, [facility] [address], [place] [address] Oct, [facility] [address], [place] [address] Oct, [facility] [id number] [place] [address] Oct, [facility] [address], [place] [address] Sep, [facility] [address], [place] [address] Sep, [facility] [address], [place] [address] Sep, Agoraphobia with panic disorder F40.01 ; Attention-deficit hyperactivity disorder, combined type F90.2 and Dysthymic disorder F34.1 [facility] [address] [address] Aug, [facility] [address], [place] [address] Aug, [facility] [address] [address] Aug, [facility] [address], [place] [address] Aug, Dysthymic disorder F34.1 ; Generalized anxiety disorder F41.1 and ADHD (attention deficit hyperactivity disorder), combined type F90.2 [facility] [address] [address] Aug, ADHD (attention deficit hyperactivity disorder), combined type F90.2 ; Generalized anxiety disorder F41.1 and Dysthymic disorder F34.1 [place] [id number] [place] [address] Jul, Urinary tract infection, site not specified N39.0 ; Hypotension, unspecified I95.9 and Breast cancer screening Z12.39 [place] [id number] [place] [address] Jul, [facility] [id number] [place] [address] Jul, [facility] [id number] [place] [address] Jul, Urinary tract infection, site not specified N39.0 ; Nausea R11.0 ; Gastroenteritis K52.9 ; Renal failure N19 and Other hypotension I95.89 [facility] [id number] [place] [address] Jul, [facility] [id number] [place] [address] Jul, [facility] [id number] [place] [address] Jul, [facility] [id number] [place] [address] Jun, [facility] [id number] [place] [address] Jun, Major depression in partial remission 296.25 ; Generalized anxiety disorder 300.02 and ADHD, predominantly inattentive type 314.01 [facility] [id number] [place] [address] May, [facility] [id number] [place] [address] Apr, Major depressive disorder, recurrent episode, severe, without mention of psychotic behavior 296.33 ; Agoraphobia with panic disorder 300.21 and Generalized anxiety disorder 300.02 [facility] [address] [address] Apr, ADHD (attention deficit hyperactivity disorder), combined type 314.01 ; Generalized anxiety disorder 300.02 and Dysthymic disorder 300.4 [place] [address] [address] Apr, CAD (coronary artery disease) 414.00 ; HTN (hypertension) 401.9 and Tobacco use 305.1 [place] [id number] [place] [address] Apr, [place] [id number] [place] [address] Mar, ADHD (attention deficit hyperactivity disorder), combined type 314.01 ; Generalized anxiety disorder 300.02 ; Dysthymic disorder 300.4 ; No condition on Hondo II V71.09 ; Rheumatoid arthritis 714.0 ; Incontinence 788.30 ; Irritable bowel syndrome 564.1 ; Osteoporosis 733.00 and Chronic pain 338.29 [place] [address], [place] [address] Mar, Agoraphobia with panic disorder 300.21 and Major depressive disorder, recurrent episode, moderate 296.32 [address] [address] Mar, [facility] [address], [place] [address] February, [facility] [address], [place] [address] February, Agoraphobia with panic disorder 300.21 and Major depressive disorder, recurrent episode, moderate 296.32 [id number] [place] [address] February, [facility] [address], [place] [address] Jan, [place] [id number] [address] 13 Jan, 2014 [facility] [place] [facility] [address] [id number] [place] [address] Dec, [facility] [place] [facility] [address] [id number] [place] [address] Dec, [facility] [place] [facility] [address] [id number] [place] [address] Dec, [facility] [place] [facility] [address] [id number] [place] [address] Dec, [facility] [place] [facility] [address] [id number] [place] [address] Dec, [facility] [place] [facility] [address] [facility] [id number] [place] [address] Dec, [facility] [place] [facility] [address] [facility] [id number] [place] [address] Nov, 2014 [facility] [place] [facility] [address] [facility] [id number] [place] [address] Nov, 2014 [facility] [place] [facility] [address] [facility] [id number] [place] [address] Nov, 2014 [facility] [place] [facility] [address] [facility] [id number] [place] [address] Nov, 2014 [facility] [place] [facility] [address] [facility] [id number] [place] [address] Nov, 2014 [facility] [place] [facility] [address] [facility] [id number] [place] [address] 17 Nov, 2014 [facility] [place] [facility] [address] [facility] [id number] [place] [address] 10 Nov, 2014 [facility] [place] [facility] [address] [facility] [id number] [place] [address] 10 Nov, 2014 [facility] [place] [facility] [address] [place] [address] Oct, [facility] [place] [facility] [address] [id number] [place] [address] Oct, [facility] [place] [facility] [address] [id number] [place] [address] Oct, [facility] [place] [facility] [address] [id number] [place] [address] Oct, [facility] [place] [facility] [address] [id number] [place] [address] Oct, [facility] [place] [facility] [address] [id number] [place] [address] Oct, [facility] [place] [facility] [address] [id number] [place] [address] Sep, [facility] [place] [facility] [address] [id number] [place] [address] Sep, [facility] [place] [facility] [address] [id number] [place] [address] Sep, [facility] [place] [facility] [address] [id number] [place] [address] Sep, [facility] [place] [facility] [address] [id number] [place] [address] Sep, [facility] [place] [facility] [address] [id number] [place] [address] Sep, [facility] [place] [facility] [address] [id number] [place] [address] Sep, [facility] [place] [facility] [address] [id number] [place] [address] Aug, [facility] [place] [facility] [address] [id number] [place] [address] Aug, [facility] [place] [facility] [address] [id number] [place] [address] Aug, [facility] [place] [facility] [address] [id number] [place] [address] Aug, [facility] [place] [facility] [address] [id number] [place] [address] Aug, [facility] [place] [facility] [address] [id number] [place] [address] Aug, [facility] [place] [facility] [address] [id number] [place] [address] Jul, [facility] [place] [facility] [address] [id number] [place] [address] Jul, [facility] [place] [facility] [address] [id number] [place] [address] Jul, [facility] [place] [facility] [address] [id number] [place] [address] Jul, [facility] [place] [facility] [address] [id number] [place] [address] Jul, [facility] [place] [facility] [address] [id number] [place] [address] Jul, [facility] [place] [facility] [address] [id number] [place] [address] Jun, [facility] [place] [facility] [address] [id number] [place] [address] Jun, [facility] [place] [facility] [address] [id number] [place] [address] May, [facility] [place] [facility] [address] [id number] [place] [address] May, [facility] [place] [facility] [address] [id number] [place] [address] Apr, [facility] [place] [facility] [address] [id number] [place] [address] Apr, [facility] [place] [facility] [address] [id number] [place] [address] Apr, [facility] [place] [facility] [address] [id number] [place] [address] Apr, [facility] [place] [facility] [address] [id number] [place] [address] Mar, [facility] [place] [facility] [address] [id number] [place] [address] Mar, [facility] [place] [facility] [address] [id number] [place] [address] Mar, [facility] [place] [facility] [address] [id number] [place] [address] Mar, [facility] [place] [facility] [address] [id number] [place] [address] February, [facility] [place] [facility] [address] [id number] [place] [address] February, [facility] [place] [facility] [address] [id number] [place] [address] February, [facility] [place] [facility] [address] [id number] [place] [address] February, [facility] [place] [facility] [address] [id number] [place] [address] February, [facility] [place] [facility] [address] [id number] [place] [address] February, [facility] [place] [facility] [address] [id number] [place] [address] Jan, [facility] [place] [facility] [address] [id number] [place] [address] Jan, [facility] [place] [facility] [address] [id number] [place] [address] Dec, [facility] [place] [facility] [address] [id number] [place] [address] Dec, [facility] [place] [facility] [address] [id number] [place] [address] Nov, [facility] [address] [id number] [place] [address] Nov, [facility] [place] [facility] [address] [id number] [place] [address] Oct, [facility] [address] [id number] [place] [address] Oct, [facility] [place] [facility] [address] [id number] [place] [address] Oct, [facility] [address] [id number] [place] [address] Oct, [facility] [place] [facility] [address] [id number] [place] [address] Sep, [facility] [address] [id number] [place] [address] Sep, [facility] [address] [id number] [place] [address] Sep, [facility] [address] [id number] [place] [address] Sep, [facility] [address] [id number] [place] [address] Sep, [facility] [address] [id number] [place] [address] Sep, [facility] [place] [facility] [address] [id number] [place] [address] Sep, [facility] [place] [facility] [address] [id number] [place] [address] Sep, [facility] [place] [facility] [address] [id number] [place] [address] Aug, [facility] [place] [facility] [address] [id number] [place] [address] Aug, [facility] [place] [facility] [address] [id number] [place] [address] Aug, [facility] [place] [facility] [address] [id number] [place] [address] Aug, [facility] [place] [facility] [address] [id number] [place] [address] Aug, [facility] [place] [facility] [address] [id number] [place] [address] Aug, [facility] [place] [facility] [address] [id number] [place] [address] Aug, [facility] [place] [facility] [address] [id number] [place] [address] Aug, [facility] [place] [facility] [address] [id number] [place] [address] Aug, [facility] [place] [facility] [address] [id number] [place] [address] Jul, [facility] [place] [facility] [address] [id number] [place] [address] Jun, [facility] [place] [facility] [address] [id number] [place] [address] May, [facility] [place] [facility] [address] [id number] [place] [address] May, [facility] [place] [facility] [address] [id number] [place] [address] May, [facility] [place] [facility] [address] [id number] [place] [address] Apr, [facility] [place] [facility] [address] [id number] [place] [address] Mar, [facility] [place] [facility] [address] [id number] [place] [address] February, [facility] [place] [facility] [address] [id number], [place] [address] 17 Oct, 2012 [facility] [place] [facility] [address] [id number] [place] [address] 16 Oct, 2012 [facility] [place] [facility] [address] [id number] [place] [address] Oct, [facility] [place] [facility] [address] [id number] [place] [address] Oct, [facility] [place] [facility] [address] [id number] [place] [address] Oct, [facility] [place] [facility] [address] [id number] [place] [address] Oct, [facility] [place] [facility] [address] [id number] [place] [address] Sep, [facility] [place] [facility] [address] [id number] [place] [address] Sep, [facility] [place] [facility] [address] [id number] [place] [address] Aug, [facility] [place] [facility] [address] [id number] [place] [address] Aug, [facility] [place] [facility] [address] [id number] [place] [address] Jul, [facility] [place] [facility] [address] [id number], [place] [address] Jul, [facility] [place] [facility] [address] [id number], [place] [address] Jul, [facility] [place] [facility] [address] [id number] [place] [address] Jul, [facility] [place] [facility] [address] [id number] [place] [address] Jul, [facility] [place] [facility] [address] [id number] [place] [address] Jul, [facility] [place] [facility] [address] [id number] [place] [address] Jul, [facility] [address] [id number] [place] [address] Jul, [facility] [place] [facility] [address] [id number] [place] [address] 16 Jun, 2012 [facility] [address] [id number] [place] [address] Jun, [facility] [address] [id number] [place] [address] May, [facility] [address] [id number] [place] [address] Apr, [facility] [address] [id number] [place] [address] Mar, [facility] [address] [id number] [place] [address] Mar, [facility] [address] [id number] [place] [address] Mar, [facility] [address] [id number] [place] [address] Mar, [facility] [address] [id number] [place] [address] Jan, [facility] [place] [facility] [address] [id number] [place] [address] Nov, [facility] [address] [id number] [place] [address] Nov, [facility] [place] [facility] [address] [id number] [place] [address] Nov, [facility] [place] [facility] [address] [id number] [place] [address] Oct, [facility] [place] [facility] [address] [id number] [place] [address] Sep, [facility] [address] [address] Sep, [facility] [id number] [place] [address] Aug, [facility] [address], [place] [address] Aug, [facility] [id number] [place] [address] Aug, [facility] [id number] [place] [address] Aug, [facility] [id number] [place] [address] Jul, [facility] [id number] [place] [address] May, [facility] [id number] [place] [address] Jan, [facility] [id number] [place] [address] Nov, [facility] [id number] [place] [address] Apr, [facility] [address] [address] Dec, [facility] [address] [address] Nov, IMMUNIZATIONS No Known Immunizations SOCIAL HISTORY Never Assessed REASON FOR VISIT EMR-[facility] PLAN OF CARE VITAL SIGNS MEDICATIONS Unknown Medications RESULTS No Results PROCEDURES No Known procedures INSTRUCTIONS MEDICATIONS ADMINISTERED No Known Medications MEDICAL (GENERAL) HISTORY Type Description Date Medical History Cardiovascular nnayuxwh-GQI-Xvjzksuo, non-obstructive per (01/2011) Dr. Mendoza Medical History Stress test 03/07/13-Dr. Kelly Dietrich normal Medical History Hypertension Medical History Asthma Medical History Gastrointestinal Disorder--IBS, GERD, Hx of fatty liver Medical History Hernia 1979 Medical History Cervical dysplasia 02/16-Pap LGSIL/[place]-mild dysplasia Medical History Hyperlipidemia Medical History Rheumatoid [...]
--- OUTSIDE RECORDS SUMMARY | 2019-05-22 07:36 | XMS REPORT ---
Author Author Migration, Doctor Organization [facility] Address Unknown Phone Unavailable Care Team Providers Care Transition Social Worker Name Role Phone Migration, Doctor Unavailable Unavailable PROBLEMS Type Condition ICD9-CM Code DVB09-MR Code Onset Dates Condition Status SNOMED Code Problem Morbid (severe) obesity due to excess calories E66.01 Active 850080428 Problem ADHD (attention deficit hyperactivity disorder), combined type F90.2 Active 52554084 Problem Generalized anxiety disorder F41.1 Active 74723997 Problem Rheumatoid arthritis M06.9 Active 85747660 Problem Chronic pain syndrome G89.4 Active 110448430 Problem Hypertension I10 Active 77804074 Problem Asthma J45.909 Active 267226859 Problem Anxiety F41.9 Active 43196165 Problem Gastroesophageal reflux disease with esophagitis K21.0 Active 671870906 Problem Hemiparesis of left nondominant side as late effect of cerebral infarction I69.354 Active 062524284 Problem Other insomnia G47.09 Active 762292789 Problem Neuropathy G62.9 Active 032811670 Problem Other penitentiary (current) drug therapy Z79.899 Active 077012888 Problem Obstructive sleep apnea G47.33 Active 76948888 Problem Dysthymic disorder F34.1 Active 42214732 Problem Cerebrovascular accident (CVA), unspecified mechanism I63.9 Active 521368058 Problem Rheumatoid arthritis involving multiple sites, unspecified rheumatoid factor presence M06.9 Active 090480853 Problem Sleep apnea in adult G47.30 Active 59086002 Problem Irritable bowel syndrome with diarrhea K58.0 Active 571918134 Problem Panic attacks F41.0 Active 493045365 Problem Mild episode of recurrent major depressive disorder F33.0 Active 540833879 Problem Chronic obstructive pulmonary disease J44.9 Active 95198736 Problem Mixed hyperlipidemia E78.2 Active 030403052 Problem Hemiplegia affecting left nondominant side G81.94 Active Problem Arteriosclerotic coronary artery disease I25.10 Active 21886342 Problem Hyperinsulinemia E16.1 Active 05858279 Problem Seasonal allergies J30.2 Active 865855986 Problem Primary insomnia F51.01 Active 8567541 Problem Paroxysmal atrial fibrillation I48.0 Active 942320901 Problem Unsteady gait R26.81 Active 55654074 ALLERGIES No Information ENCOUNTERS Encounter Location Date Diagnosis [facility] [address] [address] 15 Jan, 2019 [facility] [id number] [place] [address] Dec, [facility] [id number] [place] [address] Dec, [facility] [id number] [place] [address] Dec, [facility] [id number] [place] [address] Dec, [place] [id number] [id number] Nov, Viral upper respiratory tract infection J06.9 [facility] [id number] [place] [address] Nov, [facility] [id number] [place] [address] Oct, [facility] [id number] [place] [address] Sep, [facility] [id number] [place] [address] Sep, [facility] [id number] [place] [address] Sep, [facility] [id number] [place] [address] Sep, Orthostatic hypotension I95.1 ; Shortness of breath R06.02 ; Right foot pain M79.671 and Morbid (severe) obesity due to excess calories E66.01 [facility] [id number] [place] [address] Aug, [facility] [address] [facility] [id number] [address] Aug, [facility] [address] [facility] [id number] [address] Aug, [facility] [address] [facility] [id number] [address] Aug, [facility] [address] [facility] [id number] [address] Aug, [facility] [address] [facility] [id number] [address] Jul, [facility] [address] [facility] [id number] [address] Jul, [facility] [address] [facility] [id number] [address] Jul, [facility] [address] [facility] [id number] [address] Jul, [facility] [address] [facility] [id number] [place] [address] Jul, [facility] [address] [facility] [id number] [address] Jul, [facility] [address] [place] [id number] Jul, Hemiplegia affecting left nondominant side G81.94 ; Chronic obstructive pulmonary disease J44.9 and Weakness R53.1 [facility] [address] [facility] [id number] [address] Jul, [facility] [address] [place] [id number] Jul, Weakness R53.1 ; Paroxysmal atrial fibrillation I48.0 and Unsteady gait R26.81 [facility] [address] [facility] [id number] [address] Jul, Tobacco abuse Z72.0 [facility] [place] [address] [place] [id number] Jun, History of acute respiratory failure Z87.09 ; Weight gain R63.5 and Tobacco abuse Z72.0 [place] [id number] [place] [address] Jun, [place] [id number] [place] [address] May, Primary insomnia F51.01 [place] [id number] [place] [address] May, Mild episode of recurrent major depressive disorder F33.0 [place] [id number] [place] [address] May, [place] [id number] [place] [address] May, Chronic obstructive pulmonary disease, unspecified COPD type J44.9 ; Primary insomnia F51.01 ; Fatigue, unspecified type R53.83 and Weight gain R63.5 [place] [id number] [place] [address] May, Thrush B37.0 [place] [id number] [place] [address] May, Mild episode of recurrent major depressive disorder F33.0 and Generalized anxiety disorder F41.1 [place] [id number] [place] [address] May, Thrush B37.0 [place] [id number] [place] [address] Apr, Cough R05 [place] [id number] [place] [address] Mar, Mild episode of recurrent major depressive disorder F33.0 [place] [id number] [place] [address] Mar, Mild episode of recurrent major depressive disorder F33.0 and Generalized anxiety disorder F41.1 [facility] [id number] [place] [address] Mar, Seasonal allergies J30.2 [facility] [id number] [place] [address] Mar, Seasonal allergies J30.2 [facility] [address] [address] February, Generalized anxiety disorder F41.1 [facility] [id number] [place] [address] February, Cough R05 and Seasonal allergies J30.2 [facility] [id number] [place] [address] February, Generalized anxiety disorder F41.1 and Mild episode of recurrent major depressive disorder F33.0 [facility] [id number] [place] [address] February, Other improvement intern (current) drug therapy Z79.899 ; Anxiety F41.9 ; Panic attacks F41.0 and Irritable bowel syndrome with diarrhea K58.0 [facility] [id number] [place] [address] February, [facility] [id number] [place] [address] Jan, Mixed hyperlipidemia E78.2 [facility] [id number] [place] [address] Jan, [facility] [id number] [place] [address] Jan, [facility] [id number] [place] [address] Jan, [facility] [id number] [place] [address] Jan, [facility] [id number] [place] [address] Dec, [facility] [address] [address] Dec, [facility] [id number] [place] [address] Dec, [facility] [id number] [place] [address] Nov, Dysthymic disorder F34.1 [facility] [id number] [place] [address] Oct, [facility] [address] [address] Oct, [facility] [address] [address] Oct, [facility] [address] [address] Oct, Diarrhea, unspecified type R19.7 and Dysuria R30.0 [facility] [id number] [place] [address] Oct, [facility] [id number] [place] [address] Sep, [facility] [id number] [place] [address] Sep, [facility] [id number] [place] [address] Sep, Anxiety F41.9 [facility] [address] [address] Sep, Cerebrovascular accident (CVA), unspecified mechanism I63.9 ; Mixed hyperlipidemia E78.2 ; Gastroesophageal reflux disease with esophagitis K21.0 and Anxiety F41.9 [facility] [id number] [place] [address] Sep, [place] [id number] [place] [address] Aug, Chronic obstructive pulmonary disease, unspecified J44.9 ; Asthma J45.909 ; Nausea R11.0 ; Dysthymic disorder F34.1 ; Cerebrovascular accident (CVA), unspecified mechanism I63.9 and Rheumatoid arthritis M06.[address] [address] Aug, Nausea R11.0 ; Encounter for immunization Z23 ; Sleep apnea in adult G47.30 ; Rheumatoid arthritis involving multiple sites, unspecified rheumatoid factor presence M06.9 ; Generalized anxiety disorder F41.1 ; Dysthymic disorder F34.1 and Asthma J45.[address] [address] Jul, [address] [address] May, ADHD (attention deficit hyperactivity disorder), combined type F90.2 ; Generalized anxiety disorder F41.1 and Persistent depressive disorder F34.[address] [address] May, Cerebrovascular accident (CVA), unspecified mechanism I63.9 [place] [id number] [place] [address] Apr, Mixed hyperlipidemia E78.2 and Cerebrovascular accident (CVA), unspecified mechanism I63.9 [place] [id number] [place] [address] Apr, Generalized anxiety disorder F41.[address] [address] Apr, Bronchitis J40 and Tobacco use Z72.[address] [address] Apr, Mixed hyperlipidemia E78.2 [facility] [id number] [place] [address] Apr, Other penitentiary (current) drug therapy Z79.899 [facility] [id number] [place] [address] Apr, [facility] [id number] [place] [address] Apr, Generalized anxiety disorder F41.1 [facility] [id number] [place] [address] Apr, Obstructive sleep apnea G47.33 and Hyperinsulinemia E16.1 [place] [address] [address] Apr, ADHD (attention deficit hyperactivity disorder), combined type F90.2 ; Generalized anxiety disorder F41.1 and Persistent depressive disorder F34.1 [place] [id number] [place] [address] Mar, [place] [id number] [place] [address] Mar, Generalized anxiety disorder F41.1 [place] [id number] [place] [address] Mar, Tarsal tunnel syndrome of both lower extremities G57.53 [place] [id number] [place] [address] February, [facility] [id number] [place] [address] February, [facility] [id number] [place] [address] February, Asthma J45.909 [facility] [id number] [place] [address] February, Generalized anxiety disorder F41.1 [facility] [id number] [place] [address] February, Hypoxemia R09.02 ; Hyperglycemia R73.9 ; Rheumatoid arthritis M06.9 and Generalized anxiety disorder F41.1 [place] [address] [address] February, [place] [address] [address] Jan, Chronic obstructive pulmonary disease, unspecified J44.9 [place] [address] [address] Jan, Chronic pain syndrome G89.4 [place] [address] [address] Jan, Hypoxemia R09.02 [place] [address] [address] Jan, [place] [address] [address] Jan, Chronic obstructive pulmonary disease, unspecified J44.9 ; Hypoxemia R09.02 ; Other insomnia G47.09 and Left anterior shoulder pain M25.512 [place] [address] [address] Jan, Numbness in feet R20.0 and Neuropathy G62.9 [place] [address] [address] Jan, [place] [address] [address] Dec, Acute pain of left shoulder M25.512 [place] [address] [address] Dec, Acute pain of left shoulder M25.512 [place] [address] [address] Dec, Generalized anxiety disorder F41.1 [place] [address] [address] Dec, Generalized anxiety disorder F41.1 [facility] [id number] [place] [address] Nov, ADHD (attention deficit hyperactivity disorder), combined type F90.2 ; Generalized anxiety disorder F41.1 and Persistent depressive disorder F34.1 [facility] [id number] [place] [address] Nov, Acute pain of left shoulder M25.512 [facility] [id number] [place] [address] Nov, ADHD (attention deficit hyperactivity disorder), combined type F90.2 ; Generalized anxiety disorder F41.1 and Persistent depressive disorder F34.1 [facility] [id number] [place] [address] Nov, Chronic pain syndrome G89.4 [facility] [id number] [place] [address] Nov, Chronic pain syndrome G89.4 [facility] [id number] [place] [address] Nov, Acute pain of left shoulder M25.512 [facility] [id number] [place] [address] Nov, Generalized anxiety disorder F41.1 [facility] [id number] [place] [address] Nov, Acute pain of left shoulder M25.512 [facility] [id number] [place] [address] Nov, ADHD (attention deficit hyperactivity disorder), combined type F90.2 ; Generalized anxiety disorder F41.1 and Persistent depressive disorder F34.1 [facility] [address] [address] Nov, Acute pain of left shoulder M25.512 ; Generalized anxiety disorder F41.1 ; Chronic pain syndrome G89.4 ; Hyperinsulinemia E16.1 ; Pain of left foot M79.672 and Pain in right foot M79.671 [place] [id number] [place] [address] Oct, ADHD (attention deficit hyperactivity disorder), combined type F90.2 ; Generalized anxiety disorder F41.1 and Dysthymic disorder F34.1 [place] [id number] [place] [address] Sep, [place] [id number] [place] [address] Sep, [place] [id number] [place] [address] Sep, Routine gynecological examination V72.31 ; Cervical cancer screening Z12.4 ; Breast cancer screening Z12.39 ; Colon cancer screening Z12.11 ; Hypokalemia E87.6 ; Herpes simplex type 1 infection B00.9 and Abscess of right axilla L02.411 [place] [id number] [place] [address] Sep, [place] [id number] [place] [address] Sep, ADHD (attention deficit hyperactivity disorder), combined type F90.2 ; Generalized anxiety disorder F41.1 and Dysthymic disorder F34.1 [place] [id number] [place] [address] Aug, [place] [id number] [place] [address] Aug, [place] [id number] [place] [address] Aug, Generalized anxiety disorder F41.1 [place] [address] [place] [address] Aug, ADHD (attention deficit hyperactivity disorder), combined type F90.2 ; Generalized anxiety disorder F41.1 and Dysthymic disorder F34.1 [place] [id number] [place] [address] Jul, Chronic pain syndrome G89.4 ; Hypertension I10 ; Hypokalemia E87.6 ; Asthma J45.909 and Nausea R11.0 [place] [address] [address] Jul, [place] [address] [address] Jul, Asthma J45.909 [place] [address] [address] Jul, ADHD (attention deficit hyperactivity disorder), combined type F90.2 ; Generalized anxiety disorder F41.1 and Dysthymic disorder F34.1 [place] [address] [address] Jul, [place] [address] [address] Jul, Hypertension I10 ; Arteriosclerotic coronary artery disease I25.10 ; Mixed hyperlipidemia E78.2 ; Other penitentiary (current) drug therapy Z79.899 and Hyperglycemia R73.9 [place] [id number] [place] [address] 16 Jun, 2016 Hypokalemia E87.6 and Hyperglycemia R73.9 [place] [id number] [place] [address] 14 Jun, 2016 [place] [address] [address] 13 Jun, 2016 Abnormal kidney function N28.9 [place] [id number] [place] [address] 09 Jun, 2016 [place] [address] [address] Jun, ADHD (attention deficit hyperactivity disorder), combined type F90.2 ; Generalized anxiety disorder F41.1 and Dysthymic disorder F34.1 [place] [address] [address] Jun, Generalized anxiety disorder F41.1 and Dysthymic disorder F34.1 [place] [address] [address] Jun, Hypokalemia E87.6 [place] [address] [address] May, Hypokalemia E87.6 ; Vertigo R42 and Hyperinsulinemia E16.1 [place] [address] [address] May, [place] [address] [address] May, Abnormal kidney function N28.9 ; Hyperinsulinemia E16.1 and Nausea R11.0 [place] [address] [address] May, Hypokalemia E87.6 ; Nausea R11.0 ; Epigastric pain R10.13 ; Dehydration E86.0 ; Diaphoresis R61 and Right arm pain M79.601 [place] [address] [address] May, [place] [address] [address] May, Hypokalemia E87.6 [place] [address] [address] May, Hypokalemia E87.6 [place] [address] [address] Apr, [place] [address] [address] Apr, ADHD (attention deficit hyperactivity disorder), combined type F90.2 ; Generalized anxiety disorder F41.1 and Dysthymic disorder F34.1 [facility] [id number] [place] [address] Apr, Right arm pain M79.601 and Hyperinsulinemia E16.1 [facility] [id number] [place] [address] Mar, [facility] [id number] [place] [address] Mar, [facility] [id number] [place] [address] Mar, Hyperinsulinemia E16.1 ; Hyperlipidemia, unspecified hyperlipidemia type E78.5 ; Central venous catheter in place Z78.9 ; Generalized anxiety disorder F41.1 and Urinary tract infection, site not specified N39.0 [place] [id number] [place] [address] Mar, ADHD (attention deficit hyperactivity disorder), combined type F90.2 ; Generalized anxiety disorder F41.1 and Dysthymic disorder F34.1 [place] [id number] [place] [address] February, ADHD (attention deficit hyperactivity disorder), combined type F90.2 ; Generalized anxiety disorder F41.1 and Dysthymic disorder F34.1 [place] [id number] [place] [address] February, [facility] [id number] [place] [address] February, [facility] [id number] [place] [address] February, Hypertension I10 and Weight gain R63.5 [facility] [address] [place] [id number] [place] [address] February, Major depressive disorder, recurrent, moderate F33.1 and Generalized anxiety disorder F41.1 [facility] [address] [address] February, ADHD (attention deficit hyperactivity disorder), combined type F90.2 ; Generalized anxiety disorder F41.1 and Dysthymic disorder F34.1 [facility] [id number] [place] [address] February, [facility] [id number] [place] [address] February, Asthma J45.909 ; Weight gain R63.5 ; Hypertension I10 ; Rheumatoid arthritis M06.9 and Chronic pain syndrome G89.4 [facility] [id number] [place] [address] Jan, ADHD (attention deficit hyperactivity disorder), combined type F90.2 ; Generalized anxiety disorder F41.1 and Dysthymic disorder F34.1 [facility] [id number] [place] [phone] Dec, ADHD (attention deficit hyperactivity disorder), combined type F90.2 ; Generalized anxiety disorder F41.1 and Dysthymic disorder F34.1 [facility] [id number] [place] [phone] Dec, [facility] [id number] [phone] Nov, [facility] [id number] [place] [address] Nov, [facility] [id number] [place] [address] Nov, [facility] [id number] [place] [address] Nov, [facility] [id number] [place] [address] Oct, [facility] [address] [place] [address] Oct, [facility] [address] [address] Oct, [facility] [address] [address] Sep, [facility] [id number] [place] [address] Sep, [facility] [id number] [place] [address] Sep, Agoraphobia with panic disorder F40.01 ; Attention-deficit hyperactivity disorder, combined type F90.2 and Dysthymic disorder F34.1 [facility] [id number] [place] [address] Aug, [facility] [id number] [place] [address] Aug, [facility] [address] [address] Aug, [facility] [id number] [place] [address] Aug, Dysthymic disorder F34.1 ; Generalized anxiety disorder F41.1 and ADHD (attention deficit hyperactivity disorder), combined type F90.2 [facility] [address] [address] Aug, ADHD (attention deficit hyperactivity disorder), combined type F90.2 ; Generalized anxiety disorder F41.1 and Dysthymic disorder F34.1 [facility] [id number] [place] [address] Jul, Urinary tract infection, site not specified N39.0 ; Hypotension, unspecified I95.9 and Breast cancer screening Z12.39 [facility] [address] [address] Jul, [facility] [id number] [address] Jul, [facility] [id number] [place] [address] Jul, Urinary tract infection, site not specified N39.0 ; Nausea R11.0 ; Gastroenteritis K52.9 ; Renal failure N19 and Other hypotension I95.89 [facility] [address] [address] Jul, [facility] [id number] [place] [address] Jul, [facility] [id number] [place] [address] Jul, [facility] [id number] [place] [address] Jun, [facility] [id number] [place] [address] Jun, Major depression in partial remission 296.25 ; Generalized anxiety disorder 300.02 and ADHD, predominantly inattentive type 314.01 [id number] [place] [address] May, [facility] [id number] [place] [address] Apr, Major depressive disorder, recurrent episode, severe, without mention of psychotic behavior 296.33 ; Agoraphobia with panic disorder 300.21 and Generalized anxiety disorder 300.02 [facility] [id number] [place] [address] Apr, ADHD (attention deficit hyperactivity disorder), combined type 314.01 ; Generalized anxiety disorder 300.02 and Dysthymic disorder 300.4 [facility] [id number] [place] [address] Apr, CAD (coronary artery disease) 414.00 ; HTN (hypertension) 401.9 and Tobacco use 305.1 [id number] [address] Apr, [facility] [id number] [place] [address] Mar, ADHD (attention deficit hyperactivity disorder), combined type 314.01 ; Generalized anxiety disorder 300.02 ; Dysthymic disorder 300.4 ; No condition on [place] V71.09 ; Rheumatoid arthritis 714.0 ; Incontinence 788.30 ; Irritable bowel syndrome 564.1 ; Osteoporosis 733.00 and Chronic pain 338.29 [facility] [id number] [place] [address] Mar, Agoraphobia with panic disorder 300.21 and Major depressive disorder, recurrent episode, moderate 296.32 [facility] [id number] [place] [address] Mar, [facility] [id number] [place] [address] February, [facility] [id number] [place] [address] February, Agoraphobia with panic disorder 300.21 and Major depressive disorder, recurrent episode, moderate 296.32 [facility] [address] [address] February, [facility] [address] [address] Jan, [facility] [id number] [address] Jan, [facility] [id number] [place] [address] Dec, [facility] [id number] [place] [address] Dec, [facility] [address] [address] Dec, [facility] [id number] [place] [address] Dec, [facility] [place] [facility] [address] [id number] [place] [address] Dec, [facility] [place] [facility] [address] [id number] [place] [address] Dec, [facility] [place] [facility] [address] [id number] [place] [address] Nov, 2014 [facility] [place] [facility] [address] [id number] [place] [address] Nov, [facility] [place] [facility] [address] [id number] [place] [address] Nov, [facility] [place] [facility] [address] [id number] [place] [address] Nov, [facility] [place] [facility] [address] [id number] [place] [address] Nov, [facility] [place] [facility] [address] [id number] [place] [address] Nov, [facility] [place] [facility] [address] [facility] [id number] [place] [address] Nov, [facility] [place] [facility] [address] [id number] [place] [address] Nov, [facility] [place] [facility] [address] [id number] [address] Oct, [facility] [place] [facility] [address] [id number] [place] [address] Oct, [facility] [place] [facility] [address] [id number] [place] [address] Oct, [facility] [place] [facility] [address] [id number] [place] [address] Oct, [facility] [place] [facility] [address] [id number] [address] Oct, [facility] [place] [facility] [address] [id number] [place] [address] Oct, [facility] [place] [facility] [address] [id number] [place] [address] Sep, [facility] [place] [facility] [address] [id number] [place] [address] Sep, [facility] [place] [facility] [address] [id number] [place] [address] Sep, [facility] [place] [facility] [address] [id number] [place] [address] Sep, [facility] [place] [facility] [address] [id number] [place] [address] Sep, [facility] [place] [facility] [address] [id number] [place] [address] Sep, [facility] [place] [facility] [address] [id number] [place] [address] Sep, [facility] [place] [facility] [address] [id number] [place] [address] Aug, [facility] [place] [facility] [address] [id number] [place] [address] Aug, [facility] [place] [facility] [address] [id number] [address] Aug, [facility] [place] [facility] [address] [id number] [address] Aug, [facility] [place] [facility] [address] [id number] [place] [address] Aug, [facility] [place] [facility] [address] [id number] [place] [address] Aug, [facility] [place] [facility] [address] [id number] [place] [address] Jul, [facility] [place] [facility] [address] [id number] [place] [address] Jul, [facility] [place] [facility] [address] [id number] [place] [address] Jul, [facility] [place] [facility] [address] [id number] [place] [address] Jul, [facility] [place] [facility] [address] [id number] [place] [address] Jul, [facility] [place] [facility] [address] [id number] [place] [address] Jul, [facility] [place] [facility] [address] [id number] [place] [address] Jun, [facility] [place] [facility] [address] [id number] [place] [address] Jun, [facility] [place] [facility] [address] [id number] [place] [address] May, [facility] [place] [facility] [address] [id number] [place] [address] May, [facility] [place] [facility] [address] [id number] [place] [address] Apr, [facility] [place] [facility] [address] [id number] [place] [address] Apr, [facility] [place] [facility] [address] [id number] [place] [address] Apr, [facility] [place] [facility] [address] [id number] [place] [address] Apr, [facility] [place] [facility] [address] [id number] [place] [address] Mar, [facility] [place] [facility] [address] [id number] [place] [address] Mar, [facility] [place] [facility] [address] [id number] [place] [address] Mar, [facility] [place] [facility] [address] [id number] [place] [address] Mar, [facility] [place] [facility] [address] [id number] [place] [address] February, [facility] [place] [facility] [address] [id number] [place] [address] February, [facility] [place] [facility] [address] [id number] [place] [address] February, [facility] [place] [facility] [address] [id number] [place] [address] February, [facility] [place] [facility] [address] [id number] [place] [address] February, [facility] [place] [facility] [address] [id number] [place] [address] February, [facility] [place] [facility] [address] [id number] [place] [address] Jan, [facility] [place] [facility] [address] [id number] [place] [address] Jan, [facility] [place] [facility] [address] [id number] [place] [address] Dec, [facility] [place] [facility] [address] [id number] [place] [address] Dec, [facility] [place] [facility] [address] [id number] [place] [address] Nov, [facility] [place] [facility] [address] [id number] [place] [address] Nov, [facility] [place] [facility] [address] [id number] [place] [address] Oct, [facility] [place] [facility] [address] [id number] [place] [address] Oct, [facility] [place] [facility] [address] [id number] [place] [address] Oct, [facility] [address] [id number] [place] [address] Oct, [facility] [address] [id number] [place] [address] Sep, [facility] [address] [id number] [place] [address] Sep, [facility] [place] [facility] [address] [id number] [place] [address] Sep, [facility] [address] [id number] [place] [address] Sep, [facility] [address] [id number] [place] [address] Sep, [facility] [address] [id number] [place] [address] Sep, [facility] [address] [id number] [place] [address] Sep, [facility] [address] [id number] [place] [address] Sep, [facility] [address] [id number] [place] [address] Aug, [facility] [address] [id number] [place] [address] Aug, [facility] [place] [facility] [address] [id number] [place] [address] 08 Aug, 2013 [facility] [place] [facility] [address] [id number] [place] [address] 07 Aug, 2013 [facility] [place] [facility] [address] [id number] [place] [address] Aug, [facility] [place] [facility] [address] [id number] [address] 05 Aug, 2013 [facility] [place] [facility] [address] [id number] [place] [address] Aug, [facility] [place] [facility] [address] [id number] [place] [address] Aug, [facility] [place] [facility] [address] [id number] [place] [address] Aug, [facility] [place] [facility] [address] [id number] [place] [address] Jul, [facility] [place] [facility] [address] [id number] [place] [address] Jun, [facility] [place] [facility] [address] [id number] [place] [address] May, [facility] [place] [facility] [address] [id number] [place] [address] May, [facility] [place] [facility] [address] [id number] [place] [address] May, [facility] [place] [facility] [address] [id number] [place] [address] Apr, [facility] [place] [facility] [address] [id number] [place] [address] Mar, [facility] [place] [facility] [address] [id number] [place] [address] February, [facility] [place] [facility] [address] [id number] [place] [address] Oct, [facility] [place] [facility] [address] [id number] [place] [address] 16 Oct, 2012 [facility] [place] [facility] [address] [id number] [place] [address] Oct, [facility] [place] [facility] [address] [id number] [place] [address] Oct, [facility] [place] [facility] [address] [id number] [address] Oct, [facility] [place] [facility] [address] [id number] [place] [address] Oct, [facility] [place] [facility] [address] [id number] [place] [address] Sep, [facility] [place] [facility] [address] [id number] [place] [address] Sep, [facility] [place] [facility] [address] [id number] [place] [address] Aug, [facility] [place] [facility] [address] [id number] [place] [address] Aug, [facility] [place] [facility] [address] [id number] [place] [address] Jul, [facility] [place] [facility] [address] [id number] [place] [address] Jul, [facility] [place] [facility] [address] [id number] [place] [address] Jul, [facility] [place] [facility] [address] [id number] [place] [address] Jul, [facility] [place] [facility] [address] [id number] [place] [address] Jul, [facility] [place] [facility] [address] [id number] [address] Jul, [facility] [place] [facility] [address] [id number] [address] Jul, [facility] [place] [facility] [address] [id number] [place] [address] Jul, [facility] [place] [facility] [address] [facility] [id number] [address] 16 Jun, 2012 [facility] [place] [facility] [address] [id number] [place] [address] 03 Jun, 2012 [facility] [place] [facility] [address] [id number] [place] [address] May, [facility] [address] [id number] [place] [address] Apr, [facility] [place] [facility] [address] [id number] [place] [address] Mar, [facility] [address] [id number] [place] [address] Mar, [facility] [place] [facility] [address] [id number] [place] [address] Mar, [facility] [address] [id number] [place] [address] Mar, [facility] [place] [facility] [address] [id number] [place] [address] Jan, [facility] [address] [id number] [place] [address] Nov, [facility] [address] [id number] [place] [address] Nov, [facility] [place] [facility] [address] [id number] [place] [address] Nov, [facility] [address] [id number] [place] [address] Oct, [facility] [address] [id number] [place] [address] Sep, [facility] [place] [facility] [address] [id number] [place] [address] Sep, [facility] [place] [facility] [address] [id number] [place] [address] Aug, [facility] [place] [facility] [address] [id number] [place] [address] Aug, [facility] [place] [facility] [address] [id number] [place] [address] Aug, [facility] [address] [address] Aug, [facility] [address] [address] Jul, [facility] [address] [address] May, [facility] [id number] [place] [address] Jan, [facility] [id number] [place] [address] Nov, [facility] [id number] [place] [address] Apr, [facility] [address] [address] Dec, [facility] [address] [address] Nov, IMMUNIZATIONS No Known Immunizations SOCIAL HISTORY Never Assessed REASON FOR VISIT EMR[place] [place]AN OF CARE VITAL SIGNS MEDICATIONS Unknown Medications RESULTS No Results PROCEDURES No Known procedures INSTRUCTIONS MEDICATIONS ADMINISTERED No Known Medications MEDICAL (GENERAL) HISTORY Type Description Date Medical History Cardiovascular xwvvntwd-EZO-Lbfclhwu, non-obstructive per (01/2011) Dr. Mendoza Medical History Stress test 03/07/13-Dr. Kelly Dietrich normal Medical History Hypertension Medical History Asthma Medical History Gastrointestinal Disorder--IBS, GERD, Hx of fatty liver Medical History Hernia 1979 Medical History Cervical dysplasia 02/16-Pap LGSIL/[place]-mild dysplasia Medical History Hyperlipidemia Medical History Rheumatoid [...] Kidney injury 07/10/15-07/11/2015 Hospitalization History Symptomatic Hypokalemia/Nause-[facility] 05/13/16 Hospitalization History Stroke 05/03/2017 Hospitalization History stroke 08/24/2017--09/01/2017
--- OUTSIDE RECORDS SUMMARY | 2019-05-22 07:37 | XMS REPORT ---
Author Author Migration, Doctor Organization [facility] Address Unknown Phone Unavailable Care Team Providers Care Halal [employer] Packer Name Role Phone Migration, Doctor Unavailable Unavailable PROBLEMS Type Condition ICD9-CM Code [id number] Code Onset Dates Condition Status SNOMED Code Problem Morbid (severe) obesity due to excess calories E66.01 Active 355422603 Problem ADHD (attention deficit hyperactivity disorder), combined type F90.2 Active 66792724 Problem Generalized anxiety disorder F41.1 Active 89879414 Problem Rheumatoid arthritis M06.9 Active 63169276 Problem Chronic pain syndrome G89.4 Active 544583872 Problem Hypertension I10 Active 81297156 Problem Asthma J45.909 Active 609370692 Problem Anxiety F41.9 Active 90650310 Problem Gastroesophageal reflux disease with esophagitis K21.0 Active 467200440 Problem Hemiparesis of left nondominant side as late effect of cerebral infarction I69.354 Active 780676096 Problem Other insomnia G47.09 Active 282663900 Problem Neuropathy G62.9 Active 195652529 Problem Other retirement (current) drug therapy Z79.899 Active 859279738 Problem Obstructive sleep apnea G47.33 Active 89221094 Problem Dysthymic disorder F34.1 Active 91692476 Problem Cerebrovascular accident (CVA), unspecified mechanism I63.9 Active 103147879 Problem Rheumatoid arthritis involving multiple sites, unspecified rheumatoid factor presence M06.9 Active 322847019 Problem Sleep apnea in adult G47.30 Active 39213358 Problem Irritable bowel syndrome with diarrhea K58.0 Active 237012127 Problem Panic attacks F41.0 Active 805469920 Problem Mild episode of recurrent major depressive disorder F33.0 Active 509287714 Problem Chronic obstructive pulmonary disease J44.9 Active 53419156 Problem Mixed hyperlipidemia E78.2 Active 381625598 Problem Hemiplegia affecting left nondominant side G81.94 Active Problem Arteriosclerotic coronary artery disease I25.10 Active 84394298 Problem Hyperinsulinemia E16.1 Active 28463540 Problem Seasonal allergies J30.2 Active 995137791 Problem Primary insomnia F51.01 Active 0022060 Problem Paroxysmal atrial fibrillation I48.0 Active 365618653 Problem Unsteady gait R26.81 Active [id number] ALLERGIES No Information ENCOUNTERS Encounter Location Date Diagnosis [facility] [address] [address] 15 Jan, 2019 [facility] [id number] [place] [address] Dec, [facility] [id number] [place] [address] Dec, [facility] [id number] [place] [address] Dec, [facility] [id number] [place] [address] Dec, [place] [id number] [id number] Nov, Viral upper respiratory tract infection J06.9 [facility] [id number] [place] [address] Nov, [facility] [id number] [place] [address] Oct, [facility] [id number] [place] [address] Sep, [facility] [id number] [place] [address] Sep, [facility] [id number] [place] [address] Sep, [facility] [id number] [place] [address] Sep, Orthostatic hypotension I95.1 ; Shortness of breath R06.02 ; Right foot pain M79.671 and Morbid (severe) obesity due to excess calories E66.01 [facility] [id number] [place] [address] Aug, [facility] [address] [facility] [id number] [address] Aug, [facility] [address] [facility] [id number] [address] Aug, [facility] [address] [facility] [id number] [address] Aug, [facility] [address] [facility] [id number] [address] Aug, [facility] [address] [facility] [id number] [address] Jul, [facility] [address] [facility] [id number] [address] Jul, [facility] [address] [facility] [id number] [address] Jul, [facility] [address] [facility] [id number] [address] Jul, [facility] [address] [facility] [id number] [address] Jul, [facility] [address] [facility] [id number] [address] Jul, [facility] [address] [place] [id number] Jul, Hemiplegia affecting left nondominant side G81.94 ; Chronic obstructive pulmonary disease J44.9 and Weakness R53.1 [facility] [address] [facility] [id number] [address] Jul, [facility] [address] [place] [id number] Jul, Weakness R53.1 ; Paroxysmal atrial fibrillation I48.0 and Unsteady gait R26.81 [facility] [address] [facility] [id number] [address] Jul, Tobacco abuse Z72.0 [facility] [address] [place] [id number] Jun, History of acute respiratory failure Z87.09 ; Weight gain R63.5 and Tobacco abuse Z72.0 [place] [address] [place] [address] Jun, [place] [address] [id number] [place] [address] May, Primary insomnia F51.01 [place] [id number] [place] [address] May, Mild episode of recurrent major depressive disorder F33.0 [place] [id number] [place] [address] May, [place] [id number] [place] [address] May, Chronic obstructive pulmonary disease, unspecified COPD type J44.9 ; Primary insomnia F51.01 ; Fatigue, unspecified type R53.83 and Weight gain R63.5 [place] [address] [place] [address] May, Thrush B37.0 [place] [id number] [place] [address] May, Mild episode of recurrent major depressive disorder F33.0 and Generalized anxiety disorder F41.1 [place] [address] [place] [address] May, Thrush B37.0 [place] [address] [place] [address] Apr, Cough R05 [place] [address] [id number] [place] [address] Mar, Mild episode of recurrent major depressive disorder F33.0 [place] [address] [place] [address] Mar, Mild episode of recurrent major depressive disorder F33.0 and Generalized anxiety disorder F41.1 [facility] [id number] [place] [address] Mar, Seasonal allergies J30.2 [facility] [id number] [place] [address] Mar, Seasonal allergies J30.2 [facility] [address] [address] February, Generalized anxiety disorder F41.1 [facility] [id number] [place] [address] February, Cough R05 and Seasonal allergies J30.2 [facility] [id number] [place] [address] February, Generalized anxiety disorder F41.1 and Mild episode of recurrent major depressive disorder F33.0 [facility] [id number] [place] [address] February, 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 ; Anxiety F41.9 ; Panic attacks F41.0 and Irritable bowel syndrome with diarrhea K58.0 [facility] [id number] [place] [address] February, [facility] [id number] [place] [address] Jan, Mixed hyperlipidemia E78.2 [facility] [id number] [place] [address] Jan, [facility] [id number] [place] [address] Jan, [facility] [id number] [place] [address] Jan, [facility] [id number] [place] [address] Jan, [facility] [id number] [place] [address] Dec, [facility] [address] [address] Dec, [facility] [id number] [place] [address] Dec, [facility] [id number] [place] [address] Nov, Dysthymic disorder F34.1 [facility] [id number] [place] [address] Oct, [facility] [address] [address] Oct, [facility] [address] [address] Oct, [facility] [address] [address] Oct, Diarrhea, unspecified type R19.7 and Dysuria R30.0 [facility] [id number] [place] [address] Oct, [facility] [id number] [place] [address] Sep, [facility] [id number] [place] [address] Sep, [facility] [id number] [place] [address] Sep, Anxiety F41.9 [facility] [address] [address] Sep, Cerebrovascular accident (CVA), unspecified mechanism I63.9 ; Mixed hyperlipidemia E78.2 ; Gastroesophageal reflux disease with esophagitis K21.0 and Anxiety F41.9 [facility] [id number] [place] [address] Sep, [place] [id number] [place] [address] Aug, Chronic obstructive pulmonary disease, unspecified J44.9 ; Asthma J45.909 ; Nausea R11.0 ; Dysthymic disorder F34.1 ; Cerebrovascular accident (CVA), unspecified mechanism I63.9 and Rheumatoid arthritis M06.[address] [address] Aug, Nausea R11.0 ; Encounter for immunization Z23 ; Sleep apnea in adult G47.30 ; Rheumatoid arthritis involving multiple sites, unspecified rheumatoid factor presence M06.9 ; Generalized anxiety disorder F41.1 ; Dysthymic disorder F34.1 and Asthma J45.[address] [address] Jul, [address] [address] May, ADHD (attention deficit hyperactivity disorder), combined type F90.2 ; Generalized anxiety disorder F41.1 and Persistent depressive disorder F34.[address] [address] May, Cerebrovascular accident (CVA), unspecified mechanism I63.9 [place] [id number] [place] [address] Apr, Mixed hyperlipidemia E78.2 and Cerebrovascular accident (CVA), unspecified mechanism I63.9 [place] [address] [id number] [place] [address] Apr, Generalized anxiety disorder F41.[address] [address] Apr, Bronchitis J40 and Tobacco use Z72.[address] [address] Apr, Mixed hyperlipidemia E78.2 [facility] [id number] [place] [address] Apr, Other retirement (current) drug therapy Z79.899 [facility] [id number] [place] [address] Apr, [facility] [id number] [place] [address] Apr, Generalized anxiety disorder F41.1 [facility] [id number] [place] [address] Apr, Obstructive sleep apnea G47.33 and Hyperinsulinemia E16.1 [place] [address] [address] Apr, ADHD (attention deficit hyperactivity disorder), combined type F90.2 ; Generalized anxiety disorder F41.1 and Persistent depressive disorder F34.1 [place] [id number] [place] [address] Mar, [place] [id number] [place] [address] Mar, Generalized anxiety disorder F41.1 [place] [id number] [place] [address] Mar, Tarsal tunnel syndrome of both lower extremities G57.53 [place] [address] [id number] [place] [address] February, [facility] [id number] [place] [address] February, [facility] [id number] [place] [address] February, Asthma J45.909 [facility] [id number] [place] [address] February, Generalized anxiety disorder F41.1 [facility] [id number] [place] [address] February, Hypoxemia R09.02 ; Hyperglycemia R73.9 ; Rheumatoid arthritis M06.9 and Generalized anxiety disorder F41.1 [place] [address] [address] February, [place] [address] [address] Jan, Chronic obstructive pulmonary disease, unspecified J44.9 [place] [address] [address] Jan, Chronic pain syndrome G89.4 [place] [address] [address] Jan, Hypoxemia R09.02 [place] [address] [address] Jan, [place] [address] [address] Jan, Chronic obstructive pulmonary disease, unspecified J44.9 ; Hypoxemia R09.02 ; Other insomnia G47.09 and Left anterior shoulder pain M25.512 [place] [address] [address] Jan, Numbness in feet R20.0 and Neuropathy G62.9 [place] [address] [address] Jan, [place] [address] [address] Dec, Acute pain of left shoulder M25.512 [place] [address] [address] Dec, Acute pain of left shoulder M25.512 [place] [address] [address] Dec, Generalized anxiety disorder F41.1 [place] [address] [address] Dec, Generalized anxiety disorder F41.1 [facility] [address] [place] [address] Nov, ADHD (attention deficit hyperactivity disorder), combined type F90.2 ; Generalized anxiety disorder F41.1 and Persistent depressive disorder F34.1 [facility] [id number] [place] [address] Nov, Acute pain of left shoulder M25.512 [facility] [id number] [place] [address] Nov, ADHD (attention deficit hyperactivity disorder), combined type F90.2 ; Generalized anxiety disorder F41.1 and Persistent depressive disorder F34.1 [facility] [id number] [place] [address] Nov, Chronic pain syndrome G89.4 [facility] [id number] [place] [address] Nov, Chronic pain syndrome G89.4 [facility] [id number] [place] [address] Nov, Acute pain of left shoulder M25.512 [facility] [id number] [place] [address] Nov, Generalized anxiety disorder F41.1 [facility] [id number] [place] [address] Nov, Acute pain of left shoulder M25.512 [facility] [address] [place] [address] Nov, ADHD (attention deficit hyperactivity disorder), combined type F90.2 ; Generalized anxiety disorder F41.1 and Persistent depressive disorder F34.1 [facility] [address] [address] Nov, Acute pain of left shoulder M25.512 ; Generalized anxiety disorder F41.1 ; Chronic pain syndrome G89.4 ; Hyperinsulinemia E16.1 ; Pain of left foot M79.672 and Pain in right foot M79.671 [place] [address] [id number] [place] [address] Oct, ADHD (attention deficit hyperactivity disorder), combined type F90.2 ; Generalized anxiety disorder F41.1 and Dysthymic disorder F34.1 [place] [id number] [place] [address] Sep, [place] [id number] [place] [address] Sep, [place] [id number] [place] [address] Sep, Routine gynecological examination V72.31 ; Cervical cancer screening Z12.4 ; Breast cancer screening Z12.39 ; Colon cancer screening Z12.11 ; Hypokalemia E87.6 ; Herpes simplex type 1 infection B00.9 and Abscess of right axilla L02.411 [place] [address] [id number] [place] [address] Sep, [place] [address] [id number] [place] [address] Sep, ADHD (attention deficit hyperactivity disorder), combined type F90.2 ; Generalized anxiety disorder F41.1 and Dysthymic disorder F34.1 [place] [address] [id number] [place] [address] Aug, [place] [address] [id number] [place] [address] Aug, [place] [address] [id number] [place] [address] Aug, Generalized anxiety disorder F41.1 [place] [address] [place] [address] Aug, ADHD (attention deficit hyperactivity disorder), combined type F90.2 ; Generalized anxiety disorder F41.1 and Dysthymic disorder F34.1 [place] [id number] [place] [address] Jul, Chronic pain syndrome G89.4 ; Hypertension I10 ; Hypokalemia E87.6 ; Asthma J45.909 and Nausea R11.0 [place] [address] [address] Jul, [place] [address] [address] Jul, Asthma J45.909 [place] [address] [address] Jul, ADHD (attention deficit hyperactivity disorder), combined type F90.2 ; Generalized anxiety disorder F41.1 and Dysthymic disorder F34.1 [place] [address] [address] Jul, [place] [address] [address] Jul, Hypertension I10 ; Arteriosclerotic coronary artery disease I25.10 ; Mixed hyperlipidemia E78.2 ; Other retirement (current) drug therapy Z79.899 and Hyperglycemia R73.9 [place] [address] [id number] [place] [address] 16 Jun, 2016 Hypokalemia E87.6 and Hyperglycemia R73.9 [place] [id number] [place] [address] 14 Jun, 2016 [place] [address] [address] 13 Jun, 2016 Abnormal kidney function N28.9 [place] [address] [id number] [place] [address] 09 Jun, 2016 [place] [address] [address] Jun, ADHD (attention deficit hyperactivity disorder), combined type F90.2 ; Generalized anxiety disorder F41.1 and Dysthymic disorder F34.1 [place] [address] [address] Jun, Generalized anxiety disorder F41.1 and Dysthymic disorder F34.1 [place] [address] [address] Jun, Hypokalemia E87.6 [place] [address] [address] May, Hypokalemia E87.6 ; Vertigo R42 and Hyperinsulinemia E16.1 [place] [address] [address] May, [place] [address] [address] May, Abnormal kidney function N28.9 ; Hyperinsulinemia E16.1 and Nausea R11.0 [place] [address] [address] May, Hypokalemia E87.6 ; Nausea R11.0 ; Epigastric pain R10.13 ; Dehydration E86.0 ; Diaphoresis R61 and Right arm pain M79.601 [place] [address] [address] May, [place] [address] [address] May, Hypokalemia E87.6 [place] [address] [address] May, Hypokalemia E87.6 [place] [address] [address] Apr, [place] [address] [address] Apr, ADHD (attention deficit hyperactivity disorder), combined type F90.2 ; Generalized anxiety disorder F41.1 and Dysthymic disorder F34.1 [place] [address] [address] [place] [id number] [place] [address] Apr, Right arm pain M79.601 and Hyperinsulinemia E16.1 [place] [address] [place] [id number] [place] [address] Mar, [place] [address] [place] [id number] [place] [address] Mar, [place] [address] [place] [id number] [place] [address] Mar, Hyperinsulinemia E16.1 ; Hyperlipidemia, unspecified hyperlipidemia type E78.5 ; Central venous catheter in place Z78.9 ; Generalized anxiety disorder F41.1 and Urinary tract infection, site not specified N39.0 [place] [id number] [place] [address] Mar, ADHD (attention deficit hyperactivity disorder), combined type F90.2 ; Generalized anxiety disorder F41.1 and Dysthymic disorder F34.1 [place] [id number] [place] [address] February, ADHD (attention deficit hyperactivity disorder), combined type F90.2 ; Generalized anxiety disorder F41.1 and Dysthymic disorder F34.1 [place] [id number] [place] [address] February, [place] [address] [place] [id number] [place] [address] February, [place] [address] [place] [id number] [place] [address] February, Hypertension I10 and Weight gain R63.5 [place] [address] [address] [place] [id number] [place] [address] February, Major depressive disorder, recurrent, moderate F33.1 and Generalized anxiety disorder F41.1 [facility] [id number] [address] February, ADHD (attention deficit hyperactivity disorder), combined type F90.2 ; Generalized anxiety disorder F41.1 and Dysthymic disorder F34.1 [facility] [address] [place] [id number] [place] [address] February, [facility] [address] [place] [id number] [place] [address] February, Asthma J45.909 ; Weight gain R63.5 ; Hypertension I10 ; Rheumatoid arthritis M06.9 and Chronic pain syndrome G89.4 [facility] [id number] [place] [address] Jan, ADHD (attention deficit hyperactivity disorder), combined type F90.2 ; Generalized anxiety disorder F41.1 and Dysthymic disorder F34.1 [facility] [id number] [place] [address] Dec, ADHD (attention deficit hyperactivity disorder), combined type F90.2 ; Generalized anxiety disorder F41.1 and Dysthymic disorder F34.1 [facility] [id number] [place] [address] Dec, [facility] [address] [address] Nov, [facility] [id number] [place] [address] Nov, [facility] [id number] [place] [address] Nov, [facility] [id number] [place] [address] Nov, [facility] [id number] [place] [address] Oct, [facility] [address] [place] [address] Oct, [facility] [address] [address] Oct, [facility] [address] [address] Sep, [facility] [id number] [place] [address] Sep, [facility] [id number] [place] [address] Sep, Agoraphobia with panic disorder F40.01 ; Attention-deficit hyperactivity disorder, combined type F90.2 and Dysthymic disorder F34.1 [facility] [id number] [place] [address] Aug, [facility] [id number] [place] [address] Aug, [facility] [address] [address] Aug, [facility] [id number] [place] [address] Aug, Dysthymic disorder F34.1 ; Generalized anxiety disorder F41.1 and ADHD (attention deficit hyperactivity disorder), combined type F90.2 [facility] [address] [address] Aug, ADHD (attention deficit hyperactivity disorder), combined type F90.2 ; Generalized anxiety disorder F41.1 and Dysthymic disorder F34.1 [facility] [id number] [place] [address] Jul, Urinary tract infection, site not specified N39.0 ; Hypotension, unspecified I95.9 and Breast cancer screening Z12.39 [facility] [address] [address] Jul, [facility] [id number] [address] Jul, [facility] [id number] [place] [address] Jul, Urinary tract infection, site not specified N39.0 ; Nausea R11.0 ; Gastroenteritis K52.9 ; Renal failure N19 and Other hypotension I95.89 [facility] [address] [address] Jul, [facility] [id number] [place] [address] Jul, [facility] [id number] [place] [address] Jul, [facility] [id number] [place] [address] Jun, [facility] [id number] [place] [address] Jun, Major depression in partial remission 296.25 ; Generalized anxiety disorder 300.02 and ADHD, predominantly inattentive type 314.[id number] [place] [address] May, [facility] [id number] [place] [address] Apr, Major depressive disorder, recurrent episode, severe, without mention of psychotic behavior 296.33 ; Agoraphobia with panic disorder 300.21 and Generalized anxiety disorder 300.02 [facility] [id number] [place] [address] Apr, ADHD (attention deficit hyperactivity disorder), combined type 314.01 ; Generalized anxiety disorder 300.02 and Dysthymic disorder 300.4 [facility] [id number] [place] [address] Apr, CAD (coronary artery disease) 414.00 ; HTN (hypertension) 401.9 and Tobacco use 305.1 [id number] [address] Apr, [facility] [id number] [place] [address] Mar, ADHD (attention deficit hyperactivity disorder), combined type 314.01 ; Generalized anxiety disorder 300.02 ; Dysthymic disorder 300.4 ; No condition on [place] V71.09 ; Rheumatoid arthritis 714.0 ; Incontinence 788.30 ; Irritable bowel syndrome 564.1 ; Osteoporosis 733.00 and Chronic pain 338.29 [facility] [id number] [place] [address] Mar, Agoraphobia with panic disorder 300.21 and Major depressive disorder, recurrent episode, moderate 296.32 [facility] [id number] [place] [address] Mar, [facility] [id number] [place] [address] February, [facility] [id number] [place] [address] February, Agoraphobia with panic disorder 300.21 and Major depressive disorder, recurrent episode, moderate 296.32 [facility] [address] [address] February, [facility] [address] [address] Jan, [facility] [id number] [address] Jan, [facility] [id number] [place] [address] Dec, [facility] [id number] [place] [address] Dec, [facility] [address] [address] Dec, [facility] [id number] [place] [address] Dec, [facility] [place] [facility] [address] [id number] [place] [address] Dec, [facility] [place] [facility] [address] [id number] [place] [address] Dec, [facility] [place] [facility] [address] [id number] [place] [address] Nov, 2014 [facility] [place] [facility] [address] [id number] [place] [address] Nov, [facility] [place] [facility] [address] [id number] [place] [address] Nov, [facility] [place] [facility] [address] [id number] [place] [address] Nov, [facility] [place] [facility] [address] [id number] [place] [address] Nov, [facility] [place] [facility] [address] [id number] [place] [address] Nov, [facility] [place] [facility] [address] [facility] [id number] [place] [address] Nov, [facility] [place] [facility] [address] [id number] [place] [address] Nov, [facility] [place] [facility] [address] [id number] [address] Oct, [facility] [place] [facility] [address] [id number] [place] [address] Oct, [facility] [place] [facility] [address] [id number] [place] [address] Oct, [facility] [place] [facility] [address] [id number] [place] [address] Oct, [facility] [place] [facility] [address] [id number] [address] Oct, [facility] [place] [facility] [address] [id number] [place] [address] Oct, [facility] [place] [facility] [address] [id number] [place] [address] Sep, [facility] [place] [facility] [address] [id number] [place] [address] Sep, [facility] [place] [facility] [address] [id number] [place] [address] Sep, [facility] [place] [facility] [address] [id number] [place] [address] Sep, [facility] [place] [facility] [address] [id number] [place] [address] Sep, [facility] [place] [facility] [address] [id number] [place] [address] Sep, [facility] [place] [facility] [address] [id number] [place] [address] Sep, [facility] [place] [facility] [address] [id number] [place] [address] Aug, [facility] [place] [facility] [address] [id number] [place] [address] Aug, [facility] [place] [facility] [address] [id number] [address] Aug, [facility] [place] [facility] [address] [id number] [address] Aug, [facility] [place] [facility] [address] [id number] [place] [address] Aug, [facility] [place] [facility] [address] [id number] [place] [address] Aug, [facility] [place] [facility] [address] [id number] [place] [address] Jul, [facility] [place] [facility] [address] [id number] [place] [address] Jul, [facility] [place] [facility] [address] [id number] [place] [address] Jul, [facility] [place] [facility] [address] [id number] [place] [address] Jul, [facility] [place] [facility] [address] [id number] [place] [address] Jul, [facility] [place] [facility] [address] [id number] [place] [address] Jul, [facility] [place] [facility] [address] [id number] [place] [address] Jun, [facility] [place] [facility] [address] [id number] [place] [address] Jun, [facility] [place] [facility] [address] [id number] [place] [address] May, [facility] [place] [facility] [address] [id number] [place] [address] May, [facility] [place] [facility] [address] [id number] [place] [address] Apr, [facility] [place] [facility] [address] [id number] [place] [address] Apr, [facility] [place] [facility] [address] [id number] [place] [address] Apr, [facility] [place] [facility] [address] [id number] [place] [address] Apr, [facility] [place] [facility] [address] [id number] [place] [address] Mar, [facility] [place] [facility] [address] [id number] [place] [address] Mar, [facility] [place] [facility] [address] [id number] [place] [address] Mar, [facility] [place] [facility] [address] [id number] [place] [address] Mar, [facility] [place] [facility] [address] [id number] [place] [address] February, [facility] [place] [facility] [address] [id number] [place] [address] February, [facility] [place] [facility] [address] [id number] [place] [address] February, [facility] [place] [facility] [address] [id number] [place] [address] February, [facility] [place] [facility] [address] [id number] [place] [address] February, [facility] [place] [facility] [address] [id number] [place] [address] February, [facility] [place] [facility] [address] [id number] [place] [address] Jan, [facility] [place] [facility] [address] [id number] [place] [address] Jan, [facility] [place] [facility] [address] [id number] [place] [address] Dec, [facility] [place] [facility] [address] [id number] [place] [address] Dec, [facility] [place] [facility] [address] [id number] [place] [address] Nov, [facility] [place] [facility] [address] [id number] [place] [address] Nov, [facility] [place] [facility] [address] [id number] [place] [address] Oct, [facility] [place] [facility] [address] [id number] [place] [address] Oct, [facility] [place] [facility] [address] [id number] [place] [address] Oct, [facility] [address] [id number] [place] [address] Oct, [facility] [address] [id number] [place] [address] Sep, [facility] [address] [id number] [place] [address] Sep, [facility] [place] [facility] [address] [id number] [place] [address] Sep, [facility] [address] [id number] [place] [address] Sep, [facility] [address] [id number] [place] [address] Sep, [facility] [address] [id number] [place] [address] Sep, [facility] [address] [id number] [place] [address] Sep, [facility] [address] [id number] [place] [address] Sep, [facility] [address] [id number] [place] [address] Aug, [facility] [address] [id number] [place] [address] Aug, [facility] [place] [facility] [address] [id number] [place] [address] 08 Aug, 2013 [facility] [place] [facility] [address] [id number] [place] [address] 07 Aug, 2013 [facility] [place] [facility] [address] [id number] [place] [address] Aug, [facility] [place] [facility] [address] [id number] [address] 05 Aug, 2013 [facility] [place] [facility] [address] [id number] [place] [address] Aug, [facility] [place] [facility] [address] [id number] [place] [address] Aug, [facility] [place] [facility] [address] [id number] [place] [address] Aug, [facility] [place] [facility] [address] [id number] [place] [address] Jul, [facility] [place] [facility] [address] [id number] [place] [address] Jun, [facility] [place] [facility] [address] [id number] [place] [address] May, [facility] [place] [facility] [address] [id number] [place] [address] May, [facility] [place] [facility] [address] [id number] [place] [address] May, [facility] [place] [facility] [address] [id number] [place] [address] Apr, [facility] [place] [facility] [address] [id number] [place] [address] Mar, [facility] [place] [facility] [address] [id number] [place] [address] February, [facility] [place] [facility] [address] [id number] [place] [address] Oct, [facility] [place] [facility] [address] [id number] [place] [address] 16 Oct, 2012 [facility] [place] [facility] [address] [id number] [place] [address] Oct, [facility] [place] [facility] [address] [id number] [place] [address] Oct, [facility] [place] [facility] [address] [id number] [address] Oct, [facility] [place] [facility] [address] [id number] [place] [address] Oct, [facility] [place] [facility] [address] [id number] [place] [address] Sep, [facility] [place] [facility] [address] [id number] [place] [address] Sep, [facility] [place] [facility] [address] [id number] [place] [address] Aug, [facility] [place] [facility] [address] [id number] [place] [address] Aug, [facility] [place] [facility] [address] [id number] [place] [address] Jul, [facility] [place] [facility] [address] [id number] [place] [address] Jul, [facility] [place] [facility] [address] [id number] [place] [address] Jul, [facility] [place] [facility] [address] [id number] [place] [address] Jul, [facility] [place] [facility] [address] [id number] [place] [address] Jul, [facility] [place] [facility] [address] [id number] [place] [address] Jul, [facility] [place] [facility] [address] [id number] [place] [address] Jul, [facility] [place] [facility] [address] [id number] [place] [address] Jul, [facility] [place] [facility] [address] [facility] [id number] [place] [address] 16 Jun, 2012 [facility] [place] [facility] [address] [id number] [place] [address] 03 Jun, 2012 [facility] [place] [facility] [address] [id number] [place] [address] May, [facility] [address] [id number] [place] [address] Apr, [facility] [place] [facility] [address] [id number] [place] [address] Mar, [facility] [address] [id number] [place] [address] Mar, [facility] [place] [facility] [address] [id number] [place] [address] Mar, [facility] [address] [id number] [place] [address] Mar, [facility] [place] [facility] [address] [id number] [place] [address] Jan, [facility] [address] [id number] [place] [address] Nov, [facility] [address] [id number] [place] [address] Nov, [facility] [place] [facility] [address] [id number] [place] [address] Nov, [facility] [address] [id number] [place] [address] Oct, [facility] [address] [id number] [place] [address] Sep, [facility] [place] [facility] [address] [id number] [place] [address] Sep, [facility] [place] [facility] [address] [id number] [place] [address] Aug, [facility] [place] [facility] [address] [id number] [place] [address] Aug, [facility] [place] [facility] [address] [id number] [place] [address] Aug, [facility] [address] [address] Aug, [facility] [address] [address] Jul, [facility] [address] [address] May, [facility] [id number] [place] [phone] Jan, [facility] [id number] [place] [phone] Nov, [facility] [id number] [place] [phone] Apr, [facility] [id number] [address] Dec, [facility] [id number] [address] Nov, IMMUNIZATIONS No Known Immunizations SOCIAL HISTORY Never Assessed REASON FOR VISIT EMR-[facility] PLAN OF CARE VITAL SIGNS MEDICATIONS Unknown Medications RESULTS No Results PROCEDURES No Known procedures INSTRUCTIONS MEDICATIONS ADMINISTERED No Known Medications MEDICAL (GENERAL) HISTORY Type Description Date Medical History Cardiovascular z[facility]ougbn[id number], non-obstructive per (01/2011) Dr. Mendoza Medical History Stress test 03/07/13-Dr. Kelly Dietrich normal Medical History Hypertension Medical History Asthma Medical History Gastrointestinal Disorder--IBS, GERD, Hx of fatty liver Medical History Hernia 1979 Medical History Cervical dysplasia 02/16-Pap LGSIL/[place]-mild dysplasia Medical History Hyperlipidemia Medical History Rheumatoid [...] 07/10/15-07/11/2015 Hospitalization History Symptomatic Hypokalemia/Nause-[facility]ia [facility] 05/13/16 Hospitalization History Stroke 05/03/2017 Hospitalization History stroke 08/24/2017--09/01/2017
--- OUTSIDE RECORDS SUMMARY | 2019-05-22 07:38 | XMS REPORT ---
Author Author LORI SNOWDEN [facility] [address] Address [address] [place] [address] Care Team Providers Care Drill Press Set Up Operator Name Role Phone LORI SNOWDEN Unavailable PROBLEMS Type Condition ICD9-CM Code [id number] Code Onset Dates Condition Status SNOMED Code Problem Hemiparesis of left nondominant side as late effect of cerebral infarction I69.354 Active 103269594 Problem Morbid (severe) obesity due to excess calories E66.01 Active 487353746 Problem Generalized anxiety disorder F41.1 Active 60717271 Problem ADHD (attention deficit hyperactivity disorder), combined type F90.2 Active 02430010 Problem Chronic pain syndrome G89.4 Active 751066057 Problem Rheumatoid arthritis M06.9 Active 85185443 Problem Gastroesophageal reflux disease with esophagitis K21.0 Active 238217673 Problem Asthma J45.909 Active 967465141 Problem Anxiety F41.9 Active 06177404 Problem Hypertension I10 Active 14758244 Problem Irritable bowel syndrome with diarrhea K58.0 Active 117567607 Problem Mild episode of recurrent major depressive disorder F33.0 Active 531123999 Problem Panic attacks F41.0 Active 401884271 Problem Hemiplegia affecting left nondominant side G81.94 Active Problem Chronic obstructive pulmonary disease J44.9 Active 77978211 Problem Hyperinsulinemia E16.1 Active 72770177 Problem Mixed hyperlipidemia E78.2 Active 957824370 Problem Arteriosclerotic coronary artery disease I25.10 Active 86350679 Problem Primary insomnia F51.01 Active 0061138 Problem Seasonal allergies J30.2 Active 673812263 Problem Unsteady gait R26.81 Active 36508443 Problem Paroxysmal atrial fibrillation I48.0 Active 959569181 Problem Obstructive sleep apnea G47.33 Active 34234889 Problem Other mcc (current) drug therapy Z79.899 Active 726017899 Problem Neuropathy G62.9 Active 755599188 Problem Other insomnia G47.09 Active 990002359 Problem Sleep apnea in adult G47.30 Active 60030877 Problem Rheumatoid arthritis involving multiple sites, unspecified rheumatoid factor presence M06.9 Active 474206483 Problem Cerebrovascular accident (CVA), unspecified mechanism I63.9 Active 160407521 Problem Dysthymic disorder F34.1 Active 77787225 ALLERGIES No Information ENCOUNTERS Encounter Location Date Diagnosis [facility] [id number] [place] [address] Sep, [facility] [address] [address] Sep, [facility] [address] [address] Sep, Orthostatic hypotension I95.1 ; Shortness of breath R06.02 ; Right foot pain M79.671 and Morbid (severe) obesity due to excess calories E66.01 [facility] [address] [address] Aug, [facility] [id number] [place] [address] Aug, [facility] [address] [address] 14 Aug, 2018 [facility] [id number] [place] [address] 13 Aug, 2018 [facility] [id number] [place] [address] Aug, [facility] [id number] [place] [address] Jul, [facility] [address] [address] Jul, [facility] [id number] [place] [address] Jul, [facility] [address] [address] Jul, [place] [address] [address] Jul, [place] [id number] [place] [address] Jul, [facility] [address] [place] [id number] Jul, Hemiplegia affecting left nondominant side G81.94 ; Chronic obstructive pulmonary disease J44.9 and Weakness R53.1 [place] [id number] [place] [address] Jul, [facility] [address] [place] [id number] Jul, Weakness R53.1 ; Paroxysmal atrial fibrillation I48.0 and Unsteady gait R26.81 [place] [id number] [place] [address] Jul, Tobacco abuse Z72.0 [facility] [address] [place] [id number] Jun, History of acute respiratory failure Z87.09 ; Weight gain R63.5 and Tobacco abuse Z72.0 [place] [id number] [place] [address] Jun, [place] [id number] [place] [address] May, Primary insomnia F51.01 [facility] [id number] [place] [address] May, Mild episode of recurrent major depressive disorder F33.0 [place] [id number] [place] [address] May, [facility] [id number] [place] [address] May, Chronic obstructive pulmonary disease, unspecified COPD type J44.9 ; Primary insomnia F51.01 ; Fatigue, unspecified type R53.83 and Weight gain R63.5 [place] [address] [address] May, Thrush B37.0 [facility] [id number] [place] [address] May, Mild episode of recurrent major depressive disorder F33.0 and Generalized anxiety disorder F41.1 [facility] [id number] [place] [address] May, Thrush B37.0 [facility] [id number] [place] [address] Apr, Cough R05 [facility] [id number] [place] [address] Mar, Mild episode of recurrent major depressive disorder F33.0 [facility] [id number] [place] [address] Mar, Mild episode of recurrent major depressive disorder F33.0 and Generalized anxiety disorder F41.1 [place] [id number] [place] [address] Mar, Seasonal allergies J30.2 [facility] [id number] [place] [address] Mar, Seasonal allergies J30.2 [facility] [id number] [place] [address] February, Generalized anxiety disorder F41.1 [facility] [id number] [place] [address] February, Cough R05 and Seasonal allergies J30.2 [facility] [id number] [place] [address] February, Generalized anxiety disorder F41.1 and Mild episode of recurrent major depressive disorder F33.0 [facility] [address] [place] [address] February, Other mcc (current) drug therapy Z79.899 ; Anxiety F41.9 ; Panic attacks F41.0 and Irritable bowel syndrome with diarrhea K58.0 [facility] [id number] [place] [address] February, [facility] [id number] [place] [address] Jan, Mixed hyperlipidemia E78.2 [facility] [address] [address] Jan, [facility] [id number] [place] [address] Jan, [facility] [address] [address] Jan, [facility] [address] [address] Jan, [facility] [id number] [place] [address] Dec, [facility] [id number] [place] [address] Dec, [facility] [id number] [place] [address] Dec, [facility] [id number] [place] [address] Nov, Dysthymic disorder F34.1 [facility] [id number] [place] [address] Oct, [facility] [id number] [place] [address] Oct, [facility] [id number] [place] [address] Oct, [facility] [id number] [place] [address] Oct, Diarrhea, unspecified type R19.7 and Dysuria R30.0 [place] [id number] [place] [address] Oct, [facility] [id number] [place] [address] Sep, [place] [id number] [place] [address] Sep, [facility] [facility] [id number] [place] [address] Sep, Anxiety F41.9 [address] [address] [id number] [place] [address] Sep, Cerebrovascular accident (CVA), unspecified mechanism I63.9 ; Mixed hyperlipidemia E78.2 ; Gastroesophageal reflux disease with esophagitis K21.0 and Anxiety F41.9 [place] [id number] [place] [address] Sep, [facility] [facility] [id number] [place] [address] Aug, Chronic obstructive pulmonary disease, unspecified J44.9 ; Asthma J45.909 ; Nausea R11.0 ; Dysthymic disorder F34.1 ; Cerebrovascular accident (CVA), unspecified mechanism I63.9 and Rheumatoid arthritis M06.9 [place] [id number] [place] [address] Aug, Nausea R11.0 ; Encounter for immunization Z23 ; Sleep apnea in adult G47.30 ; Rheumatoid arthritis involving multiple sites, unspecified rheumatoid factor presence M06.9 ; Generalized anxiety disorder F41.1 ; Dysthymic disorder F34.1 and Asthma J45.909 [place] [id number] [place] [address] Jul, [place] [facility] [id number] [place] [address] May, ADHD (attention deficit hyperactivity disorder), combined type F90.2 ; Generalized anxiety disorder F41.1 and Persistent depressive disorder F34.1 [place] [id number] [place] [address] May, Cerebrovascular accident (CVA), unspecified mechanism I63.9 [place] [id number] [place] [address] Apr, Mixed hyperlipidemia E78.2 and Cerebrovascular accident (CVA), unspecified mechanism I63.9 [place] [id number] [place] [address] Apr, Generalized anxiety disorder F41.1 [place] [address] [address] Apr, Bronchitis J40 and Tobacco use Z72.0 [place] [address] [address] Apr, Mixed hyperlipidemia E78.2 [place] [address] [address] Apr, Other terminal superintendent (current) drug therapy Z79.899 [place] [id number] [place] [address] Apr, [place] [id number] [place] [address] Apr, Generalized anxiety disorder F41.1 [place] [address] [address] Apr, Obstructive sleep apnea G47.33 and Hyperinsulinemia E16.1 [place] [address] [address] Apr, ADHD (attention deficit hyperactivity disorder), combined type F90.2 ; Generalized anxiety disorder F41.1 and Persistent depressive disorder F34.1 [place] [id number] [place] [address] Mar, [place] [id number] [address] 15 Mar, 2017 Generalized anxiety disorder F41.1 [facility] [id number] [place] [address] Mar, Tarsal tunnel syndrome of both lower extremities G57.53 [facility] [id number] [place] [address] February, [facility] [id number] [place] [address] February, [facility] [id number] [place] [address] February, Asthma J45.909 [facility] [id number] [place] [address] February, Generalized anxiety disorder F41.1 [place] [id number] [place] [address] February, Hypoxemia R09.02 ; Hyperglycemia R73.9 ; Rheumatoid arthritis M06.9 and Generalized anxiety disorder F41.1 [place] [id number] [place] [address] February, [facility] [id number] [place] [address] Jan, Chronic obstructive pulmonary disease, unspecified J44.9 [facility] [id number] [place] [address] Jan, Chronic pain syndrome G89.4 [facility] [id number] [place] [address] Jan, Hypoxemia R09.02 [facility] [id number] [place] [address] Jan, [facility] [id number] [place] [address] Jan, Chronic obstructive pulmonary disease, unspecified J44.9 ; Hypoxemia R09.02 ; Other insomnia G47.09 and Left anterior shoulder pain M25.512 [place] [id number] [place] [address] 07 Jan, 2017 Numbness in feet R20.0 and Neuropathy G62.9 [place] [id number] [place] [address] Jan, [place] [address] [address] Dec, Acute pain of left shoulder M25.512 [place] [id number] [place] [address] Dec, Acute pain of left shoulder M25.512 [place] [id number] [place] [address] Dec, Generalized anxiety disorder F41.1 [place] [address] [address] Dec, Generalized anxiety disorder F41.1 [place] [id number] [place] [address] Nov, ADHD (attention deficit hyperactivity disorder), combined type F90.2 ; Generalized anxiety disorder F41.1 and Persistent depressive disorder F34.1 [place] [id number] [place] [address] Nov, Acute pain of left shoulder M25.512 [place] [id number] [place] [address] Nov, ADHD (attention deficit hyperactivity disorder), combined type F90.2 ; Generalized anxiety disorder F41.1 and Persistent depressive disorder F34.1 [place] [id number] [place] [address] Nov, Chronic pain syndrome G89.4 [place] [id number] [place] [address] Nov, Chronic pain syndrome G89.4 [place] [id number] [place] [address] Nov, Acute pain of left shoulder M25.512 [facility] [address] [place] [address] Nov, Generalized anxiety disorder F41.1 [place] [id number] [place] [address] Nov, Acute pain of left shoulder M25.512 [place] [id number] [place] [address] Nov, ADHD (attention deficit hyperactivity disorder), combined type F90.2 ; Generalized anxiety disorder F41.1 and Persistent depressive disorder F34.1 [place] [id number] [place] [address] Nov, Acute pain of left shoulder M25.512 ; Generalized anxiety disorder F41.1 ; Chronic pain syndrome G89.4 ; Hyperinsulinemia E16.1 ; Pain of left foot M79.672 and Pain in right foot M79.671 [place] [id number] [place] [address] Oct, ADHD (attention deficit hyperactivity disorder), combined type F90.2 ; Generalized anxiety disorder F41.1 and Dysthymic disorder F34.1 [place] [address] [place] [address] Sep, [place] [id number] [place] [address] Sep, [place] [id number] [place] [address] Sep, Routine gynecological examination V72.31 ; Cervical cancer screening Z12.4 ; Breast cancer screening Z12.39 ; Colon cancer screening Z12.11 ; Hypokalemia E87.6 ; Herpes simplex type 1 infection B00.9 and Abscess of right axilla L02.411 [place] [address] [address] Sep, [facility] [id number] [place] [address] Sep, ADHD (attention deficit hyperactivity disorder), combined type F90.2 ; Generalized anxiety disorder F41.1 and Dysthymic disorder F34.1 [facility] [id number] [place] [address] Aug, [facility] [id number] [place] [address] Aug, [facility] [id number] [place] [address] Aug, Generalized anxiety disorder F41.1 [facility] [id number] [place] [address] Aug, ADHD (attention deficit hyperactivity disorder), combined type F90.2 ; Generalized anxiety disorder F41.1 and Dysthymic disorder F34.1 [facility] [id number] [place] [address] Jul, Chronic pain syndrome G89.4 ; Hypertension I10 ; Hypokalemia E87.6 ; Asthma J45.909 and Nausea R11.0 [facility] [address] [address] Jul, [facility] [id number] [place] [address] Jul, Asthma J45.909 [facility] [address] [address] Jul, ADHD (attention deficit hyperactivity disorder), combined type F90.2 ; Generalized anxiety disorder F41.1 and Dysthymic disorder F34.1 [facility] [address] [address] Jul, [facility] [id number] [place] [address] Jul, Hypertension I10 ; Arteriosclerotic coronary artery disease I25.10 ; Mixed hyperlipidemia E78.2 ; Other terminal superintendent (current) drug therapy Z79.899 and Hyperglycemia R73.9 [place] [address] [address] 16 Jun, 2016 Hypokalemia E87.6 and Hyperglycemia R73.9 [place] [address] [address] 14 Jun, 2016 [place] [address] [address] 13 Jun, 2016 Abnormal kidney function N28.9 [place] [address] [address] Jun, [place] [address] [address] Jun, ADHD (attention deficit hyperactivity disorder), combined type F90.2 ; Generalized anxiety disorder F41.1 and Dysthymic disorder F34.1 [place] [address] [address] Jun, Generalized anxiety disorder F41.1 and Dysthymic disorder F34.1 [place] [address] [address] Jun, Hypokalemia E87.6 [place] [address] [address] May, Hypokalemia E87.6 ; Vertigo R42 and Hyperinsulinemia E16.1 [place] [address] [address] May, [place] [address] [address] May, Abnormal kidney function N28.9 ; Hyperinsulinemia E16.1 and Nausea R11.0 [place] [id number] [place] [address] May, Hypokalemia E87.6 ; Nausea R11.0 ; Epigastric pain R10.13 ; Dehydration E86.0 ; Diaphoresis R61 and Right arm pain M79.601 [place] [id number] [place] [address] May, [place] [address] [address] May, Hypokalemia E87.6 [place] [id number] [place] [address] May, Hypokalemia E87.6 [place] [id number] [place] [address] Apr, [place] [address] [address] Apr, ADHD (attention deficit hyperactivity disorder), combined type F90.2 ; Generalized anxiety disorder F41.1 and Dysthymic disorder F34.1 [place] [id number] [place] [address] Apr, Right arm pain M79.601 and Hyperinsulinemia E16.1 [place] [id number] [place] [address] Mar, [place] [id number] [place] [address] Mar, [place] [id number] [place] [address] Mar, Hyperinsulinemia E16.1 ; Hyperlipidemia, unspecified hyperlipidemia type E78.5 ; Central venous catheter in place Z78.9 ; Generalized anxiety disorder F41.1 and Urinary tract infection, site not specified N39.0 [place] [id number] [place] [address] Mar, ADHD (attention deficit hyperactivity disorder), combined type F90.2 ; Generalized anxiety disorder F41.1 and Dysthymic disorder F34.1 [place] [id number] [place] [address] February, ADHD (attention deficit hyperactivity disorder), combined type F90.2 ; Generalized anxiety disorder F41.1 and Dysthymic disorder F34.1 [place] [id number] [place] [address] February, [place] [id number] [place] [address] February, [place] [address] [address] February, Hypertension I10 and Weight gain R63.5 [place] [id number] [place] [address] February, Major depressive disorder, recurrent, moderate F33.1 and Generalized anxiety disorder F41.1 [place] [id number] [place] [phone] February, ADHD (attention deficit hyperactivity disorder), combined type F90.2 ; Generalized anxiety disorder F41.1 and Dysthymic disorder F34.1 [place] [id number] [place] [phone] February, [place] [id number] [place] [phone] February, Asthma J45.909 ; Weight gain R63.5 ; Hypertension I10 ; Rheumatoid arthritis M06.9 and Chronic pain syndrome G89.4 [place] [id number] [place] [phone] Jan, ADHD (attention deficit hyperactivity disorder), combined type F90.2 ; Generalized anxiety disorder F41.1 and Dysthymic disorder F34.1 [place] [id number] [place] [phone] Dec, ADHD (attention deficit hyperactivity disorder), combined type F90.2 ; Generalized anxiety disorder F41.1 and Dysthymic disorder F34.1 [facility] [id number] [place] [phone] Dec, [facility] [id number] [address] Nov, [facility] [id number] [place] [phone] Nov, [facility] [id number] [place] [phone] Nov, [facility] [id number] [place] [phone] Nov, [facility] [id number] [place] [phone] Oct, [facility] [id number] [place] [phone] Oct, [facility] [address] [id number] [place] [address] Oct, [facility] [id number] [place] [address] Sep, [facility] [id number] [address] Sep, [facility] [id number] [place] [address] Sep, Agoraphobia with panic disorder F40.01 ; Attention-deficit hyperactivity disorder, combined type F90.2 and Dysthymic disorder F34.1 [facility] [id number] [place] [address] Aug, [facility] [id number] [address] Aug, [facility] [id number] [place] [address] Aug, [facility] [id number] [address] Aug, Dysthymic disorder F34.1 ; Generalized anxiety disorder F41.1 and ADHD (attention deficit hyperactivity disorder), combined type F90.2 [facility] [id number] [address] Aug, ADHD (attention deficit hyperactivity disorder), combined type F90.2 ; Generalized anxiety disorder F41.1 and Dysthymic disorder F34.1 [facility] [id number] [address] Jul, Urinary tract infection, site not specified N39.0 ; Hypotension, unspecified I95.9 and Breast cancer screening Z12.39 [facility] [id number] [address] Jul, [facility] [id number] [address] Jul, [facility] [id number] [address] Jul, Urinary tract infection, site not specified N39.0 ; Nausea R11.0 ; Gastroenteritis K52.9 ; Renal failure N19 and Other hypotension I95.89 [facility] [id number] [address] Jul, [facility] [id number] [address] Jul, [facility] [id number] [address] Jul, [facility] [id number] [address] Jun, [facility] [id number] [address] Jun, Major depression in partial remission 296.25 ; Generalized anxiety disorder 300.02 and ADHD, predominantly inattentive type 314.01 [address] [id number] [place] [address] May, [place] [id number] [place] [address] Apr, Major depressive disorder, recurrent episode, severe, without mention of psychotic behavior 296.33 ; Agoraphobia with panic disorder 300.21 and Generalized anxiety disorder 300.02 [place] [id number] [place] [address] Apr, ADHD (attention deficit hyperactivity disorder), combined type 314.01 ; Generalized anxiety disorder 300.02 and Dysthymic disorder 300.4 [id number] [place] [address] Apr, CAD (coronary artery disease) 414.00 ; HTN (hypertension) 401.9 and Tobacco use 305.1 [id number] [place] [address] Apr, [place] [id number] [place] [address] Mar, ADHD (attention deficit hyperactivity disorder), combined type 314.01 ; Generalized anxiety disorder 300.02 ; Dysthymic disorder 300.4 ; No condition on [place] II V71.09 ; Rheumatoid arthritis 714.0 ; Incontinence 788.30 ; Irritable bowel syndrome 564.1 ; Osteoporosis 733.00 and Chronic pain 338.29 [place] [id number] [place] [address] Mar, Agoraphobia with panic disorder 300.21 and Major depressive disorder, recurrent episode, moderate 296.32 [id number] [place] [address] Mar, [place] [id number] [place] [address] February, [place] [id number] [place] [address] February, Agoraphobia with panic disorder 300.21 and Major depressive disorder, recurrent episode, moderate 296.32 [facility] [id number] [address] February, [facility] [id number] [address] Jan, [facility] [id number] [address] Jan, [facility] [id number] [address] Dec, [facility] [id number] [address] Dec, [facility] [id number] [address] Dec, [facility] [id number] [address] Dec, [facility] [id number] [address] Dec, [facility] [id number] [address] Dec, [facility] [id number] [address] Nov, [facility] [id number] [address] Nov, [facility] [id number] [address] Nov, [facility] [id number] [address] Nov, [facility] [place] [facility] [id number] [address] Nov, [facility] [id number] [place] [address] 17 Nov, 2014 [facility] [address] [id number] [place] [address] Nov, 2014 [facility] [place] [facility] [address] [id number] [place] [address] Nov, [facility] [place] [facility] [address] [id number] [place] [address] Oct, [facility] [place] [facility] [address] [id number] [place] [address] Oct, [facility] [place] [facility] [address] [id number] [place] [address] Oct, [facility] [place] [facility] [address] [id number] [place] [address] Oct, [facility] [place] [facility] [address] [id number] [place] [address] Oct, [facility] [address] [id number] [place] [address] Oct, [facility] [place] [facility] [address] [id number] [place] [address] Sep, [facility] [address] [id number] [place] [address] Sep, [facility] [place] [facility] [address] [id number] [place] [address] Sep, [facility] [place] [facility] [address] [id number] [place] [address] Sep, [facility] [place] [facility] [address] [id number] [place] [address] Sep, [facility] [place] [facility] [address] [id number] [place] [address] Sep, [facility] [place] [facility] [address] [id number] [place] [address] Sep, [facility] [place] [facility] [address] [id number] [place] [address] Aug, [facility] [place] [facility] [address] [id number] [place] [address] Aug, [facility] [place] [facility] [address] [id number] [place] [address] Aug, [facility] [place] [facility] [address] [id number] [place] [address] Aug, [facility] [place] [facility] [address] [id number] [place] [address] Aug, [facility] [place] [facility] [address] [id number] [place] [address] Aug, [facility] [place] [facility] [address] [id number] [place] [address] Jul, [facility] [place] [facility] [address] [id number] [place] [address] Jul, [facility] [place] [facility] [address] [id number] [place] [address] Jul, [facility] [place] [facility] [address] [id number] [place] [address] Jul, [facility] [place] [facility] [address] [id number] [place] [address] Jul, [facility] [place] [facility] [address] [id number] [address] Jul, [facility] [place] [facility] [address] [id number] [place] [address] Jun, [facility] [place] [facility] [address] [id number] [place] [address] Jun, [facility] [place] [facility] [address] [id number] [place] [address] May, [facility] [place] [facility] [address] [id number] [place] [address] May, [facility] [place] [facility] [address] [id number] [place] [address] Apr, [facility] [place] [facility] [address] [id number] [place] [address] Apr, [facility] [place] [facility] [address] [id number] [place] [address] Apr, [facility] [place] [facility] [address] [id number] [place] [address] Apr, [facility] [place] [facility] [address] [id number] [place] [address] Mar, [facility] [place] [facility] [address] [id number] [place] [address] Mar, [facility] [place] [facility] [address] [id number] [place] [address] Mar, [facility] [place] [facility] [address] [id number] [place] [address] Mar, [facility] [place] [facility] [address] [id number] [place] [address] February, [facility] [place] [facility] [address] [id number] [place] [address] February, [facility] [place] [facility] [address] [id number] [place] [address] February, [facility] [place] [facility] [address] [id number] [place] [address] February, [facility] [place] [facility] [address] [id number] [place] [address] February, [facility] [place] [facility] [address] [id number] [place] [address] February, [facility] [place] [facility] [address] [id number] [place] [address] Jan, [facility] [place] [facility] [address] [id number] [place] [address] Jan, [facility] [place] [facility] [address] [id number] [place] [address] Dec, [facility] [place] [facility] [address] [id number] [place] [address] Dec, [facility] [place] [facility] [address] [id number] [place] [address] Nov, [facility] [place] [facility] [address] [id number] [place] [address] Nov, [facility] [place] [facility] [address] [id number] [place] [address] Oct, [facility] [place] [facility] [address] [id number] [place] [address] Oct, [facility] [place] [facility] [address] [id number] [place] [address] Oct, [facility] [place] [facility] [address] [id number] [place] [address] Oct, [facility] [place] [facility] [address] [id number] [place] [address] Sep, [facility] [place] [facility] [address] [id number] [place] [address] Sep, [facility] [place] [facility] [address] [id number] [place] [address] Sep, [facility] [place] [facility] [address] [id number] [place] [address] Sep, [facility] [place] [facility] [address] [id number] [place] [address] Sep, [facility] [place] [facility] [address] [id number] [place] [address] Sep, [facility] [place] [facility] [address] [id number] [address] Sep, [facility] [place] [facility] [address] [id number] [place] [address] Sep, [facility] [place] [facility] [address] [id number] [place] [address] Aug, [facility] [place] [facility] [address] [id number] [place] [address] Aug, [facility] [place] [facility] [address] [id number] [place] [address] Aug, [facility] [place] [facility] [address] [id number] [place] [address] Aug, [facility] [place] [facility] [address] [id number] [place] [address] Aug, [facility] [place] [facility] [address] [id number] [place] [address] Aug, [facility] [place] [facility] [address] [id number] [place] [address] Aug, [facility] [place] [facility] [address] [id number] [place] [address] Aug, [facility] [place] [facility] [address] [id number] [place] [address] Aug, [facility] [place] [facility] [address] [id number] [address] Jul, [facility] [place] [facility] [address] [id number] [address] Jun, [facility] [place] [facility] [address] [id number] [place] [address] May, [facility] [place] [facility] [address] [id number] [address] May, [facility] [place] [facility] [address] [id number] [address] May, [facility] [place] [facility] [address] [id number] [place] [address] Apr, [facility] [address] [id number] [place] [address] Mar, [facility] [address] [id number] [place] [address] February, [facility] [address] [id number] [place] [address] Oct, [facility] [address] [id number] [place] [address] Oct, [facility] [address] [id number] [place] [address] Oct, [facility] [address] [id number] [place] [address] Oct, [facility] [address] [id number] [place] [address] Oct, [facility] [address] [id number] [place] [address] Oct, [facility] [address] [id number] [place] [address] Sep, [facility] [address] [id number] [place] [address] Sep, [facility] [address] [id number] [place] [address] Aug, [facility] [address] [id number] [place] [address] Aug, [facility] [address] [id number] [place] [address] Jul, [facility] [address] [id number] [place] [address] Jul, [facility] [address] [id number] [place] [address] Jul, [facility] [place] [facility] [address] [id number] [place] [address] Jul, [facility] [place] [facility] [address] [id number] [place] [address] Jul, [facility] [place] [facility] [address] [id number] [place] [address] Jul, [facility] [place] [facility] [address] [id number] [place] [address] Jul, [facility] [place] [facility] [address] [id number] [place] [address] Jul, [facility] [place] [facility] [address] [id number] [place] [address] Jun, [facility] [place] [facility] [address] [id number] [place] [address] Jun, [facility] [place] [facility] [address] [id number] [place] [address] May, [facility] [place] [facility] [address] [id number] [place] [address] Apr, [facility] [place] [facility] [address] [facility] [id number] [address] Mar, [facility] [place] [facility] [address] [facility] [id number] [address] Mar, [facility] [place] [facility] [address] [id number] [place] [address] Mar, [facility] [place] [facility] [address] [id number] [place] [address] Mar, [facility] [place] [facility] [address] [id number] [address] Jan, [facility] [place] [facility] [address] [facility] [id number] [address] Nov, [facility] [place] [facility] [address] [id number] [address] Nov, [facility] [address] [facility] [id number] [place] [address] Nov, [facility] [address] [facility] [id number] [place] [address] Oct, [facility] [address] [facility] [id number] [place] [address] Sep, [facility] [address] [facility] [id number] [place] [address] Sep, [facility] [address] [facility] [id number] [place] [address] Aug, [facility] [address] [facility] [id number] [place] [address] Aug, [facility] [id number] [place] [address] Aug, [facility] [address] [facility] [id number] [place] [address] Aug, [facility] [id number] [place] [address] Jul, [facility] [id number] [address] May, [facility] [id number] [address] Jan, [facility] [address] [facility] [id number] [address] Nov, [facility] [address] [facility] [id number] [address] Apr, [facility] [address] [facility] [id number] [address] Dec, [facility] [address] [facility] [id number] [address] Nov, IMMUNIZATIONS No Known Immunizations SOCIAL HISTORY Never Assessed REASON FOR VISIT Order Request PLAN OF CARE VITAL SIGNS MEDICATIONS Unknown Medications RESULTS No Results PROCEDURES No Known procedures INSTRUCTIONS MEDICATIONS ADMINISTERED No Known Medications MEDICAL (GENERAL) HISTORY Type Description Date Medical History Cardiovascular qmwzimwe-QKA-Vcdjxryh, non-obstructive per (01/2011) Dr. Mendoza Medical History Stress test 03/07/13-Dr. Kelly Dietrich normal Medical History Hypertension Medical History Asthma Medical History Gastrointestinal Disorder--IBS, GERD, Hx of fatty liver Medical History Hernia 1979 Medical History Cervical dysplasia 02/16-Pap LGSIL/Ambler-mild dysplasia Medical History Hyperlipidemia Medical History Rheumatoid [...] Kidney injury 07/10/15-07/11/2015 Hospitalization History Symptomatic Hypokalemia/Nause-[facility]ia [facility] 05/13/16 Hospitalization History Stroke 05/03/2017 Hospitalization History stroke 08/24/2017--09/01/2017
--- OUTSIDE RECORDS SUMMARY | 2019-05-22 07:38 | XMS REPORT ---
Author Author LORI SNOWDEN [facility] Address [address] [place] [address] Care Team Providers Care Pick Up Worker Name Role Phone LORI SNOWDEN Unavailable PROBLEMS Type Condition ICD9-CM Code CMX84-ST Code Onset Dates Condition Status SNOMED Code Problem Hemiparesis of left nondominant side as late effect of cerebral infarction I69.354 Active 189061706 Problem Morbid (severe) obesity due to excess calories E66.01 Active 516240208 Problem Generalized anxiety disorder F41.1 Active 97153019 Problem ADHD (attention deficit hyperactivity disorder), combined type F90.2 Active 37136603 Problem Chronic pain syndrome G89.4 Active 377134428 Problem Rheumatoid arthritis M06.9 Active 61601454 Problem Gastroesophageal reflux disease with esophagitis K21.0 Active 480115155 Problem Asthma J45.909 Active 430347146 Problem Anxiety F41.9 Active 79167616 Problem Hypertension I10 Active 76948828 Problem Irritable bowel syndrome with diarrhea K58.0 Active 503937243 Problem Mild episode of recurrent major depressive disorder F33.0 Active 992648116 Problem Panic attacks F41.0 Active 492087923 Problem Hemiplegia affecting left nondominant side G81.94 Active Problem Chronic obstructive pulmonary disease J44.9 Active 37868190 Problem Hyperinsulinemia E16.1 Active 30706151 Problem Mixed hyperlipidemia E78.2 Active 403483687 Problem Arteriosclerotic coronary artery disease I25.10 Active 36040887 Problem Primary insomnia F51.01 Active 9831178 Problem Seasonal allergies J30.2 Active 959303462 Problem Unsteady gait R26.81 Active 34135528 Problem Paroxysmal atrial fibrillation I48.0 Active 739285205 Problem Obstructive sleep apnea G47.33 Active 85556827 Problem Other alf (current) drug therapy Z79.899 Active 042677483 Problem Neuropathy G62.9 Active 939477226 Problem Other insomnia G47.09 Active 958473541 Problem Sleep apnea in adult G47.30 Active 96135462 Problem Rheumatoid arthritis involving multiple sites, unspecified rheumatoid factor presence M06.9 Active 708392833 Problem Cerebrovascular accident (CVA), unspecified mechanism I63.9 Active 885522679 Problem Dysthymic disorder F34.1 Active 63561008 ALLERGIES No Information ENCOUNTERS Encounter Location Date Diagnosis [facility] [place] [facility] [id number] [place] [address] Sep, [facility] [place] [facility] [address] [address] Sep, [facility] [place] [facility] [address] [address] Sep, [facility] [place] [facility] [address] [address] Sep, Orthostatic hypotension I95.1 ; Shortness of breath R06.02 ; Right foot pain M79.671 and Morbid (severe) obesity due to excess calories E66.01 [facility] [place] [facility] [id number] [place] [address] 28 Aug, 2018 [facility] [place] [facility] [address] [address] 21 Aug, 2018 [facility] [place] [facility] [id number] [place] [address] 14 Aug, 2018 [facility] [place] [facility] [id number] [place] [address] 13 Aug, 2018 [facility] [place] [facility] [id number] [place] [address] 08 Aug, 2018 [facility] [place] [facility] [address] [address] 19 Jul, 2018 [facility] [place] [facility] [id number] [place] [address] Jul, [facility] [place] [facility] [address] [address] Jul, [facility] [place] [facility] [id number] [address] Jul, [facility] [place] [facility] [id number] [place] [address] Jul, [facility] [place] [facility] [id number] [address] Jul, [facility] [address] [place] [id number] Jul, Hemiplegia affecting left nondominant side G81.94 ; Chronic obstructive pulmonary disease J44.9 and Weakness R53.1 [facility] [id number] [place] [address] Jul, [facility] [address] [place] [id number] Jul, Weakness R53.1 ; Paroxysmal atrial fibrillation I48.0 and Unsteady gait R26.81 [facility] [id number] [place] [address] Jul, Tobacco abuse Z72.0 [facility] [address] [place] [id number] Jun, History of acute respiratory failure Z87.09 ; Weight gain R63.5 and Tobacco abuse Z72.0 [facility] [id number] [address] Jun, [facility] [id number] [address] May, Primary insomnia F51.01 [facility] [place] [id number] [place] [address] May, Mild episode of recurrent major depressive disorder F33.0 [facility] [place] [id number] [place] [address] May, [facility] [id number] [address] May, Chronic obstructive pulmonary disease, unspecified COPD type J44.9 ; Primary insomnia F51.01 ; Fatigue, unspecified type R53.83 and Weight gain R63.5 [place] [address] [address] May, Thrush B37.0 [place] [address] [address] May, Mild episode of recurrent major depressive disorder F33.0 and Generalized anxiety disorder F41.1 [place] [address] [address] May, Thrush B37.0 [place] [address] [address] Apr, Cough R05 [place] [address] [address] Mar, Mild episode of recurrent major depressive disorder F33.0 [place] [address] [address] Mar, Mild episode of recurrent major depressive disorder F33.0 and Generalized anxiety disorder F41.1 [place] [address] [address] Mar, Seasonal allergies J30.2 [place] [address] [address] Mar, Seasonal allergies J30.2 [facility] [id number] [place] [address] February, Generalized anxiety disorder F41.1 [facility] [id number] [place] [address] February, Cough R05 and Seasonal allergies J30.2 [facility] [place] [id number] [place] [address] February, Generalized anxiety disorder F41.1 and Mild episode of recurrent major depressive disorder F33.0 [facility] [id number] [place] [address] February, 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 ; Anxiety F41.9 ; Panic attacks F41.0 and Irritable bowel syndrome with diarrhea K58.0 [facility] [place] [facility] [id number] [place] [address] February, [facility] [place] [facility] [address] [address] Jan, Mixed hyperlipidemia E78.2 [facility] [place] [facility] [id number] [place] [address] Jan, [facility] [place] [facility] [id number] [place] [address] Jan, [facility] [place] [facility] [id number] [place] [address] Jan, [facility] [place] [facility] [id number] [place] [address] Jan, [facility] [place] [facility] [id number] [place] [address] Dec, [facility] [place] [facility] [id number] [place] [address] Dec, [facility] [place] [facility] [id number] [place] [address] Dec, [facility] [place] [facility] [id number] [place] [address] Nov, Dysthymic disorder F34.1 [facility] [place] [facility] [id number] [place] [address] Oct, [facility] [place] [facility] [id number] [place] [address] Oct, [facility] [place] [facility] [id number] [place] [address] Oct, [facility] [id number] [place] [address] Oct, Diarrhea, unspecified type R19.7 and Dysuria R30.0 [facility] [id number] [place] [address] Oct, [facility] [id number] [place] [address] Sep, [facility] [id number] [place] [address] Sep, [facility] [id number] [place] [address] Sep, Anxiety F41.9 [facility] [id number] [place] [address] Sep, Cerebrovascular accident (CVA), unspecified mechanism I63.9 ; Mixed hyperlipidemia E78.2 ; Gastroesophageal reflux disease with esophagitis K21.0 and Anxiety F41.9 [facility] [id number] [place] [address] Sep, [place] [address] [id number] [place] [address] Aug, Chronic obstructive pulmonary disease, unspecified J44.9 ; Asthma J45.909 ; Nausea R11.0 ; Dysthymic disorder F34.1 ; Cerebrovascular accident (CVA), unspecified mechanism I63.9 and Rheumatoid arthritis M06.9 [facility] [id number] [place] [address] Aug, Nausea R11.0 ; Encounter for immunization Z23 ; Sleep apnea in adult G47.30 ; Rheumatoid arthritis involving multiple sites, unspecified rheumatoid factor presence M06.9 ; Generalized anxiety disorder F41.1 ; Dysthymic disorder F34.1 and Asthma J45.909 [facility] [id number] [place] [address] Jul, [place] [address] [address] May, ADHD (attention deficit hyperactivity disorder), combined type F90.2 ; Generalized anxiety disorder F41.1 and Persistent depressive disorder F34.1 [facility] [id number] [place] [address] May, Cerebrovascular accident (CVA), unspecified mechanism I63.9 [place] [address] [address] Apr, Mixed hyperlipidemia E78.2 and Cerebrovascular accident (CVA), unspecified mechanism I63.9 [facility] [place] [address] [address] Apr, Generalized anxiety disorder F41.1 [facility] [id number] [place] [address] Apr, Bronchitis J40 and Tobacco use Z72.0 [facility] [address] [address] Apr, Mixed hyperlipidemia E78.2 [facility] [address] [address] Apr, Other alf (current) drug therapy Z79.899 [facility] [id number] [place] [address] Apr, [facility] [id number] [place] [address] Apr, Generalized anxiety disorder F41.1 [facility] [id number] [place] [address] Apr, Obstructive sleep apnea G47.33 and Hyperinsulinemia E16.1 [facility] [id number] [place] [address] Apr, ADHD (attention deficit hyperactivity disorder), combined type F90.2 ; Generalized anxiety disorder F41.1 and Persistent depressive disorder F34.1 [facility] [id number] [address] Mar, [facility] [place] [facility] [id number] [place] [address] Mar, Generalized anxiety disorder F41.1 [facility] [place] [facility] [id number] [address] Mar, Tarsal tunnel syndrome of both lower extremities G57.53 [facility] [place] [facility] [id number] [place] [address] February, [facility] [place] [facility] [id number] [place] [address] February, [facility] [place] [facility] [id number] [place] [address] February, Asthma J45.909 [facility] [place] [facility] [id number] [place] [address] February, Generalized anxiety disorder F41.1 [facility] [place] [facility] [id number] [place] [address] February, Hypoxemia R09.02 ; Hyperglycemia R73.9 ; Rheumatoid arthritis M06.9 and Generalized anxiety disorder F41.1 [facility] [place] [facility] [id number] [address] February, [facility] [place] [facility] [id number] [place] [address] Jan, Chronic obstructive pulmonary disease, unspecified J44.9 [facility] [place] [facility] [id number] [address] Jan, Chronic pain syndrome G89.4 [facility] [place] [facility] [id number] [place] [address] Jan, Hypoxemia R09.02 [facility] [place] [facility] [id number] [address] Jan, [facility] [place] [facility] [id number] [place] [address] Jan, Chronic obstructive pulmonary disease, unspecified J44.9 ; Hypoxemia R09.02 ; Other insomnia G47.09 and Left anterior shoulder pain M25.512 [facility] [place] [facility] [id number] [place] [address] Jan, Numbness in feet R20.0 and Neuropathy G62.9 [facility] [place] [facility] [address] [address] Jan, [facility] [place] [facility] [address] [address] Dec, Acute pain of left shoulder M25.512 [facility] [place] [facility] [id number] [place] [address] Dec, Acute pain of left shoulder M25.512 [facility] [place] [facility] [address] [address] Dec, Generalized anxiety disorder F41.1 [facility] [place] [facility] [address] [address] Dec, Generalized anxiety disorder F41.1 [facility] [id number] [place] [address] Nov, ADHD (attention deficit hyperactivity disorder), combined type F90.2 ; Generalized anxiety disorder F41.1 and Persistent depressive disorder F34.1 [facility] [place] [facility] [id number] [place] [address] Nov, Acute pain of left shoulder M25.512 [facility] [place] [facility] [id number] [place] [address] Nov, ADHD (attention deficit hyperactivity disorder), combined type F90.2 ; Generalized anxiety disorder F41.1 and Persistent depressive disorder F34.1 [facility] [place] [facility] [id number] [place] [address] Nov, Chronic pain syndrome G89.4 [facility] [id number] [address] 13 Nov, 2016 Chronic pain syndrome G89.4 [facility] [id number] [place] [address] 08 Nov, 2016 Acute pain of left shoulder M25.512 [facility] [id number] [place] [address] Nov, Generalized anxiety disorder F41.1 [facility] [id number] [place] [address] Nov, Acute pain of left shoulder M25.512 [facility] [id number] [place] [address] Nov, ADHD (attention deficit hyperactivity disorder), combined type F90.2 ; Generalized anxiety disorder F41.1 and Persistent depressive disorder F34.1 [facility] [id number] [place] [address] Nov, Acute pain of left shoulder M25.512 ; Generalized anxiety disorder F41.1 ; Chronic pain syndrome G89.4 ; Hyperinsulinemia E16.1 ; Pain of left foot M79.672 and Pain in right foot M79.671 [facility] [id number] [place] [address] Oct, ADHD (attention deficit hyperactivity disorder), combined type F90.2 ; Generalized anxiety disorder F41.1 and Dysthymic disorder F34.1 [facility] [address] [address] Sep, [facility] [id number] [place] [address] Sep, [facility] [address] [address] Sep, Routine gynecological examination V72.31 ; Cervical cancer screening Z12.4 ; Breast cancer screening Z12.39 ; Colon cancer screening Z12.11 ; Hypokalemia E87.6 ; Herpes simplex type 1 infection B00.9 and Abscess of right axilla L02.411 [facility] [id number] [place] [address] Sep, [facility] [id number] [place] [address] Sep, ADHD (attention deficit hyperactivity disorder), combined type F90.2 ; Generalized anxiety disorder F41.1 and Dysthymic disorder F34.1 [facility] [id number] [place] [address] Aug, [place] [address] [address] Aug, [place] [address] [address] Aug, Generalized anxiety disorder F41.1 [place] [address] [address] Aug, ADHD (attention deficit hyperactivity disorder), combined type F90.2 ; Generalized anxiety disorder F41.1 and Dysthymic disorder F34.1 [facility] [id number] [place] [address] Jul, Chronic pain syndrome G89.4 ; Hypertension I10 ; Hypokalemia E87.6 ; Asthma J45.909 and Nausea R11.0 [facility] [place] [id number] [place] [address] Jul, [facility] [id number] [place] [address] Jul, Asthma J45.909 [facility] [id number] [place] [address] Jul, ADHD (attention deficit hyperactivity disorder), combined type F90.2 ; Generalized anxiety disorder F41.1 and Dysthymic disorder F34.1 [place] [address] [place] [address] Jul, [place] [address] [address] Jul, Hypertension I10 ; Arteriosclerotic coronary artery disease I25.10 ; Mixed hyperlipidemia E78.2 ; 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 and Hyperglycemia R73.9 [place] [address] [address] 16 Jun, 2016 Hypokalemia E87.6 and Hyperglycemia R73.9 [facility] [address] [address] 14 Jun, 2016 [place] [address] [address] Jun, Abnormal kidney function N28.9 [place] [address] [address] Jun, [place] [address] [address] Jun, ADHD (attention deficit hyperactivity disorder), combined type F90.2 ; Generalized anxiety disorder F41.1 and Dysthymic disorder F34.1 [place] [address] [address] Jun, Generalized anxiety disorder F41.1 and Dysthymic disorder F34.1 [place] [address] [address] Jun, Hypokalemia E87.6 [facility] [address] [address] May, Hypokalemia E87.6 ; Vertigo R42 and Hyperinsulinemia E16.1 [facility] [id number] [place] [address] May, [place] [address] [address] May, Abnormal kidney function N28.9 ; Hyperinsulinemia E16.1 and Nausea R11.0 [place] [address] [address] May, Hypokalemia E87.6 ; Nausea R11.0 ; Epigastric pain R10.13 ; Dehydration E86.0 ; Diaphoresis R61 and Right arm pain M79.601 [place] [address] [address] May, [place] [address] [address] May, Hypokalemia E87.6 [place] [address] [address] May, Hypokalemia E87.6 [facility] [address] [address] Apr, [place] [address] [address] Apr, ADHD (attention deficit hyperactivity disorder), combined type F90.2 ; Generalized anxiety disorder F41.1 and Dysthymic disorder F34.1 [facility] [id number] [place] [address] Apr, Right arm pain M79.601 and Hyperinsulinemia E16.1 [facility] [id number] [place] [address] Mar, [facility] [id number] [place] [address] Mar, [place] [address] [address] Mar, Hyperinsulinemia E16.1 ; Hyperlipidemia, unspecified hyperlipidemia type E78.5 ; Central venous catheter in place Z78.9 ; Generalized anxiety disorder F41.1 and Urinary tract infection, site not specified N39.0 [facility] [id number] [place] [address] Mar, ADHD (attention deficit hyperactivity disorder), combined type F90.2 ; Generalized anxiety disorder F41.1 and Dysthymic disorder F34.1 [facility] [place] [id number] [place] [address] February, ADHD (attention deficit hyperactivity disorder), combined type F90.2 ; Generalized anxiety disorder F41.1 and Dysthymic disorder F34.1 [facility] [id number] [place] [address] February, [place] [address] [address] February, [facility] [id number] [place] [address] February, Hypertension I10 and Weight gain R63.5 [place] [place] [id number] [place] [address] February, Major depressive disorder, recurrent, moderate F33.1 and Generalized anxiety disorder F41.1 [facility] [place] [id number] [place] [address] February, ADHD (attention deficit hyperactivity disorder), combined type F90.2 ; Generalized anxiety disorder F41.1 and Dysthymic disorder F34.1 [facility] [place] [id number] [place] [address] February, [place] [id number] [place] [address] February, Asthma J45.909 ; Weight gain R63.5 ; Hypertension I10 ; Rheumatoid arthritis M06.9 and Chronic pain syndrome G89.4 [facility] [place] [id number] [place] [address] Jan, ADHD (attention deficit hyperactivity disorder), combined type F90.2 ; Generalized anxiety disorder F41.1 and Dysthymic disorder F34.1 [place] [address] [address] Dec, ADHD (attention deficit hyperactivity disorder), combined type F90.2 ; Generalized anxiety disorder F41.1 and Dysthymic disorder F34.1 [facility] [place] [facility] [id number] [place] [address] Dec, [facility] [place] [facility] [id number] [place] [address], [place] [address] Nov, [facility] [place] [facility] [id number] [place] [address] Nov, [facility] [place] [facility] [id number] [place] [address], [place] [address] Nov, [facility] [place] [facility] [id number] [place] [address] Nov, [facility] [place] [facility] [id number] [place] [address] Oct, [facility] [place] [facility] [id number] [place] [address] Oct, [facility] [id number] [address] Oct, [facility] [id number] [address] Sep, [facility] [id number] [address] Sep, [facility] [id number] [address] Sep, Agoraphobia with panic disorder F40.01 ; Attention-deficit hyperactivity disorder, combined type F90.2 and Dysthymic disorder F34.1 [facility] [id number] [address] Aug, [facility] [id number] [address] Aug, [facility] [id number] [address] Aug, [facility] [id number] [place] [address] Aug, Dysthymic disorder F34.1 ; Generalized anxiety disorder F41.1 and ADHD (attention deficit hyperactivity disorder), combined type F90.2 [facility] [id number] [place] [address] Aug, ADHD (attention deficit hyperactivity disorder), combined type F90.2 ; Generalized anxiety disorder F41.1 and Dysthymic disorder F34.1 [facility] [place] [facility] [id number] [place] [address] Jul, Urinary tract infection, site not specified N39.0 ; Hypotension, unspecified I95.9 and Breast cancer screening Z12.39 [facility] [place] [facility] [id number] [place] [address] Jul, [facility] [place] [facility] [id number] [place] [address] Jul, [facility] [place] [facility] [id number] [place] [address] Jul, Urinary tract infection, site not specified N39.0 ; Nausea R11.0 ; Gastroenteritis K52.9 ; Renal failure N19 and Other hypotension I95.89 [facility] [place] [facility] [id number] [address] Jul, [facility] [place] [facility] [id number] [address] Jul, [facility] [place] [facility] [id number] [place] [address] Jul, [facility] [place] [facility] [address] [id number] [address] Jun, [facility] [place] [facility] [id number] [place] [address] Jun, Major depression in partial remission 296.25 ; Generalized anxiety disorder 300.02 and ADHD, predominantly inattentive type 314.01 [address] [place] [id number] [place] [address] May, [place] [id number] [place] [address] Apr, Major depressive disorder, recurrent episode, severe, without mention of psychotic behavior 296.33 ; Agoraphobia with panic disorder 300.21 and Generalized anxiety disorder 300.02 [address] [place] [id number] [place] [address] Apr, ADHD (attention deficit hyperactivity disorder), combined type 314.01 ; Generalized anxiety disorder 300.02 and Dysthymic disorder 300.4 [place] [id number] [place] [address] Apr, CAD (coronary artery disease) 414.00 ; HTN (hypertension) 401.9 and Tobacco use 305.1 [place] [id number] [place] [address] Apr, [place] [id number] [place] [address] Mar, ADHD (attention deficit hyperactivity disorder), combined type 314.01 ; Generalized anxiety disorder 300.02 ; Dysthymic disorder 300.4 ; No condition on [place] II V71.09 ; Rheumatoid arthritis 714.0 ; Incontinence 788.30 ; Irritable bowel syndrome 564.1 ; Osteoporosis 733.00 and Chronic pain 338.29 [place] [id number] [place] [address] Mar, Agoraphobia with panic disorder 300.21 and Major depressive disorder, recurrent episode, moderate 296.32 [address] [id number] [place] [address] Mar, [place] [id number] [place] [address] February, [facility] [address] [id number] [address] February, Agoraphobia with panic disorder 300.21 and Major depressive disorder, recurrent episode, moderate 296.32 [facility] [address] [facility] [id number] [address] February, [facility] [address] [facility] [id number] [address] Jan, [facility] [address] [facility] [id number] [address] Jan, [facility] [id number] [address] Dec, [facility] [id number] [address] Dec, [facility] [id number] [address] Dec, [facility] [address] [id number] [address] Dec, [facility] [id number] [address] Dec, [facility] [id number] [address] Dec, [facility] [address] [id number] [address] Nov, [facility] [address] [id number] [address] Nov, [facility] [id number] [address] Nov, [facility] [address] [id number] [address] Nov, [facility] [id number] [place] [address] 17 Nov, 2014 [facility] [place] [facility] [address] [id number] [place] [address] Nov, 2014 [facility] [place] [facility] [address] [id number] [place] [address] 10 Nov, 2014 [facility] [place] [facility] [address] [id number] [place] [address] Nov, 2014 [facility] [place] [facility] [address] [id number] [place] [address] Oct, [facility] [place] [facility] [address] [id number] [place] [address] Oct, [facility] [place] [facility] [address] [id number] [place] [address] Oct, [facility] [place] [facility] [address] [id number] [place] [address] Oct, [facility] [place] [facility] [address] [id number] [place] [address] Oct, [facility] [place] [facility] [address] [id number] [place] [address] Oct, [facility] [place] [facility] [address] [facility] [id number] [place] [address] Sep, [facility] [place] [facility] [address] [id number] [place] [address] Sep, [facility] [place] [facility] [address] [id number] [place] [address] Sep, [facility] [place] [facility] [address] [id number] [place] [address] Sep, [facility] [place] [facility] [address] [id number] [place] [address] Sep, [facility] [place] [facility] [address] [id number] [place] [address] Sep, [facility] [place] [facility] [address] [id number] [place] [address] Sep, [facility] [place] [facility] [address] [id number] [place] [address] Aug, [facility] [place] [facility] [address] [id number] [place] [address] Aug, [facility] [place] [facility] [address] [id number] [place] [address] Aug, [facility] [place] [facility] [address] [id number] [place] [address] Aug, [facility] [place] [facility] [address] [id number] [place] [address] Aug, [facility] [place] [facility] [address] [id number] [place] [address] Aug, [facility] [place] [facility] [address] [id number] [place] [address] Jul, [facility] [place] [facility] [address] [id number] [place] [address] Jul, [facility] [place] [facility] [address] [id number] [place] [address] Jul, [facility] [place] [facility] [address] [id number] [place] [address] Jul, [facility] [place] [facility] [address] [id number] [address] Jul, [facility] [place] [facility] [address] [id number] [place] [address] Jul, [facility] [place] [facility] [address] [id number] [place] [address] Jun, [facility] [place] [facility] [address] [id number] [place] [address] Jun, [facility] [place] [facility] [address] [id number] [place] [address] May, [facility] [place] [facility] [address] [id number] [place] [address] May, [facility] [place] [facility] [address] [id number] [place] [address] Apr, [facility] [place] [facility] [address] [id number] [place] [address] Apr, [facility] [place] [facility] [address] [id number] [place] [address] Apr, [facility] [place] [facility] [address] [id number] [place] [address] Apr, [facility] [place] [facility] [address] [id number] [place] [address] Mar, [facility] [place] [facility] [address] [id number] [place] [address] Mar, [facility] [place] [facility] [address] [id number] [place] [address] Mar, [facility] [place] [facility] [address] [id number] [place] [address] Mar, [facility] [place] [facility] [address] [id number] [place] [address] February, [facility] [place] [facility] [address] [id number] [place] [address] February, [facility] [place] [facility] [address] [id number] [place] [address] February, [facility] [place] [facility] [address] [id number] [place] [address] February, [facility] [place] [facility] [address] [id number] [place] [address] February, [facility] [place] [facility] [address] [id number] [place] [address] February, [facility] [place] [facility] [address] [id number] [place] [address] Jan, [facility] [place] [facility] [address] [id number] [place] [address] Jan, [facility] [place] [facility] [address] [id number] [place] [address] Dec, [facility] [place] [facility] [address] [id number] [place] [address] Dec, [facility] [place] [facility] [address] [id number] [place] [address] Nov, [facility] [place] [facility] [address] [id number] [place] [address] Nov, [facility] [place] [facility] [address] [id number] [place] [address] Oct, [facility] [place] [facility] [address] [id number] [place] [address] Oct, [facility] [place] [facility] [address] [id number] [place] [address] Oct, [facility] [place] [facility] [address] [id number] [place] [address] Oct, [facility] [place] [facility] [address] [id number] [place] [address] Sep, [facility] [place] [facility] [address] [id number] [place] [address] Sep, [facility] [place] [facility] [address] [id number] [place] [address] Sep, [facility] [place] [facility] [address] [id number] [place] [address] Sep, [facility] [place] [facility] [address] [id number] [place] [address] Sep, [facility] [place] [facility] [address] [id number] [address] Sep, [facility] [place] [facility] [address] [id number] [place] [address] Sep, [facility] [place] [facility] [address] [id number] [place] [address] Sep, [facility] [place] [facility] [address] [facility] [id number] [place] [address] Aug, [facility] [place] [facility] [address] [id number] [place] [address] Aug, [facility] [place] [facility] [address] [id number] [place] [address] Aug, [facility] [place] [facility] [address] [id number] [place] [address] Aug, [facility] [place] [facility] [address] [id number] [place] [address] Aug, [facility] [place] [facility] [address] [id number] [address] Aug, [facility] [place] [facility] [address] [id number] [place] [address] Aug, [facility] [place] [facility] [address] [id number] [place] [address] Aug, [facility] [place] [facility] [address] [id number] [place] [address] Aug, [facility] [place] [facility] [address] [id number] [place] [address] Jul, [facility] [place] [facility] [address] [id number] [place] [address] Jun, [facility] [place] [facility] [address] [id number] [place] [address] May, [facility] [place] [facility] [address] [id number] [place] [address] May, [facility] [place] [facility] [address] [id number] [place] [address] May, [facility] [address] [id number] [place] [address] Apr, [facility] [address] [id number] [place] [address] Mar, [facility] [address] [id number] [place] [address] February, [facility] [address] [id number] [place] [address] Oct, [facility] [address] [id number] [place] [address] Oct, [facility] [address] [id number] [place] [address] Oct, [facility] [address] [id number] [place] [address] Oct, [facility] [address] [id number] [place] [address] Oct, [facility] [address] [id number] [place] [address] Oct, [facility] [address] [facility] [id number] [place] [address] Sep, [facility] [address] [id number] [place] [address] Sep, [facility] [address] [id number] [place] [address] Aug, [facility] [address] [id number] [place] [address] Aug, [facility] [address] [id number] [place] [address] Jul, [facility] [address] [id number] [place] [address] Jul, [facility] [place] [facility] [address] [id number] [place] [address] Jul, [facility] [place] [facility] [address] [id number] [place] [address] Jul, [facility] [place] [facility] [address] [id number] [place] [address] Jul, [facility] [place] [facility] [address] [id number] [place] [address] Jul, [facility] [place] [facility] [address] [id number] [place] [address] Jul, [facility] [place] [facility] [address] [id number] [place] [address] Jul, [facility] [place] [facility] [address] [facility] [id number] [place] [address] Jun, [facility] [place] [facility] [address] [id number] [place] [address] Jun, [facility] [place] [facility] [address] [id number] [place] [address] May, [facility] [place] [facility] [address] [facility] [id number] [address] Apr, [facility] [place] [facility] [address] [id number] [place] [address] Mar, [facility] [place] [facility] [address] [id number] [place] [address] Mar, [facility] [place] [facility] [address] [id number] [place] [address] Mar, [facility] [place] [facility] [address] [id number] [place] [address] Mar, [facility] [place] [facility] [address] [facility] [id number] [address] Jan, [facility] [place] [facility] [address] [id number] [place] [address] 14 Nov, 2011 [facility] [address] [id number] [place] [address] Nov, [facility] [place] [facility] [address] [id number] [place] [address] Nov, [facility] [address] [id number] [place] [address] Oct, [facility] [place] [facility] [address] [id number] [place] [address] Sep, [facility] [place] [facility] [address] [id number] [place] [address] Sep, [facility] [place] [facility] [address] [id number] [place] [address] Aug, [facility] [address] [id number] [place] [address] Aug, [facility] [place] [facility] [address] [id number] [place] [address] Aug, [facility] [place] [facility] [address] [id number] [place] [address] Aug, [facility] [place] [facility] [address] [facility] [id number] [place] [address] Jul, [facility] [address] [id number] [place] [address] May, [facility] [place] [facility] [address] [id number] [place] [address] Jan, [facility] [place] [facility] [address] [id number] [place] [address] Nov, [facility] [place] [facility] [address] [id number] [place] [address] Apr, [facility] [place] [facility] [address] [id number] [place] [address] Dec, [facility] [place] [facility] [address] [facility] [id number] [place] [address] 12 Nov, 2008 IMMUNIZATIONS No Known Immunizations SOCIAL HISTORY Never Assessed REASON FOR VISIT Concern report PLAN OF CARE VITAL SIGNS MEDICATIONS Unknown Medications RESULTS No Results PROCEDURES No Known procedures INSTRUCTIONS MEDICATIONS ADMINISTERED No Known Medications MEDICAL (GENERAL) HISTORY Type Description Date Medical History Cardiovascular ezlnwsrx-VNQ-Kzeyxidi, non-obstructive per (01/2011) Dr. Mendoza Medical History Stress test 03/07/13-Dr. Kelly Dietrich normal Medical History Hypertension Medical History Asthma Medical History Gastrointestinal Disorder--IBS, GERD, Hx of fatty liver Medical History Hernia 1978 Medical History Cervical dysplasia 02/16-Pap LGSIL/[place]-mild dysplasia Medical History Hyperlipidemia Medical History Rheumatoid [...] Kidney injury 07/10/15-07/11/2015 Hospitalization History Symptomatic Hypokalemia/Nause-[facility] 05/13/16 Hospitalization History Stroke 05/03/2017 Hospitalization History stroke 08/24/2017--09/01/2017
--- OUTSIDE RECORDS SUMMARY | 2019-05-22 07:39 | XMS REPORT ---
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 Optics Engineer Name Role Phone LORI SNOWDEN Unavailable PROBLEMS Type Condition ICD9-CM Code [id number] Code Onset Dates Condition Status SNOMED Code Problem Hemiparesis of left nondominant side as late effect of cerebral infarction I69.354 Active 907129861 Problem Morbid (severe) obesity due to excess calories E66.01 Active 100381266 Problem Generalized anxiety disorder F41.1 Active 19589948 Problem ADHD (attention deficit hyperactivity disorder), combined type F90.2 Active 96584563 Problem Chronic pain syndrome G89.4 Active 485844824 Problem Rheumatoid arthritis M06.9 Active 34461675 Problem Gastroesophageal reflux disease with esophagitis K21.0 Active 556498453 Problem Asthma J45.909 Active 922401109 Problem Anxiety F41.9 Active 72034925 Problem Hypertension I10 Active 70197356 Problem Irritable bowel syndrome with diarrhea K58.0 Active 131034673 Problem Mild episode of recurrent major depressive disorder F33.0 Active 053130656 Problem Panic attacks F41.0 Active 146883765 Problem Hemiplegia affecting left nondominant side G81.94 Active Problem Chronic obstructive pulmonary disease J44.9 Active 27065468 Problem Hyperinsulinemia E16.1 Active 85860175 Problem Mixed hyperlipidemia E78.2 Active 062028655 Problem Arteriosclerotic coronary artery disease I25.10 Active 25326771 Problem Primary insomnia F51.01 Active 6121672 Problem Seasonal allergies J30.2 Active 838376703 Problem Unsteady gait R26.81 Active 00332806 Problem Paroxysmal atrial fibrillation I48.0 Active 379968502 Problem Obstructive sleep apnea G47.33 Active 16619556 Problem Other snf (current) drug therapy Z79.899 Active 171789555 Problem Neuropathy G62.9 Active 069628889 Problem Other insomnia G47.09 Active 637711553 Problem Sleep apnea in adult G47.30 Active 87407531 Problem Rheumatoid arthritis involving multiple sites, unspecified rheumatoid factor presence M06.9 Active 315279537 Problem Cerebrovascular accident (CVA), unspecified mechanism I63.9 Active 711796317 Problem Dysthymic disorder F34.1 Active 48850823 ALLERGIES Substance Reaction Event Type Date Status [...] Sep, Active ENCOUNTERS Encounter Location Date Diagnosis [facility] [id number] [place] [address] Sep, [facility] [address] [address] Sep, [facility] [address] [address] Sep, Orthostatic hypotension I95.1 ; Shortness of breath R06.02 ; Right foot pain M79.671 and Morbid (severe) obesity due to excess calories E66.01 [facility] [id number] [place] [address] Aug, [facility] [id number] [place] [address] Aug, [facility] [id number] [place] [address] 14 Aug, 2018 [facility] [id number] [place] [address] 13 Aug, 2018 [facility] [id number] [place] [address] 08 Aug, 2018 [facility] [address] [address] Jul, [facility] [address] [place] [address] Jul, [facility] [address] [place] [address] Jul, [facility] [id number] [place] [address] Jul, [facility] [id number] [place] [address] Jul, [facility] [id number] [place] [address] Jul, [facility] [address] [place] [id number] Jul, Hemiplegia affecting left nondominant side G81.94 ; Chronic obstructive pulmonary disease J44.9 and Weakness R53.1 [facility] [address] [place] [address] Jul, [facility] [address] [place] [id number] Jul, Weakness R53.1 ; Paroxysmal atrial fibrillation I48.0 and Unsteady gait R26.81 [facility] [address] [address] Jul, Tobacco abuse Z72.0 [facility] [address] [place] [id number] Jun, History of acute respiratory failure Z87.09 ; Weight gain R63.5 and Tobacco abuse Z72.0 [facility] [address] [place] [address] Jun, [facility] [id number] [place] [address] May, Primary insomnia F51.01 [facility] [address] [place] [address] May, Mild episode of recurrent major depressive disorder F33.0 [facility] [id number] [place] [address] May, [facility] [id number] [place] [address] May, Chronic obstructive pulmonary disease, unspecified COPD type J44.9 ; Primary insomnia F51.01 ; Fatigue, unspecified type R53.83 and Weight gain R63.5 [facility] [id number] [place] [address] May, Thrush B37.0 [facility] [id number] [place] [address] May, Mild episode of recurrent major depressive disorder F33.0 and Generalized anxiety disorder F41.1 [facility] [id number] [place] [address] May, Thrush B37.0 [facility] [id number] [place] [address] Apr, Cough R05 [facility] [id number] [place] [address] Mar, Mild episode of recurrent major depressive disorder F33.0 [facility] [id number] [place] [address] Mar, Mild episode of recurrent major depressive disorder F33.0 and Generalized anxiety disorder F41.1 [facility] [address] [place] [address] Mar, Seasonal allergies J30.2 [facility] [id number] [place] [address] Mar, Seasonal allergies J30.2 [facility] [id number] [place] [address] February, Generalized anxiety disorder F41.1 [facility] [address] [address] February, Cough R05 and Seasonal allergies J30.2 [facility] [address] [address] February, Generalized anxiety disorder F41.1 and Mild episode of recurrent major depressive disorder F33.0 [facility] [address] [address] February, Other remote computer terminal operator (current) drug therapy Z79.899 ; Anxiety F41.9 ; Panic attacks F41.0 and Irritable bowel syndrome with diarrhea K58.0 [facility] [address] [address] February, [facility] [address] [address] Jan, Mixed hyperlipidemia E78.2 [facility] [address] [address] Jan, [facility] [id number] [place] [address] Jan, [facility] [address] [address] Jan, [facility] [id number] [place] [address] Jan, [facility] [id number] [place] [address] Dec, [facility] [id number] [place] [address] Dec, [facility] [address] [address] Dec, [facility] [id number] [place] [address] Nov, Dysthymic disorder F34.1 [facility] [id number] [place] [address] Oct, [facility] [id number] [place] [address] Oct, [facility] [id number] [place] [address] Oct, [facility] [id number] [place] [address] Oct, Diarrhea, unspecified type R19.7 and Dysuria R30.0 [facility] [address] [address] Oct, [facility] [address] [address] Sep, [facility] [address] [address] Sep, [facility] [address] [address] Sep, Anxiety F41.9 [facility] [id number] [place] [address] Sep, Cerebrovascular accident (CVA), unspecified mechanism I63.9 ; Mixed hyperlipidemia E78.2 ; Gastroesophageal reflux disease with esophagitis K21.0 and Anxiety F41.9 [facility] [id number] [place] [address] Sep, [facility] [id number] [place] [address] Aug, Chronic obstructive pulmonary disease, unspecified J44.9 ; Asthma J45.909 ; Nausea R11.0 ; Dysthymic disorder F34.1 ; Cerebrovascular accident (CVA), unspecified mechanism I63.9 and Rheumatoid arthritis M06.9 [facility] [id number] [place] [address] Aug, Nausea R11.0 ; Encounter for immunization Z23 ; Sleep apnea in adult G47.30 ; Rheumatoid arthritis involving multiple sites, unspecified rheumatoid factor presence M06.9 ; Generalized anxiety disorder F41.1 ; Dysthymic disorder F34.1 and Asthma J45.909 [facility] [id number] [place] [address] Jul, [facility] [address] [address] May, ADHD (attention deficit hyperactivity disorder), combined type F90.2 ; Generalized anxiety disorder F41.1 and Persistent depressive disorder F34.1 [facility] [address] [address] May, Cerebrovascular accident (CVA), unspecified mechanism I63.9 [facility] [address] [address] Apr, Mixed hyperlipidemia E78.2 and Cerebrovascular accident (CVA), unspecified mechanism I63.9 [facility] [address] [address] Apr, Generalized anxiety disorder F41.1 [facility] [address] [address] Apr, Bronchitis J40 and Tobacco use Z72.0 [facility] [address] [address] Apr, Mixed hyperlipidemia E78.2 [facility] [address] [address] Apr, Other remote computer terminal operator (current) drug therapy Z79.899 [facility] [address] [address] Apr, [facility] [address] [address] Apr, Generalized anxiety disorder F41.1 [facility] [address] [address] Apr, Obstructive sleep apnea G47.33 and Hyperinsulinemia E16.1 [facility] [id number] [place] [address] Apr, ADHD (attention deficit hyperactivity disorder), combined type F90.2 ; Generalized anxiety disorder F41.1 and Persistent depressive disorder F34.1 [facility] [id number] [place] [address] Mar, [facility] [id number] [place] [address] Mar, Generalized anxiety disorder F41.1 [facility] [id number] [place] [address] Mar, Tarsal tunnel syndrome of both lower extremities G57.53 [facility] [id number] [place] [address] February, [facility] [id number] [place] [address] February, [facility] [id number] [place] [address] February, Asthma J45.909 [facility] [id number] [place] [address] February, Generalized anxiety disorder F41.1 [facility] [id number] [place] [address] February, Hypoxemia R09.02 ; Hyperglycemia R73.9 ; Rheumatoid arthritis M06.9 and Generalized anxiety disorder F41.1 [facility] [id number] [place] [address] February, [facility] [id number] [place] [address] Jan, Chronic obstructive pulmonary disease, unspecified J44.9 [facility] [id number] [place] [address] Jan, Chronic pain syndrome G89.4 [facility] [id number] [place] [address] Jan, Hypoxemia R09.02 [facility] [id number] [place] [address] Jan, [facility] [id number] [place] [address] Jan, Chronic obstructive pulmonary disease, unspecified J44.9 ; Hypoxemia R09.02 ; Other insomnia G47.09 and Left anterior shoulder pain M25.512 [facility] [address] [address] Jan, Numbness in feet R20.0 and Neuropathy G62.9 [facility] [id number] [place] [address] Jan, [facility] [address] [address] Dec, Acute pain of left shoulder M25.512 [facility] [id number] [place] [address] Dec, Acute pain of left shoulder M25.512 [facility] [id number] [place] [address] Dec, Generalized anxiety disorder F41.1 [facility] [id number] [place] [address] Dec, Generalized anxiety disorder F41.1 [facility] [id number] [place] [address] Nov, ADHD (attention deficit hyperactivity disorder), combined type F90.2 ; Generalized anxiety disorder F41.1 and Persistent depressive disorder F34.1 [facility] [id number] [place] [address] Nov, Acute pain of left shoulder M25.512 [facility] [id number] [place] [address] Nov, ADHD (attention deficit hyperactivity disorder), combined type F90.2 ; Generalized anxiety disorder F41.1 and Persistent depressive disorder F34.1 [facility] [address], [place] [address] Nov, Chronic pain syndrome G89.4 [facility] [address], [place] [address] Nov, Chronic pain syndrome G89.4 [facility] [id number] [place] [address] Nov, Acute pain of left shoulder M25.512 [facility] [id number] [place] [address] Nov, Generalized anxiety disorder F41.1 [facility] [id number] [place] [address] Nov, Acute pain of left shoulder M25.512 [facility] [address] [place] [address] Nov, ADHD (attention deficit hyperactivity disorder), combined type F90.2 ; Generalized anxiety disorder F41.1 and Persistent depressive disorder F34.1 [facility] [address], [place] [address] Nov, Acute pain of left shoulder M25.512 ; Generalized anxiety disorder F41.1 ; Chronic pain syndrome G89.4 ; Hyperinsulinemia E16.1 ; Pain of left foot M79.672 and Pain in right foot M79.671 [facility] [address], [place] [address] Oct, ADHD (attention deficit hyperactivity disorder), combined type F90.2 ; Generalized anxiety disorder F41.1 and Dysthymic disorder F34.1 [facility] [address], [place] [address] Sep, [facility] [address] [place] [address] Sep, [facility] [id number] [place] [address] Sep, Routine gynecological examination V72.31 ; Cervical cancer screening Z12.4 ; Breast cancer screening Z12.39 ; Colon cancer screening Z12.11 ; Hypokalemia E87.6 ; Herpes simplex type 1 infection B00.9 and Abscess of right axilla L02.411 [facility] [id number] [place] [address] Sep, [address] [address] Sep, ADHD (attention deficit hyperactivity disorder), combined type F90.2 ; Generalized anxiety disorder F41.1 and Dysthymic disorder F34.1 [place] [id number] [place] [address] Aug, [facility] [id number] [place] [address] Aug, [address] [address] Aug, Generalized anxiety disorder F41.1 [place] [id number] [place] [address] Aug, ADHD (attention deficit hyperactivity disorder), combined type F90.2 ; Generalized anxiety disorder F41.1 and Dysthymic disorder F34.1 [place] [id number] [place] [address] Jul, Chronic pain syndrome G89.4 ; Hypertension I10 ; Hypokalemia E87.6 ; Asthma J45.909 and Nausea R11.0 [place] [id number] [place] [address] Jul, [facility] [id number] [place] [address] Jul, Asthma J45.909 [facility] [id number] [place] [address] Jul, ADHD (attention deficit hyperactivity disorder), combined type F90.2 ; Generalized anxiety disorder F41.1 and Dysthymic disorder F34.1 [facility] [address] [address] Jul, [facility] [address] [address] Jul, Hypertension I10 ; Arteriosclerotic coronary artery disease I25.10 ; Mixed hyperlipidemia E78.2 ; Other snf (current) drug therapy Z79.899 and Hyperglycemia R73.9 [facility] [id number] [place] [address] 16 Jun, 2016 Hypokalemia E87.6 and Hyperglycemia R73.9 [facility] [address] [address] 14 Jun, 2016 [place] [address] [address] 13 Jun, 2016 Abnormal kidney function N28.9 [facility] [address] [address] 09 Jun, 2016 [facility] [id number] [place] [address] Jun, ADHD (attention deficit hyperactivity disorder), combined type F90.2 ; Generalized anxiety disorder F41.1 and Dysthymic disorder F34.1 [facility] [address] [address] Jun, Generalized anxiety disorder F41.1 and Dysthymic disorder F34.1 [facility] [id number] [place] [address] Jun, Hypokalemia E87.6 [facility] [address] [address] May, Hypokalemia E87.6 ; Vertigo R42 and Hyperinsulinemia E16.1 [facility] [address] [address] May, [facility] [address] [address] May, Abnormal kidney function N28.9 ; Hyperinsulinemia E16.1 and Nausea R11.0 [facility] [address] [address] May, Hypokalemia E87.6 ; Nausea R11.0 ; Epigastric pain R10.13 ; Dehydration E86.0 ; Diaphoresis R61 and Right arm pain M79.601 [facility] [address] [address] May, [facility] [address] [address] May, Hypokalemia E87.6 [facility] [address] [address] May, Hypokalemia E87.6 [facility] [address] [address] Apr, [facility] [address] [address] Apr, ADHD (attention deficit hyperactivity disorder), combined type F90.2 ; Generalized anxiety disorder F41.1 and Dysthymic disorder F34.1 [facility] [address] [address] Apr, Right arm pain M79.601 and Hyperinsulinemia E16.1 [facility] [address] [address] Mar, [facility] [address] [address] Mar, [facility] [address], [place] [address] Mar, Hyperinsulinemia E16.1 ; Hyperlipidemia, unspecified hyperlipidemia type E78.5 ; Central venous catheter in place Z78.9 ; Generalized anxiety disorder F41.1 and Urinary tract infection, site not specified N39.0 [facility] [id number] [place] [address] Mar, ADHD (attention deficit hyperactivity disorder), combined type F90.2 ; Generalized anxiety disorder F41.1 and Dysthymic disorder F34.1 [facility] [id number] [place] [address] February, ADHD (attention deficit hyperactivity disorder), combined type F90.2 ; Generalized anxiety disorder F41.1 and Dysthymic disorder F34.1 [facility] [id number] [place] [address] February, [facility] [id number] [place] [address] February, [facility] [id number] [place] [address] February, Hypertension I10 and Weight gain R63.5 [facility] [address] [place] [address] February, Major depressive disorder, recurrent, moderate F33.1 and Generalized anxiety disorder F41.1 [facility] [address] [place] [address] February, ADHD (attention deficit hyperactivity disorder), combined type F90.2 ; Generalized anxiety disorder F41.1 and Dysthymic disorder F34.1 [facility] [id number] [place] [address] February, [facility] [id number] [place] [address] February, Asthma J45.909 ; Weight gain R63.5 ; Hypertension I10 ; Rheumatoid arthritis M06.9 and Chronic pain syndrome G89.4 [facility] [id number] [place] [address] Jan, ADHD (attention deficit hyperactivity disorder), combined type F90.2 ; Generalized anxiety disorder F41.1 and Dysthymic disorder F34.1 [facility] [id number] [place] [address] Dec, ADHD (attention deficit hyperactivity disorder), combined type F90.2 ; Generalized anxiety disorder F41.1 and Dysthymic disorder F34.1 [facility] [id number] [place] [address] Dec, [facility] [id number] [place] [id number] Nov, [facility] [id number] [place] [phone] Nov, [facility] [id number] [place] [phone] Nov, [facility] [id number] [place] [phone] Nov, [facility] [id number] [place] [id number] Oct, [facility] [id number] [place] [id number] Oct, [facility] [id number] [place] [id number] Oct, [facility] [id number] [place] [id number] Sep, [facility] [id number] [address] Sep, [facility] [id number] [place] [phone] Sep, Agoraphobia with panic disorder F40.01 ; Attention-deficit hyperactivity disorder, combined type F90.2 and Dysthymic disorder F34.1 [facility] [id number] [place] [phone] Aug, [facility] [id number] [address] Aug, [facility] [id number] [place] [id number] Aug, [facility] [id number] [place] [id number] Aug, Dysthymic disorder F34.1 ; Generalized anxiety disorder F41.1 and ADHD (attention deficit hyperactivity disorder), combined type F90.2 [place] [id number] [place] [phone] Aug, ADHD (attention deficit hyperactivity disorder), combined type F90.2 ; Generalized anxiety disorder F41.1 and Dysthymic disorder F34.1 [place] [id number] [place] [address] Jul, Urinary tract infection, site not specified N39.0 ; Hypotension, unspecified I95.9 and Breast cancer screening Z12.39 [place] [address], [place] [address] Jul, [facility] [id number] [place] [address] Jul, [facility] [id number] [place] [address] Jul, Urinary tract infection, site not specified N39.0 ; Nausea R11.0 ; Gastroenteritis K52.9 ; Renal failure N19 and Other hypotension I95.89 [facility] [id number] [place] [address] Jul, [facility] [id number] [place] [address] Jul, [facility] [address] [address] Jul, [facility] [id number] [place] [address] Jun, [facility] [id number] [place] [address] Jun, Major depression in partial remission 296.25 ; Generalized anxiety disorder 300.02 and ADHD, predominantly inattentive type 314.01 [place] [address] [id number] [place] [address] May, [place] [address] [place] [address] [id number] [place] [address] Apr, Major depressive disorder, recurrent episode, severe, without mention of psychotic behavior 296.33 ; Agoraphobia with panic disorder 300.21 and Generalized anxiety disorder 300.02 [place] [address] [place] [address] [id number] [place] [address] Apr, ADHD (attention deficit hyperactivity disorder), combined type 314.01 ; Generalized anxiety disorder 300.02 and Dysthymic disorder 300.4 [place] [id number] [place] [address] Apr, CAD (coronary artery disease) 414.00 ; HTN (hypertension) 401.9 and Tobacco use 305.1 [place] [id number] [place] [address] Apr, [facility] [address] [address] [id number] [place] [address] Mar, ADHD (attention deficit hyperactivity disorder), combined type 314.01 ; Generalized anxiety disorder 300.02 ; Dysthymic disorder 300.4 ; No condition on [place] II V71.09 ; Rheumatoid arthritis 714.0 ; Incontinence 788.30 ; Irritable bowel syndrome 564.1 ; Osteoporosis 733.00 and Chronic pain 338.29 [place] [id number] [place] [address] Mar, Agoraphobia with panic disorder 300.21 and Major depressive disorder, recurrent episode, moderate 296.32 [facility] [address] [address] Mar, [facility] [address] [place] [id number] [address] February, [facility] [address], [place] [address] February, Agoraphobia with panic disorder 300.21 and Major depressive disorder, recurrent episode, moderate 296.32 [facility] [address] [address] February, [facility] [address] [address] Jan, [facility] [address], [place] [address] Jan, [facility] [address], [place] [address] Dec, [facility] [address], [place] [address] Dec, [facility] [address], [place] [address] Dec, [facility] [address], [place] [address] Dec, [facility] [address] [address] Dec, [facility] [address], [place] [address] Dec, [facility] [address], [place] [address] Nov, [facility] [address], [place] [address] Nov, [facility] [place] [facility] [address] [id number] [place] [address] Nov, [facility] [place] [facility] [address] [id number] [place] [address] Nov, [facility] [place] [facility] [address] [id number] [place] [address] Nov, [facility] [place] [facility] [address] [id number] [place] [address] Nov, 2014 [facility] [place] [facility] [address] [id number] [place] [address] Nov, [facility] [place] [facility] [address] [id number] [place] [address] Nov, [facility] [place] [facility] [address] [id number] [place] [address] Oct, [facility] [place] [facility] [address] [id number] [place] [address] Oct, [facility] [place] [facility] [address] [id number] [place] [address] Oct, [facility] [place] [facility] [address] [facility] [id number] [place] [address] Oct, [facility] [place] [facility] [address] [id number] [place] [address] Oct, [facility] [place] [facility] [address] [id number] [place] [address] Oct, [facility] [place] [facility] [address] [id number] [place] [address] Sep, [facility] [place] [facility] [address] [id number] [place] [address] Sep, [facility] [place] [facility] [address] [facility] [id number] [place] [address] Sep, [facility] [place] [facility] [address] [id number] [place] [address] 16 Sep, 2014 [facility] [place] [facility] [address] [id number] [place] [address] 07 Sep, 2014 [facility] [place] [facility] [address] [id number] [place] [address] 05 Sep, 2014 [facility] [place] [facility] [address] [id number] [place] [address] 05 Sep, 2014 [facility] [place] [facility] [address] [id number] [place] [address] Aug, [facility] [place] [facility] [address] [id number] [place] [address] Aug, [facility] [place] [facility] [address] [id number] [place] [address] Aug, [facility] [place] [facility] [address] [id number] [place] [address] Aug, [facility] [place] [facility] [address] [id number] [place] [address] Aug, [facility] [place] [facility] [address] [id number] [place] [address] Aug, [facility] [place] [facility] [address] [id number] [place] [address] Jul, [facility] [place] [facility] [address] [id number] [place] [address] Jul, [facility] [place] [facility] [address] [id number] [place] [address] Jul, [facility] [place] [facility] [address] [id number] [place] [address] Jul, [facility] [place] [facility] [address] [id number] [place] [address] Jul, [facility] [place] [facility] [address] [id number] [place] [address] Jul, [facility] [place] [facility] [address] [id number] [place] [address] Jun, [facility] [place] [facility] [address] [id number] [place] [address] Jun, [facility] [place] [facility] [address] [id number] [place] [address] May, [facility] [place] [facility] [address] [id number] [place] [address] May, [facility] [place] [facility] [address] [id number] [place] [address] Apr, [facility] [place] [facility] [address] [id number] [place] [address] Apr, [facility] [place] [facility] [address] [id number] [place] [address] Apr, [facility] [place] [facility] [address] [id number] [place] [address] Apr, [facility] [place] [facility] [address] [id number] [place] [address] Mar, [facility] [place] [facility] [address] [id number] [place] [address] Mar, [facility] [place] [facility] [address] [id number] [place] [address] Mar, [facility] [place] [facility] [address] [id number] [place] [address] Mar, [facility] [place] [facility] [address] [id number] [place] [address] February, [facility] [place] [facility] [address] [id number] [place] [address] February, [facility] [place] [facility] [address] [id number] [place] [address] February, [facility] [place] [facility] [address] [id number] [place] [address] February, [facility] [place] [facility] [address] [id number] [place] [address] February, [facility] [place] [facility] [address] [id number] [place] [address] February, [facility] [place] [facility] [address] [id number] [place] [address] Jan, [facility] [place] [facility] [address] [id number] [place] [address] Jan, [facility] [place] [facility] [address] [id number] [place] [address] Dec, [facility] [place] [facility] [address] [id number] [place] [address] Dec, [facility] [place] [facility] [address] [id number] [place] [address] Nov, [facility] [place] [facility] [address] [id number] [place] [address] Nov, [facility] [place] [facility] [address] [id number] [place] [address] Oct, [facility] [place] [facility] [address] [id number] [place] [address] Oct, [facility] [place] [facility] [address] [id number] [place] [address] Oct, [facility] [place] [facility] [address] [id number] [place] [address] Oct, [facility] [place] [facility] [address] [id number] [place] [address] Sep, [facility] [place] [facility] [address] [id number] [place] [address] Sep, [facility] [place] [facility] [address] [id number] [place] [address] Sep, [facility] [place] [facility] [address] [id number] [place] [address] Sep, [facility] [place] [facility] [address] [id number] [place] [address] Sep, [facility] [place] [facility] [address] [id number] [place] [address] Sep, [facility] [place] [facility] [address] [id number] [place] [address] Sep, [facility] [place] [facility] [address] [id number] [place] [address] Sep, [facility] [place] [facility] [address] [id number] [place] [address] Aug, [facility] [address] [id number] [place] [address] Aug, [facility] [place] [facility] [address] [id number] [place] [address] Aug, [facility] [place] [facility] [address] [id number] [place] [address] Aug, [facility] [place] [facility] [address] [id number] [place] [address] Aug, [facility] [place] [facility] [address] [id number] [place] [address] Aug, [facility] [place] [facility] [address] [id number], [place] [address] Aug, [facility] [place] [facility] [address] [id number] [place] [address] Aug, [facility] [place] [facility] [address] [id number] [place] [address] Aug, [facility] [place] [facility] [address] [id number] [place] [address] Jul, [facility] [place] [facility] [address] [id number] [place] [address] Jun, [facility] [address] [id number] [place] [address] May, [facility] [place] [facility] [address] [id number] [place] [address] May, [facility] [place] [facility] [address] [id number] [place] [address] May, [facility] [place] [facility] [address] [id number] [place] [address] Apr, [facility] [place] [facility] [address] [id number] [place] [address] Mar, [facility] [place] [facility] [address] [id number] [place] [address] February, [facility] [place] [facility] [address] [id number] [place] [address] Oct, [facility] [place] [facility] [address] [id number] [place] [address] Oct, [facility] [place] [facility] [address] [id number] [place] [address] Oct, [facility] [place] [facility] [address] [id number] [place] [address] Oct, [facility] [place] [facility] [address] [id number] [place] [address] Oct, [facility] [place] [facility] [address] [id number] [place] [address] Oct, [facility] [place] [facility] [address] [id number] [place] [address] Sep, [facility] [place] [facility] [address] [id number] [place] [address] Sep, [facility] [place] [facility] [address] [id number] [place] [address] Aug, [facility] [place] [facility] [address] [id number] [place] [address] Aug, [facility] [place] [facility] [address] [id number] [place] [address] Jul, [facility] [place] [facility] [address] [id number] [place] [address] Jul, [facility] [place] [facility] [address] [id number] [place] [address] Jul, [facility] [place] [facility] [address] [id number] [place] [address] Jul, [facility] [place] [facility] [address] [id number] [place] [address] Jul, [facility] [place] [facility] [address] [id number] [place] [address] Jul, [facility] [place] [facility] [address] [id number] [place] [address] Jul, [facility] [place] [facility] [address] [id number] [place] [address] Jul, [facility] [place] [facility] [address] [id number] [place] [address] Jun, [facility] [place] [facility] [address] [id number] [place] [address] Jun, [facility] [place] [facility] [address] [id number] [place] [address] May, [facility] [place] [facility] [address] [id number] [place] [address] Apr, [facility] [place] [facility] [address] [id number] [place] [address] Mar, [facility] [place] [facility] [address] [id number] [place] [address] Mar, [facility] [place] [facility] [address] [id number] [place] [address] Mar, [facility] [place] [facility] [address] [id number] [place] [address] Mar, [facility] [place] [facility] [address] [id number] [place] [address] Jan, [facility] [place] [facility] [address] [id number] [place] [address] Nov, [facility] [place] [facility] [address] [id number] [place] [address] Nov, [facility] [place] [facility] [address] [id number] [place] [address] Nov, [facility] [place] [facility] [address] [id number] [place] [address] Oct, [facility] [place] [facility] [address] [id number] [place] [address] Sep, [facility] [place] [facility] [address] [id number] [place] [address] Sep, [facility] [place] [facility] [address] [id number] [place] [address] Aug, [facility] [place] [facility] [address] [id number] [place] [address] Aug, [facility] [place] [facility] [address] [id number], [place] [address] Aug, [facility] [place] [facility] [address] [id number], [place] [address] Aug, [facility] [place] [facility] [address] [id number] [place] [address] Jul, [facility] [place] [facility] [address] [id number], [place] [address] May, [facility] [place] [facility] [address] [id number] [place] [address] Jan, [facility] [place] [facility] [address] [facility] [id number] [place] [address] 11 Nov, 2010 [facility] [address] [facility] [id number], [place] [address] Apr, [facility] [address] [facility] [id number], [place] [address] Dec, [facility] [address] [facility] [id number], [place] [address] Nov, IMMUNIZATIONS No Known Immunizations SOCIAL HISTORY Never Assessed REASON FOR VISIT Snf discharge f/u, pt hurt right foot,states she can not walk on it at all. Pt is also really unstable. Can hardly walk due to dizziness. Mahendraheluzma DONG PLAN OF CARE Activity Details Follow Up 3 Months Reason:DM Pending Test Xray : Foot, Right 3 views (IN HOUSE) Pending Test Xray : Chest 2 View (IN HOUSE) VITAL SIGNS Height 67 in 2018-09-14 Weight 218 lbs 2018-09-14 Temperature 95.7 degrees Fahrenheit 2018-09-14 Heart Rate 81 bpm 2018-09-14 Respiratory Rate 18 2018-09-14 Oximetry 97 % 2018-09-14 BMI 34.14 kg/m2 2018-09-14 Blood pressure systolic 80 mmHg 2018-09-14 Blood pressure diastolic 60 mmHg 2018-09-14 MEDICATIONS Medication Instructions Dosage Frequency Start Date End Date Duration Status Eliquis 5 MG Orally 2 times a day 1 capsule 12h Active Triamcinolone Acetonide 55 MCG/ACT Nasally Once a day 1 spray in each nostril 24h 30 day(s) Active Xeljanz 5 MG Orally 2 times a day 1 tablet 12h 11 Dec, 2013 Sep, 30 days Not-Taking Ambien 5 mg Orally Once a day 1 tablet at bedtime as needed 24h 24 Jun, 2018 28 days Active Tramadol HCl 50 mg Orally every 4-6hrs 1-2 tablets as neede Active Simvastatin 40 MG Orally Once a day 1 tablet in the evening 24h 30 days Active MiraLax - Orally Once a day 17gm 24h Not-Taking Levocetirizine Dihydrochloride 5 mg Orally Once a day 1 tablet in the evening 24h Mar, 30 day(s) Active Furosemide 20 MG Orally Once a day 1 tablet 24h 30 day(s) Active Mucus Relief 400 mg Orally 3 times a day 1 tablet as needed 8h Not-Taking Venlafaxine HCl ER 150 MG Orally Once a day 2 capsules 24h Nov, Active Nicoderm CQ 7 MG/24HR Transdermal Once a day 1 patch to skin 24h 25 Jun, 2018 Sep, 30 days Not-Taking Alprazolam 0.5 MG Orally Twice a day as needed 1 tablet Jun, 28 days Active Haloperidol 0.5 MG Orally twice a day 1 tablet 12h Not-Taking Acetaminophen 500 mg Orally every 8 hrs 2 capsules as needed 8h Not-Taking Klor-Con M20 20 MEQ Orally Once a day 1 tablet with food 24h 30 day(s) Active Ventolin HFA 108 (90 Base) MCG/ACT Inhalation every 4 hrs 2 puffs as needed 4h Aug, Active Gabapentin 600 MG Orally 3 times a day 1 tablet 8h 30 days Active Albuterol Sulfate (2.5 MG/3ML) 0.083% Inhalation every 4 hours 3 ml as needed for cough or wheeze 4h 13 Jul, 2014 Active Montelukast Sodium 10 mg Orally Once a day at bedtime 1 tablet May, 30 day(s) Not-Taking Advair Diskus 100-50 MCG/DOSE Inhalation Twice a day 1 puff 12h Jul, 30 Active Dicyclomine HCl 20 mg Orally once a day 1 tablet as needed 24h February, Active Pantoprazole Sodium 40 mg Orally Once a day 1 tablet 24h 90 Active Metoprolol Tartrate 50 MG Orally Twice a day 1/2 tablet with food 12h Active RESULTS No Results PROCEDURES Procedure Date Ordered Result Body Site X-RAY EXAM OF FOOT Sep 14, 2018 X-RAY EXAM CHEST 2 VIEWS Sep 14, 2018 [facility] VISIT ESTABLISHED PATIENT Sep 14, 2018 INSTRUCTIONS MEDICATIONS ADMINISTERED No Known Medications MEDICAL (GENERAL) HISTORY Type Description Date Medical History Cardiovascular qkoklxmu-VFC-Jizomyzm, non-obstructive per HC (01/2011) Dr. Mendoza Medical History Stress test 03/07/13-Dr. Kelly Dietrich normal Medical History Hypertension Medical History Asthma Medical History Gastrointestinal Disorder--IBS, GERD, Hx of fatty liver Medical History Hernia 1979 Medical History Cervical dysplasia 02/16-Pap LGSIL/Brohman-mild dysplasia Medical History Hyperlipidemia Medical History Rheumatoid [...] Kidney injury 07/10/15-07/11/2015 Hospitalization History Symptomatic Hypokalemia/Nause-Via [facility] 05/13/16 Hospitalization History Stroke 05/03/2017 Hospitalization History stroke 08/24/2017--09/01/2017
--- OUTSIDE RECORDS SUMMARY | 2019-05-22 07:40 | XMS REPORT ---
Author Author LORI SNOWDEN [facility] Address [address] [place] [address] Care Team Providers Care Welding Supervisor Name Role Phone LORI SNOWDEN Unavailable PROBLEMS Type Condition ICD9-CM Code FVQ26-LQ Code Onset Dates Condition Status SNOMED Code Problem Hemiparesis of left nondominant side as late effect of cerebral infarction I69.354 Active 003614413 Problem Morbid (severe) obesity due to excess calories E66.01 Active 741450770 Problem Generalized anxiety disorder F41.1 Active 36847929 Problem ADHD (attention deficit hyperactivity disorder), combined type F90.2 Active 89949551 Problem Chronic pain syndrome G89.4 Active 755309799 Problem Rheumatoid arthritis M06.9 Active 18618308 Problem Gastroesophageal reflux disease with esophagitis K21.0 Active 417310381 Problem Asthma J45.909 Active 134459187 Problem Anxiety F41.9 Active 47367582 Problem Hypertension I10 Active 30856430 Problem Irritable bowel syndrome with diarrhea K58.0 Active 795354073 Problem Mild episode of recurrent major depressive disorder F33.0 Active 041923953 Problem Panic attacks F41.0 Active 575680622 Problem Hemiplegia affecting left nondominant side G81.94 Active Problem Chronic obstructive pulmonary disease J44.9 Active 47876721 Problem Hyperinsulinemia E16.1 Active 68911944 Problem Mixed hyperlipidemia E78.2 Active 917032858 Problem Arteriosclerotic coronary artery disease I25.10 Active 26735462 Problem Primary insomnia F51.01 Active 0512994 Problem Seasonal allergies J30.2 Active 080778327 Problem Unsteady gait R26.81 Active 70237408 Problem Paroxysmal atrial fibrillation I48.0 Active 426452533 Problem Obstructive sleep apnea G47.33 Active 82862361 Problem Other longterm (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 Z79.899 Active 678434573 Problem Neuropathy G62.9 Active 125758219 Problem Other insomnia G47.09 Active 381822812 Problem Sleep apnea in adult G47.30 Active 17262637 Problem Rheumatoid arthritis involving multiple sites, unspecified rheumatoid factor presence M06.9 Active 371441770 Problem Cerebrovascular accident (CVA), unspecified mechanism I63.9 Active 721488867 Problem Dysthymic disorder F34.1 Active 73420834 ALLERGIES No Information ENCOUNTERS Encounter Location Date Diagnosis [facility] [id number] [address] Sep, [facility] [id number] [place] [address] Aug, [facility] [id number] [place] [address] Aug, [facility] [id number] [place] [address] Aug, [facility] [id number] [place] [address] Aug, [facility] [id number] [place] [address] Aug, [facility] [id number] [place] [address] Jul, [facility] [id number] [place] [address] Jul, [facility] [id number] [place] [address] Jul, [facility] [id number] [place] [address] Jul, [facility] [id number] [place] [address] Jul, [facility] [id number] [place] [address] Jul, [facility] [address] [place] [id number] Jul, Hemiplegia affecting left nondominant side G81.94 ; Chronic obstructive pulmonary disease J44.9 and Weakness R53.1 [facility] [id number] [place] [address] Jul, [facility] [address] [place] [id number] Jul, Weakness R53.1 ; Paroxysmal atrial fibrillation I48.0 and Unsteady gait R26.81 [address] [address] Jul, Tobacco abuse Z72.0 [facility] [address] [place] [id number] Jun, History of acute respiratory failure Z87.09 ; Weight gain R63.5 and Tobacco abuse Z72.0 [facility] [id number] [place] [address] Jun, [address] [address] May, Primary insomnia F51.01 [place] [facility] [id number] [place] [address] May, Mild episode of recurrent major depressive disorder F33.0 [place] [id number] [place] [address] May, [place] [facility] [id number] [place] [address] May, Chronic obstructive pulmonary disease, unspecified COPD type J44.9 ; Primary insomnia F51.01 ; Fatigue, unspecified type R53.83 and Weight gain R63.5 [place] [id number] [place] [address] May, Thrush B37.0 [place] [id number] [place] [address] May, Mild episode of recurrent major depressive disorder F33.0 and Generalized anxiety disorder F41.1 [place] [id number] [place] [address] May, Thrush B37.0 [facility] [id number] [place] [address] Apr, Cough R05 [facility] [address] [address] Mar, Mild episode of recurrent major depressive disorder F33.0 [facility] [address] [address] Mar, Mild episode of recurrent major depressive disorder F33.0 and Generalized anxiety disorder F41.1 [address] [address] Mar, Seasonal allergies J30.2 [facility] [address] [address] Mar, Seasonal allergies J30.2 [facility] [address] [address] February, Generalized anxiety disorder F41.1 [facility] [id number] [place] [address] February, Cough R05 and Seasonal allergies J30.2 [facility] [id number] [place] [address] February, Generalized anxiety disorder F41.1 and Mild episode of recurrent major depressive disorder F33.0 [facility] [id number] [place] [address] February, Other longterm (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 Z79.899 ; Anxiety F41.9 ; Panic attacks F41.0 and Irritable bowel syndrome with diarrhea K58.0 [facility] [id number] [place] [address] February, [facility] [id number] [place] [address] Jan, Mixed hyperlipidemia E78.2 [facility] [address] [place] [address] Jan, [facility] [id number] [place] [address], [place] [address] Jan, [facility] [id number] [place] [address] Jan, [facility] [address] [place] [address] Jan, [facility] [id number] [place] [address], [place] [address] Dec, [facility] [id number] [place] [address], [place] [address] Dec, [facility] [id number] [place] [address], [place] [address] Dec, [facility] [id number] [place] [address] Nov, Dysthymic disorder F34.1 [facility] [id number] [place] [address] Oct, [facility] [id number] [place] [address] Oct, [facility] [id number] [place] [address] Oct, [facility] [address] [place] [address] Oct, Diarrhea, unspecified type R19.[address] [facility] [id number] [place] [address] Oct, [facility] [id number] [place] [address] Sep, [facility] [id number] [place] [address] Sep, [facility] [id number] [place] [address] Sep, Anxiety F41.[address] [address] Sep, Cerebrovascular accident (CVA), unspecified mechanism I63.9 ; Mixed hyperlipidemia E78.2 ; Gastroesophageal reflux disease with esophagitis K21.0 and Anxiety F41.9 [address] [address] Sep, [address] [address] Aug, Chronic obstructive pulmonary disease, unspecified J44.9 ; Asthma J45.909 ; Nausea R11.0 ; Dysthymic disorder F34.1 ; Cerebrovascular accident (CVA), unspecified mechanism I63.9 and Rheumatoid arthritis M06.[address] [address] Aug, Nausea R11.0 ; Encounter for immunization Z23 ; Sleep apnea in adult G47.30 ; Rheumatoid arthritis involving multiple sites, unspecified rheumatoid factor presence M06.9 ; Generalized anxiety disorder F41.1 ; Dysthymic disorder F34.1 and Asthma J45.[id number] [place] [address] Jul, [address] [address] May, ADHD (attention deficit hyperactivity disorder), combined type F90.2 ; Generalized anxiety disorder F41.1 and Persistent depressive disorder F34.[address] [address] May, Cerebrovascular accident (CVA), unspecified mechanism I63.9 [id number] [place] [address] Apr, Mixed hyperlipidemia E78.2 and Cerebrovascular accident (CVA), unspecified mechanism I63.9 [place] [id number] [place] [address] Apr, Generalized anxiety disorder F41.1 [facility] [id number] [place] [address] Apr, Bronchitis J40 and Tobacco use Z72.0 [address] [address] [address] Apr, Mixed hyperlipidemia E78.2 [address] [address] Apr, 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 designer (current) drug therapy Z79.899 [address] [address] [address] Apr, [address] [address] [address] Apr, Generalized anxiety disorder F41.1 [place] [id number] [place] [address] Apr, Obstructive sleep apnea G47.33 and Hyperinsulinemia E16.1 [address] [address] Apr, ADHD (attention deficit hyperactivity disorder), combined type F90.2 ; Generalized anxiety disorder F41.1 and Persistent depressive disorder F34.1 [place] [id number] [place] [address] Mar, [facility] [id number] [place] [address] Mar, Generalized anxiety disorder F41.1 [place] [place] [id number] [place] [address] Mar, Tarsal tunnel syndrome of both lower extremities G57.53 [address] [address] February, [facility] [id number] [place] [address] February, [facility] [address] [address] February, Asthma J45.909 [facility] [address] [address] February, Generalized anxiety disorder F41.1 [facility] [address] [address] February, Hypoxemia R09.02 ; Hyperglycemia R73.9 ; Rheumatoid arthritis M06.9 and Generalized anxiety disorder F41.1 [address] [address] February, [address] [place] [address] Jan, Chronic obstructive pulmonary disease, unspecified J44.9 [address] [address] Jan, Chronic pain syndrome G89.4 [address] [address] Jan, Hypoxemia R09.02 [address] [address] Jan, [address] [place] [address] Jan, Chronic obstructive pulmonary disease, unspecified J44.9 ; Hypoxemia R09.02 ; Other insomnia G47.09 and Left anterior shoulder pain M25.512 [address] [address] Jan, Numbness in feet R20.0 and Neuropathy G62.9 [address] [address] Jan, [address] [place] [address] Dec, Acute pain of left shoulder M25.512 [facility] [id number] [place] [address] Dec, Acute pain of left shoulder M25.512 [facility] [id number] [place] [address] Dec, Generalized anxiety disorder F41.1 [facility] [id number] [place] [address] Dec, Generalized anxiety disorder F41.1 [facility] [id number] [place] [address] Nov, ADHD (attention deficit hyperactivity disorder), combined type F90.2 ; Generalized anxiety disorder F41.1 and Persistent depressive disorder F34.1 [facility] [id number] [place] [address] Nov, Acute pain of left shoulder M25.512 [facility] [id number] [place] [address] Nov, ADHD (attention deficit hyperactivity disorder), combined type F90.2 ; Generalized anxiety disorder F41.1 and Persistent depressive disorder F34.1 [facility] [address] [address] Nov, Chronic pain syndrome G89.4 [facility] [id number] [place] [address] 13 Nov, 2016 Chronic pain syndrome G89.4 [facility] [address] [place] [address] 08 Nov, 2016 Acute pain of left shoulder M25.512 [facility] [address] [place] [address] 07 Nov, 2016 Generalized anxiety disorder F41.1 [facility] [id number] [place] [address] Nov, Acute pain of left shoulder M25.512 [place] [id number] [place] [address] Nov, ADHD (attention deficit hyperactivity disorder), combined type F90.2 ; Generalized anxiety disorder F41.1 and Persistent depressive disorder F34.1 [address] [address] Nov, Acute pain of left shoulder M25.512 ; Generalized anxiety disorder F41.1 ; Chronic pain syndrome G89.4 ; Hyperinsulinemia E16.1 ; Pain of left foot M79.672 and Pain in right foot M79.671 [address] [id number] [place] [address] Oct, ADHD (attention deficit hyperactivity disorder), combined type F90.2 ; Generalized anxiety disorder F41.1 and Dysthymic disorder F34.1 [address] [id number] [place] [address] Sep, [place] [id number] [place] [address] Sep, [place] [id number] [place] [address] Sep, Routine gynecological examination V72.31 ; Cervical cancer screening Z12.4 ; Breast cancer screening Z12.39 ; Colon cancer screening Z12.11 ; Hypokalemia E87.6 ; Herpes simplex type 1 infection B00.9 and Abscess of right axilla L02.411 [place] [id number] [place] [address] Sep, [address] [address] Sep, ADHD (attention deficit hyperactivity disorder), combined type F90.2 ; Generalized anxiety disorder F41.1 and Dysthymic disorder F34.1 [address] [place] [address] Aug, [facility] [id number] [place] [address] Aug, [facility] [id number] [place] [address] Aug, Generalized anxiety disorder F41.1 [place] [id number] [place] [address] Aug, ADHD (attention deficit hyperactivity disorder), combined type F90.2 ; Generalized anxiety disorder F41.1 and Dysthymic disorder F34.1 [address] [address] Jul, Chronic pain syndrome G89.4 ; Hypertension I10 ; Hypokalemia E87.6 ; Asthma J45.909 and Nausea R11.0 [place] [id number] [place] [address] Jul, [place] [id number] [place] [address] Jul, Asthma J45.909 [place] [id number] [place] [address] Jul, ADHD (attention deficit hyperactivity disorder), combined type F90.2 ; Generalized anxiety disorder F41.1 and Dysthymic disorder F34.1 [place] [id number] [place] [address] Jul, [place] [id number] [place] [address] Jul, Hypertension I10 ; Arteriosclerotic coronary artery disease I25.10 ; Mixed hyperlipidemia E78.2 ; 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 designer (current) drug therapy Z79.899 and Hyperglycemia R73.9 [place] [id number] [place] [address] Jun, Hypokalemia E87.6 and Hyperglycemia R73.9 [place] [id number] [place] [address] 14 Jun, 2016 [place] [address] [address] Jun, Abnormal kidney function N28.9 [place] [address] [address] Jun, [place] [address] [address] Jun, ADHD (attention deficit hyperactivity disorder), combined type F90.2 ; Generalized anxiety disorder F41.1 and Dysthymic disorder F34.1 [place] [address] [address] Jun, Generalized anxiety disorder F41.1 and Dysthymic disorder F34.1 [place] [address] [address] Jun, Hypokalemia E87.6 [place] [address] [address] May, Hypokalemia E87.6 ; Vertigo R42 and Hyperinsulinemia E16.[address] [address] May, [place] [address] [address] May, Abnormal kidney function N28.9 ; Hyperinsulinemia E16.1 and Nausea R11.[address] [address] May, Hypokalemia E87.6 ; Nausea R11.0 ; Epigastric pain R10.13 ; Dehydration E86.0 ; Diaphoresis R61 and Right arm pain M79.601 [place] [address] [address] May, [place] [address] May, Hypokalemia E87.6 [place] [id number] [place] [address] May, Hypokalemia E87.6 [place] [place] [address] Apr, [place] [id number] [place] [address] Apr, ADHD (attention deficit hyperactivity disorder), combined type F90.2 ; Generalized anxiety disorder F41.1 and Dysthymic disorder F34.1 [place] [id number] [place] [address] Apr, Right arm pain M79.601 and Hyperinsulinemia E16.1 [place] [id number] [place] [address] Mar, [place] [id number] [place] [address] Mar, [place] [id number] [place] [address] Mar, Hyperinsulinemia E16.1 ; Hyperlipidemia, unspecified hyperlipidemia type E78.5 ; Central venous catheter in place Z78.9 ; Generalized anxiety disorder F41.1 and Urinary tract infection, site not specified N39.0 [place] [id number] [place] [address] Mar, ADHD (attention deficit hyperactivity disorder), combined type F90.2 ; Generalized anxiety disorder F41.1 and Dysthymic disorder F34.1 [place] [address] [place] [address] February, ADHD (attention deficit hyperactivity disorder), combined type F90.2 ; Generalized anxiety disorder F41.1 and Dysthymic disorder F34.1 [place] [address] [place] [address] February, [place] [address] [address] February, [place] [address] [place] [address] February, Hypertension I10 and Weight gain R63.5 [place] [id number] [place] [address] February, Major depressive disorder, recurrent, moderate F33.1 and Generalized anxiety disorder F41.1 [place] [address] [place] [address] February, ADHD (attention deficit hyperactivity disorder), combined type F90.2 ; Generalized anxiety disorder F41.1 and Dysthymic disorder F34.1 [place] [address] [place] [address] February, [place] [id number] [place] [id number] February, Asthma J45.909 ; Weight gain R63.5 ; Hypertension I10 ; Rheumatoid arthritis M06.9 and Chronic pain syndrome G89.4 [place] [id number] [address] Jan, ADHD (attention deficit hyperactivity disorder), combined type F90.2 ; Generalized anxiety disorder F41.1 and Dysthymic disorder F34.1 [place] [id number] [place] [phone] Dec, ADHD (attention deficit hyperactivity disorder), combined type F90.2 ; Generalized anxiety disorder F41.1 and Dysthymic disorder F34.1 [place] [id number] [place] [phone] Dec, [place] [id number] [address] Nov, [place] [address] [place] [id number] [address] Nov, [facility] [id number] [address] Nov, [facility] [address] [address] Nov, [facility] [id number] [address] Oct, [facility] [id number] [address] Oct, [facility] [id number] [place] [phone] Oct, [facility] [id number] [address] Sep, [facility] [id number] [address] Sep, [facility] [id number] [address] Sep, Agoraphobia with panic disorder F40.01 ; Attention-deficit hyperactivity disorder, combined type F90.2 [address] F[address].1 [facility] [address] [address] Aug, [facility] [address] [address] Aug, [facility] [id number] [address] Aug, [facility] [address] [id number] [address] Aug, Dysthymic disorder F34.1 ; Generalized anxiety disorder F41.1 and ADHD (attention deficit hyperactivity disorder), combined type F90.2 [facility] [address] [address] Aug, ADHD (attention deficit hyperactivity disorder), combined type F90.2 ; Generalized anxiety disorder F41.1 and Dysthymic disorder F34.1 [place] [id number] [place] [address] Jul, Urinary tract infection, site not specified N39.0 ; Hypotension, unspecified I95.9 and Breast cancer screening Z12.39 [place] [address] [address] Jul, [place] [id number] [place] [address] Jul, [place] [id number] [place] [address] Jul, Urinary tract infection, site not specified N39.0 ; Nausea R11.0 ; Gastroenteritis K52.9 ; Renal failure N19 and Other hypotension I95.89 [place] [id number] [place] [address] Jul, [facility] [id number] [place] [address] Jul, [place] [id number] [place] [address] Jul, [place] [id number] [place] [address] Jun, [place] [id number] [place] [address] Jun, Major depression in partial remission 296.25 ; Generalized anxiety disorder 300.02 and ADHD, predominantly inattentive type 314.01 [place] [id number] [place] [address] May, [place] [id number] [place] [address] Apr, Major depressive disorder, recurrent episode, severe, without mention of psychotic behavior 296.33 ; Agoraphobia with panic disorder 300.21 and Generalized anxiety disorder 300.02 [facility] [address] [address] Apr, ADHD (attention deficit hyperactivity disorder), combined type 314.01 ; Generalized anxiety disorder 300.02 and Dysthymic disorder 300.4 [facility] [id number] [place] [address] Apr, CAD (coronary artery disease) 414.00 ; HTN (hypertension) 401.9 [address] [facility] [id number] [place] [address] Apr, [place] [id number] [place] [address] Mar, ADHD (attention deficit hyperactivity disorder), combined type 314.01 ; Generalized anxiety disorder 300.02 ; Dysthymic disorder 300.4 ; No condition on [place] V71.09 ; Rheumatoid arthritis 714.0 ; Incontinence 788.30 ; Irritable bowel syndrome 564.1 ; Osteoporosis 733.[address] [facility] [id number] [place] [address] Mar, Agoraphobia with panic disorder 300.21 and Major depressive disorder, recurrent episode, moderate 296.32 [facility] [address] [address] Mar, [facility] [id number] [place] [address] February, [facility] [id number] [place] [address] February, Agoraphobia with panic disorder 300.21 and Major depressive disorder, recurrent episode, moderate 296.32 [facility] [id number] [place] [address] February, [facility] [id number] [place] [address] Jan, [facility] [place] [facility] [address] [id number] [place] [address] Jan, [facility] [place] [facility] [address] [id number] [place] [address] Dec, [facility] [place] [facility] [address] [id number] [place] [address] Dec, [facility] [place] [facility] [address] [id number] [place] [address] Dec, [facility] [place] [facility] [address] [id number] [place] [address] Dec, [facility] [place] [facility] [address] [id number] [place] [address] Dec, [facility] [place] [facility] [address] [facility] [id number] [place] [address] Dec, [facility] [place] [facility] [address] [id number] [place] [address] Nov, 2014 [facility] [place] [facility] [address] [id number] [place] [address] Nov, 2014 [facility] [place] [facility] [address] [facility] [id number] [place] [address] Nov, 2014 [facility] [place] [facility] [address] [facility] [id number] [place] [address] Nov, 2014 [facility] [place] [facility] [address] [id number] [place] [address] Nov, 2014 [facility] [place] [facility] [address] [id number] [place] [address] Nov, 2014 [facility] [place] [facility] [address] [id number] [place] [address] Nov, 2014 [facility] [place] [facility] [address] [facility] [id number] [place] [address] Nov, 2014 [facility] [place] [facility] [address] [facility] [id number] [place] [address] Oct, [facility] [place] [facility] [address] [id number] [place] [address] Oct, [facility] [place] [facility] [address] [id number] [place] [address] Oct, [facility] [place] [facility] [address] [id number] [place] [address] Oct, [facility] [place] [facility] [address] [id number] [place] [address] Oct, [facility] [place] [facility] [address] [id number] [place] [address] Oct, [facility] [place] [facility] [address] [id number] [place] [address] Sep, [facility] [place] [facility] [address] [id number] [place] [address] Sep, [facility] [place] [facility] [address] [id number] [place] [address] Sep, [facility] [place] [facility] [address] [id number] [place] [address] Sep, [facility] [place] [facility] [address] [facility] [id number] [place] [address] Sep, [facility] [place] [facility] [address] [id number] [place] [address] Sep, [facility] [place] [facility] [address] [id number] [place] [address] Sep, [facility] [place] [facility] [address] [id number] [place] [address] Aug, [facility] [place] [facility] [address] [id number] [place] [address] Aug, [facility] [place] [facility] [address] [id number] [place] [address] Aug, [facility] [place] [facility] [address] [id number] [place] [address] Aug, [facility] [place] [facility] [address] [id number] [place] [address] Aug, [facility] [place] [facility] [address] [id number] [place] [address] Aug, [facility] [place] [facility] [address] [id number] [place] [address] Jul, [facility] [place] [facility] [address] [id number] [place] [address] Jul, [facility] [place] [facility] [address] [id number] [place] [address] Jul, [facility] [place] [facility] [address] [id number] [place] [address] Jul, [facility] [place] [facility] [address] [id number] [place] [address] Jul, [facility] [place] [facility] [address] [id number] [place] [address] Jul, [facility] [place] [facility] [address] [id number] [place] [address] Jun, [facility] [place] [facility] [address] [id number] [place] [address] Jun, [facility] [place] [facility] [address] [id number] [place] [address] May, [facility] [place] [facility] [address] [id number] [place] [address] May, [facility] [place] [facility] [address] [id number] [place] [address] Apr, [facility] [place] [facility] [address] [id number] [place] [address] Apr, [facility] [place] [facility] [address] [id number] [place] [address] Apr, [facility] [place] [facility] [address] [id number] [place] [address] Apr, [facility] [place] [facility] [address] [id number] [place] [address] Mar, [facility] [place] [facility] [address] [id number] [place] [address] Mar, [facility] [place] [facility] [address] [id number] [place] [address] Mar, [facility] [place] [facility] [address] [id number] [place] [address] Mar, [facility] [place] [facility] [address] [id number] [place] [address] February, [facility] [place] [facility] [address] [id number] [place] [address] February, [facility] [place] [facility] [address] [id number] [place] [address] February, [facility] [place] [facility] [address] [id number] [place] [address] February, [facility] [place] [facility] [address] [id number] [place] [address] February, [facility] [place] [facility] [address] [id number] [place] [address] February, [facility] [place] [facility] [address] [id number] [place] [address] Jan, [facility] [place] [facility] [address] [id number] [place] [address] Jan, [facility] [place] [facility] [address] [id number] [place] [address] Dec, [facility] [place] [facility] [address] [id number] [place] [address] Dec, [facility] [place] [facility] [address] [id number] [place] [address] Nov, [facility] [address] [id number] [place] [address] Nov, [facility] [address] [id number] [place] [address] Oct, [facility] [address] [id number] [place] [address] Oct, [facility] [address] [id number] [place] [address] Oct, [facility] [address] [id number] [place] [address] Oct, [facility] [address] [id number] [place] [address] Sep, [facility] [address] [id number] [place] [address] Sep, [facility] [address] [id number] [place] [address] Sep, [facility] [address] [id number] [place] [address] Sep, [facility] [address] [facility] [id number] [place] [address] Sep, [facility] [address] [id number] [place] [address] Sep, [facility] [address] [id number] [place] [address] Sep, [facility] [address] [id number] [place] [address] Sep, [facility] [address] [id number] [place] [address] Aug, [facility] [address] [id number] [place] [address] Aug, [facility] [place] [facility] [address] [id number] [place] [address] Aug, [facility] [place] [facility] [address] [id number] [place] [address] Aug, [facility] [place] [facility] [address] [id number] [place] [address] Aug, [facility] [place] [facility] [address] [id number] [place] [address] Aug, [facility] [place] [facility] [address] [id number] [place] [address] Aug, [facility] [place] [facility] [address] [id number] [place] [address] Aug, [facility] [place] [facility] [address] [id number] [place] [address] Aug, [facility] [place] [facility] [address] [id number] [address] Jul, [facility] [place] [facility] [address] [id number] [place] [address] Jun, [facility] [place] [facility] [address] [id number] [address] May, [facility] [place] [facility] [address] [id number] [address] May, [facility] [place] [facility] [address] [id number] [address] May, [facility] [place] [facility] [address] [id number] [address] Apr, [facility] [place] [facility] [address] [id number] [address] Mar, [facility] [place] [facility] [address] [id number] [address] February, [facility] [place] [facility] [address] [id number] [address] 17 Oct, 2012 [facility] [place] [facility] [address] [id number] [place] [address] 16 Oct, 2012 [facility] [place] [facility] [address] [id number] [place] [address] Oct, [facility] [place] [facility] [address] [facility] [id number] [place] [address] Oct, [facility] [place] [facility] [address] [id number] [place] [address] Oct, [facility] [place] [facility] [address] [facility] [id number] [place] [address], [place] [address] Oct, [facility] [place] [facility] [address] [facility] [id number] [place] [address] Sep, [facility] [id number] [address] Sep, [facility] [place] [facility] [address] [facility] [id number] [place] [address] Aug, [facility] [place] [facility] [id number] [address] Aug, [facility] [place] [facility] [id number] [place] [address] Jul, [facility] [place] [facility] [address] [facility] [id number] [address] Jul, [facility] [place] [facility] [address] [facility] [id number] [place] [address] Jul, [facility] [place] [facility] [address] [id number] [place] [address] Jul, [facility] [place] [facility] [address] [facility] [id number] [place] [address] Jul, [facility] [place] [facility] [address] [facility] [id number] [place] [address] Jul, [facility] [place] [facility] [address] [id number] [place] [address] Jul, [facility] [place] [facility] [address] [id number] [place] [address] Jul, [facility] [place] [facility] [address] [id number] [place] [address] 16 Jun, 2012 [facility] [place] [facility] [address] [id number] [place] [address] Jun, [facility] [place] [facility] [address] [id number] [place] [address] May, [facility] [place] [facility] [address] [id number] [place] [address] Apr, [facility] [place] [facility] [address] [id number] [place] [address] Mar, [facility] [place] [facility] [address] [id number] [place] [address] Mar, [facility] [place] [facility] [address] [id number] [place] [address] Mar, [facility] [place] [facility] [address] [id number] [place] [address] Mar, [facility] [place] [facility] [address] [id number] [place] [address] Jan, [facility] [place] [facility] [address] [id number] [place] [address] Nov, [facility] [place] [facility] [address] [id number] [place] [address] Nov, [facility] [place] [facility] [address] [id number] [place] [address] Nov, [facility] [place] [facility] [address] [id number] [place] [address] Oct, [facility] [place] [facility] [address] [id number] [address] Sep, [facility] [address] [id number] [address] Sep, [facility] [address] [address] Aug, [facility] [address] [address] Aug, [facility] [address] [address] Aug, [facility] [address] [address] Aug, [facility] [address]005[address] [address] Jul, [facility] [address]005[address] [address] May, [facility] [address]005[address] [address] Jan, [facility] [address] [address] Nov, [facility] [address] [address] Apr, [facility] [address] [id number] [address] Dec, [facility] [address] [address] Nov, IMMUNIZATIONS No Known Immunizations SOCIAL HISTORY Never Assessed REASON FOR VISIT Pharmacy Change PLAN OF CARE VITAL SIGNS MEDICATIONS Medication Instructions Dosage Frequency Start Date End Date Duration Status Simvastatin 40 MG Orally Once a day 1 tablet in the evening 24h 30 days Active Cyclobenzaprine HCl 10 MG Orally 2 times a day 1 tablet as needed 12h 30 days Active Gabapentin 600 MG Orally 3 times a day 1 tablet 8h 30 days Active Ambien 5 mg Orally Once a day 1 tablet at bedtime as needed 24h 24 Jun, 2018 28 days Active Xeljanz 5 MG Orally 2 times a day 1 tablet 12h 11 Dec, 2013 30 days Active RESULTS No Results PROCEDURES No Known procedures INSTRUCTIONS MEDICATIONS ADMINISTERED No Known Medications MEDICAL (GENERAL) HISTORY Type Description Date Medical History Cardiovascular nqbrlyml-MEB-Wcjracdj, non-obstructive per HC (01/2011) Dr. Mendoza Medical History Stress test 03/07/13-Dr. Kelly Dietrich normal Medical History Hypertension Medical History Asthma Medical History Gastrointestinal Disorder--IBS, GERD, Hx of fatty liver Medical History Hernia 1979 Medical History Cervical dysplasia 02/16-Pap LGSIL/[place]-mild dysplasia Medical History Hyperlipidemia Medical History Rheumatoid [...]
--- OUTSIDE RECORDS SUMMARY | 2019-05-22 07:41 | XMS REPORT ---
Author Author LORI SNOWDEN [facility] Address [address] [place] [address] Care Team Providers Care Environmental Research Scientist Name Role Phone LORI SNOWDEN Unavailable PROBLEMS Type Condition ICD9-CM Code SQQ93-YL Code Onset Dates Condition Status SNOMED Code Problem Hemiparesis of left nondominant side as late effect of cerebral infarction I69.354 Active 731388338 Problem Morbid (severe) obesity due to excess calories E66.01 Active 049490862 Problem Generalized anxiety disorder F41.1 Active 31811550 Problem ADHD (attention deficit hyperactivity disorder), combined type F90.2 Active 15773466 Problem Chronic pain syndrome G89.4 Active 456301167 Problem Rheumatoid arthritis M06.9 Active 81640105 Problem Gastroesophageal reflux disease with esophagitis K21.0 Active 017515188 Problem Asthma J45.909 Active 644955592 Problem Anxiety F41.9 Active 20669989 Problem Hypertension I10 Active 60651970 Problem Irritable bowel syndrome with diarrhea K58.0 Active 244836951 Problem Mild episode of recurrent major depressive disorder F33.0 Active 168242204 Problem Panic attacks F41.0 Active 952415005 Problem Hemiplegia affecting left nondominant side G81.94 Active Problem Chronic obstructive pulmonary disease J44.9 Active 73356245 Problem Hyperinsulinemia E16.1 Active 00785019 Problem Mixed hyperlipidemia E78.2 Active 399521284 Problem Arteriosclerotic coronary artery disease I25.10 Active 94675767 Problem Primary insomnia F51.01 Active 2258087 Problem Seasonal allergies J30.2 Active 967180863 Problem Unsteady gait R26.81 Active 98864630 Problem Paroxysmal atrial fibrillation I48.0 Active 762401854 Problem Obstructive sleep apnea G47.33 Active 41962260 Problem Other assisted (current) drug therapy Z79.899 Active 784648421 Problem Neuropathy G62.9 Active 559566655 Problem Other insomnia G47.09 Active 277526065 Problem Sleep apnea in adult G47.30 Active 43848481 Problem Rheumatoid arthritis involving multiple sites, unspecified rheumatoid factor presence M06.9 Active 524290575 Problem Cerebrovascular accident (CVA), unspecified mechanism I63.9 Active 341681383 Problem Dysthymic disorder F34.1 Active 97533183 ALLERGIES No Information ENCOUNTERS Encounter Location Date Diagnosis [facility] [id number] [place] [address] Sep, [facility] [id number] [place] [address] Aug, [facility] [address] [address] Aug, [facility] [address] [address] Aug, [facility] [id number] [place] [address] Aug, [facility] [id number] [place] [address] Jul, [facility] [address] [address] Jul, [facility] [id number] [place] [address] Jul, [facility] [id number] [place] [address] Jul, [facility] [id number] [place] [address] Jul, [facility] [id number] [place] [address] Jul, [facility] [address] [place] [id number] Jul, Hemiplegia affecting left nondominant side G81.94 ; Chronic obstructive pulmonary disease J44.9 and Weakness R53.1 [facility] [id number] [place] [address] Jul, Via [facility] [address] [place] [id number] Jul, Weakness R53.1 ; Paroxysmal atrial fibrillation I48.0 and Unsteady gait R26.81 [address], [place] [address] Jul, Tobacco abuse Z72.0 [facility] [address] [place] [id number] Jun, History of acute respiratory failure Z87.09 ; Weight gain R63.5 and Tobacco abuse Z72.0 [facility] [id number] [place] [address] Jun, [facility] [id number] [place] [address] May, Primary insomnia F51.01 [facility] [id number] [place] [address] May, Mild episode of recurrent major depressive disorder F33.0 [facility] [facility] [address], [place] [address] May, [facility] [id number] [place] [address] May, Chronic obstructive pulmonary disease, unspecified COPD type J44.9 ; Primary insomnia F51.01 ; Fatigue, unspecified type R53.83 and Weight gain R63.5 [id number] [place] [address] May, Thrush B37.0 [facility] [id number] [place] [address] May, Mild episode of recurrent major depressive disorder F33.0 and Generalized anxiety disorder F41.1 [facility] [address], [place] [address] May, Thrush B37.0 [facility] [id number] [place] [address] Apr, Cough R05 [facility] [address] [address] Mar, Mild episode of recurrent major depressive disorder F33.0 [facility] [address] [address] Mar, Mild episode of recurrent major depressive disorder F33.0 and Generalized anxiety disorder F41.1 [facility] [address] [address] Mar, Seasonal allergies J30.2 [facility] [address] [address] Mar, Seasonal allergies J30.2 [facility] [id number] [place] [address] February, Generalized anxiety disorder F41.1 [facility] [id number] [place] [address] February, Cough R05 and Seasonal allergies J30.2 [facility] [address] [address] February, Generalized anxiety disorder F41.1 and Mild episode of recurrent major depressive disorder F33.0 [facility] [id number] [place] [address] February, 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 ; Anxiety F41.9 ; Panic attacks F41.0 and Irritable bowel syndrome with diarrhea K58.0 [facility] [id number] [place] [address] February, [facility] [address] [address] Jan, Mixed hyperlipidemia E78.2 [facility] [id number] [place] [address] Jan, [facility] [address] [place] [address] Jan, [facility] [id number] [place] [address], [place] [address] Jan, [facility] [id number] [place] [address] Jan, [facility] [id number] [place] [address], [place] [address] Dec, [facility] [id number] [place] [address], [place] [address] Dec, [facility] [id number] [place] [address], [place] [address] Dec, [facility] [id number] [place] [address], [place] [address] Nov, Dysthymic disorder F34.1 [facility] [id number] [place] [address], [place] [address] Oct, [facility] [id number] [place] [address], [place] [address] Oct, [facility] [address] [place] [address] Oct, [facility] [id number] [place] [address] Oct, Diarrhea, unspecified type R19.7 and Dysuria R30.0 [facility] [address], [place] [address] Oct, [facility] [id number] [place] [address], [place] [address] Sep, [facility] [address], [place] [address] Sep, [facility] [id number] [place] [address] Sep, Anxiety F41.9 [facility] [id number] [place] [address] Sep, Cerebrovascular accident (CVA), unspecified mechanism I63.9 ; Mixed hyperlipidemia E78.2 ; Gastroesophageal reflux disease with esophagitis K21.0 and Anxiety F41.[address] [address] Sep, [address] [address] Aug, Chronic obstructive pulmonary disease, unspecified J44.9 ; Asthma J45.909 ; Nausea R11.0 ; Dysthymic disorder F34.1 ; Cerebrovascular accident (CVA), unspecified mechanism I63.9 and Rheumatoid arthritis M06.[address] [address] Aug, Nausea R11.0 ; Encounter for immunization Z23 ; Sleep apnea in adult G47.30 ; Rheumatoid arthritis involving multiple sites, unspecified rheumatoid factor presence M06.9 ; Generalized anxiety disorder F41.1 ; Dysthymic disorder F34.1 and Asthma J45.909 [address] [id number] [place] [address] Jul, [address] [address] May, ADHD (attention deficit hyperactivity disorder), combined type F90.2 ; Generalized anxiety disorder F41.1 and Persistent depressive disorder F34.1 [address] [id number] [place] [address] May, Cerebrovascular accident (CVA), unspecified mechanism I63.9 [facility] [id number] [place] [address] Apr, Mixed hyperlipidemia E78.2 and Cerebrovascular accident (CVA), unspecified mechanism I63.[address] [address] Apr, Generalized anxiety disorder F41.1 [facility] [id number] [place] [address] Apr, Bronchitis J40 and Tobacco use Z72.0 [facility] [id number] [place] [address] Apr, Mixed hyperlipidemia E78.2 [address] [facility] [address] [address] Apr, 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 [address] [address] [address] Apr, [facility] [id number] [place] [address] Apr, Generalized anxiety disorder F41.1 [facility] [id number] [place] [address] Apr, Obstructive sleep apnea G47.33 and Hyperinsulinemia E16.1 [facility] [id number] [place] [address] Apr, ADHD (attention deficit hyperactivity disorder), combined type F90.2 ; Generalized anxiety disorder F41.1 and Persistent depressive disorder F34.1 [facility] [id number] [place] [address] Mar, [facility] [id number] [place] [address] Mar, Generalized anxiety disorder F41.1 [facility] [id number] [place] [address] Mar, Tarsal tunnel syndrome of both lower extremities G57.53 [facility] [id number] [place] [address] February, [facility] [id number] [place] [address] February, [facility] [id number] [place] [address] February, Asthma J45.909 [facility] [id number] [place] [address] February, Generalized anxiety disorder F41.1 [facility] [id number] [place] [address] February, Hypoxemia R09.02 ; Hyperglycemia R73.9 ; Rheumatoid arthritis M06.9 and Generalized anxiety disorder F41.1 [facility] [id number] [place] [address] February, [facility] [address] [address] Jan, Chronic obstructive pulmonary disease, unspecified J44.9 [address] [address] Jan, Chronic pain syndrome G89.4 [facility] [id number] [place] [address] Jan, Hypoxemia R09.02 [facility] [id number] [place] [address] Jan, [facility] [id number] [place] [address] Jan, Chronic obstructive pulmonary disease, unspecified J44.9 ; Hypoxemia R09.02 ; Other insomnia G47.09 and Left anterior shoulder pain M25.512 [facility] [id number] [place] [address] Jan, Numbness in feet R20.0 and Neuropathy G62.9 [facility] [id number] [place] [address] Jan, [facility] [id number] [place] [address] Dec, Acute pain of left shoulder M25.512 [facility] [address], [place] [address] Dec, Acute pain of left shoulder M25.512 [facility] [id number] [place] [address] Dec, Generalized anxiety disorder F41.1 [facility] [id number] [place] [address] Dec, Generalized anxiety disorder F41.1 [facility] [id number] [place] [address] Nov, ADHD (attention deficit hyperactivity disorder), combined type F90.2 ; Generalized anxiety disorder F41.1 and Persistent depressive disorder F34.1 [facility] [id number] [place] [address] Nov, Acute pain of left shoulder M25.512 [facility] [id number] [place] [address] Nov, ADHD (attention deficit hyperactivity disorder), combined type F90.2 ; Generalized anxiety disorder F41.1 and Persistent depressive disorder F34.1 [facility] [id number] [place] [address] Nov, Chronic pain syndrome G89.4 [facility] [id number] [place] [address] Nov, Chronic pain syndrome G89.4 [facility] [id number] [place] [address] 08 Nov, 2016 Acute pain of left shoulder M25.512 [facility] [id number] [place] [address] Nov, Generalized anxiety disorder F41.1 [facility] [id number] [place] [address] Nov, Acute pain of left shoulder M25.512 [facility] [id number] [place] [address] Nov, ADHD (attention deficit hyperactivity disorder), combined type F90.2 ; Generalized anxiety disorder F41.1 and Persistent depressive disorder F34.1 [id number] [place] [address] Nov, Acute pain of left shoulder M25.512 ; Generalized anxiety disorder F41.1 ; Chronic pain syndrome G89.4 ; Hyperinsulinemia E16.1 ; Pain of left foot M79.672 and Pain in right foot M79.671 [facility] [id number] [place] [address] Oct, ADHD (attention deficit hyperactivity disorder), combined type F90.2 ; Generalized anxiety disorder F41.1 and Dysthymic disorder F34.1 [facility] [id number] [place] [address] Sep, [facility] [id number] [place] [address] Sep, [id number] [place] [address] Sep, Routine gynecological examination V72.31 ; Cervical cancer screening Z12.4 ; Breast cancer screening Z12.39 ; Colon cancer screening Z12.11 ; Hypokalemia E87.6 ; Herpes simplex type 1 infection B00.9 and Abscess of right axilla L02.411 [facility] [id number] [place] [address] Sep, [facility] [id number] [place] [address] Sep, ADHD (attention deficit hyperactivity disorder), combined type F90.2 ; Generalized anxiety disorder F41.1 and Dysthymic disorder F34.1 [facility] [id number] [place] [address] Aug, [address] [address] [place] [address] Aug, [facility] [id number] [place] [address] Aug, Generalized anxiety disorder F41.1 [facility] [id number] [place] [address] Aug, ADHD (attention deficit hyperactivity disorder), combined type F90.2 ; Generalized anxiety disorder F41.1 and Dysthymic disorder F34.1 [facility] [id number] [place] [address] Jul, Chronic pain syndrome G89.4 ; Hypertension I10 ; Hypokalemia E87.6 ; Asthma J45.909 and Nausea R11.0 [facility] [id number] [place] [address] Jul, [place] [address] [address] Jul, Asthma J45.909 [facility] [id number] [place] [address] Jul, ADHD (attention deficit hyperactivity disorder), combined type F90.2 ; Generalized anxiety disorder F41.1 and Dysthymic disorder F34.1 [facility] [id number] [place] [address] Jul, [facility] [id number] [place] [address] Jul, Hypertension I10 ; Arteriosclerotic coronary artery disease I25.10 ; Mixed hyperlipidemia E78.2 ; 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 and Hyperglycemia R73.9 [facility] [id number] [place] [address] 16 Jun, 2016 Hypokalemia E87.6 and Hyperglycemia R73.9 [facility] [id number] [place] [address] 14 Jun, 2016 [facility] [id number] [place] [address] 13 Jun, 2016 Abnormal kidney function N28.9 [place] [address] [address] Jun, [place] [address] [address] Jun, ADHD (attention deficit hyperactivity disorder), combined type F90.2 ; Generalized anxiety disorder F41.1 and Dysthymic disorder F34.1 [place] [address] [address] Jun, Generalized anxiety disorder F41.1 and Dysthymic disorder F34.1 [place] [address] [address] Jun, Hypokalemia E87.6 [place] [address] [address] May, Hypokalemia E87.6 ; Vertigo R42 and Hyperinsulinemia E16.[address] [address] May, [place] [address] [address] May, Abnormal kidney function N28.9 ; Hyperinsulinemia E16.1 and Nausea R11.0 [place] [address] [address] May, Hypokalemia E87.6 ; Nausea R11.0 ; Epigastric pain R10.13 ; Dehydration E86.0 ; Diaphoresis R61 and Right arm pain M79.601 [place] [address] [address] May, [place] [address] [address] May, Hypokalemia E87.6 [facility] [address], [place] [address] May, Hypokalemia E87.6 [facility] [address], [place] [address] Apr, [facility] [address], [place] [address] Apr, ADHD (attention deficit hyperactivity disorder), combined type F90.2 ; Generalized anxiety disorder F41.1 and Dysthymic disorder F34.1 [place] [address], [place] [address] Apr, Right arm pain M79.601 and Hyperinsulinemia E16.1 [place] [facility] [address], [place] [address] Mar, [facility] [id number] [place] [address] Mar, [facility] [address], [place] [address] Mar, Hyperinsulinemia E16.1 ; Hyperlipidemia, unspecified hyperlipidemia type E78.5 ; Central venous catheter in place Z78.9 ; Generalized anxiety disorder F41.1 and Urinary tract infection, site not specified N39.0 [facility] [address], [place] [address] Mar, ADHD (attention deficit hyperactivity disorder), combined type F90.2 ; Generalized anxiety disorder F41.1 and Dysthymic disorder F34.1 [facility] [address], [place] [address] February, ADHD (attention deficit hyperactivity disorder), combined type F90.2 ; Generalized anxiety disorder F41.1 and Dysthymic disorder F34.1 [facility] [address], [place] [address] February, [facility] [id number] [place] [address] February, [place] [address], [place] [address] February, Hypertension I10 and Weight gain R63.5 [place] [id number] [place] [address] February, Major depressive disorder, recurrent, moderate F33.1 and Generalized anxiety disorder F41.1 [place] [id number] [place] [address] February, ADHD (attention deficit hyperactivity disorder), combined type F90.2 ; Generalized anxiety disorder F41.1 and Dysthymic disorder F34.1 [place] [id number] [place] [address] February, [place] [address] [place] [address] February, Asthma J45.909 ; Weight gain R63.5 ; Hypertension I10 ; Rheumatoid arthritis M06.9 and Chronic pain syndrome G89.4 [place] [id number] [place] [address] Jan, ADHD (attention deficit hyperactivity disorder), combined type F90.2 ; Generalized anxiety disorder F41.1 and Dysthymic disorder F34.1 [place] [address], [place] [address] Dec, ADHD (attention deficit hyperactivity disorder), combined type F90.2 ; Generalized anxiety disorder F41.1 and Dysthymic disorder F34.1 [place] [address], [place] [address] Dec, [place] [id number] [place] [address] Nov, [place] [address], [place] [address] Nov, [place] [address], [place] [address] 15 Nov, 2015 [facility] [address], [place] [address] Nov, [facility] [address], [place] [address] Oct, [facility] [address], [place] [address] Oct, [facility] [address], [place] [address] Oct, [facility] [address], [place] [address] Sep, [facility] [address], [place] [address] Sep, [facility] [id number] [place] [address] Sep, Agoraphobia with panic disorder F40.01 ; Attention-deficit hyperactivity disorder, combined type F90.2 and Dysthymic disorder F34.1 [facility] [id number] [place] [address] Aug, [facility] [id number] [place] [address] Aug, [facility] [id number] [place] [address] Aug, [facility] [id number] [address] Aug, Dysthymic disorder F34.1 ; Generalized anxiety disorder F41.1 and ADHD (attention deficit hyperactivity disorder), combined type F90.2 [facility] [id number] [address] Aug, ADHD (attention deficit hyperactivity disorder), combined type F90.2 ; Generalized anxiety disorder F41.1 and Dysthymic disorder F34.1 [facility] [address], [place] [address] Jul, Urinary tract infection, site not specified N39.0 ; Hypotension, unspecified I95.9 and Breast cancer screening Z12.39 [facility] [id number] [place] [address] Jul, [facility] [id number] [place] [address] Jul, [facility] [id number] [place] [address] Jul, Urinary tract infection, site not specified N39.0 ; Nausea R11.0 ; Gastroenteritis K52.9 ; Renal failure N19 and Other hypotension I95.89 [facility] [id number] [place] [address] Jul, [facility] [id number] [place] [address] Jul, [facility] [id number] [place] [address] Jul, [facility] [id number] [place] [address] Jun, [facility] [id number] [place] [address] Jun, Major depression in partial remission 296.25 ; Generalized anxiety disorder 300.02 and ADHD, predominantly inattentive type 314.01 [facility] [id number] [place] [address] May, [facility] [id number] [place] [address] Apr, Major depressive disorder, recurrent episode, severe, without mention of psychotic behavior 296.33 ; Agoraphobia with panic disorder 300.21 and Generalized anxiety disorder 300.02 [facility] [id number] [place] [address] Apr, ADHD (attention deficit hyperactivity disorder), combined type 314.01 ; Generalized anxiety disorder 300.02 and Dysthymic disorder 300.4 [facility] [id number] [place] [address] Apr, CAD (coronary artery disease) 414.00 ; HTN (hypertension) 401.9 and Tobacco use 305.1 [place] [address] [address] Apr, [facility] [id number] [place] [address] Mar, ADHD (attention deficit hyperactivity disorder), combined type 314.01 ; Generalized anxiety disorder 300.02 ; Dysthymic disorder 300.4 ; No condition on [place] V71.09 ; Rheumatoid arthritis 714.0 ; Incontinence 788.30 ; Irritable bowel syndrome 564.1 ; Osteoporosis 733.00 and Chronic pain 338.29 [facility] [id number] [place] [address] Mar, Agoraphobia with panic disorder 300.21 and Major depressive disorder, recurrent episode, moderate 296.32 [facility] [id number] [place] [address] Mar, [facility] [id number] [place] [address] February, [facility] [id number] [place] [address] February, Agoraphobia with panic disorder 300.21 and Major depressive disorder, recurrent episode, moderate 296.32 [facility] [id number] [place] [address] February, [facility] [id number] [place] [address] Jan, [facility] [id number] [place] [address] Jan, [facility] [place] [facility] [address] [id number] [place] [address] Dec, [facility] [place] [facility] [address] [id number] [place] [address] Dec, [facility] [place] [facility] [address] [id number] [place] [address] Dec, [facility] [place] [facility] [address] [id number] [place] [address] Dec, [facility] [place] [facility] [address] [id number] [place] [address] Dec, [facility] [place] [facility] [address] [id number] [place] [address] Dec, [facility] [place] [facility] [address] [id number] [place] [address] Nov, [facility] [place] [facility] [address] [id number] [place] [address] Nov, 2014 [facility] [place] [facility] [address] [id number] [place] [address] Nov, [facility] [place] [facility] [address] [facility] [id number] [place] [address] Nov, [facility] [place] [facility] [address] [facility] [id number] [place] [address] Nov, [facility] [place] [facility] [address] [id number] [place] [address] Nov, 2014 [facility] [place] [facility] [address] [id number] [place] [address] Nov, [facility] [place] [facility] [address] [id number] [place] [address] Nov, 2014 [facility] [place] [facility] [address] [id number] [place] [address] Oct, [facility] [place] [facility] [address] [id number] [place] [address] Oct, [facility] [place] [facility] [address] [id number] [place] [address] Oct, [facility] [place] [facility] [address] [id number] [place] [address] Oct, [facility] [place] [facility] [address] [id number] [place] [address] Oct, [facility] [place] [facility] [address] [id number] [place] [address] Oct, [facility] [place] [facility] [address] [id number] [place] [address] Sep, [facility] [place] [facility] [address] [id number] [place] [address] Sep, [facility] [place] [facility] [address] [id number] [place] [address] Sep, [facility] [place] [facility] [address] [id number] [place] [address] Sep, [facility] [place] [facility] [address] [id number] [place] [address] Sep, [facility] [place] [facility] [address] [facility] [id number] [place] [address] Sep, [facility] [place] [facility] [address] [id number] [place] [address] Sep, [facility] [place] [facility] [address] [id number] [place] [address] Aug, [facility] [place] [facility] [address] [id number] [place] [address] Aug, [facility] [place] [facility] [address] [id number] [place] [address] Aug, [facility] [place] [facility] [address] [id number] [place] [address] Aug, [facility] [place] [facility] [address] [id number] [place] [address] Aug, [facility] [place] [facility] [address] [id number] [place] [address] Aug, [facility] [place] [facility] [address] [id number] [place] [address] Jul, [facility] [place] [facility] [address] [id number] [place] [address] Jul, [facility] [place] [facility] [address] [id number] [place] [address] Jul, [facility] [place] [facility] [address] [id number] [place] [address] Jul, [facility] [place] [facility] [address] [id number] [place] [address] Jul, [facility] [place] [facility] [address] [id number] [place] [address] Jul, [facility] [place] [facility] [address] [id number] [place] [address] Jun, [facility] [place] [facility] [address] [id number] [place] [address] Jun, [facility] [place] [facility] [address] [id number] [place] [address] May, [facility] [place] [facility] [address] [id number] [place] [address] May, [facility] [place] [facility] [address] [id number] [place] [address] Apr, [facility] [place] [facility] [address] [id number] [place] [address] Apr, [facility] [place] [facility] [address] [id number] [place] [address] Apr, [facility] [place] [facility] [address] [id number] [place] [address] Apr, [facility] [place] [facility] [address] [id number] [place] [address] Mar, [facility] [place] [facility] [address] [id number] [place] [address] Mar, [facility] [place] [facility] [address] [id number] [place] [address] Mar, [facility] [place] [facility] [address] [id number] [place] [address] Mar, [facility] [place] [facility] [address] [id number] [place] [address] February, [facility] [place] [facility] [address] [id number] [place] [address] February, [facility] [place] [facility] [address] [id number] [place] [address] February, [facility] [place] [facility] [address] [id number] [place] [address] February, [facility] [place] [facility] [address] [id number] [place] [address] February, [facility] [place] [facility] [address] [id number] [place] [address] February, [facility] [place] [facility] [address] [id number] [place] [address] Jan, [facility] [place] [facility] [address] [id number] [place] [address] Jan, [facility] [place] [facility] [address] [id number] [place] [address] Dec, [facility] [place] [facility] [address] [id number] [place] [address] Dec, [facility] [place] [facility] [address] [id number] [place] [address] Nov, [facility] [place] [facility] [address] [id number] [place] [address] Nov, [facility] [address] [id number] [place] [address] Oct, [facility] [address] [id number] [place] [address] Oct, [facility] [address] [id number] [place] [address] Oct, [facility] [address] [id number] [place] [address] Oct, [facility] [address] [id number] [place] [address] Sep, [facility] [address] [id number] [place] [address] Sep, [facility] [address] [id number] [place] [address] Sep, [facility] [address] [id number] [place] [address] Sep, [facility] [address] [id number] [place] [address] Sep, [facility] [address] [facility] [id number] [place] [address] Sep, [facility] [address] [id number] [place] [address] Sep, [facility] [address] [id number] [place] [address] Sep, [facility] [address] [id number] [place] [address] Aug, [facility] [address] [id number] [place] [address] Aug, [facility] [address] [id number] [place] [address] Aug, [facility] [place] [facility] [address] [id number] [place] [address] Aug, [facility] [place] [facility] [address] [id number] [place] [address] Aug, [facility] [place] [facility] [address] [id number] [place] [address] Aug, [facility] [place] [facility] [address] [id number] [place] [address] Aug, [facility] [place] [facility] [address] [id number] [place] [address] Aug, [facility] [place] [facility] [address] [id number] [place] [address] Aug, [facility] [place] [facility] [address] [id number] [place] [address] Jul, [facility] [place] [facility] [address] [id number], [place] [address] Jun, [facility] [place] [facility] [address] [id number] [place] [address] May, [facility] [place] [facility] [address] [id number], [place] [address] May, [facility] [place] [facility] [address] [id number], [place] [address] May, [facility] [place] [facility] [address] [id number], [place] [address] Apr, [facility] [place] [facility] [address] [id number], [place] [address] Mar, [facility] [place] [facility] [address] [id number], [place] [address] February, [facility] [place] [facility] [address] [id number], [place] [address] Oct, [facility] [place] [facility] [address] [id number], [place] [address] 16 Oct, 2012 [facility] [place] [facility] [address] [id number] [place] [address] Oct, [facility] [place] [facility] [address] [facility] [id number], [place] [address] Oct, [facility] [place] [facility] [address] [facility] [id number] [place] [address] Oct, [facility] [place] [facility] [address] [facility] [id number] [place] [address] Oct, [facility] [place] [facility] [address] [facility] [id number] [place] [address], [place] [address] Sep, [facility] [place] [facility] [address] [facility] [id number] [place] [address] Sep, [facility] [place] [facility] [address] [address] Aug, [facility] [place] [facility] [address] [facility] [id number] [place] [address] Aug, [facility] [place] [facility] [id number] [place] [address] Jul, [facility] [place] [facility] [id number] [place] [address] Jul, [facility] [place] [facility] [address] [facility] [id number], [place] [address] Jul, [facility] [place] [facility] [address] [facility] [id number], [place] [address] Jul, [facility] [place] [facility] [address] [id number], [place] [address] Jul, [facility] [place] [facility] [address] [facility] [id number], [place] [address] Jul, [facility] [place] [facility] [address] [facility] [id number], [place] [address] Jul, [facility] [place] [facility] [address] [id number] [place] [address] Jul, [facility] [place] [facility] [address] [id number] [place] [address] 16 Jun, 2012 [facility] [place] [facility] [address] [id number] [place] [address] Jun, [facility] [place] [facility] [address] [id number] [place] [address] May, [facility] [place] [facility] [address] [id number] [place] [address] Apr, [facility] [place] [facility] [address] [id number] [place] [address] Mar, [facility] [place] [facility] [address] [id number] [place] [address] Mar, [facility] [place] [facility] [address] [id number] [place] [address] Mar, [facility] [place] [facility] [address] [id number] [place] [address] Mar, [facility] [place] [facility] [address] [id number] [place] [address] Jan, [facility] [place] [facility] [address] [id number] [place] [address] Nov, [facility] [place] [facility] [address] [id number] [place] [address] Nov, [facility] [place] [facility] [address] [id number] [place] [address] Nov, [facility] [place] [facility] [address] [id number] [place] [address] Oct, [facility] [place] [facility] [address] [id number] [place] [address] Sep, [facility] [place] [facility] [address] [id number], [place] [address] Sep, [facility] [id number], [place] [address] Aug, [facility] [address], [place] [address] Aug, [facility] [address], [place] [address] Aug, [facility] [address], [place] [address] Aug, [facility] [address], [place] [address] Jul, [facility] [id number] [place] [address] May, [facility] [id number] [place] [address] Jan, [facility] [id number] [place] [address] Nov, [facility] [address], [place] [address] Apr, [facility] [address], [place] [address] Dec, [facility] [id number], [place] [address] Nov, IMMUNIZATIONS No Known Immunizations SOCIAL HISTORY Never Assessed REASON FOR VISIT [facility] call PLAN OF CARE VITAL SIGNS MEDICATIONS Unknown Medications RESULTS No Results PROCEDURES No Known procedures INSTRUCTIONS MEDICATIONS ADMINISTERED No Known Medications MEDICAL (GENERAL) HISTORY Type Description Date Medical History Cardiovascular ginlpega-IUA-Sfejytbx, non-obstructive per (01/2011) Dr. Mendoza Medical History Stress test 03/07/13-Dr. Kelly Dietrich normal Medical History Hypertension Medical History Asthma Medical History Gastrointestinal Disorder--IBS, GERD, Hx of fatty liver Medical History Hernia 1979 Medical History Cervical dysplasia 02/16-Pap LGSIL/[place]-mild dysplasia Medical History Hyperlipidemia Medical History Rheumatoid [...] Hospitalization History Symptomatic Hypokalemia/Nause-Via [facility]3] 05/13/16 Hospitalization History Stroke 05/03/2017 Hospitalization History stroke 08/24/2017--09/01/2017
--- OUTSIDE RECORDS SUMMARY | 2019-05-22 07:42 | XMS REPORT ---
Author Author LORI SNOWDEN [facility] Address [address] [place] [address] Care Team Providers Care Fashion Stylist Name Role Phone LORI SNOWDEN Unavailable PROBLEMS Type Condition ICD9-CM Code [id number] Code Onset Dates Condition Status SNOMED Code Problem Hemiparesis of left nondominant side as late effect of cerebral infarction I69.354 Active 916772753 Problem Morbid (severe) obesity due to excess calories E66.01 Active 586540983 Problem Generalized anxiety disorder F41.1 Active 96895626 Problem ADHD (attention deficit hyperactivity disorder), combined type F90.2 Active 36046017 Problem Chronic pain syndrome G89.4 Active 851619854 Problem Rheumatoid arthritis M06.9 Active 85021703 Problem Gastroesophageal reflux disease with esophagitis K21.0 Active 415883621 Problem Asthma J45.909 Active 901478505 Problem Anxiety F41.9 Active 38603768 Problem Hypertension I10 Active 47610097 Problem Irritable bowel syndrome with diarrhea K58.0 Active 848106235 Problem Mild episode of recurrent major depressive disorder F33.0 Active 380956334 Problem Panic attacks F41.0 Active 336576641 Problem Hemiplegia affecting left nondominant side G81.94 Active Problem Chronic obstructive pulmonary disease J44.9 Active 89829137 Problem Hyperinsulinemia E16.1 Active 63785583 Problem Mixed hyperlipidemia E78.2 Active 331169724 Problem Arteriosclerotic coronary artery disease I25.10 Active 05738078 Problem Primary insomnia F51.01 Active 8445663 Problem Seasonal allergies J30.2 Active 253073574 Problem Unsteady gait R26.81 Active 07840906 Problem Paroxysmal atrial fibrillation I48.0 Active 858616923 Problem Obstructive sleep apnea G47.33 Active 29476125 Problem Other director long term care (current) drug therapy Z79.899 Active 771740103 Problem Neuropathy G62.9 Active 257553678 Problem Other insomnia G47.09 Active 406758728 Problem Sleep apnea in adult G47.30 Active 82716316 Problem Rheumatoid arthritis involving multiple sites, unspecified rheumatoid factor presence M06.9 Active 430525188 Problem Cerebrovascular accident (CVA), unspecified mechanism I63.9 Active 512700767 Problem Dysthymic disorder F34.1 Active 32855569 ALLERGIES No Information ENCOUNTERS Encounter Location Date Diagnosis [facility] [address], [place] [address] Sep, [facility] [id number] [place] [address] Aug, [facility] [id number] [place] [address] Aug, [facility] [id number] [place] [address] Aug, [facility] [id number] [place] [address] Jul, [facility] [id number] [place] [address] Jul, [facility] [id number] [place] [address] Jul, [facility] [id number] [place] [address] Jul, [facility] [id number] [place] [address] Jul, [facility] [id number] [place] [address] Jul, [facility] [employer] [address] [id number] Jul, Hemiplegia affecting left nondominant side G81.94 ; Chronic obstructive pulmonary disease J44.9 and Weakness R53.1 [facility] [address], [place] [address] Jul, [address] [employer] [address] [id number] Jul, Weakness R53.1 ; Paroxysmal atrial fibrillation I48.0 and Unsteady gait R26.81 [place] [id number] [place] [address] Jul, Tobacco abuse Z72.0 [facility] [address] [place] [id number] Jun, History of acute respiratory failure Z87.09 ; Weight gain R63.5 and Tobacco abuse Z72.0 [place] [id number] [place] [address] Jun, [place] [id number] [place] [address] May, Primary insomnia F51.01 [place] [id number] [place] [address] May, Mild episode of recurrent major depressive disorder F33.0 [place] [id number] [place] [address] May, [place] [id number] [place] [address] May, Chronic obstructive pulmonary disease, unspecified COPD type J44.9 ; Primary insomnia F51.01 ; Fatigue, unspecified type R53.83 and Weight gain R63.5 [place] [id number] [place] [address] May, Thrush B37.0 [place] [id number] [place] [address] May, Mild episode of recurrent major depressive disorder F33.0 and Generalized anxiety disorder F41.1 [place] [id number] [place] [address] May, Thrush B37.0 [place] [address], [place] [address] Apr, Cough R05 [place] [id number] [place] [address] Mar, Mild episode of recurrent major depressive disorder F33.0 [facility] [address] [address] Mar, Mild episode of recurrent major depressive disorder F33.0 and Generalized anxiety disorder F41.1 [place] [address] [address] Mar, Seasonal allergies J30.2 [facility] [id number] [place] [address] Mar, Seasonal allergies J30.2 [place] [address] [address] February, Generalized anxiety disorder F41.1 [facility] [id number] [place] [address] February, Cough R05 and Seasonal allergies J30.2 [facility] [id number] [place] [address] February, Generalized anxiety disorder F41.1 and Mild episode of recurrent major depressive disorder F33.0 [place] [id number] [place] [address] February, Other assisted (current) drug therapy Z79.899 ; Anxiety F41.9 ; Panic attacks F41.0 and Irritable bowel syndrome with diarrhea K58.0 [facility] [id number] [place] [address] February, [place] [id number] [place] [address] Jan, Mixed hyperlipidemia E78.2 [facility] [id number] [place] [address] Jan, [place] [id number] [place] [address] Jan, [place] [address], [place] [address] Jan, [facility] [id number] [place] [address], [place] [address] Jan, [facility] [address], [place] [address] Dec, [facility] [id number] [place] [address], [place] [address] Dec, [facility] [id number] [place] [address] Dec, [facility] [id number] [place] [address], [place] [address] Nov, Dysthymic disorder F34.1 [facility] [id number] [place] [address] Oct, [facility] [id number] [place] [address] Oct, [facility] [id number] [place] [address] Oct, [facility] [id number] [place] [address] Oct, Diarrhea, unspecified type R19.7 and Dysuria R30.0 [facility] [id number] [place] [address] Oct, [facility] [address], [place] [address] Sep, [facility] [id number] [place] [address] Sep, [facility] [id number] [place] [address] Sep, Anxiety F41.9 [facility] [id number] [place] [address] Sep, Cerebrovascular accident (CVA), unspecified mechanism I63.9 ; Mixed hyperlipidemia E78.2 ; Gastroesophageal reflux disease with esophagitis K21.0 and Anxiety F41.9 [place] [id number] [place] [address] Sep, [place] [id number] [place] [address] Aug, Chronic obstructive pulmonary disease, unspecified J44.9 ; Asthma J45.909 ; Nausea R11.0 ; Dysthymic disorder F34.1 ; Cerebrovascular accident (CVA), unspecified mechanism I63.9 and Rheumatoid arthritis M06.9 [place] [id number] [place] [address] Aug, Nausea R11.0 ; Encounter for immunization Z23 ; Sleep apnea in adult G47.30 ; Rheumatoid arthritis involving multiple sites, unspecified rheumatoid factor presence M06.9 ; Generalized anxiety disorder F41.1 ; Dysthymic disorder F34.1 and Asthma J45.909 [place] [id number] [place] [address] Jul, [place] [id number] [place] [address] May, ADHD (attention deficit hyperactivity disorder), combined type F90.2 ; Generalized anxiety disorder F41.1 and Persistent depressive disorder F34.1 [place] [id number] [place] [address] May, Cerebrovascular accident (CVA), unspecified mechanism I63.9 [place] [id number] [place] [address] Apr, Mixed hyperlipidemia E78.2 and Cerebrovascular accident (CVA), unspecified mechanism I63.9 [place] [id number] [place] [address] Apr, Generalized anxiety disorder F41.1 [place] [address] [place] [address] Apr, Bronchitis J40 and Tobacco use Z72.0 [place] [address] [address] Apr, Mixed hyperlipidemia E78.2 [place] [address] [address] Apr, Other director long term care (current) drug therapy Z79.899 [place] [address] [address] Apr, [place] [address] [address] Apr, Generalized anxiety disorder F41.1 [place] [address] [address] Apr, Obstructive sleep apnea G47.33 and Hyperinsulinemia E16.[address] [address] Apr, ADHD (attention deficit hyperactivity disorder), combined type F90.2 ; Generalized anxiety disorder F41.1 and Persistent depressive disorder F34.1 [place] [id number] [place] [address] Mar, [place] [address] [address] Mar, Generalized anxiety disorder F41.1 [place] [address] [address] Mar, Tarsal tunnel syndrome of both lower extremities G57.53 [place] [address] [address] February, [place] [address] [address] February, [place] [address] [address] February, Asthma J45.909 [facility] [id number] [place] [address] February, Generalized anxiety disorder F41.1 [place] [id number] [place] [address] February, Hypoxemia R09.02 ; Hyperglycemia R73.9 ; Rheumatoid arthritis M06.9 and Generalized anxiety disorder F41.1 [place] [address] [address] February, [place] [address] [address] Jan, Chronic obstructive pulmonary disease, unspecified J44.9 [place] [address] [address] Jan, Chronic pain syndrome G89.4 [place] [address] [address] Jan, Hypoxemia R09.02 [place] [address] [address] Jan, [place] [address] [address] Jan, Chronic obstructive pulmonary disease, unspecified J44.9 ; Hypoxemia R09.02 ; Other insomnia G47.09 and Left anterior shoulder pain M25.512 [place] [id number] [place] [address] Jan, Numbness in feet R20.0 and Neuropathy G62.9 [place] [address] [address] Jan, [place] [address] [address] Dec, Acute pain of left shoulder M25.512 [place] [address] [address] Dec, Acute pain of left shoulder M25.512 [facility] [address], [place] [address] Dec, Generalized anxiety disorder F41.1 [facility] [address], [place] [address] Dec, Generalized anxiety disorder F41.1 [facility] [id number] [place] [address] Nov, ADHD (attention deficit hyperactivity disorder), combined type F90.2 ; Generalized anxiety disorder F41.1 and Persistent depressive disorder F34.1 [facility] [id number] [place] [address] Nov, Acute pain of left shoulder M25.512 [facility] [id number] [place] [address] Nov, ADHD (attention deficit hyperactivity disorder), combined type F90.2 ; Generalized anxiety disorder F41.1 and Persistent depressive disorder F34.1 [facility] [id number] [place] [address] Nov, Chronic pain syndrome G89.4 [facility] [id number] [place] [address] Nov, Chronic pain syndrome G89.4 [facility] [id number] [place] [address] 08 Nov, 2016 Acute pain of left shoulder M25.512 [facility] [address], [place] [address] Nov, Generalized anxiety disorder F41.1 [facility] [id number] [place] [address] Nov, Acute pain of left shoulder M25.512 [facility] [id number] [place] [address] Nov, ADHD (attention deficit hyperactivity disorder), combined type F90.2 ; Generalized anxiety disorder F41.1 and Persistent depressive disorder F34.1 [place] [id number] [place] [address] Nov, Acute pain of left shoulder M25.512 ; Generalized anxiety disorder F41.1 ; Chronic pain syndrome G89.4 ; Hyperinsulinemia E16.1 ; Pain of left foot M79.672 and Pain in right foot M79.671 [place] [address] [address] Oct, ADHD (attention deficit hyperactivity disorder), combined type F90.2 ; Generalized anxiety disorder F41.1 and Dysthymic disorder F34.1 [place] [address] [address] Sep, [address] [address] Sep, [address] [address] Sep, Routine gynecological examination V72.31 ; Cervical cancer screening Z12.4 ; Breast cancer screening Z12.39 ; Colon cancer screening Z12.11 ; Hypokalemia E87.6 ; Herpes simplex type 1 infection B00.9 and Abscess of right axilla L02.411 [place] [id number] [place] [address] Sep, [address] [address] Sep, ADHD (attention deficit hyperactivity disorder), combined type F90.2 ; Generalized anxiety disorder F41.1 and Dysthymic disorder F34.1 [place] [address] [address] Aug, [place] [address] [address] Aug, [address] [place] [address] Aug, Generalized anxiety disorder F41.1 [place] [address] [address] Aug, ADHD (attention deficit hyperactivity disorder), combined type F90.2 ; Generalized anxiety disorder F41.1 and Dysthymic disorder F34.1 [place] [address] [address] Jul, Chronic pain syndrome G89.4 ; Hypertension I10 ; Hypokalemia E87.6 ; Asthma J45.909 and Nausea R11.0 [place] [address] [address] Jul, [place] [address] [address] Jul, Asthma J45.909 [place] [address] [address] Jul, ADHD (attention deficit hyperactivity disorder), combined type F90.2 ; Generalized anxiety disorder F41.1 and Dysthymic disorder F34.1 [place] [address] [address] Jul, [place] [address] [address] Jul, Hypertension I10 ; Arteriosclerotic coronary artery disease I25.10 ; Mixed hyperlipidemia E78.2 ; Other director long term care (current) drug therapy Z79.899 and Hyperglycemia R73.9 [place] [address] [address] 16 Jun, 2016 Hypokalemia E87.6 and Hyperglycemia R73.9 [place] [address] [address] 14 Jun, 2016 [place] [address] [address] Jun, Abnormal kidney function N28.9 [place] [address] [address] Jun, [place] [address] [address] Jun, ADHD (attention deficit hyperactivity disorder), combined type F90.2 ; Generalized anxiety disorder F41.1 and Dysthymic disorder F34.1 [place] [address] [address] Jun, Generalized anxiety disorder F41.1 and Dysthymic disorder F34.1 [place] [address] [address] Jun, Hypokalemia E87.6 [place] [address] [address] May, Hypokalemia E87.6 ; Vertigo R42 and Hyperinsulinemia E16.1 [place] [address] [address] May, [place] [address] [address] May, Abnormal kidney function N28.9 ; Hyperinsulinemia E16.1 and Nausea R11.[address] [address] May, Hypokalemia E87.6 ; Nausea R11.0 ; Epigastric pain R10.13 ; Dehydration E86.0 ; Diaphoresis R61 and Right arm pain M79.601 [place] [address] [address] May, [place] [address] [place] [address] May, Hypokalemia E87.6 [place] [address] [address] May, Hypokalemia E87.6 [facility] [id number] [place] [address] Apr, [facility] [id number] [place] [address] Apr, ADHD (attention deficit hyperactivity disorder), combined type F90.2 ; Generalized anxiety disorder F41.1 and Dysthymic disorder F34.1 [place] [id number] [place] [address] Apr, Right arm pain M79.601 and Hyperinsulinemia E16.1 [place] [address] [address] Mar, [place] [id number] [place] [address] Mar, [place] [id number] [place] [address] Mar, Hyperinsulinemia E16.1 ; Hyperlipidemia, unspecified hyperlipidemia type E78.5 ; Central venous catheter in place Z78.9 ; Generalized anxiety disorder F41.1 and Urinary tract infection, site not specified N39.0 [place] [id number] [place] [address] Mar, ADHD (attention deficit hyperactivity disorder), combined type F90.2 ; Generalized anxiety disorder F41.1 and Dysthymic disorder F34.1 [place] [id number] [place] [address] February, ADHD (attention deficit hyperactivity disorder), combined type F90.2 ; Generalized anxiety disorder F41.1 and Dysthymic disorder F34.1 [place] [id number] [place] [address] February, [place] [id number] [place] [address] February, [place] [id number] [place] [address] February, Hypertension I10 and Weight gain R63.5 [place] [id number] [place] [address] February, Major depressive disorder, recurrent, moderate F33.1 and Generalized anxiety disorder F41.1 [place] [id number] [place] [address] February, ADHD (attention deficit hyperactivity disorder), combined type F90.2 ; Generalized anxiety disorder F41.1 and Dysthymic disorder F34.1 [place] [address] [place] [address] February, [place] [id number] [place] [address] February, Asthma J45.909 ; Weight gain R63.5 ; Hypertension I10 ; Rheumatoid arthritis M06.9 and Chronic pain syndrome G89.4 [place] [id number] [place] [address] Jan, ADHD (attention deficit hyperactivity disorder), combined type F90.2 ; Generalized anxiety disorder F41.1 and Dysthymic disorder F34.1 [place] [id number] [place] [address] Dec, ADHD (attention deficit hyperactivity disorder), combined type F90.2 ; Generalized anxiety disorder F41.1 and Dysthymic disorder F34.1 [place] [id number] [place] [address] Dec, [place] [address] [place] [address] Nov, [place] [id number] [place] [address] Nov, [place] [address], [place] [address] Nov, [place] [id number] [address] Nov, [facility] [address], [place] [address] Oct, [facility] [address], [place] [address] Oct, [facility] [id number] [place] [address] Oct, [facility] [id number] [place] [address] Sep, [facility] [id number] [place] [address] Sep, [facility] [address] [address] Sep, Agoraphobia with panic disorder F40.01 ; Attention-deficit hyperactivity disorder, combined type F90.2 and Dysthymic disorder F34.1 [facility] [address], [place] [address] Aug, [facility] [address], [place] [address] Aug, [facility] [address], [place] [address] Aug, [facility] [address], [place] [address] Aug, Dysthymic disorder F34.1 ; Generalized anxiety disorder F41.1 and ADHD (attention deficit hyperactivity disorder), combined type F90.2 [facility] [address], [place] [address] Aug, ADHD (attention deficit hyperactivity disorder), combined type F90.2 ; Generalized anxiety disorder F41.1 and Dysthymic disorder F34.1 [facility] [address], [place] [address] Jul, Urinary tract infection, site not specified N39.0 ; Hypotension, unspecified I95.9 and Breast cancer screening Z12.39 [facility] [id number] [place] [id number] Jul, [facility] [id number] [place] [id number] Jul, [facility] [id number] [place] [id number] Jul, Urinary tract infection, site not specified N39.0 ; Nausea R11.0 ; Gastroenteritis K52.9 ; Renal failure N19 and Other hypotension I95.89 [facility] [id number] [place] [id number] Jul, [facility] [facility] [id number] [place] [address] Jul, [facility] [id number] [place] [address] Jul, [facility] [id number] [place] [address] Jun, [facility] [id number] [place] [address] Jun, Major depression in partial remission 296.25 ; Generalized anxiety disorder 300.02 and ADHD, predominantly inattentive type 314.01 [facility] [id number] [place] [address] May, [facility] [id number] [place] [address] Apr, Major depressive disorder, recurrent episode, severe, without mention of psychotic behavior 296.33 ; Agoraphobia with panic disorder 300.21 and Generalized anxiety disorder 300.02 [facility] [id number] [place] [address] Apr, ADHD (attention deficit hyperactivity disorder), combined type 314.01 ; Generalized anxiety disorder 300.02 and Dysthymic disorder 300.4 [facility] [id number] [place] [address] Apr, CAD (coronary artery disease) 414.00 ; HTN (hypertension) 401.9 and Tobacco use 305.1 [facility] [id number] [place] [address] Apr, [facility] [address] [address] Mar, ADHD (attention deficit hyperactivity disorder), combined type 314.01 ; Generalized anxiety disorder 300.02 ; Dysthymic disorder 300.4 ; No condition on [place] II V71.09 ; Rheumatoid arthritis 714.0 ; Incontinence 788.30 ; Irritable bowel syndrome 564.1 ; Osteoporosis 733.00 and Chronic pain 338.29 [address] [facility] [id number] [place] [address] Mar, Agoraphobia with panic disorder 300.21 and Major depressive disorder, recurrent episode, moderate 296.32 [facility] [id number] [place] [address] Mar, [facility] [id number] [place] [address] February, [facility] [id number] [place] [address] February, Agoraphobia with panic disorder 300.21 and Major depressive disorder, recurrent episode, moderate 296.32 [facility] [id number] [place] [address] February, [facility] [id number] [place] [address] Jan, [facility] [id number] [place] [address] Jan, [facility] [id number] [place] [address] Dec, [facility] [place] [facility] [address] [id number] [place] [address] Dec, [facility] [place] [facility] [address] [id number] [place] [address] Dec, [facility] [place] [facility] [address] [id number] [place] [address] Dec, [facility] [place] [facility] [address] [id number] [place] [address] Dec, [facility] [place] [facility] [address] [id number] [place] [address] Dec, [facility] [place] [facility] [address] [id number] [place] [address] Nov, [facility] [place] [facility] [address] [id number] [place] [address] Nov, [facility] [place] [facility] [address] [id number] [place] [address] Nov, 2014 [facility] [place] [facility] [address] [id number] [place] [address] Nov, [facility] [place] [facility] [address] [id number] [place] [address] Nov, [facility] [place] [facility] [address] [id number] [place] [address] Nov, [facility] [place] [facility] [address] [id number] [place] [address] Nov, 2014 [facility] [place] [facility] [address] [id number] [place] [address] Nov, [facility] [place] [facility] [address] [id number] [place] [address] Oct, [facility] [place] [facility] [address] [id number] [place] [address] Oct, [facility] [place] [facility] [address] [id number] [place] [address] Oct, [facility] [place] [facility] [address] [id number] [place] [address] Oct, [facility] [place] [facility] [address] [id number] [place] [address] Oct, [facility] [place] [facility] [address] [id number] [place] [address] Oct, [facility] [place] [facility] [address] [id number] [place] [address] Sep, [facility] [place] [facility] [address] [id number] [place] [address] Sep, [facility] [place] [facility] [address] [id number] [place] [address] Sep, [facility] [place] [facility] [address] [id number] [place] [address] Sep, [facility] [place] [facility] [address] [id number] [place] [address] Sep, [facility] [place] [facility] [address] [id number] [place] [address] Sep, [facility] [place] [facility] [address] [id number] [place] [address] Sep, [facility] [place] [facility] [address] [id number] [place] [address] Aug, [facility] [place] [facility] [address] [id number] [place] [address] Aug, [facility] [place] [facility] [address] [id number] [place] [address] Aug, [facility] [place] [facility] [address] [id number] [place] [address] Aug, [facility] [place] [facility] [address] [id number] [place] [address] Aug, [facility] [place] [facility] [address] [id number] [place] [address] Aug, [facility] [place] [facility] [address] [id number] [place] [address] Jul, [facility] [place] [facility] [address] [id number] [place] [address] Jul, [facility] [place] [facility] [address] [id number] [place] [address] Jul, [facility] [place] [facility] [address] [id number] [place] [address] Jul, [facility] [place] [facility] [address] [id number] [place] [address] Jul, [facility] [place] [facility] [address] [id number] [place] [address] Jul, [facility] [place] [facility] [address] [id number] [place] [address] Jun, [facility] [place] [facility] [address] [id number] [place] [address] Jun, [facility] [place] [facility] [address] [id number] [place] [address] May, [facility] [place] [facility] [address] [id number] [place] [address] May, [facility] [place] [facility] [address] [id number] [place] [address] Apr, [facility] [place] [facility] [address] [id number] [place] [address] Apr, [facility] [place] [facility] [address] [id number] [place] [address] Apr, [facility] [place] [facility] [address] [id number] [place] [address] Apr, [facility] [place] [facility] [address] [id number] [place] [address] Mar, [facility] [place] [facility] [address] [id number] [place] [address] Mar, [facility] [place] [facility] [address] [id number] [place] [address] Mar, [facility] [place] [facility] [address] [id number] [place] [address] Mar, [facility] [place] [facility] [address] [id number] [place] [address] February, [facility] [place] [facility] [address] [id number] [place] [address] February, [facility] [place] [facility] [address] [id number] [place] [address] February, [facility] [place] [facility] [address] [id number] [place] [address] February, [facility] [place] [facility] [address] [id number] [place] [address] February, [facility] [place] [facility] [address] [id number] [place] [address] February, [facility] [place] [facility] [address] [id number] [place] [address] Jan, [facility] [place] [facility] [address] [id number] [place] [address] Jan, [facility] [place] [facility] [address] [id number], [place] [address] Dec, [facility] [place] [facility] [address] [id number] [place] [address] Dec, [facility] [place] [facility] [address] [id number] [place] [address] Nov, [facility] [place] [facility] [address] [id number] [place] [address] Nov, [facility] [place] [facility] [address] [id number] [place] [address] Oct, [facility] [address] [id number] [place] [address] Oct, [facility] [address] [id number] [place] [address] Oct, [facility] [address] [id number] [place] [address] Oct, [facility] [address] [id number] [place] [address] Sep, [facility] [address] [id number] [place] [address] Sep, [facility] [address] [id number] [place] [address] Sep, [facility] [address] [id number] [place] [address] Sep, [facility] [address] [id number] [place] [address] Sep, [facility] [address] [id number] [place] [address] Sep, [facility] [address] [facility] [place] [id number] [place] [address] Sep, [facility] [address] [id number] [place] [address] Sep, [facility] [address] [id number] [place] [address] Aug, [facility] [address] [id number] [place] [address] Aug, [facility] [address] [facility] [place] [id number] [place] [address] Aug, [facility] [address] [id number] [place] [address] Aug, [facility] [place] [facility] [address] [id number] [place] [address] Aug, [facility] [place] [facility] [address] [id number] [place] [address] Aug, [facility] [place] [facility] [address] [id number] [place] [address] Aug, [facility] [place] [facility] [address] [id number] [place] [address] Aug, [facility] [place] [facility] [address] [id number] [place] [address] Aug, [facility] [place] [facility] [address] [id number] [place] [address] Jul, [facility] [place] [facility] [address] [id number] [place] [address] Jun, [facility] [place] [facility] [address] [id number] [place] [address] May, [facility] [place] [facility] [address] [id number] [place] [address] May, [facility] [place] [facility] [address] [id number], [place] [address] May, [facility] [place] [facility] [address] [id number], [place] [address] Apr, [facility] [place] [facility] [address] [id number], [place] [address] Mar, [facility] [place] [facility] [address] [id number] [place] [address] February, [facility] [place] [facility] [address] [id number], [place] [address] Oct, [facility] [place] [facility] [address] [id number], [place] [address] Oct, [facility] [place] [facility] [address] [id number], [place] [address] Oct, [facility] [place] [facility] [address] [id number] [place] [address] 14 Oct, 2012 [facility] [place] [facility] [address] [id number] [place] [address] Oct, [facility] [place] [facility] [address] [facility] [id number] [place] [address] Oct, [facility] [place] [facility] [address] [id number] [place] [address] Sep, [facility] [place] [facility] [address] [id number] [place] [address] Sep, [facility] [place] [facility] [address] [facility] [id number] [place] [address] Aug, [facility] [place] [facility] [id number] [address] Aug, [facility] [place] [facility] [address] [facility] [id number] [place] [address] Jul, [facility] [place] [facility] [address] [facility] [facility] [id number] [place] [address] Jul, [facility] [place] [facility] [address] [facility] [place] [id number] [place] [address] Jul, [facility] [place] [facility] [address] [facility] [id number], [place] [address] Jul, [facility] [place] [facility] [address] [facility] [place] [id number], [place] [address] Jul, [facility] [place] [facility] [address] [id number] [place] [address] Jul, [facility] [place] [facility] [address] [facility] [id number] [place] [address] Jul, [facility] [place] [facility] [address] [facility] [facility] [id number] [place] [address] Jul, [facility] [place] [facility] [address] [id number] [place] [address] 16 Jun, 2012 [facility] [place] [facility] [address] [id number] [place] [address] Jun, [facility] [place] [facility] [address] [id number] [place] [address] May, [facility] [place] [facility] [address] [id number] [place] [address] Apr, [facility] [place] [facility] [address] [id number] [place] [address] Mar, [facility] [place] [facility] [address] [id number] [place] [address] Mar, [facility] [place] [facility] [address] [id number] [place] [address] Mar, [facility] [place] [facility] [address] [id number] [place] [address] Mar, [facility] [place] [facility] [address] [id number] [place] [address] Jan, [facility] [place] [facility] [address] [id number] [place] [address] Nov, [facility] [place] [facility] [address] [id number] [place] [address] Nov, [facility] [place] [facility] [address] [id number] [place] [address] Nov, [facility] [place] [facility] [address] [id number] [place] [address] Oct, [facility] [place] [facility] [address] [id number] [place] [address] Sep, [facility] [place] [facility] [address] [id number] [place] [address] Sep, [facility] [place] [facility] [address] [id number] [place] [address] Aug, [facility] [address] [id number], [place] [address] Aug, [facility] [address], [place] [address] Aug, [facility] [id number], [place] [address] Aug, [facility] [address], [place] [address] Jul, [facility] [address], [place] [address] May, [facility] [address], [place] [address] Jan, [facility] [id number], [place] [address] Nov, [facility] [address], [place] [address] Apr, [facility] [id number], [place] [address] Dec, [facility] [id number], [place] [address] Nov, IMMUNIZATIONS No Known Immunizations SOCIAL HISTORY Never Assessed REASON FOR VISIT CCM call/Med reconciliation PLAN OF CARE VITAL SIGNS MEDICATIONS Medication Instructions Dosage Frequency Start Date End Date Duration Status Venlafaxine HCl ER 150 MG Orally Once a day 2 capsules 24h Nov, Active Simvastatin 40 MG Orally Once a day 1 tablet 24h Active Nicoderm CQ 7 MG/24HR Transdermal Once a day 1 patch to skin 24h Jun, Sep, 30 days Not-Taking Haloperidol 0.5 MG Orally twice a day 1 tablet 12h Not-Taking Montelukast Sodium 10 mg Orally Once a day at bedtime 1 tablet May, 30 day(s) Not-Taking Gabapentin 600 MG Orally Three times a day 1 capsule 8h Nov, 30 Active Dicyclomine HCl 20 mg Orally once a day 1 tablet as needed 24h February, Active Metoprolol Tartrate 50 MG Orally Twice a day 1 tablet with food 12h Active Tramadol HCl 50 mg Orally every 4-6hrs 1-2 tablets as neede Active Ambien 5 mg Orally Once a day 1 tablet at bedtime as needed 24h 24 Jun, 2018 28 days Active Xeljanz 5 mg 1 Tablet by Oral route 2 times per day Dec, Active Triamcinolone Acetonide 55 MCG/ACT Nasally Once a day 1 spray in each nostril 24h 30 day(s) Active Acetaminophen 500 mg Orally every 8 hrs 2 capsules as needed 8h Not-Taking MiraLax - Orally Once a day 17gm 24h Not-Taking Furosemide 20 MG Orally Once a day 1 tablet 24h 30 day(s) Active Advair Diskus 100-50 MCG/DOSE Inhalation Twice a day 1 puff 12h Jul, 30 Active Albuterol Sulfate (2.5 MG/3ML) 0.083% Inhalation every 4 hours 3 ml as needed for cough or wheeze 4h Jul, Active Alprazolam 0.5 MG Orally Twice a day as needed 1 tablet Jun, 28 days Active Pantoprazole Sodium 40 mg Orally Once a day 1 tablet 24h 90 Active Klor-Con M20 20 MEQ Orally Once a day 1 tablet with food 24h 30 day(s) Active Levocetirizine Dihydrochloride 5 mg Orally Once a day 1 tablet in the evening 24h Mar, 30 day(s) Active Cyclobenzaprine HCl 10 MG Orally 2 times a day 1 tablet as needed 12h Jul, 30 Active Ventolin HFA 108 (90 Base) MCG/ACT Inhalation every 4 hrs 2 puffs as needed 4h Aug, Active Mucus Relief 400 mg Orally 3 times a day 1 tablet as needed 8h Not-Taking RESULTS No Results PROCEDURES No Known procedures INSTRUCTIONS MEDICATIONS ADMINISTERED No Known Medications MEDICAL (GENERAL) HISTORY Type Description Date Medical History Cardiovascular oujiynas-PSB-Xnyreklp, non-obstructive per (01/2011) Dr. Mendoza Medical History Stress test 03/07/13-Dr. Kelly Dietrich normal Medical History Hypertension Medical History Asthma Medical History Gastrointestinal Disorder--IBS, GERD, Hx of fatty liver Medical History Hernia 1979 Medical History Cervical dysplasia 02/16-Pap LGSIL/[place]-mild dysplasia Medical History Hyperlipidemia Medical History Rheumatoid arthritis ([place]) in remission 2/17/15 pain she has probably from OA Medical [...] History Symptomatic Hypokalemia/Nause-[facility]ia [facility] 05/13/16 Hospitalization History Stroke 05/03/2017 Hospitalization History stroke 08/24/2017--09/01/2017
--- OUTSIDE RECORDS SUMMARY | 2019-05-22 07:43 | XMS REPORT ---
Author Author LORI SNOWDEN [facility] Address [address] [place] [address] Care Team Providers Care Underwriting Service Representative Name Role Phone LORI SNOWDEN Unavailable PROBLEMS Type Condition ICD9-CM Code [id number] Code Onset Dates Condition Status SNOMED Code Problem Hemiparesis of left nondominant side as late effect of cerebral infarction I69.354 Active 673690970 Problem Morbid (severe) obesity due to excess calories E66.01 Active 567607178 Problem Generalized anxiety disorder F41.1 Active 92149800 Problem ADHD (attention deficit hyperactivity disorder), combined type F90.2 Active 96580758 Problem Chronic pain syndrome G89.4 Active 708627092 Problem Rheumatoid arthritis M06.9 Active 56693550 Problem Gastroesophageal reflux disease with esophagitis K21.0 Active 789311250 Problem Asthma J45.909 Active 642963143 Problem Anxiety F41.9 Active 75855834 Problem Hypertension I10 Active 60189799 Problem Irritable bowel syndrome with diarrhea K58.0 Active 387303379 Problem Mild episode of recurrent major depressive disorder F33.0 Active 777302849 Problem Panic attacks F41.0 Active 309178175 Problem Hemiplegia affecting left nondominant side G81.94 Active Problem Chronic obstructive pulmonary disease J44.9 Active 23029609 Problem Hyperinsulinemia E16.1 Active 81010870 Problem Mixed hyperlipidemia E78.2 Active 685718106 Problem Arteriosclerotic coronary artery disease I25.10 Active 26183802 Problem Primary insomnia F51.01 Active 1914104 Problem Seasonal allergies J30.2 Active 820153243 Problem Unsteady gait R26.81 Active 15405335 Problem Paroxysmal atrial fibrillation I48.0 Active 019778298 Problem Obstructive sleep apnea G47.33 Active 66253161 Problem Other terminal operator (current) drug therapy Z79.899 Active 447768932 Problem Neuropathy G62.9 Active 392930515 Problem Other insomnia G47.09 Active 801450281 Problem Sleep apnea in adult G47.30 Active 04143384 Problem Rheumatoid arthritis involving multiple sites, unspecified rheumatoid factor presence M06.9 Active 326608794 Problem Cerebrovascular accident (CVA), unspecified mechanism I63.9 Active 275116084 Problem Dysthymic disorder F34.1 Active 62848302 ALLERGIES No Information ENCOUNTERS Encounter Location Date Diagnosis [facility] [address] [address] Sep, [facility] [id number] [place] [address] Aug, [facility] [id number] [place] [address] Aug, [facility] [id number] [place] [address] Aug, [facility] [id number] [place] [address] Jul, [facility] [id number] [place] [address] Jul, [facility] [id number] [place] [address] Jul, [facility] [id number] [place] [address] Jul, [facility] [id number] [place] [address] Jul, [facility] [id number] [place] [address] Jul, [facility] [employer] [address] [id number] Jul, Hemiplegia affecting left nondominant side G81.94 ; Chronic obstructive pulmonary disease J44.9 and Weakness R53.1 [facility] [address] [address] Jul, [facility] [employer] [address] [id number] Jul, Weakness R53.1 ; Paroxysmal atrial fibrillation I48.0 and Unsteady gait R26.81 [place] [id number] [place] [address] Jul, Tobacco abuse Z72.0 [facility] [employer] [facility] [address] [place] [id number] Jun, History of acute respiratory failure Z87.09 ; Weight gain R63.5 and Tobacco abuse Z72.0 [place] [id number] [place] [address] Jun, [place] [id number] [place] [address] May, Primary insomnia F51.01 [facility] [id number] [place] [address] May, Mild episode of recurrent major depressive disorder F33.0 [place] [id number] [place] [address] May, [facility] [id number] [place] [address] May, Chronic obstructive pulmonary disease, unspecified COPD type J44.9 ; Primary insomnia F51.01 ; Fatigue, unspecified type R53.83 and Weight gain R63.5 [place] [id number] [place] [address] May, Thrush B37.0 [place] [id number] [place] [address] May, Mild episode of recurrent major depressive disorder F33.0 and Generalized anxiety disorder F41.1 [place] [id number] [place] [address] May, Thrush B37.0 [place] [address] [address] Apr, Cough R05 [place] [id number] [place] [address] Mar, Mild episode of recurrent major depressive disorder F33.0 [facility] [address] [address] Mar, Mild episode of recurrent major depressive disorder F33.0 and Generalized anxiety disorder F41.1 [place] [address] [address] Mar, Seasonal allergies J30.2 [facility] [id number] [place] [address] Mar, Seasonal allergies J30.2 [place] [address] [address] February, Generalized anxiety disorder F41.1 [facility] [id number] [place] [address] February, Cough R05 and Seasonal allergies J30.2 [facility] [id number] [place] [address] February, Generalized anxiety disorder F41.1 and Mild episode of recurrent major depressive disorder F33.0 [place] [id number] [place] [address] February, Other senior living (current) drug therapy Z79.899 ; Anxiety F41.9 ; Panic attacks F41.0 and Irritable bowel syndrome with diarrhea K58.0 [facility] [id number] [place] [address] February, [place] [id number] [place] [address] Jan, Mixed hyperlipidemia E78.2 [facility] [id number] [place] [address] Jan, [place] [id number] [place] [address] Jan, [place] [address] [address] Jan, [facility] [id number] [place] [address], [place] [address] Jan, [facility] [address] [address] Dec, [facility] [id number] [place] [address], [place] [address] Dec, [facility] [id number] [place] [address] Dec, [facility] [id number] [place] [address], [place] [address] Nov, Dysthymic disorder F34.1 [facility] [id number] [place] [address] Oct, [facility] [id number] [place] [address] Oct, [facility] [id number] [place] [address] Oct, [facility] [id number] [place] [address] Oct, Diarrhea, unspecified type R19.7 and Dysuria R30.0 [facility] [id number] [place] [address] Oct, [facility] [address] [address] Sep, [facility] [id number] [place] [address] Sep, [facility] [id number] [place] [address] Sep, Anxiety F41.9 [facility] [id number] [place] [address] Sep, Cerebrovascular accident (CVA), unspecified mechanism I63.9 ; Mixed hyperlipidemia E78.2 ; Gastroesophageal reflux disease with esophagitis K21.0 and Anxiety F41.9 [facility] [id number] [place] [address] Sep, [facility] [id number] [place] [address] Aug, Chronic obstructive pulmonary disease, unspecified J44.9 ; Asthma J45.909 ; Nausea R11.0 ; Dysthymic disorder F34.1 ; Cerebrovascular accident (CVA), unspecified mechanism I63.9 and Rheumatoid arthritis M06.9 [place] [id number] [place] [address] Aug, Nausea R11.0 ; Encounter for immunization Z23 ; Sleep apnea in adult G47.30 ; Rheumatoid arthritis involving multiple sites, unspecified rheumatoid factor presence M06.9 ; Generalized anxiety disorder F41.1 ; Dysthymic disorder F34.1 and Asthma J45.909 [place] [id number] [place] [address] Jul, [place] [id number] [place] [address] May, ADHD (attention deficit hyperactivity disorder), combined type F90.2 ; Generalized anxiety disorder F41.1 and Persistent depressive disorder F34.1 [place] [id number] [place] [address] May, Cerebrovascular accident (CVA), unspecified mechanism I63.9 [place] [id number] [place] [address] Apr, Mixed hyperlipidemia E78.2 and Cerebrovascular accident (CVA), unspecified mechanism I63.9 [place] [id number] [place] [address] Apr, Generalized anxiety disorder F41.1 [place] [address] [place] [address] Apr, Bronchitis J40 and Tobacco use Z72.0 [place] [address] [address] Apr, Mixed hyperlipidemia E78.2 [place] [address] [address] Apr, Other terminal operator (current) drug therapy Z79.899 [place] [address] [address] Apr, [place] [address] [address] Apr, Generalized anxiety disorder F41.1 [place] [address] [address] Apr, Obstructive sleep apnea G47.33 and Hyperinsulinemia E16.[address] [address] Apr, ADHD (attention deficit hyperactivity disorder), combined type F90.2 ; Generalized anxiety disorder F41.1 and Persistent depressive disorder F34.1 [place] [id number] [place] [address] Mar, [place] [address] [address] Mar, Generalized anxiety disorder F41.1 [place] [address] [address] Mar, Tarsal tunnel syndrome of both lower extremities G57.53 [place] [address] [address] February, [place] [address] [address] February, [place] [address] [address] February, Asthma J45.909 [facility] [id number] [place] [address] February, Generalized anxiety disorder F41.1 [place] [id number] [place] [address] February, Hypoxemia R09.02 ; Hyperglycemia R73.9 ; Rheumatoid arthritis M06.9 and Generalized anxiety disorder F41.1 [place] [address] [address] February, [place] [address] [address] Jan, Chronic obstructive pulmonary disease, unspecified J44.9 [place] [address] [address] Jan, Chronic pain syndrome G89.4 [place] [address] [address] Jan, Hypoxemia R09.02 [place] [address] [address] Jan, [place] [address] [address] Jan, Chronic obstructive pulmonary disease, unspecified J44.9 ; Hypoxemia R09.02 ; Other insomnia G47.09 and Left anterior shoulder pain M25.512 [place] [id number] [place] [address] Jan, Numbness in feet R20.0 and Neuropathy G62.9 [place] [address] [address] Jan, [place] [address] [address] Dec, Acute pain of left shoulder M25.512 [place] [address] [address] Dec, Acute pain of left shoulder M25.512 [facility] [address] [address] Dec, Generalized anxiety disorder F41.1 [facility] [address] [address] Dec, Generalized anxiety disorder F41.1 [facility] [id number] [place] [address] Nov, ADHD (attention deficit hyperactivity disorder), combined type F90.2 ; Generalized anxiety disorder F41.1 and Persistent depressive disorder F34.1 [facility] [id number] [place] [address] Nov, Acute pain of left shoulder M25.512 [facility] [id number] [place] [address] Nov, ADHD (attention deficit hyperactivity disorder), combined type F90.2 ; Generalized anxiety disorder F41.1 and Persistent depressive disorder F34.1 [facility] [id number] [place] [address] Nov, Chronic pain syndrome G89.4 [facility] [id number] [place] [address] Nov, Chronic pain syndrome G89.4 [facility] [address] [place] [address] 08 Nov, 2016 Acute pain of left shoulder M25.512 [facility] [address] [address] Nov, Generalized anxiety disorder F41.1 [facility] [id number] [place] [address] Nov, Acute pain of left shoulder M25.512 [facility] [address] [place] [address] Nov, ADHD (attention deficit hyperactivity disorder), combined type F90.2 ; Generalized anxiety disorder F41.1 and Persistent depressive disorder F34.1 [place] [id number] [place] [address] Nov, Acute pain of left shoulder M25.512 ; Generalized anxiety disorder F41.1 ; Chronic pain syndrome G89.4 ; Hyperinsulinemia E16.1 ; Pain of left foot M79.672 and Pain in right foot M79.671 [place] [address] [address] Oct, ADHD (attention deficit hyperactivity disorder), combined type F90.2 ; Generalized anxiety disorder F41.1 and Dysthymic disorder F34.1 [place] [address] [address] Sep, [address] [address] Sep, [address] [address] Sep, Routine gynecological examination V72.31 ; Cervical cancer screening Z12.4 ; Breast cancer screening Z12.39 ; Colon cancer screening Z12.11 ; Hypokalemia E87.6 ; Herpes simplex type 1 infection B00.9 and Abscess of right axilla L02.411 [place] [id number] [place] [address] Sep, [address] [address] Sep, ADHD (attention deficit hyperactivity disorder), combined type F90.2 ; Generalized anxiety disorder F41.1 and Dysthymic disorder F34.1 [place] [address] [address] Aug, [place] [address] [address] Aug, [address] [place] [address] Aug, Generalized anxiety disorder F41.1 [place] [address] [address] Aug, ADHD (attention deficit hyperactivity disorder), combined type F90.2 ; Generalized anxiety disorder F41.1 and Dysthymic disorder F34.1 [place] [address] [address] Jul, Chronic pain syndrome G89.4 ; Hypertension I10 ; Hypokalemia E87.6 ; Asthma J45.909 and Nausea R11.0 [place] [address] [address] Jul, [place] [address] [address] Jul, Asthma J45.909 [place] [address] [address] Jul, ADHD (attention deficit hyperactivity disorder), combined type F90.2 ; Generalized anxiety disorder F41.1 and Dysthymic disorder F34.1 [place] [address] [address] Jul, [place] [address] [address] Jul, Hypertension I10 ; Arteriosclerotic coronary artery disease I25.10 ; Mixed hyperlipidemia E78.2 ; Other terminal operator (current) drug therapy Z79.899 and Hyperglycemia R73.9 [place] [address] [address] 16 Jun, 2016 Hypokalemia E87.6 and Hyperglycemia R73.9 [place] [address] [address] 14 Jun, 2016 [place] [address] [address] Jun, Abnormal kidney function N28.9 [place] [address] [address] Jun, [place] [address] [address] Jun, ADHD (attention deficit hyperactivity disorder), combined type F90.2 ; Generalized anxiety disorder F41.1 and Dysthymic disorder F34.1 [place] [address] [address] Jun, Generalized anxiety disorder F41.1 and Dysthymic disorder F34.1 [place] [address] [address] Jun, Hypokalemia E87.6 [place] [address] [address] May, Hypokalemia E87.6 ; Vertigo R42 and Hyperinsulinemia E16.1 [place] [address] [address] May, [place] [address] [address] May, Abnormal kidney function N28.9 ; Hyperinsulinemia E16.1 and Nausea R11.[address] [address] May, Hypokalemia E87.6 ; Nausea R11.0 ; Epigastric pain R10.13 ; Dehydration E86.0 ; Diaphoresis R61 and Right arm pain M79.601 [place] [address] [address] May, [place] [address] [place] [address] May, Hypokalemia E87.6 [place] [address] [address] May, Hypokalemia E87.6 [facility] [id number] [place] [address] Apr, [facility] [id number] [place] [address] Apr, ADHD (attention deficit hyperactivity disorder), combined type F90.2 ; Generalized anxiety disorder F41.1 and Dysthymic disorder F34.1 [place] [id number] [place] [address] Apr, Right arm pain M79.601 and Hyperinsulinemia E16.1 [place] [address] [address] Mar, [place] [id number] [place] [address] Mar, [place] [id number] [place] [address] Mar, Hyperinsulinemia E16.1 ; Hyperlipidemia, unspecified hyperlipidemia type E78.5 ; Central venous catheter in place Z78.9 ; Generalized anxiety disorder F41.1 and Urinary tract infection, site not specified N39.0 [place] [id number] [place] [address] Mar, ADHD (attention deficit hyperactivity disorder), combined type F90.2 ; Generalized anxiety disorder F41.1 and Dysthymic disorder F34.1 [place] [id number] [place] [address] February, ADHD (attention deficit hyperactivity disorder), combined type F90.2 ; Generalized anxiety disorder F41.1 and Dysthymic disorder F34.1 [place] [id number] [place] [address] February, [place] [id number] [place] [address] February, [place] [id number] [place] [address] February, Hypertension I10 and Weight gain R63.5 [place] [id number] [place] [address] February, Major depressive disorder, recurrent, moderate F33.1 and Generalized anxiety disorder F41.1 [place] [address] [place] [address] February, ADHD (attention deficit hyperactivity disorder), combined type F90.2 ; Generalized anxiety disorder F41.1 and Dysthymic disorder F34.1 [place] [id number] [place] [address] February, [place] [id number] [place] [address] February, Asthma J45.909 ; Weight gain R63.5 ; Hypertension I10 ; Rheumatoid arthritis M06.9 and Chronic pain syndrome G89.4 [place] [id number] [place] [address] Jan, ADHD (attention deficit hyperactivity disorder), combined type F90.2 ; Generalized anxiety disorder F41.1 and Dysthymic disorder F34.1 [place] [address] [place] [address] Dec, ADHD (attention deficit hyperactivity disorder), combined type F90.2 ; Generalized anxiety disorder F41.1 and Dysthymic disorder F34.1 [place] [id number] [place] [address] Dec, [place] [address] [address] Nov, [place] [id number] [place] [address] Nov, [place] [address] [address] Nov, [place] [id number] [address] Nov, [facility] [address] [address] Oct, [facility] [address] [address] Oct, [facility] [id number] [place] [address] Oct, [facility] [id number] [place] [address] Sep, [facility] [id number] [place] [address] Sep, [facility] [address] [address] Sep, Agoraphobia with panic disorder F40.01 ; Attention-deficit hyperactivity disorder, combined type F90.2 and Dysthymic disorder F34.1 [facility] [address] [address] Aug, [facility] [id number] [address] Aug, [facility] [id number] [address] Aug, [facility] [id number] [address] Aug, Dysthymic disorder F34.1 ; Generalized anxiety disorder F41.1 and ADHD (attention deficit hyperactivity disorder), combined type F90.2 [facility] [id number] [address] Aug, ADHD (attention deficit hyperactivity disorder), combined type F90.2 ; Generalized anxiety disorder F41.1 and Dysthymic disorder F34.1 [facility] [id number] [address] Jul, Urinary tract infection, site not specified N39.0 ; Hypotension, unspecified I95.9 and Breast cancer screening Z12.39 [facility] [address] [id number] [place] [address] Jul, [facility] [id number] [place] [address] Jul, [facility] [id number] [place] [address] Jul, Urinary tract infection, site not specified N39.0 ; Nausea R11.0 ; Gastroenteritis K52.9 ; Renal failure N19 and Other hypotension I95.89 [facility] [id number] [place] [address] Jul, [facility] [id number] [place] [address] Jul, [facility] [id number] [place] [address] Jul, [facility] [id number] [place] [address] Jun, [facility] [id number] [place] [address] Jun, Major depression in partial remission 296.25 ; Generalized anxiety disorder 300.02 and ADHD, predominantly inattentive type 314.01 [facility] [id number] [place] [address] May, [facility] [id number] [place] [address] Apr, Major depressive disorder, recurrent episode, severe, without mention of psychotic behavior 296.33 ; Agoraphobia with panic disorder 300.21 and Generalized anxiety disorder 300.02 [facility] [id number] [place] [address] Apr, ADHD (attention deficit hyperactivity disorder), combined type 314.01 ; Generalized anxiety disorder 300.02 and Dysthymic disorder 300.4 [facility] [id number] [place] [address] Apr, CAD (coronary artery disease) 414.00 ; HTN (hypertension) 401.9 and Tobacco use 305.1 [facility] [id number] [place] [address] Apr, [facility] [address] [address] Mar, ADHD (attention deficit hyperactivity disorder), combined type 314.01 ; Generalized anxiety disorder 300.02 ; Dysthymic disorder 300.4 ; No condition on [place] V71.09 ; Rheumatoid arthritis 714.0 ; Incontinence 788.30 ; Irritable bowel syndrome 564.1 ; Osteoporosis 733.00 and Chronic pain 338.29 [address] [facility] [id number] [place] [address] Mar, Agoraphobia with panic disorder 300.21 and Major depressive disorder, recurrent episode, moderate 296.32 [facility] [id number] [place] [address] Mar, [facility] [id number] [place] [address] February, [facility] [id number] [place] [address] February, Agoraphobia with panic disorder 300.21 and Major depressive disorder, recurrent episode, moderate 296.32 [facility] [id number] [place] [address] February, [facility] [id number] [place] [address] Jan, [facility] [id number] [place] [address] Jan, [facility] [id number] [place] [address] Dec, [facility] [place] [facility] [address] [id number] [place] [address] Dec, [facility] [place] [facility] [address] [id number] [place] [address] Dec, [facility] [place] [facility] [address] [id number] [place] [address] Dec, [facility] [place] [facility] [address] [id number] [place] [address] Dec, [facility] [place] [facility] [address] [id number] [place] [address] Dec, [facility] [place] [facility] [address] [id number] [place] [address] Nov, [facility] [place] [facility] [address] [id number] [place] [address] Nov, [facility] [place] [facility] [address] [id number] [place] [address] Nov, 2014 [facility] [place] [facility] [address] [id number] [place] [address] Nov, [facility] [place] [facility] [address] [id number] [place] [address] Nov, [facility] [place] [facility] [address] [id number] [place] [address] Nov, [facility] [place] [facility] [address] [id number] [place] [address] Nov, 2014 [facility] [place] [facility] [address] [id number] [place] [address] Nov, [facility] [place] [facility] [address] [id number] [place] [address] Oct, [facility] [place] [facility] [address] [id number] [place] [address] Oct, [facility] [place] [facility] [address] [id number] [place] [address] Oct, [facility] [place] [facility] [address] [id number] [place] [address] Oct, [facility] [place] [facility] [address] [id number] [place] [address] Oct, [facility] [place] [facility] [address] [id number] [place] [address] Oct, [facility] [place] [facility] [address] [id number] [place] [address] Sep, [facility] [place] [facility] [address] [id number] [place] [address] Sep, [facility] [place] [facility] [address] [id number] [place] [address] Sep, [facility] [place] [facility] [address] [id number] [place] [address] Sep, [facility] [place] [facility] [address] [id number] [place] [address] Sep, [facility] [place] [facility] [address] [id number] [place] [address] Sep, [facility] [place] [facility] [address] [id number] [place] [address] Sep, [facility] [place] [facility] [address] [id number] [place] [address] Aug, [facility] [place] [facility] [address] [id number] [place] [address] Aug, [facility] [place] [facility] [address] [id number] [place] [address] Aug, [facility] [place] [facility] [address] [id number] [place] [address] Aug, [facility] [place] [facility] [address] [id number] [place] [address] Aug, [facility] [place] [facility] [address] [id number] [place] [address] Aug, [facility] [place] [facility] [address] [id number] [place] [address] Jul, [facility] [place] [facility] [address] [id number] [place] [address] Jul, [facility] [place] [facility] [address] [id number] [place] [address] Jul, [facility] [place] [facility] [address] [id number] [place] [address] Jul, [facility] [place] [facility] [address] [id number] [place] [address] Jul, [facility] [place] [facility] [address] [id number] [place] [address] Jul, [facility] [place] [facility] [address] [id number] [place] [address] Jun, [facility] [place] [facility] [address] [id number] [place] [address] Jun, [facility] [place] [facility] [address] [id number] [place] [address] May, [facility] [place] [facility] [address] [id number] [place] [address] May, [facility] [place] [facility] [address] [id number] [place] [address] Apr, [facility] [place] [facility] [address] [id number] [place] [address] Apr, [facility] [place] [facility] [address] [id number] [place] [address] Apr, [facility] [place] [facility] [address] [id number] [place] [address] Apr, [facility] [place] [facility] [address] [id number] [place] [address] Mar, [facility] [place] [facility] [address] [id number] [place] [address] Mar, [facility] [place] [facility] [address] [id number] [place] [address] Mar, [facility] [place] [facility] [address] [id number] [place] [address] Mar, [facility] [place] [facility] [address] [id number] [place] [address] February, [facility] [place] [facility] [address] [id number] [place] [address] February, [facility] [place] [facility] [address] [id number] [place] [address] February, [facility] [place] [facility] [address] [id number] [place] [address] February, [facility] [place] [facility] [address] [id number] [place] [address] February, [facility] [place] [facility] [address] [id number] [place] [address] February, [facility] [place] [facility] [address] [id number] [place] [address] Jan, [facility] [place] [facility] [address] [id number] [place] [address] Jan, [facility] [place] [facility] [address] [id number] [address] Dec, [facility] [place] [facility] [address] [id number] [place] [address] Dec, [facility] [place] [facility] [address] [id number] [place] [address] Nov, [facility] [place] [facility] [address] [id number] [place] [address] Nov, [facility] [place] [facility] [address] [id number] [place] [address] Oct, [facility] [address] [id number] [place] [address] Oct, [facility] [address] [id number] [place] [address] Oct, [facility] [address] [id number] [place] [address] Oct, [facility] [address] [id number] [place] [address] Sep, [facility] [address] [id number] [place] [address] Sep, [facility] [address] [id number] [place] [address] Sep, [facility] [address] [id number] [place] [address] Sep, [facility] [address] [id number] [place] [address] Sep, [facility] [address] [id number] [place] [address] Sep, [facility] [address] [facility] [id number] [place] [address] Sep, [facility] [address] [id number] [place] [address] Sep, [facility] [address] [id number] [place] [address] Aug, [facility] [address] [id number] [place] [address] Aug, [facility] [address] [facility] [id number] [place] [address] Aug, [facility] [address] [id number] [place] [address] Aug, [facility] [place] [facility] [address] [id number] [place] [address] Aug, [facility] [place] [facility] [address] [id number] [place] [address] Aug, [facility] [place] [facility] [address] [id number] [place] [address] Aug, [facility] [place] [facility] [address] [id number] [place] [address] Aug, [facility] [place] [facility] [address] [id number] [place] [address] Aug, [facility] [place] [facility] [address] [id number] [place] [address] Jul, [facility] [place] [facility] [address] [id number] [place] [address] Jun, [facility] [place] [facility] [address] [id number] [place] [address] May, [facility] [place] [facility] [address] [id number] [place] [address] May, [facility] [place] [facility] [address] [id number] [address] May, [facility] [place] [facility] [address] [id number] [place] [address] Apr, [facility] [place] [facility] [address] [id number] [place] [address] Mar, [facility] [place] [facility] [address] [id number] [place] [address] February, [facility] [place] [facility] [address] [id number] [place] [address] Oct, [facility] [place] [facility] [address] [id number] [place] [address] Oct, [facility] [place] [facility] [address] [id number] [place] [address] Oct, [facility] [place] [facility] [address] [id number] [place] [address] 14 Oct, 2012 [facility] [place] [facility] [address] [id number] [place] [address] Oct, [facility] [place] [facility] [address] [facility] [id number] [place] [address] Oct, [facility] [place] [facility] [address] [id number] [place] [address] Sep, [facility] [place] [facility] [address] [id number] [place] [address] Sep, [facility] [place] [facility] [address] [facility] [id number] [place] [address] Aug, [facility] [place] [facility] [id number] [address] Aug, [facility] [place] [facility] [address] [facility] [id number] [place] [address] Jul, [facility] [place] [facility] [address] [facility] [id number] [place] [address] Jul, [facility] [place] [facility] [address] [facility] [id number] [place] [address] Jul, [facility] [place] [facility] [address] [facility] [id number] [place] [address] Jul, [facility] [place] [facility] [address] [facility] [id number] [place] [address] Jul, [facility] [place] [facility] [address] [id number] [place] [address] Jul, [facility] [place] [facility] [address] [facility] [id number] [place] [address] Jul, [facility] [place] [facility] [address] [facility] [id number] [place] [address] Jul, [facility] [place] [facility] [address] [id number] [place] [address] 16 Jun, 2012 [facility] [place] [facility] [address] [id number] [place] [address] Jun, [facility] [place] [facility] [address] [id number] [place] [address] May, [facility] [place] [facility] [address] [id number] [place] [address] Apr, [facility] [place] [facility] [address] [id number] [place] [address] Mar, [facility] [place] [facility] [address] [id number] [place] [address] Mar, [facility] [place] [facility] [address] [id number] [place] [address] Mar, [facility] [place] [facility] [address] [id number] [place] [address] Mar, [facility] [place] [facility] [address] [id number] [place] [address] Jan, [facility] [place] [facility] [address] [id number] [place] [address] Nov, [facility] [place] [facility] [address] [id number] [place] [address] Nov, [facility] [place] [facility] [address] [id number] [place] [address] Nov, [facility] [place] [facility] [address] [id number] [place] [address] Oct, [facility] [place] [facility] [address] [id number] [place] [address] Sep, [facility] [place] [facility] [address] [id number] [place] [address] Sep, [facility] [place] [facility] [address] [id number] [place] [address] Aug, [facility] [id number] [address] Aug, [facility] [id number] [address] Aug, [facility] [id number] [address] Aug, [facility] [id number] [address] Jul, [facility] [id number] [address] May, [facility] [id number] [place] [address] Jan, [facility] [id number] [place] [address] Nov, [facility] [id number] [address] Apr, [facility] [id number] [address] Dec, [facility] [id number] [address] Nov, IMMUNIZATIONS No Known Immunizations SOCIAL HISTORY Never Assessed REASON FOR VISIT Order Request PLAN OF CARE VITAL SIGNS MEDICATIONS Unknown Medications RESULTS No Results PROCEDURES No Known procedures INSTRUCTIONS MEDICATIONS ADMINISTERED No Known Medications MEDICAL (GENERAL) HISTORY Type Description Date Medical History Cardiovascular dgbttewi-OMI-Mlbuqoqt, non-obstructive per (01/2011) Dr. Mendoza Medical History [...] injury 07/10/15-07/11/2015 Hospitalization History Symptomatic Hypokalemia/Nause-[facility] 05/13/16 Hospitalization History Stroke 05/03/2017 Hospitalization History stroke 08/24/2017--09/01/2017
--- OUTSIDE RECORDS SUMMARY | 2019-05-22 07:43 | XMS REPORT ---
Author Author LORI SNOWDEN [facility] Address [address] [place] [address] Care Team Providers Care Straight Slicing Machine Operator Name Role Phone LORI SNOWDEN Unavailable PROBLEMS Type Condition ICD9-CM Code [id number] Code Onset Dates Condition Status SNOMED Code Problem Hemiparesis of left nondominant side as late effect of cerebral infarction I69.354 Active 501511903 Problem Morbid (severe) obesity due to excess calories E66.01 Active 172359913 Problem Generalized anxiety disorder F41.1 Active 48995628 Problem ADHD (attention deficit hyperactivity disorder), combined type F90.2 Active 28518349 Problem Chronic pain syndrome G89.4 Active 087614984 Problem Rheumatoid arthritis M06.9 Active 87321146 Problem Gastroesophageal reflux disease with esophagitis K21.0 Active 406822510 Problem Asthma J45.909 Active 706515303 Problem Anxiety F41.9 Active 49286965 Problem Hypertension I10 Active 86485362 Problem Irritable bowel syndrome with diarrhea K58.0 Active 297020513 Problem Mild episode of recurrent major depressive disorder F33.0 Active 190021781 Problem Panic attacks F41.0 Active 299477458 Problem Hemiplegia affecting left nondominant side G81.94 Active Problem Chronic obstructive pulmonary disease J44.9 Active 58424468 Problem Hyperinsulinemia E16.1 Active 79618890 Problem Mixed hyperlipidemia E78.2 Active 603943980 Problem Arteriosclerotic coronary artery disease I25.10 Active 71067663 Problem Primary insomnia F51.01 Active 1875192 Problem Seasonal allergies J30.2 Active 370196464 Problem Unsteady gait R26.81 Active 94423250 Problem Paroxysmal atrial fibrillation I48.0 Active 061941247 Problem Obstructive sleep apnea G47.33 Active 37680963 Problem 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 project manager (current) drug therapy Z79.899 Active 684253996 Problem Neuropathy G62.9 Active 886324944 Problem Other insomnia G47.09 Active 889707496 Problem Sleep apnea in adult G47.30 Active 25950118 Problem Rheumatoid arthritis involving multiple sites, unspecified rheumatoid factor presence M06.9 Active 497258451 Problem Cerebrovascular accident (CVA), unspecified mechanism I63.9 Active 243907705 Problem Dysthymic disorder F34.1 Active 62251327 ALLERGIES No Information ENCOUNTERS Encounter Location Date Diagnosis [facility] [address] [address] Sep, [facility] [id number] [place] [address] Aug, [facility] [id number] [place] [address] Aug, [facility] [id number] [place] [address] Aug, [facility] [id number] [place] [address] Jul, [facility] [id number] [place] [address] Jul, [facility] [id number] [place] [address] Jul, [facility] [id number] [place] [address] Jul, [facility] [address] [place] [address] Jul, [facility] [address] [place] [address] Jul, [facility] [employer] [address] [id number] Jul, Hemiplegia affecting left nondominant side G81.94 ; Chronic obstructive pulmonary disease J44.9 and Weakness R53.1 [facility] [address] [address] Jul, [facility] [employer] [address] [id number] Jul, Weakness R53.1 ; Paroxysmal atrial fibrillation I48.0 and Unsteady gait R26.81 [facility] [id number] [place] [address] Jul, Tobacco abuse Z72.0 [facility] [employer] [facility] [address] [place] [id number] Jun, History of acute respiratory failure Z87.09 ; Weight gain R63.5 and Tobacco abuse Z72.0 [facility] [id number] [place] [address] Jun, [facility] [id number] [place] [address] May, Primary insomnia F51.01 [facility] [id number] [place] [address] May, Mild episode of recurrent major depressive disorder F33.0 [facility] [id number] [place] [address] May, [facility] [id number] [place] [address] May, Chronic obstructive pulmonary disease, unspecified COPD type J44.9 ; Primary insomnia F51.01 ; Fatigue, unspecified type R53.83 and Weight gain R63.5 [facility] [address] [place] [address] May, Thrush B37.0 [facility] [id number] [place] [address] May, Mild episode of recurrent major depressive disorder F33.0 and Generalized anxiety disorder F41.1 [facility] [id number] [place] [address] May, Thrush B37.0 [facility] [address] [address] Apr, Cough R05 [facility] [id number] [place] [address] Mar, Mild episode of recurrent major depressive disorder F33.0 [facility] [address] [address] Mar, Mild episode of recurrent major depressive disorder F33.0 and Generalized anxiety disorder F41.1 [place] [address] [address] Mar, Seasonal allergies J30.2 [facility] [id number] [place] [address] Mar, Seasonal allergies J30.2 [facility] [address] [address] February, Generalized anxiety disorder F41.1 [facility] [id number] [place] [address] February, Cough R05 and Seasonal allergies J30.2 [facility] [id number] [place] [address] February, Generalized anxiety disorder F41.1 and Mild episode of recurrent major depressive disorder F33.0 [facility] [id number] [place] [address] February, Other long-term (current) drug therapy Z79.899 ; Anxiety F41.9 ; Panic attacks F41.0 and Irritable bowel syndrome with diarrhea K58.0 [facility] [id number] [place] [address] February, [facility] [id number] [place] [address] Jan, Mixed hyperlipidemia E78.2 [facility] [id number] [place] [address] Jan, [facility] [id number] [place] [address] Jan, [place] [address] [address] Jan, [facility] [id number] [place] [address], [place] [address] Jan, [facility] [address], [place] [address] Dec, [facility] [id number] [place] [address], [place] [address] Dec, [facility] [id number] [place] [address] Dec, [facility] [id number] [place] [address], [place] [address] Nov, Dysthymic disorder F34.1 [facility] [id number] [place] [address] Oct, [facility] [address] [place] [address] Oct, [facility] [id number] [place] [address] Oct, [facility] [address] [place] [address] Oct, Diarrhea, unspecified type R19.7 and Dysuria R30.0 [facility] [address] [place] [address] Oct, [facility] [address], [place] [address] Sep, [facility] [id number] [place] [address] Sep, [facility] [id number] [place] [address] Sep, Anxiety F41.9 [facility] [address] [place] [address] Sep, Cerebrovascular accident (CVA), unspecified mechanism I63.9 ; Mixed hyperlipidemia E78.2 ; Gastroesophageal reflux disease with esophagitis K21.0 and Anxiety F41.9 [facility] [id number] [place] [address] Sep, [facility] [id number] [place] [address] Aug, Chronic obstructive pulmonary disease, unspecified J44.9 ; Asthma J45.909 ; Nausea R11.0 ; Dysthymic disorder F34.1 ; Cerebrovascular accident (CVA), unspecified mechanism I63.9 and Rheumatoid arthritis M06.9 [facility] [id number] [place] [address] Aug, Nausea R11.0 ; Encounter for immunization Z23 ; Sleep apnea in adult G47.30 ; Rheumatoid arthritis involving multiple sites, unspecified rheumatoid factor presence M06.9 ; Generalized anxiety disorder F41.1 ; Dysthymic disorder F34.1 and Asthma J45.909 [facility] [id number] [place] [address] Jul, [facility] [id number] [place] [address] May, ADHD (attention deficit hyperactivity disorder), combined type F90.2 ; Generalized anxiety disorder F41.1 and Persistent depressive disorder F34.1 [facility] [id number] [place] [address] May, Cerebrovascular accident (CVA), unspecified mechanism I63.9 [facility] [id number] [place] [address] Apr, Mixed hyperlipidemia E78.2 and Cerebrovascular accident (CVA), unspecified mechanism I63.9 [facility] [id number] [place] [address] Apr, Generalized anxiety disorder F41.1 [facility] [address] [place] [address] Apr, Bronchitis J40 and Tobacco use Z72.0 [facility] [address] [address] Apr, Mixed hyperlipidemia E78.2 [facility] [address] [address] Apr, 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 project manager (current) drug therapy Z79.899 [place] [address] [address] Apr, [facility] [place] [address] [address] Apr, Generalized anxiety disorder F41.1 [facility] [address] [address] Apr, Obstructive sleep apnea G47.33 and Hyperinsulinemia E16.[address] [address] Apr, ADHD (attention deficit hyperactivity disorder), combined type F90.2 ; Generalized anxiety disorder F41.1 and Persistent depressive disorder F34.1 [facility] [id number] [place] [address] Mar, [facility] [place] [address] [address] Mar, Generalized anxiety disorder F41.1 [facility] [address] [address] Mar, Tarsal tunnel syndrome of both lower extremities G57.53 [facility] [address] [address] February, [facility] [address] [address] February, [place] [place] [address] [address] February, Asthma J45.909 [facility] [id number] [place] [address] February, Generalized anxiety disorder F41.1 [facility] [id number] [place] [address] February, Hypoxemia R09.02 ; Hyperglycemia R73.9 ; Rheumatoid arthritis M06.9 and Generalized anxiety disorder F41.1 [place] [address] [address] February, [place] [address] [address] Jan, Chronic obstructive pulmonary disease, unspecified J44.9 [place] [place] [address] [address] Jan, Chronic pain syndrome G89.4 [place] [place] [address] [address] Jan, Hypoxemia R09.02 [place] [address] [address] Jan, [place] [address] [address] Jan, Chronic obstructive pulmonary disease, unspecified J44.9 ; Hypoxemia R09.02 ; Other insomnia G47.09 and Left anterior shoulder pain M25.512 [facility] [id number] [place] [address] Jan, Numbness in feet R20.0 and Neuropathy G62.9 [place] [place] [address] [address] Jan, [place] [address] [address] Dec, Acute pain of left shoulder M25.512 [place] [address] [address] Dec, Acute pain of left shoulder M25.512 [facility] [address], [place] [address] Dec, Generalized anxiety disorder F41.1 [facility] [address], [place] [address] Dec, Generalized anxiety disorder F41.1 [facility] [id number] [place] [address] Nov, ADHD (attention deficit hyperactivity disorder), combined type F90.2 ; Generalized anxiety disorder F41.1 and Persistent depressive disorder F34.1 [facility] [id number] [place] [address] Nov, Acute pain of left shoulder M25.512 [facility] [address] [place] [address] Nov, ADHD (attention deficit hyperactivity disorder), combined type F90.2 ; Generalized anxiety disorder F41.1 and Persistent depressive disorder F34.1 [facility] [address] [place] [address] Nov, Chronic pain syndrome G89.4 [facility] [address] [place] [address] Nov, Chronic pain syndrome G89.4 [facility] [address] [place] [address] 08 Nov, 2016 Acute pain of left shoulder M25.512 [facility] [address], [place] [address] Nov, Generalized anxiety disorder F41.1 [facility] [address] [place] [address] Nov, Acute pain of left shoulder M25.512 [facility] [address] [place] [address] Nov, ADHD (attention deficit hyperactivity disorder), combined type F90.2 ; Generalized anxiety disorder F41.1 and Persistent depressive disorder F34.1 [facility] [id number] [place] [address] Nov, Acute pain of left shoulder M25.512 ; Generalized anxiety disorder F41.1 ; Chronic pain syndrome G89.4 ; Hyperinsulinemia E16.1 ; Pain of left foot M79.672 and Pain in right foot M79.671 [place] [address] [address] Oct, ADHD (attention deficit hyperactivity disorder), combined type F90.2 ; Generalized anxiety disorder F41.1 and Dysthymic disorder F34.1 [place] [place] [address] [address] Sep, [address] [address] Sep, [address] [address] Sep, Routine gynecological examination V72.31 ; Cervical cancer screening Z12.4 ; Breast cancer screening Z12.39 ; Colon cancer screening Z12.11 ; Hypokalemia E87.6 ; Herpes simplex type 1 infection B00.9 and Abscess of right axilla L02.411 [place] [id number] [place] [address] Sep, [address] [address] Sep, ADHD (attention deficit hyperactivity disorder), combined type F90.2 ; Generalized anxiety disorder F41.1 and Dysthymic disorder F34.1 [place] [place] [address] [address] Aug, [place] [address] [address] Aug, [address] [place] [address] Aug, Generalized anxiety disorder F41.1 [facility] [address] [address] Aug, ADHD (attention deficit hyperactivity disorder), combined type F90.2 ; Generalized anxiety disorder F41.1 and Dysthymic disorder F34.1 [place] [place] [address] [address] Jul, Chronic pain syndrome G89.4 ; Hypertension I10 ; Hypokalemia E87.6 ; Asthma J45.909 and Nausea R11.0 [place] [address] [address] Jul, [place] [address] [address] Jul, Asthma J45.909 [place] [address] [address] Jul, ADHD (attention deficit hyperactivity disorder), combined type F90.2 ; Generalized anxiety disorder F41.1 and Dysthymic disorder F34.1 [place] [address] [address] Jul, [place] [address] [address] Jul, Hypertension I10 ; Arteriosclerotic coronary artery disease I25.10 ; Mixed hyperlipidemia E78.2 ; 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 project manager (current) drug therapy Z79.899 and Hyperglycemia R73.9 [place] [address] [address] 16 Jun, 2016 Hypokalemia E87.6 and Hyperglycemia R73.9 [place] [address] [address] 14 Jun, 2016 [place] [address] [address] Jun, Abnormal kidney function N28.9 [place] [address] [address] Jun, [place] [address] [address] Jun, ADHD (attention deficit hyperactivity disorder), combined type F90.2 ; Generalized anxiety disorder F41.1 and Dysthymic disorder F34.1 [place] [address] [address] Jun, Generalized anxiety disorder F41.1 and Dysthymic disorder F34.1 [place] [address] [address] Jun, Hypokalemia E87.6 [place] [address] [address] May, Hypokalemia E87.6 ; Vertigo R42 and Hyperinsulinemia E16.1 [place] [address] [address] May, [place] [address] [address] May, Abnormal kidney function N28.9 ; Hyperinsulinemia E16.1 and Nausea R11.[address] [address] May, Hypokalemia E87.6 ; Nausea R11.0 ; Epigastric pain R10.13 ; Dehydration E86.0 ; Diaphoresis R61 and Right arm pain M79.601 [place] [address] [address] May, [place] [id number] May, Hypokalemia E87.6 [place] [address] [address] May, Hypokalemia E87.6 [facility] [id number] [place] [address] Apr, [facility] [id number] [place] [address] Apr, ADHD (attention deficit hyperactivity disorder), combined type F90.2 ; Generalized anxiety disorder F41.1 and Dysthymic disorder F34.1 [place] [place] [id number] [place] [address] Apr, Right arm pain M79.601 and Hyperinsulinemia E16.1 [place] [address] [address] Mar, [place] [id number] [place] [address] Mar, [place] [id number] [place] [address] Mar, Hyperinsulinemia E16.1 ; Hyperlipidemia, unspecified hyperlipidemia type E78.5 ; Central venous catheter in place Z78.9 ; Generalized anxiety disorder F41.1 and Urinary tract infection, site not specified N39.0 [place] [id number] [place] [address] Mar, ADHD (attention deficit hyperactivity disorder), combined type F90.2 ; Generalized anxiety disorder F41.1 and Dysthymic disorder F34.1 [place] [place] [id number] [place] [address] February, ADHD (attention deficit hyperactivity disorder), combined type F90.2 ; Generalized anxiety disorder F41.1 and Dysthymic disorder F34.1 [place] [place] [id number] [place] [address] February, [place] [id number] [place] [address] February, [facility] [place] [id number] [place] [address] February, Hypertension I10 and Weight gain R63.5 [place] [address] [place] [address] February, Major depressive disorder, recurrent, moderate F33.1 and Generalized anxiety disorder F41.1 [place] [address] [place] [address] February, ADHD (attention deficit hyperactivity disorder), combined type F90.2 ; Generalized anxiety disorder F41.1 and Dysthymic disorder F34.1 [place] [address] [place] [address] February, [place] [id number] [place] [address] February, Asthma J45.909 ; Weight gain R63.5 ; Hypertension I10 ; Rheumatoid arthritis M06.9 and Chronic pain syndrome G89.4 [place] [address] [place] [address] Jan, ADHD (attention deficit hyperactivity disorder), combined type F90.2 ; Generalized anxiety disorder F41.1 and Dysthymic disorder F34.1 [place] [address] [place] [address] Dec, ADHD (attention deficit hyperactivity disorder), combined type F90.2 ; Generalized anxiety disorder F41.1 and Dysthymic disorder F34.1 [place] [address] [place] [address] Dec, [place] [address] [address] Nov, [facility] [place] [id number] [place] [address] Nov, [place] [address], [place] [address] Nov, [place] [id number] [address] Nov, [facility] [address], [place] [address] Oct, [facility] [address] [address] Oct, [facility] [id number] [place] [address] Oct, [facility] [address] [place] [address] Sep, [facility] [id number] [place] [address] Sep, [facility] [address] [address] Sep, Agoraphobia with panic disorder F40.01 ; Attention-deficit hyperactivity disorder, combined type F90.2 and Dysthymic disorder F34.1 [facility] [address] [address] Aug, [facility] [address] [address] Aug, [facility] [address] [address] Aug, [facility] [address] [address] Aug, Dysthymic disorder F34.1 ; Generalized anxiety disorder F41.1 and ADHD (attention deficit hyperactivity disorder), combined type F90.2 [facility] [address] [address] Aug, ADHD (attention deficit hyperactivity disorder), combined type F90.2 ; Generalized anxiety disorder F41.1 and Dysthymic disorder F34.1 [facility] [id number] [address] Jul, Urinary tract infection, site not specified N39.0 ; Hypotension, unspecified I95.9 and Breast cancer screening Z12.39 [facility] [id number] [place] [address] Jul, [facility] [id number] [place] [address] Jul, [facility] [id number] [place] [address] Jul, Urinary tract infection, site not specified N39.0 ; Nausea R11.0 ; Gastroenteritis K52.9 ; Renal failure N19 and Other hypotension I95.89 [facility] [id number] [place] [address] Jul, [facility] [id number] [place] [address] Jul, [facility] [id number] [place] [id number] Jul, [facility] [id number] [place] [address] Jun, [facility] [id number] [place] [address] Jun, Major depression in partial remission 296.25 ; Generalized anxiety disorder 300.02 and ADHD, predominantly inattentive type 314.01 [facility] [id number] [place] [address] May, [facility] [id number] [place] [address] Apr, Major depressive disorder, recurrent episode, severe, without mention of psychotic behavior 296.33 ; Agoraphobia with panic disorder 300.21 and Generalized anxiety disorder 300.02 [facility] [id number] [place] [address] Apr, ADHD (attention deficit hyperactivity disorder), combined type 314.01 ; Generalized anxiety disorder 300.02 and Dysthymic disorder 300.4 [facility] [id number] [place] [address] Apr, CAD (coronary artery disease) 414.00 ; HTN (hypertension) 401.9 and Tobacco use 305.1 [facility] [id number] [place] [address] Apr, [facility] [address] [address] Mar, ADHD (attention deficit hyperactivity disorder), combined type 314.01 ; Generalized anxiety disorder 300.02 ; Dysthymic disorder 300.4 ; No condition on [place] V71.09 ; Rheumatoid arthritis 714.0 ; Incontinence 788.30 ; Irritable bowel syndrome 564.1 ; Osteoporosis 733.00 and Chronic pain 338.29 [address] [id number] [place] [address] Mar, Agoraphobia with panic disorder 300.21 and Major depressive disorder, recurrent episode, moderate 296.32 [facility] [id number] [place] [address] Mar, [facility] [id number] [place] [address] February, [facility] [id number] [place] [address] February, Agoraphobia with panic disorder 300.21 and Major depressive disorder, recurrent episode, moderate 296.32 [facility] [id number] [place] [address] February, [facility] [id number] [place] [address] Jan, [facility] [id number] [place] [address] Jan, [facility] [id number] [place] [address] Dec, [facility] [place] [facility] [address] [id number] [place] [address] Dec, [facility] [place] [facility] [address] [id number] [place] [address] Dec, [facility] [place] [facility] [address] [id number] [place] [address] Dec, [facility] [place] [facility] [address] [id number] [place] [address] Dec, [facility] [place] [facility] [address] [id number] [place] [address] Dec, [facility] [place] [facility] [address] [id number] [place] [address] Nov, [facility] [place] [facility] [address] [id number] [place] [address] Nov, [facility] [place] [facility] [address] [id number] [place] [address] Nov, 2014 [facility] [place] [facility] [address] [id number] [place] [address] Nov, [facility] [place] [facility] [address] [id number] [place] [address] Nov, [facility] [place] [facility] [address] [id number] [place] [address] Nov, [facility] [place] [facility] [address] [id number] [place] [address] Nov, 2014 [facility] [place] [facility] [address] [id number] [place] [address] Nov, [facility] [place] [facility] [address] [id number] [place] [address] Oct, [facility] [place] [facility] [address] [id number] [place] [address] Oct, [facility] [place] [facility] [address] [id number] [place] [address] Oct, [facility] [place] [facility] [address] [id number] [place] [address] Oct, [facility] [place] [facility] [address] [id number] [place] [address] Oct, [facility] [place] [facility] [address] [id number] [place] [address] Oct, [facility] [place] [facility] [address] [id number] [place] [address] Sep, [facility] [place] [facility] [address] [id number] [place] [address] Sep, [facility] [place] [facility] [address] [id number] [place] [address] Sep, [facility] [place] [facility] [address] [id number] [place] [address] Sep, [facility] [place] [facility] [address] [id number] [place] [address] Sep, [facility] [place] [facility] [address] [id number] [place] [address] Sep, [facility] [place] [facility] [address] [id number] [place] [address] Sep, [facility] [place] [facility] [address] [id number] [place] [address] Aug, [facility] [place] [facility] [address] [id number] [place] [address] Aug, [facility] [place] [facility] [address] [id number] [place] [address] Aug, [facility] [place] [facility] [address] [id number] [place] [address] Aug, [facility] [place] [facility] [address] [id number] [place] [address] Aug, [facility] [place] [facility] [address] [id number] [place] [address] Aug, [facility] [place] [facility] [address] [id number] [place] [address] Jul, [facility] [place] [facility] [address] [id number] [place] [address] Jul, [facility] [place] [facility] [address] [id number] [place] [address] Jul, [facility] [place] [facility] [address] [id number] [place] [address] Jul, [facility] [place] [facility] [address] [id number] [place] [address] Jul, [facility] [place] [facility] [address] [id number] [place] [address] Jul, [facility] [place] [facility] [address] [id number] [place] [address] Jun, [facility] [place] [facility] [address] [id number] [place] [address] Jun, [facility] [place] [facility] [address] [id number] [place] [address] May, [facility] [place] [facility] [address] [id number] [place] [address] May, [facility] [place] [facility] [address] [id number] [place] [address] Apr, [facility] [place] [facility] [address] [id number] [place] [address] Apr, [facility] [place] [facility] [address] [id number] [place] [address] Apr, [facility] [place] [facility] [address] [id number] [place] [address] Apr, [facility] [place] [facility] [address] [id number] [place] [address] Mar, [facility] [place] [facility] [address] [id number] [place] [address] Mar, [facility] [place] [facility] [address] [id number] [place] [address] Mar, [facility] [place] [facility] [address] [id number] [place] [address] Mar, [facility] [place] [facility] [address] [id number] [place] [address] February, [facility] [place] [facility] [address] [id number] [place] [address] February, [facility] [place] [facility] [address] [id number] [place] [address] February, [facility] [place] [facility] [address] [id number] [place] [address] February, [facility] [place] [facility] [address] [id number] [place] [address] February, [facility] [place] [facility] [address] [id number] [place] [address] February, [facility] [place] [facility] [address] [id number] [place] [address] Jan, [facility] [place] [facility] [address] [id number] [place] [address] Jan, [facility] [place] [facility] [address] [id number], [place] [address] Dec, [facility] [place] [facility] [address] [id number] [place] [address] Dec, [facility] [place] [facility] [address] [id number] [place] [address] Nov, [facility] [place] [facility] [address] [id number] [place] [address] Nov, [facility] [place] [facility] [address] [id number] [place] [address] Oct, [facility] [address] [id number] [place] [address] Oct, [facility] [address] [id number] [place] [address] Oct, [facility] [address] [id number] [place] [address] Oct, [facility] [address] [id number] [place] [address] Sep, [facility] [address] [id number] [place] [address] Sep, [facility] [address] [id number] [place] [address] Sep, [facility] [address] [id number] [place] [address] Sep, [facility] [address] [id number] [place] [address] Sep, [facility] [address] [id number] [place] [address] Sep, [facility] [address] [facility] [id number] [place] [address] Sep, [facility] [address] [id number] [place] [address] Sep, [facility] [address] [id number] [place] [address] Aug, [facility] [address] [id number] [place] [address] Aug, [facility] [address] [facility] [id number] [place] [address] Aug, [facility] [address] [id number] [place] [address] Aug, [facility] [place] [facility] [address] [id number] [place] [address] Aug, [facility] [place] [facility] [address] [id number] [place] [address] Aug, [facility] [place] [facility] [address] [id number] [place] [address] Aug, [facility] [place] [facility] [address] [id number] [place] [address] Aug, [facility] [place] [facility] [address] [id number] [place] [address] Aug, [facility] [place] [facility] [address] [id number] [place] [address] Jul, [facility] [place] [facility] [address] [id number] [place] [address] Jun, [facility] [place] [facility] [address] [id number] [place] [address] May, [facility] [place] [facility] [address] [id number] [place] [address] May, [facility] [place] [facility] [address] [id number], [place] [address] May, [facility] [place] [facility] [address] [id number], [place] [address] Apr, [facility] [place] [facility] [address] [id number], [place] [address] Mar, [facility] [place] [facility] [address] [id number] [place] [address] February, [facility] [place] [facility] [address] [id number], [place] [address] Oct, [facility] [place] [facility] [address] [id number], [place] [address] Oct, [facility] [place] [facility] [address] [id number], [place] [address] Oct, [facility] [place] [facility] [address] [id number] [place] [address] Oct, 2012 [facility] [place] [facility] [address] [id number] [place] [address] Oct, [facility] [place] [facility] [address] [facility] [id number] [place] [address] Oct, [facility] [place] [facility] [address] [id number] [place] [address] Sep, [facility] [place] [facility] [address] [id number] [place] [address] Sep, [facility] [place] [facility] [address] [facility] [id number] [place] [address] Aug, [facility] [place] [facility] [id number] [place] [address] Aug, [facility] [place] [facility] [address] [facility] [id number] [place] [address] Jul, [facility] [place] [facility] [address] [facility] [id number] [place] [address] Jul, [facility] [place] [facility] [address] [facility] [id number] [place] [address] Jul, [facility] [place] [facility] [address] [facility] [id number], [place] [address] Jul, [facility] [place] [facility] [address] [facility] [id number], [place] [address] Jul, [facility] [place] [facility] [address] [id number] [place] [address] Jul, [facility] [place] [facility] [address] [facility] [id number] [place] [address] Jul, [facility] [place] [facility] [address] [facility] [id number] [place] [address] Jul, [facility] [place] [facility] [address] [id number] [place] [address] 16 Jun, 2012 [facility] [place] [facility] [address] [id number] [place] [address] Jun, [facility] [place] [facility] [address] [id number] [place] [address] May, [facility] [place] [facility] [address] [id number] [place] [address] Apr, [facility] [place] [facility] [address] [id number] [place] [address] Mar, [facility] [place] [facility] [address] [id number] [place] [address] Mar, [facility] [place] [facility] [address] [id number] [place] [address] Mar, [facility] [place] [facility] [address] [id number] [place] [address] Mar, [facility] [place] [facility] [address] [id number] [place] [address] Jan, [facility] [place] [facility] [address] [id number] [place] [address] Nov, [facility] [place] [facility] [address] [id number] [place] [address] Nov, [facility] [place] [facility] [address] [id number] [place] [address] Nov, [facility] [place] [facility] [address] [id number] [place] [address] Oct, [facility] [place] [facility] [address] [id number] [place] [address] Sep, [facility] [place] [facility] [address] [id number] [place] [address] Sep, [facility] [place] [facility] [address] [id number] [place] [address] Aug, [facility] [address] [id number] [address] Aug, [facility] [address] [address] Aug, [facility] [address] [address] Aug, [facility] [address] [address] Jul, [facility] [address] [address] May, [facility] [address] [address] Jan, [facility] [address] [address] Nov, [facility] [address] [address] Apr, [facility] [address] [address] Dec, [facility] [id number] [address] Nov, IMMUNIZATIONS No Known Immunizations SOCIAL HISTORY Never Assessed REASON FOR VISIT Controlled Med Refill PLAN OF CARE VITAL SIGNS MEDICATIONS Medication Instructions Dosage Frequency Start Date End Date Duration Status Alprazolam 0.5 MG Orally Twice a day as needed 1 tablet Jun, 28 days Active RESULTS No Results PROCEDURES No Known procedures INSTRUCTIONS MEDICATIONS ADMINISTERED No Known Medications MEDICAL (GENERAL) HISTORY Type Description Date Medical History Cardiovascular mijhqwgz-JZB-Yywyvjzh, non-obstructive per (01/2011) Dr. Mendoza Medical History Stress test 03/07/13-Dr. Kelly Dietrich normal Medical History Hypertension Medical History Asthma Medical History Gastrointestinal Disorder--IBS, GERD, Hx of fatty liver Medical History Hernia 1979 Medical History Cervical dysplasia 02/16-Pap [facility]-mild dysplasia Medical History Hyperlipidemia Medical History Rheumatoid [...] Hospitalization History Symptomatic Hypokalemia/Nause-[facility] 05/13/16 Hospitalization History Stroke 05/03/2017 Hospitalization History stroke 08/24/2017--09/01/2017
--- OUTSIDE RECORDS SUMMARY | 2019-05-22 07:44 | XMS REPORT ---
Author Author LORI SNOWDEN [facility] Address [address] [place] [address] Care Team Providers Care Group Leader [employer] Name Role Phone LORI SNOWDEN Unavailable PROBLEMS Type Condition ICD9-CM Code WWC94-NB Code Onset Dates Condition Status SNOMED Code Problem Hemiparesis of left nondominant side as late effect of cerebral infarction I69.354 Active 213209160 Problem Morbid (severe) obesity due to excess calories E66.01 Active 421593023 Problem Generalized anxiety disorder F41.1 Active 47194531 Problem ADHD (attention deficit hyperactivity disorder), combined type F90.2 Active 22445219 Problem Chronic pain syndrome G89.4 Active 439200498 Problem Rheumatoid arthritis M06.9 Active 70770827 Problem Gastroesophageal reflux disease with esophagitis K21.0 Active 734140325 Problem Asthma J45.909 Active 976426929 Problem Anxiety F41.9 Active 68940386 Problem Hypertension I10 Active 10627894 Problem Irritable bowel syndrome with diarrhea K58.0 Active 244043170 Problem Mild episode of recurrent major depressive disorder F33.0 Active 331170915 Problem Panic attacks F41.0 Active 981482423 Problem Hemiplegia affecting left nondominant side G81.94 Active Problem Chronic obstructive pulmonary disease J44.9 Active 30626943 Problem Hyperinsulinemia E16.1 Active 96447459 Problem Mixed hyperlipidemia E78.2 Active 388022060 Problem Arteriosclerotic coronary artery disease I25.10 Active 39939777 Problem Primary insomnia F51.01 Active 3277144 Problem Seasonal allergies J30.2 Active 916829986 Problem Unsteady gait R26.81 Active 26011759 Problem Paroxysmal atrial fibrillation I48.0 Active 307267487 Problem Obstructive sleep apnea G47.33 Active 82725356 Problem 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 Active 097933461 Problem Neuropathy G62.9 Active 183634682 Problem Other insomnia G47.09 Active 811980013 Problem Sleep apnea in adult G47.30 Active 12011982 Problem Rheumatoid arthritis involving multiple sites, unspecified rheumatoid factor presence M06.9 Active 048183439 Problem Cerebrovascular accident (CVA), unspecified mechanism I63.9 Active 114984671 Problem Dysthymic disorder F34.1 Active 15802348 ALLERGIES No Information ENCOUNTERS Encounter Location Date Diagnosis [facility] [address] [address] Aug, [facility] [id number] [place] [address] Aug, [facility] [id number] [place] [address] Jul, [facility] [id number] [place] [address] Jul, [facility] [id number] [place] [address] Jul, [facility] [id number] [place] [address] Jul, [facility] [id number] [place] [address] Jul, [facility] [id number] [place] [address] Jul, [facility] [employer] [address] [place] [id number] Jul, Hemiplegia affecting left nondominant side G81.94 ; Chronic obstructive pulmonary disease J44.9 and Weakness R53.1 [facility] [address] [place] [address] Jul, [facility] [employer] [address] [place] [id number] Jul, Weakness R53.1 ; Paroxysmal atrial fibrillation I48.0 and Unsteady gait R26.81 [facility] [address] [address] Jul, Tobacco abuse Z72.0 [facility] [address] [place] [id number] Jun, History of acute respiratory failure Z87.09 ; Weight gain R63.5 and Tobacco abuse Z72.0 [facility] [address] [address] Jun, [facility] [id number] [place] [address] May, Primary insomnia F51.01 [facility] [id number] [place] [address] May, Mild episode of recurrent major depressive disorder F33.0 [facility] [id number] [place] [address] May, [facility] [id number] [place] [address] May, Chronic obstructive pulmonary disease, unspecified COPD type J44.9 ; Primary insomnia F51.01 ; Fatigue, unspecified type R53.83 and Weight gain R63.5 [facility] [address] [place] [address] May, Thrush B37.0 [facility] [id number] [place] [address] May, Mild episode of recurrent major depressive disorder F33.0 and Generalized anxiety disorder F41.1 [facility] [address] [place] [address] May, Thrush B37.0 [facility] [address] [place] [address] Apr, Cough R05 [facility] [id number] [place] [address] Mar, Mild episode of recurrent major depressive disorder F33.0 [facility] [address] [place] [address] Mar, Mild episode of recurrent major depressive disorder F33.0 and Generalized anxiety disorder F41.1 [facility] [address] [place] [address] Mar, Seasonal allergies J30.2 [facility] [address] [address] Mar, Seasonal allergies J30.2 [facility] [id number] [place] [address] February, Generalized anxiety disorder F41.1 [facility] [address] [place] [address] February, Cough R05 and Seasonal allergies J30.2 [facility] [id number] [place] [address] February, Generalized anxiety disorder F41.1 and Mild episode of recurrent major depressive disorder F33.0 [facility] [id number] [place] [address] February, Other residential (current) drug therapy Z79.899 ; Anxiety F41.9 ; Panic attacks F41.0 and Irritable bowel syndrome with diarrhea K58.0 [facility] [address] [place] [address] February, [facility] [id number] [place] [address] Jan, Mixed hyperlipidemia E78.2 [facility] [id number] [place] [address] Jan, [facility] [id number] [place] [address] Jan, [facility] [id number] [place] [address] Jan, [facility] [id number] [place] [address] Jan, [facility] [id number] [place] [address] Dec, [facility] [id number] [place] [address] Dec, [facility] [id number] [place] [address] Dec, [facility] [address] [address] Nov, Dysthymic disorder F34.1 [facility] [address] [address] Oct, [facility] [address] [address] Oct, [facility] [id number] [place] [address] Oct, [facility] [id number] [place] [address] Oct, Diarrhea, unspecified type R19.7 and Dysuria R30.0 [facility] [id number] [place] [address] Oct, [facility] [id number] [place] [address] Sep, [facility] [id number] [place] [address] Sep, [facility] [id number] [place] [address] Sep, Anxiety F41.9 [facility] [address] [address] Sep, Cerebrovascular accident (CVA), unspecified mechanism I63.9 ; Mixed hyperlipidemia E78.2 ; Gastroesophageal reflux disease with esophagitis K21.0 and Anxiety F41.9 [facility] [id number] [place] [address] Sep, [facility] [address] [place] [address] Aug, Chronic obstructive pulmonary disease, unspecified J44.9 ; Asthma J45.909 ; Nausea R11.0 ; Dysthymic disorder F34.1 ; Cerebrovascular accident (CVA), unspecified mechanism I63.9 and Rheumatoid arthritis M06.9 [facility] [id number] [place] [address] Aug, Nausea R11.0 ; Encounter for immunization Z23 ; Sleep apnea in adult G47.30 ; Rheumatoid arthritis involving multiple sites, unspecified rheumatoid factor presence M06.9 ; Generalized anxiety disorder F41.1 ; Dysthymic disorder F34.1 and Asthma J45.909 [facility] [id number] [place] [address] Jul, [place] [id number] [place] [address] May, ADHD (attention deficit hyperactivity disorder), combined type F90.2 ; Generalized anxiety disorder F41.1 and Persistent depressive disorder F34.1 [place] [address] [place] [address] May, Cerebrovascular accident (CVA), unspecified mechanism I63.9 [facility] [id number] [place] [address] Apr, Mixed hyperlipidemia E78.2 and Cerebrovascular accident (CVA), unspecified mechanism I63.9 [facility] [id number] [place] [address] Apr, Generalized anxiety disorder F41.1 [place] [id number] [place] [address] Apr, Bronchitis J40 and Tobacco use Z72.0 [place] [id number] [place] [address] Apr, Mixed hyperlipidemia E78.2 [facility] [address] [place] [address] Apr, Other residential (current) drug therapy Z79.899 [facility] [id number] [place] [address] Apr, [facility] [id number] [place] [address] Apr, Generalized anxiety disorder F41.1 [facility] [id number] [place] [address] Apr, Obstructive sleep apnea G47.33 and Hyperinsulinemia E16.1 [facility] [id number] [place] [address] Apr, ADHD (attention deficit hyperactivity disorder), combined type F90.2 ; Generalized anxiety disorder F41.1 and Persistent depressive disorder F34.1 [facility] [id number] [place] [address] Mar, [facility] [id number] [place] [address] Mar, Generalized anxiety disorder F41.1 [facility] [id number] [place] [address] Mar, Tarsal tunnel syndrome of both lower extremities G57.53 [facility] [id number] [place] [address] February, [facility] [id number] [place] [address] February, [facility] [id number] [place] [address] February, Asthma J45.909 [facility] [id number] [place] [address] February, Generalized anxiety disorder F41.1 [facility] [id number] [place] [address] February, Hypoxemia R09.02 ; Hyperglycemia R73.9 ; Rheumatoid arthritis M06.9 and Generalized anxiety disorder F41.1 [facility] [id number] [place] [address] February, [facility] [address] [address] Jan, Chronic obstructive pulmonary disease, unspecified J44.9 [facility] [address] [address] Jan, Chronic pain syndrome G89.4 [facility] [address] [address] Jan, Hypoxemia R09.02 [facility] [address] [address] Jan, [facility] [address] [address] Jan, Chronic obstructive pulmonary disease, unspecified J44.9 ; Hypoxemia R09.02 ; Other insomnia G47.09 and Left anterior shoulder pain M25.512 [facility] [id number] [place] [address] Jan, Numbness in feet R20.0 and Neuropathy G62.9 [facility] [id number] [place] [address] Jan, [facility] [id number] [place] [address] Dec, Acute pain of left shoulder M25.512 [facility] [address] [address] Dec, Acute pain of left shoulder M25.512 [facility] [id number] [place] [address] Dec, Generalized anxiety disorder F41.1 [facility] [address] [place] [address] Dec, Generalized anxiety disorder F41.1 [facility] [id number] [place] [address] Nov, ADHD (attention deficit hyperactivity disorder), combined type F90.2 ; Generalized anxiety disorder F41.1 and Persistent depressive disorder F34.1 [facility] [id number] [place] [address] Nov, Acute pain of left shoulder M25.512 [facility] [id number] [place] [address] Nov, ADHD (attention deficit hyperactivity disorder), combined type F90.2 ; Generalized anxiety disorder F41.1 and Persistent depressive disorder F34.1 [facility] [id number] [place] [address] Nov, Chronic pain syndrome G89.4 [facility] [id number] [place] [address] Nov, Chronic pain syndrome G89.4 [facility] [id number] [place] [address] Nov, Acute pain of left shoulder M25.512 [facility] [address] [place] [address] Nov, Generalized anxiety disorder F41.1 [facility] [id number] [place] [address] Nov, Acute pain of left shoulder M25.512 [facility] [id number] [place] [address] Nov, ADHD (attention deficit hyperactivity disorder), combined type F90.2 ; Generalized anxiety disorder F41.1 and Persistent depressive disorder F34.1 [facility] [address] [place] [address] Nov, Acute pain of left shoulder M25.512 ; Generalized anxiety disorder F41.1 ; Chronic pain syndrome G89.4 ; Hyperinsulinemia E16.1 ; Pain of left foot M79.672 and Pain in right foot M79.671 [facility] [address] [place] [address] Oct, ADHD (attention deficit hyperactivity disorder), combined type F90.2 ; Generalized anxiety disorder F41.1 and Dysthymic disorder F34.1 [facility] [id number] [place] [address] Sep, [facility] [id number] [place] [address] Sep, [facility] [id number] [place] [address] Sep, Routine gynecological examination V72.31 ; Cervical cancer screening Z12.4 ; Breast cancer screening Z12.39 ; Colon cancer screening Z12.11 ; Hypokalemia E87.6 ; Herpes simplex type 1 infection B00.9 and Abscess of right axilla L02.411 [facility] [id number] [place] [address] Sep, [facility] [id number] [place] [address] Sep, ADHD (attention deficit hyperactivity disorder), combined type F90.2 ; Generalized anxiety disorder F41.1 and Dysthymic disorder F34.1 [facility] [address] [place] [address] Aug, [facility] [id number] [place] [address] Aug, [facility] [id number] [place] [address] Aug, Generalized anxiety disorder F41.1 [facility] [address] [place] [address] Aug, ADHD (attention deficit hyperactivity disorder), combined type F90.2 ; Generalized anxiety disorder F41.1 and Dysthymic disorder F34.1 [facility] [address] [address] Jul, Chronic pain syndrome G89.4 ; Hypertension I10 ; Hypokalemia E87.6 ; Asthma J45.909 and Nausea R11.0 [facility] [address] [address] Jul, [facility] [address] [address] Jul, Asthma J45.909 [facility] [address] [address] Jul, ADHD (attention deficit hyperactivity disorder), combined type F90.2 ; Generalized anxiety disorder F41.1 and Dysthymic disorder F34.1 [facility] [address] [address] Jul, [facility] [address] [address] Jul, Hypertension I10 ; Arteriosclerotic coronary artery disease I25.10 ; Mixed hyperlipidemia E78.2 ; Other residential (current) drug therapy Z79.899 and Hyperglycemia R73.9 [facility] [id number] [place] [address] 16 Jun, 2016 Hypokalemia E87.6 and Hyperglycemia R73.9 [facility] [id number] [place] [address] 14 Jun, [address] [address] 13 Jun, 2016 Abnormal kidney function N28.9 [facility] [id number] [place] [address] 09 Jun, 2016 [facility] [address] [address] Jun, ADHD (attention deficit hyperactivity disorder), combined type F90.2 ; Generalized anxiety disorder F41.1 and Dysthymic disorder F34.1 [facility] [address] [address] Jun, Generalized anxiety disorder F41.1 and Dysthymic disorder F34.1 [facility] [address] [address] Jun, Hypokalemia E87.6 [facility] [address] [address] May, Hypokalemia E87.6 ; Vertigo R42 and Hyperinsulinemia E16.1 [facility] [address] [address] May, [facility] [address] [address] May, Abnormal kidney function N28.9 ; Hyperinsulinemia E16.1 and Nausea R11.0 [facility] [address] [address] May, Hypokalemia E87.6 ; Nausea R11.0 ; Epigastric pain R10.13 ; Dehydration E86.0 ; Diaphoresis R61 and Right arm pain M79.601 [facility] [address] [address] May, [facility] [address] [address] May, Hypokalemia E87.6 [facility] [address] [address] May, Hypokalemia E87.6 [facility] [address] [address] Apr, [facility] [address] [address] Apr, ADHD (attention deficit hyperactivity disorder), combined type F90.2 ; Generalized anxiety disorder F41.1 and Dysthymic disorder F34.1 [facility] [id number] [place] [address] Apr, Right arm pain M79.601 and Hyperinsulinemia E16.1 [facility] [address] [address] Mar, [facility] [address] [address] Mar, [facility] [address] [address] Mar, Hyperinsulinemia E16.1 ; Hyperlipidemia, unspecified hyperlipidemia type E78.5 ; Central venous catheter in place Z78.9 ; Generalized anxiety disorder F41.1 and Urinary tract infection, site not specified N39.0 [facility] [address] [address] Mar, ADHD (attention deficit hyperactivity disorder), combined type F90.2 ; Generalized anxiety disorder F41.1 and Dysthymic disorder F34.1 [facility] [id number] [place] [address] February, ADHD (attention deficit hyperactivity disorder), combined type F90.2 ; Generalized anxiety disorder F41.1 and Dysthymic disorder F34.1 [facility] [id number] [place] [address] February, [facility] [id number] [place] [address] February, [address] [address] February, Hypertension I10 and Weight gain R63.5 [facility] [id number] [place] [address] February, Major depressive disorder, recurrent, moderate F33.1 and Generalized anxiety disorder F41.1 [facility] [address] [address] February, ADHD (attention deficit hyperactivity disorder), combined type F90.2 ; Generalized anxiety disorder F41.1 and Dysthymic disorder F34.1 [facility] [address] [place] [address] February, [facility] [id number] [place] [address] February, Asthma J45.909 ; Weight gain R63.5 ; Hypertension I10 ; Rheumatoid arthritis M06.9 and Chronic pain syndrome G89.4 [facility] [id number] [place] [address] Jan, ADHD (attention deficit hyperactivity disorder), combined type F90.2 ; Generalized anxiety disorder F41.1 and Dysthymic disorder F34.1 [facility] [id number] [place] [address] Dec, ADHD (attention deficit hyperactivity disorder), combined type F90.2 ; Generalized anxiety disorder F41.1 and Dysthymic disorder F34.1 [facility] [address] [place] [address] Dec, [facility] [address] [address] Nov, [facility] [id number] [place] [address] Nov, [facility] [address] [address] Nov, [facility] [id number] [place] [address] Nov, [facility] [address] [address] Oct, [facility] [address] [address] Oct, [facility] [address] [place] [address] Oct, [facility] [address] [address] Sep, [facility] [id number] [place] [address] Sep, [facility] [id number] [place] [address] Sep, Agoraphobia with panic disorder F40.01 ; Attention-deficit hyperactivity disorder, combined type F90.2 and Dysthymic disorder F34.1 [facility] [address] [address] Aug, [facility] [id number] [place] [id number] Aug, [facility] [id number] [address] Aug, [facility] [id number] [place] [id number] Aug, Dysthymic disorder F34.1 ; Generalized anxiety disorder F41.1 and ADHD (attention deficit hyperactivity disorder), combined type F90.2 [facility] [id number] [address] Aug, ADHD (attention deficit hyperactivity disorder), combined type F90.2 ; Generalized anxiety disorder F41.1 and Dysthymic disorder F34.1 [facility] [id number] [place] [id number] Jul, Urinary tract infection, site not specified N39.0 ; Hypotension, unspecified I95.9 and Breast cancer screening Z12.39 [facility] [id number] [place] [address] Jul, [facility] [address] [address] Jul, [facility] [id number] [place] [address] Jul, Urinary tract infection, site not specified N39.0 ; Nausea R11.0 ; Gastroenteritis K52.9 ; Renal failure N19 and Other hypotension I95.89 [facility] [id number] [place] [address] Jul, [facility] [id number] [place] [address] Jul, [facility] [id number] [place] [address] Jul, [facility] [id number] [place] [address] Jun, [facility] [id number] [place] [address] Jun, Major depression in partial remission 296.25 ; Generalized anxiety disorder 300.02 and ADHD, predominantly inattentive type 314.01 [facility] [id number] [place] [address] May, [facility] [id number] [place] [address] Apr, Major depressive disorder, recurrent episode, severe, without mention of psychotic behavior 296.33 ; Agoraphobia with panic disorder 300.21 and Generalized anxiety disorder 300.02 [facility] [id number] [place] [address] Apr, ADHD (attention deficit hyperactivity disorder), combined type 314.01 ; Generalized anxiety disorder 300.02 and Dysthymic disorder 300.4 [facility] [address] [address] Apr, CAD (coronary artery disease) 414.00 ; HTN (hypertension) 401.9 and Tobacco use 305.1 [place] [address] [address] Apr, [facility] [id number] [place] [address] Mar, ADHD (attention deficit hyperactivity disorder), combined type 314.01 ; Generalized anxiety disorder 300.02 ; Dysthymic disorder 300.4 ; No condition on [place] II V71.09 ; Rheumatoid arthritis 714.0 ; Incontinence 788.30 ; Irritable bowel syndrome 564.1 ; Osteoporosis 733.00 and Chronic pain 338.29 [facility] [id number] [place] [address] Mar, Agoraphobia with panic disorder 300.21 and Major depressive disorder, recurrent episode, moderate 296.32 [facility] [id number] [place] [address] Mar, [facility] [id number] [place] [address] February, [facility] [id number] [place] [address] February, Agoraphobia with panic disorder 300.21 and Major depressive disorder, recurrent episode, moderate 296.32 [facility] [address] [address] February, [facility] [id number] [address] Jan, [facility] [id number] [address] Jan, [facility] [id number] [place] [address] Dec, [facility] [id number] [place] [address] Dec, [facility] [id number] [address] Dec, [facility] [place] [facility] [address] [id number] [place] [address] Dec, [facility] [place] [facility] [address] [id number] [place] [address] Dec, [facility] [place] [facility] [address] [id number] [place] [address] Dec, [facility] [place] [facility] [address] [id number] [place] [address] Nov, 2014 [facility] [place] [facility] [address] [id number] [place] [address] Nov, [facility] [place] [facility] [address] [id number] [place] [address] Nov, [facility] [place] [facility] [address] [id number] [place] [address] Nov, [facility] [place] [facility] [address] [id number] [place] [address] Nov, [facility] [place] [facility] [address] [id number] [place] [address] Nov, [facility] [place] [facility] [address] [id number] [place] [address] Nov, [facility] [place] [facility] [address] [id number] [place] [address] Nov, [facility] [place] [facility] [address] [id number] [place] [address] Oct, [facility] [place] [facility] [address] [id number] [place] [address] Oct, [facility] [place] [facility] [address] [id number] [place] [address] Oct, [facility] [place] [facility] [address] [id number] [place] [address] Oct, [facility] [place] [facility] [address] [id number] [address] Oct, [facility] [place] [facility] [address] [id number] [place] [address] Oct, [facility] [place] [facility] [address] [id number] [place] [address] Sep, [facility] [place] [facility] [address] [id number] [place] [address] Sep, [facility] [place] [facility] [address] [id number] [place] [address] Sep, [facility] [place] [facility] [address] [id number] [place] [address] Sep, [facility] [place] [facility] [address] [id number] [place] [address] Sep, [facility] [place] [facility] [address] [id number] [place] [address] Sep, [facility] [place] [facility] [address] [id number] [place] [address] Sep, [facility] [place] [facility] [address] [id number] [place] [address] Aug, [facility] [place] [facility] [address] [facility] [id number] [place] [address] Aug, [facility] [place] [facility] [address] [id number] [place] [address] Aug, [facility] [place] [facility] [address] [id number] [address] Aug, [facility] [place] [facility] [address] [id number] [place] [address] Aug, [facility] [place] [facility] [address] [id number] [address] Aug, [facility] [place] [facility] [address] [id number] [address] Jul, [facility] [place] [facility] [address] [id number] [place] [address] Jul, [facility] [place] [facility] [address] [id number] [place] [address] Jul, [facility] [place] [facility] [address] [id number] [place] [address] Jul, [facility] [place] [facility] [address] [id number] [place] [address] Jul, [facility] [place] [facility] [address] [id number] [place] [address] Jul, [facility] [place] [facility] [address] [id number] [place] [address] Jun, [facility] [place] [facility] [address] [id number] [place] [address] Jun, [facility] [place] [facility] [address] [id number] [place] [address] May, [facility] [place] [facility] [address] [id number] [place] [address] May, [facility] [place] [facility] [address] [id number] [place] [address] Apr, [facility] [place] [facility] [address] [id number] [place] [address] Apr, [facility] [place] [facility] [address] [id number] [place] [address] Apr, [facility] [place] [facility] [address] [id number] [place] [address] Apr, [facility] [place] [facility] [address] [id number] [place] [address] Mar, [facility] [place] [facility] [address] [id number] [place] [address] Mar, [facility] [place] [facility] [address] [id number] [place] [address] Mar, [facility] [place] [facility] [address] [id number] [place] [address] Mar, [facility] [place] [facility] [address] [id number] [place] [address] February, [facility] [place] [facility] [address] [id number] [place] [address] February, [facility] [place] [facility] [address] [id number] [place] [address] February, [facility] [place] [facility] [address] [id number] [place] [address] February, [facility] [place] [facility] [address] [id number] [place] [address] February, [facility] [place] [facility] [address] [id number] [place] [address] February, [facility] [place] [facility] [address] [id number] [place] [address] Jan, [facility] [place] [facility] [address] [id number] [place] [address] Jan, [facility] [place] [facility] [address] [id number] [place] [address] Dec, [facility] [place] [facility] [address] [id number] [place] [address] Dec, [facility] [place] [facility] [address] [id number] [address] Nov, [facility] [place] [facility] [address] [id number] [place] [address] Nov, [facility] [place] [facility] [address] [id number] [place] [address] Oct, [facility] [place] [facility] [address] [id number] [place] [address] Oct, [facility] [place] [facility] [address] [id number] [place] [address] Oct, [facility] [address] [id number] [place] [address] Oct, [facility] [address] [id number] [place] [address] Sep, [facility] [address] [id number] [place] [address] Sep, [facility] [address] [id number] [place] [address] Sep, [facility] [address] [id number] [place] [address] Sep, [facility] [address] [id number] [place] [address] Sep, [facility] [address] [id number] [place] [address] Sep, [facility] [address] [id number] [place] [address] Sep, [facility] [address] [id number] [place] [address] Sep, [facility] [address] [facility] [id number] [place] [address] Aug, [facility] [address] [id number] [place] [address] Aug, [facility] [address] [id number] [place] [address] 08 Aug, 2013 [facility] [address] [id number] [place] [address] Aug, [facility] [address] [facility] [id number] [place] [address] 07 Aug, 2013 [facility] [address] [id number] [place] [address] Aug, [facility] [address] [id number] [place] [address] Aug, [facility] [place] [facility] [address] [id number] [place] [address] Aug, [facility] [place] [facility] [address] [id number] [place] [address] Aug, [facility] [place] [facility] [address] [id number] [place] [address] Jul, [facility] [place] [facility] [address] [id number] [place] [address] Jun, [facility] [place] [facility] [address] [id number] [place] [address] May, [facility] [place] [facility] [address] [id number] [place] [address] May, [facility] [place] [facility] [address] [id number] [place] [address] May, [facility] [place] [facility] [address] [id number] [place] [address] Apr, [facility] [place] [facility] [address] [id number] [address] Mar, [facility] [place] [facility] [address] [id number] [place] [address] February, [facility] [place] [facility] [address] [id number] [address] Oct, [facility] [place] [facility] [address] [id number] [place] [address] Oct, [facility] [place] [facility] [address] [id number] [address] Oct, [facility] [place] [facility] [address] [id number] [address] Oct, [facility] [place] [facility] [address] [id number] [address] Oct, [facility] [place] [facility] [address] [id number] [place] [address] Oct, [facility] [place] [facility] [address] [id number] [place] [address] Sep, [facility] [place] [facility] [address] [id number] [place] [address] Sep, [facility] [place] [facility] [address] [id number] [place] [address] Aug, [facility] [place] [facility] [address] [id number] [place] [address] Aug, [facility] [place] [facility] [address] [id number] [place] [address] Jul, [facility] [place] [facility] [address] [facility] [id number] [place] [address] Jul, [facility] [place] [facility] [address] [id number] [place] [address] Jul, [facility] [place] [facility] [address] [facility] [id number] [place] [address] Jul, [facility] [place] [facility] [address] [facility] [id number] [place] [address] Jul, [facility] [place] [facility] [address] [id number] [address] Jul, [facility] [place] [facility] [address] [id number] [address] Jul, [facility] [place] [facility] [address] [id number] [place] [address] Jul, [facility] [place] [facility] [address] [facility] [id number] [place] [address] 16 Jun, 2012 [facility] [place] [facility] [address] [facility] [id number] [place] [address] 03 Jun, 2012 [facility] [place] [facility] [address] [id number] [place] [address] May, [facility] [place] [facility] [address] [id number] [place] [address] Apr, [facility] [place] [facility] [address] [id number] [place] [address] Mar, [facility] [place] [facility] [address] [id number] [place] [address] Mar, [facility] [place] [facility] [address] [id number] [place] [address] Mar, [facility] [place] [facility] [address] [id number] [place] [address] Mar, [facility] [place] [facility] [address] [id number] [place] [address] Jan, [facility] [place] [facility] [address] [id number] [place] [address] Nov, [facility] [place] [facility] [address] [id number] [place] [address] Nov, [facility] [place] [facility] [address] [id number] [place] [address] Nov, [facility] [place] [facility] [address] [id number] [place] [address] Oct, [facility] [place] [facility] [address] [id number] [place] [address] Sep, [facility] [place] [facility] [address] [id number] [place] [address] Sep, [facility] [place] [facility] [address] [id number] [place] [address] Aug, [facility] [place] [facility] [address] [id number] [place] [address] Aug, [facility] [place] [facility] [address] [id number] [place] [address] Aug, [facility] [id number] [address] Aug, [facility] [address] [address] Jul, [facility] [address] [address] May, [facility] [address] [address] Jan, [facility] [address] [address] Nov, [facility] [id number] [place] [address] Apr, [facility] [address] [address] Dec, [facility] [address] [address] Nov, IMMUNIZATIONS No Known Immunizations SOCIAL HISTORY Never Assessed REASON FOR VISIT Home Health Continuation Orders PLAN OF CARE VITAL SIGNS MEDICATIONS Unknown Medications RESULTS No Results PROCEDURES No Known procedures INSTRUCTIONS MEDICATIONS ADMINISTERED No Known Medications MEDICAL (GENERAL) HISTORY Type Description Date Medical History Cardiovascular eoavtpdn-UIA-Dvxpwjom, non-obstructive per (01/2011) Dr. Mendoza Medical History Stress test 03/07/13-Dr. Kelly Dietrich normal Medical History Hypertension Medical History Asthma Medical History Gastrointestinal Disorder--IBS, GERD, Hx of fatty liver Medical History Hernia 1979 Medical History Cervical dysplasia 02/16-Pap LGSIL/Katy-mild dysplasia Medical History Hyperlipidemia Medical History Rheumatoid [...] Kidney injury 07/10/15-07/11/2015 Hospitalization History Symptomatic Hypokalemia/Nause-Via [facility] 05/13/16 Hospitalization History Stroke 05/03/2017 Hospitalization History stroke 08/24/2017--09/01/2017
--- OUTSIDE RECORDS SUMMARY | 2019-05-22 07:45 | XMS REPORT ---
Author Author LORI SNOWDEN [facility] Address [address] [place] [address] Care Team Providers Care [employer] Mill [employer]er Name Role Phone LORI SNOWDEN Unavailable PROBLEMS Type Condition ICD9-CM Code CEU15-KK Code Onset Dates Condition Status SNOMED Code Problem ADHD (attention deficit hyperactivity disorder), combined type F90.2 Active 69221580 Problem Generalized anxiety disorder F41.1 Active 91437089 Problem Asthma J45.909 Active 703591608 Problem Hypertension I10 Active 50451984 Problem Chronic pain syndrome G89.4 Active 167481956 Problem Rheumatoid arthritis involving multiple sites, unspecified rheumatoid factor presence M06.9 Active 730214117 Problem Rheumatoid arthritis M06.9 Active 01664536 Problem Gastroesophageal reflux disease with esophagitis K21.0 Active 935230821 Problem Weight gain R63.5 Active 2073059 Problem Anxiety F41.9 Active 74265017 Problem Panic attacks F41.0 Active 742925734 Problem Irritable bowel syndrome with diarrhea K58.0 Active 769319412 Problem Paroxysmal atrial fibrillation I48.0 Active 092375726 Problem Unsteady gait R26.81 Active 78807254 Problem Hyperinsulinemia E16.1 Active 98924714 Problem Arteriosclerotic coronary artery disease I25.10 Active 95652876 Problem Mixed hyperlipidemia E78.2 Active 435942721 Problem Seasonal allergies J30.2 Active 998606048 Problem Mild episode of recurrent major depressive disorder F33.0 Active 752346407 Problem Chronic obstructive pulmonary disease, unspecified COPD type J44.9 Active 85393962 Problem Primary insomnia F51.01 Active 7192162 Problem Chronic obstructive pulmonary disease, unspecified J44.9 Active [id number] Problem Obstructive sleep apnea G47.33 Active 60359362 Problem Neuropathy G62.9 Active 068611410 Problem Other insomnia G47.09 Active 565613284 Problem Dysthymic disorder F34.1 Active 11388935 Problem Sleep apnea in adult G47.30 Active 40320788 Problem Other shelter (current) drug therapy Z79.899 Active 916855460 Problem Cerebrovascular accident (CVA), unspecified mechanism I63.9 Active 492754523 ALLERGIES No Information ENCOUNTERS Encounter Location Date Diagnosis [facility] [id number] [place] [address] Aug, [facility] [id number] [place] [address] Jul, [facility] [id number] [place] [address] Jul, [facility] [id number] [place] [address] Jul, [facility] [id number] [place] [address] Jul, [facility] [address] [place] [id number] Jul, [facility] [id number] [place] [address] Jul, [facility] [address] [place] [id number] Jul, Weakness R53.1 ; Paroxysmal atrial fibrillation I48.0 and Unsteady gait R26.81 [facility] [id number] [place] [address] Jul, Tobacco abuse Z72.0 [facility] [address] [place] [id number] Jun, History of acute respiratory failure Z87.09 ; Weight gain R63.5 and Tobacco abuse Z72.0 [facility] [id number] [place] [address] Jun, [facility] [id number] [place] [address] May, Primary insomnia F51.01 [facility] [id number] [place] [address] May, Mild episode of recurrent major depressive disorder F33.0 [facility] [id number] [place] [address] May, [facility] [id number] [place] [address] May, Chronic obstructive pulmonary disease, unspecified COPD type J44.9 ; Primary insomnia F51.01 ; Fatigue, unspecified type R53.83 and Weight gain R63.5 [facility] [address] [place] [address] May, Thrush B37.0 [facility] [id number] [place] [address] May, Mild episode of recurrent major depressive disorder F33.0 and Generalized anxiety disorder F41.1 [facility] [id number] [place] [address] May, Thrush B37.0 [facility] [id number] [place] [address] Apr, Cough R05 [facility] [id number] [place] [address] Mar, Mild episode of recurrent major depressive disorder F33.0 [facility] [id number] [place] [address] Mar, Mild episode of recurrent major depressive disorder F33.0 and Generalized anxiety disorder F41.1 [facility] [address] [place] [address] Mar, Seasonal allergies J30.2 [facility] [id number] [place] [address] Mar, Seasonal allergies J30.2 [facility] [id number] [place] [address] February, Generalized anxiety disorder F41.1 [facility] [id number] [place] [address] February, Cough R05 and Seasonal allergies J30.2 [facility] [id number] [place] [address] February, Generalized anxiety disorder F41.1 and Mild episode of recurrent major depressive disorder F33.0 [facility] [id number] [place] [address] February, Other shelter (current) drug therapy Z79.899 ; Anxiety F41.9 ; Panic attacks F41.0 and Irritable bowel syndrome with diarrhea K58.0 [facility] [id number] [place] [address] February, [facility] [id number] [place] [address] Jan, Mixed hyperlipidemia E78.2 [facility] [id number] [place] [address] Jan, [facility] [id number] [place] [address] Jan, [facility] [id number] [place] [address] Jan, [facility] [id number] [place] [address] Jan, [facility] [id number] [place] [address] Dec, [facility] [id number] [place] [address] Dec, [facility] [id number] [place] [address] Dec, [facility] [address] [place] [address] Nov, Dysthymic disorder F34.1 [facility] [id number] [place] [address] Oct, [facility] [id number] [place] [address] Oct, [facility] [id number] [place] [address] Oct, [facility] [address] [address] Oct, Diarrhea, unspecified type R19.7 and Dysuria R30.0 [facility] [address] [address] Oct, [facility] [address] [address] Sep, [facility] [address] [address] Sep, [facility] [address] [address] Sep, Anxiety F41.[address] [address] Sep, Cerebrovascular accident (CVA), unspecified mechanism I63.9 ; Mixed hyperlipidemia E78.2 ; Gastroesophageal reflux disease with esophagitis K21.0 and Anxiety F41.9 [facility] [id number] [place] [address] Sep, [facility] [id number] [place] [address] Aug, Chronic obstructive pulmonary disease, unspecified J44.9 ; Asthma J45.909 ; Nausea R11.0 ; Dysthymic disorder F34.1 ; Cerebrovascular accident (CVA), unspecified mechanism I63.9 and Rheumatoid arthritis M06.9 [facility] [id number] [place] [address] Aug, Nausea R11.0 ; Encounter for immunization Z23 ; Sleep apnea in adult G47.30 ; Rheumatoid arthritis involving multiple sites, unspecified rheumatoid factor presence M06.9 ; Generalized anxiety disorder F41.1 ; Dysthymic disorder F34.1 and Asthma J45.909 [facility] [id number] [place] [address] Jul, [facility] [address] [address] May, ADHD (attention deficit hyperactivity disorder), combined type F90.2 ; Generalized anxiety disorder F41.1 and Persistent depressive disorder F34.1 [facility] [address] [address] May, Cerebrovascular accident (CVA), unspecified mechanism I63.9 [facility] [address] [address] Apr, Mixed hyperlipidemia E78.2 and Cerebrovascular accident (CVA), unspecified mechanism I63.9 [facility] [id number] [place] [address] Apr, Generalized anxiety disorder F41.1 [facility] [address] [address] Apr, Bronchitis J40 and Tobacco use Z72.0 [facility] [address] [address] Apr, Mixed hyperlipidemia E78.2 [facility] [address] [address] Apr, Other shelter (current) drug therapy Z79.899 [facility] [address] [address] Apr, [facility] [address] [address] Apr, Generalized anxiety disorder F41.1 [facility] [address] [address] Apr, Obstructive sleep apnea G47.33 and Hyperinsulinemia E16.1 [facility] [id number] [place] [address] Apr, ADHD (attention deficit hyperactivity disorder), combined type F90.2 ; Generalized anxiety disorder F41.1 and Persistent depressive disorder F34.1 [facility] [id number] [place] [address] Mar, [facility] [address] [address] Mar, Generalized anxiety disorder F41.1 [facility] [address] [address] Mar, Tarsal tunnel syndrome of both lower extremities G57.53 [facility] [address] [address] February, [facility] [address] [address] February, [facility] [id number] [place] [address] February, Asthma J45.909 [facility] [id number] [place] [address] February, Generalized anxiety disorder F41.1 [facility] [id number] [place] [address] February, Hypoxemia R09.02 ; Hyperglycemia R73.9 ; Rheumatoid arthritis M06.9 and Generalized anxiety disorder F41.1 [facility] [id number] [place] [address] February, [facility] [id number] [place] [address] Jan, Chronic obstructive pulmonary disease, unspecified J44.9 [facility] [id number] [place] [address] Jan, Chronic pain syndrome G89.4 [facility] [id number] [place] [address] Jan, Hypoxemia R09.02 [facility] [id number] [place] [address] Jan, [facility] [id number] [place] [address] Jan, Chronic obstructive pulmonary disease, unspecified J44.9 ; Hypoxemia R09.02 ; Other insomnia G47.09 and Left anterior shoulder pain M25.512 [facility] [address] [address] Jan, Numbness in feet R20.0 and Neuropathy G62.9 [facility] [id number] [place] [address] Jan, [facility] [address] [address] Dec, Acute pain of left shoulder M25.512 [facility] [id number] [place] [address] Dec, Acute pain of left shoulder M25.512 [facility] [id number] [place] [address] Dec, Generalized anxiety disorder F41.1 [facility] [address] [address] Dec, Generalized anxiety disorder F41.1 [facility] [id number] [place] [address] Nov, ADHD (attention deficit hyperactivity disorder), combined type F90.2 ; Generalized anxiety disorder F41.1 and Persistent depressive disorder F34.1 [facility] [id number] [place] [address] Nov, Acute pain of left shoulder M25.512 [facility] [address] [place] [address] Nov, ADHD (attention deficit hyperactivity disorder), combined type F90.2 ; Generalized anxiety disorder F41.1 and Persistent depressive disorder F34.1 [facility] [address] [place] [address] Nov, Chronic pain syndrome G89.4 [facility] [id number] [place] [address] Nov, Chronic pain syndrome G89.4 [facility] [id number] [place] [address] Nov, Acute pain of left shoulder M25.512 [facility] [id number] [place] [address] Nov, Generalized anxiety disorder F41.1 [facility] [id number] [place] [address] Nov, Acute pain of left shoulder M25.512 [facility] [id number] [place] [address] Nov, ADHD (attention deficit hyperactivity disorder), combined type F90.2 ; Generalized anxiety disorder F41.1 and Persistent depressive disorder F34.1 [facility] [address] [place] [address] Nov, Acute pain of left shoulder M25.512 ; Generalized anxiety disorder F41.1 ; Chronic pain syndrome G89.4 ; Hyperinsulinemia E16.1 ; Pain of left foot M79.672 and Pain in right foot M79.671 [facility] [id number] [place] [address] Oct, ADHD (attention deficit hyperactivity disorder), combined type F90.2 ; Generalized anxiety disorder F41.1 and Dysthymic disorder F34.1 [facility] [address] [place] [address] Sep, [facility] [id number] [place] [address] Sep, [facility] [address] [address] Sep, Routine gynecological examination V72.31 ; Cervical cancer screening Z12.4 ; Breast cancer screening Z12.39 ; Colon cancer screening Z12.11 ; Hypokalemia E87.6 ; Herpes simplex type 1 infection B00.9 and Abscess of right axilla L02.411 [facility] [id number] [place] [address] Sep, [address] [address] Sep, ADHD (attention deficit hyperactivity disorder), combined type F90.2 ; Generalized anxiety disorder F41.1 and Dysthymic disorder F34.1 [place] [id number] [place] [address] Aug, [facility] [id number] [place] [address] Aug, [address] [address] Aug, Generalized anxiety disorder F41.1 [place] [id number] [place] [address] Aug, ADHD (attention deficit hyperactivity disorder), combined type F90.2 ; Generalized anxiety disorder F41.1 and Dysthymic disorder F34.1 [place] [id number] [place] [address] Jul, Chronic pain syndrome G89.4 ; Hypertension I10 ; Hypokalemia E87.6 ; Asthma J45.909 and Nausea R11.0 [place] [id number] [place] [address] Jul, [facility] [address] [address] Jul, Asthma J45.909 [facility] [address] [address] Jul, ADHD (attention deficit hyperactivity disorder), combined type F90.2 ; Generalized anxiety disorder F41.1 and Dysthymic disorder F34.1 [facility] [address] [address] Jul, [facility] [address] [address] Jul, Hypertension I10 ; Arteriosclerotic coronary artery disease I25.10 ; Mixed hyperlipidemia E78.2 ; Other long term care social worker (current) drug therapy Z79.899 and Hyperglycemia R73.9 [facility] [address] [address] 16 Jun, 2016 Hypokalemia E87.6 and Hyperglycemia R73.9 [facility] [address] [address] 14 Jun, 2016 [facility] [address] [address] 13 Jun, 2016 Abnormal kidney function N28.9 [facility] [address] [address] 09 Jun, 2016 [facility] [id number] [place] [address] Jun, ADHD (attention deficit hyperactivity disorder), combined type F90.2 ; Generalized anxiety disorder F41.1 and Dysthymic disorder F34.1 [facility] [address] [address] Jun, Generalized anxiety disorder F41.1 and Dysthymic disorder F34.1 [facility] [address] [address] 02 Jun, 2016 Hypokalemia E87.6 [facility] [place] [address] [place] [address] May, Hypokalemia E87.6 ; Vertigo R42 and Hyperinsulinemia E16.1 [facility] [address] [address] May, [facility] [address] [address] May, Abnormal kidney function N28.9 ; Hyperinsulinemia E16.1 and Nausea R11.0 [facility] [address] [address] May, Hypokalemia E87.6 ; Nausea R11.0 ; Epigastric pain R10.13 ; Dehydration E86.0 ; Diaphoresis R61 and Right arm pain M79.601 [facility] [address] [address] May, [facility] [address] [address] May, Hypokalemia E87.6 [facility] [address] [address] May, Hypokalemia E87.6 [facility] [address] [address] Apr, [facility] [address] [address] Apr, ADHD (attention deficit hyperactivity disorder), combined type F90.2 ; Generalized anxiety disorder F41.1 and Dysthymic disorder F34.1 [facility] [address] [address] Apr, Right arm pain M79.601 and Hyperinsulinemia E16.1 [facility] [address] [address] Mar, [facility] [address] [address] Mar, [place] [address] [address] Mar, Hyperinsulinemia E16.1 ; Hyperlipidemia, unspecified hyperlipidemia type E78.5 ; Central venous catheter in place Z78.9 ; Generalized anxiety disorder F41.1 and Urinary tract infection, site not specified N39.0 [facility] [id number] [place] [address] Mar, ADHD (attention deficit hyperactivity disorder), combined type F90.2 ; Generalized anxiety disorder F41.1 and Dysthymic disorder F34.1 [facility] [id number] [place] [address] February, ADHD (attention deficit hyperactivity disorder), combined type F90.2 ; Generalized anxiety disorder F41.1 and Dysthymic disorder F34.1 [facility] [id number] [place] [address] February, [facility] [id number] [place] [address] February, [facility] [id number] [place] [address] February, Hypertension I10 and Weight gain R63.5 [facility] [id number] [place] [address] February, Major depressive disorder, recurrent, moderate F33.1 and Generalized anxiety disorder F41.1 [facility] [place] [address] [place] [address] February, ADHD (attention deficit hyperactivity disorder), combined type F90.2 ; Generalized anxiety disorder F41.1 and Dysthymic disorder F34.1 [facility] [place] [address] [place] [address] February, [facility] [id number] [place] [address] February, Asthma J45.909 ; Weight gain R63.5 ; Hypertension I10 ; Rheumatoid arthritis M06.9 and Chronic pain syndrome G89.4 [facility] [id number] [place] [address] Jan, ADHD (attention deficit hyperactivity disorder), combined type F90.2 ; Generalized anxiety disorder F41.1 and Dysthymic disorder F34.1 [facility] [id number] [place] [address] Dec, ADHD (attention deficit hyperactivity disorder), combined type F90.2 ; Generalized anxiety disorder F41.1 and Dysthymic disorder F34.1 [facility] [id number] [place] [address] Dec, [facility] [id number] [place] [address] Nov, [facility] [id number] [place] [address] Nov, [facility] [id number] [place] [address] Nov, [facility] [id number] [place] [address] Nov, [facility] [id number] [place] [address] Oct, [facility] [id number] [place] [address] Oct, [facility] [id number] [place] [phone] Oct, [facility] [id number] [place] [phone] Sep, [facility] [id number] [place] [phone] Sep, [facility] [id number] [place] [phone] Sep, Agoraphobia with panic disorder F40.01 ; Attention-deficit hyperactivity disorder, combined type F90.2 and Dysthymic disorder F34.1 [facility] [id number] [address] Aug, [facility] [id number] [address] Aug, [facility] [id number] [place] [phone] Aug, [facility] [id number] [place] [id number] Aug, Dysthymic disorder F34.1 ; Generalized anxiety disorder F41.1 and ADHD (attention deficit hyperactivity disorder), combined type F90.2 [facility] [id number] [place] [phone] Aug, ADHD (attention deficit hyperactivity disorder), combined type F90.2 ; Generalized anxiety disorder F41.1 and Dysthymic disorder F34.1 [facility] [id number] [place] [id number] Jul, Urinary tract infection, site not specified N39.0 ; Hypotension, unspecified I95.9 and Breast cancer screening Z12.39 [facility] [id number] [address] Jul, [facility] [id number] [place] [id number] Jul, [facility] [id number] [place] [id number] Jul, Urinary tract infection, site not specified N39.0 ; Nausea R11.0 ; Gastroenteritis K52.9 ; Renal failure N19 and Other hypotension I95.89 [facility] [id number] [place] [address] Jul, [facility] [address] [id number] [address] Jul, [facility] [id number] [place] [address] Jul, [facility] [id number] [place] [address] Jun, [facility] [id number] [place] [address] Jun, Major depression in partial remission 296.25 ; Generalized anxiety disorder 300.02 and ADHD, predominantly inattentive type 314.01 [facility] [id number] [place] [address] May, [facility] [id number] [place] [address] Apr, Major depressive disorder, recurrent episode, severe, without mention of psychotic behavior 296.33 ; Agoraphobia with panic disorder 300.21 and Generalized anxiety disorder 300.02 [facility] [address] [id number] [address] Apr, ADHD (attention deficit hyperactivity disorder), combined type 314.01 ; Generalized anxiety disorder 300.02 and Dysthymic disorder 300.4 [facility] [id number] [place] [address] Apr, CAD (coronary artery disease) 414.00 ; HTN (hypertension) 401.9 and Tobacco use 305.1 [facility] [id number] [place] [address] Apr, [facility] [id number] [place] [address] Mar, ADHD (attention deficit hyperactivity disorder), combined type 314.01 ; Generalized anxiety disorder 300.02 ; Dysthymic disorder 300.4 ; No condition on [place] II V71.09 ; Rheumatoid arthritis 714.0 ; Incontinence 788.30 ; Irritable bowel syndrome 564.1 ; Osteoporosis 733.00 and Chronic pain 338.29 [facility] [id number] [address] Mar, Agoraphobia with panic disorder 300.21 and Major depressive disorder, recurrent episode, moderate 296.32 [facility] [address] [address] Mar, [facility] [address] [address] February, [facility] [id number] [place] [address] February, Agoraphobia with panic disorder 300.21 and Major depressive disorder, recurrent episode, moderate 296.32 [facility] [id number] [place] [address] February, [facility] [address] [address] Jan, [facility] [id number] [place] [address] Jan, [facility] [address] [address] Dec, [facility] [address] [address] Dec, [facility] [address] [address] Dec, [facility] [address] [address] Dec, [facility] [address] [address] Dec, [facility] [id number] [place] [address] Dec, [facility] [address] [address] Nov, [facility] [id number] [place] [address] Nov, 2014 [facility] [place] [facility] [address] [id number] [place] [address] Nov, 2014 [facility] [place] [facility] [address] [id number] [place] [address] Nov, 2014 [facility] [place] [facility] [address] [id number] [place] [address] Nov, 2014 [facility] [place] [facility] [address] [id number] [place] [address] Nov, 2014 [facility] [place] [facility] [address] [id number] [place] [address] Nov, 2014 [facility] [place] [facility] [address] [id number] [place] [address] Nov, [facility] [place] [facility] [address] [id number] [place] [address] Oct, [facility] [place] [facility] [address] [id number] [place] [address] Oct, [facility] [place] [facility] [address] [id number] [place] [address] Oct, [facility] [place] [facility] [address] [facility] [id number] [place] [address] Oct, [facility] [place] [facility] [address] [id number] [place] [address] Oct, [facility] [place] [facility] [address] [id number] [place] [address] Oct, [facility] [place] [facility] [address] [id number] [place] [address] Sep, [facility] [place] [facility] [address] [id number] [place] [address] Sep, [facility] [place] [facility] [address] [id number] [place] [address] Sep, [facility] [place] [facility] [address] [id number] [place] [address] 16 Sep, 2014 [facility] [place] [facility] [address] [id number] [place] [address] Sep, [facility] [place] [facility] [address] [id number] [place] [address] Sep, [facility] [place] [facility] [address] [id number] [place] [address] Sep, [facility] [place] [facility] [address] [id number] [place] [address] Aug, [facility] [place] [facility] [address] [id number] [place] [address] Aug, [facility] [place] [facility] [address] [id number] [place] [address] Aug, [facility] [place] [facility] [address] [id number] [place] [address] Aug, [facility] [place] [facility] [address] [id number] [place] [address] Aug, [facility] [place] [facility] [address] [id number] [place] [address] Aug, [facility] [place] [facility] [address] [id number] [place] [address] Jul, [facility] [place] [facility] [address] [id number] [place] [address] 17 Jul, 2014 [facility] [place] [facility] [address] [id number] [place] [address] Jul, [facility] [place] [facility] [address] [id number] [place] [address] Jul, [facility] [place] [facility] [address] [id number] [place] [address] Jul, [facility] [place] [facility] [address] [id number] [place] [address] Jul, [facility] [place] [facility] [address] [id number] [place] [address] Jun, [facility] [place] [facility] [address] [id number] [place] [address] Jun, [facility] [place] [facility] [address] [id number] [place] [address] May, [facility] [place] [facility] [address] [id number] [place] [address] May, [facility] [place] [facility] [address] [id number] [place] [address] Apr, [facility] [place] [facility] [address] [id number] [place] [address] Apr, [facility] [place] [facility] [address] [id number] [place] [address] Apr, [facility] [place] [facility] [address] [id number] [place] [address] Apr, [facility] [place] [facility] [address] [id number] [place] [address] Mar, [facility] [place] [facility] [address] [id number] [place] [address] Mar, [facility] [place] [facility] [address] [id number] [place] [address] Mar, [facility] [place] [facility] [address] [id number] [place] [address] Mar, [facility] [place] [facility] [address] [id number] [place] [address] February, [facility] [place] [facility] [address] [id number] [place] [address] February, [facility] [place] [facility] [address] [id number] [place] [address] February, [facility] [place] [facility] [address] [id number] [place] [address] February, [facility] [address] [id number] [place] [address] February, [facility] [place] [facility] [address] [id number] [place] [address] February, [facility] [place] [facility] [address] [id number] [place] [address] Jan, [facility] [place] [facility] [address] [id number] [place] [address] Jan, [facility] [place] [facility] [address] [id number] [place] [address] Dec, [facility] [place] [facility] [address] [id number] [place] [address] Dec, [facility] [place] [facility] [address] [id number] [place] [address] Nov, [facility] [place] [facility] [address] [id number] [place] [address] Nov, [facility] [place] [facility] [address] [id number] [place] [address] Oct, [facility] [place] [facility] [address] [id number] [place] [address] Oct, [facility] [place] [facility] [address] [id number] [place] [address] Oct, [facility] [place] [facility] [address] [id number] [place] [address] Oct, [facility] [place] [facility] [address] [id number] [place] [address] Sep, [facility] [place] [facility] [address] [id number] [place] [address] Sep, [facility] [place] [facility] [address] [id number] [place] [address] Sep, [facility] [place] [facility] [address] [id number] [place] [address] Sep, [facility] [place] [facility] [address] [id number] [place] [address] Sep, [facility] [place] [facility] [address] [id number] [place] [address] Sep, [facility] [place] [facility] [address] [id number] [place] [address] Sep, [facility] [place] [facility] [address] [id number] [place] [address] Sep, [facility] [place] [facility] [address] [id number] [place] [address] Aug, [facility] [place] [facility] [address] [id number] [place] [address] Aug, [facility] [place] [facility] [address] [id number] [place] [address] Aug, [facility] [place] [facility] [address] [id number] [place] [address] Aug, [facility] [place] [facility] [address] [facility] [id number] [place] [address] Aug, [facility] [place] [facility] [address] [id number] [place] [address] Aug, [facility] [place] [facility] [address] [id number] [place] [address] Aug, [facility] [place] [facility] [address] [id number] [place] [address] Aug, [facility] [place] [facility] [address] [id number] [place] [address] Aug, [facility] [place] [facility] [address] [facility] [id number] [place] [address] Jul, [facility] [place] [facility] [address] [id number] [place] [address] Jun, [facility] [address] [id number] [place] [address] May, [facility] [address] [id number] [place] [address] May, [facility] [address] [id number] [place] [address] May, [facility] [address] [id number] [place] [address] Apr, [facility] [address] [id number] [place] [address] Mar, [facility] [address] [id number] [place] [address] February, [facility] [address] [id number] [place] [address] Oct, [facility] [address] [id number] [place] [address] Oct, [facility] [address] [id number] [place] [address] Oct, [facility] [address] [id number] [place] [address] Oct, [facility] [address] [id number] [place] [address] Oct, [facility] [address] [id number] [place] [address] Oct, [facility] [address] [id number] [place] [address] Sep, [facility] [place] [facility] [address] [id number] [place] [address] Sep, [facility] [address] [id number] [place] [address] Aug, [facility] [place] [facility] [address] [id number] [place] [address] Aug, [facility] [place] [facility] [address] [id number] [place] [address] Jul, [facility] [place] [facility] [address] [id number] [place] [address] Jul, [facility] [place] [facility] [address] [id number] [place] [address] Jul, [facility] [place] [facility] [address] [id number] [place] [address] Jul, [facility] [place] [facility] [address] [id number] [place] [address] Jul, [facility] [place] [facility] [address] [id number] [place] [address] Jul, [facility] [place] [facility] [address] [id number] [place] [address] Jul, [facility] [place] [facility] [address] [id number] [place] [address] Jul, [facility] [place] [facility] [address] [id number] [place] [address] Jun, [facility] [place] [facility] [address] [id number] [place] [address] Jun, [facility] [place] [facility] [address] [id number] [place] [address] May, [facility] [place] [facility] [address] [id number] [place] [address] Apr, [facility] [place] [facility] [address] [id number] [place] [address] Mar, [facility] [place] [facility] [address] [id number] [place] [address] Mar, [facility] [place] [facility] [address] [id number] [place] [address] Mar, [facility] [address] [id number] [place] [address] Mar, [facility] [place] [facility] [address] [id number] [place] [address] Jan, [facility] [place] [facility] [address] [id number] [place] [address] Nov, [facility] [place] [facility] [address] [id number] [place] [address] Nov, [facility] [place] [facility] [address] [id number] [place] [address] Nov, [facility] [place] [facility] [address] [id number] [place] [address] Oct, [facility] [address] [id number] [place] [address] Sep, [facility] [place] [facility] [address] [id number] [place] [address] Sep, [facility] [place] [facility] [address] [id number] [place] [address] Aug, [facility] [place] [facility] [address] [id number] [place] [address] Aug, [facility] [place] [facility] [address] [id number] [place] [address] Aug, [facility] [place] [facility] [address] [id number] [place] [address] Aug, [facility] [place] [facility] [address] [id number] [place] [address] Jul, [facility] [place] [facility] [address] [id number] [place] [address] May, [facility] [place] [facility] [address] [id number] [place] [address] Jan, [facility] [place] [facility] [address] [facility] [id number] [place] [address] 11 Nov, 2010 [facility] [address] [facility] [id number] [place] [address] Apr, [facility] [address] [facility] [id number] [place] [address] Dec, [facility] [address] [facility] [id number] [place] [address] 12 Nov, 2008 IMMUNIZATIONS No Known Immunizations SOCIAL HISTORY Never Assessed REASON FOR VISIT Requests return call PLAN OF CARE VITAL SIGNS MEDICATIONS Unknown Medications RESULTS No Results PROCEDURES No Known procedures INSTRUCTIONS MEDICATIONS ADMINISTERED No Known Medications MEDICAL (GENERAL) HISTORY Type Description Date Medical History Cardiovascular xbeedyyg-VNY-Qoctcrzd, non-obstructive per (01/2011) Dr. Mendoza Medical History Stress test 03/07/13-Dr. Kelly Dietrich normal Medical History Hypertension Medical History Asthma Medical History Gastrointestinal Disorder--IBS, GERD, Hx of fatty liver Medical History Hernia 1979 Medical History Cervical dysplasia 02/16-Pap LGSIL/Perry-mild dysplasia Medical History Hyperlipidemia Medical History Rheumatoid [...] Kidney injury 07/10/15-07/11/2015 Hospitalization History Symptomatic Hypokalemia/Nause-Via [facility] 05/13/16 Hospitalization History Stroke 05/03/2017 Hospitalization History stroke 08/24/2017--09/01/2017
--- OUTSIDE RECORDS SUMMARY | 2019-05-22 07:46 | XMS REPORT ---
Author Author LORI SNOWDEN [facility] Address [address] [place] [address] Care Team Providers Care Digital Marketing Consultant Name Role Phone LORI SNOWDEN Unavailable PROBLEMS Type Condition ICD9-CM Code FHR48-OM Code Onset Dates Condition Status SNOMED Code Problem ADHD (attention deficit hyperactivity disorder), combined type F90.2 Active 03721462 Problem Generalized anxiety disorder F41.1 Active 19140857 Problem Asthma J45.909 Active 165887395 Problem Hypertension I10 Active 95958733 Problem Chronic pain syndrome G89.4 Active 534649535 Problem Rheumatoid arthritis involving multiple sites, unspecified rheumatoid factor presence M06.9 Active 070649011 Problem Rheumatoid arthritis M06.9 Active 12316362 Problem Gastroesophageal reflux disease with esophagitis K21.0 Active 237314245 Problem Weight gain R63.5 Active 7614957 Problem Anxiety F41.9 Active 76177548 Problem Panic attacks F41.0 Active 624244252 Problem Irritable bowel syndrome with diarrhea K58.0 Active 626206557 Problem Paroxysmal atrial fibrillation I48.0 Active 128890889 Problem Unsteady gait R26.81 Active 26991317 Problem Hyperinsulinemia E16.1 Active 45740160 Problem Arteriosclerotic coronary artery disease I25.10 Active 19007586 Problem Mixed hyperlipidemia E78.2 Active 406924207 Problem Seasonal allergies J30.2 Active 817458404 Problem Mild episode of recurrent major depressive disorder F33.0 Active 761885259 Problem Chronic obstructive pulmonary disease, unspecified COPD type J44.9 Active 32098639 Problem Primary insomnia F51.01 Active 6657983 Problem Chronic obstructive pulmonary disease, unspecified J44.9 Active [id number] Problem Obstructive sleep apnea G47.33 Active 19883658 Problem Neuropathy G62.9 Active 449860634 Problem Other insomnia G47.09 Active 396360965 Problem Dysthymic disorder F34.1 Active 26067464 Problem Sleep apnea in adult G47.30 Active 05267476 Problem Other prison (current) drug therapy Z79.899 Active 487942409 Problem Cerebrovascular accident (CVA), unspecified mechanism I63.9 Active 599256191 ALLERGIES No Information ENCOUNTERS Encounter Location Date Diagnosis [facility] [address] [address] Aug, [facility] [id number] [place] [address] Jul, [facility] [id number] [place] [address] Jul, [facility] [id number] [place] [address] Jul, [facility] [address] [place] [id number] Jul, [facility] [id number] [place] [address] Jul, [facility] [address] [place] [id number] Jul, Weakness R53.1 ; Paroxysmal atrial fibrillation I48.0 and Unsteady gait R26.81 [facility] [address] [place] [address] Jul, Tobacco abuse Z72.0 [facility] [address] [place] [id number] Jun, History of acute respiratory failure Z87.09 ; Weight gain R63.5 and Tobacco abuse Z72.0 [facility] [address], [place] [address] Jun, [facility] [id number] [place] [address] May, Primary insomnia F51.01 [facility] [address] [place] [address] May, Mild episode of recurrent major depressive disorder F33.0 [facility] [id number] [place] [address] May, [facility] [id number] [place] [address] May, Chronic obstructive pulmonary disease, unspecified COPD type J44.9 ; Primary insomnia F51.01 ; Fatigue, unspecified type R53.83 and Weight gain R63.5 [facility] [id number] [place] [address] May, Thrush B37.0 [facility] [id number] [place] [address] May, Mild episode of recurrent major depressive disorder F33.0 and Generalized anxiety disorder F41.1 [facility] [id number] [place] [address] May, Thrush B37.0 [facility] [id number] [place] [address] Apr, Cough R05 [facility] [id number] [place] [address] Mar, Mild episode of recurrent major depressive disorder F33.0 [facility] [id number] [place] [address] Mar, Mild episode of recurrent major depressive disorder F33.0 and Generalized anxiety disorder F41.1 [facility] [id number] [place] [address] Mar, Seasonal allergies J30.2 [facility] [address] [place] [address] Mar, Seasonal allergies J30.2 [facility] [id number] [place] [address] February, Generalized anxiety disorder F41.1 [facility] [address], [place] [address] February, Cough R05 and Seasonal allergies J30.2 [facility] [address], [place] [address] February, Generalized anxiety disorder F41.1 and Mild episode of recurrent major depressive disorder F33.0 [facility] [address] [place] [address] February, 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 ; Anxiety F41.9 ; Panic attacks F41.0 and Irritable bowel syndrome with diarrhea K58.0 [facility] [id number] [place] [address] February, [facility] [id number] [place] [address] Jan, Mixed hyperlipidemia E78.2 [facility] [address] [place] [address] Jan, [facility] [id number] [place] [address] Jan, [facility] [id number] [place] [address] Jan, [facility] [id number] [place] [address] Jan, [facility] [address], [place] [address] Dec, [facility] [id number] [place] [address] Dec, [facility] [address], [place] [address] Dec, [facility] [id number] [place] [address] Nov, Dysthymic disorder F34.1 [facility] [address], [place] [address] Oct, [facility] [id number] [place] [address] Oct, [facility] [id number] [place] [address] Oct, [facility] [address] [address] Oct, Diarrhea, unspecified type R19.7 and Dysuria R30.[address] [address] Oct, [facility] [address] [address] Sep, [facility] [address] [address] Sep, [address] [address] Sep, Anxiety F41.[address] [address] Sep, Cerebrovascular accident (CVA), unspecified mechanism I63.9 ; Mixed hyperlipidemia E78.2 ; Gastroesophageal reflux disease with esophagitis K21.0 and Anxiety F41.9 [place] [id number] [place] [address] Sep, [place] [id number] [place] [address] Aug, Chronic obstructive pulmonary disease, unspecified J44.9 ; Asthma J45.909 ; Nausea R11.0 ; Dysthymic disorder F34.1 ; Cerebrovascular accident (CVA), unspecified mechanism I63.9 and Rheumatoid arthritis M06.9 [place] [id number] [place] [address] Aug, Nausea R11.0 ; Encounter for immunization Z23 ; Sleep apnea in adult G47.30 ; Rheumatoid arthritis involving multiple sites, unspecified rheumatoid factor presence M06.9 ; Generalized anxiety disorder F41.1 ; Dysthymic disorder F34.1 and Asthma J45.909 [facility] [address] [address] Jul, [facility] [address] [address] May, ADHD (attention deficit hyperactivity disorder), combined type F90.2 ; Generalized anxiety disorder F41.1 and Persistent depressive disorder F34.1 [facility] [address] [address] May, Cerebrovascular accident (CVA), unspecified mechanism I63.9 [facility] [address] [address] Apr, Mixed hyperlipidemia E78.2 and Cerebrovascular accident (CVA), unspecified mechanism I63.9 [facility] [address] [address] Apr, Generalized anxiety disorder F41.1 [facility] [address] [address] Apr, Bronchitis J40 and Tobacco use Z72.0 [facility] [address] [address] Apr, Mixed hyperlipidemia E78.2 [facility] [address] [address] Apr, 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 [facility] [address] [address] Apr, [facility] [address] [address] Apr, Generalized anxiety disorder F41.1 [facility] [id number] [place] [address] Apr, Obstructive sleep apnea G47.33 and Hyperinsulinemia E16.1 [facility] [address] [address] Apr, ADHD (attention deficit hyperactivity disorder), combined type F90.2 ; Generalized anxiety disorder F41.1 and Persistent depressive disorder F34.1 [facility] [id number] [place] [address] Mar, [facility] [id number] [place] [address] Mar, Generalized anxiety disorder F41.1 [facility] [id number] [place] [address] Mar, Tarsal tunnel syndrome of both lower extremities G57.53 [facility] [id number] [place] [address] February, [facility] [id number] [place] [address] February, [facility] [id number] [place] [address] February, Asthma J45.909 [facility] [id number] [place] [address] February, Generalized anxiety disorder F41.1 [facility] [id number] [place] [address] February, Hypoxemia R09.02 ; Hyperglycemia R73.9 ; Rheumatoid arthritis M06.9 and Generalized anxiety disorder F41.1 [facility] [id number] [place] [address] February, [facility] [id number] [place] [address] Jan, Chronic obstructive pulmonary disease, unspecified J44.9 [facility] [id number] [place] [address] Jan, Chronic pain syndrome G89.4 [facility] [id number] [place] [address] Jan, Hypoxemia R09.02 [facility] [address] [address] Jan, [facility] [address] [address] Jan, Chronic obstructive pulmonary disease, unspecified J44.9 ; Hypoxemia R09.02 ; Other insomnia G47.09 and Left anterior shoulder pain M25.512 [facility] [facility] [address] [address] Jan, Numbness in feet R20.0 and Neuropathy G62.9 [facility] [address] [address] Jan, [facility] [address] [address] Dec, Acute pain of left shoulder M25.512 [facility] [address] [address] Dec, Acute pain of left shoulder M25.512 [facility] [address] [address] Dec, Generalized anxiety disorder F41.1 [facility] [address] [address] Dec, Generalized anxiety disorder F41.1 [facility] [address] [address] Nov, ADHD (attention deficit hyperactivity disorder), combined type F90.2 ; Generalized anxiety disorder F41.1 and Persistent depressive disorder F34.1 [facility] [address] [address] Nov, Acute pain of left shoulder M25.512 [facility] [address] [address] Nov, ADHD (attention deficit hyperactivity disorder), combined type F90.2 ; Generalized anxiety disorder F41.1 and Persistent depressive disorder F34.1 [facility] [address] [place] [address] Nov, Chronic pain syndrome G89.4 [facility] [address], [place] [address] Nov, Chronic pain syndrome G89.4 [facility] [id number] [place] [address] Nov, Acute pain of left shoulder M25.512 [facility] [id number] [place] [address] Nov, Generalized anxiety disorder F41.1 [facility] [id number] [place] [address] Nov, Acute pain of left shoulder M25.512 [facility] [id number] [place] [address] Nov, ADHD (attention deficit hyperactivity disorder), combined type F90.2 ; Generalized anxiety disorder F41.1 and Persistent depressive disorder F34.1 [facility] [id number] [place] [address] Nov, Acute pain of left shoulder M25.512 ; Generalized anxiety disorder F41.1 ; Chronic pain syndrome G89.4 ; Hyperinsulinemia E16.1 ; Pain of left foot M79.672 and Pain in right foot M79.671 [facility] [address] [place] [address] Oct, ADHD (attention deficit hyperactivity disorder), combined type F90.2 ; Generalized anxiety disorder F41.1 and Dysthymic disorder F34.1 [facility] [address] [place] [address] Sep, [facility] [id number] [place] [address] Sep, [facility] [id number] [place] [address] 08 Sep, 2016 Routine gynecological examination V72.31 ; Cervical cancer screening Z12.4 ; Breast cancer screening Z12.39 ; Colon cancer screening Z12.11 ; Hypokalemia E87.6 ; Herpes simplex type 1 infection B00.9 and Abscess of right axilla L02.411 [place] [address] [address] Sep, [facility] [facility] [address] [address] Sep, ADHD (attention deficit hyperactivity disorder), combined type F90.2 ; Generalized anxiety disorder F41.1 and Dysthymic disorder F34.1 [facility] [id number] [place] [address] Aug, [facility] [address] [address] Aug, [facility] [id number] [place] [address] Aug, Generalized anxiety disorder F41.[address] [address] Aug, ADHD (attention deficit hyperactivity disorder), combined type F90.2 ; Generalized anxiety disorder F41.1 and Dysthymic disorder F34.1 [facility] [id number] [place] [address] Jul, Chronic pain syndrome G89.4 ; Hypertension I10 ; Hypokalemia E87.6 ; Asthma J45.909 and Nausea R11.[address] [address] Jul, [place] [address] [address] Jul, Asthma J45.909 [place] [address] [place] [address] Jul, ADHD (attention deficit hyperactivity disorder), combined type F90.2 ; Generalized anxiety disorder F41.1 and Dysthymic disorder F34.1 [facility] [address] [address] Jul, [place] [address] [address] Jul, Hypertension I10 ; Arteriosclerotic coronary artery disease I25.10 ; Mixed hyperlipidemia E78.2 ; Other prison (current) drug therapy Z79.899 and Hyperglycemia R73.9 [facility] [address] [address] 16 Jun, 2016 Hypokalemia E87.6 and Hyperglycemia R73.9 [facility] [facility] [address] [address] 14 Jun, 2016 [place] [address] [address] 13 Jun, 2016 Abnormal kidney function N28.9 [place] [address] [address] 09 Jun, 2016 [place] [address] [address] Jun, ADHD (attention deficit hyperactivity disorder), combined type F90.2 ; Generalized anxiety disorder F41.1 and Dysthymic disorder F34.1 [facility] [address] [address] Jun, Generalized anxiety disorder F41.1 and Dysthymic disorder F34.1 [facility] [address] [address] Jun, Hypokalemia E87.6 [facility] [address] [address] May, Hypokalemia E87.6 ; Vertigo R42 and Hyperinsulinemia E16.1 [facility] [address] [address] May, [place] [address] [address] May, Abnormal kidney function N28.9 ; Hyperinsulinemia E16.1 and Nausea R11.[address] [address] May, Hypokalemia E87.6 ; Nausea R11.0 ; Epigastric pain R10.13 ; Dehydration E86.0 ; Diaphoresis R61 and Right arm pain M79.601 [place] [address] [address] May, [place] [address] [address] May, Hypokalemia E87.6 [facility] [address] [address] May, Hypokalemia E87.6 [facility] [facility] [address] [address] Apr, [place] [address] [address] Apr, ADHD (attention deficit hyperactivity disorder), combined type F90.2 ; Generalized anxiety disorder F41.1 and Dysthymic disorder F34.1 [place] [address] [address] Apr, Right arm pain M79.601 and Hyperinsulinemia E16.1 [place] [address] [address] Mar, [place] [address] [address] Mar, [place] [address] [address] Mar, Hyperinsulinemia E16.1 ; Hyperlipidemia, unspecified hyperlipidemia type E78.5 ; Central venous catheter in place Z78.9 ; Generalized anxiety disorder F41.1 and Urinary tract infection, site not specified N39.0 [facility] [id number] [place] [address] Mar, ADHD (attention deficit hyperactivity disorder), combined type F90.2 ; Generalized anxiety disorder F41.1 and Dysthymic disorder F34.1 [facility] [id number] [place] [address] February, ADHD (attention deficit hyperactivity disorder), combined type F90.2 ; Generalized anxiety disorder F41.1 and Dysthymic disorder F34.1 [facility] [id number] [place] [address] February, [address] [address] February, [facility] [id number] [place] [address] February, Hypertension I10 and Weight gain R63.5 [place] [id number] [place] [address] February, Major depressive disorder, recurrent, moderate F33.1 and Generalized anxiety disorder F41.1 [place] [id number] [place] [address] February, ADHD (attention deficit hyperactivity disorder), combined type F90.2 ; Generalized anxiety disorder F41.1 and Dysthymic disorder F34.1 [facility] [id number] [place] [address] February, [place] [id number] [place] [address] February, Asthma J45.909 ; Weight gain R63.5 ; Hypertension I10 ; Rheumatoid arthritis M06.9 and Chronic pain syndrome G89.[address] [place] [address] Jan, ADHD (attention deficit hyperactivity disorder), combined type F90.2 ; Generalized anxiety disorder F41.1 and Dysthymic disorder F34.1 [facility] [address] [place] [address] Dec, ADHD (attention deficit hyperactivity disorder), combined type F90.2 ; Generalized anxiety disorder F41.1 and Dysthymic disorder F34.1 [facility] [address], [place] [address] Dec, [facility] [id number] [place] [address] Nov, [facility] [address], [place] [address] Nov, [facility] [id number] [place] [address] Nov, [facility] [address], [place] [address] Nov, [facility] [address], [place] [address] Oct, [facility] [address], [place] [address] Oct, [facility] [address] [address] Oct, [facility] [address], [place] [address] Sep, [facility] [id number] [address] Sep, [facility] [address], [place] [address] Sep, Agoraphobia with panic disorder F40.01 ; Attention-deficit hyperactivity disorder, combined type F90.2 and Dysthymic disorder F34.1 [facility] [address] [place] [address] Aug, [facility] [id number] [place] [address] Aug, [facility] [id number] [place] [address] Aug, [facility] [id number] [place] [address] Aug, Dysthymic disorder F34.1 ; Generalized anxiety disorder F41.1 and ADHD (attention deficit hyperactivity disorder), combined type F90.2 [facility] [facility] [id number] [place] [address] Aug, ADHD (attention deficit hyperactivity disorder), combined type F90.2 ; Generalized anxiety disorder F41.1 and Dysthymic disorder F34.1 [place] [id number] [place] [address] Jul, Urinary tract infection, site not specified N39.0 ; Hypotension, unspecified I95.9 and Breast cancer screening Z12.39 [facility] [id number] [place] [address] Jul, [facility] [id number] [place] [address] Jul, [facility] [id number] [place] [address] Jul, Urinary tract infection, site not specified N39.0 ; Nausea R11.0 ; Gastroenteritis K52.9 ; Renal failure N19 and Other hypotension I95.89 [facility] [id number] [place] [address] Jul, [facility] [id number] [place] [id number] Jul, [facility] [address] [place] [address] Jul, [facility] [id number] [place] [id number] Jun, [place] [id number] [place] [id number] Jun, Major depression in partial remission 296.25 ; Generalized anxiety disorder 300.02 and ADHD, predominantly inattentive type 314.[address] [phone] May, [place] [id number] [place] [phone] Apr, Major depressive disorder, recurrent episode, severe, without mention of psychotic behavior 296.33 ; Agoraphobia with panic disorder 300.21 and Generalized anxiety disorder [id number] [place] [address] Apr, ADHD (attention deficit hyperactivity disorder), combined type 314.01 ; Generalized anxiety disorder 300.02 and Dysthymic disorder 300.[id number] [place] [address] Apr, CAD (coronary artery disease) 414.00 ; HTN (hypertension) 401.9 and Tobacco use 305.1 [id number] [place] [address] Apr, [address] [address] Mar, ADHD (attention deficit hyperactivity disorder), combined type 314.01 ; Generalized anxiety disorder 300.02 ; Dysthymic disorder 300.4 ; No condition on [place] II V71.09 ; Rheumatoid arthritis 714.0 ; Incontinence 788.30 ; Irritable bowel syndrome 564.1 ; Osteoporosis 733.00 and Chronic pain 338.29 [id number] [place] [address] Mar, Agoraphobia with panic disorder 300.21 and Major depressive disorder, recurrent episode, moderate 296.32 [facility] [address] [id number] [address] Mar, [facility] [address] [address] February, [facility] [address] [address] February, Agoraphobia with panic disorder 300.21 and Major depressive disorder, recurrent episode, moderate 296.32 [facility] [address] [id number] [address] February, [facility] [id number] [place] [address] Jan, [facility] [address] [address] Jan, [facility] [address] [address] Dec, [facility] [address] [address] Dec, [facility] [address], [place] [address] Dec, [facility] [address] [address] Dec, [facility] [address], [place] [address] Dec, [facility] [address] [id number] [address] Dec, [facility] [id number], [place] [address] Nov, [facility] [address] [address] Nov, [facility] [address] [address] Nov, 2014 [facility] [place] [facility] [address] [id number] [place] [address] Nov, 2014 [facility] [place] [facility] [address] [id number] [place] [address] Nov, 2014 [facility] [place] [facility] [address] [id number] [place] [address] Nov, 2014 [facility] [place] [facility] [address] [id number] [place] [address] Nov, 2014 [facility] [place] [facility] [address] [id number] [place] [address] Nov, 2014 [facility] [place] [facility] [address] [id number] [place] [address] Oct, [facility] [place] [facility] [address] [id number] [place] [address] Oct, [facility] [place] [facility] [address] [id number] [place] [address] Oct, [facility] [place] [facility] [address] [id number] [place] [address] Oct, [facility] [place] [facility] [address] [id number] [place] [address] Oct, [facility] [place] [facility] [address] [id number] [place] [address] Oct, [facility] [place] [facility] [address] [id number] [place] [address] Sep, [facility] [place] [facility] [address] [id number] [place] [address] Sep, [facility] [place] [facility] [address] [id number] [place] [address] Sep, [facility] [place] [facility] [address] [id number] [place] [address] Sep, [facility] [place] [facility] [address] [id number] [place] [address] Sep, [facility] [place] [facility] [address] [id number] [place] [address] Sep, [facility] [place] [facility] [address] [id number] [place] [address] Sep, [facility] [place] [facility] [address] [id number] [place] [address] Aug, [facility] [place] [facility] [address] [id number] [place] [address] Aug, [facility] [place] [facility] [address] [id number] [place] [address] Aug, [facility] [place] [facility] [address] [id number] [place] [address] Aug, [facility] [place] [facility] [address] [id number] [place] [address] Aug, [facility] [place] [facility] [address] [id number] [place] [address] Aug, [facility] [place] [facility] [address] [id number] [place] [address] Jul, [facility] [place] [facility] [address] [id number] [place] [address] Jul, [facility] [place] [facility] [address] [id number], [place] [address] Jul, [facility] [place] [facility] [address] [id number] [place] [address] Jul, [facility] [place] [facility] [address] [id number] [place] [address] Jul, [facility] [place] [facility] [address] [id number] [place] [address] Jul, [facility] [place] [facility] [address] [id number], [place] [address] Jun, [facility] [place] [facility] [address] [id number] [place] [address] Jun, [facility] [place] [facility] [address] [id number] [place] [address] May, [facility] [place] [facility] [address] [id number] [place] [address] May, [facility] [place] [facility] [address] [id number] [place] [address] Apr, [facility] [place] [facility] [address] [id number] [place] [address] Apr, [facility] [place] [facility] [address] [id number] [place] [address] Apr, [facility] [place] [facility] [address] [id number] [place] [address] Apr, [facility] [place] [facility] [address] [id number] [place] [address] Mar, [facility] [place] [facility] [address] [id number] [place] [address] Mar, [facility] [place] [facility] [address] [id number] [place] [address] Mar, [facility] [place] [facility] [address] [id number] [place] [address] Mar, [facility] [place] [facility] [address] [id number] [place] [address] February, [facility] [place] [facility] [address] [id number] [place] [address] February, [facility] [place] [facility] [address] [id number] [place] [address] February, [facility] [place] [facility] [address] [id number] [place] [address] February, [facility] [place] [facility] [address] [id number] [place] [address] February, [facility] [address] [id number] [place] [address] February, [facility] [place] [facility] [address] [id number] [place] [address] Jan, [facility] [place] [facility] [address] [id number] [place] [address] Jan, [facility] [place] [facility] [address] [id number] [place] [address] Dec, [facility] [place] [facility] [address] [id number] [place] [address] Dec, [facility] [place] [facility] [address] [id number] [place] [address] Nov, [facility] [place] [facility] [address] [id number] [place] [address] Nov, [facility] [address] [id number] [place] [address] Oct, [facility] [place] [facility] [address] [id number] [place] [address] Oct, [facility] [address] [id number] [place] [address] Oct, [facility] [place] [facility] [address] [id number] [place] [address] Oct, [facility] [place] [facility] [address] [id number] [place] [address] Sep, [facility] [place] [facility] [address] [id number] [place] [address] Sep, [facility] [place] [facility] [address] [id number] [place] [address] Sep, [facility] [place] [facility] [address] [id number] [place] [address] Sep, [facility] [place] [facility] [address] [id number] [place] [address] Sep, [facility] [place] [facility] [address] [id number] [place] [address] Sep, [facility] [place] [facility] [address] [id number] [place] [address] Sep, [facility] [place] [facility] [address] [id number] [place] [address] Sep, [facility] [place] [facility] [address] [id number] [place] [address] Aug, [facility] [place] [facility] [address] [id number] [place] [address] Aug, [facility] [place] [facility] [address] [facility] [id number] [place] [address] Aug, [facility] [place] [facility] [address] [id number], [place] [address] Aug, [facility] [place] [facility] [address] [id number], [place] [address] Aug, [facility] [place] [facility] [address] [facility] [id number], [place] [address] Aug, [facility] [place] [facility] [address] [id number], [place] [address] Aug, [facility] [place] [facility] [address] [id number], [place] [address] Aug, [facility] [place] [facility] [address] [id number], [place] [address] Aug, [facility] [place] [facility] [address] [id number], [place] [address] Jul, [facility] [place] [facility] [address] [facility] [id number], [place] [address] Jun, [facility] [place] [facility] [address] [id number] [place] [address] May, [facility] [address] [id number] [place] [address] May, [facility] [address] [id number] [place] [address] May, [facility] [address] [id number] [place] [address] Apr, [facility] [address] [id number] [place] [address] Mar, [facility] [address] [id number] [place] [address] February, [facility] [address] [id number] [place] [address] Oct, [facility] [address] [id number] [place] [address] Oct, [facility] [address] [id number] [place] [address] Oct, [facility] [address] [id number] [place] [address] Oct, [facility] [address] [id number] [place] [address] Oct, [facility] [address] [id number] [place] [address] Oct, [facility] [address] [id number] [place] [address] Sep, [facility] [place] [facility] [address] [id number] [place] [address] Sep, [facility] [place] [facility] [address] [id number] [place] [address] Aug, [facility] [address] [id number] [place] [address] Aug, [facility] [place] [facility] [address] [id number] [place] [address] Jul, [facility] [place] [facility] [address] [id number] [place] [address] Jul, [facility] [place] [facility] [address] [id number] [place] [address] Jul, [facility] [place] [facility] [address] [id number] [place] [address] Jul, [facility] [place] [facility] [address] [id number] [place] [address] Jul, [facility] [place] [facility] [address] [id number] [place] [address] Jul, [facility] [place] [facility] [address] [id number] [place] [address] Jul, [facility] [place] [facility] [address] [id number] [place] [address] Jul, [facility] [place] [facility] [address] [id number] [place] [address] Jun, [facility] [place] [facility] [address] [id number] [place] [address] Jun, [facility] [place] [facility] [address] [id number] [place] [address] May, [facility] [place] [facility] [address] [id number] [place] [address] Apr, [facility] [place] [facility] [address] [id number] [place] [address] Mar, [facility] [place] [facility] [address] [id number] [place] [address] Mar, [facility] [place] [facility] [address] [id number] [place] [address] Mar, [facility] [place] [facility] [address] [id number], [place] [address] Mar, [facility] [address] [id number] [place] [address] Jan, [facility] [place] [facility] [address] [id number] [place] [address] Nov, [facility] [place] [facility] [address] [id number] [place] [address] Nov, [facility] [place] [facility] [address] [id number] [place] [address] Nov, [facility] [address] [id number] [place] [address] Oct, [facility] [place] [facility] [address] [id number] [place] [address] Sep, [facility] [place] [facility] [address] [facility] [id number] [place] [address] Sep, [facility] [place] [facility] [address] [id number] [place] [address] Aug, [facility] [place] [facility] [address] [facility] [id number] [place] [address] Aug, [facility] [place] [facility] [address] [facility] [id number] [place] [address] Aug, [facility] [place] [facility] [address] [id number], [place] [address] Aug, [facility] [place] [facility] [address] [id number], [place] [address] Jul, [facility] [place] [facility] [address] [id number] [place] [address] May, [facility] [place] [facility] [address] [id number] [place] [address] Jan, [facility] [place] [facility] [address] [facility] [id number] [place] [address] Nov, [facility] [place] [facility] [address] [facility] [id number] [place] [address] 12 Apr, 2010 [facility] [address] [facility] [id number] [place] [address] Dec, [facility] [address] [facility] [id number] [place] [address] 12 Nov, 2008 IMMUNIZATIONS No Known Immunizations SOCIAL HISTORY Never Assessed REASON FOR VISIT Discharge to home PLAN OF CARE VITAL SIGNS MEDICATIONS Unknown Medications RESULTS No Results PROCEDURES No Known procedures INSTRUCTIONS MEDICATIONS ADMINISTERED No Known Medications MEDICAL (GENERAL) HISTORY Type Description Date Medical History Cardiovascular qqfsoipg-MOP-Yutssiho, non-obstructive per (01/2011) Dr. Mendoza Medical History Stress test 03/07/13-Dr. Kelly Dietrich normal Medical History Hypertension Medical History Asthma Medical History Gastrointestinal Disorder--IBS, GERD, Hx of fatty liver Medical History Hernia 1979 Medical History Cervical dysplasia 02/16-Pap LGSIL/[place]-mild dysplasia Medical History Hyperlipidemia Medical History Rheumatoid [...] Symptomatic Hypokalemia/Nause-[facility] 05/13/16 Hospitalization History Stroke 05/03/2017 Hospitalization History stroke 08/24/2017--09/01/2017
--- OUTSIDE RECORDS SUMMARY | 2019-05-22 07:47 | XMS REPORT ---
Author Author LORI SNOWDEN [facility] Address [address] [place] [address] Care Team Providers Care Campus Monitor Name Role Phone LORI SNOWDEN Unavailable PROBLEMS Type Condition ICD9-CM Code KLU68-PH Code Onset Dates Condition Status SNOMED Code Problem ADHD (attention deficit hyperactivity disorder), combined type F90.2 Active 36304059 Problem Generalized anxiety disorder F41.1 Active 95327130 Problem Asthma J45.909 Active 634364423 Problem Hypertension I10 Active 09655344 Problem Chronic pain syndrome G89.4 Active 688124422 Problem Rheumatoid arthritis involving multiple sites, unspecified rheumatoid factor presence M06.9 Active 139807138 Problem Rheumatoid arthritis M06.9 Active 18715072 Problem Gastroesophageal reflux disease with esophagitis K21.0 Active 721738057 Problem Weight gain R63.5 Active 3453153 Problem Anxiety F41.9 Active 08616742 Problem Panic attacks F41.0 Active 109751364 Problem Irritable bowel syndrome with diarrhea K58.0 Active 513922313 Problem Paroxysmal atrial fibrillation I48.0 Active 103572788 Problem Unsteady gait R26.81 Active 40771827 Problem Hyperinsulinemia E16.1 Active 15056748 Problem Arteriosclerotic coronary artery disease I25.10 Active 43644299 Problem Mixed hyperlipidemia E78.2 Active 607399559 Problem Seasonal allergies J30.2 Active 353252700 Problem Mild episode of recurrent major depressive disorder F33.0 Active 980702150 Problem Chronic obstructive pulmonary disease, unspecified COPD type J44.9 Active 39605745 Problem Primary insomnia F51.01 Active 0942811 Problem Chronic obstructive pulmonary disease, unspecified J44.9 Active [id number] Problem Obstructive sleep apnea G47.33 Active 03754797 Problem Neuropathy G62.9 Active 939655259 Problem Other insomnia G47.09 Active 526814699 Problem Dysthymic disorder F34.1 Active 20395294 Problem Sleep apnea in adult G47.30 Active 24641610 Problem Other prison (current) drug therapy Z79.899 Active 875009675 Problem Cerebrovascular accident (CVA), unspecified mechanism I63.9 Active 233805172 ALLERGIES No Information ENCOUNTERS Encounter Location Date Diagnosis [facility] [id number] [place] [address] Aug, [facility] [id number] [place] [address] Jul, [facility] [employer] [address] [place] [id number] Jul, [facility] [id number] [place] [address] Jul, [facility] [address] [place] [id number] Jul, Weakness R53.1 ; Paroxysmal atrial fibrillation I48.0 and Unsteady gait R26.81 [facility] [id number] [place] [address] Jul, Tobacco abuse Z72.0 [facility] [employer] [address] [place] [id number] Jun, History of acute respiratory failure Z87.09 ; Weight gain R63.5 and Tobacco abuse Z72.0 [facility] [id number] [place] [address] Jun, [facility] [id number] [place] [address] May, Primary insomnia F51.01 [facility] [id number] [place] [address] May, Mild episode of recurrent major depressive disorder F33.0 [facility] [id number] [place] [address] May, [facility] [id number] [place] [address] May, Chronic obstructive pulmonary disease, unspecified COPD type J44.9 ; Primary insomnia F51.01 ; Fatigue, unspecified type R53.83 and Weight gain R63.5 [facility] [id number] [place] [address] May, Thrush B37.0 [facility] [id number] [place] [address] May, Mild episode of recurrent major depressive disorder F33.0 and Generalized anxiety disorder F41.1 [facility] [address] [address] May, Thrush B37.0 [facility] [address] [address] Apr, Cough R05 [facility] [address] [address] Mar, Mild episode of recurrent major depressive disorder F33.0 [facility] [address] [address] Mar, Mild episode of recurrent major depressive disorder F33.0 and Generalized anxiety disorder F41.1 [facility] [id number] [place] [address] Mar, Seasonal allergies J30.2 [facility] [id number] [place] [address] Mar, Seasonal allergies J30.2 [facility] [id number] [place] [address] February, Generalized anxiety disorder F41.1 [facility] [id number] [place] [address] February, Cough R05 and Seasonal allergies J30.2 [facility] [id number] [place] [address] February, Generalized anxiety disorder F41.1 and Mild episode of recurrent major depressive disorder F33.0 [facility] [address] [address] February, Other long term care phlebotomist (current) drug therapy Z79.899 ; Anxiety F41.9 ; Panic attacks F41.0 and Irritable bowel syndrome with diarrhea K58.0 [facility] [address] [address] February, [facility] [id number] [place] [address] Jan, Mixed hyperlipidemia E78.2 [facility] [id number] [place] [address] Jan, [facility] [id number] [place] [address] Jan, [facility] [address] [address] Jan, [facility] [id number] [place] [address] Jan, [facility] [address] [address] Dec, [facility] [address] [address] Dec, [facility] [address] [address] Dec, [facility] [address] [address] Nov, Dysthymic disorder F34.1 [facility] [address] [address] Oct, [facility] [address] [address] Oct, [facility] [address], [place] [address] Oct, [facility] [id number] [place] [address] Oct, Diarrhea, unspecified type R19.7 and Dysuria R30.0 [facility] [address] [address] Oct, [facility] [address] [address] Sep, [facility] [address] [address] Sep, [facility] [address] [address] Sep, Anxiety F41.9 [facility] [address] [address] Sep, Cerebrovascular accident (CVA), unspecified mechanism I63.9 ; Mixed hyperlipidemia E78.2 ; Gastroesophageal reflux disease with esophagitis K21.0 and Anxiety F41.9 [facility] [id number] [place] [address] Sep, [address] [address] Aug, Chronic obstructive pulmonary disease, unspecified J44.9 ; Asthma J45.909 ; Nausea R11.0 ; Dysthymic disorder F34.1 ; Cerebrovascular accident (CVA), unspecified mechanism I63.9 and Rheumatoid arthritis M06.9 [facility] [id number] [place] [address] Aug, Nausea R11.0 ; Encounter for immunization Z23 ; Sleep apnea in adult G47.30 ; Rheumatoid arthritis involving multiple sites, unspecified rheumatoid factor presence M06.9 ; Generalized anxiety disorder F41.1 ; Dysthymic disorder F34.1 and Asthma J45.909 [facility] [id number] [place] [address] Jul, [facility] [address] [place] [address] May, ADHD (attention deficit hyperactivity disorder), combined type F90.2 ; Generalized anxiety disorder F41.1 and Persistent depressive disorder F34.1 [facility] [id number] [place] [address] May, Cerebrovascular accident (CVA), unspecified mechanism I63.9 [facility] [address] [address] Apr, Mixed hyperlipidemia E78.2 and Cerebrovascular accident (CVA), unspecified mechanism I63.9 [facility] [address] [address] Apr, Generalized anxiety disorder F41.1 [facility] [address] [address] Apr, Bronchitis J40 and Tobacco use Z72.0 [facility] [address] [address] Apr, Mixed hyperlipidemia E78.2 [facility] [address] [address] Apr, Other long term care phlebotomist (current) drug therapy Z79.899 [facility] [address] [address] Apr, [facility] [address] [address] Apr, Generalized anxiety disorder F41.1 [facility] [address] [address] Apr, Obstructive sleep apnea G47.33 and Hyperinsulinemia E16.1 [facility] [address] [address] Apr, ADHD (attention deficit hyperactivity disorder), combined type F90.2 ; Generalized anxiety disorder F41.1 and Persistent depressive disorder F34.1 [facility] [address] [place] [address] Mar, [facility] [id number] [place] [address] Mar, Generalized anxiety disorder F41.1 [facility] [id number] [place] [address] Mar, Tarsal tunnel syndrome of both lower extremities G57.53 [facility] [id number] [place] [address] February, [facility] [id number] [place] [address] February, [facility] [id number] [place] [address] February, Asthma J45.909 [facility] [id number] [place] [address] February, Generalized anxiety disorder F41.1 [facility] [id number] [place] [address] February, Hypoxemia R09.02 ; Hyperglycemia R73.9 ; Rheumatoid arthritis M06.9 and Generalized anxiety disorder F41.1 [facility] [id number] [place] [address] February, [facility] [id number] [place] [address] Jan, Chronic obstructive pulmonary disease, unspecified J44.9 [facility] [id number] [place] [address] Jan, Chronic pain syndrome G89.4 [facility] [id number] [place] [address] Jan, Hypoxemia R09.02 [facility] [id number] [place] [address] Jan, [facility] [id number] [place] [address] Jan, Chronic obstructive pulmonary disease, unspecified J44.9 ; Hypoxemia R09.02 ; Other insomnia G47.09 and Left anterior shoulder pain M25.512 [facility] [id number] [place] [address] Jan, Numbness in feet R20.0 and Neuropathy G62.9 [facility] [address] [address] Jan, [facility] [address] [address] Dec, Acute pain of left shoulder M25.512 [facility] [address] [address] Dec, Acute pain of left shoulder M25.512 [facility] [id number] [place] [address] Dec, Generalized anxiety disorder F41.1 [facility] [id number] [place] [address] Dec, Generalized anxiety disorder F41.1 [facility] [id number] [place] [address] Nov, ADHD (attention deficit hyperactivity disorder), combined type F90.2 ; Generalized anxiety disorder F41.1 and Persistent depressive disorder F34.1 [facility] [id number] [place] [address] Nov, Acute pain of left shoulder M25.512 [facility] [id number] [place] [address] Nov, ADHD (attention deficit hyperactivity disorder), combined type F90.2 ; Generalized anxiety disorder F41.1 and Persistent depressive disorder F34.1 [facility] [id number] [place] [address] Nov, Chronic pain syndrome G89.4 [facility] [address], [place] [address] Nov, Chronic pain syndrome G89.4 [facility] [id number] [place] [address] Nov, Acute pain of left shoulder M25.512 [facility] [address] [place] [address] Nov, Generalized anxiety disorder F41.1 [facility] [id number] [place] [address] Nov, Acute pain of left shoulder M25.512 [facility] [id number] [place] [address] Nov, ADHD (attention deficit hyperactivity disorder), combined type F90.2 ; Generalized anxiety disorder F41.1 and Persistent depressive disorder F34.1 [facility] [id number] [place] [address] Nov, Acute pain of left shoulder M25.512 ; Generalized anxiety disorder F41.1 ; Chronic pain syndrome G89.4 ; Hyperinsulinemia E16.1 ; Pain of left foot M79.672 and Pain in right foot M79.671 [facility] [address], [place] [address] Oct, ADHD (attention deficit hyperactivity disorder), combined type F90.2 ; Generalized anxiety disorder F41.1 and Dysthymic disorder F34.1 [facility] [address], [place] [address] Sep, [facility] [id number] [place] [address] Sep, [facility] [id number] [place] [address] Sep, Routine gynecological examination V72.31 ; Cervical cancer screening Z12.4 ; Breast cancer screening Z12.39 ; Colon cancer screening Z12.11 ; Hypokalemia E87.6 ; Herpes simplex type 1 infection B00.9 and Abscess of right axilla L02.411 [facility] [id number] [place] [address] Sep, [facility] [id number] [place] [address] Sep, ADHD (attention deficit hyperactivity disorder), combined type F90.2 ; Generalized anxiety disorder F41.1 and Dysthymic disorder F34.1 [facility] [id number] [place] [address] Aug, [facility] [address] [address] Aug, [facility] [address] [address] Aug, Generalized anxiety disorder F41.1 [facility] [address] [address] Aug, ADHD (attention deficit hyperactivity disorder), combined type F90.2 ; Generalized anxiety disorder F41.1 and Dysthymic disorder F34.1 [facility] [id number] [place] [address] Jul, Chronic pain syndrome G89.4 ; Hypertension I10 ; Hypokalemia E87.6 ; Asthma J45.909 and Nausea R11.0 [facility] [id number] [place] [address] Jul, [facility] [id number] [place] [address] Jul, Asthma J45.909 [facility] [id number] [place] [address] Jul, ADHD (attention deficit hyperactivity disorder), combined type F90.2 ; Generalized anxiety disorder F41.1 and Dysthymic disorder F34.1 [facility] [id number] [place] [address] Jul, [facility] [address] [address] Jul, Hypertension I10 ; Arteriosclerotic coronary artery disease I25.10 ; Mixed hyperlipidemia E78.2 ; Other long term care phlebotomist (current) drug therapy Z79.899 and Hyperglycemia R73.9 [facility] [address] [address] 16 Jun, 2016 Hypokalemia E87.6 and Hyperglycemia R73.9 [facility] [address] [address] 14 Jun, 2016 [place] [address] [address] Jun, Abnormal kidney function N28.9 [facility] [address] [address] Jun, [facility] [address] [address] Jun, ADHD (attention deficit hyperactivity disorder), combined type F90.2 ; Generalized anxiety disorder F41.1 and Dysthymic disorder F34.1 [facility] [id number] [place] [address] Jun, Generalized anxiety disorder F41.1 and Dysthymic disorder F34.1 [facility] [id number] [place] [address] Jun, Hypokalemia E87.6 [facility] [address] [address] May, Hypokalemia E87.6 ; Vertigo R42 and Hyperinsulinemia E16.1 [facility] [id number] [place] [address] May, [facility] [facility] [address] [address] May, Abnormal kidney function N28.9 ; Hyperinsulinemia E16.1 and Nausea R11.0 [facility] [address] [address] May, Hypokalemia E87.6 ; Nausea R11.0 ; Epigastric pain R10.13 ; Dehydration E86.0 ; Diaphoresis R61 and Right arm pain M79.601 [facility] [address] [address] May, [facility] [address] [address] May, Hypokalemia E87.6 [facility] [address] [address] May, Hypokalemia E87.6 [facility] [facility] [address] [address] Apr, [facility] [address] [address] Apr, ADHD (attention deficit hyperactivity disorder), combined type F90.2 ; Generalized anxiety disorder F41.1 and Dysthymic disorder F34.1 [facility] [id number] [place] [address] Apr, Right arm pain M79.601 and Hyperinsulinemia E16.1 [facility] [id number] [place] [address] Mar, [facility] [address] [address] Mar, [facility] [address] [address] Mar, Hyperinsulinemia E16.1 ; Hyperlipidemia, unspecified hyperlipidemia type E78.5 ; Central venous catheter in place Z78.9 ; Generalized anxiety disorder F41.1 and Urinary tract infection, site not specified N39.0 [facility] [address] [place] [address] Mar, ADHD (attention deficit hyperactivity disorder), combined type F90.2 ; Generalized anxiety disorder F41.1 and Dysthymic disorder F34.1 [facility] [id number] [place] [address] February, ADHD (attention deficit hyperactivity disorder), combined type F90.2 ; Generalized anxiety disorder F41.1 and Dysthymic disorder F34.1 [facility] [id number] [place] [address] February, [facility] [id number] [place] [address] February, [facility] [id number] [place] [address] February, Hypertension I10 and Weight gain R63.5 [facility] [id number] [place] [address] February, Major depressive disorder, recurrent, moderate F33.1 and Generalized anxiety disorder F41.1 [facility] [id number] [place] [address] February, ADHD (attention deficit hyperactivity disorder), combined type F90.2 ; Generalized anxiety disorder F41.1 and Dysthymic disorder F34.1 [facility] [id number] [place] [address] February, [facility] [id number] [place] [address] February, Asthma J45.909 ; Weight gain R63.5 ; Hypertension I10 ; Rheumatoid arthritis M06.9 and Chronic pain syndrome G89.4 [facility] [id number] [place] [address] Jan, ADHD (attention deficit hyperactivity disorder), combined type F90.2 ; Generalized anxiety disorder F41.1 and Dysthymic disorder F34.1 [facility] [address], [place] [address] Dec, ADHD (attention deficit hyperactivity disorder), combined type F90.2 ; Generalized anxiety disorder F41.1 and Dysthymic disorder F34.1 [facility] [address], [place] [address] Dec, [facility] [id number] [place] [address] Nov, [facility] [id number] [place] [address], [place] [address] Nov, [facility] [id number] [place] [address], [place] [address] Nov, [facility] [id number] [place] [address] Nov, [facility] [id number] [place] [address] Oct, [facility] [id number] [place] [address] Oct, [facility] [id number] [place] [address] Oct, [facility] [address], [place] [address] Sep, [facility] [address], [place] [address] Sep, [facility] [address], [place] [address] Sep, Agoraphobia with panic disorder F40.01 ; Attention-deficit hyperactivity disorder, combined type F90.2 and Dysthymic disorder F34.1 [facility] [address], [place] [address] Aug, [facility] [id number] [place] [address] Aug, [facility] [address], [place] [address] Aug, [facility] [id number] [place] [address] Aug, Dysthymic disorder F34.1 ; Generalized anxiety disorder F41.1 and ADHD (attention deficit hyperactivity disorder), combined type F90.2 [facility] [id number] [place] [address] Aug, ADHD (attention deficit hyperactivity disorder), combined type F90.2 ; Generalized anxiety disorder F41.1 and Dysthymic disorder F34.1 [facility] [id number] [place] [address] Jul, Urinary tract infection, site not specified N39.0 ; Hypotension, unspecified I95.9 and Breast cancer screening Z12.39 [facility] [id number] [place] [address] Jul, [facility] [id number] [place] [address] Jul, [facility] [id number] [place] [address] Jul, Urinary tract infection, site not specified N39.0 ; Nausea R11.0 ; Gastroenteritis K52.9 ; Renal failure N19 and Other hypotension I95.89 [facility] [id number] [place] [phone] Jul, [facility] [id number] [place] [phone] Jul, [facility] [id number] [place] [phone] Jul, [facility] [id number] [place] [phone] Jun, [facility] [address] [place] [phone] Jun, Major depression in partial remission 296.25 ; Generalized anxiety disorder 300.02 and ADHD, predominantly inattentive type 314.01 [place] [id number] [place] [address] May, [facility] [id number] [place] [address] Apr, Major depressive disorder, recurrent episode, severe, without mention of psychotic behavior 296.33 ; Agoraphobia with panic disorder 300.21 and Generalized anxiety disorder 300.02 [address] [address] Apr, ADHD (attention deficit hyperactivity disorder), combined type 314.01 ; Generalized anxiety disorder 300.02 and Dysthymic disorder 300.[address] [address] Apr, CAD (coronary artery disease) 414.00 ; HTN (hypertension) 401.9 and Tobacco use 305.1 [address] [address] [id number] [place] [address] Apr, [address] [address] Mar, ADHD (attention deficit hyperactivity disorder), combined type 314.01 ; Generalized anxiety disorder 300.02 ; Dysthymic disorder 300.4 ; No condition on [place] II V71.09 ; Rheumatoid arthritis 714.0 ; Incontinence 788.30 ; Irritable bowel syndrome 564.1 ; Osteoporosis 733.00 and Chronic pain 338.29 [place] [id number] [place] [address] Mar, Agoraphobia with panic disorder 300.21 and Major depressive disorder, recurrent episode, moderate 296.32 [address] [id number] [place] [address] Mar, [facility] [address] [address] February, [facility] [address] [address] February, Agoraphobia with panic disorder 300.21 and Major depressive disorder, recurrent episode, moderate 296.32 [facility] [id number] [place] [address] February, [facility] [id number] [place] [address] Jan, [facility] [address] [facility] [id number], [place] [address] Jan, [facility] [id number] [place] [address] Dec, [facility] [address], [place] [address] Dec, [facility] [id number] [place] [address] Dec, [facility] [address] [id number] [address] Dec, [facility] [address] [address] Dec, [facility] [address], [place] [address] Dec, [facility] [address], [place] [address] Nov, [facility] [address] [id number], [place] [address] Nov, [facility] [address], [place] [address] Nov, [facility] [address], [place] [address] Nov, [facility] [id number] [address] Nov, 2014 [facility] [place] [facility] [address] [id number] [place] [address] 17 Nov, 2014 [facility] [place] [facility] [address] [id number] [place] [address] Nov, 2014 [facility] [place] [facility] [address] [id number] [place] [address] Nov, 2014 [facility] [place] [facility] [address] [id number] [place] [address] Oct, [facility] [place] [facility] [address] [id number] [place] [address] Oct, [facility] [place] [facility] [address] [id number] [place] [address] Oct, [facility] [place] [facility] [address] [id number] [place] [address] Oct, [facility] [place] [facility] [address] [id number] [place] [address] Oct, [facility] [place] [facility] [address] [id number] [place] [address] Oct, [facility] [place] [facility] [address] [id number] [place] [address] Sep, [facility] [place] [facility] [address] [id number] [place] [address] Sep, [facility] [place] [facility] [address] [id number] [place] [address] Sep, [facility] [place] [facility] [address] [id number] [place] [address] Sep, [facility] [place] [facility] [address] [id number] [place] [address] Sep, [facility] [place] [facility] [address] [id number] [place] [address] Sep, [facility] [place] [facility] [address] [id number] [place] [address] Sep, [facility] [place] [facility] [address] [id number] [place] [address] Aug, [facility] [place] [facility] [address] [id number] [place] [address] Aug, [facility] [place] [facility] [address] [id number] [place] [address] Aug, [facility] [place] [facility] [address] [id number] [place] [address] Aug, [facility] [place] [facility] [address] [id number] [place] [address] Aug, [facility] [place] [facility] [address] [id number] [place] [address] Aug, [facility] [place] [facility] [address] [id number] [place] [address] Jul, [facility] [place] [facility] [address] [id number] [place] [address] Jul, [facility] [place] [facility] [address] [id number] [place] [address] Jul, [facility] [place] [facility] [address] [id number] [place] [address] Jul, [facility] [place] [facility] [address] [id number], [place] [address] Jul, [facility] [place] [facility] [address] [id number] [place] [address] Jul, [facility] [place] [facility] [address] [id number] [place] [address] Jun, [facility] [place] [facility] [address] [id number] [place] [address] Jun, [facility] [place] [facility] [address] [id number], [place] [address] May, [facility] [place] [facility] [address] [id number] [place] [address] May, [facility] [place] [facility] [address] [id number] [place] [address] Apr, [facility] [place] [facility] [address] [id number] [place] [address] Apr, [facility] [place] [facility] [address] [id number] [place] [address] Apr, [facility] [place] [facility] [address] [id number] [place] [address] Apr, [facility] [place] [facility] [address] [id number] [place] [address] Mar, [facility] [place] [facility] [address] [id number] [place] [address] Mar, [facility] [place] [facility] [address] [id number] [place] [address] Mar, [facility] [place] [facility] [address] [id number] [place] [address] Mar, [facility] [place] [facility] [address] [id number] [place] [address] February, [facility] [place] [facility] [address] [id number] [place] [address] February, [facility] [place] [facility] [address] [id number] [place] [address] February, [facility] [place] [facility] [address] [id number] [place] [address] February, [facility] [place] [facility] [address] [id number] [place] [address] February, [facility] [place] [facility] [address] [id number] [place] [address] February, [facility] [place] [facility] [address] [id number] [place] [address] Jan, [facility] [address] [id number] [place] [address] Jan, [facility] [place] [facility] [address] [id number] [place] [address] Dec, [facility] [place] [facility] [address] [id number] [place] [address] Dec, [facility] [place] [facility] [address] [id number] [place] [address] Nov, [facility] [place] [facility] [address] [id number] [place] [address] Nov, [facility] [place] [facility] [address] [id number] [place] [address] Oct, [facility] [place] [facility] [address] [id number] [place] [address] Oct, [facility] [address] [id number] [place] [address] Oct, [facility] [place] [facility] [address] [id number] [place] [address] Oct, [facility] [address] [id number] [place] [address] Sep, [facility] [place] [facility] [address] [id number] [place] [address] Sep, [facility] [place] [facility] [address] [id number] [place] [address] Sep, [facility] [place] [facility] [address] [id number] [place] [address] Sep, [facility] [place] [facility] [address] [id number] [place] [address] Sep, [facility] [place] [facility] [address] [id number] [place] [address] Sep, [facility] [place] [facility] [address] [id number] [place] [address] Sep, [facility] [place] [facility] [address] [id number] [place] [address] Sep, [facility] [place] [facility] [address] [id number] [place] [address] Aug, [facility] [place] [facility] [address] [id number] [place] [address] Aug, [facility] [place] [facility] [address] [id number] [place] [address] Aug, [facility] [place] [facility] [address] [id number] [place] [address] Aug, [facility] [place] [facility] [address] [id number] [place] [address] Aug, [facility] [place] [facility] [address] [id number] [place] [address] Aug, [facility] [place] [facility] [address] [id number] [place] [address] Aug, [facility] [place] [facility] [address] [id number], [place] [address] Aug, [facility] [place] [facility] [address] [id number], [place] [address] Aug, [facility] [place] [facility] [address] [id number], [place] [address] Jul, [facility] [place] [facility] [address] [id number] [place] [address] Jun, [facility] [place] [facility] [address] [id number], [place] [address] May, [facility] [place] [facility] [address] [id number] [place] [address] May, [facility] [place] [facility] [address] [id number] [place] [address] May, [facility] [address] [id number] [place] [address] Apr, [facility] [place] [facility] [address] [id number] [place] [address] Mar, [facility] [address] [id number] [place] [address] February, [facility] [place] [facility] [address] [id number] [place] [address] Oct, [facility] [address] [id number] [place] [address] Oct, [facility] [place] [facility] [address] [id number] [place] [address] Oct, [facility] [address] [id number] [place] [address] Oct, [facility] [address] [id number] [place] [address] Oct, [facility] [address] [id number] [place] [address] Oct, [facility] [address] [id number] [place] [address] Sep, [facility] [address] [id number] [place] [address] Sep, [facility] [place] [facility] [address] [id number] [place] [address] Aug, [facility] [place] [facility] [address] [id number] [place] [address] Aug, [facility] [place] [facility] [address] [id number] [place] [address] Jul, [facility] [address] [id number] [place] [address] Jul, [facility] [place] [facility] [address] [id number] [place] [address] Jul, [facility] [place] [facility] [address] [id number] [place] [address] Jul, [facility] [place] [facility] [address] [id number] [place] [address] Jul, [facility] [place] [facility] [address] [id number] [place] [address] Jul, [facility] [place] [facility] [address] [id number] [place] [address] Jul, [facility] [place] [facility] [address] [id number] [place] [address] Jul, [facility] [place] [facility] [address] [id number] [place] [address] Jun, [facility] [place] [facility] [address] [id number] [place] [address] Jun, [facility] [place] [facility] [address] [id number] [place] [address] May, [facility] [place] [facility] [address] [id number] [place] [address] Apr, [facility] [place] [facility] [address] [id number] [place] [address] Mar, [facility] [place] [facility] [address] [id number] [place] [address] Mar, [facility] [place] [facility] [address] [id number] [place] [address] Mar, [facility] [place] [facility] [address] [id number] [place] [address] Mar, [facility] [place] [facility] [address] [id number] [place] [address] Jan, [facility] [place] [facility] [address] [id number], [place] [address] Nov, [facility] [address] [id number] [place] [address] Nov, [facility] [place] [facility] [address] [id number] [place] [address] Nov, [facility] [address] [facility] [id number] [place] [address] Oct, [facility] [place] [facility] [address] [id number] [place] [address] Sep, [facility] [place] [facility] [address] [id number] [place] [address] Sep, [facility] [place] [facility] [address] [id number] [place] [address] Aug, [facility] [address] [facility] [id number] [place] [address] Aug, [facility] [place] [facility] [address] [facility] [id number] [place] [address] Aug, [facility] [address] [facility] [id number] [place] [address] Aug, [facility] [place] [facility] [address] [facility] [id number] [place] [address] Jul, [facility] [place] [facility] [address] [id number], [place] [address] May, [facility] [place] [facility] [address] [id number], [place] [address] Jan, [facility] [place] [facility] [address] [id number] [place] [address] Nov, [facility] [place] [facility] [address] [facility] [id number], [place] [address] Apr, [facility] [place] [facility] [address] [facility] [id number] [place] [address] Dec, [facility] [place] [facility] [address] [facility] [id number] [place] [address] 12 Nov, 2008 IMMUNIZATIONS No Known Immunizations SOCIAL HISTORY Never Assessed REASON FOR VISIT Requests return call PLAN OF CARE VITAL SIGNS MEDICATIONS Unknown Medications RESULTS No Results PROCEDURES No Known procedures INSTRUCTIONS MEDICATIONS ADMINISTERED No Known Medications MEDICAL (GENERAL) HISTORY Type Description Date Medical History Cardiovascular [id number]-Qttteucp, non-obstructive per (01/2011) Dr. Mendoza Medical History Stress test 03/07/13-Dr. Kelly Dietrich normal Medical History Hypertension Medical History Asthma Medical History Gastrointestinal Disorder--IBS, GERD, Hx of fatty liver Medical History Hernia 1978 Medical History Cervical dysplasia 02/16-Pap LGSIL/Dongola-mild dysplasia Medical History Hyperlipidemia Medical History Rheumatoid [...]
--- OUTSIDE RECORDS SUMMARY | 2019-05-22 07:48 | XMS REPORT ---
Author Author LORI SNOWDEN [facility] Address [address] [place] [address] Care Team Providers Care Cloud Subject Matter Expert Name Role Phone LORI SNOWDEN Unavailable PROBLEMS Type Condition ICD9-CM Code [id number] Code Onset Dates Condition Status SNOMED Code Problem ADHD (attention deficit hyperactivity disorder), combined type F90.2 Active 10049649 Problem Generalized anxiety disorder F41.1 Active 00542430 Problem Asthma J45.909 Active 562984238 Problem Hypertension I10 Active 51507529 Problem Chronic pain syndrome G89.4 Active 153089777 Problem Rheumatoid arthritis involving multiple sites, unspecified rheumatoid factor presence M06.9 Active 884792742 Problem Rheumatoid arthritis M06.9 Active 97500119 Problem Gastroesophageal reflux disease with esophagitis K21.0 Active 519786320 Problem Weight gain R63.5 Active 4333794 Problem Anxiety F41.9 Active 91480292 Problem Panic attacks F41.0 Active 133929759 Problem Irritable bowel syndrome with diarrhea K58.0 Active 092914745 Problem Paroxysmal atrial fibrillation I48.0 Active 982072430 Problem Unsteady gait R26.81 Active 99308300 Problem Hyperinsulinemia E16.1 Active 38718151 Problem Arteriosclerotic coronary artery disease I25.10 Active 49749485 Problem Mixed hyperlipidemia E78.2 Active 814766132 Problem Seasonal allergies J30.2 Active 796614883 Problem Mild episode of recurrent major depressive disorder F33.0 Active 198297799 Problem Chronic obstructive pulmonary disease, unspecified COPD type J44.9 Active 90287942 Problem Primary insomnia F51.01 Active 8423851 Problem Chronic obstructive pulmonary disease, unspecified J44.9 Active [id number] Problem Obstructive sleep apnea G47.33 Active 12046895 Problem Neuropathy G62.9 Active 042441747 Problem Other insomnia G47.09 Active 069793367 Problem Dysthymic disorder F34.1 Active 23914767 Problem Sleep apnea in adult G47.30 Active 99484226 Problem Other assisted (current) drug therapy Z79.899 Active 665217810 Problem Cerebrovascular accident (CVA), unspecified mechanism I63.9 Active 804126126 ALLERGIES No Information ENCOUNTERS Encounter Location Date Diagnosis [facility] [id number] [place] [address] Aug, [facility] [id number] [place] [address] Jul, Via [email or web address] [address] [place] [id number] Jul, [facility] [id number] [place] [address] Jul, Via [email or web address] [address] [place] [id number] Jul, Weakness R53.1 ; Paroxysmal atrial fibrillation I48.0 and Unsteady gait R26.81 [facility] [id number] [place] [address] Jul, Tobacco abuse Z72.0 [facility] [employer] [address] [place] [id number] Jun, History of acute respiratory failure Z87.09 ; Weight gain R63.5 and Tobacco abuse Z72.0 [facility] [id number] [place] [address] Jun, [facility] [id number] [place] [address] May, Primary insomnia F51.01 [facility] [id number] [place] [address] May, Mild episode of recurrent major depressive disorder F33.0 [facility] [id number] [place] [address] May, [facility] [id number] [place] [address] May, Chronic obstructive pulmonary disease, unspecified COPD type J44.9 ; Primary insomnia F51.01 ; Fatigue, unspecified type R53.83 and Weight gain R63.5 [facility] [id number] [place] [address] May, Thrush B37.0 [facility] [id number] [place] [address] May, Mild episode of recurrent major depressive disorder F33.0 and Generalized anxiety disorder F41.1 [facility] [address] [address] May, Thrush B37.0 [facility] [address] [address] Apr, Cough R05 [facility] [address] [address] Mar, Mild episode of recurrent major depressive disorder F33.0 [facility] [address] [address] Mar, Mild episode of recurrent major depressive disorder F33.0 and Generalized anxiety disorder F41.1 [facility] [id number] [place] [address] Mar, Seasonal allergies J30.2 [facility] [id number] [place] [address] Mar, Seasonal allergies J30.2 [facility] [id number] [place] [address] February, Generalized anxiety disorder F41.1 [facility] [id number] [place] [address] February, Cough R05 and Seasonal allergies J30.2 [facility] [id number] [place] [address] February, Generalized anxiety disorder F41.1 and Mild episode of recurrent major depressive disorder F33.0 [facility] [id number] [address] February, 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 ; Anxiety F41.9 ; Panic attacks F41.0 and Irritable bowel syndrome with diarrhea K58.0 [facility] [address], [place] [address] February, [facility] [id number] [place] [address] Jan, Mixed hyperlipidemia E78.2 [facility] [id number] [place] [address] Jan, [facility] [id number] [place] [address] Jan, [facility] [address], [place] [address] Jan, [facility] [id number] [place] [address] Jan, [facility] [address], [place] [address] Dec, [facility] [address], [place] [address] Dec, [facility] [address], [place] [address] Dec, [facility] [address], [place] [address] Nov, Dysthymic disorder F34.1 [facility] [address], [place] [address] Oct, [facility] [address], [place] [address] Oct, [facility] [address], [place] [address] Oct, [facility] [id number] [place] [address] Oct, Diarrhea, unspecified type R19.7 and Dysuria R30.0 [facility] [address] [address] Oct, [facility] [address] [address] Sep, [facility] [place] [address] [address] Sep, [facility] [address] [address] Sep, Anxiety F41.9 [facility] [address] [address] Sep, Cerebrovascular accident (CVA), unspecified mechanism I63.9 ; Mixed hyperlipidemia E78.2 ; Gastroesophageal reflux disease with esophagitis K21.0 and Anxiety F41.9 [facility] [id number] [place] [address] Sep, [address] [address] Aug, Chronic obstructive pulmonary disease, unspecified J44.9 ; Asthma J45.909 ; Nausea R11.0 ; Dysthymic disorder F34.1 ; Cerebrovascular accident (CVA), unspecified mechanism I63.9 and Rheumatoid arthritis M06.9 [facility] [id number] [place] [address] Aug, Nausea R11.0 ; Encounter for immunization Z23 ; Sleep apnea in adult G47.30 ; Rheumatoid arthritis involving multiple sites, unspecified rheumatoid factor presence M06.9 ; Generalized anxiety disorder F41.1 ; Dysthymic disorder F34.1 and Asthma J45.909 [facility] [id number] [place] [address] Jul, [facility] [address] [place] [address] May, ADHD (attention deficit hyperactivity disorder), combined type F90.2 ; Generalized anxiety disorder F41.1 and Persistent depressive disorder F34.1 [facility] [id number] [place] [address] May, Cerebrovascular accident (CVA), unspecified mechanism I63.9 [facility] [address] [address] Apr, Mixed hyperlipidemia E78.2 and Cerebrovascular accident (CVA), unspecified mechanism I63.9 [facility] [address] [address] Apr, Generalized anxiety disorder F41.1 [facility] [address] [address] Apr, Bronchitis J40 and Tobacco use Z72.0 [facility] [address] [address] Apr, Mixed hyperlipidemia E78.2 [facility] [address] [address] Apr, 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 [facility] [address] [address] Apr, [facility] [address] [address] Apr, Generalized anxiety disorder F41.1 [facility] [address] [address] Apr, Obstructive sleep apnea G47.33 and Hyperinsulinemia E16.1 [facility] [address] [address] Apr, ADHD (attention deficit hyperactivity disorder), combined type F90.2 ; Generalized anxiety disorder F41.1 and Persistent depressive disorder F34.1 [facility] [address] [place] [address] Mar, [facility] [id number] [place] [address] Mar, Generalized anxiety disorder F41.1 [facility] [id number] [place] [address] Mar, Tarsal tunnel syndrome of both lower extremities G57.53 [facility] [id number] [place] [address] February, [facility] [id number] [place] [address] February, [facility] [id number] [place] [address] February, Asthma J45.909 [facility] [id number] [place] [address] February, Generalized anxiety disorder F41.1 [facility] [id number] [place] [address] February, Hypoxemia R09.02 ; Hyperglycemia R73.9 ; Rheumatoid arthritis M06.9 and Generalized anxiety disorder F41.1 [facility] [id number] [place] [address] February, [facility] [id number] [place] [address] Jan, Chronic obstructive pulmonary disease, unspecified J44.9 [facility] [id number] [place] [address] Jan, Chronic pain syndrome G89.4 [facility] [id number] [place] [address] Jan, Hypoxemia R09.02 [facility] [id number] [place] [address] Jan, [facility] [id number] [place] [address] Jan, Chronic obstructive pulmonary disease, unspecified J44.9 ; Hypoxemia R09.02 ; Other insomnia G47.09 and Left anterior shoulder pain M25.512 [facility] [id number] [place] [address] Jan, Numbness in feet R20.0 and Neuropathy G62.9 [facility] [address] [address] Jan, [facility] [address] [address] Dec, Acute pain of left shoulder M25.512 [facility] [address] [address] Dec, Acute pain of left shoulder M25.512 [facility] [id number] [place] [address] Dec, Generalized anxiety disorder F41.1 [facility] [id number] [place] [address] Dec, Generalized anxiety disorder F41.1 [facility] [id number] [place] [address] Nov, ADHD (attention deficit hyperactivity disorder), combined type F90.2 ; Generalized anxiety disorder F41.1 and Persistent depressive disorder F34.1 [facility] [id number] [place] [address] Nov, Acute pain of left shoulder M25.512 [facility] [id number] [place] [address] Nov, ADHD (attention deficit hyperactivity disorder), combined type F90.2 ; Generalized anxiety disorder F41.1 and Persistent depressive disorder F34.1 [facility] [id number] [place] [address] Nov, Chronic pain syndrome G89.4 [facility] [address], [place] [address] Nov, Chronic pain syndrome G89.4 [facility] [id number] [place] [address] Nov, Acute pain of left shoulder M25.512 [facility] [address] [place] [address] Nov, Generalized anxiety disorder F41.1 [facility] [address] [place] [address] Nov, Acute pain of left shoulder M25.512 [facility] [id number] [place] [address] Nov, ADHD (attention deficit hyperactivity disorder), combined type F90.2 ; Generalized anxiety disorder F41.1 and Persistent depressive disorder F34.1 [facility] [id number] [place] [address] Nov, Acute pain of left shoulder M25.512 ; Generalized anxiety disorder F41.1 ; Chronic pain syndrome G89.4 ; Hyperinsulinemia E16.1 ; Pain of left foot M79.672 and Pain in right foot M79.671 [facility] [address], [place] [address] Oct, ADHD (attention deficit hyperactivity disorder), combined type F90.2 ; Generalized anxiety disorder F41.1 and Dysthymic disorder F34.1 [facility] [address], [place] [address] Sep, [facility] [id number] [place] [address] Sep, [facility] [address] [place] [address] Sep, Routine gynecological examination V72.31 ; Cervical cancer screening Z12.4 ; Breast cancer screening Z12.39 ; Colon cancer screening Z12.11 ; Hypokalemia E87.6 ; Herpes simplex type 1 infection B00.9 and Abscess of right axilla L02.411 [facility] [id number] [place] [address] Sep, [facility] [id number] [place] [address] Sep, ADHD (attention deficit hyperactivity disorder), combined type F90.2 ; Generalized anxiety disorder F41.1 and Dysthymic disorder F34.1 [facility] [id number] [place] [address] Aug, [facility] [address] [address] Aug, [facility] [address] [address] Aug, Generalized anxiety disorder F41.1 [facility] [address] [address] Aug, ADHD (attention deficit hyperactivity disorder), combined type F90.2 ; Generalized anxiety disorder F41.1 and Dysthymic disorder F34.1 [facility] [id number] [place] [address] Jul, Chronic pain syndrome G89.4 ; Hypertension I10 ; Hypokalemia E87.6 ; Asthma J45.909 and Nausea R11.0 [facility] [id number] [place] [address] Jul, [facility] [id number] [place] [address] Jul, Asthma J45.909 [facility] [id number] [place] [address] Jul, ADHD (attention deficit hyperactivity disorder), combined type F90.2 ; Generalized anxiety disorder F41.1 and Dysthymic disorder F34.1 [facility] [id number] [place] [address] Jul, [facility] [address] [address] Jul, Hypertension I10 ; Arteriosclerotic coronary artery disease I25.10 ; Mixed hyperlipidemia E78.2 ; 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 and Hyperglycemia R73.9 [facility] [address] [address] 16 Jun, 2016 Hypokalemia E87.6 and Hyperglycemia R73.9 [facility] [address] [address] 14 Jun, 2016 [place] [address] [address] Jun, Abnormal kidney function N28.9 [facility] [address] [address] Jun, [facility] [address] [address] Jun, ADHD (attention deficit hyperactivity disorder), combined type F90.2 ; Generalized anxiety disorder F41.1 and Dysthymic disorder F34.1 [facility] [id number] [place] [address] Jun, Generalized anxiety disorder F41.1 and Dysthymic disorder F34.1 [facility] [id number] [place] [address] Jun, Hypokalemia E87.6 [facility] [address] [address] May, Hypokalemia E87.6 ; Vertigo R42 and Hyperinsulinemia E16.1 [facility] [id number] [place] [address] May, [facility] [address] [address] May, Abnormal kidney function N28.9 ; Hyperinsulinemia E16.1 and Nausea R11.0 [facility] [address] [address] May, Hypokalemia E87.6 ; Nausea R11.0 ; Epigastric pain R10.13 ; Dehydration E86.0 ; Diaphoresis R61 and Right arm pain M79.601 [facility] [address] [address] May, [facility] [address] [address] May, Hypokalemia E87.6 [facility] [address] [address] May, Hypokalemia E87.6 [facility] [address] [address] Apr, [facility] [address] [address] Apr, ADHD (attention deficit hyperactivity disorder), combined type F90.2 ; Generalized anxiety disorder F41.1 and Dysthymic disorder F34.1 [facility] [id number] [place] [address] Apr, Right arm pain M79.601 and Hyperinsulinemia E16.1 [facility] [id number] [place] [address] Mar, [facility] [address] [address] Mar, [facility] [address] [address] Mar, Hyperinsulinemia E16.1 ; Hyperlipidemia, unspecified hyperlipidemia type E78.5 ; Central venous catheter in place Z78.9 ; Generalized anxiety disorder F41.1 and Urinary tract infection, site not specified N39.0 [facility] [address] [place] [address] Mar, ADHD (attention deficit hyperactivity disorder), combined type F90.2 ; Generalized anxiety disorder F41.1 and Dysthymic disorder F34.1 [facility] [id number] [place] [address] February, ADHD (attention deficit hyperactivity disorder), combined type F90.2 ; Generalized anxiety disorder F41.1 and Dysthymic disorder F34.1 [facility] [id number] [place] [address] February, [facility] [id number] [place] [address] February, [facility] [id number] [place] [address] February, Hypertension I10 and Weight gain R63.5 [facility] [id number] [place] [address] February, Major depressive disorder, recurrent, moderate F33.1 and Generalized anxiety disorder F41.1 [facility] [id number] [place] [address] February, ADHD (attention deficit hyperactivity disorder), combined type F90.2 ; Generalized anxiety disorder F41.1 and Dysthymic disorder F34.1 [facility] [id number] [place] [address] February, [facility] [id number] [place] [address] February, Asthma J45.909 ; Weight gain R63.5 ; Hypertension I10 ; Rheumatoid arthritis M06.9 and Chronic pain syndrome G89.4 [facility] [id number] [place] [address] Jan, ADHD (attention deficit hyperactivity disorder), combined type F90.2 ; Generalized anxiety disorder F41.1 and Dysthymic disorder F34.1 [facility] [address], [place] [address] Dec, ADHD (attention deficit hyperactivity disorder), combined type F90.2 ; Generalized anxiety disorder F41.1 and Dysthymic disorder F34.1 [facility] [address], [place] [address] Dec, [facility] [id number] [place] [address] Nov, [facility] [id number] [place] [address], [place] [address] Nov, [facility] [id number] [place] [address], [place] [address] Nov, [facility] [id number] [place] [address] Nov, [facility] [id number] [place] [address] Oct, [facility] [id number] [place] [address] Oct, [facility] [id number] [place] [address] Oct, [facility] [address], [place] [address] Sep, [facility] [address], [place] [address] Sep, [facility] [address], [place] [address] Sep, Agoraphobia with panic disorder F40.01 ; Attention-deficit hyperactivity disorder, combined type F90.2 and Dysthymic disorder F34.1 [facility] [address], [place] [address] Aug, [facility] [id number] [place] [address] Aug, [facility] [address], [place] [address] Aug, [facility] [id number] [place] [address] Aug, Dysthymic disorder F34.1 ; Generalized anxiety disorder F41.1 and ADHD (attention deficit hyperactivity disorder), combined type F90.2 [facility] [id number] [place] [address] Aug, ADHD (attention deficit hyperactivity disorder), combined type F90.2 ; Generalized anxiety disorder F41.1 and Dysthymic disorder F34.1 [facility] [id number] [place] [address] Jul, Urinary tract infection, site not specified N39.0 ; Hypotension, unspecified I95.9 and Breast cancer screening Z12.39 [facility] [id number] [place] [address] Jul, [facility] [id number] [place] [address] Jul, [facility] [id number] [place] [phone] Jul, Urinary tract infection, site not specified N39.0 ; Nausea R11.0 ; Gastroenteritis K52.9 ; Renal failure N19 and Other hypotension I95.89 [facility] [id number] [place] [phone] Jul, [facility] [id number] [place] [id number] Jul, [facility] [id number] [place] [id number] Jul, [facility] [id number] [place] [phone] Jun, [facility] [address] [place] [address] Jun, Major depression in partial remission 296.25 ; Generalized anxiety disorder 300.02 and ADHD, predominantly inattentive type 314.01 [facility] [id number] [place] [phone] May, [facility] [id number] [place] [phone] Apr, Major depressive disorder, recurrent episode, severe, without mention of psychotic behavior 296.33 ; Agoraphobia with panic disorder 300.21 and Generalized anxiety disorder 300.[address] [place] [address] [address] Apr, ADHD (attention deficit hyperactivity disorder), combined type 314.01 ; Generalized anxiety disorder 300.02 and Dysthymic disorder 300.[address] [address] Apr, CAD (coronary artery disease) 414.00 ; HTN (hypertension) 401.9 and Tobacco use 305.1 [place] [id number] [place] [address] Apr, [address] [address] Mar, ADHD (attention deficit hyperactivity disorder), combined type 314.01 ; Generalized anxiety disorder 300.02 ; Dysthymic disorder 300.4 ; No condition on [place] V71.09 ; Rheumatoid arthritis 714.0 ; Incontinence 788.30 ; Irritable bowel syndrome 564.1 ; Osteoporosis 733.00 and Chronic pain 338.29 [place] [address] [place] [id number] [place] [address] Mar, Agoraphobia with panic disorder 300.21 and Major depressive disorder, recurrent episode, moderate 296.32 [place] [id number] [place] [address] Mar, [facility] [address] [address] February, [facility] [id number] [address] February, Agoraphobia with panic disorder 300.21 and Major depressive disorder, recurrent episode, moderate 296.32 [facility] [id number] [place] [address] February, [facility] [id number] [place] [address] Jan, [facility] [address] [facility] [id number] [address] Jan, [facility] [id number] [place] [address] Dec, [facility] [id number], [place] [address] Dec, [facility] [id number] [place] [address] Dec, [facility] [id number] [address] Dec, [facility] [id number], [place] [address] Dec, [facility] [id number], [place] [address] Dec, [facility] [id number], [place] [address] Nov, [facility] [id number] [address] Nov, [facility] [id number], [place] [address] Nov, [facility] [id number], [place] [address] Nov, [facility] [id number] [place] [address] Nov, 2014 [facility] [place] [facility] [address] [id number] [place] [address] 17 Nov, 2014 [facility] [place] [facility] [address] [id number] [place] [address] Nov, 2014 [facility] [place] [facility] [address] [id number] [place] [address] Nov, 2014 [facility] [place] [facility] [address] [id number] [place] [address] Oct, [facility] [place] [facility] [address] [id number] [place] [address] Oct, [facility] [place] [facility] [address] [id number] [place] [address] Oct, [facility] [place] [facility] [address] [id number] [place] [address] Oct, [facility] [place] [facility] [address] [id number] [place] [address] Oct, [facility] [place] [facility] [address] [id number] [place] [address] Oct, [facility] [place] [facility] [address] [id number] [place] [address] Sep, [facility] [place] [facility] [address] [id number] [place] [address] Sep, [facility] [place] [facility] [address] [id number] [place] [address] Sep, [facility] [place] [facility] [address] [id number] [place] [address] Sep, [facility] [place] [facility] [address] [id number] [place] [address] Sep, [facility] [place] [facility] [address] [id number] [place] [address] Sep, [facility] [place] [facility] [address] [id number] [place] [address] Sep, [facility] [place] [facility] [address] [id number] [place] [address] Aug, [facility] [place] [facility] [address] [id number] [place] [address] Aug, [facility] [place] [facility] [address] [id number] [place] [address] Aug, [facility] [place] [facility] [address] [id number] [place] [address] Aug, [facility] [place] [facility] [address] [id number] [place] [address] Aug, [facility] [place] [facility] [address] [id number] [place] [address] Aug, [facility] [place] [facility] [address] [id number] [place] [address] Jul, [facility] [place] [facility] [address] [id number] [place] [address] Jul, [facility] [place] [facility] [address] [id number] [place] [address] Jul, [facility] [place] [facility] [address] [id number] [place] [address] Jul, [facility] [place] [facility] [address] [id number], [place] [address] Jul, [facility] [place] [facility] [address] [id number] [place] [address] Jul, [facility] [place] [facility] [address] [id number] [place] [address] Jun, [facility] [place] [facility] [address] [id number] [place] [address] Jun, [facility] [place] [facility] [address] [id number], [place] [address] May, [facility] [place] [facility] [address] [id number] [place] [address] May, [facility] [place] [facility] [address] [id number] [place] [address] Apr, [facility] [place] [facility] [address] [id number] [place] [address] Apr, [facility] [place] [facility] [address] [id number] [place] [address] Apr, [facility] [place] [facility] [address] [id number] [place] [address] Apr, [facility] [place] [facility] [address] [id number] [place] [address] Mar, [facility] [place] [facility] [address] [id number] [place] [address] Mar, [facility] [place] [facility] [address] [id number] [place] [address] Mar, [facility] [place] [facility] [address] [id number] [place] [address] Mar, [facility] [place] [facility] [address] [id number] [place] [address] February, [facility] [place] [facility] [address] [id number] [place] [address] February, [facility] [place] [facility] [address] [id number] [place] [address] February, [facility] [place] [facility] [address] [id number] [place] [address] February, [facility] [place] [facility] [address] [id number] [place] [address] February, [facility] [place] [facility] [address] [id number] [place] [address] February, [facility] [place] [facility] [address] [id number] [place] [address] Jan, [facility] [address] [id number] [place] [address] Jan, [facility] [place] [facility] [address] [id number] [place] [address] Dec, [facility] [place] [facility] [address] [id number] [place] [address] Dec, [facility] [place] [facility] [address] [id number] [place] [address] Nov, [facility] [place] [facility] [address] [id number] [place] [address] Nov, [facility] [place] [facility] [address] [id number] [place] [address] Oct, [facility] [place] [facility] [address] [id number] [place] [address] Oct, [facility] [address] [id number] [place] [address] Oct, [facility] [place] [facility] [address] [id number] [place] [address] Oct, [facility] [address] [id number] [place] [address] Sep, [facility] [place] [facility] [address] [id number] [place] [address] Sep, [facility] [place] [facility] [address] [id number] [place] [address] Sep, [facility] [place] [facility] [address] [id number] [place] [address] Sep, [facility] [place] [facility] [address] [id number] [place] [address] Sep, [facility] [place] [facility] [address] [id number] [place] [address] Sep, [facility] [place] [facility] [address] [id number] [place] [address] Sep, [facility] [place] [facility] [address] [id number] [place] [address] Sep, [facility] [place] [facility] [address] [id number] [place] [address] Aug, [facility] [place] [facility] [address] [id number] [place] [address] Aug, [facility] [place] [facility] [address] [id number] [place] [address] Aug, [facility] [place] [facility] [address] [id number] [place] [address] Aug, [facility] [place] [facility] [address] [id number] [place] [address] Aug, [facility] [place] [facility] [address] [id number] [place] [address] Aug, [facility] [place] [facility] [address] [id number] [place] [address] Aug, [facility] [place] [facility] [address] [id number], [place] [address] Aug, [facility] [place] [facility] [address] [id number], [place] [address] Aug, [facility] [place] [facility] [address] [id number], [place] [address] Jul, [facility] [place] [facility] [address] [id number] [place] [address] Jun, [facility] [place] [facility] [address] [id number], [place] [address] May, [facility] [place] [facility] [address] [id number] [place] [address] May, [facility] [place] [facility] [address] [id number] [place] [address] May, [facility] [address] [id number] [place] [address] Apr, [facility] [place] [facility] [address] [id number] [place] [address] Mar, [facility] [address] [id number] [place] [address] February, [facility] [place] [facility] [address] [id number] [place] [address] Oct, [facility] [address] [id number] [place] [address] Oct, [facility] [place] [facility] [address] [id number] [place] [address] Oct, [facility] [address] [id number] [place] [address] Oct, [facility] [address] [id number] [place] [address] Oct, [facility] [address] [id number] [place] [address] Oct, [facility] [address] [id number] [place] [address] Sep, [facility] [address] [id number] [place] [address] Sep, [facility] [place] [facility] [address] [id number] [place] [address] Aug, [facility] [place] [facility] [address] [id number] [place] [address] Aug, [facility] [place] [facility] [address] [id number] [place] [address] Jul, [facility] [address] [id number] [place] [address] Jul, [facility] [place] [facility] [address] [id number] [place] [address] Jul, [facility] [place] [facility] [address] [id number] [place] [address] Jul, [facility] [place] [facility] [address] [id number] [place] [address] Jul, [facility] [place] [facility] [address] [id number] [place] [address] Jul, [facility] [place] [facility] [address] [id number] [place] [address] Jul, [facility] [place] [facility] [address] [id number] [place] [address] Jul, [facility] [place] [facility] [address] [id number] [place] [address] Jun, [facility] [place] [facility] [address] [id number] [place] [address] Jun, [facility] [place] [facility] [address] [id number] [place] [address] May, [facility] [place] [facility] [address] [id number] [place] [address] Apr, [facility] [place] [facility] [address] [id number] [place] [address] Mar, [facility] [place] [facility] [address] [id number] [place] [address] Mar, [facility] [place] [facility] [address] [id number] [place] [address] Mar, [facility] [place] [facility] [address] [id number] [place] [address] Mar, [facility] [place] [facility] [address] [id number] [place] [address] Jan, [facility] [place] [facility] [address] [id number], [place] [address] Nov, [facility] [address] [id number] [place] [address] Nov, [facility] [place] [facility] [address] [id number] [place] [address] Nov, [facility] [address] [facility] [id number] [place] [address] Oct, [facility] [place] [facility] [address] [id number] [place] [address] Sep, [facility] [place] [facility] [address] [id number] [place] [address] Sep, [facility] [place] [facility] [address] [id number] [place] [address] Aug, [facility] [address] [facility] [id number] [place] [address] Aug, [facility] [place] [facility] [address] [facility] [id number] [place] [address] Aug, [facility] [address] [facility] [id number] [place] [address] Aug, [facility] [place] [facility] [address] [facility] [id number] [place] [address] Jul, [facility] [place] [facility] [address] [id number], [place] [address] May, [facility] [place] [facility] [address] [id number], [place] [address] Jan, [facility] [place] [facility] [address] [id number] [place] [address] Nov, [facility] [place] [facility] [address] [facility] [id number], [place] [address] Apr, [facility] [place] [facility] [address] [facility] [id number] [place] [address] Dec, [facility] [place] [facility] [address] [facility] [id number] [place] [address] 12 Nov, 2008 IMMUNIZATIONS No Known Immunizations SOCIAL HISTORY Never Assessed REASON FOR VISIT Waiting for call back PLAN OF CARE VITAL SIGNS MEDICATIONS Medication Instructions Dosage Frequency Start Date End Date Duration Status Nicoderm CQ 7 MG/24HR Transdermal Once a day 1 patch to skin 24h 25 Jun, 2018 Sep, 30 days Active RESULTS No Results PROCEDURES No Known procedures INSTRUCTIONS MEDICATIONS ADMINISTERED No Known Medications MEDICAL (GENERAL) HISTORY Type Description Date Medical History Cardiovascular ljzbpuwb-RUR-Fdtgafoa, non-obstructive per [facility] (01/2011) Dr. Mendoza Medical History Stress test 03/07/13-Dr. Kelly Dietrich normal Medical History Hypertension Medical History Asthma Medical History Gastrointestinal Disorder--IBS, GERD, Hx of fatty liver Medical History Hernia 1979 Medical History Cervical dysplasia 02/16-Pap LGSIL/[place]-mild dysplasia Medical History Hyperlipidemia Medical History Rheumatoid [...]
--- OUTSIDE RECORDS SUMMARY | 2019-05-22 07:48 | XMS REPORT ---
Author Author LORI SNOWDEN [facility] Address [address] [place] [address] Care Team Providers Care Print Developer Automatic Name Role Phone LORI SNOWDEN Unavailable PROBLEMS Type Condition ICD9-CM Code ZSB24-IF Code Onset Dates Condition Status SNOMED Code Problem ADHD (attention deficit hyperactivity disorder), combined type F90.2 Active 46012756 Problem Generalized anxiety disorder F41.1 Active 72513448 Problem Asthma J45.909 Active 943655333 Problem Hypertension I10 Active 67293094 Problem Chronic pain syndrome G89.4 Active 701661208 Problem Rheumatoid arthritis involving multiple sites, unspecified rheumatoid factor presence M06.9 Active 316089295 Problem Rheumatoid arthritis M06.9 Active 21940180 Problem Gastroesophageal reflux disease with esophagitis K21.0 Active 928082244 Problem Weight gain R63.5 Active 5751596 Problem Anxiety F41.9 Active 68042391 Problem Panic attacks F41.0 Active 185305760 Problem Irritable bowel syndrome with diarrhea K58.0 Active 491853965 Problem Paroxysmal atrial fibrillation I48.0 Active 314237476 Problem Unsteady gait R26.81 Active 85481912 Problem Hyperinsulinemia E16.1 Active 24553475 Problem Arteriosclerotic coronary artery disease I25.10 Active 99496575 Problem Mixed hyperlipidemia E78.2 Active 833617318 Problem Seasonal allergies J30.2 Active 120651606 Problem Mild episode of recurrent major depressive disorder F33.0 Active 206794315 Problem Chronic obstructive pulmonary disease, unspecified COPD type J44.9 Active 74127658 Problem Primary insomnia F51.01 Active 0007168 Problem Chronic obstructive pulmonary disease, unspecified J44.9 Active 45855340944957229 Problem Obstructive sleep apnea G47.33 Active 45831312 Problem Neuropathy G62.9 Active 680927623 Problem Other insomnia G47.09 Active 190004805 Problem Dysthymic disorder F34.1 Active 46687863 Problem Sleep apnea in adult G47.30 Active 09336681 Problem Other retirement (current) drug therapy Z79.899 Active 480498860 Problem Cerebrovascular accident (CVA), unspecified mechanism I63.9 Active 837393136 ALLERGIES Substance Reaction Event Type Date Status Brewen Ellipta Nausea, dizziness Drug Allergy Jul, Active Solu-Medrol rash, swelling Drug Allergy Jul, Active Paxil Unknown Drug Allergy Jul, Active Hydrocodone-Acetaminophen hives Drug Allergy Jul, Active Doxycycline Hyclate local swellling Drug Allergy Jul, Active Codeine Sulfate hives Drug Allergy Jul, Active Oxybutynin 5 Ea Tablet mouth sores Non Drug Allergy Jul, Active Iodinated Contrast Media - Iv Dye unknown Non Drug Allergy Jul, Active ENCOUNTERS Encounter Location Date Diagnosis [facility] [id number] [place] [phone] Aug, [facility] [id number] [place] [address] Jul, [facility] [employer] [address] [place] [id number] Jul, [facility] [id number] [place] [address] Jul, [facility] [employer] [address] [place] [id number] Jul, Weakness R53.1 ; Paroxysmal atrial fibrillation I48.0 and Unsteady gait R26.81 [facility] [id number] [place] [address] Jul, Tobacco abuse Z72.0 [facility] [employer] [address] [place] [id number] Jun, History of acute respiratory failure Z87.09 ; Weight gain R63.5 and Tobacco abuse Z72.0 [facility] [id number] [place] [address] Jun, [facility] [id number] [place] [address] May, Primary insomnia F51.01 [facility] [id number] [place] [address] May, Mild episode of recurrent major depressive disorder F33.0 [facility] [id number] [place] [address] May, [facility] [id number] [place] [address] May, Chronic obstructive pulmonary disease, unspecified COPD type J44.9 ; Primary insomnia F51.01 ; Fatigue, unspecified type R53.83 and Weight gain R63.5 [facility] [id number] [place] [address] May, Thrush B37.0 [facility] [id number] [place] [address] May, Mild episode of recurrent major depressive disorder F33.0 and Generalized anxiety disorder F41.1 [facility] [id number] [place] [address] May, Thrush B37.0 [facility] [id number] [place] [address] Apr, Cough R05 [facility] [id number] [place] [address] Mar, Mild episode of recurrent major depressive disorder F33.0 [facility] [id number] [place] [address] Mar, Mild episode of recurrent major depressive disorder F33.0 and Generalized anxiety disorder F41.1 [facility] [id number] [place] [address] Mar, Seasonal allergies J30.2 [facility] [id number] [place] [address] Mar, Seasonal allergies J30.2 [facility] [id number] [place] [address] February, Generalized anxiety disorder F41.1 [facility] [id number] [place] [address] February, Cough R05 and Seasonal allergies J30.2 [facility] [id number] [place] [address] February, Generalized anxiety disorder F41.1 and Mild episode of recurrent major depressive disorder F33.0 [facility] [id number] [place] [address] February, 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 ; Anxiety F41.9 ; Panic attacks F41.0 and Irritable bowel syndrome with diarrhea K58.0 [facility] [id number] [place] [address] February, [facility] [address] [address] Jan, Mixed hyperlipidemia E78.2 [facility] [id number] [place] [address] Jan, [facility] [address] [address] Jan, [facility] [id number] [place] [address] Jan, [facility] [id number] [place] [address] Jan, [facility] [id number] [place] [address] Dec, [facility] [address] [address] Dec, [facility] [id number] [place] [address] Dec, [facility] [address] [address] Nov, Dysthymic disorder F34.1 [facility] [id number] [place] [address] Oct, [facility] [id number] [place] [address] Oct, [facility] [id number] [place] [address] Oct, [facility] [address] [address] Oct, Diarrhea, unspecified type R19.7 and Dysuria R30.0 [facility] [address] [address] Oct, [facility] [address] [address] Sep, [facility] [address] [address] Sep, [facility] [id number] [place] [address] Sep, Anxiety F41.9 [facility] [id number] [place] [address] Sep, Cerebrovascular accident (CVA), unspecified mechanism I63.9 ; Mixed hyperlipidemia E78.2 ; Gastroesophageal reflux disease with esophagitis K21.0 and Anxiety F41.9 [facility] [id number] [place] [address] Sep, [facility] [id number] [place] [address] Aug, Chronic obstructive pulmonary disease, unspecified J44.9 ; Asthma J45.909 ; Nausea R11.0 ; Dysthymic disorder F34.1 ; Cerebrovascular accident (CVA), unspecified mechanism I63.9 and Rheumatoid arthritis M06.9 [facility] [id number] [place] [address] Aug, Nausea R11.0 ; Encounter for immunization Z23 ; Sleep apnea in adult G47.30 ; Rheumatoid arthritis involving multiple sites, unspecified rheumatoid factor presence M06.9 ; Generalized anxiety disorder F41.1 ; Dysthymic disorder F34.1 and Asthma J45.909 [facility] [id number] [place] [address] Jul, [facility] [address] [address] May, ADHD (attention deficit hyperactivity disorder), combined type F90.2 ; Generalized anxiety disorder F41.1 and Persistent depressive disorder F34.1 [facility] [address] [address] May, Cerebrovascular accident (CVA), unspecified mechanism I63.9 [facility] [address] [address] Apr, Mixed hyperlipidemia E78.2 and Cerebrovascular accident (CVA), unspecified mechanism I63.9 [facility] [id number] [place] [address] Apr, Generalized anxiety disorder F41.1 [facility] [id number] [place] [address] Apr, Bronchitis J40 and Tobacco use Z72.0 [facility] [address] [address] Apr, Mixed hyperlipidemia E78.2 [facility] [id number] [place] [address] Apr, Other retirement (current) drug therapy Z79.899 [facility] [id number] [place] [address] Apr, [facility] [id number] [place] [address] Apr, Generalized anxiety disorder F41.1 [facility] [id number] [place] [address] Apr, Obstructive sleep apnea G47.33 and Hyperinsulinemia E16.1 [facility] [address] [address] Apr, ADHD (attention deficit hyperactivity disorder), combined type F90.2 ; Generalized anxiety disorder F41.1 and Persistent depressive disorder F34.1 [facility] [address] [address] Mar, [facility] [address] [address] Mar, Generalized anxiety disorder F41.1 [facility] [id number] [place] [address] Mar, Tarsal tunnel syndrome of both lower extremities G57.53 [facility] [address] [address] February, [facility] [id number] [place] [address] February, [facility] [id number] [place] [address] February, Asthma J45.909 [facility] [id number] [place] [address] February, Generalized anxiety disorder F41.1 [facility] [id number] [place] [address] February, Hypoxemia R09.02 ; Hyperglycemia R73.9 ; Rheumatoid arthritis M06.9 and Generalized anxiety disorder F41.1 [facility] [address] [address] February, [facility] [id number] [place] [address] Jan, Chronic obstructive pulmonary disease, unspecified J44.9 [facility] [id number] [place] [address] Jan, Chronic pain syndrome G89.4 [facility] [address] [address] Jan, Hypoxemia R09.02 [facility] [address] [address] Jan, [facility] [address] [address] Jan, Chronic obstructive pulmonary disease, unspecified J44.9 ; Hypoxemia R09.02 ; Other insomnia G47.09 and Left anterior shoulder pain M25.512 [facility] [address] [address] Jan, Numbness in feet R20.0 and Neuropathy G62.9 [facility] [address] [address] Jan, [facility] [address] [address] Dec, Acute pain of left shoulder M25.512 [facility] [address] [address] Dec, Acute pain of left shoulder M25.512 [facility] [id number] [place] [address] Dec, Generalized anxiety disorder F41.1 [facility] [address] [address] Dec, Generalized anxiety disorder F41.1 [facility] [address] [address] Nov, ADHD (attention deficit hyperactivity disorder), combined type F90.2 ; Generalized anxiety disorder F41.1 and Persistent depressive disorder F34.1 [facility] [id number] [place] [address] Nov, Acute pain of left shoulder M25.512 [facility] [id number] [place] [address] Nov, ADHD (attention deficit hyperactivity disorder), combined type F90.2 ; Generalized anxiety disorder F41.1 and Persistent depressive disorder F34.1 [facility] [id number] [place] [address] Nov, Chronic pain syndrome G89.4 [facility] [address] [address] Nov, Chronic pain syndrome G89.4 [facility] [address] [address] 08 Nov, 2016 Acute pain of left shoulder M25.512 [facility] [address] [address] Nov, Generalized anxiety disorder F41.1 [facility] [address] [address] Nov, Acute pain of left shoulder M25.512 [place] [address] [address] Nov, ADHD (attention deficit hyperactivity disorder), combined type F90.2 ; Generalized anxiety disorder F41.1 and Persistent depressive disorder F34.1 [facility] [id number] [place] [address] Nov, Acute pain of left shoulder M25.512 ; Generalized anxiety disorder F41.1 ; Chronic pain syndrome G89.4 ; Hyperinsulinemia E16.1 ; Pain of left foot M79.672 and Pain in right foot M79.671 [facility] [id number] [place] [address] Oct, ADHD (attention deficit hyperactivity disorder), combined type F90.2 ; Generalized anxiety disorder F41.1 and Dysthymic disorder F34.1 [facility] [address] [place] [address] Sep, [facility] [address] [address] Sep, [facility] [address] [address] Sep, Routine gynecological examination V72.31 ; Cervical cancer screening Z12.4 ; Breast cancer screening Z12.39 ; Colon cancer screening Z12.11 ; Hypokalemia E87.6 ; Herpes simplex type 1 infection B00.9 and Abscess of right axilla L02.411 [facility] [address] [address] Sep, [facility] [address] [address] Sep, ADHD (attention deficit hyperactivity disorder), combined type F90.2 ; Generalized anxiety disorder F41.1 and Dysthymic disorder F34.1 [facility] [address] [address] Aug, [facility] [address] [address] Aug, [facility] [address] [address] Aug, Generalized anxiety disorder F41.1 [facility] [address] [address] Aug, ADHD (attention deficit hyperactivity disorder), combined type F90.2 ; Generalized anxiety disorder F41.1 and Dysthymic disorder F34.1 [facility] [id number] [place] [address] Jul, Chronic pain syndrome G89.4 ; Hypertension I10 ; Hypokalemia E87.6 ; Asthma J45.909 and Nausea R11.0 [facility] [address] [address] Jul, [facility] [id number] [place] [address] Jul, Asthma J45.909 [facility] [address] [address] Jul, ADHD (attention deficit hyperactivity disorder), combined type F90.2 ; Generalized anxiety disorder F41.1 and Dysthymic disorder F34.1 [facility] [address] [address] Jul, [facility] [address] [address] Jul, Hypertension I10 ; Arteriosclerotic coronary artery disease I25.10 ; Mixed hyperlipidemia E78.2 ; Other retirement (current) drug therapy Z79.899 and Hyperglycemia R73.9 [facility] [address] [address] 16 Jun, 2016 Hypokalemia E87.6 and Hyperglycemia R73.9 [facility] [address] [address] 14 Jun, 2016 [facility] [id number] [place] [address] 13 Jun, 2016 Abnormal kidney function N28.9 [facility] [id number] [place] [address] Jun, [facility] [address] [address] Jun, ADHD (attention deficit hyperactivity disorder), combined type F90.2 ; Generalized anxiety disorder F41.1 and Dysthymic disorder F34.1 [facility] [id number] [place] [address] Jun, Generalized anxiety disorder F41.1 and Dysthymic disorder F34.1 [facility] [id number] [place] [address] Jun, Hypokalemia E87.6 [facility] [address] [address] May, Hypokalemia E87.6 ; Vertigo R42 and Hyperinsulinemia E16.1 [facility] [address] [address] May, [facility] [address] [address] May, Abnormal kidney function N28.9 ; Hyperinsulinemia E16.1 and Nausea R11.0 [facility] [address] [address] May, Hypokalemia E87.6 ; Nausea R11.0 ; Epigastric pain R10.13 ; Dehydration E86.0 ; Diaphoresis R61 and Right arm pain M79.601 [facility] [address] [address] May, [facility] [address] [address] May, Hypokalemia E87.6 [facility] [address] [address] May, Hypokalemia E87.6 [facility] [address] [address] Apr, [facility] [address] [address] Apr, ADHD (attention deficit hyperactivity disorder), combined type F90.2 ; Generalized anxiety disorder F41.1 and Dysthymic disorder F34.1 [facility] [address] [address] Apr, Right arm pain M79.601 and Hyperinsulinemia E16.1 [facility] [address] [address] Mar, [facility] [address] [address] Mar, [facility] [id number] [place] [address] Mar, Hyperinsulinemia E16.1 ; Hyperlipidemia, unspecified hyperlipidemia type E78.5 ; Central venous catheter in place Z78.9 ; Generalized anxiety disorder F41.1 and Urinary tract infection, site not specified N39.0 [facility] [id number] [place] [address] Mar, ADHD (attention deficit hyperactivity disorder), combined type F90.2 ; Generalized anxiety disorder F41.1 and Dysthymic disorder F34.1 [facility] [id number] [place] [address] February, ADHD (attention deficit hyperactivity disorder), combined type F90.2 ; Generalized anxiety disorder F41.1 and Dysthymic disorder F34.1 [facility] [id number] [place] [address] February, [facility] [id number] [place] [address] February, [facility] [id number] [place] [address] February, Hypertension I10 and Weight gain R63.5 [facility] [id number] [place] [address] February, Major depressive disorder, recurrent, moderate F33.1 and Generalized anxiety disorder F41.1 [facility] [address] [place] [address] February, ADHD (attention deficit hyperactivity disorder), combined type F90.2 ; Generalized anxiety disorder F41.1 and Dysthymic disorder F34.1 [facility] [address] [place] [address] February, [facility] [id number] [place] [address] February, Asthma J45.909 ; Weight gain R63.5 ; Hypertension I10 ; Rheumatoid arthritis M06.9 and Chronic pain syndrome G89.4 [facility] [id number] [place] [address] Jan, ADHD (attention deficit hyperactivity disorder), combined type F90.2 ; Generalized anxiety disorder F41.1 and Dysthymic disorder F34.1 [facility] [id number] [place] [address] Dec, ADHD (attention deficit hyperactivity disorder), combined type F90.2 ; Generalized anxiety disorder F41.1 and Dysthymic disorder F34.1 [facility] [id number] [place] [address] Dec, [facility] [id number] [place] [address] Nov, [facility] [id number] [place] [address] Nov, [facility] [id number] [place] [address] Nov, [facility] [id number] [place] [address] Nov, [facility] [id number] [place] [address] Oct, [facility] [id number] [place] [address] Oct, [facility] [id number] [place] [address] Oct, [facility] [id number] [place] [address] Sep, [facility] [id number] [place] [address] Sep, [facility] [address] [address] Sep, Agoraphobia with panic disorder F40.01 ; Attention-deficit hyperactivity disorder, combined type F90.2 and Dysthymic disorder F34.1 [facility] [address] [address] Aug, [facility] [id number] [place] [address] Aug, [facility] [id number] [place] [address] Aug, [facility] [id number] [place] [address] Aug, Dysthymic disorder F34.1 ; Generalized anxiety disorder F41.1 and ADHD (attention deficit hyperactivity disorder), combined type F90.2 [facility] [facility] [id number] [place] [address] Aug, ADHD (attention deficit hyperactivity disorder), combined type F90.2 ; Generalized anxiety disorder F41.1 and Dysthymic disorder F34.1 [facility] [id number] [place] [address] Jul, Urinary tract infection, site not specified N39.0 ; Hypotension, unspecified I95.9 and Breast cancer screening Z12.39 [facility] [address] [place] [address] Jul, [facility] [address] [place] [address] Jul, [facility] [id number] [place] [address] Jul, Urinary tract infection, site not specified N39.0 ; Nausea R11.0 ; Gastroenteritis K52.9 ; Renal failure N19 and Other hypotension I95.89 [facility] [facility] [id number] [place] [address] Jul, [facility] [address] [address] Jul, [facility] [id number] [place] [address] Jul, [facility] [id number] [place] [address] Jun, [facility] [id number] [place] [address] Jun, Major depression in partial remission 296.25 ; Generalized anxiety disorder 300.02 and ADHD, predominantly inattentive type 314.01 [facility] [id number] [place] [address] May, [facility] [id number] [place] [phone] Apr, Major depressive disorder, recurrent episode, severe, without mention of psychotic behavior 296.33 ; Agoraphobia with panic disorder 300.21 and Generalized anxiety disorder 300.02 [facility] [id number] [place] [phone] Apr, ADHD (attention deficit hyperactivity disorder), combined type 314.01 ; Generalized anxiety disorder 300.02 and Dysthymic disorder 300.4 [id number] [place] [phone] Apr, CAD (coronary artery disease) 414.00 ; HTN (hypertension) 401.9 and Tobacco use 305.1 [facility] [id number] [phone] Apr, [facility] [id number] [place] [phone] Mar, ADHD (attention deficit hyperactivity disorder), combined type 314.01 ; Generalized anxiety disorder 300.02 ; Dysthymic disorder 300.4 ; No condition on [place] V71.09 ; Rheumatoid arthritis 714.0 ; Incontinence 788.30 ; Irritable bowel syndrome 564.1 ; Osteoporosis 733.00 and Chronic pain 338.29 [facility] [id number] [address] Mar, Agoraphobia with panic disorder 300.21 and Major depressive disorder, recurrent episode, moderate 296.32 [facility] [id number] [address] Mar, [facility] [id number] [place] [address] February, [facility] [id number] [place] [address] February, Agoraphobia with panic disorder 300.21 and Major depressive disorder, recurrent episode, moderate 296.32 [facility] [id number] [address] February, [facility] [id number] [place] [address] Jan, [facility] [id number] [address] Jan, [facility] [id number] [place] [address] Dec, [facility] [id number] [address] Dec, [facility] [id number], [place] [address] Dec, [facility] [id number] [address] Dec, [facility] [id number], [place] [address] Dec, [facility] [id number] [address] Dec, [facility] [id number] [address] Nov, [facility] [place] [facility] [address] [id number] [place] [address] Nov, [facility] [place] [facility] [address] [id number] [place] [address] Nov, [facility] [place] [facility] [address] [id number] [place] [address] Nov, 2014 [facility] [place] [facility] [address] [id number] [place] [address] Nov, 2014 [facility] [place] [facility] [address] [id number] [place] [address] Nov, [facility] [place] [facility] [address] [id number] [place] [address] Nov, [facility] [place] [facility] [address] [id number] [place] [address] Nov, [facility] [place] [facility] [address] [id number] [place] [address] Oct, [facility] [place] [facility] [address] [id number] [place] [address] Oct, [facility] [place] [facility] [address] [id number] [place] [address] Oct, [facility] [place] [facility] [address] [id number] [place] [address] Oct, [facility] [place] [facility] [address] [id number] [place] [address] Oct, [facility] [place] [facility] [address] [id number] [place] [address] Oct, [facility] [place] [facility] [address] [facility] [id number] [place] [address] Sep, [facility] [place] [facility] [address] [id number] [place] [address] Sep, [facility] [place] [facility] [address] [id number] [place] [address] 16 Sep, 2014 [facility] [place] [facility] [address] [id number] [place] [address] 16 Sep, 2014 [facility] [place] [facility] [address] [id number] [place] [address] Sep, [facility] [place] [facility] [address] [id number] [place] [address] 05 Sep, 2014 [facility] [place] [facility] [address] [id number] [place] [address] 05 Sep, 2014 [facility] [place] [facility] [address] [id number] [place] [address] Aug, [facility] [place] [facility] [address] [id number] [place] [address] 24 Aug, 2014 [facility] [place] [facility] [address] [id number] [place] [address] Aug, [facility] [place] [facility] [address] [id number] [place] [address] 18 Aug, 2014 [facility] [place] [facility] [address] [id number] [place] [address] Aug, [facility] [place] [facility] [address] [facility] [id number] [place] [address] 18 Aug, 2014 [facility] [place] [facility] [address] [id number] [place] [address] 17 Jul, 2014 [facility] [place] [facility] [address] [id number] [place] [address] 17 Jul, 2014 [facility] [place] [facility] [address] [id number] [place] [address] 13 Jul, 2014 [facility] [place] [facility] [address] [id number] [place] [address] 13 Jul, 2014 [facility] [place] [facility] [address] [id number] [place] [address] Jul, [facility] [place] [facility] [address] [id number] [place] [address] Jul, [facility] [place] [facility] [address] [id number] [place] [address] Jun, [facility] [place] [facility] [address] [id number] [place] [address] Jun, [facility] [place] [facility] [address] [id number] [place] [address] May, [facility] [place] [facility] [address] [id number] [place] [address] May, [facility] [place] [facility] [address] [id number] [place] [address] Apr, [facility] [place] [facility] [address] [id number] [place] [address] Apr, [facility] [place] [facility] [address] [id number] [place] [address] Apr, [facility] [place] [facility] [address] [id number] [place] [address] Apr, [facility] [place] [facility] [address] [id number] [place] [address] Mar, [facility] [place] [facility] [address] [id number] [place] [address] Mar, [facility] [place] [facility] [address] [id number] [place] [address] Mar, [facility] [place] [facility] [address] [id number] [place] [address] Mar, [facility] [place] [facility] [address] [id number] [place] [address] February, [facility] [place] [facility] [address] [id number] [place] [address] February, [facility] [place] [facility] [address] [id number] [address] February, [facility] [address] [id number] [place] [address] February, [facility] [place] [facility] [address] [id number] [place] [address] February, [facility] [place] [facility] [address] [id number] [place] [address] February, [facility] [place] [facility] [address] [id number] [place] [address] Jan, [facility] [place] [facility] [address] [id number] [place] [address] Jan, [facility] [place] [facility] [address] [id number] [place] [address] Dec, [facility] [place] [facility] [address] [id number] [place] [address] Dec, [facility] [place] [facility] [address] [id number] [place] [address] Nov, [facility] [place] [facility] [address] [id number] [place] [address] Nov, [facility] [place] [facility] [address] [id number] [place] [address] Oct, [facility] [place] [facility] [address] [id number] [place] [address] Oct, [facility] [place] [facility] [address] [id number] [place] [address] Oct, [facility] [place] [facility] [address] [id number] [place] [address] Oct, [facility] [place] [facility] [address] [id number] [place] [address] Sep, [facility] [place] [facility] [address] [id number] [place] [address] Sep, [facility] [place] [facility] [address] [id number] [place] [address] Sep, 2012 [facility] [place] [facility] [address] [id number] [place] [address] Sep, [facility] [place] [facility] [address] [id number] [place] [address] Sep, 2012 [facility] [place] [facility] [address] [id number] [place] [address] Sep, 2012 [facility] [place] [facility] [address] [id number] [place] [address] Sep, [facility] [place] [facility] [address] [id number] [place] [address] Sep, [facility] [place] [facility] [address] [id number] [place] [address] Aug, [facility] [place] [facility] [address] [id number] [place] [address] Aug, [facility] [place] [facility] [address] [id number] [place] [address] Aug, [facility] [place] [facility] [address] [id number] [place] [address] Aug, [facility] [place] [facility] [address] [id number] [place] [address] Aug, [facility] [place] [facility] [address] [id number] [place] [address] Aug, [facility] [place] [facility] [address] [id number] [place] [address] Aug, [facility] [place] [facility] [address] [id number] [place] [address] Aug, [facility] [place] [facility] [address] [id number] [place] [address] Aug, [facility] [place] [facility] [address] [id number] [place] [address] Jul, [facility] [address] [id number] [place] [address] Jun, [facility] [place] [facility] [address] [id number] [place] [address] May, [facility] [address] [id number] [place] [address] May, [facility] [place] [facility] [address] [id number] [place] [address] May, [facility] [address] [id number] [place] [address] Apr, [facility] [address] [id number] [place] [address] Mar, [facility] [place] [facility] [address] [id number] [place] [address] February, [facility] [place] [facility] [address] [id number] [place] [address] Oct, [facility] [address] [id number] [place] [address] Oct, [facility] [place] [facility] [address] [id number] [place] [address] Oct, [facility] [place] [facility] [address] [id number] [address] Oct, [facility] [place] [facility] [address] [id number], [place] [address] Oct, [facility] [place] [facility] [address] [id number] [place] [address] Oct, [facility] [place] [facility] [address] [id number], [place] [address] Sep, [facility] [place] [facility] [address] [id number] [place] [address] Sep, [facility] [place] [facility] [address] [id number] [place] [address] Aug, [facility] [place] [facility] [address] [id number] [place] [address] Aug, [facility] [place] [facility] [address] [id number] [place] [address] Jul, [facility] [place] [facility] [address] [id number] [place] [address] Jul, [facility] [place] [facility] [address] [id number] [place] [address] Jul, [facility] [place] [facility] [address] [id number] [place] [address] Jul, [facility] [place] [facility] [address] [id number] [place] [address] Jul, [facility] [place] [facility] [address] [facility] [id number] [place] [address] Jul, [facility] [place] [facility] [address] [id number] [place] [address] Jul, [facility] [place] [facility] [address] [id number] [place] [address] Jul, [facility] [place] [facility] [address] [facility] [id number] [place] [address] Jun, [facility] [place] [facility] [address] [id number] [place] [address] Jun, [facility] [place] [facility] [address] [id number] [place] [address] May, [facility] [place] [facility] [address] [id number] [place] [address] Apr, [facility] [place] [facility] [address] [facility] [id number] [place] [address] Mar, [facility] [place] [facility] [address] [id number] [place] [address] Mar, [facility] [place] [facility] [address] [id number] [place] [address] Mar, [facility] [place] [facility] [address] [id number] [place] [address] Mar, [facility] [place] [facility] [address] [id number] [place] [address] Jan, [facility] [place] [facility] [address] [id number] [place] [address] Nov, [facility] [place] [facility] [address] [id number] [place] [address] Nov, [facility] [place] [facility] [address] [id number] [place] [address] Nov, [facility] [place] [facility] [address] [id number] [place] [address] Oct, [facility] [place] [facility] [address] [id number] [place] [address] Sep, [facility] [place] [facility] [address] [id number] [place] [address] Sep, [facility] [place] [facility] [address] [id number] [place] [address] Aug, [facility] [place] [facility] [address] [id number] [place] [address] Aug, [facility] [place] [facility] [address] [id number], [place] [address] Aug, [facility] [place] [facility] [address] [id number] [place] [address] Aug, [facility] [place] [facility] [address] [id number] [place] [address] Jul, [facility] [place] [facility] [address] [id number], [place] [address] May, [facility] [place] [facility] [address] [id number], [place] [address] Jan, [facility] [address] [facility] [id number] [place] [address] Nov, [facility] [address] [facility] [id number], [place] [address] Apr, [facility] [address] [facility] [id number], [place] [address] Dec, [facility] [address] [facility] [id number], [place] [address] Nov, IMMUNIZATIONS No Known Immunizations SOCIAL HISTORY Never Assessed REASON FOR VISIT residential visit --IKER Arnett PLAN OF CARE Activity Details Follow Up prn Reason: VITAL SIGNS MEDICATIONS Unknown Medications RESULTS No Results PROCEDURES Procedure Date Ordered Result Body Site Minor complication (15 mins) Jul 12, 2018 INSTRUCTIONS MEDICATIONS ADMINISTERED No Known Medications MEDICAL (GENERAL) HISTORY Type Description Date Medical History Cardiovascular mbjenxht-FLV-Qqzodfzp, non-obstructive per (01/2011) Dr. Mendoza Medical History Stress test 03/07/13-Dr. Kelly Dietrich normal Medical History Hypertension Medical History Asthma Medical History Gastrointestinal Disorder--IBS, GERD, Hx of fatty liver Medical History Hernia 1978 Medical History Cervical dysplasia 02/16-Pap LGSIL/[place]-mild dysplasia Medical History Hyperlipidemia Medical History Rheumatoid [...] Hospitalization History Symptomatic Hypokalemia/Nause-Via [facility] 05/13/16 Hospitalization History Stroke 05/03/2017 Hospitalization History stroke 08/24/2017--09/01/2017
--- OUTSIDE RECORDS SUMMARY | 2019-05-22 07:49 | XMS REPORT ---
Author Author LORI SNOWDEN [facility] Address [address] [place] [address] Care Team Providers Care Adjunct Faculty Mathematics Department Name Role Phone LORI SNOWDEN Unavailable PROBLEMS Type Condition ICD9-CM Code LQW11-HZ Code Onset Dates Condition Status SNOMED Code Problem ADHD (attention deficit hyperactivity disorder), combined type F90.2 Active 52163986 Problem Generalized anxiety disorder F41.1 Active 78205053 Problem Asthma J45.909 Active 894250074 Problem Hypertension I10 Active 35422145 Problem Chronic pain syndrome G89.4 Active 101161643 Problem Rheumatoid arthritis involving multiple sites, unspecified rheumatoid factor presence M06.9 Active 704708814 Problem Rheumatoid arthritis M06.9 Active 43864291 Problem Gastroesophageal reflux disease with esophagitis K21.0 Active 632966500 Problem Weight gain R63.5 Active 9520501 Problem Anxiety F41.9 Active 64302978 Problem Panic attacks F41.0 Active 077725298 Problem Irritable bowel syndrome with diarrhea K58.0 Active 871695036 Problem Paroxysmal atrial fibrillation I48.0 Active 679916763 Problem Unsteady gait R26.81 Active 97817075 Problem Hyperinsulinemia E16.1 Active 20101245 Problem Arteriosclerotic coronary artery disease I25.10 Active 19470486 Problem Mixed hyperlipidemia E78.2 Active 134744711 Problem Seasonal allergies J30.2 Active 244498525 Problem Mild episode of recurrent major depressive disorder F33.0 Active 409069776 Problem Chronic obstructive pulmonary disease, unspecified COPD type J44.9 Active 75871665 Problem Primary insomnia F51.01 Active 7394291 Problem Chronic obstructive pulmonary disease, unspecified J44.9 Active 90485576391010532 Problem Obstructive sleep apnea G47.33 Active 20684416 Problem Neuropathy G62.9 Active 991005484 Problem Other insomnia G47.09 Active 761082719 Problem Dysthymic disorder F34.1 Active 47504521 Problem Sleep apnea in adult G47.30 Active 75793971 Problem Other custodial (current) drug therapy Z79.899 Active 801773106 Problem Cerebrovascular accident (CVA), unspecified mechanism I63.9 Active 266878492 ALLERGIES No Information ENCOUNTERS Encounter Location Date Diagnosis [place] [id number] [place] [address] Jul, [facility] [address] [place] [id number] Jul, [place] [address] [place] [id number] [place] [address] Jul, [facility] [address] [place] [id number] Jul, Weakness R53.1 ; Paroxysmal atrial fibrillation I48.0 and Unsteady gait R26.81 [place] [address] [place] [id number] [place] [address] Jul, Tobacco abuse Z72.0 [facility] [address] [place] [id number] Jun, History of acute respiratory failure Z87.09 ; Weight gain R63.5 and Tobacco abuse Z72.0 [place] [address] [place] [id number] [place] [address] Jun, [place] [address] [place] [id number] [place] [address] May, Primary insomnia F51.01 [place] [address] [place] [id number] [place] [address] May, Mild episode of recurrent major depressive disorder F33.0 [place] [address] [place] [id number] [place] [address] May, [place] [address] [place] [id number] [place] [address] May, Chronic obstructive pulmonary disease, unspecified COPD type J44.9 ; Primary insomnia F51.01 ; Fatigue, unspecified type R53.83 and Weight gain R63.5 [place] [address] [address] May, Thrush B37.0 [facility] [id number] [place] [address] May, Mild episode of recurrent major depressive disorder F33.0 and Generalized anxiety disorder F41.1 [facility] [address] [place] [address] May, Thrush B37.0 [facility] [address] [place] [id number] [place] [address] Apr, Cough R05 [facility] [address] [place] [id number] [place] [address] Mar, Mild episode of recurrent major depressive disorder F33.0 [facility] [address] [place] [address] Mar, Mild episode of recurrent major depressive disorder F33.0 and Generalized anxiety disorder F41.1 [place] [address] [place] [address] Mar, Seasonal allergies J30.2 [facility] [address] [place] [id number] [place] [address] Mar, Seasonal allergies J30.2 [facility] [address] [place] [address] February, Generalized anxiety disorder F41.1 [facility] [address] [address] February, Cough R05 and Seasonal allergies J30.2 [facility] [id number] [place] [address] February, Generalized anxiety disorder F41.1 and Mild episode of recurrent major depressive disorder F33.0 [facility] [address] [address] February, Other custodial (current) drug therapy Z79.899 ; Anxiety F41.9 ; Panic attacks F41.0 and Irritable bowel syndrome with diarrhea K58.0 [facility] [id number] [place] [address] February, [facility] [id number] [place] [address] Jan, Mixed hyperlipidemia E78.2 [facility] [address] [place] [id number] [place] [address] Jan, [facility] [id number] [place] [address] Jan, [facility] [id number] [place] [address] Jan, [facility] [id number] [place] [address] Jan, [facility] [address] [place] [id number] [place] [address] Dec, [facility] [address] [id number] [place] [address] Dec, [facility] [address] [place] [id number] [place] [address] Dec, [facility] [address] [place] [id number] [place] [address] Nov, Dysthymic disorder F34.1 [facility] [address] [place] [address] [id number] [place] [address] Oct, [facility] [address] [place] [address] Oct, [facility] [address] [place] [id number] [place] [address] Oct, [facility] [address] [place] [address] [id number] [place] [address] Oct, Diarrhea, unspecified type R19.7 and Dysuria R30.0 [place] [address] [place] [address] Oct, [place] [address] [place] [id number] [place] [address] Sep, [place] [address] [place] [id number] [place] [address] Sep, [place] [address] [place] [id number] [place] [address] Sep, Anxiety F41.9 [place] [address] [place] [id number] [place] [address] Sep, Cerebrovascular accident (CVA), unspecified mechanism I63.9 ; Mixed hyperlipidemia E78.2 ; Gastroesophageal reflux disease with esophagitis K21.0 and Anxiety F41.9 [place] [address] [place] [id number] [place] [address] Sep, [place] [address] [place] [id number] [place] [address] Aug, Chronic obstructive pulmonary disease, unspecified J44.9 ; Asthma J45.909 ; Nausea R11.0 ; Dysthymic disorder F34.1 ; Cerebrovascular accident (CVA), unspecified mechanism I63.9 and Rheumatoid arthritis M06.9 [place] [address] [place] [address] Aug, Nausea R11.0 ; Encounter for immunization Z23 ; Sleep apnea in adult G47.30 ; Rheumatoid arthritis involving multiple sites, unspecified rheumatoid factor presence M06.9 ; Generalized anxiety disorder F41.1 ; Dysthymic disorder F34.1 and Asthma J45.909 [place] [address] [place] [address] Jul, [place] [address] [place] [id number] [place] [address] May, ADHD (attention deficit hyperactivity disorder), combined type F90.2 ; Generalized anxiety disorder F41.1 and Persistent depressive disorder F34.1 [place] [address] [place] [id number] [place] [address] May, Cerebrovascular accident (CVA), unspecified mechanism I63.9 [facility] [address] [place] [id number] [place] [address] Apr, Mixed hyperlipidemia E78.2 and Cerebrovascular accident (CVA), unspecified mechanism I63.9 [place] [address] [address] Apr, Generalized anxiety disorder F41.1 [place] [address] [address] Apr, Bronchitis J40 and Tobacco use Z72.0 [place] [address] [address] Apr, Mixed hyperlipidemia E78.2 [place] [address] [address] Apr, Other custodial (current) drug therapy Z79.899 [place] [address] [address] Apr, [place] [address] [address] Apr, Generalized anxiety disorder F41.1 [place] [address] [address] Apr, Obstructive sleep apnea G47.33 and Hyperinsulinemia E16.1 [place] [address] [place] [id number] [place] [address] Apr, ADHD (attention deficit hyperactivity disorder), combined type F90.2 ; Generalized anxiety disorder F41.1 and Persistent depressive disorder F34.1 [place] [address] [place] [id number] [place] [address] Mar, [place] [address] [place] [address] Mar, Generalized anxiety disorder F41.1 [facility] [address] [place] [id number] [place] [address] Mar, Tarsal tunnel syndrome of both lower extremities G57.53 [facility] [address] [place] [id number] [place] [address] February, [facility] [address] [address] February, [facility] [address] [place] [id number] [place] [address] February, Asthma J45.909 [facility] [address] [place] [id number] [place] [address] February, Generalized anxiety disorder F41.1 [place] [address] [address] February, Hypoxemia R09.02 ; Hyperglycemia R73.9 ; Rheumatoid arthritis M06.9 and Generalized anxiety disorder F41.1 [place] [address] [place] [id number] [place] [address] February, [facility] [address] [place] [id number] [place] [address] Jan, Chronic obstructive pulmonary disease, unspecified J44.9 [facility] [address] [place] [id number] [place] [address] Jan, Chronic pain syndrome G89.4 [facility] [address] [place] [id number] [place] [address] Jan, Hypoxemia R09.02 [facility] [address] [place] [id number] [place] [address] Jan, [facility] [address] [place] [id number] [place] [address] Jan, Chronic obstructive pulmonary disease, unspecified J44.9 ; Hypoxemia R09.02 ; Other insomnia G47.09 and Left anterior shoulder pain M25.512 [facility] [address] [place] [id number] [place] [address] Jan, Numbness in feet R20.0 and Neuropathy G62.9 [facility] [address] [place] [id number] [place] [address] Jan, [facility] [address] [address] Dec, Acute pain of left shoulder M25.512 [facility] [address] [place] [id number] [place] [address] Dec, Acute pain of left shoulder M25.512 [facility] [address] [place] [id number] [place] [address] Dec, Generalized anxiety disorder F41.1 [place] [address] [address] Dec, Generalized anxiety disorder F41.1 [place] [address] [place] [id number] [place] [address] Nov, ADHD (attention deficit hyperactivity disorder), combined type F90.2 ; Generalized anxiety disorder F41.1 and Persistent depressive disorder F34.1 [place] [address] [place] [id number] [place] [address] Nov, Acute pain of left shoulder M25.512 [facility] [address] [place] [id number] [place] [address] Nov, ADHD (attention deficit hyperactivity disorder), combined type F90.2 ; Generalized anxiety disorder F41.1 and Persistent depressive disorder F34.1 [place] [address] [place] [id number] [place] [address] Nov, Chronic pain syndrome G89.4 [facility] [address] [place] [id number] [place] [address] Nov, Chronic pain syndrome G89.4 [place] [address] [place] [address] Nov, Acute pain of left shoulder M25.512 [place] [address] [place] [id number] [place] [address] Nov, Generalized anxiety disorder F41.1 [place] [address] [place] [id number] [place] [address] Nov, Acute pain of left shoulder M25.512 [place] [address] [place] [id number] [place] [address] Nov, ADHD (attention deficit hyperactivity disorder), combined type F90.2 ; Generalized anxiety disorder F41.1 and Persistent depressive disorder F34.1 [place] [address] [place] [id number] [place] [address] Nov, Acute pain of left shoulder M25.512 ; Generalized anxiety disorder F41.1 ; Chronic pain syndrome G89.4 ; Hyperinsulinemia E16.1 ; Pain of left foot M79.672 and Pain in right foot M79.671 [place] [address] [place] [id number] [place] [address] Oct, ADHD (attention deficit hyperactivity disorder), combined type F90.2 ; Generalized anxiety disorder F41.1 and Dysthymic disorder F34.1 [place] [address] [place] [address] Sep, [place] [address] [place] [id number] [place] [address] Sep, [place] [address] [place] [id number] [place] [address] Sep, Routine gynecological examination V72.31 ; Cervical cancer screening Z12.4 ; Breast cancer screening Z12.39 ; Colon cancer screening Z12.11 ; Hypokalemia E87.6 ; Herpes simplex type 1 infection B00.9 and Abscess of right axilla L02.411 [place] [address] [place] [id number] [place] [address] Sep, [facility] [address] [address] Sep, ADHD (attention deficit hyperactivity disorder), combined type F90.2 ; Generalized anxiety disorder F41.1 and Dysthymic disorder F34.1 [facility] [address] [place] [id number] [place] [address] Aug, [facility] [address] [place] [address] [id number] [place] [address] Aug, [place] [address] [address] Aug, Generalized anxiety disorder F41.1 [place] [address] [place] [id number] [place] [address] Aug, ADHD (attention deficit hyperactivity disorder), combined type F90.2 ; Generalized anxiety disorder F41.1 and Dysthymic disorder F34.1 [facility] [address] [place] [id number] [place] [address] Jul, Chronic pain syndrome G89.4 ; Hypertension I10 ; Hypokalemia E87.6 ; Asthma J45.909 and Nausea R11.0 [facility] [address] [place] [id number] [place] [address] Jul, [facility] [address] [place] [id number] [place] [address] Jul, Asthma J45.909 [facility] [address] [place] [id number] [place] [address] Jul, ADHD (attention deficit hyperactivity disorder), combined type F90.2 ; Generalized anxiety disorder F41.1 and Dysthymic disorder F34.1 [facility] [address] [place] [id number] [place] [address] Jul, [facility] [address] [address] Jul, Hypertension I10 ; Arteriosclerotic coronary artery disease I25.10 ; Mixed hyperlipidemia E78.2 ; 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 and Hyperglycemia R73.9 [place] [address] [address] 16 Jun, 2016 Hypokalemia E87.6 and Hyperglycemia R73.9 [place] [address] [address] 14 Jun, 2016 [place] [address] [address] Jun, Abnormal kidney function N28.9 [place] [address] [address] Jun, [place] [address] [address] Jun, ADHD (attention deficit hyperactivity disorder), combined type F90.2 ; Generalized anxiety disorder F41.1 and Dysthymic disorder F34.1 [place] [address] [address] Jun, Generalized anxiety disorder F41.1 and Dysthymic disorder F34.1 [place] [address] [address] Jun, Hypokalemia E87.6 [place] [address] [address] May, Hypokalemia E87.6 ; Vertigo R42 and Hyperinsulinemia E16.1 [place] [address] [address] May, [place] [address] [address] May, Abnormal kidney function N28.9 ; Hyperinsulinemia E16.1 and Nausea R11.0 [place] [address] [place] [address] [place] [address] May, Hypokalemia E87.6 ; Nausea R11.0 ; Epigastric pain R10.13 ; Dehydration E86.0 ; Diaphoresis R61 and Right arm pain M79.601 [place] [address] [place] [id number] [place] [address] May, [place] [address] [address] May, Hypokalemia E87.6 [place] [address] [address] May, Hypokalemia E87.6 [place] [address] [address] Apr, [place] [address] [address] Apr, ADHD (attention deficit hyperactivity disorder), combined type F90.2 ; Generalized anxiety disorder F41.1 and Dysthymic disorder F34.1 [place] [address] [address] Apr, Right arm pain M79.601 and Hyperinsulinemia E16.1 [place] [address] [place] [id number] [place] [address] Mar, [place] [address] [address] Mar, [place] [address] [place] [id number] [place] [address] Mar, Hyperinsulinemia E16.1 ; Hyperlipidemia, unspecified hyperlipidemia type E78.5 ; Central venous catheter in place Z78.9 ; Generalized anxiety disorder F41.1 and Urinary tract infection, site not specified N39.0 [place] [address] [place] [id number] [place] [address] Mar, ADHD (attention deficit hyperactivity disorder), combined type F90.2 ; Generalized anxiety disorder F41.1 and Dysthymic disorder F34.1 [place] [address] [place] [address] February, ADHD (attention deficit hyperactivity disorder), combined type F90.2 ; Generalized anxiety disorder F41.1 and Dysthymic disorder F34.1 [place] [address] [place] [id number] [place] [address] February, [place] [address] [place] [id number] [place] [address] February, [place] [address] [place] [id number] [place] [address] February, Hypertension I10 and Weight gain R63.5 [place] [address] [place] [id number] [place] [address] February, Major depressive disorder, recurrent, moderate F33.1 and Generalized anxiety disorder F41.1 [place] [address] [place] [id number] [place] [address] February, ADHD (attention deficit hyperactivity disorder), combined type F90.2 ; Generalized anxiety disorder F41.1 and Dysthymic disorder F34.1 [place] [address] [place] [address] February, [place] [address] [place] [address] February, Asthma J45.909 ; Weight gain R63.5 ; Hypertension I10 ; Rheumatoid arthritis M06.9 and Chronic pain syndrome G89.4 [place] [address] [place] [id number] [place] [address] Jan, ADHD (attention deficit hyperactivity disorder), combined type F90.2 ; Generalized anxiety disorder F41.1 and Dysthymic disorder F34.1 [place] [address] [address] Dec, ADHD (attention deficit hyperactivity disorder), combined type F90.2 ; Generalized anxiety disorder F41.1 and Dysthymic disorder F34.1 [facility] [address] [address] Dec, [facility] [id number] [address] Nov, [facility] [id number] [place] [address] Nov, [facility] [id number] [place] [address] Nov, [facility] [id number] [place] [address] Nov, [facility] [id number] [place] [address] Oct, [facility] [id number] [place] [address] Oct, [facility] [address] [place] [address] Oct, [facility] [address] [place] [address] Sep, [facility] [address] [address] Sep, [facility] [address] [address] Sep, Agoraphobia with panic disorder F40.01 ; Attention-deficit hyperactivity disorder, combined type F90.2 and Dysthymic disorder F34.1 [facility] [address] [address] Aug, [facility] [address] [address] Aug, [facility] [id number] [place] [id number] Aug, [facility] [id number] [address] Aug, Dysthymic disorder F34.1 ; Generalized anxiety disorder F41.1 and ADHD (attention deficit hyperactivity disorder), combined type F90.2 [facility] [id number] [address] Aug, ADHD (attention deficit hyperactivity disorder), combined type F90.2 ; Generalized anxiety disorder F41.1 and Dysthymic disorder F34.1 [facility] [id number] [place] [address] Jul, Urinary tract infection, site not specified N39.0 ; Hypotension, unspecified I95.9 and Breast cancer screening Z12.39 [facility] [id number] [address] Jul, [facility] [id number] [place] [address] Jul, [facility] [id number] [place] [address] Jul, Urinary tract infection, site not specified N39.0 ; Nausea R11.0 ; Gastroenteritis K52.9 ; Renal failure N19 and Other hypotension I95.89 [facility] [id number] [address] Jul, [facility] [id number] [place] [address] Jul, [facility] [id number] [place] [address] Jul, [facility] [id number] [place] [address] Jun, [facility] [id number] [place] [address] Jun, Major depression in partial remission 296.25 ; Generalized anxiety disorder 300.02 and ADHD, predominantly inattentive type 314.01 [place] [id number] [place] [address] May, [place] [id number] [place] [address] Apr, Major depressive disorder, recurrent episode, severe, without mention of psychotic behavior 296.33 ; Agoraphobia with panic disorder 300.21 and Generalized anxiety disorder 300.[address] [address] Apr, ADHD (attention deficit hyperactivity disorder), combined type 314.01 ; Generalized anxiety disorder 300.02 and Dysthymic disorder 300.[address] [address] Apr, CAD (coronary artery disease) 414.00 ; HTN (hypertension) 401.9 and Tobacco use 305.[address] [address] Apr, [place] [id number] [place] [address] Mar, ADHD (attention deficit hyperactivity disorder), combined type 314.01 ; Generalized anxiety disorder 300.02 ; Dysthymic disorder 300.4 ; No condition on [place] II V71.09 ; Rheumatoid arthritis 714.0 ; Incontinence 788.30 ; Irritable bowel syndrome 564.1 ; Osteoporosis 733.00 and Chronic pain 338.29 [place] [id number] [place] [address] Mar, Agoraphobia with panic disorder 300.21 and Major depressive disorder, recurrent episode, moderate 296.[address] [address] Mar, [place] [id number] [place] [address] February, [address] [address] February, Agoraphobia with panic disorder 300.21 and Major depressive disorder, recurrent episode, moderate 296.32 [facility] [id number] [place] [address] February, [facility] [id number] [address] Jan, [facility] [id number] [place] [address] Jan, [facility] [id number] [place] [address] Dec, [facility] [id number] [place] [address] Dec, [facility] [id number] [place] [address] Dec, [facility] [id number] [place] [address] Dec, [facility] [id number] [address] Dec, [facility] [address] [address] Dec, [facility] [address] [address] Nov, [facility] [address] [address] Nov, [facility] [id number] [address] Nov, [facility] [id number] [address] Nov, [facility] [id number] [address] Nov, [facility] [id number] [place] [address], [place] [address] 17 Nov, 2014 [facility] [place] [facility] [address] [id number] [place] [address] Nov, [facility] [place] [facility] [address] [id number] [place] [address] Nov, [facility] [place] [facility] [address] [id number] [place] [address] Oct, [facility] [place] [facility] [address] [id number] [place] [address] Oct, [facility] [place] [facility] [address] [id number] [place] [address] Oct, [facility] [place] [facility] [address] [id number] [place] [address] Oct, [facility] [place] [facility] [address] [id number] [place] [address] Oct, [facility] [place] [facility] [address] [id number] [place] [address] Oct, [facility] [place] [facility] [address] [id number] [place] [address] Sep, [facility] [place] [facility] [address] [id number] [place] [address] Sep, [facility] [place] [facility] [address] [id number] [place] [address] Sep, [facility] [place] [facility] [address] [id number] [place] [address] Sep, [facility] [place] [facility] [address] [id number] [place] [address] Sep, [facility] [place] [facility] [address] [id number] [place] [address] Sep, [facility] [place] [facility] [address] [id number] [place] [address] Sep, [facility] [place] [facility] [address] [id number] [place] [address] Aug, [facility] [place] [facility] [address] [id number] [place] [address] Aug, [facility] [place] [facility] [address] [id number] [place] [address] Aug, [facility] [place] [facility] [address] [id number] [place] [address] Aug, [facility] [place] [facility] [address] [id number] [place] [address] Aug, [facility] [place] [facility] [address] [id number] [place] [address] Aug, [facility] [place] [facility] [address] [id number] [place] [address] Jul, [facility] [place] [facility] [address] [id number] [place] [address] Jul, [facility] [place] [facility] [address] [id number] [place] [address] Jul, [facility] [place] [facility] [address] [id number] [place] [address] Jul, [facility] [place] [facility] [address] [id number] [place] [address] Jul, [facility] [place] [facility] [address] [id number] [address] Jul, [facility] [place] [facility] [address] [id number] [place] [address] Jun, [facility] [place] [facility] [address] [id number] [place] [address] Jun, [facility] [place] [facility] [address] [id number] [place] [address] May, [facility] [place] [facility] [address] [id number] [place] [address] May, [facility] [place] [facility] [address] [id number] [place] [address] Apr, [facility] [place] [facility] [address] [id number] [place] [address] Apr, [facility] [place] [facility] [address] [id number] [place] [address] Apr, [facility] [place] [facility] [address] [id number] [place] [address] Apr, [facility] [place] [facility] [address] [id number] [place] [address] Mar, [facility] [place] [facility] [address] [id number] [place] [address] Mar, [facility] [place] [facility] [address] [id number] [place] [address] Mar, [facility] [place] [facility] [address] [id number] [place] [address] Mar, [facility] [place] [facility] [address] [id number] [place] [address] February, [facility] [place] [facility] [address] [id number] [place] [address] February, [facility] [place] [facility] [address] [id number] [place] [address] February, [facility] [place] [facility] [address] [id number] [place] [address] February, [facility] [place] [facility] [address] [id number] [place] [address] February, [facility] [place] [facility] [address] [id number] [place] [address] February, [facility] [place] [facility] [address] [id number] [place] [address] Jan, [facility] [place] [facility] [address] [id number] [place] [address] Jan, [facility] [address] [id number] [place] [address] Dec, [facility] [place] [facility] [address] [id number] [place] [address] Dec, [facility] [address] [id number] [place] [address] Nov, [facility] [place] [facility] [address] [id number] [place] [address] Nov, [facility] [address] [id number] [place] [address] Oct, [facility] [place] [facility] [address] [id number] [place] [address] Oct, [facility] [address] [id number] [place] [address] Oct, [facility] [address] [id number] [place] [address] Oct, [facility] [address] [id number] [place] [address] Sep, [facility] [address] [id number] [place] [address] Sep, [facility] [place] [facility] [address] [id number] [place] [address] Sep, [facility] [place] [facility] [address] [id number] [place] [address] Sep, [facility] [place] [facility] [address] [id number] [place] [address] Sep, [facility] [place] [facility] [address] [id number] [place] [address] Sep, [facility] [place] [facility] [address] [id number] [place] [address] Sep, [facility] [place] [facility] [address] [id number] [place] [address] Sep, [facility] [place] [facility] [address] [id number] [place] [address] Aug, [facility] [place] [facility] [address] [id number] [place] [address] Aug, [facility] [place] [facility] [address] [id number] [place] [address] Aug, [facility] [place] [facility] [address] [id number] [place] [address] Aug, [facility] [place] [facility] [address] [id number] [place] [address] Aug, [facility] [place] [facility] [address] [id number] [place] [address] Aug, [facility] [place] [facility] [address] [id number] [place] [address] Aug, [facility] [place] [facility] [address] [id number] [place] [address] Aug, [facility] [place] [facility] [address] [id number] [address] Aug, [facility] [place] [facility] [address] [id number] [address] Jul, [facility] [place] [facility] [address] [id number] [address] Jun, [facility] [place] [facility] [address] [id number] [place] [address] May, [facility] [place] [facility] [address] [id number] [address] May, [facility] [place] [facility] [address] [id number] [address] May, [facility] [place] [facility] [address] [id number] [place] [address] Apr, [facility] [address] [id number] [place] [address] Mar, [facility] [place] [facility] [address] [id number] [place] [address] February, [facility] [address] [id number] [place] [address] Oct, [facility] [place] [facility] [address] [id number] [place] [address] Oct, [facility] [address] [id number] [place] [address] Oct, [facility] [place] [facility] [address] [id number] [place] [address] Oct, [facility] [address] [id number] [place] [address] Oct, [facility] [place] [facility] [address] [id number] [place] [address] Oct, [facility] [place] [facility] [address] [id number] [place] [address] Sep, [facility] [place] [facility] [address] [id number] [place] [address] Sep, [facility] [place] [facility] [address] [id number] [place] [address] Aug, [facility] [place] [facility] [address] [id number] [place] [address] Aug, [facility] [place] [facility] [address] [id number] [place] [address] Jul, [facility] [place] [facility] [address] [id number] [place] [address] Jul, [facility] [place] [facility] [address] [id number] [place] [address] Jul, [facility] [place] [facility] [address] [id number] [place] [address] Jul, [facility] [place] [facility] [address] [id number] [place] [address] Jul, [facility] [place] [facility] [address] [id number] [place] [address] Jul, [facility] [place] [facility] [address] [id number] [place] [address] Jul, [facility] [place] [facility] [address] [id number] [place] [address] Jul, [facility] [place] [facility] [address] [id number] [place] [address] Jun, [facility] [place] [facility] [address] [id number] [place] [address] Jun, [facility] [place] [facility] [address] [id number] [place] [address] May, [facility] [place] [facility] [address] [id number] [place] [address] Apr, [facility] [place] [facility] [address] [id number] [place] [address] Mar, [facility] [place] [facility] [address] [id number] [place] [address] Mar, [facility] [place] [facility] [address] [id number] [place] [address] Mar, [facility] [place] [facility] [address] [id number] [place] [address] Mar, [facility] [place] [facility] [address] [id number] [place] [address] Jan, [facility] [place] [facility] [address] [id number] [place] [address] Nov, [facility] [place] [facility] [address] [id number] [address] Nov, [facility] [address] [facility] [id number] [address] Nov, [facility] [address] [facility] [id number] [address] Oct, [facility] [address] [facility] [id number] [place] [address] Sep, [facility] [address] [facility] [id number] [place] [address] Sep, [facility] [address] [facility] [id number] [place] [address] Aug, [facility] [address] [facility] [id number] [address] Aug, [facility] [address] [address] Aug, [facility] [address] [facility] [id number] [address] Aug, [facility] [address] [address] Jul, [facility] [address] [facility] [id number] [address] May, [facility] [address] [address] Jan, [facility] [address] [facility] [id number] [place] [address] Nov, [facility] [address] [facility] [id number] [address] Apr, [facility] [address] [facility] [id number] [address] Dec, [facility] [address] [address] 12 Nov, 2008 IMMUNIZATIONS No Known Immunizations SOCIAL HISTORY Never Assessed REASON FOR VISIT Fdc admission PLAN OF CARE Activity Details Follow Up prn Reason: VITAL SIGNS MEDICATIONS Medication Instructions Dosage Frequency Start Date End Date Duration Status Pantoprazole Sodium 40 mg Orally Once a day 1 tablet 24h 90 Active Klor-Con M20 20 MEQ Orally Once a day 1 tablet with food 24h 30 day(s) Active Albuterol Sulfate (2.5 MG/3ML) 0.083% Inhalation every 4 hours 3 ml as needed for cough or wheeze 4h 13 Jul, 2014 Not-Taking Acetaminophen 500 mg Orally every 8 hrs 2 capsules as needed 8h Active Montelukast Sodium 10 mg Orally Once a day at bedtime 1 tablet May, 30 day(s) Active Xanax 0.5 MG Orally daily prn 1 tablet Sep, 30 days Not-Taking Gabapentin 600 MG Orally Three times a day 1 capsule 8h 07 Nov, 2016 30 Active Flonase 50 MCG/ACT Nasally twice a day 1 spray in each nostril 12h Mar, Active Cyclobenzaprine HCl 10 MG Orally 2 times a day 1 tablet as needed 12h Jul, 30 Active Alprazolam 0.5 MG Orally Twice a day as needed 1 tablet Jun, 28 days Active Clopidogrel Bisulfate 75 MG Orally Once a day 1 tablet 24h 30 Active Levocetirizine Dihydrochloride 5 mg Orally Once a day 1 tablet in the evening 24h Mar, 30 day(s) Active Metoprolol Tartrate 25 MG Orally Twice a day 1 tablet with food 12h Active Haloperidol 0.5 MG Orally twice a day 1 tablet 12h Active Magnesium Oxide 400 mg Orally Once a day 1 tablet 24h Jun, Jul, Active Dicyclomine HCl 20 mg Orally once a day 1 tablet as needed 24h February, Active Ambien 5 mg Orally Once a day 1 tablet at bedtime as needed 24h Jun, 28 days Active Xeljanz 5 mg 1 Tablet by Oral route 2 times per day Dec, Active Nicoderm CQ 7 MG/24HR Transdermal Once a day 1 patch to skin 24h 25 Jun, 2018 Aug, 30 day(s) Active MiraLax - Orally Once a day 17gm 24h Active Enoxaparin Sodium 40 MG/0.4ML Subcutaneous Once a day 0.4 ml 24h Jun, Jul, 30 day(s) Active Furosemide 20 MG Orally Once a day 1 tablet 24h 30 day(s) Active Tramadol HCl 50 mg Orally every 4-6hrs 1-2 tablets as neede Active Guaifenesin 400 mg Orally 3 times a day 1 tablet 8h 15 May, 2018 Jul, 30 days Active Amlodipine Besylate 10 MG Orally Once a day 1 tablet 24h 30 day(s) Active Advair Diskus 100-50 MCG/DOSE Inhalation Twice a day 1 puff 12h Jul, 30 Active Abilify 5 MG Orally Once a day 1 tablet 24h 30 day(s) Active Venlafaxine HCl ER 150 MG Orally Once a day 2 capsules 24h Nov, Active Ventolin HFA 108 (90 Base) MCG/ACT Inhalation every 4 hrs 2 puffs as needed 4h Aug, Active Simvastatin 40 MG Orally Once a day 1 tablet 24h Active RESULTS No Results PROCEDURES Procedure Date Ordered Result Body Site [facility] VISIT ESTABLISHED PATIENT Jul 05, 2018 INSTRUCTIONS MEDICATIONS ADMINISTERED No Known Medications MEDICAL (GENERAL) HISTORY Type Description Date Medical History Cardiovascular [id number]-Crfqwdck, non-obstructive per HC (01/2011) Dr. Mendoza Medical History Stress test 03/07/13-Dr. Kelly Dietrich normal Medical History Hypertension Medical History Asthma Medical History Gastrointestinal Disorder--IBS, GERD, Hx of fatty liver Medical History Hernia 1978 Medical History Cervical dysplasia 02/16-Pap LGSIL/[place]-mild dysplasia Medical History Hyperlipidemia Medical History Rheumatoid [...]
--- OUTSIDE RECORDS SUMMARY | 2019-05-22 07:50 | XMS REPORT ---
Author Author AMBER LEON [facility] Address [address] [place] [address] Care Team Providers Care Composition Professor Name Role Phone AMBER LEON Unavailable PROBLEMS ALLERGIES No Information ENCOUNTERS IMMUNIZATIONS No Known Immunizations SOCIAL HISTORY No smoking Hx information available REASON FOR VISIT PLAN OF CARE VITAL SIGNS MEDICATIONS RESULTS No Results PROCEDURES No Known procedures INSTRUCTIONS MEDICATIONS ADMINISTERED No Known Medications MEDICAL (GENERAL) HISTORY
--- OUTSIDE RECORDS SUMMARY | 2019-05-22 07:51 | XMS REPORT ---
Author Author LORI SNOWDEN Organization [facility] Address [address] [place] [address] Care Team Providers Care Retail Support Specialist Name Role Phone LORI SNOWDEN Unavailable PROBLEMS Type Condition ICD9-CM Code DBS12-ZU Code Onset Dates Condition Status SNOMED Code Problem ADHD (attention deficit hyperactivity disorder), combined type F90.2 Active 27225709 Problem Generalized anxiety disorder F41.1 Active 99906275 Problem Asthma J45.909 Active 847690681 Problem Dysthymic disorder F34.1 Active 73203395 Problem Hypertension I10 Active 88390005 Problem Sleep apnea in adult G47.30 Active 98835453 Problem Chronic pain syndrome G89.4 Active 408985454 Problem Rheumatoid arthritis involving multiple sites, unspecified rheumatoid factor presence M06.9 Active 109256910 Problem Anxiety F41.9 Active 67188925 Problem Gastroesophageal reflux disease with esophagitis K21.0 Active 575036929 Problem Primary insomnia F51.01 Active 4932734 Problem Chronic obstructive pulmonary disease, unspecified COPD type J44.9 Active 79913917 Problem Arteriosclerotic coronary artery disease I25.10 Active 83822013 Problem Weight gain R63.5 Active 3246320 Problem Rheumatoid arthritis M06.9 Active 45193677 Problem Panic attacks F41.0 Active 123960464 Problem Irritable bowel syndrome with diarrhea K58.0 Active 257618140 Problem Seasonal allergies J30.2 Active 298567541 Problem Mild episode of recurrent major depressive disorder F33.0 Active 689670372 Problem Neuropathy G62.9 Active 763261923 Problem Other insomnia G47.09 Active 087961250 Problem Mixed hyperlipidemia E78.2 Active 245246078 Problem Hyperinsulinemia E16.1 Active 54773638 Problem Other fci (current) drug therapy Z79.899 Active 197823379 Problem Cerebrovascular accident (CVA), unspecified mechanism I63.9 Active 375601139 Problem Chronic obstructive pulmonary disease, unspecified J44.9 Active 68831811727314889 Problem Obstructive sleep apnea G47.33 Active 07084050 ALLERGIES Substance Reaction Event Type Date Status Breo Ellipta Nausea, dizziness Drug Allergy May, Active Solu-Medrol rash, swelling Drug Allergy May, Active Paxil Unknown Drug Allergy May, Active Hydrocodone-Acetaminophen hives Drug Allergy May, Active Doxycycline Hyclate local swellling Drug Allergy May, Active Codeine Sulfate hives Drug Allergy May, Active Oxybutynin 5 Ea Tablet mouth sores Non Drug Allergy May, Active Iodinated Contrast Media - Iv Dye unknown Non Drug Allergy May, Active ENCOUNTERS Encounter Location Date Diagnosis [place] [address] [address] Jul, Via [facility] [address] [place], [place] [id number] Jun, History of acute respiratory failure Z87.09 ; Weight gain R63.5 and Tobacco abuse Z72.0 [place] [address] [address] Jun, [place] [address] [address] May, Primary insomnia F51.01 [place] [address] [place] [id number] [place] [address] May, Mild episode of recurrent major depressive disorder F33.0 [place] [address] [place] [id number] [place] [address] May, [place] [address] [place] [id number] [place] [address] May, Chronic obstructive pulmonary disease, unspecified COPD type J44.9 ; Primary insomnia F51.01 ; Fatigue, unspecified type R53.83 and Weight gain R63.5 [place] [address] [place] [id number] [place] [address] 06 May, 2018 Thrush B37.0 [place] [address] [address] May, Mild episode of recurrent major depressive disorder F33.0 and Generalized anxiety disorder F41.1 [facility] [address] [place] [id number] [place] [address] May, Thrush B37.0 [facility] [address] [place] [id number] [place] [address] Apr, Cough R05 [facility] [address] [place] [id number] [place] [address] Mar, Mild episode of recurrent major depressive disorder F33.0 [facility] [address] [place] [id number] [place] [address] Mar, Mild episode of recurrent major depressive disorder F33.0 and Generalized anxiety disorder F41.1 [place] [address] [place] [id number] [place] [address] Mar, Seasonal allergies J30.2 [facility] [address] [place] [id number] [place] [address] Mar, Seasonal allergies J30.2 [facility] [address] [place] [id number] [place] [address] February, Generalized anxiety disorder F41.1 [facility] [address] [place] [address] February, Cough R05 and Seasonal allergies J30.2 [facility] [address] [place] [id number] [place] [address] February, Generalized anxiety disorder F41.1 and Mild episode of recurrent major depressive disorder F33.0 [facility] [address] [place] [id number] [place] [address] February, 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 manager (current) drug therapy Z79.899 ; Anxiety F41.9 ; Panic attacks F41.0 and Irritable bowel syndrome with diarrhea K58.0 [facility] [address] [place] [id number] [place] [address] February, [facility] [address] [place] [address] Jan, Mixed hyperlipidemia E78.2 [facility] [address] [place] [id number] [place] [address] Jan, [facility] [address] [place] [id number] [place] [address] Jan, [facility] [address] [place] [id number] [place] [address] Jan, [facility] [address] [place] [id number] [place] [address] Jan, [facility] [address] [place] [id number] [place] [address] Dec, [facility] [address] [place] [id number] [place] [address] Dec, [facility] [address] [place] [id number] [place] [address] Dec, [facility] [address] [place] [id number] [place] [address] Nov, Dysthymic disorder F34.1 [facility] [address] [place] [id number] [place] [address] Oct, [facility] [address] [place] [id number] [place] [address] Oct, [facility] [address] [place] [address] Oct, [facility] [address] [place] [id number] [place] [address] Oct, Diarrhea, unspecified type R19.7 and Dysuria R30.0 [facility] [address] [address] Oct, [facility] [address] [place] [address] Sep, [facility] [address] [place] [id number] [place] [address] Sep, [facility] [address] [place] [id number] [place] [address] Sep, Anxiety F41.9 [place] [address] [address] Sep, Cerebrovascular accident (CVA), unspecified mechanism I63.9 ; Mixed hyperlipidemia E78.2 ; Gastroesophageal reflux disease with esophagitis K21.0 and Anxiety F41.9 [place] [address] [address] Sep, [place] [address] [place] [id number] [place] [address] Aug, Chronic obstructive pulmonary disease, unspecified J44.9 ; Asthma J45.909 ; Nausea R11.0 ; Dysthymic disorder F34.1 ; Cerebrovascular accident (CVA), unspecified mechanism I63.9 and Rheumatoid arthritis M06.9 [place] [address] [place] [id number] [place] [address] Aug, Nausea R11.0 ; Encounter for immunization Z23 ; Sleep apnea in adult G47.30 ; Rheumatoid arthritis involving multiple sites, unspecified rheumatoid factor presence M06.9 ; Generalized anxiety disorder F41.1 ; Dysthymic disorder F34.1 and Asthma J45.909 [place] [address] [place] [address] Jul, [place] [address] [place] [id number] [place] [address] May, ADHD (attention deficit hyperactivity disorder), combined type F90.2 ; Generalized anxiety disorder F41.1 and Persistent depressive disorder F34.1 [place] [address] [place] [id number] [place] [address] May, Cerebrovascular accident (CVA), unspecified mechanism I63.9 [place] [address] [place] [id number] [place] [address] Apr, Mixed hyperlipidemia E78.2 and Cerebrovascular accident (CVA), unspecified mechanism I63.9 [place] [address] [place] [id number] [place] [address] Apr, Generalized anxiety disorder F41.1 [place] [address] [address] Apr, Bronchitis J40 and Tobacco use Z72.0 [place] [address] [address] Apr, Mixed hyperlipidemia E78.2 [place] [address] [address] Apr, 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 manager (current) drug therapy Z79.899 [place] [address] [address] Apr, [place] [address] [address] Apr, Generalized anxiety disorder F41.1 [place] [address] [address] Apr, Obstructive sleep apnea G47.33 and Hyperinsulinemia E16.[address] [address] Apr, ADHD (attention deficit hyperactivity disorder), combined type F90.2 ; Generalized anxiety disorder F41.1 and Persistent depressive disorder F34.1 [place] [address] [address] Mar, [place] [address] [address] Mar, Generalized anxiety disorder F41.1 [place] [address] [address] Mar, Tarsal tunnel syndrome of both lower extremities G57.53 [place] [address] [place] [id number] [place] [address] February, [place] [address] [place] [id number] [place] [address] February, [place] [address] [place] [id number] [place] [address] February, Asthma J45.909 [place] [address] [address] February, Generalized anxiety disorder F41.1 [place] [address] [address] February, Hypoxemia R09.02 ; Hyperglycemia R73.9 ; Rheumatoid arthritis M06.9 and Generalized anxiety disorder F41.1 [place] [address] [address] February, [place] [address] [place] [id number] [place] [address] Jan, Chronic obstructive pulmonary disease, unspecified J44.9 [place] [address] [place] [id number] [place] [address] Jan, Chronic pain syndrome G89.4 [place] [address] [place] [id number] [place] [address] Jan, Hypoxemia R09.02 [place] [address] [place] [id number] [place] [address] Jan, [place] [address] [place] [id number] [place] [address] Jan, Chronic obstructive pulmonary disease, unspecified J44.9 ; Hypoxemia R09.02 ; Other insomnia G47.09 and Left anterior shoulder pain M25.512 [place] [address] [place] [id number] [place] [address] Jan, Numbness in feet R20.0 and Neuropathy G62.9 [facility] [address] [address] Jan, [facility] [address] [place] [address] Dec, Acute pain of left shoulder M25.512 [facility] [address] [place] [id number] [place] [address] Dec, Acute pain of left shoulder M25.512 [facility] [address] [place] [address] Dec, Generalized anxiety disorder F41.1 [facility] [address] [place] [id number] [place] [address] Dec, Generalized anxiety disorder F41.1 [facility] [address] [place] [id number] [place] [address] Nov, ADHD (attention deficit hyperactivity disorder), combined type F90.2 ; Generalized anxiety disorder F41.1 and Persistent depressive disorder F34.1 [facility] [address] [place] [address] Nov, Acute pain of left shoulder M25.512 [facility] [address] [place] [address] Nov, ADHD (attention deficit hyperactivity disorder), combined type F90.2 ; Generalized anxiety disorder F41.1 and Persistent depressive disorder F34.1 [facility] [address], [place] [address] Nov, Chronic pain syndrome G89.4 [facility] [address] [place] [address] 13 Nov, 2016 Chronic pain syndrome G89.4 [facility] [address], [place] [address] 08 Nov, 2016 Acute pain of left shoulder M25.512 [facility] [address] [place] [address] Nov, Generalized anxiety disorder F41.1 [place] [address] [place] [id number] [place] [address] Nov, Acute pain of left shoulder M25.512 [place] [address] [place] [id number] [place] [address] Nov, ADHD (attention deficit hyperactivity disorder), combined type F90.2 ; Generalized anxiety disorder F41.1 and Persistent depressive disorder F34.1 [place] [address] [place] [id number] [place] [address] Nov, Acute pain of left shoulder M25.512 ; Generalized anxiety disorder F41.1 ; Chronic pain syndrome G89.4 ; Hyperinsulinemia E16.1 ; Pain of left foot M79.672 and Pain in right foot M79.671 [place] [address] [place] [id number] [place] [address] Oct, ADHD (attention deficit hyperactivity disorder), combined type F90.2 ; Generalized anxiety disorder F41.1 and Dysthymic disorder F34.1 [place] [address] [place] [id number] [place] [address] Sep, [place] [address] [place] [id number] [place] [address] Sep, [place] [address] [place] [id number] [place] [address] Sep, Routine gynecological examination V72.31 ; Cervical cancer screening Z12.4 ; Breast cancer screening Z12.39 ; Colon cancer screening Z12.11 ; Hypokalemia E87.6 ; Herpes simplex type 1 infection B00.9 and Abscess of right axilla L02.411 [place] [address] [place] [address] Sep, [place] [address] [place] [id number] [place] [address] Sep, ADHD (attention deficit hyperactivity disorder), combined type F90.2 ; Generalized anxiety disorder F41.1 and Dysthymic disorder F34.1 [place] [address] [place] [id number] [place] [address] Aug, [place] [address] [place] [id number] [place] [address] Aug, [place] [address] [address] Aug, Generalized anxiety disorder F41.1 [place] [address] [place] [id number] [place] [address] Aug, ADHD (attention deficit hyperactivity disorder), combined type F90.2 ; Generalized anxiety disorder F41.1 and Dysthymic disorder F34.1 [place] [address] [address] Jul, Chronic pain syndrome G89.4 ; Hypertension I10 ; Hypokalemia E87.6 ; Asthma J45.909 and Nausea R11.0 [place] [address] [place] [id number] [place] [address] Jul, [place] [address] [place] [id number] [place] [address] Jul, Asthma J45.909 [place] [address] [address] Jul, ADHD (attention deficit hyperactivity disorder), combined type F90.2 ; Generalized anxiety disorder F41.1 and Dysthymic disorder F34.1 [place] [address] [place] [id number] [place] [address] Jul, [place] [address] [address] Jul, Hypertension I10 ; Arteriosclerotic coronary artery disease I25.10 ; Mixed hyperlipidemia E78.2 ; 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 manager (current) drug therapy Z79.899 and Hyperglycemia R73.9 [place] [address] [place] [id number] [place] [address] 16 Jun, 2016 Hypokalemia E87.6 and Hyperglycemia R73.9 [place] [address] [place] [id number] [place] [address] 14 Jun, 2016 [place] [address] [address] 13 Jun, 2016 Abnormal kidney function N28.9 [place] [address] [place] [id number] [place] [address] Jun, [place] [address] [address] Jun, ADHD (attention deficit hyperactivity disorder), combined type F90.2 ; Generalized anxiety disorder F41.1 and Dysthymic disorder F34.1 [place] [address] [address] Jun, Generalized anxiety disorder F41.1 and Dysthymic disorder F34.1 [place] [address] [place] [id number] [place] [address] Jun, Hypokalemia E87.6 [place] [address] [place] [id number] [place] [address] May, Hypokalemia E87.6 ; Vertigo R42 and Hyperinsulinemia E16.1 [place] [address] [place] [id number] [place] [address] May, [place] [address] [place] [id number] [place] [address] May, Abnormal kidney function N28.9 ; Hyperinsulinemia E16.1 and Nausea R11.0 [place] [address] [place] [id number] [place] [address] May, Hypokalemia E87.6 ; Nausea R11.0 ; Epigastric pain R10.13 ; Dehydration E86.0 ; Diaphoresis R61 and Right arm pain M79.601 [place] [address] [place] [id number] [place] [address] May, [place] [address] [place] [id number] [place] [address] May, Hypokalemia E87.6 [place] [address] [place] [id number] [place] [address] May, Hypokalemia E87.6 [place] [address] [place] [id number] [place] [address] Apr, [place] [address] [place] [id number] [place] [address] Apr, ADHD (attention deficit hyperactivity disorder), combined type F90.2 ; Generalized anxiety disorder F41.1 and Dysthymic disorder F34.1 [place] [address] [address] Apr, Right arm pain M79.601 and Hyperinsulinemia E16.1 [place] [address] [place] [id number] [place] [address] Mar, [place] [address] [place] [id number] [place] [address] Mar, [place] [address] [place] [id number] [place] [address] Mar, Hyperinsulinemia E16.1 ; Hyperlipidemia, unspecified hyperlipidemia type E78.5 ; Central venous catheter in place Z78.9 ; Generalized anxiety disorder F41.1 and Urinary tract infection, site not specified N39.0 [place] [address] [place] [id number] [place] [address] Mar, ADHD (attention deficit hyperactivity disorder), combined type F90.2 ; Generalized anxiety disorder F41.1 and Dysthymic disorder F34.1 [place] [address] [place] [id number] [place] [address] February, ADHD (attention deficit hyperactivity disorder), combined type F90.2 ; Generalized anxiety disorder F41.1 and Dysthymic disorder F34.1 [place] [address] [place] [id number] [place] [address] February, [place] [address] [place] [id number] [place] [address] February, [place] [address] [place] [id number] [place] [address] February, Hypertension I10 and Weight gain R63.5 [place] [address] [place] [id number] [place] [address] February, Major depressive disorder, recurrent, moderate F33.1 and Generalized anxiety disorder F41.1 [place] [address] [place] [id number] [place] [address] February, ADHD (attention deficit hyperactivity disorder), combined type F90.2 ; Generalized anxiety disorder F41.1 and Dysthymic disorder F34.1 [place] [address] [place] [id number] [place] [address] February, [place] [address] [place] [id number] [place] [address] February, Asthma J45.909 ; Weight gain R63.5 ; Hypertension I10 ; Rheumatoid arthritis M06.9 and Chronic pain syndrome G89.4 [place] [address] [place] [id number] [place] [address] Jan, ADHD (attention deficit hyperactivity disorder), combined type F90.2 ; Generalized anxiety disorder F41.1 and Dysthymic disorder F34.1 [place] [address] [place] [id number] [place] [address] Dec, ADHD (attention deficit hyperactivity disorder), combined type F90.2 ; Generalized anxiety disorder F41.1 and Dysthymic disorder F34.1 [place] [address] [place] [id number] [place] [address] Dec, [facility] [address], [place] [address] Nov, [facility] [address], [place] [address] Nov, [facility] [address] [place] [address] Nov, [facility] [address], [place] [address] Nov, [facility] [address] [place] [address] Oct, [facility] [address], [place] [address] Oct, [facility] [address], [place] [address] Oct, [facility] [address], [place] [address] Sep, [facility] [address], [place] [address] Sep, [facility] [address], [place] [address] Sep, Agoraphobia with panic disorder F40.01 ; Attention-deficit hyperactivity disorder, combined type F90.2 and Dysthymic disorder F34.1 [facility] [address], [place] [address] Aug, [facility] [address] [address] Aug, [facility] [address] [address] Aug, [facility] [id number] [address] Aug, Dysthymic disorder F34.1 ; Generalized anxiety disorder F41.1 and ADHD (attention deficit hyperactivity disorder), combined type F90.2 [facility] [id number] [place] [address] Aug, ADHD (attention deficit hyperactivity disorder), combined type F90.2 ; Generalized anxiety disorder F41.1 and Dysthymic disorder F34.1 [facility] [id number] [place] [address] Jul, Urinary tract infection, site not specified N39.0 ; Hypotension, unspecified I95.9 and Breast cancer screening Z12.39 [facility] [id number] [place] [address] Jul, [facility] [id number] [place] [address] Jul, [facility] [id number] [place] [address] Jul, Urinary tract infection, site not specified N39.0 ; Nausea R11.0 ; Gastroenteritis K52.9 ; Renal failure N19 and Other hypotension I95.89 [facility] [id number] [place] [address] Jul, [facility] [id number] [place] [address] Jul, [facility] [id number] [place] [address] Jul, [facility] [id number] [place] [address] Jun, [facility] [id number] [place] [address] Jun, Major depression in partial remission 296.25 ; Generalized anxiety disorder 300.02 and ADHD, predominantly inattentive type 314.01 [facility] [id number] [place] [address] May, [facility] [id number] [place] [address] Apr, Major depressive disorder, recurrent episode, severe, without mention of psychotic behavior 296.33 ; Agoraphobia with panic disorder 300.21 and Generalized anxiety disorder 300.02 [id number] [place] [address] Apr, ADHD (attention deficit hyperactivity disorder), combined type 314.01 ; Generalized anxiety disorder 300.02 and Dysthymic disorder 300.4 [id number] [place] [address] Apr, CAD (coronary artery disease) 414.00 ; HTN (hypertension) 401.9 and Tobacco use 305.1 [id number] [place] [address] Apr, [id number] [place] [address] Mar, ADHD (attention deficit hyperactivity disorder), combined type 314.01 ; Generalized anxiety disorder 300.02 ; Dysthymic disorder 300.4 ; No condition on [place] V71.09 ; Rheumatoid arthritis 714.0 ; Incontinence 788.30 ; Irritable bowel syndrome 564.1 ; Osteoporosis 733.00 and Chronic pain 338.29 [id number] [place] [address] Mar, Agoraphobia with panic disorder 300.21 and Major depressive disorder, recurrent episode, moderate 296.32 [id number] [place] [address] Mar, [id number] [place] [address] February, [id number] [place] [address] February, Agoraphobia with panic disorder 300.21 and Major depressive disorder, recurrent episode, moderate 296.32 [id number] [place] [address] February, [facility] [place] [facility] [address] [id number] [place] [address] Jan, [facility] [place] [facility] [address] [id number] [place] [address] Jan, [facility] [place] [facility] [address] [facility] [id number] [place] [address] Dec, [facility] [place] [facility] [address] [facility] [id number] [place] [address] Dec, [facility] [place] [facility] [address] [id number] [place] [address] Dec, [facility] [place] [facility] [address] [facility] [id number] [place] [address] Dec, [facility] [place] [facility] [address] [id number] [place] [address] Dec, [facility] [place] [facility] [address] [facility] [id number] [place] [address] Dec, [facility] [place] [facility] [address] [facility] [id number] [place] [address] Nov, [facility] [place] [facility] [address] [facility] [id number] [place] [address] Nov, [facility] [place] [facility] [address] [facility] [id number] [place] [address] Nov, [facility] [place] [facility] [address] [facility] [id number] [address] Nov, [facility] [place] [facility] [address] [facility] [id number] [place] [address] Nov, [facility] [place] [facility] [address] [facility] [id number] [address] Nov, [facility] [place] [facility] [address] [facility] [id number], [place] [address] Nov, [facility] [place] [facility] [address] [id number] [place] [address] Nov, [facility] [place] [facility] [address] [id number] [place] [address] Oct, [facility] [place] [facility] [address] [id number] [place] [address] Oct, [facility] [place] [facility] [address] [id number] [place] [address] Oct, [facility] [place] [facility] [address] [id number] [place] [address] Oct, [facility] [place] [facility] [address] [id number] [place] [address] Oct, [facility] [place] [facility] [address] [id number] [place] [address] Oct, [facility] [place] [facility] [address] [id number] [place] [address] Sep, [facility] [place] [facility] [address] [id number] [place] [address] Sep, [facility] [place] [facility] [address] [id number] [place] [address] Sep, [facility] [place] [facility] [address] [id number] [place] [address] Sep, [facility] [place] [facility] [address] [id number] [place] [address] Sep, [facility] [place] [facility] [address] [id number] [place] [address] Sep, [facility] [place] [facility] [address] [id number] [place] [address] Sep, [facility] [place] [facility] [address] [id number] [place] [address] Aug, [facility] [place] [facility] [address] [id number], [place] [address] Aug, [facility] [place] [facility] [address] [id number] [place] [address] Aug, [facility] [place] [facility] [address] [id number] [place] [address] Aug, [facility] [place] [facility] [address] [id number] [place] [address] Aug, [facility] [place] [facility] [address] [id number] [place] [address] Aug, [facility] [place] [facility] [address] [id number] [place] [address] Jul, [facility] [place] [facility] [address] [id number] [place] [address] Jul, [facility] [place] [facility] [address] [id number] [place] [address] Jul, [facility] [place] [facility] [address] [id number] [place] [address] Jul, [facility] [place] [facility] [address] [id number] [place] [address] Jul, [facility] [place] [facility] [address] [id number] [place] [address] Jul, [facility] [place] [facility] [address] [id number], [place] [address] Jun, [facility] [place] [facility] [address] [id number] [place] [address] Jun, [facility] [place] [facility] [address] [id number] [place] [address] May, [facility] [place] [facility] [address] [id number] [place] [address] May, [facility] [place] [facility] [address] [id number] [place] [address] Apr, [facility] [place] [facility] [address] [id number] [place] [address] Apr, [facility] [place] [facility] [address] [id number] [place] [address] Apr, [facility] [place] [facility] [address] [id number] [place] [address] Apr, [facility] [place] [facility] [address] [id number] [place] [address] Mar, [facility] [place] [facility] [address] [id number] [place] [address] Mar, [facility] [place] [facility] [address] [id number] [place] [address] Mar, [facility] [place] [facility] [address] [id number] [place] [address] Mar, [facility] [place] [facility] [address] [id number] [place] [address] February, [facility] [place] [facility] [address] [id number] [place] [address] February, [facility] [place] [facility] [address] [id number] [place] [address] February, [facility] [place] [facility] [address] [id number] [place] [address] February, [facility] [place] [facility] [address] [id number] [place] [address] February, [facility] [place] [facility] [address] [id number] [place] [address] February, [facility] [place] [facility] [address] [id number] [place] [address] Jan, [facility] [place] [facility] [address] [id number] [place] [address] Jan, [facility] [place] [facility] [address] [id number] [place] [address] Dec, [facility] [place] [facility] [address] [id number] [place] [address] Dec, [facility] [place] [facility] [address] [id number] [place] [address] Nov, [facility] [place] [facility] [address] [id number] [place] [address] Nov, [facility] [place] [facility] [address] [id number] [place] [address] Oct, [facility] [place] [facility] [address] [id number] [place] [address] Oct, [facility] [place] [facility] [address] [id number] [place] [address] Oct, [facility] [place] [facility] [address] [id number] [place] [address] Oct, [facility] [place] [facility] [address] [id number] [place] [address] Sep, [facility] [place] [facility] [address] [id number] [place] [address] Sep, [facility] [place] [facility] [address] [id number] [place] [address] Sep, [facility] [place] [facility] [address] [id number], [place] [address] Sep, [facility] [place] [facility] [address] [id number], [place] [address] Sep, [facility] [place] [facility] [address] [id number] [place] [address] Sep, [facility] [place] [facility] [address] [id number], [place] [address] Sep, [facility] [place] [facility] [address] [id number] [place] [address] Sep, [facility] [place] [facility] [address] [id number] [place] [address] Aug, [facility] [place] [facility] [address] [id number] [place] [address] Aug, [facility] [place] [facility] [address] [id number] [place] [address] Aug, [facility] [place] [facility] [address] [id number] [place] [address] Aug, [facility] [place] [facility] [address] [id number] [place] [address] Aug, [facility] [place] [facility] [address] [id number] [place] [address] Aug, [facility] [place] [facility] [address] [id number] [place] [address] Aug, [facility] [place] [facility] [address] [id number] [place] [address] Aug, [facility] [place] [facility] [address] [id number] [place] [address] Aug, [facility] [place] [facility] [address] [id number] [place] [address] Jul, [facility] [place] [facility] [address] [facility] [id number] [place] [address] Jun, [facility] [place] [facility] [address] [id number] [place] [address] May, [facility] [place] [facility] [address] [id number] [place] [address] May, [facility] [place] [facility] [address] [id number] [place] [address] May, [facility] [place] [facility] [address] [id number] [place] [address] Apr, [facility] [place] [facility] [address] [id number] [place] [address] Mar, [facility] [place] [facility] [address] [id number] [place] [address] February, [facility] [address] [id number] [place] [address] Oct, [facility] [place] [facility] [address] [id number] [place] [address] Oct, [facility] [address] [id number] [place] [address] Oct, [facility] [address] [id number] [place] [address] Oct, [facility] [address] [id number] [place] [address] Oct, [facility] [address] [id number] [place] [address] Oct, [facility] [address] [id number] [place] [address] Sep, [facility] [address] [id number] [place] [address] Sep, [facility] [address] [id number] [place] [address] Aug, [facility] [place] [facility] [address] [id number] [place] [address] Aug, [facility] [address] [id number] [place] [address] Jul, [facility] [place] [facility] [address] [id number] [place] [address] Jul, [facility] [place] [facility] [address] [id number] [place] [address] Jul, [facility] [place] [facility] [address] [id number] [place] [address] Jul, [facility] [place] [facility] [address] [id number] [place] [address] Jul, [facility] [place] [facility] [address] [id number] [place] [address] Jul, [facility] [place] [facility] [address] [id number] [place] [address] Jul, [facility] [place] [facility] [address] [id number] [place] [address] Jul, [facility] [place] [facility] [address] [id number] [place] [address] 16 Jun, 2012 [facility] [place] [facility] [address] [id number] [place] [address] Jun, [facility] [place] [facility] [address] [id number] [place] [address] May, [facility] [place] [facility] [address] [facility] [id number] [place] [address] Apr, [facility] [place] [facility] [address] [id number] [place] [address] Mar, [facility] [place] [facility] [address] [id number] [place] [address] Mar, [facility] [place] [facility] [address] [facility] [id number] [place] [address] Mar, [facility] [place] [facility] [address] [id number] [place] [address] Mar, [facility] [place] [facility] [address] [id number] [place] [address] Jan, [facility] [place] [facility] [address] [id number] [place] [address] Nov, [facility] [place] [facility] [address] [facility] [id number] [place] [address] Nov, [facility] [place] [facility] [address] [facility] [id number] [place] [address] Nov, [facility] [place] [facility] [address] [id number] [address] Oct, [facility] [address] [address] Sep, [facility] [address] [id number] [address] Sep, [facility] [address] [address] Aug, [facility] [address] [facility] [id number], [place] [address] Aug, [facility] [address] [address] Aug, [facility] [address] [address] Aug, [facility] [address] [address] Jul, [facility] [address] [address] May, [facility] [address] [address] Jan, [facility] [address] [id number] [address] Nov, [facility] [address] [id number] [address] Apr, [facility] [address] [id number] [address] Dec, [facility] [address] [id number] [address] Nov, IMMUNIZATIONS No Known Immunizations SOCIAL HISTORY Never Assessed REASON FOR VISIT Cough-IKER love, mucus is yellow,wheezing , hard to breath, back is hurting PLAN OF CARE Activity Details Follow Up 4 Weeks Reason:weight gain VITAL SIGNS Height 67 in 2018-05-25 Weight 222.5 lbs 2018-05-25 Temperature 98.8 degrees Fahrenheit 2018-05-25 Heart Rate 76 bpm 2018-05-25 Respiratory Rate 20 2018-05-25 Oximetry on room air:94 % 2018-05-25 BMI 34.84 kg/m2 2018-05-25 Blood pressure systolic 122 mmHg 2018-05-25 Blood pressure diastolic 86 mmHg 2018-05-25 MEDICATIONS Medication Instructions Dosage Frequency Start Date End Date Duration Status Pantoprazole Sodium 40 mg Orally Once a day 1 tablet 24h Sep, 30 days Active Zolpidem Tartrate 5 mg Orally Once a day 1 tablet at bedtime 24h May, 14 days Active Clopidogrel Bisulfate 75 MG Orally Once a day 1 tablet 24h 30 Active Advair Diskus 100-50 MCG/DOSE Inhalation Twice a day 1 puff 12h Jul, 30 Active Albuterol Sulfate (2.5 MG/3ML) 0.083% Inhalation every 4 hours 3 ml as needed for cough or wheeze 4h 13 Jul, 2014 Active Zofran 4 MG Orally 3 times a day 1 tablet 8h May, 7 Active Levocetirizine Dihydrochloride 5 mg Orally Once a day 1 tablet in the evening 24h Mar, 30 day(s) Active Metoprolol Tartrate 25 MG Orally Twice a day 1 tablet with food 12h Active Guaifenesin 400 mg Orally 3 times a day 1 tablet 8h May, Jul, 30 days Active Venlafaxine HCl ER 150 MG Orally Once a day 2 capsules 24h Nov, 30 days Active Simvastatin 40 MG Orally Once a day 1 tablet 24h Active Gabapentin 600 MG Orally Three times a day 1 capsule 8h 07 Nov, 2016 30 Active Cyclobenzaprine HCl 10 MG Orally 2 times a day 1 tablet as needed 12h Jul, 30 Active Tramadol HCl 50 mg Orally 4 times a day PRN PAIN 1-2 tablets Active Nystatin 977901 UNIT/ML Mouth/Throat swish and swallow Four times a day 5 ml 6h May, May, 10 days Active Dicyclomine HCl 20 mg Orally 2 times a day and 1 additional daily prn 1 tablet February, Active Flonase 50 MCG/ACT Nasally Once a day 1 spray in each nostril 24h Mar, 30 days Active Montelukast Sodium 10 mg Orally Once a day at bedtime 1 tablet May, 30 day(s) Active Ventolin HFA 108 (90 Base) MCG/ACT Inhalation every 6 hrs 2 puffs as needed 6h Aug, Active Xeljanz 5 mg 1 Tablet by Oral route 2 times per day Dec, Active Xanax 0.5 MG Orally daily prn 1 tablet Sep, 30 days Active RESULTS No Results PROCEDURES Procedure Date Ordered Result Body Site [facility] May 25, 2018 VENIPUNCT, ROUTINE* May 25, 2018 [facility] VISIT ESTABLISHED PATIENT May 25, 2018 INSTRUCTIONS MEDICATIONS ADMINISTERED No Known Medications MEDICAL (GENERAL) HISTORY Type Description Date Medical History Cardiovascular gsvhszkx-HJB-Julepvji, non-obstructive per HC (01/2011) Dr. Mendoza Medical History Stress test 03/07/13-Dr. Kelly Dietrich normal Medical History Hypertension Medical History Asthma Medical History Gastrointestinal Disorder--IBS, GERD, Hx of fatty liver Medical History Hernia 1978 Medical History Cervical dysplasia 02/16-Pap LGSIL/[facility]-mild dysplasia Medical History Hyperlipidemia Medical History Rheumatoid [...] Kidney injury 07/10/15-07/11/2015 Hospitalization History Symptomatic Hypokalemia/Nause-[facility] 05/13/16 Hospitalization History Stroke 05/03/2017 Hospitalization History stroke 08/24/2017--09/01/2017
--- OUTSIDE RECORDS SUMMARY | 2019-05-22 07:52 | XMS REPORT ---
Author Author LORI SNOWDEN Organization [facility] Address [address] [place] [address] Care Team Providers Care Oracle Iam Consultant Name Role Phone LORI SNOWDEN Unavailable PROBLEMS Type Condition ICD9-CM Code OMY78-RF Code Onset Dates Condition Status SNOMED Code Problem ADHD (attention deficit hyperactivity disorder), combined type F90.2 Active 76118592 Problem Generalized anxiety disorder F41.1 Active 08229050 Problem Asthma J45.909 Active 073727118 Problem Dysthymic disorder F34.1 Active 28669777 Problem Hypertension I10 Active 02897777 Problem Sleep apnea in adult G47.30 Active 69943963 Problem Chronic pain syndrome G89.4 Active 760953889 Problem Rheumatoid arthritis involving multiple sites, unspecified rheumatoid factor presence M06.9 Active 734597956 Problem Anxiety F41.9 Active 18564577 Problem Gastroesophageal reflux disease with esophagitis K21.0 Active 303683824 Problem Primary insomnia F51.01 Active 8535849 Problem Chronic obstructive pulmonary disease, unspecified COPD type J44.9 Active 65344071 Problem Arteriosclerotic coronary artery disease I25.10 Active 36422554 Problem Weight gain R63.5 Active 2689245 Problem Rheumatoid arthritis M06.9 Active 82531830 Problem Panic attacks F41.0 Active 442038602 Problem Irritable bowel syndrome with diarrhea K58.0 Active 501671086 Problem Seasonal allergies J30.2 Active 634446022 Problem Mild episode of recurrent major depressive disorder F33.0 Active 406049415 Problem Neuropathy G62.9 Active 496173544 Problem Other insomnia G47.09 Active 230168029 Problem Mixed hyperlipidemia E78.2 Active 136389300 Problem Hyperinsulinemia E16.1 Active 69000856 Problem Other usp (current) drug therapy Z79.899 Active 784544128 Problem Cerebrovascular accident (CVA), unspecified mechanism I63.9 Active 712320126 Problem Chronic obstructive pulmonary disease, unspecified J44.9 Active 80423151062975934 Problem Obstructive sleep apnea G47.33 Active 89492923 ALLERGIES No Information ENCOUNTERS Encounter Location Date Diagnosis [facility] [facility] [id number] [place] [address] Jul, Via [facility] [employer] [address] [place], [place] [id number] Jun, History of acute respiratory failure Z87.09 ; Weight gain R63.5 and Tobacco abuse Z72.0 [place] [address] [address] Jun, [place] [address] [address] May, Primary insomnia F51.01 [facility] [id number] [place] [address] May, Mild episode of recurrent major depressive disorder F33.0 [place] [id number] [place] [address] May, [facility] [id number] [place] [address] May, Chronic obstructive pulmonary disease, unspecified COPD type J44.9 ; Primary insomnia F51.01 ; Fatigue, unspecified type R53.83 and Weight gain R63.5 [place] [id number] [place] [address] May, Thrush B37.0 [place] [id number] [place] [address] May, Mild episode of recurrent major depressive disorder F33.0 and Generalized anxiety disorder F41.1 [place] [id number] [place] [address] May, Thrush B37.0 [place] [id number] [place] [address] Apr, Cough R05 [place] [address] [place] [address] Mar, Mild episode of recurrent major depressive disorder F33.0 [facility] [id number] [place] [address] Mar, Mild episode of recurrent major depressive disorder F33.0 and Generalized anxiety disorder F41.1 [place] [id number] [place] [address] Mar, Seasonal allergies J30.2 [facility] [id number] [place] [address] Mar, Seasonal allergies J30.2 [place] [address] [address] February, Generalized anxiety disorder F41.1 [facility] [id number] [place] [address] February, Cough R05 and Seasonal allergies J30.2 [facility] [id number] [place] [address] February, Generalized anxiety disorder F41.1 and Mild episode of recurrent major depressive disorder F33.0 [place] [id number] [place] [address] February, Other usp (current) drug therapy Z79.899 ; Anxiety F41.9 ; Panic attacks F41.0 and Irritable bowel syndrome with diarrhea K58.0 [facility] [id number] [place] [address] February, [facility] [id number] [place] [address] Jan, Mixed hyperlipidemia E78.2 [facility] [id number] [place] [address] Jan, [facility] [id number] [place] [address] Jan, [facility] [address] [address] Jan, [facility] [id number] [place] [address] Jan, [facility] [id number] [place] [address] Dec, [facility] [id number] [place] [address] Dec, [facility] [id number] [place] [address] Dec, [facility] [id number] [place] [address] Nov, Dysthymic disorder F34.1 [facility] [id number] [place] [address] Oct, [facility] [id number] [place] [address] Oct, [facility] [id number] [place] [address] Oct, [facility] [id number] [place] [address] Oct, Diarrhea, unspecified type R19.7 and Dysuria R30.0 [facility] [id number] [place] [address] Oct, [facility] [id number] [place] [address] Sep, [facility] [id number] [place] [address] Sep, [facility] [id number] [place] [address] Sep, Anxiety F41.9 [facility] [id number] [place] [address] Sep, Cerebrovascular accident (CVA), unspecified mechanism I63.9 ; Mixed hyperlipidemia E78.2 ; Gastroesophageal reflux disease with esophagitis K21.0 and Anxiety F41.9 [place] [id number] [place] [address] Sep, [place] [id number] [place] [address] Aug, Chronic obstructive pulmonary disease, unspecified J44.9 ; Asthma J45.909 ; Nausea R11.0 ; Dysthymic disorder F34.1 ; Cerebrovascular accident (CVA), unspecified mechanism I63.9 and Rheumatoid arthritis M06.9 [place] [address] [address] Aug, Nausea R11.0 ; Encounter for immunization Z23 ; Sleep apnea in adult G47.30 ; Rheumatoid arthritis involving multiple sites, unspecified rheumatoid factor presence M06.9 ; Generalized anxiety disorder F41.1 ; Dysthymic disorder F34.1 and Asthma J45.909 [place] [id number] [place] [address] Jul, [place] [address] [address] May, ADHD (attention deficit hyperactivity disorder), combined type F90.2 ; Generalized anxiety disorder F41.1 and Persistent depressive disorder F34.1 [place] [id number] [place] [address] May, Cerebrovascular accident (CVA), unspecified mechanism I63.9 [place] [id number] [place] [address] Apr, Mixed hyperlipidemia E78.2 and Cerebrovascular accident (CVA), unspecified mechanism I63.9 [place] [id number] [place] [address] Apr, Generalized anxiety disorder F41.1 [place] [address] [place] [address] Apr, Bronchitis J40 and Tobacco use Z72.0 [place] [address] [address] Apr, Mixed hyperlipidemia E78.2 [place] [address] [address] Apr, Other usp (current) drug therapy Z79.899 [place] [address] [address] Apr, [place] [address] [address] Apr, Generalized anxiety disorder F41.1 [place] [address] [address] Apr, Obstructive sleep apnea G47.33 and Hyperinsulinemia E16.[address] [address] Apr, ADHD (attention deficit hyperactivity disorder), combined type F90.2 ; Generalized anxiety disorder F41.1 and Persistent depressive disorder F34.1 [place] [address] [address] Mar, [place] [address] [address] Mar, Generalized anxiety disorder F41.1 [place] [address] [address] Mar, Tarsal tunnel syndrome of both lower extremities G57.53 [place] [address] [address] February, [place] [address] [address] February, [place] [address] [address] February, Asthma J45.909 [place] [id number] [place] [address] February, Generalized anxiety disorder F41.1 [place] [id number] [place] [address] February, Hypoxemia R09.02 ; Hyperglycemia R73.9 ; Rheumatoid arthritis M06.9 and Generalized anxiety disorder F41.1 [place] [address] [address] February, [place] [id number] [place] [address] Jan, Chronic obstructive pulmonary disease, unspecified J44.9 [place] [address] [address] Jan, Chronic pain syndrome G89.4 [place] [address] [address] Jan, Hypoxemia R09.02 [place] [address] [address] Jan, [place] [id number] [place] [address] Jan, Chronic obstructive pulmonary disease, unspecified J44.9 ; Hypoxemia R09.02 ; Other insomnia G47.09 and Left anterior shoulder pain M25.512 [place] [id number] [place] [address] Jan, Numbness in feet R20.0 and Neuropathy G62.9 [place] [id number] [place] [address] Jan, [place] [id number] [place] [address] Dec, Acute pain of left shoulder M25.512 [place] [id number] [place] [address] Dec, Acute pain of left shoulder M25.512 [facility] [address] [address] Dec, Generalized anxiety disorder F41.1 [facility] [id number] [place] [address] Dec, Generalized anxiety disorder F41.1 [facility] [id number] [place] [address] Nov, ADHD (attention deficit hyperactivity disorder), combined type F90.2 ; Generalized anxiety disorder F41.1 and Persistent depressive disorder F34.1 [facility] [id number] [place] [address] Nov, Acute pain of left shoulder M25.512 [facility] [id number] [place] [address] Nov, ADHD (attention deficit hyperactivity disorder), combined type F90.2 ; Generalized anxiety disorder F41.1 and Persistent depressive disorder F34.1 [facility] [id number] [place] [address] Nov, Chronic pain syndrome G89.4 [facility] [id number] [place] [address] Nov, Chronic pain syndrome G89.4 [facility] [id number] [place] [address] 08 Nov, 2016 Acute pain of left shoulder M25.512 [facility] [id number] [place] [address] Nov, Generalized anxiety disorder F41.1 [facility] [id number] [place] [address] Nov, Acute pain of left shoulder M25.512 [facility] [address] [address] Nov, ADHD (attention deficit hyperactivity disorder), combined type F90.2 ; Generalized anxiety disorder F41.1 and Persistent depressive disorder F34.1 [place] [address] [place] [address] Nov, Acute pain of left shoulder M25.512 ; Generalized anxiety disorder F41.1 ; Chronic pain syndrome G89.4 ; Hyperinsulinemia E16.1 ; Pain of left foot M79.672 and Pain in right foot M79.671 [place] [address] [address] Oct, ADHD (attention deficit hyperactivity disorder), combined type F90.2 ; Generalized anxiety disorder F41.1 and Dysthymic disorder F34.1 [place] [id number] [place] [address] Sep, [place] [id number] [place] [address] Sep, [place] [id number] [place] [address] Sep, Routine gynecological examination V72.31 ; Cervical cancer screening Z12.4 ; Breast cancer screening Z12.39 ; Colon cancer screening Z12.11 ; Hypokalemia E87.6 ; Herpes simplex type 1 infection B00.9 and Abscess of right axilla L02.411 [place] [id number] [place] [address] Sep, [place] [id number] [place] [address] Sep, ADHD (attention deficit hyperactivity disorder), combined type F90.2 ; Generalized anxiety disorder F41.1 and Dysthymic disorder F34.1 [place] [id number] [place] [address] Aug, [place] [id number] [place] [address] Aug, [place] [address] [address] Aug, Generalized anxiety disorder F41.1 [place] [address] [address] Aug, ADHD (attention deficit hyperactivity disorder), combined type F90.2 ; Generalized anxiety disorder F41.1 and Dysthymic disorder F34.1 [place] [address] [address] Jul, Chronic pain syndrome G89.4 ; Hypertension I10 ; Hypokalemia E87.6 ; Asthma J45.909 and Nausea R11.0 [place] [address] [address] Jul, [place] [address] [address] Jul, Asthma J45.909 [place] [address] [address] Jul, ADHD (attention deficit hyperactivity disorder), combined type F90.2 ; Generalized anxiety disorder F41.1 and Dysthymic disorder F34.1 [place] [address] [address] Jul, [place] [id number] [place] [address] Jul, Hypertension I10 ; Arteriosclerotic coronary artery disease I25.10 ; Mixed hyperlipidemia E78.2 ; 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 and Hyperglycemia R73.9 [place] [id number] [place] [address] 16 Jun, 2016 Hypokalemia E87.6 and Hyperglycemia R73.9 [place] [address] [address] 14 Jun, 2016 [place] [address] [address] 13 Jun, 2016 Abnormal kidney function N28.9 [place] [address] [address] Jun, [place] [address] [address] Jun, ADHD (attention deficit hyperactivity disorder), combined type F90.2 ; Generalized anxiety disorder F41.1 and Dysthymic disorder F34.1 [place] [address] [address] Jun, Generalized anxiety disorder F41.1 and Dysthymic disorder F34.1 [place] [address] [address] Jun, Hypokalemia E87.6 [place] [address] [address] May, Hypokalemia E87.6 ; Vertigo R42 and Hyperinsulinemia E16.1 [place] [address] [address] May, [place] [address] [address] May, Abnormal kidney function N28.9 ; Hyperinsulinemia E16.1 and Nausea R11.0 [place] [address] [address] May, Hypokalemia E87.6 ; Nausea R11.0 ; Epigastric pain R10.13 ; Dehydration E86.0 ; Diaphoresis R61 and Right arm pain M79.601 [place] [address] [address] May, [place] [address] [address] May, Hypokalemia E87.6 [place] [address] [address] May, Hypokalemia E87.6 [place] [id number] [place] [address] Apr, [place] [id number] [place] [address] Apr, ADHD (attention deficit hyperactivity disorder), combined type F90.2 ; Generalized anxiety disorder F41.1 and Dysthymic disorder F34.1 [place] [address] [address] Apr, Right arm pain M79.601 and Hyperinsulinemia E16.1 [place] [id number] [place] [address] Mar, [place] [id number] [place] [address] Mar, [place] [id number] [place] [address] Mar, Hyperinsulinemia E16.1 ; Hyperlipidemia, unspecified hyperlipidemia type E78.5 ; Central venous catheter in place Z78.9 ; Generalized anxiety disorder F41.1 and Urinary tract infection, site not specified N39.0 [place] [id number] [place] [address] Mar, ADHD (attention deficit hyperactivity disorder), combined type F90.2 ; Generalized anxiety disorder F41.1 and Dysthymic disorder F34.1 [place] [address] [place] [address] February, ADHD (attention deficit hyperactivity disorder), combined type F90.2 ; Generalized anxiety disorder F41.1 and Dysthymic disorder F34.1 [place] [id number] [place] [address] February, [place] [id number] [place] [address] February, [place] [id number] [place] [address] February, Hypertension I10 and Weight gain R63.5 [facility] [id number] [place] [address] February, Major depressive disorder, recurrent, moderate F33.1 and Generalized anxiety disorder F41.1 [facility] [id number] [place] [address] February, ADHD (attention deficit hyperactivity disorder), combined type F90.2 ; Generalized anxiety disorder F41.1 and Dysthymic disorder F34.1 [place] [id number] [place] [address] February, [place] [id number] [place] [address] February, Asthma J45.909 ; Weight gain R63.5 ; Hypertension I10 ; Rheumatoid arthritis M06.9 and Chronic pain syndrome G89.4 [place] [id number] [place] [address] Jan, ADHD (attention deficit hyperactivity disorder), combined type F90.2 ; Generalized anxiety disorder F41.1 and Dysthymic disorder F34.1 [place] [id number] [place] [address] Dec, ADHD (attention deficit hyperactivity disorder), combined type F90.2 ; Generalized anxiety disorder F41.1 and Dysthymic disorder F34.1 [place] [id number] [place] [address] Dec, [place] [id number] [place] [address] Nov, [place] [id number] [place] [address] Nov, [place] [id number] [place] [address] Nov, [place] [address] [place] [address] Nov, [facility] [address] [address] Oct, [facility] [address], [place] [address] Oct, [facility] [address], [place] [address] Oct, [facility] [address] [address] Sep, [facility] [id number] [place] [address] Sep, [facility] [address] [address] Sep, Agoraphobia with panic disorder F40.01 ; Attention-deficit hyperactivity disorder, combined type F90.2 and Dysthymic disorder F34.1 [facility] [address] [address] Aug, [facility] [address] [address] Aug, [facility] [address] [address] Aug, [facility] [address] [address] Aug, Dysthymic disorder F34.1 ; Generalized anxiety disorder F41.1 and ADHD (attention deficit hyperactivity disorder), combined type F90.2 [facility] [address] [address] Aug, ADHD (attention deficit hyperactivity disorder), combined type F90.2 ; Generalized anxiety disorder F41.1 and Dysthymic disorder F34.1 [facility] [id number] [address] Jul, Urinary tract infection, site not specified N39.0 ; Hypotension, unspecified I95.9 and Breast cancer screening Z12.39 [facility] [id number] [place] [phone] Jul, [facility] [id number] [place] [phone] Jul, [facility] [id number] [place] [id number] Jul, Urinary tract infection, site not specified N39.0 ; Nausea R11.0 ; Gastroenteritis K52.9 ; Renal failure N19 and Other hypotension I95.89 [facility] [id number] [place] [phone] Jul, [facility] [id number] [place] [phone] Jul, [facility] [id number] [place] [phone] Jul, [facility] [id number] [place] [phone] Jun, [facility] [id number] [place] [phone] Jun, Major depression in partial remission 296.25 ; Generalized anxiety disorder 300.02 and ADHD, predominantly inattentive type 314.01 [facility] [id number] [place] [phone] May, [facility] [id number] [place] [id number] Apr, Major depressive disorder, recurrent episode, severe, without mention of psychotic behavior 296.33 ; Agoraphobia with panic disorder 300.21 and Generalized anxiety disorder 300.02 [facility] [id number] [address] Apr, ADHD (attention deficit hyperactivity disorder), combined type 314.01 ; Generalized anxiety disorder 300.02 and Dysthymic disorder 300.4 [facility] [id number] [place] [address] Apr, CAD (coronary artery disease) 414.00 ; HTN (hypertension) 401.9 and Tobacco use 305.1 [facility] [id number] [place] [address] Apr, [facility] [address] [address] Mar, ADHD (attention deficit hyperactivity disorder), combined type 314.01 ; Generalized anxiety disorder 300.02 ; Dysthymic disorder 300.4 ; No condition on [place] II V71.09 ; Rheumatoid arthritis 714.0 ; Incontinence 788.30 ; Irritable bowel syndrome 564.1 ; Osteoporosis 733.00 and Chronic pain 338.29 [place] [id number] [place] [address] Mar, Agoraphobia with panic disorder 300.21 and Major depressive disorder, recurrent episode, moderate 296.32 [facility] [id number] [place] [address] Mar, [facility] [id number] [place] [address] February, [facility] [id number] [place] [address] February, Agoraphobia with panic disorder 300.21 and Major depressive disorder, recurrent episode, moderate 296.32 [facility] [id number] [place] [address] February, [facility] [id number] [place] [address] Jan, [facility] [id number] [place] [address] Jan, [facility] [id number] [place] [address] Dec, [facility] [id number] [address] Dec, [facility] [place] [facility] [address] [id number] [place] [address] Dec, [facility] [place] [facility] [address] [id number] [place] [address] Dec, [facility] [place] [facility] [address] [id number] [place] [address] Dec, [facility] [place] [facility] [address] [id number] [place] [address] Dec, [facility] [place] [facility] [address] [id number] [place] [address] Nov, [facility] [place] [facility] [address] [facility] [id number] [place] [address] Nov, [facility] [place] [facility] [address] [id number] [place] [address] Nov, [facility] [place] [facility] [address] [id number] [place] [address] Nov, [facility] [place] [facility] [address] [facility] [id number] [place] [address] Nov, [facility] [place] [facility] [address] [facility] [id number] [place] [address] Nov, [facility] [place] [facility] [address] [id number] [place] [address] Nov, [facility] [place] [facility] [address] [id number] [place] [address] Nov, [facility] [place] [facility] [address] [id number] [place] [address] Oct, [facility] [place] [facility] [address] [id number] [place] [address] Oct, [facility] [place] [facility] [address] [facility] [id number] [place] [address] Oct, [facility] [place] [facility] [address] [id number] [place] [address] Oct, [facility] [place] [facility] [address] [id number] [place] [address] Oct, [facility] [place] [facility] [address] [id number] [place] [address] Oct, [facility] [place] [facility] [address] [id number] [place] [address] Sep, [facility] [place] [facility] [address] [id number] [place] [address] Sep, [facility] [place] [facility] [address] [id number] [place] [address] Sep, [facility] [place] [facility] [address] [id number] [place] [address] Sep, [facility] [place] [facility] [address] [id number] [place] [address] Sep, [facility] [place] [facility] [address] [id number] [place] [address] Sep, [facility] [place] [facility] [address] [id number] [place] [address] Sep, [facility] [place] [facility] [address] [id number] [place] [address] Aug, [facility] [place] [facility] [address] [id number] [place] [address] Aug, [facility] [place] [facility] [address] [id number] [place] [address] Aug, [facility] [place] [facility] [address] [id number] [place] [address] Aug, [facility] [place] [facility] [address] [id number] [place] [address] Aug, [facility] [place] [facility] [address] [id number] [place] [address] Aug, [facility] [place] [facility] [address] [id number] [place] [address] Jul, [facility] [place] [facility] [address] [id number] [place] [address] Jul, [facility] [place] [facility] [address] [id number] [place] [address] Jul, [facility] [place] [facility] [address] [id number] [place] [address] Jul, [facility] [place] [facility] [address] [id number] [place] [address] Jul, [facility] [place] [facility] [address] [id number] [place] [address] Jul, [facility] [place] [facility] [address] [id number] [place] [address] Jun, [facility] [place] [facility] [address] [id number] [place] [address] Jun, [facility] [place] [facility] [address] [id number] [place] [address] May, [facility] [place] [facility] [address] [id number] [place] [address] May, [facility] [place] [facility] [address] [id number] [place] [address] Apr, [facility] [place] [facility] [address] [id number] [place] [address] Apr, [facility] [place] [facility] [address] [id number] [place] [address] Apr, [facility] [place] [facility] [address] [id number] [place] [address] Apr, [facility] [place] [facility] [address] [id number] [place] [address] Mar, [facility] [place] [facility] [address] [id number] [place] [address] Mar, [facility] [place] [facility] [address] [id number] [place] [address] Mar, [facility] [place] [facility] [address] [id number] [place] [address] Mar, [facility] [place] [facility] [address] [id number] [place] [address] February, [facility] [place] [facility] [address] [id number] [place] [address] February, [facility] [place] [facility] [address] [id number] [place] [address] February, [facility] [place] [facility] [address] [id number] [place] [address] February, [facility] [place] [facility] [address] [id number] [place] [address] February, [facility] [place] [facility] [address] [id number] [place] [address] February, [facility] [place] [facility] [address] [id number] [place] [address] Jan, [facility] [place] [facility] [address] [id number] [place] [address] Jan, [facility] [place] [facility] [address] [id number] [place] [address] Dec, [facility] [place] [facility] [address] [id number] [place] [address] Dec, [facility] [place] [facility] [address] [id number] [place] [address] Nov, [facility] [place] [facility] [address] [id number] [place] [address] Nov, [facility] [place] [facility] [address] [id number] [place] [address] Oct, [facility] [address] [id number] [place] [address] Oct, [facility] [address] [id number] [place] [address] Oct, [facility] [address] [id number] [place] [address] Oct, [facility] [place] [facility] [address] [id number] [place] [address] Sep, [facility] [address] [id number] [place] [address] Sep, [facility] [address] [id number] [place] [address] Sep, [facility] [address] [id number] [place] [address] Sep, [facility] [address] [id number] [place] [address] Sep, [facility] [address] [id number] [place] [address] Sep, [facility] [address] [id number] [place] [address] Sep, [facility] [address] [id number] [place] [address] Sep, [facility] [place] [facility] [address] [id number] [place] [address] Aug, [facility] [place] [facility] [address] [id number] [place] [address] Aug, [facility] [place] [facility] [address] [id number] [place] [address] Aug, [facility] [place] [facility] [address] [id number] [address] Aug, [facility] [place] [facility] [address] [id number] [place] [address] Aug, [facility] [place] [facility] [address] [id number] [place] [address] Aug, [facility] [place] [facility] [address] [id number] [place] [address] Aug, [facility] [place] [facility] [address] [id number] [place] [address] Aug, [facility] [place] [facility] [address] [id number] [place] [address] Aug, [facility] [place] [facility] [address] [id number] [place] [address] Jul, [facility] [place] [facility] [address] [id number] [place] [address] Jun, [facility] [place] [facility] [address] [id number] [place] [address] May, [facility] [place] [facility] [address] [id number] [place] [address] May, [facility] [place] [facility] [address] [id number] [place] [address] May, [facility] [place] [facility] [address] [id number] [place] [address] Apr, [facility] [place] [facility] [address] [id number] [place] [address] Mar, [facility] [place] [facility] [address] [id number] [place] [address] February, [facility] [place] [facility] [address] [id number] [place] [address] Oct, [facility] [place] [facility] [address] [id number] [place] [address] Oct, [facility] [place] [facility] [address] [id number], [place] [address] Oct, [facility] [place] [facility] [address] [id number] [place] [address] Oct, [facility] [place] [facility] [address] [id number] [place] [address] Oct, [facility] [place] [facility] [address] [id number] [place] [address] Oct, [facility] [place] [facility] [address] [id number] [place] [address] Sep, [facility] [place] [facility] [address] [id number] [place] [address] Sep, [facility] [place] [facility] [address] [id number] [place] [address] Aug, [facility] [place] [facility] [address] [id number] [place] [address] Aug, [facility] [place] [facility] [address] [id number] [place] [address] Jul, [facility] [place] [facility] [address] [id number] [place] [address] Jul, [facility] [place] [facility] [address] [id number] [place] [address] Jul, [facility] [place] [facility] [address] [id number] [address] Jul, [facility] [place] [facility] [address] [id number], [place] [address] Jul, [facility] [place] [facility] [address] [id number] [place] [address] Jul, [facility] [place] [facility] [address] [id number] [place] [address] Jul, [facility] [place] [facility] [address] [id number] [place] [address] Jul, [facility] [place] [facility] [address] [id number] [place] [address] 16 Jun, [address] [facility] [address] [id number] [place] [address] Jun, [facility] [place] [facility] [address] [id number] [place] [address] May, [facility] [address] [id number] [place] [address] Apr, [facility] [address] [id number] [place] [address] Mar, [facility] [address] [id number] [place] [address] Mar, [facility] [address] [id number] [place] [address] Mar, [facility] [address] [id number] [place] [address] Mar, [facility] [address] [id number] [place] [address] Jan, [facility] [address] [id number] [place] [address] Nov, [facility] [address] [id number] [place] [address] Nov, [facility] [address] [id number] [place] [address] Nov, [facility] [address] [id number] [place] [address] Oct, [facility] [place] [facility] [address] [id number] [place] [address] Sep, [facility] [place] [facility] [address] [id number] [place] [address] Sep, [facility] [place] [facility] [address] [id number] [place] [address] Aug, [facility] [id number] [address] Aug, [facility] [id number] [address] Aug, [facility] [id number] [address] Aug, [facility] [id number] [address] Jul, [facility] [id number] [address] May, [facility] [id number] [place] [address] Jan, [facility] [id number] [place] [address] Nov, [facility] [id number] [address] Apr, [facility] [id number] [address] Dec, [facility] [address] [address] Nov, IMMUNIZATIONS No Known Immunizations SOCIAL HISTORY Never Assessed REASON FOR VISIT Controlled Med Refill PLAN OF CARE VITAL SIGNS MEDICATIONS Medication Instructions Dosage Frequency Start Date End Date Duration Status Zolpidem Tartrate 5 MG Orally Once a day 1 tablet at bedtime 24h May, 28 days Active RESULTS No Results PROCEDURES No Known procedures INSTRUCTIONS MEDICATIONS ADMINISTERED No Known Medications MEDICAL (GENERAL) HISTORY Type Description Date Medical History Cardiovascular bdssykzx-OJI-Scdpqimy, non-obstructive per (01/2011) Dr. Mendoza Medical History Stress test 03/07/13-Dr. Kelly Dietrich normal Medical History Hypertension Medical History Asthma Medical History Gastrointestinal Disorder--IBS, GERD, Hx of fatty liver Medical History Hernia 1979 Medical History Cervical dysplasia 02/16-Pap LGSIL/[facility]-mild dysplasia Medical History Hyperlipidemia Medical History Rheumatoid [...]
--- OUTSIDE RECORDS SUMMARY | 2019-05-22 07:53 | XMS REPORT ---
Author Author DANIEL CARLTON Organization [facility] Address [address] [place] [address] Care Team Providers Care Assistant Professor Of Biology Name Role Phone WILLIAMINDIA CARLTON Unavailable PROBLEMS Type Condition ICD9-CM Code TNQ07-OF Code Onset Dates Condition Status SNOMED Code Problem ADHD (attention deficit hyperactivity disorder), combined type F90.2 Active 78540635 Problem Generalized anxiety disorder F41.1 Active 49827617 Problem Asthma J45.909 Active 189610043 Problem Dysthymic disorder F34.1 Active 94910480 Problem Hypertension I10 Active 26380116 Problem Sleep apnea in adult G47.30 Active 37571915 Problem Chronic pain syndrome G89.4 Active 525518826 Problem Rheumatoid arthritis involving multiple sites, unspecified rheumatoid factor presence M06.9 Active 949911613 Problem Anxiety F41.9 Active 57007049 Problem Gastroesophageal reflux disease with esophagitis K21.0 Active 725034146 Problem Primary insomnia F51.01 Active 6091044 Problem Chronic obstructive pulmonary disease, unspecified COPD type J44.9 Active 33753304 Problem Arteriosclerotic coronary artery disease I25.10 Active 98915942 Problem Weight gain R63.5 Active 9973789 Problem Rheumatoid arthritis M06.9 Active 80106177 Problem Panic attacks F41.0 Active 129552484 Problem Irritable bowel syndrome with diarrhea K58.0 Active 891045921 Problem Seasonal allergies J30.2 Active 050823869 Problem Mild episode of recurrent major depressive disorder F33.0 Active 229634905 Problem Neuropathy G62.9 Active 068103494 Problem Other insomnia G47.09 Active 755274229 Problem Mixed hyperlipidemia E78.2 Active 027798447 Problem Hyperinsulinemia E16.1 Active 05161035 Problem Other senior living (current) drug therapy Z79.899 Active 880386695 Problem Cerebrovascular accident (CVA), unspecified mechanism I63.9 Active 816605036 Problem Chronic obstructive pulmonary disease, unspecified J44.9 Active [id number] Problem Obstructive sleep apnea G47.33 Active 19049499 ALLERGIES No Information ENCOUNTERS Encounter Location Date Diagnosis [facility] [id number] [place] [address] Jul, [facility] [id number] [place] [address] May, Primary insomnia F51.01 [facility] [id number] [place] [address] May, Mild episode of recurrent major depressive disorder F33.0 [facility] [id number] [place] [address] May, [facility] [id number] [place] [address] May, Chronic obstructive pulmonary disease, unspecified COPD type J44.9 ; Primary insomnia F51.01 ; Fatigue, unspecified type R53.83 and Weight gain R63.5 [facility] [id number] [place] [address] May, Thrush B37.0 [facility] [id number] [place] [address] May, Mild episode of recurrent major depressive disorder F33.0 and Generalized anxiety disorder F41.1 [facility] [id number] [place] [address] May, Thrush B37.0 [facility] [id number] [place] [address] Apr, Cough R05 [facility] [id number] [place] [address] Mar, Mild episode of recurrent major depressive disorder F33.0 [facility] [id number] [place] [address] Mar, Mild episode of recurrent major depressive disorder F33.0 and Generalized anxiety disorder F41.1 [facility] [id number] [place] [address] Mar, Seasonal allergies J30.2 [facility] [id number] [place] [address] Mar, Seasonal allergies J30.2 [facility] [id number] [place] [address] February, Generalized anxiety disorder F41.1 [facility] [id number] [place] [address] February, Cough R05 and Seasonal allergies J30.2 [facility] [id number] [place] [address] February, Generalized anxiety disorder F41.1 and Mild episode of recurrent major depressive disorder F33.0 [facility] [id number] [place] [address] February, Other senior living (current) drug therapy Z79.899 ; Anxiety F41.9 ; Panic attacks F41.0 and Irritable bowel syndrome with diarrhea K58.0 [facility] [id number] [place] [address] February, [facility] [id number] [place] [address] Jan, Mixed hyperlipidemia E78.2 [facility] [id number] [place] [address] Jan, [facility] [id number] [place] [address] Jan, [facility] [id number] [place] [address] Jan, [facility] [id number] [place] [address] Jan, [facility] [id number] [place] [address] Dec, [facility] [id number] [place] [address] Dec, [facility] [id number] [place] [address] Dec, [facility] [id number] [place] [address] Nov, Dysthymic disorder F34.1 [facility] [id number] [place] [address] Oct, [facility] [id number] [place] [address] Oct, [facility] [id number] [place] [address] Oct, [facility] [id number] [place] [address] Oct, Diarrhea, unspecified type R19.7 and Dysuria R30.0 [facility] [id number] [place] [address] Oct, [facility] [id number] [place] [address] Sep, [facility] [id number] [place] [address] Sep, [facility] [id number] [place] [address] Sep, Anxiety F41.9 [facility] [id number] [place] [address] Sep, Cerebrovascular accident (CVA), unspecified mechanism I63.9 ; Mixed hyperlipidemia E78.2 ; Gastroesophageal reflux disease with esophagitis K21.0 and Anxiety F41.9 [facility] [id number] [place] [address] Sep, [facility] [id number] [place] [address] Aug, Chronic obstructive pulmonary disease, unspecified J44.9 ; Asthma J45.909 ; Nausea R11.0 ; Dysthymic disorder F34.1 ; Cerebrovascular accident (CVA), unspecified mechanism I63.9 and Rheumatoid arthritis M06.9 [facility] [address] [address] Aug, Nausea R11.0 ; Encounter for immunization Z23 ; Sleep apnea in adult G47.30 ; Rheumatoid arthritis involving multiple sites, unspecified rheumatoid factor presence M06.9 ; Generalized anxiety disorder F41.1 ; Dysthymic disorder F34.1 and Asthma J45.909 [facility] [address] [address] Jul, [facility] [address] [address] May, ADHD (attention deficit hyperactivity disorder), combined type F90.2 ; Generalized anxiety disorder F41.1 and Persistent depressive disorder F34.1 [facility] [address] [address] May, Cerebrovascular accident (CVA), unspecified mechanism I63.9 [facility] [address] [address] Apr, Mixed hyperlipidemia E78.2 and Cerebrovascular accident (CVA), unspecified mechanism I63.9 [facility] [address] [address] Apr, Generalized anxiety disorder F41.1 [facility] [address] [address] Apr, Bronchitis J40 and Tobacco use Z72.0 [facility] [address] [address] Apr, Mixed hyperlipidemia E78.2 [facility] [address] [address] Apr, 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 [facility] [id number] [place] [address] Apr, [facility] [id number] [place] [address] Apr, Generalized anxiety disorder F41.1 [facility] [id number] [place] [address] Apr, Obstructive sleep apnea G47.33 and Hyperinsulinemia E16.1 [facility] [id number] [place] [address] Apr, ADHD (attention deficit hyperactivity disorder), combined type F90.2 ; Generalized anxiety disorder F41.1 and Persistent depressive disorder F34.1 [facility] [id number] [place] [address] Mar, [facility] [id number] [place] [address] Mar, Generalized anxiety disorder F41.1 [facility] [id number] [place] [address] Mar, Tarsal tunnel syndrome of both lower extremities G57.53 [facility] [id number] [place] [address] February, [facility] [id number] [place] [address] February, [facility] [id number] [place] [address] February, Asthma J45.909 [facility] [id number] [place] [address] February, Generalized anxiety disorder F41.1 [facility] [id number] [place] [address] February, Hypoxemia R09.02 ; Hyperglycemia R73.9 ; Rheumatoid arthritis M06.9 and Generalized anxiety disorder F41.1 [facility] [id number] [place] [address] February, [facility] [id number] [place] [address] Jan, Chronic obstructive pulmonary disease, unspecified J44.9 [facility] [address] [address] Jan, Chronic pain syndrome G89.4 [facility] [id number] [place] [address] Jan, Hypoxemia R09.02 [facility] [address] [address] Jan, [facility] [id number] [place] [address] Jan, Chronic obstructive pulmonary disease, unspecified J44.9 ; Hypoxemia R09.02 ; Other insomnia G47.09 and Left anterior shoulder pain M25.512 [facility] [id number] [place] [address] Jan, Numbness in feet R20.0 and Neuropathy G62.9 [facility] [id number] [place] [address] Jan, [facility] [address] [address] Dec, Acute pain of left shoulder M25.512 [facility] [id number] [place] [address] Dec, Acute pain of left shoulder M25.512 [facility] [id number] [place] [address] Dec, Generalized anxiety disorder F41.1 [facility] [id number] [place] [address] Dec, Generalized anxiety disorder F41.1 [facility] [id number] [place] [address] Nov, ADHD (attention deficit hyperactivity disorder), combined type F90.2 ; Generalized anxiety disorder F41.1 and Persistent depressive disorder F34.1 [facility] [id number] [place] [address] Nov, Acute pain of left shoulder M25.512 [facility] [id number] [place] [address] Nov, ADHD (attention deficit hyperactivity disorder), combined type F90.2 ; Generalized anxiety disorder F41.1 and Persistent depressive disorder F34.1 [facility] [id number] [place] [address] 17 Nov, 2016 Chronic pain syndrome G89.4 [facility] [id number] [place] [address] Nov, Chronic pain syndrome G89.4 [facility] [id number] [place] [address] 08 Nov, 2016 Acute pain of left shoulder M25.512 [facility] [id number] [place] [address] 07 Nov, 2016 Generalized anxiety disorder F41.1 [facility] [id number] [place] [address] Nov, Acute pain of left shoulder M25.512 [facility] [id number] [place] [address] Nov, ADHD (attention deficit hyperactivity disorder), combined type F90.2 ; Generalized anxiety disorder F41.1 and Persistent depressive disorder F34.1 [facility] [id number] [place] [address] Nov, Acute pain of left shoulder M25.512 ; Generalized anxiety disorder F41.1 ; Chronic pain syndrome G89.4 ; Hyperinsulinemia E16.1 ; Pain of left foot M79.672 and Pain in right foot M79.671 [facility] [id number] [place] [address] Oct, ADHD (attention deficit hyperactivity disorder), combined type F90.2 ; Generalized anxiety disorder F41.1 and Dysthymic disorder F34.1 [facility] [id number] [place] [address] Sep, [facility] [id number] [place] [address] Sep, [address] [address] Sep, Routine gynecological examination V72.31 ; Cervical cancer screening Z12.4 ; Breast cancer screening Z12.39 ; Colon cancer screening Z12.11 ; Hypokalemia E87.6 ; Herpes simplex type 1 infection B00.9 and Abscess of right axilla L02.411 [facility] [id number] [place] [address] Sep, [facility] [id number] [place] [address] Sep, ADHD (attention deficit hyperactivity disorder), combined type F90.2 ; Generalized anxiety disorder F41.1 and Dysthymic disorder F34.1 [facility] [id number] [place] [address] Aug, [facility] [id number] [place] [address] Aug, [facility] [id number] [place] [address] Aug, Generalized anxiety disorder F41.1 [facility] [id number] [place] [address] Aug, ADHD (attention deficit hyperactivity disorder), combined type F90.2 ; Generalized anxiety disorder F41.1 and Dysthymic disorder F34.1 [facility] [id number] [place] [address] Jul, Chronic pain syndrome G89.4 ; Hypertension I10 ; Hypokalemia E87.6 ; Asthma J45.909 and Nausea R11.0 [facility] [id number] [place] [address] Jul, [facility] [address] [address] Jul, Asthma J45.909 [facility] [id number] [place] [address] Jul, ADHD (attention deficit hyperactivity disorder), combined type F90.2 ; Generalized anxiety disorder F41.1 and Dysthymic disorder F34.1 [facility] [id number] [place] [address] Jul, [facility] [id number] [place] [address] Jul, Hypertension I10 ; Arteriosclerotic coronary artery disease I25.10 ; Mixed hyperlipidemia E78.2 ; 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 and Hyperglycemia R73.9 [facility] [id number] [place] [address] 16 Jun, 2016 Hypokalemia E87.6 and Hyperglycemia R73.9 [facility] [id number] [place] [address] 14 Jun, 2016 [facility] [id number] [place] [address] 13 Jun, 2016 Abnormal kidney function N28.9 [facility] [address] [address] 09 Jun, 2016 [facility] [id number] [place] [address] 06 Jun, 2016 ADHD (attention deficit hyperactivity disorder), combined type F90.2 ; Generalized anxiety disorder F41.1 and Dysthymic disorder F34.1 [facility] [address] [address] Jun, Generalized anxiety disorder F41.1 and Dysthymic disorder F34.1 [facility] [address] [address] Jun, Hypokalemia E87.6 [facility] [address] [address] May, Hypokalemia E87.6 ; Vertigo R42 and Hyperinsulinemia E16.1 [facility] [address] [address] May, [facility] [address] [address] May, Abnormal kidney function N28.9 ; Hyperinsulinemia E16.1 and Nausea R11.0 [facility] [address] [address] May, Hypokalemia E87.6 ; Nausea R11.0 ; Epigastric pain R10.13 ; Dehydration E86.0 ; Diaphoresis R61 and Right arm pain M79.601 [facility] [address] [address] May, [facility] [address] [address] May, Hypokalemia E87.6 [facility] [address] [address] May, Hypokalemia E87.6 [facility] [address] [address] Apr, [facility] [address] [address] Apr, ADHD (attention deficit hyperactivity disorder), combined type F90.2 ; Generalized anxiety disorder F41.1 and Dysthymic disorder F34.1 [facility] [id number] [place] [address] Apr, Right arm pain M79.601 and Hyperinsulinemia E16.1 [facility] [id number] [place] [address] Mar, [facility] [id number] [place] [address] Mar, [facility] [id number] [place] [address] Mar, Hyperinsulinemia E16.1 ; Hyperlipidemia, unspecified hyperlipidemia type E78.5 ; Central venous catheter in place Z78.9 ; Generalized anxiety disorder F41.1 and Urinary tract infection, site not specified N39.0 [facility] [id number] [place] [address] Mar, ADHD (attention deficit hyperactivity disorder), combined type F90.2 ; Generalized anxiety disorder F41.1 and Dysthymic disorder F34.1 [facility] [id number] [place] [address] February, ADHD (attention deficit hyperactivity disorder), combined type F90.2 ; Generalized anxiety disorder F41.1 and Dysthymic disorder F34.1 [facility] [address] [address] February, [facility] [id number] [place] [address] February, [facility] [id number] [place] [address] February, Hypertension I10 and Weight gain R63.5 [facility] [id number] [place] [address] February, Major depressive disorder, recurrent, moderate F33.1 and Generalized anxiety disorder F41.1 [facility] [id number] [address] February, ADHD (attention deficit hyperactivity disorder), combined type F90.2 ; Generalized anxiety disorder F41.1 and Dysthymic disorder F34.1 [facility] [id number] [place] [address] February, [facility] [id number] [place] [address] February, Asthma J45.909 ; Weight gain R63.5 ; Hypertension I10 ; Rheumatoid arthritis M06.9 and Chronic pain syndrome G89.4 [facility] [id number] [place] [address] Jan, ADHD (attention deficit hyperactivity disorder), combined type F90.2 ; Generalized anxiety disorder F41.1 and Dysthymic disorder F34.1 [facility] [id number] [place] [address] Dec, ADHD (attention deficit hyperactivity disorder), combined type F90.2 ; Generalized anxiety disorder F41.1 and Dysthymic disorder F34.1 [facility] [id number] [place] [address] Dec, [facility] [id number] [place] [address] Nov, [facility] [id number] [place] [address] Nov, [facility] [id number] [place] [address] Nov, [facility] [id number] [place] [address] Nov, [facility] [id number] [place] [address] Oct, [facility] [id number] [place] [address] Oct, [facility] [id number] [place] [address] Oct, [facility] [id number] [place] [address] Sep, [facility] [id number] [place] [address] Sep, [facility] [id number] [place] [address] Sep, Agoraphobia with panic disorder F40.01 ; Attention-deficit hyperactivity disorder, combined type F90.2 and Dysthymic disorder F34.1 [facility] [address] [place] [address] Aug, [facility] [address] [place] [address] Aug, [facility] [id number] [place] [address] Aug, [facility] [address] [place] [address] Aug, Dysthymic disorder F34.1 ; Generalized anxiety disorder F41.1 and ADHD (attention deficit hyperactivity disorder), combined type F90.2 [facility] [address] [address] Aug, ADHD (attention deficit hyperactivity disorder), combined type F90.2 ; Generalized anxiety disorder F41.1 and Dysthymic disorder F34.1 [facility] [address] [place] [address] Jul, Urinary tract infection, site not specified N39.0 ; Hypotension, unspecified I95.9 and Breast cancer screening Z12.39 [facility] [address] [place] [address] Jul, [facility] [id number] [place] [address] Jul, [facility] [id number] [place] [address] Jul, Urinary tract infection, site not specified N39.0 ; Nausea R11.0 ; Gastroenteritis K52.9 ; Renal failure N19 and Other hypotension I95.89 [facility] [id number] [place] [address] Jul, [facility] [id number] [place] [address] Jul, [facility] [id number] [place] [address] Jul, [facility] [id number] [place] [address] Jun, [facility] [id number] [place] [address] Jun, Major depression in partial remission 296.25 ; Generalized anxiety disorder 300.02 and ADHD, predominantly inattentive type 314.01 [facility] [id number] [place] [address] May, [facility] [id number] [place] [address] Apr, Major depressive disorder, recurrent episode, severe, without mention of psychotic behavior 296.33 ; Agoraphobia with panic disorder 300.21 and Generalized anxiety disorder 300.02 [facility] [id number] [place] [place] [address] Apr, ADHD (attention deficit hyperactivity disorder), combined type 314.01 ; Generalized anxiety disorder 300.02 and Dysthymic disorder 300.4 [place] [id number] [place] [address] Apr, CAD (coronary artery disease) 414.00 ; HTN (hypertension) 401.9 and Tobacco use 305.1 [place] [id number] [place] [address] Apr, [facility] [id number] [place] [address] Mar, ADHD (attention deficit hyperactivity disorder), combined type 314.01 ; Generalized anxiety disorder 300.02 ; Dysthymic disorder 300.4 ; No condition on [place] II V71.09 ; Rheumatoid arthritis 714.0 ; Incontinence 788.30 ; Irritable bowel syndrome 564.1 ; Osteoporosis 733.00 and Chronic pain 338.29 [facility] [id number] [place] [address] Mar, Agoraphobia with panic disorder 300.21 and Major depressive disorder, recurrent episode, moderate 296.32 [facility] [id number] [place] [address] Mar, [facility] [id number] [place] [address] February, [facility] [id number] [place] [address] February, Agoraphobia with panic disorder 300.21 and Major depressive disorder, recurrent episode, moderate 296.32 [facility] [id number] [place] [address] February, [facility] [id number] [place] [address] Jan, [facility] [id number] [place] [address] Jan, [facility] [id number] [place] [address] Dec, [facility] [id number] [place] [address] Dec, [facility] [id number] [place] [address] Dec, [facility] [id number] [place] [address] Dec, [facility] [place] [facility] [address] [id number] [place] [address] Dec, [facility] [place] [facility] [address] [id number] [place] [address] Dec, [facility] [place] [facility] [address] [id number] [place] [address] Nov, [facility] [place] [facility] [address] [id number] [place] [address] Nov, [facility] [place] [facility] [address] [id number] [place] [address] Nov, [facility] [place] [facility] [address] [id number] [place] [address] Nov, [facility] [place] [facility] [address] [facility] [id number] [place] [address] Nov, [facility] [place] [facility] [address] [id number] [place] [address] Nov, [facility] [place] [facility] [address] [id number] [place] [address] Nov, [facility] [place] [facility] [address] [facility] [id number] [place] [address] Nov, [facility] [place] [facility] [address] [facility] [id number] [place] [address] Oct, [facility] [place] [facility] [address] [id number] [place] [address] Oct, [facility] [place] [facility] [address] [id number] [place] [address] Oct, [facility] [place] [facility] [address] [facility] [id number] [place] [address] Oct, [facility] [place] [facility] [address] [facility] [id number] [place] [address] Oct, [facility] [place] [facility] [address] [id number] [place] [address] 05 Oct, 2014 [facility] [place] [facility] [address] [id number] [place] [address] Sep, [facility] [place] [facility] [address] [id number] [place] [address] Sep, [facility] [place] [facility] [address] [id number] [place] [address] Sep, [facility] [place] [facility] [address] [id number] [place] [address] Sep, [facility] [place] [facility] [address] [id number] [place] [address] Sep, [facility] [place] [facility] [address] [id number] [place] [address] Sep, [facility] [place] [facility] [address] [id number] [place] [address] Sep, [facility] [place] [facility] [address] [id number] [place] [address] Aug, [facility] [place] [facility] [address] [id number] [place] [address] Aug, [facility] [place] [facility] [address] [facility] [id number] [place] [address] Aug, [facility] [place] [facility] [address] [id number] [place] [address] Aug, [facility] [place] [facility] [address] [id number] [place] [address] Aug, [facility] [place] [facility] [address] [id number] [place] [address] Aug, [facility] [place] [facility] [address] [id number] [place] [address] Jul, [facility] [place] [facility] [address] [id number] [place] [address] Jul, [facility] [place] [facility] [address] [id number] [place] [address] Jul, [facility] [place] [facility] [address] [id number] [place] [address] Jul, [facility] [place] [facility] [address] [id number] [place] [address] Jul, [facility] [place] [facility] [address] [id number] [place] [address] Jul, [facility] [place] [facility] [address] [id number] [place] [address] Jun, [facility] [place] [facility] [address] [id number] [place] [address] Jun, [facility] [place] [facility] [address] [id number] [place] [address] May, [facility] [place] [facility] [address] [id number] [place] [address] May, [facility] [place] [facility] [address] [id number] [place] [address] Apr, [facility] [place] [facility] [address] [id number] [place] [address] Apr, [facility] [place] [facility] [address] [id number], [place] [address] Apr, [facility] [place] [facility] [address] [id number], [place] [address] Apr, [facility] [place] [facility] [address] [id number] [place] [address] Mar, [facility] [place] [facility] [address] [id number] [place] [address] Mar, [facility] [place] [facility] [address] [id number] [place] [address] Mar, [facility] [place] [facility] [address] [id number] [place] [address] Mar, [facility] [place] [facility] [address] [id number] [place] [address] February, [facility] [place] [facility] [address] [id number] [place] [address] February, [facility] [place] [facility] [address] [id number] [place] [address] February, [facility] [place] [facility] [address] [id number] [place] [address] February, [facility] [place] [facility] [address] [id number] [place] [address] February, [facility] [place] [facility] [address] [id number] [place] [address] February, [facility] [place] [facility] [address] [id number] [place] [address] Jan, [facility] [place] [facility] [address] [id number] [place] [address] Jan, [facility] [place] [facility] [address] [id number] [place] [address] Dec, [facility] [place] [facility] [address] [id number] [place] [address] Dec, [facility] [place] [facility] [address] [id number] [place] [address] Nov, [facility] [place] [facility] [address] [id number] [place] [address] Nov, [facility] [place] [facility] [address] [id number] [place] [address] Oct, [facility] [place] [facility] [address] [id number] [place] [address] Oct, [facility] [place] [facility] [address] [id number] [place] [address] Oct, [facility] [place] [facility] [address] [id number] [place] [address] Oct, [facility] [address] [id number] [place] [address] Sep, [facility] [address] [id number] [place] [address] Sep, [facility] [address] [id number] [place] [address] Sep, [facility] [address] [id number] [place] [address] Sep, [facility] [address] [id number] [place] [address] Sep, [facility] [address] [id number] [place] [address] Sep, [facility] [address] [id number] [place] [address] Sep, [facility] [address] [id number] [place] [address] Sep, [facility] [address] [id number] [place] [address] Aug, [facility] [address] [id number] [place] [address] Aug, [facility] [place] [facility] [address] [id number], [place] [address] Aug, [facility] [place] [facility] [address] [id number] [place] [address] Aug, [facility] [place] [facility] [address] [id number] [place] [address] Aug, [facility] [place] [facility] [address] [id number] [place] [address] Aug, [facility] [place] [facility] [address] [id number], [place] [address] Aug, [facility] [address] [id number] [place] [address] Aug, [facility] [place] [facility] [address] [id number] [place] [address] Aug, [facility] [place] [facility] [address] [id number] [place] [address] Jul, [facility] [place] [facility] [address] [id number] [place] [address] Jun, [facility] [place] [facility] [address] [id number] [place] [address] May, [facility] [place] [facility] [address] [id number] [place] [address] May, [facility] [place] [facility] [address] [id number] [place] [address] May, [facility] [place] [facility] [address] [id number] [place] [address] Apr, [facility] [place] [facility] [address] [id number] [place] [address] Mar, [facility] [place] [facility] [address] [id number] [place] [address] February, [facility] [place] [facility] [address] [id number], [place] [address] Oct, [facility] [place] [facility] [address] [id number] [place] [address] Oct, [facility] [place] [facility] [address] [id number] [place] [address] Oct, [facility] [place] [facility] [address] [id number] [place] [address] Oct, [facility] [place] [facility] [address] [id number] [place] [address] Oct, [facility] [place] [facility] [address] [id number] [place] [address] Oct, [facility] [place] [facility] [address] [id number] [place] [address] Sep, [facility] [place] [facility] [address] [id number] [place] [address] Sep, [facility] [place] [facility] [address] [id number] [place] [address] Aug, [facility] [place] [facility] [address] [id number] [place] [address] Aug, [facility] [place] [facility] [address] [id number] [place] [address] Jul, [facility] [place] [facility] [address] [id number] [place] [address] Jul, [facility] [place] [facility] [address] [id number] [place] [address] Jul, [facility] [place] [facility] [address] [id number] [place] [address] Jul, [facility] [place] [facility] [address] [id number] [place] [address] Jul, [facility] [place] [facility] [address] [id number] [place] [address] Jul, [facility] [place] [facility] [address] [id number] [place] [address] Jul, [facility] [place] [facility] [address] [id number] [place] [address] Jul, [facility] [place] [facility] [address] [id number] [place] [address] 16 Jun, 2012 [facility] [place] [facility] [address] [id number] [place] [address] Jun, [facility] [place] [facility] [address] [id number] [place] [address] May, [facility] [place] [facility] [address] [id number] [place] [address] Apr, [facility] [place] [facility] [address] [id number] [place] [address] Mar, [facility] [place] [facility] [address] [id number] [place] [address] Mar, [facility] [place] [facility] [address] [id number] [place] [address] Mar, [facility] [place] [facility] [address] [id number] [place] [address] Mar, [facility] [place] [facility] [address] [id number] [place] [address] Jan, [facility] [place] [facility] [address] [id number] [place] [address] Nov, [facility] [place] [facility] [address] [id number] [place] [address] Nov, [facility] [place] [facility] [address] [id number] [place] [address] Nov, [facility] [place] [facility] [address] [id number] [place] [address] Oct, [facility] [place] [facility] [address] [id number] [place] [address] Sep, [facility] [place] [facility] [address] [id number] [place] [address] Sep, [facility] [place] [facility] [address] [id number] [place] [address] Aug, [facility] [place] [facility] [address] [id number] [place] [address] Aug, [facility] [place] [facility] [address] [id number] [place] [address] Aug, [facility] [place] [facility] [address] [id number] [address] Aug, [facility] [id number] [address] Jul, [facility] [id number], [place] [address] May, [facility] [id number], [place] [address] Jan, [facility] [id number] [place] [address] Nov, [facility] [id number] [place] [address] Apr, [facility] [id number] [place] [address] Dec, [facility] [id number] [place] [address] Nov, IMMUNIZATIONS No Known Immunizations SOCIAL HISTORY Never Assessed REASON FOR VISIT xanax refill PLAN OF CARE VITAL SIGNS MEDICATIONS Medication Instructions Dosage Frequency Start Date End Date Duration Status Xanax 0.5 MG Orally daily prn 1 tablet Sep, 30 days Active RESULTS No Results PROCEDURES No Known procedures INSTRUCTIONS MEDICATIONS ADMINISTERED No Known Medications MEDICAL (GENERAL) HISTORY Type Description Date Medical History Cardiovascular nwwhsvng-IZB-Mlyrswbu, non-obstructive per (01/2011) Dr. Mendoza Medical History Stress test 03/07/13-Dr. Kelly Dietrich normal Medical History Hypertension Medical History Asthma Medical History Gastrointestinal Disorder--IBS, GERD, Hx of fatty liver Medical History Hernia 1979 Medical History Cervical dysplasia 02/16-Pap LGSIL/[place]-mild dysplasia Medical History Hyperlipidemia Medical History Rheumatoid [...] injury 07/10/15-07/11/2015 Hospitalization History Symptomatic Hypokalemia/Nause-[facility]ia [facility] 05/13/16 Hospitalization History Stroke 05/03/2017 Hospitalization History stroke 08/24/2017--09/01/2017
--- OUTSIDE RECORDS SUMMARY | 2019-05-22 07:54 | XMS REPORT ---
Author Author LORI SNOWDEN Organization [facility] Address [address] [place] [address] Care Team Providers Care Pest Controller Name Role Phone LORI SNOWDEN Unavailable PROBLEMS Type Condition ICD9-CM Code [id number] Code Onset Dates Condition Status SNOMED Code Problem ADHD (attention deficit hyperactivity disorder), combined type F90.2 Active 19104980 Problem Generalized anxiety disorder F41.1 Active 26723031 Problem Asthma J45.909 Active 662236993 Problem Dysthymic disorder F34.1 Active 78632191 Problem Hypertension I10 Active 41346700 Problem Sleep apnea in adult G47.30 Active 35956154 Problem Chronic pain syndrome G89.4 Active 595683619 Problem Rheumatoid arthritis involving multiple sites, unspecified rheumatoid factor presence M06.9 Active 934820603 Problem Anxiety F41.9 Active 46505266 Problem Gastroesophageal reflux disease with esophagitis K21.0 Active 273597301 Problem Primary insomnia F51.01 Active 3118419 Problem Chronic obstructive pulmonary disease, unspecified COPD type J44.9 Active 13644070 Problem Arteriosclerotic coronary artery disease I25.10 Active 76099972 Problem Weight gain R63.5 Active 5590384 Problem Rheumatoid arthritis M06.9 Active 38935115 Problem Panic attacks F41.0 Active 986847163 Problem Irritable bowel syndrome with diarrhea K58.0 Active 831985075 Problem Seasonal allergies J30.2 Active 317286575 Problem Mild episode of recurrent major depressive disorder F33.0 Active 549616761 Problem Neuropathy G62.9 Active 978597636 Problem Other insomnia G47.09 Active 337684164 Problem Mixed hyperlipidemia E78.2 Active 423824474 Problem Hyperinsulinemia E16.1 Active 05799660 Problem Other residential (current) drug therapy Z79.899 Active 931574545 Problem Cerebrovascular accident (CVA), unspecified mechanism I63.9 Active 763050095 Problem Chronic obstructive pulmonary disease, unspecified J44.9 Active 28538007981289700 Problem Obstructive sleep apnea G47.33 Active 28340873 ALLERGIES No Information ENCOUNTERS Encounter Location Date Diagnosis [facility] [id number] [place] [address] Jul, [place] [id number] [place] [address] May, Primary insomnia F51.01 [place] [id number] [place] [address] May, Mild episode of recurrent major depressive disorder F33.0 [place] [id number] [place] [address] May, [place] [id number] [place] [address] May, Chronic obstructive pulmonary disease, unspecified COPD type J44.9 ; Primary insomnia F51.01 ; Fatigue, unspecified type R53.83 and Weight gain R63.5 [place] [id number] [place] [address] May, Thrush B37.0 [place] [id number] [place] [address] May, Mild episode of recurrent major depressive disorder F33.0 and Generalized anxiety disorder F41.1 [place] [id number] [place] [address] May, Thrush B37.0 [place] [id number] [place] [address] Apr, Cough R05 [place] [id number] [place] [address] Mar, Mild episode of recurrent major depressive disorder F33.0 [place] [id number] [place] [address] Mar, Mild episode of recurrent major depressive disorder F33.0 and Generalized anxiety disorder F41.1 [facility] [id number] [place] [address] Mar, Seasonal allergies J30.2 [facility] [id number] [place] [address] Mar, Seasonal allergies J30.2 [facility] [id number] [place] [address] February, Generalized anxiety disorder F41.1 [facility] [id number] [place] [address] February, Cough R05 and Seasonal allergies J30.2 [facility] [address] [address] February, Generalized anxiety disorder F41.1 and Mild episode of recurrent major depressive disorder F33.0 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 [address] [address] February, [facility] [id number] [place] [address] Jan, Mixed hyperlipidemia E78.2 [facility] [id number] [place] [address] Jan, [facility] [id number] [place] [address] Jan, [facility] [address] [address] Jan, [facility] [id number] [place] [address] Jan, [facility] [address] [address] Dec, [facility] [id number] [place] [address] Dec, [facility] [id number] [place] [address] Dec, [facility] [id number] [place] [address] Nov, Dysthymic disorder F34.1 [facility] [id number] [place] [address] Oct, [facility] [id number] [place] [address] Oct, [facility] [id number] [place] [address] Oct, [facility] [id number] [place] [address] Oct, Diarrhea, unspecified type R19.7 and Dysuria R30.0 [facility] [id number] [place] [address] Oct, [facility] [id number] [place] [address] Sep, [facility] [id number] [place] [address] Sep, [facility] [id number] [place] [address] Sep, Anxiety F41.9 [facility] [id number] [place] [address] Sep, Cerebrovascular accident (CVA), unspecified mechanism I63.9 ; Mixed hyperlipidemia E78.2 ; Gastroesophageal reflux disease with esophagitis K21.0 and Anxiety F41.9 [facility] [id number] [place] [address] Sep, [facility] [address] [address] Aug, Chronic obstructive pulmonary disease, unspecified J44.9 ; Asthma J45.909 ; Nausea R11.0 ; Dysthymic disorder F34.1 ; Cerebrovascular accident (CVA), unspecified mechanism I63.9 and Rheumatoid arthritis M06.9 [place] [address] [address] Aug, Nausea R11.0 ; Encounter for immunization Z23 ; Sleep apnea in adult G47.30 ; Rheumatoid arthritis involving multiple sites, unspecified rheumatoid factor presence M06.9 ; Generalized anxiety disorder F41.1 ; Dysthymic disorder F34.1 and Asthma J45.909 [place] [address] [address] Jul, [address] [address] May, ADHD (attention deficit hyperactivity disorder), combined type F90.2 ; Generalized anxiety disorder F41.1 and Persistent depressive disorder F34.1 [place] [address] [address] May, Cerebrovascular accident (CVA), unspecified mechanism I63.9 [place] [address] [address] Apr, Mixed hyperlipidemia E78.2 and Cerebrovascular accident (CVA), unspecified mechanism I63.9 [place] [address] [address] Apr, Generalized anxiety disorder F41.[address] [address] Apr, Bronchitis J40 and Tobacco use Z72.0 [place] [address] [address] Apr, Mixed hyperlipidemia E78.2 [place] [address] [place] [address] Apr, 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 [id number] [place] [address] Apr, Generalized anxiety disorder F41.1 [place] [address] [address] Apr, Obstructive sleep apnea G47.33 and Hyperinsulinemia E16.1 [place] [address] [address] Apr, ADHD (attention deficit hyperactivity disorder), combined type F90.2 ; Generalized anxiety disorder F41.1 and Persistent depressive disorder F34.1 [place] [id number] [place] [address] Mar, [place] [address] [address] Mar, Generalized anxiety disorder F41.1 [place] [address] [address] Mar, Tarsal tunnel syndrome of both lower extremities G57.53 [place] [id number] [place] [address] February, [place] [id number] [place] [address] February, [facility] [id number] [place] [address] February, Asthma J45.909 [place] [id number] [place] [address] February, Generalized anxiety disorder F41.1 [facility] [id number] [place] [address] February, Hypoxemia R09.02 ; Hyperglycemia R73.9 ; Rheumatoid arthritis M06.9 and Generalized anxiety disorder F41.1 [place] [id number] [place] [address] February, [place] [id number] [place] [address] Jan, Chronic obstructive pulmonary disease, unspecified J44.9 [place] [address] [address] Jan, Chronic pain syndrome G89.4 [place] [address] [address] Jan, Hypoxemia R09.02 [place] [address] [address] Jan, [place] [address] [address] Jan, Chronic obstructive pulmonary disease, unspecified J44.9 ; Hypoxemia R09.02 ; Other insomnia G47.09 and Left anterior shoulder pain M25.512 [place] [address] [address] Jan, Numbness in feet R20.0 and Neuropathy G62.9 [place] [id number] [place] [address] Jan, [place] [address] [address] Dec, Acute pain of left shoulder M25.512 [place] [id number] [place] [address] Dec, Acute pain of left shoulder M25.512 [place] [id number] [place] [address] Dec, Generalized anxiety disorder F41.1 [place] [id number] [place] [address] Dec, Generalized anxiety disorder F41.1 [facility] [id number] [place] [address] Nov, ADHD (attention deficit hyperactivity disorder), combined type F90.2 ; Generalized anxiety disorder F41.1 and Persistent depressive disorder F34.1 [facility] [id number] [place] [address] Nov, Acute pain of left shoulder M25.512 [facility] [id number] [place] [address] Nov, ADHD (attention deficit hyperactivity disorder), combined type F90.2 ; Generalized anxiety disorder F41.1 and Persistent depressive disorder F34.1 [facility] [id number] [place] [address] Nov, Chronic pain syndrome G89.4 [facility] [id number] [place] [address] Nov, Chronic pain syndrome G89.4 [facility] [id number] [place] [address] 08 Nov, 2016 Acute pain of left shoulder M25.512 [facility] [id number] [place] [address] 07 Nov, 2016 Generalized anxiety disorder F41.1 [facility] [id number] [place] [address] Nov, Acute pain of left shoulder M25.512 [facility] [id number] [place] [address] Nov, ADHD (attention deficit hyperactivity disorder), combined type F90.2 ; Generalized anxiety disorder F41.1 and Persistent depressive disorder F34.1 [facility] [id number] [place] [address] Nov, Acute pain of left shoulder M25.512 ; Generalized anxiety disorder F41.1 ; Chronic pain syndrome G89.4 ; Hyperinsulinemia E16.1 ; Pain of left foot M79.672 and Pain in right foot M79.671 [place] [id number] [place] [address] Oct, ADHD (attention deficit hyperactivity disorder), combined type F90.2 ; Generalized anxiety disorder F41.1 and Dysthymic disorder F34.1 [place] [address] [address] Sep, [place] [address] [address] Sep, [address] [address] Sep, Routine gynecological examination V72.31 ; Cervical cancer screening Z12.4 ; Breast cancer screening Z12.39 ; Colon cancer screening Z12.11 ; Hypokalemia E87.6 ; Herpes simplex type 1 infection B00.9 and Abscess of right axilla L02.411 [place] [id number] [place] [address] Sep, [address] [address] Sep, ADHD (attention deficit hyperactivity disorder), combined type F90.2 ; Generalized anxiety disorder F41.1 and Dysthymic disorder F34.1 [place] [id number] [place] [address] Aug, [place] [id number] [place] [address] Aug, [place] [id number] [place] [address] Aug, Generalized anxiety disorder F41.1 [place] [id number] [place] [address] Aug, ADHD (attention deficit hyperactivity disorder), combined type F90.2 ; Generalized anxiety disorder F41.1 and Dysthymic disorder F34.1 [place] [id number] [place] [address] Jul, Chronic pain syndrome G89.4 ; Hypertension I10 ; Hypokalemia E87.6 ; Asthma J45.909 and Nausea R11.0 [place] [id number] [place] [address] Jul, [place] [address] [address] Jul, Asthma J45.909 [place] [address] [address] Jul, ADHD (attention deficit hyperactivity disorder), combined type F90.2 ; Generalized anxiety disorder F41.1 and Dysthymic disorder F34.1 [place] [id number] [place] [address] Jul, [place] [address] [address] Jul, Hypertension I10 ; Arteriosclerotic coronary artery disease I25.10 ; Mixed hyperlipidemia E78.2 ; 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 and Hyperglycemia R73.9 [place] [id number] [place] [address] 16 Jun, 2016 Hypokalemia E87.6 and Hyperglycemia R73.9 [place] [id number] [place] [address] 14 Jun, 2016 [place] [id number] [place] [address] 13 Jun, 2016 Abnormal kidney function N28.9 [place] [id number] [place] [address] 09 Jun, 2016 [place] [id number] [place] [address] Jun, ADHD (attention deficit hyperactivity disorder), combined type F90.2 ; Generalized anxiety disorder F41.1 and Dysthymic disorder F34.1 [place] [address] [address] Jun, Generalized anxiety disorder F41.1 and Dysthymic disorder F34.1 [place] [address] [address] Jun, Hypokalemia E87.6 [place] [address] [address] May, Hypokalemia E87.6 ; Vertigo R42 and Hyperinsulinemia E16.1 [place] [address] [address] May, [place] [address] [address] May, Abnormal kidney function N28.9 ; Hyperinsulinemia E16.1 and Nausea R11.0 [place] [address] [address] May, Hypokalemia E87.6 ; Nausea R11.0 ; Epigastric pain R10.13 ; Dehydration E86.0 ; Diaphoresis R61 and Right arm pain M79.601 [place] [address] [address] May, [place] [address] [address] May, Hypokalemia E87.6 [place] [address] [address] May, Hypokalemia E87.6 [place] [address] [address] Apr, [place] [address] [address] Apr, ADHD (attention deficit hyperactivity disorder), combined type F90.2 ; Generalized anxiety disorder F41.1 and Dysthymic disorder F34.1 [place] [id number] [place] [address] Apr, Right arm pain M79.601 and Hyperinsulinemia E16.1 [place] [id number] [place] [address] Mar, [place] [id number] [place] [address] Mar, [place] [id number] [place] [address] Mar, Hyperinsulinemia E16.1 ; Hyperlipidemia, unspecified hyperlipidemia type E78.5 ; Central venous catheter in place Z78.9 ; Generalized anxiety disorder F41.1 and Urinary tract infection, site not specified N39.0 [place] [id number] [place] [address] Mar, ADHD (attention deficit hyperactivity disorder), combined type F90.2 ; Generalized anxiety disorder F41.1 and Dysthymic disorder F34.1 [place] [id number] [place] [address] February, ADHD (attention deficit hyperactivity disorder), combined type F90.2 ; Generalized anxiety disorder F41.1 and Dysthymic disorder F34.1 [place] [id number] [place] [address] February, [place] [id number] [place] [address] February, [place] [id number] [place] [address] February, Hypertension I10 and Weight gain R63.5 [place] [id number] [place] [address] February, Major depressive disorder, recurrent, moderate F33.1 and Generalized anxiety disorder F41.1 [place] [id number] [address] February, ADHD (attention deficit hyperactivity disorder), combined type F90.2 ; Generalized anxiety disorder F41.1 and Dysthymic disorder F34.1 [facility] [id number] [place] [address] February, [facility] [id number] [place] [address] February, Asthma J45.909 ; Weight gain R63.5 ; Hypertension I10 ; Rheumatoid arthritis M06.9 and Chronic pain syndrome G89.4 [facility] [id number] [place] [address] Jan, ADHD (attention deficit hyperactivity disorder), combined type F90.2 ; Generalized anxiety disorder F41.1 and Dysthymic disorder F34.1 [facility] [id number] [place] [address] Dec, ADHD (attention deficit hyperactivity disorder), combined type F90.2 ; Generalized anxiety disorder F41.1 and Dysthymic disorder F34.1 [facility] [id number] [place] [address] Dec, [facility] [id number] [place] [address] Nov, [facility] [id number] [place] [address] Nov, [facility] [id number] [place] [address] Nov, [facility] [id number] [place] [address] Nov, [facility] [id number] [place] [address] Oct, [facility] [id number] [place] [address] Oct, [facility] [id number] [address] Oct, [facility] [id number] [address] Sep, [facility] [id number] [address] Sep, [facility] [id number] [place] [phone] Sep, Agoraphobia with panic disorder F40.01 ; Attention-deficit hyperactivity disorder, combined type F90.2 and Dysthymic disorder F34.1 [facility] [id number] [place] [phone] Aug, [facility] [id number] [address] Aug, [facility] [id number] [address] Aug, [facility] [id number] [address] Aug, Dysthymic disorder F34.1 ; Generalized anxiety disorder F41.1 and ADHD (attention deficit hyperactivity disorder), combined type F90.2 [facility] [id number] [address] Aug, ADHD (attention deficit hyperactivity disorder), combined type F90.2 ; Generalized anxiety disorder F41.1 and Dysthymic disorder F34.1 [facility] [id number] [address] Jul, Urinary tract infection, site not specified N39.0 ; Hypotension, unspecified I95.9 and Breast cancer screening Z12.39 [facility] [id number] [address] Jul, [facility] [id number] [place] [phone] Jul, [facility] [id number] [place] [phone] Jul, Urinary tract infection, site not specified N39.0 ; Nausea R11.0 ; Gastroenteritis K52.9 ; Renal failure N19 and Other hypotension I95.89 [facility] [id number] [place] [phone] Jul, [facility] [facility] [address] [address] Jul, [facility] [address] [address] Jul, [place] [address] [address] Jun, [place] [address] [place] [id number] [place] [address] Jun, Major depression in partial remission 296.25 ; Generalized anxiety disorder 300.02 and ADHD, predominantly inattentive type 314.01 [place] [id number] [place] [address] May, [place] [address] [address] Apr, Major depressive disorder, recurrent episode, severe, without mention of psychotic behavior 296.33 ; Agoraphobia with panic disorder 300.21 and Generalized anxiety disorder 300.02 [place] [address] [address] [id number] [place] [address] Apr, ADHD (attention deficit hyperactivity disorder), combined type 314.01 ; Generalized anxiety disorder 300.02 and Dysthymic disorder 300.[address] [address] Apr, CAD (coronary artery disease) 414.00 ; HTN (hypertension) 401.9 and Tobacco use 305.[address] [address] Apr, [facility] [id number] [place] [address] Mar, ADHD (attention deficit hyperactivity disorder), combined type 314.01 ; Generalized anxiety disorder 300.02 ; Dysthymic disorder 300.4 ; No condition on [place] II V71.09 ; Rheumatoid arthritis 714.0 ; Incontinence 788.30 ; Irritable bowel syndrome 564.1 ; Osteoporosis 733.00 and Chronic pain 338.29 [facility] [address] [id number] [place] [address] Mar, Agoraphobia with panic disorder 300.21 and Major depressive disorder, recurrent episode, moderate 296.32 [facility] [address] [id number] [place] [address] Mar, [facility] [id number] [place] [address] February, [facility] [id number] [place] [address] February, Agoraphobia with panic disorder 300.21 and Major depressive disorder, recurrent episode, moderate 296.32 [facility] [id number] [place] [address] February, [facility] [id number] [place] [address] Jan, [facility] [address] [id number] [place] [address] Jan, [facility] [id number] [place] [address] Dec, [facility] [id number] [place] [address] Dec, [facility] [address] [id number] [place] [address] Dec, [facility] [id number] [place] [address] Dec, [facility] [place] [facility] [address] [id number] [place] [address] Dec, [facility] [place] [facility] [address] [id number] [place] [address] Dec, [facility] [place] [facility] [address] [facility] [place] [id number] [place] [address] Nov, [facility] [place] [facility] [address] [id number] [place] [address] Nov, [facility] [place] [facility] [address] [id number] [place] [address] Nov, [facility] [place] [facility] [address] [facility] [place] [place] [id number] [place] [address] Nov, [facility] [place] [facility] [address] [facility] [place] [id number] [place] [address] Nov, [facility] [place] [facility] [address] [facility] [place] [id number] [place] [address] Nov, [facility] [place] [facility] [address] [facility] [place] [place] [id number] [place] [address] Nov, [facility] [place] [facility] [address] [facility] [place] [place] [id number] [place] [address] Nov, [facility] [place] [facility] [address] [facility] [place] [id number] [place] [address] Oct, [facility] [place] [facility] [address] [facility] [place] [place] [id number] [place] [address] Oct, [facility] [place] [facility] [address] [facility] [place] [id number] [place] [address] Oct, [facility] [place] [facility] [address] [facility] [place] [id number] [place] [address] Oct, [facility] [place] [facility] [address] [facility] [place] [place] [id number] [place] [address] Oct, [facility] [place] [facility] [address] [id number] [place] [address] Oct, [facility] [place] [facility] [address] [id number] [place] [address] Sep, [facility] [place] [facility] [address] [id number] [place] [address] Sep, [facility] [place] [facility] [address] [id number] [place] [address] Sep, [facility] [place] [facility] [address] [id number] [place] [address] Sep, [facility] [place] [facility] [address] [id number] [place] [address] Sep, [facility] [place] [facility] [address] [id number] [place] [address] Sep, [facility] [place] [facility] [address] [id number] [place] [address] Sep, [facility] [place] [facility] [address] [id number] [place] [address] Aug, [facility] [place] [facility] [address] [id number] [place] [address] Aug, [facility] [place] [facility] [address] [id number] [place] [address] Aug, [facility] [place] [facility] [address] [id number] [place] [address] Aug, [facility] [place] [facility] [address] [id number] [place] [address] Aug, [facility] [place] [facility] [address] [id number] [place] [address] Aug, [facility] [place] [facility] [address] [id number] [place] [address] 17 Jul, 2014 [facility] [place] [facility] [address] [id number] [place] [address] Jul, [facility] [place] [facility] [address] [id number] [place] [address] Jul, [facility] [place] [facility] [address] [id number] [place] [address] Jul, [facility] [place] [facility] [address] [id number] [place] [address] Jul, [facility] [place] [facility] [address] [id number] [place] [address] Jul, [facility] [place] [facility] [address] [id number] [place] [address] Jun, [facility] [place] [facility] [address] [id number] [place] [address] Jun, [facility] [place] [facility] [address] [id number] [place] [address] May, [facility] [place] [facility] [address] [id number] [place] [address] May, [facility] [place] [facility] [address] [id number] [place] [address] Apr, [facility] [place] [facility] [address] [id number] [place] [address] Apr, [facility] [place] [facility] [address] [id number] [place] [address] Apr, [facility] [place] [facility] [address] [id number] [place] [address] Apr, [facility] [place] [facility] [address] [id number] [place] [address] Mar, [facility] [place] [facility] [address] [id number] [place] [address] Mar, [facility] [place] [facility] [address] [id number] [place] [address] Mar, [facility] [place] [facility] [address] [id number] [place] [address] Mar, [facility] [place] [facility] [address] [id number] [place] [address] February, [facility] [place] [facility] [address] [id number] [place] [address] February, [facility] [place] [facility] [address] [id number] [place] [address] February, [facility] [place] [facility] [address] [id number] [place] [address] February, [facility] [place] [facility] [address] [id number] [place] [address] February, [facility] [place] [facility] [address] [id number] [place] [address] February, [facility] [place] [facility] [address] [id number] [place] [address] Jan, [facility] [place] [facility] [address] [id number] [place] [address] Jan, [facility] [place] [facility] [address] [id number] [place] [address] Dec, [facility] [place] [facility] [address] [id number] [place] [address] Dec, [facility] [place] [facility] [address] [id number] [place] [address] Nov, [facility] [place] [facility] [address] [id number] [place] [address] Nov, [facility] [place] [facility] [address] [id number] [place] [address] Oct, [facility] [place] [facility] [address] [id number] [place] [address] Oct, [facility] [place] [facility] [address] [id number] [place] [address] Oct, [facility] [address] [id number] [place] [address] Oct, [facility] [place] [facility] [address] [id number] [place] [address] Sep, [facility] [place] [facility] [address] [id number] [place] [address] Sep, [facility] [place] [facility] [address] [id number] [place] [address] Sep, [facility] [address] [id number] [place] [address] Sep, [facility] [place] [facility] [address] [id number] [place] [address] Sep, [facility] [place] [facility] [address] [facility] [place] [id number] [place] [address] Sep, [facility] [place] [facility] [address] [id number] [place] [address] Sep, [facility] [place] [facility] [address] [id number] [place] [address] Sep, [facility] [place] [facility] [address] [id number] [place] [address] Aug, [facility] [place] [facility] [address] [id number] [place] [address] Aug, [facility] [place] [facility] [address] [id number] [place] [address] Aug, [facility] [place] [facility] [address] [id number] [place] [address] Aug, [facility] [place] [facility] [address] [id number] [place] [address] Aug, [facility] [place] [facility] [address] [facility] [place] [place] [id number] [place] [address] Aug, [facility] [place] [facility] [address] [id number] [place] [address] Aug, [facility] [address] [id number] [place] [address] Aug, [facility] [place] [facility] [address] [id number] [place] [address] Aug, [facility] [place] [facility] [address] [id number] [place] [address] Jul, [facility] [place] [facility] [address] [id number] [place] [address] Jun, [facility] [place] [facility] [address] [id number] [place] [address] May, [facility] [place] [facility] [address] [id number] [place] [address] May, [facility] [address] [id number] [place] [address] May, [facility] [place] [facility] [address] [id number] [place] [address] Apr, [facility] [place] [facility] [address] [id number] [place] [address] Mar, [facility] [place] [facility] [address] [id number] [place] [address] February, [facility] [place] [facility] [address] [id number] [place] [address] Oct, [facility] [place] [facility] [address] [id number] [place] [address] Oct, [facility] [place] [facility] [address] [id number] [place] [address] Oct, [facility] [place] [facility] [address] [id number] [place] [address] Oct, [facility] [place] [facility] [address] [id number] [place] [address] Oct, [facility] [place] [facility] [address] [id number] [place] [address] Oct, [facility] [place] [facility] [address] [id number] [place] [address] Sep, [facility] [place] [facility] [address] [id number] [place] [address] Sep, [facility] [place] [facility] [address] [id number] [place] [address] Aug, [facility] [place] [facility] [address] [id number] [place] [address] Aug, [facility] [place] [facility] [address] [id number] [place] [address] Jul, [facility] [place] [facility] [address] [id number] [place] [address] Jul, [facility] [place] [facility] [address] [id number] [place] [address] Jul, [facility] [place] [facility] [address] [id number] [place] [address] Jul, [facility] [place] [facility] [address] [id number] [place] [address] Jul, [facility] [place] [facility] [address] [id number] [place] [address] Jul, [facility] [place] [facility] [address] [id number] [place] [address] Jul, [facility] [place] [facility] [address] [id number] [place] [address] Jul, [facility] [place] [facility] [address] [id number] [place] [address] 16 Jun, 2012 [facility] [place] [facility] [address] [id number] [place] [address] Jun, [facility] [place] [facility] [address] [id number] [place] [address] May, [facility] [place] [facility] [address] [id number] [place] [address] Apr, [facility] [place] [facility] [address] [id number] [place] [address] Mar, [facility] [place] [facility] [address] [id number] [place] [address] Mar, [facility] [place] [facility] [address] [id number] [place] [address] Mar, [facility] [place] [facility] [address] [id number] [place] [address] Mar, [facility] [place] [facility] [address] [id number] [place] [address] Jan, [facility] [place] [facility] [address] [id number] [place] [address] Nov, [facility] [place] [facility] [address] [id number] [place] [address] Nov, [facility] [place] [facility] [address] [id number] [place] [address] Nov, [facility] [place] [facility] [address] [id number] [place] [address] Oct, [facility] [place] [facility] [address] [id number] [place] [address] Sep, [facility] [place] [facility] [address] [id number] [place] [address] Sep, [facility] [place] [facility] [address] [id number] [place] [address] Aug, [facility] [place] [facility] [address] [id number] [place] [address] Aug, [facility] [place] [facility] [address] [id number] [place] [address] Aug, [facility] [place] [facility] [address] [address] Aug, [facility] [address] [address] Jul, [facility] [address] [address] May, [facility] [address] [address] Jan, [facility] [id number] [place] [address] Nov, [facility] [id number] [place] [address] Apr, [facility] [address] [address] Dec, [facility] [address] [address] Nov, IMMUNIZATIONS No Known Immunizations SOCIAL HISTORY Never Assessed REASON FOR VISIT Medication question PLAN OF CARE VITAL SIGNS MEDICATIONS Medication Instructions Dosage Frequency Start Date End Date Duration Status Nystatin 289851 UNIT/ML Mouth/Throat Four times a day 5 ml swish and swallow 6h May, May, 10 days Active RESULTS No Results PROCEDURES No Known procedures INSTRUCTIONS MEDICATIONS ADMINISTERED No Known Medications MEDICAL (GENERAL) HISTORY Type Description Date Medical History Cardiovascular krhigcll-FKM-Gikzbjwm, non-obstructive per (01/2011) Dr. Mendoza Medical History Stress test 03/07/13-Dr. Kelly Dietrich normal Medical History Hypertension Medical History Asthma Medical History Gastrointestinal Disorder--IBS, GERD, Hx of fatty liver Medical History Hernia 1979 Medical History Cervical dysplasia 02/16-Pap LGSIL/[place]-mild dysplasia Medical History Hyperlipidemia Medical History Rheumatoid [...] Hospitalization History Symptomatic Hypokalemia/Nause-Via [facility] 05/13/16 Hospitalization History Stroke 05/03/2017 Hospitalization History stroke 08/24/2017--09/01/2017
--- OUTSIDE RECORDS SUMMARY | 2019-05-22 07:54 | XMS REPORT ---
Author Author LORI SNOWDEN Organization [facility] Address [address] [place] [address] Care Team Providers [place] Demonstrator Name Role Phone LORI SNOWDEN Unavailable PROBLEMS Type Condition ICD9-CM Code GLN35-NB Code Onset Dates Condition Status SNOMED Code Problem ADHD (attention deficit hyperactivity disorder), combined type F90.2 Active 10875416 Problem Generalized anxiety disorder F41.1 Active 37752635 Problem Asthma J45.909 Active 495259569 Problem Dysthymic disorder F34.1 Active 86075833 Problem Hypertension I10 Active 51776892 Problem Sleep apnea in adult G47.30 Active 95551693 Problem Chronic pain syndrome G89.4 Active 469967297 Problem Rheumatoid arthritis involving multiple sites, unspecified rheumatoid factor presence M06.9 Active 817245036 Problem Anxiety F41.9 Active 18273392 Problem Gastroesophageal reflux disease with esophagitis K21.0 Active 679696710 Problem Primary insomnia F51.01 Active 7819921 Problem Chronic obstructive pulmonary disease, unspecified COPD type J44.9 Active 67976773 Problem Arteriosclerotic coronary artery disease I25.10 Active 91898339 Problem Weight gain R63.5 Active 6522102 Problem Rheumatoid arthritis M06.9 Active 35411493 Problem Panic attacks F41.0 Active 234449207 Problem Irritable bowel syndrome with diarrhea K58.0 Active 737384655 Problem Seasonal allergies J30.2 Active 491812691 Problem Mild episode of recurrent major depressive disorder F33.0 Active 503268521 Problem Neuropathy G62.9 Active 698796138 Problem Other insomnia G47.09 Active 403956253 Problem Mixed hyperlipidemia E78.2 Active 846709243 Problem Hyperinsulinemia E16.1 Active 20741531 Problem Other alf (current) drug therapy Z79.899 Active 455399583 Problem Cerebrovascular accident (CVA), unspecified mechanism I63.9 Active 528759882 Problem Chronic obstructive pulmonary disease, unspecified J44.9 Active [id number] Problem Obstructive sleep apnea G47.33 Active 50059000 ALLERGIES No Information ENCOUNTERS Encounter Location Date Diagnosis [place] [id number] [place] [address] Jul, [place] [id number] [place] [address] May, Primary insomnia F51.01 [place] [id number] [place] [address] May, Mild episode of recurrent major depressive disorder F33.0 [place] [id number] [place] [address] May, [place] [id number] [place] [address] May, Chronic obstructive pulmonary disease, unspecified COPD type J44.9 ; Primary insomnia F51.01 ; Fatigue, unspecified type R53.83 and Weight gain R63.5 [place] [id number] [place] [address] May, Thrush B37.0 [place] [id number] [place] [address] May, Mild episode of recurrent major depressive disorder F33.0 and Generalized anxiety disorder F41.1 [place] [id number] [place] [address] May, Thrush B37.0 [place] [id number] [place] [address] Apr, Cough R05 [place] [id number] [place] [address] Mar, Mild episode of recurrent major depressive disorder F33.0 [place] [id number] [place] [address] Mar, Mild episode of recurrent major depressive disorder F33.0 and Generalized anxiety disorder F41.1 [facility] [id number] [place] [address] Mar, Seasonal allergies J30.2 [facility] [id number] [place] [address] Mar, Seasonal allergies J30.2 [facility] [id number] [place] [address] February, Generalized anxiety disorder F41.1 [facility] [id number] [place] [address] February, Cough R05 and Seasonal allergies J30.2 [facility] [address] [address] February, Generalized anxiety disorder F41.1 and Mild episode of recurrent major depressive disorder F33.0 [facility] [address] [address] February, 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 ; Anxiety F41.9 ; Panic attacks F41.0 and Irritable bowel syndrome with diarrhea K58.0 [facility] [address] [address] February, [facility] [id number] [place] [address] Jan, Mixed hyperlipidemia E78.2 [facility] [id number] [place] [address] Jan, [facility] [id number] [place] [address] Jan, [facility] [address] [address] Jan, [facility] [id number] [place] [address] Jan, [facility] [address] [address] Dec, [facility] [id number] [place] [address] Dec, [facility] [id number] [place] [address] Dec, [facility] [id number] [place] [address] Nov, Dysthymic disorder F34.1 [facility] [id number] [place] [address] Oct, [facility] [id number] [place] [address] Oct, [facility] [id number] [place] [address] Oct, [facility] [id number] [place] [address] Oct, Diarrhea, unspecified type R19.7 and Dysuria R30.0 [facility] [id number] [place] [address] Oct, [facility] [id number] [place] [address] Sep, [facility] [id number] [place] [address] Sep, [facility] [id number] [place] [address] Sep, Anxiety F41.9 [facility] [id number] [place] [address] Sep, Cerebrovascular accident (CVA), unspecified mechanism I63.9 ; Mixed hyperlipidemia E78.2 ; Gastroesophageal reflux disease with esophagitis K21.0 and Anxiety F41.9 [facility] [id number] [place] [address] Sep, [facility] [address] [address] Aug, Chronic obstructive pulmonary disease, unspecified J44.9 ; Asthma J45.909 ; Nausea R11.0 ; Dysthymic disorder F34.1 ; Cerebrovascular accident (CVA), unspecified mechanism I63.9 and Rheumatoid arthritis M06.9 [place] [address] [address] Aug, Nausea R11.0 ; Encounter for immunization Z23 ; Sleep apnea in adult G47.30 ; Rheumatoid arthritis involving multiple sites, unspecified rheumatoid factor presence M06.9 ; Generalized anxiety disorder F41.1 ; Dysthymic disorder F34.1 and Asthma J45.909 [place] [address] [address] Jul, [address] [address] May, ADHD (attention deficit hyperactivity disorder), combined type F90.2 ; Generalized anxiety disorder F41.1 and Persistent depressive disorder F34.1 [place] [address] [address] May, Cerebrovascular accident (CVA), unspecified mechanism I63.9 [place] [address] [address] Apr, Mixed hyperlipidemia E78.2 and Cerebrovascular accident (CVA), unspecified mechanism I63.9 [place] [address] [address] Apr, Generalized anxiety disorder F41.[address] [address] Apr, Bronchitis J40 and Tobacco use Z72.0 [place] [address] [address] Apr, Mixed hyperlipidemia E78.2 [place] [address] [place] [address] Apr, 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 [place] [id number] [place] [address] Apr, [facility] [id number] [place] [address] Apr, Generalized anxiety disorder F41.1 [place] [address] [address] Apr, Obstructive sleep apnea G47.33 and Hyperinsulinemia E16.1 [place] [address] [address] Apr, ADHD (attention deficit hyperactivity disorder), combined type F90.2 ; Generalized anxiety disorder F41.1 and Persistent depressive disorder F34.1 [place] [id number] [place] [address] Mar, [place] [address] [address] Mar, Generalized anxiety disorder F41.1 [place] [address] [address] Mar, Tarsal tunnel syndrome of both lower extremities G57.53 [place] [id number] [place] [address] February, [place] [id number] [place] [address] February, [facility] [id number] [place] [address] February, Asthma J45.909 [place] [id number] [place] [address] February, Generalized anxiety disorder F41.1 [facility] [id number] [place] [address] February, Hypoxemia R09.02 ; Hyperglycemia R73.9 ; Rheumatoid arthritis M06.9 and Generalized anxiety disorder F41.1 [place] [id number] [place] [address] February, [place] [id number] [place] [address] Jan, Chronic obstructive pulmonary disease, unspecified J44.9 [place] [address] [address] Jan, Chronic pain syndrome G89.4 [place] [address] [address] Jan, Hypoxemia R09.02 [place] [address] [address] Jan, [place] [address] [address] Jan, Chronic obstructive pulmonary disease, unspecified J44.9 ; Hypoxemia R09.02 ; Other insomnia G47.09 and Left anterior shoulder pain M25.512 [place] [address] [address] Jan, Numbness in feet R20.0 and Neuropathy G62.9 [place] [id number] [place] [address] Jan, [place] [address] [address] Dec, Acute pain of left shoulder M25.512 [place] [id number] [place] [address] Dec, Acute pain of left shoulder M25.512 [place] [id number] [place] [address] Dec, Generalized anxiety disorder F41.1 [place] [id number] [place] [address] Dec, Generalized anxiety disorder F41.1 [facility] [address] [place] [address] Nov, ADHD (attention deficit hyperactivity disorder), combined type F90.2 ; Generalized anxiety disorder F41.1 and Persistent depressive disorder F34.1 [facility] [id number] [place] [address] Nov, Acute pain of left shoulder M25.512 [facility] [id number] [place] [address] Nov, ADHD (attention deficit hyperactivity disorder), combined type F90.2 ; Generalized anxiety disorder F41.1 and Persistent depressive disorder F34.1 [facility] [id number] [place] [address] Nov, Chronic pain syndrome G89.4 [facility] [id number] [place] [address] Nov, Chronic pain syndrome G89.4 [facility] [id number] [place] [address] 08 Nov, 2016 Acute pain of left shoulder M25.512 [facility] [id number] [place] [address] 07 Nov, 2016 Generalized anxiety disorder F41.1 [facility] [id number] [place] [address] Nov, Acute pain of left shoulder M25.512 [facility] [id number] [place] [address] Nov, ADHD (attention deficit hyperactivity disorder), combined type F90.2 ; Generalized anxiety disorder F41.1 and Persistent depressive disorder F34.1 [facility] [address] [place] [address] Nov, Acute pain of left shoulder M25.512 ; Generalized anxiety disorder F41.1 ; Chronic pain syndrome G89.4 ; Hyperinsulinemia E16.1 ; Pain of left foot M79.672 and Pain in right foot M79.671 [place] [id number] [place] [address] Oct, ADHD (attention deficit hyperactivity disorder), combined type F90.2 ; Generalized anxiety disorder F41.1 and Dysthymic disorder F34.1 [place] [address] [address] Sep, [place] [address] [address] Sep, [address] [address] Sep, Routine gynecological examination V72.31 ; Cervical cancer screening Z12.4 ; Breast cancer screening Z12.39 ; Colon cancer screening Z12.11 ; Hypokalemia E87.6 ; Herpes simplex type 1 infection B00.9 and Abscess of right axilla L02.411 [place] [id number] [place] [address] Sep, [address] [address] Sep, ADHD (attention deficit hyperactivity disorder), combined type F90.2 ; Generalized anxiety disorder F41.1 and Dysthymic disorder F34.1 [place] [id number] [place] [address] Aug, [place] [id number] [place] [address] Aug, [place] [id number] [place] [address] Aug, Generalized anxiety disorder F41.1 [place] [id number] [place] [address] Aug, ADHD (attention deficit hyperactivity disorder), combined type F90.2 ; Generalized anxiety disorder F41.1 and Dysthymic disorder F34.1 [place] [id number] [place] [address] Jul, Chronic pain syndrome G89.4 ; Hypertension I10 ; Hypokalemia E87.6 ; Asthma J45.909 and Nausea R11.0 [place] [id number] [place] [address] Jul, [place] [address] [address] Jul, Asthma J45.909 [place] [address] [address] Jul, ADHD (attention deficit hyperactivity disorder), combined type F90.2 ; Generalized anxiety disorder F41.1 and Dysthymic disorder F34.1 [place] [id number] [place] [address] Jul, [place] [address] [address] Jul, Hypertension I10 ; Arteriosclerotic coronary artery disease I25.10 ; Mixed hyperlipidemia E78.2 ; 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 and Hyperglycemia R73.9 [place] [id number] [place] [address] 16 Jun, 2016 Hypokalemia E87.6 and Hyperglycemia R73.9 [place] [id number] [place] [address] 14 Jun, 2016 [place] [id number] [place] [address] 13 Jun, 2016 Abnormal kidney function N28.9 [place] [id number] [place] [address] 09 Jun, 2016 [place] [id number] [place] [address] Jun, ADHD (attention deficit hyperactivity disorder), combined type F90.2 ; Generalized anxiety disorder F41.1 and Dysthymic disorder F34.1 [place] [address] [address] Jun, Generalized anxiety disorder F41.1 and Dysthymic disorder F34.1 [place] [address] [address] Jun, Hypokalemia E87.6 [place] [address] [address] May, Hypokalemia E87.6 ; Vertigo R42 and Hyperinsulinemia E16.1 [place] [address] [address] May, [place] [address] [address] May, Abnormal kidney function N28.9 ; Hyperinsulinemia E16.1 and Nausea R11.0 [place] [address] [address] May, Hypokalemia E87.6 ; Nausea R11.0 ; Epigastric pain R10.13 ; Dehydration E86.0 ; Diaphoresis R61 and Right arm pain M79.601 [place] [address] [address] May, [place] [address] [address] May, Hypokalemia E87.6 [place] [address] [address] May, Hypokalemia E87.6 [place] [address] [address] Apr, [place] [address] [address] Apr, ADHD (attention deficit hyperactivity disorder), combined type F90.2 ; Generalized anxiety disorder F41.1 and Dysthymic disorder F34.1 [place] [address] [place] [address] Apr, Right arm pain M79.601 and Hyperinsulinemia E16.1 [place] [address] [place] [address] Mar, [place] [id number] [place] [address] Mar, [place] [id number] [place] [address] Mar, Hyperinsulinemia E16.1 ; Hyperlipidemia, unspecified hyperlipidemia type E78.5 ; Central venous catheter in place Z78.9 ; Generalized anxiety disorder F41.1 and Urinary tract infection, site not specified N39.0 [place] [id number] [place] [address] Mar, ADHD (attention deficit hyperactivity disorder), combined type F90.2 ; Generalized anxiety disorder F41.1 and Dysthymic disorder F34.1 [place] [id number] [place] [address] February, ADHD (attention deficit hyperactivity disorder), combined type F90.2 ; Generalized anxiety disorder F41.1 and Dysthymic disorder F34.1 [place] [address] [place] [address] February, [place] [id number] [place] [address] February, [place] [id number] [place] [address] February, Hypertension I10 and Weight gain R63.5 [place] [address] [place] [address] February, Major depressive disorder, recurrent, moderate F33.1 and Generalized anxiety disorder F41.1 [place] [id number] [address] February, ADHD (attention deficit hyperactivity disorder), combined type F90.2 ; Generalized anxiety disorder F41.1 and Dysthymic disorder F34.1 [facility] [address] [place] [address] February, [facility] [id number] [place] [address] February, Asthma J45.909 ; Weight gain R63.5 ; Hypertension I10 ; Rheumatoid arthritis M06.9 and Chronic pain syndrome G89.4 [facility] [id number] [place] [address] Jan, ADHD (attention deficit hyperactivity disorder), combined type F90.2 ; Generalized anxiety disorder F41.1 and Dysthymic disorder F34.1 [facility] [id number] [place] [address] Dec, ADHD (attention deficit hyperactivity disorder), combined type F90.2 ; Generalized anxiety disorder F41.1 and Dysthymic disorder F34.1 [facility] [id number] [place] [address] Dec, [facility] [address] [place] [address] Nov, [facility] [id number] [place] [address] Nov, [facility] [id number] [place] [address] Nov, [facility] [id number] [place] [address] Nov, [facility] [id number] [place] [address] Oct, [facility] [id number] [place] [address] Oct, [facility] [address] [place] [address] Oct, [facility] [address] [place] [address] Sep, [facility] [address] [place] [address] Sep, [facility] [id number] [place] [address] Sep, Agoraphobia with panic disorder F40.01 ; Attention-deficit hyperactivity disorder, combined type F90.2 and Dysthymic disorder F34.1 [facility] [address] [place] [address] Aug, [facility] [address] [place] [address] Aug, [facility] [id number] [address] Aug, [facility] [address] [place] [address] Aug, Dysthymic disorder F34.1 ; Generalized anxiety disorder F41.1 and ADHD (attention deficit hyperactivity disorder), combined type F90.2 [facility] [address] [place] [address] Aug, ADHD (attention deficit hyperactivity disorder), combined type F90.2 ; Generalized anxiety disorder F41.1 and Dysthymic disorder F34.1 [facility] [address] [place] [address] Jul, Urinary tract infection, site not specified N39.0 ; Hypotension, unspecified I95.9 and Breast cancer screening Z12.39 [facility] [address] [place] [address] Jul, [facility] [id number] [place] [address] Jul, [facility] [address] [place] [address] Jul, Urinary tract infection, site not specified N39.0 ; Nausea R11.0 ; Gastroenteritis K52.9 ; Renal failure N19 and Other hypotension I95.89 [facility] [id number] [place] [address] Jul, [facility] [address] [address] Jul, [facility] [address] [address] Jul, [place] [address] [address] Jun, [place] [id number] [place] [address] Jun, Major depression in partial remission 296.25 ; Generalized anxiety disorder 300.02 and ADHD, predominantly inattentive type 314.01 [place] [id number] [place] [address] May, [place] [address] [address] Apr, Major depressive disorder, recurrent episode, severe, without mention of psychotic behavior 296.33 ; Agoraphobia with panic disorder 300.21 and Generalized anxiety disorder 300.02 [place] [address] [place] [id number] [place] [phone] Apr, ADHD (attention deficit hyperactivity disorder), combined type 314.01 ; Generalized anxiety disorder 300.02 and Dysthymic disorder 300.[address] [address] Apr, CAD (coronary artery disease) 414.00 ; HTN (hypertension) 401.9 and Tobacco use 305.[address] [address] Apr, [facility] [id number] [place] [id number] Mar, ADHD (attention deficit hyperactivity disorder), combined type 314.01 ; Generalized anxiety disorder 300.02 ; Dysthymic disorder 300.4 ; No condition on [place] II V71.09 ; Rheumatoid arthritis 714.0 ; Incontinence 788.30 ; Irritable bowel syndrome 564.1 ; Osteoporosis 733.00 and Chronic pain 338.29 [facility] [address] [place] [id number] [place] [id number] Mar, Agoraphobia with panic disorder 300.21 and Major depressive disorder, recurrent episode, moderate 296.32 [facility] [address] [place] [id number] [place] [id number] Mar, [facility] [address] [place] [id number] [place] [address] [address] February, [facility] [id number] [place] [address] February, Agoraphobia with panic disorder 300.21 and Major depressive disorder, recurrent episode, moderate 296.32 [facility] [id number] [place] [address] February, [facility] [id number] [place] [address] Jan, [facility] [id number] [place] [address] Jan, [facility] [id number] [place] [address] Dec, [facility] [id number] [place] [address] Dec, [facility] [id number] [place] [address] Dec, [facility] [id number] [place] [address] Dec, [facility] [place] [facility] [address] [id number] [place] [address] Dec, [facility] [place] [facility] [address] [id number] [place] [address] Dec, [facility] [place] [facility] [address] [facility] [id number] [place] [address] Nov, [facility] [place] [facility] [address] [id number] [place] [address] Nov, [facility] [place] [facility] [address] [id number] [place] [address] Nov, [facility] [place] [facility] [address] [facility] [id number] [place] [address] Nov, [facility] [place] [facility] [address] [facility] [id number] [place] [address] Nov, [facility] [place] [facility] [address] [facility] [id number] [place] [address] Nov, [facility] [place] [facility] [address] [facility] [id number] [place] [address] Nov, [facility] [place] [facility] [address] [facility] [id number] [place] [address] Nov, [facility] [place] [facility] [address] [facility] [id number] [place] [address] Oct, [facility] [place] [facility] [address] [facility] [id number], [place] [address] Oct, [facility] [place] [facility] [address] [facility] [id number], [place] [address] Oct, [facility] [place] [facility] [address] [facility] [id number], [place] [address] Oct, [facility] [place] [facility] [address] [facility] [id number], [place] [address] Oct, [facility] [place] [facility] [address] [id number] [place] [address] Oct, [facility] [place] [facility] [address] [id number] [place] [address] Sep, [facility] [place] [facility] [address] [id number] [place] [address] Sep, [facility] [place] [facility] [address] [id number] [place] [address] Sep, [facility] [place] [facility] [address] [id number] [place] [address] Sep, [facility] [place] [facility] [address] [id number] [place] [address] Sep, [facility] [place] [facility] [address] [id number] [place] [address] Sep, [facility] [place] [facility] [address] [id number] [place] [address] Sep, [facility] [place] [facility] [address] [id number] [place] [address] Aug, [facility] [place] [facility] [address] [id number] [place] [address] Aug, [facility] [place] [facility] [address] [id number] [place] [address] Aug, [facility] [place] [facility] [address] [id number] [place] [address] Aug, [facility] [place] [facility] [address] [id number] [place] [address] Aug, [facility] [place] [facility] [address] [id number] [place] [address] Aug, [facility] [place] [facility] [address] [id number] [place] [address] 17 Jul, 2014 [facility] [place] [facility] [address] [id number] [place] [address] Jul, [facility] [place] [facility] [address] [id number] [place] [address] Jul, [facility] [place] [facility] [address] [id number] [place] [address] Jul, [facility] [place] [facility] [address] [id number] [place] [address] Jul, [facility] [place] [facility] [address] [id number] [place] [address] Jul, [facility] [place] [facility] [address] [id number] [place] [address] Jun, [facility] [place] [facility] [address] [id number] [place] [address] Jun, [facility] [place] [facility] [address] [id number] [place] [address] May, [facility] [place] [facility] [address] [id number] [place] [address] May, [facility] [place] [facility] [address] [id number] [place] [address] Apr, [facility] [place] [facility] [address] [id number] [place] [address] Apr, [facility] [place] [facility] [address] [id number], [place] [address] Apr, [facility] [place] [facility] [address] [id number], [place] [address] Apr, [facility] [place] [facility] [address] [id number] [place] [address] Mar, [facility] [place] [facility] [address] [id number], [place] [address] Mar, [facility] [place] [facility] [address] [id number] [place] [address] Mar, [facility] [place] [facility] [address] [id number] [place] [address] Mar, [facility] [place] [facility] [address] [id number] [place] [address] February, [facility] [place] [facility] [address] [id number] [place] [address] February, [facility] [place] [facility] [address] [id number] [place] [address] February, [facility] [place] [facility] [address] [id number] [place] [address] February, [facility] [place] [facility] [address] [id number] [place] [address] February, [facility] [place] [facility] [address] [id number] [place] [address] February, [facility] [place] [facility] [address] [id number] [place] [address] Jan, [facility] [place] [facility] [address] [id number] [place] [address] Jan, [facility] [place] [facility] [address] [id number] [place] [address] Dec, [facility] [place] [facility] [address] [id number] [place] [address] Dec, [facility] [place] [facility] [address] [id number] [place] [address] Nov, [facility] [place] [facility] [address] [id number] [place] [address] Nov, [facility] [place] [facility] [address] [id number] [place] [address] Oct, [facility] [place] [facility] [address] [id number] [place] [address] Oct, [facility] [place] [facility] [address] [id number] [place] [address] Oct, [facility] [address] [id number] [place] [address] Oct, [facility] [place] [facility] [address] [id number] [place] [address] Sep, [facility] [place] [facility] [address] [id number] [place] [address] Sep, [facility] [place] [facility] [address] [id number] [place] [address] Sep, [facility] [address] [id number] [place] [address] Sep, [facility] [place] [facility] [address] [id number] [place] [address] Sep, [facility] [place] [facility] [address] [facility] [id number] [place] [address] Sep, [facility] [place] [facility] [address] [id number] [place] [address] Sep, [facility] [place] [facility] [address] [id number] [place] [address] Sep, [facility] [place] [facility] [address] [id number], [place] [address] Aug, [facility] [place] [facility] [address] [id number], [place] [address] Aug, [facility] [place] [facility] [address] [id number], [place] [address] Aug, [facility] [place] [facility] [address] [id number], [place] [address] Aug, [facility] [place] [facility] [address] [id number], [place] [address] Aug, [facility] [place] [facility] [address] [facility] [id number], [place] [address] Aug, [facility] [place] [facility] [address] [id number], [place] [address] Aug, [facility] [address] [id number] [place] [address] Aug, [facility] [place] [facility] [address] [id number] [place] [address] Aug, [facility] [place] [facility] [address] [id number] [place] [address] Jul, [facility] [place] [facility] [address] [id number] [place] [address] Jun, [facility] [place] [facility] [address] [id number] [place] [address] May, [facility] [place] [facility] [address] [id number] [place] [address] May, [facility] [address] [id number] [place] [address] May, [facility] [place] [facility] [address] [id number] [place] [address] Apr, [facility] [place] [facility] [address] [id number] [place] [address] Mar, [facility] [place] [facility] [address] [id number] [place] [address] February, [facility] [place] [facility] [address] [id number], [place] [address] Oct, [facility] [place] [facility] [address] [id number], [place] [address] Oct, [facility] [place] [facility] [address] [id number] [place] [address] Oct, [facility] [place] [facility] [address] [id number] [place] [address] Oct, [facility] [place] [facility] [address] [id number] [place] [address] Oct, [facility] [place] [facility] [address] [id number] [place] [address] Oct, [facility] [place] [facility] [address] [id number] [place] [address] Sep, [facility] [place] [facility] [address] [id number] [place] [address] Sep, [facility] [place] [facility] [address] [id number] [place] [address] Aug, [facility] [place] [facility] [address] [id number] [place] [address] Aug, [facility] [place] [facility] [address] [id number] [place] [address] Jul, [facility] [place] [facility] [address] [id number] [place] [address] Jul, [facility] [place] [facility] [address] [id number] [place] [address] Jul, [facility] [place] [facility] [address] [id number] [place] [address] Jul, [facility] [place] [facility] [address] [id number] [place] [address] Jul, [facility] [place] [facility] [address] [id number] [place] [address] Jul, [facility] [place] [facility] [address] [id number] [place] [address] Jul, [facility] [place] [facility] [address] [id number] [place] [address] Jul, [facility] [place] [facility] [address] [id number] [place] [address] 16 Jun, 2012 [facility] [place] [facility] [address] [id number] [place] [address] Jun, [facility] [place] [facility] [address] [id number] [place] [address] May, [facility] [place] [facility] [address] [id number] [place] [address] Apr, [facility] [place] [facility] [address] [id number] [place] [address] Mar, [facility] [place] [facility] [address] [id number] [place] [address] Mar, [facility] [place] [facility] [address] [id number] [place] [address] Mar, [facility] [place] [facility] [address] [id number] [place] [address] Mar, [facility] [place] [facility] [address] [id number] [place] [address] Jan, [facility] [place] [facility] [address] [id number] [place] [address] Nov, [facility] [place] [facility] [address] [id number] [place] [address] Nov, [facility] [place] [facility] [address] [id number] [place] [address] Nov, [facility] [place] [facility] [address] [id number] [place] [address] Oct, [facility] [place] [facility] [address] [id number] [place] [address] Sep, [facility] [place] [facility] [address] [id number] [place] [address] Sep, [facility] [place] [facility] [address] [id number] [place] [address] Aug, [facility] [place] [facility] [address] [id number] [place] [address] Aug, [facility] [place] [facility] [address] [id number] [place] [address] Aug, [facility] [place] [facility] [id number], [place] [address] Aug, [facility] [id number], [place] [address] Jul, [facility] [id number], [place] [address] May, [facility] [id number], [place] [address] Jan, [facility] [id number] [place] [address] Nov, [facility] [id number] [place] [address] Apr, [facility] [id number], [place] [address] Dec, [facility] [id number], [place] [address] Nov, IMMUNIZATIONS No Known Immunizations SOCIAL HISTORY Never Assessed REASON FOR VISIT CCM note PLAN OF CARE VITAL SIGNS MEDICATIONS Unknown Medications RESULTS No Results PROCEDURES No Known procedures INSTRUCTIONS MEDICATIONS ADMINISTERED No Known Medications MEDICAL (GENERAL) HISTORY Type Description Date Medical History Cardiovascular jwctvmjz-ITX-Mjcadqbg, non-obstructive per (01/2011) Dr. Mendoza Medical History Stress test 03/07/13-Dr. Kelly Dietrich normal Medical History Hypertension Medical History Asthma Medical History Gastrointestinal Disorder--IBS, GERD, Hx of fatty liver Medical History Hernia 1979 Medical History Cervical dysplasia 02/16-Pap LGSIL/[place]-mild dysplasia Medical History Hyperlipidemia Medical History Rheumatoid [...]
--- OUTSIDE RECORDS SUMMARY | 2019-05-22 07:55 | XMS REPORT ---
Author Author LORI SNOWDEN Organization [facility] Address [address] [place] [address] Care Team Providers Care Level Vial Inspector Name Role Phone LORI SNOWDEN Unavailable PROBLEMS Type Condition ICD9-CM Code QHO56-OY Code Onset Dates Condition Status SNOMED Code Problem ADHD (attention deficit hyperactivity disorder), combined type F90.2 Active 99578155 Problem Generalized anxiety disorder F41.1 Active 62784517 Problem Asthma J45.909 Active 251605599 Problem Dysthymic disorder F34.1 Active 91315549 Problem Hypertension I10 Active 26313096 Problem Sleep apnea in adult G47.30 Active 57084293 Problem Chronic pain syndrome G89.4 Active 552055429 Problem Rheumatoid arthritis involving multiple sites, unspecified rheumatoid factor presence M06.9 Active 658441250 Problem Anxiety F41.9 Active 76338948 Problem Gastroesophageal reflux disease with esophagitis K21.0 Active 861252595 Problem Primary insomnia F51.01 Active 7763755 Problem Chronic obstructive pulmonary disease, unspecified COPD type J44.9 Active 07746403 Problem Arteriosclerotic coronary artery disease I25.10 Active 40353939 Problem Weight gain R63.5 Active 0123824 Problem Rheumatoid arthritis M06.9 Active 96752374 Problem Panic attacks F41.0 Active 547353188 Problem Irritable bowel syndrome with diarrhea K58.0 Active 360478365 Problem Seasonal allergies J30.2 Active 485092716 Problem Mild episode of recurrent major depressive disorder F33.0 Active 452072531 Problem Neuropathy G62.9 Active 984124416 Problem Other insomnia G47.09 Active 645008878 Problem Mixed hyperlipidemia E78.2 Active 851538315 Problem Hyperinsulinemia E16.1 Active 77889906 Problem Other jail (current) drug therapy Z79.899 Active 952572436 Problem Cerebrovascular accident (CVA), unspecified mechanism I63.9 Active 740346700 Problem Chronic obstructive pulmonary disease, unspecified J44.9 Active 95582365530954571 Problem Obstructive sleep apnea G47.33 Active 28481489 ALLERGIES No Information ENCOUNTERS Encounter Location Date Diagnosis [facility] [id number] [place] [address] Jul, [place] [id number] [place] [address] May, Primary insomnia F51.01 [facility] [place] [id number] [place] [address] May, Mild episode of recurrent major depressive disorder F33.0 [facility] [id number] [place] [address] May, [facility] [id number] [place] [address] May, Chronic obstructive pulmonary disease, unspecified COPD type J44.9 ; Primary insomnia F51.01 ; Fatigue, unspecified type R53.83 and Weight gain R63.5 [facility] [id number] [place] [address] May, Thrush B37.0 [place] [id number] [place] [address] May, Mild episode of recurrent major depressive disorder F33.0 and Generalized anxiety disorder F41.1 [facility] [id number] [place] [address] May, Thrush B37.0 [place] [id number] [place] [address] Apr, Cough R05 [facility] [id number] [place] [address] Mar, Mild episode of recurrent major depressive disorder F33.0 [place] [id number] [place] [address] Mar, Mild episode of recurrent major depressive disorder F33.0 and Generalized anxiety disorder F41.1 [facility] [id number] [place] [address] Mar, Seasonal allergies J30.2 [facility] [id number] [place] [address] Mar, Seasonal allergies J30.2 [facility] [id number] [place] [address] February, Generalized anxiety disorder F41.1 [facility] [id number] [place] [address] February, Cough R05 and Seasonal allergies J30.2 [facility] [address] [address] February, Generalized anxiety disorder F41.1 and Mild episode of recurrent major depressive disorder F33.0 [facility] [address] [address] February, 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 ; Anxiety F41.9 ; Panic attacks F41.0 and Irritable bowel syndrome with diarrhea K58.0 [facility] [address] [address] February, [facility] [id number] [place] [address] Jan, Mixed hyperlipidemia E78.2 [facility] [id number] [place] [address] Jan, [facility] [id number] [place] [address] Jan, [facility] [address] [address] Jan, [facility] [id number] [place] [address] Jan, [facility] [address] [address] Dec, [facility] [id number] [place] [address] Dec, [facility] [id number] [place] [address] Dec, [facility] [id number] [place] [address] Nov, Dysthymic disorder F34.1 [facility] [id number] [place] [address] Oct, [facility] [id number] [place] [address] Oct, [facility] [id number] [place] [address] Oct, [facility] [id number] [place] [address] Oct, Diarrhea, unspecified type R19.7 and Dysuria R30.0 [facility] [id number] [place] [address] Oct, [facility] [id number] [place] [address] Sep, [facility] [id number] [place] [address] Sep, [facility] [id number] [place] [address] Sep, Anxiety F41.9 [facility] [id number] [place] [address] Sep, Cerebrovascular accident (CVA), unspecified mechanism I63.9 ; Mixed hyperlipidemia E78.2 ; Gastroesophageal reflux disease with esophagitis K21.0 and Anxiety F41.9 [facility] [id number] [place] [address] Sep, [facility] [address] [address] Aug, Chronic obstructive pulmonary disease, unspecified J44.9 ; Asthma J45.909 ; Nausea R11.0 ; Dysthymic disorder F34.1 ; Cerebrovascular accident (CVA), unspecified mechanism I63.9 and Rheumatoid arthritis M06.9 [place] [address] [address] Aug, Nausea R11.0 ; Encounter for immunization Z23 ; Sleep apnea in adult G47.30 ; Rheumatoid arthritis involving multiple sites, unspecified rheumatoid factor presence M06.9 ; Generalized anxiety disorder F41.1 ; Dysthymic disorder F34.1 and Asthma J45.909 [place] [address] [address] Jul, [address] [address] May, ADHD (attention deficit hyperactivity disorder), combined type F90.2 ; Generalized anxiety disorder F41.1 and Persistent depressive disorder F34.1 [place] [address] [address] May, Cerebrovascular accident (CVA), unspecified mechanism I63.9 [place] [address] [address] Apr, Mixed hyperlipidemia E78.2 and Cerebrovascular accident (CVA), unspecified mechanism I63.9 [place] [address] [address] Apr, Generalized anxiety disorder F41.[address] [address] Apr, Bronchitis J40 and Tobacco use Z72.0 [place] [address] [address] Apr, Mixed hyperlipidemia E78.2 [place] [address] [place] [address] Apr, 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 [place] [id number] [place] [address] Apr, [facility] [id number] [place] [address] Apr, Generalized anxiety disorder F41.1 [place] [address] [address] Apr, Obstructive sleep apnea G47.33 and Hyperinsulinemia E16.1 [place] [address] [address] Apr, ADHD (attention deficit hyperactivity disorder), combined type F90.2 ; Generalized anxiety disorder F41.1 and Persistent depressive disorder F34.1 [place] [id number] [place] [address] Mar, [place] [address] [address] Mar, Generalized anxiety disorder F41.1 [place] [address] [address] Mar, Tarsal tunnel syndrome of both lower extremities G57.53 [place] [id number] [place] [address] February, [place] [id number] [place] [address] February, [facility] [id number] [place] [address] February, Asthma J45.909 [place] [id number] [place] [address] February, Generalized anxiety disorder F41.1 [facility] [id number] [place] [address] February, Hypoxemia R09.02 ; Hyperglycemia R73.9 ; Rheumatoid arthritis M06.9 and Generalized anxiety disorder F41.1 [place] [id number] [place] [address] February, [place] [id number] [place] [address] Jan, Chronic obstructive pulmonary disease, unspecified J44.9 [place] [address] [address] Jan, Chronic pain syndrome G89.4 [place] [address] [address] Jan, Hypoxemia R09.02 [place] [address] [address] Jan, [place] [address] [address] Jan, Chronic obstructive pulmonary disease, unspecified J44.9 ; Hypoxemia R09.02 ; Other insomnia G47.09 and Left anterior shoulder pain M25.512 [place] [address] [address] Jan, Numbness in feet R20.0 and Neuropathy G62.9 [place] [id number] [place] [address] Jan, [place] [address] [address] Dec, Acute pain of left shoulder M25.512 [place] [id number] [place] [address] Dec, Acute pain of left shoulder M25.512 [place] [id number] [place] [address] Dec, Generalized anxiety disorder F41.1 [place] [id number] [place] [address] Dec, Generalized anxiety disorder F41.1 [facility] [address] [place] [address] Nov, ADHD (attention deficit hyperactivity disorder), combined type F90.2 ; Generalized anxiety disorder F41.1 and Persistent depressive disorder F34.1 [facility] [id number] [place] [address] Nov, Acute pain of left shoulder M25.512 [facility] [id number] [place] [address] Nov, ADHD (attention deficit hyperactivity disorder), combined type F90.2 ; Generalized anxiety disorder F41.1 and Persistent depressive disorder F34.1 [facility] [id number] [place] [address] Nov, Chronic pain syndrome G89.4 [facility] [id number] [place] [address] Nov, Chronic pain syndrome G89.4 [facility] [id number] [place] [address] 08 Nov, 2016 Acute pain of left shoulder M25.512 [facility] [id number] [place] [address] 07 Nov, 2016 Generalized anxiety disorder F41.1 [facility] [id number] [place] [address] Nov, Acute pain of left shoulder M25.512 [facility] [id number] [place] [address] Nov, ADHD (attention deficit hyperactivity disorder), combined type F90.2 ; Generalized anxiety disorder F41.1 and Persistent depressive disorder F34.1 [facility] [address] [place] [address] Nov, Acute pain of left shoulder M25.512 ; Generalized anxiety disorder F41.1 ; Chronic pain syndrome G89.4 ; Hyperinsulinemia E16.1 ; Pain of left foot M79.672 and Pain in right foot M79.671 [place] [id number] [place] [address] Oct, ADHD (attention deficit hyperactivity disorder), combined type F90.2 ; Generalized anxiety disorder F41.1 and Dysthymic disorder F34.1 [place] [address] [address] Sep, [place] [address] [address] Sep, [address] [address] Sep, Routine gynecological examination V72.31 ; Cervical cancer screening Z12.4 ; Breast cancer screening Z12.39 ; Colon cancer screening Z12.11 ; Hypokalemia E87.6 ; Herpes simplex type 1 infection B00.9 and Abscess of right axilla L02.411 [place] [id number] [place] [address] Sep, [address] [address] Sep, ADHD (attention deficit hyperactivity disorder), combined type F90.2 ; Generalized anxiety disorder F41.1 and Dysthymic disorder F34.1 [place] [id number] [place] [address] Aug, [place] [id number] [place] [address] Aug, [place] [id number] [place] [address] Aug, Generalized anxiety disorder F41.1 [place] [id number] [place] [address] Aug, ADHD (attention deficit hyperactivity disorder), combined type F90.2 ; Generalized anxiety disorder F41.1 and Dysthymic disorder F34.1 [place] [id number] [place] [address] Jul, Chronic pain syndrome G89.4 ; Hypertension I10 ; Hypokalemia E87.6 ; Asthma J45.909 and Nausea R11.0 [facility] [place] [id number] [place] [address] Jul, [place] [address] [address] Jul, Asthma J45.909 [place] [address] [address] Jul, ADHD (attention deficit hyperactivity disorder), combined type F90.2 ; Generalized anxiety disorder F41.1 and Dysthymic disorder F34.1 [place] [id number] [place] [address] Jul, [place] [address] [address] Jul, Hypertension I10 ; Arteriosclerotic coronary artery disease I25.10 ; Mixed hyperlipidemia E78.2 ; 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 and Hyperglycemia R73.9 [facility] [place] [id number] [place] [address] 16 Jun, 2016 Hypokalemia E87.6 and Hyperglycemia R73.9 [facility] [id number] [place] [address] 14 Jun, 2016 [place] [id number] [place] [address] 13 Jun, 2016 Abnormal kidney function N28.9 [place] [id number] [place] [address] 09 Jun, 2016 [place] [id number] [place] [address] Jun, ADHD (attention deficit hyperactivity disorder), combined type F90.2 ; Generalized anxiety disorder F41.1 and Dysthymic disorder F34.1 [place] [address] [address] Jun, Generalized anxiety disorder F41.1 and Dysthymic disorder F34.1 [place] [address] [address] Jun, Hypokalemia E87.6 [place] [address] [address] May, Hypokalemia E87.6 ; Vertigo R42 and Hyperinsulinemia E16.1 [place] [address] [address] May, [place] [address] [address] May, Abnormal kidney function N28.9 ; Hyperinsulinemia E16.1 and Nausea R11.0 [place] [address] [address] May, Hypokalemia E87.6 ; Nausea R11.0 ; Epigastric pain R10.13 ; Dehydration E86.0 ; Diaphoresis R61 and Right arm pain M79.601 [place] [address] [address] May, [place] [address] [address] May, Hypokalemia E87.6 [place] [address] [address] May, Hypokalemia E87.6 [place] [address] [address] Apr, [place] [address] [address] Apr, ADHD (attention deficit hyperactivity disorder), combined type F90.2 ; Generalized anxiety disorder F41.1 and Dysthymic disorder F34.1 [place] [address] [place] [address] Apr, Right arm pain M79.601 and Hyperinsulinemia E16.1 [place] [address] [place] [address] Mar, [place] [id number] [place] [address] Mar, [place] [id number] [place] [address] Mar, Hyperinsulinemia E16.1 ; Hyperlipidemia, unspecified hyperlipidemia type E78.5 ; Central venous catheter in place Z78.9 ; Generalized anxiety disorder F41.1 and Urinary tract infection, site not specified N39.0 [place] [id number] [place] [address] Mar, ADHD (attention deficit hyperactivity disorder), combined type F90.2 ; Generalized anxiety disorder F41.1 and Dysthymic disorder F34.1 [place] [id number] [place] [address] February, ADHD (attention deficit hyperactivity disorder), combined type F90.2 ; Generalized anxiety disorder F41.1 and Dysthymic disorder F34.1 [place] [address] [place] [address] February, [facility] [id number] [place] [address] February, [place] [id number] [place] [address] February, Hypertension I10 and Weight gain R63.5 [place] [address] [place] [address] February, Major depressive disorder, recurrent, moderate F33.1 and Generalized anxiety disorder F41.1 [facility] [place] [id number] [address] February, ADHD (attention deficit hyperactivity disorder), combined type F90.2 ; Generalized anxiety disorder F41.1 and Dysthymic disorder F34.1 [facility] [address] [place] [address] February, [facility] [id number] [place] [address] February, Asthma J45.909 ; Weight gain R63.5 ; Hypertension I10 ; Rheumatoid arthritis M06.9 and Chronic pain syndrome G89.4 [facility] [id number] [place] [address] Jan, ADHD (attention deficit hyperactivity disorder), combined type F90.2 ; Generalized anxiety disorder F41.1 and Dysthymic disorder F34.1 [facility] [id number] [place] [address] Dec, ADHD (attention deficit hyperactivity disorder), combined type F90.2 ; Generalized anxiety disorder F41.1 and Dysthymic disorder F34.1 [facility] [id number] [place] [address] Dec, [facility] [id number] [place] [address] Nov, [facility] [id number] [place] [address] Nov, [facility] [id number] [place] [address] Nov, [facility] [id number] [place] [address] Nov, [facility] [id number] [place] [address] Oct, [facility] [id number] [place] [address] Oct, [facility] [address] [address] Oct, [facility] [address] [address] Sep, [facility] [address] [address] Sep, [facility] [id number] [place] [address] Sep, Agoraphobia with panic disorder F40.01 ; Attention-deficit hyperactivity disorder, combined type F90.2 and Dysthymic disorder F34.1 [facility] [address] [place] [address] Aug, [facility] [address] [address] Aug, [facility] [id number] [address] Aug, [facility] [address] [address] Aug, Dysthymic disorder F34.1 ; Generalized anxiety disorder F41.1 and ADHD (attention deficit hyperactivity disorder), combined type F90.2 [facility] [address] [address] Aug, ADHD (attention deficit hyperactivity disorder), combined type F90.2 ; Generalized anxiety disorder F41.1 and Dysthymic disorder F34.1 [facility] [address] [address] Jul, Urinary tract infection, site not specified N39.0 ; Hypotension, unspecified I95.9 and Breast cancer screening Z12.39 [facility] [address], [place] [address] Jul, [facility] [address] [place] [id number] [place] [address] Jul, [facility] [id number] [place] [address] Jul, Urinary tract infection, site not specified N39.0 ; Nausea R11.0 ; Gastroenteritis K52.9 ; Renal failure N19 and Other hypotension I95.89 [facility] [id number] [place] [address] Jul, [facility] [address] [address] Jul, [facility] [address] [address] Jul, [place] [address] [address] Jun, [place] [address] [place] [id number] [place] [address] Jun, Major depression in partial remission 296.25 ; Generalized anxiety disorder 300.02 and ADHD, predominantly inattentive type 314.01 [place] [id number] [place] [address] May, [place] [address] [address] Apr, Major depressive disorder, recurrent episode, severe, without mention of psychotic behavior 296.33 ; Agoraphobia with panic disorder 300.21 and Generalized anxiety disorder 300.02 [place] [address] [place] [id number] [place] [address] Apr, ADHD (attention deficit hyperactivity disorder), combined type 314.01 ; Generalized anxiety disorder 300.02 and Dysthymic disorder 300.[address] [address] Apr, CAD (coronary artery disease) 414.00 ; HTN (hypertension) 401.9 and Tobacco use 305.[address] [address] Apr, [facility] [id number] [place] [address] Mar, ADHD (attention deficit hyperactivity disorder), combined type 314.01 ; Generalized anxiety disorder 300.02 ; Dysthymic disorder 300.4 ; No condition on [address] V71.09 ; Rheumatoid arthritis 714.0 ; Incontinence 788.30 ; Irritable bowel syndrome 564.1 ; Osteoporosis 733.00 and Chronic pain 338.29 [facility] [id number] [place] [address] Mar, Agoraphobia with panic disorder 300.21 and Major depressive disorder, recurrent episode, moderate 296.32 [facility] [id number] [place] [address] Mar, [facility] [id number] [place] [address] February, [facility] [id number] [place] [address] February, Agoraphobia with panic disorder 300.21 and Major depressive disorder, recurrent episode, moderate 296.32 [facility] [id number] [place] [address] February, [facility] [id number] [place] [address] Jan, [facility] [id number] [place] [address] Jan, [facility] [id number] [place] [address] Dec, [facility] [id number] [place] [address] Dec, [facility] [id number] [place] [address] Dec, [facility] [id number] [place] [address] Dec, [facility] [place] [facility] [address] [id number] [place] [address] Dec, [facility] [place] [facility] [address] [id number] [place] [address] Dec, [facility] [place] [facility] [address] [facility] [id number] [place] [address] Nov, [facility] [place] [facility] [address] [id number] [place] [address] Nov, [facility] [place] [facility] [address] [id number] [place] [address] Nov, [facility] [place] [facility] [address] [facility] [id number] [place] [address] Nov, [facility] [place] [facility] [address] [facility] [id number] [place] [address] Nov, [facility] [place] [facility] [address] [facility] [id number] [place] [address] Nov, [facility] [place] [facility] [address] [facility] [id number] [place] [address] Nov, [facility] [place] [facility] [address] [facility] [id number] [place] [address] Nov, [facility] [place] [facility] [address] [facility] [id number] [place] [address] Oct, [facility] [place] [facility] [address] [facility] [id number], [place] [address] Oct, [facility] [place] [facility] [address] [facility] [id number], [place] [address] Oct, [facility] [place] [facility] [address] [facility] [id number], [place] [address] Oct, [facility] [place] [facility] [address] [facility] [id number], [place] [address] Oct, [facility] [place] [facility] [address] [id number] [place] [address] Oct, [facility] [place] [facility] [address] [id number] [place] [address] Sep, [facility] [place] [facility] [address] [id number] [place] [address] Sep, [facility] [place] [facility] [address] [id number] [place] [address] Sep, [facility] [place] [facility] [address] [id number] [place] [address] Sep, [facility] [place] [facility] [address] [id number] [place] [address] Sep, [facility] [place] [facility] [address] [id number] [place] [address] Sep, [facility] [place] [facility] [address] [id number] [place] [address] Sep, [facility] [place] [facility] [address] [id number] [place] [address] Aug, [facility] [place] [facility] [address] [id number] [place] [address] Aug, [facility] [place] [facility] [address] [id number] [place] [address] Aug, [facility] [place] [facility] [address] [id number] [place] [address] Aug, [facility] [place] [facility] [address] [id number] [place] [address] Aug, [facility] [place] [facility] [address] [id number] [place] [address] Aug, [facility] [place] [facility] [address] [id number] [place] [address] 17 Jul, 2014 [facility] [place] [facility] [address] [id number] [place] [address] Jul, [facility] [place] [facility] [address] [id number] [place] [address] Jul, [facility] [place] [facility] [address] [id number] [place] [address] Jul, [facility] [place] [facility] [address] [id number] [place] [address] Jul, [facility] [place] [facility] [address] [id number] [place] [address] Jul, [facility] [place] [facility] [address] [id number] [place] [address] Jun, [facility] [place] [facility] [address] [id number] [place] [address] Jun, [facility] [place] [facility] [address] [id number] [place] [address] May, [facility] [place] [facility] [address] [id number] [place] [address] May, [facility] [place] [facility] [address] [id number] [place] [address] Apr, [facility] [place] [facility] [address] [id number] [place] [address] Apr, [facility] [place] [facility] [address] [id number], [place] [address] Apr, [facility] [place] [facility] [address] [id number], [place] [address] Apr, [facility] [place] [facility] [address] [id number] [place] [address] Mar, [facility] [place] [facility] [address] [id number], [place] [address] Mar, [facility] [place] [facility] [address] [id number] [place] [address] Mar, [facility] [place] [facility] [address] [id number] [place] [address] Mar, [facility] [place] [facility] [address] [id number] [place] [address] February, [facility] [place] [facility] [address] [id number] [place] [address] February, [facility] [place] [facility] [address] [id number] [place] [address] February, [facility] [place] [facility] [address] [id number] [place] [address] February, [facility] [place] [facility] [address] [id number] [place] [address] February, [facility] [place] [facility] [address] [id number] [place] [address] February, [facility] [place] [facility] [address] [id number] [place] [address] Jan, [facility] [place] [facility] [address] [id number] [place] [address] Jan, [facility] [place] [facility] [address] [id number] [place] [address] Dec, [facility] [place] [facility] [address] [id number] [place] [address] Dec, [facility] [place] [facility] [address] [id number] [place] [address] Nov, [facility] [place] [facility] [address] [id number] [place] [address] Nov, [facility] [place] [facility] [address] [id number] [place] [address] Oct, [facility] [place] [facility] [address] [id number] [place] [address] Oct, [facility] [place] [facility] [address] [id number] [place] [address] Oct, [facility] [address] [id number] [place] [address] Oct, [facility] [place] [facility] [address] [id number] [place] [address] Sep, [facility] [place] [facility] [address] [id number] [place] [address] Sep, [facility] [place] [facility] [address] [id number] [place] [address] Sep, [facility] [address] [id number] [place] [address] Sep, [facility] [place] [facility] [address] [id number] [place] [address] Sep, [facility] [place] [facility] [address] [facility] [id number] [place] [address] Sep, [facility] [place] [facility] [address] [id number] [place] [address] Sep, [facility] [place] [facility] [address] [id number] [place] [address] Sep, [facility] [place] [facility] [address] [id number], [place] [address] Aug, [facility] [place] [facility] [address] [id number], [place] [address] Aug, [facility] [place] [facility] [address] [id number], [place] [address] Aug, [facility] [place] [facility] [address] [id number], [place] [address] Aug, [facility] [place] [facility] [address] [id number], [place] [address] Aug, [facility] [place] [facility] [address] [facility] [id number], [place] [address] Aug, [facility] [place] [facility] [address] [id number], [place] [address] Aug, [facility] [address] [id number] [place] [address] Aug, [facility] [place] [facility] [address] [id number] [place] [address] Aug, [facility] [place] [facility] [address] [id number] [place] [address] Jul, [facility] [place] [facility] [address] [id number] [place] [address] Jun, [facility] [place] [facility] [address] [id number] [place] [address] May, [facility] [place] [facility] [address] [id number] [place] [address] May, [facility] [address] [id number] [place] [address] May, [facility] [place] [facility] [address] [id number] [place] [address] Apr, [facility] [place] [facility] [address] [id number] [place] [address] Mar, [facility] [place] [facility] [address] [id number] [place] [address] February, [facility] [place] [facility] [address] [id number], [place] [address] Oct, [facility] [place] [facility] [address] [id number], [place] [address] Oct, [facility] [place] [facility] [address] [id number] [place] [address] Oct, [facility] [place] [facility] [address] [id number] [place] [address] Oct, [facility] [place] [facility] [address] [id number] [place] [address] Oct, [facility] [place] [facility] [address] [id number] [place] [address] Oct, [facility] [place] [facility] [address] [id number] [place] [address] Sep, [facility] [place] [facility] [address] [id number] [place] [address] Sep, [facility] [place] [facility] [address] [id number] [place] [address] Aug, [facility] [place] [facility] [address] [id number] [place] [address] Aug, [facility] [place] [facility] [address] [id number] [place] [address] Jul, [facility] [place] [facility] [address] [id number] [place] [address] Jul, [facility] [place] [facility] [address] [id number] [place] [address] Jul, [facility] [place] [facility] [address] [id number] [place] [address] Jul, [facility] [place] [facility] [address] [id number] [place] [address] Jul, [facility] [place] [facility] [address] [id number] [place] [address] Jul, [facility] [place] [facility] [address] [id number] [place] [address] Jul, [facility] [place] [facility] [address] [id number] [place] [address] Jul, [facility] [place] [facility] [address] [id number] [place] [address] 16 Jun, 2012 [facility] [place] [facility] [address] [id number] [place] [address] Jun, [facility] [place] [facility] [address] [id number] [place] [address] May, [facility] [place] [facility] [address] [id number] [place] [address] Apr, [facility] [place] [facility] [address] [id number] [place] [address] Mar, [facility] [place] [facility] [address] [id number] [place] [address] Mar, [facility] [place] [facility] [address] [id number] [place] [address] Mar, [facility] [place] [facility] [address] [id number] [place] [address] Mar, [facility] [place] [facility] [address] [id number] [place] [address] Jan, [facility] [place] [facility] [address] [id number] [place] [address] Nov, [facility] [place] [facility] [address] [id number] [place] [address] Nov, [facility] [place] [facility] [address] [id number] [place] [address] Nov, [facility] [place] [facility] [address] [id number] [place] [address] Oct, [facility] [place] [facility] [address] [id number] [place] [address] Sep, [facility] [place] [facility] [address] [id number] [place] [address] Sep, [facility] [place] [facility] [address] [id number] [place] [address] Aug, [facility] [place] [facility] [address] [id number] [place] [address] Aug, [facility] [place] [facility] [address] [id number] [place] [address] Aug, [facility] [place] [facility] [id number] [address] Aug, [facility] [id number] [address] Jul, [facility] [address] [address] May, [facility] [address] [address] Jan, [facility] [id number] [place] [address] Nov, [facility] [id number] [place] [address] Apr, [facility] [address] [id number] [address] Dec, [facility] [id number] [place] [address] Nov, IMMUNIZATIONS No Known Immunizations SOCIAL HISTORY Never Assessed REASON FOR VISIT Rx request PLAN OF CARE VITAL SIGNS MEDICATIONS Medication Instructions Dosage Frequency Start Date End Date Duration Status Nystatin 188592 UNIT/ML Mouth/Throat swish and swallow Four times a day 5 ml 6h May, May, 10 days Active RESULTS No Results PROCEDURES No Known procedures INSTRUCTIONS MEDICATIONS ADMINISTERED No Known Medications MEDICAL (GENERAL) HISTORY Type Description Date Medical History Cardiovascular xmhravwo-ZXT-[facility], non-obstructive per (01/2011) Dr. Mendoza Medical History Stress test 03/07/13-Dr. Kelly Dietrich normal Medical History Hypertension Medical History Asthma Medical History Gastrointestinal Disorder--IBS, GERD, Hx of fatty liver Medical History Hernia 1979 Medical History Cervical dysplasia 02/16-Pap LGSIL/[place]-mild dysplasia Medical History Hyperlipidemia Medical History Rheumatoid [...]
--- OUTSIDE RECORDS SUMMARY | 2019-05-22 07:56 | XMS REPORT ---
Author Author LORI SNOWDEN Organization [facility] Address [address] [place] [address] Care Team Providers Care Customer Equipment Engineer Name Role Phone LORI SNOWDEN Unavailable PROBLEMS Type Condition ICD9-CM Code ICK09-LR Code Onset Dates Condition Status SNOMED Code Problem ADHD (attention deficit hyperactivity disorder), combined type F90.2 Active 49575592 Problem Generalized anxiety disorder F41.1 Active 36639121 Problem Asthma J45.909 Active 347670504 Problem Dysthymic disorder F34.1 Active 05867353 Problem Hypertension I10 Active 53103813 Problem Sleep apnea in adult G47.30 Active 55287991 Problem Chronic pain syndrome G89.4 Active 391391928 Problem Rheumatoid arthritis involving multiple sites, unspecified rheumatoid factor presence M06.9 Active 809417721 Problem Anxiety F41.9 Active 53144194 Problem Gastroesophageal reflux disease with esophagitis K21.0 Active 284517761 Problem Primary insomnia F51.01 Active 2333732 Problem Chronic obstructive pulmonary disease, unspecified COPD type J44.9 Active 68523037 Problem Arteriosclerotic coronary artery disease I25.10 Active 75212868 Problem Weight gain R63.5 Active 4254821 Problem Rheumatoid arthritis M06.9 Active 52171671 Problem Panic attacks F41.0 Active 849990560 Problem Irritable bowel syndrome with diarrhea K58.0 Active 113797767 Problem Seasonal allergies J30.2 Active 331969641 Problem Mild episode of recurrent major depressive disorder F33.0 Active 147901091 Problem Neuropathy G62.9 Active 865184546 Problem Other insomnia G47.09 Active 210402746 Problem Mixed hyperlipidemia E78.2 Active 979191200 Problem Hyperinsulinemia E16.1 Active 44659316 Problem Other longterm (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 Z79.899 Active 468022842 Problem Cerebrovascular accident (CVA), unspecified mechanism I63.9 Active 069095140 Problem Chronic obstructive pulmonary disease, unspecified J44.9 Active [id number] Problem Obstructive sleep apnea G47.33 Active 28606385 ALLERGIES No Information ENCOUNTERS Encounter Location Date Diagnosis [facility] [id number] [place] [address] Jul, [facility] [id number] [place] [address] Jun, [facility] [address] [address] May, Primary insomnia F51.01 [facility] [address] [address] May, Mild episode of recurrent major depressive disorder F33.0 [facility] [id number] [place] [address] May, [facility] [id number] [place] [address] May, Chronic obstructive pulmonary disease, unspecified COPD type J44.9 ; Primary insomnia F51.01 ; Fatigue, unspecified type R53.83 and Weight gain R63.5 [facility] [id number] [place] [address] May, Thrush B37.0 [facility] [id number] [place] [address] May, Mild episode of recurrent major depressive disorder F33.0 and Generalized anxiety disorder F41.1 [facility] [id number] [place] [address] May, Thrush B37.0 [facility] [id number] [place] [address] Apr, Cough R05 [facility] [id number] [place] [address] Mar, Mild episode of recurrent major depressive disorder F33.0 [facility] [id number] [place] [address] Mar, Mild episode of recurrent major depressive disorder F33.0 and Generalized anxiety disorder F41.1 [facility] [id number] [place] [address] Mar, Seasonal allergies J30.2 [facility] [id number] [place] [address] Mar, Seasonal allergies J30.2 [facility] [address] [address] February, Generalized anxiety disorder F41.1 [facility] [id number] [place] [address] February, Cough R05 and Seasonal allergies J30.2 [facility] [id number] [place] [address] February, Generalized anxiety disorder F41.1 and Mild episode of recurrent major depressive disorder F33.0 [facility] [id number] [place] [address] February, Other longterm (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 Z79.899 ; Anxiety F41.9 ; Panic attacks F41.0 and Irritable bowel syndrome with diarrhea K58.0 [facility] [id number] [place] [address] February, [facility] [id number] [place] [address] Jan, Mixed hyperlipidemia E78.2 [facility] [id number] [place] [address] Jan, [facility] [id number] [place] [address] Jan, [facility] [id number] [place] [address] Jan, [facility] [address] [address] Jan, [facility] [address] [place] [address] Dec, [facility] [id number] [place] [address] Dec, [facility] [id number] [place] [address] Dec, [facility] [id number] [place] [address] Nov, Dysthymic disorder F34.1 [facility] [id number] [place] [address] Oct, [facility] [id number] [place] [address] Oct, [facility] [address] [address] Oct, [facility] [id number] [place] [address] Oct, Diarrhea, unspecified type R19.7 and Dysuria R30.0 [facility] [id number] [place] [address] Oct, [facility] [id number] [place] [address] Sep, [facility] [id number] [place] [address] Sep, [facility] [id number] [place] [address] Sep, Anxiety F41.9 [facility] [id number] [place] [address] Sep, Cerebrovascular accident (CVA), unspecified mechanism I63.9 ; Mixed hyperlipidemia E78.2 ; Gastroesophageal reflux disease with esophagitis K21.0 and Anxiety F41.9 [facility] [id number] [place] [address] Sep, [facility] [address] [address] Aug, Chronic obstructive pulmonary disease, unspecified J44.9 ; Asthma J45.909 ; Nausea R11.0 ; Dysthymic disorder F34.1 ; Cerebrovascular accident (CVA), unspecified mechanism I63.9 and Rheumatoid arthritis M06.9 [facility] [address] [address] Aug, Nausea R11.0 ; Encounter for immunization Z23 ; Sleep apnea in adult G47.30 ; Rheumatoid arthritis involving multiple sites, unspecified rheumatoid factor presence M06.9 ; Generalized anxiety disorder F41.1 ; Dysthymic disorder F34.1 and Asthma J45.909 [facility] [address] [address] Jul, [facility] [address] [address] May, ADHD (attention deficit hyperactivity disorder), combined type F90.2 ; Generalized anxiety disorder F41.1 and Persistent depressive disorder F34.1 [facility] [id number] [place] [address] May, Cerebrovascular accident (CVA), unspecified mechanism I63.9 [facility] [id number] [place] [address] Apr, Mixed hyperlipidemia E78.2 and Cerebrovascular accident (CVA), unspecified mechanism I63.9 [facility] [address] [address] Apr, Generalized anxiety disorder F41.1 [facility] [address] [address] Apr, Bronchitis J40 and Tobacco use Z72.[address] [address] Apr, Mixed hyperlipidemia E78.2 [facility] [id number] [place] [address] Apr, Other pump tender (current) drug therapy Z79.899 [facility] [id number] [place] [address] Apr, [facility] [address] [address] Apr, Generalized anxiety disorder F41.1 [facility] [id number] [place] [address] Apr, Obstructive sleep apnea G47.33 and Hyperinsulinemia E16.1 [facility] [id number] [place] [address] Apr, ADHD (attention deficit hyperactivity disorder), combined type F90.2 ; Generalized anxiety disorder F41.1 and Persistent depressive disorder F34.1 [facility] [id number] [place] [address] Mar, [facility] [address] [address] Mar, Generalized anxiety disorder F41.1 [facility] [id number] [place] [address] Mar, Tarsal tunnel syndrome of both lower extremities G57.53 [facility] [id number] [place] [address] February, [facility] [id number] [place] [address] February, [facility] [id number] [place] [address] February, Asthma J45.909 [facility] [id number] [place] [address] February, Generalized anxiety disorder F41.1 [facility] [id number] [place] [address] February, Hypoxemia R09.02 ; Hyperglycemia R73.9 ; Rheumatoid arthritis M06.9 and Generalized anxiety disorder F41.1 [facility] [id number] [place] [address] February, [facility] [address] [address] Jan, Chronic obstructive pulmonary disease, unspecified J44.9 [facility] [address] [address] Jan, Chronic pain syndrome G89.4 [facility] [address] [address] Jan, Hypoxemia R09.02 [facility] [address] [address] Jan, [facility] [address] [address] Jan, Chronic obstructive pulmonary disease, unspecified J44.9 ; Hypoxemia R09.02 ; Other insomnia G47.09 and Left anterior shoulder pain M25.512 [facility] [id number] [place] [address] Jan, Numbness in feet R20.0 and Neuropathy G62.9 [facility] [id number] [place] [address] Jan, [facility] [address] [address] Dec, Acute pain of left shoulder M25.512 [facility] [address] [address] Dec, Acute pain of left shoulder M25.512 [facility] [id number] [place] [address] Dec, Generalized anxiety disorder F41.1 [facility] [address] [place] [address] Dec, Generalized anxiety disorder F41.1 [facility] [id number] [place] [address] Nov, ADHD (attention deficit hyperactivity disorder), combined type F90.2 ; Generalized anxiety disorder F41.1 and Persistent depressive disorder F34.1 [facility] [id number] [place] [address] Nov, Acute pain of left shoulder M25.512 [facility] [id number] [place] [address] Nov, ADHD (attention deficit hyperactivity disorder), combined type F90.2 ; Generalized anxiety disorder F41.1 and Persistent depressive disorder F34.1 [facility] [id number] [place] [address] Nov, Chronic pain syndrome G89.4 [facility] [id number] [place] [address] Nov, Chronic pain syndrome G89.4 [facility] [id number] [place] [address] 08 Nov, 2016 Acute pain of left shoulder M25.512 [facility] [id number] [place] [address] Nov, Generalized anxiety disorder F41.1 [facility] [address] [place] [address] Nov, Acute pain of left shoulder M25.512 [facility] [id number] [place] [address] Nov, ADHD (attention deficit hyperactivity disorder), combined type F90.2 ; Generalized anxiety disorder F41.1 and Persistent depressive disorder F34.1 [facility] [address] [place] [address] Nov, Acute pain of left shoulder M25.512 ; Generalized anxiety disorder F41.1 ; Chronic pain syndrome G89.4 ; Hyperinsulinemia E16.1 ; Pain of left foot M79.672 and Pain in right foot M79.671 [facility] [id number] [place] [address] Oct, ADHD (attention deficit hyperactivity disorder), combined type F90.2 ; Generalized anxiety disorder F41.1 and Dysthymic disorder F34.1 [facility] [id number] [place] [address] Sep, [facility] [address] [address] Sep, [facility] [id number] [place] [address] Sep, Routine gynecological examination V72.31 ; Cervical cancer screening Z12.4 ; Breast cancer screening Z12.39 ; Colon cancer screening Z12.11 ; Hypokalemia E87.6 ; Herpes simplex type 1 infection B00.9 and Abscess of right axilla L02.411 [facility] [id number] [place] [address] Sep, [facility] [id number] [place] [address] Sep, ADHD (attention deficit hyperactivity disorder), combined type F90.2 ; Generalized anxiety disorder F41.1 and Dysthymic disorder F34.1 [facility] [address] [place] [address] Aug, [facility] [id number] [place] [address] Aug, [facility] [id number] [place] [address] Aug, Generalized anxiety disorder F41.1 [facility] [id number] [place] [address] Aug, ADHD (attention deficit hyperactivity disorder), combined type F90.2 ; Generalized anxiety disorder F41.1 and Dysthymic disorder F34.1 [facility] [id number] [place] [address] Jul, Chronic pain syndrome G89.4 ; Hypertension I10 ; Hypokalemia E87.6 ; Asthma J45.909 and Nausea R11.0 [facility] [address] [address] Jul, [facility] [address] [address] Jul, Asthma J45.909 [facility] [address] [address] Jul, ADHD (attention deficit hyperactivity disorder), combined type F90.2 ; Generalized anxiety disorder F41.1 and Dysthymic disorder F34.1 [facility] [address] [address] Jul, [address] [address] Jul, Hypertension I10 ; Arteriosclerotic coronary artery disease I25.10 ; Mixed hyperlipidemia E78.2 ; Other pump tender (current) drug therapy Z79.899 and Hyperglycemia R73.9 [facility] [id number] [place] [address] 16 Jun, 2016 Hypokalemia E87.6 and Hyperglycemia R73.9 [facility] [id number] [place] [address] 14 Jun, [address] [address] 13 Jun, 2016 Abnormal kidney function N28.9 [facility] [id number] [place] [address] 09 Jun, 2016 [place] [address] [place] [address] Jun, ADHD (attention deficit hyperactivity disorder), combined type F90.2 ; Generalized anxiety disorder F41.1 and Dysthymic disorder F34.1 [facility] [address] [address] Jun, Generalized anxiety disorder F41.1 and Dysthymic disorder F34.1 [facility] [address] [address] Jun, Hypokalemia E87.6 [facility] [address] [address] May, Hypokalemia E87.6 ; Vertigo R42 and Hyperinsulinemia E16.1 [facility] [address] [address] May, [facility] [address] [address] May, Abnormal kidney function N28.9 ; Hyperinsulinemia E16.1 and Nausea R11.0 [facility] [address] [address] May, Hypokalemia E87.6 ; Nausea R11.0 ; Epigastric pain R10.13 ; Dehydration E86.0 ; Diaphoresis R61 and Right arm pain M79.601 [facility] [id number] [place] [address] May, [facility] [address] [address] May, Hypokalemia E87.6 [facility] [address] [address] May, Hypokalemia E87.6 [facility] [id number] [place] [address] Apr, [facility] [address] [address] Apr, ADHD (attention deficit hyperactivity disorder), combined type F90.2 ; Generalized anxiety disorder F41.1 and Dysthymic disorder F34.1 [facility] [address] [place] [address] Apr, Right arm pain M79.601 and Hyperinsulinemia E16.1 [facility] [id number] [place] [address] Mar, [facility] [id number] [place] [address] Mar, [facility] [id number] [place] [address] Mar, Hyperinsulinemia E16.1 ; Hyperlipidemia, unspecified hyperlipidemia type E78.5 ; Central venous catheter in place Z78.9 ; Generalized anxiety disorder F41.1 and Urinary tract infection, site not specified N39.0 [facility] [id number] [place] [address] Mar, ADHD (attention deficit hyperactivity disorder), combined type F90.2 ; Generalized anxiety disorder F41.1 and Dysthymic disorder F34.1 [facility] [id number] [place] [address] February, ADHD (attention deficit hyperactivity disorder), combined type F90.2 ; Generalized anxiety disorder F41.1 and Dysthymic disorder F34.1 [facility] [address] [address] February, [facility] [id number] [place] [address] February, [facility] [id number] [place] [address] February, Hypertension I10 and Weight gain R63.5 [place] [id number] [place] [address] February, Major depressive disorder, recurrent, moderate F33.1 and Generalized anxiety disorder F41.1 [facility] [id number] [place] [address] February, ADHD (attention deficit hyperactivity disorder), combined type F90.2 ; Generalized anxiety disorder F41.1 and Dysthymic disorder F34.1 [facility] [id number] [place] [address] February, [facility] [id number] [place] [address] February, Asthma J45.909 ; Weight gain R63.5 ; Hypertension I10 ; Rheumatoid arthritis M06.9 and Chronic pain syndrome G89.4 [facility] [id number] [place] [address] Jan, ADHD (attention deficit hyperactivity disorder), combined type F90.2 ; Generalized anxiety disorder F41.1 and Dysthymic disorder F34.1 [facility] [id number] [place] [address] Dec, ADHD (attention deficit hyperactivity disorder), combined type F90.2 ; Generalized anxiety disorder F41.1 and Dysthymic disorder F34.1 [facility] [address] [place] [address] Dec, [facility] [id number] [place] [address] Nov, [facility] [id number] [place] [address] Nov, [facility] [id number] [place] [address] Nov, [facility] [id number] [place] [address] Nov, [facility] [id number] [place] [address] Oct, [facility] [address] [place] [address] Oct, [facility] [id number] [place] [address] Oct, [facility] [address] [address] Sep, [facility] [id number] [place] [address] Sep, [facility] [address] [place] [address] Sep, Agoraphobia with panic disorder F40.01 ; Attention-deficit hyperactivity disorder, combined type F90.2 and Dysthymic disorder F34.1 [facility] [address] [place] [address] Aug, [facility] [id number] [place] [address] Aug, [facility] [address] [place] [address] Aug, [facility] [address] [place] [address] Aug, Dysthymic disorder F34.1 ; Generalized anxiety disorder F41.1 and ADHD (attention deficit hyperactivity disorder), combined type F90.2 [facility] [address] [address] Aug, ADHD (attention deficit hyperactivity disorder), combined type F90.2 ; Generalized anxiety disorder F41.1 and Dysthymic disorder F34.1 [facility] [address] [place] [address] Jul, Urinary tract infection, site not specified N39.0 ; Hypotension, unspecified I95.9 and Breast cancer screening Z12.39 [facility] [address] [place] [address] Jul, [facility] [id number] [place] [address] Jul, [facility] [id number] [place] [address] Jul, Urinary tract infection, site not specified N39.0 ; Nausea R11.0 ; Gastroenteritis K52.9 ; Renal failure N19 and Other hypotension I95.89 [facility] [id number] [place] [address] Jul, [facility] [id number] [place] [address] Jul, [facility] [id number] [place] [address] Jul, [facility] [id number] [place] [id number] Jun, [facility] [id number] [place] [id number] Jun, Major depression in partial remission 296.25 ; Generalized anxiety disorder 300.02 and ADHD, predominantly inattentive type 314.01 [facility] [id number] [place] [id number] May, [facility] [id number] [place] [id number] Apr, Major depressive disorder, recurrent episode, severe, without mention of psychotic behavior 296.33 ; Agoraphobia with panic disorder 300.21 and Generalized anxiety disorder 300.02 [facility] [id number] [place] [address] Apr, ADHD (attention deficit hyperactivity disorder), combined type 314.01 ; Generalized anxiety disorder 300.02 and Dysthymic disorder 300.4 [facility] [id number] [place] [address] Apr, CAD (coronary artery disease) 414.00 ; HTN (hypertension) 401.9 and Tobacco use 305.1 [facility] [id number] [place] [address] Apr, [facility] [id number] [place] [address] Mar, ADHD (attention deficit hyperactivity disorder), combined type 314.01 ; Generalized anxiety disorder 300.02 ; Dysthymic disorder 300.4 ; No condition on Thorndike II V71.09 ; Rheumatoid arthritis 714.0 ; Incontinence 788.30 ; Irritable bowel syndrome 564.1 ; Osteoporosis 733.00 and Chronic pain 338.29 [facility] [id number] [place] [address] Mar, Agoraphobia with panic disorder 300.21 and Major depressive disorder, recurrent episode, moderate 296.32 [facility] [id number] [place] [address] Mar, [facility] [id number] [place] [address] February, [facility] [id number] [place] [address] February, Agoraphobia with panic disorder 300.21 and Major depressive disorder, recurrent episode, moderate 296.32 [facility] [id number] [place] [address] February, [facility] [id number] [place] [address] Jan, [facility] [id number] [place] [address] Jan, [facility] [id number] [place] [address] Dec, [facility] [id number] [place] [address] Dec, [facility] [id number] [place] [address] Dec, [facility] [place] [facility] [address] [id number] [place] [address] Dec, [facility] [place] [facility] [address] [id number] [place] [address] Dec, [facility] [place] [facility] [address] [facility] [id number] [place] [address] Dec, [facility] [place] [facility] [address] [id number] [place] [address] Nov, [facility] [place] [facility] [address] [id number] [place] [address] Nov, [facility] [place] [facility] [address] [facility] [id number] [place] [address] Nov, [facility] [place] [facility] [address] [facility] [id number] [place] [address] Nov, [facility] [place] [facility] [address] [facility] [id number] [place] [address] Nov, [facility] [place] [facility] [address] [facility] [id number] [place] [address] Nov, [facility] [place] [facility] [address] [facility] [id number] [place] [address] Nov, [facility] [place] [facility] [address] [facility] [id number] [place] [address] Nov, [facility] [place] [facility] [address] [facility] [id number], [place] [address] Oct, [facility] [place] [facility] [address] [id number] [place] [address] Oct, [facility] [place] [facility] [address] [facility] [id number], [place] [address] Oct, [facility] [place] [facility] [address] [facility] [id number], [place] [address] Oct, [facility] [place] [facility] [address] [id number] [place] [address] Oct, [facility] [place] [facility] [address] [id number] [place] [address] Oct, [facility] [place] [facility] [address] [id number] [place] [address] Sep, [facility] [place] [facility] [address] [id number] [place] [address] Sep, [facility] [place] [facility] [address] [id number] [place] [address] Sep, [facility] [place] [facility] [address] [id number] [place] [address] Sep, [facility] [place] [facility] [address] [id number] [place] [address] Sep, [facility] [place] [facility] [address] [id number] [place] [address] Sep, [facility] [place] [facility] [address] [id number] [place] [address] Sep, [facility] [place] [facility] [address] [id number] [place] [address] Aug, [facility] [place] [facility] [address] [id number] [place] [address] Aug, [facility] [place] [facility] [address] [id number] [place] [address] Aug, [facility] [place] [facility] [address] [id number] [place] [address] Aug, [facility] [place] [facility] [address] [id number] [place] [address] Aug, [facility] [place] [facility] [address] [id number] [place] [address] Aug, [facility] [place] [facility] [address] [id number] [place] [address] Jul, [facility] [place] [facility] [address] [id number] [place] [address] Jul, [facility] [place] [facility] [address] [id number] [place] [address] Jul, [facility] [place] [facility] [address] [id number] [place] [address] Jul, [facility] [place] [facility] [address] [id number] [place] [address] Jul, [facility] [place] [facility] [address] [id number] [place] [address] Jul, [facility] [place] [facility] [address] [id number] [place] [address] Jun, [facility] [place] [facility] [address] [id number] [place] [address] Jun, [facility] [place] [facility] [address] [id number] [place] [address] May, [facility] [place] [facility] [address] [id number] [place] [address] May, [facility] [place] [facility] [address] [id number] [place] [address] Apr, [facility] [place] [facility] [address] [id number], [place] [address] Apr, [facility] [place] [facility] [address] [id number], [place] [address] Apr, [facility] [place] [facility] [address] [id number] [place] [address] Apr, [facility] [place] [facility] [address] [id number], [place] [address] Mar, [facility] [place] [facility] [address] [id number] [place] [address] Mar, [facility] [place] [facility] [address] [id number] [place] [address] Mar, [facility] [place] [facility] [address] [id number] [place] [address] Mar, [facility] [place] [facility] [address] [id number] [place] [address] February, [facility] [place] [facility] [address] [id number] [place] [address] February, [facility] [place] [facility] [address] [id number] [place] [address] February, [facility] [place] [facility] [address] [id number] [place] [address] February, [facility] [place] [facility] [address] [id number] [place] [address] February, [facility] [place] [facility] [address] [id number] [place] [address] February, [facility] [place] [facility] [address] [id number] [place] [address] Jan, [facility] [place] [facility] [address] [id number] [place] [address] Jan, [facility] [place] [facility] [address] [id number] [place] [address] Dec, [facility] [place] [facility] [address] [id number] [place] [address] Dec, [facility] [place] [facility] [address] [id number] [place] [address] Nov, [facility] [place] [facility] [address] [id number] [place] [address] Nov, [facility] [place] [facility] [address] [id number] [place] [address] Oct, [facility] [place] [facility] [address] [id number] [place] [address] Oct, [facility] [address] [id number] [place] [address] Oct, [facility] [place] [facility] [address] [id number] [place] [address] Oct, [facility] [place] [facility] [address] [id number] [place] [address] Sep, [facility] [place] [facility] [address] [id number] [place] [address] Sep, [facility] [address] [id number] [place] [address] Sep, [facility] [place] [facility] [address] [id number] [place] [address] Sep, [facility] [address] [facility] [id number] [place] [address] Sep, [facility] [place] [facility] [address] [id number] [place] [address] Sep, [facility] [place] [facility] [address] [id number] [place] [address] Sep, [facility] [place] [facility] [address] [facility] [id number], [place] [address] Sep, [facility] [place] [facility] [address] [facility] [id number], [place] [address] Aug, [facility] [place] [facility] [address] [id number], [place] [address] Aug, [facility] [place] [facility] [address] [id number], [place] [address] Aug, [facility] [place] [facility] [address] [id number], [place] [address] Aug, [facility] [place] [facility] [address] [facility] [id number], [place] [address] Aug, [facility] [place] [facility] [address] [id number], [place] [address] Aug, [facility] [address] [id number] [place] [address] Aug, [facility] [place] [facility] [address] [id number] [place] [address] Aug, [facility] [place] [facility] [address] [id number] [place] [address] Aug, [facility] [place] [facility] [address] [id number] [place] [address] Jul, [facility] [place] [facility] [address] [id number] [place] [address] Jun, [facility] [place] [facility] [address] [id number] [place] [address] May, [facility] [place] [facility] [address] [id number] [place] [address] May, [facility] [place] [facility] [address] [id number] [place] [address] May, [facility] [place] [facility] [address] [id number] [place] [address] Apr, [facility] [place] [facility] [address] [facility] [id number] [place] [address] Mar, [facility] [place] [facility] [address] [id number] [place] [address] February, [facility] [place] [facility] [address] [id number], [place] [address] Oct, [facility] [place] [facility] [address] [id number] [place] [address] 16 Oct, 2012 [facility] [place] [facility] [address] [id number] [place] [address] Oct, [facility] [place] [facility] [address] [id number] [place] [address] Oct, [facility] [place] [facility] [address] [id number] [place] [address] Oct, [facility] [place] [facility] [address] [id number] [place] [address] Oct, [facility] [place] [facility] [address] [id number] [place] [address] Sep, [facility] [place] [facility] [address] [id number] [place] [address] Sep, [facility] [place] [facility] [address] [id number] [place] [address] Aug, [facility] [place] [facility] [address] [id number] [place] [address] Aug, [facility] [place] [facility] [address] [id number] [place] [address] Jul, [facility] [place] [facility] [address] [id number] [place] [address] Jul, [facility] [place] [facility] [address] [id number] [place] [address] Jul, [facility] [place] [facility] [address] [id number] [place] [address] Jul, [facility] [place] [facility] [address] [id number] [place] [address] Jul, [facility] [place] [facility] [address] [id number] [place] [address] Jul, [facility] [place] [facility] [address] [id number] [place] [address] Jul, [facility] [place] [facility] [address] [id number] [place] [address] Jul, [facility] [place] [facility] [address] [id number] [place] [address] 16 Jun, 2012 [facility] [place] [facility] [address] [id number] [place] [address] Jun, [facility] [place] [facility] [address] [id number] [place] [address] May, [facility] [place] [facility] [address] [id number] [place] [address] Apr, [facility] [place] [facility] [address] [id number] [place] [address] Mar, [facility] [place] [facility] [address] [id number] [place] [address] Mar, [facility] [place] [facility] [address] [id number] [place] [address] Mar, [facility] [place] [facility] [address] [id number] [place] [address] Mar, [facility] [place] [facility] [address] [id number] [place] [address] Jan, [facility] [place] [facility] [address] [id number] [place] [address] Nov, [facility] [place] [facility] [address] [id number] [place] [address] Nov, [facility] [place] [facility] [address] [id number] [place] [address] Nov, [facility] [place] [facility] [address] [id number] [place] [address] Oct, [facility] [place] [facility] [address] [id number] [place] [address] Sep, [facility] [place] [facility] [address] [id number] [place] [address] Sep, [facility] [place] [facility] [address] [id number] [place] [address] Aug, [facility] [place] [facility] [address] [id number] [place] [address] Aug, [facility] [place] [facility] [address] [id number], [place] [address] Aug, [facility] [address], [place] [address] Aug, [facility] [address], [place] [address] Jul, [facility] [address], [place] [address] May, [facility] [address], [place] [address] Jan, [facility] [id number] [place] [address] Nov, [facility] [address], [place] [address] Apr, [facility] [address], [place] [address] Dec, [facility] [id number], [place] [address] Nov, IMMUNIZATIONS No Known Immunizations SOCIAL HISTORY Never Assessed REASON FOR VISIT CCM note PLAN OF CARE VITAL SIGNS MEDICATIONS Medication Instructions Dosage Frequency Start Date End Date Duration Status Guaifenesin 400 mg Orally 3 times a day 1 tablet as needed 8h Apr, Apr, 07 days Active Tessalon Perles 100 mg Orally Three times a day 1 capsule as needed 8h Apr, Apr, 07 days Active RESULTS No Results PROCEDURES No Known procedures INSTRUCTIONS MEDICATIONS ADMINISTERED No Known Medications MEDICAL (GENERAL) HISTORY Type Description Date Medical History Cardiovascular ohovvjzt-GCQ-Egxbxrca, non-obstructive per (01/2011) Dr. Mendoza Medical History Stress test 03/07/13-Dr. Kelly Dietrich normal Medical History Hypertension Medical History Asthma Medical History Gastrointestinal Disorder--IBS, GERD, Hx of fatty liver Medical History Hernia 1979 Medical History Cervical dysplasia 02/16-Pap LGSIL/Tunica-mild dysplasia Medical History Hyperlipidemia Medical History Rheumatoid [...] Kidney injury 07/10/15-07/11/2015 Hospitalization History Symptomatic Hypokalemia/Nause-[facility]ia [facility] 05/13/16 Hospitalization History Stroke 05/03/2017 Hospitalization History stroke 08/24/2017--09/01/2017
--- NOTE | 2019-05-22 08:03 | Progress Note-Pre Operative ---
Pre-Operative Progress Note H&P Reviewed The H&P was reviewed, patient examined and no changes noted. Time Seen by Provider: 07:58 Date H&P Reviewed: May 22, 2019 Time H&P Reviewed: 07:57 Pre-Operative Diagnosis: Chronic Gastritis, Diarrhea Abdominal cramping CHELSI SANTOS DO May 22, 2019 08:03
[2019-05-22] MEDS ORDERED: PROPOFOL INJECTION 50 ML IV ONE ×2 (08:13→08:51)
[2019-05-22] MEDS ORDERED: MIDAZOLAM 2 MG/2 ML (VERSED) VIAL ONE (08:13)
--- NOTE | 2019-05-22 09:24 | Progress Note-Post Operative ---
Post-Operative Progess Note Surgeon (s)/Computer Artist (s) Surgeon CHELSI SANTOS DO Computer Artist: none Pre-Operative Diagnosis Chronic Gastritis, Diarrhea Abdominal cramping Post-Operative Diagnosis Chronic Gastritis Esophagitis Colon Polyp internal hemorrhoids Procedure & Operative Findings Date of Procedure 05/22/19 Procedure Performed/Findings EGD with Bx Colon with snare colon with cold bx Anesthesia Type IV sedation by OPERATION MANAGER Estimated Blood Loss Estimated blood loss (mL): scant Specimens/Packing Specimens Removed Antral bx Body of stomach bx GE jxn bx Rectal polyp Ascending colon polyp Descending colon polyp CHELSI SANTOS DO May 22, 2019 09:24
--- NOTE | 2019-05-22 09:26 | Endoscopy Discharge Instruct ---
Endo Procedure/Findings Findings 1.: Gastritis 2.: Polyp 3.: Internal Hemorrhoids Discharge Instructions - Activity: You might feel a little sleepy until tomorrow. This is due to the medicine you received to relax you. Until tomorrow, you should: NOT drive a car, operate machinery or power tools. NOT drink any alcoholic beverages. NOT make any important decisions or sign importortant papers. Do not return to work until tomorrow, unless otherwise instructed. Resume previous activities tomorrow. Diet: Start by taking liquids. If you tolerate liquids, advance to solid food. Make an appointment for one week Notify Physician - If you experience excessive bleeding, unusual abdominal pain, fever, or chest pain, contact your doctor immediately. Follow-Up: - I have received and understand the above instructions and will call my doctor if I have any further questions. Patient Signature Date Nurse Signature Other (Relationship) CHELSI SANTOS DO May 22, 2019 09:26
--- NOTE | 2019-05-22 10:52 | Anesthesia-General Post-Op ---
MAC Patient Condition Mental Status/LOC: Same as Preop Cardiovascular: Satisfactory Nausea/Vomiting: Absent Respiratory: Satisfactory Pain: Controlled Complications: Absent Post Op Complications Complications None Follow Up Care/Instructions Patient Instructions None needed. Anesthesiology Discharge Order Discharge Order Patient is doing well, no complaints, stable vital signs, no apparent adverse anesthesia problems. No complications reported per nursing. SHASHI PARKS CRNA May 22, 2019 10:52
--- NOTE | 2019-05-24 14:48 | OPERATIVE REPORT ---
DATE OF SERVICE: 05/22/2019 PREOPERATIVE DIAGNOSES: 1. Gastritis. 2. Diarrhea. 3. Abdominal pain. 4. Screening colonoscopy. POSTOPERATIVE DIAGNOSES: 1. Gastritis. 2. Esophagitis. 3. Colon polyps. 4. Internal hemorrhoids. PROCEDURES: 1. EGD with biopsy. 2. Colonoscopy with snare polypectomy. 3. Colonoscopy with cold biopsy. SURGEON: Gaurav Saini DO RESIDENTIAL FRAMING CARPENTER: None. ANESTHESIA: IV sedation by FRANKFURTER INSPECTOR. SPECIMEN: Antral biopsy, body of stomach biopsy and GE junction biopsy and then in the colon, there was a rectal polyp, ascending colon polyp and descending colon polyp. BLOOD LOSS: Scant. FLUIDS: Per anesthesia. POSTOPERATIVE CONDITION: Stable. INDICATION FOR PROCEDURE: The patient is a 64-year-old female, who has some chronic gastritis, diarrhea, abdominal pain and needed a screening colonoscopy. FINDINGS: The patient had gastritis, esophagitis as well as colon polyps and internal hemorrhoids. PROCEDURE NOTE: After informed consent was obtained, the patient was brought to the endoscopy suite and placed in the left lateral decubitus position. She was administered IV sedation by the FRANKFURTER INSPECTOR, who then monitored the vitals the entire time, heart rate, blood pressure and pulse ox and started with an EGD. Scope was placed down the mouth through the esophagus into the stomach, pushed into the stomach, antrum looked like it was a little bit red and then pushed into the duodenum. Duodenum looked fine. Pulled back and then did a biopsy of the antrum and then pulled back a bit more, did a biopsy of the stomach, retroflexed the scope, did not really look like any hiatal hernia, pulled back into the GE junction, it looked like there was some creeping up of the Z-line and I elected to do a biopsy of the GE junction, then pulled up the esophagus and out the mouth. Switched camera, switched gloves, went down below, started the colonoscopy, inserted the scope, pushed all the way to 150 cm, able to get to the cecum, took a picture of the appendiceal orifice, noted the ileocecal valve and then slowly withdrew the scope, looking circumferentially at the hsieh,, looking into the cecum, up into the ascending colon, in the ascending colon there was a very flat polyp. I elected to do a biopsy of this, used a cold biopsy to get a piece of this and sent to pathology and then continued up to the hepatic flexure, then down the transverse colon, splenic flexure, into the descending colon. In the descending colon, saw another polyp, it was a larger polyp, able to get to do a snare polypectomy of this and removed this and suctioned this up, sent to pathology. Continued down the descending colon and the sigmoid and finally into the rectum. In the rectum, saw another polyp, able to do another snare polypectomy here to remove the whole thing, retroflexed the scope, saw some small internal hemorrhoids. No other obvious pathology and then removed the scope. The patient tolerated the procedure. She was recovered in endoscopy suite. Job ID: [id number] DocumentID: [id number] Dictated Date: 05/24/2019 09:49:48 Electric Pile Driver Operator Date: 05/24/2019 14:47:48 Dictated By: GAURAV SAINI DO
== END 2019-05-22 10:00 | disposition home or self-care (01) ==
LOC: ENDO 07:11
PROVIDERS: ATTEND Surgery
DX: Z12.11 Encounter for screening for malignant neoplasm of colon (principal); D12.4 Benign neoplasm of descending colon; K62.1 Rectal polyp; D12.2 Benign neoplasm of ascending colon; K29.50 Unspecified chronic gastritis without bleeding; K21.0 Gastro-esophageal reflux disease with esophagitis; K31.89 Other diseases of stomach and duodenum; K64.8 Other hemorrhoids; K59.00 Constipation, unspecified; I25.10 Atherosclerotic heart disease of native coronary artery without angina pectoris; I63.9 Cerebral infarction, unspecified; I10 Essential (primary) hypertension; I48.0 Paroxysmal atrial fibrillation; F32.9 Major depressive disorder, single episode, unspecified; F41.9 Anxiety disorder, unspecified; F17.200 Nicotine dependence, unspecified, uncomplicated; G62.9 Polyneuropathy, unspecified; M06.9 Rheumatoid arthritis, unspecified; J44.9 Chronic obstructive pulmonary disease, unspecified; E78.5 Hyperlipidemia, unspecified; Z88.8 Allergy status to other drugs, medicaments and biological substances; Z88.5 Allergy status to narcotic agent; Z79.01 Long term (current) use of anticoagulants; Z79.899 Other long term (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
CPT/HCPCS: 88305

== ENCOUNTER → 2019-06-26 | Outpatient (CLI) | payer MEDICARE ==
--- NOTE | 2019-06-26 13:17 | Diagnostic Imaging Report ---
EXAM: CT CHEST SCREENING WO INDICATION: [id number] smoking history. Current smoker. COMPARISON: CT chest without contrast 06/23/2018. FINDINGS: Moderate to advanced centrilobular emphysematous changes and diffuse peripheral fibrotic interstitial opacities. There are a few scattered pulmonary cysts. No honeycombing. Single 0.4 cm groundglass nodule in the right lower lobe (series 3, image 110). No endobronchial lesions. No pleural effusion or pneumothorax. Mild atherosclerotic calcifications including coronary and aortic. No mediastinal, hilar or axillary lymphadenopathy. Normal heart size. No pericardial effusion. The visualized upper abdominal contents are unremarkable. Implanted loop recorder. Osseous structures are intact. IMPRESSION: 1. 0.4 cm groundglass nodule in the right lower lobe. Recommend followup low-dose chest CT in 6 months. 2. Moderate to advanced centrilobular emphysema and fibrotic changes in lungs. 3. Mild atherosclerotic calcifications including coronary and aortic. Lung rads category: 3. Modifier: None. Please note that the low-dose technique of this chest CT is of non-diagnostic quality. This study is only intended for lung cancer screening of high risk patients. Dictated by: Dictated on workstation # [id number]
== END ==
LOC: RAD 11:20
PROVIDERS: ATTEND Registered Nurse
DX: Z12.2 Encounter for screening for malignant neoplasm of respiratory organs (principal); J43.2 Centrilobular emphysema; J84.10 Pulmonary fibrosis, unspecified; I70.0 Atherosclerosis of aorta; I25.10 Atherosclerotic heart disease of native coronary artery without angina pectoris; R91.1 Solitary pulmonary nodule; F17.210 Nicotine dependence, cigarettes, uncomplicated

== ENCOUNTER → 2019-06-27 | Outpatient (CLI) | payer MEDICARE ==
--- NOTE | 2019-06-27 11:58 | Diagnostic Imaging Report ---
INDICATION: 64-year-old asymptomatic postmenopausal female COMPARISON: None available. FINDINGS: AP Spine L1-L4: [BMD (g/cm2): 1.284] [T-Score: 0.7] [Z-Score: 0.9] [BMD Previous: N/A] [BMD % Change: N/A] LT Hip Neck: [BMD (g/cm2): 1.042] [T-Score: 0.0] [Z-Score: 0.6] LT Hip Total: [BMD (g/cm2):1.168] [T-Score:1.3] [Z-Score: 1.5] [BMD Previous: N/A] [BMD % Change: N/A] RT Hip Neck: [BMD (g/cm2):0.926] [T-Score:-0.8] [Z-Score:-0.2] RT Hip Total: [BMD (g/cm2):1.061] [T-score:0.4] [Z-Score:0.6] [BMD Previous:N/A] [BMD % Change:N/A] *Indicates significant change from prior examination based on 95% confidence level. World Health Organization criteria for BMD interpretation classify patients as Normal (T-score at or above -1.0), Osteopenic (T-score between -1.0 and -2.5) or Osteoporotic (T-score at or below -2.5). LIMITATIONS AND MODIFICATION: None. FRACTURE RISK (FRAX SCORE): The ten year probability of (%): Major Osteoporotic Fracture: [N/A] Hip Fracture: [N/A] IMPRESSION: 1. Normal bone mineral density. 2. Baseline examination. 3. See below National Osteoporosis Foundation guidelines on when to potentially initiate pharmacologic therapy. Based on the National Osteoporosis Foundation Guidelines, pharmacologic treatment should be initiated in any of the following, unless clinical conditions suggest otherwise: * Any patient with prior fragility fracture of the hip or vertebrae. A spine fracture indicates 5X risk for subsequent spine fracture and 2X risk for subsequent hip fracture. * Osteoporosis (T-score <-2.5). * Postmenopausal women and men age 50 and older with low bone mass/osteopenia (T-score between -1.0 and -2.5) by DXA and 10-year major osteoporotic fracture greater than 20% or a 10-year probability of hip fracture greater than 3%. These fracture risks are supplied above in the FRAX score, if applicable. * Clinician judgement and/or patient preferences may indicate treatment for people with 10-year fracture probabilities above or below these levels. Dictated by: Dictated on workstation # [id number]
--- NOTE | 2019-06-27 12:22 | Diagnostic Imaging Report ---
Indication: Routine screening. Comparison is made prior mammogram from 09/22/2016 and 08/13/2015. 2-D and 3-D bilateral screening mammography was performed with CAD. Scattered fibroglandular densities are identified bilaterally. Benign parenchymal and vascular calcifications are identified bilaterally. Cardiac monitoring device in the left breast is noted. No mass or malignant-appearing microcalcifications are seen. Axillae are unremarkable. Impression: BI-RADS category 2 No mammographic features suspicious for malignancy are identified. ACR BI-RADS Category 2: Benign findings. Result letter will be mailed to the patient. Note: At least 10% of breast cancer is not imaged by mammography. Dictated by: Dictated on workstation # [id number]
== END ==
LOC: RAD 08:42
PROVIDERS: ATTEND Registered Nurse
DX: Z12.31 Encounter for screening mammogram for malignant neoplasm of breast (principal); Z13.820 Encounter for screening for osteoporosis; Z78.0 Asymptomatic menopausal state; Z95.818 Presence of other cardiac implants and grafts; Z72.0 Tobacco use
CPT/HCPCS: 77067; 77080

== ENCOUNTER 2019-11-10 14:44 | Observation (INO) | payer MEDICARE ==
[~2019-11-10] VITALS: Ht 170.2 cm; Wt 76.3 kg
[~2019-11-10 14:44] MED LIST changes: -ACET-77 PO; +ACET-78 PO; +EZET10TA17 PO; -EZET10TA5 PO; -GUAI400T44 PO; +GUAI400T85 PO; -LOPE-145 PO; +LOPE-175 PO; -MAGN400T6 PO; +MAGN400T8 PO; +OMEP40CA27 PO; +SIMV40TA25 PO; -SIMV40TA4 PO
[2019-11-10 16:30] VITALS: BP 136/74
--- NOTE | 2019-11-10 16:30 | NUR ---
TREVER KWNO admitted to room 418-1, with an admitting diagnosis of UTI , DEHYDRATION, on 11/10/19 from [facility], accompanied by EMS STAFF.TREVER KWON introduced to surroundings, call light, bed controls, phone, TV, temperature control, lights, meal times, smoking policy, visitor policy, side rail policy, bathrooms and showers. Patient Rights given to patient in the handbook.TREVER KWON verbalizes understanding that [facility] is not responsible for the loss or damage to any personal effects or valuables that are kept in the patients posession during their hospitalization. The following Patient Care Plans were discussed with the PT: Discharge Planning, PAIN CONTROL,IV MEDS, and TESTS AND PROCEDURES. TREVER KWON verbalizes understanding of Interdisciplinary Patient Education. Patient and/or family were informed about the Rapid Response Team and its purpose.
[2019-11-10] MEDS ORDERED: POTA10TA36 PO (16:53)
[2019-11-10] MEDS ORDERED: RT-ALBUTEROL SULF 2.5 MG/3 ML PRE-MIX VIAL IH PRN (18:15)
[2019-11-10] MEDS: LACTATED RINGERS 1,000 ML IV SCH (19:47)
[2019-11-10 20:00] VITALS: BP 124/59
[2019-11-10] MEDS: CEPHALEXIN 250 MG (KEFLEX) CAP PO SCH (21:04)
[2019-11-10] MEDS: meTOprolol TARTRATE 25 MG (LOPRESSOR) TABLET PO SCH (21:04)
[2019-11-10] MEDS: APIXABAN 5 MG (ELIQUIS) TABLET PO SCH (21:04)
[2019-11-10] MEDS: DOXEPIN 25 MG (SINEquan) CAP PO SCH (21:04)
[2019-11-10] MEDS: SIMvastatin 40 MG (ZOCOR) TAB PO SCH (21:04)
[2019-11-10] MEDS: GABAPENTIN 600 MG (NEURONTIN) TAB PO SCH (21:04)
[2019-11-10 23:36] VITALS: BP 118/75
[2019-11-11] MEDS: LACTATED RINGERS 1,000 ML IV SCH ×2 (02:26→08:32)
[2019-11-11 03:53] VITALS: BP 130/77
[2019-11-11] MEDS: VENlafaxine XR 75 MG (EFFEXOR XR) CAP PO SCH (06:17)
--- NOTE | 2019-11-11 07:41 | NUR ---
Dr. Graham notified of IV infiltration, OK to leave IV out at this time pt may dc home today.
[2019-11-11 08:00] VITALS: BP 133/84
[2019-11-11] MEDS: meTOprolol TARTRATE 25 MG (LOPRESSOR) TABLET PO SCH ×2 (08:31→21:21)
[2019-11-11] MEDS: APIXABAN 5 MG (ELIQUIS) TABLET PO SCH ×2 (08:31→21:21)
[2019-11-11] MEDS: CEPHALEXIN 250 MG (KEFLEX) CAP PO SCH ×3 (08:31→21:21)
[2019-11-11] MEDS: PANTOPRAZOLE 40 MG (PROTONIX) TAB PO SCH (08:31)
[2019-11-11] MEDS: GABAPENTIN 600 MG (NEURONTIN) TAB PO SCH ×2 (08:31→09:04)
[2019-11-11] MEDS ORDERED: NON-FORMULARY MEDICATION 1 EA EA (Venlafaxine HCl (Venlafaxine HCl ER) 300 MG) PO SCH (09:00)
[2019-11-11 09:05] LABS: BASOPHILS % (AUTO) 0 % (0-10); EOSINOPHILS # (AUTO) 0.1 10^3/uL (0.0-0.3); EOSINOPHILS % (AUTO) 1 % (0-10); HEMATOCRIT 41 % (35-52); HEMOGLOBIN 13.5 G/DL (11.5-16.0); LYMPHOCYTES # (AUTO) 2.1 X 10^3 (1.0-4.0); LYMPHOCYTES % (AUTO) 25 % (12-44); MEAN CORPUSCULAR HEMOGLOBIN 30 PG (25-34); MEAN CORPUSCULAR HGB CONC 33 G/DL (32-36); MEAN CORPUSCULAR VOLUME 91 FL (80-99); MEAN PLATELET VOLUME 10.1 FL (7.4-10.4); MONOCYTES # (AUTO) 0.6 X 10^3 (0.0-1.0); MONOCYTES % (AUTO) 8 % (0-12); NEUTROPHILS # (AUTO) 5.3 X 10^3 (1.8-7.8); NEUTROPHILS % (AUTO) 65 % (42-75); PLATELET COUNT 253 10^3/uL (130-400); RED CELL DISTRIBUTION WIDTH 14.9 % (10.0-14.5); WHITE BLOOD COUNT 8.1 10^3/uL (4.3-11.0)
[2019-11-11 09:22] LABS: CREATININE SERUM 1.19 MG/DL (0.60-1.30); POTASSIUM 4.4 MMOL/L (3.6-5.0)
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
--- NOTE | 2019-11-11 14:00 | NUR ---
Pt refusing to ambulate at this time, pt stats " I need a nap right now". Nursing staff will retry when she wakes up.
--- NOTE | 2019-11-11 14:32 | NUR ---
Dr. Graham notified about pt refusing to ambulate at this time (possible dc pending). Will retry when she wakes up from her nap
[2019-11-11 16:46] VITALS: BP 127/83
--- NOTE | 2019-11-11 17:49 | NUR ---
Pt ambulated approx. 200ft in bruno during shift
[2019-11-11] MEDS ORDERED: PATIENT MAY USE OWN MED,SINGLE MED PO SCH (18:15)
[2019-11-11] MEDS: SIMvastatin 40 MG (ZOCOR) TAB PO SCH (21:21)
[2019-11-11] MEDS: DOXEPIN 25 MG (SINEquan) CAP PO SCH (21:26)
[2019-11-12] VITALS: BP 162/72
[2019-11-12] MEDS: VENlafaxine XR 75 MG (EFFEXOR XR) CAP PO SCH (06:16)
[2019-11-12 07:25] VITALS: BP 144/82
[2019-11-12] MEDS: PANTOPRAZOLE 40 MG (PROTONIX) TAB PO SCH (08:28)
[2019-11-12] MEDS: CEPHALEXIN 250 MG (KEFLEX) CAP PO SCH ×2 (08:28→12:21)
[2019-11-12] MEDS: APIXABAN 5 MG (ELIQUIS) TABLET PO SCH (08:28)
[2019-11-12] MEDS: meTOprolol TARTRATE 25 MG (LOPRESSOR) TABLET PO SCH (08:28)
[2019-11-12] MEDS ORDERED: TOFACITINIB CITRATE 11 MG PO SCH (09:33)
[2019-11-12 10:50] VITALS: BP 144/82
[2019-11-12] MEDS ORDERED: CEPH250C PO (10:51)
[2019-11-12] MEDS ORDERED: FLU QUADRIvalent (5+ YOA) 2019-2020 (AFLURIA) 0.5 ML IM ONE (10:55)
--- NOTE | 2019-11-12 10:59 | Discharge Summary ---
Diagnosis/Chief Complaint Date of Admission Nov 10, 2019 at 16:33 Date of Discharge Discharge Date: Nov 12, 2019 Admission Diagnosis A/P 1. Generalized weakness likely due to urinary tract infection and dehydration patient is extremely difficult IV access lost her IV site been received over 3 L of IV fluid and is tolerating liquids and solids this morning without nausea or abdominal pain. Continue by mouth Keflex repeat BMP and CBC pending possible discharge later if patient is stable with ambulation. 2. Patient is not sure why she is taking gabapentin she believes it is more of a psychiatric medication issue she denies peripheral neuropathy although does report left ulnar neuropathy felt to be on a radicular basis from C-spine that is stable. We will discontinue gabapentin due to concerns that it may be impairing her balance. 3. Rheumatoid arthritis under good control on biologic therapy see history of present illness will continue. 4. History of right-sided CVA with left hemiparesis continue anticoagulant therapy currently no focal neurologic deficits other than stable chronic left ulnar neuropathy with weakness in the fifth digit. 5. Acute kidney injury likely due to dehydration repeat BMP and CBC. Primary Care Valdez Chen Media Manager Discharge Summary Discharge Physical Exam Allergies: Coded Allergies: methylprednisolone (Verified Allergy, Severe, FACE SWELLING, 05/18/19) Iodinated Contrast- Oral and IV Dye (Verified Allergy, Intermediate, 05/18/19) doxycycline (Unverified Allergy, Intermediate, FACIAL SWELLING, 05/18/19) fluticasone furoate (Verified Allergy, Intermediate, N/V, 05/18/19) paroxetine (Verified Allergy, Intermediate, 05/18/19) vilanterol (Verified Allergy, Intermediate, N/V, 05/18/19) codeine (Verified Allergy, Unknown, HIVES, Has received morphine in the past w/o issue, 05/18/19) fluticasone (Verified Allergy, Unknown, 05/18/19) hydrocodone (Unverified Adverse Reaction, Intermediate, DYSPNEA, HIVES, 05/18/19) oxybutynin (Verified Adverse Reaction, Mild, sores in mouth, 05/18/19) Uncoded Allergies: PAPER TAPE (Allergy, Unknown, BLISTERS/SORES, 07/10/15) Vitals & I&Os Vital Signs Date Time Temp Pulse Resp B/P (MAP) Pulse Ox O2 Delivery O2 Flow Rate FiO2 11/12/19 10:50 36.9 61 20 144/82 97 Room Air 3.00 General Appearance: No Apparent Distress, Obese Respiratory: Chest Non Tender, Lungs Clear, Normal Breath Sounds, No Accessory Muscle Use, No Respiratory Distress Cardiovascular: Regular Rate, Rhythm, No Edema, No Gallop, No JVD, No Murmur, Normal Peripheral Pulses Extremity: No Pedal Edema Hospital Course Was the Problem List Reviewed?: Yes see discussion Labs (last 24 hrs) Patient resulted labs reviewed. Discussion & Recommendations Discharge Planning: <30 minutes discharge planning Patient reports she was feeling well up until night when she noted the onset of weakness. She had had some increase in incontinence without burning and does have a past history of urinary tract infection without a lot of symptoms. She denied chills or fever. When she got up she fell and noted decrease in appetite. She's had past history of left-sided CVA 2 last episode was in 2017. She's had a reveal device placed but is not aware that she has been told she had atrial fibrillation. She sees Dr. Fletcher who did initiate Eliquis. She has history of rheumatoid arthritis diagnosed in 2005 she had been on biologic therapy but reports that it not controlled her symptoms well until she started XelJanz which is been a real lifesaver for her in her words. Last year she was admitted for pneumonia requiring short-term mechanical intubation but with resultant ICU weakness along rehabilitation. She states that she recovered completely and it been doing relatively well until . She reports some bruising in her right shoulder but no loss of consciousness or any other areas of pain from several falls she has had. CT head was done in the [place] emergency room but reportedly revealed no evidence for intracranial bleeding or other pathology. She did have evidence for acute kidney injury with a creatinine up to 2 with no reported past history of renal disease elevated white count pyuria and positive nitrate and bacteriuria. She is being admitted for urinary tract infection blood pressure was not reportedly low although I see no record of orthostatic blood pressure checks. hospital course: Was uneventful the patient's sodium levels back to normal and 139 and creatinine on the first was back down to 1.1 from a high of 2 and the emergency room. She had no nausea or vomiting no chills or fever. UA was pending at the time of discharge for clinically she was responding. Because of her falls we held her gabapentin which she may have been taking for psychiatric reasons. She had no difficulty with anxiety with no pain problems and had no evidence for flare of her underlying rheumatoid arthritis. [facility] continue her other home medications but continue to hold gabapentin. She is given 3 days of cephalexin 250 mg 3 times a day and was advised to get a UA on follow-up as well. Date Seen Discharge Home Medications: Active Scripts Active Cephalexin 250 Mg Capsule 250 Mg PO TID 3 Days Potassium Chloride 10 Meq Tab.er.prt 10 Meq PO DAILY Tramadol HCl 50 Mg Tablet 50-100 Mg PO EVERY 4-6 HOURS PRN Venlafaxine HCl ER (Venlafaxine HCl) 150 Mg Cap.er.24h 300 Mg PO DAILY 30 Days Reported Meloxicam 15 Mg Tablet 15 Mg PO DAILY Doxepin HCl 25 Mg Capsule 25 Mg PO HS Eliquis (Apixaban) 5 Mg Tablet 5 Mg PO BID Xeljanz Xr (Tofacitinib Citrate) 11 Mg Tab.er.24h 11 Mg PO DAILY Furosemide 20 Mg Tablet 20 Mg PO DAILY PRN Dicyclomine HCl 20 Mg Tablet 20 Mg PO BID PRN Ventolin Hfa (Albuterol Sulfate) 1 Puff Puff 2 Puff IH Q4H PRN 1 PUFF = 90 MCG Simvastatin 40 Mg Tablet 40 Mg PO HS Levocetirizine Dihydrochloride 5 Mg Tablet 5 Mg PO DAILY IN EVENING Pantoprazole Sodium 40 Mg Tablet.dr 40 Mg PO DAILY Gabapentin 600 Mg Tablet 600 Mg PO TID Metoprolol Tartrate 25 Mg Tablet 25 Mg PO BID LAST FILLED 11-11-17 90 DAYS Instructions to patient/family Please see electronic discharge instructions given to patient. Clinical Quality Measures DVT/VTE Risk/Contraindication: Risk Factor Score Per Nursin RFS Level Per Nursing on Admit: 4+=Very High OMAYRA MURCIA MD Nov 12, 2019 10:59
== END 2019-11-12 13:42 | disposition home or self-care (01) ==
LOC: 4TH 16:33
PROVIDERS: ADMIT Internal Medicine; ATTEND Internal Medicine
DX: N39.0 Urinary tract infection, site not specified (principal); E86.0 Dehydration; N17.9 Acute kidney failure, unspecified; R53.1 Weakness; Z87.01 Personal history of pneumonia (recurrent); S40.011A Contusion of right shoulder, initial encounter; W19.XXXA Unspecified fall, initial encounter; I69.354 Hemiplegia and hemiparesis following cerebral infarction affecting left non-dominant side; Z79.01 Long term (current) use of anticoagulants; M06.9 Rheumatoid arthritis, unspecified; G56.22 Lesion of ulnar nerve, left upper limb; Z88.5 Allergy status to narcotic agent; E78.00 Pure hypercholesterolemia, unspecified; I10 Essential (primary) hypertension; K21.9 Gastro-esophageal reflux disease without esophagitis; K58.9 Irritable bowel syndrome, unspecified; M54.9 Dorsalgia, unspecified; F17.210 Nicotine dependence, cigarettes, uncomplicated; F41.9 Anxiety disorder, unspecified; F32.9 Major depressive disorder, single episode, unspecified; Z23 Encounter for immunization
CPT/HCPCS: 36415; 80048; 85025; 94760

== ENCOUNTER → 2020-06-10 | Outpatient (CLI) | payer MEDICARE ==
[~2020-06-10] MED LIST changes: +CEPH250C PO; -MONT10TA24 PO; +MONT10TA26 PO; +ONDA-105 PO; -ONDA4TAB10 PO; +POTA10TA36 PO
--- NOTE | 2020-06-10 17:19 | Diagnostic Imaging Report ---
PROCEDURE: CT urinary tract, rule out kidney stone. TECHNIQUE: Multiple contiguous axial images were obtained through the abdomen and pelvis without the use of intravenous contrast. Auto Exposure Controls were utilized during the CT exam to meet ALARA standards for radiation dose reduction. INDICATION: Hematuria, bilateral flank pain and pelvic pain. FINDINGS: There are bilateral kidney stones but no hydroureteronephrosis and no radiodense urinary tract calculi. The unopacified urinary bladder is unremarkable. The uterus and adnexa are unremarkable. There is no appendicitis or diverticulitis. There is no bowel, biliary, or urinary tract obstruction. No perienteric or pericolonic edema. No focal inflammatory process. The unopacified liver, spleen, adrenals, and pancreas are unremarkable. There are equivocal findings for small amount of sludge or stone in the gallbladder near the neck. The gallbladder is nondistended, its wall non-thickened, and there is no pericholecystic edema. We note the dominant exophytic cyst off the lower pole of the right kidney shows minimal peripheral calcification. IMPRESSION: 1. No obstructive features, inflammatory process, or acute findings. Bilateral renal cysts with minimal complication on the right. Equivocal findings for slight sludge versus noncalcified stone in the gallbladder without biliary dilatation or acute cholecystitis. 2. No appendicitis or diverticulitis. Dictated by: Dictated on workstation # [id number]
== END ==
LOC: RAD 16:39
PROVIDERS: ATTEND Nurse Practitioner Family
DX: N28.1 Cyst of kidney, acquired (principal); R31.9 Hematuria, unspecified
CPT/HCPCS: 74176

== ENCOUNTER → 2020-06-25 | Outpatient (CLI) | payer MEDICARE ==
--- NOTE | 2020-06-25 10:35 | Diagnostic Imaging Report ---
CLINICAL INDICATION: Patient with right lower quadrant pain. EXAM: Right upper quadrant ultrasound. COMPARISON: Ultrasound abdomen dated 03/20/2011. CT scan of the abdomen and pelvis without contrast dated 06/10/2020. FINDINGS: Patient body habitus and overlying bowel gas limits evaluation of intra-abdominal structures. The pancreas and proximal abdominal aorta and CBD are obscured by overlying bowel gas and cannot be appropriately evaluated. The visualized portions of the liver shows no mass or intrahepatic duct dilation. The liver measures 15.8 cm. The liver surface is smooth. There is roughly 11 mm echogenic area near the neck of the gallbladder, appears to possibly be mobile. There is no associated posterior shadowing. This may represent sludge. The gallbladder is mild to moderately fluid filled. The gallbladder wall is upper limits of normal at 3 mm. There is no pericholecystic fluid. Visualized portions of the distal IVC is unremarkable. There is a roughly 6.1 cm cyst involving the posterior inferior aspect of the right kidney which is better seen on comparison CT scan. Right kidney is otherwise unremarkable. There is no hydronephrosis. Right kidney measures 11 cm in craniocaudal dimension. There is no abdominal ascites. IMPRESSION: 1: Limited exam due to patient body habitus and overlying bowel gas. The pancreas, CBD, and abdominal aorta are obscured and unable to be evaluated. 2: Suspected sludge within the gallbladder. There is no ultrasound evidence of acute cholecystitis. 3: Right renal cyst. Otherwise right kidney is unremarkable. Dictated by: Dictated on workstation # [id number]
== END ==
LOC: RAD 09:21
PROVIDERS: ATTEND Nurse Practitioner Family
DX: N28.1 Cyst of kidney, acquired (principal)
CPT/HCPCS: 76705

== ENCOUNTER → 2022-03-27 | Outpatient (CLI) | payer MEDICARE ==
[~2022-03-27] MED LIST changes: +AMLO-250 PO; +AMLO-251 NG; -AMLO10TA7 NG; -AMLO5TAB9 PO; -CIPR500T4 PO; +CIPR500T5 PO; +CYCL10TA25 PO; -CYCL10TA9 PO; +DICY20TA PO; -DICY20TA10 PO; +GUAI400T62 PO; -GUAI400T85 PO; -MAGN400T8 PO; +MGX400T PO; +MONT-40 PO; -MONT10TA26 PO; -OMEP40CA27 PO; +OMEP40CA6 PO; -PANT40TA3 PO; +PANT40TA52 PO; -POLY17PO31 PO; +POLY17PO54 PO; -POTA10TA36 PO; +POTA10TA37 PO; +SULF1TAB38 PO
== END ==
LOC: CARD 13:30
PROVIDERS: ATTEND Physician Assistant
DX: I25.10 Atherosclerotic heart disease of native coronary artery without angina pectoris (principal)
CPT/HCPCS: 93306

== ENCOUNTER → 2022-04-29 | Outpatient (CLI) | payer MEDICARE ==
[~2022-04-29] VITALS: Ht 167 cm; Wt 94.0 kg
[~2022-04-29] MED LIST changes: +CATHETER FLUSH 10 ML SYR IVP PRN; +NF-CRES10T PO; +REGADENOSON 0.4 MG/5 ML SYR (LEXISCAN) IV ONE; -ROSU10TA22 PO
[2022-04-29 12:54] VITALS: BP 134/56
--- NOTE | 2022-04-30 11:38 | Cardiology Stress Test Report ---
Stress Test Report Date of Procedure/Referring: Date of Procedure: Apr 29, 2022 PCP Anselmo Cintron - [facility] Admitting Physician Admitting Physician: Attending Physician: Caitlyn Castaneda Indications: HTN Baseline Heart Rate: 106 Baseline Blood Pressure: Blood Pressure Systolic: 134 Blood Pressure Diastolic: 56 Baseline Vitals Vital Signs Date Time Temp Pulse Resp B/P (MAP) Pulse Ox O2 Delivery O2 Flow Rate FiO2 04/29/22 12:54 106 134/56 (82) Baseline EKG: Baseline EKG: NSR Summary After explaining the procedure to the patient, she signed a consent and then brought to the stress nuclear laboratory. Patient received 0.4 mg Lexiscan for stress test, ECG, heart rate and blood pressure were monitored continuously. Resting and stress dose of radio tracer were injected, imaging was acquired and reviewed in short axis, horizontal long axis and vertical long axis views. TID: 1.01 SSS: 5 SDS: 5 EF: 83 1. Patient tolerated Lexiscan well 2. Baseline sinus tachycardia persisted during test 3. Mild decrease uptake at the inferoapical segment with mild reversibility, no significant ischemia or infarction on SPECT images 4. Normal left ventricular size, ejection fraction 83% Copy Copies To 1: [facility]/NADIYA AGUERO MD Apr 30, 2022 11:38
== END ==
LOC: CARD 11:45
PROVIDERS: ATTEND Physician Assistant
DX: I25.10 Atherosclerotic heart disease of native coronary artery without angina pectoris (principal); I10 Essential (primary) hypertension
CPT/HCPCS: 78452; 93017; A9502

== ENCOUNTER 2022-06-30 00:30 | Inpatient (IN) | payer MEDICARE ==
[~2022-06-30] VITALS: Ht 160 cm; Wt 86.9 kg
[2022-06-30] VITALS (22 sets, daily range): BP systolic 92–132; BP diastolic 43–112
[~2022-06-30 00:30] MED LIST changes: -CATHETER FLUSH 10 ML SYR IVP PRN; +POTA-177 PO; -POTA10TA37 PO; -REGADENOSON 0.4 MG/5 ML SYR (LEXISCAN) IV ONE
[2022-06-30] MEDS ORDERED: dilTIAZem DRIP PRE-MIX 125 ML IV SCH (03:30)
[2022-06-30] MEDS ORDERED: NS IV 500 ML 500 ML IV PRN (03:45)
[2022-06-30] MEDS ORDERED: POTASSIUM CL 10MEQ/50ML IVPB 50 ML IV SCH (06:00)
[2022-06-30] MEDS ORDERED: MAGNESIUM 1 GM/100 ML IVPB 100 ML IV SCH (06:00)
[2022-06-30] MEDS ORDERED: KCL 20 MEQ TAB (K-DUR) PO SCH (06:00)
[2022-06-30] MEDS: inSUlin ASPART (NovoLOG) 1 UNIT/0.01 ML (CHARGE PER UNIT) SC SCH ×2 (07:00→10:00)
[2022-06-30 07:19] LABS: BASOPHILS % (AUTO) 0 % (0-10); EOSINOPHILS % (AUTO) 0 % (0-10); HEMATOCRIT 30 % (35-52); HEMOGLOBIN 9.4 g/dL (11.5-16.0); LYMPHOCYTES # (AUTO) 1.7 10^3/uL (1.0-4.0); LYMPHOCYTES % (AUTO) 26 % (12-44); MEAN CORPUSCULAR HEMOGLOBIN 25 pg (25-34); MEAN CORPUSCULAR HGB CONC 32 g/dL (32-36); MEAN CORPUSCULAR VOLUME 80 fL (80-99); MEAN PLATELET VOLUME 9.4 fL (9.0-12.2); MONOCYTES # (AUTO) 0.6 10^3/uL (0.0-1.0); MONOCYTES % (AUTO) 10 % (0-12); NEUTROPHILS # (AUTO) 4.2 10^3/uL (1.8-7.8); NEUTROPHILS % (AUTO) 64 % (42-75); PLATELET COUNT 444 10^3/uL (130-400); WHITE BLOOD COUNT 6.6 10^3/uL (4.3-11.0)
[2022-06-30 07:36] LABS: ALBUMIN 3.3 GM/DL (3.2-4.5); POTASSIUM 3.4 MMOL/L (3.6-5.0)
[2022-06-30 07:37] LABS: CALCIUM 9.5 MG/DL (8.5-10.1)
[2022-06-30 07:39] LABS: TOTAL PROTEIN 7.3 GM/DL (6.4-8.2)
[2022-06-30 07:40] LABS: BILIRUBIN,TOTAL 0.5 MG/DL (0.1-1.0)
[2022-06-30 07:50] LABS: ANISOCYTOSIS SLIGHT; BAND NEUTROPHILS 3 %; BASOPHILS % (MANUAL) 0 %; EOSINOPHILS % (MANUAL) 1 %; HYPOCHROMASIA SLIGHT; LYMPHOCYTES % (MANUAL) 27 %; MONOCYTES % (MANUAL) 9 %; NEUTROPHILS % (MANUAL) 60 %; TARGET CELLS SLIGHT
[2022-06-30] MEDS ORDERED: KCL 20 MEQ TAB (K-DUR) PO NR ×2 (08:00→09:00)
--- NOTE | 2022-06-30 08:19 | Consultation-Cardiology ---
HPI-Cardiology Cardiology Consultation Date of Consultation 06/30/22 Date of Admission Time Seen by Provider: 08:13 Indication: Atrial fibrillation HPI 67-year-old lady with history of paroxysmal atrial fibrillation, multiple CVA. Was transferred from [facility], patient was admitted to [facility] with generalized weakness, fever and chills. Cough and hemoptysis, had right upper lobe infiltrate. She was noted to be in atrial fibrillation with rapid ventricular response and transferred to our institution. On my evaluation patient was back in sinus rhythm, still having generalized weakness and loss of energy. Fatigue. No fever or chills. Home Medications & Allergies Allergies: Coded Allergies: methylprednisolone (Verified Allergy, Severe, FACE SWELLING, 05/18/19) Iodinated Contrast- Oral and IV Dye (Verified Allergy, Intermediate, 05/18/19) doxycycline (Unverified Allergy, Intermediate, FACIAL SWELLING, 05/18/19) fluticasone furoate (Verified Allergy, Intermediate, N/V, 05/18/19) paroxetine (Verified Allergy, Intermediate, 05/18/19) vilanterol (Verified Allergy, Intermediate, N/V, 05/18/19) codeine (Verified Allergy, Unknown, HIVES, Has received morphine in the past w/o issue, 05/18/19) fluticasone (Verified Allergy, Unknown, 05/18/19) hydrocodone (Unverified Adverse Reaction, Intermediate, DYSPNEA, HIVES, 05/18/19) oxybutynin (Verified Adverse Reaction, Mild, sores in mouth, 05/18/19) Uncoded Allergies: PAPER TAPE (Allergy, Unknown, BLISTERS/SORES, 07/10/15) Home Medication List Reviewed: Yes IKO-Nipdrt-Uaavyp Hx Patient Social History Marital Status: Smoking Status: Former Smoker Type Used: Cigarettes 2nd Hand Smoke Exposure: Yes Recent Hopitalizations: No Have you traveled recently?: No Alcohol Use?: No Immunizations Up To Date Tetanus Booster (TDap): Unknown Date of Pneumonia Vaccine: Aug 18, 2017 Date of Influenza Vaccine: Aug 18, 2017 Past Medical History Discussed below Family Medical History Significant Family History: Cancer, Psychiatric Problems Family History: Dementia 19 MOTHER FH: prostate cancer son, Onset:25's - 30 Review of Systems-General Review of Systems Constitutional: see HPI, malaise EENTM: see HPI, no symptoms reported Respiratory: see HPI, cough, dyspnea on exertion, hemoptysis Cardiovascular: see HPI; No chest pain, No edema, No Hx of Intervention; palp itations; No syncope, No vascular heart diseas, No other Gastrointestinal: no symptoms reported, see HPI Genitourinary: no symptoms reported, see HPI Musculoskeletal: no symptoms reported, see HPI Skin: no symptoms reported, see HPI Psychiatric/Neurological: No Symptoms Reported, See HPI Reviewed Test Results Reviewed Test Results Lab Laboratory Tests Test 06/30/22 07:05 Range/Units White Blood Count 6.6 4.3-11.0 10^3/uL Red Blood Count 3.72 L 3.80-5.11 10^6/uL Hemoglobin 9.4 L 11.5-16.0 g/dL Hematocrit 30 L 35-52 % Mean Corpuscular Volume 80 80-99 fL Mean Corpuscular Hemoglobin 25 25-34 pg Mean Corpuscular Hemoglobin Concent 32 32-36 g/dL Red Cell Distribution Width 15.7 H 10.0-14.5 % Platelet Count 444 H 130-400 10^3/uL Mean Platelet Volume 9.4 9.0-12.2 fL Immature Granulocyte % (Auto) 1 % Neutrophils (%) (Auto) 64 42-75 % Lymphocytes (%) (Auto) 26 12-44 % Monocytes (%) (Auto) 10 0-12 % Eosinophils (%) (Auto) 0 0-10 % Basophils (%) (Auto) 0 0-10 % Neutrophils # (Auto) 4.2 1.8-7.8 10^3/uL Lymphocytes # (Auto) 1.7 1.0-4.0 10^3/uL Monocytes # (Auto) 0.6 0.0-1.0 10^3/uL Eosinophils # (Auto) 0.0 0.0-0.3 10^3/uL Basophils # (Auto) 0.0 0.0-0.1 10^3/uL Immature Granulocyte # (Auto) 0.0 0.0-0.1 10^3/uL Neutrophils % (Manual) 60 % Lymphocytes % (Manual) 27 % Monocytes % (Manual) 9 % Eosinophils % (Manual) 1 % Basophils % (Manual) 0 % Band Neutrophils 3 % Hypochromasia SLIGHT Anisocytosis SLIGHT Target Cells SLIGHT Sodium Level 138 135-145 MMOL/L Potassium Level 3.4 L 3.6-5.0 MMOL/L Chloride Level 101 98-107 MMOL/L Carbon Dioxide Level 24 21-32 MMOL/L Anion Gap 13 5-14 MMOL/L Blood Urea Nitrogen 16 7-18 MG/DL Creatinine 1.00 0.60-1.30 MG/DL Estimat Glomerular Filtration Rate 63 BUN/Creatinine Ratio 16 Glucose Level 130 H 70-105 MG/DL Calcium Level 9.5 8.5-10.1 MG/DL Corrected Calcium 10.1 8.5-10.1 MG/DL Total Bilirubin 0.5 0.1-1.0 MG/DL Aspartate Amino Transf (AST/SGOT) 45 H 5-34 U/L Alanine Aminotransferase (ALT/SGPT) 30 0-55 U/L Alkaline Phosphatase 80 40-136 U/L Total Creatine Kinase 126 29-168 U/L Troponin I 0.029 H <0.028 NG/ML Total Protein 7.3 6.4-8.2 GM/DL Albumin 3.3 3.2-4.5 GM/DL Physical Exam Physical Exam Vital Signs Vital Signs - First Documented 06/30/22 06/30/22 02:24 02:29 Temp 35.6 Pulse 134 Resp 10 B/P (MAP) 115/61 (79) Pulse Ox 95 O2 Delivery Nasal Cannula O2 Flow Rate 2.00 Capillary Refill : Height, Weight, BMI Height: 5'6.00" Weight: 220lbs. 0.0oz. 99.445961gk; 32.69 BMI Method:Stated General Appearance: No Apparent Distress, WD/WN Eyes: Bilateral Eye Normal Inspection, Bilateral Eye PERRL, Bilateral Eye EOMI HEENT: PERRL/EOMI, TMs Normal, Normal ENT Inspection, Pharynx Normal, Moist Mucous Membranes Neck: Full Range of Motion, Normal Inspection, Non Tender, Supple, Carotid Bruit Respiratory: Chest Non Tender, Normal Breath Sounds, No Accessory Muscle Use, No Respiratory Distress Cardiovascular: Regular Rate, Rhythm, No Edema, No Gallop, No JVD, No Murmur, Normal Peripheral Pulses Gastrointestinal: Normal Bowel Sounds, No Organomegaly, No Pulsatile Mass, Non Tender, Soft Back: Normal Inspection, No CVA Tenderness, No Vertebral Tenderness Extremity: Normal Capillary Refill, Normal Inspection, Normal Range of Motion, Non Tender, No Calf Tenderness, No Pedal Edema Neurologic/Psychiatric: Alert, Oriented x3, No Motor/Sensory Deficits, Normal Mood/Affect Skin: Normal Color, Warm/Dry Lymphatic: No Adenopathy A/P-Cardiology Admission Diagnosis Hemoptysis Paroxysmal atrial fibrillation Hypertension Hyperlipidemia Assessment/Plan Generalized fatigue and loss of energy, right upper lobe infiltrate, chronic hemoptysis Managed by primary care physician Paroxysmal atrial fibrillation, patient had history of loop recorder documented atrial fibrillation, maintained on Eliquis Had an episode of atrial fibrillation with rapid ventricular response and converted back to sinus rhythm. I will start her on Multaq and evaluate tolerance and response [id number] score of 4, yearly risk of stroke without oral anticoagulation is 4%. Restart Eliquis Recurrent hemoptysis, has been following with Dr. Lopez Reported that she had bronchoscopy and there was a lung mass and lymphadenopathy but according to the patient it was benign after biopsy. Followed by Dr. Lopez Minimal troponin elevation, we will continue to monitor the trend. Patient denied any active chest pain. Last stress test was done in April 2022 showing minimal decrease uptake at the inferoapical segment with mild reversibility, overall no significant ischemia was noted, stress score 5, SDS 5, ejection fraction 83%. Continue to monitor. Nonobstructive coronary artery disease per cardiac catheterization 2010 Last stress test was done in April 2022 as described above. Continue to monitor History of recurrent stroke, multiple stroke reported in the past, last stroke occurred in March 2017 and received TPA in [facility], second stroke occurred in August 2017, CT was reported as periventricular and deep white matter hypodensity suggesting chronic microvascular ischemic changes. Reveal device was implanted and showed episodes of atrial fibrillation, is now maintained on Eliquis GERD, maintained on Protonix, no recent endoscopy, has seen Dr. Saini in the past, will refer back to Dr. Saini for further evaluation. History of recurrent sinus tachycardia, maintained on beta-blockers and tolerating medication well. Peripheral edema, reporting improvement. 2-D echocardiogram in August 2017 within normal limits. I will repeat 2D echo Hypertension, monitor blood pressure Hyperlipidemia, intolerant to statin, monitor lipids Chronic dizziness, reporting improvement. History of syncope with negative tillt table test, test was done in December 2011, no further syncopal episodes were noted. Continue to monitor. Rheumatoid arthritis Obesity, BMI is 32, educated on weight loss Mild bilateral carotid stenosis, last ultrasound was done in November 2019, continue to monitor. Ex tobaccoism NADIYA SCOTT MD Jun 30, 2022 08:19
--- NOTE | 2022-06-30 08:54 | Tele-ICU Consult ---
History of Present Illness History of Present Illness Date Seen by Provider: Jun 30, 2022 Time Seen by Provider: 08:53 Reason for Visit: lung mass, afib, hypoxia History of Present Illness (Tele-ICU Physician , consultation) Available chart/ vitals / labs / Images reviewed H&P is from ER notes Patient's information available about PMH, allergy reviewed in EMR. ROS as per chart and RN report Video assessment done using teleICU camera, rest of exam as per RN Discussed with RN. This patient who has a history of hypertension, stroke in the past for which she has been on apixaban recently moved with her daughter as she is unable to care herself was found on the floor and feces by her daughter and brought to the emergency room where she is found to have atrial fibrillation with rapid ventricular rate. Initially apparently she is somewhat disoriented but now she is completely oriented. She has a history of lung mass with what looks like a metastatic disease on the CT of the chest previously for which she underwent lung biopsy at the [facility]. According to her her biopsy was negative for malignancy but exact etiology not clear and we do not have the report yet. She is started on Cardizem drip for rate which her heart rate controlled and currently converted to sinus rhythm. Patient is seen by cardiology and restarted on apixaban. Currently she is awake alert oriented. In no acute distress but complains of weakness and fatigue. also has intermittent hemo ptysis. She had apparently bronchoscopic guided lung biopsy. Allergies and Home Medications Allergies Coded Allergies: methylprednisolone (Verified Allergy, Severe, FACE SWELLING, 05/18/19) Iodinated Contrast- Oral and IV Dye (Verified Allergy, Intermediate, 05/18/19) doxycycline (Unverified Allergy, Intermediate, FACIAL SWELLING, 05/18/19) fluticasone furoate (Verified Allergy, Intermediate, N/V, 05/18/19) paroxetine (Verified Allergy, Intermediate, 05/18/19) vilanterol (Verified Allergy, Intermediate, N/V, 05/18/19) codeine (Verified Allergy, Unknown, HIVES, Has received morphine in the past w/o issue, 05/18/19) fluticasone (Verified Allergy, Unknown, 05/18/19) hydrocodone (Unverified Adverse Reaction, Intermediate, DYSPNEA, HIVES, 05/18/19) oxybutynin (Verified Adverse Reaction, Mild, sores in mouth, 05/18/19) Uncoded Allergies: PAPER TAPE (Allergy, Unknown, BLISTERS/SORES, 07/10/15) Home Medications Albuterol Sulfate 1 Puff Puff, 2 PUFF IH Q4H PRN for SHORTNESS OF BREATH, (Reported) 1 PUFF = 90 MCG Apixaban 5 Mg Tablet, 5 MG PO BID, (Reported) Cephalexin 250 Mg Capsule, 250 MG PO TID Prescribed by: OMAYRA UMRCIA on 11/12/19 1051 Dicyclomine HCl 20 Mg Tablet, 20 MG PO BID PRN for STOMACH UPSET, (Reported) Doxepin HCl 25 Mg Capsule, 25 MG PO HS, (Reported) Furosemide 20 Mg Tablet, 20 MG PO DAILY PRN for SWELLING, (Reported) Levocetirizine Dihydrochloride 5 Mg Tablet, 5 MG PO DAILY IN EVENING, (Reported) Meloxicam 15 Mg Tablet, 15 MG PO DAILY, (Reported) Metoprolol Tartrate 25 Mg Tablet, 25 MG PO BID, (Reported) LAST FILLED 11-11-17 90 DAYS Pantoprazole Sodium 40 Mg Tablet.dr, 40 MG PO DAILY, (Reported) Potassium Chloride 10 Meq Tab.er.prt, 10 MEQ PO DAILY Prescribed by: JOHN GUZMAN on 11/10/19 1653 Simvastatin 40 Mg Tablet, 40 MG PO HS, (Reported) Tofacitinib Citrate 11 Mg Tab.er.24h, 11 MG PO DAILY, (Reported) Tramadol HCl 50 Mg Tablet, 50-100 MG PO EVERY 4-6 HOURS PRN for PAIN-MODERATE Prescribed by: KISHAN CHAVEZ on 06/29/18 0938 Venlafaxine HCl 150 Mg Cap.er.24h, 300 MG PO DAILY Prescribed by: ROHIT AZEVEDO on 06/13/18 1605 Past Medical/Social/Family Hx Patient Social History Marrital Status: Tobacco Use?: Yes Tobacco type used: Cigarettes Smoking Status: Former Smoker Substance use?: No Alcohol Use?: No Pt stated abuse/neglect: No Immunizations Up To Date Tetanus Booster (TDap): Unknown Date of Pneumonia Vaccine: Aug 18, 2017 Current Status Advance Directives: No Communicates: Verbally Primary Language: Tuvaluan Preferred Spoken Language: Tuvaluan Is interpretation needed?: No Implanted or Applied Medical D: None Past Medical History Past medical history 1. Rheumatoid arthritis 2. COPD 3. Morbid obesity 4. Depression, anxiety with associated agoraphobia 5. Hypertension 6. Hypercholesterolemia 7. Gastroesophageal reflux disease 8. Irritable bowel syndrome 9. Chronic urinary incontinence 10. CVA 11. Moderate, Non-obstructive CAD 12. Asthma 13. COPD 14. Fatty Liver Disease 15. Peripheral Neuropathy 16. Prediabetes 17. Osteoarthritis 18. Tobacco Abuse 19. Insomnia 20. Chronic Pain 21. Sleep Apnea - non-compliance with CPAP 22. Obesity, BMI 38 23. Seasonal Allergies Past surgical history 1. Tonsillectomy 2. Tubal ligation 3. LEEP procedure 4. Port placement and removal 5. Bladder stimulator placement 6. Ear surgery - 1975 7. Tongue Biopsy 2011 8. Left Shoulder Surgery - 2016 9. Loop Recorder - 12/2017 Review of Systems Constitutional: see HPI, malaise, weakness Other ROS PER RN Focused Exam Height, Weight, BMI Height: 5'6.00" Weight: 220lbs. 0.0oz. 99.974247fu; 32.69 BMI Method:Stated Exam Exam Patient acknowledged, consented, and participated in this virtual visit which was conducted using real time audio/video Vital Signs Date Time Temp Pulse Resp B/P (MAP) Pulse Ox O2 Delivery O2 Flow Rate FiO2 06/30/22 08:00 76 108/70 (83) 98 Nasal Cannula 2.00 06/30/22 07:00 76 114/43 (66) 98 Nasal Cannula 2.00 06/30/22 07:00 80 06/30/22 06:33 96 Nasal Cannula 2.00 06/30/22 06:00 72 21 92/52 (65) 96 Nasal Cannula 2.00 06/30/22 05:00 75 35 103/78 (91) 100 Nasal Cannula 2.00 06/30/22 04:00 85 38 125/61 (88) 97 Nasal Cannula 2.00 06/30/22 04:00 Nasal Cannula 2.00 06/30/22 03:45 86 17 106/78 (86) 99 Nasal Cannula 2.00 06/30/22 03:30 87 18 101/76 (91) 97 Nasal Cannula 2.00 06/30/22 03:15 86 15 100/81 (87) 97 Nasal Cannula 2.00 06/30/22 03:00 84 10 132/78 (92) 96 Nasal Cannula 2.00 06/30/22 02:47 81 06/30/22 02:45 109 9 99/59 (72) 97 Nasal Cannula 2.00 06/30/22 02:29 35.6 126 10 115/61 (79) 95 Nasal Cannula 2.00 06/30/22 02:24 134 Height & Weight Height: 5'6.00" Weight: 220lbs. 0.0oz. 99.451316un; 32.69 BMI Method:Stated General Appearance: No Apparent Distress, WD/WN HEENT: PERRL/EOMI, TMs Normal, Normal ENT Inspection, Pharynx Normal, Moist Mucous Membranes Neck: Full Range of Motion, Normal Inspection, Non Tender, Supple, Carotid Bruit Respiratory: Chest Non Tender, Normal Breath Sounds, No Accessory Muscle Use, No Respiratory Distress Cardiovascular: Regular Rate, Rhythm, No Edema, No Gallop, No JVD, No Murmur, Normal Peripheral Pulses Extremity: Normal Capillary Refill, Normal Inspection, Normal Range of Motion, Non Tender, No Calf Tenderness, No Pedal Edema Neurologic/Psychiatric: Alert, Oriented x3, No Motor/Sensory Deficits, Normal Mood/Affect Skin: Normal Color, Warm/Dry Lymphatic: No Adenopathy Other comments PE PER RN Results Lab Laboratory Tests 06/30/22 07:05 Assessment/Plan Assessment/Plan 1. Hemoptysis with underlying lung mass still a consideration for possible underlying malignancy. But patient reports that her biopsy was a negative. 2. Paroxysmal atrial fibrillation currently rate controlled being followed by cardiology service. 3. Minimal troponin elevation being followed by cardiology 4. Lung mass and pulmonary nodule evaluation per , I believe he practices at [facility] in [place]. Recommendations 1. Continue monitor atrial fibrillation and management per cardiology 2. Monitor for any further worsening of hemoptysis 3. If they PET scan is not done I would recommend to do a PET scan and consider VATS guided biopsy. 4. I have requested the RN to get a copy of for lung biopsy report from [facility]. Critical Care: Critically Ill Patient Time spent with patient (mins): 25 MALINI SOTO MD Jun 30, 2022 08:54
[2022-06-30] MEDS ORDERED: ANTACID SUSP 30 ML UDC (MYLANTA) PO PRN (09:00)
[2022-06-30] MEDS: SENNOSIDES 8.6 MG (SENOKOT) TAB PO SCH ×2 (09:00→21:31)
[2022-06-30] MEDS ORDERED: ONDANSETRON 4 MG (ZOFRAN) ORAL DISSOLVE TAB PO PRN (09:00)
[2022-06-30] MEDS ORDERED: diphenhydrAMINE 50 MG/ML INJ (BENADRYL) IVP PRN (09:00)
[2022-06-30] MEDS ORDERED: polyethylene glycoL POWDER 17 GM (MIRALAX) PACK PO PRN (09:00)
[2022-06-30] MEDS: DOCUSATE SODIUM 100 MG (COLACE) CAP PO SCH ×2 (09:00→21:31)
[2022-06-30] MEDS: meTOproloL SUCCINATE 50 MG (TOPROL XL) TAB PO SCH (09:00)
[2022-06-30] MEDS ORDERED: MELATONIN 3 MG TABLET PO PRN (09:00)
[2022-06-30] MEDS ORDERED: meTOprolol TARTRATE 25 MG (LOPRESSOR) TABLET PO SCH (09:00)
[2022-06-30] MEDS ORDERED: diphenhydrAMINE 25 MG TAB (BENADRYL) PO PRN (09:00)
[2022-06-30] MEDS ORDERED: MILK OF MAGNESIA 400 MG/5 ML 30 ML UDC PO PRN (09:00)
[2022-06-30] MEDS ORDERED: LACTULOSE SYRUP 10GM/15ML (ENULOSE) 30ML UDC PO PRN (09:00)
[2022-06-30] MEDS ORDERED: ONDANSETRON 4 MG/2 ML (SDV) Z0FRAN IV PRN (09:00)
[2022-06-30] MEDS ORDERED: CALCIUM CARBONATE 500 MG (TUMS) TAB.CHEW PO PRN (09:00)
[2022-06-30] MEDS ORDERED: ACETAMINOPHEN 325 MG TABLET PO PRN (09:00)
[2022-06-30] MEDS ORDERED: BISACODYL 10 MG SUPP (DULCOLAX) PR PRN (09:00)
[2022-06-30] MEDS: APIXABAN 5 MG (ELIQUIS) TABLET PO SCH ×2 (09:04→20:16)
[2022-06-30] MEDS: DRONEDARONE 400 MG TABLET PO SCH ×2 (09:05→20:16)
[2022-06-30] MEDS: PANTOPRAZOLE 40 MG (PROTONIX) TAB PO SCH (09:05)
--- NOTE | 2022-06-30 09:28 | Wound Care Assessment ---
Wound Care Assessment Date Seen by Provider: Jun 30, 2022 Time Seen by Provider: 09:10 Chief Complaint rash HPI Lori Glez is a 67y/o F w/ a PMH of paroxysmal afib, CAD, CVA, HTN, peripheral edema, chronic urinary incontinence, chronic hemoptysis, RA, and COPD who is being seen today for a rash. Pt has a rash that is present on her left calf, thigh, buttocks, and back. The rash was found incidentally as pt was brought into the ER in [place] and found to have Afib w/ RVR and was transferred to [facility]. Followed by cardiology, eICU, and medicine teams. She recently moved in with her daughter. Daughter had to be out of town for 3 days and pt was at home alone. She has urinary incontinence and was unable to clean herself up with her daughter gone for the 3 days. This lead to the dev elopment of the rash. See HPI Smoking Status: Former Smoker Other Social Hx lives with daughter Review of Systems General: Fatigue Genitourinary: Incontinence Neurological: Weakness Other systems rash on left side Exam Vital Signs Date Time Temp Pulse Resp B/P (MAP) Pulse Ox O2 Delivery O2 Flow Rate FiO2 06/30/22 09:00 82 118/69 (85) 14 Nasal Cannula 2.00 06/30/22 06:00 21 06/30/22 02:29 35.6 Capillary Refill : General Appearance: no apparent distress, obese, other (generalized weakness) Neurologic/Psychiatric: alert, normal mood/affect Skin: rash maculopapular rash present on left lateral posterior calf and thigh, posterior left buttock. Also present on left posterior back. Appears to be a yeast infection. Stage 1 skin changes over sacrum Results Laboratory Tests 06/30/22 07:05: White Blood Count 6.6, Red Blood Count 3.72L, Hemoglobin 9.4L, Hematocrit 30L, Mean Corpuscular Volume 80, Mean Corpuscular Hemoglobin 25, Mean Corpuscular Hemoglobin Concent 32, Red Cell Distribution Width 15.7H, Platelet Count 444H, Mean Platelet Volume 9.4, Immature Granulocyte % (Auto) 1, Neutrophils (%) (Auto) 64, Lymphocytes (%) (Auto) 26, Monocytes (%) (Auto) 10, Eosinophils (%) (Auto) 0, Basophils (%) (Auto) 0, Neutrophils # (Auto) 4.2, Lymphocytes # (Auto) 1.7, Monocytes # (Auto) 0.6, Eosinophils # (Auto) 0.0, Basophils # (Auto) 0.0, Immature Granulocyte # (Auto) 0.0, Neutrophils % (Manual) 60, Lymphocytes % (Manual) 27, Monocytes % (Manual) 9, Eosinophils % (Manual) 1, Basophils % (Manual) 0, Band Neutrophils 3, Hypochromasia SLIGHT, Anisocytosis SLIGHT, Target Cells SLIGHT, Sodium Level 138, Potassium Level 3.4L, Chloride Level 101, Carbon Dioxide Level 24, Anion Gap 13, Blood Urea Nitrogen 16, Creatinine 1.00, Estimat Glomerular Filtration Rate 63, BUN/Creatinine Ratio 16, Glucose Level 130H, Calcium Level 9.5, Corrected Calcium 10.1, Total Bilirubin 0.5, Aspartate Amino Transf (AST/SGOT) 45H, Alanine Aminotransferase (ALT/SGPT) 30, Alkaline Phosphatase 80, Total Creatine Kinase 126, Troponin I 0.029H, Total Protein 7.3, Albumin 3.3 Assessment/Plan/Dx Cutaneous candidiasis Irritant contact dermatitis due to urinary incontinence -start nystatin cream -unable to use diflucan due to adverse interactions w/ multaq -keep area dry of urine if possible -continue to monitor rash, changes to be made if rash does not show improvement -could consider terbinafine as outpatient alternative if topical antifungal not adequate (not on hospital formulary) Afib w/ RVR -managed by cardiology Generalized fatigue -followed by medicine Minimal troponin elevation -managed by cardiology Supervisory-Addendum Brief Verification & Attestation Participated in pt care: history, MDM, physical Personally performed: exam, history, MDM, supervision of care Care discussed with: Medical Student Procedures: n/a Results interpretation: Verified all documentation TOPHER Lynn MD Jun 30, 2022 09:28 SINDHU BHAKTA MD Jun 30, 2022 15:17
--- NOTE | 2022-06-30 09:29 | Diagnostic Imaging Report ---
EXAMINATION: Chest 1 view HISTORY: Dyspnea. Lung mass. COMPARISON: 06/25/2018. FINDINGS: Consolidative opacities are seen in the mid and upper right lung. Lesser patchy opacities are seen in the lung bases. No pleural effusion or pneumothorax. Stable cardiac silhouette. A loop recorder is seen overlying the left chest. IMPRESSION: 1. Consolidative opacities in the mid and upper right lung, which may represent the patient's history of lung mass. Recommend CT of the chest with contrast to further evaluate. Dictated by: Dictated on workstation # [id number]
[2022-06-30] MEDS: VENlafaxine XR 75 MG (EFFEXOR XR) CAP PO SCH (09:36)
[2022-06-30] MEDS: NYSTATIN CREAM (MYCOSTATIN) 30 GM TUBE TP SCH ×3 (09:36→21:39)
[2022-06-30] MEDS ORDERED: RT-ALBUTEROL/IPRATROPIUM 3 ML (DUONEB) VIAL INH PRN (10:15)
--- NOTE | 2022-06-30 11:16 | Physical Therapy Evaluation ---
PT Evaluation-General Medical Diagnosis Admission Date Jun 30, 2022 at 02:16 Medical Diagnosis: A-fib with RVR Onset Date: Jun 30, 2022 Therapy Diagnosis Therapy Diagnosis: generalized weakness/debility Height/Weight Height (Feet): 5 Height (Inches): 6.00 Weight (Pounds): 220 Weight (Ounces): 0.0 Precautions Precautions/Isolations: Standard Precautions Referral Physician: Avinash Reason for Referral: Evaluation/Treatment Medical History Pertinent Medical History: Atrial Fib, CAD, COPD, CVA, GERD, HTN, Neuropathy, Rheumatoid Arthritis, Smoking History of Falls (past yr): No Prior Surgery (last 100 days): No Additional Medical History lung mass Current History Transfer from [facility] secondary to weakness, fever and chills Reviewed History: Yes Social History Home: Apartment Current Living Status: Other Family Entry Into Home: Level Entry Prior Prior Level of Function SCALE: Activities may be completed with or without assistive devices. 8-Pcuqhqtdxj-wlihokv completes the activity by him/herself with no assistance from a helper. 5-Set-up or Clean-up Assistance-helper sets up or cleans up; patient completes activity. [place] assists only prior to or following the activity. 4-Supervision or Touching Assistance-helper provides verbal cues and/or touching/steadying and/or contact guard assistance as patient completes activity. Assistance may be provided throughout the activity or intermittently. 3-Partial/Moderate Assistance-helper does LESS THAN HALF the effort. [place] lifts, holds or supports trunk or limbs, but provides less than half the effort. 2-Substantial/Maximal Assistance-helper does MORE THAN HALF the effort. [place] lifts or holds trunk or limbs and provides more than half the effort. 6-Bymxxvjwy-duzhec does ALL the effort. Patient does none of the effort to complete the activity. Or, the assistance of 2 or more helpers is required for the patient to complete the activity. If activity was not attempted, code reason: 7-Patient Refused. 9-Not Applicable-not attempted and the patient did not perform the activity before the current illness, exacerbation or injury. 10-Not Attempted due to Environmental Limitations-(lack of equipment, weather restraints, etc.). 88-Not Attempted due to Medical Conditions or Safety Concerns. Bed Mobility: 6 Transfers (B,C,W/C): 6 Gait: 6 Indoor Mobility (Ambulation): Independent Prior Devices Use: None PT Evaluation-Current Subjective Patient agrees to PT. Denies FWW or AD use Objective Patient Orientation: Normal For Age Attachments: Oxygen ROM/Strength ROM Lower Extremities bilateral LE WFL Strength Lower Extremities 4-/5 grossly bilateral LE all planes Integumentary/Posture Bowel Incontinence: No Bladder Incontinence: No Posture WFL Neuromuscular (Tone, Coordination, Reflexes) grossly intact Sensory Vision: Functional Hearing: Functional Transfers Lying to Sitting/Side of Bed(Q: 6 Sit to Stand (QC): 4 Chair/Hks-cj-Jhryr Xfer(QC): 4 Gait Mode of Locomotion: Walk Anticipated Mode of Locomotion: Walk Walk 10 feet (QC): 4 Walk 50 ft with 2 Turns(QC): 4 Distance: 50' Gait Assistive Device: None Comments/Gait Description no deviation Balance Sitting Static: Normal Sitting Dynamic: Normal Standing Static: Normal Standing Dynamic: Normal Assessment/Needs Patient dons socks with set up. Patient is SBA with mobility for safety. Patient will benefit from skilled PT to address functional strength and mobility to ensure safe return to home at maximum LOF. Rehab Potential: Guarded PT Shelter Goals Publicity Person Goals PT Publicity Person Goals Time Frame: Jul 11, 2022 Roll Left & Right (QC): 6 Sit to Lying (QC): 6 Lying-Sitting on Side/Bed(QC): 6 Sit to Stand (QC): 6 Chair/Stq-kv-Resae Xfer(QC): 6 Toilet Transfer (QC): 6 Walk 10 feet (QC): 6 Walk 50ft with 2 Turns (QC): 6 Walk 150 ft (QC): 6 PT Plan Problem List Problem List: Activity Tolerance, Functional Strength, Safety, Balance, Gait, Transfer Treatment/Plan Treatment Plan: Continue Plan of Care Treatment Plan: Education, Functional Activity [place], Functional Strength, Gait, Safety, Therapeutic Exercise, Transfers Treatment Duration: Jul 11, 2022 Frequency: 6 times per week Estimated Hrs Per Day: .25 hour per day Patient and/or Family Agrees t: Yes Time/GCodes Time In: 1000 Time Out: 1017 Total Billed Treatment Time: 17 Total Billed Treatment 1 visit EVModC 17 min FIDEL JARQUIN PT Jun 30, 2022 11:16
--- NOTE | 2022-06-30 13:55 | Occupational Therapy Eval ---
OT Evaluation-General/PLF Medical Diagnosis Admission Date Jun 30, 2022 at 02:16 Medical Diagnosis: A-fib with RVR Onset Date: Jun 30, 2022 Therapy Diagnosis Therapy Diagnosis: Impaired ADLs Height/Weight Height (Feet): 5 Height (Inches): 6.00 Weight (Pounds): 220 Weight (Ounces): 0.0 Precautions Precautions/Isolations: Fall Prevention, Standard Precautions, Pressure Ulcer Referral Physician: Avinash Medical History Pertinent Medical History: Atrial Fib, CAD, COPD, CVA, GERD, HTN, Neuropathy, Rheumatoid Arthritis, Smoking Current History Pt came to [facility] ER for weakness, fever and chillls and coughing up blood. Once she arrived they noticed a rash on the L side of her buttocks and down her leg. The rash was found to be from urine incontinence. She was transferred to [facility]. She lives with her daughter and her grandchildren in a ground level apartment. She needed assistance with ADLs. Unsure how much assistance family provides. IADLs were taken care of by her daughter and grandchildren. She stated that one of the grandson's ensures that she has food and a drink at home when her daughter is away for weekends. Reviewed History: Yes Social History Home: Apartment Current Living Status: Other Family Entry Into Home: Level Entry ADL-Prior Level of Function SCALE: Activities may be completed with or without assistive devices. 6-Kzaxtvcsdt-npmrvac completes the activity by him/herself with no assistance from a helper. 5-Set-up or Clean-up Assistance-helper sets up or cleans up; patient completes activity. [place] assists only prior to or following the activity. 4-Supervision or Touching Assistance-helper provides verbal cues and/or touching/steadying and/or contact guard assistance as patient completes activity. Assistance may be provided throughout the activity or intermittently. 3-Partial/Moderate Assistance-helper does LESS THAN HALF the effort. [place] lifts, holds or supports trunk or limbs, but provides less than half the effort. 2-Substantial/Maximal Assistance-helper does MORE THAN HALF the effort. [place] lifts or holds trunk or limbs and provides more than half the effort. 5-Ugcoavpkm-mhhpjq does ALL the effort. Patient does none of the effort to com plete the activity. Or, the assistance of 2 or more helpers is required for the patient to complete the activity. If activity was not attempted, code reason: 7-Patient Refused. 9-Not Applicable-not attempted and the patient did not perform the activity before the current illness, exacerbation or injury. 10-Not Attempted due to Environmental Limitations-(lack of equipment, weather restraints, etc.). 88-Not Attempted due to Medical Conditions or Safety Concerns. Self Care: Needed Some Help Functional Cognition: Needed Some Help Drive Self: No OT Current Status Subjective Pt was in bed upon arrival. She stated feeling very cold. She had yet to eat lunch. She agreed to a therapy eval. She denied going to the chair secondary to just getting back in bed. Appearance Pt left sitting up in bed with her food in front of her. All needs within reach. Mental Status/Objective Patient Orientation: Person Attachments: IV, Oxygen (2 Liters), Telemetry Current Glasses/Contacts: Yes Hearing Aids: No Upper Extremity ROM WFL ~160 degrees Upper Extremity Strength WFL Shoulder strength: 4/5 Porcelain Mixer strength: WFL ADL-Treatment Eating (QC): 5 On/Off Footwear (QC): 5 (per PT eval) Pt declined all ADL tasks, but therapist set up lunch upon completion of evaluation. Monitors showed a decrease and major fluctuation in O2 (84-99) when talking and performing any movement. Pursed lip breathing was educated and demonstrated. Bed mobility from supine <> seated was good. Pt sat at EOB with good seated balance for ~2-3 min. Per PT she was set up for donning socks. Supervision for sit <> stand to move up HOB. Poor eccentric control shown by flopping down onto bed, falling back a little with self-correction to sit up rig ht. Education OT Patient Education: Correct positioning, Energy conservation, Modified ADL techniques, Progress toward Goal/Update tx plan, Purpose of tx/functional activities, Reviewed precautions, Rehab process Teaching Recipient: Patient Teaching Methods: Demonstration, Discussion Response to Teaching: Verbalize Understanding, Return Demonstration OT Butcher All Round Goals Care Home Goals Time Frame: Jul 10, 2022 Toileting Hygiene (QC): 4 Shower/Bathe Self (QC): 3 Upper Body Dressing (QC): 5 Lower Body Dressing (QC): 4 On/Off Footwear (QC): 5 Additional Goals: 1-Demonstrate ADL Tasks, 2-Verbalize Understanding, 3-I mproveStrength/[place] 1=Demonstrate adherence to instructed precautions during ADL tasks. 2=Patient will verbalize/demonstrate understanding of assistive devices/modifications for ADL. 3=Patient will improve strength/tolerance for activity to enable patient to perform ADL's. OT Education/Plan Problem List/Assessment Assessment: Decreased Activ Tolerance, Decreased Safety Aware, Impaired Cognition, Impaired I ADL's, Impaired Self-Care Skills Discharge Recommendations Plan/Recommendations: Continue POC Therapy Discharge Recommendati: Intermittent Supervision (Pt demonstrates poor initiation with ADL tasks. When daughter is away, pt remains seated through incontinence.), Post Acute OT Treatment Plan/Plan of Care Treatment,Training & Education: Yes Patient would benefit from OT for education, treatment and training to promote independence in ADL's, mobility, safety and/or upper extremity function for ADL's. Plan of Care: ADL Retraining, Caregiver Training, Functional Mobility, Group E xercise/Act as Ind, UE Funct Exercise/Act, UE Neuromus Re-Ed/Coord Treatment Duration: Jul 10, 2022 Frequency: 3 times per week (3-5x/week) Estimated Hrs Per Day: .25 hour per day Agreement: Yes Rehab Potential: Guarded Time/GCodes Start Time: 13:30 Stop Time: 13:43 Total Time Billed (hr/min): 13 Billed Treatment Time 1 visit Chhaya Vazquez OT Jun 30, 2022 13:55
--- NOTE | 2022-06-30 14:39 | History & Physical-Hospitalist ---
SIRISHA BETANCUR 06/30/22 1439: History of Present Illness HPI/Chief Complaint Patient is a 67 old female with past medical history of A-fib, HTN, COPD, lung mass, and hyperlipidemia presented to [facility] in [place] last night 06-29-2022 for bladder and bowel incontinence and SOB. Patient was found by daughter after 2 days of being in her home unable to get out of bed, laying in her own urine and feces. Daughter subsequently brought her into ER. She was noted to have a HR of 160 upon arrival to the hospital. An EKG was obtained and IV was started. She was found to be in A-fib RVR. Patient was then placed on diltiazem which helped return her to NSR. Her initial labratory work showed patient to have a elevated of troponin (17.3) and elevated BNP. Her labs also showed hyponatermia and hypokalemia. Potassium was ordered and replaced by Dr. Graham. She was then transferred to [facility] to be seen by Dr. Mendoza. Patient was found today to be having hemoptysis. She had a CT scan done on 03/05/2022, which showed pleural space lung mass suspicious for lung cancer and multiple indeterminate pulmonary nodules suspicious for metastatic disease. There was a subsequent biopsy performed, patient claims the biopsy was negative for malignancy. Results of biopsy have yet to be seen. Cardiology has put patient on apixaban, metoprolol, and dronedarone. Patient is alert and orientated today. She has conversational dyspnea, is currently on 2L nasal cannula. She has no complaints of pain at this time. She complains of rash on her lateral left lower leg and gluteal region from sitting in her waste. Wound care has been consulted for rash. Patient was found to have a bladder stimulator, but states the batteries are . Contacting daughter to get battery. Source: patient, RN/MD, old records Date Seen 06/30/22 Attending Physician Anselmo Cintron - [facility] PCP Admitting Physician: Igor Graham MD Attending Physician: Lucy Chavez DO Referring Physician Date of Admission Jun 30, 2022 at 02:16 Home Medications & Allergies Home Medications Reviewed patient Home Medication Reconciliation performed by pharmacy medication reconciliations cotton program technician and/or nursing. Patients Allergies have been reviewed. Allergies Allergies Coded Allergies methylprednisolone (Verified Allergy, Severe, FACE SWELLING, 05/18/19) Iodinated Contrast- Oral and IV Dye (Verified Allergy, Intermediate, 05/18/19) doxycycline (Unverified Allergy, Intermediate, FACIAL SWELLING, 05/18/19) fluticasone furoate (Verified Allergy, Intermediate, N/V, 05/18/19) paroxetine (Verified Allergy, Intermediate, 05/18/19) vilanterol (Verified Allergy, Intermediate, N/V, 05/18/19) codeine (Verified Allergy, Unknown, HIVES, Has received morphine in the past w /o issue, 05/18/19) fluticasone (Verified Allergy, Unknown, 05/18/19) hydrocodone (Unverified Adverse Reaction, Intermediate, DYSPNEA, HIVES, 05/18/19) oxybutynin (Verified Adverse Reaction, Mild, sores in mouth, 05/18/19) Uncoded Allergies PAPER TAPE ( Allergy, Unknown, BLISTERS/SORES, 07/10/15) Past Lryjmrg-Hgesor-Hauqlq Hx Patient Social History Marrital Status: Tobacco Use?: Yes Tobacco type used: Cigarettes Smoking Status: Former Smoker (Quit 3 weeks ago) Substance use?: No Alcohol Use?: No Pt feels they are or have been: No Immunizations Up To Date Date of Influenza Vaccine: Aug 18, 2017 Tetanus Booster (TDap): Unknown Date of Pneumonia Vaccine: Aug 18, 2017 Seasonal Allergies Seasonal Allergies: Yes Current Status Advance Directives: No Communicates: Verbally Primary Language: Monegas[place] Preferred Spoken Language: Monegasque Is interpretation needed?: No Implanted or Applied Medical D: None Past Medical History Surgeries: Bladder Surgery (Bladder stimulator), Ear Surgery, Orthopedic (Left shoulder surgery), Tubal Ligation Asthma, Pneumonia, Sleep Apnea, Emphysema Currently Using CPAP: Yes (LOST IT) Currently Using BIPAP: No Coronary Artery Disease, High Cholesterol, Hypertension Neuropathy, Stroke, 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 Rheumatoid arthritis 2. COPD 3. Morbid obesity 4. Depression, anxiety with associated agoraphobia 5. Hypertension 6. Hypercholesterolemia 7. Gastroesophageal reflux disease 8. Irritable bowel syndrome 9. Chronic urinary incontinence 10. CVA 11. Moderate, Non-obstructive CAD 12. Asthma 13. COPD 14. Fatty Liver Disease 15. Peripheral Neuropathy 16. Prediabetes 17. Osteoarthritis 18. Tobacco Abuse 19. Insomnia 20. Chronic Pain 21. Sleep Apnea - non-compliance with CPAP 22. Obesity, BMI 38 23. Seasonal Allergies Past surgical history 1. Tonsillectomy 2. Tubal ligation 3. LEEP procedure 4. Port placement and removal 5. Bladder stimulator placement 6. Ear surgery - 1975 7. Tongue Biopsy 2011 8. Left Shoulder Surgery - 2016 9. Loop Recorder - 12/2017 Family Medical History Dementia 19 MOTHER FH: prostate cancer son, Onset:25's - 30 Cancer, Psychiatric Problems Review of Systems Constitutional: malaise, weakness EENTM: No hearing loss, No nose pain Respiratory: hemoptysis, phlegm, short of breath Cardiovascular: No chest pain, No palpitations Gastrointestinal: No abdominal pain; diarrhea Genitourinary: incontinence Musculoskeletal: No joint swelling, No neck pain Skin: No change in hair/nails; rash (Left lateral lower leg and gluteal ) Psychiatric/Neurological: Anxiety, Depressed, Weakness Physical Exam Physical Exam Vital Signs Vital Signs - First Documented 06/30/22 06/30/22 02:24 02:29 Temp 35.6 Pulse 134 Resp 10 B/P (MAP) 115/61 (79) Pulse Ox 95 O2 Delivery Nasal Cannula O2 Flow Rate 2.00 Capillary Refill : Height, Weight, BMI Height: 5'6.00" Weight: 220lbs. 0.0oz. 99.511907oc; 32.69 BMI Method:Stated General Appearance: Chronically ill, Mild Distress, Obese HEENT: Moist Mucous Membranes; No Scleral Icterus (L), No Scleral Icterus (R) Neck: Full Range of Motion, Non Tender Respiratory: Chest Non Tender; No Lungs Clear, No No Accessory Muscle Use Cardiovascular: Regular Rate, Rhythm, No Gallop, No JVD Gastrointestinal: Non Tender, Soft Rectal: Deferred Back: Normal Inspection, No CVA Tenderness Extremity: Normal Capillary Refill, Swelling Neurologic/Psychiatric: Alert, Oriented x3 Skin: Normal Color, Rash (Excoriated rash of gluteal region and left lateral lower leg) Lymphatic: No Adenopathy Results Results/Procedures Labs Laboratory Tests 06/30/22 07:05 Patient resulted labs reviewed. Assessment/Plan Assessment and Plan Paroxysmal A-fib with RVR- Currently Resolved Cardiology consulted- was placed on Diltiazem Maintain on eliquis per cardiology Start on Dronedarone- percardiology Lung Mass with Hemoptysis CT chest done 03-05-2022-showing suspicious lung mass. Along with multiple in determinate pulmonary nodules suspicious for metastatic disease. Biopsy was performed, but without results Followed by Dr. Dover Urinary Incontinence Insert Rosales Catheter Check working order of bladder stimulator, obtain battery Elevated troponin Cardiolog consulted Monitor and trend troponin Last stress test was done in April 2022 showing minimal decrease uptake at the inferoapical segment with mild reversibility, overall no significant ischemia was noted, stress score 5, SDS 5, ejection fraction 83%. Debility Contact Dermatitis Wound Care Consulted CAD Continue to monitor Cardiology consulted GERD Maintain Pantaprozole HTN Cardiology consulted-started on BB Peripheral Edema Cardiology ordered Echocardiogram 2D Hyperlipidemia Monitor Lipids Hypokalemia Monitor and replace Anxiety Restart venlafaxine Rheumatoid arthritis Obesity History of Stroke-Last 2016 Maintain on eliquis Bilateral carotid stenosis, US done in November 2019 LUCY CHAVEZ DO 07/01/22 0550: History of Present Illness HPI/Chief Complaint CC: Afib with RVR HPI: This is a 67 yr old female with known afib. She came from [place] with afib. Pt is maintained on Eliquis and placed on Cardizem. She is now at normal sinus rhythm, but sustained NSTEMI. She is having some bowel and bladder dysfunction. She is having some hemoptysis. She has had a bronchoscopy with biopsy before. Source: patient, RN/MD, old records Time Seen by a Provider: 10:00 Past Mkkcwyb-Ezrzds-Otsezp Hx Family Medical History Dementia 19 MOTHER FH: prostate cancer son, Onset:25's - 30 Assessment/Plan Admission Diagnosis Assessment: AF RVR now NSR after Cardizem UTI acute Severe debility Plan: ICU now but move to 4th floor Admission Status: Inpatient Order (span 2 midnights) Reason for Inpatient Admission: af rvr Supervisory-Addendum Brief Verification & Attestation Participated in pt care: history, MDM, physical Personally performed: exam, history, MDM, supervision of care Care discussed with: Medical Student Procedures: n/a Results interpretation: Verified all documentation Verification and Attestation of Medical Student E/M Service A medical student performed and documented this service in my presence. I reviewed and verified all information documented by the medical student and made modifications to such information, when appropriate. I personally performed the physical exam and medical decision making. Lucy Chavez, Jul 01, 2022,05:50 SIRISHA BETANCUR Jun 30, 2022 14:39 LUCY CHAVEZ DO Jul 01, 2022 05:50
[2022-06-30] MEDS: RT-ALBUTEROL/IPRATROPIUM 3 ML (DUONEB) VIAL INH SCH ×2 (15:05→21:28)
[2022-06-30] MEDS ORDERED: CIDE500T PO (15:12)
[2022-06-30] MEDS ORDERED: TRAM50TA3 PO (15:12)
[2022-06-30] MEDS ORDERED: DOCU-143 PO (15:12)
[2022-06-30] MEDS ORDERED: BUDE10.22 INH (15:12)
[2022-06-30] MEDS ORDERED: VENL150T PO (15:12)
[2022-06-30 16:17] LABS: BILIRUBIN,URINE NEGATIVE (NEGATIVE); CLARITY,URINE CLOUDY; COLOR,URINE YELLOW; GLUCOSE, URINE (UA) NEGATIVE (NEGATIVE); KETONES,URINE NEGATIVE (NEGATIVE); LEUKOCYTE ESTERASE ,URINE 1+ (NEGATIVE); NITRITE,URINE POSITIVE (NEGATIVE); PROTEIN,URINE 1+ (NEGATIVE)
[2022-06-30 16:27] LABS: BACTERIA,URINE LARGE /HPF; YEAST,URINE FEW /HPF
[2022-06-30] MEDS: OFLOXACIN 0.3% OPHTH SOLN 5 ML OP SCH ×2 (17:41→20:16)
[2022-06-30] MEDS ORDERED: DOCUSATE SODIUM 100 MG (COLACE) CAP PO PRN (17:45)
[2022-06-30] MEDS ORDERED: NON-FORMULARY MEDICATION 1 EA EA (Dicyclomine HCl 20 MG) PO PRN (17:45)
[2022-06-30] MEDS ORDERED: RT-ALBUTEROL SULF 2.5 MG/3 ML PRE-MIX VIAL IH PRN (17:45)
[2022-06-30] MEDS ORDERED: DICYCLOMINE 10 MG (BENTYL) CAP PO PRN (18:15)
[2022-06-30] MEDS: cefTRIAXone 1 GM PRE-MIX 50 ML IV SCH (19:08)
[2022-06-30] MEDS: ROSUVASTATIN 10 MG (CRESTOR) TABLET PO SCH (20:16)
[2022-06-30] MEDS: LORATADINE (CLARITIN) 10 MG TAB PO SCH (20:16)
[2022-06-30] MEDS ORDERED: TOFA11TA PO (20:26)
[2022-06-30] MEDS ORDERED: NON-FORMULARY MEDICATION 1 EA EA (Simvastatin 40 MG) PO SCH (21:00)
[2022-06-30] MEDS ORDERED: CIPROFLOXACIN 0.3% (CILOXAN) 2.5 ML BTL OP SCH (21:00)
[2022-06-30] MEDS ORDERED: NON-FORMULARY MEDICATION 1 EA EA (Budesonide/Formoterol Fumarate (Symbicort 80-4.5 Mcg Inh INH SCH (21:00)
[2022-06-30] MEDS ORDERED: RT--FLUTICASONE/SALMETEROL 113-14 (AIRDUO RespiCLICK) IH SCH (21:00)
[2022-06-30] MEDS ORDERED: NON-FORMULARY MEDICATION 1 EA EA (Levocetirizine Dihydrochloride 5 MG) PO SCH (21:00)
[2022-06-30] MEDS: RT-BUDESONIDE NEBS 0.5 MG/2ML (PULMICORT) AMP INH SCH (21:28)
[2022-07-01] VITALS (20 sets, daily range): BP systolic 89–126; BP diastolic 45–111
[2022-07-01] MEDS: RT-ALBUTEROL/IPRATROPIUM 3 ML (DUONEB) VIAL INH SCH ×4 (02:28→21:02)
[2022-07-01 05:13] LABS: BASOPHILS % (AUTO) 0 % (0-10); EOSINOPHILS % (AUTO) 0 % (0-10); HEMATOCRIT 27 % (35-52); HEMOGLOBIN 8.5 g/dL (11.5-16.0); LYMPHOCYTES # (AUTO) 1.2 10^3/uL (1.0-4.0); LYMPHOCYTES % (AUTO) 14 % (12-44); MEAN CORPUSCULAR HEMOGLOBIN 25 pg (25-34); MEAN CORPUSCULAR HGB CONC 32 g/dL (32-36); MEAN CORPUSCULAR VOLUME 78 fL (80-99); MEAN PLATELET VOLUME 9.3 fL (9.0-12.2); MONOCYTES # (AUTO) 0.8 10^3/uL (0.0-1.0); MONOCYTES % (AUTO) 9 % (0-12); NEUTROPHILS # (AUTO) 6.2 10^3/uL (1.8-7.8); NEUTROPHILS % (AUTO) 76 % (42-75); PLATELET COUNT 451 10^3/uL (130-400); WHITE BLOOD COUNT 8.3 10^3/uL (4.3-11.0)
[2022-07-01 05:37] LABS: POTASSIUM 3.4 MMOL/L (3.6-5.0)
[2022-07-01] MEDS: VENlafaxine XR 75 MG (EFFEXOR XR) CAP PO SCH (05:37)
[2022-07-01 05:38] LABS: CALCIUM 9.2 MG/DL (8.5-10.1)
[2022-07-01 05:39] LABS: TOTAL PROTEIN 6.8 GM/DL (6.4-8.2)
[2022-07-01 05:41] LABS: BILIRUBIN,TOTAL 0.8 MG/DL (0.1-1.0)
[2022-07-01 05:43] LABS: CREATININE SERUM 0.82 MG/DL (0.60-1.30)
[2022-07-01 05:45] LABS: MAGNESIUM 1.9 MG/DL (1.6-2.4)
[2022-07-01] MEDS ORDERED: dilTIAZem DRIP PRE-MIX 125 ML IV ONE (07:18)
[2022-07-01] MEDS ORDERED: dilTIAZem DRIP PRE-MIX 125 ML IV SCH (07:30)
[2022-07-01] MEDS: PANTOPRAZOLE 40 MG (PROTONIX) TAB PO SCH (08:05)
[2022-07-01] MEDS: OFLOXACIN 0.3% OPHTH SOLN 5 ML OP SCH ×3 (08:05→20:50)
[2022-07-01] MEDS: SENNOSIDES 8.6 MG (SENOKOT) TAB PO SCH ×2 (08:05→20:46)
[2022-07-01] MEDS: APIXABAN 5 MG (ELIQUIS) TABLET PO SCH ×2 (08:05→20:44)
[2022-07-01] MEDS: DRONEDARONE 400 MG TABLET PO SCH (08:05)
[2022-07-01] MEDS: NYSTATIN CREAM (MYCOSTATIN) 30 GM TUBE TP SCH ×3 (08:05→20:50)
[2022-07-01] MEDS: meTOproloL SUCCINATE 50 MG (TOPROL XL) TAB PO SCH (08:05)
[2022-07-01] MEDS: DOCUSATE SODIUM 100 MG (COLACE) CAP PO SCH ×2 (08:06→21:22)
[2022-07-01] MEDS ORDERED: AMIODARONE FOR BOLUS 150 MG in NS (IVPB) 100 ML IV ONE (08:30)
--- NOTE | 2022-07-01 08:52 | Tele-ICU Progress Note ---
Subjective Date Seen by a Provider: Jul 01, 2022 Time Seen by a Provider: 08:49 Subjective/Events-last exam (Tele-ICU Physician , progress note) Available chart/ vitals / labs / Images reviewed H&P is from ER notes Patient's information available about PMH, allergy reviewed in EMR. ROS as per chart and RN report Video assessment done using teleICU camera, rest of exam as per RN Discussed with RN. This patient who has a history of hypertension, stroke in the past for which she has been on apixaban recently moved with her daughter as she is unable to care herself was found on the floor and feces by her daughter and brought to the emergency room where she is found to have atrial fibrillation with rapid ventricular rate. Initially apparently she is somewhat disoriented but now she is completely oriented. She has a history of lung mass with what looks like a metastatic disease on the CT of the chest previously for which she underwent lung biopsy at the [facility]. According to her her biopsy was negative for malignancy but exact etiology not clear and we do not have the report yet. She is started on Cardizem drip for rate which her heart rate controlled and currently converted to sinus rhythm. Patient is seen by cardiology and restarted on apixaban. Currently she is awake alert oriented. In no acute distress but complains of weakness and fatigue. also has intermittent hemoptysis. She had apparently bronchoscopic guided lung biopsy. Sepsis Event Evaluation Height, Weight, BMI Height: 5'6.00" Weight: 220lbs. 0.0oz. 99.212299hu; 33.55 BMI Method:Stated Exam Exam Patient acknowledged, consented, and participated in this virtual visit which was conducted using real time audio/video Vital Signs Date Time Temp Pulse Resp B/P (MAP) Pulse Ox O2 Delivery O2 Flow Rate FiO2 07/01/22 08:26 156 105/82 07/01/22 08:00 149 42 111/81 (91) 94 Nasal Cannula 2.00 07/01/22 08:00 36.2 111 24 112/55 (74) 93 Nasal Cannula 2.00 07/01/22 08:00 Nasal Cannula 2.00 07/01/22 07:24 112/55 07/01/22 07:00 117 42 114/69 (84) 92 Nasal Cannula 2.00 07/01/22 07:00 98 07/01/22 04:05 Nasal Cannula 2.00 07/01/22 04:00 102 43 126/64 (84) 84 Nasal Cannula 2.00 07/01/22 02:26 96 Nasal Cannula 2.00 07/01/22 01:00 92 07/01/22 00:00 96 43 119/59 (79) 96 Nasal Cannula 2.00 06/30/22 23:46 Nasal Cannula 2.00 06/30/22 21:28 100 Nasal Cannula 2.00 06/30/22 20:00 Nasal Cannula 2.00 06/30/22 20:00 96 42 118/59 (78) 99 Nasal Cannula 2.00 06/30/22 19:00 94 06/30/22 17:00 91 25 96/63 (74) 99 Nasal Cannula 2.00 06/30/22 16:34 37.3 06/30/22 16:00 89 26 121/65 (83) 98 Nasal Cannula 2.00 06/30/22 16:00 Nasal Cannula 2.00 06/30/22 15:06 98 Nasal Cannula 2.00 06/30/22 15:00 85 13 119/62 (81) 100 Nasal Cannula 2.00 06/30/22 14:00 86 17 105/70 (82) 100 Nasal Cannula 2.00 06/30/22 13:00 87 06/30/22 13:00 92 20 123/112 (116) 93 Nasal Cannula 2.00 06/30/22 12:00 Nasal Cannula 2.00 06/30/22 12:00 80 35 102/76 (85) 90 Nasal Cannula 2.00 06/30/22 11:30 36.3 06/30/22 11:00 71 24 119/71 (87) 100 Nasal Cannula 2.00 06/30/22 10:01 35.6 82 14 06/30/22 10:00 84 29 125/51 (75) 100 Nasal Cannula 2.00 06/30/22 09:00 82 14 118/69 (85) 98 Nasal Cannula 2.00 I & O 07/01/22 07:00 Intake Total 1080 ml Output Total 2125 ml Balance -1045 ml Height & Weight Height: 5'6.00" Weight: 220lbs. 0.0oz. 99.012990tq; 33.55 BMI Method:Stated General Appearance: Chronically ill, Mild Distress, Obese HEENT: Moist Mucous Membranes; No Scleral Icterus (L), No Scleral Icterus (R) Neck: Full Range of Motion, Non Tender Respiratory: Chest Non Tender; No Lungs Clear, No No Accessory Muscle Use Cardiovascular: Regular Rate, Rhythm, No Gallop, No JVD Extremity: Normal Capillary Refill, Swelling Neurologic/Psychiatric: Alert, Oriented x3 Skin: Normal Color, Rash (Excoriated rash of gluteal region and left lateral lower leg) Lymphatic: No Adenopathy Results Lab Laboratory Tests 06/30/22 07:05 07/01/22 04:45 Assessment/Plan Assessment/Plan 1. Hemoptysis with underlying lung mass still a consideration for possible underlying malignancy. But patient reports that her biopsy was a negative. 2. Paroxysmal atrial fibrillation currently rate controlled being followed by cardiology service. 3. Minimal troponin elevation being followed by cardiology 4. Lung mass and pulmonary nodule evaluation per , I believe he practices at [facility] in [place]. Recommendations 1. Continue monitor atrial fibrillation and management per cardiology 2. Monitor for any further worsening of hemoptysis 3. If they PET scan is not done I would recommend to do a PET scan and consider VATS guided biopsy. 4. I have requested the RN to get a copy of for lung biopsy report from [facility]. Critical Care: Critically Ill Patient Time spent with patient (mins): 20 MALINI SOTO MD Jul 01, 2022 08:52
[2022-07-01] MEDS ORDERED: NON-FORMULARY MEDICATION 1 EA EA (Venlafaxine HCl (Venlafaxine HCl ER) 300 MG) PO SCH (09:00)
[2022-07-01] MEDS ORDERED: PATIENT MAY USE OWN MED,SINGLE MED PO SCH (09:00)
[2022-07-01] MEDS: RT-BUDESONIDE NEBS 0.5 MG/2ML (PULMICORT) AMP INH SCH ×2 (10:00→21:06)
--- NOTE | 2022-07-01 10:37 | Cardiology Progress Note ---
Subjective Date Seen by Provider: Jul 01, 2022 Time Seen by Provider: 10:35 Subjective/Events-last exam Patient was seen at bedside, laying down comfortably Has been in and out of paroxysmal atrial fibrillation/flutter with rapid ventricular response Started on Cardizem drip, still tachycardic. Review of Systems General: No Chills, No Night Sweats; Fatigue; No Malaise, No Appetite, No Other HEENT: No Head Aches, No Visual Changes, No Eye Pain, No Ear Pain, No Dysp hasia, No Sinus Congestion, No Post Nasal Drip, No Sore Throat, No Other Pulmonary: No Dyspnea, No Cough, No Pleuritic Chest Pain, No Other Cardiovascular: No: Chest Pain, Palpitations, Orthopnea, Paroxysmal Noc. Dyspnea, Edema, Lt Headedness, Other Objective-Cardiology Exam Last Set of Vital Signs Vital Signs 07/01/22 07/01/22 08:26 10:00 Pulse 156 B/P (MAP) 105/82 Pulse Ox 94 O2 Delivery Nasal Cannula O2 Flow Rate 3.00 I&O Intake and Output 06/30/22 23:59 Intake Total 920 ml Output Total 750 ml Balance 170 ml Intake Oral 920 ml Output Urine Total 750 ml # Voids 1 Daily Weight Change No General: Alert, Oriented X3, Cooperative HEENT: Atraumatic, PERRLA Neck: Supple, No JVD, No Thyromegaly Lungs: Clear to Auscultation, Normal Air Movement Heart: Normal S1, Normal S2, No Murmurs, Other (Tachycardia) Abdomen: Normal Bowel Sounds, Soft, No Tenderness, No Hepatosplenomegaly, No Masses Extremities: No Clubbing, No Cyanosis, No Edema, Normal Pulses, No Tenderness/Swelling Skin: No Rashes, No Breakdown, No Significant Lesion Neuro: Normal Gait, Normal Speech, Strength at 5/5 X4 Ext, Normal Tone, Sensation Intact Psych/Mental Status: Mental Status NL, Mood NL Results Lab Laboratory Tests 07/01/22 04:45 A/P-Cardiology Admission Diagnosis Hemoptysis Paroxysmal atrial fibrillation Hypertension Hyperlipidemia Assessment/Plan Generalized fatigue and loss of energy, right upper lobe infiltrate, chronic hemoptysis Managed by primary care physician Paroxysmal atrial fibrillation,/flutter Patient had history of loop recorder documented atrial fibrillation, maintained on Eliquis Has been having multiple episodes of atrial fibrillation/flutter, patient converted to sinus rhythm after Valsalva maneuver but did not maintain sinus rhythm and returned to atrial fibrillation I will load her with 150 mg of amiodarone IV and I will continue on Multaq at this time Continue on Cardizem for rate control for now. [id number] score of 4, yearly risk of stroke without oral anticoagulation is 4%. Continue on Eliquis Recurrent hemoptysis, has been following with Dr. Lopez Reported that she had bronchoscopy and there was a lung mass and lymphadenopathy but according to the patient it was benign after biopsy. Followed by Dr. Lopez Minimal troponin elevation, we will continue to monitor the trend. Patient denied any active chest pain. Last stress test was done in April 2022 showing minimal decrease uptake at the inferoapical segment with mild reversibility, overall no significant ischemia was noted, stress score 5, SDS 5, ejection fraction 83%. Continue to monitor. Nonobstructive coronary artery disease per cardiac catheterization 2010 Last stress test was done in April 2022 as described above. Continue to monitor History of recurrent stroke, multiple stroke reported in the past, last stroke occurred in March 2017 and received TPA in [facility], second stroke occurred in August 2017, CT was reported as periventricular and deep white matter hypodensity suggesting chronic microvascular ischemic changes. Reveal device was implanted and showed episodes of atrial fibrillation, is now maintained on Eliquis GERD, maintained on Protonix, no recent endoscopy, has seen Dr. Siani in the past, will refer back to Dr. Saini for further evaluation. History of recurrent sinus tachycardia, maintained on beta-blockers and tolerating medication well. Peripheral edema, reporting improvement. 2-D echocardiogram in August 2017 within normal limits. I will repeat 2D echo Hypertension, monitor blood pressure Hyperlipidemia, intolerant to statin, monitor lipids Chronic dizziness, reporting improvement. History of syncope with negative tillt table test, test was done in December 2011, no further syncopal episodes were noted. Continue to monitor. Rheumatoid arthritis Obesity, BMI is 32, educated on weight loss Mild bilateral carotid stenosis, last ultrasound was done in November 2019, continue to monitor. Ex tobaccoism NADIYA SCOTT MD Jul 01, 2022 10:37
--- NOTE | 2022-07-01 11:02 | Progress Note - Hospitalist ---
SIRISHA BETANCUR 07/01/22 1102: Subjective HPI/CC On Admission Date Seen by Provider: Jul 01, 2022 Time Seen by Provider: 10:55 CC: Afib with RVR HPI: This is a 67 yr old female with known afib. She came from [place] with afib. Pt is maintained on Eliquis and placed on Cardizem. She is now at normal sinus rhythm, but sustained NSTEMI. She is having some bowel and bladder dysfunction. She is having some hemoptysis. She has had a bronchoscopy with biopsy before. Subjective/Events-last exam Patient is back in A-fib RVR Patient is having conversational dyspnea Is still experiencing hemoptysis Still very weak, was able to sleep Alert and orientated X3 Has no complaints of pain Daughter was unable to bring battery for her bladder stimulator Is eating well Would like to restart her Xyzal and Xeljanz, was counseled regarding their current status Objective Exam Vital Signs Vital Signs Date Time Temp Pulse Resp B/P (MAP) Pulse Ox O2 Delivery O2 Flow Rate FiO2 07/01/22 10:00 94 Nasal Cannula 3.00 07/01/22 08:26 156 105/82 07/01/22 08:00 42 07/01/22 08:00 36.2 Capillary Refill : General Appearance: Chronically ill, Mild Distress, Obese HEENT: PERRL/EOMI; No Scleral Icterus (L), No Scleral Icterus (R) Neck: Full Range of Motion, Non Tender Respiratory: Chest Non Tender, No Accessory Muscle Use Cardiovascular: Irregularly Irregular (A-fib RVR), Tachycardia Gastrointestinal: Non Tender, Soft Rectal: Deferred Back: Normal Inspection, No CVA Tenderness Extremity: Normal Capillary Refill, Normal Range of Motion Neurologic/Psychiatric: Alert, Oriented x3 Skin: Normal Color, Warm/Dry, Rash (Left lateral lower leg and gluteal region contact dematits improving) Lymphatic: No Adenopathy Results/Procedures Lab Laboratory Tests 07/01/22 04:45 Patient resulted labs reviewed. 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 Along with multiple indeterminate pulmonary nodules suspicious for metastatic disease. Biopsy was performed, but without results Followed by Dr. Dover Urinary Incontinence Insert Rosales Catheter Check working order of bladder stimulator, obtain battery Elevated troponin Cardiolog consulted Monitor and trend troponin- trending down Last stress test was done in April 2022 showing minimal decrease uptake at the inferoapical segment with mild reversibility, overall no significant ischemia was noted, stress score 5, SDS 5, ejection fraction 83%. Severe Debility PT and OT consulted Contact Dermatitis- improving Wound Care Consulted MRSA screen negative CAD Continue to monitor Cardiology consulted GERD Maintain Pantaprozole HTN Cardiology consulted-started on BB Peripheral Edema Cardiology ordered Echocardiogram 2D Hyperlipidemia Monitor Lipids Hypokalemia- holding at 3.4 Monitor and replace Anxiety Restart venlafaxine Rheumatoid arthritis Patient requests to restart Xeljanz. Was counseled on why it is currently being withheld Obesity History of Stroke-Last 2016 Maintain on eliquis Bilateral carotid stenosis, US done in November 2019 LUCY CHAVEZ DO 07/01/222056: Subjective Subjective/Events-last exam Pt is doing a lot better Afib with RVR is recurrent Cardizem drip and Amiodraone drip initiated Holding rheumatoid arthritis medication due to acute UTi infection Supervisory-Addendum Brief Verification & Attestation Participated in pt care: history, MDM, physical Personally performed: exam, history, MDM, supervision of care Care discussed with: Medical Student Procedures: n/a Results interpretation: Verified all documentation Verification and Attestation of Medical Student E/M Service A medical student performed and documented this service in my presence. I reviewed and verified all information documented by the medical student and made modifications to such information, when appropriate. I personally performed the physical exam and medical decision making. Lucy Chavez, Jul 01, 2022,20:56 SIRISHA BETANCUR Jul 01, 2022 11:02 LUCY CHAVEZ DO Jul 01, 2022 20:57
--- NOTE | 2022-07-01 13:29 | Occ Therapy Progress Note ---
Therapy Progress Note OT session attempted. Pt very drowsy and difficult to keep awake or keep eyes open. Pt declined all ADLs, out of bed or EOB activities. OT will try again tomorrow if medically appropriate. 1 visit Chhaya Alvarenga OT Jul 01, 2022 13:29
--- NOTE | 2022-07-01 14:33 | Physical Therapy Progress Note ---
Therapy Progress Note Patient refuses physical therapy this afternoon due to fatigue. Patient has also refused occupational therapy and to talk to a social media sr strategy manager. Will check back in the morning. CLEMENTE BLANCO PT Jul 01, 2022 14:33
[2022-07-01] MEDS: cefTRIAXone 1 GM PRE-MIX 50 ML IV SCH (18:50)
[2022-07-01] MEDS: AMIODARONE INJECTION 450 MG in NORMAL SALINE 250 ML IV SCH (19:38)
[2022-07-01] MEDS: ROSUVASTATIN 10 MG (CRESTOR) TABLET PO SCH (20:45)
[2022-07-01] MEDS: LORATADINE (CLARITIN) 10 MG TAB PO SCH (21:22)
[2022-07-02] VITALS (33 sets, daily range): BP systolic 90–124; BP diastolic 46–94
[2022-07-02] MEDS: RT-ALBUTEROL/IPRATROPIUM 3 ML (DUONEB) VIAL INH SCH ×6 (02:51→22:00)
[2022-07-02] MEDS: AMIODARONE INJECTION 450 MG in NORMAL SALINE 250 ML IV SCH (03:25)
[2022-07-02 05:28] LABS: BASOPHILS # (AUTO) 0.1 10^3/uL (0.0-0.1); BASOPHILS % (AUTO) 1 % (0-10); EOSINOPHILS # (AUTO) 0.1 10^3/uL (0.0-0.3); EOSINOPHILS % (AUTO) 1 % (0-10); HEMATOCRIT 27 % (35-52); HEMOGLOBIN 8.8 g/dL (11.5-16.0); LYMPHOCYTES # (AUTO) 0.9 10^3/uL (1.0-4.0); LYMPHOCYTES % (AUTO) 9 % (12-44); MEAN CORPUSCULAR HEMOGLOBIN 25 pg (25-34); MEAN CORPUSCULAR HGB CONC 32 g/dL (32-36); MEAN CORPUSCULAR VOLUME 78 fL (80-99); MEAN PLATELET VOLUME 8.9 fL (9.0-12.2); MONOCYTES # (AUTO) 0.8 10^3/uL (0.0-1.0); MONOCYTES % (AUTO) 7 % (0-12); NEUTROPHILS # (AUTO) 8.6 10^3/uL (1.8-7.8); NEUTROPHILS % (AUTO) 81 % (42-75); PLATELET COUNT 450 10^3/uL (130-400); WHITE BLOOD COUNT 10.7 10^3/uL (4.3-11.0)
[2022-07-02 05:38] LABS: POTASSIUM 3.3 MMOL/L (3.6-5.0)
[2022-07-02 05:39] LABS: CALCIUM 8.8 MG/DL (8.5-10.1)
[2022-07-02 05:40] LABS: TOTAL PROTEIN 6.8 GM/DL (6.4-8.2)
[2022-07-02 05:42] LABS: BILIRUBIN,TOTAL 0.6 MG/DL (0.1-1.0)
[2022-07-02 05:43] LABS: PHOSPHORUS 3.5 MG/DL (2.3-4.7)
[2022-07-02 05:44] LABS: CREATININE SERUM 0.81 MG/DL (0.60-1.30)
[2022-07-02] MEDS ORDERED: NS IV 500 ML 500 ML IV PRN (05:45)
[2022-07-02 05:46] LABS: MAGNESIUM 1.7 MG/DL (1.6-2.4)
[2022-07-02] MEDS ORDERED: POTASSIUM CL 10MEQ/50ML IVPB 200 ML IV ONE (06:01)
[2022-07-02] MEDS ORDERED: NS IV 500 ML 500 ML ONE (06:03)
[2022-07-02] MEDS: POTASSIUM CL 10MEQ/50ML IVPB 50 ML IV SCH ×7 (06:05→10:26)
[2022-07-02] MEDS ORDERED: KCL 20 MEQ TAB (K-DUR) PO ONE (06:45)
[2022-07-02] MEDS: KCL 20 MEQ TAB (K-DUR) PO SCH (06:53)
[2022-07-02] MEDS: MAGNESIUM 1 GM/100 ML IVPB 100 ML IV SCH (06:53)
--- NOTE | 2022-07-02 06:55 | Diagnostic Imaging Report ---
INDICATION: Abnormal lung sounds. Comparison is made with prior exam of 06/30/2022 FINDINGS: There is cardiomegaly and some venous congestion. There is an extensive right upper lobe pneumonia. No pleural effusion or pneumothorax. Loop recorder overlies left chest. IMPRESSION: Persistent extensive right upper lobe pneumonia. Cardiomegaly and some central pulmonary venous congestion. Dictated by: Dictated on workstation # [id number]
[2022-07-02] MEDS: SENNOSIDES 8.6 MG (SENOKOT) TAB PO SCH ×2 (07:22→20:45)
[2022-07-02] MEDS: DOCUSATE SODIUM 100 MG (COLACE) CAP PO SCH ×2 (07:22→20:45)
[2022-07-02] MEDS: RT-BUDESONIDE NEBS 0.5 MG/2ML (PULMICORT) AMP INH SCH ×2 (07:51→22:00)
--- NOTE | 2022-07-02 08:26 | Cardiology Progress Note ---
Subjective Date Seen by Provider: Jul 02, 2022 Time Seen by Provider: 08:24 Subjective/Events-last exam Patient was seen at bedside, laying down comfortably, using BiPAP. Review of Systems General: No Chills, No Night Sweats, No Fatigue, No Malaise, No Appetite, No Other HEENT: No Head Aches, No Visual Changes, No Eye Pain, No Ear Pain, No Dysphasia, No Sinus Congestion, No Post Nasal Drip, No Sore Throat, No Other Pulmonary: Dyspnea; No Cough, No Pleuritic Chest Pain, No Other Cardiovascular: No: Chest Pain, Palpitations, Orthopnea, Paroxysmal Noc. Dyspnea, Edema, Lt Headedness, Other Objective-Cardiology Exam Last Set of Vital Signs Vital Signs 07/02/22 07/02/22 07/02/22 07/02/22 04:00 06:00 07:59 08:00 Temp 36.0 Pulse 80 Resp 37 B/P (MAP) 117/68 (84) Pulse Ox 96 O2 Delivery NIV Bilevel O2 Flow Rate 50.00 FiO2 40 I&O Intake and Output 07/01/22 23:59 Intake Total 1753 ml Output Total 2525 ml Balance -772 ml Intake Oral 1650 ml IV Total 103 ml Output Urine Total 2525 ml # Bowel Movements 1 General: Alert, Oriented X3, Cooperative HEENT: Atraumatic, PERRLA Neck: Supple, No JVD, No Thyromegaly Lungs: Clear to Auscultation, Normal Air Movement Heart: Regular Rate, Normal S1, Normal S2, No Murmurs Abdomen: Normal Bowel Sounds, Soft, No Tenderness, No Hepatosplenomegaly, No Masses Extremities: No Clubbing, No Cyanosis, No Edema, Normal Pulses, No Tenderness/Swelling Skin: No Rashes, No Breakdown, No Significant Lesion Neuro: Normal Gait, Normal Speech, Strength at 5/5 X4 Ext, Normal Tone, Sensation Intact Psych/Mental Status: Mental Status NL, Mood NL Results Lab Laboratory Tests 07/02/22 05:25 A/P-Cardiology Admission Diagnosis Hemoptysis Paroxysmal atrial fibrillation Hypertension Hyperlipidemia Assessment/Plan Generalized fatigue and loss of energy, right upper lobe infiltrate, chronic hemoptysis Managed by primary care physician Paroxysmal atrial fibrillation,/flutter Patient had history of loop recorder documented atrial fibrillation, maintained on Eliquis Has been having multiple episodes of atrial fibrillation/flutter, patient converted to sinus rhythm after Valsalva maneuver but did not maintain sinus rhythm and returned to atrial fibrillation Patient received amiodarone 150 loading dose then required IV drip I will restart Multaq after the loading dose. Acute on chronic respiratory insufficiency, maintained on BiPAP. Managed by primary care physician. Patient follows with Dr. Lopez [id number] score of 4, yearly risk of stroke without oral anticoagulation is 4%. Continue on Eliquis Hypokalemia, patient was given 40 mEq of potassium. Monitor electrolytes Recurrent hemoptysis, has been following with Dr. Lopez Reported that she had bronchoscopy and there was a lung mass and lymphadenopathy but according to the patient it was benign after biopsy. Followed by Dr. Lopez Minimal troponin elevation, we will continue to monitor the trend. Patient denied any active chest pain. Last stress test was done in April 2022 showing minimal decrease uptake at the inferoapical segment with mild reversibility, overall no significant ischemia was noted, stress score 5, SDS 5, ejection fraction 83%. Continue to monitor. Nonobstructive coronary artery disease per cardiac catheterization 2010 Last stress test was done in April 2022 as described above. Continue to monitor History of recurrent stroke, multiple stroke reported in the past, last stroke occurred in March 2017 and received TPA in [facility], second stroke occurred in August 2017, CT was reported as periventricular and deep white matter hypodensity suggesting chronic microvascular ischemic changes. Reveal device was implanted and showed episodes of atrial fibrillation, is now maintained on Eliquis GERD, maintained on Protonix, no recent endoscopy, has seen Dr. Saini in the past, will refer back to Dr. Saini for further evaluation. History of recurrent sinus tachycardia, maintained on beta-blockers and tolerating medication well. Peripheral edema, reporting improvement. 2-D echocardiogram in August 2017 within normal limits. I will repeat 2D echo Hypertension, monitor blood pressure Hyperlipidemia, intolerant to statin, monitor lipids Chronic dizziness, reporting improvement. History of syncope with negative tillt table test, test was done in December 2011, no further syncopal episodes were noted. Continue to monitor. Rheumatoid arthritis Obesity, BMI is 32, educated on weight loss Mild bilateral carotid stenosis, last ultrasound was done in November 2019, continue to monitor. Ex tobaccoism NADIYA SCOTT MD Jul 02, 2022 08:26
[2022-07-02] MEDS ORDERED: FUROSEMIDE 40 MG/4 ML INJ (LASIX) IVP ONE (08:30)
[2022-07-02] MEDS: PANTOPRAZOLE 40 MG (PROTONIX) TAB PO SCH (08:40)
[2022-07-02] MEDS: APIXABAN 5 MG (ELIQUIS) TABLET PO SCH ×2 (08:40→20:41)
[2022-07-02] MEDS: DRONEDARONE 400 MG TABLET PO SCH ×2 (08:40→20:41)
[2022-07-02] MEDS: OFLOXACIN 0.3% OPHTH SOLN 5 ML OP SCH ×3 (08:40→20:42)
[2022-07-02] MEDS: VENlafaxine XR 75 MG (EFFEXOR XR) CAP PO SCH (08:40)
[2022-07-02] MEDS: meTOproloL SUCCINATE 50 MG (TOPROL XL) TAB PO SCH (08:40)
[2022-07-02] MEDS: NYSTATIN CREAM (MYCOSTATIN) 30 GM TUBE TP SCH ×3 (08:41→20:42)
--- NOTE | 2022-07-02 09:17 | Tele-ICU Progress Note ---
Subjective Date Seen by a Provider: Jul 02, 2022 Time Seen by a Provider: 09:12 Subjective/Events-last exam (Tele-ICU Physician , progress note) Available chart/ vitals / labs / Images reviewed H&P is from ER notes Patient's information available about PMH, allergy reviewed in EMR. ROS as per chart and RN report Video assessment done using teleICU camera, rest of exam as per RN Discussed with RN. This patient who has a history of hypertension, stroke in the past for which she has been on apixaban recently moved with her daughter as she is unable to care herself was found on the floor and feces by her daughter and brought to the emergency room where she is found to have atrial fibrillation with rapid ventricular rate. Initially apparently she is somewhat disoriented but now she is completely oriented. She has a history of lung mass with what looks like a metastatic disease on the CT of the chest previously for which she underwent lung biopsy at the [facility]. According to her her biopsy was negative for malignancy but exact etiology not clear and we do not have the report yet. She is started on Cardizem drip for rate which her heart rate controlled and currently converted to sinus rhythm. Patient is seen by cardiology and restarted on apixaban. Currently she is awake alert oriented. In no acute distress but complains of weakness and fatigue. also has intermittent hemoptysis. She had apparently bronchoscopic guided lung biopsy. 07/02/22. pt was started on Cardizem drip. now nsr. but developed respiratory distress requiring NIV 09/15 with 50% fio2. Tachypneic.unable to tolerate off the Bipap. Being diuressed. Review of Systems ROS PER RN Sepsis Event Evaluation Height, Weight, BMI Height: 5'6.00" Weight: 220lbs. 0.0oz. 99.764350qm; 33.75 BMI Method:Stated Exam Exam Patient acknowledged, consented, and participated in this virtual visit which was conducted using real time audio/video Vital Signs Date Time Temp Pulse Resp B/P (MAP) Pulse Ox O2 Delivery O2 Flow Rate FiO2 07/02/22 08:37 36.0 77 96 07/02/22 08:00 79 33 108/73 (85) 96 NIV Bilevel 40.00 07/02/22 08:00 NIV Bilevel 40 07/02/22 07:59 37 96 50.00 07/02/22 07:53 37 96 50.00 07/02/22 07:00 79 39 111/62 (78) 93 NIV Bilevel 40.00 07/02/22 07:00 77 07/02/22 06:00 80 30 117/68 (84) 96 NIV Bilevel 40.00 07/02/22 05:00 80 28 108/60 (76) 93 NIV Bilevel 40.00 07/02/22 04:18 98 NIV Bilevel 40 07/02/22 04:15 86 34 94 40.00 07/02/22 04:00 36.0 07/02/22 04:00 85 35 104/67 (79) 93 NIV Bilevel 40.00 07/02/22 03:25 34 94 40.00 07/02/22 03:04 90 High Flow N/C 8.00 07/02/22 03:00 93 47 112/54 (73) 88 NIV Bilevel 40.00 07/02/22 02:00 87 36 96/59 (71) 90 NIV Bilevel 40.00 07/02/22 01:19 90 07/02/22 01:00 86 30 103/62 (76) 89 Nasal Cannula 6.00 07/02/22 00:00 90 39 104/54 (71) 91 Nasal Cannula 6.00 07/02/22 00:00 37.7 Nasal Cannula 6.00 07/02/22 00:00 92 Nasal Cannula 6.00 07/01/22 23:00 92 41 104/51 (68) 89 Nasal Cannula 3.00 07/01/22 22:00 90 31 105/63 (77) 89 Nasal Cannula 3.00 07/01/22 21:02 93 Nasal Cannula 3.00 07/01/22 21:00 88 18 103/49 (67) 94 Nasal Cannula 3.00 07/01/22 20:25 94 Nasal Cannula 2.00 07/01/22 20:15 90 28 112/45 (67) 92 Nasal Cannula 3.00 07/01/22 20:00 90 21 89/57 (68) 93 Nasal Cannula 3.00 07/01/22 19:38 86 07/01/22 19:30 88 07/01/22 19:15 87 43 115/90 (98) 92 Nasal Cannula 3.00 07/01/22 19:00 92 18 121/111 (114) 93 Nasal Cannula 3.00 07/01/22 18:00 86 27 113/56 (75) Nasal Cannula 3.00 07/01/22 16:00 Nasal Cannula 2.00 07/01/22 16:00 96 23 109/61 (77) Nasal Cannula 3.00 07/01/22 15:03 92 Nasal Cannula 3.00 07/01/22 15:00 106 14 111/63 (79) Nasal Cannula 3.00 07/01/22 15:00 109 35 109/93 (98) Nasal Cannula 3.00 07/01/22 14:00 118 20 104/94 (97) Nasal Cannula 3.00 07/01/22 13:00 105 07/01/22 13:00 105 25 96/62 (73) Nasal Cannula 3.00 07/01/22 12:00 105 23 116/55 (75) Nasal Cannula 3.00 07/01/22 12:00 Nasal Cannula 2.00 07/01/22 11:55 36.7 07/01/22 11:00 120 20 107/64 (78) 93 Nasal Cannula 3.00 07/01/22 10:00 94 Nasal Cannula 3.00 07/01/22 10:00 109 11 92/62 (72) 96 Nasal Cannula 3.00 I & O 07/02/22 07:00 Intake Total 2043 ml Output Total 1400 ml Balance 643 ml Height & Weight Height: 5'6.00" Weight: 220lbs. 0.0oz. 99.674159zk; 33.75 BMI Method:Stated General Appearance: Chronically ill, Mild Distress, Obese HEENT: Moist Mucous Membranes; No Scleral Icterus (L), No Scleral Icterus (R) Neck: Full Range of Motion, Non Tender Respiratory: Chest Non Tender; No Lungs Clear, No No Accessory Muscle Use Cardiovascular: Regular Rate, Rhythm, No Gallop, No JVD Extremity: Normal Capillary Refill, Swelling Neurologic/Psychiatric: Alert, Oriented x3 Skin: Normal Color, Rash (Excoriated rash of gluteal region and left lateral lower leg) Lymphatic: No Adenopathy Other comments PE PER RN Results Lab Laboratory Tests 07/01/22 04:45 07/02/22 05:25 Assessment/Plan Assessment/Plan 1. Hemoptysis with underlying lung mass still a consideration for possible underlying malignancy. But patient reports that her biopsy was a negative.CXR concerning also for organising pneumonia. 2. Paroxysmal atrial fibrillation currently rate controlled and nsr being followed by cardiology service. 3. Minimal troponin elevation being followed by cardiology 4. Lung mass and pulmonary nodule evaluation per ,at [place] 5. Acute hypoxic Respiratory failure requiring Bipap. Recommendations 1. Continue monitor atrial fibrillation and management per cardiology 2. Continue bipap ventillation 3. If they PET scan is not done I would recommend to do a PET scan and consider VATS guided biopsy. 4. continue diuretic therapy, if no response will try on steroids Critical Care: Critically Ill Patient Time spent with patient (mins): 35 MALINI SOTO MD Jul 02, 2022 09:17
--- NOTE | 2022-07-02 10:21 | Physical Therapy Progress Note ---
Therapy Progress Note Patient currently on BiPap and declined PT stating, "I'm just tired." RN notified. PT will attempt tomorrow a.m. 1 ref FIDEL AJRQUIN PT Jul 02, 2022 10:21
[2022-07-02] MEDS ORDERED: VANCOMYCIN INJECTION 0.1 MG in NS (IVPB) 250 ML IV SCH (10:45)
[2022-07-02 11:09] LABS: ABG BASE EXCESS -0.9 MMOL/L (-2.5-2.5); ABG OXYGEN SATURATION 98 % (94-100); ABG PCO2 39 MMHG (35-45); ABG PH 7.39 (7.37-7.43); ABG PO2 86 MMHG (79-93); ABG TCO2 24.8 MMOL/L (21.0-31.0)
[2022-07-02 11:10] LABS: ALLENS TEST YES-POS; INSPIRED O2 50%; VENTILATOR NO
--- NOTE | 2022-07-02 11:18 | Occ Therapy Progress Note ---
Therapy Progress Note Pt currently on BiPap. Pt able to verbalize that she is tired and declines to participate in therapy. GÓMEZ and nrsg assisted pt to position for comfort. Will attempt to see pt tomorrow. 1 refusal [id number] JEWEL MARCOS Jul 02, 2022 11:18
[2022-07-02] MEDS: CEFEPIME INJECTION 1,000 MG in NS (IVPB) 50 ML IV SCH ×3 (11:52→22:26)
[2022-07-02] MEDS ORDERED: VANCOMYCIN 1,750 MG/NS 500 ML IVPB IV NR ×2 (12:00)
--- NOTE | 2022-07-02 14:15 | Progress Note - Hospitalist ---
SIRISHA BETANCUR 07/02/22 1415: Subjective HPI/CC On Admission Date Seen by Provider: Jul 02, 2022 Time Seen by Provider: 14:09 CC: Afib with RVR HPI: This is a 67 yr old female with known afib. She came from [place] with afib. Pt is maintained on Eliquis and placed on Cardizem. She is now at normal sinus rhythm, but sustained NSTEMI. She is having some bowel and bladder dysfunction. She is having some hemoptysis. She has had a bronchoscopy with biopsy before. Subjective/Events-last exam Patient is now on BiPAP She is somulent and unoriented Patient has regressed since yesterday Currently in NSR-Had episode of PAF RVR last night Has no complaints of pain Respiratory decompensation Has acute pneumonia Objective Exam Vital Signs Vital Signs Date Time Temp Pulse Resp B/P (MAP) Pulse Ox O2 Delivery O2 Flow Rate FiO2 07/02/22 14:00 79 36 100/55 (70) 99 NIV Bilevel 40.00 07/02/22 12:00 40 07/02/22 11:53 36.0 Capillary Refill : General Appearance: Chronically ill, Moderate Distress, Obese HEENT: No Scleral Icterus (L), No Scleral Icterus (R) Neck: Full Range of Motion, Non Tender Respiratory: Chest Non Tender; No Lungs Clear; Decreased Breath Sounds, Respiratory Distress Cardiovascular: No Gallop, No JVD, No Murmur Gastrointestinal: Normal Bowel Sounds, Non Tender, Soft Rectal: Deferred Back: Normal Inspection, No CVA Tenderness Extremity: Normal Capillary Refill, Normal Inspection Neurologic/Psychiatric: Alert; No Oriented x3, No Normal Mood/Affect; Disoriented Skin: Normal Color, Warm/Dry Lymphatic: No Adenopathy Results/Procedures Lab Laboratory Tests 07/02/22 05:25 Patient resulted labs reviewed. 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 Along with multiple indeterminate pulmonary nodules suspicious for metastatic disease. Biopsy was performed, but without results Followed by Dr. Dover Urinary Incontinence Insert Rosales Catheter Check working order of bladder stimulator, obtain battery Elevated troponin Cardiolog consulted Monitor and trend troponin- trending down Last stress test was done in April 2022 showing minimal decrease uptake at the inferoapical segment with mild reversibility, overall no significant ischemia was noted, stress score 5, SDS 5, ejection fraction 83%. Severe Debility PT and OT consulted Hypoalbuminemia Contact Dermatitis- improving Wound Care Consulted MRSA screen negative CAD Continue to monitor Cardiology consulted GERD Maintain Pantaprozole HTN Cardiology consulted-started on BB Peripheral Edema Cardiology ordered Echocardiogram 2D Hyperlipidemia Monitor Lipids Hypokalemia- holding at 3.3 Monitor and replace Hyponatremia Anxiety Restart venlafaxine Rheumatoid arthritis Patient requests to restart Xeljanz. Was counseled on why it is currently being withheld Obesity History of Stroke-Last 2016 Maintain on eliquis Bilateral carotid stenosis, US done in November 2019 LUCY CHAVEZ DO 07/03/22 0527: Subjective Subjective/Events-last exam Patient to be more complicated BiPAP now Cough is significant Antibiotics initiated Objective Exam General Appearance: Chronically ill, Moderate Distress Respiratory: Decreased Breath Sounds, Respiratory Distress Cardiovascular: Irregularly Irregular, Tachycardia Assessment/Plan Assessment and Plan Assess & Plan/Chief Complaint High risk for intubation Supervisory-Addendum Brief Verification & Attestation Participated in pt care: history, MDM, physical Personally performed: exam, history, MDM, supervision of care Care discussed with: Medical Student Procedures: n/a Results interpretation: Verified all documentation Verification and Attestation of Medical Student E/M Service A medical student performed and documented this service in my presence. I reviewed and verified all information documented by the medical student and made modifications to such information, when appropriate. I personally performed the physical exam and medical decision making. Lucy Chavez Jul 03, 2022,05:26 SIRISHA BETANCUR Jul 02, 2022 14:15 LUCY CHAVEZ DO Jul 03, 2022 05:27
[2022-07-02] MEDS ORDERED: morphine INJ 4 MG/ML 1 ML (VIAL/SYRINGE) ONE (14:52)
[2022-07-02] MEDS ORDERED: methylPREDNISolone 40 MG/ML (Solu-MEDROL) VIAL IV SCH (15:00)
[2022-07-02] MEDS ORDERED: morphine INJ 4 MG/ML 1 ML (VIAL/SYRINGE) IVP ONE (15:00)
--- NOTE | 2022-07-02 15:23 | Diagnostic Imaging Report ---
CHEST 1 VIEW, AP/PA ONLY INDICATION: Pneumonia, respiratory failure. COMPARISON: 07/02/2022. FINDINGS: No change in diffuse consolidations throughout the right lung, most confluent in the right upper lung zone. Left basilar patchy opacities are similar. No pleural effusion or pneumothorax. Normal cardiac silhouette. IMPRESSION: 1. No change in multifocal pneumonia, greatest in the right upper lobe. Dictated by: Dictated on workstation # [id number]
[2022-07-02] MEDS: morphine INJ 4 MG/ML 1 ML (VIAL/SYRINGE) IVP PRN ×2 (20:41→23:01)
[2022-07-02] MEDS: LORATADINE (CLARITIN) 10 MG TAB PO SCH (20:41)
[2022-07-02] MEDS: ROSUVASTATIN 10 MG (CRESTOR) TABLET PO SCH (20:41)
[2022-07-02] MEDS: methylPREDNISolone 40 MG/ML (Solu-MEDROL) VIAL IV SCH (22:25)
[2022-07-03] VITALS (25 sets, daily range): BP systolic 83–138; BP diastolic 44–99
[2022-07-03] MEDS ORDERED: ALBUMIN 5% 12.5 GM/250 ML 250 ML IV ONE (01:30)
[2022-07-03] MEDS: RT-ALBUTEROL/IPRATROPIUM 3 ML (DUONEB) VIAL INH SCH ×4 (02:37→15:38)
[2022-07-03] MEDS: CEFEPIME INJECTION 1,000 MG in NS (IVPB) 50 ML IV SCH ×3 (04:14→16:34)
[2022-07-03] MEDS: methylPREDNISolone 40 MG/ML (Solu-MEDROL) VIAL IV SCH ×3 (04:14→16:32)
[2022-07-03 04:44] LABS: ABG OXYGEN SATURATION 94 % (94-100); ABG PCO2 41 MMHG (35-45); ABG PO2 65 MMHG (79-93); ABG TCO2 23.4 MMOL/L (21.0-31.0)
[2022-07-03 04:46] LABS: ABG PH 7.34 (7.37-7.43); ALLENS TEST YES-POS; INSPIRED O2 50% BIPAP; PATIENT TEMP 36; VENTILATOR NO
[2022-07-03 04:56] LABS: BASOPHILS % (AUTO) 0 % (0-10); EOSINOPHILS % (AUTO) 0 % (0-10); HEMATOCRIT 25 % (35-52); HEMOGLOBIN 7.8 g/dL (11.5-16.0); LYMPHOCYTES # (AUTO) 0.4 10^3/uL (1.0-4.0); LYMPHOCYTES % (AUTO) 5 % (12-44); MEAN CORPUSCULAR HEMOGLOBIN 25 pg (25-34); MEAN CORPUSCULAR HGB CONC 31 g/dL (32-36); MEAN CORPUSCULAR VOLUME 80 fL (80-99); MEAN PLATELET VOLUME 9.7 fL (9.0-12.2); MONOCYTES # (AUTO) 0.2 10^3/uL (0.0-1.0); MONOCYTES % (AUTO) 3 % (0-12); NEUTROPHILS # (AUTO) 7.9 10^3/uL (1.8-7.8); NEUTROPHILS % (AUTO) 91 % (42-75); PLATELET COUNT 430 10^3/uL (130-400); WHITE BLOOD COUNT 8.7 10^3/uL (4.3-11.0)
[2022-07-03 05:23] LABS: BILIRUBIN,TOTAL 0.9 MG/DL (0.1-1.0); CREATININE SERUM 0.88 MG/DL (0.60-1.30); POTASSIUM 3.7 MMOL/L (3.6-5.0); TOTAL PROTEIN 6.8 GM/DL (6.4-8.2)
[2022-07-03] MEDS: POTASSIUM CL 10MEQ/50ML IVPB 50 ML IV SCH (05:28)
[2022-07-03] MEDS: KCL 20 MEQ TAB (K-DUR) PO SCH (05:29)
[2022-07-03] MEDS: MAGNESIUM 1 GM/100 ML IVPB 100 ML IV SCH (06:24)
[2022-07-03] MEDS: VENlafaxine XR 75 MG (EFFEXOR XR) CAP PO SCH (06:33)
--- NOTE | 2022-07-03 07:14 | Physical Therapy Progress Note ---
Therapy Progress Note Patient on Hold due to current medical and respiratory status. PT will reassess tomorrow FIDEL Busch PT Jul 03, 2022 07:14
[2022-07-03] MEDS: RT-BUDESONIDE NEBS 0.5 MG/2ML (PULMICORT) AMP INH SCH (07:45)
[2022-07-03] MEDS: DOCUSATE SODIUM 100 MG (COLACE) CAP PO SCH (07:52)
[2022-07-03] MEDS: SENNOSIDES 8.6 MG (SENOKOT) TAB PO SCH (07:52)
[2022-07-03] MEDS: DRONEDARONE 400 MG TABLET PO SCH (07:52)
[2022-07-03] MEDS: meTOproloL SUCCINATE 50 MG (TOPROL XL) TAB PO SCH (07:53)
[2022-07-03] MEDS: APIXABAN 5 MG (ELIQUIS) TABLET PO SCH (07:53)
[2022-07-03] MEDS: NYSTATIN CREAM (MYCOSTATIN) 30 GM TUBE TP SCH ×2 (07:53→12:11)
[2022-07-03] MEDS: OFLOXACIN 0.3% OPHTH SOLN 5 ML OP SCH ×2 (07:53→12:11)
[2022-07-03] MEDS: PANTOPRAZOLE 40 MG (PROTONIX) TAB PO SCH (07:53)
[2022-07-03] MEDS: morphine INJ 4 MG/ML 1 ML (VIAL/SYRINGE) IVP PRN ×2 (07:54→11:12)
--- NOTE | 2022-07-03 09:34 | Cardiology Progress Note ---
Progress Note-Cardiology Events since last exam Date Seen by Provider: Jul 03, 2022 Time Seen by Provider: 09:32 Events since last exam We are following her due to atrial fibrillation. She remains in the intensive care unit on BiPAP. She rapidly desaturates when the BiPAP is removed. She has been having some hemoptysis. She is difficult to communicate with due to the BiPAP. She does not feel as though her breathing has improved. She denies chest discomfort, palpitations, or syncope. She has mild peripheral edema. Certain portions of this document may have been dictated utilizing voice recognition technology. Inherent to this technology, typographical and grammatical errors may exist. As much as I am diligent to identify and correct these mistakes, some errors may remain in the document. Vitals Last set of Vitals Signs Vital Signs 07/03/22 07/03/22 07/03/22 08:32 11:19 12:00 Temp 35.8 Pulse 83 Resp 26 B/P (MAP) 92/62 (72) Pulse Ox 100 O2 Delivery NIV Bilevel O2 Flow Rate 55.00 FiO2 100 Labs Labs Laboratory Tests 07/03/22 04:22 Exam Vital Signs Vital Signs Date Time Temp Pulse Resp B/P (MAP) Pulse Ox O2 Delivery O2 Flow Rate FiO2 07/03/22 12:00 83 26 92/62 (72) 100 NIV Bilevel 55.00 07/03/22 11:19 100 07/03/22 08:32 35.8 Physical Exam General: Alert. She is in mild respiratory distress on BiPAP. She is obese. Eye: No xanthelasma. HENT: Normocephalic. Neck: Jugular venous pressure does not appear elevated. Respiratory: She is on BiPAP. Lungs have diffuse coarse upper airway sounds. Breath sounds are equal. Symmetrical chest wall expansion. Cardiovascular: Normal rate. Regular rhythm. Distant S1/S2. No murmur. No gallop. 1+ bilateral pretibial edema. Gastrointestinal: Soft. Normal bowel sounds. Skin: Warm. Dry. Neurologic: Alert and oriented to person, place, time. Cranial nerves 3-11 grossly intact. Psychiatric: Cooperative. Appropriate mood & affect. Labs Laboratory Tests Test 07/03/22 04:22 07/03/22 04:25 07/03/22 12:20 Range/Units White Blood Count 8.7 4.3-11.0 10^3/uL Red Blood Count 3.16 L 3.80-5.11 10^6/uL Hemoglobin 7.8 L 11.5-16.0 g/dL Hematocrit 25 L 35-52 % Mean Corpuscular Volume 80 80-99 fL Mean Corpuscular Hemoglobin 25 25-34 pg Mean Corpuscular Hemoglobin Concent 31 L 32-36 g/dL Red Cell Distribution Width 16.3 H 10.0-14.5 % Platelet Count 430 H 130-400 10^3/uL Mean Platelet Volume 9.7 9.0-12.2 fL Immature Granulocyte % (Auto) 2 % Neutrophils (%) (Auto) 91 H 42-75 % Lymphocytes (%) (Auto) 5 L 12-44 % Monocytes (%) (Auto) 3 0-12 % Eosinophils (%) (Auto) 0 0-10 % Basophils (%) (Auto) 0 0-10 % Neutrophils # (Auto) 7.9 H 1.8-7.8 10^3/uL Lymphocytes # (Auto) 0.4 L 1.0-4.0 10^3/uL Monocytes # (Auto) 0.2 0.0-1.0 10^3/uL Eosinophils # (Auto) 0.0 0.0-0.3 10^3/uL Basophils # (Auto) 0.0 0.0-0.1 10^3/uL Immature Granulocyte # (Auto) 0.1 0.0-0.1 10^3/uL Sodium Level 136 135-145 MMOL/L Potassium Level 3.7 3.6-5.0 MMOL/L Chloride Level 103 98-107 MMOL/L Carbon Dioxide Level 18 L 21-32 MMOL/L Anion Gap 15 H 5-14 MMOL/L Blood Urea Nitrogen 13 7-18 MG/DL Creatinine 0.88 0.60-1.30 MG/DL Estimat Glomerular Filtration Rate 73 BUN/Creatinine Ratio 15 Glucose Level 185 H 70-105 MG/DL Calcium Level 9.0 8.5-10.1 MG/DL Corrected Calcium 9.8 8.5-10.1 MG/DL Magnesium Level 1.9 1.6-2.4 MG/DL Total Bilirubin 0.9 0.1-1.0 MG/DL Aspartate Amino Transf (AST/SGOT) 49 H 5-34 U/L Alanine Aminotransferase (ALT/SGPT) 45 0-55 U/L Alkaline Phosphatase 129 40-136 U/L C-Reactive Protein High Sensitivity 37.66 H 0.00-0.50 MG/DL Total Protein 6.8 6.4-8.2 GM/DL Albumin 3.0 L 3.2-4.5 GM/DL Triglycerides Level 122 <150 MG/DL Blood Gas Puncture Site LEFT RADIAL Blood Gas Patient Temperature 36 Arterial Blood pH 7.34 *L 7.37-7.43 Arterial Blood Partial Pressure CO2 41 35-45 MMHG Arterial Blood Partial Pressure O2 65 L 79-93 MMHG Arterial Blood HCO3 22 L 23-27 MMOL/L Arterial Blood Total CO2 23.4 21.0-31.0 MMOL/L Arterial Blood Oxygen Saturation 94 94-100 % Arterial Blood Base Excess -3.0 L -2.5-2.5 MMOL/L Tanner Test YES-POS Blood Gas Ventilator Setting NO Blood Gas Inspired Oxygen 50% BIPAP Diagnosis/Problems Diagnosis/Problems (1) Paroxysmal atrial fibrillation Assessment & Plan: She converted back to sinus rhythm with intravenous amiodarone. She is now back on dronedarone. She is on apixaban for stroke prophylaxis. Due to her hemoptysis and possible need for bronchoscopy with biopsy, we may need to place her apixaban on hold. She does not need to be bridged with enoxaparin or heparin when the apixaban is temporarily stopped. (2) Acute on chronic respiratory failure with hypoxemia Assessment & Plan: I suspect this is due to primarily to underlying pulmonary disease as opposed to heart failure. (3) Primary hypertension Assessment & Plan: Her blood pressure has been reasonably well controlled on her home dose of metoprolol. (4) Mixed hyperlipidemia Assessment & Plan: Continue statin medication. (5) Troponin level elevated Assessment & Plan: She had a very minimal elevation of her troponin level. This may have been a type II non-ST elevation myocardial infarction secondary to supply/demand mismatch from the atrial fibrillation as well as her acute on ch ronic respiratory failure. She is not currently a candidate for an ischemic evaluation. This could be considered as an outpatient. LYNDSAY NEVILLE JR, MD Jul 03, 2022 09:34
--- NOTE | 2022-07-03 09:37 | Tele-ICU Progress Note ---
Subjective Date Seen by a Provider: Jul 03, 2022 Time Seen by a Provider: 09:37 Subjective/Events-last exam (Tele-ICU Physician , Progress Note ) Available chart/ vitals / labs / Images reviewed Video assessment done using teleICU camera, rest of exam as per RN Discussed with RN Events overnight : Afebrile hemodynamically stable Respiratory - I/O = Drips: Pressors- no Consultants: Hospital course: (06/30) 67y/F admitted for OSH ER for rapid Afib, hemoptysis (lung CA), severe debility, UTI-e. coli. Possible PNA vs lung CA. Found by daughter unable to get up and laying in urine/feces. (07/02) Increased O2 need at Midnight and placed on bipap. ?wosening PNA vs CHF. SEPSIS PROG FORM DONE. ABG ok. Dependant on bipap. Diuresing 07/03 - AVAPS 400 rr12 Epap 6 Ipap 10-30 55% RR 43 - V 42L , TV 100 ml A/P Acute resp failure - 07/02/22. . but developed respiratory distress requiring NIV 09/15 with 50% fio2 - now on AVAPS 400 rr12 Epap 6 Ipap 10-30 55% RR 43 - V 42L , TV 100 ml - WILL NEED TO BE INTUBATED RUL PNA - cont abx - obtrain cx Hemoptysis with underlying lung mass , reportedly Recurrent hemoptysis - consideration for possible underlying malignancy, last CT here 2018 - 4 mm RLL nodule , reported [facility] CT scan done on 03/05/2022, which showed pleural space lung mass suspicious for lung cancer and multiple indeterminate pulmonary nodules suspicious for metastatic disease Reported s/p bronchoscopy and there was a lung mass and lymphadenopathy but according to the patient it was benign after biopsy as per notes - will do FOB to assess sourse of bleedinf - ? PNA vs endobronchial blled PAF - amiodarone 150 loading dose then required IV drip -pt was started on Cardizem drip. now nsr = OFF CARDENE - HOLD ELIQUIS if large volume hemoptysis COPD - cont steroids - decreaqse dose Nonobstructive CAD troponin elevation being followed by cardiology - ECHO pending UTI with E coli - cont abx Rheumatoid arthritis JENNIFER - non-compliance with CPAP Chronic urinary incontinence -s/p Bladder stimulator placement Lines : PICC 07/03 planned , (Central Line Necessity Reviewed) Rosales: + OG: Nutrition: npo marylu , TF after intubateion Analgesia: Anxiety/ delirium VTE Prophylaxis: PPI Stress Ulcer Prophylaxis: eliquis Plans in collaboration with bedside consultants and IM MDs. discussed with Dr Da Silva Discussed with RN to reach out if any questions or concerns A total of 40 minutes of critical care time was devoted to this patient today, required to treat and/or prevent further deterioration of critical care condition ( as above ) . I am remotely monitoring this patient from another state. I am unable to do bedside exam, and history/physical and peritinent information is taken from other notes in the computer and bedside staff. I cannot take responsibility for the accuracy of this information. Sepsis Event Evaluation Height, Weight, BMI Height: 5'6.00" Weight: 220lbs. 0.0oz. 99.861935ec; 33.94 BMI Method:Stated Exam Exam Patient acknowledged, consented, and participated in this virtual visit which was conducted using real time audio/video Vital Signs Date Time Temp Pulse Resp B/P (MAP) Pulse Ox O2 Delivery O2 Flow Rate FiO2 07/03/22 09:00 92 43 138/61 (86) 87 NIV Bilevel 55.00 07/03/22 08:48 95 NIV Bilevel 55 07/03/22 08:37 NIV Bilevel 55.00 07/03/22 08:32 35.8 07/03/22 08:00 82 30 123/85 (98) 100 NIV Bilevel 45.00 07/03/22 07:46 88 42 94 45.00 07/03/22 07:00 72 07/03/22 07:00 78 35 120/77 (91) 94 NIV Bilevel 45.00 07/03/22 06:00 64 16 100/59 (73) 93 NIV Bilevel 45.00 07/03/22 05:00 65 23 96/58 (71) 94 NIV Bilevel 45.00 07/03/22 04:15 70 24 100/62 (75) 94 NIV Bilevel 45.00 07/03/22 04:00 36.0 07/03/22 04:00 72 20 83/53 (63) 96 NIV Bilevel 45.00 07/03/22 04:00 96 NIV Bilevel 45 07/03/22 03:00 66 21 96/56 (69) 97 NIV Bilevel 45.00 07/03/22 02:58 NIV Bilevel 45.00 07/03/22 02:37 24 99 50.00 07/03/22 02:00 74 20 110/65 (80) 97 NIV Bilevel 50.00 07/03/22 01:00 71 27 96/56 (69) 96 NIV Bilevel 50.00 07/03/22 00:20 71 07/03/22 00:00 36.1 07/03/22 00:00 73 30 87/45 (59) 96 NIV Bilevel 50.00 07/02/22 23:59 95 NIV Bilevel 50 07/02/22 23:00 79 33 92/46 (61) 96 NIV Bilevel 50.00 07/02/22 22:01 34 96 50.00 07/02/22 22:00 79 24 90/56 (67) 97 NIV Bilevel 50.00 07/02/22 21:00 76 31 100/54 (69) 96 NIV Bilevel 50.00 07/02/22 20:00 82 40 111/57 (75) 97 NIV Bilevel 50.00 07/02/22 20:00 96 NIV Bilevel 50 07/02/22 19:55 36.6 07/02/22 19:05 83 07/02/22 19:00 84 40 124/72 (89) 95 NIV Bilevel 50.00 07/02/22 18:24 41 97 50.00 07/02/22 18:00 85 29 120/65 (83) 94 NIV Bilevel 50.00 07/02/22 17:00 85 29 122/94 (103) 96 NIV Bilevel 50.00 07/02/22 16:00 82 33 112/64 (80) 96 NIV Bilevel 50.00 07/02/22 16:00 NIV Bilevel 50 07/02/22 16:00 36.2 07/02/22 15:07 34 98 50.00 07/02/22 15:00 80 33 102/74 (83) 98 NIV Bilevel 50.00 07/02/22 14:00 79 36 100/55 (70) 99 NIV Bilevel 40.00 07/02/22 13:00 80 07/02/22 13:00 81 36 93/48 (63) 96 NIV Bilevel 40.00 07/02/22 12:00 82 33 116/68 (84) 97 NIV Bilevel 40.00 07/02/22 12:00 NIV Bilevel 40 07/02/22 11:53 36.0 07/02/22 11:00 74 23 92/79 (83) 98 NIV Bilevel 40.00 07/02/22 10:41 37 97 50.00 07/02/22 10:00 78 29 97/71 (80) 97 NIV Bilevel 40.00 I & O 07/03/22 07:00 Intake Total 2240 ml Output Total 2150 ml Balance 90 ml Height & Weight Height: 5'6.00" Weight: 220lbs. 0.0oz. 99.749656eb; 33.94 BMI Method:Stated General Appearance: Chronically ill, Moderate Distress HEENT: No Scleral Icterus (L), No Scleral Icterus (R) Neck: Full Range of Motion, Non Tender Respiratory: Decreased Breath Sounds, Respiratory Distress Cardiovascular: Irregularly Irregular, Tachycardia Extremity: Normal Capillary Refill, Normal Inspection Neurologic/Psychiatric: Alert; No Oriented x3, No Normal Mood/Affect; Disoriented Skin: Normal Color, Warm/Dry Lymphatic: No Adenopathy Results Lab Laboratory Tests 07/02/22 05:25 07/03/22 04:22 Assessment/Plan Assessment/Plan 1 AMITA PEREZ MD Jul 03, 2022 09:37
--- NOTE | 2022-07-03 09:59 | Occ Therapy Progress Note ---
Therapy Progress Note Per PT note: Patient on Hold due to current medical and respiratory status. OT will reassess at next available time. JEWEL MARCOS Jul 03, 2022 09:59
--- NOTE | 2022-07-03 10:39 | Consultation - Surgery ---
RAFRICARDO 07/03/22 1039: History of Present Illness History of Present Illness Patient Consulted On(debra/time) 07/03/22 10:39 Date Seen by Provider: Jul 03, 2022 Time Seen by Provider: 10:39 Reason for Visit: lung mass, afib, hypoxia History of Present Illness Consult requested by Dr. Chavez for hemoptysis. Patient is a 67 year old female with a history of chronic hemoptysis, multiple lung masses, emphysema, HTN, paroxysmal afib, CAD, and CVA who was brought to [facility] in [place] on 06/29. Patient was found to be in afib with RVR and was transferred to [facility] on 06/30. Patient is unable to give an accurate history or answer questions at this time due to increasing labored breathing and being on bipap. No family at bedside. Patient was originally brought in for a skin rash on her left lower leg and gluteal region. Her daughter was out of town for three days and the patient was unable to get out of bed and was found laying in her own feces and urine. Patient has been having intermittent hemoptysis since February of this year. During this visit, the patient has been having coughing and hemoptysis every few minutes and has been experiencing increasing dyspnea. The patient's respiratory rates have been in the thirties and forties and her O2 sat when not on bipap has been in the 70-80 percent range. The patient had a CT scan on 03/05/22 that has been requested. Currently waiting on the images. The report lists a mass in the right upper lobe measuring 2 x 1.3 x cm, an area of ground glass opacification in the right upper lung measuring 4.7 x 4.0 x 3.6cm, and right upper lung 4 mm lymph node, and 6 cm nodule in the right upper lobe, a 3.6 mm nodule in the left lower lobe. a 4.8 mm nodule in the left lower lobe, and a 8.3 mm nodule in the right middle lobe. Patient states that she had a biopsy done in March and that it was benign; the results have been requested but not yet received. Patient currently has pneumonia. Allergies and Home Medications Allergies Coded Allergies: methylprednisolone (Verified Allergy, Severe, FACE SWELLING, 05/18/19) Iodinated Contrast- Oral and IV Dye (Verified Allergy, Intermediate, 05/18/19) doxycycline (Unverified Allergy, Intermediate, FACIAL SWELLING, 05/18/19) fluticasone furoate (Verified Allergy, Intermediate, N/V, 05/18/19) paroxetine (Verified Allergy, Intermediate, 05/18/19) vilanterol (Verified Allergy, Intermediate, N/V, 05/18/19) codeine (Verified Allergy, Unknown, HIVES, Has received morphine in the past w/o issue, 05/18/19) fluticasone (Verified Allergy, Unknown, 05/18/19) hydrocodone (Unverified Adverse Reaction, Intermediate, DYSPNEA, HIVES, 05/18/19) oxybutynin (Verified Adverse Reaction, Mild, sores in mouth, 05/18/19) Uncoded Allergies: PAPER TAPE (Allergy, Unknown, BLISTERS/SORES, 07/10/15) Patient Home Medication List Home Medication List Reviewed: Yes Albuterol Sulfate (Ventolin Hfa) 1 Puff Puff, 2 PUFF IH Q4H PRN for SHORTNESS OF BREATH, (Reported) Entered as Reported by: JEANINE LOMAS on 06/14/181411 Last Action: Continued Budesonide/Formoterol Fumarate (Symbicort 80-4.5 Mcg Inhaler) 80 Mcg-4.5 Mcg/Actuation Hfa.aer.ad, 2 PUFF INH BID, (Reported) Entered as Reported by: ELIZABETH JOSEPH on 06/30/221511 Last Action: Converted Cefepime HCl/Dextrose, Iso-Osm (Cefepime 1 gm Injection) 1 Gram/50 Ml Froz.piggy, 1 GM IV Q6H Prescribed by: KISHAN CHAVEZ on 07/03/22 1627 Cider Vinegar (Apple Cider Vinegar) 500 Mg Tablet, 500 MG PO DAILY, (Reported) Entered as Reported by: ELIZABETH JOSEPH on 06/30/221511 Last Action: Held Dicyclomine HCl (Dicyclomine HCl) 20 Mg Tablet, 20 MG PO TID PRN for IBS FLARE, (Reported) Entered as Reported by: JEANINE LOMAS on 06/14/181411 Last Action: Converted Docusate Sodium (Colace) 100 Mg Capsule, 100 MG PO DAILY PRN for CONSTIPATION- 1ST LINE, (Reported) Entered as Reported by: ELIZABETH JOSEPH on 06/30/221511 Last Action: Continued Dronedarone HCl (Multaq) 400 Mg Tablet, 400 MG PO BID Prescribed by: KISHAN CHAVEZ on 07/03/221626 Levocetirizine Dihydrochloride (Levocetirizine Dihydrochloride) 5 Mg Tablet, 5 MG PO HS, (Reported) Entered as Reported by: ROHIT AZEVEDO on 06/13/181604 Last Action: Converted Methylprednisolone Sod Succ/Pf (Solu-Medrol 40 mg Vial) 40 Mg/Ml Vial, 80 MG IV Q6H Prescribed by: KISHAN CHAVEZ on 07/03/221626 Metoprolol Succinate (Metoprolol Succinate) 50 Mg Tab.er.24h, 50 MG PO DAILY Prescribed by: KISHAN CHAVEZ on 07/03/221626 Pantoprazole Sodium (Pantoprazole Sodium) 40 Mg Tablet.dr, 40 MG PO DAILY, (Reported) Entered as Reported by: ROHIT AZEVEDO on 06/13/181604 Last Action: Held Propofol (Diprivan) 10 Mg/Ml Vial, 10 MG IV UD Prescribed by: KISHAN CHAVEZ on 07/03/221626 Simvastatin (Simvastatin) 40 Mg Tablet, 40 MG PO HS, (Reported) Entered as Reported by: ROHIT AZEVEDO on 06/13/181604 Last Action: Converted Tramadol HCl (Tramadol HCl) 50 Mg Tablet, 50-100 MG PO Q4 -6H PRN for PAIN- MODERATE (5-7), (Reported) Entered as Reported by: ELIZABETH JOSEPH on 06/30/221511 Last Action: Continued Vancomycin/0.9 % Sod Chloride (Vanco 1.25 gm/250 ml-0.9% NaCl) 1.25 Gram/250 Ml Plast..bag, 1.25 GM IV DAILY Prescribed by: KISHAN CHAVEZ on 07/03/221626 Venlafaxine HCl (Venlafaxine HCl ER) 150 Mg Tab.er.24, 300 MG PO DAILY, (Reported) Entered as Reported by: ELIZABETH JOSEPH on 06/30/221511 Last Action: Converted Discontinued Medications Apixaban (Eliquis) 5 Mg Tablet, 5 MG PO BID, (Reported) Entered as Reported by: MORAIMA RUANO on 05/18/19 140 Last Action: Held Cephalexin (Cephalexin) 250 Mg Capsule, 250 MG PO TID Discontinued Reason: No Longer Taking Prescribed by: OMAYRA MURCIA on 11/12/19 1051 Last Action: Discontinued Doxepin HCl (Doxepin HCl) 25 Mg Capsule, 25 MG PO HS, (Reported) Discontinued Reason: No Longer Taking Entered as Reported by: MORAIMA RUANO on 05/18/191404 Last Action: Discontinued Furosemide (Furosemide) 20 Mg Tablet, 20 MG PO DAILY PRN for SWELLING, (Report ed) Discontinued Reason: No Longer Taking Entered as Reported by: JEANINE LOMAS on 06/14/18 1412 Last Action: Discontinued Meloxicam (Meloxicam) 15 Mg Tablet, 15 MG PO DAILY, (Reported) Discontinued Reason: No Longer Taking Entered as Reported by: MORAIMA RUANO on 05/18/191404 Last Action: Discontinued Metoprolol Tartrate (Metoprolol Tartrate) 25 Mg Tablet, 25 MG PO BID, (Reported) Entered as Reported by: JEANINE LOMAS on 07/11/15 0831 Last Action: Held Potassium Chloride (Potassium Chloride) 10 Meq Tab.er.prt, 10 MEQ PO DAILY Discontinued Reason: Duplicate Order Prescribed by: JOHN GUZMAN on 11/10/19 1653 Last Action: Discontinued Tofacitinib Citrate (Xeljanz Xr) 11 Mg Tab.er.24h, 11 MG PO DAILY, (Reported) Entered as Reported by: MORAIMA RUANO on 05/18/19 140 Last Action: Held Tofacitinib Citrate (Xeljanz Xr) 11 Mg Tab.er.24h, 11 MG PO DAILY Prescribed by: DEVON FERRARA on 06/30/222025 Last Action: New Order Tramadol HCl (Tramadol HCl) 50 Mg Tablet, 50-100 MG PO EVERY 4-6 HOURS PRN for PAIN-MODERATE Discontinued Reason: Duplicate Order Prescribed by: KISHAN CHAVEZ on 06/29/18 0948 Last Action: Discontinued Venlafaxine HCl (Venlafaxine HCl ER) 150 Mg Cap.er.24h, 300 MG PO DAILY Discontinued Reason: Duplicate Order Prescribed by: ROHIT AZEVEDO on 06/13/18 1605 Last Action: Discontinued Past Cvzggjf-Aylgsc-Oembnb Hx Patient Social History Smoking Status: Former Smoker (Quit 3 weeks ago) Type Used: Cigarettes 2nd Hand Smoke Exposure: Yes Recent Hopitalizations: No Alcohol Use?: No Have you traveled recently?: No Immunizations Up To Date Tetanus Booster (TDap): Unknown Date of Pneumonia Vaccine: Aug 18, 2017 Date of Influenza Vaccine: Aug 18, 2017 Seasonal Allergies Seasonal Allergies: Yes Surgeries History of Surgeries: Yes (port placement/REMOVED, bladder stimulator, Right ear surgery, HEART MONITO) Surgeries: Bladder Surgery (Bladder stimulator), Ear Surgery, Orthopedic (Left shoulder surgery), Tubal Ligation Respiratory History of Respiratory Disorde: Yes Respiratory Disorders: Asthma, Pneumonia, Sleep Apnea, Emphysema Cardiovascular History of Cardiac Disorders: Yes Cardiac Disorders: Coronary Artery Disease, High Cholesterol, Hypertension Neurological History of Neurological Disord: Yes (2 STROKES IN APRIL AND Aug) Neurological Disorders: Neuropathy, Stroke, TIA 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 System Hx 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 Disorders: No Sexually Transmitted Disease: No HIV/AIDS: No [employer] History: Tubal Ligation, Menopausal Genitourinary History of Genitourinary Disor: Yes (bladder stimulator) Genitourinary Disorders: Kidney Infection, Bladder Infection, Renal Failure Gastrointestinal History of Gastrointestinal Di: Yes (Esophageal spasm) Gastrointestinal Disorders: Gastroesophageal Reflux, Irritable Bowel Musculoskeletal History of Musculoskeletal Dis: Yes ("3 bulging disks", CHRONIC BILATERAL LEG PAIN) Musculoskeletal Disorders: Arthritis, Rheumatoid Arthritis, Chronic Back Pain Endocrine History of Endocrine Disorders: No HEENT History of HEENT Disorders: No (GLASSES, DENTURES) Loss of Vision: Denies Hearing Impairment: Denies Cancer History of Cancer: No Psychosocial History of Psychiatric Problem: Yes Behavioral Health Disorders: Anxiety, Depression Integumentary History of Skin or Integumenta: No Blood Transfusions History of Blood Disorders: Yes (Anemia) Adverse Reaction to a Blood Tr: No (N/A) Family Medical History Significant Family History: Cancer, Psychiatric Problems Family Medial History: Dementia 19 MOTHER FH: prostate cancer son, Onset:25's - 30 Review of Systems-General ROS-Unable to Obtain: Increasing labored breathing, on bipap Physical Exam-General Problems Physical Exam Vital Signs Vital Signs - First Documented 06/30/22 06/30/22 07/02/22 02:24 02:29 04:18 Temp 35.6 Pulse 134 Resp 10 B/P (MAP) 115/61 (79) Pulse Ox 95 O2 Delivery Nasal Cannula O2 Flow Rate 2.00 FiO2 40 Capillary Refill : General Appearance: WD/WN, obese HEENT: PERRL/EOMI, normal ENT inspection Respiratory: respiratory distress, accessory muscle use, other (hemoptysis) Cardiovascular: normal peripheral pulses, regular rate, rhythm Gastrointestinal: non tender, soft Rectal: deferred Back: no CVA tenderness, no vertebral tenderness Extremities: non-tender, normal inspection Neurologic/Psychiatric: alert, oriented x 3, motor weakness Skin: warm/dry, rash (Left lower leg and gluteal region) Lymphatic: no adenopathy Data Review Labs Laboratory Tests 07/02/22 11:00: Blood Gas Puncture Site LT RAD, Blood Gas Patient Temperature 36.0, Arterial Blood pH 7.39, Arterial Blood Partial Pressure CO2 39, Arterial Blood Partial Pressure O2 86, Arterial Blood HCO3 24, Arterial Blood Total CO2 24.8, Arterial Blood Oxygen Saturation 98, Arterial Blood Base Excess -0.9, Tanner Test YES-POS, Blood Gas Ventilator Setting NO, Blood Gas Inspired Oxygen 50% 07/03/22 04:22: White Blood Count 8.7, Red Blood Count 3.16L, Hemoglobin 7.8L, Hematocrit 25L, Mean Corpuscular Volume 80, Mean Corpuscular Hemoglobin 25, Mean Corpuscular Hemoglobin Concent 31L, Red Cell Distribution Width 16.3H, Platelet Count 430H, Mean Platelet Volume 9.7, Immature Granulocyte % (Auto) 2, Neutrophils (%) (Auto) 91H, Lymphocytes (%) (Auto) 5L, Monocytes (%) (Auto) 3, Eosinophils (%) (Auto) 0, Basophils (%) (Auto) 0, Neutrophils # (Auto) 7.9H, Lymphocytes # (Auto) 0.4L, Monocytes # (Auto) 0.2, Eosinophils # (Auto) 0.0, Basophils # (Auto) 0.0, Immature Granulocyte # (Auto) 0.1, Sodium Level 136, Potassium Level 3.7, Chloride Level 103, Carbon Dioxide Level 18L, Anion Gap 15H, Blood Urea Nitrogen 13, Creatinine 0.88, Estimat Glomerular Filtration Rate 73, BUN/Creatinine Ratio 15, Glucose Level 185H, Calcium Level 9.0, Corrected Calcium 9.8, Magnesium Level 1.9, Total Bilirubin 0.9, Aspartate Amino Transf (AST/SGOT) 49H, Alanine Aminotransferase (ALT/SGPT) 45, Alkaline Phosphatase 129, C-Reactive Protein High Sensitivity 37.66H, Total Protein 6.8, Albumin 3.0L , Triglycerides Level 122 07/03/22 04:25: Blood Gas Puncture Site LEFT RADIAL, Blood Gas Patient Temperature 36, Arterial Blood pH 7.34*L, Arterial Blood Partial Pressure CO2 41, Arterial Blood Partial Pressure O2 65L, Arterial Blood HCO3 22L, Arterial Blood Total CO2 23.4, Arterial Blood Oxygen Saturation 94, Arterial Blood Base Excess -3.0L, Tanner Test YES-POS, Blood Gas Ventilator Setting NO, Blood Gas Inspired Oxygen 50% BIPAP Microbiology 06/30/22 Urine Culture - Final, Complete Escherichia coli 06/30/22 MRSA Screen - Final, Complete MRSA not isolated Assessment/Plan Assessment/Plan Assessment/Plan Hemoptysis Afib with RVR Pneumonia UTI CAD Urinary retention Biopsy results requested but not received. Have received report of CT scan but waiting on the images. Discuss possible bronchoscopy with washing Continue IV antibiotics Currently in sinus rhythm, monitor, cardiology consulted Patient has bladder stimulator but no battery, sage catheter is in place ADAL LOCKHART DO 07/03/22 5565: History of Present Illness History of Present Illness History of Present Illness Patient is a 67-year-old female has been having hemoptysis. Patient was found to be in A. fib with RVR and was transferred on June 30. Patient currently very labored breathing is on BiPAP. Unable to provide any information so we continue to look through the chart. Patient did say that she has had recent biopsy of a lung mass on the right upper lobe. Patient difficulty again giving any pertinent medical history. Patient is with labored breathing. She has been coughing up blood since about February. Nothing is made it better or worse. Patient also is currently on anticoagulation. This is being placed on hold. Patient is fatigued and working hard to breathe. Chest x-ray on the right upper lobe demonstrate infiltrate Allergies and Home Medications Allergies Coded Allergies: methylprednisolone (Verified Allergy, Severe, FACE SWELLING, 05/18/19) Iodinated Contrast- Oral and IV Dye (Verified Allergy, Intermediate, 05/18/19) doxycycline (Unverified Allergy, Intermediate, FACIAL SWELLING, 05/18/19) fluticasone furoate (Verified Allergy, Intermediate, N/V, 05/18/19) paroxetine (Verified Allergy, Intermediate, 05/18/19) vilanterol (Verified Allergy, Intermediate, N/V, 05/18/19) codeine (Verified Allergy, Unknown, HIVES, Has received morphine in the past w/o issue, 05/18/19) fluticasone (Verified Allergy, Unknown, 05/18/19) hydrocodone (Unverified Adverse Reaction, Intermediate, DYSPNEA, HIVES, 05/18/19) oxybutynin (Verified Adverse Reaction, Mild, sores in mouth, 05/18/19) Uncoded Allergies: PAPER TAPE (Allergy, Unknown, BLISTERS/SORES, 07/10/15) Patient Home Medication List Home Medication List Reviewed: Yes Albuterol Sulfate (Ventolin Hfa) 1 Puff Puff, 2 PUFF IH Q4H PRN for SHORTNESS OF BREATH, (Reported) Entered as Reported by: JEANINE LOMAS on 06/14/181411 Last Action: Continued Budesonide/Formoterol Fumarate (Symbicort 80-4.5 Mcg Inhaler) 80 Mcg-4.5 Mcg/Actuation Hfa.aer.ad, 2 PUFF INH BID, (Reported) Entered as Reported by: ELIZABETH JOSEPH on 06/30/221511 Last Action: Converted Cefepime HCl/Dextrose, Iso-Osm (Cefepime 1 gm Injection) 1 Gram/50 Ml Froz.piggy, 1 GM IV Q6H Prescribed by: KISHAN CHAVEZ on 07/03/22 1627 Cider Vinegar (Apple Cider Vinegar) 500 Mg Tablet, 500 MG PO DAILY, (Reported) Entered as Reported by: ELIZABETH JOSEPH on 06/30/221511 Last Action: Held Dicyclomine HCl (Dicyclomine HCl) 20 Mg Tablet, 20 MG PO TID PRN for IBS FLARE, (Reported) Entered as Reported by: JEANINE LOMAS on 06/14/181411 Last Action: Converted Docusate Sodium (Colace) 100 Mg Capsule, 100 MG PO DAILY PRN for CONSTIPATION- 1ST LINE, (Reported) Entered as Reported by: ELIZABETH JOSEPH on 06/30/221511 Last Action: Continued Dronedarone HCl (Multaq) 400 Mg Tablet, 400 MG PO BID Prescribed by: KISHAN CHAVEZ on 07/03/22 162 Levocetirizine Dihydrochloride (Levocetirizine Dihydrochloride) 5 Mg Tablet, 5 MG PO HS, (Reported) Entered as Reported by: ROHIT AZEVEDO on 06/13/18 1605 Last Action: Converted Methylprednisolone Sod Succ/Pf (Solu-Medrol 40 mg Vial) 40 Mg/Ml Vial, 80 MG IV Q6H Prescribed by: KISHAN CHAVEZ on 07/03/221626 Metoprolol Succinate (Metoprolol Succinate) 50 Mg Tab.er.24h, 50 MG PO DAILY Prescribed by: KISHAN CHAVEZ on 07/03/221626 Pantoprazole Sodium (Pantoprazole Sodium) 40 Mg Tablet.dr, 40 MG PO DAILY, (Reported) Entered as Reported by: ROHIT AZEVEDO on 06/13/18 1605 Last Action: Held Propofol (Diprivan) 10 Mg/Ml Vial, 10 MG IV UD Prescribed by: KISHAN CHAVEZ on 07/03/221626 Simvastatin (Simvastatin) 40 Mg Tablet, 40 MG PO HS, (Reported) Entered as Reported by: ROHIT AZEVEDO on 06/13/18 1605 Last Action: Converted Tramadol HCl (Tramadol HCl) 50 Mg Tablet, 50-100 MG PO Q4 -6H PRN for PAIN- MODERATE (5-7), (Reported) Entered as Reported by: ELIZABETH JOSEPH on 06/30/22 151 Last Action: Continued Vancomycin/0.9 % Sod Chloride (Vanco 1.25 gm/250 ml-0.9% NaCl) 1.25 Gram/250 Ml Plast..bag, 1.25 GM IV DAILY Prescribed by: KISHAN CHAVEZ on 07/03/22 162 Venlafaxine HCl (Venlafaxine HCl ER) 150 Mg Tab.er.24, 300 MG PO DAILY, (Reported) Entered as Reported by: ELIZABETH JOSEPH on 06/30/22 151 Last Action: Converted Discontinued Medications Apixaban (Eliquis) 5 Mg Tablet, 5 MG PO BID, (Reported) Entered as Reported by: MORAIMA RUANO on 05/18/19 1405 Last Action: Held Cephalexin (Cephalexin) 250 Mg Capsule, 250 MG PO TID Discontinued Reason: No Longer Taking Prescribed by: OMAYRA MURCIA on 11/12/19 1051 Last Action: Discontinued Doxepin HCl (Doxepin HCl) 25 Mg Capsule, 25 MG PO HS, (Reported) Discontinued Reason: No Longer Taking Entered as Reported by: MORAIMA RUANO on 05/18/19 1405 Last Action: Discontinued Furosemide (Furosemide) 20 Mg Tablet, 20 MG PO DAILY PRN for SWELLING, (Reported) Discontinued Reason: No Longer Taking Entered as Reported by: JEANINE LOMAS on 06/14/18 1412 Last Action: Discontinued Meloxicam (Meloxicam) 15 Mg Tablet, 15 MG PO DAILY, (Reported) Discontinued Reason: No Longer Taking Entered as Reported by: MORAIMA RUANO on 05/18/19 1405 Last Action: Discontinued Metoprolol Tartrate (Metoprolol Tartrate) 25 Mg Tablet, 25 MG PO BID, (Reported) Entered as Reported by: JEANNIE LOMAS on 07/11/15 0831 Last Action: Held Potassium Chloride (Potassium Chloride) 10 Meq Tab.er.prt, 10 MEQ PO DAILY Discontinued Reason: Duplicate Order Prescribed by: JOHN GUZMAN on 11/10/19 1653 Last Action: Discontinued Tofacitinib Citrate (Xeljanz Xr) 11 Mg Tab.er.24h, 11 MG PO DAILY, (Reported) Entered as Reported by: MROAIMA RUANO on 05/18/19 1405 Last Action: Held Tofacitinib Citrate (Xeljanz Xr) 11 Mg Tab.er.24h, 11 MG PO DAILY Prescribed by: DEVON FERRARA on 06/30/222025 Last Action: New Order Tramadol HCl (Tramadol HCl) 50 Mg Tablet, 50-100 MG PO EVERY 4-6 HOURS PRN for PAIN-MODERATE Discontinued Reason: Duplicate Order Prescribed by: KISHAN CHAVEZ on 06/29/18 0938 Last Action: Discontinued Venlafaxine HCl (Venlafaxine HCl ER) 150 Mg Cap.er.24h, 300 MG PO DAILY Discontinued Reason: Duplicate Order Prescribed by: ROHIT AZEVEDO on 06/13/18 1605 Last Action: Discontinued Past Fqbgwql-Wdklwv-Xvbivw Hx Reviewed Nursing Assessment Reviewed/Agree w Nursing PMH: Yes Family Medical History Significant Family History: No Pertinent Family Hx Family Medial History: Dementia 19 MOTHER FH: prostate cancer son, Onset:25's - 30 Review of Systems-General ROS-Unable to Obtain: Patient has difficulty providing information due to currently on BiPAP. Physical Exam-General Problems Physical Exam General Appearance: mild distress, obese HEENT: PERRL/EOMI, normal ENT inspection Neck: non-tender; No full range of motion; supple Respiratory: respiratory distress, accessory muscle use, other (hemoptysis) Cardiovascular: normal peripheral pulses, regular rate, rhythm Gastrointestinal: non tender, soft Rectal: deferred Back: no CVA tenderness, no vertebral tenderness Extremities: non-tender Neurologic/Psychiatric: alert, oriented x 3, motor weakness Skin: normal color, warm/dry, rash (Left lower leg and gluteal region) Lymphatic: no adenopathy Assessment/Plan Assessment/Plan Assessment/Plan Hemoptysis Afib with RVR Pneumonia UTI CAD Urinary retention Right upper lobe mass, recent bronch Records requested on last bronch/pathology. Feel likely mass is area bleeding coming from. Discuss possible bronchoscopy with washing she understands and wishes to proceed if needed. Also discussed holding anticoagulation since bleeding. Difficult to likely stop bleeding with current equipment available. Would consider transfer to larger facility, I idd discuss thei Continue IV antibiotics Currently in sinus rhythm, monitor, cardiology consulted Hold anticoagulation Patient has bladder stimulator but no battery, sage catheter is in place Supervisory-Addendum Brief Verification & Attestation Participated in pt care: history, MDM, physical Personally performed: exam, history, MDM, supervision of care Care discussed with: Medical Student Procedures: n/a Results interpretation: Verified all documentation Verification and Attestation of Medical Student E/M Service A medical student performed and documented this service in my presence. I reviewed and verified all information documented by the medical student and made modifications to such information, when appropriate. I personally performed the physical exam and medical decision making. Adal Lockhart, Jul 03, 2022,23:40 RICARDO CARBONE Jul 03, 2022 10:39 ADAL LOCKHART DO Jul 03, 2022 23:35
--- NOTE | 2022-07-03 10:56 | Occ Therapy Progress Note ---
Therapy Progress Note Due to decline in medical status pt has been intubated, OT to discharge pt from services. Will need new orders when pt is stable and able to actively participate in skilled therapy. JEWEL MARCOS Jul 03, 2022 10:56
--- NOTE | 2022-07-03 10:58 | Physical Therapy Progress Note ---
Therapy Progress Note Patient to be intubated on this date. PT to dismiss patient from services at this time and will require new orders when patient is medically stable an able to actively participate with skilled therapy. FIDEL JARQUIN PT Jul 03, 2022 10:58
[2022-07-03] MEDS: PROPOFOL DRIP (ICU) 100 ML IV SCH ×2 (11:13→14:09)
--- NOTE | 2022-07-03 11:37 | Diagnostic Imaging Report ---
INDICATION: Endotracheal tube placement. TIME OF EXAM: 11:08 a.m. COMPARISON: Correlation is made with prior chest from one day earlier. FINDINGS: An endotracheal tube has been placed since yesterday's study. Tip of the ET tube appears to be in good position above the phu. NG tube passes in the stomach. Extensive airspace infiltrates throughout the right lung are again noted and are grossly unchanged. Left lung is fairly clear. There is no effusion. No pneumothorax is identified. IMPRESSION: 1. Satisfactory position of the endotracheal tube above the phu. 2. Continued extensive airspace infiltrates throughout the right lung. Dictated by: Dictated on workstation # [id number]
[2022-07-03] MEDS ORDERED: VANCOMYCIN 1250 MG/NS 250 ML IVPB IV SCH ×2 (12:00)
[2022-07-03] MEDS: inSUlin ASPART (NovoLOG) 1 UNIT/0.01 ML (CHARGE PER UNIT) SC SCH ×2 (12:15→18:15)
[2022-07-03 12:30] LABS: ABG BASE EXCESS -6.1 MMOL/L (-2.5-2.5); ABG OXYGEN SATURATION 93 % (94-100); ABG PCO2 49 MMHG (35-45); ABG PO2 70 MMHG (79-93); ABG TCO2 21.9 MMOL/L (21.0-31.0)
[2022-07-03 12:39] LABS: ABG PH 7.24 (7.37-7.43); ALLENS TEST YES-POS; VENTILATOR YES
[2022-07-03 12:40] LABS: PATIENT TEMP 35.9
[2022-07-03 12:41] LABS: INSPIRED O2 100%
--- NOTE | 2022-07-03 12:58 | Progress Note - Hospitalist ---
SIRISHA BETANCUR 07/03/22 1258: Subjective HPI/CC On Admission Date Seen by Provider: Jul 03, 2022 Time Seen by Provider: 12:51 CC: Afib with RVR HPI: This is a 67 yr old female with known afib. She came from [place] with afib. Pt is maintained on Eliquis and placed on Cardizem. She is now at normal sinus rhythm, but sustained NSTEMI. She is having some bowel and bladder dysfunction. She is having some hemoptysis. She has had a bronchoscopy with biopsy before. Subjective/Events-last exam Patient was intubated today after my encounter Patient status is declining Patient was able to tell me day of week and where she was Had no pain to report Patient was in NSR Respiratory effort before intubation was vigorous Most Recent AB. Current Vent settings: 400/16/5/100 Objective Exam Vital Signs Vital Signs Date Time Temp Pulse Resp B/P (MAP) Pulse Ox O2 Delivery O2 Flow Rate FiO2 07/03/22 12:00 83 26 92/62 (72) 100 NIV Bilevel 55.00 07/03/22 11:19 100 07/03/22 08:32 35.8 Capillary Refill : General Appearance: Chronically ill, Obese, Severe Distress HEENT: Moist Mucous Membranes; No Scleral Icterus (L), No Scleral Icterus (R) Neck: Full Range of Motion, Non Tender Respiratory: No Lungs Clear; Accessory Muscle Use, Decreased Breath Sounds, Respiratory Distress Cardiovascular: Regular Rate, Rhythm, No Edema, No Gallop Gastrointestinal: Non Tender, Soft Rectal: Deferred Back: Normal Inspection, No CVA Tenderness Extremity: Normal Capillary Refill, Normal Inspection Neurologic/Psychiatric: Alert; No Oriented x3, No Normal Mood/Affect; Disoriented Skin: Normal Color, Warm/Dry Lymphatic: No Adenopathy Results/Procedures Lab Laboratory Tests 07/03/22 04:22 Patient resulted labs reviewed. 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 Along with multiple indeterminate pulmonary nodules suspicious for metastatic disease. Biopsy was performed, but without results Followed by Dr. Dover UTI Continue on Ceftriaxone Culture shows E.Coli Anemia Urinary Incontinence Insert Rosales Catheter Check working order of bladder stimulator, obtain battery Elevated troponin Cardiolog consulted Monitor and trend troponin- trending down Last stress test was done in April 2022 showing minimal decrease uptake at the inferoapical segment with mild reversibility, overall no significant ischemia was noted, stress score 5, SDS 5, ejection fraction 83%. Severe Debility PT and OT consulted Hypoalbuminemia Currently Infusing Contact Dermatitis- improving Wound Care Consulted MRSA screen negative CAD Continue to monitor Cardiology consulted GERD Maintain Pantaprozole HTN Cardiology consulted-started on BB Peripheral Edema Cardiology ordered Echocardiogram 2D Hyperlipidemia Monitor Lipids Hypokalemia- holding at 3.7 Monitor and replace Anxiety Restart venlafaxine Rheumatoid arthritis Patient requests to restart Xeljanz. Was counseled on why it is currently being withheld Obesity History of Stroke-Last 2016 Maintain on eliquis Bilateral carotid stenosis, US done in November 2019 LUCY CHAVEZ DO 07/04/22 0749: Supervisory-Addendum Brief Verification & Attestation Participated in pt care: history, MDM, physical Personally performed: exam, history, MDM, supervision of care Care discussed with: Medical Student Procedures: n/a Results interpretation: Verified all documentation Verification and Attestation of Medical Student E/M Service A medical student performed and documented this service in my presence. I reviewed and verified all information documented by the medical student and made modifications to such information, when appropriate. I personally performed the physical exam and medical decision making. uLcy Chavez Jul 04, 2022,07:49 SIRISHA BETANCUR Jul 03, 2022 12:58 LUCY CHAVEZ DO Jul 04, 2022 07:49
[2022-07-03] MEDS ORDERED: fentaNYL INJ 100 MCG/2 ML AMP IVP PRN (13:30)
[2022-07-03] MEDS ORDERED: LACTATED RINGERS 1,000 ML IV SCH (13:30)
[2022-07-03] MEDS ORDERED: ETOMIDATE IV SOLN 20 MG/10 ML VIAL IV ONE (14:39)
[2022-07-03] MEDS ORDERED: CEFE1FRO IV (16:27)
[2022-07-03] MEDS ORDERED: METH40VI2 IV (16:27)
[2022-07-03] MEDS ORDERED: PROP10VI48 IV (16:27)
[2022-07-03] MEDS ORDERED: VANC1.257 IV (16:27)
[2022-07-03] MEDS ORDERED: DRON400T6 PO (16:27)
[2022-07-03] MEDS ORDERED: METO50TA7 PO (16:27)
--- NOTE | 2022-07-03 16:31 | Discharge Summary ---
Discharge Summary Hospital Course Was the Problem List Reviewed?: Yes Problems/Dx: (1) Paroxysmal atrial fibrillation (2) Acute on chronic respiratory failure with hypoxemia (3) Primary hypertension (4) Mixed hyperlipidemia (5) Troponin level elevated (6) Respiratory failure (7) Acute respiratory failure with hypoxia Status: Acute (8) Multilobar lung infiltrate Status: Acute (9) Coronary artery disease Status: Chronic (10) Hemoptysis Status: Acute Hospital Course Date of Admission: Jun 30, 2022 at 02:16 Admission Diagnosis : Family Physician/Provider: Valdez Chen Coil Winder Date of Discharge: 07/03/22 Discharge Diagnosis: [ ] Hospital Course: CC: Afib with RVR HPI: This is a 67 yr old female with known afib. She came from [place] with afib. Pt is maintained on Eliquis and placed on Cardizem. She is now at normal sinus rhythm, but sustained NSTEMI. She is having some bowel and bladder dysfunction. She is having some hemoptysis. She has had a bronchoscopy with biopsy before. Subjective/Events-last exam Patient was intubated today after my encounter Patient status is declining Patient was able to tell me day of week and where she was Had no pain to report Patient was in NSR Respiratory effort before intubation was vigorous Short course but patient continued to decline during stay in ICU due to recurrent AF RVR then hemoptysis and then multilobar PNA requiring intubation 07/03/22. IV abx initiated on for new PNA and BiPAP of which she failed requiring intubation. Hemoptysis continued so help ERliquis after last dose this morning and the decision was made to transfer to [place] for endobronchial lesion we assessed on recent records. Labs and Pending Lab Test: Laboratory Tests 07/03/22 04:22: White Blood Count 8.7, Red Blood Count 3.16L, Hemoglobin 7.8L, Hematocrit 25L, Mean Corpuscular Volume 80, Mean Corpuscular Hemoglobin 25, Mean Corpuscular Hemoglobin Concent 31L, Red Cell Distribution Width 16.3H, Platelet Count 430H, Mean Platelet Volume 9.7, Immature Granulocyte % (Auto) 2, Neutrophils (%) (Auto) 91H, Lymphocytes (%) (Auto) 5L, Monocytes (%) (Auto) 3, Eosinophils (%) (Auto) 0, Basophils (%) (Auto) 0, Neutrophils # (Auto) 7.9H, Lymphocytes # (Auto) 0.4L, Monocytes # (Auto) 0.2, Eosinophils # (Auto) 0.0, Basophils # (Auto) 0.0, Immature Granulocyte # (Auto) 0.1, Sodium Level 136, Potassium Level 3.7, Chloride Level 103, Carbon Dioxide Level 18L, Anion Gap 15H, Blood Urea Nitrogen 13, Creatinine 0.88, Estimat Glomerular Filtration Rate 73, BUN/Creatinine Ratio 15, Glucose Level 185H, Calcium Level 9.0, Corrected Calcium 9.8, Magnesium Level 1.9, Total Bilirubin 0.9, Aspartate Amino Transf (AST/SGOT) 49H, Alanine Aminotransferase (ALT/SGPT) 45, Alkaline Phosphatase 129, C-Reactive Protein High Sensitivity 37.66H, Total Protein 6.8, Albumin 3.0L , Triglycerides Level 122, Rheumatoid Factor 46H, Rheumatoid Factor Interpretation AbnormalH, Anti-Nuclear Antibody Screen [Pending], Anti- Neutrophil Cytoplasmic Ab [Pending] 07/03/22 04:25: Blood Gas Puncture Site LEFT RADIAL, Blood Gas Patient Temperature 36, Arterial Blood pH 7.34*L, Arterial Blood Partial Pressure CO2 41, Arterial Blood Partial Pressure O2 65L, Arterial Blood HCO3 22L, Arterial Blood Total CO2 23.4, Arterial Blood Oxygen Saturation 94, Arterial Blood Base Excess -3.0L, Tanner Test YES-POS, Blood Gas Ventilator Setting NO, Blood Gas Inspired Oxygen 50% BIPAP 07/03/22 12:20: Blood Gas Puncture Site LEFT RADIAL, Blood Gas Patient Temperature 35.9, Arterial Blood pH 7.24*L, Arterial Blood Partial Pressure CO2 49H, Arterial Blood Partial Pressure O2 70L, Arterial Blood HCO3 20L, Arterial Blood Total CO2 21.9, Arterial Blood Oxygen Saturation 93L, Arterial Blood Base Excess -6.1L, Tanner Test YES-POS, Blood Gas Ventilator Setting YES, Blood Gas Inspired Oxygen 100% Microbiology 06/30/22 Urine Culture - Final, Complete Escherichia coli 06/30/22 MRSA Screen - Final, Complete MRSA not isolated Home Meds Active Xeljanz Xr (Tofacitinib Citrate) 11 Mg Tab.er.24h 11 Mg PO DAILY Reported Apple Cider Vinegar (Cider Vinegar) 500 Mg Tablet 500 Mg PO DAILY Colace (Docusate Sodium) 100 Mg Capsule 100 Mg PO DAILY PRN Tramadol HCl 50 Mg Tablet 50-100 Mg PO Q4 -6H PRN TAKES 1 TO 2 (50MG) TABS Symbicort 80-4.5 Mcg Inhaler (Budesonide/Formoterol Fumarate) 80 Mcg-4.5 Mcg/Actuation Hfa.aer.ad 2 Puff INH BID Venlafaxine HCl ER (Venlafaxine HCl) 150 Mg Tab.er.24 300 Mg PO DAILY TAKES 2 (150MG) CAPS Eliquis (Apixaban) 5 Mg Tablet 5 Mg PO BID Xeljanz Xr (Tofacitinib Citrate) 11 Mg Tab.er.24h 11 Mg PO DAILY Dicyclomine HCl 20 Mg Tablet 20 Mg PO TID PRN Ventolin Hfa (Albuterol Sulfate) 1 Puff Puff 2 Puff IH Q4H PRN Simvastatin 40 Mg Tablet 40 Mg PO HS Levocetirizine Dihydrochloride 5 Mg Tablet 5 Mg PO HS Pantoprazole Sodium 40 Mg Tablet.dr 40 Mg PO DAILY Metoprolol Tartrate 25 Mg Tablet 25 Mg PO BID Assessment/Pt Instructions [place] Discharge Planning: <30 minutes discharge planning Discharge Instructions Discharge Diet: Other Diet Discharge Physical Examination Vital Signs Vital Signs Date Time Temp Pulse Resp B/P (MAP) Pulse Ox O2 Delivery O2 Flow Rate FiO2 07/03/22 15:39 66 29 100 100 07/03/22 15:33 Mechanical Ventilator 07/03/22 15:07 120/50 07/03/22 15:00 55.00 07/03/22 08:32 35.8 General Appearance: Chronically ill, Other (intubated) Allergies: Coded Allergies: methylprednisolone (Verified Allergy, Severe, FACE SWELLING, 05/18/19) Iodinated Contrast- Oral and IV Dye (Verified Allergy, Intermediate, 05/18/19) doxycycline (Unverified Allergy, Intermediate, FACIAL SWELLING, 05/18/19) fluticasone furoate (Verified Allergy, Intermediate, N/V, 05/18/19) paroxetine (Verified Allergy, Intermediate, 05/18/19) vilanterol (Verified Allergy, Intermediate, N/V, 05/18/19) codeine (Verified Allergy, Unknown, HIVES, Has received morphine in the past w/o issue, 05/18/19) fluticasone (Verified Allergy, Unknown, 05/18/19) hydrocodone (Unverified Adverse Reaction, Intermediate, DYSPNEA, HIVES, 05/18/19) oxybutynin (Verified Adverse Reaction, Mild, sores in mouth, 05/18/19) Uncoded Allergies: PAPER TAPE (Allergy, Unknown, BLISTERS/SORES, 07/10/15) Discharge Summary Date of Admission Jun 30, 2022 at 02:16 Date of Discharge Discharge Date: Jul 03, 2022 Admission Diagnosis Assessment: AF RVR now NSR after Cardizem UTI acute Severe debility Plan: ICU now but move to 4th floor Discharge Diagnosis High risk for intubation (1) Paroxysmal atrial fibrillation Assessment & Plan: She converted back to sinus rhythm with intravenous amiodarone. She is now back on dronedarone. She is on apixaban for stroke prophylaxis. Due to her hemoptysis and possible need for bronchoscopy with biopsy, we may need to place her apixaban on hold. She does not need to be bridged with enoxaparin or heparin when the apixaban is temporarily stopped. (2) Acute on chronic respiratory failure with hypoxemia Assessment & Plan: I suspect this is due to primarily to underlying pulmonary disease as opposed to heart failure. (3) Primary hypertension Assessment & Plan: Her blood pressure has been reasonably well controlled on her home dose of metoprolol. (4) Mixed hyperlipidemia Assessment & Plan: Continue statin medication. (5) Troponin level elevated Assessment & Plan: She had a very minimal elevation of her troponin level. Thi s may have been a type II non-ST elevation myocardial infarction secondary to supply/demand mismatch from the atrial fibrillation as well as her acute on chronic respiratory failure. She is not currently a candidate for an ischemic evaluation. This could be considered as an outpatient. KISHAN CHAVEZ DO Jul 03, 2022 16:31
--- NOTE | 2022-07-03 19:13 | Physician Query Clarification ---
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 From 07/02 Persistent extensive right upper lobe pneumonia. Hacking moist cough, Treatment: Ceftriaxone IV started on day of admission, Vancomycin added on 07/02, supplemental 02, Bipap then required mechanical Ventilation Question: Can you further specify pneumonia per the clinical indicators above? Please document response in the Progress Notes or Discharge Summary. 1. Pneumonia likely present on admission 2. Pneumonia not present on admission 3. Other, with explanation of clinical findings 4. Clinically undetermined, no explanation for clinical findings In responding to this query, please exercise your independent professional judgment. The purpose of this communication is to more accurately reflect the complexity of your patients condition. The fact that a question is asked does not imply that any particular answer is desired or expected. Thank you for timely response to this clarification. Betsey Parks MSN, RN Clinical Nurse Specialist [email or web address] PHYSICIAN RESPONSE: Based on the clinical findings in the record, please respond to the query above on this document as an addendum. Physician Response: Physician Response 2 If you have questions please contact: Physical Optics Teacher: Ext: Thank you for your time and cooperation. Clinical Manager Fund/Physical Optics Teacher This is a permanent part of the medical record BETSEY PARKS Jul 03, 2022 19:13 KISHAN CHAVEZ DO Jul 04, 2022 06:19
[2022-07-04] MEDS ORDERED: TROUGH ORDER-PHARMACY XX NR (11:00)
== END 2022-07-03 19:00 | disposition short-term general hospital (02) | DRG 280 ==
LOC: ICU 02:16
PROVIDERS: ADMIT Internal Medicine; ATTEND Internal Medicine
PROC: 5A09457 Assistance with Respiratory Ventilation, 24-96 Consecutive Hours, Continuous Positive Airway Pressure (ICD-10-PCS; principal; 2022-07-02)
PROC: 5A1935Z Respiratory Ventilation, Less than 24 Consecutive Hours (ICD-10-PCS; 2022-07-03)
PROC: 0BH17EZ Insertion of Endotracheal Airway into Trachea, Via Natural or Artificial Opening (ICD-10-PCS; 2022-07-03)
DX: I48.0 Paroxysmal atrial fibrillation (principal); J18.9 Pneumonia, unspecified organism; I21.A1 Myocardial infarction type 2; J96.21 Acute and chronic respiratory failure with hypoxia; R04.2 Hemoptysis; B37.89 Other sites of candidiasis; E87.1 Hypo-osmolality and hyponatremia; N39.0 Urinary tract infection, site not specified; J44.0 Chronic obstructive pulmonary disease with (acute) lower respiratory infection; I10 Essential (primary) hypertension; Z86.73 Personal history of transient ischemic attack (TIA), and cerebral infarction without residual deficits; Z87.891 Personal history of nicotine dependence; M06.9 Rheumatoid arthritis, unspecified; E66.01 Morbid (severe) obesity due to excess calories; F32.A Depression, unspecified; F41.9 Anxiety disorder, unspecified; F40.00 Agoraphobia, unspecified; K21.9 Gastro-esophageal reflux disease without esophagitis; K58.9 Irritable bowel syndrome, unspecified; I25.10 Atherosclerotic heart disease of native coronary artery without angina pectoris; K76.0 Fatty (change of) liver, not elsewhere classified; G62.9 Polyneuropathy, unspecified; R73.03 Prediabetes; G47.00 Insomnia, unspecified; G89.29 Other chronic pain; G47.30 Sleep apnea, unspecified; Z91.19 Patient's noncompliance with other medical treatment and regimen; E66.9 Obesity, unspecified; Z68.38 Body mass index [BMI] 38.0-38.9, adult; R91.8 Other nonspecific abnormal finding of lung field; L24.9 Irritant contact dermatitis, unspecified cause; R53.83 Other fatigue; E87.6 Hypokalemia; R32 Unspecified urinary incontinence; R53.81 Other malaise; E78.2 Mixed hyperlipidemia; I65.23 Occlusion and stenosis of bilateral carotid arteries; R42 Dizziness and giddiness
CPT/HCPCS: 36410; 36415; 71045; 76937; 80053; 81000; 82550; 82805; 82947; 83735; 84100; 84145; 84478; 84484; 85007; 85025; 85027; 86021; 86038; 86141; 86431; 87070; 87077; 87081; 87088; 87186; 87205; 93005; 94002; 94640; 94660; 94799